=== PATIENT | male | born 1950 | race African-American/Black ===

== ENCOUNTER 2018-10-30 14:33 | Inpatient (IN) | payer MEDICARE, OTHER, SELFPAY ==
[2018-10-30] VITALS (14 sets, daily range): BP systolic 144–182; BP diastolic 84–97; PULSE 37–63; RESP 15–20; TEMP 36.4–36.9; O2SAT 96–100; BMI 33.3; BMI 32.5
[2018-10-30] MEDS: Dextrose 50%-Water 25 GM/50 ML DISP.SYRIN IV (14:41)
--- NOTE | 2018-10-30 15:23 | EKG12_ITS ---
Test Reason : LOW BLOOD SUGAR Blood Pressure : / mmHG Vent. Rate : 048 BPM Atrial Rate : 048 BPM P-R Int : 000 ms QRS Dur : 102 ms QT Int : 470 ms P-R-T Axes : 000 025 077 degrees QTc Int : 419 ms Atrial flutter with slow ventricular response Septal infarct , age undetermined Abnormal ECG Confirmed by JAYMIE DIAS ([id number]), subeditor MEENU PATEL ([id number]) on 11/13/2018 1:49:23 PM Referred By: MARIELENA Confirmed By:JAYMIE DIAS
--- NOTE | 2018-10-30 15:37 | NURSING ---
COAGS AND CHEMISTRIES HEMOLIZED. LAB WILL REPRINT LABELS
[2018-10-30 15:51] LABS: Bedside Glucose 173 mg/dL (70-110)
[2018-10-30 15:51] LABS: Bedside Glucose 97 mg/dL (70-110)
[2018-10-30 15:51] LABS: Bedside Glucose 44 mg/dL (70-110)
--- NOTE | 2018-10-30 16:20 | NURSING ---
112 OBS SYNCOPE, HYPOGLYCEMIA, ATRIAL FLUTTER FOREIGN
[2018-10-30 16:21] LABS: International Normalized Ratio 9.5
[2018-10-30] MEDS: Aspirin 81 MG TAB.CHEW 324 MG PO (16:27)
[2018-10-30 16:30] LABS: Anion Gap 10 (5-15); BUN 19 mg/dL (7-18); BUN/Creat Ratio 18.3 RATIO (10-20); Calcium,Total 8.9 mg/dL (8.5-10.1); Chloride 110 mmol/L (98-107); Creatinine, Serum 1.04 mg/dL (0.70-1.30); EST Glomerular Filtration Rate 76 mL/min (>60); Est Glom Filt Rate - Afr Amer 92 mL/min (>60); Estimated Creatinine Clearance 69.87 ml/min; Glucose 100 mg/dL (74-106); Potassium 4.2 mmol/L (3.5-5.1); Prothrombin Time (Protime)PT. 77.6 SECONDS (11.7-14.9); Sodium Level 142 mmol/L (136-145)
--- NOTE | 2018-10-30 16:35 | CT_ITS ---
STUDY: CT BRAIN WITHOUT CONTRAST REASON FOR EXAM: Male, 68 years old. Fall. History of meningioma removal. RADIATION DOSAGE (If Supplied By Facility): CTDIvol = ( 44.99 ) mGy, DLP = ( 812.98 ) mGycm TECHNIQUE: Transaxial CT imaging of the brain was performed without administration of intravenous contrast material. Individualized dose optimization techniques were used for this CT. COMPARISON: CT dated 06/16/2011 FINDINGS: There are postsurgical changes from resection of the previously seen hyperdense mass (presumed meningioma. There is right frontal, temporal and parietal infarcts with encephalomalacia. There is no acute bleed or infarct. There are stable chronic ischemic changes. The ventricles are normal in configuration. There is no hydrocephalus. The visualized paranasal sinuses are clear. The mastoid air cells are well aerated. There is no skull fracture. CT/Brain/Head without Contrast IMPRESSION: No acute bleed or infarct. Postsurgical changes from resection of the previously seen right-sided hyperdense mass (presumed meningioma). 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 Stable chronic ischemic changes. Electronically Signed: Onel Perez, at 17:31 EST Tel , Service support ,
--- NOTE | 2018-10-30 16:41 | ED.VISSUMM ---
- ER Visit Summary Date of Service: 10/30/18 Chief Complaint: Syncope History of Present Illness: The patient is a 68 M presenting for evaluation secondary to a syncopal episode. Patient reports that he was in the bathroom today, stood up and started to feel as if he was going to be syncopal. This was associated as a lightheaded type feeling. Patient states that he started to fall, grabbed a towel bar, and then fell to the ground. He denies hitting his head. Patient states he was unable to get up off of the ground. EMS was contacted the patient was noted to be profoundly hypoglycemic. Patient informs me that he has been having issues with hypoglycemia recently, and has been self adjusting his dosages. He also endorses that he is been getting recent chest pain. Patient does have an underlying history of chronic atrial flutter. He sees Dr. Kelsey. He denies recent infectious signs or symptoms. Review of systems otherwise negative. Physical Examination: Vital signs notable for heart rate of 57. Well-nourished male no acute distress. Head normocephalic atraumatic. PRL, EOMI. Moist mucous membranes noted. Neck was supple. Heart was bradycardic and regular with a 3 out of 6 systolic murmur. Lungs are clear. Abdomen soft nontender. Back nontender. Extremities nontender nonedematous. Skin normal color no rash. Patient was alert and oriented no lateralizing neurological deficits. Test Results: EKG demonstrates atrial flutter with an atrial rate approximately 200 and a ventricular rate of 48. Troponin indeterminately elevated at 0.09. INR is elevated at 9. CT brain is currently pending Emergency Department Course and Treatment: Patient presented secondary to a syncopal episode. He was initially found to be profoundly hypoglycemic he was given D50 had improvement was given a p.o. diet. 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 He recommended decreasing his beta-zeeshan dose and admitted to the hospital for observation. Patient's laboratory workup shows an indeterminate troponin and an INR of 9. I went back in and spoke with patient again, now he is actually stating that he did hit his head. CT of the brain will be obtained. I discussed this with the hospitalist. Patient will be admitted pending the CT brain which will be followed up. Disposition: Admission pending CT Impression: 1. Syncope 2. Hypoglycemia 3. Chronic atrial flutter 4. Supratherapeutic INR This note was generated with [employer] dictation software. It may contain incorrect words, spelling, and punctuation that were not noted in review of the chart prior to signing ED Disposition - Plan for ED Patient: Chief Complaint: Hypoglycemia Referrals: Pratibha Canales MD [Primary Care Provider] -
--- NOTE | 2018-10-30 16:46 | ED.DCSUM_ITS ---
- ER Visit Summary Date of Service: 10/30/18 Chief Complaint: Syncope History of Present Illness: The patient is a 68 M presenting for evaluation secondary to a syncopal episode. Patient reports that he was in the bathroom today, stood up and started to feel as if he was going to be syncopal. This was associated as a lightheaded type feeling. Patient states that he started to fall, grabbed a towel bar, and then fell to the ground. He denies hitting his head. Patient states he was unable to get up off of the ground. EMS was contacted the patient was noted to be profoundly hypoglycemic. Patient informs me that he has been having issues with hypoglycemia recently, and has been self adjusting his dosages. He also endorses that he is been getting recent chest pain. Patient does have an underlying history of chronic atrial flutter. He sees Dr. Kelsey. He denies recent infectious signs or symptoms. Review of systems otherwise negative. Physical Examination: Vital signs notable for heart rate of 57. Well-nourished male no acute distress. Head normocephalic atraumatic. PRL, EOMI. Moist mucous membranes noted. Neck was supple. Heart was bradycardic and regular with a 3 out of 6 systolic murmur. Lungs are clear. Abdomen soft nontender. Back nontender. Extremities nontender nonedematous. Skin normal color no rash. Patient was alert and oriented no lateralizing neurological deficits. Test Results: EKG demonstrates atrial flutter with an atrial rate approximately 200 and a ventricular rate of 48. Troponin indeterminately elevated at 0.09. INR is elevated at 9. CT brain is currently pending Emergency Department Course and Treatment: Patient presented secondary to a syncopal episode. He was initially found to be profoundly hypoglycemic he was given D50 had improvement was given a p.o. diet. 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 He recommended decreasing his beta- zeeshan dose and admitted to the hospital for observation. Patient's laboratory workup shows an indeterminate troponin and an INR of 9. I went back in and spoke with patient again, now he is actually stating that he did hit his head. CT of the brain will be obtained. I discussed this with the hospitalist. Patient will be admitted pending the CT brain which will be followed up. Disposition: Admission pending CT Impression: 1. Syncope 2. Hypoglycemia 3. Chronic atrial flutter 4. Supratherapeutic INR This note was generated with [employer] dictation software. It may contain incorrect words, spelling, and punctuation that were not noted in review of the chart kurtis or to signing ED Disposition - Plan for ED Patient: Chief Complaint: Hypoglycemia Referrals: Pratibha Canales MD [Primary Care Provider] -
[2018-10-30 16:49] LABS: Absolute Lymphocyte Count 0.35 X10^3/ul (0.83-4.51); Absolute Neutrophil Count 8.6 X10^3/uL (2.0-7.7); Basophil# 0.02 X10^3/uL; Basophil% 0.2 % (0-1); Differential Indicated SCAN CRITERIA MET; Eosinophil# 0.13 X10^3/uL; Eosinophils% 1.3 % (0-5); Hematocrit 36.6 % (40-54); Hemoglobin 11.2 g/dl (13.0-16.5); Lymphocyte # 0.35 X10^3/ul (4.0); Lymphocyte % 3.6 % (19-41); Mean Corp Hgb Conc 30.6 g/gl (32-36); Mean Corpuscular Hgb 25.3 pg (27.0-32.0); Mean Corpuscular Volume 82.6 fL (80-94); Monocyte# 0.64 X10^3/uL; Monocyte% 6.6 % (0-10); Neutrophil % 88.1 % (47-70); POSITIVE COUNT NO; POSITIVE DIFFERENTIAL YES; POSITIVE MORPHOLOGY YES; Platelet Count 173 K/mm3 (150-450); RBC Distribution Width CV 21.7 % (11.6-14.6); RBC Distribution Width SD 66.3 fl (35.1-43.9); Red Blood Count 4.43 M/mm3 (4.6-6.2); White Blood Count 9.8 K/mm3 (4.4-11.0)
[2018-10-30 17:02] LABS: Anisocytosis 2+; Hypochromasia 2+; Platelet Estimate ADEQUATE (ADEQ); Target Cells 1+
--- NOTE | 2018-10-30 18:00 | PCM.HP.STD ---
Problem List (1) Syncope Status: Acute Qualifiers: Syncope type: unspecified Qualified Code(s): R55 - Syncope and collapse History of Present Illness Date of Admission: 10/30/18 Chief Complaint: Syncope The patient is a 68 year old M who was seen in the emergency room at [facility] after being brought in by squad after he was found at home on his floor. Patient remembers having what he describes as a syncopal episode, EMS checked patient's blood sugar at home and found it to be 50, IM glucagon and oral glucose was given in the next check by squad was a blood sugar of 27, it was then checked a third time and it was 33. Patient arrived in the emergency room and was alert and oriented x3, initially labs could not be obtained due to poor venous access. Labs were finally obtained and patient's INR was elevated at 9.5, white blood cell count was normal at 9.8, hemoglobin was slightly low at 11.2, chemistry profile was remarkable for a BUN of 19, troponin was slightly elevated at 0.090. During my examination of the patient, he stated that he felt that he hit the back of his head when he passed out, I requested a CT of the head be performed which was negative for evidence of hemorrhage. Patient will be placed in observation status on PCU for syncope with elevated INR-it is not clear whether the patient became hypoglycemic and had a syncopal episode from this or whether he passed out and then became hypoglycemic. Patient's EKG demonstrated atrial flutter with a ventricular rate of approximately 48, the patient's relationship advisor was contacted and verify that the patient normally has this rhythm at this rate.. Past Medical History Allergies No Known Allergies Allergy (Verified 10/30/18 14:41) Home Medications: Ambulatory Orders Medication Instructions Recorded Albuterol Sulfate [Ventolin Hfa] 2 puff INHALATION Q6H PRN PRN 10/30/18 Bumetanide 1 - 2 mg PO PRN PRN 10/30/18 Cholecalciferol (VIT D3) [Vitamin 1,000 unit PO DAILY 10/30/18 D] Glimepiride 2 mg PO DAILY 10/30/18 Insulin Glargine,Hum.rec.anlog 20 unit SQ QHS 10/30/18 [Basaglesperanza Alvarez U-100] Lisinopril 40 mg PO DAILY 10/30/18 Metformin(XR) [Glucophage Xr] 2,000 mg PO DAILY 10/30/18 Metoprolol Tartrate 50 mg PO BID 10/30/18 Multivit-Min/FA/Lycopen/Lutein 1 tab PO DAILY 10/30/18 [Centrum Silver Men Tablet] Omeprazole 20 mg PO BID 10/30/18 Pravastatin Sodium 20 mg PO DAILY 10/30/18 Spironolactone 25 mg PO BID 10/30/18 Topiramate 25 mg PO BID 10/30/18 Warfarin Sodium 3 mg PO MOWEFR 10/30/18 Warfarin Sodium 6 mg PO SUTUTHSA 10/30/18 Surgical History: tonsillectomy, - - Surgery for removal of brain tumor Psychiatric History: No pertinent psych hx Lives: Alone Smoking Status: Former smoker Tobacco Use: Cigarettes Alcohol: None Drugs: None - *Family History Maternal History Items: Stroke Paternal History Items: Heart Disease Review of Systems Constitutional: Denies: Anorexia, Chills, Fever, Night Sweats, Malaise, Weakness, Weight Change, Fatigue Eyes: Denies: Cataracts, Conjunctivae Inflammation, Double vision, Drainage HEENT: Denies: Difficulty Swallowing, Dysphasia, Ear Pain, Eye Pain, Hearing Changes, Nasal bleeding, Nasal Congestion, Post Nasal Drip Cardiovascular: Reports: Syncope - As outlined in chief complaint. Denies: Chest Pain, Claudication, Chest Pressure, Chest Tightness, Edema, Heaviness, Light Headedness, Orthopnea, Palpitations, Paroxysmal Noc. Dyspnea Respiratory: Denies: Cough, Hemoptysis, Pleuritic Pain, Shortness of Breath, Shortness of breath at rest, Shortness of breath upon exertion, Sputum production, Wheezing Gastrointestinal: Denies: Abdominal Pain, Constipation, Diarrhea, Hematemesis, Hematochezia, Nausea, Melena, Vomiting Genitourinary: Denies: Dysuria, Frequency, Hematuria, Hesitancy, Nocturia, Retention, Urgency Musculoskeletal: Denies: Back Pain, Foot Pain, Joint Pain, Joint stiffness, Joint swelling, Joint Tenderness, Leg Pain Skin: Denies: Dryness, Jaundice, Lesions, Pruritis, Rash Neurological: Reports: Seizures - Past history of seizure disorder. Denies: Balance problems, Blurred vision, Double vision, Change in Speech, Slurred speech, Confusion, Difficulty swallowing, Focal weakness, Headaches, Incoordination, Numbness, Tingling Psychiatric: Denies: Anxiety, Depression, Homicidal Ideations, Suicidal Ideations Endocrine: Denies: Change in Body Habitus, Heat/ Cold Intolerance, Polydipsia, Polyuria, Hx of Irradiation Hematologic/ Lymphatic: Denies: Adenopathy, Anemia, Easy Bruising, Easy Bleeding, Petechiae, Purpura VTE Information - Inpt Only VTE Present on Admission: No VTE Mechan Device Prophylaxis: None VTE Pharm Prophylaxis ordered?: No Reason prophylaxis not ordered:: Medical Contraindication - Patient's INR is elevated due to warfarin use Patient Problems: Active and Suspected Problems Syncope (Acute) - Physical Exam General: Alert, Oriented x3, Cooperative, No apparent distress, Well developed, Well nourished HEENT: Atraumatic, PERRLA, EOMI, Normocephalic Oral: Moist Mucosa Neck: Supple, No JVD, Negative Carotid Bruits, No Nuchal Rigidity, Trachea Midline, Thyroid Normal Size and Texture Lungs: Clear to auscultation, Normal air movement, No rhonchi, No wheeze, No rales Cardiovascular: PMI Normal, Irregular Rate, No rub noted, No Gallop Abdomen: Bowel Sounds Present, Soft, Non Tender, Non-Distended, No hernias noted Extremities: No clubbing, No cyanosis, Capillary Refill Less than 3 Seconds Skin: No rashes, No breakdown Musculoskeletal: No Tenderness to Palpation of Joints or Extremities Neurological: Cranial nerves II-XII grossly intact, Neuro grossly intact, Sensory exam intact to light touch and pain, Coordination normal Psych/Mental Status: Normal Affect, Appropriate, Alert and oriented to time, place, person, mood and affect Vital Signs Temp Pulse Resp BP Pulse Ox 98.3 F 47 L 19 H 144/86 H 99 10/30/18 14:34 10/30/18 17:00 10/30/18 17:00 10/30/18 17:00 10/30/18 17:00 Oxygen Flow Rate (L/min) 2 Oxygen Delivery Method Nasal Cannula Weight: 102.3 kg Body Mass Index (BMI) 33.3 Finger Stick Blood Glucose 173 Laboratory Tests Past 24 Hrs 10/30/18 10/30/18 10/30/18 15:00 15:00 16:00 WBC 9.8 RBC 4.43 L Hgb 11.2 L Hct 36.6 L MCV 82.6 MCH 25.3 L MCHC 30.6 L RDW 21.7 H RDW Differential 66.3 H Plt Count 173 MPV 10.0 Immature Gran % (Auto) 0.200 Neut % (Auto) 88.1 H Lymph % (Auto) 3.6 L [place] % (Auto) 6.6 Eos % (Auto) 1.3 Baso % (Auto) 0.2 Absolute Neuts (auto) 8.6 H Absolute Lymphs (auto) 0.35 L Total Counted Not Reportable Differential Comment Platelet Estimate ADEQUATE Hypochromasia 2+ Anisocytosis 2+ Target Cells 1+ PT Cancelled INR Cancelled Sodium Cancelled Potassium Cancelled Chloride Cancelled Carbon Dioxide Cancelled Anion Gap Cancelled BUN Cancelled Creatinine Cancelled Estim Creat Clear Calc Cancelled Est GFR (MDRD) Af Amer Cancelled Est GFR (MDRD) Non-Af Cancelled BUN/Creatinine Ratio Cancelled Glucose Cancelled Calcium Cancelled Troponin I Cancelled 10/30/18 10/30/18 16:00 16:00 WBC RBC Hgb Hct MCV MCH MCHC RDW RDW Differential Plt Count MPV Immature Gran % (Auto) Neut % (Auto) Lymph % (Auto) [place] % (Auto) Eos % (Auto) Baso % (Auto) Absolute Neuts (auto) Absolute Lymphs (auto) Total Counted Differential Comment Platelet Estimate Hypochromasia Anisocytosis Target Cells PT 77.6 H INR 9.5 H* Sodium 142 Potassium 4.2 Chloride 110 H Carbon Dioxide 22.0 Anion Gap 10 BUN 19 H Creatinine 1.04 Estim Creat Clear Calc 69.87 Est GFR (MDRD) Af Amer 92 Est GFR (MDRD) Non-Af 76 BUN/Creatinine Ratio 18.3 Glucose 100 Calcium 8.9 Troponin I 0.090 H POC Glucose 10/30/18 10/30/18 10/30/18 15:42 15:05 14:37 POC Glucose 173 H 97 44 L* Assessment/Plan All Active Problems Syncope (Acute) #1 syncope-etiology unknown, possibly secondary to hypoglycemia, patient will be placed in observation status on PCU, he will be monitored on telemetry #2 hypoglycemia-I will hold the patient's long-acting insulin and give the patient insulin per protocol based on fingerstick blood sugars. #3 supratherapeutic INR-patient's INR is 9.5, I will hold the patient's warfarin and recheck INR in the morning, I did not give the patient vitamin K however, there is no signs of any bleeding at this time #4 elevated troponin-significance unknown, cardiac enzymes will be cycled #5 atrial flutter-chronic #6 past history of seizure disorder-patient still takes Topamax, he states that it has been a while since he seen a neurologist, I do not think that the patient had a seizure based on the history I obtained today. #7 essential hypertension #8 hyperlipidemia Code Visit OBSV E&M: 87143 Initial observation care L3
--- NOTE | 2018-10-30 18:05 | HP.PCM_ITS ---
Problem List (1) Syncope Status: Acute Qualifiers: Syncope type: unspecified Qualified Code(s): R55 - Syncope and collapse History of Present Illness Date of Admission: 10/30/18 Chief Complaint: Syncope The patient is a 68 year old M who was seen in the emergency room at [facility] after being brought in by squad after he was found at home on his floor. Patient remembers having what he describes as a syncopal episode, EMS checked patient's blood sugar at home and found it to be 50, IM glucagon and oral glucose was given in the next check by squad was a blood sugar of 27, it was then checked a third time and it was 33. Patient arrived in the emergency room and was alert and oriented x3, initially labs could not be obtained due to poor venous access. Labs were finally obtained and patient's INR was elevated at 9.5, white blood cell count was normal at 9.8, hemoglobin was slightly low at 11.2, chemistry profile was remarkable for a BUN of 19, troponin was slightly e levated at 0.090. During my examination of the patient, he stated that he felt that he hit the back of his head when he passed out, I requested a CT of the head be performed which was negative for evidence of hemorrhage. Patient will be placed in observation status on PCU for syncope with elevated INR-it is not clear whether the patient became hypoglycemic and had a syncopal episode from this or whether he passed out and then became hypoglycemic. 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 Past Medical History Allergies No Known Allergies Allergy (Verified 10/30/18 14:41) Home Medications: Ambulatory Orders Medication Instructions Recorded Albuterol Sulfate [Ventolin Hfa] 2 puff INHALATION Q6H PRN PRN 10/30/18 Bumetanide 1 - 2 mg PO PRN PRN 10/30/18 Cholecalciferol (VIT D3) [Vitamin 1,000 unit PO DAILY 10/30/18 D] Glimepiride 2 mg PO DAILY 10/30/18 Insulin Glargine,Hum.rec.anlog 20 unit SQ QHS 10/30/18 [Basaglesperanza Alvarez U-100] Lisinopril 40 mg PO DAILY 10/30/18 Metformin(XR) [Glucophage Xr] 2,000 mg PO DAILY 10/30/18 Metoprolol Tartrate 50 mg PO BID 10/30/18 Multivit-Min/FA/Lycopen/Lutein 1 tab PO DAILY 10/30/18 [Centrum Silver Men Tablet] Omeprazole 20 mg PO BID 10/30/18 Pravastatin Sodium 20 mg PO DAILY 10/30/18 Spironolactone 25 mg PO BID 10/30/18 Topiramate 25 mg PO BID 10/30/18 Warfarin Sodium 3 mg PO MOWEFR 10/30/18 Warfarin Sodium 6 mg PO SUTUTHSA 10/30/18 Surgical History: tonsillectomy, - - Surgery for removal of brain tumor Psychiatric History: No pertinent psych hx Lives: Alone Smoking Status: Former smoker Tobacco Use: Cigarettes Alcohol: None Drugs: None - *Family History Maternal History Items: Stroke Paternal History Items: Heart Disease Review of Systems Constitutional: Denies: Anorexia, Chills, Fever, Night Sweats, Malaise, Weakness, Weight Change, Fatigue Eyes: Denies: Cataracts, Conjunctivae Inflammation, Double vision, Drainage HEENT: Denies: Difficulty Swallowing, Dysphasia, Ear Pain, Eye Pain, Hearing Becky nges, Nasal bleeding, Nasal Congestion, Post Nasal Drip Cardiovascular: Reports: Syncope - As outlined in chief complaint. Denies: Chest Pain, Claudication, Chest Pressure, Chest Tightness, Edema, Heaviness, Light Headedness, Orthopnea, Palpitations, Paroxysmal Noc. Dyspnea Respiratory: Denies: Cough, Hemoptysis, Pleuritic Pain, Shortness of Breath, Shortness of breath at rest, Shortness of breath upon exertion, Sputum production, Wheezing Gastrointestinal: Denies: Abdominal Pain, Constipation, Diarrhea, Hematemesis, H ematochezia, Nausea, Melena, Vomiting Genitourinary: Denies: Dysuria, Frequency, Hematuria, Hesitancy, Nocturia, Retention, Urgency Musculoskeletal: Denies: Back Pain, Foot Pain, Joint Pain, Joint stiffness, Joint swelling, Joint Tenderness, Leg Pain Skin: Denies: Dryness, Jaundice, Lesions, Pruritis, Rash Neurological: Reports: Seizures - Past history of seizure disorder. Denies: Balance problems, Blurred vision, Double vision, Change in Speech, Slurred speech, Confusion, Difficulty swallowing, Focal weakness, Headaches, Incoordination, Numbness, Tingling Psychiatric: Denies: Anxiety, Depression, Homicidal Ideations, Suicidal Ideations Endocrine: Denies: Change in Body Habitus, Heat/ Cold Intolerance, Polydipsia, Polyuria, Hx of Irradiation Hematologic/ Lymphatic: Denies: Adenopathy, Anemia, Easy Bruising, Easy Bleeding, Petechiae, Purpura VTE Information - Inpt Only VTE Present on Admission: No VTE Mechan Device Prophylaxis: None VTE Pharm Prophylaxis ordered?: No Reason prophylaxis not ordered:: Medical Contraindication - Patient's INR is elevated due to warfarin use Patient Problems: Active and Suspected Problems Syncope (Acute) - Physical Exam General: Alert, Oriented x3, Cooperative, No apparent distress, Well developed, Well nourished HEENT: Atraumatic, PERRLA, EOMI, Normocephalic Oral: Moist Mucosa Neck: Supple, No JVD, Negative Carotid Bruits, No Nuchal Rigidity, Trachea Midline, Thyroid Normal Size and Texture Lungs: Clear to auscultation, Normal air movement, No rhonchi, No wheeze, No rales Cardiovascular: PMI Normal, Irregular Rate, No rub noted, No Gallop Abdomen: Bowel Sounds Present, Soft, Non Tender, Non-Distended, No hernias noted Extremities: No clubbing, No cyanosis, Capillary Refill Less than 3 Seconds Skin: No rashes, No breakdown Musculoskeletal: No Tenderness to Palpation of Joints or Extremities Neurological: Cranial nerves II-XII grossly intact, Neuro grossly intact, Sensory exam intact to light touch and pain, Coordination normal Psych/Mental Status: Normal Affect, Appropriate, Alert and oriented to time, place, person, mood and affect Vital Signs Temp Pulse Resp BP Pulse Ox 98.3 F 47 L 19 H 144/86 H 99 10/30/18 14:34 10/30/18 17:00 10/30/18 17:00 10/30/18 17:00 10/30/18 17:00 Oxygen Flow Rate (L/min) 2 Oxygen Delivery Method Nasal Cannula Weight: 102.3 kg Body Mass Index (BMI) 33.3 Finger Stick Blood Glucose 173 Laboratory Tests Past 24 Hrs 10/30/18 10/30/18 10/30/18 15:00 15:00 16:00 WBC 9.8 RBC 4.43 L Hgb 11.2 L Hct 36.6 L MCV 82.6 MCH 25.3 L MCHC 30.6 L RDW 21.7 H RDW Differential 66.3 H Plt Count 173 MPV 10.0 Immature Gran % (Auto) 0.200 Neut % (Auto) 88.1 H Lymph % (Auto) 3.6 L [place] % (Auto) 6.6 Eos % (Auto) 1.3 Baso % (Auto) 0.2 Absolute Neuts (auto) 8.6 H Absolute Lymphs (auto) 0.35 L Total Counted Not Reportable Differential Comment Platelet Estimate ADEQUATE Hypochromasia 2+ Anisocytosis 2+ Target Cells 1+ PT Cancelled INR Cancelled Sodium Cancelled Potassium Cancelled Chloride Cancelled Carbon Dioxide Cancelled Anion Gap Cancelled BUN Cancelled Creatinine Cancelled Estim Creat Clear Calc Cancelled Est GFR (MDRD) Af Amer Cancelled Est GFR (MDRD) Non-Af Cancelled BUN/Creatinine Ratio Cancelled Glucose Cancelled Calcium Cancelled Troponin I Cancelled 10/30/18 10/30/18 16:00 16:00 WBC RBC Hgb Hct MCV MCH MCHC RDW RDW Differential Plt Count MPV Immature Gran % (Auto) Neut % (Auto) Lymph % (Auto) [place] % (Auto) Eos % (Auto) Baso % (Auto) Absolute Neuts (auto) Absolute Lymphs (auto) Total Counted Differential Comment Platelet Estimate Hypochromasia Anisocytosis Target Cells PT 77.6 H INR 9.5 H* Sodium 142 Potassium 4.2 Chloride 110 H Carbon Dioxide 22.0 Anion Gap 10 BUN 19 H Creatinine 1.04 Estim Creat Clear Calc 69.87 Est GFR (MDRD) Af Amer 92 Est GFR (MDRD) Non-Af 76 BUN/Creatinine Ratio 18.3 Glucose 100 Calcium 8.9 Troponin I 0.090 H POC Glucose 10/30/18 10/30/18 10/30/18 15:42 15:05 14:37 POC Glucose 173 H 97 44 L* Assessment/Plan All Active Problems Syncope (Acute) #1 syncope-etiology unknown, possibly secondary to hypoglycemia, patient will be placed in observation status on PCU, he will be monitored on telemetry #2 hypoglycemia-I will hold the patient's long-acting insulin and give the patient insulin per protocol based on fingerstick blood sugars. #3 supratherapeutic INR-patient's INR is 9.5, I will hold the patient's warfarin and recheck INR in the morning, I did not give the patient vitamin K however, there is no signs of any bleeding at this time #4 elevated troponin-significance unknown, cardiac enzymes will be cycled #5 atrial flutter-chronic #6 past history of seizure disorder-patient still takes Topamax, he states that it has been a while since he seen a neurologist, I do not think that the patient had a seizure based on the history I obtained today. #7 essential hypertension #8 hyperlipidemia Code Visit OBSV E&M: 29127 Initial observation care L3
[2018-10-30 18:51] LABS: Bedside Glucose 58 mg/dL (70-110)
[2018-10-30] MEDS: 0.9% Normal Saline 1,000 ML 75 ML IV (18:59)
[2018-10-30 19:20] LABS: Bedside Glucose 71 mg/dL (70-110)
[2018-10-30 19:20] LABS: Bedside Glucose 87 mg/dL (70-110)
[2018-10-30] MEDS: Spironolactone 25 MG Tablet PO (20:51)
[2018-10-30] MEDS: Glucerna Shake 120 ML LIQUID PO (20:51)
[2018-10-30] MEDS: Metoprolol Tartrate 50 MG Tablet PO (20:51)
[2018-10-30] MEDS: Topiramate 25 MG Tablet PO (20:53)
[2018-10-30] MEDS: Pantoprazole Sodium 20 MG Tablet PO (20:53)
[2018-10-30] MEDS: Pravastatin 20 MG Tablet PO (20:53)
[2018-10-30 21:46] LABS: Bedside Glucose 113 mg/dL (70-110)
[2018-10-31] VITALS (22 sets, daily range): BP systolic 98–157; BP diastolic 66–93; PULSE 34–74; RESP 18–24; TEMP 36.3–36.7; O2SAT 94–100
[2018-10-31] MEDS: DiphenhydrAMINE 25 MG Capsule 50 MG PO ×2 (00:07→23:29)
[2018-10-31] MEDS: Albuterol 2.5 MG/3 ML VIAL.NEB. INHALATION (04:18)
[2018-10-31 04:52] LABS: Bedside Glucose 69 mg/dL (70-110)
[2018-10-31 04:52] LABS: Bedside Glucose 48 mg/dL (70-110)
[2018-10-31 04:52] LABS: Bedside Glucose 82 mg/dL (70-110)
[2018-10-31] MEDS: Ipratropium/Albuterol Sulfate 3 ML AMPUL.NEB INHALATION ×4 (06:58→19:45)
[2018-10-31 07:01] LABS: Anion Gap 9 (5-15); BUN 17 mg/dL (7-18); BUN/Creat Ratio 15.9 RATIO (10-20); Calcium,Total 8.5 mg/dL (8.5-10.1); Chloride 113 mmol/L (98-107); Creatinine, Serum 1.07 mg/dL (0.70-1.30); EST Glomerular Filtration Rate 73 mL/min (>60); Est Glom Filt Rate - Afr Amer 89 mL/min (>60); Estimated Creatinine Clearance 67.91 ml/min; Glucose 82 mg/dL (74-106); Potassium 4.4 mmol/L (3.5-5.1); Sodium Level 144 mmol/L (136-145)
[2018-10-31 07:06] LABS: Bedside Glucose 79 mg/dL (70-110)
[2018-10-31 07:06] LABS: Bedside Glucose 93 mg/dL (70-110)
[2018-10-31 07:09] LABS: Prothrombin Time (Protime)PT. 77.4 SECONDS (11.7-14.9)
[2018-10-31 07:48] LABS: International Normalized Ratio 9.5
[2018-10-31] MEDS: Topiramate 25 MG Tablet PO ×2 (09:38→21:20)
[2018-10-31] MEDS: Pantoprazole Sodium 20 MG Tablet PO ×2 (09:38→21:20)
[2018-10-31] MEDS: Spironolactone 25 MG Tablet PO ×2 (09:38→21:20)
[2018-10-31] MEDS: Lisinopril 40 MG Tablet PO (09:38)
[2018-10-31] MEDS: Phytonadione (Vit K) 10 MG/ML Ampul 5 MG PO (09:39)
--- NOTE | 2018-10-31 09:49 | PCM.PN.HOSP ---
Patient Problems: Active and Suspected Problems Syncope (Acute) Subjective: Feels better, though still a little weak. Hi BG was 48 earlier this morning. No fevers, chills, or SOB. Vitals/I&O's: Vital Signs Temp Pulse Resp BP Pulse Ox 98.1 F 47 L 20 H 141/77 H 94 10/31/18 09:38 10/31/18 09:38 10/31/18 09:38 10/31/18 09:38 10/31/18 09:38 Oxygen Flow Rate (L/min) 2 Oxygen Delivery Method Room Air Weight: 220 lb 3.869 oz Body Mass Index (BMI) 32.5 Finger Stick Blood Glucose 173 Intake and Output for Last 24 Hours 10/29/18 10/30/18 10/31/18 23:59 23:59 23:59 Intake Total 809 / 809 1121 / 1121 Balance 809 / 809 1121 / 1121 General: Alert, Oriented x3, Cooperative, No apparent distress HEENT: Atraumatic, EOMI, Normocephalic Oral: Moist Mucosa Neck: Supple, No JVD Lungs: Clear to auscultation, Normal air movement, No rhonchi, No wheeze, No rales Cardiovascular: Regular rate, Regular Rhythm, Normal S1, Normal S2, No murmurs Abdomen: Soft, Non Tender, Non-Distended, No Hepato-splenomegaly Extremities: No edema, Capillary Refill Less than 3 Seconds Skin: No rashes, No breakdown Neurological: Neuro grossly intact, Sensory exam intact to light touch and pain Psych/Mental Status: Normal Affect, Appropriate Laboratory Results 10/30/18 14:37: POC Glucose 44 L* 10/30/18 15:00: Sodium Cancelled, Potassium Cancelled, Chloride Cancelled, Carbon Dioxide Cancelled, Anion Gap Cancelled, BUN Cancelled, Creatinine Cancelled, Estim Creat Clear Calc Cancelled, Est GFR (MDRD) Af Amer Cancelled, Est GFR (MDRD) Non-Af Cancelled, BUN/Creatinine Ratio Cancelled, Glucose Cancelled, Calcium Cancelled, Troponin I Cancelled 10/30/18 15:00: PT Cancelled, INR Cancelled 10/30/18 15:05: POC Glucose 97 10/30/18 15:42: POC Glucose 173 H 10/30/18 16:00: WBC 9.8, RBC 4.43 L, Hgb 11.2 L, Hct 36.6 L, MCV 82.6, MCH 25.3 L, MCHC 30.6 L, RDW 21.7 H, RDW Differential 66.3 H, Plt Count 173, MPV 10.0, Immature Gran % (Auto) 0.200, Neut % (Auto) 88.1 H, Lymph % (Auto) 3.6 L, [place] % (Auto) 6.6, Eos % (Auto) 1.3, Baso % (Auto) 0.2, Absolute Neuts (auto) 8.6 H, Absolute Lymphs (auto) 0.35 L, Total Counted Not Reportable, Differential Comment , Platelet Estimate ADEQUATE, Hypochromasia 2+, Anisocytosis 2+, Target Cells 1+ 10/30/18 16:00: Sodium 142, Potassium 4.2, Chloride 110 H, Carbon Dioxide 22.0, Anion Gap 10, BUN 19 H, Creatinine 1.04, Estim Creat Clear Calc 69.87, Est GFR (MDRD) Af Amer 92, Est GFR (MDRD) Non-Af 76, BUN/Creatinine Ratio 18.3, Glucose 100, Calcium 8.9, Troponin I 0.090 H 10/30/18 16:00: PT 77.6 H, INR 9.5 H* 10/30/18 18:31: POC Glucose 58 L 10/30/18 18:55: POC Glucose 71 10/30/18 19:15: POC Glucose 87 10/30/18 19:28: Troponin I 0.103 H 10/30/18 20:42: POC Glucose 113 H 10/30/18 23:15: Troponin I 0.111 H 10/31/18 03:45: POC Glucose 48 L 10/31/18 04:15: POC Glucose 69 L 10/31/18 04:44: POC Glucose 82 10/31/18 06:07: POC Glucose 93 10/31/18 06:10: Sodium 144, Potassium 4.4, Chloride 113 H, Carbon Dioxide 22.0, Anion Gap 9, BUN 17, Creatinine 1.07, Estim Creat Clear Calc 67.91, Est GFR (MDRD) Af Amer 89, Est GFR (MDRD) Non-Af 73, BUN/Creatinine Ratio 15.9, Glucose 82, Calcium 8.5 10/31/18 06:10: PT 77.4 H, INR 9.5 H* 10/31/18 06:56: POC Glucose 79 10/31/18 08:33: Troponin I 0.099 H Current Medications Acetaminophen (Tylenol) 650 mg PO Q6H PRN PRN PRN Reason: Mild Pain (1-3)/Temp > 100.7 F Albuterol Sulfate (Ventolin Aerosols) 2.5 mg INHALATION Q2H PRN PRN PRN Reason: WHEEZING Last Admin: 10/31/18 04:18 Dose: 2.5 mg Albuterol/Ipratropium (Duoneb) 3 ml INHALATION Q4HWA.RT [facility] Last Admin: 10/31/18 06:58 Dose: 3 ml Dextrose (D50w Syringe) 0 gm IV X1 PRN; Protocol PRN Reason: Hypoglycemia Glucagon () 1 mg IM .X1 PRN PRN Reason: Hypoglycemia Dextrose () 1,000 mls @ 75 mls/hr IV .[id number] [facility] Stop: 11/01/18 07:39 Last Admin: 10/31/18 06:09 Dose: 75 mls/hr Insulin Human Lispro (Humalog Kwikpen (Bkc)) 0 unit SC ACHS [facility]; Protocol Last Admin: 10/31/18 06:09 Dose: Not Given Lisinopril (Zestril) 40 mg PO DAILY [facility] Last Admin: 10/31/18 09:38 Dose: 40 mg Metformin HCl (Glucophage Xr) 2,000 mg PO DAILY@0800 [facility] Last Admin: 10/31/18 07:40 Dose: Not Given Metoprolol Tartrate (Lopressor (Beta Selwyn)) 50 mg PO BID [facility] Last Admin: 10/31/18 09:40 Dose: Not Given Pantoprazole Sodium (Protonix) 20 mg PO BID [facility] Last Admin: 10/31/18 09:38 Dose: 20 mg Pravastatin Sodium (Pravachol) 20 mg PO QHS [facility] Last Admin: 10/30/18 20:53 Dose: 20 mg Sodium Chloride () 5 - 15 ml IV UD PRN PRN Reason: SALINE FLUSH Spironolactone (Aldactone) 25 mg PO BID [facility] Last Admin: 10/31/18 09:38 Dose: 25 mg Topiramate (Topamax) 25 mg PO BID [facility] Last Admin: 10/31/18 09:38 Dose: 25 mg Medical Necessity - Tobacco Use Smoking Status: Former smoker Tobacco Use: Cigarettes Assessment/Plan All Active Problems Syncope (Acute) 1. Syncope/hypoglycemia/elevated troponin/DM 2 -He states that he took a second dose of his long-acting insulin yesterday afternoon and it was after that insulin that he became dizzy and passed out -Currently denies any lightheadedness or dizziness -Hold metformin, continue with sliding scale insulin -Troponin peaked at 0.111 and is now 0.099, likely demand ischemia from his a flutter -He will need to follow-up with his PCP for further outpatient monitoring and testing he will also need better education on the use of insulin as he thought that insulin would raise his blood sugar 2. Supratherapeutic INR/atrial flutter/hypertension/hyperlipidemia -H&H is stable -5 of vitamin K p.o. given today -Recheck INR in a.m. -Flutter is chronic, continue with his metoprolol twice a day his rates are in the 40s-50s that this appears to be baseline -Continue with lisinopril and pravastatin 3. Seizure disorder -Has not seen a neurologist in a while and I do not seizure recently -Continue with Topamax DVT: SCDs Code Visit OBSV E&M: [id number] Subsequent observation care L2
--- NOTE | 2018-10-31 09:58 | PN_ITS ---
Patient Problems: Active and Suspected Problems Syncope (Acute) Subjective: Feels better, though still a little weak. Hi BG was 48 earlier this morning. No fevers, chills, or SOB. Vitals/I&O's: Vital Signs Temp Pulse Resp BP Pulse Ox 98.1 F 47 L 20 H 141/77 H 94 10/31/18 09:38 10/31/18 09:38 10/31/18 09:38 10/31/18 09:38 10/31/18 09:38 Oxygen Flow Rate (L/min) 2 Oxygen Delivery Method Room Air Weight: 220 lb 3.869 oz Body Mass Index (BMI) 32.5 Finger Stick Blood Glucose 173 Intake and Output for Last 24 Hours 10/29/18 10/30/18 10/31/18 23:59 23:59 23:59 Intake Total 809 / 809 1121 / 1121 Balance 809 / 809 1121 / 1121 General: Alert, Oriented x3, Cooperative, No apparent distress HEENT: Atraumatic, EOMI, Normocephalic Oral: Moist Mucosa Neck: Supple, No JVD Lungs: Clear to auscultation, Normal air movement, No rhonchi, No wheeze, No rales Cardiovascular: Regular rate, Regular Rhythm, Normal S1, Normal S2, No murmurs Abdomen: Soft, Non Tender, Non-Distended, No Hepato-splenomegaly Extremities: No edema, Capillary Refill Less than 3 Seconds Skin: No rashes, No breakdown Neurological: Neuro grossly intact, Sensory exam intact to light touch and pain Psych/Mental Status: Normal Affect, Appropriate Laboratory Results 10/30/18 14:37: POC Glucose 44 L* 10/30/18 15:00: Sodium Cancelled, Potassium Cancelled, Chloride Cancelled, Carbon Dioxide Cancelled, Anion Gap Cancelled, BUN Cancelled, Creatinine Cancelled, Estim Creat Clear Calc Cancelled, Est GFR (MDRD) Af Amer Cancelled, Est GFR (MDRD) Non-Af Cancelled, BUN/Creatinine Ratio Cancelled, Glucose Cancelled, Calcium Cancelled, Troponin I Cancelled 10/30/18 15:00: PT Cancelled, INR Cancelled 10/30/18 15:05: POC Glucose 97 10/30/18 15:42: POC Glucose 173 H 10/30/18 16:00: WBC 9.8, RBC 4.43 L, Hgb 11.2 L, Hct 36.6 L, MCV 82.6, MCH 25.3 L, MCHC 30.6 L, RDW 21.7 H, RDW Differential 66.3 H, Plt Count 173, MPV 10.0, Immature Gran % (Auto) 0.200, Neut % (Auto) 88.1 H, Lymph % (Auto) 3.6 L, [place] % (Auto) 6.6, Eos % (Auto) 1.3, Baso % (Auto) 0.2, Absolute Neuts (auto) 8.6 H, Absolute Lymphs (auto) 0.35 L, Total Counted Not Reportable, Differential Comment , Platelet Estimate ADEQUATE, Hypochromasia 2+, Anisocytosis 2+, Target Cells 1+ 10/30/18 16:00: Sodium 142, Potassium 4.2, Chloride 110 H, Carbon Dioxide 22.0, Anion Gap 10, BUN 19 H, Creatinine 1.04, Estim Creat Clear Calc 69.87, Est GFR (MDRD) Af Amer 92, Est GFR (MDRD) Non-Af 76, BUN/Creatinine Ratio 18.3, Glucose 100, Calcium 8.9, Troponin I 0.090 H 10/30/18 16:00: PT 77.6 H, INR 9.5 H* 10/30/18 18:31: POC Glucose 58 L 10/30/18 18:55: POC Glucose 71 10/30/18 19:15: POC Glucose 87 10/30/18 19:28: Troponin I 0.103 H 10/30/18 20:42: POC Glucose 113 H 10/30/18 23:15: Troponin I 0.111 H 10/31/18 03:45: POC Glucose 48 L 10/31/18 04:15: POC Glucose 69 L 10/31/18 04:44: POC Glucose 82 10/31/18 06:07: POC Glucose 93 10/31/18 06:10: Sodium 144, Potassium 4.4, Chloride 113 H, Carbon Dioxide 22.0, Anion Gap 9, BUN 17, Creatinine 1.07, Estim Creat Clear Calc 67.91, Est GFR (MDRD) Af Amer 89, Est GFR (MDRD) Non-Af 73, BUN/Creatinine Ratio 15.9, Glucose 82, Calcium 8.5 10/31/18 06:10: PT 77.4 H, INR 9.5 H* 10/31/18 06:56: POC Glucose 79 10/31/18 08:33: Troponin I 0.099 H Current Medications Acetaminophen (Tylenol) 650 mg PO Q6H PRN PRN PRN Reason: Mild Pain (1-3)/Temp > 100.7 F Albuterol Sulfate (Ventolin Aerosols) 2.5 mg INHALATION Q2H PRN PRN PRN Reason: WHEEZING Last Admin: 10/31/18 04:18 Dose: 2.5 mg Albuterol/Ipratropium (Duoneb) 3 ml INHALATION Q4HWA.RT [facility] Last Admin: 10/31/18 06:58 Dose: 3 ml Dextrose (D50w Syringe) 0 gm IV X1 PRN; Protocol PRN Reason: Hypoglycemia Glucagon () 1 mg IM .X1 PRN PRN Reason: Hypoglycemia Dextrose () 1,000 mls @ 75 mls/hr IV .[id number] [facility] Stop: 11/01/18 07:39 Last Admin: 10/31/18 06:09 Dose: 75 mls/hr Insulin Human Lispro (Humalog Kwikpen (Bkc)) 0 unit SC ACHS [facility]; Protocol Last Admin: 10/31/18 06:09 Dose: Not Given Lisinopril (Zestril) 40 mg PO DAILY [facility] Last Admin: 10/31/18 09:38 Dose: 40 mg Metformin HCl (Glucophage Xr) 2,000 mg PO DAILY@0800 [facility] Last Admin: 10/31/18 07:40 Dose: Not Given Metoprolol Tartrate (Lopressor (Beta [place])) 50 mg PO BID [facility] Last Admin: 10/31/18 09:40 Dose: Not Given Pantoprazole Sodium (Protonix) 20 mg PO BID [facility] Last Admin: 10/31/18 09:38 Dose: 20 mg Pravastatin Sodium (Pravachol) 20 mg PO QHS [facility] Last Admin: 10/30/18 20:53 Dose: 20 mg Sodium Chloride () 5 - 15 ml IV UD PRN PRN Reason: SALINE FLUSH Spironolactone (Aldactone) 25 mg PO BID [facility] Last Admin: 10/31/18 09:38 Dose: 25 mg Topiramate (Topamax) 25 mg PO BID [facility] Last Admin: 10/31/18 09:38 Dose: 25 mg Medical Necessity - Tobacco Use Smoking Status: Former smoker Tobacco Use: Cigarettes Assessment/Plan All Active Problems Syncope (Acute) 1. Syncope/hypoglycemia/elevated troponin/DM 2 -He states that he took a second dose of his long-acting insulin yesterday afternoon and it was after that insulin that he became dizzy and passed out -Currently denies any lightheadedness or dizziness -Hold metformin, continue with sliding scale insulin -Troponin peaked at 0.111 and is now 0.099, likely demand ischemia from his a flutter -He will need to follow-up with his PCP for further outpatient monitoring and testing he will also need better education on the use of insulin as he thought that insulin would raise his blood sugar 2. Supratherapeutic INR/atrial flutter/hypertension/hyperlipidemia -H&H is stable -5 of vitamin K p.o. given today -Recheck INR in a.m. -Flutter is chronic, continue with his metoprolol twice a day his rates are in the 40s-50s that this appears to be baseline -Continue with lisinopril and pravastatin 3. Seizure disorder -Has not seen a neurologist in a while and I do not seizure recently -Continue with Topamax DVT: SCDs Code Visit OBSV E&M: [id number] Subsequent observation care L2
[2018-10-31 11:26] LABS: Bedside Glucose 165 mg/dL (70-110)
[2018-10-31] MEDS: Insulin Lispro 100 UNIT/ML INSULN.PEN SC ×2 (16:41→21:22)
[2018-10-31 16:51] LABS: Bedside Glucose 172 mg/dL (70-110)
[2018-10-31 20:41] LABS: Bedside Glucose 184 mg/dL (70-110)
[2018-10-31] MEDS: Metoprolol Tartrate 50 MG Tablet PO (21:20)
[2018-10-31] MEDS: Pravastatin 20 MG Tablet PO (21:21)
--- NOTE | 2018-10-31 23:22 | NURSING ---
PT HAD A BURST OF AFIB. VITALS AND ACCUCHECK DONE. PT C/O FEELING LIGHTHEADED WHEN RETURNING FROM THE BATHROOM.
[2018-10-31 23:36] LABS: Bedside Glucose 185 mg/dL (70-110)
[2018-11-01 02:22] VITALS: BP 158/99; PULSE 44; RESP 18; TEMP 36.7; O2SAT 95
[2018-11-01 03:11] VITALS: PULSE 47
[2018-11-01 06:30] LABS: International Normalized Ratio 3.1
[2018-11-01 06:51] LABS: Bedside Glucose 126 mg/dL (70-110)
[2018-11-01 07:18] VITALS: PULSE 56; RESP 16; O2SAT 94
[2018-11-01] MEDS: Ipratropium/Albuterol Sulfate 3 ML AMPUL.NEB INHALATION (07:18)
[2018-11-01 07:26] VITALS: PULSE 48
[2018-11-01 09:27] VITALS: BP 160/68; PULSE 97; RESP 18; TEMP 36.6; O2SAT 97
[2018-11-01 09:29] VITALS: PULSE 98
[2018-11-01] MEDS: Metoprolol Tartrate 50 MG Tablet PO (09:29)
[2018-11-01] MEDS: Pantoprazole Sodium 20 MG Tablet PO (09:29)
[2018-11-01] MEDS: Spironolactone 25 MG Tablet PO (09:29)
[2018-11-01] MEDS: Lisinopril 40 MG Tablet PO (09:29)
[2018-11-01] MEDS: Topiramate 25 MG Tablet PO (09:29)
[2018-11-01] MEDS: 0.9% NaCl Peripheral Flush Adult/Peds IV (09:29)
--- NOTE | 2018-11-01 09:36 | DCINST_ITS ---
- Discharge Diagnoses Current Active Problems: Current Active and Chronic Problems Syncope (Acute) You will use the following diet at home:: Calorie/Carbohydrate Controlled (specify 1200, 1400, etc) Your food should be the consistency of: Regular Your liquids should be the consistency of: Regular/Thin Discharge Activity: Return to Normal Activity Call your doctor if you observe: Fever of 101 or Higher, Shortness of breath, Dizziness, Fainting spells, Increased palpitations (irregular heartbeat) Pending Tests on Discharge: INR 11/02 by PCP. Was given 5mg of Vitamin K for an INR of 9.5. 3.1 on day of discharge. Allergies/Adverse Reactions: Allergies No Known Allergies Allergy (Verified 10/30/18 14:41) Medications to take at Discharge Albuterol Sulfate [Ventolin Hfa] 2 puff INHALATION Q6H PRN PRN 10/30/18 Bumetanide 1 - 2 mg PO PRN PRN 10/30/18 Cholecalciferol (VIT D3) [Vitamin D3] 1,000 unit PO DAILY 10/30/18 Glimepiride 2 mg PO DAILY 10/30/18 Insulin Glargine,Hum.rec.anlog [Basaglar Kwikpen U-100] 20 unit SQ QHS 10/30/18 Lisinopril 40 mg PO DAILY 10/30/18 Metformin(XR) [Glucophage Xr] 2,000 mg PO DAILY 10/30/18 Metoprolol Tartrate 50 mg PO BID 10/30/18 Multivit-Min/FA/Lycopen/Lutein [Centrum Silver Men Tablet] 1 tab PO DAILY 10/30/18 Omeprazole 20 mg PO BID 10/30/18 Pravastatin Sodium 20 mg PO DAILY 10/30/18 Spironolactone 25 mg PO BID 10/30/18 Topiramate 25 mg PO BID 10/30/18 Warfarin Sodium 3 mg PO MOWEFR 10/30/18 Warfarin Sodium 6 mg PO SUTUTHSA 10/30/18 Primary Care Physician: Pratibha Canales MD [Primary Care Provider] - Please follow up with your Primary Care Physician in: 3-5 days Test Results: Test results from this visit will be discussed in further detail at your follow- up appointment, if applicable.
--- NOTE | 2018-11-01 09:36 | PCM.DC.SUM ---
Discharge Date and Diagnosis - Problem List Patient Problems: Active and Suspected Problems Syncope (Acute) Date of Admission: 10/30/18 Date of Discharge: 11/01/18 - Primary Discharge Diagnosis Active and Suspected Problems Syncope (Acute) Hospital Course and Treatment Imaging Results: CT Brain: IMPRESSION: No acute bleed or infarct. Postsurgical changes from resection of the previously seen right-sided hyperdense mass (presumed meningioma). 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 Stable chronic ischemic changes. Consults: None Operations: None Procedures: None Summary of Care Provided: Per HPI: The patient is a 68 year old M who was seen in the emergency room at [facility] after being brought in by squad after he was found at home on his floor. Patient remembers having what he describes as a syncopal episode, EMS checked patient's blood sugar at home and found it to be 50, IM glucagon and oral glucose was given in the next check by squad was a blood sugar of 27, it was then checked a third time and it was 33. Patient arrived in the emergency room and was alert and oriented x3, initially labs could not be obtained due to poor venous access. Labs were finally obtained and patient's INR was elevated at 9.5, white blood cell count was normal at 9.8, hemoglobin was slightly low at 11.2, chemistry profile was remarkable for a BUN of 19, troponin was slightly elevated at 0.090. During my examination of the patient, he stated that he felt that he hit the back of his head when he passed out, I requested a CT of the head be performed which was negative for evidence of hemorrhage. Patient will be placed in observation status on PCU for syncope with elevated INR-it is not clear whether the patient became hypoglycemic and had a syncopal episode from this or whether he passed out and then became hypoglycemic. 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 General: Alert, Oriented x3, Cooperative, No apparent distress HEENT: Atraumatic, EOMI, Normocephalic Oral: Moist Mucosa Neck: Supple, No JVD Lungs: Clear to auscultation, Normal air movement, No rhonchi, No wheeze, No rales Cardiovascular: Regular rate, Regular Rhythm, Normal S1, Normal S2, No murmurs Abdomen: Soft, Non Tender, Non-Distended, No Hepato-splenomegaly Extremities: No edema, Capillary Refill Less than 3 Seconds Skin: No rashes, No breakdown Neurological: Neuro grossly intact, Sensory exam intact to light touch and pain Psych/Mental Status: Normal Affect, Appropriate Hospital Course: 1. Syncope/hypoglycemia/elevated troponin/DM 2 - Presented from home with lightheadedness and syncope after he had taken a second dose of his long-acting insulin because he thought that insulin would raise his blood sugar. He has tested it in the morning and it was 50 and he took another 20 units of his long-acting insulin in the afternoon before he passed out. Currently he feels back to his baseline, denies any chest pain, shortness of breath, or lightheadedness. He has been up and walking and now that his blood sugars are back into the mid 100s he feels better. As for his troponin, his EKGs have been nonischemic and he does have a flutter. Since the troponins are trending down he can follow-up as an outpatient and obtain a stress test later this week or next week. He can restart all of his diabetes medications when he goes home. We had an extensive discussion on how to be using his insulin which he expresses that he understands. 2. Supratherapeutic INR/atrial flutter/hypertension/hyperlipidemia - His heart rates are in the 40s in the 50s which seems to be about normal for him, his metoprolol was continued without any adverse effect while being on telemetry. Of note when he presented his INR was 9.5, given how high it is even though he was not bleeding 5 mg of vitamin K p.o. were given. On the day of discharge his INR was 3.1, so he was told that he can resume his Coumadin tonight. He states that he has an appointment with his PCP tomorrow who can recheck an INR and adjust dosages going forward. 3. His other medical diagnoses were evaluated and occasions were continued were appropriate Patient Problems: Active and Suspected Problems Syncope (Acute) - Physical Exam Vital Signs Temp Pulse Resp BP Pulse Ox 97.8 F 98 18 160/68 H 97 11/01/18 09:27 11/01/18 09:29 11/01/18 09:27 11/01/18 09:27 11/01/18 09:27 Oxygen Flow Rate (L/min) 2 Oxygen Delivery Method Room Air Weight: 220 lb 3.869 oz Body Mass Index (BMI) 32.5 Finger Stick Blood Glucose 173 Intake and Output for Last 24 Hours 10/30/18 10/31/18 11/01/18 23:59 23:59 23:59 Intake Total 809 / 809 3883 / 3883 120 / 120 Balance 809 / 809 3883 / 3883 120 / 120 Laboratory Tests Past 24 Hrs 11/01/18 05:45 PT 32.0 H INR 3.1 POC Glucose 11/01/18 10/31/18 10/31/18 06:42 23:31 20:32 POC Glucose 126 H 185 H 184 H 10/31/18 10/31/18 16:38 11:13 POC Glucose 172 H 165 H Discharge Activity: Return to Normal Activity Call your doctor if you observe: Fever of 101 or Higher, Shortness of breath, Dizziness, Fainting spells, Increased palpitations (irregular heartbeat) Home Medications: Medications to take at Discharge Albuterol Sulfate [Ventolin Hfa] 2 puff INHALATION Q6H PRN PRN 10/30/18 Bumetanide 1 - 2 mg PO PRN PRN 10/30/18 Cholecalciferol (VIT D3) [Vitamin D3] 1,000 unit PO DAILY 10/30/18 Glimepiride 2 mg PO DAILY 10/30/18 Insulin Glargine,Hum.rec.anlog [Basaglar Kwikpen U-100] 20 unit SQ QHS 10/30/18 Lisinopril 40 mg PO DAILY 10/30/18 Metformin(XR) [Glucophage Xr] 2,000 mg PO DAILY 10/30/18 Metoprolol Tartrate 50 mg PO BID 10/30/18 Multivit-Min/FA/Lycopen/Lutein [Centrum Silver Men Tablet] 1 tab PO DAILY 10/30/18 Omeprazole 20 mg PO BID 10/30/18 Pravastatin Sodium 20 mg PO DAILY 10/30/18 Spironolactone 25 mg PO BID 10/30/18 Topiramate 25 mg PO BID 10/30/18 Warfarin Sodium 3 mg PO MOWEFR 10/30/18 Warfarin Sodium 6 mg PO SUTUTHSA 10/30/18 Primary Care Physician: Pratibha Canales MD [Primary Care Provider] - Please follow up with your Primary Care Physician in: 3-5 days Disposition: Home Minutes spent on discharge:: 35 Patient Condition:: Good Medical Necessity - Tobacco Use Smoking Status: Former smoker Tobacco Use: Cigarettes Meaningful Use Info Meaningful Use Diagnoses (Choose all that apply): None applicable Code Visit Inpatient E&M: 31527 Disch Hosp
--- NOTE | 2018-11-02 17:20 | CASEMGMT ---
TISH BRINK Discharge Follow-up Phone Call: ERIKHiram: Chuyita Strata: 3 Call Date: 11/02/18 Discharge Date: 11/01/18 Time of Call: [id number] Duration: 2 minutes ? Admitting Diagnosis: Syncope, hypoglycemia This RN KEENA contacted pt via phone regarding discharge follow-up. Pt states he has been doing alright since discharged. Denied any questions regarding his insulin or discharge instructions. States he checked his sugar today and it was 104. States he has been feeling well. Pt states he obtained a follow-up appointment with Dr. Shafer for November 08. Pt denied any concerns or questions . Andrea Johnson RN
== END 2018-11-01 11:49 | disposition home or self-care (01) | DRG 638 ==
LOC: ED 15:30 → PCU 16:51
PROVIDERS: Admitting Provider Internal Medicine; Emergency Provider Emergency Medicine; Family Provider Internal Medicine; PCP Internal Medicine; Visit Provider Family Medicine
DX: E11.649 Type 2 diabetes mellitus with hypoglycemia without coma (principal); I48.92 Unspecified atrial flutter; R79.1 Abnormal coagulation profile; R55 Syncope and collapse; I10 Essential (primary) hypertension; E78.5 Hyperlipidemia, unspecified; R74.8 Abnormal levels of other serum enzymes; Z79.4 Long term (current) use of insulin; Z79.01 Long term (current) use of anticoagulants; Z87.891 Personal history of nicotine dependence; Z79.899 Other long term (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
CPT/HCPCS: 36415; 70450; 80048; 82962; 84484; 85025; 85610; 93005; 94640; 97802; 99285; 99406; J7030; A4216; J1610

== ENCOUNTER → 2018-11-08 09:38 | Outpatient (CLI) | payer MEDICARE, OTHER, SELFPAY ==
[2018-10-30 18:04] VITALS: BMI 32.5
[2018-11-08 09:51] LABS: International Normalized Ratio 3.3; Prothrombin Time (Protime)PT. 34.1 SECONDS (11.7-14.9)
== END ==
PROVIDERS: Family Provider Internal Medicine; PCP Internal Medicine; Referring Provider Nurse Practitioner; Visit Provider Nurse Practitioner
DX: I48.91 Unspecified atrial fibrillation (principal)
CPT/HCPCS: 85610

== ENCOUNTER 2019-01-05 06:10 | Emergency (ER) | payer MEDICARE, OTHER, SELFPAY ==
[2018-10-30 18:04] VITALS: BMI 32.5
[2019-01-05 06:11] VITALS: BP 170/116; PULSE 47; RESP 22; TEMP 36.3; O2SAT 98; BMI 32.5
--- NOTE | 2019-01-05 06:20 | CT_ITS ---
STUDY: CT BRAIN WITHOUT CONTRAST REASON FOR EXAM: Male, 68 years old. Fell against wall, hit head on wall. Patient on Coumadin. Headache. History of atrial fibrillation, seizure, CVA, asthma RADIATION DOSAGE (If Supplied By Facility): CTDIvol = ( 44.99 ) mGy, DLP = ( 829.85 ) mGycm TECHNIQUE: Transaxial CT imaging of the brain was performed without administration of intravenous contrast material. Multiplanar coronal and sagittal images were reformatted. Individualized dose optimization techniques were used for this CT. COMPARISON: CT brain noncontrast 10/30/2018 FINDINGS: Normal soft tissue structures. Postsurgical changes of the right frontoparietal calvarium. Right frontal, temporal and parietal encephalomalacia. There is mild cerebral atrophy with widening of the extra-axial spaces and ventricular dilatation. There are areas of decreased attenuation within the white matter tracts of the supratentorial brain, consistent with microvascular disease changes. Normal basal ganglia and thalami. Normal brainstem. Normal cerebellum. There is no intracranial hemorrhage. There are no findings of an acute ischemic infarction. Normal visualized paranasal sinuses. The bilateral mastoid air cells are clear. CT/Brain/Head without Contrast IMPRESSION: Chronic involutional changes of the brain. Postsurgical changes with right-sided encephalomalacia unchanged. There is no acute intracranial pathology. Electronically Signed: Mally Osei MD at 6:52 EST , Service support ,
--- NOTE | 2019-01-05 06:20 | EKG12_ITS ---
Test Reason : FALL Blood Pressure : / mmHG Vent. Rate : 094 BPM Atrial Rate : 088 BPM P-R Int : 000 ms QRS Dur : 120 ms QT Int : 506 ms P-R-T Axes : 000 111 086 degrees QTc Int : 632 ms Sinus rhythm RSR' or QR pattern in V1 suggests right ventricular conduction delay Left posterior fascicular block Cannot rule out Anterior infarct , age undetermined Abnormal ECG Confirmed by HOWARD BUSTILLO, BRADY ([id number]), marketing editor MEENU PATEL ([id number]) on 01/08/2019 1:38:02 PM Referred By: HAYDE Confirmed By:BRADY LAWRENEC MD
--- NOTE | 2019-01-05 06:24 | ED.DCSUM_ITS ---
- ER Visit Summary Date of Service: 01/05/19 Chief Complaint: [] Syncopal episode History of Present Illness: The patient is a 68 M had a syncopal episode today. He got up to use the bathroom from sleeping. He was urinating got lightheaded and fell into the wall. He slid down the wall. He did put a hole in the wall which he thinks was with his elbow but he is not sure. He has a mild headache. He is unsure if he hit his head. He denies any neck pain. He has some soreness across his low back as well. Denies any other injuries. He is on Coumadin and metoprolol for history of atrial flutter. He was admitted in October for a syncopal episode. At that time he was hypoglycemic because he accidentally took too much insulin. CT head was negative at that time. He was admitted to the hospital. EMS stated today his blood sugar was normal. Physical Examination: [] Vital signs reviewed General: Well-nourished well-developed Head: Normocephalic atraumatic Eyes: Pupils equal round and reactive to light extraocular movements intact ENT: TMs clear no hemotympanum no trauma Neck: Nontender full range of motion Cardiovascular: Regular rate rhythm no murmurs normal S1-S2 Respiratory: No distress clear to auscultation bilaterally chest nontender Abdomen: Soft nontender nondistended normal bowel sounds no masses Back: Low back diffuse soreness to palpation without swelling or deformity Extremities: Nontender active range of motion ?4 extremities no trauma Skin: Normal color no trauma Neuro alert oriented cranial nerves II through XII intact normal strength sensation reflexes Test Results: [] Emergency Department Course and Treatment: [] Patient given IV fluids and morphine. Lab work EKG CT head and lumbar x-ray obtained. CT head and x-ray showed nothing acute. EKG shows atrial flutter rate of 94 no acute ischemia. Unchanged from previous EKG. Lab work shows a hemoglobin 11.7. Platelets 173. Glucose 163. Chloride 111. Patient felt better after treatment. I feel he can be discharged. I feel he had a likely vasovagal syncope. He just bruised his scalp and likely strained his low back. I do not think he needs to be admitted. He was just admitted for syncope in October. His heart rate is 94. Treatment Plan: [] Disposition: [] Impression: [] Syncopal episode suspect vasovagal fall secondary to syncope Blunt head injury Lumbar back pain This note was generated with [employer] dictation software. It may contain incorrect words, spelling, and punctuation that were not noted in review of the chart prior to signing ED Disposition - Plan for ED Patient: Disposition: Home or Assisted Living Instructions: ED Syncope Vasovagal Referrals: Cosme Gonzáles MD [STAFF PHYSICIAN] - Pratibha Canales MD [Primary Care Provider] -
--- NOTE | 2019-01-05 06:35 | RAD_ITS ---
STUDY: X-RAY - LUMBAR SPINE REASON FOR EXAM: Male, 68 years old. Fall, low back pain TECHNIQUE: 3 view(s) of the lumbar spine were obtained. COMPARISON: None FINDINGS: Normal lumbar lordosis. There is no substantial scoliosis. There is a normal alignment of the vertebrae. Mild sclerosis endplates, mild concave vertebral body L2 and L5 without height loss. Normal disc space heights. Facet arthropathy L3-S1. Neural foramina narrowing L4-5-5 S1. Mild osteopenia. There is atherosclerotic calcification of the abdominal aorta without a demonstrated aneurysm. RAD/Lumbar Spine 2 or 3 Views IMPRESSION: Degenerative changes of the spine, as detailed above. There is no acute displaced fracture or dislocation. Mild osteopenia. Electronically Signed: Mally Osei MD at 6:53 EST , Service support ,
--- NOTE | 2019-01-05 06:36 | DCINST.ED_ITS ---
ED Disposition - Plan for ED Patient: Disposition: Home or Assisted Living Instructions: ED Syncope Vasovagal Prescriptions: Hydrocodone Bitart/Apap 5-325 [[place] 5MG-325MG] 1 tab PO Q6H PRN PRN 3 Days #10 tab PRN Reason: Pain Referrals: Pratibha Canales MD [Primary Care Provider] - Cosme Gonzáles MD [STAFF PHYSICIAN] -
[2019-01-05] MEDS: Morphine 4 MG/ML Syringe IV (06:52)
[2019-01-05] MEDS: Ondansetron 4 MG/2 ML Vial IV (07:00)
[2019-01-05 07:01] VITALS: O2SAT 90
[2019-01-05 07:04] VITALS: BP 156/69; PULSE 80; RESP 16; O2SAT 92
[2019-01-05 07:11] LABS: Anion Gap 11 (5-15); BUN 15 mg/dL (7-18); BUN/Creat Ratio 12.8 RATIO (10-20); Calcium,Total 8.8 mg/dL (8.5-10.1); Chloride 111 mmol/L (98-107); Creatinine, Serum 1.17 mg/dL (0.70-1.30); EST Glomerular Filtration Rate 66 mL/min (>60); Est Glom Filt Rate - Afr Amer 80 mL/min (>60); Estimated Creatinine Clearance 62.11 ml/min; Glucose 163 mg/dL (74-106); Potassium 4.6 mmol/L (3.5-5.1); Sodium Level 144 mmol/L (136-145)
[2019-01-05 07:12] LABS: Absolute Lymphocyte Count 0.62 X10^3/ul (0.83-4.51); Absolute Neutrophil Count 9.2 X10^3/uL (2.0-7.7); Basophil# 0.01 X10^3/uL; Basophil% 0.1 % (0-1); Differential Indicated SCAN CRITERIA MET; Eosinophil# 0.01 X10^3/uL; Eosinophils% 0.1 % (0-5); Hematocrit 39.4 % (40-54); Hemoglobin 11.7 g/dl (13.0-16.5); Lymphocyte # 0.62 X10^3/ul (4.0); Lymphocyte % 6.1 % (19-41); Mean Corp Hgb Conc 29.7 g/gl (32-36); Mean Corpuscular Hgb 24.8 pg (27.0-32.0); Mean Corpuscular Volume 83.7 fL (80-94); Monocyte# 0.22 X10^3/uL; Monocyte% 2.2 % (0-10); Neutrophil # 9.22 X10^3/uL (2.7-7.7); Neutrophil % 91.4 % (47-70); POSITIVE COUNT NO; POSITIVE DIFFERENTIAL NO; POSITIVE MORPHOLOGY YES; Platelet Count 144 K/mm3 (150-450); RBC Distribution Width CV 22.1 % (11.6-14.6); RBC Distribution Width SD 68.2 fl (35.1-43.9); Red Blood Count 4.71 M/mm3 (4.6-6.2); White Blood Count 10.1 K/mm3 (4.4-11.0)
[2019-01-05 07:16] LABS: International Normalized Ratio 2.5; Prothrombin Time (Protime)PT. 27.3 SECONDS (11.7-14.9)
--- NOTE | 2019-01-05 08:00 | ED.RN ---
preparing pt fpr dc. reviewed dc instruction.s pt unable to sitt up to side of bed d/t back pain. dr notified new meds ordered.
[2019-01-05] MEDS: Ketorolac 60 MG/2 ML Vial IM (08:04)
[2019-01-05 08:05] LABS: Hypochromasia 1+; Platelet Morphology LARGE
[2019-01-05 08:06] LABS: Schistocytes RARE
[2019-01-05 08:09] VITALS: BP 148/79; PULSE 81; RESP 20; O2SAT 97
--- NOTE | 2019-01-05 09:06 | ED.RN ---
assisted to side of bed and use of urinal. pt tolerated well. reinforced dc instructions and improtance of using walker at home.
== END 2019-01-05 09:06 | disposition home or self-care (01) ==
PROVIDERS: Emergency Medicine; Emergency Provider Emergency Medicine; Family Provider Internal Medicine; PCP Internal Medicine
DX: R55 Syncope and collapse (principal); S09.90XA Unspecified injury of head, initial encounter; W18.00XA Striking against unspecified object with subsequent fall, initial encounter; Y93.9 Activity, unspecified; Y92.9 Unspecified place or not applicable; Y99.9 Unspecified external cause status; I48.92 Unspecified atrial flutter; G40.909 Epilepsy, unspecified, not intractable, without status epilepticus; E11.9 Type 2 diabetes mellitus without complications; M54.5 Low back pain; E66.9 Obesity, unspecified; Z79.4 Long term (current) use of insulin; Z79.01 Long term (current) use of anticoagulants; Z79.899 Other long term (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; Z87.891 Personal history of nicotine dependence
CPT/HCPCS: 70450; 72100; 80048; 85025; 85610; 93005; 96361; 96372; 96374; 96375; 99285; J7030; J7040; A4216; J2405

== ENCOUNTER 2019-01-31 12:27 | Emergency (ER) | payer MEDICARE, OTHER, SELFPAY ==
[2019-01-31 12:27] VITALS: BP 141/84; PULSE 38; PULSE 46; RESP 16; RESP 18; TEMP 36.6; O2SAT 96; O2SAT 98; BMI 34.8
--- NOTE | 2019-01-31 12:34 | EKG12_ITS ---
Test Reason : Blood Pressure : / mmHG Vent. Rate : 051 BPM Atrial Rate : 048 BPM P-R Int : 000 ms QRS Dur : 104 ms QT Int : 514 ms P-R-T Axes : 000 -53 089 degrees QTc Int : 473 ms Atrial Fibrillation Confirmed by BRADY LAWRENCE MD ([id number]), acquisition editor ISREAL HORTON ([id number]) on 02/01/2019 1:12:39 PM Referred By: UMBERTO Confirmed By:BRADY LAWRENCE MD
--- NOTE | 2019-01-31 12:36 | RAD_ITS ---
STUDY: X-RAY - SOFT TISSUE NECK REASON FOR EXAM: Male, 68 years old. Chest pain. History of asthma. TECHNIQUE: AP and lateral view(s) of the neck were obtained. COMPARISON: None. FINDINGS: Normal visualized nasopharynx, oropharynx, hypopharynx. Normal epiglottis. Normal visualized subglottic tracheal air column. Normal prevertebral soft tissue structures. There are degenerative changes of the cervical spine with cervical spondylosis. The soft tissue structures are unremarkable. RAD/Neck for Soft Tissue IMPRESSION: No acute abnormality is seen. Electronically Signed: Erik Sandoval, at 13:37 EDT , Service support ,
--- NOTE | 2019-01-31 12:36 | ED.VIS.GEN ---
History of Present Illness Chief Complaint: Chest Pain Informant: Patient Onset: Today - Chest pain today, Weeks - Increased abdominal girth 3-4 weeks, Month(s) - 2 pillow orthopnea for 2-3 months Context: Gradual Onset Timing: Continuous Quality: Bilateral central chest discomfort without radiation Location: Central chest Current Severity: Mild Maximum Severity: Moderate Worsened by: Nothing Relieved by: Nothing Associated Symptoms: Read narrative Narrative: Patient is an elderly male with multiple medical problems who reports increased abdominal girth, weight gain, 2 pillow orthopnea and lower extremity swelling over the past several weeks to months. Today he developed central chest discomfort without radiation. He may be slightly more short of breath. He denies nausea or diaphoresis. He has no known history of coronary disease. 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 He denies fever, chills or night sweats. He denies ocular, visual auditory symptoms. He states he is using inhaler with no improvement in his wheezing. He is on lisinopril. He denies swelling of his tongue or mouth. Past Medical History - Allergies and Home Meds Allergies/Adverse Reactions: Allergies No Known Allergies Allergy (Verified 01/31/19 12:36) Primary Care Physician: Pratibha Canales MD [Primary Care Provider] - Prior records reviewed: Yes Past Medical History: - - Read HPI Surgical History: tonsillectomy, - - Surgery for removal of brain tumor Lives: Alone Smoking Status: Former smoker Alcohol: None - Family History Maternal Family History: Reports: Stroke Paternal Family History: Reports: Heart Disease Review of Systems General: Reports: Malaise. Denies: Chills, Fever, Sweats, Weight loss Eyes: Denies: Visual changes - bilaterally, Blurred Vision - bilaterally, Diplopia ENT: Reports: - - Denies swelling of his lips, tongue or mouth.. Denies: Rhinorrhea, Sore throat Cardiovascular: Reports: Chest pain Respiratory: Reports: Dyspnea, Dyspnea on exertion, - - He does report wheezing.. Denies: Cough, Sputum, Orthopnea, Paroxysmal nocturnal dyspnea Gastrointestinal: Reports: Abdominal pain, Nausea, - - Increasing abdominal girth. Denies: Vomiting, Diarrhea, Constipation, Melena, Hematochezia Genitourinary: Denies: Dysuria, Hematuria, Frequency Musculoskeletal: Reports: Back pain - Chronic back pain and in therapy, Swelling - Bilateral lower extremity swelling. Denies: Myalgias, Arthralgias, Neck pain, Extremity Pain Skin: Denies: Rash, Wounds Neurological: Reports: Weakness. Denies: Headache, Parasthesia Endocrine: Reports: Polyuria, Polydipsia, Heat intolerance, Cold intolerance, -, - Hematologic: Denies: Easy bruising, Easy bleeding Allergy: Reports: Uticaria, Swelling of the mouth, Swelling of the tongue, -, - Physical Exam Vital Signs/Narrative: Vital Signs Temp Pulse Resp BP Pulse Ox 01/31/19 12:27 97.9 F 46 L 18 141/84 H 98 Inital Vital Signs reviewed: Yes General: Well nourished, Well developed Head: Normocephalic, Atraumatic Eyes: Perrl, EOMI ENT: Moist mucous membranes, No rhinorrhea, - - Expiratory stridor Neck: Supple, Nontender, No lymphadenopathy, No JVD Cardiovascular: Regular rate, Regular rhythm, No murmurs Respiratory: No distress, CTA bilaterally, Chest nontender Abdomen: Soft, Nontender, No masses, Hypoactive bowel sounds, - - There is a fluid wave and shifting dullness consistent with ascites.. Negative for: Nondistended, Normal bowel sounds, Tender, Guarding, Rebound tenderness, Mass, Pulsatile mass Back: Normal Inspection. Negative for: Nontender, CVA tenderness Extremities: Nontender, Edema Skin: Normal color, No rash. Negative for: Cyanosis, Jaundice Neurological: Alert, Oriented x3, Cranial nerves II-XII grossly intact, Normal Strength, Normal Sensation, Normal DTR Psychological: Normal affect, Normal Mood Diagnostic/Tx/Re-eval Chest X-Ray - ED: 1 View, Read by ED Physician, Normal, Lungs, Mediastinum, Bony Structures, No Acute Disease, Cardiomegaly Impressions Soft Tissue Neck X-Ray 01/31/19 12:36 IMPRESSION: No acute abnormality is seen. Electronically Signed: Erik Sandoval, at 13:37 EDT , Service support , Chest X-Ray 01/31/19 13:10 IMPRESSION: Marked cardiomegaly. Electronically Signed: Erik Sandoval, at 13:38 EDT , Service support , 01/31/19 12:36 Xray Neck Soft Tissue [Neck for Soft Tissue] [RAD] Stat 01/31/19 13:10 Chest 1 View (Portable) [RAD] Stat Laboratory Results 01/31/19 01/31/19 01/31/19 13:00 13:00 13:00 WBC 6.6 RBC 4.61 Hgb 11.6 L Hct 37.6 L MCV 81.6 MCH 25.2 L MCHC 30.9 L RDW 23.8 H RDW Differential 69.5 H Plt Count 161 Immature Gran % (Auto) 0.200 Neut % (Auto) 79.0 H Lymph % (Auto) 8.4 L Sterling % (Auto) 8.4 Eos % (Auto) 3.4 Baso % (Auto) 0.6 Absolute Neuts (auto) 5.2 Absolute Lymphs (auto) 0.55 L Total Counted Not Reportable Hypochromasia 1+ Anisocytosis 2+ PT Cancelled INR Cancelled Sodium 142 Potassium 5.6 H Chloride 112 H Carbon Dioxide 23.0 Anion Gap 7 BUN 25 H Creatinine 1.08 Estim Creat Clear Calc 67.28 Est GFR (MDRD) Af Amer 88 Est GFR (MDRD) Non-Af 73 BUN/Creatinine Ratio 23.1 H Glucose 58 L Lactic Acid Calcium 8.5 Total Bilirubin 1.30 H AST 36 ALT 13 L Alkaline Phosphatase 130 H Troponin I 0.060 H Total Protein 7.7 Albumin 3.5 Globulin 4.2 Albumin/Globulin Ratio 0.8 L 01/31/19 01/31/19 13:00 14:08 WBC RBC Hgb Hct MCV MCH MCHC RDW RDW Differential Plt Count Immature Gran % (Auto) Neut % (Auto) Lymph % (Auto) Sterling % (Auto) Eos % (Auto) Baso % (Auto) Absolute Neuts (auto) Absolute Lymphs (auto) Total Counted Hypochromasia Anisocytosis PT 28.7 H INR 2.7 Sodium Potassium Chloride Carbon Dioxide Anion Gap BUN Creatinine Estim Creat Clear Calc Est GFR (MDRD) Af Amer Est GFR (MDRD) Non-Af BUN/Creatinine Ratio Glucose Lactic Acid 1.6 Calcium Total Bilirubin AST ALT Alkaline Phosphatase Troponin I Total Protein Albumin Globulin Albumin/Globulin Ratio - Rhythm Strip Rhythm Strip: A-fib Rate: 43 Ectopy: PVC(s) - Rare - EKG Initial EKG Interpretation: Atrial Fibrillation - Ventricular rate 51. [place] to left. QRS duration is prolonged at 104 ms. Voltage is low. - Medical Decision Making In light of patient's constellation of symptoms we will rule out cardiac cause of his chest pain versus noncardiac. Because he has stridor and is on lisinopril will obtain soft tissue of the neck to assess for swelling or narrowing. There is no evidence of angioedema of the lips, tongue or uvula. He does have ascites but no evidence of spontaneous bacterial peritonitis. CBC was obtained to assess white count and H&H. Electrode panel to assess electrolytes, glucose and anion gap. Troponin to evaluate for acute ischemia to suggest non-ST elevation GA. Because he is on Coumadin and a PT/INR was obtained. Since there is no significant difference in his blood work from prior Dr. Reilly Kelsey was contacted regarding his bradycardia. Plan is to hold the metoprolol until seen by Dr. Reilly Kelsey in 2 days. He will decide the appropriate dose at that time. ED Disposition - Plan for ED Patient: Disposition: Home or Assisted Living Diagnosis: Chest pain, central, Cirrhosis of liver with ascites, Bradycardia on ECG, Chronic a-fib, On Coumadin for atrial fibrillation, Chronic troponin elevation Instructions: ED Chest Pain NonCardiac, ED Afib, ED Bradycardia Referrals: Pratibha Canales MD [Primary Care Provider] - Jong Ordoñez MD [STAFF PHYSICIAN] - 2 Days Additional Instructions: Call Dr. Reilly Kelsey's office for appointment in 2 days. Do not take any metoprolol until seen by Dr. Kelsey. Keep appointment with specialist regarding ascites.
[2019-01-31] MEDS: Furosemide 40 MG/4 ML Vial IV (13:00)
--- NOTE | 2019-01-31 13:10 | RAD_ITS ---
STUDY: X-RAY CHEST REASON FOR EXAM: Male, 68 years old. Chest pain. Bradycardia. TECHNIQUE: Single AP portable view of the chest. COMPARISON: None. FINDINGS: EKG electrodes are seen. The lungs are clear and expanded. There is no demonstrated pleural abnormality. There is severe cardiac enlargement. Normal mediastinum and ashly. Normal visualized pulmonary arteries. There is atherosclerotic calcification of the aortic arch with tortuosity. There are diffuse degenerative changes of the visualized thoracic spine. Normal visualized ribs, clavicles, and shoulders. There is no demonstrated abnormality of the visualized soft tissue structures of the upper abdomen. RAD/Chest 1 View (Portable) IMPRESSION: Marked cardiomegaly. Electronically Signed: Erik Sandoval, at 13:38 EDT , Service support ,
[2019-01-31 13:18] LABS: Absolute Lymphocyte Count 0.55 X10^3/ul (0.83-4.51); Absolute Neutrophil Count 5.2 X10^3/uL (2.0-7.7); Basophil# 0.04 X10^3/uL; Basophil% 0.6 % (0-1); Differential Indicated SCAN CRITERIA MET; Eosinophil# 0.22 X10^3/uL; Eosinophils% 3.4 % (0-5); Hematocrit 37.6 % (40-54); Hemoglobin 11.6 g/dl (13.0-16.5); Lymphocyte # 0.55 X10^3/ul (4.0); Lymphocyte % 8.4 % (19-41); Mean Corp Hgb Conc 30.9 g/gl (32-36); Mean Corpuscular Hgb 25.2 pg (27.0-32.0); Mean Corpuscular Volume 81.6 fL (80-94); Monocyte# 0.55 X10^3/uL; Monocyte% 8.4 % (0-10); Neutrophil # 5.18 X10^3/uL (2.7-7.7); POSITIVE COUNT NO; POSITIVE DIFFERENTIAL YES; POSITIVE MORPHOLOGY YES; Platelet Count 161 K/mm3 (150-450); RBC Distribution Width CV 23.8 % (11.6-14.6); RBC Distribution Width SD 69.5 fl (35.1-43.9); Red Blood Count 4.61 M/mm3 (4.6-6.2); White Blood Count 6.6 K/mm3 (4.4-11.0)
[2019-01-31 13:34] LABS: ALB/GLOB Ratio 0.8 RATIO (0.9-2.4); AST(SGOT) 36 U/L (15-37); Alanine Aminotransfer ALT/SGPT 13 U/L (16-61); Albumin, Serum 3.5 g/dL (3.2-5.0); Alkaline Phosphatase 130 U/L (45-117); Anion Gap 7 (5-15); BUN 25 mg/dL (7-18); BUN/Creat Ratio 23.1 RATIO (10-20); Calcium,Total 8.5 mg/dL (8.5-10.1); Chloride 112 mmol/L (98-107); Creatinine, Serum 1.08 mg/dL (0.70-1.30); EST Glomerular Filtration Rate 73 mL/min (>60); Est Glom Filt Rate - Afr Amer 88 mL/min (>60); Estimated Creatinine Clearance 67.28 ml/min; Globulin 4.2 g/dL (2.2-4.2); Glucose 58 mg/dL (74-106); Potassium 5.6 mmol/L (3.5-5.1); Protein, Total 7.7 g/dL (6.4-8.2); Sodium Level 142 mmol/L (136-145)
[2019-01-31 13:41] VITALS: BP 161/82; PULSE 44; RESP 19; O2SAT 95
[2019-01-31 13:42] LABS: Anisocytosis 2+; Hypochromasia 1+
--- NOTE | 2019-01-31 13:47 | NURSING ---
PER LAB, HEMOLIZED PT
[2019-01-31 13:52] LABS: Lactic Acid 1.6 mmol/L (0.4-2.0)
[2019-01-31 14:24] VITALS: BP 185/96; PULSE 74; RESP 31; O2SAT 95
[2019-01-31 14:27] LABS: International Normalized Ratio 2.7; Prothrombin Time (Protime)PT. 28.7 SECONDS (11.7-14.9)
[2019-01-31 15:35] VITALS: BP 187/90; PULSE 48; RESP 23; O2SAT 96
--- NOTE | 2019-01-31 16:07 | NURSING ---
[facility]
[2019-01-31 16:54] VITALS: BP 162/90; PULSE 49; RESP 22; O2SAT 98; O2SAT 99
--- NOTE | 2019-01-31 16:55 | ED.RN ---
pt encourage to follow-up as soon as possible with pcp. instructed to return to ed if any worsening of s/s. friends at bedside also heard recommendations. pt was pushed to restroom in wheelchair prior to departure. loaded into the car without incident. barry xie rn [id number]
== END 2019-01-31 17:01 | disposition home or self-care (01) ==
PROVIDERS: Emergency Provider Emergency Medicine; Family Provider Internal Medicine; PCP Internal Medicine
DX: R07.9 Chest pain, unspecified (principal); R18.8 Other ascites; K74.60 Unspecified cirrhosis of liver; R00.1 Bradycardia, unspecified; I48.2 Chronic atrial fibrillation; R74.8 Abnormal levels of other serum enzymes; M54.9 Dorsalgia, unspecified; G89.29 Other chronic pain; Z79.01 Long term (current) use of anticoagulants; Z79.82 Long term (current) use of aspirin; Z79.4 Long term (current) use of insulin; Z79.899 Other long term (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; Z87.891 Personal history of nicotine dependence
CPT/HCPCS: 36415; 70360; 71045; 80053; 83605; 84484; 85025; 85610; 93005; 96374; 99285; J7030; A4216; J1940

== ENCOUNTER → 2019-08-13 09:32 | Outpatient (CLI) | payer MEDICARE, OTHER, SELFPAY ==
[2019-04-18 12:44] VITALS: BMI 25.7
--- NOTE | 2019-08-13 09:42 | ECHOD_ITS ---
Reason For Study: Dyspnea/SOB Procedure This was a 2D Doppler, Color Flow transthoracic echocardiogram. The exam was of adequate technical quality. Exam performed in department. Left Ventricle Mildly dilated left ventricle. Severe global left ventricular systolic dysfunction. The estimated ejection fraction is 20 %. Unable to assess diastolic dysfunction. Right Ventricle Mildly dilated right ventricle. Mild global right ventricular systolic dysfunction. Atria The left atrium is mildly enlarged. The right atrium is moderately enlarged. Positive agitated saline contrast study compatible with a right to left interatrial shunt compatible with a small PFO versus ASD. Mitral Valve There is mild mitral annular calcification. Mild diffuse mitral valve thickening. Mild (1+) mitral valve insufficiency. Tricuspid Valve Poor coaptation of the tricuspid valve. Moderate (2+) eccentric tricuspid valve insufficiency. Right ventricular systolic pressure estimated to be 91 mmHg. Aortic Valve Trisinus/trileaflet aortic valve. Mild diffuse aortic valve thickening. Mild focal aortic valve calcification. Aortic sclerosis, no stenosis. Pulmonic Valve The pulmonic valve is not well visualized. Mild (1+) pulmonic valve insufficiency. Great Vessels Normal sized aortic root. Pericardium/Pleural No pericardial effusion. Medication Performed a rapid injection of agitated mix of 9 cc saline and 1cc air to assess for atrial septal defect. MMode/2D Measurements & Calculations LVIDd: 5.7 cm IVSd: 1.3 cm Ao root diam: 3.4 cm LVIDs: 5.2 cm LVPWd: 1.1 cm RVDd: 6.9 cm FS: 9.0 % LAV(MOD-bp): 84.2 ml LA A4 area: 27.1 cm2 LA dimension(2D): 4.8 cm LAV(MOD-bp) Indexed: 41.9 ml/m2 LAV(MOD-sp2): 79.8 ml LAV(MOD-sp4): 87.5 ml RA A4 area: 34.2 cm2 Doppler Measurements & Calculations MV E max yeison: 94.3 cm/sec Ao V2 max: 134.0 cm/sec LV V1 max: 105.5 cm/sec Ao max P.2 mmHg LV V1 max P.9 mmHg Ao V2 mean: 83.1 cm/sec Ao mean P.2 mmHg Ao V2 VTI: 25.4 cm PA V2 max: 65.3 cm/sec PI end-d yeison: 99.5 cm/sec TR max yeison: 436.9 cm/sec TR max P.4 mmHg Interpretation Summary Mildly dilated left ventricle. Severe global left ventricular systolic dysfunction. The estimated ejection fraction is 20 %. Mildly dilated right ventricle. Mild global right ventricular systolic dysfunction. The left atrium is mildly enlarged. The right atrium is moderately enlarged. There is mild mitral annular calcification. Mild diffuse mitral valve thickening. Mild (1+) mitral valve insufficiency. Poor coaptation of the tricuspid valve. Moderate (2+) eccentric tricuspid valve insufficiency. Aortic sclerosis, no stenosis. Mild (1+) pulmonic valve insufficiency. Right ventricular systolic pressure estimated to be 91 mmHg. Unable to assess diastolic dysfunction. Ordering Physician: Cosme Gonzáles Referring Physician: Pratibha Canales Performed By: Mckenna Whitehead, DONAL, RVT
== END ==
PROVIDERS: Family Provider Internal Medicine; PCP Internal Medicine; Referring Provider Internal Medicine Cardiovascular Disease; Visit Provider Internal Medicine Cardiovascular Disease
DX: I36.1 Nonrheumatic tricuspid (valve) insufficiency (principal); I27.20 Pulmonary hypertension, unspecified; R06.02 Shortness of breath; R06.00 Dyspnea, unspecified
CPT/HCPCS: 93306; A4216

== ENCOUNTER → 2019-08-21 17:10 | Outpatient (CLI) | payer MEDICARE, OTHER, SELFPAY ==
[2019-08-21 15:34] VITALS: BMI 28.0
--- NOTE | 2019-08-21 17:15 | RAD_ITS ---
STUDY: X-RAY CHEST REASON FOR EXAM: Male, 69 years old. Preoperative for heart procedure TECHNIQUE: PA and lateral views of the chest. COMPARISON: January 31, 2019. FINDINGS: There are interstitial fibrotic changes of the lower lungs. There is no demonstrated pleural abnormality. There is moderate cardiac enlargement. Normal mediastinum and ashly. Normal visualized pulmonary arteries. Normal visualized aortic arch and descending thoracic aorta. There is a dextroscoliosis of the thoracic spine. Normal visualized ribs, clavicles, and shoulders. There is no demonstrated abnormality of the visualized soft tissue structures of the upper abdomen. RAD/Chest PA and Lateral IMPRESSION: Cardiac enlargement. No focal infiltrate. Electronically Signed: Newton Santos MD at 22:06 EDT , Service support ,
[2019-08-21 17:43] LABS: Absolute Lymphocyte Count 0.45 X10^3/uL (0.83-4.51); Basophil# 0.04 X10^3/uL; Basophil% 0.6 % (0-1); Eosinophil# 0.23 X10^3/uL; Eosinophils% 3.7 % (0-5); Hematocrit 37.8 % (40-54); Hemoglobin 11.6 g/dL (13.0-16.5); Lymphocyte # 0.45 X10^3/ul (4.0); Lymphocyte % 7.2 % (19-41); Mean Corp Hgb Conc 30.7 g/dL (32-36); Mean Corpuscular Hgb 24.7 pg (27.0-32.0); Mean Corpuscular Volume 80.4 fL (80-94); Monocyte# 0.53 X10^3/uL; Monocyte% 8.4 % (0-10); NRBC Flagged by Analyzer 0 % (0-5); Neutrophil # 5.01 X10^3/uL (2.7-7.7); Neutrophil % 79.6 % (47-70); POSITIVE DIFFERENTIAL YES; POSITIVE MORPHOLOGY YES; Platelet Count 149 K/mm3 (150-450); RBC Distribution Width CV 23.7 % (11.6-14.6); RBC Distribution Width SD 67.8 fl (35.1-43.9); White Blood Count 6.3 K/mm3 (4.4-11.0)
[2019-08-21 17:45] LABS: Differential Indicated SCAN CRITERIA MET
[2019-08-21 18:24] LABS: Anisocytosis 1+; Microcytosis RARE; Platelet Estimate ADEQUATE (ADEQ); Red Cell Morphology N CHROM NORMAL (NORM C&C); Target Cells RARE
[2019-08-21 18:25] LABS: Ovalocyte RARE
[2019-08-21 18:41] LABS: ALB/GLOB Ratio 0.8 RATIO (0.9-2.4); AST(SGOT) 13 U/L (15-37); Alanine Aminotransfer ALT/SGPT 17 U/L (16-61); Albumin, Serum 3.5 g/dL (3.2-5.0); Alkaline Phosphatase 162 U/L (45-117); Anion Gap 6 (5-15); BUN 35 mg/dL (7-18); BUN/Creat Ratio 32.1 RATIO (10-20); Calcium,Total 9.1 mg/dL (8.5-10.1); Chloride 111 mmol/L (98-107); Creatinine, Serum 1.09 mg/dL (0.70-1.30); EST Glomerular Filtration Rate 72 mL/min (>60); Est Glom Filt Rate - Afr Amer 87 mL/min (>60); Globulin 4.5 g/dL (2.2-4.2); Glucose 85 mg/dL (74-106); Potassium 4.1 mmol/L (3.5-5.1); Sodium Level 141 mmol/L (136-145)
[2019-08-22 14:41] LABS: Pathologist Review Reviewed
== END ==
PROVIDERS: Family Provider Internal Medicine; PCP Internal Medicine; Referring Provider Nurse Practitioner Family; Visit Provider Nurse Practitioner Family
DX: Z01.818 Encounter for other preprocedural examination (principal); I11.0 Hypertensive heart disease with heart failure; I50.42 Chronic combined systolic (congestive) and diastolic (congestive) heart failure; I27.21 Secondary pulmonary arterial hypertension; I36.1 Nonrheumatic tricuspid (valve) insufficiency; I42.8 Other cardiomyopathies; I48.91 Unspecified atrial fibrillation; I48.92 Unspecified atrial flutter; E78.5 Hyperlipidemia, unspecified; K74.60 Unspecified cirrhosis of liver
CPT/HCPCS: 36415; 71046; 80053; 82140; 85025

== ENCOUNTER → 2019-08-23 12:56 | Outpatient (CLI) | payer MEDICARE, OTHER, SELFPAY ==
[2019-08-21 15:34] VITALS: BMI 28.0
[2019-08-23 13:28] LABS: International Normalized Ratio 3.3; Prothrombin Time (Protime)PT. 33.4 SECONDS (11.7-14.9)
== END ==
PROVIDERS: Family Provider Internal Medicine; PCP Internal Medicine; Referring Provider Internal Medicine; Visit Provider Internal Medicine
DX: I48.20 Chronic atrial fibrillation, unspecified (principal)
CPT/HCPCS: 85610

== ENCOUNTER → 2019-08-31 06:52 | Day surgery (SDC) | payer MEDICARE, OTHER, SELFPAY ==
[2019-08-21 15:34] VITALS: BMI 28.0
[2019-08-31 07:23] VITALS: BMI 26.0
[2019-08-31 07:33] LABS: Prothrombin Time Fingerstick 19.7 SEC (11.9-14.4)
--- NOTE | 2019-08-31 08:24 | CL.D_ITS ---
Patient Name: STEPH BAUMANN Study Date: 08/31/2019 Performing: Cosme Gonzáles MD Ht: 69 inches 175.26 cm : 1950 Wt: 176.48 lbs 80.05 kg Age: 69 Gender: male BSA: 1.96 PROCEDURE(S) PERFORMED TM63-OUB/LHC/COR CLINICAL PROFILE AND INDICATIONS Indications: Cardiomyopathy Heart Failure: NYHA Class: 3 Stress/Imaging Stress/Image Study Performed: No CAD Presentations: Other: sob CONCLUSIONS Normal coronary arteries RECOMMENDATIONS Medical therapy Needs heart rate support DESCRIPTION OF PROCEDURE The patient arrived to the procedure lab. The risks and benefits of the procedure as well as a full d escription of our services here and current unavailability of surgical backup were fully explained to the patient and/or their significant other prior to the catheterization. The Timeout was completed, verifying the correct patient and procedure. The patient's procedural site was prepped and draped in the usual fashion. Local anesthetic was given subcutaneously to right groin region with Lidocaine 2%. Using a modified Seldinger technique, arterial access was obtained via the right femoral artery, a 5 Fr sheath was inserted. Venous access was obtained via the right femoral vein, a 7Fr sheath was inser rogers. A 7Fr thermal dilution catheter was inserted and right heart pressures were recorded, it was the n advanced to PA position for cardiac outputs. O2 saturations were then obtained. The Thermal dilutio n catheter was then removed. Left Coronary Artery selective angiography was performed in multiple views using a 5 Fr. JL4 catheter. Right Coronary Artery selective angiography was then perfo rmed in multiple views using a 5 Fr. 3DRC (Mikie) catheter.The arterial sheath was pulled and manu al compression applied until hemostasis is achieved. CORONARY ANGIOGRAPHY DOMINANCE: Left Dominant LEFT HEART ASSESSMENT Left Ventricular Ejection Fraction: by Echo 20 % Depressed Left Ventricular systolic function RIGHT HEART ASSESSMENT RV: 71/6 21 RA: 19 Right Heart pressures - elevated LEFT MAIN: Angiographically normal LEFT ANTERIOR DESCENDING ARTERY: Angiographically normal CIRCUMFLEX ARTERY: Angiographically normal RIGHT CORONARY ARTERY: Angiographically normal COMPLICATIONS PROCEDURE MEDICATIONS Versed 1 mg IV Oxygen: 2 L/min via nasal cannula SUMMARY OF HEMODYNAMIC DATA Time AIR REST ECG 07:22:34 RA (19) SV 08:03:29 RV 71/6, 21 08:04:23 AO 123/70 (90) SA 08:11:59 Label % O2 Pres/Loc Time AIR REST FA 96 PV 08:13:55 PA 59 PA 08:13:59 Signed By Cosme Gonzáles MD On 08/31/2019 08:23:19 Cosme Gonzáles MD
[2019-08-31 11:05] LABS: Blood Gas Specimen Type VEN; VBG BASE EXCESS -6 mmol/L (-1.0-3.5); VBG Bicarbonate 20 mmol/L (22-26); VBG Oxygen Content 21 mmol/L (23-33); VBG PO2 32 mmHg (25-40); VBG SO2 59 % (50-70); VBG pCO2 36.7 mmHg (41-51); VBG pH 7.35 (7.32-7.42)
[2019-08-31 11:05] LABS: Base Excess -8 mmol/L (-2 to +2); Bicarbonate 16.9 mmol/L (22-26); Blood Gas Specimen Type ART; PO2 84 mmHG (75-100); SO2 96 % (95-99); Total Carbon Dioxide 18 mmol/L; pCO2 28.6 mmHg (35-45); pH 7.38 (7.35-7.45)
--- NOTE | 2019-10-01 04:36 | HP_ITS ---
HPI HPI History of Present Illness Surgical H&P: Yes Details: Mr. Prince is a pleasant 69-year-old gentleman with a history of permanent atrial flutter, hypertension, hyperlipidemia, pulmonary hypertension, congestive heart failure, an nonischemic cardiomyopathy. He also has a history of liver cirrhosis. In 2010 he did suffer a cerebrovascular accident. He also has history of ALBINO with CPAP therapy. He underwent and limited echocardiogram on 09/06/2019 that showed ejection fraction of 25%, mildly enlarged left atrium, severely enlarged right atrium, RVSP of 85 mmHg, severe pulmonary hypertension, severely dilated right ventricle, and severe global right ventricular systolic dysfunction. He underwent a heart catheterization on 08/31/2019 that showed angiographically normal coronary arteries. Due to his reduced ejection fraction and bradycardia he will undergo pacemaker/ICD placement. He denies chest, arm, jaw, or neck discomfort. His exercise tolerance is stable. He denies symptoms of CHF, palpitations, lightheadedness, dizziness, near syncope, or syncopal episodes. He denies edema or claudication issues. He denies orthopnea, PND, fever, chills, blood in urine, blood in stool, myalgia, or unexplainable fatigue. Intake Vital Signs 10/01/19 Height 5 ft 9 in 10/01/19 Weight: 180 lb 10/01/19 Body Mass Index (BMI) 26.6 10/01/19 Blood Pressure 150/86 H 10/01/19 Blood Pressure Location Lt brachial 10/01/19 Blood Pressure Position Sitting 10/01/19 Respiratory Rate 18 10/01/19 Pulse Rate 50 L 10/01/19 Pulse Source Monitor 10/01/19 Pulse Ox 97 Intake Visit Reasons: H&P for ICD imp 12-5, Maribell 3p Computator Required: No Accompanied by: None Is patient in pain?: No Allergies No Known Allergies Allergy (Verified 10/01/19 15:14) Medications Albuterol Sulfate [Ventolin Hfa] 2 puff INHALATION Q6H PRN PRN 10/30/18 [History Confirmed 08/29/19] Insulin Glargine,Hum.rec.anlog [Basaglar Kwikpen U-100] 10 unit SQ QHS 10/30/18 [History Confirmed 08/29/19] Lisinopril 40 mg PO DAILY 10/30/18 [History Confirmed 08/29/19] Omeprazole 20 mg PO BID 10/30/18 [History Confirmed 08/29/19] Pravastatin Sodium 20 mg PO DAILY 10/30/18 [History Confirmed 08/29/19] Spironolactone 25 mg PO BID 10/30/18 [History Confirmed 08/29/19] Topiramate 25 mg PO BID 10/30/18 [History Confirmed 08/29/19] Warfarin Sodium 3 mg PO MOWEFR 10/30/18 [History Confirmed 08/29/19] Warfarin Sodium 6 mg PO SUTUTHSA 10/30/18 [History Confirmed 08/29/19] bumetanide 1 mg tablet 1 - 2 mg PO BID tab 04/17/19 [History Confirmed 08/29/19] metformin ER 500 mg tablet,extended release 24 hr 2,000 mg PO DAILY 90 Days #360 tab 04/17/19 [History Confirmed 08/29/19] metoprolol tartrate 50 mg tablet 25 mg PO DAILY tab 04/17/19 [History Confirmed 08/29/19] [facility] Medical History (Updated 04/17/19 @ 12:33 by Christine Reynolds) Non-rheumatic tricuspid valve insufficiency (Chronic) Atrial fibrillation and flutter (Chronic) Secondary pulmonary arterial hypertension (Chronic) Essential (primary) hypertension (Chronic) Hyperlipidemia (Chronic) Chronic combined systolic and diastolic CHF (congestive heart failure) (Chronic) Nonischemic cardiomyopathy (Chronic) Asthma (Chronic) CVA (cerebral vascular accident) (Chronic 2010) Cholelithiasis (Chronic) Cirrhosis of liver with ascites (Chronic) Obstructive sleep apnea (Chronic) Renal adenoma (Chronic) Seizure disorder (Chronic) Stasis edema of both lower extremities (Chronic) Type 2 diabetes mellitus (Chronic) Benign brain tumor (Resolved) Syncope (Resolved 10/2018) Surgical History (Updated 08/31/19 @ 16:40 by Christine Reynolds) H/O excision of tumor of brain meninges (Resolved 2011) History of left heart catheterization (Resolved 08/31/19) History of right and left heart catheterization (Resolved) History of tonsillectomy (Resolved) Family History (Updated 04/18/19 @ 14:24 by Christine Reynolds) Daughter Heart disease valve replacement/chf Social History (Updated 10/01/19 @ 16:35 by YULIET StevensC) Smoking Status: Former smoker ROS Const Const: Negative for fatigue, weakness, body ache, fever(s) or chills ENT ENT: Negative for dizziness Cardio Chest Pain: No Palpitations: No Edema: None Muscle aches with walking: None Resp Respiratory: Negative for SOB with activity, SOB at rest, SOB orthopnea\SOB lying down or paroxysmal nocturnal dyspnea GI GI: Negative nausea, vomiting blood/hematemesis, bright, red blood in stools or black,tarry stools : Negative for hematuria or frequent nighttime urination/ nocturia Musc Musc: Negative for muscle aches/ myalgia Skin Skin: Negative non-healing lesions or rash Neuro Neuro: Negative for dizziness, lightheadedness, near syncope, syncope, orthostatic symptoms or weakness Endo Endo: Negative for fatigue Allergy Allergy/Immunology: Negative for rash Cardiology Exam Const Appearance: cooperative, healthy appearing, comfortable and no acute distress Nutritional Appearance: well nourished and overweight Orientation: alert, awake and oriented x3 Head Head: normal to inspection Ears: hearing grossly normal bilaterally Nose: external nose normal Face and Sinus: face symmetric Mouth: oral mucosae normal Eyes General: appearance normal, both eyes and all related structures Eyelids: eyelids normal EOM: EOM intact bilaterally Neck Neck: normal visual inspection and no JVD Carotids: normal carotid upstroke Chest Chest inspection: normal inspection of the chest, symmetric chest movement and normal respiratory effort; negative cough Auscultation: Bilateral: Clear to Auscultation Cardio Rate: bradycardic Rhythm: regular rhythm Heart sounds: S1 normal and S2 normal; negative rub, gallop or murmur GI GI: bowel sounds present, distended and ascites; negative tender Neuro General: alert, awake, oriented x3 and CN's II-XI intact bilaterally Skin Skin: no rashes or lesions noted Extremities Pulses: Normal: Right Posterior Tibial Pulse, Left Posterior Tibial Pulse, Right Radial Pulse, Left Radial Pulse Lower Extremity Edema: +1: Bilateral Psych Psychological: normal affect Assessment & Plan 1. Nonischemic cardiomyopathy I42.8 Plan He does not appear to be in a fluid volume overload state today. As noted above, his most recent echocardiogram showed ejection fraction of 25%. He will proceed with ICD placement. He will continue with current medical therapy. We will continue to monitor. A SDM interaction occurred at this visit using an SDM tool prior to initial implant of ICD. 2. Bradycardia R00.1 Plan He continues to have low heart rates. His beta-zeeshan has been discontinued. His EKG today shows sinus bradycardia at a rate of 51 bpm and a QTC of 465 and a QRS of 160. He will proceed with pacemaker placement. Over time, beta-zeeshan can be reinitiated for ischemic cardiomyopathy. Hopefully, over time as his heart rate improves, this also improves his overall heart function. 3. Essential (primary) hypertension I10 Plan Patient's blood pressure is well-controlled. We will continue to monitor. We will not make any medication regimen changes. 4. Hyperlipidemia E78.5 Plan He will continue current statin medication. 5. Secondary pulmonary arterial hypertension I27.21 Plan He will continue with current diuretic therapy and afterload reducing agents. Hopefully, with pacemaker placement, this also improves. Plan Detail Other Orders Orders: 12 Lead EKG performed by [facility] Today I48.91, I48.92 Additional Comments Thank you for allowing us to participate in the patients plan of care, if you have any questions please do not hesitate to call. This note was generated using a voice recognition system and there may be incorrect words, spelling or punctuation that were not noted when reviewing the office note prior to saving. Coding Level of Care Code Off vis,est,level 3 Diagnoses Nonischemic cardiomyopathy I42.8 Bradycardia R00.1 Essential (primary) hypertension I10 Hyperlipidemia E78.5 Secondary pulmonary arterial hypertension I27.21 Coding Level of Care Code Off vis,est,level 3 Diagnoses Nonischemic cardiomyopathy I42.8 Bradycardia R00.1 Essential (primary) hypertension I10 Hyperlipidemia E78.5 Secondary pulmonary arterial hypertension I27.21 Supplemental Info Supplemental Information Heart catheterization from 08/31/2019: CONCLUSIONS Normal coronary arteries RECOMMENDATIONS Medical therapy Needs heart rate support CORONARY ANGIOGRAPHY DOMINANCE: Left Dominant LEFT HEART ASSESSMENT Left Ventricular Ejection Fraction: by Echo 20 % Depressed Left Ventricular systolic function RIGHT HEART ASSESSMENT RV: 71/6 21 RA: 19/16 19 Right Heart pressures - elevated LEFT MAIN: Angiographically normal LEFT ANTERIOR DESCENDING ARTERY: Angiographically normal CIRCUMFLEX ARTERY: Angiographically normal RIGHT CORONARY ARTERY: Angiographically normal Limited echocardiogram from 09/06/2019: Interpretation Summary Normal LV size. Mild concentric left ventricular hypertrophy. The estimated ejection fraction is 25 %. The left atrium is mildly enlarged. The right atrium is severely enlarged. Pulmonary artery systolic pressure is 85 mmHg. Severe pulmonary hypertension. Severely dilated right ventricle. Severe global right ventricular systolic dysfunction. Echocardiogram from 08/13/2019: Interpretation Summary Mildly dilated left ventricle. Severe global left ventricular systolic dysfunction. The estimated ejection fraction is 20 %. Mildly dilated right ventricle. Mild global right ventricular systolic dysfunction. The left atrium is mildly enlarged. The right atrium is moderately enlarged. There is mild mitral annular calcification. Mild diffuse mitral valve thickening. Mild (1+) mitral valve insufficiency. Poor coaptation of the tricuspid valve. Moderate (2+) eccentric tricuspid valve insufficiency. Aortic sclerosis, no stenosis. Mild (1+) pulmonic valve insufficiency. Right ventricular systolic pressure estimated to be 91 mmHg. Unable to assess diastolic dysfunction. Echocardiogram from 08/16/2019 at [facility]: Conclusions: ?Technically difficult exam due to body habitus. ?Exam indication: Known pulmonary hypertension (surveillance >= 1 year) ?The left ventricle is mildly dilated. There is moderate concentric left ventricle hypertrophy. Left ventricle systolic function is mildly decreased. EF equals 44 ?5% (2D biplane) ?The right ventricle is dilated. Right ventricular systolic function is mildly decreased. ?The left atrial cavity severely dilated. ?The right atrial cavity is dilated. ?There is severe (3+?4+) tricuspid valve regurgitation caused by annular dilation. ?Estimated right ventricular systolic pressure is likely underestimated due to a week or incomplete tricuspid regurgitation signal and is, at least, 72 mm consistent with moderately severe pulmonary hypertension. Estimated right atrial pressure is 15 mmHg based on IVC assessment. May also be underestimated due to severity of TR. ?Prior EF was a visual estimate of 50% (08/02/2018). ?Bradycardic throughout exam ?Exam was compared with prior echocardiographic exam performed on 08/02/2018. LV systolic function appears less robust today. RVSP measures lower. Diagnostics Electrocardiogram 10/01/19 Echocardiogram 09/06/19 Cardiac Catheterization 08/31/19 Chest X-Ray 08/21/19 10/01/19 [id number] <Electronically signed by Hans Uriostegui> Date _ [facility] [place] [employer]
== END ==
PROVIDERS: Family Provider Internal Medicine; PCP Internal Medicine; Referring Provider Internal Medicine Cardiovascular Disease; Visit Provider Internal Medicine Cardiovascular Disease
DX: I42.8 Other cardiomyopathies (principal); I11.0 Hypertensive heart disease with heart failure; I50.42 Chronic combined systolic (congestive) and diastolic (congestive) heart failure; I27.21 Secondary pulmonary arterial hypertension; K74.60 Unspecified cirrhosis of liver; G40.909 Epilepsy, unspecified, not intractable, without status epilepticus; E11.9 Type 2 diabetes mellitus without complications; I25.10 Atherosclerotic heart disease of native coronary artery without angina pectoris; I48.91 Unspecified atrial fibrillation; I48.92 Unspecified atrial flutter; I36.1 Nonrheumatic tricuspid (valve) insufficiency; E78.5 Hyperlipidemia, unspecified; J45.909 Unspecified asthma, uncomplicated; G47.33 Obstructive sleep apnea (adult) (pediatric); Z79.01 Long term (current) use of anticoagulants; Z79.4 Long term (current) use of insulin; Z79.899 Other long term (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; Z86.73 Personal history of transient ischemic attack (TIA), and cerebral infarction without residual deficits; Z87.891 Personal history of nicotine dependence
CPT/HCPCS: 36416; 82803; 85610; 93456; 99152; 99153; J7040; C1751; C1769; C1894; Q9967

== ENCOUNTER → 2019-09-06 08:56 | Outpatient (CLI) | payer MEDICARE, OTHER, SELFPAY ==
[2019-08-31 07:23] VITALS: BMI 26.0
--- NOTE | 2019-09-06 08:57 | ECHOL_ITS ---
Reason For Study: CMP Procedure This was a limited 2D transthoracic echocardiogram. Exam performed in department. Left Ventricle Normal LV size. Mild concentric left ventricular hypertrophy. The estimated ejection fraction is 25 %. There is severe global hypokinesis of the left ventricle. Right Ventricle Severely dilated right ventricle. Severe global right ventricular systolic dysfunction. Atria The left atrium is mildly enlarged. The right atrium is severely enlarged. Mitral Valve Normal mitral valve. Tricuspid Valve Normal tricuspid valve. Moderate (2+) tricuspid valve insufficiency. Pulmonary artery systolic pressure is 85 mmHg. Severe pulmonary hypertension. Aortic Valve Normal aortic valve. Trisinus/trileaflet aortic valve. Pulmonic Valve Normal pulmonic valve. Mild (1+) pulmonic valve insufficiency. Great Vessels Normal aortic root. The pulmonary artery is normal size. Normal inferior vena cava. Pericardium/Pleural No pericardial effusion. MMode/2D Measurements & Calculations LVIDd: 4.9 cm IVSd: 1.5 cm LA dimension: 4.8 cm LVIDs: 4.5 cm LVPWd: 1.2 cm FS: 7.7 % LAV(MOD-sp4): 79.0 ml LVAd ap4: 38.1 cm2 SV(MOD-sp4): 34.2 ml EDV(MOD-sp4): 131.6 ml EDV(sp4-el): 134.3 ml LVAs ap4: 30.8 cm2 ESV(MOD-sp4): 97.4 ml ESV(sp4-el): 98.2 ml EF(MOD-sp4): 26.0 % EF(sp4-el): 26.9 % SV(sp4-el): 36.1 ml LA A4 area: 24.0 cm2 RA A4 area: 37.0 cm2 Doppler Measurements & Calculations PA V2 max: 90.6 cm/sec PI end-d yeison: 115.4 cm/sec TR max yeison: 443.8 cm/sec TR max P.8 mmHg Interpretation Summary Normal LV size. Mild concentric left ventricular hypertrophy. The estimated ejection fraction is 25 %. The left atrium is mildly enlarged. The right atrium is severely enlarged. Pulmonary artery systolic pressure is 85 mmHg. Severe pulmonary hypertension. Severely dilated right ventricle. Severe global right ventricular systolic dysfunction. Ordering Physician: Cosme Gonzáles Referring Physician: Cosme Gonzáles Performed By: Jon Salvador RCS
== END ==
PROVIDERS: Family Provider Internal Medicine; PCP Internal Medicine; Referring Provider Internal Medicine Cardiovascular Disease; Visit Provider Internal Medicine Cardiovascular Disease
DX: I36.1 Nonrheumatic tricuspid (valve) insufficiency (principal); I11.0 Hypertensive heart disease with heart failure; I50.42 Chronic combined systolic (congestive) and diastolic (congestive) heart failure; I27.21 Secondary pulmonary arterial hypertension; I42.8 Other cardiomyopathies; I48.91 Unspecified atrial fibrillation; I48.92 Unspecified atrial flutter; E78.5 Hyperlipidemia, unspecified
CPT/HCPCS: 93308

== ENCOUNTER → 2019-09-13 11:55 | Outpatient (CLI) | payer MEDICARE, OTHER, SELFPAY ==
[2019-08-31 07:23] VITALS: BMI 26.0
[2019-09-13 12:20] LABS: International Normalized Ratio 2.1; Prothrombin Time (Protime)PT. 23.9 SECONDS (11.7-14.9)
== END ==
PROVIDERS: Family Provider Internal Medicine; PCP Internal Medicine; Visit Provider Internal Medicine
DX: I48.20 Chronic atrial fibrillation, unspecified (principal)
CPT/HCPCS: 85610

== ENCOUNTER → 2019-09-27 13:01 | Outpatient (CLI) | payer MEDICARE, OTHER, SELFPAY ==
[2019-08-31 07:23] VITALS: BMI 26.0
[2019-09-27 13:41] LABS: International Normalized Ratio 2.7; Prothrombin Time (Protime)PT. 28.8 SECONDS (11.7-14.9)
== END ==
PROVIDERS: Family Provider Internal Medicine; PCP Internal Medicine; Referring Provider Internal Medicine; Visit Provider Internal Medicine
DX: I48.20 Chronic atrial fibrillation, unspecified (principal)
CPT/HCPCS: 85610

== ENCOUNTER → 2019-10-01 16:15 | Outpatient (CLI) | payer MEDICARE, OTHER, SELFPAY ==
[2019-08-31 07:23] VITALS: BMI 26.0
--- NOTE | 2019-10-01 04:36 | HP_ITS ---
HPI HPI History of Present Illness Surgical H&P: Yes Details: Mr. Prince is a pleasant 69-year-old gentleman with a history of permanent atrial flutter, hypertension, hyperlipidemia, pulmonary hypertension, congestive heart failure, an nonischemic cardiomyopathy. He also has a history of liver cirrhosis. In 2010 he did suffer a cerebrovascular accident. He also has history of ALBINO with CPAP therapy. He underwent and limited echocardiogram on 09/06/2019 that showed ejection fraction of 25%, mildly enlarged left atrium, severely enlarged right atrium, RVSP of 85 mmHg, severe pulmonary hypertension, severely dilated right ventricle, and severe global right ventricular systolic dysfunction. He underwent a heart catheterization on 08/31/2019 that showed angiographically normal coronary arteries. Due to his reduced ejection fraction and bradycardia he will undergo pacemaker/ICD placement. He denies chest, arm, jaw, or neck discomfort. His exercise tolerance is stable. He denies symptoms of CHF, palpitations, lightheadedness, dizziness, near syncope, or syncopal episodes. He denies edema or claudication issues. He denies orthopnea, PND, fever, chills, blood in urine, blood in stool, myalgia, or unexplainable fatigue. 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: No Accompanied by: None Is patient in pain?: No Allergies No Known Allergies Allergy (Verified 10/01/19 15:14) Medications Albuterol Sulfate [Ventolin Hfa] 2 puff INHALATION Q6H PRN PRN 10/30/18 [History Confirmed 08/29/19] Insulin Glargine,Hum.rec.anlog [Basaglar Kwikpen U-100] 10 unit SQ QHS 10/30/18 [History Confirmed 08/29/19] Lisinopril 40 mg PO DAILY 10/30/18 [History Confirmed 08/29/19] Omeprazole 20 mg PO BID 10/30/18 [History Confirmed 08/29/19] Pravastatin Sodium 20 mg PO DAILY 10/30/18 [History Confirmed 08/29/19] Spironolactone 25 mg PO BID 10/30/18 [History Confirmed 08/29/19] Topiramate 25 mg PO BID 10/30/18 [History Confirmed 08/29/19] Warfarin Sodium 3 mg PO MOWEFR 10/30/18 [History Confirmed 08/29/19] Warfarin Sodium 6 mg PO SUTUTHSA 10/30/18 [History Confirmed 08/29/19] bumetanide 1 mg tablet 1 - 2 mg PO BID tab 04/17/19 [History Confirmed 08/29/19] metformin ER 500 mg tablet,extended release 24 hr 2,000 mg PO DAILY 90 Days #360 tab 04/17/19 [History Confirmed 08/29/19] metoprolol tartrate 50 mg tablet 25 mg PO DAILY tab 04/17/19 [History Confirmed 08/29/19] [facility] Medical History (Updated 04/17/19 @ 12:33 by Christine Reynolds) Non-rheumatic tricuspid valve insufficiency (Chronic) Atrial fibrillation and flutter (Chronic) Secondary pulmonary arterial hypertension (Chronic) Essential (primary) hypertension (Chronic) Hyperlipidemia (Chronic) Chronic combined systolic and diastolic CHF (congestive heart failure) (Chronic) Nonischemic cardiomyopathy (Chronic) Asthma (Chronic) CVA (cerebral vascular accident) (Chronic 2010) Cholelithiasis (Chronic) Cirrhosis of liver with ascites (Chronic) Obstructive sleep apnea (Chronic) Renal adenoma (Chronic) Seizure disorder (Chronic) Stasis edema of both lower extremities (Chronic) Type 2 diabetes mellitus (Chronic) Benign brain tumor (Resolved) Syncope (Resolved 10/2018) Surgical History (Updated 08/31/19 @ 16:40 by Christine Reynolds) H/O excision of tumor of brain meninges (Resolved 2011) History of left heart catheterization (Resolved 08/31/19) History of right and left heart catheterization (Resolved) History of tonsillectomy (Resolved) Family History (Updated 04/18/19 @ 14:24 by Christine Reynolds) Daughter Heart disease valve replacement/chf Social History (Updated 10/01/19 @ 16:35 by YULIET StevensC) Smoking Status: Former smoker ROS Const Const: Negative for fatigue, weakness, body ache, fever(s) or chills ENT ENT: Negative for dizziness Cardio Chest Pain: No Palpitations: No Edema: None Muscle aches with walking: None Resp Respiratory: Negative for SOB with activity, SOB at rest, SOB orthopnea\SOB lying down or paroxysmal nocturnal dyspnea GI GI: Negative nausea, vomiting blood/hematemesis, bright, red blood in stools or black,tarry stools : Negative for hematuria or frequent nighttime urination/ nocturia Musc Musc: Negative for muscle aches/ myalgia Skin Skin: Negative non-healing lesions or rash Neuro Neuro: Negative for dizziness, lightheadedness, near syncope, syncope, orthostatic symptoms or weakness Endo Endo: Negative for fatigue Allergy Allergy/Immunology: Negative for rash Cardiology Exam Const Appearance: cooperative, healthy appearing, comfortable and no acute distress Nutritional Appearance: well nourished and overweight Orientation: alert, awake and oriented x3 Head Head: normal to inspection Ears: hearing grossly normal bilaterally Nose: external nose normal Face and Sinus: face symmetric Mouth: oral mucosae normal Eyes General: appearance normal, both eyes and all related structures Eyelids: eyelids normal EOM: EOM intact bilaterally Neck Neck: normal visual inspection and no JVD Carotids: normal carotid upstroke Chest Chest inspection: normal inspection of the chest, symmetric chest movement and normal respiratory effort; negative cough Auscultation: Bilateral: Clear to Auscultation Cardio Rate: bradycardic Rhythm: regular rhythm Heart sounds: S1 normal and S2 normal; negative rub, gallop or murmur GI GI: bowel sounds present, distended and ascites; negative tender Neuro General: alert, awake, oriented x3 and CN's II-XI intact bilaterally Skin Skin: no rashes or lesions noted Extremities Pulses: Normal: Right Posterior Tibial Pulse, Left Posterior Tibial Pulse, Right Radial Pulse, Left Radial Pulse Lower Extremity Edema: +1: Bilateral Psych Psychological: normal affect Assessment & Plan 1. Nonischemic cardiomyopathy I42.8 Plan He does not appear to be in a fluid volume overload state today. As noted above, his most recent echocardiogram showed ejection fraction of 25%. He will proceed with ICD placement. He will continue with current medical therapy. We will continue to monitor. A SDM interaction occurred at this visit using an SDM tool prior to initial implant of ICD. 2. Bradycardia R00.1 Plan He continues to have low heart rates. His beta-zeeshan has been discontinued. His EKG today shows sinus bradycardia at a rate of 51 bpm and a QTC of 465 and a QRS of 160. He will proceed with pacemaker placement. Over time, beta-zeeshan can be reinitiated for ischemic cardiomyopathy. Hopefully, over time as his heart rate improves, this also improves his overall heart function. 3. Essential (primary) hypertension I10 Plan Patient's blood pressure is well-controlled. We will continue to monitor. We will not make any medication regimen changes. 4. Hyperlipidemia E78.5 Plan He will continue current statin medication. 5. Secondary pulmonary arterial hypertension I27.21 Plan He will continue with current diuretic therapy and afterload reducing agents. Hopefully, with pacemaker placement, this also improves. Plan Detail Other Orders Orders: 12 Lead EKG performed by [facility] Today I48.91, I48.92 Additional Comments Thank you for allowing us to participate in the patients plan of care, if you have any questions please do not hesitate to call. This note was generated using a voice recognition system and there may be incorrect words, spelling or punctuation that were not noted when reviewing the office note prior to saving. Coding Level of Care Code Off vis,est,level 3 Diagnoses Nonischemic cardiomyopathy I42.8 Bradycardia R00.1 Essential (primary) hypertension I10 Hyperlipidemia E78.5 Secondary pulmonary arterial hypertension I27.21 Coding Level of Care Code Off vis,est,level 3 Diagnoses Nonischemic cardiomyopathy I42.8 Bradycardia R00.1 Essential (primary) hypertension I10 Hyperlipidemia E78.5 Secondary pulmonary arterial hypertension I27.21 Supplemental Info Supplemental Information Heart catheterization from 08/31/2019: CONCLUSIONS Normal coronary arteries RECOMMENDATIONS Medical therapy Needs heart rate support CORONARY ANGIOGRAPHY DOMINANCE: Left Dominant LEFT HEART ASSESSMENT Left Ventricular Ejection Fraction: by Echo 20 % Depressed Left Ventricular systolic function RIGHT HEART ASSESSMENT RV: 71/6 21 RA: 19/16 19 Right Heart pressures - elevated LEFT MAIN: Angiographically normal LEFT ANTERIOR DESCENDING ARTERY: Angiographically normal CIRCUMFLEX ARTERY: Angiographically normal RIGHT CORONARY ARTERY: Angiographically normal Limited echocardiogram from 09/06/2019: Interpretation Summary Normal LV size. Mild concentric left ventricular hypertrophy. The estimated ejection fraction is 25 %. The left atrium is mildly enlarged. The right atrium is severely enlarged. Pulmonary artery systolic pressure is 85 mmHg. Severe pulmonary hypertension. Severely dilated right ventricle. Severe global right ventricular systolic dysfunction. Echocardiogram from 08/13/2019: Interpretation Summary Mildly dilated left ventricle. Severe global left ventricular systolic dysfunction. The estimated ejection fraction is 20 %. Mildly dilated right ventricle. Mild global right ventricular systolic dysfunction. The left atrium is mildly enlarged. The right atrium is moderately enlarged. There is mild mitral annular calcification. Mild diffuse mitral valve thickening. Mild (1+) mitral valve insufficiency. Poor coaptation of the tricuspid valve. Moderate (2+) eccentric tricuspid valve insufficiency. Aortic sclerosis, no stenosis. Mild (1+) pulmonic valve insufficiency. Right ventricular systolic pressure estimated to be 91 mmHg. Unable to assess diastolic dysfunction. Echocardiogram from 08/16/2019 at [facility]: Conclusions: ?Technically difficult exam due to body habitus. ?Exam indication: Known pulmonary hypertension (surveillance >= 1 year) ?The left ventricle is mildly dilated. There is moderate concentric left ventricle hypertrophy. Left ventricle systolic function is mildly decreased. EF equals 44 ?5% (2D biplane) ?The right ventricle is dilated. Right ventricular systolic function is mildly decreased. ?The left atrial cavity severely dilated. ?The right atrial cavity is dilated. ?There is severe (3+?4+) tricuspid valve regurgitation caused by annular dilation. ?Estimated right ventricular systolic pressure is likely underestimated due to a week or incomplete tricuspid regurgitation signal and is, at least, 72 mm consistent with moderately severe pulmonary hypertension. Estimated right atrial pressure is 15 mmHg based on IVC assessment. May also be underestimated due to severity of TR. ?Prior EF was a visual estimate of 50% (08/02/2018). ?Bradycardic throughout exam ?Exam was compared with prior echocardiographic exam performed on 08/02/2018. LV systolic function appears less robust today. RVSP measures lower. Diagnostics Electrocardiogram 10/01/19 Echocardiogram 09/06/19 Cardiac Catheterization 08/31/19 Chest X-Ray 08/21/19 10/01/19 [id number] <Electronically signed by Hans Uriostegui> Date _ Hans Whitehead [employer]
[2019-10-01 16:12] LABS: Mucous, Urine 0 SEEN /hpf (<or=2+); Squamous Epithelial Cells - UA 0 SEEN /hpf (0-5)
[2019-10-01 17:26] LABS: Color, Urine Yellow (Yellow); Glucose, Dipstick Normal (Normal); Ketone-Dipstick Negative (Negative); Leukocyte Esterase-Dipstick 500 /ul (Negative); Nitrite-Dipstick Positive (Negative); Occult Blood-Urine 10 /ul (Negative); Protein-Dipstick 30 mg/dl (Negative); Specific Gravity, Urine 1.015 (1.002-1.030); Urine Bilirubin Dipstick Negative (Negative); Urine Clarity Cloudy (Clear); Urine Urobilinogen 8 mg/dl (Normal)
[2019-10-01 17:46] LABS: White Blood Cells 50-100 SEEN /hpf (0-5)
[2019-10-01 17:47] LABS: Bacteria RARE /hpf (None Seen); Red Blood Cells-Urine 0-5 SEEN /hpf (0-5)
[2019-10-01 17:58] LABS: International Normalized Ratio 2.8; Prothrombin Time (Protime)PT. 29.3 SECONDS (11.7-14.9)
[2019-10-01 18:00] LABS: Anion Gap 6 (5-15); BUN 40 mg/dL (7-18); BUN/Creat Ratio 35.7 RATIO (10-20); Calcium,Total 9.1 mg/dL (8.5-10.1); Chloride 109 mmol/L (98-107); Creatinine, Serum 1.12 mg/dL (0.70-1.30); EST Glomerular Filtration Rate 69 mL/min (>60); Est Glom Filt Rate - Afr Amer 84 mL/min (>60); Glucose 98 mg/dL (74-106); Potassium 4.3 mmol/L (3.5-5.1); Sodium Level 141 mmol/L (136-145)
[2019-10-01 18:02] LABS: Hematocrit 38.8 % (40-54); Mean Corp Hgb Conc 30.9 g/dL (32-36); Mean Corpuscular Hgb 26.1 pg (27.0-32.0); Mean Corpuscular Volume 84.3 fL (80-94); POSITIVE MORPHOLOGY YES; Platelet Count 164 K/mm3 (150-450); RBC Distribution Width CV 23.8 % (11.6-14.6); RBC Distribution Width SD 72.7 fl (35.1-43.9); White Blood Count 6.5 K/mm3 (4.4-11.0)
[2019-10-01 18:07] LABS: Scan Indicated on CBC? Y/N YES- FLAGS NOTED
[2019-10-01 18:48] LABS: Differential Comment SCANNED
== END ==
PROVIDERS: Internal Medicine Cardiovascular Disease; Family Provider Internal Medicine; PCP Internal Medicine; Referring Provider Internal Medicine Cardiovascular Disease; Visit Provider Internal Medicine Cardiovascular Disease
DX: I48.92 Unspecified atrial flutter (principal); I48.21 Permanent atrial fibrillation; I50.42 Chronic combined systolic (congestive) and diastolic (congestive) heart failure; I42.8 Other cardiomyopathies; E78.5 Hyperlipidemia, unspecified; I11.0 Hypertensive heart disease with heart failure
CPT/HCPCS: 36415; 80048; 81001; 85027; 85610

== ENCOUNTER 2019-10-09 21:24 | Inpatient (IN) | payer MEDICARE, OTHER, SELFPAY ==
[2019-10-01 15:14] VITALS: BMI 26.6
[2019-10-09] VITALS (7 sets, daily range): BP systolic 131–156; BP diastolic 73–93; PULSE 50–63; RESP 14–24; TEMP 36.7; O2SAT 98–100; BMI 26.4
--- NOTE | 2019-10-09 21:30 | EKG12_ITS ---
Test Reason : CP Blood Pressure : / mmHG Vent. Rate : 062 BPM Atrial Rate : 133 BPM P-R Int : 000 ms QRS Dur : 142 ms QT Int : 462 ms P-R-T Axes : 000 133 072 degrees QTc Int : 468 ms Wide QRS rhythm with occasional Premature ventricular complexes Right bundle branch block Left posterior fascicular block Bifascicular block Inferior infarct , possibly acute Lateral injury pattern ACUTE [place] / STEMI Consider right ventricular involvement in acute inferior infarct Abnormal ECG *DISCUSSED WITH CARDIOLOGY Confirmed by JAYMIE DIAS ([id number]), editorial specialist MEENU PATEL ([id number]) on 10/14/2019 9:27:53 AM Referred By: Johnson Durham Confirmed By:JAYMIE DIAS
--- NOTE | 2019-10-09 21:40 | RAD_ITS ---
STUDY: X-RAY CHEST REASON FOR EXAM: Male, 69 years old. Chest pain TECHNIQUE: Frontal view COMPARISON: August 21, 2019 FINDINGS: The lungs are clear and expanded. There is no demonstrated pleural abnormality. Cardiomegaly. Normal mediastinum and ashly. Normal visualized pulmonary arteries. Normal visualized aortic arch and descending thoracic aorta. Trace scoliosis of the thoracic spine. Normal visualized ribs, clavicles, and shoulders. There is no demonstrated abnormality of the visualized soft tissue structures of the upper abdomen. RAD/Chest 1 View (Portable) IMPRESSION: Cardiomegaly. Electronically Signed: Segundo George DO at 21:55 EST Tel [phone], Service support ,
--- NOTE | 2019-10-09 21:44 | EKG12_ITS ---
Test Reason : REPEAT Blood Pressure : / mmHG Vent. Rate : 054 BPM Atrial Rate : 031 BPM P-R Int : 000 ms QRS Dur : 140 ms QT Int : 474 ms P-R-T Axes : 000 125 084 degrees QTc Int : 449 ms Undetermined rhythm Right bundle branch block Left posterior fascicular block Bifascicular block ST elevation consider inferolateral injury or acute infarct ACUTE DE / STEMI Consider right ventricular involvement in acute inferior infarct Abnormal ECG D/W CARDIOLOGY Confirmed by JAYMIE DIAS ([id number]), news videotape editor MEENU PATEL ([id number]) on 10/14/2019 9:27:30 AM Referred By: Johnson Durham Confirmed By:JAYMIE DIAS
[2019-10-09 21:53] LABS: Absolute Lymphocyte Count 0.46 X10^3/uL (0.83-4.51); Absolute Neutrophil Count 5.5 X10^3/uL (2.0-7.7); Basophil# 0.04 X10^3/uL; Basophil% 0.6 % (0-1); Eosinophil# 0.23 X10^3/uL; Eosinophils% 3.3 % (0-5); Hematocrit 38.9 % (40-54); Lymphocyte # 0.46 X10^3/ul (4.0); Lymphocyte % 6.7 % (19-41); Mean Corp Hgb Conc 30.8 g/dL (32-36); Mean Corpuscular Hgb 25.8 pg (27.0-32.0); Mean Corpuscular Volume 83.5 fL (80-94); Mean Platelet Vol. 10.6 fl (6.2-12.0); Monocyte# 0.59 X10^3/uL; Monocyte% 8.6 % (0-10); NRBC Flagged by Analyzer 0 % (0-5); Neutrophil # 5.54 X10^3/uL (2.7-7.7); Neutrophil % 80.4 % (47-70); POSITIVE DIFFERENTIAL YES; POSITIVE MORPHOLOGY YES; Platelet Count 147 K/mm3 (150-450); RBC Distribution Width CV 22.3 % (11.6-14.6); RBC Distribution Width SD 67.7 fl (35.1-43.9); Red Blood Count 4.66 M/mm3 (4.6-6.2); White Blood Count 6.9 K/mm3 (4.4-11.0)
[2019-10-09 21:57] LABS: Differential Indicated SCAN CRITERIA MET
[2019-10-09] MEDS: Nitroglycerin Infusion 250 ML 3 MG IV (21:58)
[2019-10-09] MEDS: Enoxaparin 100 MG/ML Syringe 80 MG SC (22:01)
[2019-10-09 22:10] LABS: Anion Gap 7 (5-15); BUN 37 mg/dL (7-18); BUN/Creat Ratio 33.3 RATIO (10-20); Calcium,Total 8.9 mg/dL (8.5-10.1); Chloride 108 mmol/L (98-107); Creatinine, Serum 1.11 mg/dL (0.70-1.30); EST Glomerular Filtration Rate 70 mL/min (>60); Est Glom Filt Rate - Afr Amer 85 mL/min (>60); Estimated Creatinine Clearance 64.58 ml/min; Glucose 154 mg/dL (74-106); Potassium 4.2 mmol/L (3.5-5.1); Sodium Level 141 mmol/L (136-145)
[2019-10-09 22:14] LABS: Anisocytosis 1+; Differential Comment SCANNED; Hypochromasia 2+; Target Cells RARE
--- NOTE | 2019-10-09 22:36 | ED.VIS.CHEST ---
History of Present Illness Chief Complaint: Chest Pain Informant: EMS Narrative: Patient presenting for evaluation secondary to chest pain. Patient has a underlying history of nonischemic cardiomyopathy. He currently is awaiting placement of a pacemaker defibrillator. Patient actually was in the hospital just in August and had a diagnostic catheterization that showed no evidence of coronary artery disease and an ejection fraction of 20%. Patient states that on Tuesday he developed chest pain. He states that this lasted about 30 minutes, was not exertional, was associated with a feeling of heaviness then spontaneously resolved. Patient states that he had not had any episodes since, but today about an hour prior to arrival he developed chest pain that was similar. He reports that it was continuous, and associated with some mild shortness of breath. No exacerbating relieving factors and again he described as a tightness/heaviness. Patient was brought immediately to the emergency department by paramedics. Past Medical History - Allergies and Home Meds Allergies/Adverse Reactions: Allergies No Known Allergies Allergy (Verified 10/01/19 15:14) Past Medical History: - - Nonischemic cardiomyopathy Surgical History: tonsillectomy, - - Surgery for removal of brain tumor Smoking Status: Never smoker - Family History Maternal Family History: Family History (Last Reviewed 04/18/19 @ 14:50 by Cosme Gonzáles MD) Daughter Heart disease Family History: Reports: Stroke Paternal Family History: Family History (Last Reviewed 04/18/19 @ 14:50 by Cosme Gonzáles MD) Daughter Heart disease Family History: Reports: Heart Disease Review of Systems All systems negative except as indicated General: Denies: Chills, Fever, Sweats Eyes: Denies: Visual changes - bilaterally, Diplopia ENT: Denies: Rhinorrhea, Sore throat Cardiovascular: Reports: Chest pain Respiratory: Denies: Dyspnea, Cough, Dyspnea on exertion Gastrointestinal: Denies: Abdominal pain, Nausea, Vomiting, Diarrhea, Melena, Hematochezia Genitourinary: Denies: Dysuria, Hematuria, Frequency Musculoskeletal: Denies: Back pain, Extremity Pain Skin: Denies: Rash, Wounds Neurological: Denies: Headache, Weakness, Numbness Psych: Denies: Depression Endocrine: Denies: Polyuria Hematologic: Denies: Easy bleeding Allergy: Denies: Swelling of the mouth Physical Exam Vital Signs/Narrative: Vital Signs Temp Pulse Resp BP Pulse Ox 10/09/19 22:29 56 L 16 148/93 H 100 10/09/19 21:58 63 156/85 H 10/09/19 21:39 14 143/79 H 10/09/19 21:32 98.0 F 59 L 22 H 143/79 H 98 General: Well developed, - - Thin male no acute distress Head: Normocephalic, Atraumatic Eyes: Perrl, EOMI ENT: Moist mucous membranes, No rhinorrhea Neck: Supple, Nontender Cardiovascular: Regular rate, Regular rhythm, No murmurs Respiratory: No distress, CTA bilaterally, Chest nontender Abdomen: Soft, Nontender, Nondistended, Normal bowel sounds Back: Nontender, Normal Inspection Extremities: Nontender, No edema Skin: Normal color, No rash Neurological: Alert, Oriented x3, Cranial nerves II-XII grossly intact, Normal Strength, Normal Sensation Psychological: Normal affect, Normal Mood Diagnostic/Tx/Re-eval - EKG Initial EKG Interpretation: - - Initial EKG demonstrates atrial fibrillation with a ventricular rate of 66. Right bundle branch block with left posterior fascicular block is noted. There is ST elevation inferiorly, and ST depression laterally. Repeat EKG demonstrates similar morphology 5 minutes later. Subsequent repeat EKG 1 hour later demonstrates continued similar pathology Prior: Changed - Medical Decision Making Patient presented for evaluation secondary to chest pain. Initial EKG was concerning for the possibility of ST elevation myocardial infarction. Team was called, and I immediately spoke with the doctor of naturopathic medicine. I was able to send him the EKG pictures, and then was able to further review the patient's chart revealing that he had just had cardiac catheterization done about a month and a half ago that showed no evidence of coronary artery disease. After discussion, we decided that the patient would be likely not appropriate to go to the catheterization lab for this given his recent negative cardiac catheterization. He was given aspirin, heparin, nitroglycerin. He did end up coming back is positive on his troponin at 0.12, but has had some chronic troponin leaks in the past. Patient will be admitted to intensive care for further work-up and management. Critical care time (excluding procedures): 30-74 minutes - Critical care time was spent at the patient's bedside obtaining history, interpretative and lab tests, speaking with consulting physicians, and documenting on patient's progress ED Disposition - Plan for ED Patient: Disposition: Acute Care Hospital [facility] Diagnosis: Nonischemic cardiomyopathy, Chest pain
--- NOTE | 2019-10-09 22:48 | EKG12_ITS ---
Test Reason : POST CATH Blood Pressure : / mmHG Vent. Rate : 039 BPM Atrial Rate : 357 BPM P-R Int : 000 ms QRS Dur : 140 ms QT Int : 574 ms P-R-T Axes : 000 162 -40 degrees QTc Int : 462 ms Atrial fibrillation Right bundle branch block Left posterior fascicular block Bifascicular block Abnormal ECG When compared with ECG of 10-OCT-2019 05:53, MANUAL COMPARISON REQUIRED, DATA IS UNCONFIRMED Confirmed by ARLENE BUSTILLO, BELEN ([id number]), editor book MEENU PATEL ([id number]) on 10/14/2019 12:11:48 PM Referred By: Andrae Durham Confirmed By:ANDRAE DURHAM MD
--- NOTE | 2019-10-09 22:50 | EKG12_ITS ---
Test Reason : CP Blood Pressure : / mmHG Vent. Rate : 066 BPM Atrial Rate : 066 BPM P-R Int : 000 ms QRS Dur : 144 ms QT Int : 468 ms P-R-T Axes : 000 136 077 degrees QTc Int : 490 ms Atrial fibrillation with premature ventricular or aberrantly conducted complexes Right bundle branch block Left posterior fascicular block Bifascicular block Inferior infarct , possibly acute Lateral injury pattern ACUTE [place] / STEMI Consider right ventricular involvement in acute inferior infarct Abnormal ECG *DISCUSSED WITH CARDIOLOGY Confirmed by JAYMIE DIAS ([id number]), international editorial producer MEENU PATEL ([id number]) on 10/14/2019 9:13:47 AM Referred By: Wallace Durham Confirmed By:JAYMIE DIAS
--- NOTE | 2019-10-09 23:26 | PCM.HP.STD ---
History of Present Illness Date of Admission: 10/09/19 Chief Complaint: Chest pain The patient is a 69 year old M with PMH as below presents with chest pain that started today at around 8:30 PM. He initially presented as a STEMI alert however there was no significant ST segment elevations on his EKG and his troponin was slightly elevated 0.124 however he has not had a normal troponin because of the significantly elevated pulmonary pressures and right sided ventricular dilatation. He had a cardiac cath in August 31, 2019 with completely normal coronaries, this essentially rules out this chest pain being a STEMI. Dr. Durham was consulted by the ER and did not feel that the patient needed a cardiac cath at this time. He had similar chest pain on Tuesday which resolved on its own. However this time it did not. He denies any radiation of his chest pain. No lightheadedness or dizziness. Vital signs in the ER were unremarkable, he does have known bradycardia and his beta-zeeshan had been stopped by cardiology. There are plans to proceed with a pacemaker defibrillator placement on 25 October. Past Medical History Past Medical History (Chronic Problems): Chronic Problems (Last Reviewed 04/18/19 @ 14:50 by Cosme Gonzáles MD) Non-rheumatic tricuspid valve insufficiency (Chronic) Atrial fibrillation and flutter (Chronic) Secondary pulmonary arterial hypertension (Chronic) Essential (primary) hypertension (Chronic) Hyperlipidemia (Chronic) Chronic combined systolic and diastolic CHF (congestive heart failure) (Chronic) Nonischemic cardiomyopathy (Chronic) Medical History: Medical History (Last Reviewed 04/18/19 @ 14:50 by Cosme Gonzáles MD) Non-rheumatic tricuspid valve insufficiency (Chronic) I36.1 Atrial fibrillation and flutter (Chronic) I48.91, I48.92 Secondary pulmonary arterial hypertension (Chronic) I27.21 Essential (primary) hypertension (Chronic) I10 Hyperlipidemia (Chronic) E78.5 Chronic combined systolic and diastolic CHF (congestive heart failure) (Chronic) I50.42 Nonischemic cardiomyopathy (Chronic) I42.8 Asthma J45.909 CVA (cerebral vascular accident) Onset Date: 2010 I63.9 Cholelithiasis K80.20 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, R18.8 Obstructive sleep apnea G47.33 Renal adenoma D30.00 Seizure disorder G40.909 Stasis edema of both lower extremities I87.303 Type 2 diabetes mellitus E11.9 Benign brain tumor D33.2 Syncope Onset Date: 10/2018 R55 Allergies No Known Allergies Allergy (Verified 10/01/19 15:14) Home Medications: Ambulatory Orders Medication Instructions Recorded Albuterol Sulfate [Ventolin Hfa] 2 puff INHALATION Q6H PRN PRN 10/30/18 Insulin Glargine,Hum.rec.anlog 10 unit SQ QHS 10/30/18 [Basaglesperanza Lunsfordbharti U-100] Lisinopril 40 mg PO DAILY 10/30/18 Omeprazole 20 mg PO BID 10/30/18 Pravastatin Sodium 20 mg PO DAILY 10/30/18 Spironolactone 25 mg PO BID 10/30/18 Topiramate 25 mg PO BID 10/30/18 Warfarin Sodium 3 mg PO MOWEFR 10/30/18 Warfarin Sodium 6 mg PO SUTUTHSA 10/30/18 bumetanide 1 mg tablet 1 - 2 mg PO BID tab 04/17/19 metformin ER 500 mg 2,000 mg PO DAILY 90 Days #360 tab 04/17/19 tablet,extended release 24 hr Surgical History: Surgical History (Last Updated 08/31/19 @ 16:40 by Christine Reynolds) H/O excision of tumor of brain meninges Onset Date: 2011 Z98.890, Z86.03 History of left heart catheterization Onset Date: 08/31/19 Z98.890 History of right and left heart catheterization Z98.890 History of tonsillectomy Z90.89 Surgical History: tonsillectomy, - - Surgery for removal of brain tumor Psychiatric History: No pertinent psych hx Smoking Status: Never smoker - *Family History Maternal Family History: Family History (Last Reviewed 04/18/19 @ 14:50 by Cosme Gonzáles MD) Daughter Heart disease History Items: Stroke Paternal Family History: Family History (Last Reviewed 04/18/19 @ 14:50 by Cosme Gonzáles MD) Daughter Heart disease History Items: Heart Disease Review of Systems Constitutional: Denies: Chills, Fever, Weight Change HEENT: Denies: Head Aches, Sinus Congestion, Sinus Drainage Cardiovascular: Reports: Chest Pain. Denies: Palpitations Respiratory: Denies: Cough, Shortness of breath at rest, Sputum production Gastrointestinal: Denies: Abdominal Pain, Nausea, Vomiting Genitourinary: Denies: Dysuria Musculoskeletal: Denies: Joint Pain, Joint Tenderness Skin: Denies: Rash, Wounds Neurological: Denies: Numbness, Tingling, Focal weakness Psychiatric: Denies: Anxiety, Depression Hematologic/ Lymphatic: Denies: Easy Bruising, Easy Bleeding VTE Information - Inpt Only VTE Present on Admission: No Patient Problems: Active and Suspected Problems (Last Reviewed 04/18/19 @ 14:50 by Cosme Gonzáles MD) Chest pain (Acute) - Physical Exam Vitals/I&O's: Vital Signs Temp Pulse Resp BP Pulse Ox 98.0 F 52 L 24 H 131/73 H 99 10/09/19 21:32 10/09/19 23:07 10/09/19 23:07 10/09/19 23:07 10/09/19 23:07 Oxygen Flow Rate (L/min) 2 Oxygen Delivery Method Nasal Cannula Weight: 178 lb 12.718 oz Body Mass Index (BMI) 26.4 Finger Stick Blood Glucose 173 Intake and Output for Last 24 Hours 10/07/19 10/08/19 10/09/19 23:59 23:59 23:59 Intake Total 3.35 / 3.35 Balance 3.35 / 3.35 General: Alert, Oriented x3, Cooperative, No apparent distress HEENT: Atraumatic, PERRLA, EOMI, Normocephalic Oral: Moist Mucosa Neck: Supple, JVD, Right Lungs: Clear to auscultation, Normal air movement, No rhonchi, No wheeze, No rales, Diminished Cardiovascular: Regular rate, Regular Rhythm, Normal S1, Normal S2, No murmurs Abdomen: Soft, Non Tender, No Hepato-splenomegaly, Distended - Ascites present Extremities: Capillary Refill Less than 3 Seconds, Edema - 1+ laterally Skin: No rashes, No breakdown Neurological: Neuro grossly intact, Sensory exam intact to light touch and pain Psych/Mental Status: Normal Affect, Appropriate Laboratory Results 10/09/19 21:43: WBC 6.9, RBC 4.66, Hgb 12.0 L, Hct 38.9 L, MCV 83.5, MCH 25.8 L, MCHC 30.8 L, RDW Std Deviation 67.7 H, RDW Coeff of Yonathan 22.3 H, Plt Count 147 L, MPV 10.6, Immature Gran % (Auto) 0.400, Neut % (Auto) 80.4 H, Lymph % (Auto) 6.7 L, [place] % (Auto) 8.6, Eos % (Auto) 3.3, Baso % (Auto) 0.6, Absolute Neuts (auto) 5.5, Absolute Lymphs (auto) 0.46 L, Nucleated RBC % 0, Differential Comment SCANNED, Hypochromasia 2+, Anisocytosis 1+, Target Cells RARE 10/09/19 21:43: Sodium 141, Potassium 4.2, Chloride 108 H, Carbon Dioxide 26.0, Anion Gap 7, BUN 37 H, Creatinine 1.11, Estim Creat Clear Calc 64.58, Est GFR (MDRD) Af Amer 85, Est GFR (MDRD) Non-Af 70, BUN/Creatinine Ratio 33.3 H, Glucose 154 H, Calcium 8.9, Troponin I 0.124 H Current Medications Nitroglycerin/Dextrose () 250 mls @ 3 mls/hr IV .[id number] STA; Protocol Stop: 10/13/19 09:03 Last Titration: 10/09/19 23:05 Dose: 10 mcg/min, 6 mls/hr Documented by: Assessment/Plan All Active Problems (Last Reviewed 04/18/19 @ 14:50 by Cosme Gonzáles MD) Chest pain (Acute) Syncope (Resolved) 1. Chest pain/nonischemic cardiomyopathy/chronic systolic CHF/severe pulmonary hypertension/HTN/HLD/A. fib -He had a cardiac cath at the end of August of this year which was completely normal coronary arteries -His troponins in the past have ranged anywhere between 0.06 and 0.11 -We will trend troponins, and consult cardiology though this is not likely to be an ischemic event -Continue with Coumadin, will obtain an INR -Recent echo with an EF of 20% and significant right-sided dysfunction -We will start him on IV Lasix -Continue with pravastatin, lisinopril 2. Cirrhosis -Unsure of the etiology though his abdomen is soft and nontender does appear to have ascites present -Continue with his Aldactone 3. DM 2 -On 2000 mg of metformin daily -We will hold and continue with his home insulin as well as Accu-Cheks AC at bedtime 4. History of previous CVA/benign brain tumor -Stable -Continue with Topamax 5. GERD -Stable -Continue with PPI DVT: Coumadin Code Visit Inpatient E&M: 40161 Init Hosp L3
[2019-10-10] VITALS (47 sets, daily range): BP systolic 97–148; BP diastolic 48–120; PULSE 22–63; RESP 14–32; TEMP 36.6–37.1; O2SAT 94–100; BMI 26.3
[2019-10-10 01:23] LABS: International Normalized Ratio 3.1; Prothrombin Time (Protime)PT. 32.3 SECONDS (11.7-14.9)
--- NOTE | 2019-10-10 01:56 | EKG12_ITS ---
Test Reason : RHYTHM CHECK Blood Pressure : / mmHG Vent. Rate : 039 BPM Atrial Rate : 051 BPM P-R Int : 000 ms QRS Dur : 190 ms QT Int : 596 ms P-R-T Axes : 000 146 -51 degrees QTc Int : 479 ms Suspect arm lead reversal, interpretation assumes no reversal Idioventricular rhythm with Premature ventricular complexes or Fusion complexes Abnormal ECG When compared with ECG of 10-OCT-2019 21:03, MANUAL COMPARISON REQUIRED, DATA IS UNCONFIRMED Confirmed by ARLENE BUSTILLO, BELEN ([id number]), pictures editor MEENU PATEL ([id number]) on 10/14/2019 10:33:17 AM Referred By: Andrae Durahm Confirmed By:ANDRAE DURHAM MD
[2019-10-10 03:50] LABS: Absolute Lymphocyte Count 0.42 X10^3/uL (0.83-4.51); Absolute Neutrophil Count 4.6 X10^3/uL (2.0-7.7); Basophil# 0.03 X10^3/uL; Basophil% 0.5 % (0-1); Eosinophil# 0.24 X10^3/uL; Eosinophils% 4.1 % (0-5); Hematocrit 30.7 % (40-54); Hemoglobin 9.4 g/dL (13.0-16.5); Lymphocyte # 0.42 X10^3/ul (4.0); Lymphocyte % 7.2 % (19-41); Mean Corp Hgb Conc 30.6 g/dL (32-36); Mean Corpuscular Hgb 25.8 pg (27.0-32.0); Mean Corpuscular Volume 84.1 fL (80-94); Monocyte# 0.48 X10^3/uL; Monocyte% 8.3 % (0-10); NRBC Flagged by Analyzer 0 % (0-5); Neutrophil % 79.4 % (47-70); POSITIVE DIFFERENTIAL YES; POSITIVE MORPHOLOGY YES; Platelet Count 115 K/mm3 (150-450); RBC Distribution Width CV 21.9 % (11.6-14.6); Red Blood Count 3.65 M/mm3 (4.6-6.2); White Blood Count 5.8 K/mm3 (4.4-11.0)
[2019-10-10 03:59] LABS: Anion Gap 7 (5-15); BUN 28 mg/dL (7-18); BUN/Creat Ratio 35.4 RATIO (10-20); Calcium,Total 6.7 mg/dL (8.5-10.1); Chloride 115 mmol/L (98-107); Creatinine, Serum 0.79 mg/dL (0.70-1.30); EST Glomerular Filtration Rate 104 mL/min (>60); Est Glom Filt Rate - Afr Amer 126 mL/min (>60); Estimated Creatinine Clearance 71.68 ml/min; Glucose 203 mg/dL (74-106); Sodium Level 144 mmol/L (136-145)
[2019-10-10 04:03] LABS: Differential Indicated SCAN CRITERIA MET
[2019-10-10 04:16] LABS: Anisocytosis 1+; Differential Comment SCANNED
[2019-10-10] MEDS: 0.9% Saline Lock 10 ML Syringe IV ×2 (04:43→19:34)
--- NOTE | 2019-10-10 05:41 | EKG12_ITS ---
Test Reason : EKG CHANGE Blood Pressure : / mmHG Vent. Rate : 045 BPM Atrial Rate : 340 BPM P-R Int : 000 ms QRS Dur : 146 ms QT Int : 514 ms P-R-T Axes : 000 156 001 degrees QTc Int : 444 ms Atrial fibrillation Right bundle branch block Left posterior fascicular block Bifascicular block Abnormal ECG When compared with ECG of 10-OCT-2019 02:02, MANUAL COMPARISON REQUIRED, DATA IS UNCONFIRMED Confirmed by JAYMIE DIAS ([id number]), legal editor MEENU PATEL ([id number]) on 10/14/2019 10:53:29 AM Referred By: Johnson Durham Confirmed By:JAYMIE DIAS
[2019-10-10 06:26] LABS: Bedside Glucose 85 mg/dL (70-110)
[2019-10-10] MEDS: TICAGRELOR 90 MG TABLET 180 MG PO (06:44)
--- NOTE | 2019-10-10 06:46 | PCM.PN.HOSP ---
Patient Problems: Active and Suspected Problems (Last Reviewed 04/18/19 @ 14:50 by Cosme Gonzáles MD) Chest pain (Acute) Subjective: Patient with concern for STEMI with ongoing chest discomfort, transition to cardiac catheterization lab, awaiting finalized report but from current discussions vessel not compatible with deployment of stent, planning currently ongoing right and midsternal chest discomfort, aching, pressure, 6 out of 10 in severity, currently on nitroglycerin drip, discussed with staff and morphine will be administered. Patient denies fevers, chills, nausea, emesis, abdominal pain. Objective: Physical Examination: General: awake, alert, oriented x 3 and cooperative, laying in the ICU bed, uncomfortable appearing, ongoing chest discomfort, 6 out of 10 in severity currently. Skin: normal color, turgor, no icterus, cyanosis, status post cardiac catheterization, no obvious bleeding, bilateral lower extremity chronic venous stasis skin changes.. HEENT: AT/NC, EOMI, PERRLA, mildly dry MM. Lungs: CTA bilaterally, moderate effort, moderate decrease BL bases, no rales, ronchi or wheezing. Heart: Regular rate and rhythm; no gallop, rub audible. Abdomen: soft, NTTP, ND, normal BS, no HSM. Extremities: no cyanosis, clubbing, bilateral lower extremity chronic venous stasis changes. Neurological: patient awake, alert, oriented x 3; cognitive function intact; pupils equally reactive to light and accomodation; cranial nerves II-XII grossly normal, moving all 4 extremities although limited given bedrest with recent cardiac catheterization, strength severely global decreased given acute complaints of recent intervention. Psychiatric: affect appears uncomfortable, no acute evidence of depressive or anxiety feelings. Vitals/I&O's: Vital Signs Temp Pulse Resp BP Pulse Ox 97.9 F 41 L 17 113/67 99 10/10/19 03:00 10/10/19 06:00 10/10/19 06:00 10/10/19 06:00 10/10/19 06:00 Oxygen Flow Rate (L/min) 2 Oxygen Delivery Method Room Air Weight: 176 lb 5.917 oz Body Mass Index (BMI) 26.3 Finger Stick Blood Glucose 173 Intake and Output for Last 24 Hours 10/08/19 10/09/19 10/10/19 23:59 23:59 23:59 Intake Total 3.35 / 3.35 291.5 / 291.5 Output Total 400 / 400 Balance 3.35 / 3.35 -108.5 / -108.5 Laboratory Results 10/09/19 21:43: WBC 6.9, RBC 4.66, Hgb 12.0 L, Hct 38.9 L, MCV 83.5, MCH 25.8 L, MCHC 30.8 L, RDW Std Deviation 67.7 H, RDW Coeff of Yonathan 22.3 H, Plt Count 147 L, MPV 10.6, Immature Gran % (Auto) 0.400, Neut % (Auto) 80.4 H, Lymph % (Auto) 6.7 L, [place] % (Auto) 8.6, Eos % (Auto) 3.3, Baso % (Auto) 0.6, Absolute Neuts (auto) 5.5, Absolute Lymphs (auto) 0.46 L, Nucleated RBC % 0, Differential Comment SCANNED, Hypochromasia 2+, Anisocytosis 1+, Target Cells RARE 10/09/19 21:43: Sodium 141, Potassium 4.2, Chloride 108 H, Carbon Dioxide 26.0, Anion Gap 7, BUN 37 H, Creatinine 1.11, Estim Creat Clear Calc 64.58, Est GFR (MDRD) Af Amer 85, Est GFR (MDRD) Non-Af 70, BUN/Creatinine Ratio 33.3 H, Glucose 154 H, Calcium 8.9, Troponin I 0.124 H 10/10/19 01:05: PT 32.3 H, INR 3.1 10/10/19 01:05: Troponin I 12.400 H* 10/10/19 03:30: WBC 5.8, RBC 3.65 L, Hgb 9.4 L, Hct 30.7 L, MCV 84.1, MCH 25.8 L, MCHC 30.6 L, RDW Std Deviation 67.0 H, RDW Coeff of Yonathan 21.9 H, Plt Count 115 L, MPV 11.0, Immature Gran % (Auto) 0.500, Neut % (Auto) 79.4 H, Lymph % (Auto) 7.2 L, [place] % (Auto) 8.3, Eos % (Auto) 4.1, Baso % (Auto) 0.5, Absolute Neuts (auto) 4.6, Absolute Lymphs (auto) 0.42 L, Nucleated RBC % 0, Differential Comment SCANNED, Anisocytosis 1+ 10/10/19 03:30: Sodium 144, Potassium 3.0 L, Chloride 115 H, Carbon Dioxide 22.0, Anion Gap 7, BUN 28 H, Creatinine 0.79, Estim Creat Clear Calc 71.68, Est GFR (MDRD) Af Amer 126, Est GFR (MDRD) Non-Af 104, BUN/Creatinine Ratio 35.4 H, Glucose 203 H, Calcium 6.7 L 10/10/19 03:30: Troponin I 26.400 H* 10/10/19 06:22: POC Glucose 85 Current Medications Albuterol Sulfate (Ventolin Aerosols) 2.5 mg INHALATION Q4H PRN PRN PRN Reason: SOB &/OR WHEEZING Dextrose (D50w Syringe) 0 gm IV X1 PRN; Protocol PRN Reason: Hypoglycemia Furosemide (Lasix) 40 mg IV DAILY KATIE Glucagon () 1 mg IM .X1 PRN PRN Reason: Hypoglycemia Nitroglycerin/Dextrose () 250 mls @ 3 mls/hr IV .[id number] STA; Protocol Stop: 10/13/19 09:03 Last Titration: 10/10/19 06:00 Dose: 10 mcg/min, 6 mls/hr Documented by: Sodium Chloride () 250 mls @ 15 mls/hr IV .[id number] PRN PRN Reason: Saline Flush Insulin Glargine (Lantus (Bkc)) 10 units SC QHS [facility] Insulin Human Lispro (Humalog Kwikpen (Bkc)) 0 unit SC ACHS [facility]; Protocol Last Admin: 10/10/19 06:34 Dose: Not Given Documented by: Lisinopril (Zestril) 40 mg PO DAILY [facility] Pantoprazole Sodium (Protonix) 20 mg PO BID [facility] Pravastatin Sodium (Pravachol) 20 mg PO DAILY@2200 [facility] Sodium Chloride () 10 - 40 ml IV UD PRN PRN Reason: SALINE FLUSH Last Admin: 10/10/19 04:43 Dose: 40 ml Documented by: Spironolactone (Aldactone) 25 mg PO BID KATIE Topiramate (Topamax) 25 mg PO BID [facility] Warfarin Sodium (Coumadin (Pbkc)) 3 mg PO MoWeFr@1700 [facility] Warfarin Sodium (Coumadin (Pbkc)) 6 mg PO SuTuThSa@1700 [facility] STROKE Vital Signs/Narrative: Vital Signs Temp Pulse Resp BP Pulse Ox 10/10/19 06:00 41 L 17 113/67 99 10/10/19 05:00 41 L 19 H 108/59 L 98 10/10/19 04:00 42 L 18 97/48 L 99 10/10/19 03:05 40 L 10/10/19 03:03 46 L 18 112/61 98 10/10/19 03:00 97.9 F 46 L 18 112/61 98 Medical Necessity - Tobacco Use Smoking Status: Former smoker Tobacco Use: Cigarettes Assessment/Plan All Active Problems (Last Reviewed 04/18/19 @ 14:50 by Cosme Gonzáles MD) Chest pain (Acute) Syncope (Resolved) The patient is a 69 y/o M w/ PMHx: PAF, HTN, HLD, Combined Systolic and Diastolic CHF, Nonischemic Cardiomyopathy, Pulmonary HTN, Hx CVA, Hx Brain tumor w/ seizure disorder, Liver cirrhosis, Asthma, ALBINO, Diabetes mellitus type II who [facility] with history of onset of chest discomfort starting approximately 8:30 PM with initial EKG with ST segment elevations concerning for possible STEMI with troponin 0.124 with recent cardiac catheterization 08/31/2019 with normal-appearing coronaries per report. 1. Chest Pain w/ Acute STEMI: EKG in ED w/ A. fib with a rate of 66 with a right bundle branch block with a left posterior fascicular block with ST elevations inferiorly and ST depressions laterally with repeat EKG x2 similar, initial concern for STEMI with STEMI call with Dr. Durham evaluation of EKGs, given history of recent unremarkable cardiac catheterization deferred transition to Electronics Worker immediately, CXR w/ cardiomegaly, initial cardiac enzymes 0.124 which trended up to 12.4 and most recently 26.4. Patient admitted to the PCU, maintained on a monitored bed, continue serial cardiac enzymes and EKGs. Obtain magnesium level upon admission. Continue medical management w/ asa, coumadin, not on BB, statin. Cardiology consulted, plan for cardiac catheterization this AM. Maintain NPO, prior to planned catheterization this morning administered Brilinta load. ASA, NG, morphine. 2. Nonischemic cardiomyopathy/combined systolic and diastolic CHF w/ ? Exacerbation: Continue aspirin, Coumadin with INR trending, lisinopril, spironolactone, statin therapy, currently initiated on Lasix 40 mg IV x1. Cardiology consulted as noted with current catheterization, pending note for further recommendations. 3. Diabetes mellitus type II: Hold oral home regimen, continue home insulin regimen, ADA diet, accu checks w/ ISS. 4. Hypertension: Continue home regimen including lisinopril, spironolactone, not on beta-zeeshan therapy possibly secondary to asthma history, PRN hydralazine. 5. Chronic asthma: PRN albuterol, HOB, IS parameters. 6. Hypertension: Continue home regimen including lisinopril, spironolactone, PRN hydralazine. 7. Hyperlipidemia: Continue home statin regimen. AM FLP. 8. History CVA: Continue aspirin, Coumadin, BP regimen as noted, statin therapy, diabetic regimen. 9. History of prior brain tumor with seizure disorder: Continue home topiramate regimen. 10. PAF: Continue patient home Coumadin regimen pending cardiology evaluation and cardiac cath as noted, admission INR therapeutic at 3.1, not on rate or rhythm agent at this time from current med list. 11. Liver cirrhosis, unclear type: Hepatic profile pending. 12. ALBINO: CPAP nightly if amenable. 13. GERD: Maintain on PPI. 14. DVT prophylaxis: SCDs, Coumadin as noted with therapeutic INR upon admission. Code Visit Inpatient E&M: 10182 [facility] Hosp L3
--- NOTE | 2019-10-10 06:56 | NURSING ---
Dr. Durham called this RN this am and will be taking the patient to research laboratory specialist this am. Pt is prepped and ready to go to the research laboratory specialist at this time, and has signed consent for the procedure and it was witnessed by this RN.
--- NOTE | 2019-10-10 07:08 | NURSING ---
Pt in route to civil laboratory technician, report given to Neil and Tammy.
--- NOTE | 2019-10-10 08:45 | EKG12_ITS ---
Test Reason : RHYTHM CHECK Blood Pressure : / mmHG Vent. Rate : 039 BPM Atrial Rate : 039 BPM P-R Int : 000 ms QRS Dur : 188 ms QT Int : 600 ms P-R-T Axes : 000 147 -52 degrees QTc Int : 483 ms Suspect arm lead reversal, interpretation assumes no reversal Idioventricular rhythm with occasional Premature ventricular complexes Abnormal ECG When compared with ECG of 10-OCT-2019 08:41, MANUAL COMPARISON REQUIRED, DATA IS UNCONFIRMED Confirmed by ARLENE BUSTILLO, BELEN ([id number]), assistant film editor MEENU PATEL ([id number]) on 10/14/2019 10:33:39 AM Referred By: Andrae Durham Confirmed By:ANDRAE DURHAM MD
[2019-10-10 08:55] LABS: AST(SGOT) 66 U/L (15-37); Alanine Aminotransfer ALT/SGPT 18 U/L (16-61); Albumin, Serum 2.6 g/dL (3.2-5.0); Alkaline Phosphatase 104 U/L (45-117); Bilirubin, Direct 0.57 mg/dL (0.00-0.30); Magnesium 1.5 mg/dL (1.6-2.6); Protein, Total 5.6 g/dL (6.4-8.2)
[2019-10-10] MEDS: Pantoprazole Sodium 20 MG Tablet PO ×2 (09:21→21:40)
[2019-10-10] MEDS: Lisinopril 40 MG Tablet PO (09:21)
[2019-10-10] MEDS: Furosemide 40 MG/4 ML Vial IV (09:21)
[2019-10-10] MEDS: Topiramate 25 MG Tablet PO ×2 (09:21→21:39)
[2019-10-10] MEDS: Spironolactone 25 MG Tablet PO ×2 (09:22→21:39)
[2019-10-10] MEDS: HYDROcodone Bitartrate/Apap 5/325 Tablet PO ×2 (09:23→21:38)
--- NOTE | 2019-10-10 09:34 | CASEMGMT ---
LW/POA forms scanned into summary tab of Bob jacome is listed as pt's medical POA. SARITA Lozano
--- NOTE | 2019-10-10 09:36 | CON.PCM_ITS ---
Problem List (1) NSTEMI (non-ST elevated myocardial infarction) Status: Acute (2) Chest pain Status: Acute (3) Nonischemic cardiomyopathy Status: Chronic Reason for Consult Date of Consultation: 10/10/19 Reason for Consultation: nstemi History of Present Illness: The patient is a 69 year old M with PMH as below presents with chest pain that started yesterday at around 8:30 PM. Initially a STEMI alert was called as pt. had borderline elevation in III and AvF. However, since he had a cath in august that was -ve, was on coumadin and the ST elevations were borderline, it was decided to get serial EKG and enzymes, start the patient on NTG and heparin. He had similar chest pain on Tuesday which resolved on its own. However this time it did not. He denies any radiation of his chest pain. No lightheadedness or dizziness. Vital signs in the ER were unremarkable, he does have known bradycardia and his beta-zeeshan had been stopped by cardiology. There are plans to proceed with a pacemaker defibrillator placement on 25 October. Pt. has h/o non ischemic CM. Pt.'s CP improved significantly over night but he continued to have 2-3/10 CP. His T-I went up to 26. His ST changes on the EKG came back to baseline with no ST elevation. At this point we decided to proceed with cardiac cath despite the high INR as patient was having ongoing CP. He was evaluated prior to cath. Cath revealed very distal occlusion of two branches of Ramus. Thrombectomy was performed which improved the blood flow to some extent but there was still distal cut off. The vessel at this location was too small for stent placement. Pt.'s CP improved and we felt that it will be better to treat this occlusion medically. ROS: All systems reviewed. All else is negative. Past Medical History Allergies/Adverse Reactions: Allergies No Known Allergies Allergy (Verified 10/01/19 15:14) Home Medications: Ambulatory Orders Medication Instructions Recorded Albuterol Sulfate [Ventolin Hfa] 2 puff INHALATION Q6H PRN PRN 10/30/18 Insulin Glargine,Hum.rec.anlog 10 unit SQ QHS 10/30/18 [Basaglar Antonio U-100] Lisinopril 40 mg PO DAILY 10/30/18 Omeprazole 20 mg PO BID 10/30/18 Pravastatin Sodium 20 mg PO DAILY 10/30/18 Spironolactone 25 mg PO BID 10/30/18 Topiramate 25 mg PO BID 10/30/18 Warfarin Sodium 3 mg PO MOWEFR 10/30/18 Warfarin Sodium 6 mg PO SUTUTHSA 10/30/18 bumetanide 1 mg tablet 1 - 2 mg PO BID tab 04/17/19 metformin ER 500 mg 2,000 mg PO DAILY 90 Days #360 tab 04/17/19 tablet,extended release 24 hr Past Medical History (Chronic Problems): Chronic Problems (Last Reviewed 04/18/19 @ 14:50 by Cosme Gonzáles MD) Non-rheumatic tricuspid valve insufficiency (Chronic) Atrial fibrillation and flutter (Chronic) Secondary pulmonary arterial hypertension (Chronic) Essential (primary) hypertension (Chronic) Hyperlipidemia (Chronic) Chronic combined systolic and diastolic CHF (congestive heart failure) (Chronic) Nonischemic cardiomyopathy (Chronic) Surgical History: tonsillectomy, - - Surgery for removal of brain tumor Psychiatric History: No pertinent psych hx - *Family History Maternal Family History: Family History (Last Reviewed 04/18/19 @ 14:50 by Cosme Gonzáles MD) Daughter Heart disease History Items: Stroke Paternal Family History: Family History (Last Reviewed 04/18/19 @ 14:50 by Cosme Gonzáles MD) Daughter Heart disease History Items: Heart Disease Smoking Status: Former smoker Tobacco Use: Cigarettes Objective: Vital Signs Temp Pulse Resp BP Pulse Ox 97.9 F 39 L 18 148/120 H 98 10/10/19 03:00 10/10/19 07:00 10/10/19 07:00 10/10/19 08:30 10/10/19 07:00 Oxygen Flow Rate (L/min) 2 Oxygen Delivery Method Room Air Weight: 176 lb 5.917 oz Body Mass Index (BMI) 26.3 Finger Stick Blood Glucose 173 Intake and Output for Last 24 Hours 10/08/19 10/09/19 10/10/19 23:59 23:59 23:59 Intake Total 3.35 / 3.35 306.5 / 306.5 Output Total 400 / 400 Balance 3.35 / 3.35 -93.5 / -93.5 General: Awake, Alert, Oriented x 3 HEENT: EOMI, Sclera Non Icteric Neck: Supple, Good ROM, No Lymph Node Enlargement Lungs: Clear to auscultation Cardiovascular: Regular Rhythm, Normal S1, Normal S2, No Murmurs, No Rubs, No Gallops Abdomen: Soft Extremities: No edema Skin: No Rashes Psych/Mental Status: Appropriate 10/09/19 21:43: WBC 6.9, RBC 4.66, Hgb 12.0 L, Hct 38.9 L, MCV 83.5, MCH 25.8 L, MCHC 30.8 L, Plt Count 147 L, MPV 10.6, Immature Gran % (Auto) 0.400, Neut % (Auto) 80.4 H, Lymph % (Auto) 6.7 L, [place] % (Auto) 8.6, Eos % (Auto) 3.3, Baso % (Auto) 0.6, Absolute Neuts (auto) 5.5, Nucleated RBC % 0 10/09/19 21:43: Sodium 141, Potassium 4.2, Chloride 108 H, Carbon Dioxide 26.0, Anion Gap 7, BUN 37 H, Creatinine 1.11, Est GFR (MDRD) Af Amer 85, Est GFR (MDRD) Non-Af 70, BUN/Creatinine Ratio 33.3 H, Glucose 154 H, Calcium 8.9, Troponin I 0.124 H 10/10/19 01:05: PT 32.3 H, INR 3.1 10/10/19 01:05: Troponin I 12.400 H* 10/10/19 03:30: WBC 5.8, RBC 3.65 L, Hgb 9.4 L, Hct 30.7 L, MCV 84.1, MCH 25.8 L , MCHC 30.6 L, Plt Count 115 L, MPV 11.0, Immature Gran % (Auto) 0.500, Neut % (Auto) 79.4 H, Lymph % (Auto) 7.2 L, [place] % (Auto) 8.3, Eos % (Auto) 4.1, Baso % (Auto) 0.5, Absolute Neuts (auto) 4.6, Nucleated RBC % 0 10/10/19 03:30: Sodium 144, Potassium 3.0 L, Chloride 115 H, Carbon Dioxide 22.0, Anion Gap 7, BUN 28 H, Creatinine 0.79, Est GFR (MDRD) Af Amer 126, Est GFR (MDRD) Non-Af 104, BUN/Creatinine Ratio 35.4 H, Glucose 203 H, Calcium 6.7 L 10/10/19 03:30: Troponin I 26.400 H* 10/10/19 03:30: Magnesium 1.5 L, Total Bilirubin 0.90, Direct Bilirubin 0.57 H Rhythm: EKG: ECHO: Stress Test: Cardiac Cath: PCI: CT Surgery: Holter monitor: EPS: PPM: CXR: Chest CT Scan: Assessment/Plan 1. NSTEMI: Pt.'s CP improved significantly over night but he continued to have 2-3/10 CP. His T-I went up to 26. His ST changes on the EKG came back to baseline with no ST elevation. At this point we decided to proceed with cardiac cath despite the high INR as patient was having ongoing CP. He was evaluated prior to cath. Cath revealed very distal occlusion of two branches of Ramus. It appears embolic. The source of emboli could have been LA ppendage, LV or proximal Ramus or left main. However, angiographically there is no lesion in the proximal Ramus or left main that appears to be the source. Further workup to identify the source is not going to change the management as pt. is on therapeutic dose of coumadin anyway. Thrombectomy was performed which improved the blood flow to some extent but there was still distal cut off. The vessel at this location was too small for stent placement. Pt.'s CP improved and we felt that it will be better to treat this occlusion medically. We will keep the patient on ASA, plavix and coumadin if tolerated. DAPT ideally for atleast 2 weeks. However, pt. has what appears to be symptomatic bradycardia and low EF out of proportion to his CAD. He may end up needing an AICD prior to this period and in that case the plavix could be held if needed. 2. A fib: Rate controlled. On coumadin. Since the current event appears to be embolic in origin, it will be reasonable to continue coumadin along with DAPT. 3. Non ischemic CM: Continue current meds. No BB due to bradycardia. Awaiting AICD
[2019-10-10] MEDS: Morphine 2 MG/ML Syringe IV ×2 (09:53→19:32)
--- NOTE | 2019-10-10 10:42 | CL.I_ITS ---
Patient Name: STEPH BAUMANN Study Date: 10/10/2019 Performing: Reyes Durham MD Ht: 69 inches 175 cm : 1950 Wt: 176.6 lbs 80 kg Age: 69 Gender: male BSA: 1.96 PROCEDURE(S) PERFORMED [id number]-MBQ/COR/LV CLINICAL PROFILE AND CO-MORBIDITIES Indications: ACS <= 24 hrs Heart Failure: NYHA Class: 3, Newly Diagnosed: No, Heart Failure Type: Systolic Stress/Imaging Stress/Image Study Performed: No CONCLUSIONS CAD as described with occlusion of distal Ramus. Severe LV dysfunction. No significant or MR. Unsu ccessful thrombectomy of distal Ramus. RECOMMENDATIONS Follow up with primary director sales and marketing ASA Indefinitley Plavix for at least 2 weeks if possible and ideally for 1 year. DESCRIPTION OF PROCEDURE The patient arrived to the procedure lab. The risks and benefits of the procedure as well as a full d escription of our services here and lack of surgical backup were fully explained to the patient and/o r their significant other prior to the catheterization. The Timeout was completed, verifying the snow ect patient and procedure. The patient's procedural site was prepped and draped in the usual fashion. Local anesthetic was given subcutaneously to right radial region with Lidocaine 2%. Using a modified Seldinger technique, arterial access was obtained via the right radial artery, a 6Fr sheath was inse rted.. Left Coronary Artery selective angiography was performed in multiple views using a 5 Fr. JL3. 5 catheter. Left Ventriculography was performed in LEUNG projection using a 5 Fr. JR4. LV to AO pullbac k pressures were then recorded. Right Coronary Artery selective angiography was then performed in mul tiple views using a 5 Fr. JR 4 catheterThe images were reviewed and options discussed. A decision was then made to proceed with an Intervention, IVUS or other adjunct procedure. XB 3.5 Guide catheter was inserted and engaged into the LCA. BMW Guide wire was advanced to the 1 st OM. Hortense AP inserted Pass # 1 Hortense AP Removed Angiogram performed post Hortense The arterial s patrick was pulled and a TR Band was applied for hemostasis w/ 11ml air CORONARY ANGIOGRAPHY DOMINANCE: Left Dominant LEFT HEART ASSESSMENT Left Ventricular Ejection Fraction: by LV Gram 15-20 % Global Hypokinesis - Severe LEFT MAIN: Mild luminal irregularities LEFT ANTERIOR DESCENDING ARTERY: Mild luminal irregularities CIRCUMFLEX ARTERY: Mild luminal irregularities RAMUS: This is a long medium to large vessel that bifurcates distally into two small branches. Both t hese branches are occluded distally. This is suggestive of embolus from either the proximal Ramus or Left main or LA appendage (pt. has A fib), or LV (Pt. has an EF of 15-20%). Angiographically, there i s no evidence of a lesion in the proximal or mid Ramus or left main that is the source for the embolu s. RIGHT CORONARY ARTERY: Mild luminal irregularities VALVE FINDINGS: No Aortic Valve Stenosis No Mitral Insufficency INTERVENTION INFORMATION LESION SITE: Ramus (Distal) Lesion Complexity: High/C, chronic total occlusion: No, lesion at bifurcation: No, thrombus present: Yes, lesion length: 20 mm, culprit lesion: Yes, Previously treated lesion: No Pre Stenosis: 100 % Pre intervention NIKHIL flow: 0 PROCEDURE: Thrombectomy Post Stenosis: 100 % Post intervention NIKHIL flow: 0 COMPLICATIONS No Complications PROCEDURE MEDICATIONS Versed 1 mg IV Fentanyl 50 mcg IV Oxygen: 2 L/min via nasal cannula Heparin given IA 10/10/2019 07:41:13 Heparin 2000 unit(s) IV 10/10/2019 07:58:06 Nitro glycerin 25mg / 250ml D5W @10mcq continued from ICU 10/10/2019 07:27:50 Nitro drip as per Dr Durham ^FreeText^ 10/10/2019 08:23:32 SUMMARY OF HEMODYNAMIC DATA Time AIR REST ECG 07:31:59 AO 119/64 (94) SA 07:43:06 LV 108/14, 21 07:49:36 LV 104/13, 20 07:49:43 LV 111/12, 21 07:50:38 LVp 115/0, 24 07:51:01 AOp 115/62 (80) 07:51:06 Signed By Reyes Durham MD On 10/10/2019 10:42:01 AM Reyes Durham MD
--- NOTE | 2019-10-10 11:08 | PCA ---
received phone call from [facility] tx line, pt merrick faxed to the tx line, fax number [phone]
[2019-10-10] MEDS: Clopidogrel Bisulfate 75 MG Tablet PO (11:51)
[2019-10-10 12:01] LABS: Bedside Glucose 77 mg/dL (70-110)
--- NOTE | 2019-10-10 13:29 | DS.PCM_ITS ---
Discharge Date and Diagnosis - Problem List Patient Problems: Active and Suspected Problems (Last Reviewed 04/18/19 @ 14:50 by Cosme Gonzáles MD) Chest pain (Acute) NSTEMI (non-ST elevated myocardial infarction) (Acute 10/09/19) Date of Admission: 10/09/19 Date of Discharge: 10/10/19 - Primary Discharge Diagnosis Active and Suspected Problems (Last Reviewed 04/18/19 @ 14:50 by Cosme Gonzáles MD) 1. Chest Pain w/ ACS with occlusion distal ramus and reduced EF 15-20% with concurrent Symptomatic NSVT and Bradycardia 2. Nonischemic cardiomyopathy/combined systolic and diastolic CHF 3. Diabetes mellitus type II 4. Hypertension 5. Chronic asthma 6. Hypertension 7. Hyperlipidemia 8. History CVA 9. History of prior brain tumor with seizure disorder 10. PAF 11. Liver cirrhosis, unclear type 12. ALBINO - Secondary Discharge Diagnosis Chronic Problems (Last Reviewed 04/18/19 @ 14:50 by Cosme Gonzáles MD) Non-rheumatic tricuspid valve insufficiency (Chronic) Atrial fibrillation and flutter (Chronic) Secondary pulmonary arterial hypertension (Chronic) Essential (primary) hypertension (Chronic) Hyperlipidemia (Chronic) Chronic combined systolic and diastolic CHF (congestive heart failure) (Chronic) Nonischemic cardiomyopathy (Chronic) Hospital Course and Treatment Dr. Gonzáles Cardiology Operations: None Procedures: Cardiac catheterization, EKG Summary of Care Provided: The patient is a 69 y/o M w/ PMHx: PAF, HTN, HLD, Combined Systolic and Diastolic CHF, Nonischemic Cardiomyopathy, Pulmonary HTN, Hx CVA, Hx Brain tumor w/ seizure disorder, Liver cirrhosis, Asthma, ALBINO, Diabetes mellitus type II who presented to the [facility] ED on 10/10/19 with history of onset of chest discomfort starting approximately 8:30 PM with initial EKG with ST segment elevations concerning for possible STEMI with troponin 0.124 with recent cardiac catheterization 08/31/2019 with normal-appearing coronaries per report. EKG in ED w/ A. fib with a rate of 66 with a right bundle branch block with a left posterior fascicular block with ST elevations inferiorly and ST depressions laterally with repeat EKG x2 similar, initial concern for STEMI with STEMI call with Dr. Durham evaluation of EKGs, CXR w/ cardiomegaly, initial cardiac enzymes 0.124 which trended up to 12.4 and most recently 26.4. Patient admitted to the PCU, maintained on a monitored bed, continued serial cardiac enzymes and EKGs. Obtain magnesium level upon admission. Continue medical management w/ asa, coumadin, not on BB, statin. Brillinta load administered per Cardiology. 10/10/19 cardiac catheterization performed w/ noted CAD evident with occlusion of the distal ramus with severe LV dysfunction with EF 15-20% with unsuccessful thrombectomy attempt of the distal ramus with recommendation for indefinite aspirin as well as Plavix x2 weeks although ideally for 1 year. Patient transition following this to the ICU and on telemetry was noted to have frequent symptomatic periods of nonsustained ventricular tachycardia varied with notable bradycardia sometimes into the 20s. Given this arrhythmia patient was reeval uated by cardiology and felt appropriate for transfer for urgent AICD/pacemaker per Dr. Zamarirpa at [facility]. Cardiology discussed case with him and transfer arranged. Patient maintained in the ICU prior to this and continued on nitroglycerin drip as well as medical intervention therapy per cardiology direction. Patient Problems: Active and Suspected Problems (Last Reviewed 04/18/19 @ 14:50 by Cosme Gonzáles MD) Chest pain (Acute) NSTEMI (non-ST elevated myocardial infarction) (Acute 10/09/19) - Physical Exam Vitals/I&O's: Vital Signs Temp Pulse Resp BP Pulse Ox 98.2 F 42 L 18 123/74 H 94 10/10/19 11:15 10/10/19 13:00 10/10/19 13:00 10/10/19 13:00 10/10/19 13:00 Oxygen Flow Rate (L/min) 2 Oxygen Delivery Method Room Air Weight: 176 lb 5.917 oz Body Mass Index (BMI) 26.3 Finger Stick Blood Glucose 173 Intake and Output for Last 24 Hours 10/08/19 10/09/19 10/10/19 23:59 23:59 23:59 Intake Total 3.35 / 3.35 387.5 / 387.5 Output Total 1250 / 1250 Balance 3.35 / 3.35 -862.5 / -862.5 Laboratory Results 10/09/19 21:43: WBC 6.9, RBC 4.66, Hgb 12.0 L, Hct 38.9 L, MCV 83.5, MCH 25.8 L, MCHC 30.8 L, RDW Std Deviation 67.7 H, RDW Coeff of Yonathan 22.3 H, Plt Count 147 L, MPV 10.6, Immature Gran % (Auto) 0.400, Neut % (Auto) 80.4 H, Lymph % (Auto) 6.7 L, [place] % (Auto) 8.6, Eos % (Auto) 3.3, Baso % (Auto) 0.6, Absolute Neuts (auto) 5.5, Absolute Lymphs (auto) 0.46 L, Nucleated RBC % 0, Differential Comment SCANNED, Hypochromasia 2+, Anisocytosis 1+, Target Cells RARE 10/09/19 21:43: Sodium 141, Potassium 4.2, Chloride 108 H, Carbon Dioxide 26.0, Anion Gap 7, BUN 37 H, Creatinine 1.11, Estim Creat Clear Calc 64.58, Est GFR (MDRD) Af Amer 85, Est GFR (MDRD) Non-Af 70, BUN/Creatinine Ratio 33.3 H, Glucose 154 H, Calcium 8.9, Troponin I 0.124 H 10/10/19 01:05: PT 32.3 H, INR 3.1 10/10/19 01:05: Troponin I 12.400 H* 10/10/19 03:30: WBC 5.8, RBC 3.65 L, Hgb 9.4 L, Hct 30.7 L, MCV 84.1, MCH 25.8 L , MCHC 30.6 L, RDW Std Deviation 67.0 H, RDW Coeff of Yonathan 21.9 H, Plt Count 115 L, MPV 11.0, Immature Gran % (Auto) 0.500, Neut % (Auto) 79.4 H, Lymph % (Auto) 7.2 L, [place] % (Auto) 8.3, Eos % (Auto) 4.1, Baso % (Auto) 0.5, Absolute Neuts (auto) 4.6, Absolute Lymphs (auto) 0.42 L, Nucleated RBC % 0, Differential Comment SCANNED, Anisocytosis 1+ 10/10/19 03:30: Sodium 144, Potassium 3.0 L, Chloride 115 H, Carbon Dioxide 22.0, Anion Gap 7, BUN 28 H, Creatinine 0.79, Estim Creat Clear Calc 71.68, Est GFR (MDRD) Af Amer 126, Est GFR (MDRD) Non-Af 104, BUN/Creatinine Ratio 35.4 H, Glucose 203 H, Calcium 6.7 L 10/10/19 03:30: Troponin I 26.400 H* 10/10/19 03:30: Magnesium 1.5 L, Total Bilirubin 0.90, Direct Bilirubin 0.57 H, AST 66 H, ALT 18, Alkaline Phosphatase 104, Total Protein 5.6 L, Albumin 2.6 L, Globulin 3.0 10/10/19 06:22: POC Glucose 85 10/10/19 11:52: POC Glucose 77 Current Medications Acetaminophen (Tylenol) 650 mg PO Q6H PRN PRN PRN Reason: Non-cardiac pain (mod-severe) Hydrocodone Bitart/Acetaminophen (Hanson 5mg-325mg) 1 - 2 tablet PO Q6H PRN PRN PRN Reason: Pain Score 4-10/10 Last Admin: 10/10/19 09:23 Dose: 1 tablet Documented by: Al Hydroxide/Mg Hydroxide (Mylanta Ii) 15 - 30 ml PO Q4H PRN PRN PRN Reason: INDIGESTION Albuterol Sulfate (Ventolin Aerosols) 2.5 mg INHALATION Q4H PRN PRN PRN Reason: SOB &/OR WHEEZING Atropine Sulfate () 0.5 mg IV UD PRN PRN Reason: HR <50 bpm Clopidogrel Bisulfate (Plavix) 75 mg PO DAILY [facility] Last Admin: 10/10/19 11:51 Dose: 75 mg Documented by: Dextrose (D50w Syringe) 0 gm IV X1 PRN; Protocol PRN Reason: Hypoglycemia Furosemide (Lasix) 40 mg IV DAILY [facility] Last Admin: 10/10/19 09:21 Dose: 40 mg Documented by: Glucagon () 1 mg IM .X1 PRN PRN Reason: Hypoglycemia Heparin Sodium (Beef Lung) (Heparin 500 Unit/5 Ml (100/Ml)) 500 unit IV UD PRN PRN Reason: HEPARIN FLUSH Hydralazine HCl (Apresoline Iv) 10 mg IV Q4H PRN PRN PRN Reason: SBP > 160 Nitroglycerin/Dextrose () 250 mls @ 3 mls/hr IV .[id number] STA; Protocol Stop: 10/13/19 09:03 Last Titration: 10/10/19 13:00 Dose: 15 mcg/min, 9 mls/hr Documented by: Sodium Chloride () 250 mls @ 15 mls/hr IV .[id number] PRN PRN Reason: Saline Flush Insulin Glargine (Lantus (Bkc)) 10 units SC QHS KATIE Insulin Human Lispro (Humalog Kwikpen (Bkc)) 0 unit SC ACHS [facility]; Protocol Last Admin: 10/10/19 11:53 Dose: Not Given Documented by: Labetalol HCl (Trandate) 5 mg IV X1 PRN PRN Reason: SBP > 160 when pulling sheath Stop: 10/12/19 08:43 Lisinopril (Zestril) 40 mg PO DAILY [facility] Last Admin: 10/10/19 09:21 Dose: 40 mg Documented by: Magnesium Hydroxide (Milk Of Magnesia) 30 ml PO DAILY PRN PRN Reason: Constipation Morphine Sulfate () 1 - 2 mg IV Q4H PRN PRN PRN Reason: Pain Score 1-10/10 Last Admin: 10/10/19 09:53 Dose: 2 mg Documented by: Nitroglycerin (Nitrostat) 0.4 mg SUBLINGUAL Q5M PRN PRN Reason: CARDIAC/CHEST PAIN Pantoprazole Sodium (Protonix) 20 mg PO BID [facility] Last Admin: 10/10/19 09:21 Dose: 20 mg Documented by: Pravastatin Sodium (Pravachol) 20 mg PO DAILY@2200 [facility] Sodium Chloride () 10 - 40 ml IV UD PRN PRN Reason: SALINE FLUSH Last Admin: 10/10/19 04:43 Dose: 40 ml Documented by: Sodium Chloride () 500 ml IV BOLUS PRN PRN Reason: VASO-VAGAL PROTOCOL Spironolactone (Aldactone) 25 mg PO BID [facility] Last Admin: 10/10/19 09:22 Dose: 25 mg Documented by: Topiramate (Topamax) 25 mg PO BID [facility] Last Admin: 10/10/19 09:21 Dose: 25 mg Documented by: Warfarin Sodium (Coumadin (Pbkc)) 3 mg PO MoWeFr@1700 [facility] Warfarin Sodium (Coumadin (Pbkc)) 6 mg PO SuTuThSa@1700 [facility] Home Medications: Medications to take at Discharge Albuterol Sulfate [Ventolin Hfa] 2 puff INHALATION Q6H PRN PRN 10/30/18 Insulin Glargine,Hum.rec.anlog [Krish Alvarez U-100] 10 unit SQ QHS 10/30/18 Lisinopril 40 mg PO DAILY 10/30/18 Omeprazole 20 mg PO BID 10/30/18 Pravastatin Sodium 20 mg PO DAILY 10/30/18 Spironolactone 25 mg PO BID 10/30/18 Topiramate 25 mg PO BID 10/30/18 Warfarin Sodium 3 mg PO MOWEFR 10/30/18 Warfarin Sodium 6 mg PO SUTUTHSA 10/30/18 bumetanide 1 mg tablet 1 - 2 mg PO BID tab 04/17/19 metformin ER 500 mg tablet,extended release 24 hr 2,000 mg PO DAILY 90 Days #360 tab 04/17/19 Primary Care Physician: Pratibha Canales MD [Primary Care Provider] - Disposition: Acute care Hospital Minutes spent on discharge:: 35 Patient Condition:: Stable Medical Necessity - Tobacco Use Smoking Status: Former smoker Tobacco Use: Cigarettes Meaningful Use Info Meaningful Use Diagnoses (Choose all that apply): AMI - AMI Aspirin given w/in 24hrs of arrival?: Yes ASA at discharge?: Yes Statins at discharge?: Yes Rogelio/ARB at discharge?: Yes Beta Selwyn at discharge?: No Reason Beta Selwyn not ordered:: Drug Interaction Done w/ Acute [place] measure.: Yes Documented LVEF (%): 15 Code Visit Inpatient E&M: 19399 Disch Hosp
--- NOTE | 2019-10-10 14:22 | PCM.PN.BLA ---
Progress Note Cardiology addendum note. Patient was noted to have nonsustained ventricular tachycardia which was symptomatic. In light of his reduced ejection fraction of approximately 20% I would suggest that he be transferred for urgent consideration for an implantable defibrillator. He does have previously documented nonobstructive coronary disease and recent cardiac catheterization did not demonstrate any obstruction requiring stenting or angioplasty. The risk benefits and alternatives have been explained to him he understands and agrees to proceed. STROKE Vital Signs/Narrative: Vital Signs Temp Pulse Resp BP BP Pulse Ox 10/10/19 13:00 42 L 18 123/74 H 94 10/10/19 12:06 39 L 10/10/19 12:00 63 16 121/74 H 100 10/10/19 11:15 98.2 F 41 L 16 131/94 H 99 10/10/19 11:00 36 L 18 139/62 H 98 10/10/19 10:30 52 L 32 H 144/97 H 100
[2019-10-10 16:16] LABS: Bedside Glucose 70 mg/dL (70-110)
--- NOTE | 2019-10-10 18:13 | PCA ---
[facility] emergency department is at max capacity as well as the rest of the hospital and cannot accept patient tonight, most likely will be tomorrow 10/11.
[2019-10-10] MEDS: Pravastatin 20 MG Tablet PO (21:39)
[2019-10-10 22:11] LABS: Bedside Glucose 139 mg/dL (70-110)
[2019-10-11] VITALS (25 sets, daily range): BP systolic 92–164; BP diastolic 45–89; PULSE 37–60; RESP 12–25; TEMP 36.6–37.1; O2SAT 96–100
[2019-10-11] MEDS: Nitroglycerin Infusion 250 ML 15 MG CONT INF
[2019-10-11 04:51] LABS: Hematocrit 35.3 % (40-54); Hemoglobin 11.1 g/dL (13.0-16.5); Mean Corp Hgb Conc 31.4 g/dL (32-36); Mean Corpuscular Hgb 25.8 pg (27.0-32.0); Mean Corpuscular Volume 82.1 fL (80-94); Mean Platelet Vol. 10.4 fl (6.2-12.0); POSITIVE MORPHOLOGY YES; Platelet Count 134 K/mm3 (150-450); RBC Distribution Width CV 21.8 % (11.6-14.6); RBC Distribution Width SD 65.4 fl (35.1-43.9)
[2019-10-11 04:52] LABS: Scan Indicated on CBC? Y/N YES- FLAGS NOTED
[2019-10-11 04:58] LABS: International Normalized Ratio 2.6; Prothrombin Time (Protime)PT. 27.9 SECONDS (11.7-14.9)
[2019-10-11 05:08] LABS: ALB/GLOB Ratio 0.8 RATIO (0.9-2.4); AST(SGOT) 139 U/L (15-37); Alanine Aminotransfer ALT/SGPT 30 U/L (16-61); Albumin, Serum 3.3 g/dL (3.2-5.0); Alkaline Phosphatase 133 U/L (45-117); Anion Gap 4 (5-15); BUN 29 mg/dL (7-18); BUN/Creat Ratio 28.4 RATIO (10-20); Calcium,Total 8.8 mg/dL (8.5-10.1); Chloride 110 mmol/L (98-107); Creatinine, Serum 1.02 mg/dL (0.70-1.30); EST Glomerular Filtration Rate 77 mL/min (>60); Est Glom Filt Rate - Afr Amer 94 mL/min (>60); Estimated Creatinine Clearance 70.28 ml/min; Globulin 4.2 g/dL (2.2-4.2); Glucose 81 mg/dL (74-106); Protein, Total 7.5 g/dL (6.4-8.2); Sodium Level 140 mmol/L (136-145)
--- NOTE | 2019-10-11 05:12 | EKG12_ITS ---
Test Reason : AM EKG Blood Pressure : / mmHG Vent. Rate : 045 BPM Atrial Rate : 066 BPM P-R Int : 000 ms QRS Dur : 140 ms QT Int : 600 ms P-R-T Axes : 000 150 -69 degrees QTc Int : 519 ms Atrial fibrillation Right bundle branch block Left posterior fascicular block Bifascicular block Abnormal ECG When compared with ECG of 10-OCT-2019 08:41, MANUAL COMPARISON REQUIRED, DATA IS UNCONFIRMED Confirmed by ARLENE BUSTILLO, BELEN ([id number]), avid editor MEENU PATEL ([id number]) on 10/14/2019 12:11:25 PM Referred By: Andrae Durham Confirmed By:ANDRAE DURHAM MD
[2019-10-11 05:29] LABS: Differential Comment SCANNED
--- NOTE | 2019-10-11 07:03 | PN_ITS ---
Patient Problems: Active and Suspected Problems (Last Reviewed 04/18/19 @ 14:50 by Cosme Gonzáles MD) Chest pain (Acute) NSTEMI (non-ST elevated myocardial infarction) (Acute 10/09/19) Subjective: Patient overnight with ongoing chest discomfort with increase of his nitroglycerin drip with necessity to transition to ICU status. Since then he notes he has been chest pain-free and is of increased spirits. This morning he talked his very early and has an appetite and understands that he is awaiting an [facility] bed. He denies any current dyspnea as well. Patient right wrist stable, no bleeding. Patient denies fevers, chills, nausea, emesis, abdominal pain. Objective: Physical Examination: General: awake, alert, oriented x 3 and cooperative, laying in the ICU bed, improved appearance, no current chest discomfort. uncomfortable appearing, ongoing chest discomfort, 6 out of 10 in severity currently. Skin: normal color, turgor, no icterus, cyanosis, status post cardiac catheterization, no obvious bleeding, bilateral lower extremity chronic venous stasis skin changes.. HEENT: AT/NC, EOMI, PERRLA, improved MMM. Lungs: CTA bilaterally, moderate effort, moderate decrease BL bases, no rales, ronchi or wheezing. Heart: Regular rate and rhythm; no gallop, rub audible, notable SM now present. Abdomen: soft, NTTP, ND, normal BS, no HSM. Extremities: no cyanosis, clubbing, bilateral lower extremity chronic venous stasis changes. Neurological: patient awake, alert, oriented x 3; cognitive function intact; pupils equally reactive to light and accomodation; cranial nerves II-XII grossly normal, moving all 4 extremities, strength improved, mildly to moderately globally decreased given acute complaints. Psychiatric: affect appears improved, smiling, not in pain, no acute evidence of depressive or anxiety feelings. Vitals/I&O's: Vital Signs Temp Pulse Resp BP Pulse Ox 98.1 F 53 L 18 108/51 L 100 10/11/19 03:00 10/11/19 06:00 10/11/19 06:00 10/11/19 06:00 10/11/19 06:00 Oxygen Flow Rate (L/min) 2 Oxygen Delivery Method Room Air Weight: 165 lb 9.074 oz Body Mass Index (BMI) 26.3 Finger Stick Blood Glucose 173 Intake and Output for Last 24 Hours 10/09/19 10/10/19 10/11/19 23:59 23:59 23:59 Intake Total 3.35 / 3.35 603.50 / 722.25 208.75 / 208.75 Output Total 1650 / 1950 400 / 400 Balance 3.35 / 3.35 -1046.50 / -1227.75 -191.25 / -191.25 Laboratory Results 10/10/19 03:30: Magnesium 1.5 L, Total Bilirubin 0.90, Direct Bilirubin 0.57 H, AST 66 H, ALT 18, Alkaline Phosphatase 104, Total Protein 5.6 L, Albumin 2.6 L, Globulin 3.0 10/10/19 11:52: POC Glucose 77 10/10/19 16:12: POC Glucose 70 10/10/19 21:49: POC Glucose 139 H 10/11/19 04:40: PT 27.9 H, INR 2.6 10/11/19 04:40: WBC 7.0, RBC 4.30 L, Hgb 11.1 L, Hct 35.3 L, MCV 82.1, MCH 25.8 L, MCHC 31.4 L, RDW Std Deviation 65.4 H, RDW Coeff of Yonathan 21.8 H, Plt Count 134 L, MPV 10.4, Differential Comment SCANNED 10/11/19 04:40: Sodium 140, Potassium 4.0, Chloride 110 H, Carbon Dioxide 26.0, Anion Gap 4 L, BUN 29 H, Creatinine 1.02, Estim Creat Clear Calc 70.28, Est GFR (MDRD) Af Amer 94, Est GFR (MDRD) Non-Af 77, BUN/Creatinine Ratio 28.4 H, Glucose 81, Calcium 8.8, Total Bilirubin 1.70 H, AST 139 H, ALT 30, Alkaline Phosphatase 133 H, Total Protein 7.5, Albumin 3.3, Globulin 4.2, Albumin/Globulin Ratio 0.8 L Current Medications Acetaminophen (Tylenol) 650 mg PO Q6H PRN PRN PRN Reason: Non-cardiac pain (mod-severe) Hydrocodone Bitart/Acetaminophen (Nazlini 5mg-325mg) 1 - 2 tablet PO Q6H PRN PRN PRN Reason: Pain Score 4-10/10 Last Admin: 12/04/19 21:38 Dose: 2 tablet Documented by: Al Hydroxide/Mg Hydroxide (Mylanta Ii) 15 - 30 ml PO Q4H PRN PRN PRN Reason: INDIGESTION Albuterol Sulfate (Ventolin Aerosols) 2.5 mg INHALATION Q4H PRN PRN PRN Reason: SOB &/OR WHEEZING Atropine Sulfate () 0.5 mg IV UD PRN PRN Reason: HR <50 bpm Clopidogrel Bisulfate (Plavix) 75 mg PO DAILY [facility] Last Admin: 10/10/19 11:51 Dose: 75 mg Documented by: Dextrose (D50w Syringe) 0 gm IV X1 PRN; Protocol PRN Reason: Hypoglycemia Furosemide (Lasix) 40 mg IV DAILY [facility] Last Admin: 10/10/19 09:21 Dose: 40 mg Documented by: Glucagon () 1 mg IM .X1 PRN PRN Reason: Hypoglycemia Heparin Sodium (Beef Lung) (Heparin 500 Unit/5 Ml (100/Ml)) 500 unit IV UD PRN PRN Reason: HEPARIN FLUSH Hydralazine HCl (Apresoline Iv) 10 mg IV Q4H PRN PRN PRN Reason: SBP > 160 Nitroglycerin/Dextrose () 250 mls @ 3 mls/hr IV .[id number] STA; Protocol Stop: 10/13/19 09:03 Last Titration: 10/11/19 00:00 Dose: Infused Documented by: Sodium Chloride () 250 mls @ 15 mls/hr IV .[id number] PRN PRN Reason: Saline Flush Nitroglycerin/Dextrose () 250 mls @ 3 mls/hr CONT INF .[id number] [facility]; Protocol Last Titration: 10/11/19 06:00 Dose: 25 mcg/min, 15 mls/hr Documented by: Insulin Glargine (Lantus (Bkc)) 10 units SC QHS KATIE Last Admin: 10/10/19 21:50 Dose: 10 u Documented by: Insulin Human Lispro (Humalog Kwikpen (Bkc)) 0 unit SC ACHS [facility]; Protocol Last Admin: 10/10/19 21:50 Dose: Not Given Documented by: Labetalol HCl (Trandate) 5 mg IV X1 PRN PRN Reason: SBP > 160 when pulling sheath Stop: 10/12/19 08:43 Lisinopril (Zestril) 40 mg PO DAILY [facility] Last Admin: 10/10/19 09:21 Dose: 40 mg Documented by: Magnesium Hydroxide (Milk Of Magnesia) 30 ml PO DAILY PRN PRN Reason: Constipation Morphine Sulfate () 1 - 2 mg IV Q4H PRN PRN PRN Reason: Pain Score 1-10/10 Last Admin: 10/10/19 19:32 Dose: 2 mg Documented by: Nitroglycerin (Nitrostat) 0.4 mg SUBLINGUAL Q5M PRN PRN Reason: CARDIAC/CHEST PAIN Pantoprazole Sodium (Protonix) 20 mg PO BID [facility] Last Admin: 10/10/19 21:40 Dose: 20 mg Documented by: Pravastatin Sodium (Pravachol) 20 mg PO DAILY@2200 [facility] Last Admin: 10/10/19 21:39 Dose: 20 mg Documented by: Sodium Chloride () 10 - 40 ml IV UD PRN PRN Reason: SALINE FLUSH Last Admin: 10/10/19 19:34 Dose: 20 ml Documented by: Sodium Chloride () 500 ml IV BOLUS PRN PRN Reason: VASO-VAGAL PROTOCOL Spironolactone (Aldactone) 25 mg PO BID [facility] Last Admin: 10/10/19 21:39 Dose: 25 mg Documented by: Topiramate (Topamax) 25 mg PO BID [facility] Last Admin: 10/10/19 21:39 Dose: 25 mg Documented by: Warfarin Sodium (Coumadin (Pbkc)) 3 mg PO MoWeFr@1700 [facility] Last Admin: 10/10/19 16:34 Dose: Not Given Documented by: Warfarin Sodium (Coumadin (Pbkc)) 6 mg PO SuTuThSa@1700 [facility] STROKE Vital Signs/Narrative: Vital Signs Pulse Resp BP Pulse Ox 10/11/19 06:00 53 L 18 108/51 L 100 10/11/19 05:00 42 L 18 105/48 L 100 10/11/19 04:00 38 L 19 H 105/48 L 97 Medical Necessity - Tobacco Use Smoking Status: Former smoker Tobacco Use: Cigarettes Assessment/Plan All Active Problems (Last Reviewed 04/18/19 @ 14:50 by Cosme Gonzáles MD) History of percutaneous coronary intervention (Resolved 10/10/19) Chest pain (Acute) NSTEMI (non-ST elevated myocardial infarction) (Acute 10/09/19) Syncope (Resolved) The patient is a 69 y/o M w/ PMHx: PAF, HTN, HLD, Combined Systolic and Diastolic CHF, Nonischemic Cardiomyopathy, Pulmonary HTN, Hx CVA, Hx Brain tumor w/ seizure disorder, Liver cirrhosis, Asthma, ALBINO, Diabetes mellitus type II who presents to the [facility] ED on 10/10/19 with history of onset of chest discomfort starting approximately 8:30 PM with initial EKG with ST segment elevations concerning for possible STEMI with troponin 0.124 with recent cardiac catheterization 08/31/2019 with normal-appearing coronaries per report. 1. Chest Pain w/ ACS w/ Symptomatic Bradycardia and NSVT: EKG in ED w/ A. fib with a rate of 66 with a right bundle branch block with a left posterior fasc icular block with ST elevations inferiorly and ST depressions laterally with repeat EKG x2 similar, initial concern for STEMI with STEMI call with Dr. Durham evaluation of EKGs, given history of recent unremarkable cardiac catheterization deferred transition to [facility] immediately, CXR w/ cardiomegaly, initial cardiac enzymes 0.124 which trended up to 12.4 and most recently 26.4. Patient admitted to the PCU, maintained on a monitored bed, continue serial cardiac enzymes and EKGs. Obtain magnesium level upon admission. Continue medical management w/ asa, coumadin, not on BB, statin. Brillinta load administered per Cardiology. 10/10/19 cardiac catheterization performed w/ noted CAD evident with occlusion of the distal ramus with severe LV dysfunction with EF 15-20% with unsuccessful thrombectomy attempt of the distal ramus with recommendation for indefinite aspirin as well as Plavix x2 weeks although ideally for 1 year. Patient transition following this to the ICU and on telemetry was noted to have frequent symptomatic periods of nonsustained ventricular tachycardia varied with notable bradycardia sometimes into the 20s. Given this arrhythmia patient was reevaluated by cardiology and felt appropriate for transfer for urgent AICD/pacemaker per Dr. Zamarripa at [facility], still awaiting bed, transfer already arranged, should transition today, 10/11/19. 2. Nonischemic cardiomyopathy/combined systolic and diastolic CHF w/ ? Exacerbation: Continue aspirin, Coumadin with INR trending, lisinopril, spironolactone, statin therapy, on admit administered Lasix 40 mg IV x1. Cardiology consulted, following. 3. Diabetes mellitus type II: Hold oral home regimen, continue home insulin regimen, ADA diet, accu checks w/ ISS. 4. Hypertension: Continue home regimen including lisinopril, spironolactone, not on beta-zeeshan therapy possibly secondary to asthma history, PRN hydralazine. 5. Chronic asthma: PRN albuterol, HOB, IS parameters. 6. Hypertension: Continue home regimen including lisinopril, spironolactone, PRN hydralazine. 7. Hyperlipidemia: Continue home statin regimen. AM FLP pending. 8. History CVA: Continue aspirin, Coumadin, BP regimen as noted, statin therapy, diabetic regimen. 9. History of prior brain tumor with seizure disorder: Continue home topiramate regimen. 10. PAF: Continue patient home Coumadin regimen pending cardiology evaluation and cardiac cath as noted, admission INR therapeutic at 3.1, not on rate or rhythm agent at this time from current med list. 11. Liver cirrhosis, unclear type: Hepatic profile w/ total bilirubin 1.70, AST/ALT 139/30, alk phos 133. 12. ALBINO: CPAP nightly if amenable. 13. GERD: Maintain on PPI. 14. DVT prophylaxis: SCDs, Coumadin as noted with therapeutic INR upon admission, 10/11/2019 INR 2.6. Code Visit Inpatient E&M: 29424 Subs Hosp L2
--- NOTE | 2019-10-11 07:08 | ECHOD_ITS ---
Reason For Study: CAD Procedure This was a 2D Doppler, Color Flow transthoracic echocardiogram. Exam performed portable in ICU/CCU. Left Ventricle Mildly dilated left ventricle. Concentric left ventricular hypertrophy. The estimated ejection fraction is 35 %. There is evidence of diastolic dysfunction. Hypokinesis of the anterior and inferior waddell. Right Ventricle Severely dilated right ventricle. Moderately severe global right ventricular systolic dysfunction. Atria The left atrium is moderately enlarged. The right atrium is mildly enlarged. No doppler evidence for ASD. Mitral Valve There is no mitral valve stenosis. Trivial mitral valve insufficiency. Tricuspid Valve There is no tricuspid stenosis. Mild tricuspid valve insufficiency. Pulmonary artery systolic pressure is 65 mmHg. Aortic Valve Trisinus/trileaflet aortic valve. There is no aortic stenosis. No aortic valve insufficiency. Pulmonic Valve There is no pulmonic valvular stenosis. Trivial pulmonic valve insufficiency identified. Great Vessels Normal aortic root. Pericardium/Pleural No pericardial effusion. MMode/2D Measurements & Calculations LVIDd: 5.9 cm IVSd: 1.3 cm Ao root diam: 3.0 cm LVIDs: 5.0 cm LVPWd: 1.3 cm RVDd: 5.6 cm FS: 15.0 % LAV(MOD-bp): 98.9 ml LA A4 area: 23.7 cm2 LA dimension(2D): 5.1 cm LAV(MOD-bp) Indexed: 52.0 ml/m2 LAV(MOD-sp2): 110.2 ml LAV(MOD-sp4): 80.7 ml RA A4 area: 31.9 cm2 Doppler Measurements & Calculations MV E max yeison: 74.9 cm/sec Ao V2 max: 126.7 cm/sec LV V1 max: 104.3 cm/sec Ao max P.4 mmHg LV V1 max P.4 mmHg PA V2 max: 120.7 cm/sec TR max yeison: 362.2 cm/sec TR max P.5 mmHg Interpretation Summary The estimated ejection fraction is 35 %. Hypokinesis of the anterior and inferior waddell There is evidence of diastolic dysfunction. Moderately severe global right ventricular systolic dysfunction. Severely dilated right ventricle. Mildly dilated left ventricle. Concentric left ventricular hypertrophy. The left atrium is moderately enlarged. The right atrium is mildly enlarged. Trivial mitral valve insufficiency. Mild tricuspid valve insufficiency. Pulmonary artery systolic pressure is 65 mmHg. Trivial pulmonic valve insufficiency identified. Ordering Physician: Mary Leonard Referring Physician: Pratibha Canales M.D. Performed By: Leni Abernathy RDCS, RVT
[2019-10-11] MEDS: Topiramate 25 MG Tablet PO ×2 (07:44→21:30)
[2019-10-11] MEDS: Clopidogrel Bisulfate 75 MG Tablet PO (07:45)
[2019-10-11] MEDS: Pantoprazole Sodium 20 MG Tablet PO ×2 (07:45→21:30)
[2019-10-11] MEDS: Furosemide 40 MG/4 ML Vial IV (07:46)
[2019-10-11] MEDS: Spironolactone 25 MG Tablet PO ×2 (07:47→21:30)
[2019-10-11] MEDS: 0.9% Saline Lock 10 ML Syringe IV (08:04)
--- NOTE | 2019-10-11 10:00 | EKG12_ITS ---
Test Reason : EKGCHANGE Blood Pressure : / mmHG Vent. Rate : 048 BPM Atrial Rate : 056 BPM P-R Int : 000 ms QRS Dur : 134 ms QT Int : 496 ms P-R-T Axes : 000 149 -12 degrees QTc Int : 443 ms Atrial fibrillation with premature ventricular or aberrantly conducted complexes Right bundle branch block Left posterior fascicular block Bifascicular block Anterior infarct , age undetermined Abnormal ECG When compared with ECG of 31-JAN-2019 12:31, Previous ECG has undetermined rhythm, needs review (RBBB and left posterior fascicular block) is now Present Confirmed by ARLENE BUSTILLO, BELEN ([id number]), sports editor MEENU PATEL ([id number]) on 10/14/2019 12:11:55 PM Referred By: Andrae Durham Confirmed By:ANDRAE DURHAM MD
[2019-10-11 10:15] LABS: Cholesterol 84 mg/dL (200); High Density Lipoprotein 24 mg/dL; Triglycerides 57 mg/dL; Very Low Density Lipoprotein 11 mg/dL (5-40)
[2019-10-11] MEDS: Lisinopril 40 MG Tablet PO (12:17)
--- NOTE | 2019-10-11 14:50 | NURSING ---
report given Mckenna RN, [facility]
--- NOTE | 2019-10-11 14:59 | NURSING ---
received report from Lazara WINSTON assuming care of patient at 1500
[2019-10-11 17:15] LABS: Bedside Glucose 120 mg/dL (70-110)
[2019-10-11 17:45] LABS: Bedside Glucose 134 mg/dL (70-110)
--- NOTE | 2019-10-11 19:22 | NURSING ---
[facility] called unit to update that EMS will not arrive here until approximately 2099.
--- NOTE | 2019-10-11 21:20 | NURSING ---
called [facility] for update on arrival time, stated transport was enroute to [facility], arrival approximately 15-20 minute.
[2019-10-11] MEDS: Pravastatin 20 MG Tablet PO (21:30)
[2019-10-11 21:41] LABS: Bedside Glucose 111 mg/dL (70-110)
--- NOTE | 2019-10-11 22:00 | NURSING ---
[facility] arrived for [facility]
== END 2019-10-11 22:15 | disposition short-term general hospital (02) | DRG 251 ==
LOC: ED 21:40 → ICU 10-10 01:27
PROVIDERS: Admitting Provider Family Medicine; Emergency Provider Emergency Medicine; Family Provider Internal Medicine; PCP Internal Medicine; Referring Provider Specialist; Visit Provider Family Medicine
DX: I21.4 Non-ST elevation (NSTEMI) myocardial infarction (principal); R18.8 Other ascites; I42.8 Other cardiomyopathies; I47.2 Ventricular tachycardia; I50.42 Chronic combined systolic (congestive) and diastolic (congestive) heart failure; K74.60 Unspecified cirrhosis of liver; I25.10 Atherosclerotic heart disease of native coronary artery without angina pectoris; E11.9 Type 2 diabetes mellitus without complications; J45.909 Unspecified asthma, uncomplicated; E78.5 Hyperlipidemia, unspecified; G40.909 Epilepsy, unspecified, not intractable, without status epilepticus; I11.0 Hypertensive heart disease with heart failure; R00.1 Bradycardia, unspecified; Z79.4 Long term (current) use of insulin; Z87.891 Personal history of nicotine dependence; Z79.01 Long term (current) use of anticoagulants; Z86.73 Personal history of transient ischemic attack (TIA), and cerebral infarction without residual deficits; G47.33 Obstructive sleep apnea (adult) (pediatric); R07.9 Chest pain, unspecified; I36.1 Nonrheumatic tricuspid (valve) insufficiency
CPT/HCPCS: 71045; 80048; 80053; 80061; 80076; 82962; 83735; 84484; 85025; 85027; 85610; 93005; 93306; 93458; 99152; 99153; 99285; J7030; J7040; A4216; C1757; C1769; C1887; C1894; J1940; Q9967

== ENCOUNTER 2019-12-02 10:23 | Emergency (ER) | payer MEDICARE, OTHER, SELFPAY ==
[2019-11-16 08:12] VITALS: BMI 24.0
[2019-12-02 10:29] VITALS: BP 135/79; PULSE 86; RESP 24; TEMP 36.6; O2SAT 99; BMI 25.9
--- NOTE | 2019-12-02 10:50 | RAD_ITS ---
STUDY: X-RAY CHEST REASON FOR EXAM: Male, 69 years old. NEAR SYNCOPE TECHNIQUE: AP COMPARISON: 10/09/2019 FINDINGS: EKG leads project over the chest. Three lead cardiac conduction device is seen via the left subclavian vein with lead tips projecting over the right atrium and right ventricle, respectively, with left atrial lead projecting over the left atrium/posterior cardiac border. The lungs are clear and expanded. There is no demonstrated pleural abnormality. There is mild cardiac enlargement. Normal mediastinum and ashly. Normal visualized pulmonary arteries. Normal visualized aortic arch and descending thoracic aorta. Normal visualized thoracic spine. Normal visualized ribs, clavicles, and shoulders. There is no demonstrated abnormality of the visualized soft tissue structures of the upper abdomen. RAD/Chest 1 View (Portable) IMPRESSION: Nonacute portable x-ray examination of the chest. Electronically Signed: Scott Presley MD (Brooks) at 12:08 EST , Service support ,
--- NOTE | 2019-12-02 10:50 | EKG12_ITS ---
Test Reason : DIZZINESS Blood Pressure : / mmHG Vent. Rate : 082 BPM Atrial Rate : 073 BPM P-R Int : 000 ms QRS Dur : 186 ms QT Int : 496 ms P-R-T Axes : 084 214 098 degrees QTc Int : 579 ms Ventricular-paced rhythm with occasional AV dual-paced complexes and with frequent Premature ventricu lar complexes Biventricular pacemaker detected Abnormal ECG Confirmed by TASIA BUSTILLO, JONNATHAN ([id number]), editor publications ISREAL HORTON ([id number]) on 12/05/2019 1:35:35 PM Referred By: SHAGGY Confirmed By:JONNATHAN DOZIER MD
--- NOTE | 2019-12-02 10:53 | ED.VIS.GEN ---
History of Present Illness Chief Complaint: Dizziness Onset: Today Narrative: Patient states that he had been up for a while this morning and ate breakfast. He was sitting in his chair when he needed to urinate and stood up. He states he got very lightheaded. He states he then noticed that his hands were tingling in his arms hurt. He sat back down and called 911. He states he was lightheaded like this in October when he required placement of a pacemaker. He states since arriving here he feels pretty good. Past Medical History - Allergies and Home Meds Allergies/Adverse Reactions: Allergies No Known Allergies Allergy (Verified 12/02/19 10:32) Primary Care Physician: Pratibha Canales MD [Primary Care Provider] - Surgical History: tonsillectomy, - - Surgery for removal of brain tumor Smoking Status: Former smoker - Family History Maternal Family History: Family History (Last Reviewed 11/16/19 @ 11:02 by Cosme Gonzáles MD) Daughter Heart disease Family History: Reports: Stroke Paternal Family History: Family History (Last Reviewed 11/16/19 @ 11:02 by Cosme Gonzáles MD) Daughter Heart disease Family History: Reports: Heart Disease Review of Systems General: Denies: Chills, Fever, Sweats Eyes: Denies: Visual changes - bilaterally, Diplopia ENT: Denies: Rhinorrhea, Sore throat Cardiovascular: Denies: Chest pain, Palpitations Respiratory: Denies: Dyspnea, Cough, Dyspnea on exertion Gastrointestinal: Denies: Abdominal pain, Nausea, Vomiting, Diarrhea, Melena, Hematochezia Genitourinary: Denies: Dysuria, Hematuria, Frequency Musculoskeletal: Denies: Back pain, Extremity Pain Skin: Denies: Rash, Wounds Neurological: Denies: Headache, Weakness, Numbness Physical Exam Vital Signs/Narrative: Vital Signs Temp Pulse Resp BP Pulse Ox 12/02/19 10:29 97.8 F 86 24 H 135/79 H 99 Inital Vital Signs reviewed: Yes General: Well nourished, Well developed, No Acute Distress Head: Normocephalic, Atraumatic Eyes: Perrl, EOMI ENT: Moist mucous membranes, No rhinorrhea Neck: Supple, Nontender Cardiovascular: Regular rate, Regular rhythm, No murmurs Respiratory: No distress, CTA bilaterally, Chest nontender Abdomen: Soft, Nontender, Nondistended, Normal bowel sounds Back: Nontender, Normal Inspection Extremities: Nontender, No edema Skin: Normal color, No rash Neurological: Alert, Oriented x3, Cranial nerves II-XII grossly intact, Normal Strength, Normal Sensation Psychological: Normal affect, Normal Mood Diagnostic/Tx/Re-eval - Medical Decision Making Chest x-ray shows no acute findings. EKG is paced with PVC. First troponin 0 0.05-second troponin 0 0.05. The patient has remained asymptomatic. He has been up walking around in the room. He will be discharged home return if worsening or concerns. He has a cardiology appointment in 3 days. ED Disposition - Plan for ED Patient: Disposition: Home or Assisted Living Diagnosis: Near syncope Instructions: NEAR SYNCOPE, Unknown Referrals: Cosme Gonzáles MD [STAFF PHYSICIAN] - (as scheduled) Pratibha Canales MD [Primary Care Provider] - As soon as possible
[2019-12-02 11:01] LABS: Absolute Lymphocyte Count 0.48 X10^3/uL (0.83-4.51); Absolute Neutrophil Count 5.8 X10^3/uL (2.0-7.7); Basophil# 0.06 X10^3/uL; Basophil% 0.8 % (0-1); Eosinophils% 4.1 % (0-5); Hematocrit 41.5 % (40-54); Hemoglobin 12.6 g/dL (13.0-16.5); Lymphocyte # 0.48 X10^3/ul (4.0); Lymphocyte % 6.6 % (19-41); Mean Corp Hgb Conc 30.4 g/dL (32-36); Mean Corpuscular Hgb 26.1 pg (27.0-32.0); Mean Corpuscular Volume 86.1 fL (80-94); Mean Platelet Vol. 11.4 fl (6.2-12.0); Monocyte# 0.61 X10^3/uL; Monocyte% 8.4 % (0-10); NRBC Flagged by Analyzer 0 % (0-5); Neutrophil # 5.79 X10^3/uL (2.7-7.7); Neutrophil % 79.7 % (47-70); POSITIVE DIFFERENTIAL YES; Platelet Count 159 K/mm3 (150-450); RBC Distribution Width CV 19.3 % (11.6-14.6); RBC Distribution Width SD 60.4 fl (35.1-43.9); Red Blood Count 4.82 M/mm3 (4.6-6.2); White Blood Count 7.3 K/mm3 (4.4-11.0)
[2019-12-02 11:04] LABS: Differential Indicated SCAN CRITERIA MET
--- NOTE | 2019-12-02 11:05 | ED.RN ---
PT WAS STANDING AT THE BEDSIDE VOIDING IN THE URINAL HE DOES AT HOME AND PROCEEDED TO VOID ON THE FLOOR AND HAVE A BM ON THE FLOOR AND STEPPED IN IT. PT STATES HE NORMALLY DOESN'T DO THAT. PT WAS STANDING STEADY WITH NO SIGN OF DISTRESS. PT WAS GIVEN WIPES TO CLEAN HIMSELF UP. BLANKETS PLACED OVER THE MESS TO ALLOW THE PT TO BE CLEANED UP. PT VERBALIZED UNDERSTANDING.
[2019-12-02 11:16] LABS: Anion Gap 3 (5-15); BUN 27 mg/dL (7-18); BUN/Creat Ratio 23.9 RATIO (10-20); Calcium,Total 9.3 mg/dL (8.5-10.1); Chloride 109 mmol/L (98-107); Creatinine, Serum 1.13 mg/dL (0.70-1.30); EST Glomerular Filtration Rate 69 mL/min (>60); Est Glom Filt Rate - Afr Amer 83 mL/min (>60); Estimated Creatinine Clearance 63.44 ml/min; Glucose 173 mg/dL (74-106); Potassium 4.3 mmol/L (3.5-5.1); Sodium Level 139 mmol/L (136-145)
[2019-12-02 12:24] VITALS: PULSE 78; RESP 18; O2SAT 99
[2019-12-02 13:42] VITALS: BP 118/72; PULSE 70; RESP 18
[2019-12-02 14:32] VITALS: BP 139/86; PULSE 68; RESP 18; O2SAT 99
== END 2019-12-02 14:33 | disposition home or self-care (01) ==
PROVIDERS: Emergency Provider Emergency Medicine; PCP Internal Medicine
DX: R55 Syncope and collapse (principal); I49.3 Ventricular premature depolarization; R20.2 Paresthesia of skin; Z79.01 Long term (current) use of anticoagulants; Z79.899 Other long term (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; Z87.891 Personal history of nicotine dependence; Z95.0 Presence of cardiac pacemaker
CPT/HCPCS: 71045; 80048; 84484; 85025; 93005; 99285; A4216

== ENCOUNTER → 2020-03-05 10:21 | Outpatient (CLI) | payer MEDICARE, OTHER, SELFPAY ==
[2020-03-05 09:26] VITALS: BMI 26.1
[2020-03-05 12:04] LABS: Anion Gap 6 (5-15); BUN 31 mg/dL (7-18); BUN/Creat Ratio 24.8 RATIO (10-20); Calcium,Total 9.4 mg/dL (8.5-10.1); Chloride 112 mmol/L (98-107); Creatinine, Serum 1.25 mg/dL (0.70-1.30); EST Glomerular Filtration Rate 61 mL/min (>60); Est Glom Filt Rate - Afr Amer 74 mL/min (>60); Glucose 169 mg/dL (74-106); Magnesium 2.1 mg/dL (1.6-2.6); Potassium 4.3 mmol/L (3.5-5.1); Sodium Level 143 mmol/L (136-145)
== END ==
PROVIDERS: PCP Internal Medicine; Referring Provider Internal Medicine Cardiovascular Disease; Visit Provider Internal Medicine Cardiovascular Disease
DX: R06.00 Dyspnea, unspecified (principal)
CPT/HCPCS: 36415; 80048; 83735

== ENCOUNTER → 2020-04-25 09:29 | Outpatient (CLI) | payer MEDICARE, OTHER, SELFPAY ==
[2020-03-05 09:26] VITALS: BMI 26.1
--- NOTE | 2020-04-25 09:33 | ECHOD_ITS ---
Reason For Study: CMP Procedure This was a 2D Doppler, Color Flow transthoracic echocardiogram. Contrast injection was performed. Exam performed in department. Left Ventricle Moderately dilated left ventricle. The estimated ejection fraction is 20 %. Stage 3 diastolic dysfunction. There is severe global hypokinesis of the left ventricle. Right Ventricle Moderately dilated right ventricle. ICD or pacer leads identified within the right ventricle. Mild global right ventricular systolic dysfunction. Atria The left atrium is moderately enlarged. The right atrium is moderately enlarged. Patent foramen ovale. Mitral Valve Normal mitral valve. Moderate (2+) eccentric mitral valve insufficiency. Tricuspid Valve Normal tricuspid valve. Moderate (2+) tricuspid valve insufficiency. Pulmonary artery systolic pressure is 46 mmHg. Moderate pulmonary hypertension. Aortic Valve Normal aortic valve. Trisinus/trileaflet aortic valve. Great Vessels Normal aortic root. The pulmonary artery is normal size. The inferior vena cava is dilated. Pericardium/Pleural No pericardial effusion. Medication 22 gauge I.V. with prn adaptor inserted into right arm. Performed a rapid injection of agitated mix of 9 cc saline and 1cc air to assess for atrial septal defect. MMode/2D Measurements & Calculations LVIDd: 5.3 cm IVSd: 1.2 cm Ao root diam: 3.7 cm LVIDs: 4.9 cm LVPWd: 1.3 cm LA dimension: 5.7 cm RVDd: 6.4 cm FS: 8.0 % LAV(MOD-bp): 96.2 ml LVAd ap4: 41.1 cm2 SV(MOD-sp4): 40.8 ml LAV(MOD-bp) Indexed: 51.0 ml/m2 EDV(MOD-sp4): 149.9 ml LAV(MOD-sp2): 99.1 ml EDV(sp4-el): 151.2 ml LAV(MOD-sp4): 93.6 ml LVAs ap4: 33.6 cm2 ESV(MOD-sp4): 109.2 ml ESV(sp4-el): 107.5 ml EF(MOD-sp4): 27.2 % EF(sp4-el): 28.9 % SV(sp4-el): 43.7 ml LA A4 area: 27.0 cm2 RA A4 area: 26.8 cm2 Time Measurements MV dec time: 0.14 sec Doppler Measurements & Calculations MV E max prabhjot: 79.9 cm/sec Lat Peak E' Prabhjot: 5.9 cm/sec Med Peak E' Prabhjot: 3.4 cm/sec MV A max prabhjot: 31.4 cm/sec E/E' lat: 13.6 E/E' med: 23.8 MV E/A: 2.5 MV V2 max: 95.1 cm/sec MV P1/2t max prabhjot: 96.6 cm/sec Ao V2 max: 97.1 cm/sec MV max P.6 mmHg MV P1/2t: 60.0 msec Ao max P.8 mmHg MV V2 mean: 41.4 cm/sec MV mean P.87 mmHg MV dec slope: 471.7 cm/sec2 MV V2 VTI: 19.6 cm MVA(P1/2t): 3.7 cm2 LV V1 max: 75.4 cm/sec MR max prabhjot: 378.2 cm/sec PA V2 max: 80.0 cm/sec LV V1 max P.3 mmHg MR max P.2 mmHg MR mean prabhjot: 317.8 cm/sec MR mean P.2 mmHg MR VTI: 143.5 cm TR max prabhjot: 326.1 cm/sec TR max P.5 mmHg Interpretation Summary Moderately dilated left ventricle. The estimated ejection fraction is 20 %. Stage 3 diastolic dysfunction. Moderate (2+) eccentric mitral valve insufficiency. Pulmonary artery systolic pressure is 46 mmHg. Moderate pulmonary hypertension. Ordering Physician: Cosme Gonzáles Referring Physician: Pratibha Canales M.D. Performed By: Jon Salvador RCS
[2020-04-25 11:20] LABS: Absolute Lymphocyte Count 0.43 X10^3/uL (0.83-4.51); Absolute Neutrophil Count 6.8 X10^3/uL (2.0-7.7); Basophil# 0.04 X10^3/uL; Basophil% 0.5 % (0-1); Eosinophil# 0.61 X10^3/uL; Eosinophils% 7.2 % (0-5); Hematocrit 41.1 % (40-54); Hemoglobin 12.3 g/dL (13.0-16.5); Lymphocyte # 0.43 X10^3/ul (4.0); Lymphocyte % 5.1 % (19-41); Mean Corp Hgb Conc 29.9 g/dL (32-36); Mean Corpuscular Hgb 23.7 pg (27.0-32.0); Mean Corpuscular Volume 79.3 fL (80-94); Monocyte# 0.54 X10^3/uL; Monocyte% 6.4 % (0-10); NRBC Flagged by Analyzer 0 % (0-5); Neutrophil # 6.82 X10^3/uL (2.7-7.7); Neutrophil % 80.4 % (47-70); POSITIVE DIFFERENTIAL YES; POSITIVE MORPHOLOGY YES; Platelet Count 147 K/mm3 (150-450); RBC Distribution Width CV 23.3 % (11.6-14.6); RBC Distribution Width SD 64.7 fl (35.1-43.9); Red Blood Count 5.18 M/mm3 (4.6-6.2); White Blood Count 8.5 K/mm3 (4.4-11.0)
[2020-04-25 11:22] LABS: Differential Indicated SCAN CRITERIA MET
[2020-04-25 11:51] LABS: Anisocytosis 1+
[2020-04-25 11:57] LABS: AST(SGOT) 17 U/L (15-37); Alanine Aminotransfer ALT/SGPT 24 U/L (16-61); Albumin, Serum 3.5 g/dL (3.2-5.0); Alkaline Phosphatase 108 U/L (45-117); Anion Gap 5 (5-15); BUN 27 mg/dL (7-18); BUN/Creat Ratio 24.3 RATIO (10-20); Bilirubin, Direct 0.65 mg/dL (0.00-0.30); Calcium,Total 8.9 mg/dL (8.5-10.1); Chloride 111 mmol/L (98-107); Creatinine, Serum 1.11 mg/dL (0.70-1.30); EST Glomerular Filtration Rate 70 mL/min (>60); Est Glom Filt Rate - Afr Amer 85 mL/min (>60); Globulin 3.7 g/dL (2.2-4.2); Glucose 108 mg/dL (74-106); Hemoglobin A1c 7.4 % (3.8-5.6); Potassium 4.3 mmol/L (3.5-5.1); Protein, Total 7.2 g/dL (6.4-8.2); Sodium Level 140 mmol/L (136-145); T4 Free Direct 1.22 ng/dL (0.76-1.46); Thyroid Stim Hormone (TSH) 2.09 uIU/mL (0.358-3.74)
[2020-04-29 05:06] LABS: HEPATITIS B SURFACE AG Negative (Negative); Hepatitis A IgM Antibody Negative (Negative); Hepatitis B Core AB IgM Negative (Negative); Immunoglobulin A 111 mg/dL (61-437); Immunoglobulin E 88 IU/mL (6-495); Immunoglobulin G 1487 mg/dL (603-1613); PROEL- A/G Ratio 1.1 (0.7-1.7); PROEL- Albumin 3.5 g/dL (2.9-4.4); PROEL- Alpha-1 Globulin 0.2 g/dL (0.0-0.4); PROEL- Alpha-2 Globulin 0.6 g/dL (0.4-1.0); PROEL- Beta Globulin 0.9 g/dL (0.7-1.3); PROEL- Gamma Globulin 1.3 g/dL (0.4-1.8); PROEL- Globulin, Total 3.1 g/dL (2.2-3.9); PROEL- TOTAL PROTEIN 6.6 g/dL (6.0-8.5)
[2020-04-29 16:00] LABS: Hep C Antibodies <0.1 s/co ratio (0.0-0.9); Immunoglobulin M 19 mg/dL (20-172)
== END ==
PROVIDERS: PCP Internal Medicine; Referring Provider Internal Medicine Cardiovascular Disease; Visit Provider Internal Medicine Cardiovascular Disease
DX: I42.8 Other cardiomyopathies (principal); I11.0 Hypertensive heart disease with heart failure; I50.42 Chronic combined systolic (congestive) and diastolic (congestive) heart failure; I27.21 Secondary pulmonary arterial hypertension; I25.10 Atherosclerotic heart disease of native coronary artery without angina pectoris; I36.1 Nonrheumatic tricuspid (valve) insufficiency; I45.2 Bifascicular block; I48.20 Chronic atrial fibrillation, unspecified; E78.5 Hyperlipidemia, unspecified; Z98.61 Coronary angioplasty status; Z95.810 Presence of automatic (implantable) cardiac defibrillator; Q80.0 Ichthyosis vulgaris; L29.8 Other pruritus
CPT/HCPCS: 36415; 80048; 80074; 80076; 82784; 82785; 83036; 84165; 84439; 84443; 85025; 93306; A4216

== ENCOUNTER → 2020-05-01 16:03 | Outpatient (CLI) | payer MEDICARE, OTHER, SELFPAY ==
[2020-03-05 09:26] VITALS: BMI 26.1
[2020-05-01 17:15] LABS: Anion Gap 9 (5-15); BUN 28 mg/dL (7-18); BUN/Creat Ratio 23.9 RATIO (10-20); Calcium,Total 9.2 mg/dL (8.5-10.1); Chloride 104 mmol/L (98-107); Creatinine, Serum 1.17 mg/dL (0.70-1.30); EST Glomerular Filtration Rate 66 mL/min (>60); Est Glom Filt Rate - Afr Amer 80 mL/min (>60); Glucose 118 mg/dL (74-106); Potassium 3.6 mmol/L (3.5-5.1); Sodium Level 138 mmol/L (136-145)
== END ==
PROVIDERS: PCP Internal Medicine; Referring Provider Internal Medicine Cardiovascular Disease; Visit Provider Internal Medicine Cardiovascular Disease
DX: I25.10 Atherosclerotic heart disease of native coronary artery without angina pectoris (principal); E78.5 Hyperlipidemia, unspecified; I21.4 Non-ST elevation (NSTEMI) myocardial infarction; I27.21 Secondary pulmonary arterial hypertension; I42.8 Other cardiomyopathies; I45.2 Bifascicular block; I48.11 Longstanding persistent atrial fibrillation; I11.9 Hypertensive heart disease without heart failure; Z95.810 Presence of automatic (implantable) cardiac defibrillator; Z98.61 Coronary angioplasty status
CPT/HCPCS: 36415; 80048

== ENCOUNTER 2020-05-05 09:55 | Outpatient (CLI) | payer MEDICARE, OTHER, SELFPAY ==
[2020-03-05 09:26] VITALS: BMI 26.1
[2020-05-02 08:58] VITALS: BMI 26.1
--- NOTE | 2020-05-05 09:59 | ECHOL_ITS ---
Reason For Study: CMP Procedure This was a limited 2D transthoracic echocardiogram. 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 Left Ventricle Normal LV size. The estimated ejection fraction is 20 %. No regional wall motion abnormalities noted. Right Ventricle Normal RV size. ICD or pacer leads identified within the right ventricle. Normal systolic function. Atria The left atrium is moderately enlarged. The right atrium is moderately enlarged. Pericardium/Pleural No pericardial effusion. MMode/2D Measurements & Calculations LVIDd: 5.4 cm IVSd: 1.4 cm Ao root diam: 3.3 cm LVIDs: 5.0 cm LVPWd: 1.2 cm FS: 7.9 % LAV(MOD-bp): 86.2 ml LA A4 area: 25.3 cm2 LA dimension(2D): 5.7 cm LAV(MOD-bp) Indexed: 44.0 ml/m2 LAV(MOD-sp2): 86.6 ml LAV(MOD-sp4): 76.4 ml RA A4 area: 24.5 cm2 Doppler Measurements & Calculations MV E max yeison: 85.6 cm/sec MV A max yeison: 23.8 cm/sec MV E/A: 3.6 Interpretation Summary Normal LV size. The estimated ejection fraction is 20 %. AV sequential timing set at 180ms which was thought to be the most ideal. Ordering Physician: Cosme Gonzáles Referring Physician: Pratibha Canales M.D. Performed By: Liliana Sevilla RDCS
--- NOTE | 2020-05-05 12:20 | PCM.CONS.C ---
Reason for Consult Date of Consultation: 05/05/20 Reason for Consultation: For DC cardioversion History of Present Illness: ] 69-year-old man with a history of hypertension, permanent atrial flutter, heart failure with reduced ejection fraction estimated EF of 20 to 25% due to nonischemic cardiomyopathy. He also has a history of pulmonary hypertension and decompensated cirrhosis with ascites. You do remember that he had presented to [facility] to hospital after his previous cardiac catheterization in August which demonstrated normal epicardial coronary arteries. He did have a small non-ST elevation myocardial infarction repeat cardiac catheterization demonstrated distal occlusion of ramus with unsuccessful thrombectomy attempt. Due to his bradycardia as well as nonsustained ventricular tachycardia he was sent to [facility] where he was evaluated. He underwent placement of a biventricular ICD and actually did well. He has been noted to be still short of breath a repeat echocardiogram demonstrated ejection fraction of 20%. It was felt that he should be brought in for AV optimization via echo guidance and DC cardioversion. Past Medical History Allergies/Adverse Reactions: Allergies No Known Allergies Allergy (Verified 05/02/20 08:59) Home Medications: Ambulatory Orders Medication Instructions Recorded Albuterol Sulfate [Ventolin Hfa] 2 puff INHALATION Q6H PRN PRN 10/30/18 Insulin Glargine,Hum.rec.anlog 10 unit SQ QHS 10/30/18 [Krish Alvarez U-100] Lisinopril 40 mg PO DAILY 10/30/18 Omeprazole 20 mg PO BID 10/30/18 Pravastatin Sodium 20 mg PO DAILY 10/30/18 Spironolactone 25 mg PO BID 10/30/18 Topiramate 25 mg PO BID 10/30/18 bumetanide 1 mg tablet 1 - 2 mg PO BID tab 04/17/19 metformin 500 mg tablet,extended 2,000 mg PO DAILY 90 Days #360 tab 04/17/19 release 24 hr apixaban 5 mg tablet 5 mg PO BID #60 tab 11/01/19 sotalol 80 mg tablet 80 mg PO BID #60 tab 11/01/19 metoprolol succinate 50 mg 50 mg PO DAILY #30 tab 04/07/20 tablet,extended release 24 hr Past Medical History (Chronic Problems): Chronic Problems (Last Reviewed 03/05/20 @ 09:28 by Christine Reynolds) Longstanding persistent atrial fibrillation (Chronic) Nonischemic cardiomyopathy (Chronic) Biventricular ICD (implantable cardioverter-defibrillator) in place (Chronic 10/12/19) Right ventricular systolic dysfunction (Chronic) 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 (congestive heart failure) (Chronic) Atherosclerosis of coronary artery of [place] heart without angina pectoris (Chronic) Secondary pulmonary arterial hypertension (Chronic) Essential (primary) hypertension (Chronic) Hyperlipidemia (Chronic) Surgical History: tonsillectomy, - - Surgery for removal of brain tumor Psychiatric History: No pertinent psych hx - *Family History Maternal Family History: Family History (Last Reviewed 03/05/20 @ 09:28 by Christine Reynolds) Daughter Heart disease History Items: Stroke Paternal Family History: Family History (Last Reviewed 03/05/20 @ 09:28 by Christine Reynolds) Daughter Heart disease History Items: Heart Disease Smoking Status: Former smoker Tobacco Use: Non-smoker Alcohol: None Drugs: None Review of Systems - Review of Systems General: Reports: Fatigue, Malaise. Denies: Fever, Night Sweats HEENT: Denies: Vision Change Cardiovascular: Reports: Shortness of Breath. Denies: Chest Discomfort, Orthopnea, PND, Peripheral Edema, Palpitations, Lightheadedness, Dizziness, Near Syncope, Syncope Respiratory: Denies: Cough, Sputum Production, Hemoptysis Gastrointestinal: Denies: Hematemesis, Hematochezia, Melena Genitourinary: Denies: Dysuria, Hematuria Muscoloskeletal: Denies: Myalgias Skin: Denies: Rash Neurological: Denies: Dizziness Psychiatric: Denies: Anxiety Subjectve: Pleasant gentleman in no distress Objective: Weight: 177 lb Body Mass Index (BMI) 26.1 Finger Stick Blood Glucose 173 General: Awake, Alert, Oriented x 3 HEENT: PERRL, EOMI, Sclera Non Icteric Neck: Supple, Good ROM, No Lymph Node Enlargement Lungs: Clear to auscultation Cardiovascular: Regular Rhythm, Normal S1, Normal S2, No Murmurs, No Rubs, No Gallops Rhythm: EKG: ECHO: Stress Test: Cardiac Cath: PCI: CT Surgery: Holter monitor: EPS: PPM: CXR: Chest CT Scan: Assessment/Plan 1. Atrial fibrillation flutter Patient presents with atrial fibrillation and flutter and a reduced ejection fraction. It is felt that this may be contributing to his shortness of breath. The plan at this time is for him to undergo DC cardioversion under anticoagulation and adjust his sotalol dose and have him undergo AV sequential echo guided optimization. Depending on the findings further recommendations will be made. The risk benefits and alternatives have been explained to him he understands and agrees to proceed.
--- NOTE | 2020-05-05 12:22 | PCM.OP.PRO ---
Procedure Report Date of Procedure: 05/05/20 Elective DC cardioversion [69-year-old [man]with a history of chronic persistent atrial fibrillation. He also has severe left ventricular systolic dysfunction and has a biventricular ICD. [He]was brought to the cardiac catheterization lab in the postabsorptive nonsedated state and was seen by [Dr. Warren Dumont] of the critical care division. AP pads were applied and the patient was administered[6 mg of intravenous etomidate]after informed consent was obtained. 200 J of biphasic DC cardioversion energy were applied with prompt reversal to sinus rhythm. Patient was noted to be in sinus bradycardia. [He] tolerated the procedure well. X Conclusion: Successful DC cardioversion from [atrial fibrillation] to sinus rhythm. Recommendations: Continue Eliquis Increase sotalol to 120 mg twice a day Will undergo AV optimization via echo guidance today Follow-up in my office in [facility]
--- NOTE | 2020-05-05 13:18 | PRO.PCM_ITS ---
Procedure Report Date of Procedure: 05/05/20 CONSCIOUS SEDATION REPORT DATE OF SERVICE: May 05, 2020 BRIEF HISTORY OF PRESENT ILLNESS: The patient is a 69-year-old male who presented to [facility] for an elective outpatient cardioversion due to underlying atrial fibrillation. The patient is currently anticoagulated on Eliquis. His last surface echocardiogram revealed an ejection fraction of approximately 20 to 25%. The patient denies ever having experienced any adverse reactions from anesthesia. He does have a prior smoking history and was previously diagnosed with sleep apnea, for which he is currently prescribed nocturnal Pap therapy. PHYSICAL EXAMINATION: VITAL SIGNS: Reviewed and were acceptable. GENERAL: The patient is in no apparent distress, speaking in full sentences. HEENT: Normocephalic, atraumatic. Mucous membranes are moist and pink. Good mouth opening noted. Trachea is midline. CHEST: S1, S2 irregularly irregular. No murmurs, rubs or gallops were noted. LUNGS: Clear to auscultation bilaterally without appreciable wheezes, rales or rhonchi. ABDOMEN: Soft, nontender, nondistended. Positive bowel sounds. EXTREMITIES: There is no clubbing, cyanosis or edema. ASA Class: II DESCRIPTION OF PROCEDURE: After confirmation of informed consent, the patient's anesthesia plan was reviewed in detail. Etomidate was chosen. Risks and benefits were reviewed and the patient agreed to proceed. At 1212, the patient was given 6 mg of etomidate. The patient achieved an appropriate level of sedation and was given a 200 joule synchronized cardioversion by Dr. Gonzáles at the bedside. This was successful in achieving normal sinus rhythm. The patient was monitored until 1222, at which time he reached his baseline mental status and function. The patient tolerated the procedure well. COMPLICATIONS: None ESTIMATED BLOOD LOSS: None RECOMMENDATIONS: Okay to recover in usual fashion. [id number]: Other Procedure See Report - [id number]
== END 2020-05-05 13:25 | disposition home health service (06) ==
LOC: CVS 09:56
PROVIDERS: PCP Internal Medicine; Referring Provider Internal Medicine Cardiovascular Disease; Visit Provider Internal Medicine Cardiovascular Disease
DX: I48.11 Longstanding persistent atrial fibrillation (principal); I48.92 Unspecified atrial flutter; I11.0 Hypertensive heart disease with heart failure; I50.42 Chronic combined systolic (congestive) and diastolic (congestive) heart failure; I25.10 Atherosclerotic heart disease of native coronary artery without angina pectoris; I27.21 Secondary pulmonary arterial hypertension; I42.8 Other cardiomyopathies; K74.60 Unspecified cirrhosis of liver; R18.8 Other ascites; I45.2 Bifascicular block; E78.5 Hyperlipidemia, unspecified; G47.30 Sleep apnea, unspecified; Z79.4 Long term (current) use of insulin; Z79.01 Long term (current) use of anticoagulants; Z79.899 Other long term (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; I25.2 Old myocardial infarction; Z98.61 Coronary angioplasty status; Z95.810 Presence of automatic (implantable) cardiac defibrillator; Z87.891 Personal history of nicotine dependence
CPT/HCPCS: 92960; 93005; 93308; J7040

== ENCOUNTER 2020-05-25 01:04 | Observation (INO) | payer MEDICARE, OTHER, SELFPAY ==
[2020-05-02 08:58] VITALS: BMI 26.1
[2020-05-25] VITALS (21 sets, daily range): BP systolic 113–136; BP diastolic 74–111; PULSE 69–70; RESP 12–29; TEMP 36.1–37.2; O2SAT 95–99; BMI 27.2; BMI 26.0
--- NOTE | 2020-05-25 01:14 | RAD_ITS ---
STUDY: X-RAY CHEST REASON FOR EXAM: Male, 69 years old. Shortness of breath earlier today. TECHNIQUE: Frontal view COMPARISON: December 02, 2019 FINDINGS: Pacemaker leads are in proper position. The lungs are clear and expanded. There is no demonstrated pleural abnormality. Normal size heart. Normal mediastinum and ashly. Normal visualized pulmonary arteries. Normal visualized aortic arch and descending thoracic aorta. Normal visualized thoracic spine. Normal visualized ribs, clavicles, and shoulders. There is no demonstrated abnormality of the visualized soft tissue structures of the upper abdomen. RAD/Chest 1 View (Portable) IMPRESSION: Normal x-ray examination of the chest. Electronically Signed: Freeman Cisneros MD at 2:14 EDT , Service support ,
--- NOTE | 2020-05-25 01:14 | EKG12_ITS ---
Test Reason : CP Blood Pressure : / mmHG Vent. Rate : 070 BPM Atrial Rate : 070 BPM P-R Int : 180 ms QRS Dur : 178 ms QT Int : 492 ms P-R-T Axes : 118 202 111 degrees QTc Int : 531 ms AV dual-paced rhythm Biventricular pacemaker detected Abnormal ECG Confirmed by TASIA BUSTILLO, JONNATHAN ([id number]), desk editor ISREAL HORTON ([id number]) on 05/28/2020 8:55:17 AM Referred By: Mary Leonard Confirmed By:JONNATHAN DOZIER MD
--- NOTE | 2020-05-25 01:14 | ED.VIS.GEN ---
History of Present Illness Chief Complaint: Chest Pain Informant: Patient Narrative: The 69-year-old male presents with chest pain. He states it started a short while ago when he was getting up to have a bowel movement. He states it feels tight. He initially said he felt nauseous and kind of sweaty. He called EMS. They did give him 4 aspirin as well as nitroglycerin. He states that his pain is improved on arrival. Past Medical History - Allergies and Home Meds Allergies/Adverse Reactions: Allergies No Known Allergies Allergy (Verified 05/25/20 01:10) Prior records reviewed: Yes Surgical History: tonsillectomy, - - Surgery for removal of brain tumor Smoking Status: Former smoker Alcohol: None Drugs: None - Family History Maternal Family History: Family History (Last Reviewed 03/05/20 @ 09:28 by Christine Reynolds) Daughter Heart disease Family History: Reports: Stroke Paternal Family History: Family History (Last Reviewed 03/05/20 @ 09:28 by Christine Reynolds) Daughter Heart disease Family History: Reports: Heart Disease Offspring Family History: Family History (Last Reviewed 03/05/20 @ 09:28 by Christine Reynolds) Daughter Heart disease Family History: Reports: Heart Disease - Valvular heart disease s/p repair, CHF. Review of Systems General: Denies: Chills, Fever, Sweats Eyes: Denies: Visual changes - bilaterally, Diplopia ENT: Denies: Rhinorrhea, Sore throat Cardiovascular: Reports: Chest pain Respiratory: Reports: Dyspnea Gastrointestinal: Reports: Nausea Genitourinary: Denies: Dysuria Musculoskeletal: Denies: Myalgias Skin: Denies: Rash Neurological: Denies: Headache Hematologic: Denies: Easy bruising, Easy bleeding Physical Exam Vital Signs/Narrative: Vital Signs Temp Pulse Resp BP Pulse Ox 05/25/20 01:06 98.1 F 70 25 H 135/111 H 97 Inital Vital Signs reviewed: Yes Head: Normocephalic, Atraumatic Eyes: Perrl, EOMI ENT: Moist mucous membranes, No rhinorrhea Cardiovascular: Regular rate, Regular rhythm Respiratory: No distress, CTA bilaterally Abdomen: Soft Extremities: Edema Skin: No rash Neurological: Alert, Oriented x3 Psychological: Normal affect Diagnostic/Tx/Re-eval Clinical Impression(s) from Imaging Studies Chest X-Ray 05/25/20 01:14 IMPRESSION: Normal x-ray examination of the chest. Electronically Signed: Freeman Cisneros MD at 2:14 EDT , Service support , Laboratory Data 05/25/20 05/25/20 05/25/20 01:15 01:15 01:15 WBC 7.4 RBC 4.71 Hgb 11.6 L Hct 38.5 L MCV 81.7 MCH 24.6 L MCHC 30.1 L RDW Std Deviation 70.6 H RDW Coeff of Yonathan 24.6 H Plt Count 136 L Immature Gran % (Auto) 0.400 Neut % (Auto) 80.1 H Lymph % (Auto) 7.0 L [place] % (Auto) 8.4 Eos % (Auto) 3.6 Baso % (Auto) 0.5 Absolute Neuts (auto) 5.9 Absolute Lymphs (auto) 0.52 L Nucleated RBC % 0 Platelet Estimate SLT DEC Hypochromasia 2+ Anisocytosis 1+ Microcytosis 1+ Sodium 140 Potassium 5.4 H Chloride 115 H Carbon Dioxide 22.0 Anion Gap 3 L BUN 31 H Creatinine 1.04 Estim Creat Clear Calc 68.92 Est GFR (MDRD) Af Amer 91 Est GFR (MDRD) Non-Af 76 BUN/Creatinine Ratio 29.8 H Glucose 183 H Calcium 8.7 Troponin I 0.055 H B-Natriuretic Peptide 538.1 H 05/25/20 03:15 WBC RBC Hgb Hct MCV MCH MCHC RDW Std Deviation RDW Coeff of Yonathan Plt Count Immature Gran % (Auto) Neut % (Auto) Lymph % (Auto) [place] % (Auto) Eos % (Auto) Baso % (Auto) Absolute Neuts (auto) Absolute Lymphs (auto) Nucleated RBC % Platelet Estimate Hypochromasia Anisocytosis Microcytosis Sodium Potassium Chloride Carbon Dioxide Anion Gap BUN Creatinine Estim Creat Clear Calc Est GFR (MDRD) Af Amer Est GFR (MDRD) Non-Af BUN/Creatinine Ratio Glucose Calcium Troponin I 0.053 H B-Natriuretic Peptide Patient presented with chest pain which lasted around 30 minutes at home. He states he did get a little sweaty and nauseous. He has an extensive cardiac history. His EKG is a paced rhythm at 70 bpm and is troponin is indeterminant. Chest x-ray shows no acute process. Troponin has gone down slightly. Repeat EKG is the same. His vital signs are stable and he is afebrile. He has been chest pain-free since he has been in the ED. 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 He has no signs of CHF on chest x-ray although he does have pedal edema. Patient is anticoagulated so I do not believe this is a pulmonary embolism. This was discussed with the on-call helmet hat sweatband puncher who recommended that we admit him for observation. Patient is stable for the medical floor. Impression: 1. Chest pain 2. Indeterminate troponin 3. Elevated BNP - EKG Initial EKG Interpretation: No Acute Injury Pattern, - - Paced rhythm at 70 bpm Follow-up EKG Interpretation: No Acute Injury Pattern Prior: Unchanged - Patient rhythm at 70 bpm ED Disposition - Plan for ED Patient: Disposition: Acute Care [facility] Diagnosis: Chest pain
[2020-05-25 01:35] LABS: Absolute Lymphocyte Count 0.52 X10^3/uL (0.83-4.51); Absolute Neutrophil Count 5.9 X10^3/uL (2.0-7.7); Basophil# 0.04 X10^3/uL; Basophil% 0.5 % (0-1); Eosinophil# 0.27 X10^3/uL; Eosinophils% 3.6 % (0-5); Hematocrit 38.5 % (40-54); Hemoglobin 11.6 g/dL (13.0-16.5); Lymphocyte # 0.52 X10^3/ul (4.0); Mean Corp Hgb Conc 30.1 g/dL (32-36); Mean Corpuscular Hgb 24.6 pg (27.0-32.0); Mean Corpuscular Volume 81.7 fL (80-94); Monocyte# 0.62 X10^3/uL; Monocyte% 8.4 % (0-10); NRBC Flagged by Analyzer 0 % (0-5); Neutrophil # 5.93 X10^3/uL (2.7-7.7); Neutrophil % 80.1 % (47-70); POSITIVE DIFFERENTIAL YES; POSITIVE MORPHOLOGY YES; Platelet Count 136 K/mm3 (150-450); RBC Distribution Width CV 24.6 % (11.6-14.6); RBC Distribution Width SD 70.6 fl (35.1-43.9); Red Blood Count 4.71 M/mm3 (4.6-6.2); White Blood Count 7.4 K/mm3 (4.4-11.0)
[2020-05-25 01:49] LABS: Anion Gap 3 (5-15); BUN 31 mg/dL (7-18); BUN/Creat Ratio 29.8 RATIO (10-20); Calcium,Total 8.7 mg/dL (8.5-10.1); Chloride 115 mmol/L (98-107); Creatinine, Serum 1.04 mg/dL (0.70-1.30); EST Glomerular Filtration Rate 76 mL/min (>60); Est Glom Filt Rate - Afr Amer 91 mL/min (>60); Estimated Creatinine Clearance 68.92 ml/min; Glucose 183 mg/dL (74-106); Potassium 5.4 mmol/L (3.5-5.1); Sodium Level 140 mmol/L (136-145)
[2020-05-25 02:13] LABS: Differential Indicated SCAN CRITERIA MET
[2020-05-25 02:29] LABS: Anisocytosis 1+; Hypochromasia 2+; Platelet Estimate SLT DEC (ADEQ)
[2020-05-25 02:30] LABS: Microcytosis 1+
[2020-05-25 02:32] LABS: BNP,B-Type NATRIURETIC PEPTIDE 538.1 pg/mL (0-100)
--- NOTE | 2020-05-25 04:07 | EKG12_ITS ---
Test Reason : CP Blood Pressure : / mmHG Vent. Rate : 070 BPM Atrial Rate : 070 BPM P-R Int : 178 ms QRS Dur : 178 ms QT Int : 498 ms P-R-T Axes : 106 190 094 degrees QTc Int : 537 ms Poor data quality, interpretation may be adversely affected AV dual-paced rhythm Biventricular pacemaker detected Abnormal ECG Confirmed by BRADY LAWRENCE MD ([id number]), photography editor ISREAL HORTON ([id number]) on 05/27/2020 9:29:36 AM Referred By: Mary Leonard Confirmed By:BRADY LAWRENCE MD
--- NOTE | 2020-05-25 04:27 | PCM.HP.STD ---
Problem List (1) Chest pain Status: Acute Qualifiers: Chest pain type: unspecified Qualified Code(s): R07.9 - Chest pain, unspecified (2) Diabetes mellitus, type II Status: Chronic Qualifiers: Diabetes mellitus chcf insulin use: with chcf use Diabetes mellitus complication status: with other specified complication Qualified Code(s): E11.69 - Type 2 diabetes mellitus with other specified complication; Z79.4 - skilled nursing (current) use of insulin (3) ALBINO (obstructive sleep apnea) Status: Chronic (4) Seizure disorder Status: Chronic (5) History of CVA (cerebrovascular accident) Status: Chronic (6) Cirrhosis of liver Status: Chronic Qualifiers: Hepatic cirrhosis type: unspecified hepatic cirrhosis Ascites presence: unspecified Qualified Code(s): K74.60 - Unspecified cirrhosis of liver (7) Longstanding persistent atrial fibrillation Status: Chronic (8) Nonischemic cardiomyopathy Status: Chronic (9) Biventricular ICD (implantable cardioverter-defibrillator) in place Status: Chronic (10) Chronic combined systolic and diastolic CHF (congestive heart failure) Status: Chronic (11) Atherosclerosis of coronary artery of [place] heart without angina pectoris Status: Chronic Qualifiers: Coronary Disease-Associated Artery/Lesion type: unspecified vessel or lesion type Qualified Code(s): I25.10 - Atherosclerotic heart disease of [place] coronary artery without angina pectoris (12) History of percutaneous coronary intervention Status: Resolved Comment: Thrombectomy of occlusion of distal Ramus 10/10/19 (13) NSTEMI (non-ST elevated myocardial infarction) Status: Resolved (14) Essential (primary) hypertension Status: Chronic (15) Hyperlipidemia Status: Chronic Qualifiers: Hyperlipidemia type: unspecified Qualified Code(s): E78.5 - Hyperlipidemia, unspecified History of Present Illness Date of Admission: 05/25/20 Chief Complaint: Chest pain The patient is a 69 y/o M w/ PMHx: CAD s/p thromectomy distal ramus 10/10/19, Diastolic and Systolic CHF/Non-ischemic cardiomyopathy s/p ACID placement, HTN, HLD, Hx CVA, HTN, HLD, Seizure disorder, Diabetes mellitus type II, Liver Cirrhosis with ascites, PAF/Flutter, Asthma who presents to the [facility] ED on 05/25/20 with history of onset of chest discomfort following getting up to use the restroom described as a midsternal chest tightness rated 3-4 out of 10 in severity initially with mild nausea without emesis and diaphoresis with associated dyspnea prompting him to call EMS with self administration of aspirin therapy as well as nitroglycerin with resolution of pain upon ED arrival. He notes that recently he is been able to perform normal activity with no shortness of breath or chest pain. He denies any orthopnea or recent weight gain or market edema alteration. He denies any recent cough, congestion, rhinorrhea, sore throat, alteration in sense of taste or smell, emesis, abdominal discomfort or diarrhea. Work-up in the ED included T 98.1, heart rate 70, BP 135/111, respiratory rate 25, 97% on room air, CBC with WBC 7.4, hemoglobin 11.6, platelet 136 without left shift but noted lymphopenia, BMP with potassium 5.4, chloride 115, BUN/creatinine 31/1.04, glucose 183, troponin 0.055 similar to prior with last 12/02/2019 0.058 and repeat delta 0.053, BNP 538.1 with no prior comparison, chest x-ray with no acute cardiopulmonary findings, EKG paced without acute evidence of ischemia. 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 (congestive heart failure) (Chronic) Atherosclerosis of coronary artery of [place] heart without angina pectoris (Chronic) Secondary pulmonary arterial hypertension (Chronic) Essential (primary) hypertension (Chronic) Hyperlipidemia (Chronic) Medical History: Medical History (Last Reviewed 03/05/20 @ 09:28 by Christine Reynolds) Longstanding persistent atrial fibrillation (Chronic) I48.11 Nonischemic cardiomyopathy (Chronic) I42.8 Right ventricular systolic dysfunction (Chronic) I51.9 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) I45.2 Chronic combined systolic and diastolic CHF (congestive heart failure) (Chronic) I50.42 Atherosclerosis of coronary artery of [place] heart without angina pectoris (Chronic) I25.10 NSTEMI (non-ST elevated myocardial infarction) (Resolved) Onset Date: 10/09/19 I21.4 Secondary pulmonary arterial hypertension (Chronic) I27.21 Essential (primary) hypertension (Chronic) I10 Hyperlipidemia (Chronic) E78.5 Asthma J45.909 CVA (cerebral vascular accident) Onset Date: 2010 I63.9 Cholelithiasis K80.20 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, R18.8 Obstructive sleep apnea G47.33 Renal adenoma D30.00 Seizure disorder G40.909 Stasis edema of both lower extremities I87.303 Type 2 diabetes mellitus E11.9 Benign brain tumor D33.2 Syncope Onset Date: 10/2018 R55 Atrial fibrillation and flutter (Inactive) I48.91, I48.92 Non-rheumatic tricuspid valve insufficiency (Inactive) I36.1 Allergies No Known Allergies Allergy (Verified 05/25/20 01:10) Home Medications: Ambulatory Orders Medication Instructions Recorded Albuterol Sulfate [Ventolin Hfa] 2 puff INHALATION Q6H PRN PRN 10/30/18 Insulin Glargine,Hum.rec.anlog 10 unit SQ QHS 10/30/18 [Krish Alvarez U-100] Lisinopril 40 mg PO DAILY 10/30/18 Omeprazole 20 mg PO BID 10/30/18 Pravastatin Sodium 20 mg PO DAILY 10/30/18 Spironolactone 25 mg PO BID 10/30/18 Topiramate 25 mg PO BID 10/30/18 bumetanide 1 mg tablet 1 - 2 mg PO BID tab 04/17/19 metformin 500 mg tablet,extended 2,000 mg PO DAILY 90 Days #360 tab 04/17/19 release 24 hr metoprolol succinate 50 mg 50 mg PO DAILY #30 tab 04/07/20 tablet,extended release 24 hr apixaban 5 mg tablet 5 mg PO BID #180 tab 05/12/20 sotalol 120 mg tablet 120 mg PO BID #180 tab 05/13/20 Surgical History: Surgical History (Last Updated 05/05/20 @ 19:19 by Christine Reynolds) Biventricular ICD (implantable cardioverter-defibrillator) in place (Chronic) Onset Date: 10/12/19 Z95.810 History of percutaneous coronary intervention (Resolved) Onset Date: 10/10/19 Z98.61 Thrombectomy of occlusion of distal Ramus 10/10/19 H/O excision of tumor of brain meninges Onset Date: 2011 Z98.890, Z86.03 History of cardioversion Onset Date: 05/05/20 Z98.890 History of left heart catheterization Onset Date: 08/31/19 Z98.890 History of right and left heart catheterization Z98.890 History of tonsillectomy Z90.89 Surgical History: tonsillectomy, - - Biventricular ICD placement, attempted PCI unsuccessful, 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 Psychiatric History: No pertinent psych hx Lives: Alone Smoking Status: Former smoker Tobacco Use: Non-smoker Alcohol: None Drugs: None - *Family History Maternal Family History: Family History (Last Reviewed 03/05/20 @ 09:28 by Christine Reynolds) Daughter Heart disease History Items: Stroke Paternal Family History: Family History (Last Reviewed 03/05/20 @ 09:28 by Christine Reynolds) Daughter Heart disease History Items: Heart Disease Offspring Family History: Family History (Last Reviewed 03/05/20 @ 09:28 by Christine Reynolds) Daughter Heart disease History Items: Heart Disease - Valvular heart disease s/p repair, CHF. Review of Systems Constitutional: Reports: Fatigue. Denies: Anorexia, Chills, Fever, Malaise, Weakness, Weight Change HEENT: Denies: Head Aches, Sinus Congestion, Sinus Drainage Cardiovascular: Reports: Chest Pain. Denies: Chest Pressure, Chest Tightness, Light Headedness, Orthopnea, Palpitations, Syncope Respiratory: Reports: Shortness of Breath. Denies: Cough, Shortness of breath at rest, Shortness of breath upon exertion, Sputum production Gastrointestinal: Reports: Nausea. Denies: Abdominal Pain, Vomiting Genitourinary: Denies: Dysuria Musculoskeletal: Denies: Joint Pain, Joint Tenderness Skin: Denies: Rash, Wounds Neurological: Denies: Numbness, Tingling, Focal weakness Psychiatric: Denies: Anxiety, Depression, Homicidal Ideations, Suicidal Ideations Hematologic/ Lymphatic: Reports: Anemia, Easy Bruising, Easy Bleeding VTE Information - Inpt Only VTE Present on Admission: No VTE Mechan Device Prophylaxis: SCD's VTE Pharm Prophylaxis ordered?: No Reason prophylaxis not ordered:: Treatment Not Indicated - On eliquis. Patient Problems: Active and Suspected Problems (Last Reviewed 03/05/20 @ 09:28 by Christine Reynolds) Chest pain (Acute) Subjective: Patient seated upright in ED bed, notes continued resolution chest pain, no acute complaints. Objective: Physical Examination: General: awake, alert, oriented x 3 and cooperative, seated upright in the ED bed in no apparent distress, denies any ongoing chest pain. Skin: normal color, turgor, no icterus, cyanosis except noted bilateral lower extremity chronic venous stasis skin changes. HEENT: AT/NC, EOMI, PERRLA, MMM, no carotid bruits or JVD noted. Lungs: CTA bilaterally, moderate effort, moderate decrease BL bases, no rales, ronchi or wheezing. Heart: Regular/paced; no gallop, rub audible. Abdomen: soft, NTTP, ND, normal BS, no HSM. Extremities: no cyanosis, clubbing, or edema. Neurological: patient awake, alert, oriented as noted; cognitive function intact; pupils equally reactive to light and accomodation; cranial nerves II-XII grossly normal, moving all 4 extremities, no focal deficits, strength preserved. Psychiatric: affect appears fatigued otherwise normal, no acute evidence of depressive or anxiety feelings. - Physical Exam Vitals/I&O's: Vital Signs Temp Pulse Resp BP Pulse Ox 98.1 F 70 28 H 124/89 H 97 05/25/20 01:06 05/25/20 03:00 05/25/20 03:00 05/25/20 03:00 05/25/20 03:00 Oxygen Delivery Method Room Air Weight: 184 lb 8.43 oz Body Mass Index (BMI) 27.2 Finger Stick Blood Glucose 173 Laboratory Results 05/25/20 01:15: WBC 7.4, RBC 4.71, Hgb 11.6 L, Hct 38.5 L, MCV 81.7, MCH 24.6 L, MCHC 30.1 L, RDW Std Deviation 70.6 H, RDW Coeff of Yonathan 24.6 H, Plt Count 136 L, Immature Gran % (Auto) 0.400, Neut % (Auto) 80.1 H, Lymph % (Auto) 7.0 L, [place] % (Auto) 8.4, Eos % (Auto) 3.6, Baso % (Auto) 0.5, Absolute Neuts (auto) 5.9, Absolute Lymphs (auto) 0.52 L, Nucleated RBC % 0, Platelet Estimate SLT DEC, Hypochromasia 2+, Anisocytosis 1+, Microcytosis 1+ 05/25/20 01:15: Sodium 140, Potassium 5.4 H, Chloride 115 H, Carbon Dioxide 22.0, Anion Gap 3 L, BUN 31 H, Creatinine 1.04, Estim Creat Clear Calc 68.92, Est GFR (MDRD) Af Amer 91, Est GFR (MDRD) Non-Af 76, BUN/Creatinine Ratio 29.8 H, Glucose 183 H, Calcium 8.7, Troponin I 0.055 H 05/25/20 01:15: B-Natriuretic Peptide 538.1 H 05/25/20 03:15: Troponin I 0.053 H Assessment/Plan All Active Problems (Last Reviewed 03/05/20 @ 09:28 by Christine Reynolds) Chest pain (Acute) Ascites (Acute) Dyspnea (Acute) Orthopnea (Acute) History of percutaneous coronary intervention (Resolved 10/10/19) NSTEMI (non-ST elevated myocardial infarction) (Resolved 10/09/19) Chest pain (Resolved) Syncope (Resolved) The patient is a 69 y/o M w/ PMHx: CAD s/p thromectomy distal ramus 10/10/19, Diastolic and Systolic CHF/Non-ischemic cardiomyopathy s/p ACID placement, HTN, HLD, Hx CVA, HTN, HLD, Seizure disorder, Diabetes mellitus type II, Liver Cirrhosis with ascites, PAF/Flutter, Asthma who presents to the [facility] ED on 05/25/20 with history of onset of chest discomfort following getting up to use the restroom described as a midsternal chest tightness with mild nausea without emesis and diaphoresis with associated dyspnea prompting him to call EMS with self administration of aspirin therapy as well as nitroglycerin with resolution of pain upon ED arrival. 1. Chest Pain: EKG in ED paced without acute evidence of ischemia, CXR w/ acute cardiopulmonary findings, initial trop 0.058 similar to prior with repeat 0.053. Will admit to PCU, place on a monitored bed to assure no acute myocardial infarction with serial cardiac enzymes and EKGs. Patient status post recent cardiac catheterization 10/10/2019. Given patient's complicated history will request continuation of cardiology consultation initiated per ED, Dr. Cherry. Device interrogation requested. ASA, NG, morphine. 2. Persistent AF/Flutter: We will continue patient home regimen apixaban, metoprolol, sotalol regimen. Patient status post recent elective outpatient cardioversion on 05/05/2020, echocardiogram at that time with EF 20 to 25%. 3. CAD: Status post prior thrombectomy distal ramus 10/10/2019 added on repeat cardiac catheterization with end STEMI presentation, continued on apixaban, metoprolol, statin therapy. Last [facility] catheterization noted 08/31/2019 with angiographically normal coronary arteries, EF 20%, depressed LV systolic function. 4. Hypertension: Continue home regimen including Bumex, lisinopril, metoprolol, spironolactone, PRN hydralazine. 5. Hyperlipidemia: Continue home statin regimen. AM FLP. 6. Diabetes mellitus type II: Hold oral home regimen, continue home insulin regimen, ADA diet, accu checks w/ ISS. 7. Chronic CHF, systolic and diastolic/nonischemic cardiomyopathy: s/p AICD placement, will continue home apixaban, Bumex, lisinopril, metoprolol, spironolactone, statin therapies. 8. History symptomatic NSVT, bradycardia: Noted on 10/2019 admission requiring transition to [facility] following attempted cardiac catheterization, now status post AICD/pacemaker placement at [facility]. 9. GERD: We will continue patient home omeprazole regimen. 10. Hx Prior Brain tumor with Seizure disorder: S/P tumor resection, will continue patient home topiramate regimen. 11. History CVA: We will continue patient apixaban, statin, hypertensive and diabetic regimens. 12. Liver cirrhosis: 04/25/2020 hepatitis panel negative, continued on metoprolol, spironolactone therapies. 13. Chronic asthma: We will maintain on PRN albuterol, encourage head of bed, I-S parameters. 14. ALBINO: Continue home CPAP nightly. 15. Chronic anemia: Admission hemoglobin 11.6, MCV 81.7 consistent with normocytic although has been microcytic in the past, prior 11-12, stable, trend. 16. DVT prophylaxis: SCDs, apixaban. 17. CODE status: Patient ARVIN is his girlfriend Bob Castro and living will is currently in place. Discussed CODE status at length including difference between FULL code, DNR-CCA and DNR-CC status. Following discussions about the differences in these status, requested full CODE STATUS. Advanced Care Planning Face to Face Time: 16 minutes. OBSV E&M: 47679 Initial observation care L3 Procedures: 58164 Advncd Care Plan 30 Min
--- NOTE | 2020-05-25 05:55 | EKG12_ITS ---
Test Reason : CP Blood Pressure : / mmHG Vent. Rate : 070 BPM Atrial Rate : 070 BPM P-R Int : 182 ms QRS Dur : 166 ms QT Int : 496 ms P-R-T Axes : 054 200 121 degrees QTc Int : 535 ms AV dual-paced rhythm with occasional ventricular-paced complexes Biventricular pacemaker detected Abnormal ECG Confirmed by TASIA BUSTILLO, JONNATHAN ([id number]), news video editor ISREAL HORTON ([id number]) on 05/28/2020 8:56:06 AM Referred By: Mary Leonard Confirmed By:JONNATHAN DOZIER MD
[2020-05-25 06:33] LABS: Cholesterol 84 mg/dL (200); High Density Lipoprotein 23 mg/dL; Magnesium 1.9 mg/dL (1.6-2.6); Triglycerides 86 mg/dL; Very Low Density Lipoprotein 17 mg/dL (5-40)
[2020-05-25] MEDS: Insulin Lispro 100 UNIT/ML INSULN.PEN SC ×4 (06:55→21:15)
--- NOTE | 2020-05-25 08:42 | CCHN_ITS ---
Hospitalist Note Seen and examined This 69-year-old gentleman with history of coronary artery disease status post thrombectomy distal ramus in October 2019, chronic systolic and diastolic heart failure, nonischemic cardiomyopathy status post AICD other comorbidities including decompensated cirrhosis with ascites was admitted with chest discomfort that started yesterday while he was watching TV. This was associated with mild shortness of breath, diaphoresis, nausea and improved after sublingual nitro given by EMS. Patient did not have chest pain in the morning but complained of chest pain 7/10. Repeat EKG showed paced rhythm with no change from previous EKGs. Serial troponins is elevated flat and intermittent in range of 0.05. General: Alert, Oriented x3, Cooperative HEENT: Atraumatic, PERRLA, EOMI, Normocephalic Oral: No Gingival or Mucosal Lesions/ Ulcerations Neck: Supple, No JVD, Negative Carotid Bruits Lungs: Air entry diminished in bilateral lung bases. No crepitation/rhonchi. Cardiovascular: Regular rate, Regular Rhythm, Normal S1, Normal S2, systolic murmur over aortic area, left lower sternal border and mitral area. AICD pre sent Abdomen: Bowel Sounds Present, Soft, Non Tender, Non-Distended : No renal angle tenderness. No suprapubic tenderness. Extremities: No edema, Capillary Refill Less than 3 Seconds Skin: No rashes, No breakdown Musculoskeletal: No Tenderness to Palpation of Joints or Extremities Neurological: Cranial nerves II-XII grossly intact, Deep Tendon Reflexes 2+/4 and Symmetrical, Neuro grossly intact Psych/Mental Status: Normal Affect, Appropriate The patient had a heart cath in August 2019 which shows normal coronary arteries but elevated right heart pressure. Echo in May 05, 2020: Normal LV size The estimated ejection fraction is 20 %. Patient had pacemaker interrogation today showed proximal A. fib less than 3 seconds. No ventricular tachycardia or AICD discharge. library monitor showed atrial sensed ventricular paced rhythm K was elevated 5.4. Patient on metoprolol, aspirin, lisinopril, sotalol and statin. Home medication reconciliation
[2020-05-25] MEDS: APIXABAN 5 MG TABLET PO ×2 (09:43→21:14)
[2020-05-25] MEDS: Topiramate 25 MG Tablet PO ×2 (09:43→21:14)
[2020-05-25] MEDS: Pantoprazole Sodium 20 MG Tablet PO ×2 (09:43→21:14)
[2020-05-25] MEDS: Spironolactone 25 MG Tablet PO (09:43)
[2020-05-25] MEDS: Sotalol Hydrochloride 80 MG Tablet 120 MG PO ×2 (09:43→21:14)
[2020-05-25] MEDS: Lisinopril 40 MG Tablet PO (09:43)
[2020-05-25] MEDS: Metoprolol(XL)Succ 50 MG Tablet PO (09:44)
[2020-05-25] MEDS: Bumetanide 2 MG Tablet 1 MG PO ×2 (09:45→21:13)
[2020-05-25 10:18] LABS: Anion Gap 5 (5-15); BUN 27 mg/dL (7-18); BUN/Creat Ratio 24.8 RATIO (10-20); Calcium,Total 8.6 mg/dL (8.5-10.1); Chloride 113 mmol/L (98-107); Creatinine, Serum 1.09 mg/dL (0.70-1.30); EST Glomerular Filtration Rate 72 mL/min (>60); Est Glom Filt Rate - Afr Amer 87 mL/min (>60); Estimated Creatinine Clearance 65.76 ml/min; Glucose 178 mg/dL (74-106); Potassium 4.2 mmol/L (3.5-5.1); Sodium Level 141 mmol/L (136-145)
--- NOTE | 2020-05-25 11:13 | EKG12_ITS ---
Test Reason : CP Blood Pressure : / mmHG Vent. Rate : 070 BPM Atrial Rate : 070 BPM P-R Int : 180 ms QRS Dur : 178 ms QT Int : 496 ms P-R-T Axes : 118 197 096 degrees QTc Int : 535 ms AV dual-paced rhythm Biventricular pacemaker detected Abnormal ECG Confirmed by HOWARD BUSTILLO, BRADY ([id number]), senior technical editor ISREAL HORTON ([id number]) on 05/27/2020 9:29:51 AM Referred By: Mary Leonard Confirmed By:BRADY LAWRENCE MD
[2020-05-25] MEDS: Nitroglycerin (INPATIENT USE) 0.4 MG TAB.SUBL SUBLINGUAL (11:26)
--- NOTE | 2020-05-25 13:10 | PCM.CONS.C ---
Problem List (1) Chest pain Status: Acute Qualifiers: Chest pain type: unspecified Qualified Code(s): R07.9 - Chest pain, unspecified Reason for Consult Date of Consultation: 05/25/20 Reason for Consultation: Recurrence of chest pain History of Present Illness: The patient is a 69 year old M [] Woke up early this morning to go the bathroom and developed left-sided substernal chest pain with shortness of breath and diaphoresis. He took 1 nitroglycerin and the pain went away in 30 minutes. After admission he had another episodes of chest pain and relieved promptly by nitroglycerin. 3 sets of EKG were performed with or without chest pain. It showed sinus rhythm with biventricular pacing with no acute ischemic changes. His cardiac history dates back to October 2019. At that time patient was admitted for non-STEMI. Cardiac catheterization at that time showed occluded distal secondary branches of the ramus. Recent echocardiogram showed ejection fraction of 20%. Right ventricular function was normal. Patient had biventricular ICD implanted November 2019. Interrogation today showed paroxysmal atrial fibrillation lasting less than 3 seconds. There was no ventricular tachycardia or any discharge. Patient has been taking sotalol 120 mg twice a day and Eliquis. Patient had cardioversion in April of this year. Since then patient has been in normal sinus rhythm. He is known to have hypertension, diabetes and hyperlipidemia. He is using CPAP for sleep apnea at home. He was a heavy smoker and quit many years ago. He is a nondrinker. Biopsy at [facility] of the liver showed no evidence of cirrhosis. In the good day, [facility] with no difficulty. Past Medical History Allergies/Adverse Reactions: Allergies No Known Allergies Allergy (Verified 05/25/20 01:10) Home Medications: Ambulatory Orders Medication Instructions Recorded Albuterol Sulfate [Ventolin Hfa] 2 puff INHALATION Q6H PRN PRN 10/30/18 Insulin Glargine,Hum.rec.anlog 10 unit SQ QHS 10/30/18 [Krish Alvarez U-100] Lisinopril 40 mg PO DAILY 10/30/18 Omeprazole 20 mg PO BID 10/30/18 Pravastatin Sodium 20 mg PO DAILY 10/30/18 Topiramate 25 mg PO BID 10/30/18 bumetanide 1 mg tablet 1 - 2 mg PO BID tab 04/17/19 metoprolol succinate 50 mg 50 mg PO DAILY #30 tab 04/07/20 tablet,extended release 24 hr apixaban 5 mg tablet 5 mg PO BID #180 tab 05/12/20 sotalol 120 mg tablet 120 mg PO BID #180 tab 05/13/20 Metformin HCl [Glucophage Xr] 1,000 mg PO DAILY 90 Days #360 tab 05/25/20 Senna/Docusate Sodium [Senokot-S] 2 tab PO BID PRN PRN tab 05/25/20 Spironolactone 25 mg PO DAILY #0 05/25/20 Past Medical History (Chronic Problems): Chronic Problems (Last Reviewed 03/05/20 @ 09:28 by Christine Reynolds) Diabetes mellitus, type II (Chronic) ALBINO (obstructive sleep apnea) (Chronic) Seizure disorder (Chronic) History of CVA (cerebrovascular accident) (Chronic) Cirrhosis of liver (Chronic) Longstanding persistent atrial fibrillation (Chronic) Nonischemic cardiomyopathy (Chronic) Biventricular ICD (implantable cardioverter-defibrillator) in place (Chronic 10/12/19) Right ventricular systolic dysfunction (Chronic) 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 Psychiatric History: No pertinent psych hx - *Family History Maternal Family History: Family History (Last Reviewed 03/05/20 @ 09:28 by Christine Reynolds) Daughter Heart disease History Items: Stroke Paternal Family History: Family History (Last Reviewed 03/05/20 @ 09:28 by Christine Reynolds) Daughter Heart disease History Items: Heart Disease Offspring Family History: Family History (Last Reviewed 03/05/20 @ 09:28 by Christine Reynolds) Daughter Heart disease History Items: Heart Disease - Valvular heart disease s/p repair, CHF. Lives: Alone Smoking Status: Former smoker Tobacco Use: Non-smoker Alcohol: None Drugs: None Review of Systems - Review of Systems General: Denies: Fever, Night Sweats, Fatigue Cardiovascular: Reports: Chest Discomfort, Shortness of Breath Respiratory: Denies: Cough, Sputum Production, Hemoptysis Gastrointestinal: Reports: Heart Burn Neurological: Reports: History of CVA Objective: Vital Signs Temp Pulse Resp BP Pulse Ox 98.2 F 70 24 H 129/93 H 99 05/25/20 09:40 05/25/20 10:55 05/25/20 10:55 05/25/20 10:55 05/25/20 11:00 Oxygen Flow Rate (L/min) 1 Oxygen Delivery Method Nasal Cannula Weight: 176 lb 4.8 oz Body Mass Index (BMI) 26.0 Finger Stick Blood Glucose 173 Intake and Output for Last 24 Hours 05/23/20 05/24/20 05/25/20 23:59 23:59 23:59 Intake Total 600 / 600 Balance 600 / 600 General: Awake, Alert, Oriented x 3 HEENT: Normocephalic Neck: Supple Lungs: Clear to auscultation Cardiovascular: Regular Rhythm - 2/6 harsh systolic murmur best heard at the base of the heart Abdomen: Bowel Sounds Present, Soft, Non Tender, No HSM Extremities: Bilateral Edema +1 Neurological: No Focal Motor or Sensory Deficit Psych/Mental Status: Appropriate, Normal Affect 05/25/20 01:15: WBC 7.4, RBC 4.71, Hgb 11.6 L, Hct 38.5 L, MCV 81.7, MCH 24.6 L, MCHC 30.1 L, Plt Count 136 L, Immature Gran % (Auto) 0.400, Neut % (Auto) 80.1 H, Lymph % (Auto) 7.0 L, [place] % (Auto) 8.4, Eos % (Auto) 3.6, Baso % (Auto) 0.5, Absolute Neuts (auto) 5.9, Nucleated RBC % 0 05/25/20 01:15: Sodium 140, Potassium 5.4 H, Chloride 115 H, Carbon Dioxide 22.0, Anion Gap 3 L, BUN 31 H, Creatinine 1.04, Est GFR (MDRD) Af Amer 91, Est GFR (MDRD) Non-Af 76, BUN/Creatinine Ratio 29.8 H, Glucose 183 H, Calcium 8.7, Troponin I 0.055 H 05/25/20 01:15: B-Natriuretic Peptide 538.1 H 05/25/20 03:15: Troponin I 0.053 H 05/25/20 03:15: Magnesium 1.9, Triglycerides 86, Cholesterol 84, LDL Cholesterol 44, VLDL Cholesterol 17, HDL Cholesterol 23 L 05/25/20 06:21: Troponin I 0.048 H 05/25/20 09:55: Sodium 141, Potassium 4.2, Chloride 113 H, Carbon Dioxide 23.0, Anion Gap 5, BUN 27 H, Creatinine 1.09, Est GFR (MDRD) Af Amer 87, Est GFR (MDRD) Non-Af 72, BUN/Creatinine Ratio 24.8 H, Glucose 178 H, Calcium 8.6 05/25/20 11:24: Troponin I 0.057 H Rhythm: EKG: ECHO: Stress Test: Cardiac Cath: PCI: CT Surgery: Holter monitor: EPS: PPM: CXR: Chest CT Scan: Assessment/Plan #1 recurrence of chest pain similar to the pain that he had in October when he had the non-STEMI. However at this time there was no enzyme changes. His troponin has always been mildly elevated except in October. Cardiac catheterization basically showed nonischemic dilated cardiomyopathy with branch disease of the ramus. EKG with or without chest pain showed no acute ST segment changes. I would be inclined to treat this medically. Baby aspirin a day will be added together with Imdur 60 mg daily #2 hypertension, diabetes and hyperlipidemia #3 sleep apnea using CPAP at home #4 biventricular ICD with paroxysmal atrial fibrillation during interrogation today. The durations of the atrial fibrillation is less than 3 seconds. Patient has been on apixaban and sotalol. Continue same medication #5 according to the patient, liver biopsy at [facility] 6 months ago did not show any cirrhosis
[2020-05-25] MEDS: Isosorbide Mononitrate 60 MG Tablet PO (15:45)
[2020-05-25] MEDS: Aspirin 81 MG TAB.CHEW PO (15:45)
[2020-05-25 17:03] LABS: Bedside Glucose 162 mg/dL (70-110)
[2020-05-25 17:03] LABS: Bedside Glucose 171 mg/dL (70-110)
[2020-05-25 17:11] LABS: Bedside Glucose 156 mg/dL (70-110)
[2020-05-25] MEDS: Pravastatin 20 MG Tablet PO (21:14)
[2020-05-25] MEDS: MELATONIN 3 MG TABLET PO (21:17)
[2020-05-26] VITALS (9 sets, daily range): BP systolic 113–124; BP diastolic 69–80; PULSE 69–72; RESP 12–19; TEMP 36.3–36.6; O2SAT 94–100
[2020-05-26 00:01] LABS: Bedside Glucose 159 mg/dL (70-110)
[2020-05-26 06:17] LABS: Absolute Lymphocyte Count 0.63 X10^3/uL (0.83-4.51); Basophil# 0.05 X10^3/uL; Basophil% 0.6 % (0-1); Eosinophil# 0.47 X10^3/uL; Hematocrit 38.2 % (40-54); Hemoglobin 11.6 g/dL (13.0-16.5); Lymphocyte # 0.63 X10^3/ul (4.0); Mean Corp Hgb Conc 30.4 g/dL (32-36); Mean Corpuscular Hgb 24.6 pg (27.0-32.0); Mean Corpuscular Volume 81.1 fL (80-94); Monocyte% 8.9 % (0-10); NRBC Flagged by Analyzer 0 % (0-5); Neutrophil # 5.97 X10^3/uL (2.7-7.7); Neutrophil % 76.1 % (47-70); POSITIVE MORPHOLOGY YES; Platelet Count 131 K/mm3 (150-450); RBC Distribution Width CV 23.6 % (11.6-14.6); RBC Distribution Width SD 68.3 fl (35.1-43.9); Red Blood Count 4.71 M/mm3 (4.6-6.2); White Blood Count 7.9 K/mm3 (4.4-11.0)
[2020-05-26 06:18] LABS: Differential Indicated SCAN CRITERIA MET
[2020-05-26 06:43] LABS: ALB/GLOB Ratio 0.9 RATIO (0.9-2.4); AST(SGOT) 18 U/L (15-37); Alanine Aminotransfer ALT/SGPT 24 U/L (16-61); Albumin, Serum 3.1 g/dL (3.2-5.0); Alkaline Phosphatase 109 U/L (45-117); Anion Gap 5 (5-15); BUN 27 mg/dL (7-18); Calcium,Total 8.6 mg/dL (8.5-10.1); Chloride 112 mmol/L (98-107); Creatinine, Serum 1.04 mg/dL (0.70-1.30); Differential Comment SCANNED; EST Glomerular Filtration Rate 76 mL/min (>60); Est Glom Filt Rate - Afr Amer 91 mL/min (>60); Estimated Creatinine Clearance 68.92 ml/min; Globulin 3.4 g/dL (2.2-4.2); Glucose 120 mg/dL (74-106); Hypochromasia RARE; Microcytosis RARE; Polychromasia RARE; Potassium 3.7 mmol/L (3.5-5.1); Protein, Total 6.5 g/dL (6.4-8.2); Sodium Level 143 mmol/L (136-145)
[2020-05-26 06:51] LABS: Bedside Glucose 116 mg/dL (70-110)
[2020-05-26] MEDS: Aspirin 81 MG TAB.CHEW PO (08:06)
--- NOTE | 2020-05-26 08:13 | PN.CARD_ITS ---
Subjectve: Patient seen and evaluated Objective: Vital Signs Temp Pulse Resp BP Pulse Ox 97.4 F L 70 19 H 124/80 H 99 05/26/20 08:05 05/26/20 08:05 05/26/20 08:05 05/26/20 08:05 05/26/20 08:05 Oxygen Flow Rate (L/min) 2 Oxygen Delivery Method Room Air Weight: 171 lb 15.369 oz Body Mass Index (BMI) 26.0 Finger Stick Blood Glucose 173 Intake and Output for Last 24 Hours 05/24/20 05/25/20 05/26/20 23:59 23:59 23:59 Intake Total 990 / 990 0 / 0 Output Total 900 / 900 650 / 650 Balance 90 / 90 -650 / -650 General: Awake, Alert, Oriented x 3 HEENT: PERRL, EOMI, Sclera Non Icteric Neck: Supple, Good ROM, No Lymph Node Enlargement Lungs: Clear to auscultation Cardiovascular: Regular Rhythm, Normal S1, Normal S2, No Murmurs, No Rubs, No Gallops Vascular: No Carotid Bruits, Normal Femoral Pulses, Normal Radial Pulses, Normal Dorsalis Pedal Pulse, Normal Posterior Tibial Pulses Abdomen: Bowel Sounds Present, Soft, Non Tender, No HSM, No Organomegaly Extremities: No Cyanosis, No Clubbing, No edema Musculoskeletal: No Erythema Skin: No Rashes Neurological: No Focal Motor or Sensory Deficit Psych/Mental Status: Appropriate 05/25/20 09:55: Sodium 141, Potassium 4.2, Chloride 113 H, Carbon Dioxide 23.0, Anion Gap 5, BUN 27 H, Creatinine 1.09, Est GFR (MDRD) Af Amer 87, Est GFR (MDRD) Non-Af 72, BUN/Creatinine Ratio 24.8 H, Glucose 178 H, Calcium 8.6 05/25/20 11:24: Troponin I 0.057 H 05/26/20 05:24: WBC 7.9, RBC 4.71, Hgb 11.6 L, Hct 38.2 L, MCV 81.1, MCH 24.6 L, MCHC 30.4 L, Plt Count 131 L, Immature Gran % (Auto) 0.400, Neut % (Auto) 76.1 H , Lymph % (Auto) 8.0 L, [place] % (Auto) 8.9, Eos % (Auto) 6.0 H, Baso % (Auto) 0.6, Absolute Neuts (auto) 6.0, Nucleated RBC % 0 05/26/ 05:24: Sodium 143, Potassium 3.7, Chloride 112 H, Carbon Dioxide 26.0, Anion Gap 5, BUN 27 H, Creatinine 1.04, Est GFR (MDRD) Af Amer 91, Est GFR (MDRD) Non-Af 76, BUN/Creatinine Ratio 26.0 H, Glucose 120 H, Calcium 8.6, Total Bilirubin 1.30 H Rhythm: EKG: ECHO: Stress Test: Cardiac Cath: PCI: CT Surgery: Holter monitor: EPS: PPM: CXR: Chest CT Scan: Medical Necessity - Tobacco Use Smoking Status: Former smoker Tobacco Use: Non-smoker Assessment/Plan 1. Chest discomfort * The above appears to be atypical. He has had defined coronary artery disease in the past with a small branch of the obtuse marginal branch which was subtotally occluded. At this point in time with the minimally elevated troponin and the no EKG changes and the dissipation of the chest discomfort I do not feel that this needs to be further evaluated. We will continue him on his current medications. The above has been discussed with him and he feels comfortable with his decision. * 2. Nonischemic cardiomyopathy * He does have a history of largely nonischemic cardiomyopathy. We will continue him on his current medical therapy. We will maximize his current medications. * Will review his medications he may be a candidate for Entresto. * Echocardiogram will be repeated in 3 months. * 3. Status post ICD implantation * He does have evidence of previous ICD implantation. This appears to be functioning well it was just checked within the last month. He did undergo optimization under echocardiographic guidance * 4. History of atrial flutter * He appears to be in sinus rhythm at this time with AV sequential pacing. We will repeat his echocardiogram in about 3 months to see whether there is been any improvement. * * At this juncture I think he can be discharged for outpatient follow-up.
[2020-05-26] MEDS: Acetaminophen 325 MG Tablet 650 MG PO (10:11)
[2020-05-26] MEDS: Sotalol Hydrochloride 80 MG Tablet 120 MG PO (10:15)
[2020-05-26] MEDS: Bumetanide 2 MG Tablet 1 MG PO (10:15)
[2020-05-26] MEDS: Spironolactone 25 MG Tablet PO (10:15)
[2020-05-26] MEDS: Topiramate 25 MG Tablet PO (10:16)
[2020-05-26] MEDS: Lisinopril 40 MG Tablet PO (10:16)
[2020-05-26] MEDS: Metoprolol(XL)Succ 50 MG Tablet PO (10:16)
[2020-05-26] MEDS: APIXABAN 5 MG TABLET PO (10:16)
[2020-05-26] MEDS: Isosorbide Mononitrate 60 MG Tablet PO (10:16)
[2020-05-26] MEDS: Pantoprazole Sodium 20 MG Tablet PO (10:16)
--- NOTE | 2020-05-26 10:35 | CASEMGMT ---
Intro role of CM to patient and BERNAL form explained re: Observation status for treatment of chest pain. Explained hospitalization will be paid per? insurance policy for Outpatient billing?and condition will continue to be evaluated for Inpt necessity. Also let pt know that [facility] sends paper in the billing packet with their phone number if questions arise. Discussed Pharmacy section of BERNAL form and self administered medication guideline.? Pt verbalizes understanding and does not have further questions. Form signed and placed in chart, copy to pt. MAUREEN WINSTON BSN CM
--- NOTE | 2020-05-26 10:48 | DCINST_ITS ---
- Discharge Diagnoses Current Active Problems: Current Active and Chronic Problems (Last Reviewed 03/05/20 @ 09:28 by Christine Reynolds) Chest pain (Acute) Diabetes mellitus, type II (Chronic) ALBINO (obstructive sleep apnea) (Chronic) Seizure disorder (Chronic) History of CVA (cerebrovascular accident) (Chronic) Cirrhosis of liver (Chronic) Reason(s) for Visit for Discharge Instructions: Chest pain You will use the following diet at home:: Calorie/Carbohydrate Controlled (specify 1200, 1400, etc) - 1800, Cardiac Your food should be the consistency of: Regular Your liquids should be the consistency of: Regular/Thin Discharge Activity: Return to Normal Activity Additional Instructions: Continue to take all your medications. Follow-up with Dr. Gonzáles as scheduled. Allergies/Adverse Reactions: Allergies No Known Allergies Allergy (Verified 05/25/20 01:10) Medications to take at Discharge Albuterol Sulfate [Ventolin Hfa] 2 puff INHALATION Q6H PRN PRN 10/30/18 Insulin Glargine,Hum.rec.anlog [Krish Alvarez U-100] 10 unit SQ QHS 10/30/18 Lisinopril 40 mg PO DAILY 10/30/18 Omeprazole 20 mg PO BID 10/30/18 Pravastatin Sodium 20 mg PO DAILY 10/30/18 Topiramate 25 mg PO BID 10/30/18 bumetanide 1 mg tablet 1 - 2 mg PO BID tab 04/17/19 metoprolol succinate 50 mg tablet,extended release 24 hr 50 mg PO DAILY #30 tab 04/07/20 apixaban 5 mg tablet 5 mg PO BID #180 tab 05/12/20 sotalol 120 mg tablet 120 mg PO BID #180 tab 05/13/20 Metformin HCl [Glucophage Xr] 1,000 mg PO DAILY 90 Days #360 tab 05/25/20 Senna/Docusate Sodium [Senokot-S] 2 tab PO BID PRN PRN tab 05/25/20 Aspirin [Aspirin, Baby] 81 mg PO DAILY@0800 30 Days #30 tab.chew 05/26/20 Isosorbide Mononitrate [Imdur] 60 mg PO DAILY 30 Days #30 tab 05/26/20 Spironolactone 25 mg PO DAILY #0 05/26/20 The following prescriptions were given: Aspirin [Aspirin, Baby] 81 mg PO DAILY@0800 30 Days #30 tab.chew Transmission Status: Pending to [id number] Isosorbide Mononitrate [Imdur] 60 mg PO DAILY 30 Days #30 tab Transmission Status: Pending to [id number] Primary Care Physician: Pratibha Canales MD [Primary Care Provider] - Please follow up with your Primary Care Physician in: within 1-2 weeks Test Results: Test results from this visit will be discussed in further detail at your follow- up appointment, if applicable. Please Follow Up With: Cosme Gonzáles MD Proposed Discharge Date: 05/26/20
--- NOTE | 2020-05-26 10:51 | PCM.DC.SUM ---
Discharge Date and Diagnosis Date of Admission: 05/25/20 Date of Discharge: 05/26/20 - Primary Discharge Diagnosis Acute Problems: Active Problems (Last Reviewed 03/05/20 @ 09:28 by Christine Reynolds) Chest pain (Acute) - Secondary Discharge Diagnosis Chronic Problems: Chronic Problems (Last Reviewed 03/05/20 @ 09:28 by Christine Reynolds) Diabetes mellitus, type II (Chronic) ALBINO (obstructive sleep apnea) (Chronic) Seizure disorder (Chronic) History of CVA (cerebrovascular accident) (Chronic) Cirrhosis of liver (Chronic) Longstanding persistent atrial fibrillation (Chronic) Nonischemic cardiomyopathy (Chronic) Biventricular ICD (implantable cardioverter-defibrillator) in place (Chronic 10/12/19) Right ventricular systolic dysfunction (Chronic) 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 Electronically Signed: Freeman Cisneros MD at 2:14 EDT , Service support , Cardiology Operations: None Procedures: None Summary of Care Provided: The patient is a 69 year old M with PMHx with past medical history of the full comorbidities including type II DM, seizure disorder, ALBINO, history of CVA, history of CAD, status post biventricular ICD placement, chronic combined CHF, EF 20%, who comes in with complaints of chest pain. Pain was described as left-sided, substernal, associated shortness of breath and diaphoresis. This initially was relieved by nitroglycerin after 30 minutes. He had EKG done that was unremarkable. It showed no acute ST-T change. His vitals were stable. And has had subsequent chest pain that is relieved by nitroglycerin. Cardiology was consulted and recommended medical management. He was continued on baby aspirin and indoor as well as the rest of his medication including metoprolol, pravastatin, sotalol, and apixaban. Subjective: On the day of discharge, patient was seen and examined. Denied any chest pain. No acute events overnight. - Physical Exam Vitals/I&O's: Vital Signs Temp Pulse Resp BP Pulse Ox 97.4 F L 69 19 H 120/69 99 05/26/20 08:05 05/26/20 10:16 05/26/20 08:05 05/26/20 10:16 05/26/20 08:05 Oxygen Flow Rate (L/min) 2 Oxygen Delivery Method Room Air Weight: 78 kg Body Mass Index (BMI) 26.0 Finger Stick Blood Glucose 173 Intake and Output for Last 24 Hours 05/24/20 05/25/20 05/26/20 23:59 23:59 23:59 Intake Total 990 / 990 0 / 0 Output Total 900 / 900 650 / 650 Balance 90 / 90 -650 / -650 General: Alert, Oriented x3, Cooperative, No apparent distress HEENT: Atraumatic, PERRLA, EOMI, Normocephalic Oral: Moist Mucosa Neck: Supple Lungs: Clear to auscultation, Normal air movement Cardiovascular: Regular rate, Regular Rhythm, Normal S1, Normal S2, No murmurs Abdomen: Bowel Sounds Present, Soft, Non Tender, Non-Distended, No Hepato-splenomegaly Extremities: No edema Skin: No rashes, No breakdown Musculoskeletal: No Tenderness to Palpation of Joints or Extremities Lymphatic: No Cervical, Supraclavicular, or Inguinal Adenopathy Neurological: Cranial nerves II-XII grossly intact, Neuro grossly intact Psych/Mental Status: Normal Affect, Appropriate Laboratory Results 05/25/20 06:42: POC Glucose 162 H 05/25/20 11:24: Troponin I 0.057 H 05/25/20 11:29: POC Glucose 171 H 05/25/20 16:57: POC Glucose 156 H 05/25/20 21:09: POC Glucose 159 H 05/26/20 05:24: WBC 7.9, RBC 4.71, Hgb 11.6 L, Hct 38.2 L, MCV 81.1, MCH 24.6 L, MCHC 30.4 L, RDW Std Deviation 68.3 H, RDW Coeff of Yonathan 23.6 H, Plt Count 131 L, Immature Gran % (Auto) 0.400, Neut % (Auto) 76.1 H, Lymph % (Auto) 8.0 L, Gilliam % (Auto) 8.9, Eos % (Auto) 6.0 H, Baso % (Auto) 0.6, Absolute Neuts (auto) 6.0, Absolute Lymphs (auto) 0.63 L, Nucleated RBC % 0, Differential Comment SCANNED, Polychromasia RARE, Hypochromasia RARE, Microcytosis RARE 05/26/20 05:24: Sodium 143, Potassium 3.7, Chloride 112 H, Carbon Dioxide 26.0, Anion Gap 5, BUN 27 H, Creatinine 1.04, Estim Creat Clear Calc 68.92, Est GFR (MDRD) Af Amer 91, Est GFR (MDRD) Non-Af 76, BUN/Creatinine Ratio 26.0 H, Glucose 120 H, Calcium 8.6, Total Bilirubin 1.30 H, AST 18, ALT 24, Alkaline Phosphatase 109, Total Protein 6.5, Albumin 3.1 L, Globulin 3.4, Albumin/Globulin Ratio 0.9 05/26/20 06:39: POC Glucose 116 H Current Medications Acetaminophen (Tylenol) 650 mg PO Q6H PRN PRN PRN Reason: Pain Score 1-10/Temp > 100.7 F Last Admin: 05/26/20 10:11 Dose: 650 mg Documented by: Al Hydroxide/Mg Hydroxide (Mylanta Ii) 30 ml PO Q6H PRN PRN PRN Reason: Gastric Burning Albuterol Sulfate (Ventolin Aerosols) 2.5 mg INHALATION Q2H PRN PRN PRN Reason: Dyspnea, wheezing Apixaban (Eliquis) 5 mg PO BID [facility] Last Admin: 05/26/20 10:16 Dose: 5 mg Documented by: Aspirin (Aspirin, Baby) 81 mg PO DAILY@0800 [facility] Last Admin: 05/26/20 08:06 Dose: 81 mg Documented by: Bumetanide (Bumex) 1 mg PO BID [facility] Last Admin: 05/26/20 10:15 Dose: 1 mg Documented by: Dextrose (D50w Syringe) 0 gm IV X1 PRN; Protocol PRN Reason: Hypoglycemia Glucagon () 1 mg IM .X1 PRN PRN Reason: Hypoglycemia Guaifenesin (Robitussin) 20 ml PO Q4H PRN PRN PRN Reason: COUGH Hydralazine HCl (Apresoline Iv) 10 mg IV Q4H PRN PRN PRN Reason: SBP > 160 Insulin Glargine (Lantus (Bk)) 10 units SC QHS [facility] Last Admin: 05/25/20 21:15 Dose: 10 units Documented by: Insulin Human Lispro (Humalog Kwikpen ([facility])) 0 unit SC [facility]; Protocol Last Admin: 05/26/20 07:48 Dose: Not Given Documented by: Isosorbide Mononitrate (Imdur) 60 mg PO DAILY [facility] Last Admin: 05/26/20 10:16 Dose: 60 mg Documented by: Lisinopril (Zestril) 40 mg PO DAILY [facility] Last Admin: 05/26/20 10:16 Dose: 40 mg Documented by: Magnesium Hydroxide (Milk Of Magnesia) 30 ml PO DAILY PRN PRN PRN Reason: Constipation Melatonin (Melatonin) 3 mg PO QHS PRN PRN PRN Reason: INSOMNIA Last Admin: 05/25/20 21:17 Dose: 3 mg Documented by: Metoprolol Succinate (Toprol Xl (Beta Selwyn)) 50 mg PO DAILY [facility] Last Admin: 05/26/20 10:16 Dose: 50 mg Documented by: Morphine Sulfate () 2 mg IV Q3H PRN PRN PRN Reason: Pain Score 6-10/10 Nitroglycerin (Nitrostat) 0.4 mg SUBLINGUAL Q5M PRN PRN Reason: CARDIAC/CHEST PAIN Last Admin: 05/25/20 11:26 Dose: 0.4 mg Documented by: Ondansetron HCl (Zofran) 4 mg IV Q8H PRN PRN PRN Reason: NAUSEA/VOMITING Oxycodone HCl (Oxyir) 5 mg PO Q4H PRN PRN PRN Reason: Pain Score 4-5/10 Pantoprazole Sodium (Protonix) 20 mg PO BID [facility] Last Admin: 05/26/20 10:16 Dose: 20 mg Documented by: Pravastatin Sodium (Pravachol) 20 mg PO QHS [facility] Last Admin: 05/25/20 21:14 Dose: 20 mg Documented by: Prochlorperazine Edisylate (Compazine Iv) 5 mg IV Q4H PRN PRN PRN Reason: Breakthrough Nausea/Vomiting Psyllium Hydrophilic Mucilloid (Metamucil) 1 packet PO DAILY PRN PRN PRN Reason: Constipation Senna/Docusate Sodium (Senokot-S, Rosaura-Colace) 2 tablet PO BID PRN PRN PRN Reason: Constipation Sodium Chloride () 10 - 40 ml IV UD PRN PRN Reason: SALINE FLUSH Sotalol HCl (Betapace (G)) 120 mg PO BID [facility] Last Admin: 05/26/20 10:15 Dose: 120 mg Documented by: Spironolactone (Aldactone) 25 mg PO DAILY [facility] Last Admin: 05/26/20 10:15 Dose: 25 mg Documented by: Throat Lozenges (Cepacol Sore Throat Lozenge) 1 lozenge MUCOUS MEM Q2H PRN PRN PRN Reason: SORE THROAT Topiramate (Topamax) 25 mg PO BID [facility] Last Admin: 05/26/20 10:16 Dose: 25 mg Documented by: Discharge Diet: Low fat/ Low Cholesterol, 2000 mg Sodium Diet Discharge Activity: Return to Normal Activity Home Medications: Medications to take at Discharge Albuterol Sulfate [Ventolin Hfa] 2 puff INHALATION Q6H PRN PRN 10/30/18 Insulin Glargine,Hum.rec.anlog [Basaglar Kwikpen U-100] 10 unit SQ QHS 10/30/18 Lisinopril 40 mg PO DAILY 10/30/18 Omeprazole 20 mg PO BID 10/30/18 Pravastatin Sodium 20 mg PO DAILY 10/30/18 Topiramate 25 mg PO BID 10/30/18 bumetanide 1 mg tablet 1 - 2 mg PO BID tab 04/17/19 metoprolol succinate 50 mg tablet,extended release 24 hr 50 mg PO DAILY #30 tab 04/07/20 apixaban 5 mg tablet 5 mg PO BID #180 tab 05/12/20 sotalol 120 mg tablet 120 mg PO BID #180 tab 05/13/20 Metformin HCl [Glucophage Xr] 1,000 mg PO DAILY 90 Days #360 tab 05/25/20 Senna/Docusate Sodium [Senokot-S] 2 tab PO BID PRN PRN tab 05/25/20 Aspirin [Aspirin, Baby] 81 mg PO DAILY@0800 30 Days #30 tab.chew 05/26/20 Isosorbide Mononitrate [Imdur] 60 mg PO DAILY 30 Days #30 tab 05/26/20 Spironolactone 25 mg PO DAILY #0 05/26/20 Following Prescrptions Were Given to Patient: Aspirin [Aspirin, Baby] 81 mg PO DAILY@0800 30 Days #30 tab.chew [id number] Isosorbide Mononitrate [Imdur] 60 mg PO DAILY 30 Days #30 tab Transmission Status: [id number] Primary Care Physician: Pratibha Canales MD [Primary Care Provider] - Please follow up with your Primary Care Physician in: within 1-2 weeks Please Follow Up With: Cosme Gonzáles MD When: as scheduled Disposition: Home Minutes spent on discharge:: 40 Patient Condition:: Stable Medical Necessity - Tobacco Use Smoking Status: Former smoker Tobacco Use: Non-smoker Meaningful Use Info Meaningful Use Diagnoses (Choose all that apply): None applicable OBSV E&M: 96079 Observation care discharge
--- NOTE | 2020-05-26 11:25 | PHA.DC.MC ---
Pharmacy Service has performed discharge medication reconciliation and counseling for this patient. The patient was counseled on the following discharge medications and changes in medications for homegoing were reviewed. 1. ASPIRIN 2. IMDUR The Reason for Use, instructions for use, and potential side effects were reviewed for all new medications. The patient's questions regarding all of their medications were answered. The patient was able to verbally demonstrate an understanding of their discharge medications. Home Medications Albuterol Sulfate [Ventolin Hfa] 2 puff INHALATION Q6H PRN PRN 10/30/18 Insulin Glargine,Hum.rec.anlog [Basaglar Kwikpen U-100] 10 unit SQ QHS 10/30/18 Lisinopril 40 mg PO DAILY 10/30/18 Omeprazole 20 mg PO BID 10/30/18 Pravastatin Sodium 20 mg PO DAILY 10/30/18 Topiramate 25 mg PO BID 10/30/18 bumetanide 1 mg tablet 1 - 2 mg PO BID tab 04/17/19 metoprolol succinate 50 mg tablet,extended release 24 hr 50 mg PO DAILY #30 tab 04/07/20 apixaban 5 mg tablet 5 mg PO BID #180 tab 05/12/20 sotalol 120 mg tablet 120 mg PO BID #180 tab 05/13/20 Metformin HCl [Glucophage Xr] 1,000 mg PO DAILY 90 Days #360 tab 05/25/20 Senna/Docusate Sodium [Senokot-S] 2 tab PO BID PRN PRN tab 05/25/20 Aspirin [Aspirin, Baby] 81 mg PO DAILY@0800 30 Days #30 tab.chew 05/26/20 Isosorbide Mononitrate [Imdur] 60 mg PO DAILY 30 Days #30 tab 05/26/20 Spironolactone 25 mg PO DAILY #0 05/26/20 The patient's discharge medication list was reviewed for discrepancies and discrepancies were resolved.
== END 2020-05-26 10:42 | disposition home or self-care (01) ==
LOC: ED 01:46 → PCU 04:51
PROVIDERS: Internal Medicine; Admitting Provider Family Medicine; Emergency Provider Student in an Organized Health Care Education/Training Program; PCP Internal Medicine; Referring Provider Family Medicine; Visit Provider Internal Medicine
DX: R07.89 Other chest pain (principal); E78.5 Hyperlipidemia, unspecified; G47.33 Obstructive sleep apnea (adult) (pediatric); G40.909 Epilepsy, unspecified, not intractable, without status epilepticus; I48.11 Longstanding persistent atrial fibrillation; I25.10 Atherosclerotic heart disease of native coronary artery without angina pectoris; I27.21 Secondary pulmonary arterial hypertension; I42.0 Dilated cardiomyopathy; R11.0 Nausea; E11.9 Type 2 diabetes mellitus without complications; K74.60 Unspecified cirrhosis of liver; I11.0 Hypertensive heart disease with heart failure; I50.42 Chronic combined systolic (congestive) and diastolic (congestive) heart failure; Z95.810 Presence of automatic (implantable) cardiac defibrillator; Z87.891 Personal history of nicotine dependence; Z86.73 Personal history of transient ischemic attack (TIA), and cerebral infarction without residual deficits; Z79.4 Long term (current) use of insulin; Z79.01 Long term (current) use of anticoagulants; Z79.899 Other long term (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; Z79.82 Long term (current) use of aspirin; I25.2 Old myocardial infarction; J45.909 Unspecified asthma, uncomplicated; K21.9 Gastro-esophageal reflux disease without esophagitis; D64.9 Anemia, unspecified
CPT/HCPCS: 36415; 71045; 80048; 80053; 80061; 82962; 83735; 83880; 84484; 85025; 93005; 94002; 94003; 99218; 99251; 99285; A4216; G0378; G0463

== ENCOUNTER 2020-06-19 12:31 | Emergency (ER) | payer MEDICARE, OTHER, SELFPAY ==
[2020-05-25 05:41] VITALS: BMI 26.0
[2020-06-19 12:32] VITALS: BP 132/87; PULSE 70; RESP 16; TEMP 36.8; O2SAT 96; BMI 26.1
--- NOTE | 2020-06-19 13:00 | EKG12_ITS ---
Test Reason : DYSRHYTHMIA Blood Pressure : / mmHG Vent. Rate : 070 BPM Atrial Rate : 070 BPM P-R Int : 180 ms QRS Dur : 168 ms QT Int : 492 ms P-R-T Axes : 000 197 104 degrees QTc Int : 531 ms AV dual-paced rhythm Biventricular pacemaker detected Abnormal ECG Confirmed by JAYMIE DIAS ([id number]), book or script editor BREANA STARK ([id number]) on 06/23/2020 2:13:03 PM Referred By: JOJO Confirmed By:JAYMIE DIAS
--- NOTE | 2020-06-19 13:01 | ED.DCSUM_ITS ---
History of Present Illness Chief Complaint: Dizziness Detail of Chief Complaint: lightheadedness Informant: Patient Onset: Today Context: Sudden Onset - while sitting at his computer at home Timing: Intermittent - x1, Lasts - about 15 min Quality: lightheadedness and weakness Location: all over Current Severity: gone/resolved Maximum Severity: Severe Worsened by: trying to stand up and walk Relieved by: rest Associated Symptoms: none. no cp, sob, palpitations, racing HB, focal neuro sx, headache. Narrative: Patient had no prodromal symptoms. No recent illness, states he has been doing well. 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 He has a pacemaker-defibrillator, and it has never shocked him. He states because he felt weak and lightheaded, he tried to get up and was unable. Therefore he pressed his life alert button, and upon manager commercial sales arrival, his symptoms were completely resolved and he felt back to baseline as he does now. Patient presents during the national coronavirus emergency declaration/pandemic. He denies any known contact with anyone infected with COVID-19. He denies traveling out of the immediate area recently. 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 Smoking Status: Former smoker - Family History Paternal Family History: Family History (Last Reviewed 03/05/20 @ 09:28 by Christine Reynolds) Daughter Heart disease Family History: Reports: Heart Disease Offspring Family History: Family History (Last Reviewed 03/05/20 @ 09:28 by Christine Reynolds) Daughter Heart disease Family History: Reports: Heart Disease - Valvular heart disease s/p repair, CHF. Maternal Family History: Family History (Last Reviewed 03/05/20 @ 09:28 by Christine Reynolds) Daughter Heart disease Family History: Reports: Stroke Review of Systems General: Reports: Malaise - and near-syncope; resolved. Denies: Chills, Fever, Sweats Eyes: Denies: Visual changes - bilaterally, Diplopia ENT: Denies: Bilateral ear pain, Rhinorrhea, Sore throat Cardiovascular: Denies: Chest pain, Palpitations, Heart racing Respiratory: Reports: Dyspnea on exertion - chronic, unchanged. Denies: Dyspnea, Cough Gastrointestinal: Denies: Abdominal pain, Nausea, Vomiting, Diarrhea, Melena, Hematochezia Genitourinary: Denies: Dysuria, Hematuria, Frequency Musculoskeletal: Reports: Swelling - chronic BLE, stable. Denies: Neck pain, Back pain, Extremity Pain Skin: Denies: Rash, Wounds Neurological: Denies: Headache, Weakness, Numbness Physical Exam Vital Signs/Narrative: Vital Signs Temp Pulse Resp BP Pulse Ox 06/19/20 12:32 98.3 F 70 16 132/87 H 96 Inital Vital Signs reviewed: Yes General: Well nourished, Well developed, No Acute Distress Head: Normocephalic, Atraumatic Eyes: Perrl, EOMI ENT: Moist mucous membranes, No rhinorrhea Neck: Supple, Nontender Cardiovascular: Regular rate, Regular rhythm, Murmur - Systolic Respiratory: No distress, Chest nontender, Wheezing - slight expiratory. Negative for: Rales, Rhonchi Abdomen: Soft, Nontender, Nondistended, Normal bowel sounds Back: Nontender, Normal Inspection Extremities: Nontender, Edema - 1-2+ symmetric BLE edema to knees/distal thighs Skin: Normal color, No rash, No Trauma Neurological: Alert, Oriented x3, Cranial nerves II-XII grossly intact, Normal Strength, Normal Sensation, Normal Gait Psychological: Normal affect, Normal Mood Diagnostic/Tx/Re-eval Laboratory Tests 06/19/20 06/19/20 Range/Units 13:19 13:19 WBC 7.5 (4.4-11.0) K/mm3 RBC 5.10 (4.6-6.2) M/mm3 Hgb 12.4 L (13.0-16.5) g/dL Hct 42.1 (40-54) % MCV 82.5 (80-94) fL MCH 24.3 L (27.0-32.0) pg MCHC 29.5 L (32-36) g/dL RDW Std Deviation 67.3 H (35.1-43.9) fl RDW Coeff of Yonathan 22.5 H (11.6-14.6) % Plt Count 188 (150-450) K/mm3 MPV 11.0 (6.2-12.0) fl Immature Gran % (Auto) 0.700 (0.0-0.9) % Neut % (Auto) 78.7 H (47-70) % Lymph % (Auto) 7.4 L (19-41) % Loup % (Auto) 8.8 (0-10) % Eos % (Auto) 3.7 (0-5) % Baso % (Auto) 0.7 (0-1) % Absolute Neuts (auto) 5.9 (2.0-7.7) X10^3/uL Absolute Lymphs (auto) 0.56 L (0.83-4.51) X10^3/uL Nucleated RBC % 0 (0-5) % Differential Comment COMMENT Anisocytosis 1+ Sodium 142 (136-145) mmol/L Potassium 4.3 (3.5-5.1) mmol/L Chloride 111 H (98-107) mmol/L Carbon Dioxide 24.0 (21.0-32.0) mmol/L Anion Gap 7 (5-15) BUN 21 H (7-18) mg/dL Creatinine 1.23 (0.70-1.30) mg/dL Estim Creat Clear Calc 57.48 ml/min Est GFR (MDRD) Af Amer 75 (>60) mL/min Est GFR (MDRD) Non-Af 62 (>60) mL/min BUN/Creatinine Ratio 17.1 (10-20) RATIO Glucose 111 H (74-106) mg/dL Calcium 9.0 (8.5-10.1) mg/dL Troponin I 0.040 (<0.045) ng/mL - Rhythm Strip Rhythm Strip: paced Rate: 70 Ectopy: None - EKG Initial EKG Interpretation: No Acute Injury Pattern, Paced - AV sequential pacing and capture Prior: Unchanged - Medical Decision Making Patient's work-up unremarkable. Mild prerenal azotemia, this may indicate mild dehydration or just simply his congestive heart failure, his last echocardiogram showed an ejection fraction of 20%. Since he is feeling back to normal now, and has had no telemetry events or recurrent symptoms here in emergency department, I do not think he needs IV fluids to treat these numbers. He is on a diuretic, and even if he is a little dry I do not think dehydration because the symptoms which were more suspicious of a dysrhythmia, but unlikely to be a deadly dysrhythmia since he had symptoms for 15 minutes and his defibrillator did not go off, and in addition, had no chest pain or other symptoms. I discussed all this with Dr. Gonzáles, he agrees with allowing the patient to be discharged home and follow-up with him as scheduled tomorrow. Patient is comfortable with that plan as well. ED Disposition - Plan for ED Patient: Disposition: Home or Assisted Living Diagnosis: Near syncope, Nonischemic cardiomyopathy Instructions: ED Near-Fainting Uncertain Cause Referrals: Pratibha Canales MD [Primary Care Provider] - Cosme Gonzáles MD [STAFF PHYSICIAN] - Keep Riya appointment
[2020-06-19 13:26] LABS: Absolute Lymphocyte Count 0.56 X10^3/uL (0.83-4.51); Absolute Neutrophil Count 5.9 X10^3/uL (2.0-7.7); Basophil# 0.05 X10^3/uL; Basophil% 0.7 % (0-1); Eosinophil# 0.28 X10^3/uL; Eosinophils% 3.7 % (0-5); Hematocrit 42.1 % (40-54); Hemoglobin 12.4 g/dL (13.0-16.5); Lymphocyte # 0.56 X10^3/ul (4.0); Lymphocyte % 7.4 % (19-41); Mean Corp Hgb Conc 29.5 g/dL (32-36); Mean Corpuscular Hgb 24.3 pg (27.0-32.0); Mean Corpuscular Volume 82.5 fL (80-94); Monocyte# 0.66 X10^3/uL; Monocyte% 8.8 % (0-10); NRBC Flagged by Analyzer 0 % (0-5); Neutrophil # 5.93 X10^3/uL (2.7-7.7); Neutrophil % 78.7 % (47-70); POSITIVE DIFFERENTIAL YES; POSITIVE MORPHOLOGY YES; Platelet Count 188 K/mm3 (150-450); RBC Distribution Width CV 22.5 % (11.6-14.6); RBC Distribution Width SD 67.3 fl (35.1-43.9); White Blood Count 7.5 K/mm3 (4.4-11.0)
[2020-06-19 13:28] LABS: Differential Indicated SCAN CRITERIA MET
[2020-06-19 13:41] LABS: Anion Gap 7 (5-15); BUN 21 mg/dL (7-18); BUN/Creat Ratio 17.1 RATIO (10-20); Chloride 111 mmol/L (98-107); Creatinine, Serum 1.23 mg/dL (0.70-1.30); EST Glomerular Filtration Rate 62 mL/min (>60); Est Glom Filt Rate - Afr Amer 75 mL/min (>60); Estimated Creatinine Clearance 57.48 ml/min; Glucose 111 mg/dL (74-106); Potassium 4.3 mmol/L (3.5-5.1); Sodium Level 142 mmol/L (136-145)
[2020-06-19 13:56] LABS: Anisocytosis 1+
[2020-06-19 14:50] VITALS: BP 129/85; PULSE 70; RESP 16; O2SAT 98
--- NOTE | 2020-06-19 14:51 | ED.RN ---
pt suffers with frequent incontinence and loss of bowel control. pt has been changed multiple times. he states that I live at home alone. concerns about ability to care for himself where expressed to patient. case management consult offered to patient. he stated i allready have meals on wheels and [facility]. he refused to see case management. barry xie, rn [id number]
== END 2020-06-19 15:45 | disposition home or self-care (01) ==
PROVIDERS: Emergency Provider Emergency Medicine; PCP Internal Medicine
DX: R55 Syncope and collapse (principal); I42.0 Dilated cardiomyopathy; I48.91 Unspecified atrial fibrillation; Z79.01 Long term (current) use of anticoagulants; Z79.84 Long term (current) use of oral hypoglycemic drugs; Z79.82 Long term (current) use of aspirin; Z79.899 Other long term (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; Z87.891 Personal history of nicotine dependence; Z95.810 Presence of automatic (implantable) cardiac defibrillator
CPT/HCPCS: 80048; 84484; 85025; 93005; 99285; A4216

== ENCOUNTER → 2020-11-26 12:04 | Outpatient (CLI) | payer MEDICARE, OTHER, SELFPAY ==
[2020-07-10 13:21] VITALS: BMI 26.5
== END ==
PROVIDERS: PCP Internal Medicine; Referring Provider Internal Medicine Cardiovascular Disease; Visit Provider Internal Medicine Cardiovascular Disease
DX: I42.8 Other cardiomyopathies (principal); I50.42 Chronic combined systolic (congestive) and diastolic (congestive) heart failure; Z95.810 Presence of automatic (implantable) cardiac defibrillator
CPT/HCPCS: 93308; Q9957; A4216; C8924

== ENCOUNTER 2021-01-20 07:05 | Observation (INO) | payer MEDICARE, OTHER, SELFPAY ==
[2020-12-12 12:05] VITALS: BMI 26.1
[2021-01-20] VITALS (12 sets, daily range): BP systolic 113–141; BP diastolic 77–97; PULSE 66–73; RESP 16–26; TEMP 36.4–37; O2SAT 93–100; BMI 27.0; BMI 26.3; BMI 26.4
--- NOTE | 2021-01-20 07:16 | EKG12_ITS ---
Test Reason : SOB Blood Pressure : / mmHG Vent. Rate : 070 BPM Atrial Rate : 084 BPM P-R Int : 000 ms QRS Dur : 180 ms QT Int : 488 ms P-R-T Axes : 000 202 046 degrees QTc Int : 527 ms Ventricular-paced rhythm Biventricular pacemaker detected Abnormal ECG Confirmed by HOWARD BUSTILLO, BRADY ([id number]), business editor ISREAL HORTON ([id number]) on 01/22/2021 12:53:43 PM Referred By: Confirmed By:BRADY LAWRENCE MD
--- NOTE | 2021-01-20 07:17 | ED.DCSUM_ITS ---
History of Present Illness Chief Complaint: Shortness of Breath Informant: Patient Onset: Hours Context: Sudden Onset Timing: Continuous Quality: Abrupt shortness of breath while lying in bed 1 hour prior to presentation Location: Patient's residence in bed Current Severity: Mild Maximum Severity: Moderate Worsened by: Activity Relieved by: Nothing Associated Symptoms: Question PND Narrative: Patient is a 8-year 10-year-old male with multiple medical problems who presents with abrupt onset of shortness of breath. Patient has orthopnea. The orthopnea has not been worse over the past 1 to 2 weeks. He states 1 hour prior to presentation he had abrupt onset of shortness of breath had to sit up. He denied chest discomfort. He does endorse history of atrial fibrillation. He does have a pacemaker and AICD. He denies chest pressure, tightness or heaviness. He denies pleuritic pain. He denies history of PE or DVT. He states he has had recent swelling of his legs. He was unaware that his feet were erythematous. He denies fever, chills or night sweats. He denies headache, visual, ocular auditory symptoms. He denies rhinorrhea, congestion postnasal drainage or sore throat. He does report mild cough when he became abruptly short of breath. He denies abdominal pain, nausea, vomiting or diarrhea. He denies dysuria, frequency, urgency or hematuria. He does have history of type 2 diabetes on insulin. He is on an anticoagulant. He has not noted black or bloody stool. He denies blood in his urine. He denies bleeding from his gums. 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 (6) Chronic combined systolic and diastolic CHF (congestive heart failure) Status: Chronic (7) NSTEMI (non-ST elevated myocardial infarction) Status: Resolved (8) Secondary pulmonary arterial hypertension Status: Chronic (9) Essential (primary) hypertension Status: Chronic (10) History of CVA (cerebrovascular accident) Status: Chronic (11) Hyperlipidemia Status: Chronic Past Medical History - Allergies and Home Meds Allergies/Adverse Reactions: Allergies No Known Allergies Allergy (Verified 01/20/21 07:08) Primary Care Physician: Pratibha Canales MD [Primary Care Provider] - Prior records reviewed: Yes Surgical History: noncontributory, tonsillectomy, - - Biventricular ICD placement, attempted PCI unsuccessful, 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 Lives: Alone Smoking Status: Former smoker Alcohol: None Drugs: None - Family History Paternal Family History: Family History (Last Reviewed 12/12/20 @ 14:[address] Cosme Gonzáles MD) Daughter Heart disease Family History: Reports: Heart Disease Offspring Family History: Family History (Last Reviewed 12/12/20 @ 14:[address] Cosme Gonzáles MD) Daughter Heart disease Family History: Reports: Heart Disease - Valvular heart disease s/p repair, CHF. Maternal Family History: Family History (Last Reviewed 12/12/20 @ 14:[address] Cosme Gonzáles MD) Daughter Heart disease Family History: Reports: Stroke Review of Systems General: Denies: Chills, Fever, Malaise, Subjective, Sweats Eyes: Denies: Visual changes - bilaterally, Blurred Vision - bilaterally ENT: Denies: Bilateral ear pain, Rhinorrhea, Sore throat Cardiovascular: Denies: Chest pain, Palpitations Respiratory: Reports: Dyspnea, Cough, Dyspnea on exertion, Orthopnea - Orthopnea is chronic, Paroxysmal nocturnal dyspnea. Denies: Sputum Gastrointestinal: Denies: Abdominal pain, Nausea, Vomiting, Diarrhea, Melena, Hematochezia Genitourinary: Denies: Dysuria, Hematuria, Frequency Musculoskeletal: Reports: Swelling. Denies: Myalgias, Arthralgias, Neck pain, Back pain, Extremity Pain, -, - Skin: Denies: Rash, Wounds Neurological: Denies: Headache, Weakness, Parasthesia Psych: Reports: Anxiety Endocrine: Denies: Polyuria, Polydipsia Hematologic: Denies: Easy bruising, Easy bleeding Physical Exam Vital Signs/Narrative: Vital Signs Temp Pulse Resp BP Pulse Ox 01/20/21 07:05 97.7 F L 72 26 H 127/97 H 96 Inital Vital Signs reviewed: Yes General: Well nourished, Well developed, Acute Distress Head: Normocephalic, Atraumatic Eyes: Perrl, EOMI. Negative for: Pale conjunctiva, Scleral icterus ENT: Moist mucous membranes, No rhinorrhea Neck: Supple, Nontender, No lymphadenopathy, - - Trachea is midline. There is no inspiratory expiratory stridor.. Negative for: No JVD - There is evidence of JVD and patient is at 80 degrees. Cardiovascular: Regular rate, Regular rhythm, No murmurs Respiratory: Chest nontender, Rales - Rales are noted bilaterally at the bases., Wheezing - There is fine expiratory wheezing noted.. Negative for: No distress, CTA bilaterally Abdomen: Soft, Nontender, Nondistended, Normal bowel sounds, No masses Rectal: Deferred Back: Nontender, Normal Inspection Extremities: Nontender, Edema. Negative for: No edema Skin: Normal color, No Trauma, Rash - Erythema edema to his feet which blanches. There is no induration. There is no lymphangitis. There is no popliteal lymphadenopathy.. Negative for: Cyanosis, Diaphoresis, Jaundice Neurological: Alert, Oriented x3, Cranial nerves II-XII grossly intact, Normal Strength, Normal Sensation Psychological: Normal affect Diagnostic/Tx/Re-eval Chest X-Ray - ED: 1 View - Pacemaker/AICD noted. There is evidence of cardiomegaly. There is increased interstitial markings right side. There may be slight cephalization. There is no curly B-lines noted. We will need to compare to prior x-rays., Read by ED Physician - X-ray was interpreted by me at 0744., Normal, Bony Structures, - - X-ray was compared to May 25, 2020. The x- ray is essentially unchanged. Blood work is remarkable for a troponin of 0.228. Prior troponins have been normal. In light of the fact the patient had abrupt onset of shortness of breath that awoke him from sleep, PND, and an elevated troponin concern patient had cardiac ischemia as the cause. Chest x-ray revealed no evidence of heart failure. BNP is pending. 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 Cosme Gonzáles. He was paged. Patient was informed he will require further testing and admission to the hospital. He received baby aspirin in the department and Nitropaste. Impressions Chest X-Ray 01/20/21 07:33 IMPRESSION: No acute pulmonary process, no interval change Electronically Signed: Tim Guzman MD at 8:16 EDT , Service support , 01/20/21 07:33 Chest 1 View (Portable) [RAD] Stat Laboratory Results 01/20/21 01/20/21 01/20/21 07:15 07:15 07:15 WBC 6.2 RBC 5.00 Hgb 12.2 L Hct 41.3 MCV 82.6 MCH 24.4 L MCHC 29.5 L RDW Std Deviation 70.5 H RDW Coeff of Yonathan 24.1 H Plt Count 134 L Immature Gran % (Auto) 0.300 Neut % (Auto) 76.2 H Lymph % (Auto) 9.[address] [place] % (Auto) 9.6 Eos % (Auto) 3.4 Baso % (Auto) 0.6 Absolute Neuts (auto) 4.7 Absolute Lymphs (auto) 0.61 L Nucleated RBC % 0 Anisocytosis 1+ Specimen Type Sample Site pH Bicarbonate Actual Total CO2 Base Excess O2 Saturation O2 % ABG pCO2 ABG pO2 Anmol Test O2 Delivery Device Sodium Cancelled Potassium Cancelled Chloride Cancelled Carbon Dioxide Cancelled Anion Gap Cancelled BUN Cancelled Creatinine Cancelled Estim Creat Clear Calc Cancelled Est GFR (MDRD) Af Amer Cancelled Est GFR (MDRD) Non-Af Cancelled BUN/Creatinine Ratio Cancelled Glucose Cancelled Calcium Cancelled Troponin I Cancelled B-Natriuretic Peptide 405.0 H 01/20/21 01/20/21 07:37 08:00 WBC RBC Hgb Hct MCV MCH MCHC RDW Std Deviation RDW Coeff of Yonathan Plt Count Immature Gran % (Auto) Neut % (Auto) Lymph % (Auto) [place] % (Auto) Eos % (Auto) Baso % (Auto) Absolute Neuts (auto) Absolute Lymphs (auto) Nucleated RBC % Anisocytosis Specimen Type ART Sample Site L Radial pH 7.41 Bicarbonate Actual 21.5 L Total CO2 23 Base Excess -3 L O2 Saturation 97 O2 % 21 ABG pCO2 33.7 L ABG pO2 88 Anmol Test Positive O2 Delivery Device Room Air Sodium 139 Potassium 5.2 H Chloride 111 H Carbon Dioxide 23.0 Anion Gap 5 BUN 29 H Creatinine 1.24 Estim Creat Clear Calc 57.02 Est GFR (MDRD) Af Amer 74 Est GFR (MDRD) Non-Af 62 BUN/Creatinine Ratio 23.4 H Glucose 154 H Calcium 8.9 Troponin I 0.228 H B-Natriuretic Peptide Troponin is elevated from prior records. BNP is elevated. There is no obvious evidence of heart failure on the chest x-ray. - EKG Initial EKG Interpretation: - - Ventricular paced rhythm rate of 70. It is a biventricular paced rhythm. QRS duration 180 ms. QT duration 488 ms. - Medical Decision Making With abrupt onset of shortness of breath and known cardiac disease this may represent CHF due to cardiac ischemia. If x-ray is unremarkable we will need to entertain possibility of pulmonary embolus. EKG, chest x-ray appropriate labs were obtained. Patient arrived with nonrebreather. Squad reported pulse ox of 90% on nonrebreather. Presently his pulse ox is 93% on room air. He does appear dyspneic. He has conversational dyspnea. Dr. Cosme Gonzáles was paged since patient states he is his certified industrial hygienist. Hospitalist has been paged as well. ED Disposition - Plan for ED Patient: Disposition: Acute Care Hospital [facility] [place] Diagnosis: Dyspnea and respiratory abnormalities, Elevated troponin I level, Acute exacerbation of CHF (congestive heart failure) Referrals: Pratibha Canales MD [Primary Care Provider] -
[2021-01-20 07:31] LABS: Absolute Lymphocyte Count 0.61 X10^3/uL (0.83-4.51); Absolute Neutrophil Count 4.7 X10^3/uL (2.0-7.7); Basophil# 0.04 X10^3/uL; Basophil% 0.6 % (0-1); Eosinophil# 0.21 X10^3/uL; Eosinophils% 3.4 % (0-5); Hematocrit 41.3 % (40-54); Hemoglobin 12.2 g/dL (13.0-16.5); Lymphocyte # 0.61 X10^3/ul (4.0); Lymphocyte % 9.9 % (19-41); Mean Corp Hgb Conc 29.5 g/dL (32-36); Mean Corpuscular Hgb 24.4 pg (27.0-32.0); Mean Corpuscular Volume 82.6 fL (80-94); Monocyte# 0.59 X10^3/uL; Monocyte% 9.6 % (0-10); NRBC Flagged by Analyzer 0 % (0-5); Neutrophil % 76.2 % (47-70); POSITIVE MORPHOLOGY YES; Platelet Count 134 K/mm3 (150-450); RBC Distribution Width CV 24.1 % (11.6-14.6); RBC Distribution Width SD 70.5 fl (35.1-43.9); White Blood Count 6.2 K/mm3 (4.4-11.0)
[2021-01-20 07:32] LABS: Differential Indicated SCAN CRITERIA MET
--- NOTE | 2021-01-20 07:33 | RAD_ITS ---
STUDY: X-RAY CHEST REASON FOR EXAM: Male, 70 years old. Dyspnea, bilateral rales and expiratory wheezing TECHNIQUE: Single AP portable view of the chest. COMPARISON: 05/25/2020 FINDINGS: EKG leads overlie the chest. Stable appearance of a left subclavian pacemaker The lungs are clear and expanded. There is no demonstrated pleural abnormality. Normal size heart. Normal mediastinum and ashly. Normal visualized pulmonary arteries. Normal visualized aortic arch and descending thoracic aorta. There are diffuse degenerative changes of the visualized thoracic spine. There is degenerative osteoarthritis of the bilateral shoulders. There is no demonstrated abnormality of the visualized soft tissue structures of the upper abdomen. RAD/Chest 1 View (Portable) IMPRESSION: No acute pulmonary process, no interval change Electronically Signed: Tim Guzman MD at 8:16 EDT , Service support ,
[2021-01-20 07:52] LABS: Anisocytosis 1+
[2021-01-20 08:03] LABS: Anion Gap 5 (5-15); BUN 29 mg/dL (7-18); BUN/Creat Ratio 23.4 RATIO (10-20); Calcium,Total 8.9 mg/dL (8.5-10.1); Chloride 111 mmol/L (98-107); Creatinine, Serum 1.24 mg/dL (0.70-1.30); EST Glomerular Filtration Rate 62 mL/min (>60); Est Glom Filt Rate - Afr Amer 74 mL/min (>60); Estimated Creatinine Clearance 57.02 ml/min; Glucose 154 mg/dL (74-106); Potassium 5.2 mmol/L (3.5-5.1); Sodium Level 139 mmol/L (136-145)
[2021-01-20 08:06] LABS: Allen Test Positive; Base Excess -3 mmol/L (-2 to +2); Bicarbonate 21.5 mmol/L (22-26); Blood Gas Specimen Type ART; FI02 21; O2 Delivery Device Room Air; PO2 88 mmHG (75-100); SITE L Radial; SO2 97 % (95-99); Total Carbon Dioxide 23 mmol/L; pCO2 33.7 mmHg (35-45); pH 7.41 (7.35-7.45)
[2021-01-20] MEDS: Aspirin 81 MG TAB.CHEW 324 MG PO (09:00)
[2021-01-20] MEDS: Nitroglycerin Oint 1 INCH PACKET TD (09:01)
--- NOTE | 2021-01-20 10:56 | CASEMGMT ---
LW/POA forms both scanned into summary tab of na[facility], Bob Castro is listed as medical POA. SARITA Lozano
--- NOTE | 2021-01-20 16:16 | HP.PCM_ITS ---
History of Present Illness Date of Admission: 01/20/21 Chief Complaint: Shortness of breath The patient is a 70 year old M with PMH as below presents to the hospital with acute onset of shortness of breath this morning. He woke up from sleep with difficulty breathing and presented to the hospital. He denies any chest pain or lightheadedness at this time and is unsure as to what caused it. In the ER he was found to have an elevated troponin to 0.228, which is higher than his baseline of 0.05. His BNP is lower than his baseline and he did not require oxygen at that time. His ABG was essentially normal and he denies any significant shortness of breath and states that he actually feels much better right now. He says that he had to follow-up with a surgeon this coming Tuesday in [place] and so he stopped his diuretics 4 days ago in preparation for making that trip. Past Medical History Past Medical History (Chronic Problems): Chronic Problems (Last Reviewed 12/12/20 @ 14:[address] 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) I45.2 Chronic combined systolic and diastolic CHF (congestive heart failure) (Chronic) I50.42 Atherosclerosis of coronary artery of [place] heart without angina pectoris (Chronic) I25.10 NSTEMI (non-ST elevated myocardial infarction) (Resolved) Onset Date: 10/09/19 I21.4 Secondary pulmonary arterial hypertension (Chronic) I27.21 Essential (primary) hypertension (Chronic) I10 History of CVA (cerebrovascular accident) (Chronic) Z86.73 Hyperlipidemia (Chronic) E78.5 Asthma J45.909 Cholelithiasis K80.20 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, R18.8 Diabetes mellitus, type II E11.9 ALBINO (obstructive sleep apnea) G47.33 Renal adenoma D30.00 Seizure disorder G40.909 Seizure disorder G40.909 Stasis edema of both lower extremities I87.303 Benign brain tumor D33.2 Dyspnea (Resolved) R06.00 Orthopnea (Resolved) R06.01 Syncope Onset Date: 10/2018 R55 Cirrhosis of liver K74.60 Atrial fibrillation and flutter (Inactive) I48.91, I48.92 Near syncope (Inactive) R55 Non-rheumatic tricuspid valve insufficiency (Inactive) I36.1 Allergies No Known Allergies Allergy (Verified 01/20/21 07:08) Home Medications: Ambulatory Orders Medication Instructions Recorded Albuterol Sulfate [Ventolin Hfa] 2 puff INHALATION Q6H PRN PRN 10/30/18 Insulin Glargine,Hum.rec.anlog 10 unit SQ QHS 10/30/18 [Basaglesperanza Alvarez U-100] Lisinopril 40 mg PO DAILY 10/30/18 Omeprazole 20 mg PO BID 10/30/18 Topiramate 25 mg PO BID 10/30/18 apixaban 5 mg tablet 5 mg PO BID #180 tab 05/12/20 Senna/Docusate Sodium [Senokot-S] 2 tab PO BID PRN PRN tab 05/25/20 Spironolactone 25 mg PO DAILY #0 05/26/20 bumetanide 1 mg tablet 3 mg PO DAILY tab 07/10/20 metoprolol succinate 25 mg 25 mg PO DAILY tab 12/12/20 tablet,extended release 24 hr sotalol 80 mg tablet 80 mg PO BID tab 12/12/20 Surgical History: Surgical History (Last Reviewed 12/12/20 @ 14:[address] 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 Psychiatric History: No pertinent psych hx Lives: Alone Smoking Status: Former smoker Tobacco Use: Cigarettes Alcohol: None Drugs: None - *Family History Maternal Family History: Family History (Last Reviewed 12/12/20 @ 14:[address] Cosme Gonzáles MD) Daughter Heart disease History Items: Stroke Paternal Family History: Family History (Last Reviewed 12/12/20 @ 14:[address] Cosme Gonzáles MD) Daughter Heart disease History Items: Heart Disease Offspring Family History: Family History (Last Reviewed 12/12/20 @ 14:[address] Cosme Gonzáles MD) Daughter Heart disease History Items: Heart Disease - Valvular heart disease s/p repair, CHF. Review of Systems Constitutional: Denies: Chills, Fever, Weight Change HEENT: Denies: Head Aches, Sinus Congestion, Sinus Drainage Cardiovascular: Denies: Chest Pain, Palpitations Respiratory: Reports: Shortness of Breath. Denies: Cough, Shortness of breath at rest, Sputum production Gastrointestinal: Denies: Abdominal Pain, Nausea, Vomiting Genitourinary: Denies: Dysuria Musculoskeletal: Denies: Joint Pain, Joint Tenderness Skin: Denies: Rash, Wounds Neurological: Denies: Numbness, Tingling, Focal weakness Psychiatric: Denies: Anxiety, Depression Hematologic/ Lymphatic: Denies: Easy Bruising, Easy Bleeding VTE Information - Inpt Only VTE Present on Admission: No Patient Problems: Active and Suspected Problems (Last Reviewed 12/12/20 @ 14:[address] Cosme Gonzáles MD) Anticoagulant long-term use (Acute) Dyspnea and respiratory abnormalities (Acute) Elevated troponin I level (Acute) - Physical Exam Vitals/I&O's: Vital Signs Temp Pulse Resp BP Pulse Ox 98.1 F 73 24 H 124/82 H 100 01/20/21 14:51 01/20/21 15:09 01/20/21 14:51 01/20/21 14:51 01/20/21 14:51 Oxygen Delivery Method Room Air Weight: 177 lb 14.609 oz Body Mass Index (BMI) 26.3 Finger Stick Blood Glucose 173 Intake and Output for Last 24 Hours 01/18/21 01/19/21 01/20/21 23:59 23:59 23:59 Output Total 200 / 200 Balance -200 / -200 General: Alert, Oriented x3, Cooperative, No apparent distress HEENT: Atraumatic, PERRLA, EOMI, Normocephalic Oral: Moist Mucosa Neck: Supple, No JVD Lungs: Normal air movement, No rhonchi, No wheeze, No rales, Diminished Cardiovascular: Regular rate, Regular Rhythm, Normal S1, Normal S2, No murmurs Abdomen: Soft, Non Tender, No Hepato-splenomegaly, Distended, - - Ascites Extremities: No edema, Capillary Refill Less than 3 Seconds Skin: No rashes, No breakdown Neurological: Neuro grossly intact, Sensory exam intact to light touch and pain Psych/Mental Status: Normal Affect, Appropriate Laboratory Results 01/20/21 07:15: WBC 6.2, RBC 5.00, Hgb 12.2 L, Hct 41.3, MCV 82.6, MCH 24.4 L, MCHC 29.5 L, RDW Std Deviation 70.5 H, RDW Coeff of Yonathan 24.1 H, Plt Count 134 L, Immature Gran % (Auto) 0.300, Neut % (Auto) 76.2 H, Lymph % (Auto) 9.9 L, [place] % (Auto) 9.6, Eos % (Auto) 3.4, Baso % (Auto) 0.6, Absolute Neuts (auto) 4.7, Absolute Lymphs (auto) 0.61 L, Nucleated RBC % 0, Anisocytosis 1+ 01/20/21 07:15: Sodium Cancelled, Potassium Cancelled, Chloride Cancelled, Carbon Dioxide Cancelled, Anion Gap Cancelled, BUN Cancelled, Creatinine Cancelled, Estim Creat Clear Calc Cancelled, Est GFR (MDRD) Af Amer Cancelled, Est GFR (MDRD) Non-Af Cancelled, BUN/Creatinine Ratio Cancelled, Glucose Cancelled, Calcium Cancelled, Troponin I Cancelled 01/20/21 07:15: B-Natriuretic Peptide 405.0 H 01/20/21 07:37: Sodium 139, Potassium 5.2 H, Chloride 111 H, Carbon Dioxide 23.0, Anion Gap 5, BUN 29 H, Creatinine 1.24, Estim Creat Clear Calc 57.02, Est GFR (MDRD) Af Amer 74, Est GFR (MDRD) Non-Af 62, BUN/Creatinine Ratio 23.4 H, Glucose 154 H, Calcium 8.9, Troponin I 0.228 H 01/20/21 08:00: Specimen Type ART, Sample Site L Radial, pH 7.41, Bicarbonate Actual 21.5 L, Total CO2 23, Base Excess -3 L, O2 Saturation 97, O2 % 21, ABG pCO2 33.7 L, ABG pO2 88, Anmol Test Positive, O2 Delivery Device Room Air 01/20/21 10:19: Troponin I 0.208 H 01/20/21 13:00: Troponin I 0.174 H Current Medications Acetaminophen (Acetaminophen 325 Mg Tablet) 650 mg PO Q6H PRN PRN PRN Reason: Pain Score 1-10/Temp > 100.7 F Albuterol Sulfate (Albuterol Sulfate Hfa 6.7 Gm Inhaler (200 Puffs)) 2 puff INHALATION Q6H PRN PRN PRN Reason: SOB &/OR WHEEZING Apixaban (Apixaban 5 Mg Tablet) 5 mg PO BID KATIE Dextrose (Dextrose 50%-Water 25 Gm/50 Ml Disp.Syrin) 0 gm IV X1 PRN; Protocol PRN Reason: Hypoglycemia Glucagon (Glucagon 1 Mg/Ml Syringe) 1 mg IM .X1 PRN PRN Reason: Hypoglycemia Insulin Human Lispro (Insulin Lispro 100 Unit/Ml Insuln.Pen) 0 unit SC ACHS KATIE; Protocol Lisinopril (Lisinopril 40 Mg Tablet) 40 mg PO DAILY KATIE Melatonin (Melatonin 3 Mg Tablet) 3 mg PO QHS PRN PRN PRN Reason: INSOMNIA Metoprolol Succinate (Metoprolol(Xl)Succ 25 Mg Tablet) 25 mg PO DAILY [facility] Nitroglycerin (Nitroglycerin (Inpatient Use) 0.4 Mg Tab.Subl) 0.4 mg SL Q5M PRN PRN Reason: CARDIAC/CHEST PAIN Non-Formulary Medication (Bumetanide) 3 mg PO DAILY [facility] Non-Formulary Medication (Insulin Glargine,Hum.Rec.Anlog) 10 unit SQ QHS [facility] Non-Formulary Medication (Omeprazole) 20 mg PO BID [facility] Ondansetron HCl (Ondansetron 4 Mg/2 Ml Vial) 4 mg IV Q8H PRN PRN PRN Reason: NAUSEA/VOMITING Senna/Docusate Sodium (Senna/Docusate Sodium 1 Tablet) tablet PO BID PRN PRN PRN Reason: Constipation Sodium Chloride (0.9% Saline Lock 10 Ml Syringe) 10 - 40 ml IV UD PRN PRN Reason: SALINE FLUSH Sotalol HCl (Sotalol Hydrochloride 80 Mg Tablet) 80 mg PO BID [facility] Spironolactone (Spironolactone 25 Mg Tablet) 25 mg PO DAILY [facility] Topiramate (Topiramate 25 Mg Tablet) 25 mg PO BID [facility] Assessment/Plan All Active Problems (Last Reviewed 12/12/20 @ 14:[address] Cosme Gonzáles MD) Anticoagulant long-term use (Acute) Dyspnea and respiratory abnormalities (Acute) Elevated troponin I level (Acute) History of percutaneous coronary intervention (Resolved 10/10/19) NSTEMI (non-ST elevated myocardial infarction) (Resolved 10/09/19) Chest pain (Resolved) Chest pain (Resolved) Dyspnea (Resolved) Orthopnea (Resolved) Syncope (Resolved) 1. Acute shortness of breath/A. fib status post AICD/HTN/HLD/CAD status post thrombectomy/pulmonary hypertension/chronic combined CHF -He had an echo in April 2020 with an EF of 20% with a pulmonary artery systolic pressure of 46 mmHg and stage III diastolic dysfunction -Given the severity of his pulmonary artery disease as well as his diastolic dysfunction and his EF of 20% secondary to nonischemic cardiomyopathy, his symptomatology is consistent with the fact that he has not taken his diuretics in 4 days -Troponin is trending down from 0.228 down to 0.174 -We will forego any cardiac intervention, and monitor him overnight -We will resume his diuresis, continue with Eliquis, sotalol, lisinopril, metoprolol -I provided extensive education that his diuretic effect does not last that long and therefore he could discontinue his diuretics on the day of his travel and should likely be able to make the trip just fine -Not currently requiring any O2 2. IDDM 2 -Continue with his home insulin and placement of sliding scale insulin -Accu-Cheks AC at bedtime, will make adjustments as necessary 3. GERD -Stable -Continue with PPI 4. Seizure disorder -Stable -Continue with Topamax DVT: Eliquis OBSV E&M: [id number] Initial observation care L3
[2021-01-20] MEDS: Furosemide 40 MG/4 ML Vial IV (17:27)
[2021-01-20] MEDS: 0.9% Saline Lock 10 ML Syringe IV (17:27)
[2021-01-20 17:36] LABS: Bedside Glucose 198 mg/dL (70-110)
[2021-01-20] MEDS: Sotalol Hydrochloride 80 MG Tablet PO (21:41)
[2021-01-20] MEDS: MELATONIN 3 MG TABLET PO (21:41)
[2021-01-20] MEDS: Topiramate 25 MG Tablet PO (21:41)
[2021-01-20] MEDS: APIXABAN 5 MG TABLET PO (21:41)
[2021-01-20] MEDS: Pantoprazole Sodium 20 MG Tablet PO (21:41)
[2021-01-20 22:20] LABS: Bedside Glucose 152 mg/dL (70-110)
[2021-01-21] MEDS: Acetaminophen 325 MG Tablet 650 MG PO
[2021-01-21 02:59] VITALS: PULSE 72
[2021-01-21 03:30] VITALS: BP 103/72; PULSE 79; RESP 14; TEMP 37.2; O2SAT 99
[2021-01-21 06:04] LABS: Absolute Lymphocyte Count 0.69 X10^3/uL (0.83-4.51); Absolute Neutrophil Count 5.3 X10^3/uL (2.0-7.7); Basophil# 0.05 X10^3/uL; Basophil% 0.7 % (0-1); Eosinophil# 0.25 X10^3/uL; Eosinophils% 3.6 % (0-5); Hematocrit 39.5 % (40-54); Hemoglobin 11.7 g/dL (13.0-16.5); Lymphocyte # 0.69 X10^3/ul (4.0); Mean Corp Hgb Conc 29.6 g/dL (32-36); Mean Corpuscular Hgb 24.2 pg (27.0-32.0); Mean Corpuscular Volume 81.6 fL (80-94); Mean Platelet Vol. 10.8 fl (6.2-12.0); Monocyte# 0.62 X10^3/uL; Monocyte% 8.9 % (0-10); NRBC Flagged by Analyzer 0 % (0-5); Neutrophil % 76.5 % (47-70); POSITIVE MORPHOLOGY YES; Platelet Count 138 K/mm3 (150-450); RBC Distribution Width CV 23.7 % (11.6-14.6); RBC Distribution Width SD 68.2 fl (35.1-43.9); Red Blood Count 4.84 M/mm3 (4.6-6.2); White Blood Count 6.9 K/mm3 (4.4-11.0)
[2021-01-21 06:06] LABS: Differential Indicated SCAN CRITERIA MET
[2021-01-21 06:22] LABS: Anion Gap 6 (5-15); Anisocytosis 1+; BUN 28 mg/dL (7-18); BUN/Creat Ratio 20.9 RATIO (10-20); Calcium,Total 9.2 mg/dL (8.5-10.1); Chloride 111 mmol/L (98-107); Creatinine, Serum 1.34 mg/dL (0.70-1.30); Differential Comment SCANNED; EST Glomerular Filtration Rate 56 mL/min (>60); Est Glom Filt Rate - Afr Amer 68 mL/min (>60); Estimated Creatinine Clearance 51.04 ml/min; Glucose 134 mg/dL (74-106); Potassium 4.4 mmol/L (3.5-5.1); Sodium Level 140 mmol/L (136-145)
[2021-01-21 06:23] LABS: Macrocytosis RARE; Microcytosis 1+
[2021-01-21 06:56] LABS: Bedside Glucose 131 mg/dL (70-110)
[2021-01-21 07:48] VITALS: PULSE 70
--- NOTE | 2021-01-21 09:12 | DCINST_ITS ---
- Discharge Diagnoses Current Active Problems: Current Active and Chronic Problems (Last Reviewed 12/12/20 @ 14:[address] 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 (congestive heart failure) (Chronic) Secondary pulmonary arterial hypertension (Chronic) Essential (primary) hypertension (Chronic) History of CVA (cerebrovascular accident) (Chronic) Hyperlipidemia (Chronic) You will use the following diet at home:: Cardiac, Fluid restricted (specify 2000 mls, 1500 mls) - 1500 Your food should be the consistency of: Regular Your liquids should be the consistency of: Regular/Thin Discharge Activity: Return to Normal Activity Call your doctor if you observe: Fever of 101 or Higher, Shortness of breath, Dizziness, Fainting spells, Swelling in the ankles, Chest pain, Increased palpitations (irregular heartbeat) Allergies/Adverse Reactions: Allergies No Known Allergies Allergy (Verified 01/20/21 07:08) Medications to take at Discharge Albuterol Sulfate [Ventolin Hfa] 2 puff INHALATION Q6H PRN PRN 10/30/18 Insulin Glargine,Hum.rec.anlog [Basaglar Kwikpen U-100] 10 unit SQ QHS 10/30/18 Lisinopril 40 mg PO DAILY 10/30/18 Omeprazole 20 mg PO BID 10/30/18 Topiramate 25 mg PO BID 10/30/18 apixaban 5 mg tablet 5 mg PO BID #180 tab 05/12/20 Senna/Docusate Sodium [Senokot-S] 2 tab PO BID PRN PRN tab 05/25/20 Spironolactone 25 mg PO DAILY #0 05/26/20 bumetanide 1 mg tablet 3 mg PO DAILY tab 07/10/20 metoprolol succinate 25 mg tablet,extended release 24 hr 25 mg PO DAILY tab 12/12/20 sotalol 80 mg tablet 80 mg PO BID tab 12/12/20 Primary Care Physician: Pratibha Canales MD [Primary Care Provider] - Please follow up with your Primary Care Physician in: 3-5 days Test Results: Test results from this visit will be discussed in further detail at your follow- up appointment, if applicable. Please Follow Up With: Cardiology When: As scheduled
--- NOTE | 2021-01-21 09:15 | PCM.DC.SUM ---
Discharge Date and Diagnosis - Problem List Patient Problems: Active and Suspected Problems (Last Reviewed 12/12/20 @ 14:[address] Cosme Gonzáles MD) Anticoagulant long-term use (Acute) Dyspnea and respiratory abnormalities (Acute) Elevated troponin I level (Acute) Date of Admission: 01/20/21 Date of Discharge: 01/21/21 - Primary Discharge Diagnosis Acute Problems: Active Problems (Last Reviewed 12/12/20 @ 14:[address] Cosme Gonzáles MD) Anticoagulant long-term use (Acute) Dyspnea and respiratory abnormalities (Acute) Elevated troponin I level (Acute) - Secondary Discharge Diagnosis Chronic Problems: Chronic Problems (Last Reviewed 12/12/20 @ 14:[address] 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 (congestive heart failure) (Chronic) Atherosclerosis of coronary artery of [place] heart without angina pectoris (Chronic) Secondary pulmonary arterial hypertension (Chronic) Essential (primary) hypertension (Chronic) History of CVA (cerebrovascular accident) (Chronic) Hyperlipidemia (Chronic) Hospital Course and Treatment Imaging Results: Clinical Impression(s) from Imaging Studies Chest X-Ray 01/20/21 07:33 IMPRESSION: No acute pulmonary process, no interval change Electronically Signed: Tim Guzman MD at 8:16 EDT , Service support , Operations: None Procedures: None Summary of Care Provided: Per HPI: The patient is a 70 year old M with PMH as below presents to the hospital with acute onset of shortness of breath this morning. He woke up from sleep with difficulty breathing and presented to the hospital. He denies any chest pain or lightheadedness at this time and is unsure as to what caused it. In the ER he was found to have an elevated troponin to 0.228, which is higher than his baseline of 0.05. His BNP is lower than his baseline and he did not require oxygen at that time. His ABG was essentially normal and he denies any significant shortness of breath and states that he actually feels much better right now. He says that he had to follow-up with a surgeon this coming Tuesday in [place] and so he stopped his diuretics 4 days ago in preparation for making that trip. Hospital Course: 1. Shortness of breath/A. fib status post AICD/HTN/HLD/CAD status post thrombectomy/moderate pulmonary hypertension/chronic combined [id number] male who stopped taking his diuretics on Tuesday in preparation of going to [place] this coming Tuesday. I discussed with him that this is likely why he felt short of breath. His troponins initially were elevated 0.228 and are down to 1.174. He denies any chest pain and feels much better today. He did receive a dose of IV Lasix overnight. He wants to go home today because he has an appointment with a surgeon on Tuesday and his family is coming into town today. I discussed with him that he needs to take his medications as prescribed and he is to follow-up with his PCP in 3 to 5 days. Also need to follow-up with cardiology as previously scheduled. I discussed with him the plan for discharge today and he expressed understanding of the risk benefits of going home and he would like to go home today. 2. Insulin-dependent type 2 diabetes, GERD, seizure disorder all chronic medical conditions which complicate his care. His home medications were continued where appropriate Patient Problems: Active and Suspected Problems (Last Reviewed 12/12/20 @ 14:[address] Cosme Gonzáles MD) Anticoagulant long-term use (Acute) Dyspnea and respiratory abnormalities (Acute) Elevated troponin I level (Acute) - Physical Exam Vitals/I&O's: Vital Signs Temp Pulse Resp BP Pulse Ox 98.9 F 70 14 103/72 99 01/21/21 03:30 01/21/21 07:48 01/21/21 03:30 01/21/21 03:30 01/21/21 03:30 Oxygen Flow Rate (L/min) 1 Oxygen Delivery Method Nasal Cannula Weight: 177 lb 14.609 oz Body Mass Index (BMI) 26.3 Finger Stick Blood Glucose 173 Intake and Output for Last 24 Hours 01/19/21 01/20/21 01/21/21 23:59 23:59 23:59 Intake Total 720 / 720 240 / 240 Output Total 1175 / 1175 400 / 400 Balance -455 / -455 -160 / -160 General: Alert, Oriented x3, Cooperative, No apparent distress HEENT: Atraumatic, PERRLA, EOMI, Normocephalic Oral: Moist Mucosa Neck: Supple, No JVD Lungs: Normal air movement, No rhonchi, No wheeze, No rales, Diminished Cardiovascular: Regular rate, Regular Rhythm, Normal S1, Normal S2, No murmurs Abdomen: Soft, Non Tender, No Hepato-splenomegaly, Distended, - - Ascites Extremities: No edema, Capillary Refill Less than 3 Seconds Skin: No rashes, No breakdown Neurological: Neuro grossly intact, Sensory exam intact to light touch and pain Psych/Mental Status: Normal Affect, Appropriate Laboratory Results 01/20/21 10:19: Troponin I 0.208 H 01/20/21 13:00: Troponin I 0.174 H 01/20/21 17:24: POC Glucose 198 H 01/20/21 21:38: POC Glucose 152 H 01/21/21 05:56: WBC 6.9, RBC 4.84, Hgb 11.7 L, Hct 39.5 L, MCV 81.6, MCH 24.2 L, MCHC 29.6 L, RDW Std Deviation 68.2 H, RDW Coeff of Yonathan 23.7 H, Plt Count 138 L, MPV 10.8, Immature Gran % (Auto) 0.300, Neut % (Auto) 76.5 H, Lymph % (Auto) 10.0 L, [place] % (Auto) 8.9, Eos % (Auto) 3.6, Baso % (Auto) 0.7, Absolute Neuts (auto) 5.3, Absolute Lymphs (auto) 0.69 L, Nucleated RBC % 0, Differential Comment SCANNED, Anisocytosis 1+, Microcytosis 1+, Macrocytosis RARE 01/21/21 05:56: Sodium 140, Potassium 4.4, Chloride 111 H, Carbon Dioxide 23.0, Anion Gap 6, BUN 28 H, Creatinine 1.34 H, Estim Creat Clear Calc 51.04, Est GFR (MDRD) Af Amer 68, Est GFR (MDRD) Non-Af 56 L, BUN/Creatinine Ratio 20.9 H, Glucose 134 H, Calcium 9.2 01/21/21 06:31: POC Glucose 131 H Current Medications Acetaminophen (Acetaminophen 325 Mg Tablet) 650 mg PO Q6H PRN PRN PRN Reason: Pain Score 1-10/Temp > 100.7 F Last Admin: 01/21/21 00:00 Dose: 650 mg Documented by: Albuterol Sulfate (Albuterol 2.5 Mg/3 Ml Vial.Neb.) 2.5 mg INHALATION Q4H PRN PRN PRN Reason: SOB &/OR WHEEZING Apixaban (Apixaban 5 Mg Tablet) 5 mg PO BID [facility] Last Admin: 01/20/21 21:41 Dose: 5 mg Documented by: Bumetanide (Bumetanide 2 Mg Tablet) 3 mg PO DAILY [facility] Dextrose (Dextrose 50%-Water 25 Gm/50 Ml Disp.Syrin) 0 gm IV X1 PRN; Protocol PRN Reason: Hypoglycemia Glucagon (Glucagon 1 Mg/Ml Syringe) 1 mg IM .X1 PRN PRN Reason: Hypoglycemia Insulin Glargine (Insulin Glargine 100 Units/Ml Pen) 10 units SC QHS [facility] Last Admin: 01/20/21 21:41 Dose: 10 unit Documented by: Insulin Human Lispro (Insulin Lispro 100 Unit/Ml Insuln.Pen) 0 unit SC [facility]; Protocol Last Admin: 01/21/21 06:32 Dose: Not Given Documented by: Lisinopril (Lisinopril 40 Mg Tablet) 40 mg PO DAILY [facility] Melatonin (Melatonin 3 Mg Tablet) 3 mg PO QHS PRN PRN PRN Reason: INSOMNIA Last Admin: 01/20/21 21:41 Dose: 3 mg Documented by: Metoprolol Succinate (Metoprolol(Xl)Succ 25 Mg Tablet) 25 mg PO DAILY [facility] Nitroglycerin (Nitroglycerin (Inpatient Use) 0.4 Mg Tab.Subl) 0.4 mg SL Q5M PRN PRN Reason: CARDIAC/CHEST PAIN Ondansetron HCl (Ondansetron 4 Mg/2 Ml Vial) 4 mg IV Q8H PRN PRN PRN Reason: NAUSEA/VOMITING Pantoprazole Sodium (Pantoprazole Sodium 20 Mg Tablet) 20 mg PO BID [facility] Last Admin: 01/20/21 21:41 Dose: 20 mg Documented by: Senna/Docusate Sodium (Senna/Docusate Sodium 1 Tablet) 2 tablet PO BID PRN PRN PRN Reason: Constipation Sodium Chloride (0.9% Saline Lock 10 Ml Syringe) 10 - 40 ml IV UD PRN PRN Reason: SALINE FLUSH Last Admin: 01/20/21 17:27 Dose: 10 ml Documented by: Sotalol HCl (Sotalol Hydrochloride 80 Mg Tablet) 80 mg PO BID [facility] Last Admin: 01/20/21 21:41 Dose: 80 mg Documented by: Spironolactone (Spironolactone 25 Mg Tablet) 25 mg PO DAILY [facility] Topiramate (Topiramate 25 Mg Tablet) 25 mg PO BID [facility] Last Admin: 01/20/21 21:41 Dose: 25 mg Documented by: Discharge Activity: Return to Normal Activity Call your doctor if you observe: Fever of 101 or Higher, Shortness of breath, Dizziness, Fainting spells, Swelling in the ankles, Chest pain, Increased palpitations (irregular heartbeat) Home Medications: Medications to take at Discharge Albuterol Sulfate [Ventolin Hfa] 2 puff INHALATION Q6H PRN PRN 10/30/18 Insulin Glargine,Hum.rec.anlog [Basaglar Kwikpen U-100] 10 unit SQ QHS 10/30/18 Lisinopril 40 mg PO DAILY 10/30/18 Omeprazole 20 mg PO BID 10/30/18 Topiramate 25 mg PO BID 10/30/18 apixaban 5 mg tablet 5 mg PO BID #180 tab 05/12/20 Senna/Docusate Sodium [Senokot-S] 2 tab PO BID PRN PRN tab 05/25/20 Spironolactone 25 mg PO DAILY #0 05/26/20 bumetanide 1 mg tablet 3 mg PO DAILY tab 07/10/20 metoprolol succinate 25 mg tablet,extended release 24 hr 25 mg PO DAILY tab 12/12/20 sotalol 80 mg tablet 80 mg PO BID tab 12/12/20 Primary Care Physician: Pratibha Canales MD [Primary Care Provider] - Please follow up with your Primary Care Physician in: 3-5 days Please Follow Up With: Cardiology When: As scheduled Disposition: Home Minutes spent on discharge:: 35 Patient Condition:: Stable Medical Necessity - Tobacco Use Smoking Status: Former smoker Tobacco Use: Cigarettes Meaningful Use Info Meaningful Use Diagnoses (Choose all that apply): None applicable OBSV E&M: 42381 Observation care discharge
--- NOTE | 2021-01-21 09:19 | PHA.DC.MR ---
Pharmacy Service has performed discharge medication reconciliation for this patient. The patient's discharge medication list was reviewed for discrepancies and discrepancies were resolved. Home Medications Albuterol Sulfate [Ventolin Hfa] 2 puff INHALATION Q6H PRN PRN 10/30/18 Insulin Glargine,Hum.rec.anlog [Basaglar Nickieikbharti U-100] 10 unit SQ QHS 10/30/18 Lisinopril 40 mg PO DAILY 10/30/18 Omeprazole 20 mg PO BID 10/30/18 Topiramate 25 mg PO BID 10/30/18 apixaban 5 mg tablet 5 mg PO BID #180 tab 05/12/20 Senna/Docusate Sodium [Senokot-S] 2 tab PO BID PRN PRN tab 05/25/20 Spironolactone 25 mg PO DAILY #0 05/26/20 bumetanide 1 mg tablet 3 mg PO DAILY tab 07/10/20 metoprolol succinate 25 mg tablet,extended release 24 hr 25 mg PO DAILY tab 12/12/20 sotalol 80 mg tablet 80 mg PO BID tab 12/12/20
[2021-01-21 09:30] VITALS: BP 117/68; PULSE 70; RESP 16; TEMP 36.7; O2SAT 96
[2021-01-21] MEDS: Spironolactone 25 MG Tablet PO (10:01)
[2021-01-21] MEDS: Bumetanide 2 MG Tablet 3 MG PO (10:01)
[2021-01-21] MEDS: APIXABAN 5 MG TABLET PO (10:01)
[2021-01-21] MEDS: Sotalol Hydrochloride 80 MG Tablet PO (10:02)
[2021-01-21] MEDS: Pantoprazole Sodium 20 MG Tablet PO (10:02)
[2021-01-21] MEDS: Lisinopril 40 MG Tablet PO (10:02)
[2021-01-21 10:03] VITALS: BP 114/83; PULSE 69
[2021-01-21] MEDS: Topiramate 25 MG Tablet PO (10:03)
[2021-01-21] MEDS: Metoprolol(XL)Succ 25 MG Tablet PO (10:03)
--- NOTE | 2021-01-21 10:17 | CASEMGMT ---
This RN CM to room with BERNAL form at this time, explanation done-pt voices understanding, and signs BERNAL form at this time. Pt has copy of MCR IP vs OBS booklet at bedside at this time. Original BERNAL to chart and copy to pt at this time. Pt voices no further questions/concerns/needs. [place] TISH BRINK
== END 2021-01-21 09:13 | disposition home or self-care (01) ==
LOC: ED 08:45 → PCU 09:08
PROVIDERS: Admitting Provider Family Medicine; Emergency Provider Emergency Medicine; PCP Internal Medicine; Visit Provider Family Medicine
DX: R06.00 Dyspnea, unspecified (principal); I11.0 Hypertensive heart disease with heart failure; I48.11 Longstanding persistent atrial fibrillation; I25.10 Atherosclerotic heart disease of native coronary artery without angina pectoris; I45.10 Unspecified right bundle-branch block; I50.42 Chronic combined systolic (congestive) and diastolic (congestive) heart failure; E78.5 Hyperlipidemia, unspecified; I27.21 Secondary pulmonary arterial hypertension; E11.9 Type 2 diabetes mellitus without complications; I42.8 Other cardiomyopathies; I25.2 Old myocardial infarction; G47.33 Obstructive sleep apnea (adult) (pediatric); G40.909 Epilepsy, unspecified, not intractable, without status epilepticus; K21.9 Gastro-esophageal reflux disease without esophagitis; Z79.01 Long term (current) use of anticoagulants; Z79.4 Long term (current) use of insulin; Z79.899 Other long term (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; Z86.73 Personal history of transient ischemic attack (TIA), and cerebral infarction without residual deficits; Z95.810 Presence of automatic (implantable) cardiac defibrillator; Z87.891 Personal history of nicotine dependence
CPT/HCPCS: 36415; 36600; 71045; 80048; 82803; 82962; 83880; 84484; 85025; 93005; 96374; 99218; 99285; A4216; G0378; J1940

== ENCOUNTER 2021-03-05 07:17 | Outpatient (RCR) | payer MEDICARE, OTHER, SELFPAY ==
[2021-01-20 09:34] VITALS: BMI 26.3
== END 2021-04-14 23:59 ==
LOC: IMMUN 07:17
PROVIDERS: PCP Internal Medicine; Referring Provider Family Medicine; Visit Provider Family Medicine
DX: Z23 Encounter for immunization (principal)
CPT/HCPCS: 0001A; 0002A; 91300

== ENCOUNTER 2021-08-02 05:34 | Emergency (ER) | payer MEDICARE, OTHER, SELFPAY ==
[2021-08-02 05:34] VITALS: BP 96/64; PULSE 70; RESP 20; TEMP 36.7; BMI 24.8
--- NOTE | 2021-08-02 05:51 | EDS_ITS ---
HPI History of Present Illness Chief Complaint: Hyperglycemia Informant: patient and EMS Narrative Narrative: 71-year-old male called EMS tonight due to hyperglycemia. He tells me that last evening he took his blood sugar and it was just over 500. He states typically his his sugars are between 120 and 220. He takes 10 units of insulin at nighttime. He takes no other pills or shots for diabetes. He states that yesterday for lunch and dinner he had pizza. He notes that he has been urinating more than normal. He states that he feels a little bit lightheaded. He denies any recent infections. [facility] Medical History Ascites Asthma Atherosclerosis of coronary artery of [place] heart without angina pectoris Atrial fibrillation and flutter Benign brain tumor Cholelithiasis Chronic combined systolic and diastolic CHF (congestive heart failure) Cirrhosis of liver Cirrhosis of liver with ascites Diabetes mellitus, type II Essential (primary) hypertension History of CVA (cerebrovascular accident) Hyperlipidemia Longstanding persistent atrial fibrillation Non-rheumatic tricuspid valve insufficiency Nonischemic cardiomyopathy NSTEMI (non-ST elevated myocardial infarction) (10/09/19) ALBINO (obstructive sleep apnea) 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 Right ventricular systolic dysfunction Secondary pulmonary arterial hypertension Seizure disorder Stasis edema of both lower extremities Home Medications albuterol sulfate 2 puff INHALATION Q6H PRN PRN 10/30/18 [History Last Taken 01/31/19] insulin glargine 10 unit SQ QHS 10/30/18 [History Last Taken 01/30/19] omeprazole 20 mg PO BID 10/30/18 [History Last Taken 01/31/19] topiramate 25 mg PO BID 10/30/18 [History Last Taken 01/31/19] spironolactone 25 mg PO DAILY #0 05/26/20 [Rx Last Taken 01/29/19] bumetanide 1 mg tablet 3 mg PO DAILY tab 07/10/20 [History Last Taken Unknown] nadolol 20 mg tablet 10 mg PO DAILY #45 tab 04/15/21 [Rx Last Taken Unknown] apixaban 5 mg tablet 5 mg PO BID #180 tab 04/16/21 [Rx Last Taken Unknown] sotalol 80 mg tablet 80 mg PO BID #180 tab 04/16/21 [Rx Last Taken Unknown] tamsulosin 0.4 mg capsule 0.4 mg PO QHS cap 05/08/21 [History Last Taken Unknown] Allergy/AdvReac Type Severity Reaction Status Date / Time No Known Allergies Allergy Verified 05/08/21 08:50 Family History Daughter Heart disease valve replacement/chf Surgical History Biventricular ICD (implantable cardioverter-defibrillator) in place (10/12/19) H/O excision of tumor of brain meninges (2011) History of cardioversion (05/05/20) History of left heart catheterization (08/31/19) History of percutaneous coronary intervention (10/10/19) History of right and left heart catheterization History of tonsillectomy Social History Smoking Status: Former smoker ROS ROS ED ROS Narrative Lightheadedness Constitutional Constitutional ED: Denies chills or weight loss Eyes Eyes: Denies change in vision or diplopia ENT ENT ED: Denies ear pain, rhinorrhea or sore throat Cardiovascular Cardiovascular: Denies chest pain, orthopnea, palpitations or racing heartbeat Respiratory/Chest Respiratory/Chest: Denies cough, dyspnea or orthopnea Gastrointestinal Gastrointestinal: Denies abdominal pain, diarrhea, nausea or vomiting Genitourinary Genitourinary ED: Reports urinary frequency; Denies dysuria or hematuria Musculoskeletal Musculoskeletal: Denies arthralgias or myalgias Integumentary Denies abscess or rash Neurologic Neurologic: Denies headache(s) or weakness Psychiatric Psychiatric: Denies anxiety, depression, suicidal ideation or suicidal thoughts Endocrine Endocrinology: Denies polydipsia, polyphagia or polyuria Allergic/Immunologic Allergic/Immunologic ED: Denies mouth swelling, tongue swelling or urticaria EXAM Physical Exam Const Vital Signs: 08/02/21 05:34 Temperature 98.1 F Temperature Source Temporal Pulse Rate 70 Respiratory Rate 20 H Blood Pressure 96/64 Blood Pressure Mean 74 Positive well nourished and well developed General Appearance ED: well developed HEENT Reports normocephalic, head/scalp atraumatic and moist mucous membranes Eyes PERRL and EOMs intact bilaterally Neck no lymphadenopathy, supple and no JVD Resp normal respiratory effort and clear to auscultation bilaterally Cardio regular rate, regular rhythm and no murmurs GI normal to inspection, nondistended, normoactive bowel sounds and non-tender Palpation: soft Back/Spine no CVA tenderness and normal ROM Extremity normal to inspection General Extremety ED: Negative for edema General Extremity: Negative for edema Neuro oriented x3 and CN's II-XII intact bilaterally Sensorium / Orientation: alert Motor Exam: strength 5/5 throughout Psych mental status grossly normal Mood & Affect: Negative for depressed or tearful Skin no rashes or lesions noted and no wounds MDM MDM MDM Narrative Medical decision making narrative: White count 9.6. Hemoglobin 12.5. Creatinine elevated 1.76 with a BUN of 30 and this is off of his baseline. Troponin high-sensitivity at 80. Acetone level negative. Urinalysis shows greater than 100 white blood cells 3+ bacteria negative nitrates but positive leukocyte esterase. This was cultured and he received Rocephin. Patient received IV fluids and insulin. Lab Data Attestation: I reviewed the patient's lab results. Labs: Laboratory Results - last 24 hr 08/02/21 08/02/21 08/02/21 04:15 04:15 04:15 WBC 9.6 RBC 3.83 L Hgb 12.5 L Hct 37.4 L MCV 97.7 H MCH 32.6 H MCHC 33.4 RDW Std Deviation 49.9 H RDW Coeff of Yonathan 14.0 Plt Count 148 L MPV 10.9 Immature Gran % (Auto) 0.900 Neut % (Auto) 88.1 H Lymph % (Auto) 4.1 L [place] % (Auto) 6.4 Eos % (Auto) 0.2 Baso % (Auto) 0.3 Absolute Neuts (auto) 8.4 H Absolute Lymphs (auto) 0.39 L Nucleated RBC % 0 Sodium 135 L Potassium 4.0 Chloride 102 Carbon Dioxide 25.0 Anion Gap 8 BUN 30 H Creatinine 1.76 H Estim Creat Clear Calc 39.61 Est GFR (MDRD) Af Amer 50 L Est GFR (MDRD) Non-Af 41 L BUN/Creatinine Ratio 17.0 Glucose 360 H Calcium 9.2 Total Bilirubin 1.40 H AST 35 ALT 54 Alkaline Phosphatase 232 H Troponin I High Sens 80 H Total Protein 7.5 Albumin 2.7 L Globulin 4.8 H Albumin/Globulin Ratio 0.6 L Lipase 30 L Urine Color Urine Clarity Urine pH Ur Specific [place] Urine Protein Urine Glucose (UA) Urine Ketones Urine Occult Blood Urine Nitrite Urine Bilirubin Urine Urobilinogen Ur Leukocyte Esterase Urine RBC Urine WBC Ur Squamous Epith Cells Urine Bacteria Urine Mucus Acetone Level NEGATIVE POC Glucose 08/02/21 08/02/21 05:41 06:34 WBC RBC Hgb Hct MCV MCH MCHC RDW Std Deviation RDW Coeff of Yonathan Plt Count MPV Immature Gran % (Auto) Neut % (Auto) Lymph % (Auto) [place] % (Auto) Eos % (Auto) Baso % (Auto) Absolute Neuts (auto) Absolute Lymphs (auto) Nucleated RBC % Sodium Potassium Chloride Carbon Dioxide Anion Gap BUN Creatinine Estim Creat Clear Calc Est GFR (MDRD) Af Amer Est GFR (MDRD) Non-Af BUN/Creatinine Ratio Glucose Calcium Total Bilirubin AST ALT Alkaline Phosphatase Troponin I High Sens Total Protein Albumin Globulin Albumin/Globulin Ratio Lipase Urine Color Yellow Urine Clarity Cloudy Urine pH 6.0 Ur Specific [place] 1.010 Urine Protein 100 H Urine Glucose (UA) 250 H Urine Ketones 5 H Urine Occult Blood 50 H Urine Nitrite Negative Urine Bilirubin Negative Urine Urobilinogen 1 H Ur Leukocyte Esterase 500 H Urine RBC 0-5 SEEN Urine WBC >100 SEEN Ur Squamous Epith Cells 0 SEEN Urine Bacteria 3+ Urine Mucus 0 SEEN Acetone Level POC Glucose 340 H EKG Initial EKG: Attestation: I personally reviewed and interpreted this EKG as follows: Comments: Paced rhythm with a ventricular rate of 70 Discharge Plan Triage Chief Complaint: Hyperglycemia ED Provider: Jorge Jackson Dx/Rx/DC Orders Clinical Impression: Hyperglycemia due to diabetes mellitus, Acute kidney injury, Dehydration, mild Instructions: ED Diabetic Hyperglycemia Prescriptions: No Action tamsulosin 0.4 mg capsule 0.4 mg PO QHS RF: 0 topiramate 25 tablet 25 mg PO BID RF: 0 omeprazole 20 capsule,delayed release(DR/EC) 20 mg PO BID RF: 0 albuterol sulfate 108 HFA aerosol inhaler 2 puff inhalation Q6H PRN PRN (Reason: Sob &/Or Wheezing) RF: 0 insulin glargine 100 UNIT/ML insulin pen 10 unit SQ QHS RF: 0 bumetanide 1 mg tablet 3 mg PO DAILY RF: 0 spironolactone 25 tablet 25 mg PO DAILY Qty: 0 RF: 0 nadolol 20 mg tablet 10 mg PO DAILY Qty: 45 RF: 3 Eliquis 5 mg tablet 5 mg PO BID Qty: 180 RF: 3 sotalol 80 mg tablet 80 mg PO BID Qty: 180 RF: 3 Primary Care Provider: Pratibha Canales Referrals: Pratibha Canales MD [Primary Care Provider] - 3-5 Days
[2021-08-02 06:20] LABS: Bedside Glucose 340 mg/dL (70-110)
[2021-08-02 06:43] LABS: Absolute Lymphocyte Count 0.39 X10^3/uL (0.83-4.51); Absolute Neutrophil Count 8.4 X10^3/uL (2.0-7.7); Basophil# 0.03 X10^3/uL; Basophil% 0.3 % (0-1); Eosinophil# 0.02 X10^3/uL; Eosinophils% 0.2 % (0-5); Hematocrit 37.4 % (40-54); Hemoglobin 12.5 g/dL (13.0-16.5); Lymphocyte # 0.39 X10^3/ul (0.83-4.51); Lymphocyte % 4.1 % (19-41); Mean Corp Hgb Conc 33.4 g/dL (32-36); Mean Corpuscular Hgb 32.6 pg (27.0-32.0); Mean Corpuscular Volume 97.7 fL (80-94); Mean Platelet Vol. 10.9 fl (6.2-12.0); Monocyte# 0.61 X10^3/uL; Monocyte% 6.4 % (0-10); NRBC Flagged by Analyzer 0 % (0-5); Neutrophil # 8.42 X10^3/uL (2.7-7.7); Neutrophil % 88.1 % (47-70); POSITIVE DIFFERENTIAL YES; Platelet Count 148 K/mm3 (150-450); RBC Distribution Width SD 49.9 fl (35.1-43.9); Red Blood Count 3.83 M/mm3 (4.6-6.2); White Blood Count 9.6 K/mm3 (4.4-11.0)
[2021-08-02 06:44] LABS: Mucous, Urine 0 SEEN /hpf (<or=2+); Squamous Epithelial Cells - UA 0 SEEN /hpf (0-5)
[2021-08-02 06:47] LABS: Differential Indicated SCAN CRITERIA MET
[2021-08-02 07:06] LABS: ALB/GLOB Ratio 0.6 RATIO (0.9-2.4); AST(SGOT) 35 U/L (15-37); Alanine Aminotransfer ALT/SGPT 54 U/L (16-61); Albumin, Serum 2.7 g/dL (3.2-5.0); Alkaline Phosphatase 232 U/L (45-117); Anion Gap 8 (5-15); BUN 30 mg/dL (7-18); Calcium,Total 9.2 mg/dL (8.5-10.1); Chloride 102 mmol/L (98-107); Creatinine, Serum 1.76 mg/dL (0.70-1.30); EST Glomerular Filtration Rate 41 mL/min (>60); Est Glom Filt Rate - Afr Amer 50 mL/min (>60); Estimated Creatinine Clearance 39.61 ml/min; Globulin 4.8 g/dL (2.2-4.2); Glucose 360 mg/dL (74-106); Lipase 30 U/L (73-393); Protein, Total 7.5 g/dL (6.4-8.2); Sodium Level 135 mmol/L (136-145); Troponin-I HS 80 pg/mL (3.0-78.0)
--- NOTE | 2021-08-02 07:08 | EKG12_ITS ---
Test Reason : HYPERGLYCEMIA Blood Pressure : / mmHG Vent. Rate : 070 BPM Atrial Rate : 051 BPM P-R Int : 000 ms QRS Dur : 180 ms QT Int : 500 ms P-R-T Axes : 000 187 099 degrees QTc Int : 540 ms AV dual-paced rhythm with occasional ventricular-paced complexes Biventricular pacemaker detected Abnormal ECG Confirmed by HOWARD BUSTILLO, BRADY ([id number]), restaurant expeditor ISREAL HORTON ([id number]) on 08/05/2021 9:51:26 AM Referred By: Confirmed By:BRADY LAWRNECE MD
[2021-08-02 07:09] LABS: Color, Urine Yellow (Yellow); Glucose, Dipstick 250 mg/dl (Normal); Ketone-Dipstick 5 mg/dl (Negative); Leukocyte Esterase-Dipstick 500 /ul (Negative); Nitrite-Dipstick Negative (Negative); Occult Blood-Urine 50 /ul (Negative); Protein-Dipstick 100 mg/dl (Negative); Urine Bilirubin Dipstick Negative (Negative); Urine Clarity Cloudy (Clear); Urine Urobilinogen 1 mg/dl (Normal)
[2021-08-02 07:11] LABS: Bacteria 3+ /hpf (None Seen); White Blood Cells >100 SEEN /hpf (0-5)
[2021-08-02 07:13] LABS: Red Blood Cells-Urine 0-5 SEEN /hpf (0-5)
[2021-08-02] MEDS: 0.9% Normal Saline 1,000 ML 1000 ML IV (07:23)
[2021-08-02 07:25] VITALS: BP 98/63; PULSE 70; RESP 18; O2SAT 98
[2021-08-02] MEDS: Ceftriaxone 1 GM/50 ML BAG IV (08:00)
[2021-08-02 08:26] LABS: Troponin-I HS 82 pg/mL (3.0-78.0)
[2021-08-02 08:50] LABS: Bedside Glucose 300 mg/dL (70-110)
[2021-08-02 09:26] VITALS: BP 116/67; PULSE 79; RESP 16; TEMP 37.1; O2SAT 96
== END 2021-08-02 09:27 | disposition home or self-care (01) ==
LOC: ED 07:06
PROVIDERS: Emergency Provider Emergency Medicine; PCP Internal Medicine
DX: N39.0 Urinary tract infection, site not specified (principal); N17.9 Acute kidney failure, unspecified; E86.0 Dehydration; E11.65 Type 2 diabetes mellitus with hyperglycemia; I11.0 Hypertensive heart disease with heart failure; I50.42 Chronic combined systolic (congestive) and diastolic (congestive) heart failure; I48.11 Longstanding persistent atrial fibrillation; I27.21 Secondary pulmonary arterial hypertension; G40.909 Epilepsy, unspecified, not intractable, without status epilepticus; I25.10 Atherosclerotic heart disease of native coronary artery without angina pectoris; K74.60 Unspecified cirrhosis of liver; R18.8 Other ascites; E78.5 Hyperlipidemia, unspecified; G47.33 Obstructive sleep apnea (adult) (pediatric); Z79.01 Long term (current) use of anticoagulants; Z79.4 Long term (current) use of insulin; Z79.899 Other long term (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; I25.2 Old myocardial infarction; Z86.73 Personal history of transient ischemic attack (TIA), and cerebral infarction without residual deficits; Z87.891 Personal history of nicotine dependence; Z95.810 Presence of automatic (implantable) cardiac defibrillator
CPT/HCPCS: 80053; 81001; 82009; 82962; 83690; 84484; 85025; 87077; 87086; 87088; 87186; 93005; 96361; 96365; 99285; J7030; J7040; A4216

== ENCOUNTER 2021-09-26 08:45 | Emergency (ER) | payer MEDICARE, OTHER, SELFPAY ==
[2021-09-26 08:47] VITALS: BP 119/51; PULSE 70; RESP 18; TEMP 36.8; O2SAT 100; BMI 23.8
--- NOTE | 2021-09-26 09:34 | RAD_ITS ---
STUDY: X-RAY - LEFT SCAPULA REASON FOR EXAM: Male, 71 years old. Trauma TECHNIQUE: 2 view(s) of the scapula were obtained. COMPARISON: None. FINDINGS: Pacemaker partially obscuring the scapula. Normal visualized scapula. Normal glenohumeral articulation. Normal acromioclavicular joint. Normal visualized humeral head. Normal visualized pulmonary apex. RAD/Scapula IMPRESSION: Limited visualization of the scapula. No acute bony injury. Electronically Signed: Segundo George DO at 10:44 EST Tel [phone], Service support ,
--- NOTE | 2021-09-26 09:35 | RAD_ITS ---
STUDY: X-RAY - LEFT SHOULDER REASON FOR EXAM: Male, 71 years old. Injury/Pain TECHNIQUE: 4 view(s) of the shoulder. COMPARISON: None. FINDINGS: Normal glenohumeral articulation. Normal acromioclavicular joint. Normal acromion. Normal humeral head and visualized proximal humerus. The soft tissue structures are unremarkable. Normal visualized pulmonary apex. RAD/Shoulder min 2 Views IMPRESSION: Normal x-ray examination of the shoulder. Electronically Signed: Segundo George DO at 10:47 EST Tel [phone], Service support ,
[2021-09-26] MEDS: 0.9% Normal Saline 1,000 ML 1000 ML IV (09:59)
[2021-09-26 10:08] LABS: Absolute Lymphocyte Count 0.66 X10^3/uL (0.83-4.51); Absolute Neutrophil Count 7.7 X10^3/uL (2.0-7.7); Basophil# 0.03 X10^3/uL; Basophil% 0.3 % (0-1); Eosinophil# 0.16 X10^3/uL; Eosinophils% 1.7 % (0-5); Hematocrit 41.7 % (40-54); Hemoglobin 14.4 g/dL (13.0-16.5); Lymphocyte # 0.66 X10^3/ul (0.83-4.51); Lymphocyte % 7.1 % (19-41); Mean Corp Hgb Conc 34.5 g/dL (32-36); Mean Corpuscular Hgb 32.7 pg (27.0-32.0); Mean Corpuscular Volume 94.6 fL (80-94); Mean Platelet Vol. 11.8 fl (6.2-12.0); Monocyte# 0.64 X10^3/uL; Monocyte% 6.9 % (0-10); NRBC Flagged by Analyzer 0 % (0-5); Neutrophil # 7.68 X10^3/uL (2.7-7.7); Platelet Count 119 K/mm3 (150-450); RBC Distribution Width CV 12.4 % (11.6-14.6); RBC Distribution Width SD 43.3 fl (35.1-43.9); Red Blood Count 4.41 M/mm3 (4.6-6.2); White Blood Count 9.3 K/mm3 (4.4-11.0)
[2021-09-26 10:15] LABS: ALB/GLOB Ratio 0.8 RATIO (0.9-2.4); AST(SGOT) 21 U/L (15-37); Alanine Aminotransfer ALT/SGPT 36 U/L (16-61); Albumin, Serum 3.4 g/dL (3.2-5.0); Alkaline Phosphatase 184 U/L (45-117); Anion Gap 5 (5-15); BUN 48 mg/dL (7-18); BUN/Creat Ratio 27.1 RATIO (10-20); Calcium,Total 9.4 mg/dL (8.5-10.1); Chloride 101 mmol/L (98-107); Creatinine, Serum 1.77 mg/dL (0.70-1.30); EST Glomerular Filtration Rate 41 mL/min (>60); Est Glom Filt Rate - Afr Amer 49 mL/min (>60); Estimated Creatinine Clearance 39.39 ml/min; Globulin 4.5 g/dL (2.2-4.2); Glucose 388 mg/dL (74-106); Potassium 5.2 mmol/L (3.5-5.1); Protein, Total 7.9 g/dL (6.4-8.2); Sodium Level 133 mmol/L (136-145)
--- NOTE | 2021-09-26 10:25 | ED.VIS.FALL ---
HPI HPI - Fall History of Present Illness Chief Complaint: Fall Informant: patient Occured/Mechanism Occurred: Today Mechanism/Context: Yes same level fall Pain/Injury Location: Left shoulder Quality of Pain: Sharp Worsened by: Coughing Relieved by: Nothing Associated Symptoms Associated Symptoms: Negative for Parasthesias, Loss of function, Inability to ambulate and Loss of consciousness Narrative Narrative: Patient presents after a fall that occurred today. Patient states his blood sugar was elevated this morning. Patient states he felt lightheaded and weak in his legs. Patient fell. Patient denies any loss of consciousness. Patient denies any paresthesias. Patient states he injured his left scapula when he fell. Patient states the pain is sharp. Patient states pain is worse with coughing. Patient states nothing seems to help with it. Patient also admits to some mild pain in his neck. [facility] Medical History Ascites Asthma Atherosclerosis of coronary artery of [place] heart without angina pectoris Atrial fibrillation and flutter Benign brain tumor Cholelithiasis Chronic combined systolic and diastolic CHF (congestive heart failure) Cirrhosis of liver Cirrhosis of liver with ascites Diabetes Diabetes mellitus, type II Essential (primary) hypertension History of CVA (cerebrovascular accident) Hyperlipidemia Longstanding persistent atrial fibrillation Non-rheumatic tricuspid valve insufficiency Nonischemic cardiomyopathy NSTEMI (non-ST elevated myocardial infarction) (10/09/19) ALBINO (obstructive sleep apnea) 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 Right ventricular systolic dysfunction Secondary pulmonary arterial hypertension Seizure disorder Stasis edema of both lower extremities Home Medications albuterol sulfate 2 puff INHALATION Q6H PRN PRN 10/30/18 [History Last Taken 01/31/19] insulin glargine 10 unit SQ QHS 10/30/18 [History Last Taken 01/30/19] omeprazole 20 mg PO BID 10/30/18 [History Last Taken 01/31/19] topiramate 25 mg PO BID 10/30/18 [History Last Taken 01/31/19] spironolactone 25 mg PO DAILY #0 05/26/20 [Rx Last Taken 01/29/19] bumetanide 1 mg tablet 3 mg PO DAILY tab 07/10/20 [History Last Taken Unknown] nadolol 20 mg tablet 10 mg PO DAILY #45 tab 04/15/21 [Rx Last Taken Unknown] apixaban 5 mg tablet 5 mg PO BID #180 tab 04/16/21 [Rx Last Taken Unknown] tamsulosin 0.4 mg capsule 0.4 mg PO QHS cap 05/08/21 [History Last Taken Unknown] cephalexin 500 mg PO Q6 #28 capsule 08/02/21 [Rx Last Taken Unknown] sotalol 80 mg tablet 80 mg PO BID #180 tab 09/08/21 [Rx Last Taken Unknown] Allergy/AdvReac Type Severity Reaction Status Date / Time No Known Allergies Allergy Verified 09/26/21 08:55 Family History Daughter Heart disease valve replacement/chf Surgical History Biventricular ICD (implantable cardioverter-defibrillator) in place (10/12/19) H/O excision of tumor of brain meninges (2011) History of cardioversion (05/05/20) History of left heart catheterization (08/31/19) History of percutaneous coronary intervention (10/10/19) History of right and left heart catheterization History of tonsillectomy Social History Smoking Status: Former smoker ROS ROS ED Constitutional Constitutional ED: Denies chills or fever(s) Eyes Eyes: Denies blurry vision or change in vision ENT ENT ED: Denies rhinorrhea or sore throat Cardiovascular Cardiovascular: Denies chest pain or palpitations Respiratory/Chest Respiratory/Chest: Denies cough or dyspnea Gastrointestinal Gastrointestinal: Denies nausea or vomiting Genitourinary Genitourinary ED: Denies dysuria or hematuria Musculoskeletal Musculoskeletal: Reports neck pain; Denies back pain Integumentary Denies abscess or rash Neurologic Neurologic: Reports weakness; Denies headache(s) Allergic/Immunologic Allergic/Immunologic ED: Denies mouth swelling or urticaria EXAM Physical Exam Const Vital Signs: 09/26/21 08:47 09/26/21 08:51 09/26/21 10:33 Temperature 98.2 F Temperature Source Oral Pulse Rate 70 72 Respiratory Rate 18 18 Respiratory Effort Normal Respiratory Depth Normal Respiratory Pattern Normal Blood Pressure 119/51 L 117/77 Blood Pressure Mean 73 90 Pulse Ox 100 98 Oxygen Delivery Method Room Air Room Air 09/26/21 12:13 Temperature Temperature Source Pulse Rate 70 Respiratory Rate 16 Respiratory Effort Respiratory Depth Respiratory Pattern Blood Pressure 106/79 Blood Pressure Mean 88 Pulse Ox 96 Oxygen Delivery Method Room Air Positive well nourished and well developed General Appearance ED: well developed HEENT Reports normocephalic and moist mucous membranes atraumatic Neck supple and no JVD Resp normal respiratory effort and clear to auscultation bilaterally Cardio regular rate, regular rhythm and no murmurs GI normal to inspection, nondistended, normoactive bowel sounds and non-tender Palpation: soft Extremity normal to inspection General Extremety ED: Negative for edema or tenderness General Extremity: Negative for edema Right Upper Extremity: shoulder joint Shoulder Joint Exam - Right: palpation (There is tenderness over the left scapula. There is no bony crepitance or step-off. There is no deformity.), ROM (Range of motion was slightly limited in adduction of the left shoulder secondary to pain.) and neurovascular exam (Radial pulses are equal bilateral. Sensation was intact to light touch bilateral knee upper extremities.) Neuro oriented x3, CN's II-XII intact bilaterally and no sensory deficits noted Sensorium / Orientation: alert Motor Exam: strength 5/5 throughout Psych mental status grossly normal Skin no rashes or lesions noted MDM MDM MDM Narrative Medical decision making narrative: Patient was given IV fluids and morphine. See the was within normal limits. Comprehensive metabolic profile showed an elevated glucose of 388. BUN was 48 and creatinine was 1.77. These are consistent with prior results. Potassium was slightly elevated at 5.2. Patient was given albuterol aerosol for this. Anion gap was normal. X-rays of the left shoulder were obtained. There are 4 views. On my interpretation, there is no acute fracture or dislocation. There is no soft tissue swelling. X-rays of the left scapula were obtained. There are 2 views. On my interpretation, there is no acute fracture. There is no soft tissue swelling. Radiologist also interpreted the the x-rays and agrees. Patient was advised of his findings. Patient is feeling better on reevaluation. Patient was instructed to take Tylenol or ibuprofen as needed for pain. Patient was instructed use ice to the area. Patient was instructed to follow-up with his primary care physician in 5 to 7 days. Patient understood and was agreeable with the plan. All questions were answered. Lab Data Attestation: I reviewed the patient's lab results. Labs: Laboratory Results - last 24 hr 09/26/21 09/26/21 09/26/21 09:45 09:45 11:40 WBC 9.3 RBC 4.41 L Hgb 14.4 Hct 41.7 MCV 94.6 H MCH 32.7 H MCHC 34.5 RDW Std Deviation 43.3 RDW Coeff of Yonathan 12.4 Plt Count 119 L MPV 11.8 Immature Gran % (Auto) 1.000 H Neut % (Auto) 83.0 H Lymph % (Auto) 7.1 L [place] % (Auto) 6.9 Eos % (Auto) 1.7 Baso % (Auto) 0.3 Absolute Neuts (auto) 7.7 Absolute Lymphs (auto) 0.66 L Nucleated RBC % 0 Sodium 133 L Potassium 5.2 H Chloride 101 Carbon Dioxide 27.0 Anion Gap 5 BUN 48 H Creatinine 1.77 H Estim Creat Clear Calc 39.39 Est GFR (MDRD) Af Amer 49 L Est GFR (MDRD) Non-Af 41 L BUN/Creatinine Ratio 27.1 H Glucose 388 H Calcium 9.4 Total Bilirubin 0.90 AST 21 ALT 36 Alkaline Phosphatase 184 H Total Protein 7.9 Albumin 3.4 Globulin 4.5 H Albumin/Globulin Ratio 0.8 L Urine Color Yellow Urine Clarity Clear Urine pH 7.0 Ur Specific [place] 1.005 Urine Protein Negative Urine Glucose (UA) 1000 H Urine Ketones Negative Urine Occult Blood Negative Urine Nitrite Negative Urine Bilirubin Negative Urine Urobilinogen Normal Ur Leukocyte Esterase Negative Urine RBC 0 SEEN Urine WBC 0 SEEN Ur Squamous Epith Cells 0 SEEN Urine Bacteria 0 SEEN Urine Mucus 0 SEEN Radiography Diagnostic Testing: Clinical Impression(s) from Imaging Studies Scapula X-Ray 09/26/21 09:34 IMPRESSION: Limited visualization of the scapula. No acute bony injury. Electronically Signed: Segundo George DO at 10:44 EST Tel [phone], Service support , Shoulder X-Ray 09/26/21 09:35 IMPRESSION: Normal x-ray examination of the shoulder. Electronically Signed: Segundo George DO at 10:47 EST Tel [phone], Service support , Discharge Plan Triage Chief Complaint: Fall ED Provider: Goldy Olivia Dx/Rx/DC Orders Clinical Impression: Contusion of left shoulder, initial encounter, Hyperglycemia Instructions: ED Fall with Uncertain Cause, ED Shoulder Contusion Prescriptions: No Action tamsulosin 0.4 mg capsule 0.4 mg PO QHS RF: 0 topiramate 25 tablet 25 mg PO BID RF: 0 omeprazole 20 capsule,delayed release(DR/EC) 20 mg PO BID RF: 0 albuterol sulfate 108 HFA aerosol inhaler 2 puff inhalation Q6H PRN PRN (Reason: Sob &/Or Wheezing) RF: 0 insulin glargine 100 UNIT/ML insulin pen 10 unit SQ QHS RF: 0 bumetanide 1 mg tablet 3 mg PO DAILY RF: 0 spironolactone 25 tablet 25 mg PO DAILY Qty: 0 RF: 0 cephalexin [cephalexin] 500 MG capsule 500 mg PO Q6 Qty: 28 RF: 0 nadolol 20 mg tablet 10 mg PO DAILY Qty: 45 RF: 3 Eliquis 5 mg tablet 5 mg PO BID Qty: 180 RF: 3 sotalol 80 mg tablet 80 mg PO BID Qty: 180 RF: 3 Primary Care Provider: Pratibha Canales Referrals: Pratibha Canales MD [Primary Care Provider] - 3-5 Days Disposition Disposition: Home, Self Care
[2021-09-26] MEDS: Morphine 4 MG/ML Syringe IV (10:31)
[2021-09-26 10:33] VITALS: BP 117/77; PULSE 72; RESP 18; O2SAT 98
[2021-09-26 11:47] LABS: Bacteria 0 SEEN /hpf (None Seen); Mucous, Urine 0 SEEN /hpf (<or=2+); Red Blood Cells-Urine 0 SEEN /hpf (0-5); Squamous Epithelial Cells - UA 0 SEEN /hpf (0-5); White Blood Cells 0 SEEN /hpf (0-5)
[2021-09-26 11:48] LABS: Color, Urine Yellow (Yellow); Glucose, Dipstick 1000 mg/dl (Normal); Ketone-Dipstick Negative (Negative); Leukocyte Esterase-Dipstick Negative /ul (Negative); Nitrite-Dipstick Negative (Negative); Occult Blood-Urine Negative /ul (Negative); Protein-Dipstick Negative (Negative); Specific Gravity, Urine 1.005 (1.002-1.030); Urine Bilirubin Dipstick Negative (Negative); Urine Clarity Clear (Clear); Urine Urobilinogen Normal (Normal)
[2021-09-26 12:13] VITALS: BP 106/79; PULSE 70; RESP 16; O2SAT 96
[2021-09-26] MEDS: Albuterol 2.5 MG/3 ML VIAL.NEB. INHALATION (12:52)
[2021-09-26 13:01] VITALS: PULSE 85; RESP 18; O2SAT 95
[2021-09-26 13:27] VITALS: BP 123/70; PULSE 77; RESP 18; TEMP 36.9; O2SAT 96
== END 2021-09-26 13:28 | disposition home or self-care (01) ==
PROVIDERS: Emergency Provider Emergency Medicine; PCP Internal Medicine
DX: S40.012A Contusion of left shoulder, initial encounter (principal); M54.2 Cervicalgia; W18.30XA Fall on same level, unspecified, initial encounter; Y93.9 Activity, unspecified; Y92.9 Unspecified place or not applicable; Y99.9 Unspecified external cause status; E87.5 Hyperkalemia; I25.10 Atherosclerotic heart disease of native coronary artery without angina pectoris; I11.0 Hypertensive heart disease with heart failure; I50.42 Chronic combined systolic (congestive) and diastolic (congestive) heart failure; E11.65 Type 2 diabetes mellitus with hyperglycemia; I48.11 Longstanding persistent atrial fibrillation; I27.21 Secondary pulmonary arterial hypertension; G40.909 Epilepsy, unspecified, not intractable, without status epilepticus; J45.909 Unspecified asthma, uncomplicated; K74.60 Unspecified cirrhosis of liver; I42.8 Other cardiomyopathies; E78.5 Hyperlipidemia, unspecified; G47.33 Obstructive sleep apnea (adult) (pediatric); Z79.4 Long term (current) use of insulin; Z79.01 Long term (current) use of anticoagulants; Z79.899 Other long term (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; I25.2 Old myocardial infarction; Z86.73 Personal history of transient ischemic attack (TIA), and cerebral infarction without residual deficits; Z87.891 Personal history of nicotine dependence
CPT/HCPCS: 73010; 73030; 80053; 81001; 85025; 94640; 96361; 96374; 99285; J7030; A4216

== ENCOUNTER 2021-11-12 16:27 | Outpatient (CLI) | payer MEDICARE, OTHER, SELFPAY ==
--- NOTE | 2021-11-12 | IMM_PTH ---
PATIENT: STEPH BAUMANN (RICK)T #:[id number] LOC: [facility] #:[id number] AGE/SX: 71/M ROOM: RE11/12/[address]: Dr. Erik Saravia MD : 1950 BED: DIS: 11/12/2021 SPEC #: [id number] RECD: 11/16/21 12:43 STATUS: SOU[place]anza REQ #: [id number] ADILIA: 11/12/21 00:[address]: Erik Saravia DEPT: IMMUNOHISTOCHEMISTRY RECD BY: Paige Prieto ENTERED: 11/16/21 12:44 SP TYPE: IMMUNO OTHR DR: Dr. Pratibha Canales MD Tissues: A - PROSTATE RIGHT B - PROSTATE RIGHT D - PROSTATE LEFT Procedures: 34BE12 (add) P40 (add) 34BE12 (initial) [facility]YSIC[facility] IN[facility] [address] [address] SPECIMEN INFORMATION: Tissue Source: A ? Right prostate #1, B - Right prostate #2, D ? Left prostate #2 Clinical Info: Elevated PSA Specimen Number: [id number] A, B & D CPT code: 55328, 80116 x5 METHODOLOGY: Deparaffinized sections of prefer/formalin-fixed tissue or PAP/DQ stained slides are incubated with monoclonal/polyclonal antibodies/oligonucleotide probes. Localization is made via biotin free immunoperoxidase method. Appropriate controls are performed and reacted as expected. Results on target cell population are indicated in the following table: RESULTS: ANTIBODY / CLONE RESULT Block A P40 (BC28) negative 34BE12 (34BE12) negative Block B P40 (BC28) negative 34BE12 (34BE12) negative Block D P40 (BC28) negative 34BE12 (34BE12) negative These tests were developed and their performance characteristics determined by [facility]. They may not have been cleared or approved by the U.S. Food and Drug Administration. The FDA has determined that such clearance or approval is not necessary. The above immunohistochemical/dualISH markers are ordered and reviewed by the Pathologist. INTERPRETATION: A. Right prostate #1, core biopsy: Adenocarcinoma. B. Right prostate, #2, core biopsy: Adenocarcinoma. D. Left prostate #2, core biopsy: Adenocarcinoma. AM:noah 11/17/2021
--- NOTE | 2021-11-12 11:00 | PROSBIL_PTH ---
[id number] AGE/SX: 71/M ROOM: RE11/12/[address]: Dr. Erik Saravia MD : 1950 BED: DIS: 11/12/2021 SPEC #: [id number] RECD: 11/13/21 11:07 STATUS: ABRAHAM PERKINSBrant #: [id number] ADILIA: 11/12/21 11:[address]: Erik Saravia DEPT: SURGICAL PATHOLOGY RECD BY: Chelsea Mora ENTERED: 11/13/21 11:08 SP TYPE: PROST BX CHANDNI DR: Dr. Pratibha Canales MD Tissues: A - PROSTATE RIGHT B - PROSTATE RIGHT C - PROSTATE LEFT D - PROSTATE LEFT Procedures: PROSTATE BX HEADER OPERATION: Prostate biopsy PRE-OP DIAGNOSIS: Elevated PSA TISSUE SUBMITTED: A - Right prostate #1, B - Right prostate #2, C - Left prostate #1, D - Left prostate #2 MICROSCOPIC DIAGNOSIS A. Right prostate #1, core biopsy: Adenocarcinoma. Matthew grade: 7 (3+4) Cores involved: 1 out of 1 core Tissue involved: 40% Greatest tumor length: 4 millimeters (discontinuous) See comment. B. Right prostate #2, core biopsy: Adenocarcinoma. [place] grade: 7 (3+4) Cores involved: 1 out of 1 core Tissue involved: 50% Greatest tumor length: 4.8 millimeters See comment. C. Left prostate #1, core biopsy: Adenocarcinoma. [place] grade: 7 (4+3) Cores involved: 1 out of 1 core Tissue involved: 100% Greatest tumor length: 9 millimeters D. Left prostate #2, core biopsy: Adenocarcinoma. Matthew grade: 7 (4+3) Cores involved: 1 out of 1 core Tissue involved: 55% (discontinuous) Greatest tumor length: 4.5 millimeters See comment. AM:noah 11/16/2021 COMMENT A, B & D - Immunohistochemistry ([id number]) supports the above diagnosis. Case has been reviewed in consultation with Dr. Cadena who concurs with the above diagnosis. IDC:[id number] MICROSCOPIC DESCRIPTION Slides are reviewed. GROSS DESCRIPTION A - Received is one container designated prostate, right #1. The specimen consists of one elongated fragment of light gutierrez-white soft tissue measuring 0.6 cm in length and 0.1 cm in diameter. The specimen is totally submitted in one cassette. B - Received is one container designated prostate, right #2. The specimen consists of one elongated fragment of light gutierrez-white soft tissue measuring 1 cm in length and 0.1 cm in diameter. The specimen is totally submitted in one cassette. C - Received is one container designated prostate, left #1. The specimen consists of one elongated fragment of light gutierrez-white soft tissue measuring 1.1 cm in length and 0.1 cm in diameter. The specimen is totally submitted in one cassette. D - Received is one container designated prostate, left #2. The specimen consists of one elongated fragment of light gutierrez-white soft tissue measuring 1 cm in length and 0.1 cm in diameter. The specimen is totally submitted in one cassette. / LEONIDAS:noah 11/13/2021 TC:0 CPT: G0146
== END 2021-11-12 23:59 | disposition short-term general hospital (02) ==
LOC: LABSPEC 16:29
PROVIDERS: PCP Internal Medicine; Visit Provider Urology
DX: R97.20 Elevated prostate specific antigen [PSA] (principal)
CPT/HCPCS: 88305; 88341; 88342; G0416

== ENCOUNTER 2021-11-19 14:14 | Outpatient (CLI) | payer MEDICARE, OTHER, SELFPAY ==
--- NOTE | 2021-11-19 14:23 | CT_ITS ---
STUDY: CT ABDOMEN AND PELVIS WITH CONTRAST REASON FOR EXAM: Male, 71 years old. MALIGNANT NEOPLASM OF PROSTATE RADIATION DOSAGE (If Supplied By Facility): CTDIvol = ( 18.04 ) mGy, DLP = ( 1667.97 ) mGycm TECHNIQUE: Transaxial images were obtained from the dome of the diaphragm to the symphysis pubis without oral contrast. IV 100mL Isovue-300 was administered. Sagittal and coronal images were reconstructed. Individualized dose optimization techniques were used for this CT. COMPARISON: None. FINDINGS: The visualized lung bases are unremarkable. A dual-chamber pacemaker is seen. Normal liver. Small gallstones are seen along the dependent portion of the gallbladder lumen. Normal spleen. Normal pancreas. There is a 2.1 cm x 1.7 cm solid nodule in the right adrenal gland. There is also evidence of a 1.5 cm x 1.3 cm hypodense nodule in the left adrenal gland. These may represent bilateral adenomas. Normal right kidney. There is a 6.7 mm cyst in the lower pole of the left kidney. Normal visualized stomach. Normal small intestine. There are multiple colonic diverticula consistent with diverticulosis. The appendix is visualized and appears normal. There is diffuse atherosclerotic calcification of the abdominal aorta and its major visceral branches, without a demonstrated aneurysm. Normal inferior vena cava. Normal retroperitoneum. There is diffuse thickening of the bladder wall. There is enlargement of the prostate gland. The prostate measures 3.5 cm x 4.7 cm. This causes indentation at the bladder base. Moderate sized right inguinal hernia containing fat and nondilated small bowel loops. 20% loss of height of the superior plate of the L2 vertebrae. Findings suggestive of hemangioma of the L5 vertebra. CT/Abdomen/Pelvis W IV Cont ONLY IMPRESSION: Heterogeneous enlargement of the prostate with indentation of the bladder base. Diffuse bladder wall thickening. Moderate size right inguinal hernia containing nondilated bowel loops. Sigmoid diverticulosis. Multiple small gallstones. Bilateral adrenal nodules suggestive of possible adenomas. Electronically Signed: Erik Sandoval MD at 15:09 EST , Service support ,
[2021-11-19 14:45] LABS: CREATININE FINGERSTICK 1.4 mg/dL (0.70-1.30); EGFR FINGERSTICK > 60.0000 mL/min (>60)
--- NOTE | 2021-11-23 08:33 | NM_ITS ---
CLINICAL: 71-year-old male with reported history of carcinoma of the prostate with apparent recent traumatic fall. WHOLE BODY 99m Tc MDP RADIONUCLIDE BONE SCINTIGRAPHY COMPARISON: CT of the abdomen-pelvis report 11/19/2021 FINDINGS: Following the intravenous administration of 26.0 mCi of 99m Tc MDP, whole body bone images reveal: 1. Increased radiopharmaceutical concentration is identified in the right proximal clavicle, second and fourth lumbar vertebra diffusely, the left anterior, anterolateral third-eighth ribs (relatively linear in presentation) visualized in the longitudinal plane. 2. Enhanced uptake is defined in the acromioclavicular and sternoclavicular compartments of both shoulders, upper cervical spine posteriorly on the left, mid cervical spine posteriorly on the right, the fifth-seventh thoracic vertebra posteriorly on the left at the costovertebral junction. 3. The remaining skeletal structures are scintigraphically unremarkable with normal-appearing renal images and urinary bladder activity identified. NM/Bone Scan Whole Body IMPRESSION: 1. The increase in radiopharmaceutical concentration defined in the right proximal clavicle, second and fourth lumbar vertebra, the left anterior anterolateral ribs is most consistent with trauma-fracture. Plain film radiography correlation may be of benefit in the corresponding locations for further evaluation. 2. Degenerative arthritis appears expressed in the bilateral shoulders, cervical and thoracic spine. 3. There is no definitive typical scintigraphic evidence of diffuse axial skeletal metastatic disease on the current examination. Electronically Signed: Stanton Brush DO at 21:38 EST Tel , Service support ,
== END 2021-11-19 23:59 | disposition short-term general hospital (02) ==
PROVIDERS: PCP Internal Medicine; Referring Provider Urology; Visit Provider Urology
DX: C61 Malignant neoplasm of prostate (principal)
CPT/HCPCS: 74177; 78306; A9503; Q9967

== ENCOUNTER 2022-01-06 05:20 | Day surgery (SDC) | payer MEDICARE, OTHER, SELFPAY ==
[2022-01-06 06:26] VITALS: BP 114/78; PULSE 70; RESP 16; TEMP 37.1; O2SAT 100; BMI 25.0
[2022-01-06] MEDS: Lactated Ringers 1,000 ML 15 ML IV (06:34)
[2022-01-06 06:50] LABS: Bedside Glucose 185 mg/dL (70-110)
[2022-01-06] MEDS: Cefazolin 2 GM in 0.9% Normal Saline 100 ML IV (07:42)
--- NOTE | 2022-01-06 08:11 | HP.PCM_ITS ---
HPI - General HPI Narrative STEPH BAUMANN, is a 71 M who presents for placement of gold markers and ulcer spacer organ at risk gel matrix [facility] Medical History (Updated 01/05/22 @ 15:59 by Christine Reynolds) Ambulates with cane Anticoagulant long-term use Ascites Asthma Atherosclerosis of coronary artery of [place] heart without angina pectoris Atrial fibrillation and flutter Back pain Benign brain tumor Cardiology follow-up encounter Cholelithiasis Chronic combined systolic and diastolic CHF (congestive heart failure) Cirrhosis of liver Cirrhosis of liver with ascites CPAP (continuous positive airway pressure) dependence Diabetes Diabetes mellitus, type II Essential (primary) hypertension Former smoker High cholesterol History of atrial fibrillation History of CVA (cerebrovascular accident) History of echocardiogram History of stress test History of ulceration Hyperlipidemia Injury of back Insulin dependent diabetes mellitus Longstanding persistent atrial fibrillation Non-rheumatic tricuspid valve insufficiency Nonischemic cardiomyopathy NSTEMI (non-ST elevated myocardial infarction) (10/09/19) ALBINO (obstructive sleep apnea) 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 Right ventricular systolic dysfunction Secondary pulmonary arterial hypertension Seizure disorder Sleep apnea Stasis edema of both lower extremities Stroke/cerebrovascular accident Thyroid disease Wears glasses Home Medications albuterol sulfate 2 puff INHALATION Q6H PRN PRN 10/30/18 [History Last Taken 01/31/19] insulin glargine 28 unit SQ QHS 10/30/18 [History Last Taken 01/30/19] omeprazole 20 mg PO BID 10/30/18 [History Last Taken 01/31/19] topiramate 25 mg PO BID 10/30/18 [History Last Taken 01/31/19] bumetanide 1 mg tablet 3 mg PO DAILY tab 07/10/20 [History Last Taken Unknown] nadolol 20 mg tablet 10 mg PO DAILY #45 tab 04/15/21 [Rx Last Taken Unknown] apixaban 5 mg tablet 5 mg PO BID #180 tab 04/16/21 [Rx Last Taken 01/02/22] tamsulosin 0.4 mg capsule 0.4 mg PO QHS cap 05/08/21 [History Last Taken Unknown] bicalutamide 50 mg tablet 50 mg PO DAILY 12/10/21 [History Last Taken Unknown] calcium 650 mg-vitamin D3 12.5 mcg-vitamin K 40 mcg chewable tablet 1 tab PO DAILY tab 12/10/21 [History Last Taken Unknown] cyanocobalamin (vitamin B-12) 2,500 mcg tablet 2,500 mcg PO DAILY 12/10/21 [History Last Taken Unknown] lisinopril 40 mg tablet 40 mg PO DAILY 12/10/21 [History Last Taken Unknown] loratadine 10 mg capsule 10 mg PO DAILY PRN 12/10/21 [History Last Taken Unknown] multivit,Ca,min-iron 8 mg-folic acid 200 mcg-lycopene 600 mcg tablet 1 tab PO DAILY tab 12/10/21 [History Last Taken Unknown] omega 7-lmv-dbn-fish oil 60 mg-90 mg-500 mg capsule 1 cap PO DAILY 12/10/21 [History Last Taken Unknown] Allergy/AdvReac Type Severity Reaction Status Date / Time oxycodone AdvReac hallucinati Verified 12/30/21 13:30 ons Family History Daughter Heart disease valve replacement/chf Diabetes Mother Thyroid disorder Surgical History (Updated 12/30/21 @ 13:54 by Angie Izaguirre) Biventricular ICD (implantable cardioverter-defibrillator) in place (10/12/19) H/O excision of tumor of brain meninges (2011) History of cardiac catheterization History of cardioversion (05/05/20) History of left heart catheterization (08/31/19) History of percutaneous coronary intervention (10/10/19) History of right and left heart catheterization History of tonsillectomy Social History Smoking Status: Former smoker how long ago did patient quit smokin years alcohol intake: never substance use type: does not use Vital Signs Vital Signs Vital Signs: 01/06/22 06:26 Temperature 98.7 F Temperature Source Temporal Pulse Rate 70 Respiratory Rate 16 Respiratory Pattern Normal Blood Pressure 114/78 Blood Pressure Mean 90 Blood Pressure Source Monitor Blood Pressure Position Semi-Fowlers Blood Pressure Location Right Arm Pulse Ox 100 Oxygen Delivery Method Room Air Weight Weight: 77 kg Body Mass Index (BMI) 25.0 Results Lab / Micro Data Labs: Laboratory Results - last 24 hr 01/06/22 06:31: POC Glucose 185 H
--- NOTE | 2022-01-06 08:12 | PCM.DC ---
Discharge Instructions Diet Discharge Diet: No restrictions Activity Discharge Activity: Return to Normal Activity and May Not Drive (while taking narcotic pain medications.) Dressing / Incision Call your doctor if you observe: Fever of 101 or Higher Follow Up Care Please Follow Up With: Erik Saravia MD When: Call [phone] for an appointment Test Results: Test results from this visit will be discussed in further detail at your follow-up appointment, if applicable. Discharge Plan Admission Primary Reason for Your Visit: spacers and gold markers Attending Provider: Erik Saravia Primary Care Provider: Pratibha Canales Discharge Orders/Prescriptions Prescriptions: Continued tamsulosin 0.4 mg capsule 0.4 mg PO QHS RF: 0 bicalutamide [Casodex] 50 mg tablet 50 mg PO DAILY RF: 0 lisinopril 40 mg tablet 40 mg PO DAILY RF: 0 Centrum Ultra Men's 8 mg iron- 200 mcg-600 mcg tablet 1 tab PO DAILY RF: 0 loratadine 10 mg capsule 10 mg PO DAILY PRN (Reason: ALLERGIES) RF: 0 omega 9-mnf-int-fish oil [Fish Oil] 60-90-500 mg capsule 1 cap PO DAILY RF: 0 cyanocobalamin (vitamin B-12) 2,500 mcg tablet 2,500 mcg PO DAILY RF: 0 calcium-vitamin D3-vitamin K [Viactiv] 650 mg-12.5 mcg-40 mcg tablet,chewable 1 tab PO DAILY RF: 0 topiramate 25 tablet 25 mg PO BID RF: 0 omeprazole 20 capsule,delayed release(DR/EC) 20 mg PO BID RF: 0 albuterol sulfate 108 HFA aerosol inhaler 2 puff inhalation Q6H PRN PRN (Reason: Sob &/Or Wheezing) RF: 0 insulin glargine 100 UNIT/ML insulin pen 28 unit SQ QHS RF: 0 bumetanide 1 mg tablet 3 mg PO DAILY RF: 0 nadolol 20 mg tablet 10 mg PO DAILY Qty: 45 RF: 3 Eliquis 5 mg tablet 5 mg PO BID Qty: 180 RF: 3 Referrals / Follow Up: Erik Saravia MD [STAFF PHYSICIAN] - Pratibha Canales MD [Primary Care Provider] - Disposition Discharge Orders: Discharge Patient (Routine); Ordered 01/06/22 Ordered By: Dr. Erik Saravia
--- NOTE | 2022-01-06 08:12 | PCM.OPRPT ---
Report of Operation Date of Procedure: 01/06/22 Pre-Operative Diagnosis: Prostate cancer Post-Operative Diagnosis: same Surgery/Procedure Performed:: Placement of gold markers and spacer at risk gel matrix Description of Surgical Findings:: Patient was taken back to the operating room after smooth induction of anesthesia he was placed supine on the table. The genitals and perineum were prepped and draped in usual sterile fashion. I then introduced a biplanar ultrasound probe into the rectum and performed ultrasonography and identified the Denonvilliers' fascia the prostate mid base and apex and seminal vesicles. The spacer gel mix was then prepared on the back table per manufactures instruction. Under ultrasound guidance in the midline perineum a bevel needle down we advanced through the perineum below the prostate into the space of Denonvilliers' fascia. This space which could be identified by ultrasound with a bright white layer between the prostate and the rectum. I then injected a puff of normal saline to identify the space further. After I confirmed that the needle was in the correct space in the mid prostate and the space of Denonvilliers' fascia between the rectum and the prostate. Then over the course of 15 seconds the gel matrix was injected slowly there was nice separation between the prostate and the rectum at the gel matrix was injected. The position of the gel matrix was confirmed by ultrasound. Then the injection needle was removed intact. The penis and testicles were prepped and draped in usual sterile fashion, ultrasound probe was placed into the rectum and biplanar ultrasound was performed on the prostate. Identified the base mid and apex of the prostate identified the transition zone prostate. Then using a needle the first lounge car attendant was placed into the right base of the prostate, the second lounge car attendant was placed in the left base of the prostate, and the third core marker was placed in the right apex of the prostate after all 3 markers were placed the placement of the markers were confirmed by ultrasonography. Patient's perineum was cleaned patient was taken out of stirrups and then taken back to the PACU in good condition. Surgeon: spencer Type of Anesthesia: General Admit VTE Documentation VTE Present on Admission: No VTE Mechan Device Prophylaxis: SCD's VTE Pharm Prophylaxis ordered?: No
[2022-01-06 08:22] VITALS: BP 114/78; BP 127/83; PULSE 70; RESP 16; TEMP 36.5; O2SAT 98
[2022-01-06 08:30] VITALS: BP 110/80; BP 114/78; PULSE 84; RESP 16; O2SAT 100
[2022-01-06 08:31] LABS: Bedside Glucose 192 mg/dL (70-110)
[2022-01-06 08:45] VITALS: BP 103/75; BP 114/78; PULSE 70; RESP 16; O2SAT 99
[2022-01-06 08:55] VITALS: BP 102/76; BP 114/78; PULSE 84; RESP 16; TEMP 36.2; O2SAT 100
[2022-01-06 09:48] VITALS: BP 108/74; BP 114/78; PULSE 70; RESP 16; TEMP 36.1; O2SAT 97
== END 2022-01-06 23:59 | disposition home or self-care (01) ==
LOC: SDC 05:21 → AC 05:21
PROVIDERS: PCP Internal Medicine; Referring Provider Urology; Visit Provider Urology
PROC: (CPT 55874; principal; 2022-01-06 07:15)
DX: C61 Malignant neoplasm of prostate (principal); K74.60 Unspecified cirrhosis of liver; I11.0 Hypertensive heart disease with heart failure; I50.42 Chronic combined systolic (congestive) and diastolic (congestive) heart failure; I42.8 Other cardiomyopathies; I27.21 Secondary pulmonary arterial hypertension; I48.11 Longstanding persistent atrial fibrillation; G40.909 Epilepsy, unspecified, not intractable, without status epilepticus; Z79.4 Long term (current) use of insulin; E11.9 Type 2 diabetes mellitus without complications; Z87.891 Personal history of nicotine dependence; I25.10 Atherosclerotic heart disease of native coronary artery without angina pectoris; E78.5 Hyperlipidemia, unspecified; E78.00 Pure hypercholesterolemia, unspecified; Z86.73 Personal history of transient ischemic attack (TIA), and cerebral infarction without residual deficits; I25.2 Old myocardial infarction; G47.33 Obstructive sleep apnea (adult) (pediatric); Z87.19 Personal history of other diseases of the digestive system; Z79.01 Long term (current) use of anticoagulants; Z79.899 Other long term (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; Z95.810 Presence of automatic (implantable) cardiac defibrillator
CPT/HCPCS: 55876; 55874; 00902; 82962; 87426; C9803; J7120; J2405

== ENCOUNTER 2022-01-14 11:00 | Outpatient (CLI) | payer MEDICARE, OTHER, SELFPAY ==
--- NOTE | 2022-01-14 11:02 | MRI_ITS ---
MR Pelvis WO/W Contrast 01/14/2022 12:17 PM COMPARISON: None CLINICAL HISTORY: 71-year-old man with prostate cancer. TECHNIQUE: Axial T1-weighted and high-resolution axial T2-weighted MR images of the pelvis were obtained. Images were acquired for planning of radiation therapy. MRI/Pelvis W/WO Contrast IMPRESSION: 1) MR imaging scan done for planning of radiation therapy of prostate cancer. 2) Heterogeneous appearance of the gland is at least in part due to the known prostate cancer, as well as being consistent with benign prostatic hyperplasia. 3) There is likely bilateral involvement of tumor. No extracapsular extension. No seminal vesicle invasion. No evidence of local lymphadenopathy. Electronically Signed: Clark Vallejo MD at 22:15 EST ,
[2022-01-14 11:45] LABS: EGFR FINGERSTICK > 60.0000 mL/min (>60)
[2022-01-14 12:30] VITALS: BP 114/69; PULSE 90; RESP 18; O2SAT 96
[2022-01-14 12:45] VITALS: BP 104/71; PULSE 90; RESP 18; O2SAT 96
[2022-01-14 13:00] VITALS: BP 116/81; PULSE 90; RESP 18; O2SAT 96
[2022-01-14 13:15] VITALS: BP 112/69; PULSE 90; RESP 18; O2SAT 96
== END 2022-01-14 23:59 | disposition home or self-care (01) ==
LOC: MRI 11:02
PROVIDERS: PCP Internal Medicine; Visit Provider Student in an Organized Health Care Education/Training Program
DX: C61 Malignant neoplasm of prostate (principal)
CPT/HCPCS: 72197; A9575

== ENCOUNTER 2022-02-10 03:19 | Emergency (ER) | payer MEDICARE, OTHER, SELFPAY ==
[2022-02-10] VITALS (8 sets, daily range): BP systolic 91–123; BP diastolic 60–86; PULSE 74–100; RESP 12–16; TEMP 36.4; O2SAT 94–100; BMI 23.9
--- NOTE | 2022-02-10 03:42 | RAD_ITS ---
STUDY: X-RAY - RIGHT KNEE REASON FOR EXAM: Male, 71 years old patient with right-sided knee pain. TECHNIQUE: AP and crosstable lateral view(s) of the knee. COMPARISON: Prior comparison studies are not available for review at this time. FINDINGS: There is demineralization of the visualized distal femur. There is demineralization of the tibia and fibula. Normal proximal tibiofibular articulation. There is no demonstrated fracture. Normal medial femorotibial compartment. Normal lateral femorotibial compartment. There is mild degenerative arthrosis of the patellofemoral articulation. There is enthesophyte arising from the quadriceps tendon insertion onto the patella. There is no demonstrated joint effusion. There are atherosclerotic calcifications. There is soft tissue swelling. RAD/Knee 1 or 2 Views IMPRESSION: Osteoporosis and mild degenerative arthropathy and enthesopathy. Electronically Signed: Roseann Menjivar MD at 5:21 EDT ,
--- NOTE | 2022-02-10 03:42 | RAD_ITS ---
STUDY: X-RAY CHEST REASON FOR EXAM: Male, 71 years old patient with chest injury after fall. TECHNIQUE: Single AP portable view of the chest. COMPARISON: 01/20/2021. FINDINGS: Left-sided intracardiac pacemaker is present. The lungs are hyperexpanded. There is a nodular opacity within the right upper lobe measuring 2 cm in size. This is new since the previous study. There is diffuse interstitial thickening present in both lungs. There is question of patchy of right basilar airspace disease. There appears to be small right-sided pleural effusion. There is mild cardiac enlargement. Normal mediastinum and ashly. There is prominence of the pulmonary hilar arteries with peripheral pulmonary vascular congestion. There is atherosclerotic calcification of the aortic arch with tortuosity. There is demineralization of the osseous structures. Normal visualized ribs, clavicles, and shoulders. There is no demonstrated abnormality of the visualized soft tissue structures of the upper abdomen. RAD/Chest 1 View (Portable) IMPRESSION: 1. Cardiomegaly and pulmonary congestion. 2. Findings suggest right-sided multifocal pneumonia. 3. Possible right upper lobe pulmonary nodule. Suggest follow up imaging after treatment to exclude neoplasia. Electronically Signed: Roseann Menjivar MD at 5:12 EDT ,
--- NOTE | 2022-02-10 03:42 | RAD_ITS ---
STUDY: X-RAY - PELVIS AND RIGHT HIP REASON FOR EXAM: Male, 71 years old patient with right-sided hip pain. TECHNIQUE: 3 views of the pelvis and hip. COMPARISON: MRI of the pelvis dated 01/14/2022. FINDINGS: There is a non-specific bowel gas pattern. There are metallic opacities in the pelvis that may be secondary to brachytherapy treatment of prostate cancer. There is diffuse demineralization of the osseous structures. The sacrum and iliac wings are obscured by bowel gas and/or stool. Normal bilateral superior and inferior pubic rami. Normal pubic symphysis. Normal bilateral ischial tuberosities. There is an impacted displaced right femoral neck fracture. There is osteoarthritic spur formation of the acetabular rim. There is mild articular joint space narrowing of the hip. RAD/HIP, UNI W/ Pelvis 2-3 Views IMPRESSION: Acute impacted right subcapital femoral neck fracture. Electronically Signed: Roseann Menjivar MD at 5:16 EDT ,
--- NOTE | 2022-02-10 03:42 | CT_ITS ---
STUDY: CT BRAIN WITHOUT CONTRAST REASON FOR EXAM: Male, 71 years old patient on anticoagulation with recent fall. RADIATION DOSAGE (If Supplied By Facility): CTDIvol = ( 44.99 ) mGy, DLP = ( 846.73 ) mGycm TECHNIQUE: Transaxial CT imaging of the brain was performed without administration of intravenous contrast material. Multiplanar reformations are submitted for interpretation. Individualized dose optimization techniques were used for this CT. COMPARISON: CT of the head dated 10/30/2018 and 01/05/2019.. FINDINGS: Normal soft tissue structures. The patient has had a right-sided frontal craniotomy. There is mild cerebral atrophy with widening of the extra-axial spaces and ventricular dilatation. There are areas of decreased attenuation within the white matter tracts of the supratentorial brain, consistent with microvascular disease changes. There is encephalomalacia involving the right frontal, parietal and temporal lobes secondary to old infarct. There are small punctate calcifications of the basal ganglia which are seen in the aging brain as a normal variant. Normal brainstem. There is mild cerebellar atrophy. There is no intracranial hemorrhage. There is atherosclerotic calcification of the intracranial arteries. Normal visualized paranasal sinuses. CT/Brain/Head without Contrast IMPRESSION: 1. Chronic involutional changes of the brain. 2. Sequelae of large right MCA infarct. 3. No CT evidence of acute intracranial hemorrhage. Electronically Signed: Roseann Menjivar MD at 5:30 EDT ,
[2022-02-10] MEDS: Morphine 4 MG/ML Syringe IV ×2 (04:35→05:49)
[2022-02-10] MEDS: Ondansetron 4 MG/2 ML Vial IV (04:35)
--- NOTE | 2022-02-10 05:45 | EKG12_ITS ---
Test Reason : DYSRHYTHMIA Blood Pressure : / mmHG Vent. Rate : 094 BPM Atrial Rate : 094 BPM P-R Int : 176 ms QRS Dur : 162 ms QT Int : 442 ms P-R-T Axes : 056 232 048 degrees QTc Int : 552 ms Atrial-sensed ventricular-paced rhythm Biventricular pacemaker detected Abnormal ECG Confirmed by HOWARD BUSTILLO, BRADY ([id number]), purchase request editor BREANA STARK ([id number]) on 02/17/2022 10:33:25 AM Referred By: MARTIN Confirmed By:BRADY LAWRENCE MD
[2022-02-10] MEDS: 0.9% Normal Saline 1,000 ML 999 ML IV (05:57)
--- NOTE | 2022-02-10 06:05 | ED.RN ---
pt does not know meds. 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
[2022-02-10 07:06] LABS: Absolute Lymphocyte Count 0.11 X10^3/uL (0.83-4.51); Absolute Neutrophil Count 6.3 X10^3/uL (2.0-7.7); Basophil# 0.01 X10^3/uL; Basophil% 0.1 % (0-1); Eosinophil# 0.04 X10^3/uL; Eosinophils% 0.6 % (0-5); Hemoglobin 11.7 g/dL (13.0-16.5); Lymphocyte # 0.11 X10^3/ul (0.83-4.51); Lymphocyte % 1.6 % (19-41); Mean Corp Hgb Conc 34.4 g/dL (32-36); Mean Corpuscular Hgb 32.7 pg (27.0-32.0); Mean Platelet Vol. 10.8 fl (6.2-12.0); Monocyte# 0.27 X10^3/uL; NRBC Flagged by Analyzer 0 % (0-5); Neutrophil # 6.28 X10^3/uL (2.7-7.7); Neutrophil % 93.4 % (47-70); POSITIVE COUNT YES; POSITIVE DIFFERENTIAL YES; POSITIVE MORPHOLOGY YES; Platelet Count 75 K/mm3 (150-450); RBC Distribution Width CV 14.3 % (11.6-14.6); RBC Distribution Width SD 48.6 fl (35.1-43.9); Red Blood Count 3.58 M/mm3 (4.6-6.2); White Blood Count 6.7 K/mm3 (4.4-11.0)
[2022-02-10 07:10] LABS: Differential Indicated SCAN CRITERIA MET; Partial Thromboplast Time 34.8 Seconds (24.1-36.2)
[2022-02-10 07:11] LABS: International Normalized Ratio 1.5; Prothrombin Time (Protime)PT. 17.6 SECONDS (11.7-14.9)
--- NOTE | 2022-02-10 07:11 | EDS_ITS ---
HPI History of Present Illness Chief Complaint: Fall Narrative Narrative: Patient is a 71-year-old male with complex medical history of previous CVA paroxysmal atrial fibrillation currently on Eliquis as well as chronic kidney disease cirrhosis and prostate cancer currently being treated with chemotherapy and radiation. He has a promotions team leader who helps him out at home. Last night around midnight he states that he lost his balance as he turned and fell landing on his right side. Gas Appliance Adjuster states she witnessed this and there was no loss of consciousness or head injury. She states it took about 30 minutes but she was able to get him up and get him to bed. However as time passed his pain began to increase and he felt like he could not ambulate and therefore she got him into the hospital for evaluation. [facility] Medical History Ambulates with cane Anticoagulant long-term use Ascites Asthma Atherosclerosis of coronary artery of [place] heart without angina pectoris Atrial fibrillation and flutter Back pain Benign brain tumor Cholelithiasis Chronic combined systolic and diastolic CHF (congestive heart failure) Chronic kidney disease (CKD) Cirrhosis of liver Cirrhosis of liver with ascites CPAP (continuous positive airway pressure) dependence Diabetes Diabetes mellitus, type II Essential (primary) hypertension Former smoker History of atrial fibrillation History of CVA (cerebrovascular accident) History of ulceration Hyperlipidemia Injury of back Insulin dependent diabetes mellitus Longstanding persistent atrial fibrillation Non-rheumatic tricuspid valve insufficiency Nonischemic cardiomyopathy NSTEMI (non-ST elevated myocardial infarction) (10/09/19) ALBINO (obstructive sleep apnea) 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 Right inguinal hernia Right ventricular systolic dysfunction Secondary pulmonary arterial hypertension Seizure disorder Sleep apnea Stasis edema of both lower extremities Stroke/cerebrovascular accident Thyroid disease Wears glasses Home Medications albuterol sulfate 2 puff INHALATION Q6H PRN PRN 10/30/18 [History Last Taken 01/31/19] insulin glargine 28 unit SQ QHS 10/30/18 [History Last Taken 01/30/19] omeprazole 20 mg PO BID 10/30/18 [History Last Taken 01/31/19] topiramate 25 mg PO BID 10/30/18 [History Last Taken 01/31/19] nadolol 20 mg tablet 10 mg PO DAILY #45 tab 04/15/21 [Rx Last Taken Unknown] apixaban 5 mg tablet 5 mg PO BID #180 tab 04/16/21 [Rx Last Taken 01/02/22] tamsulosin 0.4 mg capsule 0.4 mg PO QHS cap 05/08/21 [History Last Taken Unknown] bicalutamide 50 mg tablet 50 mg PO DAILY 12/10/21 [History Last Taken Unknown] calcium 650 mg-vitamin D3 12.5 mcg-vitamin K 40 mcg chewable tablet 1 tab PO DAILY tab 12/10/21 [History Last Taken Unknown] cyanocobalamin (vitamin B-12) 2,500 mcg tablet 2,500 mcg PO DAILY 12/10/21 [History Last Taken Unknown] lisinopril 40 mg tablet 40 mg PO DAILY 12/10/21 [History Last Taken Unknown] loratadine 10 mg capsule 10 mg PO DAILY PRN 12/10/21 [History Last Taken Unknown] multivit,Ca,min-iron 8 mg-folic acid 200 mcg-lycopene 600 mcg tablet 1 tab PO DAILY tab 12/10/21 [History Last Taken Unknown] omega 7-uqi-jos-fish oil 60 mg-90 mg-500 mg capsule 1 cap PO DAILY 12/10/21 [History Last Taken Unknown] ciprofloxacin HCl [Cipro] 500 mg PO BID #14 tab 01/06/22 [Rx Last Taken Unknown] bumetanide 1 mg tablet 1 mg PO DAILY tab 02/03/22 [History Last Taken Unknown] Allergy/AdvReac Type Severity Reaction Status Date / Time oxycodone AdvReac hallucinati Verified 02/10/22 03:40 ons Family History Daughter Heart disease valve replacement/chf Diabetes Mother Thyroid disorder Surgical History Biventricular ICD (implantable cardioverter-defibrillator) in place (10/12/19) H/O excision of tumor of brain meninges (2011) History of cardiac catheterization History of cardioversion (05/05/20) History of left heart catheterization (08/31/19) History of percutaneous coronary intervention (10/10/19) History of right and left heart catheterization History of tonsillectomy Social History Smoking Status: Former smoker how long ago did patient quit smokin years alcohol intake: never substance use type: does not use ROS ROS ED Constitutional Constitutional ED: Denies chills or fever(s) ENT ENT ED: Denies sore throat Cardiovascular Cardiovascular: Denies chest pain Respiratory/Chest Respiratory/Chest: Denies cough or dyspnea Gastrointestinal Gastrointestinal: Denies abdominal pain, diarrhea, nausea or vomiting Genitourinary Genitourinary ED: Denies dysuria Musculoskeletal Musculoskeletal: Reports other Details: Positive right hip and knee pain ; Denies back pain, myalgias or neck pain Integumentary Denies Abrasions or rash Neurologic Neurologic: Denies headache(s) Hematologic/Lymphatic Hematologic/Lymphatic: Reports easy bleeding and easy bruising EXAM Physical Exam Const Vital Signs: 02/10/22 03:20 02/10/22 03:26 02/10/22 04:39 Temperature 97.5 F L Temperature Source Temporal Pulse Rate 100 97 Respiratory Rate 16 Blood Pressure 91/60 123/86 H Blood Pressure Mean 70 98 Pulse Ox 94 97 Oxygen Delivery Method Room Air 02/10/22 06:00 Temperature Temperature Source Pulse Rate Respiratory Rate Blood Pressure 117/68 Blood Pressure Mean 84 Pulse Ox 98 Oxygen Delivery Method Room Air Positive well nourished and well developed General Appearance ED: well developed Eyes PERRL and EOMs intact bilaterally Neck supple and no JVD Chest Wall palpation of chest normal Resp normal respiratory effort Resp Narrative: Patient's breath sounds are diminished throughout with diffuse rhonchi but no nasal flaring retractions tachypnea or accessory muscle use Cardio regular rate and regular rhythm GI normal to inspection, nondistended, normoactive bowel sounds, non-tender, non- distended and no masses GI Narrative: No voluntary guarding or rigidity no pulsatile mass Auscultation: normoactive bowel sounds Palpation: soft Back/Spine Back/Spine Narrative: No bony deformity or step-off of the cervical thoracic or lumbar spine no midline pain on palpation Extremity Extremity Narrative: Pelvis is stable there is no obvious shortening or external rotation of either lower extremity. Patient does have pain on palpation along the right greater trochanter region. Active and passive range of motion is severely limited secondary to pain. There is also pain with palpation of the anterior right knee without bony deformity joint effusion or ligamentous laxity Neuro oriented x3 and CN's II-XII intact bilaterally Sensorium / Orientation: alert Psych mental status grossly normal Skin no rashes or lesions noted Skin Narrative: No abrasions or ecchymosis noted MDM MDM MDM Narrative Medical decision making narrative: Patient presented to the ER after a mechanical fall. He is on a blood thinner but reported not strike his head or have loss of consciousness. The promotions team leader and patient states that they were able to get the patient up and he was able to initially stand after the fall but as time is past his pain is worsened and now he has difficulty doing this. With concern for underlying trauma imaging studies were ordered. CT of the head revealed no acute skull fracture or brain bleed. X-ray of the hip however did show an impacted subcapital femoral neck fracture which is consistent with the report that he fell as well as he was initially able to bear weight. Chest x- ray questions and pneumonia and as patient was hypoxic upon arrival there is concern for true infection especially as he is immunosuppressed. I discussed the case with orthopedic surgery to ensure they felt comfortable doing his case based on his severe medical comorbidities and blood thinner use. At this time they recommend because of his medical comorbidities he should most likely go to a higher level of care. [facility] and were contacted at this time they do not have any beds available to accept the patient therefore we will look at going self towards [facility] where patient has technically been receiving his cancer care and if there are no beds available we will have no choice but to admit him at this facility. However at this time plan of care is transferred to a higher level facility Lab Data Attestation: I reviewed the patient's lab results. Labs: Laboratory Results - last 24 hr 02/10/22 02/10/22 02/10/22 06:43 06:43 06:43 WBC 6.7 RBC 3.58 L Hgb 11.7 L Hct 34.0 L MCV 95.0 H MCH 32.7 H MCHC 34.4 RDW Std Deviation 48.6 H RDW Coeff of Yonathan 14.3 Plt Count 75 L MPV 10.8 Immature Gran % (Auto) 0.300 Neut % (Auto) 93.4 H Lymph % (Auto) 1.6 L Wheeler % (Auto) 4.0 Eos % (Auto) 0.6 Baso % (Auto) 0.1 Absolute Neuts (auto) 6.3 Absolute Lymphs (auto) 0.11 L Nucleated RBC % 0 Differential Comment COMMENT Platelet Estimate MOD DEC PT 17.6 H INR 1.5 APTT 34.8 Sodium 139 Potassium 4.0 Chloride 111 H Carbon Dioxide 25.0 Anion Gap 3 L BUN 26 H Creatinine 1.38 H Estim Creat Clear Calc 50.52 Est GFR (MDRD) Af Amer 66 Est GFR (MDRD) Non-Af 54 L BUN/Creatinine Ratio 18.8 Glucose 232 H Lactic Acid Calcium 9.2 Phosphorus Magnesium 2.0 02/10/22 02/10/22 06:43 06:43 WBC RBC Hgb Hct MCV MCH MCHC RDW Std Deviation RDW Coeff of Yonathan Plt Count MPV Immature Gran % (Auto) Neut % (Auto) Lymph % (Auto) Wheeler % (Auto) Eos % (Auto) Baso % (Auto) Absolute Neuts (auto) Absolute Lymphs (auto) Nucleated RBC % Differential Comment Platelet Estimate PT INR APTT Sodium Potassium Chloride Carbon Dioxide Anion Gap BUN Creatinine Estim Creat Clear Calc Est GFR (MDRD) Af Amer Est GFR (MDRD) Non-Af BUN/Creatinine Ratio Glucose Lactic Acid 0.8 Calcium Phosphorus 3.5 Magnesium Radiography Diagnostic Testing: Clinical Impression(s) from Imaging Studies Brain CT 02/10/22 03:42 IMPRESSION: 1. Chronic involutional changes of the brain. 2. Sequelae of large right MCA infarct. 3. No CT evidence of acute intracranial hemorrhage. Electronically Signed: Roseann Menjivar MD at 5:30 EDT Reading Location ID and State: [facility] / [place] , Service support , Chest X-Ray 02/10/22 03:42 IMPRESSION: 1. Cardiomegaly and pulmonary congestion. 2. Findings suggest right-sided multifocal pneumonia. 3. Possible right upper lobe pulmonary nodule. Suggest follow up imaging after treatment to exclude neoplasia. Electronically Signed: Roseann Menjivar MD at 5:12 EDT , Hip/Pelvis X-Ray 02/10/22 03:42 IMPRESSION: Acute impacted right subcapital femoral neck fracture. Electronically Signed: Roseann Menjivar MD at 5:16 EDT , Knee X-Ray 02/10/22 03:42 IMPRESSION: Osteoporosis and mild degenerative arthropathy and enthesopathy. Electronically Signed: Roseann Menjivar MD at 5:21 EDT , Chest x-ray is interpreted by the emergency medicine physician shows cardiomegaly with pulmonary vascular congestion Discharge Plan Triage Chief Complaint: Fall Other Complaint: Lower Extremity Injury ED Provider: Rd Steele Dx/Rx/DC Orders Clinical Impression: Closed fracture of neck of right femur, Current use of fci anticoagulation, Prostate cancer Prescriptions: No Action tamsulosin 0.4 mg capsule 0.4 mg PO QHS RF: 0 bicalutamide [Casodex] 50 mg tablet 50 mg PO DAILY RF: 0 lisinopril 40 mg tablet 40 mg PO DAILY RF: 0 Centrum Ultra Men's 8 mg iron- 200 mcg-600 mcg tablet 1 tab PO DAILY RF: 0 loratadine 10 mg capsule 10 mg PO DAILY PRN (Reason: ALLERGIES) RF: 0 omega 0-vjq-pfk-fish oil [Fish Oil] 60-90-500 mg capsule 1 cap PO DAILY RF: 0 cyanocobalamin (vitamin B-12) 2,500 mcg tablet 2,500 mcg PO DAILY RF: 0 calcium-vitamin D3-vitamin K [Viactiv] 650 mg-12.5 mcg-40 mcg tablet,chewable 1 tab PO DAILY RF: 0 topiramate 25 tablet 25 mg PO BID RF: 0 omeprazole 20 capsule,delayed release(DR/EC) 20 mg PO BID RF: 0 albuterol sulfate 108 HFA aerosol inhaler 2 puff inhalation Q6H PRN PRN (Reason: Sob &/Or Wheezing) RF: 0 insulin glargine 100 UNIT/ML insulin pen 28 unit SQ QHS RF: 0 ciprofloxacin HCl [Cipro] 500 mg tablet 500 mg PO BID Qty: 14 RF: 0 nadolol 20 mg tablet 10 mg PO DAILY Qty: 45 RF: 3 Eliquis 5 mg tablet 5 mg PO BID Qty: 180 RF: 3 bumetanide 1 mg tablet 1 mg PO DAILY RF: 0 Primary Care Provider: Pratibha Canales Referrals: Pratibha Canales MD [Primary Care Provider] - Disposition Disposition: Acute Care Hospital
[2022-02-10] MEDS: Vancomycin IV 1,000 MG/200 ML BAG 200 MG IV (07:17)
[2022-02-10 07:19] LABS: Anion Gap 3 (5-15); BUN 26 mg/dL (7-18); BUN/Creat Ratio 18.8 RATIO (10-20); Calcium,Total 9.2 mg/dL (8.5-10.1); Chloride 111 mmol/L (98-107); Creatinine, Serum 1.38 mg/dL (0.70-1.30); EST Glomerular Filtration Rate 54 mL/min (>60); Est Glom Filt Rate - Afr Amer 66 mL/min (>60); Estimated Creatinine Clearance 50.52 ml/min; Glucose 232 mg/dL (74-106); Sodium Level 139 mmol/L (136-145)
[2022-02-10 07:23] LABS: Lactic Acid 0.8 mmol/L (0.4-1.9)
[2022-02-10 07:32] LABS: Platelet Estimate MOD DEC (ADEQ)
[2022-02-10 07:35] LABS: Phosphorus 3.5 mg/dL (2.5-4.9)
[2022-02-10] MEDS: morphine 8 MG/ML Syringe 6 MG IV (09:05)
--- NOTE | 2022-02-10 09:08 | ED.RN ---
PT O2 SAT CHECKED WITH PORTABLE PRIOR TO MED ADMINISTRATION. PULSE OX READING ON 6 LITERS NC IN MOUTH AT 99
--- NOTE | 2022-02-10 10:42 | NURSING ---
Addendum entered by Wen Bell 02/10/22 10:44: Bob, daughter Original Note: Patient daughter left to eat, phone number [phone] call if changes
== END 2022-02-10 14:24 | disposition short-term general hospital (02) ==
PROVIDERS: Emergency Provider Emergency Medicine; PCP Internal Medicine; Visit Provider Emergency Medicine
DX: S72.091A Other fracture of head and neck of right femur, initial encounter for closed fracture (principal); K74.60 Unspecified cirrhosis of liver; I13.0 Hypertensive heart and chronic kidney disease with heart failure and stage 1 through stage 4 chronic kidney disease, or unspecified chronic kidney disease; I50.42 Chronic combined systolic (congestive) and diastolic (congestive) heart failure; I42.8 Other cardiomyopathies; I27.21 Secondary pulmonary arterial hypertension; E11.22 Type 2 diabetes mellitus with diabetic chronic kidney disease; I48.0 Paroxysmal atrial fibrillation; G40.909 Epilepsy, unspecified, not intractable, without status epilepticus; C61 Malignant neoplasm of prostate; Z79.4 Long term (current) use of insulin; J18.9 Pneumonia, unspecified organism; Z79.01 Long term (current) use of anticoagulants; I25.10 Atherosclerotic heart disease of native coronary artery without angina pectoris; W19.XXXA Unspecified fall, initial encounter; N18.9 Chronic kidney disease, unspecified; E78.5 Hyperlipidemia, unspecified; J45.909 Unspecified asthma, uncomplicated; I25.2 Old myocardial infarction; Z79.899 Other long term (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; Z86.73 Personal history of transient ischemic attack (TIA), and cerebral infarction without residual deficits; Z87.891 Personal history of nicotine dependence
CPT/HCPCS: 70450; 71045; 73502; 73560; 80048; 83605; 83735; 84100; 84145; 85025; 85610; 85730; 87040; 87428; 93005; 96361; 96365; 96366; 96367; 96375; 96376; 99285; J2405

== ENCOUNTER 2022-02-19 11:05 | Inpatient (IN) | payer MEDICARE, OTHER, SELFPAY ==
[2022-02-19 11:41] VITALS: BP 109/57; PULSE 73; RESP 18; TEMP 36.5; O2SAT 92; BMI 27.2
--- NOTE | 2022-02-19 12:23 | NURSING ---
Pt c/o pain. Rated 9/[address] Alex alexander. Suzette Burroughs.
[2022-02-19] MEDS: HYDROmorphone 2 MG TABLET 4 MG PO (13:09)
--- NOTE | 2022-02-19 13:45 | HP.PCM_ITS ---
HPI - General General Date of Admission: 02/19/22 HPI Narrative 02/10/2022 STEPH BAUMANN, is a 71 Male who presents to [facility] Emergency Department with fall. 02/10/2022 EKG atrial sensed ventricular-paced rhythm, biventricular pacemaker detected. Prostate cancer currently treated with chemotherapy, radiation. Lost balance, fell on right side, unable to walk. CT brain negative. X-ray shows right hip fracture. Due to multiple medical problems including prostate cancer, chronic systolic congestive heart failure, FARIAS cirrhosis, recommend transfer to tertiary medical center for further care. 02/10/[address] [facility]. Right hip fracture pain controlled with IV morphine. Hold Eliquis, prepare for surgery. 02/11/2022 Cardiology consulted for preoperative clearance. 02/13/2022 Orthopedics performed right hip hemiarthroplasty. Medical records limited. 02/19/2022 Admit to TCU with debility, here for rehabilitation, strengthening, prior to discharge home with caregiver. [facility] Medical History (Updated 02/19/22 @ 13:[address] Kaden Johnson MD) Ambulates with cane Anticoagulant long-term use Ascites Asthma Atherosclerosis of coronary artery of [place] heart without angina pectoris Atrial fibrillation and flutter Back pain Benign brain tumor Cholelithiasis Chronic combined systolic and diastolic CHF (congestive heart failure) Chronic kidney disease (CKD) Cirrhosis of liver Cirrhosis of liver with ascites CPAP (continuous positive airway pressure) dependence Diabetes Diabetes mellitus, type II Essential (primary) hypertension Former smoker History of atrial fibrillation History of CVA (cerebrovascular accident) History of ulceration Hyperlipidemia Injury of back Insulin dependent diabetes mellitus Longstanding persistent atrial fibrillation Non-rheumatic tricuspid valve insufficiency Nonischemic cardiomyopathy NSTEMI (non-ST elevated myocardial infarction) (10/09/19) ALBINO (obstructive sleep apnea) 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 Right inguinal hernia Right ventricular systolic dysfunction Secondary pulmonary arterial hypertension Seizure disorder Sleep apnea Stasis edema of both lower extremities Stroke/cerebrovascular accident Thyroid disease Wears glasses Home Medications insulin glargine 27 unit SQ QHS 10/30/18 [History Last Taken 01/30/19] omeprazole 20 mg PO BID 10/30/18 [History Last Taken 01/31/19] topiramate 25 mg PO BID 10/30/18 [History Last Taken 01/31/19] tamsulosin 0.4 mg capsule 0.4 mg PO QHS cap 05/08/21 [History Last Taken 02/18/22 10:31] bicalutamide 50 mg tablet 50 mg PO DAILY 12/10/21 [History Last Taken 02/18/22 10:32] lisinopril 40 mg tablet 40 mg PO DAILY 12/10/21 [History Last Taken Unknown] loratadine 10 mg capsule 10 mg PO DAILY 12/10/21 [History Last Taken 02/18/22 10:32] bumetanide 1 mg tablet 1 mg PO DAILY tab 02/03/22 [History Last Taken 02/12/22 08:55] Eliquis 5 mg PO BID 02/19/22 [History Last Taken 02/16/22 08:57] cyanocobalamin (vitamin B-12) [Vitamin B-12] 250 mcg PO DAILY 02/19/22 [History Last Taken 02/18/22 10:32] multivitamin 1 tab PO DAILY 02/19/22 [History Last Taken 02/18/22 10:31] nadolol 10 mg PO DAILY 02/19/22 [History Last Taken Unknown] spironolactone 25 mg PO DAILY 02/19/22 [History Last Taken 02/12/22 08:57] Allergy/AdvReac Type Severity Reaction Status Date / Time oxycodone AdvReac hallucinati Verified 02/10/22 03:40 ons Family History Daughter Heart disease valve replacement/chf Diabetes Mother Thyroid disorder Surgical History (Updated 02/19/22 @ 13:[address] Kaden Johnson MD) Biventricular ICD (implantable cardioverter-defibrillator) in place (10/12/19) H/O excision of tumor of brain meninges (2011) History of arthroplasty of right hip History of cardiac catheterization History of cardioversion (05/05/20) History of left heart catheterization (08/31/19) History of percutaneous coronary intervention (10/10/19) History of right and left heart catheterization History of right hip hemiarthroplasty History of tonsillectomy Social History (Updated 02/19/22 @ 14:[address] Kaden Johnson MD) household members: none Smoking Status: Former smoker how long ago did patient quit smokin years alcohol intake: never substance use type: does not use ROS Constitutional Constitutional: Denies chills, fever(s) or weight gain ENT HEENT: Denies headache(s), nasal congestion or nasal discharge Cardiovascular Cardiovascular: Denies chest pain or palpitations Respiratory/Chest Respiratory/Chest: Denies cough, excessive phlegm production or shortness of breath with exertion Gastrointestinal Gastrointestinal: Denies abdominal pain, nausea or vomiting Genitourinary Genitourinary: Denies dysuria Musculoskeletal Musculoskeletal: Denies joint pain or joint swelling Integumentary Integumentary: Denies rash or wounds Neurologic Neurologic: Denies focal weakness, numbness or tingling Psychiatric Psychiatric: Denies anxiety, auditory hallucinations, depression, homicidal ideation or suicidal ideation Vital Signs Vital Signs Vital Signs: 02/19/22 11:41 Temperature 97.7 F L Temperature Source Temporal Pulse Rate 73 Pulse Rhythm Regular Pulse Strength Normal (2+) Respiratory Rate 18 Respiratory Effort Normal Respiratory Depth Normal Respiratory Pattern Normal Blood Pressure 109/57 L Blood Pressure Mean 74 Blood Pressure Source Monitor Blood Pressure Position Sitting Blood Pressure Location Left Arm Pulse Ox 92 Oxygen Delivery Method Room Air Physical Exam Const alert General Appearance: cooperative HEENT normocephalic Eyes PERRL and EOMs intact bilaterally Neck supple, no JVD and no carotid bruits Resp normal respiratory effort, normal air movement and clear to auscultation bilaterally Cardio regular rate and regular rhythm GI normal to inspection, nondistended, normoactive bowel sounds, non-tender and non-distended Extremity normal capillary refill General Extremity: Negative for edema Skin no rashes or lesions noted General Skin Exam: no breakdown Psych affect normal Appearance: appropriate Results Lab / Micro Data Micro: Microbiology 02/19/22 13:10 Nasal Secretion SARS-CoV-2 Antigen (Rapid) - Final Assessment & Plan Assessment/Plan (1) Debility: (2) Closed right hip fracture: (3) Prostate cancer: (4) Stroke: (5) Atrial fibrillation: (6) Chronic kidney disease, stage 3a: (7) Cirrhosis of liver: (8) FARIAS (nonalcoholic steatohepatitis): (9) Chronic systolic congestive heart failure: (10) Asthma: (11) Diabetes mellitus: (12) Gastroesophageal reflux disease: (13) Seizure disorder: (14) Benign prostate hyperplasia: PLAN: 71 year old male with below past medical history hospitalized for right hip fracture, underwent right hip hemiarthroplasty 02/13/2022, admitted to TCU with debility, here for rehabilitation, strengthening, prior to discharge home alone. * Debility - PT/OT. * Cognition - ST. * Pain - Tylenol 1000mg q6h prn pain (1-3), Oxycodone 10mg q4h prn pain (4-5), Hydromorphone 6mg q4h prn pain (6-10). * Bowel - Miralax 17gm twice daily, Senna/colace 2 tablets bid, Dulcolax 10mg daily prn. * Adult immunization - Administer pneumonia vaccine, flu vaccine, covid19 vaccine as appropriate. * DVT prophylaxis - Not necessary, already on Eliquis. * Atrial fibrillation - Nadolol 20mg daily, Eliquis 5mg bid. * Prostate cancer - Casodex 50mg daily, radiation therapy per Dr. Sal. * Chronic systolic congestive heart failure - Nadolol 20mg daily, Lisinopril 40mg daily, Aldactone 25mg daily, bumex 1mg daily. * Vitamin B12 deficiency - B12 250mcg daily. * Diabetes Mellitus II - Glargine 27 units qhs. * Allergic rhinitis - Loratadine 10mg daily. * Nutrition - MVI daily. * GERD - Pantoprazole 20mg daily. * BPH - Tamsulosin 0.4mg daily. * Seizure disorder - Topamax 25mg bid.
[2022-02-19 15:46] LABS: Bedside Glucose 153 mg/dL (74-106)
[2022-02-19] MEDS: Topiramate 25 MG Tablet PO (17:05)
[2022-02-19] MEDS: Polyethylene Glycol 3350 17 GM PACKET PO (17:05)
[2022-02-19] MEDS: Tamsulosin HCl 0.4 MG Capsule PO (17:05)
[2022-02-19] MEDS: Senna/Docusate Sodium 1 Tablet 2 TABLET PO (17:05)
--- NOTE | 2022-02-19 18:21 | NURSING ---
While straight cathing patient, patient was on speaker phone with EDGAR, patient told POA that we did not feed him since he has been here. [employer] offered multiple times to order food and snacks, as did this nurse, to which patient replied I dont want anything right now I am not hungry.
[2022-02-19] MEDS: HYDROmorphone 2 MG TABLET 6 MG PO (19:52)
[2022-02-19] MEDS: Insulin Glargine-YFGN 100 UNIT/ML Pen 27 UNIT SC (21:12)
[2022-02-19 21:16] LABS: Bedside Glucose 178 mg/dL (74-106)
[2022-02-19] MEDS: traMADol 50 MG Tablet PO (21:18)
[2022-02-19] MEDS: Acetaminophen 500 MG Tablet 1000 MG PO (21:18)
[2022-02-20] MEDS: HYDROmorphone 2 MG TABLET 6 MG PO ×2 (01:56→08:51)
[2022-02-20 05:00] VITALS: BP 110/54; PULSE 75; RESP 16; TEMP 37.1; O2SAT 99
[2022-02-20] MEDS: Nadolol 20 MG Tablet PO (06:24)
[2022-02-20] MEDS: Topiramate 25 MG Tablet PO ×2 (06:25→17:45)
[2022-02-20] MEDS: Senna/Docusate Sodium 1 Tablet 2 TABLET PO ×2 (06:25→17:45)
[2022-02-20] MEDS: Bumetanide 0.5 MG Tablet 1 MG PO (06:25)
[2022-02-20] MEDS: Cyanocobalamin 500 MCG Tablet 250 MCG PO (06:26)
[2022-02-20] MEDS: Acetaminophen 500 MG Tablet 1000 MG PO (06:27)
[2022-02-20] MEDS: Loratadine 10 MG Tablet PO (06:27)
[2022-02-20] MEDS: APIXABAN 5 MG TABLET PO ×2 (06:27→17:45)
[2022-02-20] MEDS: Polyethylene Glycol 3350 17 GM PACKET PO ×2 (06:27→17:45)
[2022-02-20] MEDS: Spironolactone 25 MG Tablet PO (06:27)
[2022-02-20] MEDS: Lisinopril 40 MG Tablet PO (06:28)
[2022-02-20] MEDS: BICALUTAMIDE 50 MG TABLET PO (06:28)
[2022-02-20] MEDS: Pantoprazole Sodium 20 MG Tablet PO (06:28)
[2022-02-20] MEDS: traMADol 50 MG Tablet PO (06:28)
[2022-02-20 06:31] LABS: Bedside Glucose 126 mg/dL (74-106)
[2022-02-20] MEDS: Glucerna Shake 120 ML LIQUID PO ×3 (08:55→17:47)
[2022-02-20] MEDS: Multivitamins,Therapeutic Tablet 1 TABLET PO (08:56)
[2022-02-20] MEDS: Tuberculin,Purif.prot.deriv. 50 TU/ML Vial 0.1 ML ID (08:57)
--- NOTE | 2022-02-20 09:31 | NURSING ---
Pt bladder scanned for 667 and unable to urinate, Dr. Johnson updated N.O. insert york catheter. 675cc of dark katia urine drained from bladder.
[2022-02-20 11:15] LABS: Bedside Glucose 174 mg/dL (74-106)
[2022-02-20 15:35] VITALS: BP 95/58; PULSE 70; RESP 16; TEMP 36.3; O2SAT 94
[2022-02-20 15:56] LABS: Bedside Glucose 148 mg/dL (74-106)
[2022-02-20] MEDS: Tamsulosin HCl 0.4 MG Capsule PO (17:45)
[2022-02-20] MEDS: Bisacodyl 5 MG Tablet 10 MG PO (17:48)
[2022-02-20 21:10] LABS: Bedside Glucose 198 mg/dL (74-106)
[2022-02-20] MEDS: Insulin Glargine-YFGN 100 UNIT/ML Pen 27 UNIT SC (21:33)
[2022-02-21 05:00] VITALS: BP 135/81; PULSE 70; RESP 16; TEMP 37.1; O2SAT 96
[2022-02-21] MEDS: Nadolol 20 MG Tablet PO (05:25)
[2022-02-21] MEDS: BICALUTAMIDE 50 MG TABLET PO (05:25)
[2022-02-21] MEDS: Bumetanide 0.5 MG Tablet 1 MG PO (05:25)
[2022-02-21] MEDS: APIXABAN 5 MG TABLET PO (05:25)
[2022-02-21] MEDS: Lisinopril 40 MG Tablet PO (05:25)
[2022-02-21] MEDS: HYDROmorphone 2 MG TABLET 6 MG PO ×2 (05:25→21:22)
[2022-02-21] MEDS: Senna/Docusate Sodium 1 Tablet 2 TABLET PO ×2 (05:25→16:49)
[2022-02-21] MEDS: Spironolactone 25 MG Tablet PO (05:25)
[2022-02-21] MEDS: Cyanocobalamin 500 MCG Tablet 250 MCG PO (05:26)
[2022-02-21] MEDS: Pantoprazole Sodium 20 MG Tablet PO (05:26)
[2022-02-21] MEDS: Topiramate 25 MG Tablet PO ×2 (05:26→16:50)
[2022-02-21] MEDS: Loratadine 10 MG Tablet PO (05:26)
[2022-02-21 06:20] LABS: Bedside Glucose 132 mg/dL (74-106)
[2022-02-21 06:45] LABS: Absolute Lymphocyte Count 0.28 X10^3/uL (0.83-4.51); Absolute Neutrophil Count 6.6 X10^3/uL (2.0-7.7); Basophil# 0.03 X10^3/uL; Basophil% 0.4 % (0-1); Eosinophil# 0.48 X10^3/uL; Hemoglobin 8.3 g/dL (13.0-16.5); Lymphocyte # 0.28 X10^3/ul (0.83-4.51); Lymphocyte % 3.5 % (19-41); Mean Corp Hgb Conc 33.2 g/dL (32-36); Mean Corpuscular Hgb 32.2 pg (27.0-32.0); Mean Corpuscular Volume 96.9 fL (80-94); Mean Platelet Vol. 10.4 fl (6.2-12.0); Monocyte# 0.46 X10^3/uL; Monocyte% 5.7 % (0-10); NRBC Flagged by Analyzer 0 % (0-5); Neutrophil # 6.61 X10^3/uL (2.7-7.7); Neutrophil % 82.5 % (47-70); POSITIVE DIFFERENTIAL YES; Platelet Count 269 K/mm3 (150-450); RBC Distribution Width CV 15.3 % (11.6-14.6); Red Blood Count 2.58 M/mm3 (4.6-6.2)
[2022-02-21 06:49] LABS: Differential Indicated SCAN CRITERIA MET
[2022-02-21 06:59] LABS: Anisocytosis 1+; Macrocytosis 1+
[2022-02-21 07:07] LABS: Anion Gap 4 (5-15); BUN 26 mg/dL (7-18); BUN/Creat Ratio 21.8 RATIO (10-20); Calcium,Total 8.6 mg/dL (8.5-10.1); Chloride 111 mmol/L (98-107); Creatinine, Serum 1.19 mg/dL (0.70-1.30); EST Glomerular Filtration Rate 64 mL/min (>60); Est Glom Filt Rate - Afr Amer 78 mL/min (>60); Estimated Creatinine Clearance 58.59 ml/min; Glucose 135 mg/dL (74-106); Sodium Level 140 mmol/L (136-145)
[2022-02-21] MEDS: Multivitamins,Therapeutic Tablet 1 TABLET PO (08:08)
[2022-02-21] MEDS: Glucerna Shake 120 ML LIQUID PO ×3 (08:08→16:49)
--- NOTE | 2022-02-21 10:12 | NURSING ---
Pts hgb 8.3 Dr. Johnson update and N.O. to recheck cbc with Diff tomorrow.
[2022-02-21 16:00] VITALS: BP 101/61; PULSE 70; RESP 20; TEMP 36.6; O2SAT 98
[2022-02-21] MEDS: Tamsulosin HCl 0.4 MG Capsule PO (16:48)
[2022-02-21] MEDS: Polyethylene Glycol 3350 17 GM PACKET PO (16:49)
[2022-02-21 21:10] LABS: Bedside Glucose 171 mg/dL (74-106)
[2022-02-21] MEDS: Insulin Glargine-YFGN 100 UNIT/ML Pen 27 UNIT SC (21:23)
[2022-02-21 22:00] VITALS: PULSE 70; O2SAT 70
[2022-02-22 05:00] VITALS: BP 110/67; PULSE 70; RESP 18; TEMP 36; O2SAT 94
[2022-02-22] MEDS: Topiramate 25 MG Tablet PO ×2 (05:11→18:05)
[2022-02-22] MEDS: Bumetanide 0.5 MG Tablet 1 MG PO (05:11)
[2022-02-22] MEDS: BICALUTAMIDE 50 MG TABLET PO (05:11)
[2022-02-22] MEDS: Spironolactone 25 MG Tablet PO (05:11)
[2022-02-22] MEDS: Lisinopril 40 MG Tablet PO (05:11)
[2022-02-22] MEDS: Cyanocobalamin 500 MCG Tablet 250 MCG PO (05:11)
[2022-02-22] MEDS: Nadolol 20 MG Tablet PO (05:11)
[2022-02-22] MEDS: Pantoprazole Sodium 20 MG Tablet PO (05:11)
[2022-02-22] MEDS: Loratadine 10 MG Tablet PO (05:11)
[2022-02-22] MEDS: Senna/Docusate Sodium 1 Tablet 2 TABLET PO ×2 (05:14→18:04)
[2022-02-22 05:45] LABS: Absolute Lymphocyte Count 0.32 X10^3/uL (0.83-4.51); Absolute Neutrophil Count 6.3 X10^3/uL (2.0-7.7); Basophil# 0.04 X10^3/uL; Basophil% 0.5 % (0-1); Eosinophil# 0.52 X10^3/uL; Eosinophils% 6.6 % (0-5); Hematocrit 28.6 % (40-54); Hemoglobin 9.1 g/dL (13.0-16.5); Lymphocyte # 0.32 X10^3/ul (0.83-4.51); Mean Corp Hgb Conc 31.8 g/dL (32-36); Mean Corpuscular Hgb 31.9 pg (27.0-32.0); Mean Corpuscular Volume 100.4 fL (80-94); Mean Platelet Vol. 10.1 fl (6.2-12.0); Monocyte# 0.56 X10^3/uL; Monocyte% 7.1 % (0-10); NRBC Flagged by Analyzer 0 % (0-5); Neutrophil # 6.31 X10^3/uL (2.7-7.7); Neutrophil % 79.5 % (47-70); POSITIVE DIFFERENTIAL YES; Platelet Count 312 K/mm3 (150-450); RBC Distribution Width CV 14.9 % (11.6-14.6); RBC Distribution Width SD 53.7 fl (35.1-43.9); Red Blood Count 2.85 M/mm3 (4.6-6.2); White Blood Count 7.9 K/mm3 (4.4-11.0)
[2022-02-22 05:56] LABS: Differential Indicated SCAN CRITERIA MET
[2022-02-22 06:14] LABS: Differential Comment SCANNED
[2022-02-22 06:31] LABS: Bedside Glucose 132 mg/dL (74-106)
[2022-02-22] MEDS: HYDROmorphone 2 MG TABLET 6 MG PO ×2 (08:50→22:44)
[2022-02-22] MEDS: Glucerna Shake 120 ML LIQUID PO ×3 (08:50→18:03)
[2022-02-22] MEDS: Multivitamins,Therapeutic Tablet 1 TABLET PO (08:50)
--- NOTE | 2022-02-22 09:17 | NURSING ---
THIS NURSE CALLED EUN/CRIBBER, ASKED ABOUT PT C PAP. EUN STATED SHE WAS BRINGING IT IN Tuesday02/24/22 AND THIS NURSE REMINDED HER THAT PAPERS NEEDED TO BE SIGNED ALSO. ASKED EUN ABOUT WHITE BOX IN PT ROOM. EUN STATED ITS A ICD COMMUTATION BOX FOR HIS PACE MAKER AND IS FROM DR. LAWRENCE OFFICE. EUN STATED SHE LIVES IN [place]. THIS NURSE THANKED HER FOR HER TIME. WILL CALL OFFICE FOR INSTRUCTIONS ON ICD BOX. RN AWARE.
[2022-02-22 10:40] LABS: Bedside Glucose 249 mg/dL (74-106)
--- NOTE | 2022-02-22 11:04 | PCM.PN.RX ---
Progress Note - Pharmacy Subjective: TCU Admission Objective: Allergies oxycodone Adverse Reaction (Verified 02/10/22 03:40) hallucinations Current Medications Generic Name Dose Route Start Last Admin Trade Name Kathy PRN Reason Stop Dose Admin Acetaminophen 1,000 mg 02/19/22 14:42 02/20/22 06:27 Acetaminophen 500 Mg Tablet PO 1,000 mg Q6H PRN PRN Administration Pain Score 1-3 Apixaban 5 mg 02/20/22 06:00 02/21/22 05:25 Apixaban 5 Mg Tablet PO 5 mg BID KATIE Administration Bicalutamide 50 mg 02/20/22 06:00 02/22/22 05:11 Bicalutamide 50 Mg Tablet PO 50 mg DAILY KATIE Administration Bisacodyl 10 mg 02/19/22 14:42 02/20/22 17:48 Bisacodyl 5 Mg Tablet PO 10 mg DAILY PRN PRN Administration Constipation Bumetanide 1 mg 02/20/22 06:00 02/22/22 05:11 Bumetanide 0.5 Mg Tablet PO 1 mg DAILY KATIE Administration Cyanocobalamin 250 mcg 02/20/22 06:00 02/22/22 05:11 Cyanocobalamin 500 Mcg Tablet PO 250 mcg DAILY KATIE Administration Hydromorphone HCl 6 mg 02/19/22 14:44 02/22/22 08:50 Hydromorphone 2 Mg Tablet PO 6 mg Q4H PRN PRN Administration Pain Score 6-10 Insulin Glargine 27 unit 02/19/22 22:00 02/21/22 21:23 Insulin Glargine-Yfgn 100 Unit/Ml Pen SC 27 unit QHS KATIE Administration Lisinopril 40 mg 02/20/22 06:00 02/22/22 05:11 Lisinopril 40 Mg Tablet PO 40 mg DAILY KATIE Administration Loratadine 10 mg 02/20/22 06:00 02/22/22 05:11 Loratadine 10 Mg Tablet PO 10 mg DAILY KATIE Administration Multivitamins 1 tablet 02/20/22 08:00 02/22/22 08:50 Multivitamins,Therapeutic Tablet PO 1 tablet DAILY@0800 KATIE Administration Nadolol 20 mg 02/20/22 06:00 02/22/22 05:11 Nadolol 20 Mg Tablet PO 20 mg DAILY KATIE Administration Nutritional Formula (Lactose Free) 120 ml 02/20/22 07:45 02/22/22 08:50 Glucerna Shake 120 Ml Liquid PO 120 ml TIDCM KATIE Administration Pantoprazole Sodium 20 mg 02/20/22 06:00 02/22/22 05:11 Pantoprazole Sodium 20 Mg Tablet PO 20 mg DAILY KATIE Administration Polyethylene Glycol 17 gm 02/19/22 18:00 02/22/22 05:12 Polyethylene Glycol 3350 17 Gm Packet PO Not Given BID KATIE Senna/Docusate Sodium 2 tablet 02/19/22 18:00 02/22/22 05:14 Senna/Docusate Sodium 1 Tablet PO 2 tablet BID KATIE Administration Spironolactone 25 mg 02/20/22 06:00 02/22/22 05:11 Spironolactone 25 Mg Tablet PO 25 mg DAILY KATIE Administration Tamsulosin HCl 0.4 mg 02/19/22 17:30 02/21/22 16:48 Tamsulosin Hcl 0.4 Mg Capsule PO 0.4 mg DAILY@1730 KATIE Administration Topiramate 25 mg 02/19/22 18:00 02/22/22 05:11 Topiramate 25 Mg Tablet PO 25 mg BID KATIE Administration Tramadol HCl 50 mg 02/19/22 19:43 02/20/22 06:28 Tramadol 50 Mg Tablet PO 50 mg Q6H PRN PRN Administration Pain Score 4-5 Tuberculin PPD 0.1 ml 02/27/22 10:00 Tuberculin,Purif.Prot.Deriv. 50 Tu/Ml Vial ID 02/27/22 10:01 X1 ONE Problem List (Last Reviewed 02/19/22 @ 13:[address] Kaden Johnson MD) Benign prostate hyperplasia (Acute) Seizure disorder (Acute) Gastroesophageal reflux disease (Acute) Diabetes mellitus (Acute) Asthma (Acute) Chronic systolic congestive heart failure (Chronic) FARIAS (nonalcoholic steatohepatitis) (Acute) Cirrhosis of liver (Acute) Chronic kidney disease, stage 3a (Chronic) Atrial fibrillation (Acute) Stroke (Acute) Prostate cancer (Acute) Closed right hip fracture (Acute) Debility (Acute) Vital Signs Temp Pulse Resp BP Pulse Ox 96.8 F L 70 18 110/67 94 02/22/22 05:00 02/22/22 05:00 02/22/22 05:00 02/22/22 05:00 02/22/22 05:00 Oxygen Delivery Method Room Air Weight: 83.631 kg Body Mass Index (BMI) 27.2 Sodium 140 mmol/L (136-145) 02/21/22 06:14 Potassium 4.0 mmol/L (3.5-5.1) 02/21/22 06:14 Chloride 111 mmol/L (98-107) H 02/21/22 06:14 Carbon Dioxide 25.0 mmol/L (21.0-32.0) 02/21/22 06:14 Anion Gap 4 (5-15) L 02/21/22 06:14 BUN 26 mg/dL (7-18) H 02/21/22 06:14 Creatinine 1.19 mg/dL (0.70-1.30) 02/21/22 06:14 Est GFR (MDRD) Af Amer 78 mL/min (>60) 02/21/22 06:14 Est GFR (MDRD) Non-Af 64 mL/min (>60) 02/21/22 06:14 BUN/Creatinine Ratio 21.8 RATIO (10-20) H 02/21/22 06:14 Glucose 135 mg/dL (74-106) H 02/21/22 06:14 Assessment/Plan: 1. Pain: acetaminophen 1000mg PO Q6H PRN pain (1-3), tramadol 50mg PO Q6H PRN pain (4-5) and hydromorphone 6mg PO Q4H PRN pain (6-10). Please continue to monitor for increased pain, PRN usage, constipation and respiratory depression. 2. Atrial fibrillation/CHF: nadolol 20mg PO daily, apixaban 5mg PO BID, lisinopril 40mg PO daily, spironolactone 25mg PO daily and bumetanide 1mg PO daily. Please continue to monitor BP (last 110/67), HR (last 70), potassium (last 4mmol/L), sodium (last 140mmol/L), S/S of bleeding/stroke and hemoglobin (last 9.1 g/dL). 3. Prostate cancer: bicalutamide 50mg PO daily. Please continue to monitor for chest pain, dizziness, pelvic/bone pain and infection. *4. Diabetes mellitus II: insulin glargine 27units SC QHS. Please consider ordering a hemoglobin A1c (last 04/2020) if clinically appropriate. Please continue to monitor glucose (last 249mg/dL) and S/S of hypo/hyperglycemia. 5. GERD: pantoprazole 20mg PO daily. Please continue to monitor for S/S of GERD and diarrhea. 6. BPH: tamsulosin 0,4mg PO daily@1730. Please continue to monitor for increased urine flow and BP. 7. Seizure disorder: topiramate 25mg PO BID. Please continue to monitor for S/S of seizure, dizziness and paresthesias. 8. Allergic rhinitis: loratadine 10mg PO daily. Please continue to monitor for S/S of allergies. *9. Nutrition/nutrition: cyanocobalamin 250mcg PO daily and multivitamin 1T PO DAILYCM. Please consider ordering a vitamin B12 level (resident does not have one in chart) if clinically appropriate. Thanks. Psychotropic Medications: None Unnecessary Medications: None Bowel Regimen: Miralax 17gm PO BID, senna/docusate 2T PO BID and bisacodyl 10mg PO daily PRN constipation. Please continue to monitor for S/S of constipation and PRN usage. Date of Note:: 02/22/22
[2022-02-22 13:59] VITALS: BP 98/56; PULSE 70; RESP 16; TEMP 36.7; O2SAT 98
[2022-02-22 16:35] LABS: Bedside Glucose 198 mg/dL (74-106)
[2022-02-22] MEDS: Tamsulosin HCl 0.4 MG Capsule PO (18:04)
[2022-02-22 21:36] LABS: Bedside Glucose 175 mg/dL (74-106)
[2022-02-22] MEDS: Insulin Glargine-YFGN 100 UNIT/ML Pen 27 UNIT SC (22:38)
[2022-02-23 05:00] VITALS: BP 103/60; PULSE 70; RESP 18; TEMP 36.6; O2SAT 96
[2022-02-23] MEDS: Spironolactone 25 MG Tablet PO (05:43)
[2022-02-23] MEDS: Topiramate 25 MG Tablet PO ×2 (05:43→17:56)
[2022-02-23] MEDS: Loratadine 10 MG Tablet PO (05:44)
[2022-02-23] MEDS: Lisinopril 40 MG Tablet PO (05:44)
[2022-02-23] MEDS: Bumetanide 0.5 MG Tablet 1 MG PO (05:44)
[2022-02-23] MEDS: BICALUTAMIDE 50 MG TABLET PO (05:44)
[2022-02-23] MEDS: Nadolol 20 MG Tablet PO (05:45)
[2022-02-23] MEDS: Pantoprazole Sodium 20 MG Tablet PO (05:45)
[2022-02-23] MEDS: Senna/Docusate Sodium 1 Tablet 2 TABLET PO ×2 (05:45→17:54)
[2022-02-23] MEDS: Cyanocobalamin 500 MCG Tablet 250 MCG PO (05:45)
[2022-02-23 06:26] LABS: Bedside Glucose 149 mg/dL (74-106)
--- NOTE | 2022-02-23 07:27 | NURSING ---
EUN CALLED THIS NURSE BACK AND STATED THAT PT GETS A HORMONE SHOT ONCE EVERY [address] REAL AND NEEDS IT ON 03/02/22. THIS NURSE NOTIFIED DAVIS CHAPARRO TO SEE IF PT CAN RECEIVE SHOT WHILE ON THIS FLOOR. RN AWARE
[2022-02-23] MEDS: Multivitamins,Therapeutic Tablet 1 TABLET PO (07:57)
[2022-02-23] MEDS: Glucerna Shake 120 ML LIQUID PO ×3 (08:01→17:53)
[2022-02-23] MEDS: HYDROmorphone 2 MG TABLET 6 MG PO ×3 (08:01→22:04)
--- NOTE | 2022-02-23 10:04 | NURSING ---
Spoke with Bridgette, nurse for Dr. Saravia regarding appointment 03/02/22. She spoke with Dr. Saravia and he stated to cancel the appt on 03/02/22. Appt to be rescheduled after d/c from [facility]. Left a message for Bob regarding the cancellation of this appt.
[2022-02-23 10:46] LABS: Bedside Glucose 169 mg/dL (74-106)
--- NOTE | 2022-02-23 10:53 | NURSING ---
PT PRADO CLAMPED OFF AND GAVE PT A PITCHER OF WATER TO DRINK PER RADIATION STAFF BEFORE PT GOES DOWN. STAFF STATED PT MUST DRINK PITCHER OF WATER AND PRADO CLAMPED BEFORE TREATMENT. RN AWARE
--- NOTE | 2022-02-23 11:23 | NURSING ---
PT TAKEN BY BED TO RADIATION AT THIS TIME.
--- NOTE | 2022-02-23 13:30 | NURSING ---
PT RETURNED TO FLOOR FROM RADIATION TREATMENT AT 1210.
[2022-02-23] MEDS: COVID-19 VACC, MRNA(PFIZER)/PF 30 MCG/0.3 ML SYRINGE IM (13:58)
--- NOTE | 2022-02-23 14:02 | NURSING ---
PFIZER BOOSTER GIVEN IN PT LEFT DELT. PT TOLERATED WELL.
--- NOTE | 2022-02-23 14:07 | NURSING ---
NEW LISSA CARD IN PT MEDBOX IN ROOM. PT STATED TO GIVE TO EUN ON TUESDAY WHEN SHE COMES IN.
[2022-02-23 14:20] VITALS: BP 99/56; PULSE 69; RESP 14; TEMP 36.4; O2SAT 94
[2022-02-23 16:15] LABS: Bedside Glucose 143 mg/dL (74-106)
--- NOTE | 2022-02-23 16:50 | NURSING ---
Addendum entered by Yamileth Pollock 02/24/22 16:45: Office called back and appointment cancelled, N.O. to remove bryanna 03/01 and obtain 2-3 view xray on 03/01. Original Note: CALLED [facility] IN [place] [CALL CENTER ANSWERED] TO SEE IF WANTS A FOLLOW UP WITH PT OR HAVE STAFF HERE TAKE PT BRYANNA OUT AND FOLLOW UP AFTER D/C. CALL CENTER STATED THEY WILL RELAY MESSAGE TO DR. WINSTON AWARE
[2022-02-23] MEDS: Polyethylene Glycol 3350 17 GM PACKET PO (17:54)
[2022-02-23] MEDS: Tamsulosin HCl 0.4 MG Capsule PO (17:56)
[2022-02-23 21:15] LABS: Bedside Glucose 176 mg/dL (74-106)
[2022-02-23] MEDS: Insulin Glargine-YFGN 100 UNIT/ML Pen 27 UNIT SC (22:03)
[2022-02-24] MEDS: HYDROmorphone 2 MG TABLET 6 MG PO ×2 (06:13→13:06)
[2022-02-24] MEDS: Bumetanide 0.5 MG Tablet 1 MG PO (06:13)
[2022-02-24] MEDS: Loratadine 10 MG Tablet PO (06:13)
[2022-02-24] MEDS: Lisinopril 40 MG Tablet PO (06:13)
[2022-02-24] MEDS: BICALUTAMIDE 50 MG TABLET PO (06:14)
[2022-02-24] MEDS: Polyethylene Glycol 3350 17 GM PACKET PO ×2 (06:14→17:21)
[2022-02-24] MEDS: Nadolol 20 MG Tablet PO (06:14)
[2022-02-24] MEDS: Spironolactone 25 MG Tablet PO (06:14)
[2022-02-24] MEDS: Senna/Docusate Sodium 1 Tablet 2 TABLET PO ×2 (06:14→17:22)
[2022-02-24] MEDS: Topiramate 25 MG Tablet PO ×2 (06:14→17:22)
[2022-02-24] MEDS: Pantoprazole Sodium 20 MG Tablet PO (06:14)
[2022-02-24] MEDS: Cyanocobalamin 500 MCG Tablet 250 MCG PO (06:14)
[2022-02-24 06:16] LABS: Bedside Glucose 147 mg/dL (74-106)
--- NOTE | 2022-02-24 07:33 | NS ---
Completed Dietary MDS assessment for KRISSY 02/26/22 today.
[2022-02-24] MEDS: Glucerna Shake 120 ML LIQUID PO ×3 (08:43→17:21)
[2022-02-24] MEDS: Multivitamins,Therapeutic Tablet 1 TABLET PO (08:43)
[2022-02-24] MEDS: traMADol 50 MG Tablet PO ×2 (09:29→16:05)
[2022-02-24 11:00] LABS: Bedside Glucose 198 mg/dL (74-106)
--- NOTE | 2022-02-24 13:30 | NURSING ---
Pt left floor for radiation at 1120 and came back to unit at 1210
[2022-02-24 13:33] VITALS: BP 105/58; PULSE 72; RESP 16; TEMP 36.9; O2SAT 98
[2022-02-24 17:21] LABS: Bedside Glucose 153 mg/dL (74-106)
[2022-02-24] MEDS: Tamsulosin HCl 0.4 MG Capsule PO (17:21)
[2022-02-24 21:16] LABS: Bedside Glucose 208 mg/dL (74-106)
[2022-02-24] MEDS: Acetaminophen 500 MG Tablet 1000 MG PO (21:47)
[2022-02-24] MEDS: Insulin Glargine-YFGN 100 UNIT/ML Pen 27 UNIT SC (21:48)
--- NOTE | 2022-02-24 21:59 | NURSING ---
Bob brought in cpap along with soclean machine to clean his mask when not in use. Cpap on pt at this time. pt resting well with call light in reach.
[2022-02-25 05:00] VITALS: BP 90/53; PULSE 69; RESP 18; TEMP 36.1
[2022-02-25] MEDS: Polyethylene Glycol 3350 17 GM PACKET PO (05:00)
[2022-02-25] MEDS: Pantoprazole Sodium 20 MG Tablet PO (05:01)
[2022-02-25] MEDS: Acetaminophen 500 MG Tablet 1000 MG PO (05:01)
[2022-02-25] MEDS: Nadolol 20 MG Tablet PO (05:01)
[2022-02-25] MEDS: Loratadine 10 MG Tablet PO (05:01)
[2022-02-25] MEDS: Cyanocobalamin 500 MCG Tablet 250 MCG PO (05:02)
[2022-02-25] MEDS: Senna/Docusate Sodium 1 Tablet 2 TABLET PO (05:02)
[2022-02-25] MEDS: BICALUTAMIDE 50 MG TABLET PO (05:03)
[2022-02-25] MEDS: Topiramate 25 MG Tablet PO ×2 (05:03→17:14)
[2022-02-25] MEDS: APIXABAN 5 MG TABLET PO ×2 (05:09→17:13)
[2022-02-25 06:21] LABS: Bedside Glucose 118 mg/dL (74-106)
[2022-02-25 06:39] VITALS: BP 93/57; PULSE 69
[2022-02-25] MEDS: Glucerna Shake 120 ML LIQUID PO ×3 (07:39→17:12)
[2022-02-25] MEDS: Bumetanide 0.5 MG Tablet 1 MG PO (07:42)
[2022-02-25] MEDS: Spironolactone 25 MG Tablet PO (07:42)
[2022-02-25] MEDS: Multivitamins,Therapeutic Tablet 1 TABLET PO (07:43)
[2022-02-25 07:44] VITALS: BP 98/62; PULSE 70
[2022-02-25] MEDS: HYDROmorphone 2 MG TABLET 6 MG PO ×3 (09:28→21:05)
--- NOTE | 2022-02-25 10:22 | CASEMGMT ---
Addendum entered by Janeen Kline 02/25/22 12:04: SO completed [facility] roel. Faxed to [facility]. Original Note: Social Work IDT met with patient and S.O. for care plan meeting. Discussed patient's progress in PT/OT/ST and nursing. Pt is maxx2-dependent x2 for all ADLs/mobility. Pt is on modified diet, decline in cognition, being impulsive and having poor safety awareness. Currently, IDT is recommending 24 care. Explained Medicare benefit. Encouraged to contact secondary insurance to ensure copay coverage. Explained pt can still be issued a DC date if he is has not made progress and still cannot return home. Pt and SO express understanding, but expressed goal is for pt to return home at OF. Validated goal and agreed will work toward home, but encouraged to have alternative DC plan prior to home. Explained and provided resources for nonskilled HHC, skilled HHC, SNF list and [facility] application. SO will assist in completing. SW offered ongoing assistance with DC planning. SO expressed appreciation for staff/. Janeen Kline, MONIQUE MCCLELLAND
[2022-02-25 11:20] LABS: Bedside Glucose 177 mg/dL (74-106)
[2022-02-25] MEDS: traMADol 50 MG Tablet PO (11:24)
--- NOTE | 2022-02-25 12:35 | NURSING ---
Pt on scheduled tylenol, this nurse was informed by significant other Bob that pt was not to be taking acetaminophen per instructions from his doctor d/t cirrhosis, that he takes ibuprofen at home. Bob updated that ibuprofen is contraindicated while taking a blood thinner, and he is currently taking Eliquis. Acetaminophen will be held this afternoon and a message was left for Dr. Johnson with request by pt and Bob to discontinue his tylenol. Acetaminophen was added to his adverse reaction list due to his cirrhosis per request.
--- NOTE | 2022-02-25 14:16 | NURSING ---
pt left floor for radiation at approx 1030 and returned approx 1130. Pain medications given prior and york catheter clamped per radiology instructions. [place] catheter was unclamped upon return to floor and is currently patent and draining freely.
[2022-02-25 14:39] VITALS: BP 92/56; PULSE 70; RESP 16; TEMP 36.5; O2SAT 97
[2022-02-25 16:01] LABS: Bedside Glucose 189 mg/dL (74-106)
[2022-02-25] MEDS: Tamsulosin HCl 0.4 MG Capsule PO (17:12)
--- NOTE | 2022-02-25 18:18 | NURSING ---
EDGAR Rojas feels pt has been more confused since taking the dilaudid states he is normally not this confused. Requesting that pt take ultram for pain and only given the dilaudid for severe pain, as pt seems to always have 9/10 pain irregardless of which pain medications he receives, and feels that it sometimes does more harm than good. Pt agreeable to try this. Pt has been getting up for dinner and eating in the dining room. Bob requests that pt be up in dining room for at least dinner daily to increase his activity level, and boost his mood.
[2022-02-25 21:31] LABS: Bedside Glucose 185 mg/dL (74-106)
[2022-02-25] MEDS: Insulin Glargine-YFGN 100 UNIT/ML Pen 27 UNIT SC (21:40)
[2022-02-26 05:00] VITALS: BP 92/48; PULSE 69; RESP 17; TEMP 36.1
[2022-02-26 06:26] LABS: Bedside Glucose 144 mg/dL (74-106)
[2022-02-26] MEDS: HYDROmorphone 2 MG TABLET 6 MG PO (06:40)
[2022-02-26] MEDS: Cyanocobalamin 500 MCG Tablet 250 MCG PO (06:40)
[2022-02-26] MEDS: APIXABAN 5 MG TABLET PO ×2 (06:42→18:11)
[2022-02-26] MEDS: Bumetanide 0.5 MG Tablet 1 MG PO (06:42)
[2022-02-26] MEDS: Senna/Docusate Sodium 1 Tablet 2 TABLET PO ×2 (06:42→18:13)
[2022-02-26] MEDS: Spironolactone 25 MG Tablet PO (06:42)
[2022-02-26] MEDS: BICALUTAMIDE 50 MG TABLET PO (06:42)
[2022-02-26] MEDS: Loratadine 10 MG Tablet PO (06:42)
[2022-02-26] MEDS: Pantoprazole Sodium 20 MG Tablet PO (06:42)
[2022-02-26] MEDS: Nadolol 20 MG Tablet PO (06:42)
[2022-02-26] MEDS: Topiramate 25 MG Tablet PO ×2 (06:43→18:14)
[2022-02-26] MEDS: Glucerna Shake 120 ML LIQUID PO ×3 (08:25→18:11)
[2022-02-26 08:53] VITALS: BP 84/67; PULSE 91
--- NOTE | 2022-02-26 08:54 | NURSING ---
PT BP LOW,HELD ZESTRIL. RN AWARE. WILL CONTINUE TO MONITOR.
[2022-02-26] MEDS: Multivitamins,Therapeutic Tablet 1 TABLET PO (09:07)
[2022-02-26 09:13] VITALS: BP 95/54; PULSE 89
--- NOTE | 2022-02-26 09:14 | NURSING ---
PT VITALS RECHECKED AND SUGAR CHECKED, PT NOELY. RN AWARE, WILL CONTINUE TO MONITOR.
[2022-02-26 09:16] LABS: Bedside Glucose 168 mg/dL (74-106)
--- NOTE | 2022-02-26 09:17 | CASEMGMT ---
Social Work Received Medicaid pending #[id number]. Jeremie Mckoy is CM. Janeen Kline MSW CRUISE GUIDE
--- NOTE | 2022-02-26 10:04 | NURSING ---
AT 9:45 THIS NURSE CLAMPED PT PRADO AND HAD PT DRINK PITCHER OF WATER BEFORE GOING TO RADIATION.
[2022-02-26 12:30] LABS: Bedside Glucose 194 mg/dL (74-106)
[2022-02-26] MEDS: traMADol 50 MG Tablet PO (12:40)
--- NOTE | 2022-02-26 14:23 | NURSING ---
PT LEFT FLOOR FOR RADIATION BY BED AT 10;40 AND RETURNED AT 12:30. UNCLAMPED PRADO AND DRAINING WELL.
--- NOTE | 2022-02-26 15:06 | CASEMGMT ---
Social Work BIMS and PHQ-9 completed for MDS assessment. Janeen Kline, RAILROAD SWITCHMAN REAL ESTATE TRANSACTION COORDINATOR
--- NOTE | 2022-02-26 15:08 | NURSING ---
PER DAVIS CHAPARRO WHO TALKED TO RADIATION, BEFORE PT GOS TO RADIATION AT 10:30AM HIS PRADO MUST BE CLAMPED AT 9AM AND THEN AT 9:30 DRINK 30-40 OZ OF WATER. RN AWARE
[2022-02-26 15:20] VITALS: PULSE 75; RESP 18; O2SAT 99
[2022-02-26 15:21] VITALS: BP 109/58; PULSE 75; RESP 16; TEMP 36.4; O2SAT 100
[2022-02-26 16:11] LABS: Bedside Glucose 142 mg/dL (74-106)
[2022-02-26] MEDS: Tamsulosin HCl 0.4 MG Capsule PO (18:14)
[2022-02-26] MEDS: Polyethylene Glycol 3350 17 GM PACKET PO (18:25)
[2022-02-26] MEDS: Insulin Glargine-YFGN 100 UNIT/ML Pen 27 UNIT SC (21:30)
[2022-02-26 21:36] LABS: Bedside Glucose 171 mg/dL (74-106)
[2022-02-27 05:00] VITALS: BP 108/65; PULSE 75; RESP 16; TEMP 36.2; O2SAT 94
[2022-02-27] MEDS: Pantoprazole Sodium 20 MG Tablet PO (05:41)
[2022-02-27] MEDS: APIXABAN 5 MG TABLET PO ×2 (05:41→17:04)
[2022-02-27] MEDS: Lisinopril 40 MG Tablet PO (05:42)
[2022-02-27] MEDS: Nadolol 20 MG Tablet PO (05:43)
[2022-02-27] MEDS: Senna/Docusate Sodium 1 Tablet 2 TABLET PO ×2 (05:43→17:04)
[2022-02-27] MEDS: BICALUTAMIDE 50 MG TABLET PO (05:44)
[2022-02-27] MEDS: Loratadine 10 MG Tablet PO (05:44)
[2022-02-27] MEDS: Bumetanide 0.5 MG Tablet 1 MG PO (05:44)
[2022-02-27] MEDS: Spironolactone 25 MG Tablet PO (05:44)
[2022-02-27] MEDS: Topiramate 25 MG Tablet PO ×2 (05:45→17:04)
[2022-02-27] MEDS: Polyethylene Glycol 3350 17 GM PACKET PO (05:45)
[2022-02-27] MEDS: Cyanocobalamin 500 MCG Tablet 250 MCG PO (05:49)
[2022-02-27 06:21] LABS: Bedside Glucose 137 mg/dL (74-106)
[2022-02-27] MEDS: Multivitamins,Therapeutic Tablet 1 TABLET PO (08:39)
[2022-02-27] MEDS: Glucerna Shake 120 ML LIQUID PO ×3 (08:41→16:17)
[2022-02-27] MEDS: traMADol 50 MG Tablet PO (08:45)
[2022-02-27] MEDS: HYDROmorphone 2 MG TABLET 6 MG PO (10:48)
[2022-02-27 14:36] VITALS: BP 126/49; PULSE 71; RESP 16; TEMP 36.6; O2SAT 96
[2022-02-27] MEDS: Tuberculin,Purif.prot.deriv. 50 TU/ML Vial 0.1 ML ID (15:06)
[2022-02-27] MEDS: Tamsulosin HCl 0.4 MG Capsule PO (16:17)
[2022-02-27 21:21] LABS: Bedside Glucose 192 mg/dL (74-106)
[2022-02-27] MEDS: Insulin Glargine-YFGN 100 UNIT/ML Pen 27 UNIT SC (21:31)
[2022-02-28 05:08] LABS: Absolute Lymphocyte Count 0.18 X10^3/uL (0.83-4.51); Absolute Neutrophil Count 8.1 X10^3/uL (2.0-7.7); Basophil# 0.02 X10^3/uL; Basophil% 0.2 % (0-1); Eosinophil# 0.02 X10^3/uL; Eosinophils% 0.2 % (0-5); Hematocrit 25.6 % (40-54); Hemoglobin 8.3 g/dL (13.0-16.5); Lymphocyte # 0.18 X10^3/ul (0.83-4.51); Mean Corp Hgb Conc 32.4 g/dL (32-36); Mean Corpuscular Hgb 31.4 pg (27.0-32.0); Monocyte# 0.73 X10^3/uL; NRBC Flagged by Analyzer 0 % (0-5); Neutrophil # 8.06 X10^3/uL (2.7-7.7); Neutrophil % 88.3 % (47-70); POSITIVE DIFFERENTIAL YES; POSITIVE MORPHOLOGY YES; Platelet Count 230 K/mm3 (150-450); RBC Distribution Width CV 14.7 % (11.6-14.6); RBC Distribution Width SD 52.3 fl (35.1-43.9); Red Blood Count 2.64 M/mm3 (4.6-6.2); White Blood Count 9.1 K/mm3 (4.4-11.0)
[2022-02-28 05:11] LABS: Differential Indicated SCAN CRITERIA MET
[2022-02-28] MEDS: HYDROmorphone 2 MG TABLET 6 MG PO (05:27)
[2022-02-28 05:28] LABS: Differential Comment SCANNED
[2022-02-28 05:29] LABS: Anion Gap 6 (5-15); BUN 44 mg/dL (7-18); BUN/Creat Ratio 26.5 RATIO (10-20); Calcium,Total 8.4 mg/dL (8.5-10.1); Chloride 105 mmol/L (98-107); Creatinine, Serum 1.66 mg/dL (0.70-1.30); EST Glomerular Filtration Rate 44 mL/min (>60); Est Glom Filt Rate - Afr Amer 53 mL/min (>60); Glucose 193 mg/dL (74-106); Potassium 3.9 mmol/L (3.5-5.1); Sodium Level 135 mmol/L (136-145)
[2022-02-28] MEDS: Lisinopril 40 MG Tablet PO (05:32)
[2022-02-28] MEDS: Bumetanide 0.5 MG Tablet 1 MG PO (05:32)
[2022-02-28] MEDS: Topiramate 25 MG Tablet PO ×2 (05:33→16:53)
[2022-02-28] MEDS: Loratadine 10 MG Tablet PO (05:33)
[2022-02-28] MEDS: Cyanocobalamin 500 MCG Tablet 250 MCG PO (05:33)
[2022-02-28] MEDS: Nadolol 20 MG Tablet PO (05:33)
[2022-02-28] MEDS: APIXABAN 5 MG TABLET PO ×2 (05:33→16:52)
[2022-02-28] MEDS: Pantoprazole Sodium 20 MG Tablet PO (05:33)
[2022-02-28] MEDS: BICALUTAMIDE 50 MG TABLET PO (05:33)
[2022-02-28] MEDS: Spironolactone 25 MG Tablet PO (05:33)
[2022-02-28 05:38] VITALS: BP 133/88; PULSE 89
[2022-02-28 06:25] LABS: Bedside Glucose 193 mg/dL (74-106)
[2022-02-28] MEDS: Glucerna Shake 120 ML LIQUID PO ×3 (08:17→16:51)
[2022-02-28] MEDS: Multivitamins,Therapeutic Tablet 1 TABLET PO (08:18)
[2022-02-28 10:00] VITALS: BP 104/53; PULSE 67; RESP 19; TEMP 36.7; O2SAT 97
--- NOTE | 2022-02-28 11:37 | PCA ---
Vlad was up for 4 hours on Tuesday, he was in his recliner. He did tell his POA that he never got out of bed yesterday. This morning he told his POA that he was not out of bed or did not have breakfast. When she called trays just came up. I told her that we were going to get him up today before lunch, but he did not want to get up for breakfast. We got him up this morning around 10:30a.m
--- NOTE | 2022-02-28 11:47 | NURSING ---
Patient up for lunch and out in dining room since 1029. Overheard conversation about patient telling daughter he's been in bed all day. Patient oriented to place and position. & patient acted surprised.
[2022-02-28] MEDS: Tamsulosin HCl 0.4 MG Capsule PO (16:52)
[2022-02-28 21:35] LABS: Bedside Glucose 267 mg/dL (74-106)
[2022-02-28] MEDS: Insulin Glargine-YFGN 100 UNIT/ML Pen 27 UNIT SC (21:35)
[2022-02-28] MEDS: traMADol 50 MG Tablet PO (21:38)
--- NOTE | 2022-02-28 23:35 | NURSING ---
in pt room to administer pain meds along with pm meds and adjust pt in bed for comfort. After pm care was completed his cpap was applied. He's resting at this time in bed with cpap on and call light in reach.
[2022-03-01] MEDS: HYDROmorphone 2 MG TABLET 6 MG PO (02:55)
[2022-03-01] MEDS: BICALUTAMIDE 50 MG TABLET PO (05:34)
[2022-03-01] MEDS: Loratadine 10 MG Tablet PO (05:35)
[2022-03-01] MEDS: Senna/Docusate Sodium 1 Tablet 2 TABLET PO ×2 (05:36→16:32)
[2022-03-01] MEDS: APIXABAN 5 MG TABLET PO ×2 (05:36→16:33)
[2022-03-01] MEDS: Pantoprazole Sodium 20 MG Tablet PO (05:36)
[2022-03-01] MEDS: Topiramate 25 MG Tablet PO ×2 (05:37→16:32)
[2022-03-01] MEDS: Cyanocobalamin 500 MCG Tablet 250 MCG PO (05:37)
[2022-03-01 06:21] LABS: Bedside Glucose 150 mg/dL (74-106)
[2022-03-01] MEDS: Polyethylene Glycol 3350 17 GM PACKET PO ×2 (06:32→16:33)
--- NOTE | 2022-03-01 06:55 | NURSING ---
[place] removed from right hip this morning per orders. 33 ashlie removed, incision intact; no redness, edema, bleeding, or drainage noted. Pt tolerated well.
[2022-03-01] MEDS: Multivitamins,Therapeutic Tablet 1 TABLET PO (07:40)
[2022-03-01] MEDS: Glucerna Shake 120 ML LIQUID PO ×3 (07:40→16:35)
[2022-03-01 07:41] VITALS: BP 84/53; PULSE 70
[2022-03-01] MEDS: traMADol 50 MG Tablet PO ×3 (09:51→22:56)
[2022-03-01 10:00] VITALS: BP 104/58; PULSE 72; RESP 18; TEMP 36.1; O2SAT 94
--- NOTE | 2022-03-01 10:15 | NURSING ---
This nurse spoke with Bob today about pt's progress and pain management. Significant other Bob expressed concern with pts pain medication regimen stating she feels the Dilaudid is too strong and is making the pt confused, which is halting his progress. Bob is requesting Dilaudid be discontinued at this time, message left for Dr. Johnson with update on request. Bob was also inquiring about the in-patient rehab unit for more intensive therapy, phone call was transferred to chest pain coordinator.
--- NOTE | 2022-03-01 10:20 | NURSING ---
Pt catheter clamped at approx 9am and 1200cc of fluids given to ensure full bladder for radiation.
--- NOTE | 2022-03-01 10:25 | RAD_ITS ---
INDICATION: Post Arthoplasty EXAMINATION/TECHNIQUE: X-RAY - RIGHT XR Hip Unilateral with Pelvis when performed; 2-3 Views 3 VIEWS COMPARISON: Radiograph from 02/10/2022 FINDINGS/ RAD/HIP, UNI W/ Pelvis 2-3 Views IMPRESSION: Interval right total hip arthroplasty with intact and appropriate positioning of the surgical hardware. Expected adjacent postoperative subcutaneous emphysema. No acute fracture or dislocation. Moderate left femoral acetabular joint osteoarthritis. Joint spaces are intact. Stable surgical clips projecting over the pelvis. Electronically Signed: Jose Pennington, at 11:37 EDT ,
--- NOTE | 2022-03-01 11:10 | NURSING ---
Pt left for xray at approx 1020 and went to radiation straight from xray. Pt returned to floor at this time, catheter unclamped and draining freely.
--- NOTE | 2022-03-01 11:39 | NURSING ---
Pt sitting up in recliner chair in dining room for lunch today.
--- NOTE | 2022-03-01 12:53 | MDS.RN ---
Information for the MDS was obtained from review of the clinical record, interview of resident, staff, and direct observation of resident's care.
--- NOTE | 2022-03-01 12:58 | NURSING ---
Progess note on staple removal and xray report from hip xray today sent to orthopedics office.
--- NOTE | 2022-03-01 13:24 | NURSING ---
[employer] Adf Developer Note: Interview and Section F of MDS completed for KRISSY of 02/26/22.
--- NOTE | 2022-03-01 14:05 | WOUNDNOTE ---
wound photo: right heel
[2022-03-01] MEDS: Tamsulosin HCl 0.4 MG Capsule PO (16:34)
--- NOTE | 2022-03-01 17:38 | NURSING ---
Urine dark yellow to katia, cloudy with sediment, family feels pt is more confused. BUN 44, creatinine 1.66, eliquis was resumed last week and hgb 8.3, intake has been hit or miss, Bp's been running on the low side, Message left for Dr. Johnson
[2022-03-01 18:54] LABS: Mucous, Urine 0 SEEN /hpf (<or=2+); Red Blood Cells-Urine 0 SEEN /hpf (0-5); Squamous Epithelial Cells - UA 0 SEEN /hpf (0-5)
[2022-03-01 19:23] LABS: Glucose, Dipstick Normal (Normal); Ketone-Dipstick 5 mg/dl (Negative); Leukocyte Esterase-Dipstick 500 /ul (Negative); Nitrite-Dipstick Negative (Negative); Occult Blood-Urine 150 /ul (Negative); Protein-Dipstick 100 mg/dl (Negative); Urine Urobilinogen 8 mg/dl (Normal)
[2022-03-01 19:39] LABS: Color, Urine Yellow (Yellow); Urine Bilirubin Dipstick 1 mg/dL (Negative); Urine Clarity Cloudy (Clear)
[2022-03-01 19:40] LABS: Bacteria 3+ /hpf (None Seen); White Blood Cells >100 SEEN /hpf (0-5)
[2022-03-01 19:42] LABS: Fine Granular Cast- Urine 0-5 SEEN /lpf (0-5)
[2022-03-01 21:21] LABS: Bedside Glucose 237 mg/dL (74-106)
[2022-03-01] MEDS: Insulin Glargine-YFGN 100 UNIT/ML Pen 27 UNIT SC (22:53)
--- NOTE | 2022-03-01 23:02 | NURSING ---
Administered HS medications. PRN tramadol given for hip pain rated at a 6/10. Applied CPAP at this time. Call light within reach.
[2022-03-01 23:46] VITALS: RESP 18
[2022-03-02] MEDS: traMADol 50 MG Tablet PO ×3 (05:59→20:21)
[2022-03-02] MEDS: Polyethylene Glycol 3350 17 GM PACKET PO ×2 (06:00→17:17)
[2022-03-02] MEDS: Topiramate 25 MG Tablet PO ×2 (06:01→17:16)
[2022-03-02] MEDS: Pantoprazole Sodium 20 MG Tablet PO (06:01)
[2022-03-02] MEDS: Senna/Docusate Sodium 1 Tablet 2 TABLET PO ×2 (06:01→17:17)
[2022-03-02] MEDS: Cyanocobalamin 500 MCG Tablet 250 MCG PO (06:02)
[2022-03-02] MEDS: Loratadine 10 MG Tablet PO (06:03)
[2022-03-02] MEDS: BICALUTAMIDE 50 MG TABLET PO (06:03)
[2022-03-02 06:20] LABS: Bedside Glucose 175 mg/dL (74-106)
[2022-03-02] MEDS: Glucerna Shake 120 ML LIQUID PO ×3 (07:56→17:21)
[2022-03-02] MEDS: Multivitamins,Therapeutic Tablet 1 TABLET PO (08:07)
[2022-03-02 08:09] VITALS: BP 102/59; PULSE 69
[2022-03-02] MEDS: 0.9% Normal Saline 1,000 ML 75 ML IV (08:39)
[2022-03-02] MEDS: CEFUROXIME AXETIL 250 MG TABLET 500 MG PO ×2 (08:54→17:16)
[2022-03-02] MEDS: 0.9% Saline Lock 10 ML Syringe IV (11:18)
[2022-03-02 15:42] VITALS: BP 97/56; PULSE 70; RESP 16; TEMP 35.9; O2SAT 99
[2022-03-02 16:36] LABS: Bedside Glucose 184 mg/dL (74-106)
[2022-03-02] MEDS: Tamsulosin HCl 0.4 MG Capsule PO (17:16)
[2022-03-02 20:15] VITALS: BP 96/53; PULSE 70
[2022-03-02] MEDS: Insulin Glargine-YFGN 100 UNIT/ML Pen 27 UNIT SC (20:30)
[2022-03-02 20:46] LABS: Bedside Glucose 174 mg/dL (74-106)
--- NOTE | 2022-03-03 00:10 | NURSING ---
2015 Rechecked BP 96/53 apical 70, pt medicated with Ultram as per order for pain 7/10 on pain scale. Calderon is draining, katia colored urine with sediment. IV in R hand patent and fusing with NS at 75cc/hr. Heel boots intact. RN made aware of BP d/t being low earlier. Pt reports this is normal for him. Pt without symptoms.
[2022-03-03] MEDS: traMADol 50 MG Tablet PO (06:07)
[2022-03-03] MEDS: Polyethylene Glycol 3350 17 GM PACKET PO (06:11)
[2022-03-03] MEDS: Cyanocobalamin 500 MCG Tablet 250 MCG PO (06:12)
[2022-03-03] MEDS: Pantoprazole Sodium 20 MG Tablet PO (06:12)
[2022-03-03] MEDS: BICALUTAMIDE 50 MG TABLET PO (06:19)
[2022-03-03] MEDS: Spironolactone 25 MG Tablet PO (06:19)
[2022-03-03] MEDS: Bumetanide 0.5 MG Tablet 1 MG PO (06:19)
[2022-03-03 06:20] LABS: Bedside Glucose 151 mg/dL (74-106)
[2022-03-03] MEDS: Loratadine 10 MG Tablet PO (06:20)
[2022-03-03 07:00] VITALS: BP 98/56; PULSE 70; RESP 18; TEMP 36.4; O2SAT 98
[2022-03-03] MEDS: Topiramate 25 MG Tablet PO ×2 (07:43→17:19)
--- NOTE | 2022-03-03 08:35 | NURSING ---
Patient offered to get up into recliner, refused to get up for breakfast.
[2022-03-03] MEDS: Glucerna Shake 120 ML LIQUID PO ×3 (08:57→17:24)
[2022-03-03] MEDS: CEFUROXIME AXETIL 250 MG TABLET 500 MG PO ×2 (08:59→17:18)
[2022-03-03] MEDS: Multivitamins,Therapeutic Tablet 1 TABLET PO (08:59)
[2022-03-03 09:00] VITALS: BP 102/65; PULSE 73
--- NOTE | 2022-03-03 09:12 | NURSING ---
PT PRDAO CLAMPED OFF AT 9AM,50 OZ OF WATER GIVEN TO PT AND EXPLAINED TO PT TO DRINK BEFORE 10:30. PRADO EMPTED.
--- NOTE | 2022-03-03 09:20 | ST ---
ST to see [id number] 8:30-9:00 daily
[2022-03-03 10:56] LABS: Bedside Glucose 202 mg/dL (74-106)
--- NOTE | 2022-03-03 11:04 | NURSING ---
PT LEFT FLOOR AT 10:35 BY WHEELCHAIR TO RADIATION.
--- NOTE | 2022-03-03 11:38 | NURSING ---
PT RETURNED TO FLOOR BY WHEELCHAIR WITH EUN AT 11:45 FROM RADIATION. RADIATION CALLED AND STATED PT HAD ACCIDENT WITH DIARRHEA WHILE RECEIVING RADIATION AND ASKED THAT PT NOT BE GIVEN STOOL SOFTENERS BEFORE TREATMENT. RN AWARE
[2022-03-03 14:31] VITALS: BP 110/63; PULSE 70; RESP 16; TEMP 36.7; O2SAT 97
[2022-03-03] MEDS: Tamsulosin HCl 0.4 MG Capsule PO (17:18)
[2022-03-03 21:31] LABS: Bedside Glucose 235 mg/dL (74-106)
[2022-03-03] MEDS: Insulin Glargine-YFGN 100 UNIT/ML Pen 27 UNIT SC (21:52)
--- NOTE | 2022-03-03 22:00 | NURSING ---
CPAP applied by this nurse at this time.
[2022-03-04] MEDS: Pantoprazole Sodium 20 MG Tablet PO (05:41)
[2022-03-04] MEDS: Topiramate 25 MG Tablet PO ×2 (05:41→17:43)
[2022-03-04] MEDS: Cyanocobalamin 500 MCG Tablet 250 MCG PO (05:41)
[2022-03-04] MEDS: Bumetanide 0.5 MG Tablet 1 MG PO (05:42)
[2022-03-04] MEDS: Spironolactone 25 MG Tablet PO (05:42)
[2022-03-04] MEDS: Nadolol 20 MG Tablet 10 MG PO (05:42)
[2022-03-04] MEDS: Lisinopril 10 MG Tablet PO (05:43)
[2022-03-04] MEDS: Loratadine 10 MG Tablet PO (05:44)
[2022-03-04] MEDS: BICALUTAMIDE 50 MG TABLET PO (05:44)
[2022-03-04 05:55] VITALS: BP 116/82
[2022-03-04] MEDS: 0.9% Saline Lock 10 ML Syringe IV ×2 (06:18→21:06)
[2022-03-04 06:21] LABS: Bedside Glucose 176 mg/dL (74-106)
[2022-03-04] MEDS: Glucerna Shake 120 ML LIQUID PO ×3 (07:36→17:43)
[2022-03-04] MEDS: Multivitamins,Therapeutic Tablet 1 TABLET PO (07:37)
[2022-03-04] MEDS: CEFUROXIME AXETIL 250 MG TABLET 500 MG PO (08:34)
--- NOTE | 2022-03-04 09:42 | NURSING ---
Dr. Johnson updated on Urine Micro results. N.O. to discontinue Ceftin and start on Macrobid [id number] for 10 days.
[2022-03-04] MEDS: Nitrofurantoin Macrocrystals 100 MG Capsule PO ×2 (10:06→17:43)
[2022-03-04 13:43] VITALS: BP 121/69; PULSE 75; RESP 16; TEMP 36.4; O2SAT 97
[2022-03-04] MEDS: Tamsulosin HCl 0.4 MG Capsule PO (17:43)
[2022-03-04] MEDS: Menthol/Lanolin/Calamine/Znox 113 GM Tube 1 APPLIC TOPICAL (17:43)
[2022-03-04] MEDS: Insulin Glargine-YFGN 100 UNIT/ML Pen 27 UNIT SC (21:05)
[2022-03-04 21:15] LABS: Bedside Glucose 243 mg/dL (74-106)
[2022-03-05] MEDS: Nadolol 20 MG Tablet 10 MG PO (05:16)
[2022-03-05] MEDS: Lisinopril 10 MG Tablet PO (05:20)
[2022-03-05] MEDS: Loratadine 10 MG Tablet PO (05:20)
[2022-03-05] MEDS: Nitrofurantoin Macrocrystals 100 MG Capsule PO ×2 (05:21→17:36)
[2022-03-05] MEDS: Spironolactone 25 MG Tablet PO (05:21)
[2022-03-05] MEDS: Bumetanide 0.5 MG Tablet 1 MG PO (05:21)
[2022-03-05] MEDS: Pantoprazole Sodium 20 MG Tablet PO (05:21)
[2022-03-05] MEDS: Cyanocobalamin 500 MCG Tablet 250 MCG PO (05:21)
[2022-03-05] MEDS: Topiramate 25 MG Tablet PO ×2 (05:21→17:36)
[2022-03-05] MEDS: BICALUTAMIDE 50 MG TABLET PO (05:21)
[2022-03-05] MEDS: traMADol 50 MG Tablet PO ×2 (05:22→11:34)
--- NOTE | 2022-03-05 05:41 | NURSING ---
Patient c/o pain in right hip. Repositioned, PRN Ultram administered as directed. Will continue to monitor.
[2022-03-05 05:45] VITALS: BP 105/54; PULSE 68
[2022-03-05 06:15] LABS: Bedside Glucose 187 mg/dL (74-106)
[2022-03-05] MEDS: Multivitamins,Therapeutic Tablet 1 TABLET PO (07:53)
[2022-03-05] MEDS: Glucerna Shake 120 ML LIQUID PO ×3 (07:53→17:37)
--- NOTE | 2022-03-05 09:13 | NURSING ---
PRADO CLAMPED AND PITCH OF WATER GIVEN TO PT AT 8AM. DUE TO PT GOING TO RADIATION AT 9:30.
--- NOTE | 2022-03-05 09:38 | NURSING ---
PT LEFT BY WHEEL CHAIR TO RADIATION AT 9:25AM.
--- NOTE | 2022-03-05 09:55 | NURSING ---
PT RETURNED FROM RADIATION AT 9:55 BY WHEEL CHAIR. PRADO UNCLAMPED.
[2022-03-05] MEDS: 0.9% Saline Lock 10 ML Syringe IV (11:36)
[2022-03-05 14:05] VITALS: BP 110/56; PULSE 70; RESP 16; TEMP 36.4; O2SAT 98
[2022-03-05] MEDS: Menthol/Lanolin/Calamine/Znox 113 GM Tube 1 APPLIC TOPICAL (17:34)
[2022-03-05] MEDS: Tamsulosin HCl 0.4 MG Capsule PO (17:35)
[2022-03-05] MEDS: Insulin Glargine-YFGN 100 UNIT/ML Pen 27 UNIT SC (21:07)
[2022-03-05 21:11] LABS: Bedside Glucose 224 mg/dL (74-106)
[2022-03-05 23:19] VITALS: PULSE 74; O2SAT 98
[2022-03-06] MEDS: Bumetanide 0.5 MG Tablet 1 MG PO (05:38)
[2022-03-06] MEDS: Pantoprazole Sodium 20 MG Tablet PO (05:38)
[2022-03-06] MEDS: Nitrofurantoin Macrocrystals 100 MG Capsule PO ×2 (05:38→17:41)
[2022-03-06] MEDS: Cyanocobalamin 500 MCG Tablet 250 MCG PO (05:40)
[2022-03-06] MEDS: Lisinopril 10 MG Tablet PO (05:40)
[2022-03-06] MEDS: Nadolol 20 MG Tablet 10 MG PO (05:40)
[2022-03-06] MEDS: Topiramate 25 MG Tablet PO ×2 (05:40→17:42)
[2022-03-06] MEDS: Loratadine 10 MG Tablet PO (05:40)
[2022-03-06] MEDS: Spironolactone 25 MG Tablet PO (05:41)
[2022-03-06] MEDS: Menthol/Lanolin/Calamine/Znox 113 GM Tube 1 APPLIC TOPICAL ×2 (05:44→17:40)
[2022-03-06] MEDS: BICALUTAMIDE 50 MG TABLET PO (05:45)
[2022-03-06 06:21] LABS: Bedside Glucose 179 mg/dL (74-106)
[2022-03-06] MEDS: Glucerna Shake 120 ML LIQUID PO ×3 (08:20→17:44)
[2022-03-06] MEDS: Multivitamins,Therapeutic Tablet 1 TABLET PO (08:20)
[2022-03-06] MEDS: traMADol 50 MG Tablet PO ×2 (09:09→17:46)
[2022-03-06 10:45] VITALS: PULSE 70; RESP 18; O2SAT 97
[2022-03-06] MEDS: 0.9% Saline Lock 10 ML Syringe IV (10:54)
--- NOTE | 2022-03-06 11:04 | NURSING ---
IV INFILTRATED, D/C SALINE LOCK.RN AWARE.PT TOLERATED WELL.
[2022-03-06 16:00] VITALS: BP 106/63; PULSE 70; RESP 16; TEMP 36.7; O2SAT 95
[2022-03-06] MEDS: Tamsulosin HCl 0.4 MG Capsule PO (17:41)
[2022-03-06 21:21] LABS: Bedside Glucose 180 mg/dL (74-106)
[2022-03-06] MEDS: Polyethylene Glycol 3350 17 GM PACKET PO (22:01)
[2022-03-06] MEDS: Senna/Docusate Sodium 1 Tablet 2 TABLET PO (22:02)
[2022-03-06] MEDS: Insulin Glargine-YFGN 100 UNIT/ML Pen 27 UNIT SC (22:11)
--- NOTE | 2022-03-06 23:58 | NURSING ---
CPAP placed at this time. Pt is resting in bed with call light within reach.
[2022-03-07] MEDS: Nadolol 20 MG Tablet 10 MG PO (06:05)
[2022-03-07] MEDS: Topiramate 25 MG Tablet PO ×2 (06:05→17:42)
[2022-03-07] MEDS: Nitrofurantoin Macrocrystals 100 MG Capsule PO ×2 (06:06→17:42)
[2022-03-07] MEDS: Pantoprazole Sodium 20 MG Tablet PO (06:07)
[2022-03-07] MEDS: Bumetanide 0.5 MG Tablet 1 MG PO (06:07)
[2022-03-07] MEDS: Loratadine 10 MG Tablet PO (06:08)
[2022-03-07] MEDS: BICALUTAMIDE 50 MG TABLET PO (06:08)
[2022-03-07] MEDS: Cyanocobalamin 500 MCG Tablet 250 MCG PO (06:09)
[2022-03-07] MEDS: Menthol/Lanolin/Calamine/Znox 113 GM Tube 1 APPLIC TOPICAL ×2 (06:11→17:44)
[2022-03-07] MEDS: Lisinopril 10 MG Tablet PO (06:11)
[2022-03-07] MEDS: Spironolactone 25 MG Tablet PO (06:11)
[2022-03-07 06:25] LABS: Bedside Glucose 164 mg/dL (74-106)
--- NOTE | 2022-03-07 06:46 | NURSING ---
Bob called during the eugenia asking for updates on how well physical therapy went and mentioned some concerns. Bob updated and thankful, mentioned she will be in sometime today.
[2022-03-07] MEDS: traMADol 50 MG Tablet PO ×2 (07:44→21:58)
[2022-03-07] MEDS: Multivitamins,Therapeutic Tablet 1 TABLET PO (07:44)
[2022-03-07] MEDS: Glucerna Shake 120 ML LIQUID PO ×3 (07:44→17:42)
[2022-03-07 08:03] LABS: Hematocrit 27.9 % (40-54); Hemoglobin 9.1 g/dL (13.0-16.5); Mean Corp Hgb Conc 32.6 g/dL (32-36); Mean Corpuscular Hgb 31.6 pg (27.0-32.0); Mean Corpuscular Volume 96.9 fL (80-94); Mean Platelet Vol. 10.4 fl (6.2-12.0); POSITIVE COUNT YES; POSITIVE DIFFERENTIAL YES; POSITIVE MORPHOLOGY YES; Platelet Count 212 K/mm3 (150-450); RBC Distribution Width CV 14.7 % (11.6-14.6); RBC Distribution Width SD 51.5 fl (35.1-43.9); Red Blood Count 2.88 M/mm3 (4.6-6.2); White Blood Count 6.4 K/mm3 (4.4-11.0)
[2022-03-07 08:06] LABS: Differential Indicated MANUAL DIFF
[2022-03-07 08:17] LABS: Anion Gap 5 (5-15); BUN 26 mg/dL (7-18); BUN/Creat Ratio 22.6 RATIO (10-20); Calcium,Total 8.8 mg/dL (8.5-10.1); Chloride 104 mmol/L (98-107); Creatinine, Serum 1.15 mg/dL (0.70-1.30); EST Glomerular Filtration Rate 67 mL/min (>60); Est Glom Filt Rate - Afr Amer 81 mL/min (>60); Estimated Creatinine Clearance 60.62 ml/min; Glucose 192 mg/dL (74-106); Potassium 4.2 mmol/L (3.5-5.1); Sodium Level 135 mmol/L (136-145)
[2022-03-07 09:11] LABS: Eosinophil 12 % (0-5); Lymphocyte 5 % (19-41); Metamyelocyte 1 % (0-1); Monocyte 6 % (0-10); Myelocyte 1 % (0-0); Neutrophil-Band 1 % (0-5); Neutrophil-Segmented 74 % (47-70); Total Cells Counted 100 (MANUAL DIFF)
[2022-03-07 09:14] LABS: Polychromasia RARE
[2022-03-07 09:15] LABS: Red Cell Morphology NORM C+C NORMAL (NORM C&C)
[2022-03-07 09:16] LABS: Platelet Estimate ADEQUATE (ADEQ)
[2022-03-07 09:17] LABS: Absolute Lymphocyte Count 0.32 X10^3/uL (0.83-4.51); Absolute Neutrophil Count 4.8 X10^3/uL (2.0-7.7)
[2022-03-07 10:00] VITALS: RESP 18
[2022-03-07 16:00] VITALS: BP 99/61; PULSE 70; RESP 15; TEMP 36.6; O2SAT 98
[2022-03-07] MEDS: Tamsulosin HCl 0.4 MG Capsule PO (17:42)
[2022-03-07 21:26] LABS: Bedside Glucose 233 mg/dL (74-106)
[2022-03-07] MEDS: Insulin Glargine-YFGN 100 UNIT/ML Pen 27 UNIT SC (21:58)
[2022-03-07] MEDS: Polyethylene Glycol 3350 17 GM PACKET PO (22:00)
[2022-03-07] MEDS: Senna/Docusate Sodium 1 Tablet 2 TABLET PO (22:01)
--- NOTE | 2022-03-07 22:10 | NURSING ---
CPAP applied at this time
[2022-03-08] MEDS: Nadolol 20 MG Tablet 10 MG PO (05:51)
[2022-03-08] MEDS: Lisinopril 10 MG Tablet PO (05:52)
[2022-03-08] MEDS: Spironolactone 25 MG Tablet PO (05:52)
[2022-03-08] MEDS: Bumetanide 0.5 MG Tablet 1 MG PO (05:52)
[2022-03-08] MEDS: BICALUTAMIDE 50 MG TABLET PO (05:53)
[2022-03-08] MEDS: Loratadine 10 MG Tablet PO (05:53)
[2022-03-08] MEDS: Nitrofurantoin Macrocrystals 100 MG Capsule PO ×2 (05:53→18:09)
[2022-03-08] MEDS: Cyanocobalamin 500 MCG Tablet 250 MCG PO (05:53)
[2022-03-08] MEDS: Pantoprazole Sodium 20 MG Tablet PO (05:53)
[2022-03-08] MEDS: Topiramate 25 MG Tablet PO ×2 (05:53→18:09)
[2022-03-08] MEDS: Menthol/Lanolin/Calamine/Znox 113 GM Tube 1 APPLIC TOPICAL ×2 (05:54→18:08)
[2022-03-08 06:20] LABS: Bedside Glucose 154 mg/dL (74-106)
[2022-03-08] MEDS: Glucerna Shake 120 ML LIQUID PO ×3 (08:41→18:08)
[2022-03-08] MEDS: traMADol 50 MG Tablet PO (08:54)
[2022-03-08] MEDS: Multivitamins,Therapeutic Tablet 1 TABLET PO (11:27)
[2022-03-08 15:50] VITALS: BP 90/55; PULSE 70; RESP 14; TEMP 37.3; O2SAT 100
[2022-03-08] MEDS: Tamsulosin HCl 0.4 MG Capsule PO (18:09)
[2022-03-08 21:15] LABS: Bedside Glucose 234 mg/dL (74-106)
[2022-03-08] MEDS: Senna/Docusate Sodium 1 Tablet 2 TABLET PO (21:32)
[2022-03-08] MEDS: Polyethylene Glycol 3350 17 GM PACKET PO (21:32)
[2022-03-08] MEDS: Insulin Glargine-YFGN 100 UNIT/ML Pen 27 UNIT SC (21:42)
[2022-03-09] MEDS: Cyanocobalamin 500 MCG Tablet 250 MCG PO (05:56)
[2022-03-09] MEDS: Menthol/Lanolin/Calamine/Znox 113 GM Tube 1 APPLIC TOPICAL ×2 (05:56→20:30)
[2022-03-09] MEDS: Spironolactone 25 MG Tablet PO (05:57)
[2022-03-09] MEDS: Bumetanide 0.5 MG Tablet 1 MG PO (05:57)
[2022-03-09] MEDS: BICALUTAMIDE 50 MG TABLET PO (05:58)
[2022-03-09] MEDS: Pantoprazole Sodium 20 MG Tablet PO (05:58)
[2022-03-09] MEDS: Topiramate 25 MG Tablet PO ×2 (05:58→17:36)
[2022-03-09] MEDS: Nadolol 20 MG Tablet 10 MG PO (05:58)
[2022-03-09] MEDS: Nitrofurantoin Macrocrystals 100 MG Capsule PO ×2 (05:58→17:36)
[2022-03-09] MEDS: Lisinopril 10 MG Tablet PO (05:58)
[2022-03-09] MEDS: Loratadine 10 MG Tablet PO (05:58)
[2022-03-09 06:25] LABS: Bedside Glucose 159 mg/dL (74-106)
[2022-03-09] MEDS: Glucerna Shake 120 ML LIQUID PO ×3 (08:11→17:36)
[2022-03-09] MEDS: Multivitamins,Therapeutic Tablet 1 TABLET PO (08:11)
[2022-03-09] MEDS: traMADol 50 MG Tablet PO ×3 (08:13→20:52)
--- NOTE | 2022-03-09 09:09 | NURSING ---
PRADO CLAMPED AT 9AM AND PITCHER OF WATER GIVEN TO PT BEFORE RADIATION AT 10:40.
[2022-03-09 10:00] VITALS: RESP 18
--- NOTE | 2022-03-09 10:49 | NURSING ---
PT LEFT FLOOR BY WHEEL CHAIR TO RADIATION AT 10;35AM.
--- NOTE | 2022-03-09 11:49 | NURSING ---
PT RETURNED TO FLOOR BY WHEEL CHAIR FROM RADIATION AT 11:20. PT PUT IN RECLINER,LOCKED CHAIR AND CALL LIGHT,BEDS SIDE TABLE IN REACH.
--- NOTE | 2022-03-09 12:07 | CASEMGMT ---
Social Work Received call from requesting referral to a rehab/SNF facility in [place]. Referral made to [facility]. MONIQUE WardW
[2022-03-09 13:59] VITALS: BP 93/53; PULSE 70; RESP 16; TEMP 36.2; O2SAT 97
[2022-03-09] MEDS: APIXABAN 5 MG TABLET PO (17:36)
[2022-03-09] MEDS: Tamsulosin HCl 0.4 MG Capsule PO (17:36)
--- NOTE | 2022-03-09 20:26 | NURSING ---
POElizabeth called requesting an update on pt. This nurse updated POA about pt's PT and OT therapy sessions today. POA satisfied with update and requested pt phone be plugged in to charge so she can call him. Pt's phone is charging and he is resting in bed with call light within reach at this time.
[2022-03-09] MEDS: Insulin Glargine-YFGN 100 UNIT/ML Pen 27 UNIT SC (20:53)
[2022-03-09] MEDS: Senna/Docusate Sodium 1 Tablet 2 TABLET PO (20:54)
[2022-03-09] MEDS: Polyethylene Glycol 3350 17 GM PACKET PO (20:54)
[2022-03-09 21:16] LABS: Bedside Glucose 230 mg/dL (74-106)
[2022-03-10] MEDS: Nadolol 20 MG Tablet 10 MG PO (05:41)
[2022-03-10] MEDS: Bumetanide 0.5 MG Tablet 1 MG PO (05:41)
[2022-03-10] MEDS: Lisinopril 10 MG Tablet PO (05:41)
[2022-03-10] MEDS: Spironolactone 25 MG Tablet PO (05:41)
[2022-03-10] MEDS: Cyanocobalamin 500 MCG Tablet 250 MCG PO (05:42)
[2022-03-10] MEDS: Topiramate 25 MG Tablet PO ×2 (05:42→17:14)
[2022-03-10] MEDS: Pantoprazole Sodium 20 MG Tablet PO (05:43)
[2022-03-10] MEDS: BICALUTAMIDE 50 MG TABLET PO (05:43)
[2022-03-10] MEDS: Nitrofurantoin Macrocrystals 100 MG Capsule PO ×2 (05:44→17:13)
[2022-03-10] MEDS: Loratadine 10 MG Tablet PO (05:44)
[2022-03-10] MEDS: APIXABAN 5 MG TABLET PO ×2 (05:45→17:13)
[2022-03-10 06:20] LABS: Bedside Glucose 179 mg/dL (74-106)
[2022-03-10] MEDS: Glucerna Shake 120 ML LIQUID PO ×3 (08:28→17:15)
[2022-03-10] MEDS: Multivitamins,Therapeutic Tablet 1 TABLET PO (08:28)
[2022-03-10] MEDS: traMADol 50 MG Tablet PO ×2 (08:31→17:21)
[2022-03-10] MEDS: Menthol/Lanolin/Calamine/Znox 113 GM Tube 1 APPLIC TOPICAL ×2 (09:47→17:15)
--- NOTE | 2022-03-10 12:05 | NURSING ---
Addendum entered by Yamileth Pollock 03/10/22 18:14: Corgard decreased from 10mg to 5mg Addendum entered by Yamileth Pollock 03/10/22 18:11: N.O. d/c aldactone, bumex, corgard, and lisinopril for low BP's Addendum entered by Yamileth Pollock 03/10/22 14:30: Pt's radiation got extended an extra day and last day of radiation will be on 03/17/22 Original Note: Radiation called and reported to this nurse that pt BP was low 70's/50's. Pt did receive diuretics and BP medications this morning around. Pt came back to floor and blood pressure, 88/50 with a HR 62, pt has low trending Bps and is asymptomatic, fluids encouraged at this time and conveyor line battery charger aware, message left for Dr. Johnson
[2022-03-10 12:12] VITALS: BP 88/50; PULSE 62
[2022-03-10 12:48] LABS: Pathologist Review Reviewed
[2022-03-10 14:38] VITALS: BP 94/50; PULSE 70; RESP 14; TEMP 36.4; O2SAT 98
[2022-03-10] MEDS: Tamsulosin HCl 0.4 MG Capsule PO (17:14)
--- NOTE | 2022-03-10 17:35 | RAD_ITS ---
STUDY: X-RAY - PELVIS AND RIGHT HIP REASON FOR EXAM: Male, 71 years old. Pain TECHNIQUE: views of the pelvis and hip. COMPARISON: None. FINDINGS: There is a non-specific bowel gas pattern. Normal visualized soft tissue structures. Normal bilateral iliac wings, sacroiliac joints and visualized sacrum. Normal bilateral superior and inferior pubic rami. Normal pubic symphysis. Normal bilateral ischial tuberosities. Normal visualized femoral head. Normal acetabulum. Normal hip joint. There is a right hip prosthesis. RAD/HIP, UNI W/ Pelvis 2-3 Views IMPRESSION: Normal x-ray examination of the pelvis and hip. Electronically Signed: Lonnie Bridges MD at 0:59 EDT ,
--- NOTE | 2022-03-10 18:05 | NURSING ---
Addendum entered by Yamileth Pollock 03/10/22 18:12: Family is requesting pain management consult if hip xray is normal. Original Note: Therapy noted pt still complaining of a lot of pain to right hip, Dr. Johnson updated, N.O. xray to right hip
[2022-03-10 20:51] LABS: Bedside Glucose 208 mg/dL (74-106)
[2022-03-10] MEDS: Insulin Glargine-YFGN 100 UNIT/ML Pen 27 UNIT SC (20:54)
[2022-03-10] MEDS: Polyethylene Glycol 3350 17 GM PACKET PO (20:54)
[2022-03-10] MEDS: Senna/Docusate Sodium 1 Tablet 2 TABLET PO (20:54)
[2022-03-11] MEDS: Nitrofurantoin Macrocrystals 100 MG Capsule PO ×2 (05:36→17:54)
[2022-03-11] MEDS: Pantoprazole Sodium 20 MG Tablet PO (05:36)
[2022-03-11] MEDS: APIXABAN 5 MG TABLET PO ×2 (05:36→17:54)
[2022-03-11] MEDS: Cyanocobalamin 500 MCG Tablet 250 MCG PO (05:36)
[2022-03-11] MEDS: Topiramate 25 MG Tablet PO ×2 (05:36→17:55)
[2022-03-11] MEDS: Nadolol 20 MG Tablet 5 MG PO (05:36)
[2022-03-11] MEDS: Loratadine 10 MG Tablet PO (05:38)
[2022-03-11] MEDS: Menthol/Lanolin/Calamine/Znox 113 GM Tube 1 APPLIC TOPICAL ×2 (05:38→17:57)
[2022-03-11] MEDS: BICALUTAMIDE 50 MG TABLET PO (05:39)
[2022-03-11 06:30] LABS: Bedside Glucose 148 mg/dL (74-106)
[2022-03-11] MEDS: Multivitamins,Therapeutic Tablet 1 TABLET PO (08:02)
[2022-03-11] MEDS: Glucerna Shake 120 ML LIQUID PO ×3 (08:03→17:50)
[2022-03-11] MEDS: traMADol 50 MG Tablet PO ×2 (08:05→14:38)
--- NOTE | 2022-03-11 09:06 | NURSING ---
EVE CLAMPED AT 9AM,PITCHER OF WATER GIVEN TO DRINK BEFORE RADIATION.
--- NOTE | 2022-03-11 09:55 | NURSING ---
CALLED OFFICE FOR CONSULT FOR PT DUE TO PAIN IN RT HIP. OFFICE STATED THEY WOULD CALL BACK TO LET US KNOW.
--- NOTE | 2022-03-11 10:39 | NURSING ---
PT LEFT FLOOR AT 10:40 BY WHEEL CHAIR TO RADIATION.
--- NOTE | 2022-03-11 11:08 | NURSING ---
PT RETURNED TO FLOOR BY WHEEL CHAIR AT 11:05AM FROM RADIATION. PRADO UNCLAMPED,PT IN RECLINER,BED SIDE TABLE AND CALL LIGHT IN REACH.
--- NOTE | 2022-03-11 13:47 | NURSING ---
Fox Schilling in Dr. Mayfield's office, he will be down at the end of day to see the patient.
[2022-03-11 14:11] VITALS: BP 100/53; PULSE 71; RESP 16; TEMP 36.5; O2SAT 99
[2022-03-11] MEDS: Tamsulosin HCl 0.4 MG Capsule PO (17:53)
[2022-03-11] MEDS: tiZANidine HCl 2 MG Tablet 4 MG PO (20:13)
[2022-03-11 21:26] LABS: Bedside Glucose 191 mg/dL (74-106)
[2022-03-11] MEDS: Polyethylene Glycol 3350 17 GM PACKET PO (21:47)
[2022-03-11] MEDS: Insulin Glargine-YFGN 100 UNIT/ML Pen 27 UNIT SC (21:48)
[2022-03-11] MEDS: Senna/Docusate Sodium 1 Tablet 2 TABLET PO (21:48)
[2022-03-12 05:31] VITALS: BP 104/70; PULSE 69
[2022-03-12] MEDS: Topiramate 25 MG Tablet PO ×2 (05:35→17:19)
[2022-03-12] MEDS: APIXABAN 5 MG TABLET PO ×2 (05:35→17:19)
[2022-03-12] MEDS: Nitrofurantoin Macrocrystals 100 MG Capsule PO ×2 (05:35→17:19)
[2022-03-12] MEDS: Loratadine 10 MG Tablet PO (05:35)
[2022-03-12] MEDS: Nadolol 20 MG Tablet 5 MG PO (05:35)
[2022-03-12] MEDS: Pantoprazole Sodium 20 MG Tablet PO (05:36)
[2022-03-12] MEDS: Cyanocobalamin 500 MCG Tablet 250 MCG PO (05:37)
[2022-03-12] MEDS: tiZANidine HCl 2 MG Tablet 4 MG PO ×2 (05:37→17:19)
[2022-03-12] MEDS: Lidocaine 5% Patch 2 PATCH TOPICAL (05:38)
[2022-03-12] MEDS: Menthol/Lanolin/Calamine/Znox 113 GM Tube 1 APPLIC TOPICAL ×2 (05:39→17:19)
[2022-03-12] MEDS: BICALUTAMIDE 50 MG TABLET PO (05:46)
[2022-03-12 06:20] LABS: Bedside Glucose 139 mg/dL (74-106)
[2022-03-12] MEDS: Glucerna Shake 120 ML LIQUID PO ×3 (07:57→17:19)
[2022-03-12] MEDS: Multivitamins,Therapeutic Tablet 1 TABLET PO (07:57)
[2022-03-12] MEDS: traMADol 50 MG Tablet PO ×3 (09:06→23:19)
--- NOTE | 2022-03-12 09:22 | NURSING ---
york tubing clamped for radiation tx
[2022-03-12 10:00] VITALS: PULSE 85; RESP 16; O2SAT 98
--- NOTE | 2022-03-12 11:19 | CASEMGMT ---
Social Work Called to follow up with [place] SNF referrals. [facility] is still reviewing - admissions has been out of the office this week. [facility] not currently [facility] beds available. Updated SO. She did reiterate her first choice is [facility] then [facility] then SNFs in [place]. She would like him to stay closer to his Drs. URSULA expressed understanding. Pt continues to make progress. IDT will continue to evaluate for DC date. URSULA will continue to follow. MONIQUE Ward
[2022-03-12 14:16] VITALS: BP 111/59; PULSE 71; RESP 16; TEMP 36.5; O2SAT 95
[2022-03-12] MEDS: Tamsulosin HCl 0.4 MG Capsule PO (17:19)
[2022-03-12 21:25] LABS: Bedside Glucose 254 mg/dL (74-106)
[2022-03-12] MEDS: Polyethylene Glycol 3350 17 GM PACKET PO (21:33)
[2022-03-12] MEDS: Senna/Docusate Sodium 1 Tablet 2 TABLET PO (21:35)
[2022-03-12] MEDS: Insulin Glargine-YFGN 100 UNIT/ML Pen 27 UNIT SC (23:25)
[2022-03-13] MEDS: Nitrofurantoin Macrocrystals 100 MG Capsule PO ×2 (06:07→17:15)
[2022-03-13] MEDS: tiZANidine HCl 2 MG Tablet 4 MG PO ×2 (06:07→17:14)
[2022-03-13] MEDS: Topiramate 25 MG Tablet PO ×2 (06:08→17:15)
[2022-03-13] MEDS: Loratadine 10 MG Tablet PO (06:08)
[2022-03-13] MEDS: Pantoprazole Sodium 20 MG Tablet PO (06:08)
[2022-03-13] MEDS: APIXABAN 5 MG TABLET PO ×2 (06:08→17:14)
[2022-03-13] MEDS: Cyanocobalamin 500 MCG Tablet 250 MCG PO (06:09)
[2022-03-13] MEDS: Lidocaine 5% Patch 2 PATCH TOPICAL (06:10)
[2022-03-13] MEDS: Menthol/Lanolin/Calamine/Znox 113 GM Tube 1 APPLIC TOPICAL ×2 (06:13→18:10)
[2022-03-13 06:16] LABS: Bedside Glucose 163 mg/dL (74-106)
[2022-03-13] MEDS: BICALUTAMIDE 50 MG TABLET PO (06:31)
[2022-03-13] MEDS: Nadolol 20 MG Tablet 5 MG PO (06:33)
[2022-03-13] MEDS: Glucerna Shake 120 ML LIQUID PO ×3 (08:06→17:14)
[2022-03-13] MEDS: Multivitamins,Therapeutic Tablet 1 TABLET PO (08:06)
--- NOTE | 2022-03-13 10:00 | NURSING ---
pt noted to have 2 lidoderm patches removed.
[2022-03-13] MEDS: traMADol 50 MG Tablet PO ×2 (11:24→21:45)
[2022-03-13 15:15] VITALS: BP 98/61; PULSE 70; RESP 20; TEMP 36.7; O2SAT 98
[2022-03-13] MEDS: Tamsulosin HCl 0.4 MG Capsule PO (17:15)
[2022-03-13 21:31] LABS: Bedside Glucose 224 mg/dL (74-106)
[2022-03-13] MEDS: Senna/Docusate Sodium 1 Tablet 2 TABLET PO (21:46)
[2022-03-13] MEDS: Insulin Glargine-YFGN 100 UNIT/ML Pen 27 UNIT SC (21:46)
[2022-03-13 21:51] VITALS: PULSE 86; RESP 17; O2SAT 98
[2022-03-14 06:18] LABS: Absolute Lymphocyte Count 0.22 X10^3/uL (0.83-4.51); Absolute Neutrophil Count 6.7 X10^3/uL (2.0-7.7); Basophil# 0.03 X10^3/uL; Basophil% 0.4 % (0-1); Eosinophils% 5.1 % (0-5); Hematocrit 27.7 % (40-54); Lymphocyte # 0.22 X10^3/ul (0.83-4.51); Lymphocyte % 2.8 % (19-41); Mean Corp Hgb Conc 32.5 g/dL (32-36); Mean Corpuscular Hgb 30.9 pg (27.0-32.0); Mean Corpuscular Volume 95.2 fL (80-94); Mean Platelet Vol. 10.2 fl (6.2-12.0); Monocyte# 0.43 X10^3/uL; Monocyte% 5.5 % (0-10); NRBC Flagged by Analyzer 0 % (0-5); Neutrophil # 6.71 X10^3/uL (2.7-7.7); Neutrophil % 85.1 % (47-70); POSITIVE DIFFERENTIAL YES; Platelet Count 158 K/mm3 (150-450); RBC Distribution Width CV 15.3 % (11.6-14.6); RBC Distribution Width SD 52.3 fl (35.1-43.9); Red Blood Count 2.91 M/mm3 (4.6-6.2); White Blood Count 7.9 K/mm3 (4.4-11.0)
[2022-03-14] MEDS: APIXABAN 5 MG TABLET PO ×2 (06:19→17:05)
[2022-03-14] MEDS: tiZANidine HCl 2 MG Tablet 4 MG PO ×2 (06:19→17:05)
[2022-03-14] MEDS: Cyanocobalamin 500 MCG Tablet 250 MCG PO (06:20)
[2022-03-14] MEDS: Topiramate 25 MG Tablet PO ×2 (06:20→17:05)
[2022-03-14] MEDS: Pantoprazole Sodium 20 MG Tablet PO (06:21)
[2022-03-14] MEDS: Loratadine 10 MG Tablet PO (06:22)
[2022-03-14] MEDS: Nitrofurantoin Macrocrystals 100 MG Capsule PO (06:23)
[2022-03-14] MEDS: BICALUTAMIDE 50 MG TABLET PO (06:23)
[2022-03-14] MEDS: Lidocaine 5% Patch 2 PATCH TOPICAL (06:24)
[2022-03-14] MEDS: traMADol 50 MG Tablet PO ×3 (06:24→21:47)
[2022-03-14 06:25] LABS: Differential Indicated SCAN CRITERIA MET
[2022-03-14 06:26] LABS: Bedside Glucose 134 mg/dL (74-106)
[2022-03-14 06:39] LABS: Anion Gap 5 (5-15); BUN 35 mg/dL (7-18); BUN/Creat Ratio 29.4 RATIO (10-20); Calcium,Total 9.4 mg/dL (8.5-10.1); Chloride 107 mmol/L (98-107); Creatinine, Serum 1.19 mg/dL (0.70-1.30); EST Glomerular Filtration Rate 64 mL/min (>60); Est Glom Filt Rate - Afr Amer 78 mL/min (>60); Estimated Creatinine Clearance 58.59 ml/min; Glucose 137 mg/dL (74-106); Potassium 4.3 mmol/L (3.5-5.1); Sodium Level 135 mmol/L (136-145)
[2022-03-14 06:40] VITALS: BP 97/54; PULSE 69
--- NOTE | 2022-03-14 06:40 | NURSING ---
Nadolol held at this time d/t BP at 97/54. Pt asymptomatic. Will report to oncoming nurse.
[2022-03-14 06:45] LABS: Anisocytosis 1+; Macrocytosis 1+
[2022-03-14] MEDS: Menthol/Lanolin/Calamine/Znox 113 GM Tube 1 APPLIC TOPICAL ×2 (08:47→17:06)
[2022-03-14] MEDS: Glucerna Shake 120 ML LIQUID PO ×3 (08:48→17:05)
[2022-03-14] MEDS: Multivitamins,Therapeutic Tablet 1 TABLET PO (08:49)
[2022-03-14 08:51] VITALS: BP 94/54; PULSE 70
[2022-03-14 15:20] VITALS: BP 106/61; PULSE 70; RESP 16; TEMP 36.2; O2SAT 98
[2022-03-14] MEDS: Tamsulosin HCl 0.4 MG Capsule PO (17:05)
[2022-03-14 21:31] LABS: Bedside Glucose 176 mg/dL (74-106)
[2022-03-14] MEDS: Insulin Glargine-YFGN 100 UNIT/ML Pen 27 UNIT SC (21:44)
[2022-03-14] MEDS: Senna/Docusate Sodium 1 Tablet 2 TABLET PO (21:47)
[2022-03-15 05:00] VITALS: BP 90/55; PULSE 66
[2022-03-15] MEDS: Topiramate 25 MG Tablet PO ×2 (06:09→18:08)
[2022-03-15] MEDS: tiZANidine HCl 2 MG Tablet 4 MG PO ×2 (06:09→18:09)
[2022-03-15] MEDS: Cyanocobalamin 500 MCG Tablet 250 MCG PO (06:10)
[2022-03-15] MEDS: Pantoprazole Sodium 20 MG Tablet PO (06:10)
[2022-03-15] MEDS: Loratadine 10 MG Tablet PO (06:10)
[2022-03-15] MEDS: APIXABAN 5 MG TABLET PO ×2 (06:10→18:08)
[2022-03-15] MEDS: BICALUTAMIDE 50 MG TABLET PO (06:10)
[2022-03-15] MEDS: Menthol/Lanolin/Calamine/Znox 113 GM Tube 1 APPLIC TOPICAL ×2 (06:12→18:09)
[2022-03-15 06:13] VITALS: BP 98/55
[2022-03-15 06:21] LABS: Bedside Glucose 128 mg/dL (74-106)
[2022-03-15] MEDS: Glucerna Shake 120 ML LIQUID PO ×3 (07:57→18:08)
[2022-03-15] MEDS: Multivitamins,Therapeutic Tablet 1 TABLET PO (07:57)
[2022-03-15] MEDS: traMADol 50 MG Tablet PO ×3 (07:58→23:05)
[2022-03-15] MEDS: Lidocaine 5% Patch 2 PATCH TOPICAL (08:49)
--- NOTE | 2022-03-15 09:09 | NURSING ---
PT PRADO CLAMPED AT 9AM AND PITCHER OF WATER GIVEN BEFORE RADIATION. WILL MONITOR.
--- NOTE | 2022-03-15 09:56 | NURSING ---
NOTIFIED DR. MCINTYRE OFFICE THAT PT PAIN HAS NOT CHANGED SINCE DR. MCINTYRE SEEN PT LAST TUESDAY. WAITING TO HEAR FROM DR. WINSTON AWARE.
[2022-03-15 10:00] VITALS: RESP 18
--- NOTE | 2022-03-15 10:48 | NURSING ---
PT LEFT FLOOR AT 10:30AM BY WHEEL CHAIR FOR RADIATION.
--- NOTE | 2022-03-15 11:41 | NURSING ---
PT RETURNED TO FLOOR AT 11:10 BY WHEELCHAIR FROM RADIATION. PRADO UNCLAMPED,PT IN RECLINER CALL LIGHT AND TABLE IN REACH.
[2022-03-15 14:05] VITALS: BP 97/59; PULSE 70; RESP 16; TEMP 36.3; O2SAT 98
--- NOTE | 2022-03-15 15:39 | NURSING ---
CALLED AND UPDATED EUN ON PT. EUN THANKED THIS NURSE.
--- NOTE | 2022-03-15 17:58 | NURSING ---
Dr. Mayfield to unit, changed patient's Tramadol from PRN to scheduled 4xday. Update Dr. Mayfield on Tuesday on how patient is doing.
[2022-03-15] MEDS: Tamsulosin HCl 0.4 MG Capsule PO (18:08)
--- NOTE | 2022-03-15 18:59 | NURSING ---
THIS NURSE IN TO ROOM TO HELP PULL PT UP AND NOTICED PT LIDODERM PATCHES WERE ON THE FLOOR. ASKED PT WHY THEY WERE OFF. PT STATED I TOOK THEM OFF CAUSE THEY ARE NOT HELPING ME. RN AWARE.
--- NOTE | 2022-03-15 19:43 | PN.TCU_ITS ---
Subjective Subjective Resident seen and examined. He has intractable right hip pain, resident significant other Bob was on speaker phone. Dr. Mayfield consulted, will contact his office to request injection to help with right hip pain. Bob states resident does not tolerate narcotic pain medications well, he suffers hallucinations on narcotics. Also, Bob mentioned if possible, to have resident transfer to [facility] after radiation treatments which will be done in 2 days. I am not sure resident would tolerate 3 hours of therapy per day, I did let both resident and Bob know my concern, but will keep [facility] as an option if appropriate. Objective Data Objective Data Vital Signs: Vital Signs Temp Pulse Resp BP Pulse Ox 97.3 F L 70 16 97/59 L 98 03/15/22 14:05 03/15/22 14:05 03/15/22 14:05 03/15/22 14:05 03/15/22 14:05 Oxygen Delivery Method Room Air Weight: 75.795 kg Body Mass Index (BMI) 27.2 Intake & Output: Intake and Output for Last 24 Hours 03/13/22 03/14/22 03/15/22 23:59 23:59 23:59 Intake Total 720 / 720 840 / 840 840 / 840 Output Total 1050 / 1050 1250 / 1250 1000 / 1000 Balance -330 / -330 -410 / -410 -160 / -160 Lab / Micro Data Result Diagrams: 03/14/22 05:55 03/14/22 05:55 Labs: Laboratory Results - last 24 hr 03/14/22 21:23: POC Glucose 176 H 03/15/22 06:12: POC Glucose 128 H Micro: Microbiology 03/01/22 18:51 Urine Catheter - Calderon Urine Culture - Final Presumptive E. coli 02/26/22 06:59 Nasal Secretion SARS-CoV-2 Antigen (Rapid) - Final 02/19/22 13:10 Nasal Secretion SARS-CoV-2 Antigen (Rapid) - Final Physical Exam Const alert General Appearance: cooperative HEENT normocephalic Eyes PERRL and EOMs intact bilaterally Neck supple, no JVD and no carotid bruits Resp normal respiratory effort, normal air movement and clear to auscultation bilate rally Cardio regular rate and regular rhythm GI normal to inspection, nondistended, normoactive bowel sounds, non-tender and non-distended Extremity normal capillary refill General Extremity: Negative for edema Skin no rashes or lesions noted General Skin Exam: no breakdown Psych affect normal Appearance: appropriate Assessment & Plan Assessment/Plan (1) Debility: (2) Closed right hip fracture: (3) Prostate cancer: (4) Stroke: (5) Atrial fibrillation: (6) Chronic kidney disease, stage 3a: (7) Cirrhosis of liver: (8) FARIAS (nonalcoholic steatohepatitis): (9) Chronic systolic congestive heart failure: (10) Asthma: (11) Diabetes mellitus: (12) Gastroesophageal reflux disease: (13) Seizure disorder: (14) Benign prostate hyperplasia: PLAN: 71 year old male with below past medical history hospitalized for right hip fracture, underwent right hip hemiarthroplasty 02/13/2022, admitted to TCU with debility, here for rehabilitation, strengthening, prior to discharge home alone. * Debility - PT/OT. * Cognition - ST. * Pain - Tramadol 50mg q6h, Lidoderm 2 patches daily. * Bowel - Miralax 17gm qhs, Senna/colace 2 tablets bid, Dulcolax 10mg daily prn. * Adult immunization - Administer pneumonia vaccine, flu vaccine, covid19 vaccine as appropriate. * DVT prophylaxis - Not necessary, already on Eliquis. * Atrial fibrillation - Nadolol 5mg daily, Eliquis 5mg bid. * Prostate cancer - Casodex 50mg daily, Dr. Sal, radiation therapy done in 2 days. * Chronic systolic congestive heart failure - Nadolol 5mg daily. * Vitamin B12 deficiency - B12 250mcg daily. * Diabetes Mellitus II - Glargine 27 units qhs. * Allergic rhinitis - Loratadine 10mg daily. * Nutrition - MVI daily, Glucerna 120ml po tidcm. * GERD - Pantoprazole 20mg daily. * BPH - Tamsulosin 0.4mg daily. * Seizure disorder - Topamax 25mg bid. * Muscle spasm - Tizanidine 4mg bid. * Skin irritation - Calmoseptine topical bid. * Right hip pain - Contact Dr. Mayfield to see if injection would be helpful. Capacity Capacity Assessment Tool Can the patient make a choice & communicate that choice?: Yes Can the patient understand benefits, risks and alternatives?: Yes Can the patient make a logical, rational choice?: Yes Is the choice the patient makes consistent w/ their values?: Yes Is there an impending, emergent risk to the patient?: No Does the patient have an Advance Directive?: No Is there a Surrogate Available?: Yes i.e. HCPOA: Yes i.e. close relative (spouse, child, parent, sibling)?: Yes
[2022-03-15] MEDS: Insulin Glargine-YFGN 100 UNIT/ML Pen 27 UNIT SC (22:02)
[2022-03-15] MEDS: Polyethylene Glycol 3350 17 GM PACKET PO (22:04)
[2022-03-15] MEDS: Senna/Docusate Sodium 1 Tablet 2 TABLET PO (22:05)
[2022-03-16 01:15] LABS: Bedside Glucose 193 mg/dL (74-106)
[2022-03-16] MEDS: Topiramate 25 MG Tablet PO ×2 (06:14→17:27)
[2022-03-16] MEDS: traMADol 50 MG Tablet PO ×4 (06:14→23:44)
[2022-03-16] MEDS: Nadolol 20 MG Tablet 5 MG PO (06:15)
[2022-03-16] MEDS: tiZANidine HCl 2 MG Tablet 4 MG PO ×2 (06:16→17:28)
[2022-03-16] MEDS: APIXABAN 5 MG TABLET PO ×2 (06:16→17:26)
[2022-03-16] MEDS: BICALUTAMIDE 50 MG TABLET PO (06:16)
[2022-03-16] MEDS: Lidocaine 5% Patch 2 PATCH TOPICAL (06:17)
[2022-03-16] MEDS: Loratadine 10 MG Tablet PO (06:17)
[2022-03-16] MEDS: Cyanocobalamin 500 MCG Tablet 250 MCG PO (06:17)
[2022-03-16] MEDS: Pantoprazole Sodium 20 MG Tablet PO (06:18)
[2022-03-16] MEDS: Menthol/Lanolin/Calamine/Znox 113 GM Tube 1 APPLIC TOPICAL ×2 (06:23→17:27)
[2022-03-16 06:51] LABS: Bedside Glucose 132 mg/dL (74-106)
[2022-03-16] MEDS: Glucerna Shake 120 ML LIQUID PO ×3 (08:14→17:32)
[2022-03-16] MEDS: Multivitamins,Therapeutic Tablet 1 TABLET PO (08:15)
--- NOTE | 2022-03-16 08:17 | NURSING ---
PT HAD SMALL BM WITH CLEAR MUCUS AND BLOOD IN IT. PT ALSO STATED HE STILL IS HAVING 10/10 PAIN IN HIP WITH NO SIGNS OF DISCOMFORT. WILL CONTINUE. TO MONITOR RN AWARE.
--- NOTE | 2022-03-16 09:09 | NURSING ---
PRADO CLAMPED AND PITCH OF WATER GIVEN TO PT AT 9:05AM.
[2022-03-16 10:15] VITALS: PULSE 69; RESP 18; O2SAT 96
--- NOTE | 2022-03-16 10:37 | NURSING ---
PT LEFT FLOOR BY WHEEL CHAIR TO RADIATION.
--- NOTE | 2022-03-16 11:08 | NURSING ---
PT RETURNED TO FLOOR BY WHEEL CHAIR FROM RADIATION.
[2022-03-16 14:22] VITALS: BP 97/57; PULSE 69; RESP 14; TEMP 36.8; O2SAT 98
--- NOTE | 2022-03-16 16:04 | CASEMGMT ---
Social Work Patient is finishing radiation, thus moving forward with DC plans. Per SO previous requests, referrals sent to [facility] and [facility] Left message with SO to confirm and explain the process. Pt is still making progress on TCU and no DC date has been set. SW to continue to follow. Janeen Kline ,NUCLEAR FUEL ENRICHMENT TECHNICIAN EXCEL SPECIALIST
--- NOTE | 2022-03-16 16:57 | CASEMGMT ---
Social Work Received return phone call from SO. Explained [facility] accepted pt, but may only get about 10-14 days approved and he cannot DC back to TCU. Explained pt is making progress under Medicare in TCU; once he plateaus, he would not be eligible for [facility]. Pt would DC from TCU to home or SNF. SO expressed understanding and is agreeable to keep pt in TCU and the plan is home. Still discussed reality of home at [facility] alone. SO expressed understanding and would like [place] move [place] to [place] closer to her, but concerned about f/u with his doctors in [place], and still interested in [facility]. SW will update SO of [facility] outcome and updates about pt's progress. SO expressed appreciation. Janeen Kline, SUPERVISOR ASSEMBLY ROOM FOOD AND BEVERAGE CONTROLLER
[2022-03-16] MEDS: Tamsulosin HCl 0.4 MG Capsule PO (17:26)
--- NOTE | 2022-03-16 18:55 | NURSING ---
CALLED AND UPDATED EUN ON PT. EUN VERY THANKFUL AND STATED SHE WILL BE UP TOMORROW,03/17/22 TO SEE PT AND BE HERE FOR HIS LAST RADIATION TREATMENT. DR. MCINTYRE TO BE CALLED ALSO TOMORROW TO UPDATE HIM ON HOW PT IS DOING WITH PAIN AND THE NEXT STEPS.
[2022-03-16] MEDS: Polyethylene Glycol 3350 17 GM PACKET PO (20:59)
[2022-03-16] MEDS: Senna/Docusate Sodium 1 Tablet 2 TABLET PO (20:59)
[2022-03-16] MEDS: Insulin Glargine-YFGN 100 UNIT/ML Pen 27 UNIT SC (21:04)
[2022-03-16 22:56] LABS: Bedside Glucose 161 mg/dL (74-106)
[2022-03-17] MEDS: traMADol 50 MG Tablet PO ×3 (05:40→22:26)
[2022-03-17] MEDS: Topiramate 25 MG Tablet PO ×2 (05:40→17:43)
[2022-03-17] MEDS: Pantoprazole Sodium 20 MG Tablet PO (05:41)
[2022-03-17] MEDS: Cyanocobalamin 500 MCG Tablet 250 MCG PO (05:41)
[2022-03-17] MEDS: Loratadine 10 MG Tablet PO (05:41)
[2022-03-17] MEDS: BICALUTAMIDE 50 MG TABLET PO (05:42)
[2022-03-17] MEDS: APIXABAN 5 MG TABLET PO (05:43)
[2022-03-17] MEDS: Nadolol 20 MG Tablet 5 MG PO (05:43)
[2022-03-17] MEDS: Lidocaine 5% Patch 2 PATCH TOPICAL (05:43)
[2022-03-17] MEDS: tiZANidine HCl 2 MG Tablet 4 MG PO ×2 (05:44→17:43)
[2022-03-17] MEDS: Menthol/Lanolin/Calamine/Znox 113 GM Tube 1 APPLIC TOPICAL ×2 (05:50→17:43)
[2022-03-17 06:21] LABS: Bedside Glucose 123 mg/dL (74-106)
--- NOTE | 2022-03-17 07:44 | NURSING ---
Addendum entered by Yamileth Pollock 03/17/22 16:07: Dr. Mayfield called this nurse and is requesting that pt should have f/u with his orthopedic surgeon to r/o infection, or further injury that could be causing his pain. Dr. Mayfield gave verbal order for Butranz patch 5mcg x 7 days and change ultram back to prn. [facility] called and a f/u was scheduled for 03/23/22 at 1345, Bob HERNÁNDEZ stated she would take him to appointment. Original Note: Dr. Mayfield's office updated on intractable hip pain and need for another consult.
[2022-03-17] MEDS: Glucerna Shake 120 ML LIQUID PO (08:21)
[2022-03-17] MEDS: Multivitamins,Therapeutic Tablet 1 TABLET PO (08:22)
--- NOTE | 2022-03-17 10:45 | NURSING ---
Pts catheter clamped around 9am and fluids pushed per request from radiation. At approx 1015 SUPERVISOR TESTING came and got this nurse stating pts shorts were wet. This nurse went to assess pt and noted his york to still be intact and clamped, pt stated he had desire to pee and urinated around his catheter. pt left floor for radiation at approx 1040
[2022-03-17 13:48] VITALS: BP 96/60; PULSE 73; RESP 16; TEMP 36.6; O2SAT 99
--- NOTE | 2022-03-17 17:01 | CASEMGMT ---
[facility] Updated SO. Janeen Kline, SALES PROJECT COORDINATOR NAPHTHALENE OPERATOR HELPER
[2022-03-17] MEDS: Tamsulosin HCl 0.4 MG Capsule PO (17:43)
[2022-03-17] MEDS: BUPRENORPHINE 10 MCG/HR PATCH 1 PATCH TD (18:03)
[2022-03-17 21:36] LABS: Bedside Glucose 220 mg/dL (74-106)
[2022-03-17] MEDS: Insulin Glargine-YFGN 100 UNIT/ML Pen 27 UNIT SC (22:29)
[2022-03-17] MEDS: Polyethylene Glycol 3350 17 GM PACKET PO (22:30)
[2022-03-17] MEDS: Senna/Docusate Sodium 1 Tablet 2 TABLET PO (22:30)
[2022-03-18] MEDS: Loratadine 10 MG Tablet PO (05:43)
[2022-03-18] MEDS: Pantoprazole Sodium 20 MG Tablet PO (05:43)
[2022-03-18] MEDS: BICALUTAMIDE 50 MG TABLET PO (05:43)
[2022-03-18] MEDS: Lidocaine 5% Patch 2 PATCH TOPICAL (05:43)
[2022-03-18] MEDS: Topiramate 25 MG Tablet PO ×2 (05:43→17:06)
[2022-03-18] MEDS: Cyanocobalamin 500 MCG Tablet 250 MCG PO (05:43)
[2022-03-18] MEDS: Menthol/Lanolin/Calamine/Znox 113 GM Tube 1 APPLIC TOPICAL ×2 (05:44→17:07)
[2022-03-18] MEDS: Nadolol 20 MG Tablet 5 MG PO (05:44)
[2022-03-18] MEDS: traMADol 50 MG Tablet PO ×2 (05:44→21:41)
[2022-03-18] MEDS: tiZANidine HCl 2 MG Tablet 4 MG PO ×2 (05:45→17:06)
[2022-03-18 06:21] LABS: Bedside Glucose 123 mg/dL (74-106)
[2022-03-18] MEDS: Multivitamins,Therapeutic Tablet 1 TABLET PO (08:01)
--- NOTE | 2022-03-18 09:50 | NURSING ---
Calderon catheter removed at this time, will monitor for further retention and bladderscan
--- NOTE | 2022-03-18 13:28 | NURSING ---
Spoke with Bridgette at Dr. Saravia's office. They will check with Dr. Saravia regarding if the patient should be seen while on TCU or after d/c from TCU.
--- NOTE | 2022-03-18 14:56 | NURSING ---
Butrans patch noted to right upper back
--- NOTE | 2022-03-18 15:18 | NURSING ---
Esther, from Dr. Saravia's office called back and stated that Dr. Saravia said that he will see the patient in the office after d/c from TCU. Appt. needs to be set-up as part of the discharge plan.
[2022-03-18 16:00] VITALS: BP 103/62; PULSE 70; RESP 16; TEMP 36.2; O2SAT 90
[2022-03-18] MEDS: Tamsulosin HCl 0.4 MG Capsule PO (17:06)
[2022-03-18 21:30] LABS: Bedside Glucose 171 mg/dL (74-106)
[2022-03-18] MEDS: Polyethylene Glycol 3350 17 GM PACKET PO (21:37)
[2022-03-18] MEDS: Senna/Docusate Sodium 1 Tablet 2 TABLET PO (21:38)
[2022-03-18] MEDS: Insulin Glargine-YFGN 100 UNIT/ML Pen 27 UNIT SC (21:42)
--- NOTE | 2022-03-19 00:14 | NURSING ---
Patient frequently using call light to use restroom so far this shift. After REPAIRER SASH AND DOOR or myself would answer patients light assistant front office manager system, Patient would begin to yell out, Toy help me. Someone help me. Will someone come help me NOW! Patient was heard from Nurses station. This Nurse entered room and asked patient why he was yelling out so loud? Explained to patient it was after midnight and other patient's were trying to sleep. Patient responded with, I don't care about them. I have to poop! Patient has went into restroom 6-7 times so far this shift with no results. Educated patient that maybe he needed to sit on the toilet longer to try. Patient then said, If you don't want to help me, I don't care, I will just report you. Advised patient that was not what was said. Assisted patient to sitting position. Patient stood x1 assist and FWW. Slow shuffled gait into restroom. As ambulating, patient kept looking at this Nurses badge. Patient then states, Tarsha, I am reporting you for being rude! Patient assisted to toilet. Asked patient if he would like to try PRN Dulcolax if he cannot go this time. Patient agreeable. Apologized to patient if he thought this Nurse was being rude. Patient ignored this Nurse. Gave patient privacy to use restroom and went to get PRN Medication. Went back into room with CALVIN Modi (On orientation) Patient ambulated back to bed. Assisted into bed with x2 assist. Bowel sounds hyperactive. Abdomen soft. Oral Dulcolax administered per order. Patient did laugh and become more friendly with this nurse.
[2022-03-19] MEDS: Bisacodyl 5 MG Tablet 10 MG PO (00:36)
[2022-03-19] MEDS: Loratadine 10 MG Tablet PO (06:12)
[2022-03-19] MEDS: Pantoprazole Sodium 20 MG Tablet PO (06:12)
[2022-03-19] MEDS: Topiramate 25 MG Tablet PO ×2 (06:13→17:47)
[2022-03-19] MEDS: BICALUTAMIDE 50 MG TABLET PO (06:13)
[2022-03-19] MEDS: tiZANidine HCl 2 MG Tablet 4 MG PO ×2 (06:13→17:47)
[2022-03-19] MEDS: Nadolol 20 MG Tablet 5 MG PO (06:14)
[2022-03-19] MEDS: Cyanocobalamin 500 MCG Tablet 250 MCG PO (06:15)
[2022-03-19] MEDS: Lidocaine 5% Patch 2 PATCH TOPICAL (06:15)
[2022-03-19] MEDS: Menthol/Lanolin/Calamine/Znox 113 GM Tube 1 APPLIC TOPICAL ×2 (06:16→17:42)
[2022-03-19 06:25] LABS: Bedside Glucose 158 mg/dL (74-106)
--- NOTE | 2022-03-19 07:27 | NURSING ---
Buprenorphine patch noted to right upper back.
[2022-03-19] MEDS: Multivitamins,Therapeutic Tablet 1 TABLET PO (08:02)
[2022-03-19] MEDS: traMADol 50 MG Tablet PO ×3 (08:05→22:11)
[2022-03-19 15:41] VITALS: BP 105/64; PULSE 70; RESP 14; TEMP 36.3
[2022-03-19] MEDS: Tamsulosin HCl 0.4 MG Capsule PO (17:48)
[2022-03-19 22:06] LABS: Bedside Glucose 189 mg/dL (74-106)
[2022-03-19] MEDS: Polyethylene Glycol 3350 17 GM PACKET PO (22:10)
[2022-03-19] MEDS: Senna/Docusate Sodium 1 Tablet 2 TABLET PO (22:10)
[2022-03-19] MEDS: Insulin Glargine-YFGN 100 UNIT/ML Pen 27 UNIT SC (22:11)
[2022-03-20] MEDS: Lidocaine 5% Patch 2 PATCH TOPICAL (05:34)
[2022-03-20] MEDS: Nadolol 20 MG Tablet 5 MG PO (05:36)
[2022-03-20] MEDS: Menthol/Lanolin/Calamine/Znox 113 GM Tube 1 APPLIC TOPICAL (05:40)
[2022-03-20] MEDS: Loratadine 10 MG Tablet PO (05:40)
[2022-03-20] MEDS: BICALUTAMIDE 50 MG TABLET PO (05:41)
[2022-03-20] MEDS: Pantoprazole Sodium 20 MG Tablet PO (05:41)
[2022-03-20] MEDS: Cyanocobalamin 500 MCG Tablet 250 MCG PO (05:42)
[2022-03-20] MEDS: Topiramate 25 MG Tablet PO ×2 (05:42→17:58)
[2022-03-20] MEDS: tiZANidine HCl 2 MG Tablet 4 MG PO ×2 (05:43→17:58)
[2022-03-20] MEDS: traMADol 50 MG Tablet PO ×3 (05:46→17:57)
[2022-03-20 06:26] LABS: Bedside Glucose 176 mg/dL (74-106)
[2022-03-20] MEDS: Multivitamins,Therapeutic Tablet 1 TABLET PO (08:06)
[2022-03-20 08:49] VITALS: RESP 18
--- NOTE | 2022-03-20 09:36 | NURSING ---
Spoke with Bob patient's contact, she stated she does not want him to have oxycodone, stating he has severe hallucinations when he takes oxycodone.
[2022-03-20 14:41] VITALS: BP 110/63; PULSE 70; RESP 16; TEMP 36.3; O2SAT 99
[2022-03-20] MEDS: Tamsulosin HCl 0.4 MG Capsule PO (17:57)
[2022-03-20] MEDS: APIXABAN 5 MG TABLET PO (18:02)
[2022-03-20 21:11] LABS: Bedside Glucose 162 mg/dL (74-106)
[2022-03-20] MEDS: Senna/Docusate Sodium 1 Tablet 2 TABLET PO (21:16)
[2022-03-20] MEDS: Polyethylene Glycol 3350 17 GM PACKET PO (21:16)
[2022-03-20] MEDS: Insulin Glargine-YFGN 100 UNIT/ML Pen 27 UNIT SC (21:17)
[2022-03-21] MEDS: Lidocaine 5% Patch 2 PATCH TOPICAL (03:55)
[2022-03-21] MEDS: tiZANidine HCl 2 MG Tablet 4 MG PO ×2 (03:59→17:14)
[2022-03-21] MEDS: Pantoprazole Sodium 20 MG Tablet PO (04:00)
[2022-03-21] MEDS: Loratadine 10 MG Tablet PO (04:00)
[2022-03-21] MEDS: Cyanocobalamin 500 MCG Tablet 250 MCG PO (04:00)
[2022-03-21] MEDS: Nadolol 20 MG Tablet 5 MG PO (04:00)
[2022-03-21] MEDS: APIXABAN 5 MG TABLET PO ×2 (04:01→17:13)
[2022-03-21] MEDS: Topiramate 25 MG Tablet PO ×2 (04:01→17:13)
[2022-03-21] MEDS: BICALUTAMIDE 50 MG TABLET PO (04:01)
[2022-03-21] MEDS: Menthol/Lanolin/Calamine/Znox 113 GM Tube 1 APPLIC TOPICAL ×2 (04:01→17:13)
[2022-03-21] MEDS: traMADol 50 MG Tablet PO ×4 (06:06→22:19)
[2022-03-21 06:55] LABS: Bedside Glucose 164 mg/dL (74-106)
[2022-03-21 06:56] LABS: Bedside Glucose 148 mg/dL (74-106)
[2022-03-21] MEDS: Multivitamins,Therapeutic Tablet 1 TABLET PO (08:07)
[2022-03-21 08:13] LABS: Absolute Lymphocyte Count 0.21 X10^3/uL (0.83-4.51); Absolute Neutrophil Count 4.4 X10^3/uL (2.0-7.7); Basophil# 0.02 X10^3/uL; Basophil% 0.4 % (0-1); Eosinophil# 0.36 X10^3/uL; Eosinophils% 6.6 % (0-5); Hematocrit 29.3 % (40-54); Hemoglobin 9.5 g/dL (13.0-16.5); Lymphocyte # 0.21 X10^3/ul (0.83-4.51); Lymphocyte % 3.8 % (19-41); Mean Corp Hgb Conc 32.4 g/dL (32-36); Mean Corpuscular Hgb 31.8 pg (27.0-32.0); Mean Platelet Vol. 10.5 fl (6.2-12.0); Monocyte# 0.46 X10^3/uL; Monocyte% 8.4 % (0-10); NRBC Flagged by Analyzer 0 % (0-5); Neutrophil # 4.41 X10^3/uL (2.7-7.7); Neutrophil % 80.3 % (47-70); POSITIVE DIFFERENTIAL YES; Platelet Count 163 K/mm3 (150-450); RBC Distribution Width CV 16.3 % (11.6-14.6); RBC Distribution Width SD 57.6 fl (35.1-43.9); Red Blood Count 2.99 M/mm3 (4.6-6.2); White Blood Count 5.5 K/mm3 (4.4-11.0)
[2022-03-21 08:14] LABS: Differential Indicated SCAN CRITERIA MET
[2022-03-21 08:26] LABS: Anion Gap 4 (5-15); BUN 33 mg/dL (7-18); BUN/Creat Ratio 23.9 RATIO (10-20); Calcium,Total 9.6 mg/dL (8.5-10.1); Chloride 108 mmol/L (98-107); Creatinine, Serum 1.38 mg/dL (0.70-1.30); EST Glomerular Filtration Rate 54 mL/min (>60); Est Glom Filt Rate - Afr Amer 66 mL/min (>60); Estimated Creatinine Clearance 50.52 ml/min; Glucose 153 mg/dL (74-106); Potassium 4.2 mmol/L (3.5-5.1); Sodium Level 136 mmol/L (136-145)
[2022-03-21 14:53] VITALS: BP 97/53; PULSE 70; RESP 16; TEMP 36.6; O2SAT 98
[2022-03-21] MEDS: Tamsulosin HCl 0.4 MG Capsule PO (17:13)
[2022-03-21 21:06] LABS: Bedside Glucose 210 mg/dL (74-106)
[2022-03-21] MEDS: Insulin Glargine-YFGN 100 UNIT/ML Pen 27 UNIT SC (22:20)
[2022-03-22 06:15] LABS: Bedside Glucose 167 mg/dL (74-106)
[2022-03-22] MEDS: traMADol 50 MG Tablet PO ×3 (06:27→23:53)
[2022-03-22] MEDS: Loratadine 10 MG Tablet PO (06:28)
[2022-03-22] MEDS: tiZANidine HCl 2 MG Tablet 4 MG PO ×2 (06:28→17:41)
[2022-03-22] MEDS: Lidocaine 5% Patch 2 PATCH TOPICAL (06:28)
[2022-03-22] MEDS: Pantoprazole Sodium 20 MG Tablet PO (06:28)
[2022-03-22] MEDS: APIXABAN 5 MG TABLET PO ×2 (06:29→17:39)
[2022-03-22] MEDS: Nadolol 20 MG Tablet 5 MG PO (06:29)
[2022-03-22] MEDS: Menthol/Lanolin/Calamine/Znox 113 GM Tube 1 APPLIC TOPICAL ×2 (06:29→17:30)
[2022-03-22] MEDS: BICALUTAMIDE 50 MG TABLET PO (06:29)
[2022-03-22] MEDS: Cyanocobalamin 500 MCG Tablet 250 MCG PO (06:29)
[2022-03-22] MEDS: Topiramate 25 MG Tablet PO ×2 (06:31→17:40)
[2022-03-22] MEDS: Bisacodyl 5 MG Tablet 10 MG PO (06:34)
[2022-03-22] MEDS: Multivitamins,Therapeutic Tablet 1 TABLET PO (08:12)
[2022-03-22 14:32] VITALS: BP 112/63; PULSE 72; RESP 16; TEMP 36.3; O2SAT 98
--- NOTE | 2022-03-22 16:00 | NURSING ---
BUTRANS PATCH VERIFIED TO RIGHT UPPER BACK.
[2022-03-22] MEDS: Tamsulosin HCl 0.4 MG Capsule PO (17:40)
[2022-03-22 21:31] LABS: Bedside Glucose 190 mg/dL (74-106)
[2022-03-22] MEDS: Insulin Glargine-YFGN 100 UNIT/ML Pen 27 UNIT SC (21:52)
[2022-03-22 23:36] VITALS: RESP 18
[2022-03-23] MEDS: Lidocaine 5% Patch 2 PATCH TOPICAL (04:29)
[2022-03-23] MEDS: tiZANidine HCl 2 MG Tablet 4 MG PO ×2 (04:33→17:41)
[2022-03-23] MEDS: BICALUTAMIDE 50 MG TABLET PO (04:33)
[2022-03-23] MEDS: APIXABAN 5 MG TABLET PO ×2 (04:34→17:42)
[2022-03-23] MEDS: Nadolol 20 MG Tablet 5 MG PO (04:34)
[2022-03-23] MEDS: Topiramate 25 MG Tablet PO ×2 (04:34→17:39)
[2022-03-23] MEDS: Pantoprazole Sodium 20 MG Tablet PO (04:35)
[2022-03-23] MEDS: Loratadine 10 MG Tablet PO (04:35)
[2022-03-23] MEDS: Menthol/Lanolin/Calamine/Znox 113 GM Tube 1 APPLIC TOPICAL ×2 (04:36→17:45)
[2022-03-23] MEDS: Cyanocobalamin 500 MCG Tablet 250 MCG PO (04:36)
[2022-03-23 06:26] LABS: Bedside Glucose 145 mg/dL (74-106)
[2022-03-23] MEDS: Multivitamins,Therapeutic Tablet 1 TABLET PO (08:43)
[2022-03-23] MEDS: traMADol 50 MG Tablet PO ×2 (08:45→22:47)
--- NOTE | 2022-03-23 12:52 | NURSING ---
Addendum entered by Yamileth oPllock 03/23/22 17:30: pt returned to unit at approx 5pm Original Note: Pt left floor for f/u appointment with surgeon
[2022-03-23 16:00] VITALS: BP 121/88; PULSE 71; RESP 16; TEMP 37.1; O2SAT 98
--- NOTE | 2022-03-23 17:31 | NURSING ---
butrans patch verified to right upper back
--- NOTE | 2022-03-23 17:32 | NURSING ---
Bob and pt back from appointment stated that surgeon said his hip looked good but not uncommon to have pain for 6-8 weeks after and can be up to 12 weeks. Does not recommend the steroid injection at this time, states he thinks the pain could be coming from his back, Xrays completed on back in office. Bob states he is going to fax orders for MRI ect. for his back and f/u in 6 weeks.
[2022-03-23] MEDS: Tamsulosin HCl 0.4 MG Capsule PO (17:41)
[2022-03-23 21:20] LABS: Bedside Glucose 156 mg/dL (74-106)
[2022-03-23] MEDS: Insulin Glargine-YFGN 100 UNIT/ML Pen 27 UNIT SC (22:46)
--- NOTE | 2022-03-24 04:01 | PCA ---
patient has not slept tonight, keeps getting up and onto bedside toilet but only urinates. walked to bathroom one time and while walking took brief off and was peeing onto the floor on the way to bathroom
[2022-03-24] MEDS: traMADol 50 MG Tablet PO ×2 (06:10→18:26)
[2022-03-24] MEDS: Topiramate 25 MG Tablet PO ×2 (06:11→18:19)
[2022-03-24] MEDS: BICALUTAMIDE 50 MG TABLET PO (06:12)
[2022-03-24] MEDS: Menthol/Lanolin/Calamine/Znox 113 GM Tube 1 APPLIC TOPICAL ×2 (06:12→18:15)
[2022-03-24] MEDS: tiZANidine HCl 2 MG Tablet 4 MG PO ×2 (06:12→18:21)
[2022-03-24] MEDS: Cyanocobalamin 500 MCG Tablet 250 MCG PO (06:12)
[2022-03-24] MEDS: Loratadine 10 MG Tablet PO (06:12)
[2022-03-24] MEDS: Pantoprazole Sodium 20 MG Tablet PO (06:12)
[2022-03-24] MEDS: Nadolol 20 MG Tablet 5 MG PO (06:12)
[2022-03-24] MEDS: APIXABAN 5 MG TABLET PO ×2 (06:12→18:18)
[2022-03-24] MEDS: Lidocaine 5% Patch 2 PATCH TOPICAL (06:13)
[2022-03-24 06:21] LABS: Bedside Glucose 152 mg/dL (74-106)
[2022-03-24] MEDS: Multivitamins,Therapeutic Tablet 1 TABLET PO (09:13)
[2022-03-24 09:39] LABS: Mucous, Urine 0 SEEN /hpf (<or=2+); Red Blood Cells-Urine 0 SEEN /hpf (0-5); Squamous Epithelial Cells - UA 0 SEEN /hpf (0-5)
[2022-03-24 09:45] LABS: Color, Urine Yellow (Yellow); Glucose, Dipstick Normal (Normal); Ketone-Dipstick Negative (Negative); Leukocyte Esterase-Dipstick 500 /ul (Negative); Nitrite-Dipstick Positive (Negative); Occult Blood-Urine 50 /ul (Negative); Protein-Dipstick 100 mg/dl (Negative); Urine Bilirubin Dipstick Negative (Negative); Urine Clarity Cloudy (Clear); Urine Urobilinogen 1 mg/dl (Normal)
[2022-03-24 10:04] LABS: Bacteria 3+ /hpf (None Seen); White Blood Cells >100 SEEN /hpf (0-5)
[2022-03-24 10:25] VITALS: PULSE 88; RESP 18; O2SAT 97
--- NOTE | 2022-03-24 15:44 | NURSING ---
TALKED TO JORGE ROSS, DUE TO BLOOD AND INFLAMMATION FROM [facility] NEW ORDER FOR HYDROCORTISONE SUPPOSITORY 25MG,BID, FOR 7 DAYS. AT 7 DAYS REEVALUATE PT AND LET HIM KNOW HOW PT IS DOING. RN AWARE
[2022-03-24 16:00] VITALS: BP 97/56; PULSE 70; RESP 16; TEMP 36.1; O2SAT 97
[2022-03-24] MEDS: Tamsulosin HCl 0.4 MG Capsule PO (18:20)
--- NOTE | 2022-03-24 18:29 | NURSING ---
YESY PATCH REMOVED BY THIS NURSE AND TISH BEY WITNESS THIS NURSE WASTE IT IN DESTROYER. PATCH WAS NOT IN ACCUDOSE TO WASTE. RN AWARE
--- NOTE | 2022-03-24 19:40 | NURSING ---
20 gauge IV started in right AC, flushed with 10 cc Normal Saline, secured with tegaderm and tape. Patient tolerated well.
[2022-03-24] MEDS: 0.9% Saline Lock 10 ML Syringe IV (20:44)
[2022-03-24] MEDS: 0.9% NaCl IVPB Med Flush (250 mL) 15 ML IV (20:44)
[2022-03-24 21:36] LABS: Bedside Glucose 187 mg/dL (74-106)
[2022-03-24] MEDS: Insulin Glargine-YFGN 100 UNIT/ML Pen 27 UNIT SC (22:12)
[2022-03-24] MEDS: Hydrocortisone 25 MG Suppository RC (22:17)
[2022-03-25] MEDS: 0.9% Saline Lock 10 ML Syringe IV ×4 (01:22→17:24)
[2022-03-25] MEDS: tiZANidine HCl 2 MG Tablet 4 MG PO ×2 (05:25→17:23)
[2022-03-25] MEDS: Loratadine 10 MG Tablet PO (05:25)
[2022-03-25] MEDS: Nadolol 20 MG Tablet 5 MG PO (05:25)
[2022-03-25] MEDS: Topiramate 25 MG Tablet PO ×2 (05:26→17:22)
[2022-03-25] MEDS: Menthol/Lanolin/Calamine/Znox 113 GM Tube 1 APPLIC TOPICAL ×2 (05:26→17:23)
[2022-03-25] MEDS: Pantoprazole Sodium 20 MG Tablet PO (05:26)
[2022-03-25] MEDS: APIXABAN 5 MG TABLET PO ×2 (05:26→17:23)
[2022-03-25] MEDS: Cyanocobalamin 500 MCG Tablet 250 MCG PO (05:26)
[2022-03-25] MEDS: BICALUTAMIDE 50 MG TABLET PO (05:26)
[2022-03-25] MEDS: 0.9% NaCl IVPB Med Flush (250 mL) 15 ML IV ×2 (05:53→22:23)
[2022-03-25 06:26] LABS: Bedside Glucose 142 mg/dL (74-106)
--- NOTE | 2022-03-25 06:52 | NURSING ---
Patient observed playing with IV in Right AC. IV infiltrated. New IV placed in right wrist of patient. Patent. Flushing well.
--- NOTE | 2022-03-25 06:53 | NURSING ---
Patient declining suppository medication and pain patch this AM. States that he would rather puke than have those medications. Education provided, patient still declines.
[2022-03-25 06:59] VITALS: BP 134/76
[2022-03-25] MEDS: Multivitamins,Therapeutic Tablet 1 TABLET PO (08:36)
[2022-03-25 15:30] VITALS: BP 105/62; PULSE 70; RESP 16; TEMP 37.2; O2SAT 97
[2022-03-25] MEDS: Hydrocortisone 25 MG Suppository RC (17:22)
[2022-03-25] MEDS: Tamsulosin HCl 0.4 MG Capsule PO (17:22)
[2022-03-25 21:40] LABS: Bedside Glucose 222 mg/dL (74-106)
[2022-03-25 22:10] VITALS: PULSE 70; RESP 16; O2SAT 95
[2022-03-25] MEDS: Insulin Glargine-YFGN 100 UNIT/ML Pen 27 UNIT SC (22:14)
[2022-03-26] MEDS: LORazepam 0.5 MG Tablet PO (00:20)
[2022-03-26] MEDS: Hydrocortisone 25 MG Suppository RC ×2 (05:40→16:38)
[2022-03-26] MEDS: Topiramate 25 MG Tablet PO ×2 (05:41→16:39)
[2022-03-26] MEDS: Lidocaine 5% Patch 2 PATCH TOPICAL (05:41)
[2022-03-26] MEDS: BICALUTAMIDE 50 MG TABLET PO (05:51)
[2022-03-26] MEDS: APIXABAN 5 MG TABLET PO ×2 (05:51→16:39)
[2022-03-26] MEDS: Nadolol 20 MG Tablet 5 MG PO (05:52)
[2022-03-26] MEDS: Pantoprazole Sodium 20 MG Tablet PO (05:52)
[2022-03-26] MEDS: Menthol/Lanolin/Calamine/Znox 113 GM Tube 1 APPLIC TOPICAL ×2 (05:52→16:45)
[2022-03-26] MEDS: Loratadine 10 MG Tablet PO (05:52)
[2022-03-26] MEDS: Cyanocobalamin 500 MCG Tablet 250 MCG PO (05:53)
[2022-03-26] MEDS: tiZANidine HCl 2 MG Tablet 4 MG PO ×2 (05:53→16:39)
[2022-03-26 06:36] LABS: Bedside Glucose 136 mg/dL (74-106)
[2022-03-26] MEDS: Multivitamins,Therapeutic Tablet 1 TABLET PO (08:57)
[2022-03-26] MEDS: 0.9% Saline Lock 10 ML Syringe IV (14:30)
[2022-03-26 16:00] VITALS: BP 143/62; PULSE 70; RESP 18; TEMP 36.9; O2SAT 100
--- NOTE | 2022-03-26 16:11 | NURSING ---
All care done in room, remains in contact precautions for ESBL
[2022-03-26] MEDS: Tamsulosin HCl 0.4 MG Capsule PO (16:40)
--- NOTE | 2022-03-26 17:42 | NURSING ---
Pt and family notified of staff member and another pt testing positive for covid.
[2022-03-26] MEDS: Insulin Glargine-YFGN 100 UNIT/ML Pen 27 UNIT SC (21:33)
[2022-03-26 21:36] LABS: Bedside Glucose 192 mg/dL (74-106)
[2022-03-26] MEDS: traMADol 50 MG Tablet PO (21:36)
[2022-03-27] MEDS: Lidocaine 5% Patch 2 PATCH TOPICAL (06:13)
[2022-03-27] MEDS: Nadolol 20 MG Tablet 5 MG PO (06:15)
[2022-03-27] MEDS: Menthol/Lanolin/Calamine/Znox 113 GM Tube 1 APPLIC TOPICAL ×2 (06:16→17:30)
[2022-03-27] MEDS: BICALUTAMIDE 50 MG TABLET PO (06:16)
[2022-03-27] MEDS: Hydrocortisone 25 MG Suppository RC ×2 (06:17→17:21)
[2022-03-27] MEDS: Cyanocobalamin 500 MCG Tablet 250 MCG PO (06:17)
[2022-03-27] MEDS: APIXABAN 5 MG TABLET PO ×2 (06:18→17:21)
[2022-03-27] MEDS: Topiramate 25 MG Tablet PO ×2 (06:18→17:21)
[2022-03-27] MEDS: tiZANidine HCl 2 MG Tablet 4 MG PO ×2 (06:18→17:27)
[2022-03-27] MEDS: Loratadine 10 MG Tablet PO (06:19)
[2022-03-27] MEDS: Pantoprazole Sodium 20 MG Tablet PO (06:25)
[2022-03-27 06:31] LABS: Bedside Glucose 145 mg/dL (74-106)
[2022-03-27 06:35] VITALS: BP 120/65; PULSE 69; RESP 16; TEMP 36.4; O2SAT 98
[2022-03-27] MEDS: Multivitamins,Therapeutic Tablet 1 TABLET PO (08:45)
[2022-03-27] MEDS: 0.9% Saline Lock 10 ML Syringe IV ×3 (10:30→22:27)
[2022-03-27] MEDS: traMADol 50 MG Tablet PO ×2 (11:51→20:12)
[2022-03-27 16:00] VITALS: BP 116/53; PULSE 70; RESP 16; TEMP 35.8; O2SAT 96
[2022-03-27] MEDS: Tamsulosin HCl 0.4 MG Capsule PO (17:21)
[2022-03-27] MEDS: Insulin Glargine-YFGN 100 UNIT/ML Pen 27 UNIT SC (22:25)
[2022-03-27 22:40] LABS: Bedside Glucose 140 mg/dL (74-106)
[2022-03-28] MEDS: LORazepam 0.5 MG Tablet PO (00:39)
[2022-03-28] MEDS: 0.9% Saline Lock 10 ML Syringe IV ×2 (04:50→14:37)
[2022-03-28] MEDS: Nadolol 20 MG Tablet 5 MG PO (05:04)
[2022-03-28] MEDS: Loratadine 10 MG Tablet PO (05:04)
[2022-03-28] MEDS: Topiramate 25 MG Tablet PO ×2 (05:04→18:01)
[2022-03-28] MEDS: Hydrocortisone 25 MG Suppository RC ×2 (05:04→18:41)
[2022-03-28] MEDS: BICALUTAMIDE 50 MG TABLET PO (05:04)
[2022-03-28] MEDS: APIXABAN 5 MG TABLET PO ×2 (05:05→18:01)
[2022-03-28] MEDS: Pantoprazole Sodium 20 MG Tablet PO (05:05)
[2022-03-28] MEDS: Cyanocobalamin 500 MCG Tablet 250 MCG PO (05:06)
[2022-03-28] MEDS: tiZANidine HCl 2 MG Tablet 4 MG PO ×2 (05:07→18:01)
[2022-03-28] MEDS: Lidocaine 5% Patch 2 PATCH TOPICAL (05:09)
[2022-03-28] MEDS: Menthol/Lanolin/Calamine/Znox 113 GM Tube 1 APPLIC TOPICAL ×2 (05:09→18:02)
[2022-03-28] MEDS: traMADol 50 MG Tablet PO ×2 (05:28→21:37)
[2022-03-28 05:51] LABS: Bedside Glucose 133 mg/dL (74-106)
[2022-03-28 07:22] LABS: Absolute Lymphocyte Count 0.28 X10^3/uL (0.83-4.51); Absolute Neutrophil Count 3.5 X10^3/uL (2.0-7.7); Basophil# 0.02 X10^3/uL; Basophil% 0.4 % (0-1); Eosinophils% 6.6 % (0-5); Hematocrit 25.6 % (40-54); Hemoglobin 8.3 g/dL (13.0-16.5); Lymphocyte # 0.28 X10^3/ul (0.83-4.51); Lymphocyte % 6.1 % (19-41); Mean Corp Hgb Conc 32.4 g/dL (32-36); Mean Corpuscular Volume 98.8 fL (80-94); Mean Platelet Vol. 9.8 fl (6.2-12.0); Monocyte# 0.35 X10^3/uL; Monocyte% 7.6 % (0-10); NRBC Flagged by Analyzer 0 % (0-5); Neutrophil # 3.54 X10^3/uL (2.7-7.7); Neutrophil % 77.3 % (47-70); POSITIVE DIFFERENTIAL YES; Platelet Count 154 K/mm3 (150-450); RBC Distribution Width CV 17.1 % (11.6-14.6); RBC Distribution Width SD 61.5 fl (35.1-43.9); Red Blood Count 2.59 M/mm3 (4.6-6.2); White Blood Count 4.6 K/mm3 (4.4-11.0)
[2022-03-28 07:24] LABS: Differential Indicated SCAN CRITERIA MET
[2022-03-28 07:48] LABS: Anion Gap 5 (5-15); BUN 17 mg/dL (7-18); BUN/Creat Ratio 14.9 RATIO (10-20); Calcium,Total 8.9 mg/dL (8.5-10.1); Chloride 111 mmol/L (98-107); Creatinine, Serum 1.14 mg/dL (0.70-1.30); EST Glomerular Filtration Rate 68 mL/min (>60); Est Glom Filt Rate - Afr Amer 82 mL/min (>60); Estimated Creatinine Clearance 61.16 ml/min; Glucose 120 mg/dL (74-106); Potassium 3.9 mmol/L (3.5-5.1); Sodium Level 138 mmol/L (136-145)
[2022-03-28 07:54] LABS: Differential Comment SCANNED
[2022-03-28] MEDS: Multivitamins,Therapeutic Tablet 1 TABLET PO (08:37)
[2022-03-28 10:15] VITALS: PULSE 70; RESP 18; O2SAT 98
[2022-03-28] MEDS: Bisacodyl 5 MG Tablet 10 MG PO (11:20)
--- NOTE | 2022-03-28 11:59 | NURSING ---
PT KEEPS RUNNING TO THE BATHROOM SAYING HE HAS TO HAVE A BM. NOTHING COMES OUT,ONLY A SMEAR. ASK PT IF HE FEELS CONSTIPATED. PT STATED YES,GAVE PRN DULCOLAX. RN AWARE
[2022-03-28] MEDS: Iron Polysaccharide Complex 150 MG CAPSULE PO (14:35)
[2022-03-28 15:17] VITALS: BP 112/68; PULSE 70; RESP 17; TEMP 37.2; O2SAT 97
[2022-03-28] MEDS: Tamsulosin HCl 0.4 MG Capsule PO (18:01)
[2022-03-28 21:35] LABS: Bedside Glucose 193 mg/dL (74-106)
[2022-03-28] MEDS: Insulin Glargine-YFGN 100 UNIT/ML Pen 27 UNIT SC (21:38)
[2022-03-29] MEDS: LORazepam 0.5 MG Tablet PO ×2 (01:42→23:28)
[2022-03-29] MEDS: Loratadine 10 MG Tablet PO (05:52)
[2022-03-29] MEDS: Lidocaine 5% Patch 2 PATCH TOPICAL (05:52)
[2022-03-29] MEDS: Topiramate 25 MG Tablet PO ×2 (05:53→17:58)
[2022-03-29] MEDS: Iron Polysaccharide Complex 150 MG CAPSULE PO (05:53)
[2022-03-29] MEDS: Cyanocobalamin 500 MCG Tablet 250 MCG PO (05:53)
[2022-03-29] MEDS: Hydrocortisone 25 MG Suppository RC ×2 (05:53→17:58)
[2022-03-29] MEDS: BICALUTAMIDE 50 MG TABLET PO (05:53)
[2022-03-29] MEDS: Pantoprazole Sodium 20 MG Tablet PO (05:53)
[2022-03-29] MEDS: Nadolol 20 MG Tablet 5 MG PO (05:53)
[2022-03-29] MEDS: Menthol/Lanolin/Calamine/Znox 113 GM Tube 1 APPLIC TOPICAL ×2 (05:54→18:00)
[2022-03-29] MEDS: APIXABAN 5 MG TABLET PO ×2 (05:54→17:58)
[2022-03-29] MEDS: Senna/Docusate Sodium 1 Tablet 2 TABLET PO (06:08)
[2022-03-29] MEDS: traMADol 50 MG Tablet PO ×3 (06:08→22:24)
[2022-03-29] MEDS: tiZANidine HCl 2 MG Tablet 4 MG PO ×2 (06:21→17:59)
[2022-03-29 06:35] LABS: Bedside Glucose 110 mg/dL (74-106)
[2022-03-29] MEDS: Multivitamins,Therapeutic Tablet 1 TABLET PO (10:15)
--- NOTE | 2022-03-29 10:40 | PT ---
Spoke with staff and pt about walking pt to bathroom. Pt has been requesting to use BSC but needs to be encouraged to ambulate to bathroom. Pt agreeable after much encouragement to attempt ambulation into bathroom to help him improve overall gait and ambulation.
[2022-03-29 15:47] VITALS: BP 123/77; PULSE 71; RESP 16; TEMP 36.9; O2SAT 98
[2022-03-29] MEDS: Tamsulosin HCl 0.4 MG Capsule PO (17:58)
[2022-03-29 21:21] LABS: Bedside Glucose 146 mg/dL (74-106)
[2022-03-29] MEDS: Insulin Glargine-YFGN 100 UNIT/ML Pen 27 UNIT SC (22:25)
[2022-03-30 00:46] VITALS: RESP 18
[2022-03-30] MEDS: Pantoprazole Sodium 20 MG Tablet PO (04:15)
[2022-03-30] MEDS: APIXABAN 5 MG TABLET PO ×2 (04:16→16:50)
[2022-03-30] MEDS: tiZANidine HCl 2 MG Tablet 4 MG PO ×2 (04:16→16:50)
[2022-03-30] MEDS: Nadolol 20 MG Tablet 5 MG PO (04:17)
[2022-03-30] MEDS: Topiramate 25 MG Tablet PO ×2 (04:18→16:50)
[2022-03-30] MEDS: BICALUTAMIDE 50 MG TABLET PO (04:18)
[2022-03-30] MEDS: Lidocaine 5% Patch 2 PATCH TOPICAL (04:19)
[2022-03-30] MEDS: Loratadine 10 MG Tablet PO (04:19)
[2022-03-30] MEDS: Cyanocobalamin 500 MCG Tablet 250 MCG PO (04:20)
[2022-03-30] MEDS: Menthol/Lanolin/Calamine/Znox 113 GM Tube 1 APPLIC TOPICAL ×2 (04:21→16:50)
[2022-03-30] MEDS: Iron Polysaccharide Complex 150 MG CAPSULE PO (04:21)
[2022-03-30] MEDS: Hydrocortisone 25 MG Suppository RC ×2 (04:39→16:50)
[2022-03-30 05:57] LABS: Hematocrit 24.8 % (40-54); Hemoglobin 7.7 g/dL (13.0-16.5)
[2022-03-30 06:26] LABS: Bedside Glucose 113 mg/dL (74-106)
[2022-03-30] MEDS: Multivitamins,Therapeutic Tablet 1 TABLET PO (07:57)
--- NOTE | 2022-03-30 08:30 | NURSING ---
Addendum entered by Yamileth Pollock 03/30/22 10:42: Infusion center updated that pt is in contact precautions for ESBL in urine Original Note: Hgb 7.7, N.O. 2 Units PRBCs with 20mg IV lasix between units, Type and cross, and recheck H/H 24 hours after transfusion. Risks and benefits explained, informed consent obtained and POA updated. Orders and consent faxed to infusion center and this nurse called and updated them on N.O. and need for blood. Infusion center has pt scheduled for 8am tomorrow 03/31/22. Dietary updated on need for early breakfast tray.
[2022-03-30] MEDS: traMADol 50 MG Tablet PO ×2 (10:04→16:40)
--- NOTE | 2022-03-30 10:41 | NURSING ---
Care provided in room d/t contact precautions
--- NOTE | 2022-03-30 11:19 | NURSING ---
Addendum entered by Yamileth Pollock 03/30/22 13:39: This nurse called office back and scheduled f/u appointment for May 04 at 1315, Bob updated and she stated she would transport. Still no orders for MRI at this time. Original Note: This nurse contacted [facility] office to schedule f/u appointment and administrative receptionist informed this nurse that the physician mentioned wanting an MRI. This nurse offered to give fax number if they would like to fax us the order to obtain here. She stated that she does not see an order just that it was mentioned and transferred this nurse to the clinical desk for further investigation. No answer at clinical desk, voicemail left requesting return phone call to inquire about MRI and schedule a f/u appointment
[2022-03-30] MEDS: 0.9% Saline Lock 10 ML Syringe IV ×2 (13:23→21:04)
[2022-03-30 16:00] VITALS: BP 139/64; PULSE 70; RESP 16; TEMP 36.6; O2SAT 98
[2022-03-30] MEDS: Tamsulosin HCl 0.4 MG Capsule PO (16:48)
[2022-03-30 21:51] LABS: Bedside Glucose 153 mg/dL (74-106)
[2022-03-30] MEDS: Insulin Glargine-YFGN 100 UNIT/ML Pen 27 UNIT SC (22:03)
[2022-03-31] MEDS: LORazepam 0.5 MG Tablet PO ×2 (01:26→21:48)
[2022-03-31] MEDS: traMADol 50 MG Tablet PO ×3 (01:26→21:48)
[2022-03-31] MEDS: Pantoprazole Sodium 20 MG Tablet PO (05:40)
[2022-03-31] MEDS: Loratadine 10 MG Tablet PO (05:40)
[2022-03-31] MEDS: Iron Polysaccharide Complex 150 MG CAPSULE PO (05:40)
[2022-03-31] MEDS: Cyanocobalamin 500 MCG Tablet 250 MCG PO (05:40)
[2022-03-31] MEDS: Topiramate 25 MG Tablet PO ×2 (05:40→17:29)
[2022-03-31] MEDS: BICALUTAMIDE 50 MG TABLET PO (05:41)
[2022-03-31] MEDS: tiZANidine HCl 2 MG Tablet 4 MG PO ×2 (05:41→17:29)
[2022-03-31] MEDS: Nadolol 20 MG Tablet 5 MG PO (05:42)
[2022-03-31] MEDS: APIXABAN 5 MG TABLET PO ×2 (05:43→17:29)
[2022-03-31] MEDS: Hydrocortisone 25 MG Suppository RC ×2 (05:43→17:43)
[2022-03-31] MEDS: Menthol/Lanolin/Calamine/Znox 113 GM Tube 1 APPLIC TOPICAL ×2 (05:44→17:29)
[2022-03-31] MEDS: Lidocaine 5% Patch 2 PATCH TOPICAL (05:44)
[2022-03-31 06:30] LABS: Bedside Glucose 117 mg/dL (74-106)
[2022-03-31] MEDS: Multivitamins,Therapeutic Tablet 1 TABLET PO (07:55)
--- NOTE | 2022-03-31 08:06 | NURSING ---
PT LEFT FLOOR AT 0805 AM FOR BLOOD TRANSFUSION. THIS NURSE CALLED INFUSION CENTER TO SEE IF PT COULD COME WHILE STILL GETTING HIS LAST DOSE OF [facility] STILL RUNNING FOR NEXT 2 HOURS. NURSE STATED IT WOULD BE OK AND THEY WOULD START A NEW LINE.
--- NOTE | 2022-03-31 11:16 | NURSING ---
Addendum entered by Radha Menjivar 03/31/22 11:34: Called [facility] in [place] Spoke with Kera and Scheduled MRI for 05/05/22. Called [facility] to reschedule appt d/t appt being before MRI is completed. Rescheduled for 05/11/22. Will updated POA. Original Note: [facility] called and stated that pre-cert was completed for this pt to have a MRI done at a [facility]. Phone number [phone] to set up appt.
--- NOTE | 2022-03-31 13:16 | NURSING ---
PT RETURNED FROM BLOOD TRANSFUSION BY WHEEL CHAIR AT 1300 WITH ELECTRODE CLEANER EUN. UPDATED EUN ON PT AND APPOINTMENTS.
--- NOTE | 2022-03-31 15:04 | CASEMGMT ---
Social Work IDT met with patient and SO, Bob, for care plan meeting. Discussed patient's progress in therapy and recommendations for discharge. Therapists expressed concern for lack of functional gait pattern while walking, as pt shuffles. SO explains pt was walking like that prior; not as slow, but did not take big steps. Therapy recommends pt receive close to 24/7 care at home; pt remains incontinent and needs hands-on assistance for personal care. SO explains she will be visiting 3x/wk for quite some time, and providing showers. She also [facility] when SO is not in town. Pt will continue to use his LifeAlert with fall detection, and SO is setting up MOW 5x/wk. SO has purchased all DME needed, and requesting [facility] - agreeable to [facility]. IDT agreeable to having all of these resources in place for pt to DC home. Discussed timeframe of 2 wks. All parties agreeable to DC 04/03. Referral made to [facility] PT/OT/ST/SN/SIMMS/SW. SW to ensure smooth transition home and no other resources needed. Plan: DC home with assistance 04/03, [facility] PT/OT/ST/SN/SIMMS/SW Janeen Kline, MONIQUE DHALIWALW
[2022-03-31 15:07] VITALS: BP 129/76; PULSE 70; RESP 16; TEMP 36; O2SAT 97
[2022-03-31 15:29] LABS: Bacteria 0 SEEN /hpf (None Seen); Mucous, Urine 0 SEEN /hpf (<or=2+); Squamous Epithelial Cells - UA 0 SEEN /hpf (0-5)
[2022-03-31 15:37] LABS: Color, Urine Yellow (Yellow); Glucose, Dipstick Normal (Normal); Ketone-Dipstick Negative (Negative); Leukocyte Esterase-Dipstick Negative /ul (Negative); Nitrite-Dipstick Negative (Negative); Occult Blood-Urine 25 /ul (Negative); Protein-Dipstick 100 mg/dl (Negative); Specific Gravity, Urine 1.015 (1.002-1.030); Urine Bilirubin Dipstick Negative (Negative); Urine Clarity Clear (Clear); Urine Urobilinogen Normal (Normal)
[2022-03-31 15:54] LABS: Red Blood Cells-Urine 0-5 SEEN /hpf (0-5); White Blood Cells 0-5 SEEN /hpf (0-5)
--- NOTE | 2022-03-31 16:34 | NURSING ---
OK PER RN TO REMOVE RIGHT WRIST SALINE LOCK DUE[ DATED 03/26/22] TO GETTING A NEW SALINE LOCK IN LEFT WRIST FOR BLOOD TRANSFUSION.
[2022-03-31] MEDS: Tamsulosin HCl 0.4 MG Capsule PO (17:29)
[2022-03-31 21:45] VITALS: BP 114/66; PULSE 71; RESP 16; TEMP 36.2; O2SAT 97
[2022-03-31 21:46] LABS: Bedside Glucose 177 mg/dL (74-106)
[2022-03-31] MEDS: Insulin Glargine-YFGN 100 UNIT/ML Pen 27 UNIT SC (21:49)
[2022-04-01] MEDS: Loratadine 10 MG Tablet PO (04:59)
[2022-04-01] MEDS: BICALUTAMIDE 50 MG TABLET PO (04:59)
[2022-04-01] MEDS: Pantoprazole Sodium 20 MG Tablet PO (04:59)
[2022-04-01] MEDS: tiZANidine HCl 2 MG Tablet 4 MG PO ×2 (04:59→18:26)
[2022-04-01] MEDS: Nadolol 20 MG Tablet 5 MG PO (04:59)
[2022-04-01] MEDS: Cyanocobalamin 500 MCG Tablet 250 MCG PO (05:00)
[2022-04-01] MEDS: APIXABAN 5 MG TABLET PO ×2 (05:00→18:25)
[2022-04-01] MEDS: Iron Polysaccharide Complex 150 MG CAPSULE PO (05:00)
[2022-04-01] MEDS: Topiramate 25 MG Tablet PO ×2 (05:01→18:26)
[2022-04-01] MEDS: Menthol/Lanolin/Calamine/Znox 113 GM Tube 1 APPLIC TOPICAL ×2 (05:04→21:44)
[2022-04-01] MEDS: traMADol 50 MG Tablet PO ×3 (05:08→21:42)
[2022-04-01 06:30] LABS: Bedside Glucose 119 mg/dL (74-106)
[2022-04-01] MEDS: Multivitamins,Therapeutic Tablet 1 TABLET PO (08:45)
[2022-04-01] MEDS: 0.9% Saline Lock 10 ML Syringe IV (08:46)
--- NOTE | 2022-04-01 09:24 | NURSING ---
CALLED AND LEFT MESSAGE FOR JORGE ROSS AND UPDATED HIM ON THE PT PER HIS REQUEST ON HOW PT WAS DOING AFTER GIVING THE SUPPOSITORY HE ORDERED FOR PT FOR 7 DAYS.
--- NOTE | 2022-04-01 10:23 | NURSING ---
Radiation Oncologist; Onel Sal DO called into TCU and reported that if no more bloody stools to Discontinue the suppositories. Spoke with patient nurse; Noted that there has been no more Rectal bleeding noted. Suppositories to be Discontinued.
[2022-04-01 11:14] LABS: Hematocrit 32.8 % (40-54); Hemoglobin 10.2 g/dL (13.0-16.5)
[2022-04-01 11:40] VITALS: PULSE 86; RESP 18; O2SAT 96
[2022-04-01 14:37] VITALS: BP 132/75; PULSE 63; RESP 20; TEMP 37.5; O2SAT 97
--- NOTE | 2022-04-01 14:47 | CASEMGMT ---
Addendum entered by Janeen Kline 04/06/22 12:06: ST DC this date. Updated [facility] order without [facility] Original Note: Social Work IDT met with patient and SO, Bob, for care plan meeting. Discussed patient's progress in therapy and recommendations for discharge. Therapists expressed concern for lack of functional gait pattern while walking, as pt shuffles. SO explains pt was walking like that prior; not as slow, but did not take big steps. Therapy recommends pt receive close to 24/7 care at home; pt remains incontinent and needs hands-on assistance for personal care. SO explains she will be visiting 3x/wk for quite some time, and providing showers. She also has hired [facility] FLORIST HEL[employer] to assist pt when SO is not in town. Pt will continue to use his LifeAlert with fall detection, and SO is setting up MOW 5x/wk. SO has purchased all DME needed, and requesting HHC - agreeable to [facility]. IDT agreeable to having all of these resources in place for pt to DC home. Discussed timeframe of 2 wks. All parties agreeable to DC 04/14. Referral made to [facility] PT/OT/ST/SN/SIMMS/SW. SW to ensure smooth transition home and no other resources needed. Plan: DC home with assistance 04/14, [facility] PT/OT/ST/SN/SIMMS/SW Janeen Kline, GOVERNMENT INSTRUCTOR SEISMOGRAPH COMPUTER
--- NOTE | 2022-04-01 14:53 | NURSING ---
ALL CARE GIVEN IN ROOM DUE TO PT IN PRECAUTIONS FOR ESBL IN URINE.
[2022-04-01] MEDS: Tamsulosin HCl 0.4 MG Capsule PO (18:25)
--- NOTE | 2022-04-01 18:53 | DS.PCM_ITS ---
Providers Date of Admission: 02/19/22 Primary Care Physician: Dr. Pratibha Canaels MD Consultations 03/11/22 07:50 Consult: Pain Management Routine Consulting Provider: Shamar Mayfield Reason for Consult: Right hip pain. EMERGENT Consult: No MD Notified: Yes Date Notified: 03/11/22 Time Notified: 13:47 Method of Notification: Verbal Reason For Visit: RT SHIVA ARTHOPLASTI Diagnosis Discharge Diagnosis (1) Debility: Status: Acute Code(s): R53.81 - Other malaise (2) Closed right hip fracture: Status: Acute Code(s): S72.001A - Fracture of unspecified part of neck of right femur, initial encounter for closed fracture (3) Prostate cancer: Status: Acute Code(s): C61 - Malignant neoplasm of prostate (4) Stroke: Status: Acute Code(s): I63.9 - Cerebral infarction, unspecified (5) Atrial fibrillation: Status: Acute Code(s): I48.91 - Unspecified atrial fibrillation (6) Chronic kidney disease, stage 3a: Status: Chronic Code(s): N18.31 - Chronic kidney disease, stage 3a (7) Cirrhosis of liver: Status: Acute Code(s): K74.60 - Unspecified cirrhosis of liver (8) FARIAS (nonalcoholic steatohepatitis): Status: Acute Code(s): K75.81 - Nonalcoholic steatohepatitis (FARIAS) (9) Chronic systolic congestive heart failure: Status: Chronic Code(s): I50.22 - Chronic systolic (congestive) heart failure (10) Asthma: Status: Acute Code(s): J45.909 - Unspecified asthma, uncomplicated (11) Diabetes mellitus: Status: Acute Code(s): E11.9 - Type 2 diabetes mellitus without complications (12) Gastroesophageal reflux disease: Status: Acute Code(s): K21.9 - Gastro-esophageal reflux disease without esophagitis (13) Seizure disorder: Status: Acute Code(s): G40.909 - Epilepsy, unspecified, not intractable, without status epilepticus (14) Benign prostate hyperplasia: Status: Acute Code(s): N40.0 - Benign prostatic hyperplasia without lower urinary tract symptoms Medications at Discharge Home Medications insulin glargine 27 unit SQ QHS 10/30/18 omeprazole 20 mg PO BID 10/30/18 topiramate 25 mg PO BID 10/30/18 tamsulosin 0.4 mg capsule 0.4 mg PO QHS cap 05/08/21 bicalutamide 50 mg tablet 50 mg PO DAILY 12/10/21 loratadine 10 mg capsule 10 mg PO DAILY 12/10/21 Eliquis 5 mg PO BID 02/19/22 cyanocobalamin (vitamin B-12) [Vitamin B-12] 250 mcg PO DAILY 02/19/22 multivitamin 1 tab PO DAILY 02/19/22 lidocaine 2 patch TOPICAL DAILY 30 Days #60 ea 04/01/22 lorazepam 0.5 mg PO QHS PRN PRN 7 Days #7 tab 04/01/22 nadolol 5 mg PO DAILY 30 Days #8 tab 04/01/22 polysaccharide iron complex [Ferrex 150] 150 mg PO DAILY 30 Days #30 cap 04/01/22 tizanidine 4 mg PO BID 30 Days #120 tab 04/01/22 tramadol 50 mg PO Q6H PRN PRN 7 Days #28 tab 04/01/22 Hospital Course Operations - (Right hip hemiarthroplasty.) Procedures None Summary of Care Provided Minutes Spent on Discharge: 35 Hospital Course: 71 year old male with below past medical history hospitalized for right hip fracture, underwent right hip hemiarthroplasty 02/13/2022, admitted to TCU with debility, here for rehabilitation, strengthening, prior to discharge home alone. 03/17/2022 Finished radiation therapy per Dr. Sal for prostate cancer metastatic to bone. 03/24/2022 Urine culture grew ESBL E. Coli treated with 7 days of IV Meropenem. Discharge home alone with assistance 04/14/2022, [facility] PT/OT/ST/SN/SIMMS/SW. Physical Exam Const alert General Appearance: cooperative HEENT normocephalic Eyes PERRL and EOMs intact bilaterally Neck supple, no JVD and no carotid bruits Resp normal respiratory effort, normal air movement and clear to auscultation bilaterally Cardio regular rate and regular rhythm GI normal to inspection, nondistended, normoactive bowel sounds, non-tender and non-distended Extremity normal capillary refill General Extremity: Negative for edema Skin no rashes or lesions noted General Skin Exam: no breakdown Psych affect normal Appearance: appropriate Weight / BMI Weight Weight: 74.928 kg Body Mass Index (BMI) 27.2 ABG / Lab / Microbiology Data Result Diagrams: 04/01/22 11:07 03/28/22 07:14 Laboratory: Laboratory Results - last 24 hr 03/31/22 21:36: POC Glucose 177 H 04/01/22 06:21: POC Glucose 119 H 04/01/22 11:07: Hgb 10.2 L, Hct 32.8 L Microbiology: Microbiology 03/31/22 15:15 Urine Catheter - Catheter Urine Culture - Preliminary Culture exhibits no growth. 03/29/22 11:28 Nasal Secretion SARS-CoV-2 Antigen (Rapid) - Final 03/24/22 09:25 Urine Catheter - Catheter Urine Culture - Final Presumptive E. coli 03/26/22 14:32 Nasal Secretion SARS-CoV-2 Antigen (Rapid) - Final 03/01/22 18:51 Urine Catheter - [place] Urine Culture - Final Presumptive E. coli 02/26/22 06:59 Nasal Secretion SARS-CoV-2 Antigen (Rapid) - Final 02/19/22 13:10 Nasal Secretion SARS-CoV-2 Antigen (Rapid) - Final D/C Instructions Discharge Diet: No restrictions Discharge Activity: Return to Normal Activity, May Shower and Use Walker Weight Bearing Status: Weight bearing as tolerated Call your doctor if you observe: Fever of 101 or Higher, Inability to urinate, Inability to have a bowel movement, Shortness of breath, Dizziness, Fainting spells, Swelling in the ankles, Chest pain and Uncontrolled pain Additional Instructions: Discharge home alone with assistance 04/14/2022, [facility] PT/OT/ST/SN/SIMMS/SW. Please Follow Up With: [facility] Meaningful Use Info Meaningful Use Diagnoses (Choose all that apply): None applicable Discharge Plan Admission Admit Date/Time: 02/19/22 11:05 Primary Reason for Your Visit: Debility. Attending Provider: Kaden Johnson Chi Primary Care Provider: Pratibha Canales Consulting Providers: Shamar Mayfield Instructions Additional Instructions / Restrictions: Discharge home alone with assistance 04/14/2022, [facility] PT/OT/ST/SN/SIMMS/SW. Discharge Orders/Prescriptions Prescriptions: New nadolol 20 mg Tablet 5 mg PO DAILY 30 Days Qty: 8 RF: 0 tizanidine 2 mg Tablet 4 mg PO BID 30 Days Qty: 120 RF: 0 polysaccharide iron complex [Ferrex 150] 150 mg iron Capsule 150 mg PO DAILY 30 Days Qty: 30 RF: 0 tramadol 50 mg Tablet 50 mg PO Q6H PRN PRN (Reason: Pain Score 1-10) 7 Days Qty: 28 RF: 0 lorazepam 0.5 mg Tablet 0.5 mg PO QHS PRN PRN (Reason: Anxiety/Restlessness/Sleep) 7 Days Qty: 7 RF: 0 lidocaine 5 % Adhesive Patch,Medicated 2 patch topical DAILY 30 Days Qty: 60 RF: 0 Continued tamsulosin 0.4 mg capsule 0.4 mg PO QHS RF: 0 bicalutamide [Casodex] 50 mg tablet 50 mg PO DAILY RF: 0 loratadine 10 mg capsule 10 mg PO DAILY RF: 0 topiramate 25 tablet 25 mg PO BID RF: 0 omeprazole 20 capsule,delayed release(DR/EC) 20 mg PO BID RF: 0 insulin glargine 100 UNIT/ML insulin pen 27 unit SQ QHS RF: 0 multivitamin Tablet 1 tab PO DAILY RF: 0 cyanocobalamin (vitamin B-12) [Vitamin B-12] 250 mcg Tablet 250 mcg PO DAILY RF: 0 Eliquis 5 mg tablet 5 mg PO BID RF: 0 Discontinued lisinopril 40 mg tablet 40 mg PO DAILY RF: 0 spironolactone 25 mg Tablet 25 mg PO DAILY RF: 0 nadolol 20 mg tablet 10 mg PO DAILY RF: 0 buprenorphine 5 mcg/hour Patch Weekly 1 patch TRANSDERMAL Q7D RF: 0 bumetanide 1 mg tablet 1 mg PO DAILY RF: 0 Referrals / Follow Up: Erik Saravia MD [STAFF PHYSICIAN] - (f/u with Dr. Saravia after discharge from [facility]) Pratibha Canales MD [Primary Care Provider] - Kaden Johnson Chi, MD [COURTESY STAFF PHYSICIAN] - 03/04/22 2:40 pm Disposition Disposition (needs filled in before D/C Order can be placed): Home Health Service
[2022-04-01 21:26] LABS: Bedside Glucose 214 mg/dL (74-106)
[2022-04-01] MEDS: LORazepam 0.5 MG Tablet PO (21:42)
[2022-04-01] MEDS: Insulin Glargine-YFGN 100 UNIT/ML Pen 27 UNIT SC (21:43)
--- NOTE | 2022-04-02 01:04 | PCA ---
This INSURANCE CLAIMS PROCESSOR went to assist patient to the bathroom and patient was visibly upset. INSURANCE CLAIMS PROCESSOR asked patient what was wrong and they responded with You better hurry or im gonna pee in your hand. INSURANCE CLAIMS PROCESSOR went to help patient up and patient stated I dont want you to help me any more. Find someone else.
--- NOTE | 2022-04-02 01:08 | PCA ---
patient constantly pushing call light saying he needs to use bathroom and when he is on the toilet or bedside commode he doesn't go. patient also thinks everytime he rings we should drop everything and gp to his room
[2022-04-02] MEDS: tiZANidine HCl 2 MG Tablet 4 MG PO ×2 (06:21→17:52)
[2022-04-02] MEDS: traMADol 50 MG Tablet PO ×2 (06:21→17:52)
[2022-04-02] MEDS: APIXABAN 5 MG TABLET PO ×2 (06:21→17:52)
[2022-04-02] MEDS: BICALUTAMIDE 50 MG TABLET PO (06:22)
[2022-04-02] MEDS: Pantoprazole Sodium 20 MG Tablet PO (06:22)
[2022-04-02] MEDS: Iron Polysaccharide Complex 150 MG CAPSULE PO (06:22)
[2022-04-02] MEDS: Nadolol 20 MG Tablet 5 MG PO (06:22)
[2022-04-02] MEDS: Topiramate 25 MG Tablet PO ×2 (06:22→17:51)
[2022-04-02] MEDS: Loratadine 10 MG Tablet PO (06:22)
[2022-04-02] MEDS: Cyanocobalamin 500 MCG Tablet 250 MCG PO (06:23)
[2022-04-02] MEDS: Menthol/Lanolin/Calamine/Znox 113 GM Tube 1 APPLIC TOPICAL ×2 (06:23→17:56)
[2022-04-02 06:32] VITALS: BP 117/75; PULSE 71; RESP 17; TEMP 36.3; O2SAT 95
[2022-04-02 06:35] LABS: Bedside Glucose 87 mg/dL (74-106)
[2022-04-02] MEDS: Multivitamins,Therapeutic Tablet 1 TABLET PO (08:25)
[2022-04-02 10:42] VITALS: PULSE 70; RESP 20; O2SAT 98
[2022-04-02 11:25] VITALS: TEMP 36.6
[2022-04-02 11:41] VITALS: BP 114/70
[2022-04-02] MEDS: Tamsulosin HCl 0.4 MG Capsule PO (17:52)
[2022-04-02 21:46] LABS: Bedside Glucose 192 mg/dL (74-106)
[2022-04-02] MEDS: Insulin Glargine-YFGN 100 UNIT/ML Pen 27 UNIT SC (21:58)
[2022-04-02] MEDS: LORazepam 0.5 MG Tablet PO (23:22)
[2022-04-03] MEDS: traMADol 50 MG Tablet PO ×2 (03:50→21:49)
[2022-04-03] MEDS: Pantoprazole Sodium 20 MG Tablet PO (05:16)
[2022-04-03] MEDS: Loratadine 10 MG Tablet PO (05:16)
[2022-04-03] MEDS: Nadolol 20 MG Tablet 5 MG PO (05:16)
[2022-04-03] MEDS: tiZANidine HCl 2 MG Tablet 4 MG PO ×2 (05:16→17:08)
[2022-04-03] MEDS: APIXABAN 5 MG TABLET PO ×2 (05:17→17:08)
[2022-04-03] MEDS: Iron Polysaccharide Complex 150 MG CAPSULE PO (05:17)
[2022-04-03] MEDS: BICALUTAMIDE 50 MG TABLET PO (05:17)
[2022-04-03] MEDS: Cyanocobalamin 500 MCG Tablet 250 MCG PO (05:17)
[2022-04-03] MEDS: Topiramate 25 MG Tablet PO ×2 (05:17→17:08)
[2022-04-03] MEDS: Menthol/Lanolin/Calamine/Znox 113 GM Tube 1 APPLIC TOPICAL ×2 (05:17→17:10)
[2022-04-03] MEDS: Lidocaine 5% Patch 2 PATCH TOPICAL (05:18)
[2022-04-03 06:26] LABS: Bedside Glucose 127 mg/dL (74-106)
[2022-04-03] MEDS: Multivitamins,Therapeutic Tablet 1 TABLET PO (08:19)
--- NOTE | 2022-04-03 16:54 | PCM.PN.RX ---
Progress Note - Pharmacy Subjective: [] TCU May Pharmacy progress note Objective: Allergies acetaminophen Adverse Reaction (Verified 03/31/22 08:36) Other oxycodone Adverse Reaction (Verified 03/31/22 08:36) hallucinations Current Medications Generic Name Dose Route Start Last Admin Trade Name Freq PRN Reason Stop Dose Admin Apixaban 5 mg 02/20/22 06:00 04/03/22 05:17 Apixaban 5 Mg Tablet PO 5 mg BID KATIE Administration Bicalutamide 50 mg 02/20/22 06:00 04/03/22 05:17 Bicalutamide 50 Mg Tablet PO 50 mg DAILY KATIE Administration Bisacodyl 10 mg 02/19/22 14:42 03/28/22 11:20 Bisacodyl 5 Mg Tablet PO 10 mg DAILY PRN PRN Administration Constipation Calamine/Phenol 1 applic 03/04/22 18:00 04/03/22 05:17 Menthol/Lanolin/Calamine/Znox 113 Gm Tube TOPICAL 1 applic BID KATIE Administration Protocol Cyanocobalamin 250 mcg 02/20/22 06:00 04/03/22 05:17 Cyanocobalamin 500 Mcg Tablet PO 250 mcg DAILY KATIE Administration Sodium Chloride 250 mls @ 15 mls/hr 03/24/22 20:00 03/29/22 23:22 IV Infused .[id number] PRN Infusion SALINE FLUSH Insulin Glargine 27 unit 02/19/22 22:00 04/02/22 21:58 Insulin Glargine-Yfgn 100 Unit/Ml Pen SC 27 unit QHS KATIE Administration Lidocaine 2 patch 03/12/22 06:00 04/03/22 05:18 Lidocaine 5% Patch TOPICAL 2 patch DAILY KATIE Administration Protocol Loratadine 10 mg 02/20/22 06:00 04/03/22 05:16 Loratadine 10 Mg Tablet PO 10 mg DAILY KATIE Administration Lorazepam 0.5 mg 03/24/22 07:48 04/02/22 23:22 Lorazepam 0.5 Mg Tablet PO 0.5 mg QHS PRN PRN Administration ANXIETY/RESTLESSNESS/SLEEP Multivitamins 1 tablet 02/20/22 08:00 04/03/22 08:19 Multivitamins,Therapeutic Tablet PO 1 tablet DAILY@0800 KATIE Administration Nadolol 5 mg 03/11/22 06:00 04/03/22 05:16 Nadolol 20 Mg Tablet PO 5 mg DAILY KATIE Administration Pantoprazole Sodium 20 mg 02/20/22 06:00 04/03/22 05:16 Pantoprazole Sodium 20 Mg Tablet PO 20 mg DAILY KATIE Administration Polyethylene Glycol 17 gm 03/24/22 07:49 Polyethylene Glycol 3350 17 Gm Packet PO QHS PRN Constipation Polysaccharide Iron Complex 150 mg 03/28/22 13:00 04/03/22 05:17 Iron Polysaccharide Complex 150 Mg Capsule PO 150 mg DAILY KATIE Administration Senna/Docusate Sodium 2 tablet 03/24/22 07:49 03/29/22 06:08 Senna/Docusate Sodium 1 Tablet PO 1 tablet QHS PRN Administration Constipation Sodium Chloride 10 - 40 ml 03/02/22 11:15 04/01/22 08:46 0.9% Saline Lock 10 Ml Syringe IV 10 ml UD PRN Administration SALINE FLUSH Tamsulosin HCl 0.4 mg 02/19/22 17:30 04/02/22 17:52 Tamsulosin Hcl 0.4 Mg Capsule PO 0.4 mg DAILY@1730 KATIE Administration Tizanidine HCl 4 mg 03/11/22 19:25 04/03/22 05:16 Tizanidine Hcl 2 Mg Tablet PO 4 mg BID KATIE Administration Topiramate 25 mg 02/19/22 18:00 04/03/22 05:17 Topiramate 25 Mg Tablet PO 25 mg BID KATIE Administration Tramadol HCl 50 mg 03/17/22 16:21 04/03/22 03:50 Tramadol 50 Mg Tablet PO 50 mg Q6H PRN PRN Administration Pain Score 1-10 Problem List (Last Reviewed 03/17/22 @ 11:10 by Lucina Herndon) Benign prostate hyperplasia (Acute) Seizure disorder (Acute) Gastroesophageal reflux disease (Acute) Diabetes mellitus (Acute) Asthma (Acute) Chronic systolic congestive heart failure (Chronic) FARIAS (nonalcoholic steatohepatitis) (Acute) Cirrhosis of liver (Acute) Chronic kidney disease, stage 3a (Chronic) Atrial fibrillation (Acute) Stroke (Acute) Prostate cancer (Acute) Closed right hip fracture (Acute) Debility (Acute) Vital Signs Temp Pulse Resp BP Pulse Ox 97.8 F 70 20 H 114/70 98 04/02/22 11:25 04/02/22 10:42 04/02/22 10:42 04/02/22 11:41 04/02/22 10:42 Oxygen Flow Rate (L/min) 99 Oxygen Delivery Method Room Air Weight: 74.928 kg Body Mass Index (BMI) 27.2 Sodium 138 mmol/L (136-145) 03/28/22 07:14 Potassium 3.9 mmol/L (3.5-5.1) 03/28/22 07:14 Chloride 111 mmol/L (98-107) H 03/28/22 07:14 Carbon Dioxide 22.0 mmol/L (21.0-32.0) 03/28/22 07:14 Anion Gap 5 (5-15) 03/28/22 07:14 BUN 17 mg/dL (7-18) 03/28/22 07:14 Creatinine 1.14 mg/dL (0.70-1.30) 03/28/22 07:14 Est GFR (MDRD) Af Amer 82 mL/min (>60) 03/28/22 07:14 Est GFR (MDRD) Non-Af 68 mL/min (>60) 03/28/22 07:14 BUN/Creatinine Ratio 14.9 RATIO (10-20) 03/28/22 07:14 Glucose 120 mg/dL (74-106) H 03/28/22 07:14 Assessment/Plan: 1. Pain: Tramadol 50mg PO Q6H PRN pain (1-10), Lidocaine Patch 2 patches to right hip. Please continue to monitor for increased pain, PRN usage, constipation and respiratory depression. 2. Atrial fibrillation/CHF: nadolol 20mg PO daily, apixaban 5mg PO BID, lisinopril 40mg PO daily, spironolactone 25mg PO daily and bumetanide 1mg PO daily. Please continue to monitor BP (last 120/76), HR (last 70), potassium (last 3.9mmol/L), sodium (last 138mmol/L), S/S of bleeding/stroke and hemoglobin (last 10.2 g/dL). 3. Prostate cancer: bicalutamide 50mg PO daily. Please continue to monitor for chest pain, dizziness, pelvic/bone pain and infection. 4. Diabetes mellitus II: insulin glargine 27units SC QHS. Please continue to monitor glucose (last 120mg/dL) and S/S of hypo/hyperglycemia. 5. GERD: pantoprazole 20mg PO daily. Please continue to monitor for S/S of GERD and diarrhea. 6. BPH: tamsulosin 0,4mg PO daily@1730. Please continue to monitor for increased urine flow and BP. 7. Seizure disorder: topiramate 25mg PO BID. Please continue to monitor for S/S of seizure, dizziness and paresthesias. 8. Allergic rhinitis: loratadine 10mg PO daily. Please continue to monitor for S/S of allergies. 9. Nutrition/nutrition: cyanocobalamin 250mcg PO daily and multivitamin 1T PO DAILYCM. Please consider ordering a vitamin B12 level (resident does not have one in chart) if clinically appropriate. Thanks. 10. Muscle Pain/Relaxation: Tizanidine 4mg po bid. Please continue to monitor for respiratory depression. Pt is on currently on PRN Tramadol, and PRN Lorazepam, as well as Tizanidine. Psychotropic Medications: Lorazepam 0.5mg po qhs prn for anxiety/sleep/restlessness. Please continue to monitor prn usage and for signs/symptoms of respiratory depression (pt is on Tramadol prn, Tizanidine scheduled, and now Lorazepam prn). Unnecessary Medications: Bowel Regimen: Bisacodyl 10mg po daily prn for constipation, Miralax 17gm po qhs prn for constipation, Senna/Docusate 2 tablets po qhs prn for constipation. Please continue to monitor prn usage and for signs/symptoms of constipation/diarrhea. Date of Note:: 04/03/22
[2022-04-03 16:57] VITALS: BP 120/76; PULSE 70; RESP 16; TEMP 36.1; O2SAT 95
[2022-04-03] MEDS: Senna/Docusate Sodium 1 Tablet 2 TABLET PO (17:08)
[2022-04-03] MEDS: Tamsulosin HCl 0.4 MG Capsule PO (17:08)
[2022-04-03 21:26] LABS: Bedside Glucose 376 mg/dL (74-106)
[2022-04-03] MEDS: Insulin Glargine-YFGN 100 UNIT/ML Pen 27 UNIT SC (21:47)
[2022-04-03] MEDS: LORazepam 0.5 MG Tablet PO (21:48)
--- NOTE | 2022-04-03 21:55 | NURSING ---
Paged Dr. Larson w/ return call within minutes. Updated on blood sugar of 376. Unsure types of food(s) consumed which may have led to an elevated level. New order received and read back for Humulin R 5 units x 1 dose. Upon entering order in the system, Humalog is noted to be the therapeutic interchange. Phone call to pharmacy and spoke w/ pharmacistGoldy, to entry of the correct medication. Medication manifest/order organizer print orders reflected on
[2022-04-03] MEDS: Insulin Lispro 100 UNIT/ML INSULN.PEN SC (22:26)
--- NOTE | 2022-04-04 00:05 | NURSING ---
Pt HS blood glucose was 376. Pt asymptomatic. RN notified Dr. Larson and new order for STAT Humalog 5 units SC obtained and administered. Pt states he had nepali toast with syrup for breakfast but his eating habits for the day have otherwise not changed.
[2022-04-04 04:09] VITALS: BP 110/64; PULSE 68
[2022-04-04] MEDS: tiZANidine HCl 2 MG Tablet 4 MG PO ×2 (04:20→17:27)
[2022-04-04] MEDS: Nadolol 20 MG Tablet 5 MG PO (04:21)
[2022-04-04] MEDS: Loratadine 10 MG Tablet PO (04:21)
[2022-04-04] MEDS: Pantoprazole Sodium 20 MG Tablet PO (04:21)
[2022-04-04] MEDS: Topiramate 25 MG Tablet PO ×2 (04:22→17:27)
[2022-04-04] MEDS: APIXABAN 5 MG TABLET PO ×2 (04:22→17:26)
[2022-04-04] MEDS: Cyanocobalamin 500 MCG Tablet 250 MCG PO (04:22)
[2022-04-04] MEDS: Iron Polysaccharide Complex 150 MG CAPSULE PO (04:22)
[2022-04-04] MEDS: BICALUTAMIDE 50 MG TABLET PO (04:22)
[2022-04-04] MEDS: Lidocaine 5% Patch 2 PATCH TOPICAL (04:23)
[2022-04-04] MEDS: Menthol/Lanolin/Calamine/Znox 113 GM Tube 1 APPLIC TOPICAL ×2 (04:27→17:27)
[2022-04-04 05:14] LABS: Absolute Lymphocyte Count 0.27 X10^3/uL (0.83-4.51); Absolute Neutrophil Count 6.1 X10^3/uL (2.0-7.7); Basophil# 0.03 X10^3/uL; Basophil% 0.4 % (0-1); Eosinophil# 0.16 X10^3/uL; Eosinophils% 2.3 % (0-5); Hematocrit 32.5 % (40-54); Hemoglobin 10.2 g/dL (13.0-16.5); Lymphocyte # 0.27 X10^3/ul (0.83-4.51); Lymphocyte % 3.8 % (19-41); Mean Corp Hgb Conc 31.4 g/dL (32-36); Mean Corpuscular Volume 98.8 fL (80-94); Mean Platelet Vol. 10.8 fl (6.2-12.0); Monocyte# 0.46 X10^3/uL; Monocyte% 6.5 % (0-10); NRBC Flagged by Analyzer 0 % (0-5); Neutrophil # 6.07 X10^3/uL (2.7-7.7); Neutrophil % 86.4 % (47-70); POSITIVE DIFFERENTIAL YES; POSITIVE MORPHOLOGY YES; Platelet Count 154 K/mm3 (150-450); RBC Distribution Width CV 18.4 % (11.6-14.6); RBC Distribution Width SD 65.2 fl (35.1-43.9); Red Blood Count 3.29 M/mm3 (4.6-6.2)
[2022-04-04 05:18] LABS: Differential Indicated SCAN CRITERIA MET
[2022-04-04 05:36] LABS: Anion Gap 6 (5-15); BUN 32 mg/dL (7-18); BUN/Creat Ratio 23.4 RATIO (10-20); Calcium,Total 9.2 mg/dL (8.5-10.1); Chloride 110 mmol/L (98-107); Creatinine, Serum 1.37 mg/dL (0.70-1.30); EST Glomerular Filtration Rate 55 mL/min (>60); Est Glom Filt Rate - Afr Amer 66 mL/min (>60); Estimated Creatinine Clearance 50.89 ml/min; Glucose 166 mg/dL (74-106); Potassium 3.9 mmol/L (3.5-5.1); Sodium Level 139 mmol/L (136-145)
[2022-04-04 05:57] LABS: Anisocytosis 1+; Macrocytosis 1+
[2022-04-04 06:41] LABS: Bedside Glucose 135 mg/dL (74-106)
[2022-04-04] MEDS: Multivitamins,Therapeutic Tablet 1 TABLET PO (07:58)
[2022-04-04 16:00] VITALS: BP 147/88; PULSE 70; RESP 16; TEMP 36.2; O2SAT 97
[2022-04-04] MEDS: Tamsulosin HCl 0.4 MG Capsule PO (17:26)
[2022-04-04 21:51] LABS: Bedside Glucose 206 mg/dL (74-106)
[2022-04-04] MEDS: Insulin Glargine-YFGN 100 UNIT/ML Pen 27 UNIT SC (21:58)
--- NOTE | 2022-04-05 05:36 | PCA ---
patient yelled at parts counter clerk when he called to use the bathroom at 10pm and parts counter clerk had said to him see you at midnight. he stated we always tell him that and that when he rings we should come running to him parts counter clerk told him we have 22 patients to care for and go to them in the order they call
[2022-04-05] MEDS: tiZANidine HCl 2 MG Tablet 4 MG PO ×2 (06:32→17:31)
[2022-04-05] MEDS: Loratadine 10 MG Tablet PO (06:32)
[2022-04-05] MEDS: Nadolol 20 MG Tablet 5 MG PO (06:33)
[2022-04-05] MEDS: Pantoprazole Sodium 20 MG Tablet PO (06:33)
[2022-04-05] MEDS: APIXABAN 5 MG TABLET PO ×2 (06:34→17:30)
[2022-04-05] MEDS: Topiramate 25 MG Tablet PO ×2 (06:34→17:30)
[2022-04-05] MEDS: BICALUTAMIDE 50 MG TABLET PO (06:34)
[2022-04-05] MEDS: Cyanocobalamin 500 MCG Tablet 250 MCG PO (06:34)
[2022-04-05] MEDS: Iron Polysaccharide Complex 150 MG CAPSULE PO (06:35)
[2022-04-05] MEDS: Menthol/Lanolin/Calamine/Znox 113 GM Tube 1 APPLIC TOPICAL ×2 (06:35→17:32)
[2022-04-05 06:36] LABS: Bedside Glucose 144 mg/dL (74-106)
[2022-04-05] MEDS: Lidocaine 5% Patch 2 PATCH TOPICAL (06:36)
[2022-04-05] MEDS: Multivitamins,Therapeutic Tablet 1 TABLET PO (08:17)
[2022-04-05] MEDS: traMADol 50 MG Tablet PO ×2 (13:08→22:47)
[2022-04-05 13:40] VITALS: BP 142/82; PULSE 71; RESP 16; TEMP 36.3; O2SAT 98
[2022-04-05] MEDS: Tamsulosin HCl 0.4 MG Capsule PO (17:31)
[2022-04-05 21:26] LABS: Bedside Glucose 171 mg/dL (74-106)
[2022-04-05] MEDS: Insulin Glargine-YFGN 100 UNIT/ML Pen 27 UNIT SC (22:47)
[2022-04-06] MEDS: traMADol 50 MG Tablet PO ×3 (05:55→23:33)
[2022-04-06] MEDS: BICALUTAMIDE 50 MG TABLET PO (05:56)
[2022-04-06] MEDS: Lidocaine 5% Patch 2 PATCH TOPICAL (05:56)
[2022-04-06] MEDS: Iron Polysaccharide Complex 150 MG CAPSULE PO (05:56)
[2022-04-06] MEDS: Loratadine 10 MG Tablet PO (05:56)
[2022-04-06] MEDS: Topiramate 25 MG Tablet PO ×2 (05:56→17:23)
[2022-04-06] MEDS: APIXABAN 5 MG TABLET PO ×2 (05:56→17:23)
[2022-04-06] MEDS: Cyanocobalamin 500 MCG Tablet 250 MCG PO (05:56)
[2022-04-06] MEDS: Nadolol 20 MG Tablet 5 MG PO (05:56)
[2022-04-06] MEDS: Pantoprazole Sodium 20 MG Tablet PO (05:56)
[2022-04-06] MEDS: Menthol/Lanolin/Calamine/Znox 113 GM Tube 1 APPLIC TOPICAL ×2 (05:57→17:25)
[2022-04-06] MEDS: tiZANidine HCl 2 MG Tablet 4 MG PO ×2 (06:09→17:23)
[2022-04-06 06:21] LABS: Bedside Glucose 129 mg/dL (74-106)
[2022-04-06] MEDS: Multivitamins,Therapeutic Tablet 1 TABLET PO (08:58)
[2022-04-06 10:49] VITALS: PULSE 71; RESP 20; TEMP 36.1; O2SAT 96
[2022-04-06 13:33] VITALS: BP 116/78
[2022-04-06] MEDS: Tamsulosin HCl 0.4 MG Capsule PO (17:23)
[2022-04-06 20:25] VITALS: PULSE 70; RESP 18; O2SAT 97
[2022-04-06] MEDS: LORazepam 0.5 MG Tablet PO (20:27)
[2022-04-06 21:31] LABS: Bedside Glucose 207 mg/dL (74-106)
[2022-04-06] MEDS: Insulin Glargine-YFGN 100 UNIT/ML Pen 27 UNIT SC (22:55)
[2022-04-07 02:01] VITALS: BP 109/69; PULSE 70; RESP 18; TEMP 36.1; O2SAT 97
[2022-04-07] MEDS: BICALUTAMIDE 50 MG TABLET PO (05:03)
[2022-04-07] MEDS: Loratadine 10 MG Tablet PO (05:03)
[2022-04-07] MEDS: Nadolol 20 MG Tablet 5 MG PO (05:04)
[2022-04-07 05:05] VITALS: BP 132/75; PULSE 68; RESP 16; TEMP 36.3
[2022-04-07] MEDS: APIXABAN 5 MG TABLET PO ×2 (05:05→17:24)
[2022-04-07] MEDS: Iron Polysaccharide Complex 150 MG CAPSULE PO (05:06)
[2022-04-07] MEDS: Lidocaine 5% Patch 2 PATCH TOPICAL (05:06)
[2022-04-07] MEDS: Pantoprazole Sodium 20 MG Tablet PO (05:06)
[2022-04-07] MEDS: Cyanocobalamin 500 MCG Tablet 250 MCG PO (05:07)
[2022-04-07] MEDS: Topiramate 25 MG Tablet PO ×2 (05:07→17:25)
[2022-04-07] MEDS: tiZANidine HCl 2 MG Tablet 4 MG PO ×2 (05:08→17:24)
[2022-04-07] MEDS: Menthol/Lanolin/Calamine/Znox 113 GM Tube 1 APPLIC TOPICAL ×2 (05:09→17:25)
[2022-04-07] MEDS: traMADol 50 MG Tablet PO ×2 (06:15→17:28)
[2022-04-07 06:16] LABS: Bedside Glucose 113 mg/dL (74-106)
[2022-04-07] MEDS: Multivitamins,Therapeutic Tablet 1 TABLET PO (07:38)
[2022-04-07 12:25] VITALS: PULSE 70; RESP 20; TEMP 36.4; O2SAT 96
[2022-04-07 14:05] VITALS: BP 107/68
[2022-04-07] MEDS: Tamsulosin HCl 0.4 MG Capsule PO (17:24)
[2022-04-07] MEDS: Insulin Glargine-YFGN 100 UNIT/ML Pen 27 UNIT SC (21:46)
[2022-04-07 22:00] LABS: Bedside Glucose 178 mg/dL (74-106)
[2022-04-08 06:31] LABS: Bedside Glucose 133 mg/dL (74-106)
[2022-04-08] MEDS: Pantoprazole Sodium 20 MG Tablet PO (06:52)
[2022-04-08] MEDS: Iron Polysaccharide Complex 150 MG CAPSULE PO (06:52)
[2022-04-08] MEDS: Lidocaine 5% Patch 2 PATCH TOPICAL (06:52)
[2022-04-08] MEDS: tiZANidine HCl 2 MG Tablet 4 MG PO ×2 (06:52→17:34)
[2022-04-08] MEDS: APIXABAN 5 MG TABLET PO ×2 (06:52→17:33)
[2022-04-08] MEDS: Topiramate 25 MG Tablet PO ×2 (06:52→17:33)
[2022-04-08] MEDS: Nadolol 20 MG Tablet 5 MG PO (06:53)
[2022-04-08] MEDS: BICALUTAMIDE 50 MG TABLET PO (06:53)
[2022-04-08] MEDS: Cyanocobalamin 500 MCG Tablet 250 MCG PO (06:53)
[2022-04-08] MEDS: Loratadine 10 MG Tablet PO (06:54)
[2022-04-08] MEDS: Menthol/Lanolin/Calamine/Znox 113 GM Tube 1 APPLIC TOPICAL ×2 (07:05→23:11)
[2022-04-08] MEDS: Multivitamins,Therapeutic Tablet 1 TABLET PO (09:08)
[2022-04-08] MEDS: traMADol 50 MG Tablet PO ×2 (09:10→21:20)
[2022-04-08] MEDS: Bisacodyl 5 MG Tablet 10 MG PO (09:10)
--- NOTE | 2022-04-08 09:12 | NURSING ---
PT NOTIFIED THAT A STAFF MEMBER TESTED POSITIVE FOR COVID.
--- NOTE | 2022-04-08 09:52 | NURSING ---
Resident and resident's lithography contact worker Bob made aware of TCU staff member that tested positive for COVID 19
[2022-04-08 12:20] VITALS: PULSE 71; RESP 18; O2SAT 97
[2022-04-08 15:25] VITALS: BP 127/83; PULSE 70; RESP 15; TEMP 36.8; O2SAT 98
[2022-04-08] MEDS: Tamsulosin HCl 0.4 MG Capsule PO (17:33)
[2022-04-08] MEDS: LORazepam 0.5 MG Tablet PO (21:20)
[2022-04-08] MEDS: Insulin Glargine-YFGN 100 UNIT/ML Pen 27 UNIT SC (21:22)
[2022-04-08 21:31] LABS: Bedside Glucose 171 mg/dL (74-106)
[2022-04-09] MEDS: Lidocaine 5% Patch 2 PATCH TOPICAL (06:10)
[2022-04-09] MEDS: Loratadine 10 MG Tablet PO (06:10)
[2022-04-09] MEDS: Nadolol 20 MG Tablet 5 MG PO (06:10)
[2022-04-09] MEDS: BICALUTAMIDE 50 MG TABLET PO (06:10)
[2022-04-09] MEDS: Cyanocobalamin 500 MCG Tablet 250 MCG PO (06:11)
[2022-04-09] MEDS: Topiramate 25 MG Tablet PO ×2 (06:11→17:50)
[2022-04-09] MEDS: APIXABAN 5 MG TABLET PO ×2 (06:11→17:50)
[2022-04-09] MEDS: Iron Polysaccharide Complex 150 MG CAPSULE PO (06:11)
[2022-04-09] MEDS: Pantoprazole Sodium 20 MG Tablet PO (06:11)
[2022-04-09] MEDS: Menthol/Lanolin/Calamine/Znox 113 GM Tube 1 APPLIC TOPICAL ×2 (06:12→17:48)
[2022-04-09] MEDS: tiZANidine HCl 2 MG Tablet 4 MG PO ×2 (06:13→17:50)
[2022-04-09 06:21] LABS: Bedside Glucose 109 mg/dL (74-106)
[2022-04-09] MEDS: traMADol 50 MG Tablet PO ×2 (08:26→21:54)
[2022-04-09] MEDS: Multivitamins,Therapeutic Tablet 1 TABLET PO (08:26)
[2022-04-09 11:21] VITALS: PULSE 20; RESP 70; TEMP 35.9; O2SAT 98
[2022-04-09 13:07] VITALS: BP 115/67
[2022-04-09 14:00] VITALS: PULSE 70; RESP 18; O2SAT 97
[2022-04-09] MEDS: Tamsulosin HCl 0.4 MG Capsule PO (17:50)
[2022-04-09 21:40] LABS: Bedside Glucose 229 mg/dL (74-106)
[2022-04-09] MEDS: LORazepam 0.5 MG Tablet PO (21:54)
[2022-04-09] MEDS: Insulin Glargine-YFGN 100 UNIT/ML Pen 27 UNIT SC (21:55)
[2022-04-10] MEDS: Lidocaine 5% Patch 2 PATCH TOPICAL (04:50)
[2022-04-10] MEDS: APIXABAN 5 MG TABLET PO ×2 (04:51→17:24)
[2022-04-10] MEDS: tiZANidine HCl 2 MG Tablet 4 MG PO ×2 (04:51→17:26)
[2022-04-10] MEDS: Topiramate 25 MG Tablet PO ×2 (04:51→17:26)
[2022-04-10] MEDS: Cyanocobalamin 500 MCG Tablet 250 MCG PO (04:52)
[2022-04-10] MEDS: Nadolol 20 MG Tablet 5 MG PO (04:53)
[2022-04-10] MEDS: BICALUTAMIDE 50 MG TABLET PO (04:54)
[2022-04-10] MEDS: Pantoprazole Sodium 20 MG Tablet PO (04:54)
[2022-04-10] MEDS: Iron Polysaccharide Complex 150 MG CAPSULE PO (04:55)
[2022-04-10] MEDS: Loratadine 10 MG Tablet PO (04:55)
[2022-04-10] MEDS: Menthol/Lanolin/Calamine/Znox 113 GM Tube 1 APPLIC TOPICAL ×2 (04:55→17:27)
[2022-04-10 04:58] VITALS: BP 127/76; PULSE 77
[2022-04-10 06:25] LABS: Bedside Glucose 133 mg/dL (74-106)
[2022-04-10] MEDS: Multivitamins,Therapeutic Tablet 1 TABLET PO (08:24)
[2022-04-10 13:44] VITALS: BP 114/72; PULSE 72; RESP 18; TEMP 36.3; O2SAT 98
[2022-04-10] MEDS: Tamsulosin HCl 0.4 MG Capsule PO (17:24)
[2022-04-10] MEDS: traMADol 50 MG Tablet PO (17:30)
[2022-04-10] MEDS: Insulin Glargine-YFGN 100 UNIT/ML Pen 27 UNIT SC (21:39)
[2022-04-10 21:41] LABS: Bedside Glucose 158 mg/dL (74-106)
[2022-04-11] MEDS: Lidocaine 5% Patch 2 PATCH TOPICAL (05:34)
[2022-04-11] MEDS: tiZANidine HCl 2 MG Tablet 4 MG PO ×2 (05:35→17:50)
[2022-04-11] MEDS: Topiramate 25 MG Tablet PO ×2 (05:35→17:51)
[2022-04-11] MEDS: Cyanocobalamin 500 MCG Tablet 250 MCG PO (05:36)
[2022-04-11] MEDS: Iron Polysaccharide Complex 150 MG CAPSULE PO (05:36)
[2022-04-11] MEDS: BICALUTAMIDE 50 MG TABLET PO (05:36)
[2022-04-11] MEDS: Loratadine 10 MG Tablet PO (05:36)
[2022-04-11] MEDS: Pantoprazole Sodium 20 MG Tablet PO (05:37)
[2022-04-11] MEDS: APIXABAN 5 MG TABLET PO ×2 (05:38→17:51)
[2022-04-11] MEDS: Nadolol 20 MG Tablet 5 MG PO (05:38)
[2022-04-11] MEDS: Menthol/Lanolin/Calamine/Znox 113 GM Tube 1 APPLIC TOPICAL ×2 (05:44→17:50)
[2022-04-11 06:31] LABS: Bedside Glucose 150 mg/dL (74-106)
[2022-04-11 07:38] LABS: Absolute Lymphocyte Count 0.27 X10^3/uL (0.83-4.51); Absolute Neutrophil Count 3.8 X10^3/uL (2.0-7.7); Basophil# 0.02 X10^3/uL; Basophil% 0.4 % (0-1); Eosinophils% 4.3 % (0-5); Hematocrit 31.9 % (40-54); Hemoglobin 9.7 g/dL (13.0-16.5); Lymphocyte # 0.27 X10^3/ul (0.83-4.51); Lymphocyte % 5.8 % (19-41); Mean Corp Hgb Conc 30.4 g/dL (32-36); Mean Corpuscular Hgb 30.9 pg (27.0-32.0); Mean Corpuscular Volume 101.6 fL (80-94); Monocyte# 0.29 X10^3/uL; Monocyte% 6.3 % (0-10); NRBC Flagged by Analyzer 0 % (0-5); Neutrophil # 3.79 X10^3/uL (2.7-7.7); Neutrophil % 81.9 % (47-70); POSITIVE DIFFERENTIAL YES; POSITIVE MORPHOLOGY YES; Platelet Count 160 K/mm3 (150-450); RBC Distribution Width CV 18.5 % (11.6-14.6); RBC Distribution Width SD 68.3 fl (35.1-43.9); Red Blood Count 3.14 M/mm3 (4.6-6.2); White Blood Count 4.6 K/mm3 (4.4-11.0)
[2022-04-11 07:48] LABS: Differential Indicated SCAN CRITERIA MET
[2022-04-11 07:56] LABS: Anion Gap 5 (5-15); BUN 28 mg/dL (7-18); BUN/Creat Ratio 24.1 RATIO (10-20); Calcium,Total 8.7 mg/dL (8.5-10.1); Chloride 114 mmol/L (98-107); Creatinine, Serum 1.16 mg/dL (0.70-1.30); EST Glomerular Filtration Rate 66 mL/min (>60); Est Glom Filt Rate - Afr Amer 80 mL/min (>60); Glucose 152 mg/dL (74-106); Sodium Level 142 mmol/L (136-145)
[2022-04-11 08:12] LABS: Anisocytosis RARE
[2022-04-11] MEDS: traMADol 50 MG Tablet PO ×2 (09:24→22:38)
[2022-04-11] MEDS: Multivitamins,Therapeutic Tablet 1 TABLET PO (09:25)
[2022-04-11 10:00] VITALS: PULSE 60; RESP 14; O2SAT 98
--- NOTE | 2022-04-11 13:14 | NURSING ---
Notified Dr. Johnson of pt request for something for anxiety. Received order to change Ativan 0.5mg qhs PRN to q6hr PRN. Order repeated back, will add order.
[2022-04-11 13:53] VITALS: BP 132/88; PULSE 71; RESP 16; TEMP 36.1; O2SAT 98
[2022-04-11] MEDS: LORazepam 0.5 MG Tablet PO ×2 (14:46→22:38)
[2022-04-11] MEDS: Tamsulosin HCl 0.4 MG Capsule PO (17:50)
[2022-04-11 21:41] LABS: Bedside Glucose 194 mg/dL (74-106)
[2022-04-11] MEDS: Insulin Glargine-YFGN 100 UNIT/ML Pen 27 UNIT SC (22:39)
[2022-04-12] MEDS: Topiramate 25 MG Tablet PO ×2 (04:47→17:45)
[2022-04-12] MEDS: APIXABAN 5 MG TABLET PO ×2 (04:48→17:45)
[2022-04-12] MEDS: Iron Polysaccharide Complex 150 MG CAPSULE PO (04:48)
[2022-04-12] MEDS: Pantoprazole Sodium 20 MG Tablet PO (04:48)
[2022-04-12] MEDS: BICALUTAMIDE 50 MG TABLET PO (04:49)
[2022-04-12] MEDS: Cyanocobalamin 500 MCG Tablet 250 MCG PO (04:49)
[2022-04-12] MEDS: Loratadine 10 MG Tablet PO (04:49)
[2022-04-12] MEDS: tiZANidine HCl 2 MG Tablet 4 MG PO ×2 (04:49→17:46)
[2022-04-12] MEDS: Nadolol 20 MG Tablet 5 MG PO (04:50)
[2022-04-12] MEDS: Lidocaine 5% Patch 2 PATCH TOPICAL (04:51)
[2022-04-12] MEDS: Menthol/Lanolin/Calamine/Znox 113 GM Tube 1 APPLIC TOPICAL ×2 (04:57→17:48)
[2022-04-12 06:31] LABS: Bedside Glucose 130 mg/dL (74-106)
[2022-04-12] MEDS: traMADol 50 MG Tablet PO ×2 (08:08→20:56)
[2022-04-12] MEDS: Multivitamins,Therapeutic Tablet 1 TABLET PO (08:08)
--- NOTE | 2022-04-12 09:14 | SLEEP ---
Addendum entered and electronically signed by Anna Guerrero RRT 04/12/22 09:20: Attempt to notify daughter resulted in full voicemail box, unable to leave message Original Note: Per pt's/daughter Bob's request, went to evaluate patient's cpap mask for missing piece which was prohibiting his use of home unit. Patient's DME is [facility] and they told his daughter they were unable to assist patient while in TCU. Patient was provided with F&P Vitera full face mask with medium cushion from [facility] d/t not having the piece he was missing from his original mask. This mask fit him well and did not leak when tried with his device. He was shown how to properly adjust as well as educated on cleaning the cushion daily to minimize leaks. Daughter made aware as well
[2022-04-12 10:41] LABS: Bedside Glucose 209 mg/dL (74-106)
[2022-04-12 10:46] VITALS: BP 122/87; PULSE 70; RESP 18; TEMP 36.2; O2SAT 96
--- NOTE | 2022-04-12 10:47 | NURSING ---
THERAPY IN ROOM WHEN THIS NURSE WALKED IN. THERAPY STATED PT COMPLAINED OF NOT FEELING WELL AND DIZZY. VITALS AND BLOOD SUGAR CHECKED. PT STARTED CRYING AND THIS NURSE ASKED WHAT WAS WRONG,PT STATED THAT HE WAS AFRAID OF FALLING AND BRAKING HIS HIP AGAIN WHEN GOING HOME. THIS NURSE AND THERAPY DID A LITTLE ONE ON ONE WITH PT. PT FELT A LITTLE MORE AT EASE. NOTIFIED LUISA,TECHNICAL PROGRAM MANAGER. WILL CONTINUE TO MONITOR. RN AWARE
[2022-04-12 11:12] VITALS: PULSE 70; RESP 20; TEMP 35.9; O2SAT 97
[2022-04-12 12:56] VITALS: BP 117/72
[2022-04-12] MEDS: Tamsulosin HCl 0.4 MG Capsule PO (17:44)
[2022-04-12 20:45] VITALS: O2SAT 93
[2022-04-12] MEDS: Insulin Glargine-YFGN 100 UNIT/ML Pen 27 UNIT SC (22:06)
[2022-04-12] MEDS: LORazepam 0.5 MG Tablet PO (22:16)
--- NOTE | 2022-04-12 22:18 | NURSING ---
Cpap applied for the night. HOB elevated, call light in reach.
[2022-04-12 22:41] LABS: Bedside Glucose 166 mg/dL (74-106)
[2022-04-13] MEDS: Lidocaine 5% Patch 2 PATCH TOPICAL (06:02)
[2022-04-13] MEDS: traMADol 50 MG Tablet PO ×2 (06:06→20:58)
[2022-04-13] MEDS: Pantoprazole Sodium 20 MG Tablet PO (06:07)
[2022-04-13] MEDS: Loratadine 10 MG Tablet PO (06:07)
[2022-04-13] MEDS: Nadolol 20 MG Tablet 5 MG PO (06:07)
[2022-04-13] MEDS: BICALUTAMIDE 50 MG TABLET PO (06:08)
[2022-04-13] MEDS: APIXABAN 5 MG TABLET PO ×2 (06:08→17:11)
[2022-04-13] MEDS: Topiramate 25 MG Tablet PO ×2 (06:08→17:13)
[2022-04-13] MEDS: tiZANidine HCl 2 MG Tablet 4 MG PO ×2 (06:08→17:11)
[2022-04-13] MEDS: Cyanocobalamin 500 MCG Tablet 250 MCG PO (06:08)
[2022-04-13] MEDS: Iron Polysaccharide Complex 150 MG CAPSULE PO (06:08)
[2022-04-13] MEDS: Menthol/Lanolin/Calamine/Znox 113 GM Tube 1 APPLIC TOPICAL ×2 (06:12→17:15)
[2022-04-13 06:25] LABS: Bedside Glucose 131 mg/dL (74-106)
[2022-04-13] MEDS: Multivitamins,Therapeutic Tablet 1 TABLET PO (08:59)
--- NOTE | 2022-04-13 12:35 | CASEMGMT ---
Social Work BIMS and PHQ-9 completed for MDS assessment. Janeen Kline, CUSTOMER RESOURCE SPECIALIST REVERSE UNIT OPERATOR
--- NOTE | 2022-04-13 12:50 | NURSING ---
Addendum entered by Yamileth Pollock 04/13/22 14:24: pt returned to floor from appointment Original Note: pt left floor for oncology appointment
[2022-04-13 13:35] VITALS: BP 140/75; PULSE 80; RESP 18; TEMP 36.1; O2SAT 96
[2022-04-13] MEDS: Tamsulosin HCl 0.4 MG Capsule PO (17:11)
[2022-04-13 20:45] VITALS: O2SAT 96
[2022-04-13 21:35] LABS: Bedside Glucose 189 mg/dL (74-106)
[2022-04-13] MEDS: Insulin Glargine-YFGN 100 UNIT/ML Pen 27 UNIT SC (22:08)
[2022-04-14] MEDS: Nadolol 20 MG Tablet 5 MG PO (06:05)
[2022-04-14] MEDS: Loratadine 10 MG Tablet PO (06:05)
[2022-04-14] MEDS: Pantoprazole Sodium 20 MG Tablet PO (06:05)
[2022-04-14] MEDS: tiZANidine HCl 2 MG Tablet 4 MG PO (06:05)
[2022-04-14] MEDS: Topiramate 25 MG Tablet PO (06:07)
[2022-04-14] MEDS: Iron Polysaccharide Complex 150 MG CAPSULE PO (06:07)
[2022-04-14] MEDS: Cyanocobalamin 500 MCG Tablet 250 MCG PO (06:07)
[2022-04-14] MEDS: BICALUTAMIDE 50 MG TABLET PO (06:07)
[2022-04-14] MEDS: APIXABAN 5 MG TABLET PO (06:07)
[2022-04-14] MEDS: Lidocaine 5% Patch 2 PATCH TOPICAL (06:09)
[2022-04-14] MEDS: Menthol/Lanolin/Calamine/Znox 113 GM Tube 1 APPLIC TOPICAL (06:11)
[2022-04-14 06:21] LABS: Bedside Glucose 109 mg/dL (74-106)
[2022-04-14] MEDS: Multivitamins,Therapeutic Tablet 1 TABLET PO (07:41)
[2022-04-14 09:00] VITALS: PULSE 70; RESP 18; O2SAT 97
[2022-04-14 09:10] VITALS: BP 129/74; PULSE 70; RESP 18; TEMP 36.2; O2SAT 97
== END 2022-04-14 09:45 | disposition home health service (06) | DRG 560 ==
PROVIDERS: Admitting Provider Family Medicine Geriatric Medicine; PCP Internal Medicine; Visit Provider Family Medicine Geriatric Medicine
DX: S72.001D Fracture of unspecified part of neck of right femur, subsequent encounter for closed fracture with routine healing (principal); I13.0 Hypertensive heart and chronic kidney disease with heart failure and stage 1 through stage 4 chronic kidney disease, or unspecified chronic kidney disease; C79.51 Secondary malignant neoplasm of bone; I50.42 Chronic combined systolic (congestive) and diastolic (congestive) heart failure; I42.8 Other cardiomyopathies; I48.19 Other persistent atrial fibrillation; C61 Malignant neoplasm of prostate; E11.22 Type 2 diabetes mellitus with diabetic chronic kidney disease; G40.909 Epilepsy, unspecified, not intractable, without status epilepticus; K74.60 Unspecified cirrhosis of liver; Z79.4 Long term (current) use of insulin; N18.31 Chronic kidney disease, stage 3a; E53.8 Deficiency of other specified B group vitamins; K75.81 Nonalcoholic steatohepatitis (NASH); E78.5 Hyperlipidemia, unspecified; I25.10 Atherosclerotic heart disease of native coronary artery without angina pectoris; K21.9 Gastro-esophageal reflux disease without esophagitis; J45.909 Unspecified asthma, uncomplicated; W19.XXXD Unspecified fall, subsequent encounter; I25.2 Old myocardial infarction; G47.30 Sleep apnea, unspecified; N40.0 Benign prostatic hyperplasia without lower urinary tract symptoms; Z79.01 Long term (current) use of anticoagulants; Z87.891 Personal history of nicotine dependence; Z79.899 Other long term (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; Z92.3 Personal history of irradiation; Z23 Encounter for immunization; Z96.641 Presence of right artificial hip joint; Z51.0 Encounter for antineoplastic radiation therapy
CPT/HCPCS: 0004A; 36415; 73502; 77385; 80048; 81001; 82962; 84153; 85014; 85018; 85025; 86850; 86900; 86901; 86920; 86922; 87086; 87088; 87186; 87426; 91300; 92507; 92523; 92526; 92610; 97110; 97116; 97129; 97130; 97162; 97166; 97530; 97535; 97802; J2185; J7030; J7050; A4216

== ENCOUNTER → 2022-03-31 | Outpatient (CLI) | payer MEDICARE, OTHER, SELFPAY ==
[2022-03-31] VITALS (8 sets, daily range): BP systolic 89–130; BP diastolic 52–97; PULSE 69–107; RESP 12–18; TEMP 36.2–37.2; O2SAT 97–100; BMI 25.7
[2022-03-31] MEDS: 0.9% NaCl Peripheral Flush Adult/Peds IV ×2 (10:43→12:45)
[2022-03-31] MEDS: Furosemide 20 MG/2 ML VIAL IV (10:43)
== END | disposition home or self-care (01) ==
LOC: MEDOUTP 08:11
PROVIDERS: PCP Internal Medicine; Referring Provider Family Medicine Geriatric Medicine; Visit Provider Family Medicine Geriatric Medicine
DX: D64.9 Anemia, unspecified (principal)
CPT/HCPCS: 36415; 36430; 86850; 86900; 86901; 86920; 86922; J7030; P9016; A4216; J1940

== ENCOUNTER 2022-04-25 17:27 | Observation (INO) | payer MEDICARE, OTHER, SELFPAY ==
[2022-04-25] VITALS (7 sets, daily range): BP systolic 116–145; BP diastolic 93–107; PULSE 70; RESP 16–26; TEMP 36.1–36.5; O2SAT 84–99; BMI 28.4; BMI 27.2
--- NOTE | 2022-04-25 17:36 | EKG12_ITS ---
Test Reason : CHEST PAIN Blood Pressure : / mmHG Vent. Rate : 070 BPM Atrial Rate : 070 BPM P-R Int : 000 ms QRS Dur : 124 ms QT Int : 466 ms P-R-T Axes : 060 207 042 degrees QTc Int : 503 ms Ventricular-paced rhythm Biventricular pacemaker detected Abnormal ECG Confirmed by HOWARD BUSTILLO, BRADY ([id number]), script editor TODD PEDERSEN ([id number]) on 04/26/2022 10:17:54 AM Referred By: ALYSON Confirmed By:BRADY LAWRENCE MD
[2022-04-25 17:59] LABS: Absolute Lymphocyte Count 0.27 X10^3/uL (0.83-4.51); Absolute Neutrophil Count 7.7 X10^3/uL (2.0-7.7); Basophil# 0.03 X10^3/uL; Basophil% 0.3 % (0-1); Eosinophil# 0.28 X10^3/uL; Eosinophils% 3.1 % (0-5); Hematocrit 40.2 % (40-54); Hemoglobin 12.6 g/dL (13.0-16.5); Lymphocyte # 0.27 X10^3/ul (0.83-4.51); Mean Corp Hgb Conc 31.3 g/dL (32-36); Mean Corpuscular Hgb 30.9 pg (27.0-32.0); Mean Corpuscular Volume 98.5 fL (80-94); Mean Platelet Vol. 11.1 fl (6.2-12.0); Monocyte% 6.7 % (0-10); NRBC Flagged by Analyzer 0 % (0-5); Neutrophil # 7.67 X10^3/uL (2.7-7.7); Neutrophil % 86.2 % (47-70); POSITIVE DIFFERENTIAL YES; POSITIVE MORPHOLOGY YES; Platelet Count 167 K/mm3 (150-450); RBC Distribution Width CV 18.8 % (11.6-14.6); Red Blood Count 4.08 M/mm3 (4.6-6.2); White Blood Count 8.9 K/mm3 (4.4-11.0)
--- NOTE | 2022-04-25 18:08 | RAD_ITS ---
STUDY: X-RAY CHEST REASON FOR EXAM: Male, 71 years old. chest pain TECHNIQUE: Single AP portable view of the chest. COMPARISON: 02/10/2022 FINDINGS: Left subclavian AICD which is unchanged. The lungs are clear and expanded. There is no demonstrated pleural abnormality. There is moderate cardiac enlargement. Normal mediastinum and ashly. Normal visualized pulmonary arteries. Normal visualized aortic arch and descending thoracic aorta. Normal visualized thoracic spine. Normal visualized ribs, clavicles, and shoulders. There is no demonstrated abnormality of the visualized soft tissue structures of the upper abdomen. RAD/Chest 1 View (Portable) IMPRESSION: No active disease. Electronically Signed: Stanton Pratt MD at 18:44 EDT ,
[2022-04-25 18:18] LABS: Anion Gap 6 (5-15); BUN 41 mg/dL (7-18); BUN/Creat Ratio 24.6 RATIO (10-20); Calcium,Total 9.1 mg/dL (8.5-10.1); Chloride 106 mmol/L (98-107); Creatinine, Serum 1.67 mg/dL (0.70-1.30); EST Glomerular Filtration Rate 44 mL/min (>60); Est Glom Filt Rate - Afr Amer 53 mL/min (>60); Estimated Creatinine Clearance 41.75 ml/min; Glucose 228 mg/dL (74-106); Potassium 5.2 mmol/L (3.5-5.1); Sodium Level 138 mmol/L (136-145); Troponin-I HS (w/2H Reflex) 100 pg/mL (3.0-78.0)
[2022-04-25] MEDS: MethylPREDNISolone 125 MG/2 ML Vial IV (18:38)
[2022-04-25] MEDS: Ondansetron 4 MG/2 ML Vial IV (18:40)
[2022-04-25] MEDS: Morphine 4 MG/ML Syringe IV (18:40)
[2022-04-25] MEDS: Ipratropium/Albuterol Sulfate 3 ML AMPUL.NEB INHALATION (18:41)
[2022-04-25] MEDS: Albuterol 2.5 MG/3 ML VIAL.NEB. INHALATION (18:41)
[2022-04-25 18:50] LABS: Anisocytosis 2+; Differential Comment SCANNED; Differential Indicated SCAN CRITERIA MET; Macrocytosis 1+; Microcytosis 1+
--- NOTE | 2022-04-25 19:00 | CPS ---
x1 Albuterol given to pt. in ER as well
--- NOTE | 2022-04-25 19:01 | CPS ---
2L NC started for pt. due to desaturations. Pt. desats due to primarily breathing through his mouth. He also desats when he starts falling asleep. RN notified of 2L NC.
--- NOTE | 2022-04-25 19:32 | EDS_ITS ---
HPI History of Present Illness Chief Complaint: Chest Pain Narrative Narrative: Patient presenting with chest pain which is retrosternal and been going on for about 4 to 5 days. He also admits to shortness of breath which has been worsening. He states his breathing treatments are not helping him breathe better. He has not had a fever or chills. No productive cough. No body aches or chills. Patient is anticoagulated on Eliquis due to history of atrial fibrillation. Patient does not wear home O2 but does wear CPAP at night. He does not have any leg swelling or edema. [facility] Medical History Ambulates with cane Anticoagulant long-term use Ascites Asthma Atherosclerosis of coronary artery of [place] heart without angina pectoris Atrial fibrillation and flutter Back pain Benign brain tumor Cholelithiasis Chronic combined systolic and diastolic CHF (congestive heart failure) Chronic kidney disease (CKD) Cirrhosis of liver Cirrhosis of liver with ascites CPAP (continuous positive airway pressure) dependence Diabetes Diabetes mellitus, type II Essential (primary) hypertension Former smoker History of atrial fibrillation History of CVA (cerebrovascular accident) History of ulceration Hyperlipidemia Injury of back Insulin dependent diabetes mellitus Longstanding persistent atrial fibrillation Non-rheumatic tricuspid valve insufficiency Nonischemic cardiomyopathy NSTEMI (non-ST elevated myocardial infarction) (10/09/19) ALBINO (obstructive sleep apnea) 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 Right inguinal hernia Right ventricular systolic dysfunction Secondary pulmonary arterial hypertension Seizure disorder Sleep apnea Stasis edema of both lower extremities Stroke/cerebrovascular accident Thyroid disease Wears glasses Home Medications insulin glargine 100 unit/mL (3 mL) subcutaneous pen 27 unit SQ QHS diabetes 10/30/18 [History Last Taken 01/30/19] omeprazole 20 mg capsule,delayed release 20 mg PO BID reflux 10/30/18 [History Last Taken 01/31/19] topiramate 25 mg tablet 25 mg PO BID seizures 10/30/18 [History Last Taken 01/31/19] tamsulosin 0.4 mg capsule 0.4 mg PO QHS urinary 05/08/21 [History Last Taken 02/18/22 10:31] bicalutamide 50 mg tablet (Casodex) 50 mg PO DAILY Check with primary doctor 12/10/21 [History Last Taken 02/18/22 10:32] loratadine 10 mg capsule 10 mg PO DAILY Allergies 12/10/21 [History Last Taken 02/18/22 10:32] apixaban 5 mg tablet (Eliquis) 5 mg PO BID Check with primary doctor 02/19/22 [History Last Taken 02/16/22 08:57] cyanocobalamin (vitamin B-12) 250 mcg tablet (Vitamin B-12) 250 mcg PO DAILY Supplement 02/19/22 [History Last Taken 02/18/22 10:32] multivitamin 1 tab PO DAILY supplement 02/19/22 [History Last Taken 02/18/22 10:31] lidocaine 5 % topical patch 2 patch topical DAILY 30 days #60 ea 04/01/22 [Rx Last Taken Unknown] lorazepam 0.5 mg tablet 0.5 mg PO QHS PRN PRN Anxiety/Restlessness/Sleep 7 days #7 tabs 04/01/22 [Rx Last Taken Unknown] nadolol 20 mg tablet 5 mg PO DAILY 30 days #8 tabs 04/01/22 [Rx Last Taken Unknown] polysaccharide iron complex 150 mg iron capsule (Ferrex) 150 mg PO DAILY 30 days #30 caps 04/01/22 [Rx Last Taken Unknown] tizanidine 2 mg tablet 4 mg PO BID 30 days #120 tabs 04/01/22 [Rx Last Taken Unknown] tramadol 50 mg tablet 50 mg PO Q6H PRN PRN Pain Score 1-10 7 days #28 tabs 04/01/22 [Rx Last Taken Unknown] Allergy/AdvReac Type Severity Reaction Status Date / Time acetaminophen AdvReac Other Verified 04/13/22 13:07 oxycodone AdvReac hallucinati Verified 04/13/22 13:07 ons Family History Daughter Heart disease valve replacement/chf Diabetes Mother Thyroid disorder Surgical History Biventricular ICD (implantable cardioverter-defibrillator) in place (10/12/19) H/O excision of tumor of brain meninges (2011) History of arthroplasty of right hip History of cardiac catheterization History of cardioversion (05/05/20) History of left heart catheterization (08/31/19) History of percutaneous coronary intervention (10/10/19) History of right and left heart catheterization History of right hip hemiarthroplasty History of tonsillectomy Social History household members: none Smoking Status: Former smoker how long ago did patient quit smokin years alcohol intake: never substance use type: does not use ROS ROS ED Constitutional Constitutional ED: Denies chills or fever(s) Eyes Eyes: Denies blurry vision or change in vision ENT ENT ED: Denies rhinorrhea or sore throat Cardiovascular Cardiovascular: Reports as per HPI Respiratory/Chest Respiratory/Chest: Reports dyspnea Gastrointestinal Gastrointestinal: Denies abdominal pain or constipation Genitourinary Genitourinary ED: Denies dysuria or hematuria Musculoskeletal Musculoskeletal: Denies myalgias Integumentary Denies abscess Neurologic Neurologic: Denies headache(s) or paresthesias Psychiatric Psychiatric: Denies anxiety or depression EXAM Physical Exam Const Vital Signs: 04/25/22 17:28 04/25/22 17:39 04/25/22 18:33 Temperature 96.9 F L Temperature Source Temporal Pulse Rate 70 70 Respiratory Rate 16 24 H Respiratory Effort Respiratory Depth Respiratory Pattern Blood Pressure 140/93 H 145/107 H Blood Pressure Mean 108 119 Pulse Ox 97 93 Oxygen Delivery Method Room Air Room Air Room Air Oxygen Flow Rate (L/min) 04/25/22 18:50 04/25/22 18:52 04/25/22 18:41 Temperature Temperature Source Pulse Rate 70 70 Respiratory Rate 18 20 H Respiratory Effort Respiratory Depth Respiratory Pattern Normal Blood Pressure 116/96 H Blood Pressure Mean 102 Pulse Ox 84 92 Oxygen Delivery Method Room Air Nasal Cannula Oxygen Flow Rate (L/min) 2 04/25/22 18:41 Temperature Temperature Source Pulse Rate Respiratory Rate 26 H Respiratory Effort Non-Labored Short of Breath Respiratory Depth Shallow Respiratory Pattern Tachypnea Blood Pressure Blood Pressure Mean Pulse Ox 96 Oxygen Delivery Method Nasal Cannula Oxygen Flow Rate (L/min) 2 Positive unkempt General Appearance ED: unkempt; Negative for pallor HEENT Reports dry mucous membranes normocephalic and atraumatic Mouth ED: Yes dry mucous membranes Mouth: dry mucous membranes Eyes PERRL and EOMs intact bilaterally General Eye ED: Negative for pale conjunctiva or scleral icterus Resp normal respiratory effort Effort and Inspection: Negative for respiratory distress Auscultation: wheezes throughout Cardio regular rate and regular rhythm Extremity normal to inspection General Extremety ED: Negative for edema or tenderness General Extremity: Negative for edema Neuro oriented x3 and CN's II-XII intact bilaterally Sensorium / Orientation: awake, alert, oriented to person, oriented to place and oriented to time Psych mental status grossly normal Appearance: unkempt Skin General Skin Exam: Negative for jaundice or pallor MDM MDM MDM Narrative Medical decision making narrative: Patient presenting with chest pain and shortness of breath for the last 4 to 5 days. He states this is increasing. EKG was obtained on arrival which shows a paced rhythm at 70 bpm on my interpretation. Chest x-ray on my interpretation shows no acute cardiopulmonary process and the radiologist does agree. CBC shows a leukocytosis, hemoglobin stable at 12.6. Platelets 167. Creatinine slightly increased at 1.67. Potassium slightly high at 5.2 however there is moderate hemolysis. High-sensitivity troponin is 100 to slightly higher than it was previously. Patient has known cardiomyopathy and this is not drastically changed. His BNP is 1203 however. His chest x-ray does not show any sign of CHF and he does not have any lower extremity edema. Throughout his stay he has been intermittently hypoxic into the 80s and does not wear home O2. Given all the abnormalities I think he needs to be admitted. He does feel little bit better after getting breathing treatments and Solu-Medrol. Impression: 1. Chest pain 2. Dyspnea 3. Hypoxia on 4. Acute kidney injury Lab Data Attestation: I reviewed the patient's lab results. Labs: Laboratory Results - last 24 hr 04/25/22 04/25/22 04/25/22 17:50 17:50 17:50 WBC 8.9 RBC 4.08 L Hgb 12.6 L Hct 40.2 MCV 98.5 H MCH 30.9 MCHC 31.3 L RDW Std Deviation 69.0 H RDW Coeff of Yonathan 18.8 H Plt Count 167 MPV 11.1 Immature Gran % (Auto) 0.700 Neut % (Auto) 86.2 H Lymph % (Auto) 3.0 L [place] % (Auto) 6.7 Eos % (Auto) 3.1 Baso % (Auto) 0.3 Absolute Neuts (auto) 7.7 Absolute Lymphs (auto) 0.27 L Nucleated RBC % 0 Differential Comment SCANNED Anisocytosis 2+ Microcytosis 1+ Macrocytosis 1+ Sodium 138 Potassium 5.2 H Chloride 106 Carbon Dioxide 26.0 Anion Gap 6 BUN 41 H Creatinine 1.67 H Estim Creat Clear Calc 41.75 Est GFR (MDRD) Af Amer 53 L Est GFR (MDRD) Non-Af 44 L BUN/Creatinine Ratio 24.6 H Glucose 228 H Calcium 9.1 Troponin I High Sens 100 H B-Natriuretic Peptide 1203.2 H Radiography Diagnostic Testing: Clinical Impression(s) from Imaging Studies Chest X-Ray 04/25/22 18:08 IMPRESSION: No active disease. Electronically Signed: Stanton Pratt MD at 18:44 EDT , Discharge Plan Triage Chief Complaint: Chest Pain Other Complaint: Shortness of Breath ED Provider: Joey Dee Dx/Rx/DC Orders Prescriptions: No Action tamsulosin 0.4 mg capsule 0.4 mg PO QHS Label Comments: TAKE 1 CAPSULE BY MOUTH ONCE DAILY AT BEDTIME bicalutamide [Casodex] 50 mg tablet 50 mg PO DAILY loratadine 10 mg capsule 10 mg PO DAILY topiramate 25 tablet 25 mg PO BID omeprazole 20 capsule,delayed release(DR/EC) 20 mg PO BID insulin glargine 100 UNIT/ML insulin pen 27 unit SQ QHS multivitamin Tablet 1 tab PO DAILY cyanocobalamin (vitamin B-12) [Vitamin B-12] 250 mcg Tablet 250 mcg PO DAILY Eliquis 5 mg tablet 5 mg PO BID nadolol 20 mg Tablet 5 mg PO DAILY 30 Days Qty: 8 0RF tizanidine 2 mg Tablet 4 mg PO BID 30 Days Qty: 120 0RF polysaccharide iron complex [Ferrex 150] 150 mg iron Capsule 150 mg PO DAILY 30 Days Qty: 30 0RF tramadol 50 mg Tablet 50 mg PO Q6H PRN PRN (Reason: Pain Score 1-10) 7 Days Qty: 28 0RF lorazepam 0.5 mg Tablet 0.5 mg PO QHS PRN PRN (Reason: Anxiety/Restlessness/Sleep) 7 Days Qty: 7 0RF lidocaine 5 % Adhesive Patch,Medicated 2 patch topical DAILY 30 Days Qty: 60 0RF Protocol: *Topical Application Instructions APPLICATION INSTRUCTIONS: right hip. one on each side of the incision. Primary Care Provider: Pratibha Canales Referrals: Pratibha Canales MD [Primary Care Provider] -
[2022-04-25 19:54] LABS: Reflex Troponin-HS? (from REC) Y
--- NOTE | 2022-04-25 20:03 | ED.RN ---
Patient is not a great historian of home medications. Next of Kin Bob called and she said she had a list at home but not with her right now. She will call up to PCU when she gets home to report list.
[2022-04-25 20:22] LABS: Troponin-I HS 100 pg/mL (3.0-78.0)
--- NOTE | 2022-04-25 20:34 | PCM.HP.STD ---
HPI - General General Date of Admission: 04/25/22 Date of Service: 04/25/22 Chief Complaint: Chest pain or shortness of breath HPI Narrative STEPH BAUMANN, is a 71 M who presents with chest pain and shortness of breath for the past few days. Presented emergency room for evaluation. Was noted to be hypoxic at 84%. Chest x-ray is unremarkable. Patient did receive Solu-Medrol as well as aerosols in the emergency room. X-ray was unremarkable. Patient was complaining of chest pain that was midsternal and worse with deep respirations. Troponins were elevated at 100. Patient does have known history of nonischemic cardiomyopathy. The hospital service was contacted for evaluation and admission. [facility] Medical History Ambulates with cane Anticoagulant long-term use Ascites Asthma Atherosclerosis of coronary artery of [place] heart without angina pectoris Atrial fibrillation and flutter Back pain Benign brain tumor Cholelithiasis Chronic combined systolic and diastolic CHF (congestive heart failure) Chronic kidney disease (CKD) Cirrhosis of liver Cirrhosis of liver with ascites CPAP (continuous positive airway pressure) dependence Diabetes Diabetes mellitus, type II Essential (primary) hypertension Former smoker History of atrial fibrillation History of CVA (cerebrovascular accident) History of ulceration Hyperlipidemia Injury of back Insulin dependent diabetes mellitus Longstanding persistent atrial fibrillation Non-rheumatic tricuspid valve insufficiency Nonischemic cardiomyopathy NSTEMI (non-ST elevated myocardial infarction) (10/09/19) ALBINO (obstructive sleep apnea) 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 Right inguinal hernia Right ventricular systolic dysfunction Secondary pulmonary arterial hypertension Seizure disorder Sleep apnea Stasis edema of both lower extremities Stroke/cerebrovascular accident Thyroid disease Wears glasses Home Medications insulin glargine 100 unit/mL (3 mL) subcutaneous pen 27 unit SQ QHS diabetes 10/30/18 [History Last Taken 01/30/19] tamsulosin 0.4 mg capsule 0.4 mg PO QHS urinary 05/08/21 [History Last Taken 02/18/22 10:31] bicalutamide 50 mg tablet (Casodex) 50 mg PO DAILY Check with primary doctor 12/10/21 [History Last Taken 02/18/22 10:32] loratadine 10 mg capsule 10 mg PO DAILY Allergies 12/10/21 [History Last Taken 02/18/22 10:32] apixaban 5 mg tablet (Eliquis) 5 mg PO BID Check with primary doctor 02/19/22 [History Last Taken 02/16/22 08:57] cyanocobalamin (vitamin B-12) 250 mcg tablet (Vitamin B-12) 250 mcg PO DAILY Supplement 02/19/22 [History Last Taken 02/18/22 10:32] multivitamin 1 tab PO DAILY supplement 02/19/22 [History Last Taken 02/18/22 10:31] lidocaine 5 % topical patch 2 patch topical DAILY 30 days #60 ea 04/01/22 [Rx Last Taken Unknown] tramadol 50 mg tablet 50 mg PO Q6H PRN PRN Pain Score 1-10 7 days #28 tabs 04/01/22 [Rx Last Taken Unknown] bumetanide 1 mg tablet 3 tab PO DAILY water pill 04/25/22 [History Last Taken Unknown] calcium 300 mg chewable tablet 300 mg PO DAILY supplement 04/25/22 [History Last Taken Unknown] nadolol 20 mg tablet 5 mg PO DAILY bp 04/25/22 [History Last Taken Unknown] polysaccharide iron complex 150 mg iron capsule (Ferrex) 150 mg PO DAILY supplement 04/25/22 [History Last Taken Unknown] spironolactone 25 mg tablet 1 tab PO DAILY waterpill 04/25/22 [History Last Taken Unknown] Allergy/AdvReac Type Severity Reaction Status Date / Time acetaminophen AdvReac Other Verified 04/25/22 20:40 oxycodone AdvReac hallucinati Verified 04/25/22 20:40 ons Family History Daughter Heart disease valve replacement/chf Diabetes Mother Thyroid disorder Surgical History Biventricular ICD (implantable cardioverter-defibrillator) in place (10/12/19) H/O excision of tumor of brain meninges (2011) History of arthroplasty of right hip History of cardiac catheterization History of cardioversion (05/05/20) History of left heart catheterization (08/31/19) History of percutaneous coronary intervention (10/10/19) History of right and left heart catheterization History of right hip hemiarthroplasty History of tonsillectomy Social History household members: none Smoking Status: Former smoker how long ago did patient quit smokin years alcohol intake: never substance use type: does not use ROS ROS Narrative States that his weight has gone up unclear amount recently. Does have lower extremity edema. All review of systems were negative except as mentioned above in the history of present illness and the other review of systems. Vital Signs Vital Signs Vital Signs: 04/25/22 17:28 04/25/22 17:39 04/25/22 18:33 Temperature 36.1 C L Temperature Source Temporal Pulse Rate 70 70 Respiratory Rate 16 24 H Respiratory Effort Respiratory Depth Respiratory Pattern Blood Pressure 140/93 H 145/107 H Blood Pressure Mean 108 119 Pulse Ox 97 93 Oxygen Delivery Method Room Air Room Air Room Air Oxygen Flow Rate (L/min) 04/25/22 18:50 04/25/22 18:52 04/25/22 18:41 Temperature Temperature Source Pulse Rate 70 70 Respiratory Rate 18 20 H Respiratory Effort Respiratory Depth Respiratory Pattern Normal Blood Pressure 116/96 H Blood Pressure Mean 102 Pulse Ox 84 92 Oxygen Delivery Method Room Air Nasal Cannula Oxygen Flow Rate (L/min) 2 04/25/22 18:41 04/25/22 20:04 Temperature 36.4 C L Temperature Source Temporal Pulse Rate 70 Respiratory Rate 26 H 18 Respiratory Effort Non-Labored Short of Breath Respiratory Depth Shallow Respiratory Pattern Tachypnea Blood Pressure 135/95 H Blood Pressure Mean 108 Pulse Ox 96 92 Oxygen Delivery Method Nasal Cannula Nasal Cannula Oxygen Flow Rate (L/min) 2 2 Weight Weight: 87.407 kg Body Mass Index (BMI) 28.4 Physical Exam Const alert and no apparent distress HEENT normocephalic, head/scalp atraumatic and hearing grossly normal bilaterally Eyes PERRL and EOMs intact bilaterally Neck no lymphadenopathy Resp normal respiratory effort and no retractions Resp Narrative: Faint crackles in the bases Cardio regular rate, regular rhythm, S1 normal heart sound and S2 normal heart sound GI normal to inspection, nondistended, normoactive bowel sounds, soft to palpation, non-tender and non-distended Extremity Extremity Narrative: Trace lower extremity edema Neuro Sensorium / Orientation: awake and alert Psych Psych Narrative: Flat affect Results Lab / Micro Data Attestation: I reviewed the patient's lab results. Result Diagrams: 04/25/22 17:50 04/25/22 17:50 Labs: Laboratory Results - last 24 hr 04/25/22 17:50: WBC 8.9, RBC 4.08 L, Hgb 12.6 L, Hct 40.2, MCV 98.5 H, MCH 30.9, MCHC 31.3 L, RDW Std Deviation 69.0 H, RDW Coeff of Yonathan 18.8 H, Plt Count 167, MPV 11.1, Immature Gran % (Auto) 0.700, Neut % (Auto) 86.2 H, Lymph % (Auto) 3.0 L, [place] % (Auto) 6.7, Eos % (Auto) 3.1, Baso % (Auto) 0.3, Absolute Neuts (auto) 7.7, Absolute Lymphs (auto) 0.27 L, Nucleated RBC % 0, Differential Comment SCANNED, Anisocytosis 2+, Microcytosis 1+, Macrocytosis 1+ 04/25/22 17:50: Sodium 138, Potassium 5.2 H, Chloride 106, Carbon Dioxide 26.0, Anion Gap 6, BUN 41 H, Creatinine 1.67 H, Estim Creat Clear Calc 41.75, Est GFR (MDRD) Af Amer 53 L, Est GFR (MDRD) Non-Af 44 L, BUN/Creatinine Ratio 24.6 H, Glucose 228 H, Calcium 9.1, Troponin I High Sens 100 H 04/25/22 17:50: B-Natriuretic Peptide 1203.2 H 04/25/22 20:00: Troponin I High Sens 100 H Micro: Microbiology 04/25/22 19:28 Nasal Secretion SARS-CoV-2 Antigen (Rapid) - Final EKG Initial EKG: Attestation: I personally reviewed and interpreted this EKG as follows: EKG Rhythm Intrepretation: Ventricular Paced Radiology Impression Chest X-Ray 04/25/22 18:08 IMPRESSION: No active disease. Electronically Signed: Stanton Pratt MD at 18:44 EDT , Assessment & Plan Assessment/Plan (1) Chest pain: PLAN: Atypical. Suspect musculoskeletal. Troponins are elevated the patient does have known history of his nonischemic cardiomyopathy. Check an echocardiogram. (2) Acute and chronic respiratory failure with hypoxia: PLAN: Wean oxygen as able. COVID-19 is negative Chest x-ray personally reviewed and showed no obvious infiltrate. (3) Acute heart failure with reduced ejection fraction and diastolic dysfunction: PLAN: Patient does have a known history of nonischemic cardiomyopathy on left heart catheterization from 2019. Echocardiogram from May 05, 2020 showed an EF of 20%. Will give patient a dose of IV Lasix and monitor. PLAN: Plan Elevated creatinine of 1.67 baseline ranges from 1.16-1.37. No need for renal replacement therapy Diabetes mellitus type 2: Continue with insulin glargine as well as sliding scale insulin Prostate cancer: Patient is complaining of urinary hesitancy. Check a bladder scan. Continue with tamsulosin. Resume Casodex upon discharge. Follow-up with Dr. Sal for radiation Cirrhosis: Per history. Patient denies having cirrhosis. Patient did have a CAT scan from November 19, 2021 did not comment on cirrhosis. Inguinal hernia: Patient to follow-up with surgery. Any surgeries currently on hold while patient is undergoing radiation treatments. Recommend GI follow-up Atrial fibrillation: Stable. Rate controlled. Continue anticoagulation with apixaban. COVID-19 vaccination status: Patient has been vaccinated for COVID-19 but has yet to receive the booster. CODE STATUS: Addressed with the patient. Patient wished to be full code. Charges/Coding Visit Charges Inpatient E&M: 25636 Init Hosp L3 OBSV E&M: 86050 Initial observation care L3
--- NOTE | 2022-04-25 20:50 | ECHOCS_ITS ---
Reason For Study: Chest pain Procedure This was a 2D Doppler, Color Flow transthoracic echocardiogram. The study was technically difficult. Patient scanned supine. Exam performed portable in patient room. Left Ventricle Mildly dilated left ventricle. The estimated ejection fraction is 20 %. Diastolic function is indeterminate. There is severe global hypokinesis of the left ventricle. Right Ventricle Moderately dilated right ventricle. ICD or pacer leads identified within the right ventricle. Moderate global right ventricular systolic dysfunction. Atria The left atrium is moderately enlarged. The right atrium is moderately enlarged. Mitral Valve Normal mitral valve. Mild (1+) eccentric mitral valve insufficiency. Tricuspid Valve Normal tricuspid valve. Mild (1+) tricuspid valve insufficiency. Pulmonary artery systolic pressure is 40 mmHg. Aortic Valve Trisinus/trileaflet aortic valve. Pulmonic Valve Normal pulmonic valve. Mild (1+) pulmonic valve insufficiency. Great Vessels Normal aortic root. The pulmonary artery is normal size. Normal inferior vena cava. Pericardium/Pleural Small pericardial effusion. Medication Diluted definity 3ml given slow IV push to enhance endocardial definition. MMode/2D Measurements & Calculations LVIDd: 5.7 cm IVSd: 1.2 cm Ao root diam: 3.6 cm LVIDs: 5.1 cm LVPWd: 1.0 cm RVDd: 5.3 cm FS: 10.0 % LAV(MOD-bp): 94.9 ml LVAd ap4: 47.8 cm2 LVAd ap2: 53.8 cm2 LAV(MOD-bp) Indexed: 47.6 ml/m2 LVLd ap4: 9.9 cm LVLd ap2: 10.5 cm LAV(MOD-sp2): 101.1 ml EDV(MOD-sp4): 194.0 ml EDV(MOD-sp2): 232.4 ml LAV(MOD-sp4): 86.3 ml EDV(sp4-el): 196.3 ml EDV(sp2-el): 234.6 ml LVAs ap4: 42.7 cm2 LVAs ap2: 49.1 cm2 LVLs ap4: 9.5 cm LVLs ap2: 10.6 cm ESV(MOD-sp4): 163.2 ml ESV(MOD-sp2): 192.1 ml ESV(sp4-el): 163.3 ml ESV(sp2-el): 192.9 ml EF(MOD-sp4): 15.9 % EF(MOD-sp2): 17.3 % EF(sp4-el): 16.8 % SV(MOD-sp4): 30.9 ml SV(MOD-sp2): 40.3 ml SV(sp4-el): 33.0 ml LA A4 area: 25.5 cm2 LA dimension(2D): 5.3 cm RA A4 area: 31.0 cm2 Doppler Measurements & Calculations MV E max yeison: 82.9 cm/sec Ao V2 max: 122.8 cm/sec LV V1 max: 90.1 cm/sec Ao max P.0 mmHg LV V1 max P.2 mmHg PA V2 max: 82.6 cm/sec TR max yeison: 282.3 cm/sec TR max P.1 mmHg ECHO/Echo Complete W/ Contrast Interpretation Summary Mildly dilated left ventricle. The estimated ejection fraction is 20 %. Diastolic function is indeterminate. There is severe global hypokinesis of the left ventricle. Moderately dilated right ventricle. The left atrium is moderately enlarged. The right atrium is moderately enlarged. Pulmonary artery systolic pressure is 40 mmHg. Contrast injection was performed. Compared to previous study, the left ventricu lar systolic function is the same.. Ordering Physician: Goldy Delatorre Referring Physician: Pratibha Canales M.D. Performed By: Liliana Sevilla RDCS
[2022-04-25] MEDS: Insulin Glargine-YFGN 100 UNIT/ML Pen 27 UNIT SC (21:34)
[2022-04-25] MEDS: Pantoprazole Sodium 20 MG Tablet PO (21:35)
[2022-04-25] MEDS: Furosemide 40 MG/4 ML Vial IV (21:35)
[2022-04-25] MEDS: Tamsulosin HCl 0.4 MG Capsule PO (21:35)
[2022-04-25] MEDS: 0.9% Saline Lock 10 ML Syringe IV (21:35)
[2022-04-25] MEDS: APIXABAN 5 MG TABLET PO (21:35)
[2022-04-25 21:46] LABS: Bedside Glucose 185 mg/dL (74-106)
--- NOTE | 2022-04-25 22:41 | EKG12_ITS ---
Test Reason : CP ADMIT Blood Pressure : / mmHG Vent. Rate : 070 BPM Atrial Rate : 066 BPM P-R Int : 000 ms QRS Dur : 160 ms QT Int : 504 ms P-R-T Axes : 000 217 061 degrees QTc Int : 544 ms Suspect arm lead reversal, interpretation assumes no reversal Atrial fibrillation Non-specific intra-ventricular conduction block Abnormal ECG When compared with ECG of 25-APR-2022 17:46, MANUAL COMPARISON REQUIRED, DATA IS UNCONFIRMED Confirmed by HOWARD BUSITLLO, BRADY ([id number]), production editor ISREAL HORTON ([id number]) on 04/27/2022 8:43:48 AM Referred By: Confirmed By:BRADY LAWRENCE MD
[2022-04-26] VITALS (11 sets, daily range): BP systolic 120–132; BP diastolic 77–94; PULSE 70–82; RESP 18; TEMP 35.9–36.6; O2SAT 96–100
[2022-04-26 00:51] LABS: Troponin-I HS 92 pg/mL (3.0-78.0)
[2022-04-26 06:29] LABS: Absolute Lymphocyte Count 0.22 X10^3/uL (0.83-4.51); Absolute Neutrophil Count 7.8 X10^3/uL (2.0-7.7); Basophil# 0.02 X10^3/uL; Basophil% 0.2 % (0-1); Eosinophil# 0.01 X10^3/uL; Eosinophils% 0.1 % (0-5); Hematocrit 39.1 % (40-54); Hemoglobin 12.1 g/dL (13.0-16.5); Lymphocyte # 0.22 X10^3/ul (0.83-4.51); Lymphocyte % 2.6 % (19-41); Mean Corp Hgb Conc 30.9 g/dL (32-36); Mean Corpuscular Volume 100.3 fL (80-94); Mean Platelet Vol. 11.5 fl (6.2-12.0); Monocyte# 0.16 X10^3/uL; Monocyte% 1.9 % (0-10); NRBC Flagged by Analyzer 0 % (0-5); Neutrophil # 7.82 X10^3/uL (2.7-7.7); Neutrophil % 94.1 % (47-70); POSITIVE DIFFERENTIAL YES; POSITIVE MORPHOLOGY YES; Platelet Count 154 K/mm3 (150-450); RBC Distribution Width CV 18.6 % (11.6-14.6); RBC Distribution Width SD 68.8 fl (35.1-43.9); White Blood Count 8.3 K/mm3 (4.4-11.0)
[2022-04-26 06:34] LABS: Differential Indicated SCAN CRITERIA MET
[2022-04-26 06:51] LABS: Bedside Glucose 149 mg/dL (74-106)
[2022-04-26 07:00] LABS: Differential Comment SCANNED
[2022-04-26 07:09] LABS: ALB/GLOB Ratio 0.7 RATIO (0.9-2.4); AST(SGOT) 19 U/L (15-37); Alanine Aminotransfer ALT/SGPT 31 U/L (16-61); Albumin, Serum 2.9 g/dL (3.2-5.0); Alkaline Phosphatase 211 U/L (45-117); Anion Gap 7 (5-15); BUN 40 mg/dL (7-18); BUN/Creat Ratio 26.8 RATIO (10-20); Calcium,Total 9.1 mg/dL (8.5-10.1); Chloride 105 mmol/L (98-107); Cholesterol 103 mg/dL (200); Creatinine, Serum 1.49 mg/dL (0.70-1.30); EST Glomerular Filtration Rate 50 mL/min (>60); Est Glom Filt Rate - Afr Amer 60 mL/min (>60); Estimated Creatinine Clearance 46.79 ml/min; Globulin 3.9 g/dL (2.2-4.2); Glucose 173 mg/dL (74-106); High Density Lipoprotein 29 mg/dL; Potassium 4.4 mmol/L (3.5-5.1); Protein, Total 6.8 g/dL (6.4-8.2); Sodium Level 140 mmol/L (136-145); Triglycerides 50 mg/dL; Very Low Density Lipoprotein 10 mg/dL (5-40)
[2022-04-26] MEDS: Nadolol 20 MG Tablet 5 MG PO (08:53)
[2022-04-26] MEDS: Pantoprazole Sodium 20 MG Tablet PO ×2 (08:53→23:23)
[2022-04-26] MEDS: Iron Polysaccharide Complex 150 MG CAPSULE PO (08:53)
[2022-04-26] MEDS: APIXABAN 5 MG TABLET PO ×2 (08:54→23:24)
[2022-04-26] MEDS: Lidocaine 5% Patch 2 PATCH TOPICAL (08:55)
[2022-04-26] MEDS: Furosemide 40 MG/4 ML Vial IV (10:37)
[2022-04-26] MEDS: 0.9% Saline Lock 10 ML Syringe IV (10:37)
[2022-04-26] MEDS: Spironolactone 25 MG Tablet PO (10:37)
[2022-04-26 11:50] LABS: Bedside Glucose 247 mg/dL (74-106)
[2022-04-26] MEDS: Insulin Lispro 100 UNIT/ML INSULN.PEN SC ×2 (11:53→17:00)
--- NOTE | 2022-04-26 15:41 | CASEMGMT ---
Addendum entered by Shantelle Fragoso 04/26/22 16:22: Per Dr. Addison, pt will now stay till tomorrow as he does not have a ride until tomorrow afternoon. [facility] [employer] is no longer running at this time. Call to [facility] to notify that pt will now d/c tomorrow, voices understanding. Derrick WINSTON CM Original Note: Pt is active with [facility] for PT. Rd at [facility] updated on pt OBS admission and pt d/cing today. Rd states they will re-eval whether pt needs nursing once home. Clinicals faxed to [facility]. Derrick WINSTON CM
--- NOTE | 2022-04-26 15:46 | PN.HOSP_ITS ---
Subjective Subjective Doing well, off of oxygen at rest. He did diurese very well with a dose of Lasix this morning, and his Aldactone was restarted. He is still little bit weak with ambulation and says that he feels short of breath when he walks Objective Data Objective Data Vital Signs: Vital Signs Temp Pulse Resp BP Pulse Ox 97.5 F L 70 18 120/77 98 04/26/22 15:10 04/26/22 15:10 04/26/22 15:10 04/26/22 15:10 04/26/22 15:10 Oxygen Flow Rate (L/min) 1 Oxygen Delivery Method Room Air Weight: 184 lb 8.43 oz Body Mass Index (BMI) 27.2 Intake & Output: Intake and Output for Last 24 Hours 04/25/22 04/26/22 04/27/22 03:59 03:59 03:59 Intake Total 50 / 50 480 / 480 Output Total 200 / 200 980 / 980 Balance -150 / -150 -500 / -500 Lab / Micro Data Result Diagrams: 04/26/22 05:55 04/26/22 05:55 Labs: Laboratory Results - last 24 hr 04/25/22 17:50: WBC 8.9, RBC 4.08 L, Hgb 12.6 L, Hct 40.2, MCV 98.5 H, MCH 30.9, MCHC 31.3 L, RDW Std Deviation 69.0 H, RDW Coeff of Yonathan 18.8 H, Plt Count 167, MPV 11.1, Immature Gran % (Auto) 0.700, Neut % (Auto) 86.2 H, Lymph % (Auto) 3.0 L, [place] % (Auto) 6.7, Eos % (Auto) 3.1, Baso % (Auto) 0.3, Absolute Neuts (auto) 7.7, Absolute Lymphs (auto) 0.27 L, Nucleated RBC % 0, Differential Comment SCANNED, Anisocytosis 2+, Microcytosis 1+, Macrocytosis 1+ 04/25/22 17:50: Sodium 138, Potassium 5.2 H, Chloride 106, Carbon Dioxide 26.0, Anion Gap 6, BUN 41 H, Creatinine 1.67 H, Estim Creat Clear Calc 41.75, Est GFR (MDRD) Af Amer 53 L, Est GFR (MDRD) Non-Af 44 L, BUN/Creatinine Ratio 24.6 H, Glucose 228 H, Calcium 9.1, Troponin I High Sens 100 H 04/25/22 17:50: B-Natriuretic Peptide 1203.2 H 04/25/22 20:00: Troponin I High Sens 100 H 04/25/22 21:32: POC Glucose 185 H 04/26/22 00:09: Troponin I High Sens 92 H 04/26/22 05:55: WBC 8.3, RBC 3.90 L, Hgb 12.1 L, Hct 39.1 L, MCV 100.3 H, MCH 31.0, MCHC 30.9 L, RDW Std Deviation 68.8 H, RDW Coeff of Yonathan 18.6 H, Plt Count 154, MPV 11.5, Immature Gran % (Auto) 1.100 H, Neut % (Auto) 94.1 H, Lymph % (Auto) 2.6 L, [place] % (Auto) 1.9, Eos % (Auto) 0.1, Baso % (Auto) 0.2, Absolute Neuts (auto) 7.8 H, Absolute Lymphs (auto) 0.22 L, Nucleated RBC % 0, Differential Comment SCANNED 04/26/22 05:55: Sodium 140, Potassium 4.4, Chloride 105, Carbon Dioxide 28.0, Anion Gap 7, BUN 40 H, Creatinine 1.49 H, Estim Creat Clear Calc 46.79, Est GFR (MDRD) Af Amer 60, Est GFR (MDRD) Non-Af 50 L, BUN/Creatinine Ratio 26.8 H, Glucose 173 H, Calcium 9.1, Total Bilirubin 1.00, AST 19, ALT 31, Alkaline Phosphatase 211 H, Total Protein 6.8, Albumin 2.9 L, Globulin 3.9, Albumin/Globulin Ratio 0.7 L, Triglycerides 50, Cholesterol 103, LDL Cholesterol 64, VLDL Cholesterol 10, HDL Cholesterol 29 L 04/26/22 06:34: POC Glucose 149 H 04/26/22 11:46: POC Glucose 247 H Micro: Microbiology 04/25/22 19:28 Nasal Secretion SARS-CoV-2 Antigen (Rapid) - Final Radiography Diagnostic Testing: Radiology Impression Chest X-Ray 04/25/22 18:08 IMPRESSION: No active disease. Electronically Signed: Stanton Pratt MD at 18:44 EDT , Echocardiogram 04/25/22 20:50 Interpretation Summary Mildly dilated left ventricle. The estimated ejection fraction is 20 %. Diastolic function is indeterminate. There is severe global hypokinesis of the left ventricle. Moderately dilated right ventricle. The left atrium is moderately enlarged. The right atrium is moderately enlarged. Pulmonary artery systolic pressure is 40 mmHg. Contrast injection was performed. Compared to previous study, the left ve ntricular systolic function is the same.. Ordering Physician: Goldy Delatorre Referring Physician: rPatibha Canales M.D. Performed By: Liliana Sevilla RDCS Physical Exam Const alert, oriented x3 and no apparent distress General Appearance: cooperative HEENT normocephalic and moist oral mucous membranes Eyes PERRL, EOMs intact bilaterally and conjunctivae normal Neck supple and no JVD Resp normal respiratory effort, no retractions and no use of accessory muscles Auscultation: diminished lung sounds; Negative for crackles, rales, rhonchi or wheezes Cardio regular rate, regular rhythm, S1 normal heart sound, S2 normal heart sound and no murmurs GI soft to palpation, non-tender and non-distended; Negative for hepatosplenomegaly Extremity no clubbing, cyanosis or edema Skin no rashes or lesions noted Neuro no focal motor deficits and no sensory deficits noted Psych affect normal Appearance: appropriate Assessment & Plan Assessment/Plan (1) Chest pain: (2) Acute and chronic respiratory failure with hypoxia: (3) Acute heart failure with reduced ejection fraction and diastolic dysfunction: PLAN: Plan 1. 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 Feeling better today after 2 doses of IV Lasix and restarting his Aldactone ? He did ambulate on room air however he was feeling short of breath and weak ? He was recently discharged from transitional care unit as he does not have any more Medicare days and does not want to go back ? Renal function is improved we will follow-up electrolytes in the morning ? Troponin trended downwards and he did have a normal cath indicating a nonischemic cardiomyopathy ? Repeat echo was unchanged from 2 years ago with an EF of 20% and RVSP of 40 mmHg 2. A. fib status post AICD/HTN/HLD/CAD status post thrombectomy/nonischemic cardiomyopathy ? Blood pressure are stable, will continue with his home medications ? Continue with statin ? Continue with Eliquis 3. IDDM 2 ? Can sinew with insulin ? Accu-Cheks at bedtime ? We will make adjustments as necessary 4. GERD ? Stable ? Continue with PPI 5. Seizure disorder ? Stable ? Appears to be off of his Topamax would recommend continue following with his neurologist 6. Prostate cancer ? Undergoing radiation treatment DVT: Eliquis Charges/Coding Visit Charges OBSV E&M: 34658 Subsequent observation care L2
--- NOTE | 2022-04-26 16:21 | CASEMGMT ---
This RN CM to room with BERNAL form, explanation done-pt voices understanding, and signs BERNAL form. Pt declines copy of BERNAL. Pt has IP vs OBS booklet at bedside. Pt voices no further questions/concerns/needs. SStaten RN CM
[2022-04-26 17:06] LABS: Bedside Glucose 216 mg/dL (74-106)
[2022-04-26] MEDS: Tamsulosin HCl 0.4 MG Capsule PO (23:23)
[2022-04-26] MEDS: Insulin Glargine-YFGN 100 UNIT/ML Pen 27 UNIT SC (23:29)
[2022-04-26 23:41] LABS: Bedside Glucose 195 mg/dL (74-106)
[2022-04-27] MEDS: 0.9% Saline Lock 10 ML Syringe IV (00:03)
[2022-04-27] MEDS: Morphine 4 MG/ML Syringe IV (00:03)
[2022-04-27 01:03] VITALS: PULSE 70; RESP 18
[2022-04-27] MEDS: Albuterol 2.5 MG/3 ML VIAL.NEB. INHALATION (01:03)
[2022-04-27 03:00] VITALS: PULSE 73
[2022-04-27 05:20] VITALS: BP 119/88; PULSE 70; RESP 16; TEMP 35.9; O2SAT 100
[2022-04-27 06:46] LABS: Bedside Glucose 80 mg/dL (74-106)
[2022-04-27 07:14] LABS: Anion Gap 7 (5-15); BUN 54 mg/dL (7-18); BUN/Creat Ratio 30.7 RATIO (10-20); Calcium,Total 8.9 mg/dL (8.5-10.1); Chloride 102 mmol/L (98-107); Creatinine, Serum 1.76 mg/dL (0.70-1.30); EST Glomerular Filtration Rate 41 mL/min (>60); Est Glom Filt Rate - Afr Amer 50 mL/min (>60); Estimated Creatinine Clearance 39.61 ml/min; Glucose 93 mg/dL (74-106); Potassium 4.5 mmol/L (3.5-5.1); Sodium Level 137 mmol/L (136-145)
[2022-04-27 07:24] VITALS: PULSE 72
[2022-04-27] MEDS: Iron Polysaccharide Complex 150 MG CAPSULE PO (09:08)
[2022-04-27] MEDS: Nadolol 20 MG Tablet 5 MG PO (09:08)
[2022-04-27] MEDS: Lidocaine 5% Patch 2 PATCH TOPICAL (09:08)
[2022-04-27] MEDS: APIXABAN 5 MG TABLET PO (09:08)
[2022-04-27] MEDS: Pantoprazole Sodium 20 MG Tablet PO (09:09)
--- NOTE | 2022-04-27 11:12 | DCINST_ITS ---
Discharge Instructions Diet Discharge Diet: 6 Cup Fluid Restriction and Carb Control Diet Activity Discharge Activity: Return to Normal Activity Dressing / Incision Call your doctor if you observe: Fever of 101 or Higher, Shortness of breath, Dizziness, Fainting spells, Swelling in the ankles, Chest pain and Increased palpitations (irregular heartbeat) Follow Up Care Test Results: Test results from this visit will be discussed in further detail at your follow- up appointment, if applicable. Discharge Plan Admission Admit Date/Time: 04/25/22 20:25 Attending Provider: Maximo Addison Primary Care Provider: Pratibha Canales Consulting Providers: Goldy Delatorre Instructions Additional Instructions / Restrictions: Follow-up with your PCP in 3 to 5 days for evaluation of your kidney function Discharge Orders/Prescriptions Prescriptions: Continued tamsulosin 0.4 mg capsule 0.4 mg PO QHS Label Comments: TAKE 1 CAPSULE BY MOUTH ONCE DAILY AT BEDTIME bicalutamide [Casodex] 50 mg tablet 50 mg PO DAILY loratadine 10 mg capsule 10 mg PO DAILY PRN (Reason: allergies) insulin glargine 100 UNIT/ML insulin pen 27 unit SQ QHS multivitamin Tablet 1 tab PO DAILY cyanocobalamin (vitamin B-12) [Vitamin B-12] 250 mcg Tablet 250 mcg PO DAILY Eliquis 5 mg tablet 5 mg PO BID tramadol 50 mg Tablet 50 mg PO Q6H PRN PRN (Reason: Pain Score 1-10) 7 Days Qty: 28 0RF lidocaine 5 % Adhesive Patch,Medicated 2 patch topical DAILY 30 Days Qty: 60 0RF Protocol: *Topical Application Instructions APPLICATION INSTRUCTIONS: right hip. one on each side of the incision. calcium 300 mg Tablet,Chewable 300 mg PO DAILY polysaccharide iron complex [Ferrex 150] 150 mg iron capsule 150 mg PO DAILY nadolol 20 mg tablet 5 mg PO DAILY Held spironolactone 25 mg tablet 1 tab PO DAILY Hold Instructions: Resume on 04/29/22. Label Comments: TAKE 1 TABLET BY MOUTH EVERY DAY bumetanide 1 mg tablet 3 tab PO DAILY Hold Instructions: Resume on 04/29/22. Label Comments: TAKE 3 TABLETS BY MOUTH ONCE DAILY Referrals / Follow Up: Pratibha Canales MD [Primary Care Provider] - Within 1 Week Disposition Disposition (needs filled in before D/C Order can be placed): Home, Self Care
--- NOTE | 2022-04-27 11:17 | DS.PCM_ITS ---
Providers Date of Admission: 04/25/22 Primary Care Physician: Dr. Pratibha Canales MD Reason For Visit: CHEST PAIN, HYPOXIA Diagnosis Discharge Diagnosis (1) Chest pain: Status: Acute Code(s): R07.9 - Chest pain, unspecified (2) Acute and chronic respiratory failure with hypoxia: Status: Chronic Code(s): J96.21 - Acute and chronic respiratory failure with hypoxia (3) Acute heart failure with reduced ejection fraction and diastolic dysfunction: Status: Acute Code(s): I50.41 - Acute combined systolic (congestive) and diastolic (congestive) heart failure Medications at Discharge Home Medications insulin glargine 100 unit/mL (3 mL) subcutaneous pen 27 unit SQ QHS diabetes 10/30/18 tamsulosin 0.4 mg capsule 0.4 mg PO QHS urinary 05/08/21 bicalutamide 50 mg tablet (Casodex) 50 mg PO DAILY prostate 12/10/21 loratadine 10 mg capsule 10 mg PO DAILY PRN allergies 12/10/21 apixaban 5 mg tablet (Eliquis) 5 mg PO BID blood thinner 02/19/22 cyanocobalamin (vitamin B-12) 250 mcg tablet (Vitamin B-12) 250 mcg PO DAILY Supplement 02/19/22 multivitamin 1 tab PO DAILY supplement 02/19/22 lidocaine 5 % topical patch 2 patch topical DAILY 30 days #60 ea 04/01/22 tramadol 50 mg tablet 50 mg PO Q6H PRN PRN Pain Score 1-10 7 days #28 tabs 04/01/22 bumetanide 1 mg tablet 3 tab PO DAILY water pill 04/25/22 calcium 300 mg chewable tablet 300 mg PO DAILY supplement 04/25/22 nadolol 20 mg tablet 5 mg PO DAILY bp 04/25/22 polysaccharide iron complex 150 mg iron capsule (Ferrex) 150 mg PO DAILY supplement 04/25/22 spironolactone 25 mg tablet 1 tab PO DAILY waterpill 04/25/22 Hospital Course Operations None Procedures 2-D Echocardiogram Summary of Care Provided Minutes Spent on Discharge: 39 Hospital Course: Per HPI: STEPH BAUMANN is a 71 M who presents with chest pain and shortness of breath for the past few days.? Presented emergency room for evaluation.? Was noted to be hypoxic at 84%.? Chest x-ray is unremarkable.? Patient did receive Solu-Medrol as well as aerosols in the emergency room.? X-ray was unremarkable.? Patient was complaining of chest pain that was midsternal and worse with deep respirations.? Troponins were elevated at 100.? Patient does have known history of nonischemic cardiomyopathy.? The hospital service was contacted for evaluation and admission. Hospital Course: 1. Chest pain and shortness of breath with acute on chronic hypoxic respiratory failure due to acute on chronic systolic CHF exacerbation with pulmonary hypertension?71-year-old male presented to the hospital with shortness of breath and acute hypoxia. He was found to be 84% on room air and placed on 2 L of oxy gen. He was given a dose of IV Lasix on admission as well as a dose yesterday. He was also started back on his Aldactone. He diuresed significantly and had resolution of his shortness of breath fairly quickly. He was still feeling some shortness of breath with ambulation yesterday. Echo was repeated and is about the same with an EF of 20% and RVSP of 40 mmHg. Today his creatinine had bumped a little bit however he was feeling okay and I discussed with him the possibility for discharge today he expressed understanding of the risk benefits of going home and is okay with going home today. He recently was discharged from skilled nursing and does not have any more SNF days for his insurance and he does not have the finances to pay [id number], he does have home health care established which he can resume on discharge. Given this bump in creatinine I do recommend that he hold off on his diuretic and Aldactone for another day and to restarted on 04/29/2022. 2. A. fib status post AICD, hypertension, hyperlipidemia, CAD status post thrombectomy, nonischemic cardiomyopathy, IDDM 2, GERD, seizure disorder, prostate cancer all chronic medical conditions which complicate his care. His home medications were continued as appropriate. Physical Exam Narrative Const alert, oriented x3 and no apparent distress General Appearance: cooperative HEENT normocephalic and moist oral mucous membranes Eyes PERRL, EOMs intact bilaterally and conjunctivae normal Neck supple and no JVD Resp normal respiratory effort, no retractions and no use of accessory muscles Auscultation: diminished lung sounds; Negative for crackles, rales, rhonchi or wheezes Cardio regular rate, regular rhythm, S1 normal heart sound, S2 normal heart sound and no murmurs GI soft to palpation, non-tender and non-distended; Negative for hepatosplenomegaly Extremity no clubbing, cyanosis or edema Skin no rashes or lesions noted Neuro no focal motor deficits and no sensory deficits noted Psych affect normal Appearance: appropriate Weight / BMI Weight Weight: 181 lb 14.102 oz Body Mass Index (BMI) 27.2 ABG / Lab / Microbiology Data Result Diagrams: 04/26/22 05:55 04/27/22 06:20 Laboratory: Laboratory Results - last 24 hr 04/26/22 11:46: POC Glucose 247 H 04/26/22 16:59: POC Glucose 216 H 04/26/22 23:28: POC Glucose 195 H 04/27/22 06:20: Sodium 137, Potassium 4.5, Chloride 102, Carbon Dioxide 28.0, Anion Gap 7, BUN 54 H, Creatinine 1.76 H, Estim Creat Clear Calc 39.61, Est GFR (MDRD) Af Amer 50 L, Est GFR (MDRD) Non-Af 41 L, BUN/Creatinine Ratio 30.7 H, Glucose 93, Calcium 8.9 04/27/22 06:41: POC Glucose 80 Microbiology: Microbiology 04/25/22 19:28 Nasal Secretion SARS-CoV-2 Antigen (Rapid) - Final Radiography Diagnostic Testing: Radiology Impression Echocardiogram 04/25/22 20:50 Interpretation Summary Mildly dilated left ventricle. The estimated ejection fraction is 20 %. Diastolic function is indeterminate. There is severe global hypokinesis of the left ventricle. Moderately dilated right ventricle. The left atrium is moderately enlarged. The right atrium is moderately enlarged. Pulmonary artery systolic pressure is 40 mmHg. Contrast injection was performed. Compared to previous study, the left ventricular systolic function is the same.. Ordering Physician: Goldy Delatorre Referring Physician: Pratibha Canales M.D. Performed By: Liliana Sevilla RDCS D/C Instructions Discharge Diet: 6 Cup Fluid Restriction and Carb Control Diet Call your doctor if you observe: Fever of 101 or Higher, Shortness of breath, Dizziness, Fainting spells, Swelling in the ankles, Chest pain and Increased palpitations (irregular heartbeat) Meaningful Use Info Meaningful Use Diagnoses (Choose all that apply): None applicable Discharge Plan Admission Admit Date/Time: 04/25/22 20:25 Attending Provider: Maximo Addison Primary Care Provider: Pratibha Canales Consulting Providers: Goldy Delatorre Instructions Additional Instructions / Restrictions: Follow-up with your PCP in 3 to 5 days for evaluation of your kidney function Discharge Orders/Prescriptions Prescriptions: Continued tamsulosin 0.4 mg capsule 0.4 mg PO QHS Label Comments: TAKE 1 CAPSULE BY MOUTH ONCE DAILY AT BEDTIME bicalutamide [Casodex] 50 mg tablet 50 mg PO DAILY loratadine 10 mg capsule 10 mg PO DAILY PRN (Reason: allergies) insulin glargine 100 UNIT/ML insulin pen 27 unit SQ QHS multivitamin Tablet 1 tab PO DAILY cyanocobalamin (vitamin B-12) [Vitamin B-12] 250 mcg Tablet 250 mcg PO DAILY Eliquis 5 mg tablet 5 mg PO BID tramadol 50 mg Tablet 50 mg PO Q6H PRN PRN (Reason: Pain Score 1-10) 7 Days Qty: 28 0RF lidocaine 5 % Adhesive Patch,Medicated 2 patch topical DAILY 30 Days Qty: 60 0RF Protocol: *Topical Application Instructions APPLICATION INSTRUCTIONS: right hip. one on each side of the incision. calcium 300 mg Tablet,Chewable 300 mg PO DAILY polysaccharide iron complex [Ferrex 150] 150 mg iron capsule 150 mg PO DAILY nadolol 20 mg tablet 5 mg PO DAILY Held spironolactone 25 mg tablet 1 tab PO DAILY Hold Instructions: Resume on 04/29/22. Label Comments: TAKE 1 TABLET BY MOUTH EVERY DAY bumetanide 1 mg tablet 3 tab PO DAILY Hold Instructions: Resume on 04/29/22. Label Comments: TAKE 3 TABLETS BY MOUTH ONCE DAILY Referrals / Follow Up: Pratibha Canales MD [Primary Care Provider] - Within 1 Week Disposition Disposition (needs filled in before D/C Order can be placed): Home, Self Care Charges/Coding Visit Charges OBSV E&M: 73394 Observation care discharge
[2022-04-27 11:20] VITALS: BP 132/98; PULSE 70; RESP 16; TEMP 36.4; O2SAT 99
[2022-04-27 11:51] LABS: Bedside Glucose 85 mg/dL (74-106)
--- NOTE | 2022-04-27 12:12 | CASEMGMT ---
Addendum entered by Shantelle Fragoso 04/27/22 15:50: D/C summary faxed to [facility]. Derrick WINSTON CM Original Note: D/C instructions faxed to [facility]. Summary still pending. Derrick WINSTON CM
[2022-04-27 12:13] VITALS: PULSE 72
--- NOTE | 2022-04-27 13:48 | PHA.DC.MR ---
Pharmacy Service has performed discharge medication reconciliation for this patient. The patient's discharge medication list was reviewed for discrepancies and discrepancies were resolved. Home Medications insulin glargine 100 unit/mL (3 mL) subcutaneous pen 27 unit SQ QHS diabetes 10/30/18 tamsulosin 0.4 mg capsule 0.4 mg PO QHS urinary 05/08/21 bicalutamide 50 mg tablet (Casodex) 50 mg PO DAILY prostate 12/10/21 loratadine 10 mg capsule 10 mg PO DAILY PRN allergies 12/10/21 apixaban 5 mg tablet (Eliquis) 5 mg PO BID blood thinner 02/19/22 cyanocobalamin (vitamin B-12) 250 mcg tablet (Vitamin B-12) 250 mcg PO DAILY Supplement 02/19/22 multivitamin 1 tab PO DAILY supplement 02/19/22 lidocaine 5 % topical patch 2 patch topical DAILY 30 days #60 ea 04/01/22 tramadol 50 mg tablet 50 mg PO Q6H PRN PRN Pain Score 1-10 7 days #28 tabs 04/01/22 bumetanide 1 mg tablet 3 tab PO DAILY water pill 04/25/22 calcium 300 mg chewable tablet 300 mg PO DAILY supplement 04/25/22 nadolol 20 mg tablet 5 mg PO DAILY bp 04/25/22 polysaccharide iron complex 150 mg iron capsule (Ferrex) 150 mg PO DAILY supplement 04/25/22 spironolactone 25 mg tablet 1 tab PO DAILY waterpill 04/25/22
== END 2022-04-27 15:05 | disposition home or self-care (01) ==
LOC: ED 19:12 → PCU 20:35
PROVIDERS: Emergency Provider Student in an Organized Health Care Education/Training Program; PCP Internal Medicine; Visit Provider Family Medicine
DX: I13.0 Hypertensive heart and chronic kidney disease with heart failure and stage 1 through stage 4 chronic kidney disease, or unspecified chronic kidney disease (principal); N17.9 Acute kidney failure, unspecified; I42.8 Other cardiomyopathies; I50.43 Acute on chronic combined systolic (congestive) and diastolic (congestive) heart failure; I27.20 Pulmonary hypertension, unspecified; I27.21 Secondary pulmonary arterial hypertension; E11.22 Type 2 diabetes mellitus with diabetic chronic kidney disease; J96.21 Acute and chronic respiratory failure with hypoxia; I48.11 Longstanding persistent atrial fibrillation; G40.909 Epilepsy, unspecified, not intractable, without status epilepticus; I22.1 Subsequent ST elevation (STEMI) myocardial infarction of inferior wall; C61 Malignant neoplasm of prostate; Z79.4 Long term (current) use of insulin; N18.9 Chronic kidney disease, unspecified; E78.5 Hyperlipidemia, unspecified; K21.9 Gastro-esophageal reflux disease without esophagitis; J45.909 Unspecified asthma, uncomplicated; I25.10 Atherosclerotic heart disease of native coronary artery without angina pectoris; Z79.899 Other long term (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; Z87.891 Personal history of nicotine dependence; Z79.01 Long term (current) use of anticoagulants; I25.2 Old myocardial infarction; K40.90 Unilateral inguinal hernia, without obstruction or gangrene, not specified as recurrent; Z95.810 Presence of automatic (implantable) cardiac defibrillator
CPT/HCPCS: 36415; 71045; 80048; 80053; 80061; 82962; 83880; 84484; 85025; 87811; 93005; 93306; 94640; 96374; 96375; 96376; 97162; 97166; 99218; 99251; 99285; Q9957; A4216; C8929; G0378; G0463; J1940; J2405

== ENCOUNTER 2022-04-30 02:21 | Emergency (ER) | payer MEDICARE, OTHER, SELFPAY ==
[2022-04-30 02:21] VITALS: BP 125/81; PULSE 70; RESP 15; TEMP 36.4; O2SAT 98; BMI 27.7
--- NOTE | 2022-04-30 02:25 | EKG12_ITS ---
Test Reason : DYSRHYTHMIA Blood Pressure : / mmHG Vent. Rate : 070 BPM Atrial Rate : 107 BPM P-R Int : 000 ms QRS Dur : 164 ms QT Int : 488 ms P-R-T Axes : 000 202 073 degrees QTc Int : 527 ms Ventricular-paced rhythm Biventricular pacemaker detected Abnormal ECG Confirmed by TASIA BUSTILLO, JONNATHAN ([id number]), film or videotape editor ISREAL HORTON ([id number]) on 05/04/2022 8:00:15 AM Referred By: MARTIN Confirmed By:JONNATHAN DOZIER MD
--- NOTE | 2022-04-30 02:54 | RAD_ITS ---
STUDY: X-RAY CHEST REASON FOR EXAM: Male, 71 years old. dyspnea TECHNIQUE: Single AP portable view of the chest. COMPARISON: 04/25/2022 FINDINGS: The lungs are clear and expanded. There is no demonstrated pleural abnormality. Stable mild cardiomegaly with stable left chest wall pacing device. Normal mediastinum and ashly. Normal visualized pulmonary arteries. Normal visualized aortic arch and descending thoracic aorta. Normal visualized thoracic spine. Normal visualized ribs, clavicles, and shoulders. There is no demonstrated abnormality of the visualized soft tissue structures of the upper abdomen. RAD/Chest 1 View (Portable) IMPRESSION: Normal x-ray examination of the chest. Electronically Signed: Delio Mcknight DO at 3:40 EDT ,
[2022-04-30 03:17] LABS: Absolute Lymphocyte Count 0.37 X10^3/uL (0.83-4.51); Absolute Neutrophil Count 7.3 X10^3/uL (2.0-7.7); Basophil# 0.04 X10^3/uL; Basophil% 0.5 % (0-1); Eosinophil# 0.31 X10^3/uL; Eosinophils% 3.6 % (0-5); Hematocrit 38.2 % (40-54); Lymphocyte # 0.37 X10^3/ul (0.83-4.51); Lymphocyte % 4.3 % (19-41); Mean Corp Hgb Conc 31.4 g/dL (32-36); Mean Corpuscular Hgb 30.8 pg (27.0-32.0); Mean Corpuscular Volume 98.2 fL (80-94); Mean Platelet Vol. 12.2 fl (6.2-12.0); Monocyte# 0.59 X10^3/uL; Monocyte% 6.8 % (0-10); NRBC Flagged by Analyzer 0 % (0-5); Neutrophil # 7.25 X10^3/uL (2.7-7.7); Neutrophil % 83.3 % (47-70); POSITIVE DIFFERENTIAL YES; POSITIVE MORPHOLOGY YES; Platelet Count 123 K/mm3 (150-450); RBC Distribution Width CV 18.3 % (11.6-14.6); RBC Distribution Width SD 66.2 fl (35.1-43.9); Red Blood Count 3.89 M/mm3 (4.6-6.2); White Blood Count 8.7 K/mm3 (4.4-11.0)
[2022-04-30 03:29] LABS: Differential Indicated SCAN CRITERIA MET
[2022-04-30 03:43] LABS: Anion Gap 5 (5-15); BUN 37 mg/dL (7-18); BUN/Creat Ratio 27.4 RATIO (10-20); Calcium,Total 8.7 mg/dL (8.5-10.1); Chloride 102 mmol/L (98-107); Creatinine, Serum 1.35 mg/dL (0.70-1.30); EST Glomerular Filtration Rate 56 mL/min (>60); Est Glom Filt Rate - Afr Amer 67 mL/min (>60); Estimated Creatinine Clearance 51.64 ml/min; Glucose 190 mg/dL (74-106); Magnesium 2.2 mg/dL (1.6-2.6); Potassium 4.3 mmol/L (3.5-5.1); Sodium Level 137 mmol/L (136-145)
[2022-04-30 04:04] LABS: BNP,B-Type NATRIURETIC PEPTIDE 674.3 pg/mL (0-100)
[2022-04-30 04:12] LABS: Anisocytosis 1+; Differential Comment SCANNED; Macrocytosis 1+
--- NOTE | 2022-04-30 04:39 | EX.ED.DYSGE1 ---
HPI History of Present Illness Chief Complaint: Shortness of Breath Narrative Narrative: Patient is a 71-year-old male with past medical history of nonischemic cardiomyopathy atrial fibrillation status post pacemaker and congestive heart failure. He states this evening he began feeling increased shortness of breath whenever he would lie down. He denies any fevers chills nausea or vomiting or chest pain associated with this. He denies any known sick contact. He states that with his symptoms and his past medical history he was concern for developing infection or fluid in the lungs and therefore comes in for evaluation [facility] Medical History Ambulates with cane Anticoagulant long-term use Ascites Asthma Atherosclerosis of coronary artery of [place] heart without angina pectoris Atrial fibrillation and flutter Back pain Benign brain tumor Cholelithiasis Chronic combined systolic and diastolic CHF (congestive heart failure) Chronic kidney disease (CKD) Cirrhosis of liver Cirrhosis of liver with ascites CPAP (continuous positive airway pressure) dependence Diabetes Diabetes mellitus, type II Essential (primary) hypertension Former smoker History of atrial fibrillation History of CVA (cerebrovascular accident) History of ulceration Hyperlipidemia Injury of back Insulin dependent diabetes mellitus Longstanding persistent atrial fibrillation Non-rheumatic tricuspid valve insufficiency Nonischemic cardiomyopathy NSTEMI (non-ST elevated myocardial infarction) (10/09/19) ALBINO (obstructive sleep apnea) 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 Right inguinal hernia Right ventricular systolic dysfunction Secondary pulmonary arterial hypertension Seizure disorder Sleep apnea Stasis edema of both lower extremities Stroke/cerebrovascular accident Thyroid disease Wears glasses Home Medications insulin glargine 100 unit/mL (3 mL) subcutaneous pen 27 unit SQ QHS diabetes 10/30/18 [History Last Taken 01/30/19] tamsulosin 0.4 mg capsule 0.4 mg PO QHS urinary 05/08/21 [History Last Taken 02/18/22 10:31] bicalutamide 50 mg tablet (Casodex) 50 mg PO DAILY prostate 12/10/21 [History Last Taken 02/18/22 10:32] loratadine 10 mg capsule 10 mg PO DAILY PRN allergies 12/10/21 [History Last Taken 02/18/22 10:32] apixaban 5 mg tablet (Eliquis) 5 mg PO BID blood thinner 02/19/22 [History Last Taken 02/16/22 08:57] cyanocobalamin (vitamin B-12) 250 mcg tablet (Vitamin B-12) 250 mcg PO DAILY Supplement 02/19/22 [History Last Taken 02/18/22 10:32] multivitamin 1 tab PO DAILY supplement 02/19/22 [History Last Taken 02/18/22 10:31] lidocaine 5 % topical patch 2 patch topical DAILY 30 days #60 ea 04/01/22 [Rx Last Taken Unknown] tramadol 50 mg tablet 50 mg PO Q6H PRN PRN Pain Score 1-10 7 days #28 tabs 04/01/22 [Rx Last Taken Unknown] bumetanide 1 mg tablet 3 tab PO DAILY water pill 04/25/22 [History Last Taken Unknown] calcium 300 mg chewable tablet 300 mg PO DAILY supplement 04/25/22 [History Last Taken Unknown] nadolol 20 mg tablet 5 mg PO DAILY bp 04/25/22 [History Last Taken Unknown] polysaccharide iron complex 150 mg iron capsule (Ferrex) 150 mg PO DAILY supplement 04/25/22 [History Last Taken Unknown] spironolactone 25 mg tablet 1 tab PO DAILY waterpill 04/25/22 [History Last Taken Unknown] Allergy/AdvReac Type Severity Reaction Status Date / Time acetaminophen AdvReac Other Verified 04/30/22 02:23 oxycodone AdvReac hallucinati Verified 04/30/22 02:23 ons Family History Daughter Heart disease valve replacement/chf Diabetes Mother Thyroid disorder Surgical History Biventricular ICD (implantable cardioverter-defibrillator) in place (10/12/19) H/O excision of tumor of brain meninges (2011) History of arthroplasty of right hip History of cardiac catheterization History of cardioversion (05/05/20) History of left heart catheterization (08/31/19) History of percutaneous coronary intervention (10/10/19) History of right and left heart catheterization History of right hip hemiarthroplasty History of tonsillectomy Social History household members: none Smoking Status: Former smoker how long ago did patient quit smokin years alcohol intake: never substance use type: does not use ROS ROS ED Constitutional Constitutional ED: Denies chills or fever(s) ENT ENT ED: Denies sore throat Cardiovascular Cardiovascular: Denies chest pain Respiratory/Chest Respiratory/Chest: Reports dyspnea; Denies cough Gastrointestinal Gastrointestinal: Denies abdominal pain, diarrhea, nausea or vomiting Genitourinary Genitourinary ED: Denies dysuria Musculoskeletal Musculoskeletal: Reports other Details: Positive hip pain ; Denies myalgias Integumentary Denies rash Neurologic Neurologic: Denies headache(s) Hematologic/Lymphatic Hematologic/Lymphatic: Reports easy bleeding and easy bruising EXAM Physical Exam Const Vital Signs: 04/30/22 02:21 04/30/22 02:36 Temperature 97.6 F L Temperature Source Temporal Pulse Rate 70 Respiratory Rate 15 Respiratory Effort Normal Blood Pressure 125/81 H Blood Pressure Mean 95 Pulse Ox 98 Oxygen Delivery Method Room Air Positive well nourished and well developed General Appearance ED: well developed HEENT Reports moist mucous membranes HEENT Narrative: No tongue or lip swelling no oral lesions no airway edema or compromise Eyes PERRL and EOMs intact bilaterally General Eye ED: Negative for pale conjunctiva Neck supple and no JVD Resp normal respiratory effort Resp Narrative: Breath sounds are slightly diminished throughout with faint rhonchi in the bilateral bases but overall no signs of respiratory distress Cardio regular rate and regular rhythm GI non-tender and non-distended GI Narrative: No voluntary guarding or rigidity no pulsatile mass or fluid wave Auscultation: normoactive bowel sounds Palpation: soft Extremity normal to inspection Extremity Narrative: No asymmetric edema no pitting edema negative Homans' sign bilaterally Neuro oriented x3 and CN's II-XII intact bilaterally Sensorium / Orientation: alert Psych mental status grossly normal Skin no rashes or lesions noted MDM MDM MDM Narrative Medical decision making narrative: Patient presented to the ER with stable vitals his pulse ox was in the high 90s without any supplemental oxygen and he had no signs of respiratory distress. However based on his complex medical history I did elect to perform basic laboratory studies with a chest x-ray. Labs revealed no clinically significant findings and his proBNP is actually Haft from his previous value about 5 days ago. Chest x-ray also shows no fluid or signs of infection. The patient remained satting in the high 90s for his entire ER stay and did not have orthopnea with physical exam. Therefore at this time as patient does not have signs of infection or fluid overload and his pulse ox has been normal do not feel there is need for admission or further work-up and patient is safe for discharge Lab Data Attestation: I reviewed the patient's lab results. Labs: Laboratory Results - last 24 hr 04/30/22 04/30/22 04/30/22 02:40 02:40 02:40 WBC 8.7 RBC 3.89 L Hgb 12.0 L Hct 38.2 L MCV 98.2 H MCH 30.8 MCHC 31.4 L RDW Std Deviation 66.2 H RDW Coeff of Yonathan 18.3 H Plt Count 123 L MPV 12.2 H Immature Gran % (Auto) 1.500 H Neut % (Auto) 83.3 H Lymph % (Auto) 4.3 L [place] % (Auto) 6.8 Eos % (Auto) 3.6 Baso % (Auto) 0.5 Absolute Neuts (auto) 7.3 Absolute Lymphs (auto) 0.37 L Nucleated RBC % 0 Differential Comment SCANNED Anisocytosis 1+ Macrocytosis 1+ Sodium 137 Potassium 4.3 Chloride 102 Carbon Dioxide 30.0 Anion Gap 5 BUN 37 H Creatinine 1.35 H Estim Creat Clear Calc 51.64 Est GFR (MDRD) Af Amer 67 Est GFR (MDRD) Non-Af 56 L BUN/Creatinine Ratio 27.4 H Glucose 190 H Calcium 8.7 Magnesium 2.2 B-Natriuretic Peptide 674.3 H Radiography Diagnostic Testing: Clinical Impression(s) from Imaging Studies Chest X-Ray 04/30/22 02:54 IMPRESSION: Normal x-ray examination of the chest. Electronically Signed: Delio Mcknight DO at 3:40 EDT , Chest x-ray as interpreted by the emergency medicine physician reveals mild cardiomegaly without pleural effusion infiltrate or pneumothorax Discharge Plan Triage Chief Complaint: Shortness of Breath ED Provider: Rd Steele Dx/Rx/DC Orders Clinical Impression: Dyspnea, Chronic combined systolic and diastolic CHF (congestive heart failure) Instructions: ED Heart Failure, Congestive (CHF), ED Dyspnea Prescriptions: No Action tamsulosin 0.4 mg capsule 0.4 mg PO QHS Label Comments: TAKE 1 CAPSULE BY MOUTH ONCE DAILY AT BEDTIME bicalutamide [Casodex] 50 mg tablet 50 mg PO DAILY loratadine 10 mg capsule 10 mg PO DAILY PRN (Reason: allergies) insulin glargine 100 UNIT/ML insulin pen 27 unit SQ QHS multivitamin Tablet 1 tab PO DAILY cyanocobalamin (vitamin B-12) [Vitamin B-12] 250 mcg Tablet 250 mcg PO DAILY Eliquis 5 mg tablet 5 mg PO BID tramadol 50 mg Tablet 50 mg PO Q6H PRN PRN (Reason: Pain Score 1-10) 7 Days Qty: 28 0RF lidocaine 5 % Adhesive Patch,Medicated 2 patch topical DAILY 30 Days Qty: 60 0RF Protocol: *Topical Application Instructions APPLICATION INSTRUCTIONS: right hip. one on each side of the incision. spironolactone 25 mg tablet 1 tab PO DAILY Hold Instructions: Resume on 04/29/22. Label Comments: TAKE 1 TABLET BY MOUTH EVERY DAY bumetanide 1 mg tablet 3 tab PO DAILY Hold Instructions: Resume on 04/29/22. Label Comments: TAKE 3 TABLETS BY MOUTH ONCE DAILY calcium 300 mg Tablet,Chewable 300 mg PO DAILY polysaccharide iron complex [Ferrex 150] 150 mg iron capsule 150 mg PO DAILY nadolol 20 mg tablet 5 mg PO DAILY Primary Care Provider: Pratibha Canales Referrals: Pratibha Canales MD [Primary Care Provider] - Activity Restrictions/Additional Instructions: Please continue all of your normal medications as previously directed and return to the ER should you have any further concerns Disposition Disposition: Home, Self Care
[2022-04-30] MEDS: Morphine 4 MG/ML Syringe IV (04:48)
[2022-04-30] MEDS: Ondansetron 4 MG/2 ML Vial IV (04:48)
[2022-04-30 05:11] VITALS: BP 136/70; PULSE 72; RESP 22; O2SAT 100
== END 2022-04-30 05:12 | disposition home or self-care (01) ==
PROVIDERS: Emergency Provider Emergency Medicine; PCP Internal Medicine; Visit Provider Emergency Medicine
DX: I13.0 Hypertensive heart and chronic kidney disease with heart failure and stage 1 through stage 4 chronic kidney disease, or unspecified chronic kidney disease (principal); I50.42 Chronic combined systolic (congestive) and diastolic (congestive) heart failure; I42.8 Other cardiomyopathies; E11.22 Type 2 diabetes mellitus with diabetic chronic kidney disease; I48.91 Unspecified atrial fibrillation; G40.909 Epilepsy, unspecified, not intractable, without status epilepticus; Z79.4 Long term (current) use of insulin; N18.9 Chronic kidney disease, unspecified; E78.5 Hyperlipidemia, unspecified; I25.10 Atherosclerotic heart disease of native coronary artery without angina pectoris; I25.2 Old myocardial infarction; Z79.01 Long term (current) use of anticoagulants; Z95.0 Presence of cardiac pacemaker; Z87.891 Personal history of nicotine dependence
CPT/HCPCS: 71045; 80048; 83735; 83880; 85025; 93005; 96374; 96375; 99284; A4216; J2405

== ENCOUNTER → 2022-05-24 | Outpatient (CLI) | payer MEDICARE, OTHER, SELFPAY ==
[2022-05-24 19:38] LABS: ALB/GLOB Ratio 0.8 RATIO (0.9-2.4); AST(SGOT) 13 U/L (15-37); Alanine Aminotransfer ALT/SGPT 23 U/L (16-61); Albumin, Serum 3.5 g/dL (3.2-5.0); Alkaline Phosphatase 183 U/L (45-117); Anion Gap 7 (5-15); BUN 34 mg/dL (7-18); BUN/Creat Ratio 25.8 RATIO (10-20); Calcium,Total 9.5 mg/dL (8.5-10.1); Chloride 102 mmol/L (98-107); Creatinine, Serum 1.32 mg/dL (0.70-1.30); EST Glomerular Filtration Rate 57 mL/min (>60); Est Glom Filt Rate - Afr Amer 69 mL/min (>60); Globulin 4.3 g/dL (2.2-4.2); Glucose 250 mg/dL (74-106); Potassium 3.7 mmol/L (3.5-5.1); Protein, Total 7.8 g/dL (6.4-8.2); Sodium Level 137 mmol/L (136-145)
[2022-05-24 22:46] LABS: Vitamin B12 837 pg/mL (211-911)
[2022-05-31 07:07] LABS: Free Kappa Light Chains 66.1 mg/L (3.3-19.4); Free Lambda Light Chains 57.5 mg/L (5.7-26.3)
[2022-05-31 08:32] LABS: Vitamin B1, Thiamine 196.2 nmol/L (66.5-200.0)
== END | disposition home or self-care (01) ==
LOC: MTLAB 15:47
PROVIDERS: PCP Internal Medicine; Referring Provider Psychiatry & Neurology Neurology; Visit Provider Psychiatry & Neurology Neurology
DX: G62.9 Polyneuropathy, unspecified (principal); E78.5 Hyperlipidemia, unspecified
CPT/HCPCS: 36415; 80053; 82607; 82746; 83883; 84425; 84443

== ENCOUNTER 2022-06-07 13:37 | Emergency (ER) | payer MEDICARE, OTHER, SELFPAY ==
[2022-06-07 13:38] VITALS: BP 128/68; PULSE 70; RESP 16; TEMP 36.9; O2SAT 97; BMI 26.6
[2022-06-07 13:43] VITALS: BP 128/68; PULSE 70; RESP 16; O2SAT 97
--- NOTE | 2022-06-07 13:46 | ED.RN ---
per pt summary he was vaccinated for covid in february. barry xie, rn [id number]
--- NOTE | 2022-06-07 14:08 | EKG12_ITS ---
Test Reason : Blood Pressure : / mmHG Vent. Rate : 070 BPM Atrial Rate : 041 BPM P-R Int : 000 ms QRS Dur : 166 ms QT Int : 492 ms P-R-T Axes : 000 196 060 degrees QTc Int : 531 ms Ventricular-paced rhythm Biventricular pacemaker detected Abnormal ECG Confirmed by HOWARD BUSTILLO, BRADY ([id number]), graphic editor ISREAL HORTON ([id number]) on 06/08/2022 1:13:14 PM Referred By: Confirmed By:BRADY LAWRENCE MD
--- NOTE | 2022-06-07 14:11 | EX.ED.DYSGE1 ---
HPI History of Present Illness Chief Complaint: Alt LOC Narrative Narrative: 71-year-old male presenting via EMS with chief complaint of high blood sugars. He states his glucometer was reading high at home. He states he does take insulin but did not take anything to correct this. He states his blood sugars were normal yesterday. He states he does not have any other symptoms only except for he was unable to walk today. He states that he generally has weakness and has difficulty walking and walks with with a walker. He states he lives in apartment alone. He states he does not have any family locally. Apparently does have a care provider. Per EMS he appeared to be confused. [facility] Medical History Acute and chronic respiratory failure with hypoxia Acute heart failure with reduced ejection fraction and diastolic dysfunction Ambulates with cane Anticoagulant long-term use Ascites Asthma Atherosclerosis of coronary artery of [place] heart without angina pectoris Atrial fibrillation and flutter Back pain Benign brain tumor Cholelithiasis Chronic combined systolic and diastolic CHF (congestive heart failure) Chronic kidney disease (CKD) Cirrhosis of liver Cirrhosis of liver with ascites CPAP (continuous positive airway pressure) dependence Diabetes Diabetes mellitus, type II Essential (primary) hypertension Former smoker History of atrial fibrillation History of CVA (cerebrovascular accident) History of ulceration Hyperlipidemia Injury of back Insulin dependent diabetes mellitus Longstanding persistent atrial fibrillation Non-rheumatic tricuspid valve insufficiency Nonischemic cardiomyopathy NSTEMI (non-ST elevated myocardial infarction) (10/09/19) ALBINO (obstructive sleep apnea) 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 Right inguinal hernia Right ventricular systolic dysfunction Secondary pulmonary arterial hypertension Seizure disorder Sleep apnea Stasis edema of both lower extremities Stroke/cerebrovascular accident Thyroid disease Wears glasses Home Medications insulin glargine 100 unit/mL (3 mL) subcutaneous pen 27 unit SQ QHS diabetes 10/30/18 [History Last Taken 01/30/19] tamsulosin 0.4 mg capsule 0.4 mg PO QHS urinary 05/08/21 [History Last Taken 02/18/22 10:31] bicalutamide 50 mg tablet (Casodex) 50 mg PO DAILY prostate 12/10/21 [History Last Taken 02/18/22 10:32] loratadine 10 mg capsule 10 mg PO DAILY PRN allergies 12/10/21 [History Last Taken 02/18/22 10:32] cyanocobalamin (vitamin B-12) 250 mcg tablet (Vitamin B-12) 250 mcg PO DAILY Supplement 02/19/22 [History Last Taken 02/18/22 10:32] multivitamin 1 tab PO DAILY supplement 02/19/22 [History Last Taken 02/18/22 10:31] lidocaine 5 % topical patch 2 patch topical DAILY 30 days #60 ea 04/01/22 [Rx Last Taken Unknown] tramadol 50 mg tablet 50 mg PO Q6H PRN PRN Pain Score 1-10 7 days #28 tabs 04/01/22 [Rx Last Taken Unknown] bumetanide 1 mg tablet 3 tab PO DAILY water pill 04/25/22 [History Last Taken Unknown] calcium 300 mg chewable tablet 300 mg PO DAILY supplement 04/25/22 [History Last Taken Unknown] polysaccharide iron complex 150 mg iron capsule (Ferrex) 150 mg PO DAILY supplement 04/25/22 [History Last Taken Unknown] spironolactone 25 mg tablet 1 tab PO DAILY waterpill 04/25/22 [History Last Taken Unknown] apixaban 5 mg tablet (Eliquis) See Rx Instructions .Route .COMPLEX #60 TABLETS 05/19/22 [Rx Last Taken Unknown] nadolol 20 mg tablet 10 mg PO DAILY bp #45 tabs 05/19/22 [Rx Last Taken Unknown] baclofen 10 mg tablet 10 mg PO TID #90 tabs 05/24/22 [Rx Last Taken Unknown] Allergy/AdvReac Type Severity Reaction Status Date / Time acetaminophen AdvReac Other Verified 05/24/22 14:19 oxycodone AdvReac hallucinati Verified 05/24/22 14:19 ons Family History Daughter Heart disease valve replacement/chf Diabetes Mother Thyroid disorder Surgical History Biventricular ICD (implantable cardioverter-defibrillator) in place (10/12/19) H/O excision of tumor of brain meninges (2011) History of arthroplasty of right hip History of cardiac catheterization History of cardioversion (05/05/20) History of left heart catheterization (08/31/19) History of percutaneous coronary intervention (10/10/19) History of right and left heart catheterization History of right hip hemiarthroplasty History of tonsillectomy Social History household members: none Smoking Status: Former smoker how long ago did patient quit smokin years second hand exposure: No alcohol intake: never substance use type: does not use regla/adventist: None seatbelt use: always ROS ROS ED ROS Narrative Generalized weakness Constitutional Constitutional ED: Denies chills or fever(s) Eyes Eyes: Denies change in vision or diplopia ENT ENT ED: Denies rhinorrhea or sore throat Cardiovascular Cardiovascular: Denies chest pain or palpitations Respiratory/Chest Respiratory/Chest: Denies cough or dyspnea Gastrointestinal Gastrointestinal: Denies abdominal pain, constipation, diarrhea, melena, nausea or vomiting Genitourinary Genitourinary ED: Denies dysuria or hematuria Musculoskeletal Musculoskeletal: Denies arthralgias, myalgias or neck pain Integumentary Denies Abrasions or rash Neurologic Neurologic: Reports headache(s); Denies paresthesias Psychiatric Psychiatric: Denies anxiety or depression EXAM Physical Exam Const Vital Signs: 06/07/22 13:38 06/07/22 13:43 06/07/22 15:51 Temperature 98.5 F Temperature Source Oral Pulse Rate 70 70 70 Respiratory Rate 16 16 15 Blood Pressure 128/68 H 128/68 H 132/74 H Blood Pressure Mean 88 88 93 Pulse Ox 97 97 98 Oxygen Delivery Method Room Air Room Air Room Air 06/07/22 17:48 Temperature Temperature Source Pulse Rate 70 Respiratory Rate 16 Blood Pressure 126/71 H Blood Pressure Mean 89 Pulse Ox 99 Oxygen Delivery Method Room Air Positive well nourished General Appearance ED: NAD; Negative for pallor HEENT Reports moist mucous membranes Eyes PERRL and EOMs intact bilaterally General Eye ED: Negative for pale conjunctiva or scleral icterus Neck no lymphadenopathy Chest Wall inspection of chest normal and palpation of chest normal Resp normal respiratory effort and clear to auscultation bilaterally Cardio regular rate and regular rhythm GI normal to inspection, nondistended, normoactive bowel sounds Extremity normal to inspection Neuro CN's II-XII intact bilaterally Neuro Narrative: Alert to self and to year. He does not know the day of the week or the month. Sensorium / Orientation: alert Skin no rashes or lesions noted General Skin Exam: Negative for jaundice or pallor MDM MDM MDM Narrative Medical decision making narrative: Patient seen and evaluated on arrival. He does appear to be alert and awake and talking. No evidence of stroke. He is moving all 4 extremities. No focal neurologic deficits or lateralizing signs or symptoms. His confusion does seem consistent with his history. I spoke with his POA and she states she is at baseline. He was sent in because of confusion he had with his caregiver. The patient's POA tells me that he drank 2 pops today and this is likely why his blood sugar went up. CBC today shows no leukocytosis. Hemoglobin hematocrit are stable. Platelets are within normal limits. Creatinine within the patient's baseline although slightly bumped. Electrolytes are normal. Glucose is elevated at 376 without anion gap. AST slightly elevated 40 and alkaline phosphatase elevated at 154 however his other LFTs are normal. High-sensitivity troponin is 90 which is what its been on his previous visits. BNP slightly elevated at 244.9 however this is decreased from his previous 640. Chest x-ray my interpretation shows no acute findings. Radiologist agree. EKG was obtained and shows a reticular paced rhythm at 70 bpm on my interpretation. Urinalysis negative for infection. Ammonia level within normal limits. Discussed all findings with the caregiver and she feels she can manage his blood sugar at home. She will stay with him tonight. Impression: 1. Altered mental status?resolved 2. Chronic kidney disease 3. Hyperglycemia Lab Data Labs: Laboratory Results - last 24 hr 06/07/22 06/07/22 06/07/22 14:14 14:14 14:14 WBC 7.6 RBC 4.26 L Hgb 13.1 Hct 39.8 L MCV 93.4 MCH 30.8 MCHC 32.9 RDW Std Deviation 50.3 H RDW Coeff of Yonathan 14.6 Plt Count MPV 12.1 H Immature Gran % (Auto) 1.000 H Neut % (Auto) 86.1 H Lymph % (Auto) 5.8 L [place] % (Auto) 6.0 Eos % (Auto) 0.7 Baso % (Auto) 0.4 Absolute Neuts (auto) 6.6 Absolute Lymphs (auto) 0.44 L Nucleated RBC % 0 Platelet Estimate SLT DEC Sodium 136 Potassium 4.5 Chloride 100 Carbon Dioxide 27.0 Anion Gap 9 BUN 34 H Creatinine 1.71 H Estim Creat Clear Calc 40.77 Est GFR (MDRD) Af Amer 51 L Est GFR (MDRD) Non-Af 42 L BUN/Creatinine Ratio 19.9 Glucose 376 H Calcium 10.4 H Total Bilirubin 0.80 Direct Bilirubin 0.19 AST 40 H ALT 23 Alkaline Phosphatase 154 H Ammonia Cancelled Troponin I High Sens 90 H B-Natriuretic Peptide 244.9 H Total Protein 8.3 H Albumin 3.6 Globulin 4.7 H Urine Color Urine Clarity Urine pH Ur Specific [place] Urine Protein Urine Glucose (UA) Urine Ketones Urine Occult Blood Urine Nitrite Urine Bilirubin Urine Urobilinogen Ur Leukocyte Esterase Urine RBC Urine WBC Ur Squamous Epith Cells Urine Bacteria Urine Mucus 06/07/22 06/07/22 14:33 16:43 WBC RBC Hgb Hct MCV MCH MCHC RDW Std Deviation RDW Coeff of Yonathan Plt Count MPV Immature Gran % (Auto) Neut % (Auto) Lymph % (Auto) [place] % (Auto) Eos % (Auto) Baso % (Auto) Absolute Neuts (auto) Absolute Lymphs (auto) Nucleated RBC % Platelet Estimate Sodium Potassium Chloride Carbon Dioxide Anion Gap BUN Creatinine Estim Creat Clear Calc Est GFR (MDRD) Af Amer Est GFR (MDRD) Non-Af BUN/Creatinine Ratio Glucose Calcium Total Bilirubin Direct Bilirubin AST ALT Alkaline Phosphatase Ammonia 14.0 Troponin I High Sens B-Natriuretic Peptide Total Protein Albumin Globulin Urine Color Yellow Urine Clarity Clear Urine pH 6.0 Ur Specific [place] 1.015 Urine Protein 15 H Urine Glucose (UA) 250 H Urine Ketones Negative Urine Occult Blood 150 H Urine Nitrite Negative Urine Bilirubin Negative Urine Urobilinogen Normal Ur Leukocyte Esterase Negative Urine RBC 0-5 SEEN Urine WBC 0-5 SEEN Ur Squamous Epith Cells 0-5 SEEN Urine Bacteria RARE Urine Mucus 0 SEEN Radiography Diagnostic Testing: Clinical Impression(s) from Imaging Studies Chest X-Ray 06/07/22 14:40 IMPRESSION: There are no acute findings. Electronically Signed: Raman Mccauley MD at 15:08 EDT , Discharge Plan Triage Chief Complaint: Alt LOC ED Provider: Joey Dee Dx/Rx/DC Orders Instructions: ED ALOC, ED Diabetic Hyperglycemia Prescriptions: No Action tamsulosin 0.4 mg capsule 0.4 mg PO QHS Label Comments: TAKE 1 CAPSULE BY MOUTH ONCE DAILY AT BEDTIME bicalutamide [Casodex] 50 mg tablet 50 mg PO DAILY loratadine 10 mg capsule 10 mg PO DAILY PRN (Reason: allergies) baclofen 10 mg tablet 10 mg PO TID Qty: 90 3RF insulin glargine 100 UNIT/ML insulin pen 27 unit SQ QHS multivitamin Tablet 1 tab PO DAILY cyanocobalamin (vitamin B-12) [Vitamin B-12] 250 mcg Tablet 250 mcg PO DAILY tramadol 50 mg Tablet 50 mg PO Q6H PRN PRN (Reason: Pain Score 1-10) 7 Days Qty: 28 0RF lidocaine 5 % Adhesive Patch,Medicated 2 patch topical DAILY 30 Days Qty: 60 0RF Protocol: *Topical Application Instructions APPLICATION INSTRUCTIONS: right hip. one on each side of the incision. spironolactone 25 mg tablet 1 tab PO DAILY Hold Instructions: Resume on 04/29/22. Label Comments: TAKE 1 TABLET BY MOUTH EVERY DAY bumetanide 1 mg tablet 3 tab PO DAILY Hold Instructions: Resume on 04/29/22. Label Comments: TAKE 3 TABLETS BY MOUTH ONCE DAILY calcium 300 mg Tablet,Chewable 300 mg PO DAILY polysaccharide iron complex [Ferrex 150] 150 mg iron capsule 150 mg PO DAILY Eliquis 5 mg tablet See Rx Instructions .ROUTE .COMPLEX Qty: 60 11RF Dose Instruction: TAKE ONE (1) TABLET BY MOUTH TWICE DAILY Rx Instructions: TAKE ONE (1) TABLET BY MOUTH TWICE DAILY nadolol 20 mg tablet 10 mg PO DAILY Qty: 45 3RF Primary Care Provider: Pratibha Canales Referrals: Pratibha Canales MD [Primary Care Provider] - Disposition Disposition: Home, Self Care
[2022-06-07 14:25] LABS: Absolute Lymphocyte Count 0.44 X10^3/uL (0.83-4.51); Absolute Neutrophil Count 6.6 X10^3/uL (2.0-7.7); Basophil# 0.03 X10^3/uL; Basophil% 0.4 % (0-1); Eosinophil# 0.05 X10^3/uL; Eosinophils% 0.7 % (0-5); Hematocrit 39.8 % (40-54); Hemoglobin 13.1 g/dL (13.0-16.5); Lymphocyte # 0.44 X10^3/ul (0.83-4.51); Lymphocyte % 5.8 % (19-41); Mean Corp Hgb Conc 32.9 g/dL (32-36); Mean Corpuscular Hgb 30.8 pg (27.0-32.0); Mean Corpuscular Volume 93.4 fL (80-94); Mean Platelet Vol. 12.1 fl (6.2-12.0); Monocyte# 0.46 X10^3/uL; NRBC Flagged by Analyzer 0 % (0-5); Neutrophil # 6.56 X10^3/uL (2.7-7.7); Neutrophil % 86.1 % (47-70); POSITIVE COUNT YES; POSITIVE DIFFERENTIAL YES; RBC Distribution Width CV 14.6 % (11.6-14.6); RBC Distribution Width SD 50.3 fl (35.1-43.9); Red Blood Count 4.26 M/mm3 (4.6-6.2); White Blood Count 7.6 K/mm3 (4.4-11.0)
--- NOTE | 2022-06-07 14:40 | RAD_ITS ---
STUDY: X-RAY CHEST REASON FOR EXAM: Male, 71 years old. weakness TECHNIQUE: XR Chest 1 View COMPARISON: 04.30.22 FINDINGS: There is no demonstrated pleural abnormality. There is a left sided pacemaker batter[place]ack. Normal size heart. Normal mediastinum and aslhy. Normal visualized pulmonary arteries. Normal visualized aortic arch and descending thoracic aorta. There are diffuse degenerative changes of the visualized thoracic spine. There is degenerative osteoarthritis of the bilateral shoulders. There is no demonstrated abnormality of the visualized soft tissue structures of the upper abdomen. RAD/Chest 1 View (Portable) IMPRESSION: There are no acute findings. Electronically Signed: Raman Mccauley MD at 15:08 EDT ,
[2022-06-07 14:44] LABS: AST(SGOT) 40 U/L (15-37); Alanine Aminotransfer ALT/SGPT 23 U/L (16-61); Albumin, Serum 3.6 g/dL (3.2-5.0); Alkaline Phosphatase 154 U/L (45-117); Anion Gap 9 (5-15); BUN 34 mg/dL (7-18); BUN/Creat Ratio 19.9 RATIO (10-20); Bilirubin, Direct 0.19 mg/dL (0.00-0.30); Calcium,Total 10.4 mg/dL (8.5-10.1); Chloride 100 mmol/L (98-107); Creatinine, Serum 1.71 mg/dL (0.70-1.30); EST Glomerular Filtration Rate 42 mL/min (>60); Est Glom Filt Rate - Afr Amer 51 mL/min (>60); Estimated Creatinine Clearance 40.77 ml/min; Globulin 4.7 g/dL (2.2-4.2); Glucose 376 mg/dL (74-106); Potassium 4.5 mmol/L (3.5-5.1); Protein, Total 8.3 g/dL (6.4-8.2); Sodium Level 136 mmol/L (136-145); Troponin-I HS 90 pg/mL (3.0-78.0)
[2022-06-07 14:53] LABS: Differential Indicated SCAN CRITERIA MET
[2022-06-07 14:54] LABS: Platelet Estimate SLT DEC (ADEQ)
[2022-06-07 14:57] LABS: BNP,B-Type NATRIURETIC PEPTIDE 244.9 pg/mL (0-100)
[2022-06-07 15:51] VITALS: BP 132/74; PULSE 70; RESP 15; O2SAT 98
[2022-06-07 16:48] LABS: Mucous, Urine 0 SEEN /hpf (<or=2+)
[2022-06-07 16:57] LABS: Color, Urine Yellow (Yellow); Glucose, Dipstick 250 mg/dl (Normal); Ketone-Dipstick Negative (Negative); Leukocyte Esterase-Dipstick Negative /ul (Negative); Nitrite-Dipstick Negative (Negative); Occult Blood-Urine 150 /ul (Negative); Protein-Dipstick 15 mg/dl (Negative); Specific Gravity, Urine 1.015 (1.002-1.030); Urine Bilirubin Dipstick Negative (Negative); Urine Clarity Clear (Clear); Urine Urobilinogen Normal (Normal)
[2022-06-07 17:43] LABS: Bacteria RARE /hpf (None Seen); Red Blood Cells-Urine 0-5 SEEN /hpf (0-5); Squamous Epithelial Cells - UA 0-5 SEEN /hpf (0-5); White Blood Cells 0-5 SEEN /hpf (0-5)
[2022-06-07 17:48] VITALS: BP 126/71; PULSE 70; RESP 16; O2SAT 99
[2022-06-07 18:45] VITALS: BP 111/65; PULSE 70; RESP 15; O2SAT 100
== END 2022-06-07 18:47 | disposition home or self-care (01) ==
PROVIDERS: Emergency Provider Student in an Organized Health Care Education/Training Program; PCP Internal Medicine; Visit Provider Student in an Organized Health Care Education/Training Program
DX: R41.82 Altered mental status, unspecified (principal); R41.0 Disorientation, unspecified; E11.65 Type 2 diabetes mellitus with hyperglycemia; I13.0 Hypertensive heart and chronic kidney disease with heart failure and stage 1 through stage 4 chronic kidney disease, or unspecified chronic kidney disease; I50.42 Chronic combined systolic (congestive) and diastolic (congestive) heart failure; I48.11 Longstanding persistent atrial fibrillation; G40.909 Epilepsy, unspecified, not intractable, without status epilepticus; I42.8 Other cardiomyopathies; E11.22 Type 2 diabetes mellitus with diabetic chronic kidney disease; I25.10 Atherosclerotic heart disease of native coronary artery without angina pectoris; E78.5 Hyperlipidemia, unspecified; N18.9 Chronic kidney disease, unspecified; I27.21 Secondary pulmonary arterial hypertension; R26.2 Difficulty in walking, not elsewhere classified; Z79.4 Long term (current) use of insulin; Z79.01 Long term (current) use of anticoagulants; Z79.899 Other long term (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; I25.2 Old myocardial infarction; Z87.891 Personal history of nicotine dependence; Z86.73 Personal history of transient ischemic attack (TIA), and cerebral infarction without residual deficits
CPT/HCPCS: 71045; 80048; 80076; 81001; 82140; 83880; 84484; 85025; 93005; 99283; A4216

== ENCOUNTER → 2022-07-21 | Outpatient (CLI) | payer MEDICARE, OTHER, SELFPAY ==
--- NOTE | 2022-07-21 12:39 | CT_ITS ---
STUDY: CT BRAIN WITHOUT CONTRAST REASON FOR EXAM: Male, 72 years old. 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 Individualized dose optimization techniques were used for this CT. COMPARISON: Comparison is made with prior study dated 02/10/2022. FINDINGS: Normal soft tissue structures. Prior right frontal craniotomy. Stable focal area of encephalomalacia involving the right posterior temporal parietal lobe secondary to prior ischemic change. There is also evidence of encephalomalacia in the deep upper right frontal lobe. The patient has a history of prior resection of a meningioma. There is mild cerebral atrophy with widening of the extra-axial spaces and ventricular dilatation. There are areas of decreased attenuation within the white matter tracts of the supratentorial brain, consistent with microvascular disease changes. There are small punctate calcifications of the basal ganglia which are seen in the aging brain as a normal variant. Normal brainstem. Normal cerebellum. There is no intracranial hemorrhage. There are no findings of an acute ischemic infarction. Atherosclerotic calcific plaques of the cavernous portions of the internal carotid arteries. Normal visualized paranasal sinuses. CT/Brain/Head without Contrast IMPRESSION: Chronic involutional changes of the brain. Stable appearance of the encephalomalacia in the right posterior temporoparietal lobes and deep right parietal and occipital lobes superiorly. Electronically Signed: Erik Sandoval MD at 13:36 EDT ,
--- NOTE | 2022-07-21 12:39 | CT_ITS ---
STUDY: CT LUMBAR SPINE WITHOUT CONTRAST REASON FOR EXAM: Male, 72 years old. Left leg weakness; history of prostate cancer RADIATION DOSAGE (If Supplied By Facility): CTDIvol = ( 17.05 ) mGy, DLP = ( 482.62 ) mGycm TECHNIQUE: The patient was scanned in a multi detector CT scanner. High resolution transaxial imaging was performed. Images were obtained from L1 to S1 level. Sagittal and coronal images were reconstructed. Individualized dose optimization techniques were used for this CT. COMPARISON: None FINDINGS: Normal lumbar lordosis. There is no substantial scoliosis. 40% loss of height of the superior endplate of the L2 vertebrae. L1-2: Normal endplates. Normal disc height and morphology. Normal bilateral facet joints. Normal central canal and bilateral lateral recesses. Normal bilateral intervertebral neural foramina. L2-3: Normal endplates. Normal disc height and morphology. Normal bilateral facet joints. Normal central canal and bilateral lateral recesses. Normal bilateral intervertebral neural foramina. L3-4: Mild degree of central canal stenosis secondary to a combination of hypertrophy of the ligamenta flava and facet joint osteoarthropathy. L4-5: Normal endplates. Normal disc height and morphology. Normal bilateral facet joints. Normal central canal and bilateral lateral recesses. Normal bilateral intervertebral neural foramina. L5-S1: Normal endplates. Normal disc height and morphology. Normal bilateral facet joints. Normal central canal and bilateral lateral recesses. Normal bilateral intervertebral neural foramina. Atherosclerotic calcification of the abdominal aorta. CT/Spine Lumbar without Contrast IMPRESSION: 40% loss of height of the superior endplate of the L2 vertebrae. Mild degree of central canal stenosis at the L3-L4 level secondary to a combination of hypertrophy of the ligamenta flava and facet joint osteoarthropathy. Electronically Signed: Erik Sandoval MD at 13:39 EDT ,
== END | disposition home or self-care (01) ==
LOC: CT 12:36
PROVIDERS: PCP Internal Medicine; Referring Provider Psychiatry & Neurology Neurology; Visit Provider Psychiatry & Neurology Neurology
DX: I67.9 Cerebrovascular disease, unspecified (principal); R29.898 Other symptoms and signs involving the musculoskeletal system
CPT/HCPCS: 70450; 72131

== ENCOUNTER → 2022-08-09 | Outpatient (CLI) | payer MEDICARE, OTHER, SELFPAY ==
[2022-08-12 13:08] LABS: Albumin 3.8 g/dL (2.9-4.4); Alpha-1-Globulins 0.3 g/dL (0.0-0.4); Alpha-2-Globulins 0.7 g/dL (0.4-1.0); Gamma Globulin 1.5 g/dL (0.4-1.8); Immunoglobulin A 152 mg/dL (61-437); Immunoglobulin G 1578 mg/dL (603-1613); Immunoglobulin M 37 mg/dL (20-172); PROEL- TOTAL PROTEIN 7.5 g/dL (6.0-8.5)
== END | disposition home or self-care (01) ==
LOC: MTLAB 15:58
PROVIDERS: PCP Internal Medicine; Referring Provider Psychiatry & Neurology Neurology; Visit Provider Psychiatry & Neurology Neurology
DX: G62.9 Polyneuropathy, unspecified (principal)
CPT/HCPCS: 36415; 82784; 84165; 86334; 86335

== ENCOUNTER → 2022-08-11 | Outpatient (CLI) | payer MEDICARE, OTHER, SELFPAY ==
--- NOTE | 2022-08-11 14:45 | NEURO ---
NCS and/or EMG Patient Report Ordering Doctor: Dwayne Horton DATE OF SERVICE: 08/11/22 Jase presents for electrodiagnostic testing of the lower limbs. He reports sharp, shooting pain in the right hip since having hip surgery in February 2022. He reports intermittent pain in the left foot. Electrodiagnostic findings right peroneal motor nerve measured at the tibialis anterior shows normal distal latency and amplitude with borderline reduction in conduction velocity. Tibial motor latency is prolonged bilaterally. Prolonged left peroneal motor latency with reduced amplitude. Prolonged sural latency is noted bilaterally. Prolonged right superficial peroneal response. Left medial plantar response is mildly prolonged. Right and left tibial F waves are prolonged. H reflex is normal bilaterally. Needle EMG testing of the lower limbs showed no evidence of denervation with normal motor unit action potentials. Electrodiagnostic impression: This is an abnormal study in the lower limbs 1. Electrodiagnostic findings are suggestive of peripheral polyneuropathy, with motor and sensory nerve involvement. 2. There is no electrodiagnostic evidence for lumbosacral radiculopathy or sciatic neuropathy.
== END | disposition home or self-care (01) ==
LOC: PSN 08:07
PROVIDERS: PCP Internal Medicine; Referring Provider Psychiatry & Neurology Neurology; Visit Provider Psychiatry & Neurology Neurology
DX: R29.898 Other symptoms and signs involving the musculoskeletal system (principal); G62.9 Polyneuropathy, unspecified; R26.9 Unspecified abnormalities of gait and mobility
CPT/HCPCS: 95886; 95913

== ENCOUNTER → 2022-10-21 | Outpatient (CLI) | payer MEDICARE, OTHER, SELFPAY ==
[2022-10-21 16:42] LABS: PSA,Total- Diagnostic < 0.01 ng/mL (0.0-4.0)
== END | disposition home or self-care (01) ==
LOC: LAB 15:36
PROVIDERS: PCP Internal Medicine; Visit Provider Registered Nurse
DX: C61 Malignant neoplasm of prostate (principal)
CPT/HCPCS: 36415; 84153

== ENCOUNTER → 2022-11-25 | Outpatient (CLI) | payer MEDICARE, OTHER, SELFPAY ==
--- NOTE | 2022-11-25 13:39 | CDU_ITS ---
Reason For Study: Hx R MCA infarct Rt. Velocities/BP Lt. Velocities/BP Prox CCA 65.5/14.5 cm/sec. Prox CCA 97.6/30.5 cm/sec. Mid CCA 50.4/18.2 cm/sec. Mid CCA 82.5/17.3 cm/sec. Dist CCA 31.5/8.8 cm/sec. Dist CCA 52.2/18.2 cm/sec. Prox ICA 27.3/7.2 cm/sec. Prox ICA 43.7/17.3 cm/sec. Mid ICA 36.9/15.1 cm/sec. Mid ICA 51.3/21.1 cm/sec. Dist ICA 50.0/16.8 cm/sec. Dist ICA 65.5/28.6 cm/sec. Rt. ICA/CCA = 1.0. Lt. ICA/CCA = .8. Prox ECA 33.3/6.0 cm/sec. Prox ECA 74.0/10.7 cm/sec. Rt. Vert. 43.0/14.2 cm/sec. Lt. Vert. 45.6/12.6 cm/sec. Right Extracranial There is intimal thickening but no significant atherosclerotic plaque noted in the right common carotid artery. There is heterogeneous, irregular atherosclerotic plaque noted in the right internal carotid artery. There is heterogeneous, irregular atherosclerotic plaque noted in the right external carotid artery. Antegrade flow is noted in the right vertebral artery. Heterogeneous area in the right thyroid mrasuring 2.1 x 2.65 cm. Area is nonvascular. Left Extracranial There is intimal thickening but no significant atherosclerotic plaque noted in the left common carotid artery. There is homogeneous, smooth atherosclerotic plaque noted in the left internal carotid artery. There is intimal thickening but no significant atherosclerotic plaque noted in the left external carotid artery. Antegrade flow is noted in the left vertebral artery. Procedure Carotid Duplex [id number]. This is a Carotid Duplex examination using B-mode, color flow and specral Doppler. The exam was diagnostic. Exam performed in department. VL/Carotid Duplex Ultrasound Interpretation Summary Mild calcific plaque of the proximal right internal carotid artery with less th an 50% stenosis Less than 50% stenosis right external carotid artery Complex solid cystic right thyroid nodule 2.18 x 2.23 cm with microcalcificatio ns. Clinical evaluation would be pertinent Smooth calcific plaque of the proximal left internal carotid artery with less t dudley 50% stenosis ' Less than 50% stenosis left external carotid artery Patent and antegrade vertebral arteries bilaterally Ordering Physician: Dwayne Horton Performed By: Jeremiah Bolanos, RVT
--- NOTE | 2022-11-25 13:39 | ART_ITS ---
Reason For Study: absent left pedal pulses, diminished right pedal pulses Procedure A bilateral lower extremity continuous wave Doppler with analog waveform analysis and ankle brachial indexes. Left Segmental Pressures Left brachial= 120mmHg. Left digit = 86 mmHg. PT and DP are noncompressible. The left posterior tibial artery waveforms are biphasic. The left dorsalis pedis waveforms are triphasic. Right Segmental Pressures Right brachial= 112mmHg. Right posterior tibial artery = 127mmHg. Right dorsalis pedis artery = 189mmHg. Right digit = 70 mmHg. The right dorsalis pedis waveforms are biphasic. The right posterior tibial artery waveforms are biphasic. Indices The right ankle brachial index by the posterior tibial artery is 1.06. The right ankle brachial index by the dorsalis pedis is 1.58. The right digital-brachial index is .58. The left digital- brachial index is .72. PT and DP are noncompressible. VL/Ankle Brachial Index Interpretation Summary Right PT and DP ankle-brachial index at rest normal at 1.06 and 1.58 [address] ly. Right PT and DP Doppler waveforms are biphasic suggesting moderate occlusive di sease Abnormal right digital brachial index of 0.58 Unable to calculate left PT and DP ankle-brachial indices secondary to noncompr essibility. Biphasic left posterior tibialis consistent with moderate disease while the man salis pedis is triphasic and more normal. Abnormal left digital brachial index of 0.72 Ordering Physician: Dwayne Horton Performed By: Jeremiah Bolanos RVT
== END | disposition home or self-care (01) ==
LOC: CVS 13:35
PROVIDERS: PCP Internal Medicine; Referring Provider Psychiatry & Neurology Neurology; Visit Provider Psychiatry & Neurology Neurology
DX: R09.89 Other specified symptoms and signs involving the circulatory and respiratory systems (principal); Z86.73 Personal history of transient ischemic attack (TIA), and cerebral infarction without residual deficits
CPT/HCPCS: 93880; 93922

== ENCOUNTER → 2023-01-06 | Outpatient (CLI) | payer MEDICARE, OTHER, SELFPAY ==
--- NOTE | 2023-01-06 12:45 | US_ITS ---
INDICATION: Thyroid nodule EXAMINATION: Ultrasound US Thyroid (eg thyroid, parathyroid, parotid) TECHNIQUE: Olsen scale and color doppler imaging was performed of the thyroid gland. COMPARISON: None. FINDINGS: RIGHT THYROID LOBE: 4.3 x 3.1 x 2.4 cm. Homogeneous echotexture with normal vascularity. [There is a complex multiseptated cystic mass at the mid thyroid level measuring 2.7 x 2.5 x 2.1 cm. LEFT THYROID LOBE: 4.4 x 1.5 x 1.8 cm. Homogeneous echotexture with normal vascularity. [There multiple small cysts at the mid portion and the lower pole measuring 3 to 5 mm. ISTHMUS: 4 mm. No thyroid nodules are present. US/Thyroid IMPRESSION: Large complex mass of the mid right thyroid. Multiple small left thyroid cysts. Electronically Signed: Segundo George DO at 23:54 EST ,
[2023-01-06 13:47] LABS: Free T3 2.5 pg/mL (2.18-3.98); T4 Free Direct 1.01 ng/dL (0.76-1.46); Thyroid Stim Hormone (TSH) 1.52 uIU/mL (0.358-3.74)
== END | disposition home or self-care (01) ==
LOC: US 12:28
PROVIDERS: PCP Internal Medicine; Referring Provider Psychiatry & Neurology Neurology; Visit Provider Psychiatry & Neurology Neurology
DX: E04.1 Nontoxic single thyroid nodule (principal)
CPT/HCPCS: 36415; 76536; 84439; 84443; 84481

== ENCOUNTER → 2023-01-27 | Outpatient (CLI) | payer MEDICARE, OTHER, SELFPAY ==
[2023-01-27 18:56] LABS: PSA,Total- Diagnostic < 0.01 ng/mL (0.0-4.0)
== END | disposition home or self-care (01) ==
LOC: LAB 15:50
PROVIDERS: PCP Internal Medicine; Visit Provider Registered Nurse
DX: C61 Malignant neoplasm of prostate (principal)
CPT/HCPCS: 36415; 84153

== ENCOUNTER 2023-04-10 12:45 | Observation (INO) | payer MEDICARE, OTHER, SELFPAY ==
[2023-04-10 12:46] VITALS: BP 118/80; PULSE 71; RESP 18; TEMP 36.1; O2SAT 97; BMI 28.6
--- NOTE | 2023-04-10 13:18 | EKG12_ITS ---
Test Reason : CONFUSION Blood Pressure : / mmHG Vent. Rate : 070 BPM Atrial Rate : 053 BPM P-R Int : 000 ms QRS Dur : 176 ms QT Int : 504 ms P-R-T Axes : 000 208 043 degrees QTc Int : 544 ms Ventricular-paced rhythm Biventricular pacemaker detected Abnormal ECG Confirmed by HOWARD BUSTILLO, BRADY ([id number]), editor continuity and script ISREAL HORTON ([id number]) on 04/11/2023 11:38:20 AM Referred By: Confirmed By:BRADY LAWRENCE MD
--- NOTE | 2023-04-10 13:18 | CT_ITS ---
EXAM: CT HEAD WITHOUT INTRAVENOUS CONTRAST CLINICAL INDICATION: weakness TECHNIQUE: Multiple axial images were obtained of the head without intravenous contrast. This CT exam was performed using one or more of the following dose reduction techniques: automated exposure control, adjustment of the mA and/or kV according to patient size, and/or use of iterative reconstruction technique. RADIATION DOSE: CTDIvol = 44.99 mGy, DLP = 846.73 mGy-cm COMPARISON: CT head without contrast 07/21/2022. FINDINGS: BRAIN AND EXTRA-AXIAL SPACES: Large old cortical-based ischemic infarct with cystic atrophy involving the right posterior temporal lobe, right central lobe and the posterior aspect of the right superior frontal gyrus. Small old ischemic infarct with focal atrophy and encephalomalacia in the left precentral gyrus. Old lacunar ischemic infarct in left thalamus is unchanged. No intra- or extra-axial hemorrhage. No intracranial mass or mass effect. Posterior fossa structures are unremarkable. Basal cisterns are patent. BONES/JOINTS: Unremarkable. No discrete lytic or blastic abnormalities. SINUSES: Unremarkable as visualized. Clear. MASTOID AIR CELLS: Unremarkable. Clear. ORBITS: Visualized globes, extraocular muscles, optic nerves and retrobulbar fat appear unremarkable. CT/Brain/Head without Contrast IMPRESSION: 1. No CT evidence of intracranial bleeding, acute ischemic infarct or acute intracranial abnormality. 2. Large old cortical-based cystic infarctions involving the posterior right temporal lobe, right central lobe and the posterior aspect of the right superior frontal gyrus. 3. Small old ischemic infarct with focal atrophy and encephalomalacia in the left precentral gyrus. 4. Old lacunar ischemic infarct in the left thalamus. 5. No interval change when compared to 07/21/2022. Electronically Signed: Victorino Darby MD at 13:54 EDT ,
--- NOTE | 2023-04-10 13:21 | EX.ED.DYSGE1 ---
HPI History of Present Illness Chief Complaint: Weakness Narrative Narrative: 72-year-old male past medical history of multiple medical problems including stroke, debility, chronic left sided weakness presents with right-sided weakness that has had for the last week. He states he feels dehydrated. He had vomiting within the last week but denies any fever or chills, no diarrhea, no abdominal pain. He presents via EMS wanting to make sure that he is not dehydrated. He denies any exacerbating or alleviating factors. He does have history of a pacemaker as well. [facility] Medical History Acute and chronic respiratory failure with hypoxia Acute heart failure with reduced ejection fraction and diastolic dysfunction Ambulates with cane Anticoagulant long-term use Ascites Asthma Atherosclerosis of coronary artery of [place] heart without angina pectoris Atrial fibrillation and flutter Back pain Benign brain tumor Cholelithiasis Chronic combined systolic and diastolic CHF (congestive heart failure) Chronic kidney disease (CKD) Cirrhosis of liver Cirrhosis of liver with ascites CPAP (continuous positive airway pressure) dependence Diabetes Diabetes mellitus, type II Essential (primary) hypertension Former smoker History of atrial fibrillation History of CVA (cerebrovascular accident) History of ulceration Hyperlipidemia Injury of back Insulin dependent diabetes mellitus Longstanding persistent atrial fibrillation Non-rheumatic tricuspid valve insufficiency Nonischemic cardiomyopathy NSTEMI (non-ST elevated myocardial infarction) (10/09/19) ALBINO (obstructive sleep apnea) 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 Right inguinal hernia Right ventricular systolic dysfunction Secondary pulmonary arterial hypertension Seizure disorder Sleep apnea Stasis edema of both lower extremities Stroke/cerebrovascular accident Thyroid disease Wears glasses Home Medications insulin glargine 100 unit/mL (3 mL) subcutaneous pen 27 unit SQ QHS diabetes 10/30/18 [History Last Taken 01/30/19] bicalutamide 50 mg tablet (Casodex) 50 mg PO DAILY prostate 12/10/21 [History Last Taken 02/18/22 10:32] loratadine 10 mg capsule 10 mg PO DAILY PRN allergies 12/10/21 [History Last Taken 02/18/22 10:32] cyanocobalamin (vitamin B-12) 250 mcg tablet (Vitamin B-12) 250 mcg PO DAILY Supplement 02/19/22 [History Last Taken 02/18/22 10:32] multivitamin 1 tab PO DAILY supplement 02/19/22 [History Last Taken 02/18/22 10:31] tramadol 50 mg tablet 50 mg PO Q6H PRN PRN Pain Score 1-10 7 days #28 tabs 04/01/22 [Rx Last Taken Unknown] bumetanide 1 mg tablet 3 tab PO DAILY water pill 04/25/22 [History Last Taken Unknown] calcium 300 mg chewable tablet 300 mg PO DAILY supplement 04/25/22 [History Last Taken Unknown] polysaccharide iron complex 150 mg iron capsule (Ferrex) 150 mg PO DAILY supplement 04/25/22 [History Last Taken Unknown] spironolactone 25 mg tablet 1 tab PO DAILY waterpill 04/25/22 [History Last Taken Unknown] apixaban 5 mg tablet (Eliquis) See Rx Instructions .Route .COMPLEX #60 TABLETS 05/19/22 [Rx Last Taken Unknown] lisinopril 40 mg tablet 40 mg PO DAILY 09/09/22 [History Last Taken Unknown] omeprazole 20 mg capsule,delayed release 20 mg PO DAILY 09/09/22 [History Last Taken Unknown] topiramate 25 mg tablet 25 mg PO BID 09/09/22 [History Last Taken Unknown] baclofen 20 mg tablet 20 mg PO TID #90 tabs 12/23/22 [Rx Last Taken Unknown] carbidopa 25 mg-levodopa 100 mg tablet 1 tab PO TID #90 tabs 12/23/22 [Rx Last Taken Unknown] carvedilol 6.25 mg tablet 6.25 mg PO BID This is a dose increase #180 tabs 03/10/23 [Rx Last Taken Unknown] Allergy/AdvReac Type Severity Reaction Status Date / Time acetaminophen AdvReac Other Verified 01/06/23 13:44 oxycodone AdvReac hallucinati Verified 01/06/23 13:44 ons Family History Daughter Heart disease valve replacement/chf Diabetes Mother Thyroid disorder Surgical History Biventricular ICD (implantable cardioverter-defibrillator) in place (10/12/19) H/O excision of tumor of brain meninges (2011) History of arthroplasty of right hip History of cardiac catheterization History of cardioversion (05/05/20) History of left heart catheterization (08/31/19) History of percutaneous coronary intervention (10/10/19) History of right and left heart catheterization History of right hip hemiarthroplasty History of tonsillectomy Social History household members: none Smoking Status: Former smoker how long ago did patient quit smokin years second hand exposure: No alcohol intake: never substance use type: does not use regla/baptism: None seatbelt use: always ROS ROS ED ROS Narrative Constitutional: No fever, no chills. Generalized to right-sided weakness. HEENT: No sore throat. No neck pain. No loss of vision. No rhinorrhea. Cardiovascular: No chest pain. No palpitations. No pedal edema. Respiratory: No cough, no shortness of breath. Abdominal: No abdominal pain. No nausea. No vomiting. Genitourinary: No dysuria. No hematuria. Musculoskeletal: No myalgias. No arthralgias. Neurologic: No headaches. No dizziness. No lightheadedness. History of stroke with chronic weakness. Skin: No rash. No change in color. Psychiatric: No depression. No anxiety. EXAM Physical Exam Narrative Exam Narrative: Afebrile. Vital signs noted. HEENT: Normocephalic. Atraumatic. PERRL, EOMI. Neck soft and supple. No point tenderness or step off. Cardiovascular: Regular rate and rhythm. No murmurs, rubs, or gallops appreciated. Respiratory: No tachypnea. Lungs clear to auscultation bilaterally. Gastrointestinal: Abdomen soft, nontender, with normoactive bowel sounds. No rebound or guarding. Neurological: Awake. Alert. Limited range of motion of bilateral upper and lower extremities, but able to move bilateral hands and feet/toes. Skin: No rash. Normal color. No pallor. Musculoskeletal: No pedal edema. Full range of motion extremities. Const Vital Signs: 04/10/23 12:46 04/10/23 14:43 Temperature 96.9 F L 97.1 F L Temperature Source Temporal Temporal Pulse Rate 71 74 Respiratory Rate 18 18 Blood Pressure 118/80 127/85 H Blood Pressure Mean 92 99 Pulse Ox 97 99 Oxygen Delivery Method Room Air Room Air MDM MDM MDM Narrative Medical decision making narrative: I reviewed the patient's EMR. He has history of stroke and Parkinson's along with seizure disorder, chronic cirrhosis. Comprehensive work-up will be pursued to look for signs of infection including urinary tract infection and pneumonia, however he denies any fevers or chills, cough or shortness of breath. He denies any dysuria or hematuria. I will check his CBC and CMP to look for anemia to see if he is indeed, dehydrated. He will be bolused normal saline 1 L intravenously. His vital signs show him to be afebrile and not tachycardic with a normal blood pressure. I am not concerned about sepsis. EKG was obtained and interpreted by myself which shows a ventricular paced rhythm at 70 bpm without ectopy or acute ST changes. No STEMI. I reviewed his laboratory work, he has a normal white count 9.3, hemoglobin stable at 13.3, hematocrit 40.0, platelet count normal at 155. Electrolyte panel was obtained and his sodium is normal at 139 with potassium normal at 4.0, chloride normal at 104. BUN is slightly elevated at 29 and his creatinine is at his baseline of 1.39. While his glucose is elevated at 216, he has a normal anion gap of 7, I am not concerned about diabetic ketoacidosis. CT of the brain was obtained and radiology report reviewed, and there is no significant interval change from previous, does show his old cystic strokes. Chest x-ray in 1 view shows on my individual interpretation that there is no pneumonia or pneumothorax. I do not feel antibiotics are indicated. I reviewed the radiology report which confirms my independent interpretation. He did require cath/straight cath specimen for urine which shows no evidence of infection or dehydration. I do not feel antibiotics are indicated. At this point in time, I am unsure as to the cause of his reported weakness, but I do feel that he can be discharged to follow-up with his primary care provider. I do not feel he requires observation from his negative work-up today. Return instructions to the emergency department were reviewed. Disposition is discharged home in stable condition. History & Record Review Discussion w/independent historian: Patient Additional record(s) reviewed:: Prior ED visit and Prior labs Lab Data Attestation: I reviewed the patient's lab results. Labs: Laboratory Results - last 24 hr 04/10/23 04/10/23 04/10/23 12:30 12:30 15:12 WBC 9.3 RBC 4.14 L Hgb 13.3 Hct 40.0 MCV 96.6 H MCH 32.1 H MCHC 33.3 RDW Std Deviation 48.4 H RDW Coeff of Yonathan 13.8 Plt Count 155 MPV 11.2 Immature Gran % (Auto) 0.600 Neut % (Auto) 85.5 H Lymph % (Auto) 5.4 L [place] % (Auto) 6.7 Eos % (Auto) 1.4 Baso % (Auto) 0.4 Absolute Neuts (auto) 8.0 H Absolute Lymphs (auto) 0.50 L Nucleated RBC % 0 Differential Comment COMMENT Sodium 139 Potassium 4.0 Chloride 104 Carbon Dioxide 28.0 Anion Gap 7 BUN 29 H Creatinine 1.39 H Estim Creat Clear Calc 49.45 Est GFR (MDRD) Af Amer 65 Est GFR (MDRD) Non-Af 54 L BUN/Creatinine Ratio 20.9 H Glucose 216 H Calcium 9.5 Total Bilirubin 0.90 AST 16 ALT 12 L Alkaline Phosphatase 133 H Total Protein 8.0 Albumin 4.0 Globulin 4.0 Albumin/Globulin Ratio 1.0 Urine Color Yellow Urine Clarity Clear Urine pH 6.0 Ur Specific [place] 1.015 Urine Protein Negative Urine Glucose (UA) Normal Urine Ketones Negative Urine Occult Blood Negative Urine Nitrite Negative Urine Bilirubin Negative Urine Urobilinogen Normal Ur Leukocyte Esterase Negative Urine RBC 0 SEEN Urine WBC 0 SEEN Ur Squamous Epith Cells 0 SEEN Urine Bacteria 0 SEEN Urine Mucus 0 SEEN Radiography Diagnostic Testing: Clinical Impression(s) from Imaging Studies Brain CT 04/10/23 13:18 IMPRESSION: 1. No CT evidence of intracranial bleeding, acute ischemic infarct or acute intracranial abnormality. 2. Large old cortical-based cystic infarctions involving the posterior right temporal lobe, right central lobe and the posterior aspect of the right superior frontal gyrus. 3. Small old ischemic infarct with focal atrophy and encephalomalacia in the left precentral gyrus. 4. Old lacunar ischemic infarct in the left thalamus. 5. No interval change when compared to 07/21/2022. Electronically Signed: Victorino Darby MD at 13:54 EDT , Chest X-Ray 04/10/23 13:26 IMPRESSION: 1. No acute findings in the chest. 2. No interval change when compared to 06/07/2022. Electronically Signed: Victorino Darby MD at 13:55 EDT , Discharge Plan Triage Chief Complaint: Weakness ED Provider: Victorino Badillo Dx/Rx/DC Orders Clinical Impression: Parkinson's disease, History of CVA (cerebrovascular accident), Debility, Weakness Instructions: ED Weakness (Uncertain Cause) Prescriptions: No Action bicalutamide [Casodex] 50 mg tablet 50 mg PO DAILY loratadine 10 mg capsule 10 mg PO DAILY PRN (Reason: allergies) topiramate 25 mg tablet 25 mg PO BID Rx Instructions: 2 tabs bid omeprazole 20 mg capsule,delayed release(DR/EC) 20 mg PO DAILY lisinopril 40 mg tablet 40 mg PO DAILY baclofen 20 mg tablet 20 mg PO TID Qty: 90 5RF carbidopa-levodopa 25-100 mg tablet 1 tab PO TID Qty: 90 5RF insulin glargine 100 UNIT/ML insulin pen 27 unit SQ QHS multivitamin Tablet 1 tab PO DAILY cyanocobalamin (vitamin B-12) [Vitamin B-12] 250 mcg Tablet 250 mcg PO DAILY tramadol 50 mg Tablet 50 mg PO Q6H PRN PRN (Reason: Pain Score 1-10) 7 Days Qty: 28 0RF spironolactone 25 mg tablet 1 tab PO DAILY Hold Instructions: Resume on 04/29/22. Label Comments: TAKE 1 TABLET BY MOUTH EVERY DAY bumetanide 1 mg tablet 3 tab PO DAILY Hold Instructions: Resume on 04/29/22. Label Comments: TAKE 3 TABLETS BY MOUTH ONCE DAILY calcium 300 mg Tablet,Chewable 300 mg PO DAILY polysaccharide iron complex [Ferrex 150] 150 mg iron capsule 150 mg PO DAILY Eliquis 5 mg tablet See Rx Instructions .ROUTE .COMPLEX Qty: 60 11RF Dose Instruction: TAKE ONE (1) TABLET BY MOUTH TWICE DAILY Rx Instructions: TAKE ONE (1) TABLET BY MOUTH TWICE DAILY carvedilol 6.25 mg tablet 6.25 mg PO BID Qty: 180 3RF Rx Instructions: must administer with a meal/food Primary Care Provider: Pratibha Canales Referrals: Pratibha Canales MD [Primary Care Provider] - As soon as possible Disposition Disposition: Home, Self Care
--- NOTE | 2023-04-10 13:26 | RAD_ITS ---
EXAM: XR CHEST, 1 VIEW CLINICAL INDICATION: cad TECHNIQUE: Frontal view of the chest. COMPARISON: 06/07/2022. FINDINGS: LUNGS AND PLEURAL SPACES: Unremarkable. No pneumothorax. No effusion. No suspicious infiltrates. HEART: Cardiomegaly is unchanged. Patient lead tips are unchanged. MEDIASTINUM: Central airways and mediastinal contour are unremarkable. BONES/JOINTS: Unremarkable. SOFT TISSUES: Unremarkable. RAD/Chest 1 View (Portable) IMPRESSION: 1. No acute findings in the chest. 2. No interval change when compared to 06/07/2022. Electronically Signed: Victorino Darby MD at 13:55 EDT ,
[2023-04-10] MEDS: 0.9% Normal Saline 1,000 ML 1000 ML IV (13:30)
[2023-04-10 13:34] LABS: Basophil# 0.04 X10^3/uL; Basophil% 0.4 % (0-1); Eosinophil# 0.13 X10^3/uL; Eosinophils% 1.4 % (0-5); Hemoglobin 13.3 g/dL (13.0-16.5); Lymphocyte % 5.4 % (19-41); Mean Corp Hgb Conc 33.3 g/dL (32-36); Mean Corpuscular Hgb 32.1 pg (27.0-32.0); Mean Corpuscular Volume 96.6 fL (80-94); Mean Platelet Vol. 11.2 fl (6.2-12.0); Monocyte# 0.62 X10^3/uL; Monocyte% 6.7 % (0-10); NRBC Flagged by Analyzer 0 % (0-5); Neutrophil # 7.96 X10^3/uL (2.7-7.7); Neutrophil % 85.5 % (47-70); POSITIVE DIFFERENTIAL YES; Platelet Count 155 K/mm3 (150-450); RBC Distribution Width CV 13.8 % (11.6-14.6); RBC Distribution Width SD 48.4 fl (35.1-43.9); Red Blood Count 4.14 M/mm3 (4.6-6.2); White Blood Count 9.3 K/mm3 (4.4-11.0)
[2023-04-10 13:35] LABS: Differential Indicated SCAN CRITERIA MET
[2023-04-10 13:49] LABS: AST(SGOT) 16 U/L (15-37); Alanine Aminotransfer ALT/SGPT 12 U/L (16-61); Alkaline Phosphatase 133 U/L (45-117); Anion Gap 7 (5-15); BUN 29 mg/dL (7-18); BUN/Creat Ratio 20.9 RATIO (10-20); Calcium,Total 9.5 mg/dL (8.5-10.1); Chloride 104 mmol/L (98-107); Creatinine, Serum 1.39 mg/dL (0.70-1.30); EST Glomerular Filtration Rate 54 mL/min (>60); Est Glom Filt Rate - Afr Amer 65 mL/min (>60); Estimated Creatinine Clearance 49.45 ml/min; Glucose 216 mg/dL (74-106); Sodium Level 139 mmol/L (136-145)
[2023-04-10 14:43] VITALS: BP 127/85; PULSE 74; RESP 18; TEMP 36.2; O2SAT 99
[2023-04-10 15:19] LABS: Bacteria 0 SEEN /hpf (None Seen); Mucous, Urine 0 SEEN /hpf (<or=2+); Red Blood Cells-Urine 0 SEEN /hpf (0-5); Squamous Epithelial Cells - UA 0 SEEN /hpf (0-5); White Blood Cells 0 SEEN /hpf (0-5)
[2023-04-10 15:22] LABS: Color, Urine Yellow (Yellow); Glucose, Dipstick Normal (Normal); Ketone-Dipstick Negative (Negative); Leukocyte Esterase-Dipstick Negative /ul (Negative); Nitrite-Dipstick Negative (Negative); Occult Blood-Urine Negative /ul (Negative); Protein-Dipstick Negative (Negative); Specific Gravity, Urine 1.015 (1.002-1.030); Urine Bilirubin Dipstick Negative (Negative); Urine Clarity Clear (Clear); Urine Urobilinogen Normal (Normal)
--- NOTE | 2023-04-10 16:16 | NURSING ---
During straight catheterization patient seemed very confused and restless. Patient was asking the same question repetitively and was having confused conversations. Patient alert to self only. This RN called the patients POA and discussed his baseline status. The POA states that the patient lives by himself and is normally alert and oriented and able to care for himself. She seemed concerned that the patient was still confused. This RN addressed her concerns with the ER physicican.
--- NOTE | 2023-04-10 16:22 | PCM.HP.STD ---
HPI - General General Date of Admission: 04/10/23 Date of Service: 04/10/23 Chief Complaint: Generalized weakness HPI Narrative STEPH BAUMANN, is a 72 M with multiple comorbidities including previous, paroxysmal A-fib, nonischemic cardiomyopathy with ejection fraction of 20 to 25% who was brought to the emergency department after he activated his medic Alert.. Patient has been experiencing progressive generalized weakness. He also felt he was dehydrated. EMS reported patient being somewhat confused prior to patient being brought to the emergency department. In the emergency department underwent subsequent evaluation including head CT which is unremarkable. Decision was however made to admit patient as a case of adult failure to thrive sepsis caretakers were apparently out of town. [facility] Medical History Acute and chronic respiratory failure with hypoxia Acute heart failure with reduced ejection fraction and diastolic dysfunction Ambulates with cane Anticoagulant long-term use Ascites Asthma Atherosclerosis of coronary artery of [place] heart without angina pectoris Atrial fibrillation and flutter Back pain Benign brain tumor Cholelithiasis Chronic combined systolic and diastolic CHF (congestive heart failure) Chronic kidney disease (CKD) Cirrhosis of liver Cirrhosis of liver with ascites CPAP (continuous positive airway pressure) dependence Diabetes Diabetes mellitus, type II Essential (primary) hypertension Former smoker History of atrial fibrillation History of CVA (cerebrovascular accident) History of ulceration Hyperlipidemia Injury of back Insulin dependent diabetes mellitus Longstanding persistent atrial fibrillation Non-rheumatic tricuspid valve insufficiency Nonischemic cardiomyopathy NSTEMI (non-ST elevated myocardial infarction) (10/09/19) ALBINO (obstructive sleep apnea) 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 Right inguinal hernia Right ventricular systolic dysfunction Secondary pulmonary arterial hypertension Seizure disorder Sleep apnea Stasis edema of both lower extremities Stroke/cerebrovascular accident Thyroid disease Wears glasses Home Medications insulin glargine 100 unit/mL (3 mL) subcutaneous pen 27 unit SQ QHS diabetes 10/30/18 [History Last Taken 01/30/19] bicalutamide 50 mg tablet (Casodex) 50 mg PO DAILY prostate 12/10/21 [History Last Taken 02/18/22 10:32] loratadine 10 mg capsule 10 mg PO DAILY PRN allergies 12/10/21 [History Last Taken 02/18/22 10:32] cyanocobalamin (vitamin B-12) 250 mcg tablet (Vitamin B-12) 250 mcg PO DAILY Supplement 02/19/22 [History Last Taken 02/18/22 10:32] multivitamin 1 tab PO DAILY supplement 02/19/22 [History Last Taken 02/18/22 10:31] tramadol 50 mg tablet 50 mg PO Q6H PRN PRN Pain Score 1-10 7 days #28 tabs 04/01/22 [Rx Last Taken Unknown] bumetanide 1 mg tablet 3 tab PO DAILY water pill 04/25/22 [History Last Taken Unknown] calcium 300 mg chewable tablet 300 mg PO DAILY supplement 04/25/22 [History Last Taken Unknown] polysaccharide iron complex 150 mg iron capsule (Ferrex) 150 mg PO DAILY supplement 04/25/22 [History Last Taken Unknown] spironolactone 25 mg tablet 1 tab PO DAILY waterpill 04/25/22 [History Last Taken Unknown] apixaban 5 mg tablet (Eliquis) See Rx Instructions .Route .COMPLEX #60 TABLETS 05/19/22 [Rx Last Taken Unknown] lisinopril 40 mg tablet 40 mg PO DAILY 09/09/22 [History Last Taken Unknown] omeprazole 20 mg capsule,delayed release 20 mg PO DAILY 09/09/22 [History Last Taken Unknown] topiramate 25 mg tablet 25 mg PO BID 09/09/22 [History Last Taken Unknown] baclofen 20 mg tablet 20 mg PO TID #90 tabs 12/23/22 [Rx Last Taken Unknown] carbidopa 25 mg-levodopa 100 mg tablet 1 tab PO TID #90 tabs 12/23/22 [Rx Last Taken Unknown] carvedilol 6.25 mg tablet 6.25 mg PO BID This is a dose increase #180 tabs 03/10/23 [Rx Last Taken Unknown] Allergy/AdvReac Type Severity Reaction Status Date / Time acetaminophen AdvReac Other Verified 01/06/23 13:44 oxycodone AdvReac hallucinati Verified 01/06/23 13:44 ons Family History Daughter Heart disease valve replacement/chf Diabetes Mother Thyroid disorder Surgical History Biventricular ICD (implantable cardioverter-defibrillator) in place (10/12/19) H/O excision of tumor of brain meninges (2011) History of arthroplasty of right hip History of cardiac catheterization History of cardioversion (05/05/20) History of left heart catheterization (08/31/19) History of percutaneous coronary intervention (10/10/19) History of right and left heart catheterization History of right hip hemiarthroplasty History of tonsillectomy Social History household members: none Smoking Status: Former smoker how long ago did patient quit smokin years second hand exposure: No alcohol intake: never substance use type: does not use regla/jewish: None seatbelt use: always ROS ROS Narrative GENERAL: denies fever, chills, night sweats, HEENT: denies headache, sinus congestion, RESPIRATORY: denies cough, sputum production, CARDIAC: denies chest pain, palpitations, orthopnea, PND GASTROINTESTINAL: denies abdominal pain, nausea, vomiting, melena, GENITOURINARY: denies dysuria, urgency, frequency, heamaturia EXTREMITY: denies swelling MUSCULOSKELETAL: denies current joint pain or tenderness NEUROLOGIC: denies focal numbness, weakness, tingling HEMATOLOGIC: denies easy bruising and/or hemorrhage INTEGUMENT: denies rashes PSYCHIATRIC: denies suicidal or homicidal ideation Vital Signs Vital Signs Vital Signs: 04/10/23 12:46 04/10/23 14:43 Temperature 96.9 F L 97.1 F L Temperature Source Temporal Temporal Pulse Rate 71 74 Respiratory Rate 18 18 Blood Pressure 118/80 127/85 H Blood Pressure Mean 92 99 Pulse Ox 97 99 Oxygen Delivery Method Room Air Room Air Weight Weight: 87.9 kg Body Mass Index (BMI) 28.6 Results Lab / Micro Data Result Diagrams: 04/10/23 12:30 04/10/23 12:30 Labs: Laboratory Results - last 24 hr 04/10/23 12:30: WBC 9.3, RBC 4.14 L, Hgb 13.3, Hct 40.0, MCV 96.6 H, MCH 32.1 H, MCHC 33.3, RDW Std Deviation 48.4 H, RDW Coeff of Yonathan 13.8, Plt Count 155, MPV 11.2, Immature Gran % (Auto) 0.600, Neut % (Auto) 85.5 H, Lymph % (Auto) 5.4 L, [place] % (Auto) 6.7, Eos % (Auto) 1.4, Baso % (Auto) 0.4, Absolute Neuts (auto) 8.0 H, Absolute Lymphs (auto) 0.50 L, Nucleated RBC % 0, Differential Comment COMMENT 04/10/23 12:30: Sodium 139, Potassium 4.0, Chloride 104, Carbon Dioxide 28.0, Anion Gap 7, BUN 29 H, Creatinine 1.39 H, Estim Creat Clear Calc 49.45, Est GFR (MDRD) Af Amer 65, Est GFR (MDRD) Non-Af 54 L, BUN/Creatinine Ratio 20.9 H, Glucose 216 H, Calcium 9.5, Total Bilirubin 0.90, AST 16, ALT 12 L, Alkaline Phosphatase 133 H, Total Protein 8.0, Albumin 4.0, Globulin 4.0, Albumin/Globulin Ratio 1.0 04/10/23 15:12: Urine Color Yellow, Urine Clarity Clear, Urine pH 6.0, Ur Specific [place] 1.015, Urine Protein Negative, Urine Glucose (UA) Normal, Urine Ketones Negative, Urine Occult Blood Negative, Urine Nitrite Negative, Urine Bilirubin Negative, Urine Urobilinogen Normal, Ur Leukocyte Esterase Negative, Urine RBC 0 SEEN, Urine WBC 0 SEEN, Ur Squamous Epith Cells 0 SEEN, Urine Bacteria 0 SEEN, Urine Mucus 0 SEEN Radiology Impression Brain CT 04/10/23 13:18 IMPRESSION: 1. No CT evidence of intracranial bleeding, acute ischemic infarct or acute intracranial abnormality. 2. Large old cortical-based cystic infarctions involving the posterior right temporal lobe, right central lobe and the posterior aspect of the right superior frontal gyrus. 3. Small old ischemic infarct with focal atrophy and encephalomalacia in the left precentral gyrus. 4. Old lacunar ischemic infarct in the left thalamus. 5. No interval change when compared to 07/21/2022. Electronically Signed: Victorino Darby MD at 13:54 EDT , Chest X-Ray 04/10/23 13:26 IMPRESSION: 1. No acute findings in the chest. 2. No interval change when compared to 06/07/2022. Electronically Signed: Victorino Darby MD at 13:55 EDT , Assessment & Plan Assessment/Plan (1) Adult failure to thrive: PLAN: Plan Patient is a 72-year-old gentleman with multiple comorbidities admitted with progressive generalized weakness 1. Adult failure to thrive ? Requested for PT OT eval and social science manager to assist with discharge planning 2. Nonischemic cardiomyopathy -with a known ejection fraction of 20 to 25% with a placement of a BiV ICD.? Patient is on diuretic therapy with spironolactone and bumetanide and plan is to resume once home meds have been reconciled by pharmacy 3. Atrial tachyarrhythmia ? With history of cardioversion in February 2020 4. Paroxysmal A-fib ? Rate controlled on carvedilol and on systemic anticoagulation with apixaban 5. Chronic kidney disease stage III ? Kidney function at baseline 6. History of recurrent CVA ? With residual left-sided weakness patient at baseline 7. Hypertension - Blood pressure controlled, home medications continued with dose adjustment as needed 8. Diabetes mellitus type 2 ? Patient is on long-acting insulin did continue also placed on Accu-Cheks before meals and at bedtime with sliding scale coverage GERD ? Patient is on PPI continued 9. Parkinson's disease ? Patient is on carbidopa levodopa did continue 10. Obstructive sleep apnea -on CPAP at night 11. Seizure disorder ? Patient on topiramate did continue 12. History of prostate CA ? Patient previously undergone radiation therapy 13. DVT prophylaxis ? Patient is on apixaban and continue Time spent in the patient's overall evaluation,decision-making process, review of diagnostic data, adjustment of management, discussion with other providers, nursing nursing and ancillary staff involved in patient's care documentation, 77 Minutes Advance planning; did discuss with the patient and family regarding advanced directives as well as CODE STATUS. Did explain the various scenarios involved ( FULL CODE, DNR CCA, DNR CCA with no intubation, and DNR CC and what each meant) patient elected to remain full code with CPR and intubation if needed. Order was placed. Time spent on discussion 18 minutes. Charges/Coding Visit Charges Inpatient E&M: 72147 Init Hosp L3 Procedures Hospitalists Procedures: 80459 Advncd Care Plan 30 Min
[2023-04-10 16:35] VITALS: BP 136/75; PULSE 76; RESP 24; TEMP 36.4; O2SAT 98
[2023-04-10 18:32] VITALS: BMI 26.2
[2023-04-10 18:49] VITALS: BP 117/76; PULSE 70; RESP 18; TEMP 36.4; O2SAT 99
[2023-04-10] MEDS: APIXABAN 5 MG TABLET PO (20:26)
[2023-04-10] MEDS: Baclofen 10 MG Tablet 20 MG PO (20:26)
[2023-04-10] MEDS: Carvedilol 6.25 MG Tablet PO (20:26)
[2023-04-10] MEDS: Carbidopa/Levodopa 25/100 Tablet PO (20:26)
[2023-04-10 21:19] LABS: Bedside Glucose 112 mg/dL (74-106)
[2023-04-10 22:16] VITALS: BP 115/74; PULSE 70; RESP 18; TEMP 36.6; O2SAT 98
[2023-04-11 02:58] VITALS: BP 135/90; PULSE 70; RESP 18; TEMP 36.3; O2SAT 96
[2023-04-11 03:27] VITALS: BMI 26.3
[2023-04-11] MEDS: Baclofen 10 MG Tablet 20 MG PO ×3 (06:13→20:42)
[2023-04-11] MEDS: Carbidopa/Levodopa 25/100 Tablet PO ×3 (06:13→20:43)
[2023-04-11 06:32] LABS: Basophil# 0.03 X10^3/uL; Basophil% 0.5 % (0-1); Eosinophil# 0.22 X10^3/uL; Eosinophils% 3.6 % (0-5); Hematocrit 37.8 % (40-54); Hemoglobin 12.3 g/dL (13.0-16.5); Lymphocyte % 6.6 % (19-41); Mean Corp Hgb Conc 32.5 g/dL (32-36); Mean Corpuscular Volume 98.4 fL (80-94); Mean Platelet Vol. 11.1 fl (6.2-12.0); Monocyte# 0.38 X10^3/uL; Monocyte% 6.3 % (0-10); NRBC Flagged by Analyzer 0 % (0-5); Neutrophil # 4.95 X10^3/uL (2.7-7.7); Neutrophil % 82.2 % (47-70); POSITIVE DIFFERENTIAL YES; Platelet Count 111 K/mm3 (150-450); RBC Distribution Width CV 13.9 % (11.6-14.6); RBC Distribution Width SD 49.5 fl (35.1-43.9); Red Blood Count 3.84 M/mm3 (4.6-6.2)
[2023-04-11 06:36] LABS: Bedside Glucose 147 mg/dL (74-106)
[2023-04-11 06:36] LABS: Differential Indicated SCAN CRITERIA MET
[2023-04-11 07:04] LABS: Differential Comment SCANNED
[2023-04-11 07:05] LABS: Anion Gap 4 (5-15); BUN 23 mg/dL (7-18); BUN/Creat Ratio 19.5 RATIO (10-20); Chloride 108 mmol/L (98-107); Creatinine, Serum 1.18 mg/dL (0.70-1.30); EST Glomerular Filtration Rate 65 mL/min (>60); Est Glom Filt Rate - Afr Amer 78 mL/min (>60); Estimated Creatinine Clearance 58.25 ml/min; Glucose 146 mg/dL (74-106); Magnesium 1.9 mg/dL (1.6-2.6); Phosphorus 3.1 mg/dL (2.5-4.9); Potassium 3.7 mmol/L (3.5-5.1); Sodium Level 139 mmol/L (136-145)
[2023-04-11 07:31] VITALS: O2SAT 95
[2023-04-11 07:35] VITALS: BP 136/88; PULSE 69; RESP 16; TEMP 36.6; O2SAT 99
[2023-04-11] MEDS: Cyanocobalamin 500 MCG Tablet 250 MCG PO (07:50)
[2023-04-11] MEDS: Multivitamins,Therapeutic Tablet 1 TABLET PO (07:51)
[2023-04-11] MEDS: Calcium (Elemental) 500 MG Tablet PO (07:51)
[2023-04-11] MEDS: Spironolactone 25 MG Tablet PO (10:01)
[2023-04-11] MEDS: Lisinopril 40 MG Tablet PO (10:01)
[2023-04-11] MEDS: APIXABAN 5 MG TABLET PO ×2 (10:01→20:43)
[2023-04-11] MEDS: Iron Polysaccharide Complex 150 MG CAPSULE PO (10:01)
[2023-04-11] MEDS: Carvedilol 6.25 MG Tablet PO ×2 (10:01→20:43)
[2023-04-11] MEDS: Pantoprazole Sodium 20 MG Tablet PO (10:01)
--- NOTE | 2023-04-11 10:58 | CASEMGMT ---
Addendum entered by Maria E Corado 04/11/23 11:30: TC to Bob, who confirms accuracy of assessment other than adding that pt has had HHC in the past through an agency in [place], noted it was [facility] from TCU notes. She also states that pt was in [facility] TCU. She states pt has a power w/c, medic alert and there are cameras on him in the home. Pt receive pill packs from [facility] and she puts them in containers where pt takes them morning, noon and night. She states pt has not had falls recently. She states pt does not have any issues getting around his home and pt is afraid to go to a SNF as he feels they will try to make him stay. Discussed the possibility of the Rehab unit and she states that pt did not have a good experience in TCU and the same girl is over the rehab unit as well, so she does not think he would be agreeable to this. She would like to see pt return home with HHC. Original Note: TISH BRINK Assessment: Face to Face with pt for initial transition planning/care coordination assessment. TISH BRINK introduced self and role at [facility], pt voices understanding and consents to assessment. Pt is A/O x3 and answers all questions appropriately at this time. Care providers, pharmacy, and demographics verified/updated. Admitting Dx: adult faillure to thrive PCP:Parker Specialists:adonay Liriano Pharmacy: [facility] Insurance: [facility], [employer] Sr Supp Prescription Benefit: yes LNOK: Bob CastroEDGAR Living Arrangements: Pt lives alone in a single story apt with 5 steps to enter with rails on both sides. Pt reports Bob comes twice a week and does cooking, cleaning and laundry. Pt states he heats meals in the microwave. Noted Bob lives in [place] on face sheet. Transportation: Pt reports that Bob transports him to medical appts. DME/HHC/SNF: Pt has a lift chair, shower chair, FWW and grab bars in the shower and tub. Pt denies hx of HHC or SNF stays. Pt states no concerns with going home at time of dc. Pt states he feels he did well with therapy today. Discussed that he needed the assistance of 2 people with his walker, he states he could've ambulated with just the walker. Pt states he does not want to go to a facility for therapy but would be open to having therapy come to his home. He is agreeable to RN CM calling Bob. Pt states no further concerns/needs. CM to follow. Advised pt to ask CM if any further question/concerns/needs arise, voices understanding. Pt Goal: Home with therapy Plan: TBD Spoke with therapy, states pt is not safe to return home at this level. Suggested possible rehab unit.
[2023-04-11] MEDS: Insulin Lispro 100 UNIT/ML INSULN.PEN SC ×2 (11:13→20:43)
[2023-04-11 11:47] LABS: Bedside Glucose 274 mg/dL (74-106)
--- NOTE | 2023-04-11 11:47 | CASEMGMT ---
Addendum entered by Maria E Corado 04/11/23 13:24: Pt aware [facility] has accepted for services. Addendum entered by Maria E Corado 04/11/23 12:42: [facility] has accepted pt for [facility]. Original Note: TISH BRINK in to discuss BERNAL form with patient. TISH BRINK explained BERNAL form, patient voiced understanding. Pt signed form and filed in chart. Pt provided with a copy of signed BERNAL form. Patient had no further questions or concerns at this time. Discussed with pt the Rehab unit at [facility]. Pt asks if he has to go there. Discussed that pt can make his own decision as to if he wants this or not, but that further therapy is recommended. He states he would like to return home with [facility] that he had in the past. Bob called while TISH BRINK in room and states pt had [facility] and the therapist was Sudhir. Pt aware referral will be made to [facility].
--- NOTE | 2023-04-11 12:03 | CASEMGMT ---
Discharge Planning Referral sent via [facility]. Kayleigh Valencia
--- NOTE | 2023-04-11 12:47 | PCM.PROGNOTE ---
Subjective Subjective Patient seen and examined. He was comfortably eating breakfast. He had no complaints and had an uneventful night. Review of systems otherwise negative. He has remained hemodynamically stable. Objective Data Objective Data Vital Signs: Vital Signs Temp Pulse Resp BP Pulse Ox O2 Del Method 97.8 F 69 16 136/88 H 99 Room Air 04/11/23 07:35 04/11/23 07:35 04/11/23 07:35 04/11/23 07:35 04/11/23 07:35 04/11/23 07:35 Oxygen Delivery Method Room Air Weight: 177 lb 14.609 oz Body Mass Index (BMI) 26.3 Intake & Output: Intake and Output for Last 24 Hours 04/09/23 04/10/23 04/11/23 23:59 23:59 23:59 Intake Total 1000 / 1000 Output Total 200 / 200 Balance 800 / 800 Lab / Micro Data Result Diagrams: 04/11/23 05:45 04/11/23 05:45 Labs: Laboratory Results - last 24 hr 04/10/23 12:30: WBC 9.3, RBC 4.14 L, Hgb 13.3, Hct 40.0, MCV 96.6 H, MCH 32.1 H, MCHC 33.3, RDW Std Deviation 48.4 H, RDW Coeff of Yonathan 13.8, Plt Count 155, MPV 11.2, Immature Gran % (Auto) 0.600, Neut % (Auto) 85.5 H, Lymph % (Auto) 5.4 L, [place] % (Auto) 6.7, Eos % (Auto) 1.4, Baso % (Auto) 0.4, Absolute Neuts (auto) 8.0 H, Absolute Lymphs (auto) 0.50 L, Nucleated RBC % 0, Differential Comment COMMENT 04/10/23 12:30: Sodium 139, Potassium 4.0, Chloride 104, Carbon Dioxide 28.0, Anion Gap 7, BUN 29 H, Creatinine 1.39 H, Estim Creat Clear Calc 49.45, Est GFR (MDRD) Af Amer 65, Est GFR (MDRD) Non-Af 54 L, BUN/Creatinine Ratio 20.9 H, Glucose 216 H, Calcium 9.5, Total Bilirubin 0.90, AST 16, ALT 12 L, Alkaline Phosphatase 133 H, Total Protein 8.0, Albumin 4.0, Globulin 4.0, Albumin/Globulin Ratio 1.0 04/10/23 15:12: Urine Color Yellow, Urine Clarity Clear, Urine pH 6.0, Ur Specific [place] 1.015, Urine Protein Negative, Urine Glucose (UA) Normal, Urine Ketones Negative, Urine Occult Blood Negative, Urine Nitrite Negative, Urine Bilirubin Negative, Urine Urobilinogen Normal, Ur Leukocyte Esterase Negative, Urine RBC 0 SEEN, Urine WBC 0 SEEN, Ur Squamous Epith Cells 0 SEEN, Urine Bacteria 0 SEEN, Urine Mucus 0 SEEN 04/10/23 20:24: POC Glucose 112 H 04/11/23 05:45: WBC 6.0, RBC 3.84 L, Hgb 12.3 L, Hct 37.8 L, MCV 98.4 H, MCH 32.0, MCHC 32.5, RDW Std Deviation 49.5 H, RDW Coeff of Yonathan 13.9, Plt Count 111 L, MPV 11.1, Immature Gran % (Auto) 0.800, Neut % (Auto) 82.2 H, Lymph % (Auto) 6.6 L, [place] % (Auto) 6.3, Eos % (Auto) 3.6, Baso % (Auto) 0.5, Absolute Neuts (auto) 5.0, Absolute Lymphs (auto) 0.40 L, Nucleated RBC % 0, Differential Comment SCANNED 04/11/23 05:45: Sodium 139, Potassium 3.7, Chloride 108 H, Carbon Dioxide 27.0, Anion Gap 4 L, BUN 23 H, Creatinine 1.18, Estim Creat Clear Calc 58.25, Est GFR (MDRD) Af Amer 78, Est GFR (MDRD) Non-Af 65, BUN/Creatinine Ratio 19.5, Glucose 146 H, Calcium 9.0, Phosphorus 3.1, Magnesium 1.9 04/11/23 06:12: POC Glucose 147 H 04/11/23 11:06: POC Glucose 274 H Radiography Diagnostic Testing: Radiology Impression Brain CT 04/10/23 13:18 IMPRESSION: 1. No CT evidence of intracranial bleeding, acute ischemic infarct or acute intracranial abnormality. 2. Large old cortical-based cystic infarctions involving the posterior right temporal lobe, right central lobe and the posterior aspect of the right superior frontal gyrus. 3. Small old ischemic infarct with focal atrophy and encephalomalacia in the left precentral gyrus. 4. Old lacunar ischemic infarct in the left thalamus. 5. No interval change when compared to 07/21/2022. Electronically Signed: Victorino Darby MD at 13:54 EDT , Chest X-Ray 04/10/23 13:26 IMPRESSION: 1. No acute findings in the chest. 2. No interval change when compared to 06/07/2022. Electronically Signed: Victorino Darby MD at 13:55 EDT , Physical Exam Const alert, oriented x3 and no apparent distress General Appearance: cooperative HEENT normocephalic, head/scalp atraumatic, moist oral mucous membranes and oropharynx normal Eyes PERRL and EOMs intact bilaterally Neck no lymphadenopathy, supple and no JVD General: trachea midline Lymph Lymphatic: no lymphadenopathy noted and no lymphedema noted Resp normal respiratory effort, normal air movement and clear to auscultation bilaterally Cardio regular rate, regular rhythm, S1 normal heart sound, S2 normal heart sound and no murmurs GI normal to inspection, nondistended, normoactive bowel sounds, soft to palpation, non-tender and non-distended Extremity normal capillary refill, no clubbing, cyanosis or edema and no calf tenderness Skin General Skin Exam: no breakdown and turgor normal Neuro CN's II-XII intact bilaterally, no focal motor deficits, no sensory deficits noted and deep tendon reflexes 2+ bilaterally Motor Exam: strength 5/5 throughout Psych thought process normal, cooperative and affect normal Appearance: appropriate Assessment & Plan Assessment/Plan (1) Weakness: (2) Adult failure to thrive: PLAN: Plan #Adult failure to thrive Patient has been getting weaker and more debilitated at home. PT OT consulted. Fall precautions. #Nonischemic cardiomyopathy Has known EF of 20 to 25%. He is s/p placement of a biventricular ICD And diuretics namely spironolactone and Bumex. #Paroxysmal A-fib: On carvedilol. Rate controlled. On Eliquis. 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 PT OT on board. #Hypertension: #Type 2 diabetes mellitus: On Lantus. Insulin sliding scale. Accu-Cheks ACHS. #GERD: On PPI #Parkinson's disease: On carbidopa and levodopa #Obstructive sleep apnea: On CPAP nightly #Seizure disorder: On topiramate #History of prostate cancer wants to dispose radiation DVT prophylaxis: Already on Eliquis Charges/Coding Visit Charges Inpatient E&M: 09148 Subs Hosp L2
[2023-04-11 14:09] VITALS: BP 120/75; PULSE 70; RESP 16; TEMP 36.4; O2SAT 99
[2023-04-11 16:41] LABS: Bedside Glucose 133 mg/dL (74-106)
[2023-04-11 20:38] VITALS: BP 127/83; PULSE 70; RESP 18; TEMP 36.4; O2SAT 98
[2023-04-11] MEDS: Bumetanide 0.5 MG Tablet 1 MG PO (20:42)
[2023-04-11] MEDS: Insulin Glargine-YFGN 100 UNIT/ML Pen 27 UNIT SC (20:44)
[2023-04-11 21:33] LABS: Bedside Glucose 178 mg/dL (74-106)
[2023-04-12 03:00] VITALS: BP 117/76; PULSE 68; RESP 18; TEMP 36.4; O2SAT 94
[2023-04-12 04:26] VITALS: BMI 26.2
[2023-04-12] MEDS: Bumetanide 0.5 MG Tablet 1 MG PO (05:25)
[2023-04-12] MEDS: Insulin Lispro 100 UNIT/ML INSULN.PEN SC ×2 (05:25→11:01)
[2023-04-12] MEDS: Carbidopa/Levodopa 25/100 Tablet PO (05:25)
[2023-04-12] MEDS: Baclofen 10 MG Tablet 20 MG PO (05:25)
[2023-04-12 05:50] LABS: Bedside Glucose 162 mg/dL (74-106)
[2023-04-12 06:55] LABS: Absolute Lymphocyte Count 0.46 X10^3/uL (0.83-4.51); Absolute Neutrophil Count 4.3 X10^3/uL (2.0-7.7); Basophil# 0.02 X10^3/uL; Basophil% 0.4 % (0-1); Eosinophil# 0.28 X10^3/uL; Eosinophils% 5.1 % (0-5); Hematocrit 38.2 % (40-54); Hemoglobin 12.7 g/dL (13.0-16.5); Lymphocyte # 0.46 X10^3/ul (0.83-4.51); Lymphocyte % 8.4 % (19-41); Mean Corp Hgb Conc 33.2 g/dL (32-36); Mean Corpuscular Hgb 32.3 pg (27.0-32.0); Mean Corpuscular Volume 97.2 fL (80-94); Monocyte# 0.39 X10^3/uL; Monocyte% 7.1 % (0-10); NRBC Flagged by Analyzer 0 % (0-5); Neutrophil # 4.27 X10^3/uL (2.7-7.7); Neutrophil % 78.1 % (47-70); POSITIVE DIFFERENTIAL YES; Platelet Count 118 K/mm3 (150-450); RBC Distribution Width CV 13.7 % (11.6-14.6); RBC Distribution Width SD 48.8 fl (35.1-43.9); Red Blood Count 3.93 M/mm3 (4.6-6.2); White Blood Count 5.5 K/mm3 (4.4-11.0)
[2023-04-12 07:08] LABS: Differential Indicated SCAN CRITERIA MET
[2023-04-12 07:25] LABS: Anion Gap 6 (5-15); BUN 26 mg/dL (7-18); BUN/Creat Ratio 20.8 RATIO (10-20); Calcium,Total 9.1 mg/dL (8.5-10.1); Chloride 106 mmol/L (98-107); Creatinine, Serum 1.25 mg/dL (0.70-1.30); EST Glomerular Filtration Rate 61 mL/min (>60); Est Glom Filt Rate - Afr Amer 73 mL/min (>60); Estimated Creatinine Clearance 54.99 ml/min; Glucose 143 mg/dL (74-106); Potassium 3.5 mmol/L (3.5-5.1); Sodium Level 140 mmol/L (136-145)
[2023-04-12 07:31] VITALS: BP 126/92; PULSE 70; RESP 16; TEMP 36.6; O2SAT 100
[2023-04-12] MEDS: Multivitamins,Therapeutic Tablet 1 TABLET PO (07:42)
[2023-04-12] MEDS: Cyanocobalamin 500 MCG Tablet 250 MCG PO (07:43)
[2023-04-12] MEDS: Calcium (Elemental) 500 MG Tablet PO (07:43)
[2023-04-12] MEDS: Carvedilol 6.25 MG Tablet PO (09:11)
[2023-04-12] MEDS: Spironolactone 25 MG Tablet PO (09:11)
[2023-04-12] MEDS: APIXABAN 5 MG TABLET PO (09:12)
[2023-04-12] MEDS: Iron Polysaccharide Complex 150 MG CAPSULE PO (09:12)
[2023-04-12] MEDS: Pantoprazole Sodium 20 MG Tablet PO (09:13)
[2023-04-12] MEDS: Lisinopril 40 MG Tablet PO (09:13)
--- NOTE | 2023-04-12 09:59 | DS.PCM_ITS ---
Providers Date of Admission: 04/10/23 Date of Discharge: 04/12/23 Primary Care Physician: Dr. Pratibha Canales MD Reason For Visit: ADULT FAILURE TO THRIVE Diagnosis Discharge Diagnosis (1) Weakness: Status: Acute Code(s): R53.1 - Weakness (2) Adult failure to thrive: Status: Acute Code(s): R62.7 - Adult failure to thrive Plan #Adult failure to thrive * Patient has been getting weaker and more debilitated at home. PT OT consulted. Fall precautions. * #Nonischemic cardiomyopathy * Has known EF of 20 to 25%. He is s/p placement of a biventricular ICD * And diuretics namely spironolactone and Bumex. * #Paroxysmal A-fib: On carvedilol. Rate controlled. On Eliquis. 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 PT OT on board. #Hypertension: #Type 2 diabetes mellitus: On Lantus. Insulin sliding scale. Accu-Cheks ACHS. #GERD: On PPI #Parkinson's disease: On carbidopa and levodopa #Obstructive sleep apnea: On CPAP nightly #Seizure disorder: On topiramate #History of prostate cancer wants to dispose radiation DVT prophylaxis: Already on Eliquis Medications at Discharge Home Medications insulin glargine 100 unit/mL (3 mL) subcutaneous pen 27 unit SQ QHS diabetes 10/30/18 bicalutamide 50 mg tablet (Casodex) 50 mg PO DAILY prostate 12/10/21 loratadine 10 mg capsule 10 mg PO DAILY PRN allergies 12/10/21 multivitamin 1 tab PO DAILY supplement 02/19/22 bumetanide 1 mg tablet 1 tab PO TID water pill 04/25/22 apixaban 5 mg tablet (Eliquis) See Rx Instructions .Route .COMPLEX #60 TABLETS 05/19/22 lisinopril 40 mg tablet 40 mg PO DAILY 09/09/22 omeprazole 20 mg capsule,delayed release 20 mg PO BID 09/09/22 baclofen 20 mg tablet 20 mg PO TID #90 tabs 12/23/22 carvedilol 6.25 mg tablet 6.25 mg PO BID This is a dose increase #180 tabs 03/10/23 albuterol 90 mcg/actuation aerosol inhaler 180 mcg inhalation Q6H PRN Shortness Of Breath 04/11/23 budesonide-formoterol HFA 80 mcg-4.5 mcg/actuation aerosol inhaler 2 puff inhalation BID 04/11/23 cyanocobalamin (vitamin B-12) 1,000 mcg tablet 1,000 mcg PO DAILY 04/11/23 fluticasone furoate 100 mcg-vilanterol 25 mcg/dose inhalation powder 1 ea inhalation DAILY 04/11/23 tamsulosin 0.4 mg capsule 0.4 mg PO QHS 04/11/23 Hospital Course Operations None Summary of Care Provided Minutes Spent on Discharge: 47 Hospital Course: Patient is a 72-year-old male with a past medical history as outlined which includes A-fib and nonischemic cardiomyopathy with EF of 20 to 25%. He was brought into the ED after he activated his medic alert. Patient been getting progressively weak and also felt dehydrated. When the EMS came he was thought to be confused. CT of the brain done showed no acute pathology. He was admitted and managed for failure to thrive with debility and weakness. PT OT worked with patient. His hospital course was not further complicated. He did work with physical therapy and he was recommended to go to acute rehab facility. Patient and his girlfriend however were reluctant for him to go to acute rehab facility and wanted to do him to go home with home health care set up. Patient was discharged home on 04/12/2023. He is to follow-up with his primary care doctor within 1 to 2 weeks. Patient seen and examined prior to discharge. He felt well. He had an uneventful night and review of systems otherwise negative. Labs and vitals re viewed. Home medication reviewed and reconciled. Physical Exam Const alert, oriented x3 and no apparent distress General Appearance: cooperative and comfortable HEENT normocephalic, head/scalp atraumatic, hearing grossly normal bilaterally, moist oral mucous membranes and oropharynx normal Mouth: oral and palatal mucosa normal Eyes PERRL and EOMs intact bilaterally Neck no lymphadenopathy, supple and no JVD General: trachea midline Lymph Lymphatic: no lymphadenopathy noted and no lymphedema noted Resp normal respiratory effort, normal air movement and clear to auscultation bilaterally Cardio regular rate, regular rhythm, S1 normal heart sound, S2 normal heart sound and no murmurs GI normal to inspection, nondistended, normoactive bowel sounds, soft to palpation, non-tender and non-distended Extremity normal to inspection, full ROM, normal capillary refill, no clubbing, cyanosis or edema and no calf tenderness Skin no rashes or lesions noted and no wounds General Skin Exam: no breakdown and turgor normal Neuro oriented x3, CN's II-XII intact bilaterally, moves all extremities, no focal motor deficits, no sensory deficits noted and deep tendon reflexes 2+ bilaterally Neuro Narrative: frail Sensorium / Orientation: awake Motor Exam: strength 5/5 throughout Psych thought process normal, cooperative and affect normal Appearance: appropriate Weight / BMI Weight Weight: 177 lb 7.554 oz Body Mass Index (BMI) 26.2 ABG / Lab / Microbiology Data Result Diagrams: 04/12/23 05:50 04/12/23 05:50 Laboratory: Laboratory Results - last 24 hr 04/11/23 11:06: POC Glucose 274 H 04/11/23 16:12: POC Glucose 133 H 04/11/23 20:40: POC Glucose 178 H 04/12/23 05:15: POC Glucose 162 H 04/12/23 05:50: WBC 5.5, RBC 3.93 L, Hgb 12.7 L, Hct 38.2 L, MCV 97.2 H, MCH 32.3 H, MCHC 33.2, RDW Std Deviation 48.8 H, RDW Coeff of Yonathan 13.7, Plt Count 118 L, MPV 11.0, Immature Gran % (Auto) 0.900, Neut % (Auto) 78.1 H, Lymph % (Auto) 8.4 L, [place] % (Auto) 7.1, Eos % (Auto) 5.1 H, Baso % (Auto) 0.4, Absolute Neuts (auto) 4.3, Absolute Lymphs (auto) 0.46 L, Nucleated RBC % 0, Differential Comment COMMENT 04/12/23 05:50: Sodium 140, Potassium 3.5, Chloride 106, Carbon Dioxide 28.0, Anion Gap 6, BUN 26 H, Creatinine 1.25, Estim Creat Clear Calc 54.99, Est GFR (MDRD) Af Amer 73, Est GFR (MDRD) Non-Af 61, BUN/Creatinine Ratio 20.8 H, Glucose 143 H, Calcium 9.1 D/C Instructions Discharge Diet: Low fat / Low cholesterol Discharge Activity: Return to Normal Activity Weight Bearing Status: Weight bearing as tolerated Call your doctor if you observe: Fever of 101 or Higher, Shortness of breath, Dizziness, Swelling in the ankles and Chest pain Meaningful Use Info Meaningful Use Diagnoses (Choose all that apply): None applicable Discharge Plan Admission Admit Date/Time: 04/10/23 16:14 Primary Reason for Your Visit: generalised weakness and debility Attending Provider: Fior Turner Primary Care Provider: Pratibha Canales Consulting Providers: Michael Jacobs Discharge Orders/Prescriptions Prescriptions: Continued bicalutamide [Casodex] 50 mg tablet 50 mg PO DAILY loratadine 10 mg capsule 10 mg PO DAILY PRN (Reason: allergies) omeprazole 20 mg capsule,delayed release(DR/EC) 20 mg PO BID lisinopril 40 mg tablet 40 mg PO DAILY baclofen 20 mg tablet 20 mg PO TID Qty: 90 5RF insulin glargine 100 UNIT/ML insulin pen 27 unit SQ QHS multivitamin Tablet 1 tab PO DAILY bumetanide 1 mg tablet 1 tab PO TID Hold Instructions: Resume on 04/29/22. Label Comments: TAKE 3 TABLETS BY MOUTH ONCE DAILY albuterol 90 mcg/actuation Aerosol 180 mcg INHALATION Q6H PRN (Reason: Shortness Of Breath) Rx Instructions: (2 puffs) budesonide-formoterol 80-4.5 mcg/actuation Hfa Aerosol Inhaler 2 puff INHALATION BID cyanocobalamin (vitamin B-12) 1,000 mcg Tablet 1,000 mcg PO DAILY fluticasone furoate-vilanterol 100-25 mcg/dose Blister With Device 1 ea INHALATION DAILY tamsulosin 0.4 mg Capsule 0.4 mg PO QHS Eliquis 5 mg tablet See Rx Instructions .ROUTE .COMPLEX Qty: 60 11RF Dose Instruction: TAKE ONE (1) TABLET BY MOUTH TWICE DAILY Rx Instructions: TAKE ONE (1) TABLET BY MOUTH TWICE DAILY carvedilol 6.25 mg tablet 6.25 mg PO BID Qty: 180 3RF Rx Instructions: must administer with a meal/food Referrals / Follow Up: Pratibha Canales MD [Primary Care Provider] - Within 1 Week Disposition Disposition (needs filled in before D/C Order can be placed): Home Health Service Charges/Coding Visit Charges Inpatient E&M: 78094 Disch Hosp >30min
--- NOTE | 2023-04-12 10:25 | CASEMGMT ---
DC Summary sent to [facility] at this time. Pt to dc today. POA to arrive in approx 3 hours per pt nurse.
--- NOTE | 2023-04-12 11:06 | PHA.DC.MR ---
Pharmacy Service has performed discharge medication reconciliation for this patient. The patient's discharge medication list was reviewed for discrepancies and discrepancies were resolved. Home Medications insulin glargine 100 unit/mL (3 mL) subcutaneous pen 27 unit SQ QHS diabetes 10/30/18 bicalutamide 50 mg tablet (Casodex) 50 mg PO DAILY prostate 12/10/21 loratadine 10 mg capsule 10 mg PO DAILY PRN allergies 12/10/21 multivitamin 1 tab PO DAILY supplement 02/19/22 bumetanide 1 mg tablet 1 tab PO TID water pill 04/25/22 apixaban 5 mg tablet (Eliquis) See Rx Instructions .Route .COMPLEX #60 TABLETS 05/19/22 lisinopril 40 mg tablet 40 mg PO DAILY 09/09/22 omeprazole 20 mg capsule,delayed release 20 mg PO BID 09/09/22 baclofen 20 mg tablet 20 mg PO TID #90 tabs 12/23/22 carvedilol 6.25 mg tablet 6.25 mg PO BID This is a dose increase #180 tabs 03/10/23 albuterol 90 mcg/actuation aerosol inhaler 180 mcg inhalation Q6H PRN Shortness Of Breath 04/11/23 budesonide-formoterol HFA 80 mcg-4.5 mcg/actuation aerosol inhaler 2 puff inhalation BID 04/11/23 cyanocobalamin (vitamin B-12) 1,000 mcg tablet 1,000 mcg PO DAILY 04/11/23 fluticasone furoate 100 mcg-vilanterol 25 mcg/dose inhalation powder 1 ea inhalation DAILY 04/11/23 tamsulosin 0.4 mg capsule 0.4 mg PO QHS 04/11/23
[2023-04-12 11:22] LABS: Bedside Glucose 314 mg/dL (74-106)
== END 2023-04-12 12:55 | disposition home health service (06) ==
LOC: ED 16:22 → MS3 16:28
PROVIDERS: Admitting Provider Internal Medicine; Emergency Provider Emergency Medicine; PCP Internal Medicine; Visit Provider Student in an Organized Health Care Education/Training Program
DX: R62.7 Adult failure to thrive (principal); G20 Parkinson's disease; K74.60 Unspecified cirrhosis of liver; I50.42 Chronic combined systolic (congestive) and diastolic (congestive) heart failure; I13.0 Hypertensive heart and chronic kidney disease with heart failure and stage 1 through stage 4 chronic kidney disease, or unspecified chronic kidney disease; I42.8 Other cardiomyopathies; E11.22 Type 2 diabetes mellitus with diabetic chronic kidney disease; I48.0 Paroxysmal atrial fibrillation; G40.909 Epilepsy, unspecified, not intractable, without status epilepticus; Z79.4 Long term (current) use of insulin; N18.32 Chronic kidney disease, stage 3b; Z86.73 Personal history of transient ischemic attack (TIA), and cerebral infarction without residual deficits; Z87.891 Personal history of nicotine dependence; E78.5 Hyperlipidemia, unspecified; I25.10 Atherosclerotic heart disease of native coronary artery without angina pectoris; R53.81 Other malaise; Z79.899 Other long term (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; Z79.01 Long term (current) use of anticoagulants; Z79.51 Long term (current) use of inhaled steroids; R53.1 Weakness; K21.9 Gastro-esophageal reflux disease without esophagitis; G47.33 Obstructive sleep apnea (adult) (pediatric); J45.909 Unspecified asthma, uncomplicated; Z95.810 Presence of automatic (implantable) cardiac defibrillator
CPT/HCPCS: 96360; 99285; 36415; 70450; 71045; 80048; 80053; 81001; 82962; 83735; 84100; 85025; 93005; 97110; 97116; 97162; 97166; 97530; 97535; 99221; P9612; G0378

== ENCOUNTER 2023-04-13 14:08 | Inpatient (IN) | payer MEDICARE, OTHER, SELFPAY ==
[2023-04-13 14:09] VITALS: BP 106/77; PULSE 71; RESP 18; TEMP 36.6; O2SAT 98; BMI 27.2
--- NOTE | 2023-04-13 14:47 | EKG12_ITS ---
Test Reason : Blood Pressure : / mmHG Vent. Rate : 072 BPM Atrial Rate : 072 BPM P-R Int : 000 ms QRS Dur : 180 ms QT Int : 500 ms P-R-T Axes : 000 176 059 degrees QTc Int : 547 ms Ventricular-paced rhythm with occasional Premature ventricular complexes Biventricular pacemaker detected Abnormal ECG Confirmed by HOWARD BUSTILLO, BRADY ([id number]), food expeditor ISREAL HORTON ([id number]) on 04/15/2023 8:08:55 AM Referred By: Confirmed By:BRADY LAWRENCE MD
--- NOTE | 2023-04-13 14:48 | EDS_ITS ---
HPI History of Present Illness Chief Complaint: Weakness Detail of Chief Complaint: Weakness Informant: patient and other Narrative Narrative: Patient presents to the emergency department via EMS with complaint of generalized weakness. Patient with history of cirrhosis as well as history of A-fib. History of prior CVA and history of diabetes and hypertension. Was seen in the emergency department several days ago for same complaint of weakness and hypotension and apparently was not admitted. They were being seen by manager social and trying to arrange physical therapy at home as patient did not want to go to a rehab center. Patient now too weak to be at home and is not safe to be at home by himself. Normally would walk with a walker but now unable to. He denies fevers or chills or sweats. He denies vomiting currently but did throw up once 3 days ago. He has not had any diarrhea. He denies abdominal pain or chest pain. [facility] Medical History Acute and chronic respiratory failure with hypoxia Acute heart failure with reduced ejection fraction and diastolic dysfunction Ambulates with cane Anticoagulant long-term use Ascites Asthma Atherosclerosis of coronary artery of jamul heart without angina pectoris Atrial fibrillation and flutter Back pain Benign brain tumor Cholelithiasis Chronic combined systolic and diastolic CHF (congestive heart failure) Chronic kidney disease (CKD) Cirrhosis of liver Cirrhosis of liver with ascites CPAP (continuous positive airway pressure) dependence Diabetes Diabetes mellitus, type II Essential (primary) hypertension Former smoker History of atrial fibrillation History of CVA (cerebrovascular accident) History of ulceration Hyperlipidemia Injury of back Insulin dependent diabetes mellitus Longstanding persistent atrial fibrillation Non-rheumatic tricuspid valve insufficiency Nonischemic cardiomyopathy NSTEMI (non-ST elevated myocardial infarction) (10/09/19) ALBINO (obstructive sleep apnea) 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 Right inguinal hernia Right ventricular systolic dysfunction Secondary pulmonary arterial hypertension Seizure disorder Sleep apnea Stasis edema of both lower extremities Stroke/cerebrovascular accident Thyroid disease Wears glasses Home Medications insulin glargine 100 unit/mL (3 mL) subcutaneous pen 27 unit SQ QHS diabetes 10/30/18 [History Last Taken 01/30/19] bicalutamide 50 mg tablet (Casodex) 50 mg PO DAILY prostate 12/10/21 [History Last Taken 02/18/22 10:32] loratadine 10 mg capsule 10 mg PO DAILY PRN allergies 12/10/21 [History Last Taken 02/18/22 10:32] multivitamin 1 tab PO DAILY supplement 02/19/22 [History Last Taken 02/18/22 10:31] bumetanide 1 mg tablet 1 tab PO TID water pill 04/25/22 [History Last Taken Unknown] apixaban 5 mg tablet (Eliquis) See Rx Instructions .Route .COMPLEX #60 TABLETS 05/19/22 [Rx Last Taken Unknown] lisinopril 40 mg tablet 40 mg PO DAILY 09/09/22 [History Last Taken Unknown] omeprazole 20 mg capsule,delayed release 20 mg PO BID 09/09/22 [History Last Taken Unknown] baclofen 20 mg tablet 20 mg PO TID #90 tabs 12/23/22 [Rx Last Taken Unknown] carvedilol 6.25 mg tablet 6.25 mg PO BID This is a dose increase #180 tabs 03/10/23 [Rx Last Taken Unknown] albuterol 90 mcg/actuation aerosol inhaler 180 mcg inhalation Q6H PRN Shortness Of Breath 04/11/23 [History Last Taken Unknown] budesonide-formoterol HFA 80 mcg-4.5 mcg/actuation aerosol inhaler 2 puff inhalation BID 04/11/23 [History Last Taken Unknown] cyanocobalamin (vitamin B-12) 1,000 mcg tablet 1,000 mcg PO DAILY 04/11/23 [History Last Taken Unknown] fluticasone furoate 100 mcg-vilanterol 25 mcg/dose inhalation powder 1 ea inhalation DAILY 04/11/23 [History Last Taken Unknown] tamsulosin 0.4 mg capsule 0.4 mg PO QHS 04/11/23 [History Last Taken Unknown] Allergy/AdvReac Type Severity Reaction Status Date / Time acetaminophen AdvReac Other Verified 01/06/23 13:44 oxycodone AdvReac hallucinati Verified 01/06/23 13:44 ons Family History Daughter Heart disease valve replacement/chf Diabetes Mother Thyroid disorder Surgical History Biventricular ICD (implantable cardioverter-defibrillator) in place (10/12/19) H/O excision of tumor of brain meninges (2011) History of arthroplasty of right hip History of cardiac catheterization History of cardioversion (05/05/20) History of left heart catheterization (08/31/19) History of percutaneous coronary intervention (10/10/19) History of right and left heart catheterization History of right hip hemiarthroplasty History of tonsillectomy Social History household members: none Smoking Status: Former smoker how long ago did patient quit smokin years second hand exposure: No alcohol intake: never substance use type: does not use regla/pentecostal: None seatbelt use: always ROS ROS ED Review of Systems ROS Unobtainable: other Constitutional Constitutional ED: Reports lethargy; Denies chills, fever(s), sweats or weight loss Eyes Eyes: Denies blurry vision, change in vision or diplopia ENT ENT ED: Denies rhinorrhea or sore throat Cardiovascular Cardiovascular: Denies chest pain, orthopnea or racing heartbeat Respiratory/Chest Respiratory/Chest: Denies cough, dyspnea, dyspnea on exertion, orthopnea or sputum Gastrointestinal Gastrointestinal: Denies abdominal pain, diarrhea, nausea or vomiting Genitourinary Genitourinary ED: Denies dysuria, hematuria or urinary frequency Musculoskeletal Musculoskeletal: Denies arthralgias, back pain, myalgias or neck pain Integumentary Denies abscess, Abrasions or rash Neurologic Neurologic: Reports weakness; Denies headache(s) Psychiatric Psychiatric: Denies anxiety, depression or suicidal thoughts Endocrine Endocrinology: Denies polydipsia, polyphagia or polyuria Hematologic/Lymphatic Hematologic/Lymphatic: Denies easy bleeding, easy bruising or lymphadenopathy Allergic/Immunologic Allergic/Immunologic ED: Denies mouth swelling, tongue swelling or urticaria EXAM Physical Exam Const Vital Signs: 04/13/23 14:09 04/13/23 14:12 Temperature 97.9 F Temperature Source Oral Pulse Rate 71 Respiratory Rate 18 Respiratory Effort Normal Blood Pressure 106/77 Blood Pressure Mean 86 Pulse Ox 98 Oxygen Delivery Method Room Air Positive well nourished and well developed General Appearance ED: well developed and NAD HEENT Reports TM's clear and moist mucous membranes normocephalic and atraumatic; Negative for trauma or tenderness Tympanic Membrane ED: Yes TM's clear Eyes PERRL and EOMs intact bilaterally General Eye ED: Negative for pale conjunctiva or scleral icterus Neck no lymphadenopathy, supple and no JVD General: Negative for tenderness Chest Wall inspection of chest normal and palpation of chest normal Chest: Negative for tenderness Resp normal respiratory effort and clear to auscultation bilaterally Effort and Inspection: Negative for respiratory distress or pain with movement Auscultation: Negative for rhonchi, wheezes or diminished lung sounds Cardio regular rate, regular rhythm, S1 normal heart sound, S2 normal heart sound and no murmurs Peripheral Pulses: pulses 2+ throughout GI normal to inspection, nondistended, normoactive bowel sounds, soft to palpation, non-tender, non-distended and no masses Back/Spine no CVA tenderness and no thoracic nor lumbar tenderness Extremity normal to inspection General Extremety ED: Negative for edema General Extremity: Negative for edema Neuro oriented x3, CN's II-XII intact bilaterally, no sensory deficits noted and gait normal Sensorium / Orientation: awake, alert, oriented to person, oriented to place and oriented to time Motor Exam: strength 5/5 throughout and strength abnormal Psych mental status grossly normal Skin no rashes or lesions noted and no wounds MDM MDM MDM Narrative Medical decision making narrative: Patient presents with generalized weakness and deconditioning. IV line established on arrival. Patient was ordered a liter normal same fluid bolus. CBC with differential showed a normal white count 7.3 with hemoglobin of 13 and platelet count of 120. Chemistries unremarkable. BUN was 38 and creatinine 1.76. LFTs and lipase normal. Urinalysis ordered and pending. Care of patient turned over to evening physician awaiting urinalysis and likely admission for placement. Lab Data Attestation: I reviewed the patient's lab results. Labs: Laboratory Results - last 24 hr 04/13/23 04/13/23 15:20 15:20 WBC 7.3 RBC 4.04 L Hgb 13.0 Hct 39.1 L MCV 96.8 H MCH 32.2 H MCHC 33.2 RDW Std Deviation 49.0 H RDW Coeff of Yonathan 13.8 Plt Count 120 L MPV 11.5 Immature Gran % (Auto) 1.000 H Neut % (Auto) 80.2 H Lymph % (Auto) 7.0 L Barnwell % (Auto) 8.1 Eos % (Auto) 3.3 Baso % (Auto) 0.4 Absolute Neuts (auto) 5.9 Absolute Lymphs (auto) 0.51 L Nucleated RBC % 0 Sodium 138 Potassium 4.0 Chloride 103 Carbon Dioxide 29.0 Anion Gap 6 BUN 38 H Creatinine 1.76 H Estim Creat Clear Calc 39.05 Est GFR (MDRD) Af Amer 49 L Est GFR (MDRD) Non-Af 41 L BUN/Creatinine Ratio 21.6 H Glucose 134 H Calcium 9.7 Total Bilirubin 0.60 AST 13 L ALT 7 L Alkaline Phosphatase 117 Troponin I High Sens 76 Total Protein 7.7 Albumin 3.7 Globulin 4.0 Albumin/Globulin Ratio 0.9 Lipase 13 Radiography Diagnostic Testing: Clinical Impression(s) from Imaging Studies Chest X-Ray 04/13/23 15:25 IMPRESSION: No acute mouth is seen. Stable examination. Electronically Signed: Erik Sandoval MD at 15:36 EDT Reading Location ID and State: [facility] / [place] , Service support , 1 view chest x-ray obtained interpreted myself as no acute disease process. Radiology in agreement. EKG Initial EKG: Attestation: I personally reviewed and interpreted this EKG as follows: Comments: Ventricularly paced rhythm with a rate of 72 bpm Discharge Plan Triage Chief Complaint: Weakness ED Provider: Jo-Ann Bliss Dx/Rx/DC Orders Clinical Impression: Generalized weakness, Adult failure to thrive, VALENCIA (acute kidney injury), Transient hypotension Prescriptions: No Action bicalutamide [Casodex] 50 mg tablet 50 mg PO DAILY loratadine 10 mg capsule 10 mg PO DAILY PRN (Reason: allergies) omeprazole 20 mg capsule,delayed release(DR/EC) 20 mg PO BID lisinopril 40 mg tablet 40 mg PO DAILY baclofen 20 mg tablet 20 mg PO TID Qty: 90 5RF insulin glargine 100 UNIT/ML insulin pen 27 unit SQ QHS multivitamin Tablet 1 tab PO DAILY bumetanide 1 mg tablet 1 tab PO TID Hold Instructions: Resume on 04/29/22. Label Comments: TAKE 3 TABLETS BY MOUTH ONCE DAILY albuterol 90 mcg/actuation Aerosol 180 mcg INHALATION Q6H PRN (Reason: Shortness Of Breath) Rx Instructions: (2 puffs) budesonide-formoterol 80-4.5 mcg/actuation Hfa Aerosol Inhaler 2 puff INHALATION BID cyanocobalamin (vitamin B-12) 1,000 mcg Tablet 1,000 mcg PO DAILY fluticasone furoate-vilanterol 100-25 mcg/dose Blister With Device 1 ea INHALATION DAILY tamsulosin 0.4 mg Capsule 0.4 mg PO QHS Eliquis 5 mg tablet See Rx Instructions .ROUTE .COMPLEX Qty: 60 11RF Dose Instruction: TAKE ONE (1) TABLET BY MOUTH TWICE DAILY Rx Instructions: TAKE ONE (1) TABLET BY MOUTH TWICE DAILY carvedilol 6.25 mg tablet 6.25 mg PO BID Qty: 180 3RF Rx Instructions: must administer with a meal/food Primary Care Provider: Pratibha Canales Referrals: Pratibha Canales MD [Primary Care Provider] -
--- NOTE | 2023-04-13 15:06 | CM.ED ---
Social Work CM Assessment SW Face to Face with patient for initial transition planning/care coordination assessment. SW introduced self and role at [facility]. Patient lying in bed, alert and oriented. Patient willing to participate in assessment and HCPOA Bob Matthew present to assist with information.? Care providers, pharmacy, and demographics verified. Pt has been caring for self at home but had a [facility] eval with [facility] today for services. SWStevan, from [facility] called prior to transport to the ED to discuss patient needs. [facility] SW reports patient is unable to care for self at this time and is in need of SNF level of care, not appropriate for home health. [facility] SW also reports patient is in need of medical care for low blood pressure concerns. [facility] SW reports she and POA have been in contact with [facility] for placement. POA notes that patient sees specialists for prostate cancer, liver, and neurology. SW to follow for discharge planning. PCP: [facility] Specialists: Dr. Sal, Dr. Abreu. and Dr. Loredo Preferred Pharmacy: [facility] Insurance:[facility] A[facility] Prescription Benefit:?Yes Living Will/HPOA: Bob Castro LNOK: No family per POA whom took over HCPOA when patient's daughter Living Arrangements: Independent Transportation: No longer drives, HCPOA comes from [place] to take patient to appointments. DME/HHC: Pt was trying to get services with [facility]. POA reports patient has all needed medical equipment at home from previous hip surgery and had PT with [facility]. POA reports he is just too weak to be home by himself and use his equipment. Reports mobility chair, lift chair, walker, rollator, Cpap, pulse ox, shower transfer bench, bed rails, shower bars, raised toilet seat, and bedside commode. Disposition Plan: SW to follow for PT/OT evaluations and make formal referral to [facility] as requested by [facility] SW, patient, and POA. Tyesha Dunbar ACUTE CARE NURSE, KENNEL HELPER
[2023-04-13] MEDS: 0.9% Normal Saline 1,000 ML 150 ML IV (15:19)
--- NOTE | 2023-04-13 15:25 | RAD_ITS ---
STUDY: X-RAY CHEST REASON FOR EXAM: Male, 72 years old. Weakness TECHNIQUE: Single AP portable view of the chest. COMPARISON: Comparison is made with prior study April 10, 2023 FINDINGS: EKG electrodes are seen. The lungs are clear and expanded. There is no demonstrated pleural abnormality. Mild cardiomegaly.. A left-sided dual-chamber pacemaker is seen. Normal mediastinum and ashly. Normal visualized pulmonary arteries. There is atherosclerotic tortuosity of the aortic arch and descending thoracic aorta. Normal visualized thoracic spine. There is degenerative osteoarthritis of the bilateral shoulders. There is no demonstrated abnormality of the visualized soft tissue structures of the upper abdomen. RAD/Chest 1 View (Portable) IMPRESSION: No acute mouth is seen. Stable examination. Electronically Signed: Erik Sandoval MD at 15:36 EDT ,
[2023-04-13 15:54] LABS: Absolute Lymphocyte Count 0.51 X10^3/uL (0.83-4.51); Absolute Neutrophil Count 5.9 X10^3/uL (2.0-7.7); Basophil# 0.03 X10^3/uL; Basophil% 0.4 % (0-1); Eosinophil# 0.24 X10^3/uL; Eosinophils% 3.3 % (0-5); Hematocrit 39.1 % (40-54); Lymphocyte # 0.51 X10^3/ul (0.83-4.51); Mean Corp Hgb Conc 33.2 g/dL (32-36); Mean Corpuscular Hgb 32.2 pg (27.0-32.0); Mean Corpuscular Volume 96.8 fL (80-94); Mean Platelet Vol. 11.5 fl (6.2-12.0); Monocyte# 0.59 X10^3/uL; Monocyte% 8.1 % (0-10); NRBC Flagged by Analyzer 0 % (0-5); Neutrophil # 5.87 X10^3/uL (2.7-7.7); Neutrophil % 80.2 % (47-70); POSITIVE DIFFERENTIAL YES; Platelet Count 120 K/mm3 (150-450); RBC Distribution Width CV 13.8 % (11.6-14.6); Red Blood Count 4.04 M/mm3 (4.6-6.2); White Blood Count 7.3 K/mm3 (4.4-11.0)
[2023-04-13 15:56] LABS: Differential Indicated SCAN CRITERIA MET
[2023-04-13 16:08] LABS: ALB/GLOB Ratio 0.9 RATIO (0.9-2.4); AST(SGOT) 13 U/L (15-37); Alanine Aminotransfer ALT/SGPT 7 U/L (16-61); Albumin, Serum 3.7 g/dL (3.2-5.0); Alkaline Phosphatase 117 U/L (45-117); Anion Gap 6 (5-15); BUN 38 mg/dL (7-18); BUN/Creat Ratio 21.6 RATIO (10-20); Calcium,Total 9.7 mg/dL (8.5-10.1); Chloride 103 mmol/L (98-107); Creatinine, Serum 1.76 mg/dL (0.70-1.30); EST Glomerular Filtration Rate 41 mL/min (>60); Est Glom Filt Rate - Afr Amer 49 mL/min (>60); Estimated Creatinine Clearance 39.05 ml/min; Glucose 134 mg/dL (74-106); Lipase 13 U/L (13-75); Protein, Total 7.7 g/dL (6.4-8.2); Sodium Level 138 mmol/L (136-145); Troponin-I HS 76 pg/mL (3.0-78.0)
[2023-04-13] MEDS: 0.9% Normal Saline 1,000 ML 999 ML IV (16:25)
[2023-04-13 16:26] VITALS: BP 120/80; PULSE 72; RESP 16; O2SAT 96
[2023-04-13 16:47] LABS: Differential Comment SCANNED
[2023-04-13 16:52] LABS: Bacteria 0 SEEN /hpf (None Seen); Mucous, Urine 0 SEEN /hpf (<or=2+); Red Blood Cells-Urine 0 SEEN /hpf (0-5); Squamous Epithelial Cells - UA 0 SEEN /hpf (0-5); White Blood Cells 0 SEEN /hpf (0-5)
[2023-04-13 17:00] LABS: Color, Urine Yellow (Yellow); Glucose, Dipstick Normal (Normal); Ketone-Dipstick Negative (Negative); Leukocyte Esterase-Dipstick Negative /ul (Negative); Nitrite-Dipstick Negative (Negative); Occult Blood-Urine Negative /ul (Negative); Protein-Dipstick Negative (Negative); Urine Bilirubin Dipstick Negative (Negative); Urine Clarity Clear (Clear); Urine Urobilinogen Normal (Normal); Urine pH 6.5 (5.0 - 8.0)
--- NOTE | 2023-04-13 17:45 | HP.PCM.HOS_ITS ---
HPI - General General Date of Admission: 04/13/23 Date of Service: 04/13/23 Chief Complaint: Increased weakness and hypotension at home. HPI Narrative STEPH BAUMANN, is a 72 M who was just admitted from 04/10/2023 - 04/12/2023 for adult failure to thrive. Patient has been getting weaker and more debilitated at home and there is also since Parkinson's disease for which she is started on carbidopa levodopa about 3 weeks ago as per the caregiver, Mrs. Rojas. Patient blood pressure was low at home and his head was slammed down in the morning. He was very lethargic with no energy. As per EMS report, patient was alert awake oriented x3. No acute chest pain shortness of breath or syncope. No fever. No acute URI symptoms. His caregiver lives in [place] and comes twice a week to take care of him but she states he needs more care therefore possible SNF placement. Patient is to make really not safe at home by himself. Usually patient is on walker but he was not able to walk with a walker after discharge. Denies any diarrhea but patient had small amount of bilious spitting out, not forceful vomiting. In ED his blood pressure was found 106/77, heart rate 71 no tachypnea or hypoxia. Afebrile. His blood pressure profile during last hospital course varied between 115/74- 136/88. Twelve-lead EKG shows ventricular paced rhythm with occasional PVCs 72 beats per hour. FOR[facility]LY [facility], [facility] Medical History Acute and chronic respiratory failure with hypoxia Acute heart failure with reduced ejection fraction and diastolic dysfunction Ambulates with cane Anticoagulant long-term use Ascites Asthma Atherosclerosis of coronary artery of [place] heart without angina pectoris Atrial fibrillation and flutter Back pain Benign brain tumor Cholelithiasis Chronic combined systolic and diastolic CHF (congestive heart failure) Chronic kidney disease (CKD) Cirrhosis of liver Cirrhosis of liver with ascites CPAP (continuous positive airway pressure) dependence Diabetes Diabetes mellitus, type II Essential (primary) hypertension Former smoker History of atrial fibrillation History of CVA (cerebrovascular accident) History of ulceration Hyperlipidemia Injury of back Insulin dependent diabetes mellitus Longstanding persistent atrial fibrillation Non-rheumatic tricuspid valve insufficiency Nonischemic cardiomyopathy NSTEMI (non-ST elevated myocardial infarction) (10/09/19) ALBINO (obstructive sleep apnea) 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 Right inguinal hernia Right ventricular systolic dysfunction Secondary pulmonary arterial hypertension Seizure disorder Sleep apnea Stasis edema of both lower extremities Stroke/cerebrovascular accident Thyroid disease Wears glasses Home Medications insulin glargine 100 unit/mL (3 mL) subcutaneous pen 27 unit SQ QHS diabetes 10/30/18 [History Last Taken 04/12/23] bicalutamide 50 mg tablet (Casodex) 50 mg PO DAILY prostate 12/10/21 [History Last Taken 04/13/23] multivitamin 1 tab PO DAILY supplement 02/19/22 [History Last Taken 04/13/23] bumetanide 1 mg tablet 1 tab PO TID water pill 04/25/22 [History Last Taken 04/13/23] lisinopril 40 mg tablet 40 mg PO DAILY 09/09/22 [History Last Taken 04/12/23] omeprazole 20 mg capsule,delayed release 20 mg PO BID 09/09/22 [History Last Taken 04/13/23] baclofen 20 mg tablet 20 mg PO TID #90 tabs 12/23/22 [Rx Last Taken 04/13/23] cyanocobalamin (vitamin B-12) 1,000 mcg tablet 1,000 mcg PO DAILY 04/11/23 [History Last Taken 04/13/23] apixaban 5 mg tablet (Eliquis) 5 mg PO BID 04/13/23 [History Last Taken 04/13/23] carvedilol 3.125 mg tablet 3.125 mg PO BID BP 04/13/23 [History Last Taken 04/12/23] Allergy/AdvReac Type Severity Reaction Status Date / Time acetaminophen AdvReac Other Verified 01/06/23 13:44 oxycodone AdvReac hallucinati Verified 01/06/23 13:44 ons Family History Daughter Heart disease valve replacement/chf Diabetes Mother Thyroid disorder Surgical History Biventricular ICD (implantable cardioverter-defibrillator) in place (10/12/19) H/O excision of tumor of brain meninges (2011) History of arthroplasty of right hip History of cardiac catheterization History of cardioversion (05/05/20) History of left heart catheterization (08/31/19) History of percutaneous coronary intervention (10/10/19) History of right and left heart catheterization History of right hip hemiarthroplasty History of tonsillectomy Social History household members: none Smoking Status: Former smoker how long ago did patient quit smokin years second hand exposure: No alcohol intake: never substance use type: does not use regla/amish: None seatbelt use: always ROS ROS Narrative 14 ROS mainly gathered from patient's caregiver Mrs. Rojas. Patient has hard time in recall probably might have been gradual onset dementia. Constitutional: Extreme fatigue and weakness. No fever. HEENT: Reports systems reviewed and no addt'l complaints, except as documented Respiratory/Chest: No acute shortness of breath or respiratory distress or wheezing. CVS: History of heart failure but no acute chest pain or tightness. Has AICD. Gastrointestinal: Denies coffee ground emesis, hematemesis. Small amount of bilious vomiting. Genitourinary: Dark yellow urine. Denies burning urination or new urinary tract symptoms Musculoskeletal: Denies acute injury. Not able to stand up or walk even on walker. Neurologic: Denies seizure-like symptoms. Gradual worsening of Parkinson's disease. skin: Chronic superficial, none decubitus healing ulcer over stuart of left leg. Endocrinology: Reports systems reviewed and no addt'l complaints, except as documented Hematologic/Lymphatic: Reports systems reviewed and no addt'l complaints, except as documented Rest 14 ROS are negative except as mentioned in HPI Vital Signs Vital Signs Vital Signs: 04/13/23 14:09 04/13/23 14:12 04/13/23 16:26 Temperature 97.9 F Temperature Source Oral Pulse Rate 71 72 Respiratory Rate 18 16 Respiratory Effort Normal Blood Pressure 106/77 120/80 Blood Pressure Mean 86 93 Pulse Ox 98 96 Oxygen Delivery Method Room Air Room Air Weight Weight: 184 lb 4.903 oz Body Mass Index (BMI) 27.2 Physical Exam Narrative General: Awake, oriented x3, Cooperative. Looks fatigued. BMI 27.2 kg/m? HEENT: Atraumatic, PERRLA, EOMI, Normocephalic Oral: Oral mucosa are dry. No Gingival or Mucosal Lesions/ Ulcerations Neck: Supple, No JVD, Negative Carotid Bruits Lungs: Air entry diminished in bilateral lung bases. No crepitation/rhonchi Cardiovascular: Ventricular paced rhythm, Normal S1, Normal S2, systolic murmur over right second ICS and LLSB. Abdomen: Bowel Sounds Present, Soft, Non Tender, Non-Distended : No renal angle tenderness. No suprapubic tenderness. Extremities: No edema, Capillary Refill Less than 3 Seconds Skin: No rashes, No breakdown Musculoskeletal: Small superficial ulcer over left stuart of leg. Moderate stiffness/rigidity over knee and hip joints. No Tenderness to Palpation of Joints or Extremities Neurological: Chronic left-sided facial droop. Benign brain tumor resection in 2012 with a scar. DTR 2/4, muscle strength 4/5 at knees and hip joints Psych/Mental Status: Flat affect. Early forgetfulness, problem in recall, dementia Results Lab / Micro Data Result Diagrams: 04/13/23 15:20 04/13/23 15:20 Labs: Laboratory Results - last 24 hr 04/13/23 15:20: WBC 7.3, RBC 4.04 L, Hgb 13.0, Hct 39.1 L, MCV 96.8 H, MCH 32.2 H, MCHC 33.2, RDW Std Deviation 49.0 H, RDW Coeff of Yonathan 13.8, Plt Count 120 L, MPV 11.5, Immature Gran % (Auto) 1.000 H, Neut % (Auto) 80.2 H, Lymph % (Auto) 7.0 L, [place] % (Auto) 8.1, Eos % (Auto) 3.3, Baso % (Auto) 0.4, Absolute Neuts (auto) 5.9, Absolute Lymphs (auto) 0.51 L, Nucleated RBC % 0, Differential Comment SCANNED 04/13/23 15:20: Sodium 138, Potassium 4.0, Chloride 103, Carbon Dioxide 29.0, Anion Gap 6, BUN 38 H, Creatinine 1.76 H, Estim Creat Clear Calc 39.05, Est GFR (MDRD) Af Amer 49 L, Est GFR (MDRD) Non-Af 41 L, BUN/Creatinine Ratio 21.6 H, Glucose 134 H, Calcium 9.7, Total Bilirubin 0.60, AST 13 L, ALT 7 L, Alkaline Phosphatase 117, Troponin I High Sens 76, Total Protein 7.7, Albumin 3.7, Globulin 4.0, Albumin/Globulin Ratio 0.9, Lipase 13 04/13/23 16:30: Urine Color Yellow, Urine Clarity Clear, Urine pH 6.5, Ur Specific [place] 1.010, Urine Protein Negative, Urine Glucose (UA) Normal, Urine Ketones Negative, Urine Occult Blood Negative, Urine Nitrite Negative, Urine Bilirubin Negative, Urine Urobilinogen Normal, Ur Leukocyte Esterase Negative, Urine RBC 0 SEEN, Urine WBC 0 SEEN, Ur Squamous Epith Cells 0 SEEN, Urine Bacteria 0 SEEN, Urine Mucus 0 SEEN Radiology Impression Chest X-Ray 04/13/23 15:25 IMPRESSION: No acute mouth is seen. Stable examination. Electronically Signed: Erik Sandoval MD at 15:36 EDT , Assessment & Plan Assessment/Plan (1) Adult failure to thrive: (2) Generalized weakness: (3) VALENCIA (acute kidney injury): PLAN: Plan This is a 72-year-old gentleman is being admitted mainly as he cannot take care of himself with increased weakness, hypotension and dependent ADL 1. VALENCIA most likely due to low blood pressure on CKD stage IIIb:Patient is being admitted on MedSurg floor. BP as per EMS was 102/88, heart rate 70. BP profile does not meet criteria of hypotension. His BUN/creatinine went up 38/1.76 from baseline 1.25. But patient might have VALENCIA due to decreased renal perfusion/plasma flow. Patient was started on normal saline in ED, changed to Ringer lactate at 75 mill per hour for 1 L. Patient also has heart failure as mentioned below. 2. Adult failure to thrive, dependent ADL: Patient gradually getting more weaker debilitated and not able to walk even on a walker. PT and OT, fall precaution. associate program manager consult for custodial placement.. 3. Chronic HFrEF, nonischemic cardiomyopathy with EF 20 to 25% status post biventricular AICD, paroxysmal A-fib: Patient follows Dr. Gonzáles. Hold bumetanide. Continue carvedilol 3.25 twice daily and Eliquis. Heart rate is controlled. If kidney function comes to baseline resume diuretics 4. History of recurrent CVA: Has mild residual left-sided weakness and left facial droop at baseline, history of right MCA stroke in 2013. Patient had right frontal parietal meningioma resected in 2010 and a syncopal enkephalin malacia in this region. PT OT on board. #Hypertension: Currently blood pressure on lower side. Hold antihypertensive medications except carvedilol. #Type 2 diabetes mellitus: Glucose 202 by EMS. Glucose 134 in BMP. Lantus dose decreased but titrate as per Accu-Cheks. Accu-Chek insulin coverage Humalog sliding scale. #GERD: On PPI #Parkinson's disease: On carbidopa and levodopa. As per caregiver he is on Parkinson's medications started in December [address] Horton. Patient has gait difficulty. His blood pressure might be low or fluctuating because worsening autonomic symptoms of Parkinson's disease. #Obstructive sleep apnea: On CPAP nightly #Seizure disorder: On topiramate #History of prostate cancer on bicalutamide DVT prophylaxis: Already on Eliquis Living will/advanced directive/end of life care: Patient does have living will or advanced directive. His power of lapel padder for health his caregiver Mrs. Rojas, her daughter. After discussion of benefits/risks procedures involved with full code, DNR CC arrest and DNR CC, the patient and her daughter opted for full code. I expressed my concern that he might have high risk of refracture, chest wall contusion and soft tissue injury because of CPR and aggressive measures with little long-term benefit. Her daughter expressed understanding and she will think about it. For now, the patient and her daughter do want artificial life support including intubation, tube feed, ventilator and/chest compression, central venous catheter, vasopressor and DC shock if needed Total time spent in [id number] encounter in discussion of advanced directive 17 minutes. 04/13/23 15:20: Sodium 138, Potassium 4.0, Chloride 103, Carbon Dioxide 29.0, Anion Gap 6, BUN 38 H, Creatinine 1.76 H, Estim Creat Clear Calc 39.05, Est GFR (MDRD) Af Amer 49 L, Est GFR (MDRD) Non-Af 41 L, BUN/Creatinine Ratio 21.6 H, Glucose 134 H, Calcium 9.7, Total Bilirubin 0.60, AST 13 L, ALT 7 L, Alkaline Phosphatase 117, Troponin I High Sens 76, Total Protein 7.7, Albumin 3.7, Globulin 4.0, Albumin/Globulin Ratio 0.9, Lipase 13 04/13/23 16:30: Urine Color Yellow, Urine Clarity Clear, Urine pH 6.5, Ur Specific [place] 1.010, Urine Protein Negative, Urine Glucose (UA) Normal, Urine Ketones Negative, Urine Occult Blood Negative, Urine Nitrite Negative, Urine Bi lirubin Negative, Urine Urobilinogen Normal, Ur Leukocyte Esterase Negative, Urine RBC 0 SEEN, Urine WBC 0 SEEN, Ur Squamous Epith Cells 0 SEEN, Urine Bacteria 0 SEEN, Urine Mucus 0 SEEN Clinical Impression(s) from Imaging Studies Chest X-Ray 04/13/23 15:25 IMPRESSION: No acute mouth is seen. Stable examination. Charges/Coding Visit Charges Inpatient E&M: 71167 Init Hosp L3 Procedures Hospitalists Procedures: 96014 Advncd Care Plan 30 Min
[2023-04-13 18:13] VITALS: BP 124/93; PULSE 73; RESP 16; TEMP 36; O2SAT 98
[2023-04-13 20:39] VITALS: BP 115/86; PULSE 70; RESP 18; TEMP 36.6; O2SAT 98
[2023-04-13] MEDS: Lactated Ringers 1,000 ML 75 ML IV (20:50)
[2023-04-13 20:55] LABS: Magnesium 2.1 mg/dL (1.6-2.6); Phosphorus 2.8 mg/dL (2.5-4.9)
[2023-04-13 21:06] VITALS: BMI 28.7
[2023-04-13] MEDS: Insulin Glargine-YFGN 100 UNIT/ML Pen 10 UNIT SC (21:49)
[2023-04-13] MEDS: Carvedilol 3.125 MG TABLET PO (21:49)
[2023-04-13] MEDS: APIXABAN 5 MG TABLET PO (21:49)
[2023-04-13] MEDS: Baclofen 10 MG Tablet PO (21:50)
[2023-04-13] MEDS: Pantoprazole Sodium 20 MG Tablet PO (21:50)
[2023-04-13 23:20] LABS: Bedside Glucose 120 mg/dL (74-106)
[2023-04-14 02:41] VITALS: BP 122/82; PULSE 70; RESP 16; TEMP 36.2; O2SAT 100
[2023-04-14 03:41] VITALS: BMI 28.8
[2023-04-14] MEDS: Baclofen 10 MG Tablet PO ×3 (05:53→20:21)
[2023-04-14] MEDS: Insulin Lispro 100 UNIT/ML INSULN.PEN SC ×4 (05:56→20:20)
[2023-04-14 06:17] LABS: Absolute Lymphocyte Count 0.49 X10^3/uL (0.83-4.51); Absolute Neutrophil Count 4.3 X10^3/uL (2.0-7.7); Basophil# 0.04 X10^3/uL; Basophil% 0.7 % (0-1); Differential Indicated SCAN CRITERIA MET; Eosinophil# 0.27 X10^3/uL; Eosinophils% 4.8 % (0-5); Hematocrit 38.5 % (40-54); Hemoglobin 12.5 g/dL (13.0-16.5); Lymphocyte # 0.49 X10^3/ul (0.83-4.51); Lymphocyte % 8.7 % (19-41); Mean Corp Hgb Conc 32.5 g/dL (32-36); Mean Corpuscular Hgb 32.6 pg (27.0-32.0); Mean Corpuscular Volume 100.5 fL (80-94); Monocyte# 0.46 X10^3/uL; Monocyte% 8.2 % (0-10); NRBC Flagged by Analyzer 0 % (0-5); Neutrophil # 4.33 X10^3/uL (2.7-7.7); Neutrophil % 76.7 % (47-70); POSITIVE DIFFERENTIAL YES; Platelet Count 112 K/mm3 (150-450); RBC Distribution Width CV 13.8 % (11.6-14.6); RBC Distribution Width SD 50.1 fl (35.1-43.9); Red Blood Count 3.83 M/mm3 (4.6-6.2); White Blood Count 5.6 K/mm3 (4.4-11.0)
[2023-04-14 06:31] LABS: Bedside Glucose 216 mg/dL (74-106)
[2023-04-14 06:43] LABS: Anisocytosis 1+; Differential Comment SCANNED; Macrocytosis 1+
[2023-04-14 07:08] LABS: Anion Gap 3 (5-15); BUN 28 mg/dL (7-18); BUN/Creat Ratio 19.9 RATIO (10-20); Calcium,Total 8.9 mg/dL (8.5-10.1); Chloride 107 mmol/L (98-107); Creatinine, Serum 1.41 mg/dL (0.70-1.30); EST Glomerular Filtration Rate 53 mL/min (>60); Est Glom Filt Rate - Afr Amer 64 mL/min (>60); Estimated Creatinine Clearance 48.75 ml/min; Glucose 221 mg/dL (74-106); Potassium 4.2 mmol/L (3.5-5.1); Sodium Level 139 mmol/L (136-145); Thyroid Stim Hormone (TSH) 0.87 uIU/mL (0.358-3.74)
[2023-04-14 07:20] VITALS: O2SAT 97
[2023-04-14] MEDS: Carvedilol 3.125 MG TABLET PO ×2 (09:52→20:20)
[2023-04-14] MEDS: Cyanocobalamin 500 MCG Tablet 1000 MCG PO (09:52)
[2023-04-14] MEDS: Pantoprazole Sodium 20 MG Tablet PO ×2 (09:52→20:21)
[2023-04-14] MEDS: APIXABAN 5 MG TABLET PO ×2 (09:52→20:20)
[2023-04-14] MEDS: Multivitamins,Therapeutic Tablet 1 TABLET PO (09:52)
[2023-04-14] MEDS: Psyllium 1 PACKET PO (09:52)
[2023-04-14] MEDS: BICALUTAMIDE 50 MG TABLET PO (09:53)
[2023-04-14 10:09] VITALS: BP 127/76; PULSE 73; RESP 16; TEMP 35.9; O2SAT 95
--- NOTE | 2023-04-14 10:36 | CASEMGMT ---
Addendum entered by Mary Cevallos 04/14/23 15:53: Social Work [facility] did accept pt. SW let pt and Bob who is in the room, know. Bob brought a lot of luggage for pt. SW informed Bob it may be more than transportation can take. She would like to take over some of his belongings now. SW gave her [facility]'s number to call directly to see if she can drop off any of his belongings ahead of time. SARITA Lozano Original Note: Social Work SW met w/pt, completed SDOH assessment, no needs at this time indicated. SW also spoke w/pt about SNF placement, SW provided to pt a list of long-term facilities in network w/pt's insurance, in preferred geographic area, complete with quality and resource use data. Pt confirmed does want to go to [facility]. SW explained will start referral process today. Pt states understanding. As per physician, pt may need to be here a couple of days. SW messaged d/c life care planner Kayleigh, she will send referral to [facility]. SW will continue to follow. SARITA Lozano
--- NOTE | 2023-04-14 10:43 | CASEMGMT ---
Social Work Pt was approved by insurance to go to [facility] today. SW notified physician. SW also let pt know, pt states understanding. SW will continue to follow, await discharge. SARITA Lozano
--- NOTE | 2023-04-14 10:44 | CASEMGMT ---
Discharge Planning Referrals sent to [facility] via [facility]. Kayleigh Valencia, Discharge Planning Asst.
[2023-04-14] MEDS: Acetaminophen 325 MG Tablet 650 MG PO (11:52)
[2023-04-14 12:08] LABS: Bedside Glucose 215 mg/dL (74-106)
--- NOTE | 2023-04-14 14:02 | PN_ITS ---
Subjective Subjective Patient seen and examined. He did complain of weakness. Patient was discharged just 2 days ago after being admitted and managed for generalized weakness and debility. At the time of his previous admission physical therapy deemed he would benefit from inpatient rehab. Patient however refused and insisted on going home despite being counseled that he would likely come back to the hospital very quickly. At that time he said he had a girlfriend in [place] who came over twice in a week to look after him. He went home and got very weak and debilitated so came back to the ED. Review of systems otherwise negative. He has remained hemodynamically stable. Objective Data Objective Data Vital Signs: Vital Signs Temp Pulse Resp BP Pulse Ox O2 Del Method 96.7 F L 73 16 127/76 H 95 Room Air 04/14/23 10:04/14/23 10:04/14/23 10:04/14/23 10:04/14/23 10:04/14/23 10:09 Oxygen Delivery Method Room Air Weight: 194 lb 7.163 oz Body Mass Index (BMI) 28.8 Intake & Output: Intake and Output for Last 24 Hours 04/12/23 04/13/23 04/14/23 23:59 23:59 23:59 Intake Total 1162.5 / 1262.5 1621.25 / 1621.25 Output Total 1250 / 1250 Balance 1162.5 / 862.5 371.25 / 371.25 Lab / Micro Data Result Diagrams: 04/14/23 05:40 04/14/23 05:40 Labs: Laboratory Results - last 24 hr 04/13/23 15:20: WBC 7.3, RBC 4.04 L, Hgb 13.0, Hct 39.1 L, MCV 96.8 H, MCH 32.2 H, MCHC 33.2, RDW Std Deviation 49.0 H, RDW Coeff of Yonathan 13.8, Plt Count 120 L, MPV 11.5, Immature Gran % (Auto) 1.000 H, Neut % (Auto) 80.2 H, Lymph % (Auto) 7.0 L, [place] % (Auto) 8.1, Eos % (Auto) 3.3, Baso % (Auto) 0.4, Absolute Neuts (auto) 5.9, Absolute Lymphs (auto) 0.51 L, Nucleated RBC % 0, Differential Comment SCANNED 04/13/23 15:20: Sodium 138, Potassium 4.0, Chloride 103, Carbon Dioxide 29.0, Anion Gap 6, BUN 38 H, Creatinine 1.76 H, Estim Creat Clear Calc 39.05, Est GFR (MDRD) Af Amer 49 L, Est GFR (MDRD) Non-Af 41 L, BUN/Creatinine Ratio 21.6 H, Glucose 134 H, Calcium 9.7, Total Bilirubin 0.60, AST 13 L, ALT 7 L, Alkaline Phosphatase 117, Troponin I High Sens 76, Total Protein 7.7, Albumin 3.7, Glob ulin 4.0, Albumin/Globulin Ratio 0.9, Lipase 13 04/13/23 15:20: Phosphorus 2.8, Magnesium 2.1 04/13/23 16:30: Urine Color Yellow, Urine Clarity Clear, Urine pH 6.5, Ur Specific [place] 1.010, Urine Protein Negative, Urine Glucose (UA) Normal, Urine Ketones Negative, Urine Occult Blood Negative, Urine Nitrite Negative, Urine Bilirubin Negative, Urine Urobilinogen Normal, Ur Leukocyte Esterase Negative, Urine RBC 0 SEEN, Urine WBC 0 SEEN, Ur Squamous Epith Cells 0 SEEN, Urine Bacteria 0 SEEN, Urine Mucus 0 SEEN 04/13/23 21:45: POC Glucose 120 H 04/14/23 05:40: WBC 5.6, RBC 3.83 L, Hgb 12.5 L, Hct 38.5 L, MCV 100.5 H, MCH 32.6 H, MCHC 32.5, RDW Std Deviation 50.1 H, RDW Coeff of Yonathan 13.8, Plt Count 112 L, MPV 11.0, Immature Gran % (Auto) 0.900, Neut % (Auto) 76.7 H, Lymph % (Auto) 8.7 L, [place] % (Auto) 8.2, Eos % (Auto) 4.8, Baso % (Auto) 0.7, Absolute Neuts (auto) 4.3, Absolute Lymphs (auto) 0.49 L, Nucleated RBC % 0, Differential Comment SCANNED, Anisocytosis 1+, Macrocytosis 1+ 04/14/23 05:40: Sodium 139, Potassium 4.2, Chloride 107, Carbon Dioxide 29.0, Anion Gap 3 L, BUN 28 H, Creatinine 1.41 H, Estim Creat Clear Calc 48.75, Est GFR (MDRD) Af Amer 64, Est GFR (MDRD) Non-Af 53 L, BUN/Creatinine Ratio 19.9, Gl ucose 221 H, Calcium 8.9, TSH 0.87 04/14/23 05:52: POC Glucose 216 H 04/14/23 11:46: POC Glucose 215 H Radiography Diagnostic Testing: Radiology Impression Chest X-Ray 04/13/23 15:25 IMPRESSION: No acute mouth is seen. Stable examination. Electronically Signed: Erik Sandoval MD at 15:36 EDT , Physical Exam Const alert, oriented x3 and no apparent distress Constitutional Narrative: Very frail and weak HEENT normocephalic and head/scalp atraumatic Mouth: dry mucous membranes Eyes PERRL and EOMs intact bilaterally Neck supple and no JVD Lymph Lymphatic: no lymphadenopathy noted and no lymphedema noted Resp normal respiratory effort, normal air movement and clear to auscultation bilaterally Cardio regular rate, regular rhythm, S1 normal heart sound, S2 normal heart sound and no murmurs GI normal to inspection, nondistended, normoactive bowel sounds, soft to palpation, non-tender and non-distended Extremity normal capillary refill, no clubbing, cyanosis or edema and no calf tenderness Skin General Skin Exam: no breakdown and turgor normal Neuro CN's II-XII intact bilaterally, no focal motor deficits, no sensory deficits noted and deep tendon reflexes 2+ bilaterally Motor Exam: general weakness Psych thought process normal, cooperative and affect normal Appearance: appropriate Assessment & Plan Assessment/Plan (1) Generalized weakness: (2) Adult failure to thrive: (3) VALENCIA (acute kidney injury): PLAN: Plan #VALENCIA on CKD IIIB * Creatinine has trended down slightly to 1.4 today. Continue gentle hydration with IV fluids. * Likely due to decreased intake as patient is not eating and drinking well. * #Debility with failure to thrive * Patient very weak and unable to ambulate. PT OT on board. Fall precautions. Will need placement. * #History of nonischemic cardiomyopathy: Has known EF of 20 to 25% and status postplacement of a biventricular ICD. On spironolactone and Bumex #Paroxysmal A-fib: On carvedilol and Eliquis #Recurrent CVA: Has residual mild left-sided weakness. PT OT on board. #Hypertension: On spironolactone #Type 2 diabetes mellitus: On Lantus. Insulin sliding scale. Accu-Cheks ACHS. #GERD: PPI #History of Parkinson's disease: On levodopa carbidopa #Seizure disorder: On topiramate #History of prostate cancer: S/p radiation therapy. Currently on bicalutamide. #Obstructive sleep apnea: On CPAP nightly. DVT prophylaxis; on eliquis Disposition: awaiting placement. * Charges/Coding Visit Charges Inpatient E&M: 27468 Subs Hosp L2
[2023-04-14 14:34] VITALS: BP 124/72; PULSE 70; RESP 16; TEMP 36.2; O2SAT 100
[2023-04-14 19:01] LABS: Bedside Glucose 305 mg/dL (74-106)
[2023-04-14 20:16] VITALS: BP 105/62; PULSE 70; RESP 15; TEMP 36.4; O2SAT 99
[2023-04-14] MEDS: Insulin Glargine-YFGN 100 UNIT/ML Pen 10 UNIT SC (20:21)
[2023-04-14 20:44] LABS: Bedside Glucose 274 mg/dL (74-106)
[2023-04-15 03:00] VITALS: BP 134/91; PULSE 70; RESP 15; TEMP 36.6; O2SAT 99
[2023-04-15 05:36] VITALS: BMI 28.8
[2023-04-15] MEDS: Baclofen 10 MG Tablet PO ×3 (06:36→22:18)
[2023-04-15] MEDS: Insulin Lispro 100 UNIT/ML INSULN.PEN SC ×3 (06:36→22:18)
[2023-04-15 06:39] LABS: Absolute Lymphocyte Count 0.51 X10^3/uL (0.83-4.51); Absolute Neutrophil Count 4.6 X10^3/uL (2.0-7.7); Basophil# 0.04 X10^3/uL; Basophil% 0.7 % (0-1); Hematocrit 41.8 % (40-54); Hemoglobin 13.3 g/dL (13.0-16.5); Lymphocyte # 0.51 X10^3/ul (0.83-4.51); Lymphocyte % 8.5 % (19-41); Mean Corp Hgb Conc 31.8 g/dL (32-36); Mean Corpuscular Hgb 32.4 pg (27.0-32.0); Monocyte# 0.51 X10^3/uL; Monocyte% 8.5 % (0-10); NRBC Flagged by Analyzer 0 % (0-5); Neutrophil # 4.59 X10^3/uL (2.7-7.7); Neutrophil % 76.5 % (47-70); POSITIVE DIFFERENTIAL YES; Platelet Count 113 K/mm3 (150-450); RBC Distribution Width CV 13.9 % (11.6-14.6); RBC Distribution Width SD 51.8 fl (35.1-43.9)
[2023-04-15 06:41] LABS: Differential Indicated SCAN CRITERIA MET
[2023-04-15 07:06] LABS: Anion Gap 4 (5-15); BUN 22 mg/dL (7-18); Calcium,Total 9.4 mg/dL (8.5-10.1); Chloride 109 mmol/L (98-107); Creatinine, Serum 1.16 mg/dL (0.70-1.30); EST Glomerular Filtration Rate 66 mL/min (>60); Est Glom Filt Rate - Afr Amer 80 mL/min (>60); Estimated Creatinine Clearance 59.26 ml/min; Glucose 190 mg/dL (74-106); Potassium 4.1 mmol/L (3.5-5.1); Sodium Level 140 mmol/L (136-145)
[2023-04-15 07:22] VITALS: O2SAT 95
[2023-04-15 07:35] LABS: Macrocytosis 1+; Platelet Estimate ADEQUATE (ADEQ)
[2023-04-15 10:12] VITALS: BP 133/78; PULSE 77; RESP 18; TEMP 36.3; O2SAT 99
[2023-04-15] MEDS: Pantoprazole Sodium 20 MG Tablet PO ×2 (10:18→22:18)
[2023-04-15] MEDS: APIXABAN 5 MG TABLET PO ×2 (10:18→22:18)
[2023-04-15] MEDS: Carvedilol 3.125 MG TABLET PO ×2 (10:18→22:18)
[2023-04-15] MEDS: Cyanocobalamin 500 MCG Tablet 1000 MCG PO (10:18)
[2023-04-15] MEDS: Multivitamins,Therapeutic Tablet 1 TABLET PO (10:18)
[2023-04-15] MEDS: BICALUTAMIDE 50 MG TABLET PO (10:19)
[2023-04-15] MEDS: Psyllium 1 PACKET PO (10:19)
--- NOTE | 2023-04-15 10:58 | PN_ITS ---
Subjective Subjective Patient seen and examined. He had no complaints and had an uneventful night. Review of systems was otherwise negative. He has remained hemodynamically stable. He is awaiting placement. Objective Data Objective Data Vital Signs: Vital Signs Temp Pulse Resp BP Pulse Ox O2 Del Method 97.4 F L 77 18 133/78 H 99 Room Air 04/15/23 10:12 04/15/23 10:12 04/15/23 10:12 04/15/23 10:12 04/15/23 10:12 04/15/23 10:15 Oxygen Delivery Method Room Air Weight: 194 lb 7.163 oz Body Mass Index (BMI) 28.8 Intake & Output: Intake and Output for Last 24 Hours 04/13/23 04/14/23 04/15/23 23:59 23:59 23:59 Intake Total 1162.5 / 1262.5 1861.25 / 2061.25 350 / 350 Output Total 1550 / 1925 775 / 775 Balance 1162.5 / 862.5 311.25 / 136.25 -425 / -425 Lab / Micro Data Result Diagrams: 04/15/23 06:20 04/15/23 06:20 Labs: Laboratory Results - last 24 hr 04/14/23 11:46: POC Glucose 215 H 04/14/23 16:42: POC Glucose 305 H 04/14/23 20:19: POC Glucose 274 H 04/15/23 06:20: WBC 6.0, RBC 4.10 L, Hgb 13.3, Hct 41.8, MCV 102.0 H, MCH 32.4 H , MCHC 31.8 L, RDW Std Deviation 51.8 H, RDW Coeff of Yonathan 13.9, Plt Count 113 L, MPV 11.0, Immature Gran % (Auto) 0.800, Neut % (Auto) 76.5 H, Lymph % (Auto) 8.5 L, [place] % (Auto) 8.5, Eos % (Auto) 5.0, Baso % (Auto) 0.7, Absolute Neuts (auto) 4.6, Absolute Lymphs (auto) 0.51 L, Nucleated RBC % 0, Platelet Estimate ADEQUATE, Macrocytosis 1+ 04/15/23 06:20: Sodium 140, Potassium 4.1, Chloride 109 H, Carbon Dioxide 27.0, Anion Gap 4 L, BUN 22 H, Creatinine 1.16, Estim Creat Clear Calc 59.26, Est GFR (MDRD) Af Amer 80, Est GFR (MDRD) Non-Af 66, BUN/Creatinine Ratio 19.0, Glucose 190 H, Calcium 9.4 Physical Exam Const alert, oriented x3 and no apparent distress Constitutional Narrative: Very frail and weak HEENT normocephalic, head/scalp atraumatic and moist oral mucous membranes Eyes PERRL and EOMs intact bilaterally Neck supple and no JVD Lymph Lymphatic: no lymphadenopathy noted and no lymphedema noted Resp normal respiratory effort, normal air movement and clear to auscultation bilaterally Cardio regular rate, regular rhythm, S1 normal heart sound, S2 normal heart sound and no murmurs GI normal to inspection, nondistended, normoactive bowel sounds, soft to palpation, non-tender and non-distended Extremity normal capillary refill, no clubbing, cyanosis or edema and no calf tenderness Skin General Skin Exam: no breakdown and turgor normal Neuro CN's II-XII intact bilaterally, no focal motor deficits, no sensory deficits noted and deep tendon reflexes 2+ bilaterally Motor Exam: general weakness Psych thought process normal, cooperative and affect normal Appearance: appropriate Assessment & Plan Assessment/Plan (1) Generalized weakness: (2) Adult failure to thrive: (3) VALENCIA (acute kidney injury): PLAN: Plan #VALENCIA on CKD IIIB * resolved. Cr is down to baseline * #Debility with failure to thrive * Patient very weak and unable to ambulate. * PT OT on board. Fall precautions. Will need placement. * #History of nonischemic cardiomyopathy: Has known EF of 20 to 25% and status postplacement of a biventricular ICD. On spironolactone and Bumex #Paroxysmal A-fib: On carvedilol and Eliquis #Recurrent CVA: Has residual mild left-sided weakness. PT OT on board. #Hypertension: On spironolactone #Type 2 diabetes mellitus: On Lantus. Insulin sliding scale. Accu-Cheks ACHS. #GERD: PPI #History of Parkinson's disease: On levodopa carbidopa #Seizure disorder: On topiramate #History of prostate cancer: S/p radiation therapy. Currently on bicalutamide. #Obstructive sleep apnea: On CPAP nightly. DVT prophylaxis; on eliquis Disposition: awaiting placement. *
[2023-04-15 11:24] LABS: Bedside Glucose 156 mg/dL (74-106)
--- NOTE | 2023-04-15 11:39 | CASEMGMT ---
Discharge Planning Updates sent to [facility]. Requested phone and fax number for Tuesday discharge. Kayleigh Valencia, Discharge Planning Asst.
[2023-04-15 12:00] LABS: Bedside Glucose 123 mg/dL (74-106)
--- NOTE | 2023-04-15 14:09 | CM.UR ---
Social work Green sheet on chart in anticipation of weekend discharge to [facility]. SARITA Lozano
[2023-04-15 15:12] VITALS: BP 123/75; PULSE 69; RESP 18; TEMP 36.6; O2SAT 100
[2023-04-15 17:18] LABS: Bedside Glucose 330 mg/dL (74-106)
[2023-04-15 20:05] VITALS: BP 99/52; PULSE 70; RESP 18; TEMP 37; O2SAT 98
[2023-04-15] MEDS: Insulin Glargine-YFGN 100 UNIT/ML Pen 10 UNIT SC (22:19)
[2023-04-15 22:41] LABS: Bedside Glucose 332 mg/dL (74-106)
[2023-04-16 02:11] VITALS: BMI 27.9
[2023-04-16 06:00] VITALS: BP 110/59; PULSE 70; RESP 16; TEMP 36.6; O2SAT 98
[2023-04-16 06:04] LABS: Absolute Lymphocyte Count 0.36 X10^3/uL (0.83-4.51); Absolute Neutrophil Count 3.7 X10^3/uL (2.0-7.7); Basophil# 0.03 X10^3/uL; Basophil% 0.6 % (0-1); Eosinophil# 0.21 X10^3/uL; Eosinophils% 4.5 % (0-5); Hematocrit 32.9 % (40-54); Lymphocyte # 0.36 X10^3/ul (0.83-4.51); Lymphocyte % 7.7 % (19-41); Mean Corp Hgb Conc 33.4 g/dL (32-36); Mean Corpuscular Hgb 33.2 pg (27.0-32.0); Mean Corpuscular Volume 99.4 fL (80-94); Mean Platelet Vol. 11.5 fl (6.2-12.0); Monocyte# 0.36 X10^3/uL; Monocyte% 7.7 % (0-10); NRBC Flagged by Analyzer 0 % (0-5); Neutrophil # 3.69 X10^3/uL (2.7-7.7); Neutrophil % 78.9 % (47-70); POSITIVE DIFFERENTIAL YES; Platelet Count 112 K/mm3 (150-450); RBC Distribution Width CV 13.9 % (11.6-14.6); RBC Distribution Width SD 50.6 fl (35.1-43.9); Red Blood Count 3.31 M/mm3 (4.6-6.2); White Blood Count 4.7 K/mm3 (4.4-11.0)
[2023-04-16] MEDS: Insulin Lispro 100 UNIT/ML INSULN.PEN SC ×2 (06:04→12:24)
[2023-04-16] MEDS: Baclofen 10 MG Tablet PO ×2 (06:06→13:55)
[2023-04-16 06:28] LABS: Bedside Glucose 422 mg/dL (74-106)
[2023-04-16 06:37] LABS: Differential Indicated SCAN CRITERIA MET
[2023-04-16 06:45] LABS: Anion Gap 4 (5-15); BUN 26 mg/dL (7-18); BUN/Creat Ratio 18.2 RATIO (10-20); Calcium,Total 8.6 mg/dL (8.5-10.1); Chloride 109 mmol/L (98-107); Creatinine, Serum 1.43 mg/dL (0.70-1.30); EST Glomerular Filtration Rate 52 mL/min (>60); Est Glom Filt Rate - Afr Amer 63 mL/min (>60); Estimated Creatinine Clearance 48.07 ml/min; Glucose 462 mg/dL (74-106); Potassium 4.1 mmol/L (3.5-5.1); Sodium Level 139 mmol/L (136-145)
[2023-04-16 07:10] LABS: Differential Comment SCANNED
[2023-04-16 08:06] VITALS: O2SAT 95
[2023-04-16] MEDS: Multivitamins,Therapeutic Tablet 1 TABLET PO (08:42)
[2023-04-16 08:45] VITALS: BP 107/61; PULSE 70; RESP 18; TEMP 36.7; O2SAT 98
[2023-04-16 09:02] LABS: Bedside Glucose 303 mg/dL (74-106)
[2023-04-16 10:45] VITALS: BP 112/62; PULSE 70; RESP 18; O2SAT 99
[2023-04-16] MEDS: BICALUTAMIDE 50 MG TABLET PO (10:48)
[2023-04-16] MEDS: Psyllium 1 PACKET PO (10:49)
[2023-04-16] MEDS: Cyanocobalamin 500 MCG Tablet 1000 MCG PO (10:49)
[2023-04-16] MEDS: Carvedilol 3.125 MG TABLET PO (10:49)
[2023-04-16] MEDS: APIXABAN 5 MG TABLET PO (10:49)
[2023-04-16] MEDS: Pantoprazole Sodium 20 MG Tablet PO (10:50)
--- NOTE | 2023-04-16 11:14 | TREXTCAR_ITS ---
Diet Diet Order/Speech Therapy: 04/13/23 20:35 Diet: Consistent Carb - Calorie Controlled Food consistency:: Regular Liquid Consistency:: Regular/Thin Dietary Modifications:: Cardiac / Heart Healthy How many daily calories?: 2000 calorie Routine Orders/Code Status Enema Type: Fleetz Enema Frequency: Daily PRN Suppository Type: Dulcolax 10mg Suppository Frequency: Daily PRN O2 Frequency: PRN Keep PO Greater than or Equal to (%): 90 Therapies Weight Bearing: Weight bearing as tolerated Physical Therapy: Eval and Treat Occupational Therapy: Eval and Treat Problem/Diagnosis (1) Generalized weakness: Status: Acute Code(s): R53.1 - Weakness (2) Adult failure to thrive: Status: Acute Code(s): R62.7 - Adult failure to thrive (3) VALENCIA (acute kidney injury): Status: Acute Code(s): N17.9 - Acute kidney failure, unspecified Plan #VALENCIA on CKD IIIB * resolved. Cr is down to baseline * #Debility with failure to thrive * Patient very weak and unable to ambulate. * PT OT on board. Fall precautions. Will need placement. * #History of nonischemic cardiomyopathy: Has known EF of 20 to 25% and status postplacement of a biventricular ICD. On spironolactone and Bumex #Paroxysmal A-fib: On carvedilol and Eliquis #Recurrent CVA: Has residual mild left-sided weakness. PT OT on board. #Hypertension: On spironolactone #Type 2 diabetes mellitus: On Lantus. Insulin sliding scale. Accu-Cheks ACHS. #GERD: PPI #History of Parkinson's disease: On levodopa carbidopa #Seizure disorder: On topiramate #History of prostate cancer: S/p radiation therapy. Currently on bicalutamide. #Obstructive sleep apnea: On CPAP nightly. DVT prophylaxis; on eliquis Disposition: awaiting placement. * Allergies/Procedures Done in Hospital Allergies acetaminophen Adverse Reaction (Verified 01/06/23 13:44) Other oxycodone Adverse Reaction (Verified 01/06/23 13:44) hallucinations Procedures: None Type of Care/Length of Stay Estimated LOS: Convalescent Care Less Than 30 days Type of Care Needed: Skilled Rehab Potential: Fair Prognosis: Fair Additional Orders/Day of Discharge Day of Discharge: 04/16/23 Dietary and Speech Recommendations Dietitian Recommendations/Changes: Will adjust diet to 2000 calorie/consistent carbohydrate; cardiac. ONS as needed if PO fails at meals; will defer for now. Discharge Plan Admission Admit Date/Time: 04/13/23 17:42 Primary Reason for Your Visit: debility and weakness Attending Provider: Fior Turner Primary Care Provider: Pratibha Canales Consulting Providers: Norris Orellana ; Maximo Addison Instructions Patient Instructions: ED Weakness (Uncertain Cause) Discharge Orders/Prescriptions Prescriptions: Continued bicalutamide [Casodex] 50 mg tablet 50 mg PO DAILY omeprazole 20 mg capsule,delayed release(DR/EC) 20 mg PO BID lisinopril 40 mg tablet 40 mg PO DAILY baclofen 20 mg tablet 20 mg PO TID Qty: 90 5RF insulin glargine 100 UNIT/ML insulin pen 27 unit SQ QHS multivitamin Tablet 1 tab PO DAILY bumetanide 1 mg tablet 1 tab PO TID Hold Instructions: Resume on 04/29/22. Label Comments: TAKE 3 TABLETS BY MOUTH ONCE DAILY cyanocobalamin (vitamin B-12) 1,000 mcg Tablet 1,000 mcg PO DAILY carvedilol 3.125 mg tablet 3.125 mg PO BID Eliquis 5 mg tablet 5 mg PO BID Rx Instructions: TAKE ONE (1) TABLET BY MOUTH TWICE DAILY Referrals / Follow Up: Pratibha Canales MD [Primary Care Provider] - Within 1 Week Disposition Disposition (needs filled in before D/C Order can be placed): [facility]
--- NOTE | 2023-04-16 11:15 | DS.PCM_ITS ---
Providers Date of Admission: 04/13/23 Date of Discharge: 04/16/23 Primary Care Physician: Dr. Pratibha Canales MD Reason For Visit: VALENCIA Diagnosis Discharge Diagnosis (1) Generalized weakness: Status: Acute Code(s): R53.1 - Weakness (2) Adult failure to thrive: Status: Acute Code(s): R62.7 - Adult failure to thrive (3) VALENCIA (acute kidney injury): Status: Acute Code(s): N17.9 - Acute kidney failure, unspecified Plan #VALENCIA on CKD IIIB * resolved. Cr is down to baseline * #Debility with failure to thrive * Patient very weak and unable to ambulate. * PT OT on board. Fall precautions. Will need placement. * #History of nonischemic cardiomyopathy: Has known EF of 20 to 25% and status postplacement of a biventricular ICD. On spironolactone and Bumex #Paroxysmal A-fib: On carvedilol and Eliquis #Recurrent CVA: Has residual mild left-sided weakness. PT OT on board. #Hypertension: On spironolactone #Type 2 diabetes mellitus: On Lantus. Insulin sliding scale. Accu-Cheks ACHS. #GERD: PPI #History of Parkinson's disease: On levodopa carbidopa #Seizure disorder: On topiramate #History of prostate cancer: S/p radiation therapy. Currently on bicalutamide. #Obstructive sleep apnea: On CPAP nightly. DVT prophylaxis; on eliquis Disposition: awaiting placement. * Medications at Discharge Home Medications insulin glargine 100 unit/mL (3 mL) subcutaneous pen 27 unit SQ QHS diabetes 10/30/18 bicalutamide 50 mg tablet (Casodex) 50 mg PO DAILY prostate 12/10/21 multivitamin 1 tab PO DAILY supplement 02/19/22 bumetanide 1 mg tablet 1 tab PO TID water pill 04/25/22 lisinopril 40 mg tablet 40 mg PO DAILY 09/09/22 omeprazole 20 mg capsule,delayed release 20 mg PO BID 09/09/22 baclofen 20 mg tablet 20 mg PO TID #90 tabs 12/23/22 cyanocobalamin (vitamin B-12) 1,000 mcg tablet 1,000 mcg PO DAILY 04/11/23 apixaban 5 mg tablet (Eliquis) 5 mg PO BID 04/13/23 carvedilol 3.125 mg tablet 3.125 mg PO BID BP 04/13/23 Hospital Course Operations None Procedures None Summary of Care Provided Minutes Spent on Discharge: 47 Hospital Course: Patient is a 72-year-old male with a past medical history as outlined. He was admitted to the ED on 04/13/2023 for weakness and failure to thrive. He had just been on admission from 04/10/2023 to 04/12/2023 for the same reason and had been recommended to go to a skilled facility but he had refused. Despite counseling that he was very weak and would likely come back to the hospital very soon, patient was insistent that he wanted to go home as he had a lady friend who would come to take care of him. However on getting home patient felt very weak and debilitated and said his blood pressure was low and he had little energy. He therefore called the EMS and he was brought into the ED. He was admitted and managed for debility with weakness and failure to thrive. Labs done showed evidence of VALENCIA he was hydrated with fluids. Creatinine subsequently trended down to his baseline. PT OT reviewed patient and deemed him as needing skilled therapy and he was agreeable at this time. He was discharged to a skilled rehab facility on 04/16/2023. He is to follow-up with his primary care doctor within 1 to 2 weeks Patient seen and examined prior to discharge. He had no complaints and had an uneventful night. Review of systems otherwise negative. Labs and vitals reviewed. Home medication reviewed and reconciled. Physical Exam Const alert, oriented x3 and no apparent distress Constitutional Narrative: Very frail and weak General Appearance: cooperative and comfortable Orientation / Consciousness: awake HEENT normocephalic, head/scalp atraumatic, hearing grossly normal bilaterally and moist oral mucous membranes Eyes PERRL and EOMs intact bilaterally Neck no lymphadenopathy, supple and no JVD Lymph Lymphatic: no lymphadenopathy noted and no lymphedema noted Resp normal respiratory effort, normal air movement and clear to auscultation bilaterally Cardio regular rate, regular rhythm, S1 normal heart sound, S2 normal heart sound and no murmurs GI normal to inspection, nondistended, normoactive bowel sounds, soft to palpation, non-tender and non-distended Extremity normal to inspection, full ROM, normal capillary refill, no clubbing, cyanosis or edema and no calf tenderness Skin no rashes or lesions noted General Skin Exam: no breakdown and turgor normal Neuro oriented x3, CN's II-XII intact bilaterally, moves all extremities, no focal motor deficits, no sensory deficits noted and deep tendon reflexes 2+ bilaterally Sensorium / Orientation: awake Motor Exam: general weakness Psych thought process normal, cooperative and affect normal Appearance: appropriate Weight / BMI Weight Weight: 188 lb 7.924 oz Body Mass Index (BMI) 27.9 ABG / Lab / Microbiology Data Result Diagrams: 04/16/23 05:02 04/16/23 05:02 Laboratory: Laboratory Results - last 24 hr 04/15/23 06:35: POC Glucose 156 H 04/15/23 11:40: POC Glucose 123 H 04/15/23 16:57: POC Glucose 330 H 04/15/23 22:16: POC Glucose 332 H 04/16/23 05:02: WBC 4.7, RBC 3.31 L, Hgb 11.0 L, Hct 32.9 L, MCV 99.4 H, MCH 33.2 H, MCHC 33.4 D, RDW Std Deviation 50.6 H, RDW Coeff of Yonathan 13.9, Plt Count 112 L, MPV 11.5, Immature Gran % (Auto) 0.600, Neut % (Auto) 78.9 H, Lymph % (Auto) 7.7 L, [place] % (Auto) 7.7, Eos % (Auto) 4.5, Baso % (Auto) 0.6, Absolute Neuts (auto) 3.7, Absolute Lymphs (auto) 0.36 L, Nucleated RBC % 0, Differential Comment SCANNED 04/16/23 05:02: Sodium 139, Potassium 4.1, Chloride 109 H, Carbon Dioxide 26.0, Anion Gap 4 L, BUN 26 H, Creatinine 1.43 H, Estim Creat Clear Calc 48.07, Est GFR (MDRD) Af Amer 63, Est GFR (MDRD) Non-Af 52 L, BUN/Creatinine Ratio 18.2, Glucose 462 H*, Calcium 8.6 04/16/23 06:03: POC Glucose 422 H 04/16/23 08:36: POC Glucose 303 H D/C Instructions Discharge Diet: Low fat / Low cholesterol Discharge Activity: Return to Normal Activity Weight Bearing Status: Weight bearing as tolerated Call your doctor if you observe: Fever of 101 or Higher, Shortness of breath, Dizziness, Swelling in the ankles and Chest pain Meaningful Use Info Meaningful Use Diagnoses (Choose all that apply): None applicable Discharge Plan Admission Admit Date/Time: 04/13/23 17:42 Primary Reason for Your Visit: debility and weakness Attending Provider: Fior Turner Primary Care Provider: Pratibha Canales Consulting Providers: Norris Orellana ; Maximo Addison Instructions Patient Instructions: ED Weakness (Uncertain Cause) Discharge Orders/Prescriptions Prescriptions: Continued bicalutamide [Casodex] 50 mg tablet 50 mg PO DAILY omeprazole 20 mg capsule,delayed release(DR/EC) 20 mg PO BID lisinopril 40 mg tablet 40 mg PO DAILY baclofen 20 mg tablet 20 mg PO TID Qty: 90 5RF insulin glargine 100 UNIT/ML insulin pen 27 unit SQ QHS multivitamin Tablet 1 tab PO DAILY bumetanide 1 mg tablet 1 tab PO TID Hold Instructions: Resume on 04/29/22. Label Comments: TAKE 3 TABLETS BY MOUTH ONCE DAILY cyanocobalamin (vitamin B-12) 1,000 mcg Tablet 1,000 mcg PO DAILY carvedilol 3.125 mg tablet 3.125 mg PO BID Eliquis 5 mg tablet 5 mg PO BID Rx Instructions: TAKE ONE (1) TABLET BY MOUTH TWICE DAILY Referrals / Follow Up: Pratibha Canales MD [Primary Care Provider] - Within 1 Week Disposition Disposition (needs filled in before D/C Order can be placed): [facility] Charges/Coding Visit Charges Inpatient E&M: 06471 Disch Hosp >30min
[2023-04-16 12:29] LABS: Bedside Glucose 302 mg/dL (74-106)
--- NOTE | 2023-04-16 12:37 | CASEMGMT ---
Social Work SW completed Hospital Exemption, one copy placed in packet and one placed in the chart. SARITA Lozano
[2023-04-16 13:46] VITALS: BP 122/73; PULSE 70; RESP 18; TEMP 36.6; O2SAT 100
== END 2023-04-16 14:16 | disposition skilled nursing facility (03) | DRG 683 ==
LOC: ED 17:39 → MS3 18:28
PROVIDERS: Admitting Provider Internal Medicine; Emergency Provider Emergency Medicine; PCP Internal Medicine; Visit Provider Student in an Organized Health Care Education/Training Program
DX: N17.9 Acute kidney failure, unspecified (principal); I42.8 Other cardiomyopathies; I13.0 Hypertensive heart and chronic kidney disease with heart failure and stage 1 through stage 4 chronic kidney disease, or unspecified chronic kidney disease; I50.22 Chronic systolic (congestive) heart failure; I69.354 Hemiplegia and hemiparesis following cerebral infarction affecting left non-dominant side; E11.22 Type 2 diabetes mellitus with diabetic chronic kidney disease; G40.909 Epilepsy, unspecified, not intractable, without status epilepticus; I48.0 Paroxysmal atrial fibrillation; R62.7 Adult failure to thrive; Z79.4 Long term (current) use of insulin; G20 Parkinson's disease; N18.32 Chronic kidney disease, stage 3b; G47.33 Obstructive sleep apnea (adult) (pediatric); E78.5 Hyperlipidemia, unspecified; K21.9 Gastro-esophageal reflux disease without esophagitis; I25.10 Atherosclerotic heart disease of native coronary artery without angina pectoris; Z68.27 Body mass index [BMI] 27.0-27.9, adult; R53.1 Weakness; R53.81 Other malaise; Z20.822 Contact with and (suspected) exposure to COVID-19; Z79.01 Long term (current) use of anticoagulants; Z79.899 Other long term (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; Z92.3 Personal history of irradiation; Z87.891 Personal history of nicotine dependence; Z85.46 Personal history of malignant neoplasm of prostate; Z95.810 Presence of automatic (implantable) cardiac defibrillator
CPT/HCPCS: 36415; 70450; 71045; 80048; 80053; 81001; 82962; 83690; 83735; 84100; 84443; 84484; 85025; 87811; 93005; 94668; 96360; 97110; 97112; 97116; 97162; 97166; 97530; 97535; 99221; 99285; J7030; J7120; P9612; A4216; G0378

== ENCOUNTER 2023-04-23 10:09 | Inpatient (IN) | payer MEDICARE, OTHER, SELFPAY ==
[2023-04-23] VITALS (8 sets, daily range): BP systolic 124–146; BP diastolic 75–85; PULSE 62–86; RESP 12–20; TEMP 36.1–37.2; O2SAT 96–100; BMI 25.4; BMI 28.3
--- NOTE | 2023-04-23 10:26 | EKG12_ITS ---
Test Reason : Blood Pressure : / mmHG Vent. Rate : 075 BPM Atrial Rate : 074 BPM P-R Int : 000 ms QRS Dur : 176 ms QT Int : 484 ms P-R-T Axes : 000 184 026 degrees QTc Int : 540 ms Ventricular-paced rhythm with occasional Premature ventricular complexes Biventricular pacemaker detected Abnormal ECG Confirmed by ARLENE BUSTILLO, BELEN ([id number]), material expeditor ISREAL HORTON ([id number]) on 04/25/2023 10:58:22 A M Referred By: CITLALY Confirmed By:ANDRAE JACOBS MD
--- NOTE | 2023-04-23 10:29 | EX.ED.DYSGE1 ---
HPI History of Present Illness Chief Complaint: Alt LOC Informant: patient Onset/Context/Timing Context: Gradual Onset Timing: Continuous Quality: Weakness Location: Generalized Worsened by: Nothing Relieved by: Nothing Associated Symptoms Associated Symptoms: Headache Narrative Narrative: Patient presents with generalized weakness that became worse today. Patient states he feels weak all over. Patient lives in an extended care facility. Patient was recently admitted there for deconditioning. Staff there reported that the patient had a low pulse oximeter reading today. Patient denies any shortness of breath or cough. Patient denies any fevers or chills. Patient does admit to a headache. Patient denies any focal weakness. [facility] Medical History Acute and chronic respiratory failure with hypoxia Acute heart failure with reduced ejection fraction and diastolic dysfunction Adult failure to thrive Ambulates with cane Anticoagulant long-term use Ascites Asthma Atherosclerosis of coronary artery of [place] heart without angina pectoris Atrial fibrillation and flutter Back pain Benign brain tumor Cholelithiasis Chronic combined systolic and diastolic CHF (congestive heart failure) Chronic kidney disease (CKD) Cirrhosis of liver Cirrhosis of liver with ascites CPAP (continuous positive airway pressure) dependence Debility Diabetes Diabetes mellitus, type II Essential (primary) hypertension Former smoker History of atrial fibrillation History of CVA (cerebrovascular accident) History of ulceration Hyperlipidemia Injury of back Insulin dependent diabetes mellitus Longstanding persistent atrial fibrillation Non-rheumatic tricuspid valve insufficiency Nonischemic cardiomyopathy NSTEMI (non-ST elevated myocardial infarction) (10/09/19) ALBINO (obstructive sleep apnea) Parkinson's disease 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 Right inguinal hernia Right ventricular systolic dysfunction Secondary pulmonary arterial hypertension Seizure disorder Sleep apnea Stasis edema of both lower extremities Stroke/cerebrovascular accident Thyroid disease Weakness Wears glasses Home Medications insulin glargine 100 unit/mL (3 mL) subcutaneous pen 27 unit SQ QHS diabetes 10/30/18 [History Last Taken 04/12/23] bicalutamide 50 mg tablet (Casodex) 50 mg PO DAILY prostate 12/10/21 [History Last Taken 04/13/23] multivitamin 1 tab PO DAILY supplement 02/19/22 [History Last Taken 04/13/23] bumetanide 1 mg tablet 1 tab PO TID water pill 04/25/22 [History Last Taken 04/13/23] lisinopril 40 mg tablet 40 mg PO DAILY 09/09/22 [History Last Taken 04/12/23] omeprazole 20 mg capsule,delayed release 20 mg PO BID 09/09/22 [History Last Taken 04/13/23] baclofen 20 mg tablet 20 mg PO TID #90 tabs 12/23/22 [Rx Last Taken 04/13/23] apixaban 5 mg tablet (Eliquis) 5 mg PO BID 04/13/23 [History Last Taken 04/13/23] carvedilol 3.125 mg tablet 3.125 mg PO BID BP 04/13/23 [History Last Taken 04/12/23] dextrose 40 % oral gel (Glucose Gel) 15 g PO Q15M PRN Hypoglycemia 04/23/23 [History Last Taken Unknown] tramadol 50 mg tablet 50 mg PO Q12H PRN PRN Pain 04/23/23 [History Last Taken Unknown] Allergy/AdvReac Type Severity Reaction Status Date / Time acetaminophen AdvReac Other Verified 04/23/23 10:15 oxycodone AdvReac hallucinati Verified 04/23/23 10:15 ons Family History Daughter Heart disease valve replacement/chf Diabetes Mother Thyroid disorder Surgical History Biventricular ICD (implantable cardioverter-defibrillator) in place (10/12/19) H/O excision of tumor of brain meninges (2011) History of arthroplasty of right hip History of cardiac catheterization History of cardioversion (05/05/20) History of left heart catheterization (08/31/19) History of percutaneous coronary intervention (10/10/19) History of right and left heart catheterization History of right hip hemiarthroplasty History of tonsillectomy Social History household members: none Smoking Status: Former smoker how long ago did patient quit smokin years second hand exposure: No alcohol intake: never substance use type: does not use regla/yazidi: None seatbelt use: always ROS ROS ED Constitutional Constitutional ED: Denies chills or fever(s) Eyes Eyes: Denies blurry vision or change in vision ENT ENT ED: Denies rhinorrhea or sore throat Cardiovascular Cardiovascular: Denies chest pain or palpitations Respiratory/Chest Respiratory/Chest: Denies cough or dyspnea Gastrointestinal Gastrointestinal: Denies nausea or vomiting Genitourinary Genitourinary ED: Denies dysuria or hematuria Musculoskeletal Musculoskeletal: Denies back pain or neck pain Integumentary Denies abscess or rash Neurologic Neurologic: Reports headache(s) and weakness Allergic/Immunologic Allergic/Immunologic ED: Denies mouth swelling or urticaria EXAM Physical Exam Const Vital Signs: 04/23/23 10:09 04/23/23 10:16 04/23/23 11:47 Temperature 98.9 F Temperature Source Oral Pulse Rate 82 Respiratory Rate 18 Respiratory Effort Normal Non-Labored Blood Pressure 130/77 H Blood Pressure Mean 94 Pulse Ox 98 100 Oxygen Delivery Method Room Air Nasal Cannula Oxygen Flow Rate (L/min) 2 04/23/23 12:15 04/23/23 13:12 Temperature Temperature Source Pulse Rate 70 Respiratory Rate 12 Respiratory Effort Blood Pressure 135/85 H Blood Pressure Mean 101 Pulse Ox 100 100 Oxygen Delivery Method Nasal Cannula Nasal Cannula Oxygen Flow Rate (L/min) 2 2 Positive well nourished and well developed General Appearance ED: well developed and NAD Neck supple and no JVD Resp normal respiratory effort and clear to auscultation bilaterally Auscultation: diminished lung sounds Cardio regular rate and regular rhythm GI normal to inspection, nondistended, normoactive bowel sounds and non-tender Palpation: soft Neuro CN's II-XII intact bilaterally and no sensory deficits noted Sensorium / Orientation: alert Motor Exam: strength 5/5 throughout MDM MDM MDM Narrative Medical decision making narrative: Differential diagnosis includes anemia, electrolyte abnormality, hepatic encephalopathy, infection, cardiac ischemia, and cardiac dysrhythmia. EKG will be obtained to assess for cardiac dysrhythmia and cardiac ischemia. CBC will be obtained to assess for anemia and leukocytosis. Comprehensive metabolic profile will be obtained to assess for hepatic function, renal function, and electrolyte abnormality. Lipase will be obtained to assess for pancreatitis. PT with INR and PTT will be obtained to assess for coagulopathy. High-sensitivity troponin will be obtained to assess for cardiac ischemia. Urinalysis will be obtained to assess for urinary tract infection. COVID-19 rapid antigen will be obtained to assess for COVID infection. Influenza A and influenza B antigens will be obtained to assess for influenza infection. Chest x-ray will be obtained to assess for pneumonia. Lab Data Attestation: I reviewed the patient's lab results. Lab results narrative: CBC was reviewed and was within normal limits. PT with INR and PTT were reviewed. Pro time was 20.3 and INR is 1.7. PTT was normal at 34. Comprehensive metabolic profile showed a BUN of 57 and creatinine of 2.04. These were increased from previous result. Alkaline phosphatase was slightly elevated at 130. High-sensitivity troponin was reviewed and was slightly elevated at 126. Lipase was reviewed and was normal at 11. Serum ammonia level was and was normal at 13. Urinalysis was reviewed. There is no evidence of urinary tract infection or hematuria. Labs: Laboratory Results - last 24 hr 04/23/23 04/23/23 04/23/23 10:44 10:44 10:44 WBC 8.8 RBC 4.25 L Hgb 13.9 Hct 41.4 MCV 97.4 H MCH 32.7 H MCHC 33.6 RDW Std Deviation 49.1 H RDW Coeff of Yonathan 13.7 Plt Count 183 MPV 11.3 Immature Gran % (Auto) 0.500 Neut % (Auto) 84.7 H Lymph % (Auto) 7.2 L [place] % (Auto) 6.6 Eos % (Auto) 0.7 Baso % (Auto) 0.3 Absolute Neuts (auto) 7.4 Absolute Lymphs (auto) 0.63 L Nucleated RBC % 0 PT 20.3 H INR 1.7 APTT 34.0 Sodium 143 Potassium 4.1 Chloride 104 Carbon Dioxide 31.0 Anion Gap 8 BUN 57 H Creatinine 2.04 H Estim Creat Clear Calc 33.69 Est GFR (MDRD) Af Amer 42 L Est GFR (MDRD) Non-Af 34 L BUN/Creatinine Ratio 27.9 H Glucose 146 H Calcium 9.9 Total Bilirubin 0.90 AST 23 ALT 22 Alkaline Phosphatase 130 H Ammonia Troponin I High Sens 126 H* Total Protein 8.3 H Albumin 3.7 Globulin 4.6 H Albumin/Globulin Ratio 0.8 L Lipase 11 L Urine Color Urine Clarity Urine pH Ur Specific [place] Urine Protein Urine Glucose (UA) Urine Ketones Urine Occult Blood Urine Nitrite Urine Bilirubin Urine Urobilinogen Ur Leukocyte Esterase Urine RBC Urine WBC Ur Squamous Epith Cells Urine Bacteria Urine Mucus 04/23/23 04/23/2323 10:44 11:06 13:00 WBC RBC Hgb Hct MCV MCH MCHC RDW Std Deviation RDW Coeff of Yonathan Plt Count MPV Immature Gran % (Auto) Neut % (Auto) Lymph % (Auto) [place] % (Auto) Eos % (Auto) Baso % (Auto) Absolute Neuts (auto) Absolute Lymphs (auto) Nucleated RBC % PT INR APTT Sodium Potassium Chloride Carbon Dioxide Anion Gap BUN Creatinine Estim Creat Clear Calc Est GFR (MDRD) Af Amer Est GFR (MDRD) Non-Af BUN/Creatinine Ratio Glucose Calcium Total Bilirubin AST ALT Alkaline Phosphatase Ammonia 13.0 Troponin I High Sens 124 H* Total Protein Albumin Globulin Albumin/Globulin Ratio Lipase Urine Color Yellow Urine Clarity Clear Urine pH 5.0 Ur Specific [place] 1.020 Urine Protein 15 H Urine Glucose (UA) Normal Urine Ketones Negative Urine Occult Blood Negative Urine Nitrite Negative Urine Bilirubin Negative Urine Urobilinogen Normal Ur Leukocyte Esterase Negative Urine RBC 0 SEEN Urine WBC 0 SEEN Ur Squamous Epith Cells 0-5 SEEN Urine Bacteria 0 SEEN Urine Mucus 0 SEEN Radiography Chest X-Ray - ED: 1 View, Read by ED Physician, Read by Radiologist and No Acute Disease CTA PE Study: No Evidence of PE and No Evidence of Dissection Diagnostic Testing: Clinical Impression(s) from Imaging Studies Chest X-Ray 04/23/23 10:31 IMPRESSION: No acute pulmonary abnormality. Stable cardiomegaly. Electronically Signed: Kenny Culp MD at 11:10 EDT , Chest CTA 04/23/23 13:37 IMPRESSION: 1. No evidence of acute pulmonary embolism. 2. Cardiomegaly. 3. Cholelithiasis. 4. Bilateral adrenal adenomata. 5. 2.2 cm right thyroid nodule. Electronically Signed: Kenny Culp MD at 14:55 EDT , Portable 1 view chest x-ray was obtained. On my independent interpretation, lung peters are clear. There is normal cardiac silhouette. Bony thorax is normal. There is no acute process noted. Radiologist also interpreted the x-ray and agrees. CTA of the chest was obtained. There is no evidence of pulmonary embolism or aortic dissection. There is cardiomegaly. This was interpreted by the radiologist and was also independently reviewed by myself. Treatment and Re-Evaluation :: Patient was given IV fluids and aspirin. Patient was advised of his findings. Due to the increase in BUN and creatinine, I feel the patient would benefit from inpatient treatment for acute kidney injury. Due to the elevated high-sensitivity troponin, a 2-hour repeat high-sensitivity troponin will be obtained. Case was discussed with the hospitalist. She recommended getting a CTA of the chest. This was ordered. Patient will be admitted to the hospital. Patient understood and was agreeable with the plan. All questions were answered. Discharge Plan Dx/Rx/DC Orders Clinical Impression: VALENCIA (acute kidney injury), Generalized weakness, Elevated troponin Disposition Disposition: Acute Care Hospital [facility] Discharge Date/Time: 04/23/23 14:29
--- NOTE | 2023-04-23 10:31 | RAD_ITS ---
EXAM: XR CHEST, 1 VIEW CLINICAL INDICATION: Dyspnea TECHNIQUE: Frontal view of the chest. COMPARISON: XR Chest dated 04/13/2023 FINDINGS: LUNGS AND PLEURAL SPACES: Normal. No consolidation or edema. No pneumothorax. No effusion. HEART: Stable cardiomegaly. MEDIASTINUM: No mediastinal or hilar mass. BONES/JOINTS: No acute abnormality. TUBES, LINES AND DEVICES: Cardiac pacemaker wires remain in place. RAD/Chest 1 View (Portable) IMPRESSION: No acute pulmonary abnormality. Stable cardiomegaly. Electronically Signed: Kenny Culp MD at 11:10 EDT ,
[2023-04-23 11:06] LABS: Absolute Lymphocyte Count 0.63 X10^3/uL (0.83-4.51); Absolute Neutrophil Count 7.4 X10^3/uL (2.0-7.7); Basophil# 0.03 X10^3/uL; Basophil% 0.3 % (0-1); Eosinophil# 0.06 X10^3/uL; Eosinophils% 0.7 % (0-5); Hematocrit 41.4 % (40-54); Hemoglobin 13.9 g/dL (13.0-16.5); Lymphocyte # 0.63 X10^3/ul (0.83-4.51); Lymphocyte % 7.2 % (19-41); Mean Corp Hgb Conc 33.6 g/dL (32-36); Mean Corpuscular Hgb 32.7 pg (27.0-32.0); Mean Corpuscular Volume 97.4 fL (80-94); Mean Platelet Vol. 11.3 fl (6.2-12.0); Monocyte# 0.58 X10^3/uL; Monocyte% 6.6 % (0-10); NRBC Flagged by Analyzer 0 % (0-5); Neutrophil # 7.43 X10^3/uL (2.7-7.7); Neutrophil % 84.7 % (47-70); Platelet Count 183 K/mm3 (150-450); RBC Distribution Width CV 13.7 % (11.6-14.6); RBC Distribution Width SD 49.1 fl (35.1-43.9); Red Blood Count 4.25 M/mm3 (4.6-6.2); White Blood Count 8.8 K/mm3 (4.4-11.0)
[2023-04-23 11:17] LABS: Bacteria 0 SEEN /hpf (None Seen); Mucous, Urine 0 SEEN /hpf (<or=2+); Red Blood Cells-Urine 0 SEEN /hpf (0-5); White Blood Cells 0 SEEN /hpf (0-5)
[2023-04-23 11:22] LABS: ALB/GLOB Ratio 0.8 RATIO (0.9-2.4); AST(SGOT) 23 U/L (15-37); Alanine Aminotransfer ALT/SGPT 22 U/L (16-61); Albumin, Serum 3.7 g/dL (3.2-5.0); Alkaline Phosphatase 130 U/L (45-117); Anion Gap 8 (5-15); BUN 57 mg/dL (7-18); BUN/Creat Ratio 27.9 RATIO (10-20); Calcium,Total 9.9 mg/dL (8.5-10.1); Chloride 104 mmol/L (98-107); Creatinine, Serum 2.04 mg/dL (0.70-1.30); EST Glomerular Filtration Rate 34 mL/min (>60); Est Glom Filt Rate - Afr Amer 42 mL/min (>60); Estimated Creatinine Clearance 33.69 ml/min; Globulin 4.6 g/dL (2.2-4.2); Glucose 146 mg/dL (74-106); Lipase 11 U/L (13-75); Potassium 4.1 mmol/L (3.5-5.1); Protein, Total 8.3 g/dL (6.4-8.2); Sodium Level 143 mmol/L (136-145); Troponin-I HS 126 pg/mL (3.0-78.0)
[2023-04-23 11:30] LABS: International Normalized Ratio 1.7; Prothrombin Time (Protime)PT. 20.3 SECONDS (11.7-14.9)
[2023-04-23 11:32] LABS: Color, Urine Yellow (Yellow); Glucose, Dipstick Normal (Normal); Ketone-Dipstick Negative (Negative); Leukocyte Esterase-Dipstick Negative /ul (Negative); Nitrite-Dipstick Negative (Negative); Occult Blood-Urine Negative /ul (Negative); Protein-Dipstick 15 mg/dl (Negative); Urine Bilirubin Dipstick Negative (Negative); Urine Clarity Clear (Clear); Urine Urobilinogen Normal (Normal)
[2023-04-23 11:40] LABS: Squamous Epithelial Cells - UA 0-5 SEEN /hpf (0-5)
[2023-04-23] MEDS: Aspirin 81 MG TAB.CHEW 324 MG PO (11:57)
--- NOTE | 2023-04-23 13:14 | ED.RN ---
THIS RN ACCEPTED PHONE CALL FROM [facility]STIAN[facility] AT 1315 ON BEHALF OF PT. PT A&O X3. PT GAVE THIS RN VERBAL PERMISSION TO UPDATE [facility] ON PT PLAN OF CARE.
--- NOTE | 2023-04-23 13:34 | HP.PCM.HOS_ITS ---
HPI - General General Date of Admission: 04/23/23 Date of Service: 04/23/23 HPI Narrative STEPH BAUMANN, is a 72 M with a PMH as outlined who presents via the ED on 04/23/2023 with a complaint of generalised weakness from his SNF. This is his third admission over the last few weeks for generalised weakness. He was recently discharged to the group home facility on 04/16/2023 from where he presents today on account of weakness. Staff and detention also noted that he was hypoxic by pulse oximeter. He denied any shortness of breath or cough or chest pain. He denied any fever or chills. He only complained of left hip pain. Review of systems otherwise negative. Vitals in the ED were blood pressure 135/85 with respiratory rate of 20 and he was saturating at 100% on 2 L of oxygen. Temperature was 98.4 Fahrenheit. CBC showed WBC of 8.8 with hemoglobin of 13.9 and platelets of 183. INR was 1.7. Chemistry was significant for creatinine of 2.04 with a baseline of around 1.16. CTA of the chest done was negative for any evidence of PE. He complained of left hip pain and x-ray of the left hip done was negative for any evidence of fracture. He has been admitted to be managed for VALENCIA and debility and deconditioning. [facility] Medical History Acute and chronic respiratory failure with hypoxia Acute heart failure with reduced ejection fraction and diastolic dysfunction Adult failure to thrive Ambulates with cane Anticoagulant long-term use Ascites Asthma Atherosclerosis of coronary artery of [place] heart without angina pectoris Atrial fibrillation and flutter Back pain Benign brain tumor Cholelithiasis Chronic combined systolic and diastolic CHF (congestive heart failure) Chronic kidney disease (CKD) Cirrhosis of liver Cirrhosis of liver with ascites CPAP (continuous positive airway pressure) dependence Debility Diabetes Diabetes mellitus, type II Essential (primary) hypertension Former smoker History of atrial fibrillation History of CVA (cerebrovascular accident) History of ulceration Hyperlipidemia Injury of back Insulin dependent diabetes mellitus Longstanding persistent atrial fibrillation Non-rheumatic tricuspid valve insufficiency Nonischemic cardiomyopathy NSTEMI (non-ST elevated myocardial infarction) (10/09/19) ALBINO (obstructive sleep apnea) Parkinson's disease 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 Right inguinal hernia Right ventricular systolic dysfunction Secondary pulmonary arterial hypertension Seizure disorder Sleep apnea Stasis edema of both lower extremities Stroke/cerebrovascular accident Thyroid disease Weakness Wears glasses Home Medications insulin glargine 100 unit/mL (3 mL) subcutaneous pen 27 unit SQ QHS diabetes 10/30/18 [History Last Taken 04/12/23] bicalutamide 50 mg tablet (Casodex) 50 mg PO DAILY prostate 12/10/21 [History Last Taken 04/13/23] multivitamin 1 tab PO DAILY supplement 02/19/22 [History Last Taken 04/13/23] bumetanide 1 mg tablet 1 tab PO TID water pill 04/25/22 [History Last Taken 04/13/23] lisinopril 40 mg tablet 40 mg PO DAILY 09/09/22 [History Last Taken 04/12/23] omeprazole 20 mg capsule,delayed release 20 mg PO BID 09/09/22 [History Last Taken 04/13/23] baclofen 20 mg tablet 20 mg PO TID #90 tabs 12/23/22 [Rx Last Taken 04/13/23] apixaban 5 mg tablet (Eliquis) 5 mg PO BID 04/13/23 [History Last Taken 04/13/23] carvedilol 3.125 mg tablet 3.125 mg PO BID BP 04/13/23 [History Last Taken 04/12/23] dextrose 40 % oral gel (Glucose Gel) 15 g PO Q15M PRN Hypoglycemia 04/23/23 [History Last Taken Unknown] tramadol 50 mg tablet 50 mg PO Q12H PRN PRN Pain 04/23/23 [History Last Taken Unknown] Allergy/AdvReac Type Severity Reaction Status Date / Time acetaminophen AdvReac Other Verified 04/23/23 10:15 oxycodone AdvReac hallucinati Verified 04/23/23 10:15 ons Family History Daughter Heart disease valve replacement/chf Diabetes Mother Thyroid disorder Surgical History Biventricular ICD (implantable cardioverter-defibrillator) in place (10/12/19) H/O excision of tumor of brain meninges (2011) History of arthroplasty of right hip History of cardiac catheterization History of cardioversion (05/05/20) History of left heart catheterization (08/31/19) History of percutaneous coronary intervention (10/10/19) History of right and left heart catheterization History of right hip hemiarthroplasty History of tonsillectomy Social History household members: none Smoking Status: Former smoker how long ago did patient quit smokin years second hand exposure: No alcohol intake: never substance use type: does not use regla/zoroastrian: None seatbelt use: always ROS Constitutional Constitutional: Reports fatigue, malaise and weakness; Denies anorexia, chills or fever(s) Eyes Eyes: Denies change in vision ENT HEENT: Denies dysphagia or headache(s) Cardiovascular Cardiovascular: Denies chest pain, dyspnea on exertion, edema, lightheadedness, orthopnea or palpitations Respiratory/Chest Respiratory/Chest: Denies cough, dyspnea, shortness of breath at rest or shortness of breath with exertion Gastrointestinal Gastrointestinal: Denies abdominal pain, constipation, diarrhea, loose stools, melena, nausea or vomiting Genitourinary Genitourinary: Denies burning urination or hematuria Musculoskeletal Musculoskeletal: Reports joint pain; Denies arthralgias, back pain, joint stiffness, joint swelling or myalgias Neurologic Neurologic: Denies confusion, dizziness, focal weakness or headache(s) Psychiatric Psychiatric: Denies anxiety or depression Vital Signs Vital Signs Vital Signs: 04/23/23 10:09 04/23/23 10:16 04/23/23 11:47 Temperature 98.9 F Temperature Source Oral Pulse Rate 82 Respiratory Rate 18 Respiratory Effort Normal Non-Labored Blood Pressure 130/77 H Blood Pressure Mean 94 Pulse Ox 98 100 Oxygen Delivery Method Room Air Nasal Cannula Oxygen Flow Rate (L/min) 2 04/23/23 12:15 04/23/23 13:12 Temperature Temperature Source Pulse Rate 70 Respiratory Rate 12 Respiratory Effort Blood Pressure 135/85 H Blood Pressure Mean 101 Pulse Ox 100 100 Oxygen Delivery Method Nasal Cannula Nasal Cannula Oxygen Flow Rate (L/min) 2 2 Weight Weight: 171 lb 15.369 oz Body Mass Index (BMI) 25.4 Physical Exam Const alert, oriented x3 and no apparent distress Constitutional Narrative: lethargic General Appearance: cooperative HEENT hearing grossly normal bilaterally; Negative for head/scalp atraumatic HEENT Narrative: dry oral mucosal membranes Eyes PERRL, EOMs intact bilaterally and conjunctivae normal Neck no lymphadenopathy and supple Resp normal respiratory effort, no retractions and no use of accessory muscles Cardio regular rate, regular rhythm, S1 normal heart sound, S2 normal heart sound and no murmurs GI normal to inspection, nondistended, normoactive bowel sounds, soft to palpation, non-tender and non-distended Extremity normal to inspection, full ROM and no clubbing, cyanosis or edema Neuro oriented x3, CN's II-XII intact bilaterally, moves all extremities and no focal motor deficits Sensorium / Orientation: awake and alert Motor Exam: strength 5/5 throughout Psych affect normal Results Lab / Micro Data Result Diagrams: 04/23/23 10:44 04/23/23 10:44 Labs: Laboratory Results - last 24 hr 04/23/23 10:44: WBC 8.8, RBC 4.25 L, Hgb 13.9, Hct 41.4, MCV 97.4 H, MCH 32.7 H, MCHC 33.6, RDW Std Deviation 49.1 H, RDW Coeff of Yonathan 13.7, Plt Count 183, MPV 11.3, Immature Gran % (Auto) 0.500, Neut % (Auto) 84.7 H, Lymph % (Auto) 7.2 L, [place] % (Auto) 6.6, Eos % (Auto) 0.7, Baso % (Auto) 0.3, Absolute Neuts (auto) 7.4, Absolute Lymphs (auto) 0.63 L, Nucleated RBC % 0 04/23/23 10:44: PT 20.3 H, INR 1.7, APTT 34.0 04/23/23 10:44: Sodium 143, Potassium 4.1, Chloride 104, Carbon Dioxide 31.0, Anion Gap 8, BUN 57 H, Creatinine 2.04 H, Estim Creat Clear Calc 33.69, Est GFR (MDRD) Af Amer 42 L, Est GFR (MDRD) Non-Af 34 L, BUN/Creatinine Ratio 27.9 H, Glucose 146 H, Calcium 9.9, Total Bilirubin 0.90, AST 23, ALT 22, Alkaline Phosphatase 130 H, Troponin I High Sens 126 H*, Total Protein 8.3 H, Albumin 3.7, Globulin 4.6 H, Albumin/Globulin Ratio 0.8 L, Lipase 11 L 04/23/23 10:44: Ammonia 13.0 04/23/23 11:06: Urine Color Yellow, Urine Clarity Clear, Urine pH 5.0, Ur Specific [place] 1.020, Urine Protein 15 H, Urine Glucose (UA) Normal, Urine Ketones Negative, Urine Occult Blood Negative, Urine Nitrite Negative, Urine Bilirubin Negative, Urine Urobilinogen Normal, Ur Leukocyte Esterase Negative, Urine RBC 0 SEEN, Urine WBC 0 SEEN, Ur Squamous Epith Cells 0-5 SEEN, Urine Bacteria 0 SEEN, Urine Mucus 0 SEEN Micro: Microbiology 04/23/23 10:44 Nasal Secretion SARS-CoV-2 & FLU Antigen (Rapid) - Final Radiology Impression Chest X-Ray 04/23/23 10:31 IMPRESSION: No acute pulmonary abnormality. Stable cardiomegaly. Electronically Signed: Kenny Culp MD at 11:10 EDT Reading Location ID and State: [address] [place] [address] Tel , Service support , Assessment & Plan Assessment/Plan (1) Generalized weakness: (2) Adult failure to thrive: (3) VALENCIA (acute kidney injury): PLAN: Plan #VALENCIA * Cr is 2.04 * admit to PCU due ot hypoxia * baseline Cr is ~ 1.16 * likely pre renal due to decreased intake * hydrate with IVF * trend Cr * do further workup including FeUrea and FeNa and renal USG if Cr doesnt improve * #Debility and fialure to thrive * CT chest showed no evidence of PE * PT/OT consult. Fall precautions * #Elevated troponins * Initial troponin was 126 and went down to 124. * Denies any chest pain. EKG showed no acute ST changes. * already on eliquis * denies any chest pain * get 2D echo * Sl nitroglycerin prn * get cardiology consult based on echo results * #History of CVA with mild residual left sided weakness. PT/OT on board. #Hypertension: on spironolactone; hold spironolactone and lisinopril due to VALENCIA #Seizure disorder: on topiramate #History of prostate cancer: s/p radiation. On Bicalutamide #ALBINO: on CPAP #DVT prophylaxis: on eliquis CODE STATUS: Full code * Patient counseled extensively about different types of CODE STATUS including full code, DNR CCA and DNR CCA. Patient elects to be full code. Total [id number] time 16 minutes. Charges/Coding Visit Charges Inpatient E&M: 07912 Init Hosp L2 Procedures Hospitalists Procedures: 89288 Advncd Care Plan 30 Min
[2023-04-23 13:35] LABS: Troponin-I HS 124 pg/mL (3.0-78.0)
--- NOTE | 2023-04-23 13:37 | CT_ITS ---
EXAM: CT ANGIOGRAPHY CHEST WITH INTRAVENOUS CONTRAST CLINICAL INDICATION: PE TECHNIQUE: Helically acquired angiography images were obtained of the chest with intravenous contrast. This CT exam was performed using one or more of the following dose reduction techniques: automated exposure control, adjustment of the mA and/or kV according to patient size, and/or use of iterative reconstruction technique. MIP reconstructed images were created and reviewed. CONTRAST: IV 100mL [id number] COMPARISON: No relevant prior studies available. FINDINGS: PULMONARY ARTERIES: Normal. Normal in caliber. No evidence of pulmonary embolism. AORTA: Normal. Normal in caliber. No evidence of dissection. GREAT VESSELS OF AORTIC ARCH: Normal. Normal in caliber. No evidence of dissection. INFERIOR VENA CAVA: Contrast refluxes into distended inferior vena cava and hepatic veins indicative of increased right-sided heart pressure. LUNGS AND PLEURAL SPACES: Normal. No mass. No consolidation or edema. No pleural effusion or thickening. No pneumothorax. HEART: Heart is enlarged. Moderate coronary artery calcification. MEDIASTINUM: Normal. No mediastinal or hilar adenopathy. Esophagus is unremarkable. No hiatal hernia. THYROID: 2.2 cm right thyroid nodule. BONES/JOINTS: Normal. No suspicious lytic or blastic abnormality. GALLBLADDER AND BILE DUCTS: Small calcified gallstones. ADRENALS: Low-density enlargement of both adrenal glands suggestive of lipid rich adenomata. TUBES, LINES AND DEVICES: Automatic implantable cardioverter defibrillator (AICD) in place. CT/CTA Chest W/WO Contrast IMPRESSION: 1. No evidence of acute pulmonary embolism. 2. Cardiomegaly. 3. Cholelithiasis. 4. Bilateral adrenal adenomata. 5. 2.2 cm right thyroid nodule. Electronically Signed: Kenny Culp MD at 14:55 EDT ,
--- NOTE | 2023-04-23 13:41 | NURSING ---
DR WOOTEN FOR DR BOUCHER
[2023-04-23] MEDS: 0.9% Normal Saline 1,000 ML 1000 ML IV (13:44)
--- NOTE | 2023-04-23 13:52 | NURSING ---
PCU KORAM VALENCIA, GENERAL WEAKNESS, ELEVATED TROP
--- NOTE | 2023-04-23 14:07 | RAD_ITS ---
INDICATION: Injury/Pain EXAMINATION/TECHNIQUE: X-RAY - XR Pelvis 1 or 2 Views COMPARISON: None. FINDINGS: PELVIC BONES: No displaced fracture, destructive or sclerotic lesions. Note that overlapping bowel shadows may however obscure fine detail. Sacroiliac joints are unremarkable. No widening of the pubic symphysis. HIPS: Right hip arthroplasty. The left femoral head appears seated in the acetabulum. No displaced fracture seen in this mildly rotated frontal view. SOFT TISSUES: No soft tissue swelling or gas. RAD/Pelvis 1 or 2 Views IMPRESSION: No evidence of displaced pelvic or hip fracture. Electronically Signed: Geronimo Cadena MD at 17:28 EDT ,
--- NOTE | 2023-04-23 14:20 | ED.RN ---
THIS RN ATTEMPTED TO CALL [facility] TO LET HER KNOW PT IS BEING ADMITTED. PHONE WENT STRAIGHT TO [facility] AT 1421. PHONE NUMBER IS [phone].
--- NOTE | 2023-04-23 14:23 | ED.RN ---
[facility] AT 1424. PHONE CALL TAKEN BY TISH MATTHEWS.
[2023-04-23] MEDS: 0.9% Normal Saline 1,000 ML 125 ML IV (17:24)
[2023-04-23] MEDS: Insulin Glargine-YFGN 100 UNIT/ML Pen 27 UNIT SC (20:48)
[2023-04-23] MEDS: Carvedilol 3.125 MG TABLET PO (20:49)
[2023-04-23] MEDS: APIXABAN 5 MG TABLET PO (20:49)
[2023-04-23] MEDS: Pantoprazole Sodium 20 MG Tablet PO (20:49)
[2023-04-23] MEDS: traMADol 50 MG Tablet PO (20:49)
[2023-04-23] MEDS: Baclofen 10 MG Tablet 20 MG PO (20:49)
[2023-04-23 21:22] LABS: Bedside Glucose 200 mg/dL (74-106)
[2023-04-24] MEDS: 0.9% Normal Saline 1,000 ML 125 ML IV (01:15)
[2023-04-24 03:00] VITALS: BP 121/89; PULSE 70; RESP 18; TEMP 36.1; O2SAT 97
[2023-04-24] MEDS: Baclofen 10 MG Tablet 20 MG PO ×3 (05:07→21:51)
[2023-04-24 06:14] LABS: Absolute Lymphocyte Count 0.46 X10^3/uL (0.83-4.51); Absolute Neutrophil Count 5.8 X10^3/uL (2.0-7.7); Basophil# 0.04 X10^3/uL; Basophil% 0.6 % (0-1); Eosinophils% 2.8 % (0-5); Hematocrit 37.7 % (40-54); Hemoglobin 12.2 g/dL (13.0-16.5); Lymphocyte # 0.46 X10^3/ul (0.83-4.51); Lymphocyte % 6.5 % (19-41); Mean Corp Hgb Conc 32.4 g/dL (32-36); Mean Corpuscular Hgb 32.7 pg (27.0-32.0); Mean Corpuscular Volume 101.1 fL (80-94); Mean Platelet Vol. 10.6 fl (6.2-12.0); Monocyte# 0.53 X10^3/uL; Monocyte% 7.5 % (0-10); NRBC Flagged by Analyzer 0 % (0-5); Neutrophil # 5.82 X10^3/uL (2.7-7.7); POSITIVE DIFFERENTIAL YES; Platelet Count 140 K/mm3 (150-450); RBC Distribution Width CV 13.4 % (11.6-14.6); RBC Distribution Width SD 49.9 fl (35.1-43.9); Red Blood Count 3.73 M/mm3 (4.6-6.2); White Blood Count 7.1 K/mm3 (4.4-11.0)
[2023-04-24 06:38] LABS: Anion Gap 4 (5-15); BUN 46 mg/dL (7-18); BUN/Creat Ratio 31.5 RATIO (10-20); Calcium,Total 9.3 mg/dL (8.5-10.1); Chloride 112 mmol/L (98-107); Creatinine, Serum 1.46 mg/dL (0.70-1.30); EST Glomerular Filtration Rate 51 mL/min (>60); Est Glom Filt Rate - Afr Amer 61 mL/min (>60); Estimated Creatinine Clearance 47.08 ml/min; Glucose 120 mg/dL (74-106); Sodium Level 145 mmol/L (136-145)
[2023-04-24 06:45] LABS: Differential Indicated SCAN CRITERIA MET
[2023-04-24 07:01] LABS: Differential Comment SCANNED
[2023-04-24 08:45] VITALS: O2SAT 96
[2023-04-24 09:00] VITALS: BP 106/68; PULSE 70; RESP 16; TEMP 36.9; O2SAT 99
[2023-04-24] MEDS: Multivitamins,Therapeutic Tablet 1 TABLET PO (09:53)
[2023-04-24] MEDS: Carvedilol 3.125 MG TABLET PO ×2 (09:53→21:51)
[2023-04-24] MEDS: Pantoprazole Sodium 20 MG Tablet PO ×2 (09:54→21:51)
[2023-04-24] MEDS: APIXABAN 5 MG TABLET PO ×2 (09:54→21:51)
--- NOTE | 2023-04-24 10:25 | PN_ITS ---
Subjective Subjective Patient seen and examined. He says he feels a bit weak today. He however looks much better than he did when he came in. He still complains of pain in his left hip. He denies any fever or chills, any other symptoms. Review of systems otherwise negative. Creatinine has trended down to 1.46 today. Objective Data Objective Data Vital Signs: Vital Signs Temp Pulse Resp BP Pulse Ox O2 Del Method O2 Flow Rate 98.5 F 70 16 106/68 99 Nasal Cannula 2 04/24/23 09:00 04/24/23 09:00 04/24/23 09:00 04/24/23 09:00 04/24/23 09:00 04/24/23 09:00 04/24/23 09:00 Oxygen Flow Rate (L/min) 2 Oxygen Delivery Method Nasal Cannula Weight: 192 lb Body Mass Index (BMI) 28.3 Intake & Output: Intake and Output for Last 24 Hours 04/22/23 04/23/23 04/24/23 23:59 23:59 23:59 Intake Total 1000 / 1000 2031.25 / 2031.25 Output Total 450 / 450 200 / 200 Balance 550 / 550 1831.25 / 1831.25 Lab / Micro Data Result Diagrams: 04/24/23 05:49 04/24/23 05:49 Labs: Laboratory Results - last 24 hr 04/23/23 10:44: WBC 8.8, RBC 4.25 L, Hgb 13.9, Hct 41.4, MCV 97.4 H, MCH 32.7 H, MCHC 33.6, RDW Std Deviation 49.1 H, RDW Coeff of Yonathan 13.7, Plt Count 183, MPV 11.3, Immature Gran % (Auto) 0.500, Neut % (Auto) 84.7 H, Lymph % (Auto) 7.2 L, [place] % (Auto) 6.6, Eos % (Auto) 0.7, Baso % (Auto) 0.3, Absolute Neuts (auto) 7.4, Absolute Lymphs (auto) 0.63 L, Nucleated RBC % 0 04/23/23 10:44: PT 20.3 H, INR 1.7, APTT 34.0 04/23/23 10:44: Sodium 143, Potassium 4.1, Chloride 104, Carbon Dioxide 31.0, Anion Gap 8, BUN 57 H, Creatinine 2.04 H, Estim Creat Clear Calc 33.69, Est GFR (MDRD) Af Amer 42 L, Est GFR (MDRD) Non-Af 34 L, BUN/Creatinine Ratio 27.9 H, Glucose 146 H, Calcium 9.9, Total Bilirubin 0.90, AST 23, ALT 22, Alkaline Phosphatase 130 H, Troponin I High Sens 126 H*, Total Protein 8.3 H, Albumin 3.7, Globulin 4.6 H, Albumin/Globulin Ratio 0.8 L, Lipase 11 L 04/23/23 10:44: Ammonia 13.0 04/23/23 11:06: Urine Color Yellow, Urine Clarity Clear, Urine pH 5.0, Ur Specific [place] 1.020, Urine Protein 15 H, Urine Glucose (UA) Normal, Urine Ketones Negative, Urine Occult Blood Negative, Urine Nitrite Negative, Urine Bi lirubin Negative, Urine Urobilinogen Normal, Ur Leukocyte Esterase Negative, Urine RBC 0 SEEN, Urine WBC 0 SEEN, Ur Squamous Epith Cells 0-5 SEEN, Urine Bacteria 0 SEEN, Urine Mucus 0 SEEN 04/23/23 13:00: Troponin I High Sens 124 H* 04/23/23 20:47: POC Glucose 200 H 04/24/23 05:49: WBC 7.1, RBC 3.73 L, Hgb 12.2 L, Hct 37.7 L, MCV 101.1 H, MCH 32.7 H, MCHC 32.4, RDW Std Deviation 49.9 H, RDW Coeff of Yonathan 13.4, Plt Count 140 L, MPV 10.6, Immature Gran % (Auto) 0.600, Neut % (Auto) 82.0 H, Lymph % (Auto) 6.5 L, [place] % (Auto) 7.5, Eos % (Auto) 2.8, Baso % (Auto) 0.6, Absolute Neuts (auto) 5.8, Absolute Lymphs (auto) 0.46 L, Nucleated RBC % 0, Differential Comment SCANNED 04/24/23 05:49: Sodium 145, Potassium 4.0, Chloride 112 H, Carbon Dioxide 29.0, Anion Gap 4 L, BUN 46 H, Creatinine 1.46 H, Estim Creat Clear Calc 47.08, Est GFR (MDRD) Af Amer 61, Est GFR (MDRD) Non-Af 51 L, BUN/Creatinine Ratio 31.5 H, Glucose 120 H, Calcium 9.3 Micro: Microbiology 04/23/23 10:44 Nasal Secretion SARS-CoV-2 & FLU Antigen (Rapid) - Final Radiography Diagnostic Testing: Radiology Impression Chest X-Ray 04/23/23 10:31 IMPRESSION: No acute pulmonary abnormality. Stable cardiomegaly. Electronically Signed: Kenny Culp MD at 11:10 EDT , Chest CTA 04/23/23 13:37 IMPRESSION: 1. No evidence of acute pulmonary embolism. 2. Cardiomegaly. 3. Cholelithiasis. 4. Bilateral adrenal adenomata. 5. 2.2 cm right thyroid nodule. Electronically Signed: Kenny Culp MD at 14:55 EDT , Pelvis X-Ray 04/23/23 14:07 IMPRESSION: No evidence of displaced pelvic or hip fracture. Electronically Signed: Geronimo Cadena MD at 17:28 EDT , Physical Exam Const alert, oriented x3 and no apparent distress Constitutional Narrative: lethargic General Appearance: cooperative HEENT normocephalic, head/scalp atraumatic and hearing grossly normal bilaterally Eyes PERRL, EOMs intact bilaterally and conjunctivae normal Neck no lymphadenopathy and supple Resp normal respiratory effort, normal air movement, no retractions and no use of accessory muscles Cardio regular rate, regular rhythm, S1 normal heart sound, S2 normal heart sound and no murmurs GI normal to inspection, nondistended, normoactive bowel sounds, soft to palpation, non-tender and non-distended Extremity normal to inspection, full ROM, normal capillary refill and no clubbing, cyanosis or edema Neuro oriented x3, CN's II-XII intact bilaterally, moves all extremities and no focal motor deficits Sensorium / Orientation: awake and alert Motor Exam: strength 5/5 throughout Psych affect normal Appearance: appropriate Assessment & Plan Assessment/Plan (1) Generalized weakness: (2) Adult failure to thrive: (3) VALENCIA (acute kidney injury): PLAN: Plan #VALENCIA * CR is down to 1.46 today. Continue gentle hydration * baseline Cr is ~ 1.16 * likely pre renal due to decreased intake * continue to trend Cr * #Debility and fialure to thrive * CT chest showed no evidence of PE * PT/OT consult. Fall precautions * #Elevated troponins * Initial troponin was 126 and went down to 124. * Denies any chest pain. EKG showed no acute ST changes. * already on eliquis * denies any chest pain * 2D echo ordered; to be done tomorrow * Sl nitroglycerin prn * cardiology consulted * #History of CVA with mild residual left sided weakness. PT/OT on board. #Hypertension: on spironolactone; hold spironolactone and lisinopril due to VALENCIA #Seizure disorder: on topiramate #History of prostate cancer: s/p radiation. On Bicalutamide #ALBINO: on CPAP #DVT prophylaxis: on eliquis CODE STATUS: Full code * Charges/Coding Visit Charges Inpatient E&M: 79942 Subs Hosp L2
[2023-04-24] MEDS: Lidocaine 5% Patch 1 PATCH TOPICAL (11:31)
[2023-04-24 12:40] VITALS: O2SAT 97
[2023-04-24] MEDS: traMADol 50 MG Tablet PO (15:02)
[2023-04-24 15:03] VITALS: BP 125/73; PULSE 70; RESP 16; TEMP 36.6; O2SAT 98
[2023-04-24 21:03] VITALS: BP 123/74; PULSE 70; RESP 16; TEMP 37.1; O2SAT 95
[2023-04-24] MEDS: Insulin Glargine-YFGN 100 UNIT/ML Pen 27 UNIT SC (21:52)
[2023-04-24 22:18] LABS: Bedside Glucose 209 mg/dL (74-106)
[2023-04-25 03:00] VITALS: BP 127/86; PULSE 69; RESP 16; TEMP 36.6; O2SAT 96
[2023-04-25 04:30] VITALS: O2SAT 96
[2023-04-25] MEDS: Baclofen 10 MG Tablet 20 MG PO ×2 (05:52→13:31)
--- NOTE | 2023-04-25 05:55 | ECHOCS_ITS ---
Reason For Study: Elevated Troponins Procedure This was a 2D Doppler, Color Flow transthoracic echocardiogram. The study was technically difficult. Contrast injection was performed. Exam performed portable in patient room. Left Ventricle Normal LV size. Mild concentric left ventricular hypertrophy. Severe global left ventricular systolic dysfunction. The left ventricular ejection fraction is 25 %. Stage 3 diastolic dysfunction. Right Ventricle Normal RV size. ICD or pacer leads identified within the right ventricle. Mild global right ventricular systolic dysfunction. Atria The left atrium is severely enlarged. The right atrium is moderately enlarged. ICD or pacer leads identified within the right atrium. Mitral Valve Mild (1+) mitral valve insufficiency. Tricuspid Valve Mild tricuspid valve insufficiency. Right ventricular systolic pressure estimated to be 63 mmHg. Aortic Valve Normal aortic valve. Pulmonic Valve The pulmonic valve is not well visualized. Great Vessels Normal sized aortic root. Pericardium/Pleural No pericardial effusion. Medication Diluted definity 3ml given slow IV push to enhance endocardial definition. MMode/2D Measurements & Calculations LVIDd: 5.8 cm IVSd: 1.2 cm Ao root diam: 3.4 cm LVIDs: 5.0 cm LVPWd: 1.0 cm LA dimension: 4.9 cm RVDd: 5.0 cm FS: 12.4 % LAV(MOD-bp): 113.5 ml LVAd ap4: 57.0 cm2 SV(MOD-sp4): 84.9 ml LAV(MOD-bp) Indexed: 55.9 ml/m2 LVLd ap4: 10.0 cm LAV(MOD-sp2): 92.8 ml EDV(MOD-sp4): 262.8 ml LAV(MOD-sp4): 119.0 ml EDV(sp4-el): 274.7 ml LVAs ap4: 44.6 cm2 LVLs ap4: 9.2 cm ESV(MOD-sp4): 177.9 ml ESV(sp4-el): 182.2 ml EF(MOD-sp4): 32.3 % EF(sp4-el): 33.7 % SV(sp4-el): 92.5 ml LA A4 area: 31.7 cm2 RA A4 area: 28.0 cm2 TAPSE: 1.6 cm Time Measurements MV dec time: 0.20 sec Doppler Measurements & Calculations MV E max prabhjot: 100.4 cm/sec Lat Peak E' Prabhjot: 8.2 cm/sec Med Peak E' Prabhjot: 6.3 cm/sec MV A max prabhjot: 18.6 cm/sec E/E' lat: 12.3 E/E' med: 15.8 MV E/A: 5.4 MV V2 max: 191.7 cm/sec MV P1/2t max prabhjot: 106.2 cm/sec Ao V2 max: 146.2 cm/sec MV max P.6 mmHg MV P1/2t: 64.5 msec Ao max P.6 mmHg MV V2 mean: 131.1 cm/sec Ao V2 mean: 96.6 cm/sec MV mean P.6 mmHg MV dec slope: 482.2 cm/sec2 Ao mean P.4 mmHg MV V2 VTI: 57.4 cm MVA(P1/2t): 3.4 cm2 Ao V2 VTI: 25.9 cm AV (velocity ratio): 0.68 LV V1 max: 106.8 cm/sec PA V2 max: 67.0 cm/sec LV V1 max P.6 mmHg PI dec slope: 226.2 cm/sec2 LV V1 mean P.1 mmHg LV V1 mean: 65.2 cm/sec LV V1 VTI: 17.7 cm TR max prabhjot: 380.4 cm/sec TR max P.9 mmHg ECHO/Echo Complete W/ Contrast Interpretation Summary Mild concentric left ventricular hypertrophy. The left ventricular ejection fraction is 25 %. Stage 3 diastolic dysfunction. Mild global right ventricular systolic dysfunction. The left atrium is severely enlarged. Mild (1+) mitral valve insufficiency. Mild tricuspid valve insufficiency. Right ventricular systolic pressure estimated to be 63 mmHg. Ordering Physician: Fior Turner Referring Physician: Pratibha Canales M.D. Performed By: Jon Salvador RCS
[2023-04-25 05:59] LABS: Absolute Lymphocyte Count 0.54 X10^3/uL (0.83-4.51); Absolute Neutrophil Count 5.3 X10^3/uL (2.0-7.7); Basophil# 0.02 X10^3/uL; Basophil% 0.3 % (0-1); Eosinophil# 0.21 X10^3/uL; Eosinophils% 3.2 % (0-5); Hematocrit 35.2 % (40-54); Hemoglobin 11.3 g/dL (13.0-16.5); Lymphocyte # 0.54 X10^3/ul (0.83-4.51); Lymphocyte % 8.2 % (19-41); Mean Corp Hgb Conc 32.1 g/dL (32-36); Mean Corpuscular Hgb 32.3 pg (27.0-32.0); Mean Corpuscular Volume 100.6 fL (80-94); Mean Platelet Vol. 11.4 fl (6.2-12.0); Monocyte# 0.46 X10^3/uL; NRBC Flagged by Analyzer 0 % (0-5); Neutrophil # 5.33 X10^3/uL (2.7-7.7); Neutrophil % 80.5 % (47-70); POSITIVE DIFFERENTIAL YES; Platelet Count 120 K/mm3 (150-450); RBC Distribution Width CV 13.5 % (11.6-14.6); RBC Distribution Width SD 49.8 fl (35.1-43.9); White Blood Count 6.6 K/mm3 (4.4-11.0)
[2023-04-25 06:03] LABS: Differential Indicated SCAN CRITERIA MET
[2023-04-25 06:32] LABS: Anion Gap 4 (5-15); BUN 34 mg/dL (7-18); BUN/Creat Ratio 26.4 RATIO (10-20); Calcium,Total 8.9 mg/dL (8.5-10.1); Chloride 112 mmol/L (98-107); Creatinine, Serum 1.29 mg/dL (0.70-1.30); EST Glomerular Filtration Rate 58 mL/min (>60); Est Glom Filt Rate - Afr Amer 71 mL/min (>60); Estimated Creatinine Clearance 53.28 ml/min; Glucose 144 mg/dL (74-106); Potassium 3.8 mmol/L (3.5-5.1); Sodium Level 144 mmol/L (136-145)
[2023-04-25 06:44] LABS: Macrocytosis 1+; Platelet Estimate SLT DEC (ADEQ)
[2023-04-25 07:15] VITALS: O2SAT 98
[2023-04-25 09:00] VITALS: BP 135/82; PULSE 70; RESP 18; TEMP 36.5; O2SAT 95
[2023-04-25] MEDS: Lidocaine 5% Patch 1 PATCH TOPICAL (09:57)
[2023-04-25] MEDS: Pantoprazole Sodium 20 MG Tablet PO (09:57)
[2023-04-25] MEDS: Multivitamins,Therapeutic Tablet 1 TABLET PO (09:57)
[2023-04-25] MEDS: Carvedilol 3.125 MG TABLET PO (09:58)
[2023-04-25] MEDS: APIXABAN 5 MG TABLET PO (09:58)
--- NOTE | 2023-04-25 10:23 | CASEMGMT ---
Patient is from [place]. SW met with patient. Introduced self and role at [facility]. Patient confirmed his plan is to return to [place]. Updates will be sent to [place]. Plan: d/c back to [place] under skilled level of care. Yasmine MANSFIELD
--- NOTE | 2023-04-25 11:32 | CASEMGMT ---
Discharge Planning Updates sent to [facility] Kayleigh Valencia, [place] Planning Asst.
--- NOTE | 2023-04-25 12:06 | PCM.TXEXTCAR ---
Diet Diet Order/Speech Therapy: 04/24/23 13:00 Diet: Cardiac: Calorie-Controlled Food consistency:: Regular Liquid Consistency:: Regular/Thin Dietary Modifications:: Consistent Carbohydrate Sodium Restricted How many daily calories?: 2000 calorie Routine Orders/Code Status Routine Lab Work: CBC and BMP Code Status: Full Code Therapies Physical Therapy: Eval and Treat Occupational Therapy: Eval and Treat Problem/Diagnosis (1) Generalized weakness: Status: Acute Code(s): R53.1 - Weakness (2) Adult failure to thrive: Status: Acute Code(s): R62.7 - Adult failure to thrive (3) VALENCIA (acute kidney injury): Status: Acute Code(s): N17.9 - Acute kidney failure, unspecified Allergies/Procedures Done in Hospital Allergies acetaminophen Adverse Reaction (Verified 04/23/23 10:15) Other oxycodone Adverse Reaction (Verified 04/23/23 10:15) hallucinations Procedures: 2-D Echocardiogram Type of Care/Length of Stay Estimated LOS: Convalescent Care Less Than 30 days Type of Care Needed: Skilled Rehab Potential: Good Prognosis: Good Additional Orders/Day of Discharge Day of Discharge: 04/25/23 Dietary and Speech Recommendations Dietitian Recommendations/Changes: Will adjust diet to 2000 calorie/consistent carbohydrate; cardiac/sodium-restricted. ONS as needed if PO fails at meals; will defer for now. Discharge Plan Admission Admit Date/Time: 04/23/23 13:41 Attending Provider: Maximo Addison Primary Care Provider: Pratibha Canales Consulting Providers: Fior Turner Discharge Orders/Prescriptions Prescriptions: Continued bicalutamide [Casodex] 50 mg tablet 50 mg PO DAILY omeprazole 20 mg capsule,delayed release(DR/EC) 20 mg PO BID baclofen 20 mg tablet 20 mg PO TID Qty: 90 5RF insulin glargine 100 UNIT/ML insulin pen 27 unit SQ QHS multivitamin Tablet 1 tab PO DAILY carvedilol 3.125 mg tablet 3.125 mg PO BID Eliquis 5 mg tablet 5 mg PO BID Rx Instructions: TAKE ONE (1) TABLET BY MOUTH TWICE DAILY tramadol 50 mg tablet 50 mg PO Q12H PRN PRN (Reason: Pain) Label Comments: TAKE 1 TABLET BY MOUTH EVERY 6 HOURS NEEDED FOR PAIN FOR 7 DAYS dextrose [Glucose Gel] 40 % Gel 15 g PO Q15M PRN (Reason: Hypoglycemia) Rx Instructions: until symptoms of low blood sugar are controlled Held lisinopril 40 mg tablet 40 mg PO DAILY Hold Instructions: Resume on 04/26/23. bumetanide 1 mg tablet 1 tab PO TID Hold Instructions: Resume on 04/27/23. Label Comments: TAKE 3 TABLETS BY MOUTH ONCE DAILY Referrals / Follow Up: Pratibha Canales MD [Primary Care Provider] - Disposition Disposition (needs filled in before D/C Order can be placed): Group Home Facility
[2023-04-25 12:31] VITALS: BP 135/82; PULSE 70; RESP 18; TEMP 36.5; O2SAT 95
--- NOTE | 2023-04-25 13:39 | PHA.DC.MR ---
Pharmacy Service has performed discharge medication reconciliation for this patient. The patient's discharge medication list was reviewed for discrepancies and discrepancies were resolved. Home Medications insulin glargine 100 unit/mL (3 mL) subcutaneous pen 27 unit SQ QHS diabetes 10/30/18 bicalutamide 50 mg tablet (Casodex) 50 mg PO DAILY prostate 12/10/21 multivitamin 1 tab PO DAILY supplement 02/19/22 bumetanide 1 mg tablet 1 tab PO TID water pill 04/25/22 lisinopril 40 mg tablet 40 mg PO DAILY blood pressure 09/09/22 omeprazole 20 mg capsule,delayed release 20 mg PO BID reflux 09/09/22 baclofen 20 mg tablet 20 mg PO TID #90 tabs 12/23/22 apixaban 5 mg tablet (Eliquis) 5 mg PO BID blood thinner 04/13/23 carvedilol 3.125 mg tablet 3.125 mg PO BID BP 04/13/23 dextrose 40 % oral gel (Glucose Gel) 15 g PO Q15M PRN Hypoglycemia 04/23/23 tramadol 50 mg tablet 50 mg PO Q12H PRN PRN Pain 04/23/23
--- NOTE | 2023-04-25 14:58 | CASEMGMT ---
Discharge Planning Discharge order, signed med list, covid results, and transport time sent to [facility] via [facility]. Patient will be transported in by Phys[facility]. Nursing, SW, patient, and his POA, Bob, all notified. Kayleigh Valencia, Discharge Planning Asst.
--- NOTE | 2023-04-25 16:40 | DS.PCM_ITS ---
Providers Date of Admission: 04/23/23 Primary Care Physician: Dr. Pratibha Canales MD Reason For Visit: HYPOXIA, VALENCIA Diagnosis Discharge Diagnosis (1) Generalized weakness: Status: Acute Code(s): R53.1 - Weakness (2) Adult failure to thrive: Status: Acute Code(s): R62.7 - Adult failure to thrive (3) VALENCIA (acute kidney injury): Status: Acute Code(s): N17.9 - Acute kidney failure, unspecified Medications at Discharge Home Medications insulin glargine 100 unit/mL (3 mL) subcutaneous pen 27 unit SQ QHS diabetes 10/30/18 bicalutamide 50 mg tablet (Casodex) 50 mg PO DAILY prostate 12/10/21 multivitamin 1 tab PO DAILY supplement 02/19/22 bumetanide 1 mg tablet 1 tab PO TID water pill 04/25/22 lisinopril 40 mg tablet 40 mg PO DAILY blood pressure 09/09/22 omeprazole 20 mg capsule,delayed release 20 mg PO BID reflux 09/09/22 baclofen 20 mg tablet 20 mg PO TID #90 tabs 12/23/22 apixaban 5 mg tablet (Eliquis) 5 mg PO BID blood thinner 04/13/23 carvedilol 3.125 mg tablet 3.125 mg PO BID BP 04/13/23 dextrose 40 % oral gel (Glucose Gel) 15 g PO Q15M PRN Hypoglycemia 04/23/23 tramadol 50 mg tablet 50 mg PO Q12H PRN PRN Pain 04/23/23 Hospital Course Operations None Procedures 2-D Echocardiogram Summary of Care Provided Minutes Spent on Discharge: 36 Hospital Course: Per HPI: STEPH BAUMANN, is a 72 M with a PMH as outlined who presents via the ED on 04/23/2023 with a complaint of generalised weakness from his SNF. This is his third admission over the last few weeks for generalised weakness. He was recently discharged to the longterm facility on 04/16/2023 from where he presents today on account of weakness.? Staff and intermediate also noted that he was hypoxic by pulse oximeter.? He denied any shortness of breath or cough or chest pain.? He denied any fever or chills.? He only complained of left hip pain.? Review of systems otherwise negative. Vitals in the ED were blood pressure 135/85 with respiratory rate of 20 and he was saturating at 100% on 2 L of oxygen.? Temperature was 98.4 Fahrenheit.? CBC showed WBC of 8.8 with hemoglobin of 13.9 and platelets of 183.? INR was 1.7.? Chemistry was significant for creatinine of 2.04 with a baseline of around 1.16.? CTA of the chest done was negative for any evidence of PE.? He complained of left hip pain and x-ray of the left hip done was negative for any evidence of fracture.? He has been admitted to be managed for VALENCIA and debility and deconditioning. Hospital Course: 1. VALENCIA with debility and failure to thrive/elevated troponins?72-year-old male presented from the intermediate where he is undergoing physical therapy for weakness presents to the hospital with initially what was thought to be hypoxia which was determined based on pulse oximetry at the intermediate however when EMS arrived his oxygen level was 94% while on room air however lab work determined that he did have an VALENCIA which was felt to be prerenal and has since resolved with holding diuretics and his ETHAN inhibitor. As for his debility he is already at a SNF receiving physical therapy so we will plan to discharge back to SNF to help improve his debility. As for his VALENCIA I do recommend holding his lisinopril for 1 more day and then can restart his Bumex and 2 more days. I do recommend outpatient monitoring of his renal function early regularly given his diuretics and monitoring his p.o. intake. I discussed with him the plan for discharge today and he expressed understanding of the risk benefits going back to SNF and would like to go today. As for his troponin elevation is likely demand ischemia he denied any chest pain on admission and it is trending down. He did have an echo which did not show any new systolic dysfunction, he continues to have pulmonary hypertension as well as diastolic dysfunction which is unchanged. 2. History of a CVA, hypertension, hyperlipidemia, chronic combined CHF, CAD, seizure disorder, history of prostate cancer, ALBINO are chronic medical conditions which complicate his care. His home medications were continued where appropriate Physical Exam Narrative General: Alert, Oriented x3, Cooperative, No apparent distress HEENT: Atraumatic, PERRLA, EOMI, Normocephalic Oral: Moist Mucosa Neck: Supple, No JVD Lungs: Diminished, Normal air movement, No rhonchi, No wheeze, No rales Cardiovascular: Regular rate, Regular Rhythm, Normal S1, Normal S2, No murmurs Abdomen: Soft, Non Tender, Non-Distended, No Hepato-splenomegaly Extremities: No edema, Capillary Refill Less than 3 Seconds Skin: No rashes, No breakdown Musculoskeletal: No Tenderness to Palpation of Joints or Extremities Neurological: Cranial nerves II-XII grossly intact, Motor Exam 5/5 strength throughout, Sensory exam intact to light touch and pain Psych/Mental Status: Flat Weight / BMI Weight Weight: 192 lb 0.362 oz Body Mass Index (BMI) 28.3 ABG / Lab / Microbiology Data Result Diagrams: 04/25/23 05:13 04/25/23 05:13 Laboratory: Laboratory Results - last 24 hr 04/24/23 21:49: POC Glucose 209 H 04/25/23 05:13: WBC 6.6, RBC 3.50 L, Hgb 11.3 L, Hct 35.2 L, MCV 100.6 H, MCH 32.3 H, MCHC 32.1, RDW Std Deviation 49.8 H, RDW Coeff of Yonathan 13.5, Plt Count 120 L, MPV 11.4, Immature Gran % (Auto) 0.800, Neut % (Auto) 80.5 H, Lymph % (Auto) 8.2 L, Power % (Auto) 7.0, Eos % (Auto) 3.2, Baso % (Auto) 0.3, Absolute Neuts (auto) 5.3, Absolute Lymphs (auto) 0.54 L, Nucleated RBC % 0, Platelet Estimate SLT DEC, Macrocytosis 1+ 04/25/23 05:13: Sodium 144, Potassium 3.8, Chloride 112 H, Carbon Dioxide 28.0, Anion Gap 4 L, BUN 34 H, Creatinine 1.29, Estim Creat Clear Calc 53.28, Est GFR (MDRD) Af Amer 71, Est GFR (MDRD) Non-Af 58 L, BUN/Creatinine Ratio 26.4 H, Glucose 144 H, Calcium 8.9 Microbiology: Microbiology 04/25/23 14:45 Nasal Secretion SARS-CoV-2 Antigen (Rapid) - Final 04/23/23 10:44 Nasal Secretion SARS-CoV-2 & FLU Antigen (Rapid) - Final Radiography Diagnostic Testing: Radiology Impression Echocardiogram 04/25/23 05:55 Interpretation Summary Mild concentric left ventricular hypertrophy. The left ventricular ejection fraction is 25 %. Stage 3 diastolic dysfunction. Mild global right ventricular systolic dysfunction. The left atrium is severely enlarged. Mild (1+) mitral valve insufficiency. Mild tricuspid valve insufficiency. Right ventricular systolic pressure estimated to be 63 mmHg. Ordering Physician: Fior Turner Referring Physician: Pratibha Canales M.D. Performed By: Jon Salvador RCS Meaningful Use Info Meaningful Use Diagnoses (Choose all that apply): None applicable Discharge Plan Admission Admit Date/Time: 04/23/23 13:41 Attending Provider: Maximo Addison Primary Care Provider: Pratibha Canales Consulting Providers: Fior Turner Discharge Orders/Prescriptions Prescriptions: Continued bicalutamide [Casodex] 50 mg tablet 50 mg PO DAILY omeprazole 20 mg capsule,delayed release(DR/EC) 20 mg PO BID baclofen 20 mg tablet 20 mg PO TID Qty: 90 5RF insulin glargine 100 UNIT/ML insulin pen 27 unit SQ QHS multivitamin Tablet 1 tab PO DAILY carvedilol 3.125 mg tablet 3.125 mg PO BID Eliquis 5 mg tablet 5 mg PO BID Rx Instructions: TAKE ONE (1) TABLET BY MOUTH TWICE DAILY tramadol 50 mg tablet 50 mg PO Q12H PRN PRN (Reason: Pain) Label Comments: TAKE 1 TABLET BY MOUTH EVERY 6 HOURS NEEDED FOR PAIN FOR 7 DAYS dextrose [Glucose Gel] 40 % Gel 15 g PO Q15M PRN (Reason: Hypoglycemia) Rx Instructions: until symptoms of low blood sugar are controlled Held lisinopril 40 mg tablet 40 mg PO DAILY Hold Instructions: Resume on 04/26/23. bumetanide 1 mg tablet 1 tab PO TID Hold Instructions: Resume on 04/27/23. Label Comments: TAKE 3 TABLETS BY MOUTH ONCE DAILY Referrals / Follow Up: Pratibha Canales MD [Primary Care Provider] - Disposition Disposition (needs filled in before D/C Order can be placed): [facility] Charges/Coding Visit Charges Inpatient E&M: 09094 Disch Hosp >30min
== END 2023-04-25 16:21 | disposition skilled nursing facility (03) | DRG 683 ==
LOC: ED 13:54 → PCU 14:27
PROVIDERS: Admitting Provider Student in an Organized Health Care Education/Training Program; Emergency Provider Emergency Medicine; PCP Internal Medicine; Visit Provider Family Medicine
DX: N17.9 Acute kidney failure, unspecified (principal); I13.0 Hypertensive heart and chronic kidney disease with heart failure and stage 1 through stage 4 chronic kidney disease, or unspecified chronic kidney disease; I50.42 Chronic combined systolic (congestive) and diastolic (congestive) heart failure; I42.8 Other cardiomyopathies; I24.8 Other forms of acute ischemic heart disease; I69.354 Hemiplegia and hemiparesis following cerebral infarction affecting left non-dominant side; E11.22 Type 2 diabetes mellitus with diabetic chronic kidney disease; G40.909 Epilepsy, unspecified, not intractable, without status epilepticus; Z79.4 Long term (current) use of insulin; I25.10 Atherosclerotic heart disease of native coronary artery without angina pectoris; E78.5 Hyperlipidemia, unspecified; G47.33 Obstructive sleep apnea (adult) (pediatric); N18.9 Chronic kidney disease, unspecified; R77.8 Other specified abnormalities of plasma proteins; Z87.891 Personal history of nicotine dependence; Z66 Do not resuscitate; Z92.3 Personal history of irradiation; Z79.01 Long term (current) use of anticoagulants; R62.7 Adult failure to thrive; Z85.46 Personal history of malignant neoplasm of prostate
CPT/HCPCS: 36415; 71045; 71275; 72170; 80048; 80053; 81001; 82140; 82962; 83690; 84484; 85025; 85610; 85730; 87426; 87428; 93005; 93306; 97116; 97162; 97166; 97530; 97535; 99252; 99285; J7030; Q9957; Q9967; A4216; C8929; G0463

== ENCOUNTER → 2023-05-04 | Outpatient (CLI) | payer MEDICARE, OTHER, SELFPAY ==
[2023-05-03 17:20] LABS: PSA,Total- Diagnostic < 0.01 ng/mL (0.0-4.0)
== END | disposition home or self-care (01) ==
LOC: LAB 16:48
PROVIDERS: Internal Medicine; PCP Internal Medicine; Referring Provider Urology; Visit Provider Urology
DX: C61 Malignant neoplasm of prostate (principal)
CPT/HCPCS: 36415; 84153

== ENCOUNTER → 2023-05-25 | Outpatient (REF) | payer SELFPAY ==
[2023-05-25 10:19] LABS: Absolute Lymphocyte Count 0.35 X10^3/uL (0.83-4.51); Absolute Neutrophil Count 3.2 X10^3/uL (2.0-7.7); Basophil# 0.02 X10^3/uL; Basophil% 0.5 % (0-1); Eosinophil# 0.21 X10^3/uL; Eosinophils% 5.2 % (0-5); Hematocrit 37.3 % (40-54); Lymphocyte # 0.35 X10^3/ul (0.83-4.51); Lymphocyte % 8.7 % (19-41); Mean Corp Hgb Conc 32.2 g/dL (32-36); Mean Corpuscular Hgb 32.5 pg (27.0-32.0); Mean Corpuscular Volume 101.1 fL (80-94); Mean Platelet Vol. 12.2 fl (6.2-12.0); Monocyte# 0.27 X10^3/uL; Monocyte% 6.7 % (0-10); NRBC Flagged by Analyzer 0 % (0-5); Neutrophil # 3.15 X10^3/uL (2.7-7.7); Neutrophil % 77.9 % (47-70); POSITIVE DIFFERENTIAL YES; Platelet Count 110 K/mm3 (150-450); RBC Distribution Width SD 51.3 fl (35.1-43.9); Red Blood Count 3.69 M/mm3 (4.6-6.2)
[2023-05-25 10:29] LABS: Differential Indicated SCAN CRITERIA MET
[2023-05-25 10:31] LABS: Anion Gap 6 (5-15); BUN 26 mg/dL (7-18); BUN/Creat Ratio 17.6 RATIO (10-20); Calcium,Total 8.6 mg/dL (8.5-10.1); Chloride 109 mmol/L (98-107); Creatinine, Serum 1.48 mg/dL (0.70-1.30); EST Glomerular Filtration Rate 50 mL/min (>60); Est Glom Filt Rate - Afr Amer 60 mL/min (>60); Glucose 169 mg/dL (74-106); Magnesium 2.1 mg/dL (1.6-2.6); Potassium 3.8 mmol/L (3.5-5.1); Sodium Level 140 mmol/L (136-145)
[2023-05-25 10:36] LABS: Vitamin B12 1077 pg/mL (211-911); Vitamin D,25 Hydroxy 47.9 ng/mL
[2023-05-25 11:54] LABS: Hemoglobin A1c 8.3 % (3.8-5.6)
[2023-05-27 13:28] LABS: Pathologist Review Reviewed
== END ==
LOC: OLS.SW 05:00
PROVIDERS: PCP Internal Medicine; Visit Provider Internal Medicine
DX: Z02.2 Encounter for examination for admission to residential institution (principal)
CPT/HCPCS: 36415; 80048; 82306; 82607; 83036; 83735; 85025

== ENCOUNTER → 2023-06-13 | Outpatient (REF) | payer SELFPAY ==
[2023-06-13 09:47] LABS: Absolute Lymphocyte Count 0.36 X10^3/uL (0.83-4.51); Absolute Neutrophil Count 6.1 X10^3/uL (2.0-7.7); Basophil# 0.04 X10^3/uL; Basophil% 0.6 % (0-1); Eosinophil# 0.26 X10^3/uL; Eosinophils% 3.6 % (0-5); Hematocrit 37.2 % (40-54); Hemoglobin 11.8 g/dL (13.0-16.5); Lymphocyte # 0.36 X10^3/ul (0.83-4.51); Mean Corp Hgb Conc 31.7 g/dL (32-36); Mean Corpuscular Hgb 31.7 pg (27.0-32.0); Mean Platelet Vol. 11.5 fl (6.2-12.0); Monocyte# 0.32 X10^3/uL; Monocyte% 4.5 % (0-10); NRBC Flagged by Analyzer 0 % (0-5); Neutrophil % 84.8 % (47-70); POSITIVE DIFFERENTIAL YES; Platelet Count 145 K/mm3 (150-450); RBC Distribution Width CV 13.5 % (11.6-14.6); RBC Distribution Width SD 49.7 fl (35.1-43.9); Red Blood Count 3.72 M/mm3 (4.6-6.2); White Blood Count 7.2 K/mm3 (4.4-11.0)
[2023-06-13 09:51] LABS: Differential Indicated SCAN CRITERIA MET
[2023-06-13 10:26] LABS: Anion Gap 7 (5-15); BUN 16 mg/dL (7-18); BUN/Creat Ratio 12.1 RATIO (10-20); Calcium,Total 8.3 mg/dL (8.5-10.1); Chloride 113 mmol/L (98-107); Creatinine, Serum 1.32 mg/dL (0.70-1.30); EST Glomerular Filtration Rate 57 mL/min (>60); Est Glom Filt Rate - Afr Amer 69 mL/min (>60); Glucose 326 mg/dL (74-106); Magnesium 1.9 mg/dL (1.6-2.6); Potassium 3.6 mmol/L (3.5-5.1); Sodium Level 141 mmol/L (136-145)
== END ==
LOC: OLS.SW 04:00
PROVIDERS: PCP Internal Medicine; Referring Provider Internal Medicine; Visit Provider Internal Medicine
DX: E11.22 Type 2 diabetes mellitus with diabetic chronic kidney disease (principal); N18.32 Chronic kidney disease, stage 3b; J96.11 Chronic respiratory failure with hypoxia; G20 Parkinson's disease
CPT/HCPCS: 36415; 80048; 83735; 85025

== ENCOUNTER 2023-06-21 12:20 | Inpatient (IN) | payer MEDICARE, OTHER, SELFPAY ==
[2023-06-21] VITALS (40 sets, daily range): BP systolic 100–119; BP diastolic 55–75; PULSE 69–75; RESP 11–31; TEMP 36–37; O2SAT 87–99; BMI 26.3; BMI 25.0
--- NOTE | 2023-06-21 12:34 | ED.RN ---
triage pulse ox obtained via portable pulse ox monitor 96%
--- NOTE | 2023-06-21 12:52 | EX.ED.CRITCA ---
HPI History of Present Illness Chief Complaint: Alt LOC [facility] Medical History Acute and chronic respiratory failure with hypoxia Acute heart failure with reduced ejection fraction and diastolic dysfunction Adult failure to thrive Ambulates with cane Anticoagulant long-term use Ascites Asthma Atherosclerosis of coronary artery of [place] heart without angina pectoris Atrial fibrillation and flutter Back pain Benign brain tumor Cholelithiasis Chronic combined systolic and diastolic CHF (congestive heart failure) Chronic kidney disease (CKD) Cirrhosis of liver Cirrhosis of liver with ascites CPAP (continuous positive airway pressure) dependence Debility Diabetes Diabetes mellitus, type II Essential (primary) hypertension Former smoker History of atrial fibrillation History of CVA (cerebrovascular accident) History of ulceration Hyperlipidemia Injury of back Insulin dependent diabetes mellitus Longstanding persistent atrial fibrillation Non-rheumatic tricuspid valve insufficiency Nonischemic cardiomyopathy NSTEMI (non-ST elevated myocardial infarction) (10/09/19) ALBINO (obstructive sleep apnea) Parkinson's disease 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 Right inguinal hernia Right ventricular systolic dysfunction Secondary pulmonary arterial hypertension Seizure disorder Sleep apnea Stasis edema of both lower extremities Stroke/cerebrovascular accident Thyroid disease Weakness Wears glasses Home Medications insulin glargine 100 unit/mL (3 mL) subcutaneous pen 27 unit SQ QHS diabetes 10/30/18 [History Last Taken 04/12/23] bicalutamide 50 mg tablet (Casodex) 50 mg PO DAILY prostate 12/10/21 [History Last Taken 04/13/23] multivitamin 1 tab PO DAILY supplement 02/19/22 [History Last Taken 04/13/23] omeprazole 20 mg capsule,delayed release 20 mg PO BID reflux 09/09/22 [History Last Taken 04/13/23] baclofen 20 mg tablet 20 mg PO TID #90 tabs 12/23/22 [Rx Last Taken 04/13/23] apixaban 5 mg tablet (Eliquis) 5 mg PO BID blood thinner 04/13/23 [History Last Taken 04/13/23] carvedilol 3.125 mg tablet 3.125 mg PO BID BP 04/13/23 [History Last Taken 04/12/23] dextrose 40 % oral gel (Glucose Gel) 15 g PO Q15M PRN Hypoglycemia 04/23/23 [History Last Taken Unknown] tramadol 50 mg tablet 50 mg PO Q12H PRN PRN Pain 04/23/23 [History Last Taken Unknown] acetazolamide 250 mg tablet 250 mg PO BID 06/08/23 [History Last Taken Unknown] carbidopa 25 mg-levodopa 100 mg tablet 1 tab PO TID 06/08/23 [History Last Taken Unknown] docusate sodium 100 mg capsule 100 mg PO BID 06/08/23 [History Last Taken Unknown] lisinopril 20 mg tablet 20 mg PO DAILY 06/08/23 [History Last Taken Unknown] potassium chloride 20 mEq tablet,extended release 20 meq PO DAILY 06/08/23 [History Last Taken Unknown] Allergy/AdvReac Type Severity Reaction Status Date / Time acetaminophen AdvReac Other Verified 06/21/23 12:27 oxycodone AdvReac hallucinati Verified 06/21/23 12:27 ons Family History Daughter Heart disease valve replacement/chf Diabetes Mother Thyroid disorder Surgical History Biventricular ICD (implantable cardioverter-defibrillator) in place (10/12/19) H/O excision of tumor of brain meninges (2011) History of arthroplasty of right hip History of cardiac catheterization History of cardioversion (05/05/20) History of left heart catheterization (08/31/19) History of percutaneous coronary intervention (10/10/19) History of right and left heart catheterization History of right hip hemiarthroplasty History of tonsillectomy Social History household members: none Smoking Status: Former smoker how long ago did patient quit smokin years second hand exposure: No alcohol intake: never substance use type: does not use regla/advent: None seatbelt use: always EXAM Physical Exam Const Vital Signs: 06/21/23 12:22 06/21/23 12:32 06/21/23 12:26 Temperature 96.8 F L 97.6 F L Temperature Source Temporal Temporal Pulse Rate 72 70 Respiratory Rate 20 H 20 H Respiratory Pattern Normal Blood Pressure 113/73 107/65 Blood Pressure Mean 86 79 Pulse Ox 96 96 Oxygen Delivery Method Room Air Room Air 06/21/23 13:26 06/21/23 12:46 06/21/23 12:50 Temperature 97.8 F Temperature Source Temporal Pulse Rate 69 70 70 Respiratory Rate 21 H 12 13 Respiratory Pattern Blood Pressure 106/73 Blood Pressure Mean 84 Pulse Ox 97 97 92 Oxygen Delivery Method Room Air 06/21/23 13:00 06/21/23 13:10 06/21/23 13:20 Temperature Temperature Source Pulse Rate 72 70 73 Respiratory Rate 22 H 21 H 23 H Respiratory Pattern Blood Pressure 106/55 L Blood Pressure Mean 72 Pulse Ox 94 96 Oxygen Delivery Method 06/21/23 13:25 06/21/23 13:30 06/21/23 13:40 Temperature Temperature Source Pulse Rate 72 70 73 Respiratory Rate 26 H 11 L 29 H Respiratory Pattern Blood Pressure 106/73 Blood Pressure Mean 84 Pulse Ox 96 Oxygen Delivery Method 06/21/23 13:45 06/21/23 13:50 06/21/23 14:00 Temperature Temperature Source Pulse Rate 70 74 74 Respiratory Rate 18 18 18 Respiratory Pattern Blood Pressure 100/75 Blood Pressure Mean 81 Pulse Ox 98 99 Oxygen Delivery Method 06/21/23 14:10 06/21/23 15:00 Temperature Temperature Source Pulse Rate 70 70 Respiratory Rate 27 H 20 H Respiratory Pattern Blood Pressure 108/64 Blood Pressure Mean 78 Pulse Ox 98 96 Oxygen Delivery Method Room Air [facility] MDM Narrative Medical decision making narrative: HISTORY OF PRESENT ILLNESS: 73-year-old male here with concern for altered mental status. The patient does not provide reliable history. Per [facility] report patient has been last Per nursing report patient episode of nausea vomiting earlier today. REVIEW OF SYSTEMS: Pertinent positives: Altered mental status, nausea and vomiting, decreased urine output Pertinent negatives: Patient does not provide a reliable history PHYSICAL EXAM: Nursing triage notes reviewed, Vital signs reviewed Constitutional: please see mdm HENT: MMM Eyes: Pupils equal round and reactive to light, Extraocular muscles intact Neck: No stridor, no JVD, full neck ROM Lungs: Clear to auscultation, No wheezing or rales. No increased work of breathing, no conversational dyspnea, no accessory muscle use, no nasal flaring. No respiratory distress noted Heart: Regular rate and rhythm, No murmurs, No rubs and No gallops, 2+ distal pulses (radial, femoral, posterior tibial) in all extremities Abdomen: Soft, there is no tenderness, rigidity, rebound or guarding, no obvious peritoneal signs, no palpable pulsatile abdominal masses, no auscultated abdominal bruit : No CVAT Extremities: No edema Neuro: Alert, surprisingly oriented to person place and time however makes nonsensical comments when questioned further, cranial nerves II through XII intact, 5/5 strength in all extremities. Intact sensation to light touch in all extremities, 2+ reflexes bilateral patella tendons. . No ataxia. Gait not assessed secondary to acuity of condition Skin: No rash or lesions noted MEDICAL DECISION MAKING: Chief Complaint: Altered mental status External records reviewed: Echocardiogram from April 2023 shows ejection fraction of 25% Factors affecting care: Liver cirrhosis, prostate cancer, type 2 diabetes, CKD, atrial fibrillation (on Eliquis), pulmonary artery hypertension, hypertension, hyperlipidemia, CVA CHF, Social determinants of health: Elderly History obtained from others: n [facility] Consults: Internal medicine ALL IMAGES (IF OBTAINED) HAVE BEEN PERSONALLY REVIEWED AND INTERPRETED BY MYSELF. MDM Narrative: Patient was hemodynamically stable, afebrile, nontoxic-appearing. Neuro exam without obvious focality. Patient was alert and oriented to person place and time ever did not provide reliable history. I considered the following differential diagnosis: ICH, electrolyte abnormality, hepatic encephalopathy, infectious cystopathy, dehydration CT scan was obtained of the head rule out ICH or intracranial normality causing change in mental status. CMP was obtained rule out electrolyte normalities or hepatic dysfunction. LFTs and ammonia were unremarkable. No obvious source of infection no white count no fever. Chest x-ray showed no evidence of pneumonia. Patient was noted to have VALENCIA on CKD. This is likely leading to type II demand ischemia with elevated troponin which is similar to baseline. EKG showed no evidence of ischemic changes or arrhythmia. T this is likely caused by nausea and vomiting. Given the patient's evidence of dehydration will admit the patient for gentle IV fluid resuscitation. The patient and/or family, caregivers express understanding. The patient and/or family, caregivers agrees with the plan. Shared decision making: I will have a discussion with the patient and or visitors regarding risk/benefits of further testing or admission. They will be made aware of of the risk/benefits inherent in this decision they will be given the opportunity to voice understanding. Total critical care time today provided was at least 0 minutes. This excludes separately billable procedures. Critical care time (if documented) is secondary to the patient having high probability of clinically significant/life threatening deterioration in the patient's condition which required my urgent intervention. Lab Data Attestation: I reviewed the patient's lab results. Lab results narrative: CBC without leukocytosis, no anemia, no thrombocytopenia Troponin initially elevated consistent with prior studies likely secondary to CKD, likely demand ischemia given EKG has no evidence of acute STEMI or other ischemic changes Lipase is wnl indicating no pancreatic inflammation. Urinalysis shows no evidence of urinary inflammation suggestive of UTI Labs: Laboratory Results - last 24 hr 06/21/23 06/21/23 06/21/23 13:10 13:25 13:57 WBC 9.2 RBC 4.65 Hgb 15.0 Hct 46.3 MCV 99.6 H MCH 32.3 H MCHC 32.4 RDW Std Deviation 50.8 H RDW Coeff of Yonathan 14.4 Plt Count 204 MPV 11.5 Sodium 142 Potassium 4.2 Chloride 107 Carbon Dioxide 27.0 Anion Gap 8 BUN 35 H Creatinine 2.33 H Estim Creat Clear Calc 29.08 Est GFR (MDRD) Af Amer 36 L Est GFR (MDRD) Non-Af 30 L BUN/Creatinine Ratio 15.0 Glucose 116 H Calcium 9.7 Ammonia 30.0 Troponin I High Sens 104 H B-Natriuretic Peptide 43.4 Lipase < 10 L Urine Color Yellow Urine Clarity Clear Urine pH 6.0 Ur Specific [place] 1.020 Urine Protein 30 H Urine Glucose (UA) Normal Urine Ketones 5 H Urine Occult Blood Negative Urine Nitrite Negative Urine Bilirubin 1 H Urine Urobilinogen 1 H Ur Leukocyte Esterase 25 H Urine RBC 0-5 SEEN Urine WBC 0-5 SEEN Ur Squamous Epith Cells 0-5 SEEN Urine Bacteria RARE Urine Mucus 0 SEEN Radiography Diagnostic Testing: Clinical Impression(s) from Imaging Studies Brain CT 06/21/23 13:28 IMPRESSION: Chronic involutional changes of the brain. Stable chronic changes more prominent in the right cerebral hemisphere. Electronically Signed: Erik Sandoval MD at 14:41 EDT , Chest X-Ray 06/21/23 13:28 IMPRESSION: Cardiomegaly. Prominence of the central pulmonary arteries. The lungs are clear. Electronically Signed: Erik Sandoval MD at 14:39 EDT , Chest x-ray read by myself shows no evidence of obvious pneumonia Discharge Plan Dx/Rx/DC Orders Clinical Impression: Acute dehydration, Elevated troponin, Nausea & vomiting, Acute alteration in mental status Disposition Disposition: Acute Care Hospital [facility]
--- NOTE | 2023-06-21 13:28 | CT_ITS ---
STUDY: CT BRAIN WITHOUT CONTRAST REASON FOR EXAM: Male, 73 years old. AMS RADIATION DOSAGE (If Supplied By Facility): CTDIvol = ( 44.99 ) mGy, DLP = ( 798.92 ) mGycm TECHNIQUE: Transaxial CT imaging of the brain was performed without administration of intravenous contrast material. Individualized dose optimization techniques were used for this CT. COMPARISON: Comparison is made with prior study dated April 10, 2023. FINDINGS: Normal soft tissue structures. Normal calvarium. There is mild cerebral atrophy with widening of the extra-axial spaces and ventricular dilatation. There are areas of decreased attenuation within the white matter tracts of the supratentorial brain, consistent with microvascular disease changes. Stable encephalomalacia involving the right posterior temporal and parietal occipital lobes. Stable encephalomalacia in the left precentral gyrus. Old lacunar infarcts in the left thalamus. Normal brainstem. Normal cerebellum. There is no intracranial hemorrhage. There are no findings of an acute ischemic infarction. Atherosclerotic calcification of the vertebral arteries and cavernous portions of the internal carotid arteries bilaterally. Normal visualized paranasal sinuses. CT/Brain/Head without Contrast IMPRESSION: Chronic involutional changes of the brain. Stable chronic changes more prominent in the right cerebral hemisphere. Electronically Signed: Erik Sandoval MD at 14:41 EDT ,
--- NOTE | 2023-06-21 13:28 | EKG12_ITS ---
Test Reason : Blood Pressure : / mmHG Vent. Rate : 070 BPM Atrial Rate : 375 BPM P-R Int : 000 ms QRS Dur : 178 ms QT Int : 508 ms P-R-T Axes : 000 192 035 degrees QTc Int : 548 ms Ventricular-paced rhythm Biventricular pacemaker detected Abnormal ECG Confirmed by KOBE CORRIGAN ([id number]), state editor TODD PEDERSEN ([id number]) on 06/27/2023 2:07:07 PM Referred By: Confirmed By:KOBE CORRIGAN
--- NOTE | 2023-06-21 13:28 | RAD_ITS ---
STUDY: X-RAY CHEST REASON FOR EXAM: Male, 73 years old. AMS TECHNIQUE: Single AP portable view of the chest. COMPARISON: Comparison is made with prior study dated April 23, 2023. FINDINGS: EKG electrodes are seen. The lungs are clear and expanded. There is no demonstrated pleural abnormality. There is moderate cardiac enlargement. A left-sided dual-chamber pacemaker is seen. Normal mediastinum and ashly. There is prominence of the pulmonary hilar arteries without peripheral pulmonary vascular congestion, suggesting pulmonary hypertension. There is atherosclerotic calcification of the aortic arch with tortuosity. Normal visualized thoracic spine. Normal visualized ribs, clavicles, and shoulders. There is no demonstrated abnormality of the visualized soft tissue structures of the upper abdomen. RAD/Chest 1 View (Portable) IMPRESSION: Cardiomegaly. Prominence of the central pulmonary arteries. The lungs are clear. Electronically Signed: Erik Sandoval MD at 14:39 EDT ,
[2023-06-21 14:01] LABS: Mucous, Urine 0 SEEN /hpf (<or=2+)
[2023-06-21 14:03] LABS: Color, Urine Yellow (Yellow); Glucose, Dipstick Normal (Normal); Ketone-Dipstick 5 mg/dl (Negative); Leukocyte Esterase-Dipstick 25 /ul (Negative); Nitrite-Dipstick Negative (Negative); Occult Blood-Urine Negative /ul (Negative); Protein-Dipstick 30 mg/dl (Negative); Urine Clarity Clear (Clear); Urine Urobilinogen 1 mg/dl (Normal)
[2023-06-21 14:04] LABS: Hematocrit 46.3 % (40-54); Mean Corp Hgb Conc 32.4 g/dL (32-36); Mean Corpuscular Hgb 32.3 pg (27.0-32.0); Mean Corpuscular Volume 99.6 fL (80-94); Mean Platelet Vol. 11.5 fl (6.2-12.0); Platelet Count 204 K/mm3 (150-450); RBC Distribution Width CV 14.4 % (11.6-14.6); RBC Distribution Width SD 50.8 fl (35.1-43.9); Red Blood Count 4.65 M/mm3 (4.6-6.2); White Blood Count 9.2 K/mm3 (4.4-11.0)
[2023-06-21 14:11] LABS: Urine Bilirubin Dipstick 1 mg/dL (Negative)
[2023-06-21 14:12] LABS: Bacteria RARE /hpf (None Seen); Red Blood Cells-Urine 0-5 SEEN /hpf (0-5); Squamous Epithelial Cells - UA 0-5 SEEN /hpf (0-5); White Blood Cells 0-5 SEEN /hpf (0-5)
[2023-06-21 14:24] LABS: BNP,B-Type NATRIURETIC PEPTIDE 43.4 pg/mL (0-100)
[2023-06-21 14:42] LABS: Anion Gap 8 (5-15); BUN 35 mg/dL (7-18); Calcium,Total 9.7 mg/dL (8.5-10.1); Chloride 107 mmol/L (98-107); Creatinine, Serum 2.33 mg/dL (0.70-1.30); EST Glomerular Filtration Rate 30 mL/min (>60); Est Glom Filt Rate - Afr Amer 36 mL/min (>60); Estimated Creatinine Clearance 29.08 ml/min; Glucose 116 mg/dL (74-106); Lipase < 10 U/L (13-75); Potassium 4.2 mmol/L (3.5-5.1); Sodium Level 142 mmol/L (136-145); Troponin-I HS 104 pg/mL (3.0-78.0)
--- NOTE | 2023-06-21 17:15 | PCM.HP.STD ---
HPI - General General Date of Admission: 06/21/23 HPI Narrative STEPH BAUMANN, is a 73 M who presents from the halfway with altered mental status as well as nausea and vomiting. Unfortunately he is not alert enough to provide any history so the history is obtained from the ER physician as well as the POA who is present at bedside. The POA is a friend of the patient's daughter who had and the patient has no other family. She states that he has been doing well at the halfway but it has transitioned into a long-term stay and last night he did not eat all of his food and then this morning he had some nausea and started to vomit without eating any breakfast. He has significant heart disease and is on multiple diuretics which is likely contributed to his VALENCIA. He does have chronic kidney disease but his baseline creatinine is around 1.6 and is currently at 2.33. Chest x-ray and brain CT in the ER were unremarkable as was UA. [facility] Medical History Acute and chronic respiratory failure with hypoxia Acute heart failure with reduced ejection fraction and diastolic dysfunction Adult failure to thrive Ambulates with cane Anticoagulant long-term use Ascites Asthma Atherosclerosis of coronary artery of [place] heart without angina pectoris Atrial fibrillation and flutter Back pain Benign brain tumor Cholelithiasis Chronic combined systolic and diastolic CHF (congestive heart failure) Chronic kidney disease (CKD) Cirrhosis of liver Cirrhosis of liver with ascites CPAP (continuous positive airway pressure) dependence Debility Diabetes Diabetes mellitus, type II Essential (primary) hypertension Former smoker History of atrial fibrillation History of CVA (cerebrovascular accident) History of ulceration Hyperlipidemia Injury of back Insulin dependent diabetes mellitus Longstanding persistent atrial fibrillation Non-rheumatic tricuspid valve insufficiency Nonischemic cardiomyopathy NSTEMI (non-ST elevated myocardial infarction) (10/09/19) ALBINO (obstructive sleep apnea) Parkinson's disease 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 Right inguinal hernia Right ventricular systolic dysfunction Secondary pulmonary arterial hypertension Seizure disorder Sleep apnea Stasis edema of both lower extremities Stroke/cerebrovascular accident Thyroid disease Weakness Wears glasses Home Medications insulin glargine 100 unit/mL (3 mL) subcutaneous pen 37 unit subcut QHS DIABETES 10/30/18 [History Last Taken 04/12/23] bicalutamide 50 mg tablet (Casodex) 50 mg PO DAILY prostate 12/10/21 [History Last Taken 04/13/23] multivitamin 1 tab PO DAILY supplement 02/19/22 [History Last Taken 04/13/23] baclofen 20 mg tablet 20 mg PO TID BACK PAIN #90 tabs 12/23/22 [Rx Last Taken 04/13/23] apixaban 5 mg tablet (Eliquis) 5 mg PO BID blood thinner 04/13/23 [History Last Taken 04/13/23] carvedilol 3.125 mg tablet 3.125 mg PO BID HEART 04/13/23 [History Last Taken 04/12/23] dextrose 40 % oral gel (Glucose Gel) 15 g PO Q15M PRN Hypoglycemia 04/23/23 [History Last Taken Unknown] tramadol 50 mg tablet 50 mg PO Q12H PRN LOWER BACK PAIN 04/23/23 [History Last Taken Unknown] acetazolamide 250 mg tablet 250 mg PO BID 06/08/23 [History Last Taken Unknown] carbidopa 25 mg-levodopa 100 mg tablet 1 tab PO TID PARKINSONS 06/08/23 [History Last Taken Unknown] docusate sodium 100 mg capsule 100 mg PO BID CONSTIPATION 06/08/23 [History Last Taken Unknown] lisinopril 20 mg tablet 20 mg PO DAILY BLOOD PRESSURE 06/08/23 [History Last Taken Unknown] potassium chloride 20 mEq tablet,extended release 20 meq PO DAILY SUPPLEMENT 06/08/23 [History Last Taken Unknown] aluminum-magnesium hydroxide 225 mg-200 mg/5 mL oral suspension 30 ml PO Q4H PRN 06/21/23 [History Last Taken Unknown] bisacodyl 10 mg rectal suppository 10 mg AK DAILY PRN constipation 06/21/23 [History Last Taken Unknown] bumetanide 2 mg tablet 2.5 mg PO DAILY FLUID 06/21/23 [History Last Taken Unknown] dulaglutide 1.5 mg/0.5 mL subcutaneous pen injector (Trulicity) 1.5 mg subcut FR DIABETES 06/21/23 [History Last Taken Unknown] lactulose 10 gram oral packet 10 g PO DAILY CONSTIPATION 06/21/23 [History Last Taken Unknown] lidocaine 5 % topical patch 1 patch topical DAILY RIGHT HIP PAIN 06/21/23 [History Last Taken Unknown] pantoprazole 40 mg tablet,delayed release 40 mg PO BID ACID REFLUX 06/21/23 [History Last Taken Unknown] sennosides 8.6 mg tablet (senna) 17.2 mg PO QHS CONSTIPATION 06/21/23 [History Last Taken Unknown] tramadol 50 mg tablet 50 mg PO Q6H PRN RIGHT HIP PAIN 06/21/23 [History Last Taken Unknown] Allergy/AdvReac Type Severity Reaction Status Date / Time acetaminophen AdvReac Other Verified 06/21/23 12:27 oxycodone AdvReac hallucinati Verified 06/21/23 12:27 ons Family History Daughter Heart disease valve replacement/chf Diabetes Mother Thyroid disorder Surgical History Biventricular ICD (implantable cardioverter-defibrillator) in place (10/12/19) H/O excision of tumor of brain meninges (2011) History of arthroplasty of right hip History of cardiac catheterization History of cardioversion (05/05/20) History of left heart catheterization (08/31/19) History of percutaneous coronary intervention (10/10/19) History of right and left heart catheterization History of right hip hemiarthroplasty History of tonsillectomy Social History household members: none Smoking Status: Former smoker how long ago did patient quit smokin years second hand exposure: No alcohol intake: never substance use type: does not use regla/orthodox: None seatbelt use: always ROS Review of Systems ROS Unobtainable: due to mental status Vital Signs Vital Signs Vital Signs: 06/21/23 12:22 06/21/23 12:32 06/21/23 12:26 Temperature 96.8 F L 97.6 F L Temperature Source Temporal Temporal Pulse Rate 72 70 Respiratory Rate 20 H 20 H Respiratory Pattern Normal Blood Pressure 113/73 107/65 Blood Pressure Mean 86 79 Pulse Ox 96 96 Oxygen Delivery Method Room Air Room Air 06/21/23 13:26 06/21/23 12:46 06/21/23 12:50 Temperature 97.8 F Temperature Source Temporal Pulse Rate 69 70 70 Respiratory Rate 21 H 12 13 Respiratory Pattern Blood Pressure 106/73 Blood Pressure Mean 84 Pulse Ox 97 97 92 Oxygen Delivery Method Room Air 06/21/23 13:00 06/21/23 13:10 06/21/23 13:20 Temperature Temperature Source Pulse Rate 72 70 73 Respiratory Rate 22 H 21 H 23 H Respiratory Pattern Blood Pressure 106/55 L Blood Pressure Mean 72 Pulse Ox 94 96 Oxygen Delivery Method 06/21/23 13:25 06/21/23 13:30 06/21/23 13:40 Temperature Temperature Source Pulse Rate 72 70 73 Respiratory Rate 26 H 11 L 29 H Respiratory Pattern Blood Pressure 106/73 Blood Pressure Mean 84 Pulse Ox 96 Oxygen Delivery Method 06/21/23 13:45 06/21/23 13:50 06/21/23 14:00 Temperature Temperature Source Pulse Rate 70 74 74 Respiratory Rate 18 18 18 Respiratory Pattern Blood Pressure 100/75 Blood Pressure Mean 81 Pulse Ox 98 99 Oxygen Delivery Method 06/21/23 14:10 06/21/23 15:00 Temperature Temperature Source Pulse Rate 70 70 Respiratory Rate 27 H 20 H Respiratory Pattern Blood Pressure 108/64 Blood Pressure Mean 78 Pulse Ox 98 96 Oxygen Delivery Method Room Air Weight Weight: 178 lb 2.136 oz Body Mass Index (BMI) 26.3 Physical Exam Narrative General: Sleepy, no apparent distress HEENT: Atraumatic, PERRLA, normocephalic Oral: Dry mucosa Neck: Supple, No JVD Lungs: Diminished, Normal air movement, No rhonchi, No wheeze, No rales Cardiovascular: Regular rate, Regular Rhythm, Normal S1, Normal S2, No murmurs Abdomen: Soft, Non Tender, Non-Distended, No Hepato-splenomegaly Extremities: No edema, Capillary Refill Less than 3 Seconds Skin: No rashes, No breakdown Musculoskeletal: No Tenderness to Palpation of Joints or Extremities Neurological: Cranial nerves II-XII grossly intact, Motor Exam 5/5 strength throughout, Sensory exam intact to light touch and pain Psych/Mental Status: Drowsy Results Lab / Micro Data 06/21/23 13:10 06/21/23 13:10 Labs: Laboratory Results - last 24 hr 06/21/23 13:10: WBC 9.2, RBC 4.65, Hgb 15.0, Hct 46.3, MCV 99.6 H, MCH 32.3 H, MCHC 32.4, RDW Std Deviation 50.8 H, RDW Coeff of Yonathan 14.4, Plt Count 204, MPV 11.5, Sodium 142, Potassium 4.2, Chloride 107, Carbon Dioxide 27.0, Anion Gap 8, BUN 35 H, Creatinine 2.33 H, Estim Creat Clear Calc 29.08, Est GFR (MDRD) Af Amer 36 L, Est GFR (MDRD) Non-Af 30 L, BUN/Creatinine Ratio 15.0, Glucose 116 H, Calcium 9.7, Ammonia 30.0, Troponin I High Sens 104 H, Lipase < 10 L 06/21/23 13:25: Urine Color Yellow, Urine Clarity Clear, Urine pH 6.0, Ur Specific [place] 1.020, Urine Protein 30 H, Urine Glucose (UA) Normal, Urine Ketones 5 H, Urine Occult Blood Negative, Urine Nitrite Negative, Urine Bilirubin 1 H, Urine Urobilinogen 1 H, Ur Leukocyte Esterase 25 H, Urine RBC 0-5 SEEN, Urine WBC 0-5 SEEN, Ur Squamous Epith Cells 0-5 SEEN, Urine Bacteria RARE, Urine Mucus 0 SEEN 06/21/23 13:57: B-Natriuretic Peptide 43.4 Micro: Microbiology 06/21/23 13:57 Nasal Secretion SARS-CoV-2 & FLU Antigen (Rapid) - Final Radiology Impression Brain CT 06/21/23 13:28 IMPRESSION: Chronic involutional changes of the brain. Stable chronic changes more prominent in the right cerebral hemisphere. Electronically Signed: Erik Sandoval MD at 14:41 EDT , Chest X-Ray 06/21/23 13:28 IMPRESSION: Cardiomegaly. Prominence of the central pulmonary arteries. The lungs are clear. Electronically Signed: Erik Sandoval MD at 14:39 EDT , Assessment & Plan Assessment/Plan (1) Acute alteration in mental status: (2) Nausea & vomiting: (3) Acute kidney injury: PLAN: Plan 1. VALENCIA secondary to dehydration and diuresis leading to metabolic encephalopathy ? It appears that he did not eat or drink very well yesterday or this morning and he had some large volume emesis ? He did receive some IV fluids in the ER will hold off on any more given his reduced EF as well as significant diastolic dysfunction and pulmonary hypertension ? We will also hold his nephrotoxic medications 2. A. fib status post AICD/HTN/HLD/CAD status post thrombectomy/nonischemic cardiomyopathy/pulmonary hypertension ? Blood pressure are stable, will hold any of his nephrotoxic blood pressure medications ? Continue with statin ? Continue with Eliqus[place] 3. IDDM 2 ? We will hold his home insulin given his lack of p.o. intake currently ? Accu-Cheks at bedtime, continue with the medium dose sliding scale ? We will make adjustments as necessary 4. GERD ? Stable ? Continue with PPI 5. Parkinson's ? We will continue with his Sinemet which was restarted by his neurologist 6. Prostate cancer ? He has completed radiation treatments DVT: Wilmar I had a 20-minute discussion with the POA on advance care planning options including hospice. She reiterated that he would like to be full code. Charges/Coding Visit Charges Inpatient E&M: 00361 Init Hosp L2 Procedures Hospitalists Procedures: 78931 Advncd Care Plan 30 Min
--- NOTE | 2023-06-21 17:39 | ED.RN ---
NURSE TO NURSE REPORT REGARDING PT ADMISSION CALLED TO DANIEL SIMPSON AT [place].
[2023-06-21] MEDS: APIXABAN 5 MG TABLET PO (20:46)
[2023-06-21] MEDS: Carvedilol 3.125 MG TABLET PO (20:46)
[2023-06-21] MEDS: Pantoprazole Sodium 40 MG Tablet PO (20:46)
[2023-06-21 21:43] LABS: Bedside Glucose 95 mg/dL (74-106)
[2023-06-22] MEDS: Insulin Lispro 100 UNIT/ML INSULN.PEN SC ×6 (01:15→20:45)
[2023-06-22 01:35] LABS: Bedside Glucose 184 mg/dL (74-106)
[2023-06-22 02:50] VITALS: BP 103/85; PULSE 70; RESP 20; TEMP 37; O2SAT 96
[2023-06-22 05:26] LABS: Bedside Glucose 164 mg/dL (74-106)
[2023-06-22 05:54] LABS: Absolute Lymphocyte Count 0.38 X10^3/uL (0.83-4.51); Absolute Neutrophil Count 15.4 X10^3/uL (2.0-7.7); Basophil# 0.05 X10^3/uL; Basophil% 0.3 % (0-1); Eosinophils% 0.6 % (0-5); Hematocrit 41.5 % (40-54); Hemoglobin 13.6 g/dL (13.0-16.5); Lymphocyte # 0.38 X10^3/ul (0.83-4.51); Lymphocyte % 2.3 % (19-41); Mean Corp Hgb Conc 32.8 g/dL (32-36); Mean Corpuscular Hgb 32.7 pg (27.0-32.0); Mean Corpuscular Volume 99.8 fL (80-94); Mean Platelet Vol. 11.3 fl (6.2-12.0); Monocyte# 0.68 X10^3/uL; Monocyte% 4.1 % (0-10); NRBC Flagged by Analyzer 0 % (0-5); Neutrophil # 15.38 X10^3/uL (2.7-7.7); POSITIVE DIFFERENTIAL YES; POSITIVE MORPHOLOGY YES; Platelet Count 154 K/mm3 (150-450); RBC Distribution Width CV 14.2 % (11.6-14.6); Red Blood Count 4.16 M/mm3 (4.6-6.2); White Blood Count 16.7 K/mm3 (4.4-11.0)
[2023-06-22 05:57] LABS: Differential Indicated SCAN CRITERIA MET
[2023-06-22] MEDS: 0.9% Saline Lock 10 ML Syringe IV (06:08)
[2023-06-22] MEDS: Carbidopa/Levodopa 25/100 Tablet PO ×3 (06:08→16:08)
[2023-06-22 06:15] LABS: ALB/GLOB Ratio 0.7 RATIO (0.9-2.4); AST(SGOT) 17 U/L (15-37); Alanine Aminotransfer ALT/SGPT 20 U/L (16-61); Albumin, Serum 3.1 g/dL (3.2-5.0); Alkaline Phosphatase 123 U/L (45-117); Anion Gap 5 (5-15); BUN 40 mg/dL (7-18); Calcium,Total 9.3 mg/dL (8.5-10.1); Chloride 106 mmol/L (98-107); Creatinine, Serum 1.82 mg/dL (0.70-1.30); EST Glomerular Filtration Rate 39 mL/min (>60); Est Glom Filt Rate - Afr Amer 48 mL/min (>60); Estimated Creatinine Clearance 37.23 ml/min; Globulin 4.3 g/dL (2.2-4.2); Glucose 144 mg/dL (74-106); Potassium 3.9 mmol/L (3.5-5.1); Protein, Total 7.4 g/dL (6.4-8.2); Sodium Level 138 mmol/L (136-145)
[2023-06-22 06:23] LABS: Differential Comment SCANNED
--- NOTE | 2023-06-22 07:54 | PN.HOSP_ITS ---
Reason for Visit Reason for Visit: Mental status/nausea/vomiting Subjective Subjective Mr. Prince is a 73-year-old -[place] male who presented to the em ergency department at [facility] from the nursing facility with altered mental status as well as nausea and vomiting. He was quite obtunded on presentation and lethargic so POA gave most of his history. The POA is a friend of the patient's daughter who previously and the patient has no other family. She states that he had been doing fairly well at the detention but transitioned into a long-term stay and last night he did not eat any of his food and then on the morning of admission he had some nausea and started to vomit. He was not able to eat breakfast. On presentation he had a temperature of 96.8, pulse rate was 72, blood pressure was 113/73, respiratory was 20 and oxygen saturations were 96% on room air. His CBC was overall unremarkable with a normal white count however differential was not obtained. His chemistry panel showed significant VALENCIA with a serum BUN of 35 and a creatinine of 2.33 (baseline serum creatinine is variable but seems to run between 1.2 on 1.5. He had a creatinine checked on 06/20/2023 and it was 1.30. He has a known cardiomyopathy with an EF of 25% and stage III diastolic dysfunction along with global right ventricular dysfunction and severe left atrial enlargement along with elevated right ventricular systolic pressures at 63 mmHg. This was noted on his last echo from 04/25/2023. His UA was not consistent with infection. His chest x-ray was unremarkable and he remains on room air. Today his white count is up and he has a left shift. Renal function is improving. No further nausea or vomiting overnight. Patient is awake and alert and answers questions intermittently however he is not consistent with this. He is aware he is in [place] and was able to tell me was June 2023 however he would not answer any further questions. He did complain of hip pain and we will get him a lidocaine patch for this. Did say his pain was chronic Objective Data Objective Data Vital Signs: Vital Signs Temp Pulse Resp BP Pulse Ox O2 Del Method O2 Flow Rate 98.6 F 70 20 H 103/85 H 96 Room Air 3 06/22/23 02:50 06/22/23 02:50 06/22/23 02:50 06/22/23 02:50 06/22/23 02:50 06/22/23 02:50 06/22/23 02:50 Oxygen Flow Rate (L/min) 3 Oxygen Delivery Method Room Air Weight: 77 kg Body Mass Index (BMI) 25.0 Intake & Output: Intake and Output for Last 24 Hours 06/20/23 06/21/23 06/22/23 23:59 23:59 23:59 Intake Total 0 / 200 200 / 200 Output Total 0 / 0 100 / 100 Balance 0 / 200 100 / 100 Lab / Micro Data 06/22/23 05:12 06/22/23 05:12 Labs: Laboratory Results - last 24 hr 06/21/23 13:10: WBC 9.2, RBC 4.65, Hgb 15.0, Hct 46.3, MCV 99.6 H, MCH 32.3 H, MCHC 32.4, RDW Std Deviation 50.8 H, RDW Coeff of Yonathan 14.4, Plt Count 204, MPV 11.5, Sodium 142, Potassium 4.2, Chloride 107, Carbon Dioxide 27.0, Anion Gap 8, BUN 35 H, Creatinine 2.33 H, Estim Creat Clear Calc 29.08, Est GFR (MDRD) Af Amer 36 L, Est GFR (MDRD) Non-Af 30 L, BUN/Creatinine Ratio 15.0, Glucose 116 H, Calcium 9.7, Ammonia 30.0, Troponin I High Sens 104 H, Lipase < 10 L 06/21/23 13:25: Urine Color Yellow, Urine Clarity Clear, Urine pH 6.0, Ur Specific [place] 1.020, Urine Protein 30 H, Urine Glucose (UA) Normal, Urine Ketones 5 H, Urine Occult Blood Negative, Urine Nitrite Negative, Urine Bilirubin 1 H, Urine Urobilinogen 1 H, Ur Leukocyte Esterase 25 H, Urine RBC 0-5 SEEN, Urine WBC 0-5 SEEN, Ur Squamous Epith Cells 0-5 SEEN, Urine Bacteria RARE, Urine Mucus 0 SEEN 06/21/23 13:57: B-Natriuretic Peptide 43.4 06/21/23 20:42: POC Glucose 95 06/22/23 01:12: POC Glucose 184 H 06/22/23 05:05: POC Glucose 164 H 06/22/23 05:12: WBC 16.7 H, RBC 4.16 L, Hgb 13.6, Hct 41.5, MCV 99.8 H, MCH 32.7 H, MCHC 32.8, RDW Std Deviation 51.0 H, RDW Coeff of Yonathan 14.2, Plt Count 154, MPV 11.3, Immature Gran % (Auto) 0.700, Neut % (Auto) 92.0 H, Lymph % (Auto) 2.3 L, Jack % (Auto) 4.1, Eos % (Auto) 0.6, Baso % (Auto) 0.3, Absolute Neuts (auto) 15.4 H, Absolute Lymphs (auto) 0.38 L, Nucleated RBC % 0, Differential Comment SCANNED, Sodium 138, Potassium 3.9, Chloride 106, Carbon Dioxide 27.0, Anion Gap 5, BUN 40 H, Creatinine 1.82 H, Estim Creat Clear Calc 37.23, Est GFR (MDRD) Af Amer 48 L, Est GFR (MDRD) Non-Af 39 L, BUN/Creatinine Ratio 22.0 H, Glucose 144 H, Calcium 9.3, Total Bilirubin 1.60 H, AST 17, ALT 20, Alkaline Phosphatase 123 H, Total Protein 7.4, Albumin 3.1 L, Globulin 4.3 H, Albumin/Globulin Ratio 0.7 L Micro: Microbiology 06/21/23 13:57 Nasal Secretion SARS-CoV-2 & FLU Antigen (Rapid) - Final Radiography Diagnostic Testing: Radiology Impression Brain CT 06/21/23 13:28 IMPRESSION: Chronic involutional changes of the brain. Stable chronic changes more prominent in the right cerebral hemisphere. Electronically Signed: Erik Sandoval MD at 14:41 EDT , Chest X-Ray 06/21/23 13:28 IMPRESSION: Cardiomegaly. Prominence of the central pulmonary arteries. The lungs are clear. Electronically Signed: Erik Sandoval MD at 14:39 EDT , Physical Exam Const alert; Negative for oriented x3 Constitutional Narrative: Older, -Cymra[place], male, sitting up in bed appears comfortable, nontoxic, oriented to self, was able to say he was in [place] and that was June 2023 but would not fully participate in questions, appeared somewhat uncomfortable, nontoxic HEENT head/scalp atraumatic and moist oral mucous membranes HEENT Narrative: Mallampati 1, no thrush Head and Scalp: normocephalic Resp normal respiratory effort, no retractions, no use of accessory muscles and clear to auscultation bilaterally Auscultation: Negative for rales, rhonchi or wheezes Cardio regular rate, S1 normal heart sound, S2 normal heart sound, no murmurs, no rub, no gallops and no clicks; Negative for regular rhythm GI normal to inspection, nondistended, normoactive bowel sounds, soft to palpation and non-tender Extremity no clubbing, cyanosis or edema Extremity Narrative: Pedal pulses are 2+ Neuro oriented x3, moves all extremities and no focal motor deficits Neuro Narrative: Pain with movement of his right hip Psych cooperative; Negative for thought process normal Psych Narrative: Affect is extremely flat, response time is slow Attitude: bizarre Speech: delayed Assessment & Plan Assessment/Plan (1) Nausea & vomiting: (2) Toxic metabolic encephalopathy: (3) Elevated troponin: (4) Acute dehydration: (5) VALENCIA (acute kidney injury): (6) Leukocytosis: (7) Hyperbilirubinemia: PLAN: Plan Nausea and vomiting -No further episodes -Continue to monitor -As needed antiemetics VALENCIA on CKD stage IIIa -Baseline serum creatinine appears to be between 1.3 and 1.5 and measured to be 1.3 the day prior to presentation -Creatinine was 2.33 at the time of admission and now down to 1.82 today -Continue to hold diuretics(acetazolamide and Bumex) -Hold lisinopril -Avoid nephrotoxins as able -Continue gentle hydration at 75 cc an hour for another liter -Proceeding carefully with hydration due to poor EF at 25% -Repeat BMP in a.m. Leukocytosis -Left shift is present -Chest x-ray is unremarkable -UA is not consistent with infection -COVID testing was negative -Recent C. difficile on 06/14/2023 was unremarkable -Likely reactive due to the above and will repeat CBC in a.m. -Hold on empiric antibiotics at this time Toxic/metabolic encephalopathy -More alert today however still seems to be somewhat confused and response times are delayed Right hip pain -Previous arthroplasty -Check ESR/CRP -Check plain films -Continue Tylenol -Add lidocaine patch Hyperbilirubinemia -Bilirubin is not typically elevated and 1.6 today -May be reactive from the above as LFTs are normal -Alk phos is slightly elevated at 123 -If having right upper quadrant pain will consider ultrasound -Patient likely not a surgical candidate if there is any issue and would likely need a PERC drain to decompress the gallbladder Troponin elevation -This appears to be chronic and is actually less than it has been previously -Patient with extremely poor ejection fraction -No chest pain present -No need for further work-up at this time History of nonischemic cardiomyopathy -History of biventricular ICD/pacer -Currently holding diuretics due to dehydration -We will reinitiate when medically appropriate CAD/HTN/persistent atrial fibrillation/WHO group 2 pulmonary hypertension -Continue apixaban 5 mg p.o. twice daily -Continue carvedilol 3.125 mg daily -Hold lisinopril -Monitor on telemetry -Continue to monitor blood pressure with dehydration -Diuretics on hold due to VALENCIA History of cirrhosis -Continued outpatient follow-up -Continue lactulose daily Parkinson's disease -Continue home carbidopa/levodopa GERD -Continue home PPI DM-2 -Hold home Trulicity -Hold home glargine until p.o. intake is more established -SSI -Accu-Cheks as ordered History of prostate cancer -Has completed radiation treatments Chronic low back pain -Continue home pain medication regimen once mental status is improved DVT prophylaxis -Continue apixaban CODE STATUS -20-minute discussion with the POA upon admission per admitting physician documentation and CODE STATUS remains full. Will place order Charges/Coding Visit Charges Inpatient E&M: 52465 Subs Hosp L2
[2023-06-22] MEDS: 0.9% Normal Saline 1,000 ML 75 ML IV (08:30)
[2023-06-22 08:38] VITALS: BP 98/78; PULSE 70; RESP 14; TEMP 36.4; O2SAT 97
[2023-06-22] MEDS: traMADol 50 MG Tablet PO ×3 (08:45→22:50)
[2023-06-22 11:00] VITALS: BP 99/60
[2023-06-22] MEDS: APIXABAN 5 MG TABLET PO ×2 (11:01→20:45)
[2023-06-22] MEDS: Pantoprazole Sodium 40 MG Tablet PO ×2 (11:01→20:46)
[2023-06-22 11:25] LABS: Bedside Glucose 184 mg/dL (74-106)
[2023-06-22 13:53] LABS: Erythrocyte Sedimentation Rate 24 mm/hr (0-20)
--- NOTE | 2023-06-22 14:09 | CASEMGMT ---
Discharge Planning Per [facility], patient was being skilled prior to admission. No precert will be needed. SW updated. Kayleigh Valencia, Discharge Planning Asst.
[2023-06-22] MEDS: Lidocaine 5% Patch 1 PATCH TOPICAL (14:30)
[2023-06-22 14:40] VITALS: BP 113/62; PULSE 68; RESP 14; TEMP 37.1; O2SAT 98
[2023-06-22 14:52] LABS: Bedside Glucose 185 mg/dL (74-106)
--- NOTE | 2023-06-22 15:45 | RAD_ITS ---
INDICATION: pAIN EXAMINATION/TECHNIQUE: X-RAY - XR Right Hip Unilateral with Pelvis when performed; 3 Views COMPARISON: FINDINGS: PELVIC BONES: No displaced fracture, destructive or sclerotic lesions. Note that overlapping bowel shadows may however obscure fine detail. Sacroiliac joints are unremarkable. No widening of the pubic symphysis. HIPS: There is a right hip prosthesis in place with no imaging evidence of loosening. No displaced fracture seen in this frontal view. SOFT TISSUES: No soft tissue swelling or gas. Vascular calcifications. RAD/HIP, UNI W/ Pelvis 2-3 Views IMPRESSION: No evidence of displaced pelvic or hip fracture. Electronically Signed: Segundo George DO at 16:54 EDT Reading Location ID and State: [facility] / [place] Tel [phone], Service support ,
[2023-06-22 18:29] LABS: Bedside Glucose 170 mg/dL (74-106)
[2023-06-22 20:38] VITALS: BP 111/73; PULSE 70; RESP 18; TEMP 36.8; O2SAT 96
[2023-06-22] MEDS: Carvedilol 3.125 MG TABLET PO (20:45)
[2023-06-22 21:15] LABS: Bedside Glucose 167 mg/dL (74-106)
[2023-06-23] MEDS: Insulin Lispro 100 UNIT/ML INSULN.PEN SC ×5 (01:57→22:21)
[2023-06-23 02:19] LABS: Bedside Glucose 177 mg/dL (74-106)
[2023-06-23 02:38] VITALS: BP 112/65; PULSE 70; RESP 16; TEMP 36.8; O2SAT 95
[2023-06-23 06:06] LABS: Absolute Lymphocyte Count 0.47 X10^3/uL (0.83-4.51); Absolute Neutrophil Count 8.3 X10^3/uL (2.0-7.7); Basophil# 0.03 X10^3/uL; Basophil% 0.3 % (0-1); Eosinophil# 0.45 X10^3/uL; Eosinophils% 4.5 % (0-5); Hematocrit 38.3 % (40-54); Hemoglobin 12.3 g/dL (13.0-16.5); Lymphocyte # 0.47 X10^3/ul (0.83-4.51); Lymphocyte % 4.7 % (19-41); Mean Corp Hgb Conc 32.1 g/dL (32-36); Mean Corpuscular Volume 99.7 fL (80-94); Mean Platelet Vol. 11.9 fl (6.2-12.0); Monocyte# 0.58 X10^3/uL; Monocyte% 5.8 % (0-10); NRBC Flagged by Analyzer 0 % (0-5); Neutrophil # 8.33 X10^3/uL (2.7-7.7); POSITIVE DIFFERENTIAL YES; Platelet Count 149 K/mm3 (150-450); RBC Distribution Width CV 13.9 % (11.6-14.6); RBC Distribution Width SD 50.3 fl (35.1-43.9); Red Blood Count 3.84 M/mm3 (4.6-6.2); White Blood Count 9.9 K/mm3 (4.4-11.0)
[2023-06-23 06:07] LABS: Differential Indicated SCAN CRITERIA MET
[2023-06-23] MEDS: Carbidopa/Levodopa 25/100 Tablet PO ×3 (06:20→18:31)
[2023-06-23 06:35] LABS: Differential Comment SCANNED
[2023-06-23 06:42] LABS: Bedside Glucose 164 mg/dL (74-106)
[2023-06-23 07:50] LABS: Anion Gap 6 (5-15); BUN 35 mg/dL (7-18); BUN/Creat Ratio 24.3 RATIO (10-20); Chloride 105 mmol/L (98-107); Creatinine, Serum 1.44 mg/dL (0.70-1.30); EST Glomerular Filtration Rate 51 mL/min (>60); Est Glom Filt Rate - Afr Amer 62 mL/min (>60); Estimated Creatinine Clearance 47.05 ml/min; Glucose 161 mg/dL (74-106); Sodium Level 136 mmol/L (136-145)
--- NOTE | 2023-06-23 07:52 | PN.HOSP_ITS ---
Reason for Visit Reason for Visit: Diagnoses Elevated white blood cell count, unspecified (06/21/23) Other disorders of bilirubin metabolism (06/21/23) Dehydration (06/21/23) Other toxic encephalopathy (06/21/23) Acute kidney failure, unspecified (06/21/23) Nausea with vomiting, unspecified (06/21/23) Altered mental status, unspecified (06/21/23) Other specified abnormalities of plasma proteins (06/21/23) Objective Data Objective Data Vital Signs: Vital Signs Temp Pulse Resp BP Pulse Ox O2 Del Method O2 Flow Rate 98.3 F 70 16 112/65 95 Room Air 3 06/23/23 02:38 06/23/23 02:38 06/23/23 02:38 06/23/23 02:38 06/23/23 02:38 06/23/23 03:40 06/22/23 02:50 Oxygen Flow Rate (L/min) 3 Oxygen Delivery Method Room Air Weight: 169 lb 12.095 oz Body Mass Index (BMI) 25.0 Intake & Output: Intake and Output for Last 24 Hours 06/21/23 06/22/23 06/23/23 23:59 23:59 23:59 Intake Total 0 / 200 2040 / 2040 80 / 80 Output Total 0 / 0 800 / 800 500 / 500 Balance 0 / 200 1240 / 1240 -420 / -420 Lab / Micro Data 06/23/23 05:13 06/23/23 05:13 Labs: Laboratory Results - last 24 hr 06/22/23 05:12: ESR 24 H, C-React Prot Ext Range 76.00 H 06/22/23 10:57: POC Glucose 184 H 06/22/23 14:28: POC Glucose 185 H 06/22/23 18:05: POC Glucose 170 H 06/22/23 20:43: POC Glucose 167 H 06/23/23 01:56: POC Glucose 177 H 06/23/23 05:13: WBC 9.9, RBC 3.84 L, Hgb 12.3 L, Hct 38.3 L, MCV 99.7 H, MCH 32.0, MCHC 32.1, RDW Std Deviation 50.3 H, RDW Coeff of Yonathan 13.9, Plt Count 149 L, MPV 11.9, Immature Gran % (Auto) 0.700, Neut % (Auto) 84.0 H, Lymph % (Auto) 4.7 L, Pender % (Auto) 5.8, Eos % (Auto) 4.5, Baso % (Auto) 0.3, Absolute Neuts (auto) 8.3 H, Absolute Lymphs (auto) 0.47 L, Nucleated RBC % 0, Differential Comment SCANNED, Sodium 136, Potassium 4.0, Chloride 105, Carbon Dioxide 25.0, Anion Gap 6, BUN 35 H, Creatinine 1.44 H, Estim Creat Clear Calc 47.05, Est GFR (MDRD) Af Amer 62, Est GFR (MDRD) Non-Af 51 L, BUN/Creatinine Ratio 24.3 H, Glucose 161 H, Calcium 9.0 06/23/23 06:19: POC Glucose 164 H Micro: Microbiology 06/21/23 13:57 Nasal Secretion SARS-CoV-2 & FLU Antigen (Rapid) - Final Radiography Diagnostic Testing: Radiology Impression Hip/Pelvis X-Ray 06/22/23 15:45 IMPRESSION: No evidence of displaced pelvic or hip fracture. Electronically Signed: Segundo George DO at 16:54 EDT Reading Location ID and State: [facility] / [place] Tel [phone], Service support , Physical Exam Narrative Seen and examined. Patient is confused and disoriented to time. He is awake and answers simple questions. Did not tell correct age but was able to tell correctly. Complain of right hip pain Physical exam General: Awake, oriented x2, Cooperative HEENT: Atraumatic, PERRLA, EOMI, Normocephalic Oral: Oral mucosa dry. No Gingival or Mucosal Lesions/ Ulcerations Neck: Supple, No JVD, Negative Carotid Bruits Lungs: Air entry diminished in bilateral lung bases. No crepitation/rhonchi Cardiovascular: Regular rate, Regular Rhythm, Normal S1, Normal S2, systolic murmurs Abdomen: Bowel Sounds Present, Soft, Non Tender, Non-Distended : No renal angle tenderness. No suprapubic tenderness. Extremities: No edema, Capillary Refill Less than 3 Seconds Skin: No rashes, No breakdown Musculoskeletal: No acute tenderness to Palpation of Joints or Extremities including right hip or pelvis. ROM restricted on right hip. Status post right hip prosthesis Neurological: Cranial nerves II-XII grossly intact, DTR 2+/4. No acute focal neurological deficit. Psych/Mental Status: Flat affect Assessment & Plan Assessment/Plan (1) Nausea & vomiting: (2) Toxic metabolic encephalopathy: (3) Elevated troponin: (4) Acute dehydration: (5) VALENCIA (acute kidney injury): (6) Leukocytosis: (7) Hyperbilirubinemia: PLAN: Plan Nausea and vomiting -No further episodes -Continue to monitor -As needed antiemetics Resolved. VALENCIA on CKD stage IIIa -Baseline serum creatinine appears to be between 1.3 and 1.5 and measured to be 1.3 the day prior to presentation -Creatinine was 2.33 at the time of admission and now down to 1.82 today -Continue to hold diuretics(acetazolamide and Bumex) -Hold lisinopril -Avoid nephrotoxins as able -Continue gentle hydration at 75 cc an hour for another liter -Proceeding carefully with hydration due to poor EF at 25% -Repeat BMP shows improvement in creatinine 1.44 from 2.33. Looks patient VALENCIA has resolved. Creatinine at baseline Leukocytosis -Left shift is present -Chest x-ray is unremarkable -UA is not consistent with infection -COVID testing was negative -Recent C. difficile on 06/14/2023 was unremarkable -Likely reactive due to the above and will repeat CBC in a.m. -Hold on empiric antibiotics at this time Toxic/metabolic encephalopathy -More alert today however still seems to be somewhat confused and response times are delayed Right hip pain -Hip and pelvis x-ray reviewed. Nondisplaced fracture destructive or sclerotic lesion. Right hip prosthesis with no imaging evidence of loosening. ESR 24. CRP 76. -Continue Tylenol -Add lidocaine patch Ortho surgery Dr. Jain consulted. Hyperbilirubinemia -Bilirubin is not typically elevated and 1.6 today -May be reactive from the above as LFTs are normal -Alk phos is slightly elevated at 123 -If having right upper quadrant pain will consider ultrasound -Patient likely not a surgical candidate if there is any issue and would l ikely need a PERC drain to decompress the gallbladder Troponin elevation -This appears to be chronic and is actually less than it has been previously -Patient with extremely poor ejection fraction -No chest pain present -No need for further work-up at this time History of nonischemic cardiomyopathy -History of biventricular ICD/pacer -Currently holding diuretics due to dehydration -We will reinitiate when medically appropriate CAD/HTN/persistent atrial fibrillation/WHO group 2 pulmonary hypertension -Continue apixaban 5 mg p.o. twice daily -Continue carvedilol 3.125 mg daily -Hold lisinopril -Monitor on telemetry -Continue to monitor blood pressure with dehydration -Diuretics on hold due to VALENCIA History of cirrhosis -Continued outpatient follow-up -Continue lactulose daily Parkinson's disease -Continue home carbidopa/levodopa GERD -Continue home PPI DM-2 -Hold home Trulicity -Hold home glargine until p.o. intake is more established -SSI -Accu-Cheks as ordered History of prostate cancer -Has completed radiation treatments Chronic low back pain -Continue home pain medication regimen once mental status is improved DVT prophylaxis -Continue apixaban CODE STATUS Microbiology Past 72 Hours 06/21/23 13:57 Nasal Secretion SARS-CoV-2 & FLU Antigen (Rapid) - Final Laboratory Results 06/22/23 05:12: ESR 24 H, C-React Prot Ext Range 76.00 H 06/22/23 10:57: POC Glucose 184 H 06/22/23 14:28: POC Glucose 185 H 06/22/23 18:05: POC Glucose 170 H 06/22/23 20:43: POC Glucose 167 H 06/23/23 01:56: POC Glucose 177 H 06/23/23 05:13: WBC 9.9, RBC 3.84 L, Hgb 12.3 L, Hct 38.3 L, MCV 99.7 H, MCH 32.0, MCHC 32.1, RDW Std Deviation 50.3 H, RDW Coeff of Yonathan 13.9, Plt Count 149 L, MPV 11.9, Immature Gran % (Auto) 0.700, Neut % (Auto) 84.0 H, Lymph % (Auto) 4.7 L, Pender % (Auto) 5.8, Eos % (Auto) 4.5, Baso % (Auto) 0.3, Absolute Neuts (auto) 8.3 H, Absolute Lymphs (auto) 0.47 L, Nucleated RBC % 0, Differential Comment SCANNED, Sodium 136, Potassium 4.0, Chloride 105, Carbon Dioxide 25.0, Anion Gap 6, BUN 35 H, Creatinine 1.44 H, Estim Creat Clear Calc 47.05, Est GFR (MDRD) Af Amer 62, Est GFR (MDRD) Non-Af 51 L, BUN/Creatinine Ratio 24.3 H, Glucose 161 H, Calcium 9.0 06/23/23 06:19: POC Glucose 164 H Charges/Coding Visit Charges Inpatient E&M: 16269 Subs Hosp L2
[2023-06-23 08:38] VITALS: BP 134/79; PULSE 71; RESP 18; TEMP 36.1; O2SAT 99
[2023-06-23 09:33] LABS: AST(SGOT) 31 U/L (15-37); Alanine Aminotransfer ALT/SGPT 28 U/L (16-61); Alkaline Phosphatase 125 U/L (45-117); Bilirubin, Direct 0.42 mg/dL (0.00-0.30); Globulin 4.1 g/dL (2.2-4.2); Magnesium 2.2 mg/dL (1.6-2.6); Phosphorus 2.3 mg/dL (2.5-4.9); Protein, Total 7.1 g/dL (6.4-8.2)
[2023-06-23] MEDS: APIXABAN 5 MG TABLET PO ×2 (10:20→22:10)
[2023-06-23] MEDS: Lactulose 20 GM/30 ML UDC PO ×3 (10:20→22:11)
[2023-06-23] MEDS: rifAXIMin 550 MG Tablet PO ×2 (10:20→22:10)
[2023-06-23] MEDS: Lidocaine 5% Patch 1 PATCH TOPICAL (10:21)
[2023-06-23] MEDS: Carvedilol 3.125 MG TABLET PO ×2 (10:21→22:11)
[2023-06-23] MEDS: Pantoprazole Sodium 40 MG Tablet PO ×2 (10:21→22:11)
[2023-06-23] MEDS: 0.9% Saline Lock 10 ML Syringe IV (10:22)
[2023-06-23 11:04] LABS: Bedside Glucose 202 mg/dL (74-106)
--- NOTE | 2023-06-23 13:47 | CON.PCM.OR_ITS ---
HPI Consult Data Date of Consult: 06/23/23 HPI Narrative HPI Narrative: STEPH BAUMANN, is a 73 M who presents with right hip pain after a ground- level fall. Per the patient they were walking at home tripped and fell is having pain on the lateral side of the hip. Patient states that they had their hip fixed in November of this year at [facility] although there is no notes to this effect. Unsure who the surgeon was. [facility] Medical History (Updated 06/23/23 @ 13:50 by Chandana Jain MD) Acute and chronic respiratory failure with hypoxia Acute heart failure with reduced ejection fraction and diastolic dysfunction Adult failure to thrive Ambulates with cane Anticoagulant long-term use Anxiety Ascites Asthma Atherosclerosis of coronary artery of [place] heart without angina pectoris Atrial fibrillation and flutter Back pain Benign brain tumor Cardiac cirrhosis Cholelithiasis Chronic combined systolic and diastolic CHF (congestive heart failure) Chronic kidney disease (CKD) Chronic kidney disease (CKD), stage III (moderate) Cirrhosis of liver Cirrhosis of liver with ascites Congestive heart failure (CHF) CPAP (continuous positive airway pressure) dependence Debility Diabetes Diabetes mellitus, type II Essential (primary) hypertension Former smoker History of atrial fibrillation History of CVA (cerebrovascular accident) History of ulceration Hyperlipidemia Hypertension ICD (implantable cardioverter-defibrillator) in place Injury of back Insulin dependent diabetes mellitus Kidney disease Kidney stones Longstanding persistent atrial fibrillation Myocardial infarct Non-rheumatic tricuspid valve insufficiency Nonischemic cardiomyopathy NSTEMI (non-ST elevated myocardial infarction) (10/09/19) ALBINO (obstructive sleep apnea) Pacemaker Parkinson's disease Parkinson's disease 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 Right hip pain Right inguinal hernia Right ventricular systolic dysfunction Secondary pulmonary arterial hypertension Seizure disorder Seizures Sleep apnea Stasis edema of both lower extremities Stroke/cerebrovascular accident Thyroid disease Weakness Wears glasses Home Medications insulin glargine 100 unit/mL (3 mL) subcutaneous pen 37 unit subcut QHS DIABETES 10/30/18 [History Last Taken 04/12/23] bicalutamide 50 mg tablet (Casodex) 50 mg PO DAILY prostate 12/10/21 [History Last Taken 04/13/23] multivitamin 1 tab PO DAILY supplement 02/19/22 [History Last Taken 04/13/23] baclofen 20 mg tablet 20 mg PO TID BACK PAIN #90 tabs 12/23/22 [Rx Last Taken 04/13/23] apixaban 5 mg tablet (Eliquis) 5 mg PO BID blood thinner 04/13/23 [History Last Taken 04/13/23] carvedilol 3.125 mg tablet 3.125 mg PO BID HEART 04/13/23 [History Last Taken 04/12/23] dextrose 40 % oral gel (Glucose Gel) 15 g PO Q15M PRN Hypoglycemia 04/23/23 [History Last Taken Unknown] tramadol 50 mg tablet 50 mg PO Q12H PRN LOWER BACK PAIN 04/23/23 [History Last Taken Unknown] acetazolamide 250 mg tablet 250 mg PO BID 06/08/23 [History Last Taken Unknown] carbidopa 25 mg-levodopa 100 mg tablet 1 tab PO TID PARKINSONS 06/08/23 [History Last Taken Unknown] docusate sodium 100 mg capsule 100 mg PO BID CONSTIPATION 06/08/23 [History Last Taken Unknown] lisinopril 20 mg tablet 20 mg PO DAILY BLOOD PRESSURE 06/08/23 [History Last Taken Unknown] potassium chloride 20 mEq tablet,extended release 20 meq PO DAILY SUPPLEMENT 06/08/23 [History Last Taken Unknown] aluminum-magnesium hydroxide 225 mg-200 mg/5 mL oral suspension 30 ml PO Q4H PRN 06/21/23 [History Last Taken Unknown] bisacodyl 10 mg rectal suppository 10 mg [place] DAILY PRN constipation 06/21/23 [History Last Taken Unknown] bumetanide 2 mg tablet 2.5 mg PO DAILY FLUID 06/21/23 [History Last Taken Unknown] dulaglutide 1.5 mg/0.5 mL subcutaneous pen injector (Trulicity) 1.5 mg subcut FR DIABETES 06/21/23 [History Last Taken Unknown] lactulose 10 gram oral packet 10 g PO DAILY CONSTIPATION 06/21/23 [History Last Taken Unknown] lidocaine 5 % topical patch 1 patch topical DAILY RIGHT HIP PAIN 06/21/23 [History Last Taken Unknown] pantoprazole 40 mg tablet,delayed release 40 mg PO BID ACID REFLUX 06/21/23 [History Last Taken Unknown] sennosides 8.6 mg tablet (senna) 17.2 mg PO QHS CONSTIPATION 06/21/23 [History Last Taken Unknown] tramadol 50 mg tablet 50 mg PO Q6H PRN RIGHT HIP PAIN 06/21/23 [History Last Taken Unknown] Allergy/AdvReac Type Severity Reaction Status Date / Time acetaminophen AdvReac Other Verified 06/21/23 18:03 oxycodone AdvReac hallucinati Verified 06/21/23 12:27 ons Family History Daughter Heart disease valve replacement/chf Diabetes Mother Thyroid disorder Surgical History Biventricular ICD (implantable cardioverter-defibrillator) in place (10/12/19) H/O excision of tumor of brain meninges (2011) History of arthroplasty of right hip History of cardiac catheterization History of cardioversion (05/05/20) History of left heart catheterization (08/31/19) History of percutaneous coronary intervention (10/10/19) History of right and left heart catheterization History of right hip hemiarthroplasty History of tonsillectomy Social History household members: none Smoking Status: Former smoker how long ago did patient quit smokin years second hand exposure: No alcohol intake: never substance use type: does not use regla/sabianism: None seatbelt use: always Vital Signs Vital Signs Vital Signs: 06/22/23 14:40 06/22/23 20:19 06/22/23 20:38 Temperature 98.7 F 98.2 F Temperature Source Temporal Oral Pulse Rate 68 70 Pulse Strength Respiratory Rate 14 18 Respiratory Effort Normal Non-Labored Respiratory Depth Normal Respiratory Pattern Normal Blood Pressure 113/62 111/73 Blood Pressure Mean 79 85 Blood Pressure Source Monitor Monitor Blood Pressure Position Semi-Fowlers Semi-Fowlers Blood Pressure Location Right Arm Right Arm Pulse Ox 98 96 Oxygen Delivery Method Room Air Room Air Room Air 06/22/23 22:00 06/23/23 02:38 06/23/23 03:40 Temperature 98.3 F Temperature Source Oral Pulse Rate 70 Pulse Strength Weak (1+) Respiratory Rate 16 Respiratory Effort Normal Non-Labored Respiratory Depth Normal Respiratory Pattern Normal Blood Pressure 112/65 Blood Pressure Mean 80 Blood Pressure Source Monitor Blood Pressure Position Semi-Fowlers Blood Pressure Location Right Arm Pulse Ox 95 Oxygen Delivery Method Room Air Room Air 06/23/23 08:38 06/23/23 10:00 Temperature 96.9 F L Temperature Source Temporal Pulse Rate 71 Pulse Strength Weak (1+) Respiratory Rate 18 Respiratory Effort Respiratory Depth Respiratory Pattern Blood Pressure 134/79 H Blood Pressure Mean 97 Blood Pressure Source Monitor Blood Pressure Position Semi-Fowlers Blood Pressure Location Right Arm Pulse Ox 99 Oxygen Delivery Method Room Air Weight Weight: 169 lb 12.095 oz Body Mass Index (BMI) 25.0 Physical Exam Const alert and no apparent distress; Negative for oriented x3 General Appearance: cooperative Extremity normal capillary refill and no calf tenderness Extremity Narrative: Lateral right hip surgical incision appears clean dry well-healed no redness warmth drainage no fluctuance no masses. Thigh compartments are soft. Mild laterally based hip pain with palpation at the greater trochanter area as well as with internal and external rotation of the hip. There is normal sensation the foot foot is warm and well-perfused good dorsalis pedis pulse able to wiggle the toes dorsiflex and plantarflex the foot as well as independently lift the right lower extremity. Lab / Micro Data 06/23/23 05:13 06/23/23 05:13 Labs: Laboratory Results - last 24 hr 06/22/23 05:12: ESR 24 H 06/22/23 14:28: POC Glucose 185 H 06/22/23 18:05: POC Glucose 170 H 06/22/23 20:43: POC Glucose 167 H 06/23/23 01:56: POC Glucose 177 H 06/23/23 05:13: WBC 9.9, RBC 3.84 L, Hgb 12.3 L, Hct 38.3 L, MCV 99.7 H, MCH 32.0, MCHC 32.1, RDW Std Deviation 50.3 H, RDW Coeff of Yonathan 13.9, Plt Count 149 L, MPV 11.9, Immature Gran % (Auto) 0.700, Neut % (Auto) 84.0 H, Lymph % (Auto) 4.7 L, [place] % (Auto) 5.8, Eos % (Auto) 4.5, Baso % (Auto) 0.3, Absolute Neuts (auto) 8.3 H, Absolute Lymphs (auto) 0.47 L, Nucleated RBC % 0, Differential Comment SCANNED, Sodium 136, Potassium 4.0, Chloride 105, Carbon Dioxide 25.0, Anion Gap 6, BUN 35 H, Creatinine 1.44 H, Estim Creat Clear Calc 47.05, Est GFR (MDRD) Af Amer 62, Est GFR (MDRD) Non-Af 51 L, BUN/Creatinine Ratio 24.3 H, Glucose 161 H, Calcium 9.0, Phosphorus 2.3 L, Magnesium 2.2, Total Bilirubin 0.80, Direct Bilirubin 0.42 H, AST 31, ALT 28, Alkaline Phosphatase 125 H, Total Protein 7.1, Albumin 3.0 L, Globulin 4.1 06/23/23 06:19: POC Glucose 164 H 06/23/23 09:00: Ammonia 41.0 H 06/23/23 10:25: POC Glucose 202 H Radiology Impression Hip/Pelvis X-Ray 06/22/23 15:45 IMPRESSION: No evidence of displaced pelvic or hip fracture. Electronically Signed: Segundo George DO at 16:54 EDT Reading Location ID and State: [facility] / [place] Tel [phone], Service support , agree w radiologist, press fit hemiarthroplasty looks well fixed and placed, no obvious fracture or other complication Assessment & Plan Assessment/Plan (1) Right hip pain: PLAN: 73-year-old man with right hip pain after a fall in the setting of prior uncemented hemiarthroplasty. The radiographs are negative however the patient is having difficulty ambulating therefore for now I would recommend to make the patient toe-touch weightbearing and I will order a stat CT scan of the right hip to rule out a fracture. I explained this to the patient. No concerns of an infection at the moment, would not recommend getting a hip aspiration given the exam and hx of low energy trauma.
--- NOTE | 2023-06-23 13:51 | CT_ITS ---
HISTORY: rule out fracture. TECHNIQUE: Helically acquired images were obtained of the right hip without contrast. 2-D reformats were performed by the technologist. A radiation dose optimization technique was used for this scan. 494 images. COMPARISON: XR same day. FINDINGS: BONES: No acute fracture or abnormal periprosthetic lucency identified. JOINT SPACES: Right hip arthroplasty in place. No dislocation. SOFT TISSUES: Peripheral vascular disease noted. Mild subcutaneous edema and skin thickening over the right hip. PELVIC CONTENTS: Incompletely imaged large right inguinal hernia containing small bowel with extension into the scrotum. CT/Extremity Lower without Contra IMPRESSION: Right hip arthroplasty without evidence for acute fracture or dislocation. Large right inguinal hernia containing small bowel, extending into the scrotum. Electronically Signed: Breanna Garcia MD at 16:02 EDT ,
[2023-06-23 14:38] VITALS: BP 124/75; PULSE 69; RESP 16; TEMP 36.6; O2SAT 98
[2023-06-23 14:43] LABS: Bedside Glucose 172 mg/dL (74-106)
--- NOTE | 2023-06-23 15:16 | CASEMGMT ---
Discharge Planning Updates sent to [facility] via [facility]. Kayleigh Valencia, Discharge Planning Asst.
[2023-06-23 17:18] LABS: Bedside Glucose 130 mg/dL (74-106)
[2023-06-23 20:30] VITALS: BP 126/74; PULSE 70; RESP 18; TEMP 36.7; O2SAT 97
[2023-06-23 22:00] VITALS: PULSE 70; RESP 18
[2023-06-23] MEDS: traMADol 50 MG Tablet PO (22:10)
[2023-06-24 02:30] VITALS: BP 121/72; PULSE 72; RESP 18; TEMP 36.6; O2SAT 96
[2023-06-24] MEDS: Lactulose 20 GM/30 ML UDC PO ×3 (06:27→16:55)
[2023-06-24 06:28] LABS: Absolute Lymphocyte Count 0.44 X10^3/uL (0.83-4.51); Absolute Neutrophil Count 6.7 X10^3/uL (2.0-7.7); Basophil# 0.03 X10^3/uL; Basophil% 0.4 % (0-1); Eosinophil# 0.37 X10^3/uL; Eosinophils% 4.6 % (0-5); Hematocrit 38.3 % (40-54); Hemoglobin 12.2 g/dL (13.0-16.5); Lymphocyte # 0.44 X10^3/ul (0.83-4.51); Lymphocyte % 5.5 % (19-41); Mean Corp Hgb Conc 31.9 g/dL (32-36); Mean Corpuscular Hgb 31.9 pg (27.0-32.0); Mean Corpuscular Volume 100.3 fL (80-94); Mean Platelet Vol. 11.7 fl (6.2-12.0); Monocyte# 0.51 X10^3/uL; Monocyte% 6.3 % (0-10); NRBC Flagged by Analyzer 0 % (0-5); Neutrophil # 6.66 X10^3/uL (2.7-7.7); Neutrophil % 82.5 % (47-70); POSITIVE DIFFERENTIAL YES; Platelet Count 155 K/mm3 (150-450); RBC Distribution Width CV 13.6 % (11.6-14.6); RBC Distribution Width SD 50.2 fl (35.1-43.9); Red Blood Count 3.82 M/mm3 (4.6-6.2); White Blood Count 8.1 K/mm3 (4.4-11.0)
[2023-06-24] MEDS: Insulin Lispro 100 UNIT/ML INSULN.PEN SC (06:28)
[2023-06-24] MEDS: Carbidopa/Levodopa 25/100 Tablet PO ×3 (06:28→16:55)
[2023-06-24 06:32] LABS: Differential Indicated SCAN CRITERIA MET
[2023-06-24 06:54] LABS: Anion Gap 4 (5-15); BUN 22 mg/dL (7-18); Calcium,Total 8.8 mg/dL (8.5-10.1); Chloride 107 mmol/L (98-107); Differential Comment SCANNED; EST Glomerular Filtration Rate 70 mL/min (>60); Est Glom Filt Rate - Afr Amer 85 mL/min (>60); Estimated Creatinine Clearance 61.59 ml/min; Glucose 161 mg/dL (74-106); Potassium 4.4 mmol/L (3.5-5.1); Sodium Level 137 mmol/L (136-145)
[2023-06-24 09:29] VITALS: BP 133/81; PULSE 70; RESP 16; TEMP 36.6; O2SAT 98
[2023-06-24] MEDS: APIXABAN 5 MG TABLET PO ×2 (09:34→22:37)
[2023-06-24] MEDS: Carvedilol 3.125 MG TABLET PO ×2 (09:34→22:38)
[2023-06-24] MEDS: rifAXIMin 550 MG Tablet PO ×2 (09:35→22:38)
[2023-06-24] MEDS: Pantoprazole Sodium 40 MG Tablet PO ×2 (09:35→22:39)
[2023-06-24] MEDS: Lidocaine 5% Patch 1 PATCH TOPICAL (09:35)
--- NOTE | 2023-06-24 09:47 | PN.ORTHO_ITS ---
Subjective Subjective FU note after CT right hip to rule out fracture Objective Data Objective Data Vital Signs: Vital Signs Temp Pulse Resp BP Pulse Ox O2 Del Method O2 Flow Rate 97.8 F 70 16 133/81 H 98 Room Air 3 06/24/23 09:29 06/24/23 09:29 06/24/23 09:29 06/24/23 09:29 06/24/23 09:29 06/24/23 09:29 06/22/23 02:50 Oxygen Flow Rate (L/min) 3 Oxygen Delivery Method Room Air Weight: 169 lb 12.095 oz Body Mass Index (BMI) 25.0 Intake & Output: Intake and Output for Last 24 Hours 06/22/23 06/23/23 06/24/23 23:59 23:59 23:59 Intake Total 2040 / 2040 1080 / 1320 240 / 240 Output Total 800 / 800 1300 / 1300 400 / 400 Balance 1240 / 1240 -220 / 20 -160 / -160 Lab / Micro Data 06/24/23 05:30 06/24/23 05:30 Labs: Laboratory Results - last 24 hr 06/23/23 10:25: POC Glucose 202 H 06/23/23 14:22: POC Glucose 172 H 06/23/23 17:01: POC Glucose 130 H 06/24/23 05:30: WBC 8.1, RBC 3.82 L, Hgb 12.2 L, Hct 38.3 L, MCV 100.3 H, MCH 31.9, MCHC 31.9 L, RDW Std Deviation 50.2 H, RDW Coeff of Yonathan 13.6, Plt Count 155, MPV 11.7, Immature Gran % (Auto) 0.700, Neut % (Auto) 82.5 H, Lymph % (Auto) 5.5 L, [place] % (Auto) 6.3, Eos % (Auto) 4.6, Baso % (Auto) 0.4, Absolute Neuts (auto) 6.7, Absolute Lymphs (auto) 0.44 L, Nucleated RBC % 0, Differential Comment SCANNED, Sodium 137, Potassium 4.4, Chloride 107, Carbon Dioxide 26.0, Anion Gap 4 L, BUN 22 H, Creatinine 1.10, Estim Creat Clear Calc 61.59, Est GFR (MDRD) Af Amer 85, Est GFR (MDRD) Non-Af 70, BUN/Creatinine Ratio 20.0, Glucose 161 H, Calcium 8.8 Micro: Microbiology 06/21/23 13:57 Nasal Secretion SARS-CoV-2 & FLU Antigen (Rapid) - Final Radiography Diagnostic Testing: Radiology Impression Lower Extremity CT 06/23/23 13:51 IMPRESSION: Right hip arthroplasty without evidence for acute fracture or dislocation. Large right inguinal hernia containing small bowel, extending into the scrotum. Electronically Signed: Breanna Garcia MD at 16:02 EDT , Assessment & Plan Assessment/Plan (1) Right hip pain: PLAN: 73 M right hip pain after a fall. No evidence for a fracture, therefore WBAT, recommend PT and OT, orthopedics signing off. Please call with concerns.
--- NOTE | 2023-06-24 11:02 | CASEMGMT ---
Discharge Planning Updated [facility] via [facility] of possible weekend discharge. Kayleigh Valencia, Dicharge Planning Asst.
[2023-06-24] MEDS: traMADol 50 MG Tablet PO (12:50)
[2023-06-24 13:23] LABS: Bedside Glucose 118 mg/dL (74-106)
--- NOTE | 2023-06-24 14:21 | PCM.PN.HOSP ---
Reason for Visit Reason for Visit: Diagnoses Elevated white blood cell count, unspecified (06/21/23) Other disorders of bilirubin metabolism (06/21/23) Dehydration (06/21/23) Other toxic encephalopathy (06/21/23) Pain in right hip (06/21/23) Acute kidney failure, unspecified (06/21/23) Nausea with vomiting, unspecified (06/21/23) Altered mental status, unspecified (06/21/23) Other specified abnormalities of plasma proteins (06/21/23) Objective Data Objective Data Vital Signs: Vital Signs Temp Pulse Resp BP Pulse Ox O2 Del Method O2 Flow Rate 97.8 F 70 16 133/81 H 98 Room Air 3 06/24/23 09:29 06/24/23 09:29 06/24/23 09:29 06/24/23 09:29 06/24/23 09:29 06/24/23 09:29 06/22/23 02:50 Oxygen Flow Rate (L/min) 3 Oxygen Delivery Method Room Air Weight: 169 lb 12.095 oz Body Mass Index (BMI) 25.0 Intake & Output: Intake and Output for Last 24 Hours 06/22/23 06/23/23 06/24/23 23:59 23:59 23:59 Intake Total 2040 / 2040 1080 / 1320 240 / 240 Output Total 800 / 800 1300 / 1300 550 / 550 Balance 1240 / 1240 -220 / 20 -310 / -310 Lab / Micro Data 06/24/23 05:30 06/24/23 05:30 Labs: Laboratory Results - last 24 hr 06/23/23 14:22: POC Glucose 172 H 06/23/23 17:01: POC Glucose 130 H 06/24/23 05:30: WBC 8.1, RBC 3.82 L, Hgb 12.2 L, Hct 38.3 L, MCV 100.3 H, MCH 31.9, MCHC 31.9 L, RDW Std Deviation 50.2 H, RDW Coeff of Yonathan 13.6, Plt Count 155, MPV 11.7, Immature Gran % (Auto) 0.700, Neut % (Auto) 82.5 H, Lymph % (Auto) 5.5 L, [place] % (Auto) 6.3, Eos % (Auto) 4.6, Baso % (Auto) 0.4, Absolute Neuts (auto) 6.7, Absolute Lymphs (auto) 0.44 L, Nucleated RBC % 0, Differential Comment SCANNED, Sodium 137, Potassium 4.4, Chloride 107, Carbon Dioxide 26.0, Anion Gap 4 L, BUN 22 H, Creatinine 1.10, Estim Creat Clear Calc 61.59, Est GFR (MDRD) Af Amer 85, Est GFR (MDRD) Non-Af 70, BUN/Creatinine Ratio 20.0, Glucose 161 H, Calcium 8.8 06/24/23 12:31: POC Glucose 118 H Micro: Microbiology 06/21/23 13:57 Nasal Secretion SARS-CoV-2 & FLU Antigen (Rapid) - Final Radiography Diagnostic Testing: Radiology Impression Lower Extremity CT 06/23/23 13:51 IMPRESSION: Right hip arthroplasty without evidence for acute fracture or dislocation. Large right inguinal hernia containing small bowel, extending into the scrotum. Electronically Signed: Breanna Garcia MD at 16:02 EDT Reading Location ID and State: [facility] / [place] Tel , Service support , Physical Exam Narrative Seen and examined. Patient is still confused and disoriented to time. He cannot mention the correct name of the president but he states it is not Trump but hard time recalling the correct president. He is awake and answers simple questions. Patient is fearful of unknown region and states he might fall from the bed. Complain of right hip pain. Patient was evaluated by Dr. Jain Physical exam General: Awake, oriented x2, Cooperative HEENT: Atraumatic, PERRLA, EOMI, Normocephalic Oral: Oral mucosa moist. No Gingival or Mucosal Lesions/ Ulcerations Neck: Supple, No JVD, Negative Carotid Bruits Lungs: Air entry diminished in bilateral lung bases. No crepitation/rhonchi Cardiovascular: Regular rate, Regular Rhythm, Normal S1, Normal S2, systolic murmurs Abdomen: Bowel Sounds Present, Soft, Non Tender, Non-Distended : No renal angle tenderness. No suprapubic tenderness. Extremities: No edema, Capillary Refill Less than 3 Seconds Skin: No rashes, No breakdown Musculoskeletal: No acute/severe tenderness to Palpation of Joints or Extremities including right hip or pelvis. ROM restricted on right hip. Status post right hip prosthesis Neurological: Cranial nerves II-XII grossly intact, DTR 2+/4. No acute focal neurological deficit. Psych/Mental Status: Flat affect Assessment & Plan Assessment/Plan (1) Nausea & vomiting: (2) Toxic metabolic encephalopathy: (3) Elevated troponin: (4) Acute dehydration: (5) VALENCIA (acute kidney injury): (6) Leukocytosis: (7) Hyperbilirubinemia: PLAN: Plan Nausea and vomiting -No further episodes -Continue to monitor -As needed antiemetics Resolved. VALENCIA on CKD stage IIIa -Baseline serum creatinine appears to be between 1.3 and 1.5 and measured to be 1.3 the day prior to presentation -Creatinine was 2.33 at the time of admission and now down to 1.82 today -Continue to hold diuretics(acetazolamide and Bumex) -Hold lisinopril -Avoid nephrotoxins as able -Continue gentle hydration at 75 cc an hour for another liter -Proceeding carefully with hydration due to poor EF at 25% -Repeat BMP shows improvement in creatinine 1.44 from 2.33. Looks patient VALENCIA has resolved. Creatinine at baseline 06/24: Creatinine is 1.1. BUN 22. Leukocytosis -Left shift is present -Chest x-ray is unremarkable -UA is not consistent with infection -COVID testing was negative -Recent C. difficile on 06/14/2023 was unremarkable -Likely reactive due to the above and will repeat CBC in a.m. -Hold on empiric antibiotics at this time 06/19: Leukocytosis resolved. Toxic/metabolic encephalopathy although suspicion of hepatic encephalopathy as patient has cirrhosis. Patient is intermittently confused and disoriented sometimes fearful. Lactulose dose increased to 30 mL every 6 hours Nausea To continue Right hip pain -Hip and pelvis x-ray reviewed. Nondisplaced fracture destructive or sclerotic lesion. Right hip prosthesis with no imaging evidence of loosening. ESR 24. CRP 76. -Continue Tylenol -Add lidocaine patch Ortho surgery Dr. Jain consult reviewed and appreciated. X-ray was negative therefore further CT scan was done which also does not show evidence of fracture. Therefore WBAT, PT and OT and orthopedic surgery signed off Hyperbilirubinemia -Bilirubin is not typically elevated and 1.6 today -May be reactive from the above as LFTs are normal -Alk phos is slightly elevated at 123 -If having right upper quadrant pain will consider ultrasound -Patient likely not a surgical candidate if there is any issue and would likely need a PERC drain to decompress the gallbladder Troponin elevation -This appears to be chronic and is actually less than it has been previously -Patient with extremely poor ejection fraction -No chest pain present -No need for further work-up at this time History of nonischemic cardiomyopathy -History of biventricular ICD/pacer -Currently holding diuretics due to dehydration -We will reinitiate when medically appropriate CAD/HTN/persistent atrial fibrillation/WHO group 2 pulmonary hypertension -Continue apixaban 5 mg p.o. twice daily -Continue carvedilol 3.125 mg daily -Hold lisinopril -Monitor on telemetry -Continue to monitor blood pressure with dehydration -Diuretics on hold due to VALENCIA History of cirrhosis -Continued outpatient follow-up -Continue lactulose daily Parkinson's disease -Continue home carbidopa/levodopa GERD -Continue home PPI DM-2 -Hold home Trulicity -Hold home glargine until p.o. intake is more established -SSI -Accu-Cheks as ordered History of prostate cancer -Has completed radiation treatments Chronic low back pain -Continue home pain medication regimen once mental status is improved DVT prophylaxis -Continue apixaban CODE STATUS Microbiology Past 72 Hours 06/21/23 13:57 Nasal Secretion SARS-CoV-2 & FLU Antigen (Rapid) - Final Laboratory Results 06/23/23 14:22: POC Glucose 172 H 06/23/23 17:01: POC Glucose 130 H 06/24/23 05:30: WBC 8.1, RBC 3.82 L, Hgb 12.2 L, Hct 38.3 L, MCV 100.3 H, MCH 31.9, MCHC 31.9 L, RDW Std Deviation 50.2 H, RDW Coeff of Yonathan 13.6, Plt Count 155, MPV 11.7, Immature Gran % (Auto) 0.700, Neut % (Auto) 82.5 H, Lymph % (Auto) 5.5 L, [place] % (Auto) 6.3, Eos % (Auto) 4.6, Baso % (Auto) 0.4, Absolute Neuts (auto) 6.7, Absolute Lymphs (auto) 0.44 L, Nucleated RBC % 0, Differential Comment SCANNED, Sodium 137, Potassium 4.4, Chloride 107, Carbon Dioxide 26.0, Anion Gap 4 L, BUN 22 H, Creatinine 1.10, Estim Creat Clear Calc 61.59, Est GFR (MDRD) Af Amer 85, Est GFR (MDRD) Non-Af 70, BUN/Creatinine Ratio 20.0, Glucose 161 H, Calcium 8.8 06/24/23 12:31: POC Glucose 118 H Charges/Coding Visit Charges Inpatient E&M: 68632 Subs Hosp L2
[2023-06-24 15:00] VITALS: BP 128/69; PULSE 70; RESP 16; TEMP 36.7; O2SAT 98
[2023-06-24 21:00] VITALS: BP 129/68; PULSE 71; RESP 18; TEMP 36.7; O2SAT 97
[2023-06-24 22:00] VITALS: PULSE 72
[2023-06-24 22:36] LABS: Bedside Glucose 139 mg/dL (74-106)
[2023-06-25] MEDS: Lactulose 20 GM/30 ML UDC PO ×3 (00:57→18:08)
[2023-06-25 03:00] VITALS: BP 134/67; PULSE 74; RESP 18; TEMP 36.8; O2SAT 96
[2023-06-25] MEDS: Carbidopa/Levodopa 25/100 Tablet PO ×3 (06:01→18:07)
[2023-06-25 06:07] LABS: Absolute Lymphocyte Count 0.47 X10^3/uL (0.83-4.51); Absolute Neutrophil Count 6.6 X10^3/uL (2.0-7.7); Basophil# 0.06 X10^3/uL; Basophil% 0.7 % (0-1); Eosinophil# 0.34 X10^3/uL; Eosinophils% 4.2 % (0-5); Hematocrit 39.7 % (40-54); Hemoglobin 13.1 g/dL (13.0-16.5); Lymphocyte # 0.47 X10^3/ul (0.83-4.51); Lymphocyte % 5.7 % (19-41); Mean Corpuscular Hgb 32.3 pg (27.0-32.0); Mean Corpuscular Volume 97.8 fL (80-94); Mean Platelet Vol. 10.8 fl (6.2-12.0); Monocyte# 0.63 X10^3/uL; Monocyte% 7.7 % (0-10); NRBC Flagged by Analyzer 0 % (0-5); Neutrophil # 6.63 X10^3/uL (2.7-7.7); POSITIVE DIFFERENTIAL YES; Platelet Count 174 K/mm3 (150-450); RBC Distribution Width CV 13.7 % (11.6-14.6); RBC Distribution Width SD 49.6 fl (35.1-43.9); Red Blood Count 4.06 M/mm3 (4.6-6.2); White Blood Count 8.2 K/mm3 (4.4-11.0)
[2023-06-25 06:10] LABS: Differential Indicated SCAN CRITERIA MET
[2023-06-25 06:30] LABS: Anion Gap 6 (5-15); BUN 17 mg/dL (7-18); BUN/Creat Ratio 14.4 RATIO (10-20); Calcium,Total 9.1 mg/dL (8.5-10.1); Chloride 106 mmol/L (98-107); Creatinine, Serum 1.18 mg/dL (0.70-1.30); EST Glomerular Filtration Rate 65 mL/min (>60); Est Glom Filt Rate - Afr Amer 78 mL/min (>60); Estimated Creatinine Clearance 57.42 ml/min; Glucose 151 mg/dL (74-106); Potassium 4.3 mmol/L (3.5-5.1); Sodium Level 136 mmol/L (136-145)
[2023-06-25 06:36] LABS: Differential Comment SCANNED
[2023-06-25 10:31] VITALS: BP 118/59; PULSE 70; RESP 16; TEMP 36; O2SAT 97
[2023-06-25] MEDS: APIXABAN 5 MG TABLET PO ×2 (10:34→21:10)
[2023-06-25] MEDS: Lidocaine 5% Patch 1 PATCH TOPICAL (10:34)
[2023-06-25] MEDS: Carvedilol 3.125 MG TABLET PO ×2 (10:34→21:10)
[2023-06-25] MEDS: rifAXIMin 550 MG Tablet PO ×2 (10:35→21:10)
[2023-06-25] MEDS: Pantoprazole Sodium 40 MG Tablet PO ×2 (10:35→21:10)
[2023-06-25 12:07] LABS: Bedside Glucose 139 mg/dL (74-106)
--- NOTE | 2023-06-25 12:48 | PN.HOSP_ITS ---
Reason for Visit Reason for Visit: Diagnoses Elevated white blood cell count, unspecified (06/21/23) Other disorders of bilirubin metabolism (06/21/23) Dehydration (06/21/23) Other toxic encephalopathy (06/21/23) Pain in right hip (06/21/23) Acute kidney failure, unspecified (06/21/23) Nausea with vomiting, unspecified (06/21/23) Altered mental status, unspecified (06/21/23) Other specified abnormalities of plasma proteins (06/21/23) Objective Data Objective Data Vital Signs: Vital Signs Temp Pulse Resp BP Pulse Ox O2 Del Method O2 Flow Rate 96.8 F L 70 16 118/59 L 97 Room Air 3 06/25/23 10:31 06/25/23 10:31 06/25/23 10:31 06/25/23 10:31 06/25/23 10:31 06/25/23 10:31 06/22/23 02:50 Oxygen Flow Rate (L/min) 3 Oxygen Delivery Method Room Air Weight: 169 lb 12.095 oz Body Mass Index (BMI) 25.0 Intake & Output: Intake and Output for Last 24 Hours 06/23/23 06/24/23 06/25/23 23:59 23:59 23:59 Intake Total 1080 / 1320 240 / 350 160 / 160 Output Total 1300 / 1300 550 / 550 400 / 400 Balance -220 / 20 -310 / -200 -240 / -240 Lab / Micro Data 06/25/23 05:51 06/25/23 05:51 Labs: Laboratory Results - last 24 hr 06/24/23 12:31: POC Glucose 118 H 06/24/23 16:53: POC Glucose 139 H 06/25/23 05:51: WBC 8.2, RBC 4.06 L, Hgb 13.1, Hct 39.7 L, MCV 97.8 H, MCH 32.3 H, MCHC 33.0, RDW Std Deviation 49.6 H, RDW Coeff of Yonathan 13.7, Plt Count 174, MPV 10.8, Immature Gran % (Auto) 0.700, Neut % (Auto) 81.0 H, Lymph % (Auto) 5.7 L, [place] % (Auto) 7.7, Eos % (Auto) 4.2, Baso % (Auto) 0.7, Absolute Neuts (auto) 6.6, Absolute Lymphs (auto) 0.47 L, Nucleated RBC % 0, Differential Comment SCANNED, Sodium 136, Potassium 4.3, Chloride 106, Carbon Dioxide 24.0, Anion Gap 6, BUN 17, Creatinine 1.18, Estim Creat Clear Calc 57.42, Est GFR (MDRD) Af Amer 78, Est GFR (MDRD) Non-Af 65, BUN/Creatinine Ratio 14.4, Glucose 151 H, Calcium 9.1 06/25/23 11:41: POC Glucose 139 H Micro: Microbiology 06/21/23 13:57 Nasal Secretion SARS-CoV-2 & FLU Antigen (Rapid) - Final Physical Exam Narrative Seen and examined. Patient is still confused and disoriented to time and place. Able to tell the current president correctly. He is awake and answers simple questions. Patient half of body is on bed and leg dangling from the edge of the bed. Physical exam General: Awake, oriented x2, Cooperative HEENT: Atraumatic, PERRLA, EOMI, Normocephalic Oral: Oral mucosa moist. No Gingival or Mucosal Lesions/ Ulcerations Neck: Supple, No JVD, Negative Carotid Bruits Lungs: Air entry diminished in bilateral lung bases. No crepitation/rhonchi Cardiovascular: Regular rate, Regular Rhythm, Normal S1, Normal S2, systolic murmurs Abdomen: Bowel Sounds Present, Soft, Non Tender, Non-Distended : No renal angle tenderness. No suprapubic tenderness. Extremities: No edema, Capillary Refill Less than 3 Seconds Skin: No rashes, No breakdown Musculoskeletal: No acute/severe tenderness to Palpation of Joints or Extremities including right hip or pelvis. ROM restricted on right hip. Status post right hip prosthesis Neurological: Cranial nerves II-XII grossly intact, DTR 2+/4. No acute focal neurological deficit. Psych/Mental Status: Flat affect Assessment & Plan Assessment/Plan (1) Nausea & vomiting: (2) Toxic metabolic encephalopathy: (3) Elevated troponin: (4) Acute dehydration: (5) VALENCIA (acute kidney injury): (6) Leukocytosis: (7) Hyperbilirubinemia: PLAN: Plan 1. VALENCIA on CKD stage IIIa -Baseline serum creatinine appears to be between 1.3 and 1.5 and measured to be 1.3 the day prior to presentation -Creatinine was 2.33 at the time of admission and now down to 1.82 today -Continue to hold diuretics(acetazolamide and Bumex) -Hold lisinopril -Avoid nephrotoxins as able -Continue gentle hydration at 75 cc an hour for another liter -Proceeding carefully with hydration due to poor EF at 25% -Repeat BMP shows improvement in creatinine 1.44 from 2.33. Looks patient VALENCIA has resolved. Creatinine at baseline 06/24: Creatinine is 1.1. BUN 22. 06/25: VALENCIA resolved. BUNs/creatinine 17/.18. 2. Leukocytosis -Left shift is present -Chest x-ray is unremarkable -UA is not consistent with infection -COVID testing was negative -Recent C. difficile on 06/14/2023 was unremarkable -Likely reactive due to the above and will repeat CBC in a.m. -Hold on empiric antibiotics at this time 06/19: Leukocytosis resolved. 3. Toxic/metabolic encephalopathy although suspicion of hepatic encephalopathy as patient has cirrhosis. Patient is intermittently confused and disoriented sometimes fearful. Lactulose dose increased to 30 mL every 6 hours 06/25 continue lactulose dose. Patient had soft bowel movement today. 4. Right hip pain -Hip and pelvis x-ray reviewed. Nondisplaced fracture destructive or sclerotic lesion. Right hip prosthesis with no imaging evidence of loosening. ESR 24. CRP 76. -Continue Tylenol -Add lidocaine patch 06/24: Ortho surgery Dr. Jain consult reviewed and appreciated. X-ray was negative therefore further CT scan was done which also does not show evidence of fracture. Therefore WBAT, PT and OT and orthopedic surgery signed off Hyperbilirubinemia -Bilirubin is not typically elevated and 1.6 today -May be reactive from the above as LFTs are normal -Alk phos is slightly elevated at 123 -If having right upper quadrant pain will consider ultrasound -Patient likely not a surgical candidate if there is any issue and would likely need a PERC drain to decompress the gallbladder 5. Troponin elevation -This appears to be chronic and is actually less than it has been previously -Patient with extremely poor ejection fraction -No chest pain present -No need for further work-up at this time. Does not seem to be ACS related 6. History of nonischemic cardiomyopathy -History of biventricular ICD/pacer -Currently holding diuretics due to dehydration -We will reinitiate when medically appropriate 7. CAD/HTN/persistent atrial fibrillation/WHO group 2 pulmonary hypertension -Continue apixaban 5 mg p.o. twice daily -Continue carvedilol 3.125 mg daily -Hold lisinopril -Monitor on telemetry -Continue to monitor blood pressure with dehydration -Diuretics on hold due to VALENCIA 8. History of cirrhosis -Continued outpatient follow-up -Continue lactulose daily 9. Parkinson's disease -Continue home carbidopa/levodopa 10. GERD -Continue home PPI DM-2 -Hold home Trulicity -Hold home glargine until p.o. intake is more established -SSI -Accu-Cheks as ordered 11. History of prostate cancer -Has completed radiation treatments 12. Chronic low back pain -Continue home pain medication regimen once mental status is improved DVT prophylaxis -Continue apixaban CODE STATUS Microbiology Past 72 Hours 06/21/23 13:57 Nasal Secretion SARS-CoV-2 & FLU Antigen (Rapid) - Final Laboratory Results 06/23/23 14:22: POC Glucose 172 H 06/23/23 17:01: POC Glucose 130 H 06/24/23 05:30: WBC 8.1, RBC 3.82 L, Hgb 12.2 L, Hct 38.3 L, MCV 100.3 H, MCH 31.9, MCHC 31.9 L, RDW Std Deviation 50.2 H, RDW Coeff of Yonathan 13.6, Plt Count 155, MPV 11.7, Immature Gran % (Auto) 0.700, Neut % (Auto) 82.5 H, Lymph % (Auto) 5.5 L, [place] % (Auto) 6.3, Eos % (Auto) 4.6, Baso % (Auto) 0.4, Absolute Neuts (auto) 6.7, Absolute Lymphs (auto) 0.44 L, Nucleated RBC % 0, Differential Comment SCANNED, Sodium 137, Potassium 4.4, Chloride 107, Carbon Dioxide 26.0, Anion Gap 4 L, BUN 22 H, Creatinine 1.10, Estim Creat Clear Calc 61.59, Est GFR (MDRD) Af Amer 85, Est GFR (MDRD) Non-Af 70, BUN/Creatinine Ratio 20.0, Glucose 161 H, Calcium 8.8 06/24/23 12:31: POC Glucose 118 H Charges/Coding Visit Charges Inpatient E&M: 50557 Subs Hosp L2
[2023-06-25 15:20] VITALS: BP 124/79; PULSE 70; RESP 16; TEMP 37.1; O2SAT 100
[2023-06-25 19:12] LABS: Bedside Glucose 144 mg/dL (74-106)
[2023-06-25] MEDS: Insulin Lispro 100 UNIT/ML INSULN.PEN SC (21:11)
[2023-06-25 21:20] VITALS: BP 124/78; PULSE 70; RESP 16; TEMP 36.6; O2SAT 98
[2023-06-25 22:00] VITALS: PULSE 70
[2023-06-26] MEDS: Lactulose 20 GM/30 ML UDC PO ×2 (01:00→05:21)
[2023-06-26 03:00] VITALS: BP 119/64; PULSE 72; RESP 18; TEMP 36.7; O2SAT 97
[2023-06-26 04:29] LABS: ALB/GLOB Ratio 0.8 RATIO (0.9-2.4); AST(SGOT) 28 U/L (15-37); Alanine Aminotransfer ALT/SGPT 34 U/L (16-61); Albumin, Serum 3.1 g/dL (3.2-5.0); Alkaline Phosphatase 127 U/L (45-117); Anion Gap 8 (5-15); BUN 19 mg/dL (7-18); BUN/Creat Ratio 16.5 RATIO (10-20); Chloride 106 mmol/L (98-107); Creatinine, Serum 1.15 mg/dL (0.70-1.30); EST Glomerular Filtration Rate 67 mL/min (>60); Est Glom Filt Rate - Afr Amer 81 mL/min (>60); Estimated Creatinine Clearance 58.92 ml/min; Globulin 3.8 g/dL (2.2-4.2); Glucose 167 mg/dL (74-106); Potassium 4.1 mmol/L (3.5-5.1); Protein, Total 6.9 g/dL (6.4-8.2); Sodium Level 137 mmol/L (136-145)
[2023-06-26] MEDS: Carbidopa/Levodopa 25/100 Tablet PO (06:21)
[2023-06-26 08:10] VITALS: BP 127/81; PULSE 69; RESP 16; TEMP 36; O2SAT 98
--- NOTE | 2023-06-26 09:12 | PCM.TXEXTCAR ---
Diet Diet Order/Speech Therapy: 06/21/23 19:34 Diabetic [Diet: Consistent Carb - Calorie Controlled] Is pt able to select menu?: No How many daily calories?: 1800 calorie Routine Orders/Code Status Suppository Type: Dulcolax 10mg Suppository Frequency: Daily PRN Routine Lab Work: BMP (in 1 week) Code Status: Full Code Therapies Weight Bearing: Weight bearing as tolerated Extremity Affected:: Right Lower Physical Therapy: Eval and Treat Occupational Therapy: Eval and Treat Speech Therapy: Eval and Treat Problem/Diagnosis (1) Nausea & vomiting: Status: Acute Code(s): R11.2 - Nausea with vomiting, unspecified (2) Toxic metabolic encephalopathy: Status: Acute Code(s): G92.8 - Other toxic encephalopathy (3) Elevated troponin: Status: Acute Code(s): R77.8 - Other specified abnormalities of plasma proteins (4) Acute dehydration: Status: Acute Code(s): E86.0 - Dehydration (5) VALENCIA (acute kidney injury): Status: Acute Code(s): N17.9 - Acute kidney failure, unspecified (6) Leukocytosis: Status: Acute Code(s): D72.829 - Elevated white blood cell count, unspecified (7) Hyperbilirubinemia: Status: Acute Code(s): E80.6 - Other disorders of bilirubin metabolism Plan 1. VALENCIA on CKD stage IIIa -Baseline serum creatinine appears to be between 1.3 and 1.5 and measured to be 1.3 the day prior to presentation -Creatinine was 2.33 at the time of admission and now down to 1.82 today -Continue to hold diuretics(acetazolamide and Bumex) -Hold lisinopril -Avoid nephrotoxins as able -Continue gentle hydration at 75 cc an hour for another liter -Proceeding carefully with hydration due to poor EF at 25% -Repeat BMP shows improvement in creatinine 1.44 from 2.33. Looks patient VALENCIA has resolved. Creatinine at baseline 06/24: Creatinine is 1.1. BUN 22. 06/25: VALENCIA resolved. BUNs/creatinine 23/11.18. 2. Leukocytosis -Left shift is present -Chest x-ray is unremarkable -UA is not consistent with infection -COVID testing was negative -Recent C. difficile on 06/14/2023 was unremarkable -Likely reactive due to the above and will repeat CBC in a.m. -Hold on empiric antibiotics at this time 06/19: Leukocytosis resolved. 3. Toxic/metabolic encephalopathy although suspicion of hepatic encephalopathy as patient has cirrhosis. Patient is intermittently confused and disoriented sometimes fearful. Lactulose dose increased to 30 mL every 6 hours 06/25 continue lactulose dose. Patient had soft bowel movement today. 4. Right hip pain -Hip and pelvis x-ray reviewed. Nondisplaced fracture destructive or sclerotic lesion. Right hip prosthesis with no imaging evidence of loosening. ESR 24. CRP 76. -Continue Tylenol -Add lidocaine patch 06/24: Ortho surgery Dr. Jain consult reviewed and appreciated. X-ray was negative therefore further CT scan was done which also does not show evidence of fracture. Therefore WBAT, PT and OT and orthopedic surgery signed off Hyperbilirubinemia -Bilirubin is not typically elevated and 1.6 today -May be reactive from the above as LFTs are normal -Alk phos is slightly elevated at 123 -If having right upper quadrant pain will consider ultrasound -Patient likely not a surgical candidate if there is any issue and would likely need a PERC drain to decompress the gallbladder 5. Troponin elevation -This appears to be chronic and is actually less than it has been previously -Patient with extremely poor ejection fraction -No chest pain present -No need for further work-up at this time. Does not seem to be ACS related 6. History of nonischemic cardiomyopathy -History of biventricular ICD/pacer -Currently holding diuretics due to dehydration -We will reinitiate when medically appropriate 7. CAD/HTN/persistent atrial fibrillation/WHO group 2 pulmonary hypertension -Continue apixaban 5 mg p.o. twice daily -Continue carvedilol 3.125 mg daily -Hold lisinopril -Monitor on telemetry -Continue to monitor blood pressure with dehydration -Diuretics on hold due to VALENCIA 8. History of cirrhosis -Continued outpatient follow-up -Continue lactulose daily 9. Parkinson's disease -Continue home carbidopa/levodopa 10. GERD -Continue home PPI DM-2 -Hold home Trulicity -Hold home glargine until p.o. intake is more established -SSI -Accu-Cheks as ordered 11. History of prostate cancer -Has completed radiation treatments 12. Chronic low back pain -Continue home pain medication regimen once mental status is improved DVT prophylaxis -Continue apixaban CODE STATUS Allergies/Procedures Done in Hospital Allergies acetaminophen Adverse Reaction (Verified 06/21/23 18:03) Other gi issuses oxycodone Adverse Reaction (Verified 06/21/23 12:27) hallucinations Type of Care/Length of Stay Estimated LOS: Convalescent Care Less Than 30 days Type of Care Needed: Skilled Rehab Potential: Good Prognosis: Good Additional Orders/Day of Discharge Day of Discharge: 06/26/23 Dietary and Speech Recommendations Dietitian Recommendations/Changes: Continue current diet order of carb-controlled. Expect energy and protein needs to be met with diet. If meal intake becomes <50%, will consider oral nutrition supplement for additional energy and protein. Discharge Plan Admission Admit Date/Time: 06/21/23 17:04 Attending Provider: Norris Orellana Primary Care Provider: Pratibha Canales Consulting Providers: Maximo Addison; Quynh Araya; Chandana Jain Instructions Additional Instructions / Restrictions: Patient might need prior authorization of Xifaxan if not covered by insurance. Follow-up in GI clinic. Discharge Orders/Prescriptions Prescriptions: New Xifaxan 550 mg Tablet 550 mg PO BID Qty: 0 0RF lactulose 20 gram/30 mL Solution 20 g PO TID Qty: 2880 2RF Rx Instructions: Hold if more than 3 bowel movements per day insulin lispro [Humalog KwikPen Insulin] 100 unit/mL Insulin Pen See Protocol subcut ACHS Qty: 0 0RF Protocol: 3. Sliding Scale Insulin Med Dosing Condition: 150-189 mg/dl = 1 unit Condition: 190-229 mg/dl = 2 units Condition: 230-269 mg/dl = 3 units Condition: 270-309 mg/dl = 4 units Condition: 310-349 mg/dl = 5 units Condition: 350-399 mg/dl = 6 units Condition: 400-449 mg/dl = 7 units Condition: Greater than 449 call physician Protocol Text: - Use for Total Daily Dose of Insulin 37-55 units - Obsese, infected, or steroid patients MEDIUM DOSING ALGORITHIM Remove Patch 1 patch topical DAILY@2200 Qty: 0 0RF potassium, sodium phosphates 280-160-250 mg Powder In Packet 1 packet PO TID 3 Days Qty: 9 0RF Continued bicalutamide [Casodex] 50 mg tablet 50 mg PO DAILY acetazolamide 250 mg tablet 250 mg PO BID docusate sodium 100 mg capsule 100 mg PO BID carbidopa-levodopa 25-100 mg tablet 1 tab PO TID multivitamin Tablet 1 tab PO DAILY carvedilol 3.125 mg tablet 3.125 mg PO BID Eliquis 5 mg tablet 5 mg PO BID dextrose [Glucose Gel] 40 % Gel 15 g PO Q15M PRN (Reason: Hypoglycemia) Rx Instructions: until symptoms of low blood sugar are controlled bisacodyl 10 mg suppository 10 mg NE DAILY PRN (Reason: constipation) Rx Instructions: insert 1 suppository rectally as needed for constipation x1 per episode if MOM ineffective lactulose 10 gram packet 10 g PO DAILY lidocaine 5 % adhesive patch,medicated 1 patch topical DAILY Rx Instructions: APPLY TO RIGHT HIP TOPICALLY IN THE MORNING FOR PAIN pantoprazole 40 mg tablet,delayed release (DR/EC) 40 mg PO BID sennosides [senna] 8.6 mg tablet 17.2 mg PO QHS Trulicity 1.5 mg/0.5 mL pen injector 1.5 mg subcut FR tramadol 50 mg tablet 50 mg PO Q12H PRN (Reason: LOWER BACK PAIN) 7 Days Qty: 7 0RF Changed bumetanide 2 mg tablet 1 mg PO DAILY PRN (Reason: leg swelling) Qty: 30 0RF Patient Comments: PER ECF ORDER SUMMARY REPORT, GIVE 2.5 MG BY MOUTH ONCE DAILY IN THE MORNING insulin glargine 100 UNIT/ML insulin pen 10 unit subcut DAILY Qty: 15 2RF Rx Instructions: Hold if glucose less than 130 mg/dl baclofen 20 mg tablet 10 mg PO TID PRN (Reason: BACK spasm) Qty: 90 5RF Held lisinopril 20 mg tablet 20 mg PO DAILY Hold Instructions: Hold for 7 days and repeat BMP. If blood pressure is high more than 140 mmHg, resume at lower dose 5 mg daily. potassium chloride 20 mEq tablet extended release 20 meq PO DAILY Hold Instructions: Hold while taking Neutra-Phos Discontinued aluminum-magnesium hydroxide 225-200 mg/5 mL suspension 30 ml PO Q4H PRN tramadol 50 mg tablet 50 mg PO Q6H PRN (Reason: RIGHT HIP PAIN) Referrals / Follow Up: Pratibha Canales MD [Primary Care Provider] - Within 2 Weeks FriendArmando DO [Med Staff - Active Staff] - Within 1 Month (For cirrhosis.) Disposition Disposition (needs filled in before D/C Order can be placed): [facility]
--- NOTE | 2023-06-26 09:31 | DS.PCM_ITS ---
Providers Date of Admission: 06/21/23 Date of Discharge: 06/26/23 Primary Care Physician: Dr. Pratibha Canales MD Consultations 06/23/23 09:36 Consult: Orthopedics Routine Consulting Provider: Chandana Jain Reason for Consult: Right hip pain s/p past hip replacement EMERGENT Consult: No MD Notified: Yes Date Notified: 06/23/23 Time Notified: 09:36 Method of Notification: Verbal Reason For Visit: VALENCIA Diagnosis Discharge Diagnosis (1) Nausea & vomiting: Status: Acute Code(s): R11.2 - Nausea with vomiting, unspecified (2) Toxic metabolic encephalopathy: Status: Acute Code(s): G92.8 - Other toxic encephalopathy (3) Elevated troponin: Status: Acute Code(s): R77.8 - Other specified abnormalities of plasma proteins (4) Acute dehydration: Status: Acute Code(s): E86.0 - Dehydration (5) VALENCIA (acute kidney injury): Status: Acute Code(s): N17.9 - Acute kidney failure, unspecified (6) Leukocytosis: Status: Acute Code(s): D72.829 - Elevated white blood cell count, unspecified (7) Hyperbilirubinemia: Status: Acute Code(s): E80.6 - Other disorders of bilirubin metabolism Plan 1. VALENCIA on CKD stage IIIa -Baseline serum creatinine appears to be between 1.3 and 1.5 and measured to be 1.3 the day prior to presentation -Creatinine was 2.33 at the time of admission and now down to 1.82 today -Continue to hold diuretics(acetazolamide and Bumex) -Hold lisinopril -Avoid nephrotoxins as able -Continue gentle hydration at 75 cc an hour for another liter -Proceeding carefully with hydration due to poor EF at 25% -Repeat BMP shows improvement in creatinine 1.44 from 2.33. Looks patient VALENCIA has resolved. Creatinine at baseline 06/24: Creatinine is 1.1. BUN . 06/25: VALENCIA resolved. BUNs/creatinine 23/11.18. 06/26: Bumex 1 mg daily as needed for leg swelling. Repeat BMP in 1 week. 2. Leukocytosis -Left shift is present -Chest x-ray is unremarkable -UA is not consistent with infection -COVID testing was negative -Recent C. difficile on 06/14/2023 was unremarkable -Likely reactive due to the above and will repeat CBC in a.m. -Hold on empiric antibiotics at this time 06/19: Leukocytosis resolved. 3. Toxic/metabolic encephalopathy , Most likely hepatic encephalopathy as patient has cirrhosis. Patient is intermittently confused and disoriented sometimes fearful. Lactulose dose increased to 30 mL every 6 hours 06/25 continue lactulose dose. Patient had soft bowel movement today. 06/26: Patient is awake alert oriented x3. He is answer to questions and Prompt and instantaneous. Continue lactulose and Xifaxan follow-up with GI. I think patient has hepatic encephalopathy and ammonia is elevated. Tramadol frequency decreased to twice daily. Baclofen dose decreased to 10 mg as needed for back spasm. Avoid Opioid/Benzodiazepines, neuroleptic medications which can make confusion. Patient also has history of Parkinson disease and might have dementia. Follow-up with neurology Clinic. 4. Right hip pain -Hip and pelvis x-ray reviewed. Nondisplaced fracture destructive or sclerotic lesion. Right hip prosthesis with no imaging evidence of loosening. ESR 24. CRP 76. -Continue Tylenol -Add lidocaine patch 06/24: Ortho surgery Dr. Jain consult reviewed and appreciated. X-ray was negative therefore further CT scan was done which also does not show evidence of fracture. Therefore WBAT, PT and OT and orthopedic surgery signed off Hyperbilirubinemia -Bilirubin is not typically elevated and 1.6 today -May be reactive from the above as LFTs are normal -Alk phos is slightly elevated at 123 -If having right upper quadrant pain will consider ultrasound -Patient likely not a surgical candidate if there is any issue and would likely need a PERC drain to decompress the gallbladder 5. Troponin elevation -This appears to be chronic and is actually less than it has been previously -Patient with extremely poor ejection fraction -No chest pain present -No need for further work-up at this time. Does not seem to be ACS related 6. History of nonischemic cardiomyopathy -History of biventricular ICD/pacer -Currently holding diuretics due to dehydration -We will reinitiate when medically appropriate 7. CAD/HTN/persistent atrial fibrillation/WHO group 2 pulmonary hypertension -Continue apixaban 5 mg p.o. twice daily -Continue carvedilol 3.125 mg daily -Hold lisinopril -Monitor on telemetry -Continue to monitor blood pressure with dehydration -Diuretics on hold due to VALENCIA 8. History of cirrhosis -Continued outpatient follow-up -Continue lactulose daily 9. Parkinson's disease -Continue home carbidopa/levodopa 10. GERD -Continue home PPI DM-2 -Hold home Trulicity -Hold home glargine until p.o. intake is more established -SSI -Accu-Cheks as ordered 11. History of prostate cancer -Has completed radiation treatments 12. Chronic low back pain -Continue home pain medication regimen once mental status is improved DVT prophylaxis -Continue apixaban CODE STATUS Medications at Discharge Home Medications bicalutamide 50 mg tablet (Casodex) 50 mg PO DAILY prostate 12/10/21 multivitamin 1 tab PO DAILY supplement 02/19/22 apixaban 5 mg tablet (Eliquis) 5 mg PO BID blood thinner 04/13/23 carvedilol 3.125 mg tablet 3.125 mg PO BID HEART 04/13/23 dextrose 40 % oral gel (Glucose Gel) 15 g PO Q15M PRN Hypoglycemia 04/23/23 acetazolamide 250 mg tablet 250 mg PO BID 06/08/23 carbidopa 25 mg-levodopa 100 mg tablet 1 tab PO TID PARKINSONS 06/08/23 docusate sodium 100 mg capsule 100 mg PO BID CONSTIPATION 06/08/23 lisinopril 20 mg tablet 20 mg PO DAILY BLOOD PRESSURE 06/08/23 potassium chloride 20 mEq tablet,extended release 20 meq PO DAILY SUPPLEMENT 06/08/23 bisacodyl 10 mg rectal suppository 10 mg MA DAILY PRN constipation 06/21/23 dulaglutide 1.5 mg/0.5 mL subcutaneous pen injector (Trulicity) 1.5 mg subcut FR DIABETES 06/21/23 lactulose 10 gram oral packet 10 g PO DAILY CONSTIPATION 06/21/23 lidocaine 5 % topical patch 1 patch topical DAILY RIGHT HIP PAIN 06/21/23 pantoprazole 40 mg tablet,delayed release 40 mg PO BID ACID REFLUX 06/21/23 sennosides 8.6 mg tablet (senna) 17.2 mg PO QHS CONSTIPATION 06/21/23 Remove Patch 1 patch topical DAILY@2200 ##0 06/26/23 baclofen 20 mg tablet 10 mg (1/2 x 20 mg) PO TID PRN BACK spasm #90 tabs 06/26/23 bumetanide 2 mg tablet 1 mg (1/2 x 2 mg) PO DAILY PRN leg swelling #30 tabs 06/26/23 insulin glargine 100 unit/mL (3 mL) subcutaneous pen 10 unit (0.1 mL) subcut DAILY DIABETES #15 mL 06/26/23 insulin lispro 100 unit/mL subcutaneous pen (Humalog KwikPen (U-100) Insulin) See Protocol subcut ACHS #0 mL 06/26/23 lactulose 20 gram/30 mL oral solution 20 g (30 mL) PO TID #2,880 mL 06/26/23 potassium, sodium phosphates 280 mg-160 mg-250 mg oral powder packet 1 packet PO TID 3 days #9 ea 06/26/23 rifaximin 550 mg tablet (Xifaxan) 550 mg PO BID #0 tabs 06/26/23 tramadol 50 mg tablet 50 mg PO Q12H PRN LOWER BACK PAIN 7 days #7 tabs 06/26/23 Physical Exam Narrative Seen and examined. Patient is awake alert. He cannot read the wall clock and told me the correct time. His answers to the questions were very prompt and instantaneous. He follows simple commands. Patient can sit up on the bed.He had good bowel movement. Physical exam General: Awake, oriented x3, Cooperative HEENT: Atraumatic, PERRLA, EOMI, Normocephalic Oral: Oral mucosa moist. No Gingival or Mucosal Lesions/ Ulcerations Neck: Supple, No JVD, Negative Carotid Bruits Lungs: Air entry diminished in bilateral lung bases. No crepitation/rhonchi Cardiovascular: Regular rate, Regular Rhythm, Normal S1, Normal S2, systolic murmurs Abdomen: Bowel Sounds Present, Soft, Non Tender, Non-Distended : No renal angle tenderness. No suprapubic tenderness. Extremities: No edema, Capillary Refill Less than 3 Seconds Skin: No rashes, No breakdown Musculoskeletal: No acute/severe tenderness to Palpation of Joints or Extremities including right hip or pelvis. Chronic arthritis. ROM restricted on right hip. Status post right hip prosthesis Neurological: Cranial nerves II-XII grossly intact, DTR 2+/4. No acute focal neurological deficit. Psych/Mental Status: Flat affect Weight / BMI Weight Weight: 169 lb 12.095 oz Body Mass Index (BMI) 25.0 ABG / Lab / Microbiology Data 06/25/23 05:51 06/26/23 04:03 Laboratory: Laboratory Results - last 24 hr 06/25/23 11:41: POC Glucose 139 H 06/25/23 18:04: POC Glucose 144 H 06/26/23 04:03: Sodium 137, Potassium 4.1, Chloride 106, Carbon Dioxide 23.0, Anion Gap 8, BUN 19 H, Creatinine 1.15, Estim Creat Clear Calc 58.92, Est GFR (MDRD) Af Amer 81, Est GFR (MDRD) Non-Af 67, BUN/Creatinine Ratio 16.5, Glucose 167 H, Calcium 9.0, Total Bilirubin 1.00, AST 28, ALT 34, Alkaline Phosphatase 127 H, Ammonia 38.0 H, Total Protein 6.9, Albumin 3.1 L, Globulin 3.8, Albumin/Globulin Ratio 0.8 L Microbiology: Microbiology 06/21/23 13:57 Nasal Secretion SARS-CoV-2 & FLU Antigen (Rapid) - Final Meaningful Use Info Meaningful Use Diagnoses (Choose all that apply): None applicable Discharge Plan Admission Admit Date/Time: 06/21/23 17:04 Attending Provider: Norris Orellana Primary Care Provider: Pratibha Canales Consulting Providers: Maximo Addison; Quynh Araya; Chandana Jain Instructions Additional Instructions / Restrictions: Patient might need prior authorization of Xifaxan if not covered by insurance. Follow-up in GI clinic. Discharge Orders/Prescriptions Prescriptions: New Xifaxan 550 mg Tablet 550 mg PO BID Qty: 0 0RF lactulose 20 gram/30 mL Solution 20 g PO TID Qty: 2880 2RF Rx Instructions: Hold if more than 3 bowel movements per day insulin lispro [Humalog KwikPen Insulin] 100 unit/mL Insulin Pen See Protocol subcut ACHS Qty: 0 0RF Protocol: 3. Sliding Scale Insulin Med Dosing Condition: 150-189 mg/dl = 1 unit Condition: 190-229 mg/dl = 2 units Condition: 230-269 mg/dl = 3 units Condition: 270-309 mg/dl = 4 units Condition: 310-349 mg/dl = 5 units Condition: 350-399 mg/dl = 6 units Condition: 400-449 mg/dl = 7 units Condition: Greater than 449 call physician Protocol Text: - Use for Total Daily Dose of Insulin 37-55 units - Obsese, infected, or steroid patients MEDIUM DOSING ALGORITHIM Remove Patch 1 patch topical DAILY@2200 Qty: 0 0RF potassium, sodium phosphates 280-160-250 mg Powder In Packet 1 packet PO TID 3 Days Qty: 9 0RF Continued bicalutamide [Casodex] 50 mg tablet 50 mg PO DAILY acetazolamide 250 mg tablet 250 mg PO BID docusate sodium 100 mg capsule 100 mg PO BID carbidopa-levodopa 25-100 mg tablet 1 tab PO TID multivitamin Tablet 1 tab PO DAILY carvedilol 3.125 mg tablet 3.125 mg PO BID Eliquis 5 mg tablet 5 mg PO BID dextrose [Glucose Gel] 40 % Gel 15 g PO Q15M PRN (Reason: Hypoglycemia) Rx Instructions: until symptoms of low blood sugar are controlled bisacodyl 10 mg suppository 10 mg MA DAILY PRN (Reason: constipation) Rx Instructions: insert 1 suppository rectally as needed for constipation x1 per episode if MOM ineffective lactulose 10 gram packet 10 g PO DAILY lidocaine 5 % adhesive patch,medicated 1 patch topical DAILY Rx Instructions: APPLY TO RIGHT HIP TOPICALLY IN THE MORNING FOR PAIN pantoprazole 40 mg tablet,delayed release (DR/EC) 40 mg PO BID sennosides [senna] 8.6 mg tablet 17.2 mg PO QHS Trulicity 1.5 mg/0.5 mL pen injector 1.5 mg subcut FR tramadol 50 mg tablet 50 mg PO Q12H PRN (Reason: LOWER BACK PAIN) 7 Days Qty: 7 0RF Changed bumetanide 2 mg tablet 1 mg PO DAILY PRN (Reason: leg swelling) Qty: 30 0RF Patient Comments: PER ECF ORDER SUMMARY REPORT, GIVE 2.5 MG BY MOUTH ONCE DAILY IN THE MORNING insulin glargine 100 UNIT/ML insulin pen 10 unit subcut DAILY Qty: 15 2RF Rx Instructions: Hold if glucose less than 130 mg/dl baclofen 20 mg tablet 10 mg PO TID PRN (Reason: BACK spasm) Qty: 90 5RF Held lisinopril 20 mg tablet 20 mg PO DAILY Hold Instructions: Hold for 7 days and repeat BMP. If blood pressure is high more than 140 mmHg, resume at lower dose 5 mg daily. potassium chloride 20 mEq tablet extended release 20 meq PO DAILY Hold Instructions: Hold while taking Neutra-Phos Discontinued aluminum-magnesium hydroxide 225-200 mg/5 mL suspension 30 ml PO Q4H PRN tramadol 50 mg tablet 50 mg PO Q6H PRN (Reason: RIGHT HIP PAIN) Referrals / Follow Up: Pratibha Canales MD [Primary Care Provider] - Within 2 Weeks Armando Vidal DO [Med Staff - Active Staff] - Within 1 Month (For cirrhosis.) Dwayne Horton MD [Non-Staff -Ordering Privileges] - Within 2 Weeks (Parkinson disease, dementia) Disposition Disposition (needs filled in before D/C Order can be placed): Long-Term Facility Charges/Coding Visit Charges Inpatient E&M: 42056 Disch Hosp >30min
[2023-06-26] MEDS: APIXABAN 5 MG TABLET PO (09:43)
[2023-06-26] MEDS: Lidocaine 5% Patch 1 PATCH TOPICAL (09:43)
[2023-06-26] MEDS: Carvedilol 3.125 MG TABLET PO (09:43)
[2023-06-26] MEDS: rifAXIMin 550 MG Tablet PO (09:43)
--- NOTE | 2023-06-26 09:50 | NURSING ---
I spoke with Bob HERNÁNDEZ to inform her that the pt will to d/c to [facility] this morning.
--- NOTE | 2023-06-26 09:53 | NURSING ---
I spoke with Bridgette at [facility] to inform her that pt will be d/c today with a p/u time of 1030. I also faxed over all the orders.
[2023-06-26] MEDS: Pantoprazole Sodium 40 MG Tablet PO (09:54)
--- NOTE | 2023-06-26 10:34 | NURSING ---
Report called to Joel at [facility]
== END 2023-06-26 11:00 | DRG 682 ==
LOC: ED 15:54 → PCU 17:48
PROVIDERS: Internal Medicine; Admitting Provider Family Medicine; Emergency Provider Emergency Medicine; PCP Internal Medicine; Visit Provider Internal Medicine
DX: N17.9 Acute kidney failure, unspecified (principal); G92.8 Other toxic encephalopathy; I42.8 Other cardiomyopathies; I48.11 Longstanding persistent atrial fibrillation; I13.0 Hypertensive heart and chronic kidney disease with heart failure and stage 1 through stage 4 chronic kidney disease, or unspecified chronic kidney disease; I50.42 Chronic combined systolic (congestive) and diastolic (congestive) heart failure; I27.22 Pulmonary hypertension due to left heart disease; E11.22 Type 2 diabetes mellitus with diabetic chronic kidney disease; D72.829 Elevated white blood cell count, unspecified; K76.82 Hepatic encephalopathy; E86.0 Dehydration; G20 Parkinson's disease; N18.31 Chronic kidney disease, stage 3a; G40.909 Epilepsy, unspecified, not intractable, without status epilepticus; F02.80 Dementia in other diseases classified elsewhere, unspecified severity, without behavioral disturbance, psychotic disturbance, mood disturbance, and anxiety; Z79.4 Long term (current) use of insulin; K74.60 Unspecified cirrhosis of liver; E78.5 Hyperlipidemia, unspecified; I25.10 Atherosclerotic heart disease of native coronary artery without angina pectoris; K21.9 Gastro-esophageal reflux disease without esophagitis; M54.50 Low back pain, unspecified; E80.6 Other disorders of bilirubin metabolism; M25.551 Pain in right hip; G89.29 Other chronic pain; R77.8 Other specified abnormalities of plasma proteins; Z79.01 Long term (current) use of anticoagulants; Z20.822 Contact with and (suspected) exposure to COVID-19; Z79.891 Long term (current) use of opiate analgesic; Z87.891 Personal history of nicotine dependence; Z86.73 Personal history of transient ischemic attack (TIA), and cerebral infarction without residual deficits; Z95.810 Presence of automatic (implantable) cardiac defibrillator; Z96.641 Presence of right artificial hip joint; Z85.46 Personal history of malignant neoplasm of prostate
CPT/HCPCS: 36415; 70450; 71045; 73502; 73700; 80048; 80053; 80076; 81001; 82140; 82962; 83690; 83735; 83880; 84100; 84484; 85025; 85027; 85652; 86140; 87428; 93005; 97110; 97162; 97166; 97530; 97535; 99285; J7030; A4216

== ENCOUNTER → 2023-07-01 | Outpatient (REF) | payer MEDICARE, OTHER, SELFPAY ==
[2023-07-01 08:08] LABS: Anion Gap 5 (5-15); BUN 15 mg/dL (7-18); BUN/Creat Ratio 11.5 RATIO (10-20); Calcium,Total 8.7 mg/dL (8.5-10.1); Chloride 113 mmol/L (98-107); EST Glomerular Filtration Rate 58 mL/min (>60); Est Glom Filt Rate - Afr Amer 70 mL/min (>60); Glucose 137 mg/dL (74-106); Potassium 3.9 mmol/L (3.5-5.1); Sodium Level 140 mmol/L (136-145)
== END ==
LOC: OLS.SW 05:00
PROVIDERS: PCP Internal Medicine; Visit Provider Internal Medicine
DX: N18.32 Chronic kidney disease, stage 3b (principal)
CPT/HCPCS: 36415; 80048

== ENCOUNTER → 2023-07-08 | Outpatient (REF) | payer MEDICARE, OTHER, MEDICAID, SELFPAY ==
[2023-07-08 10:50] LABS: Absolute Lymphocyte Count 0.47 X10^3/uL (0.83-4.51); Absolute Neutrophil Count 6.1 X10^3/uL (2.0-7.7); Basophil# 0.06 X10^3/uL; Basophil% 0.8 % (0-1); Eosinophil# 0.29 X10^3/uL; Eosinophils% 3.9 % (0-5); Hematocrit 40.9 % (40-54); Hemoglobin 12.7 g/dL (13.0-16.5); Lymphocyte # 0.47 X10^3/ul (0.83-4.51); Lymphocyte % 6.3 % (19-41); Mean Corp Hgb Conc 31.1 g/dL (32-36); Mean Platelet Vol. 12.1 fl (6.2-12.0); Monocyte# 0.42 X10^3/uL; Monocyte% 5.6 % (0-10); NRBC Flagged by Analyzer 0 % (0-5); Neutrophil # 6.14 X10^3/uL (2.7-7.7); Neutrophil % 82.6 % (47-70); POSITIVE DIFFERENTIAL YES; Platelet Count 147 K/mm3 (150-450); RBC Distribution Width CV 14.8 % (11.6-14.6); RBC Distribution Width SD 55.7 fl (35.1-43.9); Red Blood Count 3.97 M/mm3 (4.6-6.2); White Blood Count 7.4 K/mm3 (4.4-11.0)
[2023-07-08 10:53] LABS: Differential Indicated SCAN CRITERIA MET
[2023-07-08 11:33] LABS: Anion Gap 7 (5-15); BUN 16 mg/dL (7-18); Calcium,Total 8.9 mg/dL (8.5-10.1); Chloride 109 mmol/L (98-107); Creatinine, Serum 1.14 mg/dL (0.70-1.30); EST Glomerular Filtration Rate 67 mL/min (>60); Est Glom Filt Rate - Afr Amer 81 mL/min (>60); Glucose 156 mg/dL (74-106); Magnesium 2.3 mg/dL (1.6-2.6); Potassium 4.4 mmol/L (3.5-5.1); Sodium Level 136 mmol/L (136-145)
== END ==
LOC: OLS.SW 05:00
PROVIDERS: PCP Internal Medicine; Visit Provider Internal Medicine
DX: E11.22 Type 2 diabetes mellitus with diabetic chronic kidney disease (principal); N18.32 Chronic kidney disease, stage 3b; G93.41 Metabolic encephalopathy
CPT/HCPCS: 36415; 80048; 83735; 85025

== ENCOUNTER → 2023-07-15 | Outpatient (REF) | payer MEDICARE, OTHER, SELFPAY ==
[2023-07-15 07:49] LABS: Absolute Neutrophil Count 4.7 X10^3/uL (2.0-7.7); Basophil# 0.03 X10^3/uL; Basophil% 0.5 % (0-1); Eosinophil# 0.28 X10^3/uL; Eosinophils% 4.8 % (0-5); Hematocrit 39.4 % (40-54); Hemoglobin 12.7 g/dL (13.0-16.5); Lymphocyte % 6.9 % (19-41); Mean Corp Hgb Conc 32.2 g/dL (32-36); Mean Corpuscular Hgb 32.3 pg (27.0-32.0); Mean Corpuscular Volume 100.3 fL (80-94); Mean Platelet Vol. 11.2 fl (6.2-12.0); Monocyte# 0.37 X10^3/uL; Monocyte% 6.4 % (0-10); NRBC Flagged by Analyzer 0 % (0-5); Neutrophil # 4.68 X10^3/uL (2.7-7.7); Neutrophil % 80.9 % (47-70); POSITIVE DIFFERENTIAL YES; Platelet Count 134 K/mm3 (150-450); RBC Distribution Width CV 14.9 % (11.6-14.6); RBC Distribution Width SD 55.5 fl (35.1-43.9); Red Blood Count 3.93 M/mm3 (4.6-6.2); White Blood Count 5.8 K/mm3 (4.4-11.0)
[2023-07-15 07:55] LABS: Differential Indicated SCAN CRITERIA MET
[2023-07-15 08:01] LABS: Anion Gap 5 (5-15); BUN 17 mg/dL (7-18); BUN/Creat Ratio 14.7 RATIO (10-20); Calcium,Total 8.9 mg/dL (8.5-10.1); Chloride 115 mmol/L (98-107); Creatinine, Serum 1.16 mg/dL (0.70-1.30); EST Glomerular Filtration Rate 66 mL/min (>60); Est Glom Filt Rate - Afr Amer 80 mL/min (>60); Glucose 122 mg/dL (74-106); Magnesium 2.3 mg/dL (1.6-2.6); Sodium Level 141 mmol/L (136-145)
== END ==
LOC: OLS.SW 05:00
PROVIDERS: PCP Internal Medicine; Visit Provider Internal Medicine
DX: Z79.899 Other long term (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 (principal)
CPT/HCPCS: 36415; 80048; 83735; 85025

== ENCOUNTER → 2023-07-19 | Outpatient (REF) | payer MEDICARE, MEDICAID, SELFPAY | LOC: OLS.SW 05:00 | PROVIDERS: PCP Internal Medicine; Visit Provider Internal Medicine | DX: N18.9 Chronic kidney disease, unspecified (principal) | CPT/HCPCS: 36415; 82140 ==

== ENCOUNTER → 2023-07-21 | Outpatient (REF) | payer MEDICARE, OTHER, SELFPAY | LOC: OLS.SW 05:00 | PROVIDERS: PCP Internal Medicine; Visit Provider Internal Medicine | DX: G20 Parkinson's disease (principal) | CPT/HCPCS: 36415; 82140 ==

== ENCOUNTER → 2023-08-05 | Outpatient (REF) | payer MEDICARE, OTHER, MEDICAID, SELFPAY ==
[2023-08-05 08:47] LABS: Hematocrit 38.4 % (40-54); Mean Corp Hgb Conc 31.3 g/dL (32-36); Mean Corpuscular Hgb 31.9 pg (27.0-32.0); Mean Corpuscular Volume 102.1 fL (80-94); Mean Platelet Vol. 11.9 fl (6.2-12.0); Platelet Count 128 K/mm3 (150-450); RBC Distribution Width CV 13.8 % (11.6-14.6); RBC Distribution Width SD 52.3 fl (35.1-43.9); Red Blood Count 3.76 M/mm3 (4.6-6.2)
[2023-08-05 09:08] LABS: ALB/GLOB Ratio 0.8 RATIO (0.9-2.4); AST(SGOT) 13 U/L (15-37); Alanine Aminotransfer ALT/SGPT 17 U/L (16-61); Albumin, Serum 2.9 g/dL (3.2-5.0); Alkaline Phosphatase 99 U/L (45-117); Anion Gap 2 (5-15); BUN 20 mg/dL (7-18); BUN/Creat Ratio 17.5 RATIO (10-20); Calcium,Total 8.5 mg/dL (8.5-10.1); Chloride 115 mmol/L (98-107); Creatinine, Serum 1.14 mg/dL (0.70-1.30); EST Glomerular Filtration Rate 67 mL/min (>60); Est Glom Filt Rate - Afr Amer 81 mL/min (>60); Globulin 3.5 g/dL (2.2-4.2); Glucose 122 mg/dL (74-106); Potassium 4.1 mmol/L (3.5-5.1); Protein, Total 6.4 g/dL (6.4-8.2); Sodium Level 140 mmol/L (136-145)
[2023-08-05 09:38] LABS: International Normalized Ratio 1.7; Prothrombin Time (Protime)PT. 20.1 SECONDS (11.7-14.9)
[2023-08-05 09:40] LABS: Partial Thromboplast Time 34.6 Seconds (24.1-36.2)
== END ==
LOC: OLS.SW 05:00
PROVIDERS: PCP Internal Medicine; Visit Provider Internal Medicine
DX: K76.9 Liver disease, unspecified (principal)
CPT/HCPCS: 36415; 80053; 85027; 85610; 85730

== ENCOUNTER → 2023-08-08 | Outpatient (REF) | payer MEDICARE, OTHER, MEDICAID, SELFPAY ==
[2023-08-08 10:06] LABS: Microalbumin:Creatinine Ratio 452.1 mg/g CRE (<30 mg/g CRE)
== END ==
LOC: OLS.SW 02:30
PROVIDERS: PCP Internal Medicine; Referring Provider Internal Medicine; Visit Provider Internal Medicine
DX: K76.9 Liver disease, unspecified (principal)
CPT/HCPCS: 82043; 82570

== ENCOUNTER → 2023-08-22 | Outpatient (REF) | payer MEDICARE, OTHER, MEDICAID, SELFPAY ==
[2023-08-22 08:40] LABS: Cholesterol 107 mg/dL (200); High Density Lipoprotein 31 mg/dL; Triglycerides 91 mg/dL; Very Low Density Lipoprotein 18 mg/dL (5-40)
== END ==
LOC: OLS.SW 05:00
PROVIDERS: PCP Internal Medicine; Visit Provider Internal Medicine
DX: E78.5 Hyperlipidemia, unspecified (principal)
CPT/HCPCS: 36415; 80061

== ENCOUNTER → 2023-10-19 | Outpatient (REF) | payer MEDICARE, OTHER, MEDICAID, SELFPAY ==
[2023-10-19 08:46] LABS: Absolute Lymphocyte Count 0.45 X10^3/uL (0.83-4.51); Absolute Neutrophil Count 5.5 X10^3/uL (2.0-7.7); Basophil# 0.03 X10^3/uL; Basophil% 0.4 % (0-1); Eosinophil# 0.33 X10^3/uL; Eosinophils% 4.9 % (0-5); Hematocrit 37.2 % (40-54); Hemoglobin 11.5 g/dL (13.0-16.5); Lymphocyte # 0.45 X10^3/ul (0.83-4.51); Lymphocyte % 6.7 % (19-41); Mean Corp Hgb Conc 30.9 g/dL (32-36); Mean Corpuscular Hgb 31.5 pg (27.0-32.0); Mean Corpuscular Volume 101.9 fL (80-94); Mean Platelet Vol. 11.2 fl (6.2-12.0); Monocyte# 0.43 X10^3/uL; Monocyte% 6.4 % (0-10); NRBC Flagged by Analyzer 0 % (0-5); Neutrophil # 5.47 X10^3/uL (2.7-7.7); Neutrophil % 81.2 % (47-70); POSITIVE DIFFERENTIAL YES; Platelet Count 144 K/mm3 (150-450); RBC Distribution Width SD 55.9 fl (35.1-43.9); Red Blood Count 3.65 M/mm3 (4.6-6.2); White Blood Count 6.7 K/mm3 (4.4-11.0)
[2023-10-19 09:06] LABS: Anion Gap 5 (5-15); BUN 20 mg/dL (7-18); BUN/Creat Ratio 16.5 RATIO (10-20); Calcium,Total 8.8 mg/dL (8.5-10.1); Chloride 115 mmol/L (98-107); Creatinine, Serum 1.21 mg/dL (0.70-1.30); EST Glomerular Filtration Rate 63 mL/min (>60); Est Glom Filt Rate - Afr Amer 76 mL/min (>60); Glucose 144 mg/dL (74-106); Potassium 3.6 mmol/L (3.5-5.1); Sodium Level 141 mmol/L (136-145)
[2023-10-19 09:14] LABS: Differential Indicated SCAN CRITERIA MET
[2023-10-19 10:26] LABS: Differential Comment SCANNED
== END ==
LOC: OLS.SW 08:10
PROVIDERS: PCP Internal Medicine; Visit Provider Internal Medicine
DX: E11.22 Type 2 diabetes mellitus with diabetic chronic kidney disease (principal); N18.9 Chronic kidney disease, unspecified
CPT/HCPCS: 36415; 80048; 82140; 83735; 85025

== ENCOUNTER → 2023-11-14 | Outpatient (REF) | payer MEDICARE, MEDICAID, SELFPAY ==
--- OUTSIDE RECORDS SUMMARY | 2023-11-14 08:45 | XMS RPT_ITS | CCD ---
Author Name Unknown Address [address] [place] [address] Organization [facility] Care Team Providers Care Divorce Mediator Name Role Phone Manuel Canales MD Primary Care Provider Nivia, Arrington S Unavailable Lex WINSTON, Albino Oliveira Unavailable Unavailabl e [facility], [place] Unavailable Unavailable Primary Care Provider Unavailabl e No, Physician Primary Care Provider Unavailabl renny Osorio RN, Lorrie Unavailable Lex Posada (Rn) Unavailable Manuel Canales MD Primary Care Provider Manuel Canales MD Primary Care Provider Nivia, Arrington S Unavailable Lex WINSTON, Albino Oliveira Unavailable Unavailabl e [facility], [place] Unavailable NO, PHYSICIAN Primary Care Unavailable VIAUMUNIRA Attending Unavailable TALAMPAS, MANUEL D Primary Care Unavailable VIAU, MUNIRA ROMERO Attending Unavailable VIAUMUNIRA Attending Unavailable TALAMPAS, MANUEL D Primary Care Unavailable NO, PHYSICIAN Primary Care Unavailable VIAUMUNIRA Attending Unavailable VIAUMUNIRA Referring Unavailable VIAU, MUNIRA ROMERO Attending Unavailable TALAMPAS, MANUEL D Primary Care Unavailable VIAU, MUNIRA ROMERO Referring Unavailable VIAUMUNIRA Attending Unavailable TALAMPAS, MANUEL D Primary Care Unavailable NO, PHYSICIAN Primary Care Unavailable SRIDHAR PRADO Consulting Unavailable SYSTEM, PROVIDER NOT IN Referring Unavaila AUSTIN Hernandez Admitting Unavailable NICOLE VIERA Attending Unavailabl e VIAU, MUNIRA ROMERO Attending Unavailable NO, PHYSICIAN Primary Care Unavailable VIAU, MUNIRA ROMERO Referring Unavailable VIAU, MUNIRA ROMERO Attending Unavailable NO, PHYSICIAN Primary Care Unavailable VIAU, MUNIRA ROMERO Referring Unavailable TALAMPAS, MANUEL D Primary Care Unavailable VIAU, MUNIRA ROMERO Referring Unavailable VIAU, MUNIRA ROMERO Attending Unavailable TUMU, ETTAMARLON AVINASHPHIL Referring Unavailab le VIAU, MUNIRA ROMERO Attending Unavailable TALAMPAS, MANUEL D Primary Care Unavailable Nivia, Cosme S Unavailable [facility], [place] Unavailable Lex Posada RN Unavailable Unavailabl e Manuel Canales MD Primary Care Provider Nivia, Cosme S Unavailable Lex Posada RN Unavailable Unavailabl e [facility], [place] Unavailable Nivia, Cosme S Unavailable Lex Posada RN Unavailable Unavailabl e Nivia BUSTILLO, Cosme S Unavailable [facility], [place] Unavailable CONCEPCIÓN, MANUEL D Primary Care Unavailable JENIFFER GERONIMO A Referring Unavailable MASCI GERONIMO A Referring Unavailable TALAMPAS, MANUEL D Primary Care Unavailable TALAMPAS, MANUEL D Primary Care Unavailable RIVER FIORE Referring Unavailable MASCIGERONIMO Attending Unavailable TALAMPAS, MANUEL D Primary Care Unavailable JEFF FIOREON Referring Unavailable FIORERIVER Attending Unavailable TALAMPAS, MANUEL D Primary Care Unavailable OLGA STYLES Attending Unavailable TALAMPAS, MANUEL D Primary Care Unavailable TALAMPAS, MANUEL D Primary Care Unavailable TALAMPAS, MANUEL D Attending Unavailable TALAMPAS, MANUEL D Primary Care Unavailable HOME LOREDO Attending Unavailable HOME LOREDO Referring Unavailable TALAMPAS, MANUEL D Primary Care Unavailable HOME LOREDO Referring Unavailable TALAMPAS, MANUEL D Primary Care Unavailable TALAMPAS, MANUEL D Primary Care Unavailable MASCI, GERONIMO A Referring Unavailable Allergies Allergy Classification Reported Allergen(s) Allergy Type Date of Onset Reaction(s) Facility (20 sources) Acetaminophen / HYDROcodone; Translations: [HYDROCODONE-ACET AMINOPHEN] Drug Allergy 9 Intolerance, Other (See Comments) [facility] Work Phone: (20 sources) metFORMIN; Translations: [METFORMIN] Drug Allergy 1 Diarrhea [facility] Work Phone: (13 sources) oxyCODONE; Translations: [OXYCODONE] Drug Allergy 2 Itching, Headache [facility] (10 sources) Acetaminophen; Translations: [ACETAMINOPHEN] Drug Allergy 2 Other (See Comments) [facility] (10 sources) [place] grass pollen extract; Translations: [ALLERG EX,GRASS POLLEN-BERMUDA] Drug Allergy 9 Unknown [facility] (6 sources) Acetaminophen / oxyCODONE; Translations: [OXYCODONE-ACETAM INOPHEN] Drug Allergy 3 Unknown [facility] Medications Current Medications Medication Drug Class(es) Dates Sig (Normalized) Sig (Original) Blood-Glucose Meter (4 sources) Start: 02-03-2022 End: 02-04-2022 Blood-Glucose Meter Indications: Controlled type 2 diabetes mellitus without complication, with long-term current use of insulin (HCC) Test Two times a day. Insulin Dep? Yes E11.9 DM 2 1 Each 0 02/03/2022 02/04/2022 Active Completed/Discontinued Medications Medication Drug Class(es) Dates Sig (Normalized) Sig (Original) acetaZOLAMIDE 250 mg oral tablet (5 sources) Carbonic Anhydrase Inhibitor Start: 08-17-2023 take 1 tablet by mouth twice daily acetaZOLAMIDE (DIAMOX) 250 mg tablet Take 250 mg by mouth two times a day. 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] Onset: 12-31-2013 11-02-2021 Chronic Acute myocardial infarction (20 sources) Myocardial infarction; Translations: [ST elevation (STEMI) myocardial infarction of unspecified site] Onset: 10-25-2019 10-25-2019 Chronic Asthma (20 sources) Mild intermittent asthma; Translations: [Mild intermittent asthma, uncomplicated] Onset: 03-08-2019 03-08-2019 Chronic Cancer of prostate (20 sources) Malignant tumor of prostate; Translations: [Malignant neoplasm of prostate] Onset: 01-08-2022 01-08-2022 Chronic Cardiac dysrhythmias (20 sources) Atrial fibrillation; Translations: [Unspecified atrial fibrillation] Onset: 12-31-2013 11-02-2021 Chronic Chronic kidney disease (15 sources) Chronic kidney disease stage 3A ; Translations: [Chronic kidney disease, stage 3a] Onset: 04-12-2023 04-12-2023 Chronic Coagulation and hemorrhagic disorders (15 sources) Platelet count below reference range; Translations: [Thrombocytopenia, unspecified] Onset: 04-12-2023 04-12-2023 Chronic Conduction disorders (20 sources) H/O: cardiac pacemaker in situ; Translations: [Presence of cardiac pacemaker] Onset: 10-25-2019 10-25-2019 Chronic Congestive heart failure; nonhypertensive (20 sources) Chronic diastolic heart failure; Translations: [Chronic diastolic (congestive) heart failure] Onset: 08-25-2018 08-25-2018 Chronic Coronary atherosclerosis and other heart disease (20 sources) History of acute ST segment elevation myocardial infarction; Translations: [Old myocardial infarction] Onset: 10-25-2019 09-28-2022 Chronic Diabetes mellitus with complications (17 sources) Type 2 diabetes mellitus; Translations: [Type 2 diabetes mellitus with other specified complication] Onset: 04-12-2023 Chronic Diabetes mellitus without complication (20 sources) Type 2 diabetes mellitus without complication; Translations: [Type 2 diabetes mellitus without complications] Onset: 10-07-2017 Chronic Disorders of lipid metabolism (20 sources) Pure hypercholesterolemia; Translations: [Pure hypercholesterolemia, unspecified] Onset: 12-31-2013 11-02-2021 Chronic Epilepsy; convulsions (20 sources) Seizure disorder; Translations: [Epilepsy, unspecified, not intractable, without status epilepticus] 07-16-2014 Chronic Esophageal disorders (20 sources) Gastroesophageal reflux disease; Translations: [Gastro-esophageal reflux disease without esophagitis] Onset: 12-31-2013 11-02-2021 Chronic Essential hypertension (20 sources) Benign essential hypertension; Translations: [Essential (primary) hypertension] Onset: 12-31-2013 11-02-2021 Chronic Fracture of neck of femur (hip) (16 sources) Closed fracture of hip; Translations: [Fracture of unspecified part of neck of right femur, initial encounter for closed fracture] Onset: 02-10-2022 Episodic Genitourinary symptoms and ill-defined conditions (1 source) Other retention of urine; Translations: [Urinary retention due to benign prostatic hyperplasia] Onset: 09-13-2023 Episodic Hyperplasia of prostate (20 sources) Weak urinary stream due to benign prostatic hypertrophy; Translations: [Benign prostatic hyperplasia with lower urinary tract symptoms] Onset: 01-30-2021 01-30-2021 Chronic Hypertension with complications and secondary hypertension (20 sources) Hypertensive heart disease with congestive heart failure; Translations: [Hypertensive heart disease with heart failure] Onset: 09-28-2022 09-28-2022 Chronic Late effects of cerebrovascular disease (20 sources) Late effects of cerebrovascular disease; Translations: [Unspecified sequelae of unspecified cerebrovascular disease] Onset: 12-31-2013 11-02-2021 Chronic Neoplasms of unspecified nature or uncertain behavior (20 sources) Neoplasm of brain; Translations: [Neoplasm of unspecified behavior of brain] Onset: 12-31-2013 11-02-2021 Chronic Nutritional deficiencies (1 source) Vitamin D deficiency, unspecified; Translations: [Vitamin D deficiency] Onset: 09-28-2023 Chronic Other connective tissue disease (4 sources) History of repair of hip joint; Translations: [Presence of unspecified artificial hip joint] Chronic Other diseases of veins and lymphatics (20 sources) Bilateral lower limb edema; Translations: [Chronic venous hypertension (idiopathic) without complications of bilateral lower extremity] Onset: 04-23-2018 04-23-2018 Chronic Other endocrine disorders (1 source) Hypopituitarism; 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)] Onset: 09-28-2023 Chronic Other endocrine disorders (1 source) Testicular hypofunction; Translations: [Testicular hypofunction] Onset: 09-28-2023 Chronic Other hereditary and degenerative nervous system conditions (20 sources) Tremor; Translations: [Essential tremor] Onset: 12-31-2013 11-02-2021 Chronic Other liver diseases (20 sources) Cirrhosis of liver; Translations: [Unspecified cirrhosis of liver] Onset: 03-08-2019 03-08-2019 Chronic Other liver diseases (4 sources) Disease of liver; Translations: [Liver disease, unspecified] Chronic Other liver diseases (1 source) Liver disease, unspecified; Translations: [Liver disease] Onset: 03-09-2023 Chronic Other male genital disorders (20 sources) Secondary erectile dysfunction; Translations: [Male erectile dysfunction, unspecified] Onset: 12-31-2013 11-02-2021 Chronic Other non-traumatic joint disorders (1 source) Greater trochanteric pain syndrome of right lower limb; Translations: [Pain in right hip] Episodic Other nutritional; endocrine; and metabolic disorders (20 sources) Obesity; Translations: [Obesity, unspecified] Onset: 12-31-2013 11-02-2021 Chronic Other nutritional; endocrine; and metabolic disorders (20 sources) Hypoalbuminemia; Translations: [Other disorders of plasma-protein metabolism, not elsewhere classified] Onset: 03-08-2019 03-08-2019 Chronic Other nutritional; endocrine; and metabolic disorders (1 source) Adult failure to thrive syndrome; Translations: [Adult failure to thrive] Episodic Parkinson`s disease (17 sources) Parkinson's disease; Translations: [Parkinson's disease] Onset: 04-12-2023 Chronic Peripheral and visceral atherosclerosis (15 sources) Peripheral vascular disease, unspecified; Translations: [Peripheral vascular disease, unspecified] Onset: 04-12-2023 04-12-2023 Chronic Pulmonary heart disease (20 sources) Secondary pulmonary hypertension; Translations: [Pulmonary hypertension, secondary] Onset: 03-10-2017 03-10-2017 Chronic Residual codes; unclassified (20 sources) Sleep apnea; Translations: [Sleep apnea, unspecified] Onset: 02-24-2017 02-24-2017 Chronic Residual codes; unclassified (20 sources) Obstructive sleep apnea syndrome; Translations: [Obstructive sleep apnea (adult) (pediatric)] 04-14-2017 Chronic Residual codes; unclassified (20 sources) H/O: brain disorder; Translations: [Personal history of other specified conditions] 04-14-2017 Episodic Residual codes; unclassified (3 sources) Pain; Translations: [Pain, unspecified] Episodic Residual codes; unclassified (1 source) Tobacco user; Translations: [Tobacco use] Episodic Respiratory failure; insufficiency; arrest (adult) (15 sources) [id number] respiratory failure; Translations: [Acute and chronic respiratory failure with hypoxia] Onset: 04-12-2023 04-12-2023 Chronic Secondary malignancies (1 source) Secondary malignant neoplasm of bone; Translations: [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)] Onset: 09-28-2023 Chronic Spondylosis; intervertebral disc disorders; other back problems (3 sources) Low back pain; Translations: [Low back pain without sciatica, unspecified back pain laterality, unspecified chronicity] Episodic Past or Other Problems Problem Classification Problem Date Documented Da te Episodic/Chronic Abdominal pain (20 sources) Abdominal pain; Translations: [Unspecified abdominal pain] Onset: 12-31-2013 11-02-2021 Episodic Complications of surgical procedures or medical care (2 sources) Drug-induced hypotension; Translations: [Hypotension due to drugs] Onset: 04-12-2023 Episodic Epilepsy; convulsions (20 sources) Seizure; Translations: [Post traumatic seizures] Onset: 12-31-2013 11-02-2021 Episodic Malaise and fatigue (20 sources) Asthenia; Translations: [Other malaise] Onset: 12-31-2013 11-02-2021 Episodic Nausea and vomiting (2 sources) Nausea; Translations: [Nausea] Onset: 04-12-2023 Episodic Other aftercare (20 sources) Long-term current use of anticoagulant; Translations: [supervisor intermediates (current) use of anticoagulants] Onset: 02-24-2017 02-24-2017 Episodic Other aftercare (20 sources) Drug therapy finding; Translations: [supervisor intermediates (current) use of anticoagulants] Onset: 10-25-2019 10-25-2019 Episodic Other aftercare (1 source) [facility] (current) use of insulin; Translations: [Type 2 diabetes mellitus with other specified complication, with long-term current use of insulin ([facility])] Onset: 04-12-2023 Episodic Other circulatory disease (20 sources) History of cerebrovascular accident; Translations: [Personal history of transient ischemic attack (TIA), and cerebral infarction without residual deficits] Onset: 11-07-2010 02-24-2017 Episodic Other gastrointestinal disorders (20 sources) Constipation; Translations: [Other constipation] Onset: 12-31-2013 11-02-2021 Episodic Other nutritional; endocrine; and metabolic disorders (1 source) Adult failure to thrive; Translations: [Adult failure to thrive] Onset: 04-12-2023 Episodic Other screening for suspected conditions (not mental disorders or infectious disease) (20 sources) Patient encounter status; Translations: [Encounter for screening for malignant neoplasm of colon] Onset: 12-31-2013 11-02-2021 Episodic Other skin disorders (20 sources) Eruption; Translations: [Rash and other nonspecific skin eruption] Onset: 12-31-2013 11-02-2021 Episodic Results Test Name Value Interpretation Reference Range Facil ity Vital Signs Date Time Vital Sign Value Performing Clinician Saray adam 04-12-2023 14:21-0400 Diastolic blood pressure 57 mm[Hg] Olga Styles EPIDEMIOLOGY INTERN.COMMUNITY SERVICE COORDINATOR Work Phone: [facility] 04-12-2023 14:21-0400 Systolic blood pressure 83 mm[Hg] Olga Styles EPIDEMIOLOGY INTERN.COMMUNITY SERVICE COORDINATOR Work Phone: [facility] 04-12-2023 14:10-0400 Body weight 73.48 kg Olga Styles EPIDEMIOLOGY INTERN.COMMUNITY SERVICE COORDINATOR Work Phone: [facility] 04-12-2023 14:10-0400 Heart rate 70 /min Olga Styles EPIDEMIOLOGY INTERN.COMMUNITY SERVICE COORDINATOR Work Phone: [facility] 04-12-2023 14:10-0400 Respiratory rate 14 /min Olga Styles EPIDEMIOLOGY INTERN.COMMUNITY SERVICE COORDINATOR Work Phone: [facility] 04-12-2023 14:10-0400 SaO2% (BldA) [Mass fraction] 99 % Olga Styles EPIDEMIOLOGY INTERN.COMMUNITY SERVICE COORDINATOR Work Phone: [facility] 03-23-2023 08:11-0400 Body temperature 97.7 [degF] Manuel Canales MD Work Phone: [facility] 03-23-2023 08:11-0400 Body weight 78.47 kg Maneul Canales MD Work Phone: [facility] 03-23-2023 08:11-0400 Diastolic blood pressure 72 mm[Hg] aMnuel Canales MD Work Phone: [facility] 03-23-2023 08:11-0400 Heart rate 65 /min Manuel Canales MD Work Phone: [facility] 03-23-2023 08:11-0400 Respiratory rate 18 /min Manuel Canales MD Work Phone: [facility] 03-23-2023 08:11-0400 SaO2% (BldA) [Mass fraction] 97 % Manuel Canales MD Work Phone: [facility] 03-23-2023 08:11-0400 Systolic blood pressure 118 mm[Hg] Manuel Canales MD Work Phone: [facility] 03-09-2023 11:48-0400 Body height 177.8 cm Home Loredo MD Work Phone: [facility] 03-09-2023 11:48-0400 Body temperature 97 [degF] Home Loredo MD Work Phone: [facility] 03-09-2023 11:48-0400 Body weight 78.02 kg Home Loredo MD Work Phone: [facility] 03-09-2023 11:48-0400 Diastolic blood pressure 48 mm[Hg] Home Loredo MD Work Phone: [facility] 03-09-2023 11:48-0400 Heart rate 70 /min Home Loredo MD Work Phone: [facility] 03-09-2023 11:48-0400 SaO2% (BldA) [Mass fraction] 98 % Home Loredo MD Work Phone: [facility] 03-09-2023 11:48-0400 Systolic blood pressure 119 mm[Hg] Home Loredo MD Work Phone: [facility] 09-02-2022 11:18-0400 Body height 175.3 cm Home Loredo MD Work Phone: [facility] 09-02-2022 11:18-0400 Body temperature 97.7 [degF] Home Loredo MD Work Phone: [facility] 09-02-2022 11:18-0400 Body weight 77.56 kg Home Loredo MD Work Phone: [facility] 09-02-2022 11:18-0400 Diastolic blood pressure 73 mm[Hg] Home Loredo MD Work Phone: [facility] 09-02-2022 11:18-0400 Heart rate 70 /min Home Loredo MD Work Phone: [facility] 09-02-2022 11:18-0400 SaO2% (BldA) [Mass fraction] 99 % Home Loredo MD Work Phone: [facility] 09-02-2022 11:18-0400 Systolic blood pressure 116 mm[Hg] Home Loredo MD Work Phone: [facility] 06-15-2022 16:04-0400 Body height 175.3 cm Munira Dickerson MD Work Phone: [facility] 06-15-2022 16:04-0400 Body mass index (BMI) [Ratio] 25.84 kg/m2 Munira Dickerson MD Work Phone: [facility] 06-15-2022 16:04-0400 Body weight 79.38 kg Munira Dickerson MD Work Phone: [facility] 03-23-2022 14:02-0400 Body height 175.3 cm Munira Dickerson MD Work Phone: [facility] 03-23-2022 14:02-0400 Body mass index (BMI) [Ratio] 24.22 kg/m2 Munira Dickerson MD Work Phone: [facility] 03-23-2022 14:02-0400 Body weight 74.39 kg Munira Dickerson MD Work Phone: [facility] Encounters Encounter Date Encounter Type Care Provider Facility Start: 10-26-2023 End: 10-26-2023 [facility] Start: 09-30-2023 Telephone encounter Geronimo pugh DO Work Phone: Hematology/Oncology Start: 09-28-2023 End: 09-29-2023 ambulatory MANUEL D TALAMPAS Facility:[facility] Start: 09-23-2023 ambulatory Lex Posada RN Am bulatory Care Management Procedures Date Procedure Procedure Detail Performing Clinician Start: 03-23-2023 Hemoglobin A1c/Hemoglobin.total in Blood Manuel Canales MD Work Phone: Start: 03-09-2023 Us abdominal real ti me w/image limited Margareth Rivas MD Work Phone: Start: 09-02-2022 End: 09-02-2022 Us abdominal real time w/image limited Margareth Rivas MD Work Phone: Start: 04-03-2021 Adult depression scr eening assessment Manuel Canales MD Work Phone: Start: 02-06-2014 Colonoscopy Manuel simon MD Work Phone: Plan of Treatment Date Care Activity Detail Author Start: 09-28-2024 BP Controlled (<130/80) BP Controlle d (<130/80) [facility] Start: 04-12-2024 BP CONTROLLED (<130/80) BP CONTROLLE D (<130/80) [facility] Start: 03-23-2024 ANNUAL PCP TEAM ASSEMBLER PLASTIC BOAT MARILIA DISEASE VISIT ANNUAL PCP TEAM CHRONIC DISEASE VISIT [facility] Start: 03-23-2024 BP CONTROLLED (<130/80) BP CONTROLLE D (<130/80) [facility] Start: 03-09-2024 BP CONTROLLED (<130/80) BP CONTROLLE D (<130/80) [facility] Start: 03-09-2024 SERUM CREATININE SERUM CREATININE Cl [facility] Start: 02-07-2024 Colonoscopy COLONOSCOPY [facility] Start: 02-07-2024 COLORECTAL CANCER SCREENING COLORECTAL CANCER SCREENING [facility] Start: 02-07-2024 Screening for malign ant neoplasm of colon [facility] Start: 12-31-2023 Tetanus vaccination Tetanus: Every 1 0yrs [facility] Start: 12-31-2023 Urine microalbumin profile [facility] Start: 10-01-2023 3 comp foot exam completed DIABETIC FOOT EXAM [facility] Start: 10-01-2023 ANNUAL PCP TEAM ASSEMBLER PLASTIC BOAT MARILIA DISEASE VISIT ANNUAL PCP TEAM CHRONIC DISEASE VISIT [facility] Start: 10-01-2023 BP CONTROLLED (<130/80) BP CONTROLLE D (<130/80) [facility] Start: 10-01-2023 Influenza vaccination LUNG CANCER SC RASHEEDA [facility] Immunizations Immunization Date Immunization Notes Care Provider Mariangel frank 10-08-2022 influenza virus vaccine, unspecified formulation Lex Posada RN [facility] 10-01-2022 COVID-19 booster vaccine, age 12+ yr, bivalent (PFIZER-BIONTECH) Manuel Canales MD Work Phone: [facility] 10-01-2022 influenza, high-dose , quadrivalent vaccine (FLUZONE HIGH DOSE QUADRIVALENT) Manuel Canales MD Work Phone: [facility] 02-23-2022 COVID-19 original vaccine, age 12+ yr, monovalent (PFIZER-BIONTECH - PURPLE TOP) Manuel Canales MD Work Phone: [facility] 10-07-2021 COVID-19 vaccine, ag e 12+ yr (PFIZER-BIONTECH - PURPLE TOP) Manuel Canales MD Work Phone: [facility] Work Phone: 09-25-2021 influenza, high-dose , quadrivalent vaccine (FLUZONE HIGH DOSE QUADRIVALENT) Manuel Canales MD Work Phone: [facility] 03-26-2021 COVID-19 vaccine, ag e 12+ yr (PFIZER-BIONTECH - PURPLE TOP) Manuel Canales MD Work Phone: [facility] 03-05-2021 COVID-19 vaccine, ag e 12+ yr (PFIZER-BIONTECH - PURPLE TOP) Manuel Canales MD Work Phone: [facility] 08-12-2020 influenza, high dose seasonal, preservative-free Manuel Canales MD Work Phone: [facility] Work Phone: 04-02-2020 hepatitis A and hepatitis B vaccine Manuel Canales MD Work Phone: [facility] Work Phone: 09-24-2019 hepatitis A and hepatitis B vaccine Manuel Canales MD Work Phone: [facility] Work Phone: 08-23-2019 hepatitis A and hepatitis B vaccine Manuel Canales MD Work Phone: [facility] Work Phone: 08-02-2019 influenza, high dose seasonal, preservative-free Manuel Canales MD Work Phone: [facility] 02-13-2019 pneumococcal polysaccharide vaccine, 23 valent Manuel Canales MD Work Phone: [facility] 08-28-2018 influenza, high dose seasonal, preservative-free Manuel Canales MD Work Phone: [facility] Work Phone: 10-07-2017 pneumococcal conjuga te vaccine, 13 valent Manuel Canales MD Work Phone: [facility] 06-19-2017 influenza, high dose seasonal, preservative-free Manuel Canales MD Work Phone: [facility] Work Phone: 08-11-2016 influenza, seasonal, injectable Manuel Canales MD Work Phone: [facility] Work Phone: 07-24-2015 influenza virus vaccine, unspecified formulation Manuel Canales MD Work Phone: [facility] 08-15-2014 influenza virus vaccine, unspecified formulation Manuel Canales MD Work Phone: [facility] 12-31-2013 pneumococcal polysaccharide vaccine, 23 valent Manuel Canales MD Work Phone: [facility] 12-31-2013 tetanus toxoid, redu osei diphtheria toxoid, and acellular pertussis vaccine, adsorbed Manuel Canales MD Work Phone: [facility] NEGATED: Highlighted row has not occurred!09-25-2021 COVID-19 vaccine, age 12+ yr (MENA SOCIAL-[employer] - PURPLE TOP) Manuel Canales MD Work Phone: [facility] Payers Date Payer Category Payer Medicaid MEDICAID [facility] MEDICAID [id number] 2023-Present [phone] [address] [place] [address] Medicaid [id number] 2023 Medicaid [id number] 2017 Private Health Insurance [employer] A ETNA MEDICARE SUPPLEMENT [id number] 2017-Present [phone] [address] [address] [place] [address] Indemnity [id number] 2017 Private Health Insurance [id number] 2017 Private Health Insurance [facility] [id number] 2013 Medicare MEDICARE MEDICAR E A AND B [id number] 2013-Present [phone] [address] [address] [place] [address] Medicare [id number] 2013 Medicare [id number] 2013 Medicare [id number] 1950 Unknown [id number]. 903 1950 Unknown [id number]. 903 1950 Unknown [id number] [id number]. 903 1950 Unknown [id number] [id number]. 903 1950 Unknown [id number] 2.16.840.1.159551.3.579.2. 903 1950 Unknown [id number] [id number]. 903 1950 Unknown [id number] [id number]. 903 1950 Unknown [id number] 2.16.840.1.516860.3.579.2. 903 1952 Unknown [id number] 2.16.840.1.384802.3.579.2. 903 1950 Unknown [id number] [id number]. 903 1950 Unknown [id number] [id number]. Unknown [employer]ERCIAL [employer]ME RCIAL MISCELLANEOUS [id number] Effective for all dates [phone] [address] [place] [id number] Social History Date Type Detail Facility Start: 12-31-2013 End: 09-02-2022 Tobacco smoking status NHIS Ex-smoker [facility] Work Phone: Start: 1965 End: 07-20-2013 History of tobacco use Current smoker [facility] Work Phone: Start: 12-31-2013 End: 03-09-2023 Cigarettes smoked current (pack per day) - Reported 0.5 [facility] Start: 12-31-2013 End: 09-02-2022 Tobacco use and exposure Smokeless tobacco non-user [facility] Work Phone: Start: 01-12-2022 End: 09-28-2023 Alcohol intake Current non-drinker of alcohol (finding) [facility] Start: 04-01-2020 History SDOH Social Connections Phone 4 [facility] Start: 04-01-2020 History SDOH Social Connections Get Together 3 [facility] Start: 04-01-2020 History SDOH Social Connections Meetings 1 [facility] Start: 04-01-2020 History SDOH Stress 2 [facility] Start: 04-01-2020 History SDOH Financial 5 [facility] Start: 12-31-2013 End: 09-02-2022 Tobacco Comment Had smoked 40 years 1 PPD every 2 to 3 days (about 20 pack years) [facility] Start: 1950 Sex Assigned At Not on file [facility] Start: 12-13-2021 End: 10-01-2022 Exposure to SARS-CoV-2 (event) Not sure [facility] Tobacco smoking stat [facility] Tobacco smoking consumption unknown [facility] Work Phone: Start: 02-10-2022 Tobacco smoking stat [facility] Never smoked tobacco [facility] Start: 02-15-2022 End: 06-15-2022 Alcohol intake Current drinker of alcohol (finding) [facility] Start: 02-10-2022 History SDOH Alcohol Comment formerly drank, not in many years [facility] Start: 1965 End: 07-20-2013 History of tobacco use Cigarette Smoker [facility] Work Phone: Start: 04-01-2020 End: 03-09-2023 Social connection and isolation panel [facility] Attends [employer] Not on file [facility] Do you feel stress - tense, restless, nervous, or anxious, or unable to sleep at night because your mind is troubled all the time - these days [OSQ] Only a little [facility] At any time in the p ast 12 months, were you homeless or living in prison [including now]? No [facility] Medical Equipment Procedure Code Equipment Code Equipment Origin al Text Equipment Identifier Dates [employer] Historian-D [id number] Start: 10-12-2019 [employer] [id number] Start: 10-12-2019 [employer] [id number] Start: 10-12-2019 [employer] [id number] Start: 10-12-2019 [id number] Start: 07-06-2017 End: 02-03-2022 Goals Date Patient Goal Desired Activity /State Personal health goal Personal health goal Personal health goal Clinical Notes 02-24-2017 to 11-01-2023 Telephone Encounter - Thania Santos CALVIN - 09/30/2023 8:42 AM ESTTelephone Encounter - Thania Sanots CALVIN - 09/30/2023 8:35 AM Lex Martinez RN - 09/23/2023 2:38 PM ESTPatient Instructions Note Date & Type Note Facility 11-01-2023 Note HNO ID: [id number] Author: Lex Posada RN Service: ? Author Type: Registered Nurse Type: Progress Notes Filed: 11/01/2023 1:36 PM Note Text: CDM Telephonic Outreach Provider Action/FYI CDM: CHF, Pulm Htn, Asthma Called Pt, unable to leave?a message to verify symptom status and needs. Contacted for: Routine Telephonic Outreach Contact made with patient: No, unable to leave message. Will reattempt call Lex Posada RN November 01, 2023 1:34 PM [facility] 10-26-2023 Note HNO ID: [id number] Author: Travon Longoria RT(R) Service: ? Author Type: Technologist Type: Progress Notes Filed: 10/26/2023 11:03 AM Note Text: Radiology Service Progress Note PATIENT NAME: Steph Baumann DATE OF SERVICE: October 26, 2023 TIME: 10:31 AM PATIENT IDENTITY VERIFICATION COMPLETED USING TWO (2) IDENTIFIERS: Name and Date of confirmed by patient verbally. FALL SCREENING: Has the patient had 2 falls in the last year or 1 fall with injury or currently using an Ambulatory Assistive Device (Walker, Cane, Wheelchair, Crutches, etc.)? Yes, Patient High Risk for Falls What interventions were put in place to prevent falls during this visit? Increased Observations by Caregivers PATIENT GENDER DATA: Male PATIENT RELEVANT IMPLANT DATA REVIEWED: Not Applicable RADIOLOGY DEPARTMENT: Bone Density PERIPHERAL IV DATA: Not applicable SIGNED BY: RT Kita(R) October 26, 2023 10:31 AM [facility] 10-25-2023 Note HNO ID: [id number] Author: Lex Posada RN Service: ? Author Type: Registered Nurse Type: Progress Notes Filed: 11/01/2023 1:36 PM Note Text: CDM Telephonic Outreach Provider Action/FYI CDM: CHF, Pulm Htn, Asthma Called Pt, unable to leave?a message to verify symptom status and needs. Contacted for: Routine Telephonic Outreach Contact made with patient: No, unable to leave message. Will reattempt call Lex Posada RN October 25, 2023 1:43 PM [facility] 10-25-2023 Note Patient Outreach (AM BCMG) STEPH BAUMANN ([id number]) 1950 Date Time Provider Department 10/25/23 [place] [facility] [place] your visit today, we recorded the following information about you: Lex Posada RN 11/01/2023 1:36 PM Signed CDM Telephonic Outreach Provider Action/FYI CDM: CHF, Pulm Htn, Asthma Called Pt, unable to leave?a message to verify symptom status and needs. Contacted for: Routine Telephonic Outreach Contact made with patient: No, unable to leave message. Will reattempt call Lex Posada RN October 25, 2023 1:43 PM Lex Posada RN 11/01/2023 1:36 PM Signed CDM Telephonic Outreach Provider Action/FYI CDM: CHF, Pulm Htn, Asthma Called Pt, unable to leave?a message to verify symptom status and needs. Contacted for: Routine Telephonic Outreach Contact made with patient: No, unable to leave message. Will reattempt call Lex Posada RN November 01, 2023 1:34 PM Allergies As of Date: 10/25/2023 Noted Allergy Reaction METFORMIN 12/12/2020 6 - Diarrhea Comments: Even low dose caused diarrhea NORCO (HYDROCODONE-ACETAMINOPHEN) 01/09/2019 5 - Intolerance Comments: Hallucination OXYCODONE-ACETAMINOPHEN 09/08/2023 16 - Unknown Date Reviewed: 09/28/2023 Reviewed by: Lashon Hagan RN - Fully Assessed Reason for Visit: Community Monitoring Outreach [Other] Prescriptions as of 11/01/2023 - acetaZOLAMIDE (DIAMOX) 250 mg tablet Take 250 mg by mouth two times a day. - docusate sodium (COLACE) 100 mg capsule Take 100 mg by mouth two times a day. - lactulose 20 gram/30 mL solution Take 20 g by mouth three times a day. 30mL - pantoprazole DR (PROTONIX) 40 mg tablet Take 40 mg by mouth two times a day. - TRULICITY 1.5 mg/0.5 mL pen injector Inject 1.5 mg subcutaneously one time a week. - rifAXIMin (XIFAXAN) 550 mg tablet TWICE A DAY - GLUCAGON EMERGENCY KIT, HUMAN, INJECTION Inject subcutaneously one time only. 1 mL - sodium,potassium phosphates (POTASSIUM AND SODIUM PHOSPHATES ORAL) Take by mouth. 280-160-250 MG one packet by mouth three times daily - Sennosides 8.6 mg cap Take 17.2 mg by mouth daily at bedtime. - INSULIN LISPRO SUBCUTANEOUS Inject subcutaneously. Per sliding scale - traMADol (ULTRAM) 50 mg tablet Take 50 mg by mouth every 6 hours as needed for pain. Take one tablet by mouth every eight hours as needed for pain - spironolactone (ALDACTONE) 25 mg tablet Take 25 mg by mouth once daily. - calcium carbonate (CALCIUM 300 ORAL) Take by mouth. - iron ps complex/B12/folic acid (FERREX 150 FORTE ORAL) Take by mouth. - carvedilol (COREG) 3.125 mg tablet Take 1 tablet by mouth twice daily. - ondansetron orally disintegrating (ZOFRAN ODT) 4 mg disintegrating tablet Take 1 tablet by mouth every 8 hours as needed for nausea/vomiting. - baclofen (LIORESAL) 20 mg tablet Take 20 mg by mouth three times a day. 10 MG by mouth three times daily as needed - apixaban (ELIQUIS) 5 mg tab(s) Take 1 tablet by mouth twice daily. - bumetanide (BUMEX) 1 mg tablet Take 1 tablet by mouth once daily. - lisinopril (ZESTRIL) 40 mg tablet Take 1 tablet by mouth once daily. - insulin glargine (BASAGLAR KWIKPEN U-100 INSULIN) 100 unit/mL (3 mL) Inject 27 Units subcutaneously daily at bedtime. Adjust dose as directed - carbidopa-levodopa (SINEMET 25-100) 25-100 mg per tablet Take 1 tablet by mouth three times daily. - loratadine (CLARITIN) 10 mg tablet Take 1 tablet by mouth once daily as needed. - omeprazole (PRILOSEC) 20 mg capsule Take 1 capsule by mouth twice daily. - tamsulosin (FLOMAX) 0.4 mg TAKE 1 CAPSULE BY MOUTH AT BEDTIME - budesonide-formoterol (SYMBICORT) 80-4.5 mcg/actuation inhaler Inhale 2 Puffs as instructed twice daily. - fluticasone-vilanterol (BREO ELLIPTA) 100-25 mcg/dose inhaler Inhale 1 Inhalation as instructed once daily. - bicalutamide (CASODEX) 50 mg tablet Take 50 mg by mouth once daily. - blood sugar diagnostic (BLOOD GLUCOSE TEST) test strip Test Two times a day. Insulin Dep? Yes E11.9 DM 2 - Lancets lancets Use as instructed to check blood sugar twice daily .Insulin Dep? Yes E11.9 DM 2 - insulin needles, DISPOSABLE, (PEN NEEDLE) 31 gauge x 5/16 Use one needle per dose. One per day. DX E11.9 Insulin Yes - albuterol HFA (VENTOLIN HFA) 90 mcg/actuation inhaler Inhale 2 Puffs as instructed every 6 hours as needed for wheezing/shortness of breath. - nitroglycerin sublingual (NITROQUICK) 0.4 mg SL tablet Dissolve 1 tablet under the tongue every 5 minutes as needed for Chest Pain. - COMPOUNDED PRESCRIPTION Four point cane Dx: Z86.73, R53.1 - CPAP BiPAP @ 9/13 cm of water with humidification. lifetime supplies. Dx ALBINO - cyanocobalamin (VITAMIN B-12) 1,000 mcg tab Take 1,000 mcg by mouth once daily. - Multivitamin ORAL capsule Take 1 capsule by mouth once daily. (more content not included)... [facility] 09-30-2023 Miscellaneous Notes Latonia at [facility] notified and took a verbal order. Thania Santos LPN ----- Message from Geronimo Swift DO sent at 09/29/2023 7:33 PM EST ----- Vit D is low. He is under AL care at [facility]. Please give order to start Vit D3 2000 units PO daily if not already on vit D supplement. If he already is then increase to 5000 units daily. Geronimo Swift DO documented in this encounter [facility] 09-28-2023 Note HNO ID: [id number] Author: Geronimo Swift DO Service: ? Author Type: Physician Type: Progress Notes Filed: 09/28/2023 3:08 PM Note Text: Patient referred by River Fiore PA-C for prostate cancer. The impression and plan will be communicated by way of the shared electronic record or faxed under separate cover letter. HPI: The patient is a 73-year-old male with a past medical history significant for seizure disorder, history of brain tumor, Parkinson disease, atrial fibrillation status post cardioversion, hypercholesterolemia, hypertension, pulmonary hypertension, HFpEF, (has ICD), hypertensive heart disease, PAD, ALBINO, asthma, reflux, cirrhosis (from CHF), type 2 diabetes, CKD stage 3a, chronic edema both lower extremities and prostate cancer. Patient had a PSA of 57.6 ng/mL. Patient had a four-quadrant prostate biopsy on 11/12/2021. All 4 cores demonstrated Matthew grade 7, 2 of the cores were 4+3. One of those cores had 100% involvement and the other had 55%. CT the abdomen pelvis on 11/19/2021 demonstrated nodule in the right adrenal gland as well as evidence of a 1-1/2 x 1.3 cm hypodense nodule in the left adrenal gland potentially representing bilateral adenomas. There was enlargement the prostate gland measuring 3.5 x 4.7 cm causing indentation into the bladder base. Moderate size right inguinal hernia containing fat and nondilated small bowel loops was also observed. There was an incidental hemangioma at L5. Bone scan 11/23/2021 demonstrated increased radiopharmaceutical concentration in the right proximal clavicle, second and fourth lumbar vertebrae diffusely, left anterior lateral third through eighth ribs potentially consistent with trauma/fracture. IMPRESSION: 1. The increase in radiopharmaceutical concentration defined in the right proximal clavicle, second and fourth lumbar vertebra, the left anterior anterolateral ribs is most consistent with trauma-fracture. Plain film radiography correlation may be of benefit in the corresponding locations for further evaluation. 2. Degenerative arthritis appears expressed in the bilateral shoulders, cervical and thoracic spine. 3. There is no definitive typical scintigraphic evidence of diffuse axial skeletal metastatic disease on the current examination. Impression was metastatic disease with low-volume bone only metastases. He was started on Eligard 11/23/2021. Between 01/25/2022 and 03/17/2022 he received 70 Hsieh delivered to the prostate and seminal vesicles and 50.4 Hsieh to the bilateral pelvic lymph nodes in 28 fractions. Evidently RT was interrupted for 9 days after patient had a right femur fracture. Patient fell when getting mail. Tripped over a rug. CT R hip showing mildly displaced/impacted subcapital femoral neck fx. OR on 02/13 for a hemiarthroplasty. PSA trended lower following radiation. It was undetectable as of 10/21/2022 and again on 01/27/2023 and 09/13/2023. Insurance no longer covers Dr. Saravia. Seen by River Fiore PA-C. Referred here. Most recent injection was about 4 months ago. On bicalutamide. No diarrhea. On lactulose BID for cirrhosis. Here today with POA from [place] (daughter's friend). Visits him every 2 weeks. Diagnosed with Parkinsons in April. Requires wheelchair. Was independent prior to that. Living at [facility]. Recently started having dysuria deep in when starts urinating. No gross hematuria. Started on antibiotic at AL. Only pain is right hip and low back if sits too long. Right hip pain has been evaluated by his orthopedic several times as well as the low back pain. No clear etiology. PAST MEDICAL HISTORY Diagnosis Date Adult failure to thrive Atherosclerotic heart disease of [place] coronary artery without angina pectoris Atrial fibrillation (HCC) CVA 2010, attributed to atrial fibrillation. Warfarin since. Cardiomyopathy, unspecified (HCC) Chronic combined systolic and diastolic congestive heart failure (HCC) Chronic kidney disease, stage 3b (HCC) Chronic respiratory failure with hypoxia (HCC) Epilepsy, unspecified, not intractable, without status epilepticus (HCC) Esophageal reflux Essential and other specified forms of tremor 12/31/2013 All my life. Essential hypertension, benign Gastroesophageal reflux disease without esophagitis H/O brain tumor Benign, resected. H/O right and left heart catheterization H/O: stroke 2010 No functional residual. 04/13/2017. Hemiplegia and hemiparesis following cerebral infarction affecting left non-dominant side (HCC) Hypercholesterolemia Hyperlipidemia, unspecified Hypertensive chronic kidney disease with stage 1 through stage 4 chronic kidney disease, or unspecified chronic kidney disease ICD (implantable cardioverter-defibrillator), biventricular, in situ 10/[address] Gonzáles [facility] current use of insulin (HCC) Metabolic encephalopathy Muscle (more content not included)... [facility] 09-23-2023 Note HNO ID: [id number] Author: Lex Posada RN Service: ? Author Type: Registered Nurse Type: Progress Notes Filed: 09/23/2023 2:44 PM Note Text: CDM Telephonic Outreach Provider Action/FYI CDM: CHF, Pulm Htn, Asthma Called Pt, unable to leave?a message to verify symptom status and needs. CHF [employer] sent, Goals completed Contacted for: Goals/Falls/ADL Update Contact made with patient: No, unable to leave message. Will reattempt call Lex Posada RN September 23, 2023 2:38 PM [facility] 09-23-2023 History of Present illness Narrative CDM Telephonic Outreach Provider Action/FYI CDM: CHF, Pulm Htn, Asthma Called Pt, unable to leave?a message to verify symptom status and needs. CHF [employer] sent, Goals completed Contacted for: Goals/Falls/ADL Update Contact made with patient: No, unable to leave message. Will reattempt call Lex Posada RN September 23, 2023 2:38 PM documented in this encounter [facility] 09-23-2023 Note Patient Outreach (AM BCMG) STEPH BAUMANN ([id number]) 1950 M Date Time Provider Department 09/23/23 [place] [facility] [place] your visit today, we recorded the following information about you: Lex Posada RN 09/23/2023 2:44 PM Signed CDM Telephonic Outreach Provider Action/FYI CDM: CHF, Pulm Htn, Asthma Called Pt, unable to leave?a message to verify symptom status and needs. CHF [employer] sent, Goals completed Contacted for: Goals/Falls/ADL Update Contact made with patient: No, unable to leave message. Will reattempt call Lex Posada RN September 23, 2023 2:38 PM Allergies As of Date: 09/23/2023 Noted Allergy Reaction METFORMIN 12/12/2020 6 - Diarrhea Comments: Even low dose caused diarrhea NORCO (HYDROCODONE-ACETAMINOPHEN) 01/09/2019 5 - Intolerance Comments: Hallucination OXYCODONE-ACETAMINOPHEN 09/08/2023 16 - Unknown Date Reviewed: 09/13/2023 Reviewed by: María Jacobs LPN - Fully Assessed Reason for Visit: Community Monitoring Outreach [Other] Primary Visit Diagnosis:Chronic diastolic CHF (congestive heart failure) (HCC) [I50.32] Order(s):PT ED HEART AND VASCULAR [[id number]] Order #: [id number]: 1 Prescriptions as of 09/23/2023 - acetaZOLAMIDE (DIAMOX) 250 mg tablet Take 250 mg by mouth two times a day. - docusate sodium (COLACE) 100 mg capsule Take 100 mg by mouth two times a day. - lactulose 20 gram/30 mL solution Take 20 g by mouth three times a day. 30mL - pantoprazole DR (PROTONIX) 40 mg tablet Take 40 mg by mouth two times a day. - TRULICITY 1.5 mg/0.5 mL pen injector Inject 1.5 mg subcutaneously one time a week. - rifAXIMin (XIFAXAN) 550 mg tablet TWICE A DAY - GLUCAGON EMERGENCY KIT, HUMAN, INJECTION Inject subcutaneously one time only. 1 mL - sodium,potassium phosphates (POTASSIUM AND SODIUM PHOSPHATES ORAL) Take by mouth. 280-160-250 MG one packet by mouth three times daily - Sennosides 8.6 mg cap Take 17.2 mg by mouth daily at bedtime. - INSULIN LISPRO SUBCUTANEOUS Inject subcutaneously. Per sliding scale - traMADol (ULTRAM) 50 mg tablet Take 50 mg by mouth every 6 hours as needed for pain. Take one tablet by mouth every eight hours as needed for pain - spironolactone (ALDACTONE) 25 mg tablet Take 25 mg by mouth once daily. - calcium carbonate (CALCIUM 300 ORAL) Take by mouth. - iron ps complex/B12/folic acid (FERREX 150 FORTE ORAL) Take by mouth. - carvedilol (COREG) 3.125 mg tablet Take 1 tablet by mouth twice daily. - ondansetron orally disintegrating (ZOFRAN ODT) 4 mg disintegrating tablet Take 1 tablet by mouth every 8 hours as needed for nausea/vomiting. - baclofen (LIORESAL) 20 mg tablet Take 20 mg by mouth three times a day. 10 MG by mouth three times daily as needed - apixaban (ELIQUIS) 5 mg tab(s) Take 1 tablet by mouth twice daily. - bumetanide (BUMEX) 1 mg tablet Take 1 tablet by mouth once daily. - lisinopril (ZESTRIL) 40 mg tablet Take 1 tablet by mouth once daily. - insulin glargine (BASAGLAR KWIKPEN U-100 INSULIN) 100 unit/mL (3 mL) Inject 27 Units subcutaneously daily at bedtime. Adjust dose as directed - carbidopa-levodopa (SINEMET 25-100) 25-100 mg per tablet Take 1 tablet by mouth three times daily. - loratadine (CLARITIN) 10 mg tablet Take 1 tablet by mouth once daily as needed. - omeprazole (PRILOSEC) 20 mg capsule Take 1 capsule by mouth twice daily. - tamsulosin (FLOMAX) 0.4 mg TAKE 1 CAPSULE BY MOUTH AT BEDTIME - budesonide-formoterol (SYMBICORT) 80-4.5 mcg/actuation inhaler Inhale 2 Puffs as instructed twice daily. - fluticasone-vilanterol (BREO ELLIPTA) 100-25 mcg/dose inhaler Inhale 1 Inhalation as instructed once daily. - bicalutamide (CASODEX) 50 mg tablet Take 50 mg by mouth once daily. - blood sugar diagnostic (BLOOD GLUCOSE TEST) test strip Test Two times a day. Insulin Dep? Yes E11.9 DM 2 - Lancets lancets Use as instructed to check blood sugar twice daily .Insulin Dep? Yes E11.9 DM 2 - insulin needles, DISPOSABLE, (PEN NEEDLE) 31 gauge x 5/16 Use one needle per dose. One per day. DX E11.9 Insulin Yes - albuterol HFA (VENTOLIN HFA) 90 mcg/actuation inhaler Inhale 2 Puffs as instructed every 6 hours as needed for wheezing/shortness of breath. - nitroglycerin sublingual (NITROQUICK) 0.4 mg SL tablet Dissolve 1 tablet under the tongue every 5 minutes as needed for Chest Pain. - COMPOUNDED PRESCRIPTION Four point cane Dx: Z86.73, R53.1 - CPAP BiPAP @ 9/13 cm of water with humidification. lifetime supplies. Dx ALBINO - cyanocobalamin (VITAMIN B-12) 1,000 mcg tab Take 1,000 mcg by mouth once daily. - Multivitamin ORAL capsule Take 1 capsule by mouth once daily. Problem List As Of Date 09/23/2023 Noted Resolved Brain tumor (HCC) [D49.6] 12/31/2013 Atrial fibrillation status post cardioversion (*12/31/2013 Cerebral embolism with cer (more content not included)... [facility] 09-21-2023 Note HNO ID: [id number] Author: Lillian John RN Service: ? Author Type: Registered Nurse Type: Progress Notes Filed: 09/21/2023 1:23 PM Note Text: Steph Baumann was reviewed for potential clinical trial enrollment on [facility] #[id number] by the [facility] [place] group on 09/21/23. Per initial review, patient has disease type Prostate and appears to be not eligible based on Treatment . Requesting republican notified. Lillian John RN [facility] 09-21-2023 Note HNO ID: [id number] Author: Lillian John RN Service: ? Author Type: Registered Nurse Type: Progress Notes Filed: 09/21/2023 1:23 PM Note Text: Steph Baumann was reviewed for potential clinical trial enrollment on [facility] by the [facility]: [facility] on 09/21/23. Per initial review, patient has disease type Prostate and appears to be not eligible based on Treatment . Requesting republican notified. Lillian John RN [facility] 09-21-2023 History of Present illness Narrative Steph Baumann was reviewed for potential clinical trial enrollment on [facility] #GU010 by the [facility]: [facility] on 09/21/23. Per initial review, patient has disease type Prostate and appears to be not eligible based on Treatment . Requesting republican notified. Lillian John RN Steph Baumann was reviewed for potential clinical trial enrollment on [facility] #GU008 by the [facility]: [facility] on 09/21/23. Per initial review, patient has disease type Prostate and appears to be not eligible based on Treatment . Requesting republican notified. Lillian John RN documented in this encounter [facility] 09-15-2023 Miscellaneous Notes Called Atif. Verified name and date of of patient. Informed- verbalizes understanding. States she speaks with patient daily and will let him know. María Jacobs LPN PSA is good undetectable, still needs consult for medical oncology for ADT therapy which it look like he has set. KLEVER Zheng, DINESH GIBSON documented in this encounter [facility] 09-14-2023 Miscellaneous Notes Scheduled with Andra HERNÁNDEZ Schedule appt. With Dr. Jeniffer Barajas LPN Procedure: CONSULT TO ONCOLOGY Status: Needs Scheduling Requested appt date: Authorizing: River Fiore PA-C in [facility] Referral: [id number] (Authorized) Expires: 09/12/2024 Priority: Routine Diagnosis: Prostate cancer (HCC) [C61] Pt is requesting Dr. Swift. Please review and advise Michelle documented in this encounter [facility] 09-13-2023 Note HNO ID: [id number] Author: River Fiore PA-C Service: ? Author Type: Physician Dietetic Technician Type: Progress Notes Filed: 09/13/2023 6:41 PM Note Text: [facility] ESTABLISHED PATIENT CLINIC NOTE Some elements copied from his previous note, which have been updated where appropriate, and all reflect current medical decision making from date of this visit. SERVICE DATE: 09/13/2023 SERVICE TIME: 10:04 AM NAME: Steph Baumann CHIEF COMPLAINT: Prostate Cancer Follow up HISTORY OF PRESENT ILLNESS: Steph Baumann is a 73 year old male an established patient following up to establish care for his know history of prostate cancer The patient reports he had seen me in 2020 for elevated PSA and recommended prostate biopsy which was done with Dr. Saravia on 11/13/2021 Report from [facility]: Prostate about 50 g, left lobe is hard and the right lobe is firm, symmetrical. This demonstrated [place] score 4+3 adenocarcinoma involving 100% of 1 core in the left prostate, 55% of 1 core of the left prostate and Matthew score 3+4 adenocarcinoma involving 50% of 1 core in the right prostate and 40% of 1 core in the right prostate. Note from Dr. 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 From 01/25/2022 -03/17/2022 he received definitive radiation therapy with ADT. And now not able to follow with [facility] due to insurance according to patient friend We have no current PSA, will have PSA today and then will have him get a consult with Medical Oncology, it is not clear if the cancer has been found outside of the prostate By CT or Bone Scan , trying to get those results but as of this visit they are not uploaded Referring to Medical Oncology for management of what might be phill grade Prostate Cancer with metastasis, if we can get the imaging records that will help If not available then will need to have them repeated. LUTS: Denies and bothersome LUTS LABS: Hematocrit (%) Date Value 03/09/2023 36.7 09/02/2022 40.5 01/07/2022 36.0 10/08/2021 41.3 03/26/2021 43.3 12/11/2020 41.0 11/06/2019 43.4 PSA (ng/mL) Date Value 10/08/2021 57.6 02/13/2021 40.66 No results found for: TESTOST PSA (ng/mL) Date Value 10/08/2021 57.6 02/13/2021 40.66 Creatinine Date Value Ref Range Status 03/09/2023 1.20 0.73 - 1.22 mg/dL Final 09/02/2022 1.25 (H) 0.73 - 1.22 mg/dL Final 01/12/2022 1.34 (H) 0.73 - 1.22 mg/dL Final 01/07/2022 2.03 (H) 0.73 - 1.22 mg/dL Final MEDICATIONS: acetaZOLAMIDE (DIAMOX) 250 mg tablet Take 250 mg by mouth two times a day. docusate sodium (COLACE) 100 mg capsule Take 100 mg by mouth two times a day. lactulose 20 gram/30 mL solution Take 20 g by mouth three times a day. 30mL pantoprazole DR (PROTONIX) 40 mg tablet Take 40 mg by mouth two times a day. TRULICITY 1.5 mg/0.5 mL pen injector Inject 1.5 mg subcutaneously one time a week. rifAXIMin (XIFAXAN) 550 mg tablet TWICE A DAY GLUCAGON EMERGENCY KIT, HUMAN, INJECTION Inject subcutaneously one time only. 1 mL sodium,potassium phosphates (POTASSIUM AND SODIUM PHOSPHATES ORAL) Take by mouth. 280-160-250 MG one packet by mouth three times daily Sennosides 8.6 mg cap Take 17.2 mg by mouth daily at bedtime. INSULIN LISPRO SUBCUTANEOUS Inject subcutaneously. Per sliding scale traMADol (ULTRAM) 50 mg tablet Take 50 mg by mouth every 6 hours as needed for pain. Take one tablet by mouth every eight hours as needed for pain carvedilol (COREG) 3.125 mg tablet Take 1 tablet by mouth twice daily. baclofen (LIORESAL) 20 mg tablet Take 20 mg by mouth three times a day. 10 MG by mouth three times daily as needed apixaban (ELIQUIS) 5 mg tab(s) Take 1 tablet by mouth twice daily. bumetanide (BUMEX) 1 mg tablet Take 1 tablet by mouth once daily. (Patient taking differently: Take 1 mg by mouth once daily. Give only if gains three pounds in one day or five pounds in one week.) lisinopril (ZESTRIL) 40 mg tablet Take 1 tablet by mouth once daily. (Patient taking differently: Take 40 mg by mouth once daily. 5 MG one tablet by mouth daily) insulin glargine (BASAGLAR KWIKPEN U-100 INSULIN) 100 unit/mL (3 mL) Inject 27 Units subcutaneously daily at bedtime. Adjust dose as directed (Patient taking differently: Inject 27 Units subcutaneously daily at bedtime. Adjust dose as directed Inject 10 unit subcutaneously at bedtime for DM- hold if glucose less than 130 mg/ml) carbidopa-levodopa (SINEMET 25-100) 25-100 mg per tablet Take 1 tablet by mouth three times daily. budesonide-formoterol (SYMBICORT) 80-4.5 mcg/actuation inhaler Inhale 2 Puffs as instructed twice daily. b (more content not included)... [facility] 09-13-2023 Note HNO ID: [id number] Author: María Jacobs LPN Service: ? Author Type: ? Type: Progress Notes Filed: 09/13/2023 6:41 PM Note Text: Verified name and date of . CC Post Void Residual HPI: Steph Baumann is a 73 year old male. The patient is here now for an appointment with River Fiore, MPAS, [place], PA-COV. Procedure: Explained procedure to patient and verbalizes understanding. Performed a PVR. Patient urinated on way to appointment and unable to urinate at this time. Results of scan: 88 mL The patient tolerated the procedure well. Plan: Appointment with River. [facility] 09-05-2023 Note HNO ID: [id number] Author: Lex Posada RN Service: ? Author Type: Registered Nurse Type: Progress Notes Filed: 09/05/2023 6:39 PM Note Text: CDM Telephonic Outreach Provider Action/FYI CDM: CHF, Asthma Called Pt, unable to leave?a message to verify symptom status and needs Contacted for: Routine Telephonic Outreach Contact made with patient: No, unable to leave message. Will reattempt call Lex Posada RN September 05, 2023 6:39 PM [facility] 09-05-2023 History of Present illness Narrative CDM Telephonic Outreach Provider Action/FYI CDM: CHF, Asthma Called Pt, unable to leave?a message to verify symptom status and needs Contacted for: Routine Telephonic Outreach Contact made with patient: No, unable to leave message. Will reattempt call Lex Posada RN September 05, 2023 6:39 PM CDM Telephonic Outreach Provider Action/FYI CDM: CHF, Asthma Called Pt, unable to leave?a message to verify symptom status and needs Contacted for: Routine Telephonic Outreach Contact made with patient: No, unable to leave message. Will reattempt call Lex Posada RN September 02, 2023 10:26 AM documented in this encounter [facility] 09-02-2023 Note Patient Outreach (AM [facility]) STEPH BAUMANN ([id number]) 1950 M Date Time Provider Department 09/02/23 [place] [facility] [place] your visit today, we recorded the following information about you: Lex Posada RN 09/05/2023 6:39 PM Signed CDM Telephonic Outreach Provider Action/FYI CDM: CHF, Asthma Called Pt, unable to leave?a message to verify symptom status and needs Contacted for: Routine Telephonic Outreach Contact made with patient: No, unable to leave message. Will reattempt call Lex Posada RN September 02, 2023 10:26 AM Lex Posada RN 09/05/2023 6:39 PM Signed CDM Telephonic Outreach Provider Action/FYI CDM: CHF, Asthma Called Pt, unable to leave?a message to verify symptom status and needs Contacted for: Routine Telephonic Outreach Contact made with patient: No, unable to leave message. Will reattempt call Lex Posada RN September 05, 2023 6:39 PM Allergies As of Date: 09/02/2023 Noted Allergy Reaction METFORMIN 12/12/2020 6 - Diarrhea Comments: Even low dose caused diarrhea NORCO (HYDROCODONE-ACETAMINOPHEN) 01/09/2019 5 - Intolerance Comments: Hallucination Date Reviewed: 04/12/2023 Reviewed by: Lashonda Moore LPN - Fully Assessed Reason for Visit: Community Monitoring Outreach [Other] Prescriptions as of 09/05/2023 - traMADol (ULTRAM) 50 mg tablet Take 50 mg by mouth every 6 hours as needed for pain. - spironolactone (ALDACTONE) 25 mg tablet Take 25 mg by mouth once daily. - calcium carbonate (CALCIUM 300 ORAL) Take by mouth. - iron ps complex/B12/folic acid (FERREX 150 FORTE ORAL) Take by mouth. - carvedilol (COREG) 3.125 mg tablet Take 1 tablet by mouth twice daily. - ondansetron orally disintegrating (ZOFRAN ODT) 4 mg disintegrating tablet Take 1 tablet by mouth every 8 hours as needed for nausea/vomiting. - baclofen (LIORESAL) 20 mg tablet Take 20 mg by mouth three times daily. - apixaban (ELIQUIS) 5 mg tab(s) Take 1 tablet by mouth twice daily. - bumetanide (BUMEX) 1 mg tablet Take 1 tablet by mouth once daily. - lisinopril (ZESTRIL) 40 mg tablet Take 1 tablet by mouth once daily. - insulin glargine (BASAGLAR KWIKPEN U-100 INSULIN) 100 unit/mL (3 mL) Inject 27 Units subcutaneously daily at bedtime. Adjust dose as directed - carbidopa-levodopa (SINEMET 25-100) 25-100 mg per tablet Take 1 tablet by mouth three times daily. - loratadine (CLARITIN) 10 mg tablet Take 1 tablet by mouth once daily as needed. - omeprazole (PRILOSEC) 20 mg capsule Take 1 capsule by mouth twice daily. - tamsulosin (FLOMAX) 0.4 mg TAKE 1 CAPSULE BY MOUTH AT BEDTIME - budesonide-formoterol (SYMBICORT) 80-4.5 mcg/actuation inhaler Inhale 2 Puffs as instructed twice daily. - fluticasone-vilanterol (BREO ELLIPTA) 100-25 mcg/dose inhaler Inhale 1 Inhalation as instructed once daily. - bicalutamide (CASODEX) 50 mg tablet Take 50 mg by mouth once daily. - blood sugar diagnostic (BLOOD GLUCOSE TEST) test strip Test Two times a day. Insulin Dep? Yes E11.9 DM 2 - Lancets lancets Use as instructed to check blood sugar twice daily .Insulin Dep? Yes E11.9 DM 2 - insulin needles, DISPOSABLE, (PEN NEEDLE) 31 gauge x 5/16 Use one needle per dose. One per day. DX E11.9 Insulin Yes - albuterol HFA (VENTOLIN HFA) 90 mcg/actuation inhaler Inhale 2 Puffs as instructed every 6 hours as needed for wheezing/shortness of breath. - nitroglycerin sublingual (NITROQUICK) 0.4 mg SL tablet Dissolve 1 tablet under the tongue every 5 minutes as needed for Chest Pain. - COMPOUNDED PRESCRIPTION Four point cane Dx: Z86.73, R53.1 - CPAP BiPAP @ 9/13 cm of water with humidification. lifetime supplies. Dx ALBINO - cyanocobalamin (VITAMIN B-12) 1,000 mcg tab Take 1,000 mcg by mouth once daily. - Multivitamin ORAL capsule Take 1 capsule by mouth once daily. Problem List As Of Date 09/02/2023 Noted Resolved Brain tumor (HCC) [D49.6] 12/31/2013 Atrial fibrillation status post cardioversion (*12/31/2013 Cerebral embolism with cerebral infarction (HCC*12/31/2013 Uncontrolled type 2 diabetes mellitus without c*12/31/2013 10/07/2017 Impotence of organic origin [N52.9] 12/31/2013 Obesity, unspecified [E66.9] 12/31/2013 07/29/2022 Pure hypercholesterolemia [E78.00] 12/31/2013 Other constipation [K59.09] 12/31/2013 Special screening for malignant neoplasms, colo*12/31/2013 Debility, unspecified [R53.81] 12/31/2013 Essential and other specified forms of tremor [*12/31/2013 Esophageal reflux [K21.9] 12/31/2013 Essential hypertension, benign [I10] 12/31/2013 Unspecified late effects of cerebrovascular dis*12/31/2013 Apnea [R06.81] 12/31/2013 08/11/2016 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 [facility] 09-02-2023 Note HNO ID: [id number] Author: Lex Posada RN Service: ? Author Type: Registered Nurse Type: Progress Notes Filed: 09/05/2023 6:39 PM Note Text: CDM Telephonic Outreach Provider Action/FYI CDM: CHF, Asthma Called Pt, unable to leave?a message to verify symptom status and needs Contacted for: Routine Telephonic Outreach Contact made with patient: No, unable to leave message. Will reattempt call Lex Posada RN September 02, 2023 10:26 AM [facility] 09-01-2023 Note Patient Outreach (NE TNAV) STEPH BAUMANN ([id number]) 1950 M Date Time Provider Department 09/01/23 RADHA ALEMAN During your visit today, we recorded the following information about you: Radha Aleman MA 09/01/2023 11:42 AM Signed POPULATION HEALTH NAVIGATION OUTREACH Action/ - Heart Failure Med Optimization Next office visit: 04/04/24 - PCP Voicemail message left offering to schedule appt with Pharm Med. Patient Identified by Name and : NO Outreach Outcome/Action Unable to reach patient: Left message Did you use a PCP flex slot to schedule this appointment? N/A Reason for Outreach Medical Neighborhood SGLT2 Payer: Payor: MEDICARE / Plan: MEDICARE A AND B / Product Type: Medicare / Care Gap Reviewed:: Specialty Scheduling Reminder: Reminder note to check Health Maintenance for items below Health Maintenance items due: RSV Vaccine(1 - 1-dose 60+ series) Never done Dilated Retinal Exam due on 08/23/2017 Urine Albumin:Creatinine Ratio due on 11/06/2020 LDL Cholesterol due on 03/26/2022 HbA1C due on 06/23/2023 Influenza Vaccine(1) due on 07/08/2023 Covid-19 Vaccine(2022- season) due on 07/08/2023 Diabetic Foot Exam due on 10/01/2023 Navigation Signature: Radha Aleman MA September 01, 2023 8:30 AM Allergies As of Date: 09/01/2023 Noted Allergy Reaction METFORMIN 12/12/2020 6 - Diarrhea Comments: Even low dose caused diarrhea NORCO (HYDROCODONE-ACETAMINOPHEN) 01/09/2019 5 - Intolerance Comments: Hallucination Date Reviewed: 04/12/2023 Reviewed by: Lashonda Moore LPN - Fully Assessed Reason for Visit: Population Health Navigation Outreach [3910] Cmt: Heart Failure Med Optimization Prescriptions as of 09/01/2023 - traMADol (ULTRAM) 50 mg tablet Take 50 mg by mouth every 6 hours as needed for pain. - spironolactone (ALDACTONE) 25 mg tablet Take 25 mg by mouth once daily. - calcium carbonate (CALCIUM 300 ORAL) Take by mouth. - iron ps complex/B12/folic acid (FERREX 150 FORTE ORAL) Take by mouth. - carvedilol (COREG) 3.125 mg tablet Take 1 tablet by mouth twice daily. - ondansetron orally disintegrating (ZOFRAN ODT) 4 mg disintegrating tablet Take 1 tablet by mouth every 8 hours as needed for nausea/vomiting. - baclofen (LIORESAL) 20 mg tablet Take 20 mg by mouth three times daily. - apixaban (ELIQUIS) 5 mg tab(s) Take 1 tablet by mouth twice daily. - bumetanide (BUMEX) 1 mg tablet Take 1 tablet by mouth once daily. - lisinopril (ZESTRIL) 40 mg tablet Take 1 tablet by mouth once daily. - insulin glargine (BASAGLAR KWIKPEN U-100 INSULIN) 100 unit/mL (3 mL) Inject 27 Units subcutaneously daily at bedtime. Adjust dose as directed - carbidopa-levodopa (SINEMET 25-100) 25-100 mg per tablet Take 1 tablet by mouth three times daily. - loratadine (CLARITIN) 10 mg tablet Take 1 tablet by mouth once daily as needed. - omeprazole (PRILOSEC) 20 mg capsule Take 1 capsule by mouth twice daily. - tamsulosin (FLOMAX) 0.4 mg TAKE 1 CAPSULE BY MOUTH AT BEDTIME - budesonide-formoterol (SYMBICORT) 80-4.5 mcg/actuation inhaler Inhale 2 Puffs as instructed twice daily. - fluticasone-vilanterol (BREO ELLIPTA) 100-25 mcg/dose inhaler Inhale 1 Inhalation as instructed once daily. - bicalutamide (CASODEX) 50 mg tablet Take 50 mg by mouth once daily. - blood sugar diagnostic (BLOOD GLUCOSE TEST) test strip Test Two times a day. Insulin Dep? Yes E11.9 DM 2 - Lancets lancets Use as instructed to check blood sugar twice daily .Insulin Dep? Yes E11.9 DM 2 - insulin needles, DISPOSABLE, (PEN NEEDLE) 31 gauge x 5/16 Use one needle per dose. One per day. DX E11.9 Insulin Yes - albuterol HFA (VENTOLIN HFA) 90 mcg/actuation inhaler Inhale 2 Puffs as instructed every 6 hours as needed for wheezing/shortness of breath. - nitroglycerin sublingual (NITROQUICK) 0.4 mg SL tablet Dissolve 1 tablet under the tongue every 5 minutes as needed for Chest Pain. - COMPOUNDED PRESCRIPTION Four point cane Dx: Z86.73, R53.1 - CPAP BiPAP @ 9/13 cm of water with humidification. lifetime supplies. Dx ALBINO - cyanocobalamin (VITAMIN B-12) 1,000 mcg tab Take 1,000 mcg by mouth once daily. - Multivitamin ORAL capsule Take 1 capsule by mouth once daily. Problem List As Of Date 09/01/2023 Noted Resolved Brain tumor (HCC) [D49.6] 12/31/2013 Atrial fibrillation status post cardioversion (*12/31/2013 Cerebral embolism with cerebral infarction (HCC*12/31/2013 Uncontrolled type 2 diabetes mellitus without c*12/31/2013 10/07/2017 Impotence of organic origin [N52.9] 12/31/2013 Obesity, unspecified [E66.9] 12/31/2013 07/29/2022 Pure hypercholesterolemia [E78.00] 12/31/2013 Other constipation [K59.09] 12/31/2013 Special screening for malignant neoplasms, colo*12/31/2013 Debility, unspecified [R53.81] 12/31/2013 Essential and other specified forms of (more content not included)... [facility] 09-01-2023 Note HNO ID: [id number] Author: Radha Aleman MA Service: ? Author Type: Pinion Staker Type: Progress Notes Filed: 09/01/2023 11:42 AM Note Text: POPULATION HEALTH NAVIGATION OUTREACH Action/FYI - Heart Failure Med Optimization Next office visit: 04/04/24 - PCP Voicemail message left offering to schedule appt with Pharm Med. Patient Identified by Name and : NO Outreach Outcome/Action Unable to reach patient: Left message Did you use a PCP flex slot to schedule this appointment? N/A Reason for Outreach Medical Neighborhood SGLT2 Payer: Payor: MEDICARE / Plan: MEDICARE A AND B / Product Type: Medicare / Care Gap Reviewed:: Specialty Scheduling Reminder: Reminder note to check Health Maintenance for items below Health Maintenance items due: RSV Vaccine(1 - 1-dose 60+ series) Never done Dilated Retinal Exam due on 08/23/2017 Urine Albumin:Creatinine Ratio due on 11/06/2020 LDL Cholesterol due on 03/26/2022 HbA1C due on 06/23/2023 Influenza Vaccine(1) due on 07/08/2023 Covid-19 Vaccine(2022- season) due on 07/08/2023 Diabetic Foot Exam due on 10/01/2023 Navigation Signature: Radha Aleman MA September 01, 2023 8:30 AM [facility] 08-16-2023 Note HNO ID: [id number] Author: Lex Posada RN Service: ? Author Type: Registered Nurse Type: Progress Notes Filed: 08/16/2023 4:03 PM Note Text: CDM Telephonic Outreach Provider Action/FYI CDM: CHF, Asthma Called Pt, unable to leave?a message to verify symptom status and needs Contacted for: Routine Telephonic Outreach Contact made with patient: No, unable to leave message. Will reattempt call Lex Posada RN August 16, 2023 4:02 PM [facility] 08-15-2023 Note HNO ID: [id number] Author: Lex Posada RN Service: ? Author Type: Registered Nurse Type: Progress Notes Filed: 08/16/2023 4:03 PM Note Text: CDM Telephonic Outreach Provider Action/FYI CDM: CHF, Asthma Called Pt, unable to leave?a message to verify symptom status and needs Contacted for: Routine Telephonic Outreach Contact made with patient: No, unable to leave message. Will reattempt call Lex Posada RN August 15, 2023 12:13 PM [facility] 10-09-2023 Note Patient Outreach (AM [facility]) BAUMANNVICENTEHortensia Connelly ([id number]) 1950 Date Time Provider Department 08/15/23 [place] [facility] [place] your visit today, we recorded the following information about you: Lex Posada RN 08/16/2023 4:03 PM Signed CDM Telephonic Outreach Provider Action/FYI CDM: CHF, Asthma Called Pt, unable to leave?a message to verify symptom status and needs Contacted for: Routine Telephonic Outreach Contact made with patient: No, unable to leave message. Will reattempt call Lex Posada RN August 15, 2023 12:13 PM Lex Posada RN 08/16/2023 4:03 PM Signed [facility] Telephonic Outreach Provider Action/FYI CDM: CHF, Asthma Called Pt, unable to leave?a message to verify symptom status and needs Contacted for: Routine Telephonic Outreach Contact made with patient: No, unable to leave message. Will reattempt call Lex Posada RN August 16, 2023 4:02 PM Allergies As of Date: 08/15/2023 Noted Allergy Reaction METFORMIN 12/12/2020 6 - Diarrhea Comments: Even low dose caused diarrhea NORCO (HYDROCODONE-ACETAMINOPHEN) 01/09/2019 5 - Intolerance Comments: Hallucination Date Reviewed: 04/12/2023 Reviewed by: Lashonda Moore LPN - Fully Assessed Reason for Visit: Community Monitoring Outreach [Other] Prescriptions as of 08/16/2023 - albuterol HFA (VENTOLIN HFA) 90 mcg/actuation inhaler Inhale 2 Puffs as instructed every 6 hours as needed for wheezing/shortness of breath. - bicalutamide (CASODEX) 50 mg tablet Take 50 mg by mouth once daily. - blood sugar diagnostic (BLOOD GLUCOSE TEST) test strip Test Two times a day. Insulin Dep? Yes E11.9 DM 2 - budesonide-formoterol (SYMBICORT) 80-4.5 mcg/actuation inhaler Inhale 2 Puffs as instructed twice daily. - COMPOUNDED PRESCRIPTION Four point cane Dx: Z86.73, R53.1 - CPAP BiPAP @ 9/13 cm of water with humidification. lifetime supplies. Dx ALBINO - cyanocobalamin (VITAMIN B-12) 1,000 mcg tab Take 1,000 mcg by mouth once daily. - fluticasone-vilanterol (BREO ELLIPTA) 100-25 mcg/dose inhaler Inhale 1 Inhalation as instructed once daily. - insulin needles, DISPOSABLE, (PEN NEEDLE) 31 gauge x 5/16 Use one needle per dose. One per day. DX E11.9 Insulin Yes - Lancets lancets Use as instructed to check blood sugar twice daily .Insulin Dep? Yes E11.9 DM 2 - Multivitamin ORAL capsule Take 1 capsule by mouth once daily. - nitroglycerin sublingual (NITROQUICK) 0.4 mg SL tablet Dissolve 1 tablet under the tongue every 5 minutes as needed for Chest Pain. - tamsulosin (FLOMAX) 0.4 mg TAKE 1 CAPSULE BY MOUTH AT BEDTIME - traMADol (ULTRAM) 50 mg tablet Take 50 mg by mouth every 6 hours as needed for pain. - spironolactone (ALDACTONE) 25 mg tablet Take 25 mg by mouth once daily. - calcium carbonate (CALCIUM 300 ORAL) Take by mouth. - iron ps complex/B12/folic acid (FERREX 150 FORTE ORAL) Take by mouth. - carvedilol (COREG) 3.125 mg tablet Take 1 tablet by mouth twice daily. - ondansetron orally disintegrating (ZOFRAN ODT) 4 mg disintegrating tablet Take 1 tablet by mouth every 8 hours as needed for nausea/vomiting. - baclofen (LIORESAL) 20 mg tablet Take 20 mg by mouth three times daily. - apixaban (ELIQUIS) 5 mg tab(s) Take 1 tablet by mouth twice daily. - bumetanide (BUMEX) 1 mg tablet Take 1 tablet by mouth once daily. - lisinopril (ZESTRIL) 40 mg tablet Take 1 tablet by mouth once daily. - insulin glargine (LENNY RICHARDSON U-100 INSULIN) 100 unit/mL (3 mL) Inject 27 Units subcutaneously daily at bedtime. Adjust dose as directed - carbidopa-levodopa (SINEMET 25-100) 25-100 mg per tablet Take 1 tablet by mouth three times daily. - loratadine (CLARITIN) 10 mg tablet Take 1 tablet by mouth once daily as needed. - omeprazole (PRILOSEC) 20 mg capsule Take 1 capsule by mouth twice daily. Problem List As Of Date 08/15/2023 Noted Resolved Brain tumor (HCC) [D49.6] 12/31/2013 Atrial fibrillation status post cardioversion (*12/31/2013 Cerebral embolism with cerebral infarction (HCC*12/31/2013 Uncontrolled type 2 diabetes mellitus without c*12/31/2013 10/07/2017 Impotence of organic origin [N52.9] 12/31/2013 Obesity, unspecified [E66.9] 12/31/2013 07/29/2022 Pure hypercholesterolemia [E78.00] 12/31/2013 Other constipation [K59.09] 12/31/2013 Special screening for malignant neoplasms, colo*12/31/2013 Debility, unspecified [R53.81] 12/31/2013 Essential and other specified forms of tremor [*12/31/2013 Esophageal reflux [K21.9] 12/31/2013 Essential hypertension, benign [I10] 12/31/2013 Unspecified late effects of cerebrovascular dis*12/31/2013 Apnea [R06.81] 12/31/2013 08/11/2016 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 [facility] 08-12-2023 Miscellaneous Notes Luz Elena had faxed orders. Netta Espinal RN August 12, 2023 3:00 PM Netta, Has this been taken care of? Thanks Home [place] MD called again saying that [facility] did not receive US order, labs. New fax number giving [phone] Will fax over items Luz Elena [employer] maya documented in this encounter [facility] 07-21-2023 Note HNO ID: [id number] Author: Lex Posada RN Service: ? Author Type: Registered Nurse Type: Progress Notes Filed: 07/21/2023 4:45 PM Note Text: CDM Telephonic Outreach Provider Action/FYI CDM: CHF, Asthma Called Pt, unable to leave?a message to verify symptom status and needs Contacted for: Routine Telephonic Outreach Contact made with patient: No, unable to leave message. Will reattempt call Lex Posada RN July 21, 2023 4:42 PM [facility] 07-21-2023 History of Present illness Narrative CDM Telephonic Outreach Provider Action/FYI CDM: CHF, Asthma Called Pt, unable to leave?a message to verify symptom status and needs Contacted for: Routine Telephonic Outreach Contact made with patient: No, unable to leave message. Will reattempt call Lex Posada RN July 21, 2023 4:42 PM CDM Telephonic Outreach Provider Action/FYI CDM: CHF, Asthma Called Pt, unable to leave?a message to verify symptom status and needs Contacted for: Routine Telephonic Outreach Contact made with patient: No, unable to leave message. Will reattempt call Lex Posada RN July 20, 2023 10:34 AM documented in this encounter [facility] 07-20-2023 Note Patient Outreach (AM [facility]) STEPH BAUMANN ([id number]) 1950 Date Time Provider Department 07/20/[place] [facility] [place] visit today, we recorded the following information about you: Lex Posada RN 07/21/2023 4:45 PM Signed CDM Telephonic Outreach Provider Action/FYI CDM: CHF, Asthma Called Pt, unable to leave?a message to verify symptom status and needs Contacted for: Routine Telephonic Outreach Contact made with patient: No, unable to leave message. Will reattempt call Lex Posada RN July 20, 2023 10:34 AM Lex Posada RN 07/21/2023 4:45 PM Signed [facility] Telephonic Outreach Provider Action/FYI CDM: CHF, Asthma Called Pt, unable to leave?a message to verify symptom status and needs Contacted for: Routine Telephonic Outreach Contact made with patient: No, unable to leave message. Will reattempt call Lex Posada RN July 21, 2023 4:42 PM Allergies As of Date: 07/20/2023 Noted Allergy Reaction METFORMIN 12/12/2020 6 - Diarrhea Comments: Even low dose caused diarrhea NORCO (HYDROCODONE-ACETAMINOPHEN) 01/09/2019 5 - Intolerance Comments: Hallucination Date Reviewed: 04/12/2023 Reviewed by: Lashonda Moore LPN - Fully Assessed Reason for Visit: Community Monitoring Outreach [Other] Prescriptions as of 07/21/2023 - traMADol (ULTRAM) 50 mg tablet Take 50 mg by mouth every 6 hours as needed for pain. - spironolactone (ALDACTONE) 25 mg tablet Take 25 mg by mouth once daily. - calcium carbonate (CALCIUM 300 ORAL) Take by mouth. - iron ps complex/B12/folic acid (FERREX 150 FORTE ORAL) Take by mouth. - carvedilol (COREG) 3.125 mg tablet Take 1 tablet by mouth twice daily. - ondansetron orally disintegrating (ZOFRAN ODT) 4 mg disintegrating tablet Take 1 tablet by mouth every 8 hours as needed for nausea/vomiting. - baclofen (LIORESAL) 20 mg tablet Take 20 mg by mouth three times daily. - apixaban (ELIQUIS) 5 mg tab(s) Take 1 tablet by mouth twice daily. - bumetanide (BUMEX) 1 mg tablet Take 1 tablet by mouth once daily. - lisinopril (ZESTRIL) 40 mg tablet Take 1 tablet by mouth once daily. - insulin glargine (BASAGLAR KWIKPEN U-100 INSULIN) 100 unit/mL (3 mL) Inject 27 Units subcutaneously daily at bedtime. Adjust dose as directed - carbidopa-levodopa (SINEMET 25-100) 25-100 mg per tablet Take 1 tablet by mouth three times daily. - loratadine (CLARITIN) 10 mg tablet Take 1 tablet by mouth once daily as needed. - omeprazole (PRILOSEC) 20 mg capsule Take 1 capsule by mouth twice daily. - tamsulosin (FLOMAX) 0.4 mg TAKE 1 CAPSULE BY MOUTH AT BEDTIME - budesonide-formoterol (SYMBICORT) 80-4.5 mcg/actuation inhaler Inhale 2 Puffs as instructed twice daily. - fluticasone-vilanterol (BREO ELLIPTA) 100-25 mcg/dose inhaler Inhale 1 Inhalation as instructed once daily. - bicalutamide (CASODEX) 50 mg tablet Take 50 mg by mouth once daily. - blood sugar diagnostic (BLOOD GLUCOSE TEST) test strip Test Two times a day. Insulin Dep? Yes E11.9 DM 2 - Lancets lancets Use as instructed to check blood sugar twice daily .Insulin Dep? Yes E11.9 DM 2 - insulin needles, DISPOSABLE, (PEN NEEDLE) 31 gauge x 5/16 Use one needle per dose. One per day. DX E11.9 Insulin Yes - albuterol HFA (VENTOLIN HFA) 90 mcg/actuation inhaler Inhale 2 Puffs as instructed every 6 hours as needed for wheezing/shortness of breath. - nitroglycerin sublingual (NITROQUICK) 0.4 mg SL tablet Dissolve 1 tablet under the tongue every 5 minutes as needed for Chest Pain. - COMPOUNDED PRESCRIPTION Four point cane Dx: Z86.73, R53.1 - CPAP BiPAP @ 9/13 cm of water with humidification. lifetime supplies. Dx ALBINO - cyanocobalamin (VITAMIN B-12) 1,000 mcg tab Take 1,000 mcg by mouth once daily. - Multivitamin ORAL capsule Take 1 capsule by mouth once daily. Problem List As Of Date 07/20/2023 Noted Resolved Brain tumor (HCC) [D49.6] 12/31/2013 Atrial fibrillation status post cardioversion (*12/31/2013 Cerebral embolism with cerebral infarction (HCC*12/31/2013 Uncontrolled type 2 diabetes mellitus without c*12/31/2013 10/07/2017 Impotence of organic origin [N52.9] 12/31/2013 Obesity, unspecified [E66.9] 12/31/2013 07/29/2022 Pure hypercholesterolemia [E78.00] 12/31/2013 Other constipation [K59.09] 12/31/2013 Special screening for malignant neoplasms, colo*12/31/2013 Debility, unspecified [R53.81] 12/31/2013 Essential and other specified forms of tremor [*12/31/2013 Esophageal reflux [K21.9] 12/31/2013 Essential hypertension, benign [I10] 12/31/2013 Unspecified late effects of cerebrovascular dis*12/31/2013 Apnea [R06.81] 12/31/2013 08/11/2016 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 [facility] 07-20-2023 Note HNO ID: [id number] Author: Lex Posada RN Service: ? Author Type: Registered Nurse Type: Progress Notes Filed: 07/21/2023 4:45 PM Note Text: CDM Telephonic Outreach Provider Action/FYI CDM: CHF, Asthma Called Pt, unable to leave?a message to verify symptom status and needs Contacted for: Routine Telephonic Outreach Contact made with patient: No, unable to leave message. Will reattempt call Lex Posada RN July 20, 2023 10:34 AM [facility] 06-28-2023 Note HNO ID: [id number] Author: Lex Posada RN Service: ? Author Type: Registered Nurse Type: Progress Notes Filed: 06/28/2023 11:18 AM Note Text: CDM Telephonic Outreach Provider Action/FYI CDM: CHF, Asthma Called Pt, unable to leave?a message to verify symptom status and needs Contacted for: Routine Telephonic Outreach Contact made with patient: No, unable to leave message. Will reattempt call Lex Posada RN June 28, 2023 11:16 AM [facility] 06-28-2023 History of Present illness Narrative CDM Telephonic Outreach Provider Action/FYI CDM: CHF, Asthma Called Pt, unable to leave?a message to verify symptom status and needs Contacted for: Routine Telephonic Outreach Contact made with patient: No, unable to leave message. Will reattempt call Lex Posada RN June 28, 2023 11:16 AM CDM Telephonic Outreach Provider Action/FYI CDM: CHF, Asthma Called Pt, unable to leave?a message to verify symptom status and needs Contacted for: Routine Telephonic Outreach Contact made with patient: No, unable to leave message. Will reattempt call Lex Posada RN June 27, 2023 12:19 PM documented in this encounter [facility] 06-27-2023 Note HNO ID: [id number] Author: Lex Posada RN Service: ? Author Type: Registered Nurse Type: Progress Notes Filed: 06/28/2023 11:18 AM Note Text: CDM Telephonic Outreach Provider Action/FYI CDM: CHF, Asthma Called Pt, unable to leave?a message to verify symptom status and needs Contacted for: Routine Telephonic Outreach Contact made with patient: No, unable to leave message. Will reattempt call Lex Posada RN June 27, 2023 12:19 PM [facility] 06-27-2023 Note Patient Outreach (AM [facility]) STEPH BAUMANN ([id number]) 1950 M Date Time Provider Department 06/27/23 [place] [facility] [place] your visit today, we recorded the following information about you: Lex Posada RN 06/28/2023 11:18 AM Signed CDM Telephonic Outreach Provider Action/FYI CDM: CHF, Asthma Called Pt, unable to leave?a message to verify symptom status and needs Contacted for: Routine Telephonic Outreach Contact made with patient: No, unable to leave message. Will reattempt call Lex Posada RN June 27, 2023 12:19 PM Lex Posada RN 06/28/2023 11:18 AM Signed CDM Telephonic Outreach Provider Action/FYI CDM: CHF, Asthma Called Pt, unable to leave?a message to verify symptom status and needs Contacted for: Routine Telephonic Outreach Contact made with patient: No, unable to leave message. Will reattempt call Lex Posada RN June 28, 2023 11:16 AM Allergies As of Date: 06/27/2023 Noted Allergy Reaction METFORMIN 12/12/2020 6 - Diarrhea Comments: Even low dose caused diarrhea NORCO (HYDROCODONE-ACETAMINOPHEN) 01/09/2019 5 - Intolerance Comments: Hallucination Date Reviewed: 04/12/2023 Reviewed by: Lashonda Moore LPN - Fully Assessed Reason for Visit: Community Monitoring Outreach [Other] Prescriptions as of 06/28/2023 - traMADol (ULTRAM) 50 mg tablet Take 50 mg by mouth every 6 hours as needed for pain. - spironolactone (ALDACTONE) 25 mg tablet Take 25 mg by mouth once daily. - calcium carbonate (CALCIUM 300 ORAL) Take by mouth. - iron ps complex/B12/folic acid (FERREX 150 FORTE ORAL) Take by mouth. - carvedilol (COREG) 3.125 mg tablet Take 1 tablet by mouth twice daily. - ondansetron orally disintegrating (ZOFRAN ODT) 4 mg disintegrating tablet Take 1 tablet by mouth every 8 hours as needed for nausea/vomiting. - baclofen (LIORESAL) 20 mg tablet Take 20 mg by mouth three times daily. - apixaban (ELIQUIS) 5 mg tab(s) Take 1 tablet by mouth twice daily. - bumetanide (BUMEX) 1 mg tablet Take 1 tablet by mouth once daily. - lisinopril (ZESTRIL) 40 mg tablet Take 1 tablet by mouth once daily. - insulin glargine (BASAGLAR KWIKPEN U-100 INSULIN) 100 unit/mL (3 mL) Inject 27 Units subcutaneously daily at bedtime. Adjust dose as directed - carbidopa-levodopa (SINEMET 25-100) 25-100 mg per tablet Take 1 tablet by mouth three times daily. - loratadine (CLARITIN) 10 mg tablet Take 1 tablet by mouth once daily as needed. - omeprazole (PRILOSEC) 20 mg capsule Take 1 capsule by mouth twice daily. - tamsulosin (FLOMAX) 0.4 mg TAKE 1 CAPSULE BY MOUTH AT BEDTIME - budesonide-formoterol (SYMBICORT) 80-4.5 mcg/actuation inhaler Inhale 2 Puffs as instructed twice daily. - fluticasone-vilanterol (BREO ELLIPTA) 100-25 mcg/dose inhaler Inhale 1 Inhalation as instructed once daily. - bicalutamide (CASODEX) 50 mg tablet Take 50 mg by mouth once daily. - blood sugar diagnostic (BLOOD GLUCOSE TEST) test strip Test Two times a day. Insulin Dep? Yes E11.9 DM 2 - Lancets lancets Use as instructed to check blood sugar twice daily .Insulin Dep? Yes E11.9 DM 2 - insulin needles, DISPOSABLE, (PEN NEEDLE) 31 gauge x 5/16 Use one needle per dose. One per day. DX E11.9 Insulin Yes - albuterol HFA (VENTOLIN HFA) 90 mcg/actuation inhaler Inhale 2 Puffs as instructed every 6 hours as needed for wheezing/shortness of breath. - nitroglycerin sublingual (NITROQUICK) 0.4 mg SL tablet Dissolve 1 tablet under the tongue every 5 minutes as needed for Chest Pain. - COMPOUNDED PRESCRIPTION Four point cane Dx: Z86.73, R53.1 - CPAP BiPAP @ 9/13 cm of water with humidification. lifetime supplies. Dx ALBINO - cyanocobalamin (VITAMIN B-12) 1,000 mcg tab Take 1,000 mcg by mouth once daily. - Multivitamin ORAL capsule Take 1 capsule by mouth once daily. Problem List As Of Date 06/27/2023 Noted Resolved Brain tumor (HCC) [D49.6] 12/31/2013 Atrial fibrillation status post cardioversion (*12/31/2013 Cerebral embolism with cerebral infarction (HCC*12/31/2013 Uncontrolled type 2 diabetes mellitus without c*12/31/2013 10/07/2017 Impotence of organic origin [N52.9] 12/31/2013 Obesity, unspecified [E66.9] 12/31/2013 07/29/2022 Pure hypercholesterolemia [E78.00] 12/31/2013 Other constipation [K59.09] 12/31/2013 Special screening for malignant neoplasms, colo*12/31/2013 Debility, unspecified [R53.81] 12/31/2013 Essential and other specified forms of tremor [*12/31/2013 Esophageal reflux [K21.9] 12/31/2013 Essential hypertension, benign [I10] 12/31/2013 Unspecified late effects of cerebrovascular dis*12/31/2013 Apnea [R06.81] 12/31/2013 08/11/2016 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 [facility] 05-24-2023 Note HNO ID: [id number] Author: Lex Posada RN Service: ? Author Type: Registered Nurse Type: Progress Notes Filed: 05/24/2023 11:09 AM Note Text: CDM Telephonic Outreach Provider Action/FYI CDM: CHF, Asthma Left a message, Instructed to call PCP with any symptom or condition changes Contacted for: Routine Telephonic Outreach Contact made with patient: No, left message. Lex Posada RN May 24, 2023 11:07 AM [facility] 05-23-2023 Note HNO ID: [id number] Author: Lex Posada RN Service: ? Author Type: Registered Nurse Type: Progress Notes Filed: 05/24/2023 11:09 AM Note Text: CDM Telephonic Outreach Provider Action/FYI CDM: CHF, Asthma Called Pt to verify symptoms and needs, line was busy, unable to leave a message. Contacted for: Routine Telephonic Outreach Contact made with patient: No, unable to leave message. Will reattempt call Lex Posada RN May 23, 2023 1:24 PM [facility] 05-23-2023 Note Patient Outreach (AM BCM[facility]) STEPH BAUMANN ([id number]) 1950 Date Time Provider Department 05/23/23 LEX POSADA During your visit today, we recorded the following information about you: Lex Posada RN 05/24/2023 11:09 AM Signed [facility] Telephonic Outreach Provider Action/FYI CDM: CHF, Asthma Called Pt to verify symptoms and needs, line was busy, unable to leave a message. Contacted for: Routine Telephonic Outreach Contact made with patient: No, unable to leave message. Will reattempt call Lex Posada RN May 23, 2023 1:24 PM Lex Posada RN 05/24/2023 11:09 AM Signed [facility]M Telephonic Outreach Provider Action/FYI CDM: CHF, Asthma Left a message, Instructed to call PCP with any symptom or condition changes Contacted for: Routine Telephonic Outreach Contact made with patient: No, left message. Lex Posada RN May 24, 2023 11:07 AM Allergies As of Date: 05/23/2023 Noted Allergy Reaction METFORMIN 12/12/2020 6 - Diarrhea Comments: Even low dose caused diarrhea NORCO (HYDROCODONE-ACETAMINOPHEN) 01/09/2019 5 - Intolerance Comments: Hallucination Date Reviewed: 04/12/2023 Reviewed by: Lashonda Moore LPN - Fully Assessed Reason for Visit: Community Monitoring Outreach [Other] Prescriptions as of 05/24/2023 - traMADol (ULTRAM) 50 mg tablet Take 50 mg by mouth every 6 hours as needed for pain. - spironolactone (ALDACTONE) 25 mg tablet Take 25 mg by mouth once daily. - calcium carbonate (CALCIUM 300 ORAL) Take by mouth. - iron ps complex/B12/folic acid (FERREX 150 FORTE ORAL) Take by mouth. - carvedilol (COREG) 3.125 mg tablet Take 1 tablet by mouth twice daily. - ondansetron orally disintegrating (ZOFRAN ODT) 4 mg disintegrating tablet Take 1 tablet by mouth every 8 hours as needed for nausea/vomiting. - baclofen (LIORESAL) 20 mg tablet Take 20 mg by mouth three times daily. - apixaban (ELIQUIS) 5 mg tab(s) Take 1 tablet by mouth twice daily. - bumetanide (BUMEX) 1 mg tablet Take 1 tablet by mouth once daily. - lisinopril (ZESTRIL) 40 mg tablet Take 1 tablet by mouth once daily. - insulin glargine (BASAGLAR KWIKPEN U-100 INSULIN) 100 unit/mL (3 mL) Inject 27 Units subcutaneously daily at bedtime. Adjust dose as directed - carbidopa-levodopa (SINEMET 25-100) 25-100 mg per tablet Take 1 tablet by mouth three times daily. - loratadine (CLARITIN) 10 mg tablet Take 1 tablet by mouth once daily as needed. - omeprazole (PRILOSEC) 20 mg capsule Take 1 capsule by mouth twice daily. - tamsulosin (FLOMAX) 0.4 mg TAKE 1 CAPSULE BY MOUTH AT BEDTIME - budesonide-formoterol (SYMBICORT) 80-4.5 mcg/actuation inhaler Inhale 2 Puffs as instructed twice daily. - fluticasone-vilanterol (BREO ELLIPTA) 100-25 mcg/dose inhaler Inhale 1 Inhalation as instructed once daily. - bicalutamide (CASODEX) 50 mg tablet Take 50 mg by mouth once daily. - blood sugar diagnostic (BLOOD GLUCOSE TEST) test strip Test Two times a day. Insulin Dep? Yes E11.9 DM 2 - Lancets lancets Use as instructed to check blood sugar twice daily .Insulin Dep? Yes E11.9 DM 2 - insulin needles, DISPOSABLE, (PEN NEEDLE) 31 gauge x 5/16 Use one needle per dose. One per day. DX E11.9 Insulin Yes - albuterol HFA (VENTOLIN HFA) 90 mcg/actuation inhaler Inhale 2 Puffs as instructed every 6 hours as needed for wheezing/shortness of breath. - nitroglycerin sublingual (NITROQUICK) 0.4 mg SL tablet Dissolve 1 tablet under the tongue every 5 minutes as needed for Chest Pain. - COMPOUNDED PRESCRIPTION Four point cane Dx: Z86.73, R53.1 - CPAP BiPAP @ 9/13 cm of water with humidification. lifetime supplies. Dx ALBINO - cyanocobalamin (VITAMIN B-12) 1,000 mcg tab Take 1,000 mcg by mouth once daily. - Multivitamin ORAL capsule Take 1 capsule by mouth once daily. Problem List As Of Date 05/23/2023 Noted Resolved Brain tumor (HCC) [D49.6] 12/31/2013 Atrial fibrillation status post cardioversion (*12/31/2013 Cerebral embolism with cerebral infarction (HCC*12/31/2013 Uncontrolled type 2 diabetes mellitus without c*12/31/2013 10/07/2017 Impotence of organic origin [N52.9] 12/31/2013 Obesity, unspecified [E66.9] 12/31/2013 07/29/2022 Pure hypercholesterolemia [E78.00] 12/31/2013 Other constipation [K59.09] 12/31/2013 Special screening for malignant neoplasms, colo*12/31/2013 Debility, unspecified [R53.81] 12/31/2013 Essential and other specified forms of tremor [*12/31/2013 Esophageal reflux [K21.9] 12/31/2013 Essential hypertension, benign [I10] 12/31/2013 Unspecified late effects of cerebrovascular dis*12/31/2013 Apnea [R06.81] 12/31/2013 08/11/2016 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 [facility] 04-22-2023 Miscellaneous Notes 04-22....Patient is currently in rehab,Cancelled his appointment on 05-03, will call to r/s later any questions call Atif Ferraro [phone] [place] documented in this encounter [facility] 04-21-2023 Note HNO ID: [id number] Author: Lex Posada RN Service: ? Author Type: Registered Nurse Type: Progress Notes Filed: 04/21/2023 7:07 PM Note Text: CDM Telephonic Outreach Provider Action/FYI CDM: CHF, Asthma Called Pt, unable to leave a message to verify symptom status and needs. Contacted for: Routine Telephonic Outreach Contact made with patient: No, unable to leave message. Will reattempt call Lex Posada RN April 21, 2023 7:05 PM [facility] 04-21-2023 History of Present illness Narrative CDM Telephonic Outreach Provider Action/FYI CDM: CHF, Asthma Called Pt, unable to leave a message to verify symptom status and needs. Contacted for: Routine Telephonic Outreach Contact made with patient: No, unable to leave message. Will reattempt call Lex Posada RN April 21, 2023 7:05 PM CDM Telephonic Outreach Provider Action/FYI CDM: CHF, Asthma Called Pt, unable to leave a message to verify symptom status and needs. Contacted for: Routine Telephonic Outreach Contact made with patient: No, unable to leave message. Will reattempt call Lex Posada RN April 20, 2023 2:37 PM documented in this encounter [facility] 04-20-2023 Note HNO ID: [id number] Author: Lex Posada RN Service: ? Author Type: Registered Nurse Type: Progress Notes Filed: 04/21/2023 7:07 PM Note Text: CDM Telephonic Outreach Provider Action/FYI CDM: CHF, Asthma Called Pt, unable to leave a message to verify symptom status and needs. Contacted for: Routine Telephonic Outreach Contact made with patient: No, unable to leave message. Will reattempt call Lex Posada RN April 20, 2023 2:37 PM [facility] 04-20-2023 Note Patient Outreach (AM BCM[facility]) STEPH BAUMANN ([id number]) 1950 Date Time Provider Department 04/20/23 LEX POSADA During your visit today, we recorded the following information about you: Lex Posada RN 04/21/2023 7:07 PM Signed [facility] Telephonic Outreach Provider Action/FYI CDM: CHF, Asthma Called Pt, unable to leave a message to verify symptom status and needs. Contacted for: Routine Telephonic Outreach Contact made with patient: No, unable to leave message. Will reattempt call Lex Posada RN April 20, 2023 2:37 PM Lex Posada RN 04/21/2023 7:07 PM Signed [facility] Telephonic Outreach Provider Action/FYI CDM: CHF, Asthma Called Pt, unable to leave a message to verify symptom status and needs. Contacted for: Routine Telephonic Outreach Contact made with patient: No, unable to leave message. Will reattempt call Lex Posada RN April 21, 2023 7:05 PM Allergies As of Date: 04/20/2023 Noted Allergy Reaction METFORMIN 12/12/2020 6 - Diarrhea Comments: Even low dose caused diarrhea NORCO (HYDROCODONE-ACETAMINOPHEN) 01/09/2019 5 - Intolerance Comments: Hallucination Date Reviewed: 04/12/2023 Reviewed by: Lashonda Moore LPN - Fully Assessed Reason for Visit: Community Monitoring Outreach [Other] Prescriptions as of 04/21/2023 - traMADol (ULTRAM) 50 mg tablet Take 50 mg by mouth every 6 hours as needed for pain. - spironolactone (ALDACTONE) 25 mg tablet Take 25 mg by mouth once daily. - calcium carbonate (CALCIUM 300 ORAL) Take by mouth. - iron ps complex/B12/folic acid (FERREX 150 FORTE ORAL) Take by mouth. - carvedilol (COREG) 3.125 mg tablet Take 1 tablet by mouth twice daily. - ondansetron orally disintegrating (ZOFRAN ODT) 4 mg disintegrating tablet Take 1 tablet by mouth every 8 hours as needed for nausea/vomiting. - baclofen (LIORESAL) 20 mg tablet Take 20 mg by mouth three times daily. - apixaban (ELIQUIS) 5 mg tab(s) Take 1 tablet by mouth twice daily. - bumetanide (BUMEX) 1 mg tablet Take 1 tablet by mouth once daily. - lisinopril (ZESTRIL) 40 mg tablet Take 1 tablet by mouth once daily. - insulin glargine (BASAGLAR KWIKPEN U-100 INSULIN) 100 unit/mL (3 mL) Inject 27 Units subcutaneously daily at bedtime. Adjust dose as directed - carbidopa-levodopa (SINEMET 25-100) 25-100 mg per tablet Take 1 tablet by mouth three times daily. - loratadine (CLARITIN) 10 mg tablet Take 1 tablet by mouth once daily as needed. - omeprazole (PRILOSEC) 20 mg capsule Take 1 capsule by mouth twice daily. - tamsulosin (FLOMAX) 0.4 mg TAKE 1 CAPSULE BY MOUTH AT BEDTIME - budesonide-formoterol (SYMBICORT) 80-4.5 mcg/actuation inhaler Inhale 2 Puffs as instructed twice daily. - fluticasone-vilanterol (BREO ELLIPTA) 100-25 mcg/dose inhaler Inhale 1 Inhalation as instructed once daily. - bicalutamide (CASODEX) 50 mg tablet Take 50 mg by mouth once daily. - blood sugar diagnostic (BLOOD GLUCOSE TEST) test strip Test Two times a day. Insulin Dep? Yes E11.9 DM 2 - Lancets lancets Use as instructed to check blood sugar twice daily .Insulin Dep? Yes E11.9 DM 2 - insulin needles, DISPOSABLE, (PEN NEEDLE) 31 gauge x 5/16 Use one needle per dose. One per day. DX E11.9 Insulin Yes - albuterol HFA (VENTOLIN HFA) 90 mcg/actuation inhaler Inhale 2 Puffs as instructed every 6 hours as needed for wheezing/shortness of breath. - nitroglycerin sublingual (NITROQUICK) 0.4 mg SL tablet Dissolve 1 tablet under the tongue every 5 minutes as needed for Chest Pain. - COMPOUNDED PRESCRIPTION Four point cane Dx: Z86.73, R53.1 - CPAP BiPAP @ 9/13 cm of water with humidification. lifetime supplies. Dx ALBINO - cyanocobalamin (VITAMIN B-12) 1,000 mcg tab Take 1,000 mcg by mouth once daily. - Multivitamin ORAL capsule Take 1 capsule by mouth once daily. Problem List As Of Date 04/20/2023 Noted Resolved Brain tumor (HCC) [D49.6] 12/31/2013 Atrial fibrillation status post cardioversion (*12/31/2013 Cerebral embolism with cerebral infarction (HCC*12/31/2013 Uncontrolled type 2 diabetes mellitus without c*12/31/2013 10/07/2017 Impotence of organic origin [N52.9] 12/31/2013 Obesity, unspecified [E66.9] 12/31/2013 07/29/2022 Pure hypercholesterolemia [E78.00] 12/31/2013 Other constipation [K59.09] 12/31/2013 Special screening for malignant neoplasms, colo*12/31/2013 Debility, unspecified [R53.81] 12/31/2013 Essential and other specified forms of tremor [*12/31/2013 Esophageal reflux [K21.9] 12/31/2013 Essential hypertension, benign [I10] 12/31/2013 Unspecified late effects of cerebrovascular dis*12/31/2013 Apnea [R06.81] 12/31/2013 08/11/2016 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 [facility] 04-13-2023 Miscellaneous Notes Spoke with Atif and explained below. Atif voiced her understanding and will discuss with patient. States will see neurologist today and discuss with them her concerns too. This Sw has no other recommendations and defers to KEYSHAWN Castillo judgement regarding ED evaluation. If caregiver is leaving out of state and feels patient is not safe alone then he needs to go to ER for evaluation and emergency placement. Even with PT/OT coming in it sounds like there are concerns he needs a higher level of care than that. Myranda, any other suggestions/thoughts? Patient's intermittent caregiver Atif Ferraro calling on behalf of patient and asking for PCP Office to advise. Patient was seen by Olga Styles COMMUNITY SERVICE COORDINATOR yesterday due to hypotension and other concerns. Pt takes Coreg 3.125 mg twice daily and was advised to hold last night's dose. Atif states dose was held and pt's BP last night was 85/57. This morning pt's BP was 100/72. Atif states she held pt's morning dose of Coreg as well as his Lisinopril 40 mg. Atif will be leaving to go back out of state tomorrow and feels patient is unsafe to be left home alone. Pt has no family and no one to help care for him. Pt has [facility] PT and OT ordered but has not come yet. Per Atif, Physical Therapy is coming today to evaluate him at 11:30am, unsure of when OT will be coming. Atif states pt has Life Alert and a walker. Atif states pt may be open to going to SNF for rehab, but not sure if he will. Atif aware that Olga is out of office today and message would be sent to PCP office for review. Please call Atif at [phone]. documented in this encounter [facility] 04-12-2023 Note HNO ID: [id number] Author: Olga Styles APRN.COMMUNITY SERVICE COORDINATOR Service: ? Author Type: Nurse Specialist Type: Progress Notes Filed: 04/12/2023 3:31 PM Note Text: SUBJECTIVE: DILATED RETINAL EXAM due on 08/23/2017 URINE ALBUMIN:CREATININE RATIO due on 11/06/2020 LDL CHOLESTEROL due on 03/26/2022 HPI Stpeh Baumann is a 72 year old male. Presents for hospital follow up visit. 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 Pure Hypercholesterolemia Other Constipation Special Screening for Malignant Neoplasms, Colon Debility, Unspecified Essential and Other Specified Forms of Tremor Esophageal Reflux Essential Hypertension, Benign Unspecified Late Effects of Cerebrovascular Disease Post Traumatic Seizures (Hcc) Rash and Other Nonspecific Skin Eruption Abdominal Pain, Unspecified Site Seizure Disorder (Hcc) History of Cva (Cerebrovascular Accident) Sleep Apnea Chronic Anticoagulation Pulmonary Hypertension, Secondary Typical Atrial Flutter (Hcc) Albino (Obstructive Sleep Apnea) H/O: Stroke H/O Brain Tumor Type 2 Diabetes Mellitus With Other Specified Complication, With Long-Term Current Use of Insulin (Hcc) Stasis Edema of Both Lower Extremities Chronic Diastolic Chf (Congestive Heart Failure) (Hcc) Cirrhosis of Liver With Ascites (Hcc) Hypoalbuminemia Mild Intermittent Asthma Without Complication Status Post Biventricular Pacemaker On Continuous Oral Anticoagulation History of St Elevation Myocardial Infarction (Stemi) Benign Prostatic Hyperplasia With Weak Urinary Stream Prostate Cancer (Hcc) Hypertensive Heart Disease With Chronic Diastolic Congestive Heart Failure (Hcc) Peripheral Arterial Disease (Hcc) Chronic Kidney Disease, Stage 3a (Hcc) Platelets Decreased (Hcc) Parkinson's Disease (Hcc) Acute and Chronic Respiratory Failure With Hypoxia (Hcc) HPI excerpted from previous visits: Presents with SO who helps with providing history today. Today reports he is feeling well overall. Following with [facility] re: CAD s/p STEMI, diastolic and systolic CHF, AF, BiVICD. He was seen by Dr. Miller 01/06/2022 for large right inguinal hernia which is reducible. He is in need of repair of inguinal hernia before undergoing radiation for prostate cancer. Open inguinal hernia repair was discussed as least likely to cause complications due to his cirrhosis. Notes indicate he would like to stop Eliquis 2 days prior to surgery when it is completed. History of cirrhosis, followed by Dr Loredo. Note yesterday that very good prognosis from liver perspective, okay for planned radiation therapy from a liver perspective is noted.Notes cirrhosis symptoms seem currently controlled. Notes abdominal girth well controlled, limited edema in lower extremities. Notes significant urinary output, some incontinence. States he has not taken spironolactone for couple months due to feeling it was too much diuretic for him. Currently taking Bumex 3 mg daily. Recently seen in urology by ANDREA Mazariegos. Noted that he was having post void residual. PSA was elevated. He was referred to urologist for biopsy. Noted he was unable to travel to [place] or [place] so he was instead seen at [facility] by Dr. Abreu. Diagnosed with prostate cancer, treatment with radiation planned; has begun the process for this; procedure earlier today at [facility]. Notes he had procedure yesterday at [facility] for prostate cancer. Without report of headache, chest pain, palpitations, dyspnea, peripheral edema, orthopnea, fatigue and PND. Occasional positional lightheadedness that passes in seconds. No report of seizures today. DIABETES MELLITUS: He notes has been taking 27 units of insulin at bedtime. Without report of excessive thirst or increased frequency of urination, chest pain or dyspnea , numbness, tingling or pain in extremities, new or unusual visual symptoms, low sugar/hypoglycemic reactions, weight loss/gain and bowel changes/loose stools. Patient's last HgA1C was Today notes he is feeling improved. Weight has been stable. No lower extremity edema increased abdominal girth or leg swelling. No shortness of breath. Notes heart rate at home has been 65-73 since last seen, blood pressures at home 106/84-130 1/89. Weight has been 1 54-1 64 by home scales. Blood sugars have been 173 to 307 since last here. Notes he did increase his dose of insulin. He was admitted to [facility] on April 10, 2023 through April 12, 2023 for adult failure to thrive. He presented with report of getting weaker and more debilitated at home and also feeling dehydrated. EMS was called for transport and thought he was confused initially. CT of the brain was completed and showed no acute pathology. PT and OT was (more content not included)... [facility] 04-12-2023 Miscellaneous Notes Patient seen today Spoke with Jasmyne, an nurse with [facility] and gave her providers message and verbalized understanding. Attempted to contact patient but no answer. Left message for patient to call office and ask to speak to a nurse about scheduling a hospital f/u with REHAN Villavicencio CNP next week. OK for [facility]. Schedule hospital follow up appointment. Jasmyne, an nurse with [facility] , calls for VO for OT and PT. Pt is supposed to be dc'd from [facility] on 04/12. Call Jasmyne with 's VO. Reina Mcgee LPN documented in this encounter [facility] 04-12-2023 Instructions Olga Styles APRN.REHAN - 04/12/2023 2:45 PM EDT Drink sufficient fluids and lie down if feeling weak or tired today. Do not take carvedilol this evening. Do not take lisinopril today if you have not already taken int. Check blood pressure daily and write down results. If systolic blood pressure (top number) is less than 100 hold blood pressure medications (lisinopril and carvedilol) If your systolic blood pressure is 100 or greater okay to take carvedilol at the lower dose -- carvedilol 3.125 mg twice daily Okay to continue with lisinopril 40 mg if systolic blood pressure is 100 or greater. Go to the emergency department for any severe or concerning symptoms documented in this encounter [facility] 04-12-2023 History of Present illness Narrative SUBJECTIVE: DILATED RETINAL EXAM due on 08/23/2017 URINE ALBUMIN:CREATININE RATIO due on 11/06/2020 LDL CHOLESTEROL due on 03/26/2022 HPI Steph Baumann is a 72 year old male. Presents for hospital follow up visit. 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 Pure Hypercholesterolemia Other Constipation Special Screening for Malignant Neoplasms, Colon Debility, Unspecified Essential and Other Specified Forms of Tremor Esophageal Reflux Essential Hypertension, Benign Unspecified Late Effects of Cerebrovascular Disease Post Traumatic Seizures (Hcc) Rash and Other Nonspecific Skin Eruption Abdominal Pain, Unspecified Site Seizure Disorder (Hcc) History of Cva (Cerebrovascular Accident) Sleep Apnea Chronic Anticoagulation Pulmonary Hypertension, Secondary Typical Atrial Flutter (Hcc) Albino (Obstructive Sleep Apnea) H/O: Stroke H/O Brain Tumor Type 2 Diabetes Mellitus With Other Specified Complication, With Long-Term Current Use of Insulin (Hcc) Stasis Edema of Both Lower Extremities Chronic Diastolic Chf (Congestive Heart Failure) (Hcc) Cirrhosis of Liver With Ascites (Hcc) Hypoalbuminemia Mild Intermittent Asthma Without Complication Status Post Biventricular Pacemaker On Continuous Oral Anticoagulation History of St Elevation Myocardial Infarction (Stemi) Benign Prostatic Hyperplasia With Weak Urinary Stream Prostate Cancer (Hcc) Hypertensive Heart Disease With Chronic Diastolic Congestive Heart Failure (Hcc) Peripheral Arterial Disease (Hcc) Chronic Kidney Disease, Stage 3a (Hcc) Platelets Decreased (Hcc) Parkinson's Disease (Hcc) Acute and Chronic Respiratory Failure With Hypoxia (Hcc) HPI excerpted from previous visits: Presents with SO who helps with providing history today. Today reports he is feeling well overall. Following with [facility] re: CAD s/p STEMI, diastolic and systolic CHF, AF, BiVICD. He was seen by Dr. Miller 01/06/2022 for large right inguinal hernia which is reducible. He is in need of repair of inguinal hernia before undergoing radiation for prostate cancer. Open inguinal hernia repair was discussed as least likely to cause complications due to his cirrhosis. Notes indicate he would like to stop Eliquis 2 days prior to surgery when it is completed. History of cirrhosis, followed by Dr Loredo. Note yesterday that very good prognosis from liver perspective, okay for planned radiation therapy from a liver perspective is noted.Notes cirrhosis symptoms seem currently controlled. Notes abdominal girth well controlled, limited edema in lower extremities. Notes significant urinary output, some incontinence. States he has not taken spironolactone for couple months due to feeling it was too much diuretic for him. Currently taking Bumex 3 mg daily. Recently seen in urology by ANDREA Mazariegos. Noted that he was having post void residual. PSA was elevated. He was referred to urologist for biopsy. Noted he was unable to travel to [place] or [place] so he was instead seen at [facility] by Dr. Abreu. Diagnosed with prostate cancer, treatment with radiation planned; has begun the process for this; procedure earlier today at [facility]. Notes he had procedure yesterday at [facility] for prostate cancer. Without report of headache, chest pain, palpitations, dyspnea, peripheral edema, orthopnea, fatigue and PND. Occasional positional lightheadedness that passes in seconds. No report of seizures today. DIABETES MELLITUS: He notes has been taking 27 units of insulin at bedtime. Without report of excessive thirst or increased frequency of urination, chest pain or dyspnea , numbness, tingling or pain in extremities, new or unusual visual symptoms, low sugar/hypoglycemic reactions, weight loss/gain and bowel changes/loose stools. Patient's last HgA1C was Today notes he is feeling improved. Weight has been stable. No lower extremity edema increased abdominal girth or leg swelling. No shortness of breath. Notes heart rate at home has been 65-73 since last seen, blood pressures at home 106/84-130 . Weight has been 1 54-1 64 by home scales. Blood sugars have been 173 to 307 since last here. Notes he did increase his dose of insulin. He was admitted to [facility] on April 10, 2023 through April 12, 2023 for adult failure to thrive. He presented with report of getting weaker and more debilitated at home and also feeling dehydrated. EMS was called for transport and thought he was confused initially. CT of the brain was completed and showed no acute pathology. PT and OT was consulted. Fall precautions were placed. He was placed in observation for failure to thrive with debility and weakness. He was treated with a liter of IV fluids. Notes indicate uneventful night after admission and review of systems otherwise negative.He was advised that he should go to rehab facility but declined and requested to be discharged to home with his girlfriend with home health care. He was discharged home in stable condition. Presents today with SO who states she will be with him for the next 2 days. Discharge from hospital today. He is so weak it takes 2 to stand him at the scale today. He is feeling nauseous and it is difficult for him to stay awake. Reports cardiology increased carvedilol from 3.125 to 6.25 mg Apr 04 2023. Continues on carbidopa levodopa 25-100 mg 3 times daily and baclofen 20 mg [address] Horton neurologist [facility]. He has a neurology appointment tomorrow, states may adjust medications at that visit. Home health care:[facility], to come out tomorrow Assistance at home: Yes Mobility: with walker, electric wheelchair Oral intake:Maintaining for now but nauseous Patient's last HgA1C was Hemoglobin A1C (%) Date Value 03/26/2021 9.6 12/11/2020 7.7 Hemoglobin A1C (POCT) (%) Date Value 03/23/2023 8.1 10/01/2022 7.6 ) Liver enzymes trending downward Review of Systems Constitutional: Positive for fatigue. Musculoskeletal: Positive for gait problem. Objective BP 83/57 Pulse 70 Resp 14 Wt 73.5 kg (162 lb) SpO2 99% BMI 23.24 kg/m Physical Exam Vitals and nursing note reviewed. Constitutional: Appearance: Normal appearance. HENT: Head: Normocephalic and atraumatic. Eyes: Conjunctiva/sclera: Conjunctivae normal. Neck: Vascular: No JVD. Cardiovascular: Rate and Rhythm: Normal rate and regular rhythm. Pulses: Normal pulses. Heart sounds: Normal heart sounds. Pulmonary: Effort: Pulmonary effort is normal. Breath sounds: Normal breath sounds. Abdominal: General: Bowel sounds are normal. Palpations: Abdomen is soft. Musculoskeletal: Right lower leg: No edema. Left lower leg: No edema. Skin: General: Skin is warm and dry. Neurological: Mental Status: He is alert. Mental status is at baseline. ALLERGIES Allergen Reactions Metformin Diarrhea Even low dose caused diarrhea [place] [Hydrocodone-* Intolerance Hallucination Medications traMADol (ULTRAM) 50 mg tablet Take 50 mg by mouth every 6 hours as needed for pain. spironolactone (ALDACTONE) 25 mg tablet Take 25 mg by mouth once daily. calcium carbonate (CALCIUM 300 ORAL) Take by mouth. iron ps complex/B12/folic acid (FERREX 150 FORTE ORAL) Take by mouth. baclofen (LIORESAL) 20 mg tablet Take 20 mg by mouth three times daily. apixaban (ELIQUIS) 5 mg tab(s) Take 1 tablet by mouth twice daily. bumetanide (BUMEX) 1 mg tablet Take 1 tablet by mouth once daily. lisinopril (ZESTRIL) 40 mg tablet Take 1 tablet by mouth once daily. insulin glargine (BASAGLAR KWIKPEN U-100 INSULIN) 100 unit/mL (3 mL) Inject 27 Units subcutaneously daily at bedtime. Adjust dose as directed carbidopa-levodopa (SINEMET 25-100) 25-100 mg per tablet Take 1 tablet by mouth three times daily. loratadine (CLARITIN) 10 mg tablet Take 1 tablet by mouth once daily as needed. omeprazole (PRILOSEC) 20 mg capsule Take 1 capsule by mouth twice daily. budesonide-formoterol (SYMBICORT) 80-4.5 mcg/actuation inhaler Inhale 2 Puffs as instructed twice daily. fluticasone-vilanterol (BREO ELLIPTA) 100-25 mcg/dose inhaler Inhale 1 Inhalation as instructed once daily. bicalutamide (CASODEX) 50 mg tablet Take 50 mg by mouth once daily. blood sugar diagnostic (BLOOD GLUCOSE TEST) test strip Test Two times a day. Insulin Dep? Yes E11.9 DM 2 Lancets lancets Use as instructed to check blood sugar twice daily .Insulin Dep? Yes E11.9 DM 2 insulin needles, DISPOSABLE, (PEN NEEDLE) 31 gauge x 5/16 Use one needle per dose. One per day. DX E11.9 Insulin Yes albuterol HFA (VENTOLIN HFA) 90 mcg/actuation inhaler Inhale 2 Puffs as instructed every 6 hours as needed for wheezing/shortness of breath. nitroglycerin sublingual (NITROQUICK) 0.4 mg SL tablet Dissolve 1 tablet under the tongue every 5 minutes as needed for Chest Pain. COMPOUNDED PRESCRIPTION Four point cane Dx: Z86.73, R53.1 CPAP BiPAP @ 9/13 cm of water with humidification. lifetime supplies. Dx ALBINO cyanocobalamin (VITAMIN B-12) 1,000 mcg tab Take 1,000 mcg by mouth once daily. Multivitamin ORAL capsule Take 1 capsule by mouth once daily. carvedilol (COREG) 3.125 mg tablet Take 1 tablet by mouth twice daily. tamsulosin (FLOMAX) 0.4 mg TAKE 1 CAPSULE BY MOUTH AT BEDTIME (Patient not taking: Reported on 04/12/2023) PAST MEDICAL HISTORY Diagnosis Date Atrial fibrillation (HCC) CVA 2010, attributed to atrial fibrillation. Warfarin since. Esophageal reflux Essential and other specified forms of tremor 12/31/2013 All my life. Essential hypertension, benign H/O brain tumor Benign, resected. H/O right and left heart catheterization H/O: stroke 2010 No functional residual. 04/13/2017. Hypercholesterolemia ICD (implantable cardioverter-defibrillator), biventricular, in situ 10/[address] Gonzáles ALBINO (obstructive sleep apnea) BiPAP, [facility] 07/09/2014. Consistently compliant 04/14/2017. TO Seizure disorder (HCC) Type II or unspecified type diabetes mellitus without mention of complication, uncontrolled Social History Tobacco Use Smoking status: Former Packs/day: 0.50 Years: 46.00 Pack years: 23.00 Types: Cigarettes Start date: 1967 Quit date: 07/20/2013 Years since quittin.7 Smokeless tobacco: Never Tobacco comments: Had smoked 40 years 1 PPD every 2 to 3 days (about 20 pack years) Substance Use Topics Alcohol use: No Drug use: No Comment: Remote drugs, quit 1994. Component Latest Ref Rng & Units 04/02/2020 12/11/2020 03/26/2021 10/08/2021 01/07/2022 WBC 3.70 - 11.00 k/uL 5.67 8.30 8.93 6.89 RBC 4.20 - 6.00 m/uL 5.11 4.85 4.35 3.75 (L) Hemoglobin 13.0 - 17.0 g/dL 11.9 (L) 13.4 14.0 11.7 (L) Hematocrit 39.0 - 51.0 % 41.0 43.3 41.3 36.0 (L) MCV 80.0 - 100.0 fL 80.2 89.3 94.9 96.0 MCH 26.0 - 34.0 pg 23.3 (L) 27.6 32.2 31.2 MCHC 30.5 - 36.0 g/dL 29.0 (L) 30.9 33.9 32.5 RDW-CV 11.5 - 15.0 % 22.7 (H) 21.5 (H) 12.5 13.1 Platelet Count 150 - 400 k/uL 161 147 (L) 140 (L) 138 (L) MPV 9.0 - 12.7 fL 11.1 11.5 11.3 11.9 Neut% % 71.7 81.5 Abs Neut (ANC) 1.45 - 7.50 k/uL 4.05 7.28 Lymph% % 10.6 8.8 Abs Lymph 1.00 - 4.00 k/uL 0.60 (L) 0.79 (L) Ada% % 12.7 6.7 Abs Ada <0.87 k/uL 0.72 0.60 Eosin% % 4.1 2.4 Abs Eosin <0.46 k/uL 0.23 0.21 Baso% % 0.9 0.6 Abs Baso <0.11 k/uL 0.05 0.05 Nucleated Reds 0 /100 WBC 0.0 0.0 Absolute nRBC <0.01 k/uL <0.01 <0.01 <0.01 <0.01 Diff Type Auto Diff Auto Diff Protein, Total 6.3 - 8.0 g/dL 7.2 7.8 8.2 (H) 7.4 Albumin 3.9 - 4.9 g/dL 4.2 4.0 3.9 4.0 Calcium 8.5 - 10.2 mg/dL 9.7 9.4 9.6 9.7 Bilirubin, Total 0.2 - 1.3 mg/dL 1.0 1.5 (H) 0.9 0.4 Alkaline Phosphatase 38 - 113 U/L 89 122 (H) 221 (H) 176 (H) AST 14 - 40 U/L 23 21 33 31 Glucose 74 - 99 mg/dL 125 (H) 125 (H) 182 (H) 287 (H) BUN 9 - 24 mg/dL 30 (H) 33 (H) 47 (H) 43 (H) Creatinine 0.73 - 1.22 mg/dL 1.28 (H) 1.33 (H) 1.09 2.03 (H) Sodium 136 - 144 mmol/L 142 141 137 140 Potassium 3.7 - 5.1 mmol/L 4.9 4.0 4.6 4.9 Chloride 97 - 105 mmol/L 106 (H) 106 (H) 103 102 CO2 22 - 30 mmol/L 23 24 24 27 Anion Gap 9 - 18 mmol/L 13 11 10 11 ALT 10 - 54 U/L 17 9 (L) 34 26 eGFR- >60 >60 >60 eGFR-All Other Races . 56 53 >60 eGFR >=60 mL/min/1.73m 35 (L) ASSESSMENT/PLAN: 1. Hypotension due to drugs - ICD9: 458.8, E947.9, ICD10: I95.2 (primary diagnosis) Suspect intolerance of increased dosing of carvedilol +/- treatment for Parkinson's. He will be seeing neurologist tomorrow. For this evening recommend not taking any blood pressure medications, drinking sufficient fluids and lying down when feeling fatigued or dizzy. Hold blood pressure medications for systolic blood pressure less than 100. He has had hypotension in the past related to diuretics so it may need to make an adjustment there as well. 2. Nausea - ICD9: 787.02, ICD10: R11.0 Zofran as needed 3. Adult failure to thrive - ICD9: 783.7, ICD10: R62.7 He was seen in observation at [facility]. Advised long-term facility at discharge however declined and discharged to home with home health care. Presents in clinic unable to stand without assistance and difficulty staying awake. He is hypotensive. 4. Type 2 diabetes mellitus with other specified complication, with long-term current use of insulin ([facility]) - ICD9: 250.80, V58.67, ICD10: E11.69, Z79.4 Has had improved control of late. 5. Paroxysmal atrial fibrillation ([facility]) - ICD9: 427.31, ICD10: I48.0 Followed by [facility]. On oral anticoagulation. 6. Chronic diastolic CHF (congestive heart failure) ([facility]) - ICD9: 428.32, 428.0, ICD10: I50.32 Followed by [facility], recent up titration of carvedilol from 3.125 twice daily to 6.25 twice daily. Appears he is intolerant of this, will reduce dose back down to 3.125 twice daily 7. Parkinson's disease ([facility]) - ICD9: 332.0, ICD10: G20 Being followed by neurologist Dr. Horton, has appointment tomorrow Advised: Drink sufficient fluids and lie down if feeling weak or tired today. Do not take carvedilol this evening. Do not take lisinopril today if you have not already taken int. Check blood pressure daily and write down results. If systolic blood pressure (top number) is less than 100 hold blood pressure medications (lisinopril and carvedilol) If your systolic blood pressure is 100 or greater okay to take carvedilol at the lower dose -- carvedilol 3.125 mg twice daily Okay to continue with lisinopril 40 mg if systolic blood pressure is 100 or greater. Go to the emergency department for any severe or concerning symptoms 1 -2 week follow up Olga Styles APRN.REHAN Endorse SO not leave unattended until feeling improved. Olga Styles APRN.CNS Medical Decision Making: Problems: Moderate: New problem with uncertain prognosis and Acute illness with systemic symptoms Risk: Moderate: Drug management Medical Decision Making Level: 4 - Moderate documented in this encounter [facility] 04-11-2023 Miscellaneous Notes Message left for Atif Ferraro (EC) to call to update concerning the letter being in Medical records to be picked up. Maribell Salinas LPN Printed letter--see if adequate Steph Baumann is calling Manuel Canales MD today to request Patient Request (Patient is going to the zoo with his fiber design engineer Atif Ferraro at the [facility] and she is in need of a letter for her to be able to take him free of charge to the zoo stating that he is disabled and needs her assistance and 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 )please advise [phone]. Patient has been identified by name and birthdate. Duration of symptoms: N/A Person calling: caregiver: atifmorro ferraro Call patient at: on cell [phone] (home) [phone] (cell) Was an appointment scheduled: No Closing statement: Results or non-symptom based questions: Thank you for calling [facility], your call will be returned within the next business day. Mckenna Deluna Pss documented in this encounter [facility] 04-11-2023 Miscellaneous Notes Faxed current med list to [facility] med/surg per request. Fax # [phone]. Confirmation received. documented in this encounter [facility] 03-24-2023 Note HNO ID: [id number] Author: Lex Posada RN Service: ? Author Type: Registered Nurse Type: Progress Notes Filed: 03/24/2023 4:04 PM Note Text: CDM Telephonic Outreach Provider Action/FYI CDM: CHF, Asthma Called Pt, unable to leave a message to verify symptom status and needs. Contacted for: Routine Telephonic Outreach Contact made with patient: No, unable to leave message. Will reattempt call Lex Posada RN March 24, 2023 4:03 PM [facility] 03-24-2023 Note Patient Outreach ([facility]) STEPH BAUMANN ([id number]) 1950 Date Time Provider Department 03/24/23 LEX POSADA During your visit today, we recorded the following information about you: Lex Posada RN 03/24/2023 4:04 PM Signed CDM Telephonic Outreach Provider Action/FYI CDM: CHF, Asthma Called Pt, unable to leave a message to verify symptom status and needs. Contacted for: Routine Telephonic Outreach Contact made with patient: No, unable to leave message. Will reattempt call Lex Posada RN March 24, 2023 4:03 PM Allergies As of Date: 03/24/2023 Noted Allergy Reaction METFORMIN 12/12/2020 6 - Diarrhea Comments: Even low dose caused diarrhea NORCO (HYDROCODONE-ACETAMINOPHEN) 01/09/2019 5 - Intolerance Comments: Hallucination Date Reviewed: 03/23/2023 Reviewed by: Maribell Salinas LPN - Fully Assessed Reason for Visit: Community Monitoring Outreach [Other] Prescriptions as of 03/24/2023 - carvedilol (COREG) 3.125 mg tablet Take 1 tablet by mouth twice daily. In addition to 3.125mg in packets from [facility] - baclofen (LIORESAL) 20 mg tablet Take 20 mg by mouth three times daily. - apixaban (ELIQUIS) 5 mg tab(s) Take 1 tablet by mouth twice daily. - bumetanide (BUMEX) 1 mg tablet Take 1 tablet by mouth once daily. - lisinopril (ZESTRIL) 40 mg tablet Take 1 tablet by mouth once daily. - carvedilol (COREG) 6.25 mg tablet Take 1 tablet by mouth twice daily with meals. - insulin glargine (BASAGLAR KWIKPEN U-100 INSULIN) 100 unit/mL (3 mL) Inject 27 Units subcutaneously daily at bedtime. Adjust dose as directed - carbidopa-levodopa (SINEMET 25-100) 25-100 mg per tablet Take 1 tablet by mouth three times daily. - loratadine (CLARITIN) 10 mg tablet Take 1 tablet by mouth once daily as needed. - omeprazole (PRILOSEC) 20 mg capsule Take 1 capsule by mouth twice daily. - tamsulosin (FLOMAX) 0.4 mg TAKE 1 CAPSULE BY MOUTH AT BEDTIME - budesonide-formoterol (SYMBICORT) 80-4.5 mcg/actuation inhaler Inhale 2 Puffs as instructed twice daily. - fluticasone-vilanterol (BREO ELLIPTA) 100-25 mcg/dose inhaler Inhale 1 Inhalation as instructed once daily. - bicalutamide (CASODEX) 50 mg tablet Take 50 mg by mouth once daily. - blood sugar diagnostic (BLOOD GLUCOSE TEST) test strip Test Two times a day. Insulin Dep? Yes E11.9 DM 2 - Lancets lancets Use as instructed to check blood sugar twice daily .Insulin Dep? Yes E11.9 DM 2 - insulin needles, DISPOSABLE, (PEN NEEDLE) 31 gauge x 5/16 Use one needle per dose. One per day. DX E11.9 Insulin Yes - albuterol HFA (VENTOLIN HFA) 90 mcg/actuation inhaler Inhale 2 Puffs as instructed every 6 hours as needed for wheezing/shortness of breath. - nitroglycerin sublingual (NITROQUICK) 0.4 mg SL tablet Dissolve 1 tablet under the tongue every 5 minutes as needed for Chest Pain. - COMPOUNDED PRESCRIPTION Four point cane Dx: Z86.73, R53.1 - CPAP BiPAP @ 9/13 cm of water with humidification. lifetime supplies. Dx ALBINO - cyanocobalamin (VITAMIN B-12) 1,000 mcg tab Take 1,000 mcg by mouth once daily. - Multivitamin ORAL capsule Take 1 capsule by mouth once daily. Problem List As Of Date 03/24/2023 Noted Resolved Brain tumor (HCC) [D49.6] 12/31/2013 Atrial fibrillation status post cardioversion (*12/31/2013 Cerebral embolism with cerebral infarction (HCC*12/31/2013 Uncontrolled type 2 diabetes mellitus without c*12/31/2013 10/07/2017 Impotence of organic origin [N52.9] 12/31/2013 Obesity, unspecified [E66.9] 12/31/2013 07/29/2022 Pure hypercholesterolemia [E78.00] 12/31/2013 Other constipation [K59.09] 12/31/2013 Special screening for malignant neoplasms, colo*12/31/2013 Debility, unspecified [R53.81] 12/31/2013 Essential and other specified forms of tremor [*12/31/2013 Esophageal reflux [K21.9] 12/31/2013 Essential hypertension, benign [I10] 12/31/2013 Unspecified late effects of cerebrovascular dis*12/31/2013 Apnea [R06.81] 12/31/2013 08/11/2016 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] 12/31/2013 Type II or unspecified type diabetes mellitus w*12/31/2013 04/05/2017 Preoperative examination, unspecified [Z01.818] 12/31/2013 03/08/2016 Rash and other nonspecific skin eruption [R21] 12/31/2013 Abdominal pain, unspecified site [R10.9] 12/31/2013 Pressure ulcer, unspecified site(707.00) [L89.9*12/31/2013 04/05/2017 Class 1 obesity due to excess calories with ser*07/16/2014 08/14/2019 Seizure disorder (HCC) [G40.909] Obesity (BMI 30.0-34.9) [E66.9] 02/24/2017 08/14/2019 History of CVA (cerebrovascular accident) [Z86.*02/24/2017 Sleep apnea [G47.30] 02/24/2017 Chronic anticoagulation [Z79.01] 02/24/2017 Pulmonary hypertension, secondary (HCC) [UWZ363*03/10/2017 Typical atrial flutter (HCC) [I48.3] 04/13/2017 ALBINO (obstructive sleep apnea) [G47.33] H/O: stroke [Z86.73] 11/07/2010 H/O brain (more content not included)... [facility] 03-23-2023 Note HNO ID: [id number] Author: Manuel Canales MD Service: ? Author Type: Physician Type: Progress Notes Filed: 04/24/2023 11:41 PM Note Text: This note was created using [employer]. Subjective Steph Baumann is a 72 year old male. Patient presents with: F/U 6 months SUBJECTIVE: Steph Baumann is a 72 year old year old gentleman here today for 6 month follow up appointment for review of medical conditions. Overall doing well. Blood sugars are running around 129 Allergies ans asthma symptoms have been okay. Has Breo and Symbicort at home. Breo expensive. Walking affected by right hip pain on the side. Pain and tenderness lateral hip. Told to keep doing exercises. Does have HCDPOA and LW--will drop off copy again. Atif Ferraro is HCDPOA (contact info on chart). Depression Screening 04/03/2021 10/01/2022 10/01/2022 03/23/2023 PHQ-2 Score 0 0 0 0 PHQ-9 Score 0 - - - NUNU-2 Total Score - - - - Depression screening tool completed and reviewed. Based on score and interview, patient is not at risk for depression. Screening tool discussed with patient, and I recommended no further intervention at this time. PAST MEDICAL HISTORY Diagnosis Date Atrial fibrillation (HCC) CVA 2010, attributed to atrial fibrillation. Warfarin since. Esophageal reflux Essential and other specified forms of tremor 12/31/2013 All my life. Essential hypertension, benign H/O brain tumor Benign, resected. H/O right and left heart catheterization H/O: stroke 2010 No functional residual. 04/13/2017. Hypercholesterolemia ICD (implantable cardioverter-defibrillator), biventricular, in situ 10/[address] Gonzáles ALBINO (obstructive sleep apnea) BiPAP, [facility] 07/09/2014. Consistently compliant 04/14/2017. TO Seizure disorder (HCC) Type II or unspecified type diabetes mellitus without mention of complication, uncontrolled Current Outpatient Medications Medication Sig carbidopa-levodopa (SINEMET 25-100) 25-100 mg per tablet Take 1 tablet by mouth three times daily. apixaban (ELIQUIS) 5 mg tab(s) Take 1 tablet by mouth twice daily. loratadine (CLARITIN) 10 mg tablet Take 1 tablet by mouth once daily as needed. omeprazole (PRILOSEC) 20 mg capsule Take 1 capsule by mouth twice daily. tamsulosin (FLOMAX) 0.4 mg TAKE 1 CAPSULE BY MOUTH AT BEDTIME bumetanide (BUMEX) 1 mg tablet Take 1 tablet by mouth once daily. lisinopril (ZESTRIL, PRINIVIL) 40 mg tablet Take 1 tablet by mouth once daily. budesonide-formoterol (SYMBICORT) 80-4.5 mcg/actuation inhaler Inhale 2 Puffs as instructed twice daily. fluticasone-vilanterol (BREO ELLIPTA) 100-25 mcg/dose inhaler Inhale 1 Inhalation as instructed once daily. bicalutamide (CASODEX) 50 mg tablet Take 50 mg by mouth once daily. blood sugar diagnostic (BLOOD GLUCOSE TEST) test strip Test Two times a day. Insulin Dep? Yes E11.9 DM 2 Lancets lancets Use as instructed to check blood sugar twice daily .Insulin Dep? Yes E11.9 DM 2 insulin needles, DISPOSABLE, (PEN NEEDLE) 31 gauge x 5/16 Use one needle per dose. One per day. DX E11.9 Insulin Yes albuterol HFA (VENTOLIN HFA) 90 mcg/actuation inhaler Inhale 2 Puffs as instructed every 6 hours as needed for wheezing/shortness of breath. nitroglycerin sublingual (NITROQUICK) 0.4 mg SL tablet Dissolve 1 tablet under the tongue every 5 minutes as needed for Chest Pain. COMPOUNDED PRESCRIPTION Four point cane Dx: Z86.73, R53.1 CPAP BiPAP @ 9/13 cm of water with humidification. lifetime supplies. Dx ALBINO cyanocobalamin (VITAMIN B-12) 1,000 mcg tab Take 1,000 mcg by mouth once daily. Multivitamin ORAL capsule Take 1 capsule by mouth once daily. carvedilol (COREG) 3.125 mg tablet Take 1 tablet by mouth twice daily. In addition to 3.125mg in packets from [facility] baclofen (LIORESAL) 20 mg tablet Take 20 mg by mouth three times daily. carvedilol (COREG) 3.125 mg tablet TAKE 1 TABLET BY MOUTH TWICE DAILY WITH MEAL/FOOD insulin glargine (BASAGLAR KWIKPEN U-100 INSULIN) 100 unit/mL (3 mL) Inject 27 Units subcutaneously daily at bedtime. Adjust dose as directed No current facility-administered medications for this visit. Review of Systems Objective BP 118/72 Pulse 65 Temp 36.5 ?C (97.7 ?F) Resp 18 Wt 78.5 kg (173 lb) SpO2 97% BMI 24.82 kg/m? Last 5 Encounter Wt Readings: Date: Wt: 03/23/2023 78.5 kg (173 lb) 03/09/2023 78 kg (172 lb) 10/01/2022 85.7 kg (189 lb) 09/02/2022 77.6 kg (171 lb) 04/28/2022 79.4 kg (175 lb) No waist measurement recorded Estimated body mass index is 24.82 kg/m? as calculated from the following: Height as of 03/09/23: 177.8 cm (5' 10 ). Weight as of this encounter: 78.5 kg (173 lb). Last 5 Encounter BP Readings: Date: BP: 03/23/2023 118/72 03/09/2023 119/48 10/01/2022 98/58 09/02/2022 116/73 04/28/2022 120/62 Physical Exam Vitals reviewed. Constitutional: Appearance: Normal appearance. HENT: Head: Nor (more content not included)... [facility] 03-23-2023 History of Present illness Narrative This note was created using [employer]. Subjective Steph Baumann is a 72 year old male. Patient presents with: F/U 6 months SUBJECTIVE: Steph Baumann is a 72 year old year old gentleman here today for 6 month follow up appointment for review of medical conditions. Overall doing well. Blood sugars are running around 129 Allergies ans asthma symptoms have been okay. Has Breo and Symbicort at home. Breo expensive. Walking affected by right hip pain on the side. Pain and tenderness lateral hip. Told to keep doing exercises. Does have HCDPOA and LW--will drop off copy again. Atif Ferraro is HCDPOA (contact info on chart). Depression Screening 04/03/2021 10/01/2022 10/01/2022 03/23/2023 PHQ-2 Score 0 0 0 0 PHQ-9 Score 0 - - - NUNU-2 Total Score - - - - Depression screening tool completed and reviewed. Based on score and interview, patient is not at risk for depression. Screening tool discussed with patient, and I recommended no further intervention at this time. PAST MEDICAL HISTORY Diagnosis Date Atrial fibrillation (HCC) CVA 2010, attributed to atrial fibrillation. Warfarin since. Esophageal reflux Essential and other specified forms of tremor 12/31/2013 All my life. Essential hypertension, benign H/O brain tumor Benign, resected. H/O right and left heart catheterization H/O: stroke 2010 No functional residual. 04/13/2017. Hypercholesterolemia ICD (implantable cardioverter-defibrillator), biventricular, in situ 10/[address] Gonzáles ALBINO (obstructive sleep apnea) BiPAP, [facility] 07/09/2014. Consistently compliant 04/14/2017. TO Seizure disorder (HCC) Type II or unspecified type diabetes mellitus without mention of complication, uncontrolled Current Outpatient Medications Medication Sig carbidopa-levodopa (SINEMET 25-100) 25-100 mg per tablet Take 1 tablet by mouth three times daily. apixaban (ELIQUIS) 5 mg tab(s) Take 1 tablet by mouth twice daily. loratadine (CLARITIN) 10 mg tablet Take 1 tablet by mouth once daily as needed. omeprazole (PRILOSEC) 20 mg capsule Take 1 capsule by mouth twice daily. tamsulosin (FLOMAX) 0.4 mg TAKE 1 CAPSULE BY MOUTH AT BEDTIME bumetanide (BUMEX) 1 mg tablet Take 1 tablet by mouth once daily. lisinopril (ZESTRIL, PRINIVIL) 40 mg tablet Take 1 tablet by mouth once daily. budesonide-formoterol (SYMBICORT) 80-4.5 mcg/actuation inhaler Inhale 2 Puffs as instructed twice daily. fluticasone-vilanterol (BREO ELLIPTA) 100-25 mcg/dose inhaler Inhale 1 Inhalation as instructed once daily. bicalutamide (CASODEX) 50 mg tablet Take 50 mg by mouth once daily. blood sugar diagnostic (BLOOD GLUCOSE TEST) test strip Test Two times a day. Insulin Dep? Yes E11.9 DM 2 Lancets lancets Use as instructed to check blood sugar twice daily .Insulin Dep? Yes E11.9 DM 2 insulin needles, DISPOSABLE, (PEN NEEDLE) 31 gauge x 5/16 Use one needle per dose. One per day. DX E11.9 Insulin Yes albuterol HFA (VENTOLIN HFA) 90 mcg/actuation inhaler Inhale 2 Puffs as instructed every 6 hours as needed for wheezing/shortness of breath. nitroglycerin sublingual (NITROQUICK) 0.4 mg SL tablet Dissolve 1 tablet under the tongue every 5 minutes as needed for Chest Pain. COMPOUNDED PRESCRIPTION Four point cane Dx: Z86.73, R53.1 CPAP BiPAP @ 9/13 cm of water with humidification. lifetime supplies. Dx ALBINO cyanocobalamin (VITAMIN B-12) 1,000 mcg tab Take 1,000 mcg by mouth once daily. Multivitamin ORAL capsule Take 1 capsule by mouth once daily. carvedilol (COREG) 3.125 mg tablet Take 1 tablet by mouth twice daily. In addition to 3.125mg in packets from [facility] baclofen (LIORESAL) 20 mg tablet Take 20 mg by mouth three times daily. carvedilol (COREG) 3.125 mg tablet TAKE 1 TABLET BY MOUTH TWICE DAILY WITH MEAL/FOOD insulin glargine (BASAGLAR KWIKPEN U-100 INSULIN) 100 unit/mL (3 mL) Inject 27 Units subcutaneously daily at bedtime. Adjust dose as directed No current facility-administered medications for this visit. Review of Systems Objective BP 118/72 Pulse 65 Temp 36.5 C (97.7 F) Resp 18 Wt 78.5 kg (173 lb) SpO2 97% BMI 24.82 kg/m Last 5 Encounter Wt Readings: Date: Wt: 03/23/2023 78.5 kg (173 lb) 03/09/2023 78 kg (172 lb) 10/01/2022 85.7 kg (189 lb) 09/02/2022 77.6 kg (171 lb) 04/28/2022 79.4 kg (175 lb) No waist measurement recorded Estimated body mass index is 24.82 kg/m as calculated from the following: Height as of 03/09/23: 177.8 cm (5' 10 ). Weight as of this encounter: 78.5 kg (173 lb). Last 5 Encounter BP Readings: Date: BP: 03/23/2023 118/72 03/09/2023 119/48 10/01/2022 98/58 09/02/2022 116/73 04/28/2022 120/62 Physical Exam Vitals reviewed. Constitutional: Appearance: Normal appearance. HENT: Head: Normocephalic. Eyes: Conjunctiva/sclera: Conjunctivae normal. Cardiovascular: Rate and Rhythm: Normal rate and regular rhythm. Heart sounds: Normal heart sounds. Pulmonary: Effort: Pulmonary effort is normal. Breath sounds: Normal breath sounds. Musculoskeletal: Right lower leg: No edema. Left lower leg: No edema. Comments: tender greater trochanteric area on right Skin: General: Skin is warm and dry. Neurological: General: No focal deficit present. Mental Status: He is alert and oriented to person, place, and time. Psychiatric: Mood and Affect: Mood normal. Behavior: Behavior normal. Thought Content: Thought content normal. Judgment: Judgment normal. Component Latest Ref Rng & Units 04/28/2022 09/02/2022 03/09/2023 Protein, Total 6.3 - 8.0 g/dL 7.5 7.4 Albumin 3.9 - 4.9 g/dL 4.3 3.9 Calcium 8.5 - 10.2 mg/dL 10.1 9.4 Bilirubin, Total 0.2 - 1.3 mg/dL 0.5 0.7 Alkaline Phosphatase 38 - 113 U/L 137 (H) 129 (H) AST 14 - 40 U/L 20 21 ALT 10 - 54 U/L 14 6 (L) Glucose 74 - 99 mg/dL 171 (H) 222 (H) BUN 9 - 24 mg/dL 28 (H) 21 Creatinine 0.73 - 1.22 mg/dL 1.25 (H) 1.20 Sodium 136 - 144 mmol/L 138 137 Potassium 3.7 - 5.1 mmol/L 5.3 (H) 4.5 Chloride 97 - 105 mmol/L 102 103 CO2 22 - 30 mmol/L 29 22 Anion Gap 9 - 18 mmol/L 7 (L) 12 eGFR >=60 mL/min/1.73m 62 65 WBC 3.70 - 11.00 k/uL 6.08 6.44 RBC 4.20 - 6.00 m/uL 4.02 (L) 3.82 (L) Hemoglobin 13.0 - 17.0 g/dL 13.0 12.3 (L) Hematocrit 39.0 - 51.0 % 40.5 36.7 (L) MCV 80.0 - 100.0 fL 100.7 (H) 96.1 MCH 26.0 - 34.0 pg 32.3 32.2 MCHC 30.5 - 36.0 g/dL 32.1 33.5 RDW-CV 11.5 - 15.0 % 13.2 13.6 Platelet Count 150 - 400 k/uL 122 (L) 118 (L) MPV 9.0 - 12.7 fL 11.0 11.0 Absolute nRBC <0.01 k/uL <0.01 <0.01 PT Sec 9.7 - 13.0 sec 12.7 13.7 (H) PT INR 0.9 - 1.3 1.2 1.3 Hemoglobin A1C (POCT) 4.2 - 5.6 % 6.9 (A) Hemoglobin A1C (%) Date Value 01/07/2022 11.1 03/26/2021 9.6 12/11/2020 7.7 04/02/2020 7.1 11/06/2019 5.9 07/19/2019 6.1 Hemoglobin A1C (POCT) (%) Date Value 03/23/2023 8.1 10/01/2022 7.6 04/28/2022 6.9 Assessment and Plan Encounter Diagnosis ICD-10-CM 1. Controlled type 2 diabetes mellitus without complication, with long-term current use of insulin (HCC) E11.9 lisinopril (ZESTRIL) 40 mg tablet Z79.4 HEMOGLOBIN A1C (POC) LIPID PANEL BASIC HGB A1C ALBUMIN/CREAT RATIO RND UR CANCELED: ALBUMIN/CREAT RATIO RND UR Sugars at home are better than what is reflected in POC HgA1C done today which is up to 8.1. Monitor for now and adjust meds and diet if not improving 2. Essential hypertension, benign I10 lisinopril (ZESTRIL) 40 mg tablet LIPID PANEL BASIC HGB A1C BP runs on low side. Encouraged to stay hydrated, Adjust med(s) as needed 3. 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 M25.551 4. Moderate persistent asthma without complication J45.40 Continue present meds Adjust as needed 5. Cirrhosis of liver with ascites, unspecified hepatic cirrhosis type (HCC) K74.60 R18.8 Stable on current management. Continue follow up with GI Above issues addressed with patient. Patient involved in shared decision making for management of medical issues. History and medications reviewed. Epic updated as needed Refills and/or prescriptions taken care of and meds adjusted as indicated after reviewed history, exam and labs. Health Maintenance reviewed. Updated record and/or ordered tests as recorded. Encouraged on efforts at healthy diet and regular exercise and adequate sleep. Manuel Canales MD documented in this encounter [facility] 03-15-2023 Miscellaneous Notes Called patient and left a VM. Callback number provided. Called patient's caregiver, Atif, per patient request and reviewed message with her. She wanted to provide the update that patient is at the 6.25 dose of coreg. Netta Espinal RN March 15, 2023 11:12 AM Netta, Please let him know The results for CMP were delayed for several days, which is why I dod not call him on Liver tests look quite good. His MELD score (11) is the same as it was in August. I look forward to visit scheduled for Sep 13, after refreshed labs and new US. Thanks Home Loredo MD 03/09/23 Patient calling for results. Agata documented in this encounter [facility] 03-15-2023 Miscellaneous Notes Results reviewed. See phone encounter dated 03/09/23. Netta Espinal RN March 15, 2023 11:08 AM 03/11/23 Patient calling for lab results, If you can call his caregiver, Atif, Agata documented in this encounter [facility] 03-09-2023 Note HNO ID: [id number] Author: Home Loredo MD Service: ? Author Type: Physician Type: Progress Notes Filed: 03/09/2023 4:25 PM Note Text: Follow up cirrhosis Here with friend Last visit Aug 2022 when we concluded: Assessment and Plan: In conclusion, Steph Baumann is a 72 year old male with prostate cancer (s/p radiation; on Eligard-leuprolide) who presents for further evaluation of cardiac decompensated cirrhosis c/b pHTN, EV (s/p EGD 2019- Grade I) (Fibroscan 2019, 31.3kPa). Also noted to have small echogenic lesion in R hepatic lobe (currently undergoing surveillance). Overall doing OK s/p mechanical fall with R hip fracture s/p R hemiarthroplasty. No evidence of further decompensation from liver disease at this time but will f/u updated labwork and imaging. - CBC, CMP, INR done today--results pending; will calculated MELD-Na score. Repeat labwork ordered in 6 mo. - Patient to discuss starting carvedilol with mechanical maintenance instructor (ideally 6.25mg PO BID). Patient will also discuss switching to a lipophilic statin for HCC reduction. - HCC screening: Q6mo; Will order now. RUQ US 10/2021- 4mm echogenic lesion in R hepatic lobe (stable since 01/2021), no new hepatic lesion. - EV screening: Not on BB. EGD (2019)- Grade I EV, PHG. - Ascites: none - HE: none Health Maintenance: - Screening Colonoscopy: Last CSP 2013; recommended repeat in 2023. - Hepatitis Vaccination status: Vaccinated for Hep A AND Hep B - Influenza Vaccine: Due this year (will get with PCP after Thanksgiving) - PNA Vaccine: Up to date. - Bone density: No results found for: Vit D pending from today. Bone density test up to date per patient. Margareth Rivas MD GI/hepatology fellow I have seen and evaluated the patient and discussed the case with the Fellow. I agree with the assessment and plan as documented in the resident?s note. See me in 6 months Interval He feels well. Gets about with walker. US today MILDLY HETEROGENEOUS HEPATIC PARENCHYMAL ECHOTEXTURE. 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 GALLBLADDER SLUDGE AND STONE. ATROPHIC KIDNEYS WITH RENAL CORTICAL THINNING. MILD SPLENOMEGALY. Labs today loretta this am: cmp still not available (4PM); CBC low platelets INR normal August MELD Exam: BP (!) 119/48 (BP Site: Right Arm, BP Position: Sitting, BP Cuff Size: Regular Adult) Pulse 70 Temp 36.1 ?C (97 ?F) (Temporal) Ht 177.8 cm (5' 10 ) Wt 78 kg (172 lb) SpO2 98% BMI 24.68 kg/m? general: somewhat frail - in wheelchair NAD neuro: no asterixis Impression: cirrhosis, stable MELD 17 August MELD today ??? Rec: continue same program 2. new labs and US 6 months I will call after CMP is available Home Loredo MD [facility] 03-09-2023 History of Present illness Narrative Follow up cirrhosis Here with friend Last visit Aug 2022 when we concluded: Assessment and Plan: In conclusion, Steph Baumann is a 72 year old male with prostate cancer (s/p radiation; on Eligard-leuprolide) who presents for further evaluation of cardiac decompensated cirrhosis c/b pHTN, EV (s/p EGD 2019- Grade I) (Fibroscan 2018, 31.3kPa). Also noted to have small echogenic lesion in R hepatic lobe (currently undergoing surveillance). Overall doing OK s/p mechanical fall with R hip fracture s/p R hemiarthroplasty. No evidence of further decompensation from liver disease at this time but will f/u updated labwork and imaging. - CBC, CMP, INR done today--results pending; will calculated MELD-Na score. Repeat labwork ordered in 6 mo. - Patient to discuss starting carvedilol with mechanical maintenance instructor (ideally 6.25mg PO BID). Patient will also discuss switching to a lipophilic statin for HCC reduction. - HCC screening: Q6mo; Will order now. RUQ US 10/2021- 4mm echogenic lesion in R hepatic lobe (stable since 01/2021), no new hepatic lesion. - EV screening: Not on BB. EGD (2019)- Grade I EV, PHG. - Ascites: none - HE: none Health Maintenance: - Screening Colonoscopy: Last CSP 2013; recommended repeat in 2023. - Hepatitis Vaccination status: Vaccinated for Hep A & Hep B - Influenza Vaccine: Due this year (will get with PCP after Thanksgiving) - PNA Vaccine: Up to date. - Bone density: No results found for: Vit D pending from today. Bone density test up to date per patient. Margareth Rivas MD GI/hepatology fellow I have seen and evaluated the patient and discussed the case with the Fellow. I agree with the assessment and plan as documented in the resident s note. See me in 6 months Interval He feels well. Gets about with walker. US today MILDLY HETEROGENEOUS HEPATIC PARENCHYMAL ECHOTEXTURE. 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 GALLBLADDER SLUDGE AND STONE. ATROPHIC KIDNEYS WITH RENAL CORTICAL THINNING. MILD SPLENOMEGALY. Labs today loretta this am: cmp still not available (4PM); CBC low platelets INR normal August MELD Exam: BP (!) 119/48 (BP Site: Right Arm, BP Position: Sitting, BP Cuff Size: Regular Adult) Pulse 70 Temp 36.1 C (97 F) (Temporal) Ht 177.8 cm (5' 10 ) Wt 78 kg (172 lb) SpO2 98% BMI 24.68 kg/m general: somewhat frail - in wheelchair NAD neuro: no asterixis Impression: cirrhosis, stable MELD 17 August MELD today ??? Rec: continue same program 2. new labs and US 6 months I will call after CMP is available Home Loredo MD documented in this encounter [facility] 02-25-2023 Note HNO ID: [id number] Author: Lex Posada RN Service: ? Author Type: Registered Nurse Type: Progress Notes Filed: 02/25/2023 1:38 PM Note Text: CDM Telephonic Outreach Provider Action/FYI CDM: CHF, Asthma Called Pt, unable to leave a message to verify symptom status and needs. Contacted for: Routine Telephonic Outreach Contact made with patient: No, unable to leave message. Will reattempt call Lex Posada RN February 25, 2023 1:37 PM [facility] 02-25-2023 Note Patient Outreach (AM [facility]) STEPH BAUMANN ([id number]) 1950 Date Time Provider Department 02/25/23 LEX POSADA During your visit today, we recorded the following information about you: Lex Posada RN 02/25/2023 1:38 PM Signed CDM Telephonic Outreach Provider Action/FYI CDM: CHF, Asthma Called Pt, unable to leave a message to verify symptom status and needs. Contacted for: Routine Telephonic Outreach Contact made with patient: No, unable to leave message. Will reattempt call Lex Posada RN February 25, 2023 1:37 PM Allergies As of Date: 02/25/2023 Noted Allergy Reaction METFORMIN 12/12/2020 6 - Diarrhea Comments: Even low dose caused diarrhea NORCO (HYDROCODONE-ACETAMINOPHEN) 01/09/2019 5 - Intolerance Comments: Hallucination Date Reviewed: 10/01/2022 Reviewed by: Pam Simpson Ma - Fully Assessed Reason for Visit: Community Monitoring Outreach [Other] Prescriptions as of 02/25/2023 - apixaban (ELIQUIS) 5 mg tab(s) Take 1 tablet by mouth twice daily. - loratadine (CLARITIN) 10 mg tablet Take 1 tablet by mouth once daily as needed. - carvedilol (COREG) 3.125 mg tablet TAKE 1 TABLET BY MOUTH TWICE DAILY WITH MEAL/FOOD - omeprazole (PRILOSEC) 20 mg capsule Take 1 capsule by mouth twice daily. - tamsulosin (FLOMAX) 0.4 mg TAKE 1 CAPSULE BY MOUTH AT BEDTIME - bumetanide (BUMEX) 1 mg tablet Take 1 tablet by mouth once daily. - lisinopril (ZESTRIL, PRINIVIL) 40 mg tablet Take 1 tablet by mouth once daily. - budesonide-formoterol (SYMBICORT) 80-4.5 mcg/actuation inhaler Inhale 2 Puffs as instructed twice daily. - fluticasone-vilanterol (BREO ELLIPTA) 100-25 mcg/dose inhaler Inhale 1 Inhalation as instructed once daily. - insulin glargine (BASAGLAR KWIKPEN U-100 INSULIN) 100 unit/mL (3 mL) Inject 27 Units subcutaneously daily at bedtime. Adjust dose as directed - bicalutamide (CASODEX) 50 mg tablet Take 50 mg by mouth once daily. - blood sugar diagnostic (BLOOD GLUCOSE TEST) test strip Test Two times a day. Insulin Dep? Yes E11.9 DM 2 - Lancets lancets Use as instructed to check blood sugar twice daily .Insulin Dep? Yes E11.9 DM 2 - insulin needles, DISPOSABLE, (PEN NEEDLE) 31 gauge x 5/16 Use one needle per dose. One per day. DX E11.9 Insulin Yes - albuterol HFA (VENTOLIN HFA) 90 mcg/actuation inhaler Inhale 2 Puffs as instructed every 6 hours as needed for wheezing/shortness of breath. - nitroglycerin sublingual (NITROQUICK) 0.4 mg SL tablet Dissolve 1 tablet under the tongue every 5 minutes as needed for Chest Pain. - COMPOUNDED PRESCRIPTION Four point cane Dx: Z86.73, R53.1 - CPAP BiPAP @ 9/13 cm of water with humidification. lifetime supplies. Dx ALBINO - cyanocobalamin (VITAMIN B-12) 1,000 mcg tab Take 1,000 mcg by mouth once daily. - Multivitamin ORAL capsule Take 1 capsule by mouth once daily. Problem List As Of Date 02/25/2023 Noted Resolved Brain tumor (HCC) [D49.6] 12/31/2013 Atrial fibrillation status post cardioversion (*12/31/2013 Cerebral embolism with cerebral infarction (HCC*12/31/2013 Uncontrolled type 2 diabetes mellitus without c*12/31/2013 10/07/2017 Impotence of organic origin [N52.9] 12/31/2013 Obesity, unspecified [E66.9] 12/31/2013 07/29/2022 Pure hypercholesterolemia [E78.00] 12/31/2013 Other constipation [K59.09] 12/31/2013 Special screening for malignant neoplasms, colo*12/31/2013 Debility, unspecified [R53.81] 12/31/2013 Essential and other specified forms of tremor [*12/31/2013 Esophageal reflux [K21.9] 12/31/2013 Essential hypertension, benign [I10] 12/31/2013 Unspecified late effects of cerebrovascular dis*12/31/2013 Apnea [R06.81] 12/31/2013 08/11/2016 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] 12/31/2013 Type II or unspecified type diabetes mellitus w*12/31/2013 04/05/2017 Preoperative examination, unspecified [Z01.818] 12/31/2013 03/08/2016 Rash and other nonspecific skin eruption [R21] 12/31/2013 Abdominal pain, unspecified site [R10.9] 12/31/2013 Pressure ulcer, unspecified site(707.00) [L89.9*12/31/2013 04/05/2017 Class 1 obesity due to excess calories with ser*07/16/2014 08/14/2019 Seizure disorder (HCC) [G40.909] Obesity (BMI 30.0-34.9) [E66.9] 02/24/2017 08/14/2019 History of CVA (cerebrovascular accident) [Z86.*02/24/2017 Sleep apnea [G47.30] 02/24/2017 Chronic anticoagulation [Z79.01] 02/24/2017 Pulmonary hypertension, secondary (HCC) [RWL279*03/10/2017 Typical atrial flutter (HCC) [I48.3] 04/13/2017 ALBINO (obstructive sleep apnea) [G47.33] H/O: stroke [Z86.73] 11/07/2010 H/O brain tumor [Z87.898] Controlled type 2 diabetes mellitus without com*10/07/2017 Stasis edema of both lower extremities [I87.303]04/23/2018 Chronic diastolic CHF (congestive heart failure*08/25/2018 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 [facility] 02-25-2023 History of Present illness Narrative CDM Telephonic Outreach Provider Action/FYI CDM: CHF, Asthma Called Pt, unable to leave a message to verify symptom status and needs. Contacted for: Routine Telephonic Outreach Contact made with patient: No, unable to leave message. Will reattempt call Lex Posada RN February 25, 2023 1:37 PM documented in this encounter [facility] 02-09-2023 Note HNO ID: [id number] Author: Lex Posada RN Service: ? Author Type: Registered Nurse Type: Progress Notes Filed: 02/09/2023 5:31 PM Note Text: [facility] TELEPHONIC OUTREACH Provider Action/FYI: CDM: CHF, Asthma Called Pt, unable to leave a message to verify symptom status and needs. Contact made with patient: No - Unable to leave message Entered next patient outreach date for the following business day, if third call please enter next outreach date for one week in the Track Pt. Outreach - End Outreach Lex Posada RN February 09, 2023 5:30 PM [facility] 02-09-2023 History of Present illness Narrative [facility] TELEPHONIC OUTREACH Provider Action/FYI: CDM: CHF, Asthma Called Pt, unable to leave a message to verify symptom status and needs. Contact made with patient: No - Unable to leave message Entered next patient outreach date for the following business day, if third call please enter next outreach date for one week in the Track Pt. Outreach - End Outreach Lex Posada RN February 09, 2023 5:30 PM documented in this encounter [facility] 02-09-2023 Note Patient Outreach (AM [facility]) STEPH BAUMANN ([id number]) 1950 M Date Time Provider Department 02/09/23 LEX POSADA During your visit today, we recorded the following information about you: Lex Posada RN 02/09/2023 5:31 PM Signed [facility]IGHT [facility] TELEPHONIC OUTREACH Provider Action/FYI: CDM: CHF, Asthma Called Pt, unable to leave a message to verify symptom status and needs. Contact made with patient: No - Unable to leave message Entered next patient outreach date for the following day, if third call please enter next outreach date for one week in the Track Pt. Outreach - End Outreach Lex Posada RN February 09, 2023 5:30 PM Allergies As of Date: 02/09/2023 Noted Allergy Reaction METFORMIN 12/12/2020 6 - Diarrhea Comments: Even low dose caused diarrhea NORCO (HYDROCODONE-ACETAMINOPHEN) 01/09/2019 5 - Intolerance Comments: Hallucination Date Reviewed: 10/01/2022 Reviewed by: Pam Simpson Ma - Fully Assessed Reason for Visit: Community Monitoring Outreach [Other] Prescriptions as of 02/09/2023 - apixaban (ELIQUIS) 5 mg tab(s) Take 1 tablet by mouth twice daily. - loratadine (CLARITIN) 10 mg tablet Take 1 tablet by mouth once daily as needed. - carvedilol (COREG) 3.125 mg tablet TAKE 1 TABLET BY MOUTH TWICE DAILY WITH MEAL/FOOD - omeprazole (PRILOSEC) 20 mg capsule Take 1 capsule by mouth twice daily. - tamsulosin (FLOMAX) 0.4 mg TAKE 1 CAPSULE BY MOUTH AT BEDTIME - bumetanide (BUMEX) 1 mg tablet Take 1 tablet by mouth once daily. - lisinopril (ZESTRIL, PRINIVIL) 40 mg tablet Take 1 tablet by mouth once daily. - budesonide-formoterol (SYMBICORT) 80-4.5 mcg/actuation inhaler Inhale 2 Puffs as instructed twice daily. - fluticasone-vilanterol (BREO ELLIPTA) 100-25 mcg/dose inhaler Inhale 1 Inhalation as instructed once daily. - insulin glargine (BASAGLAR KWIKPEN U-100 INSULIN) 100 unit/mL (3 mL) Inject 27 Units subcutaneously daily at bedtime. Adjust dose as directed - bicalutamide (CASODEX) 50 mg tablet Take 50 mg by mouth once daily. - blood sugar diagnostic (BLOOD GLUCOSE TEST) test strip Test Two times a day. Insulin Dep? Yes E11.9 DM 2 - Lancets lancets Use as instructed to check blood sugar twice daily .Insulin Dep? Yes E11.9 DM 2 - insulin needles, DISPOSABLE, (PEN NEEDLE) 31 gauge x 5/16 Use one needle per dose. One per day. DX E11.9 Insulin Yes - albuterol HFA (VENTOLIN HFA) 90 mcg/actuation inhaler Inhale 2 Puffs as instructed every 6 hours as needed for wheezing/shortness of breath. - nitroglycerin sublingual (NITROQUICK) 0.4 mg SL tablet Dissolve 1 tablet under the tongue every 5 minutes as needed for Chest Pain. - COMPOUNDED PRESCRIPTION Four point cane Dx: Z86.73, R53.1 - CPAP BiPAP @ 9/13 cm of water with humidification. lifetime supplies. Dx ALBINO - cyanocobalamin (VITAMIN B-12) 1,000 mcg tab Take 1,000 mcg by mouth once daily. - Multivitamin ORAL capsule Take 1 capsule by mouth once daily. Problem List As Of Date 02/09/2023 Noted Resolved Brain tumor (HCC) [D49.6] 12/31/2013 Atrial fibrillation status post cardioversion (*12/31/2013 Cerebral embolism with cerebral infarction (HCC*12/31/2013 Uncontrolled type 2 diabetes mellitus without c*12/31/2013 10/07/2017 Impotence of organic origin [N52.9] 12/31/2013 Obesity, unspecified [E66.9] 12/31/2013 07/29/2022 Pure hypercholesterolemia [E78.00] 12/31/2013 Other constipation [K59.09] 12/31/2013 Special screening for malignant neoplasms, colo*12/31/2013 Debility, unspecified [R53.81] 12/31/2013 Essential and other specified forms of tremor [*12/31/2013 Esophageal reflux [K21.9] 12/31/2013 Essential hypertension, benign [I10] 12/31/2013 Unspecified late effects of cerebrovascular dis*12/31/2013 Apnea [R06.81] 12/31/2013 08/11/2016 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] 12/31/2013 Type II or unspecified type diabetes mellitus w*12/31/2013 04/05/2017 Preoperative examination, unspecified [Z01.818] 12/31/2013 03/08/2016 Rash and other nonspecific skin eruption [R21] 12/31/2013 Abdominal pain, unspecified site [R10.9] 12/31/2013 Pressure ulcer, unspecified site(707.00) [L89.9*12/31/2013 04/05/2017 Class 1 obesity due to excess calories with ser*07/16/2014 08/14/2019 Seizure disorder (HCC) [G40.909] Obesity (BMI 30.0-34.9) [E66.9] 02/24/2017 08/14/2019 History of CVA (cerebrovascular accident) [Z86.*02/24/2017 Sleep apnea [G47.30] 02/24/2017 Chronic anticoagulation [Z79.01] 02/24/2017 Pulmonary hypertension, secondary (HCC) [XEU936*03/10/2017 Typical atrial flutter (HCC) [I48.3] 04/13/2017 ALBINO (obstructive sleep apnea) [G47.33] H/O: stroke [Z86.73] 11/07/2010 H/O brain tumor [Z87.898] Controlled type 2 diabetes mellitus without com*10/07/2017 Stasis edema of both lower extremities [I87.303]04/23/2018 Chronic diastolic CHF (congestive heart shailesh (more content not included)... [facility] 02-02-2023 Note HNO ID: [id number] Author: Lex Posada RN Service: ? Author Type: Registered Nurse Type: Progress Notes Filed: 02/02/2023 5:21 PM Note Text: [facility] CD[facility] TELEPHONIC OUTREACH Provider Action/FYI: CDM: CHF, Asthma Call unable to leave a message to verify symptom status and needs. Contact made with patient: No - Unable to leave message Entered next patient outreach date for the following business day, if third call please enter next outreach date for one week in the Track Pt. Outreach - End Outreach Lex Posada RN February 02, 2023 5:19 PM [facility] 02-02-2023 History of Present illness Narrative [facility] TELEPHONIC OUTREACH Provider Action/FYI: CDM: CHF, Asthma Call unable to leave a message to verify symptom status and needs. Contact made with patient: No - Unable to leave message Entered next patient outreach date for the following business day, if third call please enter next outreach date for one week in the Track Pt. Outreach - End Outreach Lex Posada RN February 02, 2023 5:19 PM documented in this encounter [facility] 02-02-2023 Note Patient Outreach (AM [facility]) STEPH BAUMANN ([id number]) 1950 Date Time Provider Department 02/02/23 LEX POSADA During your visit today, we recorded the following information about you: Lex Posada RN 02/02/2023 5:21 PM Signed [facility] TELEPHONIC OUTREACH Provider Action/FYI: CDM: CHF, Asthma Call unable to leave a message to verify symptom status and needs. Contact made with patient: No - Unable to leave message Entered next patient outreach date for the following business day, if third call please enter next outreach date for one week in the Track Pt. Outreach - End Outreach Lex Posada RN February 02, 2023 5:19 PM Allergies As of Date: 02/02/2023 Noted Allergy Reaction METFORMIN 12/12/2020 6 - Diarrhea Comments: Even low dose caused diarrhea NORCO (HYDROCODONE-ACETAMINOPHEN) 01/09/2019 5 - Intolerance Comments: Hallucination Date Reviewed: 10/01/2022 Reviewed by: Pam Simpson Ma - Fully Assessed Reason for Visit: Community Monitoring Outreach [Other] Prescriptions as of 02/02/2023 - apixaban (ELIQUIS) 5 mg tab(s) Take 1 tablet by mouth twice daily. - loratadine (CLARITIN) 10 mg tablet Take 1 tablet by mouth once daily as needed. - carvedilol (COREG) 3.125 mg tablet TAKE 1 TABLET BY MOUTH TWICE DAILY WITH MEAL/FOOD - omeprazole (PRILOSEC) 20 mg capsule Take 1 capsule by mouth twice daily. - tamsulosin (FLOMAX) 0.4 mg TAKE 1 CAPSULE BY MOUTH AT BEDTIME - bumetanide (BUMEX) 1 mg tablet Take 1 tablet by mouth once daily. - lisinopril (ZESTRIL, PRINIVIL) 40 mg tablet Take 1 tablet by mouth once daily. - budesonide-formoterol (SYMBICORT) 80-4.5 mcg/actuation inhaler Inhale 2 Puffs as instructed twice daily. - fluticasone-vilanterol (BREO ELLIPTA) 100-25 mcg/dose inhaler Inhale 1 Inhalation as instructed once daily. - insulin glargine (BASAGLAR KWIKPEN U-100 INSULIN) 100 unit/mL (3 mL) Inject 27 Units subcutaneously daily at bedtime. Adjust dose as directed - bicalutamide (CASODEX) 50 mg tablet Take 50 mg by mouth once daily. - blood sugar diagnostic (BLOOD GLUCOSE TEST) test strip Test Two times a day. Insulin Dep? Yes E11.9 DM 2 - Lancets lancets Use as instructed to check blood sugar twice daily .Insulin Dep? Yes E11.9 DM 2 - insulin needles, DISPOSABLE, (PEN NEEDLE) 31 gauge x 5/16 Use one needle per dose. One per day. DX E11.9 Insulin Yes - albuterol HFA (VENTOLIN HFA) 90 mcg/actuation inhaler Inhale 2 Puffs as instructed every 6 hours as needed for wheezing/shortness of breath. - nitroglycerin sublingual (NITROQUICK) 0.4 mg SL tablet Dissolve 1 tablet under the tongue every 5 minutes as needed for Chest Pain. - COMPOUNDED PRESCRIPTION Four point cane Dx: Z86.73, R53.1 - CPAP BiPAP @ 9/13 cm of water with humidification. lifetime supplies. Dx ALBINO - cyanocobalamin (VITAMIN B-12) 1,000 mcg tab Take 1,000 mcg by mouth once daily. - Multivitamin ORAL capsule Take 1 capsule by mouth once daily. Problem List As Of Date 02/02/2023 Noted Resolved Brain tumor (HCC) [D49.6] 12/31/2013 Atrial fibrillation status post cardioversion (*12/31/2013 Cerebral embolism with cerebral infarction (HCC*12/31/2013 Uncontrolled type 2 diabetes mellitus without c*12/31/2013 10/07/2017 Impotence of organic origin [N52.9] 12/31/2013 Obesity, unspecified [E66.9] 12/31/2013 07/29/2022 Pure hypercholesterolemia [E78.00] 12/31/2013 Other constipation [K59.09] 12/31/2013 Special screening for malignant neoplasms, colo*12/31/2013 Debility, unspecified [R53.81] 12/31/2013 Essential and other specified forms of tremor [*12/31/2013 Esophageal reflux [K21.9] 12/31/2013 Essential hypertension, benign [I10] 12/31/2013 Unspecified late effects of cerebrovascular dis*12/31/2013 Apnea [R06.81] 12/31/2013 08/11/2016 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] 12/31/2013 Type II or unspecified type diabetes mellitus w*12/31/2013 04/05/2017 Preoperative examination, unspecified [Z01.818] 12/31/2013 03/08/2016 Rash and other nonspecific skin eruption [R21] 12/31/2013 Abdominal pain, unspecified site [R10.9] 12/31/2013 Pressure ulcer, unspecified site(707.00) [L89.9*12/31/2013 04/05/2017 Class 1 obesity due to excess calories with ser*07/16/2014 08/14/2019 Seizure disorder (HCC) [G40.909] Obesity (BMI 30.0-34.9) [E66.9] 02/24/2017 08/14/2019 History of CVA (cerebrovascular accident) [Z86.*02/24/2017 Sleep apnea [G47.30] 02/24/2017 Chronic anticoagulation [Z79.01] 02/24/2017 Pulmonary hypertension, secondary (HCC) [RHP985*03/10/2017 Typical atrial flutter (HCC) [I48.3] 04/13/2017 ALBINO (obstructive sleep apnea) [G47.33] H/O: stroke [Z86.73] 11/07/2010 H/O brain tumor [Z87.898] Controlled type 2 diabetes mellitus without com*10/07/2017 Stasis edema of both lower extremities [I87.303]04/23/2018 Chronic diastolic CHF (congestive heart failur (more content not included)... [facility] 01-04-2023 Note HNO ID: [id number] Author: Lex Posada RN Service: ? Author Type: Registered Nurse Type: Progress Notes Filed: 02/02/2023 5:12 PM Note Text: [facility] TELEPHONIC OUTREACH Provider Action/FYI: CDM: CHF/ Asthma Call unable to leave a message to verify symptom status and needs. Contact made with patient: No - Unable to leave message Entered next patient outreach date for the following business day, if third call please enter next outreach date for one week in the Track Pt. Outreach - End Outreach Lex Posada RN January 04, 2023 5:08 PM [facility] 01-04-2023 History of Present illness Narrative [facility] TELEPHONIC OUTREACH Provider Action/FYI: CDM: CHF/ Asthma Call unable to leave a message to verify symptom status and needs, Instructed to call PCP with any changes in symptoms or condition. Contact made with patient: No - Unable to leave message Entered next patient outreach date for the following business day, if third call please enter next outreach date for one week in the Track Pt. Outreach - End Outreach Lex Posada RN January 04, 2023 5:08 PM documented in this encounter [facility] 01-04-2023 Note Patient Outreach (AM [facility]) BAUMANN,STEPH J ([id number]) 1950 M Date Time Provider Department 01/04/23 LEX POSADA During your visit today, we recorded the following information about you: Lex Posada RN 02/02/2023 5:12 PM Addendum [facility] TELEPHONIC OUTREACH Provider Action/FYI: CDM: CHF/ Asthma Call unable to leave a message to verify symptom status and needs. Contact made with patient: No - Unable to leave message Entered next patient outreach date for the following day, if third call please enter next outreach date for one week in the Track Pt. Outreach - End Outreach Lxe Posada RN January 04, 2023 5:08 PM Allergies As of Date: 01/04/2023 Noted Allergy Reaction METFORMIN 12/12/2020 6 - Diarrhea Comments: Even low dose caused diarrhea NORCO (HYDROCODONE-ACETAMINOPHEN) 01/09/2019 5 - Intolerance Comments: Hallucination Date Reviewed: 10/01/2022 Reviewed by: Pam Simpson Ma - Fully Assessed Reason for Visit: Community Monitoring Outreach [Other] Prescriptions as of 02/02/2023 - apixaban (ELIQUIS) 5 mg tab(s) Take 1 tablet by mouth twice daily. - loratadine (CLARITIN) 10 mg tablet Take 1 tablet by mouth once daily as needed. - carvedilol (COREG) 3.125 mg tablet TAKE 1 TABLET BY MOUTH TWICE DAILY WITH MEAL/FOOD - omeprazole (PRILOSEC) 20 mg capsule Take 1 capsule by mouth twice daily. - tamsulosin (FLOMAX) 0.4 mg TAKE 1 CAPSULE BY MOUTH AT BEDTIME - bumetanide (BUMEX) 1 mg tablet Take 1 tablet by mouth once daily. - lisinopril (ZESTRIL, PRINIVIL) 40 mg tablet Take 1 tablet by mouth once daily. - budesonide-formoterol (SYMBICORT) 80-4.5 mcg/actuation inhaler Inhale 2 Puffs as instructed twice daily. - fluticasone-vilanterol (BREO ELLIPTA) 100-25 mcg/dose inhaler Inhale 1 Inhalation as instructed once daily. - insulin glargine (BASAGLAR KWIKPEN U-100 INSULIN) 100 unit/mL (3 mL) Inject 27 Units subcutaneously daily at bedtime. Adjust dose as directed - bicalutamide (CASODEX) 50 mg tablet Take 50 mg by mouth once daily. - blood sugar diagnostic (BLOOD GLUCOSE TEST) test strip Test Two times a day. Insulin Dep? Yes E11.9 DM 2 - Lancets lancets Use as instructed to check blood sugar twice daily .Insulin Dep? Yes E11.9 DM 2 - insulin needles, DISPOSABLE, (PEN NEEDLE) 31 gauge x 5/16 Use one needle per dose. One per day. DX E11.9 Insulin Yes - albuterol HFA (VENTOLIN HFA) 90 mcg/actuation inhaler Inhale 2 Puffs as instructed every 6 hours as needed for wheezing/shortness of breath. - nitroglycerin sublingual (NITROQUICK) 0.4 mg SL tablet Dissolve 1 tablet under the tongue every 5 minutes as needed for Chest Pain. - COMPOUNDED PRESCRIPTION Four point cane Dx: Z86.73, R53.1 - CPAP BiPAP @ 9/13 cm of water with humidification. lifetime supplies. Dx ALBINO - cyanocobalamin (VITAMIN B-12) 1,000 mcg tab Take 1,000 mcg by mouth once daily. - Multivitamin ORAL capsule Take 1 capsule by mouth once daily. Problem List As Of Date 01/04/2023 Noted Resolved Brain tumor (HCC) [D49.6] 12/31/2013 Atrial fibrillation status post cardioversion (*12/31/2013 Cerebral embolism with cerebral infarction (HCC*12/31/2013 Uncontrolled type 2 diabetes mellitus without c*12/31/2013 10/07/2017 Impotence of organic origin [N52.9] 12/31/2013 Obesity, unspecified [E66.9] 12/31/2013 07/29/2022 Pure hypercholesterolemia [E78.00] 12/31/2013 Other constipation [K59.09] 12/31/2013 Special screening for malignant neoplasms, colo*12/31/2013 Debility, unspecified [R53.81] 12/31/2013 Essential and other specified forms of tremor [*12/31/2013 Esophageal reflux [K21.9] 12/31/2013 Essential hypertension, benign [I10] 12/31/2013 Unspecified late effects of cerebrovascular dis*12/31/2013 Apnea [R06.81] 12/31/2013 08/11/2016 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] 12/31/2013 Type II or unspecified type diabetes mellitus w*12/31/2013 04/05/2017 Preoperative examination, unspecified [Z01.818] 12/31/2013 03/08/2016 Rash and other nonspecific skin eruption [R21] 12/31/2013 Abdominal pain, unspecified site [R10.9] 12/31/2013 Pressure ulcer, unspecified site(707.00) [L89.9*12/31/2013 04/05/2017 Class 1 obesity due to excess calories with ser*07/16/2014 08/14/2019 Seizure disorder (HCC) [G40.909] Obesity (BMI 30.0-34.9) [E66.9] 02/24/2017 08/14/2019 History of CVA (cerebrovascular accident) [Z86.*02/24/2017 Sleep apnea [G47.30] 02/24/2017 Chronic anticoagulation [Z79.01] 02/24/2017 Pulmonary hypertension, secondary (HCC) [GDG501*03/10/2017 Typical atrial flutter (HCC) [I48.3] 04/13/2017 ALBINO (obstructive sleep apnea) [G47.33] H/O: stroke [Z86.73] 11/07/2010 H/O brain tumor [Z87.898] Controlled type 2 diabetes mellitus without com*10/07/2017 Stasis edema of both lower extremities [I87.303]04/23/2018 Chronic diastolic CHF (congestive heart f (more content not included)... [facility] 01-03-2023 Note HNO ID: [id number] Author: Lex Posada RN Service: ? Author Type: Registered Nurse Type: Progress Notes Filed: 02/02/2023 5:18 PM Note Text: [facility] CDM TELEPHONIC OUTREACH Provider Action/FYI: CDM: CHF, Asthma Call unable to leave a message to verify symptom status and needs. Contact made with patient: No - Unable to leave message Entered next patient outreach date for the following business day, if third call please enter next outreach date for one week in the Track Pt. Outreach - End Outreach Lex Posada RN January 03, 2023 10:10 AM [facility] 01-03-2023 History of Present illness Narrative [facility] TELEPHONIC OUTREACH Provider Action/FYI: CDM: CHF, Asthma Call unable to leave a message to verify symptom status and needs, Instructed to call PCP with any changes in symptoms or condition. Contact made with patient: No - Unable to leave message Entered next patient outreach date for the following business day, if third call please enter next outreach date for one week in the Track Pt. Outreach - End Outreach Lex Posada RN January 03, 2023 10:10 AM [facility] TELEPH[facility] OUTREACH Provider Action/FYI: CDM: CHF, Asthma Call unable to leave a message to verify symptom status and needs, Instructed to call PCP with any changes in symptoms or condition. Contact made with patient: No - Unable to leave message Entered next patient outreach date for the following business day, if third call please enter next outreach date for one week in the Track Pt. Outreach - End Outreach Lex Posada RN December 30, 2022 12:26 PM documented in this encounter [facility] 12-30-2022 Note HNO ID: [id number] Author: Lex Posada RN Service: ? Author Type: Registered Nurse Type: Progress Notes Filed: 02/02/2023 5:18 PM Note Text: [facility] TELEPHONIC OUTREACH Provider Action/FYI: CDM: CHF, Asthma Call unable to leave a message to verify symptom status and needs.. Contact made with patient: No - Unable to leave message Entered next patient outreach date for the following business day, if third call please enter next outreach date for one week in the Track Pt. Outreach - End Outreach Lex Posada RN December 30, 2022 12:26 PM [facility] 12-30-2022 Note Patient Outreach (AM [facility]) STEPH BAUMANN ([id number]) 1950 Date Time Provider Department 12/30/22 LEX POSADAG During your visit today, we recorded the following information about you: Lex Posada RN 02/02/2023 5:18 PM Addendum [place] [facility] TELEPHONIC OUTREACH Provider Action/FYI: CDM: CHF, Asthma Call unable to leave a message to verify symptom status and needs.. Contact made with patient: No - Unable to leave message Entered next patient outreach date for the following business day, if third call please enter next outreach date for one week in the Track Pt. Outreach - End Outreach Lex Posada RN December 30, 2022 12:26 PM Lex Posada RN 02/02/2023 5:18 PM Addendum [place] [facility] TELEPHONIC OUTREACH Provider Action/FYI: CDM: CHF, Asthma Call unable to leave a message to verify symptom status and needs. Contact made with patient: No - Unable to leave message Entered next patient outreach date for the following business day, if third call please enter next outreach date for one week in the Track Pt. Outreach - End Outreach Lex Posada RN January 03, 2023 10:10 AM Allergies As of Date: 12/30/2022 Noted Allergy Reaction METFORMIN 12/12/2020 6 - Diarrhea Comments: Even low dose caused diarrhea NORCO (HYDROCODONE-ACETAMINOPHEN) 01/09/2019 5 - Intolerance Comments: Hallucination Date Reviewed: 10/01/2022 Reviewed by: Pam Simpson Ma - Fully Assessed Reason for Visit: Community Monitoring Outreach [Other] Prescriptions as of 02/02/2023 - apixaban (ELIQUIS) 5 mg tab(s) Take 1 tablet by mouth twice daily. - loratadine (CLARITIN) 10 mg tablet Take 1 tablet by mouth once daily as needed. - carvedilol (COREG) 3.125 mg tablet TAKE 1 TABLET BY MOUTH TWICE DAILY WITH MEAL/FOOD - omeprazole (PRILOSEC) 20 mg capsule Take 1 capsule by mouth twice daily. - tamsulosin (FLOMAX) 0.4 mg TAKE 1 CAPSULE BY MOUTH AT BEDTIME - bumetanide (BUMEX) 1 mg tablet Take 1 tablet by mouth once daily. - lisinopril (ZESTRIL, PRINIVIL) 40 mg tablet Take 1 tablet by mouth once daily. - budesonide-formoterol (SYMBICORT) 80-4.5 mcg/actuation inhaler Inhale 2 Puffs as instructed twice daily. - fluticasone-vilanterol (BREO ELLIPTA) 100-25 mcg/dose inhaler Inhale 1 Inhalation as instructed once daily. - insulin glargine (BASAGLAR KWIKPEN U-100 INSULIN) 100 unit/mL (3 mL) Inject 27 Units subcutaneously daily at bedtime. Adjust dose as directed - bicalutamide (CASODEX) 50 mg tablet Take 50 mg by mouth once daily. - blood sugar diagnostic (BLOOD GLUCOSE TEST) test strip Test Two times a day. Insulin Dep? Yes E11.9 DM 2 - Lancets lancets Use as instructed to check blood sugar twice daily .Insulin Dep? Yes E11.9 DM 2 - insulin needles, DISPOSABLE, (PEN NEEDLE) 31 gauge x 5/16 Use one needle per dose. One per day. DX E11.9 Insulin Yes - albuterol HFA (VENTOLIN HFA) 90 mcg/actuation inhaler Inhale 2 Puffs as instructed every 6 hours as needed for wheezing/shortness of breath. - nitroglycerin sublingual (NITROQUICK) 0.4 mg SL tablet Dissolve 1 tablet under the tongue every 5 minutes as needed for Chest Pain. - COMPOUNDED PRESCRIPTION Four point cane Dx: Z86.73, R53.1 - CPAP BiPAP @ 9/13 cm of water with humidification. lifetime supplies. Dx ALBINO - cyanocobalamin (VITAMIN B-12) 1,000 mcg tab Take 1,000 mcg by mouth once daily. - Multivitamin ORAL capsule Take 1 capsule by mouth once daily. Problem List As Of Date 12/30/2022 Noted Resolved Brain tumor (HCC) [D49.6] 12/31/2013 Atrial fibrillation status post cardioversion (*12/31/2013 Cerebral embolism with cerebral infarction (HCC*12/31/2013 Uncontrolled type 2 diabetes mellitus without c*12/31/2013 10/07/2017 Impotence of organic origin [N52.9] 12/31/2013 Obesity, unspecified [E66.9] 12/31/2013 07/29/2022 Pure hypercholesterolemia [E78.00] 12/31/2013 Other constipation [K59.09] 12/31/2013 Special screening for malignant neoplasms, colo*12/31/2013 Debility, unspecified [R53.81] 12/31/2013 Essential and other specified forms of tremor [*12/31/2013 Esophageal reflux [K21.9] 12/31/2013 Essential hypertension, benign [I10] 12/31/2013 Unspecified late effects of cerebrovascular dis*12/31/2013 Apnea [R06.81] 12/31/2013 08/11/2016 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 [facility] 12-22-2022 Miscellaneous Notes Okayed Patient has been identified by name and date of : Yes Requested Prescriptions Pending Prescriptions Disp Refills apixaban (ELIQUIS) 5 mg tab(s) 180 tablet 3 Sig: Take 1 tablet by mouth twice daily. loratadine (CLARITIN) 10 mg tablet 90 tablet 3 Sig: Take 1 tablet by mouth once daily as needed. RX INSTRUCTIONS: Patient aware RX escripted to mail away pharmacy. No need to notify patient. Mckenna Deluna Pss documented in this encounter [facility] 11-24-2022 Note HNO ID: [id number] Author: Lex Posada RN Service: ? Author Type: Registered Nurse Type: Progress Notes Filed: 11/24/2022 9:28 AM Note Text: [facility] TELEPHONIC OUTREACH Provider Action/FYI: CDM: CHF 2nd Call unable to leave a message to verify symptom status and needs, Instructed to call PCP with any changes in symptoms or condition. Contact made with patient: No - Unable to leave message Entered next patient outreach date for the following business day, if third call please enter next outreach date for one week in the Track Pt. Outreach - End Outreach Lex Posada RN November 24, 2022 9:25 AM [facility] 11-24-2022 History of Present illness Narrative [facility] TELEPHONIC OUTREACH Provider Action/FYI: CDM: CHF 2nd Call unable to leave a message to verify symptom status and needs, Instructed to call PCP with any changes in symptoms or condition. Contact made with patient: No - Unable to leave message Entered next patient outreach date for the following business day, if third call please enter next outreach date for one week in the Track Pt. Outreach - End Outreach Lex Posada RN November 24, 2022 9:25 AM [facility] TELEPHONIC OUTREACH Provider Action/FYI: CDM: CHF Called Pt, unable to leave a message to verify symptom status and needs, Instructed to call PCP with any changes in symptoms or condition. Contact made with patient: No - Unable to leave message Entered next patient outreach date for the following business day, if third call please enter next outreach date for one week in the Track Pt. Outreach - End Outreach Lex Posada RN November 22, 2022 10:20 AM documented in this encounter [facility] 11-22-2022 Note Patient Outreach (AM [facility]) STEPH BAUMANN ([id number]) 1950 Date Time Provider Department 11/22/22 LEX POSADA During your visit today, we recorded the following information about you: Lex Posada RN 11/24/2022 9:28 AM Signed [facility] TELEPHONIC OUTREACH Provider Action/FYI: CDM: CHF Called Pt, unable to leave a message to verify symptom status and needs, Instructed to call PCP with any changes in symptoms or condition. Contact made with patient: No - Unable to leave message Entered next patient outreach date for the following business day, if third call please enter next outreach date for one week in the Track Pt. Outreach - End Outreach Lex Posada RN November 22, 2022 10:20 AM Lex Posada RN 11/24/2022 9:28 AM Signed [facility] TELEPHONIC OUTREACH Provider Action/FYI: CDM: CHF 2nd Call unable to leave a message to verify symptom status and needs, Instructed to call PCP with any changes in symptoms or condition. Contact made with patient: No - Unable to leave message Entered next patient outreach date for the following business day, if third call please enter next outreach date for one week in the Track Pt. Outreach - End Outreach Lex Posada RN November 24, 2022 9:25 AM Allergies As of Date: 11/22/2022 Noted Allergy Reaction METFORMIN 12/12/2020 6 - Diarrhea Comments: Even low dose caused diarrhea NORCO (HYDROCODONE-ACETAMINOPHEN) 01/09/2019 5 - Intolerance Comments: Hallucination Date Reviewed: 10/01/2022 Reviewed by: Pam Simpson Ma - Fully Assessed Reason for Visit: Community Monitoring Outreach [Other] Prescriptions as of 11/24/2022 - carvedilol (COREG) 3.125 mg tablet TAKE 1 TABLET BY MOUTH TWICE DAILY WITH MEAL/FOOD - omeprazole (PRILOSEC) 20 mg capsule Take 1 capsule by mouth twice daily. - tamsulosin (FLOMAX) 0.4 mg TAKE 1 CAPSULE BY MOUTH AT BEDTIME - bumetanide (BUMEX) 1 mg tablet Take 1 tablet by mouth once daily. - lisinopril (ZESTRIL, PRINIVIL) 40 mg tablet Take 1 tablet by mouth once daily. - apixaban (ELIQUIS) 5 mg tab(s) Take 1 tablet by mouth twice daily. - budesonide-formoterol (SYMBICORT) 80-4.5 mcg/actuation inhaler Inhale 2 Puffs as instructed twice daily. - fluticasone-vilanterol (BREO ELLIPTA) 100-25 mcg/dose inhaler Inhale 1 Inhalation as instructed once daily. - insulin glargine (BASAGLAR KWIKPEN U-100 INSULIN) 100 unit/mL (3 mL) Inject 27 Units subcutaneously daily at bedtime. Adjust dose as directed - bicalutamide (CASODEX) 50 mg tablet Take 50 mg by mouth once daily. - blood sugar diagnostic (BLOOD GLUCOSE TEST) test strip Test Two times a day. Insulin Dep? Yes E11.9 DM 2 - Lancets lancets Use as instructed to check blood sugar twice daily .Insulin Dep? Yes E11.9 DM 2 - insulin needles, DISPOSABLE, (PEN NEEDLE) 31 gauge x 03/22 Use one needle per dose. One per day. DX E11.9 Insulin Yes - albuterol HFA (VENTOLIN HFA) 90 mcg/actuation inhaler Inhale 2 Puffs as instructed every 6 hours as needed for wheezing/shortness of breath. - loratadine (CLARITIN) 10 mg tablet Take 1 tablet by mouth once daily as needed. - nitroglycerin sublingual (NITROQUICK) 0.4 mg SL tablet Dissolve 1 tablet under the tongue every 5 minutes as needed for Chest Pain. - COMPOUNDED PRESCRIPTION Four point cane Dx: Z86.73, R53.1 - CPAP BiPAP @ 9/13 cm of water with humidification. lifetime supplies. Dx ALBINO - cyanocobalamin (VITAMIN B-12) 1,000 mcg tab Take 1,000 mcg by mouth once daily. - Multivitamin ORAL capsule Take 1 capsule by mouth once daily. Problem List As Of Date 11/22/2022 Noted Resolved Brain tumor (HCC) [D49.6] 12/31/2013 Atrial fibrillation status post cardioversion (*12/31/2013 Cerebral embolism with cerebral infarction (HCC*12/31/2013 Uncontrolled type 2 diabetes mellitus without c*12/31/2013 10/07/2017 Impotence of organic origin [N52.9] 12/31/2013 Obesity, unspecified [E66.9] 12/31/2013 07/29/2022 Pure hypercholesterolemia [E78.00] 12/31/2013 Other constipation [K59.09] 12/31/2013 Special screening for malignant neoplasms, colo*12/31/2013 Debility, unspecified [R53.81] 12/31/2013 Essential and other specified forms of tremor [*12/31/2013 Esophageal reflux [K21.9] 12/31/2013 Essential hypertension, benign [I10] 12/31/2013 Unspecified late effects of cerebrovascular dis*12/31/2013 Apnea [R06.81] 12/31/2013 08/11/2016 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 [facility] 11-22-2022 Note HNO ID: [id number] Author: Lex Posada, TISH Service: ? Author Type: Registered Nurse Type: Progress Notes Filed: 11/24/2022 9:28 AM Note Text: INSIGHT CDM TELEPHONIC OUTREACH Provider Action/FYI: CDM: CHF Called Pt, unable to leave a message to verify symptom status and needs, Instructed to call PCP with any changes in symptoms or condition. Contact made with patient: No - Unable to leave message Entered next patient outreach date for the following business day, if third call please enter next outreach date for one week in the Track Pt. Outreach - End Outreach Lex Posada RN November 22, 2022 10:20 AM [facility] 10-19-2022 History of Present illness Narrative [facility] TELEPHONIC OUTREACH Provider Action/FYI: CDM: CHF / Asthma Call to Pt, unable to leave a message. Contact made with patient: No - Unable to leave message Entered next patient outreach date for the following business day, if third call please enter next outreach date for one week in the Track Pt. Outreach - End Outreach Lex Posada RN October 19, 2022 5:51 PM [facility] TELEPHONIC OUTREACH Provider Action/FYI: CDM: CHF / Asthma 10/18/22 Left a message to verify symptom status and needs Contact made with patient: No - Left message Hello my name is Lex Posada RN your Auto Mechanic Supervisor from the [facility] I am calling today for your bi-weekly check in. I am sorry I missed your call. I will reach out to you again tomorrow. (if the third call I will reach out to you again next week) Enter next patient outreach date for the following business day using the Track Pt Outreach. End outreach. Lex Posada RN October 18, 2022 9:58 AM documented in this encounter [facility] 10-04-2022 Miscellaneous Notes Received diabetic supply orders from [facility] . Confirmed with patient, he does not not use this company and buys supplies out of pocket. Disregard future requests. documented in this encounter [facility] 09-15-2022 History of Present illness Narrative [facility] TELEPHONIC OUTREACH Provider Action/FYI: Called Pt left a message to verify CHF/ Asthma or other symptoms and needs. Contact made with patient: No - Left message Scout my name is Lex Posada RN your Auto Mechanic Supervisor from the [facility] I am calling today for your bi-weekly check in. I am sorry I missed your call. I will reach out to you again tomorrow. (if the third call I will reach out to you again next week) Enter next patient outreach date for the following business day using the Track Pt Outreach. End outreach. Lex Posada RN September 15, 2022 1:24 PM documented in this encounter [facility] 09-02-2022 Instructions Margareth Rivas MD - 09/02/2022 12:11 PM EDT Thank you for coming to your visit with Dr. Loredo. Below are some of the things we discussed: Please discuss with your mechanical maintenance instructor the followin) Starting carvedilol 2 times per day (ideal dosage: 6.25mg PO BID; but can start at lower dose and titrate up if tolerated) 2) Switching to a lipophilic statin (ex. Atorvastatin 20mg PO QHS). Please have an ultrasound today and then have it every 6 months. Please have labwork in 6 months prior to your follow-up visit with Dr. Loredo. Please CALL Dr. Loredo with the results of your labwork and ultrasound. Please schedule a follow-up with Dr. Loredo in 6 months. documented in this encounter [facility] 09-02-2022 History of Present illness Narrative HEPATOLOGY CLINIC - ESTABLISHED PATIENT Chief Complaint: Cardiac cirrhosis HPI: Steph Baumann is a 72 year old male who presents for further evaluation of cardiac decompensated cirrhosis c/b pHTN, EV (s/p EGD 2019- Grade I). Last Fibroscan 2018 s/f CAP 128, 31.3kPa. Last visit: 10/08/2021 Since the last visit: - Not seen by cardiology (plan had been to discuss starting Carvedilol as BB) but has an appointment next so will discuss at that time (patient not currently on beta zeeshan therapy; unclear why this was discontinued after the last hospitalization). - He had a mechanical fall in 02/2022 and broke his R hip; s/p R hemiarthroplasty. Has been doing well since then. Did not have any decompensation of his liver disease--no abdominal distension/ascites, no GI bleeding, no episodes of confusion. Has been getting his strength back. Most recent labwork (02/2022; OSH): CMP (02/12/22): Na 138, K 3.5, Cl 108, HCO3 25, BUN 20, Cr 1.24, Tot. Protein 5.5, Albumin 2.6, AST 18, ALT 21, ALP 96, T. Bili 1.9 (direct bili 1.1) CBC (02/19/22): WBC 5.42, Hgb 8.1, Plt 172 Previous liver evaluation: Latest Reference Range & Units 02/14/19 11:32 Hep C Antibody IA Negative Negative Hep A Ab, Total Negative Negative Hep B Surface Ag Negative Negative Hep B Surface Ab, Qual Negative Negative Hep B Core Ab, Total Negative Negative Alpha 1 Antitrypsin 90 - 200 mg/dL 206 (H) Ceruloplasmin 15 - 30 mg/dL 26 by EIA, Qual Negative Negative by EIA OD Ratio 0.7 Mitochondrial Ab Panel Negative Negative Smooth Muscle Ab Panel Negative Negative AFP (02/14/2019): 3.7 RUQ US (10/08/2021): 4mm echogenic lesion in the R hepatic lobe is stable since 01/08/2021. No new hepatic lesion. - First noted on RUQ US from 12/17/2019 (not commented on CTAP in 01/2019) Fibroscan (08/15/2019): CAP 128, 31.3kPa Past Medical History: PAST MEDICAL HISTORY Diagnosis Date Atrial fibrillation (HCC) CVA 2010, attributed to atrial fibrillation. Warfarin since. Esophageal reflux Essential and other specified forms of tremor 12/31/2013 All my life. Essential hypertension, benign H/O brain tumor Benign, resected. H/O right and left heart catheterization H/O: stroke 2010 No functional residual. 04/13/2017. Hypercholesterolemia ICD (implantable cardioverter-defibrillator), biventricular, in situ 10/[address] Gonzáles ALBINO (obstructive sleep apnea) BiPAP, [facility] 07/09/2014. Consistently compliant 04/14/2017. TO Seizure disorder (HCC) Type II or unspecified type diabetes mellitus without mention of complication, uncontrolled Family History: FAMILY HISTORY Problem Relation Age of Onset Diabetes Mother Coronary Artery Disease Mother Thyroid Mother thinks over active Diabetes Child daughter Social History: Social History Tobacco Use Smoking status: Former Packs/day: 0.50 Years: 46.00 Pack years: 23.00 Types: Cigarettes Start date: 1967 Quit date: 07/20/2013 Years since quittin.1 Smokeless tobacco: Never Tobacco comments: Had smoked 40 years 1 PPD every 2 to 3 days (about 20 pack years) Substance Use Topics Alcohol use: No Drug use: No Comment: Remote drugs, quit 1994. Current Outpatient Medications on File Prior to Visit Medication Sig bumetanide (BUMEX) 1 mg tablet Take 1 tablet by mouth once daily. lisinopril (ZESTRIL, PRINIVIL) 40 mg tablet Take 1 tablet by mouth once daily. apixaban (ELIQUIS) 5 mg tab(s) Take 1 tablet by mouth twice daily. budesonide-formoterol (SYMBICORT) 80-4.5 mcg/actuation inhaler Inhale 2 Puffs as instructed twice daily. fluticasone-vilanterol (BREO ELLIPTA) 100-25 mcg/dose inhaler Inhale 1 Inhalation as instructed once daily. insulin glargine (BASAGLAR KWIKPEN U-100 INSULIN) 100 unit/mL (3 mL) Inject 27 Units subcutaneously daily at bedtime. Adjust dose as directed bicalutamide (CASODEX) 50 mg tablet Take 50 mg by mouth once daily. blood sugar diagnostic (BLOOD GLUCOSE TEST) test strip Test Two times a day. Insulin Dep? Yes E11.9 DM 2 Lancets lancets Use as instructed to check blood sugar twice daily .Insulin Dep? Yes E11.9 DM 2 insulin needles, DISPOSABLE, (PEN NEEDLE) 31 gauge x 5/16 Use one needle per dose. One per day. DX E11.9 Insulin Yes albuterol HFA (VENTOLIN HFA) 90 mcg/actuation inhaler Inhale 2 Puffs as instructed every 6 hours as needed for wheezing/shortness of breath. loratadine (CLARITIN) 10 mg tablet Take 1 tablet by mouth once daily as needed. omeprazole (PRILOSEC) 20 mg capsule Take 1 capsule by mouth twice daily. tamsulosin (FLOMAX) 0.4 mg TAKE 1 CAPSULE BY MOUTH AT BEDTIME nitroglycerin sublingual (NITROQUICK) 0.4 mg SL tablet Dissolve 1 tablet under the tongue every 5 minutes as needed for Chest Pain. COMPOUNDED PRESCRIPTION Four point cane Dx: Z86.73, R53.1 CPAP BiPAP @ 9/13 cm of water with humidification. lifetime supplies. Dx ALBINO cyanocobalamin (VITAMIN B-12) 1,000 mcg tab Take 1,000 mcg by mouth once daily. Multivitamin ORAL capsule Take 1 capsule by mouth once daily. topiramate (TOPAMAX) 25 mg tablet Take 2 tablets by mouth twice daily. (Patient not taking: Reported on 02/03/2022 ) No current facility-administered medications on file prior to visit. I have confirmed and edited as necessary, the PFSH and ROS obtained by others. Vitals: BP 116/73 Pulse 70 Temp (Src) 97.7 (Temporal) Ht 5' 9 (1.75m) Wt 171 lb (77.6kg) SpO2 99% BMI 25.24 kg/(m^2). Physical Exam: GENERAL: no apparent distress, pleasant HENT: no lymphadenopathy EYES: no scleral icterus LUNGS: clear to auscultation bilaterally CARDIAC: regular rate and rhythm, normal S1, S2, no murmurs ABDOMEN: no ascites, no hepatosplenomegaly, no tenderness, rebound, or guarding EXTREMITIES: no edema. NEURO: AOx3. No asterixis SKIN: no jaundice Laboratory: CBC Hemoglobin (g/dL) Date Value 01/07/2022 11.7 10/08/2021 14.0 Hematocrit (%) Date Value 01/07/2022 36.0 10/08/2021 41.3 WBC (k/uL) Date Value 01/07/2022 6.89 10/08/2021 8.93 Platelet Count (k/uL) Date Value 01/07/2022 138 10/08/2021 140 CMP Glucose 173 01/12/2022 BUN 21 01/12/2022 Creatinine 1.34 01/12/2022 Sodium 138 01/12/2022 Potassium 4.3 01/12/2022 Chloride 103 01/12/2022 CO2 26 01/12/2022 Protein, Total 7.4 01/07/2022 Albumin 4.0 01/07/2022 Calcium 10.0 01/12/2022 Alkaline Phosphatase 176 01/07/2022 Bilirubin, Total 0.4 01/07/2022 AST 31 01/07/2022 ALT 26 01/07/2022 PT/INR AFP Lab Results Component Value Date AFP 3.7 02/14/2019 Impression/Recommendations Assessment and Plan: In conclusion, Steph Baumann is a 72 year old male with prostate cancer (s/p radiation; on Eligard-leuprolide) who presents for further evaluation of cardiac decompensated cirrhosis c/b pHTN, EV (s/p EGD 2019- Grade I) (Fibroscan 2019, 31.3kPa). Also noted to have small echogenic lesion in R hepatic lobe (currently undergoing surveillance). Overall doing OK s/p mechanical fall with R hip fracture s/p R hemiarthroplasty. No evidence of further decompensation from liver disease at this time but will f/u updated labwork and imaging. - CBC, CMP, INR done today--results pending; will calculated MELD-Na score. Repeat labwork ordered in 6 mo. - Patient to discuss starting carvedilol with mechanical maintenance instructor (ideally 6.25mg PO BID). Patient will also discuss switching to a lipophilic statin for HCC reduction. - HCC screening: Q6mo; Will order now. RUQ US 10/2021- 4mm echogenic lesion in R hepatic lobe (stable since 01/2021), no new hepatic lesion. - EV screening: Not on BB. EGD (2019)- Grade I EV, PHG. - Ascites: none - HE: none Health Maintenance: - Screening Colonoscopy: Last CSP 2013; recommended repeat in 2023. - Hepatitis Vaccination status: Vaccinated for Hep A & Hep B - Influenza Vaccine: Due this year (will get with PCP after Thanksgiving) - PNA Vaccine: Up to date. - Bone density: No results found for: Vit D pending from today. Bone density test up to date per patient. Margareth Rivas MD GI/hepatology fellow I have seen and evaluated the patient and discussed the case with the Fellow. I agree with the assessment and plan as documented in the resident s note. See me in 6 months Home Loredo MD documented in this encounter [facility] 08-13-2022 History of Present illness Narrative [facility]IGHT [facility] TELEPHONIC OUTREACH Provider Action/FYI: Call to Pt, left a message to verify CHF/ Asthma and other symptom status and needs. Contact made with patient: No - Left message Hello my name is Lex Posada RN your Auto Mechanic Supervisor from the [facility] I am calling today for your bi-weekly check in. I am sorry I missed your call. I will reach out to you again tomorrow. (if the third call I will reach out to you again next week) Enter next patient outreach date for the following business day using the Track Pt Outreach. End outreach. Lex Posada RN August 13, 2022 3:13 PM documented in this encounter [facility] 07-29-2022 Miscellaneous Notes Note and letter faxed to [facility] and patient notified. However patient states that he has already has the chair. Print letter and attach Mikki progress note. As noted in prior note, we did not talk about the mobility device, but I referenced the progress note in the letter. That should be adequate for their purchasing the scooter out of pocket. Will addend as needed if able. Pts friend called and is notified of providers message. She states they are paying for it out of pocket, and they only need a script sent over so they can remove the tax. Please let them know when the script has been sent. Kendra Bennett RN If they want the power mobility device covered by insurance, needs an appointment specifically for this device for insurance to cover it. If they plan to just pay out of pocket and just need RX so can get taxes off, I can print order. Since I did not discuss need for a power mobility device in April when I last saw him, I cannot addendum the April progress note to say he needs it. So if needs a progress note saying this even if plans to pay out of pocket, needs an appointment. Atif calling back about this RX being sent with office notes attached that notes patient needs the mobility power operated chair. Please send this to [facility] at fax # [phone] and office number is [phone] Called [facility] this is correct. They just need a prescription for this and then taxes will be voided. Do not know how to enter this to come up this way. Atif Ferraro called back with the phone and fax for [facility]: Atif can be reached at [phone]. Atif Ferraro called in and was reporting that Pt is still having mobility issues from when he fractured his hip in February. She was looking at the [employer] Mobility Scooter at [facility]. She reports if a provider writes a letter for the Pt then they can get the tax paid for. She states the scooter is $2300, but the Pt is scared of falling and with this one he would be able to use it in his apartment. Please call her back and advise. documented in this encounter [facility] 07-20-2022 Miscellaneous Notes Patient unable to make the 40 minute appointment next week on 07/28/2022. Patient added to the wait list and per caregiver Dr. Canales said to let her know if an appointment is way out for the reschedule and she will help get patient back in to see her. Tuesdays and Wednesdays the first week of any month provider will be able to transport patient prefer afternoons late after 3 pm Please call Atif, his caregiver at [phone] Electronically signed by Jessica [facility] at 07/20/2022 11:17 AM EDT documented in this encounter [facility] 06-24-2022 History of Present illness Narrative [facility] TELEPHONIC OUTREACH Provider Action/FYI: Call to Pt, left a message to verify CHF/ Asthma symptoms, and post Rehab status. Contact made with patient: No - Left message Hello my name is Lex Posada RN your Auto Mechanic Supervisor from the [facility] I am calling today for your bi-weekly check in. I am sorry I missed your call. I will reach out to you again tomorrow. (if the third call I will reach out to you again next week) Enter next patient outreach date for the following business day using the Track Pt Outreach. End outreach. Lex Posada RN June 24, 2022 11:38 AM [facility] TELEPHONIC OUTREACH Provider Action/FYI: Call to Pt, unable to leave a message to verify CHF/ Asthma symptoms or needs. Contact made with patient: No - Unable to leave message Entered next patient outreach date for the following business day, if third call please enter next outreach date for one week in the Track Pt. Outreach - End Outreach Lex Posada RN June 23, 2022 1:29 PM documented in this encounter [facility] 06-15-2022 History of Present illness Narrative [facility] [address] [facility] [address] [facility] [id number] Steph Baumann is a 72 y.o. male being seen today, 06/15/22, No chief complaint on file. [chief complaint] status post hemiarthroplasty right hip HPI Dictation: Is over 3 months post surgery he is improved substantially he has minimal pain at this point and x-rays show excellent position of his hemiarthroplasty implant [hpi] Physical Exam Dictation: [PE] is minimal if any pain with passive range involved hip pain x-rays again show excellent positioning Assessment and Plan Dictation: [AP] activity as pain allows return in apparent basis I have reviewed all relevant histories, medications, allergies, and problem list items with Steph Baumann during this visit. Review of Systems Constitutional: Negative for chills and fever. HENT: Negative for congestion. Respiratory: Negative for shortness of breath. Cardiovascular: Negative for chest pain. Gastrointestinal: Negative for diarrhea, nausea and vomiting. Neurological: Negative for headaches. Psychiatric/Behavioral: Negative for behavioral problems. Ht 5' 9 Wt 79.4 kg (175 lb) BMI 25.84 kg/m Imaging: No results found. 1. Status post hip hemiarthroplasty Return if symptoms worsen or fail to improve. Munira Dickerson MD documented in this encounter [facility] 06-15-2022 Miscellaneous Notes LM notifying Lexx Jerome hamlin Lexx from [facility] calling boubacar for PT, plan of care 2 visits weekly for 3 weeks working on fall prevention. Patient was recently in [facility] ER for high blood sugars. documented in this encounter [facility] 2022 History of Present illness Narrative [facility] TELEPHONIC OUTREACH Provider Action/FYI: Call to Pt related to CHF/ Asthma, unable to leave a message. Contact made with patient: No - Unable to leave message Entered next patient outreach date for the following business day, if third call please enter next outreach date for one week in the Track Pt. Outreach - End Outreach Lex Posada RN 2022 10:03 AM [facility] TELEPHONIC OUTREACH Provider Action/FYI: Call to Pt, left a message related to CHF/ Asthma symptoms or needs. Contact made with patient: No - Left message Hello my name is Lex Posada RN your Auto Mechanic Supervisor from the [facility] I am calling today for your bi-weekly check in. I am sorry I missed your call. I will reach out to you again tomorrow. (if the third call I will reach out to you again next week) Enter next patient outreach date for the following business day using the Track Pt Outreach. End outreach. Lex Posada RN June 07, 2022 11:27 AM documented in this encounter [facility] 05-20-2022 History of Present illness Narrative [facility] TELEPHONIC OUTREACH Provider Action/FYI: Call to Pt left a message to verify CHF/ Asthma symptoms or needs. Contact made with patient: No - Left message Hello my name is Lex Posada RN your Auto Mechanic Supervisor from the [facility] I am calling today for your bi-weekly check in. I am sorry I missed your call. I will reach out to you again tomorrow. (if the third call I will reach out to you again next week) Enter next patient outreach date for the following business day using the Track Pt Outreach. End outreach. Lex Posada RN May 20, 2022 1:55 PM INSIGHT [facility] TELEPHONIC OUTREACH Provider Action/FYI: Call to Pt left a message to verify CHF/ Asthma symptoms or needs. Contact made with patient: No - Left message Hello my name is Lex Posada RN your Auto Mechanic Supervisor from the [facility] I am calling today for your bi-weekly check in. I am sorry I missed your call. I will reach out to you again tomorrow. (if the third call I will reach out to you again next week) Enter next patient outreach date for the following business day using the Track Pt Outreach. End outreach. Lex Posada RN May 19, 2022 9:09 AM documented in this encounter [facility] 05-19-2022 Miscellaneous Notes Okayed Patient calling back, he and his POA confirmed they have called [facility] directly. Electronically signed by Jessica [facility] at 05/19/2022 12:46 PM EDT Patient has been identified by name and date of : Yes Pending Prescriptions Disp Refills BUMETANIDE 1 MG TABLET 90 tablet 3 Sig: Take 1 tablet by mouth once daily. KEERTHI: No LISINOPRIL 40 MG TABLET 90 tablet 3 Sig: Take 1 tablet by mouth once daily. KEERTHI: No APIXABAN 5 MG TABLET 180 tablet 3 Sig: Take 1 tablet by mouth twice daily. KEERTHI: No RX INSTRUCTIONS: Called and verified with the Pharmacy that these need new prescriptions; Left patient a message that he needs to call [facility] and re-establish his account with them since his POA put the account on hold while he was at a rehab facillity/hospital. Patient aware RX will be sent to pharmacy. No need to notify patient. Megan Rosales Pss documented in this encounter [facility] 05-18-2022 History of Present illness Narrative [facility] [address]) [facility] [address] [facility] [phone] Steph Baumann is a 71 y.o. male being seen today, 05/18/22, No chief complaint on file. [chief complaint] status post hemiarthroplasty right hip HPI Dictation: Man seen in follow-up on his last visit as concerned about a possible compression deformity of L2 MRI recommended over not done because some metal in his brain is here with a caregiver who indicates he has improved since his last visit get around much better in therapy taking only occasional tramadol [hpi] with x-rays showing excellent position of his hemiarthroplasty into Physical Exam Dictation: [PE] no if any pain with passive range involved hip Assessment and Plan Dictation: [AP] plan continue PT tramadol as needed return in 4 weeks light factors improving we will delay considering a bone scan I have reviewed all relevant histories, medications, allergies, and problem list items with Steph Baumann during this visit. Review of Systems Constitutional: Negative for chills and fever. HENT: Negative for congestion. Respiratory: Negative for shortness of breath. Cardiovascular: Negative for chest pain. Gastrointestinal: Negative for diarrhea, nausea and vomiting. Neurological: Negative for headaches. Psychiatric/Behavioral: Negative for behavioral problems. There were no vitals taken for this visit. Imaging: No results found. 1. Hip fracture requiring operative repair, right, closed, initial encounter ([facility]) 2. Low back pain without sciatica, unspecified back pain laterality, unspecified chronicity Return in about 4 weeks (around 06/15/2022). Munira Dickerson MD documented in this encounter [facility] 05-13-2022 Miscellaneous Notes Friend Atif notified that handipcap placard is ready for garbage pick up man in medical records and she verbalized understanding ok Friend (Atif) calls to request a prescription for a handicap placard d/t patient receiving a letter from [facility] stating he needs an updated order. Pended per request. Atif will garbage pick up man in medical records when ready and requests calling her at [phone]. Cyndee Hill RN documented in this encounter [facility] 05-04-2022 Miscellaneous Notes Sent request to Medical Records at [facility] to send over Medication list from [facility]. Having them send to fax # [phone]. Atif returns call after speaking with patient. Patient reports he is no longer having any anxiety and feels good. Patient doesn't want an appointment at this time. Cyndee Hill RN Atif called and is notified of providers message and instructions. She voices understanding and feels the Pt is doing much better, but is going to call him and see if he would want to come in for an appointment. She states she would like to keep him on as less medication as possible. Kendra Bennett RN With his liver, cardiac, asthma and history of heart failure, should be seen to discuss management of anxiety and make sure that is the issue. Do we have list of meds was given when in TCU? Atif Ferraro calls on behalf of patient. Patient was seen in [facility] ER for chest pain. Patient was worked up in the ER. Per Atif ER thinks it is more anxiety than cardiac. While on TCU patient was prescribed something for anxiety. Atif asking if provider can send in a prescription to help with anxiety to [facility] pharmacy? Please review and advise, Samina Watt RN documented in this encounter [facility] 04-21-2022 History of Present illness Narrative INSIGHT [facility] TELEPHONIC OUTREACH Provider Action/FYI: Spk with Pt, he denies new or worsening CHF / Asthma symptoms or concerns Contact made with patient: Yes Patient identified by name and . Discussed care with patient It s nice talking to you again. As a reminder, this is our bi-weekly check-in where I will be asking you questions about your health. This will only take a few minutes of your time. Is this a good time? Yes Symptoms What Chronic Disease(s) does the patient have: CHF and COPD Do you check your blood pressures at home? No Do you have new or worse shortness of breath with activity? No Do you have new or worsening trouble breathing while lying flat? No Do you have new or worsening swelling of legs, feet or ankles? No Do you check your daily weight at home? Yes, Have you noticed a sudden gain in weight greater than three pounds in a day or three pounds in a week? No and Do you have new or worsening cough? No Do you have new or worsening wheezing? No Do you need to use your rescue (Albuterol) inhaler or nebulizer more often than normal? No Are you having any other symptoms that your PCP needs to know about? No Symptom Escalation The patient required an escalation for symptom(s)? No Medications Do you have any questions about taking your medication or which medications you should be on? No Do you need any medication refills at this time, including any of the medications you might take only when needed? No Social We would like to make sure you have what you need so that your basic needs are met- including your personal safety, food, housing and medications? Would you like to speak with a social work steamblaster to help give you support for any of these needs? No It can be normal to feel anxious or down during a time like this. Would you like to talk to a mental health professional about how you have been feeling? No Closing Thank you for taking the time to talk with me today. We want to work with you to ensure that we are keeping your medical condition(s) well-controlled and to keep you healthy and out of the doctor's office or hospital. It s also not too late for me to sign you up for automated weekly questionnaires through [employer]. This is an easy way for us to stay connected each week. Are you interested? No, I understand. We can always sign you up in the future if you change your mind. Just as a reminder, will continue to call you every other week to check in on your health. Our calls should take 10-15 minutes or less. Remember, if you have concerns in between our calls, please call your PCP's office right away. Thank you. Enter next patient outreach date for two weeks on the same day of the week as today in the Track Pt Outreach and End outreach. Lex Posada RN April 21, 2022 1:16 PM documented in this encounter [facility] 04-16-2022 History of Present illness Narrative Primary Care Pharmacy Visit REASON FOR CONSULT: DM GOALS: A1c < 8% CONSULTING PROVIDER: Olga Styles APRN.COMMUNITY SERVICE COORDINATOR Date of Consult: 01/08/22 Steph Baumann is a 71 year old male presenting for follow up visit by telephone. Patient consents to pharmacy collaborative practice agreement. Last seen by Olga Styles APRN.REHAN on 01/12/22. At last COMMUNITY SERVICE COORDINATOR appt, patient was encouraged to follow up with [facility]. At that visit provider also noted that spironolactone was stopped, and bumex dose decreased due to hypotension, was encouraged to recheck BMP. At PharmD visit on 02/02/22, blood sugar testing supplies were ordered, and clarified medication discrepancies with cardiology. INTERIM HISTORY: Since last visit, patient had hip fracture and was following at [facility]. Discharged home on 04/14 Patient reports his readings are doing well . States fasting BG this morning was 124 mg/dL Has been taking insulin at dose 27 units daily Does not have lo of BG as just discharged from rehab 2 days ago. Current DM Medications: Insulin glargine 29 units once daily - Taking differently: 27 unit daily Preventative Medications: On ETHAN/ARB: Yes On Statin: No GLYCEMIC CONTROL: SMBG s: No SMBG log to review Hypoglycemia: none ROS: Patient denies CP, SOB, SIMMS, blurred vision, dizziness or lightheadedness Patient denies nausea, vomiting, diarrhea, abdominal pain Patient denies symptoms of hypoglycemia (sweating, anxiety, palpitations, hunger, and tremor) Patient denies symptoms of hyperglycemia (polyuria, polydipsia, polyphagia) Patient denies potential medication adverse effects DIET/EXERCISE/SOCIAL Hx: Breakfast: bowl or cereal with banana Lunch: oatmeal Dinner: frozen food, pizza casserole Snacks: cheese its, popcorn, cottage, pickles Beverages: water, soda (sprite, 2 cans per day) Exercise: Cubbe petal exercises MEDICATIONS: Pill bottles are not present. Adherence: denies missed doses. 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) Rash and Other Nonspecific Skin Eruption Abdominal Pain, Unspecified Site Seizure Disorder (Hcc) History of Cva (Cerebrovascular Accident) Sleep Apnea Chronic Anticoagulation Pulmonary Hypertension, Secondary Typical Atrial Flutter (Hcc) Albino (Obstructive Sleep Apnea) H/O: Stroke H/O Brain Tumor Controlled Type 2 Diabetes Mellitus Without Complication, With Long-Term Current Use of Insulin (Hcc) Stasis Edema of Both Lower Extremities Chronic Diastolic Chf (Congestive Heart Failure) (Hcc) Cirrhosis of Liver With Ascites (Hcc) Hypoalbuminemia Mild Intermittent Asthma Without Complication Status Post Biventricular Pacemaker On Continuous Oral Anticoagulation St Elevation Myocardial Infarction (Stemi) (Hcc) Acute On Chronic Combined Systolic and Diastolic Chf (Congestive Heart Failure) (Hcc) Benign Prostatic Hyperplasia With Weak Urinary Stream Prostate Cancer (Hcc) PAST MEDICAL HISTORY Diagnosis Date Atrial fibrillation (HCC) CVA 2010, attributed to atrial fibrillation. Warfarin since. Esophageal reflux Essential and other specified forms of tremor 12/31/2013 All my life. Essential hypertension, benign H/O brain tumor Benign, resected. H/O right and left heart catheterization H/O: stroke 2010 No functional residual. 04/13/2017. Hypercholesterolemia ICD (implantable cardioverter-defibrillator), biventricular, in situ 10/[address] Gonzáles ALBINO (obstructive sleep apnea) BiPAP, [facility] 07/09/2014. Consistently compliant 04/14/2017. TO Seizure disorder (HCC) Type II or unspecified type diabetes mellitus without mention of complication, uncontrolled ALLERGIES Allergen Reactions Metformin Diarrhea Even low dose caused diarrhea [place] [Hydrocodone-* Intolerance Hallucination Current Outpatient Medications Medication Sig bicalutamide (CASODEX) 50 mg tablet Take 50 mg by mouth once daily. blood sugar diagnostic (BLOOD GLUCOSE TEST) test strip Test Two times a day. Insulin Dep? Yes E11.9 DM 2 Lancets lancets Use as instructed to check blood sugar twice daily .Insulin Dep? Yes E11.9 DM 2 insulin needles, DISPOSABLE, (PEN NEEDLE) 31 gauge x 5/16 Use one needle per dose. One per day. DX E11.9 Insulin Yes insulin glargine (BASAGLAR KWIKPEN U-100 INSULIN) 100 unit/mL (3 mL) Inject 29 Units subcutaneously daily at bedtime. Adjust dose as directed bumetanide (BUMEX) 1 mg tablet Take 1 tablet by mouth once daily. albuterol HFA (VENTOLIN HFA) 90 mcg/actuation inhaler Inhale 2 Puffs as instructed every 6 hours as needed for wheezing/shortness of breath. loratadine (CLARITIN) 10 mg tablet Take 1 tablet by mouth once daily as needed. omeprazole (PRILOSEC) 20 mg capsule Take 1 capsule by mouth twice daily. topiramate (TOPAMAX) 25 mg tablet Take 2 tablets by mouth twice daily. (Patient not taking: Reported on 02/03/2022 ) tamsulosin (FLOMAX) 0.4 mg TAKE 1 CAPSULE BY MOUTH AT BEDTIME lisinopril (ZESTRIL, PRINIVIL) 40 mg tablet Take 1 tablet by mouth once daily. nitroglycerin sublingual (NITROQUICK) 0.4 mg SL tablet Dissolve 1 tablet under the tongue every 5 minutes as needed for Chest Pain. apixaban (ELIQUIS) 5 mg tab(s) Take by mouth twice daily. COMPOUNDED PRESCRIPTION Four point cane Dx: Z86.73, R53.1 CPAP BiPAP @ 9/13 cm of water with humidification. lifetime supplies. Dx ALBINO cyanocobalamin (VITAMIN B-12) 1,000 mcg tab Take 1,000 mcg by mouth once daily. Multivitamin ORAL capsule Take 1 capsule by mouth once daily. No current facility-administered medications for this visit. EXAM: Last 3 Encounter BP Readings: Date: BP: 01/12/2022 116/80 01/07/2022 75/50[average[ 10/13/2021 136/76 Wt: 77.5 kg (170 lb 12.8 oz) BMI: 25.22 kg/(m^2) LABS: Lab Results Component Value Date HBA1C 11.1 01/07/2022 HBA1C 9.6 03/26/2021 HBA1C 7.7 12/11/2020 HBA1C 7.1 04/02/2020 CMP: Glucose 173 01/12/2022 BUN 21 01/12/2022 Creatinine 1.34 01/12/2022 Sodium 138 01/12/2022 Potassium 4.3 01/12/2022 Chloride 103 01/12/2022 CO2 26 01/12/2022 Protein, Total 7.4 01/07/2022 Albumin 4.0 01/07/2022 Calcium 10.0 01/12/2022 Alkaline Phosphatase 176 01/07/2022 Bilirubin, Total 0.4 01/07/2022 AST 31 01/07/2022 ALT 26 01/07/2022 EGFR: 57 mL/min/1.73m2 No results found for: B12 Lab Results Component Value Date CHOL 141 03/26/2021 LDL 86 03/26/2021 HDL 36 03/26/2021 TG 93 03/26/2021 The ASCVD Risk score (Onelgianna COWART Jr., et al., 2013) failed to calculate for the following reasons: The patient has a prior NM or stroke diagnosis Albumin/Creat Ratio (mg/g) Date Value 11/06/2019 24 PHARMACOTHERAPY ASSESSMENT/PLAN: 1. Controlled type 2 diabetes mellitus without complication, with long-term current use of insulin ([facility]) - ICD9: 250.00, V58.67, ICD10: E11.9, Z79.4 A1c goal < 8%; not at goal (last A1c 11.1%); Patient reports improving BG readings; denies s/sx hypoglycemia; denies s/sx hyperglycemia; Patient taking lower dose of insulin as was adjusted at rehab facility. Today, will continue current regimen and recheck A1c with upcoming labs. Renal function and LFTs appropriate for continued use ADJUSTED Insulin glargine 27 units once daily to reflect current dose. HbA1c: due now Follow up: Patient is scheduled to see PCP on 04/28/22. Patient to follow up with PharmD, TBD once labs result Patient verbalized understanding of instructions. Jana Lara PharmD, BCACP Primary Care Clinical Pharmacist [facility] The majority of the pharmacy visit (> 50%) was spent counseling and/or coordinating care for the patient. [Telephonic] time was 16 minutes. documented in this encounter [facility] 04-08-2022 Miscellaneous Notes Order called back to [facility]. Will follow Jasmyne from [facility] reports pt will be discharging from TCU at [facility] on 04/14/22 following a right hip fx. Will need nursing & PT, will pcp follow? Kayleigh Hummel LPN documented in this encounter [facility] 04-06-2022 History of Present illness Narrative PRIMARY CARE COORDINATION QUICK NOTE Provider Action/FYI Routed update to Dr. Canales Spk with Pt he anticipates to be discharged to home from [facility] on 04/14/22, Instructed to schedule follow up Appt with Dr. Canales/ Olga Styles, he verbalized understanding and appreciation for the follow-up. Patient identified by name and date . Lex Posada RN April 06, 2022 4:15 PM documented in this encounter [facility] 04-01-2022 Miscellaneous Notes Noted, will follow up with patient at scheduled visit time. Jana Lara PharmD, ELACP Primary Care Clinical Pharmacist [facility] Atif returned your call. Patient is at [facility] for a broken hip and doing physical therapy. Tentative discharge date is 04/14/22 and a follow up appointment has been scheduled for 04/16. If there are any issues or concerns, please call Atif at [phone]. Samina Smith Patient cancelled last pharmacy visit and is due for diabetes follow up to review blood sugars. Called and spoke with patient to offer pharmacy visit. Patient states he relies on caregiver Atif to make appts. Called and Left voicemail for Atif asking to return call to [phone] to schedule pharmacy visit. Jana Lara PharmD, ELACP Primary Care Clinical Pharmacist [facility] documented in this encounter [facility] 03-26-2022 History of Present illness Narrative noted, monitor for discharge to SNF/home. Obtain records when available. [facility] TELEPHONIC OUTREACH Provider Action/FYI: Routed update to Dr. Canales- No Action required Spk with Pt he reported fall with fracture of Right Hip, he noted surgical repair, is currently at [facility], undetermined Length of Stay. Contact made with patient: Yes Patient identified by name and . Discussed care with patient It s nice talking to you again. As a reminder, this is our bi-weekly check-in where I will be asking you questions about your health. This will only take a few minutes of your time. Is this a good time? Yes Lex Posada RN March 26, 2022 2:33 PM [facility] TELEPHONIC OUTREACH Provider Action/FYI: Call to Pt to verify symptom status and needs. Contact made with patient: No - Left message Hello my name is Lex Posada RN your Auto Mechanic Supervisor from the [facility] I am calling today for your bi-weekly check in. I am sorry I missed your call. I will reach out to you again tomorrow. (if the third call I will reach out to you again next week) Enter next patient outreach date for the following business day using the Track Pt Outreach. End outreach. Lex Posada RN March 25, 2022 4:41 PM documented in this encounter [facility] 03-23-2022 History of Present illness Narrative [facility] [address]) [facility] [address] [facility] [id number] Steph Baumann is a 71 y.o. male being seen today, 03/23/22, Chief Complaint Patient presents with Right Hip - Follow-up Post-op [chief complaint] status post hemiarthroplasty right hip with persistent right lower back buttock HPI Dictation: Patient here for routine follow-up surgery performed 6 weeks prior x-rays show good position of his hemiarthroplasty implant he is comparing to however significant buttock pain with x-rays lumbar spine obtained showing a questionable compression deformity of L2 [hpi] Physical Exam Dictation: [PE] nonirritable with passive range there is no significant anterior thigh and groin pain the primary pain seems to be in the buttock today Assessment and Plan Dictation: [AP] I did recommend a lumbar MRI with recommendations to follow I have reviewed all relevant histories, medications, allergies, and problem list items with Steph Baumann during this visit. Review of Systems Constitutional: Negative for chills and fever. HENT: Negative for congestion. Respiratory: Negative for shortness of breath. Cardiovascular: Negative for chest pain. Gastrointestinal: Negative for diarrhea, nausea and vomiting. Neurological: Negative for headaches. Psychiatric/Behavioral: Negative for behavioral problems. Ht 5' 9 Wt 74.4 kg (164 lb) BMI 24.22 kg/m Imaging: XR Hip Right 2-3 Views (Routine) Result Date: 03/23/2022 EXAMINATION: XR HIP RIGHT 2-3 VIEWS (ROUTINE) HISTORY: ORDERING SYSTEM PROVIDED HISTORY: PAIN, TECHNOLOGIST PROVIDED HISTORY: Illness/Other Reason for exam: POST OP RIGHT HIP SX 02/13/22 Cancer History: Surgery, RadiationHistory: Encounter Type: Initial Additional signs and symptoms: ORDERING SYSTEM PROVIDED DIAGNOSIS CODES: R52 Pain COMPARISON: None FINDINGS: Two views of the right hip. Postoperative changes of right hip hemiarthroplasty. Hardware components are well seated with appropriate alignment. No periprosthetic fractures. Intact right hip replacement. [employer] Workstation ID: [id number] 1. Hip fracture requiring operative repair, right, closed, initial encounter ([facility]) 2. Low back pain without sciatica, unspecified back pain laterality, unspecified chronicity Return for post mri. Munira Dickerson MD documented in this encounter [facility] 03-16-2022 History of Present illness Narrative INSIGHT CDM TELEPHONIC OUTREACH Provider Action/FYI: Call to Pt left a message to verify CHF/ Asthma symptom status and needs Contact made with patient: No - Left message Scout my name is Lex Posada RN your Auto Mechanic Supervisor from the [facility] I am calling today for your bi-weekly check in. I am sorry I missed your call. I will reach out to you again tomorrow. (if the third call I will reach out to you again next week) Enter next patient outreach date for the following business day using the Track Pt Outreach. End outreach. Lex Posada RN March 16, 2022 4:30 PM [facility] TELEPHONIC OUTREACH Provider Action/FYI: Call to Pt left a message to verify CHF/ Asthma symptom status and needs Contact made with patient: No - Left message Hello my name is Lex Posada RN your Auto Mechanic Supervisor from the [facility] I am calling today for your bi-weekly check in. I am sorry I missed your call. I will reach out to you again tomorrow. (if the third call I will reach out to you again next week) Enter next patient outreach date for the following business day using the Track Pt Outreach. End outreach. Lex Posada RN March 15, 2022 1:51 PM documented in this encounter [facility] 03-03-2022 History of Present illness Narrative [facility] TELEPHONIC OUTREACH Provider Action/FYI: Call to Pt left a message to verify CHF/ Asthma symptoms and needs. Contact made with patient: No - Left message Hello my name is Lex Posada RN your Auto Mechanic Supervisor from the [facility] I am calling today for your bi-weekly check in. I am sorry I missed your call. I will reach out to you again tomorrow. (if the third call I will reach out to you again next week) Enter next patient outreach date for the following business day using the Track Pt Outreach. End outreach. Lex Posada RN March 03, 2022 11:16 AM documented in this encounter [facility] 02-24-2022 History of Present illness Narrative WILBER FROM [facility] CALLED STATING THERE WAS SOME ISSUES IN TRANSPORTATION. PT HAD APPT ON 03/01 AND HAD TO BE MOVED TO 03/09 AND PT BRYANNA WOULD BE IN FOR ALMOST 3 WEEKS.THEY WILL TAKE BRYANNA OUT ON 03/01 AND WILL GET A RT HIP 2-3 VIEW XRAY AT THERE FACILITY AND FX THE XRAY REPORT TO US AND WE WILL CALL WITH ANY OTHER CHANGES AND AT THAT TIME A F/U CAN BE MADE FOR 4 WEEKS. documented in this encounter [facility] 02-22-2022 History of Present illness Narrative INSIGHT CDM TELEPHONIC OUTREACH Provider Action/FYI: Call to Pt left a message to verify CHF / Asthma or other symptoms. Contact made with patient: No - Left message Hello my name is Lex Posada RN your Auto Mechanic Supervisor from the [facility] I am calling today for your bi-weekly check in. I am sorry I missed your call. I will reach out to you again tomorrow. (if the third call I will reach out to you again next week) Enter next patient outreach date for the following business day using the Track Pt Outreach. End outreach. Lex Posada RN February 22, 2022 9:13 AM documented in this encounter [facility] 02-12-2022 Miscellaneous Notes Appt cancelled per patient request. Jana Lara, RachD, BCACP Primary Care Clinical Pharmacist [facility] Ok, monitor for discharge and reschedule as appropriate. EDGAR Samuel for pt called to let you know pt fell on 02-09-22 and fractured his hip. Was at [facility] then transferred to [facility]. He is still there as of 02-12-22 and not sure what is going to be done next. He has an phone apt scheduled with you Jeannei on 02-16-22 and they are cancelling this for now. If you want you can reach Atif Ferraro at [phone]. Sending to PCP as FYI. Jazmin Tejeda LPN documented in this encounter [facility] 02-05-2022 History of Present illness Narrative [facility] TELEPHONIC OUTREACH Provider Action/FYI: Call to Pt left a message to verify CHF/ Asthma symptom status. Contact made with patient: No - Left message Rosaregis my name is Lex Posada RN your Auto Mechanic Supervisor from the [facility] I am calling today for your bi-weekly check in. I am sorry I missed your call. I will reach out to you again tomorrow. (if the third call I will reach out to you again next week) Enter next patient outreach date for the following business day using the Track Pt Outreach. End outreach. Lex Posada RN February 05, 2022 4:26 PM [facility] TELEPHONIC OUTREACH Provider Action/FYI: Call to Pt left a message to verify CHF/ Asthma symptom status. Contact made with patient: No - Left message Scout my name is Lex Posada RN your Auto Mechanic Supervisor from the [facility] I am calling today for your bi-weekly check in. I am sorry I missed your call. I will reach out to you again tomorrow. (if the third call I will reach out to you again next week) Enter next patient outreach date for the following business day using the Track Pt Outreach. End outreach. 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 Was only given lancets at pharmacy. Pharmacist states glucometer and test strip rx both need sig adjusted for medicare criteria. Resent corrected scripts. The following approved medication requests have been transmitted electronically. Signed Prescriptions Disp Refills Blood-Glucose Meter 1 Each 0 Sig: Test Two times a day. Insulin Dep? Yes E11.9 DM 2 Authorizing Provider: OLGA STYLES Ordering User: JANA LARA blood sugar diagnostic (BLOOD GLUCOSE TEST) test strip 200 Strip 4 Sig: Test Two times a day. Insulin Dep? Yes E11.9 DM 2 Authorizing Provider: OLGA STYLES Ordering User: JANA LARA, PharmD, BCACP Primary Care Clinical Pharmacist Marlen[facility] documented in this encounter [facility] 02-02-2022 Miscellaneous Notes Khoi is asking for directions on glucose meter. Dot Escoto LPN Khoi with [facility] calls to report the directions on lancets have twice daily and as needed. Khoi reports that Medicare does not allow as needed . Rx has to say specific number of times a day. Resend rx. Patient has been identified by name and date of : Yes Pending Prescriptions Disp Refills LANCETS 200 Each 3 Sig: Use as instructed to check blood sugar twice daily .Insulin Dep? Yes E11.9 DM 2 KEERTHI: No RX INSTRUCTIONS: Pharmacy initiated this request. No need to notify patient. Reina Mcgee LPN documented in this encounter [facility] 02-02-2022 History of Present illness Narrative Primary Care Pharmacy Visit REASON FOR CONSULT: DM GOALS: A1c < 8% CONSULTING PROVIDER: Olga Styles APRN.COMMUNITY SERVICE COORDINATOR Date of Consult: 01/08/22 Steph Baumann is a 71 year old male presenting for initial visit: This initial consult was conducted by telephone with the patient where the consult agreement was explained. The patient may decline or cancel the agreement at any time. After consideration, the patient consented to the pharmacy consult agreement and agreed to allow medications be collaboratively managed by a pharmacist. Last seen by Olga Styles APRN.COMMUNITY SERVICE COORDINATOR on 01/12/22. At last COMMUNITY SERVICE COORDINATOR appt, patient was encouraged to follow up with [facility]. At that visit provider also noted that spironolactone was stopped, and bumex dose decreased due to hypotension, was encouraged to recheck BMP. INTERIM HISTORY: Pt requesting new testing supplies He is undergoing radiation and finds that blood sugars have been elevated at times Blood sugar readings improving (see log below) Current DM Medications: Insulin glargine 29 units once daily Preventative Medications: On ETHAN/ARB: Yes On Statin: No GLYCEMIC CONTROL: Glucometer present at visit: n/a phone visit SMBG s: Date Fasting AM 2 hr PP Before Lunch 2 hr PP Before Dinner 2 hr PP Bedtime 02/02 101 02/01 141 01/31 150 01/30 135 01/29 122 01/28 164 01/27 135 01/26 199 Hypoglycemia: denies ROS: Patient denies CP, SOB, SIMMS, blurred vision, dizziness or lightheadedness Patient denies nausea, vomiting, diarrhea, abdominal pain Patient denies symptoms of hypoglycemia (sweating, anxiety, palpitations, hunger, and tremor) Patient denies symptoms of hyperglycemia (polyuria, polydipsia, polyphagia) Patient denies potential medication adverse effects DIET/EXERCISE/SOCIAL Hx: Breakfast: bowl or cereal with banana Lunch: oatmeal Dinner: frozen food, pizza casserole Snacks: cheese its, popcorn, cottage, pickles Beverages: water, soda (sprite, 2 cans per day) Exercise: Cubbe petal exercises MEDICATIONS: Pill bottles are not present. Adherence: denies missed doses. 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) Rash and Other Nonspecific Skin Eruption Abdominal Pain, Unspecified Site Seizure Disorder (Hcc) History of Cva (Cerebrovascular Accident) Sleep Apnea Chronic Anticoagulation Pulmonary Hypertension, Secondary Typical Atrial Flutter (Hcc) Albino (Obstructive Sleep Apnea) H/O: Stroke H/O Brain Tumor Controlled Type 2 Diabetes Mellitus Without Complication, With Long-Term Current Use of Insulin (Hcc) Stasis Edema of Both Lower Extremities Chronic Diastolic Chf (Congestive Heart Failure) (Hcc) Cirrhosis of Liver With Ascites (Hcc) Hypoalbuminemia Mild Intermittent Asthma Without Complication Status Post Biventricular Pacemaker On Continuous Oral Anticoagulation St Elevation Myocardial Infarction (Stemi) (Hcc) Acute On Chronic Combined Systolic and Diastolic Chf (Congestive Heart Failure) (Hcc) Benign Prostatic Hyperplasia With Weak Urinary Stream Prostate Cancer (Hcc) PAST MEDICAL HISTORY Diagnosis Date Atrial fibrillation (HCC) CVA 2010, attributed to atrial fibrillation. Warfarin since. Esophageal reflux Essential and other specified forms of tremor 12/31/2013 All my life. Essential hypertension, benign H/O brain tumor Benign, resected. H/O right and left heart catheterization H/O: stroke 2010 No functional residual. 04/13/2017. Hypercholesterolemia ICD (implantable cardioverter-defibrillator), biventricular, in situ 10/[address] Gonzáles ALBINO (obstructive sleep apnea) BiPAP, [facility] 07/09/2014. Consistently compliant 04/14/2017. TO Seizure disorder (HCC) Type II or unspecified type diabetes mellitus without mention of complication, uncontrolled ALLERGIES Allergen Reactions Metformin Diarrhea Even low dose caused diarrhea [place] [Hydrocodone-* Intolerance Hallucination Medication List Medication Directions Comments Action/Plan albuterol HFA (VENTOLIN HFA) 90 mcg/actuation inhaler Inhale 2 Puffs as instructed every 6 hours as needed for wheezing/shortness of breath. PRN apixaban (ELIQUIS) 5 mg tab(s) Take by mouth twice daily. Taking as directed aspirin, enteric coated (ECOTRIN LOW STRENGTH) 81 mg EC tablet Take 1 tablet by mouth once daily. Not taking, states it was discontinued d/t on Eliquis Removed from list blood sugar diagnostic (BLOOD GLUCOSE TEST) test strip Check 2 to 3 times daily as directed. E11.9, Z79.4 Insulin: yes blood sugar diagnostic (FREESTYLE TEST) test strip Use as directed to check blood sugar 2 to 3 times a day bumetanide (BUMEX) 1 mg tablet Take 1 tablet by mouth once daily. Taking as directed COMPOUNDED PRESCRIPTION Four point cane Dx: Z86.73, R53.1 CPAP BiPAP @ 9/13 cm of water with humidification. lifetime supplies. Dx ALBINO cyanocobalamin (VITAMIN B-12) 1,000 mcg tab Take 1,000 mcg by mouth once daily. Taking as directed flash glucose scanning reader (FREESTYLE HERMINIO 2 READER) Check sugars as directed at least 4 times daily. E11.65, Z79.4 Patient not taking: Reported on 04/08/2021 flash glucose sensor (FREESTYLE HERMINIO 2 SENSOR) kit Change every 14 days. E11.65, Z79.4 Patient not taking: Reported on 04/08/2021 insulin glargine (BASAGLAR KWIKPEN U-100 INSULIN) 100 unit/mL (3 mL) Inject 29 Units subcutaneously daily at bedtime. Adjust dose as directed Taking as directed insulin needles, DISPOSABLE, (PEN NEEDLE) 31 gauge x 5/16 Use one needle per dose. One per day. DX E11.9 Insulin Yes lancets (FREESTYLE LANCETS) 28 gauge misc Use as directed to check blood sugar 2 to 3 times a day Lancets lancets Test blood sugar(s) 2 to 3 times daily. Dx: Type 2 DM - Controlled E11.9 Insulin: Yes lisinopril (ZESTRIL, PRINIVIL) 40 mg tablet Take 1 tablet by mouth once daily. Taking as directed loratadine (CLARITIN) 10 mg tablet Take 1 tablet by mouth once daily as needed. Patient not taking: Reported on 10/13/2021 Taking as directed Multivitamin ORAL capsule Take 1 capsule by mouth once daily. Taking as directed nitroglycerin sublingual (NITROQUICK) 0.4 mg SL tablet Dissolve 1 tablet under the tongue every 5 minutes as needed for Chest Pain. PRN omeprazole (PRILOSEC) 20 mg capsule Take 1 capsule by mouth twice daily. Taking as directed sotalol (BETAPACE) 120 mg tablet Take 1 tablet by mouth twice daily. (cardiology) Not taking, states it was stopped by cardiology and switched to nadolol Med list updated tamsulosin (FLOMAX) 0.4 mg TAKE 1 CAPSULE BY MOUTH AT BEDTIME Taking as directed topiramate (TOPAMAX) 25 mg tablet Take 2 tablets by mouth twice daily. They are in his pill pack but he reports not taking States he does not have seizures anymore and does not need this medication Encouraged him to take as prescribed, has not been discontinued by other providers Other RX medications: Nadolol 20 mg - 10 mg once daily, bicalutamide 50 mg once daily - Added to med list EXAM: Last 3 Encounter BP Readings: Date: BP: 01/12/2022 116/80 01/07/2022 75/50[average[ 10/13/2021 136/76 Wt: 77.5 kg (170 lb 12.8 oz) BMI: 25.22 kg/(m^2) LABS: Lab Results Component Value Date HBA1C 11.1 01/07/2022 HBA1C 9.6 03/26/2021 HBA1C 7.7 12/11/2020 HBA1C 7.1 04/02/2020 CMP: Glucose 173 01/12/2022 BUN 21 01/12/2022 Creatinine 1.34 01/12/2022 Sodium 138 01/12/2022 Potassium 4.3 01/12/2022 Chloride 103 01/12/2022 CO2 26 01/12/2022 Protein, Total 7.4 01/07/2022 Albumin 4.0 01/07/2022 Calcium 10.0 01/12/2022 Alkaline Phosphatase 176 01/07/2022 Bilirubin, Total 0.4 01/07/2022 AST 31 01/07/2022 ALT 26 01/07/2022 Serum creatinine: 1.34 mg/dL (H) 01/12/22 1455 Estimated creatinine clearance: 52 mL/min (A) No results found for: B12 Lab Results Component Value Date CHOL 141 03/26/2021 LDL 86 03/26/2021 HDL 36 03/26/2021 TG 93 03/26/2021 The ASCVD Risk score ([place] SUPA Keith., et al., 2013) failed to calculate for the following reasons: The patient has a prior NM or stroke diagnosis Albumin/Creat Ratio (mg/g) Date Value 11/06/2019 24 PHARMACOTHERAPY ASSESSMENT/PLAN: 1. Controlled type 2 diabetes mellitus without complication, with long-term current use of insulin ([facility]) - ICD9: 250.00, V58.67, ICD10: E11.9, Z79.4 A1c goal < 8%; not at goal (last A1c 11.1%); SMBG improving on current regimen; denies s/sx hypoglycemia; denies s/sx hyperglycemia; BG readings showing only control of BG at fasting, will instruct patient to begin monitoring blood sugars twice daily to also assess post prandial BG control. Ordering new testing supplies. Renal function and LFTs appropriate for continued use CONTINUE Insulin glargine 29 units once daily HbA1c: due 04/09/22 - BLOOD-GLUCOSE METER - BLOOD GLUCOSE TEST STRIPS - LANCETS 2. Medication management - ICD9: V58.69, ICD10: Z79.899 Reviewed name, strength, route, frequency and time of administration of medications. Medication list updated as described in above medication chart. - Several discrepancies identified with cardiology medications. Will contact external cardiology provider - [facility] for clarification. See telephone encounter for medication clarification Follow up: Patient is scheduled to see PCP on 03/29/22. Patient to follow up with PharmD on 02/16/22. Patient verbalized understanding of instructions. Jana Lara PharmD, BCACP Primary Care Clinical Pharmacist [facility] The majority of the pharmacy visit (> 50%) was spent counseling and/or coordinating care for the patient. [Face to Face] time was 57 minutes. documented in this encounter [facility] 05-16-2021 Miscellaneous Notes Below noted. Grateful for the FYI from [facility]. Per our scales, he had lost weight from January of this year to February. Stable within 5 pounds since February. Rapid weight loss from January to February from diuresis in hospital (acute CHF and ascites). Looking farther back, it looks like his dry weight is around 150s. Last 10 Encounter Wt Readings: Date: Wt: 04/08/2021 68.9 kg (151 lb 12.8 oz) 04/03/2021 67.1 kg (148 lb) 03/09/2021 64.4 kg (142 lb) 02/13/2021 68.9 kg (152 lb) 01/22/2021 78.1 kg (172 lb 3.2 oz) 01/08/2021 78.5 kg (173 lb) 11/22/2019 73.9 kg (163 lb) 11/06/2019 70.8 kg (156 lb) 10/25/2019 71.7 kg (158 lb) 09/28/2019 82.6 kg (182 lb) [facility]- reports patient's weight is 147 pounds today. She believes patient may have lost 30 pounds since January. Our weight checks: 04-08-21: 151 # 04-03-21: 148 # 02-13-21: 152 # 01-08-21: 173 # 05-28-20: 171 # documented in this encounter [facility] documented as of this encounter (statuses as of 10/04/2022) [facility]03-[facility] History of Past illness Narrative* Problem Noted Date Resolved Date 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 Continue present meds. Doing well with better diet and watching salt and taking diuretic as prescribed. Follow up with Dr. Gonzáles. Obesity (BMI 30.0-34.9) 02/24/2017 08/14/20 19 Class 1 obesity due to exces s calories with serious comorbidity and body mass index (BMI) of 32.0 to 32.9 in adult 07/16/2014 08/14/2019 Uncontrolled type 2 diabetes mellitus without complication, with long-term current use of insulin 12/31/2013 10/07/2017 Overview: Hx Obesity, unspecified 12/31/2013 07/29/2022 Overview: Hx BMI 30-39.9 Apnea 12/31/2013 08/11/2016 Overview: Hx Type II or unspecified type diabetes mellitus without mention of complication, uncontrolled 12/31/2013 04/05/2017 Overview: Hx Preoperative examination, unspecified 12/31/2013 03/08/2016 Overview: Hx Pressure ulcer, unspecified site(707.00) 014 04/05/2017 Overview: Hx documented as of this encounter (statuses as of 10/11/2022) [facility] History of Past illness Narrative* Problem Noted Date Resolved Date 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 Continue present meds. Doing well with better diet and watching salt and taking diuretic as prescribed. Follow up with Dr. Gonzáles. Obesity (BMI 30.0-34.9) 02/24/2017 08/14/20 19 Class 1 obesity due to exces s calories with serious comorbidity and body mass index (BMI) of 32.0 to 32.9 in adult 07/16/2014 08/14/2019 Uncontrolled type 2 diabetes mellitus without complication, with long-term current use of insulin 12/31/2013 10/07/2017 Overview: Hx Obesity, unspecified 12/31/2013 07/29/2022 Overview: Hx BMI 30-39.9 Apnea 12/31/2013 08/11/2016 Overview: Hx Type II or unspecified type diabetes mellitus without mention of complication, uncontrolled 12/31/2013 04/05/2017 Overview: Hx Preoperative examination, unspecified 12/31/2013 03/08/2016 Overview: Hx Pressure ulcer, unspecified site(707.00) 014 04/05/2017 Overview: Hx documented as of this encounter (statuses as of 10/19/2022) [facility] History of Past illness Narrative* Problem Noted Date Resolved Date 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 Continue present meds. Doing well with better diet and watching salt and taking diuretic as prescribed. Follow up with Dr. Gonzáles. Obesity (BMI 30.0-34.9) 02/24/2017 08/14/20 19 Class 1 obesity due to exces s calories with serious comorbidity and body mass index (BMI) of 32.0 to 32.9 in adult 07/16/2014 08/14/2019 Uncontrolled type 2 diabetes mellitus without complication, with long-term current use of insulin 12/31/2013 10/07/2017 Overview: Hx Obesity, unspecified 12/31/2013 07/29/2022 Overview: Hx BMI 30-39.9 Apnea 12/31/2013 08/11/2016 Overview: Hx Type II or unspecified type diabetes mellitus without mention of complication, uncontrolled 12/31/2013 04/05/2017 Overview: Hx Preoperative examination, unspecified 12/31/2013 03/08/2016 Overview: Hx Pressure ulcer, unspecified site(707.00) 014 04/05/2017 Overview: Hx documented as of this encounter (statuses as of 11/24/2022) [facility] History of Past illness Narrative* Problem Noted Date Resolved Date 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 Continue present meds. Doing well with better diet and watching salt and taking diuretic as prescribed. Follow up with Dr. Gonzáles. Obesity (BMI 30.0-34.9) 02/24/2017 08/14/20 19 Class 1 obesity due to exces s calories with serious comorbidity and body mass index (BMI) of 32.0 to 32.9 in adult 07/16/2014 08/14/2019 Uncontrolled type 2 diabetes mellitus without complication, with long-term current use of insulin 12/31/2013 10/07/2017 Overview: Hx Obesity, unspecified 12/31/2013 07/29/2022 Overview: Hx BMI 30-39.9 Apnea 12/31/2013 08/11/2016 Overview: Hx Type II or unspecified type diabetes mellitus without mention of complication, uncontrolled 12/31/2013 04/05/2017 Overview: Hx Preoperative examination, unspecified 12/31/2013 03/08/2016 Overview: Hx Pressure ulcer, unspecified site(707.00) 014 04/05/2017 Overview: Hx documented as of this encounter (statuses as of 12/23/2022) [facility] History of Past illness Narrative* Problem Noted Date Resolved Date 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 Continue present meds. Doing well with better diet and watching salt and taking diuretic as prescribed. Follow up with Dr. Gonzáles. Obesity (BMI 30.0-34.9) 02/24/2017 08/14/20 19 Class 1 obesity due to exces s calories with serious comorbidity and body mass index (BMI) of 32.0 to 32.9 in adult 07/16/2014 08/14/2019 Uncontrolled type 2 diabetes mellitus without complication, with long-term current use of insulin 12/31/2013 10/07/2017 Overview: Hx Obesity, unspecified 12/31/2013 07/29/2022 Overview: Hx BMI 30-39.9 Apnea 12/31/2013 08/11/2016 Overview: Hx Type II or unspecified type diabetes mellitus without mention of complication, uncontrolled 12/31/2013 04/05/2017 Overview: Hx Preoperative examination, unspecified 12/31/2013 03/08/2016 Overview: Hx Pressure ulcer, unspecified site(707.00) 014 04/05/2017 Overview: Hx documented as of this encounter (statuses as of 01/03/2023) [facility] History of Past illness Narrative* Problem Noted Date Resolved Date 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 Continue present meds. Doing well with better diet and watching salt and taking diuretic as prescribed. Follow up with Dr. Gonzáles. Obesity (BMI 30.0-34.9) 02/24/2017 08/14/20 19 Class 1 obesity due to exces s calories with serious comorbidity and body mass index (BMI) of 32.0 to 32.9 in adult 07/16/2014 08/14/2019 Uncontrolled type 2 diabetes mellitus without complication, with long-term current use of insulin 12/31/2013 10/07/2017 Overview: Hx Obesity, unspecified 12/31/2013 07/29/2022 Overview: Hx BMI 30-39.9 Apnea 12/31/2013 08/11/2016 Overview: Hx Type II or unspecified type diabetes mellitus without mention of complication, uncontrolled 12/31/2013 04/05/2017 Overview: Hx Preoperative examination, unspecified 12/31/2013 03/08/2016 Overview: Hx Pressure ulcer, unspecified site(707.00) 014 04/05/2017 Overview: Hx documented as of this encounter (statuses as of 01/05/2023) [facility] History of Past illness Narrative* Problem Noted Date Resolved Date 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 Continue present meds. Doing well with better diet and watching salt and taking diuretic as prescribed. Follow up with Dr. Gonzáles. Obesity (BMI 30.0-34.9) 02/24/2017 08/14/20 19 Class 1 obesity due to exces s calories with serious comorbidity and body mass index (BMI) of 32.0 to 32.9 in adult 07/16/2014 08/14/2019 Uncontrolled type 2 diabetes mellitus without complication, with long-term current use of insulin 12/31/2013 10/07/2017 Overview: Hx Obesity, unspecified 12/31/2013 07/29/2022 Overview: Hx BMI 30-39.9 Apnea 12/31/2013 08/11/2016 Overview: Hx Type II or unspecified type diabetes mellitus without mention of complication, uncontrolled 12/31/2013 04/05/2017 Overview: Hx Preoperative examination, unspecified 12/31/2013 03/08/2016 Overview: Hx Pressure ulcer, unspecified site(707.00) 014 04/05/2017 Overview: Hx documented as of this encounter (statuses as of 02/02/2023) [facility] History of Past illness Narrative* Problem Noted Date Resolved Date 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 Continue present meds. Doing well with better diet and watching salt and taking diuretic as prescribed. Follow up with Dr. Gonzáles. Obesity (BMI 30.0-34.9) 02/24/2017 08/14/20 19 Class 1 obesity due to exces s calories with serious comorbidity and body mass index (BMI) of 32.0 to 32.9 in adult 07/16/2014 08/14/2019 Uncontrolled type 2 diabetes mellitus without complication, with long-term current use of insulin 12/31/2013 10/07/2017 Overview: Hx Obesity, unspecified 12/31/2013 07/29/2022 Overview: Hx BMI 30-39.9 Apnea 12/31/2013 08/11/2016 Overview: Hx Type II or unspecified type diabetes mellitus without mention of complication, uncontrolled 12/31/2013 04/05/2017 Overview: Hx Preoperative examination, unspecified 12/31/2013 03/08/2016 Overview: Hx Pressure ulcer, unspecified site(707.00) 014 04/05/2017 Overview: Hx documented as of this encounter (statuses as of 02/10/2023) [facility] History of Past illness Narrative* Problem Noted Date Resolved Date 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 Continue present meds. Doing well with better diet and watching salt and taking diuretic as prescribed. Follow up with Dr. Gonzáles. Obesity (BMI 30.0-34.9) 02/24/2017 08/14/20 19 Class 1 obesity due to exces s calories with serious comorbidity and body mass index (BMI) of 32.0 to 32.9 in adult 07/16/2014 08/14/2019 Uncontrolled type 2 diabetes mellitus without complication, with long-term current use of insulin 12/31/2013 10/07/2017 Overview: Hx Obesity, unspecified 12/31/2013 07/29/2022 Overview: Hx BMI 30-39.9 Apnea 12/31/2013 08/11/2016 Overview: Hx Type II or unspecified type diabetes mellitus without mention of complication, uncontrolled 12/31/2013 04/05/2017 Overview: Hx Preoperative examination, unspecified 12/31/2013 03/08/2016 Overview: Hx Pressure ulcer, unspecified site(707.00) 014 04/05/2017 Overview: Hx documented as of this encounter (statuses as of 02/25/2023) [facility] History of Past illness Narrative* Problem Noted Date Resolved Date 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 Continue present meds. Doing well with better diet and watching salt and taking diuretic as prescribed. Follow up with Dr. Gonzáles. Obesity (BMI 30.0-34.9) 02/24/2017 08/14/20 19 Class 1 obesity due to exces s calories with serious comorbidity and body mass index (BMI) of 32.0 to 32.9 in adult 07/16/2014 08/14/2019 Uncontrolled type 2 diabetes mellitus without complication, with long-term current use of insulin 12/31/2013 10/07/2017 Overview: Hx Obesity, unspecified 12/31/2013 07/29/2022 Overview: Hx BMI 30-39.9 Apnea 12/31/2013 08/11/2016 Overview: Hx Type II or unspecified type diabetes mellitus without mention of complication, uncontrolled 12/31/2013 04/05/2017 Overview: Hx Preoperative examination, unspecified 12/31/2013 03/08/2016 Overview: Hx Pressure ulcer, unspecified site(707.00) 014 04/05/2017 Overview: Hx documented as of this encounter (statuses as of 03/10/2023) [facility] History of Past illness Narrative* Problem Noted Date Resolved Date 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 Continue present meds. Doing well with better diet and watching salt and taking diuretic as prescribed. Follow up with Dr. Gonzáles. Obesity (BMI 30.0-34.9) 02/24/2017 08/14/20 19 Class 1 obesity due to exces s calories with serious comorbidity and body mass index (BMI) of 32.0 to 32.9 in adult 07/16/2014 08/14/2019 Uncontrolled type 2 diabetes mellitus without complication, with long-term current use of insulin 12/31/2013 10/07/2017 Overview: Hx Obesity, unspecified 12/31/2013 07/29/2022 Overview: Hx BMI 30-39.9 Apnea 12/31/2013 08/11/2016 Overview: Hx Type II or unspecified type diabetes mellitus without mention of complication, uncontrolled 12/31/2013 04/05/2017 Overview: Hx Preoperative examination, unspecified 12/31/2013 03/08/2016 Overview: Hx Pressure ulcer, unspecified site(707.00) 014 04/05/2017 Overview: Hx documented as of this encounter (statuses as of 03/10/2023) [facility] History of Past illness Narrative* Problem Noted Date Resolved Date 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 Continue present meds. Doing well with better diet and watching salt and taking diuretic as prescribed. Follow up with Dr. Gonzáles. Obesity (BMI 30.0-34.9) 02/24/2017 08/14/20 19 Class 1 obesity due to exces s calories with serious comorbidity and body mass index (BMI) of 32.0 to 32.9 in adult 07/16/2014 08/14/2019 Uncontrolled type 2 diabetes mellitus without complication, with long-term current use of insulin 12/31/2013 10/07/2017 Overview: Hx Obesity, unspecified 12/31/2013 07/29/2022 Overview: Hx BMI 30-39.9 Apnea 12/31/2013 08/11/2016 Overview: Hx Type II or unspecified type diabetes mellitus without mention of complication, uncontrolled 12/31/2013 04/05/2017 Overview: Hx Preoperative examination, unspecified 12/31/2013 03/08/2016 Overview: Hx Pressure ulcer, unspecified site(707.00) 014 04/05/2017 Overview: Hx documented as of this encounter (statuses as of 03/15/2023) [facility] History of Past illness Narrative* Problem Noted Date Resolved Date 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 Continue present meds. Doing well with better diet and watching salt and taking diuretic as prescribed. Follow up with Dr. Gonzáles. Obesity (BMI 30.0-34.9) 02/24/2017 08/14/20 19 Class 1 obesity due to exces s calories with serious comorbidity and body mass index (BMI) of 32.0 to 32.9 in adult 07/16/2014 08/14/2019 Uncontrolled type 2 diabetes mellitus without complication, with long-term current use of insulin 12/31/2013 10/07/2017 Overview: Hx Obesity, unspecified 12/31/2013 07/29/2022 Overview: Hx BMI 30-39.9 Apnea 12/31/2013 08/11/2016 Overview: Hx Type II or unspecified type diabetes mellitus without mention of complication, uncontrolled 12/31/2013 04/05/2017 Overview: Hx Preoperative examination, unspecified 12/31/2013 03/08/2016 Overview: Hx Pressure ulcer, unspecified site(707.00) 014 04/05/2017 Overview: Hx documented as of this encounter (statuses as of 04/11/2023) [facility] History of Past illness Narrative* Problem Noted Date Resolved Date 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 Continue present meds. Doing well with better diet and watching salt and taking diuretic as prescribed. Follow up with Dr. Gonzáles. Obesity (BMI 30.0-34.9) 02/24/2017 08/14/20 19 Class 1 obesity due to exces s calories with serious comorbidity and body mass index (BMI) of 32.0 to 32.9 in adult 07/16/2014 08/14/2019 Uncontrolled type 2 diabetes mellitus without complication, with long-term current use of insulin 12/31/2013 10/07/2017 Overview: Hx Obesity, unspecified 12/31/2013 07/29/2022 Overview: Hx BMI 30-39.9 Apnea 12/31/2013 08/11/2016 Overview: Hx Type II or unspecified type diabetes mellitus without mention of complication, uncontrolled 12/31/2013 04/05/2017 Overview: Hx Preoperative examination, unspecified 12/31/2013 03/08/2016 Overview: Hx Pressure ulcer, unspecified site(707.00) 014 04/05/2017 Overview: Hx documented as of this encounter (statuses as of 04/12/2023) [facility] History of Past illness Narrative* Problem Noted Date Resolved Date 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 Continue present meds. Doing well with better diet and watching salt and taking diuretic as prescribed. Follow up with Dr. Gonzáles. Obesity (BMI 30.0-34.9) 02/24/2017 08/14/20 19 Class 1 obesity due to exces s calories with serious comorbidity and body mass index (BMI) of 32.0 to 32.9 in adult 07/16/2014 08/14/2019 Uncontrolled type 2 diabetes mellitus without complication, with long-term current use of insulin 12/31/2013 10/07/2017 Overview: Hx Obesity, unspecified 12/31/2013 07/29/2022 Overview: Hx BMI 30-39.9 Apnea 12/31/2013 08/11/2016 Overview: Hx Type II or unspecified type diabetes mellitus without mention of complication, uncontrolled 12/31/2013 04/05/2017 Overview: Hx Preoperative examination, unspecified 12/31/2013 03/08/2016 Overview: Hx Pressure ulcer, unspecified site(707.00) 014 04/05/2017 Overview: Hx documented as of this encounter (statuses as of 04/13/2023) [facility] History of Past illness Narrative* Problem Noted Date Resolved Date 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 Continue present meds. Doing well with better diet and watching salt and taking diuretic as prescribed. Follow up with Dr. Gonzáles. Obesity (BMI 30.0-34.9) 02/24/2017 08/14/20 19 Class 1 obesity due to exces s calories with serious comorbidity and body mass index (BMI) of 32.0 to 32.9 in adult 07/16/2014 08/14/2019 Uncontrolled type 2 diabetes mellitus without complication, with long-term current use of insulin 12/31/2013 10/07/2017 Overview: Hx Obesity, unspecified 12/31/2013 07/29/2022 Overview: Hx BMI 30-39.9 Apnea 12/31/2013 08/11/2016 Overview: Hx Type II or unspecified type diabetes mellitus without mention of complication, uncontrolled 12/31/2013 04/05/2017 Overview: Hx Preoperative examination, unspecified 12/31/2013 03/08/2016 Overview: Hx Pressure ulcer, unspecified site(707.00) 014 04/05/2017 Overview: Hx documented as of this encounter (statuses as of 04/13/2023) [facility] History of Past illness Narrative* Problem Noted Date Resolved Date 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 Continue present meds. Doing well with better diet and watching salt and taking diuretic as prescribed. Follow up with Dr. Gonzáles. Obesity (BMI 30.0-34.9) 02/24/2017 08/14/20 19 Class 1 obesity due to exces s calories with serious comorbidity and body mass index (BMI) of 32.0 to 32.9 in adult 07/16/2014 08/14/2019 Uncontrolled type 2 diabetes mellitus without complication, with long-term current use of insulin 12/31/2013 10/07/2017 Overview: Hx Obesity, unspecified 12/31/2013 07/29/2022 Overview: Hx BMI 30-39.9 Apnea 12/31/2013 08/11/2016 Overview: Hx Type II or unspecified type diabetes mellitus without mention of complication, uncontrolled 12/31/2013 04/05/2017 Overview: Hx Preoperative examination, unspecified 12/31/2013 03/08/2016 Overview: Hx Pressure ulcer, unspecified site(707.00) 014 04/05/2017 Overview: Hx documented as of this encounter (statuses as of 04/13/2023) [facility]03-26-2021 History of Past illness Narrative* Problem Noted Date Resolved Date 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 Continue present meds. Doing well with better diet and watching salt and taking diuretic as prescribed. Follow up with Dr. Gonzáles. Obesity (BMI 30.0-34.9) 02/24/2017 08/14/20 19 Class 1 obesity due to exces s calories with serious comorbidity and body mass index (BMI) of 32.0 to 32.9 in adult 07/16/2014 08/14/2019 Uncontrolled type 2 diabetes mellitus without complication, with long-term current use of insulin 12/31/2013 10/07/2017 Overview: Hx Obesity, unspecified 12/31/2013 07/29/2022 Overview: Hx BMI 30-39.9 Apnea 12/31/2013 08/11/2016 Overview: Hx Type II or unspecified type diabetes mellitus without mention of complication, uncontrolled 12/31/2013 04/05/2017 Overview: Hx Preoperative examination, unspecified 12/31/2013 03/08/2016 Overview: Hx Pressure ulcer, unspecified site(707.00) 014 04/05/2017 Overview: Hx documented as of this encounter (statuses as of 04/22/2023) [facility]03-26-[facility]21 History of Past illness Narrative* Problem Noted Date Resolved Date 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 Continue present meds. Doing well with better diet and watching salt and taking diuretic as prescribed. Follow up with Dr. Gonzáles. Obesity (BMI 30.0-34.9) 02/24/2017 08/14/20 Class 1 obesity due to exces s calories with serious comorbidity and body mass index (BMI) of 32.0 to 32.9 in adult 07/16/2014 08/14/2019 Uncontrolled type 2 diabetes mellitus without complication, with long-term current use of insulin 12/31/2013 10/07/2017 Overview: Hx Obesity, unspecified 12/31/2013 07/29/2022 Overview: Hx BMI 30-39.9 Apnea 12/31/2013 08/11/2016 Overview: Hx Type II or unspecified type diabetes mellitus without mention of complication, uncontrolled 12/31/2013 04/05/2017 Overview: Hx Preoperative examination, unspecified 12/31/2013 03/08/2016 Overview: Hx Pressure ulcer, unspecified site(707.00) 014 04/05/2017 Overview: Hx documented as of this encounter (statuses as of 04/25/2023) [facility]03-26-[facility]21 History of Past illness Narrative* Problem Noted Date Diagnosed Date Resolved Date 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 Continue present meds. Doing well with better diet and watching salt and taking diuretic as prescribed. Follow up with Dr. Gonzáles. Obesity (BMI 30.0-34.9) 02/24/201706/2019 Class 1 obesity due to exces s calories with serious comorbidity and body mass index (BMI) of 32.0 to 32.9 in adult 07/16/2014 08/14/2019 Uncontrolled type 2 diabetes mellitus without complication, with long-term current use of insulin 12/31/2013 10/07/2017 Overview: Hx Obesity, unspecified 12/31/2013 022 Overview: Hx BMI 30-39.9 Apnea 12/31/2013 08/11/2016 Overview: Hx Type II or unspecified type diabetes mellitus without mention of complication, uncontrolled 12/31/2013 04/05/2017 Overview: Hx Preoperative examination, unspecified 12/31/2013 03/08/2016 Overview: Hx Pressure ulcer, unspecified site(707.00) 12/31/2013 04/05/2017 Overview: Hx documented as of this encounter (statuses as of 06/28/2023) [facility]03-[facility]21 History of Past illness Narrative* Problem Noted Date Diagnosed Date Resolved Date 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 Continue present meds. Doing well with better diet and watching salt and taking diuretic as prescribed. Follow up with Dr. Gonzáles. Obesity (BMI 30.0-34.9) 02/24/201706/2019 Class 1 obesity due to exces s calories with serious comorbidity and body mass index (BMI) of 32.0 to 32.9 in adult 07/16/2014 08/14/2019 Uncontrolled type 2 diabetes mellitus without complication, with long-term current use of insulin 12/31/2013 10/07/2017 Overview: Hx Obesity, unspecified 12/31/2013 022 Overview: Hx BMI 30-39.9 Apnea 12/31/2013 08/11/2016 Overview: Hx Type II or unspecified type diabetes mellitus without mention of complication, uncontrolled 12/31/2013 04/05/2017 Overview: Hx Preoperative examination, unspecified 12/31/2013 03/08/2016 Overview: Hx Pressure ulcer, unspecified site(707.00) 12/31/2013 04/05/2017 Overview: Hx documented as of this encounter (statuses as of 07/22/2023) [facility]03-[facility]2021 History of Past illness Narrative* Problem Noted Date Diagnosed Date Resolved Date 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 Continue present meds. Doing well with better diet and watching salt and taking diuretic as prescribed. Follow up with Dr. Gonzáles. Obesity (BMI 30.0-34.9) 02/24/201706/2019 Class 1 obesity due to exces s calories with serious comorbidity and body mass index (BMI) of 32.0 to 32.9 in adult 07/16/2014 08/14/2019 Uncontrolled type 2 diabetes mellitus without complication, with long-term current use of insulin 12/31/2013 10/07/2017 Overview: Hx Obesity, unspecified 12/31/2013 022 Overview: Hx BMI 30-39.9 Apnea 12/31/2013 08/11/2016 Overview: Hx Type II or unspecified type diabetes mellitus without mention of complication, uncontrolled 12/31/2013 04/05/2017 Overview: Hx Preoperative examination, unspecified 12/31/2013 03/08/2016 Overview: Hx Pressure ulcer, unspecified site(707.00) 12/31/2013 04/05/2017 Overview: Hx documented as of this encounter (statuses as of 08/13/2023) [facility]03-[facility]21 History of Past illness Narrative* Problem Noted Date Diagnosed Date Resolved Date 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 Continue present meds. Doing well with better diet and watching salt and taking diuretic as prescribed. Follow up with Dr. Gonzáles. Obesity (BMI 30.0-34.9) 02/24/201706/2019 Class 1 obesity due to exces s calories with serious comorbidity and body mass index (BMI) of 32.0 to 32.9 in adult 07/16/2014 08/14/2019 Uncontrolled type 2 diabetes mellitus without complication, with long-term current use of insulin 12/31/2013 10/07/2017 Overview: Hx Obesity, unspecified 12/31/2013 022 Overview: Hx BMI 30-39.9 Apnea 12/31/2013 08/11/2016 Overview: Hx Type II or unspecified type diabetes mellitus without mention of complication, uncontrolled 12/31/2013 04/05/2017 Overview: Hx Preoperative examination, unspecified 12/31/2013 03/08/2016 Overview: Hx Pressure ulcer, unspecified site(707.00) 12/31/2013 04/05/2017 Overview: Hx documented as of this encounter (statuses as of 09/06/2023) [facility]03-26[facility]2021 History of Past illness Narrative* Problem Noted Date Diagnosed Date Resolved Date 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 Continue present meds. Doing well with better diet and watching salt and taking diuretic as prescribed. Follow up with Dr. Gonzáles. Obesity (BMI 30.0-34.9) 02/24/201706/2019 Class 1 obesity due to exces s calories with serious comorbidity and body mass index (BMI) of 32.0 to 32.9 in adult 07/16/2014 08/14/2019 Uncontrolled type 2 diabetes mellitus without complication, with long-term current use of insulin 12/31/2013 10/07/2017 Overview: Hx Obesity, unspecified 12/31/2013 022 Overview: Hx BMI 30-39.9 Apnea 12/31/2013 08/11/2016 Overview: Hx Type II or unspecified type diabetes mellitus without mention of complication, uncontrolled 12/31/2013 04/05/2017 Overview: Hx Preoperative examination, unspecified 12/31/2013 03/08/2016 Overview: Hx Pressure ulcer, unspecified site(707.00) 12/31/2013 04/05/2017 Overview: Hx documented as of this encounter (statuses as of 09/15/2023) [facility]03-[facility]21 History of Past illness Narrative* Problem Noted Date Diagnosed Date Resolved Date 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 Continue present meds. Doing well with better diet and watching salt and taking diuretic as prescribed. Follow up with Dr. Gonzáles. Obesity (BMI 30.0-34.9) 02/24/201706/2019 Class 1 obesity due to exces s calories with serious comorbidity and body mass index (BMI) of 32.0 to 32.9 in adult 07/16/2014 08/14/2019 Uncontrolled type 2 diabetes mellitus without complication, with long-term current use of insulin 12/31/2013 10/07/2017 Overview: Hx Obesity, unspecified 12/31/2013 022 Overview: Hx BMI 30-39.9 Apnea 12/31/2013 08/11/2016 Overview: Hx Type II or unspecified type diabetes mellitus without mention of complication, uncontrolled 12/31/2013 04/05/2017 Overview: Hx Preoperative examination, unspecified 12/31/2013 03/08/2016 Overview: Hx Pressure ulcer, unspecified site(707.00) 12/31/2013 04/05/2017 Overview: Hx documented as of this encounter (statuses as of 09/15/2023) [facility]03-[facility]21 History of Past illness Narrative* Problem Noted Date Diagnosed Date Resolved Date 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 Continue present meds. Doing well with better diet and watching salt and taking diuretic as prescribed. Follow up with Dr. Gonzáles. Obesity (BMI 30.0-34.9) 02/24/201706/2019 Class 1 obesity due to exces s calories with serious comorbidity and body mass index (BMI) of 32.0 to 32.9 in adult 07/16/2014 08/14/2019 Uncontrolled type 2 diabetes mellitus without complication, with long-term current use of insulin 12/31/2013 10/07/2017 Overview: Hx Obesity, unspecified 12/31/2013 022 Overview: Hx BMI 30-39.9 Apnea 12/31/2013 08/11/2016 Overview: Hx Type II or unspecified type diabetes mellitus without mention of complication, uncontrolled 12/31/2013 04/05/2017 Overview: Hx Preoperative examination, unspecified 12/31/2013 03/08/2016 Overview: Hx Pressure ulcer, unspecified site(707.00) 12/31/2013 04/05/2017 Overview: Hx documented as of this encounter (statuses as of 09/21/2023) [facility]03-[facility]21 History of Past illness Narrative* Problem Noted Date Diagnosed Date Resolved Date 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 Continue present meds. Doing well with better diet and watching salt and taking diuretic as prescribed. Follow up with Dr. Gonzáles. Obesity (BMI 30.0-34.9) 02/24/201706/2019 Class 1 obesity due to exces s calories with serious comorbidity and body mass index (BMI) of 32.0 to 32.9 in adult 07/16/2014 08/14/2019 Uncontrolled type 2 diabetes mellitus without complication, with long-term current use of insulin 12/31/2013 10/07/2017 Overview: Hx Obesity, unspecified 12/31/2013 022 Overview: Hx BMI 30-39.9 Apnea 12/31/2013 08/11/2016 Overview: Hx Type II or unspecified type diabetes mellitus without mention of complication, uncontrolled 12/31/2013 04/05/2017 Overview: Hx Preoperative examination, unspecified 12/31/2013 03/08/2016 Overview: Hx Pressure ulcer, unspecified site(707.00) 12/31/2013 04/05/2017 Overview: Hx documented as of this encounter (statuses as of 09/23/2023) [facility]03-[facility]21 History of Past illness Narrative* Problem Noted Date Diagnosed Date Resolved Date 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 Continue present meds. Doing well with better diet and watching salt and taking diuretic as prescribed. Follow up with Dr. Gonzáles. Obesity (BMI 30.0-34.9) 02/24/201706/2019 Class 1 obesity due to exces s calories with serious comorbidity and body mass index (BMI) of 32.0 to 32.9 in adult 07/16/2014 08/14/2019 Uncontrolled type 2 diabetes mellitus without complication, with long-term current use of insulin 12/31/2013 10/07/2017 Overview: Hx Obesity, unspecified 12/31/2013 022 Overview: Hx BMI 30-39.9 Apnea 12/31/2013 08/11/2016 Overview: Hx Type II or unspecified type diabetes mellitus without mention of complication, uncontrolled 12/31/2013 04/05/2017 Overview: Hx Preoperative examination, unspecified 12/31/2013 03/08/2016 Overview: Hx Pressure ulcer, unspecified site(707.00) 12/31/2013 04/05/2017 Overview: Hx documented as of this encounter (statuses as of 09/30/2023) [facility]04[facility]2017 History of Past illness Narrative* Problem Noted Date Resolved Date Obesity (BMI 30.0-34.9) 02/24/2017 08/14/20 19 Class 1 obesity due to exces s calories with serious comorbidity and body mass index (BMI) of 32.0 to 32.9 in adult 07/16/2014 08/14/2019 Uncontrolled type 2 diabetes mellitus without complication, with long-term current use of insulin 12/31/2013 10/07/2017 Overview: Hx Apnea 12/31/2013 08/11/2016 Overview: Hx Type II or unspecified type diabetes mellitus without mention of complication, uncontrolled 12/31/2013 04/05/2017 Overview: Hx Preoperative examination, unspecified 12/31/2013 03/08/2016 Overview: Hx Pressure ulcer, unspecified site(707.00) 014 04/05/2017 Overview: Hx documented as of this encounter (statuses as of 02/02/2022) [facility]2017 History of Past illness Narrative* Problem Noted Date Resolved Date Obesity (BMI 30.0-34.9) 02/24/2017 08/14/20 19 Class 1 obesity due to exces s calories with serious comorbidity and body mass index (BMI) of 32.0 to 32.9 in adult 07/16/2014 08/14/2019 Uncontrolled type 2 diabetes mellitus without complication, with long-term current use of insulin 12/31/2013 10/07/2017 Overview: Hx Apnea 12/31/2013 08/11/2016 Overview: Hx Type II or unspecified type diabetes mellitus without mention of complication, uncontrolled 12/31/2013 04/05/2017 Overview: Hx Preoperative examination, unspecified 12/31/2013 03/08/2016 Overview: Hx Pressure ulcer, unspecified site(707.00) 014 04/05/2017 Overview: Hx documented as of this encounter (statuses as of 02/03/2022) [facility] History of Past illness Narrative* Problem Noted Date Resolved Date Obesity (BMI 30.0-34.9) 02/24/2017 08/14/20 19 Class 1 obesity due to exces s calories with serious comorbidity and body mass index (BMI) of 32.0 to 32.9 in adult 07/16/2014 08/14/2019 Uncontrolled type 2 diabetes mellitus without complication, with long-term current use of insulin 12/31/2013 10/07/2017 Overview: Hx Apnea 12/31/2013 08/11/2016 Overview: Hx Type II or unspecified type diabetes mellitus without mention of complication, uncontrolled 12/31/2013 04/05/2017 Overview: Hx Preoperative examination, unspecified 12/31/2013 03/08/2016 Overview: Hx Pressure ulcer, unspecified site(707.00) 014 04/05/2017 Overview: Hx documented as of this encounter (statuses as of 02/05/2022) [facility] History of Past illness Narrative* Problem Noted Date Resolved Date Obesity (BMI 30.0-34.9) 02/24/2017 08/14/20 19 Class 1 obesity due to exces s calories with serious comorbidity and body mass index (BMI) of 32.0 to 32.9 in adult 07/16/2014 08/14/2019 Uncontrolled type 2 diabetes mellitus without complication, with long-term current use of insulin 12/31/2013 10/07/2017 Overview: Hx Apnea 12/31/2013 08/11/2016 Overview: Hx Type II or unspecified type diabetes mellitus without mention of complication, uncontrolled 12/31/2013 04/05/2017 Overview: Hx Preoperative examination, unspecified 12/31/2013 03/08/2016 Overview: Hx Pressure ulcer, unspecified site(707.00) 014 04/05/2017 Overview: Hx documented as of this encounter (statuses as of 02/09/2022) [facility] History of Past illness Narrative* Problem Noted Date Resolved Date Obesity (BMI 30.0-34.9) 02/24/2017 08/14/20 19 Class 1 obesity due to exces s calories with serious comorbidity and body mass index (BMI) of 32.0 to 32.9 in adult 07/16/2014 08/14/2019 Uncontrolled type 2 diabetes mellitus without complication, with long-term current use of insulin 12/31/2013 10/07/2017 Overview: Hx Apnea 12/31/2013 08/11/2016 Overview: Hx Type II or unspecified type diabetes mellitus without mention of complication, uncontrolled 12/31/2013 04/05/2017 Overview: Hx Preoperative examination, unspecified 12/31/2013 03/08/2016 Overview: Hx Pressure ulcer, unspecified site(707.00) 014 04/05/2017 Overview: Hx documented as of this encounter (statuses as of 02/15/2022) [facility] History of Past illness Narrative* Problem Noted Date Resolved Date Obesity (BMI 30.0-34.9) 02/24/2017 08/14/20 19 Class 1 obesity due to exces s calories with serious comorbidity and body mass index (BMI) of 32.0 to 32.9 in adult 07/16/2014 08/14/2019 Uncontrolled type 2 diabetes mellitus without complication, with long-term current use of insulin 12/31/2013 10/07/2017 Overview: Hx Apnea 12/31/2013 08/11/2016 Overview: Hx Type II or unspecified type diabetes mellitus without mention of complication, uncontrolled 12/31/2013 04/05/2017 Overview: Hx Preoperative examination, unspecified 12/31/2013 03/08/2016 Overview: Hx Pressure ulcer, unspecified site(707.00) 014 04/05/2017 Overview: Hx documented as of this encounter (statuses as of 02/24/2022) [facility] History of Past illness Narrative* Problem Noted Date Resolved Date Obesity (BMI 30.0-34.9) 02/24/2017 08/14/20 19 Class 1 obesity due to exces s calories with serious comorbidity and body mass index (BMI) of 32.0 to 32.9 in adult 07/16/2014 08/14/2019 Uncontrolled type 2 diabetes mellitus without complication, with long-term current use of insulin 12/31/2013 10/07/2017 Overview: Hx Apnea 12/31/2013 08/11/2016 Overview: Hx Type II or unspecified type diabetes mellitus without mention of complication, uncontrolled 12/31/2013 04/05/2017 Overview: Hx Preoperative examination, unspecified 12/31/2013 03/08/2016 Overview: Hx Pressure ulcer, unspecified site(707.00) 014 04/05/2017 Overview: Hx documented as of this encounter (statuses as of 02/26/2022) [facility] History of Past illness Narrative* Problem Noted Date Resolved Date Obesity (BMI 30.0-34.9) 02/24/2017 08/14/20 19 Class 1 obesity due to exces s calories with serious comorbidity and body mass index (BMI) of 32.0 to 32.9 in adult 07/16/2014 08/14/2019 Uncontrolled type 2 diabetes mellitus without complication, with long-term current use of insulin 12/31/2013 10/07/2017 Overview: Hx Apnea 12/31/2013 08/11/2016 Overview: Hx Type II or unspecified type diabetes mellitus without mention of complication, uncontrolled 12/31/2013 04/05/2017 Overview: Hx Preoperative examination, unspecified 12/31/2013 03/08/2016 Overview: Hx Pressure ulcer, unspecified site(707.00) 014 04/05/2017 Overview: Hx documented as of this encounter (statuses as of 03/05/2022) [facility] History of Past illness Narrative* Problem Noted Date Resolved Date Obesity (BMI 30.0-34.9) 02/24/2017 08/14/20 19 Class 1 obesity due to exces s calories with serious comorbidity and body mass index (BMI) of 32.0 to 32.9 in adult 07/16/2014 08/14/2019 Uncontrolled type 2 diabetes mellitus without complication, with long-term current use of insulin 12/31/2013 10/07/2017 Overview: Hx Apnea 12/31/2013 08/11/2016 Overview: Hx Type II or unspecified type diabetes mellitus without mention of complication, uncontrolled 12/31/2013 04/05/2017 Overview: Hx Preoperative examination, unspecified 12/31/2013 03/08/2016 Overview: Hx Pressure ulcer, unspecified site(707.00) 014 04/05/2017 Overview: Hx documented as of this encounter (statuses as of 03/16/2022) [facility] History of Past illness Narrative* Problem Noted Date Resolved Date Obesity (BMI 30.0-34.9) 02/24/2017 08/14/20 19 Class 1 obesity due to exces s calories with serious comorbidity and body mass index (BMI) of 32.0 to 32.9 in adult 07/16/2014 08/14/2019 Uncontrolled type 2 diabetes mellitus without complication, with long-term current use of insulin 12/31/2013 10/07/2017 Overview: Hx Apnea 12/31/2013 08/11/2016 Overview: Hx Type II or unspecified type diabetes mellitus without mention of complication, uncontrolled 12/31/2013 04/05/2017 Overview: Hx Preoperative examination, unspecified 12/31/2013 03/08/2016 Overview: Hx Pressure ulcer, unspecified site(707.00) 014 04/05/2017 Overview: Hx documented as of this encounter (statuses as of 03/26/2022) [facility] History of Past illness Narrative* Problem Noted Date Resolved Date Obesity (BMI 30.0-34.9) 02/24/2017 08/14/20 19 Class 1 obesity due to exces s calories with serious comorbidity and body mass index (BMI) of 32.0 to 32.9 in adult 07/16/2014 08/14/2019 Uncontrolled type 2 diabetes mellitus without complication, with long-term current use of insulin 12/31/2013 10/07/2017 Overview: Hx Apnea 12/31/2013 08/11/2016 Overview: Hx Type II or unspecified type diabetes mellitus without mention of complication, uncontrolled 12/31/2013 04/05/2017 Overview: Hx Preoperative examination, unspecified 12/31/2013 03/08/2016 Overview: Hx Pressure ulcer, unspecified site(707.00) 014 04/05/2017 Overview: Hx documented as of this encounter (statuses as of 04/01/2022) [facility] History of Past illness Narrative* Problem Noted Date Resolved Date Obesity (BMI 30.0-34.9) 02/24/2017 08/14/20 19 Class 1 obesity due to exces s calories with serious comorbidity and body mass index (BMI) of 32.0 to 32.9 in adult 07/16/2014 08/14/2019 Uncontrolled type 2 diabetes mellitus without complication, with long-term current use of insulin 12/31/2013 10/07/2017 Overview: Hx Apnea 12/31/2013 08/11/2016 Overview: Hx Type II or unspecified type diabetes mellitus without mention of complication, uncontrolled 12/31/2013 04/05/2017 Overview: Hx Preoperative examination, unspecified 12/31/2013 03/08/2016 Overview: Hx Pressure ulcer, unspecified site(707.00) 014 04/05/2017 Overview: Hx documented as of this encounter (statuses as of 04/06/2022) [facility] History of Past illness Narrative* Problem Noted Date Resolved Date Obesity (BMI 30.0-34.9) 02/24/2017 08/14/20 19 Class 1 obesity due to exces s calories with serious comorbidity and body mass index (BMI) of 32.0 to 32.9 in adult 07/16/2014 08/14/2019 Uncontrolled type 2 diabetes mellitus without complication, with long-term current use of insulin 12/31/2013 10/07/2017 Overview: Hx Apnea 12/31/2013 08/11/2016 Overview: Hx Type II or unspecified type diabetes mellitus without mention of complication, uncontrolled 12/31/2013 04/05/2017 Overview: Hx Preoperative examination, unspecified 12/31/2013 03/08/2016 Overview: Hx Pressure ulcer, unspecified site(707.00) 014 04/05/2017 Overview: Hx documented as of this encounter (statuses as of 04/08/2022) [facility] History of Past illness Narrative* Problem Noted Date Resolved Date Obesity (BMI 30.0-34.9) 02/24/2017 08/14/20 19 Class 1 obesity due to exces s calories with serious comorbidity and body mass index (BMI) of 32.0 to 32.9 in adult 07/16/2014 08/14/2019 Uncontrolled type 2 diabetes mellitus without complication, with long-term current use of insulin 12/31/2013 10/07/2017 Overview: Hx Apnea 12/31/2013 08/11/2016 Overview: Hx Type II or unspecified type diabetes mellitus without mention of complication, uncontrolled 12/31/2013 04/05/2017 Overview: Hx Preoperative examination, unspecified 12/31/2013 03/08/2016 Overview: Hx Pressure ulcer, unspecified site(707.00) 014 04/05/2017 Overview: Hx documented as of this encounter (statuses as of 04/16/2022) [facility]04-20[facility]2017 History of Past illness Narrative* Problem Noted Date Resolved Date Obesity (BMI 30.0-34.9) 02/24/2017 08/14/20 19 Class 1 obesity due to exces s calories with serious comorbidity and body mass index (BMI) of 32.0 to 32.9 in adult 07/16/2014 08/14/2019 Uncontrolled type 2 diabetes mellitus without complication, with long-term current use of insulin 12/31/2013 10/07/2017 Overview: Hx Apnea 12/31/2013 08/11/2016 Overview: Hx Type II or unspecified type diabetes mellitus without mention of complication, uncontrolled 12/31/2013 04/05/2017 Overview: Hx Preoperative examination, unspecified 12/31/2013 03/08/2016 Overview: Hx Pressure ulcer, unspecified site(707.00) 014 04/05/2017 Overview: Hx documented as of this encounter (statuses as of 04/23/2022) [facility] History of Past illness Narrative* Problem Noted Date Resolved Date Obesity (BMI 30.0-34.9) 02/24/2017 08/14/20 19 Class 1 obesity due to exces s calories with serious comorbidity and body mass index (BMI) of 32.0 to 32.9 in adult 07/16/2014 08/14/2019 Uncontrolled type 2 diabetes mellitus without complication, with long-term current use of insulin 12/31/2013 10/07/2017 Overview: Hx Apnea 12/31/2013 08/11/2016 Overview: Hx Type II or unspecified type diabetes mellitus without mention of complication, uncontrolled 12/31/2013 04/05/2017 Overview: Hx Preoperative examination, unspecified 12/31/2013 03/08/2016 Overview: Hx Pressure ulcer, unspecified site(707.00) 014 04/05/2017 Overview: Hx documented as of this encounter (statuses as of 05/04/2022) [facility] History of Past illness Narrative* Problem Noted Date Resolved Date Obesity (BMI 30.0-34.9) 02/24/2017 08/14/20 19 Class 1 obesity due to exces s calories with serious comorbidity and body mass index (BMI) of 32.0 to 32.9 in adult 07/16/2014 08/14/2019 Uncontrolled type 2 diabetes mellitus without complication, with long-term current use of insulin 12/31/2013 10/07/2017 Overview: Hx Apnea 12/31/2013 08/11/2016 Overview: Hx Type II or unspecified type diabetes mellitus without mention of complication, uncontrolled 12/31/2013 04/05/2017 Overview: Hx Preoperative examination, unspecified 12/31/2013 03/08/2016 Overview: Hx Pressure ulcer, unspecified site(707.00) 014 04/05/2017 Overview: Hx documented as of this encounter (statuses as of 05/13/2022) [facility] History of Past illness Narrative* Problem Noted Date Resolved Date Obesity (BMI 30.0-34.9) 02/24/2017 08/14/20 19 Class 1 obesity due to exces s calories with serious comorbidity and body mass index (BMI) of 32.0 to 32.9 in adult 07/16/2014 08/14/2019 Uncontrolled type 2 diabetes mellitus without complication, with long-term current use of insulin 12/31/2013 10/07/2017 Overview: Hx Apnea 12/31/2013 08/11/2016 Overview: Hx Type II or unspecified type diabetes mellitus without mention of complication, uncontrolled 12/31/2013 04/05/2017 Overview: Hx Preoperative examination, unspecified 12/31/2013 03/08/2016 Overview: Hx Pressure ulcer, unspecified site(707.00) 014 04/05/2017 Overview: Hx documented as of this encounter (statuses as of 05/19/2022) [facility] History of Past illness Narrative* Problem Noted Date Resolved Date Obesity (BMI 30.0-34.9) 02/24/2017 08/14/20 19 Class 1 obesity due to exces s calories with serious comorbidity and body mass index (BMI) of 32.0 to 32.9 in adult 07/16/2014 08/14/2019 Uncontrolled type 2 diabetes mellitus without complication, with long-term current use of insulin 12/31/2013 10/07/2017 Overview: Hx Apnea 12/31/2013 08/11/2016 Overview: Hx Type II or unspecified type diabetes mellitus without mention of complication, uncontrolled 12/31/2013 04/05/2017 Overview: Hx Preoperative examination, unspecified 12/31/2013 03/08/2016 Overview: Hx Pressure ulcer, unspecified site(707.00) 014 04/05/2017 Overview: Hx documented as of this encounter (statuses as of 05/20/2022) [facility] History of Past illness Narrative* Problem Noted Date Resolved Date Obesity (BMI 30.0-34.9) 02/24/2017 08/14/20 19 Class 1 obesity due to exces s calories with serious comorbidity and body mass index (BMI) of 32.0 to 32.9 in adult 07/16/2014 08/14/2019 Uncontrolled type 2 diabetes mellitus without complication, with long-term current use of insulin 12/31/2013 10/07/2017 Overview: Hx Apnea 12/31/2013 08/11/2016 Overview: Hx Type II or unspecified type diabetes mellitus without mention of complication, uncontrolled 12/31/2013 04/05/2017 Overview: Hx Preoperative examination, unspecified 12/31/2013 03/08/2016 Overview: Hx Pressure ulcer, unspecified site(707.00) 014 04/05/2017 Overview: Hx documented as of this encounter (statuses as of 2022) [facility]2017 History of Past illness Narrative* Problem Noted Date Resolved Date Obesity (BMI 30.0-34.9) 02/24/2017 08/14/20 19 Class 1 obesity due to exces s calories with serious comorbidity and body mass index (BMI) of 32.0 to 32.9 in adult 07/16/2014 08/14/2019 Uncontrolled type 2 diabetes mellitus without complication, with long-term current use of insulin 12/31/2013 10/07/2017 Overview: Hx Apnea 12/31/2013 08/11/2016 Overview: Hx Type II or unspecified type diabetes mellitus without mention of complication, uncontrolled 12/31/2013 04/05/2017 Overview: Hx Preoperative examination, unspecified 12/31/2013 03/08/2016 Overview: Hx Pressure ulcer, unspecified site(707.00) 014 04/05/2017 Overview: Hx documented as of this encounter (statuses as of 06/15/2022) [facility] History of Past illness Narrative* Problem Noted Date Resolved Date Obesity (BMI 30.0-34.9) 02/24/2017 08/14/20 19 Class 1 obesity due to exces s calories with serious comorbidity and body mass index (BMI) of 32.0 to 32.9 in adult 07/16/2014 08/14/2019 Uncontrolled type 2 diabetes mellitus without complication, with long-term current use of insulin 12/31/2013 10/07/2017 Overview: Hx Apnea 12/31/2013 08/11/2016 Overview: Hx Type II or unspecified type diabetes mellitus without mention of complication, uncontrolled 12/31/2013 04/05/2017 Overview: Hx Preoperative examination, unspecified 12/31/2013 03/08/2016 Overview: Hx Pressure ulcer, unspecified site(707.00) 014 04/05/2017 Overview: Hx documented as of this encounter (statuses as of 06/24/2022) [facility] History of Past illness Narrative* Problem Noted Date Resolved Date Obesity (BMI 30.0-34.9) 02/24/2017 08/14/20 19 Class 1 obesity due to exces s calories with serious comorbidity and body mass index (BMI) of 32.0 to 32.9 in adult 07/16/2014 08/14/2019 Uncontrolled type 2 diabetes mellitus without complication, with long-term current use of insulin 12/31/2013 10/07/2017 Overview: Hx Apnea 12/31/2013 08/11/2016 Overview: Hx Type II or unspecified type diabetes mellitus without mention of complication, uncontrolled 12/31/2013 04/05/2017 Overview: Hx Preoperative examination, unspecified 12/31/2013 03/08/2016 Overview: Hx Pressure ulcer, unspecified site(707.00) 014 04/05/2017 Overview: Hx documented as of this encounter (statuses as of 07/22/2022) [facility] History of Past illness Narrative* Problem Noted Date Resolved Date Obesity (BMI 30.0-34.9) 02/24/2017 08/14/20 19 Class 1 obesity due to exces s calories with serious comorbidity and body mass index (BMI) of 32.0 to 32.9 in adult 07/16/2014 08/14/2019 Uncontrolled type 2 diabetes mellitus without complication, with long-term current use of insulin 12/31/2013 10/07/2017 Overview: Hx Obesity, unspecified 12/31/2013 07/29/2022 Overview: Hx BMI 30-39.9 Apnea 12/31/2013 08/11/2016 Overview: Hx Type II or unspecified type diabetes mellitus without mention of complication, uncontrolled 12/31/2013 04/05/2017 Overview: Hx Preoperative examination, unspecified 12/31/2013 03/08/2016 Overview: Hx Pressure ulcer, unspecified site(707.00) 014 04/05/2017 Overview: Hx documented as of this encounter (statuses as of 07/29/2022) [facility] History of Past illness Narrative* Problem Noted Date Resolved Date Obesity (BMI 30.0-34.9) 02/24/2017 08/14/20 19 Class 1 obesity due to exces s calories with serious comorbidity and body mass index (BMI) of 32.0 to 32.9 in adult 07/16/2014 08/14/2019 Uncontrolled type 2 diabetes mellitus without complication, with long-term current use of insulin 12/31/2013 10/07/2017 Overview: Hx Obesity, unspecified 12/31/2013 07/29/2022 Overview: Hx BMI 30-39.9 Apnea 12/31/2013 08/11/2016 Overview: Hx Type II or unspecified type diabetes mellitus without mention of complication, uncontrolled 12/31/2013 04/05/2017 Overview: Hx Preoperative examination, unspecified 12/31/2013 03/08/2016 Overview: Hx Pressure ulcer, unspecified site(707.00) 014 04/05/2017 Overview: Hx documented as of this encounter (statuses as of 08/13/2022) [facility] History of Past illness Narrative* Problem Noted Date Resolved Date Obesity (BMI 30.0-34.9) 02/24/2017 08/14/20 19 Class 1 obesity due to exces s calories with serious comorbidity and body mass index (BMI) of 32.0 to 32.9 in adult 07/16/2014 08/14/2019 Uncontrolled type 2 diabetes mellitus without complication, with long-term current use of insulin 12/31/2013 10/07/2017 Overview: Hx Obesity, unspecified 12/31/2013 07/29/2022 Overview: Hx BMI 30-39.9 Apnea 12/31/2013 08/11/2016 Overview: Hx Type II or unspecified type diabetes mellitus without mention of complication, uncontrolled 12/31/2013 04/05/2017 Overview: Hx Preoperative examination, unspecified 12/31/2013 03/08/2016 Overview: Hx Pressure ulcer, unspecified site(707.00) 014 04/05/2017 Overview: Hx documented as of this encounter (statuses as of 09/02/2022) [facility] History of Past illness Narrative* Problem Noted Date Resolved Date Obesity (BMI 30.0-34.9) 02/24/2017 08/14/20 19 Class 1 obesity due to exces s calories with serious comorbidity and body mass index (BMI) of 32.0 to 32.9 in adult 07/16/2014 08/14/2019 Uncontrolled type 2 diabetes mellitus without complication, with long-term current use of insulin 12/31/2013 10/07/2017 Overview: Hx Obesity, unspecified 12/31/2013 07/29/2022 Overview: Hx BMI 30-39.9 Apnea 12/31/2013 08/11/2016 Overview: Hx Type II or unspecified type diabetes mellitus without mention of complication, uncontrolled 12/31/2013 04/05/2017 Overview: Hx Preoperative examination, unspecified 12/31/2013 03/08/2016 Overview: Hx Pressure ulcer, unspecified site(707.00) 014 04/05/2017 Overview: Hx documented as of this encounter (statuses as of 09/03/2022) [facility] History of Past illness Narrative* Problem Noted Date Resolved Date Obesity (BMI 30.0-34.9) 02/24/2017 08/14/20 19 Class 1 obesity due to exces s calories with serious comorbidity and body mass index (BMI) of 32.0 to 32.9 in adult 07/16/2014 08/14/2019 Uncontrolled type 2 diabetes mellitus without complication, with long-term current use of insulin 12/31/2013 10/07/2017 Overview: Hx Obesity, unspecified 12/31/2013 07/29/2022 Overview: Hx BMI 30-39.9 Apnea 12/31/2013 08/11/2016 Overview: Hx Type II or unspecified type diabetes mellitus without mention of complication, uncontrolled 12/31/2013 04/05/2017 Overview: Hx Preoperative examination, unspecified 12/31/2013 03/08/2016 Overview: Hx Pressure ulcer, unspecified site(707.00) 014 04/05/2017 Overview: Hx documented as of this encounter (statuses as of 09/06/2022) [facility] History of Past illness Narrative* Problem Noted Date Resolved Date Obesity (BMI 30.0-34.9) 02/24/2017 08/14/20 19 Class 1 obesity due to exces s calories with serious comorbidity and body mass index (BMI) of 32.0 to 32.9 in adult 07/16/2014 08/14/2019 Uncontrolled type 2 diabetes mellitus without complication, with long-term current use of insulin 12/31/2013 10/07/2017 Overview: Hx Obesity, unspecified 12/31/2013 07/29/2022 Overview: Hx BMI 30-39.9 Apnea 12/31/2013 08/11/2016 Overview: Hx Type II or unspecified type diabetes mellitus without mention of complication, uncontrolled 12/31/2013 04/05/2017 Overview: Hx Preoperative examination, unspecified 12/31/2013 03/08/2016 Overview: Hx Pressure ulcer, unspecified site(707.00) 014 04/05/2017 Overview: Hx documented as of this encounter (statuses as of 09/15/2022) [facility] History of Past illness Narrative* Problem Noted Date Resolved Date Obesity (BMI 30.0-34.9) 02/24/2017 08/14/20 19 Class 1 obesity due to exces s calories with serious comorbidity and body mass index (BMI) of 32.0 to 32.9 in adult 07/16/2014 08/14/2019 Uncontrolled type 2 diabetes mellitus without complication, with long-term current use of insulin 12/31/2013 10/07/2017 Overview: Hx Obesity, unspecified 12/31/2013 07/29/2022 Overview: Hx BMI 30-39.9 Apnea 12/31/2013 08/11/2016 Overview: Hx Type II or unspecified type diabetes mellitus without mention of complication, uncontrolled 12/31/2013 04/05/2017 Overview: Hx Preoperative examination, unspecified 12/31/2013 03/08/2016 Overview: Hx Pressure ulcer, unspecified site(707.00) 014 04/05/2017 Overview: Hx documented as of this encounter (statuses as of 09/17/2022) [facility] History of Past illness Narrative* Problem Noted Date Resolved Date Obesity (BMI 30.0-34.9) 02/24/2017 08/14/20 19 Class 1 obesity due to exces s calories with serious comorbidity and body mass index (BMI) of 32.0 to 32.9 in adult 07/16/2014 08/14/2019 Uncontrolled type 2 diabetes mellitus without complication, with long-term current use of insulin 12/31/2013 10/07/2017 Overview: Hx Obesity, unspecified 12/31/2013 07/29/2022 Overview: Hx BMI 30-39.9 Apnea 12/31/2013 08/11/2016 Overview: Hx Type II or unspecified type diabetes mellitus without mention of complication, uncontrolled 12/31/2013 04/05/2017 Overview: Hx Preoperative examination, unspecified 12/31/2013 03/08/2016 Overview: Hx Pressure ulcer, unspecified site(707.00) 014 04/05/2017 Overview: Hx documented as of this encounter (statuses as of 09/17/2022) [facility] Diagnosis Controlled type 2 diabetes mellitus without complication, with long-term current use of insulin (HCC) documented in this encounter [facility] note* Diagnosis Controlled type 2 diabetes mellitus without complication, with long-term current use of insulin (HCC)- Primary documented in this encounter [facility] note* Diagnosis Controlled type 2 diabetes mellitus without complication, with long-term current use of insulin (HCC)- Primary Medication management Encounter for long-term (current) use of other medications documented in this encounter [facility] note* Diagnosis Hip fracture requiring operative repair, right, closed, initial encounter ([facility])- Primary Status post hip hemiarthroplasty documented in this encounter [facility] note* Diagnosis Pain- Primary Generalized pain documented in this encounter [facility] note* Diagnosis Pain- Primary Generalized pain documented in this encounter [facility] note* Diagnosis Hip fracture requiring operative repair, right, closed, initial encounter ([facility])- Primary Low back pain without sciatica, unspecified back pain laterality, unspecified chronicity documented in this encounter [facility] note* Diagnosis Low back pain without sciatica, unspecified back pain laterality, unspecified chronicity- Primary documented in this encounter [facility] note* Diagnosis Controlled type 2 diabetes mellitus without complication, with long-term current use of insulin (HCC)- Primary documented in this encounter [facility] note* Diagnosis Brain tumor (HCC)- Primary Neoplasm of unspecified nature of brain Moderate persistent asthma without complication Unspecified asthma Chronic diastolic CHF (congestive heart failure) (HCC) Chronic diastolic heart failure documented in this encounter [facility] note* Diagnosis Hip fracture requiring operative repair, right, closed, initial encounter ([facility])- Primary Low back pain without sciatica, unspecified back pain laterality, unspecified chronicity documented in this encounter [facility] note* Diagnosis Controlled type 2 diabetes mellitus without complication, with long-term current use of insulin (HCC) Essential hypertension, benign documented in this encounter [facility] note* Diagnosis Hip fracture requiring operative repair, right, closed, initial encounter ([facility])- Primary Status post hip hemiarthroplasty documented in this encounter [facility] note* Diagnosis Status post hip hemiarthroplasty- Primary documented in this encounter [facility] note* Diagnosis Status post hip hemiarthroplasty- [facility] Diagnosis Liver disease- Primary Unspecified disorder of liver [facility] Diagnosis Liver disease Unspecified disorder of liver [facility] Diagnosis Tobacco abuse Tobacco use disorder documented in this encounter [facility] note* Diagnosis Rash Rash and other nonspecific skin eruption [facility] Diagnosis Liver disease- Primary Unspecified disorder of liver Other cirrhosis of liver (HCC) [facility]* Diagnosis Liver disease Unspecified disorder of liver [facility] Diagnosis Hypotension due to drugs- Primary Other iatrogenic hypotension Nausea Nausea alone Adult failure to thrive Type 2 diabetes mellitus with other specified complication, with long-term current use of insulin (HCC) Paroxysmal atrial fibrillation (HCC) Atrial fibrillation Chronic diastolic CHF (congestive heart failure) (HCC) Chronic diastolic heart failure Parkinson's disease (HCC) Paralysis agitans [facility] Diagnosis Controlled type 2 diabetes mellitus without complication, with long-term current use of insulin (HCC)- Primary Essential hypertension, benign 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 Moderate persistent asthma without complication Unspecified asthma Cirrhosis of liver with ascites, unspecified hepatic cirrhosis type (HCC) [facility]* Diagnosis Chronic diastolic CHF (congestive heart failure) (HCC)- Primary Chronic diastolic heart failure documented in this encounter [facility] for referral (narrative)* Diagnostic Procedure Only (Routine) - Authorized Specialty Diagnoses / Procedures Referred By Contac t Referred To Contact US IMAGING Diagnoses Liver disease Procedures US ABD RT UPPER QUADRANT US ABDOMINAL REAL TIME W/IMAGE LIMITED Deborah Main [address] [place] [address] Us Imaging Referral ID Status Reason Start Date Expiration Date Visits Requested Visits Authorized [id number] Authorized Auto-Generat ed Referral 2 10/02/2023 4 4 [facility] for referral (narrative)* Diagnostic Procedure Only (Routine) - Authorized Specialty Diagnoses / Procedures Referred By Contac t Referred To Contact US IMAGING Diagnoses Liver disease Procedures US ABD RT UPPER QUADRANT US ABDOMINAL REAL TIME W/IMAGE LIMITED Deborah Main [address] [place] [address] Us Imaging Referral ID Status Reason Start Date Expiration Date Visits Requested Visits Authorized [id number] Authorized Auto-Generat ed Referral 2 10/02/2023 4 4 [facility] for referral (narrative)* Diagnostic Procedure Only (Routine) - Authorized Specialty Diagnoses / Procedures Referred By Contac t Referred To Contact US IMAGING Diagnoses Liver disease Procedures US ABD RIGHT UPPER QUADRANT US ABDOMINAL REAL TIME W/IMAGE LIMITED Home Loredo MD [address] [place] [address] Us Imaging Referral ID Status Reason Start Date Expiration Date Visits Requested Visits Authorized [id number] Authorized Auto-Generat ed Referral 09/12/2023 04/07/2024 1 1 [facility] for referral (narrative)* Diagnostic Procedure Only (Routine) - Authorized Specialty Diagnoses / Procedures Referred By Contac t Referred To Contact US IMAGING Diagnoses Liver disease Procedures US ABD RT UPPER QUADRANT US ABDOMINAL REAL TIME W/IMAGE LIMITED Deborah Main [address] [place] [address] Us Imaging Referral ID Status Reason Start Date Expiration Date Visits Requested Visits Authorized [id number] Authorized Auto-Generat ed Referral 2 10/02/2023 4 4 [facility] for visit Narrative* Diagnostic Procedure Only (Routine) - Authorized Specialty Diagnoses / Procedures Referred By Contac t Referred To Contact US IMAGING Diagnoses Liver disease Procedures US ABD RT UPPER QUADRANT US ABDOMINAL REAL TIME W/IMAGE LIMITED Deborah Main [address] [place] [address] Us Imaging Referral ID Status Reason Start Date Expiration Date Visits Requested Visits Authorized [id number] Authorized Auto-Generat ed Referral 10/02/2023 4 4 [facility] Advance Directives No Advanced Directives Records FoundDocuments on File Type Date Recorded 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 Advance Directives and Martain g Will 02/11/2022 2:47 PM Advance Directives and Livin g Will 02/11/2022 3:13 PM Power of Director Of Software Engineering 02/11/2022 3:13 PM Latest Code Status on File Code Status Date Activated Date Inactivated Comments Full Code 02/10/2022 3:42 PM 02/19/2022 12:43 PM Documents on File Type Date Recorded 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 Advance Directives and Livin g Will 02/19/2022 7:10 PM Advance Directives and Livin g Will 02/19/2022 7:11 PM Power of Director Of Software Engineering 02/19/2022 7:10 PM Advance Directives and Livin g Will 02/11/2022 2:47 PM Advance Directives and Livin g Will 02/11/2022 3:13 PM Power of Director Of Software Engineering 02/11/2022 3:13 PM Documents on File Type Date Recorded 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 Advance Directives and Livin g Will 02/19/2022 7:10 PM Advance Directives and Livin g Will 02/19/2022 7:11 PM Power of Director Of Software Engineering 02/19/2022 7:10 PM Advance Directives and Livin g Will 02/11/2022 3:13 PM Power of Director Of Software Engineering 02/11/2022 3:13 PM Documents on File Type Date Recorded 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 Advance Directives and Livin g Will 02/19/2022 7:10 PM Advance Directives and Livin g Will 02/19/2022 7:11 PM Power of Director Of Software Engineering 02/19/2022 7:10 PM Advance Directives and Livin g Will 02/11/2022 3:13 PM Power of Director Of Software Engineering 02/11/2022 3:13 PM Latest Code Status on File Code Status Date Activated Date Inactivated Comments Full Code 02/10/2022 3:42 PM 02/19/2022 12:43 PM Reason for Referral Specialty Diagnoses / Procedures Referred By Contac t Referred To Contact Radiology Diagnoses Low back pain without sciatica, unspecified back pain laterality, unspecified chronicity Procedures MR Lumbar Spine Without Contrast Viau, Munira Romero MD [address] [place] [id number] Referral ID Status Reason Start Date Expiration Date V isits Requested Visits Authorized [id number] Authorized 03/30/2022 03/30/2023 1 1 Summary Purpose Family History No Family History Records FoundNo Family History Records FoundNo Family History Records Found Additional Source Comments Source Comments (unrecognize d section and content) In the event this informatio n is protected by the Federal Confidentiality of Alcohol and Drug Abuse Patient Records regulations: The Federal rules restrict any use of the information to criminally investigate or prosecute any alcohol or drug abuse patient.[facility] HospitalIn the event this information is protected by the Federal Confidentiality of Alcohol and Drug Abuse Patient Records regulations: The Federal rules restrict any use of the information to criminally investigate or prosecute any alcohol or drug abuse patient.[facility] HospitalIn the event this information is protected by the Federal Confidentiality of Alcohol and Drug Abuse Patient Records regulations: The Federal rules restrict any use of the information to criminally investigate or prosecute any alcohol or drug abuse patient.[facility] HospitalIn the event this information is protected by the Federal Confidentiality of Alcohol and Drug Abuse Patient Records regulations: The Federal rules restrict any use of the information to criminally investigate or prosecute any alcohol or drug abuse patient.[facility] HospitalIn the event this information is protected by the Federal Confidentiality of Alcohol and Drug Abuse Patient Records regulations: The Federal rules restrict any use of the information to criminally investigate or prosecute any alcohol or drug abuse patient.[facility] HospitalIn the event this information is protected by the Federal Confidentiality of Alcohol and Drug Abuse Patient Records regulations: The Federal rules restrict any use of the information to criminally investigate or prosecute any alcohol or drug abuse patient.[facility] HospitalIn the event this information is protected by the Federal Confidentiality of Alcohol and Drug Abuse Patient Records regulations: The Federal rules restrict any use of the information to criminally investigate or prosecute any alcohol or drug abuse patient.[facility] HospitalIn the event this information is protected by the Federal Confidentiality of Alcohol and Drug Abuse Patient Records regulations: The Federal rules restrict any use of the information to criminally investigate or prosecute any alcohol or drug abuse patient.[facility] HospitalIn the event this information is protected by the Federal Confidentiality of Alcohol and Drug Abuse Patient Records regulations: The Federal rules restrict any use of the information to criminally investigate or prosecute any alcohol or drug abuse patient.[facility] HospitalIn the event this information is protected by the Federal Confidentiality of Alcohol and Drug Abuse Patient Records regulations: The Federal rules restrict any use of the information to criminally investigate or prosecute any alcohol or drug abuse patient.[facility] HospitalIn the event this information is protected by the Federal Confidentiality of Alcohol and Drug Abuse Patient Records regulations: The Federal rules restrict any use of the information to criminally investigate or prosecute any alcohol or drug abuse patient.[facility] HospitalIn the event this information is protected by the Federal Confidentiality of Alcohol and Drug Abuse Patient Records regulations: The Federal rules restrict any use of the information to criminally investigate or prosecute any alcohol or drug abuse patient.[facility] HospitalIn the event this information is protected by the Federal Confidentiality of Alcohol and Drug Abuse Patient Records regulations: The Federal rules restrict any use of the information to criminally investigate or prosecute any alcohol or drug abuse patient.[facility] HospitalIn the event this information is protected by the Federal Confidentiality of Alcohol and Drug Abuse Patient Records regulations: The Federal rules restrict any use of the information to criminally investigate or prosecute any alcohol or drug abuse patient.[facility] HospitalIn the event this information is protected by the Federal Confidentiality of Alcohol and Drug Abuse Patient Records regulations: The Federal rules restrict any use of the information to criminally investigate or prosecute any alcohol or drug abuse patient.[facility] HospitalIn the event this information is protected by the Federal Confidentiality of Alcohol and Drug Abuse Patient Records regulations: The Federal rules restrict any use of the information to criminally investigate or prosecute any alcohol or drug abuse patient.[facility] HospitalIn the event this information is protected by the Federal Confidentiality of Alcohol and Drug Abuse Patient Records regulations: The Federal rules restrict any use of the information to criminally investigate or prosecute any alcohol or drug abuse patient.[facility] HospitalIn the event this information is protected by the Federal Confidentiality of Alcohol and Drug Abuse Patient Records regulations: The Federal rules restrict any use of the information to criminally investigate or prosecute any alcohol or drug abuse patient.[facility] HospitalIn the event this information is protected by the Federal Confidentiality of Alcohol and Drug Abuse Patient Records regulations: The Federal rules restrict any use of the information to criminally investigate or prosecute any alcohol or drug abuse patient.[facility] HospitalIn the event this information is protected by the Federal Confidentiality of Alcohol and Drug Abuse Patient Records regulations: The Federal rules restrict any use of the information to criminally investigate or prosecute any alcohol or drug abuse patient.[facility] HospitalIn the event this information is protected by the Federal Confidentiality of Alcohol and Drug Abuse Patient Records regulations: The Federal rules restrict any use of the information to criminally investigate or prosecute any alcohol or drug abuse patient.[facility] HospitalIn the event this information is protected by the Federal Confidentiality of Alcohol and Drug Abuse Patient Records regulations: The Federal rules restrict any use of the information to criminally investigate or prosecute any alcohol or drug abuse patient.[facility] HospitalIn the event this information is protected by the Federal Confidentiality of Alcohol and Drug Abuse Patient Records regulations: The Federal rules restrict any use of the information to criminally investigate or prosecute any alcohol or drug abuse patient.[facility] HospitalIn the event this information is protected by the Federal Confidentiality of Alcohol and Drug Abuse Patient Records regulations: The Federal rules restrict any use of the information to criminally investigate or prosecute any alcohol or drug abuse patient.[facility] HospitalIn the event this information is protected by the Federal Confidentiality of Alcohol and Drug Abuse Patient Records regulations: The Federal rules restrict any use of the information to criminally investigate or prosecute any alcohol or drug abuse patient.[facility] HospitalIn the event this information is protected by the Federal Confidentiality of Alcohol and Drug Abuse Patient Records regulations: The Federal rules restrict any use of the information to criminally investigate or prosecute any alcohol or drug abuse patient.[facility] HospitalIn the event this information is protected by the Federal Confidentiality of Alcohol and Drug Abuse Patient Records regulations: The Federal rules restrict any use of the information to criminally investigate or prosecute any alcohol or drug abuse patient.[facility] HospitalIn the event this information is protected by the Federal Confidentiality of Alcohol and Drug Abuse Patient Records regulations: The Federal rules restrict any use of the information to criminally investigate or prosecute any alcohol or drug abuse patient.[facility] HospitalIn the event this information is protected by the Federal Confidentiality of Alcohol and Drug Abuse Patient Records regulations: The Federal rules restrict any use of the information to criminally investigate or prosecute any alcohol or drug abuse patient.[facility] HospitalIn the event this information is protected by the Federal Confidentiality of Alcohol and Drug Abuse Patient Records regulations: The Federal rules restrict any use of the information to criminally investigate or prosecute any alcohol or drug abuse patient.[facility] HospitalIn the event this information is protected by the Federal Confidentiality of Alcohol and Drug Abuse Patient Records regulations: The Federal rules restrict any use of the information to criminally investigate or prosecute any alcohol or drug abuse patient.[facility] HospitalIn the event this information is protected by the Federal Confidentiality of Alcohol and Drug Abuse Patient Records regulations: The Federal rules restrict any use of the information to criminally investigate or prosecute any alcohol or drug abuse patient.[facility] HospitalIn the event this information is protected by the Federal Confidentiality of Alcohol and Drug Abuse Patient Records regulations: The Federal rules restrict any use of the information to criminally investigate or prosecute any alcohol or drug abuse patient.[facility] HospitalIn the event this information is protected by the Federal Confidentiality of Alcohol and Drug Abuse Patient Records regulations: The Federal rules restrict any use of the information to criminally investigate or prosecute any alcohol or drug abuse patient.[facility] HospitalIn the event this information is protected by the Federal Confidentiality of Alcohol and Drug Abuse Patient Records regulations: The Federal rules restrict any use of the information to criminally investigate or prosecute any alcohol or drug abuse patient.[facility] HospitalIn the event this information is protected by the Federal Confidentiality of Alcohol and Drug Abuse Patient Records regulations: The Federal rules restrict any use of the information to criminally investigate or prosecute any alcohol or drug abuse patient.[facility] HospitalIn the event this information is protected by the Federal Confidentiality of Alcohol and Drug Abuse Patient Records regulations: The Federal rules restrict any use of the information to criminally investigate or prosecute any alcohol or drug abuse patient.[facility] HospitalIn the event this information is protected by the Federal Confidentiality of Alcohol and Drug Abuse Patient Records regulations: The Federal rules restrict any use of the information to criminally investigate or prosecute any alcohol or drug abuse patient.[facility] HospitalIn the event this information is protected by the Federal Confidentiality of Alcohol and Drug Abuse Patient Records regulations: The Federal rules restrict any use of the information to criminally investigate or prosecute any alcohol or drug abuse patient.[facility] HospitalIn the event this information is protected by the Federal Confidentiality of Alcohol and Drug Abuse Patient Records regulations: The Federal rules restrict any use of the information to criminally investigate or prosecute any alcohol or drug abuse patient.[facility] HospitalIn the event this information is protected by the Federal Confidentiality of Alcohol and Drug Abuse Patient Records regulations: The Federal rules restrict any use of the information to criminally investigate or prosecute any alcohol or drug abuse patient.[facility] HospitalIn the event this information is protected by the Federal Confidentiality of Alcohol and Drug Abuse Patient Records regulations: The Federal rules restrict any use of the information to criminally investigate or prosecute any alcohol or drug abuse patient.[facility] HospitalIn the event this information is protected by the Federal Confidentiality of Alcohol and Drug Abuse Patient Records regulations: The Federal rules restrict any use of the information to criminally investigate or prosecute any alcohol or drug abuse patient.[facility] HospitalIn the event this information is protected by the Federal Confidentiality of Alcohol and Drug Abuse Patient Records regulations: The Federal rules restrict any use of the information to criminally investigate or prosecute any alcohol or drug abuse patient.[facility] HospitalIn the event this information is protected by the Federal Confidentiality of Alcohol and Drug Abuse Patient Records regulations: The Federal rules restrict any use of the information to criminally investigate or prosecute any alcohol or drug abuse patient.[facility] HospitalIn the event this information is protected by the Federal Confidentiality of Alcohol and Drug Abuse Patient Records regulations: The Federal rules restrict any use of the information to criminally investigate or prosecute any alcohol or drug abuse patient.[facility] HospitalIn the event this information is protected by the Federal Confidentiality of Alcohol and Drug Abuse Patient Records regulations: The Federal rules restrict any use of the information to criminally investigate or prosecute any alcohol or drug abuse patient.[facility] HospitalIn the event this information is protected by the Federal Confidentiality of Alcohol and Drug Abuse Patient Records regulations: The Federal rules restrict any use of the information to criminally investigate or prosecute any alcohol or drug abuse patient.[facility] HospitalIn the event this information is protected by the Federal Confidentiality of Alcohol and Drug Abuse Patient Records regulations: The Federal rules restrict any use of the information to criminally investigate or prosecute any alcohol or drug abuse patient.[facility] HospitalIn the event this information is protected by the Federal Confidentiality of Alcohol and Drug Abuse Patient Records regulations: The Federal rules restrict any use of the information to criminally investigate or prosecute any alcohol or drug abuse patient.[facility] HospitalIn the event this information is protected by the Federal Confidentiality of Alcohol and Drug Abuse Patient Records regulations: The Federal rules restrict any use of the information to criminally investigate or prosecute any alcohol or drug abuse patient.[facility] HospitalIn the event this information is protected by the Federal Confidentiality of Alcohol and Drug Abuse Patient Records regulations: The Federal rules restrict any use of the information to criminally investigate or prosecute any alcohol or drug abuse patient.[facility] HospitalIn the event this information is protected by the Federal Confidentiality of Alcohol and Drug Abuse Patient Records regulations: The Federal rules restrict any use of the information to criminally investigate or prosecute any alcohol or drug abuse patient.[facility] HospitalIn the event this information is protected by the Federal Confidentiality of Alcohol and Drug Abuse Patient Records regulations: The Federal rules restrict any use of the information to criminally investigate or prosecute any alcohol or drug abuse patient.[facility] HospitalIn the event this information is protected by the Federal Confidentiality of Alcohol and Drug Abuse Patient Records regulations: The Federal rules restrict any use of the information to criminally investigate or prosecute any alcohol or drug abuse patient.[facility] HospitalIn the event this information is protected by the Federal Confidentiality of Alcohol and Drug Abuse Patient Records regulations: The Federal rules restrict any use of the information to criminally investigate or prosecute any alcohol or drug abuse patient.[facility] HospitalIn the event this information is protected by the Federal Confidentiality of Alcohol and Drug Abuse Patient Records regulations: The Federal rules restrict any use of the information to criminally investigate or prosecute any alcohol or drug abuse patient.[facility] HospitalIn the event this information is protected by the Federal Confidentiality of Alcohol and Drug Abuse Patient Records regulations: The Federal rules restrict any use of the information to criminally investigate or prosecute any alcohol or drug abuse patient.[facility] HospitalIn the event this information is protected by the Federal Confidentiality of Alcohol and Drug Abuse Patient Records regulations: The Federal rules restrict any use of the information to criminally investigate or prosecute any alcohol or drug abuse patient.[facility] HospitalIn the event this information is protected by the Federal Confidentiality of Alcohol and Drug Abuse Patient Records regulations: The Federal rules restrict any use of the information to criminally investigate or prosecute any alcohol or drug abuse patient.[facility] HospitalIn the event this information is protected by the Federal Confidentiality of Alcohol and Drug Abuse Patient Records regulations: The Federal rules restrict any use of the information to criminally investigate or prosecute any alcohol or drug abuse patient.[facility] HospitalIn the event this information is protected by the Federal Confidentiality of Alcohol and Drug Abuse Patient Records regulations: The Federal rules restrict any use of the information to criminally investigate or prosecute any alcohol or drug abuse patient.[facility] Reason for Visit (unrecogniz ed section and content) Reason Comments Orders Testing supplies Reason Onset Date Comments Community Monitoring Outreach 02/04/2022 [facility] F/ Asthma CDM Outreach Reason Comments Allied Health Visit DM Reason Comments cancelling apt/fall in hospital Reason Onset Date Comments Community Monitoring Outreach 02/22/2022 [facility] F/ Asthma CDM Telephonic Outreach Reason Comments Weight Loss Reason Onset Date Comments Community Monitoring Outreach 03/03/2022 [facility] F/ Asthma Telephonic CDM Outreach Reason Onset Date Comments Community Monitoring Outreach 03/15/2022 [facility] F/ Asthma Telephonic CDM Outreach Reason Comments Follow-up Post-op Reason Onset Date Comments Community Monitoring Outreach 03/25/2022 [facility] F Telephonic CDM Outreach Reason Comments Diabetes Reason Onset Date Comments Community Monitoring Outreach 04/06/2022 [facility] F/ CDM Outreach Reason Comments Home Health Orders Reason Onset Date Comments Community Monitoring Outreach 04/21/2022 [facility] F / Asthma CDM Outreach Reason Comments Patient Update Reason Comments Handicap Placard Reason Onset Date Comments Refill Request 05/19/2022 SEE RX NOTES Reason Onset Date Comments Community Monitoring Outreach 05/19/2022 [facility] F/ Asthma CDM Outreach Reason Onset Date Comments Community Monitoring Outreach 06/07/2022 [facility] F / Asthma CDM Outreach Reason Comments Orders Reason Onset Date Comments Medication Refill 06/16/2022 Reason Onset Date Comments Community Monitoring Outreach 06/23/2022 Reason Comments Appointment Reason Comments Orders Mobility scooter Reason Onset Date Comments Community Monitoring Outreach 08/13/2022 Reason Comments Establish Care Follow up Reason Comments Refill Request Reason Onset Date Comments Community Monitoring Outreach 09/15/2022 Reason Comments Orders Priority care medica l supply- do not use Reason Onset Date Comments Community Monitoring Outreach 10/18/2022 Reason Onset Date Comments Community Monitoring Outreach 11/22/2022 Reason Onset Date Comments Refill Request 12/22/2022 Reason Onset Date Comments Community Monitoring Outreach 12/30/2022 Reason Onset Date Comments Community Monitoring Outreach 01/04/2023 Reason Onset Date Comments Community Monitoring Outreach 02/02/2023 Reason Onset Date Comments Community Monitoring Outreach 02/09/2023 Reason Onset Date Comments Community Monitoring Outreach 02/25/2023 Reason Comments Establish Care follow up Reason Comments Results Reason Comments Faxed to [facility] med/surg Reason Comments Patient Request Patient is going to the zoo with his fiber design engineer Atif Ferraro at the [facility] and she is in need of a letter for her to be able to take him free of charge to the zoo stating that he is disabled and needs her assistance and 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 Reason Comments Hospital F/U Reason Comments verbal orders Reason Onset Date Comments Community Monitoring Outreach 04/20/2023 Reason Comments F/U 6 months Reason Onset Date Comments Community Monitoring Outreach 06/27/2023 Reason Onset Date Comments Community Monitoring Outreach 07/20/2023 Reason Onset Date Comments Community Monitoring Outreach 09/02/2023 Reason Comments Research Pre-Screen Research Reason Onset Date Comments Community Monitoring Outreach 09/23/2023 Care Teams (unrecognized sec tion and content) Divorce Mediator Relationship Specialty Start Date End Date Manuel Canales MD [address] [place], [place] [id number] PCP - General Internal Medicine 12/31/13 Nivia, Arrington S Trials Manager Cardiology 07/09/20 Albino Copeland, mining support workerSupervisor Type Disk Quality Control Internal Medicine 05/19/21 Jana Lara, [facility] [address] [place], [place] [id number] Pharmacist Pharmacy 02/02/22 Divorce Mediator Relationship Specialty Start Date End Date Manuel Canales MD [address] [place], [place] [id number] PCP - General Internal Medicine 12/31/13 Nivia, Arrington S Trials Manager Cardiology 07/09/20 Albino Copeland, mining support workerSupervisor Type Disk Quality Control Internal Medicine 05/19/21 [facility] [address] [facility] [place] [address] Pharmacist Pharmacy 02/02/22 Divorce Mediator Relationship Specialty Start Date End Date Manuel Canales MD [address] [place] [address] PCP - General Internal Medicine 12/31/13 Nivia, Cosme S Trials Manager Cardiology 07/09/20 Albino Copeland, mining support workerSupervisor Type Disk Quality Control Internal Medicine 05/19/21 [facility] [address] [place] [address] Pharmacist Pharmacy 02/02/22 Divorce Mediator Relationship Specialty Start Date End Date No, Physician [facility] PCP - General 02/10/22 Divorce Mediator Relationship Specialty Start Date End Date Manuel Canales MD [address] [place] [address] PCP - General Internal Medicine 12/31/13 Nivia, Arrington S Trials Manager Cardiology 07/09/20 Albino Copeland, mining support workerSupervisor Type Disk Quality Control Internal Medicine 05/19/21 [facility] [address] [facility] [place] [address] Pharmacist Pharmacy 02/02/22 Divorce Mediator Relationship Specialty Start Date End Date No, Physician [facility] PCP - General 02/10/22 Divorce Mediator Relationship Specialty Start Date End Date Manuel Canales MD [address] [place] [address] PCP - General Internal Medicine 12/31/13 Nivia, Arrington S Trials Manager Cardiology 07/09/20 Lorrie Osorio, RN [address] [place] [address] Supervisor Type Disk Quality Control 05/08/2105/08 Lex Posada (Rn) [address] [place], [place] [id number] Supervisor Type Disk Quality Control Family Practice 05/08/2105/07 Albino Copeland, mining support workerSupervisor Type Disk Quality Control Internal Medicine 05/19/21 [facility] [facility] [address] [place] [address] Pharmacist Pharmacy 02/02/22 Divorce Mediator Relationship Specialty Start Date End Date Manuel Canales MD [address] [place], [place] [id number] PCP - General Internal Medicine 12/31/13 Nivia, Cosme S Trials Manager Cardiology 07/09/20 Albino Copeland, mining support workerSupervisor Type Disk Quality Control Internal Medicine 05/19/21 Jeanne Lara, [facility] [address] [place] [address] Pharmacist Pharmacy 02/02/22 Divorce Mediator Relationship Specialty Start Date End Date No, Physician [facility] PCP - General 02/10/22 Divorce Mediator Relationship Specialty Start Date End Date No, Physician [facility] PCP - General 02/10/22 Divorce Mediator Relationship Specialty Start Date End Date No, Physician [facility] PCP - General 02/10/22 Divorce Mediator Relationship Specialty Start Date End Date No, Physician [facility] PCP - General 02/10/22 Divorce Mediator Relationship Specialty Start Date End Date Manuel Canales MD [address] [place] [address] PCP - General Internal Medicine 12/31/13 Nivia, Cosme S Trials Manager Cardiology 07/09/20 Albino Copeland, mining support workerSupervisor Type Disk Quality Control Internal Medicine 05/19/21 [facility] [address] [facility] [place] [address] Pharmacist Pharmacy 02/02/22 Divorce Mediator Relationship Specialty Start Date End Date Manuel Canales MD [address] [facility] [place] [address] PCP - General Internal Medicine 12/31/13 Nivia, Arrington S Trials Manager Cardiology 07/09/20 Albino Copeland, mining support workerSupervisor Type Disk Quality Control Internal Medicine 05/19/21 [facility] [address] [facility] [address] Pharmacist Pharmacy 02/02/22 Divorce Mediator Relationship Specialty Start Date End Date Manuel Canales MD [address] [facility] [place] [address] PCP - General Internal Medicine 12/31/13 Nivia, Cosme S Trials Manager Cardiology 07/09/20 Albino Copleand, mining support workerSupervisor Type Disk Quality Control Internal Medicine 05/19/21 Jana Lara, [facility] [address] [facility] [place] [address] Pharmacist Pharmacy 02/02/22 Divorce Mediator Relationship Specialty Start Date End Date Manuel Canales MD [address] [place] [address] PCP - General Internal Medicine 05/05/22 Divorce Mediator Relationship Specialty Start Date End Date Manuel Canales MD [facility] [place] [address] PCP - General Internal Medicine 05/05/22 Divorce Mediator Relationship Specialty Start Date End Date Manuel Canales MD [address] [place] [address] PCP - General Internal Medicine 05/05/22 Divorce Mediator Relationship Specialty Start Date End Date Manuel Canales MD [address] [place] [address] PCP - General Internal Medicine 12/31/13 Nivia, Cosme S Trials Manager Cardiology 07/09/20 Albino Copeland, mining support workerSupervisor Type Disk Quality Control Internal Medicine 05/19/21 [facility] [address] [place] [address] Pharmacist Pharmacy 02/02/22 Divorce Mediator Relationship Specialty Start Date End Date Manuel Canales MD [address] [place] [address] PCP - General Internal Medicine 12/31/13 Nivia, Cosme S Trials Manager Cardiology 07/09/20 Albino Copeland, mining support workerSupervisor Type Disk Quality Control Internal Medicine 05/19/21 [facility] [address] [facility] [place] [address] Pharmacist Pharmacy 02/02/22 Divorce Mediator Relationship Specialty Start Date End Date Manuel Canales MD [address] [place] [address] PCP - General Internal Medicine 12/31/13 Nivia, Cosme S Trials Manager Cardiology 07/09/20 Albino Copeland, mining support workerSupervisor Type Disk Quality Control Internal Medicine 05/19/21 [facility] [address] [facility] [place] [address] Pharmacist Pharmacy 02/02/22 Divorce Mediator Relationship Specialty Start Date End Date Manuel Canales MD [address] [facility] [place] [address] PCP - General Internal Medicine 12/31/13 Nivia, Cosme S Trials Manager Cardiology 07/09/20 Lex Posada, mining support workerSupervisor Type Disk Quality Control Internal Medicine 05/19/21 [facility] [address] [facility] [place] [address] Pharmacist Pharmacy 02/02/22 Divorce Mediator Relationship Specialty Start Date End Date Manuel Canales MD [address] [facility] [place] [address] PCP - General Internal Medicine 12/31/13 Nivia, Cosme S [address] [facility] [place] [address] Trials Manager Cardiology 07/09/20 Lex Posada mining support workerSupervisor Type Disk Quality Control Internal Medicine 05/19/21 [facility] [address] [facility] [place] [address] Pharmacist Pharmacy 02/02/22 Divorce Mediator Relationship Specialty Start Date End Date Manuel Canales MD [address] [facility] [place] [address] PCP - General Internal Medicine 12/31/13 Nivia, Arrington S [address] [facility] [place] [address] Trials Manager Cardiology 07/09/20 Lex Posada, mining support workerSupervisor Type Disk Quality Control Internal Medicine 05/19/21 [facility] [address] [facility] [place] [address] Pharmacist Pharmacy 02/02/22 Divorce Mediator Relationship Specialty Start Date End Date Manuel Canales MD [address] [facility] [place] [address] PCP - General Internal Medicine 12/31/13 Nivia, Cosme S [address] [facility] [place] [address] Trials Manager Cardiology 07/09/20 Lex Posada, mining support workerSupervisor Type Disk Quality Control Internal Medicine 05/19/21 [facility] [address] [facility] [place] [address] Pharmacist Pharmacy 02/02/22 Divorce Mediator Relationship Specialty Start Date End Date Manuel Canales MD [address] [facility] [place] [address] PCP - General Internal Medicine 12/31/13 Nivia, Cosme S [address] [facility] [place] [address] Trials Manager Cardiology 07/09/20 Lex Posada RN Supervisor Type Disk Quality Control Internal Medicine 05/19/21 [facility] [address] [facility] [place] [address] Pharmacist Pharmacy 02/02/22 Divorce Mediator Relationship Specialty Start Date End Date Manuel Canales MD [address] [facility] [place] [address] PCP - General Internal Medicine 12/31/13 Nivia, Arrington S [address] [facility] [place] [address] Trials Manager Cardiology 07/09/20 Lex Posada, mining support workerSupervisor Type Disk Quality Control Internal Medicine 05/19/21 [facility] [address] [facility] [place] [address] Pharmacist Pharmacy 02/02/22 Divorce Mediator Relationship Specialty Start Date End Date Manuel Canales MD [address] [facility] [place] [address] PCP - General Internal Medicine 12/31/13 Nivia, Cosme S [address] [facility] [place] [address] Trials Manager Cardiology 07/09/20 Lex Posada, mining support workerSupervisor Type Disk Quality Control Internal Medicine 05/19/21 MasonJeanne carpentersameerKindred Hospital [address] [facility] [place] [address] Pharmacist Pharmacy 02/02/22 Divorce Mediator Relationship Specialty Start Date End Date Manuel Canales MD [address] [facility] [place] [address] PCP - General Internal Medicine 12/31/13 Nivia, Cosme S [address] [facility] [place] [address] Trials Manager Cardiology 07/09/20 Lex Posada mining support workerSupervisor Type Disk Quality Control Internal Medicine 05/19/21 MasonJeannesameerKind[facility] [address] [facility] [place] [address] Pharmacist Pharmacy 02/02/22 Divorce Mediator Relationship Specialty Start Date End Date Manuel Canales MD [address] [facility] [place] [address] PCP - General Internal Medicine 12/31/13 Nivia, Arrington S [address] [facility] [place] [address] Trials Manager Cardiology 07/09/20 Lex Posada, mining support workerSupervisor Type Disk Quality Control Internal Medicine 05/19/21 [facility] [address] [facility] [place] [address] Pharmacist Pharmacy 02/02/22 Divorce Mediator Relationship Specialty Start Date End Date Manuel Canales MD [address] [facility] [place] [address] PCP - General Internal Medicine 12/31/13 Nivia, Cosme S [address] [facility] [place] [address] Trials Manager Cardiology 07/09/20 Lex Posada, mining support workerSupervisor Type Disk Quality Control Internal Medicine 05/19/21 [facility] [address] [facility] [place] [address] Pharmacist Pharmacy 02/02/22 Divorce Mediator Relationship Specialty Start Date End Date Manuel Canales MD [address] [facility] [place] [address] PCP - General Internal Medicine 12/31/13 Nivia, Arrington S [address] [facility] [place] [address] Trials Manager Cardiology 07/09/20 Lex Posada, mining support workerSupervisor Type Disk Quality Control Internal Medicine 05/19/21 [facility] [address] [facility] [place] [address] Pharmacist Pharmacy 02/02/22 Divorce Mediator Relationship Specialty Start Date End Date Manuel Canales MD [address] [facility] [place] [address] PCP - General Internal Medicine 12/31/13 Nivia, Cosme S [address] [facility] [place] [address] Trials Manager Cardiology 07/09/20 Lex Posada, mining support workerSupervisor Type Disk Quality Control Internal Medicine 05/19/21 [facility] [address] [place] [address] Pharmacist Pharmacy 02/02/22 Divorce Mediator Relationship Specialty Start Date End Date Manuel Canales MD [address] [facility] [place] [address] PCP - General Internal Medicine 12/31/13 Nivia, Arrington S [address] [facility] [place] [address] Trials Manager Cardiology 07/09/20 Lex Posada, mining support workerSupervisor Type Disk Quality Control Internal Medicine 05/19/21 [facility] [address] [facility] [place] [address] Pharmacist Pharmacy 02/02/22 Divorce Mediator Relationship Specialty Start Date End Date Manuel Canales MD [address] [facility] [place] [address] PCP - General Internal Medicine 12/31/13 Nivia, Cosme S [address] [facility] [place] [address] Trials Manager Cardiology 07/09/20 Lex Posada, mining support workerSupervisor Type Disk Quality Control Internal Medicine 05/19/21 [facility] [address] [place] [address] Pharmacist Pharmacy 02/02/22 Divorce Mediator Relationship Specialty Start Date End Date Manuel Canales MD [address] [place] [address] PCP - General Internal Medicine 12/31/13 Nivia, Cosme S [address] [facility] [place] [address] Trials Manager Cardiology 07/09/20 Lex Posada, mining support workerSupervisor Type Disk Quality Control Internal Medicine 05/19/21 [facility] [address] [place] [address] Pharmacist Pharmacy 02/02/22 Divorce Mediator Relationship Specialty Start Date End Date Manuel Canales MD [address] [place] [address] PCP - General Internal Medicine 12/31/13 Cosme Gonzáles [address] [place] [address] Trials Manager Cardiology 07/09/20 Lex Posada RN Supervisor Type Disk Quality Control Internal Medicine 05/19/21 [facility] [address] [place] [address] Pharmacist Pharmacy 02/02/22 Divorce Mediator Relationship Specialty Start Date End Date Manuel Canales MD [address] [place] [address] PCP - General Internal Medicine 12/31/13 Cosme Gonzáles [address] [place] [address] Trials Manager Cardiology 07/09/20 Lex Posada RN Supervisor Type Disk Quality Control Internal Medicine 05/19/21 [facility] [address] [place] [address] Pharmacist Pharmacy 02/02/22 Divorce Mediator Relationship Specialty Start Date End Date Manuel Canales MD [address] [place] [address] PCP - General Internal Medicine 12/31/13 Cosme Gonzáles MD [address] [place] [address] Trials Manager Cardiology 07/09/20 Lex Posada RN Supervisor Type Disk Quality Control Internal Medicine 05/19/21 [facility] [address] [place] [address] Pharmacist Pharmacy 02/02/22 Divorce Mediator Relationship Specialty Start Date End Date Manuel Canales MD [address] [place] [address] PCP - General Internal Medicine 12/31/13 Cosme Gonzáles MD [address] [place] [address] Trials Manager Cardiology 07/09/20 Lex Posada RN Supervisor Type Disk Quality Control Internal Medicine 05/19/21 [facility] [address] [place] [address] Pharmacist Pharmacy 02/02/22 Divorce Mediator Relationship Specialty Start Date End Date Manule Canales MD [address] [place] [address] PCP - General Internal Medicine 12/31/13 Cosme Gonzáles MD [address] [place] [address] Trials Manager Cardiology 07/09/20 Lex Posada RN Supervisor Type Disk Quality Control Internal Medicine 05/19/21 [facility] Pharmacist Pharmacy 02/02/22 Divorce Mediator Relationship Specialty Start Date End Date Manuel Canales MD [address] [place], [place] [address] PCP - General Internal Medicine 12/31/13 Cosme Gonzáles MD [address] [place], [place] [address] Trials Manager Cardiology 07/09/20 Lex Posada, mining support workerSupervisor Type Disk Quality Control Internal Medicine 05/19/21 [facility] Pharmacist Pharmacy 02/02/22 Divorce Mediator Relationship Specialty Start Date End Date Manuel Canales MD [address] [place], [place] [address] PCP - General Internal Medicine 12/31/13 Cosme Gonzáles MD [address] [place], [place] [address] Trials Manager Cardiology 07/09/20 Lex Posada mining support workerSupervisor Type Disk Quality Control Internal Medicine 05/19/21 Divorce Mediator Relationship Specialty Start Date End Date Manuel Canales MD [address] [place], [place] [address] PCP - General Internal Medicine 12/31/13 Cosme Gonzáles MD [address] [place], [place] [id number] Trials Manager Cardiology 07/09/20 Lex Posada, mining support workerSupervisor Type Disk Quality Control Internal Medicine 05/19/21 (unrecognized sect ion and content) No Status Records FoundNo Status Records FoundNo Status Records Found INFORMATION SOURCE (unrecogn ized section and content) DATE CREATED AUTHOR AUTHOR'S ORGANIZ ATION 06/20/2022 [facility] DATE CREATED AUTHOR AUTHOR'S ORGANIZ ATION 11/06/2023 [facility] FOR RECORDS PERTAINING TO PATIENTS WHO ARE OR HAVE BEEN ENROLLED IN A CHEMICAL DEPENDENCY/SUBSTANCEABUSE PROGRAM, SOME INFORMATION MAY BE OMITTED. This clinical summary was aggregated from multiple sources. Caution should be exercised in using it in the provision of clinical care. This summary normalizes information from multiple sources, and as a consequence, information in this document may materially change the coding, format and clinical context of patient data. In addition, data may be omitted in some cases. CLINICAL DECISIONS SHOULD BE BASED ON THE PRIMARY CLINICAL RECORDS. [facility] [employer] provides no warranty or guarantee of the accuracy or completeness of information in this document.
[2023-11-14 09:33] LABS: Vitamin B12 731 pg/mL (211-911)
== END ==
LOC: OLS.SW 06:20
PROVIDERS: PCP Internal Medicine; Referring Provider Internal Medicine; Visit Provider Internal Medicine
DX: F10.20 Alcohol dependence, uncomplicated (principal)
CPT/HCPCS: 36415; 82607; 82746

== ENCOUNTER → 2023-12-30 | Outpatient (REF) | payer MEDICARE, MEDICAID, SELFPAY ==
--- OUTSIDE RECORDS SUMMARY | 2023-12-30 05:06 | XMS RPT_ITS | CCD ---
Author Name Unknown Address [address] [facility] [address] [place] [address] Organization [facility] Care Team Providers Care Fish Drier Name Role Phone Manuel Beebe MD Primary Care Provider Nivia, [place]al[place] S Unavailable Lex WINSTON, Albino Oliveira Unavailable Unavailabl e [place] [facility], Keti Unavailable Unavailable Primary Care Provider Unavailabl e No, Physician Primary Care Provider Unavailabl renny Osorio RN, Lorrie Unavailable Lex Posada (Rn) Unavailable Manuel Beebe MD Primary Care Provider Manuel Beebe MD Primary Care Provider Nivia, [place] S Unavailable Lex WINSTON, Albino Oliveira Unavailable Unavailabl e [place] [facility], Keti Unavailable NO, PHYSICIAN Primary Care Unavailable VIAUMUNIRA Attending Unavailable TALAMPAS, MANUEL D Primary Care Unavailable VIAU, MUNIRA ROMERO Attending Unavailable VIAU, MUNIRA ROMERO Attending Unavailable TALAMPAS, MANUEL D Primary Care Unavailable NO, PHYSICIAN Primary Care Unavailable VIAU, MUNIRA ROMERO Attending Unavailable VIAUMUNIRA Referring Unavailable VIAU, MUNIRA [...] Referring Unavailable VIAU, MUNIRA ROMERO Attending Unavailable TUMUAMBROSIO Referring Unavailab le VIAU, MUNIRA ROMERO Attending Unavailable TALAMPAS, MANUEL D Primary Care Unavailable Nivia, [place] S Unavailable [facility], Keti Unavailable Albino WINSTON, Lex Oliveira Unavailable Unavailabl e Parker BUSTILLO, Manuel Quarles Primary Care Provider Nivia, Cosme S Unavailable Albino WINSTON, Lex Oliveira Unavailable Unavailabl e [facility], Keti Unavailable Nivia, [place] S Unavailable Albino WINSTON, Lex Oliveira Unavailable Unavailabl e Nivia BUSTILLO, [place]al[place] S Unavailable [facility], Keti Unavailable OLGA STYLES Attending Unavailable TALAMPAS, MANUEL D Primary Care Unavailable TALAMPAS, AMNUEL D Primary Care Unavailable RIVER FIORE Attending Unavailable TALAMPAS, MANUEL D Primary Care Unavailable RIVER FIORE Referring Unavailable TALAMPAS, MANUEL D Primary Care Unavailable DWIGHTIGERONIMO A Referring Unavailable TALAMPAS, MANUEL D Primary Care Unavailable RIVER FIORE Referring Unavailable MASCIGERONIMO Attending Unavailable TALAMPAS, MANULE D Primary Care Unavailable TALAMPAS, MANUEL D Attending Unavailable TALAMPAS, MANUEL D Primary Care Unavailable MASCI, GERONIMO A Referring Unavailable TALAMPAS, MANUEL D Primary Care Unavailable MASCI, GERONIMO A Referring Unavailable MASCI, GERONIMO A Referring Unavailable REYES ROSARIO Attending Unavaila ble TALAMPAS, MANUEL D Primary Care Unavailable MASCI, GERONIMO A Referring Unavailable TALAMPAS, MANUEL D Primary Care Unavailable MASCI, GERONIMO A Referring Unavailable TALAMPAS, MANUEL D Primary Care Unavailable BENDARAM, REYES YOUNGBLOOD Referring Unavaila ble TALAMPAS, MANUEL D Primary Care Unavailable MANUEL BEEBE Primary Care Unavailable HOME LOREDO Referring Unavailable MANUEL BEEBE Primary Care Unavailable HOME LOREDO Attending Unavailable HOME LOREDO Referring Unavailable MANUEL BEEBE Primary Care Unavailable Allergies Allergy Classification Reported Allergen(s) Allergy Type Date of Onset Reaction(s) Facility (20 sources) Acetaminophen / HYDROcodone; Translations: [HYDROCODONE-ACET AMINOPHEN] Drug Allergy 9 Intolerance, Other (See Comments) [facility] Work Phone: (20 sources) metFORMIN; Translations: [METFORMIN] Drug Allergy 1 Diarrhea [facility] Work Phone: (13 sources) oxyCODONE; Translations: [OXYCODONE] Drug Allergy 2 Itching, Headache [facility] (10 sources) Acetaminophen; Translations: [ACETAMINOPHEN] Drug Allergy 2 Other (See Comments) [facility] (10 sources) Bermuda grass pollen extract; Translations: [ALLERG EX,GRASS POLLEN-BERMUDA] Drug Allergy 9 Unknown [facility] (11 sources) Acetaminophen / oxyCODONE; Translations: [OXYCODONE-ACETAM INOPHEN] Drug Allergy 3 Unknown [facility] Medications Current Medications Medication Drug Class(es) Dates [...] Sig (Original) acetaZOLAMIDE 250 mg oral tablet (10 sources) Carbonic Anhydrase Inhibitor Start: 08-17-2023 take [...] of unspecified site] Onset: 10-25-2019 10-25-2019 Chronic Administrative/social admission (2 sources) Occupational exposure to other risk factors; Translations: [Personal history of contact with and (suspected) exposure to potentially hazardous body fluids] Onset: 12-22-2023 12-22-2023 Episodic Asthma (20 sources) Mild intermittent asthma; Translations: [Mild intermittent asthma, uncomplicated] Onset: 03-08-2019 03-08-2019 Chronic Cancer of prostate (20 sources) Malignant tumor of prostate; Translations: [Malignant neoplasm of prostate] Onset: 01-08-2022 01-08-2022 Chronic Cardiac dysrhythmias (20 sources) Atrial fibrillation; Translations: [Unspecified atrial fibrillation] Onset: 12-31-2013 11-02-2021 Chronic Chronic kidney disease (20 sources) Chronic kidney disease stage 3A ; Translations: [Chronic kidney disease, stage 3a] Onset: 04-12-2023 04-12-2023 Chronic Coagulation and hemorrhagic disorders (20 sources) Platelet count below reference range; Translations: [...] 10-25-2019 09-28-2022 Chronic Diabetes mellitus with complications (20 sources) Type 2 diabetes mellitus; Translations: [Type [...] encounter for closed fracture] Onset: 02-10-2022 Episodic Hyperplasia of prostate (20 sources) Weak [...] Translations: [Vitamin D deficiency] Onset: 09-28-2023 Chronic Osteoporosis (1 source) Age-related osteoporosis without current pathological fracture; Translations: [Age-related osteoporosis without current pathological fracture] Onset: 12-01-2023 Chronic Other connective tissue disease (4 sources) History of repair of hip joint; Translations: [Presence of unspecified artificial hip joint] Chronic Other diseases of veins and lymphatics (20 sources) Bilateral lower limb edema; Translations: [Chronic venous hypertension (idiopathic) without complications of bilateral lower extremity] Onset: 04-23-2018 04-23-2018 Chronic Other endocrine disorders (1 source) Hypopituitarism; 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)] Onset: 10-26-2023 Chronic Other endocrine disorders (1 source) Testicular [...] [Adult failure to thrive] Episodic Parkinson`s disease (20 sources) Parkinson's disease; Translations: [Parkinson's disease] Onset: 04-12-2023 Chronic Peripheral and visceral atherosclerosis (20 sources) Peripheral vascular disease, unspecified; Translations: [Peripheral [...] use] Episodic Respiratory failure; insufficiency; arrest (adult) (20 sources) Jzoko-at-jiqtnck respiratory failure; Translations: [Acute and chronic respiratory [...] [Post traumatic seizures] Onset: 12-31-2013 11-02-2021 Episodic Genitourinary symptoms and ill-defined conditions (1 source) Other retention of urine; Translations: [Urinary retention due to benign prostatic hyperplasia] Onset: 09-13-2023 Episodic Malaise and fatigue (20 sources) Asthenia; Translations: [Other malaise] Onset: 12-31-2013 11-02-2021 Episodic Nausea and vomiting (2 sources) Nausea; Translations: [Nausea] Onset: 04-12-2023 Episodic Other aftercare (20 sources) Long-term current use of anticoagulant; Translations: [ferry terminal agent (current) use of anticoagulants] Onset: 02-24-2017 02-24-2017 Episodic Other aftercare (20 sources) Drug therapy finding; Translations: [ferry terminal agent (current) use of anticoagulants] Onset: 10-25-2019 10-25-2019 Episodic Other aftercare (1 source) ferry terminal agent (current) use of insulin; Translations: [Type 2 diabetes mellitus with other specified complication, with long-term current use of insulin (HCC)] Onset: 04-12-2023 Episodic Other circulatory disease (20 [...] Vital Sign Value Performing Clinician Saray adam 12-21-2023 14:52-0500 Body temperature 97.9 [degF] Injection Wstr Work Phone: [facility] 12-21-2023 14:52-0500 Diastolic blood pressure 62 mm[Hg] Injection Wstr Work Phone: [facility] 12-21-2023 14:52-0500 Heart rate 68 /min Injection Wstr Work Phone: [facility] 12-21-2023 14:52-0500 Respiratory rate 12 /min Injection Wstr Work Phone: [facility] 12-21-2023 14:52-0500 SaO2% (BldA) [Mass fraction] 97 % Injection Wstr Work Phone: [facility] 12-21-2023 14:52-0500 Systolic blood pressure 82 mm[Hg] Injection Wstr Work Phone: [facility] 04-12-2023 14:21-0400 Diastolic blood pressure 57 mm[Hg] Olga Styles MERCHANDISING MANAGER.RESEARCH TEST ENGINE OPERATOR Work Phone: [facility] 04-12-2023 14:21-0400 Systolic blood pressure 83 mm[Hg] Olga Styles MERCHANDISING MANAGER.RESEARCH TEST ENGINE OPERATOR Work Phone: [facility] 04-12-2023 14:10-0400 Body weight 73.48 kg Olga Styles MERCHANDISING MANAGER.RESEARCH TEST ENGINE OPERATOR Work Phone: [facility] 04-12-2023 14:10-0400 Heart rate 70 /min Olga Styles MERCHANDISING MANAGER.RESEARCH TEST ENGINE OPERATOR Work Phone: [facility] 04-12-2023 14:10-0400 Respiratory rate 14 /min Olga Styles MERCHANDISING MANAGER.RESEARCH TEST ENGINE OPERATOR Work Phone: [facility] 04-12-2023 14:10-0400 SaO2% (BldA) [Mass fraction] 99 % Olga Styles MERCHANDISING MANAGER.RESEARCH TEST ENGINE OPERATOR Work Phone: [facility] 03-23-2023 08:11-0400 Body temperature 97.7 [degF] Manuel Beebe MD Work Phone: [facility] 03-23-2023 08:11-0400 Body weight 78.47 kg Manuel Beebe MD Work Phone: [facility] 03-23-2023 08:11-0400 Diastolic blood pressure 72 mm[Hg] Manuel Beebe MD Work Phone: [facility] 03-23-2023 08:11-0400 Heart rate 65 /min Manuel Beebe MD Work Phone: [facility] 03-23-2023 08:11-0400 Respiratory rate 18 /min Manuel Beebe MD Work Phone: [facility] 03-23-2023 08:11-0400 SaO2% (BldA) [Mass fraction] 97 % Manuel Beebe MD Work Phone: [facility] 03-23-2023 08:11-0400 Systolic blood pressure 118 mm[Hg] Manuel Beebe MD Work Phone: [facility] 03-09-2023 11:48-0400 Body height 177.8 cm Home Loredo MD Work Phone: [facility] 03-09-2023 11:48-0400 Body temperature 97 [degF] Home Loredo MD Work Phone: [facility] 03-09-2023 11:48-0400 Body weight 78.02 kg Home Loredo MD Work Phone: [facility] 03-09-2023 11:48-0400 Diastolic blood pressure 48 mm[Hg] Home Loredo MD Work Phone: [facility] 03-09-2023 11:48-0400 Heart rate 70 /min Home Loredo MD Work Phone: [facility] 03-09-2023 11:48-0400 SaO2% (BldA) [Mass fraction] 98 % Home Loredo MD Work Phone: [facility] 03-09-2023 11:48-0400 Systolic blood pressure 119 mm[Hg] Home Loredo MD Work Phone: [facility] 09-02-2022 11:18-0400 Body height 175.3 cm Home Loredo MD Work Phone: [facility] 09-02-2022 11:18-0400 Body temperature 97.7 [degF] Home Loredo MD Work Phone: [facility] 09-02-2022 11:18-0400 Body weight 77.56 kg Home Loredo MD Work Phone: [facility] 09-02-2022 11:18-0400 Diastolic blood pressure 73 mm[Hg] Home Loredo MD Work Phone: [facility] 09-02-2022 11:18-0400 Heart rate 70 /min Home Loredo MD Work Phone: [facility] 09-02-2022 11:18-0400 SaO2% (BldA) [Mass fraction] 99 % Home Loredo MD Work Phone: [facility] 09-02-2022 11:18-0400 Systolic blood pressure 116 mm[Hg] Home Loredo MD Work Phone: [facility] 06-15-2022 16:04-0400 Body height 175.3 cm Munira Dickerson MD Work Phone: [facility] 06-15-2022 16:04-0400 Body mass index (BMI) [Ratio] 25.84 kg/m2 Munira Dickerson MD Work Phone: [facility] 06-15-2022 16:04-0400 Body weight 79.38 kg Munira Dickerson MD Work Phone: [facility] 03-23-2022 14:02-0400 Body height 175.3 cm Munira Dickerson MD Work Phone: [facility] 03-23-2022 14:02-0400 Body mass index (BMI) [Ratio] 24.22 kg/m2 Munira Dickerson MD Work Phone: [facility] 03-23-2022 14:02-0400 Body weight 74.39 kg Munira Dickerson MD Work Phone: [facility] Encounters Encounter Date Encounter Type Care Provider Facility Start: 12-22-2023 End: 12-23-2023 Orders Only Rebecca Garcia APRN.MEDIA SALES CONSULTANT Work Phone: Occupational Health Procedures Date Procedure Procedure Detail Performing Clinician Start: 03-23-2023 Hemoglobin A1c/Hemoglobin.total in Blood Manuel Beebe MD Work Phone: Start: 03-09-2023 Us abdominal real ti me w/image limited Margareth Rivas MD Work Phone: Start: 09-02-2022 End: 09-02-2022 Us abdominal real time w/image limited Margareth Rivas MD Work Phone: Start: 04-03-2021 Adult depression scr eening assessment Manuel Beebe MD Work Phone: Start: 02-06-2014 Colonoscopy Manuel simon MD Work Phone: Plan of Treatment Date Care Activity Detail Author Start: 12-22-2024 Creatinine measurement Serum Creatinine [facility] Start: 12-01-2024 BP Controlled (<130/80) BP Controlled (<130/80) [facility] Start: 09-28-2024 BP Controlled (<130/80) BP Controlled (<130/80) [facility] Start: 04-12-2024 BP CONTROLLED (<130/80) BP CONTROLLED (<130/80) [facility] Start: 03-23-2024 ANNUAL PCP TEAM CHRONIC DISEASE VISIT ANNUAL PCP TEAM CHRONIC DISEASE VISIT [facility] Start: 03-23-2024 BP CONTROLLED (<130/80) BP CONTROLLED (<130/80) [facility] Start: 03-09-2024 BP CONTROLLED (<130/80) BP CONTROLLED (<130/80) [facility] Start: 03-09-2024 Creatinine measurement Serum Creatinine [facility] Start: 03-09-2024 SERUM CREATININE SERUM CREATININE [facility] Start: 02-07-2024 Colonoscopy COLONOSCOPY [facility] Start: 02-07-2024 COLORECTAL CANCER SCREENING COLORECTAL CANCER SCREENING [facility] Start: 02-07-2024 Screening for malignant neoplasm of colon [facility] Start: 12-31-2023 Tetanus vaccination Tetanus: Every 10yrs [facility] Start: 12-31-2023 Urine microalbumin profile [facility] Start: 12-22-2023 End: 03-22-2024 OCCUPATIONAL HEALTH EXPOSURE PROFILE/PATIENT [facility] Work Phone: Immunizations Immunization Date Immunization Notes Care Provider Mariangel frank 10-08-2022 influenza virus vaccine, unspecified formulation Lex Posada RN [facility] 10-01-2022 COVID-19 booster vaccine, age 12+ yr, bivalent (PFIZER-BIONTECH) Manuel Beebe MD Work Phone: [facility] 10-01-2022 influenza, high-dose , quadrivalent vaccine (FLUZONE HIGH DOSE QUADRIVALENT) Manuel Beebe MD Work Phone: [facility] 02-23-2022 COVID-19 original vaccine, age 12+ yr, monovalent (PFIZER-BIONTECH - PURPLE TOP) Manuel Beebe MD Work Phone: [facility] 10-07-2021 COVID-19 vaccine, ag e 12+ yr (PFIZER-BIONTECH - PURPLE TOP) Manuel Beebe MD Work Phone: [facility] Work Phone: 09-25-2021 influenza, high-dose , quadrivalent vaccine (FLUZONE HIGH DOSE QUADRIVALENT) Manuel Beebe MD Work Phone: [facility] 03-26-2021 COVID-19 vaccine, ag e 12+ yr (PFIZER-BIONTECH - PURPLE TOP) Manuel Beebe MD Work Phone: [facility] 03-05-2021 COVID-19 vaccine, ag e 12+ yr (PFIZER-BIONTECH - PURPLE TOP) Manuel Beebe MD Work Phone: [facility] 08-12-2020 influenza, high dose seasonal, preservative-free Manuel Beebe MD Work Phone: [facility] Work Phone: 04-02-2020 hepatitis A and hepatitis B vaccine Manuel Beebe MD Work Phone: [facility] Work Phone: 09-24-2019 hepatitis A and hepatitis B vaccine Manuel Beebe MD Work Phone: [facility] Work Phone: 08-23-2019 hepatitis A and hepatitis B vaccine Manuel Beebe MD Work Phone: [facility] Work Phone: 08-02-2019 influenza, high dose seasonal, preservative-free Manuel Beebe MD Work Phone: [facility] 02-13-2019 pneumococcal polysaccharide vaccine, 23 valent Manuel Beebe MD Work Phone: [facility] 08-28-2018 influenza, high dose seasonal, preservative-free Manuel Beebe MD Work Phone: [facility] Work Phone: 10-07-2017 pneumococcal conjuga te vaccine, 13 valent Manuel Beebe MD Work Phone: [facility] 06-19-2017 influenza, high dose seasonal, preservative-free Manuel Beebe MD Work Phone: [facility] Work Phone: 08-11-2016 influenza, seasonal, injectable Manuel Beebe MD Work Phone: [facility] Work Phone: 07-24-2015 influenza virus vaccine, unspecified formulation Manuel Beebe MD Work Phone: [facility] 08-15-2014 influenza virus vaccine, unspecified formulation Manuel Beebe MD Work Phone: [facility] 12-31-2013 pneumococcal polysaccharide vaccine, 23 valent Manuel Beebe MD Work Phone: [facility] 12-31-2013 tetanus toxoid, redu osei diphtheria toxoid, and acellular pertussis vaccine, adsorbed Manuel Beebe MD Work Phone: [facility] NEGATED: Highlighted row has not occurred!09-25-2021 COVID-19 vaccine, age 12+ yr ([employer] - PURPLE TOP) Manuel Beebe MD Work Phone: [facility] Payers Date Payer Category Payer Medicaid [id number] 2023 Medicaid [id number] 2017 Private Health Insurance [employer]ET[employer] A ETNA MEDICARE SUPPLEMENT [id number] 2017-Present [phone] [address] [address] [place] [address] Indemnity [id number] 2017 Private Health Insurance [id number] 2017 Private Health Insurance [facility] [id number] 2013 Medicare MEDICARE MEDICAR E A AND B [id number] 2013-Present [phone] [place] [address] Medicare [id number] 2013 Medicare [id number] 2013 Medicare [id number] 1950 Unknown [id number] 903 1950 Unknown [id number] 903 1952 Unknown [id number] 903 1952 Unknown [id number] 903 1952 Unknown [id number] 903 1952 Unknown [id number] 903 1952 Unknown [id number] 903 1952 Unknown [id number]. 903 1952 Unknown [id number]. 903 1952 Unknown [id number]. 903 1952 Unknown [id number]. 903 Unknown COMMERCIAL COMME RCIAL MISCELLANEOUS [id number] Effective for all dates [phone] [address] [address] [place] [address] [id number] Social History Date Type Detail Facility Start: 12-31-2013 End: 09-02-2022 Tobacco smoking status NHIS Ex-smoker [facility] Work Phone: Start: 1965 End: 07-20-2013 History of tobacco use Current smoker [facility] Work Phone: Start: 12-31-2013 End: 03-09-2023 Cigarettes smoked current (pack per day) - Reported 0.5 [facility] Start: 12-31-2013 End: 09-02-2022 Tobacco use and exposure Smokeless tobacco non-user [facility] Work Phone: Start: 01-12-2022 End: 12-01-2023 Alcohol intake Current non-drinker of alcohol (finding) [facility] Start: 04-01-2020 History SDOH Social Connections Phone 4 [facility] Start: 04-01-2020 History SDOH Social Connections Get Together 3 [facility] Start: 04-01-2020 History SDOH Social Connections Meetings 1 [facility] Start: 04-01-2020 History SDOH Stress [address] [facility] Start: 04-01-2020 History SDOH Financial 5 [facility] Start: 12-31-2013 End: 09-02-2022 Tobacco Comment Had smoked 40 years 1 PPD every 2 to 3 days (about 20 pack years) [facility] Start: 1950 Sex Assigned At Not on file [facility] Start: 12-13-2021 End: 10-01-2022 Exposure to SARS-CoV-2 (event) Not sure [facility] smoking consumption unknown [facility] Work Phone: Start: 02-10-2022 Tobacco [facility] Never [facility] tobacco [facility] Start: 02-15-2022 End: 06-15-2022 Alcohol intake Current drinker of alcohol (finding) [facility] Start: 02-10-2022 History SDOH Alcohol Comment formerly drank, not in many years [facility] Start: 1965 End: 07-20-2013 History of tobacco use Cigarette Smoker [facility] Work Phone: Start: 04-01-2020 End: 03-09-2023 Social connection and isolation panel [facility] Attends Bahai Services Not on file [facility] Do you feel stress - tense, restless, nervous, or anxious, or unable to sleep at night because your mind is troubled all the time - these days [OSQ] Only a little [facility] At any time in the p ast 12 months, were you homeless or living in retirement [including now]? No [facility] Medical Equipment Procedure Code Equipment Code Equipment Origin al Text Equipment Identifier Dates [employer] Wheel Grinder-D [id number] Start: 10-12-2019 [employer] [id number] Start: 10-12-2019 [employer] [id number] Start: 10-12-2019 [employer] [id number] Start: 10-12-2019 [id number] Start: 07-06-2017 End: 02-03-2022 Goals Date Patient Goal Desired Activity /State Personal health goal Personal health goal Personal health goal Clinical Notes 02-24-2017 to 12-27-2023 Telephone Encounter - Netta Espinal RN - 12/27/2023 8:39 AM ESTTelephone Encounter - Luz Elena Ch - 12/22/2023 3:24 PM Glenda Mistry LPN - 12/21/2023 3:00 PM ESTPatient Instructions Note Date & Type Note Facility 12-27-2023 Miscellaneous Notes Medications are not ordered or managed by or hepatology. Netta Espinal RN December 27, 2023 8:40 AM Faculty called in [facility] insurance will not pay, no prior authorization 3000 out of pocket expense Not a skilled in faculty Not a faculty pay can we increase Lactulose 2.Phosphates Pt does not like taking it Not skilled in faculty Will not pay Please call Luisana at [phone] Luz Elena Snell Air Chief Marshal ll documented in this encounter [facility] 12-21-2023 Nurse Note Pt here for injection of Lupron. Given IM in left buttocks. Pt tolerated well. Glenda Humphrey LPN documented in this encounter [facility] 12-06-2023 Note HNO ID: [id number] Author: LEX POSADA RN Service: ? Author Type: Registered Nurse Type: Progress Notes Filed: 12/13/2023 11:48 Note Text: CDM Telephonic Outreach Provider Action/FYI Spk with Atif/ Pedro she states Pt is at [facility], considering AL due to mobility issues. He has a cell, chooses not to use it. Denies concerns or needs. ADL's [place], Goals updated Contacted for: Routine Telephonic Outreach Contact made with patient: Yes Patient identified by name and date of . Are you experiencing any new or worsening symptoms you need to talk about today? Yes Based on baggage agent supervisor, the following disposition is advised: No symptoms or symptoms present, not severe. Routed to: No Action Needed MATT Education Provided this Outreach: No Lex Posada RN December 06, 2023 1:27 PM [facility] 12-06-2023 Note Patient Outreach ([facility] STEPH BAUMANN ([id number]) 1950 M Date Time Provider Department 12/06/23 LEX POSADA [facility] During your visit today, we recorded the following information about you: Lex Posada RN 12/13/2023 11:48 AM Signed CDM Telephonic Outreach Provider Jean Pierre/DOROTA Nelson with [employer]/ Pedro she states Pt is at [facility], considering [place] due to mobility issues. He has a cell, chooses not to use it. Denies concerns or needs. ADL's Falls, Goals updated Contacted for: Routine Telephonic Outreach Contact made with patient: Yes Patient identified by name and date of . Are you experiencing any new or worsening symptoms you need to talk about today? Yes Based on baggage agent supervisor, the following disposition is advised: No symptoms or symptoms present, not severe. Routed to: No Action Needed MATT Education Provided this Outreach: Sanjana Posada RN December 06, 2023 1:27 PM Allergies As of Date: 12/06/2023 Noted Allergy Reaction NORCO (HYDROCODONE-ACETAMINOPHEN) 01/09/2019 5 - Intolerance Comments: Hallucination METFORMIN 12/12/2020 6 - Diarrhea Comments: Even low dose caused diarrhea OXYCODONE-ACETAMINOPHEN 09/08/2023 16 - Unknown Date Reviewed: 12/01/2023 Reviewed by: Ashley Jin, TISH - Fully Assessed Reason for Visit: Community Monitoring Outreach [Other] Prescriptions as of 12/13/2023 - sertraline (ZOLOFT) 50 mg tablet Take 50 mg by mouth once daily. - acetaZOLAMIDE (DIAMOX) 250 mg tablet Take [...] - calcium carbonate (CALCIUM 300 ORAL) Take 1 tablet by mouth once daily. - iron ps complex/B12/folic acid (FERREX 150 [...] mcg tab Take 1,000 mcg by mouth onc (more content not included)... [facility] 12-06-2023 History of Present illness Narrative M Telephonic Outreach Provider Jean Pierre/DOROTA Nelson with [employer]/ Pedro she states Pt is at [facility], considering AL due to mobility issues. He has a cell, chooses not to use it. Denies concerns or needs. ADL's Falls, Goals updated Contacted for: Routine Telephonic Outreach Contact made with patient: Yes Patient identified by name and date of . Are you experiencing any new or worsening symptoms you need to talk about today? Yes Based on baggage agent supervisor, the following disposition is advised: No symptoms or symptoms present, not severe. Routed to: No Action Needed MATT Education Provided this Outreach: No Lex Posada RN December 06, 2023 1:27 PM documented in this encounter [facility] 12-01-2023 Note HNO ID: [id number] Author: REYES ROSARIO MD Service: ? Author Type: Physician Type: Progress Notes Filed: 12/01/2023 13:01 Note Text: Endocrinology and Metabolism [place] Initial Clinic Visit Note NAME: Steph Baumann is a 73 year old old male PCP: Manuel Beebe MD [facility]ing [facility] [id number] My final recommendations will be communicated back to the requesting physician by way of shared medical record or letter via US mail. Chief Complaint: HPI: Steph Baumann is a 73 year old male here to discuss bone health. PMHx significant for Prostate cancer diagnosed 2 years- radiation and now on bicalutamide. Denied any hx of bone metastasis In addition, he also has a hx of Parkinson's disease, OA, Stroke, benign brain tumor found on CT scan, s/p brain surgery right , Afib s/p cardioversion, ICD placed, CAD with STEMI in past, PAD, cardiac cirrhosis, CKD stage 3, GERD, type 2 DM. He lives at [facility]. He is accompanied today by his POA/friend. Calcium: supplements 300 mg daily, dietary calcium: cheese and yogurt, 2 servings a day Vitamin D: no Dietary and supplemental calcium intakes are likely suboptimal Prior use of antiresporptives or other medications: none Physical activity consists of : does cubii, 3 to 4 times a day, 20 mins at a time. He will likely start physical therapy soon Fall prevention wheelchair Prior fragility fractures: right hip, mini mann replacement- at the time of radiation he fell and fractures hip- >1.5 years ago Height loss: no Kidney stones: yes, kidney stones noted on CT scan for hip fractures Weight change no Bone Mineral Density done: Yes, History of steroid use: no History of malabsorption: no Exercise: (type AND duration) History of certain medication use: not concerning to cause bone demineralization Use of lithium or thiazides: no History of hyperparathyroidism: no Cancer history: prostate cancer History of radiation exposure: yes Family history of osteoporosis, calcium, or bone disorders: not done Family history of hip fractures: no Other endocrine diseases: mom had thyroid cancer Dental appt- was seen at [facility]- teeth cleaning scheduled on 28 Dec 2022, going to [place] to get crowns done in January 2023 PAST MEDICAL HISTORY Diagnosis Date Adult failure to thrive Atherosclerotic heart disease of [place] coronary artery without angina pectoris Atrial fibrillation [...] situ 10/[address] Gonzáles [facility] current use of insulin (HCC) Metabolic encephalopathy Muscle wasting and atrophy, not elsewhere classified, unspecified site ALBINO (obstructive sleep apnea) BiPAP, [facility] 07/09/2014. Consistently compliant 04/14/2017. TO Other malaise Other symbolic dysfunctions Parkinson's disease Personal history of transient ischemic attack (TIA), and cerebral infarction without residual deficits Seizure disorder (HCC) Type 2 diabetes mellitus with diabetic chronic kidney disease (HCC) Type II or unspecified type diabetes mellitus without mention of complication, uncontrolled Unspecified atrial flutter (HCC) Unspecified cirrhosis of liver (HCC) Unspecified protein-calorie malnutrition (HCC) PAST SURGICAL HISTORY Procedure Laterality Date COLONOSCOPY FLX DX W/COLLJ SPEC WHEN PFRMD 02/06/14 Colonoscopy ESOPHAGOGASTRODUODENOSCOPY TRANSORAL DIAGNOSTIC 02/06/14 EGD PAST SURGICAL HISTORY OF 2011 Resection of brain tumor. Dr. Tanner. Not able to afford MRIs yearly. PAST SURGICAL HISTORY OF 10/2019 Placement of BiVICD Current Outpatient Medications on File Prior to Visit Medication Sig acetaZOLAMIDE (DIAMOX) 250 mg tablet Take 250 mg by mouth two times a day. apixaban (ELIQUIS) 5 mg tab(s) Take 1 tablet by mouth twice daily. albuterol HFA (VENTOLIN HFA) 90 mcg/actuation inhaler Inhale 2 Puffs as instructe (more content not included)... [facility] 11-01-2023 Note HNO ID: [id number] Author: Lex Posada RN Service: ? Author [...] Posada RN November 01, 2023 1:34 PM [facility] 10-26-2023 Note HNO ID: [id number] Author: Travon Longoria RT(R) Service: ? Author [...] RT Kita(R) October 26, 2023 10:31 AM [facility] 10-25-2023 Note HNO ID: [id number] Author: Lex Posada RN Service: ? Author [...] Posada RN October 25, 2023 1:43 PM [facility] 10-25-2023 Note Patient Outreach (AM BCMG) VICENTE BAUMANNK Godwin ([id number]) 1950 M Date Time Provider Department 10/25/23 LEX POSADA [facility] [place] During your visit today, we recorded the [...] Unknown Date Reviewed: 09/28/2023 Reviewed by: Lashon Hagan, RN - Fully Assessed Reason for Visit: [...] mouth once daily. (more content not included)... [facility] 09-30-2023 Miscellaneous Notes Latonia at [facility] notified and took a verbal order. Thania Santos LPN ----- Message from Geronimo Swift DO sent at 09/29/2023 7:33 PM EST ----- Vit D is low. He is under [place] care at [facility]. Please give order to start Vit D3 2000 units PO daily if not already on vit D supplement. If he already is then increase to 5000 units daily. Geronimo Swift DO documented in this encounter [facility] 09-28-2023 Note HNO ID: [id number] Author: Geronimo Swift, DO Service: ? Author Type: Physician Type: [...] biopsy on 11/12/2021. All 4 cores demonstrated [place] grade 7, 2 of the cores were [...] for cirrhosis. Here today with POA from [place] (daughter's friend). Visits him every 2 weeks. Diagnosed with Parkinsons in April. Requires wheelchair. Was independent prior to that. Living at [facility]. Recently started having dysuria deep in when starts urinating. No gross hematuria. Started on antibiotic at [place]. Only pain is right hip and low back if sits too long. Right hip pain has been evaluated by his orthopedic several times as well as the low back pain. No clear etiology. PAST MEDICAL HISTORY Diagnosis Date Adult failure to thrive Atherosclerotic heart disease of [place] coronary artery without angina pectoris Atrial fibrillation [...] situ 10/[address] 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 [facility] 09-23-2023 Note HNO ID: [id number] Author: Lex Posada RN Service: ? Author Type: Registered Nurse Type: Progress Notes Filed: 09/23/2023 2:44 PM Note Text: CDM Telephonic Outreach Provider Action/FYI CDM: CHF, Pulm Htn, Asthma Called Pt, unable to leave?a message to verify symptom status and needs. CHF Matt Education sent, Goals completed Contacted for: Goals/Falls/ADL Update Contact made with patient: No, unable to leave message. Will reattempt call eLx Posada RN September 23, 2023 2:38 PM [facility] 09-23-2023 History of Present illness Narrative CDM Telephonic Outreach Provider Action/FYI CDM: CHF, Pulm Htn, Asthma Called Pt, unable to leave?a message to verify symptom status and needs. CHF Matt Education sent, Goals completed Contacted for: Goals/Falls/ADL Update Contact made with patient: No, unable to leave message. Will reattempt call Lex Posada RN September 23, 2023 2:38 PM documented in this encounter [facility] 09-23-2023 Note Patient Outreach (AM BCMG) STEPH BAUMANN ([id number]) 1950 M Date Time Provider Department 09/23/23 LEX POSADASeda During your visit today, we recorded the following information about you: Lex Posada RN 09/23/2023 2:44 PM Signed CDM Telephonic Outreach Provider Action/FYI CDM: CHF, Pulm Htn, Asthma Called Pt, unable to leave?a message to verify symptom status and needs. CHF Matt Education sent, Goals completed Contacted for: Goals/Falls/ADL [...] Visit Diagnosis:Chronic diastolic CHF (congestive heart failure) ([facility]) [I50.32] Order(s):PT ED HEART AND VASCULAR [[id number]] Order #: [id number]: 1 Prescriptions as of 09/23/2023 - acetaZOLAMIDE [...] embolism with cer (more content not included)... [facility] 09-21-2023 Note HNO ID: [id number] Author: Lillian John RN Service: ? Author Type: Registered Nurse Type: Progress Notes Filed: 09/21/2023 1:23 PM Note Text: Steph Baumann was reviewed for potential clinical trial enrollment on [facility]GU010 by the [facility] on 09/21/23. Per initial review, patient has disease type Prostate and appears to be not eligible based on Treatment . Requesting republican notified. iLllian John RN [facility] 09-21-2023 Note HNO ID: [id number] Author: Lillian John RN Service: ? Author Type: Registered Nurse Type: Progress Notes Filed: 09/21/2023 1:23 PM Note Text: Steph Baumann was reviewed for potential clinical trial enrollment on [facility] #GU008 by the [facility] on 09/21/23. Per initial review, patient has disease type Prostate and appears to be not eligible based on Treatment . Requesting republican notified. Lillian John RN [facility] 09-21-2023 History of Present illness Narrative Steph Baumann was reviewed for potential clinical trial enrollment on [facility] #GU010 by the [facility] on 09/21/23. Per initial review, patient has disease type Prostate and appears to be not eligible based on Treatment . Requesting republican notified. Lillian John RN Steph Baumann was reviewed for potential clinical trial enrollment on [facility] #GU008 by the [facility] on 09/21/23. Per initial review, patient has disease type Prostate and appears to be not eligible based on Treatment . Requesting republican notified. Lillian John RN documented in this encounter [facility] 09-15-2023 Miscellaneous Notes Called [facility]. Verified name and date of of patient. Informed- verbalizes understanding. States she speaks with patient daily and will let him know. María Jacobs LPN PSA is good undetectable, still needs consult for medical oncology for ADT therapy which it look like he has set. KLEVER Zheng MT, PA-C documented in this encounter [facility] 09-14-2023 Miscellaneous Notes Scheduled with Andra HERNÁNDEZ Schedule appt. With Dr. Jeniffer Barajas LPN Procedure: CONSULT TO ONCOLOGY Status: Needs Scheduling Requested appt date: Authorizing: River Fiore [facility]-C [facility] Referral: [id number] (Authorized) Expires: 09/12/2024 Priority: Routine Diagnosis: Prostate cancer (HCC) [C61] Pt is requesting Dr. Swift. Please review and advise Michelle documented in this encounter [facility] 09-13-2023 Note HNO ID: [id number] Author: River Fiore PA-C Service: ? Author Type: Physician Bulk Mail Clerk Type: Progress Notes Filed: 09/13/2023 6:41 PM Note Text: [facility] ESTABLISHED PATIENT CLINIC NOTE [...] with Dr. Saravia on 11/13/2021 Report from [facility]: Prostate about 50 g, left lobe is hard and the right lobe is firm, symmetrical. This demonstrated Matthew score 4+3 adenocarcinoma involving 100% of 1 [...] And now not able to follow with [facility] due to insurance according to patient [...] twice daily. b (more content not included)... [facility] 09-13-2023 Note HNO ID: [id number] Author: María Jacobs LPN Service: ? Author Type: ? Type: Progress Notes Filed: 09/13/2023 6:41 PM Note Text: Verified name and date of . CC Post Void Residual HPI: Steph Baumann is a 73 year old male. The patient is here now for an appointment with KLEVER Zheng, PAIGE, PA-KAYA. Procedure: Explained procedure to patient and verbalizes understanding. Performed a PVR. Patient urinated on way to appointment and unable to urinate at this time. Results of scan: 88 mL The patient tolerated the procedure well. Plan: Appointment with River. [facility] 09-05-2023 Note HNO ID: [id number] Author: Lex Posada RN Service: ? Author [...] Posada RN September 05, 2023 6:39 PM [facility] 09-05-2023 History of Present illness Narrative CDM [...] 2023 10:26 AM documented in this encounter [facility] 09-02-2023 Note Patient Outreach (AM BC) STEPH BAUMANN ([id number]) 1950 M Date Time Provider Department 09/02/23 LEX POSADA AMBG During your visit today, we recorded the following information about you: Lex Posada RN 09/05/2023 6:39 PM Signed CDM Telephonic Outreach Provider Action/ CDM: CHF, Asthma Called Pt, unable to [...] [Z01.818] 12/31/2013 03/08/2016 (more content not included)... [facility] 09-02-2023 Note HNO ID: [id number] Author: Lex Posada, RN Service: ? Author Type: Registered Nurse Type: Progress Notes Filed: 09/05/2023 6:39 PM Note Text: CDM Telephonic Outreach Provider Action/FYI CDM: CHF, Asthma Called Pt, unable to leave?a message to verify symptom status and needs Contacted for: Routine Telephonic Outreach Contact made with patient: No, unable to leave message. Will reattempt call Lex Posada RN September 02, 2023 10:26 AM [facility] 09-01-2023 Note Patient Outreach (JORI TNAV) GIOVANNY BAUMANNERICHortensia Connelly ([id number]) 1950 M Date Time Provider Department 09/01/23 [...] 06/23/2023 Influenza Vaccine(1) due on 07/08/2023 Covid-19 Vaccine( - 2022- season) due on 07/08/2023 Diabetic Foot Exam [...] specified forms of (more content not included)... [facility] 09-01-2023 Note HNO ID: [id number] Author: Radha Aleman MA Service: ? Author Type: Fountain Server Type: Progress Notes Filed: 09/01/2023 11:42 AM Note Text: POPULATION HEALTH NAVIGATION OUTREACH Action/ - Heart [...] Aleman MA September 01, 2023 8:30 AM [facility] 08-16-2023 Note HNO ID: [id number] Author: Lex Posada RN Service: ? Author [...] Posada RN August 16, 2023 4:02 PM [facility] 08-15-2023 Note HNO ID: [id number] Author: Lex Posada RN Service: ? Author [...] Posada RN August 15, 2023 12:13 PM [facility] 08-15-2023 Note Patient Outreach (AM BCMG) STEPH BAUMANN ([id number]) 1950 [place] Date Time Provider [facility] your visit today, we recorded the [...] 12/31/2013 03/08/2016 Ra (more content not included)... [facility] 08-12-2023 Miscellaneous Notes Luz Elena had faxed orders. Netta Espinal RN August 12, 2023 3:00 PM Netta, Has this been taken care of? Thanks Home Loredo MD called again saying that [facility] did not receive US order, labs. New fax number giving [phone] Will fax over items Luz Elena Snell Air Chief Marshal maya documented in this encounter [facility] 07-21-2023 Note HNO ID: [id number] Author: Lex Posada RN Service: ? Author [...] Posada RN July 21, 2023 4:42 PM [facility] 07-21-2023 History of Present illness Narrative CDM [...] 2023 10:34 AM documented in this encounter [facility] 07-20-2023 Note Patient Outreach (AM BC) STEPH BAUMANN ([id number]) 1950 [place] Date Time Provider Department 07/20/23 LEX POSADA [facility] [place] During your visit today, we recorded the [...] [Z01.818] 12/31/2013 03/08/2016 (more content not included)... [facility] 07-20-2023 Note HNO ID: [id number] Author: Lex Posada RN Service: ? Author [...] Posada RN July 20, 2023 10:34 AM [facility] 06-28-2023 Note HNO ID: [id number] Author: Lex Posada RN Service: ? Author [...] Posada RN June 28, 2023 11:16 AM [facility] 06-28-2023 History of Present illness Narrative CDM [...] 2023 12:19 PM documented in this encounter [facility] 06-27-2023 Note HNO ID: [id number] Author: Lex Posada RN Service: ? Author [...] Posada RN June 27, 2023 12:19 PM [facility] 06-27-2023 Note Patient Outreach (AM BC) STEPH BAUMANN ([id number]) 1950 [place] Date Time Provider Department 06/27/23 LEX POSADA AMBG During your visit today, we recorded the [...] 12/31/2013 03/08/2016 Ra (more content not included)... [facility] 05-24-2023 Note HNO ID: [id number] Author: Lex Posada RN Service: ? Author Type: Registered Nurse Type: Progress Notes Filed: 05/24/2023 11:09 AM Note Text: CDM Telephonic Outreach Provider Action/FYI CDM: CHF, Asthma Left a message, Instructed to call PCP with any symptom or condition changes Contacted for: Routine Telephonic Outreach Contact made with patient: No, left message. Lex Posada RN May 24, 2023 11:07 AM [facility] 05-23-2023 Note HNO ID: [id number] Author: Lex Posada RN Service: ? Author [...] Posada RN May 23, 2023 1:24 PM [facility] 05-23-2023 Note Patient Outreach (AM BCMG) STEPH BAUMANN ([id number]) 1950 Date Time Provider Department 05/23/23 LEX [...] and other nonspecific (more content not included)... [facility] 04-22-2023 Miscellaneous Notes 04-22....Patient is currently in rehab,Cancelled his appointment on 05-03, will call to r/s later any questions call Atif Ferraro [phone] [place] documented in this encounter [facility] 04-21-2023 Note HNO ID: [id number] Author: Lex Posada RN Service: ? Author [...] Posada RN April 21, 2023 7:05 PM [facility] 04-21-2023 History of Present illness Narrative CDM [...] 2023 2:37 PM documented in this encounter [facility] 04-20-2023 Note HNO ID: [id number] Author: Lex Posada RN Service: ? Author [...] Posada RN April 20, 2023 2:37 PM [facility] 04-20-2023 Note Patient Outreach (AM BCMG) STEPH BAUMANN ([id number]) 1950 Date Time Provider Department 04/20/23 LEX [...] Rash and ot (more content not included)... [facility] 04-13-2023 Miscellaneous Notes Spoke with Atif and [...] to advise. Patient was seen by Olga VAN yesterday due to hypotension and other concerns. [...] to help care for him. Pt has [facility] PT and OT ordered but has not [...] office for review. Please call Atif at [phone]. documented in this encounter [facility] 04-12-2023 Note HNO ID: [id number] Author: Olga Styles APRN.RESEARCH TEST ENGINE OPERATOR Service: ? Author Type: Nurse Specialist Type: [...] he is feeling well overall. Following with [facility] re: CAD s/p STEMI, diastolic [...] Noted he was unable to travel to [place] or [place] so he was instead seen at [facility] by Dr. Abreu. Diagnosed with prostate cancer, treatment with radiation planned; has begun the process for this; procedure earlier today at [facility]. Notes he had procedure yesterday at [facility] for prostate cancer. Without report of [...] dose of insulin. He was admitted to [facility] on April 10, 2023 through April 12, 2023 for adult failure to thrive. He presented with report of getting weaker and more debilitated at home and also feeling dehydrated. EMS was called for transport and thought he was confused initially. CT of the brain was completed and showed no acute pathology. PT and OT was (more content not included)... [facility] 04-12-2023 Miscellaneous Notes Patient seen today Spoke with Jasmyne, an nurse with [employer] and gave her providers message and verbalized understanding. Attempted to contact patient but no answer. Left message for patient to call office and ask to speak to a nurse about scheduling a hospital f/u with REHAN Villavicencio CNP next week. OK for HHC. Schedule hospital follow up appointment. Jasmyne, an nurse with [employer] , calls for VO for OT and PT. Pt is supposed to be dc'd from [facility] on 04/12. Call Jasmyne with dr's VO. Reina Mcgee LPN documented in this encounter [facility] 04-12-2023 Instructions Olga Styles APRN.CNS - 04/12/2023 2:45 PM EDT Drink sufficient [...] or concerning symptoms documented in this encounter [facility] 04-12-2023 History of Present illness Narrative SUBJECTIVE: [...] he is feeling well overall. Following with [facility] re: CAD s/p STEMI, diastolic [...] Noted he was unable to travel to [place] or [place] so he was instead seen at [facility] by Dr. Abreu. Diagnosed with prostate cancer, treatment with radiation planned; has begun the process for this; procedure earlier today at [facility]. Notes he had procedure yesterday at [facility] for prostate cancer. Without report of [...] dose of insulin. He was admitted to [facility] on April 10, 2023 through April 12, [...] [address] Horton neurologist [facility]. He has a neurology appointment tomorrow, states may adjust medications at that visit. Home health care:[facility], to come out tomorrow Assistance at [...] Metformin Diarrhea Even low dose caused diarrhea [place] [Hydrocodone-* Intolerance Hallucination Medications traMADol (ULTRAM) 50 [...] - 4.00 k/uL 0.60 (L) 0.79 (L) [place]% % 12.7 6.7 Abs [place] <0.87 k/uL 0.72 0.60 Eosin% % 4.1 [...] R62.7 He was seen in observation at [facility]. Advised long-term facility at discharge however declined and discharged to home with home health care. Presents in clinic unable to stand without assistance and difficulty staying awake. He is hypotensive. 4. Type 2 diabetes mellitus with other specified complication, with long-term current use of insulin ([facility]) - ICD9: 250.80, V58.67, ICD10: E11.69, Z79.4 Has had improved control of late. 5. Paroxysmal atrial fibrillation (HCC) - ICD9: 427.31, ICD10: I48.0 Followed by [facility]. On oral anticoagulation. 6. Chronic diastolic CHF (congestive heart failure) ([facility]) - ICD9: 428.32, 428.0, ICD10: I50.32 Followed by [facility], recent up titration of carvedilol from 3.125 twice daily to 6.25 twice daily. Appears he is intolerant of this, will reduce dose back down to 3.125 twice daily 7. Parkinson's disease (HCC) - ICD9: 332.0, ICD10: G20 Being followed [...] 1 -2 week follow up Olga Styles APRN.RESEARCH TEST ENGINE OPERATOR Endorse SO not leave unattended until feeling improved. Olga Styles APRN.RESEARCH TEST ENGINE OPERATOR Medical Decision Making: Problems: Moderate: New problem with uncertain prognosis and Acute illness with systemic symptoms Risk: Moderate: Drug management Medical Decision Making Level: 4 - Moderate documented in this encounter [facility] 04-11-2023 Miscellaneous Notes Message left for Atif Ferraro () to call to update concerning the letter being in Medical records to be picked up. Maribell Salinas LPN Printed letter--see if adequate Steph Baumann is calling Manuel Beebe MD today to request Patient Request (Patient is going to the zoo 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 )please advise [phone]. Patient has been identified by name and birthdate. Duration of symptoms: N/A Person calling: caregiver: atif freraro Call patient at: on cell [phone] (home) [phone] (cell) Was an appointment scheduled: No Closing statement: Results or non-symptom based questions: Thank you for calling [facility], your call will be returned within the next business day. Mckenna Deluna Pss documented in this encounter [facility] 04-11-2023 Miscellaneous Notes Faxed current med list to [facility] med/surg per request. Fax # [phone]. Confirmation received. documented in this encounter [facility] 03-24-2023 Note HNO ID: [id number] Author: Lex Posada RN Service: ? Author [...] Posada RN March 24, 2023 4:03 PM [facility] 03-24-2023 Note Patient Outreach (AM BC) STEPH BAUMANN ([id number]) 1950 Roxanne Date Time Provider Department 03/24/23 LEX POSADA [...] to 3.125mg in packets from [facility] - baclofen (LIORESAL) 20 mg tablet [...] anticoagulation [Z79.01] 02/24/2017 Pulmonary hypertension, secondary (HCC) [[id number]*03/10/2017 Typical atrial flutter (HCC) [I48.3] 04/13/2017 ALBINO (obstructive sleep apnea) [G47.33] H/O: stroke [Z86.73] 11/07/2010 H/O brain (more content not included)... [facility] 03-23-2023 Note HNO ID: [id number] Author: Manuel Beebe MD Service: ? Author Type: Physician Type: Progress Notes Filed: 04/24/2023 11:41 PM Note Text: This note was created using NoteWriter. Subjective Steph Baumann is a 72 year [...] HENT: Head: Nor (more content not included)... [facility] 03-23-2023 History of Present illness Narrative This note was created using [employer]. Subjective Steph Baumann is a 72 year [...] and regular exercise and adequate sleep. Manuel Beebe MD documented in this encounter [facility] 03-15-2023 Miscellaneous Notes Called patient and left [...] for results. Agata documented in this encounter [facility] 03-15-2023 Miscellaneous Notes Results reviewed. See phone encounter dated 03/09/23. Netta Espinal RN March 15, 2023 11:08 AM 03/11/23 Patient calling for lab results, If you can call his caregiver, Atif, Agata documented in this encounter [facility] 03-09-2023 Note HNO ID: [id number] Author: Home Loredo MD Service: ? Author [...] - Patient to discuss starting carvedilol with industrial electrician journeyman (ideally 6.25mg PO BID). Patient will also [...] this year (will get with PCP after Thanksgi) - PNA Vaccine: Up to date. - [...] after CMP is available Home Loredo MD [facility] 03-09-2023 History of Present illness Narrative Follow [...] - Patient to discuss starting carvedilol with industrial electrician journeyman (ideally 6.25mg PO BID). Patient will also [...] Home Loredo MD documented in this encounter [facility] 02-25-2023 Note HNO ID: [id number] Author: Lex Posada RN Service: ? Author [...] Posada RN February 25, 2023 1:37 PM [facility] 02-25-2023 Note Patient Outreach (AM BC) STEPH BAUMANN ([id number]) 1950 M Date Time Provider Department 02/25/23 LEX POSADAG During your visit today, we recorded the following information about you: Lex Posada RN 02/25/2023 1:38 PM Signed CDM Telephonic Outreach Provider Action/MARCIAI CDM: CHF, Asthma Called Pt, unable to [...] anticoagulation [Z79.01] 02/24/2017 Pulmonary hypertension, secondary (HCC) [[id number]*03/10/2017 Typical atrial flutter (HCC) [I48.3] 04/13/2017 ALBINO (obstructive sleep apnea) [G47.33] H/O: stroke [Z86.73] 11/07/2010 H/O brain tumor [Z87.898] Controlled type 2 diabetes mellitus without com*10/07/2017 Stasis edema of both lower extremities [I87.303]04/23/2018 Chronic diastolic CHF (congestive heart failure*08/25/2018 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 [facility] 02-25-2023 History of Present illness Narrative CDM Telephonic Outreach Provider Action/FYI CDM: CHF, Asthma Called Pt, unable to leave a message to verify symptom status and needs. Contacted for: Routine Telephonic Outreach Contact made with patient: No, unable to leave message. Will reattempt call Lex Posada RN February 25, 2023 1:37 PM documented in this encounter [facility] 02-09-2023 Note HNO ID: [id number] Author: Lex Posada RN Service: ? Author Type: Registered Nurse Type: Progress Notes Filed: 02/09/2023 5:31 PM Note Text: CECILIO COLBERT TELEPHONIC OUTREACH Provider Action/FYI: CDM: [...] Posada RN February 09, 2023 5:30 PM [facility] 02-09-2023 History of Present illness Narrative CECILIO COLBERT TELEPHONIC OUTREACH Provider Action/FYI: CDM: [...] Outreach - End Outreach Lxe Posada RN February 09, 2023 5:30 PM documented in this encounter [facility] 02-09-2023 Note Patient Outreach (AM BC) STEPH BAUMANN ([id number]) 1950 Date Time Provider Department 02/09/23 LEX POSADA During your visit today, we recorded the following information about you: Lex Posada RN 02/09/2023 5:31 PM Signed CECILIO COLBERT TELEPHONIC OUTREACH Provider [...] Outreach - End Outreach Lxe Posada RN February 09, 2023 5:30 PM [...] anticoagulation [Z79.01] 02/24/2017 Pulmonary hypertension, secondary (HCC) [[id number]*03/10/2017 Typical atrial flutter (HCC) [I48.3] 04/13/2017 ALBINO (obstructive sleep apnea) [G47.33] H/O: stroke [Z86.73] 11/07/2010 H/O brain tumor [Z87.898] Controlled type 2 diabetes mellitus without com*10/07/2017 Stasis edema of both lower extremities [I87.303]04/23/2018 Chronic diastolic CHF (congestive heart shailesh (more content not included)... [facility] 02-02-2023 Note HNO ID: [id number] Author: Lex Posada RN Service: ? Author Type: Registered Nurse Type: Progress Notes Filed: 02/02/2023 5:21 PM Note Text: INSIGHT CASIMIRO TELEPHONIC OUTREACH Provider Action/FYI: CDM: CHF, Asthma [...] Posada RN February 02, 2023 5:19 PM [facility] 02-02-2023 History of Present illness Narrative INSIGHT CASIMIRO TELEPHONIC OUTREACH Provider Action/FYI: CDM: CHF, Asthma [...] 2023 5:19 PM documented in this encounter [facility] 02-02-2023 Note Patient Outreach (AM [facility]) STEPH BAUMANN ([id number]) 1950 M Date Time Provider Department 02/02/23 LEX POSADA During your visit today, we recorded the following information about you: Lex Posada RN 02/02/2023 5:21 PM Signed INSIGHT CDM TELEPHONIC OUTREACH Provider [...] anticoagulation [Z79.01] 02/24/2017 Pulmonary hypertension, secondary (HCC) [[id number]*03/10/2017 Typical atrial flutter (HCC) [I48.3] 04/13/2017 ALBINO (obstructive sleep apnea) [G47.33] H/O: stroke [Z86.73] 11/07/2010 H/O brain tumor [Z87.898] Controlled type 2 diabetes mellitus without com*10/07/2017 Stasis edema of both lower extremities [I87.303]04/23/2018 Chronic diastolic CHF (congestive heart failur (more content not included)... [facility] 01-04-2023 Note HNO ID: [id number] Author: Lex Posada RN Service: ? Author Type: Registered Nurse Type: Progress Notes Filed: 02/02/2023 5:12 PM Note Text: CECILIO COLBERT TELEPHONIC OUTREACH Provider Action/FYI: CDM: CHF/ Asthma [...] Posada RN January 04, 2023 5:08 PM [facility] 01-04-2023 History of Present illness Narrative CECILIO KIRKPATRICK TELEPHONIC OUTREACH Provider Action/FYI: CDM: CHF/ Asthma [...] 2023 5:08 PM documented in this encounter [facility] 01-04-2023 Note Patient Outreach (AM [facility]) STEPH BAUMANN ([id number]) 1950 Date Time Provider Department 01/04/23 LEX POSADA During your visit today, we recorded the following information about you: Lex Posada RN 02/02/2023 5:12 PM Addendum CECILIO COLBERT TELEPHONIC OUTREACH Provider Action/FYI: CDM: CHF/ Asthma [...] anticoagulation [Z79.01] 02/24/2017 Pulmonary hypertension, secondary (HCC) [[id number]*03/10/2017 Typical atrial flutter (HCC) [I48.3] 04/13/2017 ALBINO (obstructive sleep apnea) [G47.33] H/O: stroke [Z86.73] 11/07/2010 H/O brain tumor [Z87.898] Controlled type 2 diabetes mellitus without com*10/07/2017 Stasis edema of both lower extremities [I87.303]04/23/2018 Chronic diastolic CHF (congestive heart f (more content not included)... [facility] 01-03-2023 Note HNO ID: [id number] Author: Lex Posada RN Service: ? Author Type: Registered Nurse Type: Progress Notes Filed: 02/02/2023 5:18 PM Note Text: CECILIO [facility] TELEPHONIC OUTREACH Provider Action/FYI: CDM: CHF, [...] Posada RN January 03, 2023 10:10 AM [facility] 01-03-2023 History of Present illness Narrative INSIGHT [facility] TELEPHONIC OUTREACH Provider Action/FYI: CDM: CHF, [...] RN January 03, 2023 10:10 AM CECILIO COLBERT TELEPHONIC OUTREACH Provider Action/FYI: CDM: [...] 2022 12:26 PM documented in this encounter [facility] 12-30-2022 Note HNO ID: [id number] Author: Lex Posada RN Service: ? Author Type: Registered Nurse Type: Progress Notes Filed: 02/02/2023 5:18 PM Note Text: CECILIO COLBERT TELEPHONIC OUTREACH Provider Action/FYI: CDM: [...] Posada RN December 30, 2022 12:26 PM [facility] 12-30-2022 Note Patient Outreach (AM [facility]) STEPH BAUMANN ([id number]) 1950 Date Time Provider Department 12/30/22 LEX POSADA During your visit today, we recorded the following information about you: Lex Posada RN 02/02/2023 5:18 PM Addendum CECILIO [facility] TELEPHONIC OUTREACH Provider Action/FYI: CDM: CHF, [...] Lex Posada RN 02/02/2023 5:18 PM Addendum INSIGHT CDM TELEPHONIC OUTREACH Provider [...] CVA (cerebrovascular acci (more content not included)... [facility] 12-22-2022 Miscellaneous Notes Okayed Patient has been [...] Mckenna Deluna Pss documented in this encounter [facility] 11-24-2022 History of Present illness Narrative INSIGHT CDM TELEPHONIC OUTREACH Provider Action/FYI: CDM: CHF 2nd [...] Posada RN November 24, 2022 9:25 AM CECILIO COLBERT TELEPHONIC OUTREACH Provider Action/FYI: CDM: CHF Called [...] 2022 10:20 AM documented in this encounter [facility] 10-19-2022 History of Present illness Narrative CECILIO [facility] TELEPHONIC OUTREACH Provider Action/FYI: CDM: CHF [...] Posada RN October 19, 2022 5:51 PM MAZIN COLBERT TELEPHONIC OUTREACH Provider Action/FYI: CDM: CHF / Asthma 10/18/22 Left a message to verify symptom status and needs Contact made with patient: No - Left message Hello my name is Lex Posada RN your Title Insurance Sales Representative from the [facility] I am calling today for your bi-weekly [...] 2022 9:58 AM documented in this encounter [facility] 10-04-2022 Miscellaneous Notes Received diabetic supply orders from [facility] [employer] . Confirmed with patient, he does not not use this company and buys supplies out of pocket. Disregard future requests. documented in this encounter [facility] 09-15-2022 History of Present illness Narrative INSIGHT CDM TELEPHONIC OUTREACH Provider Action/FYI: Called Pt left a message to verify CHF/ Asthma or other symptoms and needs. Contact made with patient: No - Left message Rosaregis my name is Lex Posada RN your Title Insurance Sales Representative from the [facility] I am calling today for your bi-weekly [...] 2022 1:24 PM documented in this encounter [facility] 09-02-2022 Instructions Margareth Rivas MD - 09/02/2022 12:11 PM EDT Thank you for coming to your visit with Dr. Loredo. Below are some of the things we discussed: Please discuss with your industrial electrician journeyman the followin) Starting carvedilol 2 times per [...] in 6 months. documented in this encounter [facility] 09-02-2022 History of Present illness Narrative HEPATOLOGY [...] - Patient to discuss starting carvedilol with industrial electrician journeyman (ideally 6.25mg PO BID). Patient will also [...] Home Loredo MD documented in this encounter [facility] 08-13-2022 History of Present illness Narrative INSIGHT CDM TELEPHONIC OUTREACH Provider Action/FYI: Call to Pt, left a message to verify CHF/ Asthma and other symptom status and needs. Contact made with patient: No - Left message Rosalo my name is Lex Posada RN your Title Insurance Sales Representative from the [facility] I am calling today for your bi-weekly [...] 2022 3:13 PM documented in this encounter [facility] 07-29-2022 Miscellaneous Notes Note and letter faxed to [facility] and patient notified. However patient states that [...] power operated chair. Please send this to [facility] at fax # [phone] and office number is [phone] Electronically signed by [facility] at 07/20/2022 10:59 AM EDT Called [facility] this is correct. They just need a prescription for this and then taxes will be voided. Do not know how to enter this to come up this way. Atif Ferraro called back with the phone and fax for [facility]: Atif can be reached at [phone]. Atif Ferraro called in and was reporting that Pt is still having mobility issues from when he fractured his hip in February. She was looking at the [employer] Booker Mobility Scooter at [facility]. She reports if a provider writes a letter for the Pt then they can get the tax paid for. She states the scooter is $2300, but the Pt is scared of falling and with this one he would be able to use it in his apartment. Please call her back and advise. documented in this encounter [facility] 07-20-2022 Miscellaneous Notes Patient unable to make the 40 minute appointment next week on 07/28/2022. Patient added to the wait list and per caregiver Dr. Beebe said to let her know if an appointment is way out for the reschedule and she will help get patient back in to see her. Tuesdays and Wednesdays the first week of any month provider will be able to transport patient prefer afternoons late after 3 pm Please call Atif, his caregiver at [phone] documented in this encounter [facility] 06-24-2022 History of Present illness Narrative INSIGHT CDM TELEPHONIC OUTREACH Provider Action/FYI: Call to Pt, left a message to verify CHF/ Asthma symptoms, and post Rehab status. Contact made with patient: No - Left message Scout my name is Lex Posada RN your Title Insurance Sales Representative from the [facility] I am calling today for your bi-weekly check in. I am sorry I missed your call. I will reach out to you again tomorrow. (if the third call I will reach out to you again next week) Enter next patient outreach date for the following business day using the Track Pt Outreach. End outreach. Lex Posada RN June 24, 2022 11:38 AM INSIGHT CDM TELEPHONIC OUTREACH Provider Action/FYI: Call [...] 2022 1:29 PM documented in this encounter [facility] 06-15-2022 History of Present illness Narrative [facility] [address] [facility] [address] [facility] [phone] Stephhortensia Baumann is a 72 y.o. male being [...] allergies, and problem list items with Steph Godwin Baumann during this visit. Review of Systems [...] Munira Dickerson MD documented in this encounter [facility] 06-15-2022 Miscellaneous Notes LM notifying Lexx Okay ondinart Lexx from [facility] calling recert for PT, plan of care 2 visits weekly for 3 weeks working on fall prevention. Patient was recently in [facility] ER for high blood sugars. documented in this encounter [facility] 2022 History of Present illness Narrative INSIGHT [facility] TELEPHONIC OUTREACH Provider Action/FYI: Call to Pt related to CHF/ Asthma, unable to leave a message. Contact made with patient: No - Unable to leave message Entered next patient outreach date for the following business day, if third call please enter next outreach date for one week in the Track Pt. Outreach - End Outreach Lex Posada RN 2022 10:03 AM INSIGHT CD TELEPHONIC OUTREACH Provider Action/FYI: Call to Pt, left a message related to CHF/ Asthma symptoms or needs. Contact made with patient: No - Left message Hello my name is Lex Posada RN your Title Insurance Sales Representative from the [facility] I am calling today for your bi-weekly [...] 2022 11:27 AM documented in this encounter [facility] 05-20-2022 History of Present illness Narrative [facility]IO [facility] TELEPHONIC OUTREACH Provider Action/FYI: Call to Pt left a message to verify CHF/ Asthma symptoms or needs. Contact made with patient: No - Left message Scout my name is Lex Posada RN your Title Insurance Sales Representative from the [facility] I am calling today for your bi-weekly check in. I am sorry I missed your call. I will reach out to you again tomorrow. (if the third call I will reach out to you again next week) Enter next patient outreach date for the following business day using the Track Pt Outreach. End outreach. Lex Posada RN May 20, 2022 1:55 PM [facility]EC[facility]IO [facility] TELEPHONIC OUTREACH Provider Action/FYI: Call to Pt left a message to verify CHF/ Asthma symptoms or needs. Contact made with patient: No - Left message Scout my name is Lex Posada RN your Title Insurance Sales Representative from the [facility] I am calling today for your bi-weekly [...] 2022 9:09 AM documented in this encounter [facility] 05-19-2022 Miscellaneous Notes Okayed Patient calling back, he and his POA confirmed they have called [facility] directly. Patient has been identified by name and [...] a message that he needs to call [facility] and re-establish his account with them since his POA put the account on hold while he was at a rehab facillity/hospital. Patient aware RX will be sent to pharmacy. No need to notify patient. Megan Rosales Pss documented in this encounter [facility] 05-18-2022 History of Present illness Narrative [facility] [address]) [facility] [address] [facility] [phone] Steph Baumann is a 71 y.o. [...] requiring operative repair, right, closed, initial encounter ([facility]) 2. Low back pain without sciatica, unspecified back pain laterality, unspecified chronicity Return in about 4 weeks (around 06/15/2022). Munira Dickerson MD documented in this encounter [facility] 05-13-2022 Miscellaneous Notes Friend Atif notified that handipcap mika is ready for spanish moss picker in medical records and she verbalized understanding ok Friend (Atif) calls to request a prescription for a handicap placard d/t patient receiving a letter from [facility] stating he needs an updated order. Pended per request. Atif will spanish moss picker in medical records when ready and requests calling her at [phone]. Cyndee Hill RN documented in this encounter [facility] 05-04-2022 Miscellaneous Notes Sent request to Medical Records at [facility] to send over Medication list from [facility]. Having them send to fax # [phone]. Atif returns call after speaking with patient. [...] meds was given when in TCU? Atif Matthew calls on behalf of patient. Patient was seen in [facility] ER for chest pain. Patient was worked up in the ER. Per Atif ER thinks it is more anxiety than cardiac. While on TCU patient was prescribed something for anxiety. Atif asking if provider can send in a prescription to help with anxiety to [facility] pharmacy? Please review and advise, Samina Watt RN documented in this encounter [facility] 04-21-2022 History of Present illness Narrative INSIGHT [...] like to speak with a social work steam gigger to help give you support for any [...] you up for automated weekly questionnaires through [employer]. This is an easy way for us [...] 2022 1:16 PM documented in this encounter [facility] 04-16-2022 History of Present illness Narrative Primary Care Pharmacy Visit REASON FOR CONSULT: DM GOALS: A1c < 8% CONSULTING PROVIDER: Olga Styles APRN.RESEARCH TEST ENGINE OPERATOR Date of Consult: 01/08/22 Steph Baumann is a 71 year old male presenting for follow up visit by telephone. Patient consents to pharmacy collaborative practice agreement. Last seen by Olga Styles APRN.RESEARCH TEST ENGINE OPERATOR on 01/12/22. At last RESEARCH TEST ENGINE OPERATOR appt, patient was encouraged to follow up with [facility]. At that visit provider also noted that spironolactone was stopped, and bumex dose decreased due to hypotension, was encouraged to recheck BMP. At PharmD visit on 02/02/22, blood sugar testing supplies were ordered, and clarified medication discrepancies with cardiology. INTERIM HISTORY: Since last visit, patient had hip fracture and was following at [facility]. Discharged home on 04/14 Patient reports [...] not present. Adherence: denies missed doses. Pharmacy: [facility] Diabetes supplies: [employer] System: ACTIVE PROBLEM LIST Brain Tumor (Hcc) [...] Metformin Diarrhea Even low dose caused diarrhea [place] [Hydrocodone-* Intolerance Hallucination Current Outpatient Medications Medication [...] TG 93 03/26/2021 The ASCVD Risk score (Valdostagianna COWART Jr., et al., 2013) failed to calculate for the following reasons: The patient has a prior UT or stroke diagnosis Albumin/Creat Ratio (mg/g) Date Value 11/06/2019 24 PHARMACOTHERAPY ASSESSMENT/PLAN: 1. Controlled type 2 diabetes mellitus without complication, with long-term current use of insulin ([facility]) - ICD9: 250.00, V58.67, ICD10: E11.9, Z79.4 [...] Lara PharmD, BCACP Primary Care Clinical Pharmacist [facility] The majority of the pharmacy visit (> 50%) was spent counseling and/or coordinating care for the patient. [Telephonic] time was 16 minutes. documented in this encounter [facility] 04-08-2022 Miscellaneous Notes Order called back to [facility]. Will follow Jasmyne from [facility] reports pt will be discharging from TCU at [facility] on 04/14/22 following a right hip fx. Will need nursing & PT, will pcp follow? Kayleigh Hummel LPN documented in this encounter [facility] 04-06-2022 History of Present illness Narrative PRIMARY CARE COORDINATION QUICK NOTE Provider Action/FYI Routed update to Dr. Beebe Sphortensia with Pt he anticipates to be discharged to home from [facility] on 04/14/22, Instructed to schedule follow up Appt with Dr. Beebe/ Olga Styles, he verbalized understanding and appreciation for the follow-up. Patient identified by name and date . Lex Posada RN April 06, 2022 4:15 PM documented in this encounter [facility] 04-01-2022 Miscellaneous Notes Noted, will follow up with patient at scheduled visit time. Jana Lara, RachD, BCACP Primary Care Clinical Pharmacist [facility] Atif returned your call. [facility] and doing physical therapy. Tentative discharge date is 04/14/22 and a follow up appointment has been scheduled for 04/16. If there are any issues or concerns, please call Atif at [phone]. Samina Smith Patient cancelled last pharmacy visit and is due for diabetes follow up to review blood sugars. Called and spoke with patient to offer pharmacy visit. Patient states he relies on caregiver Atif to make appts. Called and Left voicemail for Atif asking to return call to [phone] to schedule pharmacy visit. Rach KothariD, BCACP Primary Care Clinical Pharmacist [facility] documented in this encounter [facility] 03-26-2022 History of Present illness Narrative noted, monitor for discharge to SNF/home. Obtain records when available. [facility] TELEPH[facility]IC [facility]REACH Provider Action/FYI: Routed update to Dr. Beebe- No Action required Spk with Pt he reported fall with fracture of Right Hip, he noted surgical repair, is currently at [facility], undetermined Length of Stay. Contact [...] RN March 26, 2022 2:33 PM [facility] TELE[facility]REACH Provider Action/FYI: Call to Pt to verify symptom status and needs. Contact made with patient: No - Left message Hello my name is Lex Posada RN your Title Insurance Sales Representative from the [facility] I am calling today for your bi-weekly [...] 2022 4:41 PM documented in this encounter [facility] 03-23-2022 History of Present illness Narrative [facility] [address]) [facility] [address] [facility] [id number] Steph Baumann is a 71 y.o. male [...] No periprosthetic fractures. Intact right hip replacement. Hole 19 Workstation ID: [id number] 1. Hip fracture requiring operative repair, right, closed, initial encounter ([facility]) 2. Low back pain without sciatica, unspecified back pain laterality, unspecified chronicity Return for post mri. Munira Dickerson MD documented in this encounter [facility] 03-16-2022 History of Present illness Narrative [facility] TE[facility]RE[facility] Provider Action/FYI: Call to Pt left a message to verify CHF/ Asthma symptom status and needs Contact made with patient: No - Left message Hello my name is Lex Posada RN your Title Insurance Sales Representative from the [facility] I am calling today for your bi-weekly check in. I am sorry I missed your call. I will reach out to you again tomorrow. (if the third call I will reach out to you again next week) Enter next patient outreach date for the following business day using the Track Pt Outreach. End outreach. Lex Posada RN March 16, 2022 4:30 PM [facility] TELEPH[facility]IC [facility]REACH Provider Action/FYI: Call to Pt left a message to verify CHF/ Asthma symptom status and needs Contact made with patient: No - Left message Scout my name is Lex Posada RN your Title Insurance Sales Representative from the [facility] I am calling today for your bi-weekly [...] 2022 1:51 PM documented in this encounter [facility] 03-03-2022 History of Present illness Narrative [facility] Provider Action/FYI: Call to Pt left a message to verify CHF/ Asthma symptoms and needs. Contact made with patient: No - Left message Hello my name is Lex Posada RN your Title Insurance Sales Representative from the [facility] I am calling today for your bi-weekly [...] 2022 11:16 AM documented in this encounter [facility] 02-24-2022 History of Present illness Narrative WILBER FROM [facility] CALLED STATING THERE WAS SOME ISSUES [...] FOR 4 WEEKS. documented in this encounter [facility] 02-22-2022 History of Present illness Narrative [facility]LEPH[facility]IC OUTRE[facility] Provider Action/FYI: Call to Pt left a message to verify CHF / Asthma or other symptoms. Contact made with patient: No - Left message Rosalo my name is Lex Posada RN your Title Insurance Sales Representative from the [facility] I am calling today for your bi-weekly [...] 2022 9:13 AM documented in this encounter [facility] 02-12-2022 Miscellaneous Notes Appt cancelled per patient request. Jana Lara, PharmD, BCACP Primary Care Clinical Pharmacist [facility] Ok, monitor for discharge and reschedule as appropriate. PEDRO Samuel for pt called to let you know pt fell on 02-09-22 and fractured his hip. Was at [facility] then transferred to [facility]. He is still there as of 02-12-22 and not sure what is going to be done next. He has an phone apt scheduled with you Jana on 02-16-22 and they are cancelling this for now. If you want you can reach Atif Ferraro at [phone]. Sending to PCP as FYI. Jazmin Tejeda LPN documented in this encounter [facility] 02-05-2022 History of Present illness Narrative [facility] Provider Action/FYI: Call to Pt left a message to verify CHF/ Asthma symptom status. Contact made with patient: No - Left message Hello my name is Lex Posada RN your Title Insurance Sales Representative from the [facility] I am calling today for your bi-weekly check in. I am sorry I missed your call. I will reach out to you again tomorrow. (if the third call I will reach out to you again next week) Enter next patient outreach date for the following business day using the Track Pt Outreach. End outreach. Lex Posada RN February 05, 2022 4:26 PM [facility] TELEPH[facility]RE[facility] Provider Action/FYI: Call to Pt left a message to verify CHF/ Asthma symptom status. Contact made with patient: No - Left message Hello my name is Lex Posada RN your Title Insurance Sales Representative from the [facility] I am calling today for your bi-weekly [...] 2022 8:35 AM documented in this encounter [facility] 02-03-2022 Miscellaneous Notes Called and spoke with pharmacy as pt reports not able to spanish moss picker new meter/test strips. Was only given lancets [...] LARA, PharmD, BCACP Primary Care Clinical Pharmacist [facility] documented in this encounter [facility] 02-02-2022 Miscellaneous Notes Khoi is asking for directions on glucose meter. Dot Escoto LPN Khoi with [facility] calls to report the directions on [...] Reina Mcgee LPN documented in this encounter [facility] 02-02-2022 History of Present illness Narrative Primary Care Pharmacy Visit REASON FOR CONSULT: DM GOALS: A1c < 8% CONSULTING PROVIDER: Olga Styles APRN.CNS Date of Consult: 01/08/22 Steph Baumann is [...] a pharmacist. Last seen by Olga Styles APRN.RESEARCH TEST ENGINE OPERATOR on 01/12/22. At last RESEARCH TEST ENGINE OPERATOR appt, patient was encouraged to follow up [...] not present. Adherence: denies missed doses. Pharmacy: [facility] Diabetes supplies: [facility] System: ACTIVE PROBLEM LIST Brain Tumor (Hcc) [...] Metformin Diarrhea Even low dose caused diarrhea [place] [Hydrocodone-* Intolerance Hallucination Medication List Medication Directions [...] TG 93 03/26/2021 The ASCVD Risk score (Onel COWART Jr., et al., 2013) failed to calculate for the following reasons: The patient has a prior UT or stroke diagnosis Albumin/Creat Ratio (mg/g) Date Value 11/06/2019 24 PHARMACOTHERAPY ASSESSMENT/PLAN: 1. Controlled type 2 diabetes mellitus without complication, with long-term current use of insulin (HCC) - ICD9: 250.00, V58.67, ICD10: E11.9, Z79.4 [...] medications. Will contact external cardiology provider - [facility] for clarification. See telephone encounter for medication clarification Follow up: Patient is scheduled to see PCP on 03/29/22. Patient to follow up with PharmD on 02/16/22. Patient verbalized understanding of instructions. Jana Lara, Butch, BCACP Primary Care Clinical Pharmacist [facility] The majority of the pharmacy visit (> 50%) was spent counseling and/or coordinating care for the patient. [Face to Face] time was 57 minutes. documented in this encounter [facility] 05-16-2021 Miscellaneous Notes Below noted. Grateful for the FYI from Maye. Per our scales, he had lost weight from March of this year to February. Stable within [...] (158 lb) 09/28/2019 82.6 kg (182 lb) [facility]- reports patient's weight is 147 pounds today. She believes patient may have lost 30 pounds since January. Our weight checks: 6-21: 151 # 04-03-21: 148 # 02-13-21: 152 # 3-21: 173 # 05-28-: 171 # documented in this encounter [facility] documented as of this encounter (statuses as of 10/04/2022) [facility] History of Past illness Narrative* Problem Noted [...] of this encounter (statuses as of 10/11/2022) [facility] Past [facility] Narrative* Problem Noted [...] of this encounter (statuses as of 10/19/2022) [facility] Narrative* Problem Noted [...] of this encounter (statuses as of 11/24/2022) [facility] Narrative* Problem Noted [...] of this encounter (statuses as of 12/23/2022) [facility] Narrative* Problem Noted [...] of this encounter (statuses as of 01/03/2023) [facility] Narrative* Problem Noted [...] of this encounter (statuses as of 01/05/2023) [facility] Narrative* Problem Noted [...] of this encounter (statuses as of 02/02/2023) [facility] Narrative* Problem Noted [...] of this encounter (statuses as of 02/10/2023) [facility] Narrative* Problem Noted [...] of this encounter (statuses as of 02/25/2023) [facility] Narrative* Problem Noted [...] of this encounter (statuses as of 03/10/2023) [facility] Narrative* Problem Noted [...] of this encounter (statuses as of 03/10/2023) [facility] Narrative* Problem Noted [...] of this encounter (statuses as of 03/15/2023) [facility] Narrative* Problem Noted [...] of this encounter (statuses as of 04/11/2023) [facility] N[facility]ative* Problem Noted [...] of this encounter (statuses as of 04/12/2023) [facility] Narrative* Problem Noted [...] of this encounter (statuses as of 04/13/2023) [facility] Narrative* Problem Noted [...] of this encounter (statuses as of 04/13/2023) [facility] N[facility]ative* Problem Noted [...] of this encounter (statuses as of 04/13/2023) [facility] Narrative* Problem Noted [...] of this encounter (statuses as of 04/22/2023) [facility] N[facility]* Problem Noted [...] of this encounter (statuses as of 04/25/2023) [facility]* Problem Noted [...] of this encounter (statuses as of 06/28/2023) [facility]* Problem Noted [...] of this encounter (statuses as of 07/22/2023) [facility]* Problem Noted [...] of this encounter (statuses as of 08/13/2023) [facility]* Problem Noted [...] of this encounter (statuses as of 09/06/2023) [facility] N[facility]* Problem Noted [...] of this encounter (statuses as of 09/15/2023) [facility] N[facility]* Problem Noted [...] of this encounter (statuses as of 09/15/2023) [facility] Narrative* Problem Noted [...] of this encounter (statuses as of 09/21/2023) [facility] Narrative* Problem Noted [...] of this encounter (statuses as of 09/23/2023) [facility] N[facility]* Problem Noted [...] of this encounter (statuses as of 09/30/2023) [facility] N[facility]ative* Problem Noted [...] as of this encounter (statuses as of 12/13/2023) [facility]* Problem Noted [...] as of this encounter (statuses as of 12/20/2023) [facility]* Problem Noted [...] as of this encounter (statuses as of 12/22/2023) [facility] N[facility]ative* Problem Noted [...] as of this encounter (statuses as of 12/22/2023) [facility] N[facility]* Problem Noted [...] as of this encounter (statuses as of 12/27/2023) [facility] N[facility]* Problem Noted [...] of this encounter (statuses as of 02/02/2022) [facility]* Problem Noted [...] of this encounter (statuses as of 02/03/2022) [facility]* Problem Noted [...] of this encounter (statuses as of 02/05/2022) [facility]* Problem Noted Date Resolved Date Obesity (BMI 30.0-34.9) 02/24/2017 08/14/20 Class 1 [...] of this encounter (statuses as of 02/09/2022) [facility]* Problem Noted [...] of this encounter (statuses as of 02/15/2022) [facility]* Problem Noted [...] of this encounter (statuses as of 02/24/2022) [facility]* Problem Noted [...] of this encounter (statuses as of 02/26/2022) [facility]* Problem Noted [...] of this encounter (statuses as of 03/05/2022) [facility]* Problem Noted [...] of this encounter (statuses as of 03/16/2022) [facility]* Problem Noted [...] of this encounter (statuses as of 03/26/2022) [facility]* Problem Noted [...] of this encounter (statuses as of 04/01/2022) [facility]* Problem Noted [...] of this encounter (statuses as of 04/06/2022) [facility]* Problem Noted [...] of this encounter (statuses as of 04/08/2022) [facility]* Problem Noted [...] of this encounter (statuses as of 04/16/2022) [facility]* Problem Noted [...] of this encounter (statuses as of 04/23/2022) [facility]* Problem Noted [...] of this encounter (statuses as of 05/04/2022) [facility]* Problem Noted [...] of this encounter (statuses as of 05/13/2022) [facility]* Problem Noted [...] of this encounter (statuses as of 05/19/2022) [facility]* Problem Noted [...] of this encounter (statuses as of 05/20/2022) [facility]* Problem Noted [...] of this encounter (statuses as of 2022) [facility]* Problem Noted [...] of this encounter (statuses as of 06/15/2022) [facility]* Problem Noted [...] of this encounter (statuses as of 06/24/2022) [facility]* Problem Noted [...] of this encounter (statuses as of 07/22/2022) [facility]* Problem Noted [...] of this encounter (statuses as of 07/29/2022) [facility]* Problem Noted [...] of this encounter (statuses as of 08/13/2022) [facility]* Problem Noted [...] of this encounter (statuses as of 09/02/2022) [facility]* Problem Noted [...] of this encounter (statuses as of 09/03/2022) [facility]* Problem Noted [...] of this encounter (statuses as of 09/06/2022) [facility]* Problem Noted Date Resolved Date Obesity (BMI 30.0-34.9) 02/24/2017 08/14/20 Class 1 [...] of this encounter (statuses as of 09/15/2022) [facility]* Problem Noted Date Resolved Date Obesity (BMI 30.0-34.9) 02/24/2017 08/14/20 Class 1 [...] of this encounter (statuses as of 09/17/2022) [facility]* Problem Noted [...] of this encounter (statuses as of 09/17/2022) [facility] note* Diagnosis Controlled type 2 diabetes mellitus without complication, with long-term current use of insulin (HCC) documented in this encounter [facility] note* Diagnosis Controlled type 2 diabetes mellitus without complication, with long-term current use of insulin (HCC)- Primary documented in this encounter [facility] note* Diagnosis Controlled type 2 diabetes mellitus without complication, with long-term current use of insulin (HCC)- Primary Medication management Encounter for long-term (current) use of other medications documented in this encounter [facility] note* Diagnosis Hip fracture requiring operative repair, right, closed, initial encounter ([facility])- Primary Status post hip hemiarthroplasty documented in this encounter [facility] note* Diagnosis Pain- Primary Generalized pain documented in this encounter [facility] note* Diagnosis Pain- Primary Generalized pain documented in this encounter [facility] note* Diagnosis Hip fracture requiring operative repair, right, closed, initial encounter ([facility])- Primary Low back pain without sciatica, unspecified back pain laterality, unspecified chronicity documented in this encounter [facility] note* Diagnosis Low back pain without sciatica, unspecified back pain laterality, unspecified chronicity- Primary documented in this encounter [facility] note* Diagnosis Controlled type 2 diabetes mellitus without complication, with long-term current use of insulin (HCC)- Primary documented in this encounter [facility] note* Diagnosis Brain tumor (HCC)- Primary Neoplasm of unspecified nature of brain Moderate persistent asthma without complication Unspecified asthma Chronic diastolic CHF (congestive heart failure) (HCC) Chronic diastolic heart failure documented in this encounter [facility] note* Diagnosis Hip fracture requiring operative repair, right, closed, initial encounter ([facility])- Primary Low back pain without sciatica, unspecified back pain laterality, unspecified chronicity documented in this encounter [facility] note* Diagnosis Controlled type 2 diabetes mellitus without complication, with long-term current use of insulin (HCC) Essential hypertension, benign documented in this encounter [facility] note* Diagnosis Hip fracture requiring operative repair, right, closed, initial encounter ([facility])- Primary Status post hip hemiarthroplasty documented in this encounter [facility] note* Diagnosis Status post hip hemiarthroplasty- Primary documented in this encounter [facility] note* Diagnosis Status post hip hemiarthroplasty- Primary documented in this encounter [facility] note* Diagnosis Liver disease- Primary Unspecified disorder of liver documented in this encounter [facility] note* Diagnosis Liver disease Unspecified disorder of liver documented in this encounter [facility] note* Diagnosis Tobacco abuse Tobacco use disorder documented in this encounter [facility] note* Diagnosis Rash Rash and other nonspecific skin eruption documented in this encounter [facility] note* Diagnosis Liver disease- Primary Unspecified disorder of liver Other cirrhosis of liver (HCC) documented in this encounter [facility] note* Diagnosis Liver disease Unspecified disorder of liver documented in this encounter [facility] note* Diagnosis Hypotension due to drugs- Primary Other iatrogenic hypotension Nausea Nausea alone Adult failure to thrive Type 2 diabetes mellitus with other specified complication, with long-term current use of insulin (HCC) Paroxysmal atrial fibrillation (HCC) Atrial fibrillation Chronic diastolic CHF (congestive heart failure) (HCC) Chronic diastolic heart failure Parkinson's disease (HCC) Paralysis agitans documented in this encounter [facility] note* Diagnosis Controlled type 2 diabetes mellitus without complication, with long-term current use of insulin (HCC)- Primary Essential hypertension, benign 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 Moderate persistent asthma without complication Unspecified asthma Cirrhosis of liver with ascites, unspecified hepatic cirrhosis type (HCC) documented in this encounter [facility] note* Diagnosis Chronic diastolic CHF (congestive heart failure) (HCC)- Primary Chronic diastolic heart failure documented in this encounter [facility] note* Diagnosis Prostate cancer (HCC)- Primary Malignant neoplasm of prostate 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) Malignant neoplasm of prostate documented in this encounter [facility] note* Diagnosis 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 Personal history of contact with and (suspected) exposure to potentially hazardous body fluids documented in this encounter [facility] note* Diagnosis Prostate cancer (HCC)- Primary Malignant neoplasm of prostate documented in this encounter [facility] for referral (narrative)* Diagnostic Procedure Only (Routine) - Authorized Specialty Diagnoses / Procedures Referred By Suyapa montoya Referred To Contact US IMAGING Diagnoses Liver disease Procedures US ABD RT UPPER QUADRANT US ABDOMINAL REAL TIME W/IMAGE LIMITED Deborah Main [address] [phone] Us Imaging Referral ID Status Reason Start Date Expiration Date Visits Requested Visits Authorized [id number] Authorized Auto-Generat ed Referral 2 10/02/2023 4 4 [facility] for referral (narrative)* Diagnostic Procedure Only (Routine) - Authorized Specialty Diagnoses / Procedures Referred By Contac t Referred To Contact US IMAGING Diagnoses Liver disease Procedures US ABD RT UPPER QUADRANT US ABDOMINAL REAL TIME W/IMAGE LIMITED Deborah Main [address] [phone] Us Imaging Referral ID Status Reason Start Date Expiration Date Visits Requested Visits Authorized [id number] Authorized Auto-Generat ed Referral 10/02/2023 4 4 [facility] for referral (narrative)* Diagnostic Procedure Only (Routine) - Authorized Specialty Diagnoses / Procedures Referred By Contac t Referred To Contact US IMAGING Diagnoses Liver disease Procedures US ABD RIGHT UPPER QUADRANT US ABDOMINAL REAL TIME W/IMAGE LIMITED Home Loredo MD [address] [place] [id number] Us Imaging Referral ID Status Reason Start Date Expiration Date Visits Requested Visits Authorized [id number] Authorized Auto-Generat ed Referral 09/12/2023 04/07/2024 1 1 [facility] for referral (narrative)* Diagnostic Procedure Only (Routine) - Authorized Specialty Diagnoses / Procedures Referred By Contac t Referred To Contact US IMAGING Diagnoses Liver disease Procedures US ABD RT UPPER QUADRANT US ABDOMINAL REAL TIME W/IMAGE LIMITED Deborah Main [address] [phone] Us Imaging Referral ID Status Reason Start Date Expiration Date Visits Requested Visits Authorized [id number] Authorized Auto-Generat ed Ref[facility]/02[facility]23 [facility] Diagnostic Procedure Only (Routine) - Authorized Specialty Diagnoses / Procedures Referred By Suyapa montoya Referred To Contact US IMAGING Diagnoses Liver disease Procedures US ABD RT UPPER QUADRANT US ABDOMINAL REAL TIME W/IMAGE LIMITED Deborah Main A[address] [address] Us Imaging Referral ID Status Reason Start Date Expiration Date Visits Requested Visits Authorized [id number] Authorized Auto-Generat ed Referral 10/02/2023 4 4 [facility] Advance Directives No Advanced Directives Records FoundDocuments on File Type Date Recorded Patient [employer] anation Advance Directives and Livin g Will 02/11/2022 2:47 PM Advance Directives and Livin g Will 02/11/2022 3:13 PM Power of Rail Car Loader 02/11/2022 3:13 PM Latest Code Status on File Code Status Date Activated Date Inactivated Comments Full Code 02/10/2022 3:42 PM 02/19/2022 12:43 PM Documents on File Type Date Recorded Patient [employer] anation Advance Directives and Livin g Will 02/19/2022 7:10 PM Advance Directives and Livin g Will 02/19/2022 7:11 PM Power of Rail Car Loader 02/19/2022 7:10 PM Advance Directives and Livin g Will 02/11/2022 2:47 PM Advance Directives and Livin g Will 02/11/2022 3:13 PM Power of Rail Car Loader 02/11/2022 3:13 PM Documents on File Type Date Recorded Patient [employer] anation Advance Directives and Livin g Will 02/19/2022 7:10 PM Advance Directives and Livin g Will 02/19/2022 7:11 PM Power of Rail Car Loader 02/19/2022 7:10 PM Advance Directives and Livin g Will 02/11/2022 3:13 PM Power of Rail Car Loader 02/11/2022 3:13 PM Documents on File Type Date Recorded Patient [employer] anation Advance Directives and Livin g Will 02/19/2022 7:10 PM Advance Directives and Livin g Will 02/19/2022 7:11 PM Power of Rail Car Loader 02/19/2022 7:10 PM Advance Directives and Livin g Will 02/11/2022 3:13 PM Power of Rail Car Loader 02/11/2022 3:13 PM Latest Code Status on File Code Status Date Activated Date Inactivated Comments Full Code 02/10/2022 3:42 PM 02/19/2022 12:43 PM Reason for Referral Specialty Diagnoses / Procedures Referred By Contac t Referred To Contact Radiology Diagnoses Low back pain without sciatica, unspecified back pain laterality, unspecified chronicity Procedures MR Lumbar Spine Without Contrast Munira Dickerson MD [address] [place] [address] Referral ID Status Reason Start Date Expiration Date V isits Requested Visits Authorized [id number] Authorized 03/30/2022 03/30/2023 1 1 Summary Purpose [...] or prosecute any alcohol or drug abuse patient.[facility] the event this information is protected by the Federal Confidentiality of Alcohol and Drug Abuse Patient Records regulations: The Federal rules restrict any use of the information to criminally investigate or prosecute any alcohol or drug abuse patient.[facility] the event this information is protected by the Federal Confidentiality of Alcohol and Drug Abuse Patient Records regulations: The Federal rules restrict any use of the information to criminally investigate or prosecute any alcohol or drug abuse patient.[facility] the event this information is protected by the Federal Confidentiality of Alcohol and Drug Abuse Patient Records regulations: The Federal rules restrict any use of the information to criminally investigate or prosecute any alcohol or drug abuse patient.[facility] the event this information is protected by the Federal Confidentiality of Alcohol and Drug Abuse Patient Records regulations: The Federal rules restrict any use of the information to criminally investigate or prosecute any alcohol or drug abuse patient.[facility] the event this information is protected by the Federal Confidentiality of Alcohol and Drug Abuse Patient Records regulations: The Federal rules restrict any use of the information to criminally investigate or prosecute any alcohol or drug abuse patient.[facility] the event this information is protected by the Federal Confidentiality of Alcohol and Drug Abuse Patient Records regulations: The Federal rules restrict any use of the information to criminally investigate or prosecute any alcohol or drug abuse patient.[facility] the event this information is protected by the Federal Confidentiality of Alcohol and Drug Abuse Patient Records regulations: The Federal rules restrict any use of the information to criminally investigate or prosecute any alcohol or drug abuse patient.[facility] the event this information is protected by the Federal Confidentiality of Alcohol and Drug Abuse Patient Records regulations: The Federal rules restrict any use of the information to criminally investigate or prosecute any alcohol or drug abuse patient.[facility] the event this information is protected by the Federal Confidentiality of Alcohol and Drug Abuse Patient Records regulations: The Federal rules restrict any use of the information to criminally investigate or prosecute any alcohol or drug abuse patient.[facility] the event this information is protected by the Federal Confidentiality of Alcohol and Drug Abuse Patient Records regulations: The Federal rules restrict any use of the information to criminally investigate or prosecute any alcohol or drug abuse patient.[facility] the event this information is protected by the Federal Confidentiality of Alcohol and Drug Abuse Patient Records regulations: The Federal rules restrict any use of the information to criminally investigate or prosecute any alcohol or drug abuse patient.[facility] the event this information is protected by the Federal Confidentiality of Alcohol and Drug Abuse Patient Records regulations: The Federal rules restrict any use of the information to criminally investigate or prosecute any alcohol or drug abuse patient.[facility] the event this information is protected by the Federal Confidentiality of Alcohol and Drug Abuse Patient Records regulations: The Federal rules restrict any use of the information to criminally investigate or prosecute any alcohol or drug abuse patient.[facility]In the event this information is protected by the Federal Confidentiality of Alcohol and Drug Abuse Patient Records regulations: The Federal rules restrict any use of the information to criminally investigate or prosecute any alcohol or drug abuse patient.[facility] the event this information is protected by the Federal Confidentiality of Alcohol and Drug Abuse Patient Records regulations: The Federal rules restrict any use of the information to criminally investigate or prosecute any alcohol or drug abuse patient.[facility] the event this information is protected by the Federal Confidentiality of Alcohol and Drug Abuse Patient Records regulations: The Federal rules restrict any use of the information to criminally investigate or prosecute any alcohol or drug abuse patient.[facility] CenterIn the event this information is protected by the Federal Confidentiality of Alcohol and Drug Abuse Patient Records regulations: The Federal rules restrict any use of the information to criminally investigate or prosecute any alcohol or drug abuse patient.[facility] CenterIn the event this information is protected by the Federal Confidentiality of Alcohol and Drug Abuse Patient Records regulations: The Federal rules restrict any use of the information to criminally investigate or prosecute any alcohol or drug abuse patient.[facility]In the event this information is protected by the Federal Confidentiality of Alcohol and Drug Abuse Patient Records regulations: The Federal rules restrict any use of the information to criminally investigate or prosecute any alcohol or drug abuse patient.[facility] the event this information is protected by the Federal Confidentiality of Alcohol and Drug Abuse Patient Records regulations: The Federal rules restrict any use of the information to criminally investigate or prosecute any alcohol or drug abuse patient.[facility] the event this information is protected by the Federal Confidentiality of Alcohol and Drug Abuse Patient Records regulations: The Federal rules restrict any use of the information to criminally investigate or prosecute any alcohol or drug abuse patient.[facility] the event this information is protected by the Federal Confidentiality of Alcohol and Drug Abuse Patient Records regulations: The Federal rules restrict any use of the information to criminally investigate or prosecute any alcohol or drug abuse patient.[facility] the event this information is protected by the Federal Confidentiality of Alcohol and Drug Abuse Patient Records regulations: The Federal rules restrict any use of the information to criminally investigate or prosecute any alcohol or drug abuse patient.[facility] the event this information is protected by the Federal Confidentiality of Alcohol and Drug Abuse Patient Records regulations: The Federal rules restrict any use of the information to criminally investigate or prosecute any alcohol or drug abuse patient.[facility]In the event this information is protected by the Federal Confidentiality of Alcohol and Drug Abuse Patient Records regulations: The Federal rules restrict any use of the information to criminally investigate or prosecute any alcohol or drug abuse patient.[facility] the event this information is protected by the Federal Confidentiality of Alcohol and Drug Abuse Patient Records regulations: The Federal rules restrict any use of the information to criminally investigate or prosecute any alcohol or drug abuse patient.[facility] the event this information is protected by the Federal Confidentiality of Alcohol and Drug Abuse Patient Records regulations: The Federal rules restrict any use of the information to criminally investigate or prosecute any alcohol or drug abuse patient.[facility]In the event this information is protected by the Federal Confidentiality of Alcohol and Drug Abuse Patient Records regulations: The Federal rules restrict any use of the information to criminally investigate or prosecute any alcohol or drug abuse patient.[facility]In the event this information is protected by the Federal Confidentiality of Alcohol and Drug Abuse Patient Records regulations: The Federal rules restrict any use of the information to criminally investigate or prosecute any alcohol or drug abuse patient.[facility]In the event this information is protected by the Federal Confidentiality of Alcohol and Drug Abuse Patient Records regulations: The Federal rules restrict any use of the information to criminally investigate or prosecute any alcohol or drug abuse patient.[facility]In the event this information is protected by the Federal Confidentiality of Alcohol and Drug Abuse Patient Records regulations: The Federal rules restrict any use of the information to criminally investigate or prosecute any alcohol or drug abuse patient.[facility]In the event this information is protected by the Federal Confidentiality of Alcohol and Drug Abuse Patient Records regulations: The Federal rules restrict any use of the information to criminally investigate or prosecute any alcohol or drug abuse patient.[facility]In the event this information is protected by the Federal Confidentiality of Alcohol and Drug Abuse Patient Records regulations: The Federal rules restrict any use of the information to criminally investigate or prosecute any alcohol or drug abuse patient.[facility]In the event this information is protected by the Federal Confidentiality of Alcohol and Drug Abuse Patient Records regulations: The Federal rules restrict any use of the information to criminally investigate or prosecute any alcohol or drug abuse patient.[facility]In the event this information is protected by the Federal Confidentiality of Alcohol and Drug Abuse Patient Records regulations: The Federal rules restrict any use of the information to criminally investigate or prosecute any alcohol or drug abuse patient.[facility]In the event this information is protected by the Federal Confidentiality of Alcohol and Drug Abuse Patient Records regulations: The Federal rules restrict any use of the information to criminally investigate or prosecute any alcohol or drug abuse patient.[facility]In the event this information is protected by the Federal Confidentiality of Alcohol and Drug Abuse Patient Records regulations: The Federal rules restrict any use of the information to criminally investigate or prosecute any alcohol or drug abuse patient.[facility]In the event this information is protected by the Federal Confidentiality of Alcohol and Drug Abuse Patient Records regulations: The Federal rules restrict any use of the information to criminally investigate or prosecute any alcohol or drug abuse patient.[facility]In the event this information is protected by the Federal Confidentiality of Alcohol and Drug Abuse Patient Records regulations: The Federal rules restrict any use of the information to criminally investigate or prosecute any alcohol or drug abuse patient.[facility]In the event this information is protected by the Federal Confidentiality of Alcohol and Drug Abuse Patient Records regulations: The Federal rules restrict any use of the information to criminally investigate or prosecute any alcohol or drug abuse patient.[facility]In the event this information is protected by the Federal Confidentiality of Alcohol and Drug Abuse Patient Records regulations: The Federal rules restrict any use of the information to criminally investigate or prosecute any alcohol or drug abuse patient.[facility]In the event this information is protected by the Federal Confidentiality of Alcohol and Drug Abuse Patient Records regulations: The Federal rules restrict any use of the information to criminally investigate or prosecute any alcohol or drug abuse patient.[facility]In the event this information is protected by the Federal Confidentiality of Alcohol and Drug Abuse Patient Records regulations: The Federal rules restrict any use of the information to criminally investigate or prosecute any alcohol or drug abuse patient.[facility]In the event this information is protected by the Federal Confidentiality of Alcohol and Drug Abuse Patient Records regulations: The Federal rules restrict any use of the information to criminally investigate or prosecute any alcohol or drug abuse patient.[facility]In the event this information is protected by the Federal Confidentiality of Alcohol and Drug Abuse Patient Records regulations: The Federal rules restrict any use of the information to criminally investigate or prosecute any alcohol or drug abuse patient.[facility]In the event this information is protected by the Federal Confidentiality of Alcohol and Drug Abuse Patient Records regulations: The Federal rules restrict any use of the information to criminally investigate or prosecute any alcohol or drug abuse patient.[facility]In the event this information is protected by the Federal Confidentiality of Alcohol and Drug Abuse Patient Records regulations: The Federal rules restrict any use of the information to criminally investigate or prosecute any alcohol or drug abuse patient.[facility]In the event this information is protected by the Federal Confidentiality of Alcohol and Drug Abuse Patient Records regulations: The Federal rules restrict any use of the information to criminally investigate or prosecute any alcohol or drug abuse patient.[facility]In the event this information is protected by the Federal Confidentiality of Alcohol and Drug Abuse Patient Records regulations: The Federal rules restrict any use of the information to criminally investigate or prosecute any alcohol or drug abuse patient.[facility]In the event this information is protected by the Federal Confidentiality of Alcohol and Drug Abuse Patient Records regulations: The Federal rules restrict any use of the information to criminally investigate or prosecute any alcohol or drug abuse patient.[facility]In the event this information is protected by the Federal Confidentiality of Alcohol and Drug Abuse Patient Records regulations: The Federal rules restrict any use of the information to criminally investigate or prosecute any alcohol or drug abuse patient.[facility]In the event this information is protected by the Federal Confidentiality of Alcohol and Drug Abuse Patient Records regulations: The Federal rules restrict any use of the information to criminally investigate or prosecute any alcohol or drug abuse patient.[facility]In the event this information is protected by the Federal Confidentiality of Alcohol and Drug Abuse Patient Records regulations: The Federal rules restrict any use of the information to criminally investigate or prosecute any alcohol or drug abuse patient.[facility]In the event this information is protected by the Federal Confidentiality of Alcohol and Drug Abuse Patient Records regulations: The Federal rules restrict any use of the information to criminally investigate or prosecute any alcohol or drug abuse patient.[facility]In the event this information is protected by the Federal Confidentiality of Alcohol and Drug Abuse Patient Records regulations: The Federal rules restrict any use of the information to criminally investigate or prosecute any alcohol or drug abuse patient.[facility]In the event this information is protected by the Federal Confidentiality of Alcohol and Drug Abuse Patient Records regulations: The Federal rules restrict any use of the information to criminally investigate or prosecute any alcohol or drug abuse patient.[facility]In the event this information is protected by the Federal Confidentiality of Alcohol and Drug Abuse Patient Records regulations: The Federal rules restrict any use of the information to criminally investigate or prosecute any alcohol or drug abuse patient.[facility]In the event this information is protected by the Federal Confidentiality of Alcohol and Drug Abuse Patient Records regulations: The Federal rules restrict any use of the information to criminally investigate or prosecute any alcohol or drug abuse patient.[facility]In the event this information is protected by the Federal Confidentiality of Alcohol and Drug Abuse Patient Records regulations: The Federal rules restrict any use of the information to criminally investigate or prosecute any alcohol or drug abuse patient.[facility] the event this information is protected by the Federal Confidentiality of Alcohol and Drug Abuse Patient Records regulations: The Federal rules restrict any use of the information to criminally investigate or prosecute any alcohol or drug abuse patient.[facility]In the event this information is protected by the Federal Confidentiality of Alcohol and Drug Abuse Patient Records regulations: The Federal rules restrict any use of the information to criminally investigate or prosecute any alcohol or drug abuse patient.[facility]In the event this information is protected by the Federal Confidentiality of Alcohol and Drug Abuse Patient Records regulations: The Federal rules restrict any use of the information to criminally investigate or prosecute any alcohol or drug abuse patient.[facility]In the event this information is protected by the Federal Confidentiality of Alcohol and Drug Abuse Patient Records regulations: The Federal rules restrict any use of the information to criminally investigate or prosecute any alcohol or drug abuse patient.[facility]In the event this information is protected by the Federal Confidentiality of Alcohol and Drug Abuse Patient Records regulations: The Federal rules restrict any use of the information to criminally investigate or prosecute any alcohol or drug abuse patient.[facility] CenterIn the event this information is protected by the Federal Confidentiality of Alcohol and Drug Abuse Patient Records regulations: The Federal rules restrict any use of the information to criminally investigate or prosecute any alcohol or drug abuse patient.[facility] CenterIn the event this information is protected by the Federal Confidentiality of Alcohol and Drug Abuse Patient Records regulations: The Federal rules restrict any use of the information to criminally investigate or prosecute any alcohol or drug abuse patient.[facility] Reason for Visit (unrecogniz ed section and [...] Reason Comments Results Reason Comments Faxed to [facility] med/surg Reason Comments Patient Request Patient is going to the zoo 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 Reason Comments Hospital F/U Reason Comments verbal orders Reason Onset Date Comments Community Monitoring Outreach 04/20/2023 Reason Comments F/U 6 months Reason Onset Date Comments Community Monitoring Outreach 06/27/2023 Reason Onset Date Comments Community Monitoring Outreach 07/20/2023 Reason Onset Date Comments Community Monitoring Outreach 09/02/2023 Reason Comments Research Pre-Screen Research Reason Onset Date Comments Community Monitoring Outreach 09/23/2023 Reason Onset Date Comments Community Monitoring Outreach 12/06/2023 Reason Comments Imm/Inj Specialty Diagnoses / Procedures Referred By Contac t Referred To Contact Diagnoses Prostate cancer (HCC) Procedures LEUPROLIDE ACETATE SUSPNSION Geronimo Swift, DO [address] [place] [address] [facility] [address] [place] [address] Referral ID Status Reason Start Date Expiration Date V isits Requested Visits Authorized [id number] Authorized 09/28/2023 11/06/2024 99 99 Care Teams (unrecognized sec tion and content) Fish Drier Relationship Specialty Start Date End Date Manuel Beebe MD [address] [place], [place] [id number] PCP - General Internal Medicine 12/31/13 Nivia, Cosme S Dewatering Filtering Supervisor Cardiology 07/09/20 Albino Copeland, traveling repair accountantWelder Tack Internal Medicine 05/19/[address] [facility] [address] [place], [place] [id number] Pharmacist Pharmacy 02/02/22 Fish Drier Relationship Specialty Start Date End Date Manuel Beebe MD [address] [place], [place] [id number] PCP - General Internal Medicine 12/31/13 Nivia, Cosme S Dewatering Filtering Supervisor Cardiology 07/09/20 Albino Copeland, traveling repair accountantWelder Tack Internal Medicine 05/19/[address] [facility] [address] [place] [address] Pharmacist Pharmacy 02/02/22 Fish Drier Relationship Specialty Start Date End Date Manuel Beebe MD [address] [place] [address] PCP - General Internal Medicine 12/31/13 Nivia, Cosme S Dewatering Filtering Supervisor Cardiology 07/09/20 Albino Copeland, traveling repair accountantWelder Tack Internal Medicine 05/19/[address] [facility] [address] [place] [address] Pharmacist Pharmacy 02/02/22 Fish Drier Relationship Specialty Start Date End Date No, Physician [facility] PCP - General 02/10/22 Fish Drier Relationship Specialty Start Date End Date Manuel Beebe MD [address] [place] [address] PCP - General Internal Medicine 12/31/13 Nivia, [place] S Dewatering Filtering Supervisor Cardiology 07/09/20 Albino Copeland, traveling repair accountantWelder Tack Internal Medicine 05/19/21 [facility] [address] [place] [address] Pharmacist Pharmacy 02/02/22 Fish Drier Relationship Specialty Start Date End Date No, Physician [facility] PCP - General 02/10/22 Fish Drier Relationship Specialty Start Date End Date Manuel Beebe MD [address] [place] [address] PCP - General Internal Medicine 12/31/13 Nivia, Cosme S Dewatering Filtering Supervisor Cardiology 07/09/20 Lorrie Osorio RN [address] [id number] Welder Tack 05/08/2105/08 Lex Posada (Rn) [address] [place], [place] [address] [facility] 05/08/2105/07 Albino Copeland, traveling repair accountantWelder Tack Internal Medicine 05/19/21 [facility] [address] [place] [address] Pharmacist Pharmacy 02/02/22 Fish Drier Relationship Specialty Start Date End Date Manuel Beebe MD [address] [place], [place] [id number] PCP - General Internal Medicine 12/31/13 Nivia, Cosme S Dewatering Filtering Supervisor Cardiology 07/09/20 Albino Copeland, traveling repair accountantWelder Tack Internal Medicine 05/19/21 [facility] [address] [place], [place] [address] Pharmacist Pharmacy 02/02/22 Fish Drier Relationship Specialty Start Date End Date No, Physician [facility] PCP - General 02/10/22 Fish Drier Relationship Specialty Start Date End Date No, Physician [facility] PCP - General 02/10/22 Fish Drier Relationship Specialty Start Date End Date No, Physician [facility] PCP - General 02/10/22 Fish Drier Relationship Specialty Start Date End Date No, Physician [facility] PCP - General 02/10/22 Fish Drier Relationship Specialty Start Date End Date Manuel Beebe MD [address] [place], [place] [id number] PCP - General Internal Medicine 12/31/13 Nivia, Cosme S Dewatering Filtering Supervisor Cardiology 07/09/20 Albino Copeland, traveling repair accountantWelder Tack Internal Medicine 05/19/[address] [facility] [address] [place] [address] Pharmacist Pharmacy 02/02/22 Fish Drier Relationship Specialty Start Date End Date Manuel Beebe MD [address] [place] [address], [place] [address] PCP - General Internal Medicine 12/31/13 Nivia, Cosme S Dewatering Filtering Supervisor Cardiology 07/09/20 Albino Copeland, traveling repair accountantWelder Tack Internal Medicine 05/19/[address] [facility] [address] [place] [address] Pharmacist Pharmacy 02/02/22 Fish Drier Relationship Specialty Start Date End Date Manuel Beebe MD [address] [place] [address], [place] [address] PCP - General Internal Medicine 12/31/13 Nivia, Cosme S Dewatering Filtering Supervisor Cardiology 07/09/20 Albino Copeland, traveling repair accountantWelder Tack Internal Medicine 05/19/21 Jana Lara, [facility] [address] [place] [address] Pharmacist Pharmacy 02/02/22 Fish Drier Relationship Specialty Start Date End Date Manuel Beebe MD [address] [place] [address], [place] [address] PCP - General Internal Medicine 05/05/22 Fish Drier Relationship Specialty Start Date End Date Manuel Beebe MD [address] [place] [address], [place] [address] PCP - General Internal Medicine 05/05/22 Fish Drier Relationship Specialty Start Date End Date Manuel Beebe MD [address] [place] [address] PCP - General Internal Medicine 05/05/22 Fish Drier Relationship Specialty Start Date End Date Manuel Beebe MD [address] [place] [address] PCP - General Internal Medicine 12/31/13 Nivia, [place] S Dewatering Filtering Supervisor Cardiology 07/09/20 Albino Copeland, traveling repair accountantWelder Tack Internal Medicine 05/19/[address] [facility] [address] [place] [address] Pharmacist Pharmacy 02/02/22 Fish Drier Relationship Specialty Start Date End Date Manuel Beebe MD [address] [place] [address] PCP - General Internal Medicine 12/31/13 Nivia, Cosme S Dewatering Filtering Supervisor Cardiology 07/09/20 Albino Copeland, traveling repair accountantWelder Tack Internal Medicine 05/19/21 Jana Lara, [facility] [address] [place] [address] Pharmacist Pharmacy 02/02/22 Fish Drier Relationship Specialty Start Date End Date Manuel Beebe MD [address] [place] [address] PCP - General Internal Medicine 12/31/13 Nivia, [place] S Dewatering Filtering Supervisor Cardiology 07/09/20 Albino Copeland, traveling repair accountantWelder Tack Internal Medicine 05/19/21 Jana Lara, [facility] [address] [place] [address] Pharmacist Pharmacy 02/02/22 Fish Drier Relationship Specialty Start Date End Date Manuel Beebe MD [address] [place] [address] PCP - General Internal Medicine 12/31/13 Nivia, [place] S Dewatering Filtering Supervisor Cardiology 07/09/20 Lex Posada, traveling repair accountantWelder Tack Internal Medicine 05/19/[address] [facility] [address] [place] [address] Pharmacist Pharmacy 02/02/22 Fish Drier Relationship Specialty Start Date End Date Manuel Beebe MD [address] [place] [address] PCP - General Internal Medicine 12/31/13 Nivia, [place] S [address] [place] [address] Dewatering Filtering Supervisor Cardiology 07/09/20 Lex Posada, traveling repair accountantWelder Tack Internal Medicine 05/19/[address] [facility] [address] [place] [address] Pharmacist Pharmacy 02/02/22 Fish Drier Relationship Specialty Start Date End Date Manuel Beebe MD [address] [place] [address] PCP - General Internal Medicine 12/31/13 Nivia, [place] S [address] [place] [address] Dewatering Filtering Supervisor Cardiology 07/09/20 Lex Posada, traveling repair accountantWelder Tack Internal Medicine 05/19/[address] [facility] [address] [place] [address] Pharmacist Pharmacy 02/02/22 Fish Drier Relationship Specialty Start Date End Date Manuel Beebe MD [address] [facility] [place] [address] PCP - General Internal Medicine 12/31/13 Nivia, [place] S [address] [place] [address] Dewatering Filtering Supervisor Cardiology 07/09/20 Lex Posada, traveling repair accountantWelder Tack Internal Medicine 05/19/21 Jana Lara, [facility] [address] [place] [address] Pharmacist Pharmacy 02/02/22 Fish Drier Relationship Specialty Start Date End Date Manuel Beebe MD [address] [place] [address] PCP - General Internal Medicine 12/31/13 Nivia, [place] S [address] [place] [address] Dewatering Filtering Supervisor Cardiology 07/09/20 Lex Posada, traveling repair accountantWelder Tack Internal Medicine 05/19/21 Jana Lara, [facility] [address] [place] [address] Pharmacist Pharmacy 02/02/22 Fish Drier Relationship Specialty Start Date End Date Manuel Beebe MD [address] [place] [address] PCP - General Internal Medicine 12/31/13 Nivia, [place] S [address] [place] [address] Dewatering Filtering Supervisor Cardiology 07/09/20 Lex Posada, traveling repair accountantWelder Tack Internal Medicine 05/19/21 Jana Lara, [facility] [address] [place] [address] Pharmacist Pharmacy 02/02/22 Fish Drier Relationship Specialty Start Date End Date Manuel Beebe MD [address] [facility] [place] [address] PCP - General Internal Medicine 12/31/13 Nivia, Cosme S [address] [facility] [address] Dewatering Filtering Supervisor Cardiology 07/09/20 Lex Posada, traveling repair accountantWelder Tack Internal Medicine 05/19/[address] [facility] [address] [facility] [place] [address] Pharmacist Pharmacy 02/02/22 Fish Drier Relationship Specialty Start Date End Date Manuel Beebe MD [address] [place] [address] PCP - General Internal Medicine 12/31/13 Nivia, [place] S [address] [facility] [address] Dewatering Filtering Supervisor Cardiology 07/09/20 Lex Posada, traveling repair accountantWelder Tack Internal Medicine 05/19/21 Jana Lara, [facility] [address] [place] [address] Pharmacist Pharmacy 02/02/22 Fish Drier Relationship Specialty Start Date End Date Manuel Beebe MD [address] [place] [address] PCP - General Internal Medicine 12/31/13 Nivia, Cosme S [address] [facility] [address] Dewatering Filtering Supervisor Cardiology 07/09/20 Lex Posada, traveling repair accountantWelder Tack Internal Medicine 05/19/21 Jana Lara, [facility] [address] [place] [address] Pharmacist Pharmacy 02/02/22 Fish Drier Relationship Specialty Start Date End Date Manuel Beebe MD [address] [place] [address] PCP - General Internal Medicine 12/31/13 Nivia, Cosme S [address] [place] [address] Dewatering Filtering Supervisor Cardiology 07/09/20 Lex Posada, traveling repair accountantWelder Tack Internal Medicine 05/19/[address] [facility] [address] [place] [address] Pharmacist Pharmacy 02/02/22 Fish Drier Relationship Specialty Start Date End Date Manuel Beebe MD [address] [place] [address] PCP - General Internal Medicine 12/31/13 Nivia, Cosme S [address] [place] [address] Dewatering Filtering Supervisor Cardiology 07/09/20 Lex Posada, traveling repair accountantWelder Tack Internal Medicine 05/19/[address] [facility] [address] [place] [address] Pharmacist Pharmacy 02/02/22 Fish Drier Relationship Specialty Start Date End Date Manuel Beebe MD [address] [place] [address] PCP - General Internal Medicine 12/31/13 Nivia, Cosme S [address] [place] [address] Dewatering Filtering Supervisor Cardiology 07/09/20 Lex Posada, traveling repair accountantWelder Tack Internal Medicine 05/19/[address] [facility] [address] [place] [address] Pharmacist Pharmacy 02/02/22 Fish Drier Relationship Specialty Start Date End Date Manuel Beebe MD [address] [place] [address] PCP - General Internal Medicine 12/31/13 Nivia, Cosme S [address] [place] [address] Dewatering Filtering Supervisor Cardiology 07/09/20 Lex Posada, traveling repair accountantWelder Tack Internal Medicine 05/19/[address] [facility] [address] [place] [address] Pharmacist Pharmacy 02/02/22 Fish Drier Relationship Specialty Start Date End Date Manuel Beebe MD [address] [place] [address] PCP - General Internal Medicine 12/31/13 Nivia, [place] S [address] [place] [address] Dewatering Filtering Supervisor Cardiology 07/09/20 Lex Posada traveling repair accountantWelder Tack Internal Medicine 05/19/[address] [facility] [address] [place] [address] Pharmacist Pharmacy 02/02/22 Fish Drier Relationship Specialty Start Date End Date Manuel Beebe MD [address] [place] [address] PCP - General Internal Medicine 12/31/13 Nivia, Cosme S [address] [place] [address] Dewatering Filtering Supervisor Cardiology 07/09/20 Lex Posada, traveling repair accountantWelder Tack Internal Medicine 05/19/21 [facility] [address] [place] [address] Pharmacist Pharmacy 02/02/22 Fish Drier Relationship Specialty Start Date End Date Manuel Beebe MD [address] [place] [address] PCP - General Internal Medicine 12/31/13 Cosme Gonzáles S [address] [place] [address] Dewatering Filtering Supervisor Cardiology 07/09/20 Lex Posada, traveling repair accountantWelder Tack Internal Medicine 05/19/21 [facility] [address] [place] [address] Pharmacist Pharmacy 02/02/22 Fish Drier Relationship Specialty Start Date End Date Manuel Beebe MD [address] [place] [address] PCP - General Internal Medicine 12/31/13 Cosme Gonzáles [address] [place] [address] Dewatering Filtering Supervisor Cardiology 07/09/20 Lex Posada, traveling repair accountantWelder Tack Internal Medicine 05/19/21 [facility] [address] [place] [address] Pharmacist Pharmacy 02/02/22 Fish Drier Relationship Specialty Start Date End Date Manuel Beebe MD [address] [place] [address] PCP - General Internal Medicine 12/31/13 Cosme Gonzáles MD [address] [place] [address] Dewatering Filtering Supervisor Cardiology 07/09/20 Lex Posada, traveling repair accountantWelder Tack Internal Medicine 05/19/21 [facility] [address] [place] [address] Pharmacist Pharmacy 02/02/22 Fish Drier Relationship Specialty Start Date End Date Manuel Beebe MD [address] [place] [address] PCP - General Internal Medicine 12/31/13 Cosme Gonzáles MD [address] [place] [address] Dewatering Filtering Supervisor Cardiology 07/09/20 Lex Posada RN Welder Tack Internal Medicine 05/19/21 [facility] [address] [place] [address] Pharmacist Pharmacy 02/02/22 Fish Drier Relationship Specialty Start Date End Date Manuel Beebe MD [address] [place] [address] PCP - General Internal Medicine 12/31/13 Cosme Gonzáles MD [address] [place] [address] Dewatering Filtering Supervisor Cardiology 07/09/20 Lex Posada RN Welder Tack Internal Medicine 05/19/[address] [facility] Pharmacist Pharmacy 02/02/22 Fish Drier Relationship Specialty Start Date End Date Manuel Beebe MD [address] [place] [address] PCP - General Internal Medicine 12/31/13 Cosme Gonzáles MD [address] [facility] [address] Dewatering Filtering Supervisor Cardiology 07/09/20 Lex Posada, traveling repair accountantWelder Tack Internal Medicine 05/19/21 [facility]enter[facility] Pharmacist Pharmacy 02/02/22 Fish Drier Relationship Specialty Start Date End Date Manuel Beebe MD [address] [place] [address] PCP - General Internal Medicine 12/31/13 Cosme Gonzáles MD [address] [place] [address] Dewatering Filtering Supervisor Cardiology 07/09/20 Lex Posada RN Welder Tack Internal Medicine 05/19/21 Fish Drier Relationship Specialty Start Date End Date Manuel Beebe MD [address] [place] [address] PCP - General Internal Medicine 12/31/13 Cosme Gonzáles MD [address] [place] [address] Dewatering Filtering Supervisor Cardiology 07/09/20 Lex Posada RN Welder Tack Internal Medicine 05/19/21 Fish Drier Relationship Specialty Start Date End Date Manuel Beebe MD [address] [place] [address] PCP - General Internal Medicine 12/31/13 Cosme Gonzáles MD [address] [place] [address] Dewatering Filtering Supervisor Cardiology 07/09/20 Lex Posada, traveling repair accountantWelder Tack Internal Medicine 05/19/21 Fish Drier Relationship Specialty Start Date End Date Manuel Beebe MD [address] [place] [address] PCP - General Internal Medicine 12/31/13 Cosme Gonzáles MD [address] [place] [address] Dewatering Filtering Supervisor Cardiology 07/09/20 Lex Posada RN Welder Tack Internal Medicine 05/19/21 Fish Drier Relationship Specialty Start Date End Date Manuel Beebe MD [address] [place] [address] PCP - General Internal Medicine 12/31/13 Cosme Gonzáles MD [address] [place] [address] Dewatering Filtering Supervisor Cardiology 07/09/20 Lex Posada traveling repair accountantWelder Tack Internal Medicine 05/19/21 Fish Drier Relationship Specialty Start Date End Date Manuel Beebe MD [address] [place] [address] PCP - General Internal Medicine 12/31/13 Cosme Gonzáles MD [address] [place] [address] Dewatering Filtering Supervisor Cardiology 07/09/20 Lex Posada, traveling repair accountantWelder Tack Internal Medicine 05/19/21 (unrecognized sect ion and content) No Status Records FoundNo Status Records FoundNo Status Records Found INFORMATION SOURCE (unrecogn ized section and content) DATE CREATED AUTHOR AUTHOR'S ORGANIZ ATION 06/20/2022 [facility] DATE CREATED AUTHOR AUTHOR'S ORGANIZ ATION 12/27/2023 [facility] Inactive Administered Medications - up to 3 most recent administrations Administered Medications (un recognized section and content) FOR RECORDS PERTAINING TO PATIENTS WHO ARE [...] BE BASED ON THE PRIMARY CLINICAL RECORDS. [facility]. provides no warranty or guarantee of the accuracy or completeness of information in this document.
[2023-12-30 09:22] LABS: Phosphorus 3.5 mg/dL (2.5-4.9)
== END ==
LOC: OLS.SW 05:00
PROVIDERS: PCP Internal Medicine; Visit Provider Internal Medicine
DX: G93.41 Metabolic encephalopathy (principal)
CPT/HCPCS: 36415; 84100

== ENCOUNTER → 2024-01-06 | Outpatient (REF) | payer MEDICARE, MEDICAID, SELFPAY ==
--- OUTSIDE RECORDS SUMMARY | 2024-01-06 04:51 | XMS RPT_ITS | CCD ---
Author Name Unknown Address [address] [facility] [address] [place] [address] Organization [facility] Care Team Providers Care Quality Control Projectionist Name Role Phone Manuel Beebe MD Primary Care Provider Nivia, Cosme S Unavailable Lex WINSTON, Albino Oliveira Unavailable Unavailabl e [facility], Keti Unavailable Unavailable Primary Care Provider Unavailabl e No, Physician Primary Care Provider Unavailabl renny Osorio RN, Lorrie Unavailable Lex Posada (Rn) Unavailable Manuel Beebe MD Primary Care Provider Manuel Beebe MD Primary Care Provider Nivia, Cosme S Unavailable Lex WINSTON, Albino Oliveira Unavailable Unavailabl e [facility], Keti Unavailable NO, PHYSICIAN Primary Care Unavailable [...] Primary Care Unavailable Nivia, Cosme S Unavailable [facility], Keti Unavailable Albino WINSTON, Lex Oliveira Unavailable Unavailabl e Parker BUSTILLO, Manuel Quarles Primary Care Provider Nivia, [place] S Unavailable Albino WINSTON, Lex Oliveira Unavailable Unavailabl e [facility], Keti Unavailable Nivia, Cosme S Unavailable Albino WINSTON, Lex Oliveira Unavailable Unavailabl e Nivia BUSTILLO, Cosme S Unavailable [facility], Keti Unavailable OLGA STYLES Attending Unavailable TALAMPAS, MANUEL D Primary Care Unavailable TALAMPAS, MANUEL D Primary Care Unavailable RIVER FIORE Attending [...] Allergy 9 Intolerance, Other (See Comments) [facility] Work Phone: (20 sources) metFORMIN; Translations: [METFORMIN] Drug Allergy 1 Diarrhea [facility] Work Phone: (13 sources) oxyCODONE; Translations: [OXYCODONE] Drug Allergy 2 Itching, Headache [facility] (10 sources) Acetaminophen; Translations: [ACETAMINOPHEN] Drug Allergy 2 Other (See Comments) [facility] (10 sources) Bermuda grass pollen extract; Translations: [ALLERG EX,GRASS POLLEN-BERMUDA] Drug Allergy 9 Unknown [facility] (11 sources) Acetaminophen / oxyCODONE; Translations: [OXYCODONE-ACETAM INOPHEN] Drug Allergy 3 Unknown [facility] Medications Current Medications Medication Drug Class(es) Dates [...] Respiratory failure; insufficiency; arrest (adult) (20 sources) Xduln-vz-skaojjz respiratory failure; Translations: [Acute and chronic respiratory [...] current use of anticoagulant; 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] Onset: 02-24-2017 02-24-2017 Episodic Other aftercare (20 sources) Drug therapy finding; Translations: [jail (current) use of anticoagulants] Onset: 10-25-2019 10-25-2019 Episodic Other aftercare (1 source) jail (current) use of insulin; Translations: [Type 2 [...] temperature 97.9 [degF] Injection Wstr Work Phone: [facility] 12-21-2023 14:52-0500 Diastolic blood pressure 62 mm[Hg] Injection Wstr Work Phone: [facility] 12-21-2023 14:52-0500 Heart rate 68 /min Injection Wstr Work Phone: [facility] 12-21-2023 14:52-0500 Respiratory rate 12 /min Injection Wstr Work Phone: [facility] 12-21-2023 14:52-0500 SaO2% (BldA) [Mass fraction] 97 % Injection Wstr Work Phone: [facility] 12-21-2023 14:52-0500 Systolic blood pressure 82 mm[Hg] Injection Wstr Work Phone: [facility] 04-12-2023 14:21-0400 Diastolic blood pressure 57 mm[Hg] Olga Styles CREAM BEATER.FINANCIAL SERVICES ASSISTANT Work Phone: [facility] 04-12-2023 14:21-0400 Systolic blood pressure 83 mm[Hg] Olga Styles CREAM BEATER.FINANCIAL SERVICES ASSISTANT Work Phone: [facility] 04-12-2023 14:10-0400 Body weight 73.48 kg Olga Styles CREAM BEATER.FINANCIAL SERVICES ASSISTANT Work Phone: [facility] 04-12-2023 14:10-0400 Heart rate 70 /min Olga Styles CREAM BEATER.FINANCIAL SERVICES ASSISTANT Work Phone: [facility] 04-12-2023 14:10-0400 Respiratory rate 14 /min Olga Styles CREAM BEATER.FINANCIAL SERVICES ASSISTANT Work Phone: [facility] 04-12-2023 14:10-0400 SaO2% (BldA) [Mass fraction] 99 % Olga Styles CREAM BEATER.FINANCIAL SERVICES ASSISTANT Work Phone: [facility] 03-23-2023 08:11-0400 Body temperature 97.7 [degF] Manuel Beebe MD Work Phone: [facility] 03-23-2023 08:11-0400 Body weight 78.47 kg Manuel Beebe MD Work Phone: [facility] 03-23-2023 08:11-0400 Diastolic blood pressure 72 mm[Hg] Manuel Beebe MD Work Phone: [facility] 03-23-2023 08:11-0400 Heart rate 65 /min Manuel Beebe MD Work Phone: [facility] 03-23-2023 08:11-0400 Respiratory rate 18 /min Manuel Beebe MD Work Phone: [facility] 03-23-2023 08:11-0400 SaO2% (BldA) [Mass fraction] 97 % Manuel Beebe MD Work Phone: [facility] 03-23-2023 08:11-0400 Systolic blood pressure 118 mm[Hg] Manuel Beebe MD Work Phone: [facility] 03-09-2023 11:48-0400 Body height 177.8 cm Home Loredo MD Work Phone: [facility] 03-09-2023 11:48-0400 Body temperature 97 [degF] Home Loredo MD Work Phone: [facility] 03-09-2023 11:48-0400 Body weight 78.02 kg Home Loredo MD Work Phone: [facility] 03-09-2023 11:48-0400 Diastolic blood pressure 48 mm[Hg] Home Loredo MD Work Phone: [facility] 03-09-2023 11:48-0400 Heart rate 70 /min Home Loredo MD Work Phone: [facility] 03-09-2023 11:48-0400 SaO2% (BldA) [Mass fraction] 98 % Home Loredo MD Work Phone: [facility] 03-09-2023 11:48-0400 Systolic blood pressure 119 mm[Hg] Home Loredo MD Work Phone: [facility] 09-02-2022 11:18-0400 Body height 175.3 cm Home Loredo MD Work Phone: [facility] 09-02-2022 11:18-0400 Body temperature 97.7 [degF] Home Loredo MD Work Phone: [facility] 09-02-2022 11:18-0400 Body weight 77.56 kg Home Loredo MD Work Phone: [facility] 09-02-2022 11:18-0400 Diastolic blood pressure 73 mm[Hg] Home Loredo MD Work Phone: [facility] 09-02-2022 11:18-0400 Heart rate 70 /min Home Loredo MD Work Phone: [facility] 09-02-2022 11:18-0400 SaO2% (BldA) [Mass fraction] 99 % Home Loredo MD Work Phone: [facility] 09-02-2022 11:18-0400 Systolic blood pressure 116 mm[Hg] Home Loredo MD Work Phone: [facility] 06-15-2022 16:04-0400 Body height 175.3 cm Munira Dickerson MD Work Phone: [facility] 06-15-2022 16:04-0400 Body mass index (BMI) [Ratio] 25.84 kg/m2 Munira Dickerson MD Work Phone: [facility] 06-15-2022 16:04-0400 Body weight 79.38 kg Munira Dickerson MD Work Phone: [facility] 03-23-2022 14:02-0400 Body height 175.3 cm Munira Dickerson MD Work Phone: [facility] 03-23-2022 14:02-0400 Body mass index (BMI) [Ratio] 24.22 kg/m2 Munira Dickerson MD Work Phone: [facility] 03-23-2022 14:02-0400 Body weight 74.39 kg Munira Dickerson MD Work Phone: [facility] Encounters Encounter Date Encounter Type Care Provider Facility Start: 12-22-2023 End: 12-23-2023 Orders Only Rebecca Garcia APRN.C ENGINEER Work Phone: [facility] Procedures Date Procedure [...] Author Start: 12-22-2024 Creatinine measurement Serum Creatinine [facility] Start: 12-01-2024 BP Controlled (<130/80) BP Controlled (<130/80) [facility] Start: 09-28-2024 BP Controlled (<130/80) BP Controlled (<130/80) [facility] Start: 04-12-2024 BP CONTROLLED (<130/80) BP CONTROLLED (<130/80) [facility] Start: 03-23-2024 ANNUAL PCP TEAM CHRONIC DISEASE VISIT ANNUAL PCP TEAM CHRONIC DISEASE VISIT [facility] Start: 03-23-2024 BP CONTROLLED (<130/80) BP CONTROLLED (<130/80) [facility] Start: 03-09-2024 BP CONTROLLED (<130/80) BP CONTROLLED (<130/80) [facility] Start: 03-09-2024 Creatinine measurement Serum Creatinine [facility] Start: 03-09-2024 SERUM CREATININE SERUM CREATININE [facility] Start: 02-07-2024 Colonoscopy COLONOSCOPY [facility] Start: 02-07-2024 COLORECTAL CANCER SCREENING COLORECTAL CANCER SCREENING [facility] Start: 02-07-2024 Screening for malignant neoplasm of colon [facility] Start: 12-31-2023 Tetanus vaccination Tetanus: Every 10yrs [facility] Start: 12-31-2023 Urine microalbumin profile [facility] Start: 12-22-2023 End: 03-22-2024 OCCUPATIONAL HEALTH EXPOSURE PROFILE/PATIENT [facility] Work Phone: Immunizations Immunization Date Immunization Notes Care Provider Mariangel frank 10-08-2022 influenza virus vaccine, unspecified formulation Lex Posada RN [facility] 10-01-2022 COVID-19 booster vaccine, age 12+ yr, bivalent (PFIZER-BIONTECH) Manuel Beebe MD Work Phone: [facility] 10-01-2022 influenza, high-dose , quadrivalent vaccine (FLUZONE HIGH DOSE QUADRIVALENT) Manuel Beebe MD Work Phone: [facility] 02-23-2022 COVID-19 original vaccine, age 12+ yr, monovalent (PFIZER-BIONTECH - PURPLE TOP) Manuel Beebe MD Work Phone: [facility] 10-07-2021 COVID-19 vaccine, ag e 12+ yr (PFIZER-BIONTECH - PURPLE TOP) Manuel Beebe MD Work Phone: [facility] Work Phone: 09-25-2021 influenza, high-dose , quadrivalent vaccine (FLUZONE HIGH DOSE QUADRIVALENT) Manuel Beebe MD Work Phone: [facility] 03-26-2021 COVID-19 vaccine, ag e 12+ yr (PFIZER-BIONTECH - PURPLE TOP) Manuel Beebe MD Work Phone: [facility] 03-05-2021 COVID-19 vaccine, ag e 12+ yr (PFIZER-BIONTECH - PURPLE TOP) Manuel Beebe MD Work Phone: [facility] 08-12-2020 influenza, high dose seasonal, preservative-free Manuel Beebe MD Work Phone: [facility] Work Phone: 04-02-2020 hepatitis A and hepatitis B vaccine Manuel Beebe MD Work Phone: [facility] Work Phone: 09-24-2019 hepatitis A and hepatitis B vaccine Manuel Beebe MD Work Phone: [facility] Work Phone: 08-23-2019 hepatitis A and hepatitis B vaccine Manuel Beebe MD Work Phone: [facility] Work Phone: 08-02-2019 influenza, high dose seasonal, preservative-free Manuel Beebe MD Work Phone: [facility] 02-13-2019 pneumococcal polysaccharide vaccine, 23 valent Manuel Beebe MD Work Phone: [facility] 08-28-2018 influenza, high dose seasonal, preservative-free Manuel Beebe MD Work Phone: [facility] Work Phone: 10-07-2017 pneumococcal conjuga te vaccine, 13 valent Manuel Beebe MD Work Phone: [facility] 06-19-2017 influenza, high dose seasonal, preservative-free Manuel Beebe MD Work Phone: [facility] Work Phone: 08-11-2016 influenza, seasonal, injectable Manuel Beebe MD Work Phone: [facility] Work Phone: 07-24-2015 influenza virus vaccine, unspecified formulation Manuel Beebe MD Work Phone: [facility] 08-15-2014 influenza virus vaccine, unspecified formulation Manuel Beebe MD Work Phone: [facility] 12-31-2013 pneumococcal polysaccharide vaccine, 23 valent Manuel Beebe MD Work Phone: [facility] 12-31-2013 tetanus toxoid, redu osei diphtheria toxoid, and acellular pertussis vaccine, adsorbed Manuel Beebe MD Work Phone: [facility] NEGATED: Highlighted row has not occurred!09-25-2021 COVID-19 vaccine, age 12+ yr ([employer] - PURPLE TOP) Manuel Beebe MD Work Phone: [facility] Payers Date Payer Category Payer Medicaid [id number] 2023 Medicaid [id number] 2017 Private Health Insurance [employer]ET[employer] A ETNA MEDICARE SUPPLEMENT [id number] 2017-Present [phone] [address] [address] [place] [address] Indemnity [id number] 2017 Private Health Insurance [id number] 2017 Private Health Insurance [facility] [id number] 2013 Medicare MEDICARE MEDICAR E A AND B [id number] 2013-Present [phone] [place] [address] Medicare [id number] 2013 Medicare [id number] 2013 Medicare [id number] 1950 Unknown [id number]. 903 1950 Unknown [id number] [id number]. 903 1950 Unknown [id number]. 903 1950 Unknown [id number] [id number]. 903 1950 Unknown [id number] [id number]. 903 1952 Unknown [id number] 2.16.840.1.190530.3.579.2. 903 1950 Unknown [id number] [id number]. 903 1950 Unknown [id number] [id number]. 903 1950 Unknown [id number] [id number]. 903 1950 Unknown [id number] 2.16.840.1.507119.3.579.2. 903 1950 Unknown [id number] [id number]. 903 Unknown COMMERCIAL COMME RCIAL MISCELLANEOUS [id number] Effective for all dates [phone] [address] [address] [place] [address] [id number] Social History Date Type Detail Facility Start: 12-31-2013 End: 09-02-2022 Tobacco smoking status NHIS Ex-smoker [facility] Work Phone: Start: 1967 End: 07-20-2013 History of tobacco use Current smoker [facility] Work Phone: Start: 12-31-2013 End: 03-09-2023 Cigarettes smoked current (pack per day) - Reported 0.5 [facility] Start: 12-31-2013 End: 09-02-2022 Tobacco use and exposure Smokeless tobacco non-user [facility] Work Phone: Start: 01-12-2022 End: 12-01-2023 Alcohol intake Current non-drinker of alcohol (finding) [facility] Start: 04-01-2020 History SDOH Social Connections Phone 4 [facility] Start: 04-01-2020 History SDOH Social Connections Get Together 3 [facility] Start: 04-01-2020 History SDOH Social Connections Meetings 1 [facility] Start: 04-01-2020 History SDOH Stress 2 [facility] Start: 04-01-2020 History SDOH Financial 5 [facility] Start: 12-31-2013 End: 09-02-2022 Tobacco Comment Had smoked 40 years 1 PPD every 2 to 3 days (about 20 pack years) [facility] Start: 1950 Sex Assigned At Not on file C [facility] Start: 12-13-2021 End: 10-01-2022 Exposure to SARS-CoV-2 (event) Not sure [facility] Work Phone: Start: 02-10-2022 [facility] tobacco [facility] Start: 02-15-2022 End: 06-15-2022 Alcohol intake Current drinker of alcohol (finding) [facility] Start: 02-10-2022 History SDOH Alcohol Comment formerly drank, not in many years [facility] Start: 1967 End: 07-20-2013 History of tobacco use Cigarette Smoker [facility] Work Phone: Start: 04-01-2020 End: 03-09-2023 Social connection and isolation panel [facility] Attends Synagogue Services Not on file [facility] Do you feel stress - tense, restless, nervous, or anxious, or unable to sleep at night because your mind is troubled all the time - these days [OSQ] Only a little [facility] At any time in the p ast 12 months, were you homeless or living in correction [including now]? No [facility] Medical Equipment Procedure Code Equipment Code Equipment Origin al Text Equipment Identifier Dates [employer] Margin Clerk-D [id number] Start: 10-12-2019 [employer] [id number] Start: 10-12-2019 [employer] [id number] Start: 10-12-2019 [employer] [id number] Start: 10-12-2019 [id number] Start: 07-06-2017 End: 02-03-2022 Goals Date Patient [...] 27, 2023 8:40 AM Faculty called in [facility] insurance will not pay, no prior authorization 3000 out of pocket expense Not a skilled in faculty Not a faculty pay can we increase Lactulose 2.Phosphates Pt does not like taking it Not skilled in faculty Will not pay Please call Luisana at [phone] Luz Elena Snell Hot Dog Vender ll documented in this encounter [facility] 12-21-2023 Nurse Note Pt here for injection of Lupron. Given IM in left buttocks. Pt tolerated well. Glenda Humphrey LPN documented in this encounter [facility] 12-06-2023 Note HNO ID: [id number] Author: LEX POSADA RN Service: ? Author Type: Registered Nurse Type: Progress Notes Filed: 12/13/2023 11:48 Note Text: CDM Telephonic Outreach Provider Action/FYI Spk with Atif/ Pedro she states Pt is at [facility], considering AL due to mobility issues. He has a cell, chooses not to use it. Denies concerns or needs. [place], Goals updated Contacted for: Routine Telephonic Outreach Contact made with patient: Yes Patient identified by name and date of . Are you experiencing any new or worsening symptoms you need to talk about today? Yes Based on associate school psychologist, the following disposition is advised: No symptoms or symptoms present, not severe. Routed to: No Action Needed MATT Education Provided this Outreach: No Lex Posada RN December 06, 2023 1:27 PM [facility] 12-06-2023 Note Patient Outreach (AM [facility]) STEPH BAUMANN ([id number]) 1950 M Date Time Provider Department 12/06/23 LEX POSADA [facility] During your visit today, we recorded the following information about you: Lex Posada RN 12/13/2023 11:48 AM Signed CDM Telephonic Outreach Provider Jean Pierre/DOROTA Nelson with [employer]/ Pedro she states Pt is at [facility], considering AL due to mobility issues. He has a cell, chooses not to use it. Denies concerns or needs. [place], Goals updated Contacted for: Routine Telephonic Outreach Contact made with patient: Yes Patient identified by name and date of . Are you experiencing any new or worsening symptoms you need to talk about today? Yes Based on associate school psychologist, the following disposition is advised: No symptoms [...] by mouth onc (more content not included)... [facility] 12-06-2023 History of Present illness Narrative M Telephonic Outreach Provider Jean Pierre/DOROTA Nelson with [employer]/ Pedro she states Pt is at [facility], considering AL due to mobility issues. He has a cell, chooses not to use it. Denies concerns or needs. [place], Goals updated Contacted for: Routine Telephonic Outreach Contact made with patient: Yes Patient identified by name and date of . Are you experiencing any new or worsening symptoms you need to talk about today? Yes Based on associate school psychologist, the following disposition is advised: No symptoms or symptoms present, not severe. Routed to: No Action Needed MATT Education Provided this Outreach: No Lex Posada RN December 06, 2023 1:27 PM documented in this encounter [facility] 12-01-2023 Note HNO ID: [id number] Author: REYES ROSARIO MD Service: ? Author Type: Physician Type: Progress Notes Filed: 12/01/2023 13:01 Note Text: Endocrinology and Metabolism [place] Initial Clinic Visit Note NAME: Steph Baumann is a 73 year old old male PCP: Manuel Beebe MD Requesting [facility] [id number] My final recommendations will be communicated back [...] GERD, type 2 DM. He lives at [facility]. 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 [facility] 11-01-2023 Note HNO ID: [id number] Author: Lex Posada RN Service: ? Author [...] Posada RN November 01, 2023 1:34 PM [facility] 10-26-2023 Note HNO ID: [id number] Author: Travon Longoria RT(R) Service: ? Author [...] RT Kita(R) October 26, 2023 10:31 AM [facility] 10-25-2023 Note HNO ID: [id number] Author: Lex Posada RN Service: ? Author [...] Posada RN October 25, 2023 1:43 PM [facility] 10-25-2023 Note Patient Outreach (AM [facility]) VICENTE BAUMANNK Godwin ([id number]) 1950 M Date Time Provider Department 10/25/23 LEX POSADA [facility] During your visit today, we recorded the [...] mouth once daily. (more content not included)... [facility] 09-30-2023 Miscellaneous Notes [facility] at [facility] notified and took a verbal order. Thania Santos LPN ----- Message from Geronimo Swift DO sent at 09/29/2023 7:33 PM EST ----- Vit D is low. He is under [place] care at [facility]. Please give order to start Vit D3 2000 units PO daily if not already on vit D supplement. If he already is then increase to 5000 units daily. Geronimo Swift DO documented in this encounter [facility] 09-28-2023 Note HNO ID: [id number] Author: Geronimo Swift, DO Service: ? Author [...] biopsy on 11/12/2021. All 4 cores demonstrated Clayton grade 7, 2 of the cores were [...] for cirrhosis. Here today with POA from [place] (daughter's friend). Visits him every 2 weeks. Diagnosed with Parkinsons in April. Requires wheelchair. Was independent prior to that. Living at [facility]. Recently started having dysuria deep in when starts urinating. No gross hematuria. Started on antibiotic at [place]. Only pain is right hip and low back if sits too long. Right hip pain has been evaluated by his orthopedic several times as well as the low back pain. No clear etiology. 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 [facility]les jail current use of insulin (HCC) Metabolic encephalopathy Muscle (more content not included)... [facility] 09-23-2023 Note HNO ID: [id number] Author: Lex Posada RN Service: ? Author [...] Posada RN September 23, 2023 2:38 PM [facility] 09-23-2023 History of Present illness Narrative [...] 2:38 PM documented in this encounter [facility] 09-23-2023 Note Patient Outreach (AM [facility]) STEPH BAUMANN ([id number]) 1950 M Date Time Provider Department 09/23/23 [...] Visit Diagnosis:Chronic diastolic CHF (congestive heart failure) ([facility]) [I50.32] Order(s):PT ED HEART AND VASCULAR [[id number]] Order #: [id number]: 1 Prescriptions as of 09/23/2023 - acetaZOLAMIDE [...] embolism with cer (more content not included)... [facility] 09-21-2023 Note HNO ID: [id number] Author: Lillian John RN Service: ? Author Type: Registered Nurse Type: Progress Notes Filed: 09/21/2023 1:23 PM Note Text: Steph Baumann was reviewed for potential clinical trial enrollment on [facility] by the [facility] on 09/21/23. Per initial review, patient has disease type Prostate and appears to be not eligible based on Treatment . Requesting democrat notified. Lillian John RN [facility] 09-21-2023 Note HNO ID: [id number] Author: Lillian John RN Service: ? Author Type: Registered Nurse Type: Progress Notes Filed: 09/21/2023 1:23 PM Note Text: Steph Baumann was reviewed for potential clinical trial enrollment on [facility]GU008 by the [facility] on 09/21/23. Per initial review, patient has disease type Prostate and appears to be not eligible based on Treatment . Requesting democrat notified. Lillian John RN [facility] 09-21-2023 History of Present illness Narrative Steph Baumann was reviewed for potential clinical trial enrollment on [facility] by the [facility] on 09/21/23. Per initial review, patient has disease type Prostate and appears to be not eligible based on Treatment . Requesting democrat notified. Lillian John RN Steph Baumann was reviewed for potential clinical trial enrollment on [facility]GU008 by the [facility] on 09/21/23. Per initial review, patient has disease type Prostate and appears to be not eligible based on Treatment . Requesting democrat notified. Lillian John RN documented in this encounter [facility] 09-15-2023 Miscellaneous Notes Called Atif. Verified name and date of of patient. Informed- verbalizes understanding. States she speaks with patient daily and will let him know. María Jacobs LPN PSA is good undetectable, still needs consult for medical oncology for ADT therapy which it look like he has set. KLEVER Zheng MT, PA-C documented in this encounter [facility] 09-14-2023 Miscellaneous Notes Scheduled with Andra HERNÁNDEZ Schedule appt. With Dr. Jeniffer Barajas LPN Procedure: CONSULT TO ONCOLOGY Status: Needs Scheduling Requested appt date: Authorizing: [facility] Referral: [id number] (Authorized) Expires: 09/12/2024 Priority: Routine Diagnosis: Prostate cancer (HCC) [C61] Pt is requesting Dr. Swift. Please review and advise Michelle documented in this encounter [facility] 09-13-2023 Note HNO ID: [id number] Author: River Fiore PA-C Service: ? Author Type: Physician Rock Climbing Team Member Type: Progress Notes Filed: 09/13/2023 6:41 PM Note Text: [facility] ESTABLISHED PATIENT CLINIC NOTE [...] with Dr. Saravia on 11/13/2021 Report from [facility]: Prostate about 50 g, left lobe is hard and the right lobe is firm, symmetrical. This demonstrated Clayton score 4+3 adenocarcinoma involving 100% of 1 core in the left prostate, 55% of 1 core of the left prostate and Clayton score 3+4 adenocarcinoma involving 50% of 1 [...] And now not able to follow with [facility] due to insurance according to patient friend [...] twice daily. b (more content not included)... [facility] 09-13-2023 Note HNO ID: [id number] Author: María Jacobs LPN Service: ? Author [...] the procedure well. Plan: Appointment with River. [facility] 09-05-2023 Note HNO ID: [id number] Author: Lex Posada RN Service: ? Author [...] Posada RN September 05, 2023 6:39 PM [facility] 09-05-2023 History of Present illness Narrative [...] 10:26 AM documented in this encounter [facility] 09-02-2023 Note Patient Outreach (AM BC) STEPH BAUMANN ([id number]) 1950 M Date Time Provider Department 09/02/23 [...] [Z01.818] 12/31/2013 03/08/2016 (more content not included)... [facility] 09-02-2023 Note HNO ID: [id number] Author: Lex Posada, RN Service: ? Author [...] Posada RN September 02, 2023 10:26 AM [facility] 09-01-2023 Note Patient Outreach (JORI TNAV) GIOVANNY BAUMANNERICHortensia Connelly ([id number]) 1950 M Date Time Provider Department 09/01/23 [...] specified forms of (more content not included)... [facility] 09-01-2023 Note HNO ID: [id number] Author: Radha Aleman MA Service: ? Author Type: Physical Fitness Teacher Type: Progress Notes Filed: 09/01/2023 11:42 AM [...] Aleman MA September 01, 2023 8:30 AM [facility] 08-16-2023 Note HNO ID: [id number] Author: Lex Posada RN Service: ? Author [...] Posada RN August 16, 2023 4:02 PM [facility] 08-15-2023 Note HNO ID: [id number] Author: Lex Posada RN Service: ? Author [...] Posada RN August 15, 2023 12:13 PM [facility] 08-15-2023 Note Patient Outreach (AM BCMG) STEPH BAUMANN ([id number]) 1950 Roxanne Date Time Provider Department [facility] your visit today, we recorded the [...] 12/31/2013 03/08/2016 Ra (more content not included)... [facility] 08-12-2023 Miscellaneous Notes Luz Elena had faxed orders. Netta Espinal RN August 12, 2023 3:00 PM Netta, Has this been taken care of? Thanks Home Loredo MD called again saying that [facility] did not receive US order, labs. New fax number giving [phone] Will fax over items Luz Elena Snell Hot Dog Vender amya documented in this encounter [facility] 07-21-2023 Note HNO ID: [id number] Author: Lex Posada RN Service: ? Author [...] Posada RN July 21, 2023 4:42 PM [facility] 07-21-2023 History of Present illness Narrative [...] 10:34 AM documented in this encounter [facility] 07-20-2023 Note Patient Outreach (AM BC) STEPH BAUMANN ([id number]) 1950 Roxanne Date Time Provider Department 07/20/23 ELX POSADA [facility] During your visit today, we recorded the [...] [Z01.818] 12/31/2013 03/08/2016 (more content not included)... [facility] 07-20-2023 Note HNO ID: [id number] Author: Lex Posada RN Service: ? Author [...] Posada RN July 20, 2023 10:34 AM [facility] 06-28-2023 Note HNO ID: [id number] Author: Lex Posada RN Service: ? Author [...] Posada RN June 28, 2023 11:16 AM [facility] 06-28-2023 History of Present illness Narrative [...] 12:19 PM documented in this encounter [facility] 06-27-2023 Note HNO ID: [id number] Author: Lex Posada RN Service: ? Author [...] Posada RN June 27, 2023 12:19 PM [facility] 06-27-2023 Note Patient Outreach (AM BC) STEPH BAUMANN ([id number]) 1950 Roxanne Date Time Provider Department 06/27/23 [...] 12/31/2013 03/08/2016 Ra (more content not included)... [facility] 05-24-2023 Note HNO ID: [id number] Author: Lex Posada RN Service: ? Author Type: Registered Nurse Type: Progress Notes Filed: 05/24/2023 11:09 AM Note Text: CDM Telephonic Outreach Provider Action/FYI CDM: CHF, Asthma Left a message, Instructed to call PCP with any symptom or condition changes Contacted for: Routine Telephonic Outreach Contact made with patient: No, left message. Lex Posada RN May 24, 2023 11:07 AM [facility] 05-23-2023 Note HNO ID: [id number] Author: Lex Posada RN Service: ? Author [...] Posada RN May 23, 2023 1:24 PM [facility] 05-23-2023 Note Patient Outreach (AM BCMG) STEPH BAUMANN ([id number]) 1950 Date Time Provider Department 05/23/23 LEX [...] and other nonspecific (more content not included)... [facility] 04-22-2023 Miscellaneous Notes 04-22....Patient is currently in rehab,Cancelled his appointment on 05-03, will call to r/s later any questions call Atif Ferraro [phone] [place] documented in this encounter [facility] 04-21-2023 Note HNO ID: [id number] Author: Lex Posada RN Service: ? Author [...] Posada RN April 21, 2023 7:05 PM [facility] 04-21-2023 History of Present illness Narrative [...] 2:37 PM documented in this encounter [facility] 04-20-2023 Note HNO ID: [id number] Author: Lex Posada RN Service: ? Author [...] Posada RN April 20, 2023 2:37 PM [facility] 04-20-2023 Note Patient Outreach (AM BCMG) STEPH BAUMANN ([id number]) 1950 Date Time Provider Department 04/20/23 LEX [...] Rash and ot (more content not included)... [facility] 04-13-2023 Miscellaneous Notes Spoke with Atif [...] to help care for him. Pt has [facility] PT and OT ordered but has not [...] office for review. Please call Atif at [phone]. documented in this encounter [facility] 04-12-2023 Note HNO ID: [id number] Author: Olga Styles APRN.FINANCIAL SERVICES ASSISTANT Service: ? Author Type: Nurse Specialist Type: [...] he is feeling well overall. Following with [facility] re: CAD s/p STEMI, diastolic [...] Noted he was unable to travel to [place] or [place] so he was instead seen at [facility] by Dr. Abreu. Diagnosed with prostate cancer, treatment with radiation planned; has begun the process for this; procedure earlier today at [facility]. Notes he had procedure yesterday at [facility] cancer Center [facility] for prostate cancer. Without report of [...] dose of insulin. He was admitted to [facility] on April 10, 2023 through April 12, 2023 for adult failure to thrive. He presented with report of getting weaker and more debilitated at home and also feeling dehydrated. EMS was called for transport and thought he was confused initially. CT of the brain was completed and showed no acute pathology. PT and OT was (more content not included)... [facility] 04-12-2023 Miscellaneous Notes Patient seen today [...] Pt is supposed to be dc'd from [facility] on 04/12. Call Jasmyne with dr's VO. Reina Mcgee LPN documented in this encounter [facility] 04-12-2023 Instructions Olga Styles APRN.CNS - 04/12/2023 [...] concerning symptoms documented in this encounter [facility] 04-12-2023 History of Present illness Narrative SUBJECTIVE: [...] Noted he was unable to travel to [place] or [place] so he was instead seen at [facility] by Dr. Abreu. Diagnosed with prostate cancer, treatment with radiation planned; has begun the process for this; procedure earlier today at [facility]. Notes he had procedure yesterday at [facility] cancer Center [facility] for prostate cancer. Without report of [...] dose of insulin. He was admitted to [facility] on April 10, 2023 through April 12, [...] [address] Horton neurologist [facility]. He has a neurology appointment tomorrow, states may adjust medications at that visit. Home health care:[facility], to come out tomorrow Assistance at [...] Metformin Diarrhea Even low dose caused diarrhea Pritchett [Hydrocodone-* Intolerance Hallucination Medications traMADol (ULTRAM) 50 [...] - 4.00 k/uL 0.60 (L) 0.79 (L) Gallia% % 12.7 6.7 Abs Gallia <0.87 k/uL 0.72 0.60 Eosin% % 4.1 [...] R62.7 He was seen in observation at [facility]. Advised half-way facility at discharge however declined and discharged to home with home health care. Presents in clinic unable to stand without assistance and difficulty staying awake. He is hypotensive. 4. Type 2 diabetes mellitus with other specified complication, with long-term current use of insulin ([facility]) - ICD9: 250.80, V58.67, ICD10: E11.69, Z79.4 Has had improved control of late. 5. Paroxysmal atrial fibrillation (HCC) - ICD9: 427.31, ICD10: I48.0 Followed by [facility]. On oral anticoagulation. 6. Chronic diastolic CHF (congestive heart failure) ([facility]) - ICD9: 428.32, 428.0, ICD10: I50.32 Followed [...] 1 -2 week follow up Olga Styles APRN.FINANCIAL SERVICES ASSISTANT Endorse SO not leave unattended until feeling improved. Olga Styles APRN.FINANCIAL SERVICES ASSISTANT Medical Decision Making: Problems: Moderate: New problem with uncertain prognosis and Acute illness with systemic symptoms Risk: Moderate: Drug management Medical Decision Making Level: 4 - Moderate documented in this encounter [facility] 04-11-2023 Miscellaneous Notes Message left for Atif Ferraro () to call to update concerning the letter being in Medical records to be picked up. 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 )please advise [phone]. Patient has been identified by name and birthdate. Duration of symptoms: N/A Person calling: caregiver: atif ferraro Call patient at: on cell [phone] (home) [phone] (cell) Was an appointment scheduled: No Closing statement: Results or non-symptom based questions: Thank you for calling [facility], your call will be returned within the next business day. Mckenna Deluna Pss documented in this encounter [facility] 04-11-2023 Miscellaneous Notes Faxed current med list to [facility] med/surg per request. Fax # [phone]. Confirmation received. documented in this encounter [facility] 03-24-2023 Note HNO ID: [id number] Author: Lex Posada RN Service: ? Author [...] Posada RN March 24, 2023 4:03 PM [facility] 03-24-2023 Note Patient Outreach (AM BC) STEPH BAUMANN ([id number]) 1950 [place]anne Date Time Provider Department 03/24/23 [...] anticoagulation [Z79.01] 02/24/2017 Pulmonary hypertension, secondary (HCC) [[id number]*03/10/2017 Typical atrial flutter (HCC) [I48.3] 04/13/2017 ALBINO (obstructive sleep apnea) [G47.33] H/O: stroke [Z86.73] 11/07/2010 H/O brain (more content not included)... [facility] 03-23-2023 Note HNO ID: [id number] Author: Manuel Beebe MD Service: ? Author [...] HENT: Head: Nor (more content not included)... [facility] 03-23-2023 History of Present illness Narrative This note was created using MediaXstream[employer]. Subjective Steph Baumann is a 72 year [...] Manuel Beebe MD documented in this encounter [facility] 03-15-2023 Miscellaneous Notes Called patient and left [...] results. Agata documented in this encounter [facility] 03-15-2023 Miscellaneous Notes Results reviewed. See phone encounter dated 03/09/23. Netta Espinal RN March 15, 2023 11:08 AM 03/11/23 Patient calling for lab results, If you can call his caregiver, Atif, Agata documented in this encounter [facility] 03-09-2023 Note HNO ID: [id number] Author: Home Loredo MD Service: ? Author [...] - Patient to discuss starting carvedilol with deputy grand jury (ideally 6.25mg PO BID). Patient will also [...] after CMP is available Home Loredo MD [facility] 03-09-2023 History of Present illness Narrative [...] - Patient to discuss starting carvedilol with deputy grand jury (ideally 6.25mg PO BID). Patient will also [...] Loredo MD documented in this encounter [facility] 02-25-2023 Note HNO ID: [id number] Author: Lex Posada RN Service: ? Author [...] Posada RN February 25, 2023 1:37 PM [facility] 02-25-2023 Note Patient Outreach (AM BC) STEPH BAUMANN ([id number]) 1950 M Date Time Provider Department 02/25/23 [...] anticoagulation [Z79.01] 02/24/2017 Pulmonary hypertension, secondary (HCC) [[id number]*03/10/2017 Typical atrial flutter (HCC) [I48.3] 04/13/2017 ALBINO (obstructive sleep apnea) [G47.33] H/O: stroke [Z86.73] 11/07/2010 H/O brain tumor [Z87.898] Controlled type 2 diabetes mellitus without com*10/07/2017 Stasis edema of both lower extremities [I87.303]04/23/2018 Chronic diastolic CHF (congestive heart failure*08/25/2018 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 [facility] 02-25-2023 History of Present illness Narrative CDM Telephonic Outreach Provider Action/FYI CDM: CHF, Asthma Called Pt, unable to leave a message to verify symptom status and needs. Contacted for: Routine Telephonic Outreach Contact made with patient: No, unable to leave message. Will reattempt call Lex Posada RN February 25, 2023 1:37 PM documented in this encounter [facility] 02-09-2023 Note HNO ID: [id number] Author: Lex Posada RN Service: ? Author [...] Posada RN February 09, 2023 5:30 PM [facility] 02-09-2023 History of Present illness Narrative CECILIO [...] 5:30 PM documented in this encounter [facility] 02-09-2023 Note Patient Outreach (AM BC) STEPH BAUMANN ([id number]) 1950 Date Time Provider Department 02/09/23 LEX [...] anticoagulation [Z79.01] 02/24/2017 Pulmonary hypertension, secondary (HCC) [[id number]*03/10/2017 Typical atrial flutter (HCC) [I48.3] 04/13/2017 ALBINO (obstructive sleep apnea) [G47.33] H/O: stroke [Z86.73] 11/07/2010 H/O brain tumor [Z87.898] Controlled type 2 diabetes mellitus without com*10/07/2017 Stasis edema of both lower extremities [I87.303]04/23/2018 Chronic diastolic CHF (congestive heart shailesh (more content not included)... [facility] 02-02-2023 Note HNO ID: [id number] Author: Lex Posada RN Service: ? Author [...] Posada RN February 02, 2023 5:19 PM [facility] 02-02-2023 History of Present illness Narrative INSIGHT [...] 5:19 PM documented in this encounter [facility] 02-02-2023 Note Patient Outreach (AM [facility]) STEPH BAUMANN ([id number]) 1950 M Date Time Provider Department 02/02/23 [...] anticoagulation [Z79.01] 02/24/2017 Pulmonary hypertension, secondary (HCC) [[id number]*03/10/2017 Typical atrial flutter (HCC) [I48.3] 04/13/2017 ALBINO (obstructive sleep apnea) [G47.33] H/O: stroke [Z86.73] 11/07/2010 H/O brain tumor [Z87.898] Controlled type 2 diabetes mellitus without com*10/07/2017 Stasis edema of both lower extremities [I87.303]04/23/2018 Chronic diastolic CHF (congestive heart failur (more content not included)... [facility] 01-04-2023 Note HNO ID: [id number] Author: Lex Posada RN Service: ? Author [...] Posada RN January 04, 2023 5:08 PM [facility] 01-04-2023 History of Present illness Narrative CECILIO [...] 5:08 PM documented in this encounter [facility] 01-04-2023 Note Patient Outreach (AM BCMG) STEPH BAUMANN ([id number]) 1950 Date Time Provider Department 01/04/23 LEX [...] anticoagulation [Z79.01] 02/24/2017 Pulmonary hypertension, secondary (HCC) [[id number]*03/10/2017 Typical atrial flutter (HCC) [I48.3] 04/13/2017 ALBINO (obstructive sleep apnea) [G47.33] H/O: stroke [Z86.73] 11/07/2010 H/O brain tumor [Z87.898] Controlled type 2 diabetes mellitus without com*10/07/2017 Stasis edema of both lower extremities [I87.303]04/23/2018 Chronic diastolic CHF (congestive heart f (more content not included)... [facility] 01-03-2023 Note HNO ID: [id number] Author: Lex Posada RN Service: ? Author Type: Registered Nurse Type: Progress Notes Filed: 02/02/2023 5:18 PM Note Text: [facility]ECILIO [facility] TELEPHONIC OUTREACH Provider Action/FYI: CDM: CHF, [...] Posada RN January 03, 2023 10:10 AM [facility] 01-03-2023 History of Present illness Narrative INSIGHT [facility] TELEPHONIC OUTREACH Provider Action/FYI: CDM: CHF, [...] 12:26 PM documented in this encounter [facility] 12-30-2022 Note HNO ID: [id number] Author: Lex Posada RN Service: ? Author [...] Posada RN December 30, 2022 12:26 PM [facility] 12-30-2022 Note Patient Outreach (AM BCMG) STEPH BAUMANN ([id number]) 1950 Date Time Provider Department 12/30/22 LEX POSADA During your visit today, we recorded the following information about you: Lex Posada RN 02/02/2023 5:18 PM Addendum [facility]ECILIO [facility] TELEPHONIC OUTREACH Provider Action/FYI: CDM: CHF, [...] CVA (cerebrovascular acci (more content not included)... [facility] 12-22-2022 Miscellaneous Notes Okayed Patient has [...] Deluna Pss documented in this encounter [facility] 11-24-2022 History of Present illness Narrative INSIGHT [...] 10:20 AM documented in this encounter [facility] 10-19-2022 History of Present illness Narrative CECILIO [facility] TELEPHONIC OUTREACH Provider Action/FYI: CDM: CHF [...] my name is Lex Posada RN your Information Assurance Manager from the [facility] I am calling today for your bi-weekly [...] 9:58 AM documented in this encounter [facility] 10-04-2022 Miscellaneous Notes Received diabetic supply orders from [facility] [employer] . Confirmed with patient, he does not not use this company and buys supplies out of pocket. Disregard future requests. documented in this encounter [facility] 09-15-2022 History of Present illness Narrative INSIGHT CDM TELEPHONIC OUTREACH Provider Action/FYI: Called Pt left a message to verify CHF/ Asthma or other symptoms and needs. Contact made with patient: No - Left message Rosaregis my name is Lex Posada RN your Information Assurance Manager from the [facility] I am calling today for your bi-weekly [...] 1:24 PM documented in this encounter [facility] 09-02-2022 Instructions Margareth Rivas MD - 09/02/2022 12:11 PM EDT Thank you for coming to your visit with Dr. Loredo. Below are some of the things we discussed: Please discuss with your deputy grand jury the followin) Starting carvedilol 2 times per [...] 6 months. documented in this encounter [facility] 09-02-2022 History of Present illness Narrative HEPATOLOGY [...] - Patient to discuss starting carvedilol with deputy grand jury (ideally 6.25mg PO BID). Patient will also [...] Loredo MD documented in this encounter [facility] 08-13-2022 History of Present illness Narrative INSIGHT CDM TELEPHONIC OUTREACH Provider Action/FYI: Call to Pt, left a message to verify CHF/ Asthma and other symptom status and needs. Contact made with patient: No - Left message Rosalo my name is Lex Posada RN your Information Assurance Manager from the [facility] I am calling today for your bi-weekly [...] 3:13 PM documented in this encounter [facility] 07-29-2022 Miscellaneous Notes Note and letter faxed to [facility][Note 2] and patient notified. However patient states that [...] power operated chair. Please send this to [facility][Note 2] at fax # [phone] and office number is [phone] Electronically signed by Jessica [facility] at 07/20/2022 10:59 AM EDT Called [facility] this is correct. They just need a prescription for this and then taxes will be voided. Do not know how to enter this to come up this way. Atif Ferraro called back with the phone and fax for [facility][Note 2]: Atif can be reached at [phone]. Atif Ferraro called in and was reporting that Pt is still having mobility issues from when he fractured his hip in February. She was looking at the [employer] Mobility Scooter at [facility][Note 2]. She reports if a provider writes a letter for the Pt then they can get the tax paid for. She states the scooter is $2300, but the Pt is scared of falling and with this one he would be able to use it in his apartment. Please call her back and advise. documented in this encounter [facility] 07-20-2022 Miscellaneous Notes Patient unable to make [...] pm Please call Atif, his caregiver at [phone] Electronically signed by Jessica Xiong [facility] at 07/20/2022 11:17 AM EDT documented in this encounter [facility] 06-24-2022 History of Present illness Narrative INSIGHT CDM TELEPHONIC OUTREACH Provider Action/FYI: Call to Pt, left a message to verify CHF/ Asthma symptoms, and post Rehab status. Contact made with patient: No - Left message Scout my name is Lex Posada RN your Information Assurance Manager from the [facility] I am calling today for your bi-weekly check in. I am sorry I missed your call. I will reach out to you again tomorrow. (if the third call I will reach out to you again next week) Enter next patient outreach date for the following business day using the Track Pt Outreach. End outreach. Lex Posdaa RN June 24, 2022 11:38 AM INSIGHT [...] 1:29 PM documented in this encounter [facility] 06-15-2022 History of Present illness Narrative [facility] [address] [facility] [address] [facility] [id number] Stephhortensia Baumann is a 72 y.o. male [...] Munira Dickerson MD documented in this encounter [facility] 06-15-2022 Miscellaneous Notes LM notifying Lexx Okay ondinart Lexx from [facility] calling recert for PT, plan of care 2 visits weekly for 3 weeks working on fall prevention. Patient was recently in [facility] ER for high blood sugars. documented in this encounter [facility] 2022 History of Present illness Narrative INSIGHT [facility] TELEPHONIC OUTREACH Provider Action/FYI: Call to [...] my name is Lex Posada RN your Information Assurance Manager from the [facility] I am calling today for your bi-weekly [...] 11:27 AM documented in this encounter [facility] 05-20-2022 History of Present illness Narrative [facility] TELEPHONIC OUTREACH Provider Action/FYI: Call to Pt left a message to verify CHF/ Asthma symptoms or needs. Contact made with patient: No - Left message Scout my name is Lex Posada RN your Information Assurance Manager from the [facility] I am calling today for your bi-weekly check in. I am sorry I missed your call. I will reach out to you again tomorrow. (if the third call I will reach out to you again next week) Enter next patient outreach date for the following business day using the Track Pt Outreach. End outreach. Lex Posada RN May 20, 2022 1:55 PM [facility] TELEPHONIC OUTREACH Provider Action/FYI: Call to Pt left a message to verify CHF/ Asthma symptoms or needs. Contact made with patient: No - Left message Scout my name is Lex Posada RN your Information Assurance Manager from the [facility] I am calling today for your bi-weekly [...] 9:09 AM documented in this encounter [facility] 05-19-2022 Miscellaneous Notes Okayed Patient calling back, he and his POA confirmed they have called [facility] directly. Electronically signed by Jessica Xiong [facility] [place] [facility] at 05/19/2022 12:46 PM EDT Patient has [...] a message that he needs to call [facility] and re-establish his account with them since his POA put the account on hold while he was at a rehab facillity/hospital. Patient aware RX will be sent to pharmacy. No need to notify patient. Megan Rosales Pss documented in this encounter [facility] 05-18-2022 History of Present illness Narrative [facility] [address] ([address]) [facility] [address] [facility] [id number] Steph Baumann is a 71 y.o. [...] requiring operative repair, right, closed, initial encounter ([facility]) 2. Low back pain without sciatica, unspecified back pain laterality, unspecified chronicity Return in about 4 weeks (around 06/15/2022). Munira Dickerson MD documented in this encounter [facility] 05-13-2022 Miscellaneous Notes Friend Atif notified that handipcap mika is ready for sweet pickled fruit maker in medical records and she verbalized understanding ok Friend (Atif) calls to request a prescription for a handicap placard d/t patient receiving a letter from [facility] stating he needs an updated order. Pended per request. Atif will sweet pickled fruit maker in medical records when ready and requests calling her at [phone]. Cyndee Hill RN documented in this encounter [facility] 05-04-2022 Miscellaneous Notes Sent request to Medical Records at [facility] to send over Medication list from [facility]. Having them send to fax # [phone]. Atif returns call after speaking with patient. [...] behalf of patient. Patient was seen in [facility] ER for chest pain. Patient was worked up in the ER. Per Atif ER thinks it is more anxiety than cardiac. While on TCU patient was prescribed something for anxiety. Atif asking if provider can send in a prescription to help with anxiety to [facility] pharmacy? Please review and advise, Samina Watt RN documented in this encounter [facility] 04-21-2022 History of Present illness Narrative INSIGHT [...] like to speak with a social work senior project leader/team lead to help give you support for any [...] you up for automated weekly questionnaires through [employer]. This is an easy way for us [...] 1:16 PM documented in this encounter [facility] 04-16-2022 History of Present illness Narrative Primary Care Pharmacy Visit REASON FOR CONSULT: DM GOALS: A1c < 8% CONSULTING PROVIDER: Olga Styles APRN.FINANCIAL SERVICES ASSISTANT Date of Consult: 01/08/22 Steph Baumann is a 71 year old male presenting for follow up visit by telephone. Patient consents to pharmacy collaborative practice agreement. Last seen by Olga Styles APRN.FINANCIAL SERVICES ASSISTANT on 01/12/22. At last FINANCIAL SERVICES ASSISTANT appt, patient was encouraged to follow up with [facility]. At that visit provider also noted that spironolactone was stopped, and bumex dose decreased due to hypotension, was encouraged to recheck BMP. At PharmD visit on 02/02/22, blood sugar testing supplies were ordered, and clarified medication discrepancies with cardiology. INTERIM HISTORY: Since last visit, patient had hip fracture and was following at [facility]. Discharged home on 04/14 Patient reports [...] not present. Adherence: denies missed doses. Pharmacy: [facility] Diabetes supplies: SmartRx System: ACTIVE PROBLEM LIST Brain Tumor (Hcc) [...] Metformin Diarrhea Even low dose caused diarrhea Pritchett [Hydrocodone-* Intolerance Hallucination Current Outpatient Medications Medication [...] TG 93 03/26/2021 The ASCVD Risk score (Augustagianna COWART Jr., et al., 2013) failed to calculate for the following reasons: The patient has a prior [place] or stroke diagnosis Albumin/Creat Ratio (mg/g) Date Value 11/06/2019 24 PHARMACOTHERAPY ASSESSMENT/PLAN: 1. Controlled type 2 diabetes mellitus without complication, with long-term current use of insulin ([facility]) - ICD9: 250.00, V58.67, ICD10: E11.9, Z79.4 [...] Lara PharmD, BCACP Primary Care Clinical Pharmacist [facility] The majority of the pharmacy visit (> 50%) was spent counseling and/or coordinating care for the patient. [Telephonic] time was 16 minutes. documented in this encounter [facility] 04-08-2022 Miscellaneous Notes Order called back to [facility]. Will follow Jasmyne from [facility] reports pt will be discharging from TCU at [facility] on 04/14/22 following a right hip fx. Will need nursing & PT, will pcp follow? Kayleigh Hummel LPN documented in this encounter [facility] 04-06-2022 History of Present illness Narrative PRIMARY CARE COORDINATION QUICK NOTE Provider Action/FYI Routed update to Dr. Beebe Sphortensia with Pt he anticipates to be discharged to home from [facility] on 04/14/22, Instructed to schedule follow up Appt with Dr. Beebe/ Olga Styles, he verbalized understanding and appreciation for the follow-up. Patient identified by name and date . Lex Posada RN April 06, 2022 4:15 PM documented in this encounter [facility] 04-01-2022 Miscellaneous Notes Noted, will follow up with patient at scheduled visit time. Jana Lara, RachD, BCACP Primary Care Clinical Pharmacist [facility] Atif returned your call. [facility] doing [facility]. Tentative discharge date is 04/14/22 and a follow up appointment has been scheduled for 04/16. If there are any issues or concerns, please call Atif at [phone]. Samina Smith Patient cancelled last pharmacy visit and is due for diabetes follow up to review blood sugars. Called and spoke with patient to offer pharmacy visit. Patient states he relies on caregiver Atif to make appts. Called and Left voicemail for Atif asking to return call to [phone] to schedule pharmacy visit. Rach KothariD, BCACP Primary Care Clinical Pharmacist [facility] documented in this encounter [facility] 03-26-2022 History of Present illness Narrative noted, monitor for discharge to SNF/home. Obtain records when available. [facility] TELEPHONIC OUTREACH Provider Action/FYI: Routed update to Dr. Beebe- No Action required Spk with Pt he reported fall with fracture of Right Hip, he noted surgical repair, is currently at [facility], undetermined Length of Stay. Contact [...] RN March 26, 2022 2:33 PM [facility] TELEPHONIC OUTREACH Provider Action/FYI: Call to Pt to verify symptom status and needs. Contact made with patient: No - Left message Hello my name is Lex Posada RN your Information Assurance Manager from the [facility] I am calling today for your bi-weekly [...] 4:41 PM documented in this encounter [facility] 03-23-2022 History of Present illness Narrative [facility] [address] ([address]) [facility] [address] [facility] [id number] Steph Baumann is a 71 y.o. male [...] No periprosthetic fractures. Intact right hip replacement. [facility] Workstation ID: [id number] 1. Hip fracture requiring operative repair, right, closed, initial encounter ([facility]) 2. Low back pain without sciatica, unspecified back pain laterality, unspecified chronicity Return for post mri. Munira Dickerson MD documented in this encounter [facility] 03-16-2022 History of Present illness Narrative INSIGHT [facility] TELEPHONIC OUTREACH Provider Action/FYI: Call to Pt left a message to verify CHF/ Asthma symptom status and needs Contact made with patient: No - Left message Hello my name is Lex Posada RN your Information Assurance Manager from the [facility] I am calling today for your bi-weekly check in. I am sorry I missed your call. I will reach out to you again tomorrow. (if the third call I will reach out to you again next week) Enter next patient outreach date for the following business day using the Track Pt Outreach. End outreach. Lex Posdaa RN March 16, 2022 4:30 PM [facility] TELEPHONIC OUTREACH Provider Action/FYI: Call to Pt left a message to verify CHF/ Asthma symptom status and needs Contact made with patient: No - Left message Scout my name is Lex Posada RN your Information Assurance Manager from the [facility] I am calling today for your bi-weekly [...] 1:51 PM documented in this encounter [facility] 03-03-2022 History of Present illness Narrative INSIGHT [facility] TELEPHONIC OUTREACH Provider Action/FYI: Call to Pt left a message to verify CHF/ Asthma symptoms and needs. Contact made with patient: No - Left message Hello my name is Lex Posada RN your Information Assurance Manager from the [facility] I am calling today for your bi-weekly [...] 11:16 AM documented in this encounter [facility] 02-24-2022 History of Present illness Narrative WILBER FROM [facility] CALLED STATING THERE WAS SOME ISSUES IN [...] FOR 4 WEEKS. documented in this encounter [facility] 02-22-2022 History of Present illness Narrative INSIGHT [facility] TELEPHONIC OUTREACH Provider Action/FYI: Call to Pt left a message to verify CHF / Asthma or other symptoms. Contact made with patient: No - Left message Rosalo my name is Lex Posada RN your Information Assurance Manager from the [facility] I am calling today for your bi-weekly [...] 9:13 AM documented in this encounter [facility] 02-12-2022 Miscellaneous Notes Appt cancelled per patient request. Jana Lara, PharmD, BCACP Primary Care Clinical Pharmacist [facility] [place], monitor for discharge and reschedule as appropriate. PEDRO Samuel for pt called to let you know pt fell on 02-09-22 and fractured his hip. Was at [facility] then transferred to [facility]. He is still there as of 02-12-22 and not sure what is going to be done next. He has an phone apt scheduled with you Jana on 02-16-22 and they are cancelling this for now. If you want you can reach Atif Ferraro at [phone]. Sending to PCP as FYI. Jazmin Tejeda LPN documented in this encounter [facility] 02-05-2022 History of Present illness Narrative [facility] TELEPHONIC OUTREACH Provider Action/FYI: Call to Pt left a message to verify CHF/ Asthma symptom status. Contact made with patient: No - Left message Hello my name is Lex Posada RN your Information Assurance Manager from the [facility] I am calling today for your bi-weekly check in. I am sorry I missed your call. I will reach out to you again tomorrow. (if the third call I will reach out to you again next week) Enter next patient outreach date for the following business day using the Track Pt Outreach. End outreach. Lex Posada RN February 05, 2022 4:26 PM [facility] TELEPHONIC OUTREACH Provider Action/FYI: Call to Pt left a message to verify CHF/ Asthma symptom status. 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 Was only given lancets [...] LARA, PharmD, BCACP Primary Care Clinical Pharmacist [facility] documented in this encounter [facility] 02-02-2022 Miscellaneous Notes Khoi is asking for [...] Mcgee LPN documented in this encounter [facility] 02-02-2022 History of Present illness Narrative Primary [...] a pharmacist. Last seen by Olga Styles APRN.FINANCIAL SERVICES ASSISTANT on 01/12/22. At last FINANCIAL SERVICES ASSISTANT appt, patient was encouraged to follow up [...] not present. Adherence: denies missed doses. Pharmacy: [facility] Diabetes supplies: Smart[facility] System: ACTIVE PROBLEM LIST Brain Tumor (Hcc) [...] Metformin Diarrhea Even low dose caused diarrhea Pritchett [Hydrocodone-* Intolerance Hallucination Medication List Medication Directions [...] following reasons: The patient has a prior IN or stroke diagnosis Albumin/Creat Ratio (mg/g) Date [...] medications. Will contact external cardiology provider - [facility] for clarification. See telephone encounter for medication clarification Follow up: Patient is scheduled to see PCP on 03/29/22. Patient to follow up with PharmD on 02/16/22. Patient verbalized understanding of instructions. Jana Lara, Butch, BCACP Primary Care Clinical Pharmacist [facility] The majority of the pharmacy visit (> 50%) was spent counseling and/or coordinating care for the patient. [Face to Face] time was 57 minutes. documented in this encounter [facility] 05-16-2021 Miscellaneous Notes Below noted. Grateful for [...] (158 lb) 09/28/2019 82.6 kg (182 lb) [facility]- reports patient's weight is 147 pounds today. She believes patient may have lost 30 pounds since January. Our weight checks: 6-21: 151 # 04-03-21: 148 # 02-13-21: 152 # 3-21: 173 # 05-28-: 171 # documented in this encounter [facility] documented as of this encounter (statuses as of 10/04/2022) [facility]-26-2021 History of Past illness Narrative* Problem Noted [...] of this encounter (statuses as of 10/11/2022) [facility] History of Past illness Narrative* Problem Noted [...] of this encounter (statuses as of 10/19/2022) [facility] History of Past illness Narrative* Problem Noted [...] of this encounter (statuses as of 11/24/2022) [facility] History of Past illness Narrative* Problem Noted [...] of this encounter (statuses as of 12/23/2022) [facility] History of Past illness Narrative* Problem Noted [...] of this encounter (statuses as of 01/03/2023) [facility] History of Past illness Narrative* Problem Noted [...] of this encounter (statuses as of 01/05/2023) [facility] History of Past illness Narrative* Problem Noted [...] of this encounter (statuses as of 02/02/2023) [facility] History of Past illness Narrative* Problem Noted [...] of this encounter (statuses as of 02/10/2023) [facility] History of Past illness Narrative* Problem Noted [...] of this encounter (statuses as of 02/25/2023) [facility] History of Past illness Narrative* Problem Noted [...] of this encounter (statuses as of 03/10/2023) [facility] History of Past illness Narrative* Problem Noted [...] of this encounter (statuses as of 03/10/2023) [facility] History of Past illness Narrative* Problem Noted [...] of this encounter (statuses as of 03/15/2023) [facility] History of Past illness Narrative* Problem Noted [...] of this encounter (statuses as of 04/11/2023) [facility] History of Past illness Narrative* Problem Noted [...] of this encounter (statuses as of 04/12/2023) [facility] History of Past illness Narrative* Problem Noted [...] of this encounter (statuses as of 04/13/2023) [facility] History of Past illness Narrative* Problem Noted [...] of this encounter (statuses as of 04/13/2023) [facility] History of Past illness Narrative* Problem Noted [...] of this encounter (statuses as of 04/13/2023) [facility] History of Past illness Narrative* Problem Noted [...] of this encounter (statuses as of 04/22/2023) [facility] History of Past illness Narrative* Problem Noted [...] of this encounter (statuses as of 04/25/2023) [facility] History of Past illness Narrative* Problem Noted [...] of this encounter (statuses as of 06/28/2023) [facility] History of Past illness Narrative* Problem Noted [...] of this encounter (statuses as of 07/22/2023) [facility] History of Past illness Narrative* Problem Noted [...] of this encounter (statuses as of 08/13/2023) [facility] History of Past illness Narrative* Problem Noted [...] of this encounter (statuses as of 09/06/2023) [facility] History of Past illness Narrative* Problem Noted [...] of this encounter (statuses as of 09/15/2023) [facility] History of Past illness Narrative* Problem Noted [...] of this encounter (statuses as of 09/15/2023) [facility] History of Past illness Narrative* Problem Noted [...] of this encounter (statuses as of 09/21/2023) [facility] History of Past illness Narrative* Problem Noted [...] of this encounter (statuses as of 09/23/2023) [facility] History of Past illness Narrative* Problem Noted [...] of this encounter (statuses as of 09/30/2023) [facility] of Past illness Narrative* Problem Noted [...] of this encounter (statuses as of 12/13/2023) [facility] History of Past illness Narrative* Problem Noted [...] of this encounter (statuses as of 12/20/2023) [facility] History of Past illness Narrative* Problem Noted [...] of this encounter (statuses as of 12/22/2023) [facility] History of Past illness Narrative* Problem Noted [...] of this encounter (statuses as of 12/22/2023) [facility] History of Past illness Narrative* Problem Noted [...] of this encounter (statuses as of 12/27/2023) [facility] History of Past illness Narrative* Problem Noted [...] of this encounter (statuses as of 02/02/2022) [facility] of Past [facility] Narrative* Problem Noted [...] of this encounter (statuses as of 02/03/2022) [facility] of [facility] Narrative* Problem Noted [...] of this encounter (statuses as of 02/05/2022) [facility] Narrative* Problem Noted [...] of this encounter (statuses as of 02/09/2022) [facility] Narrative* Problem Noted [...] of this encounter (statuses as of 02/15/2022) [facility] Narrative* Problem Noted [...] of this encounter (statuses as of 02/24/2022) [facility] of [facility] Narrative* Problem Noted [...] of this encounter (statuses as of 02/26/2022) [facility] Narrative* Problem Noted [...] of this encounter (statuses as of 03/05/2022) [facility] of [facility] Narrative* Problem Noted [...] of this encounter (statuses as of 03/16/2022) [facility] of [facility] Narrative* Problem Noted [...] of this encounter (statuses as of 03/26/2022) [facility] of Past [facility] Narrative* Problem Noted [...] of this encounter (statuses as of 04/01/2022) [facility] of Past [facility] Narrative* Problem Noted [...] of this encounter (statuses as of 04/06/2022) [facility] of [facility] Narrative* Problem Noted [...] of this encounter (statuses as of 04/08/2022) [facility] of [facility] Narrative* Problem Noted [...] of this encounter (statuses as of 04/16/2022) [facility] of [facility] Narrative* Problem Noted [...] of this encounter (statuses as of 04/23/2022) [facility] of Past [facility] Narrative* Problem Noted [...] of this encounter (statuses as of 05/04/2022) [facility] of Past [facility] Narrative* Problem Noted [...] of this encounter (statuses as of 05/13/2022) [facility] of Past [facility] Narrative* Problem Noted [...] of this encounter (statuses as of 05/19/2022) [facility] Narrative* Problem Noted [...] of this encounter (statuses as of 05/20/2022) [facility] of Past [facility] Narrative* Problem Noted [...] of this encounter (statuses as of 2022) [facility] of [facility] Narrative* Problem Noted [...] of this encounter (statuses as of 06/15/2022) [facility] of [facility] Narrative* Problem Noted [...] of this encounter (statuses as of 06/24/2022) [facility] of Past [facility] Narrative* Problem Noted [...] of this encounter (statuses as of 07/22/2022) [facility] of [facility] Narrative* Problem Noted [...] of this encounter (statuses as of 07/29/2022) [facility] Narrative* Problem Noted [...] of this encounter (statuses as of 08/13/2022) [facility] of [facility] Narrative* Problem Noted [...] of this encounter (statuses as of 09/02/2022) [facility] of Past [facility] Narrative* Problem Noted [...] of this encounter (statuses as of 09/03/2022) [facility] of Past [facility] Narrative* Problem Noted [...] of this encounter (statuses as of 09/06/2022) [facility] of [facility] Narrative* Problem Noted [...] of this encounter (statuses as of 09/15/2022) [facility] of [facility] Narrative* Problem Noted [...] of this encounter (statuses as of 09/17/2022) [facility] of Past [facility] Narrative* Problem Noted [...] of this encounter (statuses as of 09/17/2022) [facility] note* Diagnosis Controlled type 2 diabetes mellitus without complication, with long-term current use of insulin (HCC) documented in this encounter [facility] note* Diagnosis Controlled type 2 diabetes mellitus without complication, with long-term current use of insulin (HCC)- Primary documented in this encounter [facility] note* Diagnosis Controlled type 2 diabetes mellitus without complication, with long-term current use of insulin (HCC)- Primary Medication management Encounter for long-term (current) use of other medications documented in this encounter [facility] note* Diagnosis Hip fracture requiring operative repair, right, closed, initial encounter ([facility])- Primary Status post hip hemiarthroplasty documented in this encounter [facility] note* Diagnosis Pain- Primary Generalized pain documented in this encounter [facility] note* Diagnosis Pain- Primary Generalized pain documented in this encounter [facility] note* Diagnosis Hip fracture requiring operative repair, right, closed, initial encounter ([facility])- Primary Low back pain without sciatica, unspecified back pain laterality, unspecified chronicity documented in this encounter [facility] note* Diagnosis Low back pain without sciatica, unspecified back pain laterality, unspecified chronicity- Primary documented in this encounter [facility] note* Diagnosis Controlled type 2 diabetes mellitus without complication, with long-term current use of insulin (HCC)- Primary documented in this encounter [facility] note* Diagnosis Brain tumor (HCC)- Primary Neoplasm of unspecified nature of brain Moderate persistent asthma without complication Unspecified asthma Chronic diastolic CHF (congestive heart failure) (HCC) Chronic diastolic heart failure documented in this encounter [facility] note* Diagnosis Hip fracture requiring operative repair, right, closed, initial encounter ([facility])- Primary Low back pain without sciatica, unspecified back pain laterality, unspecified chronicity documented in this encounter [facility] note* Diagnosis Controlled type 2 diabetes mellitus without complication, with long-term current use of insulin (HCC) Essential hypertension, benign documented in this encounter [facility] note* Diagnosis Hip fracture requiring operative repair, right, closed, initial encounter ([facility])- Primary Status post hip hemiarthroplasty documented in this encounter [facility] note* Diagnosis Status post hip hemiarthroplasty- Primary documented in this encounter [facility] note* Diagnosis Status post hip hemiarthroplasty- Primary documented in this encounter [facility] note* Diagnosis Liver disease- Primary Unspecified disorder of liver documented in this encounter [facility] note* Diagnosis Liver disease Unspecified disorder of liver documented in this encounter [facility] note* Diagnosis Tobacco abuse Tobacco use disorder documented in this encounter [facility] note* Diagnosis Rash Rash and other nonspecific skin eruption documented in this encounter [facility] note* Diagnosis Liver disease- Primary Unspecified disorder of liver Other cirrhosis of liver (HCC) documented in this encounter [facility] note* Diagnosis Liver disease Unspecified disorder of liver documented in this encounter [facility] note* Diagnosis Hypotension due to drugs- Primary Other iatrogenic hypotension Nausea Nausea alone Adult failure to thrive Type 2 diabetes mellitus with other specified complication, with long-term current use of insulin (HCC) Paroxysmal atrial fibrillation (HCC) Atrial fibrillation Chronic diastolic CHF (congestive heart failure) (HCC) Chronic diastolic heart failure Parkinson's disease (HCC) Paralysis agitans documented in this encounter [facility] note* Diagnosis Controlled type 2 diabetes mellitus without complication, with long-term current use of insulin (HCC)- Primary Essential hypertension, benign 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 Moderate persistent asthma without complication Unspecified asthma Cirrhosis of liver with ascites, unspecified hepatic cirrhosis type (HCC) documented in this encounter [facility] note* Diagnosis Chronic diastolic CHF (congestive heart failure) (HCC)- Primary Chronic diastolic heart failure documented in this encounter [facility] note* Diagnosis Prostate cancer (HCC)- Primary Malignant neoplasm of prostate 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) Malignant neoplasm of prostate documented in this encounter [facility] note* Diagnosis 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 Personal history of contact with and (suspected) exposure to potentially hazardous body fluids documented in this encounter [facility] note* Diagnosis Prostate cancer (HCC)- Primary Malignant neoplasm of prostate documented in this encounter [facility] for referral (narrative)* Diagnostic Procedure Only (Routine) - Authorized Specialty Diagnoses / Procedures Referred By Suyapa montoya Referred To Contact US IMAGING Diagnoses Liver disease Procedures US ABD RT UPPER QUADRANT US ABDOMINAL REAL TIME W/IMAGE LIMITED Deborah Main [address] [phone] Us Imaging Referral ID Status Reason Start Date Expiration Date Visits Requested Visits Authorized [id number] Authorized Auto-Generat ed Referral 2 10/02/2023 4 4 [facility] for referral (narrative)* Diagnostic Procedure Only (Routine) - Authorized Specialty Diagnoses / Procedures Referred By Contac t Referred To Contact US IMAGING Diagnoses Liver disease Procedures US ABD RT UPPER QUADRANT US ABDOMINAL REAL TIME W/IMAGE LIMITED Deborah Main [address] [phone] Us Imaging Referral ID Status Reason Start Date Expiration Date Visits Requested Visits Authorized [id number] Authorized Auto-Generat ed Referral 10/02/2023 4 4 [facility] for referral (narrative)* Diagnostic Procedure Only (Routine) - Authorized Specialty Diagnoses / Procedures Referred By Contac t Referred To Contact US IMAGING Diagnoses Liver disease Procedures US ABD RIGHT UPPER QUADRANT US ABDOMINAL REAL TIME W/IMAGE LIMITED Home Loredo MD [address] [place] [id number] Us Imaging Referral ID Status Reason Start Date Expiration Date Visits Requested Visits Authorized [id number] Authorized Auto-Generat ed Referral 09/12/2023 04/07/2024 1 1 [facility] for referral (narrative)* Diagnostic Procedure Only (Routine) - Authorized Specialty Diagnoses / Procedures Referred By Contac t Referred To Contact US IMAGING Diagnoses Liver disease Procedures US ABD RT UPPER QUADRANT US ABDOMINAL REAL TIME W/IMAGE LIMITED Deborah Main [address] [phone] Us Imaging Referral ID Status Reason Start Date Expiration Date Visits Requested Visits Authorized [id number] Authorized Auto-Generat ed Referral 10/02/2023 4 4 [facility]* Diagnostic Procedure Only (Routine) - Authorized Specialty Diagnoses / Procedures Referred By Suyapa montoya Referred To Contact US IMAGING Diagnoses Liver disease Procedures US ABD RT UPPER QUADRANT US ABDOMINAL REAL TIME W/IMAGE LIMITED Deborah Main A[address] [address] Us Imaging Referral ID Status Reason Start Date Expiration Date Visits Requested Visits Authorized [id number] Authorized Auto-Generat ed Referral 10/02/2023 4 4 [facility] Advance Directives No Advanced Directives Records FoundDocuments on File Type Date Recorded Patient Instant Potato Processor Expl anation Advance Directives and Livin g Will 02/11/2022 2:47 PM Advance Directives and Livin g Will 02/11/2022 3:13 PM Power of Fat Purification Worker 02/11/2022 3:13 PM Latest Code Status on File Code Status Date Activated Date Inactivated Comments Full Code 02/10/2022 3:42 PM 02/19/2022 12:43 PM Documents on File Type Date Recorded Patient Instant Potato Processor Expl anation Advance Directives and Livin g Will 02/19/2022 7:10 PM Advance Directives and Livin g Will 02/19/2022 7:11 PM Power of Fat Purification Worker 02/19/2022 7:10 PM Advance Directives and Livin g Will 02/11/2022 2:47 PM Advance Directives and Livin g Will 02/11/2022 3:13 PM Power of Fat Purification Worker 02/11/2022 3:13 PM Documents on File Type Date Recorded Patient Instant Potato 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 Expl anation Advance Directives and Livin g Will 02/19/2022 7:10 PM Advance Directives and Livin g Will 02/19/2022 7:11 PM Power of Fat Purification Worker 02/19/2022 7:10 PM Advance Directives and Livin g Will 02/11/2022 3:13 PM Power of Fat Purification Worker 02/11/2022 3:13 PM Documents on File Type Date Recorded Patient Instant Potato Processor Expl anation Advance Directives and Livin g Will 02/19/2022 7:10 PM Advance Directives and Livin g Will 02/19/2022 7:11 PM Power of Fat Purification Worker 02/19/2022 7:10 PM Advance Directives and Livin g Will 02/11/2022 3:13 PM Power of Fat Purification Worker 02/11/2022 3:13 PM Latest Code Status on File Code Status Date Activated Date Inactivated Comments Full Code 02/10/2022 3:42 PM 02/19/2022 12:43 PM Reason for Referral Specialty Diagnoses / Procedures Referred By Contac t Referred To Contact Radiology Diagnoses Low back pain without sciatica, unspecified back pain laterality, unspecified chronicity Procedures MR Lumbar Spine Without Contrast Munira Dickerson MD [address] [place] [address] Referral ID Status Reason Start Date Expiration Date V isits Requested Visits Authorized [id number] Authorized 03/30/2022 03/30/2023 1 1 Summary Purpose [...] or prosecute any alcohol or drug abuse patient.[facility] the event this information is protected by the Federal Confidentiality of Alcohol and Drug Abuse Patient Records regulations: The Federal rules restrict any use of the information to criminally investigate or prosecute any alcohol or drug abuse patient.[facility] the event this information is protected by the Federal Confidentiality of Alcohol and Drug Abuse Patient Records regulations: The Federal rules restrict any use of the information to criminally investigate or prosecute any alcohol or drug abuse patient.[facility] the event this information is protected by the Federal Confidentiality of Alcohol and Drug Abuse Patient Records regulations: The Federal rules restrict any use of the information to criminally investigate or prosecute any alcohol or drug abuse patient.[facility] the event this information is protected by the Federal Confidentiality of Alcohol and Drug Abuse Patient Records regulations: The Federal rules restrict any use of the information to criminally investigate or prosecute any alcohol or drug abuse patient.[facility] the event this information is protected by the Federal Confidentiality of Alcohol and Drug Abuse Patient Records regulations: The Federal rules restrict any use of the information to criminally investigate or prosecute any alcohol or drug abuse patient.[facility] the event this information is protected by the Federal Confidentiality of Alcohol and Drug Abuse Patient Records regulations: The Federal rules restrict any use of the information to criminally investigate or prosecute any alcohol or drug abuse patient.[facility] the event this information is protected by the Federal Confidentiality of Alcohol and Drug Abuse Patient Records regulations: The Federal rules restrict any use of the information to criminally investigate or prosecute any alcohol or drug abuse patient.[facility] the event this information is protected by the Federal Confidentiality of Alcohol and Drug Abuse Patient Records regulations: The Federal rules restrict any use of the information to criminally investigate or prosecute any alcohol or drug abuse patient.[facility] the event this information is protected by the Federal Confidentiality of Alcohol and Drug Abuse Patient Records regulations: The Federal rules restrict any use of the information to criminally investigate or prosecute any alcohol or drug abuse patient.[facility] the event this information is protected by the Federal Confidentiality of Alcohol and Drug Abuse Patient Records regulations: The Federal rules restrict any use of the information to criminally investigate or prosecute any alcohol or drug abuse patient.[facility] the event this information is protected by the Federal Confidentiality of Alcohol and Drug Abuse Patient Records regulations: The Federal rules restrict any use of the information to criminally investigate or prosecute any alcohol or drug abuse patient.[facility] the event this information is protected by the Federal Confidentiality of Alcohol and Drug Abuse Patient Records regulations: The Federal rules restrict any use of the information to criminally investigate or prosecute any alcohol or drug abuse patient.[facility] the event this information is protected by the Federal Confidentiality of Alcohol and Drug Abuse Patient Records regulations: The Federal rules restrict any use of the information to criminally investigate or prosecute any alcohol or drug abuse patient.[facility] the event this information is protected by the Federal Confidentiality of Alcohol and Drug Abuse Patient Records regulations: The Federal rules restrict any use of the information to criminally investigate or prosecute any alcohol or drug abuse patient.[facility] the event this information is protected by the Federal Confidentiality of Alcohol and Drug Abuse Patient Records regulations: The Federal rules restrict any use of the information to criminally investigate or prosecute any alcohol or drug abuse patient.[facility] the event this information is protected by the Federal Confidentiality of Alcohol and Drug Abuse Patient Records regulations: The Federal rules restrict any use of the information to criminally investigate or prosecute any alcohol or drug abuse patient.[facility] the event this information is protected by the Federal Confidentiality of Alcohol and Drug Abuse Patient Records regulations: The Federal rules restrict any use of the information to criminally investigate or prosecute any alcohol or drug abuse patient.[facility] the event this information is protected by the Federal Confidentiality of Alcohol and Drug Abuse Patient Records regulations: The Federal rules restrict any use of the information to criminally investigate or prosecute any alcohol or drug abuse patient.[facility] the event this information is protected by the Federal Confidentiality of Alcohol and Drug Abuse Patient Records regulations: The Federal rules restrict any use of the information to criminally investigate or prosecute any alcohol or drug abuse patient.[facility] the event this information is protected by the Federal Confidentiality of Alcohol and Drug Abuse Patient Records regulations: The Federal rules restrict any use of the information to criminally investigate or prosecute any alcohol or drug abuse patient.[facility] the event this information is protected by the Federal Confidentiality of Alcohol and Drug Abuse Patient Records regulations: The Federal rules restrict any use of the information to criminally investigate or prosecute any alcohol or drug abuse patient.[facility] the event this information is protected by the Federal Confidentiality of Alcohol and Drug Abuse Patient Records regulations: The Federal rules restrict any use of the information to criminally investigate or prosecute any alcohol or drug abuse patient.[facility] the event this information is protected by the Federal Confidentiality of Alcohol and Drug Abuse Patient Records regulations: The Federal rules restrict any use of the information to criminally investigate or prosecute any alcohol or drug abuse patient.[facility] the event this information is protected by the Federal Confidentiality of Alcohol and Drug Abuse Patient Records regulations: The Federal rules restrict any use of the information to criminally investigate or prosecute any alcohol or drug abuse patient.[facility] the event this information is protected by the Federal Confidentiality of Alcohol and Drug Abuse Patient Records regulations: The Federal rules restrict any use of the information to criminally investigate or prosecute any alcohol or drug abuse patient.[facility] the event this information is protected by the Federal Confidentiality of Alcohol and Drug Abuse Patient Records regulations: The Federal rules restrict any use of the information to criminally investigate or prosecute any alcohol or drug abuse patient.[facility] the event this information is protected by the Federal Confidentiality of Alcohol and Drug Abuse Patient Records regulations: The Federal rules restrict any use of the information to criminally investigate or prosecute any alcohol or drug abuse patient.[facility] the event this information is protected by the Federal Confidentiality of Alcohol and Drug Abuse Patient Records regulations: The Federal rules restrict any use of the information to criminally investigate or prosecute any alcohol or drug abuse patient.[facility] the event this information is protected by the Federal Confidentiality of Alcohol and Drug Abuse Patient Records regulations: The Federal rules restrict any use of the information to criminally investigate or prosecute any alcohol or drug abuse patient.[facility] the event this information is protected by the Federal Confidentiality of Alcohol and Drug Abuse Patient Records regulations: The Federal rules restrict any use of the information to criminally investigate or prosecute any alcohol or drug abuse patient.[facility] the event this information is protected by the Federal Confidentiality of Alcohol and Drug Abuse Patient Records regulations: The Federal rules restrict any use of the information to criminally investigate or prosecute any alcohol or drug abuse patient.[facility] the event this information is protected by the Federal Confidentiality of Alcohol and Drug Abuse Patient Records regulations: The Federal rules restrict any use of the information to criminally investigate or prosecute any alcohol or drug abuse patient.[facility] the event this information is protected by the Federal Confidentiality of Alcohol and Drug Abuse Patient Records regulations: The Federal rules restrict any use of the information to criminally investigate or prosecute any alcohol or drug abuse patient.[facility] the event this information is protected by the Federal Confidentiality of Alcohol and Drug Abuse Patient Records regulations: The Federal rules restrict any use of the information to criminally investigate or prosecute any alcohol or drug abuse patient.[facility] the event this information is protected by the Federal Confidentiality of Alcohol and Drug Abuse Patient Records regulations: The Federal rules restrict any use of the information to criminally investigate or prosecute any alcohol or drug abuse patient.[facility] the event this information is protected by the Federal Confidentiality of Alcohol and Drug Abuse Patient Records regulations: The Federal rules restrict any use of the information to criminally investigate or prosecute any alcohol or drug abuse patient.[facility] the event this information is protected by the Federal Confidentiality of Alcohol and Drug Abuse Patient Records regulations: The Federal rules restrict any use of the information to criminally investigate or prosecute any alcohol or drug abuse patient.[facility] the event this information is protected by the Federal Confidentiality of Alcohol and Drug Abuse Patient Records regulations: The Federal rules restrict any use of the information to criminally investigate or prosecute any alcohol or drug abuse patient.[facility] the event this information is protected by the Federal Confidentiality of Alcohol and Drug Abuse Patient Records regulations: The Federal rules restrict any use of the information to criminally investigate or prosecute any alcohol or drug abuse patient.[facility]In the event this information is protected by the Federal Confidentiality of Alcohol and Drug Abuse Patient Records regulations: The Federal rules restrict any use of the information to criminally investigate or prosecute any alcohol or drug abuse patient.[facility]In the event this information is protected by the Federal Confidentiality of Alcohol and Drug Abuse Patient Records regulations: The Federal rules restrict any use of the information to criminally investigate or prosecute any alcohol or drug abuse patient.[facility]In the event this information is protected by the Federal Confidentiality of Alcohol and Drug Abuse Patient Records regulations: The Federal rules restrict any use of the information to criminally investigate or prosecute any alcohol or drug abuse patient.[facility]In the event this information is protected by the Federal Confidentiality of Alcohol and Drug Abuse Patient Records regulations: The Federal rules restrict any use of the information to criminally investigate or prosecute any alcohol or drug abuse patient.[facility]In the event this information is protected by the Federal Confidentiality of Alcohol and Drug Abuse Patient Records regulations: The Federal rules restrict any use of the information to criminally investigate or prosecute any alcohol or drug abuse patient.[facility]In the event this information is protected by the Federal Confidentiality of Alcohol and Drug Abuse Patient Records regulations: The Federal rules restrict any use of the information to criminally investigate or prosecute any alcohol or drug abuse patient.[facility]In the event this information is protected by the Federal Confidentiality of Alcohol and Drug Abuse Patient Records regulations: The Federal rules restrict any use of the information to criminally investigate or prosecute any alcohol or drug abuse patient.[facility] the event this information is protected by the Federal Confidentiality of Alcohol and Drug Abuse Patient Records regulations: The Federal rules restrict any use of the information to criminally investigate or prosecute any alcohol or drug abuse patient.[facility] the event this information is protected by the Federal Confidentiality of Alcohol and Drug Abuse Patient Records regulations: The Federal rules restrict any use of the information to criminally investigate or prosecute any alcohol or drug abuse patient.[facility] the event this information is protected by the Federal Confidentiality of Alcohol and Drug Abuse Patient Records regulations: The Federal rules restrict any use of the information to criminally investigate or prosecute any alcohol or drug abuse patient.[facility] the event this information is protected by the Federal Confidentiality of Alcohol and Drug Abuse Patient Records regulations: The Federal rules restrict any use of the information to criminally investigate or prosecute any alcohol or drug abuse patient.[facility] the event this information is protected by the Federal Confidentiality of Alcohol and Drug Abuse Patient Records regulations: The Federal rules restrict any use of the information to criminally investigate or prosecute any alcohol or drug abuse patient.[facility] the event this information is protected by the Federal Confidentiality of Alcohol and Drug Abuse Patient Records regulations: The Federal rules restrict any use of the information to criminally investigate or prosecute any alcohol or drug abuse patient.[facility]In the event this information is protected by the Federal Confidentiality of Alcohol and Drug Abuse Patient Records regulations: The Federal rules restrict any use of the information to criminally investigate or prosecute any alcohol or drug abuse patient.[facility]In the event this information is protected by the Federal Confidentiality of Alcohol and Drug Abuse Patient Records regulations: The Federal rules restrict any use of the information to criminally investigate or prosecute any alcohol or drug abuse patient.[facility]In the event this information is protected by the Federal Confidentiality of Alcohol and Drug Abuse Patient Records regulations: The Federal rules restrict any use of the information to criminally investigate or prosecute any alcohol or drug abuse patient.[facility]In the event this information is protected by the Federal Confidentiality of Alcohol and Drug Abuse Patient Records regulations: The Federal rules restrict any use of the information to criminally investigate or prosecute any alcohol or drug abuse patient.[facility] the event this information is protected by the Federal Confidentiality of Alcohol and Drug Abuse Patient Records regulations: The Federal rules restrict any use of the information to criminally investigate or prosecute any alcohol or drug abuse patient.[facility]In the event this information is protected by the Federal Confidentiality of Alcohol and Drug Abuse Patient Records regulations: The Federal rules restrict any use of the information to criminally investigate or prosecute any alcohol or drug abuse patient.OhiohealthIn the event this information is protected by the Federal Confidentiality of Alcohol and Drug Abuse Patient Records regulations: The Federal rules restrict any use of the information to criminally investigate or prosecute any alcohol or drug abuse patient.OhiohealthIn the event this information is protected by the Federal Confidentiality of Alcohol and Drug Abuse Patient Records regulations: The Federal rules restrict any use of the information to criminally investigate or prosecute any alcohol or drug abuse patient.OhiohealthIn the event this information is protected by the Federal Confidentiality of Alcohol and Drug Abuse Patient Records regulations: The Federal rules restrict any use of the information to criminally investigate or prosecute any alcohol or drug abuse patient.OhiohealthIn the event this information is protected by the Federal Confidentiality of Alcohol and Drug Abuse Patient Records regulations: The Federal rules restrict any use of the information to criminally investigate or prosecute any alcohol or drug abuse patient.OhiohealthIn the event this information is protected by the Federal Confidentiality of Alcohol and Drug Abuse Patient Records regulations: The Federal rules restrict any use of the information to criminally investigate or prosecute any alcohol or drug abuse patient.OhiohealthIn the event this information is protected by the Federal Confidentiality of Alcohol and Drug Abuse Patient Records regulations: The Federal rules restrict any use of the information to criminally investigate or prosecute any alcohol or drug abuse patient.OhiohealthIn the event this information is protected by the Federal Confidentiality of Alcohol and Drug Abuse Patient Records regulations: The Federal rules restrict any use of the information to criminally investigate or prosecute any alcohol or drug abuse patient.OhiohealthIn the event this information is protected by the Federal Confidentiality of Alcohol and Drug Abuse Patient Records regulations: The Federal rules restrict any use of the information to criminally investigate or prosecute any alcohol or drug abuse patient.[facility] Reason for Visit (unrecogniz ed section and [...] Reason Comments Results Reason Comments Faxed to [facility] med/surg Reason Comments Patient Request 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 Reason Comments Hospital F/U Reason Comments verbal [...] SUSPNSION Geronimo Swift, DO [address] [place] [address] Satish [facility] [address] [place] [address] Referral ID Status Reason Start Date Expiration Date V isits Requested Visits Authorized [id number] Authorized 09/28/2023 11/06/2024 99 99 Care Teams (unrecognized sec tion and content) Quality Control Projectionist Relationship Specialty Start Date End Date Manuel Beebe MD [address] [place], [place] [id number] PCP - General Internal Medicine 12/31/13 Nivia, Cosme S Stereotype Finisher Cardiology 07/09/20 Albino Copeland, micro computer specialistSenior Digital Designer Internal Medicine 05/19/21 [facility] [address] [place], [place] [id number] Pharmacist Pharmacy 02/02/22 Quality Control Projectionist Relationship Specialty Start Date End Date Manuel Beebe MD [address] [place], [place] [id number] PCP - General Internal Medicine 12/31/13 Nivia, Bellingham S Stereotype Finisher Cardiology 07/09/20 Albino Copeland, micro computer specialistSenior Digital Designer Internal Medicine 05/19/21 [facility] [address] [place] [address] Pharmacist Pharmacy 02/02/22 Quality Control Projectionist Relationship Specialty Start Date End Date Manuel Beebe MD [address] [place] [address] PCP - General Internal Medicine 12/31/13 Nivia, Cosme S Stereotype Finisher Cardiology 07/09/20 Albino Copeland, micro computer specialistSenior Digital Designer Internal Medicine 05/19/21 [facility] [address] [place] [address] Pharmacist Pharmacy 02/02/22 Quality Control Projectionist Relationship Specialty Start Date End Date No, Physician [facility] PCP - General 02/10/22 Quality Control Projectionist Relationship Specialty Start Date End Date Manuel Beebe MD [address] [place] [address] PCP - General Internal Medicine 12/31/13 Nivia, Cosme S Stereotype Finisher Cardiology 07/09/20 Albino Copeland, micro computer specialistSenior Digital Designer Internal Medicine 05/19/21 [facility] [address] [place] [address] Pharmacist Pharmacy 02/02/22 Quality Control Projectionist Relationship Specialty Start Date End Date No, Physician [facility] PCP - General 02/10/22 Quality Control Projectionist Relationship Specialty Start Date End Date Manuel Beebe MD [address] [place] [address] PCP - General Internal Medicine 12/31/13 Nivia, Cosme S Stereotype Finisher Cardiology 07/09/20 Lorrie Osorio RN [address] [id number] Senior Digital Designer 05/08/2105/08 Lex Posada (Rn) [address] [place], [place] [address] Senior Digital Designer Family Practice 05/08/2105/07 Albino Copeland, micro computer specialistSenior Digital Designer Internal Medicine 05/19/21 [facility] [address] [place] [address] Pharmacist Pharmacy 02/02/22 Quality Control Projectionist Relationship Specialty Start Date End Date Manuel Beebe MD [address] [place], [place] [id number] PCP - General Internal Medicine 12/31/13 Nivia, Cosme S Stereotype Finisher Cardiology 07/09/20 Albino Copeland, micro computer specialistSenior Digital Designer Internal Medicine 05/19/21 [facility] [address] [place], [place] [address] Pharmacist Pharmacy 02/02/22 Quality Control Projectionist Relationship Specialty Start Date End Date No, Physician [facility] PCP - General 02/10/22 Quality Control Projectionist Relationship Specialty Start Date End Date No, Physician [facility] PCP - General 02/10/22 Quality Control Projectionist Relationship Specialty Start Date End Date No, Physician [facility] PCP - General 02/10/22 Quality Control Projectionist Relationship Specialty Start Date End Date No, Physician [facility] PCP - General 02/10/22 Quality Control Projectionist Relationship Specialty Start Date End Date Manuel Beebe MD [address], [place] [address] PCP - General Internal Medicine 12/31/13 Nivia, Cosme S Stereotype Finisher Cardiology 07/09/20 Albino Copeland, micro computer specialistSenior Digital Designer Internal Medicine 05/19/21 [facility] [address] [place] [address] Pharmacist Pharmacy 02/02/22 Quality Control Projectionist Relationship Specialty Start Date End Date Manuel Beebe MD [address] [place] [address], [place] [address] PCP - General Internal Medicine 12/31/13 Nivia, Bellingham S Stereotype Finisher Cardiology 07/09/20 Albino Copeland, micro computer specialistSenior Digital Designer Internal Medicine 05/19/21 [facility] [address] [place] [address] Pharmacist Pharmacy 02/02/22 Quality Control Projectionist Relationship Specialty Start Date End Date Manuel Beebe MD [address] [place] [address], [place] [address] PCP - General Internal Medicine 12/31/13 Nivia, Bellingham S Stereotype Finisher Cardiology 07/09/20 Albino Copeland, micro computer specialistSenior Digital Designer Internal Medicine 05/19/21 Jana Lara, [facility] [address] [place] [address] Pharmacist Pharmacy 02/02/22 Quality Control Projectionist Relationship Specialty Start Date End Date Manuel Beebe MD [address] [place] [address], [place] [address] PCP - General Internal Medicine 05/05/22 Quality Control Projectionist Relationship Specialty Start Date End Date Manuel Beebe MD [address] [place] [address], [place] [address] PCP - General Internal Medicine 05/05/22 Quality Control Projectionist Relationship Specialty Start Date End Date Manuel Beebe MD [address] [place] [address] PCP - General Internal Medicine 05/05/22 Quality Control Projectionist Relationship Specialty Start Date End Date Manuel Beebe MD [address] [place] [address] PCP - General Internal Medicine 12/31/13 Nivia, Bellingham S Stereotype Finisher Cardiology 07/09/20 Albino Copeland, micro computer specialistSenior Digital Designer Internal Medicine 05/19/21 [facility] [address] [place] [address] Pharmacist Pharmacy 02/02/22 Quality Control Projectionist Relationship Specialty Start Date End Date Manuel Beebe MD [address] [place] [address] PCP - General Internal Medicine 12/31/13 Nivia, Bellingham S Stereotype Finisher Cardiology 07/09/20 Albino Copeland, micro computer specialistSenior Digital Designer Internal Medicine 05/19/21 Jana Lara, [facility] [address] [place] [address] Pharmacist Pharmacy 02/02/22 Quality Control Projectionist Relationship Specialty Start Date End Date Manuel Beebe MD [address] [place] [address] PCP - General Internal Medicine 12/31/13 Nivia, B[place] S Stereotype Finisher Cardiology 07/09/20 Albino Copeland, micro computer specialistSenior Digital Designer Internal Medicine 05/19/21 Jana Lara, [facility] [address] [place] [address] Pharmacist Pharmacy 02/02/22 Quality Control Projectionist Relationship Specialty Start Date End Date Manuel Beebe MD [address] [place] [address] PCP - General Internal Medicine 12/31/13 Nivia, Cosme S Stereotype Finisher Cardiology 07/09/20 Lex Posada, micro computer specialistSenior Digital Designer Internal Medicine 05/19/21 [facility] [address] [place] [address] Pharmacist Pharmacy 02/02/22 Quality Control Projectionist Relationship Specialty Start Date End Date Manuel Beebe MD [address] [place] [address] PCP - General Internal Medicine 12/31/13 Nivia, Bellingham S [address] [place] [address] Stereotype Finisher Cardiology 07/09/20 Lex Posada, micro computer specialistSenior Digital Designer Internal Medicine 05/19/21 [facility]Saint [facility] [address] [place] [address] Pharmacist Pharmacy 02/02/22 Quality Control Projectionist Relationship Specialty Start Date End Date Manuel Beebe MD [address] [place] [address] PCP - General Internal Medicine 12/31/13 Nivia, Bellingham S [address] [place] [address] Stereotype Finisher Cardiology 07/09/20 Lex Posada, micro computer specialistSenior Digital Designer Internal Medicine 05/19/21 [facility]Saint [facility] [address] [place] [address] Pharmacist Pharmacy 02/02/22 Quality Control Projectionist Relationship Specialty Start Date End Date Manuel Beebe MD [address] [facility] [place] [address] PCP - General Internal Medicine 12/31/13 Nivia, Cosme S [address] [place] [address] Stereotype Finisher Cardiology 07/09/20 Lex Posada, micro computer specialistSenior Digital Designer Internal Medicine 05/19/21 Jana Lara, [facility] [address] [place] [address] Pharmacist Pharmacy 02/02/22 Quality Control Projectionist Relationship Specialty Start Date End Date Manuel Beebe MD [address] [place] [address] PCP - General Internal Medicine 12/31/13 Nivia, Cosme S [address] [place] [address] Stereotype Finisher Cardiology 07/09/20 Lex Posada, micro computer specialistSenior Digital Designer Internal Medicine 05/19/21 Jana Lara, [facility] [address] [place] [address] Pharmacist Pharmacy 02/02/22 Quality Control Projectionist Relationship Specialty Start Date End Date Manuel Beebe MD [address] [place] [address] PCP - General Internal Medicine 12/31/13 Nivia, Bellingham S [address] [place] [address] Stereotype Finisher Cardiology 07/09/20 Lex Posada, micro computer specialistSenior Digital Designer Internal Medicine 05/19/21 Jana Lara, [facility] [address] [place] [address] Pharmacist Pharmacy 02/02/22 Quality Control Projectionist Relationship Specialty Start Date End Date Manuel Beebe MD [address] [facility] [place] [address] PCP - General Internal Medicine 12/31/13 Nivia, Bellingham S [address] [facility] [place] [address] Stereotype Finisher Cardiology 07/09/20 Lex Posada, micro computer specialistSenior Digital Designer Internal Medicine 05/19/21 [facility] [address] [facility] [place] [address] Pharmacist Pharmacy 02/02/22 Quality Control Projectionist Relationship Specialty Start Date End Date Manuel Beebe MD [address] [place] [address] PCP - General Internal Medicine 12/31/13 Nivia, Bellingham S [address] [facility] [place] [address] Stereotype Finisher Cardiology 07/09/20 Lex Posada, micro computer specialistSenior Digital Designer Internal Medicine 05/19/21 Jana Lara, [facility] [address] [place] [address] Pharmacist Pharmacy 02/02/22 Quality Control Projectionist Relationship Specialty Start Date End Date Manuel Beebe MD [address] [place] [address] PCP - General Internal Medicine 12/31/13 Nivia, Cosme S [address] [facility] [place] [address] Stereotype Finisher Cardiology 07/09/20 Lex Posada, micro computer specialistSenior Digital Designer Internal Medicine 05/19/21 Jana Lara, [facility] [address] [place] [address] Pharmacist Pharmacy 02/02/22 Quality Control Projectionist Relationship Specialty Start Date End Date Manuel Beebe MD [address] [place] [address] PCP - General Internal Medicine 12/31/13 Nivia, Cosme S [address] [place] [address] Stereotype Finisher Cardiology 07/09/20 Lex Posada, micro computer specialistSenior Digital Designer Internal Medicine 05/19/21 [facility] [address] [place] [address] Pharmacist Pharmacy 02/02/22 Quality Control Projectionist Relationship Specialty Start Date End Date Manuel Beebe MD [address] [place] [address] PCP - General Internal Medicine 12/31/13 Nivia, Cosme S [address] [place] [address] Stereotype Finisher Cardiology 07/09/20 Lex Posada, micro computer specialistSenior Digital Designer Internal Medicine 05/19/21 [facility] [address] [place] [address] Pharmacist Pharmacy 02/02/22 Quality Control Projectionist Relationship Specialty Start Date End Date Manuel Beebe MD [address] [place] [address] PCP - General Internal Medicine 12/31/13 Nivia, Bellingham S [address] [place] [address] Stereotype Finisher Cardiology 07/09/20 Lex Posada, micro computer specialistSenior Digital Designer Internal Medicine 05/19/21 [facility] [address] [place] [address] Pharmacist Pharmacy 02/02/22 Quality Control Projectionist Relationship Specialty Start Date End Date Manuel Beebe MD [address] [place] [address] PCP - General Internal Medicine 12/31/13 Nivia, Cosme S [address] [place] [address] Stereotype Finisher Cardiology 07/09/20 Lex Posada, micro computer specialistSenior Digital Designer Internal Medicine 05/19/21 [facility] [address] [place] [address] Pharmacist Pharmacy 02/02/22 Quality Control Projectionist Relationship Specialty Start Date End Date Manuel Beebe MD [address] [place] [address] PCP - General Internal Medicine 12/31/13 Nivia, Bellingham S [address] [place] [address] Stereotype Finisher Cardiology 07/09/20 Lex Posada micro computer specialistSenior Digital Designer Internal Medicine 05/19/21 [facility] [address] [place] [address] Pharmacist Pharmacy 02/02/22 Quality Control Projectionist Relationship Specialty Start Date End Date Manuel Beebe MD [address] [place] [address] PCP - General Internal Medicine 12/31/13 Nivia, Cosme S [address] [place] [address] Stereotype Finisher Cardiology 07/09/20 Lex Posada, micro computer specialistSenior Digital Designer Internal Medicine 05/19/21 [facility] [address] [place] [address] Pharmacist Pharmacy 02/02/22 Quality Control Projectionist Relationship Specialty Start Date End Date Manuel Beebe MD [address] [place] [address] PCP - General Internal Medicine 12/31/13 Cosme Gonzáles S [address] [place] [address] Stereotype Finisher Cardiology 07/09/20 Lex Posada, micro computer specialistSenior Digital Designer Internal Medicine 05/19/21 [facility] [address] [place] [address] Pharmacist Pharmacy 02/02/22 Quality Control Projectionist Relationship Specialty Start Date End Date Manuel Beebe MD [address] [place] [address] PCP - General Internal Medicine 12/31/13 Cosme Gonzáles [address] [place] [address] Stereotype Finisher Cardiology 07/09/20 Lex Posada, micro computer specialistSenior Digital Designer Internal Medicine 05/19/21 [facility] [address] [place] [address] Pharmacist Pharmacy 02/02/22 Quality Control Projectionist Relationship Specialty Start Date End Date Manuel Beebe MD [address] [place] [address] PCP - General Internal Medicine 12/31/13 Cosme Gonzáles MD [address] [place] [address] Stereotype Finisher Cardiology 07/09/20 Lex Posada, micro computer specialistSenior Digital Designer Internal Medicine 05/19/21 [facility] [address] [place] [address] Pharmacist Pharmacy 02/02/22 Quality Control Projectionist Relationship Specialty Start Date End Date Manuel Beebe MD [address] [place] [address] PCP - General Internal Medicine 12/31/13 Cosme Gonzáles MD [address] [place] [address] Stereotype Finisher Cardiology 07/09/20 Lex Posada RN Senior Digital Designer Internal Medicine 05/19/21 [facility] [address] [place] [address] Pharmacist Pharmacy 02/02/22 Quality Control Projectionist Relationship Specialty Start Date End Date Manuel Beebe MD [address] [place] [address] PCP - General Internal Medicine 12/31/13 Cosme Gonzáles MD [address] [place] [address] Stereotype Finisher Cardiology 07/09/20 Lex Posada RN Senior Digital Designer Internal Medicine 05/19/21 [facility] Pharmacist Pharmacy 02/02/22 Quality Control Projectionist Relationship Specialty Start Date End Date Manuel Beebe MD [address] [place] [address] PCP - General Internal Medicine 12/31/13 Cosme Gonzáles MD [address] [facility] [place] [address] Stereotype Finisher Cardiology 07/09/20 Lex Posada, micro computer specialistSenior Digital Designer Internal Medicine 05/19/21 [facility] CenterJana carpenterSaint [facility] Center Pharmacist Pharmacy 02/02/22 Quality Control Projectionist Relationship Specialty Start Date End Date Manuel Beebe MD [address] [place] [address] PCP - General Internal Medicine 12/31/13 Cosme Gonzáles MD [address] [place] [address] Stereotype Finisher Cardiology 07/09/20 Lex Posada RN Senior Digital Designer Internal Medicine 05/19/21 Quality Control Projectionist Relationship Specialty Start Date End Date Manuel Beebe MD [address] [place] [address] PCP - General Internal Medicine 12/31/13 Cosme Gonzáles MD [address] [place] [address] Stereotype Finisher Cardiology 07/09/20 Lex Posada RN Senior Digital Designer Internal Medicine 05/19/21 Quality Control Projectionist Relationship Specialty Start Date End Date Manuel Beebe MD [address] [place] [address] PCP - General Internal Medicine 12/31/13 Cosme Gonzáles MD [address] [place] [address] Stereotype Finisher Cardiology 07/09/20 Lex Posada, micro computer specialistSenior Digital Designer Internal Medicine 05/19/21 Quality Control Projectionist Relationship Specialty Start Date End Date Manuel Beebe MD [address] [place] [address] PCP - General Internal Medicine 12/31/13 Cosme Gonzáles MD [address] [place] [address] Stereotype Finisher Cardiology 07/09/20 Lex Posada RN Senior Digital Designer Internal Medicine 05/19/21 Quality Control Projectionist Relationship Specialty Start Date End Date Manuel Beebe MD [address] [place] [address] PCP - General Internal Medicine 12/31/13 Cosme Gonzáles MD [address] [place] [address] Stereotype Finisher Cardiology 07/09/20 Lex Posada micro computer specialistSenior Digital Designer Internal Medicine 05/19/21 Quality Control Projectionist Relationship Specialty Start Date End Date Manuel Beebe MD [address] [place] [address] PCP - General Internal Medicine 12/31/13 Cosme Gonzáles MD [address] [place] [address] Stereotype Finisher Cardiology 07/09/20 Lex Posada, micro computer specialistSenior Digital Designer Internal Medicine 05/19/21 (unrecognized sect ion and content) No Status Records FoundNo Status Records FoundNo Status Records Found INFORMATION SOURCE (unrecogn ized section and content) DATE CREATED AUTHOR AUTHOR'S ORGANIZ ATION 06/20/2022 [facility] DATE CREATED AUTHOR AUTHOR'S ORGANIZ ATION 12/27/2023 [facility] Inactive Administered Medications - up to 3 [...] BE BASED ON THE PRIMARY CLINICAL RECORDS. [facility]. provides no warranty or guarantee of the accuracy or completeness of information in this document.
[2024-01-06 08:25] LABS: Phosphorus 3.6 mg/dL (2.5-4.9)
== END ==
LOC: OLS.SW 05:00
PROVIDERS: PCP Internal Medicine; Visit Provider Internal Medicine
DX: G93.41 Metabolic encephalopathy (principal)
CPT/HCPCS: 36415; 84100

== ENCOUNTER → 2024-01-11 | Outpatient (REF) | payer MEDICARE, MEDICAID, SELFPAY ==
[2024-01-11 07:56] LABS: Absolute Lymphocyte Count 0.61 X10^3/uL (0.83-4.51); Absolute Neutrophil Count 5.5 X10^3/uL (2.0-7.7); Basophil# 0.04 X10^3/uL; Basophil% 0.6 % (0-1); Eosinophils% 4.3 % (0-5); Hematocrit 35.6 % (40-54); Hemoglobin 11.6 g/dL (13.0-16.5); Lymphocyte # 0.61 X10^3/ul (0.83-4.51); Lymphocyte % 8.8 % (19-41); Mean Corp Hgb Conc 32.6 g/dL (32-36); Mean Corpuscular Hgb 31.9 pg (27.0-32.0); Mean Corpuscular Volume 97.8 fL (80-94); Mean Platelet Vol. 12.2 fl (6.2-12.0); Monocyte# 0.43 X10^3/uL; Monocyte% 6.2 % (0-10); NRBC Flagged by Analyzer 0 % (0-5); Neutrophil # 5.51 X10^3/uL (2.7-7.7); Neutrophil % 79.2 % (47-70); Platelet Count 132 K/mm3 (150-450); RBC Distribution Width CV 14.9 % (11.6-14.6); RBC Distribution Width SD 53.7 fl (35.1-43.9); Red Blood Count 3.64 M/mm3 (4.6-6.2)
[2024-01-11 08:23] LABS: Anion Gap 8 (5-15); BUN 17 mg/dL (7-18); BUN/Creat Ratio 11.9 RATIO (10-20); Calcium,Total 8.7 mg/dL (8.5-10.1); Chloride 113 mmol/L (98-107); Creatinine, Serum 1.43 mg/dL (0.70-1.30); EST Glomerular Filtration Rate 52 mL/min (>60); Est Glom Filt Rate - Afr Amer 63 mL/min (>60); Glucose 115 mg/dL (74-106); Potassium 3.3 mmol/L (3.5-5.1); Sodium Level 144 mmol/L (136-145)
[2024-01-11 10:59] LABS: Hemoglobin A1c 6.2 % (3.8-5.6)
== END ==
LOC: OLS.SW 05:00
PROVIDERS: PCP Internal Medicine; Visit Provider Internal Medicine
DX: E11.22 Type 2 diabetes mellitus with diabetic chronic kidney disease (principal); N18.9 Chronic kidney disease, unspecified; G20.B1 Parkinson's disease with dyskinesia, without mention of fluctuations
CPT/HCPCS: 36415; 80048; 83036; 85025

== ENCOUNTER → 2024-01-19 | Outpatient (REF) | payer MEDICARE, MEDICAID, SELFPAY ==
[2024-01-19 08:33] LABS: Anion Gap 7 (5-15); BUN 26 mg/dL (7-18); Chloride 114 mmol/L (98-107); Creatinine, Serum 1.24 mg/dL (0.70-1.30); EST Glomerular Filtration Rate 61 mL/min (>60); Est Glom Filt Rate - Afr Amer 74 mL/min (>60); Glucose 107 mg/dL (74-106); Potassium 3.7 mmol/L (3.5-5.1); Sodium Level 144 mmol/L (136-145)
== END ==
LOC: OLS.SW 05:00
PROVIDERS: PCP Internal Medicine; Visit Provider Internal Medicine
DX: N28.9 Disorder of kidney and ureter, unspecified (principal); G93.41 Metabolic encephalopathy
CPT/HCPCS: 36415; 80048; 82140

== ENCOUNTER → 2024-02-16 05:00 | Outpatient (REF) | payer MEDICARE, MEDICAID, SELFPAY | LOC: OLS.SW 05:00 | PROVIDERS: PCP Internal Medicine; Visit Provider Internal Medicine | DX: G93.41 Metabolic encephalopathy (principal) | CPT/HCPCS: 36415; 82140 ==

== ENCOUNTER → 2024-03-12 05:00 | Outpatient (REF) | payer MEDICARE, MEDICAID, SELFPAY ==
[2024-03-12 09:23] LABS: Absolute Lymphocyte Count 0.61 X10^3/uL (0.83-4.51); Absolute Neutrophil Count 7.1 X10^3/uL (2.0-7.7); Basophil# 0.04 X10^3/uL; Basophil% 0.5 % (0-1); Eosinophils% 2.4 % (0-5); Hematocrit 41.9 % (40-54); Hemoglobin 13.4 g/dL (13.0-16.5); Lymphocyte # 0.61 X10^3/ul (0.83-4.51); Lymphocyte % 7.2 % (19-41); Mean Corpuscular Hgb 31.5 pg (27.0-32.0); Mean Corpuscular Volume 98.6 fL (80-94); Mean Platelet Vol. 11.3 fl (6.2-12.0); Monocyte# 0.45 X10^3/uL; Monocyte% 5.3 % (0-10); NRBC Flagged by Analyzer 0 % (0-5); Neutrophil # 7.11 X10^3/uL (2.7-7.7); Neutrophil % 83.7 % (47-70); Platelet Count 171 K/mm3 (150-450); RBC Distribution Width CV 14.2 % (11.6-14.6); RBC Distribution Width SD 51.3 fl (35.1-43.9); Red Blood Count 4.25 M/mm3 (4.6-6.2); White Blood Count 8.5 K/mm3 (4.4-11.0)
[2024-03-12 09:38] LABS: International Normalized Ratio 1.6; Prothrombin Time (Protime)PT. 19.2 SECONDS (11.7-14.9)
[2024-03-12 09:52] LABS: ALB/GLOB Ratio 0.9 RATIO (0.9-2.4); AST(SGOT) 18 U/L (15-37); Alanine Aminotransfer ALT/SGPT 9 U/L (16-61); Albumin, Serum 3.4 g/dL (3.2-5.0); Alkaline Phosphatase 90 U/L (45-117); Anion Gap 5 (5-15); BUN 23 mg/dL (7-18); BUN/Creat Ratio 20.9 RATIO (10-20); Calcium,Total 9.7 mg/dL (8.5-10.1); Chloride 108 mmol/L (98-107); EST Glomerular Filtration Rate 70 mL/min (>60); Est Glom Filt Rate - Afr Amer 85 mL/min (>60); Globulin 3.9 g/dL (2.2-4.2); Glucose 120 mg/dL (74-106); Potassium 4.2 mmol/L (3.5-5.1); Protein, Total 7.3 g/dL (6.4-8.2); Sodium Level 139 mmol/L (136-145)
== END ==
LOC: OLS.SW 05:00
PROVIDERS: PCP Internal Medicine; Visit Provider Internal Medicine
DX: E11.22 Type 2 diabetes mellitus with diabetic chronic kidney disease (principal); N18.9 Chronic kidney disease, unspecified; K74.60 Unspecified cirrhosis of liver
CPT/HCPCS: 36415; 80053; 85025; 85610

== ENCOUNTER → 2024-03-15 | Outpatient (REF) | payer MEDICARE, MEDICAID, SELFPAY | LOC: OLS.SW 05:00 | PROVIDERS: PCP Internal Medicine; Visit Provider Internal Medicine | DX: N17.9 Acute kidney failure, unspecified (principal) | CPT/HCPCS: 36415; 82140 ==

== ENCOUNTER → 2024-03-26 | Outpatient (REF) | payer MEDICARE, MEDICAID, SELFPAY ==
[2024-03-26 09:23] LABS: Hematocrit 41.4 % (40-54); Hemoglobin 13.1 g/dL (13.0-16.5); Mean Corp Hgb Conc 31.6 g/dL (32-36); Mean Corpuscular Hgb 31.3 pg (27.0-32.0); Mean Platelet Vol. 11.6 fl (6.2-12.0); Platelet Count 155 K/mm3 (150-450); RBC Distribution Width CV 14.1 % (11.6-14.6); RBC Distribution Width SD 51.4 fl (35.1-43.9); Red Blood Count 4.18 M/mm3 (4.6-6.2); White Blood Count 6.8 K/mm3 (4.4-11.0)
[2024-03-26 10:04] LABS: ALB/GLOB Ratio 0.9 RATIO (0.9-2.4); AST(SGOT) 17 U/L (15-37); Alanine Aminotransfer ALT/SGPT 12 U/L (16-61); Albumin, Serum 3.2 g/dL (3.2-5.0); Alkaline Phosphatase 93 U/L (45-117); Amylase 74 U/L (25-115); Anion Gap 7 (5-15); BUN 25 mg/dL (7-18); BUN/Creat Ratio 20.5 RATIO (10-20); Calcium,Total 9.4 mg/dL (8.5-10.1); Chloride 112 mmol/L (98-107); Cholesterol 133 mg/dL (200); Creatinine, Serum 1.22 mg/dL (0.70-1.30); EST Glomerular Filtration Rate 62 mL/min (>60); Est Glom Filt Rate - Afr Amer 75 mL/min (>60); Globulin 3.7 g/dL (2.2-4.2); Glucose 117 mg/dL (74-106); High Density Lipoprotein 27 mg/dL; Potassium 3.7 mmol/L (3.5-5.1); Protein, Total 6.9 g/dL (6.4-8.2); Sodium Level 139 mmol/L (136-145); Triglycerides 159 mg/dL; Very Low Density Lipoprotein 32 mg/dL (5-40)
== END ==
LOC: OLS.SW 04:00
PROVIDERS: PCP Internal Medicine; Referring Provider Internal Medicine; Visit Provider Internal Medicine
DX: E46 Unspecified protein-calorie malnutrition (principal)
CPT/HCPCS: 36415; 80053; 80061; 82150; 85027

== ENCOUNTER → 2024-04-12 05:00 | Outpatient (REF) | payer MEDICARE, MEDICAID, SELFPAY | LOC: OLS.SW 05:00 | PROVIDERS: PCP Internal Medicine; Visit Provider Internal Medicine | DX: E11.22 Type 2 diabetes mellitus with diabetic chronic kidney disease (principal); N18.32 Chronic kidney disease, stage 3b; G40.909 Epilepsy, unspecified, not intractable, without status epilepticus; I50.42 Chronic combined systolic (congestive) and diastolic (congestive) heart failure; K74.60 Unspecified cirrhosis of liver | CPT/HCPCS: 36415; 82140 ==

== ENCOUNTER → 2024-05-11 04:00 | Outpatient (REF) | payer MEDICARE, MEDICAID, SELFPAY | LOC: OLS.SW 04:00 | PROVIDERS: PCP Internal Medicine; Referring Provider Internal Medicine; Visit Provider Internal Medicine | DX: G93.41 Metabolic encephalopathy (principal) | CPT/HCPCS: 36415; 82140 ==

== ENCOUNTER → 2024-06-08 | Outpatient (REF) | payer MEDICARE, MEDICAID, SELFPAY | LOC: OLS.SW 05:00 | PROVIDERS: PCP Internal Medicine; Visit Provider Internal Medicine | DX: Z79.899 Other long term (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 (principal) | CPT/HCPCS: 36415; 82140 ==

== ENCOUNTER → 2024-07-06 05:00 | Outpatient (REF) | payer MEDICARE, MEDICAID, SELFPAY | LOC: OLS.SW 05:00 | PROVIDERS: PCP Internal Medicine; Visit Provider Internal Medicine | DX: Z79.899 Other long term (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 (principal) | CPT/HCPCS: 36415; 82140 ==

== ENCOUNTER → 2024-07-16 05:00 | Outpatient (REF) | payer MEDICARE, MEDICAID, SELFPAY ==
[2024-07-16 09:55] LABS: Hemoglobin A1c 6.6 % (3.8-5.6)
== END ==
LOC: OLS.SW 05:00
PROVIDERS: PCP Internal Medicine; Visit Provider Internal Medicine
DX: E11.9 Type 2 diabetes mellitus without complications (principal)
CPT/HCPCS: 36415; 83036

== ENCOUNTER → 2024-08-02 | Outpatient (REF) | payer MEDICARE, MEDICAID, SELFPAY ==
[2024-08-02 08:21] LABS: Hematocrit 39.1 % (40-54); Hemoglobin 12.4 g/dL (13.0-16.5); Mean Corp Hgb Conc 31.7 g/dL (32-36); Mean Corpuscular Hgb 31.8 pg (27.0-32.0); Mean Corpuscular Volume 100.3 fL (80-94); Mean Platelet Vol. 11.5 fl (6.2-12.0); Platelet Count 137 K/mm3 (150-450); RBC Distribution Width CV 13.8 % (11.6-14.6); RBC Distribution Width SD 50.5 fl (35.1-43.9); White Blood Count 7.7 K/mm3 (4.4-11.0)
[2024-08-02 08:32] LABS: ALB/GLOB Ratio 0.9 RATIO (0.9-2.4); AST(SGOT) 12 U/L (15-37); Alanine Aminotransfer ALT/SGPT 10 U/L (16-61); Albumin, Serum 3.3 g/dL (3.2-5.0); Alkaline Phosphatase 63 U/L (45-117); Anion Gap 6 (5-15); BUN 49 mg/dL (7-18); BUN/Creat Ratio 31.6 RATIO (10-20); Calcium,Total 8.9 mg/dL (8.5-10.1); Chloride 116 mmol/L (98-107); Creatinine, Serum 1.55 mg/dL (0.70-1.30); EST Glomerular Filtration Rate 47 mL/min (>60); Est Glom Filt Rate - Afr Amer 57 mL/min (>60); Globulin 3.6 g/dL (2.2-4.2); Glucose 151 mg/dL (74-106); Potassium 4.1 mmol/L (3.5-5.1); Protein, Total 6.9 g/dL (6.4-8.2); Sodium Level 141 mmol/L (136-145)
== END ==
LOC: OLS.SW 05:00
PROVIDERS: PCP Internal Medicine; Visit Provider Internal Medicine
DX: I50.9 Heart failure, unspecified (principal); E11.22 Type 2 diabetes mellitus with diabetic chronic kidney disease; G20.B1 Parkinson's disease with dyskinesia, without mention of fluctuations; J96.11 Chronic respiratory failure with hypoxia; N18.32 Chronic kidney disease, stage 3b
CPT/HCPCS: 36415; 80053; 85027

== ENCOUNTER → 2024-08-03 | Outpatient (REF) | payer MEDICARE, MEDICAID, SELFPAY | LOC: OLS.SW 05:00 | PROVIDERS: PCP Internal Medicine; Visit Provider Internal Medicine | DX: G93.41 Metabolic encephalopathy (principal) | CPT/HCPCS: 36415; 82140 ==

== ENCOUNTER → 2024-08-31 | Outpatient (REF) | payer MEDICARE, MEDICAID, SELFPAY | LOC: OLS.SW 05:00 | PROVIDERS: PCP Internal Medicine; Visit Provider Internal Medicine | DX: G93.41 Metabolic encephalopathy (principal) | CPT/HCPCS: 36415; 82140 ==

== ENCOUNTER → 2024-09-10 | Outpatient (REF) | payer MEDICARE, MEDICAID, SELFPAY ==
[2024-09-10 09:42] LABS: Absolute Lymphocyte Count 0.51 X10^3/uL (0.83-4.51); Absolute Neutrophil Count 4.8 X10^3/uL (2.0-7.7); Basophil# 0.03 X10^3/uL; Basophil% 0.5 % (0-1); Eosinophil# 0.33 X10^3/uL; Eosinophils% 5.3 % (0-5); Hematocrit 39.6 % (40-54); Hemoglobin 12.3 g/dL (13.0-16.5); Lymphocyte # 0.51 X10^3/ul (0.83-4.51); Lymphocyte % 8.2 % (19-41); Mean Corp Hgb Conc 31.1 g/dL (32-36); Mean Corpuscular Hgb 31.5 pg (27.0-32.0); Mean Corpuscular Volume 101.3 fL (80-94); Monocyte# 0.42 X10^3/uL; Monocyte% 6.8 % (0-10); NRBC Flagged by Analyzer 0 % (0-5); Neutrophil # 4.81 X10^3/uL (2.7-7.7); Neutrophil % 77.7 % (47-70); POSITIVE DIFFERENTIAL YES; Platelet Count 135 K/mm3 (150-450); RBC Distribution Width CV 14.5 % (11.6-14.6); RBC Distribution Width SD 54.4 fl (35.1-43.9); Red Blood Count 3.91 M/mm3 (4.6-6.2); White Blood Count 6.2 K/mm3 (4.4-11.0)
[2024-09-10 09:55] LABS: International Normalized Ratio 1.5; Prothrombin Time (Protime)PT. 18.4 SECONDS (11.7-14.9)
[2024-09-10 10:06] LABS: AST(SGOT) 9 U/L (15-37); Alanine Aminotransfer ALT/SGPT 12 U/L (16-61); Albumin, Serum 3.3 g/dL (3.2-5.0); Alkaline Phosphatase 57 U/L (45-117); Anion Gap 5 (5-15); BUN 30 mg/dL (7-18); Calcium,Total 8.4 mg/dL (8.5-10.1); Chloride 113 mmol/L (98-107); Creatinine, Serum 0.94 mg/dL (0.70-1.30); EST Glomerular Filtration Rate 84 mL/min (>60); Est Glom Filt Rate - Afr Amer 102 mL/min (>60); Globulin 3.4 g/dL (2.2-4.2); Glucose 113 mg/dL (74-106); Protein, Total 6.7 g/dL (6.4-8.2); Sodium Level 140 mmol/L (136-145)
== END ==
LOC: OLS.SW 07:58
PROVIDERS: PCP Internal Medicine; Referring Provider Internal Medicine; Visit Provider Internal Medicine
DX: E11.9 Type 2 diabetes mellitus without complications (principal); Z86.73 Personal history of transient ischemic attack (TIA), and cerebral infarction without residual deficits; Z79.01 Long term (current) use of anticoagulants
CPT/HCPCS: 36415; 80053; 85025; 85610

== ENCOUNTER → 2024-09-28 | Outpatient (REF) | payer MEDICARE, MEDICAID, SELFPAY | LOC: OLS.SW 05:00 | PROVIDERS: PCP Internal Medicine; Visit Provider Internal Medicine | DX: Z79.899 Other long term (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 (principal) | CPT/HCPCS: 36415; 82140 ==

== ENCOUNTER → 2024-10-22 | Outpatient (REF) | payer MEDICARE, MEDICAID, SELFPAY ==
[2024-10-22 08:59] LABS: Hemoglobin A1c 6.3 % (3.8-5.6)
== END ==
LOC: OLS.SW 05:00
PROVIDERS: PCP Internal Medicine; Visit Provider Internal Medicine
DX: E11.9 Type 2 diabetes mellitus without complications (principal)
CPT/HCPCS: 36415; 83036

== ENCOUNTER → 2024-10-26 | Outpatient (REF) | payer MEDICARE, MEDICAID, SELFPAY | LOC: OLS.SW 04:00 | PROVIDERS: PCP Internal Medicine; Referring Provider Internal Medicine; Visit Provider Internal Medicine | DX: Z79.899 Other long term (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 (principal) | CPT/HCPCS: 36415; 82140 ==

== ENCOUNTER → 2024-11-23 | Outpatient (REF) | payer MEDICARE, MEDICAID, SELFPAY | LOC: OLS.SW 05:00 | PROVIDERS: PCP Internal Medicine; Visit Provider Internal Medicine | DX: G93.41 Metabolic encephalopathy (principal) | CPT/HCPCS: 36415; 82140 ==

== ENCOUNTER → 2024-12-21 05:00 | Outpatient (REF) | payer MEDICARE, MEDICAID, SELFPAY | LOC: OLS.SW 05:00 | PROVIDERS: PCP Internal Medicine; Visit Provider Internal Medicine | DX: G93.41 Metabolic encephalopathy (principal) | CPT/HCPCS: 36415; 82140 ==

== ENCOUNTER → 2025-01-18 | Outpatient (REF) | payer MEDICARE, MEDICAID, SELFPAY ==
[2025-01-18 07:05] LABS: Ammonia < 10.0 umol/L (16-60)
== END ==
LOC: OLS.SW 05:00
PROVIDERS: PCP Internal Medicine; Visit Provider Internal Medicine
DX: G93.41 Metabolic encephalopathy (principal)
CPT/HCPCS: 36415; 82140

== ENCOUNTER → 2025-02-15 06:30 | Outpatient (REF) | payer MEDICARE, MEDICAID, SELFPAY ==
[2025-02-15 08:25] LABS: Ammonia 20.8 umol/L (16-60)
== END ==
LOC: OLS.SW 06:30
PROVIDERS: PCP Internal Medicine; Visit Provider Internal Medicine
DX: G93.41 Metabolic encephalopathy (principal)
CPT/HCPCS: 36415; 82140

== ENCOUNTER → 2025-03-11 | Outpatient (REF) | payer MEDICARE, MEDICAID, SELFPAY ==
[2025-03-11 09:55] LABS: Absolute Lymphocyte Count 0.73 X10^3/uL (0.83-4.51); Absolute Neutrophil Count 4.8 X10^3/uL (2.0-7.7); Basophil# 0.03 X10^3/uL; Basophil% 0.5 % (0-1); Eosinophil# 0.28 X10^3/uL; Eosinophils% 4.5 % (0-5); Hematocrit 37.5 % (40-54); Lymphocyte # 0.73 X10^3/ul (0.83-4.51); Lymphocyte % 11.6 % (19-41); Mean Corpuscular Hgb 32.2 pg (27.0-32.0); Mean Corpuscular Volume 100.5 fL (80-94); Mean Platelet Vol. 11.6 fl (6.2-12.0); Monocyte# 0.43 X10^3/uL; Monocyte% 6.8 % (0-10); NRBC Flagged by Analyzer 0 % (0-5); Neutrophil # 4.78 X10^3/uL (2.7-7.7); Platelet Count 135 K/mm3 (150-450); RBC Distribution Width CV 14.8 % (11.6-14.6); RBC Distribution Width SD 55.4 fl (35.1-43.9); Red Blood Count 3.73 M/mm3 (4.6-6.2); White Blood Count 6.3 K/mm3 (4.4-11.0)
[2025-03-11 10:11] LABS: ALB/GLOB Ratio 1.2 RATIO (0.9-2.4); AST(SGOT) 15 U/L (<=37); Alanine Aminotransfer ALT/SGPT 5 U/L (<=46); Albumin, Serum 3.6 g/dL (3.4-4.8); Alkaline Phosphatase 71 U/L (40-129); Anion Gap 9 (5-15); BUN 18 mg/dL (4-19); BUN/Creat Ratio 17.9 RATIO (10-20); Carbon Dioxide 17.5 mmol/L (21.0-32.0); Chloride 111 mmol/L (98-108); Creatinine, Serum 0.99 mg/dL (0.70-1.20); EST Glomerular Filtration Rate 81 (>60); Globulin 3.1 g/dL (2.2-4.2); Glucose 99 mg/dL (70-99); Protein, Total 6.7 g/dL (5.9-8.4); Sodium Level 137 mmol/L (133-145); Total Bilirubin 0.44 mg/dL (0.00-1.30)
[2025-03-11 10:13] LABS: International Normalized Ratio 1.4; Prothrombin Time (Protime)PT. 17.7 SECONDS (11.7-14.9)
== END ==
LOC: OLS.SW 05:00
PROVIDERS: PCP Internal Medicine; Visit Provider Internal Medicine
DX: K74.60 Unspecified cirrhosis of liver (principal)
CPT/HCPCS: 36415; 80053; 85025; 85610

== ENCOUNTER → 2025-03-15 | Outpatient (REF) | payer MEDICARE, MEDICAID, SELFPAY ==
[2025-03-15 07:46] LABS: Ammonia 22.5 umol/L (16-60)
== END ==
LOC: OLS.SW 06:40
PROVIDERS: PCP Internal Medicine; Visit Provider Internal Medicine
DX: G93.41 Metabolic encephalopathy (principal)
CPT/HCPCS: 36415; 82140

== ENCOUNTER → 2025-04-12 05:00 | Outpatient (REF) | payer MEDICARE, MEDICAID, SELFPAY ==
[2025-04-12 07:06] LABS: Ammonia 22.3 umol/L (16-60)
== END ==
LOC: OLS.SW 05:00
PROVIDERS: PCP Internal Medicine; Visit Provider Internal Medicine
DX: G93.41 Metabolic encephalopathy (principal)
CPT/HCPCS: 36415; 82140

== ENCOUNTER → 2025-04-24 | Outpatient (REF) | payer MEDICARE, MEDICAID, SELFPAY ==
[2025-04-24 07:50] LABS: Hematocrit 38.5 % (40-54); Hemoglobin 12.4 g/dL (13.0-16.5); Mean Corp Hgb Conc 32.2 g/dL (32-36); Mean Corpuscular Hgb 32.4 pg (27.0-32.0); Mean Corpuscular Volume 100.5 fL (80-94); Mean Platelet Vol. 11.5 fl (6.2-12.0); Platelet Count 125 K/mm3 (150-450); RBC Distribution Width CV 14.4 % (11.6-14.6); RBC Distribution Width SD 52.8 fl (35.1-43.9); Red Blood Count 3.83 M/mm3 (4.6-6.2); White Blood Count 5.5 K/mm3 (4.4-11.0)
[2025-04-24 08:33] LABS: Anion Gap 8 (5-15); BUN 18 mg/dL (4-19); BUN/Creat Ratio 17.5 RATIO (10-20); Calcium,Total 8.7 mg/dL (7.6-11.0); Carbon Dioxide 20.4 mmol/L (21.0-32.0); Chloride 107 mmol/L (98-108); Creatinine, Serum 1.01 mg/dL (0.70-1.20); EST Glomerular Filtration Rate 79 (>60); Glucose 129 mg/dL (70-99); Potassium 4.4 mmol/L (3.3-5.1); Sodium Level 135 mmol/L (133-145)
== END ==
LOC: OLS.SW 05:55
PROVIDERS: PCP Internal Medicine; Referring Provider Internal Medicine; Visit Provider Internal Medicine
DX: E11.9 Type 2 diabetes mellitus without complications (principal)
CPT/HCPCS: 36415; 80048; 85027

== ENCOUNTER → 2025-05-14 05:00 | Outpatient (REF) | payer MEDICARE, MEDICAID, SELFPAY ==
[2025-05-14 08:58] LABS: Ammonia 20.1 umol/L (16-60)
== END ==
LOC: OLS.SW 05:00
PROVIDERS: PCP Internal Medicine; Visit Provider Internal Medicine
DX: G93.41 Metabolic encephalopathy (principal); Z79.899 Other long term (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
CPT/HCPCS: 36415; 82140

== ENCOUNTER → 2025-05-21 | Outpatient (REF) | payer MEDICARE, MEDICAID, SELFPAY ==
--- OUTSIDE RECORDS SUMMARY | 2025-05-21 04:19 | XMS RPT_ITS | CCD ---
Author Organization [facility] Care Team Providers [facility] Assistant Name Role Phone Manuel Beebe MD Primary Care Provider Cosme Gonzáles Unavailable Dinorah WINSTON, Albino Fuentes Unavailable Unavailtu [facility], Keti Unavailable Unavailable Primary Care Provider Dr. Manuel Granger Primary Care Provider Dr. Seferino Villalobos Attending Provider Dr. Erik Saravia Referring Provider Dr. Manuel Beebe Referring Provider Dr. Adilson Sal Attending Provider Dr. Cosme Gonzáles Attending Provider Dr. Cosme Gonzáles Referring Provider Dr. Adilson Sal Referring Provider Tahmina Vyas Attending Provider Unavailable No, Physician Primary Care Provider Masood Osorio RN, Lorrie Unavailable Dinorah Posada (Rn) Unavailable Dr. Manuel Beebe Primary Care Provider Dr. Adilson Sal Attending Provider Dr. Manuel Beebe Referring Provider Dr. Manuel Beebe Primary Care Provider Dr. Cosme Gonzáles Attending Provider Dr. Joey Dee Emergency Provider Dr. Goldy Delatorre Admit Provider Dr. Goldy Delatorre Attending Provider Dr. Goldy Delatorre Other Provider Dr. Maximo Addison Attending Provider Dr. Maximo Addison Other Provider Manuel Beebe MD Primary Care Provider Dr. Manuel Beebe Primary Care Provider Dr. Adilson Sal Attending Provider Dr. Adilson Sal Referring Provider Dr. Manuel Beebe Referring Provider Dr. Cosme Gonzáles Attending Provider Tahmina Vyas Attending Provider Unavailable Dr. Dwayne Horton Attending Provider Dr. Manuel Beebe Primary Care Provider Dr. Adilson Sal Attending Provider Dr. Adilson Sal Referring Provider Manuel Beebe MD Primary Care Provider Cosme Gonzáles Unavailable Dinorah RN, Albino M Unavailable Unavailabl hiram [facility], Jana Unavailable MUNIRA DICKERSON Referring Unavailable MUNIRA DICKERSON Attending Unavailable MANUEL BEEBE Primary Care Unavailable VIAMUNIRA Manjarrez Referring Unavailable VIAMUNIRA Manjarrez Attending Unavailable MANUEL BEEBE Primary Care Unavailable NO, PHYSICIAN Primary Care Unavailable SRIDHAR PRADO Consulting Unavailable SYSTEM, PROVIDER NOT IN Referring Unavaila AUSTIN Hernandez Admitting Unavailable NICOLE VIERA Attending Unavailabl e MUNIRA DICKERSON Attending Unavailable NO, PHYSICIAN Primary Care Unavailable VIAMUNIRA Manjarrez Referring Unavailable VIAMUNIRA Manjarrez Attending Unavailable NO, PHYSICIAN Primary Care Unavailable VIAU, MUNIRA ROMERO Referring Unavailable MANUEL BEEBE Primary Care Unavailable VIAU, MUNIRA ROMERO Referring Unavailable VIAU, MUNIRA ROMERO Attending Unavailable TUMUAMBROSIO Referring Unavailab le VIAU, MUNIRA ROMERO Attending Unavailable MANUEL BEEBE Primary Care Unavailable Dr. Manuel Beebe Primary Care Provider Dr. Adilson Sal Attending Provider Cosme Gonzáles S Unavailable [facility], Keti Unavailable Dr. Manuel Beebe Primary Care Provider Dr. Manuel Beebe Referring Provider Dr. Adilson Sal Attending Provider Albino WINSTON, Dinorah Fuentes Unavailable Unavailabl e Maneul Beebe MD Primary Care Provider Nivia, Cosme S Unavailable Albino WINSTON, Dinorah Fuentes Unavailable Unavailabl e [facility], Keti Unavailable Dr. Manuel Beebe Primary Care Provider Dr. Manuel Beebe Referring Provider Dr. Adilson Sal Attending Provider Dr. Dwayne Horton Attending Provider So FORREST, [place] Maye Fuentes Attending Provider Dr. Cosme Gonzáles Attending Provider [phone] Manuel Beebe Primary Care Provider Dr. Manuel Beebe Referring Provider Dr. Jerry De Paz Attending Provider Dr. Manuel Beebe Primary Care Provider Dr. Manuel Beebe Referring Provider Dr. Cosme Gonzáles Attending Provider [phone] Dwayne Horton Referring Provider Dr. Dwayne Horton Attending Provider Dr. Adilson Sal Attending Provider Dr. Manuel Beebe Primary Care Provider Dr. Manuel Beebe Referring Provider Dr. Dwayne Horton Attending Provider Dr. Adilson Sal Attending Provider Dr. Cosme Gonzáles Attending Provider Tahmina Vyas Attending Provider Unavailable MD Victorino Badillo Emergency Provider Dr. Michael Jacobs Admit Provider Unavailable Arlene, Dr. Rodriguez Attending Provider Unavailable Dr. Michael Jacobs Other Provider Unavailable Yue, Dr. Fior Bravo Attending Provider Dr. Fior Turner Other Provider Dr. Manuel Beebe Primary Care Provider Parker, Dr. Manuel Quarles Referring Provider Dr. Jo-Ann Bliss Emergency Provider Dr. Norris Orellana Admit Provider Dr. Norris Orellana Attending Provider Dr. Norris Orellana Other Provider Dr. Maximo Addison Other Provider Dr. Goldy Olivia Emergency Provider Dr. Fior Turner Admit Provider Dr. Wallace Durham Other Provider Dr. Freddy Benitez Attending Provider Dr. Maximo Addison Attending Provider Dr. Manuel Beebe Primary Care Provider Dr. Manuel Beebe Referring Provider Dr. Cosme Gonzáles Attending Provider Tahmina Vyas Attending Provider Unavailable MD Victorino Badillo Emergency Provider Dr. Michael Jacobs Admit Provider Unavailable Arlene, Dr. Rodriguez Attending Provider Unavailable Arlene, Dr. Rodriguez Other Provider Unavailable Yue, Dr. Fior Bravo Attending Provider Yue, Dr. Fior Bravo Other Provider Dr. Jo-Ann Bliss Emergency Provider Esteban, Dr. Pisano Admit Provider Dr. Norris Orellana Attending Provider Esteban, Dr. Pisano Other Provider Dr. Maximo Addison Other Provider Dr. Goldy Olivia Emergency Provider Dr. Fior Turner Admit Provider Dr. Wallace Durham Other Provider Dr. Freddy Benitez Attending Provider Dr. Maximo Addison Attending Provider Dr. Manuel Beebe Primary Care Provider Symone LCSW, LCSW-C Martha Attending Provider Natalia Dr. Azael Demarco Attending Provider Dr. Manuel Beebe Referring Provider So FORREST, [place] Maye Fuentes Attending Provider Dr. Juan Conte Emergency Provider Dr. Maximo Addison Admit Provider Dr. Quynh Araya Attending Provider Dr. Quynh Araya Other Provider MD Chandana Jain Other Provider MD Chandana Jain Attending Provider Nivia, Cosme S Unavailable Albino WINSTON, Dr. Norris Gonzalez Referring Provider Dr. Adilson Sal Attending Provider Nivia BUSTILLO, [place] S Unavailable Dr. Manuel Beebe Primary Care Provider Symone LCSW, LCSW-C Martha Attending Provider Kamini Turner, Dr. Fior Bravo Attending Provider Yue, Dr. Fior Bravo Other Provider Dr. Maximo Addison Other Provider Dr. Norris Orellana Attending Provider Dr. Norris Orellana Other Provider Dr. Manuel Beebe Primary Care Provider Dr. Goldy Olivia Emergency Provider Yue, Dr. Fior Bravo Admit Provider Dr. Fior Turner Other Provider Dr. Manuel Beebe Primary Care Provider Dr. Maximo Addison Attending Provider Dr. Maximo Addison Other Provider [facility], Keti Unavailable Dr. Manuel Beebe Primary Care Provider Dr. Juan Conte Emergency Provider Dr. Maximo Addison Admit Provider Dr. Maximo Addison Other Provider Dr. Norris Orellana Attending Provider Dr. Norris Orellana Other Provider Dr. Quynh Araya Other Provider MD Chandana Jain Other Provider Dr. Adilson Sal Attending Provider Nivia, Dr. Aguiar Attending Provider Dr. Manuel Beebe Referring Provider Dr. Dwayne Horton Attending Provider Dr. Manuel Beebe Primary Care Provider Nivia, Dr. Aguiar Attending Provider Parker, Dr. Manuel Quarles Primary Care Provider Dr. Manuel Beebe Referring Provider Nivia, Dr. Aguiar Attending Provider Dr. Dwayne Horton Attending Provider Cosme Gonzáles MD Unavailable Elisa Narvaez MD Primary Care Provider MANUEL BEEBE Primary Care Unavailable MUNIRA DICKERSON Attending Le Beebe MD, Dr. Manuel Quarles Primary Care Provider Dr. Elisa Narvaez MD Attending Provider Arnold Narvaez MD, Dr. Pérez Referring Provider Arnold Gonzáles MD, Dr. Aguiar Attending Provider Parker BUSTILLO, Dr. Manuel Quarles Referring Provider Maye Hall Attending Provider Dr. Dwayne Horton MD Attending Provider Parker BUSTILLO, Dr. Manuel Quarles Primary Care Provider Dr. Elisa Narvaez MD Attending Provider Arnold Beebe MD, Dr. Manuel Quarles Primary Care Provider Dr. Elisa Narvaez MD Attending Provider Manuel Pena Primary Care Unavailable Elisa Villatoro Attending Unavailable Talampas, Manuel D Primary Care Unavailable Gudla OLS, Elisa Attending Unavailable Gudla OLS, Elisa Referring Unavailable Talampas, Manuel D Primary Care Unavailable Gudla OLS, Elisa Attending Unavailable Talampas, Manuel D Primary Care Unavailable Gudla OLS, Elisa Attending Unavailable Talampas, Manuel D Primary Care Unavailable Gudla OLS, Elisa Attending Unavailable Nivia, Cosme Attending Unavailable Talampas, Manuel D Primary Care Unavailable Talampas, Manuel D Primary Care Unavailable Gudla OLS, Elisa Attending Unavailable Talampas, Manuel D Primary Care Unavailable Gudla OLS, Elisa Attending Unavailable Talampas, Manuel D Primary Care Unavailable Gudla OLS, Elisa Attending Unavailable Talampas, Manuel D Primary Care Unavailable Gudla OLS, Elisa Attending Unavailable Talampas, Manuel D Primary Care Unavailable Gudla OLS, Elisa Attending Unavailable Talampas, Manuel D Primary Care Unavailable Gudla OLS, Elisa Attending Unavailable Talampas, Manuel D Primary Care Unavailable Gudla OLS, Elisa Attending Unavailable Gudla OLS, Elisa Referring Unavailable Gudla OLS, Elisa Attending Unavailable Talampas, Manuel D Primary Care Unavailable Gudla OLS, Elisa Attending Unavailable Talampas, Manuel D Primary Care Unavailable Talampas, Manuel D Primary Care Unavailable Dwayne Horton Attending Unavailable Talampas, Manuel D Referring Unavailable Talampas, Manuel D Primary Care Unavailable Gudla OLS, Elisa Attending Unavailable Gudla OLS, Elisa Referring Unavailable Talampas, Manuel D Primary Care Unavailable Gudla OLS, Elisa Attending Unavailable Talampas, Manuel D Primary Care Unavailable Gudla OLS, Elisa Attending Unavailable Talampas, Manuel D Primary Care Unavailable Gudla OLS, Elisa Attending Unavailable Maye Hall Attending Unavail able Talampas, Manuel D Primary Care Unavailable Talampas, Manuel D Referring Unavailable Nivia, [place] Attending Unavailable Talampas, Manuel D Primary Care Unavailable Nivia, [place] Attending Unavailable Talampas, Manuel D Primary Care Unavailable Dwayne Horton Attending Unavailable Talampas, Manuel D Primary Care Unavailable Talampas, Manuel D Referring Unavailable Cosme Gonzáles Attending Unavailable Talampas, Manuel D Primary Care Unavailable Talampas, Manuel D Primary Care Unavailable Gudla Elisa SERRANO Attending Unavailable GUDLA, ELISA D Primary Care Unavailable MERLIN LOREDO Referring Unavailable GUDLA, ELISA D Primary Care Unavailable MERLIN LOREDO Referring Unavailable GUDLA, ELISA D Primary Care Unavailable MERLIN LOREDO Referring Unavailable LOREDOMERLIN Manuel Attending Unavailable GUDLA, ELISA D Primary Care Unavailable MASCIJONNATHAN Referring Unavailable BALTA ANNA Attending Unavailable GUDLA, ELISA D Primary Care Unavailable MASCIJONNATHAN A Referring Unavailable GUDLA, ELISA D Primary Care Unavailable LOREDOMERLIN Manuel Referring Unavailable GUDLA, ELISA D Primary Care Unavailable LOREDOMERLIN Manuel Referring Unavailable GUDLA, ELISA D Primary Care Unavailable GUDLA, ELISA D Primary Care Unavailable MERLIN LOREDO Referring Unavailable GUDLA, ELISA D Primary Care Unavailable DWIGHTIJONNATHAN A Referring Unavailable GUDLA, ELISA D Primary Care Unavailable MASCIJONNATHAN A Referring Unavailable GUDLA, ELISA D Primary Care Unavailable MASCIJONNATHAN A Referring Unavailable GUDLA, ELISA D Primary Care Unavailable MASCIJONNATHAN A Referring Unavailable GUDLA, ELISA D Primary Care Unavailable MERLIN LOREDO Referring Unavailable LOREDOMERLIN Manuel Attending Unavailable GUDLA, ELISA D Primary Care Unavailable MASCIJONNATHAN A Referring Unavailable GUDLA, ELISA D Primary Care Unavailable MASCJONNATHAN Martinez Attending Unavailable GUDLA, ELISA D Primary Care Unavailable MAXIMO SERRANO Attending Unavail able GUDLA, ELISA D Primary Care Unavailable MASCIJONNATHAN A Referring Unavailable GUDLA, ELISA D Primary Care Unavailable MERLIN LOREDO Referring Unavailable HELADIO MARIEE Attending Unavailabl e GUDLA, ELISA D Primary Care Unavailable EL LUCIO Attending Unavailable Allergies Allergy Classification Reported Allergen(s) Allergy Type Date of Onset Reaction(s) Facility (20 sources) Acetaminophen / HYDROcodone; Translations: [HYDROCODONE-ACET AMINOPHEN] Drug Allergy 9 Intolerance, Other (See Comments) [facility] Work Phone: (20 sources) metFORMIN; Translations: [METFORMIN] Drug Allergy 1 Diarrhea [facility] Work Phone: (20 sources) oxyCODONE; Translations: [OXYCODONE] Drug Allergy 2 Itching, Headache [facility] (20 sources) Acetaminophen; Translations: [ACETAMINOPHEN] Drug Allergy 2 Other (See Comments) [facility] (10 sources) [place] grass pollen extract; Translations: [ALLERG EX,GRASS POLLEN-BERMUDA] Drug Allergy 9 Unknown [facility] (20 sources) Acetaminophen / oxyCODONE; Translations: [OXYCODONE-ACETAM INOPHEN] Drug Allergy 3 Unknown [facility] (1 source) Acetaminophen Drug Allergy 5 [facility] (1 source) oxyCODONE Drug Allergy 5 [facility] Medications Current Medications Medication Drug Class(es) Dates Sig (Normalized) Sig (Original) acetaZOLAMIDE 250 mg oral tablet (20 sources) Carbonic Anhydrase Inhibitor Start: 2023 take 1 tablet by mouth twice daily acetaZOLAMIDE (DIAMOX) 250 mg tablet Take 250 mg by mouth two times a day. 08/17/2023 Active Comment on above: Take 250 mg by mouth two times a day. Albuterol (20 sources) beta2-Adrenergic Agonist Start: 04-11-2023 take 180 ug by inhalation every six hours Albuterol Active 180 MCG INHALATION EVERY 6 HOURS April 11, 2023 12:00am (2 puffs) Start: 10-30-2018 take 1 puff(s) by in halation every six hours as needed Albuterol Sulfate Active 2 PUFF INHALATION EVERY 6 HOURS NEEDED October 30, 2018 4:06pm Start: 10-30-2018 End: 09-25-2021 take 2 puff(s) by inhalation every six hours as needed for wheezing albuterol HFA (VENTOLIN HFA) 90 mcg/actuation inhaler Indications: Mild intermittent asthma without complication (HCC) Inhale 2 Puffs as instructed every 6 hours as needed for wheezing/shortness of breath. 18 g 2 09/25/2021 Active Comment on above: Inhale 2 Puffs as in structed every 6 hours as needed for wheezing/shortness of breath. aluminum hydroxide 40 mg/ml / magnesium hydroxide 40 mg/ml / simethicone 4 mg/ml oral suspension (20 sources) take 30 mL by mouth every four hours as needed aluminum-magnesium hydroxide-simethic one (MAALOX,MYLANTA,MA G-AL PLUS) 200-200-20 mg/5 mL suspension Take 30 mL by mouth every 4 hours as needed. Active Aluminum-Magnesium Hydroxide 225-200 mg/5 mL suspension (8 sources) Start: 06-19-20 take 1 mL by mouth every four hours as needed Aluminum-Magnesium Hydroxide 225-200 mg/5 mL suspension Active 30 mL PO EVERY 4 HOURS NEEDED June 19, 2024 12:00am Start: 06-21-2023 End: 06-26-2023 take 1 mL by mouth every four hours as needed Aluminum-Magnesium Hydroxide 225-200 mg/5 mL suspension Discontinued 30 mL PO EVERY 4 HOURS NEEDED June 21, 2023 12:00am June 26, 2023 9:26am apixaban 2.5 mg oral tablet (20 sources) Factor Xa Inhibitor Start: 01-24-2025 take 1 tablet by mouth twice daily Apixaban (Eliquis) 2.5 mg tablet Active 2.5 mg PO TWICE A DAY January 24, 2025 12:00am Start: 11-01-2019 End: 01-24-2025 take 1 tablet by mouth twice daily apixaban (ELIQUIS) 5 mg tab(s) Take 1 tablet by mouth twice daily. 60 tablet 11 03/23/2023 Active Comment on above: Take by mouth twice daily. Take 1 tablet by suad twice daily. baclofen 20 mg oral tablet (20 sources) gamma-Aminobutyric Acid-ergic Agonist Start: 06-19-2024 End: 01-24-2025 take 10 mg by mouth three times daily Baclofen 20 mg tablet Discontinued 10 mg PO THREE TIMES A DAY June 19, 2024 2:14pm January 24, 2025 8:45am Start: 06-26-2023 End: 06-26-2023 take 10 mg by mouth three times daily Baclofen Active 10 MG PO THREE TIMES A DAY 90 June 26, 2023 9:29am Start: 03-08-2023 End: 04-11-2024 take 10 mg by mouth three times daily as needed for muscle spasms Baclofen 20 mg tablet Discontinued 10 mg PO THREE TIMES A DAY as needed for BACK spasm June 26, 2023 9:29am February 16, 2024 2:25pm Start: 08-09-2022 End: 06-19-2024 take 1 tablet by mouth three times daily baclofen (LIORESAL) 20 mg tablet Take 20 mg by mouth three times a day. 03/08/2023 Active Start: 05-24-2022 End: 08-09-2022 take 1 tablet by mouth three times daily Baclofen 10 mg tablet Discontinued 10 mg PO THREE TIMES A DAY May 24, 2022 12:00am August 09, 2022 3:44pm Comment on above: Take 20 mg by mouth three times daily. Take 20 mg by mouth three times a day. 10 MG by mouth three times daily as needed bicalutamide 50 mg oral tablet (20 sources) Androgen Receptor Inhibitor Start: 2 take 1 tablet by mouth once daily bicalutamide (CASODEX) 50 mg tablet Take 50 mg by mouth once daily. 12/10/2021 Active Comment on above: Take 50 mg by mouth once daily. bisacodyl 10 mg rectal suppository (20 sources) Stimulant Laxative Start: 3 Bisacodyl 10 mg suppository Active 10 mg RC DAILY as needed for constipation June 21, 2023 12:00am insert 1 suppository rectally as needed for constipation x1 per episode if MOM ineffective Blood-Glucose Meter (4 sources) Start: 2 End: 2 Blood-Glucose Meter Indications: Controlled type 2 diabetes mellitus without complication, with long-term current use of insulin (HCC) Test Two times a day. Insulin Dep? Yes E11.9 DM 2 1 Each 0 02/03/2022 02/04/2022 Active Start: 02-02-2022 End: 02-03-2022 Blood-Glucose Meter Indicati ons: Controlled type 2 diabetes mellitus without complication, with long-term current use of insulin (HCC) Use to test blood sugar. Please fill with brand covered by patient's insurance. 1 Each 0 02/02/2022 02/03/2022 Discontinued Start: 02-02-2022 Blood-Glucose Meter Indications: Controlled type 2 diabetes mellitus without complication, with long-term current use of insulin (HCC) Use to test blood sugar. Please fill with brand covered by patient's insurance. 1 Each 0 02/02/2022 Active Comment on above: Use to test blood carrillo gar. Please fill with brand covered by patient's insurance. Test Two times a day . Insulin Dep? Yes E11.9 DM 2 Budesonide-Formot sudarshan (20 sources) Corticosteroid, beta2-Adrenergic Agonist Start: 04-11-2023 take 1 puff(s) by inhalation twice daily Budesonide-Formoter ol Active 2 PUFF INHALATION TWICE A DAY April 11, 2023 12:00am Start: 04-28-2022 End: 08-28-2024 take 2 puff(s) by inhalation twice daily budesonide-formoterol (SYMBICORT) 80-4.5 mcg/actuation inhaler Inhale 2 Puffs as instructed twice daily. 1 Inhaler 5 04/28/2022 08/28/2024 Discontinued Start: 04-28-2022 take 2 puff(s) by in halation twice daily budesonide-formoterol (SYMBICORT) 80-4.5 mcg/actuation inhaler Inhale 2 Puffs as instructed twice daily. 1 Inhaler 5 04/28/2022 Active Comment on above: Inhale 2 Puffs as in structed twice daily. Calcium (11 sources) Phosphate Binder, Calcium Start: 04-25-2022 take 300 mg by mouth once daily Calcium Active 300 MG PO DAILY April 24, 2022 11:00pm Start: 04-25-2022 take 300 mg by mouth once ben y Calcium Active 300 MG PO DAILY April 25, 2022 12:00am calcium carbonate 1625 mg / cholecalciferol 0.0125 mg / vitamin k 0.04 mg chewable tablet (9 sources) Vitamin D Start: 12-10-2021 calcium-vitami n D3-vitamin K 650 mg-12.5 mcg-40 mcg Chew Chew and Swallow . 0 12/10/2021 Active Start: 12-10-2021 take 1 tablet by suad th once daily Calcium-Vitamin D3-Vitamin K (Viactiv) 650 mg-12.5 mcg-40 mcg tablet,chewable Active 1 TABLET PO DAILY December 10, 2021 11:26am carbidopa 25 mg / levodopa 100 mg oral tablet (20 sources) Aromatic Amino Acid Decarboxylation Inhibitor, Aromatic Amino Acid Start: 2023 End: 06-19-2024 Carbidopa-Levodopa 25-100 mg tablet Active 2 {tbl} PO THREE TIMES A DAY June 19, 2024 2:17pm Start: 2023 take 1 tablet by suad th three times daily Carbidopa-Levodopa Active 1 TABLET PO THREE TIMES A DAY 2023 12:00am Start: 2023 Start: 12-23-2022 End: 04-11-2023 Carbidopa-Levodopa 25-100 mg tablet Discontinued 1 {tbl} PO THREE TIMES A DAY December 24, 2022 12:00am April 11, 2023 4:51pm Start: 12-23-2022 End: 04-11-2023 take 1 tablet by mouth three times daily Carbidopa-Levodopa Discontinued 1 TABLET PO THREE TIMES A DAY December 24, 2022 12:00am April 11, 2023 4:51pm Start: 12-23-2022 End: 12-23-2022 take 1 tablet by mouth once daily, then take 1 tablet by mouth twice daily, then take 1 tablet by mouth three times daily Carbidopa-Levodopa 25-100 mg tablet Discontinued 1 {tbl} PO .COMPLEX December 23, 2022 4:22pm December 24, 2022 12:00am 1 Tab PO daily for one week then 1 tab BID for one week then 1 tab TID thereafter; Do not take within 2 hours of iron supplement dose Start: 12-23-2022 End: 12-23-2022 take 1 tablet by mouth once daily, then take 1 tablet by mouth twice daily, then take 1 tablet by mouth three times daily Carbidopa-Levodopa Discontinued 1 TABLET PO .COMPLEX December 23, 2022 4:22pm December 24, 2022 12:00am 1 Tab PO daily for one week then 1 tab BID for one week then 1 tab TID thereafter; Do not take within 2 hours of iron supplement dose Start: 12-23-2022 End: 04-11-2023 Comment on above: Take 1 tablet by suad th three times daily. carvedilol 3.125 mg oral tablet (20 sources) alpha-Adrenergic Zeeshan, beta-Adrenergic Zeeshan Start: 03-23-2023 End: 04-12-2023 take 1 tablet by mouth twice daily at mealtime carvedilol (COREG) 6.25 mg tablet Take 1 tablet by mouth twice daily with meals. 60 tablet 11 03/23/2023 04/12/2023 Discontinued (Side Effects) Start: 03-10-2023 End: 03-10-2023 take 1 tablet by mouth twice daily at mealtime Carvedilol 6.25 mg tablet Discontinued 6.25 mg PO TWICE A DAY 60 March 10, 2023 12:00am March 10, 2023 12:05pm must administer with a meal/food Start: 09-09-2022 End: 04-12-2023 take 1 tablet by mouth twice daily carvedilol (COREG) 3.125 mg tablet Take 1 tablet by mouth twice daily. 60 tablet 1 04/12/2023 Active Comment on above: TAKE 1 TABLET BY SUAD TH TWICE DAILY WITH MEAL/FOOD Take 1 tablet by suad th twice daily. In addition to 3.125mg in packets from [facility] Take 1 tablet by suad th twice daily with meals. Take 1 tablet by suad th twice daily. cholecalciferol 0.05 mg oral capsule (20 sources) Vitamin D Start: 10-06-20 take 1 capsule by mouth once daily Cholecalciferol (Vitamin D3) 50 mcg (2,000 unit) capsule Active 50 ug PO DAILY October 06, 2023 1:00am take 1 tablet by mouth once ben y cholecalciferol (VITAMIN D-3) 50 mcg (2,000 unit) tablet Take 2,000 Units by mouth once daily. Active ciprofloxacin 500 mg oral tablet (1 source) Quinolone Antimicrobial Start: 01-06-2022 take 1 tablet by mouth twice daily Ciprofloxacin Hcl (Cipro) 500 mg tablet Active 500 MG PO TWICE A DAY January 06, 2022 9:17am COMPOUNDED PRESCRIPTION (20 sources) Start: 11-10-2018 COMPOUNDED PRESCRIPTION Indications: History of stroke , Left-sided weakness Four point cane Dx: Z86.73, R53.1 1 Each 11/10/2018 Active Start: 11-10-2018 COMPOUNDED PRE SCRIPTION Indications: History of stroke , Left-sided weakness Four point cane Dx: Z86.73, R53.1 1 Each 0 11/10/2018 Active Comment on above: Four point cane Dx: Z86.73, R53.1 CPAP (20 sources) Start: 08-10-2018 CPAP BiPAP @ 9 /13 cm of water with humidification. lifetime supplies. Dx ALBINO 1 Device 08/10/2018 Active Start: 08-10-2018 CPAP BiPAP @ 9 /13 cm of water with humidification. lifetime supplies. Dx ALBINO 1 Device 0 08/10/2018 Active Comment on above: BiPAP @ 9/13 cm of w ater with humidification. lifetime supplies. Dx ALBINO diclofenac sodium 0.01 mg/mg topical gel (16 sources) Nonsteroidal Anti-inflammatory Drug Start: 01-25-20 apply 2 g topically every twelve hours as needed Diclofenac Sodium 1 % gel Active 2 g TOPICAL Q12H as needed January 24, 2025 12:00am apply to single elbow, wrist or hand; for hand includes palm/fingers/back of hand diclofenac (VOLT AREN ARTHRITIS PAIN) 1 % topical gel Apply one application to right hip topically every 12 hours as needed for pain. Active docusate sodium 100 mg oral capsule (20 sources) Start: 2023 take 1 capsule by mouth twice daily docusate sodium (COLACE) 100 mg capsule Take 100 mg by mouth two times a day. 2023 Active Comment on above: Take 100 mg by mouth two times a day. 0.85 ml exenatide 2.35 mg/ml auto-injector (16 sources) GLP-1 Receptor Agonist Start: 06-19-2024 inject 2 mg by subcutaneous injection every week ENDY BCI 2 mg/0.85 mL injection Inject 2 mg subcutaneously one time a week. 07/16/2024 Active 30 actuat fluticasone furoate 0.1 mg/actuat / vilanterol 0.025 mg/actuat dry powder inhaler (20 sources) Corticosteroid , beta2-Adrenerg ic Agonist Start: 04-11-2023 Fluticasone Furoate-Vilanterol Active 1 EACH INHALATION DAILY April 11, 2023 12:00am Start: 04-28-2022 End: 03-06-2025 take 1 dose by inhalation once daily fluticasone-vilanterol (BREO ELLIPTA) 100-25 mcg/dose inhaler Inhale 1 Inhalation as instructed once daily. 1 Each 5 04/28/2022 03/06/2025 Discontinued Comment on above: Inhale 1 Inhalation as instructed once daily. FreeStyle Lite Meter kit (8 sources) Start: 02-03-2022 FreeStyle Lite Meter kit See Admin Instructions USE TO TEST BLOOD GLUCOSE TWICE DAILY . 0 02/03/2022 Active glucagon (rdna) 1 mg injection (4 sources) Antihypoglycemic Agent Start: 01-24-2025 Glucagon 1 mg recon soln Active 1 mg SC Q20M as needed January 24, 2025 12:00am until target blood sugar attained GLUCAGON EMERGENCY KIT, HUMAN, INJECTION (20 sources) GLUCAGON EMERGEN CY KIT, HUMAN, INJECTION Inject 1 mL subcutaneously as needed. Active GLUCAGON EMERGEN CY KIT, HUMAN, INJECTION Inject 1 mL subcutaneously as needed. 0 Active inject 1 mL by subcu taneous injection once GLUCAGON EMERGENCY KIT, HUMAN, INJECTION Inject subcutaneously one time only. 1 mL 0 Active Comment on above: Inject subcutaneousl y one time only. 1 mL glucose 0.4 mg/mg oral gel (20 sources) Start: 04-23-2023 Dextrose (Glucose Gel) 40 % Gel Active 15 g PO Q15M as needed for Hypoglycemia April 23, 2023 12:00am until symptoms of low blood sugar are controlled Start: 04-23-2023 Dextrose (Gluc ose Gel) 40 % Gel Active 15 GM PO Q15M April 23, 2023 12:00am until symptoms of low blood sugar are controlled Start: 04-23-2023 dextrose (GLUCOS E GEL ORAL) Take 1 Dose by mouth as needed. Active dextrose (GLUCOS E GEL ORAL) Take 1 Dose by mouth as needed. 0 Active guaiFENesin 20 mg/ml oral solution (20 sources) Start: 06-19-2024 take 200 mg by mouth every four hours as needed Guaifenesin 100 mg/5 mL liquid Active 200 mg PO Q4H as needed June 19, 2024 12:00am take 10 mL by mouth every four hours as needed GUAIFENESIN ORAL Take 10 mL by mouth eugenia ry 4 hours as needed. Active take 10 mL by mouth every four hours as needed GUAIFENESIN ORAL Take 10 mL by mouth eugenia ry 4 hours as needed. 0 Active 3 ml insulin glargine 100 unt/ml pen injector (20 sources) Insulin Analog Start: 01-24-2025 Insulin Glargi ne 100 unit/mL (3 mL) insulin pen Active 10 U SC EVERY EVENING January 24, 2025 8:33am Hold if glucose less than 130 mg/dl Start: 06-19-2024 End: 01-24-2025 Insulin Glargine 100 unit/mL (3 mL) insulin pen Discontinued 8 U SC DAILY June 19, 2024 2:15pm January 24, 2025 8:45am Hold if glucose less than 130 mg/dl Start: 06-26-2023 End: 06-19-2024 Insulin Glargine 100 UNIT/ML insulin pen Discontinued 10 U SC DAILY June 26, 2023 9:22am June 19, 2024 2:23pm Hold if glucose less than 130 mg/dl Start: 03-23-2023 insulin glargi ne (BASAGLAR KWIKPEN U-100 INSULIN) 100 unit/mL (3 mL) Indications: diabetes mellitus Inject 27 Units subcutaneously daily at bedtime. Adjust dose as directed 9 mL 2 03/23/2023 Active Start: 10-30-2018 inject 27 [IU] by carrillo bcutaneous injection at bedtime Insulin Glargine Active 27 UNIT SQ AT BEDTIME October 30, 2018 4:11pm Start: 10-30-2018 inject 28 [IU] by carrillo bcutaneous injection at bedtime Insulin Glargine Active 28 UNIT SQ AT BEDTIME October 30, 2018 4:11pm Start: 10-30-2018 End: 03-23-2023 insulin glargine (BASAGLAR K WIKPEN U-100 INSULIN) 100 unit/mL (3 mL) Indications: diabetes mellitus Inject 27 Units subcutaneously daily at bedtime. Adjust dose as directed 9 mL 2 03/23/2023 Active Start: 10-30-2018 End: 06-26-2023 Insulin Glargine 100 UNIT/ML insulin pen Discontinued 37 U SC AT BEDTIME October 30, 2018 1:00am June 26, 2023 9:22am Start: 10-30-2018 End: 06-26-2023 Start: 10-30-2018 End: 04-16-2022 insulin glargine (BASAGLAR K WIKPEN U-100 INSULIN) 100 unit/mL (3 mL) Indications: diabetes mellitus Inject 29 Units subcutaneously daily at bedtime. Adjust dose as directed 5 Pen 11 01/12/2022 04/16/2022 Discontinued (Adjust Sig - Block E-Cancel) Start: 10-30-2018 inject 27 [IU] by carrillo bcutaneous injection at bedtime Insulin Glargine Active 27 UNIT SQ AT BEDTIME October 30, 2018 1:00am Start: 10-30-2018 inject 27 [IU] by carrillo bcutaneous injection at bedtime Insulin Glargine Active 27 UNIT SQ AT BEDTIME October 30, 2018 1:00am Comment on above: Inject 29 Units subc utaneously daily at bedtime. Adjust dose as directed Inject 10 Units subc utaneously daily at bedtime. Adjust dose as directed Inject 27 Units subc utaneously daily at bedtime. Adjust dose as directed lactulose 667 mg/ml oral solution (20 sources) Osmotic Laxative Start: 06-19-2024 Lactulose 20 gram/30 mL solution Active 30 g PO THREE TIMES A DAY June 19, 2024 2:19pm Hold if more than 3 bowel movements per day Start: 06-26-2023 End: 06-19-2024 Lactulose 20 gram/30 mL Solu tion Discontinued 20 g PO THREE TIMES A DAY 2880 June 26, 2023 12:00am June 19, 2024 2:23pm Hold if more than 3 bowel movements per day Start: 06-26-2023 take 20 g by mouth t hree times daily lactulose 20 gram/30 mL solution Take 20 g by mouth three times a day. 30mL 0 08/27/2023 Active Start: 06-21-2023 End: 10-06-2023 take 10 g by mouth once daily Lactulose 10 gram packet Discontinued 10 g PO DAILY June 21, 2023 12:00am October 06, 2023 4:59pm take 45 mL by mouth three times daily lactulose 20 gram/30 mL solution Take 45 mL by mouth three times a day. Active Comment on above: Take 20 g by mouth t hree times a day. 30mL lisinopril 5 mg oral tablet (20 sources) Angiotensin Converting Enzyme Inhibitor Start: 10-06-2023 take 1 tablet by mouth once daily Lisinopril 5 mg tablet Active 5 mg PO DAILY October 06, 2023 1:00am Start: 2023 End: 10-06-2023 Lisinopril 20 mg tablet Disc ontinued 20 mg PO DAILY 2023 12:00am October 06, 2023 5:00pm On Hold: Hold for 7 days and repeat BMP. If blood pressure is high more than 140 mmHg, resume at lower dose 5 mg daily. Start: 10-30-2018 End: 08-28-2024 take 1 tablet by mouth once daily Lisinopril 40 mg tablet Discontinued 40 mg PO DAILY September 09, 2022 12:00am 2023 2:31pm On Hold: Resume on 04/26/23. Comment on above: Take 1 tablet by suad th once daily. LORazepam 0.5 mg oral tablet (2 sources) Benzodiazepine Start: 2 take 0.5 mg by mouth at bedtime as needed Lorazepam Active 0.5 MG PO AT BEDTIME NEEDED 7 7 April 01, 2022 6:57pm Magnesium Hydroxide (20 sources) Start: take 1 mL by mouth once daily as needed Magnesium Hydroxide (Milk Of Magnesia) 400 mg/5 mL suspension Active 30 mL PO daily as needed January 24, 2025 12:00am magnesium hydrox joe (MILK OF MAGNESIA ORAL) Take 30 mL by mouth as needed. Active magnesium hydrox joe (MILK OF MAGNESIA ORAL) Take 30 mL by mouth as needed. 0 Active menthol 100 mg/ml / methyl salicylate 150 mg/ml topical cream (20 sources) Start: 06-19-2024 Methyl Salicyl ate-Menthol (Muscle Rub) 15-10 % cream Active 1 NMA TOPICAL DAILY June 19, 2024 12:00am right hip methyl salicylat e-menthol (MUSCLE RUB) 15-10 % topical cream Apply to right hip topically in the morning for pain. Active mineral oil 1000 mg/ml enema (4 sources) Start: 06-19-2024 Mineral Oil (F leet Mineral Oil) enema Active 118 mL RC DAILY as needed June 19, 2024 12:00am discard any unused portion multivitamin (THERAGRAN) per tablet (11 sources) take 1 tablet by mouth once daily multivitamin (THERAGRAN) per tablet Take 1 tablet by mouth daily . 0 Active Multivitamin ORAL capsule (20 sources) take 1 capsule by mouth once daily Multivitamin ORAL capsule Take 1 capsule by mouth once daily. Active take 1 capsule by mouth once yakelin ly Multivitamin ORAL capsule Take 1 capsule by mouth once daily. 0 Active Comment on above: Take 1 capsule by mo mdh once daily. Multivitamin preparation (20 sources) Start: 02-19-2022 take 1 tablet by mouth once daily Multivitamin Active 1 TABLET PO DAILY February 19, 2022 11:48am Start: 02-19-2022 take 1 tablet by suad once daily Multivitamin Active 1 TABLET PO DAILY February 18, 2022 11:00pm Start: 02-19-2022 take 1 tablet by suad th once daily Multivitamin Active 1 TABLET PO DAILY February 19, 2022 12:00am Multivitamin Tablet (4 sources) Start: 02-19-2022 Multivitamin Tablet Active 1 {tbl} PO DAILY February 19, 2022 12:00am Mv,Ca,Lky-Mjko-Je-Ly copene (Centrum Ultra Men's) 8 mg iron- 200 mcg-600 mcg tablet (1 source) Start: 12-10-2021 Mv,Ca,Jnz-Oklh-Qs-L ycopene (Centrum Ultra Men's) 8 mg iron- 200 mcg-600 mcg tablet Active 1 TABLET PO DAILY December 10, 2021 11:26am nitroglycerin 0.4 mg sublingual tablet (20 sources) Nitrate Vasodilator Start: 05-28-2020 nitroglycerin sublingual (NITROQUICK) 0.4 mg SL tablet Dissolve 1 tablet under the tongue every 5 minutes as needed for Chest Pain. 1 Bottle of 25 1 05/28/2020 Active Comment on above: Dissolve 1 tablet un philip the tongue every 5 minutes as needed for Chest Pain. [place] 4-Cdt-Jfq-Fish Oil (Fish Oil) 60-90-500 mg capsule (1 source) Start: 12-10-2021 take 1 capsule by mouth once daily [place] 7-Cgs-Zvt-Fish Oil (Fish Oil) 60-90-500 mg capsule Active 1 CAP PO DAILY December 10, 2021 11:26am ondansetron 4 mg oral tablet (20 sources) Serotonin-3 Receptor Antagonist Start: 06-19-2024 take 1 tablet by mouth every eight hours Ondansetron Hcl 4 mg tablet Active 4 mg PO Q8H June 19, 2024 12:00am Start: 04-12-2023 take 1 tablet by suad th every eight hours as needed ondansetron orally disintegrating (ZOFRAN ODT) 4 mg disintegrating tablet Take 1 tablet by mouth every 8 hours as needed for nausea/vomiting. 10 tablet 04/12/2023 Active Comment on above: Take 1 tablet by suad th every 8 hours as needed for nausea/vomiting. pantoprazole 40 mg delayed release oral tablet (20 sources) Proton Pump Inhibitor Start: 01-25-20 take 1 tablet by mouth once daily Pantoprazole 40 mg tablet,delayed release (DR/EC) Active 40 mg PO daily January 24, 2025 12:00am Start: 06-21-2023 End: 12-12-2024 take 1 tablet by mouth twice daily pantoprazole DR (PROTONIX) 40 mg tablet Take 40 mg by mouth two times a day. 08/17/2023 Active Comment on above: Take 40 mg by mouth two times a day. potassium chloride 20 meq extended release oral tablet (20 sources) Start: 01-24-2025 take 1 tablet by mouth once daily Potassium Chloride 20 mEq tablet extended release Active 20 meq PO daily January 24, 2025 12:00am Start: 06-19-2024 End: 12-12-2024 take 1 tablet by mouth once daily Potassium Chloride 20 mEq tablet extended release Discontinued 20 meq PO DAILY June 19, 2024 12:00am December 12, 2024 12:16pm Start: 2023 End: 10-06-2023 take 1 tablet by mouth once daily Potassium Chloride 20 mEq tablet extended release Discontinued 20 meq PO DAILY 2023 12:00am October 06, 2023 5:01pm On Hold: Hold while taking Neutra-Phos take 1 tablet by suad th once daily potassium chloride ER (KLOR-CON) 20 mEq tablet Take 20 mEq by mouth once daily. Active Potassium, Sodium Phosphates (6 sources) Start: 06-26-2023 Potassium, Sod ium Phosphates Active 1 PACKET PO THREE TIMES A DAY 9 June 26, 2023 12:00am Start: 06-26-2023 Potassium, Sod ium Phosphates Active 1 PACKET PO THREE TIMES A DAY 9 June 25, 2023 11:00pm pravastatin sodium 20 mg oral tablet (8 sources) HMG-CoA Reductase Inhibitor Start: 10-30-2018 pravastatin (PRAVACHOL) 20 MG tablet 20 mg . 0 10/30/2018 Active Sennosides (Senna) 8.6 mg tablet (10 sources) Start: 06-21-2023 take 2 tablets by mouth at bedtime Sennosides (Senna) 8.6 mg tablet Active 17.2 mg PO AT BEDTIME June 21, 2023 12:00am Start: 06-21-2023 take 2 tablets by mo uth at bedtime Sennosides (Senna) 8.6 mg tablet Active 17.2 MG PO AT BEDTIME June 21, 2023 12:00am Start: 06-21-2023 take 2 tablets by mo uth at bedtime Sennosides (Senna) 8.6 mg tablet Active 17.2 MG PO AT BEDTIME June 20, 2023 11:00pm sennosides, shelter 8.6 mg oral capsule (20 sources) take 2 capsules by mouth once daily at bedtime Sennosides 8.6 mg cap Take 17.2 mg by mouth daily at bedtime. Active Comment on above: Take 17.2 mg by mout h daily at bedtime. sertraline 50 mg oral tablet (20 sources) Serotonin Reuptake Inhibitor Start: take 1 tablet by mouth once daily Sertraline 50 mg tablet Active 50 mg PO DAILY October 18, 2023 1:00am Comment on above: Take 50 mg by mouth once daily. sodium phosphate,mono-dibasi c (FLEET ENEMA RECTAL) (20 sources) sodium phosphate,mono-diba sic (FLEET ENEMA RECTAL) 1 Enema by RECTAL route as needed. Active sodium phosphate ,mono-dibasic (FLEET ENEMA RECTAL) 1 Enema by RECTAL route as needed. 0 Active tiZANidine 2 mg oral tablet (2 sources) Central alpha-2 Adrenergic Agonist Start: 04-01-2022 take 4 mg by mouth twice daily Tizanidine Active 4 MG PO TWICE A DAY 120 April 01, 2022 6:57pm topiramate 25 mg oral tablet (20 sources) Start: 10-07-2020 End: 09-22-2022 take 2 tablets by mouth twice daily Topiramate Active 25 MG PO TWICE A DAY September 09, 2022 12:00am 2 tabs bid Start: 10-30-2018 take 25 mg by mouth twice ben y Topiramate Active 25 MG PO TWICE A DAY October 30, 2018 4:06pm take 1 capsule by [facility] twice daily topiramate (TOPAMAX) 25 MG capsule Take 25 mg by mouth 2 (two) times a day . 0 Active Comment on above: Take 2 tablets by [facility] twice daily. traMADol hydrochloride 50 mg oral tablet (20 sources) Opioid Agonist Start: 01-24-2025 take 1 tablet by mouth every six hours as needed for pain Tramadol 50 mg tablet Active 50 mg PO EVERY 6 HOURS as needed for LOWER BACK PAIN January 24, 2025 8:42am Start: 10-13-2023 End: 01-24-2025 take 1 tablet by mouth every eight hours as needed for pain Tramadol 50 mg tablet Discontinued 50 mg PO Q8H as needed for LOWER BACK PAIN October 13, 2023 12:02pm January 24, 2025 8:45am Start: 06-21-2023 End: 06-26-2023 take 1 tablet by mouth every six hours as needed for pain Tramadol 50 mg tablet Discontinued 50 mg PO EVERY 6 HOURS as needed for RIGHT HIP PAIN June 21, 2023 12:00am June 26, 2023 9:18am Start: 04-23-2023 End: 10-13-2023 take 1 tablet by mouth every twelve hours as needed for pain Tramadol 50 mg tablet Discontinued 50 mg PO Q12H as needed for LOWER BACK PAIN 7 June 26, 2023 9:22am October 13, 2023 12:10pm Start: 04-01-2022 End: 06-23-2022 take 50 mg by mouth every six hours as needed Tramadol Active 50 MG PO EVERY 6 HOURS NEEDED 03 06April 01, 2022 12:00am Comment on above: Take 50 mg by mouth every 6 hours as needed for pain. Take 50 mg by mouth every 6 hours as needed for pain. Take one tablet by mouth every eight hours as needed for pain vitamin b12 1 mg oral tablet (20 sources) Vitamin B12 Start: 04-11-2023 End: 08-28-2024 take 1000 ug by mouth once daily Cyanocobalamin (Vitamin B-12) Active 1000 MCG PO DAILY April 11, 2023 12:00am Start: 02-19-2022 take 1 tablet by [facility] once daily Cyanocobalamin (Vitamin B-12) (Vitamin B-12) 250 mcg Tablet Active 250 MCG PO DAILY February 19, 2022 12:00am Start: 12-10-2021 take 2500 ug by mout h once daily Cyanocobalamin (Vitamin B-12) Active 2500 MCG PO DAILY December 10, 2021 11:26am Comment on above: Take 1,[address] [facility] once daily. (20 sources) Start: 06-26-2023 Start: 06-21-2023 End: 06-26-2023 Start: 06-21-2023 Start: 02-19-2022 Completed/Discontinued Medications Medication Drug Class(es) Dates Sig (Normalized) Sig (Original) acetaminophen 325 mg / HYDROcodone bitartrate 5 mg oral tablet (20 sources) Opioid Agonist Start: 01-05-2019 End: 01-08-2019 Hydrocodone-Acetami nophen 1 TABLET tablet Discontinued 1 {tbl} PO EVERY 6 HOURS NEEDED as needed for Pain 10 January 05, 2019 1:00am January 07, 2019 1:00am January 08, 2019 1:10am Start: 01-05-2019 End: 01-08-2019 take 1 tablet by mouth every six hours as needed Hydrocodone-Acetaminophen Discontinued 1 TABLET PO EVERY 6 HOURS NEEDED 08 09January 05, 2019 1:00am January 08, 2019 1:10am Start: 01-05-2019 End: 01-08-2019 Aluminum-Magnesium Hydroxide (6 sources) Start: 06-21-2023 End: 06-26-2023 take 1 mL by mouth every four hours as needed Aluminum-Magnesium Hydroxide Discontinued 30 ML PO EVERY 4 HOURS NEEDED June 21, 2023 12:00am June 26, 2023 9:26am Start: 06-21-2023 End: 06-26-2023 take 1 mL by mouth every four hours as needed Aluminum-Magnesium Hydroxide Discontinued 30 ML PO EVERY 4 HOURS NEEDED June 20, 2023 11:00pm June 26, 2023 8:26am aspirin 81 mg delayed release oral tablet (20 sources) Platelet Aggregation Inhibitor, Nonsteroidal Anti-inflammatory Drug Start: 05-28-2020 End: 02-03-2022 take 1 tablet by mouth once daily aspirin, enteric coated (ECOTRIN LOW STRENGTH) 81 mg EC tablet Take 1 tablet by mouth once daily. 0 05/28/2020 02/03/2022 Discontinued (Discontinued by another Health Care Provider) Start: 05-26-2020 End: 06-25-2020 take 1 tablet by mouth once daily Aspirin 81 MG tablet,chewable Discontinued 81 mg PO DAILY@0800 30 May 26, 2020 12:00am June 24, 2020 12:00am June 25, 2020 12:02am Start: 01-31-2019 End: 04-18-2019 take 1 tablet by mouth once daily Aspirin 81 MG tablet Discontinued 81 mg PO DAILY@0800 January 31, 2019 12:00am April 18, 2019 2:51pm Comment on above: Take 1 tablet by suad once daily. Benzocaine (1 source) Standardized Chemical Allergen Start: 4 End: 4 TOPICAL, X (OR/PROCEDURE) PRN, Starting on Tue08/22/24 at 1047, Until Tue08/22/24 at 1047, Intraprocedure bumetanide 2 mg oral tablet (20 sources) Loop Diuretic Start: 3 End: 4 take 1 tablet by mouth once daily as needed Bumetanide 2 mg tablet Discontinued 1 mg PO DAILY as needed for leg swelling June 26, 2023 9:22am June 19, 2024 2:23pm Start: 06-21-2023 End: 06-26-2023 take 1 mg by mouth once daily Bumetanide Active 1 MG P O DAILY June 26, 2023 9:22am Start: 06-21-2023 End: 06-21-2023 take 2.5 mg by mouth once daily Bumetanide Discontinue d 2.5 MG PO DAILY June 21, 2023 12:00am June 21, 2023 4:27pm Start: 06-21-2023 End: 06-26-2023 take 2.5 mg by mouth once daily Bumetanide Discontinue d 2.5 MG PO DAILY June 21, 2023 12:00am June 26, 2023 9:22am Start: 04-25-2022 End: 2023 take 1 tablet by mouth three times daily Bumetanide 1 mg tablet Discontinued 1 {tbl} PO THREE TIMES A DAY April 25, 2022 12:00am 2023 2:33pm On Hold: Resume on 04/27/23. Start: 04-17-2019 End: 07-10-2020 take 1-2 mg by mouth twice daily Bumetanide 1 mg tablet Discontinued 1 - 2 mg PO TWICE A DAY April 17, 2019 12:14pm July 10, 2020 1:34pm Start: 10-30-2018 End: 06-21-2023 take 1 tablet by mouth once daily bumetanide (BUMEX) 1 mg tablet Take 1 tablet by mouth once daily. 30 tablet 11 03/23/2023 Active Start: 10-30-2018 End: 04-17-2019 Bumetanide 1 tablet Disconti nued 1 - 2 mg PO NEEDED as needed for Swelling October 30, 2018 1:00am April 17, 2019 12:14pm Start: 10-30-2018 End: 04-01-2022 take 3 mg by mouth once daily Bumetanide Discontinued 3 MG PO DAILY July 10, 2020 1:32pm February 03, 2022 4:23pm Start: 10-30-2018 End: 02-03-2022 take 3 tablets by mouth once daily bumetanide (BUMEX) 1 mg tablet Take 3 tablets by mouth once daily. 90 tablet 11 10/08/2020 09/25/2021 Discontinued Comment on above: Take 1 tablet by suad th once daily. Take [address] [facility] once daily. 168 hr buprenorphine 0.005 mg/hr transdermal system (20 sources) Partial Opioid Agonist Start: 03-17-20 End: 04-01-20 apply 5 ug transdermal route every week Buprenorphine 5 mcg/hour Patch Weekly Discontinued 1 NMA TD Q7D March 17, 2022 12:00am April 01, 2022 6:56pm Calcium Carbonate (20 sources) End: 08-28-20 take 1 tablet by mouth once daily calcium carbonate (CALCIUM 300 ORAL) Take 1 tablet by mouth once daily. 08/28/2024 Discontinued take 1 tablet by mouth once ben y calcium carbonate (CALCIUM 300 ORAL) Take 1 tablet by mouth once daily. Active take 1 tablet by mouth once ben y calcium carbonate (CALCIUM 300 ORAL) Take 1 tablet by mouth once daily. 0 Active calcium carbonat e (CALCIUM 300 ORAL) Take by mouth. 0 Active Comment on above: Take by mouth. Take 1 tablet by suad once daily. cephalexin 500 mg oral capsule (20 sources) Cephalosporin Antibacterial Start: 08-02-20 End: 12-10-19 take 1 capsule by mouth every six hours Cephalexin 500 MG capsule Discontinued 500 mg PO EVERY 6 HOURS August 02, 2021 12:00am December 10, 2021 11:29am 1 ml denosumab 60 mg/ml prefilled syringe (20 sources) RANK Ligand Inhibitor Start: 03-06-20 End: 03-06-20 inject 1 dose by subcutaneous injection once 60 mg, SUBCUTANEOUS, ONCE, 1 dose, On Tue03/06/25 at 1130, Allow To Come To Room Temperature Before Administration. REFRIGERATE Start: 2024 End: 2024 denosumab 60 mg injection (P ROLIA) Start: 05-22-2024 denosumab (PRO DADA) 60 mg/mL Indications: Age-related osteoporosis without current pathological fracture Injection to be administered once every 6 months 1 mL 1 05/22/2024 Active Start: 05-22-2024 End: 05-22-2024 inject 1 mL by subcutaneous injection once denosumab (PROLIA) 60 mg/mL Indications: Age-related osteoporosis without current pathological fracture Inject 1 mL subcutaneously one time only for 1 dose. 1 mL 0 05/22/2024 05/22/2024 Discontinued dextromethorphan hydrobromide 20 mg / quiNIDine sulfate 10 mg oral capsule (20 sources) Antiarrhythmic, Uncompetitive L-sylmzg-D-aspartate Receptor Antagonist, Cytochrome P450 2D6 Inhibitor, Sigma-1 Agonist Start: 10-17-2023 End: 03-28-2024 take 1 capsule by mouth once daily, then take 1 capsule by mouth twice daily Dextromethorphan-Quinidine (Nuedexta) 20-10 mg capsule Discontinued 0 .ROUTE .COMPLEX October 17, 2023 5:30pm March 28, 2024 11:35am Take 1 capsule orally daily for 1 week then 1 capsule twice daily thereafter Start: 10-17-2023 End: 10-17-2023 take 1 capsule by mouth twice daily Dextromethorphan-Quinidine (Nuedexta) 20 -10 mg capsule Discontinued 1 NMA PO TWICE A DAY October 17, 2023 1:00am October 17, 2023 5:31pm docusate sodium 50 mg / sennosides, shelter 8.6 mg oral tablet (20 sources) Start: 05-25-2020 End: 05-08-2021 Sennosides-Docusate Sodium 1 TABLET tablet Discontinued 2 {tbl} PO TWICE DAILY NEEDED as needed for Constipation May 25, 2020 12:00am May 08, 2021 8:51am Start: 05-25-2020 End: 05-08-2021 take 2 tablets by mouth twice daily as needed Sennosides-Docusate Sodium Discontinued 2 TABLET PO TWICE DAILY NEEDED May 25, 2020 12:00am May 08, 2021 8:51am Start: 05-25-2020 End: 05-08-2021 0.5 ml dulaglutide 3 mg/ml auto-injector (20 sources) GLP-1 Receptor Agonist Start: 06-21-2023 End: 06-19-2024 Dulaglutide (Trulicity) 1.5 mg/0.5 mL pen injector Discontinued 1.5 mg SC FR June 21, 2023 12:00am June 19, 2024 2:21pm Comment on above: Inject 1.5 mg subcut aneously one time a week. dulaglutide (TRULICITY) 3 mg/0.5 mL pen injector (20 sources) Start: 08-19-2023 End: 03-06-2025 inject 3 mg by subcutaneous injection every week dulaglutide (TRULICITY) 3 mg/0.5 mL pen injector Inject 3 mg subcutaneously one time a week. Tuesday08/19/2023 03/06/2025 Discontinued Start: 08-19-2023 inject 3 mg by subcu taneous injection every week dulaglutide (TRULICITY) 3 mg/0.5 mL pen injector Inject 3 mg subcutaneously one time a week. Tuesday08/19/2023 Active Start: 08-19-2023 inject 3 mg by subcu taneous injection every week dulaglutide (TRULICITY) 3 mg/0.5 mL pen injector Inject 3 mg subcutaneously one time a week. Tuesday08/19/2023 Active End: 05-01-2024 inject 3 mg by subcutaneous injection every week dulaglutide (TRULICITY) 3 mg/0.5 mL pen injector Inject 3 mg subcutaneously one time a week. 0 05/01/2024 Discontinued (Duplicate Entry) inject 3 mg by subcu taneous injection every week dulaglutide (TRULICITY) 3 mg/0.5 mL pen injector Inject 3 mg subcutaneously one time a week. 0 Active 1 ml fentaNYL 0.05 mg/ml injection (1 source) Opioid Agonist Start: 08-22-2024 End: 08-22-2024 INTRAVENOUS, X (OR/PROCEDURE) PRN, Starting on Tue08/22/24 at 1047, Until Tue08/22/24 at 1052, Intraprocedure flash glucose scanning reader (FREESTYLE HERMINIO 2 READER) (3 sources) Start: 04-03-2021 End: 02-03-2022 flash glucose scanning reader (FREESTYLE HERMINIO 2 READER) Check sugars as directed at least 4 times daily. E11.65, Z79.4 1 Each 0 04/03/2021 02/03/2022 Discontinued (Cost of medication) Start: 04-03-2021 flash glucose scanning reader (FREESTYLE HERMINIO 2 READER) Check sugars as directed at least 4 times daily. E11.65, Z79.4 1 Each 0 04/03/2021 Active Comment on above: Check sugars as dire cted at least 4 times daily. E11.65, Z79.4 flash glucose sensor (FREESTYLE HERMINIO 2 SENSOR) kit (3 sources) Start: 04-03-2021 End: 02-03-2022 flash glucose sensor (FREESTYLE HERMINIO 2 SENSOR) kit Indications: Uncontrolled type 2 diabetes mellitus with insulin therapy Change every 14 days. E11.65, Z79.4 2 Each 11 04/03/2021 02/03/2022 Discontinued (Cost of medication) Start: 04-03-2021 flash glucose sensor (FREESTYLE HERMINIO 2 SENSOR) kit Indications: Uncontrolled type 2 diabetes mellitus with insulin therapy Change every 14 days. E11.65, Z79.4 2 Each 04/03/2021 Active Comment on above: Change every 14 days . E11.65, Z79.4 insulin aspart, human 100 unt/ml injectable solution (20 sources) Insulin Analog Start: 04-13-2024 End: 03-06-2025 insulin aspart U-100 (NOVOLOG) 100 unit/mL Inject subcutaneously three times a day before meals. Uses sliding scale 04/13/2024 03/06/2025 Discontinued 3 ml insulin lispro 100 unt/ml pen injector (20 sources) Insulin Analog Start: 06-26-2023 End: 06-19-2024 Insulin Lispro (Humalog Kwikpen Insulin) 100 unit/mL Insulin Pen Discontinued 0 U SC BEFORE MEALS AND AT BEDTIME 0 June 26, 2023 12:00am June 19, 2024 2:21pm Please contact the information source for Protocol details. Start: 06-26-2023 Insulin Lispro (Humalog Kwikpen Insulin) 100 unit/mL Insulin Pen Active 0 UNIT SC BEFORE MEALS AND AT BEDTIME 0 June 26, 2023 12:00am End: 03-06-2025 INSULIN LISPRO SUBCUTANEOUS Inject subcutaneously. Per sliding scale 03/06/2025 Discontinued INSULIN LISPRO S UBCUTANEOUS Inject subcutaneously. Per sliding scale Active INSULIN LISPRO S UBCUTANEOUS Inject subcutaneously. Per sliding scale 0 Active Comment on above: Inject subcutaneously. Per sliding scale iron ps complex/B12/foli c acid (FERREX 150 FORTE ORAL) (20 sources) End: take 1 tablet by mouth once daily iron ps complex/B12/folic acid (FERREX 150 FORTE ORAL) Take 1 tablet by mouth once daily. 08/28/2024 Discontinued take 1 tablet by mouth once ben y iron ps complex/B12/folic acid (FERREX 150 FORTE ORAL) Take 1 tablet by mouth once daily. Active take 1 tablet by mouth once ben y iron ps complex/B12/folic acid (FERREX 150 FORTE ORAL) Take 1 tablet by mouth once daily. 0 Active iron ps complex/ B12/folic acid (FERREX 150 FORTE ORAL) Take by mouth. 0 Active Comment on above: Take by mouth. 24 hr isosorbide mononitrate 60 mg extended release oral tablet (20 sources) Nitrate Vasodilator Start: 05-26-20 End: 06-25-20 take 1 tablet by mouth once daily Isosorbide Mononitrate 60 MG tablet Discontinued 60 mg PO DAILY May 26, 2020 12:00am June 24, 2020 12:00am June 25, 2020 12:02am lactobacillus rhamnosus gg [id number] unt oral capsule (20 sources) Start: 06-21-20 End: 06-21-20 take 10 capsules by mouth twice daily Lactobacillus Rhamnosus Gg (Culturelle) 10 billion cell capsule Discontinued 1 NMA PO TWICE A DAY June 21, 2023 12:00am June 21, 2023 4:36pm Start: 06-21-2023 End: 06-21-2023 0.375 ml leuprolide acetate 60 mg/ml prefilled syringe (5 sources) Gonadotropin Releasing Hormone Receptor Agonist Start: 03-06-2025 End: 03-06-2025 inject 1 dose by subcutaneous injection once 22.5 mg, SUBCUTANEOUS, ONCE, 1 dose, On Tue03/06/25 at 1030, Hazardous Chemotherapy Drug: Use appropriate PPE. Start: 12-12-2024 End: 12-12-2024 inject 1 dose by subcutaneous injection once 22.5 mg, SUBCUTANEOUS, ONCE, 1 dose, On Tue12/12/24 at 1500, Hazardous Chemotherapy Drug: Use appropriate PPE. Start: 09-19-2024 End: 09-19-2024 inject 1 dose by subcutaneous injection once 22.5 mg, SUBCUTANEOUS, ONCE, 1 dose, On Tue09/19/24 at 1530, Hazardous Chemotherapy Drug: Use appropriate PPE. Start: 06-20-2024 End: 06-20-2024 leuprolide 22.5 mg injection (LUPRON DEPOT) Start: 03-21-2024 End: 03-21-2024 leuprolide 22.5 mg injection (LUPRON DEPOT) lidocaine 0.05 mg/mg medicated patch (20 sources) Antiarrhythmic, Amide Local Anesthetic Start: 06-21-2023 End: 03-28-2024 Lidocaine 5 % adhesive patch,medicated Discontinued 1 NMA TOPICAL DAILY June 21, 2023 12:00am March 28, 2024 11:35am APPLY TO RIGHT HIP TOPICALLY IN THE MORNING FOR PAIN Start: 04-01-2022 End: 09-09-2022 Lidocaine 5 % Adhesive Patch ,Medicated Discontinued 2 NMA TOPICAL DAILY 60 April 01, 2022 12:00am September 09, 2022 11:21am Please contact the information source for Protocol details. loratadine 10 mg oral tablet (20 sources) Start: 12-10-2021 take 10 mg by mouth once daily Loratadine Active 10 MG PO DAILY December 10, 2021 1:00am Start: 03-29-2021 End: 03-06-2025 take 1 tablet by mouth once daily as needed loratadine (CLARITIN) 10 mg tablet Indications: Rash Take 1 tablet by mouth once daily as needed. 90 tablet 3 12/22/2022 03/06/2025 Discontinued Comment on above: Take 1 tablet by suad th once daily as needed. Take 1 tablet by suad th once daily. 24 hr metFORMIN hydrochloride 500 mg extended release oral tablet (20 sources) Biguanide Start: 04-17-2019 End: 05-25-2020 Metformin 500 mg tablet extended release 24 hr Discontinued 2000 mg PO DAILY 360 90 April 17, 2019 12:00am May 25, 2020 10:12am Start: 04-17-2019 End: 05-25-2020 take 2000 mg by mouth once daily Metformin Discontinued 2000 MG PO DAILY 360 90 April 17, 2019 12:00am May 25, 2020 10:12am 24 hr metoprolol succinate 25 mg extended release oral tablet (20 sources) beta-Adrenergic Zeeshan Start: 12-12-2020 End: 06-29-2021 take 1 tablet by mouth once daily Metoprolol Succinate 25 mg tablet extended release 24 hr Discontinued 25 mg PO DAILY December 12, 2020 1:00am April 14, 2021 4:34pm Start: 03-05-2020 End: 12-12-2020 take 1 tablet by mouth once daily Metoprolol Succinate 50 mg tablet extended release 24 hr Discontinued 50 mg PO DAILY April 07, 2020 1:21pm December 12, 2020 2:55pm Start: 11-01-2019 End: 03-05-2020 take 2 tablets by mouth once daily Metoprolol Succinate 25 mg tablet extended release 24 hr Discontinued 12.5 mg PO DAILY November 01, 2019 1:00am March 05, 2020 10:02am Start: 11-01-2019 End: 03-05-2020 take 12.5 mg by mouth once daily Metoprolol Succinate Discontinued 12.5 MG PO DAILY November 01, 2019 1:00am March 05, 2020 10:02am Start: 11-01-2019 End: 03-05-2020 Start: 10-30-2018 End: 04-17-2019 take 1 tablet by mouth twice daily Metoprolol Tartrate 50 MG tablet Discontinued 50 mg PO TWICE A DAY October 30, 2018 1:00am April 17, 2019 12:12pm Comment on above: [facility] midazolam 1 mg/ml injection (1 source) Benzodiazepine Start: 08-22-20 End: 08-22-20 INTRAVENOUS, X (OR/PROCEDURE) PRN, Starting on Tue08/22/24 at 1047, Until Tue08/22/24 at 1052, Intraprocedure nadolol 20 mg oral tablet (20 sources) beta-Adrenergic Zeeshan Start: 04-14-20 End: 09-09-20 take 1 tablet by mouth once daily Nadolol 20 mg tablet Discontinued 10 mg PO DAILY May 19, 2022 11:16am September 09, 2022 11:49am Start: 04-14-2021 End: 09-09-2022 take 10 mg by mouth once daily Nadolol Discontinued 10 MG PO DAILY May 19, 2022 11:16am September 09, 2022 11:49am Start: 04-14-2021 End: 09-09-2022 take 5 mg by mouth once daily Nadolol Discontinued 5 M G PO DAILY April 25, 2022 8:39pm May 19, 2022 11:15am omeprazole 20 mg delayed rel ease oral capsule (20 sources) Proton Pump Inhibitor Start: 09-09-2022 End: 06-21-2023 Start: 10-30-2018 End: 08-28-2024 take 1 capsule by mouth twice daily Omeprazole 20 mg capsule,delayed release(DR/EC) Discontinued 20 mg PO TWICE A DAY September 09, 2022 12:00am June 21, 2023 4:32pm take 1 capsule by [facility] once daily omeprazole (PRILOSEC) 20 MG capsule Take 20 mg by mouth daily . 0 Active Comment on above: Take 1 capsule by [facility] twice daily. polysaccharide iron complex 150 mg oral capsule (20 sources) Start: 04-01-20 End: 04-25-20 Polysaccharide Iron Complex (Ferrex 150) 150 mg iron Capsule Discontinued 150 mg PO DAILY April 01, 2022 12:00am April 25, 2022 8:39pm Potassium, Sodium Phosphates 280-160-250 mg Powder In Packet (4 sources) Start: 06-26-20 End: 06-19-20 Potassium, Sodium Phosphates 280-160-250 mg Powder In Packet Discontinued 1 NMA PO THREE TIMES A DAY 9 3 June 26, 2023 12:00am June 19, 2024 2:22pm Remove Patch (10 sources) Start: 06-26-20 End: 03-28-20 apply 1 dose topically once daily Remove Patch Discontinued 1 NMA TOPICAL DAILY@2200 0 June 26, 2023 12:00am March 28, 2024 11:36am Start: 06-26-2023 apply 1 dose topically once da wing Remove Patch Active 1 PATCH TOPICAL DAILY@2200 0 June 26, 2023 12:00am Start: 06-26-2023 apply 1 dose topically once da wing Remove Patch Active 1 PATCH TOPICAL DAILY@2199 0 June 25, 2023 11:00pm rifAXIMin 550 mg oral tablet (20 sources) Rifamycin Antibacterial Start: 06-26-2023 End: 08-28-2024 take 1 tablet by mouth twice daily Rifaximin (Xifaxan) 550 mg Tablet Discontinued 550 mg PO TWICE A DAY June 26, 2023 12:00am March 28, 2024 11:36am Comment on above: TWICE A DAY 1000 ml sodium chloride 9 mg/ml injection (1 source) Start: 08-22-2024 End: 08-22-2024 INTRAVENOUS, X (OR/PROCEDURE) CONTINUOUS, Starting on Tue08/22/24 at 1050, Until Tue08/22/24 at 1050, Intraprocedure sodium,potassium phosphates (POTASSIUM & SODIUM PHOSPHATES ORAL) (20 sources) End: 08-28-2024 take 1 dose by mouth three times daily sodium,potassium phosphates (POTASSIUM & SODIUM PHOSPHATES ORAL) Take by mouth. 280-160-250 MG one packet by mouth three times daily 08/28/2024 Discontinued take 1 dose by mouth three times daily sodium,potassium phosphates (POTASSIUM & SODIUM PHOSPHATES ORAL) Take by mouth. 280-160-250 MG one packet by mouth three times daily Active take 1 dose by mouth three times daily sodium,potassium phosphates (POTASSIUM & SODIUM PHOSPHATES ORAL) Take by mouth. 280-160-250 MG one packet by mouth three times daily 0 Active Comment on above: Take by mouth. 280-1 60-250 MG one packet by mouth three times daily sotalol hydrochloride 80 mg oral tablet (20 sources) Antiarrhythmic Start: 12-12-19 End: 12-10-19 take 1 tablet by mouth twice daily Sotalol 80 mg tablet Discontinued 80 mg PO TWICE A DAY 180 September 08, 2021 2:43pm December 10, 2021 11:28am Start: 05-13-2020 End: 02-03-2022 take 1 tablet by mouth twice daily Sotalol 120 mg tablet Discontinued 120 mg PO TWICE A DAY 180 May 13, 2020 3:56pm December 12, 2020 2:56pm Start: 11-01-2019 End: 05-13-2020 take 1 tablet by mouth twice daily Sotalol 80 mg tablet Discontinued 80 mg PO TWICE A DAY 180 May 12, 2020 12:50pm May 13, 2020 3:57pm Comment on above: Take 1 tablet by suad twice daily. (cardiology) spironolactone 25 mg oral tablet (20 sources) Aldosterone Antagonist Start: 10-30-20 18 End: 05-25-20 take 1 tablet by mouth twice daily Spironolactone 25 tablet Discontinued 25 mg PO TWICE A DAY October 30, 2018 1:00am May 25, 2020 10:12am Start: 10-30-2018 End: 08-28-2024 take 1 tablet by mouth once daily Spironolactone 25 mg Tablet Discontinued 25 mg PO DAILY February 19, 2022 12:00am April 01, 2022 6:56pm Comment on above: Take 1 tablet by suad once daily. Take 25 mg by mouth once daily. tamsulosin hydrochloride 0.4 mg oral capsule (20 sources) alpha-Adrenergic Zeeshan Start: 1 End: 4 take 1 capsule by mouth at bedtime Tamsulosin 0.4 mg capsule Discontinued 0.4 mg PO AT BEDTIME May 08, 2021 12:00am January 06, 2023 2:44pm Comment on above: TAKE 1 CAPSULE BY MO [facility] AT BEDTIME Take [address] [facility] daily at bedtime. traZODone hydrochloride 50 mg oral tablet (20 sources) Serotonin Reuptake Inhibitor Start: 2 End: 2 take 1 tablet by mouth at bedtime Trazodone 50 mg tablet Discontinued 50 mg PO AT BEDTIME August 09, 2022 12:00am September 09, 2022 11:22am Start: 08-09-2022 End: 09-09-2022 warfarin sodium 3 mg oral tablet (20 sources) Vitamin K Antagonist Start: 10-30-2018 End: 11-01-2019 Warfarin 3 MG tablet Discontinued 3 mg PO MOWEOctober 30, 2018 1:00am November 01, 2019 12:38pm Start: 10-30-2018 End: 11-01-2019 take 2 tablets by mouth once Warfarin 3 MG tablet Disc ontinued 6 mg PO every Tuesday, TueOctober 30, 2018 1:00am November 01, 2019 12:38pm Start: 10-30-2018 End: 11-01-2019 take 6 mg by mouth once Warfarin Discontinued 6 MG P O every TueOctober 30, 2018 1:00am November 01, 2019 12:38pm Start: 10-30-2018 End: 11-01-2019 Problems Active Problems Problem Classification Problem Date Documented Da te Episodic/Chronic Abdominal hernia (20 sources) Right inguinal hernia ; Translations: [Unilateral inguinal hernia, without obstruction or gangrene, not specified as recurrent] Onset: 5 01-25-2022 Episodic Acute and unspecified renal failure (20 sources) Injury of kidney; Translations: [Acute kidney failure, unspecified] 08-10-2021 Episodic Acute cerebrovascular disease (20 sources) Embolic stroke; 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] Onset: 4 11-02-2021 Chronic Acute myocardial infarction (20 sources) Myocardial infarction; Translations: [ST elevation (STEMI) myocardial infarction of unspecified site] Onset: 9 10-25-2019 Chronic Administrative/social admission (1 source) Occupational exposure to other risk factors; Translations: [Personal history of contact with and (suspected) exposure to potentially hazardous body fluids] 12-22-2023 Episodic Alcohol-related disorders (3 sources) Alcoholic liver damage; Translations: [Alcoholic liver disease, unspecified] Onset: 5 08-28-2024 Chronic Asthma (20 sources) Mild intermittent asthma; Translations: [Mild intermittent asthma, uncomplicated] Onset: 9 03-08-2019 Chronic Cancer of prostate (20 sources) Malignant tumor of prostate; Translations: [Malignant neoplasm of prostate] Onset: 2 01-08-2022 Chronic Cardiac dysrhythmias (20 sources) Atrial fibrillation; Translations: [Unspecified atrial fibrillation] Onset: 4 11-02-2021 Chronic Cardiac dysrhythmias (20 sources) ECG: bradycardia; Translations: [Bradycardia, unspecified] 02-01-2019 Episodic Chronic kidney disease (20 sources) Chronic kidney disease; Translations: [Chronic kidney disease, unspecified] Onset: 3 Chronic Chronic kidney disease (1 source) Chronic kidney disease; Translations: [Chronic kidney disease, stage 3b] Onset: 4 Coagulation and hemorrhagic disorders (20 sources) Platelet count below reference range; Translations: [Thrombocytopenia, unspecified] Onset: 3 04-12-2023 Chronic Complications of surgical procedures or medical care (1 source) Drug-induced hypotension; Translations: [Hypotension due to drugs] Episodic Conduction disorders (20 sources) H/O: cardiac pacemaker in situ; Translations: [Presence of cardiac pacemaker] Onset: 9 10-25-2019 Chronic Congestive heart failure; nonhypertensive (20 sources) Chronic diastolic heart failure; Translations: [Chronic diastolic (congestive) heart failure] Onset: 8 Resolved: 2 08-25-2018 Chronic Coronary atherosclerosis and other heart disease (20 sources) Coronary atherosclerosis; Translations: [Atherosclerotic heart disease of [place] coronary artery without angina pectoris] Onset: 9 09-28-2022 Chronic Diabetes mellitus with complications (20 sources) Hyperglycemia due to diabetes mellitus; Translations: [Type 2 diabetes mellitus with hyperglycemia] Onset: 4 Resolved: 7 08-10-2021 Chronic Diabetes mellitus without complication (20 sources) Type 2 diabetes mellitus without complication; Translations: [Type 2 diabetes mellitus without complications] Onset: 7 Chronic Diabetes mellitus without complication (20 sources) Hyperglycemia; Translations: [Hyperglycemia, unspecified] 10-04-2021 Episodic Diseases of white blood cells (20 sources) Leukocytosis; Translations: [Elevated white blood cell count, unspecified] 06-22-2023 Chronic Disorders of lipid metabolism (20 sources) Pure hypercholesterolemia; Translations: [Pure hypercholesterolemia, unspecified] Onset: 4 11-02-2021 Chronic Epilepsy; convulsions (20 sources) Seizure disorder; Translations: [Epilepsy, unspecified, not intractable, without status epilepticus] 07-16-2014 Chronic Esophageal disorders (20 sources) Gastroesophageal reflux disease; Translations: [Gastro-esophageal reflux disease without esophagitis] Onset: 4 11-02-2021 Chronic Essential hypertension (20 sources) Benign essential hypertension; Translations: [Essential (primary) hypertension] Onset: 4 11-02-2021 Chronic Fluid and electrolyte disorders (20 sources) Mild dehydration; Translations: [Dehydration] 08-10-2021 Episodic Fracture of neck of femur (hip) (20 sources) Closed fracture of neck of femur; Translations: [Fracture of unspecified part of neck of right femur, initial encounter for closed fracture] Onset: 2 Episodic Heart valve disorders (20 sources) Tricuspid incompetence, non-rheumatic ; Translations: [Nonrheumatic tricuspid (valve) insufficiency] 03-04-2020 Chronic Hepatitis (20 sources) Nonalcoholic steatohepatitis; Translations: [Nonalcoholic steatohepatitis (FARIAS)] Chronic Hyperplasia of prostate (20 sources) Weak urinary stream due to benign prostatic hypertrophy; Translations: [Benign prostatic hyperplasia with lower urinary tract symptoms] Onset: 1 01-30-2021 Chronic Hypertension with complications and secondary hypertension (20 sources) Hypertensive heart disease with congestive heart failure; Translations: [Hypertensive heart disease with heart failure] Onset: 2 09-28-2022 Chronic Late effects of cerebrovascular disease (20 sources) Late effects of cerebrovascular disease; Translations: [Unspecified sequelae of unspecified cerebrovascular disease] Onset: 4 11-02-2021 Chronic Nausea and vomiting (20 sources) Nausea; Translations: [Nausea] Episodic Neoplasms of unspecified nature or uncertain behavior (20 sources) Neoplasm of brain; Translations: [Neoplasm of unspecified behavior of brain] Onset: 4 11-02-2021 Chronic Nonspecific chest pain (20 sources) Chest pain; Translations: [Chest pain, unspecified] Episodic Osteoporosis (4 sources) Senile osteoporosis; Translations: [Age-related osteoporosis without current pathological fracture] 01-06-2024 Chronic Other and ill-defined heart disease (20 sources) Right ventricular systolic dysfunction; Translations: [Other ill-defined heart diseases] 01-25-2022 Chronic Other and ill-defined heart disease (13 sources) Other ill-defined heart diseases; Translations: [Heart disease, unspecified] Chronic Other circulatory disease (16 sources) Personal history of transient ischemic attack (TIA), and cerebral infarction without residual deficits; Translations: [Personal history of transient ischemic attack (TIA), and cerebral infarction without residual deficits] Episodic Other circulatory disease (20 sources) Foot pulse absent; Translations: [Other specified symptoms and signs involving the circulatory and respiratory systems] 08-09-2022 Episodic Other circulatory disease (8 sources) Other specified symptoms and signs involving the circulatory and respiratory systems; Translations: [Other symptoms involving cardiovascular system] Episodic Other circulatory disease (20 sources) Transient hypotension; Translations: [Hypotension, unspecified] 04-13-2023 Episodic Other circulatory disease (12 sources) Hypotension, unspecified; Translations: [Nonspecific low blood pressure reading] 04-13-2023 Episodic Other connective tissue disease (6 sources) History of repair of hip joint; Translations: [Presence of unspecified artificial hip joint] Chronic Other connective tissue disease (20 sources) Muscle weakness of limb; Translations: [Other symptoms and signs involving the musculoskeletal system] 05-24-2022 Episodic Other connective tissue disease (9 sources) Monoparesis - leg; Translations: [Other symptoms and signs involving the musculoskeletal system] 07-04-2023 Episodic Other connective tissue disease (8 sources) Increased muscle tone; Translations: [Other specified disorders of muscle] 08-18-2024 Episodic Other diseases of veins and lymphatics (20 sources) Bilateral lower limb edema; Translations: [Chronic venous hypertension (idiopathic) without complications of bilateral lower extremity] Onset: 8 04-23-2018 Chronic Other gastrointestinal disorders (20 sources) Ascites; Translations: [Other ascites] 06-19-2020 Episodic Other hematologic conditions (20 sources) High troponin I level; Translations: [Other specified abnormalities of plasma proteins] 01-05-2022 Episodic Other hematologic conditions (19 sources) Raised cardiac enzyme or marker; Translations: [Other specified abnormalities of plasma proteins] 04-23-2023 Episodic Other hematologic conditions (18 sources) Other specified abnormalities of plasma proteins; Translations: [Other abnormal blood chemistry] 04-23-2023 Episodic Other hereditary and degenerative nervous system conditions (20 sources) Tremor; Translations: [Essential tremor] Onset: 4 11-02-2021 Chronic Other liver diseases (20 sources) Cirrhosis of liver; Translations: [Unspecified cirrhosis of liver] Onset: 9 03-08-2019 Chronic Other liver diseases (20 sources) Unspecified cirrhosis of liver; Translations: [Cirrhosis of liver without mention of alcohol] Onset: 9 Chronic Other liver diseases (14 sources) Disease of liver; Translations: [Liver disease, unspecified] Chronic Other liver diseases (1 source) Liver disease, unspecified; Translations: [Liver disease] Onset: Chronic Other lower respiratory disease (20 sources) Dyspnea; Translations: [Dyspnea, unspecified] 01-05-2022 Episodic Other lower respiratory disease (20 sources) Orthopnea; Translations: [Orthopnea] 05-08-2021 Episodic Other male genital disorders (20 sources) Secondary erectile dysfunction; Translations: [Male erectile dysfunction, unspecified] Onset: 4 11-02-2021 Chronic Other nervous system disorders (20 sources) Polyneuropathy; Translations: [Polyneuropathy, unspecified] 05-24-2022 Chronic Other nervous system disorders (13 sources) Polyneuropathy, unspecified; Translations: [Unspecified hereditary and idiopathic peripheral neuropathy] Chronic Other nervous system disorders (2 sources) Metabolic encephalopathy; Translations: [Metabolic encephalopathy] Onset: Chronic Other nervous system disorders (20 sources) Abnormal gait; Translations: [Unspecified abnormalities of gait and mobility] 08-09-2022 Episodic Other nervous system disorders (13 sources) Unspecified abnormalities of gait and mobility; Translations: [Abnormality of gait] Episodic Other nervous system disorders (20 sources) Toxic metabolic encephalopathy; Translations: [Toxic metabolic encephalopathy] 06-22-2023 Episodic Other non-traumatic joint disorders (2 sources) Greater trochanteric pain syndrome of right lower limb; Translations: [Pain in right hip] Episodic Other non-traumatic joint disorders (20 sources) Hip pain; Translations: [Pain in right hip] 06-23-2023 Episodic Other non-traumatic joint disorders (11 sources) Pain in right hip; Translations: [Pain in joint, pelvic region and thigh] 06-26-2023 Episodic Other non-traumatic joint disorders (2 sources) Pain in right hip joint; Translations: [Pain in right hip] 03-21-2024 Episodic Other nutritional; endocrine; and metabolic disorders (20 sources) Hypoalbuminemia; Translations: [Other disorders of plasma-protein metabolism, not elsewhere classified] Onset: 9 03-08-2019 Chronic Other nutritional; endocrine; and metabolic disorders (20 sources) Hyperbilirubinemia; Translations: [Other disorders of bilirubin metabolism] 06-22-2023 Chronic Other nutritional; endocrine; and metabolic disorders (11 sources) Other disorders of bilirubin metabolism; Translations: [Jaundice, unspecified, not of ] 06-26-2023 Chronic Other nutritional; endocrine; and metabolic disorders (1 source) Hypercalcemia; Translations: [Hypercalcemia] 05-04-2024 Chronic Other nutritional; endocrine; and metabolic disorders (20 sources) Adult failure to thrive syndrome; Translations: [Adult failure to thrive] 04-10-2023 Episodic Other nutritional; endocrine; and metabolic disorders (20 sources) Adult failure to thrive; Translations: [Adult failure to thrive] 04-10-2023 Episodic Other screening for suspected conditions (not mental disorders or infectious disease) (20 sources) Patient encounter status; Translations: [Encounter for screening for malignant neoplasm of colon] Onset: 4 11-02-2021 Episodic Parkinson`s disease (20 sources) Parkinson's disease; Translations: [Parkinson's disease] Onset: 3 12-23-2022 Chronic Parkinson`s disease (2 sources) Parkinson`s disease; Translations: [Parkinson's disease without dyskinesia, without mention of fluctuations] Onset: 4 Rosaura-; endo-; and myocarditis; cardiomyopathy (except that caused by tuberculosis or sexually transmitted disease) (20 sources) Cardiomyopathy; Translations: [Other cardiomyopathies] Chronic Peripheral and visceral atherosclerosis (20 sources) Peripheral vascular disease, unspecified; Translations: [Peripheral arterial disease] Onset: 3 12-23-2022 Chronic Pulmonary heart disease (20 sources) Secondary pulmonary hypertension; Translations: [Pulmonary hypertension, secondary] Onset: 7 03-10-2017 Chronic Residual codes; unclassified (20 sources) Sleep apnea; Translations: [Sleep apnea, unspecified] Onset: 7 02-24-2017 Chronic Residual codes; unclassified (20 sources) Obstructive sleep apnea syndrome; Translations: [Obstructive sleep apnea (adult) (pediatric)] 04-14-2017 Chronic Residual codes; unclassified (20 sources) H/O: brain disorder; Translations: [Personal history of other specified conditions] 04-14-2017 Episodic Residual codes; unclassified (3 sources) Pain; Translations: [Pain, unspecified] Episodic Residual codes; unclassified (1 source) Tobacco user; Translations: [Tobacco use] Episodic Residual codes; unclassified (20 sources) Altered mental status; Translations: [Altered mental status, unspecified] 06-21-2023 Episodic Residual codes; unclassified (11 sources) Altered mental status, unspecified; Translations: [Altered mental status] 06-26-2023 Episodic Respiratory failure; insufficiency; arrest (adult) (20 sources) Uowor-eg-mgvwjja respiratory failure; Translations: [Acute and chronic respiratory failure with hypoxia] Onset: 3 Chronic Secondary malignancies (1 source) Secondary malignant neoplasm of bone; Translations: [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)] Onset: 5 Chronic Spondylosis; intervertebral disc disorders; other back problems (3 sources) Low back pain; Translations: [Low back pain without sciatica, unspecified back pain laterality, unspecified chronicity] Episodic Syncope (20 sources) Near syncope; Translations: [Syncope and collapse] 12-03-2019 Episodic Thyroid disorders (20 sources) Thyroid nodule; Translations: [Nontoxic single thyroid nodule] 12-23-2022 Chronic Unclassified (9 sources) Parkinsonism; Translations: [Parkinsonism] 11-30-2023 Chronic Unclassified (2 sources) Preprocedural examination done 05-17-2025 Urinary tract infections (20 sources) Acute urinary tract infection; Translations: [Urinary tract infection, site not specified] 08-10-2021 Episodic Past or Other Problems Problem Classification Problem Date Documented Da te Episodic/Chronic Abdominal pain (20 sources) Abdominal pain; Translations: [Unspecified abdominal pain] Onset: 12-31-2013 11-02-2021 Episodic Chronic ulcer of skin (20 sources) Pressure ulcer of unspecified site, unspecified stage; Translations: [Pressure ulcer, unspecified site] Onset: 12-31-2013 Resolved: 04-05-2017 11-02-2021 Chronic Coronary atherosclerosis and other heart disease (20 sources) History of percutaneous coronary intervention; Translations: [Coronary angioplasty status] Onset: 10-10-2019 12-02-2019 Episodic Comment on above: Thrombectomy of occl usion of distal Ramus 10/10/19 Epilepsy; convulsions (20 sources) Seizure; Translations: [Post traumatic seizures] Onset: 12-31-2013 11-02-2021 Episodic Malaise and fatigue (20 sources) Asthenia; Translations: [Other malaise] Onset: 12-31-2013 11-02-2021 Episodic Other aftercare (20 sources) Long-term current use of anticoagulant; Translations: [intermediate (current) use of anticoagulants] Onset: 02-24-2017 02-24-2017 Episodic Other aftercare (20 sources) Drug therapy finding; Translations: [intermediate (current) use of anticoagulants] Onset: 10-25-2019 10-25-2019 Episodic Other aftercare (2 sources) Other chcf (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; Translations: [Other salvage determiner (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] Onset: 07-25-2024 Episodic Other circulatory disease (20 sources) History of cerebrovascular accident; Translations: [Personal history of transient ischemic attack (TIA), and cerebral infarction without residual deficits] Onset: 11-07-2010 02-24-2017 Episodic Other gastrointestinal disorders (20 sources) Constipation; Translations: [Other constipation] Onset: 12-31-2013 11-02-2021 Episodic Other gastrointestinal disorders (1 source) Other ascites; Translations: [Cirrhosis of liver with ascites, unspecified hepatic cirrhosis type (HCC)] Onset: 03-08-2019 Episodic Other lower respiratory disease (20 sources) Apnea; Translations: [Apnea, not elsewhere classified] Onset: 12-31-2013 Resolved: 08-11-2016 11-02-2021 Episodic Other nutritional; endocrine; and metabolic disorders (20 sources) Obesity; Translations: [Obesity, unspecified] Onset: 12-31-2013 Resolved: 07-29-2022 11-02-2021 Chronic Other nutritional; endocrine; and metabolic disorders (20 sources) Obesity caused by energy imbalance; Translations: [Other obesity due to excess calories] Onset: 07-16-2014 Resolved: 08-14-2019 08-14-2019 Chronic Other nutritional; endocrine; and metabolic disorders (20 sources) Obese class I; Translations: [Obesity, unspecified] Onset: 02-24-2017 Resolved: 08-14-2019 08-14-2019 Chronic Other skin disorders (20 sources) Eruption; Translations: [Rash and other nonspecific skin eruption] Onset: 12-31-2013 11-02-2021 Episodic Unclassified (20 sources) Contusion of left shoulder, initial encounter 10-04-2021 Unclassified (20 sources) Type 2 diabetes mellitus without complication; Translations: [Uncontrolled type 2 diabetes mellitus without complication, with long-term current use of insulin] Onset: 12-31-2013 Resolved: 10-07-2017 11-02-2021 Results Test Name Value Interpretation Reference Range Facility [facility] 05-16-2025 CNOV Office Visit ([facility] ) -- STEPH BAUMANN ([id number]) 1950 M Date Time Provider Department 05/16/25 3:50 PM EL LUCIO During your visit today, we recorded the following information about you: Temperature Pulse Blood pressure Weight 97.5 degrees 70/minute 113/64 78.1 kg Height 1.753 m Shara Johnston 05/16/2025 5:08 PM Signed What is the reason for your visit today? EST Who is your referring physician? Dr. Lucio Are you having poor oral intake? NO Have you had unintentional weight loss of 15 lbs/7 Kg in the last 3-6 months? NO Bowels: regular Wound: clean AND dry Temperature: No Drains: No Saida Soriano 05/16/2025 4:51 PM Signed CLINIC NOTE Steph Baumann [id number] SUBJECTIVE: Steph Baumann is a 74 year old male with PMHx of HTN, afib (on eiliquis), CHF s/p ICD, T2DM, liver cirrhosis, portal HTN, ALBINO, BPH who presents to clinic for evaluation of right inguinal hernia on 05/16/[address] Lucio. He was last seen by Dr. Lucio on 03/09/2021 for hernia, but was asymptomatic at the time and planned for watchful waiting especially I/s/o ascites and portal hypertension. Today, patient is endorsing rapid enlargement of right inguinal bulge particularly within the last few months and progressive pain with movement. No longer reducible since ~2 years ago. Ascites and portal hypertension are well-controlled. OBJECTIVE: BP 113/64 Pulse 70 Temp 36.4 ?C (97.5 ?F) (Temporal) Ht 175.3 cm (5' 9") Wt 78.1 kg (172 lb 3.2 oz) BMI 25.43 kg/m? General: Alert, no acute distress, appears well-nourished Cardiac: warm and well perfused Pulm: breathing comfortably on room air Abdomen: soft, non-tender, non-distended, large tender right inguinal bulge appreciated on exam ASSESSMENT AND PLAN Steph Baumann is a 74 year old male with PMHx of HTN, afib (on eiliquis), CHF s/p ICD, T2DM, liver cirrhosis, portal HTN, ALBINO, BPH who presents to clinic for evaluation of right inguinal hernia on 05/16/[address] Lucio. Discussed the risks and benefits of undergoing inguinal hernia repair vs watchful waiting I/s/o multiple comorbid conditions including ascites, liver cirrhosis, and CHF. Patient demonstrated risks and benefits of procedure and consented to open inguinal hernia repair due to progressive symptoms. Will contact Dr. Loredo for optimization of diuretics prior to surgery. PLAN - Will reach out to Dr. Loredo regarding optimization of diuretics prior to procedure - Office will reach out to schedule procedure Saida Soriano, MS4 General Surgery May 16, 2025 3:06 PM Hernia Team Emiliano (Otto Kendrick Rosenblatt): [phone] Mirza (Ce Bhatia Petro): [phone] After 6PM + weekends: [phone] El Lucio MD 05/16/2025 5:08 PM Signed Consultation requested by Dr. Narvaez for an opinion regarding right groin bulge. My final recommendations will be communicated back to the requesting physician by way of shared medical record or letter via US mail. Steph Baumann is a 74 year old male who presents with a large right inguinal hernia likely exacerbated by ascites from cirrhosis and CHF. He's had severe pain and even concern for partial obstructive symptoms with emesis. I'll message Dr. Loredo to make sure he's optimized and after discussing risks and benefits we'll plan for an elective repair in order to avoid an emergent presentation. We also discussed non-op management but his quality of life is so limited by this that he is willing to accept the risk of surgery. His POA is a friend of the family from [place] and the decision clearly weighs heavily on her so she understands the risks but also wants to give him agency in the decision and he clearly wants to move forward. Given his comorbidities we'll plan for at least a 2 night hospital stay before return to his SNF where he lives. El Lucio MD I have seen and evaluated the patient and discussed the case with the resident physician. I agree with the assessment and plan as documented in the resident?s note including a ROS that was reviewed and negative other than what was indicated in our notes. Patient consented for study? Not applicable Allergies As of Date: 05/16/2025 Noted Allergy Reaction METFORMIN 12/12/2020 6 - Diarrhea Comments: Even low dose caused diarrhea OXYCODONE-ACETAMINOPHEN 09/08/2023 16 - Unknown Date Reviewed: 05/16/2025 Reviewed by: Shara Johnston - Fully Assessed Reason for Visit: Established Patient [175] Primary Visit Diagnosis:Right inguinal hernia [K40.90] Prescriptions as of 05/16/2025 - BYDUREON BCISE 2 mg/0.85 mL injection Inject 2 mg subcutaneously one time a week. - diclofenac (VOLTAREN ARTHRITIS PAIN) 1 % topical gel Apply one application to right hip topically every 12 hours as needed for pain. - denosumab (PROLIA) 60 mg/mL Injection to be administered onc (more content not included)... Normal [facility] Ammoniaon 05-14-2025 Ammonia (P) [Moles/Vol] 20.1 umol/L Normal 16-60 [facility] Comment on above: Order Comment: 302.1 Performed By: #### L [id number] #### [facility] [address] [place], [address] Basic Metabolic Profile (BMP )on 04-24-2025 BUN/CRE 17.5 RATIO Normal 10-20 [facility] Comment on above: Performed By: #### L [id number] #### [facility] [address] [place], [address] Calcium [Mass/Vol] 8.7 mg/dL Normal 7.6-11.0 [facility] Comment on above: Performed By: #### L [id number] #### [facility] [address] [place], [address] Chloride [Moles/Vol] 107 mmol/L Normal 98-108 [facility] Comment on above: Performed By: #### L [id number] #### [facility] [address] [place], [address] CO2 [Moles/Vol] 20.4 mmol/L Low 21.0-32.0 [facility] Comment on above: Performed By: #### L [id number] #### [facility] [address] [place], [address] Creatinine [Mass/Vol] 1.01 mg/dL Normal 0.70-1.20 [facility] Comment on above: Performed By: #### L [id number] #### [facility] [address] [place], [address] GAP 8 Normal 5-15 [facility] Comment on above: Performed By: #### L [id number] #### [facility] [address] [place], [address] GFR/1.73 sq M.predicted among non-blacks MDRD (S/P/Bld) [Vol rate/Area] 79 mL/min/{1.73_m2} Normal >60 [facility] Comment on above: Result Comment: mL/m in/1.73m2 CKD-EPI Creatinine Equation (2020) Performed By: #### L [id number] #### [facility] [address] [place], [address] Glucose [Mass/Vol] 129 mg/dL High 70-99 [facility] Comment on above: Performed By: #### L [id number] #### [facility] [address] [place], [address] Potassium [Moles/Vol] 4.4 mmol/L Normal 3.3-5.1 [facility] Comment on above: Performed By: #### L [id number] #### [facility] [address] [place], [address] Sodium [Moles/Vol] 135 mmol/L Normal 133-145 [facility] Comment on above: Performed By: #### L [id number] #### [facility] [address] [place], [address] Urea nitrogen [Mass/Vol] 18 mg/dL Normal 4-19 [facility] Comment on above: Performed By: #### L [id number] #### [facility] [address] [place], [address] CBC-Complete Blood Cnt No Di ffon 04-24-2025 Erythrocyte distribution width (RBC) [Ratio] 14.4 % Normal 11.6-14.6 [facility] Comment on above: Performed By: #### L [id number] #### [facility] [address] [place], [address] Hematocrit (Bld) [Volume fraction] 38.5 % Low 40-54 [facility] Comment on above: Performed By: #### L [id number] #### [facility] [address] [place], [address] Hemoglobin (Bld) [Mass/Vol] 12.4 g/dL Low 13.0-16.5 [facility] Comment on above: Performed By: #### L [id number] #### [facility] [address] [place], [address] MCH (RBC) [Entitic mass] 32.4 pg High 27.0-32.0 [facility] Comment on above: Performed By: #### L [id number] #### [facility] [address] [place], [address] MCHC (RBC) [Mass/Vol] 32.2 g/dL Normal 32-36 [facility] Comment on above: Performed By: #### L [id number] #### [facility] [address] [place], [address] MCV (RBC) [Entitic vol] 100.5 fL High 80-94 [facility] Comment on above: Performed By: #### L [id number] #### [facility] [address] [place], [address] Platelet mean volume (Bld) [Entitic vol] 11.5 fL Normal 6.2-12.0 [facility] Comment on above: Performed By: #### L [id number] #### [facility] [address] [place], [address] Platelets (Bld) [#/Vol] 125 10*3/uL Low 150-450 [facility] Comment on above: Performed By: #### L [id number] #### [facility] [address] [place], [address] RBC (Bld) [#/Vol] 3.83 10*6/uL Low 4.6-6.2 [facility] Comment on above: Performed By: #### L [id number] #### [facility] [address] [place], [address] RDW SD 52.8 fl High 35.1-43.9 [facility] Comment on above: Performed By: #### L [id number] #### [facility] [address] [place], [place], [address] WBC (Bld) [#/Vol] 5.5 10*3/uL Normal 4.4-11.0 [facility] Comment on above: Performed By: #### L [id number] #### [facility] [address] [place], [address] Ammoniaon 04-12-2025 Ammonia (P) [Moles/Vol] 22.3 umol/L Normal [address] Comment on above: Order Comment: 302.1 Performed By: #### L [id number] #### [facility] [address] [place], [place], [address] Ammoniaon 03-15-2025 Ammonia (P) [Moles/Vol] 22.5 umol/L Normal [address] Comment on above: Order Comment: 302 Performed By: #### L [id number] #### [facility] [address] [place], [place], [address] Venous blood ammonia measure mentOrdered By: Elisa Narvaez on 03-15-2025 Ammonia (P) [Moles/Vol] 22.5 umol/L [facility] Absolute lymphocyte countOrd ered By: Elisa Narvaez on 03-11-2025 Lymphocytes Auto (Unsp spec) [#/Vol] 0.73 10*3/uL Low 0.83-4.51 [facility] Absolute neutrophil countOrd ered By: Elisa Narvaez on 03-11-2025 Neutrophils (Bld) [#/Vol] 4.8 10*3/uL 2.0-7.7 [facility] Anion gap in Serum or Plasma Ordered By: Elisa Narvaez on 03-11-2025 Anion gap [Moles/Vol] 9 mmol/L 5-15 [facility] Automated lymphocyte count a s percentage of total leukocytesOrdered By: Elisa Narvaez on 03-11-2025 Lymphocytes/100 WBC Auto (Unsp spec) 11.6 % Low 19-41 [facility] BUN/creatinine ratioOrdered By: Elisaely Narvaez on 03-11-2025 Urea nitrogen/Creatinine [Mass ratio] 17.9 mg/mg 10-20 [facility] Basophil percentageOrdered B y: Elisa Narvaez on 03-11-2025 Basophils/100 WBC (Bld) 0.5 % 0-1 [facility] Bilirubin, totalOrdered By: Elisaely Narvaez on 03-11-2025 Bilirubin [Mass/Vol] 0.44 mg/dL 0.00-1.30 [facility] CBC W/Diff, Automatedon Absolute Lymph 0.73 X10 3/uL Low 0.83-4.51 [facility] Comment on above: Order Comment: 302 Performed By: #### L [id number] #### [facility] [address] [place], [address] Absolute Neut 4.8 X10 3/uL Normal 2.0-7.7 [facility] Comment on above: Order Comment: 302 Performed By: #### L [id number] #### [facility] [address] [place], [address] Basophils/100 WBC (Bld) 0.5 % Normal 0-1 [facility] Comment on above: Order Comment: 302 Performed By: #### L [id number] #### [facility] [address] [place], [address] Eosinophils/100 WBC (Bld) 4.5 % Normal 0-5 [facility] Comment on above: Order Comment: 302 Performed By: #### L [id number] #### [facility] [address] [place], [address] Erythrocyte distribution width (RBC) [Ratio] 14.8 % High 11.6-14.6 [facility] Comment on above: Order Comment: 302 Performed By: #### L [id number] #### [facility] [address] [place], [address] Hematocrit (Bld) [Volume fraction] 37.5 % Low 40-54 [facility] Comment on above: Order Comment: 302 Performed By: #### L [id number] #### [facility] [address] [place], [address] Hemoglobin (Bld) [Mass/Vol] 12.0 g/dL Low 13.0-16.5 [facility] Comment on above: Order Comment: 302 Performed By: #### L [id number] #### [facility] [address] [place], [address] IG% 0.600 Normal 0.0-0.9 [facility] Comment on above: Order Comment: 302 Result Comment: IG% - Immature Granulocytes (promyelocytes, myelocytes and metamyelocytes) > 1% indicates that a LEFT SHIFT is Present. Performed By: #### L [id number] #### [facility] [address] [place], [address] Lymphocytes/100 WBC (Bld) 11.6 % Low 19-41 [facility] Comment on above: Order Comment: 302 Performed By: #### L [id number] #### [facility] [address] [place], [address] MCH (RBC) [Entitic mass] 32.2 pg High 27.0-32.0 [facility] Comment on above: Order Comment: 302 Performed By: #### L [id number] #### [facility] [address] [place], [address] MCHC (RBC) [Mass/Vol] 32.0 g/dL Normal 32-36 [facility] Comment on above: Order Comment: 302 Performed By: #### L [id number] #### [facility] [address] [place], [address] MCV (RBC) [Entitic vol] 100.5 fL High 80-94 [facility] Comment on above: Order Comment: 302 Performed By: #### L [id number] #### [facility] [address] [place], [address] Monocytes/100 WBC (Bld) 6.8 % Normal 0-10 [facility] Comment on above: Order Comment: 302 Performed By: #### L [id number] #### [facility] [address] [place], [address] Neutrophils/100 WBC (Bld) 76.0 % High 47-70 [facility] Comment on above: Order Comment: 302 Performed By: #### L [id number] #### [facility] [address] [place], [address] Nucleated RBC (Bld) [#/Vol] 0 10*3/uL Normal 0-5 [facility] Comment on above: Order Comment: 302 Performed By: #### L [id number] #### [facility] [address] [place], [address] Platelet mean volume (Bld) [Entitic vol] 11.6 fL Normal 6.2-12.0 [facility] Comment on above: Order Comment: 302 Performed By: #### L [id number] #### [facility] [address] [place], [address] Platelets (Bld) [#/Vol] 135 10*3/uL Low 150-450 [facility] Comment on above: Order Comment: 302 Performed By: #### L [id number] #### [facility] [address] [place], [address] RBC (Bld) [#/Vol] 3.73 10*6/uL Low 4.6-6.2 [facility] Comment on above: Order Comment: 302 Performed By: #### L [id number] #### [facility] [address] [place], [address] RDW SD 55.4 fl High 35.1-43.9 [facility] Comment on above: Order Comment: 302 Performed By: #### L [id number] #### [facility] [address] [place], [address] WBC (Bld) [#/Vol] 6.3 10*3/uL Normal 4.4-11.0 [facility] Comment on above: Order Comment: 302 Performed By: #### L [id number] #### [facility] [address] [place], [address] Carbon dioxide, total [Moles /volume] in Central venous bloodOrdered By: Elisa Narvaez on 03-11-2025 CO2 [Moles/Vol] 17.5 mmol/L Low 21.0-32.0 [facility] Chloride assayOrdered By: Lino Narvaez on 03-11-2025 Chloride [Moles/Vol] 111 mmol/L High 98-108 [facility] Comprehensive Metabolic Prof ilon 03-11-2025 Albumin [Mass/Vol] 3.6 g/dL Normal 3.4-4.8 [facility] Comment on above: Order Comment: 302 Performed By: #### L [id number] #### [facility] [address] [place], [address] Albumin/Globulin [Mass ratio] 1.2 {ratio} Normal 0.9-2.4 [facility] Comment on above: Order Comment: 302 Performed By: #### L [id number] #### [facility] [address] [place], [address] ALK PHOS 71 U/L Normal 40-129 [facility] Comment on above: Order Comment: 302 Performed By: #### L [id number] #### [facility] [address] [place], [address] ALT [Catalytic activity/Vol] 5 U/L Normal <=46 [facility] Comment on above: Order Comment: 302 Performed By: #### L [id number] #### [facility] [address] [place], [address] AST [Catalytic activity/Vol] 15 U/L Normal <=37 [facility] Comment on above: Order Comment: 302 Performed By: #### L [id number] #### [facility] [address] [place], [address] Bilirubin [Mass/Vol] 0.44 mg/dL Normal 0.00-1.30 [facility] Comment on above: Order Comment: 302 Performed By: #### L [id number] #### [facility] [address] [place], [address] BUN/CRE 17.9 RATIO Normal 10-20 [facility] Comment on above: Order Comment: 302 Performed By: #### L [id number] #### [facility] [address] [place], [address] Calcium [Mass/Vol] 8.0 mg/dL Normal 7.6-11.0 [facility] Comment on above: Order Comment: 302 Performed By: #### L [id number] #### [facility] [address] [place], [address] Chloride [Moles/Vol] 111 mmol/L High 98-108 [facility] Comment on above: Order Comment: 302 Performed By: #### L [id number] #### [facility] [address] [place], [address] CO2 [Moles/Vol] 17.5 mmol/L Low 21.0-32.0 [facility] Comment on above: Order Comment: 302 Performed By: #### L [id number] #### [facility] [address] [place], [address] Creatinine [Mass/Vol] 0.99 mg/dL Normal 0.70-1.20 [facility] Comment on above: Order Comment: 302 Performed By: #### L [id number] #### [facility] [address] [place], [address] GAP 9 Normal 5-15 [facility] Comment on above: Order Comment: 302 Performed By: #### L [id number] #### [facility] [address] [place], [address] GFR/1.73 sq M.predicted among non-blacks MDRD (S/P/Bld) [Vol rate/Area] 81 mL/min/{1.73_m2} Normal >60 [facility] Comment on above: Order Comment: 302 Result Comment: mL/m in/1.73m2 CKD-EPI Creatinine Equation (2020) Performed By: #### L 503.5510 #### [facility] [address] [place], [address] Globulin (S) [Mass/Vol] 3.1 g/dL Normal 2.2-4.2 [facility] Comment on above: Order Comment: 302 Performed By: #### L 503.5510 #### [facility] [address] [place], [address] Glucose [Mass/Vol] 99 mg/dL Normal 70-99 [facility] Comment on above: Order Comment: 302 Performed By: #### L 503.5510 #### [facility] [address] [place], [address] Potassium [Moles/Vol] 4.0 mmol/L Normal 3.3-5.1 [facility] Comment on above: Order Comment: 302 Performed By: #### L 503.5510 #### [facility] [address] [place], [place], [id number] Sodium [Moles/Vol] 137 mmol/L Normal 133-145 [facility] Comment on above: Order Comment: 302 Performed By: #### L 503.5510 #### [facility] [address] [place], [place], [id number] T PROT 6.7 g/dL Normal 5.9-8.4 [facility] Comment on above: Order Comment: 302 Performed By: #### L 503.5510 #### [facility] [address] [place], [place], [id number] Urea nitrogen [Mass/Vol] 18 mg/dL Normal 4-19 [facility] Comment on above: Order Comment: 302 Performed By: #### L 503.5510 #### [facility] [address] [place], [place], [address] Eosinophil percentageOrdered By: Elisa Narvaez on 03-11-2025 Eosinophils/100 WBC (Bld) 4.5 % 0-5 [facility] Erythrocyte distribution wid th ratioOrdered By: Elisa Narvaez on 03-11-2025 Erythrocyte distribution width (RBC) [Ratio] 14.8 % High 11.6-14.6 [facility] Erythrocyte distribution wid th standard deviationOrdered By: Elisa Narvaez on 03-11-2025 Erythrocyte distribution width (RBC) [Ratio] 55.4 fl High 35.1-43.9 [facility] Glomerular filtration rate ( GFR) estimation/1.73 sq m using serum, plasma, or whole bOrdered By: Elisa Narvaez on 03-11-2025 GFR/1.73 sq M.predicted among non-blacks MDRD (S/P/Bld) [Vol rate/Area] 81 mL/min/{1.73_m2} >60 [facility] Comment on above: mL/min/1.73m2 CKD-EP I Creatinine Equation (2020) Hematocrit Auto (Bld) [Volum e fraction]Ordered By: Elisa Narvaez on 03-11-2025 Hematocrit (Bld) [Volume fraction] 37.5 % Low 40-54 [facility] Hemoglobin measurementOrdere d By: Elisa Narvaez on 03-11-2025 Hemoglobin (Bld) [Mass/Vol] 12.0 g/dL Low 13.0-16.5 [facility] Immature granulocytes/100 WB C Auto (Bld)Ordered By: Elisa Narvaez on 03-11-2025 Immature granulocytes/100 WBC (Bld) 0.600 % 0.0-0.9 [facility] Comment on above: IG% - Immature Granu locytes (promyelocytes, myelocytes and metamyelocytes) > 1% indicates that a LEFT SHIFT is Present. International normalized rat io (INR) calculationOrdered By: Elisa Narvaez on 03-11-2025 INR Coag (Bld) [Relative time] 1.4 {INR} [facility] - Chemistry and C hemistry - challengeOrdered By: Elisa Narvaez on 03-11-2025 AST [Catalytic activity/Vol] 15 U/L <38 [facility] MCV (mean corpuscular volume ) determinationOrdered By: Elisa Narvaez on 03-11-2025 MCV (RBC) [Entitic vol] 100.5 fL High 80-94 [facility] Mean corpuscular hemoglobin (MCH) determinationOrdered By: Elisa Narvaez on 03-11-2025 MCH (RBC) [Entitic mass] 32.2 pg High 27.0-32.0 [facility] Mean corpuscular hemoglobin concentration (MCHC) determinationOrdered By: Elisa Narvaez on 03-11-2025 MCHC (RBC) [Mass/Vol] 32.0 g/dL 32-36 [facility] Mean platelet volume determi nationOrdered By: Elisa Narvaez on 03-11-2025 Platelet mean volume (Bld) [Entitic vol] 11.6 fL 6.2-12.0 [facility] Monocyte percentageOrdered B y: Elisa Narvaez on 03-11-2025 Monocytes/100 WBC (Bld) 6.8 % 0-10 [facility] Neutrophil percentageOrdered By: Elisa Narvaez on 03-11-2025 Neutrophils/100 WBC (Bld) 76.0 % High 47-70 [facility] Nucleated red blood cell per centageOrdered By: Elisa Narvaez on 03-11-2025 Nucleated RBC/100 WBC (Bld) [Ratio] 0 % 0-5 [facility] Platelet countOrdered By: Lino Narvaez on 03-11-2025 Platelets (Bld) [#/Vol] 135 10*3/uL Low 150-450 [facility] Potassium measurement (mass/ volume)Ordered By: Elisa Narvaez on 03-11-2025 Potassium (Unsp spec) [Mass/Vol] 4.0 mmol/L 3.3-5.1 [facility] Prothrombin Time w/INRon INR Coag (PPP) [Relative time] 1.4 {INR} Normal [facility] Comment on above: Order Comment: 302 Performed By: #### L 503.5510 #### [facility] [address] [place], [place], [address] (588) PT Coag (PPP) [Time] 17.7 s High 11.7-14.9 [facility] Comment on above: Order Comment: 302 Performed By: #### L 503.5510 #### [facility] [address] [place], [address] Prothrombin timeOrdered By: Elisa Narvaez on 03-11-2025 PT Coag (PPP) [Time] 17.7 s High 11.7-14.9 [facility] RBC Auto (Bld) [#/Vol]Ordere d By: Elisa Narvaez on 03-11-2025 RBC (Bld) [#/Vol] 3.73 10*6/uL Low 4.6-6.2 [facility] Serum creatinine measurement (mass/volume)Ordered By: Elisa Narvaez on 03-11-2025 Creatinine [Mass/Vol] 0.99 mg/dL 0.70-1.20 [facility] Serum globulin measurementOr dered By: Elisa Narvaez on 03-11-2025 Globulin (S) [Mass/Vol] 3.1 g/dL 2.2-4.2 [facility] Serum glucose measurement (m ass/volume)Ordered By: Elisa Narvaez on 03-11-2025 Glucose [Mass/Vol] 99 mg/dL 70-99 [facility] Serum or plasma alanine gary otransferase (ALT) measurementOrdered By: Elisa Narvaez on 03-11-2025 ALT [Catalytic activity/Vol] 5 U/L <47 [facility] Serum or plasma albumin aby urement (mass/volume)Ordered By: Elisa Narvaez on 03-11-2025 Albumin [Mass/Vol] 3.6 g/dL 3.4-4.8 [facility] Serum or plasma albumin/glob ulin mass ratioOrdered By: Elisa Narvaez on 03-11-2025 Albumin/Globulin [Mass ratio] 1.2 {ratio} 0.9-2.4 [facility] Serum or plasma alkaline cristo sphatase measurementOrdered By: Elisa Narvaez on 03-11-2025 ALP [Catalytic activity/Vol] 71 U/L 40-129 [facility] Serum or plasma calcium aby urement (mass/volume)Ordered By: Elisa Narvaez on 03-11-2025 Calcium [Mass/Vol] 8.0 mg/dL 7.6-11.0 [facility] Serum or plasma urea nitroge n measurement (mass/volume)Ordered By: Elisa Narvaez on 03-11-2025 Urea nitrogen [Mass/Vol] 18 mg/dL 4-19 [facility] Sodium levelOrdered By: Alden Narvaez on 03-11-2025 Sodium [Moles/Vol] 137 mmol/L 133-145 [facility] Total proteinOrdered By: Dante Narvaez on 03-11-2025 Protein [Mass/Vol] 6.7 g/dL 5.9-8.4 [facility] White blood cell (WBC) count Ordered By: Elisa Narvaez on 03-11-2025 WBC (Bld) [#/Vol] 6.3 10*3/uL 4.4-11.0 [facility] CNOVSPon 03-06-2025 CNOVSP Visit (SP) Office (H EMAWS) -- STEPH BAUMANN ([id number]) 1950 M Date Time Provider Department 03/06/25 10:10 AM JONNATHAN SWIFT During your visit today, we recorded the following information about you: Temperature Pulse Blood pressure 97.5 degrees 57/minute 98/52 Jonnathan Swift DO 03/06/2025 11:18 AM Signed Oncologic problem(s): 1) Castrate sensitive prostate cancer. HPI: The patient is a 74-year-old male with a past medical history significant [...] biopsy on 11/12/2021. All 4 cores demonstrated Lottie grade 7, 2 of the cores were [...] 10/21/2022 and again on 01/27/2023 and 09/13/2023. Per initial office consultation: Insurance no longer covers Dr. Saravia. Seen by Rustam Masterson PA-C. Referred here. Most recent injection was about 4 months ago. On bicalutamide. No diarrhea. On lactulose BID for cirrhosis. Here today with POElizabeth from [place] (daughter's friend). Visits him every 2 weeks. Diagnosed with Parkinsons in April. Requires wheelchair. Was independent prior to that. Living at [facility]. Recently started having dysuria "deep in" when starts urinating. No gross hematuria. Start[place] antibiotic at [place]. Only pain is right hip and low back if sits too long. Right hip pain has been evaluated by his orthopedic several times as well as the low back pain. No clear etiology. Presents for ongoing oncologic management. Interim history: He is here today with Bob his friend and POA who accompanies him to all of his medical visits. Since I last saw him, no significant changes. Continues to have right hip pain and was told by orthopedic surgery most likely due to orthopedic surgery most likely due to nerve damage from previous surgery. He is seeing [facility]. Otherwise his left hand has spasms. Has spasms. No MS pain otherwise. Denies jaw pain. Wears a diaper for incontinence but no complaints of dysuria. 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 Warfarin since. Cardiomyopathy, unspecified (HCC) Chronic combined systolic and diastolic congestive heart failure (HCC) Chronic kidney disease, stage 3b (HCC) Chronic respiratory failure with hypoxia (HCC) Epilepsy, unspecified, not intractable, without status epilepticus (HCC) Esophageal reflux Essential and other specified forms of tremor 0 (more content not included)... Normal [facility] PSA SerPl-mCncon 03-06-2025 Prostate specific Ag [Mass/Vol] ng/mL Normal <2.60 [facility] Comment on above: Order Comment: Speci men Type: BLOOD SPECIMEN Ordering Facility: [facility] Address: [address] [place] [address] Result Comment: Radha saab PSA test methodology used is the Electrochemiluminescence Immunoassay by [employer]. Total PSA values by differing methodologies cannot be interchanged. Performed By: #### 5 8410-2 #### [facility] CLIA [id number] [address] [place] [address] [place] Ammoniaon 02-15-2025 Ammonia (P) [Moles/Vol] 20.8 umol/L Normal [facility] Comment on above: Performed By: #### L 503.5510 #### [facility] [place], [address] Venous blood ammonia measure mentOrdered By: Elisa Narvaez on 02-15-2025 Ammonia (P) [Moles/Vol] 20.8 umol/L - [facility] Srinivasan 02-14-2025 JONGN Telephone (DDQ) -- STEPH BAUMANN ([id number]) 1950 M Date Time Provider Department 02/14/25 MERLIN LOREDO DDBrant During your visit today, we recorded the following information about you: Paulette Nguyen 02/14/2025 3:02 PM Signed Patient called to discuss his most recent lab results, she would like a rt call. Merlin Loredo MD 02/15/2025 1:12 PM Signed Mayra, Please let Bob know I have reviewed the lab tests and liver tests are normal. Thee were no surprises. We discussed other test results in office. Let me know if she has additional questions. MD Chetan Walters Osas, RN 02/15/2025 2:50 PM Signed Nurse called vik Rojas. She confirmed pt name and Nurse relayed update to Bob Rojas is pleased w/ the update. She had no further questions or concerns Mayra Benton RN February 15, 2025 2:50 PM Allergies As of Date: 02/14/2025 Noted Allergy Reaction METFORMIN 12/12/2020 6 - Diarrhea Comments: Even low dose caused diarrhea OXYCODONE-ACETAMINOPHEN 09/08/2023 16 - Unknown Date Reviewed: 02/13/2025 Reviewed by: Kim De Oliveira LPN - Fully Assessed Reason for Visit: Results [95] Prescriptions as of 02/15/2025 - BYDUREON BCISE 2 mg/0.85 mL injection Inject 2 mg subcutaneously one time a week. - diclofenac (VOLTAREN ARTHRITIS PAIN) 1 % topical gel Apply one application to right hip topically every 12 hours as needed for pain. - denosumab (PROLIA) 60 mg/mL Injection to be administered once every 6 months - lactulose 20 gram/30 mL solution Take 45 mL by mouth three times a day. - lisinopril (ZESTRIL) 5 mg tablet Take 5 mg by mouth once daily. - insulin aspart U-100 (NOVOLOG) 100 unit/mL Inject subcutaneously three times a day before meals. Uses sliding scale - aluminum-magnesium hydroxide-simethicone (MAALOX,MYLANTA,MAG-AL PLUS) 200-200-20 mg/5 mL suspension Take 30 mL by mouth every 4 hours as needed. - bisacodyl (DULCOLAX) 10 mg supp 10 mg by RECTAL route once daily as needed for constipation. - sodium phosphate,mono-dibasic (FLEET ENEMA RECTAL) 1 Enema by RECTAL route as needed. - dextrose (GLUCOSE GEL ORAL) Take 1 Dose by mouth as needed. - GUAIFENESIN ORAL Take 10 mL by mouth every 4 hours as needed. - magnesium hydroxide (MILK OF MAGNESIA ORAL) Take 30 mL by mouth as needed. - methyl salicylate-menthol (MUSCLE RUB) 15-10 % topical cream Apply to right hip topically in the morning for pain. - potassium chloride ER (KLOR-CON) 20 mEq tablet Take 20 mEq by mouth once daily. - cholecalciferol (VITAMIN D-3) 50 mcg (2,000 unit) tablet Take 2,000 Units by mouth once daily. - sertraline (ZOLOFT) 50 mg tablet Take 50 mg by mouth once daily. - acetaZOLAMIDE (DIAMOX) 250 mg tablet Take 250 mg by mouth two times a day. - docusate sodium (COLACE) 100 mg capsule Take 100 mg by mouth two times a day. - pantoprazole DR (PROTONIX) 40 mg tablet Take 40 mg by mouth two times a day. - dulaglutide (TRULICITY) 3 mg/0.5 mL pen injector Inject 3 mg subcutaneously one time a week. Tuesday - GLUCAGON EMERGENCY KIT, HUMAN, INJECTION Inject 1 mL subcutaneously as needed. - Sennosides 8.6 mg cap Take 17.2 mg by mouth daily at bedtime. - INSULIN LISPRO SUBCUTANEOUS Inject subcutaneously. Per sliding scale - traMADol (ULTRAM) 50 mg tablet Take 50 mg by mouth every 6 hours as needed for pain. - carvedilol (COREG) 3.125 mg tablet Take 1 tablet by mouth twice daily. - ondansetron orally disintegrating (ZOFRAN ODT) 4 mg disintegrating tablet Take 1 tablet by mouth every 8 hours as needed for nausea/vomiting. - baclofen (LIORESAL) 20 mg tablet Take 20 mg by mouth three times a day. - apixaban (ELIQUIS) 5 mg tab(s) Take 1 tablet by mouth twice daily. - bumetanide (BUMEX) 1 mg tablet Take 1 tablet by mouth once daily. - insulin glargine (BASAGLAR KWIKPEN U-100 INSULIN) 100 unit/mL (3 mL) Inject 27 Units subcutaneously daily at bedtime. Adjust dose as directed - carbidopa-levodopa (SINEMET 25-100) 25-100 mg per tablet Take 2 tablets by mouth three times a day. - loratadine (CLARITIN) 10 mg tablet Take 1 tablet by mouth once daily as needed. - fluticasone-vilanterol (BREO ELLIPTA) 100-25 mcg/dose inhaler Inhale 1 Inhalation as instructed once daily. - bicalutamide (CASODEX) 50 mg tablet Take 50 mg by mouth once daily. - albuterol HFA (VENTOLIN HFA) 90 mcg/actuation [...] with humidification. lifetime supplies. Dx ALBINO - Multivitamin ORAL capsule Take 1 capsule by mouth once daily. Problem List As Of Date 02/14/2025 Noted R (more content not included)... Normal [facility] CBC W Auto Differential pane l (Bld)on 02-13-2025 Basophils (Bld) [#/Vol] 0.04 10*3/uL Normal <0.11 [facility] Comment on above: Order Comment: Speci men Type: BLOOD SPECIMEN Ordering Facility: [facility] Address: [address] [place] [address] Performed By: #### 5 8410-2 #### [facility] CLIA [id number] [address] [place], [place] [address] [place] [address] [place] Basophils/100 WBC (Bld) 0.7 % Normal C [facility] Comment on above: Order Comment: Speci men Type: BLOOD SPECIMEN Ordering Facility: [facility] Address: [address] [place] [address] Performed By: #### 5 8410-2 #### [facility] CLIA [id number] [address] [place] [address] [place] Differential cell count method Nom (Bld) Auto Normal [facility] Comment on above: Order Comment: Speci men Type: BLOOD SPECIMEN Ordering Facility: [facility] Address: [address] [place] [address] Performed By: #### 5 8410-2 #### [facility] CLIA [id number] [address] [place] [address] [place] Eosinophils (Bld) [#/Vol] 0.27 10*3/uL Normal <0.46 [facility] Comment on above: Order Comment: Speci men Type: BLOOD SPECIMEN Ordering Facility: [facility] Address: [address] [place] [address] Performed By: #### 5 8410-2 #### [facility] CLIA [id number] [address] [place] [address] [place] Eosinophils/100 WBC (Bld) 4.5 % Normal [facility] Comment on above: Order Comment: Speci men Type: BLOOD SPECIMEN Ordering Facility: [facility] Address: [address] [place] [address] Performed By: #### 5 8410-2 #### [facility] CLIA [id number] [address] [place] [address] [place] Erythrocyte distribution width (RBC) [Ratio] 14.6 % Normal 11.5-15.0 [facility] Comment on above: Order Comment: Speci men Type: BLOOD SPECIMEN Ordering Facility: [facility] Address: [address] [place] [address] Performed By: #### 5 8410-2 #### [facility] CLIA [id number] [address] [place] [address] [place] Hematocrit (Bld) [Volume fraction] 38.3 % Low 39.0-51.0 [facility] Comment on above: Order Comment: Speci men Type: BLOOD SPECIMEN Ordering Facility: [facility] Address: [address] [place] [address] Performed By: #### 5 8410-2 #### [facility] CLIA [id number] [address] [place] [address] [place] Hemoglobin (Bld) [Mass/Vol] 12.3 g/dL Low 13.0-17.0 [facility] Comment on above: Order Comment: Speci men Type: BLOOD SPECIMEN Ordering Facility: [facility] Address: [address] [place] [address] Performed By: #### 5 8410-2 #### [facility] CLIA [id number] [address] [place] [address] [place] Immature granulocytes (Bld) [#/Vol] 0.05 10*3/uL Normal <0.10 [facility] Comment on above: Order Comment: Speci men Type: BLOOD SPECIMEN Ordering Facility: [facility] Address: [address] [place] [address] Performed By: #### 5 8410-2 #### [facility] CLIA [id number] [address] [place] [address] [place] Immature granulocytes/100 WBC (Bld) 0.8 % Normal [facility] Comment on above: Order Comment: Speci men Type: BLOOD SPECIMEN Ordering Facility: [facility] Address: [address] [place] [address] Performed By: #### 5 8410-2 #### [facility] CLIA [id number] [address] [place] [address] [place] Lymphocytes (Bld) [#/Vol] 0.58 10*3/uL Low 1.00-4.00 [facility] Comment on above: Order Comment: Speci men Type: BLOOD SPECIMEN Ordering Facility: [facility] Address: [address] [place] [address] Performed By: #### 5 8410-2 #### [facility] CLIA [id number] [address] [place] [address] [place] Lymphocytes/100 WBC (Bld) 9.6 % Normal [facility] Comment on above: Order Comment: Speci men Type: BLOOD SPECIMEN Ordering Facility: [facility] Address: [address] [place] [address] Performed By: #### 5 8410-2 #### [facility] CLIA [id number] [address] [place] [address] [place] MCH (RBC) [Entitic mass] 31.7 pg Normal 26.0-34.0 [facility] Comment on above: Order Comment: Speci men Type: BLOOD SPECIMEN Ordering [facility]: [facility] Address: [address] [place] [address] Performed By: #### 5 8410-2 #### [facility] CLIA [id number] [address] [place] [address] [place] MCHC (RBC) [Mass/Vol] 32.1 g/dL Normal 30.5-36.0 [facility] Comment on above: Order Comment: Speci men Type: BLOOD SPECIMEN Ordering [facility]: [facility] Address: [address] [place] [address] Performed By: #### 5 8410-2 #### [facility] CLIA [id number] [address] [place] [address] [place] MCV (RBC) [Entitic vol] 98.7 fL Normal 80.0-100.0 C [facility] Comment on above: Order Comment: Speci men Type: BLOOD SPECIMEN Ordering [facility]: [facility] Address: [address] [place] [address] Performed By: #### 5 8410-2 #### [facility] CLIA [id number] [address] [place] [address] [place] Monocytes (Bld) [#/Vol] 0.36 10*3/uL Normal <0.87 [facility] Comment on above: Order Comment: Speci men Type: BLOOD SPECIMEN Ordering Facility: [facility] Address: [address] [place] [address] Performed By: #### 5 8410-2 #### [facility] CLIA [id number] [address] [place] [address] [place] Monocytes/100 WBC (Bld) 6.0 % Normal [facility] Comment on above: Order Comment: Speci men Type: BLOOD SPECIMEN Ordering [facility]: [facility] Address: [address] [place] [address] Performed By: #### 5 8410-2 #### [facility] CLIA [id number] [address] [place] [address] [place] Neutrophils (Bld) [#/Vol] 4.72 10*3/uL Normal 1.45-7.50 [facility] Comment on above: Order Comment: Speci men Type: BLOOD SPECIMEN Ordering Facility: [facility] Address: [address] [place] [address] Performed By: #### 5 8410-2 #### [facility] CLIA [id number] [address] [place] [address] [place] Neutrophils/100 WBC (Bld) 78.4 % Normal [facility] Comment on above: Order Comment: Speci men Type: BLOOD SPECIMEN Ordering [facility]: [facility] Address: [address] [place] [address] Performed By: #### 5 8410-2 #### [facility] CLIA [id number] [address] [place] [address] [place] Nucleated RBC (Bld) [#/Vol] 10*3/uL Normal <0.01 [facility] Comment on above: Order Comment: Speci men Type: BLOOD SPECIMEN Ordering Facility: [facility] Address: [address] [place] [address] Performed By: #### 5 8410-2 #### [facility] CLIA [id number] [address] [place] [address] [place] Nucleated RBC/100 WBC (Bld) [Ratio] 0.0 /100 WBC Normal [facility] Comment on above: Order Comment: Speci men Type: BLOOD SPECIMEN Ordering [facility]: [facility] Address: [address] [place] [address] Performed By: #### 5 8410-2 #### [facility] CLIA [id number] [address] [place] [address] [place] Platelet mean volume (Bld) [Entitic vol] 12.1 fL Normal 9.0-12.7 [facility] Comment on above: Order Comment: Speci men Type: BLOOD SPECIMEN Ordering [facility]: [facility] Address: [address] [place] [address] Performed By: #### 5 8410-2 #### [facility] CLIA [id number] [address] [place] [address] [place] Platelets (Bld) [#/Vol] 135 10*3/uL Low 150-400 [facility] Comment on above: Order Comment: Speci men Type: BLOOD SPECIMEN Order[facility]: [facility] Address: [address] [place] [address] Performed By: #### 5 8410-2 #### [facility] CLIA [id number] [address] [place] [address] [place] RBC (Bld) [#/Vol] 3.88 10*6/uL Low 4.20-6.00 [facility] Comment on above: Order Comment: Speci men Type: BLOOD SPECIMEN [facility]: [facility] Address: [address] [place] [address] Performed By: #### 5 8410-2 #### [facility] CLIA [id number] [address] [place] [address] [place] WBC (Bld) [#/Vol] 6.02 10*3/uL Normal 3.70-11.00 [facility] Comment on above: Order Comment: Speci men Type: BLOOD SPECIMEN Order[facility]: [facility] Address: [address] [place] [address] Performed By: #### 5 8410-2 #### [facility] CLIA [id number] [address] [place] [address] CNOVon 02-13-2025 CNOV Office Visit (GASTA5 ) -- STEPH BAUMANN ([id number]) 1950 Date Time Provider Department 02/13/25 2:15 PM MERLIN LOREDO GASTA5 During your visit today, we recorded the following information about you: Temperature Pulse Blood pressure Weight 97.6 degrees 40/minute 96/42 80.7 kg Height 1.753 m Merlin Loredo MD 02/13/2025 3:31 PM Signed Patient is a 74-year-old male presenting for follow-up on liver damage. He is accompanied by his POA, Bob Ferraro. Patient has a history of liver damage, initially suspected to be cirrhosis based on a FibroScan performed several years ago, which showed a liver stiffness measurement of 31 kPa. He was placed on a salt restriction diet at that time. A recent FibroScan showed a significant improvement, with a liver stiffness measurement of 7.1 kPa, making cirrhosis unlikely. Patient is currently on carvedilol (Coreg) for the management of small esophageal varices identified during a previous endoscopy. He is reportedly taking the medication twice daily, although the exact dosage is unclear. His POA notes that his heart rate was recorded at 37 bpm today, which she attributes to the carvedilol. She also mentions that patient seems to sleep a lot, which she believes may be due to a combination of the carvedilol and his pain medication. Past Diagnostic Results: - FibroScan (several years ago): Liver stiffness measurement of 31 kPa, consistent with cirrhosis. - FibroScan (recent): Liver stiffness measurement of 7.1 kPa, making cirrhosis unlikely. - Ultrasound (today): Normal liver appearance. - Ultrasound (August 30): Liver appeared cirrhotic; gallstones present. - Endoscopy (date unspecified): Small esophageal varices identified. - Lab Work (today): - Prothrombin time: Normal. - INR: Normal. - CBC: Normal. - LFTs: Pending. - Lab Work (August): LFTs were excellent. PAST MEDICAL HISTORY Diagnosis Date Adult failure to thrive Atherosclerotic heart disease of [place] coronary artery without angina pectoris Atrial fibrillation [...] or unspecified chronic kidney disease ICD (implantable cardioverter-defibrillator ), biventricular, in situ 10/[address] 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 Consistently compliant 04/14/2017. TO Other malaise Other symbolic dysfunctions Parkinson's disease (HCC) Personal history of transient ischemic attack (TIA), [...] SURGICAL HISTORY OF 10/2019 Placement of BiVICD BP (!) 96/42 (BP Site: Right Arm, BP Position: Sitting, BP Cuff Size: Regular Adult) Pulse (!) 40 Temp 36.4 ?C (97.6 ?F) (Temporal) Ht 175.3 cm (5' 9") Wt 80.7 kg (178 lb) SpO2 95% BMI 26.29 kg/m? HEENT: neg neuro: alert oriented; severely impaired due to PArkinsons and repeated neurol events Impression: 1. Liver disease (K76.9) Previous FibroScan showed significant improvement from 31 to 7.1, indicating a decreased likelihood of cirrhosis. Recent ultrasound demonstrated a normal-appearing liver. Prior endoscopy revealed small esophageal varices. Patient was on carvedilol for variceal prophylaxis, but current heart rate is critically low at 37 bpm, likely due (more content not included)... Normal [facility] Comprehensive metabolic 2000 panelon 02-13-2025 Albumin [Mass/Vol] 4.1 g/dL Normal 3.9-4.9 [facility] Comment on above: Order Comment: Ella rosenberg Type: BLOOD SPECIMEN [facility]ing Facility: [facility] Address: [address] [place] [address] Performed By: #### 5 8410-2 #### [facility] CLIA [id number] [address] [place] [address] [place] ALP [Catalytic activity/Vol] 70 U/L Normal 38-113 [facility] Comment on above: Order Comment: Speci men Type: BLOOD SPECIMEN [facility]ing Facility: [facility] Address: [address] [place] [address] Performed By: #### 5 8410-2 #### [facility] CLIA [id number] [address] [place] [address] [place] ALT [Catalytic activity/Vol] 7 U/L Low 10-54 [facility] Comment on above: Order Comment: Speci men Type: BLOOD SPECIMEN [facility]ing Facility: [facility] Address: [address] [place], [place] [id number] Performed By: #### 5 8410-2 #### [facility] CLIA [id number] [address] [place], [place] [id number] [place] Anion gap [Moles/Vol] 8 mmol/L Normal 8-15 [facility] Comment on above: Order Comment: Speci men Type: BLOOD SPECIMEN [facility]ing [facility]: [facility] Address: [address] [place] [address] Performed By: #### 5 8410-2 #### [facility] CLIA [id number] [address] [place] [address] [place] AST [Catalytic activity/Vol] 15 U/L Normal 14-40 [facility] Comment on above: Order Comment: Speci men Type: BLOOD SPECIMEN [facility]: [facility] Address: [address] [place] [address] Performed By: #### 5 8410-2 #### [facility] CLIA [id number] [address] [place] [address] [place] Bilirubin [Mass/Vol] 0.3 mg/dL Normal 0.2-1.3 [facility] Comment on above: Order Comment: Speci men Type: BLOOD SPECIMEN [facility] Address: [address] [place], [place] [address] Performed By: #### 5 8410-2 #### [facility] CLIA [id number] [address] [place] [address] [place] Calcium [Mass/Vol] 9.0 mg/dL Normal 8.5-10.2 [facility] Comment on above: Order Comment: Speci men Type: BLOOD SPECIMEN [facility] Address: [address] [place], [place] [address] Performed By: #### 5 8410-2 #### [facility] CLIA [id number] [address] [place] [address] [place] Chloride [Moles/Vol] 106 mmol/L Normal 98-107 [facility] Comment on above: Order Comment: Speci men Type: BLOOD SPECIMEN [facility] Address: [address] [place] [address] Performed By: #### 5 8410-2 #### [facility] CLIA [id number] [address] [place] [address] [place] CO2 [Moles/Vol] 22 mmol/L Normal 22-30 [facility] Comment on above: Order Comment: Speci men Type: BLOOD SPECIMEN [facility] Address: [address] [place] [address] Performed By: #### 5 8410-2 #### [facility] CLIA [id number] [address] [place] [address] [place] Creatinine [Mass/Vol] 0.96 mg/dL Normal 0.73-1.22 [facility] Comment on above: Order Comment: Speci men Type: BLOOD SPECIMEN [facility] Address: [address] [place] [address] Performed By: #### 5 8410-2 #### [facility] CLIA [id number] [address] [place] [address] [place] Creatinine and Glomerular filtration rate.predicted panel (S/P/Bld) 84 mL/min/1.73m??? Normal >=60 [facility] Comment on above: Order Comment: Speci men Type: BLOOD SPECIMEN [facility] Address: [address] [place] [address] Result Comment: Rossy mated Glomerular Filtration Rate (eGFR) is calculated using the 2020 CKD-EPI creatinine equation. This equation utilizes serum creatinine, sex, and age as parameters. The creatinine assay has traceable calibration to isotope dilution-mass spectrometry. Refer to KDIGO guidelines for clinical interpretation. In patients with unstable renal function, e.g. those with acute kidney injury, the eGFR may not accurately reflect actual GFR. Performed By: #### 5 8410-2 #### [facility] CLIA [id number] [address] [place] [address] [place] Glucose [Mass/Vol] 138 mg/dL High 74-99 [facility] Comment on above: Order Comment: Speci men Type: BLOOD SPECIMEN [facility] Address: [address] [place] [address] Result Comment: The [place] [employer] (ADA) provides guidance for cutoff values for fasting glucose and random glucose. The ADA defines fasting as no caloric intake for at least 8 hours. Fasting plasma glucose results between 100 to 125 mg/dL indicate increased risk for diabetes (prediabetes). Fasting plasma glucose results greater than or equal to 126 mg/dL meet the criteria for diagnosis of diabetes. In the absence of unequivocal hyperglycemia, results should be confirmed by repeat testing. In a patient with classic symptoms of hyperglycemia or hyperglycemic crisis, random plasma glucose results greater than or equal to 200 mg/dL meet the criteria for diagnosis of diabetes. Reference: Standards of Medical Care in Diabetes 2016, [place] [employer]. Diabetes Care. 2016.39(Suppl 1). Performed By: #### 5 8410-2 #### [facility] CLIA [id number] [address] [place] [address] [place] Potassium [Moles/Vol] 4.1 mmol/L Normal 3.7-5.1 [facility] Comment on above: Order Comment: Speci men Type: BLOOD SPECIMEN [facility] Address: [address] [place] [address] Performed By: #### 5 8410-2 #### [facility] IA [id number] [address] [place] [address] [place] Protein [Mass/Vol] 6.8 g/dL Normal 6.3-8.0 [facility] Comment on above: Order Comment: Speci men Type: BLOOD SPECIMEN [facility]ing [facility] Address: [address] [place], [place] [id number] Performed By: #### 5 8410-2 #### [facility] CLIA [id number] [address] [place] [address] [place] Sodium [Moles/Vol] 136 mmol/L Normal 136-144 [facility] Comment on above: Order Comment: Ella rosenberg Type: BLOOD SPECIMEN [facility] Address: [address] [place] [address] Performed By: #### 5 8410-2 #### [facility] CLIA [id number] [address] [place] [address] [place] Urea nitrogen [Mass/Vol] 22 mg/dL Normal 9-24 [facility] Comment on above: Order Comment: Melidai chet Type: BLOOD SPECIMEN [facility] Address: [address] [place] [address] Performed By: #### 5 8410-2 #### [facility] CLIA [id number] [address] [place] [address] [place] PT panel Coag (PPP)on 2024 INR Coag (PPP) [Relative time] 1.3 {INR} Normal 0.9-1.3 [facility] Comment on above: Order Comment: Ella rosenberg Type: BLOOD SPECIMEN [facility] Address: [address] [place] [address] Result Comment: Dorothy min K Antagonist (VKA) Therapeutic Range: INR 2 to 3 (Target INR of 2.5) Note: For patients treated with VKA drugs, such as warfarin, the [place] [employer] 2012 Guideline recommends a therapeutic INR range of 2 to 3 (target INR of 2.5). This recommendation includes high-risk patients with antiphospholipid syndrome with previous arterial or venous thromboembolism, current-generation mechanical or bioprosthetic aortic heart valve replacement. Note: Patients with mechanical aortic valve replacement and additional risk factors for thromboembolic events (atrial fibrillation, previous thromboembolism, LV dysfunction, hypercoagulable conditions) or an older generation mechanical AVR (i.e., ball in-Cage) or any mechanical MVR should have a INR therapeutic range of 2.5 to 3.5 (target INR of 3). Parul GH, et al. Chest 2012, 141:7S-47S Pily GRUBBS, et al. [facility] 2017, 70: 252-289 Performed By: #### 5 8410-2 #### [facility] CLIA [id number] [address] [place] [address] [place] PT Coag (PPP) [Time] 14.1 s High 9.7-13.0 [facility] Comment on above: Order Comment: Speci men Type: BLOOD SPECIMEN [facility] Address: [address] [place] [address] Performed By: #### 5 8410-2 #### [facility] CLIA [id number] [address] [place] [address] [place] US ABD RIGHT UPPER QUADRANTo n 02-13-2025 US ABD RIGHT UPPER QUADRANT * * *Final Report* * * DATE OF EXAM: Feb 13 2025 1:50PM TARA 1032 - US ABD RIGHT UPPER QUADRANT / PROCEDURE REASON: Liver disease * * * * Physician Interpretation * * * * EXAMINATION: RIGHT UPPER QUADRANT ULTRASOUND CLINICAL HISTORY: Liver disease TECHNIQUE: Sonography of the right upper quadrant was performed. Images were obtained and stored in a permanent archive. MQ: URUQ_2 COMPARISON: 08/28/2022 RESULT: Patient imaged in wheelchair/seated upright. Pancreas: Obscured Liver: Portions of the left lobe are obscured. Echotexture: Normal, homogeneous. Echogenicity: Normal Surface contour: Smooth Lesions: Stable subcentimeter echogenic lesion in the right lobe, likely benign. No new lesion. Biliary: No intrahepatic biliary duct dilation. CBD: 0.5 cm at the hilum. Gallbladder: Normal caliber -Contents: Cholelithiasis and sludge present -Wall: Normal -Other: No pericholecystic fluid. Right Kidney: No hydronephrosis. Ascites: None. IMPRESSION: Pancreas and portions of left hepatic lobe are obscured. Unremarkable appearance of the liver, not overtly cirrhotic. No mass. Cholelithiasis. Psychiatric Arnp: LAVINIA Transcribe Date/Time: Feb 13 2025 2:12P Dictated by : MADISON HDEZ MD This examination was interpreted and the report reviewed and electronically signed by: MADISON HDEZ MD on Feb 13 2025 2:16PM EST [id number] Normal [facility] US Abdomen RUQon 02-13-2025 IMPRESSION: Pancreas and portions of left hepatic lobe are obscured. Unremarkable appearance of the liver, not overtly cirrhotic. No mass. Cholelithiasis. Psychiatric Arnp: LAVINIA Transcribe Date/Time: Feb 13 2025 2:12P Dictated by : MADISON HDEZ MD This examination was interpreted and the report reviewed and electronically signed by: MADISON HDEZ MD on Feb 13 2025 2:16PM EST DIVISION OF RADIOLOGY * * *Final Report* * * DATE OF EXAM: Feb 13 2025 1:50PM TARA 1032 - US ABD RIGHT UPPER QUADRANT / PROCEDURE REASON: Liver disease * * * * Physician Interpretation * * * * EXAMINATION: RIGHT UPPER QUADRANT ULTRASOUND CLINICAL HISTORY: Liver disease TECHNIQUE: Sonography of the right upper quadrant was performed. Images were obtained and stored in a permanent archive. MQ: URUQ_2 COMPARISON: 08/28/2022 RESULT: Patient imaged in wheelchair/seated upright. Pancreas: Obscured Liver: Portions of the left lobe are obscured. Echotexture: Normal, homogeneous. Echogenicity: Normal Surface contour: Smooth Lesions: Stable subcentimeter echogenic lesion in the right lobe, likely benign. No new lesion. Biliary: No intrahepatic biliary duct dilation. CBD: 0.5 cm at the hilum. Gallbladder: Normal caliber -Contents: Cholelithiasis and sludge present -Wall: Normal -Other: No pericholecystic fluid. Right Kidney: No hydronephrosis. Ascites: None. DIVISION OF RADIOLOGY Provider, [facility] - 02/13/2025 * * *Final Report* * * DATE OF EXAM: Feb 13 2025 1:50PM TARA 1032 - US ABD RIGHT UPPER QUADRANT / PROCEDURE REASON: Liver disease * * * * Physician Interpretation * * * * EXAMINATION: RIGHT UPPER QUADRANT ULTRASOUND CLINICAL HISTORY: Liver disease TECHNIQUE: Sonography of the right upper quadrant was performed. Images were obtained and stored in a permanent archive. MQ: URUQ_2 COMPARISON: 08/28/2022 RESULT: Patient imaged in wheelchair/seated upright. Pancreas: Obscured Liver: Portions of the left lobe are obscured. Echotexture: Normal, homogeneous. Echogenicity: Normal Surface contour: Smooth Lesions: Stable subcentimeter echogenic lesion in the right lobe, likely benign. No new lesion. Biliary: No intrahepatic biliary duct dilation. CBD: 0.5 cm at the hilum. Gallbladder: Normal caliber -Contents: Cholelithiasis and sludge present -Wall: Normal -Other: No pericholecystic fluid. Right Kidney: No hydronephrosis. Ascites: None. IMPRESSION IMPRESSION: Pancreas and portions of left hepatic lobe are obscured. Unremarkable appearance of the liver, not overtly cirrhotic. No mass. Cholelithiasis. Psychiatric Arnp: LAVINIA Transcribe Date/Time: Feb 13 2025 2:12P Dictated by : MADISON HDEZ MD This examination was interpreted and the report reviewed and electronically signed by: MADISON HDEZ MD on Feb 13 2025 2:16PM EST [facility] Radiology Study observation (narrative) [facility] US Abdomen RUQOrdered By: Brooke lacey Provider on 02-13-2025 [facility] Neurology Visit Reporton Neurology Visit Report [facility] [address], [address] [place] [address] OFFICE VISIT Date of Service: 01/24/25 MR#: [id number] Acct: [id number] Name: STEPH BAUMANN (RICK) Rep #: [id number] : 1950 Provider: Dr. Dwayne iniguez MD Age/Sex: 74/M Location: [facility] [place]. Status: Signed HPI [facility] Chief Complaint: Details: Interim History: Steph returns for follow-up visit. He has a history of hypertension, obstructive sleep apnea, diabetes mellitus, atrial fibrillation, congestive heart failure status post implanted cardioverter- defibrillator, coronary artery disease, hyperlipidemia, chronic renal insufficiency, nonalcoholic steatohepatitis and gastroesophageal reflux. He was somewhat vague with regard to times of onset of his various symptoms. A head CT from 2010 revealed a right frontal parietal mass consistent with a meningioma; this was subsequently resected. He also reported having had a stroke in 2017, however there was evidence of an old right MCA infarct on his head MRI from 2013. His stroke manifested with confusion and gait imbalance and apparently the symptoms improved. He takes Eliquis for atrial fibrillation. No change in his memory has been noted within recent months. He has not had recent symptoms suggestive of recurrent cerebrovascular ischemia. In 2021, he was diagnosed with prostate cancer. He has had radiation therapy (between January 2022 and March 2022) and hormonal therapy and has had a positive response to these treatments. He stated the cancer was nonmetastatic and following treatment was no longer detectable. He had a fall in February 2022 and sustained a right hip fracture for which he underwent right total hip replacement in February 2022. Since his fall and surgery, he has had persistent right hip pain and this has limited his mobility. He has had gait difficulty since 2020 and has had left lower extremity weakness since at least December 2021. He denied having swallowing difficulty, speech difficulty, headache, vision change, numbness, pain in the lower extremities (apart from right hip pain), neck pain and low back pain. He denied having weakness in the upper extremities and right lower extremity. He has difficulty raising the left leg and dorsiflexing the left foot. He has had a bilateral hand tremor since childhood. He has had physical therapy and had exhibited some improvement of his lower extremity motor function and gait in 2021 though subsequently his gait worsened. He has been able to stand and take 1 or 2 steps with assistance. He is prescribed tramadol for his right hip pain. He has had physical therapy and this was of some benefit. 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 He has a several year history of urinary incontinence. He reported that he was treated with levetiracetam and topiramate for a period of time following his meningioma resection however he stated that he has never had a seizure and levetiracetam and topiramate were subsequently discontinued. He used cocaine in the past; his last use was around 2016. He used marijuana in the past; his last use was around 2006. There is no history of alcohol abuse. He has had 3 years of college education. Mini-Mental status exam score was 27/30 on 05/24/2022. Baclofen has been of some benefit in reducing his left-sided hypertonia (that was noted on initial evaluation to affect the left arm and left leg). He has peripheral arterial disease. He denied having calf claudication symptoms. A thyroid nodule was noted on his carotid ultrasound. A thyroid ultrasound revealed a large complex mass in the mid right thyroid and multiple small left thyroid cysts. The patient's reported this was evaluated by another physician and no further evaluation was needed. EMG/nerve conduction studies of the lower extremities reveal a sensorimotor polyneuropathy. Trazodone caused anxiety. His insomnia has since subsided. He previously has episodes of crying without clear cause. He is taking sertraline and has improvement of has facial expression according to his and no longer has crying episodes. He is taking carbidopa/levodopa 25/100 2 tablets 3 times daily and this was of some benefit for his rigidity. Physical Exam: Neuro: The patient is awake; he is bradyphrenic; he is not oriented to day of the week; he is not oriented to year; a moderate bilateral hand resting tremor is noted; rigidity is noted in the wrists Neck: No bruits Heart: irregularly irregular Supplemental Info Head CT (06/16/2011): FINDINGS: There is a 4.6 cm x 5.4 cm hyperdense rounded mass overlying the right frontal parietal lobes. This abuts the bony surface, where there is a focal area of hyperostosis. This is suggestive of a large meningioma. This causes shift of the midline towards the left side. There is a 5.2 mm shift from right to left. There is no evidence of hydrocephalus. Normal basal (more content not included)... Normal [facility] Ammoniaon 01-18-2025 Ammonia (P) [Mass/Vol] ug/dL Low [facility] Comment on above: Order Comment: 302.1 Performed By: #### L 503.5510 #### [facility] [address] [place], [address] Venous blood ammonia measure mentOrdered By: Elisa Narvaez on 01-18-2025 Ammonia < 10.0 umol/L Low [facility] Venous blood ammonia measurement < 10.0 umol/L [facility] Ammoniaon 12-21-2024 Ammonia (P) [Moles/Vol] 22.0 umol/L Normal [facility] Comment on above: Order Comment: 302 Performed By: #### L 503.5510 #### [facility] [address] [place], [address] Venous blood ammonia measure mentOrdered By: Elisa Narvaez on 12-21-2024 Ammonia (P) [Moles/Vol] 22.0 umol/L [address] [place] [address] Cardiology Visit Reporton Cardiology Visit Report [facility] [address] [place] [address] OFFICE VISIT Date of Service: 12/12/24 MR#: [id number] Acct: [id number] Name: STEPH BAUMANN Rep #: [id number] : 1950 Provider: LON Solomon Age/Sex: 74/M Location[place] [facility] [place] Status: Signed HPI HPI History of Present Illness Details: Steph Baumann is a 73-year-old gentleman that presents here today for a cardiovascular follow- up. He has a history of nonischemic cardiomyopathy with a known ejection fraction of 20 to 25% with a placement of a BiV ICD. He did undergo a cardioversion in February 2020 for atrial tachyarrhythmia. He also has a history of hypertension, atrial flutter, pulmonary hypertension, decompensated cirrhosis with ascites. 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 Loredo- [facility]). He has also been diagnosed with prostate cancer and follows with the radiation oncologist here and is on bicalutamide. His last echocardiogram was in November 2020 demonstrating an ejection fraction of 20% with a moderately dilated LV, global hypokinesis and pulmonary systolic pressure of 50 mmHg. He is currently domiciled at [facility] and has been doing quite well. His biggest issue is his hip pain. He has been referred to pain management. Intake Vital Signs 03/28/24 11:38 06/19/24 14:43 12/12/24 11:11 Height 5 ft 9 in 5 ft 9 in 5 ft 9 in Weight: 166 lb BMI 24.5 BP 119/66 Blood Pressure Location Rt brachial Position Sitting Respiration 18 Pulse 69 Pulse Source Monitor Pulse Oximetry (%) 98 Intake Visit Reasons: 9 M FU Supervisor Lump Room Required: No Is patient in pain?: No Allergies acetaminophen Adverse Reaction (Verified 12/12/24 11:12) Other oxycodone Adverse Reaction (Verified 12/12/24 11:12) hallucinations Medications ???Medication ???Instructions ???Recorded ???Confirmed ???Type bicalutamide 50 mg tablet (Casodex) 50 mg PO DAILY prostate 2 12/12/24 History multivitamin 1 tab PO DAILY supplement 02/19/22 12/12/24 History apixaban 5 mg tablet (Eliquis) 5 mg PO BID blood thinner 04/13/23 12/12/24 History carvedilol 3.125 mg tablet 3.125 mg PO BID HEART 04/13/2303/31 History dextrose 40 % oral gel (Glucose 15 g PO Q15M PRN Hypoglycemia 04/0712/12/24 History Gel) acetazolamide 250 mg tablet 250 mg PO BID 06/08/23 12/12/24 Hi story docusate sodium 100 mg capsule 100 mg PO BID CONSTIPATION 3 12/12/24 History bisacodyl 10 mg rectal suppository 10 mg MA DAILY PRN constipation 06/21/23 06/19/24 History sennosides 8.6 mg tablet (senna) 17.2 mg PO QHS CONSTIPATION 06/19/24 History cholecalciferol (vitamin D3) 50 50 mcg PO DAILY 10/06/23 12/12/24 History mcg (2,000 unit) capsule lisinopril 5 mg tablet 5 mg PO DAILY 10/06/23 12/12/24 Hi story tramadol 50 mg tablet 50 mg PO Q8H PRN LOWER BACK PAIN 1 12/14/22 06/19/24 History sertraline 50 mg tablet 50 mg PO DAILY #30 tabs 10/18/23 0 06/19/24 Rx aluminum-magnesium hydroxide 225 30 ml PO Q4H PRN 06/19/24 06/19/24 History mg-200 mg/5 mL oral suspension baclofen 20 mg tablet 10 mg PO TID muscle pain/spasm 12/12/24 History bumetanide 2 mg tablet 1 mg PO DAILY leg swelling 4 12/12/24 History carbidopa 25 mg-levodopa 100 mg 2 tab PO TID PARKINSONS 06/19/24 0 12/12/24 History tablet exenatide microspheres 2 mg/0.85 2 mg subcut QWEEK 06/19/24 5 History mL subcutaneous auto-injector (Byduredarian BCi) guaifenesin 100 mg/5 mL oral liquid 200 mg PO Q4H PRN 06/19/2403/31 History insulin glargine 100 unit/mL (3 8 unit subcut DAILY DIABETES 06/1912/12/24 History mL) subcutaneous pen lactulose 20 gram/30 mL oral 30 g PO TID 06/19/24 12/12/24 Hist ory solution methyl salicylate 15 %-menthol 10 1 applic topical DAILY 06/19/24 0 12/12/24 History % topical cream (Muscle Rub) mineral oil (Fleet Mineral Oil 118 ml MA DAILY PRN 06/19/2412/12 History enema) ondansetron HCl 4 mg tablet 4 mg PO Q8H 06/19/24 12/12/24 Hist ory Have you fallen in the past year?: No PFSH Medical History Right hip pain Chronic kidney disease (CKD), stage III (moderate) Anxiety Kidney stones Kidney disease Cardiac cirrhosis ICD (implantable cardioverter-defibrillator ) in place Pacemaker Congestive heart failure (CHF) Myocardial infarct Hypertension Seizures Parkinson's disease Adult failure to thrive Weakness Parkinson's disease Acute heart failure with reduced ejection fraction and diastolic dysfunction Acute and chronic respiratory failure with hypoxia Debility Chronic kidney disease (CKD) Wears glasses Thyroid disease Insulin dependen (more content not included)... Normal [facility] Prostate specific Ag [Mass/Vol] ng/mL Normal <2.60 [facility] Comment on above: Order Comment: Speci men Type: BLOOD SPECIMEN [facility] Address: [address] [place] [address] [place] [address] Result Comment: Tota l PSA test methodology used is the Electrochemiluminescence Immunoassay by [employer]. Total PSA values by differing methodologies cannot be interchanged. Performed By: #### 2 857-1 #### [facility] CLIA [id number] [address] [place] [address] [place] Ammoniaon 11-23-2024 Ammonia (P) [Moles/Vol] 28.0 umol/L Normal [address] [place] [address] Comment on above: Order Comment: 302.1 Performed By: #### L 503.5510 #### [facility] [address] [place], [place], [id number] Venous blood ammonia measure mentOrdered By: Elisa Narvaez on 11-23-2024 Ammonia (P) [Moles/Vol] 28.0 umol/L [address] [place] [address] Ammoniaon 10-26-2024 Ammonia (P) [Moles/Vol] 17.0 umol/L Normal [address] Comment on above: Order Comment: 302 Performed By: #### L 503.5510 #### [facility] [address] [place], [address] Venous blood ammonia measure mentOrdered By: Elisa Narvaez on 10-26-2024 Ammonia (P) [Moles/Vol] 17.0 umol/L [address] [place] [address] CNPNon 10-22-2024 [facility] Telephone (GASTA5) -- STEPH BAUMANN ([id number]) 1950 M Date Time Provider Department 10/22/24 MERLIN LOREDO GASTA5 During your visit today, we recorded the following information about you: Luz Elena Snell 10/22/2024 1:[address] new lab orders, 1/25 Luz Elena Snell Commercial Property Manager Mayra Hinton RN 10/22/2024 1:47 PM Signed Orders pended with later expiry date Mayra Benton RN October 22, 2024 1:47 PM Mayra Benton RN 10/22/2024 1:47 PM Signed Addended by: MAYRA BENTON on: 10/22/2024 01:47 PM Modules accepted: Orders Mayra Benton RN 10/23/2024 2:02 PM Signed Addended by: MAYRA BENTON on: 10/23/2024 02:02 PM Modules accepted: Mayra Hines RN 11/13/2024 4:21 PM Signed Addended by: MAYRA BENTON on: 11/13/2024 04:21 PM Modules accepted: Orders Merlin Loredo MD 11/14/2024 12:34 PM Signed Addended by: MERLIN LOREDO on: 11/14/2024 12:34 PM Modules accepted: Orders Mayra Benton RN 11/14/2024 1:14 PM Signed Nurse attempted to call pt. Detailed message left w/ update, call back number, and scheduling info for labs and LIVUS to be done prior to 02/13 appt Mayra Benton RN November 14, 2024 1:14 PM Allergies As of Date: 10/22/2024 Noted Allergy Reaction METFORMIN 12/12/2020 6 - Diarrhea Comments: Even low dose caused diarrhea OXYCODONE-ACETAMINOPHEN 09/08/2023 16 - Unknown Date Reviewed: 09/05/2024 Reviewed by: Balta Anna - Fully Assessed Reason for Visit: Orders [681] Cmt: New lab orders for February appt Primary Visit Diagnosis:Liver disease [K76.9] Other Visit Diagnoses:Alcoholic liver disease (HCC) [K70.9] Cirrhosis of liver with ascites, unspecified hepatic cirrhosis type (HCC) (HCC) [K74.60, R18.8] Order(s):COMPLETE BLOOD COUNT AND DIFFERENTIAL [SQCBCDIF] Order #: [id number] FUTURE COMPREHENSIVE METABOLIC PANEL [SQCMP] Order #: [id number] FUTURE PROTHROMBIN TIME [SQPT] Order #: [id number] FUTURE Prescriptions as of 11/14/2024 - BYDUREON BCISE 2 mg/0.85 mL injection Inject 2 mg subcutaneously one time a week. - diclofenac (VOLTAREN ARTHRITIS PAIN) 1 % topical gel Apply one application to right hip topically every 12 hours as needed for pain. - denosumab (PROLIA) 60 mg/mL Injection to be administered once every 6 months - lactulose 20 gram/30 mL solution Take 45 mL by mouth three times a day. - lisinopril (ZESTRIL) 5 mg tablet Take 5 mg by mouth once daily. - insulin aspart U-100 (NOVOLOG) 100 unit/mL Inject subcutaneously three times a day before meals. Uses sliding scale - aluminum-magnesium hydroxide-simethicone (MAALOX,MYLANTA,MAG-AL PLUS) 200-200-20 mg/5 mL suspension Take 30 mL by mouth every 4 hours as needed. - bisacodyl (DULCOLAX) 10 mg supp 10 mg by RECTAL route once daily as needed for constipation. - sodium phosphate,mono-dibasic (FLEET ENEMA RECTAL) 1 Enema by RECTAL route as needed. - dextrose (GLUCOSE GEL ORAL) Take 1 Dose by mouth as needed. - GUAIFENESIN ORAL Take 10 mL by mouth every 4 hours as needed. - magnesium hydroxide (MILK OF MAGNESIA ORAL) Take 30 mL by mouth as needed. - methyl salicylate-menthol (MUSCLE RUB) 15-10 % topical cream Apply to right hip topically in the morning for pain. - potassium chloride ER (KLOR-CON) 20 mEq tablet Take 20 mEq by mouth once daily. - cholecalciferol (VITAMIN D-3) 50 mcg (2,000 unit) tablet Take 2,000 Units by mouth once daily. - sertraline (ZOLOFT) 50 mg tablet Take 50 mg by mouth once daily. - acetaZOLAMIDE (DIAMOX) 250 mg tablet Take 250 mg by mouth two times a day. - docusate sodium (COLACE) 100 mg capsule Take 100 mg by mouth two times a day. - pantoprazole DR (PROTONIX) 40 mg tablet Take 40 mg by mouth two times a day. - dulaglutide (TRULICITY) 3 mg/0.5 mL pen injector Inject 3 mg subcutaneously one time a week. Tuesday - GLUCAGON EMERGENCY KIT, HUMAN, INJECTION Inject 1 mL subcutaneously as needed. - Sennosides 8.6 mg cap Take 17.2 mg by mouth daily at bedtime. - INSULIN LISPRO SUBCUTANEOUS Inject subcutaneously. Per sliding scale - traMADol (ULTRAM) 50 mg tablet Take 50 mg by mouth every 6 hours as needed for pain. - carvedilol (COREG) 3.125 mg tablet Take 1 tablet by mouth twice daily. - ondansetron orally disintegrating (ZOFRAN ODT) 4 mg disintegrating tablet Take 1 tablet by mouth every 8 hours as needed for nausea/vomiting. - baclofen (LIORESAL) 20 mg tablet Take 20 mg by mouth three times a day. - apixaban (ELIQUIS) 5 mg tab(s) Take 1 tablet by mouth twice daily. - bumetanide (BUMEX) 1 mg tablet Take 1 tablet by mouth once daily. - insulin glargine (BASAGLAR KWIKPEN U-100 INSULIN) 100 unit/mL (3 mL) Inject 27 Units subcutaneously daily at bedtime. Adjust dose as directed - carbidopa-levodopa (SINEMET 25-100) 25-100 mg per tablet Take 2 tablets by mouth three times a day. - l (more content not included)... Normal [facility] Hemoglobin A1con 10-22-2024 HbA1c (Bld) [Mass fraction] 6.3 % High 3.8-5.6 [facility] Comment on above: Order Comment: 302.1 Result Comment: Norm al < 5.7 % Prediabetic 5.7 - 6.4 % Diabetic >or= 6.5 % Please note range changes. Performed By: #### L 503.5543 #### [facility] [address] [place], [address] Hemoglobin A1c percentageOrd ered By: Elisa Narvaez on 10-22-2024 HbA1c (Bld) [Mass fraction] 6.3 % High 3.8-5.6 [facility] Comment on above: Normal < 5.7 % Predi abetic 5.7 - 6.4 % Diabetic >or= 6.5 % Please note range changes. Ammoniaon 09-28-2024 Ammonia (P) [Moles/Vol] 24.0 umol/L Normal [facility] Comment on above: Order Comment: 302.1 Performed By: #### L 503.5510 #### [facility] [address] [place], [address] CBC W/Diff, Automatedon 11-0 4-2023 Absolute Lymph 0.51 X10 3/uL Low 0.83-4.51 [facility] Comment on above: Performed By: #### L 500.4050, L300.3900, L100.0100 #### [facility] [address] [place], [address] Absolute Neut 4.8 X10 3/uL Normal 2.0-7.7 [facility] Comment on above: Performed By: #### L 500.4050, L300.3900, L100.0100 #### [facility] [address] [place], [address] Basophils/100 WBC (Bld) 0.5 % Normal 0-1 [facility] Comment on above: Performed By: #### L 500.4050, L300.3900, L100.0100 #### [facility] [address] [place], [address] Eosinophils/100 WBC (Bld) 5.3 % High 0-5 [facility] Comment on above: Performed By: #### L 500.4050, L300.3900, L100.0100 #### [facility] [address] [place], [address] Erythrocyte distribution width (RBC) [Ratio] 14.5 % Normal 11.6-14.6 [facility] Comment on above: Performed By: #### L 500.4050, L300.3900, L100.0100 #### [facility] [address] [place], [address] Hematocrit (Bld) [Volume fraction] 39.6 % Low 40-54 [facility] Comment on above: Performed By: #### L 500.4050, L300.3900, L100.0100 #### [facility] [address] [place], [address] Hemoglobin (Bld) [Mass/Vol] 12.3 g/dL Low 13.0-16.5 [facility] Comment on above: Performed By: #### L 500.4050, L300.3900, L100.0100 #### [facility] [address] [place], [address] IG% 1.500 High 0.0-0.9 [facility] Comment on above: Result Comment: IG% - Immature Granulocytes (promyelocytes, myelocytes and metamyelocytes) > 1% indicates that a LEFT SHIFT is Present. Performed By: #### L 500.4050, L300.3900, L100.0100 #### [facility] [address] [place], [address] Lymphocytes/100 WBC (Bld) 8.2 % Low 19-41 [facility] Comment on above: Performed By: #### L 500.4050, L300.3900, L100.0100 #### [facility] [address] [place], [address] MCH (RBC) [Entitic mass] 31.5 pg Normal 27.0-32.0 [facility] Comment on above: Performed By: #### L 500.4050, L300.3900, L100.0100 #### [facility] [address] [place], [address] MCHC (RBC) [Mass/Vol] 31.1 g/dL Low 32-36 [facility] Comment on above: Performed By: #### L 500.4050, L300.3900, L100.0100 #### [facility] [address] [place], [address] MCV (RBC) [Entitic vol] 101.3 fL High 80-94 [facility] Comment on above: Performed By: #### L 500.4050, L300.3900, L100.0100 #### [facility] [address] [place], [address] Monocytes/100 WBC (Bld) 6.8 % Normal 0-10 [facility] Comment on above: Performed By: #### L 500.4050, L300.3900, L100.0100 #### [facility] [address] [place], [address] Neutrophils/100 WBC (Bld) 77.7 % High 47-70 [facility] Comment on above: Performed By: #### L 500.4050, L300.3900, L100.0100 #### [facility] [address] [place], [address] Nucleated RBC (Bld) [#/Vol] 0 10*3/uL Normal 0-5 [facility] Comment on above: Performed By: #### L 500.4050, L300.3900, L100.0100 #### [facility] [address] [place], [address] Platelet mean volume (Bld) [Entitic vol] 11.0 fL Normal 6.2-12.0 [facility] Comment on above: Performed By: #### L 500.4050, L300.3900, L100.0100 #### [facility] [address] [place], [address] Platelets (Bld) [#/Vol] 135 10*3/uL Low 150-450 [facility] Comment on above: Performed By: #### L 500.4050, L300.3900, L100.0100 #### [facility] [address] [place], [address] RBC (Bld) [#/Vol] 3.91 10*6/uL Low 4.6-6.2 [facility] Comment on above: Performed By: #### L 500.4050, L300.3900, L100.0100 #### [facility] [address] [place], [address] RDW SD 54.4 fl High 35.1-43.9 [facility] Comment on above: Performed By: #### L 500.4050, L300.3900, L100.0100 #### [facility] [address] [place], [address] WBC (Bld) [#/Vol] 6.2 10*3/uL Normal 4.4-11.0 [facility] Comment on above: Performed By: #### L 500.4050, L300.3900, L100.0100 #### [facility] [address] [place], [address] Comprehensive Metabolic [facility] 09-10-2024 Albumin [Mass/Vol] 3.3 g/dL Normal 3.2-5.0 [facility] Comment on above: Performed By: #### L 500.4050, L300.3900, L100.0100 #### [facility] [address] [place], [address] Albumin/Globulin [Mass ratio] 1.0 {ratio} Normal 0.9-2.4 [facility] Comment on above: Performed By: #### L 500.4050, L300.3900, L100.0100 #### [facility] [address] [place], [address] ALK P 57 U/L Normal 45-117 [facility] Comment on above: Performed By: #### L 500.4050, L300.3900, L100.0100 #### [facility] [address] [place], [address] ALT [Catalytic activity/Vol] 12 U/L Low 16-61 [facility] Comment on above: Performed By: #### L 500.4050, L300.3900, L100.0100 #### [facility] [address] [place], [address] AST [Catalytic activity/Vol] 9 U/L Low 15-37 [facility] Comment on above: Performed By: #### L 500.4050, L300.3900, L100.0100 #### [facility] [address] [place], [address] Bilirubin [Mass/Vol] 0.40 mg/dL Normal 0.20-1.00 [facility] Comment on above: Result Comment: For patients on eltrombopag therapy, use of Dimension [place] TBIL is not recommended. Performed By: #### L 500.4050, L300.3900, L100.0100 #### [facility] [address] [place], [address] BUN/CRE 32.0 RATIO High 10-20 [facility] Comment on above: Performed By: #### L 500.4050, L300.3900, L100.0100 #### [facility] [address] [place], [address] CA,Total 8.4 mg/dL Low 8.5-10.1 [facility] Comment on above: Performed By: #### L 500.4050, L300.3900, L100.0100 #### [facility] [address] [place], [address] Chloride [Moles/Vol] 113 mmol/L High 98-107 [facility] Comment on above: Performed By: #### L 500.4050, L300.3900, L100.0100 #### [facility] [address] [place], [address] CO2 [Moles/Vol] 22.0 mmol/L Normal 21.0-32.0 [facility] Comment on above: Performed By: #### L 500.4050, L300.3900, L100.0100 #### [facility] [address] [place], [address] Creatinine [Mass/Vol] 0.94 mg/dL Normal 0.70-1.30 [facility] Comment on above: Result Comment: The validity of the calculated GFR GFRAA in patients over 70 years has not been determined. Clinical correlation is essential. Performed By: #### L 500.4050, L300.3900, L100.0100 #### [facility] [address] [place], [address] EST GFR - AA 102 mL/min Normal >60 [facility] Comment on above: Result Comment: Afri can [place]og[place]ese GFR Calc Performed By: #### L 500.4050, L300.3900, L100.0100 #### [facility] [address] [place], [address] GAP 5 Normal 5-15 [facility] Comment on above: Performed By: #### L 500.4050, L300.3900, L100.0100 #### [facility] [address] [place], [address] GFR/1.73 sq M.predicted among non-blacks MDRD (S/P/Bld) [Vol rate/Area] 84 mL/min/{1.73_m2} Normal >60 [facility] Comment on above: Result Comment: Non- GFR Calc Performed By: #### L 500.4050, L300.3900, L100.0100 #### [facility] [address] [place], [address] Globulin (S) [Mass/Vol] 3.4 g/dL Normal 2.2-4.2 [facility] Comment on above: Performed By: #### L 500.4050, L300.3900, L100.0100 #### [facility] [address] [place], [address] Glucose [Mass/Vol] 113 mg/dL High 74-106 [facility] Comment on above: Result Comment: Fast ing Glucose result from 100 to 125 mg/dL suggests IMPAIRED HOMEOSTASIS per A.D.A. criteria. Performed By: #### L 500.4050, L300.3900, L100.0100 #### [facility] [address] [place], [address] Potassium [Moles/Vol] 4.0 mmol/L Normal 3.5-5.1 [facility] Comment on above: Performed By: #### L 500.4050, L300.3900, L100.0100 #### [facility] [address] [place], [address] Sodium [Moles/Vol] 140 mmol/L Normal 136-145 [facility] Comment on above: Performed By: #### L 500.4050, L300.3900, L100.0100 #### [facility] [address] [place], [address] T PROT 6.7 g/dL Normal 6.4-8.2 [facility] Comment on above: Performed By: #### L 500.4050, L300.3900, L100.0100 #### [facility] [address] [place], [address] Urea nitrogen [Mass/Vol] 30 mg/dL High 7-18 [facility] Comment on above: Performed By: #### L 500.4050, L300.3900, L100.0100 #### [facility] [address] [place], [address] Prothrombin Time w/INRon INR Coag (PPP) [Relative time] 1.5 {INR} Normal [facility] Comment on above: Performed By: #### L 500.4050, L300.3900, L100.0100 #### [facility] [address] [place], [address] PT Coag (PPP) [Time] 18.4 s High 11.7-14.9 [facility] Comment on above: Performed By: #### L 500.4050, L300.3900, L100.0100 #### [facility] [address] [place], [address] CNOVSPon 09-05-2024 CNOVSP Visit (SP) Office ( [facility]) -- STEPH BAUMANN ([id number]) 1950 M Date Time Provider Department 09/05/24 11:30 AM BALTA ANNA During your visit today, we recorded the following information about you: Temperature Pulse Blood pressure 97.3 degrees 64/minute 91/67 Balta Anna 09/07/2024 2:58 PM Signed Steph Baumann 1950 Oncologic problem(s): 1) Castrate sensitive prostate cancer. HPI: The patient is a 73-year-old male [...] 10/21/2022 and again on 01/27/2023 and 09/13/2023. Per initial office consultation: Insurance no longer covers Dr. Saravia. Seen by Rustam Masterson PA-C. Referred here. Most recent injection was about 4 months ago. On bicalutamide. No diarrhea. On lactulose BID for cirrhosis. Here today with POA from [place] (daughter's friend). Visits him every 2 weeks. Diagnosed with Parkinsons in April. Requires wheelchair. Was independent prior to that. Living at [facility]. Recently started having dysuria "deep in" when starts urinating. No gross hematuria. Start[place] antibiotic [place]. Only pain is right hip and low back if sits too long. Right hip pain has been evaluated by his orthopedic several times as well as the low back pain. No clear etiology. Presents for ongoing oncologic management. Interim history: He is tolerating ADT well. Denies hot flashes. His only complaint continues to be of right hip pain. 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 He was evaluated by his orthopedic surgeon. Hardware seems to be in good position. Received injections in area which helped for a few weeks. Not a surgical candidate for repeat hip surgery. Cannot participate in PT because of the pain. Denies changes in bowel or bladder habits. No bleeding. PSA remains undetectable. 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 Warfarin since. Cardiomyopathy, unspecified (HCC) Chronic combined systolic and diastolic congestive heart failure (HCC) Chronic kidney disease, stage 3b (HCC) Chronic respiratory failure with h (more content not included)... Normal [facility] PSA SerPl-mCncon 09-05-2024 Prostate specific Ag [Mass/Vol] ng/mL Normal <2.60 [facility] Comment on above: Order Comment: Speci men Type: BLOOD SPECIMENOrdering Facility: [facility] Address: [address] [place] [address] Result Comment: Tota saray PSA test methodology used is the Electrochemiluminescence Immunoassay by [employer]. Total PSA values by differing methodologies cannot be interchanged. Performed By: #### 2 857-1 ####[facility] [id number] [facility] [id number] [place] [address] [place] Ammoniaon 08-31-2024 Ammonia (P) [Moles/Vol] 32.0 umol/L Normal [facility] Comment on above: Order Comment: 302-1 Performed By: #### L 503.5552 #### [facility] [address] [place], [address] CBC panel Auto (Bld)on 08-28 Erythrocyte distribution width (RBC) [Ratio] 15.7 % High 11.5-15.0 [facility] Comment on above: Order Comment: Speci men Type: BLOOD SPECIMEN [facility] Address: [address] [place] [address] Performed By: #### 5 8410-2 #### [facility] CLIA [id number] [address] [place] [address] [place] Hematocrit (Bld) [Volume fraction] 39.1 % Normal 39.0-51.0 [facility] Comment on above: Order Comment: Speci men Type: BLOOD SPECIMEN [facility] Address: [address] [place] [address] Performed By: #### 5 8410-2 #### [facility] CLIA [id number] [address] [place] [address] [place] Hemoglobin (Bld) [Mass/Vol] 12.2 g/dL Low 13.0-17.0 [facility] Comment on above: Order Comment: Speci men Type: BLOOD SPECIMEN [facility] Address: [address] [place] [address] Performed By: #### 5 8410-2 #### [facility] CLIA [id number] [address] [place] [address] [place] MCH (RBC) [Entitic mass] 32.4 pg Normal 26.0-34.0 [facility] Comment on above: Order Comment: Speci men Type: BLOOD SPECIMEN [facility] Address: [address] [place] [address] Performed By: #### 5 8410-2 #### [facility] CLIA [id number] [address] [place] [address] [place] MCHC (RBC) [Mass/Vol] 31.2 g/dL Normal 30.5-36.0 [facility] Comment on above: Order Comment: Speci men Type: BLOOD SPECIMEN [facility] Address: [address] [place] [address] Performed By: #### 5 8410-2 #### [facility] CLIA [id number] [address] [place] [address] [place] MCV (RBC) [Entitic vol] 103.7 fL High 80.0-100.0 [facility] Comment on above: Order Comment: Speci men Type: BLOOD SPECIMEN [facility] Address: [address] [place] [address] Performed By: #### 5 8410-2 #### [facility] CLIA [id number] [address] [place] [address] [place] Nucleated RBC (Bld) [#/Vol] 10*3/uL Normal <0.01 [facility] Comment on above: Order Comment: Speci men Type: BLOOD SPECIMEN [facility] Address: [address] [place] [address] Performed By: #### 5 8410-2 #### [facility] CLIA [id number] [address] [place] [address] [place] Platelet mean volume (Bld) [Entitic vol] 11.1 fL Normal 9.0-12.7 [facility] Comment on above: Order Comment: Speci men Type: BLOOD SPECIMEN [facility] Facility[facility] Address: [address] [place] [address] Performed By: #### 5 8410-2 #### [facility] CLIA [id number] [address] [place] [address] [place] Platelets (Bld) [#/Vol] 127 10*3/uL Low 150-400 [facility] Comment on above: Order Comment: Speci men Type: BLOOD SPECIMEN [facility]ing Facility[facility] Address: [address] [place] [address] Performed By: #### 5 8410-2 #### [facility] CLIA [id number] [address] [place] [address] [place] RBC (Bld) [#/Vol] 3.77 10*6/uL Low 4.20-6.00 [facility] Comment on above: Order Comment: Speci men Type: BLOOD SPECIMEN [facility] Address: [address] [place] [address] Performed By: #### 5 8410-2 #### [facility] CLIA [id number] [address] [place] [address] [place] WBC (Bld) [#/Vol] 6.35 10*3/uL Normal 3.70-11.00 [facility] Comment on above: Order Comment: Speci men Type: BLOOD SPECIMEN [facility] Address: [address] [place] [address] Performed By: #### 5 8410-2 #### [facility] CLIA [id number] [address] [place] [address] OF [place] CNOVon 08-28-2024 CNOV Office Visit (GASTA5 ) -- STEPH BAUMANN ([id number]) 1950 M Date Time Provider Department 08/28/24 2:40 PM MERLIN LOREDO GASTA5 During your visit today, we recorded the following information about you: Temperature Pulse Blood pressure Weight 97.7 degrees 69/minute 107/57 78 kg Height 1.753 m Merlin Loredo MD 08/28/2024 4:11 PM Addendum Follow up 74 year old with fairly advanced Parkinson's wheel chair bound resides in [place] Last visit March 2024 when I concluded: Impression: Stable cirrhosis Rec: continue same program; no lactulose unless Bob notices AMS Interval US today IMPRESSION: Cirrhotic liver morphology. No suspicious lesions. Cholelithiasis. Fibiorscan today E (kpa): 7.1 down from 31 in 2019!!! CAP: 277 EGD this month small EV reported. I see none. Latest Ref Rng 08/28/2024 Protein, Total 6.3 - 8.0 g/dL 7.2 Albumin 3.9 - 4.9 g/dL 4.1 Calcium 8.5 - 10.2 mg/dL 8.9 Bilirubin, Total 0.2 - 1.3 mg/dL 0.5 Alkaline Phosphatase 38 - 113 U/L 68 AST 14 - 40 U/L 12 (L) ALT 10 - 54 U/L <5 (L) Glucose 74 - 99 mg/dL 111 (H) BUN 9 - 24 mg/dL 17 Creatinine 0.73 - 1.22 mg/dL 0.92 Sodium 136 - 144 mmol/L 139 Potassium 3.7 - 5.1 mmol/L 4.6 Chloride 98 - 107 mmol/L 111 (H) CO2 22 - 30 mmol/L 17 (L) Anion Gap 8 - 15 mmol/L 11 eGFR >=60 mL/min/1.73m? 88 PT Sec 9.7 - 13.0 sec 13.2 (H) PT INR 0.9 - 1.3 1.3 Legend: (L) Low (H) High Platelet 127 He is on lactulose for ammonia elevations. However 5 determinations from April - July have all been normal Current Outpatient Medications Medication Sig denosumab (PROLIA) 60 mg/mL Injection to be administered once every 6 months lactulose 20 gram/30 mL solution Take 45 mL by mouth three times a day. lisinopril (ZESTRIL) 5 mg tablet Take 5 mg by mouth once daily. insulin aspart U-100 (NOVOLOG) 100 unit/mL Inject subcutaneously three times a day before meals. Uses sliding scale aluminum-magnesium hydroxide-simethicone (MAALOX,MYLANTA,MAG-AL PLUS) 200-200-20 mg/5 mL suspension Take 30 mL by mouth every 4 hours as needed. bisacodyl (DULCOLAX) 10 mg supp 10 mg by RECTAL route once daily as needed for constipation. sodium phosphate,mono-dibasic (FLEET ENEMA RECTAL) 1 Enema by RECTAL route as needed. dextrose (GLUCOSE GEL ORAL) Take 1 Dose by mouth as needed. GUAIFENESIN ORAL Take 10 mL by mouth every 4 hours as needed. magnesium hydroxide (MILK OF MAGNESIA ORAL) Take 30 mL by mouth as needed. methyl salicylate-menthol (MUSCLE RUB) 15-10 % topical cream Apply to right hip topically in the morning for pain. potassium chloride ER (KLOR-CON) 20 mEq tablet Take 20 mEq by mouth once daily. cholecalciferol (VITAMIN D-3) 50 mcg (2,000 unit) tablet Take 2,000 Units by mouth once daily. sertraline (ZOLOFT) 50 mg tablet Take 50 mg by mouth once daily. acetaZOLAMIDE (DIAMOX) 250 mg tablet Take 250 mg by mouth two times a day. docusate sodium (COLACE) 100 mg capsule Take 100 mg by mouth two times a day. pantoprazole DR (PROTONIX) 40 mg tablet Take 40 mg by mouth two times a day. dulaglutide (TRULICITY) 3 mg/0.5 mL pen injector Inject 3 mg subcutaneously one time a week. Tuesday GLUCAGON EMERGENCY KIT, HUMAN, INJECTION Inject 1 mL subcutaneously as needed. Sennosides 8.6 mg cap Take 17.2 mg by mouth daily at bedtime. INSULIN LISPRO SUBCUTANEOUS Inject subcutaneously. Per sliding scale traMADol (ULTRAM) 50 mg tablet Take 50 mg by mouth every 8 hours as needed for pain. Take one tablet by mouth every eight hours as needed for pain carvedilol (COREG) 3.125 mg tablet Take 1 tablet by mouth twice daily. ondansetron orally disintegrating (ZOFRAN ODT) 4 mg disintegrating tablet Take 1 tablet by mouth every 8 hours as needed for nausea/vomiting. baclofen (LIORESAL) 20 mg tablet Take 20 mg by mouth three times a day. apixaban (ELIQUIS) 5 mg tab(s) Take 1 tablet by mouth twice daily. bumetanide (BUMEX) 1 mg tablet Take 1 tablet by mouth once daily. insulin glargine (BASAGLAR KWIKPEN U-100 INSULIN) 100 unit/mL (3 mL) Inject 27 Units subcutaneously daily at bedtime. Adjust dose as directed (Patient taking differently: Inject 27 Units subcutaneously daily at bedtime. Adjust dose as directed) carbidopa-levodopa (SINEMET 25-100) 25-100 mg per tablet Take 2 tablets by mouth three times a day. loratadine (CLARITIN) 10 mg tablet Take 1 tablet by mouth once daily as needed. fluticasone-vilanterol (BREO ELLIPTA) 100-25 mcg/dose inhaler Inhale 1 Inhalation as instructed once daily. bicalutamide (CASODEX) 50 mg tablet Take 50 mg by mouth once daily. albuterol HFA (VENTOLIN HFA) 90 mcg/actuation inhaler Inhale 2 Puffs as instructed every 6 hours as needed for wheezing/shortness of breath. nitroglycerin sublingual (NITROQUICK) 0.4 mg SL tablet Dissolve 1 tablet under the tongue every 5 minutes as needed for Chest Pain. COMPOUN (more content not included)... Normal [facility] Comprehensive metabolic 2000 panelon 08-28-2024 Albumin [Mass/Vol] 4.1 g/dL Normal 3.9-4.9 [facility] Comment on above: Order Comment: Speci men Type: BLOOD SPECIMEN [facility] Address: [address] [place] [address] Performed By: #### 5 8410-2 #### [facility] CLIA [id number] [address] [place] [address] [place] ALP [Catalytic activity/Vol] 68 U/L Normal 38-113 [facility] Comment on above: Order Comment: Speci men Type: BLOOD SPECIMEN [facility] Address: [address] [place] [address] Performed By: #### 5 8410-2 #### [facility] CLIA [id number] [address] [place] [address] [place] ALT [Catalytic activity/Vol] U/L Low 10-54 [facility] Comment on above: Order Comment: Speci men Type: BLOOD SPECIMEN [facility] Address: [address] [place] [address] Result Comment: Resu lt rechecked. Performed By: #### 5 8410-2 #### [facility] CLIA [id number] [address] [place] [address] [place] Anion gap [Moles/Vol] 11 mmol/L Normal 8-15 [facility] Comment on above: Order Comment: Speci men Type: BLOOD SPECIMEN [facility] Address: [address] [place] [address] Performed By: #### 5 8410-2 #### [facility] CLIA [id number] [address] [place] [address] [place] AST [Catalytic activity/Vol] 12 U/L Low 14-40 [facility] Comment on above: Order Comment: Speci men Type: BLOOD SPECIMEN [facility] Address: [address] [place] [address] Performed By: #### 5 8410-2 #### [facility] CLIA [id number] [address] [place] [address] [place] Bilirubin [Mass/Vol] 0.5 mg/dL Normal 0.2-1.3 [facility] Comment on above: Order Comment: Speci men Type: BLOOD SPECIMEN [facility] Address: [address] [place] [address] Performed By: #### 5 8410-2 #### [facility] CLIA [id number] [address] [place] [address] [place] Calcium [Mass/Vol] 8.9 mg/dL Normal 8.5-10.2 [facility] Comment on above: Order Comment: Speci men Type: BLOOD SPECIMEN [facility] Address: [address] [place] [address] Performed By: #### 5 8410-2 #### [facility] CLIA [id number] [address] [place], [place] [id number] [place] Chloride [Moles/Vol] 111 mmol/L High 98-107 [facility] Comment on above: Order Comment: Speci men Type: BLOOD SPECIMEN [facility] Address: [address] [place] [address] Performed By: #### 5 8410-2 #### [facility] CLIA [id number] [address] [place] [address] [place] CO2 [Moles/Vol] 17 mmol/L Low 22-30 [facility] Comment on above: Order Comment: Speci men Type: BLOOD SPECIMEN [facility] Address: [address] [place] [address] Performed By: #### 5 8410-2 #### [facility] CLIA [id number] [address] [place] [address] [place] Creatinine [Mass/Vol] 0.92 mg/dL Normal 0.73-1.22 [facility] Comment on above: Order Comment: Speci men Type: BLOOD SPECIMEN [facility] Address: [address] [place] [address] Performed By: #### 5 8410-2 #### [facility] CLIA [id number] [address] [place] [address] OF [facility] Creatinine and Glomerular filtration rate.predicted panel (S/P/Bld) 88 mL/min/1.73m??? Normal >=60 [facility] Comment on above: Order Comment: Speci men Type: BLOOD SPECIMEN [facility] Address: [address] [place] [address] Result Comment: Rossy mated Glomerular Filtration Rate (eGFR) is calculated using the 2020 CKD-EPI creatinine equation. This equation utilizes serum creatinine, sex, and age as parameters. The creatinine assay has traceable calibration to isotope dilution-mass spectrometry. Refer to KDIGO guidelines for clinical interpretation. In patients with unstable renal function, e.g. those with acute kidney injury, the eGFR may not accurately reflect actual GFR. Performed By: #### 5 8410-2 #### [facility] CLIA [id number] [address] [place] [address] [place] Glucose [Mass/Vol] 111 mg/dL High 74-99 [facility] Comment on above: Order Comment: Speci men Type: BLOOD SPECIMEN [facility] Address: [address] [place] [address] Result Comment: The [place] Diabetes [employer] (ADA) provides guidance for cutoff values for fasting glucose and random glucose. The ADA defines fasting as no caloric intake for at least 8 hours. Fasting plasma glucose results between 100 to 125 mg/dL indicate increased risk for diabetes (prediabetes). Fasting plasma glucose results greater than or equal to 126 mg/dL meet the criteria for diagnosis of diabetes. In the absence of unequivocal hyperglycemia, results should be confirmed by repeat testing. In a patient with classic symptoms of hyperglycemia or hyperglycemic crisis, random plasma glucose results greater than or equal to 200 mg/dL meet the criteria for diagnosis of diabetes. Reference: Standards of Medical Care in Diabetes 2016, [place] [employer]. Diabetes Care. 2016.39(Suppl 1). Performed By: #### 5 8410-2 #### [facility] IA [id number] [address] [place] [address] [place] Potassium [Moles/Vol] 4.6 mmol/L Normal 3.7-5.1 [facility] Comment on above: Order Comment: Melidai men Type: BLOOD SPECIMEN [facility] Address: [address] [place] [address] Performed By: #### 5 8410-2 #### [facility] IA [id number] [address] [place] [address] [place] Protein [Mass/Vol] 7.2 g/dL Normal 6.3-8.0 [facility] Comment on above: Order Comment: Melidai men Type: BLOOD SPECIMEN [facility] Address: [address] [place] [address] Performed By: #### 5 8410-2 #### [facility] IA [id number] [address] [place], [place] [id number] [place] Sodium [Moles/Vol] 139 mmol/L Normal 136-144 [facility] Comment on above: Order Comment: Speci men Type: BLOOD SPECIMEN [facility] Address: [address] [place] [address] Performed By: #### 5 8410-2 #### [facility] CLIA [id number] [address] [place] [address] [place] Urea nitrogen [Mass/Vol] 17 mg/dL Normal 9-24 [facility] Comment on above: Order Comment: Speci men Type: BLOOD SPECIMEN [facility] Address: [address] [place] [address] Performed By: #### 5 8410-2 #### [facility] CLIA [id number] [address] [place] [address] [place] Liver ultrasound attenuation by transient elastographyon 08-28-2024 Fibroscan Report Date performed: August 28, 2024 Performed by: Syeda Alexander RN Interpreted by: Fabiola Miller APRN, JONG Patient fasted 3 hours:Yes Indication: Alcoholic liver disease Technical difficulties: None. Result: The reading was adequate. Please refer to get images report for individual readings Number of readings: 10 IQR %: 15% E (kpa): 7.1 CAP: 277 Impression The liver stiffness is 7.1 kPa which corresponds to 91% chance of stage F0-F2 fibrosis. The CAP analysis showed grade S2 of liver steatosis. Stage of liver fibrosis based on above kPa: A 91% chance of stage 0-2 fibrosis A 9% chance of stage 3-4 fibrosis (advanced fibrosis) A <1% chance of stage 4 fibrosis (cirrhosis). A kPa >20 indicates a high likelihood of stage 4 fibrosis/cirrhosis, consider further testing to confirm and referral to hepatology. 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 Alcoholic Liver disease Fibroscan Fibrosis Risk <7 kPA = F0-F2 96%, F3+F4 4%, F4 <1% <10 kPA = F0-F2 91%, F3+F4 9%, F4 <1% 10-15 kPA = F0-F2 56%, F3+F4 44%, F4 16% >15 kPA = F0-F2 15%, F3+F4 85%, F4 68% Grade CAP value up to 237 dB/M corresponds to S0 (< 10 % Fat) CAP value between (238 - 258 dB/M) corresponds to S1 (>/= 11 % Fat) CAP value between (259 - 289 dB/M) corresponds to S2 (>/= 33 % Fat) CAP value > 290dB/M corresponds to S3 (>/= 67 % Fat) stage 0 ( S0:< 10 % steatosis) stage 1 (>/= S1: 11%-33% steatosis) stage 2 (>/= S2: 34%-66% steatosis) stage 3 (>/= S3: > 66% steatosis) Reference Blake Y, Ariel Q, Blake T, Jayde J, Blake H, Faraz T. Controlled attenuation parameter for assessment of hepatic steatosis grades: a diagnostic meta-analysis. Int J Clin Exp Med. 2015 Aug 15;8(10):78953-34. PMID: 22972216; PMCID: IMO8598825. Stuart Fuentes, Russel KIMBERLEE, Lukasz M, Carie F, Chasidy J, Marek O, Richard F, Harjit M, Evangelista G, Anahy A, Hien E, Herve L, Zahraa G, Reese A, Vivian U, Sariah S, Kota P, Quirino V, de Edgard V, Pinrico M, Ajit EA. Refining the Baveno elastography criteria for the definition of compensated advanced chronic liver disease. J Hepatol. 2020;74(5):7727-7979. doi: 10.1016/j.jhep.2020.11.050 . Epub 2019Oct 15. PMID: 06175247. Renita Fuentes, Dorie B, Nallely Fuentes, Raghav Fuentes, Willis S, Velvet Quarles, Karli Quarles, Swati Culver. [facility] practice guidance on the clinical assessment and management of nonalcoholic fatty liver disease. Hepatology. 2022;77(5):7894-7701. doi:10.1097/HEP.[id number] [facility] Radiology Study observation (narrative) [facility] No Panel Informationon 08-28 [facility] PT panel Coag (PPP)on 2023 INR Coag (PPP) [Relative time] 1.3 {INR} Normal 0.9-1.3 [facility] Comment on above: Order Comment: Ella rosenberg Type: BLOOD SPECIMEN [facility] Address: [address] [place] [address] Result Comment: Dorothy min K Antagonist (VKA) Therapeutic Range: INR 2 to 3 (Target INR of 2.5) Note: For patients treated with VKA drugs, such as warfarin, the [place] [employer] 2012 Guideline recommends a therapeutic INR range of 2 to 3 (target INR of 2.5). This recommendation includes high-risk patients with antiphospholipid syndrome with previous arterial or venous thromboembolism, current-generation mechanical or bioprosthetic aortic heart valve replacement. Note: Patients with mechanical aortic valve replacement and additional risk factors for thromboembolic events (atrial fibrillation, previous thromboembolism, LV dysfunction, hypercoagulable conditions) or an older generation mechanical AVR (i.e., ball in-Cage) or any mechanical MVR should have a INR therapeutic range of 2.5 to 3.5 (target INR of 3). Moisett GH, et al. Chest 2012, 141:7S-47S Pily RA, et al. [facility] 2017, 70: 252-289 Performed By: #### 5 8410-2 #### [facility] CLIA [id number] [address] [place] [address] [place] PT Coag (PPP) [Time] 13.2 s High 9.7-13.0 [facility] Comment on above: Order Comment: Ella rosenberg Type: BLOOD SPECIMEN [facility] Address: [address] [place] [address] Performed By: #### 5 8410-2 #### [facility] CLIA [id number] [address] [place] [address] [place] US ABD RIGHT UPPER QUADRANTo n 08-28-2024 US ABD RIGHT UPPER QUADRANT * * *Final Report* * * DATE OF EXAM: Aug 28 2024 11:20AM TARA 1032 - US ABD RIGHT UPPER QUADRANT / PROCEDURE REASON: Liver disease * * * * Physician Interpretation * * * * EXAMINATION: RIGHT UPPER QUADRANT ULTRASOUND CLINICAL HISTORY: Cirrhosis. TECHNIQUE: Sonography of the right upper quadrant was performed. Images were obtained and stored in a permanent archive. MQ: URUQ_2 COMPARISON: Right upper quadrant ultrasound, 03/14/2024, 03/09/2023 RESULT: Pancreas: Obscured by bowel gas. Liver: Echotexture: Coarse Echogenicity: Heterogeneous Surface contour: Nodular Lesions: 0.5 echogenic lesion in the right hepatic lobe from 10/08/2021. Biliary: No intrahepatic biliary duct dilation. CBD: 0.2 cm at the hilum. Gallbladder: Normal caliber -Contents: Cholelithiasis and sludge present -Wall: Normal -Other: No pericholecystic fluid. Right Kidney: No hydronephrosis. Ascites: None. IMPRESSION: Cirrhotic liver morphology. No suspicious lesions. Cholelithiasis. Psychiatric Arnp: [facility] Transcribe Date/Time: Aug 28 2024 11:22A Dictated by : MADISON HARDWICK MD This examination was interpreted and the report reviewed and electronically signed by: SOTERO CARDENAS MD on Aug 28 2024 12:15PM EST [id number] Normal [facility] US Abdomen RUQon 08-28-2024 Radiology Study [facility]narrative) [facility] IMPRESSION: Cirrhotic liver morphology. No suspicious lesions. Cholelithiasis. Psychiatric Arnp: [facility] Transcribe Date/Time: Aug 28 2024 11:22A Dictated by : MADISON HARDWICK MD This examination was interpreted and the report reviewed and electronically signed by: SOTERO CARDENAS MD on Aug 28 2024 12:15PM EST DIVISION OF RADIOLOGY * * *Final Report* * * DATE OF EXAM: Aug 28 2024 11:20AM TARA 1032 - US ABD RIGHT UPPER QUADRANT / PROCEDURE REASON: Liver disease * * * * Physician Interpretation * * * * EXAMINATION: RIGHT UPPER QUADRANT ULTRASOUND CLINICAL HISTORY: Cirrhosis. TECHNIQUE: Sonography of the right upper quadrant was performed. Images were obtained and stored in a permanent archive. MQ: URUQ_2 COMPARISON: Right upper quadrant ultrasound, 03/14/2024, 03/09/2023 RESULT: Pancreas: Obscured by bowel gas. Liver: Echotexture: Coarse Echogenicity: Heterogeneous Surface contour: Nodular Lesions: 0.5 echogenic lesion in the right hepatic lobe from 10/08/2021. Biliary: No intrahepatic biliary duct dilation. CBD: 0.2 cm at the hilum. Gallbladder: Normal caliber -Contents: Cholelithiasis and sludge present -Wall: Normal -Other: No pericholecystic fluid. Right Kidney: No hydronephrosis. Ascites: None. DIVISION OF RADIOLOGY Provider, [facility] - 08/28/2024 * * *Final Report* * * DATE OF EXAM: Aug 28 2024 11:20AM TARA 1032 - US ABD RIGHT UPPER QUADRANT / PROCEDURE REASON: Liver disease * * * * Physician Interpretation * * * * EXAMINATION: RIGHT UPPER QUADRANT ULTRASOUND CLINICAL HISTORY: Cirrhosis. TECHNIQUE: Sonography of the right upper quadrant was performed. Images were obtained and stored in a permanent archive. MQ: URUQ_2 COMPARISON: Right upper quadrant ultrasound, 03/14/2024, 03/09/2023 RESULT: Pancreas: Obscured by bowel gas. Liver: Echotexture: Coarse Echogenicity: Heterogeneous Surface contour: Nodular Lesions: 0.5 echogenic lesion in the right hepatic lobe from 10/08/2021. Biliary: No intrahepatic biliary duct dilation. CBD: 0.2 cm at the hilum. Gallbladder: Normal caliber -Contents: Cholelithiasis and sludge present -Wall: Normal -Other: No pericholecystic fluid. Right Kidney: No hydronephrosis. Ascites: None. IMPRESSION IMPRESSION: Cirrhotic liver morphology. No suspicious lesions. Cholelithiasis. Psychiatric Arnp: [facility] Transcribe Date/Time: Aug 28 2024 11:22A Dictated by : MADISON HARDWICK MD This examination was interpreted and the report reviewed and electronically signed by: SOTERO CARDENAS MD on Aug 28 2024 12:15PM [facility] EGD Study observation Narrat nubia 08-22-2024 A31 Gastrointestinal Endoscopy Patient Name: Steph Baumann Procedure Date: 08/22/2024 10:26 AM Date of : 1950 Admit Type: Outpatient Age: 74 Room: [address] Gender: Male Note Status: Finalized Attending MD: Heladio Ramsey MD, [id number] Procedure: Upper GI endoscopy Indications: Esophageal varices Providers: Heladio Ramsey MD Patient Profile: This is a 74 year old male. Refer to note in patient chart for documentation of history and physical. Referring Physician: Merlin Loredo (Referring MD) Medicines: Midazolam 2 mg IV, Fentanyl 50 micrograms IV Complications: No immediate complications. Requesting Provider: Procedure: Pre-Anesthesia Assessment: - Prior to the procedure, a History and Physical was performed, and patient medications and allergies were reviewed. The patient is competent. The risks and benefits of the procedure and the sedation options and risks were discussed with the patient. All questions were answered and informed consent was obtained. Patient identification and proposed procedure were verified by the physician and the nurse in the pre-procedure area. Mental Status Examination: anxious. Airway Examination: normal oropharyngeal airway and neck mobility. Respiratory Examination: clear to auscultation. CV Examination: normal. Prophylactic Antibiotics: The patient does not require prophylactic antibiotics. Prior Anticoagulants: The patient has taken Eliquis (apixaban), last dose was 8 days prior to procedure. ASA Grade Assessment: III - A patient with severe systemic disease. After reviewing the risks and benefits, the patient was deemed in satisfactory condition to undergo the procedure. The anesthesia plan was to use moderate sedation / analgesia (conscious sedation). Immediately prior to administration of medications, the patient was re-assessed for adequacy to receive sedatives. The heart rate, respiratory rate, oxygen saturations, blood pressure, adequacy of pulmonary ventilation, and response to care were monitored throughout the procedure. The physical status of the patient was re-assessed after the procedure. After obtaining informed consent, the endoscope was passed under direct vision. Throughout the procedure, the patient's blood pressure, pulse, and oxygen saturations were monitored continuously. The Endoscope was introduced through the mouth, and advanced to the second part of duodenum. The upper GI endoscopy was accomplished without difficulty. The patient tolerated the procedure well. Moderate Sedation: The administration of moderate sedation was initiated at 10:47 AM. Moderate (conscious) sedation was administered by the nurse and supervised by the endoscopist. The following parameters were monitored: oxygen saturation, heart rate, blood pressure, and response to care. Findings: The examined esophagus was tortuous. Small (< 5 mm) varices were found in the lower third of the esophagus. The Z-line was irregular and was found 42 cm from the incisors. The entire examined stomach was normal. The examined duodenum was normal. Impression: - Tortuous esophagus. - Small (< 5 mm) esophageal varices. - Z-line irregular, 42 cm from the incisors. - Normal stomach. - Normal examined duodenum. - No specimens collected. Estimated Blood Loss: Estimated blood loss: none. Recommendation: - Discharge patient to home. - Resume previous diet. - Repeat upper endoscopy in 1 year for surveillance. - Return to referring physician as previously scheduled. Procedure Code(s): --- Professional --- 17195, Esophagogastroduodenoscopy , flexible, transoral; diagnostic, including malinda (more content not included)... [facility] Radiology Study observation (narrative) [facility] HISTORY PHYSICALon HISTORY PHYSICAL HNO ID: [id number] Author: HELADIO MARIEE MD Service: Hepatology Author Type: Physician Type: H&P Filed: 08/22/2024 10:36 Note Text: HISTORY AND PHYSICAL Steph Baumann, 74 year old male Current history and physical on file: Yes Is a new History and Physical required for today's visit? Yes Indication for procedure: Other surveillance of varices PROCEDURE(S) SCHEDULED FOR: EGD (Esophagogastroduodenoscop y) with or without biopsies, removal of polyps or lesions, dilation ( any means), treatment of bleeding ( any means), Barrx treatment of Caleb's Esophagus, image tube placement or cryo therapy treatment based on clinical findings. Possible banding BASELINE BEHAVIOR: Calm BASELINE ORIENTATION: A AND O x3 All medications and allergies reviewed: Yes Skin Assessment: Warm dry mucus membranes pink Airway/Respiratory Assessment: Airway: visualization of the uvula- Yes Mouth: opening greater than 2 fingerbreadths- Yes Neck: full range of motion- Yes Breath sounds clear/equal- Yes Cardiac Assessment: Regular rate and rhythm without murmur Abdominal Assessment: Abdomen soft, non-tender, no masses or organomegaly. Sedation Plan: Moderate Additional Comments: None Heladio Ramsey MD [facility] NURSING PROGon 08-22-2024 NURSING PROG HNO ID: [id number] Author: TARSHA DUTTON RN Service: ? Author Type: Registered Nurse Type: Nursing Progress Note Filed: 08/22/2024 11:48 Note Text: AMBULATORY PATIENT EDUCATION NOTE TOPIC: GI PROCEDURES: Esophagogastroduodenoscopy (EGD) for control of bleeding,dilation(any means),imaging,tube placement READINESS TO LEARN INSTRUCTION PROVIDED TO: Patient, readness to learn accessed prior to procedure COGNITIVE ABILITY: Alert and oriented PTED MOTIVATION TO LEARN: Eager FAMILY SUPPORT: High - Very involved in pt care IPATIENT LEARNS BEST BY: Individual Instruction FACTORS AFFECTING LEARNING: None PHYSICAL LIMITATIONS AFFECTING LEARNING: None LEARNING RESPONSE METHOD OF INSTRUCTION: Individual instruction PATIENT / FAMILY RESPONSE: Verbalizes understanding of: WORSENING CONDITION-Signs and symptoms of a worsening condition that warrant a call to the physician FOLLOW-UP PLAN: Complete - No need for follow-up SUPPLEMENTAL MATERIAL: Procedure Discharge Instructions REFERRAL (RECOMMENDATION): None Electronically Signed By: Tarsha Dutton RN [facility] NURSING PROG HNO ID: [id number] Author: HARJEET DEL ANGEL RN Service: ? Author Type: Registered Nurse Type: Nursing Progress Note Filed: 08/22/2024 09:55 Note Text: PRE OP LEARNING ASSESSMENT PROCEDURE/SURGERY: GI PROCEDURES: EGD READINESS TO LEARN COGNITIVE ABILITY: Alert and oriented MOTIVATION TO LEARN: Eager FAMILY SUPPORT: High - Very involved in pt care PATIENT LEARNS BEST BY: Individual Instruction FACTORS AFFECTING LEARNING: None PHYSICAL LIMITATIONS AFFECTING LEARNING: Limited Mobility Electronically Signed By: HARJEET DEL ANGEL RN In Department: GASTROENTEROLOGY [facility] Upper GI endoscopy 024 Upper GI endoscopy A31 Gastrointestinal Endoscopy Patient Name: Steph Baumann Procedure Date: 08/22/2024 10:26 AM Date of : 1950 Admit Type: Outpatient Age: 74 Room: [place] [address] Gender: Male Note Status: Finalized Attending MD: Heladio Ramsey MD, [id number] Procedure: Upper GI endoscopy Indications: Esophageal varices Providers: Heladio Ramsey MD Patient Profile: This is a 74 year old male. Refer to note in patient chart for documentation of history and physical. Referring Physician: Merlin Loredo (Referring MD) Medicines: Midazolam 2 mg IV, Fentanyl 50 micrograms IV Complications: No immediate complications. Requesting Provider: Procedure: Pre-Anesthesia Assessment: - Prior to the procedure, a History and Physical was performed, and patient medications and allergies were reviewed. The patient is competent. The risks and benefits of the procedure and the sedation options and risks were discussed with the patient. All questions were answered and informed consent was obtained. Patient identification and proposed procedure were verified by the physician and the nurse in the pre-procedure area. Mental Status Examination: anxious. Airway Examination: normal oropharyngeal airway and neck mobility. Respiratory Examination: clear to auscultation. CV Examination: normal. Prophylactic Antibiotics: The patient does not require prophylactic antibiotics. Prior Anticoagulants: The patient has taken Eliquis (apixaban), last dose was 8 days prior to procedure. ASA Grade Assessment: III - A patient with severe systemic disease. After reviewing the risks and benefits, the patient was deemed in satisfactory condition to undergo the procedure. The anesthesia plan was to use moderate sedation / analgesia (conscious sedation). Immediately prior to administration of medications, the patient was re-assessed for adequacy to receive sedatives. The heart rate, respiratory rate, oxygen saturations, blood pressure, adequacy of pulmonary ventilation, and response to care were monitored throughout the procedure. The physical status of the patient was re-assessed after the procedure. After obtaining informed consent, the endoscope was passed under direct vision. Throughout the procedure, the patient's blood pressure, pulse, and oxygen saturations were monitored continuously. The Endoscope was introduced through the mouth, and advanced to the second part of duodenum. The upper GI endoscopy was accomplished without difficulty. The patient tolerated the procedure well. Moderate Sedation: The administration of moderate sedation was initiated at 10:47 AM. Moderate (conscious) sedation was administered by the nurse and supervised by the endoscopist. The following parameters were monitored: oxygen saturation, heart rate, blood pressure, and response to care. Findings: The examined esophagus was tortuous. Small (< 5 mm) varices were found in the lower third of the esophagus. The Z-line was irregular and was found 42 cm from the incisors. The entire examined stomach was normal. The examined duodenum was normal. Impression: - Tortuous esophagus. - Small (< 5 mm) esophageal varices. - Z-line irregular, 42 cm from the incisors. - Normal stomach. - Normal examined duodenum. - No specimens collected. Estimated Blood Loss: Estimated blood loss: none. Recommendation: - Discharge patient to home. - Resume previous diet. - Repeat upper endoscopy in 1 year for surveillance. - Return to referring physician as previously scheduled. Procedure Code(s): --- Professional --- 26486, Esophagogastroduodenoscopy , flexible, transoral; diagnostic, including collection of specimen(s) by brushing or washing, when performed (separate procedure) CPT copyright 2020 [employer]. All rights reserved. The codes documented in this report are preliminary and upon student union consultant review may be revised to meet current compliance requirements. Attending Participation: I was present and participated during the entire procedure, including non-marley portions. Scope In: 10:53:23 AM Scope Out: 10:56:59 AM MD Heladio Braswell MD 08/22/2024 11:00:59 AM This report has been signed electronically by Heladio Ramsey MD Number of Addenda: 0 Note Initiated On: 08/22/2024 10:26 AM [facility] STEPH BAUMANN ([id number]) 1950 M Date Time Provider Department 08/14/24 FRANCHESCA FONTAINE3 During your visit today, we recorded the following information about you: Franchesca Fontaine RN 08/14/2024 10:23 AM Signed Attempted to reach the patient at the contact number that they provided [phone] (home) . 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 Failure to have a responsible adult accompany the patient to their procedure appointment prevents the use of sedation or anesthesia for their procedure; and can result in cancellation of the procedure NPO instructions were reviewed. Clear liquids the day before the procedure, stop all liquids 4 hours before the procedure Instructions to contact their primary care provider regarding their medications and which medications to stop in preparation for their procedure Instructions to completely read and follow the written instructions that they recieved regarding their procedure. Number to call with questions or concerns [phone] Number to call to cancel their procedure [phone] Franchesca Fontaine MA Allergies As of Date: 08/14/2024 Noted Allergy Reaction METFORMIN 12/12/2020 6 - Diarrhea Comments: Even low dose caused diarrhea OXYCODONE-ACETAMINOPHEN 09/08/2023 16 - Unknown Date Reviewed: 06/20/2024 Reviewed by: Glenda Urena LPN - Fully Assessed Reason for Visit: Education Of Patient/family [904] Appointment [186] Cmt: Voicemail left regarding 08/22/2024 Appointment Prescriptions as of 08/14/2024 - denosumab (PROLIA) 60 mg/mL Injection to be administered once every 6 months - lactulose 20 gram/30 mL solution Take 45 mL by mouth three times a day. - lisinopril (ZESTRIL) 5 mg tablet Take 5 mg by mouth once daily. - insulin aspart U-100 (NOVOLOG) 100 unit/mL Inject subcutaneously three times a day before meals. - aluminum-magnesium hydroxide-simethicone (MAALOX,MYLANTA,MAG-AL PLUS) 200-200-20 mg/5 mL suspension Take 30 mL by mouth every 4 hours as needed. - bisacodyl (DULCOLAX) 10 mg supp 10 mg by RECTAL route once daily as needed for constipation. - sodium phosphate,mono-dibasic (FLEET ENEMA RECTAL) 1 Enema by RECTAL route as needed. - dextrose (GLUCOSE GEL ORAL) Take 1 Dose by mouth as needed. - GUAIFENESIN ORAL Take 10 mL by mouth every 4 hours as needed. - magnesium hydroxide (MILK OF MAGNESIA ORAL) Take 30 mL by mouth as needed. - methyl salicylate-menthol (MUSCLE RUB) 15-10 % topical cream Apply to right hip topically in the morning for pain. - potassium chloride ER (KLOR-CON) 20 mEq tablet Take 20 mEq by mouth once daily. - cholecalciferol (VITAMIN D-3) 50 mcg (2,000 unit) tablet Take 2,000 Units by mouth once daily. - sertraline (ZOLOFT) 50 mg tablet Take 50 mg by mouth once daily. - acetaZOLAMIDE (DIAMOX) 250 mg tablet Take 250 mg by mouth two times a day. - docusate sodium (COLACE) 100 mg capsule Take 100 mg by mouth two times a day. - pantoprazole DR (PROTONIX) 40 mg tablet Take 40 mg by mouth two times a day. - dulaglutide (TRULICITY) 3 mg/0.5 mL pen injector Inject 3 mg subcutaneously one time a week. Tuesday - rifAXIMin (XIFAXAN) 550 mg tablet TWICE A DAY - GLUCAGON EMERGENCY KIT, HUMAN, INJECTION Inject 1 mL subcutaneously as needed. - sodium,potassium phosphates (POTASSIUM AND SODIUM PHOSPHATES ORAL) Take by mouth. 280-160-250 MG one packet by mouth three times daily - Sennosides 8.6 mg cap Take 17.2 mg by mouth daily at bedtime. - INSULIN LISPRO SUBCUTANEOUS Inject subcutaneously. Per sliding scale - traMADol (ULTRAM) 50 mg tablet Take 50 mg by mouth every 8 hours as needed for pain. Take one tablet by mouth every eight hours as needed for pain - spironolactone (ALDACTONE) 25 mg tablet Take 25 mg by mouth once daily. - calcium carbonate (CALCIUM 300 ORAL) Take 1 tablet by mouth once daily. - iron ps complex/B12/folic acid (FERREX 150 FORTE ORAL) Take 1 tablet by mouth once daily. - carvedilol (COREG) 3.125 mg tablet Take 1 tablet by mouth twice daily. - ondansetron orally disintegrating (ZOFRAN ODT) 4 mg disintegrating tablet Take 1 tablet by mouth every 8 hours as needed for nausea/vomiting. - baclofen (LIORESAL) 20 mg tablet Take 20 mg by mouth three times a day. - apixaban (ELIQUIS) 5 mg tab(s) Take 1 tablet by mouth twice daily. - bumetanide (BUMEX) 1 mg tablet Take 1 tablet by mouth once daily. - lisinopril (ZESTRIL) 40 mg tablet Take 1 tablet by mouth once daily. - insulin glargine (BASAGLAR KWIKPE (more content not included)... [facility] Ammoniaon 08-03-2024 Ammonia (P) [Moles/Vol] 31.0 umol/L Normal 11-32 [facility] Comment on above: Order Comment: 302.1 Performed By: #### L 503.5510 #### [facility] [address] [place], [address] CBC-Complete Blood Cnt No Di ffon 08-02-2024 Erythrocyte distribution width (RBC) [Ratio] 13.8 % Normal 11.6-14.6 [facility] Comment on above: Order Comment: 302.1 Performed By: #### L 500.4050, L100.0500 #### [facility] [address] [place], [address] Hematocrit (Bld) [Volume fraction] 39.1 % Low 40-54 [facility] Comment on above: Order Comment: 302.1 Performed By: #### L 500.4050, L100.0500 #### [facility] [address] [place], [address] Hemoglobin (Bld) [Mass/Vol] 12.4 g/dL Low 13.0-16.5 [facility] Comment on above: Order Comment: 302.1 Performed By: #### L 500.4050, L100.0500 #### [facility] [address] [place], [address] MCH (RBC) [Entitic mass] 31.8 pg Normal 27.0-32.0 [facility] Comment on above: Order Comment: 302.1 Performed By: #### L 500.4050, L100.0500 #### [facility] [address] [place], [address] MCHC (RBC) [Mass/Vol] 31.7 g/dL Low 32-36 [facility] Comment on above: Order Comment: 302.1 Performed By: #### L 500.4050, L100.0500 #### [facility] [address] [place], [address] MCV (RBC) [Entitic vol] 100.3 fL High 80-94 [facility] Comment on above: Order Comment: 302.1 Performed By: #### L 500.4050, L100.0500 #### [facility] [address] [place], [address] Platelet mean volume (Bld) [Entitic vol] 11.5 fL Normal 6.2-12.0 [facility] Comment on above: Order Comment: 302.1 Performed By: #### L 500.4050, L100.0500 #### [facility] [address] [place], [address] Platelets (Bld) [#/Vol] 137 10*3/uL Low 150-450 [facility] Comment on above: Order Comment: 302.1 Performed By: #### L 500.4050, L100.0500 #### [facility] [address] [place], [address] RBC (Bld) [#/Vol] 3.90 10*6/uL Low 4.6-6.2 [facility] Comment on above: Order Comment: 302.1 Performed By: #### L 500.4050, L100.0500 #### [facility] [address] [place], [address] RDW SD 50.5 fl High 35.1-43.9 [facility] Comment on above: Order Comment: 302.1 Performed By: #### L 500.4050, L100.0500 #### [facility] [address] [place], [address] WBC (Bld) [#/Vol] 7.7 10*3/uL Normal 4.4-11.0 [facility] Comment on above: Order Comment: 302.1 Performed By: #### L 500.4050, L100.0500 #### [facility] [address] [place], [address] Comprehensive Metabolic Prof ilon 08-02-2024 Albumin [Mass/Vol] 3.3 g/dL Normal 3.2-5.0 [facility] Comment on above: Order Comment: 302.1 Performed By: #### L 500.4050, L100.0500 #### [facility] [address] [place], [address] Albumin/Globulin [Mass ratio] 0.9 {ratio} Normal 0.9-2.4 [facility] Comment on above: Order Comment: 302.1 Performed By: #### L 500.4050, L100.0500 #### [facility] [address] [place], [address] ALK P 63 U/L Normal 45-117 [facility] Comment on above: Order Comment: 302.1 Performed By: #### L 500.4050, L100.0500 #### [facility] [address] [place], [address] ALT [Catalytic activity/Vol] 10 U/L Low 16-61 [facility] Comment on above: Order Comment: 302.1 Performed By: #### L 500.4050, L100.0500 #### [facility] [address] [place], [address] AST [Catalytic activity/Vol] 12 U/L Low 15-37 [facility] Comment on above: Order Comment: 302.1 Performed By: #### L 500.4050, L100.0500 #### [facility] [address] [place], [address] Bilirubin [Mass/Vol] 0.30 mg/dL Normal 0.20-1.00 [facility] Comment on above: Order Comment: 302.1 Result Comment: For patients on eltrombopag therapy, use of Dimension [place] TBIL is not recommended. Performed By: #### L 500.4050, L100.0500 #### [facility] [address] [place], [address] BUN/CRE 31.6 RATIO High 10-20 [facility] Comment on above: Order Comment: 302.1 Performed By: #### L 500.4050, L100.0500 #### [facility] [address] [place], [address] CA,Total 8.9 mg/dL Normal 8.5-10.1 [facility] Comment on above: Order Comment: 302.1 Performed By: #### L 500.4050, L100.0500 #### [facility] [address] [place], [address] Chloride [Moles/Vol] 116 mmol/L High 98-107 [facility] Comment on above: Order Comment: 302.1 Performed By: #### L 500.4050, L100.0500 #### [facility] [address] [place], [address] CO2 [Moles/Vol] 19.0 mmol/L Low 21.0-32.0 [facility] Comment on above: Order Comment: 302.1 Performed By: #### L 500.4050, L100.0500 #### [facility] [address] [place], [address] Creatinine [Mass/Vol] 1.55 mg/dL High 0.70-1.30 [facility] Comment on above: Order Comment: 302.1 Result Comment: The validity of the calculated GFR GFRAA in patients over 70 years has not been determined. Clinical correlation is essential. Performed By: #### L 500.4050, L100.0500 #### [facility] [address] [place], [address] EST GFR - AA 57 mL/min Low >60 [facility] Comment on above: Order Comment: 302.1 Result Comment: Afri can [place] GFR Calc Performed By: #### L 500.4050, L100.0500 #### [facility] [address] [place], [address] GAP 6 Normal 5-15 [facility] Comment on above: Order Comment: 302.1 Performed By: #### L 500.4050, L100.0500 #### [facility] [address] [place], [address] GFR/1.73 sq M.predicted among non-blacks MDRD (S/P/Bld) [Vol rate/Area] 47 mL/min/{1.73_m2} Low >60 [facility] Comment on above: Order Comment: 302.1 Result Comment: Non- GFR Calc Performed By: #### L 500.4050, L100.0500 #### [facility] [address] [place], [address] Globulin (S) [Mass/Vol] 3.6 g/dL Normal 2.2-4.2 [facility] Comment on above: Order Comment: 302.1 Performed By: #### L 500.4050, L100.0500 #### [facility] [address] [place], [address] Glucose [Mass/Vol] 151 mg/dL High 74-106 [facility] Comment on above: Order Comment: 302.1 Result Comment: Fast ing Glucose result greater than or equal to 126 mg/dL suggests DIABETES MELLITUS per A.D.A. criteria. Performed By: #### L 500.4050, L100.0500 #### [facility] [address] [place], [address] Potassium [Moles/Vol] 4.1 mmol/L Normal 3.5-5.1 [facility] Comment on above: Order Comment: 302.1 Performed By: #### L 500.4050, L100.0500 #### [facility] [address] [place], [address] Sodium [Moles/Vol] 141 mmol/L Normal 136-145 [facility] Comment on above: Order Comment: 302.1 Performed By: #### L 500.4050, L100.0500 #### [facility] [address] [place], [address] T PROT 6.9 g/dL Normal 6.4-8.2 [facility] Comment on above: Order Comment: 302.1 Performed By: #### L 500.4050, L100.0500 #### [facility] [address] [place], [address] Urea nitrogen [Mass/Vol] 49 mg/dL High 7-18 [facility] Comment on above: Order Comment: 302.1 Performed By: #### L 500.4050, L100.0500 #### [facility] [address] [place], [address] Hemoglobin A1con 07-16-2024 HbA1c (Bld) [Mass fraction] 6.6 % High 3.8-5.6 [facility] Comment on above: Order Comment: 302 Result Comment: Norm al < 5.7 % Prediabetic 5.7 - 6.4 % Diabetic >or= 6.5 % Please note range changes. Performed By: #### L 503.5510 #### [facility] [address] [place], [address] Ammoniaon 07-06-2024 Ammonia (P) [Moles/Vol] 21.0 umol/L Normal 11-32 [facility] Comment on above: Order Comment: 302 Performed By: #### L 503.5510 #### [facility] [address] [place], [address] Neurology Visit Reporton Neurology Visit Report [facility] [address], [address] [place] [address] OFFICE VISIT Date of Service: 06/19/24 MR#: [id number] Acct: [id number] Name: STEPH BAUMANN Rep #: [id number] : 1950 Provider: Dr. Dwayne iniguez MD Age/Sex: 74/M Location: [facility] [place] Status: Signed HPI HPI Chief Complaint: Details: Interim History: Steph returns for follow-up visit. He has a history of hypertension, obstructive sleep apnea, diabetes mellitus, atrial fibrillation, congestive heart failure status post implanted cardioverter- defibrillator, coronary artery disease, hyperlipidemia, chronic renal insufficiency, nonalcoholic steatohepatitis and gastroesophageal reflux. He was somewhat vague with regard to times of onset of his various symptoms. A head CT from 2010 revealed a right frontal parietal mass consistent with a meningioma; this was subsequently resected. He also reported having had a stroke and stated that it occurred in 2016, however there was evidence of an old right MCA infarct on his head MRI from 2013. His stroke manifested with confusion and gait imbalance and apparently the symptoms improved. He takes Eliquis for his history of atrial fibrillation. No change in his memory has been noted within recent months. He has not had recent symptoms suggestive of recurrent cerebrovascular ischemia. In early 2021, he was diagnosed with prostate cancer. He has had radiation therapy (between January 2022 and March 2022) and hormonal therapy and has had a positive response to these treatments. He stated the cancer was nonmetastatic and following treatment was no longer detectable. He had a fall in February 2022 and sustained a right hip fracture for which he underwent right total hip replacement in February 2022. Since his fall and surgery, he has had persistent right hip pain and this has limited his mobility. He has had gait difficulty since 2020 and has had left lower extremity weakness since at least December 2021. He denied having swallowing difficulty, speech difficulty, headache, vision change, numbness, pain in the lower extremities (apart from right hip pain), neck pain and low back pain. He denied having weakness in the upper extremities and right lower extremity. He has difficulty raising the left leg and dorsiflexing the left foot. He has had a bilateral hand tremor since childhood. He has had physical therapy and had exhibited some improvement of his lower extremity motor function and gait in 2021 though subsequently his gait worsened. He has been able to stand and take 1 or 2 steps with assistance. He is prescribed tramadol for his right hip pain. He has had physical therapy and this was of some benefit. He is to see a paint spray tender. He has a several year history of urinary incontinence. He reported that he was treated with levetiracetam and topiramate for a period of time following his meningioma resection however he stated that he has never had a seizure and levetiracetam and topiramate were subsequently discontinued. He used cocaine in the past; his last use was around 2016. He used marijuana in the past; his last use was around 2006. There is no history of alcohol abuse. He has had 3 years of college education. Mini-Mental status exam score was 27/30 on 05/24/2022. Baclofen has been of some benefit in reducing his left-sided hypertonia (that was noted on initial evaluation to affect the left arm and left leg). He has peripheral arterial disease. He denied having calf claudication symptoms. A thyroid nodule was noted on his carotid ultrasound. A thyroid ultrasound revealed a large complex mass in the mid right thyroid and multiple small left thyroid cysts. The patient's reported this was evaluated by another physician and no further evaluation was needed. EMG/nerve conduction studies of the lower extremities reveal a sensorimotor polyneuropathy. Trazodone caused anxiety. His insomnia has since subsided. He previously had episodes of crying without clear cause. He is taking sertraline and has improvement of has facial expression according to his . He is taking carbidopa/levodopa 25/100 2 tablets 3 times daily; his rigidity may have diminished slightly. Physical Exam: Neuro: The patient is awake; he is bradyphrenic; he is not oriented to day of the week; he is oriented to year; he is able to spell world backwards; he is able to subtract 7 from 100; a moderate bilateral hand tremor is noted when arms are extended; no rigidity is noted in the wrists; increased muscle tone is noted in both lower extremities Neck: No bruits Heart: Regular rate and rhythm Supplemental Info Head CT (06/16/2011): FINDINGS: There is a 4.6 cm x 5.4 cm hyperdense rounded mass overlying the right frontal parietal lobes. This abuts the bony surface, where there is a focal area of hyperostosis. This is suggestive of a large meningiom (more content not included)... [facility] CNOVon 06-13-2024 CNOV Office Visit (ORMDNA ) -- STEPH BAUMANN ([id number]) 1950 M Date Time Provider Department 06/13/24 2:20 PM MAXIMO SERRANO During your visit today, we recorded the following information about you: Weight Height 79.4 kg 1.778 m Maximo Serrano MD 06/13/2024 3:04 PM Signed CONSULT ORTHOPAEDIC: HIP PRIMARY CARE PHYSICIAN: Elisa Narvaez MD REFERRING PROVIDER: No referring provider defined for this encounter. ASSESSMENT AND PLAN This is a 74-year-old male who presents with right hip pain. Patient had a femoral neck fracture in 2019 and underwent a cementless hemiarthroplasty at that time. After his recovery he was walking with a walker for around 2 years. Unfortunately due to hip pain and deconditioning he has been wheelchair-bound for the last 1-1/2 years and has been unable to walk. He has had trouble with physical therapy due to the hip pain. Majority of his hip pain is on the lateral aspect of the hip he denies any groin pain. He has rigid stiffness in his knees that do not allow him to bend freely and he is also rigidity in his upper extremities. He has history of Parkinson's disease. Patient has a past medical history that significant for pulmonary hypertension, congestive heart failure, liver disease with cirrhosis, chronic kidney disease, peripheral vascular disease, seizure disorder, stroke, diabetes. He was previously seen at [facility] by another orthopedic surgeon. He was worked up for infection and his ESR and CRP will normal back in April when they were drawn. But he is continue to have severe pain. He is here with his POA today. Again patient has not walked in 1 and half years has been wheelchair-bound has an appointment to do this entire time. CRP on 04/10/2024 was 0.4 and ESR was 15 Impression: Right hip pain after hemiarthroplasty in 2019 Patient continues to have pain in his overall dependent and wheelchair-bound for the last year and a half. He has severe deconditioning as well as rigidity and stiffness likely from immobility as well as compounded with his Parkinson's disease. He has several comorbidities including liver failure, renal failure, stroke, congestive heart failure, peripheral vascular disease, malnutrition, as well as type 2 diabetes. His hemiarthroplasty appears to be well-fixed on the x-ray. His ESR and CRP are within normal limits. He likely has pain due to deconditioning and being wheelchair-bound for the last year and a half as well as probably pain related to trochanteric bursitis and some of the heavy bearing inside the acetabular portion due to the arthritis Discussed with the patient and the POA. Given his overall medical condition deconditioning and being wheelchair-bound from a year and a half I discussed with him that a total hip revision would be recently risky giving his complex medical history and that the guaranteed that he be able to walk again would be very low given that he has not walked in a year and a half and the guarantee that would be able to give him pain relief would also be low as majority of his pain is from the lateral aspect of his hip and from his rigidity due to his Parkinson's and deconditioning would not recommend a revision hip surgery at this time. Consult was placed to chronic pain management to help assist with his overall pain and discomfort. May follow-up with me as needed Diagnoses: (M25.551, G89.29) Chronic right hip pain (primary encounter diagnosis) (Z96.649) S/P hip hemiarthroplasty Diabetes: Steph has been diagnosed with Type 2 Diabetes. His last Hemoglobin A1C was 8.1 (03/23/2023). Pt is followed by Olga Styles for Type 2 Diabetes - last seen on 04/12/2023. Consult to the Endocrinology and Metabolic [place] (JOSIE) recommended prior to surgery. Area Deprivation Index (SONY) 04/16/2022 03/09/2023 SONY Score National Score 68 70 Patient Health Questionnaire (PHQ-9) 03/18/2024 05/16/2024 06/12/2024 PHQ-9 PHQ-2 Score 0 0 0 0 (0-4) minimal depression, (5-9) mild depression, (10-14) moderate depression, (15-19) moderately severe depression, (20-27) severe depression Bone Density Risk Screen Steph Baumann is at risk for bone loss. His last bone densitometry on file was completed on 11/01/2023. Risk Factors: Dx of Osteoporosis Use of Proton Pump Inhibitors History of falls Dx of Chronic Kidney Disease (CKD) Previous cancer of bone diagnosis Prednisone or use of systemic steroids Chronic Malnutrition Chronic Liver Disease Additional Risk Factors Obstructive Sleep Apnea (ALBINO) Coagulation Latest Ref Rng AND Units 09/02/2022 03/09/2023 02/15/2024 Coag/Hyper Coag Labs PT INR 0.9 - 1.3 1.2 1.3 1.3 PT Sec <13.1 sec 12.7 13.7 12.7 Latest Ref Rng AND Units 09/02/2022 03/09/2023 02/15/2024 Hemoglobin and Platelets Hemoglobin 13.0 - 17.0 g/dL 13.0 12.3 13.4 Platele (more content not included)... [facility] Ammoniaon 2024 Ammonia (P) [Moles/Vol] 19.0 umol/L [facility] Comment on above: Order Comment: 302-1 Performed By: #### L [id number] #### [facility] [address] [place], [address] Srinivasan 05-23-2024 MARIE Telephone (SHERWIN) -- STEPH BAUMANN ([id number]) 1950 M Date Time Provider Department 05/23/24 IGNACIO SERRANO During your visit today, we recorded the following information about you: Corrine Bales, TISH 05/23/2024 2:53 PM Signed Idalia from call line had this patient on line stating they could not make their 2:40 appt because their transportation cancelled ([place] He was wondering if they could just do a virtual visit today. I got a phone # and called back and spoke with the P.O.A. for the patient and let her know that Dr would do a virtual appt but they would still need to come into the office so he could see him.(New patient). The POA decided it was best to reschedule so we got patient an appoint 06/13 at 2:20 pm. POA is hoping the transportation company comes thru with the sweet pickle maker. Allergies As of Date: 05/23/2024 Noted Allergy Reaction METFORMIN 12/12/2020 6 - Diarrhea Comments: Even low dose caused diarrhea OXYCODONE-ACETAMINOPHEN 09/08/2023 16 - Unknown Date Reviewed: 05/01/2024 Reviewed by: Ashley Jin, TISH - Fully Assessed Reason for Visit: Appointment [[id number]] Prescriptions as of 05/23/2024 - denosumab (PROLIA) 60 mg/mL Injection to be administered once every 6 months - lactulose 20 gram/30 mL solution Take 45 mL by mouth three times a day. - lisinopril (ZESTRIL) 5 mg tablet Take 5 mg by mouth once daily. - insulin aspart U-100 (NOVOLOG) 100 unit/mL Inject subcutaneously three times a day before meals. - aluminum-magnesium hydroxide-simethicone (MAALOX,MYLANTA,MAG-AL PLUS) 200-200-20 mg/5 mL suspension Take 30 mL by mouth every 4 hours as needed. - bisacodyl (DULCOLAX) 10 mg supp 10 mg by RECTAL route once daily as needed for constipation. - sodium phosphate,mono-dibasic (FLEET ENEMA RECTAL) 1 Enema by RECTAL route as needed. - dextrose (GLUCOSE GEL ORAL) Take 1 Dose by mouth as needed. - GUAIFENESIN ORAL Take 10 mL by mouth every 4 hours as needed. - magnesium hydroxide (MILK OF MAGNESIA ORAL) Take 30 mL by mouth as needed. - methyl salicylate-menthol (MUSCLE RUB) 15-10 % topical cream Apply to right hip topically in the morning for pain. - potassium chloride ER (KLOR-CON) 20 mEq tablet Take 20 mEq by mouth once daily. - cholecalciferol (VITAMIN D-3) 50 mcg (2,000 unit) tablet Take 2,000 Units by mouth once daily. - sertraline (ZOLOFT) 50 mg tablet Take 50 mg by mouth once daily. - acetaZOLAMIDE (DIAMOX) 250 mg tablet Take 250 mg by mouth two times a day. - docusate sodium (COLACE) 100 mg capsule Take 100 mg by mouth two times a day. - pantoprazole DR (PROTONIX) 40 mg tablet Take 40 mg by mouth two times a day. - dulaglutide (TRULICITY) 3 mg/0.5 mL pen injector Inject 3 mg subcutaneously one time a week. Tuesday - rifAXIMin (XIFAXAN) 550 mg tablet TWICE A DAY - GLUCAGON EMERGENCY KIT, HUMAN, INJECTION Inject 1 mL subcutaneously as needed. - sodium,potassium phosphates (POTASSIUM AND SODIUM PHOSPHATES ORAL) Take by mouth. 280-160-250 MG one packet by mouth three times daily - Sennosides 8.6 mg cap Take 17.2 mg by mouth daily at bedtime. - INSULIN LISPRO SUBCUTANEOUS Inject subcutaneously. Per sliding scale - traMADol (ULTRAM) 50 mg tablet Take 50 mg by mouth every 8 hours as needed for pain. Take one tablet by mouth every eight hours as needed for pain - spironolactone (ALDACTONE) 25 mg tablet Take 25 mg by mouth once daily. - calcium carbonate (CALCIUM 300 ORAL) Take 1 tablet by mouth once daily. - iron ps complex/B12/folic acid (FERREX 150 FORTE ORAL) Take 1 tablet by mouth once daily. - carvedilol (COREG) 3.125 mg tablet Take 1 tablet by mouth twice daily. - ondansetron orally disintegrating (ZOFRAN ODT) 4 mg disintegrating tablet Take 1 tablet by mouth every 8 hours as needed for nausea/vomiting. - baclofen (LIORESAL) 20 mg tablet Take 10 mg by mouth three times a day. - apixaban (ELIQUIS) 5 mg tab(s) Take [...] (SINEMET 25-100) 25-100 mg per tablet Take 2 tablets by mouth three times a day. - loratadine (CLARITIN) 10 mg tablet Take [...] Inhalation as instructed once daily. - bicalutamide (CASOD (more content not included)... [facility] No Panel Informationon 03-14 IMPRESSION: PROBABLE FINE MICRONODULARITY OF LIVER, SUGGESTING CIRRHOSIS. NO FOCAL SUSPICIOUS HEPATIC LESION. CHOLELITHIASIS AND GALLBLADDER SLUDGE. NO BILE DUCT DILATION. NO SPLENOMEGALY. Psychiatric Arnp: LAVINIA Transcribe Date/Time: Mar 14 2024 10:54A Dictated by : PHILIP OROURKE MD This examination was interpreted and the report reviewed and electronically signed by: PHILIP OROURKE MD on Mar 14 2024 11:00AM [facility] DIVISION OF RADIOLOGY No Panel InformationOrdered By: [facility] Provider on 03-14-2024 [facility] US ABD SPLEEN - NBon 024 * * *Final Report* * * DATE OF EXAM: Mar 14 2024 10:33AM [facility] 1232 - US ABD SPLEEN -NB / PROCEDURE REASON: multiple diagnoses * * * * Physician Interpretation * * * * EXAMINATION: RIGHT UPPER QUADRANT AND SPLEEN ULTRASOUND CLINICAL HISTORY: Liver disease, cirrhosis. TECHNIQUE: Sonography of the right upper quadrant and spleen was performed. Images were obtained and stored in a permanent archive. MQ: URUQ_2 COMPARISON: 03/09/2023, 01/08/2021 RESULT: Pancreas: Entire gland obscured by overlying bowel gas. Liver: Echotexture: Homogeneous Echogenicity: Normal Surface contour: Probable fine micronodularity, best seen on cine imaging. Lesions: 0.5 cm echogenic lesion right hepatic lobe with preserved through transmission, perhaps a small hemangioma; this is unchanged across multiple prior studies with long-term temporal stability indicative of nonaggressive process. No new suspicious hepatic lesion. Biliary: No intrahepatic biliary duct dilation. CBD: 0.3 at the hilum. Gallbladder: Normal caliber -Contents: Cholelithiasis present. There is dependent gallbladder sludge as well. -Wall: Normal -Other: No pericholecystic fluid. Right Kidney: No hydronephrosis. Ascites: None. Spleen: The length of the spleen is 12.7 cm. There are no splenic lesions. DIVISION OF RADIOLOGY Provider, [facility] - 03/14/2024 * * *Final Report* * * DATE OF EXAM: Mar 14 2024 10:33AM [facility] 1232 - US ABD SPLEEN -NB / PROCEDURE REASON: multiple diagnoses * * * * Physician Interpretation * * * * EXAMINATION: RIGHT UPPER QUADRANT AND SPLEEN ULTRASOUND CLINICAL HISTORY: Liver disease, cirrhosis. TECHNIQUE: Sonography of the right upper quadrant and spleen was performed. Images were obtained and stored in a permanent archive. MQ: URUQ_2 COMPARISON: 03/09/2023, 01/08/2021 RESULT: Pancreas: Entire gland obscured by overlying bowel gas. Liver: Echotexture: Homogeneous Echogenicity: Normal Surface contour: Probable fine micronodularity, best seen on cine imaging. Lesions: 0.5 cm echogenic lesion right hepatic lobe with preserved through transmission, perhaps a small hemangioma; this is unchanged across multiple prior studies with long-term temporal stability indicative of nonaggressive process. No new suspicious hepatic lesion. Biliary: No intrahepatic biliary duct dilation. CBD: 0.3 at the hilum. Gallbladder: Normal caliber -Contents: Cholelithiasis present. There is dependent gallbladder sludge as well. -Wall: Normal -Other: No pericholecystic fluid. Right Kidney: No hydronephrosis. Ascites: None. Spleen: The length of the spleen is 12.7 cm. There are no splenic lesions. IMPRESSION IMPRESSION: PROBABLE FINE MICRONODULARITY OF LIVER, SUGGESTING CIRRHOSIS. NO FOCAL SUSPICIOUS HEPATIC LESION. CHOLELITHIASIS AND GALLBLADDER SLUDGE. NO BILE DUCT DILATION. NO SPLENOMEGALY. Psychiatric Arnp: PSCB Transcribe Date/Time: Mar 14 2024 10:54A Dictated by : PHILIP OROURKE MD This examination was interpreted and the report reviewed and electronically signed by: PHILIP OROURKE MD on Mar 14 2024 11:00AM EST [facility] Radiology Study observation (narrative) [facility] US Abdomen RUQon 03-14-2024 * * *Final Report* * * DATE OF EXAM: Mar 14 2024 10:30AM [facility] 1032 - US ABD RIGHT UPPER QUADRANT / PROCEDURE REASON: multiple diagnoses * * * * Physician Interpretation * * * * EXAMINATION: RIGHT UPPER QUADRANT AND SPLEEN ULTRASOUND CLINICAL HISTORY: Liver disease, cirrhosis. TECHNIQUE: Sonography of the right upper quadrant and spleen was performed. Images were obtained and stored in a permanent archive. MQ: URUQ_2 COMPARISON: 03/09/2023, 01/08/2021 RESULT: Pancreas: Entire gland obscured by overlying bowel gas. Liver: Echotexture: Homogeneous Echogenicity: Normal Surface contour: Probable fine micronodularity, best seen on cine imaging. Lesions: 0.5 cm echogenic lesion right hepatic lobe with preserved through transmission, perhaps a small hemangioma; this is unchanged across multiple prior studies with long-term temporal stability indicative of nonaggressive process. No new suspicious hepatic lesion. Biliary: No intrahepatic biliary duct dilation. CBD: 0.3 at the hilum. Gallbladder: Normal caliber -Contents: Cholelithiasis present. There is dependent gallbladder sludge as well. -Wall: Normal -Other: No pericholecystic fluid. Right Kidney: No hydronephrosis. Ascites: None. Spleen: The length of the spleen is 12.7 cm. There are no splenic lesions. DIVISION OF RADIOLOGY Provider, [facility] - 03/14/2024 * * *Final Report* * * DATE OF EXAM: Mar 14 2024 10:30AM [facility] 1032 - US ABD RIGHT UPPER QUADRANT / PROCEDURE REASON: multiple diagnoses * * * * Physician Interpretation * * * * EXAMINATION: RIGHT UPPER QUADRANT AND SPLEEN ULTRASOUND CLINICAL HISTORY: Liver disease, cirrhosis. TECHNIQUE: Sonography of the right upper quadrant and spleen was performed. Images were obtained and stored in a permanent archive. MQ: URUQ_2 COMPARISON: 03/09/2023, 01/08/2021 RESULT: Pancreas: Entire gland obscured by overlying bowel gas. Liver: Echotexture: Homogeneous Echogenicity: Normal Surface contour: Probable fine micronodularity, best seen on cine imaging. Lesions: 0.5 cm echogenic lesion right hepatic lobe with preserved through transmission, perhaps a small hemangioma; this is unchanged across multiple prior studies with long-term temporal stability indicative of nonaggressive process. No new suspicious hepatic lesion. Biliary: No intrahepatic biliary duct dilation. CBD: 0.3 at the hilum. Gallbladder: Normal caliber -Contents: Cholelithiasis present. There is dependent gallbladder sludge as well. -Wall: Normal -Other: No pericholecystic fluid. Right Kidney: No hydronephrosis. Ascites: None. Spleen: The length of the spleen is 12.7 cm. There are no splenic lesions. IMPRESSION IMPRESSION: PROBABLE FINE MICRONODULARITY OF LIVER, SUGGESTING CIRRHOSIS. NO FOCAL SUSPICIOUS HEPATIC LESION. CHOLELITHIASIS AND GALLBLADDER SLUDGE. NO BILE DUCT DILATION. NO SPLENOMEGALY. Psychiatric Arnp: [facility] Transcribe Date/Time: Mar 14 2024 10:54A Dictated by : PHILIP OROURKE MD This examination was interpreted and the report reviewed and electronically signed by: PHILIP OROURKE MD on Mar 14 2024 11:00AM EST [facility] Radiology Study observation (narrative) [facility] Basophil percentageOrdered B y: Elisa Narvaez on 01-19-2024 Ammonia (P) [Moles/Vol] 42.0 umol/L 11-32 [facility] Chloride [Moles/Vol] 114 mmol/L 98-107 [facility] Glucose [Mass/Vol] 107 mg/dL 74-106 [facility] Comment on above: Fasting Glucose resu lt from 100 to 125 mg/dL suggests IMPAIRED HOMEOSTASIS per A.D.A. criteria. Potassium [Moles/Vol] 3.7 mmol/L 3.5-5.1 [facility] Sodium [Moles/Vol] 144 mmol/L 136-145 [facility] Laboratory - Chemistry and C hemistry - challengeOrdered By: Elisa Narvaez on 01-19-2024 CO2 [Moles/Vol] 23.0 mmol/L 21.0-32.0 [facility] Urea nitrogen/Creatinine [Mass ratio] 21.0 mg/mg 10-20 [facility] No Panel InformationOrdered By: Elisa Narvaez on 01-19-2024 Estimated GFR (MDRD) Amer 74 mL/min >60 [facility] Comment on above: GFR Calc Estimated GFR (MDRD) Non-Af Amer 61 mL/min >60 [facility] Comment on above: Non- GFR Calc Serum or plasma calcium aby urement (mass/volume)Ordered By: Elisa Narvaez on 01-19-2024 Calcium [Mass/Vol] 9.0 mg/dL 8.5-10.1 [facility] Serum or plasma creatinine m easurement (mass/volume)Ordered By: Elisa Narvaez on 01-19-2024 Creatinine [Mass/Vol] 1.24 mg/dL 0.70-1.30 [facility] Comment on above: The validity of the calculated GFR & GFRAA in patients over 70 years has not been determined. Clinical correlation is essential. Serum or plasma urea nitroge n measurement (mass/volume)Ordered By: Elisa Narvaez on 01-19-2024 Urea nitrogen [Mass/Vol] 26 mg/dL 7-18 [facility] Thin prep Papanicolaou smear with manual screeningOrdered By: Elisa Narvaez on 01-19-2024 Thin prep Papanicolaou smear with manual screening 7 5-15 [facility] Absolute lymphocyte countOrd ered By: Elisa Narvaez on 01-11-2024 Lymphocytes Auto (Unsp spec) [#/Vol] 0.61 10*3/uL 0.83-4.51 [facility] Automated lymphocyte count a s percentage of total leukocytesOrdered By: Elisa Narvaez on 01-11-2024 Lymphocytes/100 WBC Auto (Unsp spec) 8.8 % 19-41 [facility] Basophil percentageOrdered B y: Elisa Narvaez on 01-11-2024 Basophils/100 WBC (Bld) 0.6 % 0-1 [facility] Chloride [Moles/Vol] 113 mmol/L 98-107 [facility] Eosinophils/100 WBC (Bld) 4.3 % 0-5 [facility] Glucose [Mass/Vol] 115 mg/dL 74-106 [facility] Comment on above: Fasting Glucose resu lt from 100 to 125 mg/dL suggests IMPAIRED HOMEOSTASIS per A.D.A. criteria. Hemoglobin (Bld) [Mass/Vol] 11.6 g/dL 13.0-16.5 [facility] Monocytes/100 WBC (Bld) 6.2 % 0-10 [facility] Neutrophils (Bld) [#/Vol] 5.5 10*3/uL 2.0-7.7 [facility] Neutrophils/100 WBC (Bld) 79.2 % 47-70 [facility] Potassium [Moles/Vol] 3.3 mmol/L 3.5-5.1 [facility] Sodium [Moles/Vol] 144 mmol/L 136-145 [facility] WBC (Bld) [#/Vol] 7.0 10*3/uL 4.4-11.0 [facility] Determination of erythrocyte mean corpuscular volume (MCV)Ordered By: Elisa Narvaez on 01-11-2024 MCV (RBC) [Entitic vol] 97.8 fL 80-94 [facility] Erythrocyte distribution wid th ratioOrdered By: Elisa Narvaez on 01-11-2024 Erythrocyte distribution width (RBC) [Ratio] 14.9 % 11.6-14.6 [facility] Erythrocyte distribution wid th standard deviationOrdered By: Elisaely Narvaez on 01-11-2024 Erythrocyte distribution width (RBC) [Entitic vol] 53.7 fL 35.1-43.9 [facility] Hematocrit Auto (Bld) [Volum e fraction]Ordered By: Elisa Narvaez on 01-11-2024 Hematocrit (Bld) [Volume fraction] 35.6 % 40-54 [facility] Immature granulocytes/100 WB C Auto (Bld)Ordered By: Elisa Narvaez on 01-11-2024 Immature granulocytes/100 WBC (Bld) 0.900 % 0.0-0.9 [facility] Comment on above: IG% - Immature Granu locytes (promyelocytes, myelocytes and metamyelocytes) > 1% indicates that a LEFT SHIFT is Present. Laboratory - Chemistry and C hemistry - challengeOrdered By: Elisa Narvaez on 01-11-2024 CO2 [Moles/Vol] 23.0 mmol/L 21.0-32.0 [facility] Urea nitrogen/Creatinine [Mass ratio] 11.9 mg/mg 10-20 [facility] - Hematology and Cell countsOrdered By: Elisa Narvaez on 01-11-2024 MCH (RBC) [Entitic mass] 31.9 pg 27.0-32.0 [facility] MCHC (RBC) [Mass/Vol] 32.6 g/dL 32-36 [facility] Nucleated RBC/100 WBC (Bld) [Ratio] 0 % 0-5 [facility] Platelet mean volume (Bld) [Entitic vol] 12.2 fL 6.2-12.0 [facility] Platelets (Bld) [#/Vol] 132 10*3/uL 150-450 [facility] No Panel InformationOrdered By: Elisa Narvaez on 01-11-2024 Estimated GFR (MDRD) Amer 63 mL/min >60 [facility] Comment on above: GFR Calc Estimated GFR (MDRD) Non-Af Amer 52 mL/min >60 [facility] Comment on above: Non- GFR Calc RBC Auto (Bld) [#/Vol]Ordere d By: Elisa Narvaez on 01-11-2024 RBC (Bld) [#/Vol] 3.64 10*6/uL 4.6-6.2 [facility] Serum or plasma calcium aby urement (mass/volume)Ordered By: Elisa Narvaez on 01-11-2024 Calcium [Mass/Vol] 8.7 mg/dL 8.5-10.1 [facility] Serum or plasma creatinine m easurement (mass/volume)Ordered By: Elisa Narvaez on 01-11-2024 Creatinine [Mass/Vol] 1.43 mg/dL 0.70-1.30 [facility] Comment on above: The validity of the calculated GFR & GFRAA in patients over 70 years has not been determined. Clinical correlation is essential. Serum or plasma urea nitroge n measurement (mass/volume)Ordered By: Elisa Narvaez on 01-11-2024 Urea nitrogen [Mass/Vol] 17 mg/dL 7-18 [facility] Thin prep Papanicolaou smear with manual screeningOrdered By: Elisa Narvaez on 01-11-2024 Thin prep Papanicolaou smear with manual screening 8 5-15 [facility] Whole blood hemoglobin A1c/t otal hemoglobin ratio (mass fraction)Ordered By: Elisa Narvaez on 01-11-2024 HbA1c (Bld) [Mass fraction] 6.2 % 3.8-5.6 [facility] Comment on above: Normal < 5.7 % Predi abetic 5.7 - 6.4 % Diabetic >or= 6.5 % Please note range changes. Basophil percentageOrdered B y: Elisa Narvaez on 01-06-2024 Basophil percentage 3.6 mg/dL 2.5-4.9 [facility] Basophil percentageOrdered B y: Elisa Narvaez on 12-30-2023 Basophil percentage 3.5 mg/dL 2.5-4.9 [facility] Laboratory - Chemistry and C hemistry - challengeOrdered By: Elisa Narvaez on 11-14-2023 Cobalamin (Vitamin B12) [Mass/Vol] 731 pg/mL 211-911 [facility] Serum or plasma folate measu rement (mass/volume)Ordered By: Elisa Narvaez on 11-14-2023 Folate [Mass/Vol] 6.10 ng/mL 3.1-55.4 [facility] Absolute lymphocyte countOrd ered By: Elisa Narvaez on 10-19-2023 Lymphocytes Auto (Unsp spec) [#/Vol] 0.45 10*3/uL 0.83-4.51 [facility] Basophil percentageOrdered B y: Elisa Narvaez on 10-19-2023 Ammonia (P) [Moles/Vol] 49.0 umol/L 11-32 [facility] Basophils/100 WBC (Bld) 0.4 % 0-1 [facility] Chloride [Moles/Vol] 115 mmol/L 98-107 [facility] Eosinophils/100 WBC (Bld) 4.9 % 0-5 [facility] Glucose [Mass/Vol] 144 mg/dL 74-106 [facility] Comment on above: Fasting Glucose resu lt greater than or equal to 126 mg/dL suggests DIABETES MELLITUS per A.D.A. criteria. Neutrophils (Bld) [#/Vol] 5.5 10*3/uL 2.0-7.7 [facility] Neutrophils/100 WBC (Bld) 81.2 % 47-70 [facility] Potassium [Moles/Vol] 3.6 mmol/L 3.5-5.1 [facility] Sodium [Moles/Vol] 141 mmol/L 136-145 [facility] WBC (Bld) [#/Vol] 6.7 10*3/uL 4.4-11.0 [facility] Blood erythrocytes count (nu mber/volume)Ordered By: Elisa Narvaez on 10-19-2023 RBC (Bld) [#/Vol] 3.65 10*6/uL 4.6-6.2 [facility] Blood hemoglobin measurement (mass/volume)Ordered By: Elisa Narvaez on 10-19-2023 Hemoglobin (Bld) [Mass/Vol] 11.5 g/dL 13.0-16.5 [facility] Blood lymphocytes/100 leukoc ytesOrdered By: Elisa Narvaez on 10-19-2023 Lymphocytes/100 WBC (Bld) 6.7 % 19-41 [facility] Blood manual differential co mment interpretation (narrative result)Ordered By: Elisa Narvaez on 10-19-2023 Manual differential comment Timur (Bld) [Interp] SCANNED [facility] Blood monocytes/100 leukocyt esOrdered By: Elisa Narvaez on 10-19-2023 Monocytes/100 WBC (Bld) 6.4 % 0-10 [facility] Blood platelet mean volumeOr dered By: Elisa Narvaez on 10-19-2023 Platelet mean volume (Bld) [Entitic vol] 11.2 fL 6.2-12.0 [facility] Determination of erythrocyte mean corpuscular volume (MCV)Ordered By: Elisa Narvaez on 10-19-2023 MCV (RBC) [Entitic vol] 101.9 fL 80-94 [facility] Hematocrit Auto (Bld) [Volum e fraction]Ordered By: Elisa Narvaez on 10-19-2023 Hematocrit (Bld) [Volume fraction] 37.2 % 40-54 [facility] Laboratory - Chemistry and C hemistry - challengeOrdered By: Elisa Narvaez on 10-19-2023 CO2 [Moles/Vol] 21.0 mmol/L 21.0-32.0 [facility] Magnesium [Mass/Vol] 2.0 mg/dL 1.6-2.6 [facility] Urea nitrogen/Creatinine [Mass ratio] 16.5 mg/mg 10-20 [facility] Laboratory - Hematology and Cell countsOrdered By: Elisa Narvaez on 10-19-2023 Erythrocyte distribution width (RBC) [Entitic vol] 55.9 fL 35.1-43.9 [facility] Erythrocyte distribution width (RBC) [Ratio] 15.0 % 11.6-14.6 [facility] Immature granulocytes/100 WBC (Bld) 0.400 % 0.0-0.9 [facility] Comment on above: IG% - Immature Granu locytes (promyelocytes, myelocytes and metamyelocytes) > 1% indicates that a LEFT SHIFT is Present. MCH (RBC) [Entitic mass] 31.5 pg 27.0-32.0 [facility] Nucleated RBC/100 WBC (Bld) [Ratio] 0 % 0-5 [facility] MCHC Auto (RBC) [Mass/Vol]Or dered By: Elisa Narvaez on 10-19-2023 MCHC (RBC) [Mass/Vol] 30.9 g/dL 32-36 [facility] No Panel InformationOrdered By: Elisa Narvaez on 10-19-2023 Estimated GFR (MDRD) Amer 76 mL/min >60 [facility] Comment on above: GFR Calc Estimated GFR (MDRD) Non-Af Amer 63 mL/min >60 [facility] Comment on above: Non- GFR Calc Platelets bldOrdered By: Dante Narvaez on 10-19-2023 Platelets (Bld) [#/Vol] 144 10*3/uL 150-450 [facility] Serum or plasma calcium aby urement (mass/volume)Ordered By: Elisa Narvaez on 10-19-2023 Calcium [Mass/Vol] 8.8 mg/dL 8.5-10.1 [facility] Serum or plasma creatinine m easurement (mass/volume)Ordered By: Elisa Narvaez on 10-19-2023 Creatinine [Mass/Vol] 1.21 mg/dL 0.70-1.30 [facility] Comment on above: The validity of the calculated GFR & GFRAA in patients over 70 years has not been determined. Clinical correlation is essential. Serum or plasma urea nitroge n measurement (mass/volume)Ordered By: Elisa Narvaez on 10-19-2023 Urea nitrogen [Mass/Vol] 20 mg/dL 7-18 [facility] Thin prep Papanicolaou smear with manual screeningOrdered By: Elisa Narvaez on 10-19-2023 Thin prep Papanicolaou smear with manual screening 5 5-15 [facility] Basophil percentageOrdered B y: Elisa Narvaez on 08-22-2023 Basophil percentage 107 mg/dL <200 [facility] Basophil percentage 91 mg/dL <199 [facility] Cholesterol [Mass/Vol] 107 mg/dL <200 [facility] Comment on above: <200 mg/dL Desirable 200-240 mg/dL Borderline >240 mg/dL High Risk Triglyceride [Mass/Vol] 91 mg/dL <199 [facility] Comment on above: The drugs N-Acetylcy steine and Metamizole may falsely depress this assay.Serum Triglycerides Reference Interval Normal <150 mg/dL Borderline high 150 - 199 mg/dL High 200 - 499 mg/dL Very High > or = 500 mg/dL Serum or plasma cholesterol in HDL measurement (mass/volume)Ordered By: Elisa Narvaez on 08-22-2023 Cholesterol in HDL [Mass/Vol] 31 mg/dL >40 [facility] Comment on above: The drugs N-Acetylcy steine and Metamizole may falsely depress this assay. Reference Range HDL <40 mg/dL Low HDL Cholesterol HDL >or= 60 mg/dL High HDL Cholesterol Serum or plasma cholesterol in VLDL measurement (mass/volume)Ordered By: Elisa Narvaez on 08-22-2023 Cholesterol in VLDL [Mass/Vol] 18 mg/dL 5-40 [facility] Serum or plasma low density lipoprotein (LDL) cholesterol measurement (mass/volume)Ordered By: Elisa Narvaez on 08-22-2023 Cholesterol in LDL [Mass/Vol] 58 mg/dL 0-130 [facility] No Panel InformationOrdered By: Elisa Narvaez on 08-08-2023 Urine Microalbumin/Creatinine Ratio 452.1 mg/g CRE <30 [facility] 452.1 mg/g CRE <30 [facility] Thin prep Papanicolaou smear with manual screeningOrdered By: Elisa Narvaez on 08-08-2023 Thin prep Papanicolaou smear with manual screening 538.0 mg/L NO RANGE EST. [facility] Urine creatinine measurement (mass/volume)Ordered By: Elisa Narvaez on 08-08-2023 Creatinine (U) [Mass/Vol] 119.00 mg/dL NO RANGE EST. [facility] Basophil percentageOrdered B y: [facility] on 08-05-2023 Basophil percentage 122 mg/dL 74-106 [facility] Basophil percentage 6.4 g/dL 6.4-8.2 [facility] Basophil percentage 0.40 mg/dL 0.20-1.00 [facility] Basophil percentage 140 mmol/L 136-145 [facility] Basophil percentage 4.1 mmol/L 3.5-5.1 [facility] Basophil percentage 115 mmol/L 98-107 [facility] Basophils (Bld) [#/Vol] 4.0 10*3/uL 4.4-11.0 [facility] Bilirubin [Mass/Vol] 0.40 mg/dL 0.20-1.00 [facility] Comment on above: For patients on eltr ombopag therapy, use of Dimension [place] TBIL is not recommended. Chloride [Moles/Vol] 115 mmol/L 98-107 [facility] Glucose [Mass/Vol] 122 mg/dL 74-106 [facility] Comment on above: Fasting Glucose resu lt from 100 to 125 mg/dL suggests IMPAIRED HOMEOSTASIS per A.D.A. criteria. Potassium [Moles/Vol] 4.1 mmol/L 3.5-5.1 [facility] Protein [Mass/Vol] 6.4 g/dL 6.4-8.2 [facility] Sodium [Moles/Vol] 140 mmol/L 136-145 [facility] WBC (Bld) [#/Vol] 4.0 10*3/uL 4.4-11.0 [facility] Blood erythrocytes count (nu mber/volume)Ordered By: [facility] on 08-05-2023 RBC (Bld) [#/Vol] 3.76 10*6/uL 4.6-6.2 [facility] Blood hemoglobin measurement (mass/volume)Ordered By: [facility] on 08-05-2023 Hemoglobin (Bld) [Mass/Vol] 12.0 g/dL 13.0-16.5 [facility] Blood platelet mean volumeOr dered By: [facility] on 08-05-2023 Platelet mean volume (Bld) [Entitic vol] 11.9 fL 6.2-12.0 [facility] Determination of erythrocyte mean corpuscular volume (MCV)Ordered By: [facility] on 08-05-2023 MCV (RBC) [Entitic vol] 102.1 fL 80-94 [facility] Hematocrit Auto (Bld) [Volum e fraction]Ordered By: [facility] on 08-05-2023 Hematocrit (Bld) [Volume fraction] 38.4 % 40-54 [facility] INR in Blood by Coagulation assayOrdered By: [facility] on 08-05-2023 INR Coag (Bld) [Relative time] 1.7 {INR} [facility] Laboratory - Chemistry and C hemistry - challengeOrdered By: [facility] on 08-05-2023 ALP [Catalytic activity/Vol] 99 U/L 45-117 [facility] ALT [Catalytic activity/Vol] 17 U/L 16-61 [facility] CO2 [Moles/Vol] 23.0 mmol/L 21.0-32.0 [facility] Globulin (S) [Mass/Vol] 3.5 g/dL 2.2-4.2 [facility] Urea nitrogen/Creatinine [Mass ratio] 17.5 mg/mg 10-20 [facility] Laboratory - CoagulationOrde red By: [facility] on 08-05-2023 aPTT Coag (Bld) [Time] 34.6 s 24.1-36.2 [facility] PT Coag (PPP) [Time] 20.1 s 11.7-14.9 [facility] Laboratory - Hematology and Cell countsOrdered By: [facility] on 08-05-2023 Erythrocyte distribution width (RBC) [Entitic vol] 52.3 fL 35.1-43.9 [facility] Erythrocyte distribution width (RBC) [Ratio] 13.8 % 11.6-14.6 [facility] MCH (RBC) [Entitic mass] 31.9 pg 27.0-32.0 [facility] MCHC Auto (RBC) [Mass/Vol]Or dered By: [facility] on 08-05-2023 MCHC (RBC) [Mass/Vol] 31.3 g/dL 32-36 [facility] No Panel InformationOrdered By: [facility] on 08-05-2023 Estimated GFR (MDRD) Amer 81 mL/min >60 [facility] Comment on above: GFR Calc Estimated GFR (MDRD) Non-Af Amer 67 mL/min >60 [facility] Comment on above: Non- GFR Calc 31.9 pg 27.0-32.0 [facility] 13.8 % 11.6-14.6 [facility] 52.3 fl 35.1-43.9 [facility] 20.1 SECONDS 11.7-14.9 [facility] 34.6 Seconds 24.1-36.2 [facility] 67 mL/min >60 [facility] 81 mL/min >60 [facility] 17.5 RATIO 10-20 [facility] 3.5 g/dL 2.2-4.2 [facility] 99 U/L 45-117 [facility] 17 U/L 16-61 [facility] 23.0 mmol/L 21.0-32.0 [facility] Platelets bldOrdered By: [facility] on 08-05-2023 Platelets (Bld) [#/Vol] 128 10*3/uL 150-450 [facility] Serum or plasma albumin aby urement (mass/volume)Ordered By: [facility] on 08-05-2023 Albumin [Mass/Vol] 2.9 g/dL 3.2-5.0 [facility] Serum or plasma albumin/glob ulin mass ratioOrdered By: [facility] on 08-05-2023 Albumin/Globulin [Mass ratio] 0.8 {ratio} 0.9-2.4 [facility] Serum or plasma calcium aby urement (mass/volume)Ordered By: [facility] on 08-05-2023 Calcium [Mass/Vol] 8.5 mg/dL 8.5-10.1 [facility] Serum or plasma creatinine m easurement (mass/volume)Ordered By: [facility] on 08-05-2023 Creatinine [Mass/Vol] 1.14 mg/dL 0.70-1.30 [facility] Comment on above: The validity of the calculated GFR & GFRAA in patients over 70 years has not been determined. Clinical correlation is essential. Serum or plasma urea nitroge n measurement (mass/volume)Ordered By: [facility] on 08-05-2023 Urea nitrogen [Mass/Vol] 20 mg/dL 7-18 [facility] Thin prep Papanicolaou smear with manual screeningOrdered By: [facility] on 08-05-2023 Thin prep Papanicolaou smear with manual screening 13 U/L 15-37 [facility] Thin prep Papanicolaou smear with manual screening 2 5-15 [facility] Basophil percentageOrdered B y: Elisa Narvaez on 07-21-2023 Ammonia (P) [Moles/Vol] 41.0 umol/L [facility] Basophil percentage 41.0 umol/L [facility] Basophil percentageOrdered B y: Elisa Narvaez on 07-19-2023 Ammonia (P) [Moles/Vol] 44.0 umol/L [facility] Basophil percentage 44.0 umol/L [facility] Absolute lymphocyte countOrd ered By: Elisa Narvaez on 07-15-2023 Lymphocytes Auto (Unsp spec) [#/Vol] 0.40 10*3/uL 0.83-4.51 [facility] Basophil percentageOrdered B y: Elisa Narvaez on 07-15-2023 Basophil percentage 122 mg/dL 74-106 [facility] Basophil percentage 141 mmol/L 136-145 [facility] Basophil percentage 4.0 mmol/L 3.5-5.1 [facility] Basophil percentage 115 mmol/L 98-107 [facility] Basophils (Bld) [#/Vol] 5.8 10*3/uL 4.4-11.0 [facility] Basophils (Bld) [#/Vol] 4.7 10*3/uL 2.0-7.7 [facility] Basophils/100 WBC (Bld) 80.9 % 47-70 [facility] Basophils/100 WBC (Bld) 4.8 % 0-5 [facility] Basophils/100 WBC (Bld) 0.5 % 0-1 [facility] Chloride [Moles/Vol] 115 mmol/L 98-107 [facility] Eosinophils/100 WBC (Bld) 4.8 % 0-5 [facility] Glucose [Mass/Vol] 122 mg/dL 74-106 [facility] Comment on above: Fasting Glucose resu lt from 100 to 125 mg/dL suggests IMPAIRED HOMEOSTASIS per A.D.A. criteria. Neutrophils (Bld) [#/Vol] 4.7 10*3/uL 2.0-7.7 [facility] Neutrophils/100 WBC (Bld) 80.9 % 47-70 [facility] Potassium [Moles/Vol] 4.0 mmol/L 3.5-5.1 [facility] Sodium [Moles/Vol] 141 mmol/L 136-145 [facility] WBC (Bld) [#/Vol] 5.8 10*3/uL 4.4-11.0 [facility] Blood erythrocytes count (nu mber/volume)Ordered By: Elisa Narvaez on 07-15-2023 RBC (Bld) [#/Vol] 3.93 10*6/uL 4.6-6.2 [facility] Blood hemoglobin measurement (mass/volume)Ordered By: Elisa Narvaez on 07-15-2023 Hemoglobin (Bld) [Mass/Vol] 12.7 g/dL 13.0-16.5 [facility] Blood lymphocytes/100 leukoc ytesOrdered By: Elisa Narvaez on 07-15-2023 Lymphocytes/100 WBC (Bld) 6.9 % 19-41 [facility] Blood monocytes/100 leukocyt esOrdered By: Elisa Narvaez on 07-15-2023 Monocytes/100 WBC (Bld) 6.4 % 0-10 [facility] Blood platelet mean volumeOr dered By: Elisa Narvaez on 07-15-2023 Platelet mean volume (Bld) [Entitic vol] 11.2 fL 6.2-12.0 [facility] Determination of erythrocyte mean corpuscular volume (MCV)Ordered By: Elisa Narvaez on 07-15-2023 MCV (RBC) [Entitic vol] 100.3 fL 80-94 [facility] Hematocrit Auto (Bld) [Volum e fraction]Ordered By: Elisa Narvaez on 07-15-2023 Hematocrit (Bld) [Volume fraction] 39.4 % 40-54 [facility] Laboratory - Chemistry and C hemistry - challengeOrdered By: Elisaely Narvaez on 07-15-2023 CO2 [Moles/Vol] 21.0 mmol/L 21.0-32.0 [facility] Magnesium [Mass/Vol] 2.3 mg/dL 1.6-2.6 [facility] Urea nitrogen/Creatinine [Mass ratio] 14.7 mg/mg 10-20 [facility] - Hematology and Cell countsOrdered By: Elisa Narvaez on 07-15-2023 Erythrocyte distribution width (RBC) [Entitic vol] 55.5 fL 35.1-43.9 [facility] Erythrocyte distribution width (RBC) [Ratio] 14.9 % 11.6-14.6 [facility] Immature granulocytes/100 WBC (Bld) 0.500 % 0.0-0.9 [facility] Comment on above: IG% - Immature Granu locytes (promyelocytes, myelocytes and metamyelocytes) > 1% indicates that a LEFT SHIFT is Present. MCH (RBC) [Entitic mass] 32.3 pg 27.0-32.0 [facility] Nucleated RBC/100 WBC (Bld) [Ratio] 0 % 0-5 [facility] MCHC Auto (RBC) [Mass/Vol]Or dered By: Elisa Narvaez on 07-15-2023 MCHC (RBC) [Mass/Vol] 32.2 g/dL 32-36 [facility] No Panel InformationOrdered By: Elisa Narvaez on 07-15-2023 Estimated GFR (MDRD) Amer 80 mL/min >60 [facility] Comment on above: GFR Calc Estimated GFR (MDRD) Non-Af Amer 66 mL/min >60 [facility] Comment on above: Non- GFR Calc 32.3 pg 27.0-32.0 [facility] 14.9 % 11.6-14.6 [facility] 55.5 fl 35.1-43.9 [facility] 0.500 % 0.0-0.9 [facility] 0 % 0-5 [facility] 66 mL/min >60 [facility] 80 mL/min >60 [facility] 14.7 RATIO 10-20 [facility] 2.3 mg/dL 1.6-2.6 [facility] 21.0 mmol/L 21.0-32.0 [facility] Platelets bldOrdered By: Dante Narvaez on 07-15-2023 Platelets (Bld) [#/Vol] 134 10*3/uL 150-450 [facility] Serum or plasma calcium aby urement (mass/volume)Ordered By: Elisa Narvaez on 07-15-2023 Calcium [Mass/Vol] 8.9 mg/dL 8.5-10.1 [facility] Serum or plasma creatinine m easurement (mass/volume)Ordered By: Elisa Narvaez on 07-15-2023 Creatinine [Mass/Vol] 1.16 mg/dL 0.70-1.30 [facility] Comment on above: The validity of the calculated GFR & GFRAA in patients over 70 years has not been determined. Clinical correlation is essential. Serum or plasma urea nitroge n measurement (mass/volume)Ordered By: Elisa Narvaez on 07-15-2023 Urea nitrogen [Mass/Vol] 17 mg/dL 7-18 [facility] Thin prep Papanicolaou smear with manual screeningOrdered By: Elisa Narvaez on 07-15-2023 Thin prep Papanicolaou smear with manual screening 5 5-15 [facility] Absolute lymphocyte countOrd ered By: Elisa Narvaez on 07-08-2023 Lymphocytes Auto (Unsp spec) [#/Vol] 0.47 10*3/uL 0.83-4.51 [facility] Basophil percentageOrdered B y: Elisa Narvaez on 07-08-2023 Basophil percentage 156 mg/dL 74-106 [facility] Basophil percentage 136 mmol/L 136-145 [facility] Basophil percentage 4.4 mmol/L 3.5-5.1 [facility] Basophil percentage 109 mmol/L 98-107 [facility] Basophils (Bld) [#/Vol] 7.4 10*3/uL 4.4-11.0 [facility] Basophils (Bld) [#/Vol] 6.1 10*3/uL 2.0-7.7 [facility] Basophils/100 WBC (Bld) 82.6 % 47-70 [facility] Basophils/100 WBC (Bld) 3.9 % 0-5 [facility] Basophils/100 WBC (Bld) 0.8 % 0-1 [facility] Chloride [Moles/Vol] 109 mmol/L 98-107 [facility] Eosinophils/100 WBC (Bld) 3.9 % 0-5 [facility] Glucose [Mass/Vol] 156 mg/dL 74-106 [facility] Comment on above: Fasting Glucose resu lt greater than or equal to 126 mg/dL suggests DIABETES MELLITUS per A.D.A. criteria. Neutrophils (Bld) [#/Vol] 6.1 10*3/uL 2.0-7.7 [facility] Neutrophils/100 WBC (Bld) 82.6 % 47-70 [facility] Potassium [Moles/Vol] 4.4 mmol/L 3.5-5.1 [facility] Sodium [Moles/Vol] 136 mmol/L 136-145 [facility] WBC (Bld) [#/Vol] 7.4 10*3/uL 4.4-11.0 [facility] Blood erythrocytes count (nu mber/volume)Ordered By: Elisa Narvaez on 07-08-2023 RBC (Bld) [#/Vol] 3.97 10*6/uL 4.6-6.2 [facility] Blood hemoglobin measurement (mass/volume)Ordered By: Elisa Narvaez on 07-08-2023 Hemoglobin (Bld) [Mass/Vol] 12.7 g/dL 13.0-16.5 [facility] Blood lymphocytes/100 leukoc ytesOrdered By: Elisaely Narvaez on 07-08-2023 Lymphocytes/100 WBC (Bld) 6.3 % 19-41 [facility] Blood monocytes/100 leukocyt esOrdered By: Elisa Narvaez on 07-08-2023 Monocytes/100 WBC (Bld) 5.6 % 0-10 [facility] Blood platelet mean volumeOr dered By: Elisa Narvaez on 07-08-2023 Platelet mean volume (Bld) [Entitic vol] 12.1 fL 6.2-12.0 [facility] Determination of erythrocyte mean corpuscular volume (MCV)Ordered By: Elisa Narvaez on 07-08-2023 MCV (RBC) [Entitic vol] 103.0 fL 80-94 [facility] Hematocrit Auto (Bld) [Volum e fraction]Ordered By: Elisa Narvaez on 07-08-2023 Hematocrit (Bld) [Volume fraction] 40.9 % 40-54 [facility] - Chemistry and C hemistry - challengeOrdered By: Elisa Narvaez on 07-08-2023 CO2 [Moles/Vol] 20.0 mmol/L 21.0-32.0 [facility] Magnesium [Mass/Vol] 2.3 mg/dL 1.6-2.6 [facility] Urea nitrogen/Creatinine [Mass ratio] 14.0 mg/mg 10-20 [facility] - Hematology and Cell countsOrdered By: Elisa Narvaez on 07-08-2023 Erythrocyte distribution width (RBC) [Entitic vol] 55.7 fL 35.1-43.9 [facility] Erythrocyte distribution width (RBC) [Ratio] 14.8 % 11.6-14.6 [facility] Immature granulocytes/100 WBC (Bld) 0.800 % 0.0-0.9 [facility] Comment on above: IG% - Immature Granu locytes (promyelocytes, myelocytes and metamyelocytes) > 1% indicates that a LEFT SHIFT is Present. MCH (RBC) [Entitic mass] 32.0 pg 27.0-32.0 [facility] Nucleated RBC/100 WBC (Bld) [Ratio] 0 % 0-5 [facility] MCHC Auto (RBC) [Mass/Vol]Or dered By: Elisa Narvaez on 07-08-2023 MCHC (RBC) [Mass/Vol] 31.1 g/dL 32-36 [facility] No Panel InformationOrdered By: Elisa Narvaez on 07-08-2023 Estimated GFR (MDRD) Amer 81 mL/min >60 [facility] Comment on above: GFR Calc Estimated GFR (MDRD) Non-Af Amer 67 mL/min >60 [facility] Comment on above: Non- GFR Calc 32.0 pg 27.0-32.0 [facility] 14.8 % 11.6-14.6 [facility] 55.7 fl 35.1-43.9 [facility] 0.800 % 0.0-0.9 [facility] 0 % 0-5 [facility] 67 mL/min >60 [facility] 81 mL/min >60 [facility] 14.0 RATIO 10-20 [facility] 2.3 mg/dL 1.6-2.6 [facility] 20.0 mmol/L 21.0-32.0 [facility] Platelets bldOrdered By: Dante Narvaez on 07-08-2023 Platelets (Bld) [#/Vol] 147 10*3/uL 150-450 [facility] Serum or plasma calcium aby urement (mass/volume)Ordered By: Elisa Narvaez on 07-08-2023 Calcium [Mass/Vol] 8.9 mg/dL 8.5-10.1 [facility] Serum or plasma creatinine m easurement (mass/volume)Ordered By: Elisa Narvaez on 07-08-2023 Creatinine [Mass/Vol] 1.14 mg/dL 0.70-1.30 [facility] Comment on above: The validity of the calculated GFR & GFRAA in patients over 70 years has not been determined. Clinical correlation is essential. Serum or plasma urea nitroge n measurement (mass/volume)Ordered By: Elisa Narvaez on 07-08-2023 Urea nitrogen [Mass/Vol] 16 mg/dL 7-18 [facility] Thin prep Papanicolaou smear with manual screeningOrdered By: Elisa Narvaez on 07-08-2023 Thin prep Papanicolaou smear with manual screening 7 5-15 [facility] Basophil percentageOrdered B y: Elisa Narvaez on 07-01-2023 Basophil percentage 137 mg/dL 74-106 [facility] Basophil percentage 140 mmol/L 136-145 [facility] Basophil percentage 3.9 mmol/L 3.5-5.1 [facility] Basophil percentage 113 mmol/L 98-107 [facility] Chloride [Moles/Vol] 113 mmol/L 98-107 [facility] Glucose [Mass/Vol] 137 mg/dL 74-106 [facility] Comment on above: Fasting Glucose resu lt greater than or equal to 126 mg/dL suggests DIABETES MELLITUS per A.D.A. criteria. Potassium [Moles/Vol] 3.9 mmol/L 3.5-5.1 [facility] Sodium [Moles/Vol] 140 mmol/L 136-145 [facility] Laboratory - Chemistry and C hemistry - challengeOrdered By: Elisa Narvaez on 07-01-2023 CO2 [Moles/Vol] 22.0 mmol/L 21.0-32.0 [facility] Urea nitrogen/Creatinine [Mass ratio] 11.5 mg/mg 10-20 [facility] No Panel InformationOrdered By: Elisa Narvaez on 07-01-2023 Estimated GFR (MDRD) Amer 70 mL/min >60 [facility] Comment on above: GFR Calc Estimated GFR (MDRD) Non-Af Amer 58 mL/min >60 [facility] Comment on above: Non- GFR Calc 58 mL/min >60 [facility] 70 mL/min >60 [facility] 11.5 RATIO 10-20 [facility] 22.0 mmol/L 21.0-32.0 [facility] Serum or plasma calcium aby urement (mass/volume)Ordered By: Elisa Narvaez on 07-01-2023 Calcium [Mass/Vol] 8.7 mg/dL 8.5-10.1 [facility] Serum or plasma creatinine m easurement (mass/volume)Ordered By: Elisa Narvaez on 07-01-2023 Creatinine [Mass/Vol] 1.30 mg/dL 0.70-1.30 [facility] Comment on above: The validity of the calculated GFR & GFRAA in patients over 70 years has not been determined. Clinical correlation is essential. Serum or plasma urea nitroge n measurement (mass/volume)Ordered By: Elisa Narvaez on 07-01-2023 Urea nitrogen [Mass/Vol] 15 mg/dL 7-18 [facility] Thin prep Papanicolaou smear with manual screeningOrdered By: Elisa Narvaez on 07-01-2023 Thin prep Papanicolaou smear with manual screening 5 5-15 [facility] Basophil percentageOrdered B y: Norrisfay Orellana on 06-26-2023 Ammonia (P) [Moles/Vol] 38.0 umol/L [facility] Basophil percentage 167 mg/dL 74-106 [facility] Basophil percentage 6.9 g/dL 6.4-8.2 [facility] Basophil percentage 1.00 mg/dL 0.20-1.00 [facility] Basophil percentage 137 mmol/L 136-145 [facility] Basophil percentage 4.1 mmol/L 3.5-5.1 [facility] Basophil percentage 106 mmol/L 98-107 [facility] Basophil percentage 38.0 umol/L [facility] Bilirubin [Mass/Vol] 1.00 mg/dL 0.20-1.00 [facility] Comment on above: For patients on eltr ombopag therapy, use of Dimension [place] TBIL is not recommended. Chloride [Moles/Vol] 106 mmol/L 98-107 [facility] Glucose [Mass/Vol] 167 mg/dL 74-106 [facility] Comment on above: Fasting Glucose resu lt greater than or equal to 126 mg/dL suggests DIABETES MELLITUS per A.D.A. criteria. Potassium [Moles/Vol] 4.1 mmol/L 3.5-5.1 [facility] Protein [Mass/Vol] 6.9 g/dL 6.4-8.2 [facility] Sodium [Moles/Vol] 137 mmol/L 136-145 [facility] Laboratory - Chemistry and C hemistry - challengeOrdered By: Norris Orellana on 06-26-2023 ALP [Catalytic activity/Vol] 127 U/L [facility] ALT [Catalytic activity/Vol] 34 U/L [facility] CO2 [Moles/Vol] 23.0 mmol/L 21.0-32.0 [facility] Globulin (S) [Mass/Vol] 3.8 g/dL 2.2-4.2 [facility] Urea nitrogen/Creatinine [Mass ratio] 16.5 mg/mg 08-26 [facility] No Panel InformationOrdered By: oNrris Orellana on 06-26-2023 Estimated Creatinine Clearance Calc 58.92 ml/min [facility] Estimated GFR (MDRD) Amer 81 mL/min >60 [facility] Comment on above: GFR Calc Estimated GFR (MDRD) Non-Af Amer 67 mL/min >60 [facility] Comment on above: Non- GFR Calc 67 mL/min >60 [facility] 81 mL/min >60 [facility] 58.92 ml/min [facility] 16.5 RATIO 08-26 [facility] 3.8 g/dL 2.2-4.2 [facility] 127 U/L [facility] 34 U/L [facility] 23.0 mmol/L 21.0-32.0 [facility] Serum or plasma albumin aby urement (mass/volume)Ordered By: Norris Orellana on 06-26-2023 Albumin [Mass/Vol] 3.1 g/dL 3.2-5.0 [facility] Serum or plasma albumin/glob ulin mass ratioOrdered By: Norris Orellana on 06-26-2023 Albumin/Globulin [Mass ratio] 0.8 {ratio} 0.9-2.4 [facility] Serum or plasma calcium aby urement (mass/volume)Ordered By: Norris Orellana on 06-26-2023 Calcium [Mass/Vol] 9.0 mg/dL 8.5-10.1 [facility] Serum or plasma creatinine m easurement (mass/volume)Ordered By: Norris Orellana on 06-26-2023 Creatinine [Mass/Vol] 1.15 mg/dL 0.70-1.30 [facility] Comment on above: The validity of the calculated GFR & GFRAA in patients over 70 years has not been determined. Clinical correlation is essential. Serum or plasma urea nitroge n measurement (mass/volume)Ordered By: Norris Orellana on 06-26-2023 Urea nitrogen [Mass/Vol] 19 mg/dL 7-18 [facility] Thin prep Papanicolaou smear with manual screeningOrdered By: Norris Orellana on 06-26-2023 Thin prep Papanicolaou smear with manual screening 28 U/L 15-37 [facility] Thin prep Papanicolaou smear with manual screening 8 5-15 [facility] Absolute lymphocyte countOrd ered By: Norris Orellana on 06-25-2023 Lymphocytes Auto (Unsp spec) [#/Vol] 0.47 10*3/uL 0.83-4.51 [facility] Basophil percentageOrdered B y: Norris Orellana on 06-25-2023 Basophils (Bld) [#/Vol] 8.2 10*3/uL 4.4-11.0 [facility] Basophils (Bld) [#/Vol] 6.6 10*3/uL 2.0-7.7 [facility] Basophils/100 WBC (Bld) 81.0 % 47-70 [facility] Basophils/100 WBC (Bld) 4.2 % 0-5 [facility] Basophils/100 WBC (Bld) 0.7 % 0-1 [facility] Eosinophils/100 WBC (Bld) 4.2 % 0-5 [facility] Neutrophils (Bld) [#/Vol] 6.6 10*3/uL 2.0-7.7 [facility] Neutrophils/100 WBC (Bld) 81.0 % 47-70 [facility] WBC (Bld) [#/Vol] 8.2 10*3/uL 4.4-11.0 [facility] Blood erythrocytes count (nu mber/volume)Ordered By: Norris Orellana on 06-25-2023 RBC (Bld) [#/Vol] 4.06 10*6/uL 4.6-6.2 [facility] Blood hemoglobin measurement (mass/volume)Ordered By: Norris Orellana on 06-25-2023 Hemoglobin (Bld) [Mass/Vol] 13.1 g/dL 13.0-16.5 [facility] Blood lymphocytes/100 leukoc ytesOrdered By: Norris Orellana on 06-25-2023 Lymphocytes/100 WBC (Bld) 5.7 % 19-41 [facility] Blood manual differential co mment interpretation (narrative result)Ordered By: Norris Orellana on 06-25-2023 Manual differential comment Timur (Bld) [Interp] SCANNED [facility] Comment on above: LYMPHOPENIA NOTED Blood monocytes/100 leukocyt esOrdered By: Norris Orellana on 06-25-2023 Monocytes/100 WBC (Bld) 7.7 % 0-10 [facility] Blood platelet mean volumeOr dered By: Norris Orellana on 06-25-2023 Platelet mean volume (Bld) [Entitic vol] 10.8 fL 6.2-12.0 [facility] Determination of erythrocyte mean corpuscular volume (MCV)Ordered By: Norris Orellana on 06-25-2023 MCV (RBC) [Entitic vol] 97.8 fL 80-94 [facility] Glucose Glucometer (BldC) [M ass/Vol]Ordered By: Norris Orellana on 06-25-2023 Glucose [Mass/Vol] 144 mg/dL 74-106 [facility] Comment on above: MANAGEMENT OF PATIEN T CARE PER NURSING PROTOCOL Hematocrit Auto (Bld) [Volum e fraction]Ordered By: Norris Orellana on 06-25-2023 Hematocrit (Bld) [Volume fraction] 39.7 % 40-54 [facility] Laboratory - Hematology and Cell countsOrdered By: Norris Orellana on 06-25-2023 Erythrocyte distribution width (RBC) [Entitic vol] 49.6 fL 35.1-43.9 [facility] Erythrocyte distribution width (RBC) [Ratio] 13.7 % 11.6-14.6 [facility] Immature granulocytes/100 WBC (Bld) 0.700 % 0.0-0.9 [facility] Comment on above: IG% - Immature Granu locytes (promyelocytes, myelocytes and metamyelocytes) > 1% indicates that a LEFT SHIFT is Present. MCH (RBC) [Entitic mass] 32.3 pg 27.0-32.0 [facility] Nucleated RBC/100 WBC (Bld) [Ratio] 0 % 0-5 [facility] MCHC Auto (RBC) [Mass/Vol]Or dered By: Norris Orellana on 06-25-2023 MCHC (RBC) [Mass/Vol] 33.0 g/dL 32-36 [facility] No Panel InformationOrdered By: Norris Orellana on 06-25-2023 32.3 pg 27.0-32.0 [facility] 13.7 % 11.6-14.6 [facility] 49.6 fl 35.1-43.9 [facility] 0.700 % 0.0-0.9 [facility] 0 % 0-5 [facility] Platelets bldOrdered By: Carmine Orellana on 06-25-2023 Platelets (Bld) [#/Vol] 174 10*3/uL 150-450 [facility] Basophil percentageOrdered B y: Norris Orellana on 06-23-2023 Basophil percentage 2.3 mg/dL 2.5-4.9 [facility] Direct bilirubinOrdered By: Norris Orellana on 06-23-2023 Bilirubin.direct [Mass/Vol] 0.42 mg/dL 0.00-0.30 [facility] Laboratory - Chemistry and C hemistry - challengeOrdered By: Norris Orellana on 06-23-2023 Magnesium [Mass/Vol] 2.2 mg/dL 1.6-2.6 [facility] No Panel InformationOrdered By: Norris Orellana on 06-23-2023 2.2 mg/dL 1.6-2.6 [facility] Erythrocyte sedimentation ra teOrdered By: Quynh Araya on 06-22-2023 ESR (Bld) [Velocity] 24 mm/h 0-20 [facility] Serum or plasma C reactive p rotein measurement (mass/volume)Ordered By: Quynh Araya on 06-22-2023 CRP [Mass/Vol] 76.00 mg/L 0.0-3.0 [facility] Comment on above: C-Reactive Protein ( CRP) provides useful information for thediagnosis, therapy and monitoring of inflammatory processesand associated diseases. For the evaluation of Relative Riskfor Cardiovascular Disease, a High Sensitivity CRP (HSCRP)should be ordered. Basophil percentageOrdered B y: Juan Conte on 06-21-2023 Basophil percentage 0-5 SEEN /hpf 0-5 [facility] Basophil percentage 116 mg/dL 74-106 [facility] Basophil percentage 142 mmol/L 136-145 [facility] Basophil percentage 4.2 mmol/L 3.5-5.1 [facility] Basophil percentage 107 mmol/L 98-107 [facility] Basophil percentage 30.0 umol/L 11-32 [facility] Basophils (Bld) [#/Vol] 9.2 10*3/uL 4.4-11.0 [facility] Bilirubin Test strip Ql (U)O rdered By: Juan Conte on 06-21-2023 Bilirubin Ql (U) 1 mg/dL Negative [facility] Comment on above: COLOR OF URINE MAY A FFECT DIPSTICK RESULTS. Blood erythrocytes count (nu mber/volume)Ordered By: Juan Conte on 06-21-2023 RBC (Bld) [#/Vol] 4.65 10*6/uL 4.6-6.2 [facility] Blood hemoglobin measurement (mass/volume)Ordered By: Juan Conte on 06-21-2023 Hemoglobin (Bld) [Mass/Vol] 15.0 g/dL 13.0-16.5 [facility] Blood platelet mean volumeOr dered By: Juan Conte on 06-21-2023 Platelet mean volume (Bld) [Entitic vol] 11.5 fL 6.2-12.0 [facility] Determination of erythrocyte mean corpuscular volume (MCV)Ordered By: Juan Conte on 06-21-2023 MCV (RBC) [Entitic vol] 99.6 fL 80-94 [facility] Hematocrit Auto (Bld) [Volum e fraction]Ordered By: Juan Conte on 06-21-2023 Hematocrit (Bld) [Volume fraction] 46.3 % 40-54 [facility] Influenza virus A and B and SARS-CoV-2 (COVID-19) Ag panel - Upper respiratory specimOrdered By: Juan Conte on 06-21-2023 SARS-CoV-2 (COVID-19) RNA ANUJ+probe Ql (Resp) [facility] SARS-CoV-2 (COVID-19) RNA ANUJ+probe Ql (Resp) [facility] Ketones Test strip Ql (U)Ord ered By: Juan Conte on 06-21-2023 Ketones Ql (U) 5 mg/dl Negative [facility] Laboratory - Chemistry and C hemistry - challengeOrdered By: Juan Conte on 06-21-2023 Natriuretic peptide B (Bld) [Mass/Vol] 43.4 pg/mL 0-100 [facility] Lipase [Catalytic activity/Vol] U/L 13-75 [facility] Comment on above: Please note:LIPASE r evised reference range effective 23. New Lipase methodology. Expected to produce lower values than the previous assay method. NEW Reference Range: 13 - 75 U/L [facility] Auto (RBC) [Mass/Vol]Or dered By: Juan Conte on 06-21-2023 MCHC (RBC) [Mass/Vol] 32.4 g/dL 32-36 [facility] Mucus LM Ql (Urine sed)Order ed By: Juan Conte on 06-21-2023 Mucus Ql (Urine sed) 0 SEEN /hpf [facility] Nitrite Test strip Ql (U)Ord ered By: Juan Conte on 06-21-2023 Nitrite Ql (U) Negative Negative [facility] No Panel InformationOrdered By: Juan Conte on 06-21-2023 43.4 pg/mL 0-100 [facility] Troponin I High Sensitivity 104 pg/mL 3.0-78.0 [facility] Comment on above: Please Note: New [place] t Units and Gender Specific Reference Ranges. For more information see Policy Stat Procedure [place] High Sensitivity Troponin (TNIH) and attachments. 32.3 pg 27.0-32.0 [facility] 14.4 % 11.6-14.6 [facility] 50.8 fl 35.1-43.9 [facility] 30 mL/min >60 [facility] 36 mL/min >60 [facility] 29.08 ml/min [facility] 15.0 RATIO 10-20 [facility] < 10 U/L 13-75 [facility] 104 pg/mL 3.0-78.0 [facility] 27.0 mmol/L 21.0-32.0 [facility] Platelets bldOrdered By: Laurie Conte on 06-21-2023 Platelets (Bld) [#/Vol] 204 10*3/uL 150-450 [facility] Protein Test strip Ql (U)Ord ered By: Juan Conte on 06-21-2023 Protein Ql (U) 30 mg/dl Negative [facility] Serum or plasma calcium aby urement (mass/volume)Ordered By: Juan Conte on 06-21-2023 Calcium [Mass/Vol] 9.7 mg/dL 8.5-10.1 [facility] Serum or plasma creatinine m easurement (mass/volume)Ordered By: Juan Conte on 06-21-2023 Creatinine [Mass/Vol] 2.33 mg/dL 0.70-1.30 [facility] Serum or plasma urea nitroge n measurement (mass/volume)Ordered By: Juan Conte on 06-21-2023 Urea nitrogen [Mass/Vol] 35 mg/dL 7-18 [facility] Squamous epithelial cells de tection in urine sediment by light microscopyOrdered By: Juan Conte on 06-21-2023 Epithelial cells.squamous LM Ql (Urine sed) 0-5 SEEN /hpf 0-5 [facility] Thin prep Papanicolaou smear with manual screeningOrdered By: Juan Conte on 06-21-2023 Thin prep Papanicolaou smear with manual screening 8 5-15 [facility] Urine blood detectionOrdered By: Juan Conte on 06-21-2023 RBC Ql (U) Negative Negative [facility] RBC Ql (U) 0-5 SEEN /hpf 0-5 [facility] Urine clarityOrdered By: Laurie Conte on 06-21-2023 Clarity (U) Clear Clear [facility] Urine color determinationOrd ered By: Juan Conte on 06-21-2023 Color (U) Yellow Yellow [facility] Urine glucose detectionOrder ed By: Juan Conte on 06-21-2023 Glucose Ql (U) Normal mg/dl Normal [facility] Urine leukocyte esterase det ection by dipstickOrdered By: Juan Conte on 06-21-2023 Leukocyte esterase Test strip Ql (U) 25 /ul Negative [facility] Urine pHOrdered By: Juan simental on 06-21-2023 pH (U) 6.0 [pH] 5.0 - 8.0 [facility] Urine sediment bacteria coun t by microscopy (number/high power field)Ordered By: Juan Conte on 06-21-2023 Bacteria LM.HPF (Urine sed) [#/Area] RARE /hpf None Seen [facility] Urine specific gravity measu rementOrdered By: Juan Conte on 06-21-2023 Specific gravity (U) [Rel density] 1.020 1.002-1.03 0 [facility] Urobilinogen Auto test strip Ql (U)Ordered By: Juan Conte on 06-21-2023 Urobilinogen Ql (U) 1 mg/dl Normal [facility] Absolute lymphocyte countOrd ered By: Elisa Narvaez on 06-20-2023 Lymphocytes Auto (Unsp spec) [#/Vol] 0.39 10*3/uL 0.83-4.51 [facility] Basophil percentageOrdered B y: Elisa Narvaez on 06-20-2023 Basophil percentage 188 mg/dL 74-106 [facility] Basophil percentage 140 mmol/L 136-145 [facility] Basophil percentage 3.8 mmol/L 3.5-5.1 [facility] Basophil percentage 108 mmol/L 98-107 [facility] Basophils (Bld) [#/Vol] 8.2 10*3/uL 4.4-11.0 [facility] Basophils (Bld) [#/Vol] 6.9 10*3/uL 2.0-7.7 [facility] Basophils/100 WBC (Bld) 84.0 % 47-70 [facility] Basophils/100 WBC (Bld) 3.6 % 0-5 [facility] Basophils/100 WBC (Bld) 0.5 % 0-1 [facility] Blood erythrocytes count (nu mber/volume)Ordered By: Elisa Narvaez on 06-20-2023 RBC (Bld) [#/Vol] 4.26 10*6/uL 4.6-6.2 [facility] Blood hemoglobin measurement (mass/volume)Ordered By: Elisa Narvaez on 06-20-2023 Hemoglobin (Bld) [Mass/Vol] 13.9 g/dL 13.0-16.5 [facility] Blood lymphocytes/100 leukoc ytesOrdered By: Elisa Narvaez on 06-20-2023 Lymphocytes/100 WBC (Bld) 4.8 % 19-41 [facility] Blood monocytes/100 leukocyt esOrdered By: Elisa Narvaez on 06-20-2023 Monocytes/100 WBC (Bld) 6.4 % 0-10 [facility] Blood platelet mean volumeOr dered By: Elisa Narvaez on 06-20-2023 Platelet mean volume (Bld) [Entitic vol] 11.5 fL 6.2-12.0 [facility] Determination of erythrocyte mean corpuscular volume (MCV)Ordered By: Elisa Narvaez on 06-20-2023 MCV (RBC) [Entitic vol] 98.4 fL 80-94 [facility] Hematocrit Auto (Bld) [Volum e fraction]Ordered By: Elisa Narvaez on 06-20-2023 Hematocrit (Bld) [Volume fraction] 41.9 % 40-54 [facility] MCHC Auto (RBC) [Mass/Vol]Or dered By: Elisa Narvaez on 06-20-2023 MCHC (RBC) [Mass/Vol] 33.2 g/dL 32-36 [facility] No Panel InformationOrdered By: Elisa Narvaez on 06-20-2023 32.6 pg 27.0-32.0 [facility] 14.0 % 11.6-14.6 [facility] 48.9 fl 35.1-43.9 [facility] 0.700 % 0.0-0.9 [facility] 0 % 0-5 [facility] 58 mL/min >60 [facility] 70 mL/min >60 [facility] 16.9 RATIO 10-20 [facility] 2.4 mg/dL 1.6-2.6 [facility] 25.0 mmol/L 21.0-32.0 [facility] Platelets bldOrdered By: Dante Narvaez on 06-20-2023 Platelets (Bld) [#/Vol] 178 10*3/uL 150-450 [facility] Serum or plasma calcium aby urement (mass/volume)Ordered By: Elisa Narvaez on 06-20-2023 Calcium [Mass/Vol] 9.6 mg/dL 8.5-10.1 [facility] Serum or plasma creatinine m easurement (mass/volume)Ordered By: Elisa Narvaez on 06-20-2023 Creatinine [Mass/Vol] 1.30 mg/dL 0.70-1.30 [facility] Serum or plasma urea nitroge n measurement (mass/volume)Ordered By: Elisa Narvaez on 06-20-2023 Urea nitrogen [Mass/Vol] 22 mg/dL 7-18 [facility] Thin prep Papanicolaou smear with manual screeningOrdered By: Elisa Narvaez on 06-20-2023 Thin prep Papanicolaou smear with manual screening 7 5-15 [facility] Clostridium difficile detect ion by polymerase chain reactionOrdered By: Elisa Narvaez on 06-14-2023 C. difficile DNA ANUJ+probe Ql (Unsp spec) [facility] Stool Clostridium difficile detectionOrdered By: Elisa Narvaez on 06-14-2023 C. difficile Ql (Stl) [facility] Absolute lymphocyte countOrd ered By: Elisa Narvaez on 06-13-2023 Lymphocytes Auto (Unsp spec) [#/Vol] 0.36 10*3/uL 0.83-4.51 [facility] Basophil percentageOrdered B y: Elisa Narvaez on 06-13-2023 Basophil percentage 326 mg/dL 74-106 [facility] Basophil percentage 141 mmol/L 136-145 [facility] Basophil percentage 3.6 mmol/L 3.5-5.1 [facility] Basophil percentage 113 mmol/L 98-107 [facility] Basophils (Bld) [#/Vol] 7.2 10*3/uL 4.4-11.0 [facility] Basophils (Bld) [#/Vol] 6.1 10*3/uL 2.0-7.7 [facility] Basophils/100 WBC (Bld) 84.8 % 47-70 [facility] Basophils/100 WBC (Bld) 3.6 % 0-5 [facility] Basophils/100 WBC (Bld) 0.6 % 0-1 [facility] Blood erythrocytes count (nu mber/volume)Ordered By: Elisa Narvaez on 06-13-2023 RBC (Bld) [#/Vol] 3.72 10*6/uL 4.6-6.2 [facility] Blood hemoglobin measurement (mass/volume)Ordered By: Elisa Narvaez on 06-13-2023 Hemoglobin (Bld) [Mass/Vol] 11.8 g/dL 13.0-16.5 [facility] Blood lymphocytes/100 leukoc ytesOrdered By: Elisa Narvaez on 06-13-2023 Lymphocytes/100 WBC (Bld) 5.0 % 19-41 [facility] Blood monocytes/100 leukocyt esOrdered By: Elisa Narvaez on 06-13-2023 Monocytes/100 WBC (Bld) 4.5 % 0-10 [facility] Blood platelet mean volumeOr dered By: Elisa Naravez on 06-13-2023 Platelet mean volume (Bld) [Entitic vol] 11.5 fL 6.2-12.0 [facility] Determination of erythrocyte mean corpuscular volume (MCV)Ordered By: Elisa Narvaez on 06-13-2023 MCV (RBC) [Entitic vol] 100.0 fL 80-94 [facility] Hematocrit Auto (Bld) [Volum e fraction]Ordered By: Elisa Narvaez on 06-13-2023 Hematocrit (Bld) [Volume fraction] 37.2 % 40-54 [facility] MCHC Auto (RBC) [Mass/Vol]Or dered By: Elisa Narvaez on 06-13-2023 MCHC (RBC) [Mass/Vol] 31.7 g/dL 32-36 [facility] No Panel InformationOrdered By: Elisa Narvaez on 06-13-2023 31.7 pg 27.0-32.0 [facility] 13.5 % 11.6-14.6 [facility] 49.7 fl 35.1-43.9 [facility] 1.500 % 0.0-0.9 [facility] 0 % 0-5 [facility] 57 mL/min >60 [facility] 69 mL/min >60 [facility] 12.1 RATIO 10-20 [facility] 1.9 mg/dL 1.6-2.6 [facility] 21.0 mmol/L 21.0-32.0 [facility] Platelets bldOrdered By: Dante Narvaez on 06-13-2023 Platelets (Bld) [#/Vol] 145 10*3/uL 150-450 [facility] Serum or plasma calcium aby urement (mass/volume)Ordered By: Elisa Narvaez on 06-13-2023 Calcium [Mass/Vol] 8.3 mg/dL 8.5-10.1 [facility] Serum or plasma creatinine m easurement (mass/volume)Ordered By: Elisa Narvaez on 06-13-2023 Creatinine [Mass/Vol] 1.32 mg/dL 0.70-1.30 [facility] Serum or plasma urea nitroge n measurement (mass/volume)Ordered By: Elisa Narvaez on 06-13-2023 Urea nitrogen [Mass/Vol] 16 mg/dL 7-18 [facility] Thin prep Papanicolaou smear with manual screeningOrdered By: Elisa Narvaez on 06-13-2023 Thin prep Papanicolaou smear with manual screening 7 5-15 [facility] Absolute lymphocyte countOrd ered By: Elisa Narvaez on 06-06-2023 Lymphocytes Auto (Unsp spec) [#/Vol] 0.50 10*3/uL 0.83-4.51 [facility] Basophil percentageOrdered B y: Elisa Narvaez on 06-06-2023 Basophil percentage 118 mg/dL 74-106 [facility] Basophil percentage 143 mmol/L 136-145 [facility] Basophil percentage 3.2 mmol/L 3.5-5.1 [facility] Basophil percentage 114 mmol/L 98-107 [facility] Basophil percentage 34.0 umol/L 11-32 [facility] Basophils (Bld) [#/Vol] 8.5 10*3/uL 4.4-11.0 [facility] Basophils (Bld) [#/Vol] 7.0 10*3/uL 2.0-7.7 [facility] Basophils/100 WBC (Bld) 82.7 % 47-70 [facility] Basophils/100 WBC (Bld) 2.4 % 0-5 [facility] Basophils/100 WBC (Bld) 0.4 % 0-1 [facility] Blood erythrocytes count (nu mber/volume)Ordered By: Elisa Narvaez on 06-06-2023 RBC (Bld) [#/Vol] 4.03 10*6/uL 4.6-6.2 [facility] Blood hemoglobin measurement (mass/volume)Ordered By: Elisa Narvaez on 06-06-2023 Hemoglobin (Bld) [Mass/Vol] 13.1 g/dL 13.0-16.5 [facility] Blood lymphocytes/100 leukoc ytesOrdered By: Elisa Narvaez on 06-06-2023 Lymphocytes/100 WBC (Bld) 5.9 % 19-41 [facility] Blood manual differential co mment interpretation (narrative result)Ordered By: Elisa Narvaez on 06-06-2023 Manual differential comment Timur (Bld) [Interp] SCANNED [facility] Blood monocytes/100 leukocyt esOrdered By: Elisa Narvaez on 06-06-2023 Monocytes/100 WBC (Bld) 7.9 % 0-10 [facility] Blood platelet mean volumeOr dered By: Elisa Narvaez on 06-06-2023 Platelet mean volume (Bld) [Entitic vol] 11.7 fL 6.2-12.0 [facility] Determination of erythrocyte mean corpuscular volume (MCV)Ordered By: Elisa Narvaez on 06-06-2023 MCV (RBC) [Entitic vol] 99.3 fL 80-94 [facility] Hematocrit Auto (Bld) [Volum e fraction]Ordered By: Elisa Narvaez on 06-06-2023 Hematocrit (Bld) [Volume fraction] 40.0 % 40-54 [facility] MCHC Auto (RBC) [Mass/Vol]Or dered By: Elisa Narvaez on 06-06-2023 MCHC (RBC) [Mass/Vol] 32.8 g/dL 32-36 [facility] No Panel InformationOrdered By: Elisa Narvaez on 06-06-2023 32.5 pg 27.0-32.0 [facility] 13.8 % 11.6-14.6 [facility] 50.6 fl 35.1-43.9 [facility] 0.700 % 0.0-0.9 [facility] 0 % 0-5 [facility] 48 mL/min >60 [facility] 58 mL/min >60 [facility] 23.0 RATIO 10-20 [facility] 2.4 mg/dL 1.6-2.6 [facility] 23.0 mmol/L 21.0-32.0 [facility] Platelets bldOrdered By: Dante Narvaez on 06-06-2023 Platelets (Bld) [#/Vol] 152 10*3/uL 150-450 [facility] Serum or plasma calcium aby urement (mass/volume)Ordered By: Elisa Narvaez on 06-06-2023 Calcium [Mass/Vol] 8.9 mg/dL 8.5-10.1 [facility] Serum or plasma creatinine m easurement (mass/volume)Ordered By: Elisa Narvaez on 06-06-2023 Creatinine [Mass/Vol] 1.52 mg/dL 0.70-1.30 [facility] Serum or plasma urea nitroge n measurement (mass/volume)Ordered By: Elisa Narvaez on 06-06-2023 Urea nitrogen [Mass/Vol] 35 mg/dL 7-18 [facility] Thin prep Papanicolaou smear with manual screeningOrdered By: Elisa Narvaez on 06-06-2023 Thin prep Papanicolaou smear with manual screening 6 5-15 [facility] Absolute lymphocyte countOrd ered By: Elisa Narvaez on 05-25-2023 Lymphocytes Auto (Unsp spec) [#/Vol] 0.35 10*3/uL 0.83-4.51 [facility] Basophil percentageOrdered B y: Elisa Narvaez on 05-25-2023 Basophil percentage 169 mg/dL 74-106 [facility] Basophil percentage 140 mmol/L 136-145 [facility] Basophil percentage 3.8 mmol/L 3.5-5.1 [facility] Basophil percentage 109 mmol/L 98-107 [facility] Basophils (Bld) [#/Vol] 4.0 10*3/uL 4.4-11.0 [facility] Basophils (Bld) [#/Vol] 3.2 10*3/uL 2.0-7.7 [facility] Basophils/100 WBC (Bld) 77.9 % 47-70 [facility] Basophils/100 WBC (Bld) 5.2 % 0-5 [facility] Basophils/100 WBC (Bld) 0.5 % 0-1 [facility] Blood erythrocytes count (nu mber/volume)Ordered By: Elisa Narvaez on 05-25-2023 RBC (Bld) [#/Vol] 3.69 10*6/uL 4.6-6.2 [facility] Blood hemoglobin measurement (mass/volume)Ordered By: Elisa Narvaez on 05-25-2023 Hemoglobin (Bld) [Mass/Vol] 12.0 g/dL 13.0-16.5 [facility] Blood lymphocytes/100 leukoc ytesOrdered By: Elisa Narvaez on 05-25-2023 Lymphocytes/100 WBC (Bld) 8.7 % 19-41 [facility] Blood monocytes/100 leukocyt esOrdered By: Elisa Narvaez on 05-25-2023 Monocytes/100 WBC (Bld) 6.7 % 0-10 [facility] Blood platelet mean volumeOr dered By: Elisa Narvaez on 05-25-2023 Platelet mean volume (Bld) [Entitic vol] 12.2 fL 6.2-12.0 [facility] Determination of erythrocyte mean corpuscular volume (MCV)Ordered By: Elisa Narvaez on 05-25-2023 MCV (RBC) [Entitic vol] 101.1 fL 80-94 [facility] Hematocrit Auto (Bld) [Volum e fraction]Ordered By: Elisa Narvaez on 05-25-2023 Hematocrit (Bld) [Volume fraction] 37.3 % 40-54 [facility] Hypochromatic red blood cell detectionOrdered By: Elisa Narvaez on 05-25-2023 Hypochromia Ql (Bld) 4.0 [facility] MCHC Auto (RBC) [Mass/Vol]Or dered By: Elisa Narvaez on 05-25-2023 MCHC (RBC) [Mass/Vol] 32.2 g/dL 32-36 [facility] No Panel InformationOrdered By: Elisa Narvaez on 05-25-2023 32.5 pg 27.0-32.0 [facility] 14.0 % 11.6-14.6 [facility] 51.3 fl 35.1-43.9 [facility] 1.000 % 0.0-0.9 [facility] 0 % 0-5 [facility] 50 mL/min >60 [facility] 60 mL/min >60 [facility] 17.6 RATIO 10-20 [facility] 2.1 mg/dL 1.6-2.6 [facility] 25.0 mmol/L 21.0-32.0 [facility] 1077 pg/mL 211-911 [facility] 47.9 ng/mL [facility] Platelets bldOrdered By: Dante Narvaez on 05-25-2023 Platelets (Bld) [#/Vol] 110 10*3/uL 150-450 [facility] Review by pathologistOrdered By: Elisa Narvaez on 05-25-2023 Pathologist review Timur (Unsp spec) [Interp] Reviewed [facility] Serum or plasma calcium aby urement (mass/volume)Ordered By: Elisa Narvaez on 05-25-2023 Calcium [Mass/Vol] 8.6 mg/dL 8.5-10.1 [facility] Serum or plasma creatinine m easurement (mass/volume)Ordered By: Elisa Narvaez on 05-25-2023 Creatinine [Mass/Vol] 1.48 mg/dL 0.70-1.30 [facility] Serum or plasma urea nitroge n measurement (mass/volume)Ordered By: Elisaely Narvaez on 05-25-2023 Urea nitrogen [Mass/Vol] 26 mg/dL 7-18 [facility] Thin prep Papanicolaou smear with manual screeningOrdered By: Elisa Narvaez on 05-25-2023 Thin prep Papanicolaou smear with manual screening 6 5-15 [facility] Whole blood hemoglobin A1c/t otal hemoglobin ratio (mass fraction)Ordered By: Elisa Narvaez on 05-25-2023 HbA1c (Bld) [Mass fraction] 8.3 % 3.8-5.6 [facility] Basophil percentageOrdered B y: Azael Jackson on 05-20-2023 Basophil percentage 40.0 umol/L 11-32 [facility] Absolute lymphocyte countOrd ered By: Azael Jackson on 05-18-2023 Lymphocytes Auto (Unsp spec) [#/Vol] 0.44 10*3/uL 0.83-4.51 [facility] Basophil percentageOrdered B y: Azael Jackson on 05-18-2023 Basophil percentage 196 mg/dL 74-106 [facility] Basophil percentage 6.6 g/dL 6.4-8.2 [facility] Basophil percentage 0.70 mg/dL 0.20-1.00 [facility] Basophil percentage 140 mmol/L 136-145 [facility] Basophil percentage 3.7 mmol/L 3.5-5.1 [facility] Basophil percentage 110 mmol/L 98-107 [facility] Basophil percentage 41.0 umol/L 11-32 [facility] Basophils (Bld) [#/Vol] 5.9 10*3/uL 4.4-11.0 [facility] Basophils (Bld) [#/Vol] 4.8 10*3/uL 2.0-7.7 [facility] Basophils/100 WBC (Bld) 81.4 % 47-70 [facility] Basophils/100 WBC (Bld) 3.4 % 0-5 [facility] Basophils/100 WBC (Bld) 0.5 % 0-1 [facility] Blood erythrocytes count (nu mber/volume)Ordered By: Azael Jackson on 05-18-2023 RBC (Bld) [#/Vol] 3.82 10*6/uL 4.6-6.2 [facility] Blood hemoglobin measurement (mass/volume)Ordered By: Azael Jackson on 05-18-2023 Hemoglobin (Bld) [Mass/Vol] 12.5 g/dL 13.0-16.5 [facility] Blood lymphocytes/100 leukoc ytesOrdered By: Azael Jackson on 05-18-2023 Lymphocytes/100 WBC (Bld) 7.4 % 19-41 [facility] Blood monocytes/100 leukocyt esOrdered By: Azael Jackson on 05-18-2023 Monocytes/100 WBC (Bld) 6.3 % 0-10 [facility] Blood platelet mean volumeOr dered By: Azael Jackson on 05-18-2023 Platelet mean volume (Bld) [Entitic vol] 12.0 fL 6.2-12.0 [facility] Determination of erythrocyte mean corpuscular volume (MCV)Ordered By: Azael Jackson on 05-18-2023 MCV (RBC) [Entitic vol] 100.0 fL 80-94 [facility] Hematocrit Auto (Bld) [Volum e fraction]Ordered By: Azael Jackson on 05-18-2023 Hematocrit (Bld) [Volume fraction] 38.2 % 40-54 [facility] Auto (RBC) [Mass/Vol]Or dered By: Azael Jackson on 05-18-2023 MCHC (RBC) [Mass/Vol] 32.7 g/dL 32-36 [facility] No Panel InformationOrdered By: Azael Jackson on 05-18-2023 32.7 pg 27.0-32.0 [facility] 14.3 % 11.6-14.6 [facility] 52.8 fl 35.1-43.9 [facility] 1.000 % 0.0-0.9 [facility] 0 % 0-5 [facility] 43 mL/min >60 [facility] 52 mL/min >60 [facility] 21.6 RATIO 10-20 [facility] 3.6 g/dL 2.2-4.2 [facility] 102 U/L 45-117 [facility] 20 U/L 16-61 [facility] 23.0 mmol/L 21.0-32.0 [facility] Platelets bldOrdered By: Leonardo Jackson on 05-18-2023 Platelets (Bld) [#/Vol] 83 10*3/uL 150-450 [facility] Serum or plasma albumin aby urement (mass/volume)Ordered By: Azael Jackson on 05-18-2023 Albumin [Mass/Vol] 3.0 g/dL 3.2-5.0 [facility] Serum or plasma albumin/glob ulin mass ratioOrdered By: Azael Jackson on 05-18-2023 Albumin/Globulin [Mass ratio] 0.8 {ratio} 0.9-2.4 [facility] Serum or plasma calcium aby urement (mass/volume)Ordered By: Azael Jackson on 05-18-2023 Calcium [Mass/Vol] 8.7 mg/dL 8.5-10.1 [facility] Serum or plasma creatinine m easurement (mass/volume)Ordered By: Azael Jackson on 05-18-2023 Creatinine [Mass/Vol] 1.67 mg/dL 0.70-1.30 [facility] Serum or plasma urea nitroge n measurement (mass/volume)Ordered By: Azael Jackson on 05-18-2023 Urea nitrogen [Mass/Vol] 36 mg/dL 7-18 [facility] Thin prep Papanicolaou smear with manual screeningOrdered By: Azael Jackson on 05-18-2023 Thin prep Papanicolaou smear with manual screening 12 U/L 15-37 [facility] Thin prep Papanicolaou smear with manual screening 7 5-15 [facility] Absolute lymphocyte countOrd ered By: Azael Jackson on 05-11-2023 Lymphocytes Auto (Unsp spec) [#/Vol] 0.49 10*3/uL 0.83-4.51 [facility] Basophil percentageOrdered B y: Azael Jackson on 05-11-2023 Basophil percentage 270 mg/dL 74-106 [facility] Basophil percentage 6.9 g/dL 6.4-8.2 [facility] Basophil percentage 0.60 mg/dL 0.20-1.00 [facility] Basophil percentage 137 mmol/L 136-145 [facility] Basophil percentage 4.0 mmol/L 3.5-5.1 [facility] Basophil percentage 107 mmol/L 98-107 [facility] Basophil percentage 14.0 umol/L 11-32 [facility] Basophils (Bld) [#/Vol] 8.7 10*3/uL 4.4-11.0 [facility] Basophils (Bld) [#/Vol] 7.5 10*3/uL 2.0-7.7 [facility] Basophils/100 WBC (Bld) 86.3 % 47-70 [facility] Basophils/100 WBC (Bld) 1.6 % 0-5 [facility] Basophils/100 WBC (Bld) 0.3 % 0-1 [facility] Blood erythrocytes count (nu mber/volume)Ordered By: Azael Jackson on 05-11-2023 RBC (Bld) [#/Vol] 4.05 10*6/uL 4.6-6.2 [facility] Blood hemoglobin measurement (mass/volume)Ordered By: Azael Jackson on 05-11-2023 Hemoglobin (Bld) [Mass/Vol] 13.3 g/dL 13.0-16.5 [facility] Blood lymphocytes/100 leukoc ytesOrdered By: Azael Jackson on 05-11-2023 Lymphocytes/100 WBC (Bld) 5.6 % 19-41 [facility] Blood manual differential co mment interpretation (narrative result)Ordered By: Azael Jackson on 05-11-2023 Manual differential comment Timur (Bld) [Interp] SCANNED [facility] Blood monocytes/100 leukocyt esOrdered By: Azael Jackson on 05-11-2023 Monocytes/100 WBC (Bld) 4.9 % 0-10 [facility] Blood platelet mean volumeOr dered By: Azael Jackson on 05-11-2023 Platelet mean volume (Bld) [Entitic vol] 12.1 fL 6.2-12.0 [facility] Determination of erythrocyte mean corpuscular volume (MCV)Ordered By: Azael Jackson on 05-11-2023 MCV (RBC) [Entitic vol] 99.3 fL 80-94 [facility] Hematocrit Auto (Bld) [Volum e fraction]Ordered By: Azael Jackson on 05-11-2023 Hematocrit (Bld) [Volume fraction] 40.2 % 40-54 [facility] MCHC Auto (RBC) [Mass/Vol]Or dered By: Azael Jackson on 05-11-2023 MCHC (RBC) [Mass/Vol] 33.1 g/dL 32-36 [facility] No Panel InformationOrdered By: Azael Jackson on 05-11-2023 32.8 pg 27.0-32.0 [facility] 14.7 % 11.6-14.6 [facility] 53.5 fl 35.1-43.9 [facility] 1.300 % 0.0-0.9 [facility] 0 % 0-5 [facility] 42 mL/min >60 [facility] 51 mL/min >60 [facility] 22.9 RATIO 10-20 [facility] 3.8 g/dL 2.2-4.2 [facility] 99 U/L 45-117 [facility] 23 U/L 16-61 [facility] 23.0 mmol/L 21.0-32.0 [facility] Platelets bldOrdered By: Leonardo Jackson on 05-11-2023 Platelets (Bld) [#/Vol] 103 10*3/uL 150-450 [facility] Serum or plasma albumin aby urement (mass/volume)Ordered By: Azael Jackson on 05-11-2023 Albumin [Mass/Vol] 3.1 g/dL 3.2-5.0 [facility] Serum or plasma albumin/glob ulin mass ratioOrdered By: Azael Jackson on 05-11-2023 Albumin/Globulin [Mass ratio] 0.8 {ratio} 0.9-2.4 [facility] Serum or plasma calcium aby urement (mass/volume)Ordered By: Azael Jackson on 05-11-2023 Calcium [Mass/Vol] 8.9 mg/dL 8.5-10.1 [facility] Serum or plasma creatinine m easurement (mass/volume)Ordered By: Azael Jackson on 05-11-2023 Creatinine [Mass/Vol] 1.70 mg/dL 0.70-1.30 [facility] Serum or plasma urea nitroge n measurement (mass/volume)Ordered By: Azael Jackson on 05-11-2023 Urea nitrogen [Mass/Vol] 39 mg/dL 7-18 [facility] Thin prep Papanicolaou smear with manual screeningOrdered By: Azael Jackson on 05-11-2023 Thin prep Papanicolaou smear with manual screening 13 U/L 15-37 [facility] Thin prep Papanicolaou smear with manual screening 7 5-15 [facility] Absolute lymphocyte countOrd ered By: Azael Jackson on 05-03-2023 Lymphocytes Auto (Unsp spec) [#/Vol] 0.65 10*3/uL 0.83-4.51 [facility] Basophil percentageOrdered B y: Azael Jackson on 05-03-2023 Basophil percentage 197 mg/dL 74-106 [facility] Basophil percentage 7.3 g/dL 6.4-8.2 [facility] Basophil percentage 0.60 mg/dL 0.20-1.00 [facility] Basophil percentage 139 mmol/L 136-145 [facility] Basophil percentage 3.6 mmol/L 3.5-5.1 [facility] Basophil percentage 110 mmol/L 98-107 [facility] Basophil percentage < 10.0 umol/L 11-32 [facility] Basophils (Bld) [#/Vol] 9.0 10*3/uL 4.4-11.0 [facility] Basophils (Bld) [#/Vol] 7.4 10*3/uL 2.0-7.7 [facility] Basophils/100 WBC (Bld) 82.8 % 47-70 [facility] Basophils/100 WBC (Bld) 0.8 % 0-5 [facility] Basophils/100 WBC (Bld) 0.4 % 0-1 [facility] Blood erythrocytes count (nu mber/volume)Ordered By: Azael Jackson on 05-03-2023 RBC (Bld) [#/Vol] 4.29 10*6/uL 4.6-6.2 [facility] Blood hemoglobin measurement (mass/volume)Ordered By: Azael Jackson on 05-03-2023 Hemoglobin (Bld) [Mass/Vol] 13.8 g/dL 13.0-16.5 [facility] Blood lymphocytes/100 leukoc ytesOrdered By: Azael Jackson on 05-03-2023 Lymphocytes/100 WBC (Bld) 7.2 % 19-41 [facility] Blood monocytes/100 leukocyt esOrdered By: Azael Jackson on 05-03-2023 Monocytes/100 WBC (Bld) 6.8 % 0-10 [facility] Blood platelet mean volumeOr dered By: Azael Jackson on 05-03-2023 Platelet mean volume (Bld) [Entitic vol] 12.2 fL 6.2-12.0 [facility] Determination of erythrocyte mean corpuscular volume (MCV)Ordered By: Azael Jackson on 06-27-2023 MCV (RBC) [Entitic vol] 98.8 fL 80-94 [facility] Hematocrit Auto (Bld) [Volum e fraction]Ordered By: Azael Jackson on 05-03-2023 Hematocrit (Bld) [Volume fraction] 42.4 % 40-54 [facility] MCHC Auto (RBC) [Mass/Vol]Or dered By: Azael Jackson on 05-03-2023 MCHC (RBC) [Mass/Vol] 32.5 g/dL 32-36 [facility] No Panel InformationOrdered By: Azael Jackson on 05-03-2023 < 0.01 ng/mL 0.0-4.0 [facility] 32.2 pg 27.0-32.0 [facility] 13.8 % 11.6-14.6 [facility] 49.8 fl 35.1-43.9 [facility] 2.000 % 0.0-0.9 [facility] 0 % 0-5 [facility] 46 mL/min >60 [facility] 56 mL/min >60 [facility] 20.3 RATIO 10-20 [facility] 4.0 g/dL 2.2-4.2 [facility] 109 U/L 45-117 [facility] 28 U/L 16-61 [facility] 23.0 mmol/L 21.0-32.0 [facility] Platelets bldOrdered By: Leonardo Jackson on 05-03-2023 Platelets (Bld) [#/Vol] 144 10*3/uL 150-450 [facility] Serum or plasma albumin aby urement (mass/volume)Ordered By: Azael Jackson on 05-03-2023 Albumin [Mass/Vol] 3.3 g/dL 3.2-5.0 [facility] Serum or plasma albumin/glob ulin mass ratioOrdered By: Azael Jackson on 05-03-2023 Albumin/Globulin [Mass ratio] 0.8 {ratio} 0.9-2.4 [facility] Serum or plasma calcium aby urement (mass/volume)Ordered By: Azael Jackson on 05-03-2023 Calcium [Mass/Vol] 9.5 mg/dL 8.5-10.1 [facility] Serum or plasma creatinine m easurement (mass/volume)Ordered By: Azael Jackson on 05-03-2023 Creatinine [Mass/Vol] 1.58 mg/dL 0.70-1.30 [facility] Serum or plasma urea nitroge n measurement (mass/volume)Ordered By: Azael Jackson on 05-03-2023 Urea nitrogen [Mass/Vol] 32 mg/dL 7-18 [facility] Thin prep Papanicolaou smear with manual screeningOrdered By: [facility] on 05-03-2023 Thin prep Papanicolaou smear with manual screening 14 U/L 15-37 [facility] Thin prep Papanicolaou smear with manual screening 6 5-15 [facility] Absolute lymphocyte countOrd ered By: Martha Ashby on 04-26-2023 Lymphocytes Auto (Unsp spec) [#/Vol] 0.62 10*3/uL 0.83-4.51 [facility] Basophil percentageOrdered B y: Martha Ashby on 04-26-2023 Basophil percentage 95 mg/dL 74-106 [facility] Basophil percentage 6.7 g/dL 6.4-8.2 [facility] Basophil percentage 0.70 mg/dL 0.20-1.00 [facility] Basophil percentage 143 mmol/L 136-145 [facility] Basophil percentage 3.6 mmol/L 3.5-5.1 [facility] Basophil percentage 109 mmol/L 98-107 [facility] Basophil percentage 38.0 umol/L 11-32 [facility] Basophils (Bld) [#/Vol] 6.5 10*3/uL 4.4-11.0 [facility] Basophils (Bld) [#/Vol] 5.1 10*3/uL 2.0-7.7 [facility] Basophils/100 WBC (Bld) 78.6 % 47-70 [facility] Basophils/100 WBC (Bld) 4.9 % 0-5 [facility] Basophils/100 WBC (Bld) 0.5 % 0-1 [facility] Blood erythrocytes count (nu mber/volume)Ordered By: Martha Ashby on 04-26-2023 RBC (Bld) [#/Vol] 3.61 10*6/uL 4.6-6.2 [facility] Blood hemoglobin measurement (mass/volume)Ordered By: Martha Ashby on 04-26-2023 Hemoglobin (Bld) [Mass/Vol] 11.6 g/dL 13.0-16.5 [facility] Blood lymphocytes/100 leukoc ytesOrdered By: Martha Ashby on 04-26-2023 Lymphocytes/100 WBC (Bld) 9.6 % 19-41 [facility] Blood monocytes/100 leukocyt esOrdered By: Martha Ashby on 04-26-2023 Monocytes/100 WBC (Bld) 5.9 % 0-10 [facility] Blood platelet mean volumeOr dered By: Martha Ashby on 04-26-2023 Platelet mean volume (Bld) [Entitic vol] 11.5 fL 6.2-12.0 [facility] Determination of erythrocyte mean corpuscular volume (MCV)Ordered By: Martha Ashby on 04-26-2023 MCV (RBC) [Entitic vol] 96.1 fL 80-94 [facility] Hematocrit Auto (Bld) [Volum e fraction]Ordered By: Martha Ashby on 04-26-2023 Hematocrit (Bld) [Volume fraction] 34.7 % 40-54 [facility] MCHC Auto (RBC) [Mass/Vol]Or dered By: Martha Ashby on 04-26-2023 MCHC (RBC) [Mass/Vol] 33.4 g/dL 32-36 [facility] No Panel InformationOrdered By: Martha Ashby on 04-26-2023 32.1 pg 27.0-32.0 [facility] 13.2 % 11.6-14.6 [facility] 47.0 fl 35.1-43.9 [facility] 0.500 % 0.0-0.9 [facility] 0 % 0-5 [facility] 65 mL/min >60 [facility] 78 mL/min >60 [facility] 20.3 RATIO 10-20 [facility] 3.7 g/dL 2.2-4.2 [facility] 99 U/L 45-117 [facility] 19 U/L 16-61 [facility] 31.0 mmol/L 21.0-32.0 [facility] Platelets bldOrdered By: Sukhjinder Ashby on 04-26-2023 Platelets (Bld) [#/Vol] 140 10*3/uL 150-450 [facility] Serum or plasma albumin aby urement (mass/volume)Ordered By: Martha Ashby on 04-26-2023 Albumin [Mass/Vol] 3.0 g/dL 3.2-5.0 [facility] Serum or plasma albumin/glob ulin mass ratioOrdered By: Martha Ashby on 04-26-2023 Albumin/Globulin [Mass ratio] 0.8 {ratio} 0.9-2.4 [facility] Serum or plasma calcium aby urement (mass/volume)Ordered By: Martha Ashby on 04-26-2023 Calcium [Mass/Vol] 9.0 mg/dL 8.5-10.1 [facility] Serum or plasma creatinine m easurement (mass/volume)Ordered By: Martha Ashby on 04-26-2023 Creatinine [Mass/Vol] 1.18 mg/dL 0.70-1.30 [facility] Serum or plasma urea nitroge n measurement (mass/volume)Ordered By: Martha Ashby on 04-26-2023 Urea nitrogen [Mass/Vol] 24 mg/dL 7-18 [facility] Thin prep Papanicolaou smear with manual screeningOrdered By: Martha Ashby on 04-26-2023 Thin prep Papanicolaou smear with manual screening 23 U/L 15-37 [facility] Thin prep Papanicolaou smear with manual screening 3 5-15 [facility] Absolute lymphocyte countOrd ered By: Dr. Turner on 04-25-2023 Lymphocytes Auto (Unsp spec) [#/Vol] 0.54 10*3/uL 0.83-4.51 [facility] Basophil percentageOrdered B y: Fior Turner on 04-25-2023 Basophil percentage 144 mg/dL 74-106 [facility] Basophil percentage 144 mmol/L 136-145 [facility] Basophil percentage 3.8 mmol/L 3.5-5.1 [facility] Basophil percentage 112 mmol/L 98-107 [facility] Basophils (Bld) [#/Vol] 6.6 10*3/uL 4.4-11.0 [facility] Basophils (Bld) [#/Vol] 5.3 10*3/uL 2.0-7.7 [facility] Basophils/100 WBC (Bld) 80.5 % 47-70 [facility] Basophils/100 WBC (Bld) 3.2 % 0-5 [facility] Basophil percentageOrdered B y: Dr. Turner on 04-25-2023 Basophils/100 WBC (Bld) 0.3 % 0-1 [facility] Chloride [Moles/Vol] 112 mmol/L 98-107 [facility] Eosinophils/100 WBC (Bld) 3.2 % 0-5 [facility] Glucose [Mass/Vol] 144 mg/dL 74-106 [facility] Comment on above: Fasting Glucose resu lt greater than or equal to 126 mg/dL suggests DIABETES MELLITUS per A.D.A. criteria. Neutrophils (Bld) [#/Vol] 5.3 10*3/uL 2.0-7.7 [facility] Neutrophils/100 WBC (Bld) 80.5 % 47-70 [facility] Potassium [Moles/Vol] 3.8 mmol/L 3.5-5.1 [facility] Sodium [Moles/Vol] 144 mmol/L 136-145 [facility] WBC (Bld) [#/Vol] 6.6 10*3/uL 4.4-11.0 [facility] Blood erythrocytes count (nu mber/volume)Ordered By: Dr. Turner on 04-25-2023 RBC (Bld) [#/Vol] 3.50 10*6/uL 4.6-6.2 [facility] Blood hemoglobin measurement (mass/volume)Ordered By: Dr. Turner on 04-25-2023 Hemoglobin (Bld) [Mass/Vol] 11.3 g/dL 13.0-16.5 [facility] Blood lymphocytes/100 leukoc ytesOrdered By: Dr. Turner on 04-25-2023 Lymphocytes/100 WBC (Bld) 8.2 % -41 [facility] Blood monocytes/100 leukocyt esOrdered By: Dr. Turner on 04-25-2023 Monocytes/100 WBC (Bld) 7.0 % 0-10 [facility] Blood platelet adequacy dete ction by light microscopyOrdered By: Dr. Turner on 04-25-2023 Platelets LM Ql (Bld) SLT DEC ADEQ [facility] Blood platelet mean volumeOr dered By: Dr. Turner on 04-25-2023 Platelet mean volume (Bld) [Entitic vol] 11.4 fL 6.2-12.0 [facility] COVID-19 virus antigen assay Ordered By: Maximo Addison on 04-25-2023 SARS-CoV-2 (COVID-19) Ag IA.rapid Ql (Resp) [facility] COVID-19 virus antigen assay Ordered By: Dr. Addison on 04-25-2023 SARS-CoV-2 (COVID-19) Ag IA.rapid Ql (Resp) [facility] Determination of erythrocyte mean corpuscular volume (MCV)Ordered By: Dr. Turner on 04-25-2023 MCV (RBC) [Entitic vol] 100.6 fL 80-94 [facility] Hematocrit Auto (Bld) [Volum e fraction]Ordered By: Dr. Turner on 04-25-2023 Hematocrit (Bld) [Volume fraction] 35.2 % 40-54 [facility] - Chemistry and C hemistry - challengeOrdered By: Dr. Turner on 04-25-2023 CO2 [Moles/Vol] 28.0 mmol/L 21.0-32.0 [facility] Urea nitrogen/Creatinine [Mass ratio] 26.4 mg/mg 10-20 [facility] - Hematology and Cell countsOrdered By: Dr. Turner on 04-25-2023 Erythrocyte distribution width (RBC) [Entitic vol] 49.8 fL 35.1-43.9 [facility] Erythrocyte distribution width (RBC) [Ratio] 13.5 % 11.6-14.6 [facility] Immature granulocytes/100 WBC (Bld) 0.800 % 0.0-0.9 [facility] Comment on above: IG% - Immature Granu locytes (promyelocytes, myelocytes and metamyelocytes) > 1% indicates that a LEFT SHIFT is Present. MCH (RBC) [Entitic mass] 32.3 pg 27.0-32.0 [facility] Nucleated RBC/100 WBC (Bld) [Ratio] 0 % 0-5 [facility] MCHC Auto (RBC) [Mass/Vol]Or dered By: Dr. Turner on 04-25-2023 MCHC (RBC) [Mass/Vol] 32.1 g/dL 32-36 [facility] Macrocytes detectionOrdered By: Dr. Turner on 04-25-2023 Macrocytes Ql (Bld) 1+ [facility] No Panel InformationOrdered By: Dr. Turner on 04-25-2023 Estimated Creatinine Clearance Calc 53.28 ml/min [facility] Estimated GFR (MDRD) Amer 71 mL/min >60 [facility] Comment on above: GFR Calc Estimated GFR (MDRD) Non-Af Amer 58 mL/min >60 [facility] Comment on above: Non- GFR Calc No Panel InformationOrdered By: Fior Turner on 04-25-2023 32.3 pg 27.0-32.0 [facility] 13.5 % 11.6-14.6 [facility] 49.8 fl 35.1-43.9 [facility] 0.800 % 0.0-0.9 [facility] 0 % 0-5 [facility] 58 mL/min >60 [facility] 71 mL/min >60 [facility] 53.28 ml/min [facility] 26.4 RATIO 10-20 [facility] 28.0 mmol/L 21.0-32.0 [facility] Platelets bldOrdered By: Dr. Turner on 04-25-2023 Platelets (Bld) [#/Vol] 120 10*3/uL 150-450 [facility] Serum or plasma calcium aby urement (mass/volume)Ordered By: Dr. Turner on 04-25-2023 Calcium [Mass/Vol] 8.9 mg/dL 8.5-10.1 [facility] [facility] Serum or plasma creatinine m easurement (mass/volume)Ordered By: Dr. Turner on 04-25-2023 Creatinine [Mass/Vol] 1.29 mg/dL 0.70-1.30 [facility] Comment on above: The validity of the calculated GFR & GFRAA in patients over 70 years has not been determined. Clinical correlation is essential. Serum or plasma urea nitroge n measurement (mass/volume)Ordered By: Dr. Turner on 04-25-2023 Urea nitrogen [Mass/Vol] 34 mg/dL 7-18 [facility] Thin prep Papanicolaou smear with manual screeningOrdered By: Dr. Turner on 04-25-2023 Thin prep Papanicolaou smear with manual screening 4 5-15 [facility] Blood manual differential co mment interpretation (narrative result)Ordered By: Dr. Turner on 04-24-2023 Manual differential comment Timur (Bld) [Interp] SCANNED [facility] Glucose Glucometer (BldC) [M ass/Vol]Ordered By: Dr. Turner on 04-24-2023 Glucose [Mass/Vol] 209 mg/dL 74-106 [facility] Comment on above: MANAGEMENT OF PATIEN T CARE PER NURSING PROTOCOL Absolute lymphocyte countOrd ered By: Dr. Olivia on 04-23-2023 Lymphocytes Auto (Unsp spec) [#/Vol] 0.63 10*3/uL 0.83-4.51 [facility] Basophil percentageOrdered B y: Dr. Olivia on 04-23-2023 Basophil percentage 0 SEEN /hpf 0-5 [facility] Ammonia (P) [Moles/Vol] 13.0 umol/L 11-32 [facility] Basophils/100 WBC (Bld) 0.3 % 0-1 [facility] Bilirubin [Mass/Vol] 0.90 mg/dL 0.20-1.00 [facility] Comment on above: For patients on eltr ombopag therapy, use of Dimension [place] TBIL is not recommended. Chloride [Moles/Vol] 104 mmol/L 98-107 [facility] Eosinophils/100 WBC (Bld) 0.7 % 0-5 [facility] Glucose [Mass/Vol] 146 mg/dL 74-106 [facility] Comment on above: Fasting Glucose resu lt greater than or equal to 126 mg/dL suggests DIABETES MELLITUS per A.D.A. criteria. Neutrophils (Bld) [#/Vol] 7.4 10*3/uL 2.0-7.7 [facility] Neutrophils/100 WBC (Bld) 84.7 % 47-70 [facility] Potassium [Moles/Vol] 4.1 mmol/L 3.5-5.1 [facility] Protein [Mass/Vol] 8.3 g/dL 6.4-8.2 [facility] Sodium [Moles/Vol] 143 mmol/L 136-145 [facility] WBC (Bld) [#/Vol] 8.8 10*3/uL 4.4-11.0 [facility] Basophil percentageOrdered B y: Goldy Olivia on 04-23-2023 Basophil percentage 8.3 g/dL 6.4-8.2 [facility] Basophil percentage 0.90 mg/dL 0.20-1.00 [facility] Basophil percentage 13.0 umol/L 11-32 [facility] Bilirubin Test strip Ql (U)O rdered By: Dr. Olivia on 04-23-2023 Bilirubin Ql (U) Negative Negative [facility] Blood erythrocytes count (nu mber/volume)Ordered By: Dr. Olivia on 04-23-2023 RBC (Bld) [#/Vol] 4.25 10*6/uL 4.6-6.2 [facility] Blood hemoglobin measurement (mass/volume)Ordered By: Dr. Olivia on 04-23-2023 Hemoglobin (Bld) [Mass/Vol] 13.9 g/dL 13.0-16.5 [facility] Blood lymphocytes/100 leukoc ytesOrdered By: Dr. Olivia on 04-23-2023 Lymphocytes/100 WBC (Bld) 7.2 % 19-41 [facility] Blood monocytes/100 leukocyt esOrdered By: Dr. Olivia on 04-23-2023 Monocytes/100 WBC (Bld) 6.6 % 0-10 [facility] Blood platelet mean volumeOr dered By: Dr. Olivia on 04-23-2023 Platelet mean volume (Bld) [Entitic vol] 11.3 fL 6.2-12.0 [facility] Determination of erythrocyte mean corpuscular volume (MCV)Ordered By: Dr. Olivia on 04-23-2023 MCV (RBC) [Entitic vol] 97.4 fL 80-94 [facility] Hematocrit Auto (Bld) [Volum e fraction]Ordered By: Dr. Olivia on 04-23-2023 Hematocrit (Bld) [Volume fraction] 41.4 % 40-54 [facility] INR in Blood by Coagulation assayOrdered By: Dr. Olivia on 04-23-2023 INR Coag (Bld) [Relative time] 1.7 {INR} [facility] Influenza virus A and B and SARS-CoV-2 (COVID-19) Ag panel - Upper respiratory specimOrdered By: Dr. Olivia on 04-23-2023 SARS-CoV-2 (COVID-19) RNA ANUJ+probe Ql (Resp) [facility] Ketones Test strip Ql (U)Ord ered By: Dr. Olivia on 04-23-2023 Ketones Ql (U) Negative Negative [facility] Laboratory - Chemistry and C hemistry - challengeOrdered By: Dr. Olivia on 04-23-2023 ALP [Catalytic activity/Vol] 130 U/L 45-117 [facility] ALT [Catalytic activity/Vol] 22 U/L 16-61 [facility] CO2 [Moles/Vol] 31.0 mmol/L 21.0-32.0 [facility] Globulin (S) [Mass/Vol] 4.6 g/dL 2.2-4.2 [facility] Lipase [Catalytic activity/Vol] 11 U/L 13-75 [facility] Comment on above: Please note:LIPASE r evised reference range effective 23. New Lipase methodology. Expected to produce lower values than the previous assay method. NEW Reference Range: 13 - 75 U/L Urea nitrogen/Creatinine [Mass ratio] 27.9 mg/mg 10-20 [facility] Laboratory - CoagulationOrde red By: Dr. Olivia on 04-23-2023 aPTT Coag (Bld) [Time] 34.0 s 24.1-36.2 [facility] PT Coag (PPP) [Time] 20.3 s 11.7-14.9 [facility] Laboratory - Hematology and Cell countsOrdered By: Dr. Olivia on 04-23-2023 Erythrocyte distribution width (RBC) [Entitic vol] 49.1 fL 35.1-43.9 [facility] Erythrocyte distribution width (RBC) [Ratio] 13.7 % 11.6-14.6 [facility] Immature granulocytes/100 WBC (Bld) 0.500 % 0.0-0.9 [facility] Comment on above: IG% - Immature Granu locytes (promyelocytes, myelocytes and metamyelocytes) > 1% indicates that a LEFT SHIFT is Present. MCH (RBC) [Entitic mass] 32.7 pg 27.0-32.0 [facility] Nucleated RBC/100 WBC (Bld) [Ratio] 0 % 0-5 [facility] MCHC Auto (RBC) [Mass/Vol]Or dered By: Dr. Olivia on 04-23-2023 MCHC (RBC) [Mass/Vol] 33.6 g/dL 32-36 [facility] Mucus LM Ql (Urine sed)Order ed By: Dr. Olivia on 04-23-2023 Mucus Ql (Urine sed) 0 SEEN /hpf [facility] Nitrite Test strip Ql (U)Ord ered By: Dr. Olivia on 04-23-2023 Nitrite Ql (U) Negative Negative [facility] No Panel InformationOrdered By: Dr. Olivia on 04-23-2023 Troponin I High Sensitivity 124 pg/mL 3.0-78.0 [facility] Comment on above: Critical Result(s) C alled at: 13:42:05 04/23/2023 by: Song Trinh RN (ER). Results read back by same. Please Note: New Test Units and Gender Specific Reference Ranges. For more information see Policy Stat Procedure [place] High Sensitivity Troponin (TNIH) and attachments. Estimated Creatinine Clearance Calc 33.69 ml/min [facility] Estimated GFR (MDRD) Amer 42 mL/min >60 [facility] Comment on above: GFR Calc Estimated GFR (MDRD) Non-Af Amer 34 mL/min >60 [facility] Comment on above: Non- GFR Calc No Panel InformationOrdered By: Goldy Olivia on 06-17-2023 124 pg/mL 3.0-78.0 [facility] 20.3 SECONDS 11.7-14.9 [facility] 34.0 Seconds 24.1-36.2 [facility] 4.6 g/dL 2.2-4.2 [facility] 11 U/L 13-75 [facility] 130 U/L 45-117 [facility] 22 U/L 16-61 [facility] Platelets bldOrdered By: Dr. Olivia on 04-23-2023 Platelets (Bld) [#/Vol] 183 10*3/uL 150-450 [facility] Protein Test strip Ql (U)Ord ered By: Dr. Olivia on 04-23-2023 Protein Ql (U) 15 mg/dl Negative [facility] Serum or plasma albumin aby urement (mass/volume)Ordered By: Dr. Olivia on 04-23-2023 Albumin [Mass/Vol] 3.7 g/dL 3.2-5.0 [facility] Serum or plasma albumin/glob ulin mass ratioOrdered By: Dr. Olivia on 04-23-2023 Albumin/Globulin [Mass ratio] 0.8 {ratio} 0.9-2.4 [facility] Serum or plasma calcium aby urement (mass/volume)Ordered By: Dr. Olivia on 04-23-2023 Calcium [Mass/Vol] 9.9 mg/dL 8.5-10.1 [facility] Serum or plasma creatinine m easurement (mass/volume)Ordered By: Dr. Olivia on 04-23-2023 Creatinine [Mass/Vol] 2.04 mg/dL 0.70-1.30 [facility] Comment on above: The validity of the calculated GFR & GFRAA in patients over 70 years has not been determined. Clinical correlation is essential. Serum or plasma urea nitroge n measurement (mass/volume)Ordered By: Dr. Olivia on 04-23-2023 Urea nitrogen [Mass/Vol] 57 mg/dL 7-18 [facility] Squamous epithelial cells de tection in urine sediment by light microscopyOrdered By: Dr. Olivia on 04-23-2023 Epithelial cells.squamous LM Ql (Urine sed) 0-5 SEEN /hpf 0-5 [facility] Thin prep Papanicolaou smear with manual screeningOrdered By: Dr. Olivia on 04-23-2023 Thin prep Papanicolaou smear with manual screening 23 U/L 15-37 [facility] Thin prep Papanicolaou smear with manual screening 8 5-15 [facility] Urine blood detectionOrdered By: Dr. Olivia on 04-23-2023 RBC Ql (U) Negative Negative [facility] RBC Ql (U) 0 SEEN /hpf 0-5 [facility] Urine clarityOrdered By: Dr. Olivia on 04-23-2023 Clarity (U) Clear Clear [facility] Urine color determinationOrd ered By: Dr. Olivia on 04-23-2023 Color (U) Yellow Yellow [facility] Urine glucose detectionOrder ed By: Dr. Olivia on 04-23-2023 Glucose Ql (U) Normal mg/dl Normal [facility] Urine leukocyte esterase det ection by dipstickOrdered By: Dr. Olivia on 04-23-2023 Leukocyte esterase Test strip Ql (U) Negative Negative [facility] Urine pHOrdered By: Dr. Sunny means on 04-23-2023 pH (U) 5.0 [pH] 5.0 - 8.0 [facility] Urine sediment bacteria coun t by microscopy (number/high power field)Ordered By: Dr. Olivia on 04-23-2023 Bacteria LM.HPF (Urine sed) [#/Area] 0 /[HPF] None Seen [facility] Urine specific gravity measu rementOrdered By: Dr. Olivia on 04-23-2023 Specific gravity (U) [Rel density] 1.020 1.002-1.03 0 [facility] Urobilinogen Auto test strip Ql (U)Ordered By: Dr. Olivia on 04-23-2023 Urobilinogen Ql (U) Normal mg/dl Normal [facility] Absolute lymphocyte countOrd ered By: Martha Ashby on 04-19-2023 Lymphocytes Auto (Unsp spec) [#/Vol] 0.49 10*3/uL 0.83-4.51 [facility] Basophil percentageOrdered B y: Martha Ashby on 04-19-2023 Ammonia (P) [Moles/Vol] 27.0 umol/L 11-32 [facility] Basophil percentage 136 mg/dL 74-106 [facility] Basophil percentage 7.3 g/dL 6.4-8.2 [facility] Basophil percentage 0.70 mg/dL 0.20-1.00 [facility] Basophil percentage 153 mg/dL <200 [facility] Basophil percentage 84 mg/dL <199 [facility] Basophil percentage 140 mmol/L 136-145 [facility] Basophil percentage 3.9 mmol/L 3.5-5.1 [facility] Basophil percentage 104 mmol/L 98-107 [facility] Basophil percentage 27.0 umol/L 11-32 [facility] Basophils (Bld) [#/Vol] 6.6 10*3/uL 4.4-11.0 [facility] Basophils (Bld) [#/Vol] 5.4 10*3/uL 2.0-7.7 [facility] Basophils/100 WBC (Bld) 0.5 % 0-1 [facility] Basophils/100 WBC (Bld) 80.8 % 47-70 [facility] Basophils/100 WBC (Bld) 4.2 % 0-5 [facility] Bilirubin [Mass/Vol] 0.70 mg/dL 0.20-1.00 [facility] Comment on above: For patients on eltr ombopag therapy, use of Dimension [place] TBIL is not recommended. Chloride [Moles/Vol] 104 mmol/L 98-107 [facility] Cholesterol [Mass/Vol] 153 mg/dL <200 [facility] Comment on above: <200 mg/dL Desirable 200-240 mg/dL Borderline >240 mg/dL High Risk Eosinophils/100 WBC (Bld) 4.2 % 0-5 [facility] Glucose [Mass/Vol] 136 mg/dL 74-106 [facility] Comment on above: Fasting Glucose resu lt greater than or equal to 126 mg/dL suggests DIABETES MELLITUS per A.D.A. criteria. Neutrophils (Bld) [#/Vol] 5.4 10*3/uL 2.0-7.7 [facility] Neutrophils/100 WBC (Bld) 80.8 % 47-70 [facility] Potassium [Moles/Vol] 3.9 mmol/L 3.5-5.1 [facility] Protein [Mass/Vol] 7.3 g/dL 6.4-8.2 [facility] Sodium [Moles/Vol] 140 mmol/L 136-145 [facility] Triglyceride [Mass/Vol] 84 mg/dL <199 [facility] Comment on above: The drugs N-Acetylcy steine and Metamizole may falsely depress this assay.Serum Triglycerides Reference Interval Normal <150 mg/dL Borderline high 150 - 199 mg/dL High 200 - 499 mg/dL Very High > or = 500 mg/dL WBC (Bld) [#/Vol] 6.6 10*3/uL 4.4-11.0 [facility] Blood erythrocytes count (nu mber/volume)Ordered By: Martha Ashby on 04-19-2023 RBC (Bld) [#/Vol] 3.93 10*6/uL 4.6-6.2 [facility] Blood hemoglobin measurement (mass/volume)Ordered By: Martha Ashby on 04-19-2023 Hemoglobin (Bld) [Mass/Vol] 12.9 g/dL 13.0-16.5 [facility] Blood lymphocytes/100 leukoc ytesOrdered By: Martha Ashby on 04-19-2023 Lymphocytes/100 WBC (Bld) 7.4 % 19-41 [facility] Blood manual differential co mment interpretation (narrative result)Ordered By: Martha Ashby on 04-19-2023 Manual differential comment Timur (Bld) [Interp] SCANNED [facility] Blood monocytes/100 leukocyt esOrdered By: Martha Ashby on 04-19-2023 Monocytes/100 WBC (Bld) 6.2 % 0-10 [facility] Blood platelet mean volumeOr dered By: Martha Ashby on 04-19-2023 Platelet mean volume (Bld) [Entitic vol] 11.4 fL 6.2-12.0 [facility] Determination of erythrocyte mean corpuscular volume (MCV)Ordered By: Martha Ashby on 04-19-2023 MCV (RBC) [Entitic vol] 95.7 fL 80-94 [facility] Hematocrit Auto (Bld) [Volum e fraction]Ordered By: Martha Ashby on 04-19-2023 Hematocrit (Bld) [Volume fraction] 37.6 % 40-54 [facility] Laboratory - Chemistry and C hemistry - challengeOrdered By: Martha Ashby on 04-19-2023 ALP [Catalytic activity/Vol] 120 U/L 45-117 [facility] ALT [Catalytic activity/Vol] 16 U/L 16-61 [facility] CO2 [Moles/Vol] 31.0 mmol/L 21.0-32.0 [facility] Cobalamin (Vitamin B12) [Mass/Vol] 1764 pg/mL 211-911 [facility] Globulin (S) [Mass/Vol] 4.0 g/dL 2.2-4.2 [facility] Urea nitrogen/Creatinine [Mass ratio] 21.3 mg/mg 10-20 [facility] - Hematology and Cell countsOrdered By: Martha Ashby on 04-19-2023 Erythrocyte distribution width (RBC) [Entitic vol] 47.4 fL 35.1-43.9 [facility] Erythrocyte distribution width (RBC) [Ratio] 13.5 % 11.6-14.6 [facility] Immature granulocytes/100 WBC (Bld) 0.900 % 0.0-0.9 [facility] Comment on above: IG% - Immature Granu locytes (promyelocytes, myelocytes and metamyelocytes) > 1% indicates that a LEFT SHIFT is Present. MCH (RBC) [Entitic mass] 32.8 pg 27.0-32.0 [facility] Nucleated RBC/100 WBC (Bld) [Ratio] 0 % 0-5 [facility] MCHC Auto (RBC) [Mass/Vol]Or dered By: Martha Ashby on 04-19-2023 MCHC (RBC) [Mass/Vol] 34.3 g/dL 32-36 [facility] No Panel InformationOrdered By: Martha Ashby on 04-19-2023 Estimated GFR (MDRD) Amer 64 mL/min >60 [facility] Comment on above: GFR Calc Estimated GFR (MDRD) Non-Af Amer 53 mL/min >60 [facility] Comment on above: Non- GFR Calc 32.8 pg 27.0-32.0 [facility] 13.5 % 11.6-14.6 [facility] 47.4 fl 35.1-43.9 [facility] 0.900 % 0.0-0.9 [facility] 0 % 0-5 [facility] 53 mL/min >60 [facility] 64 mL/min >60 [facility] 21.3 RATIO 10-20 [facility] 4.0 g/dL 2.2-4.2 [facility] 120 U/L 45-117 [facility] 16 U/L 16-61 [facility] 31.0 mmol/L 21.0-32.0 [facility] 1764 pg/mL 211-911 [facility] Platelets bldOrdered By: Sukhjinder Ashby on 04-19-2023 Platelets (Bld) [#/Vol] 129 10*3/uL 150-450 [facility] Serum or plasma albumin aby urement (mass/volume)Ordered By: Martha Ashby on 04-19-2023 Albumin [Mass/Vol] 3.3 g/dL 3.2-5.0 [facility] Serum or plasma albumin/glob ulin mass ratioOrdered By: Martha Ashby on 04-19-2023 Albumin/Globulin [Mass ratio] 0.8 {ratio} 0.9-2.4 [facility] Serum or plasma calcium aby urement (mass/volume)Ordered By: Martha Ashby on 04-19-2023 Calcium [Mass/Vol] 9.3 mg/dL 8.5-10.1 [facility] Serum or plasma cholesterol in HDL measurement (mass/volume)Ordered By: Martha Ashby on 04-19-2023 Cholesterol in HDL [Mass/Vol] 37 mg/dL >40 [facility] Comment on above: The drugs N-Acetylcy steine and Metamizole may falsely depress this assay. Reference Range HDL <40 mg/dL Low HDL Cholesterol HDL >or= 60 mg/dL High HDL Cholesterol Serum or plasma cholesterol in VLDL measurement (mass/volume)Ordered By: Martha Ashby on 04-19-2023 Cholesterol in VLDL [Mass/Vol] 17 mg/dL 5-40 [facility] Serum or plasma creatinine m easurement (mass/volume)Ordered By: Martha Ashby on 04-19-2023 Creatinine [Mass/Vol] 1.41 mg/dL 0.70-1.30 [facility] Comment on above: The validity of the calculated GFR & GFRAA in patients over 70 years has not been determined. Clinical correlation is essential. Serum or plasma low density lipoprotein (LDL) cholesterol measurement (mass/volume)Ordered By: Martha Ashby on 04-19-2023 Cholesterol in LDL [Mass/Vol] 99 mg/dL 0-130 [facility] Serum or plasma urea nitroge n measurement (mass/volume)Ordered By: Martha Ashby on 04-19-2023 Urea nitrogen [Mass/Vol] 30 mg/dL 7-18 [facility] Thin prep Papanicolaou smear with manual screeningOrdered By: Martha Ashby on 04-19-2023 Thin prep Papanicolaou smear with manual screening 14 U/L 15-37 [facility] Thin prep Papanicolaou smear with manual screening 5 5-15 [facility] Whole blood hemoglobin A1c/t otal hemoglobin ratio (mass fraction)Ordered By: Martha Ashby on 04-19-2023 HbA1c (Bld) [Mass fraction] 7.4 % 3.8-5.6 [facility] Comment on above: Normal < 5.7 % Predi abetic 5.7 - 6.4 % Diabetic >or= 6.5 % Please note range changes. Absolute lymphocyte countOrd ered By: Dr. Turner on 04-16-2023 Lymphocytes Auto (Unsp spec) [#/Vol] 0.36 10*3/uL 0.83-4.51 [facility] Basophil percentageOrdered B y: Fior Turner on 04-16-2023 Basophil percentage 462 mg/dL 74-106 [facility] Basophil percentage 139 mmol/L 136-145 [facility] Basophil percentage 4.1 mmol/L 3.5-5.1 [facility] Basophil percentage 109 mmol/L 98-107 [facility] Basophils (Bld) [#/Vol] 4.7 10*3/uL 4.4-11.0 [facility] Basophils (Bld) [#/Vol] 3.7 10*3/uL 2.0-7.7 [facility] Basophils/100 WBC (Bld) 78.9 % 47-70 [facility] Basophils/100 WBC (Bld) 4.5 % 0-5 [facility] Basophil percentageOrdered B y: Dr. Turner on 04-16-2023 Basophils/100 WBC (Bld) 0.6 % 0-1 [facility] Chloride [Moles/Vol] 109 mmol/L 98-107 [facility] Eosinophils/100 WBC (Bld) 4.5 % 0-5 [facility] Glucose [Mass/Vol] 462 mg/dL 74-106 [facility] Comment on above: Critical Result(s) C alled at: 06:52:33 04/16/2023 by: Jean Pierre Kline. Titi Gomez RN (MS3). Results read back by same.Glucose result greater than or equal to 200 mg/dLsuggests DIABETES MELLITUS per A.D.A. criteria. Neutrophils (Bld) [#/Vol] 3.7 10*3/uL 2.0-7.7 [facility] Neutrophils/100 WBC (Bld) 78.9 % 47-70 [facility] Potassium [Moles/Vol] 4.1 mmol/L 3.5-5.1 [facility] Sodium [Moles/Vol] 139 mmol/L 136-145 [facility] WBC (Bld) [#/Vol] 4.7 10*3/uL 4.4-11.0 [facility] Blood erythrocytes count (nu mber/volume)Ordered By: Dr. Turner on 04-16-2023 RBC (Bld) [#/Vol] 3.31 10*6/uL 4.6-6.2 [facility] Blood hemoglobin measurement (mass/volume)Ordered By: Dr. Turner on 04-16-2023 Hemoglobin (Bld) [Mass/Vol] 11.0 g/dL 13.0-16.5 [facility] Blood lymphocytes/100 leukoc ytesOrdered By: Dr. Turner on 04-16-2023 Lymphocytes/100 WBC (Bld) 7.7 % 19-41 [facility] Blood manual differential co mment interpretation (narrative result)Ordered By: Dr. Turner on 04-16-2023 Manual differential comment Timur (Bld) [Interp] SCANNED [facility] Comment on above: LYMPHOPENIA Blood monocytes/100 leukocyt esOrdered By: [address] Turner on 04-16-2023 Monocytes/100 WBC (Bld) 7.7 % 0-10 [facility] Blood platelet mean volumeOr dered By: Dr. Turner on 04-16-2023 Platelet mean volume (Bld) [Entitic vol] 11.5 fL 6.2-12.0 [facility] COVID-19 virus antigen assay Ordered By: Fior Turner on 04-16-2023 SARS-CoV-2 (COVID-19) Ag IA.rapid Ql (Resp) [facility] COVID-19 virus antigen assay Ordered By: Dr. Turner on 04-16-2023 SARS-CoV-2 (COVID-19) Ag IA.rapid Ql (Resp) [facility] Determination of erythrocyte mean corpuscular volume (MCV)Ordered By: Dr. Turner on 04-16-2023 MCV (RBC) [Entitic vol] 99.4 fL 80-94 [facility] Glucose Glucometer (BldC) [M ass/Vol]Ordered By: Dr. Turner on 04-16-2023 Glucose [Mass/Vol] 302 mg/dL 74-106 [facility] Comment on above: MANAGEMENT OF PATIEN T CARE PER NURSING PROTOCOL Hematocrit Auto (Bld) [Volum e fraction]Ordered By: Dr. Turner on 04-16-2023 Hematocrit (Bld) [Volume fraction] 32.9 % 40-54 [facility] - Chemistry and C hemistry - challengeOrdered By: Dr. Turner on 04-16-2023 CO2 [Moles/Vol] 26.0 mmol/L 21.0-32.0 [facility] Urea nitrogen/Creatinine [Mass ratio] 18.2 mg/mg 10-20 [facility] - Hematology and Cell countsOrdered By: Dr. Turner on 04-16-2023 Erythrocyte distribution width (RBC) [Entitic vol] 50.6 fL 35.1-43.9 [facility] Erythrocyte distribution width (RBC) [Ratio] 13.9 % 11.6-14.6 [facility] Immature granulocytes/100 WBC (Bld) 0.600 % 0.0-0.9 [facility] Comment on above: IG% - Immature Granu locytes (promyelocytes, myelocytes and metamyelocytes) > 1% indicates that a LEFT SHIFT is Present. MCH (RBC) [Entitic mass] 33.2 pg 27.0-32.0 [facility] Nucleated RBC/100 WBC (Bld) [Ratio] 0 % 0-5 [facility] MCHC Auto (RBC) [Mass/Vol]Or dered By: Dr. Turner on 04-16-2023 MCHC (RBC) [Mass/Vol] 33.4 g/dL 32-36 [facility] Comment on above: Delta: 31.8 on 04/15 No Panel InformationOrdered By: Dr. Turner on 04-16-2023 Estimated Creatinine Clearance Calc 48.07 ml/min [facility] Estimated GFR (MDRD) Amer 63 mL/min >60 [facility] Comment on above: GFR Calc Estimated GFR (MDRD) Non-Af Amer 52 mL/min >60 [facility] Comment on above: Non- GFR Calc No Panel InformationOrdered By: Fior Turner on 04-16-2023 33.2 pg 27.0-32.0 [facility] 13.9 % 11.6-14.6 [facility] 50.6 fl 35.1-43.9 [facility] 0.600 % 0.0-0.9 [facility] 0 % 0-5 [facility] 52 mL/min >60 [facility] 63 mL/min >60 [facility] 48.07 ml/min [facility] 18.2 RATIO 10-20 [facility] 26.0 mmol/L 21.0-32.0 [facility] Platelets bldOrdered By: Dr. Turner on 04-16-2023 Platelets (Bld) [#/Vol] 112 10*3/uL 150-450 [facility] Serum or plasma calcium aby urement (mass/volume)Ordered By: Dr. Turner on 04-16-2023 Calcium [Mass/Vol] 8.6 mg/dL 8.5-10.1 [facility] Serum or plasma creatinine m easurement (mass/volume)Ordered By: Dr. Turner on 04-16-2023 Creatinine [Mass/Vol] 1.43 mg/dL 0.70-1.30 [facility] Comment on above: The validity of the calculated GFR & GFRAA in patients over 70 years has not been determined. Clinical correlation is essential. Serum or plasma urea nitroge n measurement (mass/volume)Ordered By: Dr. Turner on 04-16-2023 Urea nitrogen [Mass/Vol] 26 mg/dL 7-18 [facility] Thin prep Papanicolaou smear with manual screeningOrdered By: Dr. Turner on 04-16-2023 Thin prep Papanicolaou smear with manual screening 4 5-15 [facility] Blood platelet adequacy dete ction by light microscopyOrdered By: Dr. Turner on 04-15-2023 Platelets LM Ql (Bld) ADEQUATE ADEQ [facility] Macrocytes detectionOrdered By: Dr. Turner on 04-15-2023 Macrocytes Ql (Bld) 1+ [facility] - Hematology and Cell countsOrdered By: Dr. Orellana on 04-14-2023 Anisocytosis Ql (Bld) 1+ [facility] No Panel InformationOrdered By: Dr. Orellana on 04-14-2023 Thyroid Stimulating Hormone (TSH) 0.87 uIU/mL 0.358-3.74 [facility] No Panel InformationOrdered By: Norris Orellana on 04-14-2023 1+ [facility] 0.87 uIU/mL 0.358-3.74 [facility] Absolute lymphocyte countOrd ered By: Dr. Bliss on 04-13-2023 Lymphocytes Auto (Unsp spec) [#/Vol] 0.51 10*3/uL 0.83-4.51 [facility] Basophil percentageOrdered B y: Dr. Bliss on 04-13-2023 Basophil percentage 0 SEEN /hpf 0-5 [facility] Basophils/100 WBC (Bld) 0.4 % 0-1 [facility] Bilirubin [Mass/Vol] 0.60 mg/dL 0.20-1.00 [facility] Comment on above: For patients on eltr ombopag therapy, use of Dimension [place] TBIL is not recommended. Chloride [Moles/Vol] 103 mmol/L 98-107 [facility] Eosinophils/100 WBC (Bld) 3.3 % 0-5 [facility] Glucose [Mass/Vol] 134 mg/dL 74-106 [facility] Comment on above: Fasting Glucose resu lt greater than or equal to 126 mg/dL suggests DIABETES MELLITUS per A.D.A. criteria. Neutrophils (Bld) [#/Vol] 5.9 10*3/uL 2.0-7.7 [facility] Neutrophils/100 WBC (Bld) 80.2 % 47-70 [facility] Potassium [Moles/Vol] 4.0 mmol/L 3.5-5.1 [facility] Protein [Mass/Vol] 7.7 g/dL 6.4-8.2 [facility] Sodium [Moles/Vol] 138 mmol/L 136-145 [facility] WBC (Bld) [#/Vol] 7.3 10*3/uL 4.4-11.0 [facility] Basophil percentageOrdered B y: Dr. Orellana on 04-13-2023 Basophil percentage 2.8 mg/dL 2.5-4.9 [facility] Basophil percentageOrdered B y: Jo-Ann Bliss on 04-13-2023 Basophil percentage 7.7 g/dL 6.4-8.2 [facility] Basophil percentage 0.60 mg/dL 0.20-1.00 [facility] Bilirubin Test strip Ql (U)O rdered By: Dr. Bliss on 04-13-2023 Bilirubin Ql (U) Negative Negative [facility] Blood erythrocytes count (nu mber/volume)Ordered By: Dr. Bliss on 04-13-2023 RBC (Bld) [#/Vol] 4.04 10*6/uL 4.6-6.2 [facility] Blood hemoglobin measurement (mass/volume)Ordered By: Dr. Bliss on 04-13-2023 Hemoglobin (Bld) [Mass/Vol] 13.0 g/dL 13.0-16.5 [facility] Blood lymphocytes/100 leukoc ytesOrdered By: Dr. Bliss on 04-13-2023 Lymphocytes/100 WBC (Bld) 7.0 % 19-41 [facility] Blood manual differential co mment interpretation (narrative result)Ordered By: Dr. Bliss on 04-13-2023 Manual differential comment Timur (Bld) [Interp] SCANNED [facility] Blood monocytes/100 leukocyt esOrdered By: Dr. Bliss on 04-13-2023 Monocytes/100 WBC (Bld) 8.1 % 0-10 [facility] Blood platelet mean volumeOr dered By: Dr. Bliss on 04-13-2023 Platelet mean volume (Bld) [Entitic vol] 11.5 fL 6.2-12.0 [facility] Determination of erythrocyte mean corpuscular volume (MCV)Ordered By: Dr. Bliss on 04-13-2023 MCV (RBC) [Entitic vol] 96.8 fL 80-94 [facility] Hematocrit Auto (Bld) [Volum e fraction]Ordered By: Dr. Bliss on 04-13-2023 Hematocrit (Bld) [Volume fraction] 39.1 % 40-54 [facility] Ketones Test strip Ql (U)Ord ered By: Dr. Bliss on 04-13-2023 Ketones Ql (U) Negative Negative [facility] Laboratory - Chemistry and C hemistry - challengeOrdered By: Dr. Bliss on 04-13-2023 ALP [Catalytic activity/Vol] 117 U/L 45-117 [facility] ALT [Catalytic activity/Vol] 7 U/L 16-61 [facility] CO2 [Moles/Vol] 29.0 mmol/L 21.0-32.0 [facility] Globulin (S) [Mass/Vol] 4.0 g/dL 2.2-4.2 [facility] Lipase [Catalytic activity/Vol] 13 U/L 13-75 [facility] Comment on above: Please note:LIPASE r evised reference range effective 23. New Lipase methodology. Expected to produce lower values than the previous assay method. NEW Reference Range: 13 - 75 U/L Urea nitrogen/Creatinine [Mass ratio] 21.6 mg/mg 10-20 [facility] Laboratory - Chemistry and C hemistry - challengeOrdered By: Dr. Orellana on 04-13-2023 Magnesium [Mass/Vol] 2.1 mg/dL 1.6-2.6 [facility] Laboratory - Hematology and Cell countsOrdered By: Dr. Bliss on 04-13-2023 Erythrocyte distribution width (RBC) [Entitic vol] 49.0 fL 35.1-43.9 [facility] Erythrocyte distribution width (RBC) [Ratio] 13.8 % 11.6-14.6 [facility] Immature granulocytes/100 WBC (Bld) 1.000 % 0.0-0.9 [facility] Comment on above: IG% - Immature Granu locytes (promyelocytes, myelocytes and metamyelocytes) > 1% indicates that a LEFT SHIFT is Present. MCH (RBC) [Entitic mass] 32.2 pg 27.0-32.0 [facility] Nucleated RBC/100 WBC (Bld) [Ratio] 0 % 0-5 [facility] MCHC Auto (RBC) [Mass/Vol]Or dered By: Dr. Bliss on 04-13-2023 MCHC (RBC) [Mass/Vol] 33.2 g/dL 32-36 [facility] Mucus LM Ql (Urine sed)Order ed By: Dr. Bliss on 04-13-2023 Mucus Ql (Urine sed) 0 SEEN /hpf [facility] Nitrite Test strip Ql (U)Ord ered By: Dr. Bliss on 04-13-2023 Nitrite Ql (U) Negative Negative [facility] No Panel InformationOrdered By: Dr. Bliss on 04-13-2023 Estimated Creatinine Clearance Calc 39.05 ml/min [facility] Estimated GFR (MDRD) Amer 49 mL/min >60 [facility] Comment on above: GFR Calc Estimated GFR (MDRD) Non-Af Amer 41 mL/min >60 [facility] Comment on above: Non- GFR Calc Troponin I High Sensitivity 76 pg/mL 3.0-78.0 [facility] Comment on above: Please Note: New [place] t Units and Gender Specific Reference Ranges. For more information see Policy Stat Procedure [place] High Sensitivity Troponin (TNIH) and attachments. No Panel InformationOrdered By: Jo-Ann Bliss on 04-13-2023 4.0 g/dL 2.2-4.2 [facility] 13 U/L 13-75 [facility] 76 pg/mL 3.0-78.0 [facility] 117 U/L 45-117 [facility] 7 U/L 16-61 [facility] No Panel InformationOrdered By: Norris Orellana on 04-13-2023 2.1 mg/dL 1.6-2.6 [facility] Platelets bldOrdered By: Dr. Bliss on 04-13-2023 Platelets (Bld) [#/Vol] 120 10*3/uL 150-450 [facility] Protein Test strip Ql (U)Ord ered By: Dr. Bliss on 04-13-2023 Protein Ql (U) Negative Negative [facility] Serum or plasma albumin aby urement (mass/volume)Ordered By: Dr. Bliss on 04-13-2023 Albumin [Mass/Vol] 3.7 g/dL 3.2-5.0 [facility] Serum or plasma albumin/glob ulin mass ratioOrdered By: Dr. Bliss on 04-13-2023 Albumin/Globulin [Mass ratio] 0.9 {ratio} 0.9-2.4 [facility] Serum or plasma calcium aby urement (mass/volume)Ordered By: Dr. Bliss on 04-13-2023 Calcium [Mass/Vol] 9.7 mg/dL 8.5-10.1 [facility] Serum or plasma creatinine m easurement (mass/volume)Ordered By: Dr. Bliss on 04-13-2023 Creatinine [Mass/Vol] 1.76 mg/dL 0.70-1.30 [facility] Comment on above: The validity of the calculated GFR & GFRAA in patients over 70 years has not been determined. Clinical correlation is essential. Serum or plasma urea nitroge n measurement (mass/volume)Ordered By: Dr. Bliss on 04-13-2023 Urea nitrogen [Mass/Vol] 38 mg/dL 7-18 [facility] Squamous epithelial cells de tection in urine sediment by light microscopyOrdered By: Dr. Bliss on 04-13-2023 Epithelial cells.squamous LM Ql (Urine sed) 0 SEEN /hpf 0-5 [facility] Thin prep Papanicolaou smear with manual screeningOrdered By: Dr. Bliss on 04-13-2023 Thin prep Papanicolaou smear with manual screening 13 U/L 15-37 [facility] Thin prep Papanicolaou smear with manual screening 6 5-15 [facility] Urine blood detectionOrdered By: Dr. Bliss on 04-13-2023 RBC Ql (U) Negative Negative [facility] RBC Ql (U) 0 SEEN /hpf 0-5 [facility] Urine clarityOrdered By: Dr. Bliss on 04-13-2023 Clarity (U) Clear Clear [facility] Urine color determinationOrd ered By: Dr. Bliss on 04-13-2023 Color (U) Yellow Yellow [facility] Urine glucose detectionOrder ed By: Dr. Bliss on 04-13-2023 Glucose Ql (U) Normal mg/dl Normal [facility] Urine leukocyte esterase det ection by dipstickOrdered By: Dr. Bliss on 04-13-2023 Leukocyte esterase Test strip Ql (U) Negative Negative [facility] Urine pHOrdered By: Dr. Kadie culver on 04-13-2023 pH (U) 6.5 [pH] 5.0 - 8.0 [facility] Urine sediment bacteria coun t by microscopy (number/high power field)Ordered By: Dr. Bliss on 04-13-2023 Bacteria LM.HPF (Urine sed) [#/Area] 0 /[HPF] None Seen [facility] Urine specific gravity measu rementOrdered By: Dr. Bliss on 04-13-2023 Specific gravity (U) [Rel density] 1.010 1.002-1.03 0 [facility] Urobilinogen Auto test strip Ql (U)Ordered By: Dr. Bliss on 04-13-2023 Urobilinogen Ql (U) Normal mg/dl Normal [facility] Absolute lymphocyte countOrd ered By: Dr. Turner on 04-12-2023 Lymphocytes Auto (Unsp spec) [#/Vol] 0.46 10*3/uL 0.83-4.51 [facility] Basophil percentageOrdered B y: Fior Turner on 04-12-2023 Basophil percentage 143 mg/dL 74-106 [facility] Basophil percentage 140 mmol/L 136-145 [facility] Basophil percentage 3.5 mmol/L 3.5-5.1 [facility] Basophil percentage 106 mmol/L 98-107 [facility] Basophils (Bld) [#/Vol] 5.5 10*3/uL 4.4-11.0 [facility] Basophils (Bld) [#/Vol] 4.3 10*3/uL 2.0-7.7 [facility] Basophils/100 WBC (Bld) 78.1 % 47-70 [facility] Basophils/100 WBC (Bld) 5.1 % 0-5 [facility] Basophil percentageOrdered B y: Dr. Turner on 04-12-2023 Basophils/100 WBC (Bld) 0.4 % 0-1 [facility] Chloride [Moles/Vol] 106 mmol/L 98-107 [facility] Eosin[facility] WBC (Bld) 5.1 % 0-5 [facility] Glucose [Mass/Vol] 143 mg/dL 74-106 [facility] Comment on above: Fasting Glucose resu lt greater than or equal to 126 mg/dL suggests DIABETES MELLITUS per A.D.A. criteria. Neutrophils (Bld) [#/Vol] 4.3 10*3/uL 2.0-7.7 [facility] Neutrophils/100 WBC (Bld) 78.1 % 47-70 [facility] Potassium [Moles/Vol] 3.5 mmol/L 3.5-5.1 [facility] Sodium [Moles/Vol] 140 mmol/L 136-145 [facility] WBC (Bld) [#/Vol] 5.5 10*3/uL 4.4-11.0 [facility] Blood erythrocytes count (nu mber/volume)Ordered By: Dr. Turner on 04-12-2023 RBC (Bld) [#/Vol] 3.93 10*6/uL 4.6-6.2 [facility] Blood hemoglobin measurement (mass/volume)Ordered By: Dr. Turner on 04-12-2023 Hemoglobin (Bld) [Mass/Vol] 12.7 g/dL 13.0-16.5 [facility] Blood lymphocytes/100 leukoc ytesOrdered By: Dr. Turner on 04-12-2023 Lymphocytes/100 WBC (Bld) 8.4 % 19-41 [facility] Blood manual differential co mment interpretation (narrative result)Ordered By: Dr. Turner on 04-12-2023 Manual differential comment Timur (Bld) [Interp] COMMENT [facility] Comment on above: LYMPHOPENIA NOTED Blood monocytes/100 leukocyt esOrdered By: Dr. Turner on 04-12-2023 Monocytes/100 WBC (Bld) 7.1 % 0-10 [facility] Blood platelet mean volumeOr dered By: Dr. Turner on 04-12-2023 Platelet mean volume (Bld) [Entitic vol] 11.0 fL 6.2-12.0 [facility] Determination of erythrocyte mean corpuscular volume (MCV)Ordered By: Dr. Turner on 04-12-2023 MCV (RBC) [Entitic vol] 97.2 fL 80-94 [facility] Glucose Glucometer (BldC) [M ass/Vol]Ordered By: Dr. Turner on 04-12-2023 Glucose [Mass/Vol] 314 mg/dL 74-106 [facility] Comment on above: MANAGEMENT OF PATIEN T CARE PER NURSING PROTOCOL Hematocrit Auto (Bld) [Volum e fraction]Ordered By: Dr. Turner on 04-12-2023 Hematocrit (Bld) [Volume fraction] 38.2 % 40-54 [facility] - Chemistry and C hemistry - challengeOrdered By: Dr. Turner on 04-12-2023 CO2 [Moles/Vol] 28.0 mmol/L 21.0-32.0 [facility] Urea nitrogen/Creatinine [Mass ratio] 20.8 mg/mg 10-20 [facility] - Hematology and Cell countsOrdered By: Dr. Turner on 04-12-2023 Erythrocyte distribution width (RBC) [Entitic vol] 48.8 fL 35.1-43.9 [facility] Erythrocyte distribution width (RBC) [Ratio] 13.7 % 11.6-14.6 [facility] Immature granulocytes/100 WBC (Bld) 0.900 % 0.0-0.9 [facility] Comment on above: IG% - Immature Granu locytes (promyelocytes, myelocytes and metamyelocytes) > 1% indicates that a LEFT SHIFT is Present. MCH (RBC) [Entitic mass] 32.3 pg 27.0-32.0 [facility] Nucleated RBC/100 WBC (Bld) [Ratio] 0 % 0-5 [facility] ([facility]BC) [Mass/Vol]Or dered By: Dr. Turner on 04-12-2023 MCHC (RBC) [Mass/Vol] 33.2 g/dL 32-36 [facility] No Panel InformationOrdered By: Dr. Turner on 04-12-2023 Estimated Creatinine Clearance Calc 54.99 ml/min [facility] Estimated GFR (MDRD) Amer 73 mL/min >60 [facility] Comment on above: GFR Calc Estimated GFR (MDRD) Non-Af Amer 61 mL/min >60 [facility] Comment on above: Non- GFR Calc No Panel InformationOrdered By: Fior Turner on 04-12-2023 32.3 pg 27.0-32.0 [facility] 13.7 % 11.6-14.6 [facility] 48.8 fl 35.1-43.9 [facility] 0.900 % 0.0-0.9 [facility] 0 % 0-5 [facility] 61 mL/min >60 [facility] 73 mL/min >60 [facility] 54.99 ml/min [facility] 20.8 RATIO 10-20 [facility] 28.0 mmol/L 21.0-32.0 [facility] Platelets bldOrdered By: Dr. Turner on 04-12-2023 Platelets (Bld) [#/Vol] 118 10*3/uL 150-450 [facility] Serum or plasma calcium aby urement (mass/volume)Ordered By: Dr. Turner on 04-12-2023 Calcium [Mass/Vol] 9.1 mg/dL 8.5-10.1 [facility] Serum or plasma creatinine m easurement (mass/volume)Ordered By: Dr. Turner on 04-12-2023 Creatinine [Mass/Vol] 1.25 mg/dL 0.70-1.30 [facility] Comment on above: The validity of the calculated GFR & GFRAA in patients over 70 years has not been determined. Clinical correlation is essential. Serum or plasma urea nitroge n measurement (mass/volume)Ordered By: Dr. Turner on 04-12-2023 Urea nitrogen [Mass/Vol] 26 mg/dL 7-18 [facility] Thin prep Papanicolaou smear with manual screeningOrdered By: Dr. Turner on 04-12-2023 Thin prep Papanicolaou smear with manual screening 6 5-15 [facility] Basophil percentageOrdered B y: Dr. Jacobs on 04-11-2023 Basophil percentage 3.1 mg/dL 2.5-4.9 [facility] Laboratory - Chemistry and C hemistry - challengeOrdered By: Dr. Jacobs on 04-11-2023 Magnesium [Mass/Vol] 1.9 mg/dL 1.6-2.6 [facility] No Panel InformationOrdered By: Michael Jacobs on 04-11-2023 1.9 mg/dL 1.6-2.6 [facility] Absolute lymphocyte countOrd ered By: Dr. Badillo on 04-10-2023 Lymphocytes Auto (Unsp spec) [#/Vol] 0.50 10*3/uL 0.83-4.51 [facility] Basophil percentageOrdered B y: Dr. Baidllo on 04-10-2023 Basophil percentage 0 SEEN /hpf 0-5 [facility] Basophils/100 WBC (Bld) 0.4 % 0-1 [facility] Bilirubin [Mass/Vol] 0.90 mg/dL 0.20-1.00 [facility] Comment on above: For patients on eltr ombopag therapy, use of Dimension [place] TBIL is not recommended. Chloride [Moles/Vol] 104 mmol/L 98-107 [facility] Eosinophils/100 WBC (Bld) 1.4 % 0-5 [facility] Glucose [Mass/Vol] 216 mg/dL 74-106 [facility] Comment on above: Glucose result great er than or equal to 200 mg/dLsuggests DIABETES MELLITUS per A.D.A. criteria. Neutrophils (Bld) [#/Vol] 8.0 10*3/uL 2.0-7.7 [facility] Neutrophils/100 WBC (Bld) 85.5 % 47-70 [facility] Potassium [Moles/Vol] 4.0 mmol/L 3.5-5.1 [facility] Protein [Mass/Vol] 8.0 g/dL 6.4-8.2 [facility] Sodium [Moles/Vol] 139 mmol/L 136-145 [facility] WBC (Bld) [#/Vol] 9.3 10*3/uL 4.4-11.0 [facility] Basophil percentageOrdered B y: Victorino Badillo on 04-10-2023 Basophil percentage 8.0 g/dL 6.4-8.2 [facility] Basophil percentage 0.90 mg/dL 0.20-1.00 [facility] Bilirubin Test strip Ql (U)O rdered By: Dr. Badillo on 04-10-2023 Bilirubin Ql (U) Negative Negative [facility] Blood erythrocytes count (nu mber/volume)Ordered By: Dr. Badillo on 04-10-2023 RBC (Bld) [#/Vol] 4.14 10*6/uL 4.6-6.2 [facility] Blood hemoglobin measurement (mass/volume)Ordered By: Dr. Badillo on 04-10-2023 Hemoglobin (Bld) [Mass/Vol] 13.3 g/dL 13.0-16.5 [facility] Blood lymphocytes/100 leukoc ytesOrdered By: Dr. Badillo on 04-10-2023 Lymphocytes/100 WBC (Bld) 5.4 % 19-41 [facility] Blood manual differential co mment interpretation (narrative result)Ordered By: Dr. Badillo on 04-10-2023 Manual differential comment Timur (Bld) [Interp] COMMENT [facility] Comment on above: LYMPHOPENIA NOTED Blood monocytes/100 leukocyt esOrdered By: Dr. Badillo on 04-10-2023 Monocytes/100 WBC (Bld) 6.7 % 0-10 [facility] Blood platelet mean volumeOr dered By: Dr. Badillo on 04-10-2023 Platelet mean volume (Bld) [Entitic vol] 11.2 fL 6.2-12.0 [facility] Determination of erythrocyte mean corpuscular volume (MCV)Ordered By: Dr. Badillo on 04-10-2023 MCV (RBC) [Entitic vol] 96.6 fL 80-94 [facility] Hematocrit Auto (Bld) [Volum e fraction]Ordered By: Dr. Badillo on 04-10-2023 Hematocrit (Bld) [Volume fraction] 40.0 % 40-54 [facility] Ketones Test strip Ql (U)Ord ered By: Dr. Badillo on 04-10-2023 Ketones Ql (U) Negative Negative [facility] - Chemistry and C hemistry - challengeOrdered By: Dr. Badillo on 04-10-2023 ALP [Catalytic activity/Vol] 133 U/L 45-117 [facility] ALT [Catalytic activity/Vol] 12 U/L 16-61 [facility] CO2 [Moles/Vol] 28.0 mmol/L 21.0-32.0 [facility] Globulin (S) [Mass/Vol] 4.0 g/dL 2.2-4.2 [facility] Urea nitrogen/Creatinine [Mass ratio] 20.9 mg/mg 10-20 [facility] - Hematology and Cell countsOrdered By: Dr. Badillo on 04-10-2023 Erythrocyte distribution width (RBC) [Entitic vol] 48.4 fL 35.1-43.9 [facility] Erythrocyte distribution width (RBC) [Ratio] 13.8 % 11.6-14.6 [facility] Immature granulocytes/100 WBC (Bld) 0.600 % 0.0-0.9 [facility] Comment on above: IG% - Immature Granu locytes (promyelocytes, myelocytes and metamyelocytes) > 1% indicates that a LEFT SHIFT is Present. MCH (RBC) [Entitic mass] 32.1 pg 27.0-32.0 [facility] Nucleated RBC/100 WBC (Bld) [Ratio] 0 % 0-5 [facility] MCHC Auto (RBC) [Mass/Vol]Or dered By: Dr. Badillo on 04-10-2023 MCHC (RBC) [Mass/Vol] 33.3 g/dL 32-36 [facility] Mucus LM Ql (Urine sed)Order ed By: Dr. Badillo on 04-10-2023 Mucus Ql (Urine sed) 0 SEEN /hpf [facility] Nitrite Test strip Ql (U)Ord ered By: Dr. Badillo on 04-10-2023 Nitrite Ql (U) Negative Negative [facility] No Panel InformationOrdered By: Dr. Badillo on 04-10-2023 Estimated Creatinine Clearance Calc 49.45 ml/min [facility] Estimated GFR (MDRD) Amer 65 mL/min >60 [facility] Comment on above: GFR Calc Estimated GFR (MDRD) Non-Af Amer 54 mL/min >60 [facility] Comment on above: Non- GFR Calc No Panel InformationOrdered By: Victorino Badillo on 04-10-2023 4.0 g/dL 2.2-4.2 [facility] 133 U/L 45-117 [facility] 12 U/L 16-61 [facility] Platelets bldOrdered By: Dr. Badillo on 04-10-2023 Platelets (Bld) [#/Vol] 155 10*3/uL 150-450 [facility] Protein Test strip Ql (U)Ord ered By: Dr. Badillo on 04-10-2023 Protein Ql (U) Negative Negative [facility] Serum or plasma albumin aby urement (mass/volume)Ordered By: Dr. Badillo on 04-10-2023 Albumin [Mass/Vol] 4.0 g/dL 3.2-5.0 [facility] Serum or plasma albumin/glob ulin mass ratioOrdered By: Dr. Badillo on 04-10-2023 Albumin/Globulin [Mass ratio] 1.0 {ratio} 0.9-2.4 [facility] Serum or plasma calcium aby urement (mass/volume)Ordered By: Dr. Badillo on 04-10-2023 Calcium [Mass/Vol] 9.5 mg/dL 8.5-10.1 [facility] Serum or plasma creatinine m easurement (mass/volume)Ordered By: Dr. Badillo on 04-10-2023 Creatinine [Mass/Vol] 1.39 mg/dL 0.70-1.30 [facility] Comment on above: The validity of the calculated GFR & GFRAA in patients over 70 years has not been determined. Clinical correlation is essential. Serum or plasma urea nitroge n measurement (mass/volume)Ordered By: Dr. Badillo on 04-10-2023 Urea nitrogen [Mass/Vol] 29 mg/dL 7-18 [facility] Squamous epithelial cells de tection in urine sediment by light microscopyOrdered By: Dr. Badillo on 04-10-2023 Epithelial cells.squamous LM Ql (Urine sed) 0 SEEN /hpf 0-5 [facility] Thin prep Papanicolaou smear with manual screeningOrdered By: Dr. Badillo on 04-10-2023 Thin prep Papanicolaou smear with manual screening 16 U/L 15-37 [facility] Thin prep Papanicolaou smear with manual screening 7 5-15 [facility] Urine blood detectionOrdered By: Dr. Badillo on 04-10-2023 RBC Ql (U) Negative Negative [facility] RBC Ql (U) 0 SEEN /hpf 0-5 [facility] Urine clarityOrdered By: Dr. Badillo on 04-10-2023 Clarity (U) Clear Clear [facility] Urine color determinationOrd ered By: Dr. Badillo on 04-10-2023 Color (U) Yellow Yellow [facility] Urine glucose detectionOrder ed By: Dr. Badillo on 04-10-2023 Glucose Ql (U) Normal mg/dl Normal [facility] Urine leukocyte esterase det ection by dipstickOrdered By: Dr. Badillo on 04-10-2023 Leukocyte esterase Test strip Ql (U) Negative Negative [facility] Urine pHOrdered By: Dr. Zain steiner on 04-10-2023 pH (U) 6.0 [pH] 5.0 - 8.0 [facility] Urine sediment bacteria coun t by microscopy (number/high power field)Ordered By: Dr. Badillo on 04-10-2023 Bacteria LM.HPF (Urine sed) [#/Area] 0 /[HPF] None Seen [facility] Urine specific gravity measu rementOrdered By: Dr. Badillo on 04-10-2023 Specific gravity (U) [Rel density] 1.015 1.002-1.03 0 [facility] Urobilinogen Auto test strip Ql (U)Ordered By: Dr. Badillo on 04-10-2023 Urobilinogen Ql (U) Normal mg/dl Normal [facility] HEMOGLOBIN A1C (POC)on 03-23 HbA1c (Bld) [Mass fraction] 8.1 % Abnormal 4.2 - 5.6 % [facility] No Panel Informationon 03-09 [facility] No Panel InformationOrdered By: KEYSHAWN Cartgaena on 01-27-2023 Prostate Specific Antigen Total < 0.01 ng/mL 0.0-4.0 [facility] Comment on above: This test was perfor med using the TPSA assay method for theDimension chemistry system. Values obtained with differentassay methods cannot be used interchangably.When changing PSA assays in the course of monitoring apatient, additional sequential testing should be carriedout to confirm baseline values. < 0.01 ng/mL 0.0-4.0 [facility] - Chemistry and C hemistry - challengeOrdered By: Dr. Horton on 01-06-2023 Free T4 [Mass/Vol] 1.01 ng/dL 0.76-1.46 [facility] No Panel InformationOrdered By: Dr. Horton on 01-06-2023 Free Triiodothyronine (T3) pg/dL 2.5 pg/mL 2.18-3.98 [facility] Thyroid Stimulating Hormone (TSH) 1.52 uIU/mL 0.358-3.74 [facility] No Panel InformationOrdered By: KEYSHAWN Cartagena on 10-21-2022 Prostate Specific Antigen Total < 0.01 ng/mL 0.0-4.0 [facility] Comment on above: This test was perfor med using the TPSA assay method for themenon chemistry system. Values obtained with differentassay methods cannot be used interchangably.When changing PSA assays in the course of monitoring apatient, additional sequential testing should be carriedout to confirm baseline values. CBC panel Auto (Bld)on 09-02 Erythrocyte distribution width (RBC) [Ratio] 13.2 % 11.5 - 15.0 % [facility] Hematocrit (Bld) [Volume fraction] 40.5 % 39.0 - 51.0 % [facility] Hemoglobin (Bld) [Mass/Vol] 13.0 g/dL 13.0 - 17.0 g/dL [facility] MCH (RBC) [Entitic mass] 32.3 pg 26. 0 - 34.0 pg [facility] MCHC (RBC) [Mass/Vol] 32.1 g/dL 30.5 - 36.0 g/dL [facility] MCV (RBC) [Entitic vol] 100.7 fL High 80.0 - 100.0 fL [facility] Nucleated RBC (Bld) [#/Vol] <0.01 k/uL [facility] Platelet mean volume (Bld) [Entitic vol] 11.0 fL 9.0 - 12.7 fL [facility] Platelets (Bld) [#/Vol] 122 10*3/uL Low 150 - 400 k/uL [facility] [facility] RBC (Bld) [#/Vol] 4.02 10*6/uL Low 4.20 - 6.00 m/uL [facility] WBC (Bld) [#/Vol] 6.08 10*3/uL 3.70 - 11.00 k/uL [facility] Comprehensive metabolic 2000 panelon 09-02-2022 Albumin [Mass/Vol] 4.3 g/dL 3.9 - 4.9 g/dL [facility] ALP [Catalytic activity/Vol] 137 U/L High 38 - 113 U/L [facility] ALT [Catalytic activity/Vol] 14 U/L 10 - 54 U/L [facility] Anion gap [Moles/Vol] 7 mmol/L Low 9 - 18 mmol/L [facility] AST [Catalytic activity/Vol] 20 U/L 14 - 40 U/L [facility] Bilirubin [Mass/Vol] 0.5 mg/dL 0.2 - 1 .3 mg/dL [facility] Calcium [Mass/Vol] 10.1 mg/dL 8.5 - 10. 2 mg/dL [facility] Chloride [Moles/Vol] 102 mmol/L 97 - 10 5 mmol/L [facility] CO2 [Moles/Vol] 29 mmol/L 22 - 30 mmol/L [facility] Creatinine [Mass/Vol] 1.25 mg/dL High 0.73 - 1.22 mg/dL [facility] Estimated Glomerular Filtration Rate 62 mL/min/1.73m >=60 mL/min/1.7 3m [facility] Glucose [Mass/Vol] 171 mg/dL High 74 - 99 mg/dL [facility] Potassium [Moles/Vol] 5.3 mmol/L High 3.7 - 5.1 mmol/L [facility] Protein [Mass/Vol] 7.5 g/dL 6.3 - 8.0 g/dL [facility] Sodium [Moles/Vol] 138 mmol/L 136 - 144 mmol/L [facility] Urea nitrogen [Mass/Vol] 28 mg/dL High 9 - 24 mg/dL [facility] No Panel Informationon 09-02 [facility] PT panel Coag (PPP)on 2021 INR Coag (PPP) [Relative time] 1.2 {INR} 0.9 - 1.3 [facility] PT Coag (PPP) [Time] 12.7 s 9.7 - 1 3.0 sec [facility] US ABD SPLEEN - NBon 022 [facility] Albumin Elph [Mass/Vol]Order ed By: Dr. Horton on 08-09-2022 Albumin [Mass/Vol] 3.8 g/dL 2.9-4.4 [facility] Basophil percentageOrdered B y: Dr. Horton on 08-09-2022 Basophil percentage Comment . [facility] Comment on above: No monoclonality det ected.Performed at: - [address] Director: Jay Grijalva PhD, Phone: [phone] Interpretation of serum or p lasma protein pattern by immunofixation (narrative resultOrdered By: Dr. Horton on 08-09-2022 Protein Fractions Immunofixation Timur [Interp] See comment [facility] Comment on above: Result: Not Observed No Panel InformationOrdered By: Dr. Horton on 08-09-2022 Addendum Document Comment . [facility] Comment on above: Protein electrophore sis scan will follow via computer,mail, or vehicle safety inspector delivery. Serum [id number] measu rement by electrophoresisOrdered By: Dr. Horton on 08-09-2022 Alpha 1 globulin Elph [Mass/Vol] 0.3 g/dL 0.0-0.4 [facility] Alpha 1 globulin Elph [Mass/Vol] 0.7 g/dL 0.4-1.0 [facility] Serum globulin measurement ( mass/volume)Ordered By: Dr. Horton on 08-09-2022 Globulin (S) [Mass/Vol] 3.7 g/dL 2.2-3.9 [facility] Serum or plasma IgA measurem ent (mass/volume)Ordered By: Dr. Horton on 08-09-2022 IgA [Mass/Vol] 152 mg/dL 61-437 [facility] Serum or plasma IgG measurem ent (mass/volume)Ordered By: Dr. Horton on 08-09-2022 IgG [Mass/Vol] 1578 mg/dL 603-1613 [facility] Serum or plasma IgM measurem ent (mass/volume)Ordered By: Dr. Horton on 08-09-2022 IgM [Mass/Vol] 37 mg/dL 20-172 [facility] Serum or plasma beta globuli n measurement by electrophoresis (mass/volume)Ordered By: Dr. Horton on 08-09-2022 Beta globulin Elph [Mass/Vol] 1.2 g/dL 0.7-1.3 [facility] Serum or plasma gamma globul in measurement by electrophoresis (mass/volume)Ordered By: Dr. Horton on 08-09-2022 Gamma globulin Elph [Mass/Vol] 1.5 g/dL 0.4-1.8 [facility] Serum or plasma immunoelectr ophoresis interpretation (nominal result)Ordered By: Dr. Horton on 08-09-2022 Interpretation IEP [Interp] Comment . [facility] Comment on above: No monoclonality det ected. Thin prep Papanicolaou smear with manual screeningOrdered By: Dr. Horton on 08-09-2022 Thin prep Papanicolaou smear with manual screening 1.1 0.7-1.7 [facility] Total protein bloodOrdered B y: Dr. Horton on 08-09-2022 Protein [Mass/Vol] 7.5 g/dL 6.0-8.5 [facility] XR HIP RIGHT WITH PELVIS 2-3 VIEWS (ROUTINE)on 06-15-2022 XR HIP RIGHT WITH PELVIS 2-3 VIEWS (ROUTINE) EXAMINATION: XR HIP RIGHT WITH PELVIS 2-3 VIEWS (ROUTINE) HISTORY: pain Dx: Hip fracture requiring operative repair, right, closed, initial encounter ([facility]) S72.001A (ICD-10-CM); Status post hip hemiarthroplasty Z96.649 (ICD-10-CM) COMPARISON: Right hip and pelvis 05/18/2022. TECHNIQUE: Erect AP and external rotation views of the right hip with AP view of the pelvis. FINDINGS: Pelvic osseous structures appear intact. Right hip replacement appears stable. No interval prosthetic loosening or acute osseous disruption is seen. Prominent femoral vascular calcifications are again noted. IMPRESSION: No acute right hip or pelvis abnormality. Stable appearance of previous right hip replacement. Prominent right femoral vascular calcifications are apparent. [facility]WA[facility] Workstation ID: [id number] Dictated by: KODI DAMIAN on TueJun 16, 2022 10:35:10 AM EDT Transcribed by: SIDDHARTH ALEXANDRE on TueJun 16, 2022 11:01:51 AM EDT Finalized by: KODI DAMIAN on TueJun 16, 2022 11:17:07 AM EDT [facility] Comment on above: Order Comment: Injur y/Trauma or Illness?:Injury/Trauma How long have you had these symptoms (acute/chronic)?:Acute Reason for exam?:POST OP RIGHT HIP SX 02/13/22 History of cancer?: Surgeries, chemotherapy, or radiation?: Type of Exam?:Subsequent/Follow-up Mechanism of injury?:fall Absolute lymphocyte counton 06-07-2022 Lymphocytes Auto (Unsp spec) [#/Vol] 0.44 10*3/uL 0.83-4.51 [facility] Work Phone: Basophil percentageon 2021 Basophil percentage 0-5 SEEN /hpf 0-5 [facility] Work Phone: Ammonia (P) [Moles/Vol] 14.0 umol/L 11-32 [facility] Work Phone: [phone] Basophils/100 WBC (Bld) 0.4 % 0-1 [facility] Work Phone: Bilirubin [Mass/Vol] 0.80 mg/dL 0.20-1.00 [facility] Work Phone: Comment on above: For patients on eltr ombopag therapy, use of Dimension [place] TBIL is not recommended. Chloride [Moles/Vol] 100 mmol/L 98-107 [facility] Work Phone: Eosinophils/100 WBC (Bld) 0.7 % 0-5 [facility] Work Phone: [phone] Glucose [Mass/Vol] 376 mg/dL 74-106 [facility] Work Phone: [phone] Comment on above: Glucose result great er than or equal to 200 mg/dLsuggests DIABETES MELLITUS per A.D.A. criteria. Neutrophils (Bld) [#/Vol] 6.6 10*3/uL 2.0-7.7 [facility] Work Phone: [phone] Neutrophils/100 WBC (Bld) 86.1 % 47-70 [facility] Work Phone: [phone] Potassium [Moles/Vol] 4.5 mmol/L 3.5-5.1 [facility] Work Phone: [phone] Comment on above: Moderate Hemolysis, Result may be falsely increased. Protein [Mass/Vol] 8.3 g/dL 6.4-8.2 [facility] Work Phone: [phone] Sodium [Moles/Vol] 136 mmol/L 136-145 [facility] Work Phone: [phone] WBC (Bld) [#/Vol] 7.6 10*3/uL 4.4-11.0 [facility] Work Phone: Bilirubin Test strip Ql (U)o n 06-07-2022 Bilirubin Ql (U) Negative Negative [facility] Work Phone: [phone] Blood erythrocytes count (nu mber/volume)on 06-07-2022 RBC (Bld) [#/Vol] 4.26 10*6/uL 4.6-6.2 [facility] Work Phone: [phone] Blood hemoglobin measurement (mass/volume)on 06-07-2022 Hemoglobin (Bld) [Mass/Vol] 13.1 g/dL 13.0-16.5 [facility] Work Phone: Blood lymphocytes/100 leukoc yteson 06-07-2022 Lymphocytes/100 WBC (Bld) 5.8 % 19-41 [facility] Work Phone: Blood monocytes/100 leukocyt eson 06-07-2022 Monocytes/100 WBC (Bld) 6.0 % 0-10 [facility] Work Phone: Blood platelet adequacy dete ction by light microscopyon 06-07-2022 Platelets LM Ql (Bld) SLT [facility] Work [facility]: Blood platelet mean volumeon 06-07-2022 Platelet mean volume (Bld) [Entitic vol] 12.1 fL 6.2-12.0 [facility] Work Phone: [phone] Determination of erythrocyte mean corpuscular volume (MCV)on 06-07-2022 MCV (RBC) [Entitic vol] 93.4 fL 80-94 [facility] Work Phone: [phone] Direct bilirubinon Bilirubin.direct [Mass/Vol] 0.19 mg/dL 0.00-0.30 [facility] Work Phone: Hematocrit Auto (Bld) [Volum e fraction]on 06-07-2022 Hematocrit (Bld) [Volume fraction] 39.8 % 40-54 [facility] Work Phone: [phone] Ketones Test strip Ql (U)on 06-07-2022 Ketones Ql (U) Negative Negative [facility] Work Phone: [phone] Laboratory - Chemistry and C hemistry - challengeon 06-07-2022 ALP [Catalytic activity/Vol] 154 U/L 45-117 [facility] Work Phone: [phone] ALT [Catalytic activity/Vol] 23 U/L 16-61 [facility] Work Phone: [phone] CO2 [Moles/Vol] 27.0 mmol/L 21.0-32.0 [facility] Work Phone: [phone] Globulin (S) [Mass/Vol] 4.7 g/dL 2.2-4.2 [facility] Work Phone: Natriuretic peptide B (Bld) [Mass/Vol] 244.9 pg/mL 0-100 [facility] Work Phone: Urea nitrogen/Creatinine [Mass ratio] 19.9 mg/mg 10-20 [facility] Work Phone: Laboratory - Hematology and Cell countson 06-07-2022 Erythrocyte distribution width (RBC) [Entitic vol] 50.3 fL 35.1-43.9 [facility] Work Phone: Erythrocyte distribution width (RBC) [Ratio] 14.6 % 11.6-14.6 [facility] Work Phone: Immature granulocytes/100 WBC (Bld) 1.000 % 0.0-0.9 [facility] Work Phone: Comment on above: IG% - Immature Granu locytes (promyelocytes, myelocytes and metamyelocytes) > 1% indicates that a LEFT SHIFT is Present. MCH (RBC) [Entitic mass] 30.8 pg 27.0-32.0 [facility] Work Phone: Nucleated RBC/100 WBC (Bld) [Ratio] 0 % 0-5 [facility] Work Phone: MCHC Auto (RBC) [Mass/Vol]on 06-07-2022 MCHC (RBC) [Mass/Vol] 32.9 g/dL 32-36 [facility] Work Phone: Mucus LM Ql (Urine sed)on Mucus Ql (Urine sed) 0 SEEN /hpf [facility] Work Phone: Nitrite Test strip Ql (U)on 06-07-2022 Nitrite Ql (U) Negative Negative [facility] Work Phone: No Panel Informationon 06-07 Estimated Creatinine Clearance Calc 40.77 ml/min [facility] Work Phone: Estimated GFR (MDRD) Amer 51 mL/min >60 [facility] Work Phone: Comment on above: GFR Calc Estimated GFR (MDRD) Non-Af Amer 42 mL/min >60 [facility] Work Phone: Comment on above: Non- GFR Calc Troponin I High Sensitivity 90 pg/mL 3.0-78.0 [facility] Work Phone: Comment on above: Please Note: [place] t Units and Gender Specific Reference Ranges. For more information see Policy Stat Procedure [place] High Sensitivity Troponin (TNIH) and attachments. Platelets bldon 06-07-2022 Platelets (Bld) [#/Vol] See comment 150-450 [facility] Work Phone: Comment on above: Please note: For thi s sample, a platelet estimate is provided rather than a platelet count due to platelet clumping. Other parameters associated with this sample are not affected by platelet clumping. If a more accurate platelet count is required, a redraw of the patient will be necessary. Protein Test strip Ql (U)on 06-07-2022 Protein Ql (U) 15 mg/dl Negative [facility] Work Phone: Serum or plasma albumin aby urement (mass/volume)on 06-07-2022 Albumin [Mass/Vol] 3.6 g/dL 3.2-5.0 [facility] Work Phone: Serum or plasma calcium aby urement (mass/volume)on 06-07-2022 Calcium [Mass/Vol] 10.4 mg/dL 8.5-10.1 [facility] Work Phone: Serum or plasma creatinine m easurement (mass/volume)on 06-07-2022 Creatinine [Mass/Vol] 1.71 mg/dL 0.70-1.30 [facility] Work Phone: Comment on above: The validity of the calculated GFR & GFRAA in patients over 70 years has not been determined. Clinical correlation is essential. Serum or plasma urea nitroge n measurement (mass/volume)on 06-07-2022 Urea nitrogen [Mass/Vol] 34 mg/dL 7-18 [facility] Work Phone: Squamous epithelial cells de tection in urine sediment by light microscopyon 06-07-2022 Epithelial cells.squamous LM Ql (Urine sed) 0-5 SEEN /hpf 0-5 [facility] Work Phone: Thin prep Papanicolaou smear with manual screeningon 06-07-2022 Thin prep Papanicolaou smear with manual screening 40 U/L 15-37 [facility] Work Phone: Comment on above: Moderate Hemolysis, Result may be falsely increased. Thin prep Papanicolaou smear with manual screening 9 5-15 [facility] Work Phone: Urine blood detectionon 08-0 RBC Ql (U) 150 /ul Negative [facility] Work Phone: [phone] RBC Ql (U) 0-5 SEEN /hpf 0-5 [facility] Work Phone: Urine clarityon 06-07-2022 Clarity (U) Clear Clear [facility] Work Phone: Urine color determinationon 06-07-2022 Color (U) Yellow Yellow [facility] Work Phone: Urine glucose detectionon Glucose Ql (U) 250 mg/dl Normal [facility] Work Phone: Urine leukocyte esterase det ection by dipstickon 06-07-2022 Leukocyte esterase Test strip Ql (U) Negative Negative [facility] Work Phone: Urine pHon 06-07-2022 pH (U) 6.0 [pH] 5.0 - 8.0 [facility] Work Phone: Urine sediment bacteria coun t by microscopy (number/high power field)on 06-07-2022 Bacteria LM.HPF (Urine sed) [#/Area] RARE /hpf None Seen [facility] Work Phone: Urine specific gravity measu rementon 06-07-2022 Specific gravity (U) [Rel density] 1.015 1.002-1.03 0 [facility] Work Phone: Urobilinogen Auto test strip Ql (U)on 06-07-2022 Urobilinogen Ql (U) Normal mg/dl Normal [facility] Work Phone: Basophil percentageon 2021 Bilirubin [Mass/Vol] 0.70 mg/dL 0.20-1.00 [facility] Work Phone: Comment on above: For patients on eltr ombopag therapy, use of Dimension [place] TBIL is not recommended. Chloride [Moles/Vol] 102 mmol/L 98-107 [facility] Work Phone: [phone] Glucose [Mass/Vol] 250 mg/dL 74-106 [facility] Work Phone: Comment on above: Glucose result great er than or equal to 200 mg/dLsuggests DIABETES MELLITUS per A.D.A. criteria. Potassium [Moles/Vol] 3.7 mmol/L 3.5-5.1 [facility] Work Phone: Protein [Mass/Vol] 7.8 g/dL 6.4-8.2 [facility] Work Phone: [phone] Sodium [Moles/Vol] 137 mmol/L 136-145 [facility] Work Phone: [phone] Laboratory - Chemistry and C hemistry - challengeon 05-24-2022 ALP [Catalytic activity/Vol] 183 U/L 45-117 [facility] Work Phone: [phone] ALT [Catalytic activity/Vol] 23 U/L 16-61 [facility] Work Phone: [phone] CO2 [Moles/Vol] 28.0 mmol/L 21.0-32.0 [facility] Work Phone: [phone] Cobalamin (Vitamin B12) [Mass/Vol] 837 pg/mL 211-911 [facility] Work Phone: [phone] Globulin (S) [Mass/Vol] 4.3 g/dL 2.2-4.2 [facility] Work Phone: [phone] Urea nitrogen/Creatinine [Mass ratio] 25.8 mg/mg 10-20 [facility] Work Phone: [phone] No Panel Informationon 05-24 Estimated GFR (MDRD) Amer 69 mL/min >60 [facility] Work Phone: Comment on above: GFR Calc Estimated GFR (MDRD) Non-Af Amer 57 mL/min >60 [facility] Work Phone: Comment on above: Non- GFR Calc Free Lambda Light Chains, Quant 57.5 mg/L 5.7-26.3 [facility] Work Phone: Thyroid Stimulating Hormone (TSH) 2.50 uIU/mL 0.358-3.74 [facility] Work Phone: Whole Blood Vitamin B1 Level 196.2 nmol/L 66.5-200.0 [facility] Work Phone: Comment on above: Performed at: [facility] [address] [id number] Director: Jay Grijalva PhD, Phone: [phone] at: [facility] [id number] Director: Jordan Landeros MD, Phone: [phone] Serum immunoglobulin kappa l ight chains/immunoglobulin lambda light chains mass ratioon 05-24-2022 Immunoglobulin light chains.kappa/Immunoglobu sandy light chains.lambda (S) [Mass ratio] 1.15 0.26-1.65 [facility] Work Phone: Serum or plasma albumin aby urement (mass/volume)on 05-24-2022 Albumin [Mass/Vol] 3.5 g/dL 3.2-5.0 [facility] Work Phone: Serum or plasma albumin/glob ulin mass ratioon 05-24-2022 Albumin/Globulin [Mass ratio] 0.8 {ratio} 0.9-2.4 [facility] Work Phone: Serum or plasma calcium aby urement (mass/volume)on 05-24-2022 Calcium [Mass/Vol] 9.5 mg/dL 8.5-10.1 [facility] Work Phone: Serum or plasma creatinine m easurement (mass/volume)on 05-24-2022 Creatinine [Mass/Vol] 1.32 mg/dL 0.70-1.30 [facility] Work Phone: Comment on above: The validity of the calculated GFR & GFRAA in patients over 70 years has not been determined. Clinical correlation is essential. Serum or plasma folate measu rement (mass/volume)on 05-24-2022 Folate [Mass/Vol] 24.10 ng/mL 3.1-55.4 [facility] Work Phone: Serum or plasma immunoglobul in kappa light chains measurement (mass/volume)on 05-24-2022 Immunoglobulin light chains.kappa [Mass/Vol] 66.1 mg/L 3.3-19.4 [facility] Work Phone: Serum or plasma urea nitroge n measurement (mass/volume)on 05-24-2022 Urea nitrogen [Mass/Vol] 34 mg/dL -18 [facility] Work Phone: Thin prep Papanicolaou smear with manual screeningon 05-24-2022 Thin prep Papanicolaou smear with manual screening 13 U/L 15-37 [facility] Work Phone: Thin prep Papanicolaou smear with manual screening 7 5-15 [facility] Work Phone: XR HIP RIGHT WITH PELVIS 2-3 VIEWS (ROUTINE)on 05-18-2022 XR HIP RIGHT WITH PELVIS 2-3 VIEWS (ROUTINE) EXAMINATION: XR HIP RIGHT WITH PELVIS 2-3 VIEWS (ROUTINE) HISTORY: Pain R52 (ICD-10-CM) COMPARISON: Right hip 03/23/2022. TECHNIQUE: AP and external rotation views. FINDINGS: No fracture, dislocation, or prominent degenerative changes are seen. Prior right hip replacement is again noted and appears stable in position without evidence of loosening. Prominent femoral vascular calcifications are again apparent. IMPRESSION: No acute right hip abnormality. Stable previous hip replacement. Prominent vascular calcifications are noted. RWA/trn Workstation ID: [id number] Dictated by: KODI DAMIAN on TueMay 21, 2022 10:24:42 AM EDT Transcribed by: SIDDHARTH ALEXANDRE on TueMay 21, 2022 10:37:15 AM EDT Finalized by: KODI DAMIAN on TueMay 21, 2022 10:48:53 AM EDT [facility] Comment on above: Order Comment: Injur y/Trauma or Illness?:Injury/Trauma How long have you had these symptoms (acute/chronic)?:Acute Reason for exam?:RIGHT HIP PAIN AFTER FALL, HX SX History of cancer?: Surgeries, chemotherapy, or radiation?: Type of Exam?:Subsequent/Follow-up Mechanism of injury?:FALL XR FOR MRI CLEARANCEon 05-05 XR FOR MRI CLEARANCE EXAMINATION: XR FOR MRI CLEARANCE HISTORY: ORDERING SYSTEM PROVIDED HISTORY: NEEDED TO CLEAR FOR MRI, TECHNOLOGIST PROVIDED HISTORY: Illness/Other Reason for exam: NEEDED TO CLEAR FOR MRI, Hx of brain surgery Cancer History: Surgery, RadiationHistory: Encounter Type: Initial Additional signs and symptoms: ORDERING SYSTEM PROVIDED DIAGNOSIS CODES: Z98.890 Hx of brain surgery COMPARISON: None TECHNIQUE: Two views of the orbits and facial bones. FINDINGS: No radiopaque foreign bodies project over the ovaries. Postoperative changes of right prior craniotomy. Two indeterminate surgical clips project over the right fronto-parietal region. IMPRESSION: Prior right craniotomy. Two indeterminate surgical clips project over the right frontoparietal region. Please correlate with prior surgery. Head CT could be considered for further evaluation to determine whether these clips are intra or extracranial. [employer] Workstation ID: [id number] Dictated by: AMBROSIO DENNEY on TueMay 05, 2022 1:32:49 PM EDT Transcribed by: WANDER FERRARO on TueMay 05, 2022 1:52:18 PM EDT Finalized by: AMBROSIO DENNEY on TueMay 05, 2022 6:58:06 PM EDT [facility] Comment on above: Order Comment: PATIE NT WAITING TO GO IN MRI SCANNER. Injury/Trauma or Illness?:Illness/Other How long have you had these symptoms (acute/chronic)?:Acute Reason for exam?:NEEDED TO CLEAR FOR MRI, Hx of brain surgery History of cancer?: Surgeries, chemotherapy, or radiation?: Type of Exam?:Initial Additional signs and symptoms?: Absolute lymphocyte counton 04-30-2022 Lymphocytes Auto (Unsp spec) [#/Vol] 0.37 10*3/uL 0.83-4.51 [facility] Work Phone: Basophil percentageon 2021 Basophils/100 WBC (Bld) 0.5 % 0-1 [facility] Work Phone: Chloride [Moles/Vol] 102 mmol/L 98-107 [facility] Work Phone: Eosinophils/100 WBC (Bld) 3.6 % 0-5 [facility] Work Phone: Glucose [Mass/Vol] 190 mg/dL 74-106 [facility] Work Phone: Comment on above: Fasting Glucose resu lt greater than or equal to 126 mg/dL suggests DIABETES MELLITUS per A.D.A. criteria. Neutrophils (Bld) [#/Vol] 7.3 10*3/uL 2.0-7.7 [facility] Work Phone: Neutrophils/100 WBC (Bld) 83.3 % 47-70 [facility] Work Phone: Potassium [Moles/Vol] 4.3 mmol/L 3.5-5.1 [facility] Work Phone: Sodium [Moles/Vol] 137 mmol/L 136-145 [facility] Work Phone: WBC (Bld) [#/Vol] 8.7 10*3/uL 4.4-11.0 [facility] Work Phone: Blood erythrocytes count (nu mber/volume)on 04-30-2022 RBC (Bld) [#/Vol] 3.89 10*6/uL 4.6-6.2 [facility] Work Phone: Blood hemoglobin measurement (mass/volume)on 04-30-2022 Hemoglobin (Bld) [Mass/Vol] 12.0 g/dL 13.0-16.5 [facility] Work Phone: Blood lymphocytes/100 leukoc yteson 04-30-2022 Lymphocytes/100 WBC (Bld) 4.3 % 19-41 [facility] Work Phone: Blood manual differential co mment interpretation (narrative result)on 04-30-2022 Manual differential comment Timur (Bld) [Interp] SCANNED [facility] Work Phone: Comment on above: LYMPHOPENIA NOTED Blood monocytes/100 leukocyt eson 04-30-2022 Monocytes/100 WBC (Bld) 6.8 % 0-10 [facility] Work Phone: Blood platelet mean volumeon 04-30-2022 Platelet mean volume (Bld) [Entitic vol] 12.2 fL 6.2-12.0 [facility] Work Phone: [phone] Determination of erythrocyte mean corpuscular volume (MCV)on 04-30-2022 MCV (RBC) [Entitic vol] 98.2 fL 80-94 [facility] Work Phone: Hematocrit Auto (Bld) [Volum e fraction]on 04-30-2022 Hematocrit (Bld) [Volume fraction] 38.2 % 40-54 [facility] Work Phone: Laboratory - Chemistry and C hemistry - challengeon 04-30-2022 CO2 [Moles/Vol] 30.0 mmol/L 21.0-32.0 [facility] Work Phone: [phone] Magnesium [Mass/Vol] 2.2 mg/dL 1.6-2.6 [facility] Work Phone: [phone] Natriuretic peptide B (Bld) [Mass/Vol] 674.3 pg/mL 0-100 [facility] Work Phone: [phone] Urea nitrogen/Creatinine [Mass ratio] 27.4 mg/mg 10-20 [facility] Work Phone: [phone] Laboratory - Hematology and Cell countson 04-30-2022 Anisocytosis Ql (Bld) 1+ [facility] Work Phone: [phone] Erythrocyte distribution width (RBC) [Entitic vol] 66.2 fL 35.1-43.9 [facility] Work Phone: [phone] Erythrocyte distribution width (RBC) [Ratio] 18.3 % 11.6-14.6 [facility] Work Phone: Immature granulocytes/100 WBC (Bld) 1.500 % 0.0-0.9 [facility] Work Phone: Comment on above: IG% - Immature Granu locytes (promyelocytes, myelocytes and metamyelocytes) > 1% indicates that a LEFT SHIFT is Present. MCH (RBC) [Entitic mass] 30.8 pg 27.0-32.0 [facility] Work Phone: Nucleated RBC/100 WBC (Bld) [Ratio] 0 % 0-5 [facility] Work Phone: MCHC Auto (RBC) [Mass/Vol]on 04-30-2022 MCHC (RBC) [Mass/Vol] 31.4 g/dL 32-36 [facility] Work Phone: Macrocytes detectionon 04-30 [facility]Bld) [facility] Work [facility]: No Panel Informationon 04-30 Estimated Creatinine Clearance Calc 51.64 ml/min [facility] Work Phone: Estimated GFR (MDRD) Amer 67 mL/min >60 [facility] Work Phone: Comment on above: GFR Calc Estimated GFR (MDRD) Non-Af Amer 56 mL/min >60 [facility] Work Phone: Comment on above: Non- GFR Calc Platelets bldon 04-30-2022 Platelets (Bld) [#/Vol] 123 10*3/uL 150-450 [facility] Work Phone: Serum or plasma calcium aby urement (mass/volume)on 04-30-2022 Calcium [Mass/Vol] 8.7 mg/dL 8.5-10.1 [facility] Work Phone: Serum or plasma creatinine m easurement (mass/volume)on 04-30-2022 Creatinine [Mass/Vol] 1.35 mg/dL 0.70-1.30 [facility] Work Phone: Comment on above: The validity of the calculated GFR & GFRAA in patients over 70 years has not been determined. Clinical correlation is essential. Serum or plasma urea nitroge n measurement (mass/volume)on 04-30-2022 Urea nitrogen [Mass/Vol] 37 mg/dL 7-18 [facility] Work Phone: Thin prep Papanicolaou smear with manual screeningon 04-30-2022 Thin prep Papanicolaou smear with manual screening 5 5-15 [facility] Work Phone: Basophil percentageon 2021 Chloride [Moles/Vol] 102 mmol/L 98-107 [facility] Work Phone: Glucose [Mass/Vol] 93 mg/dL 74-106 [facility] Work Phone: Potassium [Moles/Vol] 4.5 mmol/L 3.5-5.1 [facility] Work Phone: Sodium [Moles/Vol] 137 mmol/L 136-145 [facility] Work Phone: Glucose Glucometer (BldC) [M ass/Vol]on 04-27-2022 Glucose [Mass/Vol] 85 mg/dL 74-106 [facility] Work Phone: Comment on above: MANAGEMENT OF PATIEN T CARE PER NURSING PROTOCOL Laboratory - Chemistry and C hemistry - challengeon 04-27-2022 CO2 [Moles/Vol] 28.0 mmol/L 21.0-32.0 [facility] Work Phone: Urea nitrogen/Creatinine [Mass ratio] 30.7 mg/mg 10-20 [facility] Work Phone: No Panel Informationon 04-27 Estimated Creatinine Clearance Calc 39.61 ml/min [facility] Work Phone: Estimated GFR (MDRD) Amer 50 mL/min >60 [facility] Work Phone: Comment on above: GFR Calc Estimated GFR (MDRD) Non-Af Amer 41 mL/min >60 [facility] Work Phone: Comment on above: Non- GFR Calc Serum or plasma calcium aby urement (mass/volume)on 04-27-2022 Calcium [Mass/Vol] 8.9 mg/dL 8.5-10.1 [facility] Work Phone: Serum or plasma creatinine m easurement (mass/volume)on 04-27-2022 Creatinine [Mass/Vol] 1.76 mg/dL 0.70-1.30 [facility] Work Phone: Comment on above: The validity of the calculated GFR & GFRAA in patients over 70 years has not been determined. Clinical correlation is essential. Serum or plasma urea nitroge n measurement (mass/volume)on 04-27-2022 Urea nitrogen [Mass/Vol] 54 mg/dL 7-18 [facility] Work Phone: Thin prep Papanicolaou smear with manual screeningon 04-27-2022 Thin prep Papanicolaou smear with manual screening 7 5-15 [facility] Work Phone: Absolute lymphocyte counton 04-26-2022 Lymphocytes Auto (Unsp spec) [#/Vol] 0.22 10*3/uL 0.83-4.51 [facility] Work Phone: Basophil percentageon 2021 Basophils/100 WBC (Bld) 0.2 % 0-1 [facility] Work Phone: Bilirubin [Mass/Vol] 1.00 mg/dL 0.20-1.00 [facility] Work Phone: Comment on above: For patients on eltr ombopag therapy, use of Dimension [place] TBIL is not recommended. Cholesterol [Mass/Vol] 103 mg/dL <200 [facility] Work Phone: Comment on above: <200 mg/dL Desirable 200-240 mg/dL Borderline >240 mg/dL High Risk Eosinophils/100 WBC (Bld) 0.1 % 0-5 [facility] Work Phone: Neutrophils (Bld) [#/Vol] 7.8 10*3/uL 2.0-7.7 [facility] Work Phone: Neutrophils/100 WBC (Bld) 94.1 % 47-70 [facility] Work Phone: Protein [Mass/Vol] 6.8 g/dL 6.4-8.2 [facility] Work Phone: [phone] Triglyceride [Mass/Vol] 50 mg/dL <199 [facility] Work Phone: [phone] Comment on above: The drugs N-Acetylcy steine and Metamizole may falsely depress this assay.Serum Triglycerides Reference Interval Normal <150 mg/dL Borderline high 150 - 199 mg/dL High 200 - 499 mg/dL Very High > or = 500 mg/dL WBC (Bld) [#/Vol] 8.3 10*3/uL 4.4-11.0 [facility] Work Phone: Blood erythrocytes count (nu mber/volume)on 04-26-2022 RBC (Bld) [#/Vol] 3.90 10*6/uL 4.6-6.2 [facility] Work Phone: Blood hemoglobin measurement (mass/volume)on 04-26-2022 Hemoglobin (Bld) [Mass/Vol] 12.1 g/dL 13.0-16.5 [facility] Work Phone: Blood lymphocytes/100 leukoc yteson 04-26-2022 Lymphocytes/100 WBC (Bld) 2.6 % 19-41 [facility] Work Phone: Blood manual differential co mment interpretation (narrative result)on 04-26-2022 Manual differential comment Timur (Bld) [Interp] SCANNED [facility] Work Phone: Blood monocytes/100 leukocyt eson 04-26-2022 Monocytes/100 WBC (Bld) 1.9 % 0-10 [facility] Work Phone: Blood platelet mean volumeon 04-26-2022 Platelet mean volume (Bld) [Entitic vol] 11.5 fL 6.2-12.0 [facility] Work Phone: Determination of erythrocyte mean corpuscular volume (MCV)on 04-26-2022 MCV (RBC) [Entitic vol] 100.3 fL 80-94 [facility] Work Phone: [phone] Hematocrit Auto (Bld) [Volum e fraction]on 04-26-2022 Hematocrit (Bld) [Volume fraction] 39.1 % 40-54 [facility] Work Phone: [phone] Laboratory - Chemistry and C hemistry - challengeon 04-26-2022 ALP [Catalytic activity/Vol] 211 U/L 45-117 [facility] Work Phone: [phone] ALT [Catalytic activity/Vol] 31 U/L 16-61 [facility] Work Phone: [phone] Globulin (S) [Mass/Vol] 3.9 g/dL 2.2-4.2 [facility] Work Phone: [phone] Laboratory - Hematology and Cell countson 04-26-2022 Erythrocyte distribution width (RBC) [Entitic vol] 68.8 fL 35.1-43.9 [facility] Work Phone: [phone] Erythrocyte distribution width (RBC) [Ratio] 18.6 % 11.6-14.6 [facility] Work Phone: [phone] Immature granulocytes/100 WBC (Bld) 1.100 % 0.0-0.9 [facility] Work Phone: Comment on above: IG% - Immature Granu locytes (promyelocytes, myelocytes and metamyelocytes) > 1% indicates that a LEFT SHIFT is Present. MCH (RBC) [Entitic mass] 31.0 pg 27.0-32.0 [facility] Work Phone: [phone] Nucleated RBC/100 WBC (Bld) [Ratio] 0 % 0-5 [facility] Work Phone: [phone] MCHC Auto (RBC) [Mass/Vol]on 04-26-2022 MCHC (RBC) [Mass/Vol] 30.9 g/dL 32-36 [facility] Work [facility]: No Panel Informationon 04-26 Troponin I High Sensitivity 92 pg/mL 3.0-78.0 [facility] Work Phone: Comment on above: Please Note: [place] t Units and Gender Specific Reference Ranges. For more information see Policy Stat Procedure [place] High Sensitivity Troponin (TNIH) and attachments. Platelets bldon 04-26-2022 Platelets (Bld) [#/Vol] 154 10*3/uL 150-450 [facility] Work Phone: Serum or plasma albumin aby urement (mass/volume)on 04-26-2022 Albumin [Mass/Vol] 2.9 g/dL 3.2-5.0 [facility] Work Phone: Serum or plasma albumin/glob ulin mass ratioon 04-26-2022 Albumin/Globulin [Mass ratio] 0.7 {ratio} 0.9-2.4 [facility] Work Phone: Serum or plasma cholesterol in HDL measurement (mass/volume)on 04-26-2022 Cholesterol in HDL [Mass/Vol] 29 mg/dL >40 [facility] Work Phone: Comment on above: The drugs N-Acetylcy steine and Metamizole may falsely depress this assay. Reference Range HDL <40 mg/dL Low HDL Cholesterol HDL >or= 60 mg/dL High HDL Cholesterol Serum or plasma cholesterol in VLDL measurement (mass/volume)on 04-26-2022 Cholesterol in VLDL [Mass/Vol] 10 mg/dL 5-40 [facility] Work Phone: Serum or plasma low density lipoprotein (LDL) cholesterol measurement (mass/volume)on 04-26-2022 Cholesterol in LDL [Mass/Vol] 64 mg/dL 0-130 [facility] Work Phone: Thin prep Papanicolaou smear with manual screeningon 04-26-2022 Thin prep Papanicolaou smear with manual screening 19 U/L 15-37 [facility] Work Phone: Laboratory - Chemistry and C hemistry - challengeon 04-25-2022 Natriuretic peptide B (Bld) [Mass/Vol] 1203.2 pg/mL 0-100 [facility] Work Phone: Laboratory - Hematology and Cell countson 04-25-2022 Anisocytosis Ql (Bld) 2+ [facility] Work Phone: Macrocytes detectionon 04-25 [facility]Bld) [facility]: Thin prep Papanicolaou smear with manual screeningon 04-25-2022 Thin prep Papanicolaou smear with manual screening 1+ [facility] Work Phone: Glucose Glucometer (BldC) [M ass/Vol]on 04-14-2022 Glucose [Mass/Vol] 109 mg/dL 74-106 [facility] Work Phone: Comment on above: MANAGEMENT OF PATIEN T CARE PER NURSING PROTOCOL No Panel Informationon 04-13 Prostate Specific Antigen Total 0.03 ng/mL 0.0-4.0 [facility] Work Phone: Comment on above: This test was perfor med using the TPSA assay method for [employer] chemistry system. Values obtained with differentassay methods cannot be used interchangably.When changing PSA assays in the course of monitoring apatient, additional sequential testing should be carriedout to confirm baseline values. Glucose Glucometer (BldC) [M ass/Vol]on 04-12-2022 Glucose [Mass/Vol] 209 mg/dL 74-106 [facility] Work Phone: Comment on above: MANAGEMENT OF PATIEN T CARE PER NURSING PROTOCOL Absolute lymphocyte counton 04-11-2022 Lymphocytes Auto (Unsp spec) [#/Vol] 0.27 10*3/uL 0.83-4.51 [facility] Work Phone: Basophil percentageon 2021 Basophils/100 WBC (Bld) 0.4 % 0-1 [facility] Work Phone: Chloride [Moles/Vol] 114 mmol/L 98-107 [facility] [place] Work Phone: Eosinophils/100 WBC (Bld) 4.3 % 0-5 [facility] Work Phone: [phone] Glucose [Mass/Vol] 152 mg/dL 74-106 [facility] Work Phone: Comment on above: Fasting Glucose resu lt greater than or equal to 126 mg/dL suggests DIABETES MELLITUS per A.D.A. criteria. Neutrophils (Bld) [#/Vol] 3.8 10*3/uL 2.0-7.7 [facility] Work Phone: Neutrophils/100 WBC (Bld) 81.9 % 47-70 [facility] Work Phone: Potassium [Moles/Vol] 4.0 mmol/L 3.5-5.1 [facility] Work Phone: Sodium [Moles/Vol] 142 mmol/L 136-145 [facility] Work Phone: WBC (Bld) [#/Vol] 4.6 10*3/uL 4.4-11.0 [facility] Work Phone: Blood erythrocytes count (nu mber/volume)on 04-11-2022 RBC (Bld) [#/Vol] 3.14 10*6/uL 4.6-6.2 [facility] Work Phone: Blood hemoglobin measurement (mass/volume)on 04-11-2022 Hemoglobin (Bld) [Mass/Vol] 9.7 g/dL 13.0-16.5 [facility] Work Phone: Blood lymphocytes/100 leukoc yteson 04-11-2022 Lymphocytes/100 WBC (Bld) 5.8 % 19-41 [facility] Work Phone: Blood monocytes/100 leukocyt eson 04-11-2022 Monocytes/100 WBC (Bld) 6.3 % 0-10 [facility] Work Phone: Blood platelet mean volumeon 04-11-2022 Platelet mean volume (Bld) [Entitic vol] 11.0 fL 6.2-12.0 [facility] Work Phone: Determination of erythrocyte mean corpuscular volume (MCV)on 04-11-2022 MCV (RBC) [Entitic vol] 101.6 fL 80-94 [facility] Work Phone: [phone] Hematocrit Auto (Bld) [Volum e fraction]on 04-11-2022 Hematocrit (Bld) [Volume fraction] 31.9 % 40-54 [facility] Work Phone: [phone] Laboratory - Chemistry and C hemistry - challengeon 04-11-2022 CO2 [Moles/Vol] 23.0 mmol/L 21.0-32.0 [facility] Work Phone: [phone] Urea nitrogen/Creatinine [Mass ratio] 24.1 mg/mg 10-20 [facility] Work Phone: [phone] Laboratory - Hematology and Cell countson 04-11-2022 Anisocytosis Ql (Bld) RARE [facility] Work Phone: [phone] Erythrocyte distribution width (RBC) [Entitic vol] 68.3 fL 35.1-43.9 [facility] Work Phone: [phone] Erythrocyte distribution width (RBC) [Ratio] 18.5 % 11.6-14.6 [facility] Work Phone: [phone] Immature granulocytes/100 WBC (Bld) 1.300 % 0.0-0.9 [facility] Work Phone: [phone] Comment on above: IG% - Immature Granu locytes (promyelocytes, myelocytes and metamyelocytes) > 1% indicates that a LEFT SHIFT is Present. MCH (RBC) [Entitic mass] 30.9 pg 27.0-32.0 [facility] Work Phone: Nucleated RBC/100 WBC (Bld) [Ratio] 0 % 0-5 [facility] Work Phone: [phone] MCHC Auto (RBC) [Mass/Vol]on 04-11-2022 MCHC (RBC) [Mass/Vol] 30.4 g/dL 32-36 [facility] Work Phone: No Panel Informationon 04-11 Estimated Creatinine Clearance Calc 60.10 ml/min [facility] Work Phone: Estimated GFR (MDRD) Amer 80 mL/min >60 [facility] Work Phone: Comment on above: GFR Calc Estimated GFR (MDRD) Non-Af Amer 66 mL/min >60 [facility] Work Phone: Comment on above: Non- GFR Calc Platelets bldon 04-11-2022 Platelets (Bld) [#/Vol] 160 10*3/uL 150-450 [facility] Work Phone: Serum or plasma calcium aby urement (mass/volume)on 04-11-2022 Calcium [Mass/Vol] 8.7 mg/dL 8.5-10.1 [facility] Work Phone: Serum or plasma creatinine m easurement (mass/volume)on 04-11-2022 Creatinine [Mass/Vol] 1.16 mg/dL 0.70-1.30 [facility] Work Phone: Comment on above: The validity of the calculated GFR & GFRAA in patients over 70 years has not been determined. Clinical correlation is essential. Serum or plasma urea nitroge n measurement (mass/volume)on 04-11-2022 Urea nitrogen [Mass/Vol] 28 mg/dL 7-18 [facility] Work Phone: Thin prep Papanicolaou smear with manual screeningon 04-11-2022 Thin prep Papanicolaou smear with manual screening 5 5-15 [facility] Work Phone: Macrocytes detectionon 04-04 [facility] Ql (Bld) 1+ [facility] Work Phone: Basophil percentageon 2021 Basophil percentage 0-5 SEEN /hpf 0-5 [facility] Work Phone: Bilirubin Test strip Ql (U)o n 03-31-2022 Bilirubin Ql (U) Negative Negative [facility] Work Phone: Culture, urineon 03-31-2022 Bacteria identified Cx Nom (U) Culture exhibits no growth. [facility] Work Phone: Ketones Test strip Ql (U)on 03-31-2022 Ketones Ql (U) Negative Negative [facility] Work Phone: Mucus LM Ql (Urine sed)on Mucus Ql (Urine sed) 0 SEEN /hpf [facility] Work Phone: Nitrite Test strip Ql (U)on 03-31-2022 Nitrite Ql (U) Negative Negative [facility] Work Phone: Protein Test strip Ql (U)on 03-31-2022 Protein Ql (U) 100 mg/dl Negative [facility] Work Phone: Squamous epithelial cells de tection in urine sediment by light microscopyon 03-31-2022 Epithelial cells.squamous LM Ql (Urine sed) 0 SEEN /hpf 0-5 [facility] Work Phone: Urine blood detectionon 03-08 RBC Ql (U) 25 /ul Negative [facility] Work Phone: RBC Ql (U) 0-5 SEEN /hpf 0-5 [facility] Work Phone: Urine clarityon 03-31-2022 Clarity (U) Clear Clear [facility] Work Phone: Urine color determinationon 03-31-2022 Color (U) Yellow Yellow [facility] Work Phone: Urine glucose detectionon Glucose Ql (U) Normal mg/dl Normal [facility] Work Phone: Urine leukocyte esterase det ection by dipstickon 03-31-2022 Leukocyte esterase Test strip Ql (U) Negative Negative [facility] Work Phone: Urine pHon 03-31-2022 pH (U) 6.0 [pH] 5.0 - 8.0 [facility] Work Phone: Urine sediment bacteria coun t by microscopy (number/high power field)on 03-31-2022 Bacteria LM.HPF (Urine sed) [#/Area] 0 /[HPF] None Seen [facility] Work Phone: Urine specific gravity measu rementon 03-31-2022 Specific gravity (U) [Rel density] 1.015 1.002-1.03 0 [facility] Work Phone: Urobilinogen Auto test strip Ql (U)on 03-31-2022 Urobilinogen Ql (U) Normal mg/dl Normal [facility] Work Phone: Blood manual differential co mment interpretation (narrative result)on 03-28-2022 Manual differential comment Timur (Bld) [Interp] SCANNED [facility] Work Phone: XR HIP RIGHT 2-3 VIEWS (ROUT INE)on 03-23-2022 XR HIP RIGHT 2-3 VIEWS (ROUTINE) EXAMINATION: XR HIP RIGHT 2-3 VIEWS (ROUTINE) [...] seated with appropriate alignment. No periprosthetic fractures. IMPRESSION: Intact right hip replacement. [employer] Workstation ID: [id number] Dictated by: AMBROSIO DENNEY on TueMarch 23, 2022 3:28:52 PM EDT Transcribed by: WANDER FERRARO on TueMarch 23, 2022 3:57:11 PM EDT Finalized by: AMBROSIO DENNEY on TueMarch 23, 2022 8:40:10 PM EDT Normal [facility] Comment on above: Order Comment: Injur y/Trauma or Illness?:Illness/Other How long have you had these symptoms (acute/chronic)?:Acute Reason for exam?:POST OP RIGHT HIP SX 02/13/22 History of cancer?: Surgeries, chemotherapy, or radiation?: Type of Exam?:Initial Additional signs and symptoms?: XR LUMBAR SPINE 2-3 VIEWS (S TANDARD)on 03-23-2022 XR LUMBAR SPINE 2-3 VIEWS (STANDARD) EXAMINATION: XR LUMBAR SPINE 2-3 VIEWS (STANDARD) HISTORY: ORDERING SYSTEM PROVIDED HISTORY: Pain. TECHNOLOGIST PROVIDED HISTORY: Illness/Other Reason for exam: low back pain Cancer History: Surgery, RadiationHistory: Encounter Type: Initial Additional signs and symptoms: ORDERING SYSTEM PROVIDED DIAGNOSIS CODES: R52 Pain COMPARISON: None. FINDINGS: Three views of the lumbar spine. Diffuse osteopenia. Questionable superior endplate compression deformity of L2 with less than 25% height loss. No additional fractures identified. Normal lumbar lordosis. No listhesis. No abnormal curvature. Remaining vertebral body heights are normal. Mild multilevel disc space narrowing with minimal anterior osteophytic spurring. Moderate facet arthropathy of the mid and lower lumbar spine. IMPRESSION: Questionable superior endplate compression deformity of the L2 vertebral body with less than 25% height loss. Osteopenia. [employer] Workstation ID: [id number] Dictated by: AMBROSIO DENNEY on TueMarch 24, 2022 8:14:53 PM EDT Transcribed by: MARILYNN HARDING on TueMarch 24, 2022 8:20:38 PM EDT Finalized by: AMBROSIO DENNEY on TueMarch 25, 2022 7:22:23 PM EDT Normal [facility] Comment on above: Order Comment: Injur y/Trauma or Illness?:Illness/Other How long have you had these symptoms (acute/chronic)?:Acute Reason for exam?:low back pain History of cancer?: Surgeries, chemotherapy, or radiation?: Type of Exam?:Initial Additional signs and symptoms?: Blood band neutrophil count as percentage of total leukocyteson 03-07-2022 Band form neutrophils/100 WBC (Bld) 1 % 0-5 [facility] Work Phone: Blood eosinophils/100 leukoc yteson 03-07-2022 Eosinophils/100 WBC (Bld) 12 % 0-5 [facility] Work Phone: Blood lymphocytes/100 leukoc yteson 03-07-2022 Lymphocytes/100 WBC (Bld) 5 % 19-41 [facility] Work Phone: Blood metamyelocytes/100 jannet kocyteson 03-07-2022 Metamyelocytes/100 WBC (Bld) 1 % 0-1 [facility] Work Phone: [phone] Blood monocytes/100 leukocyt eson 03-07-2022 Monocytes/100 WBC (Bld) 6 % 0-10 [facility] Work Phone: [phone] Blood platelet adequacy dete ction by light microscopyon 03-07-2022 Platelets LM Ql (Bld) ADEQUATE ADEQ [facility] Work Phone: [phone] Blood polychromasia detectio n by light microscopyon 03-07-2022 Polychromasia LM Ql (Bld) RARE [facility] Work Phone: Blood segmented neutrophils/ 100 leukocyteson 03-07-2022 Segmented neutrophils/100 WBC (Bld) 74 % 47-70 [facility] Work Phone: [phone] Laboratory - Hematology and Cell countson 03-07-2022 Myelocytes/100 WBC (Bld) 1 % 0-0 [facility] Work Phone: [phone] RBC morphologyon 03-07-2022 RBC morphology finding Nom (Bld) NORM C+C NORMAL NORM C&C [facility] Work Phone: [phone] Review by pathologiston 05-0 Pathologist review Timur (Unsp spec) [Interp] Reviewed [facility] Work Phone: Comment on above: Previous reported re sult: Bruna calloway Edited by: RGOOD on 03/10/22:1248Neutrophilic left shift.Macrocytic anemia.Nick Cadena M.D. 03/10/22 AMENDED REPORT 03/10/22 1248 PATH REV previously reported as: Bruna calloway Total cell counton 2 Cells counted Molgen (Bld/Tiss) [#] 100 MANUAL DIFF [facility] Work Phone: Urine sediment fine granular cast count by microscopy (number/low power field)on 03-01-2022 Fine Granular Casts LM.LPF (Urine sed) [#/Area] 0-5 SEEN /lpf 0-5 [facility] Work Phone: COVID-19, MOLECULARon 2021 SARS-CoV-2 (COVID-19) RNA ANUJ+probe Ql (Unsp spec) Not detected Normal Not Detected [facility] Comment on above: Order Comment: Injur y/Trauma or Illness?:Illness/Other How long have you had these symptoms (acute/chronic)?:Acute Reason for exam?:right hip fx Type of Exam?:Initial Additional signs and symptoms?:n/a Performed By: #### L [id number] ####[facility] [address] [place], [place] [address] Andrew Rendon M.D. [id number] XR HIP RIGHT 1 VIEWon 2021 XR HIP RIGHT 1 VIEW EXAMINATION: XR HIP RIGHT 1 VIEW 02/13/2022 10:00 am HISTORY: ORDERING SYSTEM PROVIDED HISTORY: ARTHOPLASTY, TECHNOLOGIST PROVIDED HISTORY: Injury/Trauma Reason for exam: ARTHOPLASTY Cancer History: Surgery, RadiationHistory: Encounter Type: Initial Mechanism of injury: FALL ORDERING SYSTEM PROVIDED DIAGNOSIS CODES: I50.22 Chronic systolic heart failure (HCC) Z01.818 Preoperative examination I25.10 Coronary artery disease, unspecified vessel or lesion type, unspecified whether angina present, unspecified whether [place] or transplanted heart I48.91 Atrial fibrillation and flutter (HCC) I48.92 Atrial fibrillation and flutter (HCC) COMPARISON: CT scan right hip 02/11/2022. FINDINGS: A single frontal intraoperative view of the right hip was obtained. There has been resection of the right femoral head/neck and placement of a hemiarthroplasty the prosthesis into the proximal femoral metadiaphysis. There is a surgical wound laterally. There are vascular calcifications. An immediate interpretation of this study was not requested at the time of surgery. IMPRESSION: Satisfactory intraoperative appearance of a right hip hemiarthroplasty prosthesis. Workstation ID: [id number] Dictated by: ÁLVARO DAVIS on Sat Feb 13, 2022 11:48:58 PM EDT Transcribed by: ÁLVARO DAVIS on Sat Feb 13, 2022 11:48:58 PM EDT Finalized by: ÁLVARO DAVIS on [facility] Feb 13, 2022 11:48:58 PM EDT Normal [facility] Comment on above: Order Comment: Injur y/Trauma or Illness?:Injury/Trauma How long have you had these symptoms (acute/chronic)?:Acute Reason for exam?:ARTHOPLASTY History of cancer?: Surgeries, chemotherapy, or radiation?: Type of Exam?:Initial Mechanism of injury?:FALL CT HIP RIGHT WITHOUT CONTRAS Ton 02-11-2022 CT HIP RIGHT WITHOUT CONTRAST EXAMINATION: CT HIP RIGHT WITHOUT CONTRAST HISTORY: ORDERING SYSTEM PROVIDED HISTORY: Fracture, hip, TECHNOLOGIST PROVIDED HISTORY: Illness/Other Reason for exam: right hip fx Encounter Type: Initial Additional signs and symptoms: n/a ORDERING SYSTEM PROVIDED DIAGNOSIS CODES: I50.22 Chronic systolic heart failure (HCC) Z01.818 Preoperative examination I25.10 Coronary artery disease, unspecified vessel or lesion type, unspecified whether angina present, unspecified whether t[place] or transplanted heart I48.91 Atrial fibrillation and flutter (HCC) I48.92 Atrial fibrillation and flutter (HCC) COMPARISON: Plain radiograph 02/10/2022 TECHNIQUE: Dose reduction techniques were achieved by using automated exposure control and/or adjustment of mA and/or kV according to patient size and/or use of iterative reconstruction technique. Helical CT images of the bony pelvis and right hip were obtained without contrast FINDINGS: There is an acute mildly displaced/impacted right subcapital femoral neck fracture. No other acute displaced fracture identified involving the right hemipelvis. No other acute displaced fracture identified involving the hips or bony pelvis. The sacroiliac joints and pubic symphysis are congruent. Underlying moderate to severe bilateral hip osteoarthritis, right greater than left. Superior endplate irregularity involving the L4 vertebral body is of uncertain chronicity. Limited evaluation of the pelvic viscera is without acute abnormality. A moderate sized right inguinal hernia contains loops of bowel without evidence of obstruction. Extensive colonic diverticulosis. The bladder is decompressed by Calderon catheter. IMPRESSION: Mildly displaced/impacted right subcapital femoral neck fracture. Workstation ID: [id number] Dictated by: BERNARDA HOLLIS on TueFeb 11, 2022 3:43:38 PM EDT Transcribed by: BERNARDA HOLLIS on TueFeb 11, 2022 3:43:38 PM EDT Finalized by: BERNARDA HOLLIS on TueFeb 11, 2022 3:43:38 PM EDT [facility] Comment on above: Order Comment: Injur y/Trauma or Illness?:Illness/Other How long have you had these symptoms (acute/chronic)?:Acute Reason for exam?:right hip fx Type of Exam?:Initial Additional signs and symptoms?:n/a ECHOCARDIOGRAM COMPLETEon ECHOCARDIOGRAM COMPLETE Patient Info Name: STEPH BAUMANN Age: 71 years : 1950 Gender: Male Ht: 175 cm Wt: 74 kg BSA: 1.91 m2 HR: 88 bpm BP: 102 / 65 mmHg Heart Rhythm: Sinus Rhythm Technical Quality: Good Exam Date: 02/11/2022 11:55 AM Patient Status: Inpatient Diagnostic Tech: Shayne, Ela, TOBIAS Exam Type: ECHOCARDIOGRAM COMPLETE Study Info Indications I50.9 - Heart failure, unspecified Referring Physician: SYSTEM, PROVIDER NOT IN ; [id number] BMI: 24.22 kg/m2 Summary 1. Left ventricular systolic function is normal with an ejection fraction by Biplane Method of Discs of 54 %. 2. The left ventricular diastolic function is grade II diastolic dysfunction, consistent with midly elevated left atrial pressure. 3. Right ventricle is normal in size with normal systolic function. 4. There is moderate tricuspid valve regurgitation. 5. There is pulmonary hypertension, estimated right ventricle systolic pressure is 52 mmHg. History/Risk Factors Coronary Artery Disease (CAD) Yes Cardiomyopathy/LV Systolic Dysfunction: Yes Diabetes Mellitus: Yes History/Risk Factors pulmonary htn. rt hip fracture. sleep apnea. a-fib. Procedure(s): Complete two-dimensional, color flow and Doppler transthoracic echocardiogram is performed. Left Ventricle Left ventricular chamber dimension is normal. Left ventricular systolic function is normal with an ejection fraction by Biplane Method of Discs of 54 %. Moderate left ventricular concentric hypertrophy. Left ventricular segmental wall motion is normal. The left ventricular diastolic function is grade II diastolic dysfunction, consistent with midly elevated left atrial pressure. Right Ventricle Pacemaker wire noted in right ventricle. Right ventricular chamber dimension is mildly enlarged. Right ventricular systolic function is reduced. Left Atria Left atrial chamber is severely enlarged with a left atrial volume index of 54 ml/m2 by BP MOD. Right Atria Right atrial chamber dimension is enlarged. Aortic Valve The aortic valve is trileaflet. There is no aortic valve sclerosis. There is no aortic valve stenosis with a peak velocity of 1.7 m/s, mean gradient of 4 mmHg, and aortic valve area of 2.7 cm2. There is no aortic valve regurgitation. Pulmonic Valve The pulmonic valve is normal. There is no pulmonic valve stenosis. There is trace pulmonic regurgitation. Mitral Valve The mitral valve has normal leaflets. There is no mitral valve stenosis. There is trace mitral valve regurgitation. Tricuspid Valve The tricuspid valve leaflets are normal. There is no significant tricuspid valve stenosis. There is moderate tricuspid valve regurgitation. There is pulmonary hypertension, estimated right ventricle systolic pressure is 52 mmHg. Pericardium/Pleural The pericardium appears normal. There is no pericardial effusion. Inferior Vena Cava Normal inferior vena cava with >50% collapse upon inspiration consistent with normal right atrial pressure. Aorta The aortic measurements are indexed to age and body surface area. The aortic root is normal measuring 3.3 cm with an index of 1.7 cm/m2. The proximal ascending aorta is normal measuring 3.0 cm with an index of 1.6 cm/m2. Wall Motion Scoring Wall Motion Scoring Index: 1.00 Left Ventricular Outflow Tract Name Value Normal LVOT 2D LVOT Diameter 2.3 cm LVOT Doppler LVOT Peak Velocity 1.1 m/s LVOT Peak Gradient 4 mmHg LVOT Mean Gradient 2 mmHg LVOT VTI 18 cm LVOT VTI/AV VTI Ratio 0.7 LVOT Stroke Volume 73 ml LVOT Stroke Index 38.48 ml/m2 Pulmonic Valve Name Value Normal RVOT Doppler RVOT Peak Velocity 77 cm/s RVOT Peak Gradient 2 mmHg RVOT Mean Gradient 1 mmHg RVOT VTI 11 cm Mitral Valve Name Value Normal MV Doppler MV Peak Velocity 0.99 m/s MV Peak Gradient 4 mmHg MV Mean Gradient 1 mmHg MV VTI 22 cm MV Decel [place] 371 cm/s2 MV PHT 61 ms MV Area (PHT) 3.6 cm2 4.0-5.0 MV Area (Cont Eq VTI) 3.4 cm2 MV Area Index (Cont Eq VTI) 1.78 cm2/m2 MV Diastolic Function MV E Peak Velocity 1 m/s MV A Peak Velo (more content not included)... Normal [facility] Absolute lymphocyte counton 02-10-2022 Lymphocytes Auto (Unsp spec) [#/Vol] 0.11 10*3/uL 0.83-4.51 [facility] Work Phone: [phone] Basophil percentageon 2021 Basophil percentage 3.5 mg/dL 2.5-4.9 [facility]: Basophils/100 WBC (Bld) 0.1 % 0-1 [facility] Work Phone: [phone] Chloride [Moles/Vol] 111 mmol/L 98-107 [facility] Work Phone: Eosinophils/100 WBC (Bld) 0.6 % 0-5 [facility] Work Phone: [phone] Glucose [Mass/Vol] 232 mg/dL 74-106 [facility] Work Phone: [phone] Comment on above: Glucose result great er than or equal to 200 mg/dLsuggests DIABETES MELLITUS per A.D.A. criteria. Lactate [Moles/Vol] 0.8 mmol/L 0.4-2.0 [facility] Work Phone: [phone] Neutrophils (Bld) [#/Vol] 6.3 10*3/uL 2.0-7.7 [facility] Work Phone: Neutrophils/100 WBC (Bld) 93.4 % 47-70 [facility] Work Phone: Potassium [Moles/Vol] 4.0 mmol/L 3.5-5.1 [facility] Work Phone: [phone] Sodium [Moles/Vol] 139 mmol/L 136-145 [facility] Work Phone: [phone] WBC (Bld) [#/Vol] 6.7 10*3/uL 4.4-11.0 [facility] Work Phone: [phone] Blood erythrocytes count (nu mber/volume)on 02-10-2022 RBC (Bld) [#/Vol] 3.58 10*6/uL 4.6-6.2 [facility] Work Phone: [phone] Blood hemoglobin measurement (mass/volume)on 02-10-2022 Hemoglobin (Bld) [Mass/Vol] 11.7 g/dL 13.0-16.5 [facility] Work Phone: [phone] Blood lymphocytes/100 leukoc yteson 02-10-2022 Lymphocytes/100 WBC (Bld) 1.6 % 19-41 [facility] Work Phone: [phone] Blood manual differential co mment interpretation (narrative result)on 02-10-2022 Manual differential comment Timur (Bld) [Interp] COMMENT [facility] Work Phone: Comment on above: LYMPHOPENIA. Blood monocytes/100 leukocyt eson 02-10-2022 Monocytes/100 WBC (Bld) 4.0 % 0-10 [facility] Work Phone: [phone] Blood platelet adequacy dete ction by light microscopyon 02-10-2022 Platelets LM Ql (Bld) MOD DEC ADEQ [facility] Work Phone: [phone] Blood platelet mean volumeon 02-10-2022 Platelet mean volume (Bld) [Entitic vol] 10.8 fL 6.2-12.0 [facility] Work Phone: [phone] Determination of erythrocyte mean corpuscular volume (MCV)on 02-10-2022 MCV (RBC) [Entitic vol] 95.0 fL 80-94 [facility] Work Phone: Hematocrit Auto (Bld) [Volum e fraction]on 02-10-2022 Hematocrit (Bld) [Volume fraction] 34.0 % 40-54 [facility] Work Phone: [phone] INR in Blood by Coagulation assayon 02-10-2022 INR Coag (Bld) [Relative time] 1.5 {INR} [facility] Work Phone: [phone] Laboratory - Chemistry and C hemistry - challengeon 02-10-2022 CO2 [Moles/Vol] 25.0 mmol/L 21.0-32.0 [facility] Work Phone: Magnesium [Mass/Vol] 2.0 mg/dL 1.6-2.6 [facility] Work Phone: [phone] Urea nitrogen/Creatinine [Mass ratio] 18.8 mg/mg 10-20 [facility] Work Phone: Laboratory - Coagulationon 0 02-10-2022 aPTT Coag (Bld) [Time] 34.8 s 24.1-36.2 [facility] Work Phone: PT Coag (PPP) [Time] 17.6 s 11.7-14.9 [facility] Work Phone: Laboratory - Hematology and Cell countson 02-10-2022 Erythrocyte distribution width (RBC) [Entitic vol] 48.6 fL 35.1-43.9 [facility] Work Phone: [phone] Erythrocyte distribution width (RBC) [Ratio] 14.3 % 11.6-14.6 [facility] Work Phone: [phone] Immature granulocytes/100 WBC (Bld) 0.300 % 0.0-0.9 [facility] Work Phone: [phone] Comment on above: IG% - Immature Granu locytes (promyelocytes, myelocytes and metamyelocytes) > 1% indicates that a LEFT SHIFT is Present. MCH (RBC) [Entitic mass] 32.7 pg 27.0-32.0 [facility] Work Phone: Nucleated RBC/100 WBC (Bld) [Ratio] 0 % 0-5 [facility] Work Phone: Laboratory - Microbiology an d Antimicrobial susceptibilityon 02-10-2022 Bacteria identified Cx Nom (Bld) No growth in 5 days. [facility] Work Phone: MCHC Auto (RBC) [Mass/Vol]on 02-10-2022 MCHC (RBC) [Mass/Vol] 34.4 g/dL 32-36 [facility] Work Phone: No Panel Informationon 02-10 Estimated Creatinine Clearance Calc 50.52 ml/min [facility] Work Phone: Estimated GFR (MDRD) Amer 66 mL/min >60 [facility] Work Phone: Comment on above: GFR Calc Estimated GFR (MDRD) Non-Af Amer 54 mL/min >60 [facility] Work Phone: Comment on above: Non- GFR Calc SARS-CoV-2 & FLU Antigen (Rapid) [facility] Work Phone: Platelets bldon 02-10-2022 Platelets (Bld) [#/Vol] 75 10*3/uL 150-450 [facility] Work Phone: Serum or plasma calcium aby urement (mass/volume)on 02-10-2022 Calcium [Mass/Vol] 9.2 mg/dL 8.5-10.1 [facility] Work Phone: Serum or plasma creatinine m easurement (mass/volume)on 02-10-2022 Creatinine [Mass/Vol] 1.38 mg/dL 0.70-1.30 [facility] Work Phone: Comment on above: The validity of the calculated GFR & GFRAA in patients over 70 years has not been determined. Clinical correlation is essential. Serum or plasma urea nitroge n measurement (mass/volume)on 02-10-2022 Urea nitrogen [Mass/Vol] 26 mg/dL 7-18 [facility] Work Phone: Serum procalcitonin measurem enton 02-10-2022 Procalcitonin [Mass/Vol] 0.30 ng/mL 0.00-0.09 [facility] Work Phone: Comment on above: A procalcitonin (PCT ) level above 2.0 ng/mL on the first day of ICU admission is associated with a high risk for progression to severe sepsis and/or septic shock. A PCT level below 0.5 ng/mL on the first day of ICU admission is associated with a low risk for progression to severe and/or septic shock. Note: Concentrations <0.5 ng/mL do not exclude an infection on account of localized infections (without systemic signs) which can be associated with such low concentrations, or a systemic infection in its initial stages (<6 hours). Furthermore, increased procalcitonin can occur without infection. PCT concentrations between 0.5 and 2.0 ng/mL should be interpreted taking into account the patient's history. It is recommended to retest PCT within 6-24 hours if any concentrations <2 ng/mL are obtained. Thin prep Papanicolaou smear with manual screeningon 02-10-2022 Thin prep Papanicolaou smear with manual screening 3 03-21 [facility] Work Phone: XR CHEST PA/APon 02-10-2022 XR CHEST PA/AP EXAMINATION: XR CHEST PA/AP HISTORY: ORDERING SYSTEM PROVIDED HISTORY: preop eval, TECHNOLOGIST PROVIDED HISTORY: Illness/Other Reason for exam: preop chest evaluation, hip fx Cancer History: Surgery, RadiationHistory: Encounter Type: Initial Additional signs and symptoms: ORDERING SYSTEM PROVIDED DIAGNOSIS CODES: COMPARISON: None. FINDINGS: One-view chest x-ray. No pneumothorax. Diffuse prominence of the central interstitial markings. No focal airspace consolidation. No significant pleural effusion. Prominent heart size. 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 Diffuse generalized osteopenia. No acute osseous abnormality identified. IMPRESSION: Diffuse prominence of the central interstitial markings, suggestive of developing pulmonary edema or pneumonitis. ST/[facility]Fe Workstation ID: [id number] Dictated by: AMBROSIO DENNEY on TueFeb 11, 2022 9:13:18 AM EDT Transcribed by: SIDDHARTH YANG on TueFeb 11, 2022 9:53:14 AM EDT Finalized by: AMBROSIO DENNEY on Dara Feb 11, 2022 7:10:32 PM EDT [facility] Comment on above: Order Comment: Injur y/Trauma or Illness?:Illness/Other How long have you had these symptoms (acute/chronic)?:Acute Reason for exam?:preop chest evaluation, hip fx History of cancer?: Surgeries, chemotherapy, or radiation?: Type of Exam?:Initial Additional signs and symptoms?: XR HIP RIGHT 2-3 VIEWS (ROUT INE)on 02-10-2022 XR HIP RIGHT 2-3 VIEWS (ROUTINE) EXAMINATION: XR HIP RIGHT 2-3 VIEWS (ROUTINE) HISTORY: ORDERING SYSTEM PROVIDED HISTORY: Fracture due to mechanical fall, TECHNOLOGIST PROVIDED HISTORY: Injury/Trauma Reason for exam: right hip pain Cancer History: Surgery, RadiationHistory: Encounter Type: Initial Mechanism of injury: fall ORDERING SYSTEM PROVIDED DIAGNOSIS CODES: COMPARISON: None. FINDINGS: Two views of the right hip. Irregularity at the right femoral neck. Suspect impacted subcapital femoral neck fracture. No additional fractures. No subluxation or dislocation. Right hip joint space narrowing with osteophytic spurring, suggestive of moderate osteoarthritis. Moderate scattered arterial vascular calcifications. Some surgical clips noted in the lower pelvis. IMPRESSION: Suspect right impacted subcapital femoral neck fracture. ST/lab Workstation ID: [id number] Dictated by: AMBROSIO DENNEY on Dara Feb 11, 2022 9:30:57 AM EDT Transcribed by: RADHA BAUMANN on Dara Feb 11, 2022 10:07:19 AM EDT Finalized by: AMBROSIO DENNEY on Dara Feb 11, 2022 7:17:10 PM EDT [facility] Comment on above: Order Comment: Injur y/Trauma or Illness?:Injury/Trauma How long have you had these symptoms (acute/chronic)?:Acute Reason for exam?:right hip pain History of cancer?: Surgeries, chemotherapy, or radiation?: Type of Exam?:Initial Mechanism of injury?:fall Basophil percentageon 2021 Creatinine [Mass/Vol] 1.0 mg/dL 0.70-1.30 [facility] Work Phone: No Panel Informationon 01-14 Bedside Estimated GFR (eGFR) > 60.0000 mL/min >60 [facility] Work Phone: Glucose Glucometer (BldC) [M ass/Vol]on 01-06-2022 Glucose [Mass/Vol] 192 mg/dL 70-110 [facility] Work Phone: Comment on above: MANAGEMENT OF PATIEN T CARE PER NURSING PROTOCOL No Panel Informationon 01-04 SARS-CoV-2 Antigen (Rapid) [facility] Work Phone: Basophil percentageon 2021 Creatinine [Mass/Vol] 1.4 mg/dL 0.70-1.30 [facility] Work Phone: No Panel Informationon 11-19 Bedside Estimated GFR (eGFR) > 60.0000 mL/min >60 [facility] Work Phone: Culture, urine Bacteria identified Cx Nom (U) Culture exhibits no growth. [facility] Work Phone: Laboratory - Microbiology an d Antimicrobial susceptibility Bacteria identified Cx Nom (Bld) No growth in 5 days. [facility] Work Phone: No Panel Information SARS-CoV-2 & FLU Antigen (Rapid) [facility] Work Phone: SARS-CoV-2 Antigen (Rapid) [facility] Work Phone: Vital Signs Date Time Vital Sign Value Performing Clinician Facility 05-16-2025 14:49-0400 Body height 175.3 cm El Lucio MD Work Phone: [facility] 05-16-2025 14:49-0400 Body mass index (BMI) [Ratio] 25.43 kg/m2 El Lucio MD Work Phone: [facility] 05-16-2025 14:49-0400 Body temperature 97.5 [degF] El Lucio MD Work Phone: [facility] 05-16-2025 14:49-0400 Body weight 78.11 kg El Lucio MD Work Phone: [facility] 05-16-2025 14:49-0400 Diastolic blood pressure 64 mm[Hg] El Lucio MD Work Phone: [facility] 05-16-2025 14:49-0400 Heart rate 70 /min El Lucio MD Work Phone: [facility] 05-16-2025 14:49-0400 Systolic blood pressure 113 mm[Hg] El Lucio MD Work Phone: [facility] 03-06-2025 10:22-0400 Body temperature 97.5 [degF] Jonnathan Masci DO Work Phone: [facility] 03-06-2025 10:22-0400 Diastolic blood pressure 52 mm[Hg] Jonnathan Masci DO Work Phone: [facility] 03-06-2025 10:22-0400 Heart rate 57 /min Jonnathan Masci DO Work Phone: [facility] 03-06-2025 10:22-0400 SaO2% (BldA) [Mass fraction] 98 % Jonnathan Masci DO Work Phone: [facility] 03-06-2025 10:22-0400 Systolic blood pressure 98 mm[Hg] Jonnathan Masci DO Work Phone: [facility] 02-13-2025 15:04-0400 Body height 175.3 cm Merlin Loredo MD Work Phone: [facility] 02-13-2025 15:04-0400 Body mass index (BMI) [Ratio] 26.29 kg/m2 Merlin Loredo MD Work Phone: [facility] 02-13-2025 15:04-0400 Body temperature 97.59 [degF] Merlin Loredo MD Work Phone: [facility] 02-13-2025 15:04-0400 Body weight 80.74 kg Merlin Loredo MD Work Phone: [facility] 02-13-2025 15:04-0400 Diastolic blood pressure 42 mm[Hg] Mrelin Loredo MD Work Phone: [facility] Comment on above: Pt denies h/a, nausea, dizziness. WNL pe r patient. No distress noted. Dr rodriguez. 02-13-2025 15:04-0400 Heart rate 40 /min Merlin Loredo MD Work Phone: [facility] Comment on above: Pt denies h/a, nausea, dizziness. WNL pe r patient. No distress noted. Dr rodriguez. 02-13-2025 15:04-0400 SaO2% (BldA) [Mass fraction] 95 % Merlin Loredo MD Work Phone: [facility] 02-13-2025 15:04-0400 Systolic blood pressure 96 mm[Hg] Merlin Loredo MD Work Phone: [facility] Comment on above: Pt denies h/a, nausea, dizziness. WNL pe r patient. No distress noted. Dr rodriguez. 01-24-2025 08:20-0400 Body temperature 98 [degF] Dr. Manuel Beebe MD Work Phone: [facility] 01-24-2025 08:20-0400 Diastolic blood pressure 68 mm[Hg] Dr. Manuel Beebe MD Work Phone: [facility] 01-24-2025 08:20-0400 Heart rate 70 /min Dr. Manuel Beebe MD Work Phone: [facility] 01-24-2025 08:20-0400 Respiratory rate 15 /min Dr. Manuel Beebe MD Work Phone: [facility] 01-24-2025 08:20-0400 SaO2% (BldA) [Mass fraction] 97 % Dr. Manuel Beebe MD Work Phone: [facility] 01-24-2025 08:20-0400 Systolic blood pressure 110 mm[Hg] Dr. Manuel Beebe MD Work Phone: [facility] 12-12-2024 15:18-0500 Diastolic blood pressure 69 mm[Hg] Injection Wstr Work Phone: [facility] 12-12-2024 15:18-0500 Heart rate 66 /min Injection Wstr Work Phone: [facility] 12-12-2024 15:18-0500 Respiratory rate 12 /min Injection Wstr Work Phone: [facility] 12-12-2024 15:18-0500 SaO2% (BldA) [Mass fraction] 96 % Injection Wstr Work Phone: [facility] 12-12-2024 15:18-0500 Systolic blood pressure 103 mm[Hg] Injection Wstr Work Phone: [facility] 12-12-2024 11:11-0500 Body height 175.[address] Manuel Beebe MD Work Phone: [phone] [place] [address] 12-12-2024 11:11-0500 Body mass index (BMI) [Ratio] 24.5 kg/m2 Dr. Manuel Beebe MD Work Phone: [phone] [place] [address] 12-12-2024 11:11-0500 Body weight 75.[address] Manuel Beebe MD Work Phone: [phone] [place] [address] 12-12-2024 11:11-0500 Diastolic blood pressure 66 mm[Hg] Dr. Manuel Beebe MD Work Phone: [phone] [place] [address] 12-12-2024 11:11-0500 Heart rate 69 /min Dr. Manuel Beebe MD Work Phone: [phone] [place] [address] 12-12-2024 11:11-0500 Respiratory rate 18 /min Dr. Manuel Beebe MD Work Phone: [phone] [place] [address] 12-12-2024 11:11-0500 SaO2% (BldA) [Mass fraction] 98 % Dr. Manuel Beebe MD Work Phone: [phone] [place] [address] 12-12-2024 11:11-0500 Systolic blood pressure 119 mm[Hg] Dr. Manuel Beebe MD Work Phone: [facility] 09-19-2024 15:17-0500 Diastolic blood pressure 58 mm[Hg] Injection Wstr Work Phone: [facility] 09-19-2024 15:17-0500 Heart rate 72 /min Injection Wstr Work Phone: [facility] 09-19-2024 15:17-0500 Respiratory rate 12 /min Injection Wstr Work Phone: [facility] 09-19-2024 15:17-0500 SaO2% (BldA) [Mass fraction] 100 % Injection Wstr Work Phone: [facility] 09-19-2024 15:17-0500 Systolic blood pressure 100 mm[Hg] Injection Wstr Work Phone: [facility] 09-05-2024 11:10-0400 Body temperature 97.3 [degF] Balta Anna Work Phone: [facility] 09-05-2024 11:10-0400 Diastolic blood pressure 67 mm[Hg] Balta Anna Work Phone: [facility] 09-05-2024 11:10-0400 Heart rate 64 /min Balta Anna Work Phone: [facility] 09-05-2024 11:10-0400 SaO2% (BldA) [Mass fraction] 96 % Balta Anna Work Phone: [facility] 09-05-2024 11:10-0400 Systolic blood pressure 91 mm[Hg] Balta Anna Work Phone: [facility] 08-28-2024 14:43-0400 Body height 175.3 cm Merlin Loredo MD Work Phone: [facility] 08-28-2024 14:43-0400 Body mass index (BMI) [Ratio] 25.4 kg/m2 Merlin Loredo MD Work Phone: [facility] 08-28-2024 14:43-0400 Body temperature 97.7 [degF] Merlin Loredo MD Work Phone: [facility] 08-28-2024 14:43-0400 Body weight 78.02 kg Merlin Loredo MD Work Phone: [facility] 08-28-2024 14:43-0400 Diastolic blood pressure 57 mm[Hg] Merlin Loredo MD Work Phone: [facility] Comment on above: Pt denies h/a, nausea, dizziness. WNL pe r pt. No distress noted. notified. 08-28-2024 14:43-0400 Heart rate 69 /min Merlin Loredo MD Work Phone: [facility] 08-28-2024 14:43-0400 SaO2% (BldA) [Mass fraction] 98 % Merlin Loredo MD Work Phone: [facility] 08-28-2024 14:43-0400 Systolic blood pressure 107 mm[Hg] Merlin Loredo MD Work Phone: [facility] Comment on above: Pt denies h/a, nausea, dizziness. WNL pe r pt. No distress noted. notified. 08-22-2024 11:30-0400 Diastolic blood pressure 68 mm[Hg] Heladio Ramsey MD Work Phone: [facility] 08-22-2024 11:30-0400 Heart rate 66 /min Heladio Ramsey MD Work Phone: [facility] 08-22-2024 11:30-0400 SaO2% (BldA) [Mass fraction] 100 % Heladio Ramsey MD Work Phone: [facility] 08-22-2024 11:30-0400 Systolic blood pressure 128 mm[Hg] Heladio Ramsey MD Work Phone: [facility] 08-22-2024 11:20-0400 Respiratory rate 18 /min Heladio Ramsey MD Work Phone: [facility] 08-22-2024 10:30-0400 Body temperature 97.5 [degF] Heladio Ramsey MD Work Phone: [facility] 08-22-2024 09:54-0400 Body height 175.3 cm Heladio Ramsey MD Work Phone: [facility] 08-22-2024 09:54-0400 Body mass index (BMI) [Ratio] 25.4 kg/m2 Heladio Ramsey MD Work Phone: [facility] 08-22-2024 09:54-0400 Body weight 78.02 kg Heladio Ramsey MD Work Phone: [facility] 06-20-2024 11:02-0400 Diastolic blood pressure 59 mm[Hg] Injection Wstr Work Phone: [facility] 06-20-2024 11:02-0400 Heart rate 70 /min Injection Wstr Work Phone: [facility] 06-20-2024 11:02-0400 Respiratory rate 12 /min Injection Wstr Work Phone: [facility] 06-20-2024 11:02-0400 SaO2% (BldA) [Mass fraction] 99 % Injection Wstr Work Phone: [facility] 06-20-2024 11:02-0400 Systolic blood pressure 90 mm[Hg] Injection Wstr Work Phone: [facility] 06-13-2024 14:18-0400 Body height 177.8 cm Maximo Serrano MD Work Phone: [facility] 06-13-2024 14:18-0400 Body mass index (BMI) [Ratio] 25.11 kg/m2 Maximo Serrano MD Work Phone: [facility] 06-13-2024 14:18-0400 Body weight 79.38 kg Maximo Serrano MD Work Phone: [facility] 2024 09:08-0400 Body temperature 97.3 [degF] Injection Wstr Work Phone: [facility] 2024 09:08-0400 Diastolic blood pressure 75 mm[Hg] Injection Wstr Work Phone: [facility] 2024 09:08-0400 Heart rate 70 /min Injection Wstr Work Phone: [facility] 2024 09:08-0400 SaO2% (BldA) [Mass fraction] 99 % Injection Wstr Work Phone: [facility] 2024 09:08-0400 Systolic blood pressure 114 mm[Hg] Injection Wstr Work Phone: [facility] 05-01-2024 16:08-0400 Body height 175.3 cm Kourtney Bhatia MD Work Phone: [facility] Comment on above: self-reported 05-01-2024 16:08-0400 Body mass index (BMI) [Ratio] 25.84 kg/m2 Kourtney Bhatia MD Work Phone: [facility] 05-01-2024 16:08-0400 Body weight 79.38 kg Kourtney Bhatia MD Work Phone: [facility] Comment on above: self-reported 05-01-2024 16:08-0400 Diastolic blood pressure 62 mm[Hg] Kourtney Bhatia MD Work Phone: [facility] 05-01-2024 16:08-0400 Heart rate 69 /min Kourtney Bhatia MD Work Phone: [facility] 05-01-2024 16:08-0400 Respiratory rate 20 /min Kourtney Bhatia MD Work Phone: [facility] 05-01-2024 16:08-0400 SaO2% (BldA) [Mass fraction] 98 % Kourtney Bhatia MD Work Phone: [facility] 05-01-2024 16:08-0400 Systolic blood pressure 104 mm[Hg] Kourtney Bendaram MD Work Phone: [facility] 03-21-2024 11:24-0400 Body mass index (BMI) [Ratio] 25.84 kg/m2 Jonnathan Swift DO Work Phone: [facility] 03-21-2024 11:24-0400 Body temperature 97.11 [degF] Jonnathan Travisi DO Work Phone: [facility] 03-21-2024 11:24-0400 Body weight 79.38 kg Jonnathan Travisi DO Work Phone: [facility] 03-21-2024 11:24-0400 Diastolic blood pressure 57 mm[Hg] Jonnathan Travisi DO Work Phone: [facility] 03-21-2024 11:24-0400 Heart rate 65 /min Jonnathan Travisi DO Work Phone: [facility] 03-21-2024 11:24-0400 SaO2% (BldA) [Mass fraction] 96 % Jonnathan Swift DO Work Phone: [facility] 03-21-2024 11:24-0400 Systolic blood pressure 89 mm[Hg] Jonnathan Travisi DO Work Phone: [facility] 03-14-2024 11:32-0400 Body height 175.3 cm Merlin Loredo MD Work Phone: [facility] 03-14-2024 11:32-0400 Body mass index (BMI) [Ratio] 25.84 kg/m2 Merlin Loredo MD Work Phone: [facility] 03-14-2024 11:32-0400 Body temperature 98.8 [degF] Merlin Loredo MD Work Phone: [facility] 03-14-2024 11:32-0400 Body weight 79.38 kg Merlin Loredo MD Work Phone: [facility] 03-14-2024 11:32-0400 Diastolic blood pressure 53 mm[Hg] Merlin Loredo MD Work Phone: [facility] Comment on above: Pt denies h/a, nausea, dizziness. WNL pe r pt. No distress noted. Dr rodriguez. 03-14-2024 11:32-0400 Heart rate 70 /min Merlin Loredo MD Work Phone: [facility] 03-14-2024 11:32-0400 SaO2% (BldA) [Mass fraction] 100 % Merlin Loredo MD Work Phone: [facility] 03-14-2024 11:32-0400 Systolic blood pressure 93 mm[Hg] Merlin Loredo MD Work Phone: [facility] Comment on above: Pt denies h/a, nausea, dizziness. WNL pe r pt. No distress noted. Dr rodriguez. 12-21-2023 14:52-0500 Body temperature 97.9 [degF] Injection Wstr Work Phone: [facility] 12-21-2023 14:52-0500 Diastolic blood pressure 62 mm[Hg] Injection Wstr Work Phone: [facility] 12-21-2023 14:52-0500 Heart rate 68 /min Injection Wstr Work Phone: [facility] 12-21-2023 14:52-0500 Respiratory rate 12 /min Injection Wstr Work Phone: [facility] 12-21-2023 14:52-0500 SaO2% (BldA) [Mass fraction] 97 % Injection Wstr Work Phone: [facility] 12-21-2023 14:52-0500 Systolic blood pressure 82 mm[Hg] Injection Wstr Work Phone: [facility] 10-13-2023 10:46-0500 Body height 175.[address] Manuel Beebe Work Phone: [facility] 10-13-2023 10:46-0500 Body mass index (BMI) [Ratio] 26.6 kg/m2 Dr. Manuel Beebe Work Phone: [facility] 10-13-2023 10:46-0500 Body temperature 98.4 [degF] Dr. Manuel Beebe Work Phone: 5(306)540-433230 [place] [address] 10-13-2023 10:46-0500 Body weight 81.[address] Manuel Beebe Work Phone: 8(462)936-384030 [place] [address] 10-13-2023 10:46-0500 Diastolic blood pressure 68 mm[Hg] Dr. Manuel Beebe Work Phone: 8(810)939-268930 [place] [address] 10-13-2023 10:46-0500 Heart rate 70 /min Dr. Manuel Beebe Work Phone: 8(261)774-439530 [place] [address] 10-13-2023 10:46-0500 Respiratory rate 17 /min Dr. Manuel Beebe Work Phone: 3(663)092-799530 [place] [address] 10-13-2023 10:46-0500 SaO2% (BldA) [Mass fraction] 96 % Dr. Manuel Beebe Work Phone: 4(097)032-776430 [place] [address] 10-13-2023 10:46-0500 Systolic blood pressure 106 mm[Hg] Dr. Manuel Beebe Work Phone: 6(799)883-944430 [place] [address] 10-06-2023 15:55-0500 Body mass index (BMI) [Ratio] 27.1 kg/m2 Dr. Manuel Beebe Work Phone: 4(573)299-109930 [place] [address] 10-06-2023 15:55-0500 Body weight 83.[address] Manuel Beebe Work Phone: 3(485)987-116830 [place] [address] 10-06-2023 15:55-0500 Diastolic blood pressure 65 mm[Hg] Dr. Manuel Beebe Work Phone: 7(777)375-505730 [place] [address] 10-06-2023 15:55-0500 Heart rate 70 /min Dr. Manuel Beebe Work Phone: 3(171)516-304030 [place] [address] 10-06-2023 15:55-0500 Respiratory rate 16 /min Dr. Manuel Beebe Work Phone: 7(023)800-439730 [place] [address] 10-06-2023 15:55-0500 Systolic blood pressure 102 mm[Hg] Dr. Manuel Beebe Work Phone: 9(148)286-952177 [place] [address] 07-12-2023 14:15-0400 Body height 175.[address] Manuel Beebe Work Phone: 1(773)832-538030 [place] [address] 07-12-2023 14:15-0400 Body mass index (BMI) [Ratio] 25.4 kg/m2 Dr. Manuel Beebe Work Phone: 5(844)937-499630 [place] [address] 07-12-2023 14:15-0400 Body temperature 98.1 [degF] Dr. Manuel Beebe Work Phone: 1(043)229-503130 [place] [address] 07-12-2023 14:15-0400 Body weight 78.[address] Manuel Beebe Work Phone: 8(412)544-119330 [place] [address] 07-12-2023 14:15-0400 Diastolic blood pressure 75 mm[Hg] Dr. Manuel Beebe Work Phone: 3(662)980-866730 [place] [address] 07-12-2023 14:15-0400 Heart rate 67 /min Dr. Manuel Beebe Work Phone: 8(987)007-941030 [place] [address] 07-12-2023 14:15-0400 Respiratory rate 18 /min Dr. Manuel Beebe Work Phone: 5(915)586-433830 [place] [address] 07-12-2023 14:15-0400 SaO2% (BldA) [Mass fraction] 92 % Dr. Manuel Beebe Work Phone: 5(378)538-633430 [place] [address] 07-12-2023 14:15-0400 Systolic blood pressure 112 mm[Hg] Dr. Manuel Beebe Work Phone: 3(584)929-371130 [place] [address] 06-26-2023 08:10-0400 Body temperature 96.8 [degF] Dr. Manuel Beebe Work Phone: 9(228)582-502030 [place] [address] 06-26-2023 08:10-0400 Diastolic blood pressure 81 mm[Hg] Dr. Manuel Beebe Work Phone: 7(317)105-355930 [place] [address] 06-26-2023 08:10-0400 Heart rate 69 /min Dr. Manuel Bebee Work Phone: 9(788)962-761830 [place] [address] 06-26-2023 08:10-0400 Respiratory rate 16 /min Dr. Manuel Beebe Work Phone: 8(323)861-274330 [place] [address] 06-26-2023 08:10-0400 SaO2% (BldA) [Mass fraction] 98 % Dr. Manuel Beebe Work Phone: 0(698)421-271930 [place] [address] 06-26-2023 08:10-0400 Systolic blood pressure 127 mm[Hg] Dr. Manuel Beebe Work Phone: 2(472)213-883130 [place] [address] 06-24-2023 14:17-0400 Body height 175.[address] Manuel Beebe Work Phone: 0(670)443-531030 [place] [address] 06-24-2023 14:17-0400 Body weight [address] Manuel Beebe Work Phone: 1(797)028-773330 [place] [address] 06-22-2023 02:50-0400 Inhaled oxygen flow rate 3 L/min Dr. Manuel Beebe Work Phone: 6(702)207-935930 [place] [address] 06-21-2023 17:53-0400 Body mass index (BMI) [Ratio] 25 kg/m2 Dr. Manuel Beebe Work Phone: 0(674)294-811130 [place] [address] 06-21-2023 17:20-0400 Heart rate 70 /min Dr. Manuel Beebe Work Phone: 3(321)290-648577 [place] [address] 06-21-2023 17:20-0400 Respiratory rate 20 /min Dr. Manuel Beebe Work Phone: 4(718)828-717530 [place] [address] 06-21-2023 17:19-0400 Body temperature 98.4 [degF] Dr. Manuel Beebe Work Phone: 1(020)760-230130 [place] [address] 06-21-2023 17:19-0400 Diastolic blood pressure 64 mm[Hg] Dr. Manuel Beebe Work Phone: 6(482)756-006330 [place] [address] 06-21-2023 17:19-0400 SaO2% (BldA) [Mass fraction] 96 % Dr. Manuel Beebe Work Phone: 9(901)021-056630 [place] [address] 06-21-2023 17:19-0400 Systolic blood pressure 103 mm[Hg] Dr. Manuel Beebe Work Phone: 6(845)137-258930 [place] [address] 06-21-2023 12:22-0400 Body height 175.[address] Manuel Beebe Work Phone: 3(920)140-677430 [place] [address] 06-21-2023 12:22-0400 Body mass index (BMI) [Ratio] 26.3 kg/m2 Dr. Manuel Beebe Work Phone: 9(234)496-657830 [place] [address] 06-21-2023 12:22-0400 Body weight 80.[address] Manuel Beebe Work Phone: 6(581)977-251530 [place] [address] 2023 14:25-0400 Body mass index (BMI) [Ratio] 26.4 kg/m2 Dr. Manuel Beebe Work Phone: 1(110)991-892630 [place] [address] 2023 14:25-0400 Body weight 81.[address] Manuel Beebe Work Phone: 9(183)856-070730 [place] [address] 2023 14:25-0400 Diastolic blood pressure 62 mm[Hg] Dr. Manuel Beebe Work Phone: 3(070)520-032430 [place] [address] 2023 14:25-0400 Heart rate 96 /min Dr. Manuel Beebe Work Phone: 0(384)968-617030 [place] [address] 2023 14:25-0400 Respiratory rate 18 /min Dr. Manuel Beebe Work Phone: 2(891)987-804830 [place] [address] 2023 14:25-0400 Systolic blood pressure 103 mm[Hg] Dr. Manuel Beebe Work Phone: 2(380)559-656730 [place] [address] 04-25-2023 12:31-0400 Body temperature 97.7 [degF] Dr. Manuel Beebe Work Phone: 5(816)893-784230 [place] [address] 04-25-2023 12:31-0400 Diastolic blood pressure 82 mm[Hg] Dr. Manuel Beebe Work Phone: 6(490)966-908330 [place] [address] 04-25-2023 12:31-0400 Heart rate 70 /min Dr. Manuel Beebe Work Phone: 1(883)476-937230 [place] [address] 04-25-2023 12:31-0400 Respiratory rate 18 /min Dr. Manuel Beebe Work Phone: 4(704)174-583130 [place] [address] 04-25-2023 12:31-0400 SaO2% (BldA) [Mass fraction] 95 % Dr. Manuel Beebe Work Phone: 9(567)569-125430 [place] [address] 04-25-2023 12:31-0400 Systolic blood pressure 135 mm[Hg] Dr. Manuel Beebe Work Phone: 4(084)221-822130 [place] [address] 04-24-2023 12:48-0400 Body height 175.[address] Manuel Beebe Work Phone: 6(997)706-303830 [place] [address] 04-24-2023 12:48-0400 Body weight 87.[address] Manuel Beebe Work Phone: 0(600)973-964430 [place] [address] 04-24-2023 09:00-0400 Inhaled oxygen flow rate 2 L/min Dr. Manuel Beebe Work Phone: 3(256)723-966130 [place] [address] 04-23-2023 15:00-0400 Body mass index (BMI) [Ratio] 28.3 kg/m2 Dr. Manuel Beebe Work Phone: 0(565)490-547330 [place] [address] 04-23-2023 14:15-0400 Body temperature 98.4 [degF] Dr. Manuel Beebe Work Phone: 4(979)768-810430 [place] [address] 04-23-2023 14:15-0400 Diastolic blood pressure 75 mm[Hg] Dr. Manuel Beebe Work Phone: 8(992)624-383930 [place] [address] 04-23-2023 14:15-0400 Heart rate 82 /min Dr. Manuel Beebe Work Phone: 6(354)174-442077 [place] [address] 04-23-2023 14:15-0400 Inhaled oxygen flow rate 2 L/min Dr. Manuel Beebe Work Phone: 1(575)694-724630 [place] [address] 04-23-2023 14:15-0400 Respiratory rate 20 /min Dr. Manuel Beebe Work Phone: 3(852)099-026330 [place] [address] 04-23-2023 14:15-0400 SaO2% (BldA) [Mass fraction] 100 % Dr. Manuel Beebe Work Phone: 6(291)862-583330 [place] [address] 04-23-2023 14:15-0400 Systolic blood pressure 146 mm[Hg] Dr. Manuel Beebe Work Phone: 3(543)348-505630 [place] [address] 04-23-2023 10:09-0400 Body height 175.[address] Manuel Beebe Work Phone: 4(721)894-921530 [place] [address] 04-23-2023 10:09-0400 Body mass index (BMI) [Ratio] 25.4 kg/m2 Dr. Manuel Beebe Work Phone: 1(936)161-559130 [place] [address] 04-23-2023 10:09-0400 Body weight [address] Manuel Beebe Work Phone: 8(949)971-823030 [place] [address] 04-16-2023 13:46-0400 Body temperature 97.8 [degF] Dr. Manuel Beebe Work Phone: 0(912)015-925430 [place] [address] 04-16-2023 13:46-0400 Diastolic blood pressure 73 mm[Hg] Dr. Manuel Beebe Work Phone: 6(944)330-839730 [place] [address] 04-16-2023 13:46-0400 Heart rate 70 /min Dr. Manuel Beebe Work Phone: 6(971)201-220030 [place] [address] 04-16-2023 13:46-0400 Respiratory rate 18 /min Dr. Manuel Beebe Work Phone: 9(844)576-972030 [place] [address] 04-16-2023 13:46-0400 SaO2% (BldA) [Mass fraction] 100 % Dr. Manuel Beebe Work Phone: 6(132)901-979177 [place] [address] 04-16-2023 13:46-0400 Systolic blood pressure 122 mm[Hg] Dr. Manuel Beebe Work Phone: 1(617)315-275830 [place] [address] 04-16-2023 02:11-0400 Body mass index (BMI) [Ratio] 27.9 kg/m2 Dr. Manuel Beebe Work Phone: 2(334)083-128730 [place] [address] 04-16-2023 02:11-0400 Body weight 85.[address] Manuel Beebe Work Phone: 1(614)715-228330 [place] [address] 04-13-2023 18:13-0400 Body temperature 96.8 [degF] Dr. Manuel Beebe Work Phone: 9(248)302-429430 [place] [address] 04-13-2023 18:13-0400 Diastolic blood pressure 93 mm[Hg] Dr. Manuel Beebe Work Phone: 4(465)847-650430 [place] [address] 04-13-2023 18:13-0400 Heart rate 73 /min Dr. Manuel Beebe Work Phone: 9(454)075-254430 [place] [address] 04-13-2023 18:13-0400 Respiratory rate 16 /min Dr. Manuel Beebe Work Phone: 2(292)926-722930 [place] [address] 04-13-2023 18:13-0400 SaO2% (BldA) [Mass fraction] 98 % Dr. Manuel Beebe Work Phone: 9(954)370-025430 [place] [address] 04-13-2023 18:13-0400 Systolic blood pressure 124 mm[Hg] Dr. Manuel Beebe Work Phone: 6(491)048-098230 [place] [address] 04-13-2023 14:09-0400 Body height 175.[address] Manuel Beebe Work Phone: 3(900)151-685330 [place] [address] 04-13-2023 14:09-0400 Body mass index (BMI) [Ratio] 27.2 kg/m2 Dr. Manuel Beebe Work Phone: 2(874)020-295530 [place] [address] 04-13-2023 14:09-0400 Body weight 83.[address] Manuel Beebe Work Phone: [facility] 04-12-2023 14:21-0400 Diastolic blood pressure 57 mm[Hg] Olga Styles H[employer] NURSE [employer] Work Phone: [facility] 04-12-2023 14:21-0400 Systolic blood pressure 83 mm[Hg] Olga Styles HOSPITAL NURSE [employer] SUPERVISOR Work Phone: [facility] 04-12-2023 14:10-0400 Body weight 73.48 kg Olga Styles HOSPITAL NURSE [employer] SUPERVISOR Work Phone: [facility] 04-12-2023 14:10-0400 Heart rate 70 /min Olga Styles HOSPITAL NURSE [employer] SUPERVISOR Work Phone: [facility] 04-12-2023 14:10-0400 Respiratory rate 14 /min Olga Styles HOSPITAL NURSE [employer] SUPERVISOR Work Phone: [facility] 04-12-2023 14:10-0400 SaO2% (BldA) [Mass fraction] 99 % Olga Styles HOSPITAL NURSE [employer] SUPER[employer] Work Phone: [facility] 04-12-2023 07:31-0400 Body temperature 97.8 [degF] Dr. Manuel Beebe Work Phone: [facility] 04-12-2023 07:31-0400 Diastolic blood pressure 92 mm[Hg] Dr. Manuel Beebe Work Phone: [facility] 04-12-2023 07:31-0400 Heart rate 70 /min Dr. Manuel Beebe Work Phone: [facility] 04-12-2023 07:31-0400 Respiratory rate 16 /min Dr. Manuel Beebe Work Phone: [facility] 04-12-2023 07:31-0400 SaO2% (BldA) [Mass fraction] 100 % Dr. Manuel Beebe Work Phone: [facility] 04-12-2023 07:31-0400 Systolic blood pressure 126 mm[Hg] Dr. Manuel Beebe Work Phone: 1(940)144-685577 [place] [address] 04-12-2023 04:26-0400 Body mass index (BMI) [Ratio] 26.2 kg/m2 Dr. Manuel Beebe Work Phone: 8(759)059-093877 [place] [address] 04-12-2023 04:26-0400 Body weight 80.[address] Manuel Beebe Work Phone: 3(593)985-734630 [place] [address] 04-10-2023 18:32-0400 Body height 175.[address] Manuel Beebe Work Phone: 5(190)022-059730 [place] [address] 04-10-2023 16:35-0400 Body temperature 97.6 [degF] Dr. Manuel Beebe Work Phone: 1(238)448-837630 [place] [address] 04-10-2023 16:35-0400 Diastolic blood pressure 75 mm[Hg] Dr. Manuel Beebe Work Phone: 2(457)495-615130 [place] [address] 04-10-2023 16:35-0400 Heart rate 76 /min Dr. Manuel Beebe Work Phone: 3(786)694-572230 [place] [address] 04-10-2023 16:35-0400 Respiratory rate 24 /min Dr. Manuel Beebe Work Phone: 5(620)575-188630 [place] [address] 04-10-2023 16:35-0400 SaO2% (BldA) [Mass fraction] 98 % Dr. Manuel Beebe Work Phone: 3(431)250-589377 [place] [address] 04-10-2023 16:35-0400 Systolic blood pressure 136 mm[Hg] Dr. Manuel Beebe Work Phone: 5(338)404-340830 [place] [address] 04-10-2023 12:46-0400 Body height 175.[address] Manuel Beebe Work Phone: 4(702)711-503930 [place] [address] 04-10-2023 12:46-0400 Body mass index (BMI) [Ratio] 28.6 kg/m2 Dr. Manuel Beebe Work Phone: 0(160)314-687577 [place] [address] 04-10-2023 12:46-0400 Body weight 87.[address] Manuel Beebe Work Phone: [facility] 03-23-2023 08:11-0400 Body temperature 97.7 [degF] Manuel Beebe MD Work Phone: [facility] 03-23-2023 08:11-0400 Body weight 78.47 kg Manuel Beebe MD Work Phone: [facility] 03-23-2023 08:11-0400 Diastolic blood pressure 72 mm[Hg] Manuel Beebe MD Work Phone: [facility] 03-23-2023 08:11-0400 Heart rate 65 /min Manuel Beebe MD Work Phone: [facility] 03-23-2023 08:11-0400 Respiratory rate 18 /min Manuel Beebe MD Work Phone: [facility] 03-23-2023 08:11-0400 SaO2% (BldA) [Mass fraction] 97 % Manuel Beebe MD Work Phone: [facility] 03-23-2023 08:11-0400 Systolic blood pressure 118 mm[Hg] Manuel Beebe MD Work Phone: [facility] 03-09-2023 11:48-0400 Body height 177.8 cm Merlin Loredo MD Work Phone: [facility] 03-09-2023 11:48-0400 Body temperature 97 [degF] Merlin Loredo MD Work Phone: [facility] 03-09-2023 11:48-0400 Body weight 78.02 kg Merlin Loredo MD Work Phone: [facility] 03-09-2023 11:48-0400 Diastolic blood pressure 48 mm[Hg] Merlin Loredo MD Work Phone: [facility] 03-09-2023 11:48-0400 Heart rate 70 /min Merlin Loredo MD Work Phone: [place] [address]-03-2023 11:48-0400 SaO2% (BldA) [Mass fraction] 98 % Merlin Loredo MD Work Phone: [facility] 03-09-2023 11:48-0400 Systolic blood pressure 119 mm[Hg] Merlin Loredo MD Work Phone: [facility] 01-06-2023 13:45-0500 Body height 175.[address] Manuel Beebe Work Phone: [facility] 01-06-2023 13:45-0500 Body mass index (BMI) [Ratio] 25.2 kg/m2 Dr. Manuel Beebe Work Phone: [facility] 01-06-2023 13:45-0500 Body temperature 97.1 [degF] Dr. Manuel Beebe Work Phone: 3(577)391-052577 [place] [address] 01-06-2023 13:45-0500 Body weight 77.[address] Manuel Beebe Work Phone: [facility] 01-06-2023 13:45-0500 Diastolic blood pressure 70 mm[Hg] Dr. Manuel Beebe Work Phone: [facility] 01-06-2023 13:45-0500 Heart rate 70 /min Dr. Manuel Beebe Work Phone: [facility] 01-06-2023 13:45-0500 Respiratory rate 16 /min Dr. Manuel Beebe Work Phone: [facility] 01-06-2023 13:45-0500 SaO2% (BldA) [Mass fraction] 93 % Dr. Manuel Beebe Work Phone: [facility] 01-06-2023 13:45-0500 Systolic blood pressure 105 mm[Hg] Dr. Manuel Beebe Work Phone: [facility] 12-23-2022 14:17-0500 Body mass index (BMI) [Ratio] 25.5 kg/m2 Dr. Manuel Beebe Work Phone: 2(720)726-271077 [place] [address] 12-23-2022 14:17-0500 Body temperature 97.8 [degF] Dr. Manuel Beebe Work Phone: 6(562)665-832877 [place] [address] 12-23-2022 14:17-0500 Body weight 78.[address] Manuel Beebe Work Phone: 7(593)092-527030 [place] [address] 12-23-2022 14:17-0500 Diastolic blood pressure 60 mm[Hg] Dr. Manuel Beebe Work Phone: 1(813)403-873530 [place] [address] 12-23-2022 14:17-0500 Heart rate 71 /min Dr. Manuel Beebe Work Phone: 7(239)277-742730 [place] [address] 12-23-2022 14:17-0500 Respiratory rate 16 /min Dr. Manuel Beebe Work Phone: 4(015)745-815730 [place] [address] 12-23-2022 14:17-0500 SaO2% (BldA) [Mass fraction] 97 % Dr. Manuel Beebe Work Phone: 6(389)663-928230 [place] [address] 12-23-2022 14:17-0500 Systolic blood pressure 96 mm[Hg] Dr. Manuel Beebe Work Phone: 3(761)449-995530 [place] [address] 09-09-2022 11:09-0400 Body height 175.[address] Manuel Beebe Work Phone: 2(501)705-024777 [place] [address] 09-09-2022 11:09-0400 Body mass index (BMI) [Ratio] 25.7 kg/m2 Dr. Manuel Beebe Work Phone: 1(495)203-645677 [place] [address] 09-09-2022 11:09-0400 Body weight 78.[address] Manuel Beebe Work Phone: 5(941)974-120877 [place] [address] 09-09-2022 11:09-0400 Diastolic blood pressure 68 mm[Hg] Dr. Manuel Beebe Work Phone: 7(234)408-233977 [place] [address] 09-09-2022 11:09-0400 Heart rate 70 /min Dr. Manuel Beebe Work Phone: [facility] 09-09-2022 11:09-0400 Respiratory rate 18 /min Dr. Manuel Beebe Work Phone: [facility] 09-09-2022 11:09-0400 SaO2% (BldA) [Mass fraction] 98 % Dr. Manuel Beebe Work Phone: [facility] 09-09-2022 11:09-0400 Systolic blood pressure 106 mm[Hg] Dr. Manuel Beebe Work Phone: [facility] 09-02-2022 11:18-0400 Body height 175.3 cm Merlin Loredo MD Work Phone: [facility] 09-02-2022 11:18-0400 Body temperature 97.7 [degF] Merlin Loredo MD Work Phone: [facility] 09-02-2022 11:18-0400 Body weight 77.56 kg Merlin Loredo MD Work Phone: [facility] 09-02-2022 11:18-0400 Diastolic blood pressure 73 mm[Hg] Merlin Loredo MD Work Phone: [facility] 09-02-2022 11:18-0400 Heart rate 70 /min Merlin Loredo MD Work Phone: [facility] 09-02-2022 11:18-0400 SaO2% (BldA) [Mass fraction] 99 % Merlin Loredo MD Work Phone: [facility] 09-02-2022 11:18-0400 Systolic blood pressure 116 mm[Hg] Merlin Loredo MD Work Phone: [facility] 08-09-2022 14:56-0400 Body height 175.[address] Manuel Beebe Work Phone: [facility] Work Phone: 08-09-2022 14:56-0400 Body temperature 98 [degF] Dr. Manuel Beebe Work Phone: [facility] 08-09-2022 14:56-0400 Diastolic blood pressure 54 mm[Hg] Dr. Manuel Beebe Work Phone: [facility] 08-09-2022 14:56-0400 Heart rate 70 /min Dr. Manuel Beebe Work Phone: [facility] 08-09-2022 14:56-0400 Respiratory rate 16 /min Dr. Manuel Beebe Work Phone: 3(308)471-433930 [place] [address] 08-09-2022 14:56-0400 SaO2% (BldA) [Mass fraction] 98 % Dr. Manuel Beebe Work Phone: [phone] [place] [address] 08-09-2022 14:56-0400 Systolic blood pressure 128 mm[Hg] Dr. Manuel Beebe Work Phone: 7(765)[phone] [place] [address] 07-21-2022 13:33-0400 Body height 175.[address] Manuel Beebe Work Phone: 9(940)[phone] [place] [address] Work Phone: 07-21-2022 13:33-0400 Body mass index (BMI) [Ratio] 25.7 kg/m2 Dr. Manuel Beebe Work Phone: [facility] Work Phone: 07-21-2022 13:33-0400 Body temperature 97.3 [degF] Dr. Manuel Beebe Work Phone: [facility] Work Phone: 07-21-2022 13:33-0400 Body weight 78.[address] Manuel Beebe Work Phone: [facility] Work Phone: 07-21-2022 13:33-0400 Diastolic blood pressure 63 mm[Hg] Dr. Manuel Beebe Work Phone: [facility] Work Phone: 07-21-2022 13:33-0400 Heart rate 70 /min Dr. Manuel Beebe Work Phone: [facility] Work Phone: 07-21-2022 13:33-0400 Respiratory rate 16 /min Dr. Manuel Beebe Work Phone: [facility] Work Phone: 07-21-2022 13:33-0400 SaO2% (BldA) [Mass fraction] 98 % Dr. Manuel Beebe Work Phone: [facility] Work Phone: 07-21-2022 13:33-0400 Systolic blood pressure 93 mm[Hg] Dr. Manuel Beebe Work Phone: [facility] Work Phone: 06-15-2022 16:04-0400 Body height 175.3 cm Munira Dickerson MD Work Phone: [facility] 06-15-2022 16:04-0400 Body mass index (BMI) [Ratio] 25.84 kg/m2 Munira Dickerson MD Work Phone: [facility] 06-15-2022 16:04-0400 Body weight 79.38 kg Munira Dickerson MD Work Phone: [facility] 06-07-2022 18:45-0400 Diastolic blood pressure 65 mm[Hg] Dr. Manuel Beebe Work Phone: [facility] Work Phone: 06-07-2022 18:45-0400 Heart rate 70 /min Dr. Manuel Beebe Work Phone: [facility] Work Phone: 06-07-2022 18:45-0400 Respiratory rate 15 /min Dr. Manuel Beebe Work Phone: [facility] Work Phone: 06-07-2022 18:45-0400 SaO2% (BldA) [Mass fraction] 100 % Dr. Manuel Beebe Work Phone: [facility] Work Phone: 06-07-2022 18:45-0400 Systolic blood pressure 111 mm[Hg] Dr. Manuel Beebe Work Phone: [facility] Work Phone: 06-07-2022 13:38-0400 Body height 175.[address] Manuel Beebe Work Phone: [facility] Work Phone: 06-07-2022 13:38-0400 Body mass index (BMI) [Ratio] 26.6 kg/m2 Dr. Manuel Beebe Work Phone: [facility] Work Phone: 06-07-2022 13:38-0400 Body temperature 98.5 [degF] Dr. Manuel Beebe Work Phone: [facility] Work Phone: 06-07-2022 13:38-0400 Body weight 81.[address] Manuel Beebe Work Phone: [facility] Work Phone: 05-24-2022 14:11-0400 Body height 175.[address] Manuel Beebe Work Phone: [facility] Work Phone: 05-24-2022 14:11-0400 Body temperature 97.8 [degF] Dr. Manuel Beebe Work Phone: [facility] Work Phone: 05-24-2022 14:11-0400 Diastolic blood pressure 82 mm[Hg] Dr. Manuel Beebe Work Phone: [facility] Work Phone: 05-24-2022 14:11-0400 Heart rate 70 /min Dr. Manuel Beebe Work Phone: [facility] Work Phone: 05-24-2022 14:11-0400 Respiratory rate 16 /min Dr. Manuel Beebe Work Phone: [facility] Work Phone: 05-24-2022 14:11-0400 SaO2% (BldA) [Mass fraction] 98 % Dr. Manuel Beebe Work Phone: [facility] Work Phone: 05-24-2022 14:11-0400 Systolic blood pressure 117 mm[Hg] Dr. Manuel Beebe Work Phone: [facility] Work Phone: 04-30-2022 05:11-0400 Diastolic blood pressure 70 mm[Hg] Dr. Manuel Beebe Work Phone: [facility] Work Phone: 04-30-2022 05:11-0400 Heart rate 72 /min Dr. Manuel Beebe Work Phone: [facility] Work Phone: 04-30-2022 05:11-0400 Respiratory rate 22 /min Dr. Manuel Beebe Work Phone: [facility] Work Phone: 04-30-2022 05:11-0400 SaO2% (BldA) [Mass fraction] 100 % Dr. Manuel Beebe Work Phone: [facility] Work Phone: 04-30-2022 05:11-0400 Systolic blood pressure 136 mm[Hg] Dr. Manuel Beebe Work Phone: [facility] Work Phone: 04-30-2022 02:21-0400 Body height 175.[address] Manuel Beebe Work Phone: [facility] Work Phone: 04-30-2022 02:21-0400 Body mass index (BMI) [Ratio] 27.7 kg/m2 Dr. Manuel Beebe Work Phone: [facility] Work Phone: 04-30-2022 02:21-0400 Body temperature 97.6 [degF] Dr. Manuel Beebe Work Phone: [facility] Work Phone: 04-30-2022 02:21-0400 Body weight 85.[address] Manuel Beebe Work Phone: [facility] Work Phone: 04-27-2022 12:13-0400 Heart rate 72 /min Dr. Manuel Beebe Work Phone: [facility] Work Phone: 04-27-2022 11:20-0400 Body temperature 97.6 [degF] Dr. Manuel Beebe Work Phone: [facility] Work Phone: 04-27-2022 11:20-0400 Diastolic blood pressure 98 mm[Hg] Dr. Manuel Beebe Work Phone: [facility] Work Phone: 04-27-2022 11:20-0400 Respiratory rate 16 /min Dr. Manuel Beebe Work Phone: [facility] Work Phone: 04-27-2022 11:20-0400 SaO2% (BldA) [Mass fraction] 99 % Dr. Manuel Beebe Work Phone: [facility] Work Phone: 04-27-2022 11:20-0400 Systolic blood pressure 132 mm[Hg] Dr. Manuel Beebe Work Phone: [facility] Work Phone: 04-27-2022 07:43-0400 Inhaled oxygen flow rate 1 L/min Dr. Manuel Beebe Work Phone: [facility] Work Phone: 04-27-2022 06:00-0400 Body weight 82.[address] Manuel Beebe Work Phone: [facility] Work Phone: 04-25-2022 20:30-0400 Body height 175.[address] Manuel Beebe Work Phone: [facility] Work Phone: 04-25-2022 20:30-0400 Body mass index (BMI) [Ratio] 27.2 kg/m2 Dr. Manuel Beebe Work Phone: [facility] Work Phone: 04-14-2022 09:10-0400 Body temperature 97.1 [degF] Dr. Manuel Beebe Work Phone: [facility] Work Phone: 04-14-2022 09:10-0400 Diastolic blood pressure 74 mm[Hg] Dr. Manuel Beebe Work Phone: [facility] Work Phone: 04-14-2022 09:10-0400 Heart rate 70 /min Dr. Manuel Beebe Work Phone: [facility] Work Phone: 04-14-2022 09:10-0400 Respiratory rate 18 /min Dr. Manuel Beebe Work Phone: [facility] Work Phone: 04-14-2022 09:10-0400 SaO2% (BldA) [Mass fraction] 97 % Dr. Manuel Beebe Work Phone: [facility] Work Phone: 04-14-2022 09:10-0400 Systolic blood pressure 129 mm[Hg] Dr. Manuel Beebe Work Phone: [facility] Work Phone: 04-13-2022 14:11-0400 Body weight 83.[address] Manuel Beebe Work Phone: [facility] Work Phone: 04-13-2022 13:35-0400 Inhaled oxygen flow rate 3 L/min Dr. Manuel Beebe Work Phone: [facility] Work Phone: 04-13-2022 13:08-0400 Body temperature 98.4 [degF] Dr. Manuel Beebe Work Phone: [facility] Work Phone: 04-13-2022 13:08-0400 Body weight 83.[address] Manuel Beebe Work Phone: [facility] Work Phone: 04-13-2022 13:08-0400 Diastolic blood pressure 79 mm[Hg] Dr. Manuel Beebe Work Phone: [facility] Work Phone: 04-13-2022 13:08-0400 Heart rate 70 /min Dr. Manuel Beebe Work Phone: [facility] Work Phone: 04-13-2022 13:08-0400 Respiratory rate 18 /min Dr. Manuel Beebe Work Phone: [facility] Work Phone: 04-13-2022 13:08-0400 SaO2% (BldA) [Mass fraction] 99 % Dr. Manuel Beebe Work Phone: [facility] Work Phone: 04-13-2022 13:08-0400 Systolic blood pressure 117 mm[Hg] Dr. Manuel Beebe Work Phone: [facility] Work Phone: 04-13-2022 13:08-0400 Body temperature 98.4 [degF] Dr. Manuel Beebe Work Phone: [facility] Work Phone: 04-13-2022 13:08-0400 Body weight 83.[address] Manuel Beebe Work Phone: [facility] Work Phone: 04-13-2022 13:08-0400 Diastolic blood pressure 79 mm[Hg] Dr. Manuel Beebe Work Phone: [facility] Work Phone: 04-13-2022 13:08-0400 Heart rate 70 /min Dr. Manuel Beebe Work Phone: [facility] Work Phone: 04-13-2022 13:08-0400 Respiratory rate 18 /min Dr. Manuel Beebe Work Phone: [facility] Work Phone: 04-13-2022 13:08-0400 SaO2% (BldA) [Mass fraction] 99 % Dr. Manuel Beebe Work Phone: [facility] Work Phone: 04-13-2022 13:08-0400 Systolic blood pressure 117 mm[Hg] Dr. Manuel Beebe Work Phone: [facility] Work Phone: 04-12-2022 11:12-0400 Body temperature 96.6 [degF] Dr. Manuel Beebe Work Phone: [facility] Work Phone: 04-12-2022 11:12-0400 Heart rate 70 /min Dr. Manuel Beebe Work Phone: [facility] Work Phone: 04-12-2022 11:12-0400 Respiratory rate 20 /min Dr. Manuel Beebe Work Phone: [facility] Work Phone: 04-12-2022 11:12-0400 SaO2% (BldA) [Mass fraction] 97 % Dr. Manuel Beebe Work Phone: [facility] Work Phone: 04-12-2022 10:46-0400 Diastolic blood pressure 87 mm[Hg] Dr. Manuel Beebe Work Phone: [facility] Work Phone: 04-12-2022 10:46-0400 Systolic blood pressure 122 mm[Hg] Dr. Manuel Beebe Work Phone: [facility] Work Phone: 04-07-2022 13:40-0400 Body height 175.[address] Manuel Beebe Work Phone: [facility] Work Phone: 04-07-2022 13:40-0400 Body weight 81.[address] Manuel Beebe Work Phone: [facility] Work Phone: 03-31-2022 12:40-0400 Body temperature 97.2 [degF] Dr. Manuel Beebe Work Phone: [facility] Work Phone: 03-31-2022 12:40-0400 Diastolic blood pressure 82 mm[Hg] Dr. Manuel Beebe Work Phone: [facility] Work Phone: 03-31-2022 12:40-0400 Heart rate 79 /min Dr. Manuel Beebe Work Phone: [facility] Work Phone: 03-31-2022 12:40-0400 Respiratory rate 18 /min Dr. Manuel Beebe Work Phone: [facility] Work Phone: 03-31-2022 12:40-0400 SaO2% (BldA) [Mass fraction] 98 % Dr. Manuel Beebe Work Phone: [facility] Work Phone: 03-31-2022 12:40-0400 Systolic blood pressure 122 mm[Hg] Dr. Manuel Beebe Work Phone: [facility] Work Phone: 03-31-2022 08:37-0400 Body mass index (BMI) [Ratio] 25.7 kg/m2 Dr. Manuel Beebe Work Phone: [facility] Work Phone: 03-31-2022 08:37-0400 Body weight 78.[address] Manuel Beebe Work Phone: [facility] Work Phone: 03-23-2022 14:02-0400 Body height 175.3 cm Munira Dickerson MD Work Phone: [facility] 03-23-2022 14:02-0400 Body mass index (BMI) [Ratio] 24.22 kg/m2 Munira Dickerson MD Work Phone: [facility] 03-23-2022 14:02-0400 Body weight 74.39 kg Munira Dickerson MD Work Phone: [facility] 03-17-2022 11:19-0400 Body mass index (BMI) [Ratio] 24.8 kg/m2 Dr. Manuel Beebe Work Phone: [facility] Work Phone: 03-17-2022 11:19-0400 Body temperature 98.2 [degF] Dr. Manuel Beebe Work Phone: [facility] Work Phone: 03-17-2022 11:19-0400 Body weight 76.[address] Manuel Beebe Work Phone: [facility] Work Phone: 03-17-2022 11:19-0400 Diastolic blood pressure 59 mm[Hg] Dr. Manuel Beebe Work Phone: [facility] Work Phone: 03-17-2022 11:19-0400 Heart rate 70 /min Dr. Manuel Beebe Work Phone: [facility] Work Phone: 03-17-2022 11:19-0400 Respiratory rate 16 /min Dr. Manuel Beebe Work Phone: [facility] Work Phone: 03-17-2022 11:19-0400 SaO2% (BldA) [Mass fraction] 99 % Dr. Manuel Beebe Work Phone: [facility] Work Phone: 03-17-2022 11:19-0400 Systolic blood pressure 88 mm[Hg] Dr. Manuel Beebe Work Phone: [facility] Work Phone: 03-17-2022 11:19-0400 Body mass index (BMI) [Ratio] 24.8 kg/m2 Dr. Manuel Beebe Work Phone: [facility] Work Phone: 03-17-2022 11:19-0400 Body temperature 98.2 [degF] Dr. Manuel Beebe Work Phone: [facility] Work Phone: 03-17-2022 11:19-0400 Body weight 76.[address] Manuel Beebe Work Phone: [facility] Work Phone: 03-17-2022 11:19-0400 Diastolic blood pressure 59 mm[Hg] Dr. Manuel Beebe Work Phone: [facility] Work Phone: 03-17-2022 11:19-0400 Heart rate 70 /min Dr. Manuel Beebe Work Phone: [facility] Work Phone: 03-17-2022 11:19-0400 Respiratory rate 16 /min Dr. Manuel Beebe Work Phone: [facility] Work Phone: 03-17-2022 11:19-0400 SaO2% (BldA) [Mass fraction] 99 % Dr. Manuel Beebe Work Phone: [facility] Work Phone: 03-17-2022 11:19-0400 Systolic blood pressure 88 mm[Hg] Dr. Manuel Beebe Work Phone: [facility] Work Phone: 03-10-2022 11:12-0400 Body mass index (BMI) [Ratio] 24.6 kg/m2 Dr. Manuel Beebe Work Phone: [facility] Work Phone: 03-10-2022 11:12-0400 Body temperature 96.8 [degF] Dr. Manuel Beebe Work Phone: [facility] Work Phone: 03-10-2022 11:12-0400 Body weight 75.[address] Manuel Beebe Work Phone: [facility] Work Phone: 03-10-2022 11:12-0400 Diastolic blood pressure 53 mm[Hg] Dr. Manuel Beebe Work Phone: [facility] Work Phone: 03-10-2022 11:12-0400 Heart rate 70 /min Dr. Manuel Beebe Work Phone: [facility] Work Phone: 03-10-2022 11:12-0400 Respiratory rate 14 /min Dr. Manuel Beebe Work Phone: [facility] Work Phone: 03-10-2022 11:12-0400 SaO2% (BldA) [Mass fraction] 100 % Dr. Manuel Beebe Work Phone: [facility] Work Phone: 03-10-2022 11:12-0400 Systolic blood pressure 72 mm[Hg] Dr. Manuel Beebe Work Phone: [facility] Work Phone: 03-10-2022 11:12-0400 Body mass index (BMI) [Ratio] 24.6 kg/m2 Dr. Manuel Beebe Work Phone: [facility] Work Phone: 03-10-2022 11:12-0400 Body temperature 96.8 [degF] Dr. Manuel Beebe Work Phone: [facility] Work Phone: 03-10-2022 11:12-0400 Body weight 75.[address] Manuel Beebe Work Phone: [facility] Work Phone: 03-10-2022 11:12-0400 Diastolic blood pressure 53 mm[Hg] Dr. Manuel Beebe Work Phone: [facility] Work Phone: 03-10-2022 11:12-0400 Heart rate 70 /min Dr. Manuel Beebe Work Phone: [facility] Work Phone: 03-10-2022 11:12-0400 Respiratory rate 14 /min Dr. Manuel Beebe Work Phone: [facility] Work Phone: 03-10-2022 11:12-0400 SaO2% (BldA) [Mass fraction] 100 % Dr. Manuel Beebe Work Phone: [facility] Work Phone: 03-10-2022 11:12-0400 Systolic blood pressure 72 mm[Hg] Dr. Manuel Beebe Work Phone: [facility] Work Phone: 03-03-2022 11:06-0400 Body temperature 98.2 [degF] Dr. Manuel Beebe Work Phone: [facility] Work Phone: 03-03-2022 11:06-0400 Diastolic blood pressure 61 mm[Hg] Dr. Manuel Beebe Work Phone: [facility] Work Phone: 03-03-2022 11:06-0400 Heart rate 69 /min Dr. Manuel Beebe Work Phone: [facility] Work Phone: 03-03-2022 11:06-0400 Respiratory rate 14 /min Dr. Manuel Beebe Work Phone: [facility] Work Phone: 03-03-2022 11:06-0400 SaO2% (BldA) [Mass fraction] 100 % Dr. Manuel Beebe Work Phone: [facility] Work Phone: 03-03-2022 11:06-0400 Systolic blood pressure 95 mm[Hg] Dr. Manuel Beebe Work Phone: [facility] Work Phone: 03-03-2022 11:06-0400 Body temperature 98.2 [degF] Dr. Manuel Beebe Work Phone: [facility] Work Phone: 03-03-2022 11:06-0400 Diastolic blood pressure 61 mm[Hg] Dr. Manuel Beebe Work Phone: [facility] Work Phone: 03-03-2022 11:06-0400 Heart rate 69 /min Dr. Manuel Beebe Work Phone: [facility] Work Phone: 03-03-2022 11:06-0400 Respiratory rate 14 /min Dr. Manuel Beebe Work Phone: [facility] Work Phone: 03-03-2022 11:06-0400 SaO2% (BldA) [Mass fraction] 100 % Dr. Manuel Beebe Work Phone: [facility] Work Phone: 03-03-2022 11:06-0400 Systolic blood pressure 95 mm[Hg] Dr. Manuel Beebe Work Phone: [facility] Work Phone: 02-24-2022 13:27-0400 Body temperature 97.2 [degF] Dr. Manuel Beebe Work Phone: [facility] Work Phone: 02-24-2022 13:27-0400 Diastolic blood pressure 58 mm[Hg] Dr. Manuel Beebe Work Phone: [facility] Work Phone: 02-24-2022 13:27-0400 Heart rate 70 /min Dr. Manuel Beebe Work Phone: [facility] Work Phone: 02-24-2022 13:27-0400 Respiratory rate 14 /min Dr. Manuel Beebe Work Phone: [facility] Work Phone: 02-24-2022 13:27-0400 SaO2% (BldA) [Mass fraction] 97 % Dr. Manuel Beebe Work Phone: [facility] Work Phone: 02-24-2022 13:27-0400 Systolic blood pressure 88 mm[Hg] Dr. Manuel Beebe Work Phone: [facility] Work Phone: 02-24-2022 13:27-0400 Body temperature 97.2 [degF] Dr. Manuel Beebe Work Phone: [facility] Work Phone: 02-24-2022 13:27-0400 Diastolic blood pressure 58 mm[Hg] Dr. Manuel Beebe Work Phone: [facility] Work Phone: 02-24-2022 13:27-0400 Heart rate 70 /min Dr. Manuel Beebe Work Phone: [facility] Work Phone: 02-24-2022 13:27-0400 Respiratory rate 14 /min Dr. Manuel Beebe Work Phone: [facility] Work Phone: 02-24-2022 13:27-0400 SaO2% (BldA) [Mass fraction] 97 % Dr. Manuel Beebe Work Phone: [facility] Work Phone: 02-24-2022 13:27-0400 Systolic blood pressure 88 mm[Hg] Dr. Manuel Beebe Work Phone: [facility] Work Phone: 02-19-2022 11:41-0400 Body mass index (BMI) [Ratio] 27.2 kg/m2 Dr. Manuel Beebe Work Phone: [facility] Work Phone: 02-10-2022 14:22-0400 Diastolic blood pressure 78 mm[Hg] Dr. Manuel Beebe Work Phone: [facility] Work Phone: 02-10-2022 14:22-0400 Heart rate 81 /min Dr. Manuel Beebe Work Phone: [facility] Work Phone: 02-10-2022 14:22-0400 Respiratory rate 16 /min Dr. Manuel Beebe Work Phone: [facility] Work Phone: 02-10-2022 14:22-0400 SaO2% (BldA) [Mass fraction] 100 % Dr. Manuel Beebe Work Phone: [facility] Work Phone: 02-10-2022 14:22-0400 Systolic blood pressure 114 mm[Hg] Dr. Manuel Beebe Work Phone: [facility] Work Phone: 02-10-2022 13:00-0400 Inhaled oxygen flow rate 4 L/min Dr. Manuel Beebe Work Phone: [facility] Work Phone: 02-10-2022 03:20-0400 Body height 175.[address] Manuel Beebe Work Phone: [facility] Work Phone: 02-10-2022 03:20-0400 Body mass index (BMI) [Ratio] 23.9 kg/m2 Dr. Manuel Beebe Work Phone: [facility] Work Phone: 02-10-2022 03:20-0400 Body temperature 97.5 [degF] Dr. Manuel Beebe Work Phone: [facility] Work Phone: 02-10-2022 03:20-0400 Body weight 73.[address] Manuel Beebe Work Phone: [facility] Work Phone: 02-03-2022 10:58-0400 Body temperature 98.4 [degF] Dr. Manuel Beebe Work Phone: [facility] Work Phone: 02-03-2022 10:58-0400 Body weight 73.[address] Manuel Beebe Work Phone: [facility] Work Phone: 02-03-2022 10:58-0400 Diastolic blood pressure 76 mm[Hg] Dr. Manuel Beebe Work Phone: [facility] Work Phone: 02-03-2022 10:58-0400 Heart rate 70 /min Dr. Manuel Beebe Work Phone: [facility] Work Phone: 02-03-2022 10:58-0400 Respiratory rate 14 /min Dr. Manuel Beebe Work Phone: [facility] Work Phone: 02-03-2022 10:58-0400 SaO2% (BldA) [Mass fraction] 100 % Dr. Manuel Beebe Work Phone: [facility] Work Phone: 02-03-2022 10:58-0400 Systolic blood pressure 115 mm[Hg] Dr. Manuel Beebe Work Phone: [facility] Work Phone: 02-03-2022 10:58-0400 Body temperature 98.4 [degF] Dr. Manuel Beebe Work Phone: [facility] Work Phone: 02-03-2022 10:58-0400 Body weight 73.[address] Manuel Beebe Work Phone: [facility] Work Phone: 02-03-2022 10:58-0400 Diastolic blood pressure 76 mm[Hg] Dr. Manuel Beebe Work Phone: [facility] Work Phone: 02-03-2022 10:58-0400 Heart rate 70 /min Dr. Manuel Beebe Work Phone: [facility] Work Phone: 02-03-2022 10:58-0400 Respiratory rate 14 /min Dr. Manuel Beebe Work Phone: [facility] Work Phone: 02-03-2022 10:58-0400 SaO2% (BldA) [Mass fraction] 100 % Dr. Manuel Beebe Work Phone: [facility] Work Phone: 02-03-2022 10:58-0400 Systolic blood pressure 115 mm[Hg] Dr. Manuel Beebe Work Phone: [facility] Work Phone: 01-27-2022 11:46-0400 Body temperature 98.4 [degF] Dr. Manuel Beebe Work Phone: [facility] Work Phone: 01-27-2022 11:46-0400 Body weight 72.[address] Manuel Beebe Work Phone: [facility] Work Phone: 01-27-2022 11:46-0400 Diastolic blood pressure 85 mm[Hg] Dr. Manuel Beebe Work Phone: [facility] Work Phone: 01-27-2022 11:46-0400 Heart rate 70 /min Dr. Manuel Beebe Work Phone: [facility] Work Phone: 01-27-2022 11:46-0400 Respiratory rate 14 /min Dr. Manuel Beebe Work Phone: [facility] Work Phone: 01-27-2022 11:46-0400 SaO2% (BldA) [Mass fraction] 97 % Dr. Manuel Beebe Work Phone: [facility] Work Phone: 01-27-2022 11:46-0400 Systolic blood pressure 138 mm[Hg] Dr. Manuel Beebe Work Phone: [facility] Work Phone: 01-27-2022 11:46-0400 Body temperature 98.4 [degF] Dr. Manuel Beebe Work Phone: [facility] Work Phone: 01-27-2022 11:46-0400 Body weight 72.[address] Manuel Beebe Work Phone: [facility] Work Phone: 01-27-2022 11:46-0400 Diastolic blood pressure 85 mm[Hg] Dr. Manuel Beebe Work Phone: [facility] Work Phone: 01-27-2022 11:46-0400 Heart rate 70 /min Dr. Manuel Beebe Work Phone: [facility] Work Phone: 01-27-2022 11:46-0400 Respiratory rate 14 /min Dr. Manuel Beebe Work Phone: [facility] Work Phone: 01-27-2022 11:46-0400 SaO2% (BldA) [Mass fraction] 97 % Dr. Manuel Beebe Work Phone: [facility] Work Phone: 01-27-2022 11:46-0400 Systolic blood pressure 138 mm[Hg] Dr. Manuel Beebe Work Phone: [facility] Work Phone: 01-26-2022 08:35-0400 Body weight 70.[address] Manuel Beebe Work Phone: [facility] Work Phone: 01-26-2022 08:35-0400 Diastolic blood pressure 69 mm[Hg] Dr. Manuel Beebe Work Phone: [facility] Work Phone: 01-26-2022 08:35-0400 Heart rate 66 /min Dr. Manuel Beebe Work Phone: [facility] Work Phone: 01-26-2022 08:35-0400 Respiratory rate 16 /min Dr. Manuel Beebe Work Phone: [facility] Work Phone: 01-26-2022 08:35-0400 SaO2% (BldA) [Mass fraction] 100 % Dr. Manuel Beebe Work Phone: [facility] Work Phone: 01-26-2022 08:35-0400 Systolic blood pressure 112 mm[Hg] Dr. Manuel Beebe Work Phone: [facility] Work Phone: 01-26-2022 08:35-0400 Body weight 70.[address] Manuel Beebe Work Phone: [facility] Work Phone: 01-26-2022 08:35-0400 Diastolic blood pressure 69 mm[Hg] Dr. Manuel Beebe Work Phone: [facility] Work Phone: 01-26-2022 08:35-0400 Heart rate 66 /min Dr. Manuel Beebe Work Phone: [facility] Work Phone: 01-26-2022 08:35-0400 Respiratory rate 16 /min Dr. Manuel Beebe Work Phone: [facility] Work Phone: 01-26-2022 08:35-0400 SaO2% (BldA) [Mass fraction] 100 % Dr. Manuel Beebe Work Phone: [facility] Work Phone: 01-26-2022 08:35-0400 Systolic blood pressure 112 mm[Hg] Dr. Manuel Beebe Work Phone: [facility] Work Phone: 01-14-2022 13:15-0500 Diastolic blood pressure 69 mm[Hg] Dr. Manuel Beebe Work Phone: [facility] Work Phone: 01-14-2022 13:15-0500 Heart rate 90 /min Dr. Manuel Beebe Work Phone: [facility] Work Phone: 01-14-2022 13:15-0500 Respiratory rate 18 /min Dr. Manuel Beebe Work Phone: [facility] Work Phone: 01-14-2022 13:15-0500 SaO2% (BldA) [Mass fraction] 96 % Dr. Manuel Beebe Work Phone: [facility] Work Phone: 01-14-2022 13:15-0500 Systolic blood pressure 112 mm[Hg] Dr. Manuel Beebe Work Phone: [facility] Work Phone: 01-14-2022 12:15-0500 Diastolic blood pressure 69 mm[Hg] Dr. Manuel Beebe Work Phone: [facility] Work Phone: 01-14-2022 12:15-0500 Heart rate 90 /min Dr. Manuel Beebe Work Phone: [facility] Work Phone: 01-14-2022 12:15-0500 Respiratory rate 18 /min Dr. Manuel Beebe Work Phone: [facility] Work Phone: 01-14-2022 12:15-0500 SaO2% (BldA) [Mass fraction] 96 % Dr. Manuel Beebe Work Phone: [facility] Work Phone: 01-14-2022 12:15-0500 Systolic blood pressure 112 mm[Hg] Dr. Manuel Beebe Work Phone: [facility] Work Phone: 01-06-2022 09:48-0500 Body temperature 96.9 [degF] Dr. Manuel Beebe Work Phone: [facility] Work Phone: 01-06-2022 09:48-0500 Diastolic blood pressure 74 mm[Hg] Dr. Manuel Beebe Work Phone: [facility] Work Phone: 01-06-2022 09:48-0500 Heart rate 70 /min Dr. Manuel Beebe Work Phone: [facility] Work Phone: 01-06-2022 09:48-0500 Respiratory rate 16 /min Dr. Manuel Beebe Work Phone: [facility] Work Phone: 01-06-2022 09:48-0500 SaO2% (BldA) [Mass fraction] 97 % Dr. Manuel Beebe Work Phone: [facility] Work Phone: 01-06-2022 09:48-0500 Systolic blood pressure 108 mm[Hg] Dr. Manuel Beebe Work Phone: [facility] Work Phone: 01-06-2022 08:48-0500 Body temperature 96.9 [degF] Dr. Manuel Beebe Work Phone: [facility] Work Phone: 01-06-2022 08:48-0500 Diastolic blood pressure 74 mm[Hg] Dr. Manuel Beebe Work Phone: [facility] Work Phone: 01-06-2022 08:48-0500 Heart rate 70 /min Dr. Manuel Beebe Work Phone: [facility] Work Phone: 01-06-2022 08:48-0500 Respiratory rate 16 /min Dr. Manuel Beebe Work Phone: [facility] Work Phone: 01-06-2022 08:48-0500 SaO2% (BldA) [Mass fraction] 97 % Dr. Manuel Beebe Work Phone: [facility] Work Phone: 01-06-2022 08:48-0500 Systolic blood pressure 108 mm[Hg] Dr. Manuel Beebe Work Phone: [facility] Work Phone: 01-06-2022 06:26-0500 Body mass index (BMI) [Ratio] 25 kg/m2 Dr. Manuel Beebe Work Phone: [facility] Work Phone: 01-06-2022 06:26-0500 Body weight [address] Manuel Beebe Work Phone: [facility] Work Phone: 01-06-2022 05:26-0500 Body mass index (BMI) [Ratio] 25 kg/m2 Dr. Manuel Beebe Work Phone: [facility] Work Phone: 01-06-2022 05:26-05[address] Body weight [address] Manuel Beebe Work Phone: [facility] Work Phone: 12-10-2021 10:06-0500 Body mass index (BMI) [Ratio] 25.1 kg/m2 Dr. Manuel Beebe Work Phone: [facility] Work Phone: 12-10-2021 10:06-0500 Body weight 77.[address] Manuel Beebe Work Phone: [facility] Work Phone: 12-10-2021 10:06-0500 Diastolic blood pressure 72 mm[Hg] Dr. Manuel Beebe Work Phone: [facility] Work Phone: 12-10-2021 10:06-0500 Heart rate 70 /min Dr. Manuel Beebe Work Phone: [facility] Work Phone: 12-10-2021 10:06-0500 Respiratory rate 17 /min Dr. Manuel Beebe Work Phone: [facility] Work Phone: 12-10-2021 10:06-0500 SaO2% (BldA) [Mass fraction] 94 % Dr. Manuel Beebe Work Phone: [facility] Work Phone: 12-10-2021 10:06-0500 Systolic blood pressure 103 mm[Hg] Dr. Manuel Beebe Work Phone: [facility] Work Phone: 12-10-2021 09:23-0500 Body mass index (BMI) [Ratio] 22.7 kg/m2 Dr. Manuel Beebe Work Phone: [facility] Work Phone: 12-10-2021 09:23-0500 Body temperature 97.3 [degF] Dr. Manuel Beebe Work Phone: [facility] Work Phone: 12-10-2021 09:23-0500 Body weight 69.[address] Manuel Beebe Work Phone: [facility] Work Phone: 12-10-2021 09:23-0500 Diastolic blood pressure 72 mm[Hg] Dr. Manuel Beebe Work Phone: [facility] Work Phone: 12-10-2021 09:23-0500 Heart rate 70 /min Dr. Manuel Beebe Work Phone: [facility] Work Phone: 12-10-2021 09:23-0500 Respiratory rate 17 /min Dr. Manuel Beebe Work Phone: [facility] Work Phone: 12-10-2021 09:23-0500 SaO2% (BldA) [Mass fraction] 94 % Dr. Manuel Beebe Work Phone: [facility] Work Phone: 12-10-2021 09:23-0500 Systolic blood pressure 103 mm[Hg] Dr. Manuel Beebe Work Phone: [facility] Work Phone: 05-08-2021 08:49-0400 Body mass index (BMI) [Ratio] 21.7 kg/m2 Dr. Manuel Beebe Work Phone: [facility] Work Phone: 05-08-2021 08:49-0400 Body mass index (BMI) [Ratio] 21.7 kg/m2 Dr. Manuel Beebe Work Phone: [facility] Work Phone: Encounters Encounter Date Encounter Type Care Provider Facility Start: 05-17-2025 End: 05-17-2025 ambulatory El Lucio MD Work Phone: [facility] Comment on above: 08.07.25 Cure (Open Right Inguinal Hernia Repair 2.5 hours los 2) Start: 05-17-2025 End: 05-17-2025 Preprocedural examination done El Lucio MD Work Phone: [facility] Start: 05-16-2025 End: 05-16-2025 Patient encounter procedure El Lucio MD Work Phone: General Surgery Comment on above: Right inguinal herni a (Primary Dx) Start: 05-16-2025 End: 05-16-2025 ambulatory ELISA NARVAEZ Facility:[facility] Start: 05-14-2025 ambulatory Manuel Beebe Facilit y:[facility] Start: 04-24-2025 ambulatory Elisa SERRANO Facili ty:[facility] Start: 04-12-2025 ambulatory Manuel Beebe Facilit y:[facility] Start: 03-15-2025 End: 03-15-[address] Manuel Beebe MD Work Phone: [facility] Work Phone: Start: 03-15-2025 End: 03-15-[address] Elisa Narvaez MD -[facility] Start: 03-15-[address] Elisa Narvaez MD -[facility] Start: 03-15-2025 End: 03-15-2025 ambulatory Manuel Beebe Facility:[facility] Start: 03-13-2025 End: 03-13-[address] Manuel Beebe MD Work Phone: [facility] Work Phone: Start: 03-13-2025 End: 03-13-[address] Cosme Gonzáles MD -[facility] Work Phone: Start: 03-11-2025 End: 03-11-[address] Manuel Beebe MD Work Phone: [facility] Work Phone: Start: 03-11-2025 End: 03-11-[address] Elisa Narvaez MD -[facility] Start: 03-11-[address] 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 Elisa Narvaez MD -[facility] Start: 02-14-2025 End: 02-15-2025 Telephone encounter Merlin Loredo MD Work Phone: [facility] Comment on above: Results Start: 02-13-2025 End: 02-13-2025 Patient encounter procedure Merlin Loredo MD Work Phone: Gastroenterology Comment on above: Liver disease (Prima ry Dx) Start: 02-13-2025 End: 02-13-2025 ambulatory ELISA NARVAEZ Facility:[facility] Start: 02-13-2025 End: 02-13-2025 Subsequent hospital visit by physician Us Main A21 2 Radiology Comment on above: Liver disease [K76.9 ] Start: 02-13-2025 End: 02-13-2025 ambulatory ELISA FARAHA Facility:[facility] Start: 01-24-2025 End: 01-24-[address] Dwayne Horton MD -[facility] Work Phone: Start: 01-24-2025 End: 01-24-2025 ambulatory Manuel Beebe Facility:[facility] Start: 01-18-2025 End: 01-18-[address] Manuel Beebe MD Work Phone: [facility] Work Phone: Start: 01-18-2025 End: 01-18-[address] Elisa Narvaez MD -[facility] Start: 01-18-2025 End: 01-18-2025 ambulatory Elisa Narvaez OLS Facility:[facility] Start: 12-21-2024 ambulatory Elisa SERRANO Facili ty:[facility] Start: 12-21-[address] Elisa Narvaez MD -[facility] Start: 12-12-2024 End: 12-12-2024 ambulatory Injection Satish [facility] Work Phone: Hematology/Oncology Comment on above: Prostate cancer (HCC ) (Primary Dx) Start: 12-12-2024 End: 12-12-2024 Patient encounter procedure Maye FORREST -[facility] Work Phone: Start: 12-12-2024 End: 12-12-2024 ambulatory Maye FORREST Facility:[facility] Start: 12-12-2024 End: 12-12-2024 ambulatory Cosme Gonzáles Facility:[facility] Start: 12-12-2024 End: 12-12-[address] Cosme Gonzáles MD -[facility] Work Phone: Start: 11-23-2024 End: 11-23-[address] Elisa Narvaez MD -[facility] Start: 11-23-2024 End: 11-23-2024 ambulatory Manuel D Talampas Facility:[facility] Start: 10-26-2024 End: 10-26-[address] Elisa Narvaez MD -[facility] Start: 10-26-2024 End: 10-26-2024 ambulatory Manuel D Talampas Facility:[facility] Start: 10-22-2024 End: 10-22-2024 Telephone encounter Merlin Loredo MD Work Phone: Gastroenterology Comment on above: Orders (New lab orde rs for February appt) Start: 10-22-2024 End: 10-22-[address] Elisa Narvaez MD -[facility] Start: 10-22-2024 End: 10-22-2024 ambulatory Manuel D Talampas Facility:[facility] Start: 09-28-2024 End: 09-28-2024 ambulatory Manuel D Talampas Facility:[facility] Start: 09-19-2024 End: 09-19-2024 ambulatory Injection Satish [facility] W[facility] Work Phone: Hematology/Oncology Comment on above: Prostate cancer (HCC ) (Primary Dx) Start: 09-12-2024 End: 09-12-2024 ambulatory Cosme Nivia Facility:[facility] Start: 09-10-2024 End: 09-10-2024 ambulatory Manuel D Talampas Facility:[facility] Start: 09-05-2024 End: 09-05-2024 Patient encounter procedure Balta Anna Work Phone: Hematology/Oncology Start: 09-05-2024 End: 09-05-2024 ambulatory Balta Anna Work Phone: Hematology/Oncology Comment on above: Prostate cancer (HCC ) (Primary Dx); 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) Start: 08-31-2024 End: 08-31-2024 ambulatory Manuel D Talampas Facility:[facility] Start: 08-28-2024 End: 08-28-2024 ambulatory ELISA D GUDLA Facility:[facility] Start: 08-28-2024 End: 08-28-2024 Patient encounter procedure Merlin Loredo MD Work Phone: Gastroenterology Comment on above: Liver disease (Prima ry Dx) Start: 08-28-2024 End: 08-28-2024 Patient encounter procedure Hepatology Procedures A5 Work Phone: Gastroenterology Start: 08-28-2024 End: 08-28-2024 ambulatory ELISA D GUDLA Gastroenterology Start: 08-28-2024 End: 08-28-2024 Subsequent hospital visit by physician Main A21 6 Work Phone: Radiology Comment on above: Liver disease [K76.9 ] Start: 08-28-2024 End: 08-28-2024 ambulatory ELISA D GUDLA Facility:[facility] Start: 08-22-2024 End: 08-22-2024 ambulatory ELISA D GUDLA Facility:[facility] Start: 08-22-2024 End: 08-22-2024 Subsequent hospital visit by physician Heladio Ramsey MD Work Phone: Gastroenterology Comment on above: Liver disease [K76.9 ] Start: 08-14-2024 End: 08-14-2024 Telephone encounter Franchesca Fontaine RNexecutive meeting manager Comment on above: Education Of Patient /family; Appointment (Voicemail left regarding 08/22/2024 Appointment) Start: 08-03-2024 End: 08-03-2024 ambulatory Manuel D Talampas Facility:[facility] Start: 08-02-2024 End: 08-02-2024 ambulatory Manuel D Talampas Facility:[facility] Start: 07-16-2024 ambulatory Manuel D Talampas Facilit y:[facility] Start: 07-06-2024 ambulatory Manuel D Talampas Facilit y:[facility] Start: 06-20-2024 End: 06-20-2024 ambulatory Injection Satish c Wstr Work Phone: Hematology/Oncology Comment on above: Prostate cancer (HCC ) (Primary Dx) Start: 06-19-2024 End: 06-19-2024 ambulatory Dwayne Baddour Facility:[facility] Start: 06-13-2024 End: 06-13-2024 ambulatory ELISA D JORGE ALBERTODLA Facility:[facility] Start: 06-13-2024 End: 06-13-2024 Office outpatient new 45 minutes Maximo Serrano MD Work Phone: Orthopaedics Comment on above: Chronic right hip pa in (Primary Dx); S/P hip hemiarthroplasty Start: 2024 End: 2024 ambulatory Injection Satish c Wstr Work Phone: Hematology/Oncology Comment on above: Prostate cancer (HCC ) (Primary Dx) Start: 06-07-2024 End: 2024 ambulatory Manuel D Talampas Facility:[facility] Start: 05-23-2024 Telephone encounter Ignacio jaimes MD Work Phone: Orthopaedics Comment on above: Appointment Start: 05-21-2024 Telephone encounter Jonnathan pugh DO Work Phone: Hematology/Oncology Comment on above: Results Start: 05-16-2024 ambulatory Kourtney Bhatia MD Work Phone: Endocrinology Comment on above: Steph Baumann Start: 05-01-2024 End: 05-01-2024 Patient encounter procedure Kourtney Bhatia MD Work Phone: Endocrinology Comment on above: Hypercalcemia (Prima ry Dx); Age-related osteoporosis without current pathological fracture Start: 04-23-2024 ambulatory MANUEL Robina TALAMPPADILLA [facility] Ambulatory Start: 03-26-2024 Orders Only Kourtney Bhatia MD Work Phone: Endocrinology Comment on above: Age-related osteopor osis without current pathological fracture (Primary Dx); Prostate cancer (HCC) Start: 03-25-2024 Telephone encounter Jonnathan pugh DO Work Phone: Hematology/Oncology Comment on above: Results Start: 03-21-2024 End: 03-21-2024 Subsequent hospital visit by physician Elham [facility] Marlena Brandon Work Phone: Radiology Comment on above: Right hip pain [M25. 551] Start: 03-21-2024 End: 03-21-2024 Patient encounter procedure Jonnathan Swift DO Work Phone: Hematology/Oncology Start: 03-21-2024 End: 03-21-2024 ambulatory Injection Satish [facility] Work Phone: Hematology/Oncology Comment on above: Prostate cancer (HCC ) (Primary Dx) Prostate cancer (HCC ) (Primary Dx); Right hip pain Start: 03-14-2024 End: 03-14-2024 Patient encounter procedure Merlin Loredo MD Work Phone: Gastroenterology Comment on above: Liver disease (Prima ry Dx); Cirrhosis of liver with ascites, unspecified hepatic cirrhosis type (HCC) (HCC) Start: 03-14-2024 End: 03-14-2024 Subsequent hospital visit by physician Us Aleman A21 2 Radiology Comment on above: Liver disease [K76.9 ] Start: 01-19-2024 End: 01-19-[address] Manuel Beebe Work Phone: [facility] Work Phone: Start: 01-19-2024 End: 01-19-[address] Manuel Beebe Work Phone: [facility] Start: 01-19-[address] Manuel gross Work Phone: [facility] Start: 01-18-2024 ambulatory Dinorah Martinez ord head of artAllergist Management Comment on above: Community Monitoring Outreach Start: 01-11-2024 End: 01-11-[address] Manuel Beebe Work Phone: [facility] Work Phone: Start: 01-11-2024 End: 01-11-[address] Manuel Beebe Work Phone: [facility] Start: 01-11-[address] Manuel gross Work Phone: [facility] Start: 01-06-2024 End: 01-06-2024 Orders Only Kourtney Bhatia MD Work Phone: Endocrinology Comment on above: Age-related osteopor osis without current pathological fracture (Primary Dx); Prostate cancer (HCC) Start: 01-06-2024 End: 01-06-[address] Manuel Beebe Work Phone: [facility] Start: 01-06-[address] Manuel gross Work Phone: [facility] Start: 12-30-2023 End: 12-30-[address] Manuel Beebe Work Phone: [facility] Work Phone: Start: 12-30-2023 End: 12-30-[address] 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 Manuel Beebe Work Phone: [facility] Work Phone: Start: 12-06-2023 ambulatory Dinorah edward head of artAllergist Management Comment on above: Community Monitoring Outreach Start: 11-14-2023 End: 11-14-[address] Manuel Beebe Work Phone: [facility] Work Phone: Start: 11-14-2023 End: 11-14-[address] Manuel Beebe Work Phone: [facility] Start: 10-19-2023 End: 10-19-[address] Manuel Beebe Work Phone: [facility] Work Phone: Start: 10-19-2023 End: 10-19-[address] Manuel Beebe Work Phone: [facility] Start: 10-13-2023 End: 10-13-[address] Manuel Beebe Work Phone: [facility] Work Phone: Start: 10-06-2023 End: 10-06-[address] Manuel Beebe Work Phone: [facility] Work Phone: Start: 09-30-2023 Telephone encounter Jonnathan pugh DO Work Phone: Hematology/Oncology Start: 09-23-2023 ambulatory Dinorah Fuentes Staff ord head of artAllergist Management Comment on above: Community Monitoring Outreach Start: 09-21-2023 Chart abstracting Lillian John RN Hematology/Oncology Comment on above: Research (Pre-Screen Research) Start: 09-14-2023 Telephone encounter Jonnathan pugh DO Work Phone: Hematology/Oncology Comment on above: Results Start: 09-02-2023 ambulatory Dinorah Fuentes Staff ord head of artAllergist Management Comment on above: Community Monitoring Outreach Start: 08-22-2023 End: 08-22-[address] Manuel Beebe Work Phone: [facility] Work Phone: Start: 08-22-2023 End: 08-22-[address] Manuel Beebe Work Phone: [facility] Start: 08-22-2023 End: 08-22-2023 Dr. Manuel Beebe Work Phone: [facility] Start: 08-08-2023 End: 08-08-[address] Manuel Beebe Work Phone: [facility] Work Phone: Start: 08-08-2023 End: 08-08-[address] Manuel Beebe Work Phone: [facility] Start: 08-08-2023 End: 08-08-2023 Dr. Manuel Beebe Work Phone: [facility] Start: 08-05-2023 End: 08-05-[address] Manuel Beebe Work Phone: [facility] Work Phone: Start: 08-05-2023 End: 08-05-[address] Manuel Beebe Work Phone: [facility] Start: 08-05-2023 End: 08-05-2023 Dr. Manuel Beebe Work Phone: [facility] Start: 08-04-2023 End: 08-04-[address] Manuel Beebe Work Phone: [facility] Work Phone: Start: 08-03-2023 Telephone encounter Merlin Loredo MD Work Phone: Gastroenterology Comment on above: Orders Start: 07-21-2023 End: 07-21-[address] Manuel Beebe Work Phone: [facility] Work Phone: Start: 07-21-2023 End: 07-21-[address] Manuel Beebe Work Phone: [facility] Start: 07-21-2023 End: 07-21-2023 Dr. Manuel Beebe Work Phone: [facility] Start: 07-20-2023 ambulatory Dinorah Fuentes Staff ord head of artAllergist Management Comment on above: Community Monitoring Outreach Start: 07-19-2023 End: 07-19-[address] Manuel Beebe Work Phone: [facility] Start: 07-19-2023 End: 07-19-2023 Dr. Manuel Beebe Work Phone: [facility] Start: 07-15-2023 End: 07-15-[address] Manuel Beebe Work Phone: [facility] Work Phone: Start: 07-15-2023 End: 07-15-[address] Manuel Beebe Work Phone: [facility] Start: 07-15-2023 End: 07-15-2023 Dr. Manuel Beebe Work Phone: [facility] Start: 07-12-2023 End: 07-12-[address] Manuel Beebe Work Phone: [facility] Work Phone: Start: 07-12-2023 End: 07-12-2023 Dr. Manuel Beebe Work Phone: [facility] Work Phone: Start: 07-08-2023 End: 07-08-[address] Manuel Beebe Work Phone: [facility] Work Phone: Start: 07-08-2023 End: 07-08-[address] Manuel Beebe Work Phone: [facility] Start: 07-08-2023 End: 07-08-2023 Dr. Manuel Beebe Work Phone: [facility] Start: 07-01-2023 End: 07-01-[address] Manuel Beebe Work Phone: [facility] Work Phone: Start: 07-01-2023 End: 07-01-[address] Manuel Beebe Work Phone: [facility] Start: 07-01-2023 End: 07-01-2023 Dr. Manuel Beebe Work Phone: [facility] Start: 06-27-2023 ambulatory Dinorah Martinez ord head of artAllergist Management Comment on above: Community Monitoring Outreach Start: 06-26-2023 Non-patient / Non-visit Dr. Elizabeth Beebe Work Phone: [facility] Work Phone: Start: 06-26-2023 Dr. Manuel simon Work Phone: [facility] Work Phone: Start: 06-25-2023 Dr. Manuel simon Work Phone: [facility] Work Phone: Start: 06-24-2023 Dr. Manuel simon Work Phone: [facility] Work Phone: Start: 06-24-2023 Dr. Manuel simon Work Phone: [facility] Start: 06-23-2023 Dr. Manuel simon Work Phone: [facility] Start: 06-23-2023 Dr. Manuel simon Work Phone: [facility] Work Phone: Start: 06-22-2023 Dr. Manuel simon Work Phone: [facility] Work Phone: Start: 06-21-2023 End: 06-26-2023 Evaluation and management of inpatient Dr. Manuel Beebe Work Phone: [facility] Work Phone: Start: 06-21-2023 End: 06-26-2023 Dr. Manuel Beebe Work Phone: [facility] Work Phone: Start: 06-21-2023 End: 06-21-2023 Emergency department patient visit Dr. Manuel Beebe Work Phone: [facility] Work Phone: Start: 06-21-2023 End: 06-21-2023 Dr. Manuel Beebe Work Phone: [facility] Work Phone: Start: 06-20-2023 Dr. Manuel simon Work Phone: [facility] Start: 06-14-2023 Dr. Manuel simon Work Phone: [facility] Start: 06-13-2023 End: 06-13-[address] Manuel Beebe Work Phone: [facility] Work Phone: Start: 06-13-2023 End: 06-13-2023 Dr. Manuel Beebe Work Phone: [facility] Start: 2023 End: 2023 Dr. Manuel Beebe Work Phone: [facility] Work Phone: Start: 06-06-2023 Dr. Manuel simon Work Phone: [facility] Start: 05-25-2023 End: 05-25-[address] Manuel Beebe Work Phone: [facility] Work Phone: Start: 05-25-2023 End: 05-25-2023 Dr. Manuel Beebe Work Phone: [facility] Start: 05-20-2023 Dr. Manuel simon Work Phone: [facility] Start: 05-18-2023 Dr. Manuel simon Work Phone: [facility] Start: 05-11-2023 Dr. Manuel simon Work Phone: [facility] Start: 05-04-2023 End: 05-04-[address] Manuel Beebe Work Phone: [facility] Work Phone: Start: 05-04-2023 End: 05-04-2023 Dr. Manuel Beebe Work Phone: [facility] Work Phone: Start: 05-03-2023 Dr. Manuel simon Work Phone: [facility] Start: 04-26-2023 Dr. Manuel simon Work Phone: [facility] Start: 04-25-2023 Non-patient / Non-visit Dr. Elizabeth [facility] Work Phone: [facility] Start: 04-25-2023 Dr. Manuel simon Work Phone: [facility] Work Phone: Start: 04-25-2023 Non-patient / Non-visit Dr. Elizabeth Beebe Work Phone: [facility] Start: 04-25-2023 Dr. Manuel simon Work Phone: [facility] Start: 04-24-2023 Non-patient / Non-visit Dr. Elizabeth Beebe Work Phone: [facility] Start: 04-24-2023 Dr. Manuel simon Work Phone: [facility] Work Phone: Start: 04-23-2023 End: 04-23-2023 Dr. Manuel Beebe Work Phone: [facility] Work Phone: Start: 04-23-2023 End: 04-25-2023 Evaluation and management of inpatient Dr. Manuel Beebe Work Phone: [facility] Start: 04-23-2023 End: 04-25-2023 Dr. Manuel Beebe Work Phone: [facility] Work Phone: Start: 04-22-2023 Telephone encounter Manuel dash MD Work Phone: [facility] Comment on above: Patient Update Start: 04-20-2023 ambulatory Dinorah Funetes Staff ord head of artAllergist Management Comment on above: Community Monitoring Outreach Start: 04-19-[address] Manuel gross Work Phone: [facility] Start: 04-19-2023 End: 04-19-2023 Dr. Manuel Beebe Work Phone: [facility] Start: 04-16-2023 Non-patient / Non-visit Dr. Elizabeth Beebe Work Phone: [facility] Start: 04-16-2023 Dr. Manuel simon Work Phone: [facility] Work Phone: Start: 04-16-2023 End: 04-16-2023 Dr. Manuel Beebe Work Phone: [facility] Work Phone: Start: 04-15-2023 Non-patient / Non-visit Dr. Elizabeth Beebe Work Phone: [facility] Start: 04-15-2023 Dr. Manuel simon Work Phone: [facility] Work Phone: Start: 04-14-2023 Non-patient / Non-visit Dr. Elizabeth Beebe Work Phone: [facility] Start: 04-14-2023 Dr. Manuel simon Work Phone: [facility] Work Phone: Start: 04-13-2023 Non-patient / Non-visit Dr. Elizabeth Beebe Work Phone: [facility] Start: 04-13-2023 End: 04-16-2023 Evaluation and management of inpatient Dr. Manuel Beebe Work Phone: [facility] 3 Start: 04-13-2023 End: 04-16-2023 Dr. Manuel Beebe Work Phone: [facility] 3 Work Phone: Start: 04-13-2023 Telephone encounter Manuel dash MD Work Phone: [facility] [place] Comment on above: Patient Update Start: 04-12-2023 End: 04-12-2023 Office outpatient visit 25 minutes Olga Styles APRN.QUALITY CONTROL SUPERVISOR Work Phone: [facility] [place] Comment on above: Hypotension due to d rugs (Primary Dx); Nausea; Adult failure to thrive; Type 2 diabetes mellitus with other specified complication, with long-term current use of insulin (HCC); Paroxysmal atrial fibrillation (HCC); Chronic diastolic CHF (congestive heart failure) (HCC); Parkinson's disease (HCC) Start: 04-12-2023 Non-patient / Non-visit Dr. Elizabeth Beebe Work Phone: [facility] Start: 04-12-2023 Dr. Manuel simon Work Phone: [facility] Work Phone: Start: 04-11-2023 Telephone encounter Manuel dash MD Work Phone: [facility] [place] Comment on above: Faxed to [facility] med/allison g verbal orders Start: 04-11-2023 Non-patient / Non-visit Dr. Elizabeth Beebe Work Phone: [facility] Start: 04-11-2023 Dr. Manuel simon Work Phone: [facility] Work Phone: Start: 04-10-2023 Non-patient / Non-visit Dr. Elizabeth Beebe Work Phone: [facility] Start: 04-10-2023 End: 04-12-2023 Evaluation and management of inpatient Dr. Manuel Beebe Work Phone: [facility] Start: 04-10-2023 End: 04-12-[address] Manuel Beebe Work Phone: [facility] Work Phone: Start: 04-10-2023 End: 04-12-2023 Dr. Manuel Beebe Work Phone: [facility] Work Phone: Start: 04-07-2023 Telephone encounter Manuel dash MD Work Phone: [facility] [place] Comment on above: Patient Request (Fozia stapleton is going to the 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; Moderate persistent asthma without complication; Cirrhosis of liver with ascites, unspecified hepatic cirrhosis type (HCC) Start: 03-11-2023 Telephone encounter Merlin Loredo MD Work Phone: Gastroenterology Comment on above: Patient Update Start: 03-09-2023 Telephone encounter Merlin Loredo MD Work Phone: Gastroenterology Comment on above: Results Start: 03-09-2023 End: 03-09-2023 Patient encounter procedure Merlin Loredo MD Work Phone: Gastroenterology Comment on above: Liver disease (Prima ry Dx); Other cirrhosis of liver (HCC) Start: 03-09-2023 End: 03-09-2023 Subsequent hospital visit by physician Main A21 2 Radiology Comment on above: Liver disease [K76.9 ] Start: 02-25-2023 ambulatory Dinorah Fuentes Staff ord head of artAllergist Management Comment on above: Community Monitoring Outreach Start: 02-16-2023 End: 02-16-[address] Manuel Beebe Work Phone: [facility] Start: 02-16-2023 End: 02-16-2023 Dr. Manuel Beebe Work Phone: [facility] Work Phone: Start: 02-09-2023 ambulatory Dinorah Fuentes Staff ord head of artAllergist Management Comment on above: Community Monitoring Outreach Start: 02-02-2023 ambulatory Dinorah Fuentes Staff ord head of artAllergist Management Comment on above: Community Monitoring Outreach Start: 01-27-2023 End: 01-27-[address] Manuel Beebe Work Phone: [facility] Start: 01-27-2023 End: 01-27-2023 Dr. Manuel Beebe Work Phone: [facility] Work Phone: Start: 01-26-2023 End: 01-26-[address] Manuel Beebe Work Phone: [facility] Start: 01-26-2023 End: 01-26-2023 Dr. Manuel Beebe Work Phone: [facility] Work Phone: Start: 01-06-2023 End: 01-06-[address] Manuel Beebe Work Phone: [facility] Start: 01-06-2023 End: 01-06-[address] Manuel Beebe Work Phone: [facility] Work Phone: Start: 01-06-2023 End: 01-06-[address] Manuel Beebe Work Phone: [facility] Start: 01-04-2023 ambulatory Dinorah Fuentes Staff ord head of artAllergist Management Comment on above: Community Monitoring Outreach Start: 12-30-2022 ambulatory Dinorah Fuentes Staff ord head of artAllergist Management Comment on above: Community Monitoring Outreach Start: 12-23-2022 End: 12-23-[address] Manuel Beebe Work Phone: [facility] Neurology Start: 12-22-2022 Refill Manuel bond MD Work Phone: [facility] [place] Comment on above: Refill Request Start: 11-25-2022 Non-patient / Non-visit Dr. Elizabeth Beebe Work Phone: [facility] Start: 11-25-2022 End: 11-25-[address] Manuel Beebe Work Phone: [facility] Work Phone: Start: 11-25-2022 End: 11-25-[address] Manuel Beebe Work Phone: [facility]Cardi[facility] Start: 11-22-2022 ambulatory Dinorah Fuentes Staff ord head of artAllergist Management Comment on above: Community Monitoring Outreach Start: 11-10-2022 End: 11-10-[address] Manuel Beebe Work Phone: [facility] Start: 10-21-2022 End: 10-21-[address] Manuel Beebe Work Phone: [facility] Work Phone: Start: 10-21-2022 End: 10-21-[address] Manuel Beebe Work Phone: [facility] Start: 10-18-2022 ambulatory Dinorah Fuentes Staff ord head of artAllergist Management Comment on above: Community Monitoring Outreach Start: 10-06-2022 ambulatory Lorrie R Cho pra PA-C Work Phone: Pulmonary Medicine Start: 10-04-2022 Telephone encounter Manuel dash MD Work Phone: [facility] [place] Comment on above: Orders ([employer]- do not use) Start: 09-15-2022 ambulatory Dinorah Fuentes Staff ord head of artAllergist Management Comment on above: Community Monitoring Outreach Start: 09-15-2022 Refill Rustam Masterson PA-C Work Phone: Urology Comment on above: Refill Request Start: 09-14-2022 Refill Rustam Masterson PA-C Work Phone: Urology Comment on above: Refill Request Start: 09-09-2022 End: 09-09-[address] Manuel Beebe Work Phone: [facility] Start: 09-05-2022 Refill Rustam Masterson PA-C Work Phone: Urology Comment on above: Refill Request Start: 09-02-2022 End: 09-02-2022 Subsequent hospital visit by physician Us Main A21 3 Work Phone: Radiology Comment on above: Liver disease [K76.9 ] Start: 09-02-2022 End: 09-02-2022 Patient encounter procedure Merlin Loredo MD Work Phone: Gastroenterology Comment on above: Liver disease (Prima ry Dx) Start: 08-13-2022 ambulatory Albino Murray RN Allergist Management Comment on above: Community Monitoring Outreach Start: 08-11-2022 End: 08-11-[address] Manuel Beebe Work Phone: [facility] Work Phone: Start: 08-11-2022 End: 08-11-[address] Manuel Beebe Work Phone: [facility]/Neurology Start: 08-09-2022 End: 08-09-[address] Manuel Beebe Work Phone: [facility] Work Phone: Start: 08-09-2022 End: 08-09-[address] Manuel Beebe Work Phone: [facility] Start: 08-09-2022 End: 08-09-[address] Manuel Beebe Work Phone: [facility] Neurology Start: 07-21-2022 End: 07-21-[address] Manuel Beebe Work Phone: [facility] Work Phone: Start: 07-21-2022 End: 07-21-[address] Manuel Beebe Work Phone: [facility] Start: 07-20-2022 Telephone encounter Manuel dash MD Work Phone: [facility] Comment on above: Appointment Start: 07-15-2022 Telephone encounter Manuel dash MD Work Phone: [facility] [place] Comment on above: Orders (Mobility sco oter) Start: 06-23-2022 ambulatory Albino Murray RN Ambulatory Best Practice Alerts Comment on above: Community Monitoring Outreach Start: 06-16-2022 Refill Munira Dickerson MD Work Phone: [facility] Comment on above: Status post hip mann arthroplasty (Primary Dx) Start: 06-15-2022 End: 06-16-2022 ambulatory MUNIRA DICKERSON [facility] Start: 06-15-2022 End: 06-15-2022 Office outpatient visit 15 minutes Munira Dickerson MD Work Phone: [facility] Comment on above: Status post hip mann arthroplasty (Primary Dx) Start: 06-14-2022 Telephone encounter Manuel dash MD Work Phone: [facility] [place] Comment on above: Orders Start: 06-07-2022 ambulatory Albino Murray RN Ambulatory Best Practice Alerts Comment on above: Community Monitoring Outreach (CHF / Asthma CDM Outreach) Start: 06-07-2022 End: 06-07-2022 Emergency department patient visit Dr. Manuel Beebe Work Phone: [facility]Emergency Department Start: 06-03-2022 Orders Only Munira Dickerson MD Work Phone: [facility]opedic [facility] Sports Medicine Comment on above: Hip fracture requiri ng operative repair, right, closed, initial encounter (HCC) (Primary Dx); Status post hip hemiarthroplasty Start: 05-24-2022 End: 05-24-[address] Manuel Beebe Work Phone: [facility] Start: 05-24-2022 End: 05-24-[address] Manuel Beebe Work Phone: [facility] Neurology Start: 05-19-2022 Refill Manuel bond MD Work Phone: [facility] [place] Comment on above: Refill Request (SEE RX NOTES) Community Monitoring Outreach (CHF/ Asthma CDM Outreach) Start: 05-18-2022 End: 05-19-2022 ambulatory MUNIRA ROMERO [facility] Start: 05-18-2022 End: 05-18-2022 Office outpatient visit 15 minutes Munira Dickerson MD Work Phone: [facility] Comment on above: Hip fracture requiri ng operative repair, right, closed, initial encounter (HCC) (Primary Dx); Low back pain without sciatica, unspecified back pain laterality, unspecified chronicity Start: 05-12-2022 Telephone encounter Manuel dash MD Work Phone: Internal [facility] Comment on above: Handicap Placard Start: 05-05-2022 End: 05-06-2022 ambulatory [facility] Start: 04-30-2022 Telephone encounter Manuel dash MD Work Phone: [facility] [place] Comment on above: Patient Update Start: 04-30-2022 End: 04-30-2022 Emergency department patient visit Dr. Manuel Beebe Work Phone: [facility] Start: 04-28-2022 End: 04-28-[address] Manuel Beebe Work Phone: [facility] Start: 04-27-2022 Non-patient / Non-visit Dr. Elizabeth Beebe Work Phone: [facility] Start: 04-26-2022 Non-patient / Non-visit Dr. Elizabeth Beebe Work Phone: [facility] Start: 04-26-2022 Orders Only Munira Dickerson MD Work Phone: [facility] Comment on above: Pain (Primary Dx) Start: 04-26-2022 Non-patient / Non-visit Dr. Elizabeth Beebe Work Phone: [facility] Start: 04-25-2022 Non-patient / Non-visit Dr. Elizabeth Beebe Work Phone: [facility] Start: 04-25-2022 End: 04-27-2022 Evaluation and management of inpatient Dr. Manuel Beebe Work Phone: [facility] Start: 04-25-[address] Manuel gross Work Phone: [facility] Out[facility] Start: 04-21-2022 ambulatory Albino Murray RN Allergist Management Comment on above: Community Monitoring Outreach (CHF / Asthma CDM Outreach) Start: 04-16-2022 End: 04-16-2022 ambulatory Jana Lara RP Work Phone: [facility] Comment on above: Controlled type 2 di abetes mellitus without complication, with long-term current use of insulin (HCC) (Primary Dx) Start: 04-16-2022 End: 04-16-2022 Telemedicine consultation with patient Jana Lara RP Work Phone: [facility] Start: 04-13-[address] Manuel Beebe Work Phone: [facility] On[facility] Start: 04-13-2022 End: 04-13-[address] Manuel Beebe Work Phone: [facility] Start: 04-06-2022 ambulatory Albino Murray RN Allergist Management Comment on above: Community Monitoring Outreach (CHF/ CDM Outreach ) Start: 04-06-2022 Telephone encounter Manuel dash MD Work Phone: [facility] [place] Comment on above: Home Health Orders Start: 04-01-2022 Telephone encounter Jana Lara RP Work Phone: [facility] Comment on above: Diabetes Start: 03-31-2022 End: 03-31-[address] Manuel Beebe Work Phone: [facility] Start: 03-30-2022 Orders Only Munira Dickerson MD Work Phone: [facility] Comment on above: Low back pain withou t sciatica, unspecified back pain laterality, unspecified chronicity (Primary Dx) Start: 03-25-2022 ambulatory Albino Murray RN Allergist Management Comment on above: Community Monitoring Outreach (CHF Telephonic CDM Outreach) Start: 03-23-2022 End: 03-24-2022 Orders Only Munira Dickerson MD Work Phone: [facility] Comment on above: Pain (Primary Dx) Start: 03-23-2022 End: 03-23-2022 Postop follow up visit related to original px Munira Dickerson MD Work Phone: [facility] Comment on above: Hip fracture requiri ng operative repair, right, closed, initial encounter (HCC) (Primary Dx); Low back pain without sciatica, unspecified back pain laterality, unspecified chronicity Start: 03-18-2022 Orders Only Munira Dickerson MD Work Phone: [facility] Comment on above: Pain (Primary Dx) Start: 03-17-2022 End: 03-17-[address] Manuel Beebe Work Phone: [facility] Start: 03-17-[address] Manuel Beebe Work Phone: [facility]Rad[facility] Oncology Start: 03-15-2022 ambulatory Albino Murray head of artAllergist Management Comment on above: Community Monitoring Outreach (CHF/ Asthma Telephonic CDM Outreach ) Start: 03-12-2022 Non-patient / Non-visit Dr. Elizabeth Beebe Work Phone: [facility] Start: 03-10-2022 End: 03-10-[address] Manuel Beebe Work Phone: [facility] Start: 03-10-2022 Non-patient / Non-visit Dr. Elizabeth Beebe Work Phone: [facility] Start: 03-03-2022 ambulatory Albino Murray RN Allergist Management Comment on above: Community Monitoring Outreach (CHF/ Asthma Telephonic CDM Outreach) Start: 03-03-2022 End: 03-03-[address] Manuel Beebe Work Phone: [facility] Start: 02-24-2022 Documentation procedure Ashli Chang MA [facility] Start: 02-24-2022 End: 02-24-[address] Manuel Beebe Work Phone: [facility] Start: 02-22-2022 ambulatory Albino Murray RN Allergist Management Comment on above: Community Monitoring Outreach (CHF/ Asthma CDM Telephonic Outreach) Start: 02-22-2022 Non-patient / Non-visit Dr. Elizabeth Beebe Work Phone: [facility] Start: 02-19-2022 Non-patient / Non-visit Dr. Elizabeth Beebe Work Phone: [facility] Start: 02-19-2022 Orders Only Munira Dickerson MD Work Phone: [facility] Comment on above: Hip fracture requiri ng operative repair, right, closed, initial encounter (HCC) (Primary Dx); Status post hip hemiarthroplasty Start: 02-19-2022 End: 04-14-2022 Evaluation and management of inpatient Dr. Manuel Beebe Work Phone: [facility]Transitional [facility] Start: 02-12-2022 Telephone encounter Jana Lara [facility] Work Phone: [facility] Comment on above: cancelling apt/fall (in hospital) Start: 02-10-2022 End: 02-19-2022 Evaluation and management of inpatient PHYSICIAN [facility] Start: 02-10-2022 Orders Only Msohe Alanis MD Work Phone: [facility] Provider Hospitalist Start: 02-10-2022 End: 02-10-2022 Emergency department patient visit Dr. Manuel Beebe Work Phone: [facility]Emergency Department Start: 02-09-[address] Manuel Beebe Work Phone: [facility]Radiation Oncology Start: 02-04-2022 ambulatory Albino Murray head of artAllergist Management Comment on above: Community Monitoring Outreach (CHF/ Asthma CDM Outreach) Start: 02-03-2022 Telephone encounter Jeannesameer Masonjayden [facility] Work Phone: [facility] Comment on above: Orders (Testing supp lies) Start: 02-03-2022 End: 02-03-[address] Manuel Beebe Work Phone: [facility] Start: 02-02-2022 End: 02-02-2022 Refill Manuel Beebe MD Work Phone: Family [facility] Comment on above: Refill Request Controlled type 2 di abetes mellitus without complication, with long-term current use of insulin (HCC) (Primary Dx); Medication management Start: 01-27-2022 End: 01-27-[address] Manuel Beebe Work Phone: [facility] Start: 01-26-2022 End: 01-26-[address] Manuel Beebe Work Phone: [facility] Start: 01-21-2022 Non-patient / Non-visit Dr. Elizabeth Beebe Work Phone: [facility] Start: 01-14-2022 End: 01-14-[address] Manuel Beebe Work Phone: [facility] Start: 01-14-2022 End: 01-14-[address] Manuel Beebe Work Phone: [facility] Start: 01-13-2022 Non-patient / Non-visit Dr. Elizabeth Beebe Work Phone: [facility] Start: 01-13-[address] Saray Beebe Work Phone: [facility] Start: 01-06-2022 End: 01-06-2022 Admission to same day surgery center [facility] Start: 12-21-2021 End: 12-21-[address] Manuel Beebe Work Phone: [facility] Start: 12-10-2021 End: 12-10-[address] Manuel Beebe Work Phone: [facility] Start: 11-19-2021 End: 11-19-[address] Manuel Beebe Work Phone: [facility] Start: 11-12-2021 End: 11-12-[address] Manuel Beebe Work Phone: [facility]-Laboratory, Specimen Start: 05-08-2021 Telephone encounter Maneul dash MD Work Phone: [facility] [place] Comment on above: Weight Loss Start: 12-31-2013 End: 03-08-2016 Preprocedural examination done Merlin Loredo MD Work Phone: [facility] Procedures Date Procedure Procedure Detail Performing Clinician Start: 02-13-2025 Us abdominal real ti me w/image limited Merlin Loredo MD Work Phone: Start: 08-28-2024 Liver elastography w /o imag w/i&r Fabiola Miller APRN.CNP Work Phone: Start: 08-28-2024 Us abdominal real ti me w/image limited Merlin Loredo MD Work Phone: Start: 08-22-2024 Esophagoscp rig hylton soral hypopharynx crv esoph Merlin Loredo MD Work Phone: Start: 03-14-2024 Us abdominal real ti me w/image limited Merlin Loredo MD Work Phone: Start: 06-23-2023 MRI of lower extremity Dr. Manuel Beebe Work Phone: Start: 06-22-2023 Plain x-ray of pelvi s and lower extremity Dr. Manuel Beebe Work Phone: Start: 06-21-2023 SARS-CoV-2 & FLU Ant igen (Rapid) Dr. Manuel Beebe Work Phone: Start: 06-21-2023 Dr. Manuel gross Work Phone: Start: 06-21-2023 CT of head without contrast Dr. Manuel Beebe Work Phone: Start: 06-21-2023 Plain chest X-ray Dr. Saray Beebe Work Phone: Start: 06-14-2023 Cl[address] e detection Dr. Manuel Beebe Work Phone: Start: 04-25-[address] Manuel Beebe Work Phone: Start: 04-23-2023 Pelvis X-ray Dr. Manuel gross Work Phone: Start: 04-23-2023 CT angiography of ch est with contrast Dr. Manuel Beebe Work Phone: Start: 04-23-2023 Plain chest X-ray Dr. Saray Beebe Work Phone: Start: 04-16-[address] Manuel Beebe Work Phone: Start: 04-13-2023 Plain chest X-ray Dr. Saray Beebe Work Phone: Start: 04-10-2023 Plain chest X-ray Dr. Saray Beebe Work Phone: Start: 04-10-2023 CT of head without contrast Dr. Manuel Beebe Work Phone: Start: 03-23-2023 Hemoglobin A1c/Hemoglobin.total in Blood Manuel Beebe MD Work Phone: Start: 03-09-2023 Us abdominal real ti me w/image limited Margareth Rivas MD Work Phone: Start: 01-06-2023 US scan of thyroid Dr. Manuel Beebe Work Phone: Start: 09-02-2022 End: 09-02-2022 Us abdominal real time w/image limited Margareth Rivas MD Work Phone: Start: 07-21-2022 CT of head without contrast Dr. Manuel Beebe Work Phone: Start: 07-21-2022 CT of lumbar spine Dr. Manuel Beebe Work Phone: Start: 06-07-2022 Plain chest X-ray Dr. Saray Beebe Work Phone: Start: 04-30-2022 Plain chest X-ray Dr. Saray Beebe Work Phone: Start: 04-25-2022 Plain chest X-ray Dr. Saray Beebe Work Phone: Start: 04-12-2022 End: 04-12-[address] Manuel Beebe Work Phone: Start: 03-31-[address] Manuel Beebe Work Phone: Start: 03-10-2022 Plain x-ray of pelvi s and lower extremity Dr. Manuel Beebe Work Phone: Start: 03-01-2022 Plain x-ray of pelvi s and lower extremity Dr. Manuel Beebe Work Phone: Start: 02-10-2022 Bacteria identified in Blood by Culture Dr. Manuel Beebe Work Phone: Start: 02-10-2022 SARS-CoV-2 & FLU Ant igen (Rapid) Dr. Manuel Beebe Work Phone: Start: 02-10-2022 CT of head without contrast Dr. Manuel Beebe Work Phone: Start: 02-10-2022 Plain chest X-ray Dr. Saray Beebe Work Phone: Start: 02-10-2022 Plain x-ray of pelvi s and lower extremity Dr. aMnuel Beebe Work Phone: Start: 02-10-2022 Radiologic examinati on of knee Dr. Manuel Beebe Work Phone: Start: 01-14-2022 MRI of pelvis with contrast Dr. Manuel Beebe Work Phone: Start: 01-04-2022 SARS-CoV-2 Antigen (Rapid) Dr. Manuel Beebe Work Phone: Start: 11-23-2021 Radionuclide whole b luc bone study Dr. Manuel Beebe Work Phone: Start: 11-19-2021 Computed tomography of abdomen and pelvis with intravenous contrast Dr. Manuel Beebe Work Phone: Start: 04-03-2021 Adult depression scr eening assessment Manuel Beebe MD Work Phone: Start: 02-06-2014 Colonoscopy Manuel simon MD Work Phone: Bacteria identified in Blood by Culture Dr. Manuel Beebe Work Phone: SARS-CoV-2 & FLU Ant igen (Rapid) Dr. Manuel Beebe Work Phone: SARS-CoV-2 & FLU Ant igen (Rapid) Dr. Manuel Beebe Work Phone: SARS-CoV-2 Antigen (Rapid) Robina Beebe Work Phone: Urine culture Dr. Manuel simon Work Phone: Viral antigen assay Dr. Manuel Beebe Work Phone: Plan of Treatment Date Care Activity Detail Author Start: 03-06-2026 BP Controlled (<130/80) BP Controlled (<130/80) [facility] Start: 02-13-2026 BP Controlled (<130/80) BP Controlled (<130/80) [facility] Start: 02-13-2026 Creatinine measurement Serum Creatinine [facility] Start: 09-05-2025 BP Controlled (<130/80) BP Controlled (<130/80) [facility] Start: 08-28-2025 BP Controlled (<130/80) BP Controlled (<130/80) [facility] Start: 08-28-2025 Creatinine measurement Serum Creatinine [facility] Start: 08-21-2025 End: 08-21-2025 ambulatory [facility] Comment on above: PSA 6MO OV/INJ &LAB TODA Y* Q6MO LUPRON/Q6MO PRO DADA/ORDERING PROV DR BHATIA/CLINT* Start: 08-07-2025 Subsequent hospital visit by physician 08/07/2025 Hospital Encounter Admitting [address] [place] [address] El Lucio MD [address] [place] [address] Preoperative examination [Z01.818], Non-recurrent unilateral inguinal hernia without obstruction or gangrene [K40.90] Admitting Comment on above: Preoperative examination [Z01.818], Non- recurrent unilateral inguinal hernia without obstruction or gangrene [K40.90] Start: 07-17-2025 End: 07-17-2025 Patient encounter procedure 07/17/2025 10:55 AM EDT Office Visit Gastroenterology [address] [address] Merlin Loredo MD [address] [place] [address] Liver disease [K76.9] Gastroenterology Comment on above: Liver disease [K76.9] Start: 07-17-2025 End: 07-17-2025 Patient encounter procedure 07/17/2025 9:45 AM EDT Appointment Radiology [address] [id number] Liver disease [K76.9] Radiology Comment on above: Liver disease [K76.9] Start: 07-16-2025 End: 11-30-2025 aPTT in Platelet poor plasma by Coagulation assay ACTIVATED PARTIAL THROMBOPLASTIN TIME Lab Routine Preoperative examination Non-recurrent unilateral inguinal hernia without obstruction or gangrene Abnormal coagulation profile Expected: 07/16/2025, Expires: 11/30/2025 [facility] Comment on above: Expected: 07/16/2025, Expires: Start: 07-16-2025 End: 08-15-2025 CBC panel - Blood by Automated count COMPLETE BLOOD COUNT Lab Routine Liver disease Expected: 07/16/2025, Expires: 08/15/2025 [facility] Comment on above: Expected: 07/16/2025, Expires: Start: 07-16-2025 End: 11-30-2025 CBC W Auto Differential panel - Blood COMPLETE BLOOD COUNT AND DIFFERENTIAL Lab Routine Preoperative examination Non-recurrent unilateral inguinal hernia without obstruction or gangrene Expected: 07/16/2025, Expires: 11/30/2025 [facility] Comment on above: Expected: 07/16/2025, Expires: Start: 07-16-2025 End: 11-30-2025 Comprehensive metabolic 2000 panel - Serum or Plasma [facility] Work Phone: Comment on above: Expected: 07/16/2025, Expires: Expected: 07/16/2025 , Expires: 11/30/2025 Start: 07-16-2025 End: 11-30-2025 PT panel - Platelet poor plasma by Coagulation assay [facility] Comment on above: Expected: 07/16/2025, Expires: Expected: 07/16/2025 , Expires: 11/30/2025 Start: 07-16-2025 End: 11-30-2025 TYPE AND SCREEN,30 DAY TYPE AND SCREEN,30 DAY Blood Bank Routine Preoperative examination Non-recurrent unilateral inguinal hernia without obstruction or gangrene Expected: 07/16/2025, Expires: 11/30/2025 [facility] Comment on above: Expected: 07/16/2025, Expires: Start: 07-16-2025 End: 08-15-2025 US Abdomen RUQ US ABD RIGHT UPPER QUADRANT Radiology Routine Liver disease Expected: 07/16/2025, Expires: 08/15/2025 [facility] Comment on above: Expected: 07/16/2025, Expires: Start: 07-08-2025 Influenza vaccination [facility] Start: 05-29-2025 End: 05-29-2025 Infusion Center 05/29/2025 2:00 PM EDT Infusion Center Hematology/Oncology [address] [place] [address] Wstr, Injection Satish [facility] [address] [place] [address] Q3MO LUPRON/Q6MO PROLIA/ORDERING PROV DR BHATIA/CLINT* Hematology/Oncology Comment on above: Q3MO LUPRON/Q6MO PROLIA/ORDERING PROV DR BHATIA/CLINT* Start: 05-01-2025 BP Controlled (<130/80) BP Controlled (<130/80) [facility] Start: 04-10-2025 Creatinine measurement Serum Creatinine [facility] Start: 03-21-2025 BP Controlled (<130/80) BP Controlled (<130/80) [facility] Start: 03-14-2025 BP Controlled (<130/80) BP Controlled (<130/80) [facility] Start: 03-13-2025 End: 03-13-2025 Follow-up encounter 03/13/2025 11:30 AM EDT Visit (SP) Office Hematology/Oncology [address] [place] [address] Jonnathan Swift DO [address] [place] [address] 6MO FOLLOW UP* (SCHED INJECTION SAME DAY) Hematology/Oncology Comment on above: 6MO FOLLOW UP* (SCHED INJECTION SAME DAY ) Start: 03-06-2025 End: 03-06-2025 ambulatory 03/06/2025 3:30 PM EDT Infusion Center Hematology/Oncology [address] [place] [address] Wstr, Injection Satish [facility] [address] [place] [address] Q3MO LUPRON/MDCR* Hematology/Oncology Comment on above: Q3MO LUPRON/MDCR* Start: 03-06-2025 End: 03-06-2025 ambulatory Hematology/Oncology Comment on above: 6 MO OV/INJ TODAY* Q3MO LUPRON/OV EARLY /MDCR* Start: 02-27-2025 Covid-19 Vaccine () Covid-19 Vaccine () [facility] Start: 02-27-2025 End: 02-27-2025 Patient encounter procedure Radiology Comment on above: Liver disease [K76.9] Start: 02-14-2025 Complete blood count Hemoglobin/Hematocrit [facility] Start: 02-14-2025 Creatinine measurement Serum Creatinine [facility] Start: 02-13-2025 End: 02-13-2025 Patient encounter procedure Radiology Comment on above: Liver disease [K76.9] Start: 12-22-2024 Creatinine measurement Serum Creatinine [facility] Start: 12-12-2024 End: 12-12-2024 Infusion Center 12/12/2024 2:45 PM EST Infusion Center Hematology/Oncology [address] [place] [address] Wstr, Injection Satish [facility] [address] [place] [address] Q3MO LUPRON/MDCR PSA/Q6MO PROLIA/ORDERING PROV DR BHATIA/DEWAYNER* - this date due to transportation Hematology/Oncology Comment on above: Q3MO LUPRON/MDCR PSA/Q6MO PROLIA/ORDERIN G PROV DR BHATIA/DEWAYNER* - this date due to transportation Start: 12-01-2024 BP Controlled (<130/80) BP Controlled (<130/80) [facility] Start: 11-28-2024 End: 11-28-2024 Infusion Center 11/28/2024 2:00 PM EST Infusion Center Hematology/Oncology [address] [place] [address] Wstr, Injection Satish [facility] [address] [place] [address] Q3MO LUPRON/MDCR PSA/Q6MO PROLIA/ORDERING PROV DR BHATIA/DEWAYNER* - this date due to transportation Hematology/Oncology Comment on above: Q3MO LUPRON/MDCR PSA/Q6MO PROLIA/ORDERIN G PROV DR BHATIA/MDCR* - this date due to transportation Start: 11-07-2024 Advance Directive Discussion Advance Directive Discussion [facility] Start: 09-28-2024 BP Controlled (<130/80) BP Controlled (<130/80) [facility] Start: 09-19-2024 End: 09-19-2024 ambulatory 09/19/2024 3:30 PM [facility] Infusion Center Hematology/Oncology [address] [place] [address] Wstr, Injection Satish [facility] [address] [place] [address] Q3MO LUPRON/MDCR* Hematology/Oncology Comment on above: Q3MO LUPRON/MDCR* Start: 09-05-2024 End: 09-05-2024 ambulatory [facility] Comment on above: PSA* PSA/6 MO OV/LUPRON T CAMPBELL* Q3MO LUPRON/MDCR* Start: 08-28-2024 End: 11-27-2024 CBC panel - Blood by Automated count COMPLETE BLOOD COUNT Lab Routine Liver disease Expected: 08/28/2024, Expires: 11/27/2024 [facility] Comment on above: Expected: 08/28/2024, Expires: Start: 08-28-2024 End: 11-27-2024 Comprehensive metabolic 2000 panel - Serum or Plasma COMPREHENSIVE METABOLIC PANEL Lab Routine Liver disease Expected: 08/28/2024, Expires: 11/27/2024 [facility] Work Phone: Comment on above: Expected: 08/28/2024, Expires: Start: 08-28-2024 End: 11-27-2024 PT panel - Platelet poor plasma by Coagulation assay PROTHROMBIN TIME Lab Routine Liver disease Expected: 08/28/2024, Expires: 11/27/2024 [facility] Comment on above: Expected: 08/28/2024, Expires: Start: 08-28-2024 End: 08-28-2024 Patient encounter procedure Gastroenterology Comment on above: Liver disease [K76.9] US ABD RIGHT UPPER Q UADRANT FOLLOW UP TESTING/LI CHUNG Start: 08-28-2024 End: 08-28-2024 ambulatory [facility] Comment on above: LABS Liver disease [K76.9 ] Start: 08-22-2024 End: 08-22-2024 Patient encounter procedure 08/22/2024 10:30 AM EDT Appointment Gastroenterology [address] [id number] Heladio Mariee MD [address] [place] [address] Liver disease [K76.9] Gastroenterology Comment on above: Liver disease [K76.9] Start: 08-21-2024 End: 08-21-2024 Patient encounter procedure 08/21/2024 3:30 PM EDT Office Visit Gastroenterology [address] [address] Merlin Loredo MD [address] [place] [address] FOLLOW UP TESTING/LIVER Gastroenterology Comment on above: FOLLOW UP TESTING/LIVER Start: 08-21-2024 End: 08-21-2024 ambulatory Gastroenterology Comment on above: Liver disease [K76.9] LABS Start: 08-21-2024 End: 08-21-2024 Patient encounter procedure 08/21/2024 10:30 AM EDT Appointment Radiology [address] [place] [address] Liver disease [K76.9] Radiology Comment on above: Liver disease [K76.9] Start: 08-14-2024 End: 09-14-2024 CBC panel - Blood by Automated count COMPLETE BLOOD COUNT Lab Routine Liver disease Expected: 08/14/2024, Expires: 09/14/2024 [facility] Comment on above: Expected: 08/14/2024, Expires: Start: 08-14-2024 End: 09-14-2024 Comprehensive metabolic 2000 panel - Serum or Plasma COMPREHENSIVE METABOLIC PANEL Lab Routine Liver disease Expected: 08/14/2024, Expires: 09/14/2024 [facility] Comment on above: Expected: 08/14/2024, Expires: Start: 08-14-2024 End: 09-14-2024 EGD - THERAPEUTIC, EUS, OR TUBE INTERVENTIONS EGD - THERAPEUTIC, EUS, OR TUBE INTERVENTIONS Endoscopy Routine Liver disease Expected: 08/14/2024, Expires: 09/14/2024 [facility] Work Phone: Comment on above: Expected: 08/14/2024, Expires: Start: 08-14-2024 End: 09-14-2024 Liver ultrasound attenuation by transient elastography DDI VIBRATION CONTROLLED TRANSIENT ELASTOGRAPHY (VCTE) Endoscopy Routine Liver disease Expected: 08/14/2024, Expires: 09/14/2024 [facility] Comment on above: Expected: 08/14/2024, Expires: Start: 08-14-2024 End: 09-14-2024 PT panel - Platelet poor plasma by Coagulation assay PROTHROMBIN TIME Lab Routine Liver disease Expected: 08/14/2024, Expires: 09/14/2024 [facility] Comment on above: Expected: 08/14/2024, Expires: Start: 08-14-2024 End: 09-14-2024 US Abdomen RUQ US ABD RIGHT UPPER QUADRANT Radiology Routine Liver disease Expected: 08/14/2024, Expires: 09/14/2024 [facility] Comment on above: Expected: 08/14/2024, Expires: Start: 07-19-2024 End: 07-19-2024 Patient encounter procedure 07/19/2024 11:30 AM EDT Office Visit [facility] [address] [place] [address] Leif Mathis MD [address] [address] [place] [address] r hip pain [facility] Comment on above: r hip pain Start: 07-08-2024 Covid-19 Vaccine ( season) Covid-19 Vaccine () [facility] Start: 07-08-2024 Influenza vaccination [facility] Start: 06-20-2024 End: 06-20-2024 ambulatory 06/20/2024 10:45 AM EDT Infusion Center Hematology/Oncology [address] [place] [address] Wstr, Injection Satish [facility] [address] [place] [address] Q3MO LUPRON/MDCR PSA* Hematology/Oncology Comment on above: Q3MO LUPRON/MDCR PSA* Start: 06-13-2024 End: 06-13-2024 Patient encounter procedure 06/13/2024 2:20 PM EDT Office Visit Orthopaedics [address] [address] Maximo Serrano MD [address] [place] [address] RIGHT HIP PAIN Orthopaedics Comment on above: RIGHT HIP PAIN Start: 06-13-2024 End: 06-13-2024 ambulatory 06/13/2024 11:15 AM EDT Infusion Center Hematology/Oncology [address] [place] [address] Wstr, Injection Satish [facility] [address] [place] [address] Q3MO LUPRON/MDCR* Hematology/Oncology Comment on above: Q3MO LUPRON/MDCR* Start: 2024 End: 2024 Infusion Center 2024 9:15 AM EDT Infusion Center Hematology/Oncology [address] [place] [address] Wstr, Injection Satish [facility] [address] [place] [address] START Q? PROLIA/11-07?/ORDERING PROV DR BHATIA/AUTH EXP?* Hematology/Oncology Comment on above: START Q? PROLIA?/ORDERING PROV DR RUPA SHELDON/AUTH EXP?* Start: 05-28-2024 End: 05-28-2024 Patient encounter procedure 05/28/2024 3:30 PM EDT Office Visit Orthopaedics [address] [place] [address] Newton Daily MD [address] [place] [address] //POA WILL FAX RECORDS/// Orthopaedics Comment on above: //POA WILL FAX RECORDS/// Start: 05-23-2024 End: 05-23-2024 Patient encounter procedure 05/23/2024 2:40 PM EDT Office Visit Orthopaedics [address] [address] Maximo Serrano MD [address] [place] [address] RIGHT HIP PAIN Orthopaedics Comment on above: RIGHT HIP PAIN Start: 05-09-2024 End: 05-09-2024 ambulatory 05/09/2024 10:15 AM EDT Results Only Marlena Robersonwn [facility] [address] [place] [address] Marlena [address] [facility] Start: 05-04-2024 End: 08-03-2024 Albumin [Mass/volume] in Serum or Plasma ALBUMIN Lab Routine Age-related osteoporosis without current pathological fracture Hypercalcemia Expected: 05/04/2024, Expires: 08/03/2024 [facility] Comment on above: Expected: 05/04/2024, Expires: Start: 05-04-2024 End: 08-03-2024 Calcium [Mass/volume] in Serum or Plasma CALCIUM, TOTAL Lab Routine Age-related osteoporosis without current pathological fracture Hypercalcemia Expected: 05/04/2024, Expires: 08/03/2024 [facility] Comment on above: Expected: 05/04/2024, Expires: Start: 05-04-2024 End: 08-03-2024 Magnesium [Mass/volume] in Serum or Plasma MAGNESIUM Lab Routine Age-related osteoporosis without current pathological fracture Hypercalcemia Expected: 05/04/2024, Expires: 08/03/2024 [facility] Comment on above: Expected: 05/04/2024, Expires: Start: 05-04-2024 End: 08-03-2024 Parathyrin.intact [Mass/volume] in Serum or Plasma PTH INTACT Lab Routine Age-related osteoporosis without current pathological fracture Hypercalcemia Expected: 05/04/2024, Expires: 08/03/2024 [facility] Comment on above: Expected: 05/04/2024, Expires: Start: 05-04-2024 End: 08-03-2024 Phosphate [Mass/volume] in Serum or Plasma PHOSPHORUS INORGANIC Lab Routine Age-related osteoporosis without current pathological fracture Hypercalcemia Expected: 05/04/2024, Expires: 08/03/2024 [facility] Comment on above: Expected: 05/04/2024, Expires: Start: 05-04-2024 End: 08-03-2024 Thyrotropin [Units/volume] in Serum or Plasma THYROID STIMULATING HORMONE Lab Routine Age-related osteoporosis without current pathological fracture Hypercalcemia Expected: 05/04/2024, Expires: 08/03/2024 [facility] Work Phone: Comment on above: Expected: 05/04/2024, Expires: Start: 05-01-2024 End: 05-01-2024 Patient encounter procedure 05/01/2024 4:20 PM EDT Office Visit Endocrinology [address] [place] [address] Kourtney Bhatia MD [address] [place] [address] 3 month f/u Endocrinology Comment on above: 3 month f/u Start: 04-18-2024 End: 04-18-2024 Patient encounter procedure Radiology Comment on above: Rt Hip rt hip prvs replmt n ot ccf Start: 04-12-2024 BP CONTROLLED (<130/80) BP CONTROLLED (<130/80) [facility] in Start: 04-02-2024 End: 07-02-2024 25-hydroxyvitamin D3 [Mass/volume] in Serum or Plasma VITAMIN D 25 HYDROXY Lab Routine Age-related osteoporosis without current pathological fracture Prostate cancer (HCC) Expected: 04/02/2024, Expires: 07/02/2024 [facility] Work Phone: Comment on above: Expected: 04/02/2024, Expires: Start: 04-02-2024 End: 07-02-2024 Calcium.ionized [Moles/volume] in Blood CALCIUM, IONIZED Lab Routine Age-related osteoporosis without current pathological fracture Prostate cancer (HCC) Expected: 04/02/2024, Expires: 07/02/2024 [facility] Comment on above: Expected: 04/02/2024, Expires: Start: 04-02-2024 End: 07-02-2024 Comprehensive metabolic 2000 panel - Serum or Plasma COMPREHENSIVE METABOLIC PANEL Lab Routine Age-related osteoporosis without current pathological fracture Prostate cancer (HCC) Expected: 04/02/2024, Expires: 07/02/2024 [facility] Comment on above: Expected: 04/02/2024, Expires: Start: 04-02-2024 End: 07-02-2024 Parathyrin related protein [Moles/volume] in Serum or Plasma PTH RELATED PEPTIDE Lab Routine Age-related osteoporosis without current pathological fracture Prostate cancer (HCC) Expected: 04/02/2024, Expires: 07/02/2024 [facility] Comment on above: Expected: 04/02/2024, Expires: Start: 04-02-2024 End: 07-02-2024 Parathyrin.intact [Mass/volume] in Serum or Plasma PTH INTACT Lab Routine Age-related osteoporosis without current pathological fracture Prostate cancer (HCC) Expected: 04/02/2024, Expires: 07/02/2024 [facility] Comment on above: Expected: 04/02/2024, Expires: Start: 03-24-2024 Covid-19 Vaccine () Covid-19 Vaccine () [facility] Start: 03-23-2024 ANNUAL PCP TEAM CHRONIC DISEASE VISIT ANNUAL PCP TEAM CHRONIC DISEASE VISIT [facility] Start: 03-23-2024 BP CONTROLLED (<130/80) BP CONTROLLED (<130/80) [facility] Start: 03-21-2024 End: 03-21-2024 ambulatory [facility] Comment on above: PSA* Q3MO LUPRON/MDCR* PSA/6 MO OV/LUPRON T CAMPBELL* Start: 03-09-2024 BP CONTROLLED (<130/80) BP CONTROLLED (<130/80) [facility] Start: 03-09-2024 Creatinine measurement Serum Creatinine [facility] Start: 03-09-2024 SERUM CREATININE SERUM CREATININE [facility] Start: 02-07-2024 Colonoscopy COLONOSCOPY [facility] Start: 02-07-2024 COLORECTAL CANCER SCREENING COLORECTAL CANCER SCREENING [facility] Start: 02-07-2024 Screening for malignant neoplasm of colon [facility] Start: 01-06-2024 End: 04-06-2024 Calcium.ionized [Moles/volume] in Blood CALCIUM IONIZED BLOOD Lab Routine Age-related osteoporosis without current pathological fracture Prostate cancer (HCC) Expected: 01/06/2024, Expires: 04/06/2024 [facility] Work Phone: Comment on above: Expected: 01/06/2024, Expires: Start: 01-06-2024 End: 04-06-2024 Comprehensive metabolic 2000 panel - Serum or Plasma COMP METABOLIC PANEL Lab Routine Age-related osteoporosis without current pathological fracture Prostate cancer (HCC) Expected: 01/06/2024, Expires: 04/06/2024 [facility] Work Phone: Comment on above: Expected: 01/06/2024, Expires: 4 Start: 01-06-2024 End: 04-06-2024 Magnesium [Mass/volume] in Serum or Plasma MAGNESIUM BLD Lab Routine Age-related osteoporosis without current pathological fracture Expected: 01/06/2024, Expires: 04/06/2024 [facility] Work Phone: Comment on above: Expected: 01/06/2024, Expires: Start: 01-06-2024 End: 04-06-2024 Parathyrin.intact [Mass/volume] in Serum or Plasma PTH INTACT BLD Lab Routine Age-related osteoporosis without current pathological fracture Prostate cancer (HCC) Expected: 01/06/2024, Expires: 04/06/2024 [facility] Work Phone: Comment on above: Expected: 01/06/2024, Expires: 4 Start: 01-06-2024 End: 04-06-2024 Phosphate [Mass/volume] in Serum or Plasma PHOSPHORUS INORGANIC Lab Routine Age-related osteoporosis without current pathological fracture Expected: 01/06/2024, Expires: 04/06/2024 [facility] Work Phone: Comment on above: Expected: 01/06/2024, Expires: 4 Start: 12-31-2023 Tetanus vaccination Tetanus: Every 10yrs [facility] Start: 12-31-2023 Urine microalbumin profile [facility] Start: 12-22-2023 End: 03-22-2024 OCCUPATIONAL HEALTH EXPOSURE PROFILE/PATIENT [facility] Work Phone: Comment on above: Expected: 12/22/2023, Expires: 4 Start: 11-07-2023 Advance Directive Discussion Advance Directive Discussion [facility] Start: 11-07-2023 Behavioral Health Screening Behavioral Health Screening [facility] Start: 11-07-2023 Depression Assessment Depression Assessment [facility] Start: 10-01-2023 3 comp foot exam completed DIABETIC FOOT EXAM [facility] Start: 10-01-2023 ANNUAL PCP TEAM CHRONIC DISEASE VISIT ANNUAL PCP TEAM CHRONIC DISEASE VISIT [facility] Start: 10-01-2023 BP CONTROLLED (<130/80) BP CONTROLLED (<130/80) [facility] in Start: 10-01-2023 Diabetic foot examination Diabetic Foot Exam [facility] Start: 10-01-2023 Influenza vaccination LUNG CANCER SCREENING [facility] Comment on above: Postponed from 2002 (Declined at t his time) Start: 10-01-2023 SHINGRIX VACCINE (1 of 2) SHINGRIX VACCINE (1 of 2) [facility] Comment on above: Postponed from 2002 (Declined at t his time) Start: 09-12-2023 End: 11-12-2023 ALBUMIN/CREAT RATIO RND UR ALBUMIN/CREAT RATIO RND UR Lab Routine Controlled type 2 diabetes mellitus without complication, with long-term current use of insulin (HCC) Expected: 09/12/2023 (Approximate), Expires: 11/12/2023 [facility] Work Phone: Comment on above: Expected: 09/12/2023 (Approximate), Expi res: 11/12/2023 Start: 09-12-2023 End: 10-24-2023 CBC panel - Blood by Automated count CBC Lab Routine Liver disease Expected: 09/12/2023 (Approximate), Expires: 10/24/2023 [facility] Work Phone: Comment on above: Expected: 09/12/2023 (Approximate), Expi res: 10/24/2023 Start: 09-12-2023 End: 10-24-2023 Comprehensive metabolic 2000 panel - Serum or Plasma COMP METABOLIC PANEL Lab Routine Liver disease Expected: 09/12/2023 (Approximate), Expires: 10/24/2023 [facility] Work Phone: Comment on above: Expected: 09/12/2023 (Approximate), Expi res: 10/24/2023 Start: 09-12-2023 End: 11-12-2023 Hemoglobin A1c in Blood HGB A1C Lab Routine Controlled type 2 diabetes mellitus without complication, with long-term current use of insulin (HCC) Essential hypertension, benign Expected: 09/12/2023 (Approximate), Expires: 11/12/2023 [facility] Work Phone: Comment on above: Expected: 09/12/2023 (Approximate), Expi res: 11/12/2023 Start: 09-12-2023 End: 11-12-2023 Lipid 1996 panel - Serum or Plasma LIPID PANEL BASIC Lab Routine Controlled type 2 diabetes mellitus without complication, with long-term current use of insulin (HCC) Essential hypertension, benign Expected: 09/12/2023 (Approximate), Expires: 11/12/2023 [facility] Work Phone: Comment on above: Expected: 09/12/2023 (Approximate), Expi res: 11/12/2023 Start: 09-12-2023 End: 10-24-2023 PT panel - Platelet poor plasma by Coagulation assay PROTHROMBIN TIME/PT Lab Routine Liver disease Expected: 09/12/2023 (Approximate), Expires: 10/24/2023 [facility] Work Phone: Comment on above: Expected: 09/12/2023 (Approximate), Expi res: 10/24/2023 Start: 09-12-2023 End: 10-24-2023 US ABD RIGHT UPPER QUADRANT US ABD RIGHT UPPER QUADRANT Radiology Routine Liver disease Expected: 09/12/2023 (Approximate), Expires: 10/24/2023 [facility] Work Phone: Comment on above: Expected: 09/12/2023 (Approximate), Expi res: 10/24/2023 Start: 09-02-2023 BP CONTROLLED (<130/80) BP CONTROLLED (<130/80) [facility] Start: 07-08-2023 Covid-19 Vaccine ( season) Covid-19 Vaccine () [facility] Start: 07-08-2023 Influenza vaccination [facility] Start: 06-27-2023 [facility] Start: 06-26-2023 Patient discharge [facility] Start: 06-23-2023 Hemoglobin A1c measurement HbA1C [facility] Start: 06-23-2023 Hemoglobin A1c/Hemoglobin.total in Blood HBA1C [facility] Start: 06-23-2023 Consultation [facility] Start: 06-22-2023 Referral to occupational therapist [facility] Start: 06-22-2023 Referral to service [facility] Start: 06-22-2023 Verification routine [facility] Start: 06-21-2023 Assessment of risk of venous thromboembolism [facility] Start: 06-21-2023 Care regimes management [facility] Start: 06-21-2023 Insertion of catheter into peripheral vein [facility] Start: 06-21-2023 Notification of physician [facility] Start: 06-21-2023 Providing care according to standard [facility] Start: 06-21-2023 Referral to service [facility] Start: 06-21-2023 [facility] Start: 06-21-2023 Following clinical pathway protocol [facility] Start: 06-21-2023 Admission procedure [facility] Start: 04-28-2023 ANNUAL PCP TEAM CHRONIC DISEASE VISIT ANNUAL PCP TEAM CHRONIC DISEASE VISIT [facility] Start: 04-28-2023 BP CONTROLLED (<130/80) BP CONTROLLED (<130/80) [facility] Start: 04-25-2023 Patient discharge [facility] Start: 04-24-2023 End: 04-25-2023 [facility] Start: 04-23-2023 Following clinical pathway protocol [facility] Start: 04-23-2023 Assessment of risk of venous thromboembolism [facility] Start: 04-23-2023 Insertion of catheter into peripheral vein [facility] Start: 04-23-2023 Measuring intake and output [facility] Start: 04-23-2023 Oxygen therapy [facility] Start: 04-23-2023 Providing care according to standard [facility] Start: 04-23-2023 Provision of activity privileges [facility] Start: 04-23-2023 Referral to occupational therapist [facility] Start: 04-23-2023 Referral to service [facility] Start: 04-23-2023 [facility] Start: 04-23-2023 Pelvis X-ray Pelvis 1 or 2 Views [facility] Start: 04-23-2023 XR Pelvis 1 or 2 Views [facility] Start: 04-23-2023 Verification routine [facility] Start: 04-23-2023 Admission procedure [facility] Start: 04-23-2023 CT angiography of chest with contrast CTA Chest W/WO Contrast [facility] Start: 04-23-2023 CTA Chest vessels WO and W contrast IV [facility] Start: 04-23-2023 [facility] Start: 04-19-2023 Blood chemistry [facility] Start: 04-18-2023 Blood chemistry [facility] Start: 04-17-2023 Blood chemistry [facility] Start: 04-16-2023 Patient discharge [facility] Start: 04-16-2023 Blood chemistry [facility] Start: 04-15-2023 Blood chemistry [facility] Start: 04-14-2023 Blood chemistry [facility] Start: 04-13-2023 Ambulation without limitation [facility] Start: 04-13-2023 Assessment of risk of venous thromboembolism [facility] Start: 04-13-2023 Care regimes management [facility] Start: 04-13-2023 Insertion of catheter into peripheral vein [facility] Start: 04-13-2023 Measuring intake and output [facility] Start: 04-13-2023 Notification of physician [facility] Start: 04-13-2023 Oxygen therapy [facility] Start: 04-13-2023 Providing care according to standard [facility] Start: 04-13-2023 Referral to occupational therapist [facility] Start: 04-13-2023 Referral to service [facility] Start: 04-13-2023 Following clinical pathway protocol [facility] Start: 04-13-2023 End: 04-13-2023 [facility] Start: 04-13-2023 Verification routine [facility] Start: 04-13-2023 Admission procedure [facility] Start: 04-13-2023 [facility] Start: 04-13-2023 Blood chemistry [facility] Start: 04-12-2023 Patient discharge [facility] Start: 04-11-2023 Referral to service [facility] Start: 04-10-2023 End: 04-11-2023 [facility] Start: 04-10-2023 Following clinical pathway protocol [facility] Start: 04-10-2023 Ambulation without limitation [facility] Start: 04-10-2023 Assessment of risk of venous thromboembolism [facility] Start: 04-10-2023 Care regimes management [facility] Start: 04-10-2023 Inhalation therapy procedure [facility] Start: 04-10-2023 Insertion of catheter into peripheral vein [facility] Start: 04-10-2023 Measuring intake and output [facility] Start: 04-10-2023 Oxygen therapy [facility] Start: 04-10-2023 Providing care according to standard [facility] Start: 04-10-2023 Provision of activity privileges [facility] Start: 04-10-2023 Referral to occupational therapist [facility] Start: 04-10-2023 Referral to service [facility] Start: 04-10-2023 Admission procedure [facility] Start: 04-10-2023 Emergency dept visit high severity&threat funcj [facility] Start: 04-10-2023 Iv infusion hydration initial 31 min-1 hour [facility] Start: 03-31-2023 Hemoglobin A1c/Hemoglobin.total in Blood HBA1C [facility] Start: 01-29-2023 COVID-19 VACCINE (6 - Pfizer series) COVID-19 VACCINE (6 - Pfizer series) [facility] Start: 01-12-2023 ANNUAL PCP TEAM CHRONIC DISEASE VISIT ANNUAL PCP TEAM CHRONIC DISEASE VISIT [facility] Start: 12-23-2022 Patient referral [facility] Work Phone: Start: 11-07-2022 ADVANCE DIRECTIVE DISCUSSION ADVANCE DIRECTIVE DISCUSSION [facility] Start: 11-07-2022 DEPRESSION ASSESSMENT DEPRESSION ASSESSMENT [facility] Start: 10-28-2022 Hemoglobin A1c/Hemoglobin.total in Blood HBA1C [facility] Start: 09-25-2022 ANNUAL PCP TEAM CHRONIC DISEASE VISIT ANNUAL PCP TEAM CHRONIC DISEASE VISIT [facility] Start: 08-09-2022 Serum immunofixation [facility] Work Phone: Start: 08-09-2022 Urine immunofixation [facility] Work Phone: Start: 07-10-2022 Hemoglobin A1c measurement A1C [facility] Start: 07-08-2022 Influenza vaccination [facility] Start: 06-25-2022 COVID-19 Vaccine (5 - Booster for Pfizer series) COVID-19 Vaccine (5 - Booster for Pfizer series) [facility] Start: 06-15-2022 End: 06-15-2022 Patient encounter procedure 06/15/2022 Office Visit Orthopedic Surgery Munira Dickerson MD [address] [place] [address] [facility] Start: 05-24-2022 [place] and lambda light chains [facility] Work Phone: Start: 05-24-2022 Thiamine measurement [facility] Work Phone: Start: 05-11-2022 End: 05-11-2022 Patient encounter procedure 05/11/2022 Office Visit Orthopedic Surgery Munira Dickerson MD [address] [place] [id number] [facility] Start: 05-05-2022 End: 05-05-2022 Patient encounter procedure 05/05/2022 Appointment Radiology Munira Dickerson MD [address] [place] [id number] [facility] Start: 05-04-2022 End: 05-04-2022 Patient encounter procedure 05/04/2022 Office Visit Orthopedic Surgery Munira Dickerson MD [address] [place] [id number] [facility] Start: 04-27-2022 Patient discharge [facility] Work Phone: Start: 04-26-2022 Referral to occupational therapist [facility] Work Phone: Start: 04-26-2022 Referral to service [facility] Work Phone: Start: 04-26-2022 Oxygen therapy [facility] Work Phone: Start: 04-25-2022 Assessment of risk of venous thromboembolism [facility] Work Phone: Start: 04-25-2022 Care regimes management [facility] Work Phone: Start: 04-25-2022 Elevation of affected extremity [facility] Work Phone: Start: 04-25-2022 Insertion of catheter into peripheral vein [facility] Work Phone: Start: 04-25-2022 Measuring intake and output [facility] Work Phone: Start: 04-25-2022 Notification of physician [facility] Work Phone: Start: 04-25-2022 Patient education [facility] Work Phone: Start: 04-25-2022 Providing care according to standard [facility] Work Phone: Start: 04-25-2022 Provision of activity privileges [facility] Work Phone: Start: 04-25-2022 [facility] Work Phone: Start: 04-25-2022 Following clinical pathway protocol [facility] Work Phone: Start: 04-25-2022 Admission procedure [facility] Work Phone: Start: 04-20-2022 COVID-19 VACCINE (5 - Booster for Pfizer series) COVID-19 VACCINE (5 - Booster for Pfizer series) [facility] Start: 04-15-2022 Development of care plan [facility] Work Phone: Start: 04-14-2022 Patient discharge [facility] Work Phone: Start: 04-13-2022 Oxygen therapy [facility] Work Phone: Start: 04-09-2022 Hemoglobin A1c measurement A1C [facility] Start: 04-09-2022 Hemoglobin A1c/Hemoglobin.total in Blood HBA1C [facility] Start: 04-03-2022 3 comp foot exam completed DIABETIC FOOT EXAM [facility] Start: 04-03-2022 Adult depression screening assessment DEPRESSION SCREENING [facility] Start: 04-03-2022 SHINGRIX VACCINE (1 of 2) SHINGRIX VACCINE (1 of 2) [facility] Comment on above: Postponed from 2002 (Declined at t his time) Start: 04-01-2022 Referral to service [facility] Work Phone: Start: 03-31-2022 Development of care plan [facility] Work Phone: Start: 03-31-2022 Administration of blood product [facility] Work Phone: Start: 03-31-2022 [facility] Work Phone: Start: 03-30-2022 Administration of blood product [facility] Work Phone: Start: 03-26-2022 Hepatitis B surface antibody level LDL CHOLESTEROL [facility] Start: 03-24-2022 [facility] Work Phone: Start: 03-23-2022 End: 03-23-2022 Patient encounter procedure 03/23/2022 Office Visit Orthopedic Surgery Viau, Munira Romero MD [address] [place] [address] [facility] Start: 03-19-2022 Speech therapy management [facility] Work Phone: Start: 03-18-2022 Introduction of urinary catheter [facility] Work Phone: Start: 03-18-2022 [facility] Work Phone: Start: 03-17-2022 End: 03-17-2022 Developing a treatment plan [facility] Work Phone: Start: 03-16-2022 [facility] Work Phone: Start: 03-16-2022 [facility] Work Phone: Start: 03-11-2022 Consultation for pain [facility] Work Phone: Start: 03-02-2022 Following clinical pathway protocol [facility] Work Phone: Start: 03-01-2022 End: 03-01-2022 Patient encounter procedure 03/01/2022 Office Visit Orthopedic Surgery Viau, Munira Romero MD [address] [place] [id number] [facility] Start: 02-25-2022 [facility] Work Phone: Start: 02-24-2022 Skin care [facility] Work Phone: Start: 02-22-2022 [facility] Work Phone: Start: 02-20-2022 Speech therapy management [facility] Work Phone: Start: 02-20-2022 Seizure precautions [facility] Work Phone: Start: 02-19-2022 Patient referral to dietitian [facility] Work Phone: Start: 02-19-2022 Development of care plan [facility] Work Phone: Start: 02-19-2022 Developing a treatment plan [facility] Work Phone: Start: 02-19-2022 Speech therapy assessment [facility] Work Phone: Start: 02-19-2022 Admission procedure [facility] Work Phone: Start: 02-19-2022 Measuring intake and output [facility] Work Phone: Start: 02-19-2022 Patient referral to dietitian [facility] Work Phone: Start: 02-19-2022 Referral to occupational therapist [facility] Work Phone: Start: 02-19-2022 Referral to service [facility] Work Phone: Start: 02-19-2022 Vital signs measurements [facility] Work Phone: Start: 02-19-2022 [facility] Work Phone: Start: 02-19-2022 Provision of activity privileges [facility] Work Phone: Start: 02-10-2022 Bacteria identified in Blood by Culture Blood Culture [facility] Work Phone: Start: 02-05-2022 COVID-19 VACCINE (4 - Booster for Pfizer series) COVID-19 VACCINE (4 - Booster for Pfizer series) [facility] Start: 01-06-2022 Anesthesia anorectal procedure ANESTH ANORECTAL SURGERY [facility] Work Phone: Start: 01-06-2022 Plmt interstitial dev radiat tx prostate 1/mult PLACE RT DEVICE/MARKER PROS [facility] Work Phone: Start: 01-06-2022 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 njx TPRNL PLMT BIODEGRDABL MATRL [facility] Work Phone: Start: 01-06-2022 Ambulation without limitation [facility] Work Phone: Start: 01-06-2022 Medication education [facility] Work Phone: Start: 01-06-2022 Patient discharge [facility] Work Phone: Start: 01-06-2022 Taking patient vital signs [facility] Work Phone: Start: 01-06-2022 [facility] Work Phone: Start: 01-05-2022 COVID-19 Vaccine (4 - Booster for Pfizer series) COVID-19 Vaccine (4 - Booster for Pfizer series) [facility] Start: 11-07-2021 ADVANCE DIRECTIVE DISCUSSION ADVANCE DIRECTIVE DISCUSSION [facility] Start: 11-07-2021 DEPRESSION ASSESSMENT DEPRESSION ASSESSMENT [facility] Start: 11-06-2020 Hepatitis B screening URINE ALBUMIN:CREATININE RATIO [facility] Start: 08-23-2017 Glaucoma screening Dilated Retinal Exam [facility] Start: 08-23-2017 Hepatitis C antibody, confirmatory test DILATED RETINAL EXAM [facility] Start: 2017 Fall risk assessment Falls Risk Assessment [facility] Start: 12-08-2013 Medicare Annual Wellness Visit Medicare Annual Wellness Visit [facility] Start: 2012 RSV Vaccine (1 - 1-dose 60+ series) RSV Vaccine (1 - 1-dose 60+ series) [facility] Start: 2012 RSV Vaccine (1 - Risk 60-74 years 1-dose series) RSV Vaccine (1 - Risk 60-74 years 1-dose series) [facility] Start: 2002 Influenza vaccination LUNG CANCER SCREENING [facility] Start: 2002 Screening for malignant neoplasm of colon [facility] Start: 2002 Screening for malignant neoplasm of lung Lung Cancer Screening [facility] Start: 2002 SHINGRIX VACCINE (1 of 2) SHINGRIX VACCINE (1 of 2) [facility] Start: 1997 COLOGUARD (FIT-DNA) COLOGUARD (FIT-DNA) [facility] Start: [address] COLONOGRAPHY [facility] Start: 1997 FECAL OCCULT BLOOD FECAL OCCULT BLOOD [facility] Start: 1997 Screening for malignant neoplasm of colon [facility] Start: 1997 SIGMOIDOSCOPY SIGMOIDOSCOPY [facility] Start: 1971 Administration of herpes zoster vaccine Zoster Vaccines (1 of 2) [facility] Start: 1971 SHINGRIX VACCINE (1 of 2) SHINGRIX VACCINE (1 of 2) [facility] Start: 1970 Anxiety Screening Anxiety Screening [facility] Start: 1970 BP CONTROLLED (<130/80) [facility] Start: 1970 Depression Screening Depression Screening [facility] Start: 1970 Hepatitis C screening Hepatitis C Screening [facility] Start: 1964 Depression screening using PHQ-9 (Patient Health Questionnaire 9) score Depression Screening (PHQ-2/9) [facility] Start: 1962 Diabetic foot examination Foot Exam [facility] Start: 1962 Microalbumin measurement, urine, quantitative Urine Microalbumin [facility] Start: 1962 Ophthalmic examination and evaluation Ophthalmology Exam [facility] Start: 1958 PNEUMOCOCCAL: 65+ (1 - PCV) PNEUMOCOCCAL: 65+ (1 - PCV) [facility] Start: 1955 History and physical examination, annual for health maintenance Wellness Visit [facility] Start: 1952 Prostate specific antigen measurement PSA Level [facility] Start: 1952 Screening for malignant neoplasm of colon [facility] Albumin [Moles/volum e] in Serum or Plasma [facility] Work Phone: Albumin/Globulin ratio [facility] Work Phone: Anion gap measurement [facility] Ankle brachial press ure index [facility] Work Phone: BUN/Creatinine ratio [facility] Calcium [Mass/volume ] in Serum or Plasma [facility] Carbon dioxide, tota l [Moles/volume] in Serum or Plasma [facility] End: 09-02-2023 CBC panel - Blood by Automated count CBC Lab Routine Liver disease Every 6 months for 2 Occurrences starting 09/02/2022 until 09/02/2023 [facility] Work Phone: Comment on above: Every 6 months for 2 Occurrences startin g 09/02/2022 until 09/02/2023 Chloride [Moles/volu me] in Serum or Plasma [facility] End: 09-02-2023 Comprehensive metabolic 2000 panel - Serum or Plasma COMP METABOLIC PANEL Lab Routine Liver disease Every 6 months for 2 Occurrences starting 09/02/2022 until 09/02/2023 [facility] Work Phone: Comment on above: Every 6 months for 2 Occurrences startin g 09/02/2022 until 09/02/2023 Creatinine [Moles/volume] in Serum or Plasma [facility] CT Lumbar spine [facility] Work Phone: CT Unspecified body region [facility] Work Phone: End: 05-17-2026 ECG COMPLETE ECG COMPLETE ECG Routine Preoperative examination Non-recurrent unilateral inguinal hernia without obstruction or gangrene 1 Occurrences starting 05/17/2025 until 05/17/2026 [facility] Comment on above: 1 Occurrences starting 05/17/2025 until 05/17/2026 Electrophoresis: [id number] [facility] Work Phone: Electrophoresis: teddy ma globulin [facility] Work Phone: Globulin measurement [facility] Work Phone: Glucose [Mass/volume ] in Serum or Plasma [facility] Hematocrit [Volume Fraction] of Blood [facility] Hematocrit [Volume Fraction] of Blood [facility] Hematocrit [Volume Fraction] of Blood [facility] Hematocrit [Volume Fraction] of Blood [facility] Hemoglobin [Mass/volume] in Blood [facility] Hemoglobin [Mass/volume] in Blood [facility] Hemoglobin [Mass/volume] in Blood [facility] Hemoglobin [Mass/volume] in Blood [facility] IgA [Mass/volume] in Serum or Plasma [facility] Work Phone: IgG [Mass/volume] in Serum or Plasma [facility] Work Phone: IgM [Mass/volume] in Serum or Plasma [facility] Work Phone: [place]/lambda light chain ratio [facility] Work Phone: Lambda light chains.free [Mass/volume] in Serum or Plasma [facility] Work Phone: Laparoscopy surg rpr initial inguinal hernia LAPAROSCOPY SURGICAL REPAIR INITIAL INGUINAL HERNIA W/ MESH Preoperative examination Non-recurrent unilateral inguinal hernia without obstruction or gangrene [facility] Leukocytes [#/volume ] in Blood [facility] Leukocytes [#/volume ] in Blood [facility] Leukocytes [#/volume ] in Blood [facility] Leukocytes [#/volume ] in Blood [facility] Magnesium [Mass/volu me] in Serum or Plasma [facility] Mean corpuscular hemoglobin concentration determination [facility] Mean corpuscular hemoglobin concentration determination [facility] Mean corpuscular hemoglobin concentration determination [facility] Mean corpuscular hemoglobin concentration determination [facility] Mean corpuscular hemoglobin determination [facility] Mean corpuscular hemoglobin determination [facility] Mean corpuscular hemoglobin determination [facility] Mean corpuscular hemoglobin determination [facility] Measurement of renal function [facility] End: 03-30-2023 MRI of lumbar spine without contrast MR Lumbar Spine Without Contrast Imaging Routine Low back pain without sciatica, unspecified back pain laterality, unspecified chronicity 1 Occurrences starting 03/30/2022 until 03/30/2023 [facility] Work Phone: Comment on above: 1 Occurrences starting 03/30/2022 until 03/30/2023 Neutrophil count [facility] Neutrophil count [facility] Neutrophil count [facility] Neutrophil count [facility] Neutrophil percent differential count [facility] Neutrophil percent differential count [facility] Neutrophil percent differential count [facility] Neutrophil percent differential count [facility] Patient Education [facility] Work Phone: Patient referral [facility] Work Phone: Platelets [#/volume] in Blood [facility] Platelets [#/volume] in Blood [facility] Platelets [#/volume] in Blood [facility] Platelets [#/volume] in Blood [facility] Potassium [Moles/volume] in Serum or Plasma [facility] End: 12-19-2024 Prostate specific Ag [Mass/volume] in Serum or Plasma PSA/PROSTSPECAG DIAG Lab Routine Prostate cancer (HCC) 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) Every 3 months for 4 Occurrences starting 12/20/2023 until 12/19/2024 [facility] Work Phone: Comment on above: Every 3 months for 4 Occurrences startin g 12/20/2023 until 12/19/2024 Prostate specific antigen measurement [facility] Work Phone: Protein electrophore sis panel - Serum or Plasma [facility] Work Phone: End: 09-02-2023 PT panel - Platelet poor plasma by Coagulation assay PROTHROMBIN TIME/PT Lab Routine Liver disease Every 6 months for 2 Occurrences starting 09/02/2022 until 09/02/2023 [facility] Work Phone: Comment on above: Every 6 months for 2 Occurrences startin g 09/02/2022 until 09/02/2023 Red blood cell count [facility] Red blood cell count [facility] Red blood cell count [facility] Red blood cell count [facility] Red cell distributio n width determination [facility] Red cell distributio n width determination [facility] Red cell distributio n width determination [facility] Red cell distributio n width determination [facility] REFER FOR ADMIT INTERVIEW REFER FOR ADMIT INTERVIEW Procedures Routine Preoperative examination Non-recurrent unilateral inguinal hernia without obstruction or gangrene Ordered: 05/17/2025 [facility] Work Phone: Comment on above: Ordered: 05/17/2025 Serum protein electrophoresis [facility] Work Phone: Sodium [Moles/volume ] in Serum or Plasma [facility] Thiamine measurement [facility] Work Phone: Urea nitrogen [Mass/volume] in Serum or Plasma [facility] Urine immunofixation [facility] Work Phone: Urine kappa light ch ain measurement [facility] Work Phone: End: 09-27-2025 US Abdomen RUQ US ABD RIGHT UPPER QUADRANT Radiology Routine Liver disease 1 Occurrences starting 08/28/2024 until 09/27/2025 [facility] Comment on above: 1 Occurrences starting 08/28/2024 until 09/27/2025 End: 10-02-2023 Us abdominal real time w/image limited US ABD RT UPPER QUADRANT Radiology Routine Liver disease Every 6 months for 4 Occurrences starting 09/02/2022 until 10/02/2023, 1 completed [facility] Work Phone: Comment on above: Every 6 months for 4 Occurrences startin g 09/02/2022 until 10/02/2023, 1 completed US Carotid arteries [facility] Work Phone: End: 02-19-2023 XR Hip Right 2-3 Views (Routine) XR Hip Right 2-3 Views (Routine) Imaging Routine Hip fracture requiring operative repair, right, closed, initial encounter (HCC) Status post hip hemiarthroplasty 1 Occurrences starting 02/19/2022 until 02/19/2023 [employer] Work Phone: Comment on above: 1 Occurrences starting 02/19/2022 until 02/19/2023 End: 03-18-2023 XR Hip Right 2-3 Views (Routine) XR Hip Right 2-3 Views (Routine) Imaging Routine Pain 1 Occurrences starting 03/18/2022 until 03/18/2023 [employer] Work Phone: Comment on above: 1 Occurrences starting 03/18/2022 until 03/18/2023 End: 04-26-2023 XR Hip Right With Pelvis 2-3 Views (Routine) XR Hip Right With Pelvis 2-3 Views (Routine) Imaging Routine Pain 1 Occurrences starting 04/26/2022 until 04/26/2023 [employer] Work Phone: Comment on above: 1 Occurrences starting 04/26/2022 until 04/26/2023 End: 06-03-2023 XR Hip Right With Pelvis 2-3 Views (Routine) XR Hip Right With Pelvis 2-3 Views (Routine) Imaging Routine Hip fracture requiring operative repair, right, closed, initial encounter (HCC) Status post hip hemiarthroplasty 1 Occurrences starting 06/03/2022 until 06/03/2023 [facility] Work Phone: Comment on above: 1 Occurrences starting 06/03/2022 until 06/03/2023 End: 03-23-2023 XR Lumbar Spine 2-3 Views (Standard) XR Lumbar Spine 2-3 Views (Standard) Imaging Routine Pain 1 Occurrences starting 03/23/2022 until 03/23/2023 [facility] Work Phone: Comment on above: 1 Occurrences starting 03/23/2022 until 03/23/2023 XR Lumbar Spine 2-3 Views (Standard) XR Lumbar Spine 2-3 Views (Standard) Imaging Routine Pain 03/23/2022 3:05 PM EDT [facility] XR Pelvis and Hip - right AP and Lateral frog XR HIP GENERAL 3V PELV/AP/LAT RIGHT Radiology Routine Right hip pain Prostate cancer (HCC) 03/21/2024 1:02 PM EDT [facility] Work Phone: End: 04-20-2025 XR Pelvis and Hip - right AP and Lateral frog XR HIP GENERAL 3V PELV/AP/LAT RIGHT Radiology Routine Right hip pain Prostate cancer (HCC) 1 Occurrences starting 03/21/2024 until 04/20/2025 [facility] Work Phone: Comment on above: 1 Occurrences starting 03/21/2024 until 04/20/2025 [facility] Immunizations Immunization Date Immunization Notes Care Provider Fa cili 10-08-2022 influenza, injectabl e, quadrivalent, preservative free Dr. Manuel Beebe Work Phone: [facility] 10-08-2022 influenza, seasonal, injectable Dr. Manuel Beebe Work Phone: [facility] 10-08-2022 influenza virus vaccine, unspecified formulation Dinorah Posada RN [facility] 10-01-2022 COVID-19 booster vaccine, age 12+ yr, bivalent (PFIZER-BIONTECH) Manuel Beebe MD Work Phone: [facility] 10-01-2022 influenza, high-dose , quadrivalent vaccine (FLUZONE HIGH DOSE QUADRIVALENT) Manuel Beebe MD Work Phone: [facility] 02-23-2022 Covid (Pfizer) Dr. Manuel Damian [facility] Work Phone: [facility] 10-07-2021 COVID-19 vaccine, ag e 12+ yr (PFIZER-BIONTECH - PURPLE TOP) Manuel Beebe MD Work Phone: [facility] Work Phone: 09-25-2021 Influenza, high dose seasonal Dr. Manuel Beebe MD Work Phone: [facility] 09-25-2021 influenza, high dose seasonal, preservative-free Dr. Manuel Beebe Work Phone: [facility] 09-25-2021 influenza, high-dose , quadrivalent vaccine (FLUZONE HIGH DOSE QUADRIVALENT) Manuel Beebe MD Work Phone: [facility] 03-26-2021 COVID-19 vaccine, ag e 12+ yr (PFIZER-BIONTECH - PURPLE TOP) Manuel Beebe MD Work Phone: [facility] 03-05-2021 COVID-19 vaccine, ag e 12+ yr (PFIZER-BIONTECH - PURPLE TOP) Manuel Beebe MD Work Phone: [facility] 08-12-2020 influenza, high dose seasonal, preservative-free Manuel Beebe MD Work Phone: [facility] Work Phone: 04-02-2020 hepatitis A and hepatitis B vaccine Manuel Beebe MD Work Phone: [facility] Work Phone: 09-24-2019 hepatitis A and hepatitis B vaccine Manuel Beebe MD Work Phone: [facility] Work Phone: 08-23-2019 hepatitis A and hepatitis B vaccine Manuel Beebe MD Work Phone: [facility] Work Phone: 08-02-2019 influenza, high dose seasonal, preservative-free Manuel Beebe MD Work Phone: [facility] 02-13-2019 pneumococcal polysaccharide vaccine, 23 valent Manuel Beebe MD Work Phone: [facility] 09-07-[address] Manuel Beebe Work Phone: [facility] 08-28-2018 influenza, high dose seasonal, preservative-free Manuel Beebe MD Work Phone: [facility] Work Phone: 10-07-2017 pneumococcal conjuga te vaccine, 13 valent Manuel Beebe MD Work Phone: [facility] 06-19-2017 influenza, high dose seasonal, preservative-free Manuel Beebe MD Work Phone: [facility] Work Phone: 08-11-2016 influenza, seasonal, injectable Manuel Beebe MD Work Phone: [facility] Work Phone: 07-24-2015 influenza virus vaccine, unspecified formulation Manuel Beebe MD Work Phone: [facility] 08-15-2014 influenza virus vaccine, unspecified formulation Manuel Beebe MD Work Phone: [facility] 12-31-2013 pneumococcal polysaccharide vaccine, 23 valent Manuel Beebe MD Work Phone: [facility] 12-31-2013 tetanus toxoid, redu osei diphtheria toxoid, and acellular pertussis vaccine, adsorbed Manuel Beebe MD Work Phone: [facility] NEGATED: Highlighted row has not occurred!09-25-2021 COVID-19 vaccine, age 12+ yr ([employer] - PURPLE TOP) Manuel Beebe MD Work Phone: [facility] Payers Date Payer Category Payer Self-pay [id number] 2024 Medicaid [id number] 2023 Medicaid [id number] 2023 Medicaid [id number] 2017 Private Health Insurance AETNA A ETNA MEDICARE SUPPLEMENT [id number] 2017-Present [phone] [address] [address] [place] [address] Indemnity [id number] 2017 Private Health Insurance [id number]. [id number] 2013 Medicare MEDICARE MEDICAR E A AND B [id number] 2013-Present [phone] [address] [address] [place] [address] Medicare [id number]. [id number] 2013 Medicare [id number] [id number]. [id number] 2013 Medicare [id number] 2013 Medicare [id number] 1950 Unknown [id number] 2.16.840.1.530319.3.579.2. 903 1952 Unknown [id number] 2.16.840.1.861733.3.579.2. 903 1952 Unknown [id number] 2.16.840.1.438770.3.579.2. 903 1952 Unknown [id number] 2.16.840.1.381540.3.579.2. 903 1952 Unknown [id number] 2.16.840.1.730735.3.579.2. 903 1950 Unknown [id number] 2.16.840.1.114387.3.579.2. 903 1950 Unknown [id number] 2.16.840.1.110142.3.579.2. 903 1950 Unknown [id number] 2.16.840.1.297846.3.579.2. [address] [facility] [id number] Unknown [employer]CIAL [employer]ME RCIAL MISCELLANEOUS [id number] Effective for all dates [phone] [address] [address] [place] [address] [id number]. [id number] Unknown [id number] 2.16.840.1.433221.3.579.2. 462 Unknown [id number] 2.16.840.1.541499.3.579.2. 462 Unknown [id number] 2.16.840.1.278793.3.579.2. 462 Unknown [id number] 2.16.840.1.173726.3.579.2. 462 Unknown [id number] 2.16.840.1.454741.3.579.2. 462 Unknown [id number] 2.16.840.1.632838.3.579.2. 462 Unknown [id number] 2.16.840.1.278474.3.579.2. 462 Unknown [id number] 2.16.840.1.622720.3.579.2. 462 Unknown [id number] 2.16.840.1.412644.3.579.2. 462 Unknown [id number] 2.16.840.1.655746.3.579.2. 462 Unknown [id number] 2.16.840.1.219905.3.579.2. 462 Unknown [id number] 2.16.840.1.097700.3.579.2. 462 Unknown [id number] 2.16.840.1.190749.3.579.2. 462 Unknown [id number] 2.16.840.1.453704.3.579.2. 462 Unknown [id number] 2.16.840.1.997258.3.579.2. 462 Unknown [id number] 2.16.840.1.583303.3.579.2. 462 Unknown [id number] 2.16.840.1.989535.3.579.2. 462 Unknown [id number] 2.16.840.1.645082.3.579.2. 462 Unknown [id number] 2.16.840.1.348885.3.579.2. 462 Unknown [id number] 2.16.840.1.975033.3.579.2. 462 Unknown [id number] 2.16.840.1.697561.3.579.2. 462 Unknown [id number] 2.16.840.1.720177.3.579.2. 462 Unknown [id number] 2.16840.1.469649.3.579.2. 462 Unknown [id number] 2.16840.1.418559.3.579.2. 462 Unknown [id number] 2.16840.1.148054.3.579.2. 462 Unknown [id number] 2.840.1.896525.3.579.2. 462 Social History Date Type Detail Facility Start: 12-31-2013 End: 08-28-2024 Tobacco smoking status NHIS Ex-smoker [facility] Work Phone: Start: 1965 End: 07-20-2013 History of tobacco use Current smoker [facility] Work Phone: Start: 12-31-2013 End: 03-09-2023 Cigarettes smoked current (pack per day) - Reported 0.5 [facility] Start: 12-31-2013 End: 08-28-2024 Tobacco use and exposure Smokeless tobacco non-user [facility] Work Phone: Start: 01-12-2022 End: 05-16-2025 Alcohol intake Current non-drinker of alcohol (finding) [facility] Start: 04-01-2020 History SDOH Social Connections Phone 4 [facility] Start: 04-01-2020 History SDOH Social Connections Get Together 3 [facility] Start: 04-01-2020 History SDOH Social Connections Meetings 1 [facility] Start: 04-01-2020 History SDOH Stress 2 [facility] Start: 04-01-2020 History SDOH Financial 5 [facility] Start: 12-31-2013 End: 09-02-2022 Tobacco Comment Had smoked 40 years 1 PPD every 2 to 3 days (about 20 pack years) [facility] Start: 1950 Sex Assigned At Not on file [facility] Start: 12-13-2021 End: 10-01-2022 Exposure to SARS-CoV-2 (event) Not sure [facility] Start: 02-10-2022 End: 10-13-2023 Tobacco smoking status NHIS Tobacco smoking consumption unknown [facility] Work Phone: Start: 01-20-2021 None [facility] Start: 01-20-2021 Alone [facility] Start: 01-20-2021 Cigarettes [facility] Start: 1950 Sex Assigned At Male [facility] Start: 02-10-2022 Tobacco smoking stat us INIS Never smoked tobacco [facility] Start: 02-15-2022 End: 06-15-2022 Alcohol intake Current drinker of alcohol (finding) [facility] Start: 02-10-2022 History SDOH Alcohol Comment formerly drank, not in many years [facility] Start: 1965 End: 07-20-2013 History of tobacco use Cigarette Smoker [facility] Work Phone: Start: 04-01-2020 End: 03-09-2023 Social connection and isolation panel [facility] Attends [employer] Not on file [facility] Do you feel stress - tense, restless, nervous, or anxious, or unable to sleep at night because your mind is troubled all the time - these days [OSQ] Only a little [facility] At any time in the p ast 12 months, were you homeless or living in correction [including now]? No [facility] (I/We) worried whebernardino er (my/our) food would run out before (I/we) got money to buy more. Never true [facility] Start: 02-06-2025 Sex Male (finding) [facility] Medical Equipment Procedure Code Equipment Code Equipment Origin al Text Equipment Identifier Dates [place] [employer] Hide Spreader-D [id number] Start: 10-12-2019 Red Ar[employer] [id number] Start: 10-12-2019 Omero laird [id number] Start: 10-12-2019 Omero laird [id number] Start: 10-12-2019 [id number] Start: 07-06-2017 End: 08-28-2024 Comment on above: Use as instructed to check blood sugar twice daily. Insulin Dep? Yes E11.9 DM 2 Please fill with brand covered by patient's insurance. Use one needle per d ose. One per day. DX E11.9 Insulin Yes Use as instructed to check blood sugar twice daily .Insulin Dep? Yes E11.9 DM 2 Use as instructed to check blood sugar twice daily and as needed.Insulin Dep? Yes E11.9 DM 2 Test Two times a day . Insulin Dep? Yes E11.9 DM 2 Check 2 to 3 times d aily as directed. E11.9, Z79.4 Insulin: yes Use as directed to c heck blood sugar 2 to 3 times a day Test blood sugar(s) 2 to 3 times daily. Dx: Type 2 DM - Controlled E11.9 Insulin: Yes Use one needle per d ose. One per day. [employer] ICD FDA Start: 10-12-2019 [employer] ICD FDA Start: 10-12-2019 [employer] ICD FDA Start: 10-12-2019 HYDROGEL, 10ML FDA Start: 01-06-2022 MARKERS, FIDUCIA L GOLD FDA Start: 01-06-2022 Stem 132deg Sz8 Fem Accolade Ii - [id number] FDA Start: 02-13-2022 [employer] ICD FDA Start: 10-12-2019 [employer] INOGEN ICD FDA Start: 10-12-2019 [employer] IN[employer] ICD FDA Start: 10-12-2019 HYDROGEL, 10ML FDA Start: 01-06-2022 MARKERS, FIDUCIA L GOLD FDA Start: 01-06-2022 [employer] INOGEN ICD FDA Start: 10-12-2019 [employer] INOGEN ICD FDA Start: 10-12-2019 [employer] IN[employer] ICD FDA Start: 10-12-2019 HYDROGEL, 10ML FDA Start: 01-06-2022 MARKERS, FIDUCIA L GOLD FDA Start: 01-06-2022 [employer] INOGEN ICD FDA Start: 10-12-2019 [employer] IN[employer] ICD FDA Start: 10-12-2019 [employer] INOGEN ICD FDA Start: 10-12-2019 HYDROGEL, 10ML FDA Start: 01-06-2022 MARKERS, FIDUCIA L GOLD FDA Start: 01-06-2022 [employer] INOGEN ICD FDA Start: 10-12-2019 [employer] INOGEN ICD FDA Start: 10-12-2019 [employer] ICD FDA Start: 10-12-2019 HYDROGEL, 10ML FDA Start: 01-06-2022 MARKERS, FIDUCIA L GOLD FDA Start: 01-06-2022 Icd Lead-10/12/2019 [id number] Start : 10-12-2019 Icd Lead-10/18/2019 [id number] Start: 10-18-2019 Comment on above: Description: POSTION RV APEX Icd-10/12/2019 [id number] Start: 10-12-2019 Comment on above: Description: POSTION LV [employer] ICD FDA Start: 10-12-2019 [employer] ICD FDA Start: 10-12-2019 [employer] ICD FDA Start: 10-12-2019 HYDROGEL, 10ML FDA Start: 01-06-2022 MARKERS, FIDUCIA L GOLD FDA Start: 01-06-2022 [employer] INOGEN ICD FDA Start: 10-12-2019 [employer] IN[employer] ICD FDA Start: 10-12-2019 [employer] ICD FDA Start: 10-12-2019 HYDROGEL, 10ML FDA Start: 01-06-2022 MARKERS, FIDUCIA L GOLD FDA Start: 01-06-2022 [employer] INOGEN ICD FDA Start: 10-12-2019 [employer] INOG[employer] ICD FDA Start: 10-12-2019 [employer] ICD FDA Start: 10-12-2019 HYDROGEL, 10ML FDA Start: 01-06-2022 MARKERS, FIDUCIA L GOLD FDA Start: 01-06-2022 [employer] INOGEN ICD FDA Start: 10-12-2019 [employer] INOGEN ICD FDA Start: 10-12-2019 [employer]OG[employer] ICD FDA Start: 10-12-2019 HYDROGEL, 10ML FDA Start: 01-06-2022 MARKERS, FIDUCIA L GOLD FDA Start: 01-06-2022 [employer] INOGEN ICD FDA Start: 10-12-2019 [employer] INOG[employer] ICD FDA Start: 10-12-2019 [employer] INOG[employer] ICD FDA Start: 10-12-2019 HYDROGEL, 10ML FDA Start: 01-06-2022 MARKERS, FIDUCIA L GOLD FDA Start: 01-06-2022 [employer] INOGEN ICD FDA Start: 10-12-2019 [employer] INOGEN ICD FDA Start: 10-12-2019 [employer] INOGEN ICD FDA Start: 10-12-2019 HYDROGEL, 10ML FDA Start: 01-06-2022 MARKERS, FIDUCIA L GOLD FDA Start: 01-06-2022 [employer] INOGEN ICD FDA Start: 10-12-2019 [employer] INOGEN ICD FDA Start: 10-12-2019 [employer] INOGEN ICD FDA Start: 10-12-2019 HYDROGEL, 10ML FDA Start: 01-06-2022 MARKERS, FIDUCIA L GOLD FDA Start: 01-06-2022 [employer] INOGEN ICD FDA Start: 10-12-2019 [employer] INOGEN ICD FDA Start: 10-12-2019 [employer] INOG[employer] ICD FDA Start: 10-12-2019 HYDROGEL, 10ML FDA Start: 01-06-2022 MARKERS, FIDUCIA L GOLD FDA Start: 01-06-2022 [employer] INOGEN ICD FDA Start: 10-12-2019 [employer] INOGEN ICD FDA Start: 10-12-2019 [employer] INOGEN ICD FDA Start: 10-12-2019 HYDROGEL, 10ML FDA Start: 01-06-2022 MARKERS, FIDUCIA L GOLD FDA Start: 01-06-2022 [employer] INOGEN ICD FDA Start: 10-12-2019 [employer] INOGEN ICD FDA Start: 10-12-2019 [employer] INOG[employer] ICD FDA Start: 10-12-2019 HYDROGEL, 10ML FDA Start: 01-06-2022 MARKERS, FIDUCIA L GOLD FDA Start: 01-06-2022 [employer] INOG[employer] ICD FDA Start: 10-12-2019 [employer] INOG[employer] ICD FDA Start: 10-12-2019 [employer] ICD FDA Start: 10-12-2019 HYDROGEL, 10ML FDA Start: 01-06-2022 MARKERS, FIDUCIA L GOLD FDA Start: 01-06-2022 [employer] INOG[employer] ICD FDA Start: 10-12-2019 [employer] INOG[employer] ICD FDA Start: 10-12-2019 [employer]OG[employer] ICD FDA Start: 10-12-2019 HYDROGEL, 10ML FDA Start: 01-06-2022 MARKERS, FIDUCIA L GOLD FDA Start: 01-06-2022 [employer] INOG[employer] ICD FDA Start: 10-12-2019 [employer] INOGEN ICD FDA Start: 10-12-2019 [employer] ICD FDA Start: 10-12-2019 HYDROGEL, 10ML FDA Start: 01-06-2022 MARKERS, FIDUCIA L GOLD FDA Start: 01-06-2022 FDA Start: 10-12-2019 FDA Start: 10-12-2019 FDA Start: 10-12-2019 FDA Start: 01-06-2022 FDA Start: 01-06-2022 FDA Start: 10-12-2019 FDA Start: 10-12-2019 FDA Start: 10-12-2019 FDA Start: 01-06-2022 FDA Start: 01-06-2022 FDA Start: 10-12-2019 FDA Start: 10-12-2019 FDA Start: 10-12-2019 FDA Start: 01-06-2022 FDA Start: 01-06-2022 FDA Start: 10-12-2019 FDA Start: 10-12-2019 FDA Start: 10-12-2019 FDA Start: 01-06-2022 FDA Start: 01-06-2022 FDA Start: 10-12-2019 FDA Start: 10-12-2019 FDA Start: 10-12-2019 FDA Start: 01-06-2022 FDA Start: 01-06-2022 FDA Start: 10-12-2019 FDA Start: 10-12-2019 FDA Start: 10-12-2019 FDA Start: 01-06-2022 FDA Start: 01-06-2022 FDA Start: 10-12-2019 FDA Start: 10-12-2019 FDA Start: 10-12-2019 FDA Start: 01-06-2022 FDA Start: 01-06-2022 FDA Start: 10-12-2019 FDA Start: 10-12-2019 FDA Start: 10-12-2019 FDA Start: 01-06-2022 FDA Start: 01-06-2022 FDA Start: 10-12-2019 FDA Start: 10-12-2019 FDA Start: 10-12-2019 FDA Start: 01-06-2022 FDA Start: 01-06-2022 FDA Start: 10-12-2019 FDA Start: 10-12-2019 FDA Start: 10-12-2019 FDA Start: 01-06-2022 FDA Start: 01-06-2022 FDA Start: 10-12-2019 FDA Start: 10-12-2019 FDA Start: 10-12-2019 FDA Start: 01-06-2022 FDA Start: 01-06-2022 FDA Start: 10-12-2019 FDA Start: 10-12-2019 FDA Start: 10-12-2019 FDA Start: 01-06-2022 FDA Start: 01-06-2022 [employer] ICD FDA Start: 10-12-2019 [employer] INOG[employer] ICD FDA Start: 10-12-2019 [employer] ICD FDA Start: 10-12-2019 HYDROGEL, 10ML FDA Start: 01-06-2022 MARKERS, FIDUCIA L GOLD FDA Start: 01-06-2022 [employer] ICD FDA Start: 10-12-2019 [employer] ICD FDA Start: 10-12-2019 [employer] ICD FDA Start: 10-12-2019 HYDROGEL, 10ML FDA Start: 01-06-2022 MARKERS, FIDUCIA L GOLD FDA Start: 01-06-2022 [employer] INOG[employer] ICD FDA Start: 10-12-2019 [employer] ICD FDA Start: 10-12-2019 [employer] ICD FDA Start: 10-12-2019 HYDROGEL, 10ML FDA Start: 01-06-2022 MARKERS, FIDUCIA L GOLD FDA Start: 01-06-2022 [employer] ICD FDA Start: 10-12-2019 [employer] ICD FDA Start: 10-12-2019 [employer] ICD FDA Start: 10-12-2019 HYDROGEL, 10ML FDA Start: 01-06-2022 MARKERS, FIDUCIA L GOLD FDA Start: 01-06-2022 [employer] ICD FDA Start: 10-12-2019 [employer] ICD FDA Start: 10-12-2019 [employer] ICD FDA Start: 10-12-2019 HYDROGEL, 10ML FDA Start: 01-06-2022 MARKERS, FIDUCIA L GOLD FDA Start: 01-06-2022 [employer] ICD FDA Start: 10-12-2019 [employer] ICD FDA Start: 10-12-2019 [employer] ICD FDA Start: 10-12-2019 HYDROGEL, 10ML FDA Start: 01-06-2022 MARKERS, FIDUCIA L GOLD FDA Start: 01-06-2022 [id number] Inogen X4 [id number] Start: 10-12-2019 [employer] ICD FDA Start: 10-12-2019 [employer] ICD FDA Start: 10-12-2019 [employer] ICD FDA Start: 10-12-2019 HYDROGEL, 10ML FDA Start: 01-06-2022 MARKERS, FIDUCIA L GOLD FDA Start: 01-06-2022 [employer] ICD FDA Start: 10-12-2019 [employer] ICD FDA Start: 10-12-2019 [employer] ICD FDA Start: 10-12-2019 HYDROGEL, 10ML FDA Start: 01-06-2022 MARKERS, FIDUCIA L GOLD FDA Start: 01-06-2022 [employer] ICD FDA Start: 10-12-2019 [employer] ICD FDA Start: 10-12-2019 [employer] ICD FDA Start: 10-12-2019 HYDROGEL, 10ML FDA Start: 01-06-2022 MARKERS, FIDUCIA L GOLD FDA Start: 01-06-2022 [employer] ICD FDA Start: 10-12-2019 [employer] ICD FDA Start: 10-12-2019 [employer] ICD FDA Start: 10-12-2019 HYDROGEL, 10ML FDA Start: 01-06-2022 MARKERS, FIDUCIA L GOLD FDA Start: 01-06-2022 Goals Date Patient Goal Desired Activity /State Personal health goal Personal health goal Personal health goal Comment on above: Formatting of this n ote might be different from the original. Goal : To stay out of the hospital Personal health goal Comment on above: Formatting of this n ote might be different from the original. Remain Healthy Personal health goal Comment on above: Formatting of this n ote might be different from the original. Patient has the following Congestive Heart Failure Goals: Two PCP Visits annually CHF Education given and reviewed with patient --sent on 09/23/23 CHF MATT education provided - Heart Failure [facility] Patient will meet these goals by 09/23/24 (describe interventions done by PCC) Formatting of this n ote might be different from the original. Patient has the following Congestive Heart Failure Goals: Two PCP Visits annually CHF Education given and reviewed with patient --sent on 09/23/23 CHF MATT education provided - Heart Failure [facility] Patient will meet these goals by 09/23/24 (describe interventions done by PCC) 12/05/23 Pt's Goal: Improved Ambulation Comment on above: Formatting of this n ote might be different from the original. Goal : To stay out of the hospital Comment on above: Formatting of this n ote might be different from the original. Remain Healthy Functional Status Date Assessment Result Facility 06-26-2023 Functional status Chair;Bedside Commode;Passive Range of Motion;Active Range of Motion;Bedpan [facility] Work Phone: 04-25-2023 Functional status Ambulates [facility] Work Phone: 04-16-2023 Functional status Bedrest [facility] Work Phone: 04-12-2023 Functional status Ambulates;Chair [facility] Work Phone: 04-27-2022 Functional status Chair [facility] Work Phone: 04-14-2022 Functional status Bedrest [facility] Work Phone: 04-13-2022 Functional status Standard Walker [facility] Work Phone: 04-12-2022 Functional status Ambulates [facility] Work Phone: 04-29-2015 Are you deaf, or do you have serious difficulty hearing No 04/29/2015 10:51 AM EDT Destiny Meng [facility] 04-29-2015 Are you blind, or do you have serious difficulty seeing, even when wearing glasses No 04/29/2015 10:51 AM EDT Destiny Meng [facility] 04-29-2015 Do you have serious difficulty walking or climbing stairs No 04/29/2015 10:51 AM EDDestiny Zhu [facility] 04-29-2015 Do you have difficul ty dressing or bathing No 04/29/2015 10:51 AM EDT Destiny Meng [facility] 04-29-2015 Because of a physica l, mental, or emotional condition, do you have difficulty doing errands alone such as visiting a physician's office or shopping No 04/29/2015 10:51 AM EDT Destiny Meng [facility] Mental Status Date Assessment Result Facility 06-26-2023 Cognitive function Voice/Name [facility] Work Phone: 06-21-2023 Cognitive function Voice/Name [facility] Work Phone: 04-25-2023 Cognitive function Voice/Name [facility] Work Phone: 04-23-2023 Cognitive function Level Of Cons ciousness Drowsy [facility] Work Phone: 04-16-2023 Cognitive function Voice/Name [facility] Work Phone: 04-13-2023 Cognitive function Level Of Cons ciousness Awake;Alert;Appropriate;Fol lows Commands [facility] Work Phone: 04-12-2023 Cognitive function Voice/Name [facility] Work Phone: 04-10-2023 Cognitive function Voice/Name [facility] Work Phone: 06-07-2022 Cognitive function Awake;Alert;F ollows Commands [facility] Work Phone: 04-27-2022 Cognitive function Voice/Name [facility] Work Phone: 04-14-2022 Cognitive function Voice/Name [facility] Work Phone: 04-11-2022 Cognitive function Voice/Name [facility] Work Phone: 04-10-2022 Cognitive function Cooperative [facility] Work Phone: 03-31-2022 Cognitive function Voice/Name [facility] Work Phone: 01-06-2022 Cognitive function Voice/Name [facility] Work Phone: 04-29-2015 Because of a physica l, mental, or emotional condition, do you have serious difficulty concentrating, remembering, or making decisions No 04/29/2015 10:51 AM EDT Destiny Meng Cma No [facility] Clinical Notes 02-24-2017 to 05-16-2025 El Lucio MD - 05/16/2025 4:47 PM EDTSaida Soriano - 05/16/2025 3:05 PM EDTShara Johnston - 05/16/2025 2:48 PM EDTTelephone Aly - Marilynn Cantu - 03/07/2025 9:12 AM EDT Note Date & Type Note Facility 05-16-2025 Note HNO ID: [id number] Author: EL LUCIO MD Service: ? Author Type: Physician Type: Progress Notes Filed: 05/16/2025 17:08 Note Text: Consultation requested by Dr. Narvaez for an opinion regarding right groin bulge. My final recommendations will be communicated back to the requesting physician by way of shared medical record or letter via US mail. Steph Baumann is a 74 year old male who presents with a large right inguinal hernia likely exacerbated by ascites from cirrhosis and CHF. He's had severe pain and even concern for partial obstructive symptoms with emesis. I'll message Dr. Loredo to make sure he's optimized and after discussing risks and benefits we'll plan for an elective repair in order to avoid an emergent presentation. We also discussed non-op management but his quality of life is so limited by this that he is willing to accept the risk of surgery. His POA is a friend of the family from [place] and the decision clearly weighs heavily on her so she understands the risks but also wants to give him agency in the decision and he clearly wants to move forward. Given his comorbidities we'll plan for at least a 2 night hospital stay before return to his SNF where he lives. El Lucio MD I have seen and evaluated the patient and discussed the case with the resident physician. I agree with the assessment and plan as documented in the resident?s note including a ROS that was reviewed and negative other than what was indicated in our notes. Patient consented for study? Not applicable [facility] 05-16-2025 History of Present illness Narrative Consultation requested by Dr. Narvaez for an opinion regarding right groin bulge. My final recommendations will be communicated back to the requesting physician by way of shared medical record or letter via US mail. Steph Baumann is a 74 year old male who presents with a large right inguinal hernia likely exacerbated by ascites from cirrhosis and CHF. He's had severe pain and even concern for partial obstructive symptoms with emesis. I'll message Dr. Loredo to make sure he's optimized and after discussing risks and benefits we'll plan for an elective repair in order to avoid an emergent presentation. We also discussed non-op management but his quality of life is so limited by this that he is willing to accept the risk of surgery. His POA is a friend of the family from [place] and the decision clearly weighs heavily on her so she understands the risks but also wants to give him agency in the decision and he clearly wants to move forward. Given his comorbidities we'll plan for at least a 2 night hospital stay before return to his SNF where he lives. El Lucio MD I have seen and evaluated the patient and discussed the case with the resident physician. I agree with the assessment and plan as documented in the resident s note including a ROS that was reviewed and negative other than what was indicated in our notes. Patient consented for study? Not applicable Images from the original note were not included. CLINIC NOTE Steph Baumann [id number] SUBJECTIVE: Steph Baumann is a 74 year old male with PMHx of HTN, afib (on eiliquis), CHF s/p ICD, T2DM, liver cirrhosis, portal HTN, ALBINO, BPH who presents to clinic for evaluation of right inguinal hernia on 05/16/[address] Lucio. He was last seen by Dr. Lucio on 03/09/2021 for hernia, but was asymptomatic at the time and planned for watchful waiting especially I/s/o ascites and portal hypertension. Today, patient is endorsing rapid enlargement of right inguinal bulge particularly within the last few months and progressive pain with movement. No longer reducible since ~2 years ago. Ascites and portal hypertension are well-controlled. OBJECTIVE: BP 113/64 Pulse 70 Temp 36.4 C (97.5 F) (Temporal) Ht 175.3 cm (5' 9") Wt 78.1 kg (172 lb 3.2 oz) BMI 25.43 kg/m General: Alert, no acute distress, appears well-nourished Cardiac: warm and well perfused Pulm: breathing comfortably on room air Abdomen: soft, non-tender, non-distended, large tender right inguinal bulge appreciated on exam ASSESSMENT AND PLAN Steph Baumann is a 74 year old male with PMHx of HTN, afib (on eiliquis), CHF s/p ICD, T2DM, liver cirrhosis, portal HTN, ALBINO, BPH who presents to clinic for evaluation of right inguinal hernia on 05/16/[address] Lucio. Discussed the risks and benefits of undergoing inguinal hernia repair vs watchful waiting I/s/o multiple comorbid conditions including ascites, liver cirrhosis, and CHF. Patient demonstrated risks and benefits of procedure and consented to open inguinal hernia repair due to progressive symptoms. Will contact Dr. Loredo for optimization of diuretics prior to surgery. PLAN - Will reach out to Dr. Loredo regarding optimization of diuretics prior to procedure - Office will reach out to schedule procedure Saida Soriano, MS4 General Surgery May 16, 2025 3:06 PM Hernia Team Emiliano (Otto Kendrick Rosenblatt): [phone] [address] (Ce Bhatia Petro): [phone] After 6PM + weekends: [phone] What is the reason for your visit today? EST Who is your referring physician? Dr. Lucio Are you having poor oral intake? NO Have you had unintentional weight loss of 15 lbs/7 Kg in the last 3-6 months? NO Bowels: regular Wound: clean & dry Temperature: No Drains: No documented in this encounter [facility] 05-16-2025 Note HNO ID: [id number] Author: ?, ?, ? Service: ? Author Type: ? Type: Progress Notes Filed: 05/16/2025 16:51 Note Text: CLINIC NOTE Steph Baumann [id number] SUBJECTIVE: Steph Baumann is a 74 year old male with PMHx of HTN, afib (on eiliquis), CHF s/p ICD, T2DM, liver cirrhosis, portal HTN, ALBINO, BPH who presents to clinic for evaluation of right inguinal hernia on 05/16/[address] Lucio. He was last seen by Dr. Lucio on 03/09/2021 for hernia, but was asymptomatic at the time and planned for watchful waiting especially I/s/o ascites and portal hypertension. Today, patient is endorsing rapid enlargement of right inguinal bulge particularly within the last few months and progressive pain with movement. No longer reducible since ~2 years ago. Ascites and portal hypertension are well-controlled. OBJECTIVE: BP 113/64 Pulse 70 Temp 36.4 ?C (97.5 ?F) (Temporal) Ht 175.3 cm (5' 9") Wt 78.1 kg (172 lb 3.2 oz) BMI 25.43 kg/m? General: Alert, no acute distress, appears well-nourished Cardiac: warm and well perfused Pulm: breathing comfortably on room air Abdomen: soft, non-tender, non-distended, large tender right inguinal bulge appreciated on exam ASSESSMENT AND PLAN Steph Baumann is a 74 year old male with PMHx of HTN, afib (on eiliquis), CHF s/p ICD, T2DM, liver cirrhosis, portal HTN, ALBINO, BPH who presents to clinic for evaluation of right inguinal hernia on 05/16/[address] Lucio. Discussed the risks and benefits of undergoing inguinal hernia repair vs watchful waiting I/s/o multiple comorbid conditions including ascites, liver cirrhosis, and CHF. Patient demonstrated risks and benefits of procedure and consented to open inguinal hernia repair due to progressive symptoms. Will contact Dr. Loredo for optimization of diuretics prior to surgery. PLAN - Will reach out to Dr. Loredo regarding optimization of diuretics prior to procedure - Office will reach out to schedule procedure Saida Soriano, MS4 General Surgery May 16, 2025 3:06 PM Hernia Team Emiliano (Otto Kendrick Rosenblatt): [phone] [address] (Ce Bhatia Petro): [phone] After 6PM + weekends: [phone] [facility] 05-16-2025 Note HNO ID: [id number] Author: ?, ?, ? Service: ? Author Type: ? Type: Progress Notes Filed: 05/16/2025 17:08 Note Text: What is the reason for your visit today? EST Who is your referring physician? Dr. Lucio Are you having poor oral intake? NO Have you had unintentional weight loss of 15 lbs/7 Kg in the last 3-6 months? NO Bowels: regular Wound: clean AND dry Temperature: No Drains: No [facility] 03-07-2025 Telephone encounter Note Bob called back and was given the below information Marilynn Cantu [facility] 03-07-2025 Miscellaneous Notes Bob called back and was given the below information Marilynn Cantu I left a message for Bob asking her to check the patient's MyChart messages. Thania Santos LPN Can let his friend Bob know that his PSA remains undetectable. documented in this encounter [facility] 03-07-2025 Telephone encounter Note I left a message for Bob asking her to check the patient's MyChart messages. Thania Santos LPN [facility] 03-07-2025 Progress note Formatting of t his note might be different from the original. Can let his friend Bob know that his PSA remains undetectable. [facility] Work Phone: 03-06-2025 Note HNO ID: [id number] Author: GLENDA URENA LPN Service: ? Author Type: LICENSED NURSE Type: Progress Notes Filed: 03/06/2025 11:57 Note Text: Patient here for injection of Prolia given SQ in right arm and Eligard given SQ in LLQ. Patient tolerated well. See OV with Dr Swift today. Glenda Urena LPN [facility] 03-06-2025 History of Present illness Narrative Patient here for injection of Prolia given SQ in right arm and Eligard given SQ in LLQ. Patient tolerated well. See OV with Dr Swift today. Glenda Urena LPN documented in this encounter [facility] 03-06-2025 Note Addended by: JONNATHAN SWIFT on: 03/06/2025 11:24 AM Modules accepted: Orders [facility] 03-06-2025 Miscellaneous Notes Addended by: JONNATHAN SWIFT on: 03/06/2025 11:24 AM Modules accepted: Orders documented in this encounter [facility] 03-06-2025 Note HNO ID: [id number] Author: JONNATHAN SWIFT DO Service: ? Author Type: Physician Type: Progress Notes Filed: 03/06/2025 11:18 Note Text: Oncologic problem(s): 1) Castrate sensitive prostate cancer. HPI: The patient is a 74-year-old male with a past medical history significant [...] biopsy on 11/12/2021. All 4 cores demonstrated Lottie grade 7, 2 of the cores were [...] 10/21/2022 and again on 01/27/2023 and 09/13/2023. Per initial office consultation: Insurance no longer covers Dr. Saravia. Seen by Rustam Masterson PA-C. Referred here. Most recent injection was about 4 months ago. On bicalutamide. No diarrhea. On lactulose BID for cirrhosis. Here today with POElizabeth from [place] (daughter's friend). Visits him every 2 weeks. Diagnosed with Parkinsons in April. Requires wheelchair. Was independent prior to that. Living at [facility]. Recently started having dysuria "deep in" when starts urinating. No gross hematuria. [place] Only pain is right hip and low back if sits too long. Right hip pain has been evaluated by his orthopedic several times as well as the low back pain. No clear etiology. Presents for ongoing oncologic management. Interim history: He is here today with Bob his friend and POA who accompanies him to all of his medical visits. Since I last saw him, no significant changes. Continues to have right hip pain and was told by orthopedic surgery most likely due to orthopedic surgery most likely due to nerve damage from previous surgery. He is seeing CPM. Otherwise his left hand has spasms. Has spasms. No MS pain otherwise. Denies jaw pain. Wears a diaper for incontinence but no complaints of dysuria. 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 04/13/2017. Hemiplegia and hemip (more content not included)... [facility] 03-06-2025 History of Present illness Narrative Oncologic problem(s): 1) Castrate sensitive prostate cancer. HPI: The patient is a 74-year-old male with a past medical history significant [...] biopsy on 11/12/2021. All 4 cores demonstrated Mathtew grade 7, 2 of the cores were [...] 10/21/2022 and again on 01/27/2023 and 09/13/2023. Per initial office consultation: Insurance no longer covers Dr. Saravia. Seen by Rustam Masterson PA-C. Referred here. Most recent injection was about 4 months ago. On bicalutamide. No diarrhea. On lactulose BID for cirrhosis. Here today with EDGAR from [place] (daughter's friend). Visits him every 2 weeks. Diagnosed with Parkinsons in April. Requires wheelchair. Was independent prior to that. Living at [facility]. Recently started having dysuria "deep in" when starts urinating. No gross hematuria. [place]. Only pain is right hip and low back if sits too long. Right hip pain has been evaluated by his orthopedic several times as well as the low back pain. No clear etiology. Presents for ongoing oncologic management. Interim history: He is here today with Bob his friend and POA who accompanies him to all of his medical visits. Since I last saw him, no significant changes. Continues to have right hip pain and was told by orthopedic surgery most likely due to orthopedic surgery most likely due to nerve damage from previous surgery. He is seeing CPM. Otherwise his left hand has spasms. Has spasms. No MS pain otherwise. Denies jaw pain. Wears a diaper for incontinence but no complaints of dysuria. 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 Gonzáles intermediate current use of insulin (HCC) Metabolic encephalopathy Muscle wasting and atrophy, not elsewhere classified, unspecified site ALBINO (obstructive sleep apnea) BiPAP, [facility] 07/09/2014. Consistently compliant 04/14/2017. TO Other malaise Other symbolic dysfunctions Parkinson's disease (HCC) Personal history of transient ischemic attack (TIA), [...] SURGICAL HISTORY OF 10/2019 Placement of BiVICD ALLERGIES Allergen Reactions Metformin Diarrhea Even low dose caused diarrhea Oxycodone-Acetamino* Unknown Current Outpatient Medications Medication Sig BYDUREON BCISE 2 mg/0.85 mL injection Inject 2 mg subcutaneously one time a week. diclofenac (VOLTAREN ARTHRITIS PAIN) 1 % topical gel Apply one application to right hip topically every 12 hours as needed for pain. denosumab (PROLIA) 60 mg/mL Injection to be administered once every 6 months lactulose 20 gram/30 mL solution Take 45 mL by mouth three times a day. lisinopril (ZESTRIL) 5 mg tablet Take 5 mg by mouth once daily. aluminum-magnesium hydroxide-simethicone (MAALOX,MYLANTA,MAG-AL PLUS) 200-200-20 mg/5 mL suspension Take 30 mL by mouth every 4 hours as needed. bisacodyl (DULCOLAX) 10 mg supp 10 mg by RECTAL route once daily as needed for constipation. sodium phosphate,mono-dibasic (FLEET ENEMA RECTAL) 1 Enema by RECTAL route as needed. dextrose (GLUCOSE GEL ORAL) Take 1 Dose by mouth as needed. GUAIFENESIN ORAL Take 10 mL by mouth every 4 hours as needed. magnesium hydroxide (MILK OF MAGNESIA ORAL) Take 30 mL by mouth as needed. methyl salicylate-menthol (MUSCLE RUB) 15-10 % topical cream Apply to right hip topically in the morning for pain. potassium chloride ER (KLOR-CON) 20 mEq tablet Take 20 mEq by mouth once daily. cholecalciferol (VITAMIN D-3) 50 mcg (2,000 unit) tablet Take 2,000 Units by mouth once daily. sertraline (ZOLOFT) 50 mg tablet Take 50 mg by mouth once daily. acetaZOLAMIDE (DIAMOX) 250 mg tablet Take 250 mg by mouth two times a day. docusate sodium (COLACE) 100 mg capsule Take 100 mg by mouth two times a day. pantoprazole DR (PROTONIX) 40 mg tablet Take 40 mg by mouth two times a day. GLUCAGON EMERGENCY KIT, HUMAN, INJECTION Inject 1 mL subcutaneously as needed. Sennosides 8.6 mg cap Take 17.2 mg by mouth daily at bedtime. traMADol (ULTRAM) 50 mg tablet Take 50 mg by mouth every 6 hours as needed for pain. carvedilol (COREG) 3.125 mg tablet Take 1 tablet by mouth twice daily. ondansetron orally disintegrating (ZOFRAN ODT) 4 mg disintegrating tablet Take 1 tablet by mouth every 8 hours as needed for nausea/vomiting. baclofen (LIORESAL) 20 mg tablet Take 20 mg by mouth three times a day. apixaban (ELIQUIS) 5 mg tab(s) Take 1 tablet by mouth twice daily. bumetanide (BUMEX) 1 mg tablet Take 1 tablet by mouth once daily. insulin glargine (BASAGLAR KWIKPEN U-100 INSULIN) 100 unit/mL (3 mL) Inject 27 Units subcutaneously daily at bedtime. Adjust dose as directed (Patient taking differently: Inject 8 Units subcutaneously daily at bedtime. Adjust dose as directed) carbidopa-levodopa (SINEMET 25-100) 25-100 mg per tablet Take 2 tablets by mouth three times a day. bicalutamide (CASODEX) 50 mg tablet Take 50 mg by mouth once daily. albuterol HFA (VENTOLIN HFA) 90 mcg/actuation inhaler Inhale 2 Puffs as instructed every 6 hours as needed for wheezing/shortness of breath. nitroglycerin sublingual (NITROQUICK) 0.4 mg SL tablet Dissolve 1 tablet under the tongue every 5 minutes as needed for Chest Pain. CPAP BiPAP @ 9/13 cm of water with humidification. lifetime supplies. Dx ALBINO Multivitamin ORAL capsule Take 1 capsule by mouth once daily. insulin aspart U-100 (NOVOLOG) 100 unit/mL Inject subcutaneously three times a day before meals. Uses sliding scale (Patient not taking: Reported on 02/13/2025) dulaglutide (TRULICITY) 3 mg/0.5 mL pen injector Inject 3 mg subcutaneously one time a week. Tuesday (Patient not taking: Reported on 02/13/2025) INSULIN LISPRO SUBCUTANEOUS Inject subcutaneously. Per sliding scale (Patient not taking: Reported on 02/13/2025) loratadine (CLARITIN) 10 mg tablet Take 1 tablet by mouth once daily as needed. (Patient not taking: Reported on 02/13/2025) fluticasone-vilanterol (BREO ELLIPTA) 100-25 mcg/dose inhaler Inhale 1 Inhalation as instructed once daily. (Patient not taking: Reported on 02/13/2025) COMPOUNDED PRESCRIPTION Four point cane Dx: Z86.73, R53.1 No current facility-administered medications for this visit. Facility-Administered Medications Ordered in Other Visits Medication Dose Route Frequency leuprolide 22.5 mg subcutaneous syringe (ELIGARD) 22.5 mg SUBCUTANEOUS ONCE Social History Tobacco Use Smoking status: Former Current packs/day: 0.00 Average packs/day: 1 pack/day for 46.0 years (46.0 ttl pk-yrs) Types: Cigarettes Start date: 07/20/1967 Quit date: 07/20/2013 Years since quittin.6 Smokeless tobacco: Never Vaping Use Vaping status: Never Used Substance Use Topics Alcohol use: No Drug use: No Comment: Remote drugs, quit 1994. Family History Problem Relation Age of Onset Diabetes Mother Coronary Artery Disease Mother Thyroid Mother thinks "over active" Diabetes Child daughter ROS: Constitutional: No fever. No drenching night sweats. Good appetite. Naps daily. Neuro: Parkinson's. HEENT: No recent change in voice, vision or hearing. Resp: No cough, wheeze of hemoptysis. No shortness of breath at rest. CVS: No exertional chest pain, PND or orthopnea. No extremity swelling/edema. No symptoms of claudication. No painful or tender varicose veins. GI: No dysgeusia. No symptoms of stomatitis. No dysphagia or odynophagia. No reflux, n/v, change in bowel habits. No abdominal pain, bloating or distension. No black or bloody stools. : See above. Endo: Denies hot flashes. Derm: No current rash. Heme: No unusual bleeding and unexplained bruising. Psych: Normal mood. PHYSICAL EXAM: Vitals: Blood pressure 98/52, pulse (!) 57, temperature 36.4 C (97.5 F), temperature source Temporal, SpO2 98%. Well-appearing and in no acute distress. EYES: Sclerae are anicteric bilaterally. LYMPHATIC: There is no cervical or supraclavicular adenopathy. ABDOMEN: The abdomen is nondistended. 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 -I verified bicalutamide on med list at [facility]. -PSA undetectable as of 12/2024. - On review of his record, found he did not receive Prolia in December. Not clear why. Discussed administration today. Plan: -Okay for Eligard q 3 month Depo injection today. -Denosumab 60 mg today and every 6 months. -Continue bicalutamide. -Monitor PSA every 3 months. -Check testosterone when next here. Portions of this documentation were copied and pasted from my previous office visit note dated 03/21/2024 in order to provide a cohesive continuity of the history. The note has been reviewed and edited and updated as necessary. Jonnathan Swift DO documented in this encounter [facility] 02-15-2025 Telephone encounter Note Nurse called vik Rojas. She confirmed pt name and Nurse relayed update to Bob Rojas is pleased w/ the update. She had no further questions or concerns Mayra Benton RN February 15, 2025 2:50 PM [facility] 02-15-2025 Miscellaneous Notes Nurse called vik Rojas. She confirmed pt name and Nurse relayed update to Bob Rojas is pleased w/ the update. She had no further questions or concerns Mayra Benton RN February 15, 2025 2:50 PM Mayra, Please let Bob know I have reviewed the lab tests and liver tests are normal. Thee were no surprises. We discussed other test results in office. Let me know if she has additional questions. Merlin Loredo MD Patient called to discuss his most recent lab results, she would like a rt call. documented in this encounter [facility] 02-15-2025 Telephone encounter Note Osas, Please let Bob know I have reviewed the lab tests and liver tests are normal. Thee were no surprises. We discussed other test results in office. Let me know if she has additional questions. Merlin Loredo MD [facility] Work Phone: 02-14-2025 Telephone encounter Note Patient called to discuss his most recent lab results, she would like a rt call. [facility] 02-13-2025 Instructions Merlin Loredo MD - 02/13/2025 3:26 PM EDT We discussed your liver health: - Your recent ultrasound showed a normal, smooth liver appearance, which is excellent news. This is a significant improvement compared to previous findings that suggested cirrhosis. - Your FibroScan results have also improved dramatically, from 31 (indicating severe cirrhosis) to 7.1, which makes it unlikely that cirrhosis is still present. - Despite this improvement, because you have a history of cirrhosis, you remain at risk for liver cancer. To monitor this, you will need liver ultrasounds every 6 months. Please ensure these are scheduled regularly. We discussed your medication: - You should stop taking carvedilol (Coreg) as your heart rate is too low (37 beats per minute), and it is no longer necessary given the improvement in your liver condition. This will simplify your medication regimen. - If any new symptoms arise after stopping carvedilol, please contact our office. We reviewed your lab results: - Your prothrombin time and INR (a liver function test) are normal, which is a positive sign. - Your blood count is also normal. - Your liver function tests are still pending. I will review these once they are available. If everything is normal, my nurse or secretary of state will notify you. If there are any concerns, I will contact you directly. You can also check your results on Supersolid. Follow-up plan: - Continue with liver ultrasounds every 6 months to monitor for any potential issues. - If you have any questions or concerns, please reach out to our office. documented in this encounter [facility] 02-13-2025 Note HNO ID: [id number] Author: MERLIN LOREDO MD Service: ? Author Type: Physician Type: Progress Notes Filed: 02/13/2025 15:31 Note Text: Patient is a 74-year-old male presenting for follow-up on liver damage. He is accompanied by his POA, Bob Ferraro. Patient has a history of liver damage, initially suspected to be cirrhosis based on a FibroScan performed several years ago, which showed a liver stiffness measurement of 31 kPa. He was placed on a salt restriction diet at that time. A recent FibroScan showed a significant improvement, with a liver stiffness measurement of 7.1 kPa, making cirrhosis unlikely. Patient is currently on carvedilol (Coreg) for the management of small esophageal varices identified during a previous endoscopy. He is reportedly taking the medication twice daily, although the exact dosage is unclear. His POA notes that his heart rate was recorded at 37 bpm today, which she attributes to the carvedilol. She also mentions that patient seems to sleep a lot, which she believes may be due to a combination of the carvedilol and his pain medication. Past Diagnostic Results: - FibroScan (several years ago): Liver stiffness measurement of 31 kPa, consistent with cirrhosis. - FibroScan (recent): Liver stiffness measurement of 7.1 kPa, making cirrhosis unlikely. - Ultrasound (today): Normal liver appearance. - Ultrasound (August 30): Liver appeared cirrhotic; gallstones present. - Endoscopy (date unspecified): Small esophageal varices identified. - Lab Work (today): - Prothrombin time: Normal. - INR: Normal. - CBC: Normal. - LFTs: Pending. - Lab Work (August): LFTs were excellent. 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 Gonzáles intermediate current use of insulin (HCC) Metabolic encephalopathy Muscle wasting and atrophy, not elsewhere classified, unspecified site ALBINO (obstructive sleep apnea) BiPAP, [facility] 07/09/2014. Consistently compliant 04/14/2017. TO Other malaise Other symbolic dysfunctions Parkinson's disease (HCC) Personal history of transient ischemic attack (TIA), [...] SURGICAL HISTORY OF 10/2019 Placement of BiVICD BP (!) 96/42 (BP Site: Right Arm, BP Position: Sitting, BP Cuff Size: Regular Adult) Pulse (!) 40 Temp 36.4 ?C (97.6 ?F) (Temporal) Ht 175.3 cm (5' 9") Wt 80.7 kg (178 lb) SpO2 95% BMI 26.29 kg/m? HEENT: neg neuro: alert oriented; severely impaired due to PArkinsons and repeated neurol events Impression: 1. Liver disease (K76.9) Previous FibroScan showed significant improvement from 31 to 7.1, indicating a decreased likelihood of cirrhosis. Recent ultrasound demonstrated a normal-appearing liver. Prior endoscopy revealed small esophageal varices. Patient was on carvedilol for variceal prophylaxis, but current heart rate is critically low at 37 bpm, likely due to medication. Recent labs show normal INR and blood count; liver function tests are pending but were excellent in August. - Discontinue carvedilol due to bradycardia and improved liver status. - Continue biannual liver ultrasounds to monitor for hepatocellular carcinoma risk. - Follow-up (more content not included)... [facility] 02-13-2025 History of Present illness Narrative Patient is a 74-year-old male presenting for follow-up on liver damage. He is accompanied by his POA, Bob Ferraro. Patient has a history of liver damage, initially suspected to be cirrhosis based on a FibroScan performed several years ago, which showed a liver stiffness measurement of 31 kPa. He was placed on a salt restriction diet at that time. A recent FibroScan showed a significant improvement, with a liver stiffness measurement of 7.1 kPa, making cirrhosis unlikely. Patient is currently on carvedilol (Coreg) for the management of small esophageal varices identified during a previous endoscopy. He is reportedly taking the medication twice daily, although the exact dosage is unclear. His POA notes that his heart rate was recorded at 37 bpm today, which she attributes to the carvedilol. She also mentions that patient seems to sleep a lot, which she believes may be due to a combination of the carvedilol and his pain medication. Past Diagnostic Results: - FibroScan (several years ago): Liver stiffness measurement of 31 kPa, consistent with cirrhosis. - FibroScan (recent): Liver stiffness measurement of 7.1 kPa, making cirrhosis unlikely. - Ultrasound (today): Normal liver appearance. - Ultrasound (August 30): Liver appeared cirrhotic; gallstones present. - Endoscopy (date unspecified): Small esophageal varices identified. - Lab Work (today): - Prothrombin time: Normal. - INR: Normal. - CBC: Normal. - LFTs: Pending. - Lab Work (August): LFTs were excellent. 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 Consistently compliant 04/14/2017. TO Other malaise Other symbolic dysfunctions Parkinson's disease (HCC) Personal history of transient ischemic attack (TIA), [...] SURGICAL HISTORY OF 10/2019 Placement of BiVICD BP (!) 96/42 (BP Site: Right Arm, BP Position: Sitting, BP Cuff Size: Regular Adult) Pulse (!) 40 Temp 36.4 C (97.6 F) (Temporal) Ht 175.3 cm (5' 9") Wt 80.7 kg (178 lb) SpO2 95% BMI 26.29 kg/m HEENT: neg neuro: alert oriented; severely impaired due to PArkinsons and repeated neurol events Impression: 1. Liver disease (K76.9) Previous FibroScan showed significant improvement from 31 to 7.1, indicating a decreased likelihood of cirrhosis. Recent ultrasound demonstrated a normal-appearing liver. Prior endoscopy revealed small esophageal varices. Patient was on carvedilol for variceal prophylaxis, but current heart rate is critically low at 37 bpm, likely due to medication. Recent labs show normal INR and blood count; liver function tests are pending but were excellent in August. - Discontinue carvedilol due to bradycardia and improved liver status. - Continue biannual liver ultrasounds to monitor for hepatocellular carcinoma risk. - Follow-up on pending liver function tests; results to be communicated via MyChart or phone. - Schedule next follow-up appointment in 6 months. 25 min more than 50% counseling Merlin Loredo MD documented in this encounter [facility] 02-13-2025 History of Present illness Narrative Radiology Service Progress Note PATIENT NAME: Steph Baumann DATE OF SERVICE: February 13, 2025 TIME: 1:48 PM PATIENT IDENTITY VERIFICATION COMPLETED USING TWO (2) IDENTIFIERS: Name and Date of obtained from a relative, guardian or prior caregiver.. FALL SCREENING: Has the patient had 2 falls in the last year or 1 fall with injury or currently using an Ambulatory Assistive Device (Walker, Cane, Wheelchair, Crutches, etc.)? Yes, Patient High Risk for Falls What interventions were put in place to prevent falls during this visit? Instructed Patient to Call for Help if Needed, Offered Assistance with Transfers/Clothing, Instructed Patient to Remain Seated (Not on Exam Table) Until Exam, and Increased Observations by Caregivers PATIENT GENDER DATA: Assigned male at PATIENT RELEVANT IMPLANT DATA REVIEWED: Not Applicable PATIENT PRESENTS WITH AN IMPLANTABLE OR ATTACHED COMMUNICATIONS TECHNOLOGIST: No RADIOLOGY DEPARTMENT: Ultrasound PERIPHERAL IV DATA: Not applicable SIGNED BY: Marilynn Damian RDMS February 13, 2025 1:48 PM documented in this encounter [facility] 02-13-2025 Note HNO ID: [id number] Author: MARILYNN DAMIAN RDMS Service: ? Author Type: Diagnostic Tech Type: Progress Notes Filed: 02/13/2025 13:48 Note Text: Radiology Service Progress Note PATIENT NAME: Steph Baumann DATE OF SERVICE: February 13, 2025 TIME: 1:48 PM PATIENT IDENTITY VERIFICATION COMPLETED USING TWO (2) IDENTIFIERS: Name and Date of obtained from a relative, guardian or prior caregiver.. FALL SCREENING: Has the patient had 2 falls in the last year or 1 fall with injury or currently using an Ambulatory Assistive Device (Walker, Cane, Wheelchair, Crutches, etc.)? Yes, Patient High Risk for Falls What interventions were put in place to prevent falls during this visit? Instructed Patient to Call for Help if Needed, Offered Assistance with Transfers/Clothing, Instructed Patient to Remain Seated (Not on Exam Table) Until Exam, and Increased Observations by Caregivers PATIENT GENDER DATA: Assigned male at PATIENT RELEVANT IMPLANT DATA REVIEWED: Not Applicable PATIENT PRESENTS WITH AN IMPLANTABLE OR ATTACHED COMMUNICATIONS TECHNOLOGIST: No RADIOLOGY DEPARTMENT: Ultrasound PERIPHERAL IV DATA: Not applicable SIGNED BY: Marilynn Damian RDMS February 13, 2025 1:48 PM [facility] 12-12-2024 Note HNO ID: [id number] Author: GLENDA URENA LPN Service: ? Author Type: LICENSED NURSE Type: Progress Notes Filed: 12/12/2024 15:50 Note Text: Patient here for injection of Eligard. Given SQ in RLQ. Patient tolerated well. Glenda Urena LPN [facility] 12-12-2024 History of Present illness Narrative Patient here for injection of Eligard. Given SQ in RLQ. Patient tolerated well. Glenda Urena LPN documented in this encounter [facility] 12-12-2024 Evaluation note Diagnosis Onset Date Resolution Atrial fibrillation acute Febru 2024 11:10am Cirrhosis acute December 12, 2024 11:10am Biventricular ICD (implantable cardioverter-defibr illator) in place October 12, 2019 chronic December 12, 2024 11:10am Chronic combined systolic and diastolic CHF (congestive heart failure) chronic December 12, 2024 11:10am Essential (primary) hypertension chronic December 12, 2024 11:10am Nonischemic cardiomyopathy chronic December 12, 2024 11:10am Muscle hypertonia acute January 062024 8:21am Abnormality of gait and mobility chronic January 24, 2025 8:21am Parkinson's disease inactive January 24, 2025 8:21am [facility] Work Phone: [phone] Note* Addendum Note - Mayra Benton RN - 10/22/2024 1:47 PM ESTAddended by: MAYRA BENTON on: 10/22/2024 01:47 PM Modules accepted: Orders [facility]12-16-2024 Miscellaneous Notes* Addendum Note - Mayra Benton RN - 10/22/2024 1:47 PM ESTAddended by: MAYRA BENTON on: 10/22/2024 01:47 PM Modules accepted: Orders * Telephone Encounter - Mayra Benton RN - 10/22/2024 1:46 PM EST Orders pended with later expiry date Mayra Benton RN October 22, 2024 1:47 PM * Telephone Encounter - Luz Elena Snell - 10/22/2024 1:[address] new lab orders, 12/01 Luz Elena Snell Commercial Property Manager ll [facility] Telephone encounter Note * Telephone Encounter - Mayra Benton RN - 10/22/2024 1:46 PM EST Orders pended with later expiry date Mayra Benton RN October 22, 2024 1:47 PM [facility]12-16-2024 Telephone encounter Note* Telephone Encounter - Luz Elena Snell - 10/22/2024 1:[address] new lab orders, 12/01 Luz Elena Snell Commercial Property Manager ll [facility]11-13-2024 NoteHNO ID: [id number] Author: GLENDA URENA LPN Service: ? Author Type: LICENSED NURSE Type: Progress Notes Filed: 09/19/2024 15:34 Note Text: Pt here for injection of Eligard. Given SQ in abd LLQ. Pt tolerated well. [facility] History of Present illness Narrative* Glenda Urena LPN - 09/19/2024 3:30 PM EST Pt here for injection of Eligard. Given SQ in abd LLQ. Pt tolerated well. Glenda Urena LPN [facility] NoteHNO ID: [id number] Author: BALTA ANNA, ? Service: ? Author Type: Nurse Practitioner Type: Progress Notes Filed: 09/07/2024 14:58 Note Text: Steph Baumann 1950 Oncologic problem(s): 1) Castrate sensitive prostate cancer. HPI: The patient is a 73-year-old male [...] 10/21/2022 and again on 01/27/2023 and 09/13/2023. Per initial office consultation: Insurance no longer covers Dr. Saravia. Seen by Rustam Masterson PA-C. Referred here. Most recent injection was about 4 months ago. On bicalutamide. No diarrhea. On lactulose BID for cirrhosis. Here today with POA from [place] (daughter's friend). Visits him every 2 weeks. Diagnosed with Parkinsons in April. Requires wheelchair. Was independent prior to that. Living at [facility]. Recently started having dysuria "deep in" when starts urinating. No gross hematuria. [place] Only pain is right hip and low back if sits too long. Right hip pain has been evaluated by his orthopedic several times as well as the low back pain. No clear etiology. Presents for ongoing oncologic management. Interim history: He is tolerating ADT well. Denies hot flashes. His only complaint continues to be of right hip pain. 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 He was evaluated by his orthopedic surgeon. Hardware seems to be in good position. Received injections in area which helped for a few weeks. Not a surgical candidate for repeat hip surgery. Cannot participate in PT because of the pain. Denies changes in bowel or bladder habits. No bleeding. PSA remains undetectable. 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 [facility]10[facility] History of Present illness Narrative* Bernarda Annana - 09/05/2024 11:07 AM EDT Steph Baumann 1950 Oncologic problem(s): 1) Castrate sensitive prostate cancer. HPI: The patient is a 73-year-old male [...] in the left adrenal gland potentially representing bilateraladenomas. There was enlargement the prostate gland measuring [...] 10/21/2022 and again on 01/27/2023 and 09/13/2023. Per initial office consultation: Insurance no longer covers Dr. Saravia. Seen by Rustam Masterson PA-C. Referred here. Most recent injection was about 4 months ago. On bicalutamide. No diarrhea. On lactulose BID for cirrhosis. Here today with POA from [place] (daughter's friend). Visits him every 2 weeks. Diagnosed with Parkinsons in April. Requires wheelchair. Was independent prior to that. Living at [facility]. Recently started having dysuria "deep in" when starts urinating. No gross hematuria. [place]. Only pain is right hip and low back if sits too long. Right hip pain has been evaluated by his orthopedic several times as well as the low back pain. No clear etiology. Presents for ongoing oncologic management. Interim history: He is tolerating ADT well. Denies hot flashes. His only complaint continues to be of right hip pain. 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 He was evaluated by his orthopedic surgeon. Hardware seems to be in good position. Received injections in area which helped for a few weeks. Not a surgical candidate for repeat hip surgery. Cannot participate in PT because of the pain. Denies changes in bowel or bladder habits. No bleeding. PSA remains undetectable. 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 Gonzáles intermediate current use of insulin (HCC) Metabolic encephalopathy Muscle wasting and atrophy, not elsewhere classified, unspecified site ALBINO (obstructive sleep apnea) BiPAP, [facility] 07/09/2014. Consistently compliant 04/14/2017. TO Other malaise Other symbolic dysfunctions Parkinson's disease (HCC) Personal history of transient ischemic attack (TIA), [...] SURGICAL HISTORY OF 10/2019 Placement of BiVICD ALLERGIES Allergen Reactions Metformin Diarrhea Even low dose caused diarrhea Oxycodone-Acetamino* Unknown Current Outpatient Medications Medication Sig BYDUREON BCISE 2 mg/0.85 mL injection Inject 2 mg subcutaneously one time a week. diclofenac (VOLTAREN ARTHRITIS PAIN) 1 % topical gel Apply one application to right hip topically every 12 hours as needed for pain. denosumab (PROLIA) 60 mg/mL Injection to be administered once every 6 months lactulose 20 gram/30 mL solution Take 45 mL by mouth three times a day. lisinopril (ZESTRIL) 5 mg tablet Take 5 mg by mouth once daily. aluminum-magnesium hydroxide-simethicone (MAALOX,MYLANTA,MAG-AL PLUS) 200-200-20 mg/5 mL suspensionTake 30 mL by mouth every 4 hours as needed. bisacodyl (DULCOLAX) 10 mg supp 10 mg by RECTAL route once daily as needed for constipation. sodium phosphate,mono-dibasic (FLEET ENEMA RECTAL) 1 Enema by RECTAL route as needed. dextrose (GLUCOSE GEL ORAL) Take 1 Dose by mouth as needed. GUAIFENESIN ORAL Take 10 mL by mouth every 4 hours as needed. magnesium hydroxide (MILK OF MAGNESIA ORAL) Take 30 mL by mouth as needed. methyl salicylate-menthol (MUSCLE RUB) 15-10 % topical cream Apply to right hip topically in the morning for pain. potassium chloride ER (KLOR-CON) 20 mEq tablet Take 20 mEq by mouth once daily. cholecalciferol (VITAMIN D-3) 50 mcg (2,000 unit) tablet Take 2,000 Units by mouth once daily. sertraline (ZOLOFT) 50 mg tablet Take 50 mg by mouth once daily. acetaZOLAMIDE (DIAMOX) 250 mg tablet Take 250 mg by mouth two times a day. docusate sodium (COLACE) 100 mg capsule Take 100 mg by mouth two times a day. pantoprazole DR (PROTONIX) 40 mg tablet Take 40 mg by mouth two times a day. GLUCAGON EMERGENCY KIT, HUMAN, INJECTION Inject 1 mL subcutaneously as needed. Sennosides 8.6 mg cap Take 17.2 mg by mouth daily at bedtime. traMADol (ULTRAM) 50 mg tablet Take 50 mg by mouth every 6 hours as needed for pain. carvedilol (COREG) 3.125 mg tablet Take 1 tablet by mouth twice daily. ondansetron orally disintegrating (ZOFRAN ODT) 4 mg disintegrating tablet Take 1 tablet by mouth every 8 hours as needed for nausea/vomiting. baclofen (LIORESAL) 20 mg tablet Take 20 mg by mouth three times a day. apixaban (ELIQUIS) 5 mg tab(s) Take 1 tablet by mouth twice daily. bumetanide (BUMEX) 1 mg tablet Take 1 tablet by mouth once daily. insulin glargine (BASAGLAR KWIKPEN U-100 INSULIN) 100 unit/mL (3 mL) Inject 27 Units subcutaneouslydaily at bedtime. Adjust dose as directed (Patient taking differently: Inject 8 Units subcutaneously daily at bedtime. Adjust dose as directed) carbidopa-levodopa (SINEMET 25-100) 25-100 mg per tablet Take 2 tablets by mouth three times a day. bicalutamide (CASODEX) 50 mg tablet Take 50 mg by mouth once daily. albuterol HFA (VENTOLIN HFA) 90 mcg/actuation inhaler Inhale 2 Puffs as instructed every 6 hours asneeded for wheezing/shortness of breath. nitroglycerin sublingual (NITROQUICK) 0.4 mg SL tablet Dissolve 1 tablet under the tongue every 5 minutes as needed for Chest Pain. COMPOUNDED PRESCRIPTION Four point cane Dx: Z86.73, R53.1 CPAP BiPAP @ 9/13 cm of water with humidification. lifetime supplies. Dx ALBINO Multivitamin ORAL capsule Take 1 capsule by mouth once daily. insulin aspart U-100 (NOVOLOG) 100 unit/mL Inject subcutaneously three times a day before meals. Uses sliding scale dulaglutide (TRULICITY) 3 mg/0.5 mL pen injector Inject 3 mg subcutaneously one time a week. Tuesday INSULIN LISPRO SUBCUTANEOUS Inject subcutaneously. Per sliding scale loratadine (CLARITIN) 10 mg tablet Take 1 tablet by mouth once daily as needed. fluticasone-vilanterol (BREO ELLIPTA) 100-25 mcg/dose inhaler Inhale 1 Inhalation as instructed once daily. No current facility-administered medications for this visit. Social History Tobacco Use Smoking status: Former Current packs/day: 0.00 Average packs/day: 1 pack/day for 46.0 years (46.0 ttl pk-yrs) Types: Cigarettes Start date: 07/20/1967 Quit date: 07/20/2013 Years since quittin.1 Smokeless tobacco: Never Vaping Use Vaping status: Never Used Substance Use Topics Alcohol use: No Drug use: No Comment: Remote drugs, quit 1994. Family History Problem Relation Age of Onset Diabetes Mother Coronary Artery Disease Mother Thyroid Mother thinks "over active" Diabetes Child daughter ROS: Constitutional: No fever. No drenching night sweats. Good appetite. Naps daily. All systems reviewed on 09/05/2024 with pertinent positives and negatives as outlined in the interval history. PHYSICAL EXAM: Vitals: Blood pressure 91/67, pulse 64, temperature 36.3 C (97.3 F), temperature source Temporal, SpO2 96%. Well-appearing and in no acute distress. EYES: Sclerae are anicteric bilaterally. LYMPHATIC: There is no cervical or supraclavicular adenopathy. RESPIRATORY: Inspiratory breath sounds are of normal intensity in all peters. No rales, wheezes or rhonchi. CARDIOVASCULAR: Rhythm is regular. ABDOMEN: The abdomen is nondistended. I have performed the physical exam today (09/05/24) and have edited the note to correlate with current findings. 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 -Tolerating ADT with Eligard and bicalutamide very well. -PSA undetectable. -Discussed with him and his friend/POA the continued monitoring of castration sensitive nonmetastatic prostate cancer. -Discussed bone health issues. Needs to have some dental work done but unaffordable. - labs remain stable Plan: -Lupron q 3 month Depo injection today. -Continue bicalutamide. -Monitor PSA every 3 months. OV in 6 months with injection Balta Anna APRN.STOVE INSTALLER I spent a total of 30 minutes on the date of the service which included preparing to see the patient, [id number] patient care, completing clinical documentation, and performing a medically appropriate examination. Portions of this note including HPI, ROS, impression/plan may have been copied forward as to provide important historical information essential in contributing to medical decision making. Documentation has been reviewed and edited as necessary to support clinical decision making for today's visit and to reflect my own independent evaluation of this patient. [facility] NoteHNO ID: [id number] Author: MERLIN LOREDO MD Service: ? Author Type: Physician Type: Progress Notes Filed: 08/28/2024 16:11 Note Text: Follow up 74 year old with fairly advanced Parkinson's wheel chair bound [place] in [place] Last visit March 2024 when I concluded: Impression: Stable cirrhosis Rec: continue same program; no lactulose unless Bob notices AMS Interval US today IMPRESSION: Cirrhotic liver morphology. No suspicious lesions. Cholelithiasis. Fibiorscan today E (kpa): 7.1 down from 31 in 2019!!! CAP: 277 EGD this month small EV reported. I see none. Latest Ref Rng 08/28/2024 Protein, Total 6.3 - 8.0 g/dL 7.2 Albumin 3.9 - 4.9 g/dL 4.1 Calcium 8.5 - 10.2 mg/dL 8.9 Bilirubin, Total 0.2 - 1.3 mg/dL 0.5 Alkaline Phosphatase 38 - 113 U/L 68 AST 14 - 40 U/L 12 (L) ALT 10 - 54 U/L <5 (L) Glucose 74 - 99 mg/dL 111 (H) BUN 9 - 24 mg/dL 17 Creatinine 0.73 - 1.22 mg/dL 0.92 Sodium 136 - 144 mmol/L 139 Potassium 3.7 - 5.1 mmol/L 4.6 Chloride 98 - 107 mmol/L 111 (H) CO2 22 - 30 mmol/L 17 (L) Anion Gap 8 - 15 mmol/L 11 eGFR >=60 mL/min/1.73m? 88 PT Sec 9.7 - 13.0 sec 13.2 (H) PT INR 0.9 - 1.3 1.3 Legend: (L) Low (H) High Platelet 127 He is on lactulose for ammonia elevations. However 5 determinations from April - July have all been normal Current Outpatient Medications Medication Sig denosumab (PROLIA) 60 mg/mL Injection to be administered once every 6 months lactulose 20 gram/30 mL solution Take 45 mL by mouth three times a day. lisinopril (ZESTRIL) 5 mg tablet Take 5 mg by mouth once daily. insulin aspart U-100 (NOVOLOG) 100 unit/mL Inject subcutaneously three times a day before meals. Uses sliding scale aluminum-magnesium hydroxide-simethicone (MAALOX,MYLANTA,MAG-AL PLUS) 200-200-20 mg/5 mL suspension Take 30 mL by mouth every 4 hours as needed. bisacodyl (DULCOLAX) 10 mg supp 10 mg by RECTAL route once daily as needed for constipation. sodium phosphate,mono-dibasic (FLEET ENEMA RECTAL) 1 Enema by RECTAL route as needed. dextrose (GLUCOSE GEL ORAL) Take 1 Dose by mouth as needed. GUAIFENESIN ORAL Take 10 mL by mouth every 4 hours as needed. magnesium hydroxide (MILK OF MAGNESIA ORAL) Take 30 mL by mouth as needed. methyl salicylate-menthol (MUSCLE RUB) 15-10 % topical cream Apply to right hip topically in the morning for pain. potassium chloride ER (KLOR-CON) 20 mEq tablet Take 20 mEq by mouth once daily. cholecalciferol (VITAMIN D-3) 50 mcg (2,000 unit) tablet Take 2,000 Units by mouth once daily. sertraline (ZOLOFT) 50 mg tablet Take 50 mg by mouth once daily. acetaZOLAMIDE (DIAMOX) 250 mg tablet Take 250 mg by mouth two times a day. docusate sodium (COLACE) 100 mg capsule Take 100 mg by mouth two times a day. pantoprazole DR (PROTONIX) 40 mg tablet Take 40 mg by mouth two times a day. dulaglutide (TRULICITY) 3 mg/0.5 mL pen injector Inject 3 mg subcutaneously one time a week. Tuesday GLUCAGON EMERGENCY KIT, HUMAN, INJECTION Inject 1 mL subcutaneously as needed. Sennosides 8.6 mg cap Take 17.2 mg by mouth daily at bedtime. INSULIN LISPRO SUBCUTANEOUS Inject subcutaneously. Per sliding scale traMADol (ULTRAM) 50 mg tablet Take 50 mg by mouth every 8 hours as needed for pain. Take one tablet by mouth every eight hours as needed for pain carvedilol (COREG) 3.125 mg tablet Take 1 tablet by mouth twice daily. ondansetron orally disintegrating (ZOFRAN ODT) 4 mg disintegrating tablet Take 1 tablet by mouth every 8 hours as needed for nausea/vomiting. baclofen (LIORESAL) 20 mg tablet Take 20 mg by mouth three times a day. apixaban (ELIQUIS) 5 mg tab(s) Take 1 tablet by mouth twice daily. bumetanide (BUMEX) 1 mg tablet Take 1 tablet by mouth once daily. insulin glargine (BASAGLAR KWIKPEN U-100 INSULIN) 100 unit/mL (3 mL) Inject 27 Units subcutaneously daily at bedtime. Adjust dose as directed (Patient taking differently: Inject 27 Units subcutaneously daily at bedtime. Adjust dose as directed) carbidopa-levodopa (SINEMET 25-100) 25-100 mg per tablet Take 2 tablets by mouth three times a day. loratadine (CLARITIN) 10 mg tablet Take 1 tablet by mouth once daily as needed. fluticasone-vilanterol (BREO ELLIPTA) 100-25 mcg/dose inhaler Inhale 1 Inhalation as instructed once daily. bicalutamide (CASODEX) 50 mg tablet Take 50 mg by mouth once daily. albuterol HFA (VENTOLIN [...] water with humidification. lifetime supplies. Dx ALBINO Multivitamin ORAL capsule Take 1 capsule by mouth once daily. No current facility-administered medications for this visit. Exam: BP 107/57 (BP Site: Right Arm, BP Posi (more content not included)... [facility] History of Present illness Narrative* Merlin Loredo MD - 08/28/2024 2:53 PM EDT Follow up 74 year old with fairly advanced Parkinson's wheel chair bound [place] Last visit March 2024 when I concluded: Impression: Stable cirrhosis Rec: continue same program; no lactulose unless Bob notices AMS Interval US today IMPRESSION: Cirrhotic liver morphology. No suspicious lesions. Cholelithiasis. Fibiorscan today E (kpa): 7.1 down from 31 in 2019!!! CAP: 277 EGD this month small EV reported. I see none. Latest Ref Rng 08/28/2024 Protein, Total 6.3 - 8.0 g/dL 7.2 Albumin 3.9 - 4.9 g/dL 4.1 Calcium 8.5 - 10.2 mg/dL 8.9 Bilirubin, Total 0.2 - 1.3 mg/dL 0.5 Alkaline Phosphatase 38 - 113 U/L 68 AST 14 - 40 U/L 12 (L) ALT 10 - 54 U/L <5 (L) Glucose 74 - 99 mg/dL 111 (H) BUN 9 - 24 mg/dL 17 Creatinine 0.73 - 1.22 mg/dL 0.92 Sodium 136 - 144 mmol/L 139 Potassium 3.7 - 5.1 mmol/L 4.6 Chloride 98 - 107 mmol/L 111 (H) CO2 22 - 30 mmol/L 17 (L) Anion Gap 8 - 15 mmol/L 11 eGFR >=60 mL/min/1.73m 88 PT Sec 9.7 - 13.0 sec 13.2 (H) PT INR 0.9 - 1.3 1.3 Legend: (L) Low (H) High Platelet 127 He is on lactulose for ammonia elevations. However 5 determinations from April - July have all been normal Current Outpatient Medications Medication Sig denosumab (PROLIA) 60 mg/mL Injection to be administered once every 6 months lactulose 20 gram/30 mL solution Take 45 mL by mouth three times a day. lisinopril (ZESTRIL) 5 mg tablet Take 5 mg by mouth once daily. insulin aspart U-100 (NOVOLOG) 100 unit/mL Inject subcutaneously three times a day before meals. Uses sliding scale aluminum-magnesium hydroxide-simethicone (MAALOX,MYLANTA,MAG-AL PLUS) 200-200-20 mg/5 mL suspensionTake 30 mL by mouth every 4 hours as needed. bisacodyl (DULCOLAX) 10 mg supp 10 mg by RECTAL route once daily as needed for constipation. sodium phosphate,mono-dibasic (FLEET ENEMA RECTAL) 1 Enema by RECTAL route as needed. dextrose (GLUCOSE GEL ORAL) Take 1 Dose by mouth as needed. GUAIFENESIN ORAL Take 10 mL by mouth every 4 hours as needed. magnesium hydroxide (MILK OF MAGNESIA ORAL) Take 30 mL by mouth as needed. methyl salicylate-menthol (MUSCLE RUB) 15-10 % topical cream Apply to right hip topically in the morning for pain. potassium chloride ER (KLOR-CON) 20 mEq tablet Take 20 mEq by mouth once daily. cholecalciferol (VITAMIN D-3) 50 mcg (2,000 unit) tablet Take 2,000 Units by mouth once daily. sertraline (ZOLOFT) 50 mg tablet Take 50 mg by mouth once daily. acetaZOLAMIDE (DIAMOX) 250 mg tablet Take 250 mg by mouth two times a day. docusate sodium (COLACE) 100 mg capsule Take 100 mg by mouth two times a day. pantoprazole DR (PROTONIX) 40 mg tablet Take 40 mg by mouth two times a day. dulaglutide (TRULICITY) 3 mg/0.5 mL pen injector Inject 3 mg subcutaneously one time a week. Tuesday GLUCAGON EMERGENCY KIT, HUMAN, INJECTION Inject 1 mL subcutaneously as needed. Sennosides 8.6 mg cap Take 17.2 mg by mouth daily at bedtime. INSULIN LISPRO SUBCUTANEOUS Inject subcutaneously. Per sliding scale traMADol (ULTRAM) 50 mg tablet Take 50 mg by mouth every 8 hours as needed for pain. Take one tablet by mouth every eight hours as needed for pain carvedilol (COREG) 3.125 mg tablet Take 1 tablet by mouth twice daily. ondansetron orally disintegrating (ZOFRAN ODT) 4 mg disintegrating tablet Take 1 tablet by mouth every 8 hours as needed for nausea/vomiting. baclofen (LIORESAL) 20 mg tablet Take 20 mg by mouth three times a day. apixaban (ELIQUIS) 5 mg tab(s) Take 1 tablet by mouth twice daily. bumetanide (BUMEX) 1 mg tablet Take 1 tablet by mouth once daily. insulin glargine (BASAGLAR KWIKPEN U-100 INSULIN) 100 unit/mL (3 mL) Inject 27 Units subcutaneouslydaily at bedtime. Adjust dose as directed (Patient taking differently: Inject 27 Units subcutaneously daily at bedtime. Adjust dose as directed) carbidopa-levodopa (SINEMET 25-100) 25-100 mg per tablet Take 2 tablets by mouth three times a day. loratadine (CLARITIN) 10 mg tablet Take 1 tablet by mouth once daily as needed. fluticasone-vilanterol (BREO ELLIPTA) 100-25 mcg/dose inhaler Inhale 1 Inhalation as instructed once daily. bicalutamide (CASODEX) 50 mg tablet Take 50 mg by mouth once daily. albuterol HFA (VENTOLIN HFA) 90 mcg/actuation inhaler Inhale 2 Puffs as instructed every 6 hours asneeded for wheezing/shortness of breath. nitroglycerin sublingual (NITROQUICK) 0.4 mg SL tablet Dissolve 1 tablet under the tongue every 5 minutes as needed for Chest Pain. COMPOUNDED PRESCRIPTION Four point cane Dx: Z86.73, R53.1 CPAP BiPAP @ 9/13 cm of water with humidification. lifetime supplies. Dx ALBINO Multivitamin ORAL capsule Take 1 capsule by mouth once daily. No current facility-administered medications for this visit. Exam: BP 107/57 (BP Site: Right Arm, BP Position: Sitting, BP Cuff Size: Regular Adult) Pulse 69 Temp 36.5 C (97.7 F) (Temporal) Ht 175.3 cm (5' 9") Wt 78 kg (172 lb) SpO2 98% BMI 25.40 kg/m HEENT: still expression; follows conversation; smiles at time limited conversation neuro: as above. Impression: Improved liver stiffness by Fibroscan (31 - 7.1 today) Scant evidence of current liver disease Parkinson's disease Rec: discussed findings. Heart function may be better. Will continue with US and labs q 6 months Since all ammonia levels are normal then lactulose not likely needed (except for constipation). Diamox noted. In the absence of advanced liver disease this is not contraindicated 25 min more than 50% counseling Merlin Loredo MD [facility] NoteHNO ID: [id number] Author: FABIOLA MILLER APRN.JONG Service: ? Author Type: Nurse Practitioner Type: Progress Notes Filed: 08/28/2024 12:25 Note Text: Fibroscan Report Date performed: August 28, 2024 Performed by: Syeda Alexander RN Interpreted by: Fabiola Miller APRN, CNP Patient fasted 3 hours:Yes Indication: Alcoholic liver disease Technical difficulties: None. Result: The reading was adequate. Please refer to get images report for individual readings Number of readings: 10 IQR %: 15% E (kpa): 7.1 CAP: 277 Impression The liver stiffness is 7.1 kPa which corresponds to 91% chance of stage F0-F2 fibrosis. The CAP analysis showed grade S2 of liver steatosis. Stage of liver fibrosis based on above kPa: A 91% chance of stage 0-2 fibrosis A 9% chance of stage 3-4 fibrosis (advanced fibrosis) A <1% chance of stage 4 fibrosis (cirrhosis). A kPa >20 indicates a high likelihood of stage 4 fibrosis/cirrhosis, consider further testing to confirm and referral to hepatology. 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 Alcoholic Liver disease Fibroscan Fibrosis Risk <7 kPA = F0-F2 96%, F3+F4 4%, F4 <1% <10 kPA = F0-F2 91%, F3+F4 9%, F4 <1% 10-15 kPA = F0-F2 56%, F3+F4 44%, F4 16% >15 kPA = F0-F2 15%, F3+F4 85%, F4 68% Grade CAP value up to 237 dB/M corresponds to S0 (< 10 % Fat) CAP value between (238 - 258 dB/M) corresponds to S1 (>/= 11 % Fat) CAP value between (259 - 289 dB/M) corresponds to S2 (>/= 33 % Fat) CAP value > 290dB/M corresponds to S3 (>/= 67 % Fat) stage 0 ( S0:< 10 % steatosis) stage 1 (>/= S1: 11%-33% steatosis) stage 2 (>/= S2: 34%-66% steatosis) stage 3 (>/= S3: > 66% steatosis) Reference Lozano Y, Ariel Q, Lozano T, Jayde J, Blake H, Faraz T. Controlled attenuation parameter for assessment of hepatic steatosis grades: a diagnostic meta-analysis. Int J Clin Exp Med. 2015 Aug 15;8(10):36643-59. PMID: 39146621; PMCID: [id number]. Stuart Fuentes, Russel KIMBERLEE, Lukasz M, Carie F, Chasidy J, Marek O, Richard F, Harjit M, Evangelista G, Anahy A, Hien E, Herve L, Zahraa G, Reese A, Vivian U, Rolle S, Kota P, Dashao V, de Edgard V, Genevieve M, Ajit BARRIOS. Refining the Baveno elastography criteria for the definition of compensated advanced chronic liver disease. J Hepatol. 2020;74(5):1664-8345. doi: 10.1016/j.jhep.2020.11.050. Epub 2019Oct 15. PMID: 97472304. Renita Fuentes, Dorie B, Nallely Fuentes, Raghav Fuentes, Willis S, Velvet Quarles, Karli D, Swati Culver. AASLD practice guidance on the clinical assessment and management of nonalcoholic fatty liver disease. Hepatology. 2022;77(5):3466-7041. doi:10.1097/HEP.[id number] History of Present illness Narrative* Fabiola Miller APRN.[facility] - 08/28/2024 9:31 AM EDT Fibroscan Report Date performed: August 28, 2024 Performed by: Syeda Alexander RN Interpreted by: Fabiola Miller APRN, JONG Patient fasted 3 hours:Yes Indication: Alcoholic liver disease Technical difficulties: None. Result: The reading was adequate. Please refer to get images report for individual readings Number of readings: 10 IQR %: 15% E (kpa): 7.1 CAP: 277 Impression The liver stiffness is 7.1 kPa which corresponds to 91% chance of stage F0-F2 fibrosis. The CAP analysis showed grade S2 of liver steatosis. Stage of liver fibrosis based on above kPa: A 91% chance of stage 0-2 fibrosis A 9% chance of stage 3-4 fibrosis (advanced fibrosis) A <1% chance of stage 4 fibrosis (cirrhosis). A kPa >20 indicates a high likelihood of stage 4 fibrosis/cirrhosis, consider further testing to confirm and referral to hepatology. 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 Alcoholic Liver disease Fibroscan Fibrosis Risk <7 kPA = F0-F2 96%, F3+F4 4%, F4 <1% <10 kPA = F0-F2 91%, F3+F4 9%, F4 <1% 10-15 kPA = F0-F2 56%, F3+F4 44%, F4 16% >15 kPA = F0-F2 15%, F3+F4 85%, F4 68% Grade CAP value up to 237 dB/M corresponds to S0 (< 10 % Fat) CAP value between (238 - 258 dB/M) corresponds to S1 (>/= 11 % Fat) CAP value between (259 - 289 dB/M) corresponds to S2 (>/= 33 % Fat) CAP value > 290dB/M corresponds to S3 (>/= 67 % Fat) stage 0 ( S0:< 10 % steatosis) stage 1 (>/= S1: 11%-33% steatosis) stage 2 (>/= S2: 34%-66% steatosis) stage 3 (>/= S3: > 66% steatosis) Reference Blake Y, Ariel Q, Blake T, Jayde J, Blake H, Faraz T. Controlled attenuation parameter for assessment of hepatic steatosis grades: a diagnostic meta-analysis. Int J Clin Exp Med. 2015 Aug 15;8(10):98460-52.PMID: [id number]; PMCID: [id number]. Myles Dickersont KIMBERLEE, Lukasz M, Carie F, Chasidy J, Marek O, Richard F, Harjit M, Evangelista G, Anahy A, Hien E, Hreve L, Zahraa G, Reese A, Vivian U, Sariah S, Debora, Quirino V, Vaughn V, Genevieve M, Ajit BARRIOS. Refining the Baveno elastography criteria for the definition of compensated advanced chronic liver disease. J Hepatol. 2020;74(5):9058-2243. doi: 10.1016/j.jhep.2020.11.050. Epub 2019Oct 15. PMID: [id number]. Renita Fuentes, Dorie Wang, Nallely Fuentes, Raghav Fuentes, Willis S, Velvet Quarles, Karli Quarles, Swati Culver.AASLD practice guidance on the clinical assessment and management of nonalcoholic fatty liver disease. Hepatology. 2022;77(5):1797- 1835. doi:10.1097/HEP.[id number] documented in this encounterEast [facility]10-16-2024 Nurse Note* Tarsha Dutton RN - 08/22/2024 11:47 AM EDT AMBULATORY PATIENT EDUCATION NOTE TOPIC: GI PROCEDURES: Esophagogastroduodenoscopy(EGD) for control of bleeding,dilation(any means),imaging,tube placement READINESS TO LEARN INSTRUCTION PROVIDED TO: Patient, readness to learn accessed prior to procedure COGNITIVE ABILITY: Alert and oriented PTED MOTIVATION TO LEARN: Eager FAMILY SUPPORT: High - Very involved in pt care IPATIENT LEARNS BEST BY: Individual Instruction FACTORS AFFECTING LEARNING: None PHYSICAL LIMITATIONS AFFECTING LEARNING: None LEARNING RESPONSE METHOD OF INSTRUCTION: Individual instruction PATIENT / FAMILY RESPONSE: Verbalizes understanding of: WORSENING CONDITION- Signs and symptoms of aworsening condition that warrant a call to the physician FOLLOW-UP PLAN: Complete - No need for follow-up SUPPLEMENTAL MATERIAL: Procedure Discharge Instructions REFERRAL (RECOMMENDATION): None [facility] Nurse Note* Tarsha Dutton RN - 08/22/2024 11:47 AM EDT AMBULATORY PATIENT EDUCATION NOTE TOPIC: GI PROCEDURES: Esophagogastroduodenoscopy(EGD) for control of bleeding,dilation(any means),imaging,tube placement READINESS TO LEARN INSTRUCTION PROVIDED TO: Patient, readness to learn accessed prior to procedure COGNITIVE ABILITY: Alert and oriented PTED MOTIVATION TO LEARN: Eager FAMILY SUPPORT: High - Very involved in pt care IPATIENT LEARNS BEST BY: Individual Instruction FACTORS AFFECTING LEARNING: None PHYSICAL LIMITATIONS AFFECTING LEARNING: None LEARNING RESPONSE METHOD OF INSTRUCTION: Individual instruction PATIENT / FAMILY RESPONSE: Verbalizes understanding of: WORSENING CONDITION- Signs and symptoms of aworsening condition that warrant a call to the physician FOLLOW-UP PLAN: Complete - No need for follow-up SUPPLEMENTAL MATERIAL: Procedure Discharge Instructions REFERRAL (RECOMMENDATION): None * Harjeet Del Angel RN - 08/22/2024 9:55 AM EDT PRE OP LEARNING ASSESSMENT PROCEDURE/SURGERY: GI PROCEDURES: EGD READINESS TO LEARN COGNITIVE ABILITY: Alert and oriented MOTIVATION TO LEARN: Eager FAMILY SUPPORT: High - Very involved in pt care PATIENT LEARNS BEST BY: Individual Instruction FACTORS AFFECTING LEARNING: None PHYSICAL LIMITATIONS AFFECTING LEARNING: Limited Mobility Electronically Signed By: HARJEET DEL ANGEL RN In Department: GASTROENTEROLOGY documented in this encounterEast [facility]10-16-2024 History and physical note * Heladio Mariee MD - 08/22/2024 10:30 AM EDT HISTORY AND PHYSICAL Steph Baumann, 74 year old male Current history and physical on file: Yes Is a new History and Physical required for today's visit? Yes Indication for procedure: Other surveillance of varices PROCEDURE(S) SCHEDULED FOR: EGD (Esophagogastroduodenoscopy) with or without biopsies, removal of polyps or lesions, dilation (any means), treatment of bleeding ( any means), Barrx treatment of Caleb's Esophagus, image tube placement or cryo therapy treatment based on clinical findings. Possible banding BASELINE BEHAVIOR: Calm BASELINE ORIENTATION: A & O x3 All medications and allergies reviewed: Yes Skin Assessment: Warm dry mucus membranes pink Airway/Respiratory Assessment: Airway: visualization of the uvula- Yes Mouth: opening greater than 2 fingerbreadths- Yes Neck: full range of motion- Yes Breath sounds clear/equal- Yes Cardiac Assessment: Regular rate and rhythm without murmur Abdominal Assessment: Abdomen soft, non-tender, no masses or organomegaly. Sedation Plan: Moderate Additional Comments: None Heladio Ramsey MD [facility] Work Phone: [phone] 366-614610-16-2024 History and physical note* Heladio Mariee MD - 08/22/2024 10:30 AM EDT HISTORY AND PHYSICAL Steph Baumann, 74 year old male Current history and physical on file: Yes Is a new History and Physical required for today's visit? Yes Indication for procedure: Other surveillance of varices PROCEDURE(S) SCHEDULED FOR: EGD (Esophagogastroduodenoscopy) with or without biopsies, removal of polyps or lesions, dilation (any means), treatment of bleeding ( any means), Barrx treatment of Caleb's Esophagus, image tube placement or cryo therapy treatment based on clinical findings. Possible banding BASELINE BEHAVIOR: Calm BASELINE ORIENTATION: A & O x3 All medications and allergies reviewed: Yes Skin Assessment: Warm dry mucus membranes pink Airway/Respiratory Assessment: Airway: visualization of the uvula- Yes Mouth: opening greater than 2 fingerbreadths- Yes Neck: full range of motion- Yes Breath sounds clear/equal- Yes Cardiac Assessment: Regular rate and rhythm without murmur Abdominal Assessment: Abdomen soft, non-tender, no masses or organomegaly. Sedation Plan: Moderate Additional Comments: None Heladio Ramsey MD documented in this encounterEast [facility]10-16-2024 Nurse Note* Harjeet Del Angel RN - 08/22/2024 9:55 AM EDT PRE OP LEARNING ASSESSMENT PROCEDURE/SURGERY: GI PROCEDURES: EGD READINESS TO LEARN COGNITIVE ABILITY: Alert and oriented MOTIVATION TO LEARN: Eager FAMILY SUPPORT: High - Very involved in pt care PATIENT LEARNS BEST BY: Individual Instruction FACTORS AFFECTING LEARNING: None PHYSICAL LIMITATIONS AFFECTING LEARNING: Limited Mobility Electronically Signed By: HARJEET DEL ANGEL RN In Department: GASTROENTEROLOGY [facility]10-08-[facility] Telephone encounter Note* Telephone Encounter - Franchesca Fontaine RN - 08/14/2024 10:22 AM EDT Attempted to reach the patient at the contact number that they provided [phone] (home) . 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 Failure to have a responsible adult accompany the patient to their procedure appointment prevents the useof sedation or anesthesia for their procedure; and can result in cancellation of the procedure NPO instructions were reviewed. Clear liquids the day before the procedure, stop all liquids 4 hours before the procedure Instructions to contact their primary care provider regarding their medications and which medications to stop in preparation for their procedure Instructions to completely read and follow the written instructions that they recieved regarding their procedure. Number to call with questions or concerns [phone] Number to call to cancel their procedure [phone] Franchesca Fontaine MA [facility]10-[facility] Miscellaneous Notes* Telephone Encounter - Franchesca Fontaine RN - 08/14/2024 10:22 AM EDT Attempted to reach the patient at the contact number that they provided [phone] (home) . 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 Failure to have a responsible adult accompany the patient to their procedure appointment prevents the useof sedation or anesthesia for their procedure; and can result in cancellation of the procedure NPO instructions were reviewed. Clear liquids the day before the procedure, stop all liquids 4 hours before the procedure Instructions to contact their primary care provider regarding their medications and which medications to stop in preparation for their procedure Instructions to completely read and follow the written instructions that they recieved regarding their procedure. Number to call with questions or concerns [phone] Number to call to cancel their procedure [phone] Franchesca Fontaine MA documented in this encounterEast [facility]08-14-2024 Nurse Note* Glenda Urena LPN - 06/20/2024 11:02 AM EDT Pt here for injection of Lupron. Given IM in left buttocks. Pt tolerated well. Glenda Urena LPN [facility]08-14-[facility] Nurse Note* Glenda Urena LPN - 06/20/2024 11:02 AM EDT Pt here for injection of Lupron. Given IM in left buttocks. Pt tolerated well. Glenda Urena LPN documented in this encounterEast [facility]08-14-2024 NoteHNO ID: [id number] Author: GLENDA URENA LPN Service: ? Author Type: LICENSED NURSE Type: Progress Notes Filed: 06/20/2024 11:04 Note Text: Pt here for injection of Lupron. Given IM in left buttocks. Pt tolerated well. [facility] History of Present illness Narrative* Glenda Urena LPN - 06/20/2024 10:59 AM EDT Pt here for injection of Lupron. Given IM in left buttocks. Pt tolerated well. Glenda Urena LPN documented in this encounterEast [facility]08-07-2024 NoteHNO ID: [id number] Author: MAXIMO SERRANO MD Service: ? Author Type: Physician Type: Progress Notes Filed: 06/13/2024 15:04 Note Text: CONSULT ORTHOPAEDIC: HIP PRIMARY CARE PHYSICIAN: Elisa Narvaez MD REFERRING PROVIDER: No referring provider defined for this encounter. ASSESSMENT AND PLAN This is a 74-year-old male who presents with right hip pain. Patient had a femoral neck fracture in 2019 and underwent a cementless hemiarthroplasty at that time. After his recovery he was walking with a walker for around 2 years. Unfortunately due to hip pain and deconditioning he has been wheelchair-bound for the last 1-1/2 years and has been unable to walk. He has had trouble with physical therapy due to the hip pain. Majority of his hip pain is on the lateral aspect of the hip he denies any groin pain. He has rigid stiffness in his knees that do not allow him to bend freely and he is also rigidity in his upper extremities. He has history of Parkinson's disease. Patient has a past medical history that significant for pulmonary hypertension, congestive heart failure, liver disease with cirrhosis, chronic kidney disease, peripheral vascular disease, seizure disorder, stroke, diabetes. He was previously seen at [facility] by another orthopedic surgeon. He was worked up for infection and his ESR and CRP will normal back in April when they were drawn. But he is continue to have severe pain. He is here with his POA today. Again patient has not walked in 1 and half years has been wheelchair-bound has an appointment to do this entire time. CRP on 04/10/2024 was 0.4 and ESR was 15 Impression: Right hip pain after hemiarthroplasty in 2019 Patient continues to have pain in his overall dependent and wheelchair-bound for the last year and a half. He has severe deconditioning as well as rigidity and stiffness likely from immobility as well as compounded with his Parkinson's disease. He has several comorbidities including liver failure, renal failure, stroke, congestive heart failure, peripheral vascular disease, malnutrition, as well as type 2 diabetes. His hemiarthroplasty appears to be well-fixed on the x-ray. His ESR and CRP are within normal limits. He likely has pain due to deconditioning and being wheelchair-bound for the last year and a half as well as probably pain related to trochanteric bursitis and some of the heavy bearing inside the acetabular portion due to the arthritis Discussed with the patient and the POA. Given his overall medical condition deconditioning and being wheelchair-bound from a year and a half I discussed with him that a total hip revision would be recently risky giving his complex medical history and that the guaranteed that he be able to walk again would be very low given that he has not walked in a year and a half and the guarantee that would be able to give him pain relief would also be low as majority of his pain is from the lateral aspect of his hip and from his rigidity due to his Parkinson's and deconditioning would not recommend a revision hip surgery at this time. Consult was placed to chronic pain management to help assist with his overall pain and discomfort. May follow-up with me as needed Diagnoses: (M25.551, G89.29) Chronic right hip pain (primary encounter diagnosis) (Z96.649) S/P hip hemiarthroplasty Diabetes: Steph has been diagnosed with Type 2 Diabetes. His last Hemoglobin A1C was 8.1 (03/23/2023). Pt is followed by Olga Styles for Type 2 Diabetes - last seen on 04/12/2023. Consult to the Endocrinology and Metabolic [place] (JOSIE) recommended prior to surgery. Area Deprivation Index (SONY) 04/16/2022 03/09/2023 SONY Score National Score 68 70 Patient Health Questionnaire (PHQ-9) 03/18/2024 05/16/2024 06/12/2024 PHQ-9 PHQ-2 Score 0 0 0 0 (0-4) minimal depression, (5-9) mild depression, (10-14) moderate depression, (15-19) moderately severe depression, (20-27) severe depression Bone Density Risk Screen Steph Baumann is at risk for bone loss. His last bone densitometry on file was completed on 11/01/2023. Risk Factors: Dx of Osteoporosis Use of Proton Pump Inhibitors History of falls Dx of Chronic Kidney Disease (CKD) Previous cancer of bone diagnosis Prednisone or use of systemic steroids Chronic Malnutrition Chronic Liver Disease Additional Risk Factors Obstructive Sleep Apnea (ALBINO) Coagulation Latest Ref Rng AND Units 09/02/2022 03/09/2023 02/15/2024 Coag/Hyper Coag Labs PT INR 0.9 - 1.3 1.2 1.3 1.3 PT Sec <13.1 sec 12.7 13.7 12.7 Latest Ref Rng AND Units 09/02/2022 03/09/2023 02/15/2024 Hemoglobin and Platelets Hemoglobin 13.0 - 17.0 g/dL 13.0 12.3 13.4 Platelet Count 150 - 400 k/uL 122 118 150 Malnutrition: No Malnutrition Screening Tool (MST) score on file- please complete the MST screening tool (click here to open) and refresh the note. ACTIVE PROBLEM LIST Brain Tumor (Hcc) Atrial Fibri (more content not included)...[facility]08-07-2024 History of Present illness Narrative* Maximo Serrano MD - 06/13/2024 2:56 PM EDT Images from the original note were not included. CONSULT ORTHOPAEDIC: HIP PRIMARY CARE PHYSICIAN: Elisa Narvaez MD REFERRING PROVIDER: No referring provider defined for this encounter. ASSESSMENT & PLAN This is a 74-year-old male who presents with right hip pain. Patient had a femoral neck fracture [id number] and underwent a cementless hemiarthroplasty at that time. After his recovery he was walking with a walker for around 2 years. Unfortunately due to hip pain and deconditioning he has been wheelchair-bound for the last 1-1/2 years and has been unable to walk. He has had trouble with physical therapy due to the hip pain. Majority of his hip pain is on the lateral aspect of the hip he denies anygroin pain. He has rigid stiffness in his knees that do not allow him to bend freely and he is alsorigidity in his upper extremities. He has history of Parkinson's disease. Patient has a past medical history that significant for pulmonary hypertension, congestive heart failure, liver disease with cirrhosis, chronic kidney disease, peripheral vascular disease, seizure disorder, stroke, diabetes. He was previously seen at [facility] by another orthopedic surgeon. He was worked up for infection and his ESR and CRP will normal back in April when they were drawn. But he is continue to have severe pain. He is here with his POA today. Again patient has not walked in 1 and half years has been wheelchair-bound has an appointment to [facility] entire time. CRP on 04/10/2024 was 0.4 and ESR was 15 Impression: Right hip pain after hemiarthroplasty in 2019 Patient continues to have pain in his overall dependent and wheelchair-bound for the last year and a half. He has severe deconditioning as well as rigidity and stiffness likely from immobility as well as compounded with his Parkinson's disease. He has several comorbidities including liver failure, renal failure, stroke, congestive heart failure, peripheral vascular disease, malnutrition, as well as type 2 diabetes. His hemiarthroplasty appears to be well-fixed on the x- ray. His ESR and CRP are within normal limits. He likely has pain due to deconditioning and being wheelchair-bound for the last year and a half as well as probably pain related to trochanteric bursitis and some of the heavy bearing inside the acetabular portion due to the arthritis Discussed with the patient and the POA. Given his overall medical condition deconditioning and being wheelchair-bound from a year and a half I discussed with him that a total hip revision would be recently risky giving his complex medical history and that the guaranteed that he be able to walk again would be very low given that he has not walked in a year and a half and the guarantee that would be able to give him pain relief would also be low as majority of his pain is from the lateral aspect of his hip and from his rigidity due to his Parkinson's and deconditioning would not recommend a revision hip surgery at this time. Consult was placed to chronic pain management to help assist with his overall pain and discomfort. May follow-up with me as needed Diagnoses: (M25.551, G89.29) Chronic right hip pain (primary encounter diagnosis) (Z96.649) S/P hip hemiarthroplasty Diabetes: Steph has been diagnosed with Type 2 Diabetes. His last Hemoglobin A1C was 8.1 (03/23/2023). Pt is followed by Olga Styles for Type 2 Diabetes - last seen on 04/12/2023. Consult to the Endocrinology and Metabolic [place] (JOSIE) recommended prior to surgery. Area Deprivation Index (SONY) 04/16/2022 03/09/2023 SONY Score National Score 68 70 Patient Health Questionnaire (PHQ-9) 03/18/2024 05/16/2024 06/12/2024 PHQ-9 PHQ-2 Score 0 0 0 0 (0-4) minimal depression, (5-9) mild depression, (10-14) moderate depression, (15-19) moderately severe depression, (20-27) severe depression Bone Density Risk Screen Steph Baumann is at risk for bone loss. His last bone densitometry on file was completed on 11/01/2023. Risk Factors: Dx of Osteoporosis Use of Proton Pump Inhibitors History of falls Dx of Chronic Kidney Disease (CKD) Previous cancer of bone diagnosis Prednisone or use of systemic steroids Chronic Malnutrition Chronic Liver Disease Additional Risk Factors Obstructive Sleep Apnea (ALBINO) Coagulation Latest Ref Rng & Units 09/02/2022 03/09/2023 02/15/2024 Coag/Hyper Coag Labs PT INR 0.9 - 1.3 1.2 1.3 1.3 PT Sec <13.1 sec 12.7 13.7 12.7 Latest Ref Rng & Units 09/02/2022 03/09/2023 02/15/2024 Hemoglobin and Platelets Hemoglobin 13.0 - 17.0 g/dL 13.0 12.3 13.4 Platelet Count 150 - 400 k/uL 122 118 150 Malnutrition: No Malnutrition Screening Tool (MST) score on file- please complete the MST screeningtool (click here to open) and refresh the note. ACTIVE PROBLEM LIST Brain Tumor (Hcc) Atrial [...] (Hcc) Cirrhosis of Liver With Ascites (Hcc) (Hcc) Hypoalbuminemia Mild Intermittent Asthma Without Complication [...] and Chronic Respiratory Failure With Hypoxia (Hcc) SUBJECTIVE CHIEF COMPLAINT: Hip Pain HPI: Steph Baumann is a 74 year old patient with the presenting complaint of New and Pain of the Right Hip. Steph Baumann has had progressive problems with the hip(s) multiple times a day overthe past 2 year(s) interfering with activities which include safety-increased risk for fall. The problem began limiting activities 1-3 years ago. Steph reports a current pain level of 8 (Hip-Right). He describes the pain as Sharp, Stabbing. The pain is Continuous . Interventions tried include Medication. PROMIS Physical Function Score Descriptive Summary for PROMIS Physical Function T-score = 15 (Percentile 0) Unable - Walk about the house. Unable - Wash and dry their body. Unable - Transfer to a bed and chair and back. 05/16/2024 PROMIS CAT Physical Function T-Score 15 (severe dysfunction) Percentile 0 FUNCTIONAL STATUS: Totally dependent PREVIOUS TREATMENTS: Past anti-inflammatory medications (not necessarily for this reason for visit): celecoxib, hydrocortisone sodium succ/PF, prednisone REVIEW OF SYSTEMS: GENERAL: Fatigue. PAIN ASSESSMENT: See HPI. CARDIOVASCULAR: CHF. RESPIRATORY: Severe COPD. MUSCULOSKELETAL: See HPI. NEURO: Denies CVA, seizures, headaches.. ENDOCRINE: Denies diabetes, thyroid disease.. No data to display PAST MEDICAL HISTORY No date: Adult failure to thrive No date: Atherosclerotic heart disease of [place] coronary artery without angina pectoris No date: Atrial fibrillation (HCC) Comment: CVA 2010, attributed to atrial fibrillation. Warfarin since. No date: Cardiomyopathy, unspecified (HCC) No date: Chronic combined systolic and diastolic congestive heart failure (HCC) No date: Chronic kidney disease, stage 3b (HCC) No date: Chronic respiratory failure with hypoxia (HCC) No date: Epilepsy, unspecified, not intractable, without status epilepticus (HCC) No date: Esophageal reflux 12/31/2013: Essential and other specified forms of tremor Comment: "All my life." No date: Essential hypertension, benign No date: Gastroesophageal reflux disease without esophagitis No date: H/O brain tumor Comment: Benign, resected. No date: H/O right and left heart catheterization 2010: H/O: stroke Comment: No functional residual. 04/13/2017. No date: Hemiplegia and hemiparesis following cerebral infarction affecting left non-dominant side (HCC) No date: Hypercholesterolemia No date: Hyperlipidemia, unspecified No date: Hypertensive chronic kidney disease with stage 1 through stage 4 chronic kidney disease, or unspecified chronic kidney disease 10/2019: ICD (implantable cardioverter-defibrillator), biventricular, in situ Comment: MRI compatible per Dr. Gonzáles No date: intermediate current use of insulin (HCC) No date: Metabolic encephalopathy No date: Muscle wasting and atrophy, not elsewhere classified, unspecified site No date: ALBINO (obstructive sleep apnea) Comment: BiPAP, [facility] 07/09/2014. Consistently compliant 04/14/2017. TO No date: Other malaise No date: Other symbolic dysfunctions No date: Parkinson's disease (HCC) No date: Personal history of transient ischemic attack (TIA), and cerebral infarction without residual deficits No date: Seizure disorder (HCC) No date: Type 2 diabetes mellitus with diabetic chronic kidney disease (HCC) No date: Type II or unspecified type diabetes mellitus without mention of complication, uncontrolled No date: Unspecified atrial flutter (HCC) No date: Unspecified cirrhosis of liver (HCC) No date: Unspecified protein-calorie malnutrition (HCC) PAST SURGICAL HISTORY 02/06/14: COLONOSCOPY FLX DX W/COLLJ SPEC WHEN PFRMD Comment: Colonoscopy 02/06/14: ESOPHAGOGASTRODUODENOSCOPY TRANSORAL DIAGNOSTIC Comment: EGD 2011: PAST SURGICAL HISTORY OF Comment: Resection of brain tumor. Dr. Tanner. Not able to afford MRIs yearly. 10/2019: PAST SURGICAL HISTORY OF Comment: Placement of BiVICD FAMILY HISTORY Problem Relation Age of Onset Diabetes Mother Coronary Artery Disease Mother Thyroid Mother thinks "over active" Diabetes Child daughter Social History Tobacco Use Smoking status: Former Packs/day: 1.00 Years: 46.00 Additional pack years: 0.00 Total pack years: 46.00 Types: Cigarettes Quit date: 07/20/2013 Years since quittin.9 Smokeless tobacco: Never Vaping Use Vaping Use: Never used Substance Use Topics Alcohol use: No Drug use: No Comment: Remote drugs, quit 1994. ALLERGIES: Metformin and Oxycodone-Acetaminophen MEDICATIONS: denosumab (PROLIA) 60 mg/mL Injection to be administered once every 6 months lactulose 20 gram/30 mL solution Take 45 mL by mouth three times a day. lisinopril (ZESTRIL) 5 mg tablet Take 5 mg by mouth once daily. insulin aspart U-100 (NOVOLOG) 100 unit/mL Inject subcutaneously three times a day before meals. aluminum-magnesium hydroxide-simethicone (MAALOX,MYLANTA,MAG-AL PLUS) 200-200-20 mg/5 mL suspensionTake 30 mL by mouth every 4 hours as needed. bisacodyl (DULCOLAX) 10 mg supp 10 mg by RECTAL route once daily as needed for constipation. sodium phosphate,mono-dibasic (FLEET ENEMA RECTAL) 1 Enema by RECTAL route as needed. dextrose (GLUCOSE GEL ORAL) Take 1 Dose by mouth as needed. GUAIFENESIN ORAL Take 10 mL by mouth every 4 hours as needed. magnesium hydroxide (MILK OF MAGNESIA ORAL) Take 30 mL by mouth as needed. methyl salicylate-menthol (MUSCLE RUB) 15-10 % topical cream Apply to right hip topically in the morning for pain. potassium chloride ER (KLOR-CON) 20 mEq tablet Take 20 mEq by mouth once daily. cholecalciferol (VITAMIN D-3) 50 mcg (2,000 unit) tablet Take 2,000 Units by mouth once daily. sertraline (ZOLOFT) 50 mg tablet Take 50 mg by mouth once daily. acetaZOLAMIDE (DIAMOX) 250 mg tablet Take 250 mg by mouth two times a day. docusate sodium (COLACE) 100 mg capsule Take 100 mg by mouth two times a day. pantoprazole DR (PROTONIX) 40 mg tablet Take 40 mg by mouth two times a day. dulaglutide (TRULICITY) 3 mg/0.5 mL pen injector Inject 3 mg subcutaneously one time a week. Tuesday GLUCAGON EMERGENCY KIT, HUMAN, INJECTION Inject 1 mL subcutaneously as needed. Sennosides 8.6 mg cap Take 17.2 mg by mouth daily at bedtime. carvedilol (COREG) 3.125 mg tablet Take 1 tablet by mouth twice daily. ondansetron orally disintegrating (ZOFRAN ODT) 4 mg disintegrating tablet Take 1 tablet by mouth every 8 hours as needed for nausea/vomiting. baclofen (LIORESAL) 20 mg tablet Take 10 mg by mouth three times a day. apixaban (ELIQUIS) 5 mg tab(s) Take 1 tablet by mouth twice daily. carbidopa-levodopa (SINEMET 25-100) 25-100 mg per tablet Take 2 tablets by mouth three times a day. loratadine (CLARITIN) 10 mg tablet Take 1 tablet by mouth once daily as needed. fluticasone-vilanterol (BREO ELLIPTA) 100-25 mcg/dose inhaler Inhale 1 Inhalation as instructed once daily. bicalutamide (CASODEX) 50 mg tablet Take 50 mg by mouth once daily. nitroglycerin sublingual (NITROQUICK) 0.4 mg SL tablet Dissolve 1 tablet under the tongue every 5 minutes as needed for Chest Pain. COMPOUNDED PRESCRIPTION [place] Dx: Z86.73, R53.1 CPAP BiPAP @ 9/13 cm of water with humidification. lifetime supplies. Dx ALBINO Multivitamin ORAL capsule Take 1 capsule by mouth once daily. rifAXIMin (XIFAXAN) 550 mg tablet TWICE A DAY (Patient not taking: Reported on 03/14/2024) sodium,potassium phosphates (POTASSIUM & SODIUM PHOSPHATES ORAL) Take by mouth. 280-160-250 MG one packet by mouth three times daily (Patient not taking: Reported on 05/01/2024) INSULIN LISPRO SUBCUTANEOUS Inject subcutaneously. Per sliding scale (Patient not taking: Reported on 05/01/2024) traMADol (ULTRAM) 50 mg tablet Take 50 mg by mouth every 8 hours as needed for pain. Take one tablet by mouth every eight hours as needed for pain spironolactone (ALDACTONE) 25 mg tablet Take 25 mg by mouth once daily. (Patient not taking: Reported on 05/01/2024) calcium carbonate (CALCIUM 300 ORAL) Take 1 tablet by mouth once daily. (Patient not taking: Reported on 06/13/2024) iron ps complex/B12/folic acid (FERREX 150 FORTE ORAL) Take 1 tablet by mouth once daily. (Patient not taking: Reported on 05/01/2024) bumetanide (BUMEX) 1 mg tablet Take 1 tablet by mouth once daily. lisinopril (ZESTRIL) 40 mg tablet Take 1 tablet by mouth once daily. (Patient not taking: Reported on 05/01/2024) insulin glargine (BASAGLAR KWIKPEN U-100 INSULIN) 100 unit/mL (3 mL) Inject 27 Units subcutaneouslydaily at bedtime. Adjust dose as directed (Patient taking differently: Inject 27 Units subcutaneously daily at bedtime. Adjust dose as directed) omeprazole (PRILOSEC) 20 mg capsule Take 1 capsule by mouth twice daily. (Patient not taking: Reported on 05/01/2024) tamsulosin (FLOMAX) 0.4 mg TAKE 1 CAPSULE BY MOUTH AT BEDTIME (Patient not taking: Reported on 03/14/2024) budesonide-formoterol (SYMBICORT) 80-4.5 mcg/actuation inhaler Inhale 2 Puffs as instructed twice daily. (Patient not taking: Reported on 05/01/2024) blood sugar diagnostic (BLOOD GLUCOSE TEST) test strip Test Two times a day. Insulin Dep? Yes E11.9DM 2 (Patient not taking: Reported on 05/01/2024) Lancets lancets Use as instructed to check blood sugar twice daily .Insulin Dep? Yes E11.9 DM 2 (Patient not taking: Reported on 05/01/2024) insulin needles, DISPOSABLE, (PEN NEEDLE) 31 gauge x 5/16" Use one needle per dose. One per day. DXE11.9 Insulin Yes (Patient not taking: Reported on 05/01/2024) albuterol HFA (VENTOLIN HFA) 90 mcg/actuation inhaler Inhale 2 Puffs as instructed every 6 hours asneeded for wheezing/shortness of breath. (Patient not taking: Reported on 05/01/2024) cyanocobalamin (VITAMIN B-12) 1,000 mcg tab Take 1,000 mcg by mouth once daily. (Patient not taking: Reported on 05/01/2024) OBJECTIVE PHYSICAL EXAM Ht 177.8 cm (5' 10") Wt 79.4 kg (175 lb) BMI 25.11 kg/m All other systems deferred. GENERAL: Appears healthy, well-nourished, no deformities. HABITUS: Thin GAIT: Normal, the patient did not have trouble getting onto the exam table. HIP EXAM: lateral incision well healed Right: ROM: Extension: 20 degree flexion contracture Flexion: 90 degrees Internal Rotation: 0 degrees External Rotation: 5 degrees Abduction: 20 degrees Adduction: 10 degrees Strength: Abduction 3/5 and Flexion 3/5 Palpation: Tenderness over right greater trochanter Log roll: painful. Straight leg raise: Positive, reproducing hip symptoms Neurovascular Status: Sensation Intact, Moves foot and ankle up & down, and 2+ dorsalis pedis DATA: Most recent hip imaging was completed on 03/24/2024 (XR HIP GENERAL 3V PELV/AP/LAT RIGHT) . Diagnostic tests reviewed for today's visit: Patient has right hip hemiarthroplasty cementless appears to be well-fixed and well aligned with nosigns of loosening. There are some acetabular degenerative changes seen in the right acetabulum. The following conditions were addressed during the office visit today: I spent a total of approximately 50 minutes on the date of the service which included preparing to see the patient, [id number] patient care, completing clinical documentation, obtaining and/or reviewing separately obtained history, performing a medically appropriate examination, counseling and educating the patient/family/caregiver, ordering medications, tests, or procedures, communicating withother HCPs (not separately reported), independently interpreting results (not separately reported),communicating results to the patient/family/caregiver, and care coordination (not separately reported). SIGNATURE: Maximo Serrano MD PATIENT NAME: Steph Baumann DATE: June 13, 2024 TIME: 2:56 PM [facility]* Luisa Barajas LPN - 2024 9:11 AM EDT Patient presents with: Imm/Inj Pt is identified by name and birthdate: Yes. Allergies and medications reviewed. Latex allergy? No. Does this patient have: Unplanned weight loss or gain of greater than 10 pounds, or a change of appetite over the last year? No Does the patient have any concerns about safety in the home/falls? Not at risk for falls non-ambulatory Has the patient fallen in the past year? No Does the patient have difficulty performing or completing routine daily living activities? yes Does this patient have concerns about personal safety? No Is patient having pain? Pain: No=0 (pain 0 on a scale of 0-10). Health Maintenance: Reviewed and updated. Does patient have MyChart access or Caregiver proxy: yes Pt/Caregiver willingness and readiness to learn assessed: Yes. Barriers: none Prolia injection administered, right arm, tolerated well, no immediate adverse reactions noted. Luisa Barajas LPN [facility]08-02-2024 Nurse Note* Luisa Barajas LPN - 2024 9:11 AM EDT Patient presents with: Imm/Inj Pt is identified by name and birthdate: Yes. Allergies and medications reviewed. Latex allergy? No. Does this patient have: Unplanned weight loss or gain of greater than 10 pounds, or a change of appetite over the last year? No Does the patient have any concerns about safety in the home/falls? Not at risk for falls non-ambulatory Has the patient fallen in the past year? No Does the patient have difficulty performing or completing routine daily living activities? yes Does this patient have concerns about personal safety? No Is patient having pain? Pain: No=0 (pain 0 on a scale of 0-10). Health Maintenance: Reviewed and updated. Does patient have MyChart access or Caregiver proxy: yes Pt/Caregiver willingness and readiness to learn assessed: Yes. Barriers: none Prolia injection administered, right arm, tolerated well, no immediate adverse reactions noted. Luisa Barajas LPN documented in this encounterEast [facility] Telephone encounter Note * Telephone Encounter - Corrine Bales RN - 05/23/2024 2:45 PM EDT Idalia from call line had this patient on line stating they could not make their 2:40 appt because their transportation cancelled ([place] He was wondering if they could just do a virtual visit today. I got a phone # and called back and spoke with the P.O.A. for the patient and let her know that Dr would do a virtual appt but they would still need to come into the office so he could see him.(New patient). The POA decided it was best to reschedule so we got patient anappoint 8/7 at 2:20 pm. POA is hoping the transportation [employer] comes thru with the sweet pickle maker. [facility]07-17-2024 Miscellaneous Notes* Telephone Encounter - Corrine Bales RN - 05/23/2024 2:45 PM EDT Idalia from call line had this patient on line stating they could not make their 2:40 appt because their transportation cancelled ([place]). He was wondering if they could just do a virtual visit today. I got a phone # and called back and spoke with the P.O.A. for the patient and let her know that Dr would do a virtual appt but they would still need to come into the office so he could see him.(New patient). The POA decided it was best to reschedule so we got patient anappoint 8/7 at 2:20 pm. POA is hoping the [employer] comes thru with the sweet pickle maker. documented in [facility] Telephone encounter Note * Telephone Encounter - Luisa Barajas LPN - 05/21/2024 8:33 AM EDT Results sent to pt. Via my chart Luisa Barajas LPN [facility] Miscellaneous Notes* Telephone Encounter - Luisa Barajas LPN - 05/21/2024 8:33 AM EDT Results sent to pt. Via my chart Luisa Barajas LPN * Telephone Encounter - Luisa Barajas LPN - 05/21/2024 7:24 AM EDT ----- Message from Jonnathan Swift DO sent at 05/20/2024 1:57 PM EDT ----- PSA remains undetectable. documented [facility] Telephone encounter Note * Telephone Encounter - Luisa Barajas LPN - 05/21/2024 7:24 AM EDT ----- Message from Jonnathan Swift DO sent at 05/20/2024 1:57 PM EDT ----- PSA remains undetectable. [facility]06-25-2024 Instructions* Patient Instructions* Kourtney Bhatia MD - 05/01/2024 4:32 PM EDT We shall start prolia as discussed- every 6 months documented in [facility] History of Present illness Narrative* Kourtney Bhatia MD - 05/01/2024 4:21 PM EDT Endocrinology and Metabolism [place] Follow up visit Chief Complaint: osteoporosis without current pathological fracture HPI: Steph Baumann is a 73 year [...] GERD, type 2 DM. He [facility] at [facility]. He is accompanied today by his POA/friend, Bob. Calcium: supplements 300 mg daily, dietary calcium: [...] no History of malabsorption: no Exercise: (type & duration) History of certain medication use: not concerning to cause bone demineralization Use of lithium or thiazides: no History of hyperparathyroidism: no Cancer history: prostate cancer History of radiation exposure: yes Family history of osteoporosis, calcium, or bone disorders: "not done" Family history of hip fractures: no Other endocrine diseases: mom had thyroid cancer Dental appt- was seen at [facility]- teeth cleaning scheduled on 28 Dec 2022, going to [facility] crowns done in January 2023 Interval history: Calcium labs done. He was taking adequate calcium, confirmed today again and is taking atleast 3 servings of dietary calcium in the form of cheese, yogurt and 3 glasses of milk, one with each meal. Taking vit D 2000 units daily Dental appt done and was suggested 2 caps charging 1800 which they would not be doing- no gum manipulative procedures needed PAST MEDICAL HISTORY Diagnosis Date Adult failure to thrive Atherosclerotic heart disease of tuscarora coronary artery without angina pectoris Atrial fibrillation [...] and hemiparesis following cerebral infarction affecting left non- dominant side (HCC) Hypercholesterolemia Hyperlipidemia, unspecified Hypertensive chronic kidney disease with stage 1 through stage 4 chronic kidney disease, or unspecified chronic kidney disease ICD (implantable cardioverter-defibrillator), biventricular, in situ 10/[address] 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 Consistently compliant 04/14/2017. TO Other malaise Other symbolic dysfunctions Parkinson's disease (HCC) Personal history of transient ischemic attack (TIA), [...] 2 Puffs as instructed every 6 hours asneeded for wheezing/shortness of breath. docusate sodium (COLACE) 100 mg capsule Take [...] time only. 1 mL sodium,potassium phosphates (POTASSIUM & SODIUM PHOSPHATES ORAL) Take by mouth. 280-160-250 [...] every eight hours as needed for pain spironolactone (ALDACTONE) 25 mg tablet Take 25 mg by mouth once daily. calcium carbonate (CALCIUM 300 ORAL) Take by mouth. iron ps complex/B12/folic acid (FERREX 150 FORTE ORAL) Take by mouth. carvedilol (COREG) 3.125 mg tablet Take 1 tablet by mouth twice daily. ondansetron orally disintegrating (ZOFRAN ODT) 4 mg disintegrating tablet Take 1 tablet by mouth every 8 hours as needed for nausea/vomiting. baclofen (LIORESAL) 20 mg tablet Take 20 mg by mouth three times a day. 10 MG by mouth three times daily as needed bumetanide (BUMEX) 1 mg tablet Take 1 tablet by mouth once daily. (Patient taking differently: Take1 mg by mouth once daily. Give only if gains three pounds in one day or five pounds in one week.) lisinopril (ZESTRIL) 40 mg tablet Take 1 tablet by mouth once daily. (Patient taking differently: Take 40 mg by mouth once daily. 5 MG one tablet by mouth daily) insulin glargine (BASAGLAR KWIKPEN U-100 INSULIN) 100 unit/mL (3 mL) Inject 27 Units subcutaneouslydaily at bedtime. Adjust dose as directed (Patient [...] TAKE 1 CAPSULE BY MOUTH AT BEDTIME budesonide-formoterol (SYMBICORT) 80-4.5 mcg/actuation inhaler Inhale 2 Puffs as instructed twice daily. fluticasone-vilanterol (BREO ELLIPTA) 100-25 mcg/dose inhaler Inhale 1 Inhalation as instructed once daily. bicalutamide (CASODEX) 50 mg tablet Take 50 mg by mouth once daily. blood sugar diagnostic (BLOOD GLUCOSE TEST) test strip Test Two times a day. 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 Yes E11.9 DM 2 insulin needles, DISPOSABLE, (PEN NEEDLE) 31 gauge x 5/16" Use one needle per dose. One per day. DXE11.9 Insulin Yes nitroglycerin sublingual (NITROQUICK) 0.4 mg SL tablet [...] mouth once daily. No current facility-administered medications on file prior to visit. ALLERGIES Allergen Reactions Metformin Diarrhea Even low dose caused diarrhea Oxycodone-Acetamino* Unknown FAMILY HISTORY Problem Relation Age of Onset Diabetes Mother Coronary Artery Disease Mother Thyroid Mother thinks "over active" Diabetes Child daughter REVIEW OF SYSTEMS Patient was not very conversant, but appears to be in pain. Physical Exam: BP 104/62 (BP Site: Left Arm, BP Position: Sitting, BP Cuff Size: Regular Adult) Pulse 69 Resp 20 Ht 175.3 cm (5' 9") Wt 79.4 kg (175 lb) SpO2 98% BMI 25.84 kg/m Body mass index is 25.84 kg/m . Examination was limited General: WNWD, NAD, sitting in wheelchair, not very conversant Eyes: conjunctivae are pink, and moist. No exopthalmos, lag, or stare Neck: The thyroid is normal, nontender, no cervical adenopathy Cardiovascular: regular rate Respiratory: unlabored breathing on room air Skin: normal, no rashes present Musculoskeletal: No spinal tenderness DATA REVIEW: Labs: Component Latest Ref Rng & Units 09/28/2023 Vitamin D 25 Hydroxy 31.0 - 80.0 ng/mL 24.2 (L) Component Latest Ref Rng & Units 03/09/2023 Protein, Total 6.3 - 8.0 g/dL 7.4 Albumin 3.9 - 4.9 g/dL 3.9 Calcium 8.5 - 10.2 mg/dL 9.4 Bilirubin, Total 0.2 - 1.3 mg/dL 0.7 Alkaline Phosphatase 38 - 113 U/L 129 (H) AST 14 - 40 U/L 21 ALT 10 - 54 U/L 6 (L) Glucose 74 - 99 mg/dL 222 (H) BUN 9 - 24 mg/dL 21 Creatinine 0.73 - 1.22 mg/dL 1.20 Sodium 136 - 144 mmol/L 137 Potassium 3.7 - 5.1 mmol/L 4.5 Chloride 97 - 105 mmol/L 103 CO2 22 - 30 mmol/L 22 Anion Gap 9 - 18 mmol/L 12 eGFR >=60 mL/min/1.73m 65 Latest Ref Rng 04/10/2024 Protein, Total 6.3 - 8.0 g/dL 6.9 Albumin 3.9 - 4.9 g/dL 4.2 Calcium 8.5 - 10.2 mg/dL 9.5 Bilirubin, Total 0.2 - 1.3 mg/dL 0.5 Alkaline Phosphatase 38 - 113 U/L 103 AST 14 - 40 U/L 12 (L) ALT 10 - 54 U/L 10 Glucose 74 - 99 mg/dL 119 (H) BUN 9 - 24 mg/dL 37 (H) Creatinine 0.73 - 1.22 mg/dL 1.32 (H) Sodium 136 - 144 mmol/L 134 (L) Potassium 3.7 - 5.1 mmol/L 4.1 Chloride 98 - 107 mmol/L 101 CO2 22 - 30 mmol/L 21 (L) Anion Gap 8 - 15 mmol/L 12 eGFR >=60 mL/min/1.73m 58 (L) Normalized Calcium 1.08 - 1.30 mmol/L 1.25 Ionized Calcium 1.08 - 1.30 mmol/L 1.34 (H) Vitamin D 25 Hydroxy 31.0 - 80.0 ng/mL 31.1 PTH, Intact 15 - 65 pg/mL 25 PTH Related Peptide 0.0 - 2.3 pmol/L 2.3 Legend: (L) Low (H) High DXA: 10/26/2023: personally reviewed and independently interpreted No comparison data Lumbar spine L1-L4: 0.971 g/cm2, T score: -1.1, z score -1.0, Left hip: Femoral neck: 0.509 g/cm2, T score -3.1, z score -2.1 total hip: 0.626 g/cm2, Tscore: -2.7, z score -2.1 TBS score: 1.132 Assessment/plan: In summary, Mr. Baumann is a 73 year old male who presents for evaluation of osteoporosis in the context of non metastatic prostate cancer on treatment with bicalutamide. Labs indicate primary hyperparathyroidism. 24 hr urine calicum could not be doen due to urinary incontinence He also has osteoporosis and low (may be acute kidney disease vs progressive worsening of kidney function), and surgery is a recommendation.I discussed with Bob in detail about the pathophysiology,natural course, side effects/complications of primary hyperparathyroidism, and its surgical indicati ons. I discussed repeating labs tro confirm as the total calcium, albumin corrected calcium is normal, while ionized calcium is slightly elevated with low normal PTH. Patient has multiple comorbidities, significant bone pain and hence medical therapy was also reviewed in detail. If confirmed, we discussed about imaging to locate the abnormal gland to remove, if found will give surgical referral. Otherwise, we reviewed medical therapy would be the best step of management. Due to hx of cancer, and lower kidney function, we discussed prolia as the possible medical therapyand that it is a SubQ injections which needs to be given every 6 months, as we follow BMD. This canbe continued indefinitely vs consolidation with Bps of discontinuing treatment after improvement ofBMD Encouraged weight bearing exercise as tolerated Advised to optimize calcium, vit D replacement- Advised on atleast 1200 mg of calcium a day, list of calcium rich foods given Dental appt done needing crowns and no gum manipulating procedures If surgical treatment is not a possibility or if PHPT is not confrirmed , she would like prolia to be given at our clinic to confirm it is given without fail to avoid worsening bone density due to missing of any doses- reviewed medication will need PA, after which they will be informed for him to schedule appt with our RN for administration Discussed bone labs every 6 months to 1 year with BMD every 1 to 2 years due to PHPT, if medical therapy is chosen Labs to be repeated Follow up every 6 months- for injections I spent a total of 45 minutes on the date of the service which included preparing to see the patient, [id number] patient care, completing clinical documentation, obtaining and/or reviewing separately obtained history, performing a medically appropriate examination, counseling and educating the pat ient/family/caregiver, ordering medications, tests, or procedures, and independently interpreting results (not separately reported). Kourtney Bhatia MD Endocrinology Associate Staff [facility] Endocrinology and Metabolism [place] [phone] documented in this encounterEast [facility] Telephone encounter Note * Telephone Encounter - Glenda Urena LPN - 03/26/2024 11:10 AM EDT Bob notified. April 09 apt with ortho in [place] for second opinion. Glenda Urena LPN [facility]05-20-2024 Miscellaneous Notes* Telephone Encounter - Glenda Urena LPN - 03/26/2024 11:10 AM EDT Bob notified. April 09 apt with ortho in [place] for second opinion. Glenda Urena LPN * Telephone Encounter - Jonnathan Swift DO - 03/25/2024 2:07 PM EDT Can let his POA Bob know that the x-ray did not show any obvious cause of his hip pain. He has a large hernia with small bowel extending to the scrotum. That I believe is chronic and I cannot rule that out as a cause of the pain but on exam he was very tender over the area of the greater trochanter so recommend starting with orthopedic evaluation here. Referral order placed. They are currently awaiting orthopedic opinion but is not scheduled till May elsewhere. Jonnathan Swift DO documented in this encounterEast [facility] Hospital05-19-2024 Telephone encounter Note * Telephone Encounter - Jonnathan Swift DO - 03/25/2024 2:07 PM EDT Can let his POA Bob know that the x-ray did not show any obvious cause of his hip pain. He has a large hernia with small bowel extending to the scrotum. That I believe is chronic and I cannot rule that out as a cause of the pain but on exam he was very tender over the area of the greater trochanter so recommend starting with orthopedic evaluation here. Referral order placed. They are currently awaiting orthopedic opinion but is not scheduled till May elsewhere. Jonnathan Swift DO [facility]05-15-2024 History of Present illness Narrative* Constance Samuels, (R) - 03/21/2024 12:40 PM EDT Radiology Service Progress Note PATIENT NAME: Steph Baumann DATE OF SERVICE: March 21, 2024 TIME: 1:03 PM PATIENT IDENTITY VERIFICATION COMPLETED USING TWO (2) IDENTIFIERS: Name and Date of confirmedby patient verbally. FALL SCREENING: Has the patient had 2 falls in the last year or 1 fall with injury or currently using an Ambulatory Assistive Device (Walker, Cane, Wheelchair, Crutches, etc.)? Yes, Patient High Riskfor Falls What interventions were put in place to prevent falls during this visit? Increased Observations by Caregivers PATIENT GENDER DATA: Male PATIENT RELEVANT IMPLANT DATA REVIEWED: Not Applicable PATIENT PRESENTS WITH AN IMPLANTABLE OR ATTACHED COMMUNICATIONS TECHNOLOGIST: No RADIOLOGY DEPARTMENT: General X-ray: Exam(s) Completed: Pelvis X-Ray: Pelvis with Hip Right PERIPHERAL IV DATA: Not applicable SIGNED BY: RT Heidi(R) March 21, 2024 1:03 PM documented in this encounterEast [facility]05-15-[facility]24 History of Present illness Narrative* Jonnathan Swift DO - 03/21/2024 12:07 PM EDT Oncologic problem(s): 1) Castrate sensitive prostate cancer. HPI: The patient is a 73-year-old male [...] biopsy on 11/12/2021. All 4 cores demonstrated Lottie grade 7, 2 of the cores were 4+3. One of those cores had 100% involvement and the other had 55%. CT the abdomen pelvis on 11/19/2021 demonstrated nodule in the right adrenal gland as well as evidence of a 1-1/2 x 1.3 cm hypodense nodule in the left adrenal gland potentially representing bilateraladenomas. There was enlargement the prostate gland measuring [...] 10/21/2022 and again on 01/27/2023 and 09/13/2023. Per initial office consultation: Insurance no longer covers Dr. Saravia. Seen by Rustam Masterson PA-C. Referred here. Most recent injection was about 4 months ago. On bicalutamide. No diarrhea. On lactulose BID for cirrhosis. Here today with POA from [place] (daughter's friend). Visits him every 2 weeks. Diagnosed with Parkinsons in April. Requires wheelchair. Was independent prior to that. Living at [facility]. Recently started having dysuria "deep in" when starts urinating. No gross hematuria. Start[place] antibiotic at [place]. Only pain is right hip and low back if sits too long. Right hip pain has been evaluated by his orthopedic several times as well as the low back pain. No clear etiology. Presents for ongoing oncologic management. Interim history: He is tolerating ADT well. Denies hot flashes. His only complaint today is that of right hip pain. 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 He was evaluated by his orthopedic surgeon. Hardware seems to be ingood position. Currently has an orthopedic surgery appointment in May for second opinion. Cannot participate in PT because of the pain. 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 Gonzáles intermediate current use of insulin (HCC) Metabolic encephalopathy Muscle wasting and atrophy, not elsewhere classified, unspecified site ALBINO (obstructive sleep apnea) BiPAP, [facility] 07/09/2014. Consistently compliant 04/14/2017. TO Other malaise Other symbolic dysfunctions Parkinson's disease (HCC) Personal history of transient ischemic attack (TIA), [...] SURGICAL HISTORY OF 10/2019 Placement of BiVICD ALLERGIES Allergen Reactions [place] [Hydrocodone-* Intolerance Hallucination Metformin Diarrhea Even low dose caused diarrhea Oxycodone-Acetamino* Unknown Current Outpatient Medications Medication Sig aluminum-magnesium hydroxide-simethicone (MAALOX,MYLANTA,MAG-AL PLUS) 200-200-20 mg/5 mL suspensionTake 30 mL by mouth every 4 hours as needed. bisacodyl (DULCOLAX) 10 mg supp 10 mg by RECTAL route once daily as needed for constipation. acetaZOLAMIDE (DIAMOX) 250 mg tablet Take 250 mg by mouth two times a day. docusate sodium (COLACE) 100 mg capsule Take 100 mg by mouth two times a day. carvedilol (COREG) 3.125 mg tablet Take 1 tablet by mouth twice daily. baclofen (LIORESAL) 20 mg tablet Take 10 mg by mouth three times a day. apixaban (ELIQUIS) 5 mg tab(s) Take 1 tablet by mouth twice daily. bumetanide (BUMEX) 1 mg tablet Take 1 tablet by mouth once daily. carbidopa-levodopa (SINEMET 25-100) 25-100 mg per tablet Take 2 tablets by mouth three times a day. bicalutamide (CASODEX) 50 mg tablet Take 50 mg by mouth once daily. albuterol HFA (VENTOLIN HFA) 90 mcg/actuation inhaler Inhale 2 Puffs as instructed every 6 hours asneeded for wheezing/shortness of breath. sertraline (ZOLOFT) 50 mg tablet Take 50 mg by mouth once daily. lactulose 20 gram/30 mL solution Take 45 mL by mouth three times a day. pantoprazole DR (PROTONIX) 40 mg tablet Take 40 mg by mouth two times a day. TRULICITY 1.5 mg/0.5 mL pen injector Inject 1.5 mg subcutaneously one time a week. rifAXIMin (XIFAXAN) 550 mg tablet TWICE A DAY (Patient not taking: Reported on 03/14/2024) GLUCAGON EMERGENCY KIT, HUMAN, INJECTION Inject subcutaneously one time only. 1 mL sodium,potassium phosphates (POTASSIUM & SODIUM PHOSPHATES ORAL) Take by mouth. 280-160-250 [...] every eight hours as needed for pain spironolactone (ALDACTONE) 25 mg tablet Take 25 mg by mouth once daily. calcium carbonate (CALCIUM 300 ORAL) Take 1 tablet by mouth once daily. iron ps complex/B12/folic acid (FERREX 150 FORTE ORAL) Take 1 tablet by mouth once daily. ondansetron orally disintegrating (ZOFRAN ODT) 4 mg disintegrating tablet Take 1 tablet by mouth every 8 hours as needed for nausea/vomiting. lisinopril (ZESTRIL) 40 mg tablet Take 1 tablet by mouth once daily. (Patient taking differently: Take 40 mg by mouth once daily. 5 MG one tablet by mouth daily) insulin glargine (BASAGLAR KWIKPEN U-100 INSULIN) 100 unit/mL (3 mL) Inject 27 Units subcutaneouslydaily at bedtime. Adjust dose as directed (Patient taking differently: Inject 27 Units subcutaneously daily at bedtime. Adjust dose as directed Inject 10 unit subcutaneously at bedtime for DM- hold if glucose less than 130 mg/ml) loratadine (CLARITIN) 10 mg tablet Take 1 tablet by mouth once daily as needed. omeprazole (PRILOSEC) 20 mg capsule Take 1 capsule by mouth twice daily. tamsulosin (FLOMAX) 0.4 mg TAKE 1 CAPSULE BY MOUTH AT BEDTIME (Patient not taking: Reported on 03/14/2024) budesonide-formoterol (SYMBICORT) 80-4.5 mcg/actuation inhaler Inhale 2 Puffs as instructed twice daily. (Patient taking differently: Inhale 2 Puffs as instructed two times a day as needed.) fluticasone-vilanterol (BREO ELLIPTA) 100-25 mcg/dose inhaler Inhale 1 Inhalation as instructed once daily. blood sugar diagnostic (BLOOD GLUCOSE TEST) test strip Test Two times a day. 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 Yes E11.9 DM 2 insulin needles, DISPOSABLE, (PEN NEEDLE) 31 gauge x 5/16" Use one needle per dose. One per day. DXE11.9 Insulin Yes nitroglycerin sublingual (NITROQUICK) 0.4 mg SL tablet Dissolve 1 tablet under the tongue every 5 minutes as needed for Chest Pain. COMPOUNDED PRESCRIPTION Four point cane Dx: Z86.73, R53.1 (Patient not taking: Reported on 03/14/2024) CPAP BiPAP @ 9/13 cm of water with humidification. lifetime supplies. Dx ALBINO cyanocobalamin (VITAMIN B-12) 1,000 mcg tab Take 1,000 mcg by mouth once daily. Multivitamin ORAL capsule Take 1 capsule by mouth once daily. No current facility-administered medications for this visit. Social History Tobacco Use Smoking status: Former Packs/day: 1.00 Years: 46.00 Additional pack years: 0.00 Total pack years: 46.00 Types: Cigarettes Quit date: 07/20/2013 Years since quittin.6 Smokeless tobacco: Never Vaping Use Vaping Use: Never used Substance Use Topics Alcohol use: No Drug use: No Comment: Remote drugs, quit 1994. Family History Problem Relation Age of Onset Diabetes Mother Coronary Artery Disease Mother Thyroid Mother thinks "over active" Diabetes Child daughter ROS: Constitutional: No fever. No drenching night sweats. Good appetite. Naps daily. Neuro: No recent SIMMS, vertigo, dizziness or imbalance. No symptoms of sensory neuropathy. HEENT: No recent change in voice, vision or hearing. Resp: No cough, wheeze of hemoptysis. No shortness of breath at rest. No BUSTAMANTE. CVS: No exertional chest pain, PND or orthopnea. No extremity swelling/edema. No symptoms of claudication. No painful or tender varicose veins. GI: No dysgeusia. No symptoms of stomatitis. No dysphagia or odynophagia. No reflux, n/v, change inbowel habits. No abdominal pain, bloating or distension. No black or bloody stools. : See above. Endo: Denies hot flashes. No polyuria or polydipsia. No heat or cold intolerance. Derm: No current rash. No history of jaundice. No diffuse pruritis. Heme: No unusual bleeding and unexplained bruising. Psych: Normal mood. PHYSICAL EXAM: Vitals: Blood pressure 89/57, pulse 65, temperature 36.2 C (97.1 F), temperature source Temporal, weight 79.4 kg (175 lb), SpO2 96%. Well-appearing and in no acute distress. EYES: Sclerae are anicteric bilaterally. LYMPHATIC: There is no cervical or supraclavicular adenopathy. RESPIRATORY: Inspiratory breath sounds are of normal intensity in all peters. No rales, wheezes or rhonchi. CARDIOVASCULAR: Rhythm is regular. ABDOMEN: The abdomen is nondistended. MS: Tender in the area of the greater trochanter. No mass or fluid collection noted. No redness or warmth. ASSESSMENT/PLAN: (C61) Prostate cancer (HCC) (primary encounter diagnosis) (C61, C79.51) 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) Specimen: -cT1c cN0 M0 stage IIIA adenocarcinoma the prostate. -Tolerating ADT with Eligard and bicalutamide very well. -PSA undetectable. -I discussed with him and his friend/POA the management of castration sensitive nonmetastatic prostate cancer. -Discussed bone health issues. Needs to have some dental work done but unaffordable. -Answered all of their questions to their satisfaction. Plan: -Lupron q 3 month Depo injection today. -Continue bicalutamide. -Monitor PSA every 3 months. -Plain film right hip today. -Will try to move up orthopedic appointment here pending results. Portions of this documentation were copied and pasted from previous office visit notes in order to provide a cohesive continuity of the history. The note has been reviewed and edited and updated as necessary. I spent a total of 20 minutes on the date of the service which included preparing to see the patient, [id number] patient care, completing clinical documentation, obtaining and/or reviewing separately obtained history, performing a medically appropriate examination, counseling and educating the pat ient/family/caregiver, ordering medications, tests, or procedures, and communicating results to thepatient/family/caregiver. Jonnathan Swift DO documented in this encounter[facility] History of Present illness Narrative* Glenda Urena LPN - 03/21/2024 11:50 AM EDT Patient here for Lupron injection, given IM in right buttocks. Pt tolerated well. For all other information regarding today, see today's OV note with Dr Swift. Glenda Urena LPN documented in this encounter[facility]05-08-[facility] History of Present illness Narrative* Merlin Loredo MD - 03/14/2024 11:17 AM EDT Follow up cirrhosis Last visit 1 year ago when I concluded: Impression: cirrhosis, stable MELD 17 August MELD today ??? Rec: continue same program 2. new labs and US 6 months I will call after CMP is available Interval Here today with friend, Bob Still in [place] He is off rifaximin (insurance) still on lactulose and he MS is baseline (normal for him) and multiple ammonia levels have been normal US today IMPRESSION: PROBABLE FINE MICRONODULARITY OF LIVER, SUGGESTING CIRRHOSIS. NO FOCAL SUSPICIOUS HEPATIC LESION. CHOLELITHIASIS AND GALLBLADDER SLUDGE. NO BILE DUCT DILATION. NO SPLENOMEGALY. Latest Ref Rng 02/15/2024 Protein, Total 6.3 - 8.0 g/dL 7.4 Albumin 3.9 - 4.9 g/dL 4.0 Calcium 8.5 - 10.2 mg/dL 10.1 Bilirubin, Total 0.2 - 1.3 mg/dL 0.3 Alkaline Phosphatase 38 - 113 U/L 96 AST 14 - 40 U/L 8 (L) ALT 10 - 54 U/L <5 (L) Glucose 74 - 99 mg/dL 133 (H) BUN 9 - 24 mg/dL 29 (H) Creatinine 0.73 - 1.22 mg/dL 1.14 Sodium 136 - 144 mmol/L 139 Potassium 3.7 - 5.1 mmol/L 4.2 Chloride 97 - 105 mmol/L 109 (H) CO2 22 - 30 mmol/L 21 (L) Anion Gap 9 - 18 mmol/L 9 eGFR >=60 mL/min/1.73m 69 PT Sec <13.1 sec 12.7 PT INR 0.9 - 1.3 1.3 Legend: (L) Low (H) High Platelets normal MELD 3.0: 10 at 02/15/2024 8:27 AM MELD-Na: 10 at 02/15/2024 8:27 AM Calculated from: Serum Creatinine: 1.14 mg/dL at 02/15/2024 8:27 AM Serum Sodium: 139 mmol/L (Using max of 137 mmol/L) at 02/15/2024 8:27 AM Total Bilirubin: 0.3 mg/dL (Using min of 1 mg/dL) at 02/15/2024 8:27 AM Serum Albumin: 4.0 g/dL (Using max of 3.5 g/dL) at 02/15/2024 8:27 AM INR(ratio): 1.3 at 02/15/2024 8:27 AM Age at listing (hypothetical): 73 years Sex: Male at 02/15/2024 8:27 AM Exam: BP 93/53 (BP Site: Left Arm, BP Position: Sitting, BP Cuff Size: Large Adult) Pulse 70 Temp 37.1 C (98.8 F) (Temporal) Ht 175.3 cm (5' 9") Wt 79.4 kg (175 lb) SpO2 100% BMI 25.84 kg/m HEENT: neg neuro: as before, little spontaneous conversation but is alert, oriented and without asterixis Impression: Stable cirrhosis Rec: continue same program; no lactulose unless Bob notices AMS xt testing in 6 months to include EGD banding; US Firboscan labs and visit with ut Merlin Loredo MD documented in this encounterEast [facility]05-08-[facility]24 History of Present illness Narrative* Neel Law RT(R) - 03/14/2024 10:15 AM EDT Radiology Service Progress Note PATIENT NAME: Steph Baumann DATE OF SERVICE: March 14, 2024 TIME: 10:33 AM PATIENT IDENTITY VERIFICATION COMPLETED USING TWO (2) IDENTIFIERS: Name and Date of confirmedby patient verbally. FALL SCREENING: Has the patient had 2 falls in the last year or 1 fall with injury or currently using an Ambulatory Assistive Device (Walker, Cane, Wheelchair, Crutches, etc.)? Yes, Patient High Riskfor Falls What interventions were put in place to prevent falls during this visit? Yellow "Falls Risk Wristband" Applied, Instructed Patient to Call for Help if Needed, Offered Assistance with Transfers/Clothing, Instructed Patient to Remain Seated (Not on Exam Table) Until Exam, and Increased Observations by Caregivers PATIENT GENDER DATA: Male PATIENT RELEVANT IMPLANT DATA REVIEWED: Not Applicable PATIENT PRESENTS WITH AN IMPLANTABLE OR ATTACHED COMMUNICATIONS TECHNOLOGIST: No RADIOLOGY DEPARTMENT: Ultrasound PERIPHERAL IV DATA: Not applicable SIGNED BY: RT Ksenia(R) March 14, 2024 10:33 AM documented in this [facility]03-13-[facility] History of Present illness Narrative* Dinorah Posada RN - 01/18/2024 2:40 PM EDT [facility] Telephonic Outreach Provider Action/FYI Routed updates to Dr. Parker Nelson with Bob HERNÁNDEZ, she noted Steph in at [facility] due to mobility issues and inability to care for himself. Contacted for: Routine Telephonic Outreach Contact made with patient: Yes Patient identified by name and date of . Discussed care with caregiver Are you experiencing any new or worsening symptoms you need to talk about today? Yes Based on foreclosure field inspector, the following disposition is advised: No symptoms or symptoms present, not severe. Routed to: No Action Needed MATT Education Provided this Outreach: No Dinorah Posada RN January 18, 2024 2:48 PM documented in this [facility]02-20-20[facility] Miscellaneous Notes* Telephone Encounter - Netta Espinal RN - 12/27/2023 8:39 AM EST Medications are not ordered or managed by or hepatology. Netta Espinal RN December 27, 2023 8:40 AM * Telephone Encounter - Luz Elena Ch - 12/22/2023 3:24 PM EST Faculty called in [employer] insurance will not pay, no prior authorization 3000 out of pocket expense Not a skilled in faculty Not a faculty pay can we increase Lactulose 2.Phosphates Pt does not like taking it Not skilled in faculty Will not pay Please call Luisana at [phone] Luz Elena Snell Commercial Property Manager ll documented in this encounterEast [facility]02-14-2024 Nurse Note* Glenda Urena LPN - 12/21/2023 3:00 PM EST Pt here for injection of Lupron. Given IM in left buttocks. Pt tolerated well. Glenda Urena LPN documented in this encounterEast [facility]01-30-2024 History of Present illness Narrative* Dinorah Posada RN - 12/06/2023 1:23 PM EST [facility] Telephonic Outreach Provider Jean Pierre/DOROTA Nelson with Bob/ Edgar she states Pt is at [facility] [place], considering AL due to mobility issues. He has a cell, chooses not to use it. Denies concerns or needs. ADL's Falls, Goals updated Contacted for: Routine Telephonic Outreach Contact made with patient: Yes Patient identified by name and date of . Are you experiencing any new or worsening symptoms you need to talk about today? Yes Based on foreclosure field inspector, the following disposition is advised: No symptoms or symptoms present, not severe. Routed to: No Action Needed MATT Education Provided this Outreach: No Dinorah Posada RN December 06, 2023 1:27 PM documented in this encounterEast [facility]11-24-2023 Miscellaneous Notes* Telephone Encounter - Thania Santos LPN - 09/30/2023 8:42 AM EST Latonia at [facility] notified and took a verbal order. Thania Santos LPN * Telephone Encounter - Thania Santos LPN - 09/30/2023 8:35 AM EST ----- Message from Jonnathan Swift DO sent at 09/29/2023 7:33 PM EST ----- Vit D is low. He is under [place] care at [facility] [place]. Please give order to start Vit D3 2000 units PO daily if not already on vit D supplement. If he already is then increase to 5000 units daily. Jonnathan Swift DO documented in this [facility]11-17-2023 History of Present illness Narrative* Dinorah Posada RN - 09/23/2023 2:38 PM EST [facility] Telephonic Outreach Provider Action/FYI CDM: CHF, Pulm Htn, Asthma Called Pt, unable to leave?a message to verify symptom status and needs. CHF Matt Education sent, Goals completed Contacted for: Goals/Falls/ADL Update Contact made with patient: No, unable to leave message. Will reattempt call Dinorah Posada RN September 23, 2023 2:38 PM documented in this encounterEast [facility]11-15-2023 History of Present illness Narrative* Lillian John RN - 09/21/2023 1:23 PM EST Steph Baumann was reviewed for potential clinical trial enrollment on [facility] #[id number] by the [facility] on 09/21/23. Per initial review, patient has disease type Prostate and appears to be not eligible based on Treatment . Requesting libertarian notified. Lillian John RN * Lillian John RN - 09/21/2023 1:23 PM EST Steph Baumann was reviewed for potential clinical trial enrollment on [facility] #[id number] by the [facility] on 09/21/23. Per initial review, patient has disease type Prostate and appears to be not eligible based on Treatment . Requesting libertarian notified. Lillian John RN documented in this [facility]11-09-2023 Miscellaneous Notes* Telephone Encounter - Reynaldo María CALVIN - 09/15/2023 8:42 AM EST Called Bob. Verified name and date of of patient. Informed- verbalizes understanding. States she speaks with patient daily and will let him know. María Reynaldo SIMPSON * Telephone Encounter - Rustam Masterson PA-C - 09/14/2023 7:46 PM EST PSA is good undetectable, still needs consult for medical oncology for ADT therapy which it look like he has set. KLEVER Zheng, DINESH GIBSON documented in this encounterEast [facility]11-08-2023 Miscellaneous Notes* Telephone Encounter - Constance Cisneros - 09/14/2023 3:43 PM EST Scheduled with Andra HERNÁNDEZ * Telephone Encounter - Luisa Barajas LPN - 09/14/2023 3:04 PM EST Schedule appt. With Dr. Jeniffer Barajas LPN * Telephone Encounter - Michelle Zaragoza - 09/14/2023 1:51 PM EST Procedure: CONSULT TO ONCOLOGY Status: Needs Scheduling Requested appt date: Authorizing: Rustam Masterson PA-C in [facility] Referral: [id number] (Authorized) Expires: 09/12/2024 Priority: Routine Diagnosis: Prostate cancer (HCC) [C61] Pt is requesting Dr. Swift. Please review and advise Michelle documented in this encounterEast [facility]10-30-2023 History of Present illness Narrative* Dinorah Posada RN - 09/05/2023 6:39 PM EDT [facility] Telephonic Outreach Provider Action/FYI CDM: CHF, Asthma Called Pt, unable to leave?a message to verify symptom status and needs Contacted for: Routine Telephonic Outreach Contact made with patient: No, unable to leave message. Will reattempt call Dinorah Posada RN September 05, 2023 6:39 PM * Dinorah Posada RN - 09/02/2023 10:26 AM EDT [facility] Telephonic Outreach Provider Action/FYI CDM: CHF, Asthma Called Pt, unable to leave?a message to verify symptom status and needs Contacted for: Routine Telephonic Outreach Contact made with patient: No, unable to leave message. Will reattempt call Dinorah Posada RN September 02, 2023 10:26 AM documented in this encounterEast [facility] Hospital10-06-2023 Miscellaneous Notes* Telephone Encounter - Netta Espinal RN - 08/12/2023 2:59 PM EDT Luz Elena had faxed orders. Netta Espinal RN August 12, 2023 3:00 PM * Telephone Encounter - Merlin Loredo MD - 08/12/2023 2:58 PM EDT Netta, Has this been taken care of? Thanks Merlin Loredo MD * Telephone Encounter - Luz Elena Ch - 08/03/2023 10:58 AM EDT called again saying that [facility] did not receive US order, labs. New fax number giving [phone] Will fax over items Luz Elena Snell Commercial Property Manager maya documented in this encounterEast [facility]09-14-2023 History of Present illness Narrative* Dinorah Posada RN - 07/21/2023 4:42 PM EDT [facility] Telephonic Outreach Provider Action/FYI CDM: CHF, Asthma Called Pt, unable to leave?a message to verify symptom status and needs Contacted for: Routine Telephonic Outreach Contact made with patient: No, unable to leave message. Will reattempt call Dinorah Posada RN July 21, 2023 4:42 PM * Dinorah Posada RN - 07/20/2023 10:34 AM EDT CDM Telephonic Outreach Provider Action/FYI CDM: CHF, Asthma Called Pt, unable to leave?a message to verify symptom status and needs Contacted for: Routine Telephonic Outreach Contact made with patient: No, unable to leave message. Will reattempt call Dinorah Posada RN July 20, 2023 10:34 AM documented in this encounterEast [facility]08-22-2023 History of Present illness Narrative* Dinorah Posada RN - 06/28/2023 11:16 AM EDT CDM Telephonic Outreach Provider Action/FYI CDM: CHF, Asthma Called Pt, unable to leave?a message to verify symptom status and needs Contacted for: Routine Telephonic Outreach Contact made with patient: No, unable to leave message. Will reattempt call Dinorah Posada RN June 28, 2023 11:16 AM * Dinorah Posada RN - 06/27/2023 12:19 PM EDT CDM Telephonic Outreach Provider Action/FYI CDM: CHF, Asthma Called Pt, unable to leave?a message to verify symptom status and needs Contacted for: Routine Telephonic Outreach Contact made with patient: No, unable to leave message. Will reattempt call Dinorah Posada RN June 27, 2023 12:19 PM documented in this encounterEast [facility] Hospital08-19-2023 Progress note Author Norris Orellana [facility] June 25, 2023 1:10pm Note Date/Time June 25, 2023 12 :51pm [facility] Medical Records Department [address] [place] [id number] Progress Note - Hospitalist 06/25/23 1248 MR#: [id number] Acct: [id number] Name: STEPH BAUMANN Rep #:[id number] : 1950 73 From: Norris Quarles PCP: Dr. Manuel Beebe MD Status:AD M IN Location: [place] [address] Reason for Visit Reason for Visit: Diagnoses Elevated white blood cell count, unspecified (06/21/23) Other disorders of bilirubin metabolism (06/21/23) Dehydration (06/21/23) Other toxic encephalopathy (06/21/23) Pain in right hip (06/21/23) Acute kidney failure, unspecified (06/21/23) Nausea with vomiting, unspecified (06/21/23) Altered mental status, unspecified (06/21/23) Other specified abnormalities of plasma proteins (06/21/23) Objective Data Objective Data Vital Signs: Vital Signs Temp Pulse Resp BP Pulse Ox O2 Del Method O2 Flow Rate 96.8 F L 70 16 118/59 L 97 Room Air 3 06/25/23 10:31 06/25/23 10:31 06/25/23 10:31 06/25/23 10:31 06/25/23 10:31 06/25/23 10:31 06/22/23 02:50 Oxygen Flow Rate (L/min) 3 Oxygen Delivery Method Room Air Weight: 169 lb 12.095 oz Body Mass Index (BMI) 25.0 Intake & Output: Intake and Output for Last 24 Hours 06/23/23 06/24/23 06/25/23 23:59 23:59 23:59 Intake Total 1080 / 1320 240 / 350 160 / 160 Output Total 1300 / 1300 550 / 550 400 / 400 Balance -220 / 20 -310 / -200 -240 / -240 Lab / Micro Data 06/25/23 05:51 06/25/23 05:51 Labs: Laboratory Results - last 24 hr 06/24/23 12:31: POC Glucose 118 H 06/24/23 16:53: POC Glucose 139 H 06/25/23 05:51: WBC 8.2, RBC 4.06 L, Hgb 13.1, Hct 39.7 L, MCV 97.8 H, MCH 32.3 H, MCHC 33.0, RDW Std Deviation 49.6 H, RDW Coeff of Yonathan 13.7, Plt Count 174, MPV 10.8, Immature Gran % (Auto) 0.700, Neut % (Auto) 81.0 H, Lymph % (Auto) 5.7L, [place] % (Auto) 7.7, Eos % (Auto) 4.2, Baso % (Auto) 0.7, Absolute Neuts (auto)6.6, Absolute Lymphs (auto) 0.47 L, Nucleated RBC % 0, Differential Comment SCANNED, Sodium 136, Potassium 4.3, Chloride 106, Carbon Dioxide 24.0, Anion Gap6, BUN 17, Creatinine 1.18, Estim Creat Clear Calc 57.42, Est GFR (MDRD) Af Amer78, Est GFR (MDRD) Non-Af 65, BUN/Creatinine Ratio 14.4, Glucose 151 H, Calcium 9.1 06/25/23 11:41: POC Glucose 139 H Micro: Microbiology 06/21/23 13:57 Nasal Secretion SARS-CoV-2 & FLU Antigen (Rapid) - Final Physical Exam Narrative Seen and examined. Patient is still confused and disoriented to time and place. Able to tell the current president correctly. He is awake and answers simple questions. Patienthalf of body is on bed and leg dangling from the edge of the bed. Physical exam General: Awake, oriented x2, Cooperative HEENT: Atraumatic, PERRLA, EOMI, Normocephalic Oral: Oral mucosa moist. No Gingival or Mucosal Lesions/ Ulcerations Neck: Supple, No JVD, Negative Carotid Bruits Lungs: Air entry diminished in bilateral lung bases. No crepitation/rhonchi Cardiovascular: Regular rate, Regular Rhythm, Normal S1, Normal S2, systolic murmurs Abdomen: Bowel Sounds Present, Soft, Non Tender, Non-Distended : No renal angle tenderness. No suprapubic tenderness. Extremities: No edema, Capillary Refill Less than 3 Seconds Skin: No rashes, No breakdown Musculoskeletal: No acute/severe tenderness to Palpation of Joints or Extremities including right hip or pelvis. ROM restricted on right hip. Statuspost right hip prosthesis Neurological: Cranial nerves II-XII grossly intact, DTR 2+/4. No acute focal neurological deficit. Psych/Mental Status: Flat affect Assessment & Plan Assessment/Plan (1) Nausea & vomiting: (2) Toxic metabolic encephalopathy: (3) Elevated troponin: (4) Acute dehydration: (5) VALENCIA (acute kidney injury): (6) Leukocytosis: (7) Hyperbilirubinemia: PLAN: Plan 1. VALENCIA on CKD stage IIIa -Baseline serum creatinine appears to be between 1.3 and 1.5 and measured to be 1.3 the day prior to presentation -Creatinine was 2.33 at the time of admission and now down to 1.82 today -Continue to hold diuretics(acetazolamide and Bumex) -Hold lisinopril -Avoid nephrotoxins as able -Continue gentle hydration at 75 cc an hour for another liter -Proceeding carefully with hydration due to poor EF at 25% -Repeat BMP shows improvement in creatinine 1.44 from 2.33. Looks patient VALENCIA has resolved. Creatinine at baseline 06/24: Creatinine is 1.1. BUN . 06/25: VALENCIA resolved. BUNs/creatinine 23/11.18. 2. Leukocytosis -Left shift is present -Chest x-ray is unremarkable -UA is not consistent with infection -COVID testing was negative -Recent C. difficile on 06/14/2023 was unremarkable -Likely reactive due to the above and will repeat CBC in a.m. -Hold on empiric antibiotics at this time 06/19: Leukocytosis resolved. 3. Toxic/metabolic encephalopathy although suspicion of hepatic encephalopathy as patient has cirrhosis. Patient is intermittently confused and disoriented sometimes fearful. Lactulosedose increased to 30 mL every 6 hours 06/25 continue lactulose dose. Patient had soft bowel movement today. 4. Right hip pain -Hip and pelvis x-ray reviewed. Nondisplaced fracture destructive or sclerotic lesion. Right hip prosthesis with no imaging evidence of loosening. ESR 24. CRP 76. -Continue Tylenol -Add lidocaine patch 06/24: Ortho surgery Dr. Jain consult reviewed and appreciated. X-ray was negative therefore further CT scan was done which also does not show evidence offracture. Therefore WBAT, PT and OT and orthopedic surgery signed off Hyperbilirubinemia -Bilirubin is not typically elevated and 1.6 today -May be reactive from the above as LFTs are normal -Alk phos is slightly elevated at 123 -If having right upper quadrant pain will consider ultrasound -Patient likely not a surgical candidate if there is any issue and would likely need a PERC drain to decompress the gallbladder 5. Troponin elevation -This appears to be chronic and is actually less than it has been previously -Patient with extremely poor ejection fraction -No chest pain present -No need for further work-up at this time. Does not seem to be ACS related 6. History of nonischemic cardiomyopathy -History of biventricular ICD/pacer -Currently holding diuretics due to dehydration -We will reinitiate when medically appropriate 7. CAD/HTN/persistent atrial fibrillation/WHO group 2 pulmonary hypertension -Continue apixaban 5 mg p.o. twice daily -Continue carvedilol 3.125 mg daily -Hold lisinopril -Monitor on telemetry -Continue to monitor blood pressure with dehydration -Diuretics on hold due to VALENCIA 8. History of cirrhosis -Continued outpatient follow-up -Continue lactulose daily 9. Parkinson's disease -Continue home carbidopa/levodopa 10. GERD -Continue home PPI DM-2 -Hold home Trulicity -Hold home glargine until p.o. intake is more established -SSI -Accu-Cheks as ordered 11. History of prostate cancer -Has completed radiation treatments 12. Chronic low back pain -Continue home pain medication regimen once mental status is improved DVT prophylaxis -Continue apixaban CODE STATUS Microbiology Past 72 Hours 06/21/23 13:57 Nasal Secretion SARS-CoV-2 & FLU Antigen (Rapid) - Final Laboratory Results 06/23/23 14:22: POC Glucose 172 H 06/23/23 17:01: POC Glucose 130 H 06/24/23 05:30: WBC 8.1, RBC 3.82 L, Hgb 12.2 L, Hct 38.3 L, MCV 100.3 H, MCH 31.9, MCHC 31.9 L, RDW Std Deviation 50.2 H, RDW Coeff of Yonathan 13.6, Plt Count 155, MPV 11.7, Immature Gran % (Auto) 0.700, Neut % (Auto) 82.5 H, Lymph % (Auto) 5.5 L, [place] % (Auto) 6.3, Eos % (Auto) 4.6, Baso % (Auto) 0.4, Absolute Neuts (auto) 6.7, Absolute Lymphs (auto) 0.44 L, Nucleated RBC % 0, DifferentialComment SCANNED, Sodium 137, Potassium 4.4, Chloride 107, Carbon Dioxide 26.0, Anion Gap 4 L, BUN 22 H, Creatinine 1.10, Estim Creat Clear Calc 61.59, Est GFR (MDRD) Af Amer 85, Est GFR (MDRD) Non-Af 70, BUN/Creatinine Ratio 20.0, Glucose 161 H, Calcium 8.8 06/24/23 12:31: POC Glucose 118 H Charges/Coding Visit Charges Inpatient E&M: 10099 Subs Hosp L2 06/25/23 1310 <Electronically signed by Norris Orellana MD> Cosigner Signature (if applicable): CC: ~ Signed [facility] Work Phone: [phone]) 337-365008-18-2023 Progress note Author Norris Orellana [facility] June 24, 2023 2:26pm Note Date/Time June 24, 2023 2: 26pm [facility] Medical Records Department [address] [place] [id number] Progress Note - Hospitalist 06/24/23 1421 MR#: [id number] Acct: [id number] Name: STEPH BAUMANN Rep #:[id number] : 1950 73 From: Norris Quarles PCP: Dr. Manuel Beebe MD Status:AD M IN Location: [place] [address]- Reason for Visit Reason for Visit: Diagnoses Elevated white blood cell count, unspecified (06/21/23) Other disorders of bilirubin metabolism (06/21/23) Dehydration (06/21/23) Other toxic encephalopathy (06/21/23) Pain in right hip (06/21/23) Acute kidney failure, unspecified (06/21/23) Nausea with vomiting, unspecified (06/21/23) Altered mental status, unspecified (06/21/23) Other specified abnormalities of plasma proteins (06/21/23) Objective Data Objective Data Vital Signs: Vital Signs Temp Pulse Resp BP Pulse Ox O2 Del Method O2 Flow Rate 97.8 F 70 16 133/81 H 98 Room Air 3 06/24/23 09:29 06/24/23 09:29 06/24/23 09:29 06/24/23 09:29 06/24/23 09:29 06/24/23 09:29 06/22/23 02:50 Oxygen Flow Rate (L/min) 3 Oxygen Delivery Method Room Air Weight: 169 lb 12.095 oz Body Mass Index (BMI) 25.0 Intake & Output: Intake and Output for Last 24 Hours 06/22/23 06/23/23 06/24/23 23:59 23:59 23:59 Intake Total 2040 / 2040 1080 / 1320 240 / 240 Output Total 800 / 800 1300 / 1300 550 / 550 Balance 1240 / 1240 -220 / 20 -310 / -310 Lab / Micro Data 06/24/23 05:30 06/24/23 05:30 Labs: Laboratory Results - last 24 hr 06/23/23 14:22: POC Glucose 172 H 06/23/23 17:01: POC Glucose 130 H 06/24/23 05:30: WBC 8.1, RBC 3.82 L, Hgb 12.2 L, Hct 38.3 L, MCV 100.3 H, MCH 31.9, MCHC 31.9 L, RDW Std Deviation 50.2 H, RDW Coeff of Yonathan 13.6, Plt Count 155, MPV 11.7, Immature Gran % (Auto) 0.700, Neut % (Auto) 82.5 H, Lymph % (Auto) 5.5 L, [place] % (Auto) 6.3, Eos % (Auto) 4.6, Baso % (Auto) 0.4, Absolute Neuts (auto) 6.7, Absolute Lymphs (auto) 0.44 L, Nucleated RBC % 0, DifferentialComment SCANNED, Sodium 137, Potassium 4.4, Chloride 107, Carbon Dioxide 26.0, Anion Gap 4 L, BUN 22 H, Creatinine 1.10, Estim Creat Clear Calc 61.59, Est GFR (MDRD) Af Amer 85, Est GFR (MDRD) Non-Af 70, BUN/Creatinine Ratio 20.0, Glucose 161 H, Calcium 8.8 06/24/23 12:31: POC Glucose 118 H Micro: Microbiology 06/21/23 13:57 Nasal Secretion SARS-CoV-2 & FLU Antigen (Rapid) - Final Radiography Diagnostic Testing: Radiology Impression Lower Extremity CT 06/23/23 13:51 IMPRESSION: Right hip arthroplasty without evidence for acute fracture or dislocation. Large right inguinal hernia containing small bowel, extending into the scrotum. Electronically Signed: Breanna Garcia MD at 16:02 EDT , Physical Exam Narrative Seen and examined. Patient is still confused and disoriented to time. He cannot mention the correct name of the president but he states it is not Trump but hard time recalling the correct president. He is awake and answers simple questions. Patient is fearful of unknown region and states he might fall from the bed. Complain of right hip pain. Patient was evaluated by Dr. Jain Physical exam General: Awake, oriented x2, Cooperative HEENT: Atraumatic, PERRLA, EOMI, Normocephalic Oral: Oral mucosa moist. No Gingival or Mucosal Lesions/ Ulcerations Neck: Supple, No JVD, Negative Carotid Bruits Lungs: Air entry diminished in bilateral lung bases. No crepitation/rhonchi Cardiovascular: Regular rate, Regular Rhythm, Normal S1, Normal S2, systolic murmurs Abdomen: Bowel Sounds Present, Soft, Non Tender, Non-Distended : No renal angle tenderness. No suprapubic tenderness. Extremities: No edema, Capillary Refill Less than 3 Seconds Skin: No rashes, No breakdown Musculoskeletal: No acute/severe tenderness to Palpation of Joints or Extremities including right hip or pelvis. ROM restricted on right hip. Statuspost right hip prosthesis Neurological: Cranial nerves II-XII grossly intact, DTR 2+/4. No acute focal neurological deficit. Psych/Mental Status: Flat affect Assessment & Plan Assessment/Plan (1) Nausea & vomiting: (2) Toxic metabolic encephalopathy: (3) Elevated troponin: (4) Acute dehydration: (5) VALENCIA (acute kidney injury): (6) Leukocytosis: (7) Hyperbilirubinemia: PLAN: Plan Nausea and vomiting -No further episodes -Continue to monitor -As needed antiemetics Resolved. VALENCIA on CKD stage IIIa -Baseline serum creatinine appears to be between 1.3 and 1.5 and measured to be 1.3 the day prior to presentation -Creatinine was 2.33 at the time of admission and now down to 1.82 today -Continue to hold diuretics(acetazolamide and Bumex) -Hold lisinopril -Avoid nephrotoxins as able -Continue gentle hydration at 75 cc an hour for another liter -Proceeding carefully with hydration due to poor EF at 25% -Repeat BMP shows improvement in creatinine 1.44 from 2.33. Looks patient VALENCIA has resolved. Creatinine at baseline 06/24: Creatinine is 1.1. BUN 22. Leukocytosis -Left shift is present -Chest x-ray is unremarkable -UA is not consistent with infection -COVID testing was negative -Recent C. difficile on 06/14/2023 was unremarkable -Likely reactive due to the above and will repeat CBC in a.m. -Hold on empiric antibiotics at this time 06/19: Leukocytosis resolved. Toxic/metabolic encephalopathy although suspicion of hepatic encephalopathy as patient has cirrhosis. Patient is intermittently confused and disoriented sometimes fearful. Lactulosedose increased to 30 mL every 6 hours Nausea To continue Right hip pain -Hip and pelvis x-ray reviewed. Nondisplaced fracture destructive or sclerotic lesion. Right hip prosthesis with no imaging evidence of loosening. ESR 24. CRP 76. -Continue Tylenol -Add lidocaine patch Ortho surgery Dr. Jain consult reviewed and appreciated. X-ray was negativetherefore further CT scan was done which also does not show evidence of fracture. Therefore WBAT, PT and OT and orthopedic surgery signed off Hyperbilirubinemia -Bilirubin is not typically elevated and 1.6 today -May be reactive from the above as LFTs are normal -Alk phos is slightly elevated at 123 -If having right upper quadrant pain will consider ultrasound -Patient likely not a surgical candidate if there is any issue and would likely need a PERC drain to decompress the gallbladder Troponin elevation -This appears to be chronic and is actually less than it has been previously -Patient with extremely poor ejection fraction -No chest pain present -No need for further work-up at this time History of nonischemic cardiomyopathy -History of biventricular ICD/pacer -Currently holding diuretics due to dehydration -We will reinitiate when medically appropriate CAD/HTN/persistent atrial fibrillation/WHO group 2 pulmonary hypertension -Continue apixaban 5 mg p.o. twice daily -Continue carvedilol 3.125 mg daily -Hold lisinopril -Monitor on telemetry -Continue to monitor blood pressure with dehydration -Diuretics on hold due to VALENCIA History of cirrhosis -Continued outpatient follow-up -Continue lactulose daily Parkinson's disease -Continue home carbidopa/levodopa GERD -Continue home PPI DM-2 -Hold home Trulicity -Hold home glargine until p.o. intake is more established -SSI -Accu-Cheks as ordered History of prostate cancer -Has completed radiation treatments Chronic low back pain -Continue home pain medication regimen once mental status is improved DVT prophylaxis -Continue apixaban CODE STATUS Microbiology Past 72 Hours 06/21/23 13:57 Nasal Secretion SARS-CoV-2 & FLU Antigen (Rapid) - Final Laboratory Results 06/23/23 14:22: POC Glucose 172 H 06/23/23 17:01: POC Glucose 130 H 06/24/23 05:30: WBC 8.1, RBC 3.82 L, Hgb 12.2 L, Hct 38.3 L, MCV 100.3 H, MCH 31.9, MCHC 31.9 L, RDW Std Deviation 50.2 H, RDW Coeff of Yonathan 13.6, Plt Count 155, MPV 11.7, Immature Gran % (Auto) 0.700, Neut % (Auto) 82.5 H, Lymph % (Auto) 5.5 L, [place] % (Auto) 6.3, Eos % (Auto) 4.6, Baso % (Auto) 0.4, Absolute Neuts (auto) 6.7, Absolute Lymphs (auto) 0.44 L, Nucleated RBC % 0, DifferentialComment SCANNED, Sodium 137, Potassium 4.4, Chloride 107, Carbon Dioxide 26.0, Anion Gap 4 L, BUN 22 H, Creatinine 1.10, Estim Creat Clear Calc 61.59, Est GFR (MDRD) Af Amer 85, Est GFR (MDRD) Non-Af 70, BUN/Creatinine Ratio 20.0, Glucose 161 H, Calcium 8.8 06/24/23 12:31: POC Glucose 118 H Charges/Coding Visit Charges Inpatient E&M: 71474 Subs Hosp L2 06/24/23 1426 <Electronically signed by Norris Orellana MD> Cosigner Signature (if applicable): CC: ~ Signed [facility] Work Phone: [phone] 475-154008-18-2023 Progress note Author Chandana Jain [facility] June 24, 2023 9:48am Note Date/Time June 24, 2023 9: 48am [facility] Medical Records Department [address] [place] [id number] Progress Note - Orthopedic 06/24/23 0947 MR#: [id number] Acct: [id number] Name: STEPH BAUMANN Rep #:[id number] : 1950 73 From: Chandana Jain MD PCP: Dr. Manuel Beebe MD Status:AD M IN Location: [place] [address] Subjective Subjective FU note after CT right hip to rule out fracture Objective Data Objective Data Vital Signs: Vital Signs Temp Pulse Resp BP Pulse Ox O2 Del Method O2 Flow Rate 97.8 F 70 16 133/81 H 98 Room Air 3 06/24/23 09:29 06/24/23 09:29 06/24/23 09:29 06/24/23 09:29 06/24/23 09:29 06/24/23 09:29 06/22/23 02:50 Oxygen Flow Rate (L/min) 3 Oxygen Delivery Method Room Air Weight: 169 lb 12.095 oz Body Mass Index (BMI) 25.0 Intake & Output: Intake and Output for Last 24 Hours 06/22/23 06/23/23 06/24/23 23:59 23:59 23:59 Intake Total 2040 / 2040 1080 / 1320 240 / 240 Output Total 800 / 800 1300 / 1300 400 / 400 Balance 1240 / 1240 -220 / 20 -160 / -160 Lab / Micro Data 06/24/23 05:30 06/24/23 05:30 Labs: Laboratory Results - last 24 hr 06/23/23 10:25: POC Glucose 202 H 06/23/23 14:22: POC Glucose 172 H 06/23/23 17:01: POC Glucose 130 H 06/24/23 05:30: WBC 8.1, RBC 3.82 L, Hgb 12.2 L, Hct 38.3 L, MCV 100.3 H, MCH 31.9, MCHC 31.9 L, RDW Std Deviation 50.2 H, RDW Coeff of Yonathan 13.6, Plt Count 155, MPV 11.7, Immature Gran % (Auto) 0.700, Neut % (Auto) 82.5 H, Lymph % (Auto) 5.5 L, [place] % (Auto) 6.3, Eos % (Auto) 4.6, Baso % (Auto) 0.4, Absolute Neuts (auto) 6.7, Absolute Lymphs (auto) 0.44 L, Nucleated RBC % 0, DifferentialComment SCANNED, Sodium 137, Potassium 4.4, Chloride 107, Carbon Dioxide 26.0, Anion Gap 4 L, BUN 22 H, Creatinine 1.10, Estim Creat Clear Calc 61.59, Est GFR (MDRD) Af Amer 85, Est GFR (MDRD) Non-Af 70, BUN/Creatinine Ratio 20.0, Glucose 161 H, Calcium 8.8 Micro: Microbiology 06/21/23 13:57 Nasal Secretion SARS-CoV-2 & FLU Antigen (Rapid) - Final Radiography Diagnostic Testing: Radiology Impression Lower Extremity CT 06/23/23 13:51 IMPRESSION: Right hip arthroplasty without evidence for acute fracture or dislocation. Large right inguinal hernia containing small bowel, extending into the scrotum. Electronically Signed: Breanna Garcia MD at 16:02 EDT , Assessment & Plan Assessment/Plan (1) Right hip pain: PLAN: 73 M right hip pain after a fall. No evidence for a fracture, therefore WBAT, recommend PT and OT, orthopedics signing off. Please call with concerns. 06/24/23 0948 <Electronically signed by Chandana Jain MD> Cosigner Signature (if applicable): CC: ~ Signed [facility] Work Phone: [phone] Progress note Author Norris Orellana [facility] June 23, 2023 5:32pm Note Date/Time June 23, 2023 7: 56am [facility] Medical Records Department [address] [facility] [place] [address] Progress Note - Hospitalist 06/23/232 MR#: [id number] Acct: [id number] Name: STEPH BAUMANN Rep #:[id number] : 1950 73 From: Norris Quarles PCP: Dr. Manuel Beebe MD Status:AD M IN Location: [place] [address] Reason for Visit Reason for Visit: Diagnoses Elevated white blood cell count, unspecified (06/21/23) Other disorders of bilirubin metabolism (06/21/23) Dehydration (06/21/23) Other toxic encephalopathy (06/21/23) Acute kidney failure, unspecified (06/21/23) Nausea with vomiting, unspecified (06/21/23) Altered mental status, unspecified (06/21/23) Other specified abnormalities of plasma proteins (06/21/23) Objective Data Objective Data Vital Signs: Vital Signs Temp Pulse Resp BP Pulse Ox O2 Del Method O2 Flow Rate 98.3 F 70 16 112/65 95 Room Air 3 06/23/23 02:38 06/23/23 02:38 06/23/23 02:38 06/23/23 02:38 06/23/23 02:38 06/23/23 03:40 06/22/23 02:50 Oxygen Flow Rate (L/min) 3 Oxygen Delivery Method Room Air Weight: 169 lb 12.095 oz Body Mass Index (BMI) 25.0 Intake & Output: Intake and Output for Last 24 Hours 06/21/23 06/22/23 06/23/23 23:59 23:59 23:59 Intake Total 0 / 200 2040 / 2040 80 / 80 Output Total 0 / 0 800 / 800 500 / 500 Balance 0 / 200 1240 / 1240 -420 / -420 Lab / Micro Data 06/23/23 05:13 06/23/23 05:13 Labs: Laboratory Results - last 24 hr 06/22/23 05:12: ESR 24 H, C-React Prot Ext Range 76.00 H 06/22/23 10:57: POC Glucose 184 H 06/22/23 14:28: POC Glucose 185 H 06/22/23 18:05: POC Glucose 170 H 06/22/23 20:43: POC Glucose 167 H 06/23/23 01:56: POC Glucose 177 H 06/23/23 05:13: WBC 9.9, RBC 3.84 L, Hgb 12.3 L, Hct 38.3 L, MCV 99.7 H, MCH 32.0, MCHC 32.1, RDW Std Deviation 50.3 H, RDW Coeff of Yonathan 13.9, Plt Count 149 L, MPV 11.9, Immature Gran % (Auto) 0.700, Neut % (Auto) 84.0 H, Lymph % (Auto) 4.7 L, [place] % (Auto) 5.8, Eos % (Auto) 4.5, Baso % (Auto) 0.3, Absolute Neuts (auto) 8.3 H, Absolute Lymphs (auto) 0.47 L, Nucleated RBC % 0, Differential Comment SCANNED, Sodium 136, Potassium 4.0, Chloride 105, Carbon Dioxide 25.0, Anion Gap 6, BUN 35 H, Creatinine 1.44 H, Estim Creat Clear Calc 47.05, Est GFR (MDRD) Af Amer 62, Est GFR (MDRD) Non-Af 51 L, BUN/Creatinine Ratio 24.3 H, Glucose 161 H, Calcium 9.0 06/23/23 06:19: POC Glucose 164 H Micro: Microbiology 06/21/23 13:57 Nasal Secretion SARS-CoV-2 & FLU Antigen (Rapid) - Final Radiography Diagnostic Testing: Radiology Impression Hip/Pelvis X-Ray 06/22/23 15:45 IMPRESSION: No evidence of displaced pelvic or hip fracture. Electronically Signed: Segundo George DO at 16:54 EDT , Physical Exam Narrative Seen and examined. Patient is confused and disoriented to time. He is awake and answers simple questions. Did not tell correct age but was able to tell correctly. Complain of right hip pain Physical exam General: Awake, oriented x2, Cooperative HEENT: Atraumatic, PERRLA, EOMI, Normocephalic Oral: Oral mucosa dry. No Gingival or Mucosal Lesions/ Ulcerations Neck: Supple, No JVD, Negative Carotid Bruits Lungs: Air entry diminished in bilateral lung bases. No crepitation/rhonchi Cardiovascular: Regular rate, Regular Rhythm, Normal S1, Normal S2, systolic murmurs Abdomen: Bowel Sounds Present, Soft, Non Tender, Non-Distended : No renal angle tenderness. No suprapubic tenderness. Extremities: No edema, Capillary Refill Less than 3 Seconds Skin: No rashes, No breakdown Musculoskeletal: No acute tenderness to Palpation of Joints or Extremities including right hip or pelvis. ROM restricted on right hip. Status post right hip prosthesis Neurological: Cranial nerves II-XII grossly intact, DTR 2+/4. No acute focal neurological deficit. Psych/Mental Status: Flat affect Assessment & Plan Assessment/Plan (1) Nausea & vomiting: (2) Toxic metabolic encephalopathy: (3) Elevated troponin: (4) Acute dehydration: (5) VALENCIA (acute kidney injury): (6) Leukocytosis: (7) Hyperbilirubinemia: PLAN: Plan Nausea and vomiting -No further episodes -Continue to monitor -As needed antiemetics Resolved. VALENCIA on CKD stage IIIa -Baseline serum creatinine appears to be between 1.3 and 1.5 and measured to be 1.3 the day prior to presentation -Creatinine was 2.33 at the time of admission and now down to 1.82 today -Continue to hold diuretics(acetazolamide and Bumex) -Hold lisinopril -Avoid nephrotoxins as able -Continue gentle hydration at 75 cc an hour for another liter -Proceeding carefully with hydration due to poor EF at 25% -Repeat BMP shows improvement in creatinine 1.44 from 2.33. Looks patient VALENCIA has resolved. Creatinine at baseline Leukocytosis -Left shift is present -Chest x-ray is unremarkable -UA is not consistent with infection -COVID testing was negative -Recent C. difficile on 06/14/2023 was unremarkable -Likely reactive due to the above and will repeat CBC in a.m. -Hold on empiric antibiotics at this time Toxic/metabolic encephalopathy -More alert today however still seems to be somewhat confused and response timesare delayed Right hip pain -Hip and pelvis x-ray reviewed. Nondisplaced fracture destructive or sclerotic lesion. Right hip prosthesis with no imaging evidence of loosening. ESR 24. CRP 76. -Continue Tylenol -Add lidocaine patch Ortho surgery Dr. Jain consulted. Hyperbilirubinemia -Bilirubin is not typically elevated and 1.6 today -May be reactive from the above as LFTs are normal -Alk phos is slightly elevated at 123 -If having right upper quadrant pain will consider ultrasound -Patient likely not a surgical candidate if there is any issue and would likely need a PERC drain to decompress the gallbladder Troponin elevation -This appears to be chronic and is actually less than it has been previously -Patient with extremely poor ejection fraction -No chest pain present -No need for further work-up at this time History of nonischemic cardiomyopathy -History of biventricular ICD/pacer -Currently holding diuretics due to dehydration -We will reinitiate when medically appropriate CAD/HTN/persistent atrial fibrillation/WHO group 2 pulmonary hypertension -Continue apixaban 5 mg p.o. twice daily -Continue carvedilol 3.125 mg daily -Hold lisinopril -Monitor on telemetry -Continue to monitor blood pressure with dehydration -Diuretics on hold due to VALENCIA History of cirrhosis -Continued outpatient follow-up -Continue lactulose daily Parkinson's disease -Continue home carbidopa/levodopa GERD -Continue home PPI DM-2 -Hold home Trulicity -Hold home glargine until p.o. intake is more established -SSI -Accu-Cheks as ordered History of prostate cancer -Has completed radiation treatments Chronic low back pain -Continue home pain medication regimen once mental status is improved DVT prophylaxis -Continue apixaban CODE STATUS Microbiology Past 72 Hours 06/21/23 13:57 Nasal Secretion SARS-CoV-2 & FLU Antigen (Rapid) - Final Laboratory Results 06/22/23 05:12: ESR 24 H, C-React Prot Ext Range 76.00 H 06/22/23 10:57: POC Glucose 184 H 06/22/23 14:28: POC Glucose 185 H 06/22/23 18:05: POC Glucose 170 H 06/22/23 20:43: POC Glucose 167 H 06/23/23 01:56: POC Glucose 177 H 06/23/23 05:13: WBC 9.9, RBC 3.84 L, Hgb 12.3 L, Hct 38.3 L, MCV 99.7 H, MCH 32.0, MCHC 32.1, RDW Std Deviation 50.3 H, RDW Coeff of Yonathan 13.9, Plt Count 149 L, MPV 11.9, Immature Gran % (Auto) 0.700, Neut % (Auto) 84.0 H, Lymph % (Auto) 4.7 L, [place] % (Auto) 5.8, Eos % (Auto) 4.5, Baso % (Auto) 0.3, Absolute Neuts (auto) 8.3 H, Absolute Lymphs (auto) 0.47 L, Nucleated RBC % 0, Differential Comment SCANNED, Sodium 136, Potassium 4.0, Chloride 105, Carbon Dioxide 25.0, Anion Gap 6, BUN 35 H, Creatinine 1.44 H, Estim Creat Clear Calc 47.05, Est GFR (MDRD) Af Amer 62, Est GFR (MDRD) Non-Af 51 L, BUN/Creatinine Ratio 24.3 H, Glucose 161 H, Calcium 9.0 06/23/23 06:19: POC Glucose 164 H Charges/Coding Visit Charges Inpatient E&M: 15126 Subs Hosp L2 06/23/23 1732 <Electronically signed by Norris Orellana MD> Cosigner Signature (if applicable): CC: ~ Signed [facility] Work Phone: [phone] Consult note Author Chandana Jain [facility] June 23, 2023 1:51pm Note Date/Time June 23, 2023 1: 51pm [facility] Medical Records Department [address] [place] [id number] Consultation - Orthopedics 06/23/23 1347 MR#: [id number] Acct: [id number] Name: STEPH BAUMANN Rep #:[id number] : 1950 73 From: Chandana Jain MD PCP: Dr. Manuel Beebe MD Status:AD M IN [facility] HPI Consult Data Date of Consult: 06/23/23 HPI Narrative HPI Narrative: STEPH BAUMANN, is a 73 M who presents with right hip pain after a ground- level fall. Per the patient they were walking at home tripped and fell is having pain on the lateral side of the hip. Patient states that they had their hip fixed in November of this year at [facility] although there is nonotes to this effect. Unsure who the surgeon was. [facility] Medical History (Updated 06/23/23 @ 13:50 by Chandana Jain MD) Acute and chronic respiratory failure with hypoxia Acute heart failure with reduced ejection fraction and diastolic dysfunction Adult failure to thrive Ambulates with cane Anticoagulant long-term use Anxiety Ascites Asthma Atherosclerosis of coronary artery of [place] heart without angina pectoris Atrial fibrillation and flutter Back pain Benign brain tumor Cardiac cirrhosis Cholelithiasis Chronic combined systolic and diastolic CHF (congestive heart failure) Chronic kidney disease (CKD) Chronic kidney disease (CKD), stage III (moderate) Cirrhosis of liver Cirrhosis of liver with ascites Congestive heart failure (CHF) CPAP (continuous positive airway pressure) dependence Debility Diabetes Diabetes mellitus, type II Essential (primary) hypertension Former smoker History of atrial fibrillation History of CVA (cerebrovascular accident) History of ulceration Hyperlipidemia Hypertension ICD (implantable cardioverter-defibrillator) in place Injury of back Insulin dependent diabetes mellitus Kidney disease Kidney stones Longstanding persistent atrial fibrillation Myocardial infarct Non-rheumatic tricuspid valve insufficiency Nonischemic cardiomyopathy NSTEMI (non-ST elevated myocardial infarction) (10/09/19) ALBINO (obstructive sleep apnea) Pacemaker Parkinson's disease Parkinson's disease 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 Right hip pain Right inguinal hernia Right ventricular systolic dysfunction Secondary pulmonary arterial hypertension Seizure disorder Seizures Sleep apnea Stasis edema of both lower extremities Stroke/cerebrovascular accident Thyroid disease Weakness Wears glasses Home Medications insulin glargine 100 unit/mL (3 mL) subcutaneous pen 37 unit subcut QHS [id number] [History Last Taken 04/12/23] bicalutamide 50 mg tablet (Casodex) 50 mg PO DAILY prostate 12/10/21 [History Last Taken 04/13/23] multivitamin 1 tab PO DAILY supplement 02/19/22 [History Last Taken 04/13/23] baclofen 20 mg tablet 20 mg PO TID BACK PAIN #90 tabs 12/23/22 [Rx Last Taken 04/13/23] apixaban 5 mg tablet (Eliquis) 5 mg PO BID blood thinner 04/13/23 [History Last Taken 04/13/23] carvedilol 3.125 mg tablet 3.125 mg PO BID HEART 04/13/23 [History Last Taken 04/12/23] dextrose 40 % oral gel (Glucose Gel) 15 g PO Q15M PRN Hypoglycemia 04/23/23 [History Last Taken Unknown] tramadol 50 mg tablet 50 mg PO Q12H PRN LOWER BACK PAIN 04/23/23 [History Last Taken Unknown] acetazolamide 250 mg tablet 250 mg PO BID 06/08/23 [History Last Taken Unknown] carbidopa 25 mg-levodopa 100 mg tablet 1 tab PO TID PARKINSONS 06/08/23 [History Last Taken Unknown] docusate sodium 100 mg capsule 100 mg PO BID CONSTIPATION 06/08/23 [History Last Taken Unknown] lisinopril 20 mg tablet 20 mg PO DAILY BLOOD PRESSURE 06/08/23 [History Last Taken Unknown] potassium chloride 20 mEq tablet,extended release 20 meq PO DAILY SUPPLEMENT 06/08/23 [History Last Taken Unknown] aluminum-magnesium hydroxide 225 mg-200 mg/5 mL oral suspension 30 ml PO Q4H PRN06/21/23 [History Last Taken Unknown] bisacodyl 10 mg rectal suppository 10 mg MA DAILY PRN constipation 06/21/23 [History Last Taken Unknown] bumetanide 2 mg tablet 2.5 mg PO DAILY FLUID 06/21/23 [History Last Taken Unknown] dulaglutide 1.5 mg/0.5 mL subcutaneous pen injector (Trulicity) 1.5 mg subcut FRDIABETES 06/21/23 [History Last Taken Unknown] lactulose 10 gram oral packet 10 g PO DAILY CONSTIPATION 06/21/23 [History Last Taken Unknown] lidocaine 5 % topical patch 1 patch topical DAILY RIGHT HIP PAIN 06/21/23 [History Last Taken Unknown] pantoprazole 40 mg tablet,delayed release 40 mg PO BID ACID REFLUX 06/21/23 [History Last Taken Unknown] sennosides 8.6 mg tablet (senna) 17.2 mg PO QHS CONSTIPATION 06/21/23 [History Last Taken Unknown] tramadol 50 mg tablet 50 mg PO Q6H PRN RIGHT HIP PAIN 06/21/23 [History Last Taken Unknown] Allergy/AdvReac Type Severity Reaction Status Date / Time acetaminophen AdvReac Other Verified 06/21/23 18:03 oxycodone AdvReac hallucinati Verified 06/21/23 12:27 ons Family History Daughter Heart disease valve replacement/chf Diabetes Mother Thyroid disorder Surgical History Biventricular ICD (implantable cardioverter-defibrillator) in place (10/12/19) H/O excision of tumor of brain meninges (2011) History of arthroplasty of right hip History of cardiac catheterization History of cardioversion (05/05/20) History of left heart catheterization (08/31/19) History of percutaneous coronary intervention (10/10/19) History of right and left heart catheterization History of right hip hemiarthroplasty History of tonsillectomy Social History household members: none Smoking Status: Former smoker how long ago did patient quit smokin years second hand exposure: No alcohol intake: never substance use type: does not use regla/yazidism: None seatbelt use: always Vital Signs Vital Signs Vital Signs: 06/22/23 14:40 06/22/23 20:19 06/22/23 20:38 Temperature 98.7 F 98.2 F Temperature Source Temporal Oral Pulse Rate 68 70 Pulse Strength Respiratory Rate 14 18 Respiratory Effort Normal Non-Labored Respiratory Depth Normal Respiratory Pattern Normal Blood Pressure 113/62 111/73 Blood Pressure Mean 79 85 Blood Pressure Source Monitor Monitor Blood Pressure Position Semi-Fowlers Semi-Fowlers Blood Pressure Location Right Arm Right Arm Pulse Ox 98 96 Oxygen Delivery Method Room Air Room Air Room Air 06/22/23 22:00 06/23/23 02:38 06/23/23 03:40 Temperature 98.3 F Temperature Source Oral Pulse Rate 70 Pulse Strength Weak (1+) Respiratory Rate 16 Respiratory Effort Normal Non-Labored Respiratory Depth Normal Respiratory Pattern Normal Blood Pressure 112/65 Blood Pressure Mean 80 Blood Pressure Source Monitor Blood Pressure Position Semi-Fowlers Blood Pressure Location Right Arm Pulse Ox 95 Oxygen Delivery Method Room Air Room Air 06/23/23 08:38 06/23/23 10:00 Temperature 96.9 F L Temperature Source Temporal Pulse Rate 71 Pulse Strength Weak (1+) Respiratory Rate 18 Respiratory Effort Respiratory Depth Respiratory Pattern Blood Pressure 134/79 H Blood Pressure Mean 97 Blood Pressure Source Monitor Blood Pressure Position Semi-Fowlers Blood Pressure Location Right Arm Pulse Ox 99 Oxygen Delivery Method Room Air Weight Weight: 169 lb 12.095 oz Body Mass Index (BMI) 25.0 Physical Exam Const alert and no apparent distress; Negative for oriented x3 General Appearance: cooperative Extremity normal capillary refill and no calf tenderness Extremity Narrative: Lateral right hip surgical incision appears clean dry well-healed no redness warmth drainage no fluctuance no masses. Thigh compartments are soft. Mild laterally based hip pain with palpation at the greater trochanter area as well as with internal and external rotation of the hip. There is normal sensation the foot foot is warm and well-perfused good dorsalis pedis pulse able to wigglethe toes dorsiflex and plantarflex the foot as well as independently lift the right lower extremity. Lab / Micro Data 06/23/23 05:13 06/23/23 05:13 Labs: Laboratory Results - last 24 hr 06/22/23 05:12: ESR 24 H 06/22/23 14:28: POC Glucose 185 H 06/22/23 18:05: POC Glucose 170 H 06/22/23 20:43: POC Glucose 167 H 06/23/23 01:56: POC Glucose 177 H 06/23/23 05:13: WBC 9.9, RBC 3.84 L, Hgb 12.3 L, Hct 38.3 L, MCV 99.7 H, MCH 32.0, MCHC 32.1, RDW Std Deviation 50.3 H, RDW Coeff of Yonathan 13.9, Plt Count 149 L, MPV 11.9, Immature Gran % (Auto) 0.700, Neut % (Auto) 84.0 H, Lymph % (Auto) 4.7 L, [place] % (Auto) 5.8, Eos % (Auto) 4.5, Baso % (Auto) 0.3, Absolute Neuts (auto) 8.3 H, Absolute Lymphs (auto) 0.47 L, Nucleated RBC % 0, Differential Comment SCANNED, Sodium 136, Potassium 4.0, Chloride 105, Carbon Dioxide 25.0, Anion Gap 6, BUN 35 H, Creatinine 1.44 H, Estim Creat Clear Calc 47.05, Est GFR (MDRD) Af Amer 62, Est GFR (MDRD) Non-Af 51 L, BUN/Creatinine Ratio 24.3 H, Glucose 161 H, Calcium 9.0, Phosphorus 2.3 L, Magnesium 2.2, Total Bilirubin 0.80, Direct Bilirubin 0.42 H, AST 31, ALT 28, Alkaline Phosphatase 125 H, TotalProtein 7.1, Albumin 3.0 L, Globulin 4.1 06/23/23 06:19: POC Glucose 164 H 06/23/23 09:00: Ammonia 41.0 H 06/23/23 10:25: POC Glucose 202 H Radiology Impression Hip/Pelvis X-Ray 06/22/23 15:45 IMPRESSION: No evidence of displaced pelvic or hip fracture. Electronically Signed: Segundo George DO at 16:54 EDT Reading Location ID and State: [facility] / [place] Tel [phone], Service support , agree w radiologist, press fit hemiarthroplasty looks well fixed and placed, no obvious fracture or other complication Assessment & Plan Assessment/Plan (1) Right hip pain: PLAN: 73-year-old man with right hip pain after a fall in the setting of prior uncemented hemiarthroplasty. The radiographs are negative however the patient is having difficulty ambulating therefore for now I would recommend to make the patient toe-touch weightbearing and I will order a stat CT scan of the right hipto rule out a fracture. I explained this to the patient. No concerns of an infection at the moment, would not recommend getting a hip aspiration given the exam and hx of low energy trauma. 06/23/23 1351 <Electronically signed by Chandana Jain MD> Cosigner Signature (if applicable): CC: Dr. Quynh Araya DO; Dr. Manuel Beebe MD; Dr. Maximo Addison MD; Dr. Chandana Jain MD~ Signed [facility] Work Phone: [phone]) 555-964508-16-2023 Progress note Author Quynh Araya [facility] June 22, 2023 12:49pm Note Date/Time June 22, 2023 8: 14am [facility] Medical Records Department [address] [place] [address] Progress Note - Hospitalist 06/22/23 0754 MR#: [id number] Acct: [id number] Name: STEPH BAUMANN Rep #:[id number] : 1950 73 From: Quynh Araya DO PCP: Dr. Manuel Beebe MD Status:AD M IN Location: [place] [id number] Reason for Visit Reason for Visit: Mental status/nausea/vomiting Subjective Subjective Mr. Baumann is a 73-year-old -Togolese male who presented to the emergency department at [facility] from the nursing facility with altered mental status as well as nausea and vomiting. He was quite obtunded on presentation and lethargic so POA gave most of his history. The POAis a friend of the patient's daughter who previously and the patient has noother family. She states that he had been doing fairly well at the nursing homebut transitioned into a long-term stay and last night he did not eat any of his food and then on the morning of admission he had some nausea and started to vomit. He was not able to eat breakfast. On presentation he had a temperature of 96.8, pulse rate was 72, blood pressure was 113/73, respiratory was 20 and oxygen saturations were 96% on room air. His CBC was overall unremarkable with a normal white count however differential was not obtained. His chemistry panelshowed significant VALENCIA with a serum BUN of 35 and a creatinine of 2.33 (baselineserum creatinine is variable but seems to run between 1.2 on 1.5. He had a creatinine checked on 06/20/2023 and it was 1.30. He has a known cardiomyopathy with an EF of 25% and stage III diastolic dysfunction along with global right ventricular dysfunction and severe left atrial enlargement along with elevated right ventricular systolic pressures at 63 mmHg. This was noted on his last echo from 04/25/2023. His UA was not consistent with infection. His chest x-raywas unremarkable and he remains on room air. Today his white count is up and hehas a left shift. Renal function is improving. No further nausea or vomiting overnight. Patient is awake and alert and answersquestions intermittently however he is not consistent with this. He is aware heis in [place] and was able to tell me was June 2023 however he would not answer any further questions. He did complain of hip pain and we will get him a lidocaine patch for this. Did say his pain was chronic Objective Data Objective Data Vital Signs: Vital Signs Temp Pulse Resp BP Pulse Ox O2 Del Method O2 Flow Rate 98.6 F 70 20 H 103/85 H 96 Room Air 3 06/22/23 02:50 06/22/23 02:50 06/22/23 02:50 06/22/23 02:50 06/22/23 02:50 06/22/23 02:50 06/22/23 02:50 Oxygen Flow Rate (L/min) 3 Oxygen Delivery Method Room Air Weight: 77 kg Body Mass Index (BMI) 25.0 Intake & Output: Intake and Output for Last 24 Hours 06/20/23 06/21/23 06/22/23 23:59 23:59 23:59 Intake Total 0 / 200 200 / 200 Output Total 0 / 0 100 / 100 Balance 0 / 200 100 / 100 Lab / Micro Data 06/22/23 05:12 06/22/23 05:12 Labs: Laboratory Results - last 24 hr 06/21/23 13:10: WBC 9.2, RBC 4.65, Hgb 15.0, Hct 46.3, MCV 99.6 H, MCH 32.3 H, MCHC 32.4, RDW Std Deviation 50.8 H, RDW Coeff of Yonathan 14.4, Plt Count 204, MPV 11.5, Sodium 142, Potassium 4.2, Chloride 107, Carbon Dioxide 27.0, Anion Gap 8, BUN 35 H, Creatinine 2.33 H, Estim Creat Clear Calc 29.08, Est GFR (MDRD) Af Amer 36 L, Est GFR (MDRD) Non-Af 30 L, BUN/Creatinine Ratio 15.0, Glucose 116 H,Calcium 9.7, Ammonia 30.0, Troponin I High Sens 104 H, Lipase < 10 L 06/21/23 13:25: Urine Color Yellow, Urine Clarity Clear, Urine pH 6.0, Ur Specific Shanks 1.020, Urine Protein 30 H, Urine Glucose (UA) Normal, Urine Ketones 5 H, Urine Occult Blood Negative, Urine Nitrite Negative, Urine Bilirubin 1 H, Urine Urobilinogen 1 H, Ur Leukocyte Esterase 25 H, Urine RBC 0-5SEEN, Urine WBC 0-5 SEEN, Ur Squamous Epith Cells 0-5 SEEN, Urine Bacteria RARE,Urine Mucus 0 SEEN 06/21/23 13:57: B-Natriuretic Peptide 43.4 06/21/23 20:42: POC Glucose 95 06/22/23 01:12: POC Glucose 184 H 06/22/23 05:05: POC Glucose 164 H 06/22/23 05:12: WBC 16.7 H, RBC 4.16 L, Hgb 13.6, Hct 41.5, MCV 99.8 H, MCH 32.7H, MCHC 32.8, RDW Std Deviation 51.0 H, RDW Coeff of Yonathan 14.2, Plt Count 154, MPV 11.3, Immature Gran % (Auto) 0.700, Neut % (Auto) 92.0 H, Lymph % (Auto) 2.3L, [place] % (Auto) 4.1, Eos % (Auto) 0.6, Baso % (Auto) 0.3, Absolute Neuts (auto)15.4 H, Absolute Lymphs (auto) 0.38 L, Nucleated RBC % 0, Differential Comment SCANNED, Sodium 138, Potassium 3.9, Chloride 106, Carbon Dioxide 27.0, Anion Gap5, BUN 40 H, Creatinine 1.82 H, Estim Creat Clear Calc 37.23, Est GFR (MDRD) Af Amer 48 L, Est GFR (MDRD) Non-Af 39 L, BUN/Creatinine Ratio 22.0 H, Glucose 144 H, Calcium 9.3, Total Bilirubin 1.60 H, AST 17, ALT 20, Alkaline Phosphatase 123H, Total Protein 7.4, Albumin 3.1 L, Globulin 4.3 H, Albumin/Globulin Ratio 0.7 L Micro: Microbiology 06/21/23 13:57 Nasal Secretion SARS-CoV-2 & FLU Antigen (Rapid) - Final Radiography Diagnostic Testing: Radiology Impression Brain CT 06/21/23 13:28 IMPRESSION: Chronic involutional changes of the brain. Stable chronic changes more prominent in the right cerebral hemisphere. Electronically Signed: Erik Sandoval MD at 14:41 EDT , Chest X-Ray 06/21/23 13:28 IMPRESSION: Cardiomegaly. Prominence of the central pulmonary arteries. The lungs are clear. Electronically Signed: Erik Sandoval MD at 14:39 EDT , Physical Exam Const alert; Negative for oriented x3 Constitutional Narrative: Older, -Togolese, male, sitting up in bed appears comfortable, nontoxic, oriented to self, was able to say he was in [place] and that was June 2023 butwould not fully participate in questions, appeared somewhat uncomfortable, nontoxic HEENT head/scalp atraumatic and moist oral mucous membranes HEENT Narrative: Mallampati 1, no thrush Head and Scalp: normocephalic Resp normal respiratory effort, no retractions, no use of accessory muscles and clearto auscultation bilaterally Auscultation: Negative for rales, rhonchi or wheezes Cardio regular rate, S1 normal heart sound, S2 normal heart sound, no murmurs, no rub, no gallops and no clicks; Negative for regular rhythm GI normal to inspection, nondistended, normoactive bowel sounds, soft to palpation and non-tender Extremity no clubbing, cyanosis or edema Extremity Narrative: Pedal pulses are 2+ Neuro oriented x3, moves all extremities and no focal motor deficits Neuro Narrative: Pain with movement of his right hip Psych cooperative; Negative for thought process normal Psych Narrative: Affect is extremely flat, response time is slow Attitude: bizarre Speech: delayed Assessment & Plan Assessment/Plan (1) Nausea & vomiting: (2) Toxic metabolic encephalopathy: (3) Elevated troponin: (4) Acute dehydration: (5) VALENCIA (acute kidney injury): (6) Leukocytosis: (7) Hyperbilirubinemia: PLAN: Plan Nausea and vomiting -No further episodes -Continue to monitor -As needed antiemetics VALENCIA on CKD stage IIIa -Baseline serum creatinine appears to be between 1.3 and 1.5 and measured to be 1.3 the day prior to presentation -Creatinine was 2.33 at the time of admission and now down to 1.82 today -Continue to hold diuretics(acetazolamide and Bumex) -Hold lisinopril -Avoid nephrotoxins as able -Continue gentle hydration at 75 cc an hour for another liter -Proceeding carefully with hydration due to poor EF at 25% -Repeat BMP in a.m. Leukocytosis -Left shift is present -Chest x-ray is unremarkable -UA is not consistent with infection -COVID testing was negative -Recent C. difficile on 06/14/2023 was unremarkable -Likely reactive due to the above and will repeat CBC in a.m. -Hold on empiric antibiotics at this time Toxic/metabolic encephalopathy -More alert today however still seems to be somewhat confused and response timesare delayed Right hip pain -Previous arthroplasty -Check ESR/CRP -Check plain films -Continue Tylenol -Add lidocaine patch Hyperbilirubinemia -Bilirubin is not typically elevated and 1.6 today -May be reactive from the above as LFTs are normal -Alk phos is slightly elevated at 123 -If having right upper quadrant pain will consider ultrasound -Patient likely not a surgical candidate if there is any issue and would likely need a PERC drain to decompress the gallbladder Troponin elevation -This appears to be chronic and is actually less than it has been previously -Patient with extremely poor ejection fraction -No chest pain present -No need for further work-up at this time History of nonischemic cardiomyopathy -History of biventricular ICD/pacer -Currently holding diuretics due to dehydration -We will reinitiate when medically appropriate CAD/HTN/persistent atrial fibrillation/WHO group 2 pulmonary hypertension -Continue apixaban 5 mg p.o. twice daily -Continue carvedilol 3.125 mg daily -Hold lisinopril -Monitor on telemetry -Continue to monitor blood pressure with dehydration -Diuretics on hold due to VALENCIA History of cirrhosis -Continued outpatient follow-up -Continue lactulose daily Parkinson's disease -Continue home carbidopa/levodopa GERD -Continue home PPI DM-2 -Hold home Trulicity -Hold home glargine until p.o. intake is more established -SSI -Accu-Cheks as ordered History of prostate cancer -Has completed radiation treatments Chronic low back pain -Continue home pain medication regimen once mental status is improved DVT prophylaxis -Continue apixaban CODE STATUS -20-minute discussion with the POA upon admission per admitting physician documentation and CODE STATUS remains full. Will place order Charges/Coding Visit Charges Inpatient E&M: 67759 Subs Hosp L2 06/22/23 1249 <Electronically signed by Quynh Araya DO> Cosigner Signature (if applicable): CC: ~ Signed [facility] Work Phone: 1(957) 667-595508-15-2023 History and physical note Author Maximo Addison [facility] June 21, 2023 5:38pm Note Date/Time June 21, 2023 5: 24pm [facility] Medical Records Department [address] [place] [address] H&P Exam - Hospitalist 06/21/23 1715 MR#: [id number] Acct: [id number] Name: STEPH BAUMANN Rep #:[id number] : 1950 73 From: Maximo sung MD PCP: Dr. Manuel Beebe MD Status:RE G ER Location: ED HPI - General General Date of Admission: 06/21/23 HPI Narrative STEPH BAUMANN, is a 73 M who presents from the snf with altered mental status as well as nausea and vomiting. Unfortunately he is not alert enough to provide any history so the history is obtained from the ER physician as well as the POA who is present at bedside. The POA is a friend of the patient's daughter who had and the patient has no other family. She statesthat he has been doing well at the snf but it has transitioned into a long-term stay and last night he did not eat all of his food and then this morning he had some nausea and started to vomit without eating any breakfast. He has significant heart disease and is on multiple diuretics which is likely contributed to his VALENCIA. He does have chronic kidney disease but his baseline creatinine is around 1.6 and is currently at 2.33. Chest x-ray and brain CT in the ER were unremarkable as was UA. [facility] Medical History Acute and chronic respiratory failure with hypoxia Acute heart failure with reduced ejection fraction and diastolic dysfunction Adult failure to thrive Ambulates with cane Anticoagulant long-term use Ascites Asthma Atherosclerosis of coronary artery of [place] heart without angina pectoris Atrial fibrillation and flutter Back pain Benign brain tumor Cholelithiasis Chronic combined systolic and diastolic CHF (congestive heart failure) Chronic kidney disease (CKD) Cirrhosis of liver Cirrhosis of liver with ascites CPAP (continuous positive airway pressure) dependence Debility Diabetes Diabetes mellitus, type II Essential (primary) hypertension Former smoker History of atrial fibrillation History of CVA (cerebrovascular accident) History of ulceration Hyperlipidemia Injury of back Insulin dependent diabetes mellitus Longstanding persistent atrial fibrillation Non-rheumatic tricuspid valve insufficiency Nonischemic cardiomyopathy NSTEMI (non-ST elevated myocardial infarction) (10/09/19) ALBINO (obstructive sleep apnea) Parkinson's disease 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 Right inguinal hernia Right ventricular systolic dysfunction Secondary pulmonary arterial hypertension Seizure disorder Sleep apnea Stasis edema of both lower extremities Stroke/cerebrovascular accident Thyroid disease Weakness Wears glasses Home Medications insulin glargine 100 unit/mL (3 mL) subcutaneous pen 37 unit subcut QHS [id number] [History Last Taken 04/12/23] bicalutamide 50 mg tablet (Casodex) 50 mg PO DAILY prostate 12/10/21 [History Last Taken 04/13/23] multivitamin 1 tab PO DAILY supplement 02/19/22 [History Last Taken 04/13/23] baclofen 20 mg tablet 20 mg PO TID BACK PAIN #90 tabs 12/23/22 [Rx Last Taken 04/13/23] apixaban 5 mg tablet (Eliquis) 5 mg PO BID blood thinner 04/13/23 [History Last Taken 04/13/23] carvedilol 3.125 mg tablet 3.125 mg PO BID HEART 04/13/23 [History Last Taken 04/12/23] dextrose 40 % oral gel (Glucose Gel) 15 g PO Q15M PRN Hypoglycemia 04/23/23 [History Last Taken Unknown] tramadol 50 mg tablet 50 mg PO Q12H PRN LOWER BACK PAIN 04/23/23 [History Last Taken Unknown] acetazolamide 250 mg tablet 250 mg PO BID 06/08/23 [History Last Taken Unknown] carbidopa 25 mg-levodopa 100 mg tablet 1 tab PO TID PARKINSONS 06/08/23 [History Last Taken Unknown] docusate sodium 100 mg capsule 100 mg PO BID CONSTIPATION 06/08/23 [History Last Taken Unknown] lisinopril 20 mg tablet 20 mg PO DAILY BLOOD PRESSURE 06/08/23 [History Last Taken Unknown] potassium chloride 20 mEq tablet,extended release 20 meq PO DAILY SUPPLEMENT 06/08/23 [History Last Taken Unknown] aluminum-magnesium hydroxide 225 mg-200 mg/5 mL oral suspension 30 ml PO Q4H PRN06/21/23 [History Last Taken Unknown] bisacodyl 10 mg rectal suppository 10 mg MA DAILY PRN constipation 06/21/23 [History Last Taken Unknown] bumetanide 2 mg tablet 2.5 mg PO DAILY FLUID 06/21/23 [History Last Taken Unknown] dulaglutide 1.5 mg/0.5 mL subcutaneous pen injector (Trulicity) 1.5 mg subcut FRDIABETES 06/21/23 [History Last Taken Unknown] lactulose 10 gram oral packet 10 g PO DAILY CONSTIPATION 06/21/23 [History Last Taken Unknown] lidocaine 5 % topical patch 1 patch topical DAILY RIGHT HIP PAIN 06/21/23 [History Last Taken Unknown] pantoprazole 40 mg tablet,delayed release 40 mg PO BID ACID REFLUX 06/21/23 [History Last Taken Unknown] sennosides 8.6 mg tablet (senna) 17.2 mg PO QHS CONSTIPATION 06/21/23 [History Last Taken Unknown] tramadol 50 mg tablet 50 mg PO Q6H PRN RIGHT HIP PAIN 06/21/23 [History Last Taken Unknown] Allergy/AdvReac Type Severity Reaction Status Date / Time acetaminophen AdvReac Other Verified 06/21/23 12:27 oxycodone AdvReac hallucinati Verified 06/21/23 12:27 ons Family History Daughter Heart disease valve replacement/chf Diabetes Mother Thyroid disorder Surgical History Biventricular ICD (implantable cardioverter-defibrillator) in place (10/12/19) H/O excision of tumor of brain meninges (2011) History of arthroplasty of right hip History of cardiac catheterization History of cardioversion (05/05/20) History of left heart catheterization (08/31/19) History of percutaneous coronary intervention (10/10/19) History of right and left heart catheterization History of right hip hemiarthroplasty History of tonsillectomy Social History household members: none Smoking Status: Former smoker how long ago did patient quit smokin years second hand exposure: No alcohol intake: never substance use type: does not use regla/yazidism: None seatbelt use: always ROS Review of Systems ROS Unobtainable: due to mental status Vital Signs Vital Signs Vital Signs: 06/21/23 12:22 06/21/23 12:32 06/21/23 12:26 Temperature 96.8 F L 97.6 F L Temperature Source Temporal Temporal Pulse Rate 72 70 Respiratory Rate 20 H 20 H Respiratory Pattern Normal Blood Pressure 113/73 107/65 Blood Pressure Mean 86 79 Pulse Ox 96 96 Oxygen Delivery Method Room Air Room Air 06/21/23 13:26 06/21/23 12:46 06/21/23 12:50 Temperature 97.8 F Temperature Source Temporal Pulse Rate 69 70 70 Respiratory Rate 21 H 12 13 Respiratory Pattern Blood Pressure 106/73 Blood Pressure Mean 84 Pulse Ox 97 97 92 Oxygen Delivery Method Room Air 06/21/23 13:00 06/21/23 13:10 06/21/23 13:20 Temperature Temperature Source Pulse Rate 72 70 73 Respiratory Rate 22 H 21 H 23 H Respiratory Pattern Blood Pressure 106/55 L Blood Pressure Mean 72 Pulse Ox 94 96 Oxygen Delivery Method 06/21/23 13:25 06/21/23 13:30 06/21/23 13:40 Temperature Temperature Source Pulse Rate 72 70 73 Respiratory Rate 26 H 11 L 29 H Respiratory Pattern Blood Pressure 106/73 Blood Pressure Mean 84 Pulse Ox 96 Oxygen Delivery Method 06/21/23 13:45 06/21/23 13:50 06/21/23 14:00 Temperature Temperature Source Pulse Rate 70 74 74 Respiratory Rate 18 18 18 Respiratory Pattern Blood Pressure 100/75 Blood Pressure Mean 81 Pulse Ox 98 99 Oxygen Delivery Method 06/21/23 14:10 06/21/23 15:00 Temperature Temperature Source Pulse Rate 70 70 Respiratory Rate 27 H 20 H Respiratory Pattern Blood Pressure 108/64 Blood Pressure Mean 78 Pulse Ox 98 96 Oxygen Delivery Method Room Air Weight Weight: 178 lb 2.136 oz Body Mass Index (BMI) 26.3 Physical Exam Narrative General: Sleepy, no apparent distress HEENT: Atraumatic, PERRLA, normocephalic Oral: Dry mucosa Neck: Supple, No JVD Lungs: Diminished, Normal air movement, No rhonchi, No wheeze, No rales Cardiovascular: Regular rate, Regular Rhythm, Normal S1, Normal S2, No murmurs Abdomen: Soft, Non Tender, Non-Distended, No Hepato-splenomegaly Extremities: No edema, Capillary Refill Less than 3 Seconds Skin: No rashes, No breakdown Musculoskeletal: No Tenderness to Palpation of Joints or Extremities Neurological: Cranial nerves II-XII grossly intact, Motor Exam 5/5 strength throughout, Sensory exam intact to light touch and pain Psych/Mental Status: Drowsy Results Lab / Micro Data 06/21/23 13:10 06/21/23 13:10 Labs: Laboratory Results - last 24 hr 06/21/23 13:10: WBC 9.2, RBC 4.65, Hgb 15.0, Hct 46.3, MCV 99.6 H, MCH 32.3 H, MCHC 32.4, RDW Std Deviation 50.8 H, RDW Coeff of Yonathan 14.4, Plt Count 204, MPV 11.5, Sodium 142, Potassium 4.2, Chloride 107, Carbon Dioxide 27.0, Anion Gap 8,BUN 35 H, Creatinine 2.33 H, Estim Creat Clear Calc 29.08, Est GFR (MDRD) Af Amer 36 L, Est GFR (MDRD) Non-Af 30 L, BUN/Creatinine Ratio 15.0, Glucose 116 H,Calcium 9.7, Ammonia 30.0, Troponin I High Sens 104 H, Lipase < 10 L 06/21/23 13:25: Urine Color Yellow, Urine Clarity Clear, Urine pH 6.0, Ur Specific Shanks 1.020, Urine Protein 30 H, Urine Glucose (UA) Normal, Urine Ketones 5 H, Urine Occult Blood Negative, Urine Nitrite Negative, Urine Bilirubin 1 H, Urine Urobilinogen 1 H, Ur Leukocyte Esterase 25 H, Urine RBC 0-5SEEN, Urine WBC 0-5 SEEN, Ur Squamous Epith Cells 0-5 SEEN, Urine Bacteria RARE,Urine Mucus 0 SEEN 06/21/23 13:57: B-Natriuretic Peptide 43.4 Micro: Microbiology 06/21/23 13:57 Nasal Secretion SARS-CoV-2 & FLU Antigen (Rapid) - Final Radiology Impression Brain CT 06/21/23 13:28 IMPRESSION: Chronic involutional changes of the brain. Stable chronic changes more prominent in the right cerebral hemisphere. Electronically Signed: Erik Sandoval MD at 14:41 EDT , Chest X-Ray 06/21/23 13:28 IMPRESSION: Cardiomegaly. Prominence of the central pulmonary arteries. The lungs are clear. Electronically Signed: Erik Sandoval MD at 14:39 EDT , Assessment & Plan Assessment/Plan (1) Acute alteration in mental status: (2) Nausea & vomiting: (3) Acute kidney injury: PLAN: Plan 1. VALENCIA secondary to dehydration and diuresis leading to metabolic encephalopathy ? It appears that he did not eat or drink very well yesterday or this morning and he had some large volume emesis ? He did receive some IV fluids in the ER will hold off on any more given his reduced EF as well as significant diastolic dysfunction and pulmonary hypertension ? We will also hold his nephrotoxic medications 2. A. fib status post AICD/HTN/HLD/CAD status post thrombectomy/nonischemic cardiomyopathy/pulmonary hypertension ? Blood pressure are stable, will hold any of his nephrotoxic blood pressure medications ? Continue with statin ? Continue with Eliquis 3. IDDM 2 ? We will hold his home insulin given his lack of p.o. intake currently ? Accu-Cheks at bedtime, continue with the medium dose sliding scale ? We will make adjustments as necessary 4. GERD ? Stable ? Continue with PPI 5. Parkinson's ? We will continue with his Sinemet which was restarted by his neurologist 6. Prostate cancer ? He has completed radiation treatments DVT: Wil[place] I had a 20-minute discussion with the POA on advance care planning options including hospice. She reiterated that he would like to be full code. Charges/Coding Visit Charges Inpatient E&M: 18857 Init Hosp L2 Procedures Hospitalists Procedures: 95415 Advncd Care Plan 30 Min 06/21/23 1738 <Electronically signed by Maximo Addison MD> Cosigner Signature (if applicable): CC: Dr. Manuel Beebe MD; Dr. Maximo Addison MD~ Signed [facility] Work Phone: 1(556) 508-821708-15-2023 Discharge summary Author Juan Conte [facility] [facility] June 21, 2023 4:29pm Note Date/Time June 21, 2023 12 :54pm [facility] Medical Records Department [address] [place] [address] Emergency Department Summary 06/21/23 MR#: [id number] Acct: [id number] Name: STEPH BAUMANN Rep #:[id number] : 1950 73 From: Juan Huang PCP: Dr. Manuel Beebe MD Status:RE G ER Location: ED HPI History of Present Illness Chief Complaint: Alt LOC PFSH PFS Medical History Acute and chronic respiratory failure with hypoxia Acute heart failure with reduced ejection fraction and diastolic dysfunction Adult failure to thrive Ambulates with cane Anticoagulant long-term use Ascites Asthma Atherosclerosis of coronary artery of [place] heart without angina pectoris Atrial fibrillation and flutter Back pain Benign brain tumor Cholelithiasis Chronic combined systolic and diastolic CHF (congestive heart failure) Chronic kidney disease (CKD) Cirrhosis of liver Cirrhosis of liver with ascites CPAP (continuous positive airway pressure) dependence Debility Diabetes Diabetes mellitus, type II Essential (primary) hypertension Former smoker History of atrial fibrillation History of CVA (cerebrovascular accident) History of ulceration Hyperlipidemia Injury of back Insulin dependent diabetes mellitus Longstanding persistent atrial fibrillation Non-rheumatic tricuspid valve insufficiency Nonischemic cardiomyopathy NSTEMI (non-ST elevated myocardial infarction) (10/09/19) ALBINO (obstructive sleep apnea) Parkinson's disease 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 Right inguinal hernia Right ventricular systolic dysfunction Secondary pulmonary arterial hypertension Seizure disorder Sleep apnea Stasis edema of both lower extremities Stroke/cerebrovascular accident Thyroid disease Weakness Wears glasses Home Medications insulin glargine 100 unit/mL (3 mL) subcutaneous pen 27 unit SQ QHS diabetes 10/30/18 [History Last Taken 04/12/23] bicalutamide 50 mg tablet (Casodex) 50 mg PO DAILY prostate 12/10/21 [History Last Taken 04/13/23] multivitamin 1 tab PO DAILY supplement 02/19/22 [History Last Taken 04/13/23] omeprazole 20 mg capsule,delayed release 20 mg PO BID reflux 09/09/22 [History Last Taken 04/13/23] baclofen 20 mg tablet 20 mg PO TID #90 tabs 12/23/22 [Rx Last Taken 04/13/23] apixaban 5 mg tablet (Eliquis) 5 mg PO BID blood thinner 04/13/23 [History Last Taken 04/13/23] carvedilol 3.125 mg tablet 3.125 mg PO BID BP 04/13/23 [History Last Taken 04/12/23] dextrose 40 % oral gel (Glucose Gel) 15 g PO Q15M PRN Hypoglycemia 04/23/23 [History Last Taken Unknown] tramadol 50 mg tablet 50 mg PO Q12H PRN PRN Pain 04/23/23 [History Last Taken Unknown] acetazolamide 250 mg tablet 250 mg PO BID 06/08/23 [History Last Taken Unknown] carbidopa 25 mg-levodopa 100 mg tablet 1 tab PO TID 06/08/23 [History Last Taken Unknown] docusate sodium 100 mg capsule 100 mg PO BID 06/08/23 [History Last Taken Unknown] lisinopril 20 mg tablet 20 mg PO DAILY 06/08/23 [History Last Taken Unknown] potassium chloride 20 mEq tablet,extended release 20 meq PO DAILY 06/08/23 [History Last Taken Unknown] Allergy/AdvReac Type Severity Reaction Status Date / Time acetaminophen AdvReac Other Verified 06/21/23 12:27 oxycodone AdvReac hallucinati Verified 06/21/23 12:27 ons Family History Daughter Heart disease valve replacement/chf Diabetes Mother Thyroid disorder Surgical History Biventricular ICD (implantable cardioverter-defibrillator) in place (10/12/19) H/O excision of tumor of brain meninges (2011) History of arthroplasty of right hip History of cardiac catheterization History of cardioversion (05/05/20) History of left heart catheterization (08/31/19) History of percutaneous coronary intervention (10/10/19) History of right and left heart catheterization History of right hip hemiarthroplasty History of tonsillectomy Social History household members: none Smoking Status: Former smoker how long ago did patient quit smokin years second hand exposure: No alcohol intake: never substance use type: does not use regla/yazidism: None seatbelt use: always EXAM Physical Exam Const Vital Signs: 06/21/23 12:22 06/21/23 12:32 06/21/23 12:26 Temperature 96.8 F L 97.6 F L Temperature Source Temporal Temporal Pulse Rate 72 70 Respiratory Rate 20 H 20 H Respiratory Pattern Normal Blood Pressure 113/73 107/65 Blood Pressure Mean 86 79 Pulse Ox 96 96 Oxygen Delivery Method Room Air Room Air 06/21/23 13:26 06/21/23 12:46 06/21/23 12:50 Temperature 97.8 F Temperature Source Temporal Pulse Rate 69 70 70 Respiratory Rate 21 H 12 13 Respiratory Pattern Blood Pressure 106/73 Blood Pressure Mean 84 Pulse Ox 97 97 92 Oxygen Delivery Method Room Air 06/21/23 13:00 06/21/23 13:10 06/21/23 13:20 Temperature Temperature Source Pulse Rate 72 70 73 Respiratory Rate 22 H 21 H 23 H Respiratory Pattern Blood Pressure 106/55 L Blood Pressure Mean 72 Pulse Ox 94 96 Oxygen Delivery Method 06/21/23 13:25 06/21/23 13:30 06/21/23 13:40 Temperature Temperature Source Pulse Rate 72 70 73 Respiratory Rate 26 H 11 L 29 H Respiratory Pattern Blood Pressure 106/73 Blood Pressure Mean 84 Pulse Ox 96 Oxygen Delivery Method 06/21/23 13:45 06/21/23 13:50 06/21/23 14:00 Temperature Temperature Source Pulse Rate 70 74 74 Respiratory Rate 18 18 18 Respiratory Pattern Blood Pressure 100/75 Blood Pressure Mean 81 Pulse Ox 98 99 Oxygen Delivery Method 06/21/23 14:10 06/21/23 15:00 Temperature Temperature Source Pulse Rate 70 70 Respiratory Rate 27 H 20 H Respiratory Pattern Blood Pressure 108/64 Blood Pressure Mean 78 Pulse Ox 98 96 Oxygen Delivery Method Room Air [facility] [place] Narrative Medical decision making narrative: HISTORY OF PRESENT ILLNESS: 73-year-old male here with concern for altered mental status. The patient does not provide reliable history. Per snf report patient has been last Pernursing report patient episode of nausea vomiting earlier today. REVIEW OF SYSTEMS: Pertinent positives: Altered mental status, nausea and vomiting, decreased urineoutput Pertinent negatives: Patient does not provide a reliable history PHYSICAL EXAM: Nursing triage notes reviewed, Vital signs reviewed Constitutional: please see mdm HENT: MMM Eyes: Pupils equal round and reactive to light, Extraocular muscles intact Neck: No stridor, no JVD, full neck ROM Lungs: Clear to auscultation, No wheezing or rales. No increased work of breathing, no conversational dyspnea, no accessory muscle use, no nasal flaring. No respiratory distress noted Heart: Regular rate and rhythm, No murmurs, No rubs and No gallops, 2+ distal pulses (radial, femoral, posterior tibial) in all extremities Abdomen: Soft, there is no tenderness, rigidity, rebound or guarding, no obviousperitoneal signs, no palpable pulsatile abdominal masses, no auscultated abdominal bruit : No CVAT Extremities: No edema Neuro: Alert, surprisingly oriented to person place and time however makes nonsensical comments when questioned further, cranial nerves II through XII intact, 5/5 strength in all extremities. Intact sensation to light touch in all extremities, 2+ reflexes bilateral patella tendons. . No ataxia. Gait not assessed secondary to acuity of condition Skin: No rash or lesions noted MEDICAL DECISION MAKING: Chief Complaint: Altered mental status External records reviewed: Echocardiogram from April 2023 shows ejection fractionof 25% Factors affecting care: Liver cirrhosis, prostate cancer, type 2 diabetes, CKD, atrial fibrillation (on Eliquis), pulmonary artery hypertension, hypertension, hyperlipidemia, CVA CHF, Social determinants of health: Elderly History obtained from others: n snf Consults: Internal medicine ALL IMAGES (IF OBTAINED) HAVE BEEN PERSONALLY REVIEWED AND INTERPRETED BY MYSELF. [facility] Narrative: Patient was hemodynamically stable, afebrile, nontoxic-appearing. Neuro exam without obvious focality. Patient was alert and oriented to person place and time ever did not provide reliable history. I considered the following differential diagnosis: ICH, electrolyte abnormality,hepatic encephalopathy, infectious cystopathy, dehydration CT scan was obtained of the head rule out ICH or intracranial normality causing change in mental status. CMP was obtained rule out electrolyte normalities or hepatic dysfunction. LFTs and ammonia were unremarkable. No obvious source of infection no white count no fever. Chest x-ray showed no evidence of pneumonia. Patient was noted to have VALENCIA on CKD. This is likely leading to type II demandischemia with elevated troponin which is similar to baseline. EKG showed no evidence of ischemic changes or arrhythmia. T this is likely caused by nausea and vomiting. Given the patient's evidence of dehydration will admit the patient for gentle IV fluid resuscitation. The patient and/or family, caregivers express understanding. The patient and/orfamily, caregivers agrees with the plan. Shared decision making: I will have a discussion with the patient and or visitors regarding risk/benefits of further testing or admission. They will be made aware of of the risk/benefits inherent in this decision they will be given the opportunity to voice understanding. Total critical care time today provided was at least 0 minutes. This excludes separately billable procedures. Critical care time (if documented) is secondary to the patient having high probability of clinically significant/life threatening deterioration in the patient's condition which required my urgent intervention. Lab Data Attestation: I reviewed the patient's lab results. Lab results narrative: CBC without leukocytosis, no anemia, no thrombocytopenia Troponin initially elevated consistent with prior studies likely secondary to CKD, likely demand ischemia given EKG has no evidence of acute STEMI or other ischemic changes Lipase is wnl indicating no pancreatic inflammation. Urinalysis shows no evidence of urinary inflammation suggestive of UTI Labs: Laboratory Results - last 24 hr 06/21/23 06/21/23 06/21/23 13:10 13:25 13:57 WBC 9.2 RBC 4.65 Hgb 15.0 Hct 46.3 MCV 99.6 H MCH 32.3 H MCHC 32.4 RDW Std Deviation 50.8 H RDW Coeff of Yonathan 14.4 Plt Count 204 MPV 11.5 Sodium 142 Potassium 4.2 Chloride 107 Carbon Dioxide 27.0 Anion Gap 8 BUN 35 H Creatinine 2.33 H Estim Creat Clear Calc 29.08 Est GFR (MDRD) Af Amer 36 L Est GFR (MDRD) Non-Af 30 L BUN/Creatinine Ratio 15.0 Glucose 116 H Calcium 9.7 Ammonia 30.0 Troponin I High Sens 104 H B-Natriuretic Peptide 43.4 Lipase < 10 L Urine Color Yellow Urine Clarity Clear Urine pH 6.0 Ur Specific Shanks 1.020 Urine Protein 30 H Urine Glucose (UA) Normal Urine Ketones 5 H Urine Occult Blood Negative Urine Nitrite Negative Urine Bilirubin 1 H Urine Urobilinogen 1 H Ur Leukocyte Esterase 25 H Urine RBC 0-5 SEEN Urine WBC 0-5 SEEN Ur Squamous Epith Cells 0-5 SEEN Urine Bacteria RARE Urine Mucus 0 SEEN Radiography Diagnostic Testing: Clinical Impression(s) from Imaging Studies Brain CT 06/21/23 13:28 IMPRESSION: Chronic involutional changes of the brain. Stable chronic changes more prominent in the right cerebral hemisphere. Electronically Signed: Erik Sandoval MD at 14:41 EDT , Chest X-Ray 06/21/23 13:28 IMPRESSION: Cardiomegaly. Prominence of the central pulmonary arteries. The lungs are clear. Electronically Signed: Erik Sandoval MD at 14:39 EDT , Chest x-ray read by myself shows no evidence of obvious pneumonia Discharge Plan Dx/Rx/DC Orders Clinical Impression: Acute dehydration, Elevated troponin, Nausea & vomiting, Acute alteration in mental status Disposition Disposition: Acute Care Hospital [facility] What to do if you have Problems For any increased pain, shortness of breath, bleeding, nausea or vomiting, chestpain, or any unexpected problems, contact your Primary Care Provider. Call [facility] ([phone]) or report to the closest Emergency Room. Call 911 if necessary. 06/21/23 0365 <Electronically signed by Juan Conte DO> Cosigner Signature (if applicable): CC: Dr. Manuel Beebe MD ~ Signed [facility] Work Phone: [phone]) 345-980208-15-2023 Discharge summary Author Juan Conte [facility] June 21, 2023 4:29pm Note Date/Time June 21, 2023 12 :54pm [facility] Medical Records Department [address] [place] [address] Emergency Department Summary 06/21/23 MR#: [id number] Acct: [id number] Name: STEPH BAUMANN Rep #:[id number] : 1950 73 From: Juan Huang PCP: Dr. Manuel Beebe MD Status:RE G ER Location: ED HPI History of Present Illness Chief Complaint: Alt LOC PFSH PFS Medical History Acute and chronic respiratory failure with hypoxia Acute heart failure with reduced ejection fraction and diastolic dysfunction Adult failure to thrive Ambulates with cane Anticoagulant long-term use Ascites Asthma Atherosclerosis of coronary artery of [place] heart without angina pectoris Atrial fibrillation and flutter Back pain Benign brain tumor Cholelithiasis Chronic combined systolic and diastolic CHF (congestive heart failure) Chronic kidney disease (CKD) Cirrhosis of liver Cirrhosis of liver with ascites CPAP (continuous positive airway pressure) dependence Debility Diabetes Diabetes mellitus, type II Essential (primary) hypertension Former smoker History of atrial fibrillation History of CVA (cerebrovascular accident) History of ulceration Hyperlipidemia Injury of back Insulin dependent diabetes mellitus Longstanding persistent atrial fibrillation Non-rheumatic tricuspid valve insufficiency Nonischemic cardiomyopathy NSTEMI (non-ST elevated myocardial infarction) (10/09/19) ALBINO (obstructive sleep apnea) Parkinson's disease 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 Right inguinal hernia Right ventricular systolic dysfunction Secondary pulmonary arterial hypertension Seizure disorder Sleep apnea Stasis edema of both lower extremities Stroke/cerebrovascular accident Thyroid disease Weakness Wears glasses Home Medications insulin glargine 100 unit/mL (3 mL) subcutaneous pen 27 unit SQ QHS diabetes 10/30/18 [History Last Taken 04/12/23] bicalutamide 50 mg tablet (Casodex) 50 mg PO DAILY prostate 12/10/21 [History Last Taken 04/13/23] multivitamin 1 tab PO DAILY supplement 02/19/22 [History Last Taken 04/13/23] omeprazole 20 mg capsule,delayed release 20 mg PO BID reflux 09/09/22 [History Last Taken 04/13/23] baclofen 20 mg tablet 20 mg PO TID #90 tabs 12/23/22 [Rx Last Taken 04/13/23] apixaban 5 mg tablet (Eliquis) 5 mg PO BID blood thinner 04/13/23 [History Last Taken 04/13/23] carvedilol 3.125 mg tablet 3.125 mg PO BID BP 04/13/23 [History Last Taken 04/12/23] dextrose 40 % oral gel (Glucose Gel) 15 g PO Q15M PRN Hypoglycemia 04/23/23 [History Last Taken Unknown] tramadol 50 mg tablet 50 mg PO Q12H PRN PRN Pain 04/23/23 [History Last Taken Unknown] acetazolamide 250 mg tablet 250 mg PO BID 06/08/23 [History Last Taken Unknown] carbidopa 25 mg-levodopa 100 mg tablet 1 tab PO TID 06/08/23 [History Last Taken Unknown] docusate sodium 100 mg capsule 100 mg PO BID 06/08/23 [History Last Taken Unknown] lisinopril 20 mg tablet 20 mg PO DAILY 06/08/23 [History Last Taken Unknown] potassium chloride 20 mEq tablet,extended release 20 meq PO DAILY 06/08/23 [History Last Taken Unknown] Allergy/AdvReac Type Severity Reaction Status Date / Time acetaminophen AdvReac Other Verified 06/21/23 12:27 oxycodone AdvReac hallucinati Verified 06/21/23 12:27 ons Family History Daughter Heart disease valve replacement/chf Diabetes Mother Thyroid disorder Surgical History Biventricular ICD (implantable cardioverter-defibrillator) in place (10/12/19) H/O excision of tumor of brain meninges (2011) History of arthroplasty of right hip History of cardiac catheterization History of cardioversion (05/05/20) History of left heart catheterization (08/31/19) History of percutaneous coronary intervention (10/10/19) History of right and left heart catheterization History of right hip hemiarthroplasty History of tonsillectomy Social History household members: none Smoking Status: Former smoker how long ago did patient quit smokin years second hand exposure: No alcohol intake: never substance use type: does not use regla/yazidism: None seatbelt use: always EXAM Physical Exam Const Vital Signs: 06/21/23 12:22 06/21/23 12:32 06/21/23 12:26 Temperature 96.8 F L 97.6 F L Temperature Source Temporal Temporal Pulse Rate 72 70 Respiratory Rate 20 H 20 H Respiratory Pattern Normal Blood Pressure 113/73 107/65 Blood Pressure Mean 86 79 Pulse Ox 96 96 Oxygen Delivery Method Room Air Room Air 06/21/23 13:26 06/21/23 12:46 06/21/23 12:50 Temperature 97.8 F Temperature Source Temporal Pulse Rate 69 70 70 Respiratory Rate 21 H 12 13 Respiratory Pattern Blood Pressure 106/73 Blood Pressure Mean 84 Pulse Ox 97 97 92 Oxygen Delivery Method Room Air 06/21/23 13:00 06/21/23 13:10 06/21/23 13:20 Temperature Temperature Source Pulse Rate 72 70 73 Respiratory Rate 22 H 21 H 23 H Respiratory Pattern Blood Pressure 106/55 L Blood Pressure Mean 72 Pulse Ox 94 96 Oxygen Delivery Method 06/21/23 13:25 06/21/23 13:30 06/21/23 13:40 Temperature Temperature Source Pulse Rate 72 70 73 Respiratory Rate 26 H 11 L 29 H Respiratory Pattern Blood Pressure 106/73 Blood Pressure Mean 84 Pulse Ox 96 Oxygen Delivery Method 06/21/23 13:45 06/21/23 13:50 06/21/23 14:00 Temperature Temperature Source Pulse Rate 70 74 74 Respiratory Rate 18 18 18 Respiratory Pattern Blood Pressure 100/75 Blood Pressure Mean 81 Pulse Ox 98 99 Oxygen Delivery Method 06/21/23 14:10 06/21/23 15:00 Temperature Temperature Source Pulse Rate 70 70 Respiratory Rate 27 H 20 H Respiratory Pattern Blood Pressure 108/64 Blood Pressure Mean 78 Pulse Ox 98 96 Oxygen Delivery Method Room Air [facility] MDM Narrative Medical decision making narrative: HISTORY OF PRESENT ILLNESS: 73-year-old male here with concern for altered mental status. The patient does not provide reliable history. Per snf report patient has been last Pernursing report patient episode of nausea vomiting earlier today. REVIEW OF SYSTEMS: Pertinent positives: Altered mental status, nausea and vomiting, decreased urineoutput Pertinent negatives: Patient does not provide a reliable history PHYSICAL EXAM: Nursing triage notes reviewed, Vital signs reviewed Constitutional: please see mdm HENT: MMM Eyes: Pupils equal round and reactive to light, Extraocular muscles intact Neck: No stridor, no JVD, full neck ROM Lungs: Clear to auscultation, No wheezing or rales. No increased work of breathing, no conversational dyspnea, no accessory muscle use, no nasal flaring. No respiratory distress noted Heart: Regular rate and rhythm, No murmurs, No rubs and No gallops, 2+ distal pulses (radial, femoral, posterior tibial) in all extremities Abdomen: Soft, there is no tenderness, rigidity, rebound or guarding, no obviousperitoneal signs, no palpable pulsatile abdominal masses, no auscultated abdominal bruit : No CVAT Extremities: No edema Neuro: Alert, surprisingly oriented to person place and time however makes nonsensical comments when questioned further, cranial nerves II through XII intact, 5/5 strength in all extremities. Intact sensation to light touch in all extremities, 2+ reflexes bilateral patella tendons. . No ataxia. Gait not assessed secondary to acuity of condition Skin: No rash or lesions noted MEDICAL DECISION MAKING: Chief Complaint: Altered mental status External records reviewed: Echocardiogram from April 2023 shows ejection fractionof 25% Factors affecting care: Liver cirrhosis, prostate cancer, type 2 diabetes, CKD, atrial fibrillation (on Eliquis), pulmonary artery hypertension, hypertension, hyperlipidemia, CVA CHF, Social determinants of health: Elderly History obtained from others: n snf Consults: Internal medicine ALL IMAGES (IF OBTAINED) HAVE BEEN PERSONALLY REVIEWED AND INTERPRETED BY MYSELF. [facility] Narrative: Patient was hemodynamically stable, afebrile, nontoxic-appearing. Neuro exam without obvious focality. Patient was alert and oriented to person place and time ever did not provide reliable history. I considered the following differential diagnosis: ICH, electrolyte abnormality,hepatic encephalopathy, infectious cystopathy, dehydration CT scan was obtained of the head rule out ICH or intracranial normality causing change in mental status. CMP was obtained rule out electrolyte normalities or hepatic dysfunction. LFTs and ammonia were unremarkable. No obvious source of infection no white count no fever. Chest x-ray showed no evidence of pneumonia. Patient was noted to have VALENCIA on CKD. This is likely leading to type II demandischemia with elevated troponin which is similar to baseline. EKG showed no evidence of ischemic changes or arrhythmia. T this is likely caused by nausea and vomiting. Given the patient's evidence of dehydration will admit the patient for gentle IV fluid resuscitation. The patient and/or family, caregivers express understanding. The patient and/orfamily, caregivers agrees with the plan. Shared decision making: I will have a discussion with the patient and or visitors regarding risk/benefits of further testing or admission. They will be made aware of of the risk/benefits inherent in this decision they will be given the opportunity to voice understanding. Total critical care time today provided was at least 0 minutes. This excludes separately billable procedures. Critical care time (if documented) is secondary to the patient having high probability of clinically significant/life threatening deterioration in the patient's condition which required my urgent intervention. Lab Data Attestation: I reviewed the patient's lab results. Lab results narrative: CBC without leukocytosis, no anemia, no thrombocytopenia Troponin initially elevated consistent with prior studies likely secondary to CKD, likely demand ischemia given EKG has no evidence of acute STEMI or other ischemic changes Lipase is wnl indicating no pancreatic inflammation. Urinalysis shows no evidence of urinary inflammation suggestive of UTI Labs: Laboratory Results - last 24 hr 06/21/23 06/21/23 06/21/23 13:10 13:25 13:57 WBC 9.2 RBC 4.65 Hgb 15.0 Hct 46.3 MCV 99.6 H MCH 32.3 H MCHC 32.4 RDW Std Deviation 50.8 H RDW Coeff of Yonathan 14.4 Plt Count 204 MPV 11.5 Sodium 142 Potassium 4.2 Chloride 107 Carbon Dioxide 27.0 Anion Gap 8 BUN 35 H Creatinine 2.33 H Estim Creat Clear Calc 29.08 Est GFR (MDRD) Af Amer 36 L Est GFR (MDRD) Non-Af 30 L BUN/Creatinine Ratio 15.0 Glucose 116 H Calcium 9.7 Ammonia 30.0 Troponin I High Sens 104 H B-Natriuretic Peptide 43.4 Lipase < 10 L Urine Color Yellow Urine Clarity Clear Urine pH 6.0 Ur Specific Shanks 1.020 Urine Protein 30 H Urine Glucose (UA) Normal Urine Ketones 5 H Urine Occult Blood Negative Urine Nitrite Negative Urine Bilirubin 1 H Urine Urobilinogen 1 H Ur Leukocyte Esterase 25 H Urine RBC 0-5 SEEN Urine WBC 0-5 SEEN Ur Squamous Epith Cells 0-5 SEEN Urine Bacteria RARE Urine Mucus 0 SEEN Radiography Diagnostic Testing: Clinical Impression(s) from Imaging Studies Brain CT 06/21/23 13:28 IMPRESSION: Chronic involutional changes of the brain. Stable chronic changes more prominent in the right cerebral hemisphere. Electronically Signed: Erik Sandoval MD at 14:41 EDT , Chest X-Ray 06/21/23 13:28 IMPRESSION: Cardiomegaly. Prominence of the central pulmonary arteries. The lungs are clear. Electronically Signed: Erik Sandoval MD at 14:39 EDT , Chest x-ray read by myself shows no evidence of obvious pneumonia Discharge Plan Dx/Rx/DC Orders Clinical Impression: Acute dehydration, Elevated troponin, Nausea & vomiting, Acute alteration in mental status Disposition Disposition: Acute Care Hospital [facility] What to do if you have Problems For any increased pain, shortness of breath, bleeding, nausea or vomiting, chestpain, or any unexpected problems, contact your Primary Care Provider. Call [facility] ([phone]) or report to the closest Emergency Room. Call 911 if necessary. 06/21/23 1629 <Electronically signed by Juan Conte DO> Cosigner Signature (if applicable): CC: Dr. Manuel Beebe MD ~ Signed [facility] Work Phone: 1(408) 698-935706-19-[address] Addison [facility] April 25, 2023 12:21pm Note Date/Time April 25, 2023 12:0 9pm [facility] Medical Records Department [address] [place] [address] Transfer to [facility] MR#: [id number] Acct: [id number] Name: STEPH BAUMANN Rep #:[id number] : 1950 72 From: Maximo sung MD PCP: Dr. Manuel Beebe MD Status:AD M IN Certification of patient admission REQUIRED AT TIME OF ADMISSION. I CERTIFY THAT POST-HOSPITAL ECF SERVICES ARE REQUIRED TO BE GIVEN ON AN IN-PATIENT BASIS BECAUSE OF THE ABOVE NAMED PATIENT'S NEED FOR FPC CARE ON A CONTINUING BASIS FOR THE CONDITION(S) FOR WHICH HE/SHE WAS RECEIVING IN-PATIENT HOSPITAL SERVICES PRIOR TO HIS/HER TRANSFER TO THE ECF. 04/25/23 1221<Electronically signed by Maximo Addison MD> Diet Diet Order/Speech Therapy: 04/24/23 13:00 Diet: Cardiac: Calorie-Controlled Food consistency:: Regular Liquid Consistency:: Regular/Thin Dietary Modifications:: Consistent Carbohydrate Sodium Restricted How many daily calories?: 2000 calorie Routine Orders/Code Status Routine Lab Work: CBC and BMP Code Status: Full Code Therapies Physical Therapy: Eval and Treat Occupational Therapy: Eval and Treat Problem/Diagnosis (1) Generalized weakness: Status: Acute Code(s): R53.1 - Weakness (2) Adult failure to thrive: Status: Acute Code(s): R62.7 - Adult failure to thrive (3) VALENCIA (acute kidney injury): Status: Acute Code(s): N17.9 - Acute kidney failure, unspecified Allergies/Procedures Done in Hospital Allergies acetaminophen Adverse Reaction (Verified 04/23/23 10:15) Other oxycodone Adverse Reaction (Verified 04/23/23 10:15) hallucinations Procedures: 2-D Echocardiogram Type of Care/Length of Stay Estimated LOS: Convalescent Care Less Than 30 days Type of Care Needed: Skilled Rehab Potential: Good Prognosis: Good Additional Orders/Day of Discharge Day of Discharge: 04/25/23 Dietary and Speech Recommendations Dietitian Recommendations/Changes: Will adjust diet to 2000 calorie/consistent carbohydrate; cardiac/sodium-restricted. ONS as needed if PO fails at meals; will defer for now. Discharge Plan Admission Admit Date/Time: 04/23/23 13:41 Attending Provider: Maximo Addison Primary Care Provider: Manuel Beebe Consulting Providers: Fior Turner Discharge Orders/Prescriptions Prescriptions: Continued bicalutamide [Casodex] 50 mg tablet 50 mg PO DAILY omeprazole 20 mg capsule,delayed release(DR/EC) 20 mg PO BID baclofen 20 mg tablet 20 mg PO TID Qty: 90 5RF insulin glargine 100 UNIT/ML insulin pen 27 unit SQ QHS multivitamin Tablet 1 tab PO DAILY carvedilol 3.125 mg tablet 3.125 mg PO BID Eliquis 5 mg tablet 5 mg PO BID Rx Instructions: TAKE ONE (1) TABLET BY MOUTH TWICE DAILY tramadol 50 mg tablet 50 mg PO Q12H PRN PRN (Reason: Pain) Label Comments: TAKE 1 TABLET BY MOUTH EVERY 6 HOURS NEEDED FOR PAIN FOR 7 DAYS dextrose [Glucose Gel] 40 % Gel 15 g PO Q15M PRN (Reason: Hypoglycemia) Rx Instructions: until symptoms of low blood sugar are controlled Held lisinopril 40 mg tablet 40 mg PO DAILY Hold Instructions: Resume on 04/26/23. bumetanide 1 mg tablet 1 tab PO TID Hold Instructions: Resume on 04/27/23. Label Comments: TAKE 3 TABLETS BY MOUTH ONCE DAILY Referrals / Follow Up: Manuel Beebe MD [Primary Care Provider] - Disposition Disposition (needs filled in before D/C Order can be placed): Custodial Facility 04/25/23 1221 <Electronically signed by Maximo Addison MD> Cosigner Signature (if applicable): CC: Dr. Manuel Beebe MD; Dr. Fior Turner MD ~ [facility] Work Phone: [phone]) 770-435306-18-[address] Turner [facility] April 24, 2023 2:03pm Note Date/Time April 24, 2023 10:2 8am [facility] Medical Records Department [address] [place] [id number] Progress Note 04/24/23 1025 MR#: [id number] Acct: [id number] Name: STEPH BAUMANN Rep #:[id number] : 1950 72 From: Fior Turner MD PCP: Dr. Manuel Beebe MD Status:AD M IN Location: [place] [address]- Subjective Subjective Patient seen and examined. He says he feels a bit weak today. He however looksmuch better than he did when he came in. He still complains of pain in his lefthip. He denies any fever or chills, any other symptoms. Review of systems otherwise negative. Creatinine has trended down to 1.46 today. Objective Data Objective Data Vital Signs: Vital Signs Temp Pulse Resp BP Pulse Ox O2 Del Method O2 Flow Rate 98.5 F 70 16 106/68 99 Nasal Cannula 2 04/24/23 09:00 04/24/23 09:00 04/24/23 09:00 04/24/23 09:00 04/24/23 09:00 04/24/23 09:00 04/24/23 09:00 Oxygen Flow Rate (L/min) 2 Oxygen Delivery Method Nasal Cannula Weight: 192 lb Body Mass Index (BMI) 28.3 Intake & Output: Intake and Output for Last 24 Hours 04/22/23 04/23/23 04/24/23 23:59 23:59 23:59 Intake Total 1000 / 1000 2031.25 / 2030.25 Output Total 450 / 450 200 / 200 Balance 550 / 550 1831.25 / 183.25 Lab / Micro Data Result Diagrams: 04/24/23 05:49 04/24/23 05:49 Labs: Laboratory Results - last 24 hr 04/23/23 10:44: WBC 8.8, RBC 4.25 L, Hgb 13.9, Hct 41.4, MCV 97.4 H, MCH 32.7 H,MCHC 33.6, RDW Std Deviation 49.1 H, RDW Coeff of Yonathan 13.7, Plt Count 183, MPV 11.3, Immature Gran % (Auto) 0.500, Neut % (Auto) 84.7 H, Lymph % (Auto) 7.2 L, [place] % (Auto) 6.6, Eos % (Auto) 0.7, Baso % (Auto) 0.3, Absolute Neuts (auto) 7.4, Absolute Lymphs (auto) 0.63 L, Nucleated RBC % 0 04/23/23 10:44: PT 20.3 H, INR 1.7, APTT 34.0 04/23/23 10:44: Sodium 143, Potassium 4.1, Chloride 104, Carbon Dioxide 31.0, Anion Gap 8, BUN 57 H, Creatinine 2.04 H, Estim Creat Clear Calc 33.69, Est GFR (MDRD) Af Amer 42 L, Est GFR (MDRD) Non-Af 34 L, BUN/Creatinine Ratio 27.9 H, Glucose 146 H, Calcium 9.9, Total Bilirubin 0.90, AST 23, ALT 22, Alkaline Phosphatase 130 H, Troponin I High Sens 126 H*, Total Protein 8.3 H, Albumin 3.7, Globulin 4.6 H, Albumin/Globulin Ratio 0.8 L, Lipase 11 L 04/23/23 10:44: Ammonia 13.0 04/23/23 11:06: Urine Color Yellow, Urine Clarity Clear, Urine pH 5.0, Ur Specific Shanks 1.020, Urine Protein 15 H, Urine Glucose (UA) Normal, Urine Ketones Negative, Urine Occult Blood Negative, Urine Nitrite Negative, Urine Bilirubin Negative, Urine Urobilinogen Normal, Ur Leukocyte Esterase Negative, Urine RBC 0 SEEN, Urine WBC 0 SEEN, Ur Squamous Epith Cells 0-5 SEEN, Urine Bacteria 0 SEEN, Urine Mucus 0 SEEN 04/23/23 13:00: Troponin I High Sens 124 H* 04/23/23 20:47: POC Glucose 200 H 04/24/23 05:49: WBC 7.1, RBC 3.73 L, Hgb 12.2 L, Hct 37.7 L, MCV 101.1 H, MCH 32.7 H, MCHC 32.4, RDW Std Deviation 49.9 H, RDW Coeff of Yonathan 13.4, Plt Count 140 L, MPV 10.6, Immature Gran % (Auto) 0.600, Neut % (Auto) 82.0 H, Lymph % (Auto) 6.5 L, [place] % (Auto) 7.5, Eos % (Auto) 2.8, Baso % (Auto) 0.6, Absolute Neuts (auto) 5.8, Absolute Lymphs (auto) 0.46 L, Nucleated RBC % 0, DifferentialComment SCANNED 04/24/23 05:49: Sodium 145, Potassium 4.0, Chloride 112 H, Carbon Dioxide 29.0, Anion Gap 4 L, BUN 46 H, Creatinine 1.46 H, Estim Creat Clear Calc 47.08, Est GFR (MDRD) Af Amer 61, Est GFR (MDRD) Non-Af 51 L, BUN/Creatinine Ratio 31.5 H, Glucose 120 H, Calcium 9.3 Micro: Microbiology 04/23/23 10:44 Nasal Secretion SARS-CoV-2 & FLU Antigen (Rapid) - Final Radiography Diagnostic Testing: Radiology Impression Chest X-Ray 04/23/23 10:31 IMPRESSION: No acute pulmonary abnormality. Stable cardiomegaly. Electronically Signed: Kenny Culp MD at 11:10 EDT , Chest CTA 04/23/23 13:37 IMPRESSION: 1. No evidence of acute pulmonary embolism. 2. Cardiomegaly. 3. Cholelithiasis. 4. Bilateral adrenal adenomata. 5. 2.2 cm right thyroid nodule. Electronically Signed: Kenny Culp MD at 14:55 EDT , Pelvis X-Ray 04/23/23 14:07 IMPRESSION: No evidence of displaced pelvic or hip fracture. Electronically Signed: Jonnathan Cadena MD at 17:28 EDT , Physical Exam Const alert, oriented x3 and no apparent distress Constitutional Narrative: lethargic General Appearance: cooperative HEENT normocephalic, head/scalp atraumatic and hearing grossly normal bilaterally Eyes PERRL, EOMs intact bilaterally and conjunctivae normal Neck no lymphadenopathy and supple Resp normal respiratory effort, normal air movement, no retractions and no use of accessory muscles Cardio regular rate, regular rhythm, S1 normal heart sound, S2 normal heart sound and no murmurs GI normal to inspection, nondistended, normoactive bowel sounds, soft to palpation,non-tender and non-distended Extremity normal to inspection, full ROM, normal capillary refill and no clubbing, cyanosis or edema Neuro oriented x3, CN's II-XII intact bilaterally, moves all extremities and no focal motor deficits Sensorium / Orientation: awake and alert Motor Exam: strength 5/5 throughout Psych affect normal Appearance: appropriate Assessment & Plan Assessment/Plan (1) Generalized weakness: (2) Adult failure to thrive: (3) VALENCIA (acute kidney injury): PLAN: Plan #VALENCIA * CR is down to 1.46 today. Continue gentle hydration * baseline Cr is ~ 1.16 * likely pre renal due to decreased intake * continue to trend Cr * #Debility and fialure to thrive * CT chest showed no evidence of PE * PT/OT consult. Fall precautions * #Elevated troponins * Initial troponin was 126 and went down to 124. * Denies any chest pain. EKG showed no acute ST changes. * already on eliquis * denies any chest pain * 2D echo ordered; to be done tomorrow * Sl nitroglycerin prn * cardiology consulted * #History of CVA with mild residual left sided weakness. PT/OT on board. #Hypertension: on spironolactone; hold spironolactone and lisinopril due to VALENCIA #Seizure disorder: on topiramate #History of prostate cancer: s/p radiation. On Bicalutamide #ALBINO: on CPAP #DVT prophylaxis: on eliquis CODE STATUS: Full code * Charges/Coding Visit Charges Inpatient E&M: 05431 Subs Hosp L2 04/24/23 1314 <Electronically signed by Fior Turner MD> Fior Turner MD Cosigner Signature (if applicable): CC: ~ Signed ADDENDUM by Dr. Fior Turner MD on 04/24/23 at 1403 Addendum Cardiology consult consult as patient does not currently have any chest pain or shortness of breath. This could have been related to his elevated creatinine also. This is as per discussion with Dr. Durham the sheet hanger on-call. 04/24/23 1403 <Electronically signed by Fior fuentes MD> Date _ Fior Turner MD Cosigner Signature (if applicable): Date cc: ~* Signed [facility] Work Phone: [phone]) [phone] History and physical note Author Dr. Turner [facility] April 24, 2023 1:14pm Note Date/Time April 23, 2023 1:36 pm [facility] Medical Records Department [address] [place] [address] H&P Exam - Hospitalist 04/23/23 1334 MR#: [id number] Acct: [id number] Name: STEPH BAUMANN Rep #:[id number] : 1950 72 From: Fior Turner MD PCP: Dr. Manuel Beebe MD Status:AD M IN Location: [facility] [id number] HPI - General General Date of Admission: 04/23/23 Date of Service: 04/23/23 HPI Narrative STEPH BAUMANN, is a 72 M with a PMH as outlined who presents via the ED on 04/23/2023 with a complaint of generalised weakness from his SNF. This is his third admission over the last few weeks for generalised weakness. He was recently discharged to the intermediate facility on 04/16/2023 from where he presents today on account of weakness. Staff and snf also noted that he was hypoxic by pulse oximeter. He denied any shortness of breath or cough orchest pain. He denied any fever or chills. He only complained of left hip pain. Review of systems otherwise negative. Vitals in the ED were blood pressure 135/85 with respiratory rate of 20 and he was saturating at 100% on 2 L of oxygen. Temperature was 98.4 Fahrenheit. CBC showed WBC of 8.8 with hemoglobin of 13.9 and platelets of 183. INR was 1.7. Chemistry was significant for creatinine of 2.04 with a baseline of around 1.16. CTA of the chest done was negative for any evidence of PE. He complained of left hip pain and x- ray of the left hip done was negative for any evidence of fracture. He has been admitted to be managed for VALENCIA and debility and deconditioning. [facility] Medical History Acute and chronic respiratory failure with hypoxia Acute heart failure with reduced ejection fraction and diastolic dysfunction Adult failure to thrive Ambulates with cane Anticoagulant long-term use Ascites Asthma Atherosclerosis of coronary artery of [place] heart without angina pectoris Atrial fibrillation and flutter Back pain Benign brain tumor Cholelithiasis Chronic combined systolic and diastolic CHF (congestive heart failure) Chronic kidney disease (CKD) Cirrhosis of liver Cirrhosis of liver with ascites CPAP (continuous positive airway pressure) dependence Debility Diabetes Diabetes mellitus, type II Essential (primary) hypertension Former smoker History of atrial fibrillation History of CVA (cerebrovascular accident) History of ulceration Hyperlipidemia Injury of back Insulin dependent diabetes mellitus Longstanding persistent atrial fibrillation Non-rheumatic tricuspid valve insufficiency Nonischemic cardiomyopathy NSTEMI (non-ST elevated myocardial infarction) (10/09/19) ALBINO (obstructive sleep apnea) Parkinson's disease 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 Right inguinal hernia Right ventricular systolic dysfunction Secondary pulmonary arterial hypertension Seizure disorder Sleep apnea Stasis edema of both lower extremities Stroke/cerebrovascular accident Thyroid disease Weakness Wears glasses Home Medications insulin glargine 100 unit/mL (3 mL) subcutaneous pen 27 unit SQ QHS diabetes 10/30/18 [History Last Taken 04/12/23] bicalutamide 50 mg tablet (Casodex) 50 mg PO DAILY prostate 12/10/21 [History Last Taken 04/13/23] multivitamin 1 tab PO DAILY supplement 02/19/22 [History Last Taken 04/13/23] bumetanide 1 mg tablet 1 tab PO TID water pill 04/25/22 [History Last Taken 04/13/23] lisinopril 40 mg tablet 40 mg PO DAILY 09/09/22 [History Last Taken 04/12/23] omeprazole 20 mg capsule,delayed release 20 mg PO BID 09/09/22 [History Last Taken 04/13/23] baclofen 20 mg tablet 20 mg PO TID #90 tabs 12/23/22 [Rx Last Taken 04/13/23] apixaban 5 mg tablet (Eliquis) 5 mg PO BID 04/13/23 [History Last Taken 04/13/23] carvedilol 3.125 mg tablet 3.125 mg PO BID BP 04/13/23 [History Last Taken 04/12/23] dextrose 40 % oral gel (Glucose Gel) 15 g PO Q15M PRN Hypoglycemia 04/23/23 [History Last Taken Unknown] tramadol 50 mg tablet 50 mg PO Q12H PRN PRN Pain 04/23/23 [History Last Taken Unknown] Allergy/AdvReac Type Severity Reaction Status Date / Time acetaminophen AdvReac Other Verified 04/23/23 10:15 oxycodone AdvReac hallucinati Verified 04/23/23 10:15 ons Family History Daughter Heart disease valve replacement/chf Diabetes Mother Thyroid disorder Surgical History Biventricular ICD (implantable cardioverter-defibrillator) in place (10/12/19) H/O excision of tumor of brain meninges (2011) History of arthroplasty of right hip History of cardiac catheterization History of cardioversion (05/05/20) History of left heart catheterization (08/31/19) History of percutaneous coronary intervention (10/10/19) History of right and left heart catheterization History of right hip hemiarthroplasty History of tonsillectomy Social History household members: none Smoking Status: Former smoker how long ago did patient quit smokin years second hand exposure: No alcohol intake: never substance use type: does not use regla/yazidism: None seatbelt use: always ROS Constitutional Constitutional: Reports fatigue, malaise and weakness; Denies anorexia, chills or fever(s) Eyes Eyes: Denies change in vision ENT HEENT: Denies dysphagia or headache(s) Cardiovascular Cardiovascular: Denies chest pain, dyspnea on exertion, edema, lightheadedness, orthopnea or palpitations Respiratory/Chest Respiratory/Chest: Denies cough, dyspnea, shortness of breath at rest or shortness of breath with exertion Gastrointestinal Gastrointestinal: Denies abdominal pain, constipation, diarrhea, loose stools, melena, nausea or vomiting Genitourinary Genitourinary: Denies burning urination or hematuria Musculoskeletal Musculoskeletal: Reports joint pain; Denies arthralgias, back pain, joint stiffness, joint swelling or myalgias Neurologic Neurologic: Denies confusion, dizziness, focal weakness or headache(s) Psychiatric Psychiatric: Denies anxiety or depression Vital Signs Vital Signs Vital Signs: 04/23/23 10:09 04/23/23 10:16 04/23/23 11:47 Temperature 98.9 F Temperature Source Oral Pulse Rate 82 Respiratory Rate 18 Respiratory Effort Normal Non-Labored Blood Pressure 130/77 H Blood Pressure Mean 94 Pulse Ox 98 100 Oxygen Delivery Method Room Air Nasal Cannula Oxygen Flow Rate (L/min) 2 04/23/23 12:15 04/23/23 13:12 Temperature Temperature Source Pulse Rate 70 Respiratory Rate 12 Respiratory Effort Blood Pressure 135/85 H Blood Pressure Mean 101 Pulse Ox 100 100 Oxygen Delivery Method Nasal Cannula Nasal Cannula Oxygen Flow Rate (L/min) 2 2 Weight Weight: 171 lb 15.369 oz Body Mass Index (BMI) 25.4 Physical Exam Const alert, oriented x3 and no apparent distress Constitutional Narrative: lethargic General Appearance: cooperative HEENT hearing grossly normal bilaterally; Negative for head/scalp atraumatic HEENT Narrative: dry oral mucosal membranes Eyes PERRL, EOMs intact bilaterally and conjunctivae normal Neck no lymphadenopathy and supple Resp normal respiratory effort, no retractions and no use of accessory muscles Cardio regular rate, regular rhythm, S1 normal heart sound, S2 normal heart sound and no murmurs GI normal to inspection, nondistended, normoactive bowel sounds, soft to palpation,non-tender and non-distended Extremity normal to inspection, full ROM and no clubbing, cyanosis or edema Neuro oriented x3, CN's II-XII intact bilaterally, moves all extremities and no focal motor deficits Sensorium / Orientation: awake and alert Motor Exam: strength 5/5 throughout Psych affect normal Results Lab / Micro Data Result Diagrams: 04/23/23 10:44 04/23/23 10:44 Labs: Laboratory Results - last 24 hr 04/23/23 10:44: WBC 8.8, RBC 4.25 L, Hgb 13.9, Hct 41.4, MCV 97.4 H, MCH 32.7 H,MCHC 33.6, RDW Std Deviation 49.1 H, RDW Coeff of Yonathan 13.7, Plt Count 183, MPV 11.3, Immature Gran % (Auto) 0.500, Neut % (Auto) 84.7 H, Lymph % (Auto) 7.2 L, [place] % (Auto) 6.6, Eos % (Auto) 0.7, Baso % (Auto) 0.3, Absolute Neuts (auto) 7.4, Absolute Lymphs (auto) 0.63 L, Nucleated RBC % 0 04/23/23 10:44: PT 20.3 H, INR 1.7, APTT 34.0 04/23/23 10:44: Sodium 143, Potassium 4.1, Chloride 104, Carbon Dioxide 31.0, Anion Gap 8, BUN 57 H, Creatinine 2.04 H, Estim Creat Clear Calc 33.69, Est GFR (MDRD) Af Amer 42 L, Est GFR (MDRD) Non-Af 34 L, BUN/Creatinine Ratio 27.9 H, Glucose 146 H, Calcium 9.9, Total Bilirubin 0.90, AST 23, ALT 22, Alkaline Phosphatase 130 H, Troponin I High Sens 126 H*, Total Protein 8.3 H, Albumin 3.7, Globulin 4.6 H, Albumin/Globulin Ratio 0.8 L, Lipase 11 L 04/23/23 10:44: Ammonia 13.0 04/23/23 11:06: Urine Color Yellow, Urine Clarity Clear, Urine pH 5.0, Ur Specific Shanks 1.020, Urine Protein 15 H, Urine Glucose (UA) Normal, Urine Ketones Negative, Urine Occult Blood Negative, Urine Nitrite Negative, Urine Bilirubin Negative, Urine Urobilinogen Normal, Ur Leukocyte Esterase Negative, Urine RBC 0 SEEN, Urine WBC 0 SEEN, Ur Squamous Epith Cells 0-5 SEEN, Urine Bacteria 0 SEEN, Urine Mucus 0 SEEN Micro: Microbiology 04/23/23 10:44 Nasal Secretion SARS-CoV-2 & FLU Antigen (Rapid) - Final Radiology Impression Chest X-Ray 04/23/23 10:31 IMPRESSION: No acute pulmonary abnormality. Stable cardiomegaly. Electronically Signed: Kenny Culp MD at 11:10 EDT , Assessment & Plan Assessment/Plan (1) Generalized weakness: (2) Adult failure to thrive: (3) VALENCIA (acute kidney injury): PLAN: Plan #VALENCIA * Cr is 2.04 * admit to PCU due ot hypoxia * baseline Cr is ~ 1.16 * likely pre renal due to decreased intake * hydrate with IVF * trend Cr * do further workup including FeUrea and FeNa and renal USG if Cr doesnt improve * #Debility and fialure to thrive * CT chest showed no evidence of PE * PT/OT consult. Fall precautions * #Elevated troponins * Initial troponin was 126 and went down to 124. * Denies any chest pain. EKG showed no acute ST changes. * already on eliquis * denies any chest pain * get 2D echo * Sl nitroglycerin prn * get cardiology consult based on echo results * #History of CVA with mild residual left sided weakness. PT/OT on board. #Hypertension: on spironolactone; hold spironolactone and lisinopril due to VALENCIA #Seizure disorder: on topiramate #History of prostate cancer: s/p radiation. On Bicalutamide #ALBINO: on CPAP #DVT prophylaxis: on eliquis CODE STATUS: Full code * Patient counseled extensively about different types of CODE STATUS including full code, DNR CCA and DNR CCA. Patient elects to be full code. Total [id number] time 16 minutes. Charges/Coding Visit Charges Inpatient E&M: 45804 Init Hosp L2 Procedures Hospitalists Procedures: 04003 Advncd Care Plan 30 Min 04/24/23 1314 <Electronically signed by Fior Turner MD> Cosigner Signature (if applicable): CC: Dr. Manuel Beebe MD; Dr. Fior Turner MD~ Signed [facility] Work Phone: 1(284) 353-942506-18-[address] Olivia [facility] April 23, 2023 11:19pm Note Date/Time April 23, 2023 10:3 6am [facility] Medical Records Department [address] [place] [address] Emergency Department Summary 04/23/23 MR#: [id number] Acct: [id number] Name: STEPH BAUMANN Rep #:[id number] : 1950 72 From: Goldy Huang PCP: Dr. Manuel Beebe MD Status:AD M IN Location: [place] [address] HPI History of Present Illness Chief Complaint: Alt LOC Informant: patient Onset/Context/Timing Context: Gradual Onset Timing: Continuous Quality: Weakness Location: Generalized Worsened by: Nothing Relieved by: Nothing Associated Symptoms Associated Symptoms: Headache Narrative Narrative: Patient presents with generalized weakness that became worse today. Patient states he feels weak all over. Patient lives in an extended care facility. Patient was recently admitted there for deconditioning. Staff there reported that the patient had a low pulse oximeter reading today. Patient denies any shortness of breath or cough. Patient denies any fevers or chills. Patient does admit to a headache. Patient denies any focal weakness. [facility] Medical History Acute and chronic respiratory failure with hypoxia Acute heart failure with reduced ejection fraction and diastolic dysfunction Adult failure to thrive Ambulates with cane Anticoagulant long-term use Ascites Asthma Atherosclerosis of coronary artery of [place] heart without angina pectoris Atrial fibrillation and flutter Back pain Benign brain tumor Cholelithiasis Chronic combined systolic and diastolic CHF (congestive heart failure) Chronic kidney disease (CKD) Cirrhosis of liver Cirrhosis of liver with ascites CPAP (continuous positive airway pressure) dependence Debility Diabetes Diabetes mellitus, type II Essential (primary) hypertension Former smoker History of atrial fibrillation History of CVA (cerebrovascular accident) History of ulceration Hyperlipidemia Injury of back Insulin dependent diabetes mellitus Longstanding persistent atrial fibrillation Non-rheumatic tricuspid valve insufficiency Nonischemic cardiomyopathy NSTEMI (non-ST elevated myocardial infarction) (10/09/19) ABLINO (obstructive sleep apnea) Parkinson's disease 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 Right inguinal hernia Right ventricular systolic dysfunction Secondary pulmonary arterial hypertension Seizure disorder Sleep apnea Stasis edema of both lower extremities Stroke/cerebrovascular accident Thyroid disease Weakness Wears glasses Home Medications insulin glargine 100 unit/mL (3 mL) subcutaneous pen 27 unit SQ QHS diabetes 10/30/18 [History Last Taken 04/12/23] bicalutamide 50 mg tablet (Casodex) 50 mg PO DAILY prostate 12/10/21 [History Last Taken 04/13/23] multivitamin 1 tab PO DAILY supplement 02/19/22 [History Last Taken 04/13/23] bumetanide 1 mg tablet 1 tab PO TID water pill 04/25/22 [History Last Taken 04/13/23] lisinopril 40 mg tablet 40 mg PO DAILY 09/09/22 [History Last Taken 04/12/23] omeprazole 20 mg capsule,delayed release 20 mg PO BID 09/09/22 [History Last Taken 04/13/23] baclofen 20 mg tablet 20 mg PO TID #90 tabs 12/23/22 [Rx Last Taken 04/13/23] apixaban 5 mg tablet (Eliquis) 5 mg PO BID 04/13/23 [History Last Taken 04/13/23] carvedilol 3.125 mg tablet 3.125 mg PO BID BP 04/13/23 [History Last Taken 04/12/23] dextrose 40 % oral gel (Glucose Gel) 15 g PO Q15M PRN Hypoglycemia 04/23/23 [History Last Taken Unknown] tramadol 50 mg tablet 50 mg PO Q12H PRN PRN Pain 04/23/23 [History Last Taken Unknown] Allergy/AdvReac Type Severity Reaction Status Date / Time acetaminophen AdvReac Other Verified 04/23/23 10:15 oxycodone AdvReac hallucinati Verified 04/23/23 10:15 ons Family History Daughter Heart disease valve replacement/chf Diabetes Mother Thyroid disorder Surgical History Biventricular ICD (implantable cardioverter-defibrillator) in place (10/12/19) H/O excision of tumor of brain meninges (2011) History of arthroplasty of right hip History of cardiac catheterization History of cardioversion (05/05/20) History of left heart catheterization (08/31/19) History of percutaneous coronary intervention (10/10/19) History of right and left heart catheterization History of right hip hemiarthroplasty History of tonsillectomy Social History household members: none Smoking Status: Former smoker how long ago did patient quit smokin years second hand exposure: No alcohol intake: never substance use type: does not use regla/yazidism: None seatbelt use: always ROS ROS ED Constitutional Constitutional ED: Denies chills or fever(s) Eyes Eyes: Denies blurry vision or change in vision ENT ENT ED: Denies rhinorrhea or sore throat Cardiovascular Cardiovascular: Denies chest pain or palpitations Respiratory/Chest Respiratory/Chest: Denies cough or dyspnea Gastrointestinal Gastrointestinal: Denies nausea or vomiting Genitourinary Genitourinary ED: Denies dysuria or hematuria Musculoskeletal Musculoskeletal: Denies back pain or neck pain Integumentary Denies abscess or rash Neurologic Neurologic: Reports headache(s) and weakness Allergic/Immunologic Allergic/Immunologic ED: Denies mouth swelling or urticaria EXAM Physical Exam Const Vital Signs: 04/23/23 10:09 04/23/23 10:16 04/23/23 11:47 Temperature 98.9 F Temperature Source Oral Pulse Rate 82 Respiratory Rate 18 Respiratory Effort Normal Non-Labored Blood Pressure 130/77 H Blood Pressure Mean 94 Pulse Ox 98 100 Oxygen Delivery Method Room Air Nasal Cannula Oxygen Flow Rate (L/min) 2 04/23/23 12:15 04/23/23 13:12 Temperature Temperature Source Pulse Rate 70 Respiratory Rate 12 Respiratory Effort Blood Pressure 135/85 H Blood Pressure Mean 101 Pulse Ox 100 100 Oxygen Delivery Method Nasal Cannula Nasal Cannula Oxygen Flow Rate (L/min) 2 2 Positive well nourished and well developed General Appearance ED: well developed and NAD Neck supple and no JVD Resp normal respiratory effort and clear to auscultation bilaterally Auscultation: diminished lung sounds Cardio regular rate and regular rhythm GI normal to inspection, nondistended, normoactive bowel sounds and non-tender Palpation: soft Neuro CN's II-XII intact bilaterally and no sensory deficits noted Sensorium / Orientation: alert Motor Exam: strength 5/5 throughout MDM MDM MDM Narrative Medical decision making narrative: Differential diagnosis includes anemia, electrolyte abnormality, hepatic encephalopathy, infection, cardiac ischemia, and cardiac dysrhythmia. EKG will be obtained to assess for cardiac dysrhythmia and cardiac ischemia. CBC will beobtained to assess for anemia and leukocytosis. Comprehensive metabolic profilewill be obtained to assess for hepatic function, renal function, and electrolyteabnormality. Lipase will be obtained to assess for pancreatitis. PT with INR and PTT will be obtained to assess for coagulopathy. High-sensitivity troponin will be obtained to assess for cardiac ischemia. Urinalysis will be obtained toassess for urinary tract infection. COVID-19 rapid antigen will be obtained to assess for COVID infection. Influenza A and influenza B antigens will be obtained to assess for influenza infection. Chest x-ray will be obtained to assess for pneumonia. Lab Data Attestation: I reviewed the patient's lab results. Lab results narrative: CBC was reviewed and was within normal limits. PT with INR and PTT were reviewed. Pro time was 20.3 and INR is 1.7. PTT was normal at 34. Comprehensive metabolic profile showed a BUN of 57 and creatinine of 2.04. These were increased from previous result. Alkaline phosphatase was slightly elevated at 130. High-sensitivity troponin was reviewed and was slightly elevated at 126. Lipase was reviewed and was normal at 11. Serum ammonia levelwas and was normal at 13. Urinalysis was reviewed. There is no evidence of urinary tract infection or hematuria. Labs: Laboratory Results - last 24 hr 04/23/23 04/23/23 04/23/23 10:44 10:44 10:44 WBC 8.8 RBC 4.25 L Hgb 13.9 Hct 41.4 MCV 97.4 H MCH 32.7 H MCHC 33.6 RDW Std Deviation 49.1 H RDW Coeff of Yonathan 13.7 Plt Count 183 MPV 11.3 Immature Gran % (Auto) 0.500 Neut % (Auto) 84.7 H Lymph % (Auto) 7.2 L [place] % (Auto) 6.6 Eos % (Auto) 0.7 Baso % (Auto) 0.3 Absolute Neuts (auto) 7.4 Absolute Lymphs (auto) 0.63 L Nucleated RBC % 0 PT 20.3 H INR 1.7 APTT 34.0 Sodium 143 Potassium 4.1 Chloride 104 Carbon Dioxide 31.0 Anion Gap 8 BUN 57 H Creatinine 2.04 H Estim Creat Clear Calc 33.69 Est GFR (MDRD) Af Amer 42 L Est GFR (MDRD) Non-Af 34 L BUN/Creatinine Ratio 27.9 H Glucose 146 H Calcium 9.9 Total Bilirubin 0.90 AST 23 ALT 22 Alkaline Phosphatase 130 H Ammonia Troponin I High Sens 126 H* Total Protein 8.3 H Albumin 3.7 Globulin 4.6 H Albumin/Globulin Ratio 0.8 L Lipase 11 L Urine Color Urine Clarity Urine pH Ur Specific Shanks Urine Protein Urine Glucose (UA) Urine Ketones Urine Occult Blood Urine Nitrite Urine Bilirubin Urine Urobilinogen Ur Leukocyte Esterase Urine RBC Urine WBC Ur Squamous Epith Cells Urine Bacteria Urine Mucus 04/23/23 04/23/23 04/23/23 10:44 11:06 13:00 WBC RBC Hgb Hct MCV MCH MCHC RDW Std Deviation RDW Coeff of Yonathan Plt Count MPV Immature Gran % (Auto) Neut % (Auto) Lymph % (Auto) [place] % (Auto) Eos % (Auto) Baso % (Auto) Absolute Neuts (auto) Absolute Lymphs (auto) Nucleated RBC % PT INR APTT Sodium Potassium Chloride Carbon Dioxide Anion Gap BUN Creatinine Estim Creat Clear Calc Est GFR (MDRD) Af Amer Est GFR (MDRD) Non-Af BUN/Creatinine Ratio Glucose Calcium Total Bilirubin AST ALT Alkaline Phosphatase Ammonia 13.0 Troponin I High Sens 124 H* Total Protein Albumin Globulin Albumin/Globulin Ratio Lipase Urine Color Yellow Urine Clarity Clear Urine pH 5.0 Ur Specific Shanks 1.020 Urine Protein 15 H Urine Glucose (UA) Normal Urine Ketones Negative Urine Occult Blood Negative Urine Nitrite Negative Urine Bilirubin Negative Urine Urobilinogen Normal Ur Leukocyte Esterase Negative Urine RBC 0 SEEN Urine WBC 0 SEEN Ur Squamous Epith Cells 0-5 SEEN Urine Bacteria 0 SEEN Urine Mucus 0 SEEN Radiography Chest X-Ray - ED: 1 View, Read by ED Physician, Read by Radiologist and No AcuteDisease CTA PE Study: No Evidence of PE and No Evidence of Dissection Diagnostic Testing: Clinical Impression(s) from Imaging Studies Chest X-Ray 04/23/23 10:31 IMPRESSION: No acute pulmonary abnormality. Stable cardiomegaly. Electronically Signed: Kenny Culp MD at 11:10 EDT , Chest CTA 04/23/23 13:37 IMPRESSION: 1. No evidence of acute pulmonary embolism. 2. Cardiomegaly. 3. Cholelithiasis. 4. Bilateral adrenal adenomata. 5. 2.2 cm right thyroid nodule. Electronically Signed: Kenny Culp MD at 14:55 EDT , Portable 1 view chest x-ray was obtained. On my independent interpretation, lung peters are clear. There is normal cardiac silhouette. Bony thorax is normal. There is no acute process noted. Radiologist also interpreted the x-ray and agrees. CTA of the chest was obtained. There is no evidence of pulmonary embolism or aortic dissection. There is cardiomegaly. This was interpreted by the radiologist and was also independently reviewed by myself. Treatment and Re-Evaluation :: Patient was given IV fluids and aspirin. Patient was advised of his findings. Due to the increase in BUN and creatinine, I feel the patient would benefit frominpatient treatment for acute kidney injury. Due to the elevated high-sensitivity troponin, a 2-hour repeat high-sensitivity troponin will be obtained. Case was discussed with the hospitalist. She recommended getting a CTA of the chest. This was ordered. Patient will be admitted to the hospital. Patient understood and was agreeable with the plan. All questions were answered. Discharge Plan Dx/Rx/DC Orders Clinical Impression: VALENCIA (acute kidney injury), Generalized weakness, Elevated troponin Disposition Disposition: Acute Care Hospital [facility] Discharge Date/Time: 04/23/23 14:29 What to do if you have Problems For any increased pain, shortness of breath, bleeding, nausea or vomiting, chestpain, or any unexpected problems, contact your Primary Care Provider. Call [facility] ([phone]) or report to the closest Emergency Room. Call 911 if necessary. 04/23/23 4194 <Electronically signed by Goldy Olivia DO> Cosigner Signature (if applicable): CC: Dr. Manuel Beebe MD ~ Signed [facility] Work Phone: [phone] 529-176206-16-2023 Miscellaneous Notes* Telephone Encounter - [place] - 04/22/2023 9:08 AM EDT 04-22....Patient is currently in rehab,Cancelled his appointment on 05-03, will call to r/s later any questions call Bob Ferraro [phone] [place] [facility] of Present illness Narrative* Dinorah Posada RN - 04/21/2023 7:05 PM EDT CDM Telephonic Outreach Provider Action/FYI CDM: CHF, Asthma Called Pt, unable to leave a message to verify symptom status and needs. Contacted for: Routine Telephonic Outreach Contact made with patient: No, unable to leave message. Will reattempt call Dinorah Posada RN April 21, 2023 7:05 PM * Dinorah Posada RN - 04/20/2023 2:33 PM EDT CDM Telephonic Outreach Provider Action/FYI CDM: CHF, Asthma Called Pt, unable to leave a message to verify symptom status and needs. Contacted for: Routine Telephonic Outreach Contact made with patient: No, unable to leave message. Will reattempt call Dinorah Posada RN April 20, 2023 2:37 PM [facility] Hope [facility] April 13, 2023 5:31pm Note Date/Time April 13, 2023 2:50p m [facility] Medical Records Department [address] [place] [address] Emergency Department Summary 04/13/23 MR#: [id number] Acct: [id number] Name: STEPH BAUMANN Rep #:[id number] : 1950 72 From: Jo-Ann Bliss DO PCP: Dr. Manuel Beebe MD Status:RE G ER Location: ED ADDENDUM by Dr. Harpreet Hope MD on 04/13/23 at 1731 UA is unremarkable. Case management has been involved with patient. He will need to be observed overnight for placement to snf. 04/13/23 1731<Electronically signed by Harpreet Hope MD> Cosigner Signature (if applicable): cc: Dr. Manuel Beebe MD ~* Signed HPI History of Present Illness Chief Complaint: Weakness Detail of Chief Complaint: Weakness Informant: patient and other Narrative Narrative: Patient presents to the emergency department via EMS with complaint of generalized weakness. Patient with history of cirrhosis as well as history of A-fib. History of prior CVA and history of diabetes and hypertension. Was seenin the emergency department several days ago for same complaint of weakness and hypotension and apparently was not admitted. They were being seen by high school social science teacher and trying to arrange physical therapy at home as patient did not want togo to a rehab center. Patient now too weak to be at home and is not safe to be at home by himself. Normally would walk with a walker but now unable to. He denies fevers or chills or sweats. He denies vomiting currently but did throw up once 3 days ago. He has not had any diarrhea. He denies abdominal pain or chest pain. [facility] Medical History Acute and chronic respiratory failure with hypoxia Acute heart failure with reduced ejection fraction and diastolic dysfunction Ambulates with cane Anticoagulant long-term use Ascites Asthma Atherosclerosis of coronary artery of [place] heart without angina pectoris Atrial fibrillation and flutter Back pain Benign brain tumor Cholelithiasis Chronic combined systolic and diastolic CHF (congestive heart failure) Chronic kidney disease (CKD) Cirrhosis of liver Cirrhosis of liver with ascites CPAP (continuous positive airway pressure) dependence Diabetes Diabetes mellitus, type II Essential (primary) hypertension Former smoker History of atrial fibrillation History of CVA (cerebrovascular accident) History of ulceration Hyperlipidemia Injury of back Insulin dependent diabetes mellitus Longstanding persistent atrial fibrillation Non-rheumatic tricuspid valve insufficiency Nonischemic cardiomyopathy NSTEMI (non-ST elevated myocardial infarction) (10/09/19) ALBINO (obstructive sleep apnea) 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 Right inguinal hernia Right ventricular systolic dysfunction Secondary pulmonary arterial hypertension Seizure disorder Sleep apnea Stasis edema of both lower extremities Stroke/cerebrovascular accident Thyroid disease Wears glasses Home Medications insulin glargine 100 unit/mL (3 mL) subcutaneous pen 27 unit SQ QHS diabetes 10/30/18 [History Last Taken 01/30/19] bicalutamide 50 mg tablet (Casodex) 50 mg PO DAILY prostate 12/10/21 [History Last Taken 02/18/22 10:32] loratadine 10 mg capsule 10 mg PO DAILY PRN allergies 12/10/21 [History Last Taken 02/18/22 10:32] multivitamin 1 tab PO DAILY supplement 02/19/22 [History Last Taken 02/18/22 10:31] bumetanide 1 mg tablet 1 tab PO TID water pill 04/25/22 [History Last Taken Unknown] apixaban 5 mg tablet (Eliquis) See Rx Instructions .Route .COMPLEX #60 TABLETS 05/19/22 [Rx Last Taken Unknown] lisinopril 40 mg tablet 40 mg PO DAILY 09/09/22 [History Last Taken Unknown] omeprazole 20 mg capsule,delayed release 20 mg PO BID 09/09/22 [History Last Taken Unknown] baclofen 20 mg tablet 20 mg PO TID #90 tabs 12/23/22 [Rx Last Taken Unknown] carvedilol 6.25 mg tablet 6.25 mg PO BID This is a dose increase #180 tabs 03/10/23 [Rx Last Taken Unknown] albuterol 90 mcg/actuation aerosol inhaler 180 mcg inhalation Q6H PRN Shortness Of Breath 04/11/23 [History Last Taken Unknown] budesonide-formoterol HFA 80 mcg-4.5 mcg/actuation aerosol inhaler 2 puff inhalation BID 04/11/23 [History Last Taken Unknown] cyanocobalamin (vitamin B-12) 1,000 mcg tablet 1,000 mcg PO DAILY 04/11/23 [History Last Taken Unknown] fluticasone furoate 100 mcg-vilanterol 25 mcg/dose inhalation powder 1 ea inhalation DAILY 04/11/23 [History Last Taken Unknown] tamsulosin 0.4 mg capsule 0.4 mg PO QHS 04/11/23 [History Last Taken Unknown] Allergy/AdvReac Type Severity Reaction Status Date / Time acetaminophen AdvReac Other Verified 01/06/23 13:44 oxycodone AdvReac hallucinati Verified 01/06/23 13:44 ons Family History Daughter Heart disease valve replacement/chf Diabetes Mother Thyroid disorder Surgical History Biventricular ICD (implantable cardioverter-defibrillator) in place (10/12/19) H/O excision of tumor of brain meninges (2011) History of arthroplasty of right hip History of cardiac catheterization History of cardioversion (05/05/20) History of left heart catheterization (08/31/19) History of percutaneous coronary intervention (10/10/19) History of right and left heart catheterization History of right hip hemiarthroplasty History of tonsillectomy Social History household members: none Smoking Status: Former smoker how long ago did patient quit smokin years second hand exposure: No alcohol intake: never substance use type: does not use regla/yazidism: None seatbelt use: always ROS ROS ED Review of Systems ROS Unobtainable: other Constitutional Constitutional ED: Reports lethargy; Denies chills, fever(s), sweats or weight loss Eyes Eyes: Denies blurry vision, change in vision or diplopia ENT ENT ED: Denies rhinorrhea or sore throat Cardiovascular Cardiovascular: Denies chest pain, orthopnea or racing heartbeat Respiratory/Chest Respiratory/Chest: Denies cough, dyspnea, dyspnea on exertion, orthopnea or sputum Gastrointestinal Gastrointestinal: Denies abdominal pain, diarrhea, nausea or vomiting Genitourinary Genitourinary ED: Denies dysuria, hematuria or urinary frequency Musculoskeletal Musculoskeletal: Denies arthralgias, back pain, myalgias or neck pain Integumentary Denies abscess, Abrasions or rash Neurologic Neurologic: Reports weakness; Denies headache(s) Psychiatric Psychiatric: Denies anxiety, depression or suicidal thoughts Endocrine Endocrinology: Denies polydipsia, polyphagia or polyuria Hematologic/Lymphatic Hematologic/Lymphatic: Denies easy bleeding, easy bruising or lymphadenopathy Allergic/Immunologic Allergic/Immunologic ED: Denies mouth swelling, tongue swelling or urticaria EXAM Physical Exam Const Vital Signs: 04/13/23 14:09 04/13/23 14:12 Temperature 97.9 F Temperature Source Oral Pulse Rate 71 Respiratory Rate 18 Respiratory Effort Normal Blood Pressure 106/77 Blood Pressure Mean 86 Pulse Ox 98 Oxygen Delivery Method Room Air Positive well nourished and well developed General Appearance ED: well developed and NAD HEENT Reports TM's clear and moist mucous membranes normocephalic and atraumatic; Negative for trauma or tenderness Tympanic Membrane ED: Yes TM's clear Eyes PERRL and EOMs intact bilaterally General Eye ED: Negative for pale conjunctiva or scleral icterus Neck no lymphadenopathy, supple and no JVD General: Negative for tenderness Chest Wall inspection of chest normal and palpation of chest normal Chest: Negative for tenderness Resp normal respiratory effort and clear to auscultation bilaterally Effort and Inspection: Negative for respiratory distress or pain with movement Auscultation: Negative for rhonchi, wheezes or diminished lung sounds Cardio regular rate, regular rhythm, S1 normal heart sound, S2 normal heart sound and no murmurs Peripheral Pulses: pulses 2+ throughout GI normal to inspection, nondistended, normoactive bowel sounds, soft to palpation,non-tender, non-distended and no masses Back/Spine no CVA tenderness and no thoracic nor lumbar tenderness Extremity normal to inspection General Extremety ED: Negative for edema General Extremity: Negative for edema Neuro oriented x3, CN's II-XII intact bilaterally, no sensory deficits noted and gait normal Sensorium / Orientation: awake, alert, oriented to person, oriented to place andoriented to time Motor Exam: strength 5/5 throughout and strength abnormal Psych mental status grossly normal Skin no rashes or lesions noted and no wounds MDM MDM MDM Narrative Medical decision making narrative: Patient presents with generalized weakness and deconditioning. IV line established on arrival. Patient was ordered a liter normal same fluid bolus. CBC with differential showed a normal white count 7.3 with hemoglobin of 13 and platelet count of 120. Chemistries unremarkable. BUN was 38 and creatinine 1.76. LFTs and lipase normal. Urinalysis ordered and pending. Care of patientturned over to evening physician awaiting urinalysis and likely admission for placement. Lab Data Attestation: I reviewed the patient's lab results. Labs: Laboratory Results - last 24 hr 04/13/23 04/13/23 15:20 15:20 WBC 7.3 RBC 4.04 L Hgb 13.0 Hct 39.1 L MCV 96.8 H MCH 32.2 H MCHC 33.2 RDW Std Deviation 49.0 H RDW Coeff of Yonathan 13.8 Plt Count 120 L MPV 11.5 Immature Gran % (Auto) 1.000 H Neut % (Auto) 80.2 H Lymph % (Auto) 7.0 L [place] % (Auto) 8.1 Eos % (Auto) 3.3 Baso % (Auto) 0.4 Absolute Neuts (auto) 5.9 Absolute Lymphs (auto) 0.51 L Nucleated RBC % 0 Sodium 138 Potassium 4.0 Chloride 103 Carbon Dioxide 29.0 Anion Gap 6 BUN 38 H Creatinine 1.76 H Estim Creat Clear Calc 39.05 Est GFR (MDRD) Af Amer 49 L Est GFR (MDRD) Non-Af 41 L BUN/Creatinine Ratio 21.6 H Glucose 134 H Calcium 9.7 Total Bilirubin 0.60 AST 13 L ALT 7 L Alkaline Phosphatase 117 Troponin I High Sens 76 Total Protein 7.7 Albumin 3.7 Globulin 4.0 Albumin/Globulin Ratio 0.9 Lipase 13 Radiography Diagnostic Testing: Clinical Impression(s) from Imaging Studies Chest X-Ray 04/13/23 15:25 IMPRESSION: No acute mouth is seen. Stable examination. Electronically Signed: Erik Sandoval MD at 15:36 EDT Reading Location ID and State: [facility] / [place] , Service support , 1 view chest x-ray obtained interpreted myself as no acute disease process. Radiology in agreement. EKG Initial EKG: Attestation: I personally reviewed and interpreted this EKG as follows: Comments: Ventricularly paced rhythm with a rate of 72 bpm Discharge Plan Triage Chief Complaint: Weakness ED Provider: Jo-Ann Bliss Dx/Rx/DC Orders Clinical Impression: Generalized weakness, Adult failure to thrive, VALENCIA (acute kidney injury), Transient hypotension Prescriptions: No Action bicalutamide [Casodex] 50 mg tablet 50 mg PO DAILY loratadine 10 mg capsule 10 mg PO DAILY PRN (Reason: allergies) omeprazole 20 mg capsule,delayed release(DR/EC) 20 mg PO BID lisinopril 40 mg tablet 40 mg PO DAILY baclofen 20 mg tablet 20 mg PO TID Qty: 90 5RF insulin glargine 100 UNIT/ML insulin pen 27 unit SQ QHS multivitamin Tablet 1 tab PO DAILY bumetanide 1 mg tablet 1 tab PO TID Hold Instructions: Resume on 04/29/22. Label Comments: TAKE 3 TABLETS BY MOUTH ONCE DAILY albuterol 90 mcg/actuation Aerosol 180 mcg INHALATION Q6H PRN (Reason: Shortness Of Breath) Rx Instructions: (2 puffs) budesonide-formoterol 80-4.5 mcg/actuation Hfa Aerosol Inhaler 2 puff INHALATION BID cyanocobalamin (vitamin B-12) 1,000 mcg Tablet 1,000 mcg PO DAILY fluticasone furoate-vilanterol 100-25 mcg/dose Blister With Device 1 ea INHALATION DAILY tamsulosin 0.4 mg Capsule 0.4 mg PO QHS Eliquis 5 mg tablet See Rx Instructions .ROUTE .COMPLEX Qty: 60 11RF Dose Instruction: TAKE ONE (1) TABLET BY MOUTH TWICE DAILY Rx Instructions: TAKE ONE (1) TABLET BY MOUTH TWICE DAILY carvedilol 6.25 mg tablet 6.25 mg PO BID Qty: 180 3RF Rx Instructions: must administer with a meal/food Primary Care Provider: Manuel Beebe Referrals: Manuel Beebe MD [Primary Care Provider] - What to do if you have Problems For any increased pain, shortness of breath, bleeding, nausea or vomiting, chestpain, or any unexpected problems, contact your Primary Care Provider. Call [facility] ([phone]) or report to the closest Emergency Room. Call 911 if necessary. 04/13/23 1629 <Electronically signed by Jo-Ann Bliss DO> Cosigner Signature (if applicable): CC: Dr. Manuel Beebe MD ~ Signed [facility] Work Phone: [phone]) 592-850006-07-2023 Miscellaneous Notes* Telephone Encounter - Katherine Abarca LPN - 04/13/2023 9:55 AM EDT Spoke with Bob and explained below. Bob voiced her understanding and will discuss with patient. States will see neurologist today and discuss with them her concerns too. * Telephone Encounter - MONIQUE Diego - 04/13/2023 9:37 AM EDT This Sw has no other recommendations and defers to KEYSHAWN Castillo judgement regarding ED evaluation. * Telephone Encounter - Anna Dominguez APRN.CNP - 04/13/2023 9:16 AM EDT If caregiver is leaving out of state and feels patient is not safe alone then he needs to go to ER for evaluation and emergency placement. Even with PT/OT coming in it sounds like there are concerns he needs a higher level of care than that. Myranda, any other suggestions/thoughts? * Telephone Encounter - Jacquelyn Thompson RN - 04/13/2023 8:47 AM EDT Patient's intermittent caregiver Bob Ferraro calling on behalf of patient and asking for PCP Offic[place] advise. Patient was seen by Olga VAN yesterday due to hypotension and other concerns. Pt takes Coreg 3.125 mg twice daily and was advised to hold last night's dose. Bob states dose was held and pt's BP last night was 85/57. This morning pt's BP was 100/72. Bob states she held pt's morning dose of Coreg as well as his Lisinopril 40 mg. Bob will be leaving to go back out of state tomorrow and feels patient is unsafe to be left home alone. Pt has no family and no one to help care for him. Pt has [facility] PT and OT ordered but has not come yet. Per Bob, Physical Therapy is coming today to evaluate him at 11:30am, unsure of when OT will be coming. Bob states pt has Life Alert and a walker. Bob states pt may be open to going to SNF for rehab,but not sure if he will. Bob aware that Olga is out of office today and message would be sent to PCP office for review. Please call Bob at [phone]. documented in this encounterEast [facility]06-06-2023 Miscellaneous Notes* Telephone Encounter - Lashonda Moore LPN - 04/12/2023 4:08 PM EDT Patient seen today * Telephone Encounter - Lashonda Moore LPN - 04/12/2023 10:59 AM EDT Spoke with Jasmyne, an nurse with [employer] and gave her providers message and verbalized understanding. Attempted to contact patient but no answer. Left message for patient to call office and ask to speak to a nurse about scheduling a hospital f/u with REHAN Villavicencio CNP next week. * Telephone Encounter - Olga Styles APRN.CNS - 04/12/2023 8:36 AM EDT OK for [facility]. Schedule hospital follow up appointment. * Telephone Encounter - Reina Mcgee LPN - 04/11/2023 2:20 PM EDT Jasmyne, an nurse with [employer] , calls for VO for OT and PT. Pt is supposed to be dc'd from [facility] on 04/12. Call Jasmyne with 's VO. Reina Mcgee LPN documented in this encounterEast Liverpool City Hospital06-06-2023 Instructions* Patient Instructions* Olga Styles APRN.CNS - 04/12/2023 2:45 PM [...] severe or concerning symptoms documented in this encounterEast Liverpool City Hospital06-06-2023 History of Present illness Narrative* Olga Styles APRN.QUALITY CONTROL SUPERVISOR - 04/12/2023 2:20 PM EDT SUBJECTIVE: DILATED RETINAL EXAM due on 08/23/2017 [...] inguinal hernia which is reducible. He is inneed of repair of inguinal hernia before undergoing [...] incontinence. States he has not taken spironolactone forcouple months due to feeling it was too much diuretic for him. Currently taking Bumex 3 mg daily. Recently seen in urology by ANDREA Mazariegos. Noted that he was having post void residual. PSA was elevated. He was referred to urologist for biopsy. Noted he was unable to travel to [place] or [place] so he was instead seen at [facility] by Dr. Abreu. Diagnosed with prostate cancer, treatment with radiation planned; has begun the process for this; procedure earlier today at [facility]. Notes he had procedure yesterday at [facility] cancer Center [facility] for prostate cancer. Without report of headache, chest pain, palpitations, dyspnea, peripheral edema, orthopnea, fatigueand PND. Occasional positional lightheadedness that passes in [...] 173 to 307 since last here. Notes hedid increase his dose of insulin. He was admitted to [facility] on April 10, 2023 through April 12, 2023 for adult failure to thrive. He presented with report of getting weaker and more debilitated at home and also feeling dehydrated. EMS was called for transport and thought he was confused initially. CT of the brain was completed and showed no acute pathology. PT and OT was consulted. Fall precautions were placed. Hewas placed in observation for failure to thrive [...] for the next 2 days. Discharge from hospitaltoday. He is so weak it takes 2 to stand him at the scale today. He is feeling nauseous and it is difficult for him to stay awake. Reports cardiology increased carvedilol from 3.125 to 6.25 mg Apr 04 2023. Continues on carbidopa levodopa 25-100 mg 3 times daily and baclofen 20 mg [address] Horton neurologist [facility]. He has a neurology appointment tomorrow, [...] Metformin Diarrhea Even low dose caused diarrhea Mason [Hydrocodone-* Intolerance Hallucination Medications traMADol (ULTRAM) 50 [...] 100 unit/mL (3 mL) Inject 27 Units subcutaneouslydaily at bedtime. Adjust dose as directed carbidopa-levodopa [...] Two times a day. 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 Yes E11.9 DM 2 insulin needles, DISPOSABLE, (PEN NEEDLE) 31 gauge x 5/16" Use one needle per dose. One per day. DXE11.9 Insulin Yes albuterol HFA (VENTOLIN HFA) 90 mcg/actuation inhaler Inhale 2 Puffs as instructed every 6 hours asneeded for wheezing/shortness of breath. nitroglycerin sublingual (NITROQUICK) [...] - 4.00 k/uL 0.60 (L) 0.79 (L) Scioto% % 12.7 6.7 Abs Scioto <0.87 k/uL 0.72 0.60 Eosin% % 4.1 [...] R62.7 He was seen in observation at [facility]. Advised intermediate facility at discharge however declined and discharged to home with home health care. Presents in clinic unable to stand without assistance and difficulty staying awake. He is hypotensive. 4. Type 2 diabetes mellitus with other specified complication, with long-term current use of insulin (HCC) - ICD9: 250.80, V58.67, ICD10: E11.69, Z79.4 Has had improved control of late. 5. Paroxysmal atrial fibrillation (HCC) - ICD9: 427.31, ICD10: I48.0 Followed by [facility]. On oral anticoagulation. 6. Chronic diastolic CHF (congestive heart failure) (HCC) - ICD9: 428.32, 428.0, ICD10: I50.32 Followed by [facility], recent up titration of carvedilol [...] Level: 4 - Moderate documented in this encounterEast [facility] City Hospital06-06-[address] Turner [facility] April 12, 2023 10:08am Note Date/Time April 12, 2023 10:05 am [facility] Medical Records Department [address] [place] [address] Discharge Summary 04/12/23 0959 MR#: [id number] Acct: [id number] Name: STEPH BAUMANN Rep #:[id number] : 1950 72 From: Fior Turner MD PCP: Dr. Manuel Beebe MD Status:AD M MARY Location: MS3 LI702-1 Providers Date of Admission: 04/10/23 Date of Discharge: 04/12/23 Primary Care Physician: Dr. Manuel Beebe MD Reason For Visit: ADULT FAILURE TO THRIVE Diagnosis Discharge Diagnosis (1) Weakness: Status: Acute Code(s): R53.1 - Weakness (2) Adult failure to thrive: Status: Acute Code(s): R62.7 - Adult failure to thrive Plan #Adult failure to thrive * Patient has been getting weaker and more debilitated at home. PT OT consulted. Fall precautions. * #Nonischemic cardiomyopathy * Has known EF of 20 to 25%. He is s/p placement of a biventricular ICD * And diuretics namely spironolactone and Bumex. * #Paroxysmal A-fib: On carvedilol. Rate controlled. On Eliquis. 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 PT OT on board. #Hypertension: #Type 2 diabetes mellitus: On Lantus. Insulin sliding scale. Accu-Cheks ACHS. #GERD: On PPI #Parkinson's disease: On carbidopa and levodopa #Obstructive sleep apnea: On CPAP nightly #Seizure disorder: On topiramate #History of prostate cancer wants to dispose radiation DVT prophylaxis: Already on Eliquis Medications at Discharge Home Medications insulin glargine 100 unit/mL (3 mL) subcutaneous pen 27 unit SQ QHS diabetes 10/30/18 bicalutamide 50 mg tablet (Casodex) 50 mg PO DAILY prostate 12/10/21 loratadine 10 mg capsule 10 mg PO DAILY PRN allergies 12/10/21 multivitamin 1 tab PO DAILY supplement 02/19/22 bumetanide 1 mg tablet 1 tab PO TID water pill 04/25/22 apixaban 5 mg tablet (Eliquis) See Rx Instructions .Route .COMPLEX #60 TABLETS 05/19/22 lisinopril 40 mg tablet 40 mg PO DAILY 09/09/22 omeprazole 20 mg capsule,delayed release 20 mg PO BID 09/09/22 baclofen 20 mg tablet 20 mg PO TID #90 tabs 12/23/22 carvedilol 6.25 mg tablet 6.25 mg PO BID This is a dose increase #180 tabs 03/10/23 albuterol 90 mcg/actuation aerosol inhaler 180 mcg inhalation Q6H PRN Shortness Of Breath 04/11/23 budesonide-formoterol HFA 80 mcg-4.5 mcg/actuation aerosol inhaler 2 puff inhalation BID 04/11/23 cyanocobalamin (vitamin B-12) 1,000 mcg tablet 1,000 mcg PO DAILY 04/11/23 fluticasone furoate 100 mcg-vilanterol 25 mcg/dose inhalation powder 1 ea inhalation DAILY 04/11/23 tamsulosin 0.4 mg capsule 0.4 mg PO QHS 04/11/23 Hospital Course Operations None Summary of Care Provided Minutes Spent on Discharge: 47 Hospital Course: Patient is a 72-year-old male with a past medical history as outlined which includes A-fib and nonischemic cardiomyopathy with EF of 20 to 25%. He was brought into the ED after he activated his medic alert. Patient been getting progressively weak and also felt dehydrated. When the EMS came he was thought kate confused. CT of the brain done showed no acute pathology. He was admitted and managed for failure to thrive with debility and weakness. PT OT worked withpatient. His hospital course was not further complicated. He did work with physical therapy and he was recommended to go to acute rehab facility. Patient and his girlfriend however were reluctant for him to go to acute rehab facility and wanted to do him to go home with home health care set up. Patient was discharged home on 04/12/2023. He is to follow-up with his primary care doctor within 1 to 2 weeks. Patient seen and examined prior to discharge. He felt well. He had an uneventful night and review of systems otherwise negative. Labs and vitals reviewed. Home medication reviewed and reconciled. Physical Exam Const alert, oriented x3 and no apparent distress General Appearance: cooperative and comfortable HEENT normocephalic, head/scalp atraumatic, hearing grossly normal bilaterally, moist oral mucous membranes and oropharynx normal Mouth: oral and palatal mucosa normal Eyes PERRL and EOMs intact bilaterally Neck no lymphadenopathy, supple and no JVD General: trachea midline Lymph Lymphatic: no lymphadenopathy noted and no lymphedema noted Resp normal respiratory effort, normal air movement and clear to auscultation bilaterally Cardio regular rate, regular rhythm, S1 normal heart sound, S2 normal heart sound and no murmurs GI normal to inspection, nondistended, normoactive bowel sounds, soft to palpation,non-tender and non-distended Extremity normal to inspection, full ROM, normal capillary refill, no clubbing, cyanosis or edema and no calf tenderness Skin no rashes or lesions noted and no wounds General Skin Exam: no breakdown and turgor normal Neuro oriented x3, CN's II-XII intact bilaterally, moves all extremities, no focal motor deficits, no sensory deficits noted and deep tendon reflexes 2+ bilaterally Neuro Narrative: frail Sensorium / Orientation: awake Motor Exam: strength 5/5 throughout Psych thought process normal, cooperative and affect normal Appearance: appropriate Weight / BMI Weight Weight: 177 lb 7.554 oz Body Mass Index (BMI) 26.2 ABG / Lab / Microbiology Data Result Diagrams: 04/12/23 05:50 04/12/23 05:50 Laboratory: Laboratory Results - last 24 hr 04/11/23 11:06: POC Glucose 274 H 04/11/23 16:12: POC Glucose 133 H 04/11/23 20:40: POC Glucose 178 H 04/12/23 05:15: POC Glucose 162 H 04/12/23 05:50: WBC 5.5, RBC 3.93 L, Hgb 12.7 L, Hct 38.2 L, MCV 97.2 H, MCH 32.3 H, MCHC 33.2, RDW Std Deviation 48.8 H, RDW Coeff of Yonathan 13.7, Plt Count 118 L, MPV 11.0, Immature Gran % (Auto) 0.900, Neut % (Auto) 78.1 H, Lymph % (Auto) 8.4 L, Sci[place] % (Auto) 7.1, Eos % (Auto) 5.1 H, Baso % (Auto) 0.4, AbsoluteNeuts (auto) 4.3, Absolute Lymphs (auto) 0.46 L, Nucleated RBC % 0, DifferentialComment COMMENT 04/12/23 05:50: Sodium 140, Potassium 3.5, Chloride 106, Carbon Dioxide 28.0, Anion Gap 6, BUN 26 H, Creatinine 1.25, Estim Creat Clear Calc 54.99, Est GFR (MDRD) Af Amer 73, Est GFR (MDRD) Non-Af 61, BUN/Creatinine Ratio 20.8 H, Qscudce261 H, Calcium 9.1 D/C Instructions Discharge Diet: Low fat / Low cholesterol Discharge Activity: Return to Normal Activity Weight Bearing Status: Weight bearing as tolerated Call your doctor if you observe: Fever of 101 or Higher, Shortness of breath, Dizziness, Swelling in the ankles and Chest pain Meaningful Use Info Meaningful Use Diagnoses (Choose all that apply): None applicable Discharge Plan Admission Admit Date/Time: 04/10/23 16:14 Primary Reason for Your Visit: generalised weakness and debility Attending Provider: Fior Turner Primary Care Provider: Manuel Beebe Consulting Providers: Michael Jacobs Discharge Orders/Prescriptions Prescriptions: Continued bicalutamide [Casodex] 50 mg tablet 50 mg PO DAILY loratadine 10 mg capsule 10 mg PO DAILY PRN (Reason: allergies) omeprazole 20 mg capsule,delayed release(DR/EC) 20 mg PO BID lisinopril 40 mg tablet 40 mg PO DAILY baclofen 20 mg tablet 20 mg PO TID Qty: 90 5RF insulin glargine 100 UNIT/ML insulin pen 27 unit SQ QHS multivitamin Tablet 1 tab PO DAILY bumetanide 1 mg tablet 1 tab PO TID Hold Instructions: Resume on 04/29/22. Label Comments: TAKE 3 TABLETS BY MOUTH ONCE DAILY albuterol 90 mcg/actuation Aerosol 180 mcg INHALATION Q6H PRN (Reason: Shortness Of Breath) Rx Instructions: (2 puffs) budesonide-formoterol 80-4.5 mcg/actuation Hfa Aerosol Inhaler 2 puff INHALATION BID cyanocobalamin (vitamin B-12) 1,000 mcg Tablet 1,000 mcg PO DAILY fluticasone furoate-vilanterol 100-25 mcg/dose Blister With Device 1 ea INHALATION DAILY tamsulosin 0.4 mg Capsule 0.4 mg PO QHS Eliquis 5 mg tablet See Rx Instructions .ROUTE .COMPLEX Qty: 60 11RF Dose Instruction: TAKE ONE (1) TABLET BY MOUTH TWICE DAILY Rx Instructions: TAKE ONE (1) TABLET BY MOUTH TWICE DAILY carvedilol 6.25 mg tablet 6.25 mg PO BID Qty: 180 3RF Rx Instructions: must administer with a meal/food Referrals / Follow Up: Manuel Beebe MD [Primary Care Provider] - Within 1 Week Disposition Disposition (needs filled in before D/C Order can be placed): Home Health Service Charges/Coding Visit Charges Inpatient E&M: 70802 Disch Hosp >30min 04/12/23 1008 <Electronically signed by Fior Turner MD> Cosigner Signature (if applicable): CC: Dr. Manuel Beebe MD; Dr. Fior Turner MD~ Signed [facility] Work Phone: 1(275) 408-242506-06-2023 Progress note Author [facility] April 12, 2023 7:58am Note Date/Time April 11, 2023 12:53 pm [facility] Medical Records Department [address] [place] [address] Progress Note 04/11/23 1247 MR#: [id number] Acct: [id number] Name: STEPH BAUMANN Rep #:[id number] : 1950 72 From: Fior Turner MD PCP: Dr. Manuel Beebe MD Status:AD M [facility] Location: [place] [address] Subjective Subjective Patient seen and examined. He was comfortably eating breakfast. He had no complaints and had an uneventful night. Review of systems otherwise negative. He has remained hemodynamically stable. Objective Data Objective Data Vital Signs: Vital Signs Temp Pulse Resp BP Pulse Ox O2 Del Method 97.8 F 69 16 136/88 H 99 Room Air 04/11/23 07:35 04/11/23 07:35 04/11/23 07:35 04/11/23 07:35 04/11/23 07:35 04/11/23 07:35 Oxygen Delivery Method Room Air Weight: 177 lb 14.609 oz Body Mass Index (BMI) 26.3 Intake & Output: Intake and Output for Last 24 Hours 04/09/23 04/10/23 04/11/23 23:59 23:59 23:59 Intake Total 1000 / 1000 Output Total 200 / 200 Balance 800 / 800 Lab / Micro Data Result Diagrams: 04/11/23 05:45 04/11/23 05:45 Labs: Laboratory Results - last 24 hr 04/10/23 12:30: WBC 9.3, RBC 4.14 L, Hgb 13.3, Hct 40.0, MCV 96.6 H, MCH 32.1 H,MCHC 33.3, RDW Std Deviation 48.4 H, RDW Coeff of Yonathan 13.8, Plt Count 155, MPV 11.2, Immature Gran % (Auto) 0.600, Neut % (Auto) 85.5 H, Lymph % (Auto) 5.4 L, [place] % (Auto) 6.7, Eos % (Auto) 1.4, Baso % (Auto) 0.4, Absolute Neuts (auto) 8.0 H, Absolute Lymphs (auto) 0.50 L, Nucleated RBC % 0, Differential Comment COMMENT 04/10/23 12:30: Sodium 139, Potassium 4.0, Chloride 104, Carbon Dioxide 28.0, Anion Gap 7, BUN 29 H, Creatinine 1.39 H, Estim Creat Clear Calc 49.45, Est GFR (MDRD) Af Amer 65, Est GFR (MDRD) Non-Af 54 L, BUN/Creatinine Ratio 20.9 H, Glucose 216 H, Calcium 9.5, Total Bilirubin 0.90, AST 16, ALT 12 L, Alkaline Phosphatase 133 H, Total Protein 8.0, Albumin 4.0, Globulin 4.0, Albumin/Globulin Ratio 1.0 04/10/23 15:12: Urine Color Yellow, Urine Clarity Clear, Urine pH 6.0, Ur Specific Shanks 1.015, Urine Protein Negative, Urine Glucose (UA) Normal, UrineKetones Negative, Urine Occult Blood Negative, Urine Nitrite Negative, Urine Bilirubin Negative, Urine Urobilinogen Normal, Ur Leukocyte Esterase Negative, Urine RBC 0 SEEN, Urine WBC 0 SEEN, Ur Squamous Epith Cells 0 SEEN, Urine Bacteria 0 SEEN, Urine Mucus 0 SEEN 04/10/23 20:24: POC Glucose 112 H 04/11/23 05:45: WBC 6.0, RBC 3.84 L, Hgb 12.3 L, Hct 37.8 L, MCV 98.4 H, MCH 32.0, MCHC 32.5, RDW Std Deviation 49.5 H, RDW Coeff of Yonathan 13.9, Plt Count 111 L, MPV 11.1, Immature Gran % (Auto) 0.800, Neut % (Auto) 82.2 H, Lymph % (Auto) 6.6 L, [place] % (Auto) 6.3, Eos % (Auto) 3.6, Baso % (Auto) 0.5, Absolute Neuts (auto) 5.0, Absolute Lymphs (auto) 0.40 L, Nucleated RBC % 0, Differential Comment SCANNED 04/11/23 05:45: Sodium 139, Potassium 3.7, Chloride 108 H, Carbon Dioxide 27.0, Anion Gap 4 L, BUN 23 H, Creatinine 1.18, Estim Creat Clear Calc 58.25, Est GFR (MDRD) Af Amer 78, Est GFR (MDRD) Non-Af 65, BUN/Creatinine Ratio 19.5, Glucose 146 H, Calcium 9.0, Phosphorus 3.1, Magnesium 1.9 04/11/23 06:12: POC Glucose 147 H 04/11/23 11:06: POC Glucose 274 H Radiography Diagnostic Testing: Radiology Impression Brain CT 04/10/23 13:18 IMPRESSION: 1. No CT evidence of intracranial bleeding, acute ischemic infarct or acute intracranial abnormality. 2. Large old cortical-based cystic infarctions involving the posterior right temporal lobe, right central lobe and the posterior aspect of the right superior frontal gyrus. 3. Small old ischemic infarct with focal atrophy and encephalomalacia in the left precentral gyrus. 4. Old lacunar ischemic infarct in the left thalamus. 5. No interval change when compared to 07/21/2022. Electronically Signed: Victorino Darby MD at 13:54 EDT Reading Location ID and State: [facility] / [place] , Service support , Chest X-Ray 04/10/23 13:26 IMPRESSION: 1. No acute findings in the chest. 2. No interval change when compared to 06/07/2022. Electronically Signed: Victorino Darby MD at 13:55 EDT , Physical Exam Const alert, oriented x3 and no apparent distress General Appearance: cooperative HEENT normocephalic, head/scalp atraumatic, moist oral mucous membranes and oropharynxnormal Eyes PERRL and EOMs intact bilaterally Neck no lymphadenopathy, supple and no JVD General: trachea midline Lymph Lymphatic: no lymphadenopathy noted and no lymphedema noted Resp normal respiratory effort, normal air movement and clear to auscultation bilaterally Cardio regular rate, regular rhythm, S1 normal heart sound, S2 normal heart sound and no murmurs GI normal to inspection, nondistended, normoactive bowel sounds, soft to palpation,non-tender and non-distended Extremity normal capillary refill, no clubbing, cyanosis or edema and no calf tenderness Skin General Skin Exam: no breakdown and turgor normal Neuro CN's II-XII intact bilaterally, no focal motor deficits, no sensory deficits noted and deep tendon reflexes 2+ bilaterally Motor Exam: strength 5/5 throughout Psych thought process normal, cooperative and affect normal Appearance: appropriate Assessment & Plan Assessment/Plan (1) Weakness: (2) Adult failure to thrive: PLAN: Plan #Adult failure to thrive * Patient has been getting weaker and more debilitated at home. PT OT consulted. Fall precautions. * #Nonischemic cardiomyopathy * Has known EF of 20 to 25%. He is s/p placement of a biventricular ICD * And diuretics namely spironolactone and Bumex. * #Paroxysmal A-fib: On carvedilol. Rate controlled. On Eliquis. 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 PT OT on board. #Hypertension: #Type 2 diabetes mellitus: On Lantus. Insulin sliding scale. Accu-Cheks ACHS. #GERD: On PPI #Parkinson's disease: On carbidopa and levodopa #Obstructive sleep apnea: On CPAP nightly #Seizure disorder: On topiramate #History of prostate cancer wants to dispose radiation DVT prophylaxis: Already on Eliquis Charges/Coding Visit Charges Inpatient E&M: 70246 Subs Hosp L2 04/12/23 5529 <Electronically signed by Fior Turner MD> Fior Turner MD Cosigner Signature (if applicable): CC: ~ Signed [facility] Work Phone: 1(652) 498-589406-05-2023 Miscellaneous Notes* Telephone Encounter - Maribell E Brad [employer]ENT - 04/11/2023 5:50 PM EDT Message left for Bob Ferraro () to call to update concerning the letter being in Medical records to be picked up. Maribell Salinas LPN * Telephone Encounter - Manuel Beebe MD - 04/09/2023 2:43 PM EDT Printed letter--see if adequate * Telephone Encounter - Mckenna Deluna Pss - 04/07/2023 3:38 PM EDT Steph Baumann is calling Manuel Beebe MD today to request Patient Request (Patient is going to the 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 )please advise [phone]. Patient has been identified by name and birthdate. Duration of symptoms: N/A Person calling: caregiver: bob ferraro Call patient at: on cell [phone] (home) [phone] (cell) Was an appointment scheduled: No Closing statement: Results or non-symptom based questions: Thank you for calling [facility], your call will be returned within the next business day. Mckenna Deluna Pss documented in this encounterEast [facility] City Hospital06-05-2023 Miscellaneous Notes* Telephone Encounter - Roxanne Gupta RN - 04/11/2023 8:32 AM EDT Faxed current med list to [facility] med/surg per request. Fax # [phone]. Confirmation received. documented in this encounterEast [facility] City Hospital06-04-2023 History and physical note Author Dr. Jacobs [facility] April 10, 2023 5:01pm Note Date/Time April 10, 2023 4:24p [facility] Medical Records Department [address] [place] [address] H&P Exam - Hospitalist 04/10/23 1622 MR#: [id number] Acct: [id number] Name: STEPH BAUMANN Rep #:[id number] : 1950 72 From: Michael Jacobs MD PCP: Dr. Manuel Beebe MD Status:AD M [facility] [place] [facility] [place]-[place] HPI - General General Date of Admission: 04/10/23 Date of Service: 04/10/23 Chief Complaint: Generalized weakness HPI Narrative STEPH BAUMANN, is a 72 M with multiple comorbidities including previous, paroxysmal A-fib, nonischemic cardiomyopathy with ejection fraction of 20 to 25%who was brought to the emergency department after he activated his medic Alert.. Patient has been experiencing progressive generalized weakness. He also felt he was dehydrated. EMS reported patient being somewhat confused prior to patient being brought to the emergency department. In the emergency department underwent subsequent evaluation including head CT which is unremarkable. Decision was however made to admit patient as a case of adult failure to thrive sepsis caretakers were apparently out of town. [facility] Medical History Acute and chronic respiratory failure with hypoxia Acute heart failure with reduced ejection fraction and diastolic dysfunction Ambulates with cane Anticoagulant long-term use Ascites Asthma Atherosclerosis of coronary artery of [place] heart without angina pectoris Atrial fibrillation and flutter Back pain Benign brain tumor Cholelithiasis Chronic combined systolic and diastolic CHF (congestive heart failure) Chronic kidney disease (CKD) Cirrhosis of liver Cirrhosis of liver with ascites CPAP (continuous positive airway pressure) dependence Diabetes Diabetes mellitus, type II Essential (primary) hypertension Former smoker History of atrial fibrillation History of CVA (cerebrovascular accident) History of ulceration Hyperlipidemia Injury of back Insulin dependent diabetes mellitus Longstanding persistent atrial fibrillation Non-rheumatic tricuspid valve insufficiency Nonischemic cardiomyopathy NSTEMI (non-ST elevated myocardial infarction) (10/09/19) ALBINO (obstructive sleep apnea) 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 Right inguinal hernia Right ventricular systolic dysfunction Secondary pulmonary arterial hypertension Seizure disorder Sleep apnea Stasis edema of both lower extremities Stroke/cerebrovascular accident Thyroid disease Wears glasses Home Medications insulin glargine 100 unit/mL (3 mL) subcutaneous pen 27 unit SQ QHS diabetes 10/30/18 [History Last Taken 01/30/19] bicalutamide 50 mg tablet (Casodex) 50 mg PO DAILY prostate 12/10/21 [History Last Taken 02/18/22 10:32] loratadine 10 mg capsule 10 mg PO DAILY PRN allergies 12/10/21 [History Last Taken 02/18/22 10:32] cyanocobalamin (vitamin B-12) 250 mcg tablet (Vitamin B-12) 250 mcg PO DAILY Supplement 02/19/22 [History Last Taken 02/18/22 10:32] multivitamin 1 tab PO DAILY supplement 02/19/22 [History Last Taken 02/18/22 10:31] tramadol 50 mg tablet 50 mg PO Q6H PRN PRN Pain Score 1-10 7 days #28 tabs 04/01/22 [Rx Last Taken Unknown] bumetanide 1 mg tablet 3 tab PO DAILY water pill 04/25/22 [History Last Taken Unknown] calcium 300 mg chewable tablet 300 mg PO DAILY supplement 04/25/22 [History Last Taken Unknown] polysaccharide iron complex 150 mg iron capsule (Ferrex) 150 mg PO DAILY supplement 04/25/22 [History Last Taken Unknown] spironolactone 25 mg tablet 1 tab PO DAILY waterpill 04/25/22 [History Last Taken Unknown] apixaban 5 mg tablet (Eliquis) See Rx Instructions .Route .COMPLEX #60 TABLETS 05/19/22 [Rx Last Taken Unknown] lisinopril 40 mg tablet 40 mg PO DAILY 09/09/22 [History Last Taken Unknown] omeprazole 20 mg capsule,delayed release 20 mg PO DAILY 09/09/22 [History Last Taken Unknown] topiramate 25 mg tablet 25 mg PO BID 09/09/22 [History Last Taken Unknown] baclofen 20 mg tablet 20 mg PO TID #90 tabs 12/23/22 [Rx Last Taken Unknown] carbidopa 25 mg-levodopa 100 mg tablet 1 tab PO TID #90 tabs 12/23/22 [Rx Last Taken Unknown] carvedilol 6.25 mg tablet 6.25 mg PO BID This is a dose increase #180 tabs 03/10/23 [Rx Last Taken Unknown] Allergy/AdvReac Type Severity Reaction Status Date / Time acetaminophen AdvReac Other Verified 01/06/23 13:44 oxycodone AdvReac hallucinati Verified 01/06/23 13:44 ons Family History Daughter Heart disease valve replacement/chf Diabetes Mother Thyroid disorder Surgical History Biventricular ICD (implantable cardioverter-defibrillator) in place (10/12/19) H/O excision of tumor of brain meninges (2011) History of arthroplasty of right hip History of cardiac catheterization History of cardioversion (05/05/20) History of left heart catheterization (08/31/19) History of percutaneous coronary intervention (10/10/19) History of right and left heart catheterization History of right hip hemiarthroplasty History of tonsillectomy Social History household members: none Smoking Status: Former smoker how long ago did patient quit smokin years second hand exposure: No alcohol intake: never substance use type: does not use regla/yazidism: None seatbelt use: always ROS ROS Narrative GENERAL: denies fever, chills, night sweats, HEENT: denies headache, sinus congestion, RESPIRATORY: denies cough, sputum production, CARDIAC: denies chest pain, palpitations, orthopnea, PND GASTROINTESTINAL: denies abdominal pain, nausea, vomiting, melena, GENITOURINARY: denies dysuria, urgency, frequency, heamaturia EXTREMITY: denies swelling MUSCULOSKELETAL: denies current joint pain or tenderness NEUROLOGIC: denies focal numbness, weakness, tingling HEMATOLOGIC: denies easy bruising and/or hemorrhage INTEGUMENT: denies rashes PSYCHIATRIC: denies suicidal or homicidal ideation Vital Signs Vital Signs Vital Signs: 04/10/23 12:46 04/10/23 14:43 Temperature 96.9 F L 97.1 F L Temperature Source Temporal Temporal Pulse Rate 71 74 Respiratory Rate 18 18 Blood Pressure 118/80 127/85 H Blood Pressure Mean 92 99 Pulse Ox 97 99 Oxygen Delivery Method Room Air Room Air Weight Weight: 87.9 kg Body Mass Index (BMI) 28.6 Results Lab / Micro Data Result Diagrams: 04/10/23 12:30 04/10/23 12:30 Labs: Laboratory Results - last 24 hr 04/10/23 12:30: WBC 9.3, RBC 4.14 L, Hgb 13.3, Hct 40.0, MCV 96.6 H, MCH 32.1 H,MCHC 33.3, RDW Std Deviation 48.4 H, RDW Coeff of Yonathan 13.8, Plt Count 155, MPV 11.2, Immature Gran % (Auto) 0.600, Neut % (Auto) 85.5 H, Lymph % (Auto) 5.4 L, [place] % (Auto) 6.7, Eos % (Auto) 1.4, Baso % (Auto) 0.4, Absolute Neuts (auto) 8.0 H, Absolute Lymphs (auto) 0.50 L, Nucleated RBC % 0, Differential Comment COMMENT 04/10/23 12:30: Sodium 139, Potassium 4.0, Chloride 104, Carbon Dioxide 28.0, Anion Gap 7, BUN 29 H, Creatinine 1.39 H, Estim Creat Clear Calc 49.45, Est GFR (MDRD) Af Amer 65, Est GFR (MDRD) Non-Af 54 L, BUN/Creatinine Ratio 20.9 H, Glucose 216 H, Calcium 9.5, Total Bilirubin 0.90, AST 16, ALT 12 L, Alkaline Phosphatase 133 H, Total Protein 8.0, Albumin 4.0, Globulin 4.0, Albumin/Globulin Ratio 1.0 04/10/23 15:12: Urine Color Yellow, Urine Clarity Clear, Urine pH 6.0, Ur Specific Shanks 1.015, Urine Protein Negative, Urine Glucose (UA) Normal, UrineKetones Negative, Urine Occult Blood Negative, Urine Nitrite Negative, Urine Bilirubin Negative, Urine Urobilinogen Normal, Ur Leukocyte Esterase Negative, Urine RBC 0 SEEN, Urine WBC 0 SEEN, Ur Squamous Epith Cells 0 SEEN, Urine Bacteria 0 SEEN, Urine Mucus 0 SEEN Radiology Impression Brain CT 04/10/23 13:18 IMPRESSION: 1. No CT evidence of intracranial bleeding, acute ischemic infarct or acute intracranial abnormality. 2. Large old cortical-based cystic infarctions involving the posterior right temporal lobe, right central lobe and the posterior aspect of the right superior frontal gyrus. 3. Small old ischemic infarct with focal atrophy and encephalomalacia in the left precentral gyrus. 4. Old lacunar ischemic infarct in the left thalamus. 5. No interval change when compared to 07/21/2022. Electronically Signed: Victorino Darby MD at 13:54 EDT , Chest X-Ray 04/10/23 13:26 IMPRESSION: 1. No acute findings in the chest. 2. No interval change when compared to 06/07/2022. Electronically Signed: Victorino Darby MD at 13:55 EDT , Assessment & Plan Assessment/Plan (1) Adult failure to thrive: PLAN: Plan Patient is a 72-year-old gentleman with multiple comorbidities admitted with progressive generalized weakness 1. Adult failure to thrive ? Requested for PT OT eval and social service coordinator to assist with discharge planning 2. Nonischemic cardiomyopathy -with a known ejection fraction of 20 to 25% with a placement of a BiV ICD.? Patient is on diuretic therapy with spironolactone and bumetanide and plan is toresume once home meds have been reconciled by pharmacy 3. Atrial tachyarrhythmia ? With history of cardioversion in February 2020 4. Paroxysmal A-fib ? Rate controlled on carvedilol and on systemic anticoagulation with apixaban 5. Chronic kidney disease stage III ? Kidney function at baseline 6. History of recurrent CVA ? With residual left-sided weakness patient at baseline 7. Hypertension - Blood pressure controlled, home medications continued with dose adjustment as needed 8. Diabetes mellitus type 2 ? Patient is on long-acting insulin did continue also placed on Accu-Cheks before meals and at bedtime with sliding scale coverage GERD ? Patient is on PPI continued 9. Parkinson's disease ? Patient is on carbidopa levodopa did continue 10. Obstructive sleep apnea -on CPAP at night 11. Seizure disorder ? Patient on topiramate did continue 12. History of prostate CA ? Patient previously undergone radiation therapy 13. DVT prophylaxis ? Patient is on apixaban and continue Time spent in the patient's overall evaluation,decision-making process, review of diagnostic data, adjustment of management, discussion with other providers, nursing nursing and ancillary staff involved in patient's care documentation, 77 Minutes Advance planning; did discuss with the patient and family regarding advanced directives as well as CODE STATUS. Did explain the various scenarios involved (FULL CODE, DNR CCA, DNR CCA with no intubation, and DNR CC and what each meant) patient elected to remain full code with CPR and intubation if needed. Order was placed. Time spent on discussion 18 minutes. Charges/Coding Visit Charges Inpatient E&M: 01272 Init Hosp L3 Procedures Hospitalists Procedures: 70990 Advncd Care Plan 30 Min 04/10/23 1701 <Electronically signed by Michael Jacobs MD> Cosigner Signature (if applicable): CC: Dr. Michael Jacobs MD; Dr. Manuel Beebe MD~ Signed [facility] Work Phone: [phone]) 588-370806-04-[address] Badillo [facility] April 10, 2023 4:17pm Note Date/Time April 10, 2023 1:23p [facility] Medical Records Department [address] [place] [address] Emergency Department Summary 04/10/23 MR#: [id number] Acct: [id number] Name: STEPH BAUMANN Rep #:[id number] : 1950 72 From: Victorino Badillo MD PCP: Dr. Manuel Beebe MD Status:RE G ER Location: ED ADDENDUM by Dr. Victorino Badillo MD on 04/10/23 at 1617 Initially, the plan was to discharge the patient home. However, RN stated that patient appeared more confused to him. Earlier, patient stated that he lives alone, and only gets help once a week. Power of criminal defense attorney had been called by RN who is out of town until Tuesday. For safety of the patient as I am unsure as to how he would perform his activities of daily living given an acute mental status change, weakness, and confusion, I discussed patient with Dr. Jacobs for assignment to observation on the medical floor for failure to thrive. Patient is in stable condition. 04/10/237<Electronically signed by Victorino Badillo MD> Cosigner Signature (if applicable): cc: Dr. Manuel Beebe MD ~* Signed HPI History of Present Illness Chief Complaint: Weakness Narrative Narrative: 72-year-old male past medical history of multiple medical problems including stroke, debility, chronic left sided weakness presents with right-sided weaknessthat has had for the last week. He states he feels dehydrated. He had vomitingwithin the last week but denies any fever or chills, no diarrhea, no abdominal pain. He presents via EMS wanting to make sure that he is not dehydrated. He denies any exacerbating or alleviating factors. He does have history of a pacemaker as well. [facility] Medical History Acute and chronic respiratory failure with hypoxia Acute heart failure with reduced ejection fraction and diastolic dysfunction Ambulates with cane Anticoagulant long-term use Ascites Asthma Atherosclerosis of coronary artery of [place] heart without angina pectoris Atrial fibrillation and flutter Back pain Benign brain tumor Cholelithiasis Chronic combined systolic and diastolic CHF (congestive heart failure) Chronic kidney disease (CKD) Cirrhosis of liver Cirrhosis of liver with ascites CPAP (continuous positive airway pressure) dependence Diabetes Diabetes mellitus, type II Essential (primary) hypertension Former smoker History of atrial fibrillation History of CVA (cerebrovascular accident) History of ulceration Hyperlipidemia Injury of back Insulin dependent diabetes mellitus Longstanding persistent atrial fibrillation Non-rheumatic tricuspid valve insufficiency Nonischemic cardiomyopathy NSTEMI (non-ST elevated myocardial infarction) (10/09/19) ALBINO (obstructive sleep apnea) 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 Right inguinal hernia Right ventricular systolic dysfunction Secondary pulmonary arterial hypertension Seizure disorder Sleep apnea Stasis edema of both lower extremities Stroke/cerebrovascular accident Thyroid disease Wears glasses Home Medications insulin glargine 100 unit/mL (3 mL) subcutaneous pen 27 unit SQ QHS diabetes 10/30/18 [History Last Taken 01/30/19] bicalutamide 50 mg tablet (Casodex) 50 mg PO DAILY prostate 12/10/21 [History Last Taken 02/18/22 10:32] loratadine 10 mg capsule 10 mg PO DAILY PRN allergies 12/10/21 [History Last Taken 02/18/22 10:32] cyanocobalamin (vitamin B-12) 250 mcg tablet (Vitamin B-12) 250 mcg PO DAILY Supplement 02/19/22 [History Last Taken 02/18/22 10:32] multivitamin 1 tab PO DAILY supplement 02/19/22 [History Last Taken 02/18/22 10:31] tramadol 50 mg tablet 50 mg PO Q6H PRN PRN Pain Score 1-10 7 days #28 tabs 04/01/22 [Rx Last Taken Unknown] bumetanide 1 mg tablet 3 tab PO DAILY water pill 04/25/22 [History Last Taken Unknown] calcium 300 mg chewable tablet 300 mg PO DAILY supplement 04/25/22 [History Last Taken Unknown] polysaccharide iron complex 150 mg iron capsule (Ferrex) 150 mg PO DAILY supplement 04/25/22 [History Last Taken Unknown] spironolactone 25 mg tablet 1 tab PO DAILY waterpill 04/25/22 [History Last Taken Unknown] apixaban 5 mg tablet (Eliquis) See Rx Instructions .Route .COMPLEX #60 TABLETS 05/19/22 [Rx Last Taken Unknown] lisinopril 40 mg tablet 40 mg PO DAILY 09/09/22 [History Last Taken Unknown] omeprazole 20 mg capsule,delayed release 20 mg PO DAILY 09/09/22 [History Last Taken Unknown] topiramate 25 mg tablet 25 mg PO BID 09/09/22 [History Last Taken Unknown] baclofen 20 mg tablet 20 mg PO TID #90 tabs 12/23/22 [Rx Last Taken Unknown] carbidopa 25 mg-levodopa 100 mg tablet 1 tab PO TID #90 tabs 12/23/22 [Rx Last Taken Unknown] carvedilol 6.25 mg tablet 6.25 mg PO BID This is a dose increase #180 tabs 03/10/23 [Rx Last Taken Unknown] Allergy/AdvReac Type Severity Reaction Status Date / Time acetaminophen AdvReac Other Verified 01/06/23 13:44 oxycodone AdvReac hallucinati Verified 01/06/23 13:44 ons Family History Daughter Heart disease valve replacement/chf Diabetes Mother Thyroid disorder Surgical History Biventricular ICD (implantable cardioverter-defibrillator) in place (10/12/19) H/O excision of tumor of brain meninges (2011) History of arthroplasty of right hip History of cardiac catheterization History of cardioversion (05/05/20) History of left heart catheterization (08/31/19) History of percutaneous coronary intervention (10/10/19) History of right and left heart catheterization History of right hip hemiarthroplasty History of tonsillectomy Social History household members: none Smoking Status: Former smoker how long ago did patient quit smokin years second hand exposure: No alcohol intake: never substance use type: does not use regla/yazidism: None seatbelt use: always ROS ROS ED ROS Narrative Constitutional: No fever, no chills. Generalized to right-sided weakness. HEENT: No sore throat. No neck pain. No loss of vision. No rhinorrhea. Cardiovascular: No chest pain. No palpitations. No pedal edema. Respiratory: No cough, no shortness of breath. Abdominal: No abdominal pain. No nausea. No vomiting. Genitourinary: No dysuria. No hematuria. Musculoskeletal: No myalgias. No arthralgias. Neurologic: No headaches. No dizziness. No lightheadedness. History of strokewith chronic weakness. Skin: No rash. No change in color. Psychiatric: No depression. No anxiety. EXAM Physical Exam Narrative Exam Narrative: Afebrile. Vital signs noted. HEENT: Normocephalic. Atraumatic. PERRL, EOMI. Neck soft and supple. No pointtenderness or step off. Cardiovascular: Regular rate and rhythm. No murmurs, rubs, or gallops appreciated. Respiratory: No tachypnea. Lungs clear to auscultation bilaterally. Gastrointestinal: Abdomen soft, nontender, with normoactive bowel sounds. No rebound or guarding. Neurological: Awake. Alert. Limited range of motion of bilateral upper and lower extremities, but able to move bilateral hands and feet/toes. Skin: No rash. Normal color. No pallor. Musculoskeletal: No pedal edema. Full range of motion extremities. Const Vital Signs: 04/10/23 12:46 04/10/23 14:43 Temperature 96.9 F L 97.1 F L Temperature Source Temporal Temporal Pulse Rate 71 74 Respiratory Rate 18 18 Blood Pressure 118/80 127/85 H Blood Pressure Mean 92 99 Pulse Ox 97 99 Oxygen Delivery Method Room Air Room Air MDM MDM MDM Narrative Medical decision making narrative: I reviewed the patient's EMR. He has history of stroke and Parkinson's along with seizure disorder, chronic cirrhosis. Comprehensive work-up will be pursuedto look for signs of infection including urinary tract infection and pneumonia, however he denies any fevers or chills, cough or shortness of breath. He deniesany dysuria or hematuria. I will check his CBC and CMP to look for anemia to see if he is indeed, dehydrated. He will be bolused normal saline 1 L intravenously. His vital signs show him to be afebrile and not tachycardic witha normal blood pressure. I am not concerned about sepsis. EKG was obtained and interpreted by myself which shows a ventricular paced rhythm at 70 bpm without ectopy or acute ST changes. No STEMI. I reviewed his laboratory work, he has a normal white count 9.3, hemoglobin stable at 13.3, hematocrit 40.0, platelet count normal at 155. Electrolyte panel was obtained and his sodium is normal at 139 with potassium normal at 4.0, chloride normal at104. BUN is slightly elevated at 29 and his creatinine is at his baseline of 1.39. While his glucose is elevated at 216, he has a normal anion gap of 7, I am not concerned about diabetic ketoacidosis. CT of the brain was obtained and radiology report reviewed, and there is no significant interval change from previous, does show his old cystic strokes. Chest x-ray in 1 view shows on my individual interpretation that there is no pneumonia or pneumothorax. I do not feel antibiotics are indicated. I reviewed the radiology report which confirms my independent interpretation. He did require cath/straight cath specimen for urine which shows no evidence of infection or dehydration. I do not feel antibiotics are indicated. At this point in time, I am unsure as to the cause of his reported weakness, but I do feel that he can be discharged to follow-up with his primary care provider. I do not feel he requires observation from his negative work-up today. Return instructions to the emergency department were reviewed. Disposition is discharged home in stable condition. History & Record Review Discussion w/independent historian: Patient Additional record(s) reviewed:: Prior ED visit and Prior labs Lab Data Attestation: I reviewed the patient's lab results. Labs: Laboratory Results - last 24 hr 04/10/23 04/10/23 04/10/23 12:30 12:30 15:12 WBC 9.3 RBC 4.14 L Hgb 13.3 Hct 40.0 MCV 96.6 H MCH 32.1 H MCHC 33.3 RDW Std Deviation 48.4 H RDW Coeff of Yonathan 13.8 Plt Count 155 MPV 11.2 Immature Gran % (Auto) 0.600 Neut % (Auto) 85.5 H Lymph % (Auto) 5.4 L [place] % (Auto) 6.7 Eos % (Auto) 1.4 Baso % (Auto) 0.4 Absolute Neuts (auto) 8.0 H Absolute Lymphs (auto) 0.50 L Nucleated RBC % 0 Differential Comment COMMENT Sodium 139 Potassium 4.0 Chloride 104 Carbon Dioxide 28.0 Anion Gap 7 BUN 29 H Creatinine 1.39 H Estim Creat Clear Calc 49.45 Est GFR (MDRD) Af Amer 65 Est GFR (MDRD) Non-Af 54 L BUN/Creatinine Ratio 20.9 H Glucose 216 H Calcium 9.5 Total Bilirubin 0.90 AST 16 ALT 12 L Alkaline Phosphatase 133 H Total Protein 8.0 Albumin 4.0 Globulin 4.0 Albumin/Globulin Ratio 1.0 Urine Color Yellow Urine Clarity Clear Urine pH 6.0 Ur Specific Shanks 1.015 Urine Protein Negative Urine Glucose (UA) Normal Urine Ketones Negative Urine Occult Blood Negative Urine Nitrite Negative Urine Bilirubin Negative Urine Urobilinogen Normal Ur Leukocyte Esterase Negative Urine RBC 0 SEEN Urine WBC 0 SEEN Ur Squamous Epith Cells 0 SEEN Urine Bacteria 0 SEEN Urine Mucus 0 SEEN Radiography Diagnostic Testing: Clinical Impression(s) from Imaging Studies Brain CT 04/10/23 13:18 IMPRESSION: 1. No CT evidence of intracranial bleeding, acute ischemic infarct or acute intracranial abnormality. 2. Large old cortical-based cystic infarctions involving the posterior right temporal lobe, right central lobe and the posterior aspect of the right superior frontal gyrus. 3. Small old ischemic infarct with focal atrophy and encephalomalacia in the left precentral gyrus. 4. Old lacunar ischemic infarct in the left thalamus. 5. No interval change when compared to 07/21/2022. Electronically Signed: Victorino Darby MD at 13:54 EDT , Chest X-Ray 04/10/23 13:26 IMPRESSION: 1. No acute findings in the chest. 2. No interval change when compared to 06/07/2022. Electronically Signed: Victorino Darby MD at 13:55 EDT , Discharge Plan Triage Chief Complaint: Weakness ED Provider: Victorino Badillo Dx/Rx/DC Orders Clinical Impression: Parkinson's disease, History of CVA (cerebrovascular accident), Debility, Weakness Instructions: ED Weakness (Uncertain Cause) Prescriptions: No Action bicalutamide [Casodex] 50 mg tablet 50 mg PO DAILY loratadine 10 mg capsule 10 mg PO DAILY PRN (Reason: allergies) topiramate 25 mg tablet 25 mg PO BID Rx Instructions: 2 tabs bid omeprazole 20 mg capsule,delayed release(DR/EC) 20 mg PO DAILY lisinopril 40 mg tablet 40 mg PO DAILY baclofen 20 mg tablet 20 mg PO TID Qty: 90 5RF carbidopa-levodopa 25-100 mg tablet 1 tab PO TID Qty: 90 5RF insulin glargine 100 UNIT/ML insulin pen 27 unit SQ QHS multivitamin Tablet 1 tab PO DAILY cyanocobalamin (vitamin B-12) [Vitamin B-12] 250 mcg Tablet 250 mcg PO DAILY tramadol 50 mg Tablet 50 mg PO Q6H PRN PRN (Reason: Pain Score 1-10) 7 Days Qty: 28 0RF spironolactone 25 mg tablet 1 tab PO DAILY Hold Instructions: Resume on 04/29/22. Label Comments: TAKE 1 TABLET BY MOUTH EVERY DAY bumetanide 1 mg tablet 3 tab PO DAILY Hold Instructions: Resume on 04/29/22. Label Comments: TAKE 3 TABLETS BY MOUTH ONCE DAILY calcium 300 mg Tablet,Chewable 300 mg PO DAILY polysaccharide iron complex [Ferrex 150] 150 mg iron capsule 150 mg PO DAILY Eliquis 5 mg tablet See Rx Instructions .ROUTE .COMPLEX Qty: 60 11RF Dose Instruction: TAKE ONE (1) TABLET BY MOUTH TWICE DAILY Rx Instructions: TAKE ONE (1) TABLET BY MOUTH TWICE DAILY carvedilol 6.25 mg tablet 6.25 mg PO BID Qty: 180 3RF Rx Instructions: must administer with a meal/food Primary Care Provider: Manuel Beebe Referrals: Manuel Beebe MD [Primary Care Provider] - As soon as possible Disposition Disposition: Home, Self Care What to do if you have Problems For any increased pain, shortness of breath, bleeding, nausea or vomiting, chestpain, or any unexpected problems, contact your Primary Care Provider. Call [facility] ([phone]) or report to the closest Emergency Room. Call 911 if necessary. 04/10/23 1523 <Electronically signed by Victorino Badillo MD> Cosigner Signature (if applicable): CC: Dr. Manuel Beebe MD ~ Signed [facility] Work Phone: 1([phone]) 219-885306-04-[address] Badillo [facility] April 10, 2023 4:17pm Note Date/Time April 10, 2023 1:23p [facility] Medical Records Department [address] [place] [address] Emergency Department Summary 04/10/23 MR#: [id number] Acct: [id number] Name: STEPH BAUMANN Rep #:[id number] : 1950 72 From: Victorino Badillo MD PCP: Dr. Manuel Beebe MD Status:RE G ER Location: ED ADDENDUM by Dr. Victorino Badillo MD on 04/10/23 at 1617 Initially, the plan was to discharge the patient home. However, RN stated that patient appeared more confused to him. Earlier, patient stated that he lives alone, and only gets help once a week. Power of criminal defense attorney had been called by RN who is out of town until Tuesday. For safety of the patient as I am unsure as to how he would perform his activities of daily living given an acute mental status change, weakness, and confusion, I discussed patient with Dr. Jacobs for assignment to observation on the medical floor for failure to thrive. Patient is in stable condition. 04/10/237<Electronically signed by Victorino Badillo MD> Cosigner Signature (if applicable): cc: Dr. Manuel Beebe MD ~* Signed HPI History of Present Illness Chief Complaint: Weakness Narrative Narrative: 72-year-old male past medical history of multiple medical problems including stroke, debility, chronic left sided weakness presents with right-sided weaknessthat has had for the last week. He states he feels dehydrated. He had vomitingwithin the last week but denies any fever or chills, no diarrhea, no abdominal pain. He presents via EMS wanting to make sure that he is not dehydrated. He denies any exacerbating or alleviating factors. He does have history of a pacemaker as well. [facility] Medical History Acute and chronic respiratory failure with hypoxia Acute heart failure with reduced ejection fraction and diastolic dysfunction Ambulates with cane Anticoagulant long-term use Ascites Asthma Atherosclerosis of coronary artery of [place] heart without angina pectoris Atrial fibrillation and flutter Back pain Benign brain tumor Cholelithiasis Chronic combined systolic and diastolic CHF (congestive heart failure) Chronic kidney disease (CKD) Cirrhosis of liver Cirrhosis of liver with ascites CPAP (continuous positive airway pressure) dependence Diabetes Diabetes mellitus, type II Essential (primary) hypertension Former smoker History of atrial fibrillation History of CVA (cerebrovascular accident) History of ulceration Hyperlipidemia Injury of back Insulin dependent diabetes mellitus Longstanding persistent atrial fibrillation Non-rheumatic tricuspid valve insufficiency Nonischemic cardiomyopathy NSTEMI (non-ST elevated myocardial infarction) (10/09/19) ALBINO (obstructive sleep apnea) 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 Right inguinal hernia Right ventricular systolic dysfunction Secondary pulmonary arterial hypertension Seizure disorder Sleep apnea Stasis edema of both lower extremities Stroke/cerebrovascular accident Thyroid disease Wears glasses Home Medications insulin glargine 100 unit/mL (3 mL) subcutaneous pen 27 unit SQ QHS diabetes 10/30/18 [History Last Taken 01/30/19] bicalutamide 50 mg tablet (Casodex) 50 mg PO DAILY prostate 12/10/21 [History Last Taken 02/18/22 10:32] loratadine 10 mg capsule 10 mg PO DAILY PRN allergies 12/10/21 [History Last Taken 02/18/22 10:32] cyanocobalamin (vitamin B-12) 250 mcg tablet (Vitamin B-12) 250 mcg PO DAILY Supplement 02/19/22 [History Last Taken 02/18/22 10:32] multivitamin 1 tab PO DAILY supplement 02/19/22 [History Last Taken 02/18/22 10:31] tramadol 50 mg tablet 50 mg PO Q6H PRN PRN Pain Score 1-10 7 days #28 tabs 04/01/22 [Rx Last Taken Unknown] bumetanide 1 mg tablet 3 tab PO DAILY water pill 04/25/22 [History Last Taken Unknown] calcium 300 mg chewable tablet 300 mg PO DAILY supplement 04/25/22 [History Last Taken Unknown] polysaccharide iron complex 150 mg iron capsule (Ferrex) 150 mg PO DAILY supplement 04/25/22 [History Last Taken Unknown] spironolactone 25 mg tablet 1 tab PO DAILY waterpill 04/25/22 [History Last Taken Unknown] apixaban 5 mg tablet (Eliquis) See Rx Instructions .Route .COMPLEX #60 TABLETS 05/19/22 [Rx Last Taken Unknown] lisinopril 40 mg tablet 40 mg PO DAILY 09/09/22 [History Last Taken Unknown] omeprazole 20 mg capsule,delayed release 20 mg PO DAILY 09/09/22 [History Last Taken Unknown] topiramate 25 mg tablet 25 mg PO BID 09/09/22 [History Last Taken Unknown] baclofen 20 mg tablet 20 mg PO TID #90 tabs 12/23/22 [Rx Last Taken Unknown] carbidopa 25 mg-levodopa 100 mg tablet 1 tab PO TID #90 tabs 12/23/22 [Rx Last Taken Unknown] carvedilol 6.25 mg tablet 6.25 mg PO BID This is a dose increase #180 tabs 03/10/23 [Rx Last Taken Unknown] Allergy/AdvReac Type Severity Reaction Status Date / Time acetaminophen AdvReac Other Verified 01/06/23 13:44 oxycodone AdvReac hallucinati Verified 01/06/23 13:44 ons Family History Daughter Heart disease valve replacement/chf Diabetes Mother Thyroid disorder Surgical History Biventricular ICD (implantable cardioverter-defibrillator) in place (10/12/19) H/O excision of tumor of brain meninges (2011) History of arthroplasty of right hip History of cardiac catheterization History of cardioversion (05/05/20) History of left heart catheterization (08/31/19) History of percutaneous coronary intervention (10/10/19) History of right and left heart catheterization History of right hip hemiarthroplasty History of tonsillectomy Social History household members: none Smoking Status: Former smoker how long ago did patient quit smokin years second hand exposure: No alcohol intake: never substance use type: does not use regla/yazidism: None seatbelt use: always ROS ROS ED ROS Narrative Constitutional: No fever, no chills. Generalized to right-sided weakness. HEENT: No sore throat. No neck pain. No loss of vision. No rhinorrhea. Cardiovascular: No chest pain. No palpitations. No pedal edema. Respiratory: No cough, no shortness of breath. Abdominal: No abdominal pain. No nausea. No vomiting. Genitourinary: No dysuria. No hematuria. Musculoskeletal: No myalgias. No arthralgias. Neurologic: No headaches. No dizziness. No lightheadedness. History of strokewith chronic weakness. Skin: No rash. No change in color. Psychiatric: No depression. No anxiety. EXAM Physical Exam Narrative Exam Narrative: Afebrile. Vital signs noted. HEENT: Normocephalic. Atraumatic. PERRL, EOMI. Neck soft and supple. No pointtenderness or step off. Cardiovascular: Regular rate and rhythm. No murmurs, rubs, or gallops appreciated. Respiratory: No tachypnea. Lungs clear to auscultation bilaterally. Gastrointestinal: Abdomen soft, nontender, with normoactive bowel sounds. No rebound or guarding. Neurological: Awake. Alert. Limited range of motion of bilateral upper and lower extremities, but able to move bilateral hands and feet/toes. Skin: No rash. Normal color. No pallor. Musculoskeletal: No pedal edema. Full range of motion extremities. Const Vital Signs: 04/10/23 12:46 04/10/23 14:43 Temperature 96.9 F L 97.1 F L Temperature Source Temporal Temporal Pulse Rate 71 74 Respiratory Rate 18 18 Blood Pressure 118/80 127/85 H Blood Pressure Mean 92 99 Pulse Ox 97 99 Oxygen Delivery Method Room Air Room Air MDM MDM MDM Narrative Medical decision making narrative: I reviewed the patient's EMR. He has history of stroke and Parkinson's along with seizure disorder, chronic cirrhosis. Comprehensive work-up will be pursuedto look for signs of infection including urinary tract infection and pneumonia, however he denies any fevers or chills, cough or shortness of breath. He deniesany dysuria or hematuria. I will check his CBC and CMP to look for anemia to see if he is indeed, dehydrated. He will be bolused normal saline 1 L intravenously. His vital signs show him to be afebrile and not tachycardic witha normal blood pressure. I am not concerned about sepsis. EKG was obtained and interpreted by myself which shows a ventricular paced rhythm at 70 bpm without ectopy or acute ST changes. No STEMI. I reviewed his laboratory work, he has a normal white count 9.3, hemoglobin stable at 13.3, hematocrit 40.0, platelet count normal at 155. Electrolyte panel was obtained and his sodium is normal at 139 with potassium normal at 4.0, chloride normal at104. BUN is slightly elevated at 29 and his creatinine is at his baseline of 1.39. While his glucose is elevated at 216, he has a normal anion gap of 7, I am not concerned about diabetic ketoacidosis. CT of the brain was obtained and radiology report reviewed, and there is no significant interval change from previous, does show his old cystic strokes. Chest x-ray in 1 view shows on my individual interpretation that there is no pneumonia or pneumothorax. I do not feel antibiotics are indicated. I reviewed the radiology report which confirms my independent interpretation. He did require cath/straight cath specimen for urine which shows no evidence of infection or dehydration. I do not feel antibiotics are indicated. At this point in time, I am unsure as to the cause of his reported weakness, but I do feel that he can be discharged to follow-up with his primary care provider. I do not feel he requires observation from his negative work-up today. Return instructions to the emergency department were reviewed. Disposition is discharged home in stable condition. History & Record Review Discussion w/independent historian: Patient Additional record(s) reviewed:: Prior ED visit and Prior labs Lab Data Attestation: I reviewed the patient's lab results. Labs: Laboratory Results - last 24 hr 04/10/23 04/10/23 04/10/23 12:30 12:30 15:12 WBC 9.3 RBC 4.14 L Hgb 13.3 Hct 40.0 MCV 96.6 H MCH 32.1 H MCHC 33.3 RDW Std Deviation 48.4 H RDW Coeff of Yonathan 13.8 Plt Count 155 MPV 11.2 Immature Gran % (Auto) 0.600 Neut % (Auto) 85.5 H Lymph % (Auto) 5.4 L [place] % (Auto) 6.7 Eos % (Auto) 1.4 Baso % (Auto) 0.4 Absolute Neuts (auto) 8.0 H Absolute Lymphs (auto) 0.50 L Nucleated RBC % 0 Differential Comment COMMENT Sodium 139 Potassium 4.0 Chloride 104 Carbon Dioxide 28.0 Anion Gap 7 BUN 29 H Creatinine 1.39 H Estim Creat Clear Calc 49.45 Est GFR (MDRD) Af Amer 65 Est GFR (MDRD) Non-Af 54 L BUN/Creatinine Ratio 20.9 H Glucose 216 H Calcium 9.5 Total Bilirubin 0.90 AST 16 ALT 12 L Alkaline Phosphatase 133 H Total Protein 8.0 Albumin 4.0 Globulin 4.0 Albumin/Globulin Ratio 1.0 Urine Color Yellow Urine Clarity Clear Urine pH 6.0 Ur Specific Shanks 1.015 Urine Protein Negative Urine Glucose (UA) Normal Urine Ketones Negative Urine Occult Blood Negative Urine Nitrite Negative Urine Bilirubin Negative Urine Urobilinogen Normal Ur Leukocyte Esterase Negative Urine RBC 0 SEEN Urine WBC 0 SEEN Ur Squamous Epith Cells 0 SEEN Urine Bacteria 0 SEEN Urine Mucus 0 SEEN Radiography Diagnostic Testing: Clinical Impression(s) from Imaging Studies Brain CT 04/10/23 13:18 IMPRESSION: 1. No CT evidence of intracranial bleeding, acute ischemic infarct or acute intracranial abnormality. 2. Large old cortical-based cystic infarctions involving the posterior right temporal lobe, right central lobe and the posterior aspect of the right superior frontal gyrus. 3. Small old ischemic infarct with focal atrophy and encephalomalacia in the left precentral gyrus. 4. Old lacunar ischemic infarct in the left thalamus. 5. No interval change when compared to 07/21/2022. Electronically Signed: Victorino Darby MD at 13:54 EDT , Chest X-Ray 04/10/23 13:26 IMPRESSION: 1. No acute findings in the chest. 2. No interval change when compared to 06/07/2022. Electronically Signed: Victorino Darby MD at 13:55 EDT , Discharge Plan Triage Chief Complaint: Weakness ED Provider: Victorino Badillo Dx/Rx/DC Orders Clinical Impression: Parkinson's disease, History of CVA (cerebrovascular accident), Debility, Weakness Instructions: ED Weakness (Uncertain Cause) Prescriptions: No Action bicalutamide [Casodex] 50 mg tablet 50 mg PO DAILY loratadine 10 mg capsule 10 mg PO DAILY PRN (Reason: allergies) topiramate 25 mg tablet 25 mg PO BID Rx Instructions: 2 tabs bid omeprazole 20 mg capsule,delayed release(DR/EC) 20 mg PO DAILY lisinopril 40 mg tablet 40 mg PO DAILY baclofen 20 mg tablet 20 mg PO TID Qty: 90 5RF carbidopa-levodopa 25-100 mg tablet 1 tab PO TID Qty: 90 5RF insulin glargine 100 UNIT/ML insulin pen 27 unit SQ QHS multivitamin Tablet 1 tab PO DAILY cyanocobalamin (vitamin B-12) [Vitamin B-12] 250 mcg Tablet 250 mcg PO DAILY tramadol 50 mg Tablet 50 mg PO Q6H PRN PRN (Reason: Pain Score 1-10) 7 Days Qty: 28 0RF spironolactone 25 mg tablet 1 tab PO DAILY Hold Instructions: Resume on 04/29/22. Label Comments: TAKE 1 TABLET BY MOUTH EVERY DAY bumetanide 1 mg tablet 3 tab PO DAILY Hold Instructions: Resume on 04/29/22. Label Comments: TAKE 3 TABLETS BY MOUTH ONCE DAILY calcium 300 mg Tablet,Chewable 300 mg PO DAILY polysaccharide iron complex [Ferrex 150] 150 mg iron capsule 150 mg PO DAILY Eliquis 5 mg tablet See Rx Instructions .ROUTE .COMPLEX Qty: 60 11RF Dose Instruction: TAKE ONE (1) TABLET BY MOUTH TWICE DAILY Rx Instructions: TAKE ONE (1) TABLET BY MOUTH TWICE DAILY carvedilol 6.25 mg tablet 6.25 mg PO BID Qty: 180 3RF Rx Instructions: must administer with a meal/food Primary Care Provider: Manuel Beebe Referrals: Manuel Beebe MD [Primary Care Provider] - As soon as possible Disposition Disposition: Home, Self Care What to do if you have Problems For any increased pain, shortness of breath, bleeding, nausea or vomiting, chestpain, or any unexpected problems, contact your Primary Care Provider. Call [facility] ([phone]) or report to the closest Emergency Room. Call 911 if necessary. 04/10/23 1553 <Electronically signed by Victorino Badillo MD> Cosigner Signature (if applicable): CC: Dr. Manuel Beebe MD ~ Signed [facility] Work Phone: [phone]) 629-965205-17-2023 History of Present illness Narrative* Manuel Beebe MD - 03/23/2023 8:18 AM EDT This note was created using [employer]. Subjective Steph Baumann is a 72 year [...] and tenderness lateral hip. Told to keep doingexercises. Does have HCDPOA and LW--will drop off copy again. Bob Matthew is HCDPOA (contact info on chart). Depression Screening 04/03/2021 10/01/2022 10/01/2022 03/23/2023 PHQ-2 Score 0 0 0 0 PHQ-9 Score 0 - - - NUNU-2 Total Score - - - - Depression screening tool completed and reviewed. Based on score and interview, patient is not at risk for depression. Screening tool discussed with patient, and I recommended no further interventionat this time. PAST MEDICAL HISTORY Diagnosis Date [...] Two times a day. 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 Yes E11.9 DM 2 insulin needles, DISPOSABLE, (PEN NEEDLE) 31 gauge x 5/16" Use one needle per dose. One per day. DXE11.9 Insulin Yes albuterol HFA (VENTOLIN HFA) 90 mcg/actuation inhaler Inhale 2 Puffs as instructed every 6 hours asneeded for wheezing/shortness of breath. nitroglycerin sublingual (NITROQUICK) [...] 100 unit/mL (3 mL) Inject 27 Units subcutaneouslydaily at bedtime. Adjust dose as directed No [...] Height as of 03/09/23: 177.8 cm (5' 10"). Weight as of this encounter: 78.5 kg [...] sleep. Manuel Beebe MD [facility] Miscellaneous Notes* Telephone Encounter - Netta Espinal RN - 03/15/2023 11:11 AM EDT Called patient and left a VM. Callback number provided. Called patient's caregiver, Bob, per patient request and reviewed message with her. She wanted to provide the update that patient is at the 6.25 dose of coreg. Netta Espinal RN March 15, 2023 11:12 AM * Telephone Encounter - Merlin Loredo MD - 03/15/2023 10:37 AM EDT Netta, Please let him know The results for CMP were delayed for several days, which is why I dod not call him on Liver tests look quite good. His MELD score (11) is the same as it was in August. I look forward to visit scheduled for Sep 13, after refreshed labs and new US. Thanks Merlin Loredo MD * Telephone Encounter - Agata Pinto - 03/09/2023 4:44 PM EDT 03/09/23 Patient calling for results. Agata documented [facility] Miscellaneous Notes* Telephone Encounter - Netta Espinal RN - 03/15/2023 11:08 AM EDT Results reviewed. See phone encounter dated 03/09/23. Netta Espinal RN March 15, 2023 11:08 AM * Telephone Encounter - Agata Pinto - 03/11/2023 10:30 AM EDT 03/11/23 Patient calling for lab results, If you can call his caregiver, Jim [phone] Agata documented [facility]23 History of Present illness Narrative* Merlin Loredo MD - 03/09/2023 4:10 PM EDT Follow up cirrhosis Here with friend Last [...] further decompensation from liver disease at this timebut will f/u updated labwork and imaging. - CBC, CMP, INR done today--results pending; will calculated MELD-Na score. Repeat labwork ordered in 6 mo. - Patient to discuss starting carvedilol with sheet hanger (ideally 6.25mg PO BID). Patient will also [...] Position: Sitting, BP Cuff Size: Regular Adult) Pulse70 Temp 36.1 C (97 F) (Temporal) Ht 177.8 cm (5' 10") Wt 78 kg (172 lb) SpO2 98% BMI 24.68 kg/m general: somewhat frail - in wheelchair NAD neuro: no asterixis Impression: cirrhosis, stable MELD 17 August MELD today ??? Rec: continue same program 2. new labs and US 6 months I will call after CMP is available Merlin Loredo MD documented in this encounter[facility]04-21-[facility]23 History of Present illness Narrative* Dinorah Posada RN - 02/25/2023 1:36 PM EDT CDM Telephonic Outreach Provider Action/FYI CDM: CHF, Asthma Called Pt, unable to leave a message to verify symptom status and needs. Contacted for: Routine Telephonic Outreach Contact made with patient: No, unable to leave message. Will reattempt call Dinorah Posada RN February 25, 2023 1:37 PM documented in this [facility]04-[facility]23 History of Present illness Narrative* Dinorah Posada RN - 02/09/2023 5:30 PM EDT [facility] TELEPHONIC OUTREACH Provider Action/FYI: CDM: CHF, Asthma Called Pt, unable to leave a message to verify symptom status and needs. Contact made with patient: No - Unable to leave message Entered next patient outreach date for the following business day, if third call please enter next outreach date for one week in the Track Pt. Outreach - End Outreach Dinorah Posada RN February 09, 2023 5:30 PM documented in this encounter[facility]03-29-[facility] History of Present illness Narrative* Dinorah Posada RN - 02/02/2023 5:19 PM EDT [facility] TELEPHONIC OUTREACH Provider Action/FYI: CDM: CHF, Asthma Call unable to leave a message to verify symptom status and needs. Contact made with patient: No - Unable to leave message Entered next patient outreach date for the following business day, if third call please enter next outreach date for one week in the Track Pt. Outreach - End Outreach Dinorah Posada RN February 02, 2023 5:19 PM documented in this encounterEast [facility]02-28-2023 History of Present illness Narrative* Dinorah Posada RN - 01/04/2023 5:08 PM EST [facility] TELEPHONIC OUTREACH Provider Action/FYI: CDM: CHF/ Asthma [...] the Track Pt. Outreach - End Outreach Dinorah Posada RN January 04, 2023 5:08 PM documented in this encounter[facility]02-27-2023 History of Present illness Narrative* Dinorah Posada RN - 01/03/2023 10:10 AM EST CECILIO [facility] TELEPHONIC OUTREACH Provider Action/FYI: CDM: [...] the Track Pt. Outreach - End Outreach Dinorah Posada RN January 03, 2023 10:10 AM * Dinorah Posada RN - 12/30/2022 12:26 PM EST [facility]EC[facility] TELEPHONIC OUTREACH Provider Action/FYI: CDM: [...] the Track Pt. Outreach - End Outreach Dinorah Posada RN December 30, 2022 12:26 PM documented in this encounter[facility]02-15-2023 Miscellaneous Notes* Telephone Encounter - Manuel Beebe MD - 12/22/2022 4:53 PM EST Okayed * Telephone Encounter - Mckenna Hernandez - 12/22/2022 2:27 PM EST Patient has been identified by name and [...] patient. Mckenna Deluna Pss documented in this encounterEast [facility]01-18-2023 History of Present illness Narrative* Dinorah Posada RN - 11/24/2022 9:25 AM EST [facility] TELEPHONIC OUTREACH Provider Action/FYI: CDM: [...] the Track Pt. Outreach - End Outreach Dinorah Posada RN November 24, 2022 9:25 AM * Dinorah Posada RN - 11/22/2022 10:20 AM EST CEC[facility] TELEPHONIC OUTREACH Provider Action/FYI: CDM: [...] the Track Pt. Outreach - End Outreach Dinorah Posada RN November 22, 2022 10:20 AM documented in this encounterEast [facility]12-13-2022 History of Present illness Narrative* Dinorah Posada RN - 10/19/2022 5:51 PM EST [facility]EC[facility]IO [facility] TELEPHONIC OUTREACH Provider Action/FYI: CDM: CHF / Asthma Call to Pt, unable to leave a message. Contact made with patient: No - Unable to leave message Entered next patient outreach date for the following business day, if third call please enter next outreach date for one week in the Track Pt. Outreach - End Outreach Dinorah Posada RN October 19, 2022 5:51 PM * Dinorah Posada RN - 10/18/2022 9:58 AM EST [facility] Provider Action/FYI: CDM: CHF / Asthma 10/18/22 Left a message to verify symptom status and needs Contact made with patient: No - Left message Hello my name is Dinorah Posada RN your Treating Engineer [facility] I am callingtoday for your bi-weekly check in. I am sorry I missed your call. I will reach out to you again tomorrow. (if the third call I will reach out to you again next week) Enter next patient outreach date for the following business day using the Track Pt Outreach. End outreach. Dinorah Posada RN October 18, 2022 9:58 AM documented in this encounterEast [facility]11-28-2022 Miscellaneous Notes* Telephone Encounter - Pam Simpson Ma - 10/04/2022 8:25 AM EST Received diabetic supply orders from "[facility] medical supply". Confirmed with patient, he does not not use this company and buys supplies out of pocket. Disregard future requests. documented in this encounter[facility]11-09-2022 History of Present illness Narrative* Dinorah Posada RN - 09/15/2022 12:14 PM EST [facility] TELEPHONIC OUTREACH Provider Action/FYI: Called Pt left a message to verify CHF/ Asthma or other symptoms and needs. Contact made with patient: No - Left message Hello my name is Dinorah Posada RN your Treating Engineer [facility] I am callingtoday for your bi-weekly check in. I am sorry I missed your call. I will reach out to you again tomorrow. (if the third call I will reach out to you again next week) Enter next patient outreach date for the following business day using the Track Pt Outreach. End outreach. Dinorah Posada RN September 15, 2022 1:24 PM documented in this encounterEast [facility]10-27-2022 Instructions* Patient Instructions* Margareth Rivas MD - 09/02/2022 12:11 PM EDT Thank you for coming to your visit with Dr. Loredo. Below are some of the things we discussed: Please discuss with your sheet hanger the followin) Starting carvedilol 2 times per [...] Loredo in 6 months. documented in this encounterEast [facility]10-27-2022 History of Present illness Narrative* Merlin Loredo MD - 09/02/2022 11:30 AM EDT HEPATOLOGY CLINIC - ESTABLISHED PATIENT Chief Complaint: [...] (patient not currently on beta zeeshan therapy; unclearwhy this was discontinued after the last hospitalization). [...] Coronary Artery Disease Mother Thyroid Mother thinks "over active" Diabetes Child daughter Social History: Social History [...] 100 unit/mL (3 mL) Inject 27 Units subcutaneouslydaily at bedtime. Adjust dose as directed bicalutamide (CASODEX) 50 mg tablet Take 50 mg by mouth once daily. blood sugar diagnostic (BLOOD GLUCOSE TEST) test strip Test Two times a day. 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 Yes E11.9 DM 2 insulin needles, DISPOSABLE, (PEN NEEDLE) 31 gauge x 5/16" Use one needle per dose. One per day. DXE11.9 Insulin Yes albuterol HFA (VENTOLIN HFA) 90 mcg/actuation inhaler Inhale 2 Puffs as instructed every 6 hours asneeded for wheezing/shortness of breath. loratadine (CLARITIN) 10 [...] 70 Temp (Src) 97.7 (Temporal) Ht 5' 9" (1.75m) Wt 171 lb (77.6kg) SpO2 99% [...] further decompensation from liver disease at this timebut will f/u updated labwork and imaging. - CBC, CMP, INR done today--results pending; will calculated MELD-Na score. Repeat labwork ordered in 6 mo. - Patient to discuss starting carvedilol with sheet hanger (ideally 6.25mg PO BID). Patient will also [...] s note. See me in 6 months Merlin Loredo MD documented in this encounterEast [facility]10-07-2022 History of Present illness Narrative* Albino Copeland RN - 08/13/2022 3:13 PM EDT INSIGHT [facility] TELEPHONIC OUTREACH Provider Action/FYI: Call to Pt, left a message to verify CHF/ Asthma and other symptom status and needs. Contact made with patient: No - Left message Hello my name is Dinorah Posada RN your Treating Engineer [facility] I am callingtoday for your bi-weekly check in. I am sorry I missed your call. I will reach out to you again tomorrow. (if the third call I will reach out to you again next week) Enter next patient outreach date for the following business day using the Track Pt Outreach. End outreach. Dinorah Posada RN August 13, 2022 3:13 PM documented in this encounterEast Liverpool City Hospital09-22-2022 Miscellaneous Notes* Telephone Encounter - Lashonda Moore LPN - 07/29/2022 4:15 PM EDT Note and letter faxed to [facility] and patient notified. However patient states that he has already has the chair. * Telephone Encounter - Manuel Beebe MD - 07/29/2022 11:45 AM EDT Print letter and attach April progress note. As noted in prior note, we did not talk about the mobility device, but I referenced the progress note in the letter. That should be adequate for their purchasing the scooter out of pocket. Will addend as needed if able. * Telephone Encounter - Kendra Bennett RN - 07/29/2022 8:31 AM EDT Pts friend called and is notified of providers message. She states they are paying for it out of pocket, and they only need a script sent over so they can remove the tax. Please let them know when the script has been sent. Kendra Bennett RN * Telephone Encounter - Manuel Beebe MD - 07/28/2022 7:35 PM EDT If they want the power mobility device [...] pay out of pocket, needs an appointment. * Telephone Encounter - [facility] - 07/20/2022 10:55 AM EDT Bob calling back about this RX being sent with office notes attached that notes patient needs themobility power operated chair. Please send this to [facility] at fax # [phone] and office number is [phone] * Telephone Encounter - Sania Eagle LPN - 07/15/2022 2:10 PM EDT Called [facility] this is correct. They just need a prescription for this and then taxes will be voided. Do not know how to enter this to come up this way. * Telephone Encounter - Becky Hernandez - 07/15/2022 1:59 PM EDT Bob Ferraro called back with the phone and fax for [facility]: Bob can be reached at [phone]. * Telephone Encounter - Kendra Bennett RN - 07/15/2022 12:53 PM EDT Bob Ferraro called in and was reporting that Pt is still having mobility issues from when he fractured his hip in February. She was looking at the [employer] Mobility Scooter at [facility]. She reports if a provider writes a letter for the Pt then they can get the tax paid for. She states the scooter is $2300, but the Pt is scared of falling and with this one he would be able to use itin his apartment. Please call her back and advise. documented in this encounterEast Liverpool City Hospital09-13-2022 Miscellaneous Notes* Telephone Encounter - Jessica Lund - 07/20/2022 11:11 AM EDT Patient unable to make the 40 minute [...] afternoons late after 3 pm Please call Bob, his caregiver at [phone] documented in this encounterEast Liverpool City Hospital08-18-2022 History of Present illness Narrative* Albino Copeland RN - 06/24/2022 11:38 AM EDT INSIGHT CDM TELEPHONIC OUTREACH Provider Action/FYI: Call to Pt, left a message to verify CHF/ Asthma symptoms, and post Rehab status. Contact made with patient: No - Left message Scout my name is Dinorah Posada RN your Treating Engineer from the [facility] I am callingtoday for your bi-weekly check in. I am sorry I missed your call. I will reach out to you again tomorrow. (if the third call I will reach out to you again next week) Enter next patient outreach date for the following business day using the Track Pt Outreach. End outreach. Dinorah Posada RN June 24, 2022 11:38 AM * Albino Copeland RN - 06/23/2022 1:29 PM EDT INSIGHT CDM TELEPHONIC OUTREACH Provider Action/FYI: Call to Pt, unable to leave a message to verify CHF/ Asthma symptoms or needs. Contact made with patient: No - Unable to leave message Entered next patient outreach date for the following business day, if third call please enter next outreach date for one week in the Track Pt. Outreach - End Outreach Dinorah Posada RN June 23, 2022 1:29 PM documented in this encounterEast Liverpool City Hospital08-09-2022 History of Present illness Narrative* Munira Dickerson MD - 06/15/2022 4:20 PM EDT [facility] [address] [facility] [address] [facility] [address] Steph Baumann is a 72 y.o. male [...] Psychiatric/Behavioral: Negative for behavioral problems. Ht 5' 9" Wt 79.4 kg (175 lb) BMI 25.84 kg/m Imaging: No results found. 1. Status post hip hemiarthroplasty Return if symptoms worsen or fail to improve. Munira Dickerson MD documented in this [id number] Miscellaneous Notes* Telephone Encounter - Pam Simpson Ma - 06/15/2022 1:30 PM EDT LM notifying [facility] * Telephone Encounter - Manuel Beebe MD - 06/14/2022 12:09 PM EDT Jerome hamlin * Telephone Encounter - Deedee Florian LPN - 06/14/2022 9:50 AM EDT [facility] from [email or web address] [facility] calling recert for PT, plan of care 2 visits weekly for 3 weeks working on fall prevention. Patient was recently in [facility] ER for high blood sugars. documented in this encounterEast Liverpool City Hospital08-02-2022 History of Present illness Narrative* Albino Copeland RN - 2022 10:03 AM EDT INSIGHT CDM TELEPHONIC OUTREACH Provider Action/FYI: Call to Pt related to CHF/ Asthma, unable to leave a message. Contact made with patient: No - Unable to leave message Entered next patient outreach date for the following business day, if third call please enter next outreach date for one week in the Track Pt. Outreach - End Outreach Dinorah Posada RN 2022 10:03 AM * Albino Copeland RN - 06/07/2022 11:27 AM EDT [facility] TELEPHONIC OUTREACH Provider Action/FYI: Call to Pt, left a message related to CHF/ Asthma symptoms or needs. Contact made with patient: No - Left message Hello my name is Dinorah Posada RN your Treating Engineer from the [facility] I am callingtoday for your bi-weekly check in. I am sorry I missed your call. I will reach out to you again tomorrow. (if the third call I will reach out to you again next week) Enter next patient outreach date for the following business day using the Track Pt Outreach. End outreach. Dinorah Posada RN June 07, 2022 11:27 AM documented in this encounterEast Liverpool City Hospital07-14-2022 History of Present illness Narrative* Albino Copeland RN - 05/20/2022 1:54 PM EDT [facility] TELEPHONIC OUTREACH Provider Action/FYI: Call to Pt left a message to verify CHF/ Asthma symptoms or needs. Contact made with patient: No - Left message Hello my name is Dinorah Posada RN your Treating Engineer from the [facility] I am callingtoday for your bi-weekly check in. I am sorry I missed your call. I will reach out to you again tomorrow. (if the third call I will reach out to you again next week) Enter next patient outreach date for the following business day using the Track Pt Outreach. End outreach. Dinorah Posada RN May 20, 2022 1:55 PM * Albino Copeland RN - 05/19/2022 9:09 AM EDT INSIGHT CDM TELEPHONIC OUTREACH Provider Action/FYI: Call to Pt left a message to verify CHF/ Asthma symptoms or needs. Contact made with patient: No - Left message Scout my name is Dinorah Posada RN your Treating Engineer from the [facility] I am callingtoday for your bi-weekly check in. I am sorry I missed your call. I will reach out to you again tomorrow. (if the third call I will reach out to you again next week) Enter next patient outreach date for the following day using the Track Pt Outreach. End outreach. Dinorah Posada RN May 19, 2022 9:09 AM documented in this encounterEast Liverpool City Hospital07-13-2022 Miscellaneous Notes* Telephone Encounter - Manuel Beebe MD - 05/19/2022 1:03 PM EDT Okayed * Telephone Encounter - Jessica Lund - 05/19/2022 12:44 PM EDT Patient calling back, he and his POA confirmed they have called [facility] directly. * Telephone Encounter - Megan Hernandez - 05/19/2022 10:52 AM EDT Patient has been identified by name [...] a message that he needs to call [facility] and re-establish his account with them since his POA put the account on hold while he was at a rehab facillity/hospital. Patient aware RX will be sent to pharmacy. No need to notify patient. Megan Rosales Pss documented in this encounterEast Liverpool City Hospital07-12-2022 History of Present illness Narrative* Munira Dickerson MD - 05/18/2022 4:28 PM EDT [facility] [address]) [facility] [address] [facility] [address] Steph Baumann is a 71 y.o. male being seen today, 05/18/22, No chief complaint on file. [chief complaint] status post hemiarthroplasty right hip HPI Dictation: Man seen in follow-up on his last visit as concerned about a possible compression deformity of L2 MRI recommended over not done because some metal in his brain is here with a caregiverwho indicates he has improved since his last [...] requiring operative repair, right, closed, initial encounter ([facility]) 2. Low back pain without sciatica, unspecified back pain laterality, unspecified chronicity Return in about 4 weeks (around 06/15/2022). Munira Dickerson MD documented in this [id number] Miscellaneous Notes* Telephone Encounter - Lashonda Moore LPN - 05/13/2022 4:18 PM EDT Friend Bob notified that handipcap mika is ready for sweet pickle maker in medical records and she verbalized understanding * Telephone Encounter - Olga Styles APRN.QUALITY CONTROL SUPERVISOR - 05/13/2022 4:08 PM EDT ok * Telephone Encounter - Cyndee Hill RN - 05/12/2022 11:07 AM EDT Friend (Bob) calls to request a prescription for a handicap placard d/t patient receiving a letter from BM stating he needs an updated order. Pended per request. Bob will sweet pickle maker in medical records when ready and requests calling her at [phone]. Cyndee Hill RN documented in this encounterEast Liverpool City Hospital06-28-2022 Miscellaneous Notes* Telephone Encounter - Kendra Bennett RN - 05/04/2022 10:57 AM EDT Sent request to Medical Records at [facility] to send over Medication list from [facility]. Having them send to fax # [phone]. * Telephone Encounter - Cyndee Hill RN - 05/04/2022 10:26 AM EDT Bob returns call after speaking with patient. Patient reports he is no longer having any anxiety and feels good. Patient doesn't want an appointment at this time. Cyndee Hill RN * Telephone Encounter - Kendra Bennett RN - 05/04/2022 10:17 AM EDT Bob called and is notified of providers message and instructions. She voices understanding and feels the Pt is doing much better, but is going to call him and see if he would want to come in for anappointment. She states she would like to keep him on as less medication as possible. Kendra Bennett RN * Telephone Encounter - Manuel Beebe MD - 05/03/2022 7:42 PM EDT With his liver, cardiac, asthma and history of heart failure, should be seen to discuss management of anxiety and make sure that is the issue. Do we have list of meds was given when in TCU? * Telephone Encounter - Samina Watt RN - 04/30/2022 8:34 AM EDT Bobmorro Ferraro calls on behalf of patient. Patient was seen in [facility] ER for chest pain. Patient was worked up in the ER. Per Bob ER thinks it is more anxiety than cardiac. While on TCU patient was prescribed something for anxiety. Bob asking if provider can send in a prescription to help with anxiety to [facility] pharmacy? Please review and advise, Samina Watt RN documented in this encounterEast Liverpool City Hospital06-15-2022 History of Present illness Narrative* Albino Copeland RN - 04/21/2022 9:18 AM EDT INSIGHT CDM TELEPHONIC OUTREACH Provider Action/FYI: Spk [...] like to speak with a social work customer solutions teammate to help give you support for any [...] work with you to ensure that we arekeeping your medical condition(s) well-controlled and to keep you healthy and out of the doctor's office or hospital. It s also not too late for me to sign you up for automated weekly questionnaires through [employer]. This is an easy way for us [...] the week as today in the Track PtOutreach and End outreach. Dinorah Posada RN April 21, 2022 1:16 PM documented in this encounterEast Liverpool City Hospital06-10-2022 History of Present illness Narrative* Jana Masonjayden, [facility] - 04/16/2022 10:00 AM EDT Primary Care Pharmacy Visit REASON FOR CONSULT: DM GOALS: A1c < 8% CONSULTING PROVIDER: Olga Styles APRN.CNS Date of Consult: 01/08/22 Steph Baumann is a 71 year old male presenting for follow up visit by telephone. Patient consents to pharmacy collaborative practice agreement. Last seen by Olga Styles APRN.QUALITY CONTROL SUPERVISOR on 01/12/22. Atlast QUALITY CONTROL SUPERVISOR appt, patient was encouraged to follow up with [facility]. At that visit provider also noted that spironolactone was stopped, and bumex dose decreased due to hypotension, was encouraged to recheck BMP. At PharmD visit on 02/02/22, blood sugar testing supplies were ordered, and clarified medication discrepancies with cardiology. INTERIM HISTORY: Since last visit, patient had hip fracture and was following at [facility]. Discharged home on 04/14 Patient reports his readings are "doing well". States fasting BG this morning was 124 [...] not present. Adherence: denies missed doses. Pharmacy: [facility] supplies: Wireless Environment System: ACTIVE PROBLEM LIST Brain Tumor (Hcc) [...] Metformin Diarrhea Even low dose caused diarrhea Mason [Hydrocodone-* Intolerance Hallucination Current Outpatient Medications Medication Sig bicalutamide (CASODEX) 50 mg tablet Take 50 mg by mouth once daily. blood sugar diagnostic (BLOOD GLUCOSE TEST) test strip Test Two times a day. 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 Yes E11.9 DM 2 insulin needles, DISPOSABLE, (PEN NEEDLE) 31 gauge x 5/16" Use one needle per dose. One per day. DXE11.9 Insulin Yes insulin glargine (BASAGLAR KWIKPEN U-100 INSULIN) 100 unit/mL (3 mL) Inject 29 Units subcutaneouslydaily at bedtime. Adjust dose as directed bumetanide (BUMEX) 1 mg tablet Take 1 tablet by mouth once daily. albuterol HFA (VENTOLIN HFA) 90 mcg/actuation inhaler Inhale 2 Puffs as instructed every 6 hours asneeded for wheezing/shortness of breath. loratadine (CLARITIN) 10 [...] complication, with long-term current use of insulin ([facility]) - ICD9: 250.00, V58.67, ICD10: E11.9, Z79.4 A1c goal < 8%; not at goal (last A1c 11.1%); Patient reports improving BG readings; denies s/sx hypoglycemia; denies s/sx hyperglycemia; Patient taking lower dose of insulin as was adjusted at rehab facility. Today, will continue current regimen and recheck A1c with upcoming labs. Renal functionand LFTs appropriate for continued use ADJUSTED Insulin glargine 27 units once daily to reflect current dose. HbA1c: due now Follow up: Patient is scheduled to see PCP on 04/28/22. Patient to follow up with PharmD, TBD once labs result Patient verbalized understanding of instructions. Jana Lara, Butch, BCACP Primary Care Clinical Pharmacist [facility] The majority of the pharmacy visit (> 50%) was spent counseling and/or coordinating care for thepatient. [Telephonic] time was 16 minutes. documented in this encounterEast Liverpool City Hospital06-02-2022 Miscellaneous Notes* Telephone Encounter - Sania Eagle LPN - 04/08/2022 4:17 PM EDT Order called back to [facility]. * Telephone Encounter - Manuel Beebe MD - 04/08/2022 4:01 PM EDT Will follow * Telephone Encounter - Kayleigh Hummel LPN - 04/06/2022 9:21 AM EDT Jasmyne from [facility] reports pt will be discharging from TCU at [facility] on 04/14/22 following a right hipfx. Will need nursing & PT, will pcp follow? Kayleigh Hummel LPN documented in this encounterEast Liverpool City Hospital05-31-2022 History of Present illness Narrative* Albino Copeland RN - 04/06/2022 4:15 PM EDT PRIMARY CARE COORDINATION QUICK NOTE Provider Action/FYI Routed update to Dr. Parker Nelson with Pt he [facility], Instructed to schedule follow up Appt with Dr. Beebe/ Olga Styles, he verbalized understanding and appreciation for the follow-up. Patient identified by name and date . Dinorah Posada RN April 06, 2022 4:15 PM documented in this encounterEast Liverpool City Hospital05-26-2022 Miscellaneous Notes* Telephone Encounter - Jana Lara RPh - 04/01/2022 2:45 PM EDT Noted, will follow up with patient at scheduled visit time. Jana Lara PharmD, KHUSHBU Primary Care Clinical Pharmacist [facility] * Telephone Encounter - Samina Smith - 04/01/2022 2:39 PM EDT Bob returned your call. Patient is at [facility] for a broken hip and doing physical therapy. Tentative discharge date is 04/14/22 and a follow up appointment has been scheduled for 04/16. If there are any issues or concerns, please call Bob at [phone]. Samina Smith * Telephone Encounter - Jana Lara RP - 04/01/2022 1:36 PM EDT Patient cancelled last pharmacy visit and is due for diabetes follow up to review blood sugars. Called and spoke with patient to offer pharmacy visit. Patient states he relies on caregiver Bob to make appts. Called and Left voicemail for Bob asking to return call to [phone] to schedulepharmacy visit. Jana Lara PharmD, KHUSHBU Primary Care Clinical Pharmacist [facility] documented in this encounterEast Liverpool City Hospital05-20-2022 History of Present illness Narrative* Olga Styles APRN.QUALITY CONTROL SUPERVISOR - 03/26/2022 4:06 PM EDT noted, monitor for discharge to SNF/home. Obtain records when available. * Albino Copeland RN - 03/26/2022 2:32 PM EDT [facility] TELEPHONIC OUTREACH Provider Action/FYI: Routed update to Dr. Beebe- No Action required Spk with Pt he reported fall with fracture of Right Hip, he noted surgical repair, is currently at [facility], undetermined Length of Stay. Contact made with patient: Yes Patient identified by name and . Discussed care with patient It s nice talking to you again. As a reminder, this is our bi-weekly check-in where I will be asking you questions about your health. This will only take a few minutes of your time. Is this a good time? Yes Dinorah Posada RN March 26, 2022 2:33 PM * Albino Copeland RN - 03/25/2022 4:41 PM EDT [facility] TELEPHONIC OUTREACH Provider Action/FYI: Call to Pt to verify symptom status and needs. Contact made with patient: No - Left message Hello my name is Dinorah Posada RN your Treating Engineer from the [facility] I am calling today for your bi-weekly check in. I am sorry I missed your call. I will reach out to you again tomorrow. (if the third call I will reach out to you again next week) Enter next patient outreach date forthe following using the Track Pt Outreach. End outreach. Dinorah Posada RN March 25, 2022 4:41 PM documented in this encounterEast Liverpool City Hospital05-17-2022 History of Present illness Narrative* Munira Dickerson MD - 03/23/2022 4:05 PM EDT [facility] [address]) [facility] [address] [facility] [address] Steph Baumann is a 71 y.o. male [...] Psychiatric/Behavioral: Negative for behavioral problems. Ht 5' 9" Wt 74.4 kg (164 lb) BMI 24.22 [...] No periprosthetic fractures. Intact right hip replacement. Teranode Workstation ID: [id number] 1. Hip fracture requiring operative repair, right, closed, initial encounter ([facility]) 2. Low back pain without sciatica, unspecified back pain laterality, unspecified chronicity Return for post mri. Munira Dickerson MD documented in this [id number] History of Present illness Narrative* Albino Copeland RN - 03/16/2022 4:30 PM EDT INSIGHT CDM TELEPHONIC OUTREACH Provider Action/FYI: Call to Pt left a message to verify CHF/ Asthma symptom status and needs Contact made with patient: No - Left message Hello my name is Dinorah Posada RN your Treating Engineer from the [facility] I am calling today for your bi-weekly check in. I am sorry I missed your call. I will reach out to you again tomorrow. (if the third call I will reach out to you again next week) Enter next patient outreach date forthe following day using the Track Pt Outreach. End outreach. Dinorah Posada RN March 16, 2022 4:30 PM * Albino Copeland RN - 03/15/2022 1:51 PM EDT [facility] TELEPHONIC OUTREACH Provider Action/FYI: Call to Pt left a message to verify CHF/ Asthma symptom status and needs Contact made with patient: No - Left message Helregis my name is Dinorah Posada RN your Treating Engineer from the [facility] I am calling today for your bi-weekly check in. I am sorry I missed your call. I will reach out to you again tomorrow. (if the third call I will reach out to you again next week) Enter next patient outreach date forthe following using the Track Pt Outreach. End outreach. Dinorah Posada RN March 15, 2022 1:51 PM documented in this encounterEast Liverpool City Hospital04-27-2022 History of Present illness Narrative* Albino Copeland RN - 03/03/2022 11:15 AM EDT [facility] TELEPHONIC OUTREACH Provider Action/FYI: Call to Pt left a message to verify CHF/ Asthma symptoms and needs. Contact made with patient: No - Left message Scout my name is Dinorah Posada RN your Treating Engineer from the [facility] I am calling today for your bi-weekly check in. I am sorry I missed your call. I will reach out to you again tomorrow. (if the third call I will reach out to you again next week) Enter next patient outreach date forth following day using the Track Pt Outreach. End outreach. Dinorah Posada RN March 03, 2022 11:16 AM documented in this encounterEast Liverpool City Hospital04-20-2022 History of Present illness Narrative* Abby Chang MA - 02/24/2022 3:33 PM EDT WILBER FROM [facility] CALLED STATING THERE WAS SOME ISSUES [...] MADE FOR 4 WEEKS. documented in this [id number] History of Present illness Narrative* Albino Copeland RN - 02/22/2022 9:12 AM EDT INSIGHT CDM TELEPHONIC OUTREACH Provider Action/FYI: Call to Pt left a message to verify CHF / Asthma or other symptoms. Contact made with patient: No - Left message Hello my name is Dinorah Posada RN your Treating Engineer from the [facility] I am calling today for your bi-weekly check in. I am sorry I missed your call. I will reach out to you again tomorrow. (if the third call I will reach out to you again next week) Enter next patient outreach date forth following day using the Track Pt Outreach. End outreach. Dinorah Posada RN February 22, 2022 9:13 AM documented in this encounterEast Liverpool City Hospital04-08-2022 Miscellaneous Notes* Telephone Encounter - Jana Lara RP - 02/12/2022 4:13 PM EDT Appt cancelled per patient request. Jana Lara, PharmD, BCACP Primary Care Clinical Pharmacist [facility] * Telephone Encounter - Olga Styles APRN.CNS - 02/12/2022 4:06 PM EDT Ok, monitor for discharge and reschedule as appropriate. * Telephone Encounter - Jazmin Tejeda LPN - 02/12/2022 11:57 AM EDT EDGAR Samuel for pt called to let you know pt fell on 02-09-22 and fractured his hip. Was at [facility] then transferred to [facility]. He is still there as of 02-12-22 and not sure what is goingto be done next. He has an phone apt scheduled with you Jana on 02-16-22 and they are cancelling this for now. If you want you can reach Bob Matthew at [phone]. Sending to PCP as FYI. Jazmin Tejeda LPN [facility] History of Present illness Narrative* Albino Copeland RN - 02/05/2022 4:26 PM EDT INSIGHT CDM TELEPHONIC OUTREACH Provider Action/FYI: Call to Pt left a message to verify CHF/ Asthma symptom status. Contact made with patient: No - Left message Scout my name is Dinorah Posada RN your Treating Engineer [facility] the [facility] I am calling today for your bi-weekly check in. I am sorry I missed your call. I will reach out to you again tomorrow. (if the third call I will reach out to you again next week) Enter next patient outreach date forthe following using the Track Pt Outreach. End outreach. Dinorah Posada RN February 05, 2022 4:26 PM * Albino Copeland RN - 02/04/2022 8:35 AM EDT INSIGHT CDM TELEPHONIC OUTREACH Provider Action/FYI: Call to Pt left a message to verify CHF/ Asthma symptom status. Contact made with patient: No - Left message Hello my name is Dinorah Posada RN your Treating Engineer [facility] the [facility] I am calling today for your bi-weekly check in. I am sorry I missed your call. I will reach out to you again tomorrow. (if the third call I will reach out to you again next week) Enter next patient outreach date forthe following using the Track Pt Outreach. End outreach. : Dinorah Posada RN February 04, 2022 8:35 AM documented in this [facility] Miscellaneous Notes* Telephone Encounter - Jana Lara RPh - 02/03/2022 4:41 PM EDT Called and spoke with pharmacy as pt reports not able to sweet pickle maker new meter/test strips. Was only given lancets at pharmacy. Pharmacist states glucometer and test strip rx both need sig adjusted for medicare criteria. Resentcorrected scripts. The following approved medication requests have [...] LARA, PharmD, BCACP Primary Care Clinical Pharmacist [facility] documented in this encounter[facility]03-29-[facility] Miscellaneous Notes* Telephone Encounter - Dot Escoto LPN - 02/02/2022 4:13 PM EDT Khoi is asking for directions on glucose meter. Dot Escoto LPN * Telephone Encounter - Reina Mcgee LPN - 02/02/2022 4:10 PM EDT Khoi with [facility] calls to report the directions on lancets have twice daily and as needed. Khoi reports that Medicare does not allow "as needed". Rx has to say specific number of [...] patient. Reina Mcgee LPN documented in this encounterEast [facility]-29-[facility] History of Present illness Narrative* Jana Lara RPh - 02/02/2022 3:00 PM EDT Primary Care Pharmacy Visit REASON FOR CONSULT: DM GOALS: A1c < 8% CONSULTING PROVIDER: Olga Styles APRN.QUALITY CONTROL SUPERVISOR Date of Consult: 01/08/22 Steph Baumann is a 71 year old male presenting for initial visit: This initial consult was conducted by telephone with the patient where the consult agreement was explained. The patient may decline or cancel the agreement at any time. After consideration, the patient consented to the pharmacyconsult agreement and agreed to allow medications be collaboratively managed by a pharmacist. Last seen by Olga Styles APRN.QUALITY CONTROL SUPERVISOR on 01/12/22. At last QUALITY CONTROL SUPERVISOR appt, [facility] At that visit provider [...] not present. Adherence: denies missed doses. Pharmacy: [facility]: [facility] System: ACTIVE PROBLEM LIST Brain Tumor (Hcc) [...] Metformin Diarrhea Even low dose caused diarrhea Mason [Hydrocodone-* Intolerance Hallucination Medication List Medication Directions Comments Action/Plan albuterol HFA (VENTOLIN HFA) 90 mcg/actuation inhaler Inhale 2 Puffs as instructed every 6 hours asneeded for wheezing/shortness of breath. PRN apixaban (ELIQUIS) 5 mg tab(s) Take by mouth twice daily. Taking as directed aspirin, enteric coated (ECOTRIN LOW STRENGTH) 81 mg EC tablet Take 1 tablet by mouth once daily. Not taking, states it was discontinued d/t on Eliquis Removed from list blood sugar diagnostic (BLOOD GLUCOSE TEST) test strip Check 2 to 3 times daily as directed. E11.9,Z79.4 Insulin: yes blood sugar diagnostic (FREESTYLE TEST) [...] Taking as directed flash glucose scanning reader (BerylliumSTYLE HERMINIO 2 READER) Check sugars as directed at least 4 times daily. E11.65, Z79.4 Patient not taking: Reported on 04/08/2021 flash glucose sensor (FREESTYLE HERMINIO 2 SENSOR) kit Change every 14 days. E11.65, Z79.4 Patient not taking: Reported on 04/08/2021 insulin glargine (BASAGLAR KWIKPEN U-100 INSULIN) 100 unit/mL (3 mL) Inject 29 Units subcutaneouslydaily at bedtime. Adjust dose as directed Taking as directed insulin needles, DISPOSABLE, (PEN NEEDLE) 31 gauge x 5/16" Use one needle per dose. One per day. DXE11.9 Insulin Yes lancets (FREESTYLE LANCETS) 28 gauge [...] 93 03/26/2021 The ASCVD Risk score (Onel SUPA Jr., et al., 2013) failed to calculate for the following reasons: The patient has a prior UT or stroke diagnosis Albumin/Creat Ratio (mg/g) Date Value 11/06/2019 24 PHARMACOTHERAPY ASSESSMENT/PLAN: 1. Controlled type 2 diabetes mellitus without complication, with long-term current use of insulin ([facility]) - ICD9: 250.00, V58.67, ICD10: [...] medications. Will contact external cardiology provider - [facility] for clarification. See telephone encounter for medication clarification Follow up: Patient is scheduled to see PCP on 03/29/22. Patient to follow up with PharmD on 02/16/22. Patient verbalized understanding of instructions. Jana Lara, Butch, BCACP Primary Care Clinical Pharmacist [facility] The majority of the pharmacy visit (> 50%) was spent counseling and/or coordinating care for thepatient. [Face to Face] time was 57 minutes. documented in this encounterEast [facility]07-10-[facility]21 Miscellaneous Notes* Telephone Encounter - Manuel Beebe MD - 05/16/2021 9:13 PM EDT Below noted. Grateful for the FYI from [facility]. Per our scales, he had lost weight from January of this year to February. Stable within 5 pounds since February. Rapid weight loss from January to February from diuresis in hospital (acute CHF and ascites). Looking farther back, it looks like his "dry weight" is around 150s. Last 10 Encounter Wt [...] (158 lb) 09/28/2019 82.6 kg (182 lb) * Telephone Encounter - Roxanne Gupta RN - 05/08/2021 9:24 AM EDT [facility]'s weight is 147 pounds today. She believes patient may have lost 30 pounds since January. Our weight checks: 04-08-21: 151 # 04-03-21: 148 # 02-13-21: 152 # 01-08-21: 173 # 05-28-20: 171 # documented in this encounterEast [facility]03-26-[facility] History of Past illness Narrative* Problem [...] of this encounter (statuses as of 10/04/2022) [facility] of Past illness Narrative* Problem [...] of this encounter (statuses as of 10/11/2022) [facility] of Past illness Narrative* Problem [...] of this encounter (statuses as of 10/19/2022) [facility] of [facility] illness Narrative* Problem [...] of this encounter (statuses as of 11/24/2022) [facility] of Past illness Narrative* Problem [...] of this encounter (statuses as of 12/23/2022) [facility] of [facility] illness Narrative* Problem [...] of this encounter (statuses as of 01/03/2023) [facility] of [facility] illness Narrative* Problem [...] of this encounter (statuses as of 01/05/2023) [facility] Narrative* Problem [...] of this encounter (statuses as of 02/02/2023) [facility] Narrative* Problem [...] of this encounter (statuses as of 02/10/2023) [facility] of [facility] illness Narrative* Problem [...] of this encounter (statuses as of 02/25/2023) [facility] Narrative* Problem [...] of this encounter (statuses as of 03/10/2023) [facility] Narrative* Problem [...] of this encounter (statuses as of 03/10/2023) [facility] Narrative* Problem [...] of this encounter (statuses as of 03/15/2023) [facility] Narrative* Problem [...] of this encounter (statuses as of 04/11/2023) [facility] illness Narrative* Problem [...] of this encounter (statuses as of 04/12/2023) [facility] Narrative* Problem [...] of this encounter (statuses as of 04/13/2023) [facility] illness Narrative* Problem [...] of this encounter (statuses as of 04/13/2023) [facility] Narrative* Problem [...] of this encounter (statuses as of 04/13/2023) [facility] Narrative* Problem [...] of this encounter (statuses as of 04/22/2023) [facility] illness Narrative* Problem [...] of this encounter (statuses as of 04/25/2023) [facility] illness Narrative* Problem [...] of this encounter (statuses as of 06/28/2023) [facility] illness Narrative* Problem [...] of this encounter (statuses as of 07/22/2023) [facility] Narrative* Problem [...] of this encounter (statuses as of 08/13/2023) [facility] Narrative* Problem [...] of this encounter (statuses as of 09/06/2023) [facility] Narrative* Problem [...] of this encounter (statuses as of 09/15/2023) [facility] Narrative* Problem [...] of this encounter (statuses as of 09/15/2023) [facility] Narrative* Problem [...] of this encounter (statuses as of 09/21/2023) [facility] Narrative* Problem [...] of this encounter (statuses as of 09/23/2023) [facility] Narrative* Problem [...] of this encounter (statuses as of 09/30/2023) [facility] Narrative* Problem [...] of this encounter (statuses as of 12/13/2023) [facility] Narrative* Problem [...] of this encounter (statuses as of 12/20/2023) [facility] Narrative* Problem [...] of this encounter (statuses as of 12/22/2023) [facility] Narrative* Problem [...] of this encounter (statuses as of 12/22/2023) [facility] Narrative* Problem [...] of this encounter (statuses as of 12/27/2023) [facility] Narrative* Problem [...] as of this encounter (statuses as of 01/06/2024) [facility] Narrative* Problem [...] as of this encounter (statuses as of 01/19/2024) [facility] Evaluation note* Diagnosis Onset Date Resolution Status Cirrhosis acute [id number] acute 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 October 12, 2019 [facility] onic Chronic combined systolic an d diastolic CHF (congestive heart failure) chronic Longstanding persistent atrial fibrillation chronic Nonischemic cardiomyopathy c hronic Right ventricular systolic dysfunction resolved 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 October 12, 2019 [facility] onic Chronic combined systolic an d diastolic CHF (congestive heart failure) chronic Longstanding persistent atrial fibrillation chronic Nonischemic cardiomyopathy c hronic 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 Right ventricular systolic dysfunction resolved 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 October 12, 2019 [facility] onic Chronic combined systolic an d diastolic CHF (congestive heart failure) chronic Longstanding persistent atrial fibrillation chronic Nonischemic cardiomyopathy c hronic 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 Right ventricular systolic dysfunction resolved Cirrhosis acute 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 October 12, 2019 [facility] onic Chronic combined systolic an d diastolic CHF (congestive heart failure) chronic Essential (primary) hypertension chronic Nonischemic cardiomyopathy c hronic 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 October 12, 2019 chr onic Chronic combined systolic an d diastolic CHF (congestive heart failure) chronic Longstanding persistent atrial fibrillation chronic Nonischemic cardiomyopathy c hronic 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 [id number] acute [id number] acute [facility] Work Phone: 1(570) 599-521512-06-2019 Evaluation note* Diagnosis Onset Date Resolution Status 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 October 12, 2019 chr onic Chronic combined systolic an d diastolic CHF (congestive heart failure) chronic Longstanding persistent atrial fibrillation chronic Nonischemic cardiomyopathy c hronic Right ventricular systolic dysfunction resolved 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 October 12, 2019 chr onic Chronic combined systolic an d diastolic CHF (congestive heart failure) chronic Longstanding persistent atrial fibrillation chronic Nonischemic cardiomyopathy c hronic 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 Right ventricular systolic dysfunction resolved 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 October 12, 2019 chr onic Chronic combined systolic an d diastolic CHF (congestive heart failure) chronic Longstanding persistent atrial fibrillation chronic Nonischemic cardiomyopathy c hronic 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 Right ventricular systolic dysfunction resolved Cirrhosis acute 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 October 12, 2019 chr onic Chronic combined systolic an d diastolic CHF (congestive heart failure) chronic Essential (primary) hypertension chronic Nonischemic cardiomyopathy c hronic 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 October 12, 2019 chr onic Chronic combined systolic an d diastolic CHF (congestive heart failure) chronic Longstanding persistent atrial fibrillation chronic Nonischemic cardiomyopathy c hronic 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 [id number] acute [id number] acute Asthma acute Atrial fibrillation acute Benign prostate hyperplasia acute Cirrhosis of liver acute Closed right hip fracture ac huslia Debility acute Diabetes mellitus acute Gastroesophageal reflux disease acute FARIAS (nonalcoholic steatohepatitis) acute Prostate cancer acute Seizure disorder acute Stroke acute Chronic kidney disease, stage 3a chronic Chronic systolic congestive heart failure chronic Prostate cancer acute [id number] acute [id number] acute [facility] Work Phone: 1(515) 187-241612-06-2019 Evaluation note* Diagnosis Onset Date Resolution Status 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 October 12, 2019 chr onic Chronic combined systolic an d diastolic CHF (congestive heart failure) chronic Longstanding persistent atrial fibrillation chronic Nonischemic cardiomyopathy c hronic Right ventricular systolic dysfunction resolved 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 October 12, 2019 chr onic Chronic combined systolic an d diastolic CHF (congestive heart failure) chronic Longstanding persistent atrial fibrillation chronic Nonischemic cardiomyopathy c hronic 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 Right ventricular systolic dysfunction resolved 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 October 12, 2019 chr onic Chronic combined systolic an d diastolic CHF (congestive heart failure) chronic Longstanding persistent atrial fibrillation chronic Nonischemic cardiomyopathy c hronic 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 Right ventricular systolic dysfunction resolved Cirrhosis acute 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 October 12, 2019 chr onic Chronic combined systolic an d diastolic CHF (congestive heart failure) chronic Essential (primary) hypertension chronic Nonischemic cardiomyopathy c hronic 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 October 12, 2019 [facility] onic Chronic combined systolic an d diastolic CHF (congestive heart failure) chronic Longstanding persistent atrial fibrillation chronic Nonischemic cardiomyopathy c hronic 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 [id number] acute [id number] acute Asthma acute Atrial fibrillation acute Benign prostate hyperplasia acute Cirrhosis of liver acute Closed right hip fracture ac [place] Debility acute Diabetes mellitus acute Gastroesophageal reflux disease acute FARIAS (nonalcoholic steatohepatitis) acute Prostate cancer acute Seizure disorder acute Stroke acute Chronic kidney disease, stage 3a chronic Chronic systolic congestive heart failure chronic Prostate cancer acute [id number] acute [id number] acute [id number] acute [facility] Work Phone: 1(393) 809-761912-06-2019 Evaluation note* Diagnosis Onset Date Resolution Status 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 October 12, 2019 [facility] onic Chronic combined systolic an d diastolic CHF (congestive heart failure) chronic Longstanding persistent atrial fibrillation chronic Nonischemic cardiomyopathy c hronic 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 Right ventricular systolic dysfunction resolved 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 October 12, 2019 [facility] onic Chronic combined systolic an d diastolic CHF (congestive heart failure) chronic Longstanding persistent atrial fibrillation chronic Nonischemic cardiomyopathy c hronic 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 Right ventricular systolic dysfunction resolved Cirrhosis acute 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 October 12, 2019 [facility] on[facility] Chronic combined systolic an d diastolic CHF (congestive heart failure) chronic Essential (primary) hypertension chronic Nonischemic cardiomyopathy c hronic 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 October 12, 2019 [facility] onic Chronic combined systolic an d diastolic CHF (congestive heart failure) chronic Longstanding persistent atrial fibrillation chronic Nonischemic cardiomyopathy c hronic 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 [id number] acute [id number] acute Atrial fibrillation acute Benign prostate hyperplasia acute Cirrhosis of liver acute Debility acute Diabetes mellitus acute Gastroesophageal reflux disease acute FARIAS (nonalcoholic steatohepatitis) acute Prostate cancer acute Seizure disorder acute Stroke acute Chronic kidney disease, stage 3a chronic Asthma resolved Chronic systolic congestive heart failure resolved Closed right hip fracture re solved Prostate cancer acute [id number] acute [id number] acute [id number] acute Acute heart failure with red uced ejection fraction and diastolic dysfunction acute Chest pain acute Acute and chronic respirator y failure with hypoxia chronic [facility] Work Phone: 1(788) 884-964212-06-2019 Evaluation note* Diagnosis Onset Date Resolution Status 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 October 12, 2019 [facility] onic Chronic combined systolic an d diastolic CHF (congestive heart failure) chronic Longstanding persistent atrial fibrillation chronic Nonischemic cardiomyopathy c hronic 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 Right ventricular systolic dysfunction resolved 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 October 12, 2019 chr onic Chronic combined systolic an d diastolic CHF (congestive heart failure) chronic Longstanding persistent atrial fibrillation chronic Nonischemic cardiomyopathy c hronic 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 Right ventricular systolic dysfunction resolved Cirrhosis acute 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 October 12, 2019 [facility] on[facility] Chronic combined systolic an d diastolic CHF (congestive heart failure) chronic Essential (primary) hypertension chronic Nonischemic cardiomyopathy c hronic 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 October 12, 2019 [facility] onic Chronic combined systolic an d diastolic CHF (congestive heart failure) chronic Longstanding persistent atrial fibrillation chronic Nonischemic cardiomyopathy c hronic 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 [id number] acute [id number] acute Atrial fibrillation acute Benign prostate hyperplasia acute Cirrhosis of liver acute Debility acute Diabetes mellitus acute Gastroesophageal reflux disease acute FARIAS (nonalcoholic steatohepatitis) acute Prostate cancer acute Seizure disorder acute Stroke acute Chronic kidney disease, stage 3a chronic Asthma resolved Chronic systolic congestive heart failure resolved Closed right hip fracture re solved Prostate cancer acute [id number] acute [id number] acute [id number] acute Acute heart failure with red uced ejection fraction and diastolic dysfunction acute Chest pain acute Acute and chronic respirator y failure with hypoxia chronic 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 October 12, 2019 [facility] Chronic combined systolic an d diastolic CHF (congestive heart failure) chronic Longstanding persistent atrial fibrillation chronic Nonischemic cardiomyopathy c hronic 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 [facility] Work Phone: 1([phone]) 201-969112-06-2019 Evaluation note* Diagnosis Onset Date Resolution Status Chest pain resolved 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 October 12, 2019 [facility] onic Chronic combined systolic an d diastolic CHF (congestive heart failure) chronic Longstanding persistent atrial fibrillation chronic Nonischemic cardiomyopathy c hronic 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 Abnormality of gait and mobility chronic History of CVA (cerebrovascular accident) chronic Polyneuropathy chronic [id number] acute Abnormality of gait and mobility chronic Absent pedal pulses chronic History of CVA (cerebrovascular accident) chronic Polyneuropathy chronic [facility] Work Phone: [phone]) 983-650312-06-2019 Evaluation note* Diagnosis Onset Date Resolution Status 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 October 12, 2019 [facility] onic Chronic combined systolic an d diastolic CHF (congestive heart failure) chronic Longstanding persistent atrial fibrillation chronic Nonischemic cardiomyopathy c hronic 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 Parkinson's disease acute [id number] acute Abnormality of gait and mobility chronic Absent pedal pulses chronic History of CVA (cerebrovascular accident) chronic Polyneuropathy chronic [id number] acute [facility] Work Phone: 1(678) 435-319312-06-2019 Evaluation note* Diagnosis Onset Date Resolution Status [id number] acute 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 October 12, 2019 [facility] onic Longstanding persistent atrial fibrillation chronic Nonischemic cardiomyopathy c hronic 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 October 12, 2019 [facility] onic Chronic combined systolic an d diastolic CHF (congestive heart failure) chronic Longstanding persistent atrial fibrillation chronic Nonischemic cardiomyopathy c hronic 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 Adult failure to thrive acut e VALENCIA (acute kidney injury) ac [place] Generalized weakness acute Transient hypotension acute VALENCIA (acute kidney injury) ac [place] Elevated troponin acute Generalized weakness acute [facility] Work Phone: [phone]) 956-601212-06-2019 Evaluation note* Diagnosis Onset Date Resolution Status [id number] acute 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 October 12, 2019 [facility] onic Longstanding persistent atrial fibrillation chronic Nonischemic cardiomyopathy c hronic 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 October 12, 2019 chr onic Chronic combined systolic an d diastolic CHF (congestive heart failure) chronic Longstanding persistent atrial fibrillation chronic Nonischemic cardiomyopathy c hronic 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 Adult failure to thrive acut e VALENCIA (acute kidney injury) ac [place] Generalized weakness acute Transient hypotension acute Adult failure to thrive acut e VALENCIA (acute kidney injury) ac [place] Elevated troponin acute Generalized weakness acute [facility] Work Phone: [phone]) 229-583312-06-2019 Evaluation note* Diagnosis Onset Date Resolution Status 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 October 12, 2019 chr onic Longstanding persistent atrial fibrillation chronic Nonischemic cardiomyopathy c hronic 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 October 12, 2019 [facility] on[facility] Chronic combined systolic an d diastolic CHF (congestive heart failure) chronic Longstanding persistent atrial fibrillation chronic Nonischemic cardiomyopathy c hronic 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 Adult failure to thrive acut e Generalized weakness acute Transient hypotension acute VALENCIA (acute kidney injury) re solved Adult failure to thrive acut e Elevated troponin acute Generalized weakness acute VALENCIA (acute kidney injury) re solved [facility] Work Phone: 1([phone]) [phone] Evaluation note* Diagnosis Onset Date Resolution Status Atrial fibrillation acute Cirrhosis acute 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 October 12, 2019 [facility] Chronic combined systolic an d diastolic CHF (congestive heart failure) chronic Essential (primary) hypertension chronic Nonischemic cardiomyopathy c hronic Acute alteration in mental status acute Acute dehydration acute Elevated troponin acute Hyperbilirubinemia acute Leukocytosis acute Nausea & vomiting acute Right hip pain acute VALENCIA (acute kidney injury) re solved Toxic metabolic encephalopathy resolved [id number] acute [facility] Work Phone: 1([phone]) 200-538812-06-2019 Evaluation note* Diagnosis Onset Date Resolution Status Atrial fibrillation acute Cirrhosis acute 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 October 12, 2019 [facility] Chronic combined systolic an d diastolic CHF (congestive heart failure) chronic Essential (primary) hypertension chronic Nonischemic cardiomyopathy c hronic [facility] Work Phone: 1([phone]) 763-263404-20-2017 History of Past illness Narrative* Problem Noted [...] of this encounter (statuses as of 02/02/2022) [facility] History of Past illness Narrative* Problem [...] of this encounter (statuses as of 02/03/2022) [facility] History of Past illness Narrative* Problem [...] of this encounter (statuses as of 02/05/2022) [facility] History of Past illness Narrative* Problem [...] of this encounter (statuses as of 02/09/2022) [facility] History of Past illness Narrative* Problem [...] of this encounter (statuses as of 02/15/2022) [facility] History of Past illness Narrative* Problem [...] of this encounter (statuses as of 02/24/2022) [facility] History of Past illness Narrative* Problem [...] of this encounter (statuses as of 02/26/2022) [facility] History of Past illness Narrative* Problem [...] of this encounter (statuses as of 03/05/2022) [facility] History of Past illness Narrative* Problem [...] of this encounter (statuses as of 03/16/2022) [facility] History of Past illness Narrative* Problem [...] of this encounter (statuses as of 03/26/2022) [facility] History of Past illness Narrative* Problem [...] of this encounter (statuses as of 04/01/2022) [facility] History of Past illness Narrative* Problem [...] of this encounter (statuses as of 04/06/2022) [facility] of Past illness Narrative* Problem [...] of this encounter (statuses as of 04/08/2022) [facility] History of Past illness Narrative* Problem [...] of this encounter (statuses as of 04/16/2022) [facility] of Past illness Narrative* Problem [...] of this encounter (statuses as of 04/23/2022) [facility] History of Past illness Narrative* Problem [...] of this encounter (statuses as of 05/04/2022) [facility] of Past illness Narrative* Problem [...] of this encounter (statuses as of 05/13/2022) [facility] of Past illness Narrative* Problem [...] of this encounter (statuses as of 05/19/2022) [facility] of Past illness Narrative* Problem [...] of this encounter (statuses as of 05/20/2022) [facility] of Past illness Narrative* Problem [...] of this encounter (statuses as of 2022) [facility] of Past illness Narrative* Problem [...] of this encounter (statuses as of 06/15/2022) [facility] Past illness Narrative* Problem [...] of this encounter (statuses as of 06/24/2022) [facility] Past illness Narrative* Problem [...] of this encounter (statuses as of 07/22/2022) [facility] Past illness Narrative* Problem [...] of this encounter (statuses as of 07/29/2022) [facility] Past illness Narrative* Problem [...] of this encounter (statuses as of 08/13/2022) [facility] Narrative* Problem [...] of this encounter (statuses as of 09/02/2022) [facility] Narrative* Problem [...] of this encounter (statuses as of 09/03/2022) [facility] Past [facility] Narrative* Problem [...] of this encounter (statuses as of 09/06/2022) [facility] Past illness Narrative* Problem [...] of this encounter (statuses as of 09/15/2022) [facility] Past illness Narrative* Problem [...] of this encounter (statuses as of 09/17/2022) [facility] Past illness Narrative* Problem [...] of this encounter (statuses as of 09/17/2022) [facility] Orell[facility] June 26, 2023 9:31am Note Date/Time June 26, 2023 9: 23am [facility] Medical Records Department [address] [place] [address] Transfer to [facility] MR#: [id number] Acct: [id number] Name: STEPH BAUMANN Rep #:[id number] : 1950 73 From: Norris Quarles PCP: Dr. Manuel Beebe MD Status:AD M IN Certification of patient admission REQUIRED AT TIME OF ADMISSION. I CERTIFY THAT POST-HOSPITAL ECF SERVICES ARE REQUIRED TO BE GIVEN ON AN IN-PATIENT BASIS BECAUSE OF THE ABOVE NAMED PATIENT'S NEED FOR FPC CARE ON A CONTINUING BASIS FOR THE CONDITION(S) FOR WHICH HE/SHE WAS RECEIVING IN-PATIENT HOSPITAL SERVICES PRIOR TO HIS/HER TRANSFER TO THE [facility]. 06/26/23 0931<Electronically signed by Norris Orellana MD> Diet Diet Order/Speech Therapy: 06/21/23 19:34 Diabetic [Diet: Consistent Carb - Calorie Controlled] Is pt able to select menu?: No How many daily calories?: 1800 calorie Routine Orders/Code Status Suppository Type: Dulcolax 10mg Suppository Frequency: Daily PRN Routine Lab Work: BMP (in 1 week) Code Status: Full Code Therapies Weight Bearing: Weight bearing as tolerated Extremity Affected:: Right Lower Physical Therapy: Eval and Treat Occupational Therapy: Eval and Treat Speech Therapy: Eval and Treat Problem/Diagnosis (1) Nausea & vomiting: Status: Acute Code(s): R11.2 - Nausea with vomiting, unspecified (2) Toxic metabolic encephalopathy: Status: Acute Code(s): G92.8 - Other toxic encephalopathy (3) Elevated troponin: Status: Acute Code(s): R77.8 - Other specified abnormalities of plasma proteins (4) Acute dehydration: Status: Acute Code(s): E86.0 - Dehydration (5) VALENCIA (acute kidney injury): Status: Acute Code(s): N17.9 - Acute kidney failure, unspecified (6) Leukocytosis: Status: Acute Code(s): D72.829 - Elevated white blood cell count, unspecified (7) Hyperbilirubinemia: Status: Acute Code(s): E80.6 - Other disorders of bilirubin metabolism Plan 1. VALENCIA on CKD stage IIIa -Baseline serum creatinine appears to be between 1.3 and 1.5 and measured to be 1.3 the day prior to presentation -Creatinine was 2.33 at the time of admission and now down to 1.82 today -Continue to hold diuretics(acetazolamide and Bumex) -Hold lisinopril -Avoid nephrotoxins as able -Continue gentle hydration at 75 cc an hour for another liter -Proceeding carefully with hydration due to poor EF at 25% -Repeat BMP shows improvement in creatinine 1.44 from 2.33. Looks patient VALENCIA has resolved. Creatinine at baseline 06/24: Creatinine is 1.1. BUN 22. 06/25: VALENCIA resolved. BUNs/creatinine 17/1.18. 2. Leukocytosis -Left shift is present -Chest x-ray is unremarkable -UA is not consistent with infection -COVID testing was negative -Recent C. difficile on 06/14/2023 was unremarkable -Likely reactive due to the above and will repeat CBC in a.m. -Hold on empiric antibiotics at this time 06/19: Leukocytosis resolved. 3. Toxic/metabolic encephalopathy although suspicion of hepatic encephalopathy as patient has cirrhosis. Patient is intermittently confused and disoriented sometimes fearful. Lactulosedose increased to 30 mL every 6 hours 06/25 continue lactulose dose. Patient had soft bowel movement today. 4. Right hip pain -Hip and pelvis x-ray reviewed. Nondisplaced fracture destructive or sclerotic lesion. Right hip prosthesis with no imaging evidence of loosening. ESR 24. CRP 76. -Continue Tylenol -Add lidocaine patch 06/24: Ortho surgery Dr. Jain consult reviewed and appreciated. X-ray was negative therefore further CT scan was done which also does not show evidence offracture. Therefore WBAT, PT and OT and orthopedic surgery signed off Hyperbilirubinemia -Bilirubin is not typically elevated and 1.6 today -May be reactive from the above as LFTs are normal -Alk phos is slightly elevated at 123 -If having right upper quadrant pain will consider ultrasound -Patient likely not a surgical candidate if there is any issue and would likely need a PERC drain to decompress the gallbladder 5. Troponin elevation -This appears to be chronic and is actually less than it has been previously -Patient with extremely poor ejection fraction -No chest pain present -No need for further work-up at this time. Does not seem to be ACS related 6. History of nonischemic cardiomyopathy -History of biventricular ICD/pacer -Currently holding diuretics due to dehydration -We will reinitiate when medically appropriate 7. CAD/HTN/persistent atrial fibrillation/WHO group 2 pulmonary hypertension -Continue apixaban 5 mg p.o. twice daily -Continue carvedilol 3.125 mg daily -Hold lisinopril -Monitor on telemetry -Continue to monitor blood pressure with dehydration -Diuretics on hold due to VALENCIA 8. History of cirrhosis -Continued outpatient follow-up -Continue lactulose daily 9. Parkinson's disease -Continue home carbidopa/levodopa 10. GERD -Continue home PPI DM-2 -Hold home Trulicity -Hold home glargine until p.o. intake is more established -SSI -Accu-Cheks as ordered 11. History of prostate cancer -Has completed radiation treatments 12. Chronic low back pain -Continue home pain medication regimen once mental status is improved DVT prophylaxis -Continue apixaban CODE STATUS Allergies/Procedures Done in Hospital Allergies acetaminophen Adverse Reaction (Verified 06/21/23 18:03) Other gi issuses oxycodone Adverse Reaction (Verified 06/21/23 12:27) hallucinations Type of Care/Length of Stay Estimated LOS: Convalescent Care Less Than 30 days Type of Care Needed: Skilled Rehab Potential: Good Prognosis: Good Additional Orders/Day of Discharge Day of Discharge: 06/26/23 Dietary and Speech Recommendations Dietitian Recommendations/Changes: Continue current diet order of carb- controlled. Expect energy and protein needs to be met with diet. If meal intake becomes <50%, will consider oral nutrition supplement for additional energy and protein. Discharge Plan Admission Admit Date/Time: 06/21/23 17:04 Attending Provider: Norris Orellana Primary Care Provider: Manuel Beebe Consulting Providers: Maximo Addison; Quynh Araya; Chandana Jain Instructions Additional Instructions / Restrictions: Patient might need prior authorization of Xifaxan if not covered by insurance. Follow-up in GI clinic. Discharge Orders/Prescriptions Prescriptions: New Xifaxan 550 mg Tablet 550 mg PO BID Qty: 0 0RF lactulose 20 gram/30 mL Solution 20 g PO TID Qty: 2880 2RF Rx Instructions: Hold if more than 3 bowel movements per day insulin lispro [Humalog KwikPen Insulin] 100 unit/mL Insulin Pen See Protocol subcut ACHS Qty: 0 0RF Protocol: 3. Sliding Scale Insulin Med Dosing Condition: 150-189 mg/dl = 1 unit Condition: 190-229 mg/dl = 2 units Condition: 230-269 mg/dl = 3 units Condition: 270-309 mg/dl = 4 units Condition: 310-349 mg/dl = 5 units Condition: 350-399 mg/dl = 6 units Condition: 400-449 mg/dl = 7 units Condition: Greater than 449 call physician Protocol Text: - Use for Total Daily Dose of Insulin 37-55 units - Obsese, infected, or steroid patients MEDIUM DOSING ALGORITHIM Remove Patch 1 patch topical DAILY@2200 Qty: 0 0RF potassium, sodium phosphates 280-160-250 mg Powder In Packet 1 packet PO TID 3 Days Qty: 9 0RF Continued bicalutamide [Casodex] 50 mg tablet 50 mg PO DAILY acetazolamide 250 mg tablet 250 mg PO BID docusate sodium 100 mg capsule 100 mg PO BID carbidopa-levodopa 25-100 mg tablet 1 tab PO TID multivitamin Tablet 1 tab PO DAILY carvedilol 3.125 mg tablet 3.125 mg PO BID Eliquis 5 mg tablet 5 mg PO BID dextrose [Glucose Gel] 40 % Gel 15 g PO Q15M PRN (Reason: Hypoglycemia) Rx Instructions: until symptoms of low blood sugar are controlled bisacodyl 10 mg suppository 10 mg MA DAILY PRN (Reason: constipation) Rx Instructions: insert 1 suppository rectally as needed for constipation x1 per episode if MOM ineffective lactulose 10 gram packet 10 g PO DAILY lidocaine 5 % adhesive patch,medicated 1 patch topical DAILY Rx Instructions: APPLY TO RIGHT HIP TOPICALLY IN THE MORNING FOR PAIN pantoprazole 40 mg tablet,delayed release (DR/EC) 40 mg PO BID sennosides [senna] 8.6 mg tablet 17.2 mg PO QHS Trulicity 1.5 mg/0.5 mL pen injector 1.5 mg subcut FR tramadol 50 mg tablet 50 mg PO Q12H PRN (Reason: LOWER BACK PAIN) 7 Days Qty: 7 0RF Changed bumetanide 2 mg tablet 1 mg PO DAILY PRN (Reason: leg swelling) Qty: 30 0RF Patient Comments: PER ECF ORDER SUMMARY REPORT, GIVE 2.5 MG BY MOUTH ONCE DAILY IN THE MORNING insulin glargine 100 UNIT/ML insulin pen 10 unit subcut DAILY Qty: 15 2RF Rx Instructions: Hold if glucose less than 130 mg/dl baclofen 20 mg tablet 10 mg PO TID PRN (Reason: BACK spasm) Qty: 90 5RF Held lisinopril 20 mg tablet 20 mg PO DAILY Hold Instructions: Hold for 7 days and repeat BMP. If blood pressure is high more than 140 mmHg, resume at lower dose 5 mg daily. potassium chloride 20 mEq tablet extended release 20 meq PO DAILY Hold Instructions: Hold while taking Neutra-Phos Discontinued aluminum-magnesium hydroxide 225-200 mg/5 mL suspension 30 ml PO Q4H PRN tramadol 50 mg tablet 50 mg PO Q6H PRN (Reason: RIGHT HIP PAIN) Referrals / Follow Up: Manuel Beebe MD [Primary Care Provider] - Within 2 Weeks FriendArmando DO [Med Staff - Active Staff] - Within 1 Month (For cirrhosis.) Disposition Disposition (needs filled in before D/C Order can be placed): [facility]ust[facility] Facility 06/26/23 0931 <Electronically signed by Norris Orellana MD> Cosigner Signature (if applicable): CC: Dr. Quynh Araya DO; Dr. Manuel Beebe MD; Dr. Maximo Addison MD; Dr. Chandana Jain MD ~ [facility] Work Phone: Discharge summary Author Norris Orellana [facility] June 26, 2023 9:39am Note Date/Time June 26, 2023 9: 39am [facility] Medical Records Department [address] [place] [address] Discharge Summary 06/26/23 0931 MR#: [id number] Acct: [id number] Name: STEPH BAUMANN Rep #:[id number] : 1950 73 From: Norris Quarles PCP: Dr. Manuel Beebe MD Status:AD M IN Location: [place] [id number] Providers Date of Admission: 06/21/23 Date of Discharge: 06/26/23 Primary Care Physician: Dr. Manuel Beebe MD Consultations 06/23/23 09:36 Consult: Orthopedics Routine Consulting Provider: Chandana Jain Reason for Consult: Right hip pain s/p past hip replacement EMERGENT Consult: No MD Notified: Yes Date Notified: 06/23/23 Time Notified: 09:36 Method of Notification: Verbal Reason For Visit: VALENCIA Diagnosis Discharge Diagnosis (1) Nausea & vomiting: Status: Acute Code(s): R11.2 - Nausea with vomiting, unspecified (2) Toxic metabolic encephalopathy: Status: Acute Code(s): G92.8 - Other toxic encephalopathy (3) Elevated troponin: Status: Acute Code(s): R77.8 - Other specified abnormalities of plasma proteins (4) Acute dehydration: Status: Acute Code(s): E86.0 - Dehydration (5) VALENCIA (acute kidney injury): Status: Acute Code(s): N17.9 - Acute kidney failure, unspecified (6) Leukocytosis: Status: Acute Code(s): D72.829 - Elevated white blood cell count, unspecified (7) Hyperbilirubinemia: Status: Acute Code(s): E80.6 - Other disorders of bilirubin metabolism Plan 1. VALENCIA on CKD stage IIIa -Baseline serum creatinine appears to be between 1.3 and 1.5 and measured to be 1.3 the day prior to presentation -Creatinine was 2.33 at the time of admission and now down to 1.82 today -Continue to hold diuretics(acetazolamide and Bumex) -Hold lisinopril -Avoid nephrotoxins as able -Continue gentle hydration at 75 cc an hour for another liter -Proceeding carefully with hydration due to poor EF at 25% -Repeat BMP shows improvement in creatinine 1.44 from 2.33. Looks patient VALENCIA has resolved. Creatinine at baseline 06/24: Creatinine is 1.1. BUN 22. 06/25: VALENCIA resolved. BUNs/creatinine 17/1.18. 06/26: Bumex 1 mg daily as needed for leg swelling. Repeat BMP in 1 week. 2. Leukocytosis -Left shift is present -Chest x-ray is unremarkable -UA is not consistent with infection -COVID testing was negative -Recent C. difficile on 06/14/2023 was unremarkable -Likely reactive due to the above and will repeat CBC in a.m. -Hold on empiric antibiotics at this time 06/19: Leukocytosis resolved. 3. Toxic/metabolic encephalopathy , Most likely hepatic encephalopathy as patient has cirrhosis. Patient is intermittently confused and disoriented sometimes fearful. Lactulosedose increased to 30 mL every 6 hours 06/25 continue lactulose dose. Patient had soft bowel movement today. 06/26: Patient is awake alert oriented x3. He is answer to questions and Prompt and instantaneous. Continue lactulose and Xifaxan follow-up with GI. I think patient has hepatic encephalopathy and ammonia is elevated. Tramadol frequencydecreased to twice daily. Baclofen dose decreased to 10 mg as needed for back spasm. Avoid Opioid/Benzodiazepines, neuroleptic medications which can make confusion. Patient also has history of Parkinson disease and might have dementia. Follow-up with neurology Clinic. 4. Right hip pain -Hip and pelvis x-ray reviewed. Nondisplaced fracture destructive or sclerotic lesion. Right hip prosthesis with no imaging evidence of loosening. ESR 24. CRP 76. -Continue Tylenol -Add lidocaine patch 06/24: Ortho surgery Dr. Jain consult reviewed and appreciated. X-ray was negative therefore further CT scan was done which also does not show evidence offracture. Therefore WBAT, PT and OT and orthopedic surgery signed off Hyperbilirubinemia -Bilirubin is not typically elevated and 1.6 today -May be reactive from the above as LFTs are normal -Alk phos is slightly elevated at 123 -If having right upper quadrant pain will consider ultrasound -Patient likely not a surgical candidate if there is any issue and would likely need a PERC drain to decompress the gallbladder 5. Troponin elevation -This appears to be chronic and is actually less than it has been previously -Patient with extremely poor ejection fraction -No chest pain present -No need for further work-up at this time. Does not seem to be ACS related 6. History of nonischemic cardiomyopathy -History of biventricular ICD/pacer -Currently holding diuretics due to dehydration -We will reinitiate when medically appropriate 7. CAD/HTN/persistent atrial fibrillation/WHO group 2 pulmonary hypertension -Continue apixaban 5 mg p.o. twice daily -Continue carvedilol 3.125 mg daily -Hold lisinopril -Monitor on telemetry -Continue to monitor blood pressure with dehydration -Diuretics on hold due to VALENCIA 8. History of cirrhosis -Continued outpatient follow-up -Continue lactulose daily 9. Parkinson's disease -Continue home carbidopa/levodopa 10. GERD -Continue home PPI DM-2 -Hold home Trulicity -Hold home glargine until p.o. intake is more established -SSI -Accu-Cheks as ordered 11. History of prostate cancer -Has completed radiation treatments 12. Chronic low back pain -Continue home pain medication regimen once mental status is improved DVT prophylaxis -Continue apixaban CODE STATUS Medications at Discharge Home Medications bicalutamide 50 mg tablet (Casodex) 50 mg PO DAILY prostate 12/10/21 multivitamin 1 tab PO DAILY supplement 02/19/22 apixaban 5 mg tablet (Eliquis) 5 mg PO BID blood thinner 04/13/23 carvedilol 3.125 mg tablet 3.125 mg PO BID HEART 04/13/23 dextrose 40 % oral gel (Glucose Gel) 15 g PO Q15M PRN Hypoglycemia 04/23/23 acetazolamide 250 mg tablet 250 mg PO BID 06/08/23 carbidopa 25 mg-levodopa 100 mg tablet 1 tab PO TID PARKINSONS 06/08/23 docusate sodium 100 mg capsule 100 mg PO BID CONSTIPATION 06/08/23 lisinopril 20 mg tablet 20 mg PO DAILY BLOOD PRESSURE 06/08/23 potassium chloride 20 mEq tablet,extended release 20 meq PO DAILY SUPPLEMENT 06/08/23 bisacodyl 10 mg rectal suppository 10 mg MA DAILY PRN constipation 06/21/23 dulaglutide 1.5 mg/0.5 mL subcutaneous pen injector (Trulicity) 1.5 mg subcut FRDIABETES 06/21/23 lactulose 10 gram oral packet 10 g PO DAILY CONSTIPATION 06/21/23 lidocaine 5 % topical patch 1 patch topical DAILY RIGHT HIP PAIN 06/21/23 pantoprazole 40 mg tablet,delayed release 40 mg PO BID ACID REFLUX 06/21/23 sennosides 8.6 mg tablet (senna) 17.2 mg PO QHS CONSTIPATION 06/21/23 Remove Patch 1 patch topical DAILY@2200 ##0 06/26/23 baclofen 20 mg tablet 10 mg (1/2 x 20 mg) PO TID PRN BACK spasm #90 tabs 06/26/23 bumetanide 2 mg tablet 1 mg (1/2 x 2 mg) PO DAILY PRN leg swelling #30 tabs 06/26/23 insulin glargine 100 unit/mL (3 mL) subcutaneous pen 10 unit (0.1 mL) subcut DAILY DIABETES #15 mL 06/26/23 insulin lispro 100 unit/mL subcutaneous pen (Humalog KwikPen (U-100) Insulin) See Protocol subcut ACHS #0 mL 06/26/23 lactulose 20 gram/30 mL oral solution 20 g (30 mL) PO TID #2,880 mL 06/26/23 potassium, sodium phosphates 280 mg-160 mg-250 mg oral powder packet 1 packet POTID 3 days #9 ea 06/26/23 rifaximin 550 mg tablet (Xifaxan) 550 mg PO BID #0 tabs 06/26/23 tramadol 50 mg tablet 50 mg PO Q12H PRN LOWER BACK PAIN 7 days #7 tabs 06/26/23 Physical Exam Narrative Seen and examined. Patient is awake alert. He cannot read the wall clock and told me the correct time. His answers to the questions were very prompt and instantaneous. He follows simple commands. Patient can sit up on the bed.He had good bowel movement. Physical exam General: Awake, oriented x3, Cooperative HEENT: Atraumatic, PERRLA, EOMI, Normocephalic Oral: Oral mucosa moist. No Gingival or Mucosal Lesions/ Ulcerations Neck: Supple, No JVD, Negative Carotid Bruits Lungs: Air entry diminished in bilateral lung bases. No crepitation/rhonchi Cardiovascular: Regular rate, Regular Rhythm, Normal S1, Normal S2, systolic murmurs Abdomen: Bowel Sounds Present, Soft, Non Tender, Non-Distended : No renal angle tenderness. No suprapubic tenderness. Extremities: No edema, Capillary Refill Less than 3 Seconds Skin: No rashes, No breakdown Musculoskeletal: No acute/severe tenderness to Palpation of Joints or Extremities including right hip or pelvis. Chronic arthritis. ROM restricted on right hip. Status post right hip prosthesis Neurological: Cranial nerves II-XII grossly intact, DTR 2+/4. No acute focal neurological deficit. Psych/Mental Status: Flat affect Weight / BMI Weight Weight: 169 lb 12.095 oz Body Mass Index (BMI) 25.0 ABG / Lab / Microbiology Data 06/25/23 05:51 06/26/23 04:03 Laboratory: Laboratory Results - last 24 hr 06/25/23 11:41: POC Glucose 139 H 06/25/23 18:04: POC Glucose 144 H 06/26/23 04:03: Sodium 137, Potassium 4.1, Chloride 106, Carbon Dioxide 23.0, Anion Gap 8, BUN 19 H, Creatinine 1.15, Estim Creat Clear Calc 58.92, Est GFR (MDRD) Af Amer 81, Est GFR (MDRD) Non-Af 67, BUN/Creatinine Ratio 16.5, Glucose 167 H, Calcium 9.0, Total Bilirubin 1.00, AST 28, ALT 34, Alkaline Phosphatase 127 H, Ammonia 38.0 H, Total Protein 6.9, Albumin 3.1 L, Globulin 3.8, Albumin/Globulin Ratio 0.8 L Microbiology: Microbiology 06/21/23 13:57 Nasal Secretion SARS-CoV-2 & FLU Antigen (Rapid) - Final Meaningful Use Info Meaningful Use Diagnoses (Choose all that apply): None applicable Discharge Plan Admission Admit Date/Time: 06/21/23 17:04 Attending Provider: Norris Orellana Primary Care Provider: Manuel Beebe Consulting Providers: Maximo Addison; Quynh Araya; Chandana Jain Instructions Additional Instructions / Restrictions: Patient might need prior authorization of Xifaxan if not covered by insurance. Follow-up in GI clinic. Discharge Orders/Prescriptions Prescriptions: New Xifaxan 550 mg Tablet 550 mg PO BID Qty: 0 0RF lactulose 20 gram/30 mL Solution 20 g PO TID Qty: 2880 2RF Rx Instructions: Hold if more than 3 bowel movements per day insulin lispro [Humalog KwikPen Insulin] 100 unit/mL Insulin Pen See Protocol subcut ACHS Qty: 0 0RF Protocol: 3. Sliding Scale Insulin Med Dosing Condition: 150-189 mg/dl = 1 unit Condition: 190-229 mg/dl = 2 units Condition: 230-269 mg/dl = 3 units Condition: 270-309 mg/dl = 4 units Condition: 310-349 mg/dl = 5 units Condition: 350-399 mg/dl = 6 units Condition: 400-449 mg/dl = 7 units Condition: Greater than 449 call physician Protocol Text: - Use for Total Daily Dose of Insulin 37-55 units - Obsese, infected, or steroid patients MEDIUM DOSING ALGORITHIM Remove Patch 1 patch topical DAILY@2200 Qty: 0 0RF potassium, sodium phosphates 280-160-250 mg Powder In Packet 1 packet PO TID 3 Days Qty: 9 0RF Continued bicalutamide [Casodex] 50 mg tablet 50 mg PO DAILY acetazolamide 250 mg tablet 250 mg PO BID docusate sodium 100 mg capsule 100 mg PO BID carbidopa-levodopa 25-100 mg tablet 1 tab PO TID multivitamin Tablet 1 tab PO DAILY carvedilol 3.125 mg tablet 3.125 mg PO BID Eliquis 5 mg tablet 5 mg PO BID dextrose [Glucose Gel] 40 % Gel 15 g PO Q15M PRN (Reason: Hypoglycemia) Rx Instructions: until symptoms of low blood sugar are controlled bisacodyl 10 mg suppository 10 mg MA DAILY PRN (Reason: constipation) Rx Instructions: insert 1 suppository rectally as needed for constipation x1 per episode if MOM ineffective lactulose 10 gram packet 10 g PO DAILY lidocaine 5 % adhesive patch,medicated 1 patch topical DAILY Rx Instructions: APPLY TO RIGHT HIP TOPICALLY IN THE MORNING FOR PAIN pantoprazole 40 mg tablet,delayed release (DR/EC) 40 mg PO BID sennosides [senna] 8.6 mg tablet 17.2 mg PO QHS Trulicity 1.5 mg/0.5 mL pen injector 1.5 mg subcut FR tramadol 50 mg tablet 50 mg PO Q12H PRN (Reason: LOWER BACK PAIN) 7 Days Qty: 7 0RF Changed bumetanide 2 mg tablet 1 mg PO DAILY PRN (Reason: leg swelling) Qty: 30 0RF Patient Comments: PER ECF ORDER SUMMARY REPORT, GIVE 2.5 MG BY MOUTH ONCE DAILY IN THE MORNING insulin glargine 100 UNIT/ML insulin pen 10 unit subcut DAILY Qty: 15 2RF Rx Instructions: Hold if glucose less than 130 mg/dl baclofen 20 mg tablet 10 mg PO TID PRN (Reason: BACK spasm) Qty: 90 5RF Held lisinopril 20 mg tablet 20 mg PO DAILY Hold Instructions: Hold for 7 days and repeat BMP. If blood pressure is high more than 140 mmHg, resume at lower dose 5 mg daily. potassium chloride 20 mEq tablet extended release 20 meq PO DAILY Hold Instructions: Hold while taking Neutra-Phos Discontinued aluminum-magnesium hydroxide 225-200 mg/5 mL suspension 30 ml PO Q4H PRN tramadol 50 mg tablet 50 mg PO Q6H PRN (Reason: RIGHT HIP PAIN) Referrals / Follow Up: Manuel Beebe MD [Primary Care Provider] - Within 2 Weeks Armando Vidal DO [Med Staff - Active Staff] - Within 1 Month (For cirrhosis.) Dwayne Horton MD [Non-Staff -Ordering Privileges] - Within 2 Weeks (Parkinsondisease, dementia) Disposition Disposition (needs filled in before D/C Order can be placed): [facility]ustodial Facility Charges/Coding Visit Charges Inpatient E&M: 35034 Disch Hosp >30min 06/26/23 0939 <Electronically signed by Norris Orellana MD> Cosigner Signature (if applicable): CC: Dr. Manuel Beebe MD; Dr. Norris Orellana MD~ Signed [facility] Work Phone: Evaluation note* Diagnosis Controlled type 2 diabetes mellitus without complication, with long-term current use of insulin (HCC) documented in this encounter [facility] note* Diagnosis Controlled type 2 diabetes mellitus without complication, with long-term current use of insulin (HCC)- Primary documented in this encounter [facility] note* Diagnosis Controlled type 2 diabetes mellitus without complication, with long-term current use of insulin (HCC)- Primary Medication management Encounter for long-term (current) use of other medications documented in this encounter [facility] note* Diagnosis Hip fracture requiring operative repair, right, closed, initial encounter ([facility])- Primary Status post hip hemiarthroplasty documented in this encounter [facility] note* Diagnosis Pain- Primary Generalized pain documented in this encounter [facility] note* Diagnosis Pain- Primary Generalized pain documented in this encounter [facility] note* Diagnosis Hip fracture requiring operative repair, right, closed, initial encounter ([facility])- Primary Low back pain without sciatica, unspecified back pain laterality, unspecified chronicity documented in this encounter [facility] note* Diagnosis Low back pain without sciatica, unspecified back pain laterality, unspecified chronicity- Primary documented in this encounter [facility] note* Diagnosis Controlled type 2 diabetes mellitus without complication, with long-term current use of insulin ([facility])- Primary documented in this encounter [facility] note* Diagnosis Brain tumor (HCC)- Primary Neoplasm of unspecified nature of brain Moderate persistent asthma without complication Unspecified asthma Chronic diastolic CHF (congestive heart failure) (HCC) Chronic diastolic heart failure documented in this encounter [facility] note* Diagnosis Hip fracture requiring operative repair, right, closed, initial encounter ([facility])- Primary Low back pain without sciatica, unspecified back pain laterality, unspecified chronicity documented in this encounter [facility] note* Diagnosis Controlled type 2 diabetes mellitus without complication, with long-term current use of insulin ([facility]) Essential hypertension, benign documented in this encounter [facility] note* Diagnosis Onset Date Resolution Status [id number] acute Atrial fibrillation acute Benign prostate hyperplasia acute Cirrhosis of liver acute Debility acute Diabetes mellitus acute Gastroesophageal reflux disease acute FARIAS (nonalcoholic steatohepatitis) acute Prostate cancer acute Seizure disorder acute Stroke acute Chronic kidney disease, stage 3a chronic Asthma resolved Chronic systolic congestive heart failure resolved Closed right hip fracture re solved Prostate cancer acute [id number] acute [id number] acute [id number] acute Chest pain resolved 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 October 12, 2019 chr onic Chronic combined systolic an d diastolic CHF (congestive heart failure) chronic Longstanding persistent atrial fibrillation chronic Nonischemic cardiomyopathy c hronic 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 Abnormality of gait and mobility acute History of CVA (cerebrovascular accident) chronic Polyneuropathy chronic [facility] Work Phone: Evaluation note* Diagnosis Hip fracture requiring operative repair, right, closed, initial encounter ([facility])- Primary Status post [facility] Onset Date Resolution Status Atrial fibrillation acute Benign prostate hyperplasia acute Cirrhosis of liver acute Debility acute Diabetes mellitus acute Gastroesophageal reflux disease acute FARIAS (nonalcoholic steatohepatitis) acute Prostate cancer acute Seizure disorder acute Stroke acute Chronic kidney disease, stage 3a chronic Asthma resolved Chronic systolic congestive heart failure resolved Closed right hip fracture re solved Prostate cancer acute [id number] acute [id number] acute [id number] acute Chest pain resolved 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 October 12, 2019 chr onic Chronic combined systolic an d diastolic CHF (congestive heart failure) chronic Longstanding persistent atrial fibrillation chronic Nonischemic cardiomyopathy c hronic 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 Abnormality of gait and mobility acute History of CVA (cerebrovascular accident) chronic Polyneuropathy chronic [facility] Work Phone: Evaluation note* Diagnosis Status post hip hemiarthroplasty- Primary [facility] Diagnosis Status post [facility]- [facility] Onset Date Resolution Status Atrial fibrillation acute Benign prostate hyperplasia acute Cirrhosis of liver acute Debility acute Diabetes mellitus acute Gastroesophageal reflux disease acute FARIAS (nonalcoholic steatohepatitis) acute Prostate cancer acute Seizure disorder acute Stroke acute Chronic kidney disease, stage 3a chronic Asthma resolved Chronic systolic congestive heart failure resolved Closed right hip fracture re solved [id number] acute Chest pain resolved 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 October 12, 2019 chr onic Chronic combined systolic an d diastolic CHF (congestive heart failure) chronic Longstanding persistent atrial fibrillation chronic Nonischemic cardiomyopathy c hronic 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 Abnormality of gait and mobility acute History of CVA (cerebrovascular accident) chronic Polyneuropathy chronic [id number] acute [facility] Work Phone: Evaluation note* Diagnosis Liver disease- Primary Unspecified disorder of liver [facility] Diagnosis Liver disease Unspecified disorder of liver [facility] Diagnosis Tobacco abuse Tobacco use disorder [facility] Diagnosis Onset Date Resolution Status [id number] acute Abnormality of gait and mobility chronic Absent pedal pulses chronic History of CVA (cerebrovascular accident) chronic Polyneuropathy chronic Atrial fibrillation acute Cirrhosis acute 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 October 12, 2019 chr onic Chronic combined systolic an d diastolic CHF (congestive heart failure) chronic Essential (primary) hypertension chronic Nonischemic cardiomyopathy c hronic Atrial fibrillation acute 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 October 12, 2019 chr onic Chronic combined systolic an d diastolic CHF (congestive heart failure) chronic Longstanding persistent atrial fibrillation chronic Nonischemic cardiomyopathy c [facility] Work Phone: Evaluation note* Diagnosis Onset Date Resolution Status Abnormality of gait and mobility chronic Absent pedal pulses chronic History of CVA (cerebrovascular accident) chronic Polyneuropathy chronic Atrial fibrillation acute Cirrhosis acute 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 October 12, 2019 chr onic Chronic combined systolic an d diastolic CHF (congestive heart failure) chronic Essential (primary) hypertension chronic Nonischemic cardiomyopathy c hronic Atrial fibrillation acute 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 October 12, 2019 [facility] onic Chronic combined systolic an d diastolic CHF (congestive heart failure) chronic Longstanding persistent atrial fibrillation chronic Nonischemic cardiomyopathy c hronic 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 October 12, 2019 [facility] onic Chronic combined systolic an d diastolic CHF (congestive heart failure) chronic Longstanding persistent atrial fibrillation chronic Nonischemic cardiomyopathy c hronic 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 [facility] Work Phone: Evaluation note* Diagnosis Rash Rash and other nonspecific skin eruption [facility] Diagnosis Liver disease- Primary Unspecified disorder of liver Other cirrhosis of liver [facility]CC[facility] disease Unspecified disorder of liver [facility] Diagnosis Onset Date Resolution Status Parkinson's disease acute [id number] acute Abnormality of gait and mobility chronic Absent pedal pulses chronic History of CVA (cerebrovascular accident) chronic Polyneuropathy chronic [id number] acute 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 October 12, 2019 [facility] onic Longstanding persistent atrial fibrillation chronic Nonischemic cardiomyopathy c hronic 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 October 12, 2019 chr onic Chronic combined systolic an d diastolic CHF (congestive heart failure) chronic Longstanding persistent atrial fibrillation chronic Nonischemic cardiomyopathy c hronic 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 Adult failure to thrive acut e Debility acute Parkinson's disease acute Weakness acute History of CVA (cerebrovascular accident) chronic [facility] Work Phone: Evaluation note* Diagnosis Hypotension due to drugs- Primary Other iatrogenic hypotension Nausea Nausea alone Adult failure to thrive Type 2 diabetes mellitus with other specified complication, with long-term current use of insulin (HCC) Paroxysmal atrial fibrillation (HCC) Atrial fibrillation Chronic diastolic CHF (congestive heart failure) (HCC) Chronic diastolic heart failure Parkinson's disease (HCC) Paralysis agitans [facility] Diagnosis Onset Date Resolution Status Parkinson's disease acute [id number] acute Abnormality of gait and mobility chronic Absent pedal pulses chronic History of CVA (cerebrovascular accident) chronic Polyneuropathy chronic [id number] acute 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 October 12, 2019 [facility] onic Longstanding persistent atrial fibrillation chronic Nonischemic cardiomyopathy c hronic 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 October 12, 2019 [facility] onic Chronic combined systolic an d diastolic CHF (congestive heart failure) chronic Longstanding persistent atrial fibrillation chronic Nonischemic cardiomyopathy c hronic 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 Adult failure to thrive acut e Debility acute Parkinson's disease acute Weakness acute History of CVA (cerebrovascular accident) chronic Adult failure to thrive acut e VALENCIA (acute kidney injury) ac huslia Generalized weakness acute Transient hypotension acute [facility] Work Phone: Evaluation note* Diagnosis Controlled type 2 diabetes mellitus without complication, with long-term current use of insulin (HCC)- Primary Essential hypertension, benign 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 Moderate persistent asthma without complication Unspecified asthma Cirrhosis of liver with ascites, unspecified hepatic cirrhosis type (HCC) [facility] Onset Date Resolution Status Adult failure to thrive acut e Generalized weakness acute Transient hypotension acute VALENCIA (acute kidney injury) re solved Adult failure to thrive acut e Elevated troponin acute Generalized weakness acute VALENCIA (acute kidney injury) re solved Atrial fibrillation acute Cirrhosis acute 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 October 12, 2019 chr onic Chronic combined systolic an d diastolic CHF (congestive heart failure) chronic Essential (primary) hypertension chronic Nonischemic cardiomyopathy c hronic [facility] Work Phone: Evaluation note* Diagnosis Onset Date Resolution Status Adult failure to thrive acut e Generalized weakness acute Transient hypotension acute VALENCIA (acute kidney injury) re solved Adult failure to thrive acut e Elevated troponin acute Generalized weakness acute VALENCIA (acute kidney injury) re solved Atrial fibrillation acute Cirrhosis acute 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 October 12, 2019 chr onic Chronic combined systolic an d diastolic CHF (congestive heart failure) chronic Essential (primary) hypertension chronic Nonischemic cardiomyopathy c hronic Acute alteration in mental status acute Acute dehydration acute VALENCIA (acute kidney injury) ac [place] Elevated troponin acute Hyperbilirubinemia acute Leukocytosis acute Nausea & vomiting acute Right hip pain acute Toxic metabolic encephalopathy acute [facility] Work Phone: Evaluation note* Diagnosis Onset Date Resolution Status Adult failure to thrive acut e Generalized weakness acute Transient hypotension acute VALENCIA (acute kidney injury) re solved Adult failure to thrive acut e Elevated troponin acute Generalized weakness acute VALENCIA (acute kidney injury) re solved Atrial fibrillation acute Cirrhosis acute 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 October 12, 2019 chr onic Chronic combined systolic an d diastolic CHF (congestive heart failure) chronic Essential (primary) hypertension chronic Nonischemic cardiomyopathy c hronic Acute alteration in mental status acute Acute dehydration acute Elevated troponin acute Hyperbilirubinemia acute Leukocytosis acute Nausea & vomiting acute Right hip pain acute VALENCIA (acute kidney injury) re solved Toxic metabolic encephalopathy resolved [id number] acute [facility] Work Phone: Evaluation note* Diagnosis Onset Date Resolution Status Adult failure to thrive acut e Elevated troponin acute Generalized weakness acute VALENCIA (acute kidney injury) re solved Atrial fibrillation acute Cirrhosis acute 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 October 12, 2019 chr onic Chronic combined systolic an d diastolic CHF (congestive heart failure) chronic Essential (primary) hypertension chronic Nonischemic cardiomyopathy c hronic Acute alteration in mental status acute Acute dehydration acute Elevated troponin acute Hyperbilirubinemia acute Leukocytosis acute Nausea & vomiting acute Right hip pain acute VALENCIA (acute kidney injury) re solved Toxic metabolic encephalopathy resolved [id number] acute [facility] Work Phone: Evaluation note* Diagnosis Chronic diastolic CHF (congestive heart failure) (HCC)- Primary Chronic diastolic heart failure [facility] Diagnosis Onset Date Resolution Status Acute alteration in mental status acute Acute dehydration acute Elevated troponin acute Hyperbilirubinemia acute Leukocytosis acute Nausea & vomiting acute Right hip pain acute VALENCIA (acute kidney injury) re solved Toxic metabolic encephalopathy resolved [id number] acute Atrial fibrillation acute Cirrhosis acute 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 October 12, 2019 chr onic Chronic combined systolic an d diastolic CHF (congestive heart failure) chronic Essential (primary) hypertension chronic Nonischemic cardiomyopathy c hronic [facility] Work Phone: Evaluation note* Diagnosis Prostate cancer (HCC)- Primary Malignant neoplasm of prostate 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) Malignant neoplasm of prostate [facility] Diagnosis 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 Personal history of contact with and (suspected) exposure to potentially hazardous body fluids documented in this encounter [facility] note* Diagnosis Prostate cancer (HCC)- Primary Malignant neoplasm of prostate documented in this encounter [facility] note* Diagnosis Age-related osteoporosis without current pathological fracture- Primary Senile osteoporosis Prostate cancer (HCC) Malignant neoplasm of prostate documented in this encounter [facility] note* Diagnosis Liver disease- Primary Unspecified disorder of liver Cirrhosis of liver with ascites, unspecified hepatic cirrhosis type (HCC) (HCC) [facility] Diagnosis Liver disease Unspecified disorder of liver Other cirrhosis of liver (HCC) [facility] Diagnosis Prostate cancer (HCC)- Primary Malignant neoplasm of prostate [facility] Diagnosis Right hip pain Pain in joint, pelvic region and thigh Prostate cancer (HCC) Malignant neoplasm of prostate [facility] Diagnosis Prostate cancer (HCC)- Primary Malignant neoplasm of prostate Right hip pain Pain in joint, pelvic region and thigh [facility] Diagnosis 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- Primary History of right hip replacement [facility] Diagnosis Age-related osteoporosis without current pathological fracture- Primary Senile osteoporosis Prostate cancer (HCC) Malignant neoplasm of prostate [facility] Diagnosis Hypercalcemia- Primary Age-related osteoporosis without current pathological fracture Senile osteoporosis [facility] Diagnosis Age-related osteoporosis without current pathological fracture- Primary Senile osteoporosis [facility] Diagnosis Prostate cancer (HCC)- Primary Malignant neoplasm of prostate [facility] Diagnosis Chronic right hip pain- Primary Pain in joint, pelvic region and thigh S/P hip hemiarthroplasty Hip joint replacement by other means [facility] Diagnosis Prostate cancer (HCC)- Primary Malignant neoplasm of prostate [facility] Diagnosis Liver disease Unspecified disorder of liver [facility] Diagnosis Alcoholic liver disease (HCC)- Primary Alcoholic liver damage, unspecified [facility] Diagnosis Liver disease- Primary Unspecified disorder of liver [facility] Liver disease Unspecified disorder of liver [facility] Diagnosis Prostate cancer (HCC)- Primary Malignant neoplasm of prostate 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) Malignant neoplasm of prostate [facility] Diagnosis Prostate cancer (HCC)- Primary Malignant neoplasm of prostate [facility] Diagnosis Liver disease- Primary Unspecified disorder of liver Alcoholic liver disease (HCC) Alcoholic liver damage, unspecified Cirrhosis of liver with ascites, unspecified hepatic cirrhosis type (HCC) (HCC) [facility] Diagnosis Liver disease- Primary Unspecified disorder of liver [facility] Diagnosis Liver disease Unspecified disorder of liver [facility] Diagnosis Prostate cancer (HCC)- Primary Malignant neoplasm of prostate 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) Malignant neoplasm of prostate [facility] Diagnosis Prostate cancer (HCC)- Primary Malignant neoplasm of prostate [facility] Diagnosis Right inguinal hernia- Primary Inguinal hernia without mention of obstruction or gangrene, unilateral or unspecified, (not specified as recurrent) documented [facility] Diagnosis Preoperative examination- Primary Preoperative examination, unspecified Non-recurrent unilateral inguinal hernia without obstruction or gangrene Abnormal results of liver function studies Nonspecific abnormal results of liver function study Abnormal coagulation profile [facility] Jacobs [facility] April 10, 2023 5:01pm Note Date/Time April 10, 2023 4:24p m [facility] Medical Records Department [address] [place] [id number] H&P Exam - Hospitalist 04/10/23 1622 MR#: [id number] Acct: [id number] Name: STEPH BAUMANN Rep #:[id number] : 1950 72 From: Michael Jacobs MD PCP: Dr. Manuel Beebe MD Status:[facility] [place] [facility] [place] [id number] HPI - General General Date of Admission: 04/10/23 Date of Service: 04/10/23 Chief Complaint: Generalized weakness HPI Narrative STEPH BAUMANN, is a 72 M with multiple comorbidities including previous, paroxysmal A-fib, nonischemic cardiomyopathy with ejection fraction of 20 to 25%who was brought to the emergency department after he activated his medic Alert.. Patient has been experiencing progressive generalized weakness. He also felt he was dehydrated. EMS reported patient being somewhat confused prior to patient being brought to the emergency department. In the emergency department underwent subsequent evaluation including head CT which is unremarkable. Decision was however made to admit patient as a case of adult failure to thrive sepsis caretakers were apparently out of town. [facility] Medical History Acute and chronic respiratory failure with hypoxia Acute heart failure with reduced ejection fraction and diastolic dysfunction Ambulates with cane Anticoagulant long-term use Ascites Asthma Atherosclerosis of coronary artery of [place] heart without angina pectoris Atrial fibrillation and flutter Back pain Benign brain tumor Cholelithiasis Chronic combined systolic and diastolic CHF (congestive heart failure) Chronic kidney disease (CKD) Cirrhosis of liver Cirrhosis of liver with ascites CPAP (continuous positive airway pressure) dependence Diabetes Diabetes mellitus, type II Essential (primary) hypertension Former smoker History of atrial fibrillation History of CVA (cerebrovascular accident) History of ulceration Hyperlipidemia Injury of back Insulin dependent diabetes mellitus Longstanding persistent atrial fibrillation Non-rheumatic tricuspid valve insufficiency Nonischemic cardiomyopathy NSTEMI (non-ST elevated myocardial infarction) (10/09/19) ALBINO (obstructive sleep apnea) 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 Right inguinal hernia Right ventricular systolic dysfunction Secondary pulmonary arterial hypertension Seizure disorder Sleep apnea Stasis edema of both lower extremities Stroke/cerebrovascular accident Thyroid disease Wears glasses Home Medications insulin glargine 100 unit/mL (3 mL) subcutaneous pen 27 unit SQ QHS diabetes 10/30/18 [History Last Taken 01/30/19] bicalutamide 50 mg tablet (Casodex) 50 mg PO DAILY prostate 12/10/21 [History Last Taken 02/18/22 10:32] loratadine 10 mg capsule 10 mg PO DAILY PRN allergies 12/10/21 [History Last Taken 02/18/22 10:32] cyanocobalamin (vitamin B-12) 250 mcg tablet (Vitamin B-12) 250 mcg PO DAILY Supplement 02/19/22 [History Last Taken 02/18/22 10:32] multivitamin 1 tab PO DAILY supplement 02/19/22 [History Last Taken 02/18/22 10:31] tramadol 50 mg tablet 50 mg PO Q6H PRN PRN Pain Score 1-10 7 days #28 tabs 04/01/22 [Rx Last Taken Unknown] bumetanide 1 mg tablet 3 tab PO DAILY water pill 04/25/22 [History Last Taken Unknown] calcium 300 mg chewable tablet 300 mg PO DAILY supplement 04/25/22 [History Last Taken Unknown] polysaccharide iron complex 150 mg iron capsule (Ferrex) 150 mg PO DAILY supplement 04/25/22 [History Last Taken Unknown] spironolactone 25 mg tablet 1 tab PO DAILY waterpill 04/25/22 [History Last Taken Unknown] apixaban 5 mg tablet (Eliquis) See Rx Instructions .Route .COMPLEX #60 TABLETS 05/19/22 [Rx Last Taken Unknown] lisinopril 40 mg tablet 40 mg PO DAILY 09/09/22 [History Last Taken Unknown] omeprazole 20 mg capsule,delayed release 20 mg PO DAILY 09/09/22 [History Last Taken Unknown] topiramate 25 mg tablet 25 mg PO BID 09/09/22 [History Last Taken Unknown] baclofen 20 mg tablet 20 mg PO TID #90 tabs 12/23/22 [Rx Last Taken Unknown] carbidopa 25 mg-levodopa 100 mg tablet 1 tab PO TID #90 tabs 12/23/22 [Rx Last Taken Unknown] carvedilol 6.25 mg tablet 6.25 mg PO BID This is a dose increase #180 tabs 03/10/23 [Rx Last Taken Unknown] Allergy/AdvReac Type Severity Reaction Status Date / Time acetaminophen AdvReac Other Verified 01/06/23 13:44 oxycodone AdvReac hallucinati Verified 01/06/23 13:44 ons Family History Daughter Heart disease valve replacement/chf Diabetes Mother Thyroid disorder Surgical History Biventricular ICD (implantable cardioverter-defibrillator) in place (10/12/19) H/O excision of tumor of brain meninges (2011) History of arthroplasty of right hip History of cardiac catheterization History of cardioversion (05/05/20) History of left heart catheterization (08/31/19) History of percutaneous coronary intervention (10/10/19) History of right and left heart catheterization History of right hip hemiarthroplasty History of tonsillectomy Social History household members: none Smoking Status: Former smoker how long ago did patient quit smokin years second hand exposure: No alcohol intake: never substance use type: does not use regla/yazidism: None seatbelt use: always ROS ROS Narrative GENERAL: denies fever, chills, night sweats, HEENT: denies headache, sinus congestion, RESPIRATORY: denies cough, sputum production, CARDIAC: denies chest pain, palpitations, orthopnea, PND GASTROINTESTINAL: denies abdominal pain, nausea, vomiting, melena, GENITOURINARY: denies dysuria, urgency, frequency, heamaturia EXTREMITY: denies swelling MUSCULOSKELETAL: denies current joint pain or tenderness NEUROLOGIC: denies focal numbness, weakness, tingling HEMATOLOGIC: denies easy bruising and/or hemorrhage INTEGUMENT: denies rashes PSYCHIATRIC: denies suicidal or homicidal ideation Vital Signs Vital Signs Vital Signs: 04/10/23 12:46 04/10/23 14:43 Temperature 96.9 F L 97.1 F L Temperature Source Temporal Temporal Pulse Rate 71 74 Respiratory Rate 18 18 Blood Pressure 118/80 127/85 H Blood Pressure Mean 92 99 Pulse Ox 97 99 Oxygen Delivery Method Room Air Room Air Weight Weight: 87.9 kg Body Mass Index (BMI) 28.6 Results Lab / Micro Data Result Diagrams: 04/10/23 12:30 04/10/23 12:30 Labs: Laboratory Results - last 24 hr 04/10/23 12:30: WBC 9.3, RBC 4.14 L, Hgb 13.3, Hct 40.0, MCV 96.6 H, MCH 32.1 H,MCHC 33.3, RDW Std Deviation 48.4 H, RDW Coeff of Yonathan 13.8, Plt Count 155, MPV 11.2, Immature Gran % (Auto) 0.600, Neut % (Auto) 85.5 H, Lymph % (Auto) 5.4 L, [place] % (Auto) 6.7, Eos % (Auto) 1.4, Baso % (Auto) 0.4, Absolute Neuts (auto) 8.0 H, Absolute Lymphs (auto) 0.50 L, Nucleated RBC % 0, Differential Comment COMMENT 04/10/23 12:30: Sodium 139, Potassium 4.0, Chloride 104, Carbon Dioxide 28.0, Anion Gap 7, BUN 29 H, Creatinine 1.39 H, Estim Creat Clear Calc 49.45, Est GFR (MDRD) Af Amer 65, Est GFR (MDRD) Non-Af 54 L, BUN/Creatinine Ratio 20.9 H, Glucose 216 H, Calcium 9.5, Total Bilirubin 0.90, AST 16, ALT 12 L, Alkaline Phosphatase 133 H, Total Protein 8.0, Albumin 4.0, Globulin 4.0, Albumin/Globulin Ratio 1.0 04/10/23 15:12: Urine Color Yellow, Urine Clarity Clear, Urine pH 6.0, Ur Specific Shanks 1.015, Urine Protein Negative, Urine Glucose (UA) Normal, UrineKetones Negative, Urine Occult Blood Negative, Urine Nitrite Negative, Urine Bilirubin Negative, Urine Urobilinogen Normal, Ur Leukocyte Esterase Negative, Urine RBC 0 SEEN, Urine WBC 0 SEEN, Ur Squamous Epith Cells 0 SEEN, Urine Bacteria 0 SEEN, Urine Mucus 0 SEEN Radiology Impression Brain CT 04/10/23 13:18 IMPRESSION: 1. No CT evidence of intracranial bleeding, acute ischemic infarct or acute intracranial abnormality. 2. Large old cortical-based cystic infarctions involving the posterior right temporal lobe, right central lobe and the posterior aspect of the right superior frontal gyrus. 3. Small old ischemic infarct with focal atrophy and encephalomalacia in the left precentral gyrus. 4. Old lacunar ischemic infarct in the left thalamus. 5. No interval change when compared to 07/21/2022. Electronically Signed: Victorino Darby MD at 13:54 EDT Reading Location ID and State: [facility] / [place] , Service support , Chest X-Ray 04/10/23 13:26 IMPRESSION: 1. No acute findings in the chest. 2. No interval change when compared to 06/07/2022. Electronically Signed: Victorino Darby MD at 13:55 EDT , Assessment & Plan Assessment/Plan (1) Adult failure to thrive: PLAN: Plan Patient is a 72-year-old gentleman with multiple comorbidities admitted with progressive generalized weakness 1. Adult failure to thrive ? Requested for PT OT eval and social service coordinator to assist with discharge planning 2. Nonischemic cardiomyopathy -with a known ejection fraction of 20 to 25% with a placement of a BiV ICD.? Patient is on diuretic therapy with spironolactone and bumetanide and plan is toresume once home meds have been reconciled by pharmacy 3. Atrial tachyarrhythmia ? With history of cardioversion in February 2020 4. Paroxysmal A-fib ? Rate controlled on carvedilol and on systemic anticoagulation with apixaban 5. Chronic kidney disease stage III ? Kidney function at baseline 6. History of recurrent CVA ? With residual left-sided weakness patient at baseline 7. Hypertension - Blood pressure controlled, home medications continued with dose adjustment as needed 8. Diabetes mellitus type 2 ? Patient is on long-acting insulin did continue also placed on Accu-Cheks before meals and at bedtime with sliding scale coverage GERD ? Patient is on PPI continued 9. Parkinson's disease ? Patient is on carbidopa levodopa did continue 10. Obstructive sleep apnea -on CPAP at night 11. Seizure disorder ? Patient on topiramate did continue 12. History of prostate CA ? Patient previously undergone radiation therapy 13. DVT prophylaxis ? Patient is on apixaban and continue Time spent in the patient's overall evaluation,decision-making process, review of diagnostic data, adjustment of management, discussion with other providers, nursing nursing and ancillary staff involved in patient's care documentation, 77 Minutes Advance planning; did discuss with the patient and family regarding advanced directives as well as CODE STATUS. Did explain the various scenarios involved (FULL CODE, DNR CCA, DNR CCA with no intubation, and DNR CC and what each meant) patient elected to remain full code with CPR and intubation if needed. Order was placed. Time spent on discussion 18 minutes. Charges/Coding Visit Charges Inpatient E&M: 26364 Init Hosp L3 Procedures Hospitalists Procedures: 11748 Advncd Care Plan 30 Min 04/10/23 1701 <Electronically signed by Michael Jacobs MD> Cosigner Signature (if applicable): CC: Dr. Michael Jacobs MD; Dr. Manuel Beebe MD~ Signed [facility] Work Phone: History and physical note Author Maximo Addison [facility] June 21, 2023 5:38pm Note Date/Time June 21, 2023 5: 24pm [facility] Medical Records Department [address] [place] [address] H&P Exam - Hospitalist 06/21/23 1715 MR#: [id number] Acct: [id number] Name: STEPH BAUMANN Rep #:[id number] : 1950 73 From: Maximo sung MD PCP: Dr. Manuel Beebe MD Status:RE G ER Location: ED HPI - General General Date of Admission: 06/21/23 HPI Narrative STEPH BAUMANN, is a 73 M who presents from the snf with altered mental status as well as nausea and vomiting. Unfortunately he is not alert enough to provide any history so the history is obtained from the ER physician as well as the POA who is present at bedside. The POA is a friend of the patient's daughter who had and the patient has no other family. She statesthat he has been doing well at the snf but it has transitioned into a long-term stay and last night he did not eat all of his food and then this morning he had some nausea and started to vomit without eating any breakfast. He has significant heart disease and is on multiple diuretics which is likely contributed to his VALENCIA. He does have chronic kidney disease but his baseline creatinine is around 1.6 and is currently at 2.33. Chest x-ray and brain CT in the ER were unremarkable as was UA. [facility] Medical History Acute and chronic respiratory failure with hypoxia Acute heart failure with reduced ejection fraction and diastolic dysfunction Adult failure to thrive Ambulates with cane Anticoagulant long-term use Ascites Asthma Atherosclerosis of coronary artery of [place] heart without angina pectoris Atrial fibrillation and flutter Back pain Benign brain tumor Cholelithiasis Chronic combined systolic and diastolic CHF (congestive heart failure) Chronic kidney disease (CKD) Cirrhosis of liver Cirrhosis of liver with ascites CPAP (continuous positive airway pressure) dependence Debility Diabetes Diabetes mellitus, type II Essential (primary) hypertension Former smoker History of atrial fibrillation History of CVA (cerebrovascular accident) History of ulceration Hyperlipidemia Injury of back Insulin dependent diabetes mellitus Longstanding persistent atrial fibrillation Non-rheumatic tricuspid valve insufficiency Nonischemic cardiomyopathy NSTEMI (non-ST elevated myocardial infarction) (10/09/19) ALBINO (obstructive sleep apnea) Parkinson's disease 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 Right inguinal hernia Right ventricular systolic dysfunction Secondary pulmonary arterial hypertension Seizure disorder Sleep apnea Stasis edema of both lower extremities Stroke/cerebrovascular accident Thyroid disease Weakness Wears glasses Home Medications insulin glargine 100 unit/mL (3 mL) subcutaneous pen 37 unit subcut QHS [id number] [History Last Taken 04/12/23] bicalutamide 50 mg tablet (Casodex) 50 mg PO DAILY prostate 12/10/21 [History Last Taken 04/13/23] multivitamin 1 tab PO DAILY supplement 02/19/22 [History Last Taken 04/13/23] baclofen 20 mg tablet 20 mg PO TID BACK PAIN #90 tabs 12/23/22 [Rx Last Taken 04/13/23] apixaban 5 mg tablet (Eliquis) 5 mg PO BID blood thinner 04/13/23 [History Last Taken 04/13/23] carvedilol 3.125 mg tablet 3.125 mg PO BID HEART 04/13/23 [History Last Taken 04/12/23] dextrose 40 % oral gel (Glucose Gel) 15 g PO Q15M PRN Hypoglycemia 04/23/23 [History Last Taken Unknown] tramadol 50 mg tablet 50 mg PO Q12H PRN LOWER BACK PAIN 04/23/23 [History Last Taken Unknown] acetazolamide 250 mg tablet 250 mg PO BID 06/08/23 [History Last Taken Unknown] carbidopa 25 mg-levodopa 100 mg tablet 1 tab PO TID PARKINSONS 06/08/23 [History Last Taken Unknown] docusate sodium 100 mg capsule 100 mg PO BID CONSTIPATION 06/08/23 [History Last Taken Unknown] lisinopril 20 mg tablet 20 mg PO DAILY BLOOD PRESSURE 06/08/23 [History Last Taken Unknown] potassium chloride 20 mEq tablet,extended release 20 meq PO DAILY SUPPLEMENT 06/08/23 [History Last Taken Unknown] aluminum-magnesium hydroxide 225 mg-200 mg/5 mL oral suspension 30 ml PO Q4H PRN06/21/23 [History Last Taken Unknown] bisacodyl 10 mg rectal suppository 10 mg MA DAILY PRN constipation 06/21/23 [History Last Taken Unknown] bumetanide 2 mg tablet 2.5 mg PO DAILY FLUID 06/21/23 [History Last Taken Unknown] dulaglutide 1.5 mg/0.5 mL subcutaneous pen injector (Trulicity) 1.5 mg subcut FRDIABETES 06/21/23 [History Last Taken Unknown] lactulose 10 gram oral packet 10 g PO DAILY CONSTIPATION 06/21/23 [History Last Taken Unknown] lidocaine 5 % topical patch 1 patch topical DAILY RIGHT HIP PAIN 06/21/23 [History Last Taken Unknown] pantoprazole 40 mg tablet,delayed release 40 mg PO BID ACID REFLUX 06/21/23 [History Last Taken Unknown] sennosides 8.6 mg tablet (senna) 17.2 mg PO QHS CONSTIPATION 06/21/23 [History Last Taken Unknown] tramadol 50 mg tablet 50 mg PO Q6H PRN RIGHT HIP PAIN 06/21/23 [History Last Taken Unknown] Allergy/AdvReac Type Severity Reaction Status Date / Time acetaminophen AdvReac Other Verified 06/21/23 12:27 oxycodone AdvReac hallucinati Verified 06/21/23 12:27 ons Family History Daughter Heart disease valve replacement/chf Diabetes Mother Thyroid disorder Surgical History Biventricular ICD (implantable cardioverter-defibrillator) in place (10/12/19) H/O excision of tumor of brain meninges (2011) History of arthroplasty of right hip History of cardiac catheterization History of cardioversion (05/05/20) History of left heart catheterization (08/31/19) History of percutaneous coronary intervention (10/10/19) History of right and left heart catheterization History of right hip hemiarthroplasty History of tonsillectomy Social History household members: none Smoking Status: Former smoker how long ago did patient quit smokin years second hand exposure: No alcohol intake: never substance use type: does not use regla/yazidism: None seatbelt use: always ROS Review of Systems ROS Unobtainable: due to mental status Vital Signs Vital Signs Vital Signs: 06/21/23 12:22 06/21/23 12:32 06/21/23 12:26 Temperature 96.8 F L 97.6 F L Temperature Source Temporal Temporal Pulse Rate 72 70 Respiratory Rate 20 H 20 H Respiratory Pattern Normal Blood Pressure 113/73 107/65 Blood Pressure Mean 86 79 Pulse Ox 96 96 Oxygen Delivery Method Room Air Room Air 06/21/23 13:26 06/21/23 12:46 06/21/23 12:50 Temperature 97.8 F Temperature Source Temporal Pulse Rate 69 70 70 Respiratory Rate 21 H 12 13 Respiratory Pattern Blood Pressure 106/73 Blood Pressure Mean 84 Pulse Ox 97 97 92 Oxygen Delivery Method Room Air 06/21/23 13:00 06/21/23 13:10 06/21/23 13:20 Temperature Temperature Source Pulse Rate 72 70 73 Respiratory Rate 22 H 21 H 23 H Respiratory Pattern Blood Pressure 106/55 L Blood Pressure Mean 72 Pulse Ox 94 96 Oxygen Delivery Method 06/21/23 13:25 06/21/23 13:30 06/21/23 13:40 Temperature Temperature Source Pulse Rate 72 70 73 Respiratory Rate 26 H 11 L 29 H Respiratory Pattern Blood Pressure 106/73 Blood Pressure Mean 84 Pulse Ox 96 Oxygen Delivery Method 06/21/23 13:45 06/21/23 13:50 06/21/23 14:00 Temperature Temperature Source Pulse Rate 70 74 74 Respiratory Rate 18 18 18 Respiratory Pattern Blood Pressure 100/75 Blood Pressure Mean 81 Pulse Ox 98 99 Oxygen Delivery Method 06/21/23 14:10 06/21/23 15:00 Temperature Temperature Source Pulse Rate 70 70 Respiratory Rate 27 H 20 H Respiratory Pattern Blood Pressure 108/64 Blood Pressure Mean 78 Pulse Ox 98 96 Oxygen Delivery Method Room Air Weight Weight: 178 lb 2.136 oz Body Mass Index (BMI) 26.3 Physical Exam Narrative General: Sleepy, no apparent distress HEENT: Atraumatic, PERRLA, normocephalic Oral: Dry mucosa Neck: Supple, No JVD Lungs: Diminished, Normal air movement, No rhonchi, No wheeze, No rales Cardiovascular: Regular rate, Regular Rhythm, Normal S1, Normal S2, No murmurs Abdomen: Soft, Non Tender, Non-Distended, No Hepato-splenomegaly Extremities: No edema, Capillary Refill Less than 3 Seconds Skin: No rashes, No breakdown Musculoskeletal: No Tenderness to Palpation of Joints or Extremities Neurological: Cranial nerves II-XII grossly intact, Motor Exam 5/5 strength throughout, Sensory exam intact to light touch and pain Psych/Mental Status: Drowsy Results Lab / Micro Data 06/21/23 13:10 06/21/23 13:10 Labs: Laboratory Results - last 24 hr 06/21/23 13:10: WBC 9.2, RBC 4.65, Hgb 15.0, Hct 46.3, MCV 99.6 H, MCH 32.3 H, MCHC 32.4, RDW Std Deviation 50.8 H, RDW Coeff of Yonathan 14.4, Plt Count 204, MPV 11.5, Sodium 142, Potassium 4.2, Chloride 107, Carbon Dioxide 27.0, Anion Gap 8,BUN 35 H, Creatinine 2.33 H, Estim Creat Clear Calc 29.08, Est GFR (MDRD) Af Amer 36 L, Est GFR (MDRD) Non-Af 30 L, BUN/Creatinine Ratio 15.0, Glucose 116 H,Calcium 9.7, Ammonia 30.0, Troponin I High Sens 104 H, Lipase < 10 L 06/21/23 13:25: Urine Color Yellow, Urine Clarity Clear, Urine pH 6.0, Ur Specific Shanks 1.020, Urine Protein 30 H, Urine Glucose (UA) Normal, Urine Ketones 5 H, Urine Occult Blood Negative, Urine Nitrite Negative, Urine Bilirubin 1 H, Urine Urobilinogen 1 H, Ur Leukocyte Esterase 25 H, Urine RBC 0-5SEEN, Urine WBC 0-5 SEEN, Ur Squamous Epith Cells 0-5 SEEN, Urine Bacteria RARE,Urine Mucus 0 SEEN 06/21/23 13:57: B-Natriuretic Peptide 43.4 Micro: Microbiology 06/21/23 13:57 Nasal Secretion SARS-CoV-2 & FLU Antigen (Rapid) - Final Radiology Impression Brain CT 06/21/23 13:28 IMPRESSION: Chronic involutional changes of the brain. Stable chronic changes more prominent in the right cerebral hemisphere. Electronically Signed: Erik Sandoval MD at 14:41 EDT , Chest X-Ray 06/21/23 13:28 IMPRESSION: Cardiomegaly. Prominence of the central pulmonary arteries. The lungs are clear. Electronically Signed: Erik Sandoval MD at 14:39 EDT , Assessment & Plan Assessment/Plan (1) Acute alteration in mental status: (2) Nausea & vomiting: (3) Acute kidney injury: PLAN: Plan 1. VALENCIA secondary to dehydration and diuresis leading to metabolic encephalopathy ? It appears that he did not eat or drink very well yesterday or this morning and he had some large volume emesis ? He did receive some IV fluids in the ER will hold off on any more given his reduced EF as well as significant diastolic dysfunction and pulmonary hypertension ? We will also hold his nephrotoxic medications 2. A. fib status post AICD/HTN/HLD/CAD status post thrombectomy/nonischemic cardiomyopathy/pulmonary hypertension ? Blood pressure are stable, will hold any of his nephrotoxic blood pressure medications ? Continue with statin ? Continue with Eliquis 3. IDDM 2 ? We will hold his home insulin given his lack of p.o. intake currently ? Accu-Cheks at bedtime, continue with the medium dose sliding scale ? We will make adjustments as necessary 4. GERD ? Stable ? Continue with PPI 5. Parkinson's ? We will continue with his Sinemet which was restarted by his neurologist 6. Prostate cancer ? He has completed radiation treatments DVT: Wilmar I had a 20-minute discussion with the POA on advance care planning options including hospice. She reiterated that he would like to be full code. Charges/Coding Visit Charges Inpatient E&M: 39383 Init Hosp L2 Procedures Hospitalists Procedures: 70800 Advncd Care Plan 30 Min 06/21/23 2188 <Electronically signed by Maximo Addison MD> Cosigner Signature (if applicable): CC: Dr. Manuel Beebe MD; Dr. Maximo Addison MD~ Signed [facility] Work Phone: [facility] Phone[facility] Hospital Discharge instructions Additional Instructions Please continue all of your normal medications as previously directed and return to the ER should you have any [facility] Work Phone: Reason for referral (narrative)* Diagnostic Procedure Only (Routine) - Authorized Specialty Diagnoses / Procedures Referred By Contac t Referred To Contact US IMAGING Diagnoses Liver disease Procedures US ABD RT UPPER QUADRANT US ABDOMINAL REAL TIME W/IMAGE LIMITED Deborah Main [address] [place] [address] Us Imaging Referral ID Status Reason Start Date Expiration Date Visits Requested Visits Authorized [id number] Authorized Auto-Generat ed Referral 2 10/02/2023 4 4 [facility] for referral (narrative)* Diagnostic Procedure Only (Routine) - Authorized Specialty Diagnoses / Procedures Referred By Contac t Referred To Contact US IMAGING Diagnoses Liver disease Procedures US ABD RT UPPER QUADRANT US ABDOMINAL REAL TIME W/IMAGE LIMITED Deborah Main [address] [place] [address] Us Imaging Referral ID Status Reason Start Date Expiration Date Visits Requested Visits Authorized [id number] Authorized Auto-Generat ed Referral 2 10/02/2023 4 4 T [facility] for referral (narrative)* Diagnostic Procedure Only (Routine) - Authorized Specialty Diagnoses / Procedures Referred By Contac t Referred To Contact US IMAGING Diagnoses Liver disease Procedures US ABD RIGHT UPPER QUADRANT US ABDOMINAL REAL TIME W/IMAGE LIMITED Merlin Loredo MD [address] [place] [address] Us Imaging Referral ID Status Reason Start Date Expiration Date Visits Requested Visits Authorized [id number] Authorized Auto-Generat ed Referral 09/12/2023 04/07/2024 1 1 T [facility] for referral (narrative)* Diagnostic Procedure Only (Routine) - Authorized Specialty Diagnoses / Procedures Referred By Contac t Referred To Contact US IMAGING Diagnoses Liver disease Procedures US ABD RT UPPER QUADRANT US ABDOMINAL REAL TIME W/IMAGE LIMITED Deborah Main [address] [place] [id number] Us Imaging Referral ID Status Reason Start Date Expiration Date Visits Requested Visits Authorized [id number] Authorized Auto-Generat ed Referral 2 10/02/2023 4 4 [facility] for referral (narrative)* Outpatient Procedure (Routine) - Pending Review Specialty Diagnoses / Procedures Referred By Contac t Referred To Contact [facility] Diagnoses Liver disease Procedures DDI VIBRATION CONTROLLED TRANSIENT ELASTOGRAPHY (VCTE) LIVER ELASTOGRAPHY W/O IMAG W/I&R Merlin Loredo MD [address] [place] [address] [facility] [address] [place] [address] Referral ID Status Reason Start Date Expiration Date Visits Requested Visits Authorized [id number] Pending Review Auto-Generat ed Referral 08/14/2024 03/14/2025 1 1 * Diagnostic Procedure Only (Routine) - Pending Review Specialty Diagnoses / Procedures Referred By Contac t Referred To Contact US IMAGING Diagnoses Liver disease Procedures US ABD RIGHT UPPER QUADRANT US ABDOMINAL REAL TIME W/IMAGE LIMITED Merlin Loredo MD [address] [place] [address] Us Imaging [place] [address] Referral ID Status Reason Start Date Expiration Date Visits Requested Visits Authorized [id number] Pending Review Auto-Generat ed Referral 08/14/2024 04/13/2025 1 1 * Outpatient Procedure (Routine) - Pending Review Specialty Diagnoses / Procedures Referred By Contac t Referred To Contact [facility] Diagnoses Liver disease Procedures EGD - THERAPEUTIC, EUS, OR TUBE INTERVENTIONS EGD BAND LIGATION ESOPHGEAL/GASTRIC VARICES Merlin Loredo MD [address] [place] [address] [facility] [place] [facility] [place] [address] Referral ID Status Reason Start Date Expiration Date Visits Requested Visits Authorized [id number] Pending Review Auto-Generat ed Referral 08/14/2024 03/14/2025 1 1 [facility] for referral (narrative)* Diagnostic Procedure Only (Routine) - Closed Specialty Diagnoses / Procedures Referred By Contac t Referred To Contact US IMAGING Diagnoses Liver disease Other cirrhosis of liver (HCC) Procedures US ABD RIGHT UPPER QUADRANT US ABDOMINAL REAL TIME W/IMAGE LIMITED Merlin Loredo MD [address] [place] [address] [place] [address] Referral ID Status Reason Start Date Expiration Date V isits Requested Visits Authorized [id number] Closed Auto-Generate d Referral 09/16/2023 10/12/2024 1 1 [facility] for referral (narrative)* Diagnostic Procedure Only (Routine) - Closed Specialty Diagnoses / Procedures Referred By Contac t Referred To Contact XR IMAGING Diagnoses Right hip pain Prostate cancer (HCC) Procedures XR HIP GENERAL 3V PELV/AP/LAT RIGHT RADEX HIP UNILATERAL WITH PELVIS 2-3 VIEWS Jonnathan Swift DO [address] [place] [address] [place] [address] Referral ID Status Reason Start Date Expiration Date V isits Requested Visits Authorized [id number] Closed Auto-Generate d Referral 03/21/2024 04/20/2025 1 1 [facility] for referral (narrative)* Outpatient Procedure (Routine) - Closed Specialty Diagnoses / Procedures Referred By Contac t Referred To Contact [facility] Diagnoses Liver disease Procedures EGD - THERAPEUTIC, EUS, OR TUBE INTERVENTIONS EGD BAND LIGATION ESOPHGEAL/GASTRIC VARICES Merlin Loredo MD [address] [place] [address] [place] [id number] Referral ID Status Reason Start Date Expiration Date V isits Requested Visits Authorized [id number] Closed Auto-Generate d Referral 08/14/2024 03/14/2025 1 1 [facility] for referral (narrative)* Outpatient Procedure (Routine) - New Request Specialty Diagnoses / Procedures Referred By Contac t Referred To Contact [facility] Diagnoses Alcoholic liver disease (HCC) Procedures DDI VIBRATION CONTROLLED TRANSIENT ELASTOGRAPHY (VCTE) LIVER ELASTOGRAPHY W/O IMAG W/I&R Fabiola Miller APRN.CNP [address] [place] [address] [place] [id number] Referral ID Status Reason Start Date Expiration Date Visits Requested Visits Authorized [id number] New Request Auto-Generat ed Referral 4 08/28/2025 1 1 [facility] for referral (narrative)* Diagnostic Procedure Only (Routine) - Authorized Specialty Diagnoses / Procedures Referred By Contac t Referred To Contact US IMAGING Diagnoses Liver disease Procedures US ABD RIGHT UPPER QUADRANT US ABDOMINAL REAL TIME W/IMAGE LIMITED Merlin Loredo MD [address] [place] [address] Us Imaging [facility] Referral ID Status Reason Start Date Expiration Date Visits Requested Visits Authorized [id number] Authorized Auto-Generat ed Referral 4 09/27/2025 1 1 [facility] for referral (narrative)* Diagnostic Procedure Only (Routine) - Closed Specialty Diagnoses / Procedures Referred By Contac t Referred To Contact US IMAGING Diagnoses Liver disease Procedures US ABD RIGHT UPPER QUADRANT US ABDOMINAL REAL TIME W/IMAGE LIMITED Merlin Loredo MD [address] [place] [address] Us Imaging [facility] Referral ID Status Reason Start Date Expiration Date V isits Requested Visits Authorized [id number] Closed Auto-Generate d Referral 08/14/2024 04/13/2025 1 1 [facility] for referral (narrative)No reason for referral information availableW[facility] Work Phone: Reason for visit Narrative* Diagnostic Procedure Only (Routine) - Authorized Specialty Diagnoses / Procedures Referred By Contac t Referred To Contact US IMAGING Diagnoses Liver disease Procedures US ABD RT UPPER QUADRANT US ABDOMINAL REAL TIME W/IMAGE LIMITED Deborah [address] [place] [address] Us Imaging Referral ID Status Reason Start Date Expiration Date Visits Requested Visits Authorized [id number] Authorized Auto-Generat ed Referral 10/02/2023 4 4 [facility] for visit Narrative* Diagnostic Procedure Only (Routine) - Closed Specialty Diagnoses / Procedures Referred By Contac t Referred To Contact US IMAGING Diagnoses Liver disease Other cirrhosis of liver (HCC) Procedures US ABD RIGHT UPPER QUADRANT US ABDOMINAL REAL TIME W/IMAGE LIMITED Merlin Loredo MD [address] [place] [id number] Us Imaging [facility] Referral ID Status Reason Start Date Expiration Date V isits Requested Visits Authorized [id number] Closed Auto-Generate d Referral 09/16/2023 10/12/2024 1 1 [facility] for visit Narrative* Diagnostic Procedure Only (Routine) - Closed Specialty Diagnoses / Procedures Referred By Contac t Referred To Contact XR IMAGING Diagnoses Right hip pain Prostate cancer (HCC) Procedures XR HIP GENERAL 3V PELV/AP/LAT RIGHT RADEX HIP UNILATERAL WITH PELVIS 2-3 VIEWS Jonnathan Swift, DO [address] [place] [address] [place] [address] Referral ID Status Reason Start Date Expiration Date V isits Requested Visits Authorized [id number] Closed Auto-Generate d Referral 03/21/2024 04/20/2025 1 1 [facility] for visit Narrative* Outpatient Procedure (Routine) - Closed Specialty Diagnoses / Procedures Referred By Contac t Referred To Contact [facility] Diagnoses Liver disease Procedures EGD - THERAPEUTIC, EUS, OR TUBE INTERVENTIONS EGD BAND LIGATION ESOPHGEAL/[place] [address] [place] [address] [place] [id number] Referral ID Status Reason Start Date Expiration Date V isits Requested Visits Authorized [id number] Closed Auto-Generate d Referral 08/14/2024 03/14/2025 1 1 [facility] for visit Narrative* Outpatient Procedure (Routine) - Closed Specialty Diagnoses / Procedures Referred By Jaylynac t Referred To Contact [facility] [place] Diagnoses Liver disease Procedures DDI VIBRATION CONTROLLED TRANSIENT ELASTOGRAPHY (VCTE) LIVER ELASTOGRAPHY W/O IMAG W/I&R Merlin Loredo MD [address] [place] [address] [address] Referral ID Status Reason Start Date Expiration Date V isits Requested Visits Authorized [id number] Closed Auto-Generate d Referral 08/14/2024 03/14/2025 1 1 [facility] for visit Narrative* Diagnostic Procedure Only (Routine) - Closed Specialty Diagnoses / Procedures Referred By Contac t Referred To Contact US IMAGING Diagnoses Liver disease Procedures US ABD RIGHT UPPER QUADRANT US ABDOMINAL REAL TIME W/IMAGE LIMITED Merlin Loredo MD [address] [facility] [place] [address] Us Imaging [facility] Referral ID Status Reason Start Date Expiration Date V isits Requested Visits Authorized [id number] Closed Auto-Generate d Referral 08/14/2024 04/13/2025 1 1 [facility] for visit Narrative* Diagnostic Procedure Only (Routine) - Closed Specialty Diagnoses / Procedures Referred By Contac t Referred To Contact US IMAGING Diagnoses Liver disease Procedures US ABD RIGHT UPPER QUADRANT US ABDOMINAL REAL TIME W/IMAGE LIMITED Merlin Loredo MD [address] [place] [address] Phone: tel: fax: [place] [address] Referral ID Status Reason Start Date Expiration Date V isits Requested Visits Authorized [id number] Closed Auto-Generate d Referral 08/28/2024 09/27/2025 1 1 [facility] [place] Prior Authorization (Routine) - Closed Specialty Diagnoses / Procedures Referred By Suyapa t Referred To Contact Diagnoses Prostate cancer (HCC) Procedures LEUPROLIDE ACETATE SUSPNSION Jonnathan Swift, DO [address] [place] [address] Phone: tel: fax: Hematology/Oncology [address] [place] [address] Phone: tel: fax: Referral ID Status Reason Start Date Expiration Date Visits Re quested Visits Authorized [id number] Closed 09/28/2023 11/06/2024 99 99 [facility] Chief Complaint and Reason for Visit Chief Complaint C[address] Hern[address] [facility] 11/23 CONSULT PROSTATE CANCER Remote ALERT for [place] space oars, gold markers EVAL DISEASE, HIGH RISK PROSTATE Program out of MRI mode Programming for MRI 9 m fu NEWS ASSISTANT-D f/u @ 9AM annual in-clinic f/u Sees RECORDS ANALYSIS MANAGER@ 9:15 OTV OTV LEUNG FALL/RT HIP PAIN Reason for Visit Cirrhosis [id number] Biventricular ICD (implantable cardioverter-defibrillator) in place Chronic combined systolic and diastolic CHF (congestive heart failure) Longstanding persistent atrial fibrillation Nonischemic cardiomyopathy Right ventricular systolic dysfunction Biventricular ICD (implantable cardioverter-defibrillator) in place Chronic combined systolic and diastolic CHF (congestive heart failure) Longstanding persistent atrial fibrillation Nonischemic cardiomyopathy Right bundle branch 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 Right ventricular systolic dysfunction Biventricular ICD (implantable cardioverter-defibrillator) in place Chronic combined systolic and diastolic CHF (congestive heart failure) Longstanding persistent atrial fibrillation Nonischemic cardiomyopathy Right bundle branch 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 Right ventricular systolic dysfunction Cirrhosis Biventricular ICD (implantable cardioverter-defibrillator) in place Chronic combined systolic and diastolic CHF (congestive heart failure) Essential (primary) hypertension Nonischemic cardiomyopathy Biventricular ICD (implantable cardioverter-defibrillator) in place Chronic combined systolic and diastolic CHF (congestive heart failure) Longstanding persistent atrial fibrillation Nonischemic cardiomyopathy Right bundle branch 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 [id number] Chief Complaint Remote ALERT for [place] space oars, gold markers EVAL DISEASE, HIGH RISK PROSTATE Program out of MRI mode Programming for MRI 9 m fu NEWS ASSISTANT-D f/u @ 9AM annual in-clinic f/u Sees RECORDS ANALYSIS MANAGER@ 9:15 OTV OTV FALL/RT HIP PAIN RT MANN ARTHOPLASTI OTV OTV otv LEUNG otv 2 UNITS PRBC Reason for Visit Biventricular ICD (i mplantable cardioverter-defibrillator) in place Chronic combined systolic and diastolic CHF (congestive heart failure) Longstanding persistent atrial fibrillation Nonischemic cardiomyopathy Right ventricular systolic dysfunction Biventricular ICD (implantable cardioverter-defibrillator) in place Chronic combined systolic and diastolic CHF (congestive heart failure) Longstanding persistent atrial fibrillation Nonischemic cardiomyopathy Right bundle branch 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 Right ventricular systolic dysfunction Biventricular ICD (implantable cardioverter-defibrillator) in place Chronic combined systolic and diastolic CHF (congestive heart failure) Longstanding persistent atrial fibrillation Nonischemic cardiomyopathy Right bundle branch 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 Right ventricular systolic dysfunction Cirrhosis Biventricular ICD (implantable cardioverter-defibrillator) in place Chronic combined systolic and diastolic CHF (congestive heart failure) Essential (primary) hypertension Nonischemic cardiomyopathy Biventricular ICD (implantable cardioverter-defibrillator) in place Chronic combined systolic and diastolic CHF (congestive heart failure) Longstanding persistent atrial fibrillation Nonischemic cardiomyopathy Right bundle branch 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 [id number] Asthma Atrial fibrillation Benign prostate hyperplasia Cirrhosis of liver Closed right hip fracture Debility Diabetes mellitus Gastroesophageal reflux disease FARIAS (nonalcoholic steatohepatitis) Prostate cancer Seizure disorder Stroke Chronic kidney disease, stage 3a Chronic systolic congestive heart failure Prostate cancer [id number] Chief Complaint Remote ALERT for [place] space oars, gold markers EVAL DISEASE, HIGH RISK PROSTATE Program out of MRI mode Programming for MRI 9 m fu NEWS ASSISTANT-D f/u @ 9AM annual in-clinic f/u Sees RECORDS ANALYSIS MANAGER@ 9:15 OTV OTV FALL/RT HIP PAIN RT MANN ARTHOPLASTI OTV OTV otv otv 2 UNITS PRBC LEUNG LEUNG Reason for Visit Biventricular ICD (i mplantable cardioverter-defibrillator) in place Chronic combined systolic and diastolic CHF (congestive heart failure) Longstanding persistent atrial fibrillation Nonischemic cardiomyopathy Right ventricular systolic dysfunction Biventricular ICD (implantable cardioverter-defibrillator) in place Chronic combined systolic and diastolic CHF (congestive heart failure) Longstanding persistent atrial fibrillation Nonischemic cardiomyopathy Right bundle branch 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 Right ventricular systolic dysfunction Biventricular ICD (implantable cardioverter-defibrillator) in place Chronic combined systolic and diastolic CHF (congestive heart failure) Longstanding persistent atrial fibrillation Nonischemic cardiomyopathy Right bundle branch 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 Right ventricular systolic dysfunction Cirrhosis Biventricular ICD (implantable cardioverter-defibrillator) in place Chronic combined systolic and diastolic CHF (congestive heart failure) Essential (primary) hypertension Nonischemic cardiomyopathy Biventricular ICD (implantable cardioverter-defibrillator) in place Chronic combined systolic and diastolic CHF (congestive heart failure) Longstanding persistent atrial fibrillation Nonischemic cardiomyopathy Right bundle branch 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 [id number] Asthma Atrial fibrillation Benign prostate hyperplasia Cirrhosis of liver Closed right hip fracture Debility Diabetes mellitus Gastroesophageal reflux disease FARIAS (nonalcoholic steatohepatitis) Prostate cancer Seizure disorder Stroke Chronic kidney disease, stage 3a Chronic systolic congestive heart failure Prostate cancer [id number] Chief Complaint space oars, gold mar kers EVAL DISEASE, HIGH RISK PROSTATE Program out of MRI mode Programming for MRI 9 m fu NEWS ASSISTANT-D f/u @ 9AM annual in-clinic f/u Sees RECORDS ANALYSIS MANAGER@ 9:15 OTV OTV FALL/RT HIP PAIN RT MANN ARTHOPLASTI OTV OTV otv otv 2 UNITS PRBC LEUNG LEUNG CHEST PAIN, HYPOXIA CHEST PAIN, HYPOXIA CHEST PAIN, HYPOXIA CHEST PAIN, HYPOXIA Reason for Visit Biventricular ICD (i mplantable cardioverter-defibrillator) in place Chronic combined systolic and diastolic CHF (congestive heart failure) Longstanding persistent atrial fibrillation Nonischemic cardiomyopathy Right bundle branch 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 Right ventricular systolic dysfunction Biventricular ICD (implantable cardioverter-defibrillator) in place Chronic combined systolic and diastolic CHF (congestive heart failure) Longstanding persistent atrial fibrillation Nonischemic cardiomyopathy Right bundle branch 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 Right ventricular systolic dysfunction Cirrhosis Biventricular ICD (implantable cardioverter-defibrillator) in place Chronic combined systolic and diastolic CHF (congestive heart failure) Essential (primary) hypertension Nonischemic cardiomyopathy Biventricular ICD (implantable cardioverter-defibrillator) in place Chronic combined systolic and diastolic CHF (congestive heart failure) Longstanding persistent atrial fibrillation Nonischemic cardiomyopathy Right bundle branch 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 [id number] Atrial fibrillation Benign prostate hyperplasia Cirrhosis of liver Debility Diabetes mellitus Gastroesophageal reflux disease FARIAS (nonalcoholic steatohepatitis) Prostate cancer Seizure disorder Stroke Chronic kidney disease, stage 3a Asthma Chronic systolic congestive heart failure Closed right hip fracture Prostate cancer [id number] Acute heart failure with reduced ejection fraction and diastolic dysfunction Chest pain Acute and chronic respiratory failure with hypoxia Chief Complaint space oars, royer palacios EVAL DISEASE, HIGH RISK PROSTATE Program out of MRI mode Programming for MRI 9 m fu NEWS ASSISTANT-D f/u @ 9AM annual in-clinic f/u Sees RECORDS ANALYSIS MANAGER@ 9:15 OTV OTV FALL/RT HIP PAIN RT MANN ARTHOPLASTI OTV OTV otv otv 2 UNITS PRBC LEUNG LEUNG CHEST PAIN, HYPOXIA CHEST PAIN, HYPOXIA CHEST PAIN, HYPOXIA CHEST PAIN, HYPOXIA 3 mos remote NEWS ASSISTANT-D f/u SOB Reason for Visit Biventricular ICD (i mplantable cardioverter-defibrillator) in place Chronic combined systolic and diastolic CHF (congestive heart failure) Longstanding persistent atrial fibrillation Nonischemic cardiomyopathy Right bundle branch 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 Right ventricular systolic dysfunction Biventricular ICD (implantable cardioverter-defibrillator) in place Chronic combined systolic and diastolic CHF (congestive heart failure) Longstanding persistent atrial fibrillation Nonischemic cardiomyopathy Right bundle branch 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 Right ventricular systolic dysfunction Cirrhosis Biventricular ICD (implantable cardioverter-defibrillator) in place Chronic combined systolic and diastolic CHF (congestive heart failure) Essential (primary) hypertension Nonischemic cardiomyopathy Biventricular ICD (implantable cardioverter-defibrillator) in place Chronic combined systolic and diastolic CHF (congestive heart failure) Longstanding persistent atrial fibrillation Nonischemic cardiomyopathy Right bundle branch 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 [id number] Atrial fibrillation Benign prostate hyperplasia Cirrhosis of liver Debility Diabetes mellitus Gastroesophageal reflux disease FARIAS (nonalcoholic steatohepatitis) Prostate cancer Seizure disorder Stroke Chronic kidney disease, stage 3a Asthma Chronic systolic congestive heart failure Closed right hip fracture Prostate cancer [id number] Acute heart failure with reduced ejection fraction and diastolic dysfunction Chest pain Acute and chronic respiratory failure with hypoxia Biventricular ICD (implantable cardioverter-defibrillator) in place Chronic combined systolic and diastolic CHF (congestive heart failure) Longstanding persistent atrial fibrillation Nonischemic cardiomyopathy Right bundle branch 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 Chief Complaint OTV FALL/RT HIP PAIN RT MANN ARTHOPLASTI OTV OTV otv otv 2 UNITS PRBC LEUNG LEUNG CHEST PAIN, HYPOXIA CHEST PAIN, HYPOXIA CHEST PAIN, HYPOXIA CHEST PAIN, HYPOXIA 3 mos remote NEWS ASSISTANT-D f/u SOB DROP FOOT/ CANCER CARE REFERRAL EORDER Reason for Visit [id number] Atrial fibrillation Benign prostate hyperplasia Cirrhosis of liver Debility Diabetes mellitus Gastroesophageal reflux disease FARIAS (nonalcoholic steatohepatitis) Prostate cancer Seizure disorder Stroke Chronic kidney disease, stage 3a Asthma Chronic systolic congestive heart failure Closed right hip fracture Prostate cancer [id number] Chest pain Biventricular ICD (implantable cardioverter-defibrillator) in place Chronic combined systolic and diastolic CHF (congestive heart failure) Longstanding persistent atrial fibrillation Nonischemic cardiomyopathy Right bundle branch 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 Abnormality of gait and mobility History of CVA (cerebrovascular accident) Polyneuropathy Chief Complaint FALL/RT HIP PAIN RT MANN ARTHOPLASTI OTV OTV otv otv 2 UNITS PRBC LEUNG LEUNG CHEST PAIN, HYPOXIA CHEST PAIN, HYPOXIA CHEST PAIN, HYPOXIA CHEST PAIN, HYPOXIA 3 mos remote NEWS ASSISTANT-D f/u SOB DROP FOOT/ CANCER CARE REFERRAL EORDER altered loc Reason for Visit Atrial fibrillation Benign prostate hyperplasia Cirrhosis of liver Debility Diabetes mellitus Gastroesophageal reflux disease FARIAS (nonalcoholic steatohepatitis) Prostate cancer Seizure disorder Stroke Chronic kidney disease, stage 3a Asthma Chronic systolic congestive heart failure Closed right hip fracture Prostate cancer [id number] Chest pain Biventricular ICD (implantable cardioverter-defibrillator) in place Chronic combined systolic and diastolic CHF (congestive heart failure) Longstanding persistent atrial fibrillation Nonischemic cardiomyopathy Right bundle branch 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 Abnormality of gait and mobility History of CVA (cerebrovascular accident) Polyneuropathy Chief Complaint RT MANN ARTHOPLASTI 2 UNITS PRBC LEUNG LEUNG CHEST PAIN,HYPOXIA CHEST PAIN, HYPOXIA CHEST PAIN, HYPOXIA CHEST PAIN, HYPOXIA 3 mos remote NEWS ASSISTANT-D f/u SOB DROP FOOT/ CANCER CARE REFERRAL EORDER altered loc LEFT LEG WEAKNESS/CEREBROVASCULAR DISEASE 3 month f/u Reason for Visit Atrial fibrillation Benign prostate hyperplasia Cirrhosis of liver Debility Diabetes mellitus Gastroesophageal reflux disease FARIAS (nonalcoholic steatohepatitis) Prostate cancer Seizure disorder Stroke Chronic kidney disease, stage 3a Asthma Chronic systolic congestive heart failure Closed right hip fracture [id number] Chest pain Biventricular ICD (implantable cardioverter-defibrillator) in place Chronic combined systolic and diastolic CHF (congestive heart failure) Longstanding persistent atrial fibrillation Nonischemic cardiomyopathy Right bundle branch 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 Abnormality of gait and mobility History of CVA (cerebrovascular accident) Polyneuropathy [id number] Chief Complaint CHEST PAIN,HYPOXIA CHEST PAIN, HYPOXIA CHEST PAIN, HYPOXIA CHEST PAIN, HYPOXIA 3 mos remote NEWS ASSISTANT-D f/u SOB DROP FOOT/ CANCER CARE REFERRAL EORDER altered loc LEFT LEG WEAKNESS/CEREBROVASCULAR DISEASE 3 month f/u 2 M FU EORDER BILAT LOWER EXT ABDNORMAL GAIT Reason for Visit Chest pain Biventricular ICD (implantable cardioverter-defibrillator) in place Chronic combined systolic and diastolic CHF (congestive heart failure) Longstanding persistent atrial fibrillation Nonischemic cardiomyopathy Right bundle branch 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 Abnormality of gait and mobility History of CVA (cerebrovascular accident) Polyneuropathy [id number] Abnormality of gait and mobility Absent pedal pulses History of CVA (cerebrovascular accident) Polyneuropathy Chief Complaint LEFT LEG WEAKNESS/CE REBROVASCULAR DISEASE 3 month f/u 2 M FU EORDER BILAT LOWER EXT ABDNORMAL GAIT 6 m fu/ MARIBELL @ 11 device check/ MMM @ 11:30 psa Reason for Visit [id number] Abnormality of gait and mobility Absent pedal pulses History of CVA (cerebrovascular accident) Polyneuropathy Atrial fibrillation Cirrhosis Biventricular ICD (implantable cardioverter-defibrillator) in place Chronic combined systolic and diastolic CHF (congestive heart failure) Essential (primary) hypertension Nonischemic cardiomyopathy Atrial fibrillation Biventricular ICD (implantable cardioverter-defibrillator) in place Chronic combined systolic and diastolic CHF (congestive heart failure) Longstanding persistent atrial fibrillation Nonischemic cardiomyopathy Chief Complaint 2 M FU EORDER BILAT LOWER EXT ABDNORMAL GAIT 6 m fu/ MARIBELL @ 11 device check/ MMM @ 11:30 psa 3 mos remote NEWS ASSISTANT-D f/u HX RIGHT MCA CVA Reason for Visit Abnormality of gait and mobility Absent pedal pulses History of CVA (cerebrovascular accident) Polyneuropathy Atrial fibrillation Cirrhosis Biventricular ICD (implantable cardioverter-defibrillator) in place Chronic combined systolic and diastolic CHF (congestive heart failure) Essential (primary) hypertension Nonischemic cardiomyopathy Atrial fibrillation Biventricular ICD (implantable cardioverter-defibrillator) in place Chronic combined systolic and diastolic CHF (congestive heart failure) Longstanding persistent atrial fibrillation Nonischemic cardiomyopathy Biventricular ICD (implantable cardioverter-defibrillator) in place Chronic combined systolic and diastolic CHF (congestive heart failure) Longstanding persistent atrial fibrillation Nonischemic cardiomyopathy Right bundle branch 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 Chief Complaint psa 3 mos remote NEWS ASSISTANT-D f/u HX RIGHT MCA CVA 4 M FU THYROID NODULE 6 month f/u prostate Reason for Visit Biventricular ICD (i mplantable cardioverter-defibrillator) in place Chronic combined systolic and diastolic CHF (congestive heart failure) Longstanding persistent atrial fibrillation Nonischemic cardiomyopathy Right bundle branch 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 Parkinson's disease [id number] Abnormality of gait and mobility Absent pedal pulses History of CVA (cerebrovascular accident) Polyneuropathy [id number] Chief Complaint 4 M FU THYROID NODULE 6 month f/u prostate Rmote ALERT for VT PSA 3 mos NEWS ASSISTANT-D f/u ADULT FAILURE TO THRIVE ADULT FAILURE TO THRIVE Reason for Visit Parkinson's disease [id number] Abnormality of gait and mobility Absent pedal pulses History of CVA (cerebrovascular accident) Polyneuropathy [id number] Biventricular ICD (implantable cardioverter-defibrillator) in place Longstanding persistent atrial fibrillation Nonischemic cardiomyopathy Biventricular ICD (implantable cardioverter-defibrillator) in place Chronic combined systolic and diastolic CHF (congestive heart failure) Longstanding persistent atrial fibrillation Nonischemic cardiomyopathy Right bundle branch 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 Adult failure to thrive Debility Parkinson's disease Weakness History of CVA (cerebrovascular accident) Chief Complaint 4 M FU THYROID NODULE 6 month f/u prostate Rmote ALERT for VT PSA 3 mos NEWS ASSISTANT-D f/u ADULT FAILURE TO THRIVE ADULT FAILURE TO THRIVE ADULT FAILURE TO THRIVE ADULT FAILURE TO THRIVE Reason for Visit Parkinson's disease [id number] Abnormality of gait and mobility Absent pedal pulses History of CVA (cerebrovascular accident) Polyneuropathy [id number] Biventricular ICD (implantable cardioverter-defibrillator) in place Longstanding persistent atrial fibrillation Nonischemic cardiomyopathy Biventricular ICD (implantable cardioverter-defibrillator) in place Chronic combined systolic and diastolic CHF (congestive heart failure) Longstanding persistent atrial fibrillation Nonischemic cardiomyopathy Right bundle branch 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 Adult failure to thrive Debility Parkinson's disease Weakness History of CVA (cerebrovascular accident) Chief Complaint 4 M FU THYROID NODULE 6 month f/u prostate Rmote ALERT for VT PSA 3 mos NEWS ASSISTANT-D f/u ADULT FAILURE TO THRIVE ADULT FAILURE TO THRIVE ADULT FAILURE TO THRIVE ADULT FAILURE TO THRIVE VALENCIA Reason for Visit Parkinson's disease [id number] Abnormality of gait and mobility Absent pedal pulses History of CVA (cerebrovascular accident) Polyneuropathy [id number] Biventricular ICD (implantable cardioverter-defibrillator) in place Longstanding persistent atrial fibrillation Nonischemic cardiomyopathy Biventricular ICD (implantable cardioverter-defibrillator) in place Chronic combined systolic and diastolic CHF (congestive heart failure) Longstanding persistent atrial fibrillation Nonischemic cardiomyopathy Right bundle branch 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 Adult failure to thrive Debility Parkinson's disease Weakness History of CVA (cerebrovascular accident) Adult failure to thrive VALENCIA (acute kidney injury) Generalized weakness Transient hypotension Chief Complaint THYROID NODULE 6 month f/u prostate Rmote ALERT for VT PSA 3 mos NEWS ASSISTANT-D f/u ADULT FAILURE TO THRIVE ADULT FAILURE TO THRIVE ADULT FAILURE TO THRIVE ADULT FAILURE TO THRIVE VALENCIA VALENCIA VALENCIA VALENCIA VALENCIA SYPOXIA, VALENCIA Reason for Visit [id number] Biventricular ICD (implantable cardioverter-defibrillator) in place Longstanding persistent atrial fibrillation Nonischemic cardiomyopathy Biventricular ICD (implantable cardioverter-defibrillator) in place Chronic combined systolic and diastolic CHF (congestive heart failure) Longstanding persistent atrial fibrillation Nonischemic cardiomyopathy Right bundle branch 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 Adult failure to thrive VALENCIA (acute kidney injury) Generalized weakness Transient hypotension VALENCIA (acute kidney injury) Elevated troponin Generalized weakness Chief Complaint THYROID NODULE 6 month f/u prostate Rmote ALERT for VT PSA 3 mos NEWS ASSISTANT-D f/u ADULT FAILURE TO THRIVE ADULT FAILURE TO THRIVE ADULT FAILURE TO THRIVE ADULT FAILURE TO THRIVE VALENCIA VALENCIA VALENCIA VALENCIA VALENCIA HYPOXIA, VALENCIA SYPOXIA, VALENCIA HYPOXIA, VALENCIA Reason for Visit [id number] Biventricular ICD (implantable cardioverter-defibrillator) in place Longstanding persistent atrial fibrillation Nonischemic cardiomyopathy Biventricular ICD (implantable cardioverter-defibrillator) in place Chronic combined systolic and diastolic CHF (congestive heart failure) Longstanding persistent atrial fibrillation Nonischemic cardiomyopathy Right bundle branch 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 Adult failure to thrive VALENCIA (acute kidney injury) Generalized weakness Transient hypotension Adult failure to thrive VALENCIA (acute kidney injury) Elevated troponin Generalized weakness Chief Complaint Rmote ALERT for VT PSA 3 mos NEWS ASSISTANT-D f/u ADULT FAILURE TO THRIVE ADULT FAILURE TO THRIVE ADULT FAILURE TO THRIVE ADULT FAILURE TO THRIVE VALENCIA VALENCIA VALENCIA VALENCIA VALENCIA [facility] LABWORK HYPOXIA, VALENCIA SYPOXIA, VALENCIA HYPOXIA, VALENCIA [facility] LABWORK malignant neoplasm of prostate Reason for Visit Biventricular ICD (i mplantable cardioverter-defibrillator) in place Longstanding persistent atrial fibrillation Nonischemic cardiomyopathy Biventricular ICD (implantable cardioverter-defibrillator) in place Chronic combined systolic and diastolic CHF (congestive heart failure) Longstanding persistent atrial fibrillation Nonischemic cardiomyopathy Right bundle branch 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 Adult failure to thrive Generalized weakness Transient hypotension VALENCIA (acute kidney injury) Adult failure to thrive Elevated troponin Generalized weakness VALENCIA (acute kidney injury) Chief Complaint ADULT FAILURE TO THR FLETCHER ADULT FAILURE TO THRIVE ADULT FAILURE TO THRIVE ADULT FAILURE TO THRIVE VALENCIA VALENCIA VALENCIA VALENCIA ADMISSION EXAM VALENCIA [facility] ADMISISON EXAM HYPOXIA, VALENCIA FOLLOW UP SYPOXIA, VALENCIA HYPOXIA, VALENCIA [facility] LAB WORK malignant neoplasm of prostate LAB WORK LAB WORK LABWORK LABWORK LABWORK 6 M FU altered mental status altered mental status Reason for Visit Adult failure to thr fletcher Generalized weakness Transient hypotension VALENCIA (acute kidney injury) Adult failure to thrive Elevated troponin Generalized weakness VALENCIA (acute kidney injury) Atrial fibrillation Cirrhosis Biventricular ICD (implantable cardioverter-defibrillator) in place Chronic combined systolic and diastolic CHF (congestive heart failure) Essential (primary) hypertension Nonischemic cardiomyopathy Chief Complaint ADULT FAILURE TO THR FLETCHER ADULT FAILURE TO THRIVE ADULT FAILURE TO THRIVE ADULT FAILURE TO THRIVE VALENCIA VALENCIA VALENCIA VALENCIA ADMISSION EXAM VALENCIA [facility]WORK ADMISISON EXAM HYPOXIA, VALENCIA FOLLOW UP SYPOXIA, VALENCIA HYPOXIA, VALENCIA [facility] LAB WORK malignant neoplasm of prostate LAB WORK LAB WORK LABWORK LABWORK LABWORK 6 M FU FPC LAB WORK VALENCIA altered mental status VALENCIA VALENCIA VALENCIA VALENCIA VALENCIA VALENCIA VALNECIA Reason for Visit Adult failure to thr fletcher Generalized weakness Transient hypotension VLAENCIA (acute kidney injury) Adult failure to thrive Elevated troponin Generalized weakness VALENCIA (acute kidney injury) Atrial fibrillation Cirrhosis Biventricular ICD (implantable cardioverter-defibrillator) in place Chronic combined systolic and diastolic CHF (congestive heart failure) Essential (primary) hypertension Nonischemic cardiomyopathy Acute alteration in mental status Acute dehydration VALENCIA (acute kidney injury) Elevated troponin Hyperbilirubinemia Leukocytosis Nausea & vomiting Right hip pain Toxic metabolic encephalopathy Chief Complaint ADULT FAILURE TO THR FLETCHER ADULT FAILURE TO THRIVE ADULT FAILURE TO THRIVE ADULT FAILURE TO THRIVE VALENCIA VALENCIA VALENCIA VALENCIA ADMISSION EXAM VALENCIA [facility] ADMISISON EXAM HYPOXIA, VALENCIA FOLLOW UP SYPOXIA, VALENCIA HYPOXIA, VALENCIA [facility]WORK LAB WORK malignant neoplasm of prostate LAB WORK LAB WORK LABWORK LABWORK LABWORK 6 M FU FPC LAB WORK [facility]PC LABWORK VALENCIA altered mental status VALENCIA VALENCIA VALENCIA VALENCIA VALENCIA VALENCIA VALENCIA Reason for Visit Adult failure to thr fletcher Generalized weakness Transient hypotension VALENCIA (acute kidney injury) Adult failure to thrive Elevated troponin Generalized weakness VALENCIA (acute kidney injury) Atrial fibrillation Cirrhosis Biventricular ICD (implantable cardioverter-defibrillator) in place Chronic combined systolic and diastolic CHF (congestive heart failure) Essential (primary) hypertension Nonischemic cardiomyopathy Acute alteration in mental status Acute dehydration VALENCIA (acute kidney injury) Elevated troponin Hyperbilirubinemia Leukocytosis Nausea & vomiting Right hip pain Toxic metabolic encephalopathy Chief Complaint ADULT FAILURE TO THR FLETCHER ADULT FAILURE TO THRIVE ADULT FAILURE TO THRIVE ADULT FAILURE TO THRIVE VALENCIA VALENCIA VALENCIA VALENCIA ADMISSION EXAM VALENCIA [facility] ADMISISON EXAM HYPOXIA, VALENCIA FOLLOW UP SYPOXIA, VALENCIA HYPOXIA, VALENCIA [facility] LAB WORK malignant neoplasm of prostate LAB WORK LAB WORK LABWORK LABWORK LABWORK 6 M FPC LAB WORK FPC LABWORK FPC LABWORK VALENCIA altered mental status VALENCIA VALENCIA VALENCIA VALENCIA VALENCIA VALENCIA VALENCIA LABWORK 6 month f/u prostate [facility] LAB WORK Reason for Visit Adult failure to thr fletcher Generalized weakness Transient hypotension VALENCIA (acute kidney injury) Adult failure to thrive Elevated troponin Generalized weakness VALENCIA (acute kidney injury) Atrial fibrillation Cirrhosis Biventricular ICD (implantable cardioverter-defibrillator) in place Chronic combined systolic and diastolic CHF (congestive heart failure) Essential (primary) hypertension Nonischemic cardiomyopathy Acute alteration in mental status Acute dehydration Elevated troponin Hyperbilirubinemia Leukocytosis Nausea & vomiting Right hip pain VALENCIA (acute kidney injury) Toxic metabolic encephalopathy [id number] Chief Complaint ADULT FAILURE TO THR FLETCHER ADULT FAILURE TO THRIVE ADULT FAILURE TO THRIVE ADULT FAILURE TO THRIVE VALENCIA VALENCIA VALENCIA VALENCIA ADMISSION EXAM VALENCIA [facility]WORK ADMISISON EXAM HYPOXIA, VALENCIA FOLLOW UP SYPOXIA, VALENCIA HYPOXIA, VALENCIA [facility] LAB WORK malignant neoplasm of prostate LAB WORK LAB WORK LABWORK LABWORK LABWORK 6 M FU FPC LAB WORK FPC LABWORK FPC LABWORK VALENCIA altered mental status VALENCIA VALENCIA VALENCIA VALENCIA VALENCIA VALENCIA VALENCIA LABWORK [facility] LABWORK 6 month f/u prostate [facility] LAB WORK Reason for Visit Adult failure to thr fletcher Generalized weakness Transient hypotension VALENCIA (acute kidney injury) Adult failure to thrive Elevated troponin Generalized weakness VALENCIA (acute kidney injury) Atrial fibrillation Cirrhosis Biventricular ICD (implantable cardioverter-defibrillator) in place Chronic combined systolic and diastolic CHF (congestive heart failure) Essential (primary) hypertension Nonischemic cardiomyopathy Acute alteration in mental status Acute dehydration Elevated troponin Hyperbilirubinemia Leukocytosis Nausea & vomiting Right hip pain VALENCIA (acute kidney injury) Toxic metabolic encephalopathy [id number] Chief Complaint ADULT FAILURE TO THR FLETCHER ADULT FAILURE TO THRIVE ADULT FAILURE TO THRIVE ADULT FAILURE TO THRIVE VALENCIA VALENCIA VALENCIA VALENCIA ADMISSION EXAM VALENCIA [facility] LABWORK ADMISISON EXAM HYPOXIA, VALENCIA FOLLOW UP SYPOXIA, VALENCIA HYPOXIA, VALENCIA [facility]WORK LAB WORK malignant neoplasm of prostate LAB WORK LAB WORK LABWORK LABWORK LABWORK 6 M FU FPC LAB WORK FPC LABWORK FPC LABWORK VALENCIA altered mental status VALENCIA VALENCIA VALENCIA VALENCIA VALENCIA VALENCIA VALENCIA LABWORK [facility] LABWORK 6 month f/u prostate [facility]PC LAB WORK [facility] LAB WORK Reason for Visit Adult failure to thr fletcher Generalized weakness Transient hypotension VALENCIA (acute kidney injury) Adult failure to thrive Elevated troponin Generalized weakness VALENCIA (acute kidney injury) Atrial fibrillation Cirrhosis Biventricular ICD (implantable cardioverter-defibrillator) in place Chronic combined systolic and diastolic CHF (congestive heart failure) Essential (primary) hypertension Nonischemic cardiomyopathy Acute alteration in mental status Acute dehydration Elevated troponin Hyperbilirubinemia Leukocytosis Nausea & vomiting Right hip pain VALENCIA (acute kidney injury) Toxic metabolic encephalopathy [id number] Chief Complaint HYPOXIA, VALENCIA FOLLOW UP SYPOXIA, VALENCIA HYPOXIA, VALENCIA [facility]WORK LAB WORK malignant neoplasm of prostate LAB WORK LAB WORK LABWORK LABWORK LABWORK 6 M FU FPC LAB WORK FPC LABWORK FPC LABWORK VALENCIA altered mental status VALENCIA VALENCIA VALENCIA VALENCIA VALENCIA VALENCIA VALENCIA LABWORK [facility] LABWORK 6 month f/u prostate [facility]PC LAB WORK [facility]PC LABWORK FPC LAB WORK [facility]PC LABWORK Reason for Visit Adult failure to thr fletcher Elevated troponin Generalized weakness VALENCIA (acute kidney injury) Atrial fibrillation Cirrhosis Biventricular ICD (implantable cardioverter-defibrillator) in place Chronic combined systolic and diastolic CHF (congestive heart failure) Essential (primary) hypertension Nonischemic cardiomyopathy Acute alteration in mental status Acute dehydration Elevated troponin Hyperbilirubinemia Leukocytosis Nausea & vomiting Right hip pain VALENCIA (acute kidney injury) Toxic metabolic encephalopathy [id number] Chief Complaint HYPOXIA, VALENCIA HYPOXIA, VALENCIA [facility]WORK LAB WORK malignant neoplasm of prostate LAB WORK LAB WORK LABWORK LABWORK LABWORK 6 M FU FPC LAB WORK FPC LABWORK FPC LABWORK VALENCIA altered mental status VALENCIA VALENCIA VALENCIA VALENCIA VALENCIA VALENCIA VALENCIA LABWORK [facility]PC LABWORK 6 month f/u prostate FPC LAB WORK FPC LABWORK FPC LAB WORK FPC LABWORK [facility]PC LAB WORK Reason for Visit Adult failure to thr fletcher Elevated troponin Generalized weakness VALENCIA (acute kidney injury) Atrial fibrillation Cirrhosis Biventricular ICD (implantable cardioverter-defibrillator) in place Chronic combined systolic and diastolic CHF (congestive heart failure) Essential (primary) hypertension Nonischemic cardiomyopathy Acute alteration in mental status Acute dehydration Elevated troponin Hyperbilirubinemia Leukocytosis Nausea & vomiting Right hip pain VALENCIA (acute kidney injury) Toxic metabolic encephalopathy [id number] Chief Complaint LAB WORK LAB WORK LABWORK LABWORK LABWORK 6 M FU FPC LAB WORK FPC LABWORK [facility]PC LABWORK VALENCIA altered mental status VALENCIA VALENCIA VALENCIA VALENCIA VALENCIA VALENCIA VALENCIA LABWORK [facility] LABWORK 6 month f/u prostate FPC LAB WORK FPC LABWORK FPC LAB WORK FPC LABWORK FPC LAB WORK [facility]PC LABWORK Reason for Visit Atrial fibrillation Cirrhosis Biventricular ICD (implantable cardioverter-defibrillator) in place Chronic combined systolic and diastolic CHF (congestive heart failure) Essential (primary) hypertension Nonischemic cardiomyopathy Acute alteration in mental status Acute dehydration Elevated troponin Hyperbilirubinemia Leukocytosis Nausea & vomiting Right hip pain VALENCIA (acute kidney injury) Toxic metabolic encephalopathy [id number] Chief Complaint VALENCIA VALENCIA LABWORK [facility]PC LABWORK 6 month f/u prostate FPC LAB WORK [facility]PC LABWORK [facility]PC LAB WORK Pacer Check Remote [facility]PC LABWORK FPC LAB WORK FPC LABWORK 1 Y FU 4 M FU LABWORK Reason for Visit Acute alteration in mental status Acute dehydration Elevated troponin Hyperbilirubinemia Leukocytosis Nausea & vomiting Right hip pain VALENCIA (acute kidney injury) Toxic metabolic encephalopathy [id number] Atrial fibrillation Cirrhosis Biventricular ICD (implantable cardioverter-defibrillator) in place Chronic combined systolic and diastolic CHF (congestive heart failure) Essential (primary) hypertension Nonischemic cardiomyopathy Chief Complaint 1 Y FU 4 M FU LABWORK [facility] LAB WORK Reason for Visit Atrial fibrillation Cirrhosis Biventricular ICD (implantable cardioverter-defibrillator) in place Chronic combined systolic and diastolic CHF (congestive heart failure) Essential (primary) hypertension Nonischemic cardiomyopathy Chief Complaint 1 Y FU 4 M FU LABWORK [facility] WORK Pacer Check Remote LABWORK Reason for Visit Atrial fibrillation Cirrhosis Biventricular ICD (implantable cardioverter-defibrillator) in place Chronic combined systolic and diastolic CHF (congestive heart failure) Essential (primary) hypertension Nonischemic cardiomyopathy Chief Complaint 1 Y FU 4 M FU LABWORK [facility] WORK Pacer Check Remote LABWORK LABWORK Reason for Visit Atrial fibrillation Cirrhosis Biventricular ICD (implantable cardioverter-defibrillator) in place Chronic combined systolic and diastolic CHF (congestive heart failure) Essential (primary) hypertension Nonischemic cardiomyopathy Chief Complaint 1 Y FU 4 M FU LABWORK [facility] WORK Pacer Check Remote LABWORK LABWORK LABWORK Reason for Visit Atrial fibrillation Cirrhosis Biventricular ICD (implantable cardioverter-defibrillator) in place Chronic combined systolic and diastolic CHF (congestive heart failure) Essential (primary) hypertension Nonischemic cardiomyopathy Chief Complaint 1 Y FU 4 M FU LABWORK [facility] WORK Pacer Check Remote LABWORK LABWORK LABWORK [facility] LAB WORK Reason for Visit Atrial fibrillation Cirrhosis Biventricular ICD (implantable cardioverter-defibrillator) in place Chronic combined systolic and diastolic CHF (congestive heart failure) Essential (primary) hypertension Nonischemic cardiomyopathy Chief Complaint Admit Date [facility] LAB WORK October 22 5:00am [facility] WORK October 26 4:00am LABWORK November 23, 2024 5 :00am Pacer Check Remote December 12, 2024 5 :01am 9 M FU December 12, 2024 1 1:10am LABWORK December 21, 2024 5:00am LABWORK January 18, 2025 5:0 0am FOLLOW UP January 24, 2025 8:2 1am Reason for Visit Admit Date Atrial fibrillation December 12, 2024 1 1:10am Cirrhosis December 12, 2024 1 1:10am 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 December 12, 2024 11:10am Chronic combined systolic an d diastolic CHF (congestive heart failure) December 12, 2024 11:10am Essential (primary) hypertension [id number] 11:10am Nonischemic cardiomyopathy December 12, 2024 11:10am Muscle hypertonia January 24, 2025 8:2 1am Abnormality of gait and mobility January [id number] 8:21am Parkinson's disease January 24, 2025 8:2 1am Chief Complaint Admit Date LABWORK November 23, 2024 5 :00am Pacer Check Remote December 12, 2024 5 :01am 9 M FU December 12, 2024 1 1:10am LABWORK December 21, 2024 5:00am LABWORK January 18, 2025 5:0 0am FOLLOW UP January 24, 2025 8:2 1am [facility] LAB WORK February 15, 2025 6 :30am Pacer Check Remote March 13, 2025 5:01am Chief Complaint Admit Date Pacer Check Remote December 12, 2024 5 :01am 9 M FU December 12, 2024 1 1:10am LABWORK December 21, 2024 5:00am LABWORK January 18, 2025 5:0 0am FOLLOW UP January 24, 2025 8:2 1am [facility] WORK February 15, 2025 6 :30am Pacer Check Remote March 13, 2025 5:01am LABWORK March 15, 2025 6:40am Chief Complaint Admit Date Pacer Check Remote December 12, 2024 5 :01am 9 M FU December 12, 2024 1 1:10am LABWORK December 21, 2024 5:00am LABWORK January 18, 2025 5:0 0am FOLLOW UP January 24, 2025 8:2 1am [facility] WORK February 15, 2025 6 :30am [facility] LAB WORK March 11, 2025 5:00 am Pacer Check Remote March 13, 2025 5:01am LABWORK March 15, 2025 6:40am Family History No Family History Records Found Relationship Condition Age at Onset Recorded Date/T shelly daughter Cardiac disease Unknown Diabetes mellitus Unknown mother Disorder of thyroid Unknown Advance Directives No Advanced Directives Records Found Advance Directive Response Recorded Date/ Time Name of Medical Power of Exerciser Horse BOB FERRARO December 30, 2021 2:54pm Advance Directives Yes May 05 11:01am Living Will Yes February 10, 2022 3:26am Power of Exerciser Horse Yes February 10 3:26am Documents on File Type Date Recorded 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 Advance Directives and Livin g Will 02/11/2022 2:47 PM Advance Directives and Livin g Will 02/11/2022 3:13 PM Power of Exerciser Horse 02/11/2022 3:13 PM Latest Code Status on File Code Status Date Activated Date Inactivated Comments Full Code 02/10/2022 3:42 PM 02/19/2022 12:43 PM Documents on File Type Date Recorded 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 anation Advance Directives and Livin g Will 02/19/2022 7:10 PM Advance Directives and Livin g Will 02/19/2022 7:11 PM Power of Exerciser Horse 02/19/2022 7:10 PM Advance Directives and Livin g Will 02/11/2022 2:47 PM Advance Directives and Livin g Will 02/11/2022 3:13 PM Power of Exerciser Horse 02/11/2022 3:13 PM Documents on File Type Date Recorded 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 Advance Directives and Livin g Will 02/19/2022 7:10 PM Advance Directives and Livin g Will 02/19/2022 7:11 PM Power of Exerciser Horse 02/19/2022 7:10 PM Advance Directives and Livin g Will 02/11/2022 3:13 PM Power of Exerciser Horse 02/11/2022 3:13 PM Documents on File Type Date Recorded 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 anation Advance Directives and Livin g Will 02/19/2022 7:10 PM Advance Directives and Livin g Will 02/19/2022 7:11 PM Power of Exerciser Horse 02/19/2022 7:10 PM Advance Directives and Livin g Will 02/11/2022 3:13 PM Power of Exerciser Horse 02/11/2022 3:13 PM Latest Code Status on File Code Status Date Activated Date Inactivated Comments Full Code 02/10/2022 3:42 PM 02/19/2022 12:43 PM Advance Directive Response Recorded Date/ Time Name of Medical Power of Exerciser Horse BOBMORRO FERRARO December 30, 2021 2:54pm Name of Medical Power of Exerciser Horse BOB FERRARO February 10, 2022 3:26am Advance Directives Yes May 05 11:01am Living Will Yes February 19, 2022 4:02pm Power of Exerciser Horse Yes February 19 4:02pm Advance Directive Response Recorded Date/ Time Name of Medical Power of Exerciser Horse BOB FERRARO December 30, 2021 2:54pm Name of Medical Power of Exerciser Horse BOB FERRARO February 10, 2022 3:26am Name of Medical Power of Exerciser Horse Bob Ferraro February 19, 2022 4:02pm Name of Medical Power of Exerciser Horse Bob-Signific ant Other April 25, 2022 8:30pm Advance Directives Yes May 05 11:01am Living Will Yes April 25, 2022 8:30pm Power of Exerciser Horse Yes April 25 8:30pm Advance Directive Response Recorded Date/ Time Name of Medical Power of Exerciser Horse BOB FERRARO December 30, 2021 2:54pm Name of Medical Power of Exerciser Horse BOB FERRARO February 10, 2022 3:26am Name of Medical Power of Exerciser Horse Bob Ferraro February 19, 2022 4:02pm Name of Medical Power of Exerciser Horse Bob-Signific ant Other April 25, 2022 8:30pm Advance Directives Yes May 05 11:01am Living Will No April 30, 2022 2:25am Power of Exerciser Horse No April 30 2:25am Advance Directive Response Recorded Date/ Time Name of Medical Power of Exerciser Horse BOB FERRARO February 10, 2022 3:26am Name of Medical Power of Exerciser Horse Bob Ferraro February 19, 2022 4:02pm Name of Medical Power of Exerciser Horse Bob-Signific ant Other April 25, 2022 8:30pm Advance Directives Yes May 05 11:01am Living Will No April 30, 2022 2:25am Power of Exerciser Horse No April 30 2:25am Advance Directive Response Recorded Date/ Time Name of Medical Power of Exerciser Horse BOB FERRARO February 10, 2022 3:26am Name of Medical Power of Exerciser Horse Bob Ferraro February 19, 2022 4:02pm Name of Medical Power of Exerciser Horse Bob-Signific ant Other April 25, 2022 8:30pm Name of Medical Power of Exerciser Horse bob ferraro June 07, 2022 1:43pm Advance Directives Yes May 05 11:01am Living Will Yes June 07, 2022 1:43pm Power of Exerciser Horse Yes June 07 1:43pm Advance Directive Response Recorded Date/ Time Name of Medical Power of Exerciser Horse Bob Ferraro February 19, 2022 4:02pm Name of Medical Power of Exerciser Horse Katie ant Other April 25, 2022 8:30pm Name of Medical Power of Exerciser Horse bob ferraro June 07, 2022 1:43pm Advance Directives Yes May 05 11:01am Living Will Yes June 07, 2022 1:43pm Power of Exerciser Horse Yes June 07 1:43pm Advance Directive Response Recorded Date/ Time Name of Medical Power of Exerciser Horse Katie ant Other April 25, 2022 8:30pm Name of Medical Power of Exerciser Horse bob ferraro June 07, 2022 1:43pm Advance Directives Yes May 05 11:01am Living Will Yes June 07, 2022 1:43pm Power of Exerciser Horse Yes June 07 1:43pm Advance Directive Response Recorded Date/ Time Advance Directives Yes May 05 10:01am Living Will Yes June 07, 2022 12:43pm Power of Exerciser Horse Yes June 07 12:43pm Advance Directive Response Recorded Date/ Time Name of Medical Power of Exerciser Horse BOB April 10, 2023 12:51pm Advance Directives Yes May 05 11:01am Living Will Yes April 10, 2023 1 2:51pm Power of Exerciser Horse Yes April 10, 2023 12:51pm Advance Directive Response Recorded Date/ Time Name of Medical Power of Exerciser Horse Bob Ferraro April 10, 2023 10:19pm Advance Directives Yes May 05 11:01am Living Will Yes April 10, 2023 1 0:19pm Power of Exerciser Horse Yes April 10, 2023 10:19pm Advance Directive Response Recorded Date/ Time Name of Medical Power of Exerciser Horse Bob Ferraro April 10, 2023 10:19pm Name of Medical Power of Exerciser Horse Bob Ferraro April 13, 2023 2:13pm Advance Directives Yes May 05 11:01am Living Will Yes April 13, 2023 2 :13pm Power of Exerciser Horse Yes April 13, 2023 2:13pm Advance Directive Response Recorded Date/ Time Name of Medical Power of Exerciser Horse Bob Ferraro April 10, 2023 10:19pm Name of Medical Power of Exerciser Horse bob ferraro April 13, 2023 8:45pm Advance Directives Yes May 05 11:01am Living Will No April 23, 2023 10:16am Power of Exerciser Horse No April 23 10:16am Advance Directive Response Recorded Date/ Time Name of Medical Power of Exerciser Horse Bob Ferraro April 10, 2023 10:19pm Name of Medical Power of Exerciser Horse bob ferraro April 13, 2023 8:45pm Advance Directives Yes May 05 11:01am Living Will No April 23, 2023 3:00pm Power of Exerciser Horse No April 23 3:00pm Advance Directive Response Recorded Date/ Time Name of Medical Power of Exerciser Horse Bob Ferraro April 10, 2023 10:19pm Name of Medical Power of Exerciser Horse bob ferraro April 13, 2023 8:45pm Advance Directives Yes May 05 11:01am Living Will No June 21 12:26pm Power of Exerciser Horse No June 21 12:26pm Advance Directive Response Recorded Date/ Time Name of Medical Power of Exerciser Horse Bob Ferraro April 10, 2023 10:19pm Name of Medical Power of Exerciser Horse bob ferraro April 13, 2023 8:45pm Advance Directives Yes May 05 11:01am Living Will No June 21 3 5:55pm Power of Exerciser Horse No June 21 023 5:55pm Advance Directive Response Recorded Date/ Time Advance Directives Yes May 05 11:01am Living Will No June 21 3 5:55pm Power of Exerciser Horse No June 21 023 5:55pm Advance Directive Response Recorded Date/ Time Advance Directives Yes May 05 10:01am Living Will No June 21 3 4:55pm Power of Exerciser Horse No June 21 023 4:55pm Advance Directive Response Recorded Date/ Time Living Will No June 21 3 5:55pm Do you have a Healthcare Power of Exerciser Horse? No June 21, 2023 5:55pm Advance Directives Yes June 19, 2024 2:43pm Reason for Referral Specialty Diagnoses / Procedures Referred By Contac t Referred To Contact Radiology Diagnoses Low back pain without sciatica, unspecified back pain laterality, unspecified chronicity Procedures MR Lumbar Spine Without Contrast Jayla, Munira Romero MD [address] [place] [address] Referral ID Status Reason Start Date Expiration Date V isits Requested Visits Authorized [id number] Authorized 03/30/2022 03/30/2023 1 1 Specialty Diagnoses / Procedures Referred By Contac t Referred To Contact Orthopedics Diagnoses 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 [facility] [place] [address] Referral ID Status Reason Start Date Expiration Date Visits Requested Visits Authorized [id number] Authorized PCP Requested Referral 03/25/2024 03/25/2025 1 1 Specialty Diagnoses / Procedures Referred By Contac t Referred To Contact Pain Management Diagnoses Chronic right hip pain Procedures CONSULT TO PAIN MGT OFFICE/OUTPATIENT NEW HIGH MDM 60 MINUTES Maximo Serrano MD [address] [place] [address] Referral ID Status Reason Start Date Expiration Date Visits Requested Visits Authorized [id number] Authorized PCP Requested Referral 06/13/2024 06/13/2025 1 1 Summary Purpose Additional Source Comments Source Comments (unrecognize d section and content) In the event this informatio n is protected by the Federal Confidentiality of Alcohol and Drug Abuse Patient Records regulations: The Federal rules restrict any use of the information to criminally investigate or prosecute any alcohol or drug abuse patient.[facility] the event this information is protected by the Federal Confidentiality of Alcohol and Drug Abuse Patient Records regulations: The Federal rules restrict any use of the information to criminally investigate or prosecute any alcohol or drug abuse patient.[facility]In the event this information is protected by the Federal Confidentiality of Alcohol and Drug Abuse Patient Records regulations: The Federal rules restrict any use of the information to criminally investigate or prosecute any alcohol or drug abuse patient.[facility]In the event this information is protected by the Federal Confidentiality of Alcohol and Drug Abuse Patient Records regulations: The Federal rules restrict any use of the information to criminally investigate or prosecute any alcohol or drug abuse patient.[facility]In the event this information is protected by the Federal Confidentiality of Alcohol and Drug Abuse Patient Records regulations: The Federal rules restrict any use of the information to criminally investigate or prosecute any alcohol or drug abuse patient.[facility]In the event this information is protected by the Federal Confidentiality of Alcohol and Drug Abuse Patient Records regulations: The Federal rules restrict any use of the information to criminally investigate or prosecute any alcohol or drug abuse patient.[facility]In the event this information is protected by the Federal Confidentiality of Alcohol and Drug Abuse Patient Records regulations: The Federal rules restrict any use of the information to criminally investigate or prosecute any alcohol or drug abuse patient.[facility]In the event this information is protected by the Federal Confidentiality of Alcohol and Drug Abuse Patient Records regulations: The Federal rules restrict any use of the information to criminally investigate or prosecute any alcohol or drug abuse patient.[facility]In the event this information is protected by the Federal Confidentiality of Alcohol and Drug Abuse Patient Records regulations: The Federal rules restrict any use of the information to criminally investigate or prosecute any alcohol or drug abuse patient.[facility]In the event this information is protected by the Federal Confidentiality of Alcohol and Drug Abuse Patient Records regulations: The Federal rules restrict any use of the information to criminally investigate or prosecute any alcohol or drug abuse patient.[facility]In the event this information is protected by the Federal Confidentiality of Alcohol and Drug Abuse Patient Records regulations: The Federal rules restrict any use of the information to criminally investigate or prosecute any alcohol or drug abuse patient.[facility]In the event this information is protected by the Federal Confidentiality of Alcohol and Drug Abuse Patient Records regulations: The Federal rules restrict any use of the information to criminally investigate or prosecute any alcohol or drug abuse patient.[facility]In the event this information is protected by the Federal Confidentiality of Alcohol and Drug Abuse Patient Records regulations: The Federal rules restrict any use of the information to criminally investigate or prosecute any alcohol or drug abuse patient.[facility]In the event this information is protected by the Federal Confidentiality of Alcohol and Drug Abuse Patient Records regulations: The Federal rules restrict any use of the information to criminally investigate or prosecute any alcohol or drug abuse patient.[facility]In the event this information is protected by the Federal Confidentiality of Alcohol and Drug Abuse Patient Records regulations: The Federal rules restrict any use of the information to criminally investigate or prosecute any alcohol or drug abuse patient.[facility]In the event this information is protected by the Federal Confidentiality of Alcohol and Drug Abuse Patient Records regulations: The Federal rules restrict any use of the information to criminally investigate or prosecute any alcohol or drug abuse patient.[facility]In the event this information is protected by the Federal Confidentiality of Alcohol and Drug Abuse Patient Records regulations: The Federal rules restrict any use of the information to criminally investigate or prosecute any alcohol or drug abuse patient.[facility]In the event this information is protected by the Federal Confidentiality of Alcohol and Drug Abuse Patient Records regulations: The Federal rules restrict any use of the information to criminally investigate or prosecute any alcohol or drug abuse patient.[facility]In the event this information is protected by the Federal Confidentiality of Alcohol and Drug Abuse Patient Records regulations: The Federal rules restrict any use of the information to criminally investigate or prosecute any alcohol or drug abuse patient.[facility]In the event this information is protected by the Federal Confidentiality of Alcohol and Drug Abuse Patient Records regulations: The Federal rules restrict any use of the information to criminally investigate or prosecute any alcohol or drug abuse patient.[facility]In the event this information is protected by the Federal Confidentiality of Alcohol and Drug Abuse Patient Records regulations: The Federal rules restrict any use of the information to criminally investigate or prosecute any alcohol or drug abuse patient.[facility]In the event this information is protected by the Federal Confidentiality of Alcohol and Drug Abuse Patient Records regulations: The Federal rules restrict any use of the information to criminally investigate or prosecute any alcohol or drug abuse patient.[facility]In the event this information is protected by the Federal Confidentiality of Alcohol and Drug Abuse Patient Records regulations: The Federal rules restrict any use of the information to criminally investigate or prosecute any alcohol or drug abuse patient.[facility]In the event this information is protected by the Federal Confidentiality of Alcohol and Drug Abuse Patient Records regulations: The Federal rules restrict any use of the information to criminally investigate or prosecute any alcohol or drug abuse patient.[facility]In the event this information is protected by the Federal Confidentiality of Alcohol and Drug Abuse Patient Records regulations: The Federal rules restrict any use of the information to criminally investigate or prosecute any alcohol or drug abuse patient.[facility]In the event this information is protected by the Federal Confidentiality of Alcohol and Drug Abuse Patient Records regulations: The Federal rules restrict any use of the information to criminally investigate or prosecute any alcohol or drug abuse patient.[facility]In the event this information is protected by the Federal Confidentiality of Alcohol and Drug Abuse Patient Records regulations: The Federal rules restrict any use of the information to criminally investigate or prosecute any alcohol or drug abuse patient.[facility]In the event this information is protected by the Federal Confidentiality of Alcohol and Drug Abuse Patient Records regulations: The Federal rules restrict any use of the information to criminally investigate or prosecute any alcohol or drug abuse patient.[facility]In the event this information is protected by the Federal Confidentiality of Alcohol and Drug Abuse Patient Records regulations: The Federal rules restrict any use of the information to criminally investigate or prosecute any alcohol or drug abuse patient.[facility]In the event this information is protected by the Federal Confidentiality of Alcohol and Drug Abuse Patient Records regulations: The Federal rules restrict any use of the information to criminally investigate or prosecute any alcohol or drug abuse patient.[facility]In the event this information is protected by the Federal Confidentiality of Alcohol and Drug Abuse Patient Records regulations: The Federal rules restrict any use of the information to criminally investigate or prosecute any alcohol or drug abuse patient.[facility]In the event this information is protected by the Federal Confidentiality of Alcohol and Drug Abuse Patient Records regulations: The Federal rules restrict any use of the information to criminally investigate or prosecute any alcohol or drug abuse patient.[facility]In the event this information is protected by the Federal Confidentiality of Alcohol and Drug Abuse Patient Records regulations: The Federal rules restrict any use of the information to criminally investigate or prosecute any alcohol or drug abuse patient.[facility]In the event this information is protected by the Federal Confidentiality of Alcohol and Drug Abuse Patient Records regulations: The Federal rules restrict any use of the information to criminally investigate or prosecute any alcohol or drug abuse patient.[facility]In the event this information is protected by the Federal Confidentiality of Alcohol and Drug Abuse Patient Records regulations: The Federal rules restrict any use of the information to criminally investigate or prosecute any alcohol or drug abuse patient.[facility]In the event this information is protected by the Federal Confidentiality of Alcohol and Drug Abuse Patient Records regulations: The Federal rules restrict any use of the information to criminally investigate or prosecute any alcohol or drug abuse patient.[facility]In the event this information is protected by the Federal Confidentiality of Alcohol and Drug Abuse Patient Records regulations: The Federal rules restrict any use of the information to criminally investigate or prosecute any alcohol or drug abuse patient.[facility]In the event this information is protected by the Federal Confidentiality of Alcohol and Drug Abuse Patient Records regulations: The Federal rules restrict any use of the information to criminally investigate or prosecute any alcohol or drug abuse patient.[facility]In the event this information is protected by the Federal Confidentiality of Alcohol and Drug Abuse Patient Records regulations: The Federal rules restrict any use of the information to criminally investigate or prosecute any alcohol or drug abuse patient.[facility]In the event this information is protected by the Federal Confidentiality of Alcohol and Drug Abuse Patient Records regulations: The Federal rules restrict any use of the information to criminally investigate or prosecute any alcohol or drug abuse patient.[facility] HospitalIn the event this information is protected by the Federal Confidentiality of Alcohol and Drug Abuse Patient Records regulations: The Federal rules restrict any use of the information to criminally investigate or prosecute any alcohol or drug abuse patient.[facility] HospitalIn the event this information is protected by the Federal Confidentiality of Alcohol and Drug Abuse Patient Records regulations: The Federal rules restrict any use of the information to criminally investigate or prosecute any alcohol or drug abuse patient.[facility] HospitalIn the event this information is protected by the Federal Confidentiality of Alcohol and Drug Abuse Patient Records regulations: The Federal rules restrict any use of the information to criminally investigate or prosecute any alcohol or drug abuse patient.[facility]In the event this information is protected by the Federal Confidentiality of Alcohol and Drug Abuse Patient Records regulations: The Federal rules restrict any use of the information to criminally investigate or prosecute any alcohol or drug abuse patient.[facility] HospitalIn the event this information is protected by the Federal Confidentiality of Alcohol and Drug Abuse Patient Records regulations: The Federal rules restrict any use of the information to criminally investigate or prosecute any alcohol or drug abuse patient.[facility] HospitalIn the event this information is protected by the Federal Confidentiality of Alcohol and Drug Abuse Patient Records regulations: The Federal rules restrict any use of the information to criminally investigate or prosecute any alcohol or drug abuse patient.[facility] HospitalIn the event this information is protected by the Federal Confidentiality of Alcohol and Drug Abuse Patient Records regulations: The Federal rules restrict any use of the information to criminally investigate or prosecute any alcohol or drug abuse patient.[facility] HospitalIn the event this information is protected by the Federal Confidentiality of Alcohol and Drug Abuse Patient Records regulations: The Federal rules restrict any use of the information to criminally investigate or prosecute any alcohol or drug abuse patient.[facility] HospitalIn the event this information is protected by the Federal Confidentiality of Alcohol and Drug Abuse Patient Records regulations: The Federal rules restrict any use of the information to criminally investigate or prosecute any alcohol or drug abuse patient.[facility] HospitalIn the event this information is protected by the Federal Confidentiality of Alcohol and Drug Abuse Patient Records regulations: The Federal rules restrict any use of the information to criminally investigate or prosecute any alcohol or drug abuse patient.[facility] HospitalIn the event this information is protected by the Federal Confidentiality of Alcohol and Drug Abuse Patient Records regulations: The Federal rules restrict any use of the information to criminally investigate or prosecute any alcohol or drug abuse patient.[facility] HospitalIn the event this information is protected by the Federal Confidentiality of Alcohol and Drug Abuse Patient Records regulations: The Federal rules restrict any use of the information to criminally investigate or prosecute any alcohol or drug abuse patient.[facility] HospitalIn the event this information is protected by the Federal Confidentiality of Alcohol and Drug Abuse Patient Records regulations: The Federal rules restrict any use of the information to criminally investigate or prosecute any alcohol or drug abuse patient.[facility] HospitalIn the event this information is protected by the Federal Confidentiality of Alcohol and Drug Abuse Patient Records regulations: The Federal rules restrict any use of the information to criminally investigate or prosecute any alcohol or drug abuse patient.[facility] HospitalIn the event this information is protected by the Federal Confidentiality of Alcohol and Drug Abuse Patient Records regulations: The Federal rules restrict any use of the information to criminally investigate or prosecute any alcohol or drug abuse patient.[facility] HospitalIn the event this information is protected by the Federal Confidentiality of Alcohol and Drug Abuse Patient Records regulations: The Federal rules restrict any use of the information to criminally investigate or prosecute any alcohol or drug abuse patient.[facility] HospitalIn the event this information is protected by the Federal Confidentiality of Alcohol and Drug Abuse Patient Records regulations: The Federal rules restrict any use of the information to criminally investigate or prosecute any alcohol or drug abuse patient.[facility] HospitalIn the event this information is protected by the Federal Confidentiality of Alcohol and Drug Abuse Patient Records regulations: The Federal rules restrict any use of the information to criminally investigate or prosecute any alcohol or drug abuse patient.[facility] HospitalIn the event this information is protected by the Federal Confidentiality of Alcohol and Drug Abuse Patient Records regulations: The Federal rules restrict any use of the information to criminally investigate or prosecute any alcohol or drug abuse patient.[facility] HospitalIn the event this information is protected by the Federal Confidentiality of Alcohol and Drug Abuse Patient Records regulations: The Federal rules restrict any use of the information to criminally investigate or prosecute any alcohol or drug abuse patient.[facility] HospitalIn the event this information is protected by the Federal Confidentiality of Alcohol and Drug Abuse Patient Records regulations: The Federal rules restrict any use of the information to criminally investigate or prosecute any alcohol or drug abuse patient.[facility] HospitalIn the event this information is protected by the Federal Confidentiality of Alcohol and Drug Abuse Patient Records regulations: The Federal rules restrict any use of the information to criminally investigate or prosecute any alcohol or drug abuse patient.[facility] HospitalIn the event this information is protected by the Federal Confidentiality of Alcohol and Drug Abuse Patient Records regulations: The Federal rules restrict any use of the information to criminally investigate or prosecute any alcohol or drug abuse patient.[facility] HospitalIn the event this information is protected by the Federal Confidentiality of Alcohol and Drug Abuse Patient Records regulations: The Federal rules restrict any use of the information to criminally investigate or prosecute any alcohol or drug abuse patient.[facility] HospitalIn the event this information is protected by the Federal Confidentiality of Alcohol and Drug Abuse Patient Records regulations: The Federal rules restrict any use of the information to criminally investigate or prosecute any alcohol or drug abuse patient.[facility] HospitalIn the event this information is protected by the Federal Confidentiality of Alcohol and Drug Abuse Patient Records regulations: The Federal rules restrict any use of the information to criminally investigate or prosecute any alcohol or drug abuse patient.[facility] HospitalIn the event this information is protected by the Federal Confidentiality of Alcohol and Drug Abuse Patient Records regulations: The Federal rules restrict any use of the information to criminally investigate or prosecute any alcohol or drug abuse patient.[facility] HospitalIn the event this information is protected by the Federal Confidentiality of Alcohol and Drug Abuse Patient Records regulations: The Federal rules restrict any use of the information to criminally investigate or prosecute any alcohol or drug abuse patient.[facility] HospitalIn the event this information is protected by the Federal Confidentiality of Alcohol and Drug Abuse Patient Records regulations: The Federal rules restrict any use of the information to criminally investigate or prosecute any alcohol or drug abuse patient.[facility] HospitalIn the event this information is protected by the Federal Confidentiality of Alcohol and Drug Abuse Patient Records regulations: The Federal rules restrict any use of the information to criminally investigate or prosecute any alcohol or drug abuse patient.[facility] HospitalIn the event this information is protected by the Federal Confidentiality of Alcohol and Drug Abuse Patient Records regulations: The Federal rules restrict any use of the information to criminally investigate or prosecute any alcohol or drug abuse patient.[facility] HospitalIn the event this information is protected by the Federal Confidentiality of Alcohol and Drug Abuse Patient Records regulations: The Federal rules restrict any use of the information to criminally investigate or prosecute any alcohol or drug abuse patient.[facility] HospitalIn the event this information is protected by the Federal Confidentiality of Alcohol and Drug Abuse Patient Records regulations: The Federal rules restrict any use of the information to criminally investigate or prosecute any alcohol or drug abuse patient.[facility] HospitalIn the event this information is protected by the Federal Confidentiality of Alcohol and Drug Abuse Patient Records regulations: The Federal rules restrict any use of the information to criminally investigate or prosecute any alcohol or drug abuse patient.[facility] HospitalIn the event this information is protected by the Federal Confidentiality of Alcohol and Drug Abuse Patient Records regulations: The Federal rules restrict any use of the information to criminally investigate or prosecute any alcohol or drug abuse patient.[facility] HospitalIn the event this information is protected by the Federal Confidentiality of Alcohol and Drug Abuse Patient Records regulations: The Federal rules restrict any use of the information to criminally investigate or prosecute any alcohol or drug abuse patient.[facility] HospitalIn the event this information is protected by the Federal Confidentiality of Alcohol and Drug Abuse Patient Records regulations: The Federal rules restrict any use of the information to criminally investigate or prosecute any alcohol or drug abuse patient.[facility] HospitalIn the event this information is protected by the Federal Confidentiality of Alcohol and Drug Abuse Patient Records regulations: The Federal rules restrict any use of the information to criminally investigate or prosecute any alcohol or drug abuse patient.[facility] HospitalIn the event this information is protected by the Federal Confidentiality of Alcohol and Drug Abuse Patient Records regulations: The Federal rules restrict any use of the information to criminally investigate or prosecute any alcohol or drug abuse patient.[facility] HospitalIn the event this information is protected by the Federal Confidentiality of Alcohol and Drug Abuse Patient Records regulations: The Federal rules restrict any use of the information to criminally investigate or prosecute any alcohol or drug abuse patient.[facility] HospitalIn the event this information is protected by the Federal Confidentiality of Alcohol and Drug Abuse Patient Records regulations: The Federal rules restrict any use of the information to criminally investigate or prosecute any alcohol or drug abuse patient.[facility] HospitalIn the event this information is protected by the Federal Confidentiality of Alcohol and Drug Abuse Patient Records regulations: The Federal rules restrict any use of the information to criminally investigate or prosecute any alcohol or drug abuse patient.[facility] HospitalIn the event this information is protected by the Federal Confidentiality of Alcohol and Drug Abuse Patient Records regulations: The Federal rules restrict any use of the information to criminally investigate or prosecute any alcohol or drug abuse patient.[facility] HospitalIn the event this information is protected by the Federal Confidentiality of Alcohol and Drug Abuse Patient Records regulations: The Federal rules restrict any use of the information to criminally investigate or prosecute any alcohol or drug abuse patient.[facility] HospitalIn the event this information is protected by the Federal Confidentiality of Alcohol and Drug Abuse Patient Records regulations: The Federal rules restrict any use of the information to criminally investigate or prosecute any alcohol or drug abuse patient.[facility] HospitalIn the event this information is protected by the Federal Confidentiality of Alcohol and Drug Abuse Patient Records regulations: The Federal rules restrict any use of the information to criminally investigate or prosecute any alcohol or drug abuse patient.[facility] HospitalIn the event this information is protected by the Federal Confidentiality of Alcohol and Drug Abuse Patient Records regulations: The Federal rules restrict any use of the information to criminally investigate or prosecute any alcohol or drug abuse patient.[facility] HospitalIn the event this information is protected by the Federal Confidentiality of Alcohol and Drug Abuse Patient Records regulations: The Federal rules restrict any use of the information to criminally investigate or prosecute any alcohol or drug abuse patient.[facility] HospitalIn the event this information is protected by the Federal Confidentiality of Alcohol and Drug Abuse Patient Records regulations: The Federal rules restrict any use of the information to criminally investigate or prosecute any alcohol or drug abuse patient.[facility] HospitalIn the event this information is protected by the Federal Confidentiality of Alcohol and Drug Abuse Patient Records regulations: The Federal rules restrict any use of the information to criminally investigate or prosecute any alcohol or drug abuse patient.[facility] HospitalIn the event this information is protected by the Federal Confidentiality of Alcohol and Drug Abuse Patient Records regulations: The Federal rules restrict any use of the information to criminally investigate or prosecute any alcohol or drug abuse patient.[facility] HospitalIn the event this information is protected by the Federal Confidentiality of Alcohol and Drug Abuse Patient Records regulations: The Federal rules restrict any use of the information to criminally investigate or prosecute any alcohol or drug abuse patient.[facility] HospitalIn the event this information is protected by the Federal Confidentiality of Alcohol and Drug Abuse Patient Records regulations: The Federal rules restrict any use of the information to criminally investigate or prosecute any alcohol or drug abuse patient.[facility] HospitalIn the event this information is protected by the Federal Confidentiality of Alcohol and Drug Abuse Patient Records regulations: The Federal rules restrict any use of the information to criminally investigate or prosecute any alcohol or drug abuse patient.[facility] HospitalIn the event this information is protected by the Federal Confidentiality of Alcohol and Drug Abuse Patient Records regulations: The Federal rules restrict any use of the information to criminally investigate or prosecute any alcohol or drug abuse patient.[facility] HospitalIn the event this information is protected by the Federal Confidentiality of Alcohol and Drug Abuse Patient Records regulations: The Federal rules restrict any use of the information to criminally investigate or prosecute any alcohol or drug abuse patient.[facility] HospitalIn the event this information is protected by the Federal Confidentiality of Alcohol and Drug Abuse Patient Records regulations: The Federal rules restrict any use of the information to criminally investigate or prosecute any alcohol or drug abuse patient.[facility] HospitalIn the event this information is protected by the Federal Confidentiality of Alcohol and Drug Abuse Patient Records regulations: The Federal rules restrict any use of the information to criminally investigate or prosecute any alcohol or drug abuse patient.[facility] HospitalIn the event this information is protected by the Federal Confidentiality of Alcohol and Drug Abuse Patient Records regulations: The Federal rules restrict any use of the information to criminally investigate or prosecute any alcohol or drug abuse patient.[facility] HospitalIn the event this information is protected by the Federal Confidentiality of Alcohol and Drug Abuse Patient Records regulations: The Federal rules restrict any use of the information to criminally investigate or prosecute any alcohol or drug abuse patient.[facility] Reason for Visit (unrecogniz ed section and content) Reason Onset Date Comments Refill Request 02/02/2022 Reason Comments Orders Testing supplies Reason Onset [...] Reason Comments Results Reason Comments Faxed to [facility] med/surg Reason Comments Patient Request Patient is going to the 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 Reason Comments Hospital F/U Reason Comments verbal [...] Prostate cancer (HCC) Procedures LEUPROLIDE ACETATE SUSPNSION Jonnathan Swift DO [address] [place] [address] [facility] [address] [place] [address] Referral ID Status Reason Start Date Expiration Date V isits Requested Visits Authorized [id number] Authorized 09/28/2023 11/06/2024 99 99 Reason Onset Date Comments Community Monitoring Outreach 01/18/2024 Reason Comments Established Patient Follow Up Reason Comments Established Patient Reason Comments Results Reason Comments Established Patient Follow-Up Specialty Diagnoses / Procedures Referred By Contac t Referred To Contact Diagnoses Prostate cancer (HCC) Kourtney Bhatia MD [address] [place] [address] [facility] [address] [place] [address] Referral ID Status Reason Start Date Expiration Date V isits Requested Visits Authorized [id number] Authorized 05/23/2024 08/21/2024 99 99 Reason Comments New Pain Reason Comments Education Of Patient/family Appointment Voicemail jean couch 08/22/2024 Appointment Reason Comments Established Patient Follow Up Results Reason Comments Established Patient Reason Comments Orders New lab orders for A pril appt Reason Comments Established Patient Liver Disease Reason Comments 08.07.25 Cure Open Right Inguinal Hernia Repair 2.5 hours los 2 Care Teams (unrecognized sec tion and content) Health Center Assistant Relationship Specialty Start Date End Date Manuel Beebe MD [address], [place] [id number] PCP - General Internal Medicine 12/31/13 Nivia, [place] S Process Planner Cardiology 07/09/20 Albino Copeland, senior telecommunications technicianElectronics Technology Instructor Internal Medicine 05/19/21 Health Center Assistant Relationship Specialty Start Date End Date Manuel Beebe MD [address] [place] [address] PCP - General Internal Medicine 12/31/13 Nivia, Cosme S Process Planner Cardiology 07/09/20 Albino Copeland, senior telecommunications technicianElectronics Technology Instructor Internal Medicine 05/19/21 Jana Lara, [facility] [address] [place] [address] Pharmacist Pharmacy 02/02/22 Health Center Assistant Relationship Specialty Start Date End Date Manuel Beebe MD [address] [place] [address] PCP - General Internal Medicine 12/31/13 Nivia, Cosme S Process Planner Cardiology 07/09/20 Albino Copeland, senior telecommunications technicianElectronics Technology Instructor Internal Medicine 05/19/21 Jana Lara, [facility] [address] [place] [address] Pharmacist Pharmacy 02/02/22 Health Center Assistant Relationship Specialty Start Date End Date Manuel Beebe MD [address] [place] [address] PCP - General Internal Medicine 12/31/13 Nivia, Cosme S Process Planner Cardiology 07/09/20 Albino Copeland, senior telecommunications technicianElectronics Technology Instructor Internal Medicine 05/19/21 Jana Lara, [facility] [address] [place] [address] Pharmacist Pharmacy 02/02/22 Health Center Assistant Relationship Specialty Start Date End Date No, Physician [facility] PCP - General 02/10/22 Health Center Assistant Relationship Specialty Start Date End Date Manuel Beebe MD [address] [place] [address] PCP - General Internal Medicine 12/31/13 Nivia, Cosme S Process Planner Cardiology 07/09/20 Albino Copeland, senior telecommunications technicianElectronics Technology Instructor Internal Medicine 05/19/21 [facility] [address] [place] [address] Pharmacist Pharmacy 02/02/22 Health Center Assistant Relationship Specialty Start Date End Date No, Physician [facility] PCP - General 02/10/22 Health Center Assistant Relationship Specialty Start Date End Date Manuel Beebe MD [address] [place] [address] PCP - General Internal Medicine 12/31/13 Nivia, [place] S Process Planner Cardiology 07/09/20 Lorrie Osorio, RN [address] [place] [address] Electronics Technology Instructor 05/08/2105/08 Dinorah Posada (Rn) [address] [place] [address] Electronics Technology Instructor Family Practice 05/08/2105/07 Albino Copeland, senior telecommunications technicianElectronics Technology Instructor Internal Medicine 05/19/21 [facility] [address] [place] [address] Pharmacist Pharmacy 02/02/22 Health Center Assistant Relationship Specialty Start Date End Date Manuel Beebe MD [address] [place] [address] PCP - General Internal Medicine 12/31/13 Nivia, Cosme S Process Planner Cardiology 07/09/20 Albino Copeland, senior telecommunications technicianElectronics Technology Instructor Internal Medicine 05/19/21 Jana Lara, [facility] [address] [place] [address] Pharmacist Pharmacy 02/02/22 Health Center Assistant Relationship Specialty Start Date End Date No, Physician [facility] PCP - General 02/10/22 Health Center Assistant Relationship Specialty Start Date End Date No, Physician [facility] PCP - General 02/10/22 Health Center Assistant Relationship Specialty Start Date End Date No, Physician [facility] PCP - General 02/10/22 Health Center Assistant Relationship Specialty Start Date End Date No, Physician [facility] PCP - General 02/10/22 Health Center Assistant Relationship Specialty Start Date End Date Manuel Beebe MD [address] [place] [address] PCP - General Internal Medicine 12/31/13 Nivia, [place] S Process Planner Cardiology 07/09/20 Albino Copeland, senior telecommunications technicianElectronics Technology Instructor Internal Medicine 05/19/21 Jana Lara, [facility] [address] [place] [address] Pharmacist Pharmacy 02/02/22 Health Center Assistant Relationship Specialty Start Date End Date Manuel Beebe MD [address] [place] [address] PCP - General Internal Medicine 12/31/13 Nivia, Cosme S Process Planner Cardiology 07/09/20 Albino Copeland, senior telecommunications technicianElectronics Technology Instructor Internal Medicine 05/19/21 Jana Lara, [facility] [address] [place] [address] Pharmacist Pharmacy 02/02/22 Health Center Assistant Relationship Specialty Start Date End Date Manuel Beebe MD [address] [place] [id number] PCP - General Internal Medicine 12/31/13 Nivia, Cosme S Process Planner Cardiology 07/09/20 Albino Copeland, senior telecommunications technicianElectronics Technology Instructor Internal Medicine 05/19/21 Jana Lara, [facility] [address] [place] [address] Pharmacist Pharmacy 02/02/22 Health Center Assistant Relationship Specialty Start Date End Date Manuel Beebe MD [address] [place] [id number] PCP - General Internal Medicine 05/05/22 Health Center Assistant Relationship Specialty Start Date End Date Manuel Beebe MD [address] [place] [address] PCP - General Internal Medicine 05/05/22 Health Center Assistant Relationship Specialty Start Date End Date Manuel Beebe MD [address] [place] [address] PCP - General Internal Medicine 05/05/22 Health Center Assistant Relationship Specialty Start Date End Date Manuel Beebe MD [address] [place] [address] [place] [address] PCP - General Internal Medicine 12/31/13 Nivia, Vancouver S Process Planner Cardiology 07/09/20 Albino Copeland, senior telecommunications technicianElectronics Technology Instructor Internal Medicine 05/19/21 Jana Lara, [facility] [address] [place] [address] Pharmacist Pharmacy 02/02/22 Health Center Assistant Relationship Specialty Start Date End Date Manuel Beebe MD [address] [place] [address] PCP - General Internal Medicine 12/31/13 Nivia, Vancouver S Process Planner Cardiology 07/09/20 Albino Copeland, senior telecommunications technicianElectronics Technology Instructor Internal Medicine 05/19/21 [facility] [address] [place] [address] Pharmacist Pharmacy 02/02/22 Health Center Assistant Relationship Specialty Start Date End Date Manuel Beebe MD [address] [place] [address] PCP - General Internal Medicine 12/31/13 Nivia, Cosme S Process Planner Cardiology 07/09/20 Albino Copeland, senior telecommunications technicianElectronics Technology Instructor Internal Medicine 05/19/21 MasonJeanne, [facility] [address] [place] [address] Pharmacist Pharmacy 02/02/22 Health Center Assistant Relationship Specialty Start Date End Date Manuel Beebe MD [address] [place] [address] PCP - General Internal Medicine 12/31/13 Nivia, Cosme S Process Planner Cardiology 07/09/20 Dinorah Posada, senior telecommunications technicianElectronics Technology Instructor Internal Medicine 05/19/21 Jana Lara, [facility] [address] [place] [address] Pharmacist Pharmacy 02/02/22 Health Center Assistant Relationship Specialty Start Date End Date Manuel Beebe MD [address] [place] [address] PCP - General Internal Medicine 12/31/13 Nivia, Vancouver S [address] [place] [address] Process Planner Cardiology 07/09/20 Dinorah Posada, senior telecommunications technicianElectronics Technology Instructor Internal Medicine 05/19/21 [facility] [address] [place] [address] Pharmacist Pharmacy 02/02/22 Health Center Assistant Relationship Specialty Start Date End Date Manuel Beebe MD [address] [place] [address] PCP - General Internal Medicine 12/31/13 Nivia, Cosme S [address] [place] [address] Process Planner Cardiology 07/09/20 Dinorah Posada, senior telecommunications technicianElectronics Technology Instructor Internal Medicine 05/19/21 [facility] [address] [place] [address] Pharmacist Pharmacy 02/02/22 Health Center Assistant Relationship Specialty Start Date End Date Manuel Beebe MD [address] [place] [address] PCP - General Internal Medicine 12/31/13 Nivia, Cosme S [address] [place] [address] Process Planner Cardiology 07/09/20 Dinorah Posada, senior telecommunications technicianElectronics Technology Instructor Internal Medicine 05/19/21 [facility] [address] [place] [address] Pharmacist Pharmacy 02/02/22 Team Status: Active Member Role Status Dates Dr. Manuel Beebe MD Family Provider Active Dr. Manuel Beebe MD Primary Care Provider Active Team Status: Inactive Member Role Status Dates Dr. Manuel Beebe MD Primary Care Provider, Referr ing Provider Active Dr. Dwayne Horton MD Attending Provider Active Team Status: Inactive Member Role Status Dates Dr. Manuel Beebe MD Primary Care Provider, Referr ing Provider Active Tahmina Vyas Active Dr. Cosme Gonzáles MD Attending Provider Active Team Status: Inactive Member Role Status Dates Dr. Manuel Beebe MD Primary Care Provider, Referr ing Provider Active Maye Rizzo PA, PA Attending Provider Active Team Status: Active Member Role Status Dates Dr. Manuel Beebe MD Primary Care Provider Active Dr. Jerry De Paz MD Attending Provider Active Team Status: Inactive Member Role Status Dates Dr. Manuel Beebe MD Primary Care Provider Active Dr. Dwayne Horton MD Attending Provider, Referring Provider Active Team Status: Inactive Member Role Status Dates Dr. Manuel Beebe MD Primary Care Provider Active PATRICIA Gramajo Attending Provider Active Health Center Assistant Relationship Specialty Start Date End Date Manuel Beebe MD [address] [place] [address] PCP - General Internal Medicine 12/31/13 Nivia, Vancouver S [address] [place] [address] Process Planner Cardiology 07/09/20 Dinorah Posada, senior telecommunications technicianElectronics Technology Instructor Internal Medicine 05/19/21 Jana Lara, [facility] [address] [place] [address] Pharmacist Pharmacy 02/02/22 Health Center Assistant Relationship Specialty Start Date End Date Manuel Beebe MD [address] [place] [address] PCP - General Internal Medicine 12/31/13 Nivia, Vancouver S [address] [place] [address] Process Planner Cardiology 07/09/20 Dinorah Posada, senior telecommunications technicianElectronics Technology Instructor Internal Medicine 05/19/21 [facility] [address] [place] [address] Pharmacist Pharmacy 02/02/22 Team Status: Inactive Member Role Status Dates Dr. Manuel Beebe MD Primary Care Provider, Referr ing Provider Active Dr. Adilson Sal DO Attending Provider Active Team Status: Active Member Role Status Dates Dr. Manuel Beebe MD Primary Care Provider Active Dr. Jerry De Paz MD Attending Provider Active Dr. Dwayne Horton MD Referring Provider Active Health Center Assistant Relationship Specialty Start Date End Date Manuel Beebe MD [address] [place] [address] PCP - General Internal Medicine 12/31/13 Nivia, Cosme S [address] [place] [address] Process Planner Cardiology 07/09/20 Dinorah Posada RN Electronics Technology Instructor Internal Medicine 05/19/21 [facility] [address] [place] [address] Pharmacist Pharmacy 02/02/22 Health Center Assistant Relationship Specialty Start Date End Date Manuel Beebe MD [address] [place] [address] PCP - General Internal Medicine 12/31/13 Nivia, Vancouver S [address] [place] [address] Process Planner Cardiology 07/09/20 Dinorah Posada senior telecommunications technicianElectronics Technology Instructor Internal Medicine 05/19/21 [facility] [address] [place] [address] Pharmacist Pharmacy 02/02/22 Health Center Assistant Relationship Specialty Start Date End Date Manuel Beebe MD [address] [place] [address] PCP - General Internal Medicine 12/31/13 Nivia, Cosme S [address] [place] [address] Process Planner Cardiology 07/09/20 Dinorah Posada, senior telecommunications technicianElectronics Technology Instructor Internal Medicine 05/19/21 [facility] [address] [place] [address] Pharmacist Pharmacy 02/02/22 Team Status: Inactive Member Role Status Dates Dr. Manuel Beebe MD Primary Care Provider, Referr ing Provider Active Tahmina Vyas Attending Provider Active Team Status: Active Member Role Status Dates Dr. Manuel Beebe MD Primary Care Provider Active Victorino Badillo MD Emergency Provider Active Dr. Michael Jacobs MD Admit Provider, At tending Provider, Other Provider Active Team Status: Active Member Role Status Dates Dr. Manuel Beebe MD Primary Care Provider Active Victorino Badillo MD Emergency Provider Active Dr. Michael Jacobs MD Admit Provider, Attending Provid er Active Health Center Assistant Relationship Specialty Start Date End Date Manuel Beebe MD [address] [place] [address] PCP - General Internal Medicine 12/31/13 Nivia, Cosme S [address] [place] [address] Process Planner Cardiology 07/09/20 Dinorah Posada, senior telecommunications technicianElectronics Technology Instructor Internal Medicine 05/19/21 [facility] [address] [place] [address] Pharmacist Pharmacy 02/02/22 Team Status: Active Member Role Status Dates Dr. Manuel Beebe MD Primary Care Provider Active Victorino Badillo MD Emergency Provider Active Dr. Michael Jacobs MD Admit Provider, Other Provider A ctive Dr. Fior Turner MD Attending Provider, Other Prov ider Active Team Status: Inactive Member Role Status Dates Dr. Manuel Beebe MD Primary Care Provider Active Victorino Badillo MD Emergency Provider Active Dr. Michael Jacobs MD Admit Provider, Other Provider A ctive Dr. Fior Turner MD Attending Provider Active Health Center Assistant Relationship Specialty Start Date End Date Manuel Beebe MD [address] [place] [address] PCP - General Internal Medicine 12/31/13 Nivia, Vancouver S [address] [place] [address] Process Planner Cardiology 07/09/20 Dinorah Posada, senior telecommunications technicianElectronics Technology Instructor Internal Medicine 05/19/21 [facility]enterPut[facility] [address] [place] [address] Pharmacist Pharmacy 02/02/22 Health Center Assistant Relationship Specialty Start Date End Date Manuel Beebe MD [address] [place] [address] PCP - General Internal Medicine 12/31/13 Nivia, Cosme S [address] [place] [address] Process Planner Cardiology 07/09/20 Dinorah Posada, senior telecommunications technicianElectronics Technology Instructor Internal Medicine 05/19/21 [facility] [address] [place] [address] Pharmacist Pharmacy 02/02/22 Health Center Assistant Relationship Specialty Start Date End Date Manuel Beebe MD [address] [place] [address] PCP - General Internal Medicine 12/31/13 Nivia, Vancouver S [address] [place] [address] Process Planner Cardiology 07/09/20 Dinorah Posada, senior telecommunications technicianElectronics Technology Instructor Internal Medicine 05/19/21 [facility] [address] [place] [address] Pharmacist Pharmacy 02/02/22 Team Status: Active Member Role Status Dates Dr. Manuel Beebe MD Primary Care Provider Active Dr. Jo-Ann Bliss DO Emergency Provider Active Dr. Norris Orellana MD Admit Provider, Attending Provi philip Active Health Center Assistant Relationship Specialty Start Date End Date Manuel Beebe MD [address] [place] [address] PCP - General Internal Medicine 12/31/13 Nivia, Vancouver S [address] [place] [address] Process Planner Cardiology 07/09/20 Dinorah Posada RN Electronics Technology Instructor Internal Medicine 05/19/21 [facility] [address] [place] [address] Pharmacist Pharmacy 02/02/22 Health Center Assistant Relationship Specialty Start Date End Date Manuel Beebe MD [address] [place] [address] PCP - General Internal Medicine 12/31/13 Nivia, Cosme S [address] [place] [address] Process Planner Cardiology 07/09/20 Dinorah Posada senior telecommunications technicianElectronics Technology Instructor Internal Medicine 05/19/21 [facility] [address] [place] [address] Pharmacist Pharmacy 02/02/22 Team Status: Active Member Role Status Dates Dr. Manuel Beebe MD Primary Care Provider Active Dr. Jo-Ann Bliss DO Emergency Provider Active Dr. Norris Orellana MD Admit Provider, A ttending Provider, Other Provider Active Team Status: Active Member Role Status Dates Dr. Manuel Beebe MD Primary Care Provider Active Dr. Jo-Ann Bliss DO Emergency Provider Active Dr. Norris Orellana MD Admit Provider, Other Provider Active Dr. Fior Turner MD Attending Provider, Other Prov ider Active Dr. Maximo Addison MD Other Provider Active Team Status: Inactive Member Role Status Dates Dr. Manuel Beebe MD Primary Care Provider Active Dr. Jo-Ann Bliss DO Emergency Provider Active Dr. Norris Orellana MD Admit Provider, Other Provider Active Dr. Fior Turner MD Attending Provider Active Dr. Maximo Addison MD Other Provider Active Team Status: Active Member Role Status Dates Dr. Manuel Beebe MD Primary Care Provider Active YULIET GleasonC Attending Provider Active Team Status: Active Member Role Status Dates Dr. Manuel Beebe MD Primary Care Provider Active Dr. Goldy Olivia DO Emergency Provider Active Dr. Fior Turner MD Admit Provider, Attending Prov ider Active Team Status: Active Member Role Status Dates Dr. Manuel Beebe MD Primary Care Provider Active Dr. Goldy Olivia DO Emergency Provider Active Dr. Fior Turner MD Admit Provider, Attending Provider, Other Provider Active Dr. Wallace Durham MD Other Provider Active Team Status: Active Member Role Status Dates Dr. Manuel Beebe MD Primary Care Provider Active Dr. Freddy Benitez MD Attending Provider Active Team Status: Active Member Role Status Dates Dr. Manuel Beebe MD Primary Care Provider Active Dr. Goldy Olivia DO Emergency Provider Active Dr. Fior Turner MD Admit Provider, Other Provider Active Dr. Maximo Addison MD Attending Provider, Other Provider Active Team Status: Inactive Member Role Status Dates Dr. Manuel Beebe MD Primary Care Provider Active Dr. Goldy Olivia DO Emergency Provider Active Dr. Fior Turner MD Admit Provider, Other Provider Active Dr. Maximo Addison MD Attending Provider Active Team Status: Active Member Role Status Dates Dr. Manuel Beebe MD Primary Care Provider Active Azael SERRANO MD Attending Provider Active Team Status: Inactive Member Role Status Dates Dr. Manuel Beebe MD Primary Care Provider Active Dr. Erik Saravia MD Attending Provider, Referr ing Provider Active Team Status: Inactive Member Role Status Dates Dr. Manuel Beebe MD Primary Care Provider Active Martha Ashby LCSW, LCSW-C Attending Provider Active Team Status: Inactive Member Role Status Dates Dr. Manuel Beebe MD Primary Care Provider Active Dr. Azael Jackson MD Attending Provider Active Team Status: Active Member Role Status Dates Dr. Manuel Beebe MD Primary Care Provider Active Dr. Juan Conte DO Emergency Provider Active Dr. Maximo Addison MD Attending Provider Active Team Status: Active Member Role Status Dates Dr. Manuel Beebe MD Primary Care Provider Active Dr. Elisa SERRANO MD Attending Provider Active Team Status: Inactive Member Role Status Dates Dr. Manuel Beebe MD Primary Care Provider Active Dr. uJan Conte DO Emergency Provider Active Team Status: Active Member Role Status Dates Dr. Manuel Beebe MD Primary Care Provider Active Dr. Juan Conte DO Emergency Provider Active Dr. Maximo Addison MD Admit Provider, Other Pro vider Active Dr. Quynh Araya DO Attending Provider, Other Provide r Active Team Status: Active Member Role Status Dates Dr. Manuel Beebe MD Primary Care Provider Active Dr. Juan Conte DO Emergency Provider Active Dr. Maximo Addison MD Admit Provider, Other Pro vider Active Dr. Norris Orellana MD Other Provider Active Dr. Quynh Araya DO Other Provider Active Chandana Jain MD Attending Provider, Other Provider Active Team Status: Active Member Role Status Dates Dr. Manuel Beebe MD Primary Care Provider Active Dr. Juan Inés , DO Emergency Provider Active Dr. Maximo Addison MD Admit Provider, Other Pro vider Active Dr. Norris Orellana MD Attending Provider, Other Provi philip Active Dr. Quynh Araya , DO Other Provider Active Chandana Jain MD Other Provider Active Team Status: Active Member Role Status Dates Dr. Manuel Beebe MD Primary Care Provider Active Dr. Elisa SERRANO MD Attending Provider, Referring Provider Active Team Status: Inactive Member Role Status Dates Dr. Manuel Beebe MD Primary Care Provider Active Dr. Juan Conte , DO Emergency Provider Active Dr. Maximo Addison MD Admit Provider, Other Pro vider Active Dr. Norris Orellana MD Attending Provider Active Dr. Quynh Araya , DO Other Provider Active Chandana Jain MD Other Provider Active Health Center Assistant Relationship Specialty Start Date End Date Manuel Beebe MD [address] [place] [address] PCP - General Internal Medicine 12/31/13 Cosme Gonzáles [address] [place], [place] [address] Process Planner Cardiology 07/09/20 Dinorah Posada, senior telecommunications technicianElectronics Technology Instructor Internal Medicine 05/19/21 [facility] [address] [place], [place] [address]681 Pharmacist Pharmacy 02/02/22 Team Status: Active Member Role Status Dates Dr. Manuel Beebe MD Primary Care Provider Active Dr. Juan Conte , DO Emergency Provider Active Dr. Maximo Addison MD Admit Provider, Other Pro vider Active Dr. Norris Orellana MD Referring Provider, Other Provi philip Active Dr. Quynh Araya , DO Other Provider Active Chandana Jain MD Attending Provider, Other Provider Active Team Status: Inactive Member Role Status Dates Dr. Manuel Beebe MD Primary Care Provider Active Dr. Elisa SERRANO MD Attending Provider Active Health Center Assistant Relationship Specialty Start Date End Date Manuel Beebe MD [address] [place] [address] PCP - General Internal Medicine 12/31/13 Cosme Gonzáles [address] [place] [address] Process Planner Cardiology 07/09/20 Dinorah Posada, senior telecommunications technicianElectronics Technology Instructor Internal Medicine 05/19/21 [facility] [address] [place] [address] Pharmacist Pharmacy 02/02/22 Team Status: Inactive Member Role Status Dates Dr. Manuel Beebe MD Primary Care Provider Active Dr. Adilson Sal DO Attending Provider Active Team Status: Inactive Member Role Status Dates Dr. Manuel Beebe MD Primary Care Provider Active Dr. Elisa SERRANO MD Attending Provider, Referring Provider Active Health Center Assistant Relationship Specialty Start Date End Date Manuel Beebe MD [address] [place] [address] PCP - General Internal Medicine 12/31/13 Cosme Gonzáles MD [address] [place] [address] Process Planner Cardiology 07/09/20 Dinorah Posada, senior telecommunications technicianElectronics Technology Instructor Internal Medicine 05/19/21 [facility] [address] [place], [place] [address] Pharmacist Pharmacy 02/02/22 Team Status: Inactive Member Role Status Dates Dr. Manuel Beebe MD Primary Care Provider Active Dr. Elisa Narvaez MD Attending Provider Active Health Center Assistant Relationship Specialty Start Date End Date Manuel Beebe MD [address] [place] [address] PCP - General Internal Medicine 12/31/13 Cosme Gonzáles MD [address] [place] [address] Process Planner Cardiology 07/09/20 Dinorah Posada, senior telecommunications technicianElectronics Technology Instructor Internal Medicine 05/19/21 [facility] [address] [place] [address] Pharmacist Pharmacy 02/02/22 Health Center Assistant Relationship Specialty Start Date End Date Manuel Beebe MD [address] [place] [address] PCP - General Internal Medicine 12/31/13 Cosme Gonzáles MD [address] [place] [address] Process Planner Cardiology 07/09/20 Dinorah Posada RN Electronics Technology Instructor Internal Medicine 05/19/21 [facility] Pharmacist Pharmacy 02/02/22 Health Center Assistant Relationship Specialty Start Date End Date Manuel Beebe MD [address] [place] [address] PCP - General Internal Medicine 12/31/13 Cosme Gonzáles MD [address] [place] [address] Process Planner Cardiology 07/09/20 Dinorah Posada senior telecommunications technicianElectronics Technology Instructor Internal Medicine 05/19/21 [facility] Pharmacist Pharmacy 02/02/22 Health Center Assistant Relationship Specialty Start Date End Date Manuel Beebe MD [address] [facility], [place] [address] PCP - General Internal Medicine 12/31/13 Cosme Gonzáles MD [address] [place] [address] Process Planner Cardiology 07/09/20 Dinorah Posada, senior telecommunications technicianElectronics Technology Instructor Internal Medicine 05/19/21 Health Center Assistant Relationship Specialty Start Date End Date Manuel Beebe MD [address] [place], [place] [address] PCP - General Internal Medicine 12/31/13 Cosme Gonzáles MD [address] [place] [address] Process Planner Cardiology 07/09/20 Dinorah Posada, senior telecommunications technicianElectronics Technology Instructor Internal Medicine 05/19/21 Team Status: Inactive Member Role Status Dates Dr. Manuel Beebe MD Primary Care Provider, Referr ing Provider Active Dr. Cosme Gonzáles MD Attending Provider Active Team Status: Inactive Member Role Status Dates Dr. Manuel Beebe MD Primary Care Provider Active Dr. Cosme Gonzáles MD Attending Provider Active Health Center Assistant Relationship Specialty Start Date End Date Manuel Beebe MD [address] [facility], [place] [address] PCP - General Internal Medicine 12/31/13 Cosme Gonzáles MD [address] [facility], [place] [address] [phone] Planner Cardiology 07/09/20 Dinorah Posada, senior telecommunications technicianElectronics Technology Instructor Internal Medicine 05/19/21 Health Center Assistant Relationship Specialty Start Date End Date Manuel Beebe MD [address] [place] [address] PCP - General Internal Medicine 12/31/13 Cosme Gonzáles MD [address] [place] [address] Process Planner Cardiology 07/09/20 Dinorah Posada, senior telecommunications technicianElectronics Technology Instructor Internal Medicine 05/19/21 Health Center Assistant Relationship Specialty Start Date End Date Manuel Beebe MD [address] [place] [address] PCP - General Internal Medicine 12/31/13 Cosme Gonzáles MD [address] [place] [address] Process Planner Cardiology 07/09/20 Dinorah Posada, senior telecommunications technicianElectronics Technology Instructor Internal Medicine 05/19/21 Health Center Assistant Relationship Specialty Start Date End Date Manuel Beebe MD [address] [place] [address] PCP - General Internal Medicine 12/31/13 Comse Gonzáles MD [address] [place] [address] Process Planner Cardiology 07/09/20 Dinorah Posada, senior telecommunications technicianElectronics Technology Instructor Internal Medicine 05/19/21 Health Center Assistant Relationship Specialty Start Date End Date Manuel Beebe MD [address] [place] [address] PCP - General Internal Medicine 12/31/13 Cosme Gonzáles MD [address] [place] [address] Process Planner Cardiology 07/09/20 Dinorah Posada senior telecommunications technicianElectronics Technology Instructor Internal Medicine 05/19/21 Health Center Assistant Relationship Specialty Start Date End Date Manuel Beebe MD [address] [place] [address] PCP - General Internal Medicine 12/31/13 Cosme Gonzáles MD [address] [place] [address] Process Planner Cardiology 07/09/20 Health Center Assistant Relationship Specialty Start Date End Date Elisa Narvaez MD [address] [place] [address] PCP - General Gerontology 03/14/24 Cosme Gonzáles MD Process Planner Cardiology 07/09/20 Health Center Assistant Relationship Specialty Start Date End Date Elisa Narvaez MD [address] [place] [address] PCP - General Gerontology 03/14/24 Cosme Gonzáles MD Process Planner Cardiology 07/09/20 Health Center Assistant Relationship Specialty Start Date End Date Elisa Narvaez MD [address] [place] [address] PCP - General Gerontology 03/14/24 Cosme Gonzáles MD Process Planner Cardiology 07/09/20 Health Center Assistant Relationship Specialty Start Date End Date Elisa Narvaez MD [address] [place] [address] PCP - General Gerontology 03/14/24 Cosme Gonzáles MD Process Planner Cardiology 07/09/20 Health Center Assistant Relationship Specialty Start Date End Date Elisa Narvaez MD [address] [place] [address] PCP - General Gerontology 03/14/24 Cosme Gonzáles MD Process Planner Cardiology 07/09/20 Health Center Assistant Relationship Specialty Start Date End Date Elisa Narvaez MD [address] [place] [address] PCP - General Gerontology 03/14/24 Cosme Gonzáles MD Process Planner Cardiology 07/09/20 Health Center Assistant Relationship Specialty Start Date End Date Elisa Narvaez MD [address] [place] [address] PCP - General Gerontology 03/14/24 Cosme Gonzáles MD Process Planner Cardiology 07/09/20 Health Center Assistant Relationship Specialty Start Date End Date Elisa Narvaez MD [address] [place] [address] PCP - General Gerontology 03/14/24 Cosme Gonzáles MD [employer] [facility] Cardiology 07/09/20 Health Center Assistant Relationship Specialty Start Date End Date Elisa Narvaez MD [address] [place] [id number] PCP - General Gerontology 03/14/24 Cosme Gonzáles MD [employer] Cardiology 07/09/20 Health Center Assistant Relationship Specialty Start Date End Date Elisa Narvaez MD [address] [place] [id number] PCP - General Gerontology 03/14/24 Cosme Gonzáles MD Process [employer] Cardiology 07/09/20 Health Center Assistant Relationship Specialty Start Date End Date Elisa Narvaez MD [address] [place] [id number] PCP - General Gerontology 03/14/24 Cosme Gonzáles MD Process [employer] Cardiology 07/09/20 Health Center Assistant Relationship Specialty Start Date End Date Elisa Narvaez MD [address] [place] [address] PCP - General Gerontology 03/14/24 Cosme Gonzáles MD Process [employer] Cardiology 07/09/20 Health Center Assistant Relationship Specialty Start Date End Date Elisa Narvaez MD [address] [place] [address] PCP - General Gerontology 03/14/24 Cosme Gonzáles MD Process [employer] Cardiology 07/09/20 Health Center Assistant Relationship Specialty Start Date End Date Elisa Narvaez MD [address] [place] [address] PCP - General Gerontology 03/14/24 Cosme Gonzáles MD Process [employer] Cardiology 07/09/20 Health Center Assistant Relationship Specialty Start Date End Date Elisa Narvaez MD [address] [place] [address] PCP - General Gerontology 03/14/24 Cosme Gonzáles MD Process [employer] Cardiology 07/09/20 Health Center Assistant Relationship Specialty Start Date End Date Elisa Narvaez MD [address] [place] [address] PCP - General Gerontology 03/14/24 Cosme Gonzáles MD Process [employer] Cardiology 07/09/20 Health Center Assistant Relationship Specialty Start Date End Date Elisa Narvaez MD [address] [place] [address] PCP - General Gerontology 03/14/24 Cosme Gonzáles MD Process [employer] Cardiology 07/09/20 Health Center Assistant Relationship Specialty Start Date End Date Elisa Narvaez MD [address] [place] [address] PCP - General Gerontology 03/14/24 Cosme Gonzáles MD Process [employer] Cardiology 07/09/20 Team Status: Active Member Role Status Dates Dr. Manuel Beebe MD Primary Care Provider Active Team Status: Inactive Member Role Status Dates Dr. Manuel Beebe MD Primary Care Provider Active Start: October 22, 2024 End: October 22, 2024 Dr. Elisa SERRANO MD Attending Provider Active Start: October 22, 2024 End: October 22, 2024 Team Status: Inactive Member Role Status Dates Dr. Manuel Beebe MD Primary Care Provider Active Start: October 26, 2024 End: October 26, 2024 Dr. Elisa SERRANO MD Attending Provider Active Start: October 26, 2024 End: October 26, 2024 Dr. Elisa SERRANO MD Referring Provider Active Start: October 26, 2024 End: October 26, 2024 Team Status: Inactive Member Role Status Dates Dr. Manuel Beebe MD Primary Care Provider Active Start: November 23, 2024 End: November 23, 2024 Dr. Elisa SERRANO MD Attending Provider Active Start: November 23, 2024 End: November 23, 2024 Team Status: Inactive Member Role Status Dates Dr. Manuel Beebe MD Primary Care Provider Active Start: December 12, 2024 End: December 12, 2024 Dr. Cosme Gonzáles MD Attending Provider Active S tart: December 12, 2024 End: December 12, 2024 Team Status: Inactive Member Role Status Dates Dr. Manuel Beebe MD Primary Care Provider Active Start: December 12, 2024 End: December 12, 2024 Dr. Manuel Beebe MD Referring Provider Active Start: December 12, 2024 End: December 12, 2024 Maye Rizzo PA, PA Attending Provider Active Start: December 12, 2024 End: December 12, 2024 Team Status: Active Member Role Status Dates Dr. Manuel Beebe MD Primary Care Provider Active Start: December 21, 2024 Dr. Elisa SERRANO MD Attending Provider Active Start: December 21, 2024 Team Status: Inactive Member Role Status Dates Dr. Manuel Beebe MD Primary Care Provider Active Start: January 18, 2025 End: January 18, 2025 Dr. Elisa SERRANO MD Attending Provider Active Start: January 18, 2025 End: January 18, 2025 Team Status: Inactive Member Role Status Dates Dr. Manuel Beebe MD Primary Care Provider Active Start: January 24, 2025 End: January 24, 2025 Dr. Manuel Beebe MD Referring Provider Active Start: January 24, 2025 End: January 24, 2025 Dr. Dwayne Horton MD Attending Provider Active Start: January 24, 2025 End: January 24, 2025 Health Center Assistant Relationship Specialty Start Date End Date Elisa Narvaez MD [address] [place] [address] PCP - General Gerontology 03/14/24 Cosme Gonzáles MD Process Planner Cardiology 07/09/20 Health Center Assistant Relationship Specialty Start Date End Date Elisa Narvaez MD [address] [place] [address] PCP - General Gerontology 03/14/24 Cosme Gonzáles MD Process Planner Cardiology 07/09/20 Health Center Assistant Relationship Specialty Start Date End Date Elisa Narvaez MD [address] [place] [address] PCP - General Gerontology 03/14/24 Cosme Gonzáles MD Process Planner Cardiology 07/09/20 Health Center Assistant Relationship Specialty Start Date End Date Elisa Narvaez MD [address] [place] [id number] PCP - General Gerontology 03/14/24 Cosme Gonzáles MD Process Planner Cardiology 07/09/20 Health Center Assistant Relationship Specialty Start Date End Date Elisa Narvaez MD [address] [place] [address] PCP - General Gerontology 03/14/24 Cosme Gonzáles MD Process Planner Cardiology 07/09/20 Health Center Assistant Relationship Specialty Start Date End Date Elisa Narvaez MD [address] [place] [address] PCP - General Gerontology 03/14/24 Cosme Gonzáles MD Process Pl[employer] Cardiology 07/09/20 Team Status: Active Member Role Status Dates Dr. Manuel Beebe MD Primary Care Provider Active Start: February 15, 2025 Dr. Elisa SERRANO MD Attending Provider Active Start: February 15, 2025 Team Status: Active Member Role Status Dates Dr. Manuel Beebe MD Primary Care Provider Active Start: March 11, 2025 Dr. Elisa SERRANO MD Attending Provider Active Start: March 11, 2025 Team Status: Inactive Member Role Status Dates Dr. Manuel Beebe MD Primary Care Provider Active Start: March 13, 2025 End: March 13, 2025 Dr. Cosme Gonzáles MD Attending Provider Active S tart: March 13, 2025 End: March 13, 2025 Team Status: Active Member Role Status Dates Dr. Manuel Beebe MD Primary Care Provider Active Start: March 15, 2025 Dr. Elisa SERRANO MD Attending Provider Active Start: March 15, 2025 Team Status: Inactive Member Role Status Dates Dr. Manuel Beebe MD Primary Care Provider Active Start: March 15, 2025 End: March 15, 2025 Dr. Elisa SERRANO MD Attending Provider Active Start: March 15, 2025 End: March 15, 2025 Team Status: Inactive Member Role Status Dates Dr. Manuel Beebe MD Primary Care Provider Active Start: March 11, 2025 End: March 11, 2025 Dr. Elisa SERRANO MD Attending Provider Active Start: March 11, 2025 End: March 11, 2025 Health Center Assistant Relationship Specialty Start Date End Date Elisa Narvaez MD [address] [place] [address] PCP - General Gerontology 03/14/24 Cosme Gonzáles MD Process Planner Cardiology 07/09/20 Health Center Assistant Relationship Specialty Start Date End Date Elisa Narvaez MD [address] [place] [address] PCP - General Gerontology 03/14/24 Cosme Gonzáles MD Process Planner Cardiology 07/09/20 Goals (unrecognized section and content) Goals may be documented in a n alternate sectionGoals may be documented in an alternate sectionGoals may be documented in an alternate sectionGoals may be documented in an alternate sectionGoals may be documented in an alternate sectionGoals may be documented in an alternate sectionGoals may be documented in an alternate sectionGoals may be documented in an alternate sectionGoals may be documented in an alternate sectionGoals may be documented in an alternate sectionGoals may be documented in an alternate sectionGoals may be documented in an alternate sectionGoals may be documented in an alternate sectionGoals may be documented in an alternate sectionGoals may be documented in an alternate sectionGoals may be documented in an alternate sectionGoals may be documented in an alternate sectionGoals may be documented in an alternate section (unrecognized sect ion and content) No Status Records FoundNo Status Records FoundNo Status Records FoundNo Status Records Found INFORMATION SOURCE (unrecogn ized section and content) DATE [facility] DATE [facility]ATED AUTHOR AUTHOR'S ORGANIZ ATION 05/27/2024 [facility] DATE CREATED AUTHOR AUTHOR'S ORGANIZ ATION 05/18/2025 [facility] DATE CREATED AUTHOR AUTHOR'S ORGANIZ ATION 05/20/2025 [facility] Inactive Administered Medications - up to 3 most recent administrations Administered Medications (un recognized section and content) Medication Order MAR Action Action Date Dose Rate Site leuprolide 22.5 mg injection (LUPRON DEPOT) 22.5 mg, INTRAMUSCULAR, ONCE, 1 dose, On Tue12/21/23 at 1500, Hazardous Chemotherapy Drug: Use appropriate PPE. Given 12/21/2023 2:54 PM EST 22.5 mg Buttocks, Left FOR RECORDS PERTAINING TO PATIENTS WHO ARE [...] BE BASED ON THE PRIMARY CLINICAL RECORDS. [employer] [facility] provides no warranty or guarantee of the accuracy or completeness of information in this document.
[2025-05-21 09:11] LABS: Pro- Brain NATRIURETIC PEPTIDE 1734 pg/mL (<=900)
== END ==
LOC: OLS.SW 05:00
PROVIDERS: PCP Internal Medicine; Visit Provider Internal Medicine
DX: E11.22 Type 2 diabetes mellitus with diabetic chronic kidney disease (principal); N18.9 Chronic kidney disease, unspecified
CPT/HCPCS: 36415; 83880

== ENCOUNTER → 2025-05-30 | Outpatient (REF) | payer MEDICARE, MEDICAID, SELFPAY ==
[2025-05-30 08:41] LABS: Anion Gap 11 (5-15); BUN 25 mg/dL (4-19); BUN/Creat Ratio 24.2 RATIO (10-20); Calcium,Total 8.8 mg/dL (7.6-11.0); Carbon Dioxide 18.5 mmol/L (21.0-32.0); Chloride 111 mmol/L (98-108); Glucose 138 mg/dL (70-99); Magnesium 2.3 mg/dL (1.5-2.2); Potassium 4.0 mmol/L (3.3-5.1)
== END ==
LOC: OLS.SW 05:00
PROVIDERS: PCP Internal Medicine; Visit Provider Internal Medicine
DX: E11.9 Type 2 diabetes mellitus without complications (principal)
CPT/HCPCS: 36415; 80048; 83735

== ENCOUNTER → 2025-06-11 | Outpatient (REF) | payer MEDICARE, MEDICAID, SELFPAY ==
[2025-06-11 09:54] LABS: Ammonia 14.3 umol/L (16-60)
== END ==
LOC: OLS.SW 04:00
PROVIDERS: PCP Internal Medicine; Referring Provider Internal Medicine; Visit Provider Internal Medicine
DX: G93.41 Metabolic encephalopathy (principal); Z79.899 Other long term (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
CPT/HCPCS: 36415; 82140

== ENCOUNTER → 2025-07-09 05:00 | Outpatient (REF) | payer MEDICARE, MEDICAID, SELFPAY ==
[2025-07-09 08:52] LABS: Ammonia 22.7 umol/L (16-60)
== END ==
LOC: OLS.SW 05:00
PROVIDERS: PCP Internal Medicine; Visit Provider Internal Medicine
DX: G93.41 Metabolic encephalopathy (principal)
CPT/HCPCS: 36415; 82140

== ENCOUNTER → 2025-07-16 | Outpatient (REF) | payer MEDICARE, MEDICAID, SELFPAY ==
[2025-07-16 09:35] LABS: Hematocrit 35.4 % (40-54); Hemoglobin 11.5 g/dL (13.0-16.5); Immature Granulocytes Count 0.050 X10^3/uL (0.0-0.0); Mean Corp Hgb Conc 32.5 g/dL (32-36); Mean Corpuscular Volume 100.6 fL (80-94); Mean Platelet Vol. 11.7 fl (6.2-12.0); NRBC Flagged by Analyzer 0 % (0-5); POSITIVE DIFFERENTIAL YES; Platelet Count 140 K/mm3 (150-450); RBC Distribution Width CV 14.5 % (11.6-14.6); RBC Distribution Width SD 53.1 fl (35.1-43.9); Red Blood Count 3.52 M/mm3 (4.6-6.2); White Blood Count 5.9 K/mm3 (4.4-11.0)
[2025-07-16 10:06] LABS: Anion Gap 10 (5-15); BUN 20 mg/dL (4-19); BUN/Creat Ratio 20.3 RATIO (10-20); Calcium,Total 9.0 mg/dL (7.6-11.0); Carbon Dioxide 19.4 mmol/L (21.0-32.0); Chloride 111 mmol/L (98-108); Glucose 128 mg/dL (70-99); Potassium 4.2 mmol/L (3.3-5.1)
== END ==
LOC: OLS.SW 05:00
PROVIDERS: PCP Internal Medicine; Visit Provider Internal Medicine
DX: E11.9 Type 2 diabetes mellitus without complications (principal)
CPT/HCPCS: 36415; 80048; 85025

== ENCOUNTER → 2025-08-06 | Outpatient (REF) | payer MEDICARE, MEDICAID, SELFPAY ==
[2025-08-06 08:11] LABS: Ammonia 14.8 umol/L (16-60)
== END ==
LOC: OLS.SW 05:00
PROVIDERS: PCP Internal Medicine; Visit Provider Internal Medicine
DX: G93.41 Metabolic encephalopathy (principal)
CPT/HCPCS: 36415; 82140

== ENCOUNTER → 2025-08-13 05:00 | Outpatient (REF) | payer MEDICARE, MEDICAID, SELFPAY ==
[2025-08-13 09:59] LABS: Hematocrit 33.9 % (40-54); Hemoglobin 10.7 g/dL (13.0-16.5); Immature Granulocytes Count 0.100 X10^3/uL (0.0-0.0); Mean Corp Hgb Conc 31.6 g/dL (32-36); Mean Corpuscular Volume 99.7 fL (80-94); Mean Platelet Vol. 11.5 fl (6.2-12.0); NRBC Flagged by Analyzer 0 % (0-5); Platelet Count 160 K/mm3 (150-450); RBC Distribution Width CV 14.1 % (11.6-14.6); RBC Distribution Width SD 51.6 fl (35.1-43.9); Red Blood Count 3.40 M/mm3 (4.6-6.2); White Blood Count 6.6 K/mm3 (4.4-11.0)
[2025-08-13 10:14] LABS: AST(SGOT) 18 U/L (<=37); Alanine Aminotransfer ALT/SGPT 13 U/L (<=46); Albumin, Serum 3.6 g/dL (3.4-4.8); Alkaline Phosphatase 62 U/L (40-129); Anion Gap 10 (5-15); BUN 21 mg/dL (4-19); BUN/Creat Ratio 20.9 RATIO (10-20); Calcium,Total 8.6 mg/dL (7.6-11.0); Carbon Dioxide 17.2 mmol/L (21.0-32.0); Chloride 106 mmol/L (98-108); Globulin 2.9 g/dL (2.2-4.2); Glucose 121 mg/dL (70-99); Magnesium 2.1 mg/dL (1.5-2.2); Potassium 4.2 mmol/L (3.3-5.1)
== END ==
LOC: OLS.SW 05:00
PROVIDERS: PCP Internal Medicine; Visit Provider Internal Medicine
DX: R53.83 Other fatigue (principal); E03.9 Hypothyroidism, unspecified; G20.C Parkinsonism, unspecified
CPT/HCPCS: 36415; 80053; 83735; 85025

== ENCOUNTER → 2025-10-08 05:00 | Outpatient (REF) | payer MEDICARE, MEDICAID, SELFPAY ==
--- OUTSIDE RECORDS SUMMARY | 2025-10-08 04:07 | XMS RPT_ITS | CCD ---
Author Organization [facility] Care Team Providers Care Section Cutter Name Role Phone Manuel Beebe MD Primary Care Provider Cosme Gonzáles Unavailable Dinorah WINSTON, Albino Fuentes Unavailable Unavailabl e [place] [facility], Keti Unavailable Unavailable Primary Care Provider Dr. Manuel Granger Primary Care Provider Dr. Seferino Villalobos Attending Provider Dr. Erik Saravia Referring Provider Dr. Manuel Beebe Referring Provider Dr. Adilson Sal Attending Provider Dr. Cosme Gonzáles Attending Provider Dr. Cosme Gonzáles Referring Provider Dr. Adilson Sal Referring Provider Tahmina Vyas Attending Provider Unavailable No, Physician Primary Care Provider Unavailtu Osorio RN, Lorrie Unavailable [phone] Dinorah Posada (Rn) Unavailable Dr. Manuel Beebe [...] Care Provider Cosme Gonzáles Unavailable Dinorah RN, Posada M Unavailable Unavailabl hiram Lara [facility], Jana Unavailable MUNIRA DICKERSON Referring Unavailable MUNIRA DICKERSON Attending Unavailable MANUEL BEEBE Primary Care Unavailable MUNIRA DICKERSON Referring Unavailable MUNIRA DICKERSON Attending Unavailable MANUEL BEEBE Primary Care Unavailable NO, PHYSICIAN Primary Care Unavailable SRIDHAR PRADO Consulting Unavailable SYSTEM, PROVIDER NOT IN Referring Unavaila AUSTIN Hernandez Admitting Unavailable NICOLE VIERA Attending Unavailabl e MUNIRA DICKERSON Attending Unavailable NO, PHYSICIAN Primary Care Unavailable VIAMUNIRA Manjarrez Referring Unavailable VIAMUNIRA Manjarrez Attending Unavailable NO, PHYSICIAN Primary Care Unavailable VIAU, MUNIRA ELDER Referring Unavailable MANUEL BEEBE Primary Care Unavailable VIAU, MUNIRA ELDER Referring Unavailable VIAU, MUNIRA ELDER Attending Unavailable TUMUAMBROSIO Referring Unavailab le VIAU, MUNIRA ELDER Attending Unavailable MANUEL BEEBE Primary Care Unavailable Dr. Manuel Beebe Primary Care Provider Dr. Adilson Sal Attending Provider Cosme Gonzáles S Unavailable [facility], Keti Unavailable Dr. Manuel Beebe Primary Care Provider Dr. Manuel Beebe Referring Provider Dr. Adilson Sal Attending Provider Albino WINSTON, Dinorah Fuentes Unavailable Unavailabl e Manuel Beebe MD Primary Care Provider Cosme Gonzáles S Unavailable Albino WINSTON, Dinorah Fuentes Unavailable Unavailabl e [facility], Keti Unavailable Dr. Manuel Beebe Primary Care Provider Dr. Manuel Beebe Referring Provider Dr. Adilson Sal Attending Provider Dr. Dwayne Horton Attending Provider So FORREST, [place] Maye Fuentes Attending Provider Dr. Cosme Gonzáles Attending Provider Dr. Manuel Beebe Primary Care Provider Dr. Manuel Beebe Referring Provider Dr. Jerry De Paz Attending Provider Dr. Manuel Beebe Primary Care Provider Dr. Manuel Beebe Referring Provider Dr. Cosme Gonzáles Attending Provider Dr. Dwayne Horton Referring Provider Dr. Dwayne Horton Attending Provider Dr. Adilson Sal Attending Provider Dr. Manuel Beebe Primary Care Provider Parker, Dr. Manuel Chávez Referring Provider Dr. Dwayne Horton Attending Provider Dr. Adilson Sal Attending Provider Dr. Cosme Gonzáles Attending Provider [phone] Tahmina Vyas Attending Provider Unavailable MD Victorino Badillo Emergency Provider Dr. Leonie Jacobs Admit Provider Unavailable Arlene, Dr. Rodriguez Attending Provider Unavailable Arlene, Dr. Rodriguez Other Provider Unavailable Yue, Dr. Fior Bravo Attending Provider Yue, Dr. Fior Bravo Other Provider Dr. Manuel Beebe Primary Care Provider Parker, Dr. Manuel Chávez Referring Provider Dr. Jo-Ann Bliss Emergency Provider Dr. Norris Orellana Admit Provider Dr. Norris Orellana Attending Provider Dr. Norris Orellana Other Provider Dr. Maximo Addison Other Provider Dr. Goldy Olivia Emergency Provider Yue, Dr. Fior Bravo Admit Provider Dr. Wallace Durham Other Provider Dr. Freddy Benitez Attending Provider Dr. Maximo Addison Attending Provider Dr. Manuel Beebe Primary Care Provider Dr. Manuel Beebe Referring Provider Dr. Cosme Gonzáles Attending Provider Tahmina Vyas Attending Provider Unavailable MD Victorino Badillo Emergency Provider Dr. Leonie Jacobs Admit Provider Unavailable Arlene, Dr. Rodriguez Attending Provider Unavailable Arlene, Dr. Rodriguez Other Provider Unavailable Yue, Dr. Fior Bravo Attending Provider Yue, Dr. Fior Bravo Other Provider Dr. Jo-Ann Bliss Emergency Provider Esteban, Dr. Pisano Admit Provider Esteban, Dr. Pisano Attending Provider Esteban, Dr. Pisano Other Provider Dr. Maximo Addison Other Provider Dr. Goldy Olivia Emergency Provider Yue, Dr. Fior Bravo Admit Provider Dr. Wallace Durham Other Provider Dr. Freddy Benitez Attending Provider Dr. Maximo Addison Attending Provider Dr. Manuel Beebe Primary Care Provider Symone GREENHOUSE INSTRUCTOR, GREENHOUSE INSTRUCTORNardaC Martha Attending Provider Nataliav Dr. Azael Demarco Attending Provider Dr. Manuel Beebe Referring Provider So FORREST, [place] Maye Fuentes Attending Provider Dr. Juan Conte Emergency Provider Dr. Maximo Addison Admit Provider Dr. Quynh Araya Attending Provider Dr. Quynh Araya Other Provider MD Chandana Jain Other Provider MD Chandana Jain Attending Provider Nivia, Vandemere S Unavailable Albino RN, Dinorah Fuentes Unavailable Dr. Norris Fiore Referring Provider Dr. Adilson Sal Attending Provider Nivia BUSTILLO, Vandemere S Unavailable Dr. Manuel Beebe Primary Care Provider Symone GREENHOUSE INSTRUCTOR, GREENHOUSE INSTRUCTOR-C Martha Attending Provider Kamini Turner, Dr. Fior Bravo Attending Provider Yue, Dr. Fior Bravo Other Provider Dr. Maximo Addison Other Provider Esteban, Dr. Pisano Attending Provider Dr. Norris Orellana Other Provider Dr. Manuel Beebe Primary Care Provider Dr. Goldy Olivia Emergency Provider Yue, Dr. Fior Bravo Admit Provider Dr. Fior Turner Other Provider Dr. Manuel Beebe Primary Care Provider Dr. Maximo Addison Attending Provider Dr. Maximo Addison Other Provider [facility], Keti Unavailable Dr. Manuel Beebe Primary Care Provider Dr. Juan Conte Emergency Provider Dr. Maximo Addison Admit Provider Dr. Maximo Addison Other Provider Dr. Norris Orellana Attending Provider Dr. Norris Orellana Other Provider Dr. Quynh Araya Other Provider MD Chandana Jain Other Provider Dr. Adilson Sal Attending Provider Dr. Cosme Gonzáles Attending Provider Dr. Manuel Beebe Referring Provider Dr. Dwayne Horton Attending Provider Dr. Manuel Beebe Primary Care Provider Dr. Cosme Gonzáles Attending Provider Dr. Manuel Beebe Primary Care Provider Dr. Manuel Beebe Referring Provider Nivia, Dr. Aguiar Attending Provider Dr. Dwayne Horton Attending Provider Cosme Gonzáles MD Unavailable Elisa Narvaez MD Primary Care Provider MANUEL BEEBE Primary Care Unavailable MUNIRA DICKERSON Attending Unavailable Parker BUSTILLO, Dr. Manuel Chávez Primary Care Provider [phone] Rafia BUSTILLO, Dr. Pérez Attending Provider Arnold Narvaez MD, Dr. Pérez Referring Provider Arnold Gonzáles MD, Dr. Aguiar Attending Provider Parker BUSTILLO, Dr. Manuel Chávez Referring Provider Maye Hall Attending Provider Dr. Dwayne Horton MD Attending Provider Parker BUSTILLO, Dr. Manuel Chávez Primary Care Provider [phone] Rafia BUSTILLO, Dr. Pérez Attending Provider Arnold Beebe MD, Dr. Manuel Chávez Primary Care Provider Dr. Elisa Narvaez MD Attending Provider Arnold Beebe MD, Dr. Manuel Chávez Primary Care Provider Dr. Elisa Narvaez MD Attending Provider Unavailserafin Gonzáles MD, Dr. Aguiar Attending Provider Rafia BUSTILLO, Dr. Pérez Referring Provider Unavailserafin Beebe MD, Dr. Manuel Chávez Referring Provider Tahmina Vyas Attending Provider Unavailable Maye Hall Attending Provider Parker BUSTILLO, Dr. Manuel Chávez Primary Care Provider Rafia BUSTILLO, Dr. Pérez Attending Provider Unavailserafin Gonzáles MD, Dr. Aguiar Attending Provider Sol BUSTILLO, Dr. Rice Attending Provider Parker BUSTILLO, Dr. Manuel Chávez Primary Care Physician Rafia BUSTILLO, Dr. Pérez Attending Physician Unavail able Nivia BUSTILLO, Dr. Aguiar Attending Physician Tahmina Vyas Attending Physician Unavailable Maye Hall Attending Physician Sol BUSTILLO, Dr. Rice Attending Physician JONNATHAN KOTHARI Attending Unavailable GUDLA, ELISA D Primary Care Unavailable GUDLA, ELISA D Primary Care Unavailable RICHA BAKARI F Referring Unavailable GUDLA, ELISA D Primary Care Unavailable MODHA, ALEJANDROJAM Referring Unavailable JORI CHAUDHRYAL F Attending Unavailable GUDLA, ELISA D Primary Care Unavailable JONNATHAN KOTHARI A Referring Unavailable JONNATHAN KOTHARI A Referring Unavailable GUDLA, ELISA D Primary Care Unavailable SANIYA JONNTAHAN A Referring Unavailable GUDLA, ELISA D Primary Care Unavailable GUDLA, ELISA D Primary Care Unavailable MERLIN LOREDO Referring Unavailable MERLIN LOREDO Attending Unavailable EL ARNETT Attending Unavailable EL ARNETT Admitting Unavailable GUDLA, ELISA D Primary Care Unavailable GUDLA, ELISA D Primary Care Unavailable MERLIN LOREDO Referring Unavailable GUDLA, ELISA D Primary Care Unavailable MERLIN LOREDO Referring Unavailable JONNATHAN OKTHARI Referring Unavailable GUDLA, ELISA D Primary Care Unavailable MASCI, JONNATHAN A Referring Unavailable GUDLA, ELISA D Primary Care Unavailable GUDLA, ELISA D Primary Care Unavailable EL ARNETT Attending Unavailable GUDLA, ELISA D Primary Care Unavailable MERLIN LOREDO Referring Unavailable GUDLA, ELISA D Primary Care Unavailable MERLIN LOREDO Referring Unavailable GUDLA, ELISA D Primary Care Unavailable HUNG RIDLEY Referring Unavailable MODHA, ALEJANDROJAM Attending Unavailable MERLIN LOREDO Attending Unavailable MERLIN LOREDO Referring Unavailable GUDLA, ELISA D Primary Care Unavailable GUDLA, ELISA D Primary Care Unavailable MERLIN LOREDO Referring Unavailable MASCI, JONNATHAN A Referring Unavailable GUDLA, ELISA D Primary Care Unavailable GUDLA, ELISA D Primary Care Unavailable GUDLA, ELISA D Primary Care Unavailable SKYLAR SEYMOUR Referring Unavailable SANIYA, JONNATHAN A Referring Unavailable GUDLA, ELISA D Primary Care Unavailable GUDLA, ELISA D Primary Care Unavailable MODHA, KUNJAM Referring Unavailable GUDLA, ELISA D Primary Care Unavailable SKYLAR SEYMOUR Referring Unavailable GUDLA, ELISA D Primary Care Unavailable MODHA, KUNJAM Referring Unavailable GUDLA, ELISA D Primary Care Unavailable MERLIN LOREDO Referring Unavailable SANIYA, JONNATHAN A Referring Unavailable GUDLA, ELISA D Primary Care Unavailable Gudla Elisa SERRANO Referring Unavailable Gudla Elisa SERRANO Attending Unavailable Talampas, Manuel D Primary Care Unavailable Talampas, Manuel D Primary Care Unavailable Gudla Elisa SERRANO Referring Unavailable Gudla Elisa SERRANO Attending Unavailable Talampas, Manuel D Primary Care Unavailable Gudla Elisa SERRANO Attending Unavailable Talampas, Manuel D Primary Care Unavailable Gudla Elisa SERRANO Attending Unavailable Talampas, Manuel D Primary Care Unavailable Gudla Elisa SERRANO Attending Unavailable Talampas, Manuel D Primary Care Unavailable Talampas, Manuel D Referring Unavailable Dwayne Horton Attending Unavailable Nivia, Cosme Attending Unavailable Talampas, Manuel D Primary Care Unavailable Cosme Gonzáles Attending Unavailable Talampas, Manuel D Primary Care Unavailable Talampas, Manuel D Primary Care Unavailable Gudla OLS, Elisa Attending Unavailable Gudla OLS, Elisa Attending Unavailable Talampas, Manuel D Primary Care Unavailable Gudla OLS, Elisa Attending Unavailable Talampas, Manuel D Primary Care Unavailable Gudla OLS, Elisa Referring Unavailable Talampas, Manuel D Primary Care Unavailable Gudla OLS, Elisa Attending Unavailable Talampas, Manuel D Primary Care Unavailable Gudla OLS, Elisa Attending Unavailable Talampas, Manuel D Primary Care Unavailable Gudla OLS, Elisa Referring Unavailable Gudla OLS, Elisa Attending Unavailable Talampas, Manuel D Primary Care Unavailable Gudla OLS, Elisa Attending Unavailable Talampas, Manuel D Referring Unavailable Dwayne Horton Attending Unavailable Talampas, Manuel D Primary Care Unavailable Gudla OLS, Elisa Attending Unavailable Talampas, Manuel D Primary Care Unavailable Gudla OLS, Elisa Attending Unavailable Talampas, Manuel D Primary Care Unavailable Talampas, Manuel D Primary Care Unavailable Gudla OLS, Elisa Attending Unavailable Talampas, Manuel D Primary Care Unavailable Gudla OLS, Elisa Attending Unavailable Nivia, Vandemere Attending Unavailable Talampas, Manuel D Primary Care Unavailable Talampas, Manuel D Referring Unavailable Tahmina Vyas Attending Unavailable Talampas, Manuel D Primary Care Unavailable Talampas, Manuel D Referring Unavailable Talampas, Manuel D Primary Care Unavailable Maye Rizzo Attending Unavailabl e Talampas, Manuel D Primary Care Unavailable Nivia, Cosme Attending Unavailable Talampas, Manuel D Primary Care Unavailable Nivia, Vandemere Attending Unavailable Talampas, Manuel D Primary Care Unavailable Talampas, Manuel D Referring Unavailable Maye Rizzo Attending Unavailabl e Talampas, Manuel D Primary Care Unavailable Gudla OLS, Elisa Attending Unavailable Nivia, Vandemere Attending Unavailable Talampas, Manuel D Primary Care Unavailable Talampas, Manuel D Primary Care Unavailable Gudla OLS, Elisa Attending Unavailable Talampas, Manuel D Primary Care Unavailable Gudla OLS, Elisa Attending Unavailable Gudla OLS, Elisa Attending Unavailable Talampas, Manuel D Primary Care Unavailable Allergies Allergy Classification Reported Allergen(s) Allergy Type Date of Onset Reaction(s) Facility (20 sources) Acetaminophen / HYDROcodone; Translations: [HYDROCODONE-ACET AMINOPHEN] Drug Allergy 9 Intolerance, Other (See Comments) [facility] Work Phone: (20 sources) metFORMIN; Translations: [METFORMIN] Drug Allergy 1 Diarrhea [facility] Work Phone: (20 sources) oxyCODONE; Translations: [OXYCODONE] Drug Allergy 2 Itching, Headache [facility] (20 sources) Acetaminophen; Translations: [ACETAMINOPHEN] Drug Allergy 2 Other (See Comments) [facility] (10 sources) [place] grass pollen extract; Translations: [ALLERG EX,GRASS POLLEN-BERMUDA] Drug Allergy 9 Unknown [facility] (20 sources) Acetaminophen / oxyCODONE; Translations: [OXYCODONE-ACETAM INOPHEN] Drug Allergy 3 Unknown [facility] (1 source) Acetaminophen Drug Allergy 5 [facility] (1 source) oxyCODONE Drug Allergy 5 [facility] Medications Current Medications Medication Drug Class(es) Dates Sig (Normalized) Sig (Original) acetaZOLAMIDE 250 mg oral tablet (20 sources) Carbonic Anhydrase Inhibitor Start: 2023 take 1 tablet by mouth twice daily Comment on above: Take 250 mg by [...] Active Aluminum-Magnesium Hydroxide 225-200 mg/5 mL suspension (20 sources) Start: 06-19-20 take 1 mL by mouth every four hours as needed Start: 06-19-2024 take 1 mL by mouth e very four hours as needed Aluminum-Magnesium Hydroxide 225-200 mg/5 mL suspension Active 30 mL PO EVERY 4 HOURS NEEDED June 19, 2024 12:00am Start: 06-21-2023 End: 06-26-2023 take 1 mL by mouth every four hours as needed Aluminum-Magnesium Hydroxide 225-200 mg/5 mL suspension Discontinued 30 mL PO EVERY 4 HOURS NEEDED June 21, 2023 12:00am June 26, 2023 9:26am apixaban 5 mg oral tablet (20 sources) Factor Xa Inhibitor Start: 07-16-2025 take 1 tablet by mouth twice daily Start: 01-24-2025 End: 07-16-2025 take 1 tablet by mouth twice daily Apixaban (Eliquis) 2.5 mg tablet Discontinued 2.5 mg PO TWICE A DAY January 24, 2025 12:00am July 16, 2025 3:03pm Start: 11-01-2019 End: 01-24-2025 take 1 tablet by mouth twice daily Apixaban (Eliquis) 5 mg tablet Discontinued 0 .ROUTE .COMPLEX 60 May 19, 2022 10:54am April 13, 2023 4:58pm TAKE ONE (1) TABLET BY MOUTH TWICE DAILY Comment on above: Take by mouth twice daily. Take 1 tablet by suad th twice daily. baclofen 20 mg oral tablet (20 sources) gamma-Aminobutyric Acid-ergic Agonist Start: 01-24-2025 take 1 tablet by mouth three times daily Start: 06-19-2024 End: 01-24-2025 take 10 mg by mouth three times daily Baclofen 20 mg tablet Discontinued 10 mg PO THREE TIMES A DAY June 19, 2024 2:14pm January 24, 2025 8:45am muscle pain/spasm Start: 06-26-2023 End: 06-26-2023 take 10 mg by mouth three times daily Baclofen Active 10 MG PO THREE TIMES A DAY 90 June 26, 2023 9:29am Start: 03-08-2023 End: 02-16-2024 take 10 mg by mouth three times daily as needed for muscle spasms Baclofen 20 mg tablet Discontinued 10 mg PO THREE TIMES A DAY as needed for BACK spasm 90 5 June 26, 2023 9:29am February 16, 2024 2:25pm Start: 08-09-2022 End: 06-19-2024 take 1 tablet by mouth three times daily Baclofen 20 mg tablet Discontinued 20 mg PO THREE TIMES A DAY 90 5 February 16, 2024 2:22pm June 19, 2024 2:23pm muscle pain/spasm Start: 05-24-2022 End: 08-09-2022 take 1 tablet by mouth three times daily Baclofen 10 mg tablet Discontinued 10 mg PO THREE TIMES A DAY 90 3 May 24, 2022 12:00am August 09, 2022 3:44pm Comment on above: Take 20 mg by mouth three times daily. Take 20 mg by mouth three times a day. 10 MG by mouth three times daily as needed bicalutamide 50 mg oral tablet (20 sources) Androgen Receptor Inhibitor Start: 12-10-2021 take 1 tablet by mouth once daily Comment on above: Take 50 mg by mouth once daily. bisacodyl 10 mg rectal suppository (20 sources) Stimulant Laxative Start: 06-21-2023 Blood-Glucose Meter (4 sources) Start: 02-03-2022 End: 02-04-2022 Blood-Glucose Meter Indications: Controlled type 2 diabetes mellitus without complication, with long-term current use of insulin (FORMERLY [facility]) Test Two times a day. Insulin Dep? [...] 2 Puffs as in structed twice daily. bumetanide 1 mg oral tablet (20 sources) Loop Diuretic Start: 07-16-2025 take 1 tablet by mouth once daily Start: 06-21-2023 End: 07-16-2025 take 1 tablet by mouth once daily [...] DAY April 25, 2022 12:00am 2023 2:33pm water pill On Hold: Resume on 04/27/23. Start: 04-17-2019 End: 07-10-2020 take 1-2 mg by mouth twice daily Bumetanide 1 mg tablet Discontinued 1 - 2 mg PO TWICE A DAY April 17, 2019 12:14pm July 10, 2020 1:34pm Swelling Start: 10-30-2018 End: 06-21-2023 take 1 tablet by mouth once daily Bumetanide 1 mg tablet Discontinued 1 mg PO DAILY February 03, 2022 4:22pm April 01, 2022 6:56pm Swelling Start: 10-30-2018 End: 04-01-2022 take 3 mg [...] once daily. Take 3 tablets by mo uth once daily. Calcium (11 sources) Phosphate Binder, Calcium [...] Aromatic Amino Acid Start: 2023 End: 06-19-2024 Start: 2023 take 1 tablet by suad [...] mg tablet Discontinued 1 {tbl} PO .COMPLEX 90 0 December 23, 2022 4:22pm December 24, 2022 [...] daily Carbidopa-Levodopa Discontinued 1 TABLET PO .COMPLEX 90 December 23, 2022 4:22pm December 24, 2022 12:00am 1 Tab PO daily for one week then 1 tab BID for one week then 1 tab TID thereafter; Do not take within 2 hours of iron supplement dose Start: 12-23-2022 End: 04-11-2023 Comment on above: Take 1 tablet by suad th three times daily. cholecalciferol 0.05 mg oral capsule (20 sources) Vitamin D Start: 10-06-2023 take 1 capsule by mouth once daily take 1 tablet by mouth once ben [...] ALBINO diclofenac sodium 0.01 mg/mg topical gel (20 sources) Nonsteroidal Anti-inflammatory Drug Start: 01-24-2025 apply 2 g topically every twelve hours as needed diclofenac (VOLT AREN ARTHRITIS PAIN) 1 % topical gel Apply one application to right hip topically every 12 hours as needed for pain. Active docusate sodium 100 mg oral capsule (20 sources) Start: 2023 take 1 capsule by mouth twice daily Comment on above: Take 100 mg by mouth two times a day. 0.5 ml dulaglutide 3 mg/ml auto-injector (20 sources) GLP-1 Receptor Agonist Start: 06-18-2025 Start: 06-21-2023 End: 06-19-2024 Dulaglutide (Trulicity) 1.5 mg/0.5 mL pen injector Discontinued 1.5 mg SC FR June 21, 2023 12:00am June 19, 2024 2:21pm DIABETES Comment on above: Inject 1.5 mg subcut aneously one time a week. 30 actuat fluticasone furoate 0.1 mg/actuat / vilanterol 0.025 mg/actuat dry powder inhaler (20 sources) Corticosteroid, beta2-Adrenergic Agonist Start: 04-11-2023 Fluticasone Furoate-Vilanterol Active 1 [...] 02/03/2022 Active glucagon (rdna) 1 mg injection (11 sources) Antihypoglycemic Agent Start: 01-24-2025 GLUCAGON EMERGENCY KIT, HUMAN, INJECTION (20 sources) [...] mg/mg oral gel (20 sources) Start: 04-23-2023 Start: 04-23-2023 Dextrose (Gluc ose Gel) 40 % Gel Active 15 GM PO Q15M April 23, 2023 12:00am until symptoms of low blood sugar are controlled Start: 04-23-2023 dextrose (GLUCOS E GEL ORAL) Take 1 Dose by mouth as needed. Active dextrose (GLUCOS E GEL ORAL) Take 1 Dose by mouth as needed. 0 Active guaiFENesin 20 mg/ml oral so lution (20 sources) Start: 06-19-2024 take 200 mg by mouth every four hours as needed take 10 mL by mouth every four hours as needed GUAIFENESIN ORAL Take 10 mL by mouth eugenia ry 4 hours as needed. Active take 10 mL by mouth every four hours as needed GUAIFENESIN ORAL Take 10 mL by mouth eugenia ry 4 hours as needed. 0 Active 3 ml insulin glargine 100 un t/ml pen injector (20 sources) Insulin Analog Start: 06-18-2025 Start: 01-24-2025 End: 06-18-2025 Insulin Glargine 100 unit/mL (3 mL) insulin pen Discontinued 10 U SC EVERY EVENING January 24, 2025 8:33am June 18, 2025 2:15pm DIABETES Hold if glucose less than 130 mg/dl Start: 06-19-2024 End: 01-24-2025 Insulin Glargine 100 unit/mL (3 mL) insulin pen Discontinued 8 U SC DAILY June 19, 2024 2:15pm January 24, 2025 8:45am DIABETES Hold if glucose less than 130 mg/dl Start: 06-26-2023 End: 06-19-2024 Insulin Glargine 100 UNIT/ML insulin pen Discontinued 10 U SC DAILY 15 2 June 26, 2023 9:22am June 19, 2024 2:23pm DIABETES Hold if glucose less than 130 mg/dl [...] October 30, 2018 4:11pm Start: 10-30-2018 End: 06-26-2023 Insulin Glargine 100 UNIT/ML insulin pen Discontinued 37 U SC AT BEDTIME October 30, 2018 1:00am June 26, 2023 9:22am DIABETES Start: 10-30-2018 End: 03-23-2023 insulin glargine (BASAGLAR K WIKPEN U-100 INSULIN) 100 unit/mL (3 mL) Indications: diabetes mellitus Inject 27 Units subcutaneously daily at bedtime. Adjust dose as directed 9 mL 2 03/23/2023 Active Start: 10-30-2018 End: 06-26-2023 Start: 10-30-2018 End: [...] solution (20 sources) Osmotic Laxative Start: 06-19-2024 Start: 06-26-2023 End: 06-19-2024 Lactulose 20 gram/30 mL Solu tion Discontinued 20 g PO THREE TIMES A DAY 2880 2 June 26, 2023 12:00am June 19, 2024 [...] 21, 2023 12:00am October 06, 2023 4:59pm CONSTIPATION take 45 mL by mouth three times daily lactulose 20 gram/30 mL solution Take 45 mL by mouth three times a day. Active Comment on above: Take 20 g by mouth t hree times a day. 30mL lisinopril 5 mg oral tablet (20 sources) Angiotensin Converting Enzyme Inhibitor Start: 10-06-2023 take 1 tablet by mouth once daily Start: 2023 End: 10-06-2023 Lisinopril 20 mg tablet Disc ontinued 20 mg PO DAILY 2023 12:00am October 06, 2023 5:00pm BLOOD PRESSURE On Hold: Hold for 7 days and repeat BMP. If blood pressure is high more than 140 mmHg, resume at lower dose 5 mg daily. Start: 10-30-2018 End: 08-28-2024 take 1 tablet by mouth once daily Lisinopril 40 mg tablet Discontinued 40 mg PO DAILY September 09, 2022 12:00am 2023 2:31pm blood pressure On Hold: Resume on 04/26/23. Comment on above: Take 1 tablet by suad once daily. LORazepam 0.5 mg oral tablet (2 sources) Benzodiazepine Start: 2 take 0.5 mg by mouth at bedtime as needed Lorazepam Active 0.5 MG PO AT BEDTIME NEEDED 7 7 April 01, 2022 6:57pm magnesium hydroxide 80 mg/ml oral suspension (20 sources) Start: take 1 mL by mouth once daily as needed Start: 01-24-2025 take 1 mL by mouth o nce daily as needed Magnesium Hydroxide (Milk Of Magnesia) 400 mg/5 mL suspension Active 30 mL PO daily as needed January 24, 2025 12:00am magnesium hydrox joe (MILK OF MAGNESIA ORAL) Take 30 mL by mouth as needed. Active magnesium hydrox joe (MILK OF MAGNESIA ORAL) Take 30 mL by mouth as needed. 0 Active menthol 100 mg/ml / methyl s alicylate 150 mg/ml topical cream (20 sources) Start: 06-19-2024 methyl salicylat e-menthol (MUSCLE RUB) 15-10 % topical cream Apply to right hip topically in the morning for pain. Active mineral oil 1000 mg/ml enema (11 sources) Start: 06-19-2024 multivitamin (THERAGRAN) per tablet (11 sources) take [...] on above: Take 1 capsule by mo [facility] once daily. Multivitamin preparation (20 sources) Start: [...] DAILY February 19, 2022 12:00am Multivitamin Tablet (11 sources) Start: 02-19-2022 Start: 02-19-2022 Multivitamin T ablet Active 1 {tbl} PO DAILY February 19, 2022 12:00am supplement Start: 02-19-2022 Multivitamin T ablet Active 1 {tbl} PO DAILY February 19, 2022 12:00am Mv,Ca,Qio-Ykcd-Dg-Lycopene (Centrum Ultra Men's) 8 mg iron- 200 mcg-600 mcg tablet (1 source) Start: 12-10-2021 Mv,Ca,Gqr-Udwo-Fm-Lycopene (Centrum Ultra Men's) 8 mg iron- 200 [...] 5 minutes as needed for Chest Pain. [place] 9-Evp-Sab-Fish Oil (Fish Oil) 60-90-500 mg capsule (1 source) Start: 12-10-2021 take 1 capsule by mouth once daily [place] 9-Gqk-Rnw-Fish Oil (Fish Oil) 60-90-500 mg capsule Active 1 CAP PO DAILY December 10, 2021 11:26am ondansetron 4 mg oral tablet (20 sources) Serotonin-3 Receptor Antagonist Start: 06-19-2024 take 1 tablet by mouth every eight hours Start: 04-12-2023 take 1 tablet by suad [...] tablet (20 sources) Proton Pump Inhibitor Start: 01-24-2025 take 1 tablet by mouth once daily Start: 06-21-2023 End: 12-12-2024 take 1 tablet by mouth twice daily Pantoprazole 40 mg tablet,delayed release (DR/EC) Discontinued 40 mg PO TWICE A DAY June 21, 2023 12:00am December 12, 2024 12:16pm ACID REFLUX Comment on above: Take 40 mg by mouth two times a day. potassium chloride 20 meq extended release oral tablet (20 sources) Start: 01-24-2025 take 1 tablet by mouth once daily Start: 06-19-2024 End: 12-12-2024 take 1 tablet by mouth once daily Potassium Chloride 20 mEq tablet extended release Discontinued 20 meq PO DAILY June 19, 2024 12:00am December 12, 2024 12:16pm Start: 2023 End: 10-06-2023 take 1 tablet by mouth once daily Potassium Chloride 20 mEq tablet extended release Discontinued 20 meq PO DAILY 2023 12:00am October 06, 2023 5:01pm SUPPLEMENT On Hold: Hold while taking Neutra-Phos take 1 tablet by suad th once daily potassium chloride ER (KLOR-CON) 20 mEq tablet Take 20 mEq by mouth once daily. Active Potassium, Sodium Phosphates (6 sources) Start: 06-26-2023 Potassium, Sod ium Phosphates Active 1 PACKET PO THREE TIMES A DAY 9 3 June 26, 2023 12:00am Start: 06-26-2023 Potassium, Sod ium Phosphates Active 1 PACKET PO THREE TIMES A DAY 9 June 25, 2023 11:00pm pravastatin sodium 20 mg oral tablet (8 sources) HMG-CoA Reductase Inhibitor Start: 10-30-2018 pravastatin (PRAVACHOL) 20 MG tablet 20 mg . 0 10/30/2018 Active Sennosides (Senna) 8.6 mg tablet (16 sources) Start: 06-21-2023 take 2 tablets by mouth at bedtime Sennosides (Senna) 8.6 mg tablet Active 17.2 mg PO AT BEDTIME June 21, 2023 12:00am CONSTIPATION Start: 06-21-2023 take 2 tablets by mo [...] AT BEDTIME June 20, 2023 11:00pm sennosides, detention 8.6 mg oral tablet (20 sources) Start: 06-21-2023 take 2 tablets by mo uth at bedtime take 2 capsules by m outh once daily at bedtime Sennosides 8.6 mg cap Take 17.2 mg by mouth daily at bedtime. Active Comment on above: Take 17.2 mg by mout h daily at bedtime. sertraline 50 mg oral tablet (20 sources) Serotonin Reuptake Inhibitor Start: 10-18-2023 take 1 tablet by mouth once daily Comment on above: Take 50 mg by mouth once daily. sodium phosphate,mono-dibasi c (FLEET ENEMA RECTAL) (20 sources) sodium phosphate,mono-d ibasic (FLEET ENEMA RECTAL) 1 Enema by RECTAL route as needed. Active sodium phosphate ,mono-dibasic (FLEET ENEMA RECTAL) 1 Enema by RECTAL route as needed. 0 Active tiZANidine 2 mg oral tablet (2 sources) Central alpha-2 Adrenergic Agonist Start: 04-01-2022 take 4 mg by mouth twice daily Tizanidine Active 4 MG PO TWICE A DAY April 01, 2022 6:57pm topiramate 25 mg oral tablet (20 sources) Start: 10-07-2020 End: 09-22-2022 take 2 tablets by mouth twice daily Topiramate Active 25 MG PO TWICE A DAY September 09, 2022 12:00am 2 tabs bid Start: 10-30-2018 take 25 mg by mouth twice ben y Topiramate Active 25 MG PO TWICE A DAY October 30, 2018 4:06pm take 1 capsule by mo ut twice daily topiramate (TOPAMAX) 25 MG capsule Take 25 mg by mouth 2 (two) times a day . 0 Active Comment on above: Take 2 tablets by mo ut twice daily. traMADol hydrochloride 50 mg oral tablet (20 sources) Opioid Agonist Start: 01-24-2025 take 1 tablet by mouth every six hours as needed for pain Start: 10-13-2023 End: 01-24-2025 take 1 tablet [...] as needed for LOWER BACK PAIN 7 7 0 June 26, 2023 9:22am October 13, 2023 12:10pm Start: 04-01-2022 End: 06-23-2022 take 50 mg by mouth every six hours as needed Tramadol Active 50 MG PO EVERY 6 HOURS NEEDED 28 7 April 01, 2022 12:00am Comment on above: Take [...] 12:00am Start: 02-19-2022 take 1 tablet by suad once daily Cyanocobalamin (Vitamin B-12) (Vitamin B-12) 250 mcg Tablet Active 250 MCG PO DAILY February 19, 2022 12:00am Start: 12-10-2021 take 2500 ug by mout h once daily Cyanocobalamin (Vitamin B-12) Active 2500 MCG PO DAILY December 10, 2021 11:26am Comment on above: Take 1,000 mcg by mo ut once daily. (20 sources) Start: 06-26-2023 Start: 06-21-2023 End: 06-26-2023 Start: 06-21-2023 Start: 02-19-2022 Completed/Discontinued Medications Medication Drug Class(es) Dates Sig (Normalized) Sig (Original) acetaminophen 325 mg / HYDROcodone bitartrate 5 mg oral tablet (20 sources) Opioid Agonist Start: 01-05-2019 End: 01-08-2019 Hydrocodone-Acetami nophen 1 TABLET tablet Discontinued 1 {tbl} PO EVERY 6 HOURS NEEDED as needed for Pain 10 3 0 January 05, 2019 1:00am January 07, 2019 1:00am January 08, 2019 1:10am Contusion of back Contusion of unspecified back wall of thorax, initial encounter Start: 01-05-2019 End: 01-08-2019 take 1 tablet by mouth every six hours as needed Hydrocodone-Acetaminophen Discontinued 1 TABLET PO EVERY 6 HOURS NEEDED 10 3 January 05, 2019 1:00am January 08, 2019 1:10am [...] tablet,chewable Discontinued 81 mg PO DAILY@0800 30 30 0 May 26, 2020 12:00am June 24, 2020 12:00am June 25, 2020 12:02am Start: 01-31-2019 End: 04-18-2019 take 1 tablet by mouth once daily Aspirin 81 MG tablet Discontinued 81 mg PO DAILY@0800 January 31, 2019 12:00am April 18, 2019 2:51pm HEART Comment on above: Take 1 tablet by suad th once daily. Benzocaine (1 source) Standardized Chemical Allergen Start: End: TOPICAL, X (OR/PROCEDURE) PRN, Starting on Tue08/22/24 at 1047, Until Tue08/22/24 at 1047, Intraprocedure 168 hr buprenorphine 0.005 mg/hr transdermal system (20 sources) Partial Opioid Agonist Start: End: apply 5 ug transdermal route every week Buprenorphine 5 mcg/hour Patch Weekly Discontinued 1 NMA TD Q7D March 17, 2022 12:00am April 01, 2022 6:56pm Pain Calcium Carbonate (20 sources) End: take 1 tablet by [...] Take 1 tablet by suad once daily. carvedilol 3.125 mg oral tablet (20 [...] 10, 2023 12:00am March 10, 2023 12:05pm Dose increased, pt awaiting mail order RX must administer with a meal/food Start: 09-09-2022 End: 07-17-2025 take 1 tablet by mouth twice daily Carvedilol 3.125 mg tablet Discontinued 3.125 mg PO TWICE A DAY April 13, 2023 12:00am June 18, 2025 2:15pm HEART Comment on above: TAKE 1 TABLET BY SUAD TWICE DAILY WITH MEAL/FOOD Take 1 tablet by suad twice daily. In addition to 3.125mg in packets from [facility] Take 1 tablet by suad twice daily with meals. Take 1 tablet by suad twice daily. cephalexin 500 mg oral capsule (20 [...] mg oral capsule (20 sources) Antiarrhythmic, Uncompetitive Y-uznjxh-J-aspartate Receptor Antagonist, Cytochrome P450 2D6 Inhibitor, Sigma-1 Agonist Start: 10-17-2023 End: 03-28-2024 take 1 capsule by mouth once daily, then take 1 capsule by mouth twice daily Dextromethorphan-Quinidine (Nuedexta) 20-10 mg capsule Discontinued 0 .ROUTE .COMPLEX 60 4 October 17, 2023 5:30pm March 28, 2024 11:35am Take 1 capsule orally daily for 1 week then 1 capsule twice daily thereafter Start: 10-17-2023 End: 10-17-2023 take 1 capsule by mouth twice daily Dextromethorphan-Quinidine (Nuedexta) 20 -10 mg capsule Discontinued 1 NMA PO TWICE A DAY 60 4 October 17, 2023 1:00am October 17, 2023 5:31pm docusate sodium 50 mg / sennosides, detention 8.6 mg oral tablet (20 sources) Start: 05-25-2020 End: 05-08-2021 Sennosides-Docusate Sodium 1 TABLET tablet Discontinued 2 {tbl} PO TWICE DAILY NEEDED as needed for Constipation 0 May 25, 2020 12:00am May 08, 2021 8:51am Start: 05-25-2020 End: 05-08-2021 take 2 tablets by mouth twice daily as needed Sennosides-Docusate Sodium Discontinued 2 TABLET PO TWICE DAILY NEEDED May 25, 2020 12:00am May 08, 2021 8:51am Start: 05-25-2020 End: 05-08-2021 dulaglutide (TRULICITY) 3 mg/0.5 mL pen injector [...] subcutaneously one time a week. 0 Active 0.85 ml exenatide 2.35 mg/ml auto-injector (20 sources) GLP-1 Receptor Agonist Start: 06-19-2024 End: 06-18-2025 Exenatide Microspheres (Bydureon Bcise) 2 mg/0.85 mL auto-injector Discontinued 2 mg SC EVERY WEEK June 19, 2024 12:00am June 18, 2025 2:15pm 1 ml fentaNYL 0.05 mg/ml injection (1 [...] 14 days. E11.65, Z79.4 2 Each 04/03/2021 02/03/2022 Discontinued (Cost of medication) Start: [...] U SC BEFORE MEALS AND AT BEDTIME Protocol: - Use for Total Daily Dose of Insulin 37-55 units- Obsese, infected, or steroid patientsMEDIUM DOSING ALGORITHIM Condition: 150-189 mg/dl = 1 unit Condition: 190-229 mg/dl = 2 units Condition: 230-269 mg/dl = 3 units Condition: 270-309 mg/dl = 4 units Condition: 310-349 mg/dl = 5 units Condition: 350-399 mg/dl = 6 units Condition: 400-449 mg/dl = 7 units Condition: Greater than 449 call physician 0 0 June 26, 2023 12:00am June 19, 2024 2:21pm Please contact the information source for Protocol details. Start: 06-26-2023 End: 06-19-2024 Insulin Lispro (Humalog Kwik pen Insulin) 100 unit/mL Insulin Pen Discontinued 0 U SC BEFORE MEALS AND AT BEDTIME 0 0 June 26, 2023 12:00am June 19, [...] MG tablet Discontinued 60 mg PO DAILY 30 30 0 May 26, 2020 12:00am June 24, 2020 12:00am June 25, 2020 12:02am lactobacillus rhamnosus gg [id number] unt oral capsule (20 sources) Start: 06-21-20 End: 06-21-20 take 10 capsules by mouth twice daily Lactobacillus Rhamnosus Gg (Culturelle) 10 billion cell capsule Discontinued 1 NMA PO TWICE A DAY June 21, 2023 12:00am June 21, 2023 4:36pm Start: 06-21-2023 End: 06-21-2023 0.375 ml leuprolide acetate 60 mg/ml prefilled syringe (6 sources) Gonadotropin Releasing Hormone Receptor Agonist Start: 05-29-2025 End: 05-29-2025 inject 1 dose by subcutaneous injection once 22.5 mg, SUBCUTANEOUS, ONCE, 1 dose, On Tue05/29/25 at 1400, Hazardous Chemotherapy Drug: Use appropriate PPE. Start: 03-06-2025 End: 03-06-2025 inject 1 dose [...] 21, 2023 12:00am March 28, 2024 11:35am RIGHT HIP PAIN APPLY TO RIGHT HIP TOPICALLY IN THE MORNING FOR PAIN Start: 04-01-2022 End: 09-09-2022 Lidocaine 5 % Adhesive Patch ,Medicated Discontinued 2 NMA TOPICAL DAILY 60 30 0 April 01, 2022 12:00am September 09, 2022 [...] Discontinued 2000 mg PO DAILY 360 90 0 April 17, 2019 12:00am May 25, 2020 [...] 12, 2020 1:00am April 14, 2021 4:34pm blood pressure Start: 03-05-2020 End: 12-12-2020 take 1 tablet by mouth once daily Metoprolol Succinate 50 mg tablet extended release 24 hr Discontinued 50 mg PO DAILY 06 10April 07, 2020 1:21pm December 12, 2020 2:55pm Start: 11-01-2019 End: 03-05-2020 take 2 tablets by mouth once daily Metoprolol Succinate 25 mg tablet extended release 24 hr Discontinued 12.5 mg PO DAILY 19 01November 01, 2019 1:00am March 05, 2020 10:02am [...] 30, 2018 1:00am April 17, 2019 12:12pm blood pressure Comment on above: Take 1 tablet by suad th every evening. 5 ml midazolam 1 mg/ml injection (1 source) Benzodiazepine Start: 08-22-20 End: 08-22-20 INTRAVENOUS, X (OR/PROCEDURE) PRN, Starting on Tue08/22/24 at 1047, Until Tue08/22/24 at 1052, Intraprocedure nadolol 20 mg oral tablet (20 sources) beta-Adrenergic Zeeshan Start: 04-14-20 End: 09-09-20 take 1 tablet by mouth once daily Nadolol 20 mg tablet Discontinued 10 mg PO DAILY 45 3 May 19, 2022 11:16am September 09, 2022 11:49am bp Start: 04-14-2021 End: 09-09-2022 take 10 mg by mouth once daily Nadolol Discontinued 10 MG PO DAILY 45 May 19, 2022 11:16am September 09, 2022 [...] 09, 2022 12:00am June 21, 2023 4:32pm reflux take 1 capsule by mo ut once daily omeprazole (PRILOSEC) 20 MG capsule Take 20 mg by mouth daily . 0 Active Comment on above: Take 1 capsule by mo [facility] twice daily. polysaccharide iron complex 150 mg oral capsule (20 sources) Start: 04-01-2022 End: 04-25-2022 Polysaccharide Iron Complex (Ferrex 150) 150 mg iron Capsule Discontinued 150 mg PO DAILY 30 0 April 01, 2022 12:00am April 25, 2022 8:39pm Potassium, Sodium Phosphates 280-160-250 mg Powder In Packet (11 sources) Start: 06-26-2023 End: 06-19-2024 Potassium, Sodium Phosphates 280-160-250 mg Powder In Packet Discontinued 1 NMA PO THREE TIMES A DAY 9 3 0 June 26, 2023 12:00am June 19, 2024 2:22pm Start: 06-26-2023 End: 06-19-2024 Potassium, Sodium Phosphates 280-160-250 mg Powder In Packet Discontinued 1 NMA PO THREE TIMES A DAY 9 3 June 26, 2023 12:00am June 19, 2024 2:22pm Remove Patch (17 sources) Start: 06-26-2023 End: 03-28-2024 apply 1 dose topically once daily Remove Patch Discontinued 1 NMA TOPICAL DAILY@2200 0 June 26, 2023 12:00am March 28, 2024 11:36am Start: 06-26-2023 apply 1 dose topically once da wing Remove Patch Active 1 PATCH TOPICAL DAILY@2200 0 June 26, 2023 12:00am Start: 06-26-2023 apply 1 dose topically once da wing Remove Patch Active 1 PATCH TOPICAL DAILY@2200 0 June 25, 2023 11:00pm rifAXIMin 550 mg oral tablet (20 sources) Rifamycin Antibacterial Start: 06-26-2023 End: 08-28-2024 take 1 tablet by mouth twice daily Rifaximin (Xifaxan) 550 mg Tablet Discontinued 550 mg PO TWICE A DAY 0 0 June 26, 2023 12:00am March 28, [...] 80 mg PO TWICE A DAY 180 3 September 08, 2021 2:43pm December 10, 2021 11:28am heart rate Start: 05-13-2020 End: 02-03-2022 take 1 tablet [...] tablet (20 sources) Aldosterone Antagonist Start: 10-30-20 End: 05-25-20 take 1 tablet by mouth twice daily Spironolactone 25 tablet Discontinued 25 mg PO TWICE A DAY October 30, 2018 1:00am May 25, 2020 10:12am diuretic Start: 10-30-2018 End: 08-28-2024 take 1 tablet by mouth once daily Spironolactone 25 mg Tablet Discontinued 25 mg PO DAILY February 19, 2022 12:00am April 01, 2022 6:56pm Check with primary doctor Comment on above: Take 1 tablet by suad th once daily. Take 25 mg by mouth once daily. tamsulosin hydrochloride 0.4 mg oral capsule (20 sources) alpha-Adrenergic Zeeshan Start: 1 End: take 1 capsule by mouth at bedtime Tamsulosin 0.4 mg capsule Discontinued 0.4 mg PO AT BEDTIME May 08, 2021 12:00am January 06, 2023 2:44pm urinary Comment on above: TAKE 1 CAPSULE BY MO UTH AT BEDTIME Take 1 capsule by mo uth daily at bedtime. traZODone hydrochloride 50 mg oral tablet (20 sources) Serotonin Reuptake Inhibitor Start: 2 End: 2 take 1 tablet by mouth at bedtime Trazodone 50 mg tablet Discontinued 50 mg PO AT BEDTIME 06 03August 09, 2022 12:00am September 09, 2022 11:22am Start: 08-09-2022 End: 09-09-2022 warfarin sodium 3 mg oral tablet (20 sources) Vitamin K Antagonist Start: 10-30-2018 End: 11-01-2019 Warfarin 3 MG tablet Discontinued 3 mg PO October 30, 2018 1:00am November 01, 2019 12:38pm blood thinner Start: 10-30-2018 End: 11-01-2019 take 2 tablets by mouth once Warfarin 3 MG tablet Disc ontinued 6 mg PO every Tuesday, , TueOctober 30, 2018 1:00am November 01, 2019 12:38pm blood thinner Start: 10-30-2018 End: 11-01-2019 take 6 mg by mouth once Warfarin Discontinued 6 MG P O every , TueOctober 30, 2018 1:00am November 01, 2019 [...] [Chronic kidney disease, unspecified] Onset: 3 Chronic Coagulation and hemorrhagic disorders (20 sources) [...] Coronary atherosclerosis; Translations: [Atherosclerotic heart disease of [place] coronary artery without angina pectoris] Onset: 9 [...] unspecified cerebrovascular disease] Onset: 4 11-02-2021 Chronic Malaise and fatigue (20 sources) Asthenia; Translations: [Other malaise] Onset: 4 11-02-2021 Episodic Mood disorders (9 sources) Moderate recurrent major depression; Translations: [Major depressive disorder, recurrent, moderate] Onset: 5 07-17-2025 Chronic Nausea and vomiting (20 sources) Nausea; Translations: [Nausea] Episodic Neoplasms of unspecified nature or uncertain behavior (20 sources) Neoplasm of brain; Translations: [Neoplasm of unspecified behavior of brain] Onset: 4 11-02-2021 Chronic Nonspecific chest pain (20 sources) Chest pain; Translations: [Chest pain, unspecified] Episodic Osteoporosis (4 sources) Senile osteoporosis; Translations: [Age-related osteoporosis without current pathological fracture] 01-06-2024 Chronic Other aftercare (20 sources) Long-term current use of anticoagulant; Translations: [penitentiary (current) use of anticoagulants] Onset: 7 02-24-2017 Episodic Other aftercare (1 source) 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 terminal 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 (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; Translations: [Other ad terminal 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 (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] Onset: Episodic Other and ill-defined heart disease (20 sources) Right ventricular systolic dysfunction; Translations: [Other ill-defined heart diseases] 01-25-2022 Chronic Other and ill-defined heart disease (13 sources) Other ill-defined heart diseases; Translations: [Heart disease, unspecified] Chronic Other circulatory disease (20 sources) History of cerebrovascular accident; Translations: [Personal history of transient ischemic attack (TIA), and cerebral infarction without residual deficits] Onset: 1 02-24-2017 Episodic Other circulatory disease (16 sources) Personal history [...] system] 05-24-2022 Episodic Other connective tissue disease (15 sources) Monoparesis - leg; Translations: [Other symptoms and signs involving the musculoskeletal system] 07-04-2023 Episodic Other connective tissue disease (17 sources) Increased muscle tone; Translations: [Other specified disorders of muscle] 08-18-2024 Episodic Other connective tissue disease (1 source) Other symptoms and signs involving the musculoskeletal system; Translations: [Weakness of left lower extremity] 05-24-2022 Episodic Other diseases of veins and lymphatics [...] alcohol] Onset: 9 Chronic Other liver diseases (18 sources) Disease of liver; Translations: [Liver disease, unspecified] Chronic Other liver diseases (1 source) Liver disease, unspecified; Translations: [Liver disease] Onset: 5 Chronic Other lower respiratory disease (20 sources) [...] sources) Metabolic encephalopathy; Translations: [Metabolic encephalopathy] Onset: 5 Chronic Other nervous system disorders (20 sources) Abnormal gait; Translations: [Unspecified abnormalities of gait and mobility] 08-09-2022 Episodic Other nervous system disorders (13 sources) Unspecified abnormalities of gait and mobility; Translations: [Abnormality of gait] Episodic Other nervous system disorders (20 sources) Toxic metabolic encephalopathy; Translations: [Toxic metabolic encephalopathy] 06-22-2023 Episodic Other nervous system disorders (1 source) Other acute postprocedural pain; Translations: [Post-op pain] Onset: 5 Episodic Other non-traumatic joint disorders (2 sources) [...] disease (2 sources) Parkinson`s disease; Translations: [Parkinson's disease, unspecified whether dyskinesia present, unspecified whether manifestations fluctuate (HCC)] Onset: 3 Rosaura-; endo-; and myocarditis; cardiomyopathy (except that caused by tuberculosis or sexually transmitted disease) (20 sources) Cardiomyopathy; Translations: [Other cardiomyopathies] Onset: 5 Chronic Peripheral and visceral atherosclerosis (20 sources) [...] (adult) (pediatric)] 04-14-2017 Chronic Residual codes; unclassified (1 source) Obstructive sleep apnea (adult) (pediatric); Translations: [ALBINO (obstructive sleep apnea)] Onset: 7 Chronic Residual codes; unclassified (20 sources) H/O: [...] Respiratory failure; insufficiency; arrest (adult) (20 sources) Ifply-in-hvoeosk respiratory failure; Translations: [Acute and chronic respiratory failure with hypoxia] Onset: 3 Chronic Secondary malignancies (1 source) Secondary malignant neoplasm of bone; Translations: [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)] Onset: 5 Chronic Spondylosis; intervertebral disc disorders; other back problems (3 sources) Low back pain; Translations: [Low back pain without sciatica, unspecified back pain laterality, unspecified chronicity] Episodic Superficial injury; contusion (1 source) Contusion of left shoulder; Translations: [Contusion of left shoulder, initial encounter] 10-04-2021 Episodic Syncope (20 sources) Near syncope; Translations: [Syncope and collapse] 12-03-2019 Episodic Thyroid disorders (20 sources) Thyroid nodule; Translations: [Nontoxic single thyroid nodule] 12-23-2022 Chronic Unclassified (16 sources) Parkinsonism; Translations: [Parkinsonism] 11-30-2023 Chronic Unclassified (2 sources) Preprocedural examination done 05-17-2025 Unclassified (7 sources) Autogenerated Problem Onset: 5 07-08-2025 Unclassified (1 source) Parkinsonism, unspecified; Translations: [Parkinsonism, unspecified] Onset: 5 Unclassified (1 source) Longstanding persistent atrial fibrillation; Translations: [Longstanding persistent atrial fibrillation] Onset: 5 Urinary tract infections (20 sources) Acute urinary tract infection; Translations: [Urinary tract infection, site not specified] 10-04-2021 Episodic Past or Other Problems Problem Classification [...] [Post traumatic seizures] Onset: 12-31-2013 11-02-2021 Episodic Other aftercare (20 sources) Drug therapy finding; Translations: [penitentiary (current) use of anticoagulants] Onset: 10-25-2019 10-25-2019 Episodic Other aftercare (1 source) 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 Dumont. Patient was referred by wild oyster harvester Dr. Urrutia to [facility] due to the patient residing in senior living in the region. Patient is unable to stand/walk from wheel chair. The decision tree pulled 6 minute walk PFT. Please notify Bob if six minute walk can be cancelled. Patient is scheduled for chest x-ray, PFTs, and OV on 09/20/25. Tamar Collier LPN 09/04/2025 3:54 PM Signed PFTs completed 07/30 with CXR prior to visit with Dr. Chaudhry- is it necessary for patient to repeat? CALVIN Garcia Kathleen, LPN 09/05/2025 8:24 AM Signed Spoke with Bob HERNÁNDEZ. They will follow up with Dr. Gonzáles for now and establish with pulmonary if cardiology feels it is necessary. Patient does not have hx of COPD/asthma/ILD. Tamar Collier LPN Allergies As of Date: 09/04/2025 Noted Allergy Reaction ACETAMINOPHEN 07/19/2024 14 - Other: See Comments OXYCODONE 07/19/2024 14 - Other: See Comments METFORMIN 12/12/2020 6 - Diarrhea Comments: Even low dose caused diarrhea OXYCODONE-ACETAMINOPHEN 09/08/2023 16 - Unknown Date Reviewed: 08/29/2025 Reviewed by: Bassem Singh MA - Fully Assessed Reason for Visit: New Patient [172] Orders [681] Prescriptions as of 09/05/2025 - apixaban (ELIQUIS) 5 mg tab(s) Take 1 tablet by mouth two times a day. Patient should start on August 10, 2025. - BYDUREON BCISE 2 mg/0.85 mL injection [...] 5 mg by mouth once daily. - aluminum-magnesium hydroxide-simethicone (MAALOX,MYLANTA,MAG-AL PLUS) 200-200-20 mg/5 [...] by mouth two times a day. - GLUCAGON EMERGENCY KIT, HUMAN, INJECTION Inject 1 mL subcutaneously as needed. - Sennosides 8.6 mg cap Take 17.2 mg by mouth daily at bedtime. - traMADol (ULTRAM) 50 mg tablet Take 50 mg by mouth every 6 hours as needed for pain. - ondansetron orally disintegrating (ZOFRAN ODT) 4 mg disintegrating tablet Take 1 tablet by mouth every 8 hours as needed for nausea/vomiting. - baclofen (LIORESAL) 20 mg tablet Take 20 mg by mouth three times a day. - bumetanide (BUMEX) 1 mg tablet Take 1 tablet by mouth once daily. - insulin glargine (BASAGLAR KWIKPEN U-100 INSULIN) 100 unit/mL (3 mL) Inject 27 Units subcutaneously daily at bedtime. Adjust dose as directed - carbidopa-levodopa (SINEMET 25-100) 25-100 mg per tablet Take 2 tablets by mouth three times a day. - bicalutamide (CASODEX) 50 mg tablet Take [...] once daily. Problem List As Of Date 09/04/2025 Noted Resolved Brain tumor (HCC) [D49.6] 12/31/2013 Atrial fibrillation status post cardioversion (*12/31/2013 Cerebral embolism with cerebral infar (more content not included)... Normal [facility] CNOVon 08-29-2025 CNOV Office Visit (GEN[facility] ) -- STEPH BAUMANN ([id number]) 1950 M Date Time Provider Department 08/29/25 3:10 PM EL ARNETT During your visit today, we recorded the following information about you: Temperature Pulse Blood pressure Weight 98.7 degrees 93/minute 145/112 78.9 kg Height 1.753 m Bassem Singh MA 08/29/2025 4:45 PM Signed What is the reason for your visit today? Post OP Who is your referring physician? Are you having poor oral intake? NO Have you had unintentional weight loss of 15 lbs/7 Kg in the last 3-6 months? NO Bowels: regular Wound: clean AND dry Temperature: No Drains: No Leonie Antoine MD 08/29/2025 4:45 PM Signed [facility] Abdominal [facility] - ESTABLISHED FOLLOW-UP Chief Complaint: post-op visit HPI: Steph Baumann is a 75 year old male with PMH of HTN, T2DM, ALBINO, cirrhosis and CHF who presents for follow-up three weeks after open right inguinal hernia repair with mesh on 08/07/25. He still has some pain in his right hip, but has gotten better since the surgery. Overall feels well. 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) Metabolic encephalopathy [...] SURGICAL HISTORY OF 10/2019 Placement of BiVICD SOCIAL HISTORY[1] Additional social history not relevant to the patient's HPI FAMILY HISTORY Problem Relation Age of Onset Diabetes Mother Coronary Artery Disease Mother Thyroid Mother thinks "over active" Diabetes Child daughter Additional family history not relevant to the patient's HPI ALLERGIES Allergen Reactions Acetaminophen Other: See Comments Oxycodone Other: See Comments Metformin Diarrhea Even low dose caused diarrhea Oxycodone-Acetamino* Unknown Current Outpatient Medications Medication Sig Dispense Refill apixaban (ELIQUIS) 5 mg tab(s) Take 1 tablet by mouth two times a day. Patient should start on August 10, 2025. 60 tablet 0 BYDUREON BCISE 2 mg/0.85 mL injection Inject 2 mg subcutaneously one time a week. diclofenac (VOLTAREN ARTHRITIS PAIN) 1 % topical gel Apply one application to right hip topically every 12 hours as needed for pain. denosumab (PROLIA) 60 mg/mL Injection to be administered once every 6 months 1 mL 1 lactulose 20 gram/30 mL solution Take 45 mL by mouth three times a day. lisinopril (ZESTRIL) 5 mg tablet Take 5 mg by mouth once daily. aluminum-magnesium hydroxide-simethicone (MAALOX,MYLANTA,MAG-AL PLUS) 200-200-20 mg/5 mL suspension Take 30 mL by mouth every 4 hours as needed. bisacodyl (DULCOLAX) 10 mg supp 10 mg by RECTAL route once daily as needed for constipation. sod (more content not included)... Normal [facility] PSA SerPl-ncon 08-21-2025 Prostate specific Ag [Mass/Vol] ng/mL Normal <2.60 [facility] Comment on above: Order Comment: Speci men Type: BLOOD SPECIMENOrdering Facility: [facility] Address: [address] [place] [address] Result Comment: Jajaa saray PSA test methodology used is the Electrochemiluminescence Immunoassay by [employer]. Total PSA values by differing methodologies cannot be interchanged. Performed By: #### 2 857-1 ####[facility] LABCLIA [id number] [place] [address] [place] CBC W/Diff, Automatedon 10-0 Absolute Lymph 0.65 X10 3/uL Low 0.83-4.51 [facility] Comment on above: Order Comment: 302.1 Performed By: #### L 503.5510 #### [facility] [address] [place], [address] Absolute Neut 4.9 X10 3/uL Normal 2.0-7.7 [facility] Comment on above: Order Comment: 302.1 Performed By: #### L 503.5510 #### [facility] [address] [place], [address] Basophils/100 WBC (Bld) 0.5 % Normal 0-1 [facility] Comment on above: Order Comment: 302.1 Performed By: #### L 503.5510 #### [facility] [address] [place], [address] Eosinophils/100 WBC (Bld) 5.5 % High 0-5 [facility] Comment on above: Order Comment: 302.1 Performed By: #### L 503.5510 #### [facility] [address] [place], [address] Erythrocyte distribution width (RBC) [Ratio] 14.1 % Normal 11.6-14.6 [facility] Comment on above: Order Comment: 302.1 Performed By: #### L 503.5510 #### [facility] [address] [place], [address] Hematocrit (Bld) [Volume fraction] 33.9 % Low 40-54 [facility] Comment on above: Order Comment: 302.1 Performed By: #### L 503.5510 #### [facility] [address] [place], [address] Hemoglobin (Bld) [Mass/Vol] 10.7 g/dL Low 13.0-16.5 [facility] Comment on above: Order Comment: 302.1 Performed By: #### L 503.5510 #### [facility] [address] [place], [address] IG% 1.500 High 0.0-0.9 [facility] Comment on above: Order Comment: 302.1 Result Comment: IG% - Immature Granulocytes (promyelocytes, myelocytes and metamyelocytes) > 1% indicates that a LEFT SHIFT is Present. Performed By: #### L 503.5510 #### [facility] [address] [place], [address] Lymphocytes/100 WBC (Bld) 9.9 % Low 19-41 [facility] Comment on above: Order Comment: 302.1 Performed By: #### L 503.5510 #### [facility] [address] [place], [address] MCH (RBC) [Entitic mass] 31.5 pg Normal 27.0-32.0 [facility] Comment on above: Order Comment: 302.1 Performed By: #### L 503.5510 #### [facility] [address] [place], [address] MCHC (RBC) [Mass/Vol] 31.6 g/dL Low 32-36 [facility] Comment on above: Order Comment: 302.1 Performed By: #### L 503.5510 #### [facility] [address] [place], [address] MCV (RBC) [Entitic vol] 99.7 fL High 80-94 [facility] Comment on above: Order Comment: 302.1 Performed By: #### L 503.5510 #### [facility] [address] [place], [address] Monocytes/100 WBC (Bld) 7.5 % Normal 0-10 [facility] Comment on above: Order Comment: 302.1 Performed By: #### L 503.5510 #### [facility] [address] [place], [address] Neutrophils/100 WBC (Bld) 75.1 % High 47-70 [facility] Comment on above: Order Comment: 302.1 Performed By: #### L 503.5510 #### [facility] [address] [place], [address] Nucleated RBC (Bld) [#/Vol] 0 10*3/uL Normal 0-5 [facility] Comment on above: Order Comment: 302.1 Performed By: #### L 503.5510 #### [facility] [address] [place], [address] Platelet mean volume (Bld) [Entitic vol] 11.5 fL Normal 6.2-12.0 [facility] Comment on above: Order Comment: 302.1 Performed By: #### L 503.5510 #### [facility] [address] [place], [address] Platelets (Bld) [#/Vol] 160 10*3/uL Normal 150-450 [facility] Comment on above: Order Comment: 302.1 Performed By: #### L 503.5510 #### [facility] [address] [place], [address] RBC (Bld) [#/Vol] 3.40 10*6/uL Low 4.6-6.2 [facility] Comment on above: Order Comment: 302.1 Performed By: #### L 503.5510 #### [facility] [address] [place], [address] RDW SD 51.6 fl High 35.1-43.9 [facility] Comment on above: Order Comment: 302.1 Performed By: #### L 503.5510 #### [facility] [address] [place], [address] WBC (Bld) [#/Vol] 6.6 10*3/uL Normal 4.4-11.0 [facility] Comment on above: Order Comment: 302.1 Performed By: #### L 503.5510 #### [facility] [address] [place], [address] Comprehensive Metabolic [facility] 08-13-2025 Albumin [Mass/Vol] 3.6 g/dL Normal 3.4-4.8 [facility] Comment on above: Order Comment: 302 Performed By: #### L 503.5510 #### [facility] [address] [place], [address] Albumin/Globulin [Mass ratio] 1.2 {ratio} Normal 0.9-2.4 [facility] Comment on above: Order Comment: 302 Performed By: #### L 503.5510 #### [facility] [address] [place], [address] ALK PHOS 62 U/L Normal 40-129 [facility] Comment on above: Order Comment: 302 Performed By: #### L 503.5510 #### [facility] [address] [place], [address] ALT [Catalytic activity/Vol] 13 U/L Normal <=46 [facility] Comment on above: Order Comment: 302 Performed By: #### L 503.5510 #### [facility] [address] [place], [address] AST [Catalytic activity/Vol] 18 U/L Normal <=37 [facility] Comment on above: Order Comment: 302 Performed By: #### L 503.5510 #### [facility] [address] [place], [address] Bilirubin [Mass/Vol] 0.37 mg/dL Normal 0.00-1.30 [facility] Comment on above: Order Comment: 302 Performed By: #### L 503.5510 #### [facility] [address] [place], [address] BUN/CRE 20.9 RATIO High 10-20 [facility] Comment on above: Order Comment: 302 Performed By: #### L 503.5510 #### [facility] [address] [place], [address] Calcium [Mass/Vol] 8.6 mg/dL Normal 7.6-11.0 [facility] Comment on above: Order Comment: 302 Performed By: #### L 503.5510 #### [facility] [address] [place], [address] Chloride [Moles/Vol] 106 mmol/L Normal 98-108 [facility] Comment on above: Order Comment: 302 Performed By: #### L 503.5510 #### [facility] [address] [place], [address] CO2 [Moles/Vol] 17.2 mmol/L Low 21.0-32.0 [facility] Comment on above: Order Comment: 302 Performed By: #### L 503.5510 #### [facility] [address] [place], [address] Creatinine [Mass/Vol] 0.98 mg/dL Normal 0.70-1.20 [facility] Comment on above: Order Comment: 302 Performed By: #### L 503.5510 #### [facility] [address] [place], [address] GAP 10 Normal 5-15 [facility] Comment on above: Order Comment: 302 Performed By: #### L 503.5510 #### [facility] [address] [place], [address] GFR/1.73 sq M.predicted among non-blacks MDRD (S/P/Bld) [Vol rate/Area] 81 mL/min/{1.73_m2} Normal >60 [facility] Comment on above: Order Comment: 302 Result Comment: mL/m in/1.73m2 CKD-EPI Creatinine Equation (2020) Performed By: #### L 503.5510 #### [facility] [address] [place], [address] Globulin (S) [Mass/Vol] 2.9 g/dL Normal 2.2-4.2 [facility] Comment on above: Order Comment: 302 Performed By: #### L 503.5510 #### [facility] [address] [place], [address] Glucose [Mass/Vol] 121 mg/dL High 70-99 [facility] Comment on above: Order Comment: 302 Performed By: #### L 503.5510 #### [facility] [address] [place], [address] Potassium [Moles/Vol] 4.2 mmol/L Normal 3.3-5.1 [facility] Comment on above: Order Comment: 302 Performed By: #### L 503.5510 #### [facility] [address] [place], [address] Sodium [Moles/Vol] 133 mmol/L Normal 133-145 [facility] Comment on above: Order Comment: 302 Performed By: #### L 503.5510 #### [facility] [address] [place], [address] T PROT 6.5 g/dL Normal 5.9-8.4 [facility] Comment on above: Order Comment: 302 Performed By: #### L 503.5510 #### [facility] [address] [place], [address] Urea nitrogen [Mass/Vol] 21 mg/dL High 4-19 [facility] Comment on above: Order Comment: 302 Performed By: #### L 503.5510 #### [facility] [address] [place], [address] Magnesiumon 08-13-2025 Magnesium [Mass/Vol] 2.1 mg/dL Normal 1.5-2.2 [facility] Comment on above: Order Comment: 302 Performed By: #### L 503.5510 #### [facility] [address] [place], [address] Basic metabolic 2000 panelon 08-08-2025 Anion gap [Moles/Vol] 12 mmol/L Normal 8-15 [facility] Comment on above: Order Comment: Speci men Type: BLOOD SPECIMENOrdering Facility: [facility] Address: [address] [place] [address] Performed By: #### 2 4321-2, 2777-1, 75676-7, 1987- ####[facility] LABCLIA [id number] [address] [address] [place] Calcium [Mass/Vol] 8.4 mg/dL Low 8.5-10.2 [facility] Comment on above: Order Comment: Speci men Type: BLOOD SPECIMENOrdering Facility: [facility] Address: [address] [place], [place] [address] Performed By: #### 2 4321-2, 27705-07, , 1988-03 ####[facility] LABCLIA [id number] [address] [address] [place] Chloride [Moles/Vol] 106 mmol/L Normal 98-107 [facility] Comment on above: Order Comment: Speci men Type: BLOOD SPECIMENOrdering Facility: [facility] Address: [address] [place] [address] Performed By: #### 2 4321-2, 2776-11, , 1988-03 ####[facility] LABCLIA [id number] [place] [id number] [place] CO2 [Moles/Vol] 17 mmol/L Low 22-30 [facility] Comment on above: Order Comment: Speci men Type: BLOOD SPECIMENOrdering Facility: [facility] Address: [address] [place], [place] [address] Performed By: #### 2 4321-2, 27705-07, , 1988-03 ####[facility] LABCLIA [id number] [place] [id number] [place] Creatinine [Mass/Vol] 0.95 mg/dL Normal 0.73-1.22 [facility] Comment on above: Order Comment: Speci men Type: BLOOD SPECIMENOrdering Facility: [facility] Address: [address] [place] [address] Performed By: #### 2 4321-2, 27705-07, , 1988-03 ####[facility] LABCLIA [id number] [place] [id number] [place] eGFRcr SerPlBld CKD-EPI 2020 85 mL/min/1.73m??? Normal >=60 [facility] Comment on above: Order Comment: Ella rosenberg Type: BLOOD SPECIMENOrdering Facility: [facility] Address: [address] [place] [address] Result Comment: Rossy mated Glomerular Filtration Rate [...] accurately reflect actual GFR. Performed By: #### 2 4321-2, 7-, , 1988-03 ####[facility] LABCLIA [id number] [place] [id number] [place] Glucose [Mass/Vol] 96 mg/dL Normal 74-99 [facility] Comment on above: Order Comment: Ella rosenberg Type: BLOOD SPECIMENOrdering Facility: [facility] Address: [address] [place] [address] Result Comment: The [place] [employer] (ADA) provides guidance for cutoff [...] Standards of Medical Care in Diabetes 2016, [place] [employer]. Diabetes Care. 2016.39(Suppl 1). Performed By: #### 2 4321-2, 2777-1, , 1988-03 ####[facility] LABCLIA [id number] [address] [address] [place] Potassium [Moles/Vol] 4.3 mmol/L Normal 3.7-5.1 [facility] Comment on above: Order Comment: Speci men Type: BLOOD SPECIMENOrdering Facility: [facility] Address: [address] [place] [address] Performed By: #### 2 4321-2, 277-1, , 1988-03 ####[facility] LABCLIA [id number] [place] [address] [place] Sodium [Moles/Vol] 135 mmol/L Low 136-144 [facility] Comment on above: Order Comment: Speci men Type: BLOOD SPECIMENOrdering Facility: [facility] Address: [address] [place] [address] Performed By: #### 2 4321-2, 2776-, , 1988-03 ####[facility] LABIA [id number] [place] [address] [place] Urea nitrogen [Mass/Vol] 26 mg/dL High 9-24 [facility] Comment on above: Order Comment: Speci men Type: BLOOD SPECIMENOrdering Facility: [facility] Address: [address] [place] [address] Performed By: #### 2 4321-2, 277-, , 1988-03 ####[facility] LABCLIA [id number] [place] [address] [place] CBC W Auto Differential pane l (Bld)on 08-08-2025 Basophils (Bld) [#/Vol] 10*3/uL Normal <0.11 [facility] Comment on above: Order Comment: Speci men Type: BLOOD SPECIMENOrdering Facility: [facility] Address: [address] [place] [address] Performed By: #### 5 7021-8 ####[facility] LABIA [id number] [place] Basophils/100 WBC (Bld) 0.3 % Normal [facility] Comment on above: Order Comment: Speci men Type: BLOOD SPECIMENOrdering Facility: [facility] Address: [address] [place] [address] Performed By: #### 5 7021-8 ####[facility] LABCLIA [id number] [place] [address] [place] Differential cell count method Nom (Bld) Auto Normal [facility] Comment on above: Order Comment: Speci men Type: BLOOD SPECIMENOrdering Facility: [facility] Address: [address] [place] [address] Performed By: #### 5 7021-8 ####[facility] LABCLIA [id number] [place] [address] [place] Eosinophils (Bld) [#/Vol] 0.06 10*3/uL Normal <0.46 [facility] Comment on above: Order Comment: Speci men Type: BLOOD SPECIMENOrdering Facility: [facility] Address: [address] [place] [address] Performed By: #### 5 7021-8 ####[facility] LABCLIA [id number] [address] [place] Eosinophils/100 WBC (Bld) 0.8 % Normal [facility] Comment on above: Order Comment: Speci men Type: BLOOD SPECIMENOrdering Facility: [facility] Address: [address] [place] [address] Performed By: #### 5 7021-8 ####[facility] LABCLIA [id number] [place] [address] [place] Erythrocyte distribution width (RBC) [Ratio] 14.1 % Normal 11.5-15.0 [facility] Comment on above: Order Comment: Speci men Type: BLOOD SPECIMENOrdering Facility: [facility] Address: [address] [place] [address] Performed By: #### 5 7021-8 ####[facility] LABCLIA [id number] [place] [address] [place] Hematocrit (Bld) [Volume fraction] 35.3 % Low 39.0-51.0 [facility] Comment on above: Order Comment: Speci men Type: BLOOD SPECIMENOrdering Facility: [facility] Address: [address] [place] [address] Performed By: #### 5 7021-8 ####[facility] LABCLIA [id number] [place] [address] [place] Hemoglobin (Bld) [Mass/Vol] 11.3 g/dL Low 13.0-17.0 [facility] Comment on above: Order Comment: Speci men Type: BLOOD SPECIMENOrdering Facility: [facility] Address: [address] [place] [address] Performed By: #### 5 7021-8 ####[facility] LABCLIA [id number] [place] [address] [place] Immature granulocytes (Bld) [#/Vol] 0.03 10*3/uL Normal <0.10 [facility] Comment on above: Order Comment: Speci men Type: BLOOD SPECIMENOrdering Facility: [facility] Address: [address] [place] [address] Performed By: #### 5 7021-8 ####[facility] LABCLIA [id number] [place] [address] [place] Immature granulocytes/100 WBC (Bld) 0.4 % Normal [facility] Comment on above: Order Comment: Speci men Type: BLOOD SPECIMENOrdering Facility: [facility] Address: [address] [place] [address] Performed By: #### 5 7021-8 ####[facility] LABCLIA [id number] [place] [id number] [place] Lymphocytes (Bld) [#/Vol] 0.50 10*3/uL Low 1.00-4.00 [facility] Comment on above: Order Comment: Speci men Type: BLOOD SPECIMENOrdering Facility: [facility] Address: [address] [place] [address] Performed By: #### 5 7021-8 ####[facility] LABCLIA [id number] [place] [address] [place] Lymphocytes/100 WBC (Bld) 6.4 % Normal [facility] Comment on above: Order Comment: Speci men Type: BLOOD SPECIMENOrdering Facility: [facility] Address: [address] [place] [address] Performed By: #### 5 7021-8 ####[facility] LABIA [id number] [place] [address] [place] MCH (RBC) [Entitic mass] 32.5 pg Normal 26.0-34.0 [facility] Comment on above: Order Comment: Speci men Type: BLOOD SPECIMENOrdering Facility: [facility] Address: [address] [place] [address] Performed By: #### 5 7021-8 ####[facility] LABIA [id number] [address] [place] MCHC (RBC) [Mass/Vol] 32.0 g/dL Normal 30.5-36.0 [facility] Comment on above: Order Comment: Speci men Type: BLOOD SPECIMENOrdering Facility: [facility] Address: [address] [place] [address] Performed By: #### 5 7021-8 ####[facility] LABIA [id number] [place] [address] [place] MCV (RBC) [Entitic vol] 101.4 fL High 80.0-100.0 [facility] Comment on above: Order Comment: Speci men Type: BLOOD SPECIMENOrdering Facility: [facility] Address: [address] [place] [address] Performed By: #### 5 7021-8 ####[facility] LABCLIA [id number] [place] [address] [place] Monocytes (Bld) [#/Vol] 0.53 10*3/uL Normal <0.87 [facility] Comment on above: Order Comment: Speci men Type: BLOOD SPECIMENOrdering Facility: [facility] Address: [address] [place] [address] Performed By: #### 5 7021-8 ####[facility] LABCLIA [id number] [place] [address] [place] Monocytes/100 WBC (Bld) 6.7 % Normal [facility] Comment on above: Order Comment: Speci men Type: BLOOD SPECIMENOrdering Facility: [facility] Address: [address] [place] [address] Performed By: #### 5 7021-8 ####[facility] LABCLIA [id number] [place] [address] [place] Neutrophils (Bld) [#/Vol] 6.73 10*3/uL Normal 1.45-7.50 [facility] Comment on above: Order Comment: Speci men Type: BLOOD SPECIMENOrdering Facility: [facility] Address: [address] [place] [address] Performed By: #### 5 7021-8 ####[facility] LABCLIA [id number] [place] [id number] [place] Neutrophils/100 WBC (Bld) 85.4 % Normal [facility] Comment on above: Order Comment: Speci men Type: BLOOD SPECIMENOrdering Facility: [facility] Address: [address] [place] [address] Performed By: #### 5 7021-8 ####[facility] LABCLIA [id number] [place] [address] [place] Nucleated RBC (Bld) [#/Vol] 10*3/uL Normal <0.01 [facility] Comment on above: Order Comment: Speci men Type: BLOOD SPECIMENOrdering Facility: [facility] Address: [address] [place] [address] Performed By: #### 5 7021-8 ####[facility] LABIA [id number] [place] [address] [place] Nucleated RBC/100 WBC (Bld) [Ratio] 0.0 /100 WBC Normal [facility] Comment on above: Order Comment: Speci men Type: BLOOD SPECIMENOrdering Facility: [facility] Address: [address] [place] [address] Performed By: #### 5 7021-8 ####[facility] LABCLIA [id number] [place] [address] [place] Platelet mean volume (Bld) [Entitic vol] 11.8 fL Normal 9.0-12.7 [facility] Comment on above: Order Comment: Speci men Type: BLOOD SPECIMENOrdering Facility: [facility] Address: [address] [place] [address] Performed By: #### 5 7021-8 ####[facility] LABIA [id number] [place] [address] [place] Platelets (Bld) [#/Vol] 126 10*3/uL Low 150-400 [facility] Comment on above: Order Comment: Speci men Type: BLOOD SPECIMENOrdering Facility: [facility] Address: [address] [place] [address] Performed By: #### 5 7021-8 ####[facility] LABCLIA [id number] [place] [id number] [place] RBC (Bld) [#/Vol] 3.48 10*6/uL Low 4.20-6.00 [facility] Comment on above: Order Comment: Speci men Type: BLOOD SPECIMENOrdering Facility: [facility] Address: [address] [place] [address] Performed By: #### 5 7021-8 ####[facility] LABCLIA [id number] [place] [id number] [place] WBC (Bld) [#/Vol] 7.87 10*3/uL Normal 3.70-11.00 [facility] Comment on above: Order Comment: Speci men Type: BLOOD SPECIMENOrdering Facility: [facility] Address: [address] [place] [address] Performed By: #### 5 7021-8 ####[facility] LABCLIA [id number] [place] [id number] [facility] [place] CNDSon 08-08-2025 CNDS HNO ID: [id number] Author: EL ARNETT MD Service: General Surgery Author Type: Resident Type: Discharge Summary Filed: 08/08/2025 12:16 Note Text: -- Attestation signed by El Arnett MD at 08/08/2025 12:16 PM I have seen and evaluated the patient and discussed the case with my residents and physician extenders. I agree with the assessment and plan as documented in this note. -- DISCHARGE SUMMARY PATIENT NAME: Steph Baumann ADMISSION DATE: 08/07/2025 DISCHARGE DATE: 08/08/2025 ATTENDING PHYSICIAN: El Arnett MD Code Status: Not on file Highest Readmission Risk Score: 20 The 30 day readmissions risk score is derived from an internally validated risk model which evaluates patient level characteristics, utilization history, medication orders and lab results up until the day of discharge. Patients with a score of 39 or above are considered highest risk for readmission. Specific patient level drivers will be listed at the bottom of the summary. CONSULTING TEAMS DURING HOSPITALIZATION: None Treatment Team: Attending Provider: El Arnett MD Consulting: CHRISTY HAM REASON FOR HOSPITALIZATION: Right inguinal hernia FINAL DIAGNOSIS: Right inguinal hernia Active Hospital Problems Diagnosis POA Hernia Yes Resolved Hospital Problems No resolved problems to display. OPERATIONS DURING HOSPITALIZATION: Open right inguinal hernia repair with mesh PROCEDURES DURING HOSPITALIZATION: No procedures performed HOSPITAL COURSE: You presented to the hospital on August 07, 2025 for planned Open right inguinal hernia repair with mesh. The surgery was without complication and you tolerated the procedure well. Post-operatively you recovered in the PACU and then a regular nursing floor for the remainder of your post-operative care. You were started on IV pain medications and a clear liquid diet which was advanced as tolerated. You were transitioned to oral pain medication once you were tolerating your diet. When you were deemed medically stable and met criteria, you were discharged home. At the time of discharge, your pain was controlled, your vitals were stable and you were tolerating oral intake. Transitions of Care Critical Issues: N/A LABS AND PROCEDURES PENDING AT DISCHARGE: No pending results. PATIENT CONDITION AT DISCHARGE: Stable DISCHARGE DISPOSITION: Longterm Facility Discharge Physical Exam: VITAL SIGNS: BP 109/69 Pulse 70 Temp 36.4 ?C (97.5 ?F) (Axillary) Resp 15 Ht 175.3 cm (5' 9.02") Wt 78 kg (171 lb 15.3 oz) SpO2 100% BMI 25.38 kg/m? General: awake, in no acute distress, alert, oriented HEENT: normocephalic, atraumatic Pulm: non-labored breathing on 2L NC, no shortness of breath, bilateral chest wall rise Abdomen: soft, appropriately tender, nondistended, incision is clean, dry and intact. Neuro: no gross focal neurologic deficits Ext: warm and well perfused, no edema INFORMATION PROVIDED TO PATIENT: WOUND/SURGICAL SITE CARE: You have a clear, plastic skin glue over your incision. This will peel off on its own over the next 1-2 weeks. Your dressing is water resistant and you can shower tomorrow. Do not scrub at the area, but it is fine for soap and water to run over your incisions. No tub soaks, swimming, or hot tubs for 4 weeks or until your wounds have completely healed. DIET: You may resume your pre-hospital diet. Alcoholic beverages, in moderation, are acceptable, but should be avoided while using narcotics. ACTIVITY: Do not drive while taking narcotic pain medications. Before driving, sit in the helper/driver's seat and "road test" yourself. Be sure that you can operate the pedals and turn to check your blind spot without feeling limited by pain. If this feels good, you should be able to resume driving safely. Walking is encouraged and going up stairs is perfectly fine. In general, we recommend no lifting more than 10-15 lbs (weight of a milk jug) for the first 4 weeks after surgery. Listen to your body. If an activity hurts, you are doing too much, too early. Avoid that activity for a few days before trying it again. If you listen to your body and let discomfort be your guide, you can safely advance your activity as tolerated. ALLERGIES Allergen Reactions Acetaminophen Other: See Comments Oxycodone Other: See Comments Metformin Diarrhea Even low dose caused diarrhea Oxycodone-Acetamino* Unknown DISCHARGE MEDICATION: Medication List START taking these medications ondansetron 4 mg tablet Commonly known as: ZOFRAN Take 1 tablet by mouth every 12 hours as needed for nausea/vomiting for up to 5 days. CHANGE how you take these medications apixaban 5 mg tab(s) Commonly known as: ELIQUIS Take 1 tablet by mouth two t (more content not included)... Normal [facility] CRP SerPl-ncon 08-08-2025 CRP [Mass/Vol] 1.6 mg/dL High <0.9 [facility] Comment on above: Order Comment: Speci men Type: BLOOD SPECIMENOrdering Facility: [facility] Address: [address] [place] [address] Performed By: #### 2 4321-2, 2777-1, 35805-[address]-03 ####[facility] LABIA [id number] [address] [address] [place] Magnesium [facility]-ncon 08-08 Magnesium [Mass/Vol] 2.0 mg/dL Normal 1.7-2.3 [facility] Comment on above: Order Comment: Speci men Type: BLOOD SPECIMENOrdering Facility: [facility] Address: [address] [place] [address] Performed By: #### 2 4321-2, 277-1, , 1988-03 ####[facility] LABIA [id number] [place] [id number] [place] [facility]ate [place] [facility] Phosphate [Mass/Vol] 2.2 mg/dL Low 2.7-4.8 [facility] Comment on above: Order Comment: Speci men Type: BLOOD SPECIMENOrdering Facility: [facility] Address: [address] [place] [address] Performed By: #### 2 4321-2, 277-, , 1988-03 ####[facility] [id number] [place] [id number] [place] ANES POSTPROC EVALon 025 ANES POSTPROC EVAL HNO ID: [id number] Author: MADHURI MCBRIDE MD Service: ? Author Type: Anesthesiologist Type: Anesthesia Postprocedure Evaluation Filed: 08/07/2025 13:55 Note Text: POST ANESTHESIA EVALUATION NOTE : 1950 Procedure Summary Date: 08/07/25 Room / Location: [address] [facility] Anesthesia Start: 1044 Anesthesia Stop: 1354 Procedure: HERNIORRHAPHY INGUINAL INITIAL HERNIA >5 YRS REDUCIBLE (ELECTIVE) (Right: Abdomen) Diagnosis: Preoperative examination Non-recurrent unilateral inguinal hernia without obstruction or gangrene (Preoperative examination [Z01.818]) (Non-recurrent unilateral inguinal hernia without obstruction or gangrene [K40.90]) Surgeons: El Arnett MD Responsible Provider: Madhuri Mcbride MD Anesthesia Type: general ASA Status: 4 Anesthesia Type: general Airway Type: ETT Last Vitals Vitals Value Taken Time Arterial BP 1 120/51 08/07/25 13:52 Temp 36 08/07/25 13:54 Pulse 69 08/07/25 13:52 Resp 19 08/07/25 13:52 SpO2 100 % 08/07/25 13:52 Vitals shown include unfiled device data. Post Anesthesia Patient Status Patient Evaluation: bedside. Anticipated Disposition: inpatient floor planned admission. Neurological Status: aware and responsive. Pulmonary Status: breathing comfortably on supplemental oxygen Airway Control: returned to baseline unsupported. Cardiovascular Status: stable. Pain Management: clinically adequate Postoperative Hydration: acceptable. Intraoperative Events: no significant anesthesia events Post Operative Nausea/Vomiting Status: no significant post operative nausea or vomiting Recommendation: continue current plan of care. Anesthesia Observations No notable events were associated with this procedure. Documented by Toby Peters SRNA 08/07/2025 1:35 PM EDT SIGNATURE: Madhuri Mcbride MD PATIENT NAME: Steph Baumann DATE: August 07, 2025 TIME: 1:54 PM CSN: [id number] Normal [facility] ANES PRE-OPon 08-07-2025 ANES PRE-OP HNO ID: [id number] Author: MADHURI MCBRIDE MD Service: ? Author Type: Anesthesiologist Type: Anesthesia Preprocedure Evaluation Filed: 08/07/2025 09:30 Note Text: ANESTHESIOLOGY DAY OF SURGERY NOTE : 1950 Procedure Information Date/Time: 08/07/25 1115 Procedure: HERNIORRHAPHY INGUINAL INITIAL HERNIA >5 YRS REDUCIBLE (ELECTIVE) (Right) Location: [facility] Surgeons: El Arnett MD Estimated body mass index is 25.4 kg/m? as calculated from the following: Height as of 07/17/25: 175.3 cm (5' 9"). Weight as of 07/30/25: 78 kg (172 lb). Most recent hematocrit and potassium results: Hematocrit 38.2 07/30/2025 Potassium 4.3 07/30/2025 Relevant Problems ANESTHESIA (+) ALBINO (obstructive sleep apnea) (+) Sleep apnea CARDIO (+) Atrial fibrillation status post cardioversion (HCC) (+) Essential hypertension, benign (+) Hypertensive heart disease with chronic diastolic congestive heart failure (HCC) (+) Peripheral arterial disease (+) Pulmonary hypertension, secondary (+) Typical atrial flutter (HCC) ENDO (+) Type 2 diabetes mellitus with hypercholesterolemia (HCC) GI (+) Esophageal reflux -RENAL (+) Chronic renal failure, stage 2 (mild) (+) Cirrhosis of liver with ascites (HCC) NEURO-PSYCH (+) Cerebral embolism with cerebral infarction (HCC) (+) Post traumatic seizures (HCC) (+) Seizure disorder (HCC) PULMONARY (+) Mild intermittent asthma without complication (HCC) (+) ALBINO (obstructive sleep apnea) (+) Sleep apnea I - PHYSICAL EVALUATION AIRWAY Patient intubated: No. Tracheostomy tube not present Mallampati: III. TM distance: >3 FB. Neck ROM: full ROM without neurological symptoms. Mouth opening: >3 FB. Short neck: no. Thick neck: no Howard present: no DENTAL Dental findings: teeth intact. II - ANESTHESIA PLAN ASA Score: 4 Anesthetic Plan: general Airway type: ETT Monitoring Plan Monitoring plan: invasive hemodynamic monitoring. Monitoring method: arterial Line Post Procedure Analgesic Plan Postoperative analgesic plan: multimodal analgesia. Informed Consent Anesthetic risks, benefits, alternatives, personnel and consent discussed: yes. Patient / Responsible Republican agrees to proceed: yes Patient / Surrogate agrees to blood products: Yes No vitals data found for the desired time range. Facility-Administered Medications as of 08/07/2025 Medication Dose Route Frequency heparin 5,000 Units injection 5,000 Units SUBCUTANEOUS ONCE lidocaine (PF) 10 mg/mL (1 %) 1-2 mg injection (XYLOCAINE) 0.1-0.2 mL INTRADERMAL PRN Or lidocaine 1% 0.25 mL subcutaneous j-tip syringe (XYLOCAINE) 0.25 mL SUBCUTANEOUS PRN lactated ringers iv infusion 5-30 mL/hr INTRAVENOUS CONTINUOUS NaCl 0.9% iv flush bag 20 mL INTRAVENOUS PRN ceFAZolin 2 g in dextrose (iso-osmotic) 50 mL (ANCEF,KEFZOL) 2 g INTRAVENOUS Pre-Op Once Outpatient Medications as of 08/07/2025 Medication Sig BYDUREON BCISE 2 mg/0.85 mL [...] every 6 hours as needed for pain. ondansetron orally disintegrating (ZOFRAN ODT) 4 mg disintegrating tablet Take 1 tablet by mouth every 8 hours as needed for nausea/vomiting. baclofen (LIORESAL) 20 mg tablet Take 20 mg by mouth thr (more content not included)... Normal [facility] BRIEF OP NOTon 08-07-2025 BRIEF OP NOT HNO ID: [id number] Author: EMA RAMAN MD Service: General Surgery Author Type: Fellow Type: Brief Op Note Filed: 08/07/2025 13:07 Note Text: BRIEF OPERATIVE / PROCEDURE NOTE LOG ID: [id number] SURGERY/PROCEDURE DATE: 08/07/2025 INCISION/PROCEDURE START TIME: 11:52 AM INCISION CLOSE/PROCEDURE END TIME: SURGEON(S)/PROCEDURALIST(S ) AND FLUE GAS ANALYST(S): Surgeons and Role: * El Arnett MD - Primary * Ema Raman MD - Fellow No Additional Staff SURGERY/PROCEDURE(S): Open right inguinal hernia repair with mesh ANESTHESIA: General FINDINGS: NYHUS 3b indiect inguinal hernia ESTIMATED BLOOD LOSS: 20 mls SPECIMENS: None CLOSURE TECHNIQUE: Primary PRE-OP/PRE-PROCEDURE DIAGNOSIS: Right inguinal hernia POST-OP/POST-PROCEDURE DIAGNOSIS: Same as Preop Patient was accompanied to the next level of care by a licensed practitioner from the surgical team pending completion of this brief op note (or operative note) SIGNATURE: Ema Raman MD PATIENT NAME: Steph Baumann DATE: August 07, 2025 TIME: 1:05 PM Normal [facility] OPERATIVE NOon 08-07-2025 OPERATIVE NO HNO ID: [id number] Author: EL ARNETT MD Service: General Surgery Author Type: Physician Type: Operative Report Filed: 08/09/2025 12:07 Note Text: OPERATIVE/PROCEDURE REPORT LOG ID: [id number] Surgery/Procedure Date: 08/07/2025 Incision/Procedure Start Time: 11:52 AM Incision Close/Procedure End Time: 13:07PM Surgeon(s)/Proceduralist(s ) and Kiln Feeder(s): Surgeons and Role: * El Arnett MD - Primary * Ema Raman MD - Fellow No Additional Staff Please note, there was no available qualified resident. Dr. Raman was my client account assistant given the complexity of the hernia sac dissection. Procedure(s): 1. Open RIGHT inguinal hernia repair with mesh Anesthesia: General Pre-Op/Pre-Procedure Diagnosis: right inguinal hernia Post-Op/Post-Procedure Diagnosis: right inguinal hernia Operative Findings: - right indirect inguinal hernia Operative Indication: Steph Baumann is a 75 year old male who presents with a symptomatic right inguinal hernia. Current symptoms include pain and a bulge. We discussed the risks, benefits, alternatives, and potential complications, and the patient agreed to proceed with open mesh repair. Procedure Details: After brining the patient to the operating room a preoperative safety huddle was performed answering all patient and staff questions/concerns. Plans for appropriate VTE and antibiotic prophylaxis were confirmed. After general endotracheal anesthesia was administered and the patient was then appropriately positioned with padding and safety belts. Next, the abdomen was prepped and draped in the usual sterile fashion. Finally, a time out was performed before incision. We started with a right groin incision, dissecting down to the external oblique and dividing that muscle to expose the inguinal canal and open the external ring. We dissected the cord from the shelving edge of the inguinal ligament, identified Coopers ligament then the cord from the conjoined tendon, placing a sudhakar around the cord. We next the cord structures from the hernia sac which was emanating from the indirect space. We got into the sac and opened it before reducing the hernia contents which was a dilated cecum and small bowel. Once this was safely reduced we dissected the sac off the cord, closed the stump with a running/locking 2-0 stitch and then closed the floor with a running 2-0 vicryl as well. The ilioinguinal nerve was left in situ as well as the cremastics. We then fixed a piece of heavy-weight polypropylene mesh to Coopers ligament, running it next along the shelving edge of the inguinal ligament with 0 prolene suture. We then secured the superior portion to the conjoined tendon with interrupted Liquifix and then fashioned tails around the cord structures to recreate the internal ring again with interrupted 0 prolene suture. Hemostasis was confirmed and we closed the external oblique over the repair and then closed the subcutaneous tissue and skin in two layers using 3-0 vicryl and 4-0 monocryl. The skin was anesthetized with 0.25% bupivacaine and an ilioinguinal nerve block was performed. All counts were correct. Skin glue was applied. Please note, Dr. El Arnett, the attending surgeon was present and scrubbed for the procedure. Estimated Blood Loss: 10 mls Specimens: none Implantable Devices: heavy-weight polypropylene mesh 12x8cm Drains: None Complications: None SIGNATURE: El Arnett MD PATIENT NAME: Steph Baumann DATE: August 07, 2025 TIME: 1:07 PM PAGER/CONTACT #: [phone] Admission Assessment Catheter Associated UTI: Does the patient have: an indwelling urinary catheter? Yes a positive urine culture? No s/s referable to the urinary tract? No Pressure Ulcer: One or more pressure Ulcer(s) present on admission? No Central Line Infections: Central Line present on admission? No Suspected Septicemia on admission? No Signs of exit site infection? None Glycemic Control: Does the patient have diabetic ketoacidosis? No Does the patient have nonketotic hypersomolar coma? No Is the patient in a hypoglycemic coma? No Normal [facility] Ammoniaon 08-06-2025 Ammonia (P) [Moles/Vol] 14.8 umol/L [facility] [facility] Comment on above: Order Comment: 302.1 Performed By: #### L [phone] #### [facility] [address] [place] [address], [address] Venous blood ammonia measure mentOrdered By: Elisa Narvaez on 08-06-2025 Ammonia (P) [Moles/Vol] 14.8 umol/L [facility] [address] [facility] ECHOon 07-31-2025 Echocardiography Echocardiography Rep ort: Transthoracic Echo [facility] J1-5 Date of service: 07/31/2025 10:39:17 AM BEAM [employer]ELDER Ordering physician: SKYLAR SEYMOUR Exam indication: Evaluation of known heart failure to guide therapy Technologist: Martín Cardoso and sAhia Gibbs RDCS Fellow: Jered Anderson MD Interpreting physician: Dread Ta MD PATIENT: Name: MR. STEPH BAUMANN : 1950 Age: 75 years Gender: M History of hypertension, arrhythmia, dyslipidemia, diabetes mellitus, heart failure with hospitalization and myocardial infarction. Previous cardiovascular interventions: ICD implant (2019) Primary rhythm: RBBB. Secondary rhythm: PAC. Height: 175.00 cm BSA: 1.95 m Weight: 78.00 kg BMI: 25.5 kg/m Heart rate 75 bpm Blood pressure 87/52 mmHg Technically difficult exam due to suboptimal positioning and Pt in chair. Color Doppler was utilized to interrogate the cardiac valves assessed and spectral Doppler was utilized to determine the flow velocities and pressure gradients reported in this exam. Myocardial strain analysis was performed in this exam to aid in the assessment of cardiac function. MEASUREMENTS: Value Indexed Normal Max aortic dimension 3.3 cm Ao < 3.8 Left atrial volume 72 ml (Purdy's) 37 ml/m Ana <= 34 LV ID (diastole) 5.2 cm (2D) 2.67 cm/m LV ID (systole) 4.6 cm (2D) 2.36 cm/m IVS, leaflet tips 1.6 cm (2D) Posterior wall thickness 1.1 cm (2D) Left ventricular mass 294 g (2D) 151 g/m Global peak long strain -6.7 % LV stroke volume 55 ml (2D biplane) LV end diastolic volume 188 ml (2D biplane) 96.7 ml/m 34<=EDVi<75 LV end systolic volume 134 ml (2D biplane) 68.6 ml/m Ejection Fraction 29 % (2D biplane) EF > 52 FINDINGS: LEFT VENTRICLE The left ventricle is moderately dilated. Left ventricular systolic function is severely decreased. Global LV myocardial strain is abnormal. Grade III left ventricular diastolic dysfunction. Mitral annular lateral E/e': 8.7. Mitral annular septal E/e': 9.1. Wall Motion: The mid and distal anterior wall, mid and distal lateral wall, entire septum, entire apex, entire inferior wall, posterior wall, and mid anterolateral segment are severely hypokinetic. The basal anterolateral segment and basal anterior segment are mildly hypokinetic. RIGHT VENTRICLE The right ventricle is dilated. Pacer wires are noted in the right ventricle. Right ventricular systolic function is mildly decreased. RV systolic tissue Doppler velocity is 9.9 cm/s. Tricuspid annular displacement is 1.9 cm. Estimated right ventricular systolic pressure is 34 mmHg consistent with normal pulmonary artery pressures. Estimated right atrial pressure is 3 mmHg based on IVC assessment. LEFT ATRIUM The left atrial cavity is mildly dilated. Pulmonary Veins: The pulmonary venous pattern showed normal systolic flow. RIGHT ATRIUM The right atrial cavity is severely dilated (RA area = 30.1 cm ). Pacer wires are noted in the right atrium. Inferior Vena Cava: The inferior vena cava appears normal measuring 1.60 cm. The vessel decreases greater than 50 percent with inspiration. MITRAL VALVE There is mild (1+ - 2+) mitral valve regurgitation. There is mild thickening. The pressure half time is 51 msec. The peak mitral E/A ratio is 2.38. The average mitral E/e' ratio is 8.9. The mitral flow deceleration time is 177 msec. TRICUSPID VALVE The tricuspid valve leaflets are structurally normal. There is mild (1+) tricuspid valve regurgitation. AORTIC VALVE There is no aortic valve regurgitation. Tricuspid aortic valve. There is mild thickening. PULMONIC VALVE The pulmonic valve cusps are structurally normal. There is trace (trace - 1+) pulmonic valve regurgitation. AORTA The visualized aorta is normal in size. Measurements - Sinus: 3.3 cm. Mid ascending aorta 3.4 cm. PULMONARY ARTERIES The pulmonary arteries are normal. INTERATRIAL SEPTUM There is no evidence of intracardiac shunting as detected by Doppler. INTERVENTRICULAR SEPTUM There is no flow through the interventricular septum as detected by Doppler. PERICARDIUM There is no pericardial effusion. There is an epicardial fat pad. CONCLUSIONS: - Technically difficult exam due to suboptimal positioning and Pt in chair. - Exam indication: Evaluation of known heart failure to guide therapy - The left ventricle is moderately dilated. Left ventricular systolic function is severely decreased. EF = 29 5% (2D biplane) Grade III left ventricular diastolic dysfunction. - The right ventricle is dilated. Right ventricular systolic function is mildly decreased. - The left atrial cavity is mildly dilated. - The right atrial cavity is severely dilated. - Estimated right ventricular systolic pressure is 34 mmHg consistent with normal pulmonary artery pressures. Estimated right atrial pressure is 3 mmHg based on IVC assessment. (more content not included)... Normal [facility] CBC W Auto Differential pane l (Bld)on 07-30-2025 Basophils (Bld) [#/Vol] 0.03 10*3/uL Normal <0.11 [facility] Comment on above: Order Comment: Speci men Type: BLOOD SPECIMENOrdering Facility: [facility] Address: [address] [place] [address] Performed By: #### 5 7021-8 ####[facility] LABCLIA [id number] [place] [address] [place] Basophils/100 WBC (Bld) 0.4 % Normal [facility] Comment on above: Order Comment: Speci men Type: BLOOD SPECIMENOrdering Facility: [facility] Address: [address] [place] [address] Performed By: #### 5 7021-8 ####[facility] LABCLIA [id number] [place] [address] [place] Differential cell count method Nom (Bld) Auto Normal [facility] Comment on above: Order Comment: Speci men Type: BLOOD SPECIMENOrdering Facility: [facility] Address: [address] [place] [address] Performed By: #### 5 7021-8 ####[facility] LABCLIA [id number] [place] [address] [place] Eosinophils (Bld) [#/Vol] 0.21 10*3/uL Normal <0.46 [facility] Comment on above: Order Comment: Speci men Type: BLOOD SPECIMENOrdering Facility: [facility] Address: [address] [place] [address] Performed By: #### 5 7021-8 ####[facility] LABCLIA [id number] [address] [place] Eosinophils/100 WBC (Bld) 3.0 % Normal [facility] Comment on above: Order Comment: Speci men Type: BLOOD SPECIMENOrdering Facility: [facility] Address: [address] [place] [address] Performed By: #### 5 7021-8 ####[facility] LABCLIA [id number] [place] [address] [place] Erythrocyte distribution width (RBC) [Ratio] 14.5 % Normal 11.5-15.0 [facility] Comment on above: Order Comment: Speci men Type: BLOOD SPECIMENOrdering Facility: [facility] Address: [address] [place] [address] Performed By: #### 5 7021-8 ####[facility] LABCLIA [id number] [place] [address] [place] Hematocrit (Bld) [Volume fraction] 38.2 % Low 39.0-51.0 [facility] Comment on above: Order Comment: Speci men Type: BLOOD SPECIMENOrdering Facility: [facility] Address: [address] [place] [address] Performed By: #### 5 7021-8 ####[facility] LABIA [id number] [place] [address] [place] Hemoglobin (Bld) [Mass/Vol] 12.3 g/dL Low 13.0-17.0 [facility] Comment on above: Order Comment: Speci men Type: BLOOD SPECIMENOrdering Facility: [facility] Address: [address] [place] [address] Performed By: #### 5 7021-8 ####[facility] LABIA [id number] [place] [address] [place] Immature granulocytes (Bld) [#/Vol] 0.06 10*3/uL Normal <0.10 [facility] Comment on above: Order Comment: Speci men Type: BLOOD SPECIMENOrdering Facility: [facility] Address: [address] [place] [address] Performed By: #### 5 7021-8 ####[facility] LABCLIA [id number] [place] [address] [place] Immature granulocytes/100 WBC (Bld) 0.9 % Normal [facility] Comment on above: Order Comment: Speci men Type: BLOOD SPECIMENOrdering Facility: [facility] Address: [address] [place] [address] Performed By: #### 5 7021-8 ####[facility] LABCLIA [id number] [place] [address] [place] Lymphocytes (Bld) [#/Vol] 0.51 10*3/uL Low 1.00-4.00 [facility] Comment on above: Order Comment: Speci men Type: BLOOD SPECIMENOrdering Facility: [facility] Address: [address] [place] [address] Performed By: #### 5 7021-8 ####[facility] LABCLIA [id number] [address] [place] Lymphocytes/100 WBC (Bld) 7.3 % Normal [facility] Comment on above: Order Comment: Speci men Type: BLOOD SPECIMENOrdering Facility: [facility] Address: [address] [place] [address] Performed By: #### 5 7021-8 ####[facility] LABIA [id number] [place] [address] [place] MCH (RBC) [Entitic mass] 32.2 pg Normal 26.0-34.0 [facility] Comment on above: Order Comment: Speci men Type: BLOOD SPECIMENOrdering Facility: [facility] Address: [address] [place] [address] Performed By: #### 5 7021-8 ####[facility] LABCLIA [id number] [place] [address] [place] MCHC (RBC) [Mass/Vol] 32.2 g/dL Normal 30.5-36.0 [facility] Comment on above: Order Comment: Speci men Type: BLOOD SPECIMENOrdering Facility: [facility] Address: [address] [place] [address] Performed By: #### 5 7021-8 ####[facility] LABCLIA [id number] [place] [address] [place] MCV (RBC) [Entitic vol] 100.0 fL Normal 80.0-100.0 [facility] Comment on above: Order Comment: Speci men Type: BLOOD SPECIMENOrdering Facility: [facility] Address: [address] [place] [address] Performed By: #### 5 7021-8 ####[facility] LABCLIA [id number] [place] [id number] [place] Monocytes (Bld) [#/Vol] 0.44 10*3/uL Normal <0.87 [facility] Comment on above: Order Comment: Speci men Type: BLOOD SPECIMENOrdering Facility: [facility] Address: [address] [place] [address] Performed By: #### 5 7021-8 ####[facility] LABCLIA [id number] [place] [address] [place] Monocytes/100 WBC (Bld) 6.3 % Normal [facility] Comment on above: Order Comment: Speci men Type: BLOOD SPECIMENOrdering Facility: [facility] Address: [address] [place] [address] Performed By: #### 5 7021-8 ####[facility] LABCLIA [id number] [place] [address] [place] Neutrophils (Bld) [#/Vol] 5.71 10*3/uL Normal 1.45-7.50 [facility] Comment on above: Order Comment: Speci men Type: BLOOD SPECIMENOrdering Facility: [facility] Address: [address] [place] [address] Performed By: #### 5 7021-8 ####[facility] LABCLIA [id number] [place] [id number] [place] Neutrophils/100 WBC (Bld) 82.1 % Normal [facility] Comment on above: Order Comment: Speci men Type: BLOOD SPECIMENOrdering Facility: [facility] Address: [address] [place] [address] Performed By: #### 5 7021-8 ####[facility] LABCLIA [id number] [place] [address] [place] Nucleated RBC (Bld) [#/Vol] 10*3/uL Normal <0.01 [facility] Comment on above: Order Comment: Speci men Type: BLOOD SPECIMENOrdering Facility: [facility] Address: [address] [place] [address] Performed By: #### 5 7021-8 ####[facility] LABCLIA [id number] [place] [address] [place] Nucleated RBC/100 WBC (Bld) [Ratio] 0.0 /100 WBC Normal [facility] Comment on above: Order Comment: Speci men Type: BLOOD SPECIMENOrdering Facility: [facility] Address: [address] [place] [address] Performed By: #### 5 7021-8 ####[facility] LABCLIA [id number] [place] [address] [place] Platelet mean volume (Bld) [Entitic vol] 11.0 fL Normal 9.0-12.7 [facility] Comment on above: Order Comment: Speci men Type: BLOOD SPECIMENOrdering Facility: [facility] Address: [address] [place] [address] Performed By: #### 5 7021-8 ####[facility] LABCLIA [id number] [place] [address] [place] Platelets (Bld) [#/Vol] 150 10*3/uL Normal 150-400 [facility] Comment on above: Order Comment: Speci men Type: BLOOD SPECIMENOrdering Facility: [facility] Address: [address] [place] [address] Performed By: #### 5 7021-8 ####[facility] LABCLIA [id number] [place] [id number] [place] RBC (Bld) [#/Vol] 3.82 10*6/uL Low 4.20-6.00 [facility] Comment on above: Order Comment: Speci men Type: BLOOD SPECIMENOrdering Facility: [facility] Address: [address] [place] [address] Performed By: #### 5 7021-8 ####[facility] LABIA [id number] [place] [address] [place] WBC (Bld) [#/Vol] 6.96 10*3/uL Normal 3.70-11.00 [facility] Comment on above: Order Comment: Speci men Type: BLOOD SPECIMENOrdering Facility: [facility] Address: [address] [place] [address] Performed By: #### 5 7021-8 ####[facility] LABIA [id number] [address] [place] CNOVon 07-30-2025 CNOV Office Visit (PMNA11 ) -- PASTORSTEPH Connelly ([id number]) 1950 M Date Time Provider Department 07/30/25 1:30 PM BAKARI CHAUDHRY PMNA11 During your visit today, we recorded the following information about you: Temperature Pulse Respiration Blood pressure 96.3 degrees 64/minute 16/minute 84/58 Weight 78 kg Ady Vaca MD 07/30/2025 2:21 PM Addendum [facility] July 30, 2025 CC: I am seeing Steph Connelly Pastor in consultation at the request of Lupe Rushing for Pulmonary Hypertension. Summary of this visit and my recommendations will be relayed to the referring physician by way of electronic communication or by mail. PCP: Elisa Narvaez MD Referring Provider: Lupe Rushing HPI: Mr. Baumann is a 75 year old male with a PMH of Steph Baumann is a pleasant 69 year old male with PMHx significant for HTN, DMT2, ALBINO on CPAP, biventricular congestive heart failure (NICM) and planned to have a Biv ICD s/p 2018, AFIB on apixaban (followed at [facility]), prostate cancer s/p radiation therapy 2021, on hormone blockers who presents today for evaluation of pulmonary hypertension as part of a perioperative evaluation. Patient has worsening right inguinal hernia that has caused abdominal pain, nausea and emesis, along with urinary retention. This has required patient to obtain york catheter and be scheduled for routine hernia repair. Patient's surgeon would like to obtain preop evaluation in setting of suspected pulmonary hypertension noted on echocardiogram. Shortness of breath at rest:No Shortness of breath w/ exertion:N/A secondary to disability from Parkinson's Orthopnea:Non PND:No Edema:No Chest Pain:No Palpitations:No Dizziness/Lightheadedness: No Syncope:No Diet:Regular Regular Exercise: No ROS: Nausea, projectile vomiting and urinary retention secondary to hernia QUESTIONS SURROUNDING PULMONARY HYPERTENSION RISK: Prior diet pill use? No Prior use of amphetamines? No H/oDVT or PE?No Prior liver disease? No Prior HIV/Hepatitis B or C risk?No H/o splenectomy? No Prior thyroid disease? No Prior lung disease? No Family h/o PAH?No Snoring or witnessed apneas? ALBINO, on CPAP Arthralgias? Isolated right hip pain Skin rash or lesions? No Raynaud's symptoms? No PHYSICAL EXAM: VITALS: 07/30/25 1321 BP: 84/58 Pulse: 64 Resp: 16 Temp: (!) 35.7 ?C (96.3 ?F) TempSrc: Temporal SpO2: 97% Weight: 78 kg (172 lb) General appearance: Alert, NAD Neck: Supple neck. Midline trachea. Thyroid nontender and non-enlarged. JVD not present at incline Respiratory: Lungs clear to auscultation. No wheezing, rhonchi, rales. Diaphragmatic excursion and chest wall symmetry appear equal and normal. No accessory muscle use. Cardiovascular: RRR without gallop, or rubs. THere is no murmur. Non-displaced PMI. No parasternal heave. 1+ peripheral edema noted in the lower extremities L>R to mid tibia. Upper extremities appear Normal Normal temperature of all 4 extremities. Abdomen/GI: Abdomen soft, non-tender, non-distended. Right inguinal hernia Extremities: No clubbing or cyanosis of fingers. No cracking, pitting or petechiae on fingers. Musculoskeletal: Spine shows no kyphosis or scoliosis. Muscles show no clear abnormality. Skin:No petechiae, ecchymoses, rash noted. Neuro: Loss of motor function all 4 extremities, alert and responsive to commands TESTS/LABS: Labs: by EIA, Qual (no units) Date Value 02/14/2019 Negative by EIA (OD Ratio) Date Value 02/14/2019 0.7 Rheumatoid Factor No results found for: "RF" TSH TSH Date Value 05/09/2024 2.570 mIU/L 12/11/2020 3.360 uU/mL HIV HIV 12 Combo (Ag/Ab) (no units) Date Value 12/22/2023 Nonreactive ] Hepatitis B Surface Antigen HBsAg (no units) Date Value 02/14/2019 Negative Hepatitis C Hep C Antibody IA (no units) Date Value 12/22/2023 Negative 02/14/2019 Negative NT PRO BNP Lab Results Component Value Date PBNP 1,601 (H) 07/30/2025 Chemistries Lab Results Component Value Date NA 140 07/30/2025 NA 139 07/17/2025 NA 136 02/13/2025 K 4.3 07/30/2025 K 4.5 07/17/2025 K 4.1 02/13/2025 CHLOR 107 07/30/2025 CHLOR 107 07/17/2025 CHLOR 106 02/13/2025 CO2 20 (L) 07/30/2025 CO2 21 (L) 07/17/2025 CO2 22 02/13/2025 BUN 21 07/30/2025 BUN 19 07/17/2025 BUN 22 02/13/2025 CREAT 1.08 07/30/2025 CREAT 0.92 07/17/2025 CREAT 0.96 02/13/2025 EGFROTH 72 07/30/2025 EGFROTH 88 07/17/2025 EGFROTH 84 02/13/2025 GLUC 147 (H) 07/30/2025 GLUC 111 (H) 07/17/2025 GLUC 138 (H) 02/13/2025 ANION 13 07/30/2025 ANION 11 07/17/2025 ANION 8 02/13/2025 Liver Function Lab Results Component Value Date AST 9 (L) 07/30/2025 AST 12 (L) 07/17/2025 AST 15 02/13/2025 ALT <5 (L) 07/30/2025 ALT <5 (L) 07/17/2025 ALT 7 (L) 02/13/2025 (more content not included)... Normal [facility] Comprehensive metabolic 2000 panelon 07-30-2025 Albumin [Mass/Vol] 4.0 g/dL Normal 3.9-4.9 [facility] Comment on above: Order Comment: Speci men Type: BLOOD SPECIMENOrdering Facility: [facility] Address: [address] [place] [address] Performed By: #### 3 3762-6, 99613-7 ####[facility] LABIA [id number] [place] [address] [place] ALP [Catalytic activity/Vol] 62 U/L Normal 38-113 [facility] Comment on above: Order Comment: Speci men Type: BLOOD SPECIMENOrdering Facility: [facility] Address: [address] [place] [address] Performed By: #### 3 3762-6, 54167-3 ####[facility] LABIA [id number] [place] [address] [place] ALT [Catalytic activity/Vol] U/L Low 10-54 [facility] Comment on above: Order Comment: Speci men Type: BLOOD SPECIMENOrdering Facility: [facility] Address: [address] [place] [address] Performed By: #### 3 3762-6, 17393-3 ####[facility] LABCLIA [id number] [place] [id number] [place] Anion gap [Moles/Vol] 13 mmol/L Normal 8-15 [facility] Comment on above: Order Comment: Speci men Type: BLOOD SPECIMENOrdering Facility: [facility] Address: [address] [place], [place] [address] Performed By: #### 3 3762-6, 97861-5 ####[facility] LABIA [id number] [place] [id number] [place] AST [Catalytic activity/Vol] 9 U/L Low 14-40 [facility] Comment on above: Order Comment: Speci men Type: BLOOD SPECIMENOrdering Facility: [facility] Address: [address] [place] [address] Performed By: #### 3 3762-6, 42792-1 ####[facility] LABIA [id number] [place] [address] [place] Bilirubin [Mass/Vol] 0.4 mg/dL Normal 0.2-1.3 [facility] Comment on above: Order Comment: Speci men Type: BLOOD SPECIMENOrdering Facility: [facility] Address: [address] [place] [address] Performed By: #### 3 3762-6, ####[facility] LABIA [id number] [place] [address] [place] Calcium [Mass/Vol] 8.8 mg/dL Normal 8.5-10.2 [facility] Comment on above: Order Comment: Speci men Type: BLOOD SPECIMENOrdering Facility: [facility] Address: [address] [place] [address] Performed By: #### 3 3762-6, ####[facility] LABIA [id number] [place] [id number] [place] Chloride [Moles/Vol] 107 mmol/L Normal 98-107 [facility] Comment on above: Order Comment: Speci men Type: BLOOD SPECIMENOrdering Facility: [facility] Address: [address] [place], [place] [address] Performed By: #### 3 3762-6, ####[facility] LABCLIA [id number] [address] [address] [place] CO2 [Moles/Vol] 20 mmol/L Low 22-30 [facility] Comment on above: Order Comment: Speci men Type: BLOOD SPECIMENOrdering Facility: [facility] Address: [address] [place] [address] Performed By: #### 3 37612-13, ####[facility] LABIA [id number] [address] [address] [place] Creatinine [Mass/Vol] 1.08 mg/dL Normal 0.73-1.22 [facility] Comment on above: Order Comment: Speci men Type: BLOOD SPECIMENOrdering Facility: [facility] Address: [address] [place] [address] Performed By: #### 3 37612-13, ####[facility] LABIA [id number] [place] [id number] [place] eGFRcr SerPlBld CKD-EPI 2020 72 mL/min/1.73m??? Normal >=60 [facility] Comment on above: Order Comment: Speci men Type: BLOOD SPECIMENOrdering Facility: [facility] Address: [address] [place] [address] Result Comment: Rossy mated Glomerular Filtration Rate [...] accurately reflect actual GFR. Performed By: #### 3 376-6, ####[facility] LABCLIA [id number] [address] [address] [place] Glucose [Mass/Vol] 147 mg/dL High 74-99 [facility] Comment on above: Order Comment: Ella rosenberg Type: BLOOD SPECIMENOrdering Facility: [facility] Address: [address] [place] [address] Result Comment: The [place] Diabetes Association (ADA) provides guidance for cutoff [...] Standards of Medical Care in Diabetes 2016, [place] [employer]. Diabetes Care. 2016.39(Suppl 1). Performed By: #### 3 3762-6, 09906-0 ####[facility] LABCLIA [id number] [place] [address] [place] Potassium [Moles/Vol] 4.3 mmol/L Normal 3.7-5.1 [facility] Comment on above: Order Comment: Ella rosenberg Type: BLOOD SPECIMENOrdering Facility: [facility] Address: [address] [place] [address] Performed By: #### 3 3762-6, 01761-7 ####[facility] LABCLIA [id number] [place] [address] [place] Protein [Mass/Vol] 7.3 g/dL Normal 6.3-8.0 [facility] Comment on above: Order Comment: Ella rosenberg Type: BLOOD SPECIMENOrdering Facility: [facility] Address: [address] [place] [id number] Performed By: #### 3 3762-6, ####[facility] LABCLIA [id number] [place] [address] [place] Sodium [Moles/Vol] 140 mmol/L Normal 136-144 [facility] Comment on above: Order Comment: Speci men Type: BLOOD SPECIMENOrdering Facility: [facility] Address: [address] [place] [id number] Performed By: #### 3 3762-6, 55267-2 ####[facility] LABCLIA [id number] [address] [address] [place] Urea nitrogen [Mass/Vol] 21 mg/dL Normal 07-31 [facility] Comment on above: Order Comment: Speci men Type: BLOOD SPECIMENOrdering Facility: [facility] Address: [address] [place] [address] Performed By: #### 3 3762-6, 57020-6 ####[facility] LABCLIA [id number] [place] [id number] [place] LUNG DIFFUSION CAPACITY (SYED O)on 07-30-2025 LUNG DIFFUSION CAPACITY (DLCO) [address], [address] Test Date: 2025-07-30 Pat Name: STEPH BAUMANN Department: Room: Gender: Male Internal Investigator: : 1950 Requested By: Order Number: [id number] Reading MD: Gladys Bolivar MD Interpretive Statements FVC not repeatable. FEV1 repeatable X 3. Time to Peak Flow greater than ATS/ERS standard, FEV1 may not be valid. Current ATS/ERS acceptability and repeatability standards for DLCO met with 2 acceptable maneuvers. DLCO is hemoglobin corrected. Hemoglobin obtained from [facility] on 07/17/2025. Height given by patient. Pt wheelchair bound. Pt unable to extend arms for arm span. // LD IMPRESSION: Spirometry shows no obstruction. The reduced FVC suggests restriction. Recommend lung volumes if clinically indicated. The diffusing capacity (corrected for hemoglobin) is reduced. The kCO (DLCO/VA) reflects a normal transfer/diffusion of CO from the alveolar regions to the blood. Clinical correlation recommended. Electronically Signed On 07-31-2025 22:39:36 EDT by Gladys Bolivar MD ID: [id number] Name: STEPH BAUMANN Race: Black or Ht: 68.00 in Wt: 172.00 lbs Age: 75 Gender: Male : 1950 Dx: Pulmonary hypertension, unspecified Smoking Hx: Non-smoker Doctor: SKYLAR SEYMOUR Test Date: 07/30/2025 Site: [facility] Tech: Saida Covarrubias PRE-BRONCH POST-BRONCH Carol LLN Pred ULN %Pred ZScore Carol %Pred %Chg ZScore SPIROMETRY FVC 2.45 2.72 3.67 4.63 66 -2.13 FEV1 1.93 2.01 2.77 3.48 69 -1.83 FEV1/FVC 0.79 0.63 0.77 0.88 102 0.27 FEFMax 3.90 4.89 7.39 9.90 52 -2.29 FEF50 2.81 1.47 3.60 5.72 78 -0.61 FIF50 0.63 FEF50/FIF50 4.43 90-100 FIVC 0.29 WUQ54-35 1.65 0.65 1.91 3.83 86 -0.28 ExpiredTime 5.65 TimeToFEFMax 0.20 DARREN 0.07 VolExtrap% 3 LUNG DIFFUSION DLCOunc 16.39 17.52 23.95 31.63 68 -1.97 DLCOStdPB 16.16 17.52 23.95 31.63 67 -2.04 DLCORefHb 16.16 21.82 74 VA 4.01 4.79 5.96 7.22 67 -2.83 Kco 4.03 2.98 4.04 5.20 99 -0.02 Hgb 11.80 12-18 Comments: FVC not repeatable. FEV1 repeatable X 3. Time to Peak Flow greater than ATS/ERS standard, FEV1 may not be valid. Current ATS/ERS acceptability and repeatability standards for DLCO met with 2 acceptable maneuvers. DLCO is hemoglobin corrected. Hemoglobin obtained from [facility] on 07/17/2025. Height given by patient. Pt wheelchair bound. Pt unable to extend arms for arm span. // LD Normal [facility] NT-proBNP [facility] 07-30 Natriuretic peptide.B prohormone N-Terminal [Mass/Vol] 1601 pg/mL High <125 [facility] Comment on above: Order Comment: Speci men Type: BLOOD SPECIMENOrdering Facility: [facility] Address: [address] [place] [address] [place] [address] Performed By: #### 3 3762-6, 00216-7 ####[facility] LABCLIA [id number] [place] [address] [place] SPIROMETRY WITH DILATOR IF O BSTRUCTEDon 07-30-2025 SPIROMETRY WITH DILATOR IF OBSTRUCTED [facility] [id number] [place] [address], [place], [address] Test Date: 2025-07-30 Pat Name: STEPH BAUMANN Department: Room: Gender: Male 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 FEV1 repeatable X 3. Time to Peak Flow greater than ATS/ERS standard, FEV1 may not be valid. Current ATS/ERS acceptability and repeatability standards for DLCO met with 2 acceptable maneuvers. DLCO is hemoglobin corrected. Hemoglobin obtained from [facility] on 07/17/2025. Height given by patient. Pt wheelchair bound. Pt unable to extend arms for arm span. // LD IMPRESSION: Spirometry shows no obstruction. The reduced FVC suggests restriction. Recommend lung volumes if clinically indicated. The diffusing capacity (corrected for hemoglobin) is reduced. The kCO (DLCO/VA) reflects a normal transfer/diffusion of CO from the alveolar regions to the blood. Clinical correlation recommended. Electronically Signed On 07-31-2025 22:39:36 EDT by Gladys Bolivar MD ID: [id number] Name: STEPH BAUMANN Race: Black or Ht: 68.00 in Wt: 172.00 lbs Age: 75 Gender: Male : 1950 Dx: Pulmonary hypertension, unspecified Smoking Hx: Non-smoker Doctor: SKYLAR SEYMOUR Test Date: 07/30/2025 Site: [facility] Tech: Saida Covarrubias PRE-BRONCH POST-BRONCH Carol LLN Pred ULN %Pred ZScore Carol %Pred %Chg ZScore SPIROMETRY FVC 2.45 2.72 3.67 4.63 66 -2.13 FEV1 1.93 2.01 2.77 3.48 69 -1.83 FEV1/FVC 0.79 0.63 0.77 0.88 102 0.27 FEFMax 3.90 4.89 7.39 9.90 52 -2.29 FEF50 2.81 1.47 3.60 5.72 78 -0.61 FIF50 0.63 FEF50/FIF50 4.43 90-100 FIVC 0.29 QJT00-25 1.65 0.65 1.91 3.83 86 -0.28 ExpiredTime 5.65 TimeToFEFMax 0.20 DARREN 0.07 VolExtrap% 3 LUNG DIFFUSION DLCOunc 16.39 17.52 23.95 31.63 68 -1.97 DLCOStdPB 16.16 17.52 23.95 31.63 67 -2.04 DLCORefHb 16.16 21.82 74 VA 4.01 4.79 5.96 7.22 67 -2.83 Kco 4.03 2.98 4.04 5.20 99 -0.02 Hgb 11.80 12-18 Comments: FVC not repeatable. FEV1 repeatable X 3. Time to Peak Flow greater than ATS/ERS standard, FEV1 may not be valid. Current ATS/ERS acceptability and repeatability standards for DLCO met with 2 acceptable maneuvers. DLCO is hemoglobin corrected. Hemoglobin obtained from [facility] on 07/17/2025. Height given by patient. Pt wheelchair bound. Pt unable to extend arms for arm span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ml/min/mmHg DLCO_PRED (ML/MIN/MMHG) : 23.95 ml/min/mmHg DLCO_LLN(ML/MIN/MMHG) : 17.52 ml/min/mmHg DLCO_ULN (ML/MIN/MMHG) : 31.63 ml/min/mmHg FET_PRE (S) : 5.65 S VA (L) : 4.01 L VA_PRD (L) : 5.96 L DLCO/VA (ML/MIN/MMHG/L) : 0.04 ml/min/mmHg/L DLCO_VA_PRED (L) : 0.04 ml/min/mmHg/L DLCOCOR (ML/MIN/MMHG) : 16.16 ml/min/mmHg DLCOCOR_PRED (ML/MIN/MMHG) : 21.82 ml/min/mmHg DLCO/VACOR (ML/MIN/MMHG/L) : 0.04 ml/min/mmHg/L Normal [facility] XR CHEST 2V FRONTAL/LATon 09 -23-2025 XR CHEST 2V FRONTAL/LAT * * *Final Repor t* * * DATE OF EXAM: Jul 30 2025 11:24AM M2X [id number] - XR CHEST 2V FRONTAL/LAT / PROCEDURE REASON: Primary pulmonary hypertension (HCC) * * * * Physician Interpretation * * * * EXAMINATION: CHEST RADIOGRAPH (2 VIEW FRONTAL and LATERAL) CLINICAL HISTORY: Primary pulmonary hypertension (HCC) MQ: XC2_6 EXAM DATE/TIME: 07/30/2025 11:24 AM COMPARISON: 01/08/2021 RESULT: Lines, tubes, and devices: Left ICD device is in place, with leads in the right atrium, right ventricle and coronary sinus. Lungs and pleura: No consolidation is noted. No substantial pleural effusions or pneumothorax are noted. Cardiomediastinal silhouette: Cardiomediastinal silhouette is mildly enlarged. Calcification of the aortic arch is noted. Bones and soft tissues: Mild height loss of mid thoracic vertebral bodies is noted. IMPRESSION: No acute radiographic abnormality. Ruching Machine Operator: PSCB Transcribe Date/Time: Jul 30 2025 1:50P Dictated by : SHE PENALOZA MD This examination was interpreted and the report reviewed and electronically signed by: SHE PENALOZA MD on Jul 30 2025 1:51PM EST [id number] Normal [facility] -- STEPH BAUMANN ([id number]) 1950 M Date Time Provider Department 07/19/25 MERLIN LOREDO GASTA5 During your visit today, we recorded the following information about you: Luz Elena Snell 07/19/2025 8:57 AM Signed P.O.A called in Please call [phone] to discuss lab/test results Luz Elena Snell Technical Illustrator Mayra Hinton RN 07/19/2025 10:05 AM Signed Lab results and LIVUS result available for review LIVUS: IMPRESSION: Visualized liver is unremarkable except for stable subcentimeter echogenic lesion in the right lobe that is likely benign. Cholelithiasis. No biliary dilatation. Mayra Benton RN July 19, 2025 10:05 AM Merlin Loredo MD 07/19/2025 1:23 PM Signed Mayra, Please let him know: Official reading of US indicates the absence of ascites; no liver mass, and the presence of gallstones labs are excellent He is cleared for hernia repair from liver perspective. I look forward to seeing him in 6 months MD Chetan Walters Osas, RN 07/19/2025 2:05 PM Signed Patient updated Mayra Benton RN Allergies As of Date: 07/19/2025 Noted Allergy Reaction METFORMIN 12/12/2020 6 - Diarrhea Comments: Even low dose caused diarrhea OXYCODONE-ACETAMINOPHEN 09/08/2023 16 - Unknown Date Reviewed: 07/17/2025 Reviewed by: Yasmine Romero LPN - Fully Assessed Reason for Visit: Results [95] Prescriptions as of 07/19/2025 - BYDUREON BCISE 2 mg/0.85 mL injection [...] 5 mg by mouth once daily. - aluminum-magnesium hydroxide-simethicone (MAALOX,MYLANTA,MAG-AL PLUS) 200-200-20 mg/5 [...] by mouth two times a day. - GLUCAGON EMERGENCY KIT, HUMAN, INJECTION Inject 1 mL subcutaneously as needed. - Sennosides 8.6 mg cap Take 17.2 mg by mouth daily at bedtime. - traMADol (ULTRAM) 50 mg tablet Take 50 mg by mouth every 6 hours as needed for pain. - ondansetron orally disintegrating (ZOFRAN ODT) 4 [...] by mouth three times a day. - bicalutamide (CASODEX) 50 mg tablet Take [...] once daily. Problem List As Of Date 07/19/2025 Noted Resolved Brain tumor (HCC) [D49.6] 12/31/2013 Atrial fibrillation status post cardioversion (*12/31/2013 Cerebral embolism with cerebral infarction (HCC*12/31/2013 Uncontrolled type 2 diabetes mellitus without c*12/31/2013 10/07/2017 Impotence of organic origin [N52.9] 12/31/2013 Obesity, unspecified [E66.9 (more content not included)... Normal [facility] CBC W Auto Differential pane l (Bld)on 07-17-2025 Basophils (Bld) [#/Vol] 0.04 10*3/uL Normal <0.11 [facility] Comment on above: Order Comment: Speci men Type: BLOOD SPECIMENOrdering Facility: [facility] Address: [address] [place] [address] Performed By: #### 5 7021-8 ####[facility] LABIA [id number] [place] [address] [place] Basophils/100 WBC (Bld) 0.7 % Normal [facility] Comment on above: Order Comment: Speci men Type: BLOOD SPECIMENOrdering Facility: [facility] Address: [address] [place] [address] Performed By: #### 5 7021-8 ####[facility] LABCLIA [id number] [place] [address] [place] Differential cell count method Nom (Bld) Auto Normal [facility] Comment on above: Order Comment: Speci men Type: BLOOD SPECIMENOrdering Facility: [facility] Address: [address] [place] [address] Performed By: #### 5 7021-8 ####[facility] LABCLIA [id number] [address] [place] [address] [place] Eosinophils (Bld) [#/Vol] 0.28 10*3/uL Normal <0.46 [facility] Comment on above: Order Comment: Speci men Type: BLOOD SPECIMENOrdering Facility: [facility] Address: [address] [place] [address] Performed By: #### 5 7021-8 ####[facility] LABCLIA [id number] [address], [place] [address] [place] Eosinophils/100 WBC (Bld) 4.8 % Normal [facility] Comment on above: Order Comment: Speci men Type: BLOOD SPECIMENOrdering Facility: [facility] Address: [address] [place] [address] Performed By: #### 5 7021-8 ####[facility] LABCLIA [id number] [address], [place] [address] [place] Erythrocyte distribution width (RBC) [Ratio] 14.5 % Normal 11.5-15.0 [facility] Comment on above: Order Comment: Speci men Type: BLOOD SPECIMENOrdering Facility: [facility] Address: [address] [place] [address] Performed By: #### 5 7021-8 ####[facility] LABCLIA [id number] [address], [place] [address] [place] Hematocrit (Bld) [Volume fraction] 38.1 % Low 39.0-51.0 [facility] Comment on above: Order Comment: Speci men Type: BLOOD SPECIMENOrdering Facility: [facility] Address: [address] [place] [address] Performed By: #### 5 7021-8 ####[facility] LABCLIA [id number] [address], [facility] [place] Hemoglobin (Bld) [Mass/Vol] 11.8 g/dL Low 13.0-17.0 [facility] Comment on above: Order Comment: Speci men Type: BLOOD SPECIMENOrdering Facility: [facility] Address: [address] [place] [address] Performed By: #### 5 7021-8 ####[facility] LABCLIA [id number] [place] [address] [place] Immature granulocytes (Bld) [#/Vol] 0.06 10*3/uL Normal <0.10 [facility] Comment on above: Order Comment: Speci men Type: BLOOD SPECIMENOrdering Facility: [facility] Address: [address] [place] [address] Performed By: #### 5 7021-8 ####[facility] LABCLIA [id number] [place] [address] [place] Immature granulocytes/100 WBC (Bld) 1.0 % Normal [facility] Comment on above: Order Comment: Speci men Type: BLOOD SPECIMENOrdering Facility: [facility] Address: [address] [place] [address] Performed By: #### 5 7021-8 ####[facility] LABCLIA [id number] [place] [address] [place] Lymphocytes (Bld) [#/Vol] 0.51 10*3/uL Low 1.00-4.00 [facility] Comment on above: Order Comment: Speci men Type: BLOOD SPECIMENOrdering Facility: [facility] Address: [address] [place] [address] Performed By: #### 5 7021-8 ####[facility] LABCLIA [id number] [place] [address] [place] Lymphocytes/100 WBC (Bld) 8.7 % Normal [facility] Comment on above: Order Comment: Speci men Type: BLOOD SPECIMENOrdering Facility: [facility] Address: [address] [place] [address] Performed By: #### 5 7021-8 ####[facility] LABCLIA [id number] [place] [address] [place] MCH (RBC) [Entitic mass] 31.6 pg Normal 26.0-34.0 [facility] Comment on above: Order Comment: Speci men Type: BLOOD SPECIMENOrdering Facility: [facility] Address: [address] [place] [address] Performed By: #### 5 7021-8 ####[facility] LABIA [id number] [place] [address] [place] MCHC (RBC) [Mass/Vol] 31.0 g/dL Normal 30.5-36.0 [facility] Comment on above: Order Comment: Speci men Type: BLOOD SPECIMENOrdering Facility: [facility] Address: [address] [place] [address] Performed By: #### 5 7021-8 ####[facility] LABIA [id number] [place] [address] [place] MCV (RBC) [Entitic vol] 101.9 fL High 80.0-100.0 [facility] Comment on above: Order Comment: Speci men Type: BLOOD SPECIMENOrdering Facility: [facility] Address: [address] [place] [address] Performed By: #### 5 7021-8 ####[facility] [id number] [place] [address] [place] Monocytes (Bld) [#/Vol] 0.35 10*3/uL Normal <0.87 [facility] Comment on above: Order Comment: Speci men Type: BLOOD SPECIMENOrdering Facility: [facility] Address: [address] [place] [address] Performed By: #### 5 7021-8 ####[facility] LABIA [id number] [place] [address] [place] Monocytes/100 WBC (Bld) 6.0 % Normal [facility] Comment on above: Order Comment: Speci men Type: BLOOD SPECIMENOrdering Facility: [facility] Address: [address] [place] [address] Performed By: #### 5 7021-8 ####[facility] LABCLIA [id number] [place] [address] [place] Neutrophils (Bld) [#/Vol] 4.61 10*3/uL Normal 1.45-7.50 [facility] Comment on above: Order Comment: Speci men Type: BLOOD SPECIMENOrdering Facility: [facility] Address: [address] [place] [address] Performed By: #### 5 7021-8 ####[facility] LABCLIA [id number] [place] [address] [place] Neutrophils/100 WBC (Bld) 78.8 % Normal [facility] Comment on above: Order Comment: Speci men Type: BLOOD SPECIMENOrdering Facility: [facility] Address: [address] [place] [address] Performed By: #### 5 7021-8 ####[facility] LABCLIA [id number] [place] [address] [place] Nucleated RBC (Bld) [#/Vol] 10*3/uL Normal <0.01 [facility] Comment on above: Order Comment: Speci men Type: BLOOD SPECIMENOrdering Facility: [facility] Address: [address] [place] [address] Performed By: #### 5 7021-8 ####[facility] LABCLIA [id number] [place] [address] [place] Nucleated RBC/100 WBC (Bld) [Ratio] 0.0 /100 WBC Normal [facility] Comment on above: Order Comment: Speci men Type: BLOOD SPECIMENOrdering Facility: [facility] Address: [address] [place] [address] Performed By: #### 5 7021-8 ####[facility] LABCLIA [id number] [address] [place] [address] [place] Platelet mean volume (Bld) [Entitic vol] 11.5 fL Normal 9.0-12.7 [facility] Comment on above: Order Comment: Speci men Type: BLOOD SPECIMENOrdering Facility: [facility] Address: [address] [place] [address] Performed By: #### 5 7021-8 ####[facility] LABCLIA [id number] [facility] [address] [place] [address] [place] Platelets (Bld) [#/Vol] 158 10*3/uL Normal 150-400 [facility] Comment on above: Order Comment: Speci men Type: BLOOD SPECIMENOrdering Facility: [facility] Address: [address] [place] [address] Performed By: #### 5 7021-8 ####[facility] LABCLIA [id number] [address] [place] [address] [place] RBC (Bld) [#/Vol] 3.74 10*6/uL Low 4.20-6.00 [facility] Comment on above: Order Comment: Speci men Type: BLOOD SPECIMENOrdering Facility: [facility] Address: [address] [place] [address] Performed By: #### 5 7021-8 ####[facility] LABCLIA [id number] [address] [place] [address] [place] WBC (Bld) [#/Vol] 5.85 10*3/uL Normal 3.70-11.00 [facility] Comment on above: Order Comment: Speci men Type: BLOOD SPECIMENOrdering Facility: [facility] Address: [address] [place] [address] Performed By: #### 5 7021-8 ####[facility] LABCLIA [id number] [address] [place] [address] [place] CNOVon 07-17-2025 CNOV Office Visit (GASTA5 ) -- STEPH BAUMANN ([id number]) 1950 M Date Time Provider Department 07/17/25 10:55 AM MERLIN LOREDO GASTA5 During your visit today, we recorded the following information about you: Temperature Pulse Blood pressure Weight 97.2 degrees 66/minute 96/57 78 kg Height 1.753 m Merlin Loredo MD 07/17/2025 11:13 AM Addendum We discussed your liver health: - Your liver appears to have improved significantly. Your most recent FibroScan (1 year ago) showed 7.1 kilopascals, which is a marked improvement from prior results and strongly suggests the absence of cirrhosis.. The ultrasound from February 2023 showed no signs of cirrhosis or masses, and today?s preliminary ultrasound images also do not show any ascites (fluid in the abdominal cavity). We will confirm this with the radiologist?s official report. - Your INR (a marker of liver function) from today?s lab work is normal at 1.3. - We will continue to monitor your liver health with ultrasounds every 6 months to screen for liver cancer, as individuals with a history of cirrhosis remain at risk even if the cirrhosis resolves. We discussed your upcoming hernia surgery: - From a liver standpoint, you are cleared for surgery. I will document this in my note for Dr. Arnett. - I will also follow up with Dr. Arnett to ensure your medications, including water pills, are optimized before surgery. - Your February 2023 ultrasound showed no ascites, and today?s preliminary ultrasound images also do not show any fluid buildup, which is reassuring for your surgical team. We discussed your pulmonary hypertension and heart health: - Your pulmonary hypertension is being managed by Dr. Hopkins and your heart doctor. Please continue follow-up care with them as needed. - Your last echocardiogram (from last year) showed almost no tricuspid insufficiency, which is an improvement from prior findings. Follow-up plan: - Please schedule your next ultrasound and follow-up visit with me in 6 months. We will continue to monitor your liver health and ensure there are no new concerns. - If you have any questions or concerns about your upcoming surgery or other health issues, please reach out to me. Reminders: - Continue to avoid excess salt in your diet, as it can contribute to fluid retention and other health issues. - Let me know if you experience any new or worsening symptoms, such as abdominal swelling, jaundice, or changes in your overall health. Good luck with your hernia surgery, and I look forward to seeing you at your next visit. Merlin Loredo MD 07/18/2025 2:39 PM Signed The patient is a 75-year-old male with cirrhosis, ascites, biventricular CHF with tricuspid insufficiency, and pulmonary hypertension, presenting for follow-up. He is accompanied by his spouse, who provides additional history. He is scheduled for elective repair of a right groin hernia on 08/07, which recently began causing urinary obstruction, necessitating catheter placement. His spouse reports that the hernia is also believed to be contributing to significant right hip pain. She notes that he is voiding frequently with normal urine color, and denies any current abdominal distension or difficulty with urination. His pulmonary hypertension is being monitored by his family services coordinator. Diagnostics: (February 2025) CMP: Entirely normal (Today) - Ultrasound: No ascites observed (official report pending) - Laboratory tests: Prothrombin time 1.3 INR (normal) (April 2023) Ultrasound: Mild tricuspid insufficiency; estimated right ventricular systolic pressure 63 mmHg; improved hepatic appearance (February 2023) Ultrasound: Unremarkable liver, no mass, cholelithiasis, no ascites FibroScan (1 year ago): 7.1 kPa, CAP 277 Echocardiogram (last year): Almost no tricuspid insufficiency (2019) Serologic testing: No specific etiology for cirrhosis (2019) FibroScan: 31 kPa Exam: BP 96/57 (BP Site: Right Arm, BP Position: Sitting, BP Cuff Size: Regular Adult) Pulse 66 Temp 36.2 ?C (97.2 ?F) (Temporal) Ht 175.3 cm (5' 9") Wt 78 kg (172 lb) SpO2 97% BMI 25.40 kg/m? HEENT: neg abd: no ascites extrem: no edema neuro: no AMS Impression and Plan 1. Liver disease (K76.9) History of cirrhosis with prior ascites, now showing significant improvement. Most recent FibroScan (1 year ago) showed 7.1 kPa (previously 31 kPa in 2019). February ultrasound showed no cirrhosis or ascites; today's preliminary ultrasound also shows no ascites. INR is normal at 1.3. Low MELD (8) and Hawa Chopra score (A-5) - Continue routine surveillance ultrasounds every 6 months to monitor for hepatocellular carcinoma. - Follow-up in 6 months after next ultrasound and labs. Merlin Loredo MD He is cleared for planned hernia repair from liver perspective Merlin Loredo MD Referring Provider (more content not included)... Normal [facility] 07-17-2025 [facility] -- STEPH BAUMANN ([id number]) 1950 M Date Time Provider Department 07/17/25 LUPE RUSHING [facility] During your visit today, we recorded the following information about you: Lupe Rushing MD 07/17/2025 2:28 PM Signed Placed cardiology and pulm HTN consults- requested within a week. Thank you. Philippe Kim 07/25/2025 1:05 PM Signed Email sent to Cardiology leadership asking for assistance in getting a sooner appointment. Will wait to hear back. Allergies As of Date: 07/17/2025 Noted Allergy Reaction METFORMIN 12/12/2020 6 - Diarrhea Comments: Even low dose caused diarrhea OXYCODONE-ACETAMINOPHEN 09/08/2023 16 - Unknown Date Reviewed: 07/17/2025 Reviewed by: Yasmine Romero LPN - Fully Assessed Reason for Visit: PACC [Other] Cmt: Pre op appointments needed Prescriptions as of 07/25/2025 - BYDUREON BCISE 2 mg/0.85 mL injection [...] 5 mg by mouth once daily. - aluminum-magnesium hydroxide-simethicone (MAALOX,MYLANTA,MAG-AL PLUS) 200-200-20 mg/5 [...] by mouth two times a day. - GLUCAGON EMERGENCY KIT, HUMAN, INJECTION Inject 1 mL subcutaneously as needed. - Sennosides 8.6 mg cap Take 17.2 mg by mouth daily at bedtime. - traMADol (ULTRAM) 50 mg tablet Take 50 mg by mouth every 6 hours as needed for pain. - ondansetron orally disintegrating (ZOFRAN ODT) 4 [...] by mouth three times a day. - bicalutamide (CASODEX) 50 mg tablet Take [...] once daily. Problem List As Of Date 07/17/2025 Noted Resolved Brain tumor (HCC) [D49.6] 12/31/2013 [...] or unspecified type diabetes mellitus w*12/31/2013 04/05/2017 Preopera (more content not included)... Normal [facility] Comprehensive metabolic 2000 panelon 07-17-2025 Albumin [Mass/Vol] 3.7 g/dL Low 3.9-4.9 [facility] Comment on above: Order Comment: Speci men Type: BLOOD SPECIMENOrdering Facility: [facility] Address: [address] [place] [address] Performed By: #### 2 4323-8 ####[facility] LABCLIA [id number] [place] [address] [place] ALP [Catalytic activity/Vol] 61 U/L Normal 38-113 [facility] Comment on above: Order Comment: Speci men Type: BLOOD SPECIMENOrdering Facility: [facility] Address: [address] [place] [address] Performed By: #### 2 4323-8 ####[facility] LABCLIA [id number] [place] [address] [place] ALT [Catalytic activity/Vol] U/L Low 10-54 [facility] Comment on above: Order Comment: Speci men Type: BLOOD SPECIMENOrdering Facility: [facility] Address: [address] [place] [address] Result Comment: Resu lt rechecked. Performed By: #### 2 4323-8 ####[facility] LABCLIA [id number] [place] [id number] [place] Anion gap [Moles/Vol] 11 mmol/L Normal 8-15 [facility] Comment on above: Order Comment: Speci men Type: BLOOD SPECIMENOrdering Facility: [facility] Address: [address] [place] [address] Performed By: #### 2 4323-8 ####[facility] LABCLIA [id number] [address] [address] [place] AST [Catalytic activity/Vol] 12 U/L Low 14-40 [facility] Comment on above: Order Comment: Speci men Type: BLOOD SPECIMENOrdering Facility: [facility] Address: [address] [place] [address] Performed By: #### 2 4323-8 ####[facility] LABCLIA [id number] [place] [address] [place] Bilirubin [Mass/Vol] 0.3 mg/dL Normal 0.2-1.3 [facility] Comment on above: Order Comment: Speci men Type: BLOOD SPECIMENOrdering Facility: [facility] Address: [address] [place] [address] Performed By: #### 2 4323-8 ####[facility] LABCLIA [id number] [place] [address] [place] Calcium [Mass/Vol] 9.2 mg/dL Normal 8.5-10.2 [facility] Comment on above: Order Comment: Speci men Type: BLOOD SPECIMENOrdering Facility: [facility] Address: [address] [place] [address] Performed By: #### 2 4323-8 ####[facility] SYSTEM LABCLIA [id number] [place] [id number] [place] Chloride [Moles/Vol] 107 mmol/L Normal 98-107 [facility] Comment on above: Order Comment: Speci men Type: BLOOD SPECIMENOrdering Facility: [facility] Address: [address] [place], [place] [address] Performed By: #### 2 4323-8 ####[facility] LABCLIA [id number] [place] [id number] [place] CO2 [Moles/Vol] 21 mmol/L Low 22-30 [facility] Comment on above: Order Comment: Speci men Type: BLOOD SPECIMENOrdering Facility: [facility] Address: [address] [place] [id number] Performed By: #### 2 4323-8 ####[facility] LABIA [id number] [place] [id number] [place] Creatinine [Mass/Vol] 0.92 mg/dL Normal 0.73-1.22 [facility] Comment on above: Order Comment: Speci men Type: BLOOD SPECIMENOrdering Facility: [facility] Address: [address] [place] [address] Performed By: #### 2 4323-8 ####[facility] LABIA [id number] [place] [address] [place] eGFRcr SerPlBld CKD-EPI 2020 88 mL/min/1.73m??? Normal >=60 [facility] Comment on above: Order Comment: Speci men Type: BLOOD SPECIMENOrdering Facility: [facility] Address: [address] [place] [address] Result Comment: Rossy mated Glomerular Filtration Rate [...] accurately reflect actual GFR. Performed By: #### 2 4323-8 ####[facility] LABIA [id number] [place] [id number] [place] Glucose [Mass/Vol] 111 mg/dL High 74-99 [facility] Comment on above: Order Comment: Speci men Type: BLOOD SPECIMENOrdering Facility: [facility] Address: [address] [place] [address] Result Comment: The [place] Diabetes Association (ADA) provides guidance for cutoff [...] Standards of Medical Care in Diabetes 2016, [place] [employer] Association. Diabetes Care. 2016.39(Suppl 1). Performed By: #### 2 4323-8 ####[facility] LABCLIA [id number] [address] [address] [place] Potassium [Moles/Vol] 4.5 mmol/L Normal 3.7-5.1 [facility] Comment on above: Order Comment: Speci men Type: BLOOD SPECIMENOrdering Facility: [facility] Address: [address] [place] [address] Performed By: #### 2 4323-8 ####[facility] LABIA [id number] [place] [id number] [place] Protein [Mass/Vol] 6.8 g/dL Normal 6.3-8.0 [facility] Comment on above: Order Comment: Speci men Type: BLOOD SPECIMENOrdering Facility: [facility] Address: [address] [place] [address] Performed By: #### 2 4323-8 ####[facility] LABIA [id number] [place] [id number] [place] Sodium [Moles/Vol] 139 mmol/L Normal 136-144 [facility] Comment on above: Order Comment: Speci men Type: BLOOD SPECIMENOrdering Facility: [facility] Address: [address] [place] [address] Performed By: #### 2 4323-8 ####[facility] LABCLIA [id number] [address] [address] [place] Urea nitrogen [Mass/Vol] 19 mg/dL Normal 9-24 [facility] Comment on above: Order Comment: Speci men Type: BLOOD SPECIMENOrdering Facility: [facility] Address: [address] [place] [address] Performed By: #### 2 4323-8 ####[facility] LABCLIA [id number] [place] [address] [place] ECG COMPLETEon 07-17-2025 ECG COMPLETE Ventricular Rate : 7 0 BPM QRS Duration : 170 ms Q-T Interval : 468 ms QTC Calculation(Bazett) : 505 ms Calculated R Glover : 187 degrees Calculated T Glover : 17 degrees VENTRICULAR PACED RHYTHM ABNORMAL ECG Confirmed by SHERRY CROCKER MD ([id number]) on 08/14/2025 9:21:25 PM NAME : STEPH BAUMANN PID : [id number] : 1950 Gender : Male Race : ORD : [id number] Procedure Date : Jul 17 2025 13:19:52 Edit Date : Aug 14 2025 21:21:30 Diagnosis: VENTRICULAR PACED RHYTHM ABNORMAL ECG Confirmed by SHERRY CROCKER MD (57) on 08/14/2025 9:21:25 PM Test Reason : B/P WHEELCHAIR Location : 119 : A17 A17 Overread By : SHERRY CROCKER MD Edited By : SHERRY CROCKER MD Referred By : MERLIN LOREDO Acquired by : SHEREE HOGAN [facility] HISTORY PHYSICALon HISTORY PHYSICAL HNO ID: [id number] Author: LUPE RUSHING MD Service: ? Author Type: Physician Type: H&P Filed: 07/26/2025 17:08 Note Text: [facility] HISTORY AND PHYSICAL EXAMINATION SERVICE DATE: 07/17/2025 SERVICE TIME: 12:10 PM PRIMARY CARE PHYSICIAN: Elisa Narvaez MD Assessment Patient has the following medical conditions which may affect rosaura-operative course: # Wheelchair bound, cannot stand on legs, immobility, SNF resident # Afib- s/p cardioversion, on apixaban, taken off Carvedilol due to low HR in the 30s # CHF, non ischemic- EF 25 % in 2022 on Bumex and Acetazolamide, not on other GDMT but this is likely limited due to BP, today 95/58. BB stopped in February 2025 due to HR in 30s. Has ICD, gets cardiology care at [place], last ICD check last month per POA Has hx of severe pulm HTN back in 2018 with RV moderate dysfunction, this appears to have improved on most recent echo in 2022 showing mild RV systolic dysfunction and RVSP of 63 mm Hg. 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 Nevertheless, high risk with anesthesia given RVSP of 63 mm Hg. D/w anesthesia who recommended cardiology and pulm HTN consults, these have been placed. # CVA-- 2010- not on statin an Aspirin, see below # CAD/STEMI-- catheterization revealed 100% occlusion of the distal ramus with unsuccessful thrombectomy attempt. Per records, this was a new lesion from his previous catheterization in August that year. Is not on a statin or Aspirin, # ALBINO- on CPAP # Parkinson's- on sinemet # DM,- on Trulicity and Lantus 7 units HS, last A1C 8.1 in 2022 # HTN - on Lisinopril # Prostate cancer- follows with oncology- on ELigard, Denosumab and Bicalutamide # Meningioma- s/p resection # Prior c/f cirrhosis but this is unlikely per last 2 hepatology visits- labs are normal and liver stiffness has improved from 31 to 7 pkA. # Hyperparathyroidism- seen by endo, on Prolia RCRI of 4, high risk of major adverse cardiac events. Addendum: July 26, 2025 Patient will see pulmonary for pre-op on 07/30/25 Patient unable to get cardiology appt prior to OR D/w local [facility] Consultant Dr. Gonzáles over phone. Discussed possible med optimization. Patient not on statin due to elevated liver enzymes in the past. Patient not on Aspirin due to c/f bleeding when he was needing paracentesis while already on Apixaban. Unable to add GDMT due to borderline BP. Coreg was stopped due to low HR in February 2025. Cardiac optimization letter sent in by DR. Gonzáles and scanned into [employer]. D/w surgeon Dr. Arnett and c/f partial obstruction from large inguinal hernia due symptoms of intermittent vomiting and in case of strangulation/incarceratio n, emergent surgery would be more catastrophic. Called [facility] Bob Ferraro and updated regarding discussions above. Reiterated risks of major adverse cardiac events perioperatively including but no limited to [place], cardiac arrest and . She verbalized understanding and has had discussions with patient himself. All questions answered to the best of my ability, advised to call Dr. Arnett's office if she has more questions about ANESTHESIA FINDINGS: Intubation History: No history of difficult intubation Significant Anesthesia Considerations: has never had anesthesia Airway History: No history of difficult airway Day Activity Status Index: METS: Cannot walk indoors, such as around the house Cannot do light work around the house, such as dusting or washing dishes Cannot take care of self; that is eating, dressing, bathing, using the toilet Cannot walk a block or two on level ground Cannot do moderate work around the house, such as vacuuming, sweeping floors, or carrying in groceries Cannot do yardwork, such as raking leaves, weeding, or pushing a power mower Cannot have sexual relations Cannot climb a flight of stairs or walk up a hill Cannot participate in moderate recreational activites, such as golf, bowling, dancing, doubles tennis, or throwing a baseball or football Cannot participate in strenuous sport, such as swimming, singles tennis, football, basketball, or skiing Cannot do heavy work around the house, such as scrubbing floors, lifting or moving heavy furniture Cannot run a short distance DASI Score: 0 Patient is totally dependent. Clinical Frailty Scale: 7. Severely frail [id number] Score: Age: 65-74 Sex: male CHF history: Yes Hypertension history: Yes Stroke/TIA/thromboembolism history: Yes Vascular disease history: Yes Diabetes history: Yes [id number] Score: 7 ASA Class: 5 I - PHYSICAL EVALUATION AIRWAY Patient intubated: No. Tracheostomy tube not present Mallampati: III. TM distance: >3 FB. Neck ROM: full ROM without neurological symptoms. Mouth openin FB. Short neck: no. Thick neck: no Howard present: (more content not included)... Normal [facility] PT panel Coag (PPP)on 2024 INR Coag (PPP) [Relative time] 1.3 {INR} Normal 0.9-1.3 [facility] Comment on above: Order Comment: Ella rosenberg Type: BLOOD SPECIMENOrdering Facility: [facility] Address: [address] [place] [address] Result Comment: Dorothy min K Antagonist (VKA) Therapeutic Range: INR 2 to 3 (Target INR of 2.5) Note: For patients treated with VKA drugs, such as warfarin, the [place] [employer] 2012 Guideline recommends [...] Chest 2012, 141:7S-47S Pily RA, et al. [facility] 2017, 70: 252-289 Performed By: #### 3 4528-0, 92022-1 ####[facility] LABCLIA [id number] [place] [address] [place] PT Coag (PPP) [Time] 13.6 s High 9.7-13.0 [facility] Comment on above: Order Comment: Ella rosenberg Type: BLOOD SPECIMENOrdering Facility: [facility] Address: [address] [place] [address] Performed By: #### 3 4528-0, 67691-8 ####[facility] LABCLIA [id number] [place] [id number] [place] TYPE AND SCREEN,30 DAYon ABO O Normal [facility] Comment on above: Order Comment: Ella rosenberg Type: BLOOD SPECIMENOrdering Facility: [facility] Address: [address] [place] [address] Performed By: #### T SCR30 ####[facility] BLO[facility] BANKCLIA [id number] [address] [place] Rh Nom (Bld) Positive Normal [facility] Comment on above: Order Comment: Speci men Type: BLOOD SPECIMENOrdering Facility: [facility] Address: [address] [place] [address] Performed By: #### T SCR30 ####[facility] BLOOD BANKCLIA [id number] [place] [address] [place] US ABD RIGHT UPPER QUADRANTo n 07-17-2025 US ABD RIGHT UPPER QUADRANT * * *Final Report* * * DATE OF EXAM: Jul 17 2025 10:23AM TARA 1032 - US ABD RIGHT UPPER QUADRANT / PROCEDURE REASON: Liver disease * * * * Physician Interpretation * * * * EXAMINATION: RIGHT UPPER QUADRANT ULTRASOUND CLINICAL HISTORY: Liver disease TECHNIQUE: Sonography of the right upper quadrant was performed. Images were obtained and stored in a permanent archive. MQ: URUQ_2 COMPARISON: Ultrasound 02/13/2025 RESULT: Exam performed with patient in wheelchair/seated upright, somewhat limiting visualization of portions of the liver/abdomen. Pancreas: Obscured Liver: Portions of the left lobe are obscured. Echotexture: Normal, homogeneous. Echogenicity: Normal Surface contour: Smooth Lesions: Stable subcentimeter echogenic lesion in the right lobe, likely benign. Biliary: No intrahepatic biliary duct dilation. CBD: 0.5 cm at the hilum. Gallbladder: Only partially visualized. -Contents: Cholelithiasis -Wall: Normal -Other: No pericholecystic fluid. Right Kidney: No hydronephrosis. Ascites: None. IMPRESSION: Visualized liver is unremarkable except for stable subcentimeter echogenic lesion in the right lobe that is likely benign. Cholelithiasis. No biliary dilatation. Ruching Machine Operator: LAVINIA Transcribe Date/Time: Jul 17 2025 10:24A Dictated by : PALMA WINTERS MD This examination was interpreted and the report reviewed and electronically signed by: PALMA WINTERS MD on Jul 17 2025 11:43AM EST [id number] Normal [facility] US Abdomen RUQon 07-17-2025 IMPRESSION: Visualized liver is unremarkable except for stable subcentimeter echogenic lesion in the right lobe that is likely benign. Cholelithiasis. No biliary dilatation. Ruching Machine Operator: LAVINIA Transcribe Date/Time: Jul 17 2025 10:24A Dictated by : PALMA WINTERS MD This examination was interpreted and the report reviewed and electronically signed by: PALMA WINTERS MD on Jul 17 2025 11:43AM [facility] DIVISION OF RADIOLOGY * * *Final Report* * * DATE OF EXAM: Jul 17 2025 10:23AM TARA 1032 - US ABD RIGHT UPPER QUADRANT / PROCEDURE REASON: Liver disease * * * * Physician Interpretation * * * * EXAMINATION: RIGHT UPPER QUADRANT ULTRASOUND CLINICAL HISTORY: Liver disease TECHNIQUE: Sonography of the right upper quadrant was performed. Images were obtained and stored in a permanent archive. MQ: URUQ_2 COMPARISON: Ultrasound 02/13/2025 RESULT: Exam performed with patient in wheelchair/seated upright, somewhat limiting visualization of portions of the liver/abdomen. Pancreas: Obscured Liver: Portions of the left lobe are obscured. Echotexture: Normal, homogeneous. Echogenicity: Normal Surface contour: Smooth Lesions: Stable subcentimeter echogenic lesion in the right lobe, likely benign. Biliary: No intrahepatic biliary duct dilation. CBD: 0.5 cm at the hilum. Gallbladder: Only partially visualized. -Contents: Cholelithiasis -Wall: Normal -Other: No pericholecystic fluid. Right Kidney: No hydronephrosis. Ascites: None. DIVISION OF RADIOLOGY Provider, [facility] - 07/17/2025 * * *Final Report* * * DATE OF EXAM: Jul 17 2025 10:23AM TARA 1032 - US ABD RIGHT UPPER QUADRANT / PROCEDURE REASON: Liver disease * * * * Physician Interpretation * * * * EXAMINATION: RIGHT UPPER QUADRANT ULTRASOUND CLINICAL HISTORY: Liver disease TECHNIQUE: Sonography of the right upper quadrant was performed. Images were obtained and stored in a permanent archive. MQ: URUQ_2 COMPARISON: Ultrasound 02/13/2025 RESULT: Exam performed with patient in wheelchair/seated upright, somewhat limiting visualization of portions of the liver/abdomen. Pancreas: Obscured Liver: Portions of the left lobe are obscured. Echotexture: Normal, homogeneous. Echogenicity: Normal Surface contour: Smooth Lesions: Stable subcentimeter echogenic lesion in the right lobe, likely benign. Biliary: No intrahepatic biliary duct dilation. CBD: 0.5 cm at the hilum. Gallbladder: Only partially visualized. -Contents: Cholelithiasis -Wall: Normal -Other: No pericholecystic fluid. Right Kidney: No hydronephrosis. Ascites: None. IMPRESSION IMPRESSION: Visualized liver is unremarkable except for stable subcentimeter echogenic lesion in the right lobe that is likely benign. Cholelithiasis. No biliary dilatation. Ruching Machine Operator: LAVINIA Transcribe Date/Time: Jul 17 2025 10:24A Dictated by : PALMA WINTERS MD This examination was interpreted and the report reviewed and electronically signed by: PALMA WINTERS MD on Jul 17 2025 11:43AM EST [facility] Radiology Study observation (narrative) [facility] US Abdomen RUQOrdered By: Brooke f Provider on 07-17-2025 [facility] aPTT PPPon 07-17-2025 aPTT Coag (PPP) [Time] 34.3 s High 23.0-32.4 [facility] Comment on above: Order Comment: Speci men Type: BLOOD SPECIMENOrdering Facility: [facility] Address: [address] [place] [address] Performed By: #### 3 4528-0, 48227-5 ####[facility] LABCLIA [id number] [place] [address] [place] Absolute lymphocyte countOrd ered By: Elisa Narvaez on 07-16-2025 Lymphocytes Auto (Unsp spec) [#/Vol] 0.41 10*3/uL Low 0.83-4.51 [facility] Absolute neutrophil countOrd ered By: Elisa Narvaez on 07-16-2025 Neutrophils (Bld) [#/Vol] 4.8 10*3/uL 2.0-7.7 [facility] Anion gap in Serum or Plasma Ordered By: Elisa Narvaez on 07-16-2025 Anion gap [Moles/Vol] 10 mmol/L 5-15 [facility] Automated lymphocyte count a s percentage of total leukocytesOrdered By: Elisa Narvaez on 07-16-2025 Lymphocytes/100 WBC Auto (Unsp spec) 7.0 % Low 19-41 [facility] BUN/creatinine ratioOrdered By: Elisa Narvaez on 07-16-2025 Urea nitrogen/Creatinine [Mass ratio] 20.3 mg/mg High 10-20 [facility] Basic Metabolic Profile (BMP )on 07-16-2025 BUN/CRE 20.3 RATIO High 10-20 [facility] Comment on above: Order Comment: 302 Performed By: #### L 503.5510 #### [facility] [address] [place], [address] Calcium [Mass/Vol] 9.0 mg/dL Normal 7.6-11.0 [facility] Comment on above: Order Comment: 302 Performed By: #### L 503.5510 #### [facility] [address] [place], [address] Chloride [Moles/Vol] 111 mmol/L High 98-108 [facility] Comment on above: Order Comment: 302 Performed By: #### L 503.5510 #### [facility] [address] [place], [address] CO2 [Moles/Vol] 19.4 mmol/L Low 21.0-32.0 [facility] Comment on above: Order Comment: 302 Performed By: #### L 503.5510 #### [facility] [address] [place], [address] Creatinine [Mass/Vol] 0.97 mg/dL Normal 0.70-1.20 [facility] Comment on above: Order Comment: 302 Performed By: #### L 503.5510 #### [facility] [address] [place], [address] GAP 10 Normal 5-15 [facility] Comment on above: Order Comment: 302 Performed By: #### L 503.5510 #### [facility] [address] [place], [address] GFR/1.73 sq M.predicted among non-blacks MDRD (S/P/Bld) [Vol rate/Area] 82 mL/min/{1.73_m2} Normal >60 [facility] Comment on above: Order Comment: 302 Result Comment: mL/m in/1.73m2 CKD-EPI Creatinine Equation (2020) Performed By: #### L 503.5510 #### [facility] [address] [place], [address] Glucose [Mass/Vol] 128 mg/dL High 70-99 [facility] Comment on above: Order Comment: 302 Performed By: #### L 503.5510 #### [facility] [address] [place], [address] Potassium [Moles/Vol] 4.2 mmol/L Normal 3.3-5.1 [facility] Comment on above: Order Comment: 302 Performed By: #### L 503.5510 #### [facility] [address] [place], [address] Sodium [Moles/Vol] 141 mmol/L Normal 133-145 [facility] Comment on above: Order Comment: 302 Performed By: #### L 503.5510 #### [facility] [address] [place], [address] Urea nitrogen [Mass/Vol] 20 mg/dL High 4-19 [facility] Comment on above: Order Comment: 302 Performed By: #### L 503.5510 #### [facility] [address] [place], [address] Basophil percentageOrdered B y: Elisa Narvaez on 07-16-2025 Basophils/100 WBC (Bld) 0.5 % 0-1 [facility] CBC W/Diff, Automatedon Absolute Lymph 0.41 X10 3/uL Low 0.83-4.51 [facility] Comment on above: Order Comment: 302 Performed By: #### L 503.5510 #### [facility] [address] [place], [address] Absolute Neut 4.8 X10 3/uL Normal 2.0-7.7 [facility] Comment on above: Order Comment: 302 Performed By: #### L 503.5510 #### [facility] [address] [place], [address] Basophils/100 WBC (Bld) 0.5 % Normal 0-1 [facility] Comment on above: Order Comment: 302 Performed By: #### L 503.5510 #### [facility] [address] [place], [address] Eosinophils/100 WBC (Bld) 4.8 % Normal 0-5 [facility] Comment on above: Order Comment: 302 Performed By: #### L 503.5510 #### [facility] [address] [place], [address] Erythrocyte distribution width (RBC) [Ratio] 14.5 % Normal 11.6-14.6 [facility] Comment on above: Order Comment: 302 Performed By: #### L 503.5510 #### [facility] [address] [place], [address] Hematocrit (Bld) [Volume fraction] 35.4 % Low 40-54 [facility] Comment on above: Order Comment: 302 Performed By: #### L 503.5510 #### [facility] [address] [place], [address] Hemoglobin (Bld) [Mass/Vol] 11.5 g/dL Low 13.0-16.5 [facility] Comment on above: Order Comment: 302 Performed By: #### L 503.5510 #### [facility] [address] [place], [address] IG% 0.900 Normal 0.0-0.9 [facility] Comment on above: Order Comment: 302 Result Comment: IG% - Immature Granulocytes (promyelocytes, myelocytes and metamyelocytes) > 1% indicates that a LEFT SHIFT is Present. Performed By: #### L 503.5510 #### [facility] [address] [place], [address] Lymphocytes/100 WBC (Bld) 7.0 % Low 19-41 [facility] Comment on above: Order Comment: 302 Performed By: #### L 503.5510 #### [facility] [address] [place], [address] MCH (RBC) [Entitic mass] 32.7 pg High 27.0-32.0 [facility] Comment on above: Order Comment: 302 Performed By: #### L 503.5510 #### [facility] [address] [place], [address] MCHC (RBC) [Mass/Vol] 32.5 g/dL Normal 32-36 [facility] Comment on above: Order Comment: 302 Performed By: #### L 503.5510 #### [facility] [address] [place], [address] MCV (RBC) [Entitic vol] 100.6 fL High 80-94 [facility] Comment on above: Order Comment: 302 Performed By: #### L 503.5510 #### [facility] [address] [place], [address] Monocytes/100 WBC (Bld) 4.9 % Normal 0-10 [facility] Comment on above: Order Comment: 302 Performed By: #### L 503.5510 #### [facility] [address] [place], [address] Neutrophils/100 WBC (Bld) 81.9 % High 47-70 [facility] Comment on above: Order Comment: 302 Performed By: #### L 503.5510 #### [facility] [address] [place], [address] Nucleated RBC (Bld) [#/Vol] 0 10*3/uL Normal 0-5 [facility] Comment on above: Order Comment: 302 Performed By: #### L 503.5510 #### [facility] [address] [place], [address] Platelet mean volume (Bld) [Entitic vol] 11.7 fL Normal 6.2-12.0 [facility] Comment on above: Order Comment: 302 Performed By: #### L 503.5510 #### [facility] [address] [place], [address] Platelets (Bld) [#/Vol] 140 10*3/uL Low 150-450 [facility] [facility] Comment on above: Order Comment: 302 Performed By: #### L [id number] #### [facility] [address] [place], [address] RBC (Bld) [#/Vol] 3.52 10*6/uL Low 4.6-6.2 [facility] Comment on above: Order Comment: 302 Performed By: #### L [id number] #### [facility] [address] [place], [address] RDW SD 53.1 fl High 35.1-43.9 [facility] Comment on above: Order Comment: 302 Performed By: #### L [id number] #### [facility] [address] [place], [address] WBC (Bld) [#/Vol] 5.9 10*3/uL Normal 4.4-11.0 [facility] Comment on above: Order Comment: 302 Performed By: #### L [id number] #### [facility] [address] [place], [address] Carbon dioxide, total [Moles /volume] in Central venous bloodOrdered By: Elisa Narvaez on 07-16-2025 CO2 [Moles/Vol] 19.4 mmol/L Low 21.0-32.0 [facility] Chloride assayOrdered By: Lino Narvaez on 07-16-2025 Chloride [Moles/Vol] 111 mmol/L High 98-108 [facility] Eosinophil percentageOrdered By: Elisa Narvaez on 07-16-2025 Eosinophils/100 WBC (Bld) 4.8 % 0-5 [facility] Erythrocyte distribution wid th ratioOrdered By: Elisa Narvaez on 07-16-2025 Erythrocyte distribution width (RBC) [Ratio] 14.5 % 11.6-14.6 [facility] Erythrocyte distribution wid th standard deviationOrdered By: Elisa Narvaez on 07-16-2025 Erythrocyte distribution width (RBC) [Ratio] 53.1 fl High 35.1-43.9 [facility] Glomerular filtration rate ( GFR) estimation/1.73 sq m using serum, plasma, or whole bOrdered By: Elisa Narvaez on 07-16-2025 GFR/1.73 sq M.predicted among non-blacks MDRD (S/P/Bld) [Vol rate/Area] 82 mL/min/{1.73_m2} >60 [facility] Comment on above: mL/min/1.73m2 CKD-EP I Creatinine Equation (2020) Hematocrit Auto (Bld) [Volum e fraction]Ordered By: Elisa Narvaez on 07-16-2025 Hematocrit (Bld) [Volume fraction] 35.4 % Low 40-54 [facility] Hemoglobin measurementOrdere d By: Elisa Narvaez on 07-16-2025 Hemoglobin (Bld) [Mass/Vol] 11.5 g/dL Low 13.0-16.5 [facility] Immature granulocytes/100 WB C Auto (Bld)Ordered By: Elisa Narvaez on 07-16-2025 Immature granulocytes/100 WBC (Bld) 0.900 % 0.0-0.9 [facility] Comment on above: IG% - Immature Granu locytes (promyelocytes, myelocytes and metamyelocytes) > 1% indicates that a LEFT SHIFT is Present. MCV (mean corpuscular volume ) determinationOrdered By: Elisa Narvaez on 07-16-2025 MCV (RBC) [Entitic vol] 100.6 fL High 80-94 [facility] Mean corpuscular hemoglobin (MCH) determinationOrdered By: Elisaely Narvaez on 07-16-2025 MCH (RBC) [Entitic mass] 32.7 pg High 27.0-32.0 [facility] Mean corpuscular hemoglobin concentration (MCHC) determinationOrdered By: Elisa Rafia on 07-16-2025 MCHC (RBC) [Mass/Vol] 32.5 g/dL 32-36 [facility] Mean platelet volume determi nationOrdered By: Elisaely Narvaez on 07-16-2025 Platelet mean volume (Bld) [Entitic vol] 11.7 fL 6.2-12.0 [facility] Monocyte percentageOrdered B y: Elisa Narvaez on 07-16-2025 Monocytes/100 WBC (Bld) 4.9 % 0-10 [facility] Neurology Visit Reporton Neurology Visit Report [facility] [address], [address] [place] [address] OFFICE VISIT Date of Service: 07/16/25 MR#: [id number] Acct: [id number] Name: STEPH BAUMANN REGINA Rep #: [id number] : 1950 Provider: Dr. Dwayne iniguez MD Age/Sex: 75/M Location: [facility] Status: Signed with Addenda ADDENDUM by Dr. Dwayne Horton MD on 07/16/25 at 1808 Assessment Plan Assessment/Plan (1) Parkinson's disease: Status: Chronic Code(s): G20 - Parkinson's disease (2) Abnormality of gait and mobility: Status: Chronic Code(s): R26.9 - Unspecified abnormalities of gait and mobility (3) Muscle hypertonia: Status: Acute Code(s): M62.89 - Other specified disorders of muscle Office Visits / Consults: 91841 OV L3 Est 20min (Change 07/16/2025 office visit code from level 4 to level 3 established) 07/16/25 0874 Date Dwayne Horton MD cc: * Signed HPI HPI Chief Complaint: Details: Interim [...] also reported having had a stroke in 2016, however there was evidence of an old right MCA infarct on his head MRI from 2013. His stroke manifested with confusion and gait imbalance and apparently the symptoms improved. He takes Eliquis for atrial fibrillation. He is accompanied by his . No change in his memory within recent months is reported. He has not had recent symptoms reported suggestive of recurrent cerebrovascular ischemia. In 2021, he was diagnosed with prostate cancer. He had radiation therapy (in 2021) and hormonal therapy and has had a [...] pain and this has limited his mobility. His reports that he is recently been found to have a right inguinal hernia and is scheduled to have right inguinal surgery later in 2024. He has had gait difficulty since 2020 [...] in 2021 though subsequently his gait worsened. Per prior report, he was able to stand and take 1 or 2 steps with assistance. He is prescribed tramadol for his right hip pain. He has had physical therapy and this was of some benefit. 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 He has a several year history of urinary incontinence. He reported that he was treated with levetiracetam and topiramate for a period of time following his meningioma resection however he stated that he has never had a seizure and levetiracetam and topiramate were subsequently discontinued. He had an episode of decreased movement and appearing to stare lasting about 1 hour however during this time he was able to respond verbally when questioned. This possibly may have been a freezing episode due to his Parkinson's disease. He used cocaine in the past; his last use was around 2016. He used marijuana in the past; his last use was around 2006. There is no history of alcohol abuse. He has had 3 years of college education. Mini-Mental status exam score was 27/30 on 05/24/2022. Baclofen has been of some benefit in reducing his left-sided (arm and leg) hypertonia. He has peripheral arterial disease. He denied [...] polyneuropathy. Trazodone caused anxiety. His insomnia has sin (more content not included)... Normal [facility] Neutrophil percentageOrdered By: Elisa Narvaez on 07-16-2025 Neutrophils/100 WBC (Bld) 81.9 % High 47-70 [facility] Nucleated red blood cell per centageOrdered By: Elisa Narvaez on 07-16-2025 Nucleated RBC/100 WBC (Bld) [Ratio] 0 % 0-5 [facility] Platelet countOrdered By: Lino Narvaez on 07-16-2025 Platelets (Bld) [#/Vol] 140 10*3/uL Low 150-450 [facility] Potassium measurement (mass/ volume)Ordered By: Elisa Narvaez on 07-16-2025 Potassium (Unsp spec) [Mass/Vol] 4.2 mmol/L 3.3-5.1 [facility] RBC Auto (Bld) [#/Vol]Ordere d By: Elisa Narvaez on 07-16-2025 RBC (Bld) [#/Vol] 3.52 10*6/uL Low 4.6-6.2 [facility] Serum creatinine measurement (mass/volume)Ordered By: Elisa Narvaez on 07-16-2025 Creatinine [Mass/Vol] 0.97 mg/dL 0.70-1.20 [facility] Serum glucose measurement (m ass/volume)Ordered By: Elisa Narvaez on 07-16-2025 Glucose [Mass/Vol] 128 mg/dL High 70-99 [facility] Serum or plasma calcium carol urement (mass/volume)Ordered By: Elisa Narvaez on 07-16-2025 Calcium [Mass/Vol] 9.0 mg/dL 7.6-11.0 [facility] Serum or plasma urea nitroge n measurement (mass/volume)Ordered By: Elisa Narvaez on 07-16-2025 Urea nitrogen [Mass/Vol] 20 mg/dL High 4-19 [facility] Sodium levelOrdered By: Alden Narvaez on 07-16-2025 Sodium [Moles/Vol] 141 mmol/L 133-145 [facility] White blood cell (WBC) count Ordered By: Elisa Narvaez on 07-16-2025 WBC (Bld) [#/Vol] 5.9 10*3/uL 4.4-11.0 [facility] Ammoniaon 07-09-2025 Ammonia (P) [Moles/Vol] 22.7 umol/L Normal 16-60 [facility] Comment on above: Order Comment: 302 Performed By: #### L [id number] #### [facility] [address] [place], [place], [id number] Venous blood ammonia measure mentOrdered By: Elisa Narvaez on 07-09-2025 Ammonia (P) [Moles/Vol] 22.7 umol/L 16-60 [facility] Cardiology Visit Reporton Cardiology Visit Report [facility] [address] [place] [address] OFFICE VISIT Date of Service: 06/18/25 MR#: [id number] Acct: [id number] Name: STEPH BAUMANN (RICK) Rep #: [id number] : 1950 Provider: LON Solomon Age/Sex: 75/M Location: [facility] Status: Signed HPI HPI History of Present Illness Details: Steph Baumann is a 75-year-old gentleman that presents here today for a [...] with ascites. He is established with a erp technical lead (Dr. Loredo- [facility]). He has also been diagnosed with prostate cancer and follows with the radiation oncologist here and is on bicalutamide. His last echocardiogram was in November 2020 demonstrating an ejection fraction of 20% with a moderately dilated LV, global hypokinesis and pulmonary systolic pressure of 50 mmHg. He is currently domiciled at [facility] and has been doing quite well. His biggest issue is his hip pain. He is planning on having a hernia repair at [facility]. They think that this is causing his hip pain. Intake Vital Signs 12/12/24 11:11 06/18/25 14:05 Height 5 ft 9 in 5 ft 9 in BP 113/75 Blood Pressure Location Lt brachial Position Sitting Respiration 16 Pulse 68 Pulse Source Monitor Intake Visit Reasons: 6 M FU/ Seeing Maribell at 1:30pm Vp Global Required: No Is patient in pain?: No Allergies oxycodone Adverse Reaction (Verified 06/18/25 14:11) hallucinations Medications ???Medication ???Instructions ???Recorded ???Confirmed ???Type bicalutamide 50 mg tablet (Casodex) 50 mg PO DAILY prostate 2 06/18/25 History multivitamin 1 tab PO DAILY supplement 02/19/22 06/18/25 History dextrose 40 % oral gel (Glucose 15 g PO Q15M PRN Hypoglycemia 04/0706/18/25 History Gel) acetazolamide 250 mg tablet 250 mg PO BID 06/08/23 06/18/25 Hi story docusate sodium 100 mg capsule 100 mg PO BID CONSTIPATION 3 06/18/25 History bisacodyl 10 mg rectal suppository 10 mg WV DAILY PRN constipation 06/21/23 06/18/25 History sennosides 8.6 mg tablet (senna) 17.2 mg PO QHS CONSTIPATION 06/18/25 History cholecalciferol (vitamin D3) 50 50 mcg PO DAILY 10/06/23 06/18/25 History mcg (2,000 unit) capsule lisinopril 5 mg tablet 5 mg PO DAILY 10/06/23 06/18/25 Hi story sertraline 50 mg tablet 50 mg PO DAILY #30 tabs 10/18/23 0 06/18/25 Rx aluminum-magnesium hydroxide 225 30 ml PO Q4H PRN 06/19/24 06/18/25 History mg-200 mg/5 mL oral suspension bumetanide 2 mg tablet 1 mg PO DAILY leg swelling 4 06/18/25 History carbidopa 25 mg-levodopa 100 mg 2 tab PO TID PARKINSONS 06/19/24 0 06/18/25 History tablet guaifenesin 100 mg/5 mL oral liquid 200 mg PO Q4H PRN 06/19/2406/07 History lactulose 20 gram/30 mL oral 30 g PO TID 06/19/24 06/18/25 Hist ory solution methyl salicylate 15 %-menthol 10 1 applic topical DAILY 06/19/24 0 06/18/25 History % topical cream (Muscle Rub) mineral oil (Fleet Mineral Oil 118 ml WV DAILY PRN 06/19/2406/18 History enema) ondansetron HCl 4 mg tablet 4 mg PO Q8H 06/19/24 06/18/25 Hist ory apixaban 2.5 mg tablet (Eliquis) 2.5 mg PO BID 01/24/25 06/18/25 Hi story baclofen 20 mg tablet 20 mg PO TID muscle pain/spasm 06/18/25 History diclofenac sodium 1 % topical gel 2 g topical Q12H PRN 01/24/2510/31 History glucagon 1 mg solution for 1 mg subcut Q20M PRN 01/24/2506/07 History injection magnesium hydroxide 400 mg/5 mL 30 ml PO QDAY PRN 01/24/25 5 History oral suspension (Milk of Magnesia) pantoprazole 40 mg tablet,delayed 40 mg PO QDAY 01/24/25 06/18/25 H istory release potassium chloride 20 mEq 20 meq PO QDAY 01/24/25 06/18/25 H istory tablet,extended release tramadol 50 mg tablet 50 mg PO Q6H PRN LOWER BACK PAIN 0 01/24/25 06/18/25 History dulaglutide 1.5 mg/0.5 mL mg subcut 06/18/25 06/18/25 Histor y subcutaneous pen injector (Trulicity) insulin glargine 100 unit/mL (3 7 unit subcut QPM DIABETES 5 06/18/25 History mL) subcutaneous pen Ejection fraction %: 25 Have you fallen in the past year?: No [facility] Acute and chronic respiratory failure with hypoxia Acute heart failure with reduced ejection fraction and diastolic dysfunction Adult failure to thrive Ambulates with cane Anticoagulant long-term use Anxiety Ascites Asthma Atheros (more content not included)... Normal [facility] Pacemaker Checkon 06-18-2025 Pacemaker Check [facility] [place] [address] Pacemaker Check Date of Service: 06/18/25 173 MR#: [id number] Acct: [id number] Name: STEPH BAUMANN (RICK) Rep #: [id number] : 1950 From: Tahmina Vyas Age/Sex: 75/M Location: [facility] Status: Signed Billing Codes ICD Device Billin ICD Dev Prog Eval, Multi Assessment and Plan Assessment and Plan (1) Biventricular ICD (implantable cardioverter-defibrillator ) in place: Status: Chronic (2) Chronic combined systolic and diastolic CHF (congestive heart failure): Status: Chronic (3) Longstanding persistent atrial fibrillation: Status: Chronic (4) Nonischemic cardiomyopathy: Status: Chronic 06/18/25 173 Date Tahmina Velazquez Signature: Date (if applicable) CC: Normal [facility] Ammoniaon 06-11-2025 Ammonia (P) [Moles/Vol] 14.3 umol/L Low [facility] Comment on above: Performed By: #### L 503.5510 #### [facility] [address] [place], [place], [id number] Venous blood ammonia measure mentOrdered By: Elisa Narvaez on 06-11-2025 Ammonia (P) [Moles/Vol] 14.3 umol/L Low [facility] Anion gap in Serum or Plasma Ordered By: Elisa Narvaez on 05-30-2025 Anion gap [Moles/Vol] 11 mmol/L 03-21 [facility] BUN/creatinine ratioOrdered By: Elisa Narvaez on 05-30-2025 Urea nitrogen/Creatinine [Mass ratio] 24.2 mg/mg High 08-26 [facility] Basic Metabolic Profile (BMP )on 05-30-2025 BUN/CRE 24.2 RATIO High 08-26 [facility] Comment on above: Order Comment: 302 Performed By: #### L [id number] #### [facility] [address] [place], [place], [id number] Calcium [Mass/Vol] 8.8 mg/dL Normal 7.6-11.0 [facility] Comment on above: Order Comment: 302 Performed By: #### L [id number] #### [facility] [address] [place], [address] Chloride [Moles/Vol] 111 mmol/L High 98-108 [facility] Comment on above: Order Comment: 302 Performed By: #### L [id number] #### [facility] [address] [place], [address] CO2 [Moles/Vol] 18.5 mmol/L Low 21.0-32.0 [facility] Comment on above: Order Comment: 302 Performed By: #### L [id number] #### [facility] [address] [place], [address] Creatinine [Mass/Vol] 1.05 mg/dL Normal 0.70-1.20 [facility] Comment on above: Order Comment: 302 Performed By: #### L [id number] #### [facility] [address] [place], [address] GAP 11 Normal 5-15 [facility] Comment on above: Order Comment: 302 Performed By: #### L [id number] #### [facility] [address] [place], [address] GFR/1.73 sq M.predicted among non-blacks MDRD (S/P/Bld) [Vol rate/Area] 75 mL/min/{1.73_m2} Normal >60 [facility] Comment on above: Order Comment: 302 Result Comment: mL/m in/1.73m2 CKD-EPI Creatinine Equation (2020) Performed By: #### L 503.5510 #### [facility] [address] [place], [address] Glucose [Mass/Vol] 138 mg/dL High 70-99 [facility] Comment on above: Order Comment: 302 Performed By: #### L [id number] #### [facility] [address] [place], [address] Potassium [Moles/Vol] 4.0 mmol/L Normal 3.3-5.1 [facility] Comment on above: Order Comment: 302 Performed By: #### L [id number] #### [facility] [address] [place], [address] Sodium [Moles/Vol] 141 mmol/L Normal 133-145 [facility] Comment on above: Order Comment: 302 Performed By: #### L [id number] #### [facility] [address] [place], [address] Urea nitrogen [Mass/Vol] 25 mg/dL High 4-19 [facility] Comment on above: Order Comment: 302 Performed By: #### L [id number] #### [facility] [address] [place], [address] Carbon dioxide, total [Moles /volume] in Central venous bloodOrdered By: Elisa Narvaez on 05-30-2025 CO2 [Moles/Vol] 18.5 mmol/L Low 21.0-32.0 [facility] Chloride assayOrdered By: Lino Narvaez on 05-30-2025 Chloride [Moles/Vol] 111 mmol/L High 98-108 [facility] Glomerular filtration rate ( GFR) estimation/1.73 sq m using serum, plasma, or whole bOrdered By: Elisa Narvaez on 05-30-2025 GFR/1.73 sq M.predicted among non-blacks MDRD (S/P/Bld) [Vol rate/Area] 75 mL/min/{1.73_m2} >60 [facility] Comment on above: mL/min/1.73m2 CKD-EP I Creatinine Equation (2020) Magnesiumon 05-30-2025 Magnesium [Mass/Vol] 2.3 mg/dL High 1.5-2.2 [facility] Comment on above: Order Comment: 302 Performed By: #### L 503.5510 #### [facility] [address] [place], [address] Magnesium measurement (mass/ volume)Ordered By: Elisa Narvaez on 05-30-2025 Magnesium (Unsp spec) [Mass/Vol] 2.3 mg/dL High 1.5-2.2 [facility] Potassium measurement (mass/ volume)Ordered By: Elisa Narvaez on 05-30-2025 Potassium (Unsp spec) [Mass/Vol] 4.0 mmol/L 3.3-5.1 [facility] Serum creatinine measurement (mass/volume)Ordered By: Elisa Narvaez on 05-30-2025 Creatinine [Mass/Vol] 1.05 mg/dL 0.70-1.20 [facility] Serum glucose measurement (m ass/volume)Ordered By: Elisa Narvaez on 05-30-2025 Glucose [Mass/Vol] 138 mg/dL High 70-99 [facility] Serum or plasma calcium carol urement (mass/volume)Ordered By: Elisa Narvaez on 05-30-2025 Calcium [Mass/Vol] 8.8 mg/dL 7.6-11.0 [facility] Serum or plasma urea nitroge n measurement (mass/volume)Ordered By: Elisa Narvaez on 05-30-2025 Urea nitrogen [Mass/Vol] 25 mg/dL High 4-19 [facility] Sodium levelOrdered By: Alden Narvaez on 05-30-2025 Sodium [Moles/Vol] 141 mmol/L 133-145 [facility] PSA SerPl-mCncon 05-29-2025 Prostate specific Ag [Mass/Vol] ng/mL Normal <2.60 [facility] Comment on above: Order Comment: Speci men Type: BLOOD SPECIMENOrdering Facility: [facility] Address: [address] [place] [address] Result Comment: Tota l PSA test methodology used is the Electrochemiluminescence Immunoassay by [employer]. Total PSA values by differing methodologies cannot be interchanged. Performed By: #### 2 857-1 ####[facility] [id number] [address] [place] [facility] [id number] 05-21-2025 Natriuretic peptide B (Bld) [Mass/Vol] 1734 pg/mL High <=900 [facility] Comment on above: Order Comment: 302.1 Result Comment: Hear t Failure Unlikely: < 300 pg/mL Heart Failure Likely < 50 Years: > 450 pg/mL 50-75 Years: > 900 pg/mL >75 Years: > 1800 pg/mL Performed By: #### L 503.7505 #### [facility] [address] [place], [address] Natriuretic peptide.B prohor kianna N-Terminal [Mass/volume] in Serum or PlasmaOrdered By: Elisa Narvaez on 05-21-2025 Natriuretic peptide.B prohormone N-Terminal [Mass/Vol] 1734 pg/mL High <900 [facility] Comment on above: Heart Failure Unlike ly: < 300 pg/mLHeart Failure Likely< 50 Years: > 450 pg/mL50-75 Years: > 900 pg/mL>75 Years: > 1800 pg/mL CNOVon 05-16-2025 CNOV Office Visit ([facility] ) -- STEPH BAUMANN ([id number]) 1950 M Date Time Provider Department 05/16/25 3:50 PM EL ARNETT During your visit today, we recorded the following information about you: Temperature Pulse Blood pressure Weight 97.5 degrees 70/minute 113/64 78.1 kg Height 1.753 m Shara Johnston 05/16/2025 5:08 PM Signed What is the reason for your visit today? EST Who is your referring physician? Dr. Arnett Are you having poor oral intake? NO Have you had unintentional weight loss of 15 lbs/7 Kg in the last 3-6 months? NO Bowels: regular Wound: clean AND dry Temperature: No Drains: No Skylar Soriano 05/16/2025 4:51 PM Signed CLINIC NOTE Steph Baumann [id number] SUBJECTIVE: Steph Baumann is a 74 year old male with PMHx of HTN, afib (on eiliquis), CHF s/p ICD, T2DM, liver cirrhosis, portal HTN, ALBINO, BPH who presents to clinic for evaluation of right inguinal hernia on 05/16/[address] Arnett. He was last seen by Dr. Arnett on 03/09/2021 for hernia, but was asymptomatic [...] right inguinal hernia on 05/16/[address] Arnett. Discussed the risks and benefits of undergoing [...] Office will reach out to schedule procedure Skylar Soriano, MS4 General Surgery May 16, 2025 3:06 PM Hernia Team Emiliano (Otto Kendrick Rosenblatt): [phone] [place] (Ce Bhatia, Hope): [phone] After 6PM + weekends: [phone] El Arnett MD 05/16/2025 5:08 PM Signed Consultation requested [...] is a friend of the family from [place] and the decision clearly weighs heavily on her so she understands the risks but also wants to give him agency in the decision and he clearly wants to move forward. Given his comorbidities we'll plan for at least a 2 night hospital stay before return to his SNF where he lives. El Arnett MD I have seen and evaluated the [...] administered onc (more content not included)... Normal [facility] Ammoniaon 05-14-2025 Ammonia (P) [Moles/Vol] 20.1 umol/L Normal - [facility] Comment on above: Order Comment: 302 Performed By: #### L [id number] #### [facility] [address] [place], [place], [phone] Venous blood ammonia measure mentOrdered By: Elisa Narvaez on 05-14-2025 Ammonia (P) [Moles/Vol] 20.1 umol/L - [facility] Anion gap in Serum or Plasma Ordered By: Elisa Narvaez on 04-24-2025 Anion gap [Moles/Vol] 8 mmol/L - [facility] BUN/creatinine ratioOrdered By: Elisa Narvaez on 04-24-2025 Urea nitrogen/Creatinine [Mass ratio] 17.5 mg/mg - [facility] Basic Metabolic Profile (BMP )on 04-24-2025 BUN/CRE 17.5 RATIO Normal - [facility] Comment on above: Performed By: #### L 503.5510 #### [facility] [address] [place], [address] Calcium [Mass/Vol] 8.7 mg/dL Normal 7.6-11.0 [facility] Comment on above: Performed By: #### L 503.5510 #### [facility] [address] [place], [address] Chloride [Moles/Vol] 107 mmol/L Normal 98-108 [facility] Comment on above: Performed By: #### L 503.5510 #### [facility] [address] [place], [address] CO2 [Moles/Vol] 20.4 mmol/L Low 21.0-32.0 [facility] Comment on above: Performed By: #### L 503.5510 #### [facility] [address] [place], [address] Creatinine [Mass/Vol] 1.01 mg/dL Normal 0.70-1.20 [facility] Comment on above: Performed By: #### L 503.5510 #### [facility] [address] [place], [address] GAP 8 Normal 5-15 [facility] Comment on above: Performed By: #### L 503.5510 #### [facility] [address] [place], [address] GFR/1.73 sq M.predicted among non-blacks MDRD (S/P/Bld) [Vol rate/Area] 79 mL/min/{1.73_m2} Normal >60 [facility] Comment on above: Result Comment: mL/m in/1.73m2 CKD-EPI Creatinine Equation (2020) Performed By: #### L 503.5510 #### [facility] [address] [place], [address] Glucose [Mass/Vol] 129 mg/dL High 70-99 [facility] Comment on above: Performed By: #### L 503.5510 #### [facility] [address] [place], [address] Potassium [Moles/Vol] 4.4 mmol/L Normal 3.3-5.1 [facility] Comment on above: Performed By: #### L 503.5510 #### [facility] [address] [place], [address] Sodium [Moles/Vol] 135 mmol/L Normal 133-145 [facility] Comment on above: Performed By: #### L 503.5510 #### [facility] [address] [place], [address] Urea nitrogen [Mass/Vol] 18 mg/dL Normal 4-19 [facility] Comment on above: Performed By: #### L 503.5510 #### [facility] [address] [place], [address] CBC-Complete Blood Cnt No Di ffon 04-24-2025 Erythrocyte distribution width (RBC) [Ratio] 14.4 % Normal 11.6-14.6 [facility] Comment on above: Performed By: #### L 503.5510 #### [facility] [address] [place], [address] Hematocrit (Bld) [Volume fraction] 38.5 % Low 40-54 [facility] Comment on above: Performed By: #### L 503.5510 #### [facility] [address] [place], [address] Hemoglobin (Bld) [Mass/Vol] 12.4 g/dL Low 13.0-16.5 [facility] Comment on above: Performed By: #### L 503.5510 #### [facility] [address] [place], [address] MCH (RBC) [Entitic mass] 32.4 pg High 27.0-32.0 [facility] Comment on above: Performed By: #### L 503.5510 #### [facility] [address] [place], [address] MCHC (RBC) [Mass/Vol] 32.2 g/dL Normal 32-36 [facility] Comment on above: Performed By: #### L 503.5510 #### [facility] [address] [place], [address] MCV (RBC) [Entitic vol] 100.5 fL High 80-94 [facility] Comment on above: Performed By: #### L 503.5510 #### [facility] [address] [place], [address] Platelet mean volume (Bld) [Entitic vol] 11.5 fL Normal 6.2-12.0 [facility] Comment on above: Performed By: #### L 503.5510 #### [facility] [address] [place], [address] Platelets (Bld) [#/Vol] 125 10*3/uL Low 150-450 [facility] Comment on above: Performed By: #### L 503.5510 #### [facility] [address] [place], [address] RBC (Bld) [#/Vol] 3.83 10*6/uL Low 4.6-6.2 [facility] Comment on above: Performed By: #### L 503.5510 #### [facility] [address] [place], [address] RDW SD 52.8 fl High 35.1-43.9 [facility] Comment on above: Performed By: #### L 503.5510 #### [facility] [address] [place], [address] WBC (Bld) [#/Vol] 5.5 10*3/uL Normal 4.4-11.0 [facility] Comment on above: Performed By: #### L 503.5510 #### [facility] [address] [place], [address] Carbon dioxide, total [Moles /volume] in Central venous bloodOrdered By: Elisa Narvaez on 04-24-2025 CO2 [Moles/Vol] 20.4 mmol/L Low 21.0-32.0 [facility] Chloride assayOrdered By: Lino Narvaez on 04-24-2025 Chloride [Moles/Vol] 107 mmol/L 98-108 [facility] Erythrocyte distribution wid th ratioOrdered By: Elisa Narvaez on 04-24-2025 Erythrocyte distribution width (RBC) [Ratio] 14.4 % 11.6-14.6 [facility] Erythrocyte distribution wid th standard deviationOrdered By: Elisa Narvaez on 04-24-2025 Erythrocyte distribution width (RBC) [Ratio] 52.8 fl High 35.1-43.9 [facility] Glomerular filtration rate ( GFR) estimation/1.73 sq m using serum, plasma, or whole bOrdered By: Elisa Narvaez on 04-24-2025 GFR/1.73 sq M.predicted among non-blacks MDRD (S/P/Bld) [Vol rate/Area] 79 mL/min/{1.73_m2} >60 [facility] Comment on above: mL/min/1.73m2 CKD-EP I Creatinine Equation (2020) Hematocrit Auto (Bld) [Volum e fraction]Ordered By: Elisa Narvaez on 04-24-2025 Hematocrit (Bld) [Volume fraction] 38.5 % Low 40-54 [facility] Hemoglobin measurementOrdere d By: Elisa Narvaez on 04-24-2025 Hemoglobin (Bld) [Mass/Vol] 12.4 g/dL Low 13.0-16.5 [facility] MCV (mean corpuscular volume ) determinationOrdered By: Elisa Narvaez on 04-24-2025 MCV (RBC) [Entitic vol] 100.5 fL High 80-94 [facility] Mean corpuscular hemoglobin (MCH) determinationOrdered By: Elisa Narvaez on 04-24-2025 MCH (RBC) [Entitic mass] 32.4 pg High 27.0-32.0 [facility] Mean corpuscular hemoglobin concentration (MCHC) determinationOrdered By: Elisa Narvaez on 04-24-2025 MCHC (RBC) [Mass/Vol] 32.2 g/dL 32-36 [facility] Mean platelet volume determi nationOrdered By: Elisa Narvaez on 04-24-2025 Platelet mean volume (Bld) [Entitic vol] 11.5 fL 6.2-12.0 [facility] Platelet countOrdered By: Lino Narvaez on 04-24-2025 Platelets (Bld) [#/Vol] 125 10*3/uL Low 150-450 [facility] Potassium measurement (mass/ volume)Ordered By: Elisa Narvaez on 04-24-2025 Potassium (Unsp spec) [Mass/Vol] 4.4 mmol/L 3.3-5.1 [facility] RBC Auto (Bld) [#/Vol]Ordere d By: Elisa Narvaez on 04-24-2025 RBC (Bld) [#/Vol] 3.83 10*6/uL Low 4.6-6.2 [facility] Serum creatinine measurement (mass/volume)Ordered By: Elisa Narvaez on 04-24-2025 Creatinine [Mass/Vol] 1.01 mg/dL 0.70-1.20 [facility] Serum glucose measurement (m ass/volume)Ordered By: Elisa Narvaez on 04-24-2025 Glucose [Mass/Vol] 129 mg/dL High 70-99 [facility] Serum or plasma calcium carol urement (mass/volume)Ordered By: Elisa Narvaez on 04-24-2025 Calcium [Mass/Vol] 8.7 mg/dL 7.6-11.0 [facility] Serum or plasma urea nitroge n measurement (mass/volume)Ordered By: Elisa Narvaez on 04-24-2025 Urea nitrogen [Mass/Vol] 18 mg/dL 4-19 [facility] Sodium levelOrdered By: Alden Narvaez on 04-24-2025 Sodium [Moles/Vol] 135 mmol/L 133-145 [facility] White blood cell (WBC) count Ordered By: Elisa Narvaez on 04-24-2025 WBC (Bld) [#/Vol] 5.5 10*3/uL 4.4-11.0 [facility] Ammoniaon 04-12-2025 Ammonia (P) [Moles/Vol] 22.3 umol/L Normal 16-60 [facility] Comment on above: Order Comment: 302 Performed By: #### L 503.5510 #### [facility] [address] [place], [place] [address] [place], [place], [id number] Venous blood ammonia measure mentOrdered By: Elisa Narvaez on 04-12-2025 Ammonia (P) [Moles/Vol] 22.3 umol/L [facility] Ammoniaon 03-15-2025 Ammonia (P) [Moles/Vol] 22.5 umol/L Normal [facility] Comment on above: Order Comment: 302 Performed By: #### L 503.5510 #### [facility] [place], [address] Venous blood ammonia measure mentOrdered By: Elisa Narvaez on 03-15-2025 Ammonia (P) [Moles/Vol] 22.5 umol/L [facility] Absolute lymphocyte countOrd ered By: Elisa Narvaez on 03-11-2025 Lymphocytes Auto (Unsp spec) [#/Vol] 0.73 10*3/uL Low 0.83-4.51 [facility] Absolute neutrophil countOrd ered By: Elisa Narvaez on 03-11-2025 Neutrophils (Bld) [#/Vol] 4.8 10*3/uL 2.0-7.7 [facility] Anion gap in Serum or Plasma Ordered By: Elisa Narvaez on 03-11-2025 Anion gap [Moles/Vol] 9 mmol/L 5-15 [facility] Automated lymphocyte count a s percentage of total leukocytesOrdered By: Elisa Narvaez on 03-11-2025 Lymphocytes/100 WBC Auto (Unsp spec) 11.6 % Low 19-41 [facility] BUN/creatinine ratioOrdered By: Elisa Narvaez on 03-11-2025 Urea nitrogen/Creatinine [Mass ratio] 17.9 mg/mg 10-20 [facility] Basophil percentageOrdered B y: Elisa Narvaez on 03-11-2025 Basophils/100 WBC (Bld) 0.5 % 0-1 [facility] Bilirubin, totalOrdered By: Elisa Narvaez on 03-11-2025 Bilirubin [Mass/Vol] 0.44 mg/dL 0.00-1.30 [facility] CBC W/Diff, Automatedon Absolute Lymph 0.73 X10 3/uL Low 0.83-4.51 [facility] Comment on above: Order Comment: 302.1 Performed By: #### L 503.5510 #### [facility] [address] [place], [address] Absolute Neut 4.8 X10 3/uL Normal 2.0-7.7 [facility] Comment on above: Order Comment: 302.1 Performed By: #### L 503.5510 #### [facility] [address] [place], [address] Basophils/100 WBC (Bld) 0.5 % Normal 0-1 [facility] Comment on above: Order Comment: 302.1 Performed By: #### L 503.5510 #### [facility] [address] [place], [address] Eosinophils/100 WBC (Bld) 4.5 % Normal 0-5 [facility] Comment on above: Order Comment: 302.1 Performed By: #### L 503.5510 #### [facility] [address] [place], [address] Erythrocyte distribution width (RBC) [Ratio] 14.8 % High 11.6-14.6 [facility] Comment on above: Order Comment: 302.1 Performed By: #### L 503.5510 #### [facility] [address] [place], [address] Hematocrit (Bld) [Volume fraction] 37.5 % Low 40-54 [facility] Comment on above: Order Comment: 302.1 Performed By: #### L 503.5510 #### [facility] [address] [place], [address] Hemoglobin (Bld) [Mass/Vol] 12.0 g/dL Low 13.0-16.5 [facility] Comment on above: Order Comment: 302.1 Performed By: #### L 503.5510 #### [facility] [address] [place], [address] IG% 0.600 Normal 0.0-0.9 [facility] Comment on above: Order Comment: 302.1 Result Comment: IG% - Immature Granulocytes (promyelocytes, myelocytes and metamyelocytes) > 1% indicates that a LEFT SHIFT is Present. Performed By: #### L 503.5510 #### [facility] [address] [place], [address] Lymphocytes/100 WBC (Bld) 11.6 % Low 19-41 [facility] Comment on above: Order Comment: 302.1 Performed By: #### L 503.5510 #### [facility] [address] [place], [address] MCH (RBC) [Entitic mass] 32.2 pg High 27.0-32.0 [facility] Comment on above: Order Comment: 302.1 Performed By: #### L 503.5510 #### [facility] [address] [place], [address] MCHC (RBC) [Mass/Vol] 32.0 g/dL Normal 32-36 [facility] Comment on above: Order Comment: 302.1 Performed By: #### L 503.5510 #### [facility] [address] [place], [address] MCV (RBC) [Entitic vol] 100.5 fL High 80-94 [facility] Comment on above: Order Comment: 302.1 Performed By: #### L 503.5510 #### [facility] [address] [place], [address] Monocytes/100 WBC (Bld) 6.8 % Normal 0-10 [facility] Comment on above: Order Comment: 302.1 Performed By: #### L 503.5510 #### [facility] [address] [place], [address] Neutrophils/100 WBC (Bld) 76.0 % High 47-70 [facility] Comment on above: Order Comment: 302.1 Performed By: #### L 503.5510 #### [facility] [address] [place], [address] Nucleated RBC (Bld) [#/Vol] 0 10*3/uL Normal 0-5 [facility] Comment on above: Order Comment: 302.1 Performed By: #### L 503.5510 #### [facility] [address] [place], [address] Platelet mean volume (Bld) [Entitic vol] 11.6 fL Normal 6.2-12.0 [facility] Comment on above: Order Comment: 302.1 Performed By: #### L 503.5510 #### [facility] [address] [place], [address] Platelets (Bld) [#/Vol] 135 10*3/uL Low 150-450 [facility] Comment on above: Order Comment: 302.1 Performed By: #### L 503.5510 #### [facility] [address] [place], [address] RBC (Bld) [#/Vol] 3.73 10*6/uL Low 4.6-6.2 [facility] Comment on above: Order Comment: 302.1 Performed By: #### L 503.5510 #### [facility] [address] [place], [address] RDW SD 55.4 fl High 35.1-43.9 [facility] Comment on above: Order Comment: 302.1 Performed By: #### L 503.5510 #### [facility] [address] [place], [address] WBC (Bld) [#/Vol] 6.3 10*3/uL Normal 4.4-11.0 [facility] Comment on above: Order Comment: 302.1 Performed By: #### L 503.5510 #### [facility] [address] [place], [address] Carbon dioxide, total [Moles /volume] in Central venous bloodOrdered By: Elisa Narvaez on 03-11-2025 CO2 [Moles/Vol] 17.5 mmol/L Low 21.0-32.0 [facility] Chloride assayOrdered By: Lino Narvaez on 03-11-2025 Chloride [Moles/Vol] 111 mmol/L High 98-108 [facility] Comprehensive Metabolic Prof ilon 03-11-2025 Albumin [Mass/Vol] 3.6 g/dL Normal 3.4-4.8 [facility] Comment on above: Order Comment: 302.1 Performed By: #### L 503.5510 #### [facility] [address] [place], [address] Albumin/Globulin [Mass ratio] 1.2 {ratio} Normal 0.9-2.4 [facility] Comment on above: Order Comment: 302.1 Performed By: #### L 503.5510 #### [facility] [address] [place], [address] ALK PHOS 71 U/L Normal 40-129 [facility] Comment on above: Order Comment: 302.1 Performed By: #### L 503.5510 #### [facility] [address] [place], [address] ALT [Catalytic activity/Vol] 5 U/L Normal <=46 [facility] Comment on above: Order Comment: 302.1 Performed By: #### L 503.5510 #### [facility] [address] [place], [address] AST [Catalytic activity/Vol] 15 U/L Normal <=37 [facility] Comment on above: Order Comment: 302.1 Performed By: #### L 503.5510 #### [facility] [address] [place], [address] Bilirubin [Mass/Vol] 0.44 mg/dL Normal 0.00-1.30 [facility] Comment on above: Order Comment: 302.1 Performed By: #### L 503.5510 #### [facility] [address] [place], [address] BUN/CRE 17.9 RATIO Normal 10-20 [facility] Comment on above: Order Comment: 302.1 Performed By: #### L 503.5510 #### [facility] [address] [place], [address] Calcium [Mass/Vol] 8.0 mg/dL Normal 7.6-11.0 [facility] Comment on above: Order Comment: 302.1 Performed By: #### L 503.5510 #### [facility] [address] [place], [address] Chloride [Moles/Vol] 111 mmol/L High 98-108 [facility] Comment on above: Order Comment: 302.1 Performed By: #### L 503.5510 #### [facility] [address] [place], [address] CO2 [Moles/Vol] 17.5 mmol/L Low 21.0-32.0 [facility] Comment on above: Order Comment: 302.1 Performed By: #### L 503.5510 #### [facility] [address] [place], [address] Creatinine [Mass/Vol] 0.99 mg/dL Normal 0.70-1.20 [facility] Comment on above: Order Comment: 302.1 Performed By: #### L 503.5510 #### [facility] [address] [place], [address] GAP 9 Normal 5-15 [facility] Comment on above: Order Comment: 302.1 Performed By: #### L 503.5510 #### [facility] [address] [place], [address] GFR/1.73 sq M.predicted among non-blacks MDRD (S/P/Bld) [Vol rate/Area] 81 mL/min/{1.73_m2} Normal >60 [facility] Comment on above: Order Comment: 302.1 Result Comment: mL/m in/1.73m2 CKD-EPI Creatinine Equation (2020) Performed By: #### L 503.5510 #### [facility] [address] [place], [address] Globulin (S) [Mass/Vol] 3.1 g/dL Normal 2.2-4.2 [facility] Comment on above: Order Comment: 302.1 Performed By: #### L 503.5510 #### [facility] [address] [place], [address] Glucose [Mass/Vol] 99 mg/dL Normal 70-99 [facility] Comment on above: Order Comment: 302.1 Performed By: #### L 503.5510 #### [facility] [address] [place], [address] Potassium [Moles/Vol] 4.0 mmol/L Normal 3.3-5.1 [facility] Comment on above: Order Comment: 302.1 Performed By: #### L 503.5510 #### [facility] [address] [place], [address] Sodium [Moles/Vol] 137 mmol/L Normal 133-145 [facility] Comment on above: Order Comment: 302.1 Performed By: #### L 503.5510 #### [facility] [address] [place], [address] T PROT 6.7 g/dL Normal 5.9-8.4 [facility] Comment on above: Order Comment: 302.1 Performed By: #### L 503.5510 #### [facility] [address] [place], [address] Urea nitrogen [Mass/Vol] 18 mg/dL Normal 4-19 [facility] Comment on above: Order Comment: 302.1 Performed By: #### L 503.5510 #### [facility] [address] [place], [address] Eosinophil percentageOrdered By: Elisa Narvaez on 03-11-2025 Eosinophils/100 WBC (Bld) 4.5 % 0-5 [facility] Erythrocyte distribution wid th ratioOrdered By: Elisa Narvaez on 03-11-2025 Erythrocyte distribution width (RBC) [Ratio] 14.8 % High 11.6-14.6 [facility] Erythrocyte distribution wid th standard deviationOrdered By: Elisaely Narvaez on 03-11-2025 Erythrocyte distribution width (RBC) [Ratio] 55.4 fl High 35.1-43.9 [facility] Glomerular filtration rate ( GFR) estimation/1.73 sq m using serum, plasma, or whole bOrdered By: Elisa Narvaez on 03-11-2025 GFR/1.73 sq M.predicted among non-blacks MDRD (S/P/Bld) [Vol rate/Area] 81 mL/min/{1.73_m2} >60 [facility] Comment on above: mL/min/1.73m2 CKD-EP I Creatinine Equation (2020) Hematocrit Auto (Bld) [Volum e fraction]Ordered By: Elisa Narvaez on 03-11-2025 Hematocrit (Bld) [Volume fraction] 37.5 % Low 40-54 [facility] Hemoglobin measurementOrdere d By: Elisa Narvaez on 03-11-2025 Hemoglobin (Bld) [Mass/Vol] 12.0 g/dL Low 13.0-16.5 [facility] Immature granulocytes/100 WB C Auto (Bld)Ordered By: Elisa Narvaez on 03-11-2025 Immature granulocytes/100 WBC (Bld) 0.600 % 0.0-0.9 [facility] Comment on above: IG% - Immature Granu locytes (promyelocytes, myelocytes and metamyelocytes) > 1% indicates that a LEFT SHIFT is Present. International normalized rat io (INR) calculationOrdered By: Elisa Narvaez on 03-11-2025 INR Coag (Bld) [Relative time] 1.4 {INR} [facility] - Chemistry and C hemistry - challengeOrdered By: Elisa Narvaez on 03-11-2025 AST [Catalytic activity/Vol] 15 U/L <38 [facility] MCV (mean corpuscular volume ) determinationOrdered By: Elisa Narvaez on 03-11-2025 MCV (RBC) [Entitic vol] 100.5 fL High 80-94 [facility] Mean corpuscular hemoglobin (MCH) determinationOrdered By: Elisa Narvaez on 03-11-2025 MCH (RBC) [Entitic mass] 32.2 pg High 27.0-32.0 [facility] Mean corpuscular hemoglobin concentration (MCHC) determinationOrdered By: Elisa Narvaez on 03-11-2025 MCHC (RBC) [Mass/Vol] 32.0 g/dL 32-36 [facility] Mean platelet volume determi nationOrdered By: Elisa Narvaez on 03-11-2025 Platelet mean volume (Bld) [Entitic vol] 11.6 fL 6.2-12.0 [facility] Monocyte percentageOrdered B y: Elisa Narvaez on 03-11-2025 Monocytes/100 WBC (Bld) 6.8 % 0-10 [facility] Neutrophil percentageOrdered By: Elisa Narvaez on 03-11-2025 Neutrophils/100 WBC (Bld) 76.0 % High 47-70 [facility] Nucleated red blood cell per centageOrdered By: Elisa Narvaez on 03-11-2025 Nucleated RBC/100 WBC (Bld) [Ratio] 0 % 0-5 [facility] Platelet countOrdered By: Lino Narvaez on 03-11-2025 Platelets (Bld) [#/Vol] 135 10*3/uL Low 150-450 [facility] Potassium measurement (mass/ volume)Ordered By: Elisa Narvaez on 03-11-2025 Potassium (Unsp spec) [Mass/Vol] 4.0 mmol/L 3.3-5.1 [facility] Prothrombin Time w/INRon INR Coag (PPP) [Relative time] 1.4 {INR} Normal [facility] Comment on above: Order Comment: 302.1 Performed By: #### L 503.5510 #### [facility] [address] [place], [place], 337241 PT Coag (PPP) [Time] 17.7 s High 11.7-14.9 [facility] Comment on above: Order Comment: 302.1 Performed By: #### L 503.5510 #### [facility] [address] [place], [place], [address] Prothrombin timeOrdered By: Elisa Narvaez on 03-11-2025 PT Coag (PPP) [Time] 17.7 s High 11.7-14.9 [facility] RBC Auto (Bld) [#/Vol]Ordere d By: Elisa Narvaez on 03-11-2025 RBC (Bld) [#/Vol] 3.73 10*6/uL Low 4.6-6.2 [facility] Serum creatinine measurement (mass/volume)Ordered By: Elisa Narvaez on 03-11-2025 Creatinine [Mass/Vol] 0.99 mg/dL 0.70-1.20 [facility] Serum globulin measurementOr dered By: Elisa Narvaez on 03-11-2025 Globulin (S) [Mass/Vol] 3.1 g/dL 2.2-4.2 [facility] Serum glucose measurement (m ass/volume)Ordered By: Elisa Narvaez on 03-11-2025 Glucose [Mass/Vol] 99 mg/dL 70-99 [facility] Serum or plasma alanine gary otransferase (ALT) measurementOrdered By: Elisa Narvaez on 03-11-2025 ALT [Catalytic activity/Vol] 5 U/L <47 [facility] Serum or plasma albumin carol urement (mass/volume)Ordered By: Elisa Narvaez on 03-11-2025 Albumin [Mass/Vol] 3.6 g/dL 3.4-4.8 [facility] Serum or plasma albumin/glob ulin mass ratioOrdered By: Elisa Narvaez on 03-11-2025 Albumin/Globulin [Mass ratio] 1.2 {ratio} 0.9-2.4 [facility] Serum or plasma alkaline cristo sphatase measurementOrdered By: Elisa Narvaez on 03-11-2025 ALP [Catalytic activity/Vol] 71 U/L 40-129 [facility] Serum or plasma calcium carol urement (mass/volume)Ordered By: Elisa Narvaez on 03-11-2025 Calcium [Mass/Vol] 8.0 mg/dL 7.6-11.0 [facility] Serum or plasma urea nitroge n measurement (mass/volume)Ordered By: Elisa Narvaez on 03-11-2025 Urea nitrogen [Mass/Vol] 18 mg/dL 4-19 [facility] Sodium levelOrdered By: Alden Narvaez on 03-11-2025 Sodium [Moles/Vol] 137 mmol/L 133-145 [facility] Total proteinOrdered By: Dante Narvaez on 03-11-2025 Protein [Mass/Vol] 6.7 g/dL 5.9-8.4 [facility] White blood cell (WBC) count Ordered By: Elisa Narvaez on 03-11-2025 WBC (Bld) [#/Vol] 6.3 10*3/uL 4.4-11.0 [facility] CNOVSPon 03-06-2025 CNOVSP Visit (SP) Office (H EMAWS) -- STEPH BAUMANN ([id number]) 1950 M Date Time Provider Department 03/06/25 10:10 AM JONNATHAN KOTHARIGILBERT During your visit today, we recorded the following information about you: Temperature Pulse Blood pressure 97.5 degrees 57/minute 98/52 Jonnathan Kothari, 03/06/2025 11:18 AM Signed Oncologic problem(s): 1) [...] biopsy on 11/12/2021. All 4 cores demonstrated [place] grade 7, 2 of the cores were [...] for cirrhosis. Here today with POA from [place] (daughter's friend). Visits him every 2 weeks. Diagnosed with Parkinsons in April. Requires wheelchair. Was independent prior to that. Living [facility]. 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 Warfarin since. Cardiomyopathy, unspecified (HCC) Chronic combined systolic and diastolic congestive heart failure (HCC) Chronic kidney disease, stage 3b (HCC) Chronic respiratory failure with hypoxia (HCC) Epilepsy, unspecified, not intractable, without status epilepticus (HCC) Esophageal reflux Essential and other specified forms of tremor 0 (more content not included)... Normal [facility] PSA SerPl-mCncon 03-06-2025 Prostate specific Ag [Mass/Vol] ng/mL Normal <2.60 [facility] Comment on above: Order Comment: Speci men Type: BLOOD SPECIMENOrdering Facility: [facility] Address: [address] [place] [address] Result Comment: Tota l PSA test methodology used is the Electrochemiluminescence Immunoassay by [employer]. Total PSA values by differing methodologies cannot be interchanged. Performed By: #### 2 857-1 ####[facility] LABCLIA [id number] [facility] [id number] [place] [address] [place] Ammoniaon 02-15-2025 Ammonia (P) [Moles/Vol] 20.8 umol/L Normal [facility] Comment on above: Performed By: #### L 503.5510 #### [facility] [address] [place], [place], [id number] Venous blood ammonia measure mentOrdered By: Elisa Narvaez on 02-15-2025 Ammonia (P) [Moles/Vol] 20.8 umol/L -60 [facility] CNPNon 02-14-2025 CNPN Telephone (DDQ) -- STEPH BAUMANN ([id number]) 1950 M Date Time Provider Department 02/14/25 MERLIN LOREDO DDQ During your visit today, we recorded the following information about you: Paulette Nguyen 02/14/2025 3:02 PM Signed Patient called to discuss his most recent lab results, she would like a rt call. Merlin Loredo MD 02/15/2025 1:12 PM Signed Osas, Please let Bob know I have reviewed the lab tests and liver tests are normal. Thee were no surprises. We discussed other test results in office. Let me know if she has additional questions. MD Chetan Walters [place], TISH 02/15/2025 2:50 PM Signed Nurse called vik Rojas. She confirmed pt name and Nurse relayed update to Bob, Bob is pleased w/ the update. She had [...] Noted R (more content not included)... Normal [facility] CBC W Auto Differential pane l (Bld)on 02-13-2025 Basophils (Bld) [#/Vol] 0.04 10*3/uL Normal <0.11 [facility] Comment on above: Order Comment: Speci men Type: BLOOD SPECIMENOrdering Facility: [facility] Address: [address] [place] [address] Performed By: #### 5 7021-8 ####[facility] LABIA [id number] [place] [address] [place] Basophils/100 WBC (Bld) 0.7 % Normal [facility] Comment on above: Order Comment: Speci men Type: BLOOD SPECIMENOrdering Facility: [facility] Address: [address] [place] [address] Performed By: #### 5 7021-8 ####[facility] LABCLIA [id number] [place] [address] [place] Differential cell count method Nom (Bld) Auto Normal [facility] Comment on above: Order Comment: Speci men Type: BLOOD SPECIMENOrdering Facility: [facility] Address: [address] [place] [address] Performed By: #### 5 7021-8 ####[facility] LABIA [id number] [place] [address] [place] Eosinophils (Bld) [#/Vol] 0.27 10*3/uL Normal <0.46 [facility] Comment on above: Order Comment: Speci men Type: BLOOD SPECIMENOrdering Facility: [facility] Address: [address] [place] [address] Performed By: #### 5 7021-8 ####[facility] LABCLIA [id number] [place] [address] [place] Eosinophils/100 WBC (Bld) 4.5 % Normal [facility] Comment on above: Order Comment: Speci men Type: BLOOD SPECIMENOrdering Facility: [facility] Address: [address] [place] [address] Performed By: #### 5 7021-8 ####[facility] LABCLIA [id number] [place] [address] [place] Erythrocyte distribution width (RBC) [Ratio] 14.6 % Normal 11.5-15.0 [facility] Comment on above: Order Comment: Speci men Type: BLOOD SPECIMENOrdering Facility: [facility] Address: [address] [place] [address] Performed By: #### 5 7021-8 ####[facility] LABCLIA [id number] [address] [place] Hematocrit (Bld) [Volume fraction] 38.3 % Low 39.0-51.0 [facility] Comment on above: Order Comment: Speci men Type: BLOOD SPECIMENOrdering Facility: [facility] Address: [address] [place] [address] Performed By: #### 5 7021-8 ####[facility] LABCLIA [id number] [place] [address] [place] Hemoglobin (Bld) [Mass/Vol] 12.3 g/dL Low 13.0-17.0 [facility] Comment on above: Order Comment: Speci men Type: BLOOD SPECIMENOrdering Facility: [facility] Address: [address] [place] [address] Performed By: #### 5 7021-8 ####[facility] LABCLIA [id number] [place] [address] [place] Immature granulocytes (Bld) [#/Vol] 0.05 10*3/uL Normal <0.10 [facility] Comment on above: Order Comment: Speci men Type: BLOOD SPECIMENOrdering Facility: [facility] Address: [address] [place] [address] Performed By: #### 5 7021-8 ####[facility] LABCLIA [id number] [place] [address] [place] Immature granulocytes/100 WBC (Bld) 0.8 % Normal [facility] Comment on above: Order Comment: Speci men Type: BLOOD SPECIMENOrdering Facility: [facility] Address: [address] [place] [address] Performed By: #### 5 7021-8 ####[facility] LABIA [id number] [place] [address] [place] Lymphocytes (Bld) [#/Vol] 0.58 10*3/uL Low 1.00-4.00 [facility] Comment on above: Order Comment: Speci men Type: BLOOD SPECIMENOrdering Facility: [facility] Address: [address] [place] [address] Performed By: #### 5 7021-8 ####[facility] LABCLIA [id number] [place] [address] [place] Lymphocytes/100 WBC (Bld) 9.6 % Normal [facility] Comment on above: Order Comment: Speci men Type: BLOOD SPECIMENOrdering Facility: [facility] Address: [address] [place] [address] Performed By: #### 5 7021-8 ####[facility] LABCLIA [id number] [place] [address] [place] MCH (RBC) [Entitic mass] 31.7 pg Normal 26.0-34.0 [facility] Comment on above: Order Comment: Speci men Type: BLOOD SPECIMENOrdering Facility: [facility] Address: [address] [place] [address] Performed By: #### 5 7021-8 ####[facility] LABCLIA [id number] [place] [address] [place] MCHC (RBC) [Mass/Vol] 32.1 g/dL Normal 30.5-36.0 [facility] Comment on above: Order Comment: Speci men Type: BLOOD SPECIMENOrdering Facility: [facility] Address: [address] [place] [address] Performed By: #### 5 7021-8 ####[facility] LABCLIA [id number] [place] [address] [place] MCV (RBC) [Entitic vol] 98.7 fL Normal 80.0-100.0 [facility] Comment on above: Order Comment: Speci men Type: BLOOD SPECIMENOrdering Facility: [facility] Address: [address] [place] [address] Performed By: #### 5 7021-8 ####[facility] LABIA [id number] [place] [address] [place] Monocytes (Bld) [#/Vol] 0.36 10*3/uL Normal <0.87 [facility] Comment on above: Order Comment: Speci men Type: BLOOD SPECIMENOrdering Facility: [facility] Address: [address] [place] [address] Performed By: #### 5 7021-8 ####[facility] LABCLIA [id number] [place] [address] [place] Monocytes/100 WBC (Bld) 6.0 % Normal [facility] Comment on above: Order Comment: Speci men Type: BLOOD SPECIMENOrdering Facility: [facility] Address: [address] [place] [address] Performed By: #### 5 7021-8 ####[facility] LABCLIA [id number] [place] [address] [place] Neutrophils (Bld) [#/Vol] 4.72 10*3/uL Normal 1.45-7.50 [facility] Comment on above: Order Comment: Speci men Type: BLOOD SPECIMENOrdering Facility: [facility] Address: [address] [place] [address] Performed By: #### 5 7021-8 ####[facility] LABCLIA [id number] [place] [address] [place] Neutrophils/100 WBC (Bld) 78.4 % Normal [facility] Comment on above: Order Comment: Speci men Type: BLOOD SPECIMENOrdering Facility: [facility] Address: [address] [place] [address] Performed By: #### 5 7021-8 ####[facility] LABCLIA [id number] [place] [address] [place] Nucleated RBC (Bld) [#/Vol] 10*3/uL Normal <0.01 [facility] Comment on above: Order Comment: Speci men Type: BLOOD SPECIMENOrdering Facility: [facility] Address: [address] [place] [address] Performed By: #### 5 7021-8 ####[facility] LABCLIA [id number] [place] [id number] [place] Nucleated RBC/100 WBC (Bld) [Ratio] 0.0 /100 WBC Normal [facility] Comment on above: Order Comment: Speci men Type: BLOOD SPECIMENOrdering Facility: [facility] Address: [address] [place] [address] Performed By: #### 5 7021-8 ####[facility] LABCLIA [id number] [place] [address] [place] Platelet mean volume (Bld) [Entitic vol] 12.1 fL Normal 9.0-12.7 [facility] Comment on above: Order Comment: Speci men Type: BLOOD SPECIMENOrdering Facility: [facility] Address: [address] [place] [address] Performed By: #### 5 7021-8 ####[facility] LABIA [id number] [place] [address] [place] Platelets (Bld) [#/Vol] 135 10*3/uL Low 150-400 [facility] Comment on above: Order Comment: Speci men Type: BLOOD SPECIMENOrdering Facility: [facility] Address: [address] [place] [address] Performed By: #### 5 7021-8 ####[facility] [id number] [place] [address] [place] RBC (Bld) [#/Vol] 3.88 10*6/uL Low 4.20-6.00 [facility] Comment on above: Order Comment: Speci men Type: BLOOD SPECIMENOrdering Facility: [facility] Address: [address] [place] [address] Performed By: #### 5 7021-8 ####[facility] [id number] [place] [id number] [place] WBC (Bld) [#/Vol] 6.02 10*3/uL Normal 3.70-11.00 [facility] Comment on above: Order Comment: Speci men Type: BLOOD SPECIMENOrdering Facility: [facility] Address: [address] [place] [address] Performed By: #### 5 7021-8 ####[facility] [id number] [place] [id number] [place] CNOVon 02-13-2025 CNOV Office Visit (GASTA5 ) -- STEPH BAUMANN ([id number]) 1950 M Date Time Provider Department 02/13/25 2:15 PM [...] failure to thrive 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 [facility] current use of insulin (HCC) Metabolic encephalopathy [...] likely due (more content not included)... Normal [facility] Comprehensive metabolic 2000 panelon 02-13-2025 Albumin [Mass/Vol] 4.1 g/dL Normal 3.9-4.9 [facility] Comment on above: Order Comment: Ella rosenberg Type: BLOOD SPECIMENOrdering Facility: [facility] Address: [address] [place] [address] Performed By: #### 2 4323-8 ####[facility] LABCLIA [id number] [place] [address] [place] ALP [Catalytic activity/Vol] 70 U/L Normal 38-113 [facility] Comment on above: Order Comment: Ella rosenberg Type: BLOOD SPECIMENOrdering Facility: [facility] Address: [address] [place] [address] Performed By: #### 2 4323-8 ####[facility] LABCLIA [id number] [place] [address] [place] ALT [Catalytic activity/Vol] 7 U/L Low 10-54 [facility] Comment on above: Order Comment: Speci men Type: BLOOD SPECIMENOrdering Facility: [facility] Address: [address] [place] [address] Performed By: #### 2 4323-8 ####[facility] LABCLIA [id number] [place] [address] [place] Anion gap [Moles/Vol] 8 mmol/L Normal 8-15 [facility] Comment on above: Order Comment: Speci men Type: BLOOD SPECIMENOrdering Facility: [facility] Address: [address] [place], [place] [address] Performed By: #### 2 4323-8 ####[facility] LABCLIA [id number] [place] [id number] [place] AST [Catalytic activity/Vol] 15 U/L Normal 14-40 [facility] Comment on above: Order Comment: Speci men Type: BLOOD SPECIMENOrdering Facility: [facility] Address: [address] [place] [address] Performed By: #### 2 4323-8 ####[facility] LABCLIA [id number] [place] [address] [place] Bilirubin [Mass/Vol] 0.3 mg/dL Normal 0.2-1.3 [facility] Comment on above: Order Comment: Speci men Type: BLOOD SPECIMENOrdering Facility: [facility] Address: [address] [place] [address] Performed By: #### 2 4323-8 ####[facility] LABCLIA [id number] [place] [address] [place] Calcium [Mass/Vol] 9.0 mg/dL Normal 8.5-10.2 [facility] Comment on above: Order Comment: Speci men Type: BLOOD SPECIMENOrdering Facility: [facility] Address: [address] [place] [address] Performed By: #### 2 4323-8 ####[facility] LABCLIA [id number] [place] [id number] [place] Chloride [Moles/Vol] 106 mmol/L Normal 98-107 [facility] Comment on above: Order Comment: Speci men Type: BLOOD SPECIMENOrdering Facility: [facility] Address: [address] [place], [place] [address] Performed By: #### 2 4323-8 ####[facility] LABCLIA [id number] [place] [id number] [place] CO2 [Moles/Vol] 22 mmol/L Normal 22-30 [facility] Comment on above: Order Comment: Speci men Type: BLOOD SPECIMENOrdering Facility: [facility] Address: [address] [place] [address] Performed By: #### 2 4323-8 ####[facility] LABCLIA [id number] [place] [id number] [place] Creatinine [Mass/Vol] 0.96 mg/dL Normal 0.73-1.22 [facility] Comment on above: Order Comment: Speci men Type: BLOOD SPECIMENOrdering Facility: [facility] Address: [address] [place] [address] Performed By: #### 2 4323-8 ####[facility] LABIA [id number] [address] [place] Creatinine and Glomerular filtration rate.predicted panel (S/P/Bld) 84 mL/min/1.73m??? Normal >=60 [facility] Comment on above: Order Comment: Speci men Type: BLOOD SPECIMENOrdering Facility: [facility] Address: [address] [place] [address] Result Comment: Rossy mated Glomerular Filtration Rate [...] accurately reflect actual GFR. Performed By: #### 2 4323-8 ####[facility] LABCLIA [id number] [place] [id number] [place] Glucose [Mass/Vol] 138 mg/dL High 74-99 [facility] Comment on above: Order Comment: Speci men Type: BLOOD SPECIMENOrdering Facility: [facility] Address: [address] [place] [address] Result Comment: The [place] Diabetes Association (ADA) provides guidance for cutoff [...] Standards of Medical Care in Diabetes 2016, [place] [employer] Association. Diabetes Care. 2016.39(Suppl 1). Performed By: #### 2 4323-8 ####[facility] LABIA [id number] [place] [address] [place] Potassium [Moles/Vol] 4.1 mmol/L Normal 3.7-5.1 [facility] Comment on above: Order Comment: Speci men Type: BLOOD SPECIMENOrdering Facility: [facility] Address: [address] [place] [address] Performed By: #### 2 4323-8 ####[facility] [id number] [place] [address] [place] Protein [Mass/Vol] 6.8 g/dL Normal 6.3-8.0 [facility] Comment on above: Order Comment: Speci men Type: BLOOD SPECIMENOrdering Facility: [facility] Address: [address] [place] [address] Performed By: #### 2 4323-8 ####[facility] LABIA [id number] [place] [address] [place] Sodium [Moles/Vol] 136 mmol/L Normal 136-144 [facility] Comment on above: Order Comment: Speci men Type: BLOOD SPECIMENOrdering Facility: [facility] Address: [address] [place] [address] Performed By: #### 2 4323-8 ####[facility] [id number] [place] [id number] [place] Urea nitrogen [Mass/Vol] 22 mg/dL Normal 9-24 [facility] Comment on above: Order Comment: Speci men Type: BLOOD SPECIMENOrdering Facility: [facility] Address: [address] [place] [address] Performed By: #### 2 4323-8 ####[facility] [id number] [place] [id number] [place] PT panel Coag (PPP)on 2024 INR Coag (PPP) [Relative time] 1.3 {INR} Normal 0.9-1.3 [facility] Comment on above: Order Comment: Speci men Type: BLOOD SPECIMENOrdering Facility: [facility] Address: [address] [place] [address] Result Comment: Dorothy min K Antagonist (VKA) Therapeutic Range: INR 2 to 3 (Target INR of 2.5) Note: For patients treated with VKA drugs, such as warfarin, the [place] [employer] 2012 Guideline recommends [...] GH, et al. Chest 2012, 141:7S-47S Pily RA et al. JACC 2017, 70: 252-289 Performed By: #### 3 4528-0 ####[facility] [id number] [place] [id number] [place] PT Coag (PPP) [Time] 14.1 s High 9.7-13.0 [facility] Comment on above: Order Comment: Speci men Type: BLOOD SPECIMENOrdering Facility: [facility] Address: [address] [place] [address] Performed By: #### 3 4528-0 ####[facility] LABCLIA [id number] [employer] [id number] [place] [address] [place] US ABD RIGHT [...] liver, not overtly cirrhotic. No mass. Cholelithiasis. Ruching Machine Operator: LAVINIA Transcribe Date/Time: Feb 13 2025 2:12P Dictated by : MADISON HDEZ MD This examination was interpreted and the report reviewed and electronically signed by: MADISON HDEZ MD on Feb 13 2025 2:16PM EST [id number] Normal [facility] US Abdomen RUQon 02-13-2025 IMPRESSION: Pancreas and portions of left hepatic lobe are obscured. Unremarkable appearance of the liver, not overtly cirrhotic. No mass. Cholelithiasis. Ruching Machine Operator: LAVINIA Transcribe Date/Time: Feb 13 2025 2:12P Dictated by : MADISON HDEZ MD This examination was interpreted and the report reviewed and electronically signed by: MADISON HDEZ MD on Feb 13 2025 2:16PM [facility] DIVISION OF RADIOLOGY * * *Final Report* [...] 13 2025 1:50PM TARA 1032 - US [facility] RIGHT UPPER QUADRANT / PROCEDURE REASON: Liver [...] liver, not overtly cirrhotic. No mass. Cholelithiasis. Ruching Machine Operator: LAVINIA Transcribe Date/Time: Feb 13 2025 2:12P Dictated by : MADISON HDEZ MD This examination was interpreted and the report reviewed and electronically signed by: MADISON HDEZ MD on Feb 13 2025 2:16PM EST [facility] Radiology Study observation (narrative) [facility] US Abdomen RUQOrdered By: Brooke lacey Provider on 02-13-2025 [facility] Neurology Visit Reporton Neurology Visit Report [facility] [address] [facility], [address] [place] [address] OFFICE VISIT Date of Service: 01/24/25 MR#: [id number] Acct: [id number] Name: STEPH BAUMANN (RICK) Rep #: [id number] : 1950 Provider: Dr. Dwayne iniguez MD Age/Sex: 74/M Location: [facility] [place]. Status: Signed HPI HPI Chief Complaint: Details: [...] was of some benefit. 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 He has a several year history of [...] Normal basal (more content not included)... Normal [facility] Ammoniaon 01-18-2025 Ammonia (P) [Mass/Vol] ug/dL Low - [facility] Comment on above: Order Comment: 302-1 Performed By: #### L 503.5510 #### [facility] [address] [place] [place], [place], [address] Venous blood ammonia measure mentOrdered By: Elisa Narvaez on 01-18-2025 Ammonia < 10.0 umol/L Low [facility] Venous blood ammonia measurement < 10.0 umol/L Low [facility] Ammoniaon 12-21-2024 Ammonia (P) [Moles/Vol] 22.0 umol/L Normal [facility] Comment on above: Order Comment: 302 Performed By: #### L 503.5510 #### [facility] Laboratory [address] [place], [place], [id number] Venous blood ammonia measure mentOrdered By: Elisa Narvaez on 12-21-2024 Ammonia (P) [Moles/Vol] 22.0 umol/L [facility] Cardiology Visit Reporton Cardiology Visit Report [facility] [address] [place], [place] [address] OFFICE VISIT Date of Service: 12/12/24 MR#: [id number] Acct: [id number] Name: STEPH BAUMANN Rep #: [id number] : 1950 Provider: LON Solomon Age/Sex: 74/M Location: [facility] [place] Status: Signed HPI HPI History of [...] with ascites. He is established with a erp technical lead (Dr. Loredo- [facility]). He has also been diagnosed with prostate cancer and follows with the radiation oncologist here and is on bicalutamide. His last echocardiogram was in November 2020 demonstrating an ejection fraction of 20% with a moderately dilated LV, global hypokinesis and pulmonary systolic pressure of 50 mmHg. He is currently domiciled at [facility] and has been doing quite well. His [...] 98 Intake Visit Reasons: 9 M FU Vp Global Required: No Is patient in pain?: No [...] bisacodyl 10 mg rectal suppository 10 mg WV DAILY PRN constipation 06/21/23 06/19/24 History sennosides [...] QWEEK 06/19/24 5 History mL subcutaneous auto-injector (Bety Pittman) guaifenesin 100 mg/5 mL oral liquid 200 mg PO Q4H PRN 06/19/24 02/0 03/31 History insulin glargine 100 unit/mL (3 8 unit subcut DAILY DIABETES 06/1912/12/24 History mL) subcutaneous pen lactulose 20 gram/30 mL oral 30 g PO TID 06/19/24 12/12/24 Hist ory solution methyl salicylate 15 %-menthol 10 1 applic topical DAILY 06/19/24 0 12/12/24 History % topical cream (Muscle Rub) mineral oil (Fleet Mineral Oil 118 ml WV DAILY PRN 06/19/2412/12 History enema) ondansetron HCl [...] Insulin dependen (more content not included)... Normal [facility] PSA SerPl-mCncon 12-12-2024 Prostate specific Ag [Mass/Vol] ng/mL Normal <2.60 [facility] Comment on above: Order Comment: Speci men Type: BLOOD SPECIMENOrdering Facility: [facility] Address: [address] [place] [address] Result Comment: Tota l PSA test methodology used is the Electrochemiluminescence Immunoassay by [employer]. Total PSA values by differing methodologies cannot be interchanged. Performed By: #### 2 857-1 ####[facility] [id number] [place] [address] [place] Ammoniaon 11-23-2024 Ammonia (P) [Moles/Vol] 28.0 umol/L Normal 11-32 [facility] Comment on above: Order Comment: 302-1 Performed By: #### L 503.5510 #### [facility] Laboratory [address] [place], [place], [address] Venous blood ammonia measure mentOrdered By: Elisa Narvaez on 11-23-2024 Ammonia (P) [Moles/Vol] 28.0 umol/L [facility] Ammoniaon 10-26-2024 Ammonia (P) [Moles/Vol] 17.0 umol/L Normal [facility] Comment on above: Order Comment: 302 Performed By: #### L 503.5510 #### [facility] Laboratory [address] [place], [place], [address] Venous blood ammonia measure mentOrdered By: Elisa Narvaez on 10-26-2024 Ammonia (P) [Moles/Vol] 17.0 umol/L [facility] CNPNon 10-22-2024 [facility] Telephone (GASTA5) -- STEPH BAUMANN ([id number]) 1950 M Date Time Provider Department 10/22/24 MERLIN LOREDO GASTA5 During your visit today, we recorded the following information about you: Luz Elena Snell 10/22/2024 1:[address] new lab orders, 12/01 Luz Elena Snell Technical Illustrator Mayra Hinton RN 10/22/2024 1:47 PM Signed Orders pended with later expiry date Mayra Benton RN October 22, 2024 1:47 PM Mayra Benton RN 10/22/2024 1:47 PM Signed Addended by: MAYRA BENTON on: 10/22/2024 01:47 PM Modules accepted: Orders Mayra Benton RN 10/23/2024 2:02 PM Signed Addended by: MAYRA BENTON on: 10/23/2024 02:02 PM Modules accepted: Orders Mayra Benton RN 11/13/2024 4:21 PM Signed Addended by: [...] - Unknown Date Reviewed: 09/05/2024 Reviewed by: Lissy Anna - Fully Assessed Reason for Visit: Orders [681] Cmt: New lab orders for February appt Primary Visit Diagnosis:Liver disease [K76.9] Other Visit Diagnoses:Alcoholic liver disease (HCC) [K70.9] Cirrhosis of liver with ascites, unspecified hepatic cirrhosis type (HCC) (HCC) [K74.60, R18.8] Order(s):COMPLETE BLOOD COUNT AND DIFFERENTIAL [SQCBCDIF] Order #: [id number] FUTURE COMPREHENSIVE METABOLIC PANEL [SQCMP] Order #: [id number] FUTURE PROTHROMBIN TIME [SQPT] Order #: [id number] FUTURE Prescriptions as of 11/14/2024 - BYDUREON [...] - l (more content not included)... Normal [facility] Hemoglobin A1con 10-22-2024 HbA1c (Bld) [Mass fraction] 6.3 % High 3.8-5.6 [facility] Comment on above: Order Comment: 302.1 Result Comment: Norm al < 5.7 % Prediabetic 5.7 - 6.4 % Diabetic >or= 6.5 % Please note range changes. Performed By: #### L 503.5510 #### [facility] [address] [place], [place], [id number] Hemoglobin A1c percentageOrd ered By: Elisa Narvaez on 10-22-2024 HbA1c (Bld) [Mass fraction] 6.3 % High 3.8-5.6 [facility] Comment on above: Normal < 5.7 % Predi abetic 5.7 - 6.4 % Diabetic >or= 6.5 % Please note range changes. Ammoniaon 09-28-2024 Ammonia (P) [Moles/Vol] 24.0 umol/L Normal [facility] Comment on above: Order Comment: 302.1 Performed By: #### L 503.5510 #### [facility] [address] [place], [place], [id number] CBC W/Diff, Automatedon Absolute Lymph 0.51 X10 3/uL Low 0.83-4.51 [facility] Comment on above: Performed By: #### L 500.4050, L300.3900, L100.0100 #### [facility] [address] [place], [address] Absolute Neut 4.8 X10 3/uL Normal 2.0-7.7 [facility] Comment on above: Performed By: #### L 500.4050, L300.3900, L100.0100 #### [facility] [address] [place], [address] Basophils/100 WBC (Bld) 0.5 % Normal 0-1 [facility] Comment on above: Performed By: #### L 500.4050, L300.3900, L100.0100 #### [facility] [address] [place], [address] Eosinophils/100 WBC (Bld) 5.3 % High 0-5 [facility] Comment on above: Performed By: #### L 500.4050, L300.3900, L100.0100 #### [facility] [address] [place], [address] Erythrocyte distribution width (RBC) [Ratio] 14.5 % Normal 11.6-14.6 [facility] Comment on above: Performed By: #### L 500.4050, L300.3900, L100.0100 #### [facility] [address] [place], [address] Hematocrit (Bld) [Volume fraction] 39.6 % Low 40-54 [facility] Comment on above: Performed By: #### L 500.4050, L300.3900, L100.0100 #### [facility] [address] [place], [address] Hemoglobin (Bld) [Mass/Vol] 12.3 g/dL Low 13.0-16.5 [facility] Comment on above: Performed By: #### L 500.4050, L300.3900, L100.0100 #### [facility] [address] [place], [address] IG% 1.500 High 0.0-0.9 [facility] Comment on above: Result Comment: IG% - Immature Granulocytes (promyelocytes, myelocytes and metamyelocytes) > 1% indicates that a LEFT SHIFT is Present. Performed By: #### L 500.4050, L300.3900, L100.0100 #### [facility] [address] [place], [address] Lymphocytes/100 WBC (Bld) 8.2 % Low 19-41 [facility] Comment on above: Performed By: #### L 500.4050, L300.3900, L100.0100 #### [facility] [address] [place], [address] MCH (RBC) [Entitic mass] 31.5 pg Normal 27.0-32.0 [facility] Comment on above: Performed By: #### L 500.4050, L300.3900, L100.0100 #### [facility] [address] [place], [address] MCHC (RBC) [Mass/Vol] 31.1 g/dL Low 32-36 [facility] Comment on above: Performed By: #### L 500.4050, L300.3900, L100.0100 #### [facility] [address] [place], [address] MCV (RBC) [Entitic vol] 101.3 fL High 80-94 [facility] Comment on above: Performed By: #### L 500.4050, L300.3900, L100.0100 #### [facility] [address] [place], [address] Monocytes/100 WBC (Bld) 6.8 % Normal 0-10 [facility] Comment on above: Performed By: #### L 500.4050, L300.3900, L100.0100 #### [facility] [address] [place], [address] Neutrophils/100 WBC (Bld) 77.7 % High 47-70 [facility] Comment on above: Performed By: #### L 500.4050, L300.3900, L100.0100 #### [facility] [address] [place], [address] Nucleated RBC (Bld) [#/Vol] 0 10*3/uL Normal 0-5 [facility] Comment on above: Performed By: #### L 500.4050, L300.3900, L100.0100 #### [facility] [address] [place], [address] Platelet mean volume (Bld) [Entitic vol] 11.0 fL Normal 6.2-12.0 [facility] Comment on above: Performed By: #### L 500.4050, L300.3900, L100.0100 #### [facility] [address] [place], [address] Platelets (Bld) [#/Vol] 135 10*3/uL Low 150-450 [facility] Comment on above: Performed By: #### L 500.4050, L300.3900, L100.0100 #### [facility] [address] [place], [address] RBC (Bld) [#/Vol] 3.91 10*6/uL Low 4.6-6.2 [facility] Comment on above: Performed By: #### L 500.4050, L300.3900, L100.0100 #### [facility] [address] [place], [address] RDW SD 54.4 fl High 35.1-43.9 [facility] Comment on above: Performed By: #### L 500.4050, L300.3900, L100.0100 #### [facility] [address] [place], [address] WBC (Bld) [#/Vol] 6.2 10*3/uL Normal 4.4-11.0 [facility] Comment on above: Performed By: #### L 500.4050, L300.3900, L100.0100 #### [facility] [address] [place], [address] Comprehensive Metabolic Prof ilon 09-10-2024 Albumin [Mass/Vol] 3.3 g/dL Normal 3.2-5.0 [facility] Comment on above: Performed By: #### L 500.4050, L300.3900, L100.0100 #### [facility] [address] [place], [address] Albumin/Globulin [Mass ratio] 1.0 {ratio} Normal 0.9-2.4 [facility] Comment on above: Performed By: #### L 500.4050, L300.3900, L100.0100 #### [facility] [address] [place], [address] ALK P 57 U/L Normal 45-117 [facility] Comment on above: Performed By: #### L 500.4050, L300.3900, L100.0100 #### [facility] [address] [place], [address] ALT [Catalytic activity/Vol] 12 U/L Low 16-61 [facility] Comment on above: Performed By: #### L 500.4050, L300.3900, L100.0100 #### [facility] [address] [place], [address] AST [Catalytic activity/Vol] 9 U/L Low 15-37 [facility] Comment on above: Performed By: #### L 500.4050, L300.3900, L100.0100 #### [facility] [address] [place], [address] Bilirubin [Mass/Vol] 0.40 mg/dL Normal 0.20-1.00 [facility] Comment on above: Result Comment: For patients on eltrombopag therapy, use of Dimension [place] TBIL is not recommended. Performed By: #### L 500.4050, L300.3900, L100.0100 #### [facility] [address] [place], [address] BUN/CRE 32.0 RATIO High 10-20 [facility] Comment on above: Performed By: #### L 500.4050, L300.3900, L100.0100 #### [facility] [address] [place], [address] CA,Total 8.4 mg/dL Low 8.5-10.1 [facility] Comment on above: Performed By: #### L 500.4050, L300.3900, L100.0100 #### [facility] [address] [place], [address] Chloride [Moles/Vol] 113 mmol/L High 98-107 [facility] Comment on above: Performed By: #### L 500.4050, L300.3900, L100.0100 #### [facility] [address] [place], [address] CO2 [Moles/Vol] 22.0 mmol/L Normal 21.0-32.0 [facility] Comment on above: Performed By: #### L 500.4050, L300.3900, L100.0100 #### [facility] [address] [place], [address] Creatinine [Mass/Vol] 0.94 mg/dL Normal 0.70-1.30 [facility] Comment on above: Result Comment: The validity of the calculated GFR GFRAA in patients over 70 years has not been determined. Clinical correlation is essential. Performed By: #### L 500.4050, L300.3900, L100.0100 #### [facility] [address] [place], [address] EST GFR - AA 102 mL/min Normal >60 [facility] Comment on above: Result Comment: Afri can Panamanian GFR Calc Performed By: #### L 500.4050, L300.3900, L100.0100 #### [facility] [address] [place], [address] GAP 5 Normal 5-15 [facility] Comment on above: Performed By: #### L 500.4050, L300.3900, L100.0100 #### [facility] [address] [place], [address] GFR/1.73 sq M.predicted among non-blacks MDRD (S/P/Bld) [Vol rate/Area] 84 mL/min/{1.73_m2} Normal >60 [facility] Comment on above: Result Comment: Non- GFR Calc Performed By: #### L 500.4050, L300.3900, L100.0100 #### [facility] [address] [place], [address] Globulin (S) [Mass/Vol] 3.4 g/dL Normal 2.2-4.2 [facility] Comment on above: Performed By: #### L 500.4050, L300.3900, L100.0100 #### [facility] [address] [place], [address] Glucose [Mass/Vol] 113 mg/dL High 74-106 [facility] Comment on above: Result Comment: Fast ing Glucose result from 100 to 125 mg/dL suggests IMPAIRED HOMEOSTASIS per A.D.A. criteria. Performed By: #### L 500.4050, L300.3900, L100.0100 #### [facility] [address] [place], [address] Potassium [Moles/Vol] 4.0 mmol/L Normal 3.5-5.1 [facility] Comment on above: Performed By: #### L 500.4050, L300.3900, L100.0100 #### [facility] [address] [place], [address] Sodium [Moles/Vol] 140 mmol/L Normal 136-145 [facility] Comment on above: Performed By: #### L 500.4050, L300.3900, L100.0100 #### [facility] [address] [place], [address] T PROT 6.7 g/dL Normal 6.4-8.2 [facility] Comment on above: Performed By: #### L 500.4050, L300.3900, L100.0100 #### [facility] [address] [place], [address] Urea nitrogen [Mass/Vol] 30 mg/dL High 7-18 [facility] Comment on above: Performed By: #### L 500.4050, L300.3900, L100.0100 #### [facility] [address] [place], [address] Prothrombin Time w/INRon INR Coag (PPP) [Relative time] 1.5 {INR} Normal [facility] Comment on above: Performed By: #### L 500.4050, L300.3900, L100.0100 #### [facility] [address] [place], [address] PT Coag (PPP) [Time] 18.4 s High 11.7-14.9 [facility] Comment on above: Performed By: #### L 500.4050, L300.3900, L100.0100 #### [facility] [address] [place], [address] Liver ultrasound attenuation by transient elastographyon 08-28-2024 Fibroscan Report Date performed: August 28, 2024 Performed by: Syeda Alexander RN Interpreted by: Parisa Miller APRN, CNP Patient fasted 3 hours:Yes [...] testing to confirm and referral to hepatology. Parisa Miller APRN.JONG Alcoholic Liver disease Fibroscan Fibrosis Risk <7 [...] Int J Clin Exp Med. 2015 Aug 15;8(10):74243-66. PMID: 98909701; PMCID: QAE8882668. Stuart Fuentes, Russel MOHAN, Lukasz M, Carie F, Chasidy J, Marek O, Richard F, Harjit M, Evangelista G, Anahy A, Hien E, Herve L, Zahraa G, Reese A, Vivian U, Sariah S, Kota P, Quirino V, Vaughn V, Genevieve M, Ajit BARRIOS. Refining the Baveno elastography criteria for the definition of compensated advanced chronic liver disease. J Hepatol. 2020;74(5):7984-1282. doi: 10.1016/j.jhep.2020.11.050 . Epub 2019Oct 15. PMID: 49223756. Renita Fuentes, Dorie Wang, Nallely Fuentes, Raghav Fuentes, Willis Ro, Velvet Chávez, Karli Chávez, Swati Giordano. AASLD practice guidance on the clinical assessment and management of nonalcoholic fatty liver disease. Hepatology. 2022;77(5):3338-4877. doi:10.1097/HEP.8786686526 659047 [facility] Radiology Study observation (narrative) [facility] No Panel Informationon 08-28 [facility] US Abdomen RUQon 08-28-2024 Radiology Study observation (narrative) [facility] IMPRESSION: Cirrhotic liver morphology. No suspicious lesions. Cholelithiasis. Ruching Machine Operator: LAVINIA Transcribe Date/Time: Aug 28 2024 11:22A Dictated by : MADISON HARDWICK MD This examination was interpreted and the report reviewed and electronically signed by: SOTERO CARDENAS MD on Aug 28 2024 12:15PM [facility] DIVISION OF RADIOLOGY * * *Final Report* [...] Cirrhotic liver morphology. No suspicious lesions. Cholelithiasis. Ruching Machine Operator: LAVINIA Transcribe Date/Time: Aug 28 2024 11:22A Dictated by : MADISON HARDWICK MD This examination was interpreted and the report reviewed and electronically signed by: SOTERO CARDENAS MD on Aug 28 2024 12:15PM [facility] EGD Study observation Narrat iveon 08-22-2024 A31 Gastrointestinal Endoscopy Patient Name: Steph Baumann Procedure Date: 08/22/2024 10:26 AM Date of : 1950 Admit Type: Outpatient Age: 74 Room: [address] Gender: Male Note Status: Finalized Attending MD: Alfred Ramsey MD, [id number] Procedure: Upper GI endoscopy Indications: Esophageal varices Providers: Alfred Ramsey MD Patient Profile: This is a [...] previously scheduled. Procedure Code(s): --- Professional --- 16865, Esophagogastroduodenoscopy , flexible, transoral; diagnostic, including malinda (more content not included)... PROVATION [facility] Radiology Study observation (narrative) [facility] No Panel Informationon 03-14 IMPRESSION: PROBABLE FINE MICRONODULARITY OF LIVER, SUGGESTING CIRRHOSIS. NO FOCAL SUSPICIOUS HEPATIC LESION. CHOLELITHIASIS AND GALLBLADDER SLUDGE. NO BILE DUCT DILATION. NO SPLENOMEGALY. Ruching Machine Operator: [facility] Transcribe Date/Time: Mar 14 2024 10:54A Dictated by : PHILIP OROURKE MD This examination was interpreted and the report reviewed and electronically signed by: PHILIP OROURKE MD on Mar 14 2024 11:00AM [facility] DIVISION OF RADIOLOGY No Panel InformationOrdered By: Ccf Provider on 03-14-2024 [facility] ABD SPLEEN - NBon 024 * * *Final Report* * * DATE OF EXAM: Mar 14 2024 10:33[facility] 1232 - US ABD SPLEEN [...] SLUDGE. NO BILE DUCT DILATION. NO SPLENOMEGALY. Ruching Machine Operator: PSCKathleen Transcribe Date/Time: Mar 14 2024 10:54A Dictated by : PHILIP OROURKE MD This examination was interpreted and the report reviewed and electronically signed by: PHILIP OROURKE MD on Mar 14 2024 11:00AM EST [facility] Radiology Study observation (narrative) [facility] US Abdomen RUQon 03-14-2024 * * [...] SLUDGE. NO BILE DUCT DILATION. NO SPLENOMEGALY. Ruching Machine Operator: PSCB Transcribe Date/Time: Mar 14 2024 10:54A Dictated by : PHILIP OROURKE MD This examination was interpreted and the report reviewed and electronically signed by: PHILIP OROURKE MD on Mar 14 2024 11:00AM EST [facility] Radiology Study observation (narrative) Florinda chávez [facility] Basophil percentageOrdered B y: Elisa Narvaez on 01-19-2024 Ammonia (P) [Moles/Vol] 42.0 umol/L 11-32 [facility] Chloride [Moles/Vol] 114 mmol/L 98-107 [facility] Glucose [Mass/Vol] 107 mg/dL 74-106 [facility] Comment on above: Fasting Glucose resu lt from 100 to 125 mg/dL suggests IMPAIRED HOMEOSTASIS per A.D.A. criteria. Potassium [Moles/Vol] 3.7 mmol/L 3.5-5.1 [facility] Sodium [Moles/Vol] 144 mmol/L 136-145 [facility] Laboratory - Chemistry and C hemistry - challengeOrdered By: Elisa Narvaez on 01-19-2024 CO2 [Moles/Vol] 23.0 mmol/L 21.0-32.0 [facility] Urea nitrogen/Creatinine [Mass ratio] 21.0 mg/mg 10-20 [facility] No Panel InformationOrdered By: Elisa Narvaez on 01-19-2024 Estimated GFR (MDRD) Amer 74 mL/min >60 [facility] Comment on above: GFR Calc Estimated GFR (MDRD) Non-Af Amer 61 mL/min >60 [facility] Comment on above: Non- GFR Calc Serum or plasma calcium carol urement (mass/volume)Ordered By: Elisa Narvaez on 01-19-2024 Calcium [Mass/Vol] 9.0 mg/dL 8.5-10.1 [facility] Serum or plasma creatinine m easurement (mass/volume)Ordered By: Elisa Narvaez on 01-19-2024 Creatinine [Mass/Vol] 1.24 mg/dL 0.70-1.30 [facility] Comment on above: The validity of the calculated GFR & GFRAA in patients over 70 years has not been determined. Clinical correlation is essential. Serum or plasma urea nitroge n measurement (mass/volume)Ordered By: Elisa Narvaez on 01-19-2024 Urea nitrogen [Mass/Vol] 26 mg/dL 7-18 [facility] Thin prep Papanicolaou smear with manual screeningOrdered By: Elisa Narvaez on 01-19-2024 Thin prep Papanicolaou smear with manual screening 7 5-15 [facility] Absolute lymphocyte countOrd ered By: Elisa Narvaez on 01-11-2024 Lymphocytes Auto (Unsp spec) [#/Vol] 0.61 10*3/uL 0.83-4.51 [facility] Automated lymphocyte count a s percentage of total leukocytesOrdered By: Elisa Narvaez on 01-11-2024 Lymphocytes/100 WBC Auto (Unsp spec) 8.8 % 19-41 [facility] Basophil percentageOrdered B y: Elisa Narvaez on 01-11-2024 Basophils/100 WBC (Bld) 0.6 % 0-1 [facility] Chloride [Moles/Vol] 113 mmol/L 98-107 [facility] Eosinophils/100 WBC (Bld) 4.3 % 0-5 [facility] Glucose [Mass/Vol] 115 mg/dL 74-106 [facility] Comment on above: Fasting Glucose resu lt from 100 to 125 mg/dL suggests IMPAIRED HOMEOSTASIS per A.D.A. criteria. Hemoglobin (Bld) [Mass/Vol] 11.6 g/dL 13.0-16.5 [facility] Monocytes/100 WBC (Bld) 6.2 % 0-10 [facility] Neutrophils (Bld) [#/Vol] 5.5 10*3/uL 2.0-7.7 [facility] Neutrophils/100 WBC (Bld) 79.2 % 47-70 [facility] Potassium [Moles/Vol] 3.3 mmol/L 3.5-5.1 [facility] Sodium [Moles/Vol] 144 mmol/L 136-145 [facility] WBC (Bld) [#/Vol] 7.0 10*3/uL 4.4-11.0 [facility] Determination of erythrocyte mean corpuscular volume (MCV)Ordered By: Elisa Narvaez on 01-11-2024 MCV (RBC) [Entitic vol] 97.8 fL 80-94 [facility] Erythrocyte distribution wid th ratioOrdered By: Elisa Narvaez on 01-11-2024 Erythrocyte distribution width (RBC) [Ratio] 14.9 % 11.6-14.6 [facility] Erythrocyte distribution wid th standard deviationOrdered By: Elisaely Narvaez on 01-11-2024 Erythrocyte distribution width (RBC) [Entitic vol] 53.7 fL 35.1-43.9 [facility] Hematocrit Auto (Bld) [Volum e fraction]Ordered By: Elisa Narvaez on 01-11-2024 Hematocrit (Bld) [Volume fraction] 35.6 % 40-54 [facility] Immature granulocytes/100 WB C Auto (Bld)Ordered By: Elisa Narvaez on 01-11-2024 Immature granulocytes/100 WBC (Bld) 0.900 % 0.0-0.9 [facility] Comment on above: IG% - Immature Granu locytes (promyelocytes, myelocytes and metamyelocytes) > 1% indicates that a LEFT SHIFT is Present. Laboratory - Chemistry and C hemistry - challengeOrdered By: Elisa Narvaez on 01-11-2024 CO2 [Moles/Vol] 23.0 mmol/L 21.0-32.0 [facility] Urea nitrogen/Creatinine [Mass ratio] 11.9 mg/mg 10-20 [facility] Laboratory - Hematology and Cell countsOrdered By: Elisa Narvaez on 01-11-2024 MCH (RBC) [Entitic mass] 31.9 pg 27.0-32.0 [facility] MCHC (RBC) [Mass/Vol] 32.6 g/dL 32-36 [facility] Nucleated RBC/100 WBC (Bld) [Ratio] 0 % 0-5 [facility] Platelet mean volume (Bld) [Entitic vol] 12.2 fL 6.2-12.0 [facility] Platelets (Bld) [#/Vol] 132 10*3/uL 150-450 [facility] No Panel InformationOrdered By: Elisa Narvaez on 01-11-2024 Estimated GFR (MDRD) Amer 63 mL/min >60 [facility] Comment on above: GFR Calc Estimated GFR (MDRD) Non-Af Amer 52 mL/min >60 [facility] Comment on above: Non- GFR Calc RBC Auto (Bld) [#/Vol]Ordere d By: Elisa Narvaez on 01-11-2024 RBC (Bld) [#/Vol] 3.64 10*6/uL 4.6-6.2 [facility] Serum or plasma calcium carol urement (mass/volume)Ordered By: Elisa Narvaez on 01-11-2024 Calcium [Mass/Vol] 8.7 mg/dL 8.5-10.1 [facility] Serum or plasma creatinine m easurement (mass/volume)Ordered By: Elisa Narvaez on 01-11-2024 Creatinine [Mass/Vol] 1.43 mg/dL 0.70-1.30 [facility] Comment on above: The validity of the calculated GFR & GFRAA in patients over 70 years has not been determined. Clinical correlation is essential. Serum or plasma urea nitroge n measurement (mass/volume)Ordered By: Elisa Narvaez on 01-11-2024 Urea nitrogen [Mass/Vol] 17 mg/dL 7-18 [facility] Thin prep Papanicolaou smear with manual screeningOrdered By: Elisa Narvaez on 01-11-2024 Thin prep Papanicolaou smear with manual screening 8 5-15 [facility] Whole blood hemoglobin A1c/t otal hemoglobin ratio (mass fraction)Ordered By: Elisa Narvaez on 01-11-2024 HbA1c (Bld) [Mass fraction] 6.2 % 3.8-5.6 [facility] Comment on above: Normal < 5.7 % Predi abetic 5.7 - 6.4 % Diabetic >or= 6.5 % Please note range changes. Basophil percentageOrdered B y: Elisa Narvaez on 01-06-2024 Basophil percentage 3.6 mg/dL 2.5-4.9 [facility] Basophil percentageOrdered B y: Elisa Narvaez on 12-30-2023 Basophil percentage 3.5 mg/dL 2.5-4.9 [facility] Laboratory - Chemistry and C hemistry - challengeOrdered By: Elisa Narvaez on 11-14-2023 Cobalamin (Vitamin B12) [Mass/Vol] 731 pg/mL 211-911 [facility] Serum or plasma folate measu rement (mass/volume)Ordered By: Elisa Narvaez on 11-14-2023 Folate [Mass/Vol] 6.10 ng/mL 3.1-55.4 [facility] Absolute lymphocyte countOrd ered By: Elisa Narvaez on 10-19-2023 Lymphocytes Auto (Unsp spec) [#/Vol] 0.45 10*3/uL 0.83-4.51 [facility] Basophil percentageOrdered B y: Elisa Narvaez on 10-19-2023 Ammonia (P) [Moles/Vol] 49.0 umol/L 11-32 [facility] Basophils/100 WBC (Bld) 0.4 % 0-1 [facility] Chloride [Moles/Vol] 115 mmol/L 98-107 [facility] Eosinophils/100 WBC (Bld) 4.9 % 0-5 [facility] Glucose [Mass/Vol] 144 mg/dL 74-106 [facility] Comment on above: Fasting Glucose resu lt greater than or equal to 126 mg/dL suggests DIABETES MELLITUS per A.D.A. criteria. Neutrophils (Bld) [#/Vol] 5.5 10*3/uL 2.0-7.7 [facility] Neutrophils/100 WBC (Bld) 81.2 % 47-70 [facility] Potassium [Moles/Vol] 3.6 mmol/L 3.5-5.1 [facility] Sodium [Moles/Vol] 141 mmol/L 136-145 [facility] WBC (Bld) [#/Vol] 6.7 10*3/uL 4.4-11.0 [facility] Blood erythrocytes count (nu mber/volume)Ordered By: Elisa Narvaez on 10-19-2023 RBC (Bld) [#/Vol] 3.65 10*6/uL 4.6-6.2 [facility] Blood hemoglobin measurement (mass/volume)Ordered By: Elisa Narvaez on 10-19-2023 Hemoglobin (Bld) [Mass/Vol] 11.5 g/dL 13.0-16.5 [facility] Blood lymphocytes/100 leukoc ytesOrdered By: Elisa Narvaez on 10-19-2023 Lymphocytes/100 WBC (Bld) 6.7 % 19-41 [facility] Blood manual differential co mment interpretation (narrative result)Ordered By: Elisa Narvaez on 10-19-2023 Manual differential comment Timur (Bld) [Interp] SCANNED [facility] Blood monocytes/100 leukocyt esOrdered By: Elisa Narvaez on 10-19-2023 Monocytes/100 WBC (Bld) 6.4 % 0-10 [facility] Blood platelet mean volumeOr dered By: Elisa Narvaez on 10-19-2023 Platelet mean volume (Bld) [Entitic vol] 11.2 fL 6.2-12.0 [facility] Determination of erythrocyte mean corpuscular volume (MCV)Ordered By: Elisa Narvaez on 10-19-2023 MCV (RBC) [Entitic vol] 101.9 fL 80-94 [facility] Hematocrit Auto (Bld) [Volum e fraction]Ordered By: Elisa Narvaez on 10-19-2023 Hematocrit (Bld) [Volume fraction] 37.2 % 40-54 [facility] Laboratory - Chemistry and C hemistry - challengeOrdered By: Elisa Narvaez on 10-19-2023 CO2 [Moles/Vol] 21.0 mmol/L 21.0-32.0 [facility] Magnesium [Mass/Vol] 2.0 mg/dL 1.6-2.6 [facility] Urea nitrogen/Creatinine [Mass ratio] 16.5 mg/mg 10-20 [facility] Laboratory - Hematology and Cell countsOrdered By: Elisa Narvaez on 10-19-2023 Erythrocyte distribution width (RBC) [Entitic vol] 55.9 fL 35.1-43.9 [facility] Erythrocyte distribution width (RBC) [Ratio] 15.0 % 11.6-14.6 [facility] Immature granulocytes/100 WBC (Bld) 0.400 % 0.0-0.9 [facility] Comment on above: IG% - Immature Granu locytes (promyelocytes, myelocytes and metamyelocytes) > 1% indicates that a LEFT SHIFT is Present. MCH (RBC) [Entitic mass] 31.5 pg 27.0-32.0 [facility] Nucleated RBC/100 WBC (Bld) [Ratio] 0 % 0-5 [facility] MCHC Auto (RBC) [Mass/Vol]Or dered By: Elisa Narvaez on 10-19-2023 MCHC (RBC) [Mass/Vol] 30.9 g/dL 32-36 [facility] No Panel InformationOrdered By: Elisa Narvaez on 10-19-2023 Estimated GFR (MDRD) Amer 76 mL/min >60 [facility] Comment on above: GFR Calc Estimated GFR (MDRD) Non-Af Amer 63 mL/min >60 [facility] Comment on above: Non- GFR Calc Platelets bldOrdered By: Dante Narvaez on 10-19-2023 Platelets (Bld) [#/Vol] 144 10*3/uL 150-450 [facility] Serum or plasma calcium carol urement (mass/volume)Ordered By: Elisa Narvaez on 10-19-2023 Calcium [Mass/Vol] 8.8 mg/dL 8.5-10.1 [facility] Serum or plasma creatinine m easurement (mass/volume)Ordered By: Elisa Narvaez on 10-19-2023 Creatinine [Mass/Vol] 1.21 mg/dL 0.70-1.30 [facility] Comment on above: The validity of the calculated GFR & GFRAA in patients over 70 years has not been determined. Clinical correlation is essential. Serum or plasma urea nitroge n measurement (mass/volume)Ordered By: Elisa Narvaez on 10-19-2023 Urea nitrogen [Mass/Vol] 20 mg/dL 7-18 [facility] Thin prep Papanicolaou smear with manual screeningOrdered By: Elisa Narvaez on 10-19-2023 Thin prep Papanicolaou smear with manual screening 5 5-15 [facility] Basophil percentageOrdered B y: Elisa Narvaez on 08-22-2023 Basophil percentage 107 mg/dL <200 [facility] Basophil percentage 91 mg/dL <199 [facility] Cholesterol [Mass/Vol] 107 mg/dL <200 [facility] Comment on above: <200 mg/dL Desirable 200-240 mg/dL Borderline >240 mg/dL High Risk Triglyceride [Mass/Vol] 91 mg/dL <199 [facility] Comment on above: The drugs N-Acetylcy steine and Metamizole may falsely depress this assay.Serum Triglycerides Reference Interval Normal <150 mg/dL Borderline high 150 - 199 mg/dL High 200 - 499 mg/dL Very High > or = 500 mg/dL Serum or plasma cholesterol in HDL measurement (mass/volume)Ordered By: Elisa Narvaez on 08-22-2023 Cholesterol in HDL [Mass/Vol] 31 mg/dL >40 [facility] Comment on above: The drugs N-Acetylcy steine and Metamizole may falsely depress this assay. Reference Range HDL <40 mg/dL Low HDL Cholesterol HDL >or= 60 mg/dL High HDL Cholesterol Serum or plasma cholesterol in VLDL measurement (mass/volume)Ordered By: Elisa Narvaez on 08-22-2023 Cholesterol in VLDL [Mass/Vol] 18 mg/dL 5-40 [facility] Serum or plasma low density lipoprotein (LDL) cholesterol measurement (mass/volume)Ordered By: Elisa Narvaez on 08-22-2023 Cholesterol in LDL [Mass/Vol] 58 mg/dL 0-130 [facility] No Panel InformationOrdered By: Elisa Narvaez on 08-08-2023 Urine Microalbumin/Creatinine Ratio 452.1 mg/g CRE <30 [facility] 452.1 mg/g CRE <30 [facility] Thin prep Papanicolaou smear with manual screeningOrdered By: Elisa Narveaz on 08-08-2023 Thin prep Papanicolaou smear with manual screening 538.0 mg/L NO RANGE EST. [facility] Urine creatinine measurement (mass/volume)Ordered By: Elisa Narvaez on 08-08-2023 Creatinine (U) [Mass/Vol] 119.00 mg/dL NO RANGE EST. [facility] Basophil percentageOrdered B y: [facility] on 08-05-2023 Basophil percentage 122 mg/dL 74-106 [facility] Basophil percentage 6.4 g/dL 6.4-8.2 [facility] Basophil percentage 0.40 mg/dL 0.20-1.00 [facility] Basophil percentage 140 mmol/L 136-145 [facility] Basophil percentage 4.1 mmol/L 3.5-5.1 [facility] Basophil percentage 115 mmol/L 98-107 [facility] Basophils (Bld) [#/Vol] 4.0 10*3/uL 4.4-11.0 [facility] Bilirubin [Mass/Vol] 0.40 mg/dL 0.20-1.00 [facility] Comment on above: For patients on eltr ombopag therapy, use of Dimension [place] TBIL is not recommended. Chloride [Moles/Vol] 115 mmol/L 98-107 [facility] Glucose [Mass/Vol] 122 mg/dL 74-106 [facility] Comment on above: Fasting Glucose resu lt from 100 to 125 mg/dL suggests IMPAIRED HOMEOSTASIS per A.D.A. criteria. Potassium [Moles/Vol] 4.1 mmol/L 3.5-5.1 [facility] Protein [Mass/Vol] 6.4 g/dL 6.4-8.2 [facility] Sodium [Moles/Vol] 140 mmol/L 136-145 [facility] WBC (Bld) [#/Vol] 4.0 10*3/uL 4.4-11.0 [facility] Blood erythrocytes count (nu mber/volume)Ordered By: [facility] on 08-05-2023 RBC (Bld) [#/Vol] 3.76 10*6/uL 4.6-6.2 [facility] Blood hemoglobin measurement (mass/volume)Ordered By: [facility] on 08-05-2023 Hemoglobin (Bld) [Mass/Vol] 12.0 g/dL 13.0-16.5 [facility] Blood platelet mean volumeOr dered By: [facility] on 08-05-2023 Platelet mean volume (Bld) [Entitic vol] 11.9 fL 6.2-12.0 [facility] Determination of erythrocyte mean corpuscular volume (MCV)Ordered By: [facility] on 08-05-2023 MCV (RBC) [Entitic vol] 102.1 fL 80-94 [facility] Hematocrit Auto (Bld) [Volum e fraction]Ordered By: [facility] on 08-05-2023 Hematocrit (Bld) [Volume fraction] 38.4 % 40-54 [facility] INR in Blood by Coagulation assayOrdered By: [facility] on 08-05-2023 INR Coag (Bld) [Relative time] 1.7 {INR} [facility] Laboratory - Chemistry and C hemistry - challengeOrdered By: [facility] on 08-05-2023 ALP [Catalytic activity/Vol] 99 U/L 45-117 [facility] ALT [Catalytic activity/Vol] 17 U/L 16-61 [facility] CO2 [Moles/Vol] 23.0 mmol/L 21.0-32.0 [facility] Globulin (S) [Mass/Vol] 3.5 g/dL 2.2-4.2 [facility] Urea nitrogen/Creatinine [Mass ratio] 17.5 mg/mg 10-20 [facility] Laboratory - CoagulationOrde red By: [facility] on 08-05-2023 aPTT Coag (Bld) [Time] 34.6 s 24.1-36.2 [facility] PT Coag (PPP) [Time] 20.1 s 11.7-14.9 [facility] Laboratory - Hematology and Cell countsOrdered By: [facility] on 08-05-2023 Erythrocyte distribution width (RBC) [Entitic vol] 52.3 fL 35.1-43.9 [facility] Erythrocyte distribution width (RBC) [Ratio] 13.8 % 11.6-14.6 [facility] MCH (RBC) [Entitic mass] 31.9 pg 27.0-32.0 [facility] MCHC Auto (RBC) [Mass/Vol]Or dered By: [facility] on 08-05-2023 MCHC (RBC) [Mass/Vol] 31.3 g/dL 32-36 [facility] No Panel InformationOrdered By: [facility] on 08-05-2023 Estimated GFR (MDRD) Amer 81 mL/min >60 [facility] Comment on above: GFR Calc Estimated GFR (MDRD) Non-Af Amer 67 mL/min >60 [facility] Comment on above: Non- GFR Calc 31.9 pg 27.0-32.0 [facility] 13.8 % 11.6-14.6 [facility] 52.3 fl 35.1-43.9 [facility] 20.1 SECONDS 11.7-14.9 [facility] 34.6 Seconds 24.1-36.2 [facility] 67 mL/min >60 [facility] 81 mL/min >60 [facility] 17.5 RATIO 10-20 [facility] 3.5 g/dL 2.2-4.2 [facility] 99 U/L 45-117 [facility] 17 U/L 16-61 [facility] 23.0 mmol/L 21.0-32.0 [facility] Platelets bldOrdered By: [facility] on 08-05-2023 Platelets (Bld) [#/Vol] 128 10*3/uL 150-450 [facility] Serum or plasma albumin carol urement (mass/volume)Ordered By: [facility] on 08-05-2023 Albumin [Mass/Vol] 2.9 g/dL 3.2-5.0 [facility] Serum or plasma albumin/glob ulin mass ratioOrdered By: [facility] on 08-05-2023 Albumin/Globulin [Mass ratio] 0.8 {ratio} 0.9-2.4 [facility] Serum or plasma calcium carol urement (mass/volume)Ordered By: [facility] on 08-05-2023 Calcium [Mass/Vol] 8.5 mg/dL 8.5-10.1 [facility] Serum or plasma creatinine m easurement (mass/volume)Ordered By: [facility] on 08-05-2023 Creatinine [Mass/Vol] 1.14 mg/dL 0.70-1.30 [facility] Comment on above: The validity of the calculated GFR & GFRAA in patients over 70 years has not been determined. Clinical correlation is essential. Serum or plasma urea nitroge n measurement (mass/volume)Ordered By: [facility] on 08-05-2023 Urea nitrogen [Mass/Vol] 20 mg/dL 7-18 [facility] Thin prep Papanicolaou smear with manual screeningOrdered By: [facility] on 08-05-2023 Thin prep Papanicolaou smear with manual screening 13 U/L 15-37 [facility] Thin prep Papanicolaou smear with manual screening 2 5-15 [facility] Basophil percentageOrdered B y: Elisa Narvaez on 07-21-2023 Ammonia (P) [Moles/Vol] 41.0 umol/L [facility] Basophil percentage 41.0 umol/L [facility] Basophil percentageOrdered B y: Elisa Narvaez on 07-19-2023 Ammonia (P) [Moles/Vol] 44.0 umol/L [facility] Basophil percentage 44.0 umol/L [facility] Absolute lymphocyte countOrd ered By: Elisa Narvaez on 07-15-2023 Lymphocytes Auto (Unsp spec) [#/Vol] 0.40 10*3/uL 0.83-4.51 [facility] Basophil percentageOrdered B y: Elisa Narvaez on 07-15-2023 Basophil percentage 122 mg/dL 74-106 [facility] Basophil percentage 141 mmol/L 136-145 [facility] Basophil percentage 4.0 mmol/L 3.5-5.1 [facility] Basophil percentage 115 mmol/L 98-107 [facility] Basophils (Bld) [#/Vol] 5.8 10*3/uL 4.4-11.0 [facility] Basophils (Bld) [#/Vol] 4.7 10*3/uL 2.0-7.7 [facility] Basophils/100 WBC (Bld) 80.9 % 47-70 [facility] Basophils/100 WBC (Bld) 4.8 % 0-5 [facility] Basophils/100 WBC (Bld) 0.5 % 0-1 [facility] Chloride [Moles/Vol] 115 mmol/L 98-107 [facility] Eosinophils/100 WBC (Bld) 4.8 % 0-5 [facility] Glucose [Mass/Vol] 122 mg/dL 74-106 [facility] Comment on above: Fasting Glucose resu lt from 100 to 125 mg/dL suggests IMPAIRED HOMEOSTASIS per A.D.A. criteria. Neutrophils (Bld) [#/Vol] 4.7 10*3/uL 2.0-7.7 [facility] Neutrophils/100 WBC (Bld) 80.9 % 47-70 [facility] Potassium [Moles/Vol] 4.0 mmol/L 3.5-5.1 [facility] Sodium [Moles/Vol] 141 mmol/L 136-145 [facility] WBC (Bld) [#/Vol] 5.8 10*3/uL 4.4-11.0 [facility] Blood erythrocytes count (nu mber/volume)Ordered By: Elisa Narvaez on 07-15-2023 RBC (Bld) [#/Vol] 3.93 10*6/uL 4.6-6.2 [facility] Blood hemoglobin measurement (mass/volume)Ordered By: Elisa Narvaez on 07-15-2023 Hemoglobin (Bld) [Mass/Vol] 12.7 g/dL 13.0-16.5 [facility] Blood lymphocytes/100 leukoc ytesOrdered By: Elisa Narvaez on 07-15-2023 Lymphocytes/100 WBC (Bld) 6.9 % 19-41 [facility] Blood monocytes/100 leukocyt esOrdered By: Elisa Narvaez on 07-15-2023 Monocytes/100 WBC (Bld) 6.4 % 0-10 [facility] Blood platelet mean volumeOr dered By: Elisa Narvaez on 07-15-2023 Platelet mean volume (Bld) [Entitic vol] 11.2 fL 6.2-12.0 [facility] Determination of erythrocyte mean corpuscular volume (MCV)Ordered By: Elisa Narvaez on 07-15-2023 MCV (RBC) [Entitic vol] 100.3 fL 80-94 [facility] Hematocrit Auto (Bld) [Volum e fraction]Ordered By: Elisa Narvaez on 07-15-2023 Hematocrit (Bld) [Volume fraction] 39.4 % 40-54 [facility] Laboratory - Chemistry and C hemistry - challengeOrdered By: Elisaely Narvaez on 07-15-2023 CO2 [Moles/Vol] 21.0 mmol/L 21.0-32.0 [facility] Magnesium [Mass/Vol] 2.3 mg/dL 1.6-2.6 [facility] Urea nitrogen/Creatinine [Mass ratio] 14.7 mg/mg 10-20 [facility] Laboratory - Hematology and Cell countsOrdered By: Elisa Narvaez on 07-15-2023 Erythrocyte distribution width (RBC) [Entitic vol] 55.5 fL 35.1-43.9 [facility] Erythrocyte distribution width (RBC) [Ratio] 14.9 % 11.6-14.6 [facility] Immature granulocytes/100 WBC (Bld) 0.500 % 0.0-0.9 [facility] Comment on above: IG% - Immature Granu locytes (promyelocytes, myelocytes and metamyelocytes) > 1% indicates that a LEFT SHIFT is Present. MCH (RBC) [Entitic mass] 32.3 pg 27.0-32.0 [facility] Nucleated RBC/100 WBC (Bld) [Ratio] 0 % 0-5 [facility] MCHC Auto (RBC) [Mass/Vol]Or dered By: Elisa Narvaez on 07-15-2023 MCHC (RBC) [Mass/Vol] 32.2 g/dL 32-36 [facility] No Panel InformationOrdered By: Elisa Narvaez on 07-15-2023 Estimated GFR (MDRD) Amer 80 mL/min >60 [facility] Comment on above: GFR Calc Estimated GFR (MDRD) Non-Af Amer 66 mL/min >60 [facility] Comment on above: Non- GFR Calc 32.3 pg 27.0-32.0 [facility] 14.9 % 11.6-14.6 [facility] 55.5 fl 35.1-43.9 [facility] 0.500 % 0.0-0.9 [facility] 0 % 0-5 [facility] 66 mL/min >60 [facility] 80 mL/min >60 [facility] 14.7 RATIO 10-20 [facility] 2.3 mg/dL 1.6-2.6 [facility] 21.0 mmol/L 21.0-32.0 [facility] Platelets bldOrdered By: Dante Narvaez on 07-15-2023 Platelets (Bld) [#/Vol] 134 10*3/uL 150-450 [facility] Serum or plasma calcium carol urement (mass/volume)Ordered By: Elisa Narvaez on 07-15-2023 Calcium [Mass/Vol] 8.9 mg/dL 8.5-10.1 [facility] Serum or plasma creatinine m easurement (mass/volume)Ordered By: Elisa Narvaez on 07-15-2023 Creatinine [Mass/Vol] 1.16 mg/dL 0.70-1.30 [facility] Comment on above: The validity of the calculated GFR & GFRAA in patients over 70 years has not been determined. Clinical correlation is essential. Serum or plasma urea nitroge n measurement (mass/volume)Ordered By: Elisa Narvaez on 07-15-2023 Urea nitrogen [Mass/Vol] 17 mg/dL 7-18 [facility] Thin prep Papanicolaou smear with manual screeningOrdered By: Elisa Narvaez on 07-15-2023 Thin prep Papanicolaou smear with manual screening 5 5-15 [facility] Absolute lymphocyte countOrd ered By: Elisa Narvaez on 07-08-2023 Lymphocytes Auto (Unsp spec) [#/Vol] 0.47 10*3/uL 0.83-4.51 [facility] Basophil percentageOrdered B y: Elisa Narvaez on 07-08-2023 Basophil percentage 156 mg/dL 74-106 [facility] Basophil percentage 136 mmol/L 136-145 [facility] Basophil percentage 4.4 mmol/L 3.5-5.1 [facility] Basophil percentage 109 mmol/L 98-107 [facility] Basophils (Bld) [#/Vol] 7.4 10*3/uL 4.4-11.0 [facility] Basophils (Bld) [#/Vol] 6.1 10*3/uL 2.0-7.7 [facility] Basophils/100 WBC (Bld) 82.6 % 47-70 [facility] Basophils/100 WBC (Bld) 3.9 % 0-5 [facility] Basophils/100 WBC (Bld) 0.8 % 0-1 [facility] Chloride [Moles/Vol] 109 mmol/L 98-107 [facility] Eosinophils/100 WBC (Bld) 3.9 % 0-5 [facility] Glucose [Mass/Vol] 156 mg/dL 74-106 [facility] Comment on above: Fasting Glucose resu lt greater than or equal to 126 mg/dL suggests DIABETES MELLITUS per A.D.A. criteria. Neutrophils (Bld) [#/Vol] 6.1 10*3/uL 2.0-7.7 [facility] Neutrophils/100 WBC (Bld) 82.6 % 47-70 [facility] Potassium [Moles/Vol] 4.4 mmol/L 3.5-5.1 [facility] Sodium [Moles/Vol] 136 mmol/L 136-145 [facility] WBC (Bld) [#/Vol] 7.4 10*3/uL 4.4-11.0 [facility] Blood erythrocytes count (nu mber/volume)Ordered By: Elisa Narvaez on 07-08-2023 RBC (Bld) [#/Vol] 3.97 10*6/uL 4.6-6.2 [facility] Blood hemoglobin measurement (mass/volume)Ordered By: Elisa Narvaez on 07-08-2023 Hemoglobin (Bld) [Mass/Vol] 12.7 g/dL 13.0-16.5 [facility] Blood lymphocytes/100 leukoc ytesOrdered By: Elisa Narvaez on 07-08-2023 Lymphocytes/100 WBC (Bld) 6.3 % 19-41 [facility] Blood monocytes/100 leukocyt esOrdered By: Elisa Narvaez on 07-08-2023 Monocytes/100 WBC (Bld) 5.6 % 0-10 [facility] Blood platelet mean volumeOr dered By: Elisa Narvaez on 07-08-2023 Platelet mean volume (Bld) [Entitic vol] 12.1 fL 6.2-12.0 [facility] Determination of erythrocyte mean corpuscular volume (MCV)Ordered By: Elisa Narvaez on 07-08-2023 MCV (RBC) [Entitic vol] 103.0 fL 80-94 [facility] Hematocrit Auto (Bld) [Volum e fraction]Ordered By: Elisa Narvaez on 07-08-2023 Hematocrit (Bld) [Volume fraction] 40.9 % 40-54 [facility] Laboratory - Chemistry and C hemistry - challengeOrdered By: Elisa Narvaez on 07-08-2023 CO2 [Moles/Vol] 20.0 mmol/L 21.0-32.0 [facility] Magnesium [Mass/Vol] 2.3 mg/dL 1.6-2.6 [facility] Urea nitrogen/Creatinine [Mass ratio] 14.0 mg/mg 10-20 [facility] Laboratory - Hematology and Cell countsOrdered By: Elisa Narvaez on 07-08-2023 Erythrocyte distribution width (RBC) [Entitic vol] 55.7 fL 35.1-43.9 [facility] Erythrocyte distribution width (RBC) [Ratio] 14.8 % 11.6-14.6 [facility] Immature granulocytes/100 WBC (Bld) 0.800 % 0.0-0.9 [facility] Comment on above: IG% - Immature Granu locytes (promyelocytes, myelocytes and metamyelocytes) > 1% indicates that a LEFT SHIFT is Present. MCH (RBC) [Entitic mass] 32.0 pg 27.0-32.0 [facility] Nucleated RBC/100 WBC (Bld) [Ratio] 0 % 0-5 [facility] MCHC Auto (RBC) [Mass/Vol]Or dered By: Elisa Narvaez on 07-08-2023 MCHC (RBC) [Mass/Vol] 31.1 g/dL 32-36 [facility] No Panel InformationOrdered By: Elisa Narvaez on 07-08-2023 Estimated GFR (MDRD) Amer 81 mL/min >60 [facility] Comment on above: GFR Calc Estimated GFR (MDRD) Non-Af Amer 67 mL/min >60 [facility] Comment on above: Non- GFR Calc 32.0 pg 27.0-32.0 [facility] 14.8 % 11.6-14.6 [facility] 55.7 fl 35.1-43.9 [facility] 0.800 % 0.0-0.9 [facility] 0 % 0-5 [facility] 67 mL/min >60 [facility] 81 mL/min >60 [facility] 14.0 RATIO 10-20 [facility] 2.3 mg/dL 1.6-2.6 [facility] 20.0 mmol/L 21.0-32.0 [facility] Platelets bldOrdered By: Dante Narvaez on 07-08-2023 Platelets (Bld) [#/Vol] 147 10*3/uL 150-450 [facility] Serum or plasma calcium carol urement (mass/volume)Ordered By: Elisa Narvaez on 07-08-2023 Calcium [Mass/Vol] 8.9 mg/dL 8.5-10.1 [facility] Serum or plasma creatinine m easurement (mass/volume)Ordered By: lEisa Narvaez on 07-08-2023 Creatinine [Mass/Vol] 1.14 mg/dL 0.70-1.30 [facility] Comment on above: The validity of the calculated GFR & GFRAA in patients over 70 years has not been determined. Clinical correlation is essential. Serum or plasma urea nitroge n measurement (mass/volume)Ordered By: Elisa Narvaez on 07-08-2023 Urea nitrogen [Mass/Vol] 16 mg/dL 7-18 [facility] Thin prep Papanicolaou smear with manual screeningOrdered By: Elisa Narvaez on 07-08-2023 Thin prep Papanicolaou smear with manual screening 7 5-15 [facility] Basophil percentageOrdered B y: Elisa Narvaez on 07-01-2023 Basophil percentage 137 mg/dL 74-106 [facility] Basophil percentage 140 mmol/L 136-145 [facility] Basophil percentage 3.9 mmol/L 3.5-5.1 [facility] Basophil percentage 113 mmol/L 98-107 [facility] Chloride [Moles/Vol] 113 mmol/L 98-107 [facility] Glucose [Mass/Vol] 137 mg/dL 74-106 [facility] Comment on above: Fasting Glucose resu lt greater than or equal to 126 mg/dL suggests DIABETES MELLITUS per A.D.A. criteria. Potassium [Moles/Vol] 3.9 mmol/L 3.5-5.1 [facility] Sodium [Moles/Vol] 140 mmol/L 136-145 [facility] Laboratory - Chemistry and C hemistry - challengeOrdered By: Elisa Narvaez on 07-01-2023 CO2 [Moles/Vol] 22.0 mmol/L 21.0-32.0 [facility] Urea nitrogen/Creatinine [Mass ratio] 11.5 mg/mg 10-20 [facility] No Panel InformationOrdered By: Elisa Narvaez on 07-01-2023 Estimated GFR (MDRD) Amer 70 mL/min >60 [facility] Comment on above: GFR Calc Estimated GFR (MDRD) Non-Af Amer 58 mL/min >60 [facility] Comment on above: Non- GFR Calc 58 mL/min >60 [facility] 70 mL/min >60 [facility] 11.5 RATIO 10-20 [facility] 22.0 mmol/L 21.0-32.0 [facility] Serum or plasma calcium carol urement (mass/volume)Ordered By: Elisa Narvaez on 07-01-2023 Calcium [Mass/Vol] 8.7 mg/dL 8.5-10.1 [facility] Serum or plasma creatinine m easurement (mass/volume)Ordered By: Elisa Narvaez on 07-01-2023 Creatinine [Mass/Vol] 1.30 mg/dL 0.70-1.30 [facility] Comment on above: The validity of the calculated GFR & GFRAA in patients over 70 years has not been determined. Clinical correlation is essential. Serum or plasma urea nitroge n measurement (mass/volume)Ordered By: Elisa Narvaez on 07-01-2023 Urea nitrogen [Mass/Vol] 15 mg/dL 7-18 [facility] Thin prep Papanicolaou smear with manual screeningOrdered By: Elisa Narvaez on 07-01-2023 Thin prep Papanicolaou smear with manual screening 5 5-15 [facility] Basophil percentageOrdered B y: Norrisfay Orellana on 06-26-2023 Ammonia (P) [Moles/Vol] 38.0 umol/L [facility] Basophil percentage 167 mg/dL 74-106 [facility] Basophil percentage 6.9 g/dL 6.4-8.2 [facility] Basophil percentage 1.00 mg/dL 0.20-1.00 [facility] Basophil percentage 137 mmol/L 136-145 [facility] Basophil percentage 4.1 mmol/L 3.5-5.1 [facility] Basophil percentage 106 mmol/L 98-107 [facility] Basophil percentage 38.0 umol/L [facility] Bilirubin [Mass/Vol] 1.00 mg/dL 0.20-1.00 [facility] Comment on above: For patients on eltr ombopag therapy, use of Dimension [place] TBIL is not recommended. Chloride [Moles/Vol] 106 mmol/L 98-107 [facility] Glucose [Mass/Vol] 167 mg/dL 74-106 [facility] Comment on above: Fasting Glucose resu lt greater than or equal to 126 mg/dL suggests DIABETES MELLITUS per A.D.A. criteria. Potassium [Moles/Vol] 4.1 mmol/L 3.5-5.1 [facility] Protein [Mass/Vol] 6.9 g/dL 6.4-8.2 [facility] Sodium [Moles/Vol] 137 mmol/L 136-145 [facility] Laboratory - Chemistry and C hemistry - challengeOrdered By: Norris Orellana on 06-26-2023 ALP [Catalytic activity/Vol] 127 U/L 45-117 [facility] ALT [Catalytic activity/Vol] 34 U/L [facility] CO2 [Moles/Vol] 23.0 mmol/L 21.0-32.0 [facility] Globulin (S) [Mass/Vol] 3.8 g/dL 2.2-4.2 [facility] Urea nitrogen/Creatinine [Mass ratio] 16.5 mg/mg 08-26 [facility] No Panel InformationOrdered By: Norris Orellana on 06-26-2023 Estimated Creatinine Clearance Calc 58.92 ml/min [facility] Estimated GFR (MDRD) Amer 81 mL/min >60 [facility] Comment on above: GFR Calc Estimated GFR (MDRD) Non-Af Amer 67 mL/min >60 [facility] Comment on above: Non- GFR Calc 67 mL/min >60 [facility] 81 mL/min >60 [facility] 58.92 ml/min [facility] 16.5 RATIO 08-26 [facility] 3.8 g/dL 2.2-4.2 [facility] 127 U/L - [facility] 34 U/L [facility] 23.0 mmol/L 21.0-32.0 [facility] Serum or plasma albumin carol urement (mass/volume)Ordered By: Norris Orellana on 06-26-2023 Albumin [Mass/Vol] 3.1 g/dL 3.2-5.0 [facility] Serum or plasma albumin/glob ulin mass ratioOrdered By: Norris Orellana on 06-26-2023 Albumin/Globulin [Mass ratio] 0.8 {ratio} 0.9-2.4 [facility] Serum or plasma calcium carol urement (mass/volume)Ordered By: Norris Orellana on 06-26-2023 Calcium [Mass/Vol] 9.0 mg/dL 8.5-10.1 [facility] Serum or plasma creatinine m easurement (mass/volume)Ordered By: Norris Orellana on 06-26-2023 Creatinine [Mass/Vol] 1.15 mg/dL 0.70-1.30 [facility] Comment on above: The validity of the calculated GFR & GFRAA in patients over 70 years has not been determined. Clinical correlation is essential. Serum or plasma urea nitroge n measurement (mass/volume)Ordered By: Norris Orellana on 06-26-2023 Urea nitrogen [Mass/Vol] 19 mg/dL 7-18 [facility] Thin prep Papanicolaou smear with manual screeningOrdered By: Norris Orellana on 06-26-2023 Thin prep Papanicolaou smear with manual screening 28 U/L 15-37 [facility] Thin prep Papanicolaou smear with manual screening 8 5-15 [facility] Absolute lymphocyte countOrd ered By: Norris Orellana on 06-25-2023 Lymphocytes Auto (Unsp spec) [#/Vol] 0.47 10*3/uL 0.83-4.51 [facility] Basophil percentageOrdered B y: Norris Orellana on 06-25-2023 Basophils (Bld) [#/Vol] 8.2 10*3/uL 4.4-11.0 [facility] Basophils (Bld) [#/Vol] 6.6 10*3/uL 2.0-7.7 [facility] Basophils/100 WBC (Bld) 81.0 % 47-70 [facility] Basophils/100 WBC (Bld) 4.2 % 0-5 [facility] Basophils/100 WBC (Bld) 0.7 % 0-1 [facility] Eosinophils/100 WBC (Bld) 4.2 % 0-5 [facility] Neutrophils (Bld) [#/Vol] 6.6 10*3/uL 2.0-7.7 [facility] Neutrophils/100 WBC (Bld) 81.0 % 47-70 [facility] WBC (Bld) [#/Vol] 8.2 10*3/uL 4.4-11.0 [facility] Blood erythrocytes count (nu mber/volume)Ordered By: Norris Orellana on 06-25-2023 RBC (Bld) [#/Vol] 4.06 10*6/uL 4.6-6.2 [facility] Blood hemoglobin measurement (mass/volume)Ordered By: Norris Orellana on 06-25-2023 Hemoglobin (Bld) [Mass/Vol] 13.1 g/dL 13.0-16.5 [facility] Blood lymphocytes/100 leukoc ytesOrdered By: Norris Orellana on 06-25-2023 Lymphocytes/100 WBC (Bld) 5.7 % 19-41 [facility] Blood manual differential co mment interpretation (narrative result)Ordered By: Norris Orellana on 06-25-2023 Manual differential comment Timur (Bld) [Interp] SCANNED [facility] Comment on above: LYMPHOPENIA NOTED Blood monocytes/100 leukocyt esOrdered By: Norris Orellana on 06-25-2023 Monocytes/100 WBC (Bld) 7.7 % 0-10 [facility] Blood platelet mean volumeOr dered By: Norris Orellana on 06-25-2023 Platelet mean volume (Bld) [Entitic vol] 10.8 fL 6.2-12.0 [facility] Determination of erythrocyte mean corpuscular volume (MCV)Ordered By: Norris Orellana on 06-25-2023 MCV (RBC) [Entitic vol] 97.8 fL 80-94 [facility] Glucose Glucometer (BldC) [M ass/Vol]Ordered By: Norris Orellana on 06-25-2023 Glucose [Mass/Vol] 144 mg/dL 74-106 [facility] Comment on above: MANAGEMENT OF PATIEN T CARE PER NURSING PROTOCOL Hematocrit Auto (Bld) [Volum e fraction]Ordered By: Norris Orellana on 06-25-2023 Hematocrit (Bld) [Volume fraction] 39.7 % 40-54 [facility] Laboratory - Hematology and Cell countsOrdered By: Norris Orellana on 06-25-2023 Erythrocyte distribution width (RBC) [Entitic vol] 49.6 fL 35.1-43.9 [facility] Erythrocyte distribution width (RBC) [Ratio] 13.7 % 11.6-14.6 [facility] Immature granulocytes/100 WBC (Bld) 0.700 % 0.0-0.9 [facility] Comment on above: IG% - Immature Granu locytes (promyelocytes, myelocytes and metamyelocytes) > 1% indicates that a LEFT SHIFT is Present. MCH (RBC) [Entitic mass] 32.3 pg 27.0-32.0 [facility] Nucleated RBC/100 WBC (Bld) [Ratio] 0 % 0-5 [facility] MCHC Auto (RBC) [Mass/Vol]Or dered By: Norris Orellana on 06-25-2023 MCHC (RBC) [Mass/Vol] 33.0 g/dL 32-36 [facility] No Panel InformationOrdered By: Norris Orellana on 06-25-2023 32.3 pg 27.0-32.0 [facility] 13.7 % 11.6-14.6 [facility] 49.6 fl 35.1-43.9 [facility] 0.700 % 0.0-0.9 [facility] 0 % 0-5 [facility] Platelets bldOrdered By: Carmine Orellana on 06-25-2023 Platelets (Bld) [#/Vol] 174 10*3/uL 150-450 [facility] Basophil percentageOrdered B y: Norris Orellana on 06-23-2023 Basophil percentage 2.3 mg/dL 2.5-4.9 [facility] Direct bilirubinOrdered By: Norris Orellana on 06-23-2023 Bilirubin.direct [Mass/Vol] 0.42 mg/dL 0.00-0.30 [facility] Laboratory - Chemistry and C hemistry - challengeOrdered By: Norris Orellana on 06-23-2023 Magnesium [Mass/Vol] 2.2 mg/dL 1.6-2.6 [facility] No Panel InformationOrdered By: Norris Orellana on 06-23-2023 2.2 mg/dL 1.6-2.6 [facility] Erythrocyte sedimentation ra teOrdered By: Quynh Araya on 06-22-2023 ESR (Bld) [Velocity] 24 mm/h 0-20 [facility] Serum or plasma C reactive p rotein measurement (mass/volume)Ordered By: Quynh Araya on 06-22-2023 CRP [Mass/Vol] 76.00 mg/L 0.0-3.0 [facility] Comment on above: C-Reactive Protein ( CRP) provides useful information for thediagnosis, therapy and monitoring of inflammatory processesand associated diseases. For the evaluation of Relative Riskfor Cardiovascular Disease, a High Sensitivity CRP (HSCRP)should be ordered. Basophil percentageOrdered B y: Juan Conte on 06-21-2023 Basophil percentage 0-5 SEEN /hpf 0-5 [facility] Basophil percentage 116 mg/dL 74-106 [facility] Basophil percentage 142 mmol/L 136-145 [facility] Basophil percentage 4.2 mmol/L 3.5-5.1 [facility] Basophil percentage 107 mmol/L 98-107 [facility] Basophil percentage 30.0 umol/L 11-32 [facility] Basophils (Bld) [#/Vol] 9.2 10*3/uL 4.4-11.0 [facility] Bilirubin Test strip Ql (U)O rdered By: Juan Conte on 06-21-2023 Bilirubin Ql (U) 1 mg/dL Negative [facility] Comment on above: COLOR OF URINE MAY A FFECT DIPSTICK RESULTS. Blood erythrocytes count (nu mber/volume)Ordered By: Juan Conte on 06-21-2023 RBC (Bld) [#/Vol] 4.65 10*6/uL 4.6-6.2 [facility] Blood hemoglobin measurement (mass/volume)Ordered By: Juan Conte on 06-21-2023 Hemoglobin (Bld) [Mass/Vol] 15.0 g/dL 13.0-16.5 [facility] Blood platelet mean volumeOr dered By: Juan Conte on 06-21-2023 Platelet mean volume (Bld) [Entitic vol] 11.5 fL 6.2-12.0 [facility] Determination of erythrocyte mean corpuscular volume (MCV)Ordered By: Juan Conte on 06-21-2023 MCV (RBC) [Entitic vol] 99.6 fL 80-94 [facility] Hematocrit Auto (Bld) [Volum e fraction]Ordered By: Juan Conte on 06-21-2023 Hematocrit (Bld) [Volume fraction] 46.3 % 40-54 [facility] Influenza virus A and B and SARS-CoV-2 (COVID-19) Ag panel - Upper respiratory specimOrdered By: Juna Conte on 06-21-2023 SARS-CoV-2 (COVID-19) RNA ANUJ+probe Ql (Resp) [facility] SARS-CoV-2 (COVID-19) RNA ANUJ+probe Ql (Resp) [facility] Ketones Test strip Ql (U)Ord ered By: Juan Conte on 06-21-2023 Ketones Ql (U) 5 mg/dl Negative [facility] Laboratory - Chemistry and C hemistry - challengeOrdered By: Juan Conte on 06-21-2023 Natriuretic peptide B (Bld) [Mass/Vol] 43.4 pg/mL 0-100 [facility] Lipase [Catalytic activity/Vol] U/L 13-75 [facility] Comment on above: Please note:LIPASE r evised reference range effective 23. New Lipase methodology. Expected to produce lower values than the previous assay method. NEW Reference Range: 13 - 75 U/L [facility] Auto (RBC) [Mass/Vol]Or dered By: Juan Conte on 06-21-2023 MCHC (RBC) [Mass/Vol] 32.4 g/dL 32-36 [facility] Mucus LM Ql (Urine sed)Order ed By: Juan Conte on 06-21-2023 Mucus Ql (Urine sed) 0 SEEN /hpf [facility] Nitrite Test strip Ql (U)Ord ered By: Juan Conte on 06-21-2023 Nitrite Ql (U) Negative Negative [facility] No Panel InformationOrdered By: Juan Conte on 06-21-2023 43.4 pg/mL 0-100 [facility] Troponin I High Sensitivity 104 pg/mL 3.0-78.0 [facility] Comment on above: Please Note: New [place] t Units and Gender Specific Reference Ranges. For more information see Policy Stat Procedure [place] High Sensitivity Troponin (TNIH) and attachments. 32.3 pg 27.0-32.0 [facility] 14.4 % 11.6-14.6 [facility] 50.8 fl 35.1-43.9 [facility] 30 mL/min >60 [facility] 36 mL/min >60 [facility] 29.08 ml/min [facility] 15.0 RATIO 10-20 [facility] < 10 U/L 13-75 [facility] 104 pg/mL 3.0-78.0 [facility] 27.0 mmol/L 21.0-32.0 [facility] Platelets bldOrdered By: Laurie Conte on 06-21-2023 Platelets (Bld) [#/Vol] 204 10*3/uL 150-450 [facility] Protein Test strip Ql (U)Ord ered By: Juan Conte on 06-21-2023 Protein Ql (U) 30 mg/dl Negative [facility] Serum or plasma calcium carol urement (mass/volume)Ordered By: Juan Conte on 06-21-2023 Calcium [Mass/Vol] 9.7 mg/dL 8.5-10.1 [facility] Serum or plasma creatinine m easurement (mass/volume)Ordered By: Juan Conte on 06-21-2023 Creatinine [Mass/Vol] 2.33 mg/dL 0.70-1.30 [facility] Serum or plasma urea nitroge n measurement (mass/volume)Ordered By: Juan Conte on 06-21-2023 Urea nitrogen [Mass/Vol] 35 mg/dL 7-18 [facility] Squamous epithelial cells de tection in urine sediment by light microscopyOrdered By: Juan Conte on 06-21-2023 Epithelial cells.squamous LM Ql (Urine sed) 0-5 SEEN /hpf 0-5 [facility] Thin prep Papanicolaou smear with manual screeningOrdered By: Juan Conte on 06-21-2023 Thin prep Papanicolaou smear with manual screening 8 5-15 [facility] Urine blood detectionOrdered By: Juan Conte on 06-21-2023 RBC Ql (U) Negative Negative [facility] RBC Ql (U) 0-5 SEEN /hpf 0-5 [facility] Urine clarityOrdered By: Laurie Conte on 06-21-2023 Clarity (U) Clear Clear [facility] Urine color determinationOrd ered By: Juan Conte on 06-21-2023 Color (U) Yellow Yellow [facility] Urine glucose detectionOrder ed By: Juan Conte on 06-21-2023 Glucose Ql (U) Normal mg/dl Normal [facility] Urine leukocyte esterase det ection by dipstickOrdered By: Juan Conte on 06-21-2023 Leukocyte esterase Test strip Ql (U) 25 /ul Negative [facility] Urine pHOrdered By: Juan simental on 06-21-2023 pH (U) 6.0 [pH] 5.0 - 8.0 [facility] Urine sediment bacteria coun t by microscopy (number/high power field)Ordered By: Juan Conte on 06-21-2023 Bacteria LM.HPF (Urine sed) [#/Area] RARE /hpf None Seen [facility] Urine specific gravity measu rementOrdered By: Juan Conte on 06-21-2023 Specific gravity (U) [Rel density] 1.020 1.002-1.03 0 [facility] Urobilinogen Auto test strip Ql (U)Ordered By: Juan Conte on 06-21-2023 Urobilinogen Ql (U) 1 mg/dl Normal [facility] Absolute lymphocyte countOrd ered By: Elisa Narvaez on 06-20-2023 Lymphocytes Auto (Unsp spec) [#/Vol] 0.39 10*3/uL 0.83-4.51 [facility] Basophil percentageOrdered B y: Elisa Narvaez on 06-20-2023 Basophil percentage 188 mg/dL 74-106 [facility] Basophil percentage 140 mmol/L 136-145 [facility] Basophil percentage 3.8 mmol/L 3.5-5.1 [facility] Basophil percentage 108 mmol/L 98-107 [facility] Basophils (Bld) [#/Vol] 8.2 10*3/uL 4.4-11.0 [facility] Basophils (Bld) [#/Vol] 6.9 10*3/uL 2.0-7.7 [facility] Basophils/100 WBC (Bld) 84.0 % 47-70 [facility] Basophils/100 WBC (Bld) 3.6 % 0-5 [facility] Basophils/100 WBC (Bld) 0.5 % 0-1 [facility] Blood erythrocytes count (nu mber/volume)Ordered By: Elisa Narvaez on 06-20-2023 RBC (Bld) [#/Vol] 4.26 10*6/uL 4.6-6.2 [facility] Blood hemoglobin measurement (mass/volume)Ordered By: Elisa Narvaez on 06-20-2023 Hemoglobin (Bld) [Mass/Vol] 13.9 g/dL 13.0-16.5 [facility] Blood lymphocytes/100 leukoc ytesOrdered By: Elisa Narvaez on 06-20-2023 Lymphocytes/100 WBC (Bld) 4.8 % 19-41 [facility] Blood monocytes/100 leukocyt esOrdered By: Elisa Narvaez on 06-20-2023 Monocytes/100 WBC (Bld) 6.4 % 0-10 [facility] Blood platelet mean volumeOr dered By: Elisa Narvaez on 06-20-2023 Platelet mean volume (Bld) [Entitic vol] 11.5 fL 6.2-12.0 [facility] Determination of erythrocyte mean corpuscular volume (MCV)Ordered By: Elisa Narvaez on 06-20-2023 MCV (RBC) [Entitic vol] 98.4 fL 80-94 [facility] Hematocrit Auto (Bld) [Volum e fraction]Ordered By: Elisa Narvaez on 06-20-2023 Hematocrit (Bld) [Volume fraction] 41.9 % 40-54 [facility] MCHC Auto (RBC) [Mass/Vol]Or dered By: Elisa Narvaez on 06-20-2023 MCHC (RBC) [Mass/Vol] 33.2 g/dL 32-36 [facility] No Panel InformationOrdered By: Elisa Narvaez on 06-20-2023 32.6 pg 27.0-32.0 [facility] 14.0 % 11.6-14.6 [facility] 48.9 fl 35.1-43.9 [facility] 0.700 % 0.0-0.9 [facility] 0 % 0-5 [facility] 58 mL/min >60 [facility] 70 mL/min >60 [facility] 16.9 RATIO 10-20 [facility] 2.4 mg/dL 1.6-2.6 [facility] 25.0 mmol/L 21.0-32.0 [facility] Platelets bldOrdered By: Dante Narvaez on 06-20-2023 Platelets (Bld) [#/Vol] 178 10*3/uL 150-450 [facility] Serum or plasma calcium carol urement (mass/volume)Ordered By: Elisa Narvaez on 06-20-2023 Calcium [Mass/Vol] 9.6 mg/dL 8.5-10.1 [facility] Serum or plasma creatinine m easurement (mass/volume)Ordered By: Elisa Narvaez on 06-20-2023 Creatinine [Mass/Vol] 1.30 mg/dL 0.70-1.30 [facility] Serum or plasma urea nitroge n measurement (mass/volume)Ordered By: Elisa Narvaez on 06-20-2023 Urea nitrogen [Mass/Vol] 22 mg/dL 7-18 [facility] Thin prep Papanicolaou smear with manual screeningOrdered By: Elisa Narvaez on 06-20-2023 Thin prep Papanicolaou smear with manual screening 7 5-15 [facility] Clostridium difficile detect ion by polymerase chain reactionOrdered By: Elisa Narvaez on 06-14-2023 C. difficile DNA ANUJ+probe Ql (Unsp spec) [facility] Stool Clostridium difficile detectionOrdered By: Elisa Narvaez on 06-14-2023 C. difficile Ql (Stl) [facility] Absolute lymphocyte countOrd ered By: Elisa Narvaez on 06-13-2023 Lymphocytes Auto (Unsp spec) [#/Vol] 0.36 10*3/uL 0.83-4.51 [facility] Basophil percentageOrdered B y: Elisa Narvaez on 06-13-2023 Basophil percentage 326 mg/dL 74-106 [facility] Basophil percentage 141 mmol/L 136-145 [facility] Basophil percentage 3.6 mmol/L 3.5-5.1 [facility] Basophil percentage 113 mmol/L 98-107 [facility] Basophils (Bld) [#/Vol] 7.2 10*3/uL 4.4-11.0 [facility] Basophils (Bld) [#/Vol] 6.1 10*3/uL 2.0-7.7 [facility] Basophils/100 WBC (Bld) 84.8 % 47-70 [facility] Basophils/100 WBC (Bld) 3.6 % 0-5 [facility] Basophils/100 WBC (Bld) 0.6 % 0-1 [facility] Blood erythrocytes count (nu mber/volume)Ordered By: Elisa Narvaez on 06-13-2023 RBC (Bld) [#/Vol] 3.72 10*6/uL 4.6-6.2 [facility] Blood hemoglobin measurement (mass/volume)Ordered By: Eilsa Narvaez on 06-13-2023 Hemoglobin (Bld) [Mass/Vol] 11.8 g/dL 13.0-16.5 [facility] Blood lymphocytes/100 leukoc ytesOrdered By: Elisa Narvaez on 06-13-2023 Lymphocytes/100 WBC (Bld) 5.0 % 19-41 [facility] Blood monocytes/100 leukocyt esOrdered By: Elisa Narvaez on 06-13-2023 Monocytes/100 WBC (Bld) 4.5 % 0-10 [facility] Blood platelet mean volumeOr dered By: Elisa Narvaez on 06-13-2023 Platelet mean volume (Bld) [Entitic vol] 11.5 fL 6.2-12.0 [facility] Determination of erythrocyte mean corpuscular volume (MCV)Ordered By: Elisa aNrvaez on 06-13-2023 MCV (RBC) [Entitic vol] 100.0 fL 80-94 [facility] Hematocrit Auto (Bld) [Volum e fraction]Ordered By: Elisa Narvaez on 06-13-2023 Hematocrit (Bld) [Volume fraction] 37.2 % 40-54 [facility] MCHC Auto (RBC) [Mass/Vol]Or dered By: Elisa Narvaez on 06-13-2023 MCHC (RBC) [Mass/Vol] 31.7 g/dL 32-36 [facility] No Panel InformationOrdered By: Elisa Narvaez on 06-13-2023 31.7 pg 27.0-32.0 [facility] 13.5 % 11.6-14.6 [facility] 49.7 fl 35.1-43.9 [facility] 1.500 % 0.0-0.9 [facility] 0 % 0-5 [facility] 57 mL/min >60 [facility] 69 mL/min >60 [facility] 12.1 RATIO 10-20 [facility] 1.9 mg/dL 1.6-2.6 [facility] 21.0 mmol/L 21.0-32.0 [facility] Platelets bldOrdered By: Dante Narvaez on 06-13-2023 Platelets (Bld) [#/Vol] 145 10*3/uL 150-450 [facility] Serum or plasma calcium carol urement (mass/volume)Ordered By: Elisa Narvaez on 06-13-2023 Calcium [Mass/Vol] 8.3 mg/dL 8.5-10.1 [facility] Serum or plasma creatinine m easurement (mass/volume)Ordered By: Elisa Narvaez on 06-13-2023 Creatinine [Mass/Vol] 1.32 mg/dL 0.70-1.30 [facility] Serum or plasma urea nitroge n measurement (mass/volume)Ordered By: Elisa Narvaez on 06-13-2023 Urea nitrogen [Mass/Vol] 16 mg/dL 7-18 [facility] Thin prep Papanicolaou smear with manual screeningOrdered By: Elisa Narvaez on 06-13-2023 Thin prep Papanicolaou smear with manual screening 7 5-15 [facility] Absolute lymphocyte countOrd ered By: Elisa Narvaez on 06-06-2023 Lymphocytes Auto (Unsp spec) [#/Vol] 0.50 10*3/uL 0.83-4.51 [facility] Basophil percentageOrdered B y: Elisa Narvaez on 06-06-2023 Basophil percentage 118 mg/dL 74-106 [facility] Basophil percentage 143 mmol/L 136-145 [facility] Basophil percentage 3.2 mmol/L 3.5-5.1 [facility] Basophil percentage 114 mmol/L 98-107 [facility] Basophil percentage 34.0 umol/L 11-32 [facility] Basophils (Bld) [#/Vol] 8.5 10*3/uL 4.4-11.0 [facility] Basophils (Bld) [#/Vol] 7.0 10*3/uL 2.0-7.7 [facility] Basophils/100 WBC (Bld) 82.7 % 47-70 [facility] Basophils/100 WBC (Bld) 2.4 % 0-5 [facility] Basophils/100 WBC (Bld) 0.4 % 0-1 [facility] Blood erythrocytes count (nu mber/volume)Ordered By: Elisa Narvaez on 06-06-2023 RBC (Bld) [#/Vol] 4.03 10*6/uL 4.6-6.2 [facility] Blood hemoglobin measurement (mass/volume)Ordered By: Elisa Narvaez on 06-06-2023 Hemoglobin (Bld) [Mass/Vol] 13.1 g/dL 13.0-16.5 [facility] Blood lymphocytes/100 leukoc ytesOrdered By: Elisa Narvaez on 06-06-2023 Lymphocytes/100 WBC (Bld) 5.9 % 19-41 [facility] Blood manual differential co mment interpretation (narrative result)Ordered By: Elisa Narvaez on 06-06-2023 Manual differential comment Timur (Bld) [Interp] SCANNED [facility] Blood monocytes/100 leukocyt esOrdered By: Elisa Narvaez on 06-06-2023 Monocytes/100 WBC (Bld) 7.9 % 0-10 [facility] Blood platelet mean volumeOr dered By: Elisa Narvaez on 06-06-2023 Platelet mean volume (Bld) [Entitic vol] 11.7 fL 6.2-12.0 [facility] Determination of erythrocyte mean corpuscular volume (MCV)Ordered By: Elisa Narvaez on 06-06-2023 MCV (RBC) [Entitic vol] 99.3 fL 80-94 [facility] Hematocrit Auto (Bld) [Volum e fraction]Ordered By: Elisa Narvaez on 06-06-2023 Hematocrit (Bld) [Volume fraction] 40.0 % 40-54 [facility] MCHC Auto (RBC) [Mass/Vol]Or dered By: Elisa Narvaez on 06-06-2023 MCHC (RBC) [Mass/Vol] 32.8 g/dL 32-36 [facility] No Panel InformationOrdered By: Elisa Narvaez on 06-06-2023 32.5 pg 27.0-32.0 [facility] 13.8 % 11.6-14.6 [facility] 50.6 fl 35.1-43.9 [facility] 0.700 % 0.0-0.9 [facility] 0 % 0-5 [facility] 48 mL/min >60 [facility] 58 mL/min >60 [facility] 23.0 RATIO 10-20 [facility] 2.4 mg/dL 1.6-2.6 [facility] 23.0 mmol/L 21.0-32.0 [facility] Platelets bldOrdered By: Dante Narvaez on 06-06-2023 Platelets (Bld) [#/Vol] 152 10*3/uL 150-450 [facility] Serum or plasma calcium carol urement (mass/volume)Ordered By: Elisa Narvaez on 06-06-2023 Calcium [Mass/Vol] 8.9 mg/dL 8.5-10.1 [facility] Serum or plasma creatinine m easurement (mass/volume)Ordered By: Elisa Narvaez on 06-06-2023 Creatinine [Mass/Vol] 1.52 mg/dL 0.70-1.30 [facility] Serum or plasma urea nitroge n measurement (mass/volume)Ordered By: Elisa Narvaez on 06-06-2023 Urea nitrogen [Mass/Vol] 35 mg/dL 7-18 [facility] Thin prep Papanicolaou smear with manual screeningOrdered By: Elisa Narvaez on 06-06-2023 Thin prep Papanicolaou smear with manual screening 6 5-15 [facility] Absolute lymphocyte countOrd ered By: Elisa Narvaez on 05-25-2023 Lymphocytes Auto (Unsp spec) [#/Vol] 0.35 10*3/uL 0.83-4.51 [facility] Basophil percentageOrdered B y: Elisa Narvaez on 05-25-2023 Basophil percentage 169 mg/dL 74-106 [facility] Basophil percentage 140 mmol/L 136-145 [facility] Basophil percentage 3.8 mmol/L 3.5-5.1 [facility] Basophil percentage 109 mmol/L 98-107 [facility] Basophils (Bld) [#/Vol] 4.0 10*3/uL 4.4-11.0 [facility] Basophils (Bld) [#/Vol] 3.2 10*3/uL 2.0-7.7 [facility] Basophils/100 WBC (Bld) 77.9 % 47-70 [facility] Basophils/100 WBC (Bld) 5.2 % 0-5 [facility] Basophils/100 WBC (Bld) 0.5 % 0-1 [facility] Blood erythrocytes count (nu mber/volume)Ordered By: Elisa Narvaez on 05-25-2023 RBC (Bld) [#/Vol] 3.69 10*6/uL 4.6-6.2 [facility] Blood hemoglobin measurement (mass/volume)Ordered By: Elisa Narvaez on 05-25-2023 Hemoglobin (Bld) [Mass/Vol] 12.0 g/dL 13.0-16.5 [facility] Blood lymphocytes/100 leukoc ytesOrdered By: Elisa Narvaez on 05-25-2023 Lymphocytes/100 WBC (Bld) 8.7 % 19-41 [facility] Blood monocytes/100 leukocyt esOrdered By: Elisa Narvaez on 05-25-2023 Monocytes/100 WBC (Bld) 6.7 % 0-10 [facility] Blood platelet mean volumeOr dered By: Elisa Narvaez on 05-25-2023 Platelet mean volume (Bld) [Entitic vol] 12.2 fL 6.2-12.0 [facility] Determination of erythrocyte mean corpuscular volume (MCV)Ordered By: Elisa Narvaez on 05-25-2023 MCV (RBC) [Entitic vol] 101.1 fL 80-94 [facility] Hematocrit Auto (Bld) [Volum e fraction]Ordered By: Elisa Narvaez on 05-25-2023 Hematocrit (Bld) [Volume fraction] 37.3 % 40-54 [facility] Hypochromatic red blood cell detectionOrdered By: Elisa Narvaez on 05-25-2023 Hypochromia Ql (Bld) 4.0 [facility] MCHC Auto (RBC) [Mass/Vol]Or dered By: Elisa Narvaez on 05-25-2023 MCHC (RBC) [Mass/Vol] 32.2 g/dL 32-36 [facility] No Panel InformationOrdered By: Elisa Narvaez on 05-25-2023 32.5 pg 27.0-32.0 [facility] 14.0 % 11.6-14.6 [facility] 51.3 fl 35.1-43.9 [facility] 1.000 % 0.0-0.9 [facility] 0 % 0-5 [facility] 50 mL/min >60 [facility] 60 mL/min >60 [facility] 17.6 RATIO 10-20 [facility] 2.1 mg/dL 1.6-2.6 [facility] 25.0 mmol/L 21.0-32.0 [facility] 1077 pg/mL 211-911 [facility] 47.9 ng/mL [facility] Platelets bldOrdered By: Dante Narvaez on 05-25-2023 Platelets (Bld) [#/Vol] 110 10*3/uL 150-450 [facility] Review by pathologistOrdered By: Elisa Narvaez on 05-25-2023 Pathologist review Timur (Unsp spec) [Interp] Reviewed [facility] Serum or plasma calcium carol urement (mass/volume)Ordered By: Elisa Narvaez on 05-25-2023 Calcium [Mass/Vol] 8.6 mg/dL 8.5-10.1 [facility] Serum or plasma creatinine m easurement (mass/volume)Ordered By: Elisa Narvaez on 05-25-2023 Creatinine [Mass/Vol] 1.48 mg/dL 0.70-1.30 [facility] Serum or plasma urea nitroge n measurement (mass/volume)Ordered By: Elisaely Narvaez on 05-25-2023 Urea nitrogen [Mass/Vol] 26 mg/dL 7-18 [facility] Thin prep Papanicolaou smear with manual screeningOrdered By: Elisa Narvaez on 05-25-2023 Thin prep Papanicolaou smear with manual screening 6 5-15 [facility] Whole blood hemoglobin A1c/t otal hemoglobin ratio (mass fraction)Ordered By: Elisa Narvaez on 05-25-2023 HbA1c (Bld) [Mass fraction] 8.3 % 3.8-5.6 [facility] Basophil percentageOrdered B y: Azael Jackson on 05-20-2023 Basophil percentage 40.0 umol/L 11-32 [facility] Absolute lymphocyte countOrd ered By: Azael Jackson on 05-18-2023 Lymphocytes Auto (Unsp spec) [#/Vol] 0.44 10*3/uL 0.83-4.51 [facility] Basophil percentageOrdered B y: Azael Jackson on 05-18-2023 Basophil percentage 196 mg/dL 74-106 [facility] Basophil percentage 6.6 g/dL 6.4-8.2 [facility] Basophil percentage 0.70 mg/dL 0.20-1.00 [facility] Basophil percentage 140 mmol/L 136-145 [facility] Basophil percentage 3.7 mmol/L 3.5-5.1 [facility] Basophil percentage 110 mmol/L 98-107 [facility] Basophil percentage 41.0 umol/L 11-32 [facility] Basophils (Bld) [#/Vol] 5.9 10*3/uL 4.4-11.0 [facility] Basophils (Bld) [#/Vol] 4.8 10*3/uL 2.0-7.7 [facility] Basophils/100 WBC (Bld) 81.4 % 47-70 [facility] Basophils/100 WBC (Bld) 3.4 % 0-5 [facility] Basophils/100 WBC (Bld) 0.5 % 0-1 [facility] Blood erythrocytes count (nu mber/volume)Ordered By: Azael Jackson on 05-18-2023 RBC (Bld) [#/Vol] 3.82 10*6/uL 4.6-6.2 [facility] Blood hemoglobin measurement (mass/volume)Ordered By: Azael Jackson on 05-18-2023 Hemoglobin (Bld) [Mass/Vol] 12.5 g/dL 13.0-16.5 [facility] Blood lymphocytes/100 leukoc ytesOrdered By: Azael Jackson on 05-18-2023 Lymphocytes/100 WBC (Bld) 7.4 % 19-41 [facility] Blood monocytes/100 leukocyt esOrdered By: Azael Jackson on 05-18-2023 Monocytes/100 WBC (Bld) 6.3 % 0-10 [facility] Blood platelet mean volumeOr dered By: Azael Jackson on 05-18-2023 Platelet mean volume (Bld) [Entitic vol] 12.0 fL 6.2-12.0 [facility] Determination of erythrocyte mean corpuscular volume (MCV)Ordered By: Azael Jackson on 05-18-2023 MCV (RBC) [Entitic vol] 100.0 fL 80-94 [facility] Hematocrit Auto (Bld) [Volum e fraction]Ordered By: Azael Jackson on 05-18-2023 Hematocrit (Bld) [Volume fraction] 38.2 % 40-54 [facility] MCHC Auto (RBC) [Mass/Vol]Or dered By: Azael Jackson on 05-18-2023 MCHC (RBC) [Mass/Vol] 32.7 g/dL 32-36 [facility] No Panel InformationOrdered By: Azael Jackson on 05-18-2023 32.7 pg 27.0-32.0 [facility] 14.3 % 11.6-14.6 [facility] 52.8 fl 35.1-43.9 [facility] 1.000 % 0.0-0.9 [facility] 0 % 0-5 [facility] 43 mL/min >60 [facility] 52 mL/min >60 [facility] 21.6 RATIO 10-20 [facility] 3.6 g/dL 2.2-4.2 [facility] 102 U/L 45-117 [facility] 20 U/L 16-61 [facility] 23.0 mmol/L 21.0-32.0 [facility] Platelets bldOrdered By: Leonardo Jackson on 05-18-2023 Platelets (Bld) [#/Vol] 83 10*3/uL 150-450 [facility] Serum or plasma albumin carol urement (mass/volume)Ordered By: Azael Jackson on 05-18-2023 Albumin [Mass/Vol] 3.0 g/dL 3.2-5.0 [facility] Serum or plasma albumin/glob ulin mass ratioOrdered By: Azael Jackson on 05-18-2023 Albumin/Globulin [Mass ratio] 0.8 {ratio} 0.9-2.4 [facility] Serum or plasma calcium carol urement (mass/volume)Ordered By: Azael Jackson on 05-18-2023 Calcium [Mass/Vol] 8.7 mg/dL 8.5-10.1 [facility] Serum or plasma creatinine m easurement (mass/volume)Ordered By: Azael Jackson on 05-18-2023 Creatinine [Mass/Vol] 1.67 mg/dL 0.70-1.30 [facility] Serum or plasma urea nitroge n measurement (mass/volume)Ordered By: Azael Jackson on 05-18-2023 Urea nitrogen [Mass/Vol] 36 mg/dL 7-18 [facility] Thin prep Papanicolaou smear with manual screeningOrdered By: Azael Jackson on 05-18-2023 Thin prep Papanicolaou smear with manual screening 12 U/L 15-37 [facility] Thin prep Papanicolaou smear with manual screening 7 5-15 [facility] Absolute lymphocyte countOrd ered By: Azael Jackson on 05-11-2023 Lymphocytes Auto (Unsp spec) [#/Vol] 0.49 10*3/uL 0.83-4.51 [facility] Basophil percentageOrdered B y: Azael Jackson on 05-11-2023 Basophil percentage 270 mg/dL 74-106 [facility] Basophil percentage 6.9 g/dL 6.4-8.2 [facility] Basophil percentage 0.60 mg/dL 0.20-1.00 [facility] Basophil percentage 137 mmol/L 136-145 [facility] Basophil percentage 4.0 mmol/L 3.5-5.1 [facility] Basophil percentage 107 mmol/L 98-107 [facility] Basophil percentage 14.0 umol/L 11-32 [facility] Basophils (Bld) [#/Vol] 8.7 10*3/uL 4.4-11.0 [facility] Basophils (Bld) [#/Vol] 7.5 10*3/uL 2.0-7.7 [facility] Basophils/100 WBC (Bld) 86.3 % 47-70 [facility] Basophils/100 WBC (Bld) 1.6 % 0-5 [facility] Basophils/100 WBC (Bld) 0.3 % 0-1 [facility] Blood erythrocytes count (nu mber/volume)Ordered By: Azael Jackson on 05-11-2023 RBC (Bld) [#/Vol] 4.05 10*6/uL 4.6-6.2 [facility] Blood hemoglobin measurement (mass/volume)Ordered By: Azael Jackson on 05-11-2023 Hemoglobin (Bld) [Mass/Vol] 13.3 g/dL 13.0-16.5 [facility] Blood lymphocytes/100 leukoc ytesOrdered By: Azael Jackson on 05-11-2023 Lymphocytes/100 WBC (Bld) 5.6 % 19-41 [facility] Blood manual differential co mment interpretation (narrative result)Ordered By: Azael Jackson on 05-11-2023 Manual differential comment Timur (Bld) [Interp] SCANNED [facility] Blood monocytes/100 leukocyt esOrdered By: Azael Jackson on 05-11-2023 Monocytes/100 WBC (Bld) 4.9 % 0-10 [facility] Blood platelet mean volumeOr dered By: Azael Jackson on 05-11-2023 Platelet mean volume (Bld) [Entitic vol] 12.1 fL 6.2-12.0 [facility] Determination of erythrocyte mean corpuscular volume (MCV)Ordered By: Azael Jackson on 05-11-2023 MCV (RBC) [Entitic vol] 99.3 fL 80-94 [facility] Hematocrit Auto (Bld) [Volum e fraction]Ordered By: Azael Jackson on 05-11-2023 Hematocrit (Bld) [Volume fraction] 40.2 % 40-54 [facility] MCHC Auto (RBC) [Mass/Vol]Or dered By: Azael Jackson on 05-11-2023 MCHC (RBC) [Mass/Vol] 33.1 g/dL 32-36 [facility] No Panel InformationOrdered By: Azael Jackson on 05-11-2023 32.8 pg 27.0-32.0 [facility] 14.7 % 11.6-14.6 [facility] 53.5 fl 35.1-43.9 [facility] 1.300 % 0.0-0.9 [facility] 0 % 0-5 [facility] 42 mL/min >60 [facility] 51 mL/min >60 [facility] 22.9 RATIO 10-20 [facility] 3.8 g/dL 2.2-4.2 [facility] 99 U/L 45-117 [facility] 23 U/L 16-61 [facility] 23.0 mmol/L 21.0-32.0 [facility] Platelets bldOrdered By: Leonardo killianrupa Jackson on 05-11-2023 Platelets (Bld) [#/Vol] 103 10*3/uL 150-450 [facility] Serum or plasma albumin carol urement (mass/volume)Ordered By: Azael Jackson on 05-11-2023 Albumin [Mass/Vol] 3.1 g/dL 3.2-5.0 [facility] Serum or plasma albumin/glob ulin mass ratioOrdered By: Azael Jackson on 05-11-2023 Albumin/Globulin [Mass ratio] 0.8 {ratio} 0.9-2.4 [facility] Serum or plasma calcium carol urement (mass/volume)Ordered By: Azael Jackson on 05-11-2023 Calcium [Mass/Vol] 8.9 mg/dL 8.5-10.1 [facility] Serum or plasma creatinine m easurement (mass/volume)Ordered By: Azael Jackson on 05-11-2023 Creatinine [Mass/Vol] 1.70 mg/dL 0.70-1.30 [facility] Serum or plasma urea nitroge n measurement (mass/volume)Ordered By: Azael Jackson on 05-11-2023 Urea nitrogen [Mass/Vol] 39 mg/dL 7-18 [facility] Thin prep Papanicolaou smear with manual screeningOrdered By: Azael Jackson on 05-11-2023 Thin prep Papanicolaou smear with manual screening 13 U/L 15-37 [facility] Thin prep Papanicolaou smear with manual screening 7 5-15 [facility] Absolute lymphocyte countOrd ered By: Azael Jackson on 05-03-2023 Lymphocytes Auto (Unsp spec) [#/Vol] 0.65 10*3/uL 0.83-4.51 [facility] Basophil percentageOrdered B y: Azael Jackson on 05-03-2023 Basophil percentage 197 mg/dL 74-106 [facility] Basophil percentage 7.3 g/dL 6.4-8.2 [facility] Basophil percentage 0.60 mg/dL 0.20-1.00 [facility] Basophil percentage 139 mmol/L 136-145 [facility] Basophil percentage 3.6 mmol/L 3.5-5.1 [facility] Basophil percentage 110 mmol/L 98-107 [facility] Basophil percentage < 10.0 umol/L 11-32 [facility] Basophils (Bld) [#/Vol] 9.0 10*3/uL 4.4-11.0 [facility] Basophils (Bld) [#/Vol] 7.4 10*3/uL 2.0-7.7 [facility] Basophils/100 WBC (Bld) 82.8 % 47-70 [facility] Basophils/100 WBC (Bld) 0.8 % 0-5 [facility] Basophils/100 WBC (Bld) 0.4 % 0-1 [facility] Blood erythrocytes count (nu mber/volume)Ordered By: Azael Jackson on 05-03-2023 RBC (Bld) [#/Vol] 4.29 10*6/uL 4.6-6.2 [facility] Blood hemoglobin measurement (mass/volume)Ordered By: Azael Jackson on 05-03-2023 Hemoglobin (Bld) [Mass/Vol] 13.8 g/dL 13.0-16.5 [facility] Blood lymphocytes/100 leukoc ytesOrdered By: Azael Jackson on 05-03-2023 Lymphocytes/100 WBC (Bld) 7.2 % 19-41 [facility] Blood monocytes/100 leukocyt esOrdered By: Azael Jackson on 05-03-2023 Monocytes/100 WBC (Bld) 6.8 % 0-10 [facility] Blood platelet mean volumeOr dered By: Azael Jackson on 05-03-2023 Platelet mean volume (Bld) [Entitic vol] 12.2 fL 6.2-12.0 [facility] Determination of erythrocyte mean corpuscular volume (MCV)Ordered By: Azael Jackson on 05-03-2023 MCV (RBC) [Entitic vol] 98.8 fL 80-94 [facility] Hematocrit Auto (Bld) [Volum e fraction]Ordered By: Azael Jackson on 05-03-2023 Hematocrit (Bld) [Volume fraction] 42.4 % 40-54 [facility] MCHC Auto (RBC) [Mass/Vol]Or dered By: Azael Jackson on 05-03-2023 MCHC (RBC) [Mass/Vol] 32.5 g/dL 32-36 [facility] No Panel InformationOrdered By: Azael Jakcson on 05-03-2023 < 0.01 ng/mL 0.0-4.0 [facility] 32.2 pg 27.0-32.0 [facility] 13.8 % 11.6-14.6 [facility] 49.8 fl 35.1-43.9 [facility] 2.000 % 0.0-0.9 [facility] 0 % 0-5 [facility] 46 mL/min >60 [facility] 56 mL/min >60 [facility] 20.3 RATIO 10-20 [facility] 4.0 g/dL 2.2-4.2 [facility] 109 U/L 45-117 [facility] 28 U/L 16-61 [facility] 23.0 mmol/L 21.0-32.0 [facility] Platelets bldOrdered By: Leonardo Jackson on 05-03-2023 Platelets (Bld) [#/Vol] 144 10*3/uL 150-450 [facility] Serum or plasma albumin acrol urement (mass/volume)Ordered By: Azael Jackson on 05-03-2023 Albumin [Mass/Vol] 3.3 g/dL 3.2-5.0 [facility] Serum or plasma albumin/glob ulin mass ratioOrdered By: Azael Jackson on 05-03-2023 Albumin/Globulin [Mass ratio] 0.8 {ratio} 0.9-2.4 [facility] Serum or plasma calcium carol urement (mass/volume)Ordered By: Azael Jackson on 05-03-2023 Calcium [Mass/Vol] 9.5 mg/dL 8.5-10.1 [facility] Serum or plasma creatinine m easurement (mass/volume)Ordered By: Azael Jackson on 05-03-2023 Creatinine [Mass/Vol] 1.58 mg/dL 0.70-1.30 [facility] Serum or plasma urea nitroge n measurement (mass/volume)Ordered By: Azael Jackson on 05-03-2023 Urea nitrogen [Mass/Vol] 32 mg/dL 7-18 [facility] Thin prep Papanicolaou smear with manual screeningOrdered By: [facility] 05-03-2023 Thin prep Papanicolaou smear with manual screening 14 U/L 15-37 [facility] Thin prep Papanicolaou smear with manual screening 6 5-15 [facility] Absolute lymphocyte countOrd ered By: Martha Ashby on 04-26-2023 Lymphocytes Auto (Unsp spec) [#/Vol] 0.62 10*3/uL 0.83-4.51 [facility] Basophil percentageOrdered B y: Martha Ashby on 04-26-2023 Basophil percentage 95 mg/dL 74-106 [facility] Basophil percentage 6.7 g/dL 6.4-8.2 [facility] Basophil percentage 0.70 mg/dL 0.20-1.00 [facility] Basophil percentage 143 mmol/L 136-145 [facility] Basophil percentage 3.6 mmol/L 3.5-5.1 [facility] Basophil percentage 109 mmol/L 98-107 [facility] Basophil percentage 38.0 umol/L 11-32 [facility] Basophils (Bld) [#/Vol] 6.5 10*3/uL 4.4-11.0 [facility] Basophils (Bld) [#/Vol] 5.1 10*3/uL 2.0-7.7 [facility] Basophils/100 WBC (Bld) 78.6 % 47-70 [facility] Basophils/100 WBC (Bld) 4.9 % 0-5 [facility] Basophils/100 WBC (Bld) 0.5 % 0-1 [facility] Blood erythrocytes count (nu mber/volume)Ordered By: Martha Ashby on 04-26-2023 RBC (Bld) [#/Vol] 3.61 10*6/uL 4.6-6.2 [facility] Blood hemoglobin measurement (mass/volume)Ordered By: Martha Ashby on 04-26-2023 Hemoglobin (Bld) [Mass/Vol] 11.6 g/dL 13.0-16.5 [facility] Blood lymphocytes/100 leukoc ytesOrdered By: Martha Ashby on 04-26-2023 Lymphocytes/100 WBC (Bld) 9.6 % 19-41 [facility] Blood monocytes/100 leukocyt esOrdered By: Martha Ashby on 04-26-2023 Monocytes/100 WBC (Bld) 5.9 % 0-10 [facility] Blood platelet mean volumeOr dered By: Martha Ashby on 04-26-2023 Platelet mean volume (Bld) [Entitic vol] 11.5 fL 6.2-12.0 [facility] Determination of erythrocyte mean corpuscular volume (MCV)Ordered By: Martha Ashby on 04-26-2023 MCV (RBC) [Entitic vol] 96.1 fL 80-94 [facility] Hematocrit Auto (Bld) [Volum e fraction]Ordered By: Martha Ashby on 04-26-2023 Hematocrit (Bld) [Volume fraction] 34.7 % 40-54 [facility] MCHC Auto (RBC) [Mass/Vol]Or dered By: Martha Ashby on 04-26-2023 MCHC (RBC) [Mass/Vol] 33.4 g/dL 32-36 [facility] No Panel InformationOrdered By: Martha Ashby on 04-26-2023 32.1 pg 27.0-32.0 [facility] 13.2 % 11.6-14.6 [facility] 47.0 fl 35.1-43.9 [facility] 0.500 % 0.0-0.9 [facility] 0 % 0-5 [facility] 65 mL/min >60 [facility] 78 mL/min >60 [facility] 20.3 RATIO 10-20 [facility] 3.7 g/dL 2.2-4.2 [facility] 99 U/L 45-117 [facility] 19 U/L 16-61 [facility] 31.0 mmol/L 21.0-32.0 [facility] Platelets bldOrdered By: Sukhjinder Ashby on 04-26-2023 Platelets (Bld) [#/Vol] 140 10*3/uL 150-450 [facility] Serum or plasma albumin carol urement (mass/volume)Ordered By: Martha Ashby on 04-26-2023 Albumin [Mass/Vol] 3.0 g/dL 3.2-5.0 [facility] Serum or plasma albumin/glob ulin mass ratioOrdered By: Martha Ashby on 04-26-2023 Albumin/Globulin [Mass ratio] 0.8 {ratio} 0.9-2.4 [facility] Serum or plasma calcium carol urement (mass/volume)Ordered By: Martha Ashby on 04-26-2023 Calcium [Mass/Vol] 9.0 mg/dL 8.5-10.1 [facility] Serum or plasma creatinine m easurement (mass/volume)Ordered By: Martha Ashby on 04-26-2023 Creatinine [Mass/Vol] 1.18 mg/dL 0.70-1.30 [facility] Serum or plasma urea nitroge n measurement (mass/volume)Ordered By: Martha Ashby on 04-26-2023 Urea nitrogen [Mass/Vol] 24 mg/dL 7-18 [facility] Thin prep Papanicolaou smear with manual screeningOrdered By: Martha Ashby on 04-26-2023 Thin prep Papanicolaou smear with manual screening 23 U/L 15-37 [facility] Thin prep Papanicolaou smear with manual screening 3 5-15 [facility] Absolute lymphocyte countOrd ered By: Dr. Turner on 04-25-2023 Lymphocytes Auto (Unsp spec) [#/Vol] 0.54 10*3/uL 0.83-4.51 [facility] Basophil percentageOrdered B y: Fior Turner on 04-25-2023 Basophil percentage 144 mg/dL 74-106 [facility] Basophil percentage 144 mmol/L 136-145 [facility] Basophil percentage 3.8 mmol/L 3.5-5.1 [facility] Basophil percentage 112 mmol[facility]L 98-107 [facility] Basophils (Bld) [#/Vol] 6.6 10*3/uL 4.4-11.0 [facility] Basophils (Bld) [#/Vol] 5.3 10*3/uL 2.0-7.7 [facility] Basophils/100 WBC (Bld) 80.5 % 47-70 [facility] Basophils/100 WBC (Bld) 3.2 % 0-5 [facility] Basophil percentageOrdered B y: Dr. Turner on 04-25-2023 Basophils/100 WBC (Bld) 0.3 % 0-1 [facility] Chloride [Moles/Vol] 112 mmol/L 98-107 [facility] Eosin[facility]/100 WBC (Bld) 3.2 % 0-5 [facility] Glucose [Mass/Vol] 144 mg/dL 74-106 [facility] Comment on above: Fasting Glucose resu lt greater than or equal to 126 mg/dL suggests DIABETES MELLITUS per A.D.A. criteria. Neutrophils (Bld) [#/Vol] 5.3 10*3/uL 2.0-7.7 [facility] Neutrophils/100 WBC (Bld) 80.5 % 47-70 [facility] Potassium [Moles/Vol] 3.8 mmol/L 3.5-5.1 [facility] Sodium [Moles/Vol] 144 mmol/L 136-145 [facility] WBC (Bld) [#/Vol] 6.6 10*3/uL 4.4-11.0 [facility] Blood erythrocytes count (nu mber/volume)Ordered By: Dr. Turner on 04-25-2023 RBC (Bld) [#/Vol] 3.50 10*6/uL 4.6-6.2 [facility] Blood hemoglobin measurement (mass/volume)Ordered By: Dr. Turner on 04-25-2023 Hemoglobin (Bld) [Mass/Vol] 11.3 g/dL 13.0-16.5 [facility] Blood lymphocytes/100 leukoc ytesOrdered By: Dr. Turner on 04-25-2023 Lymphocytes/100 WBC (Bld) 8.2 % 19-41 [facility] Blood monocytes/100 leukocyt esOrdered By: Dr. Turner on 04-25-2023 Monocytes/100 WBC (Bld) 7.0 % 0-10 [facility] Blood platelet adequacy dete ction by light microscopyOrdered By: Dr. Turner on 04-25-2023 Platelets LM Ql (Bld) SLT DEC ADEQ [facility] Blood platelet mean volumeOr dered By: Dr. Turner on 04-25-2023 Platelet mean volume (Bld) [Entitic vol] 11.4 fL 6.2-12.0 [facility] COVID-19 virus antigen assay Ordered By: Maximo Addison on 04-25-2023 SARS-CoV-2 (COVID-19) Ag IA.rapid Ql (Resp) [facility] COVID-19 virus antigen assay Ordered By: Dr. Addison on 04-25-2023 SARS-CoV-2 (COVID-19) Ag IA.rapid Ql (Resp) [facility] Determination of erythrocyte mean corpuscular volume (MCV)Ordered By: Dr. Turner on 04-25-2023 MCV (RBC) [Entitic vol] 100.6 fL 80-94 [facility] Hematocrit Auto (Bld) [Volum e fraction]Ordered By: Dr. Turner on 04-25-2023 Hematocrit (Bld) [Volume fraction] 35.2 % 40-54 [facility] Laboratory - Chemistry and C hemistry - challengeOrdered By: Dr. Turner on 04-25-2023 CO2 [Moles/Vol] 28.0 mmol/L 21.0-32.0 [facility] Urea nitrogen/Creatinine [Mass ratio] 26.4 mg/mg 10-20 [facility] Laboratory - Hematology and Cell countsOrdered By: Dr. Turner on 04-25-2023 Erythrocyte distribution width (RBC) [Entitic vol] 49.8 fL 35.1-43.9 [facility] Erythrocyte distribution width (RBC) [Ratio] 13.5 % 11.6-14.6 [facility] Immature granulocytes/100 WBC (Bld) 0.800 % 0.0-0.9 [facility] Comment on above: IG% - Immature Granu locytes (promyelocytes, myelocytes and metamyelocytes) > 1% indicates that a LEFT SHIFT is Present. MCH (RBC) [Entitic mass] 32.3 pg 27.0-32.0 [facility] Nucleated RBC/100 WBC (Bld) [Ratio] 0 % 0-5 [facility] MCHC Auto (RBC) [Mass/Vol]Or dered By: Dr. Turner on 04-25-2023 MCHC (RBC) [Mass/Vol] 32.1 g/dL 32-36 [facility] Macrocytes detectionOrdered By: Dr. Turner on 04-25-2023 Macrocytes Ql (Bld) 1+ [facility] No Panel InformationOrdered By: Dr. Turner on 04-25-2023 Estimated Creatinine Clearance Calc 53.28 ml/min [facility] Estimated GFR (MDRD) Amer 71 mL/min >60 [facility] Comment on above: GFR Calc Estimated GFR (MDRD) Non-Af Amer 58 mL/min >60 [facility] Comment on above: Non- GFR Calc No Panel InformationOrdered By: Fior Turner on 04-25-2023 32.3 pg 27.0-32.0 [facility] 13.5 % 11.6-14.6 [facility] 49.8 fl 35.1-43.9 [facility] 0.800 % 0.0-0.9 [facility] 0 % 0-5 [facility] 58 mL/min >60 [facility] 71 mL/min >60 [facility] 53.28 ml/min [facility] 26.4 RATIO 10-20 [facility] 28.0 mmol/L 21.0-32.0 [facility] Platelets bldOrdered By: Dr. Turner on 04-25-2023 Platelets (Bld) [#/Vol] 120 10*3/uL 150-450 [facility] Serum or plasma calcium carol urement (mass/volume)Ordered By: Dr. Turner on 04-25-2023 Calcium [Mass/Vol] 8.9 mg/dL 8.5-10.1 [facility] Serum or plasma creatinine m easurement (mass/volume)Ordered By: Dr. Turner on 04-25-2023 Creatinine [Mass/Vol] 1.29 mg/dL 0.70-1.30 [facility] Comment on above: The validity of the calculated GFR & GFRAA in patients over 70 years has not been determined. Clinical correlation is essential. Serum or plasma urea nitroge n measurement (mass/volume)Ordered By: Dr. Turner on 04-25-2023 Urea nitrogen [Mass/Vol] 34 mg/dL 7-18 [facility] Thin prep Papanicolaou smear with manual screeningOrdered By: Dr. Turner on 04-25-2023 Thin prep Papanicolaou smear with manual screening 4 5-15 [facility] Blood manual differential co mment interpretation (narrative result)Ordered By: Dr. Turner on 04-24-2023 Manual differential comment Timur (Bld) [Interp] SCANNED [facility] Glucose Glucometer (BldC) [M ass/Vol]Ordered By: Dr. Turner on 04-24-2023 Glucose [Mass/Vol] 209 mg/dL 74-106 [facility] Comment on above: MANAGEMENT OF PATIEN T CARE PER NURSING PROTOCOL Absolute lymphocyte countOrd ered By: Dr. Olivia on 04-23-2023 Lymphocytes Auto (Unsp spec) [#/Vol] 0.63 10*3/uL 0.83-4.51 [facility] Basophil percentageOrdered B y: Dr. Olivia on 04-23-2023 Basophil percentage 0 SEEN /hpf 0-5 [facility] Ammonia (P) [Moles/Vol] 13.0 umol/L 11-32 [facility] Basophils/100 WBC (Bld) 0.3 % 0-1 [facility] Bilirubin [Mass/Vol] 0.90 mg/dL 0.20-1.00 [facility] Comment on above: For patients on eltr ombopag therapy, use of Dimension [place] TBIL is not recommended. Chloride [Moles/Vol] 104 mmol/L 98-107 [facility] Eosinophils/100 WBC (Bld) 0.7 % 0-5 [facility] Glucose [Mass/Vol] 146 mg/dL 74-106 [facility] Comment on above: Fasting Glucose resu lt greater than or equal to 126 mg/dL suggests DIABETES MELLITUS per A.D.A. criteria. Neutrophils (Bld) [#/Vol] 7.4 10*3/uL 2.0-7.7 [facility] Neutrophils/100 WBC (Bld) 84.7 % 47-70 [facility] Potassium [Moles/Vol] 4.1 mmol/L 3.5-5.1 [facility] Protein [Mass/Vol] 8.3 g/dL 6.4-8.2 [facility] Sodium [Moles/Vol] 143 mmol/L 136-145 [facility] WBC (Bld) [#/Vol] 8.8 10*3/uL 4.4-11.0 [facility] Basophil percentageOrdered B y: Goldy Olivia on 04-23-2023 Basophil percentage 8.3 g/dL 6.4-8.2 [facility] Basophil percentage 0.90 mg/dL 0.20-1.00 [facility] Basophil percentage 13.0 umol/L 11-32 [facility] Bilirubin Test strip Ql (U)O rdered By: Dr. Olivia on 04-23-2023 Bilirubin Ql (U) Negative Negative [facility] Blood erythrocytes count (nu mber/volume)Ordered By: Dr. Olivia on 04-23-2023 RBC (Bld) [#/Vol] 4.25 10*6/uL 4.6-6.2 [facility] Blood hemoglobin measurement (mass/volume)Ordered By: Dr. Olivia on 04-23-2023 Hemoglobin (Bld) [Mass/Vol] 13.9 g/dL 13.0-16.5 [facility] Blood lymphocytes/100 leukoc ytesOrdered By: Dr. Olivia on 04-23-2023 Lymphocytes/100 WBC (Bld) 7.2 % 19-41 [facility] Blood monocytes/100 leukocyt esOrdered By: Dr. Olivia on 04-23-2023 Monocytes/100 WBC (Bld) 6.6 % 0-10 [facility] Blood platelet mean volumeOr dered By: Dr. Olivia on 04-23-2023 Platelet mean volume (Bld) [Entitic vol] 11.3 fL 6.2-12.0 [facility] Determination of erythrocyte mean corpuscular volume (MCV)Ordered By: Dr. Olivia on 04-23-2023 MCV (RBC) [Entitic vol] 97.4 fL 80-94 [facility] Hematocrit Auto (Bld) [Volum e fraction]Ordered By: Dr. Olivia on 04-23-2023 Hematocrit (Bld) [Volume fraction] 41.4 % 40-54 [facility] INR in Blood by Coagulation assayOrdered By: Dr. Olivia on 04-23-2023 INR Coag (Bld) [Relative time] 1.7 {INR} [facility] Influenza virus A and B and SARS-CoV-2 (COVID-19) Ag panel - Upper respiratory specimOrdered By: Dr. Olivia on 04-23-2023 SARS-CoV-2 (COVID-19) RNA ANUJ+probe Ql (Resp) [facility] Ketones Test strip Ql (U)Ord ered By: Dr. Olivia on 04-23-2023 Ketones Ql (U) Negative Negative [facility] Laboratory - Chemistry and C hemistry - challengeOrdered By: Dr. Olivia on 04-23-2023 ALP [Catalytic activity/Vol] 130 U/L 45-117 [facility] ALT [Catalytic activity/Vol] 22 U/L 16-61 [facility] CO2 [Moles/Vol] 31.0 mmol/L 21.0-32.0 [facility] Globulin (S) [Mass/Vol] 4.6 g/dL 2.2-4.2 [facility] Lipase [Catalytic activity/Vol] 11 U/L 13-75 [facility] Comment on above: Please note:LIPASE r evised reference range effective 23. New Lipase methodology. Expected to produce lower values than the previous assay method. NEW Reference Range: 13 - 75 U/L Urea nitrogen/Creatinine [Mass ratio] 27.9 mg/mg 10-20 [facility] Laboratory - CoagulationOrde red By: Dr. Olivia on 04-23-2023 aPTT Coag (Bld) [Time] 34.0 s 24.1-36.2 [facility] PT Coag (PPP) [Time] 20.3 s 11.7-14.9 [facility] Laboratory - Hematology and Cell countsOrdered By: Dr. Olivia on 04-23-2023 Erythrocyte distribution width (RBC) [Entitic vol] 49.1 fL 35.1-43.9 [facility] Erythrocyte distribution width (RBC) [Ratio] 13.7 % 11.6-14.6 [facility] Immature granulocytes/100 WBC (Bld) 0.500 % 0.0-0.9 [facility] Comment on above: IG% - Immature Granu locytes (promyelocytes, myelocytes and metamyelocytes) > 1% indicates that a LEFT SHIFT is Present. MCH (RBC) [Entitic mass] 32.7 pg 27.0-32.0 [facility] Nucleated RBC/100 WBC (Bld) [Ratio] 0 % 0-5 [facility] MCHC Auto (RBC) [Mass/Vol]Or dered By: Dr. Olivia on 04-23-2023 MCHC (RBC) [Mass/Vol] 33.6 g/dL 32-36 [facility] Mucus LM Ql (Urine sed)Order ed By: Dr. Olivia on 04-23-2023 Mucus Ql (Urine sed) 0 SEEN /hpf [facility] Nitrite Test strip Ql (U)Ord ered By: Dr. Olivia on 04-23-2023 Nitrite Ql (U) Negative Negative [facility] No Panel InformationOrdered By: Dr. Olivia on 04-23-2023 Troponin I High Sensitivity 124 pg/mL 3.0-78.0 [facility] Comment on above: Critical Result(s) C alled at: 13:42:05 04/23/2023 by: Song Trinh RN (ER). Results read back by same. Please Note: New Test Units and Gender Specific Reference Ranges. For more information see Policy Stat Procedure [place] High Sensitivity Troponin (TNIH) and attachments. Estimated Creatinine Clearance Calc 33.69 ml/min [facility] Estimated GFR (MDRD) Amer 42 mL/min >60 [facility] Comment on above: GFR Calc Estimated GFR (MDRD) Non-Af Amer 34 mL/min >60 [facility] Comment on above: Non- GFR Calc No Panel InformationOrdered By: Goldy Olivia on 04-23-2023 124 pg/mL 3.0-78.0 [facility] 20.3 SECONDS 11.7-14.9 [facility] 34.0 Seconds 24.1-36.2 [facility] 4.6 g/dL 2.2-4.2 [facility] 11 U/L 13-75 [facility] 130 U/L 45-117 [facility] 22 U/L 16-61 [facility] Platelets bldOrdered By: Dr. Olivia on 04-23-2023 Platelets (Bld) [#/Vol] 183 10*3/uL 150-450 [facility] Protein Test strip Ql (U)Ord ered By: Dr. Olivia on 04-23-2023 Protein Ql (U) 15 mg/dl Negative [facility] Serum or plasma albumin carol urement (mass/volume)Ordered By: Dr. Olivia on 04-23-2023 Albumin [Mass/Vol] 3.7 g/dL 3.2-5.0 [facility] Serum or plasma albumin/glob ulin mass ratioOrdered By: Dr. Olivia on 04-23-2023 Albumin/Globulin [Mass ratio] 0.8 {ratio} 0.9-2.4 [facility] Serum or plasma calcium carol urement (mass/volume)Ordered By: Dr. Olivia on 04-23-2023 Calcium [Mass/Vol] 9.9 mg/dL 8.5-10.1 [facility] Serum or plasma creatinine m easurement (mass/volume)Ordered By: Dr. Olivia on 04-23-2023 Creatinine [Mass/Vol] 2.04 mg/dL 0.70-1.30 [facility] Comment on above: The validity of the calculated GFR & GFRAA in patients over 70 years has not been determined. Clinical correlation is essential. Serum or plasma urea nitroge n measurement (mass/volume)Ordered By: Dr. Olivia on 04-23-2023 Urea nitrogen [Mass/Vol] 57 mg/dL 7-18 [facility] Squamous epithelial cells de tection in urine sediment by light microscopyOrdered By: Dr. Olivia on 04-23-2023 Epithelial cells.squamous LM Ql (Urine sed) 0-5 SEEN /hpf 0-5 [facility] Thin prep Papanicolaou smear with manual screeningOrdered By: Dr. Olivia on 04-23-2023 Thin prep Papanicolaou smear with manual screening 23 U/L 15-37 [facility] Thin prep Papanicolaou smear with manual screening 8 5-15 [facility] Urine blood detectionOrdered By: Dr. Olivia on 04-23-2023 RBC Ql (U) Negative Negative [facility] RBC Ql (U) 0 SEEN /hpf 0-5 [facility] Urine clarityOrdered By: Dr. Olivia on 04-23-2023 Clarity (U) Clear Clear [facility] Urine color determinationOrd ered By: Dr. Olivia on 04-23-2023 Color (U) Yellow Yellow [facility] Urine glucose detectionOrder ed By: Dr. Olivia on 04-23-2023 Glucose Ql (U) Normal mg/dl Normal [facility] Urine leukocyte esterase det ection by dipstickOrdered By: Dr. Olivia on 04-23-2023 Leukocyte esterase Test strip Ql (U) Negative Negative [facility] Urine pHOrdered By: Dr. Sunny means on 04-23-2023 pH (U) 5.0 [pH] 5.0 - 8.0 [facility] Urine sediment bacteria coun t by microscopy (number/high power field)Ordered By: Dr. Olivia on 04-23-2023 Bacteria LM.HPF (Urine sed) [#/Area] 0 /[HPF] None Seen [facility] Urine specific gravity measu rementOrdered By: Dr. Olivia on 04-23-2023 Specific gravity (U) [Rel density] 1.020 1.002-1.03 0 [facility] Urobilinogen Auto test strip Ql (U)Ordered By: Dr. Olivia on 04-23-2023 Urobilinogen Ql (U) Normal mg/dl Normal [facility] Absolute lymphocyte countOrd ered By: Martha Ashby on 04-19-2023 Lymphocytes Auto (Unsp spec) [#/Vol] 0.49 10*3/uL 0.83-4.51 [facility] Basophil percentageOrdered B y: Martha Ashby on 04-19-2023 Ammonia (P) [Moles/Vol] 27.0 umol/L 11-32 [facility] Basophil percentage 136 mg/dL 74-106 [facility] Basophil percentage 7.3 g/dL 6.4-8.2 [facility] Basophil percentage 0.70 mg/dL 0.20-1.00 [facility] Basophil percentage 153 mg/dL <200 [facility] Basophil percentage 84 mg/dL <199 [facility] Basophil percentage 140 mmol/L 136-145 [facility] Basophil percentage 3.9 mmol/L 3.5-5.1 [facility] Basophil percentage 104 mmol/L 98-107 [facility] Basophil percentage 27.0 umol/L 11-32 [facility] Basophils (Bld) [#/Vol] 6.6 10*3/uL 4.4-11.0 [facility] Basophils (Bld) [#/Vol] 5.4 10*3/uL 2.0-7.7 [facility] Basophils/100 WBC (Bld) 0.5 % 0-1 [facility] Basophils/100 WBC (Bld) 80.8 % 47-70 [facility] Basophils/100 WBC (Bld) 4.2 % 0-5 [facility] Bilirubin [Mass/Vol] 0.70 mg/dL 0.20-1.00 [facility] Comment on above: For patients on eltr ombopag therapy, use of Dimension [place] TBIL is not recommended. Chloride [Moles/Vol] 104 mmol/L 98-107 [facility] Cholesterol [Mass/Vol] 153 mg/dL <200 [facility] Comment on above: <200 mg/dL Desirable 200-240 mg/dL Borderline >240 mg/dL High Risk Eosinophils/100 WBC (Bld) 4.2 % 0-5 [facility] Glucose [Mass/Vol] 136 mg/dL 74-106 [facility] Comment on above: Fasting Glucose resu lt greater than or equal to 126 mg/dL suggests DIABETES MELLITUS per A.D.A. criteria. Neutrophils (Bld) [#/Vol] 5.4 10*3/uL 2.0-7.7 [facility] Neutrophils/100 WBC (Bld) 80.8 % 47-70 [facility] Potassium [Moles/Vol] 3.9 mmol/L 3.5-5.1 [facility] Protein [Mass/Vol] 7.3 g/dL 6.4-8.2 [facility] Sodium [Moles/Vol] 140 mmol/L 136-145 [facility] Triglyceride [Mass/Vol] 84 mg/dL <199 [facility] Comment on above: The drugs N-Acetylcy steine and Metamizole may falsely depress this assay.Serum Triglycerides Reference Interval Normal <150 mg/dL Borderline high 150 - 199 mg/dL High 200 - 499 mg/dL Very High > or = 500 mg/dL WBC (Bld) [#/Vol] 6.6 10*3/uL 4.4-11.0 [facility] Blood erythrocytes count (nu mber/volume)Ordered By: Martha Ashby on 04-19-2023 RBC (Bld) [#/Vol] 3.93 10*6/uL 4.6-6.2 [facility] Blood hemoglobin measurement (mass/volume)Ordered By: Martha Ashby on 04-19-2023 Hemoglobin (Bld) [Mass/Vol] 12.9 g/dL 13.0-16.5 [facility] Blood lymphocytes/100 leukoc ytesOrdered By: Martha Ashby on 04-19-2023 Lymphocytes/100 WBC (Bld) 7.4 % 19-41 [facility] Blood manual differential co mment interpretation (narrative result)Ordered By: Martha Ashby on 04-19-2023 Manual differential comment Timur (Bld) [Interp] SCANNED [facility] Blood monocytes/100 leukocyt esOrdered By: Martha Ashby on 04-19-2023 Monocytes/100 WBC (Bld) 6.2 % 0-10 [facility] Blood platelet mean volumeOr dered By: Martha Ashby on 04-19-2023 Platelet mean volume (Bld) [Entitic vol] 11.4 fL 6.2-12.0 [facility] Determination of erythrocyte mean corpuscular volume (MCV)Ordered By: Martha Ashby on 04-19-2023 MCV (RBC) [Entitic vol] 95.7 fL 80-94 [facility] Hematocrit Auto (Bld) [Volum e fraction]Ordered By: Martha Ashby on 04-19-2023 Hematocrit (Bld) [Volume fraction] 37.6 % 40-54 [facility] Laboratory - Chemistry and C hemistry - challengeOrdered By: Martha Ashby on 04-19-2023 ALP [Catalytic activity/Vol] 120 U/L 45-117 [facility] ALT [Catalytic activity/Vol] 16 U/L 16-61 [facility] CO2 [Moles/Vol] 31.0 mmol/L 21.0-32.0 [facility] Cobalamin (Vitamin B12) [Mass/Vol] 1764 pg/mL 211-911 [facility] Globulin (S) [Mass/Vol] 4.0 g/dL 2.2-4.2 [facility] Urea nitrogen/Creatinine [Mass ratio] 21.3 mg/mg 10-20 [facility] Laboratory - Hematology and Cell countsOrdered By: Martha Ashby on 04-19-2023 Erythrocyte distribution width (RBC) [Entitic vol] 47.4 fL 35.1-43.9 [facility] Erythrocyte distribution width (RBC) [Ratio] 13.5 % 11.6-14.6 [facility] Immature granulocytes/100 WBC (Bld) 0.900 % 0.0-0.9 [facility] Comment on above: IG% - Immature Granu locytes (promyelocytes, myelocytes and metamyelocytes) > 1% indicates that a LEFT SHIFT is Present. MCH (RBC) [Entitic mass] 32.8 pg 27.0-32.0 [facility] Nucleated RBC/100 WBC (Bld) [Ratio] 0 % 0-5 [facility] MCHC Auto (RBC) [Mass/Vol]Or dered By: Martha Ashby on 04-19-2023 MCHC (RBC) [Mass/Vol] 34.3 g/dL 32-36 [facility] No Panel InformationOrdered By: Martha Ashby on 04-19-2023 Estimated GFR (MDRD) Amer 64 mL/min >60 [facility] Comment on above: GFR Calc Estimated GFR (MDRD) Non-Af Amer 53 mL/min >60 [facility] Comment on above: Non- GFR Calc 32.8 pg 27.0-32.0 [facility] 13.5 % 11.6-14.6 [facility] 47.4 fl 35.1-43.9 [facility] 0.900 % 0.0-0.9 [facility] 0 % 0-5 [facility] 53 mL/min >60 [facility] 64 mL/min >60 [facility] 21.3 RATIO 10-20 [facility] 4.0 g/dL 2.2-4.2 [facility] 120 U/L 45-117 [facility] 16 U/L 16-61 [facility] 31.0 mmol/L 21.0-32.0 [facility] 1764 pg/mL 211-911 [facility] Platelets bldOrdered By: Sukhjinder Ashby on 04-19-2023 Platelets (Bld) [#/Vol] 129 10*3/uL 150-450 [facility] Serum or plasma albumin carol urement (mass/volume)Ordered By: Martha Ashby on 04-19-2023 Albumin [Mass/Vol] 3.3 g/dL 3.2-5.0 [facility] Serum or plasma albumin/glob ulin mass ratioOrdered By: Martha Ashby on 04-19-2023 Albumin/Globulin [Mass ratio] 0.8 {ratio} 0.9-2.4 [facility] Serum or plasma calcium carol urement (mass/volume)Ordered By: Martha Ashby on 04-19-2023 Calcium [Mass/Vol] 9.3 mg/dL 8.5-10.1 [facility] Serum or plasma cholesterol in HDL measurement (mass/volume)Ordered By: Martha Ashby on 04-19-2023 Cholesterol in HDL [Mass/Vol] 37 mg/dL >40 [facility] Comment on above: The drugs N-Acetylcy steine and Metamizole may falsely depress this assay. Reference Range HDL <40 mg/dL Low HDL Cholesterol HDL >or= 60 mg/dL High HDL Cholesterol Serum or plasma cholesterol in VLDL measurement (mass/volume)Ordered By: Martha Ashby on 04-19-2023 Cholesterol in VLDL [Mass/Vol] 17 mg/dL 5-40 [facility] Serum or plasma creatinine m easurement (mass/volume)Ordered By: Martha Ashby on 04-19-2023 Creatinine [Mass/Vol] 1.41 mg/dL 0.70-1.30 [facility] Comment on above: The validity of the calculated GFR & GFRAA in patients over 70 years has not been determined. Clinical correlation is essential. Serum or plasma low density lipoprotein (LDL) cholesterol measurement (mass/volume)Ordered By: Martha Ashby on 04-19-2023 Cholesterol in LDL [Mass/Vol] 99 mg/dL 0-130 [facility] Serum or plasma urea nitroge n measurement (mass/volume)Ordered By: Martha Ashby on 04-19-2023 Urea nitrogen [Mass/Vol] 30 mg/dL 7-18 [facility] Thin prep Papanicolaou smear with manual screeningOrdered By: Martha Ashby on 04-19-2023 Thin prep Papanicolaou smear with manual screening 14 U/L 15-37 [facility] Thin prep Papanicolaou smear with manual screening 5 5-15 [facility] Whole blood hemoglobin A1c/t otal hemoglobin ratio (mass fraction)Ordered By: Martha Ashby on 04-19-2023 HbA1c (Bld) [Mass fraction] 7.4 % 3.8-5.6 [facility] Comment on above: Normal < 5.7 % Predi abetic 5.7 - 6.4 % Diabetic >or= 6.5 % Please note range changes. Absolute lymphocyte countOrd ered By: Dr. Turner on 04-16-2023 Lymphocytes Auto (Unsp spec) [#/Vol] 0.36 10*3/uL 0.83-4.51 [facility] Basophil percentageOrdered B y: Fior Turner on 04-16-2023 Basophil percentage 462 mg/dL 74-106 [facility] Basophil percentage 139 mmol/L 136-145 [facility] Basophil percentage 4.1 mmol/L 3.5-5.1 [facility] Basophil percentage 109 mmol/L 98-107 [facility] Basophils (Bld) [#/Vol] 4.7 10*3/uL 4.4-11.0 [facility] Basophils (Bld) [#/Vol] 3.7 10*3/uL 2.0-7.7 [facility] Basophils/100 WBC (Bld) 78.9 % 47-70 [facility] Basophils/100 WBC (Bld) 4.5 % 0-5 [facility] Basophil percentageOrdered B y: Dr. Turner on 04-16-2023 Basophils/100 WBC (Bld) 0.6 % 0-1 [facility] Chloride [Moles/Vol] 109 mmol/L 98-107 [facility] Eosinophils/100 WBC (Bld) 4.5 % 0-5 [facility] Glucose [Mass/Vol] 462 mg/dL 74-106 [facility] Comment on above: Critical Result(s) C alled at: 06:52:33 04/16/2023 by: Jean Pierre Kline. Titi Gomez RN (MS3). Results read back by same.Glucose result greater than or equal to 200 mg/dLsuggests DIABETES MELLITUS per A.D.A. criteria. Neutrophils (Bld) [#/Vol] 3.7 10*3/uL 2.0-7.7 [facility] Neutrophils/100 WBC (Bld) 78.9 % 47-70 [facility] Potassium [Moles/Vol] 4.1 mmol/L 3.5-5.1 [facility] Sodium [Moles/Vol] 139 mmol/L 136-145 [facility] WBC (Bld) [#/Vol] 4.7 10*3/uL 4.4-11.0 [facility] Blood erythrocytes count (nu mber/volume)Ordered By: Dr. Turner on 04-16-2023 RBC (Bld) [#/Vol] 3.31 10*6/uL 4.6-6.2 [facility] Blood hemoglobin measurement (mass/volume)Ordered By: Dr. Turner on 04-16-2023 Hemoglobin (Bld) [Mass/Vol] 11.0 g/dL 13.0-16.5 [facility] Blood lymphocytes/100 leukoc ytesOrdered By: Dr. Turner on 04-16-2023 Lymphocytes/100 WBC (Bld) 7.7 % 19-41 [facility] Blood manual differential co mment interpretation (narrative result)Ordered By: Dr. Turner on 04-16-2023 Manual differential comment Timur (Bld) [Interp] SCANNED [facility] Comment on above: LYMPHOPENIA Blood monocytes/100 leukocyt esOrdered By: Dr. Turner on 04-16-2023 Monocytes/100 WBC (Bld) 7.7 % 0-10 [facility] Blood platelet mean volumeOr dered By: Dr. Turner on 04-16-2023 Platelet mean volume (Bld) [Entitic vol] 11.5 fL 6.2-12.0 [facility] COVID-19 virus antigen assay Ordered By: Fior Turner on 04-16-2023 SARS-CoV-2 (COVID-19) Ag IA.rapid Ql (Resp) [facility] COVID-19 virus antigen assay Ordered By: Dr. Turner on 04-16-2023 SARS-CoV-2 (COVID-19) Ag IA.rapid Ql (Resp) [facility] Determination of erythrocyte mean corpuscular volume (MCV)Ordered By: Dr. Turner on 04-16-2023 MCV (RBC) [Entitic vol] 99.4 fL 80-94 [facility] Glucose Glucometer (dC) [M ass/Vol]Ordered By: Dr. Turner on 04-16-2023 Glucose [Mass/Vol] 302 mg/dL 74-106 [facility] Comment on above: MANAGEMENT OF PATIEN T CARE PER NURSING PROTOCOL Hematocrit Auto (Bld) [Volum e fraction]Ordered By: Dr. Turner on 04-16-2023 Hematocrit (Bld) [Volume fraction] 32.9 % 40-54 [facility] Laboratory - Chemistry and C hemistry - challengeOrdered By: Dr. Turner on 04-16-2023 CO2 [Moles/Vol] 26.0 mmol/L 21.0-32.0 [facility] Urea nitrogen/Creatinine [Mass ratio] 18.2 mg/mg 10-20 [facility] Laboratory - Hematology and Cell countsOrdered By: Dr. Turner on 04-16-2023 Erythrocyte distribution width (RBC) [Entitic vol] 50.6 fL 35.1-43.9 [facility] Erythrocyte distribution width (RBC) [Ratio] 13.9 % 11.6-14.6 [facility] Immature granulocytes/100 WBC (Bld) 0.600 % 0.0-0.9 [facility] Comment on above: IG% - Immature Granu locytes (promyelocytes, myelocytes and metamyelocytes) > 1% indicates that a LEFT SHIFT is Present. MCH (RBC) [Entitic mass] 33.2 pg 27.0-32.0 [facility] Nucleated RBC/100 WBC (Bld) [Ratio] 0 % 0-5 [facility] MCHC Auto (RBC) [Mass/Vol]Or dered By: Dr. Turner on 04-16-2023 MCHC (RBC) [Mass/Vol] 33.4 g/dL 32-36 [facility] Comment on above: Delta: 31.8 on 04/15 No Panel InformationOrdered By: Dr. Turner on 04-16-2023 Estimated Creatinine Clearance Calc 48.07 ml/min [facility] Estimated GFR (MDRD) Amer 63 mL/min >60 [facility] Comment on above: GFR Calc Estimated GFR (MDRD) Non-Af Amer 52 mL/min >60 [facility] Comment on above: Non- GFR Calc No Panel InformationOrdered By: Fior Turner on 04-16-2023 33.2 pg 27.0-32.0 [facility] 13.9 % 11.6-14.6 [facility] 50.6 fl 35.1-43.9 [facility] 0.600 % 0.0-0.9 [facility] 0 % 0-5 [facility] 52 mL/min >60 [facility] 63 mL/min >60 [facility] 48.07 ml/min [facility] 18.2 RATIO 10-20 [facility] 26.0 mmol/L 21.0-32.0 [facility] Platelets bldOrdered By: Dr. Turner on 04-16-2023 Platelets (Bld) [#/Vol] 112 10*3/uL 150-450 [facility] Serum or plasma calcium carol urement (mass/volume)Ordered By: Dr. Turner on 04-16-2023 Calcium [Mass/Vol] 8.6 mg/dL 8.5-10.1 [facility] Serum or plasma creatinine m easurement (mass/volume)Ordered By: Dr. Turner on 04-16-2023 Creatinine [Mass/Vol] 1.43 mg/dL 0.70-1.30 [facility] Comment on above: The validity of the calculated GFR & GFRAA in patients over 70 years has not been determined. Clinical correlation is essential. Serum or plasma urea nitroge n measurement (mass/volume)Ordered By: Dr. Turner on 04-16-2023 Urea nitrogen [Mass/Vol] 26 mg/dL 7-18 [facility] Thin prep Papanicolaou smear with manual screeningOrdered By: Dr. Turner on 04-16-2023 Thin prep Papanicolaou smear with manual screening 4 5-15 [facility] Blood platelet adequacy dete ction by light microscopyOrdered By: Dr. Turner on 04-15-2023 Platelets LM Ql (Bld) ADEQUATE ADEQ [facility] Macrocytes detectionOrdered By: Dr. Turner on 04-15-2023 Macrocytes Ql (Bld) 1+ [facility] Laboratory - Hematology and Cell countsOrdered By: Dr. Orellana on 04-14-2023 Anisocytosis Ql (Bld) 1+ [facility] No Panel InformationOrdered By: Dr. Orellana on 04-14-2023 Thyroid Stimulating Hormone (TSH) 0.87 uIU/mL 0.358-3.74 [facility] No Panel InformationOrdered By: Norris Orellana on 04-14-2023 1+ [facility] 0.87 uIU/mL 0.358-3.74 [facility] Absolute lymphocyte countOrd ered By: Dr. Bliss on 04-13-2023 Lymphocytes Auto (Unsp spec) [#/Vol] 0.51 10*3/uL 0.83-4.51 [facility] Basophil percentageOrdered B y: Dr. Bliss on 04-13-2023 Basophil percentage 0 SEEN /hpf 0-5 [facility] Basophils/100 WBC (Bld) 0.4 % 0-1 [facility] Bilirubin [Mass/Vol] 0.60 mg/dL 0.20-1.00 [facility] Comment on above: For patients on eltr ombopag therapy, use of Dimension [place] TBIL is not recommended. Chloride [Moles/Vol] 103 mmol/L 98-107 [facility] Eosinophils/100 WBC (Bld) 3.3 % 0-5 [facility] Glucose [Mass/Vol] 134 mg/dL 74-106 [facility] Comment on above: Fasting Glucose resu lt greater than or equal to 126 mg/dL suggests DIABETES MELLITUS per A.D.A. criteria. Neutrophils (Bld) [#/Vol] 5.9 10*3/uL 2.0-7.7 [facility] Neutrophils/100 WBC (Bld) 80.2 % 47-70 [facility] Potassium [Moles/Vol] 4.0 mmol/L 3.5-5.1 [facility] Protein [Mass/Vol] 7.7 g/dL 6.4-8.2 [facility] Sodium [Moles/Vol] 138 mmol/L 136-145 [facility] WBC (Bld) [#/Vol] 7.3 10*3/uL 4.4-11.0 [facility] Basophil percentageOrdered B y: Dr. Orellana on 04-13-2023 Basophil percentage 2.8 mg/dL 2.5-4.9 [facility] Basophil percentageOrdered B y: Jo-Ann Bliss on 04-13-2023 Basophil percentage 7.7 g/dL 6.4-8.2 [facility] Basophil percentage 0.60 mg/dL 0.20-1.00 [facility] Bilirubin Test strip Ql (U)O rdered By: Dr. Bliss on 04-13-2023 Bilirubin Ql (U) Negative Negative [facility] Blood erythrocytes count (nu mber/volume)Ordered By: Dr. Bliss on 04-13-2023 RBC (Bld) [#/Vol] 4.04 10*6/uL 4.6-6.2 [facility] Blood hemoglobin measurement (mass/volume)Ordered By: Dr. Bliss on 04-13-2023 Hemoglobin (Bld) [Mass/Vol] 13.0 g/dL 13.0-16.5 [facility] Blood lymphocytes/100 leukoc ytesOrdered By: Dr. Bliss on 04-13-2023 Lymphocytes/100 WBC (Bld) 7.0 % 19-41 [facility] Blood manual differential co mment interpretation (narrative result)Ordered By: Dr. Bliss on 04-13-2023 Manual differential comment Timur (Bld) [Interp] SCANNED [facility] Blood monocytes/100 leukocyt esOrdered By: Dr. Bliss on 04-13-2023 Monocytes/100 WBC (Bld) 8.1 % 0-10 [facility] Blood platelet mean volumeOr dered By: Dr. Bliss on 04-13-2023 Platelet mean volume (Bld) [Entitic vol] 11.5 fL 6.2-12.0 [facility] Determination of erythrocyte mean corpuscular volume (MCV)Ordered By: Dr. Bliss on 04-13-2023 MCV (RBC) [Entitic vol] 96.8 fL 80-94 [facility] Hematocrit Auto (Bld) [Volum e fraction]Ordered By: Dr. Bliss on 04-13-2023 Hematocrit (Bld) [Volume fraction] 39.1 % 40-54 [facility] Ketones Test strip Ql (U)Ord ered By: Dr. Bliss on 04-13-2023 Ketones Ql (U) Negative Negative [facility] Laboratory - Chemistry and C hemistry - challengeOrdered By: Dr. Bliss on 04-13-2023 ALP [Catalytic activity/Vol] 117 U/L 45-117 [facility] ALT [Catalytic activity/Vol] 7 U/L 16-61 [facility] CO2 [Moles/Vol] 29.0 mmol/L 21.0-32.0 [facility] Globulin (S) [Mass/Vol] 4.0 g/dL 2.2-4.2 [facility] Lipase [Catalytic activity/Vol] 13 U/L 13-75 [facility] Comment on above: Please note:LIPASE r evised reference range effective 23. New Lipase methodology. Expected to produce lower values than the previous assay method. NEW Reference Range: 13 - 75 U/L Urea nitrogen/Creatinine [Mass ratio] 21.6 mg/mg 10-20 [facility] Laboratory - Chemistry and C hemistry - challengeOrdered By: Dr. Orellana on 04-13-2023 Magnesium [Mass/Vol] 2.1 mg/dL 1.6-2.6 [facility] Laboratory - Hematology and Cell countsOrdered By: Dr. Bliss on 04-13-2023 Erythrocyte distribution width (RBC) [Entitic vol] 49.0 fL 35.1-43.9 [facility] Erythrocyte distribution width (RBC) [Ratio] 13.8 % 11.6-14.6 [facility] Immature granulocytes/100 WBC (Bld) 1.000 % 0.0-0.9 [facility] Comment on above: IG% - Immature Granu locytes (promyelocytes, myelocytes and metamyelocytes) > 1% indicates that a LEFT SHIFT is Present. MCH (RBC) [Entitic mass] 32.2 pg 27.0-32.0 [facility] Nucleated RBC/100 WBC (Bld) [Ratio] 0 % 0-5 [facility] MCHC Auto (RBC) [Mass/Vol]Or dered By: Dr. Bliss on 04-13-2023 MCHC (RBC) [Mass/Vol] 33.2 g/dL 32-36 [facility] Mucus LM Ql (Urine sed)Order ed By: Dr. Bliss on 04-13-2023 Mucus Ql (Urine sed) 0 SEEN /hpf [facility] Nitrite Test strip Ql (U)Ord ered By: Dr. Bliss on 04-13-2023 Nitrite Ql (U) Negative Negative [facility] No Panel InformationOrdered By: Dr. Bliss on 04-13-2023 Estimated Creatinine Clearance Calc 39.05 ml/min [facility] Estimated GFR (MDRD) Amer 49 mL/min >60 [facility] Comment on above: GFR Calc Estimated GFR (MDRD) Non-Af Amer 41 mL/min >60 [facility] Comment on above: Non- GFR Calc Troponin I High Sensitivity 76 pg/mL 3.0-78.0 [facility] Comment on above: Please Note: New [place] t Units and Gender Specific Reference Ranges. For more information see Policy Stat Procedure [place] High Sensitivity Troponin (TNIH) and attachments. No Panel InformationOrdered By: Jo-Ann Bliss on 04-13-2023 4.0 g/dL 2.2-4.2 [facility] 13 U/L 13-75 [facility] 76 pg/mL 3.0-78.0 [facility] 117 U/L 45-117 [facility] 7 U/L 16-61 [facility] No Panel InformationOrdered By: Norris Orellana on 04-13-2023 2.1 mg/dL 1.6-2.6 [facility] Platelets bldOrdered By: Dr. Bliss on 04-13-2023 Platelets (Bld) [#/Vol] 120 10*3/uL 150-450 [facility] Protein Test strip Ql (U)Ord ered By: Dr. Bliss on 04-13-2023 Protein Ql (U) Negative Negative [facility] Serum or plasma albumin carol urement (mass/volume)Ordered By: Dr. Bliss on 04-13-2023 Albumin [Mass/Vol] 3.7 g/dL 3.2-5.0 [facility] Serum or plasma albumin/glob ulin mass ratioOrdered By: Dr. Bliss on 04-13-2023 Albumin/Globulin [Mass ratio] 0.9 {ratio} 0.9-2.4 [facility] Serum or plasma calcium carol urement (mass/volume)Ordered By: Dr. Bliss on 04-13-2023 Calcium [Mass/Vol] 9.7 mg/dL 8.5-10.1 [facility] Serum or plasma creatinine m easurement (mass/volume)Ordered By: Dr. Bliss on 04-13-2023 Creatinine [Mass/Vol] 1.76 mg/dL 0.70-1.30 [facility] Comment on above: The validity of the calculated GFR & GFRAA in patients over 70 years has not been determined. Clinical correlation is essential. Serum or plasma urea nitroge n measurement (mass/volume)Ordered By: Dr. Bliss on 04-13-2023 Urea nitrogen [Mass/Vol] 38 mg/dL 7-18 [facility] Squamous epithelial cells de tection in urine sediment by light microscopyOrdered By: Dr. Bliss on 04-13-2023 Epithelial cells.squamous LM Ql (Urine sed) 0 SEEN /hpf 0-5 [facility] Thin prep Papanicolaou smear with manual screeningOrdered By: Dr. Bliss on 04-13-2023 Thin prep Papanicolaou smear with manual screening 13 U/L 15-37 [facility] Thin prep Papanicolaou smear with manual screening 6 5-15 [facility] Urine blood detectionOrdered By: Dr. Bliss on 04-13-2023 RBC Ql (U) Negative Negative [facility] RBC Ql (U) 0 SEEN /hpf 0-5 [facility] Urine clarityOrdered By: Dr. Bliss on 04-13-2023 Clarity (U) Clear Clear [facility] Urine color determinationOrd ered By: Dr. Bliss on 04-13-2023 Color (U) Yellow Yellow [facility] Urine glucose detectionOrder ed By: Dr. Bliss on 04-13-2023 Glucose Ql (U) Normal mg/dl Normal [facility] Urine leukocyte esterase det ection by dipstickOrdered By: Dr. Bliss on 04-13-2023 Leukocyte esterase Test strip Ql (U) Negative Negative [facility] Urine pHOrdered By: Dr. Kadie giordano on 04-13-2023 pH (U) 6.5 [pH] 5.0 - 8.0 [facility] Urine sediment bacteria coun t by microscopy (number/high power field)Ordered By: Dr. Bliss on 04-13-2023 Bacteria LM.HPF (Urine sed) [#/Area] 0 /[HPF] None Seen [facility] Urine specific gravity measu rementOrdered By: Dr. Bliss on 04-13-2023 Specific gravity (U) [Rel density] 1.010 1.002-1.03 0 [facility] Urobilinogen Auto test strip Ql (U)Ordered By: Dr. Bliss on 04-13-2023 Urobilinogen Ql (U) Normal mg/dl Normal [facility] Absolute lymphocyte countOrd ered By: Dr. Turner on 04-12-2023 Lymphocytes Auto (Unsp spec) [#/Vol] 0.46 10*3/uL 0.83-4.51 [facility] Basophil percentageOrdered B y: Fior Turner on 04-12-2023 Basophil percentage 143 mg/dL 74-106 [facility] Basophil percentage 140 mmol/L 136-145 [facility] Basophil percentage 3.5 mmol/L 3.5-5.1 [facility] Basophil percentage 106 mmol/L 98-107 [facility] Basophils (Bld) [#/Vol] 5.5 10*3/uL 4.4-11.0 [facility] Basophils (Bld) [#/Vol] 4.3 10*3/uL 2.0-7.7 [facility] Basophils/100 WBC (Bld) 78.1 % 47-70 [facility] Basophils/100 WBC (Bld) 5.1 % 0-5 [facility] Basophil percentageOrdered B y: Dr. Turner on 04-12-2023 Basophils/100 WBC (Bld) 0.4 % 0-1 [facility] Chloride [Moles/Vol] 106 mmol/L 98-[facility] Eosinophils/100 WBC (Bld) 5.1 % 0-5 [facility] Glucose [Mass/Vol] 143 mg/dL 74-106 [facility] Comment on above: Fasting Glucose resu lt greater than or equal to 126 mg/dL suggests DIABETES MELLITUS per A.D.A. criteria. Neutrophils (Bld) [#/Vol] 4.3 10*3/uL 2.0-7.7 [facility] Neutrophils/100 WBC (Bld) 78.1 % 47-70 [facility] Potassium [Moles/Vol] 3.5 mmol/L 3.5-5.1 [facility] Sodium [Moles/Vol] 140 mmol/L 136-145 [facility] WBC (Bld) [#/Vol] 5.5 10*3/uL 4.4-11.0 [facility] Blood erythrocytes count (nu mber/volume)Ordered By: Dr. Turner on 04-12-2023 RBC (Bld) [#/Vol] 3.93 10*6/uL 4.6-6.2 [facility] Blood hemoglobin measurement (mass/volume)Ordered By: Dr. Turner on 04-12-2023 Hemoglobin (Bld) [Mass/Vol] 12.7 g/dL 13.0-16.5 [facility] Blood lymphocytes/100 leukoc ytesOrdered By: Dr. Turner on 04-12-2023 Lymphocytes/100 WBC (Bld) 8.4 % 19-41 [facility] Blood manual differential co mment interpretation (narrative result)Ordered By: Dr. Turner on 04-12-2023 Manual differential comment Timur (Bld) [Interp] COMMENT [facility] Comment on above: LYMPHOPENIA NOTED Blood monocytes/100 leukocyt esOrdered By: [address] Turner on 04-12-2023 Monocytes/100 WBC (Bld) 7.1 % 0-10 [facility] Blood platelet mean volumeOr dered By: Dr. Turner on 04-12-2023 Platelet mean volume (Bld) [Entitic vol] 11.0 fL 6.2-12.0 [facility] Determination of erythrocyte mean corpuscular volume (MCV)Ordered By: Dr. Turner on 04-12-2023 MCV (RBC) [Entitic vol] 97.2 fL 80-94 [facility] Glucose Glucometer (BldC) [M ass/Vol]Ordered By: Dr. Turner on 04-12-2023 Glucose [Mass/Vol] 314 mg/dL 74-106 [facility] Comment on above: MANAGEMENT OF PATIEN T CARE PER NURSING PROTOCOL Hematocrit Auto (Bld) [Volum e fraction]Ordered By: Dr. Turner on 04-12-2023 Hematocrit (Bld) [Volume fraction] 38.2 % 40-54 [facility] Laboratory - Chemistry and C hemistry - challengeOrdered By: Dr. Turner on 04-12-2023 CO2 [Moles/Vol] 28.0 mmol/L 21.0-32.0 [facility] Urea nitrogen/Creatinine [Mass ratio] 20.8 mg/mg 10-20 [facility] Laboratory - Hematology and Cell countsOrdered By: Dr. Turner on 04-12-2023 Erythrocyte distribution width (RBC) [Entitic vol] 48.8 fL 35.1-43.9 [facility] Erythrocyte distribution width (RBC) [Ratio] 13.7 % 11.6-14.6 [facility] Immature granulocytes/100 WBC (Bld) 0.900 % 0.0-0.9 [facility] Comment on above: IG% - Immature Granu locytes (promyelocytes, myelocytes and metamyelocytes) > 1% indicates that a LEFT SHIFT is Present. MCH (RBC) [Entitic mass] 32.3 pg 27.0-32.0 [facility] Nucleated RBC/100 [facility] (Bld) [[facility]] 0 [facility] [Mass/Vol]Or dered By: Dr. Turner on 04-12-2023 MCHC (RBC) [Mass/Vol] 33.2 g/dL 32-36 [facility] No Panel InformationOrdered By: Dr. Turner on 04-12-2023 Estimated Creatinine Clearance Calc 54.99 ml/min [facility] Estimated GFR (MDRD) Amer 73 mL/min >60 [facility] Comment on above: GFR Calc Estimated GFR (MDRD) Non-Af Amer 61 mL/min >60 [facility] Comment on above: Non- GFR Calc No Panel InformationOrdered By: Fior Turner on 04-12-2023 32.3 pg 27.0-32.0 [facility] 13.7 % 11.6-14.6 [facility] 48.8 fl 35.1-43.9 [facility] 0.900 % 0.0-0.9 [facility] 0 % 0-5 [facility] 61 mL/min >60 [facility] 73 mL/min >60 [facility] 54.99 ml/min [facility] 20.8 RATIO 10-20 [facility] 28.0 mmol/L 21.0-32.0 [facility] Platelets bldOrdered By: Dr. Turner on 04-12-2023 Platelets (Bld) [#/Vol] 118 10*3/uL 150-450 [facility] Serum or plasma calcium carol urement (mass/volume)Ordered By: Dr. Turner on 04-12-2023 Calcium [Mass/Vol] 9.1 mg/dL 8.5-10.1 [facility] Serum or plasma creatinine m easurement (mass/volume)Ordered By: Dr. Turner on 04-12-2023 Creatinine [Mass/Vol] 1.25 mg/dL 0.70-1.30 [facility] Comment on above: The validity of the calculated GFR & GFRAA in patients over 70 years has not been determined. Clinical correlation is essential. Serum or plasma urea nitroge n measurement (mass/volume)Ordered By: Dr. Turner on 04-12-2023 Urea nitrogen [Mass/Vol] 26 mg/dL 7-18 [facility] Thin prep Papanicolaou smear with manual screeningOrdered By: Dr. Turner on 04-12-2023 Thin prep Papanicolaou smear with manual screening 6 5-15 [facility] Basophil percentageOrdered B y: Dr. Jacobs on 04-11-2023 Basophil percentage 3.1 mg/dL 2.5-4.9 [facility] Laboratory - Chemistry and C hemistry - challengeOrdered By: Dr. Jacobs on 04-11-2023 Magnesium [Mass/Vol] 1.9 mg/dL 1.6-2.6 [facility] No Panel InformationOrdered By: Leonie Jacobs on 04-11-2023 1.9 mg/dL 1.6-2.6 [facility] Absolute lymphocyte countOrd ered By: Dr. Badillo on 04-10-2023 Lymphocytes Auto (Unsp spec) [#/Vol] 0.50 10*3/uL 0.83-4.51 [facility] Basophil percentageOrdered B y: Dr. Badillo on 04-10-2023 Basophil percentage 0 SEEN /hpf 0-5 [facility] Basophils/100 WBC (Bld) 0.4 % 0-1 [facility] Bilirubin [Mass/Vol] 0.90 mg/dL 0.20-1.00 [facility] Comment on above: For patients on eltr ombopag therapy, use of Dimension [place] TBIL is not recommended. Chloride [Moles/Vol] 104 mmol/L 98-107 [facility] Eosinophils/100 WBC (Bld) 1.4 % 0-5 [facility] Glucose [Mass/Vol] 216 mg/dL 74-106 [facility] Comment on above: Glucose result great er than or equal to 200 mg/dLsuggests DIABETES MELLITUS per A.D.A. criteria. Neutrophils (Bld) [#/Vol] 8.0 10*3/uL 2.0-7.7 [facility] Neutrophils/100 WBC (Bld) 85.5 % 47-70 [facility] Potassium [Moles/Vol] 4.0 mmol/L 3.5-5.1 [facility] Protein [Mass/Vol] 8.0 g/dL 6.4-8.2 [facility] Sodium [Moles/Vol] 139 mmol/L 136-145 [facility] WBC (Bld) [#/Vol] 9.3 10*3/uL 4.4-11.0 [facility] Basophil percentageOrdered B y: Victorino Badillo on 04-10-2023 Basophil percentage 8.0 g/dL 6.4-8.2 [facility] Basophil percentage 0.90 mg/dL 0.20-1.00 [facility] Bilirubin Test strip Ql (U)O rdered By: Dr. Badillo on 04-10-2023 Bilirubin Ql (U) Negative Negative [facility] Blood erythrocytes count (nu mber/volume)Ordered By: Dr. Badillo on 04-10-2023 RBC (Bld) [#/Vol] 4.14 10*6/uL 4.6-6.2 [facility] Blood hemoglobin measurement (mass/volume)Ordered By: Dr. Badillo on 04-10-2023 Hemoglobin (Bld) [Mass/Vol] 13.3 g/dL 13.0-16.5 [facility] Blood lymphocytes/100 leukoc ytesOrdered By: Dr. Badillo on 04-10-2023 Lymphocytes/100 WBC (Bld) 5.4 % 19-41 [facility] Blood manual differential co mment interpretation (narrative result)Ordered By: Dr. Badillo on 04-10-2023 Manual differential comment Timur (Bld) [Interp] COMMENT [facility] Comment on above: LYMPHOPENIA NOTED Blood monocytes/100 leukocyt esOrdered By: Dr. Badillo on 04-10-2023 Monocytes/100 WBC (Bld) 6.7 % 0-10 [facility] Blood platelet mean volumeOr dered By: Dr. Badillo on 04-10-2023 Platelet mean volume (Bld) [Entitic vol] 11.2 fL 6.2-12.0 [facility] Determination of erythrocyte mean corpuscular volume (MCV)Ordered By: Dr. Badillo on 04-10-2023 MCV (RBC) [Entitic vol] 96.6 fL 80-94 [facility] Hematocrit Auto (Bld) [Volum e fraction]Ordered By: Dr. Badillo on 04-10-2023 Hematocrit (Bld) [Volume fraction] 40.0 % 40-54 [facility] Ketones Test strip Ql (U)Ord ered By: Dr. Badillo on 04-10-2023 Ketones Ql (U) Negative Negative [facility] Laboratory - Chemistry and C hemistry - challengeOrdered By: Dr. Badillo on 04-10-2023 ALP [Catalytic activity/Vol] 133 U/L 45-117 [facility] ALT [Catalytic activity/Vol] 12 U/L 16-61 [facility] CO2 [Moles/Vol] 28.0 mmol/L 21.0-32.0 [facility] Globulin (S) [Mass/Vol] 4.0 g/dL 2.2-4.2 [facility] Urea nitrogen/Creatinine [Mass ratio] 20.9 mg/mg 10-20 [facility] Laboratory - Hematology and Cell countsOrdered By: Dr. Badillo on 04-10-2023 Erythrocyte distribution width (RBC) [Entitic vol] 48.4 fL 35.1-43.9 [facility] Erythrocyte distribution width (RBC) [Ratio] 13.8 % 11.6-14.6 [facility] Immature granulocytes/100 WBC (Bld) 0.600 % 0.0-0.9 [facility] Comment on above: IG% - Immature Granu locytes (promyelocytes, myelocytes and metamyelocytes) > 1% indicates that a LEFT SHIFT is Present. MCH (RBC) [Entitic mass] 32.1 pg 27.0-32.0 [facility] Nucleated RBC/100 WBC (Bld) [Ratio] 0 % 0-5 [facility] MCHC Auto (RBC) [Mass/Vol]Or dered By: Dr. Badillo on 04-10-2023 MCHC (RBC) [Mass/Vol] 33.3 g/dL 32-36 [facility] Mucus LM Ql (Urine sed)Order ed By: Dr. Badillo on 04-10-2023 Mucus Ql (Urine sed) 0 SEEN /hpf [facility] Nitrite Test strip Ql (U)Ord ered By: Dr. Badillo on 04-10-2023 Nitrite Ql (U) Negative Negative [facility] No Panel InformationOrdered By: Dr. Badillo on 04-10-2023 Estimated Creatinine Clearance Calc 49.45 ml/min [facility] Estimated GFR (MDRD) Amer 65 mL/min >60 [facility] Comment on above: GFR Calc Estimated GFR (MDRD) Non-Af Amer 54 mL/min >60 [facility] Comment on above: Non- GFR Calc No Panel InformationOrdered By: Victorino Badillo on 04-10-2023 4.0 g/dL 2.2-4.2 [facility] 133 U/L 45-117 [facility] 12 U/L 16-61 [facility] Platelets bldOrdered By: Dr. Badillo on 04-10-2023 Platelets (Bld) [#/Vol] 155 10*3/uL 150-450 [facility] Protein Test strip Ql (U)Ord ered By: Dr. Badillo on 04-10-2023 Protein Ql (U) Negative Negative [facility] Serum or plasma albumin carol urement (mass/volume)Ordered By: Dr. Badillo on 04-10-2023 Albumin [Mass/Vol] 4.0 g/dL 3.2-5.0 [facility] Serum or plasma albumin/glob ulin mass ratioOrdered By: Dr. Badillo on 04-10-2023 Albumin/Globulin [Mass ratio] 1.0 {ratio} 0.9-2.4 [facility] Serum or plasma calcium carol urement (mass/volume)Ordered By: Dr. Badillo on 04-10-2023 Calcium [Mass/Vol] 9.5 mg/dL 8.5-10.1 [facility] Serum or plasma creatinine m easurement (mass/volume)Ordered By: Dr. Badillo on 04-10-2023 Creatinine [Mass/Vol] 1.39 mg/dL 0.70-1.30 [facility] Comment on above: The validity of the calculated GFR & GFRAA in patients over 70 years has not been determined. Clinical correlation is essential. Serum or plasma urea nitroge n measurement (mass/volume)Ordered By: Dr. Badillo on 04-10-2023 Urea nitrogen [Mass/Vol] 29 mg/dL 7-18 [facility] Squamous epithelial cells de tection in urine sediment by light microscopyOrdered By: Dr. Badillo on 04-10-2023 Epithelial cells.squamous LM Ql (Urine sed) 0 SEEN /hpf 0-5 [facility] Thin prep Papanicolaou smear with manual screeningOrdered By: Dr. Badillo on 04-10-2023 Thin prep Papanicolaou smear with manual screening 16 U/L 15-37 [facility] Thin prep Papanicolaou smear with manual screening 7 5-15 [facility] Urine blood detectionOrdered By: Dr. Badillo on 04-10-2023 RBC Ql (U) Negative Negative [facility] RBC Ql (U) 0 SEEN /hpf 0-5 [facility] Urine clarityOrdered By: Dr. Badillo on 04-10-2023 Clarity (U) Clear Clear [facility] Urine color determinationOrd ered By: Dr. Badillo on 04-10-2023 Color (U) Yellow Yellow [facility] Urine glucose detectionOrder ed By: Dr. Badillo on 04-10-2023 Glucose Ql (U) Normal mg/dl Normal [facility] Urine leukocyte esterase det ection by dipstickOrdered By: Dr. Badillo on 04-10-2023 Leukocyte esterase Test strip Ql (U) Negative Negative [facility] Urine pHOrdered By: Dr. Zain steiner on 04-10-2023 pH (U) 6.0 [pH] 5.0 - 8.0 [facility] Urine sediment bacteria coun t by microscopy (number/high power field)Ordered By: Dr. Badillo on 04-10-2023 Bacteria LM.HPF (Urine sed) [#/Area] 0 /[HPF] None Seen [facility] Urine specific gravity measu rementOrdered By: Dr. Badillo on 04-10-2023 Specific gravity (U) [Rel density] 1.015 1.002-1.03 0 [facility] Urobilinogen Auto test strip Ql (U)Ordered By: Dr. Badillo on 04-10-2023 Urobilinogen Ql (U) Normal mg/dl Normal [facility] HEMOGLOBIN A1C (POC)on 03-23 HbA1c (Bld) [Mass fraction] 8.1 % Abnormal 4.2 - 5.6 % [facility] No Panel Informationon 03-09 [facility] No Panel InformationOrdered By: KEYSHAWN Cartagena on 01-27-2023 Prostate Specific Antigen Total < 0.01 ng/mL 0.0-4.0 [facility] Comment on above: This test was perfor med using the TPSA assay method [facility]. Values obtained with differentassay methods cannot be used interchangably.When changing PSA assays in the course of monitoring apatient, additional sequential testing should be carriedout to confirm baseline values. < 0.01 ng/mL 0.0-4.0 [facility] Laboratory - Chemistry and C hemistry - challengeOrdered By: Dr. Horton on 01-06-2023 Free T4 [Mass/Vol] 1.01 ng/dL 0.76-1.46 [facility] No Panel InformationOrdered By: Dr. Horton on 01-06-2023 Free Triiodothyronine (T3) pg/dL 2.5 pg/mL 2.18-3.98 [facility] Thyroid Stimulating Hormone (TSH) 1.52 uIU/mL 0.358-3.74 [facility] No Panel InformationOrdered By: KEYSHAWN Cartagena on 10-21-2022 Prostate Specific Antigen Total < 0.01 ng/mL 0.0-4.0 [facility] Comment on above: This test was perfor med using the TPSA assay method [facility]. Values obtained with differentassay methods cannot be used interchangably.When changing PSA assays in the course of monitoring apatient, additional sequential testing should be carriedout to confirm baseline values. CBC panel Auto (Bld)on 09-02 Erythrocyte distribution width (RBC) [Ratio] 13.2 % 11.5 - 15.0 % [facility] Hematocrit (Bld) [Volume fraction] 40.5 % 39.0 - 51.0 % [facility] Hemoglobin (Bld) [Mass/Vol] 13.0 g/dL 13.0 - 17.0 g/dL [facility] MCH (RBC) [Entitic mass] 32.3 pg 26. 0 - 34.0 pg [facility] MCHC (RBC) [Mass/Vol] 32.1 g/dL 30.5 - 36.0 g/dL [facility] MCV (RBC) [Entitic vol] 100.7 fL High 80.0 - 100.0 fL [facility] Nucleated RBC (Bld) [#/Vol] <0.01 k/uL [facility] Platelet mean volume (Bld) [Entitic vol] 11.0 fL 9.0 - 12.7 fL [facility] Platelets (Bld) [#/Vol] 122 10*3/uL Low 150 - 400 k/uL [facility] RBC (Bld) [#/Vol] 4.02 10*6/uL Low 4.20 - 6.00 m/uL [facility] WBC (Bld) [#/Vol] 6.08 10*3/uL 3.70 - 11.00 k/uL [facility] Comprehensive metabolic 2000 panelon 09-02-2022 Albumin [Mass/Vol] 4.3 g/dL 3.9 - 4.9 g/dL [facility] ALP [Catalytic activity/Vol] 137 U/L High 38 - 113 U/L [facility] ALT [Catalytic activity/Vol] 14 U/L 10 - 54 U/L [facility] Anion gap [Moles/Vol] 7 mmol/L Low 9 - 18 mmol/L [facility] AST [Catalytic activity/Vol] 20 U/L 14 - 40 U/L [facility] Bilirubin [Mass/Vol] 0.5 mg/dL 0.2 - 1 .3 mg/dL [facility] Calcium [Mass/Vol] 10.1 mg/dL 8.5 - 10. 2 mg/dL [facility] Chloride [Moles/Vol] 102 mmol/L 97 - 10 5 mmol/L [facility] CO2 [Moles/Vol] 29 mmol/L 22 - 30 mmol/L [facility] Creatinine [Mass/Vol] 1.25 mg/dL High 0.73 - 1.22 mg/dL [facility] Estimated Glomerular Filtration Rate 62 mL/min/1.73m >=60 mL/min/1.7 3m [facility] Glucose [Mass/Vol] 171 mg/dL High 74 - 99 mg/dL [facility] Potassium [Moles/Vol] 5.3 mmol/L High 3.7 - 5.1 mmol/L [facility] Protein [Mass/Vol] 7.5 g/dL 6.3 - 8.0 g/dL [facility] Sodium [Moles/Vol] 138 mmol/L 136 - 144 mmol/L [facility] Urea nitrogen [Mass/Vol] 28 mg/dL High 9 - 24 mg/dL [facility] No Panel Informationon 09-02 [facility] PT panel Coag (PPP)on 2021 INR Coag (PPP) [Relative time] 1.2 {INR} 0.9 - 1.3 [facility] PT Coag (PPP) [Time] 12.7 s 9.7 - 1 3.0 sec [facility] US ABD SPLEEN - NBon 022 [facility] Albumin Elph [Mass/Vol]Order ed By: Dr. Horton on 08-09-2022 Albumin [Mass/Vol] 3.8 g/dL 2.9-4.4 [facility] Basophil percentageOrdered B y: Dr. Horton on 08-09-2022 Basophil percentage Comment . [facility] Comment on above: No monoclonality det ected.Performed at: [facility] Director: Jay Grijalva PhD, Phone: [phone] Interpretation of serum or p lasma protein pattern by immunofixation (narrative resultOrdered By: Dr. Horton on 08-09-2022 Protein Fractions Immunofixation Timur [Interp] See comment [facility] Comment on above: Result: Not Observed No Panel InformationOrdered By: Dr. Horton on 08-09-2022 Addendum Document Comment . [facility] Comment on above: Protein electrophore sis scan will follow via computer,mail, or quill buncher and sorter delivery. Serum [id number] measu rement by electrophoresisOrdered By: Dr. Horton on 08-09-2022 Alpha 1 globulin Elph [Mass/Vol] 0.3 g/dL 0.0-0.4 [facility] Alpha 1 globulin Elph [Mass/Vol] 0.7 g/dL 0.4-1.0 [facility] Serum globulin measurement ( mass/volume)Ordered By: Dr. Horton on 08-09-2022 Globulin (S) [Mass/Vol] 3.7 g/dL 2.2-3.9 [facility] Serum or plasma IgA measurem ent (mass/volume)Ordered By: Dr. Horton on 08-09-2022 IgA [Mass/Vol] 152 mg/dL 61-437 [facility] Serum or plasma IgG measurem ent (mass/volume)Ordered By: Dr. Horton on 08-09-2022 IgG [Mass/Vol] 1578 mg/dL 603-1613 [facility] Serum or plasma IgM measurem ent (mass/volume)Ordered By: Dr. Horton on 08-09-2022 IgM [Mass/Vol] 37 mg/dL 20-172 [facility] Serum or plasma beta globuli n measurement by electrophoresis (mass/volume)Ordered By: Dr. Horton on 08-09-2022 Beta globulin Elph [Mass/Vol] 1.2 g/dL 0.7-1.3 [facility] Serum or plasma gamma globul in measurement by electrophoresis (mass/volume)Ordered By: Dr. Horton on 08-09-2022 Gamma globulin Elph [Mass/Vol] 1.5 g/dL 0.4-1.8 [facility] Serum or plasma immunoelectr ophoresis interpretation (nominal result)Ordered By: Dr. Horton on 08-09-2022 Interpretation IEP [Interp] Comment . [facility] Comment on above: No monoclonality det ected. Thin prep Papanicolaou smear with manual screeningOrdered By: Dr. Horton on 08-09-2022 Thin prep Papanicolaou smear with manual screening 1.1 0.7-1.7 [facility] Total protein bloodOrdered B y: Dr. Horton on 08-09-2022 Protein [Mass/Vol] 7.5 g/dL 6.0-8.5 [facility] XR HIP RIGHT WITH PELVIS 2-3 VIEWS (ROUTINE)on 06-15-2022 XR HIP RIGHT WITH PELVIS 2-3 VIEWS (ROUTINE) EXAMINATION: XR HIP RIGHT WITH PELVIS 2-3 VIEWS (ROUTINE) HISTORY: pain Dx: Hip fracture requiring operative repair, right, closed, initial encounter ([facility]) S72.001A (ICD-10-CM); Status post hip hemiarthroplasty Z96.649 [...] Prominent right femoral vascular calcifications are apparent. RWA/[facility] Workstation ID: [id number] Dictated by: KODI LANZA on TueJun 16, 2022 10:35:10 AM EDT Transcribed by: SIDDHARTH ALEXANDRE on TueJun 16, 2022 11:01:51 AM EDT Finalized by: KODI LANZA on TueJun 16, 2022 11:17:07 AM EDT Normal [facility] Comment on above: Order Comment: Injur y/Trauma or Illness?:Injury/Trauma How long have you had these symptoms (acute/chronic)?:Acute Reason for exam?:POST OP RIGHT HIP SX 02/13/22 History of cancer?: Surgeries, chemotherapy, or radiation?: Type of Exam?:Subsequent/Follow-up Mechanism of injury?:fall Absolute lymphocyte counton 06-07-2022 Lymphocytes Auto (Unsp spec) [#/Vol] 0.44 10*3/uL 0.83-4.51 [facility] Work Phone: Basophil percentageon 2021 Basophil percentage 0-5 SEEN /hpf 0-5 [facility] Work Phone: Ammonia (P) [Moles/Vol] 14.0 umol/L 11-32 [facility] Work Phone: [phone] Basophils/100 WBC (Bld) 0.4 % 0-1 [facility] Work Phone: Bilirubin [Mass/Vol] 0.80 mg/dL 0.20-1.00 [facility] Work Phone: Comment on above: For patients on eltr ombopag therapy, use of Dimension [place] TBIL is not recommended. Chloride [Moles/Vol] 100 mmol/L 98-107 [facility] Work Phone: Eosinophils/100 WBC (Bld) 0.7 % 0-5 [facility] Work Phone: [phone] Glucose [Mass/Vol] 376 mg/dL 74-106 [facility] Work Phone: [phone] Comment on above: Glucose result great er than or equal to 200 mg/dLsuggests DIABETES MELLITUS per A.D.A. criteria. Neutrophils (Bld) [#/Vol] 6.6 10*3/uL 2.0-7.7 [facility] Work Phone: [phone] Neutrophils/100 WBC (Bld) 86.1 % 47-70 [facility] Work Phone: [phone] Potassium [Moles/Vol] 4.5 mmol/L 3.5-5.1 [facility] Work Phone: [phone] Comment on above: Moderate Hemolysis, Result may be falsely increased. Protein [Mass/Vol] 8.3 g/dL 6.4-8.2 [facility] Work Phone: Sodium [Moles/Vol] 136 mmol/L 136-145 [facility] Work Phone: [phone] WBC (Bld) [#/Vol] 7.6 10*3/uL 4.4-11.0 [facility] Work Phone: [phone] Bilirubin Test strip Ql (U)o n 06-07-2022 Bilirubin Ql (U) Negative Negative [facility] Work Phone: Blood erythrocytes count (nu mber/volume)on 06-07-2022 RBC (Bld) [#/Vol] 4.26 10*6/uL 4.6-6.2 [facility] Work Phone: [phone] Blood hemoglobin measurement (mass/volume)on 06-07-2022 Hemoglobin (Bld) [Mass/Vol] 13.1 g/dL 13.0-16.5 [facility] Work Phone: Blood lymphocytes/100 leukoc yteson 06-07-2022 Lymphocytes/100 WBC (Bld) 5.8 % 19-41 [facility] Work Phone: Blood monocytes/100 leukocyt eson 06-07-2022 Monocytes/100 WBC (Bld) 6.0 % 0-10 [facility] Work Phone: Blood platelet adequacy dete ction by light microscopyon 06-07-2022 Platelets LM Ql (Bld) SLT [facility] Work Phone: Blood platelet mean volumeon 06-07-2022 Platelet mean volume (Bld) [Entitic vol] 12.1 fL 6.2-12.0 [facility] Work Phone: [phone] Determination of erythrocyte mean corpuscular volume (MCV)on 06-07-2022 MCV (RBC) [Entitic vol] 93.4 fL 80-94 [facility] Work Phone: [phone] Direct bilirubinon Bilirubin.direct [Mass/Vol] 0.19 mg/dL 0.00-0.30 [facility] Work Phone: Hematocrit Auto (Bld) [Volum e fraction]on 06-07-2022 Hematocrit (Bld) [Volume fraction] 39.8 % 40-54 [facility] Work Phone: [phone] Ketones Test strip Ql (U)on 06-07-2022 Ketones Ql (U) Negative Negative [facility] Work Phone: [phone] Laboratory - Chemistry and C hemistry - challengeon 06-07-2022 ALP [Catalytic activity/Vol] 154 U/L 45-117 [facility] Work Phone: ALT [Catalytic activity/Vol] 23 U/L 16-61 [facility] Work Phone: CO2 [Moles/Vol] 27.0 mmol/L 21.0-32.0 [facility] Work Phone: Globulin (S) [Mass/Vol] 4.7 g/dL 2.2-4.2 [facility] Work Phone: [phone] Natriuretic peptide B (Bld) [Mass/Vol] 244.9 pg/mL 0-100 [facility] Work Phone: Urea nitrogen/Creatinine [Mass ratio] 19.9 mg/mg 10-20 [facility] Work Phone: Laboratory - Hematology and Cell countson 06-07-2022 Erythrocyte distribution width (RBC) [Entitic vol] 50.3 fL 35.1-43.9 [facility] Work Phone: Erythrocyte distribution width (RBC) [Ratio] 14.6 % 11.6-14.6 [facility] Work Phone: Immature granulocytes/100 WBC (Bld) 1.000 % 0.0-0.9 [facility] Work Phone: Comment on above: IG% - Immature Granu locytes (promyelocytes, myelocytes and metamyelocytes) > 1% indicates that a LEFT SHIFT is Present. MCH (RBC) [Entitic mass] 30.8 pg 27.0-32.0 [facility] Work Phone: Nucleated RBC/100 WBC (Bld) [Ratio] 0 % 0-5 [facility] Work Phone: MCHC Auto (RBC) [Mass/Vol]on 06-07-2022 MCHC (RBC) [Mass/Vol] 32.9 g/dL 32-36 [facility] Work Phone: Mucus LM Ql (Urine sed)on Mucus Ql (Urine sed) 0 SEEN /hpf [facility] Work Phone: Nitrite Test strip Ql (U)on 06-07-2022 Nitrite Ql (U) Negative Negative [facility] Work Phone: No Panel Informationon 06-07 Estimated Creatinine Clearance Calc 40.77 ml/min [facility] Work Phone: Estimated GFR (MDRD) Amer 51 mL/min >60 [facility] Work Phone: Comment on above: GFR Calc Estimated GFR (MDRD) Non-Af Amer 42 mL/min >60 [facility] Work Phone: Comment on above: Non- GFR Calc Troponin I High Sensitivity 90 pg/mL 3.0-78.0 [facility] Work Phone: Comment on above: Please Note: [place] t Units and Gender Specific Reference Ranges. For more information see Policy Stat Procedure [place] High Sensitivity Troponin (TNIH) and attachments. Platelets bldon 06-07-2022 Platelets (Bld) [#/Vol] See comment 150-450 [facility] Work Phone: Comment on above: Please note: [...] 06-07-2022 Protein Ql (U) 15 mg/dl Negative [facility] Work Phone: Serum or plasma albumin carol urement (mass/volume)on 06-07-2022 Albumin [Mass/Vol] 3.6 g/dL 3.2-5.0 [facility] Work Phone: Serum or plasma calcium carol urement (mass/volume)on 06-07-2022 Calcium [Mass/Vol] 10.4 mg/dL 8.5-10.1 [facility] Work Phone: Serum or plasma creatinine m easurement (mass/volume)on 06-07-2022 Creatinine [Mass/Vol] 1.71 mg/dL 0.70-1.30 [facility] Work Phone: Comment on above: The validity of the calculated GFR & GFRAA in patients over 70 years has not been determined. Clinical correlation is essential. Serum or plasma urea nitroge n measurement (mass/volume)on 06-07-2022 Urea nitrogen [Mass/Vol] 34 mg/dL 7-18 [facility] Work Phone: Squamous epithelial cells de tection in urine sediment by light microscopyon 06-07-2022 Epithelial cells.squamous LM Ql (Urine sed) 0-5 SEEN /hpf 0-5 [facility] Work Phone: Thin prep Papanicolaou smear with manual screeningon 06-07-2022 Thin prep Papanicolaou smear with manual screening 40 U/L 15-37 [facility] Work Phone: Comment on above: Moderate Hemolysis, Result may be falsely increased. Thin prep Papanicolaou smear with manual screening 9 5-15 [facility] Work Phone: Urine blood detectionon 08-0 RBC Ql (U) 150 /ul Negative [facility] Work Phone: RBC Ql (U) 0-5 SEEN /hpf 0-5 [facility] Work Phone: Urine clarityon 06-07-2022 Clarity (U) Clear Clear [facility] Work Phone: Urine color determinationon 06-07-2022 Color (U) Yellow Yellow [facility] Work Phone: Urine glucose detectionon Glucose Ql (U) 250 mg/dl Normal [facility] Work Phone: Urine leukocyte esterase det ection by dipstickon 06-07-2022 Leukocyte esterase Test strip Ql (U) Negative Negative [facility] Work Phone: Urine pHon 06-07-2022 pH (U) 6.0 [pH] 5.0 - 8.0 [facility] Work Phone: Urine sediment bacteria coun t by microscopy (number/high power field)on 06-07-2022 Bacteria LM.HPF (Urine sed) [#/Area] RARE /hpf None Seen [facility] Work Phone: Urine specific gravity measu rementon 06-07-2022 Specific gravity (U) [Rel density] 1.015 1.002-1.03 0 [facility] Work Phone: Urobilinogen Auto test strip Ql (U)on 06-07-2022 Urobilinogen Ql (U) Normal mg/dl Normal [facility] Work Phone: Basophil percentageon 2021 Bilirubin [Mass/Vol] 0.70 mg/dL 0.20-1.00 [facility] Work Phone: Comment on above: For patients on eltr ombopag therapy, use of Dimension [place] TBIL is not recommended. Chloride [Moles/Vol] 102 mmol/L 98-107 [facility] Work Phone: Glucose [Mass/Vol] 250 mg/dL 74-106 [facility] Work Phone: Comment on above: Glucose result great er than or equal to 200 mg/dLsuggests DIABETES MELLITUS per A.D.A. criteria. Potassium [Moles/Vol] 3.7 mmol/L 3.5-5.1 [facility] Work Phone: Protein [Mass/Vol] 7.8 g/dL 6.4-8.2 [facility] Work Phone: [phone] Sodium [Moles/Vol] 137 mmol/L 136-145 [facility] Work Phone: [phone] Laboratory - Chemistry and C hemistry - challengeon 05-24-2022 ALP [Catalytic activity/Vol] 183 U/L 45-117 [facility] Work Phone: [phone] ALT [Catalytic activity/Vol] 23 U/L 16-61 [facility] Work Phone: [phone] CO2 [Moles/Vol] 28.0 mmol/L 21.0-32.0 [facility] Work Phone: [phone] Cobalamin (Vitamin B12) [Mass/Vol] 837 pg/mL 211-911 [facility] Work Phone: [phone] Globulin (S) [Mass/Vol] 4.3 g/dL 2.2-4.2 [facility] Work Phone: [phone] Urea nitrogen/Creatinine [Mass ratio] 25.8 mg/mg 10-20 [facility] Work Phone: [phone] No Panel Informationon 05-24 Estimated GFR (MDRD) Amer 69 mL/min >60 [facility] Work Phone: Comment on above: GFR Calc Estimated GFR (MDRD) Non-Af Amer 57 mL/min >60 [facility] Work Phone: Comment on above: Non- GFR Calc Free Lambda Light Chains, Quant 57.5 mg/L 5.7-26.3 [facility] Work Phone: Thyroid Stimulating Hormone (TSH) 2.50 uIU/mL 0.358-3.74 [facility] Work Phone: Whole Blood Vitamin B1 Level 196.2 nmol/L 66.5-200.0 [facility] Work Phone: Comment on above: Performed at: [facility] [address] [id number] Director: Jay Grijalva PhD, Phone: [phone] at: [facility] [address] [id number] Director: Jodran Landeros MD, Phone: [phone] Serum immunoglobulin kappa l ight chains/immunoglobulin lambda light chains mass ratioon 05-24-2022 Immunoglobulin light chains.kappa/Immunoglobu sandy light chains.lambda (S) [Mass ratio] 1.15 0.26-1.65 [facility] Work Phone: Serum or plasma albumin carol urement (mass/volume)on 05-24-2022 Albumin [Mass/Vol] 3.5 g/dL 3.2-5.0 [facility] Work Phone: Serum or plasma albumin/glob ulin mass ratioon 05-24-2022 Albumin/Globulin [Mass ratio] 0.8 {ratio} 0.9-2.4 [facility] Work Phone: Serum or plasma calcium carol urement (mass/volume)on 05-24-2022 Calcium [Mass/Vol] 9.5 mg/dL 8.5-10.1 [facility] Work Phone: Serum or plasma creatinine m easurement (mass/volume)on 05-24-2022 Creatinine [Mass/Vol] 1.32 mg/dL 0.70-1.30 [facility] Work Phone: Comment on above: The validity of the calculated GFR & GFRAA in patients over 70 years has not been determined. Clinical correlation is essential. Serum or plasma folate measu rement (mass/volume)on 05-24-2022 Folate [Mass/Vol] 24.10 ng/mL 3.1-55.4 [facility] Work Phone: Serum or plasma immunoglobul in kappa light chains measurement (mass/volume)on 05-24-2022 Immunoglobulin light chains.kappa [Mass/Vol] 66.1 mg/L 3.3-19.4 [facility] Work Phone: Serum or plasma urea nitroge n measurement (mass/volume)on 05-24-2022 Urea nitrogen [Mass/Vol] 34 mg/dL -18 [facility] Work Phone: Thin prep Papanicolaou smear with manual screeningon 05-24-2022 Thin prep Papanicolaou smear with manual screening 13 U/L 15-37 [facility] Work Phone: Thin prep Papanicolaou smear with manual screening 7 5-15 [facility] Work Phone: XR HIP RIGHT WITH PELVIS [...] noted. RWA/trn Workstation ID: [id number] Dictated by: OKDI LANZA on TueMay 21, 2022 10:24:42 AM EDT Transcribed by: SIDDHARTH ALEXANDRE on TueMay 21, 2022 10:37:15 AM EDT Finalized by: KODI LANZA on TueMay 21, 2022 10:48:53 AM EDT [facility] Comment on above: Order Comment: Injur [...] whether these clips are intra or extracranial. [employer] Workstation ID: [id number] Dictated by: AMBROSIO DENNEY on TueMay 05, 2022 1:32:49 PM EDT Transcribed by: WANDER FERRARO on TueMay 05, 2022 1:52:18 PM EDT Finalized by: AMBROSIO DENNEY on TueMay 05, 2022 6:58:06 PM EDT [facility] Comment on above: Order Comment: PATIE NT WAITING TO GO IN MRI SCANNER. Injury/Trauma or Illness?:Illness/Other How long have you had these symptoms (acute/chronic)?:Acute Reason for exam?:NEEDED TO CLEAR FOR MRI, Hx of brain surgery History of cancer?: Surgeries, chemotherapy, or radiation?: Type of Exam?:Initial Additional signs and symptoms?: Absolute lymphocyte counton 04-30-2022 Lymphocytes Auto (Unsp spec) [#/Vol] 0.37 10*3/uL 0.83-4.51 [facility] Work Phone: Basophil percentageon 2021 Basophils/100 WBC (Bld) 0.5 % 0-1 [facility] Work Phone: Chloride [Moles/Vol] 102 mmol/L 98-107 [facility] Work Phone: Eosinophils/100 WBC (Bld) 3.6 % 0-5 [facility] Work Phone: Glucose [Mass/Vol] 190 mg/dL 74-106 [facility] Work Phone: Comment on above: Fasting Glucose resu lt greater than or equal to 126 mg/dL suggests DIABETES MELLITUS per A.D.A. criteria. Neutrophils (Bld) [#/Vol] 7.3 10*3/uL 2.0-7.7 [facility] Work Phone: Neutrophils/100 WBC (Bld) 83.3 % 47-70 [facility] Work Phone: Potassium [Moles/Vol] 4.3 mmol/L 3.5-5.1 [facility] Work Phone: Sodium [Moles/Vol] 137 mmol/L 136-145 [facility] Work Phone: WBC (Bld) [#/Vol] 8.7 10*3/uL 4.4-11.0 [facility] Work Phone: Blood erythrocytes count (nu mber/volume)on 04-30-2022 RBC (Bld) [#/Vol] 3.89 10*6/uL 4.6-6.2 [facility] Work Phone: Blood hemoglobin measurement (mass/volume)on 04-30-2022 Hemoglobin (Bld) [Mass/Vol] 12.0 g/dL 13.0-16.5 [facility] Work Phone: Blood lymphocytes/100 leukoc yteson 04-30-2022 Lymphocytes/100 WBC (Bld) 4.3 % 19-41 [facility] Work Phone: Blood manual differential co mment interpretation (narrative result)on 04-30-2022 Manual differential comment Timur (Bld) [Interp] SCANNED [facility] Work Phone: Comment on above: LYMPHOPENIA NOTED Blood monocytes/100 leukocyt eson 04-30-2022 Monocytes/100 WBC (Bld) 6.8 % 0-10 [facility] Work Phone: Blood platelet mean volumeon 04-30-2022 Platelet mean volume (Bld) [Entitic vol] 12.2 fL 6.2-12.0 [facility] Work Phone: Determination of erythrocyte mean corpuscular volume (MCV)on 04-30-2022 MCV (RBC) [Entitic vol] 98.2 fL 80-94 [facility] Work Phone: Hematocrit Auto (Bld) [Volum e fraction]on 04-30-2022 Hematocrit (Bld) [Volume fraction] 38.2 % 40-54 [facility] Work Phone: Laboratory - Chemistry and C hemistry - challengeon 04-30-2022 CO2 [Moles/Vol] 30.0 mmol/L 21.0-32.0 [facility] Work Phone: Magnesium [Mass/Vol] 2.2 mg/dL 1.6-2.6 [facility] Work Phone: [phone] Natriuretic peptide B (Bld) [Mass/Vol] 674.3 pg/mL 0-100 [facility] Work Phone: [phone] Urea nitrogen/Creatinine [Mass ratio] 27.4 mg/mg 10-20 [facility] Work Phone: [phone] Laboratory - Hematology and Cell countson 04-30-2022 Anisocytosis Ql (Bld) 1+ [facility] Work Phone: [phone] Erythrocyte distribution width (RBC) [Entitic vol] 66.2 fL 35.1-43.9 [facility] Work Phone: [phone] Erythrocyte distribution width (RBC) [Ratio] 18.3 % 11.6-14.6 [facility] Work Phone: Immature granulocytes/100 WBC (Bld) 1.500 % 0.0-0.9 [facility] Work Phone: Comment on above: IG% - Immature Granu locytes (promyelocytes, myelocytes and metamyelocytes) > 1% indicates that a LEFT SHIFT is Present. MCH (RBC) [Entitic mass] 30.8 pg 27.0-32.0 [facility] Work Phone: Nucleated RBC/100 WBC (Bld) [Ratio] 0 % 0-5 [facility] Work Phone: MCHC Auto (RBC) [Mass/Vol]on 04-30-2022 MCHC (RBC) [Mass/Vol] 31.4 g/dL 32-36 [facility] Work Phone: Macrocytes detectionon 04-30 Macrocytes Ql (Bld) 1+ [facility] Work Phone: No Panel Informationon 04-30 Estimated Creatinine Clearance Calc 51.64 ml/min [facility] Work Phone: Estimated GFR (MDRD) Amer 67 mL/min >60 [facility] Work Phone: Comment on above: GFR Calc Estimated GFR (MDRD) Non-Af Amer 56 mL/min >60 [facility] Work Phone: Comment on above: Non- GFR Calc Platelets bldon 04-30-2022 Platelets (Bld) [#/Vol] 123 10*3/uL 150-450 [facility] Work Phone: Serum or plasma calcium carol urement (mass/volume)on 04-30-2022 Calcium [Mass/Vol] 8.7 mg/dL 8.5-10.1 [facility] Work Phone: Serum or plasma creatinine m easurement (mass/volume)on 04-30-2022 Creatinine [Mass/Vol] 1.35 mg/dL 0.70-1.30 [facility] Work Phone: Comment on above: The validity of the calculated GFR & GFRAA in patients over 70 years has not been determined. Clinical correlation is essential. Serum or plasma urea nitroge n measurement (mass/volume)on 04-30-2022 Urea nitrogen [Mass/Vol] 37 mg/dL 7-18 [facility] Work Phone: Thin prep Papanicolaou smear with manual screeningon 04-30-2022 Thin prep Papanicolaou smear with manual screening 5 5-15 [facility] Work Phone: Basophil percentageon 2021 Chloride [Moles/Vol] 102 mmol/L 98-107 [facility] Work Phone: Glucose [Mass/Vol] 93 mg/dL 74-106 [facility] Work Phone: Potassium [Moles/Vol] 4.5 mmol/L 3.5-5.1 [facility] Work Phone: Sodium [Moles/Vol] 137 mmol/L 136-145 [facility] Work Phone: Glucose Glucometer (BldC) [M ass/Vol]on 04-27-2022 Glucose [Mass/Vol] 85 mg/dL 74-106 [facility] Work Phone: Comment on above: MANAGEMENT OF PATIEN T CARE PER NURSING PROTOCOL Laboratory - Chemistry and C hemistry - challengeon 04-27-2022 CO2 [Moles/Vol] 28.0 mmol/L 21.0-32.0 [facility] Work Phone: Urea nitrogen/Creatinine [Mass ratio] 30.7 mg/mg 10-20 [facility] Work Phone: No Panel Informationon 04-27 Estimated Creatinine Clearance Calc 39.61 ml/min [facility] Work Phone: Estimated GFR (MDRD) Amer 50 mL/min >60 [facility] Work Phone: Comment on above: GFR Calc Estimated GFR (MDRD) Non-Af Amer 41 mL/min >60 [facility] Work Phone: Comment on above: Non- GFR Calc Serum or plasma calcium carol urement (mass/volume)on 04-27-2022 Calcium [Mass/Vol] 8.9 mg/dL 8.5-10.1 [facility] Work Phone: Serum or plasma creatinine m easurement (mass/volume)on 04-27-2022 Creatinine [Mass/Vol] 1.76 mg/dL 0.70-1.30 [facility] Work Phone: Comment on above: The validity of the calculated GFR & GFRAA in patients over 70 years has not been determined. Clinical correlation is essential. Serum or plasma urea nitroge n measurement (mass/volume)on 04-27-2022 Urea nitrogen [Mass/Vol] 54 mg/dL 7-18 [facility] Work Phone: Thin prep Papanicolaou smear with manual screeningon 04-27-2022 Thin prep Papanicolaou smear with manual screening 7 5-15 [facility] Work Phone: Absolute lymphocyte counton 04-26-2022 Lymphocytes Auto (Unsp spec) [#/Vol] 0.22 10*3/uL 0.83-4.51 [facility] Work Phone: Basophil percentageon 2021 Basophils/100 WBC (Bld) 0.2 % 0-1 [facility] Work Phone: Bilirubin [Mass/Vol] 1.00 mg/dL 0.20-1.00 [facility] Work Phone: Comment on above: For patients on eltr ombopag therapy, use of Dimension [place] TBIL is not recommended. Cholesterol [Mass/Vol] 103 mg/dL <200 [facility] Work Phone: Comment on above: <200 mg/dL Desirable 200-240 mg/dL Borderline >240 mg/dL High Risk Eosinophils/100 WBC (Bld) 0.1 % 0-5 [facility] Work Phone: Neutrophils (Bld) [#/Vol] 7.8 10*3/uL 2.0-7.7 [facility] Work Phone: Neutrophils/100 WBC (Bld) 94.1 % 47-70 [facility] Work Phone: [phone] Protein [Mass/Vol] 6.8 g/dL 6.4-8.2 [facility] Work Phone: [phone] Triglyceride [Mass/Vol] 50 mg/dL <199 [facility] Work Phone: [phone] Comment on above: The drugs N-Acetylcy steine and Metamizole may falsely depress this assay.Serum Triglycerides Reference Interval Normal <150 mg/dL Borderline high 150 - 199 mg/dL High 200 - 499 mg/dL Very High > or = 500 mg/dL WBC (Bld) [#/Vol] 8.3 10*3/uL 4.4-11.0 [facility] Work Phone: [phone] Blood erythrocytes count (nu mber/volume)on 04-26-2022 RBC (Bld) [#/Vol] 3.90 10*6/uL 4.6-6.2 [facility] Work Phone: [phone] Blood hemoglobin measurement (mass/volume)on 04-26-2022 Hemoglobin (Bld) [Mass/Vol] 12.1 g/dL 13.0-16.5 [facility] Work Phone: Blood lymphocytes/100 leukoc yteson 04-26-2022 Lymphocytes/100 WBC (Bld) 2.6 % 19-41 [facility] Work Phone: [phone] Blood manual differential co mment interpretation (narrative result)on 04-26-2022 Manual differential comment Timur (Bld) [Interp] SCANNED [facility] Work Phone: Blood monocytes/100 leukocyt eson 04-26-2022 Monocytes/100 WBC (Bld) 1.9 % 0-10 [facility] Work Phone: [phone] Blood platelet mean volumeon 04-26-2022 Platelet mean volume (Bld) [Entitic vol] 11.5 fL 6.2-12.0 [facility] Work Phone: Determination of erythrocyte mean corpuscular volume (MCV)on 04-26-2022 MCV (RBC) [Entitic vol] 100.3 fL 80-94 [facility] Work Phone: [phone] Hematocrit Auto (Bld) [Volum e fraction]on 04-26-2022 Hematocrit (Bld) [Volume fraction] 39.1 % 40-54 [facility] Work Phone: [phone] Laboratory - Chemistry and C hemistry - challengeon 04-26-2022 ALP [Catalytic activity/Vol] 211 U/L 45-117 [facility] Work Phone: [phone] ALT [Catalytic activity/Vol] 31 U/L 16-61 [facility] Work Phone: [phone] Globulin (S) [Mass/Vol] 3.9 g/dL 2.2-4.2 [facility] Work Phone: [phone] Laboratory - Hematology and Cell countson 04-26-2022 Erythrocyte distribution width (RBC) [Entitic vol] 68.8 fL 35.1-43.9 [facility] Work Phone: [phone] Erythrocyte distribution width (RBC) [Ratio] 18.6 % 11.6-14.6 [facility] Work Phone: [phone] Immature granulocytes/100 WBC (Bld) 1.100 % 0.0-0.9 [facility] Work Phone: Comment on above: IG% - Immature Granu locytes (promyelocytes, myelocytes and metamyelocytes) > 1% indicates that a LEFT SHIFT is Present. MCH (RBC) [Entitic mass] 31.0 pg 27.0-32.0 [facility] Work Phone: [phone] Nucleated RBC/100 WBC (Bld) [Ratio] 0 % 0-5 [facility] Work Phone: [phone] MCHC Auto (RBC) [Mass/Vol]on 04-26-2022 MCHC (RBC) [Mass/Vol] 30.9 g/dL 32-36 [facility] Work [facility]: No Panel Informationon 04-26 Troponin I High Sensitivity 92 pg/mL 3.0-78.0 [facility] Work Phone: Comment on above: Please Note: [place] t Units and Gender Specific Reference Ranges. For more information see Policy Stat Procedure [place] High Sensitivity Troponin (TNIH) and attachments. Platelets bldon 04-26-2022 Platelets (Bld) [#/Vol] 154 10*3/uL 150-450 [facility] Work Phone: Serum or plasma albumin carol urement (mass/volume)on 04-26-2022 Albumin [Mass/Vol] 2.9 g/dL 3.2-5.0 [facility] Work Phone: Serum or plasma albumin/glob ulin mass ratioon 04-26-2022 Albumin/Globulin [Mass ratio] 0.7 {ratio} 0.9-2.4 [facility] Work Phone: Serum or plasma cholesterol in HDL measurement (mass/volume)on 04-26-2022 Cholesterol in HDL [Mass/Vol] 29 mg/dL >40 [facility] Work Phone: Comment on above: The drugs N-Acetylcy steine and Metamizole may falsely depress this assay. Reference Range HDL <40 mg/dL Low HDL Cholesterol HDL >or= 60 mg/dL High HDL Cholesterol Serum or plasma cholesterol in VLDL measurement (mass/volume)on 04-26-2022 Cholesterol in VLDL [Mass/Vol] 10 mg/dL 5-40 [facility] Work Phone: Serum or plasma low density lipoprotein (LDL) cholesterol measurement (mass/volume)on 04-26-2022 Cholesterol in LDL [Mass/Vol] 64 mg/dL 0-130 [facility] Work Phone: Thin prep Papanicolaou smear with manual screeningon 04-26-2022 Thin prep Papanicolaou smear with manual screening 19 U/L 15-37 [facility] Work Phone: Laboratory - Chemistry and C hemistry - challengeon 04-25-2022 Natriuretic peptide B (Bld) [Mass/Vol] 1203.2 pg/mL 0-100 [facility] Work Phone: Laboratory - Hematology and Cell countson 04-25-2022 Anisocytosis Ql (Bld) 2+ [facility] Work Phone: Macrocytes detectionon 04-25 Macrocytes Ql (Bld) 1+ [facility] Work Phone: Thin prep Papanicolaou smear with manual screeningon 04-25-2022 Thin prep Papanicolaou smear with manual screening 1+ [facility] Work Phone: Glucose Glucometer (BldC) [M ass/Vol]on 04-14-2022 Glucose [Mass/Vol] 109 mg/dL 74-106 [facility] Work Phone: Comment on above: MANAGEMENT OF PATIEN T CARE PER NURSING PROTOCOL No Panel Informationon 04-13 Prostate Specific Antigen Total 0.03 ng/mL 0.0-4.0 [facility] Work Phone: Comment on above: This test was perfor med using the TPSA assay method for [employer] chemistry system. Values obtained with differentassay methods cannot be used interchangably.When changing PSA assays in the course of monitoring apatient, additional sequential testing should be carriedout to confirm baseline values. Glucose Glucometer (BldC) [M ass/Vol]on 04-12-2022 Glucose [Mass/Vol] 209 mg/dL 74-106 [facility] Work Phone: Comment on above: MANAGEMENT OF PATIEN T CARE PER NURSING PROTOCOL Absolute lymphocyte counton 04-11-2022 Lymphocytes Auto (Unsp spec) [#/Vol] 0.27 10*3/uL 0.83-4.51 [facility] Work Phone: Basophil percentageon 2021 Basophils/100 WBC (Bld) 0.4 % 0-1 [facility] Work Phone: Chloride [Moles/Vol] 114 mmol/L 98-107 [facility] Work Phone: Eosinophils/100 WBC (Bld) 4.3 % 0-5 [facility] Work Phone: Glucose [Mass/Vol] 152 mg/dL 74-106 [facility] Work Phone: Comment on above: Fasting Glucose resu lt greater than or equal to 126 mg/dL suggests DIABETES MELLITUS per A.D.A. criteria. Neutrophils (Bld) [#/Vol] 3.8 10*3/uL 2.0-7.7 [facility] Work Phone: Neutrophils/100 WBC (Bld) 81.9 % 47-70 [facility] Work Phone: Potassium [Moles/Vol] 4.0 mmol/L 3.5-5.1 [facility] Work Phone: Sodium [Moles/Vol] 142 mmol/L 136-145 [facility] Work Phone: WBC (Bld) [#/Vol] 4.6 10*3/uL 4.4-11.0 [facility] Work Phone: Blood erythrocytes count (nu mber/volume)on 04-11-2022 RBC (Bld) [#/Vol] 3.14 10*6/uL 4.6-6.2 [facility] Work Phone: Blood hemoglobin measurement (mass/volume)on 04-11-2022 Hemoglobin (Bld) [Mass/Vol] 9.7 g/dL 13.0-16.5 [facility] Work Phone: Blood lymphocytes/100 leukoc yteson 04-11-2022 Lymphocytes/100 WBC (Bld) 5.8 % 19-41 [facility] Work Phone: Blood monocytes/100 leukocyt eson 04-11-2022 Monocytes/100 WBC (Bld) 6.3 % 0-10 [facility] Work Phone: Blood platelet mean volumeon 04-11-2022 Platelet mean volume (Bld) [Entitic vol] 11.0 fL 6.2-12.0 [facility] Work Phone: Determination of erythrocyte mean corpuscular volume (MCV)on 04-11-2022 MCV (RBC) [Entitic vol] 101.6 fL 80-94 [facility] Work Phone: [phone] Hematocrit Auto (Bld) [Volum e fraction]on 04-11-2022 Hematocrit (Bld) [Volume fraction] 31.9 % 40-54 [facility] Work Phone: [phone] Laboratory - Chemistry and C hemistry - challengeon 04-11-2022 CO2 [Moles/Vol] 23.0 mmol/L 21.0-32.0 [facility] Work Phone: Urea nitrogen/Creatinine [Mass ratio] 24.1 mg/mg 10-20 [facility] Work Phone: [phone] Laboratory - Hematology and Cell countson 04-11-2022 Anisocytosis Ql (Bld) RARE [facility] Work Phone: [phone] Erythrocyte distribution width (RBC) [Entitic vol] 68.3 fL 35.1-43.9 [facility] Work Phone: [phone] Erythrocyte distribution width (RBC) [Ratio] 18.5 % 11.6-14.6 [facility] Work Phone: [phone] Immature granulocytes/100 WBC (Bld) 1.300 % 0.0-0.9 [facility] Work Phone: [phone] Comment on above: IG% - Immature Granu locytes (promyelocytes, myelocytes and metamyelocytes) > 1% indicates that a LEFT SHIFT is Present. MCH (RBC) [Entitic mass] 30.9 pg 27.0-32.0 [facility] Work Phone: [phone] Nucleated RBC/100 WBC (Bld) [Ratio] 0 % 0-5 [facility] Work Phone: [phone] MCHC Auto (RBC) [Mass/Vol]on 04-11-2022 MCHC (RBC) [Mass/Vol] 30.4 g/dL 32-36 [facility] Work Phone: No Panel Informationon 04-11 Estimated Creatinine Clearance Calc 60.10 ml/min [facility] Work Phone: Estimated GFR (MDRD) Amer 80 mL/min >60 [facility] Work Phone: Comment on above: GFR Calc Estimated GFR (MDRD) Non-Af Amer 66 mL/min >60 [facility] Work Phone: Comment on above: Non- GFR Calc Platelets bldon 04-11-2022 Platelets (Bld) [#/Vol] 160 10*3/uL 150-450 [facility] Work Phone: Serum or plasma calcium carol urement (mass/volume)on 04-11-2022 Calcium [Mass/Vol] 8.7 mg/dL 8.5-10.1 [facility] Work Phone: Serum or plasma creatinine m easurement (mass/volume)on 04-11-2022 Creatinine [Mass/Vol] 1.16 mg/dL 0.70-1.30 [facility] Work Phone: Comment on above: The validity of the calculated GFR & GFRAA in patients over 70 years has not been determined. Clinical correlation is essential. Serum or plasma urea nitroge n measurement (mass/volume)on 04-11-2022 Urea nitrogen [Mass/Vol] 28 mg/dL 7-18 [facility] Work Phone: Thin prep Papanicolaou smear with manual screeningon 04-11-2022 Thin prep Papanicolaou smear with manual screening 5 5-15 [facility] Work Phone: Macrocytes detectionon 04-04 Macrocytes Ql (Bld) 1+ [facility] Work Phone: Basophil percentageon 2021 Basophil percentage 0-5 SEEN /hpf 0-5 [facility] Work Phone: Bilirubin Test strip Ql (U)o n 03-31-2022 Bilirubin Ql (U) Negative Negative [facility] Work Phone: Culture, urineon 03-31-2022 Bacteria identified Cx Nom (U) Culture exhibits no growth. [facility] Work Phone: Ketones Test strip Ql (U)on 03-31-2022 Ketones Ql (U) Negative Negative [facility] Work Phone: Mucus LM Ql (Urine sed)on Mucus Ql (Urine sed) 0 SEEN /hpf [facility] Work Phone: Nitrite Test strip Ql (U)on 03-31-2022 Nitrite Ql (U) Negative Negative [facility] Work Phone: Protein Test strip Ql (U)on 03-31-2022 Protein Ql (U) 100 mg/dl Negative [facility] Work Phone: Squamous epithelial cells de tection in urine sediment by light microscopyon 03-31-2022 Epithelial cells.squamous LM Ql (Urine sed) 0 SEEN /hpf 0-5 [facility] Work Phone: Urine blood detectionon 03-08 RBC Ql (U) 25 /ul Negative [facility] Work Phone: RBC Ql (U) 0-5 SEEN /hpf 0-5 [facility] Work Phone: Urine clarityon 03-31-2022 Clarity (U) Clear Clear [facility] Work Phone: Urine color determinationon 03-31-2022 Color (U) Yellow Yellow [facility] Work Phone: Urine glucose detectionon Glucose Ql (U) Normal mg/dl Normal [facility] Work Phone: Urine leukocyte esterase det ection by dipstickon 03-31-2022 Leukocyte esterase Test strip Ql (U) Negative Negative [facility] Work Phone: Urine pHon 03-31-2022 pH (U) 6.0 [pH] 5.0 - 8.0 [facility] Work Phone: Urine sediment bacteria coun t by microscopy (number/high power field)on 03-31-2022 Bacteria LM.HPF (Urine sed) [#/Area] 0 /[HPF] None Seen [facility] Work Phone: Urine specific gravity measu rementon 03-31-2022 Specific gravity (U) [Rel density] 1.015 1.002-1.03 0 [facility] Work Phone: Urobilinogen Auto test strip Ql (U)on 03-31-2022 Urobilinogen Ql (U) Normal mg/dl Normal [facility] Work Phone: Blood manual differential co mment interpretation (narrative result)on 03-28-2022 Manual differential comment Timur (Bld) [Interp] SCANNED [facility] Work Phone: XR HIP RIGHT 2-3 VIEWS [...] periprosthetic fractures. IMPRESSION: Intact right hip replacement. [employer] Workstation ID: [id number] Dictated by: AMBROSIO DENNEY on TueMarch 23, 2022 3:28:52 PM EDT Transcribed by: WANDER FERRARO on TueMarch 23, 2022 3:57:11 PM EDT Finalized by: AMBROSIO DENNEY on TueMarch 23, 2022 8:40:10 PM EDT Normal [facility] Comment on above: Order Comment: Injur [...] with less than 25% height loss. Osteopenia. [employer] Workstation ID: [id number] Dictated by: AMBROSIO DENNEY on TueMarch 24, 2022 8:14:53 PM EDT Transcribed by: MARILYNN HARDING on TueMarch 24, 2022 8:20:38 PM EDT Finalized by: AMBROSIO DENNEY on TueMarch 25, 2022 7:22:23 PM EDT Normal [facility] Comment on above: Order Comment: Injur y/Trauma or Illness?:Illness/Other How long have you had these symptoms (acute/chronic)?:Acute Reason for exam?:low back pain History of cancer?: Surgeries, chemotherapy, or radiation?: Type of Exam?:Initial Additional signs and symptoms?: Blood band neutrophil count as percentage of total leukocyteson 03-07-2022 Band form neutrophils/100 WBC (Bld) 1 % 0-5 [facility] Work Phone: Blood eosinophils/100 leukoc yteson 03-07-2022 Eosinophils/100 WBC (Bld) 12 % 0-5 [facility] Work Phone: Blood lymphocytes/100 leukoc yteson 03-07-2022 Lymphocytes/100 WBC (Bld) 5 % 19-41 [facility] Work Phone: Blood metamyelocytes/100 jannet kocyteson 03-07-2022 Metamyelocytes/100 WBC (Bld) 1 % 0-1 [facility] Work Phone: [phone] Blood monocytes/100 leukocyt eson 03-07-2022 Monocytes/100 WBC (Bld) 6 % 0-10 [facility] Work Phone: [phone] Blood platelet adequacy dete ction by light microscopyon 03-07-2022 Platelets LM Ql (Bld) ADEQUATE ADEQ [facility] Work Phone: [phone] Blood polychromasia detectio n by light microscopyon 03-07-2022 Polychromasia LM Ql (Bld) RARE [facility] Work Phone: Blood segmented neutrophils/ 100 leukocyteson 03-07-2022 Segmented neutrophils/100 WBC (Bld) 74 % 47-70 [facility] Work Phone: [phone] Laboratory - Hematology and Cell countson 03-07-2022 Myelocytes/100 WBC (Bld) 1 % 0-0 [facility] Work Phone: [phone] RBC morphologyon 03-07-2022 RBC morphology finding Nom (Bld) NORM C+C NORMAL NORM C&C [facility] Work Phone: [phone] Review by pathologiston 05-0 Pathologist review Timur (Unsp spec) [Interp] Reviewed [facility] Work Phone: Comment on above: Previous reported re sult: Bruna calloway Edited by: RGOOD on 03/10/22:1248Neutrophilic left shift.Macrocytic anemia.Nick Cadena M.D. 03/10/22 AMENDED REPORT 03/10/22 1248 PATH REV previously reported as: Bruna calloway Total cell counton 2 Cells counted Molgen (Bld/Tiss) [#] 100 MANUAL DIFF [facility] Work Phone: Urine sediment fine granular cast count by microscopy (number/low power field)on 03-01-2022 Fine Granular Casts LM.LPF (Urine sed) [#/Area] 0-5 SEEN /lpf 0-5 [facility] Work Phone: COVID-19, MOLECULARon 2021 SARS-CoV-2 (COVID-19) RNA ANUJ+probe Ql (Unsp spec) Not detected Normal Not Detected [facility] Comment on above: Order Comment: Injur y/Trauma or Illness?:Illness/Other How long have you had these symptoms (acute/chronic)?:Acute Reason for exam?:right hip fx Type of Exam?:Initial Additional signs and symptoms?:n/a Performed By: #### L [id number] ####[facility] [address] [place], [place] [address] Andrew Rendon M.D. [id number] XR HIP RIGHT 1 VIEWon 2021 XR [...] type, unspecified whether angina present, unspecified whether iliamna or transplanted heart I48.91 Atrial fibrillation and [...] ID: [id number] Dictated by: ÁLVARO DAVIS on [facility] Feb 13, 2022 11:48:58 PM EDT Transcribed by: ÁLVARO DAVIS on [facility] Feb 13, 2022 11:48:58 PM EDT Finalized by: ÁLVARO DAVIS on [facility] Feb 13, 2022 11:48:58 PM EDT Normal [facility] Comment on above: Order Comment: Injur [...] type, unspecified whether angina present, unspecified whether iliamna or transplanted heart I48.91 Atrial fibrillation and [...] colonic diverticulosis. The bladder is decompressed by York catheter. IMPRESSION: Mildly displaced/impacted right subcapital femoral neck fracture. Workstation ID: [id number] Dictated by: BERNARDA HOLLIS on TueFeb 11, 2022 3:43:38 PM EDT Transcribed by: BERNARDA HOLLIS on TueFeb 11, 2022 3:43:38 PM EDT Finalized by: BERNARDA HOLLIS on TueFeb 11, 2022 3:43:38 PM EDT [facility] Comment on above: Order Comment: Injur [...] Date: 02/11/2022 11:55 AM Patient Status: Inpatient Turbinated Bone Grinder: Shayne, Ela, TOBIAS Exam Type: ECHOCARDIOGRAM COMPLETE Study Info Indications I50.9 - Heart failure, unspecified Referring Physician: SYSTEM, PROVIDER NOT IN ; [id number] BMI: 24.22 kg/m2 Summary 1. Left ventricular [...] mmHg MV VTI 22 cm MV Decel Lucas 371 cm/s2 MV PHT 61 ms MV Area (PHT) 3.6 cm2 4.0-5.0 MV Area (Cont Eq VTI) 3.4 cm2 MV Area Index (Cont Eq VTI) 1.78 cm2/m2 MV Diastolic Function MV E Peak Velocity 1 m/s MV A Peak Velo (more content not included)... Normal [facility] Absolute lymphocyte counton 02-10-2022 Lymphocytes Auto (Unsp spec) [#/Vol] 0.11 10*3/uL 0.83-4.51 [facility] Work Phone: [phone] Basophil percentageon 2021 Basophil percentage 3.5 mg/dL 2.5-4.9 [facility] Work [facility]: Basophils/100 WBC (Bld) 0.1 % 0-1 [facility] Work Phone: [phone] Chloride [Moles/Vol] 111 mmol/L 98-107 [facility] Work Phone: [phone] Eosinophils/100 WBC (Bld) 0.6 % 0-5 [facility] Work Phone: [phone] Glucose [Mass/Vol] 232 mg/dL 74-106 [facility] Work Phone: [phone] Comment on above: Glucose result great er than or equal to 200 mg/dLsuggests DIABETES MELLITUS per A.D.A. criteria. Lactate [Moles/Vol] 0.8 mmol/L 0.4-2.0 [facility] Work Phone: [phone] Neutrophils (Bld) [#/Vol] 6.3 10*3/uL 2.0-7.7 [facility] Work Phone: [phone] Neutrophils/100 WBC (Bld) 93.4 % 47-70 [facility] Work Phone: Potassium [Moles/Vol] 4.0 mmol/L 3.5-5.1 [facility] Work Phone: Sodium [Moles/Vol] 139 mmol/L 136-145 [facility] Work Phone: WBC (Bld) [#/Vol] 6.7 10*3/uL 4.4-11.0 [facility] Work Phone: Blood erythrocytes count (nu mber/volume)on 02-10-2022 RBC (Bld) [#/Vol] 3.58 10*6/uL 4.6-6.2 [facility] Work Phone: Blood hemoglobin measurement (mass/volume)on 02-10-2022 Hemoglobin (Bld) [Mass/Vol] 11.7 g/dL 13.0-16.5 [facility] Work Phone: Blood lymphocytes/100 leukoc yteson 02-10-2022 Lymphocytes/100 WBC (Bld) 1.6 % 19-41 [facility] Work Phone: Blood manual differential co mment interpretation (narrative result)on 02-10-2022 Manual differential comment Timur (Bld) [Interp] COMMENT [facility] Work Phone: Comment on above: LYMPHOPENIA. Blood monocytes/100 leukocyt eson 02-10-2022 Monocytes/100 WBC (Bld) 4.0 % 0-10 [facility] Work Phone: Blood platelet adequacy dete ction by light microscopyon 02-10-2022 Platelets LM Ql (Bld) MOD DEC ADEQ [facility] Work Phone: Blood platelet mean volumeon 02-10-2022 Platelet mean volume (Bld) [Entitic vol] 10.8 fL 6.2-12.0 [facility] Work Phone: Determination of erythrocyte mean corpuscular volume (MCV)on 02-10-2022 MCV (RBC) [Entitic vol] 95.0 fL 80-94 [facility] Work Phone: Hematocrit Auto (Bld) [Volum e fraction]on 02-10-2022 Hematocrit (Bld) [Volume fraction] 34.0 % 40-54 [facility] Work Phone: INR in Blood by Coagulation assayon 02-10-2022 INR Coag (Bld) [Relative time] 1.5 {INR} [facility] Work Phone: Laboratory - Chemistry and C hemistry - challengeon 02-10-2022 CO2 [Moles/Vol] 25.0 mmol/L 21.0-32.0 [facility] Work Phone: [phone] Magnesium [Mass/Vol] 2.0 mg/dL 1.6-2.6 [facility] Work Phone: [phone] Urea nitrogen/Creatinine [Mass ratio] 18.8 mg/mg 10-20 [facility] Work Phone: [phone] Laboratory - Coagulationon 0 02-10-2022 aPTT Coag (Bld) [Time] 34.8 s 24.1-36.2 [facility] Work Phone: PT Coag (PPP) [Time] 17.6 s 11.7-14.9 [facility] Work Phone: Laboratory - Hematology and Cell countson 02-10-2022 Erythrocyte distribution width (RBC) [Entitic vol] 48.6 fL 35.1-43.9 [facility] Work Phone: Erythrocyte distribution width (RBC) [Ratio] 14.3 % 11.6-14.6 [facility] Work Phone: [phone] Immature granulocytes/100 WBC (Bld) 0.300 % 0.0-0.9 [facility] Work Phone: [phone] Comment on above: IG% - Immature Granu locytes (promyelocytes, myelocytes and metamyelocytes) > 1% indicates that a LEFT SHIFT is Present. MCH (RBC) [Entitic mass] 32.7 pg 27.0-32.0 [facility] Work Phone: Nucleated RBC/100 WBC (Bld) [Ratio] 0 % 0-5 [facility] Work Phone: Laboratory - Microbiology an d Antimicrobial susceptibilityon 02-10-2022 Bacteria identified Cx Nom (Bld) No growth in 5 days. [facility] Work Phone: MCHC Auto (RBC) [Mass/Vol]on 02-10-2022 MCHC (RBC) [Mass/Vol] 34.4 g/dL 32-36 [facility] Work Phone: No Panel Informationon 02-10 Estimated Creatinine Clearance Calc 50.52 ml/min [facility] Work Phone: Estimated GFR (MDRD) Amer 66 mL/min >60 [facility] Work Phone: Comment on above: GFR Calc Estimated GFR (MDRD) Non-Af Amer 54 mL/min >60 [facility] Work Phone: Comment on above: Non- GFR Calc SARS-CoV-2 & FLU Antigen (Rapid) [facility] Work Phone: Platelets bldon 02-10-2022 Platelets (Bld) [#/Vol] 75 10*3/uL 150-450 [facility] Work Phone: Serum or plasma calcium carol urement (mass/volume)on 02-10-2022 Calcium [Mass/Vol] 9.2 mg/dL 8.5-10.1 [facility] Work Phone: Serum or plasma creatinine m easurement (mass/volume)on 02-10-2022 Creatinine [Mass/Vol] 1.38 mg/dL 0.70-1.30 [facility] Work Phone: Comment on above: The validity of the calculated GFR & GFRAA in patients over 70 years has not been determined. Clinical correlation is essential. Serum or plasma urea nitroge n measurement (mass/volume)on 02-10-2022 Urea nitrogen [Mass/Vol] 26 mg/dL 7-18 [facility] Work Phone: Serum procalcitonin measurem enton 02-10-2022 Procalcitonin [Mass/Vol] 0.30 ng/mL 0.00-0.09 [facility] Work Phone: Comment on above: A procalcitonin [...] prep Papanicolaou smear with manual screening 3 - [facility] Work Phone: XR CHEST PA/APon 02-10-2022 XR [...] suggestive of developing pulmonary edema or pneumonitis. [facility] Workstation ID: [id number] Dictated by: AMBROSIO DENNEY on TueFeb 11, 2022 9:13:18 AM EDT Transcribed by: SIDDHARTH YANG on TueFeb 11, 2022 9:53:14 AM EDT Finalized by: AMBROSIO DENNEY on TueFeb 11, 2022 7:10:32 PM EDT [facility] Comment on above: Order Comment: Injur [...] by: AMBROSIO DENNEY on TueFeb 11, 2022 9:30:57 AM EDT Transcribed by: RADHA BAUMANN on TueFeb 11, 2022 10:07:19 AM EDT Finalized by: AMBROSIO DENNEY on TueFeb 11, 2022 7:17:10 PM EDT [facility] Comment on above: Order Comment: Injur y/Trauma or Illness?:Injury/Trauma How long have you had these symptoms (acute/chronic)?:Acute Reason for exam?:right hip pain History of cancer?: Surgeries, chemotherapy, or radiation?: Type of Exam?:Initial Mechanism of injury?:fall Basophil percentageon 2021 Creatinine [Mass/Vol] 1.0 mg/dL 0.70-1.30 [facility] Work Phone: No Panel Informationon 01-14 Bedside Estimated GFR (eGFR) > 60.0000 mL/min >60 [facility] Work Phone: Glucose Glucometer (BldC) [M ass/Vol]on 01-06-2022 Glucose [Mass/Vol] 192 mg/dL 70-110 [facility] Work Phone: Comment on above: MANAGEMENT OF PATIEN T CARE PER NURSING PROTOCOL No Panel Informationon 01-04 SARS-CoV-2 Antigen (Rapid) [facility] Work Phone: Basophil percentageon 2021 Creatinine [Mass/Vol] 1.4 mg/dL 0.70-1.30 [facility] Work Phone: No Panel Informationon 11-19 Bedside Estimated GFR (eGFR) > 60.0000 mL/min >60 [facility] Work Phone: Culture, urine Bacteria identified Cx Nom (U) Culture exhibits no growth. [facility] Work Phone: Laboratory - Microbiology an d Antimicrobial susceptibility Bacteria identified Cx Nom (Bld) No growth in 5 days. [facility] Work Phone: No Panel Information SARS-CoV-2 & FLU Antigen (Rapid) [facility] Work Phone: SARS-CoV-2 Antigen (Rapid) [facility] Work Phone: Vital Signs Date Time Vital Sign Value Performing Clinician Facility 07-17-2025 11:36-0400 Body height 175.3 cm Lupe Rushing MD Work Phone: [facility] 07-17-2025 11:36-0400 Body mass index (BMI) [Ratio] 25.4 kg/m2 Lupe Rushing MD Work Phone: [facility] 07-17-2025 11:36-0400 Body temperature 97.2 [degF] Lupe Rushing MD Work Phone: [facility] 07-17-2025 11:36-0400 Body weight 78.02 kg Lupe Rushing MD Work Phone: [facility] 07-17-2025 11:36-0400 Diastolic blood pressure 58 mm[Hg] Lupe Rushing MD Work Phone: [facility] 07-17-2025 11:36-0400 Heart rate 66 /min Lupe Rushing MD Work Phone: [facility] 07-17-2025 11:36-0400 SaO2% (BldA) [Mass fraction] 97 % Lupe Rushing MD Work Phone: [facility] 07-17-2025 11:36-0400 Systolic blood pressure 95 mm[Hg] Lupe Rushing MD Work Phone: [facility] 07-17-2025 10:40-0400 Body height 175.3 cm Merlin Loredo MD Work Phone: [facility] 07-17-2025 10:40-0400 Body mass index (BMI) [Ratio] 25.4 kg/m2 Merlin Loredo MD Work Phone: [facility] 07-17-2025 10:40-0400 Body temperature 97.2 [degF] Merlin Loredo MD Work Phone: [facility] 07-17-2025 10:40-0400 Body weight 78.02 kg Melrin Loredo MD Work Phone: [facility] 07-17-2025 10:40-0400 Diastolic blood pressure 57 mm[Hg] Merlin Loredo MD Work Phone: [facility] 07-17-2025 10:40-0400 Heart rate 66 /min Merlin Loredo MD Work Phone: [facility] 07-17-2025 10:40-0400 SaO2% (BldA) [Mass fraction] 97 % Merlin Loredo MD Work Phone: [facility] 07-17-2025 10:40-0400 Systolic blood pressure 96 mm[Hg] Merlin Loredo MD Work Phone: [facility] 07-16-2025 14:56-0400 Body temperature 97.7 [degF] Dr. Manuel Beebe MD Work Phone: 9(963)052-956021 [place] [address] 07-16-2025 14:56-0400 Diastolic blood pressure 63 mm[Hg] Dr. Manuel Beebe MD Work Phone: 1(493)881-485421 [place] [address] 07-16-2025 14:56-0400 Heart rate 70 /min Dr. Manuel Beebe MD Work Phone: 3(292)233-391667 [place] [address] 07-16-2025 14:56-0400 Respiratory rate 15 /min Dr. Manuel Beebe MD Work Phone: 7(669)839-919967 [place] [address] 07-16-2025 14:56-0400 SaO2% (BldA) [Mass fraction] 98 % Dr. Manuel Beebe MD Work Phone: 7(052)574-043067 [place] [address] 07-16-2025 14:56-0400 Systolic blood pressure 92 mm[Hg] Dr. Manuel Beebe MD Work Phone: 1(408)169-140867 [place] [address] 06-18-2025 14:05-0400 Body height 175.[address] Manuel Beebe MD Work Phone: 3(442)252-607567 [place] [address] 06-18-2025 14:05-0400 Diastolic blood pressure 75 mm[Hg] Dr. Manuel Beebe MD Work Phone: 0(240)729-973467 [place] [address] 06-18-2025 14:05-0400 Heart rate 68 /min Dr. Manuel Beebe MD Work Phone: 9(349)002-349721 [place] [address] 06-18-2025 14:05-0400 Respiratory rate 16 /min Dr. Manuel Beebe MD Work Phone: 2(406)286-960921 [place] [address] 06-18-2025 14:05-0400 Systolic blood pressure 113 mm[Hg] Dr. Manuel Beebe MD Work Phone: 1(111)969-579421 [place] [address] 05-29-2025 14:05-0400 Body temperature 98.49 [degF] Injection Wstr Work Phone: [facility] 05-29-2025 14:05-0400 Diastolic blood pressure 63 mm[Hg] Injection Wstr Work Phone: [facility] 05-29-2025 14:05-0400 Heart rate 72 /min Injection Wstr Work Phone: [facility] 05-29-2025 14:05-0400 Respiratory rate 12 /min Injection Wstr Work Phone: [facility] 05-29-2025 14:05-0400 SaO2% (BldA) [Mass fraction] 96 % Injection Wstr Work Phone: [facility] 05-29-2025 14:05-0400 Systolic blood pressure 101 mm[Hg] Injection Wstr Work Phone: [facility] 05-16-2025 14:49-0400 Body height 175.3 cm El Arnett MD Work Phone: [facility] 05-16-2025 14:49-0400 Body mass index (BMI) [Ratio] 25.43 kg/m2 El Arnett MD Work Phone: [facility] 05-16-2025 14:49-0400 Body temperature 97.5 [degF] El Arnett MD Work Phone: [facility] 05-16-2025 14:49-0400 Body weight 78.11 kg El Arnett MD Work Phone: [facility] 05-16-2025 14:49-0400 Diastolic blood pressure 64 mm[Hg] El Arnett MD Work Phone: [facility] 05-16-2025 14:49-0400 Heart rate 70 /min El Arnett MD Work Phone: [facility] 05-16-2025 14:49-0400 Systolic blood pressure 113 mm[Hg] El Arnett MD Work Phone: [facility] 03-06-2025 10:22-0400 Body temperature 97.5 [degF] Jonnathan Kothari DO Work Phone: [facility] 03-06-2025 10:22-0400 Diastolic blood pressure 52 mm[Hg] Jonnathan Kothari DO Work Phone: [facility] 03-06-2025 10:22-0400 Heart rate 57 /min Jonnathan Kothari DO Work Phone: [facility] 03-06-2025 10:22-0400 SaO2% (BldA) [Mass fraction] 98 % Jonnathan Kothari DO Work Phone: [facility] 03-06-2025 10:22-0400 Systolic blood pressure 98 mm[Hg] Jonnathan Kothari DO Work Phone: [facility] 02-13-2025 15:04-0400 Body height 175.3 cm Merlin Loredo MD Work Phone: [facility] 02-13-2025 15:04-0400 Body mass index (BMI) [Ratio] 26.29 kg/m2 Merlin Loredo MD Work Phone: [facility] 02-13-2025 15:04-0400 Body temperature 97.59 [degF] Merlin Loredo MD Work Phone: [facility] 02-13-2025 15:04-0400 Body weight 80.74 kg Merlin Loredo MD Work Phone: [facility] 02-13-2025 15:04-0400 Diastolic blood pressure 42 mm[Hg] Merlin Loredo MD Work Phone: [facility] Comment on above: Pt denies h/a, nausea, dizziness. WNL pe r patient. No distress noted. notified. 02-13-2025 15:04-0400 Heart rate 40 /min Merlin Loredo MD Work Phone: [facility] Comment on above: Pt denies h/a, nausea, dizziness. WNL pe r patient. No distress noted. Dr rodriguez. 02-13-2025 15:04-0400 SaO2% (BldA) [Mass fraction] 95 % Merlin Loredo MD Work Phone: [facility] 02-13-2025 15:04-0400 Systolic blood pressure 96 mm[Hg] Merlin Loredo MD Work Phone: [facility] Comment on above: Pt denies h/a, nausea, dizziness. WNL pe r patient. No distress noted. Dr rodriguez. 01-24-2025 08:20-0400 Body temperature 98 [degF] Dr. Manuel Beebe MD Work Phone: 1(597)361-607221 [place] [address] 01-24-2025 08:20-0400 Diastolic blood pressure 68 mm[Hg] Dr. Manuel Beebe MD Work Phone: 6(655)109-527621 [place] [address] 01-24-2025 08:20-0400 Heart rate 70 /min Dr. Manuel Beebe MD Work Phone: 9(928)947-828221 [place] [address] 01-24-2025 08:20-0400 Respiratory rate 15 /min Dr. Manuel Beebe MD Work Phone: 3(538)667-134421 [place] [address] 01-24-2025 08:20-0400 SaO2% (BldA) [Mass fraction] 97 % Dr. Manuel Beebe MD Work Phone: [facility] 01-24-2025 08:20-0400 Systolic blood pressure 110 mm[Hg] Dr. Manuel Beebe MD Work Phone: [facility] 12-12-2024 15:18-0500 Diastolic blood pressure 69 mm[Hg] Injection Wstr Work Phone: [facility] 12-12-2024 15:18-0500 Heart rate 66 /min Injection Wstr Work Phone: [facility] 12-12-2024 15:18-0500 Respiratory rate 12 /min Injection Wstr Work Phone: [facility] 12-12-2024 15:18-0500 SaO2% (BldA) [Mass fraction] 96 % Injection Wstr Work Phone: [facility] 12-12-2024 15:18-0500 Systolic blood pressure 103 mm[Hg] Injection Wstr Work Phone: [facility] 12-12-2024 11:11-0500 Body height 175.[address] Manuel Beebe MD Work Phone: 9(934)484-044567 [place] [address] 12-12-2024 11:11-0500 Body mass index (BMI) [Ratio] 24.5 kg/m2 Dr. Manuel Beebe MD Work Phone: 2(826)054-689967 [place] [address] 12-12-2024 11:11-0500 Body weight 75.[address] Manuel Beebe MD Work Phone: 9(621)352-817267 [place] [address] 12-12-2024 11:11-0500 Diastolic blood pressure 66 mm[Hg] Dr. Manuel Beebe MD Work Phone: 6(065)793-111667 [place] [address] 12-12-2024 11:11-0500 Heart rate 69 /min Dr. Manuel Beebe MD Work Phone: 0(308)722-265567 [place] [address] 12-12-2024 11:11-0500 Respiratory rate 18 /min Dr. Manuel Beebe MD Work Phone: 4(752)232-988267 [place] [address] 12-12-2024 11:11-0500 SaO2% (BldA) [Mass fraction] 98 % Dr. Manuel Beebe MD Work Phone: 7(070)808-304167 [place] [address] 12-12-2024 11:11-0500 Systolic blood pressure 119 mm[Hg] Dr. Manuel Beebe MD Work Phone: 1(771)505-624567 [place] [address] 09-19-2024 15:17-0500 Diastolic blood pressure 58 mm[Hg] Injection Wstr Work Phone: 5(673)759-399232 [place] [address] 09-19-2024 15:17-0500 Heart rate 72 /min Injection [facility]str Work Phone: 1(337)126-174732 [place] [address] 09-19-2024 15:17-0500 Respiratory rate 12 /min Injection [facility]str Work Phone: 7(913)969-692832 [place] [address] 09-19-2024 15:17-0500 SaO2% (BldA) [Mass fraction] 100 % Injection Wstr Work Phone: [facility] 09-19-2024 15:17-0500 Systolic blood pressure 100 mm[Hg] Injection Wstr Work Phone: [facility] 09-05-2024 11:10-0400 Body temperature 97.3 [degF] Lissy Anna Work Phone: [facility] 09-05-2024 11:10-0400 Diastolic blood pressure 67 mm[Hg] Lissy Anna Work Phone: [facility] 09-05-2024 11:10-0400 Heart rate 64 /min Lissy Anna Work Phone: [facility] 09-05-2024 11:10-0400 SaO2% (BldA) [Mass fraction] 96 % Lissy Anna Work Phone: [facility] 09-05-2024 11:10-0400 Systolic blood pressure 91 mm[Hg] Lissy Anna Work Phone: [facility] 08-28-2024 14:43-0400 Body height 175.3 cm Merlin Loredo MD Work Phone: [facility] 08-28-2024 14:43-0400 Body mass index (BMI) [Ratio] 25.4 kg/m2 Merlin Loredo MD Work Phone: [facility] 08-28-2024 14:43-0400 Body temperature 97.7 [degF] Merlin Loredo MD Work Phone: [facility] 08-28-2024 14:43-0400 Body weight 78.02 kg Merlin Loredo MD Work Phone: [facility] 08-28-2024 14:43-0400 Diastolic blood pressure 57 mm[Hg] Merlin Loredo MD Work Phone: [facility] Comment on above: Pt denies h/a, nausea, dizziness. WNL pe r pt. No distress noted. Dr notified. 08-28-2024 14:43-0400 Heart rate 69 /min Merlin Loredo MD Work Phone: [facility] 08-28-2024 14:43-0400 SaO2% (BldA) [Mass fraction] 98 % Merlin Loredo MD Work Phone: [facility] 08-28-2024 14:43-0400 Systolic blood pressure 107 mm[Hg] Merlin Loredo MD Work Phone: [facility] Comment on above: Pt denies h/a, nausea, dizziness. WNL pe r pt. No distress noted. Dr notified. 08-22-2024 11:30-0400 Diastolic blood pressure 68 mm[Hg] Alfred Ramsey MD Work Phone: [facility] 08-22-2024 11:30-0400 Heart rate 66 /min Alfred Ramsey MD Work Phone: [facility] 08-22-2024 11:30-0400 SaO2% (BldA) [Mass fraction] 100 % Alfred Ramsey MD Work Phone: [facility] 08-22-2024 11:30-0400 Systolic blood pressure 128 mm[Hg] Alfred Ramsey MD Work Phone: [facility] 08-22-2024 11:20-0400 Respiratory rate 18 /min Alfred Ramsey MD Work Phone: [facility] 08-22-2024 10:30-0400 Body temperature 97.5 [degF] Alfred Ramsey MD Work Phone: [facility] 08-22-2024 09:54-0400 Body height 175.3 cm Alfred Ramsey MD Work Phone: [facility] 08-22-2024 09:54-0400 Body mass index (BMI) [Ratio] 25.4 kg/m2 Alfred Ramsey MD Work Phone: [facility] 08-22-2024 09:54-0400 Body weight 78.02 kg Alfred Ramsey MD Work Phone: [facility] 06-20-2024 11:02-0400 Diastolic blood pressure 59 mm[Hg] Injection Wstr Work Phone: [facility] 06-20-2024 11:02-0400 Heart rate 70 /min Injection Wstr Work Phone: [facility] 06-20-2024 11:02-0400 Respiratory rate 12 /min Injection Wstr Work Phone: [facility] 06-20-2024 11:02-0400 SaO2% (BldA) [Mass fraction] 99 % Injection Wstr Work Phone: [facility] 06-20-2024 11:02-0400 Systolic blood pressure 90 mm[Hg] Injection Wstr Work Phone: [facility] 06-13-2024 14:18-0400 Body height 177.8 cm Maximo Watkins MD Work Phone: [facility] 06-13-2024 14:18-0400 Body mass index (BMI) [Ratio] 25.11 kg/m2 Maximo Watkins MD Work Phone: [facility] 06-13-2024 14:18-0400 Body weight 79.38 kg Maximo Watkins MD Work Phone: [facility] 2024 09:08-0400 Body temperature 97.3 [degF] Injection Wstr Work Phone: [facility] 2024 09:08-0400 Diastolic blood pressure 75 mm[Hg] Injection Wstr Work Phone: [facility] 2024 09:08-0400 Heart rate 70 /min Injection Wstr Work Phone: [facility] 2024 09:08-0400 SaO2% (BldA) [Mass fraction] 99 % Injection Wstr Work Phone: [facility] 2024 09:08-0400 Systolic blood pressure 114 mm[Hg] Injection Wstr Work Phone: [facility] 05-01-2024 16:08-0400 Body height 175.3 cm Kourtney Bhatia MD Work Phone: [facility] Comment on above: self-reported 05-01-2024 16:08-0400 Body mass index (BMI) [Ratio] 25.84 kg/m2 Kourtney Bhatia MD Work Phone: [facility] 05-01-2024 16:08-0400 Body weight 79.38 kg Kourtney Bhatia MD Work Phone: [facility] Comment on above: self-reported 05-01-2024 16:08-0400 Diastolic blood pressure 62 mm[Hg] Kourtney Bhatia MD Work Phone: [facility] 05-01-2024 16:08-0400 Heart rate 69 /min Kourtney Bhatia MD Work Phone: [facility] 05-01-2024 16:08-0400 Respiratory rate 20 /min Kourtney Bhatia MD Work Phone: [facility] 05-01-2024 16:08-0400 SaO2% (BldA) [Mass fraction] 98 % Kourtney Bhatia MD Work Phone: [facility] 05-01-2024 16:08-0400 Systolic blood pressure 104 mm[Hg] Kourtney Bhatia MD Work Phone: [facility] 03-21-2024 11:24-0400 Body mass index (BMI) [Ratio] 25.84 kg/m2 Jonnathan Kothari DO Work Phone: [facility] 03-21-2024 11:24-0400 Body temperature 97.11 [degF] Jonnathan Kothari DO Work Phone: [facility] 03-21-2024 11:24-0400 Body weight 79.38 kg Jonnathan Kothari DO Work Phone: [facility] 03-21-2024 11:24-0400 Diastolic blood pressure 57 mm[Hg] Jonnathan Kothari DO Work Phone: [facility] 03-21-2024 11:24-0400 Heart rate 65 /min Jonnathan Kothari DO Work Phone: [facility] 03-21-2024 11:24-0400 SaO2% (BldA) [Mass fraction] 96 % Jonnathan Kothari DO Work Phone: [facility] 03-21-2024 11:24-0400 Systolic blood pressure 89 mm[Hg] Jonnathan Kothari DO Work Phone: [facility] 03-14-2024 11:32-0400 Body height 175.3 cm Merlin Loredo MD Work Phone: [facility] 03-14-2024 11:32-0400 Body mass index (BMI) [Ratio] 25.84 kg/m2 Merlin Loredo MD Work Phone: [facility] 03-14-2024 11:32-0400 Body temperature 98.8 [degF] Merlin Loredo MD Work Phone: [facility] 03-14-2024 11:32-0400 Body weight 79.38 kg Merlin Loredo MD Work Phone: [facility] 03-14-2024 11:32-0400 Diastolic blood pressure 53 mm[Hg] Merlin Loredo MD Work Phone: [facility] Comment on above: Pt denies h/a, nausea, dizziness. WNL pe r pt. No distress noted. notified. 03-14-2024 11:32-0400 Heart rate 70 /min Merlin Loredo MD Work Phone: [facility] 03-14-2024 11:32-0400 SaO2% (BldA) [Mass fraction] 100 % Merlin Loredo MD Work Phone: [facility] 03-14-2024 11:32-0400 Systolic blood pressure 93 mm[Hg] Merlin Loredo MD Work Phone: [facility] Comment on above: Pt denies h/a, nausea, dizziness. WNL pe r pt. No distress noted. Dr pretty 12-21-2023 14:52-0500 Body temperature 97.9 [degF] Injection Wstr Work Phone: [facility] 12-21-2023 14:52-0500 Diastolic blood pressure 62 mm[Hg] Injection Wstr Work Phone: [facility] 12-21-2023 14:52-0500 Heart rate 68 /min Injection Wstr Work Phone: [facility] 12-21-2023 14:52-0500 Respiratory rate 12 /min Injection Wstr Work Phone: [facility] 12-21-2023 14:52-0500 SaO2% (BldA) [Mass fraction] 97 % Injection Wstr Work Phone: [facility] 12-21-2023 14:52-0500 Systolic blood pressure 82 mm[Hg] Injection Wstr Work Phone: [facility] 10-13-2023 10:46-0500 Body height 175.[address] Manuel Beebe Work Phone: 2(597)584-407767 [place] [address] 10-13-2023 10:46-0500 Body mass index (BMI) [Ratio] 26.6 kg/m2 Dr. Manuel Beebe Work Phone: 6(992)613-048767 [place] [address] 10-13-2023 10:46-0500 Body temperature 98.4 [degF] Dr. Manuel Beebe Work Phone: 2(075)122-089067 [place] [address] 10-13-2023 10:46-0500 Body weight 81.[address] Manuel Beebe Work Phone: 1(885)608-361067 [place] [address] 10-13-2023 10:46-0500 Diastolic blood pressure 68 mm[Hg] Dr. Manuel Beebe Work Phone: 2(023)120-924267 [place] [address] 10-13-2023 10:46-0500 Heart rate 70 /min Dr. Manuel Beebe Work Phone: 1(473)584-171067 [place] [address] 10-13-2023 10:46-0500 Respiratory rate 17 /min Dr. Manuel Beebe Work Phone: 5(083)935-839567 [place] [address] 10-13-2023 10:46-0500 SaO2% (BldA) [Mass fraction] 96 % Dr. Manuel Beebe Work Phone: 9(751)213-595967 [place] [address] 10-13-2023 10:46-0500 Systolic blood pressure 106 mm[Hg] Dr. Manuel Beebe Work Phone: 3(494)737-279067 [place] [address] 10-06-2023 15:55-0500 Body mass index (BMI) [Ratio] 27.1 kg/m2 Dr. Manuel Beebe Work Phone: 5(152)604-486367 [place] [address] 10-06-2023 15:55-0500 Body weight 83.[address] Manuel Beebe Work Phone: 7(235)299-456567 [place] [address] 10-06-2023 15:55-0500 Diastolic blood pressure 65 mm[Hg] Dr. Manuel Beebe Work Phone: 1(576)628-810967 [place] [address] 10-06-2023 15:55-0500 Heart rate 70 /min Dr. Manuel Beebe Work Phone: 5(741)871-029267 [place] [address] 10-06-2023 15:55-0500 Respiratory rate 16 /min Dr. Manuel Beebe Work Phone: 4(370)618-873867 [place] [address] 10-06-2023 15:55-0500 Systolic blood pressure 102 mm[Hg] Dr. Manuel Beebe Work Phone: 3(344)798-649767 [address] [place] [address] 07-12-2023 14:15-0400 Body height 175.[address] Manuel Beebe Work Phone: 3(817)646-153967 [place] [address] 07-12-2023 14:15-0400 Body mass index (BMI) [Ratio] 25.4 kg/m2 Dr. Manuel Beebe Work Phone: 4(792)892-628167 [place] [address] 07-12-2023 14:15-0400 Body temperature 98.1 [degF] Dr. Manuel Beebe Work Phone: 1(736)042-621667 [place] [address] 07-12-2023 14:15-0400 Body weight 78.[address] Manuel Beebe Work Phone: 4(464)256-902221 [place] [address] 07-12-2023 14:15-0400 Diastolic blood pressure 75 mm[Hg] Dr. Manuel Beebe Work Phone: 6(673)843-257067 [place] [address] 07-12-2023 14:15-0400 Heart rate 67 /min Dr. Manuel Beebe Work Phone: 6(604)887-784167 [place] [address] 07-12-2023 14:15-0400 Respiratory rate 18 /min Dr. Manuel Beebe Work Phone: 7(882)024-112267 [place] [address] 07-12-2023 14:15-0400 SaO2% (BldA) [Mass fraction] 92 % Dr. Manuel Beebe Work Phone: 4(884)660-103967 [place] [address] 07-12-2023 14:15-0400 Systolic blood pressure 112 mm[Hg] Dr. Manuel Beebe Work Phone: 3(056)112-307567 [place] [address] 06-26-2023 08:10-0400 Body temperature 96.8 [degF] Dr. Manuel Beebe Work Phone: 6(313)358-275067 [place] [address] 06-26-2023 08:10-0400 Diastolic blood pressure 81 mm[Hg] Dr. Manuel Beebe Work Phone: 4(554)092-406167 [place] [address] 06-26-2023 08:10-0400 Heart rate 69 /min Dr. Manuel Beebe Work Phone: 1(347)982-169267 [place] [address] 06-26-2023 08:10-0400 Respiratory rate 16 /min Dr. Manuel Beebe Work Phone: 5(370)057-164567 [place] [address] 06-26-2023 08:10-0400 SaO2% (BldA) [Mass fraction] 98 % Dr. Manuel Beebe Work Phone: 4(461)324-648367 [place] [address] 06-26-2023 08:10-0400 Systolic blood pressure 127 mm[Hg] Dr. Manuel Beebe Work Phone: 8(245)647-822067 [place] [address] 06-24-2023 14:17-0400 Body height 175.[address] Manuel Beebe Work Phone: 5(028)764-114767 [place] [address] 06-24-2023 14:17-0400 Body weight [address] Manuel Beebe Work Phone: 3(689)448-434867 [place] [address] 06-22-2023 02:50-0400 Inhaled oxygen flow rate 3 L/min Dr. Manuel Beebe Work Phone: 1(573)068-540467 [place] [address] 06-21-2023 17:53-0400 Body mass index (BMI) [Ratio] 25 kg/m2 Dr. Manuel Beebe Work Phone: 1(253)759-989967 [place] [address] 06-21-2023 17:20-0400 Heart rate 70 /min Dr. Manuel Beebe Work Phone: 1(000)411-707167 [place] [address] 06-21-2023 17:20-0400 Respiratory rate 20 /min Dr. Manuel Beebe Work Phone: 6(126)622-764267 [place] [address] 06-21-2023 17:19-0400 Body temperature 98.4 [degF] Dr. Manuel Beebe Work Phone: 2(719)583-281767 [place] [address] 06-21-2023 17:19-0400 Diastolic blood pressure 64 mm[Hg] Dr. Manuel Beebe Work Phone: 1(130)614-815767 [place] [address] 06-21-2023 17:19-0400 SaO2% (BldA) [Mass fraction] 96 % Dr. Manuel Beebe Work Phone: 2(035)879-704467 [place] [address] 06-21-2023 17:19-0400 Systolic blood pressure 103 mm[Hg] Dr. Manuel Beebe Work Phone: 2(579)632-566167 [place] [address] 06-21-2023 12:22-0400 Body height 175.[address] Manuel Beebe Work Phone: 0(563)568-150467 [place] [address] 06-21-2023 12:22-0400 Body mass index (BMI) [Ratio] 26.3 kg/m2 Dr. Manuel Beebe Work Phone: 0(529)034-020667 [place] [address] 06-21-2023 12:22-0400 Body weight 80.[address] Manuel Beebe Work Phone: 6(438)577-719967 [place] [address] 2023 14:25-0400 Body mass index (BMI) [Ratio] 26.4 kg/m2 Dr. Manuel Beebe Work Phone: 0(691)972-417367 [place] [address] 2023 14:25-0400 Body weight 81.[address] Manuel Beebe Work Phone: 1(876)931-806267 [place] [address] 2023 14:25-0400 Diastolic blood pressure 62 mm[Hg] Dr. Manuel Beebe Work Phone: 3(920)541-861467 [place] [address] 2023 14:25-0400 Heart rate 96 /min Dr. Manuel Beebe Work Phone: 2(267)612-316067 [place] [address] 2023 14:25-0400 Respiratory rate 18 /min Dr. Manuel Beebe Work Phone: 4(694)438-105967 [place] [address] 2023 14:25-0400 Systolic blood pressure 103 mm[Hg] Dr. Manuel Beebe Work Phone: 4(104)612-066767 [place] [address] 04-25-2023 12:31-0400 Body temperature 97.7 [degF] Dr. Manuel Beebe Work Phone: 2(671)789-270267 [place] [address] 04-25-2023 12:31-0400 Diastolic blood pressure 82 mm[Hg] Dr. Manuel Beebe Work Phone: 5(760)154-906667 [place] [address] 04-25-2023 12:31-0400 Heart rate 70 /min Dr. Manuel Beebe Work Phone: 9(081)883-292067 [place] [address] 04-25-2023 12:31-0400 Respiratory rate 18 /min Dr. Manuel Beebe Work Phone: 5(713)152-807767 [place] [address] 04-25-2023 12:31-0400 SaO2% (BldA) [Mass fraction] 95 % Dr. Manuel Beebe Work Phone: 0(660)948-543067 [place] [address] 04-25-2023 12:31-0400 Systolic blood pressure 135 mm[Hg] Dr. Manuel Beebe Work Phone: 7(783)259-354467 [place] [address] 04-24-2023 12:48-0400 Body height 175.[address] Manuel Beebe Work Phone: 9(848)317-055267 [place] [address] 04-24-2023 12:48-0400 Body weight 87.[address] Manuel Beebe Work Phone: 5(944)413-341167 [place] [address] 04-24-2023 09:00-0400 Inhaled oxygen flow rate 2 L/min Dr. Manuel Beebe Work Phone: 0(151)514-520867 [place] [address] 04-23-2023 15:00-0400 Body mass index (BMI) [Ratio] 28.3 kg/m2 Dr. Manuel Beebe Work Phone: 5(470)165-096767 [place] [address] 04-23-2023 14:15-0400 Body temperature 98.4 [degF] Dr. Manuel Beebe Work Phone: 3(384)488-988467 [place] [address] 04-23-2023 14:15-0400 Diastolic blood pressure 75 mm[Hg] Dr. Manuel Beebe Work Phone: 2(880)482-261667 [place] [address] 04-23-2023 14:15-0400 Heart rate 82 /min Dr. Manuel Beebe Work Phone: 3(927)920-797467 [place] [address] 04-23-2023 14:15-0400 Inhaled oxygen flow rate 2 L/min Dr. Manuel Beebe Work Phone: 2(855)756-520067 [place] [address] 04-23-2023 14:15-0400 Respiratory rate 20 /min Dr. Manuel Beebe Work Phone: 1(936)723-308967 [place] [address] 04-23-2023 14:15-0400 SaO2% (BldA) [Mass fraction] 100 % Dr. Manuel Beebe Work Phone: 1(009)440-368967 [place] [address] 04-23-2023 14:15-0400 Systolic blood pressure 146 mm[Hg] Dr. Manuel Beebe Work Phone: 2(731)459-917867 [place] [address] 04-23-2023 10:09-0400 Body height 175.[address] Manuel Beebe Work Phone: 2(458)346-645767 [place] [address] 04-23-2023 10:09-0400 Body mass index (BMI) [Ratio] 25.4 kg/m2 Dr. Manuel Beebe Work Phone: 0(346)056-071867 [place] [address] 04-23-2023 10:09-0400 Body weight [address] Manuel Beeeb Work Phone: 6(488)622-450067 [place] [address] 04-16-2023 13:46-0400 Body temperature 97.8 [degF] Dr. Manuel Beebe Work Phone: 5(107)021-247867 [place] [address] 04-16-2023 13:46-0400 Diastolic blood pressure 73 mm[Hg] Dr. Manuel Beebe Work Phone: 1(575)791-623767 [place] [address] 04-16-2023 13:46-0400 Heart rate 70 /min Dr. Manuel Beebe Work Phone: 3(051)240-910967 [place] [address] 04-16-2023 13:46-0400 Respiratory rate 18 /min Dr. Manuel Beebe Work Phone: 8(228)176-255667 [place] [address] 04-16-2023 13:46-0400 SaO2% (BldA) [Mass fraction] 100 % Dr. Manuel Beebe Work Phone: 8(394)583-883067 [place] [address] 04-16-2023 13:46-0400 Systolic blood pressure 122 mm[Hg] Dr. Manuel Beebe Work Phone: 9(328)830-455867 [place] [address] 04-16-2023 02:11-0400 Body mass index (BMI) [Ratio] 27.9 kg/m2 Dr. Manuel Beebe Work Phone: 3(628)097-869367 [place] [address] 04-16-2023 02:11-0400 Body weight 85.[address] Manuel Beebe Work Phone: 6(293)042-372467 [place] [address] 04-13-2023 18:13-0400 Body temperature 96.8 [degF] Dr. Manuel Beebe Work Phone: [facility] 04-13-2023 18:13-0400 Diastolic blood pressure 93 mm[Hg] Dr. Manuel Beebe Work Phone: [facility] 04-13-2023 18:13-0400 Heart rate 73 /min Dr. Manuel Beebe Work Phone: 2(759)507-615721 [place] [address] 04-13-2023 18:13-0400 Respiratory rate 16 /min Dr. Manuel Beebe Work Phone: [facility] 04-13-2023 18:13-0400 SaO2% (BldA) [Mass fraction] 98 % Dr. Manuel Beebe Work Phone: 5(384)444-117721 [place] [address] 04-13-2023 18:13-0400 Systolic blood pressure 124 mm[Hg] Dr. Manuel Beebe Work Phone: 3(384)921-357621 [place] [address] 04-13-2023 14:09-0400 Body height 175.[address] Manuel Beebe Work Phone: 8(657)195-290667 [place] [address] 04-13-2023 14:09-0400 Body mass index (BMI) [Ratio] 27.2 kg/m2 Dr. Manuel Beebe Work Phone: [facility] 04-13-2023 14:09-0400 Body weight 83.[address] Manuel Beebe Work Phone: [facility] 04-12-2023 14:21-0400 Diastolic blood pressure 57 mm[Hg] Olga Cavazos IRONING WORKER.LIFE ENRICHMENT DIRECTOR Work Phone: [facility] 04-12-2023 14:21-0400 Systolic blood pressure 83 mm[Hg] Olga Cavazos IRONING WORKER.LIFE ENRICHMENT DIRECTOR Work Phone: [facility] 04-12-2023 14:10-0400 Body weight 73.48 kg Olga Cavazos IRONING WORKER.LIFE ENRICHMENT DIRECTOR Work Phone: [facility] 04-12-2023 14:10-0400 Heart rate 70 /min Olga Cavazos IRONING WORKER.LIFE ENRICHMENT DIRECTOR Work Phone: [facility] 04-12-2023 14:10-0400 Respiratory rate 14 /min Olga Cavazos IRONING WORKER.LIFE ENRICHMENT DIRECTOR Work Phone: [facility] 04-12-2023 14:10-0400 SaO2% (BldA) [Mass fraction] 99 % Olga Jensen IRONING WORKER.LIFE ENRICHMENT DIRECTOR Work Phone: [facility] 04-12-2023 07:31-0400 Body temperature 97.8 [degF] Dr. Manuel Beebe Work Phone: [facility] 04-12-2023 07:31-0400 Diastolic blood pressure 92 mm[Hg] Dr. Manuel Beebe Work Phone: [facility] 04-12-2023 07:31-0400 Heart rate 70 /min Dr. Manuel Beebe Work Phone: [facility] 04-12-2023 07:31-0400 Respiratory rate 16 /min Dr. Manuel Beebe Work Phone: [facility] 04-12-2023 07:31-0400 SaO2% (BldA) [Mass fraction] 100 % Dr. Manuel Beebe Work Phone: [facility] 04-12-2023 07:31-0400 Systolic blood pressure 126 mm[Hg] Dr. Manuel Beebe Work Phone: [facility] 04-12-2023 04:26-0400 Body mass index (BMI) [Ratio] 26.2 kg/m2 Dr. Manuel Beebe Work Phone: [facility] 04-12-2023 04:26-0400 Body weight 80.[address] Manuel Beebe Work Phone: [facility] 04-10-2023 18:32-0400 Body height 175.[address] Manuel Beebe Work Phone: [facility] 04-10-2023 16:35-0400 Body temperature 97.6 [degF] Dr. Manuel Beebe Work Phone: [facility] 04-10-2023 16:35-0400 Diastolic blood pressure 75 mm[Hg] Dr. Manuel Beebe Work Phone: [facility] 04-10-2023 16:35-0400 Heart rate 76 /min Dr. Manuel Beebe Work Phone: [facility] 04-10-2023 16:35-0400 Respiratory rate 24 /min Dr. Manuel Beebe Work Phone: [facility] 04-10-2023 16:35-0400 SaO2% (BldA) [Mass fraction] 98 % Dr. Manuel Beebe Work Phone: [facility] 04-10-2023 16:35-0400 Systolic blood pressure 136 mm[Hg] Dr. Manuel Beebe Work Phone: [facility] 04-10-2023 12:46-0400 Body height 175.[address] Manuel Beebe Work Phone: [facility] 04-10-2023 12:46-0400 Body mass index (BMI) [Ratio] 28.6 kg/m2 Dr. Manuel Beebe Work Phone: [facility] 04-10-2023 12:46-0400 Body weight 87.[address] Manuel Beebe Work Phone: [facility] 03-23-2023 08:11-0400 Body temperature 97.7 [degF] Manuel Beebe MD Work Phone: [facility] 03-23-2023 08:11-0400 Body weight 78.47 kg Manuel Beebe MD Work Phone: [facility] 03-23-2023 08:11-0400 Diastolic blood pressure 72 mm[Hg] Manuel Beebe MD Work Phone: [facility] 03-23-2023 08:11-0400 Heart rate 65 /min Manuel Beebe MD Work Phone: [facility] 03-23-2023 08:11-0400 Respiratory rate 18 /min Manuel Beebe MD Work Phone: [facility] 03-23-2023 08:11-0400 SaO2% (BldA) [Mass fraction] 97 % Manuel Beebe MD Work Phone: [facility] 03-23-2023 08:11-0400 Systolic blood pressure 118 mm[Hg] Manuel Beebe MD Work Phone: [facility] 03-09-2023 11:48-0400 Body height 177.8 cm Merlin Loredo MD Work Phone: [facility] 03-09-2023 11:48-0400 Body temperature 97 [degF] Merlin Loredo MD Work Phone: [facility] 03-09-2023 11:48-0400 Body weight 78.02 kg Merlin Loredo MD Work Phone: [facility] 03-09-2023 11:48-0400 Diastolic blood pressure 48 mm[Hg] Merlin Loredo MD Work Phone: [facility] 03-09-2023 11:48-0400 Heart rate 70 /min Merlin Loredo MD Work Phone: [facility] 03-09-2023 11:48-0400 SaO2% (BldA) [Mass fraction] 98 % Merlin Loredo MD Work Phone: [facility] 03-09-2023 11:48-0400 Systolic blood pressure 119 mm[Hg] Merlin Loredo MD Work Phone: [facility] 01-06-2023 13:45-0500 Body height 175.[address] Manuel Beebe Work Phone: [facility] 01-06-2023 13:45-0500 Body mass index (BMI) [Ratio] 25.2 kg/m2 Dr. Manuel Beebe Work Phone: [facility] 01-06-2023 13:45-0500 Body temperature 97.1 [degF] Dr. Manuel Beebe Work Phone: 9(568)660-374167 [place] [address] 01-06-2023 13:45-0500 Body weight 77.[address] Mnauel Beebe Work Phone: 4(059)390-270567 [place] [address] 01-06-2023 13:45-0500 Diastolic blood pressure 70 mm[Hg] Dr. Manuel Beebe Work Phone: 0(597)413-424467 [place] [address] 01-06-2023 13:45-0500 Heart rate 70 /min Dr. Manuel Beebe Work Phone: 9(522)823-687267 [place] [address] 01-06-2023 13:45-0500 Respiratory rate 16 /min Dr. Manuel Beebe Work Phone: 8(878)146-505867 [place] [address] 01-06-2023 13:45-0500 SaO2% (BldA) [Mass fraction] 93 % Dr. Manuel Beebe Work Phone: 6(246)141-516267 [place] [address] 01-06-2023 13:45-0500 Systolic blood pressure 105 mm[Hg] Dr. Manuel Beebe Work Phone: 1(082)124-114567 [place] [address] 12-23-2022 14:17-0500 Body mass index (BMI) [Ratio] 25.5 kg/m2 Dr. Manuel Beebe Work Phone: 3(778)496-017367 [place] [address] 12-23-2022 14:17-0500 Body temperature 97.8 [degF] Dr. Manuel Beebe Work Phone: 0(678)695-265067 [place] [address] 12-23-2022 14:17-0500 Body weight 78.[address] Manuel Beebe Work Phone: 7(522)407-941567 [place] [address] 12-23-2022 14:17-0500 Diastolic blood pressure 60 mm[Hg] Dr. Manuel Beebe Work Phone: 3(054)248-291667 [place] [address] 12-23-2022 14:17-0500 Heart rate 71 /min Dr. Manuel Beebe Work Phone: 7(188)009-178867 [place] [address] 12-23-2022 14:17-0500 Respiratory rate 16 /min Dr. Manuel Beebe Work Phone: 4(042)962-715767 [place] [address] 12-23-2022 14:17-0500 SaO2% (BldA) [Mass fraction] 97 % Dr. Manuel Beebe Work Phone: 4(878)607-560767 [place] [address] 12-23-2022 14:17-0500 Systolic blood pressure 96 mm[Hg] Dr. Manuel Beebe Work Phone: 5(336)728-143467 [place] [address] 09-09-2022 11:09-0400 Body height 175.[address] Manuel Beebe Work Phone: 6(654)363-537467 [place] [address] 09-09-2022 11:09-0400 Body mass index (BMI) [Ratio] 25.7 kg/m2 Dr. Manuel Beebe Work Phone: 0(172)866-143067 [place] [address] 09-09-2022 11:09-0400 Body weight 78.[address] Manuel Beebe Work Phone: 6(173)190-707067 [place] [address] 09-09-2022 11:09-0400 Diastolic blood pressure 68 mm[Hg] Dr. Manuel Beebe Work Phone: 4(525)342-727867 [place] [address] 09-09-2022 11:09-0400 Heart rate 70 /min Dr. Manuel Beebe Work Phone: 4(711)525-228267 [place] [address] 09-09-2022 11:09-0400 Respiratory rate 18 /min Dr. Manuel Beebe Work Phone: 1(999)115-342967 [place] [address] 09-09-2022 11:09-0400 SaO2% (BldA) [Mass fraction] 98 % Dr. Manuel Beebe Work Phone: 9(381)765-444667 [place] [address] 09-09-2022 11:09-0400 Systolic blood pressure 106 mm[Hg] Dr. Manuel Beebe Work Phone: 5(827)533-766367 [place] [address] 09-02-2022 11:18-0400 Body height 175.3 cm Merlin Loredo MD Work Phone: [facility] 09-02-2022 11:18-0400 Body temperature 97.7 [degF] Merlin Loredo MD Work Phone: [facility] 09-02-2022 11:18-0400 Body weight 77.56 kg Merlin Loredo MD Work Phone: [facility] 09-02-2022 11:18-0400 Diastolic blood pressure 73 mm[Hg] Merlin Loredo MD Work Phone: [facility] 09-02-2022 11:18-0400 Heart rate 70 /min Merlin Loredo MD Work Phone: [facility] 09-02-2022 11:18-0400 SaO2% (BldA) [Mass fraction] 99 % Merlin Loredo MD Work Phone: [facility] 09-02-2022 11:18-0400 Systolic blood pressure 116 mm[Hg] Merlin Loredo MD Work Phone: [facility] 08-09-2022 14:56-0400 Body height 175.[address] Manuel Beebe Work Phone: [facility] Work Phone: 08-09-2022 14:56-0400 Body temperature 98 [degF] Dr. Manuel Beebe Work Phone: [facility] 08-09-2022 14:56-0400 Diastolic blood pressure 54 mm[Hg] Dr. Manuel Beebe Work Phone: [facility] 08-09-2022 14:56-0400 Heart rate 70 /min Dr. Manuel Beebe Work Phone: [facility] 08-09-2022 14:56-0400 Respiratory rate 16 /min Dr. Manuel Beebe Work Phone: [facility] 08-09-2022 14:56-0400 SaO2% (BldA) [Mass fraction] 98 % Dr. Manuel Beebe Work Phone: [facility] 08-09-2022 14:56-0400 Systolic blood pressure 128 mm[Hg] Dr. Manuel Beebe Work Phone: [facility] 07-21-2022 13:33-0400 Body height 175.[address] Manuel Beebe Work Phone: [facility] Work Phone: 07-21-2022 13:33-0400 Body mass index (BMI) [Ratio] 25.7 kg/m2 Dr. Manuel Beebe Work Phone: [facility] Work Phone: 07-21-2022 13:33-0400 Body temperature 97.3 [degF] Dr. Manuel Beebe Work Phone: [facility] Work Phone: 07-21-2022 13:33-0400 Body weight 78.[address] Manuel Beebe Work Phone: [facility] Work Phone: 07-21-2022 13:33-0400 Diastolic blood pressure 63 mm[Hg] Dr. Manuel Beebe Work Phone: [facility] Work Phone: 07-21-2022 13:33-0400 Heart rate 70 /min Dr. Manuel Beebe Work Phone: [facility] Work Phone: 07-21-2022 13:33-0400 Respiratory rate 16 /min Dr. Manuel Beebe Work Phone: [facility] Work Phone: 07-21-2022 13:33-0400 SaO2% (BldA) [Mass fraction] 98 % Dr. Manuel Beebe Work Phone: [facility] Work Phone: 07-21-2022 13:33-0400 Systolic blood pressure 93 mm[Hg] Dr. Manuel Beebe Work Phone: [facility] Work Phone: 06-15-2022 16:04-0400 Body height 175.3 cm Munira Dickerson MD Work Phone: [facility] 06-15-2022 16:04-0400 Body mass index (BMI) [Ratio] 25.84 kg/m2 Munira Dickerson MD Work Phone: [facility] 06-15-2022 16:04-0400 Body weight 79.38 kg Munira Dickerson MD Work Phone: [facility] 06-07-2022 18:45-0400 Diastolic blood pressure 65 mm[Hg] Dr. Manuel Beebe Work Phone: [facility] Work Phone: 06-07-2022 18:45-0400 Heart rate 70 /min Dr. Manuel Beebe Work Phone: [facility] Work Phone: 06-07-2022 18:45-0400 Respiratory rate 15 /min Dr. Manuel Beebe Work Phone: [facility] Work Phone: 06-07-2022 18:45-0400 SaO2% (BldA) [Mass fraction] 100 % Dr. Manuel Beebe Work Phone: [facility] Work Phone: 06-07-2022 18:45-0400 Systolic blood pressure 111 mm[Hg] Dr. Manuel Beebe Work Phone: [facility] Work Phone: 06-07-2022 13:38-0400 Body height 175.[address] Manuel Beebe Work Phone: [facility] Work Phone: 06-07-2022 13:38-0400 Body mass index (BMI) [Ratio] 26.6 kg/m2 Dr. Manuel Beebe Work Phone: [facility] Work Phone: 06-07-2022 13:38-0400 Body temperature 98.5 [degF] Dr. Manuel Beebe Work Phone: [facility] Work Phone: 06-07-2022 13:38-0400 Body weight 81.[address] Manuel Beebe Work Phone: [facility] Work Phone: 05-24-2022 14:11-0400 Body height 175.[address] Manuel Beebe Work Phone: [facility] Work Phone: 05-24-2022 14:11-0400 Body temperature 97.8 [degF] Dr. Manuel Beebe Work Phone: [facility] Work Phone: 05-24-2022 14:11-0400 Diastolic blood pressure 82 mm[Hg] Dr. Manuel Beebe Work Phone: [facility] Work Phone: 05-24-2022 14:11-0400 Heart rate 70 /min Dr. Manuel Beebe Work Phone: [facility] Work Phone: 05-24-2022 14:11-0400 Respiratory rate 16 /min Dr. Manuel Beebe Work Phone: [facility] Work Phone: 05-24-2022 14:11-0400 SaO2% (BldA) [Mass fraction] 98 % Dr. Manuel Beebe Work Phone: [facility] Work Phone: 05-24-2022 14:11-0400 Systolic blood pressure 117 mm[Hg] Dr. Manuel Beebe Work Phone: [facility] Work Phone: 04-30-2022 05:11-0400 Diastolic blood pressure 70 mm[Hg] Dr. aMnuel Beebe Work Phone: [facility] Work Phone: 04-30-2022 05:11-0400 Heart rate 72 /min Dr. Manuel Beebe Work Phone: [facility] Work Phone: 04-30-2022 05:11-0400 Respiratory rate 22 /min Dr. Manuel Beebe Work Phone: [facility] Work Phone: 04-30-2022 05:11-0400 SaO2% (BldA) [Mass fraction] 100 % Dr. Manuel Beebe Work Phone: [facility] Work Phone: 04-30-2022 05:11-0400 Systolic blood pressure 136 mm[Hg] Dr. Manuel Beebe Work Phone: [facility] Work Phone: 04-30-2022 02:21-0400 Body height 175.[address] Manuel Beebe Work Phone: [facility] Work Phone: 04-30-2022 02:21-0400 Body mass index (BMI) [Ratio] 27.7 kg/m2 Dr. Manuel Beebe Work Phone: [facility] Work Phone: 04-30-2022 02:21-0400 Body temperature 97.6 [degF] Dr. Manuel Beebe Work Phone: [facility] Work Phone: 04-30-2022 02:21-0400 Body weight 85.[address] Manuel Beebe Work Phone: [facility] Work Phone: 04-27-2022 12:13-0400 Heart rate 72 /min Dr. Manuel Beebe Work Phone: [facility] Work Phone: 04-27-2022 11:20-0400 Body temperature 97.6 [degF] Dr. Manuel Beebe Work Phone: [facility] Work Phone: 04-27-2022 11:20-0400 Diastolic blood pressure 98 mm[Hg] Dr. Manuel Beebe Work Phone: [facility] Work Phone: 04-27-2022 11:20-0400 Respiratory rate 16 /min Dr. Manuel Beebe Work Phone: [facility] Work Phone: 04-27-2022 11:20-0400 SaO2% (BldA) [Mass fraction] 99 % Dr. Manuel Beebe Work Phone: [facility] Work Phone: 04-27-2022 11:20-0400 Systolic blood pressure 132 mm[Hg] Dr. Manuel Beebe Work Phone: [facility] Work Phone: 04-27-2022 07:43-0400 Inhaled oxygen flow rate 1 L/min Dr. Manuel Beebe Work Phone: [facility] Work Phone: 04-27-2022 06:00-0400 Body weight 82.[address] Manuel Beebe Work Phone: [facility] Work Phone: 04-25-2022 20:30-0400 Body height 175.[address] Manuel Beebe Work Phone: [facility] Work Phone: 04-25-2022 20:30-0400 Body mass index (BMI) [Ratio] 27.2 kg/m2 Dr. Manuel Beebe Work Phone: [facility] Work Phone: 04-14-2022 09:10-0400 Body temperature 97.1 [degF] Dr. Manuel Beebe Work Phone: [facility] Work Phone: 04-14-2022 09:10-0400 Diastolic blood pressure 74 mm[Hg] Dr. Manuel Beebe Work Phone: [facility] Work Phone: 04-14-2022 09:10-0400 Heart rate 70 /min Dr. Manuel Beebe Work Phone: [facility] Work Phone: 04-14-2022 09:10-0400 Respiratory rate 18 /min Dr. Manuel Beebe Work Phone: [facility] Work Phone: 04-14-2022 09:10-0400 SaO2% (BldA) [Mass fraction] 97 % Dr. Manuel Beebe Work Phone: [facility] Work Phone: 04-14-2022 09:10-0400 Systolic blood pressure 129 mm[Hg] Dr. Manuel Beebe Work Phone: [facility] Work Phone: 04-13-2022 14:11-0400 Body weight 83.[address] Manuel Beebe Work Phone: [facility] Work Phone: 04-13-2022 13:35-0400 Inhaled oxygen flow rate 3 L/min Dr. Manuel Beebe Work Phone: [facility] Work Phone: 04-13-2022 13:08-0400 Body temperature 98.4 [degF] Dr. Manuel Beebe Work Phone: [facility] Work Phone: 04-13-2022 13:08-0400 Body weight 83.[address] Manuel Beebe Work Phone: [facility] Work Phone: 04-13-2022 13:08-0400 Diastolic blood pressure 79 mm[Hg] Dr. Manuel Bebee Work Phone: [facility] Work Phone: 04-13-2022 13:08-0400 Heart rate 70 /min Dr. Manuel Beebe Work Phone: [facility] Work Phone: 04-13-2022 13:08-0400 Respiratory rate 18 /min Dr. Manuel Beebe Work Phone: [facility] Work Phone: 04-13-2022 13:08-0400 SaO2% (BldA) [Mass fraction] 99 % Dr. Manuel Beebe Work Phone: [facility] Work Phone: 04-13-2022 13:08-0400 Systolic blood pressure 117 mm[Hg] Dr. Manuel Beebe Work Phone: [facility] Work Phone: 04-13-2022 13:08-0400 Body temperature 98.4 [degF] Dr. Manuel Beebe Work Phone: [facility] Work Phone: 04-13-2022 13:08-0400 Body weight 83.[address] Manuel Beebe Work Phone: [facility] Work Phone: 04-13-2022 13:08-0400 Diastolic blood pressure 79 mm[Hg] Dr. Manuel Beebe Work Phone: [facility] Work Phone: 04-13-2022 13:08-0400 Heart rate 70 /min Dr. Manuel Beebe Work Phone: [facility] Work Phone: 04-13-2022 13:08-0400 Respiratory rate 18 /min Dr. Manuel Beebe Work Phone: [facility] Work Phone: 04-13-2022 13:08-0400 SaO2% (BldA) [Mass fraction] 99 % Dr. Manuel Beebe Work Phone: [facility] Work Phone: 04-13-2022 13:08-0400 Systolic blood pressure 117 mm[Hg] Dr. Manuel Beebe Work Phone: [facility] Work Phone: 04-12-2022 11:12-0400 Body temperature 96.6 [degF] Dr. Manuel Beebe Work Phone: [facility] Work Phone: 04-12-2022 11:12-0400 Heart rate 70 /min Dr. Manuel Beebe Work Phone: [facility] Work Phone: 04-12-2022 11:12-0400 Respiratory rate 20 /min Dr. Manuel Beebe Work Phone: [facility] Work Phone: 04-12-2022 11:12-0400 SaO2% (BldA) [Mass fraction] 97 % Dr. Manuel Beebe Work Phone: [facility] Work Phone: 04-12-2022 10:46-0400 Diastolic blood pressure 87 mm[Hg] Dr. Manuel Beebe Work Phone: [facility] Work Phone: 04-12-2022 10:46-0400 Systolic blood pressure 122 mm[Hg] Dr. Manuel Beebe Work Phone: [facility] Work Phone: 04-07-2022 13:40-0400 Body height 175.[address] Manuel Beebe Work Phone: [facility] Work Phone: 04-07-2022 13:40-0400 Body weight 81.[address] Manuel Beebe Work Phone: [facility] Work Phone: 03-31-2022 12:40-0400 Body temperature 97.2 [degF] Dr. Manuel Beebe Work Phone: [facility] Work Phone: 03-31-2022 12:40-0400 Diastolic blood pressure 82 mm[Hg] Dr. Manuel Beebe Work Phone: [facility] Work Phone: 03-31-2022 12:40-0400 Heart rate 79 /min Dr. Manuel Beebe Work Phone: [facility] Work Phone: 03-31-2022 12:40-0400 Respiratory rate 18 /min Dr. Manuel Beebe Work Phone: [facility] Work Phone: 03-31-2022 12:40-0400 SaO2% (BldA) [Mass fraction] 98 % Dr. Manuel Beebe Work Phone: [facility] Work Phone: 03-31-2022 12:40-0400 Systolic blood pressure 122 mm[Hg] Dr. Manuel Beebe Work Phone: [facility] Work Phone: 03-31-2022 08:37-0400 Body mass index (BMI) [Ratio] 25.7 kg/m2 Dr. Manuel Beebe Work Phone: [facility] Work Phone: 03-31-2022 08:37-0400 Body weight 78.[address] Manuel Beebe Work Phone: [facility] Work Phone: 03-23-2022 14:02-0400 Body height 175.3 cm Munira Dickerson MD Work Phone: [facility] 03-23-2022 14:02-0400 Body mass index (BMI) [Ratio] 24.22 kg/m2 Munira Dickerson MD Work Phone: [facility] 03-23-2022 14:02-0400 Body weight 74.39 kg Munira Dickerson MD Work Phone: [facility] 03-17-2022 11:19-0400 Body mass index (BMI) [Ratio] 24.8 kg/m2 Dr. Manuel Beebe Work Phone: [facility] Work Phone: 03-17-2022 11:19-0400 Body temperature 98.2 [degF] Dr. Manuel Beebe Work Phone: [facility] Work Phone: 03-17-2022 11:19-0400 Body weight 76.[address] Manuel Beebe Work Phone: [facility] Work Phone: 03-17-2022 11:19-0400 Diastolic blood pressure 59 mm[Hg] Dr. Manuel Beebe Work Phone: [facility] Work Phone: 03-17-2022 11:19-0400 Heart rate 70 /min Dr. Manuel Beebe Work Phone: [facility] Work Phone: 03-17-2022 11:19-0400 Respiratory rate 16 /min Dr. Manuel Beebe Work Phone: [facility] Work Phone: 03-17-2022 11:19-0400 SaO2% (BldA) [Mass fraction] 99 % Dr. Manuel Beebe Work Phone: [facility] Work Phone: 03-17-2022 11:19-0400 Systolic blood pressure 88 mm[Hg] Dr. Manuel Beebe Work Phone: [facility] Work Phone: 03-17-2022 11:19-0400 Body mass index (BMI) [Ratio] 24.8 kg/m2 Dr. Manuel Beebe Work Phone: [facility] Work Phone: 03-17-2022 11:19-0400 Body temperature 98.2 [degF] Dr. Manuel Beebe Work Phone: [facility] Work Phone: 03-17-2022 11:19-0400 Body weight 76.[address] Manuel Beebe Work Phone: [facility] Work Phone: 03-17-2022 11:19-0400 Diastolic blood pressure 59 mm[Hg] Dr. Manuel Beebe Work Phone: [facility] Work Phone: 03-17-2022 11:19-0400 Heart rate 70 /min Dr. Manuel Beebe Work Phone: [facility] Work Phone: 03-17-2022 11:19-0400 Respiratory rate 16 /min Dr. Manuel Beebe Work Phone: [facility] Work Phone: 03-17-2022 11:19-0400 SaO2% (BldA) [Mass fraction] 99 % Dr. Manuel Beebe Work Phone: [facility] Work Phone: 03-17-2022 11:19-0400 Systolic blood pressure 88 mm[Hg] Dr. Manuel Beebe Work Phone: [facility] Work Phone: 03-10-2022 11:12-0400 Body mass index (BMI) [Ratio] 24.6 kg/m2 Dr. Manuel Beebe Work Phone: [facility] Work Phone: 03-10-2022 11:12-0400 Body temperature 96.8 [degF] Dr. Manuel Beebe Work Phone: [facility] Work Phone: 03-10-2022 11:12-0400 Body weight 75.[address] Manuel Beebe Work Phone: [facility] Work Phone: 03-10-2022 11:12-0400 Diastolic blood pressure 53 mm[Hg] Dr. Manuel Beebe Work Phone: [facility] Work Phone: 03-10-2022 11:12-0400 Heart rate 70 /min Dr. Manuel Beebe Work Phone: [facility] Work Phone: 03-10-2022 11:12-0400 Respiratory rate 14 /min Dr. Manuel Beebe Work Phone: [facility] Work Phone: 03-10-2022 11:12-0400 SaO2% (BldA) [Mass fraction] 100 % Dr. Manuel Beebe Work Phone: [facility] Work Phone: 03-10-2022 11:12-0400 Systolic blood pressure 72 mm[Hg] Dr. Manuel Beebe Work Phone: [facility] Work Phone: 03-10-2022 11:12-0400 Body mass index (BMI) [Ratio] 24.6 kg/m2 Dr. Manuel Beebe Work Phone: [facility] Work Phone: 03-10-2022 11:12-0400 Body temperature 96.8 [degF] Dr. Manuel Beebe Work Phone: [facility] Work Phone: 03-10-2022 11:12-0400 Body weight 75.[address] Manuel Beebe Work Phone: [facility] Work Phone: 03-10-2022 11:12-0400 Diastolic blood pressure 53 mm[Hg] Dr. Manuel Beebe Work Phone: [facility] Work Phone: 03-10-2022 11:12-0400 Heart rate 70 /min Dr. Manuel Beebe Work Phone: [facility] Work Phone: 03-10-2022 11:12-0400 Respiratory rate 14 /min Dr. Manuel Beebe Work Phone: [facility] Work Phone: 03-10-2022 11:12-0400 SaO2% (BldA) [Mass fraction] 100 % Dr. Manuel Beebe Work Phone: [facility] Work Phone: 03-10-2022 11:12-0400 Systolic blood pressure 72 mm[Hg] Dr. Manuel Beebe Work Phone: [facility] Work Phone: 03-03-2022 11:06-0400 Body temperature 98.2 [degF] Dr. Manuel Beebe Work Phone: [facility] Work Phone: 03-03-2022 11:06-0400 Diastolic blood pressure 61 mm[Hg] Dr. Manuel Beebe Work Phone: [facility] Work Phone: 03-03-2022 11:06-0400 Heart rate 69 /min Dr. Manuel Beebe Work Phone: [facility] Work Phone: 03-03-2022 11:06-0400 Respiratory rate 14 /min Dr. Manuel Beebe Work Phone: [facility] Work Phone: 03-03-2022 11:06-0400 SaO2% (BldA) [Mass fraction] 100 % Dr. Manuel Beebe Work Phone: [facility] Work Phone: 03-03-2022 11:06-0400 Systolic blood pressure 95 mm[Hg] Dr. Manuel Beebe Work Phone: [facility] Work Phone: 03-03-2022 11:06-0400 Body temperature 98.2 [degF] Dr. Manuel Beebe Work Phone: [facility] Work Phone: 03-03-2022 11:06-0400 Diastolic blood pressure 61 mm[Hg] Dr. Manuel Beebe Work Phone: [facility] Work Phone: 03-03-2022 11:06-0400 Heart rate 69 /min Dr. Manuel Beebe Work Phone: [facility] Work Phone: 03-03-2022 11:06-0400 Respiratory rate 14 /min Dr. Manuel Beebe Work Phone: [facility] Work Phone: 03-03-2022 11:06-0400 SaO2% (BldA) [Mass fraction] 100 % Dr. Manuel Beebe Work Phone: [facility] Work Phone: 03-03-2022 11:06-0400 Systolic blood pressure 95 mm[Hg] Dr. Manuel Beebe Work Phone: [facility] Work Phone: 02-24-2022 13:27-0400 Body temperature 97.2 [degF] Dr. Manuel Beebe Work Phone: [facility] Work Phone: 02-24-2022 13:27-0400 Diastolic blood pressure 58 mm[Hg] Dr. Manuel Beebe Work Phone: [facility] Work Phone: 02-24-2022 13:27-0400 Heart rate 70 /min Dr. Manuel Beebe Work Phone: [facility] Work Phone: 02-24-2022 13:27-0400 Respiratory rate 14 /min Dr. Manuel Beebe Work Phone: [facility] Work Phone: 02-24-2022 13:27-0400 SaO2% (BldA) [Mass fraction] 97 % Dr. Manuel Beebe Work Phone: [facility] Work Phone: 02-24-2022 13:27-0400 Systolic blood pressure 88 mm[Hg] Dr. Manuel Beebe Work Phone: [facility] Work Phone: 02-24-2022 13:27-0400 Body temperature 97.2 [degF] Dr. Manuel Beebe Work Phone: [facility] Work Phone: 02-24-2022 13:27-0400 Diastolic blood pressure 58 mm[Hg] Dr. Manuel Beebe Work Phone: [facility] Work Phone: 02-24-2022 13:27-0400 Heart rate 70 /min Dr. Manuel Beebe Work Phone: [facility] Work Phone: 02-24-2022 13:27-0400 Respiratory rate 14 /min Dr. Manuel Beebe Work Phone: [facility] Work Phone: 02-24-2022 13:27-0400 SaO2% (BldA) [Mass fraction] 97 % Dr. Manuel Beebe Work Phone: [facility] Work Phone: 02-24-2022 13:27-0400 Systolic blood pressure 88 mm[Hg] Dr. Manuel Beebe Work Phone: [facility] Work Phone: 02-19-2022 11:41-0400 Body mass index (BMI) [Ratio] 27.2 kg/m2 Dr. Manuel Beebe Work Phone: [facility] Work Phone: 02-10-2022 14:22-0400 Diastolic blood pressure 78 mm[Hg] Dr. Manuel Beebe Work Phone: [facility] Work Phone: 02-10-2022 14:22-0400 Heart rate 81 /min Dr. Manuel Beebe Work Phone: [facility] Work Phone: 02-10-2022 14:22-0400 Respiratory rate 16 /min Dr. Manuel Beebe Work Phone: [facility] Work Phone: 02-10-2022 14:22-0400 SaO2% (BldA) [Mass fraction] 100 % Dr. Manuel Beebe Work Phone: [facility] Work Phone: 02-10-2022 14:22-0400 Systolic blood pressure 114 mm[Hg] Dr. Manuel Beebe Work Phone: [facility] Work Phone: 02-10-2022 13:00-0400 Inhaled oxygen flow rate 4 L/min Dr. Manuel Beebe Work Phone: [facility] Work Phone: 02-10-2022 03:20-0400 Body height 175.[address] Manuel Beebe Work Phone: [facility] Work Phone: 02-10-2022 03:20-0400 Body mass index (BMI) [Ratio] 23.9 kg/m2 Dr. Manuel Beebe Work Phone: [facility] Work Phone: 02-10-2022 03:20-0400 Body temperature 97.5 [degF] Dr. Manuel Beebe Work Phone: [facility] Work Phone: 02-10-2022 03:20-0400 Body weight 73.[address] Manuel Beebe Work Phone: [facility] Work Phone: 02-03-2022 10:58-0400 Body temperature 98.4 [degF] Dr. Manuel Beebe Work Phone: [facility] Work Phone: 02-03-2022 10:58-0400 Body weight 73.[address] Manuel Beebe Work Phone: [facility] Work Phone: 02-03-2022 10:58-0400 Diastolic blood pressure 76 mm[Hg] Dr. Manuel Beebe Work Phone: [facility] Work Phone: 02-03-2022 10:58-0400 Heart rate 70 /min Dr. Manuel Beebe Work Phone: [facility] Work Phone: 02-03-2022 10:58-0400 Respiratory rate 14 /min Dr. Manuel Beebe Work Phone: [facility] Work Phone: 02-03-2022 10:58-0400 SaO2% (BldA) [Mass fraction] 100 % Dr. Manuel Beebe Work Phone: [facility] Work Phone: 02-03-2022 10:58-0400 Systolic blood pressure 115 mm[Hg] Dr. Manuel Beebe Work Phone: [facility] Work Phone: 02-03-2022 10:58-0400 Body temperature 98.4 [degF] Dr. Manuel Beebe Work Phone: [facility] Work Phone: 02-03-2022 10:58-0400 Body weight 73.[address] Manuel Beebe Work Phone: [facility] Work Phone: 02-03-2022 10:58-0400 Diastolic blood pressure 76 mm[Hg] Dr. Manuel Beebe Work Phone: [facility] Work Phone: 02-03-2022 10:58-0400 Heart rate 70 /min Dr. Manuel Beebe Work Phone: [facility] Work Phone: 02-03-2022 10:58-0400 Respiratory rate 14 /min Dr. Manuel Beebe Work Phone: [facility] Work Phone: 02-03-2022 10:58-0400 SaO2% (BldA) [Mass fraction] 100 % Dr. Manuel Beebe Work Phone: [facility] Work Phone: 02-03-2022 10:58-0400 Systolic blood pressure 115 mm[Hg] Dr. Manuel Beebe Work Phone: [facility] Work Phone: 01-27-2022 11:46-0400 Body temperature 98.4 [degF] Dr. Manuel Beebe Work Phone: [facility] Work Phone: 01-27-2022 11:46-0400 Body weight 72.[address] Manuel Beebe Work Phone: [facility] Work Phone: 01-27-2022 11:46-0400 Diastolic blood pressure 85 mm[Hg] Dr. Manuel Beebe Work Phone: [facility] Work Phone: 01-27-2022 11:46-0400 Heart rate 70 /min Dr. Manuel Beebe Work Phone: [facility] Work Phone: 01-27-2022 11:46-0400 Respiratory rate 14 /min Dr. Manuel Beebe Work Phone: [facility] Work Phone: 01-27-2022 11:46-0400 SaO2% (BldA) [Mass fraction] 97 % Dr. Manuel Beebe Work Phone: [facility] Work Phone: 01-27-2022 11:46-0400 Systolic blood pressure 138 mm[Hg] Dr. Manuel Beebe Work Phone: [facility] Work Phone: 01-27-2022 11:46-0400 Body temperature 98.4 [degF] Dr. Manuel Beebe Work Phone: [facility] Work Phone: 01-27-2022 11:46-0400 Body weight 72.[address] Manuel Beebe Work Phone: [facility] Work Phone: 01-27-2022 11:46-0400 Diastolic blood pressure 85 mm[Hg] Dr. Manuel Beebe Work Phone: [facility] Work Phone: 01-27-2022 11:46-0400 Heart rate 70 /min Dr. Manuel Beebe Work Phone: [facility] Work Phone: 01-27-2022 11:46-0400 Respiratory rate 14 /min Dr. Manuel Beebe Work Phone: [facility] Work Phone: 01-27-2022 11:46-0400 SaO2% (BldA) [Mass fraction] 97 % Dr. Manuel Beebe Work Phone: [facility] Work Phone: 01-27-2022 11:46-0400 Systolic blood pressure 138 mm[Hg] Dr. Manuel Beebe Work Phone: [facility] Work Phone: 01-26-2022 08:35-0400 Body weight 70.[address] Manuel Beebe Work Phone: [facility] Work Phone: 01-26-2022 08:35-0400 Diastolic blood pressure 69 mm[Hg] Dr. Manuel Beebe Work Phone: [facility] Work Phone: 01-26-2022 08:35-0400 Heart rate 66 /min Dr. Manuel Beebe Work Phone: [facility] Work Phone: 01-26-2022 08:35-0400 Respiratory rate 16 /min Dr. Manuel Beebe Work Phone: [facility] Work Phone: 01-26-2022 08:35-0400 SaO2% (BldA) [Mass fraction] 100 % Dr. Manuel Beebe Work Phone: [facility] Work Phone: 01-26-2022 08:35-0400 Systolic blood pressure 112 mm[Hg] Dr. Manuel Beebe Work Phone: [facility] Work Phone: 01-26-2022 08:35-0400 Body weight 70.[address] Manuel Beebe Work Phone: [facility] Work Phone: 01-26-2022 08:35-0400 Diastolic blood pressure 69 mm[Hg] Dr. Manuel Beebe Work Phone: [facility] Work Phone: 01-26-2022 08:35-0400 Heart rate 66 /min Dr. Manuel Beebe Work Phone: [facility] Work Phone: 01-26-2022 08:35-0400 Respiratory rate 16 /min Dr. Manuel Beebe Work Phone: [facility] Work Phone: 01-26-2022 08:35-0400 SaO2% (BldA) [Mass fraction] 100 % Dr. Manuel Beebe Work Phone: [facility] Work Phone: 01-26-2022 08:35-0400 Systolic blood pressure 112 mm[Hg] Dr. Manuel Beebe Work Phone: [facility] Work Phone: 01-14-2022 13:15-0500 Diastolic blood pressure 69 mm[Hg] Dr. Manuel Beebe Work Phone: [facility] Work Phone: 01-14-2022 13:15-0500 Heart rate 90 /min Dr. Manuel Beebe Work Phone: [facility] Work Phone: 01-14-2022 13:15-0500 Respiratory rate 18 /min Dr. Manuel Beebe Work Phone: [facility] Work Phone: 01-14-2022 13:15-0500 SaO2% (BldA) [Mass fraction] 96 % Dr. Manuel Beebe Work Phone: [facility] Work Phone: 01-14-2022 13:15-0500 Systolic blood pressure 112 mm[Hg] Dr. Manuel Beebe Work Phone: [facility] Work Phone: 01-14-2022 12:15-0500 Diastolic blood pressure 69 mm[Hg] Dr. Manuel Beebe Work Phone: [facility] Work Phone: 01-14-2022 12:15-0500 Heart rate 90 /min Dr. Manuel Beebe Work Phone: [facility] Work Phone: 01-14-2022 12:15-0500 Respiratory rate 18 /min Dr. Manuel Beebe Work Phone: [facility] Work Phone: 01-14-2022 12:15-0500 SaO2% (BldA) [Mass fraction] 96 % Dr. Manuel Beebe Work Phone: [facility] Work Phone: 01-14-2022 12:15-0500 Systolic blood pressure 112 mm[Hg] Dr. Manuel Beebe Work Phone: [facility] Work Phone: 01-06-2022 09:48-0500 Body temperature 96.9 [degF] Dr. Manuel Beebe Work Phone: [facility] Work Phone: 01-06-2022 09:48-0500 Diastolic blood pressure 74 mm[Hg] Dr. Manuel Beebe Work Phone: [facility] Work Phone: 01-06-2022 09:48-0500 Heart rate 70 /min Dr. Manuel Beebe Work Phone: [facility] Work Phone: 01-06-2022 09:48-0500 Respiratory rate 16 /min Dr. Manuel Beebe Work Phone: [facility] Work Phone: 01-06-2022 09:48-0500 SaO2% (BldA) [Mass fraction] 97 % Dr. Manuel Beebe Work Phone: [facility] Work Phone: 01-06-2022 09:48-0500 Systolic blood pressure 108 mm[Hg] Dr. Manuel Beebe Work Phone: [facility] Work Phone: 01-06-2022 08:48-0500 Body temperature 96.9 [degF] Dr. Manuel Beebe Work Phone: [facility] Work Phone: 01-06-2022 08:48-0500 Diastolic blood pressure 74 mm[Hg] Dr. Manuel Beebe Work Phone: [facility] Work Phone: 01-06-2022 08:48-0500 Heart rate 70 /min Dr. Manuel Beebe Work Phone: [facility] Work Phone: 01-06-2022 08:48-0500 Respiratory rate 16 /min Dr. Manuel Beebe Work Phone: [facility] Work Phone: 01-06-2022 08:48-0500 SaO2% (BldA) [Mass fraction] 97 % Dr. Manuel Beebe Work Phone: [facility] Work Phone: 01-06-2022 08:48-0500 Systolic blood pressure 108 mm[Hg] Dr. Manuel Beebe Work Phone: [facility] Work Phone: 01-06-2022 06:26-0500 Body mass index (BMI) [Ratio] 25 kg/m2 Dr. Manuel Beebe Work Phone: [facility] Work Phone: 01-06-2022 06:26-0500 Body weight [address] Manuel Beebe Work Phone: [facility] Work Phone: 01-06-2022 05:26-0500 Body mass index (BMI) [Ratio] 25 kg/m2 Dr. Manuel Beebe Work Phone: [facility] Work Phone: 01-06-2022 05:26-0500 Body weight [address] Manuel Beebe Work Phone: [facility] Work Phone: 12-10-2021 10:06-0500 Body mass index (BMI) [Ratio] 25.1 kg/m2 Dr. Manuel Beebe Work Phone: [facility] Work Phone: 12-10-2021 10:06-0500 Body weight 77.[address] Manuel Beebe Work Phone: [facility] Work Phone: 12-10-2021 10:06-0500 Diastolic blood pressure 72 mm[Hg] Dr. Manuel Beebe Work Phone: [facility] Work Phone: 12-10-2021 10:06-0500 Heart rate 70 /min Dr. Manuel Beebe Work Phone: [facility] Work Phone: 12-10-2021 10:06-0500 Respiratory rate 17 /min Dr. Manuel Beebe Work Phone: [facility] Work Phone: 12-10-2021 10:06-0500 SaO2% (BldA) [Mass fraction] 94 % Dr. Manuel Beebe Work Phone: [facility] Work Phone: 12-10-2021 10:06-0500 Systolic blood pressure 103 mm[Hg] Dr. Manuel Beebe Work Phone: [facility] Work Phone: 12-10-2021 09:23-0500 Body mass index (BMI) [Ratio] 22.7 kg/m2 Dr. Manuel Beebe Work Phone: [facility] Work Phone: 12-10-2021 09:23-0500 Body temperature 97.3 [degF] Dr. Manuel Beebe Work Phone: [facility] Work Phone: 12-10-2021 09:23-0500 Body weight 69.[address] Manuel Beebe Work Phone: [facility] Work Phone: 12-10-2021 09:23-0500 Diastolic blood pressure 72 mm[Hg] Dr. Manuel Beebe Work Phone: [facility] Work Phone: 12-10-2021 09:23-0500 Heart rate 70 /min Dr. Manuel Beebe Work Phone: [facility] Work Phone: 12-10-2021 09:23-0500 Respiratory rate 17 /min Dr. Manuel Beebe Work Phone: [facility] Work Phone: 12-10-2021 09:23-0500 SaO2% (BldA) [Mass fraction] 94 % Dr. Manuel Beebe Work Phone: [facility] Work Phone: 12-10-2021 09:23-0500 Systolic blood pressure 103 mm[Hg] Dr. Manuel Beebe Work Phone: [facility] Work Phone: 05-08-2021 08:49-0400 Body mass index (BMI) [Ratio] 21.7 kg/m2 Dr. Manuel Beebe Work Phone: [facility] Work Phone: 05-08-2021 08:49-0400 Body mass index (BMI) [Ratio] 21.7 kg/m2 Dr. Manuel Beebe Work Phone: [facility] Work Phone: Encounters Encounter Date Encounter Type Care Provider Facility Start: 08-21-2025 End: 08-21-2025 ambulatory ELISAISRA Chávez GUDLA Facility:[facility] Start: 08-13-2025 ambulatory Manuel Beebe Facilit y:[facility] Start: 08-07-2025 End: 08-08-2025 ambulatory EL HOPE Facility:[facility] Start: 08-06-[address] Elisa Narvaez MD -[facility] Start: 08-06-2025 End: 08-06-2025 ambulatory Manuel Beebe Facility:[facility] Start: 07-31-2025 End: 07-31-2025 ambulatory ELISA D GUDLA Facility:[facility] Start: 07-30-2025 End: 07-30-2025 ambulatory ELISA D GUDLA Facility:[facility] Start: 07-30-2025 Encounter for other preprocedural examination JONNATHAN KOTHARI [facility] Start: 07-30-2025 End: 07-31-2025 ambulatory ELISA D GUDLA Facility:[facility] Start: 07-30-2025 End: 07-30-2025 ambulatory ELISA D GUDLA Facility:[facility] Start: 07-23-2025 End: 07-23-2025 Orders Only Lupe Rushing MD Work Phone: Pre Anesthesia Start: 07-19-2025 End: 07-19-2025 Telephone encounter Merlin Loredo MD Work Phone: Gastroenterology Comment on above: Results Start: 07-17-2025 End: 07-17-2025 Telephone encounter Lupe Rushing MD Work Phone: Pre Anesthesia Comment on above: Primary pulmonary hy pertension (HCC) (Primary Dx) Start: 07-17-2025 End: 07-17-2025 ambulatory ELISA NARVAEZ Facility:[facility] Start: 07-17-2025 Encounter for other preprocedural examination LUPE RUSHING [facility] Start: 07-17-2025 End: 07-17-2025 Admission to establishment Lupe Rushing MD Work Phone: [facility] Start: 07-17-2025 End: 07-17-2025 Anticoagulant drug monitoring Lupe Rushing MD Work Phone: [facility] Comment on above: Moderate recurrent m ajor depression (HCC) (Primary Dx); Chronic respiratory failure with hypoxia (HCC); Chronic diastolic CHF (congestive heart failure) (HCC); Paroxysmal atrial fibrillation (HCC); Post traumatic seizures (HCC); Chronic renal failure, stage 2 (mild); Preoperative examination; Non-recurrent unilateral inguinal hernia without obstruction or gangrene; Brain tumor (HCC); Parkinson's disease, unspecified whether dyskinesia present, unspecified whether manifestations fluctuate (HCC); Atrial fibrillation status post cardioversion (HCC); History of ST elevation myocardial infarction (STEMI); Essential hypertension, benign; Hypertensive heart disease with chronic diastolic congestive heart failure (HCC); Type 2 diabetes mellitus with hypercholesterolemia (HCC); ALBINO (obstructive sleep apnea); Prostate cancer (HCC); On continuous oral anticoagulation; Preop exam for internal medicine; HFrEF (heart failure with reduced ejection fraction) (HCC); Pulmonary hypertension (HCC) Start: 07-17-2025 End: 07-17-2025 Patient encounter status Lupe Rushing MD Work Phone: [facility] Start: 07-17-2025 End: 07-17-2025 Preprocedural examination done Lupe Rushing MD Work Phone: [facility] Start: 07-17-2025 End: 07-18-2025 Patient encounter procedure Merlin Loredo MD Work Phone: Gastroenterology Comment on above: Liver disease (Prima ry Dx) Start: 07-17-2025 End: 07-17-2025 Subsequent hospital visit by physician [facility] Main A21 3 Work Phone: Radiology Comment on above: Liver disease [K76.9 ] Start: 07-17-2025 End: 07-18-2025 ambulatory ELISA NARVAEZ Facility:[facility] Start: 07-17-2025 Encounter for other preprocedural examination JONNATHAN DWIGHTSameer [facility] Start: 07-16-2025 End: 07-16-[address] Dwayne Horton MD -[facility] Work Phone: Start: 07-16-2025 End: 07-16-[address] Manuel Beebe MD Work Phone: -[facility] Start: 07-16-[address] Elisa Narvaez MD -[facility] Start: 07-16-2025 End: 07-16-2025 ambulatory Elisa SERRANO Facility:[facility] Start: 07-09-2025 ambulatory Elisa SERRANO Facili ty:[facility] Start: 07-09-[address] Elisa Narvaez MD -[facility] Start: 06-18-2025 End: 06-18-[address] Manuel Beebe MD Work Phone: -[facility] Start: 06-18-2025 End: 06-18-2025 Patient encounter procedure Maye Rizzo MA -[facility] Work Phone: Start: 06-14-2025 End: 06-14-[address] Manuel Beebe MD Work Phone: -[facility] Start: 06-14-2025 End: 06-14-[address] Cosme Gonzáles MD -[facility] Work Phone: Start: 06-11-[address] Elisa Narvaez MD -[facility] Start: 06-11-2025 End: 06-11-2025 ambulatory Elisa SERRANO Facility:[facility] Start: 05-30-[address] Elisa Narvaez MD -[facility] Start: 05-29-2025 End: 05-30-2025 ambulatory Injection Satish [facility] Work Phone: Hematology/Oncology Comment on above: Prostate cancer (HCC ) (Primary Dx) Start: 05-24-2025 End: 05-24-[address] Manuel Beebe MD Work Phone: -[facility] Start: 05-24-2025 End: 05-24-[address] Cosme Gonzáles MD -[facility] Work Phone: Start: 05-21-2025 End: 05-21-[address] Manuel Beebe MD Work Phone: -[facility] Start: 05-21-2025 End: 05-21-[address] Elisa Narvaez MD -[facility] Start: 05-21-[address] Elisa Narvaez MD -[facility] Start: 05-21-2025 End: 05-21-2025 ambulatory Manuel Beebe Facility:[facility] Start: 05-17-2025 End: 05-17-2025 ambulatory El Arnett MD Work Phone: [facility] Comment on above: 08.07.25 Cure (Open Right Inguinal Hernia Repair 2.5 hours los 2) Start: 05-17-2025 End: 05-17-2025 Preprocedural examination done El Arnett MD Work Phone: [facility] Start: 05-16-2025 End: 05-16-2025 Patient encounter procedure El Arnett MD Work Phone: General Surgery Comment on above: Right inguinal herni a (Primary Dx) Start: 05-16-2025 End: 05-16-2025 ambulatory ELISA NARVAEZ Facility:[facility] Start: 05-14-2025 ambulatory Elisa SERRANO Facili ty:[facility] Start: 05-14-[address] Elisa Narvaez MD -[facility] Start: 04-24-[address] Elisa Narvaez MD -[facility] Start: 04-24-2025 End: 04-24-2025 ambulatory Elisa SERRANO Facility:[facility] Start: 04-12-2025 ambulatory Elisa SERRANO Facili ty:[facility] Start: 04-12-[address] Elisa Narvaez MD -[facility] Start: 03-15-2025 End: 03-15-[address] Manuel Beebe MD Work Phone: [facility] Work Phone: Start: 03-15-2025 End: 03-15-[address] Elisa Narvaez MD -[facility] Start: 03-15-[address] Elisa Narvaez MD -[facility] Start: 03-15-2025 End: 03-15-2025 ambulatory Elisa SERRANO Facility:[facility] Start: 03-13-2025 End: 03-13-[address] Manuel Beebe MD Work Phone: [facility] Work Phone: Start: 03-13-2025 End: 03-13-[address] Cosme Gonzáles MD -[facility] Work Phone: Start: 03-11-2025 End: 03-11-[address] Manuel Beebe MD Work Phone: [facility] Work Phone: Start: 03-11-2025 End: 03-11-[address] Elisa Narvaez MD -[facility] Start: 03-11-[address] 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 Elisa Narvaez MD -[facility] Start: 02-14-2025 End: 02-15-2025 Telephone encounter Merlin Loredo MD Work Phone: [facility] Comment on above: Results Start: 02-13-2025 End: 02-13-2025 Patient encounter procedure Merlin Loredo MD Work Phone: Gastroenterology Comment on above: Liver disease (Prima ry Dx) Start: 02-13-2025 End: 02-13-2025 ambulatory MERLIN LOREDO Facility:[facility] Start: 02-13-2025 End: 02-13-2025 Subsequent hospital visit by physician [facility] A21 2 Radiology Comment on above: Liver disease [K76.9 ] Start: 02-13-2025 End: 02-13-2025 ambulatory ELISA NARVAEZ Facility:[facility] Start: 01-24-2025 End: 01-24-[address] Dwyane Horton MD -[facility] Work Phone: Start: 01-24-2025 End: 01-24-2025 ambulatory Manuel Beebe Facility:[facility] Start: 01-18-2025 End: 01-18-[address] Manuel Beebe MD Work Phone: [facility] Work Phone: Start: 01-18-2025 End: 01-18-[address] Elisa Narvaez MD -[facility] Start: 01-18-2025 End: 01-18-2025 ambulatory Manuel D Talampas Facility:[facility] Start: 12-21-2024 ambulatory Manuel D Tal[place]as Facilit y:[facility] Start: 12-21-[address] Elisa Narvaez MD -[facility] Start: 12-12-2024 End: 12-12-2024 ambulatory Injection [facility] Work Phone: Hematology/Oncology Comment on above: Prostate cancer (HCC ) (Primary Dx) Start: 12-12-2024 End: 12-12-2024 Patient encounter procedure Maye FORREST -[facility] Work Phone: Start: 12-12-2024 End: 12-12-2024 ambulatory Manuel D [place] Facility:[facility] Start: 12-12-2024 End: 12-12-2024 ambulatory Manuel D [place] Facility:[facility] Start: 12-12-2024 End: 12-12-[address] Cosme Gonzáles MD -[facility] Work Phone: Start: 11-23-2024 End: 11-23-[address] Elisa Narvaez MD -[facility] Start: 11-23-2024 End: 11-23-2024 ambulatory Manuel D [place] Facility:[facility] Start: 10-26-2024 End: 10-26-[address] Elisa Narvaez MD -[facility] Start: 10-26-2024 End: 10-26-2024 ambulatory Manuel D [place] Facility:[facility] Start: 10-22-2024 End: 10-22-2024 Telephone encounter Merlin Loredo MD Work Phone: Gastroenterology Comment on above: Orders (New lab orde rs for February appt) Start: 10-22-2024 End: 10-22-[address] Elisa Narvaez MD -[facility] Start: 10-22-2024 End: 10-22-2024 ambulatory Manuel D [place] Facility:[facility] Start: 09-28-2024 End: 09-28-2024 ambulatory Manuel D [place] Facility:[facility] Start: 09-19-2024 End: 09-19-2024 ambulatory Injection Satish [facility] Work Phone: Hematology/Oncology Comment on above: Prostate cancer (HCC ) (Primary Dx) Start: 09-12-2024 End: 09-12-2024 ambulatory Manuel D [place] Facility:[facility] Start: 09-10-2024 End: 09-10-2024 ambulatory Manuel D [place] Facility:[facility] Start: 09-05-2024 End: 09-05-2024 ambulatory Lissy Anna Work Phone: Hematology/Oncology Comment on above: Prostate cancer (HCC ) (Primary Dx); 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) Start: 09-05-2024 End: 09-05-2024 Patient encounter procedure Lissy Anna Work Phone: Hematology/Oncology Start: 08-28-2024 End: 08-28-2024 Patient encounter procedure Merlin Loredo MD Work Phone: Gastroenterology Comment on above: Liver disease (Prima ry Dx) Start: 08-28-2024 End: 08-28-2024 ambulatory Hepatology A5 Work Phone: Gastroenterology Start: 08-28-2024 End: 08-28-2024 Patient encounter procedure Hepatology Procedures A5 Work Phone: Gastroenterology Start: 08-28-2024 End: 08-28-2024 Subsequent hospital visit by physician Us Aleman A21 6 Work Phone: Radiology Comment on above: Liver disease [K76.9 ] Start: 08-22-2024 End: 08-22-2024 Subsequent hospital visit by physician Alfred Ramsey MD Work Phone: Gastroenterology Comment on above: Liver disease [K76.9 ] Start: 08-14-2024 End: 08-14-2024 Telephone encounter Nancy Fontaine RNhand tool filer Comment on above: Education Of Patient /family; Appointment (Voicemail left regarding 08/22/2024 Appointment) Start: 06-20-2024 End: 06-20-2024 ambulatory Injection Satish [facility] Work Phone: Hematology/Oncology Comment on above: Prostate cancer (HCC ) (Primary Dx) Start: 06-13-2024 End: 06-13-2024 Office outpatient new 45 minutes Maximo Watkins MD Work Phone: Orthopaedics Comment on above: Chronic right hip pa in (Primary Dx); S/P hip hemiarthroplasty Start: 2024 End: 2024 ambulatory Injection Satish [facility] Work Phone: Hematology/Oncology Comment on above: Prostate cancer (HCC ) (Primary Dx) Start: 05-23-2024 Telephone encounter Ignacio jaimes MD [...] current pathological fracture Start: 04-23-2024 ambulatory MANUEL BEEBE [facility] Ambulatory Start: 03-26-2024 Orders Only Kourtney Bhatia MD Work Phone: Endocrinology Comment on above: Age-related osteopor osis without current pathological fracture (Primary Dx); Prostate cancer (HCC) Start: 03-25-2024 Telephone encounter Jonnathan pugh DO Work Phone: Hematology/Oncology Comment on above: Results Start: 03-21-2024 End: 03-21-2024 Subsequent hospital visit by physician Elham [facility] Work Phone: Radiology Comment on above: Right hip pain [M25. 551] Start: 03-21-2024 End: 03-21-2024 Patient encounter procedure Jonnathan Travissameer DO Work Phone: Hematology/Oncology Start: 03-21-2024 End: 03-21-2024 ambulatory Injection Satish [facility] Work Phone: Hematology/Oncology Comment on above: [...] 01-19-[address] Manuel Beebe Work Phone: [facility] Work Phone: Start: 01-19-2024 End: 01-19-[address] Manuel Beebe Work Phone: [facility] Start: 01-19-[address] Manuel gross Work Phone: [facility] Start: 01-18-2024 ambulatory Dinorah edward air tube releaserOffice Analyst Management Comment on above: Community Monitoring Outreach Start: 01-11-2024 End: 01-11-[address] Manuel Beebe Work Phone: [facility] Work Phone: Start: 01-11-2024 End: 01-11-[address] Manuel Beebe Work Phone: [facility] Start: 01-11-[address] Manuel gross Work Phone: [facility] Start: 01-06-2024 End: 01-06-2024 Orders Only Kourtney Bhatia MD Work Phone: Endocrinology Comment on above: Age-related osteopor osis without current pathological fracture (Primary Dx); Prostate cancer (HCC) Start: 01-06-2024 End: 01-06-[address] Manuel Beebe Work Phone: [facility] Start: 01-06-[address] Manuel gross Work Phone: [facility] Start: 12-30-2023 End: 12-30-[address] Manuel Beebe Work Phone: [facility] Work Phone: Start: 12-30-2023 End: 12-30-[address] 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 Manuel Beebe Work Phone: [facility] Work Phone: Start: 12-06-2023 ambulatory Dinorah Fuentes Staff ord air tube releaserOffice Analyst Management Comment on above: Community Monitoring Outreach Start: 11-14-2023 End: 11-14-[address] Manuel Beebe Work Phone: [facility] Work Phone: Start: 11-14-2023 End: 11-14-[address] Manuel Beebe Work Phone: [facility] Start: 10-19-2023 End: 10-19-[address] Manuel Beebe Work Phone: [facility] Work Phone: Start: 10-19-2023 End: 10-19-[address] Manuel Beebe Work Phone: [facility] Start: 10-13-2023 End: 10-13-[address] Manuel Beebe Work Phone: [facility] Work Phone: Start: 10-06-2023 End: 10-06-[address] Manuel Beebe Work Phone: [facility] Work Phone: Start: 09-30-2023 Telephone encounter Jonnathan pugh DO Work Phone: Hematology/Oncology Start: 09-23-2023 ambulatory Dinorah Fuentes Staff ord air tube releaserOffice Analyst Management Comment on above: Community Monitoring Outreach Start: 09-21-2023 Chart abstracting Lillian miller dough brake machine operator/Oncology Comment on above: Research (Pre-Screen Research) Start: 09-14-2023 Telephone encounter Jonnathan pugh DO Work Phone: Hematology/Oncology Comment on above: Results Start: 09-02-2023 ambulatory Dinorah edward air tube releaserOffice Analyst Management Comment on above: Community Monitoring Outreach Start: 08-22-2023 End: 08-22-[address] Manuel Beebe Work Phone: [facility] Work Phone: Start: 08-22-2023 End: 08-22-[address] Manuel Beebe Work Phone: [facility] Start: 08-22-2023 End: 08-22-2023 Dr. Manuel Beebe Work Phone: [facility] Start: 08-08-2023 End: 08-08-[address] Manuel Beebe Work Phone: [facility] Work Phone: Start: 08-08-2023 End: 08-08-[address] Manuel Beebe Work Phone: [facility] Start: 08-08-2023 End: 08-08-2023 Dr. Manuel Beebe Work Phone: [facility] Start: 08-05-2023 End: 08-05-[address] Manuel Beebe Work Phone: [facility] Work Phone: Start: 08-05-2023 End: 08-05-[address] Manuel Beebe Work Phone: [facility] Start: 08-05-2023 End: 08-05-2023 Dr. Manuel Beebe Work Phone: [facility] Start: 08-04-2023 End: 08-04-[address] Manuel Beebe Work Phone: [facility] Work Phone: Start: 08-03-2023 Telephone encounter Merlin Loredo MD Work Phone: Gastroenterology Comment on above: Orders Start: 07-21-2023 End: 07-21-[address] Manuel Beebe Work Phone: [facility] Work Phone: Start: 07-21-2023 End: 07-21-[address] Manuel Beebe Work Phone: [facility] Start: 07-21-2023 End: 07-21-2023 Dr. Manuel Beebe Work Phone: [facility] Start: 07-20-2023 ambulatory Dinorah edward air tube releaserOffice Analyst Management Comment on above: Community Monitoring Outreach Start: 07-19-2023 End: 07-19-[address] Manuel Beebe Work Phone: [facility] Start: 07-19-2023 End: 07-19-2023 Dr. Manuel Beebe Work Phone: [facility] Start: 07-15-2023 End: 07-15-[address] Manuel Beebe Work Phone: [facility] Work Phone: Start: 07-15-2023 End: 07-15-[address] Manuel Beebe Work Phone: [facility] Start: 07-15-2023 End: 07-15-2023 Dr. Manuel Beebe Work Phone: [facility] Start: 07-12-2023 End: 07-12-[address] Manuel Beebe Work Phone: [facility] Work Phone: Start: 07-12-2023 End: 07-12-2023 Dr. Manuel Beebe Work Phone: [facility] Work Phone: Start: 07-08-2023 End: 07-08-[address] Manuel Beebe Work Phone: [facility] Work Phone: Start: 07-08-2023 End: 07-08-[address] Manuel Beebe Work Phone: [facility] Start: 07-08-2023 End: 07-08-2023 Dr. Manuel Beebe Work Phone: [facility] Start: 07-01-2023 End: 07-01-[address] Manuel Beebe Work Phone: [facility] Work Phone: Start: 07-01-2023 End: 07-01-[address] Manuel Beebe Work Phone: [facility] Start: 07-01-2023 End: 07-01-2023 Dr. Manuel Beebe Work Phone: [facility] Start: 06-27-2023 ambulatory Dinorah edward air tube releaserOffice Analyst Management Comment on above: Community Monitoring Outreach Start: 06-26-2023 Non-patient / Non-visit Dr. Elizabeth Beebe Work Phone: [facility] Work Phone: Start: 06-26-2023 Dr. Manuel simon Work Phone: [facility] Work Phone: Start: 06-25-2023 Dr. Manuel simon Work Phone: [facility] Work Phone: Start: 06-24-2023 Dr. Manuel simon Work Phone: [facility] Work Phone: Start: 06-24-2023 Dr. Manuel simon Work Phone: [facility] Start: 06-23-2023 Dr. Manuel simon Work Phone: [facility] Start: 06-23-2023 Dr. Manuel simon Work Phone: [facility] Work Phone: Start: 06-22-2023 Dr. Manuel simon Work Phone: [facility] Work Phone: Start: 06-21-2023 End: 06-26-2023 Evaluation and management of inpatient Dr. Manuel Beebe Work Phone: [facility] Work Phone: Start: 06-21-2023 End: 06-26-2023 Dr. Manuel Beebe Work Phone: [facility] Work Phone: Start: 06-21-2023 End: 06-21-2023 Emergency department patient visit Dr. Manuel Beebe Work Phone: [facility] Work Phone: Start: 06-21-2023 End: 06-21-2023 Dr. Manuel Beebe Work Phone: [facility]Emergency Department Work Phone: Start: 06-20-2023 Dr. Manuel simon Work Phone: [facility] Start: 06-14-2023 Dr. Manuel simon Work Phone: [facility] Start: 06-13-2023 End: 06-13-[address] Manuel Beebe Work Phone: [facility] Work Phone: Start: 06-13-2023 End: 06-13-2023 Dr. Manuel Beebe Work Phone: [facility] Start: 2023 End: 2023 Dr. Manuel Beebe Work Phone: [facility] Work Phone: Start: 06-06-2023 Dr. Manuel simon Work Phone: [facility] Start: 05-25-2023 End: 05-25-[address] Manuel Beebe Work Phone: [facility] Work Phone: Start: 05-25-2023 End: 05-25-2023 Dr. Manuel Beebe Work Phone: [facility] Start: 05-20-2023 Dr. Manuel simon Work Phone: [facility] Start: 05-18-2023 Dr. Manuel simon Work Phone: [facility] Start: 05-11-2023 Dr. Manuel simon Work Phone: [facility] Start: 05-04-2023 End: 05-04-[address] Manuel Beebe Work Phone: [facility] Work Phone: Start: 05-04-2023 End: 05-04-2023 Dr. Manuel Beebe Work Phone: [facility]Laboratory Work Phone: Start: 05-03-2023 Dr. Manuel simon Work Phone: [facility] Start: 04-26-2023 Dr. Manuel simon Work Phone: [facility] Start: 04-25-2023 Non-patient / Non-visit Dr. Elizabeth Beebe Work Phone: [facility] Start: 04-25-2023 Dr. Manuel simon Work Phone: [facility] Work Phone: Start: 04-25-2023 Non-patient / Non-visit Dr. Elizabeth Beebe Work Phone: [facility] Start: 04-25-2023 Dr. Manuel simon Work Phone: [facility] Start: 04-24-2023 Non-patient / Non-visit Dr. Elizabeth Beebe Work Phone: [facility] Start: 04-24-2023 Dr. Manuel simon Work Phone: [facility] Work Phone: Start: 04-23-2023 End: 04-23-2023 Dr. Manuel Beebe Work Phone: [facility] Work Phone: Start: 04-23-2023 End: 04-25-2023 Evaluation and management of inpatient Dr. Manuel Beebe [facility] Start: 04-23-2023 End: 04-25-2023 Dr. Manuel Beebe [facility] Work [facility]: Start: 04-22-2023 Telephone encounter Manuel dash MD Work Phone: [facility] [place] Comment on above: Patient Update Start: 04-20-2023 ambulatory Dinorah edward air tube releaserOffice Analyst Management Comment on above: Community Monitoring Outreach Start: 04-19-[address] Manuel gross Work Phone: [facility] Start: 04-19-2023 End: 04-19-2023 Dr. Manuel Beebe Work Phone: [facility] Start: 04-16-2023 Non-patient / Non-visit Dr. Elizabeth Beebe Work Phone: [facility] Start: 04-16-2023 Dr. Manuel simon Work Phone: [facility] Work Phone: Start: 04-16-2023 End: 04-16-2023 Dr. Manuel Beebe Work Phone: [facility] Work Phone: Start: 04-15-2023 Non-patient / Non-visit Dr. Elizabeth Beebe Work Phone: [facility] Start: 04-15-2023 Dr. Manuel simon Work Phone: [facility] Work Phone: Start: 04-14-2023 Non-patient / Non-visit Dr. Elizabeth Beebe Work Phone: [facility] Start: 04-14-2023 Dr. Manuel simon Work Phone: [facility] Work Phone: Start: 04-13-2023 Non-patient / Non-visit Dr. Elizabeth Beebe Work Phone: [facility] Start: 04-13-2023 End: 04-16-2023 Evaluation and management of inpatient Dr. Manuel Beebe Work Phone: [facility] 3 Start: 04-13-2023 End: 04-16-2023 Dr. Manuel Beebe Work Phone: [facility] Work Phone: Start: 04-13-2023 Telephone encounter Manuel dash MD Work Phone: [facility] [place] Comment on above: Patient Update Start: 04-12-2023 End: 04-12-2023 Office outpatient visit 25 minutes Olga Cavazos APRN.LIFE ENRICHMENT DIRECTOR Work Phone: [facility] [place] Comment on above: Hypotension due to d rugs (Primary Dx); Nausea; Adult failure to thrive; Type 2 diabetes mellitus with other specified complication, with long-term current use of insulin (HCC); Paroxysmal atrial fibrillation (HCC); Chronic diastolic CHF (congestive heart failure) ([facility]); Parkinson's disease ([facility]) Start: 04-12-2023 Non-patient / Non-visit Dr. Elizabeth Beebe Work Phone: [facility] Start: 04-12-2023 Dr. Manuel simon Work Phone: [facility] Work Phone: Start: 04-11-2023 Telephone encounter Manuel dash MD Work Phone: [facility] [place] Comment on above: Faxed to [facility] med/allison g verbal orders Start: 04-11-2023 Non-patient / Non-visit Dr. Elizabeth Beebe Work Phone: [facility] Start: 04-11-2023 Dr. Manuel simon Work Phone: [facility] Work Phone: Start: 04-10-2023 Non-patient / Non-visit Dr. Elizabeth Beebe Work Phone: [facility] Start: 04-10-2023 End: 04-12-2023 Evaluation and management of inpatient Dr. Manuel Beebe [facility] Start: 04-10-2023 End: 04-12-[address] Manuel Beebe Work Phone: [facility] Work Phone: Start: 04-10-2023 End: 04-12-2023 Dr. Manuel Beebe Work Phone: [facility] Work Phone: Start: 04-07-2023 Telephone encounter Manuel dash MD Work Phone: [facility] [place] Comment on above: Patient Request (Fozia stapleton is going to the zoo with his meter shop superintendent Bob Ferraro at the [facility] and she is in need of a letter for her to be able to take him free of charge to the zo stating that he is disabled and needs her assistance and 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 ) Start: 03-23-2023 End: 03-23-2023 Office outpatient visit 25 minutes Manuel Beebe MD Work Phone: [facility] [place] Comment on above: Controlled type 2 di [...] End: 03-09-2023 Subsequent hospital visit by physician [facility] A21 2 Radiology Comment on above: Liver disease [K76.9 ] Start: 02-25-2023 ambulatory Dinorah Fuentes Staff ord air tube releaserOffice Analyst Management Comment on above: Community Monitoring Outreach Start: 02-16-2023 End: 02-16-[address] Manuel Beebe Work Phone: [facility] Start: 02-16-2023 End: 02-16-2023 Dr. Manuel Beebe Work Phone: [facility] Work Phone: Start: 02-09-2023 ambulatory Dinorah Fuentes Staff ord air tube releaserOffice Analyst Management Comment on above: Community Monitoring Outreach Start: 02-02-2023 ambulatory Dinorah Fuentes Staff ord air tube releaserOffice Analyst Management Comment on above: Community Monitoring Outreach Start: 01-27-2023 End: 01-27-[address] Manuel Beebe Work Phone: [facility] Start: 01-27-2023 End: 01-27-2023 Dr. Manule Beebe Work Phone: [facility] Work Phone: Start: 01-26-2023 End: 01-26-[address] Manuel Beebe Work Phone: [facility] Start: 01-26-2023 End: 01-26-2023 Dr. Manuel Beebe Work Phone: [facility] Work Phone: Start: 01-06-2023 End: 01-06-[address] Manuel Beebe Work Phone: [facility] Start: 01-06-2023 End: 01-06-[address] Manuel Beebe Work Phone: [facility] Work Phone: Start: 01-06-2023 End: 01-06-[address] Manuel Beebe Work Phone: [facility] Start: 01-04-2023 ambulatory Dinorah Fuentes Staff ord air tube releaserOffice Analyst Management Comment on above: Community Monitoring Outreach Start: 12-30-2022 ambulatory Dinorah Fuentes Staff ord air tube releaserOffice Analyst Management Comment on above: Community Monitoring Outreach Start: 12-23-2022 End: 12-23-[address] Manuel Beebe Work Phone: [facility] Start: 12-22-2022 Refill Manuel ro MD Work Phone: [facility] [place] Comment on above: Refill Request Start: 11-25-2022 Non-patient / Non-visit Dr. Elizabeth Beebe Work Phone: [facility] Start: 11-25-2022 End: 11-25-[address] Manuel Beebe Work Phone: [facility] Work Phone: Start: 11-25-2022 End: 11-25-[address] Manuel Beebe Work Phone: [facility]-Cardiovascular Services Start: 11-22-2022 ambulatory Dinorah Fuentes Staff ord air tube releaserOffice Analyst Management Comment on above: Community Monitoring Outreach Start: 11-10-2022 End: 11-10-[address] Manuel Beebe Work Phone: [facility] Start: 10-21-2022 End: 10-21-[address] Manuel Beebe Work Phone: [facility] Work Phone: Start: 10-21-2022 End: 10-21-[address] Manuel Beebe Work Phone: [facility] Start: 10-18-2022 ambulatory Dinorah edward air tube releaserOffice Analyst Management Comment on above: Community Monitoring Outreach Start: 10-06-2022 ambulatory Lorrie Palomo Cho pra PA-C Work Phone: Pulmonary Medicine Start: 10-04-2022 Telephone encounter Manuel dash MD Work Phone: [facility] [place] Comment on above: Orders ([employer]- do not use) Start: 09-15-2022 ambulatory Dinorah edward air tube releaserOffice Analyst Management Comment on above: Community Monitoring Outreach Start: 09-15-2022 Refill Rustam Masterson PA-C Work Phone: Urology Comment on above: Refill Request Start: 09-14-2022 Refill Rustam Masterson PA-C Work Phone: Urology Comment on above: Refill Request Start: 09-09-2022 End: 09-09-[address] Manuel Beebe Work Phone: [facility] Start: 09-05-2022 Refill Rustam Masterson PA-C Work Phone: Urology Comment on above: Refill Request Start: 09-02-2022 End: 09-02-2022 Subsequent hospital visit by physician [facility] A21 3 Work Phone: Radiology Comment on above: Liver disease [K76.9 ] Start: 09-02-2022 End: 09-02-2022 Patient encounter procedure Merlin Loredo MD Work Phone: Gastroenterology Comment on above: Liver disease (Prima ry Dx) Start: 08-13-2022 ambulatory Albino Murray RN Office Analyst Management Comment on above: Community Monitoring Outreach Start: 08-11-2022 End: 08-11-[address] Manuel Beebe Work Phone: [facility] Work Phone: Start: 08-11-2022 End: 08-11-[address] Manuel Beebe Work Phone: [facility]-Pulmonary Services/Neurology Start: 08-09-2022 End: 08-09-[address] Manuel Beebe Work Phone: [facility] Work Phone: Start: 08-09-2022 End: 08-09-[address] Manuel Beebe Work Phone: [facility] Start: 08-09-2022 End: 08-09-[address] Manuel Beebe Work Phone: [facility] Start: 07-21-2022 End: 07-21-[address] Manuel Beebe Work Phone: [facility] Work Phone: Start: 07-21-2022 End: 07-21-[address] Manuel Beebe Work Phone: [facility] Start: 07-20-2022 Telephone encounter Manuel dash MD Work Phone: [facility] [place] Comment on above: Appointment Start: 07-15-2022 Telephone encounter Manuel dash MD Work Phone: [facility] [place] Comment on above: Orders (Mobility sco oter) Start: 06-23-2022 ambulatory Albino Murray RN Ambulatory Best Practice Alerts Comment on above: Community Monitoring Outreach Start: 06-16-2022 Refill Munira Dickerson MD Work Phone: [facility] Comment on above: Status post hip mann arthroplasty (Primary Dx) Start: 06-15-2022 End: 06-16-2022 ambulatory MUNIRA DICKERSON [facility] Start: 06-15-2022 End: 06-15-2022 Office outpatient visit 15 minutes Munira Dickerson MD Work Phone: [facility] Comment on above: Status post hip mann arthroplasty (Primary Dx) Start: 06-14-2022 Telephone encounter Manuel dash MD Work Phone: [facility] [place] Comment on above: Orders Start: 06-07-2022 ambulatory Albino Murray RN Ambulatory Best Practice Alerts Comment on above: Community Monitoring Outreach (CHF / Asthma CDM Outreach) Start: 06-07-2022 End: 06-07-2022 Emergency department patient visit Dr. Manuel Beebe Work Phone: [facility]-Emergency Department Start: 06-03-2022 Orders Only Munira Dickerson MD Work Phone: [facility] Comment on above: Hip fracture requiri ng operative repair, right, closed, initial encounter (HCC) (Primary Dx); Status post hip hemiarthroplasty Start: 05-24-2022 End: 05-24-[address] Manuel Beebe Work Phone: [facility] Start: 05-24-2022 End: 05-24-[address] Manuel Beebe Work Phone: [facility] Start: 05-19-2022 Refill Manuel ro MD Work Phone: [facility] [place] Comment on above: Refill Request (SEE RX NOTES) Community Monitoring Outreach (CHF/ Asthma CDM Outreach) Start: 05-18-2022 End: 05-19-2022 [facility] Start: 05-18-2022 End: 05-18-2022 Office outpatient visit 15 minutes Munira Dickerson MD Work Phone: [facility] Comment on above: Hip fracture requiri ng operative repair, right, closed, initial encounter (HCC) (Primary Dx); Low back pain without sciatica, unspecified back pain laterality, unspecified chronicity Start: 05-12-2022 Telephone encounter Manuel dash MD Work Phone: [facility] [place] Comment on above: Handicap Placard Start: 05-05-2022 End: 05-06-[address] [facility] Start: 04-30-2022 Telephone encounter Manuel dash MD Work Phone: [facility] [place] Comment on above: Patient Update Start: 04-30-2022 End: 04-30-2022 Emergency department patient visit Dr. Manuel Beebe Work Phone: [facility]Emergency Department Start: 04-28-2022 End: 04-28-[address] Manuel Beebe Work Phone: [facility] Start: 04-27-2022 Non-patient / Non-visit Dr. Elizabeth Beebe Work Phone: [facility] Start: 04-26-2022 Non-patient / Non-visit Dr. Elizabeth Beebe Work Phone: [facility] Start: 04-26-2022 Orders Only Munira Dickerson MD Work Phone: [facility] Comment on above: Pain (Primary Dx) Start: 04-26-2022 Non-patient / Non-visit Dr. Elizabeth Beebe Work Phone: [facility] Start: 04-25-2022 Non-patient / Non-visit Dr. Elizabeth Beebe Work Phone: [facility] Start: 04-25-2022 End: 04-27-2022 Evaluation and management of inpatient Dr. Manuel Beebe [facility] Start: 04-25-[address] Manuel gross Work [facility] Start: 04-21-2022 ambulatory Albino Murray RN Office Analyst Management Comment on above: Community Monitoring Outreach (CHF / Asthma CDM Outreach) Start: 04-16-2022 End: 04-16-2022 ambulatory Jana Lara [facility] Work Phone: [facility] Comment on above: Controlled type 2 di abetes mellitus without complication, with long-term current use of insulin (HCC) (Primary Dx) Start: 04-16-2022 End: 04-16-2022 Telemedicine consultation with patient Jana Lara [facility] Work Phone: [facility] Start: 04-13-[address] Manuel Beebe Work Phone: [facility] Start: 04-13-2022 End: 04-13-[address] Manuel Beebe Work Phone: [facility] Start: 04-06-2022 ambulatory Albino Murray RN Office Analyst Management Comment on above: Community Monitoring Outreach (CHF/ CDM Outreach ) Start: 04-06-2022 Telephone encounter Manuel dash MD Work Phone: [facility] [place] Comment on above: Home Health Orders Start: 04-01-2022 Telephone encounter Jana Lara [facility] Work Phone: [facility] Comment on above: Diabetes Start: 03-31-2022 End: 03-31-[address] Manuel Beebe Work Phone: [facility]Medical Out Start: 03-30-2022 Orders Only Munira Dickerson MD Work Phone: [facility] Comment on above: Low back pain withou t sciatica, unspecified back pain laterality, unspecified chronicity (Primary Dx) Start: 03-25-2022 ambulatory Albino Murray RN Office Analyst Management Comment on above: Community Monitoring Outreach (CHF Telephonic CDM Outreach) Start: 03-23-2022 End: 03-24-2022 Orders Only Munira Dickerson MD Work Phone: [facility] Comment on above: Pain (Primary Dx) Start: 03-23-2022 End: 03-23-2022 Postop follow up visit related to original px Munira Dickerson MD Work Phone: [facility] Comment on above: Hip fracture requiri ng operative repair, right, closed, initial encounter (HCC) (Primary Dx); Low back pain without sciatica, unspecified back pain laterality, unspecified chronicity Start: 03-18-2022 Orders Only Munira Dickerson MD Work Phone: [facility] Comment on above: Pain (Primary Dx) Start: 03-17-2022 End: 03-17-[address] Manuel Beebe Work Phone: [facility] Start: 03-17-[address] Manuel Beebe [facility] Start: 03-15-2022 ambulatory Albino Murray RN Office Analyst Management Comment on above: Community Monitoring Outreach (CHF/ Asthma Telephonic CDM Outreach ) Start: 03-12-2022 Non-patient / Non-visit Dr. Elizabeth Beebe Work Phone: [facility] Start: 03-10-2022 End: 03-10-[address] Manuel Beebe Work Phone: [facility] Start: 03-10-2022 Non-patient / Non-visit Dr. Elizabeth Beebe Work Phone: [facility] Start: 03-03-2022 ambulatory Albino Murray RN Office Analyst Management Comment on above: Community Monitoring Outreach (CHF/ Asthma Telephonic CDM Outreach) Start: 03-03-2022 End: 03-03-[address] Manuel Beebe Work Phone: [facility] Start: 02-24-2022 Documentation procedure Ashli Chang MA [facility] Start: 02-24-2022 End: 02-24-[address] Manuel Beebe Work Phone: [facility] Start: 02-22-[address] jamel air tube releaserOffice Analyst Management Comment on above: Community Monitoring Outreach (CHF/ Asthma CDM Telephonic Outreach) Start: 02-22-2022 Non-patient / Non-visit Dr. Elizabeth Beebe Work Phone: [facility] Start: 02-19-2022 Non-patient / Non-visit Dr. Elizabeth Beebe Work Phone: [facility] Start: 02-19-2022 Orders Only Munira Dickerson MD Work Phone: [facility] Comment on above: Hip fracture requiri ng operative repair, right, closed, initial encounter (HCC) (Primary Dx); Status post hip hemiarthroplasty Start: 02-19-2022 End: 04-14-2022 Evaluation and management of inpatient Dr. Manuel Beebe Work Phone: [facility]Transitional Care [facility] Start: 02-12-2022 Telephone encounter Jana Lara [facility] Work Phone: H[facility] PHARMACY HB-3 Comment on above: cancelling apt/fall (in hospital) Start: 02-10-2022 End: 02-19-2022 Evaluation and management of inpatient PHYSICIAN [facility] Start: 02-10-2022 Orders Only Moshe Alanis MD Work Phone: [facility] Provider Hospitalist Start: 02-10-2022 End: 02-10-2022 Emergency department patient visit Dr. Manuel Beebe Work Phone: [facility]-Emergency Department Start: 02-09-[address] Manuel Beebe Work Phone: [facility]-Radiation Oncology Start: 02-04-2022 ambulatory Albino Murray RN Office Analyst Management Comment on above: Community Monitoring Outreach (CHF/ Asthma CDM Outreach) Start: 02-03-2022 Telephone encounter Jana Lara [facility] Work Phone: [facility] Comment on above: Orders (Testing supp lies) Start: 02-03-2022 End: 02-03-[address] Manuel Beebe Work Phone: [facility] Start: 02-02-2022 End: 02-02-2022 Refill Manuel Beebe MD Work Phone: [facility] Comment on above: Refill Request Controlled type 2 di abetes mellitus without complication, with long-term current use of insulin (HCC) (Primary Dx); Medication management Start: 01-27-2022 End: 01-27-[address] Manuel Beebe Work Phone: [facility] Start: 01-26-2022 End: 01-26-[address] Manuel Beebe Work Phone: [facility] Start: 01-21-2022 Non-patient / Non-visit Dr. Elizabeth Beebe Work Phone: [facility] Start: 01-14-2022 End: 01-14-[address] Manuel Beebe Work Phone: [facility] Start: 01-14-2022 End: 01-14-[address] Manuel Beebe Work Phone: [facility] Start: 01-13-2022 Non-patient / Non-visit Dr. Elizabeth Beebe Work Phone: [facility] Start: 01-13-[address] Saray Beebe Work Phone: [facility] Start: 01-06-2022 End: 01-06-2022 Admission to same day surgery center Dr. Manuel Beebe Work Phone: [facility]-Surgical Day Care Start: 12-21-2021 End: 12-21-[address] Manuel Beebe Work Phone: [facility] Start: 12-10-2021 End: 12-10-[address] Manuel Beebe Work Phone: [facility] Start: 11-19-2021 End: 11-19-[address] Manuel Beebe Work Phone: [facility]-Cat Scan, [facility] Start: 11-12-2021 End: 11-12-[address] Manuel Beebe Work Phone: [facility]-Laboratory, Specimen Start: 05-08-2021 Telephone encounter Manuel dash MD Work Phone: [facility] Comment on above: Weight Loss Start: 12-31-2013 End: 03-08-2016 Preprocedural examination done Merlin Loredo MD Work Phone: [facility] Procedures Date Procedure Procedure Detail Performing Clinician Start: 07-17-2025 Us abdominal real ti me w/image limited Merlin Loredo MD Work Phone: Start: 07-17-2025 Antibody screen JONNATHAN ACOSTA Comment on above: Order Comment: Speci men Type: BLOOD SPECIMENOrdering Facility: [facility] Address: [address] [place] [address] Performed By: #### T [id number] ####CC [facility] BLOOD BANKCLIA [id number] [place] [address] [place] Start: 02-13-2025 Us abdominal real ti me w/image limited Merlin Loredo MD Work Phone: Start: 08-28-2024 Liver elastography w /o imag w/i&r Parisa Miller APRN.CNP Work Phone: Start: 08-28-2024 Us [...] & FLU Ant igen (Rapid) Dr. Manuel eBebe Work Phone: Start: 02-10-2022 CT of head without contrast Dr. Manuel Beebe Work Phone: Start: 02-10-2022 Plain chest X-ray Dr. Saray Beebe Work Phone: Start: 02-10-2022 Plain x-ray of pelvi s and lower extremity Dr. Manuel Beebe Work Phone: Start: 02-10-2022 Radiologic examinati [...] Treatment Date Care Activity Detail Author Start: 07-17-2026 Creatinine measurement Serum Creatinine [facility] Start: 03-06-2026 BP Controlled (<130/80) BP Controlled (<130/80) [facility] Start: 02-13-2026 BP Controlled (<130/80) BP Controlled (<130/80) [facility] Start: 02-13-2026 Creatinine measurement Serum Creatinine [facility] Start: 01-15-2026 End: 01-15-2026 Patient encounter procedure Radiology Comment on above: Liver disease [K76.9] 6 Month Follow Up Start: 12-17-2025 End: 02-14-2026 CBC panel - Blood by Automated count COMPLETE BLOOD COUNT Lab Routine Liver disease Expected: 12/17/2025, Expires: 02/14/2026 [facility] Comment on above: Expected: 12/17/2025, Expires: Start: 12-17-2025 End: 02-14-2026 Comprehensive metabolic 2000 panel - Serum or Plasma COMPREHENSIVE METABOLIC PANEL Lab Routine Liver disease Expected: 12/17/2025, Expires: 02/14/2026 [facility] Work Phone: Comment on above: Expected: 12/17/2025, Expires: Start: 12-17-2025 End: 02-14-2026 PT panel - Platelet poor plasma by Coagulation assay PROTHROMBIN TIME Lab Routine Liver disease Expected: 12/17/2025, Expires: 02/14/2026 [facility] Comment on above: Expected: 12/17/2025, Expires: Start: 12-17-2025 End: 02-14-2026 US Abdomen RUQ US ABD RIGHT UPPER QUADRANT Radiology Routine Liver disease Expected: 12/17/2025, Expires: 02/14/2026 [facility] Comment on above: Expected: 12/17/2025, Expires: Start: 09-05-2025 BP Controlled (<130/80) BP Controlled (<130/80) [facility] Start: 08-28-2025 BP Controlled (<130/80) BP Controlled (<130/80) [facility] Start: 08-28-2025 Creatinine measurement Serum Creatinine [facility] Start: 08-28-2025 End: 08-28-2025 Patient encounter procedure [facility] Comment on above: HFrEF (heart failure with reduced ejecti on fraction) ([facility]) [I50.20] Start: 08-21-2025 End: 08-21-2025 ambulatory Marlena Rubalcava [facility] Comment on above: PSA 6MO OV/INJ &LAB TODA Y* Q6MO LUPRON/Q6MO PRO DADA/ORDERING PROV DR BHATIA/DEWAYNER* (SO)PSA Start: 08-07-2025 End: 08-07-2025 Admission to same day surgery center 08/07/2025 12:45 PM EDT - 08/07/2025 3:21 PM EDT Surgery Admitting [address] [place] [address] El Arnett MD [address] [place], [place] [id number] HERNIORRHAPHY INGUINAL INITIAL HERNIA >5 YRS REDUCIBLE (ELECTIVE) Admitting Comment on above: HERNIORRHAPHY INGUINAL INITIAL HERNIA >5 YRS REDUCIBLE (ELECTIVE) Start: 08-07-2025 End: 08-07-2025 Rpr 1st ingun hrna age 7 yrs/> reducible HERNIORRHAPHY INGUINAL INITIAL HERNIA >5 YRS REDUCIBLE (ELECTIVE) Preoperative examination Non-recurrent unilateral inguinal hernia without obstruction or gangrene 08/07/2025 12:45 PM EDT [facility] Start: 08-07-2025 Subsequent hospital visit by physician Admitting Comment on above: Preoperative examination [Z01.818], Non- recurrent unilateral inguinal hernia without obstruction or gangrene [K40.90] Start: 07-30-2025 End: 07-30-2025 Patient encounter procedure 07/30/2025 1:30 PM EDT Office Visit Pulmonary Medicine [address] [place], [place] [id number] Bakari Chaudhry MD [address] [place] [address] Comment: Pre-op eval Bob Ferraro/EDGAR verbally aware of Appts Pulmonary Medicine Comment on above: Comment: Pre-op eval Bob Ferraro/EDGAR jeong aware of Appts Start: 07-30-2025 End: 07-30-2025 Patient encounter procedure 07/30/2025 11:45 AM EDT Appointment Xray [facility] [address] [place] [address] PFT prior to Xray @ 1130 Xray [facility] Comment on above: PFT prior to Xray @ 1130 Start: 07-30-2025 End: 07-30-2025 ambulatory Pulmonary Medicine [facility] Comment on above: Xray after PFTs @ 1145 // LD Start: 07-17-2025 End: 07-17-2025 Patient encounter procedure 07/17/2025 10:55 AM EDT Office Visit Gastroenterology [address] [address] Merlin Loredo MD [address] [place] [address] Liver disease [K76.9] Gastroenterology Comment on above: Liver disease [K76.9] Start: 07-17-2025 End: 07-17-2025 Patient encounter procedure 07/17/2025 9:45 AM EDT Appointment Radiology [address] [address] Liver disease [K76.9] Radiology Comment on above: Liver disease [K76.9] Start: 07-16-2025 End: 11-30-2025 aPTT in Platelet poor plasma by Coagulation assay ACTIVATED PARTIAL THROMBOPLASTIN TIME Lab Routine Preoperative examination Non-recurrent unilateral inguinal hernia without obstruction or gangrene Abnormal coagulation profile Expected: 07/16/2025, Expires: 11/30/2025 [facility] Comment on above: Expected: 07/16/2025, Expires: Start: 07-16-2025 End: 08-15-2025 CBC panel - Blood by Automated count COMPLETE BLOOD COUNT Lab Routine Liver disease Expected: 07/16/2025, Expires: 08/15/2025 [facility] Comment on above: Expected: 07/16/2025, Expires: Start: 07-16-2025 End: 11-30-2025 CBC W Auto Differential panel - Blood COMPLETE BLOOD COUNT AND DIFFERENTIAL Lab Routine Preoperative examination Non-recurrent unilateral inguinal hernia without obstruction or gangrene Expected: 07/16/2025, Expires: 11/30/2025 [facility] Comment on above: Expected: 07/16/2025, Expires: Start: 07-16-2025 End: 11-30-2025 Comprehensive metabolic 2000 panel - Serum or Plasma [facility] Work Phone: Comment on above: Expected: 07/16/2025, Expires: Expected: 07/16/2025 , Expires: 11/30/2025 Start: 07-16-2025 End: 11-30-2025 PT panel - Platelet poor plasma by Coagulation assay [facility] Comment on above: Expected: 07/16/2025, Expires: Expected: 07/16/2025 , Expires: 11/30/2025 Start: 07-16-2025 End: 11-30-2025 TYPE AND SCREEN,30 DAY TYPE AND SCREEN,30 DAY Blood Bank Routine Preoperative examination Non-recurrent unilateral inguinal hernia without obstruction or gangrene Expected: 07/16/2025, Expires: 11/30/2025 [facility] Comment on above: Expected: 07/16/2025, Expires: Start: 07-16-2025 End: 08-15-2025 US Abdomen RUQ US ABD RIGHT UPPER QUADRANT Radiology Routine Liver disease Expected: 07/16/2025, Expires: 08/15/2025 [facility] Comment on above: Expected: 07/16/2025, Expires: Start: 07-08-2025 Influenza vaccination [facility] Start: 05-29-2025 End: 05-29-2025 Infusion Center 05/29/2025 2:00 PM EDT Infusion Center Hematology/Oncology [address] [place], [place] [id number] Wstr, Injection [facility] [address] [place], [place] [id number] Q3MO LUPRON/Q6MO PROLIA/ORDERING PROV DR BHATIA/DEWAYNER* Hematology/Oncology Comment on above: Q3MO LUPRON/Q6MO PROLIA/ORDERING PROV DR BHATIA/MDCR* Start: 05-01-2025 BP Controlled (<130/80) BP Controlled (<130/80) [facility] Start: 04-10-2025 Creatinine measurement Serum Creatinine [facility] Start: 03-21-2025 BP Controlled (<130/80) BP Controlled (<130/80) [facility] Start: 03-14-2025 BP Controlled (<130/80) BP Controlled (<130/80) [facility] in Start: 03-13-2025 End: 03-13-2025 Follow-up encounter 03/13/2025 11:30 AM EDT Visit (SP) Office Hematology/Oncology [address] [place] [id number] Jonnathan Kothari DO [address] [place] [address] 6MO FOLLOW UP* (SCHED INJECTION SAME DAY) Hematology/Oncology Comment on above: 6MO FOLLOW UP* (SCHED INJECTION SAME DAY ) Start: 03-06-2025 End: 03-06-2025 ambulatory 03/06/2025 3:30 PM EDT Infusion Center Hematology/Oncology [address] [place] [id number] Wstr, Injection [facility] [address] [place] [id number] Q3MO LUPRON/MDCR* Hematology/Oncology Comment on above: Q3MO LUPRON/MDCR* Start: 03-06-2025 End: 03-06-2025 ambulatory Hematology/Oncology Comment on above: 6 MO OV/INJ TODAY* Q3MO LUPRON/OV EARLY /MDCR* Start: 02-27-2025 Covid-19 Vaccine ( season) Covid-19 Vaccine () [facility] Start: 02-27-2025 End: 02-27-2025 Patient encounter procedure Radiology Comment on above: Liver disease [K76.9] Start: 02-14-2025 Complete blood count Hemoglobin/Hematocrit [facility] Start: 02-14-2025 Creatinine measurement Serum Creatinine [facility] Start: 02-13-2025 End: 02-13-2025 Patient encounter procedure Radiology Comment on above: Liver disease [K76.9] Start: 12-22-2024 Creatinine measurement Serum Creatinine [facility] Start: 12-12-2024 End: 12-12-2024 Infusion Center 12/12/2024 2:45 PM [facility] Infusion Center Hematology/Oncology [address] [place] [address] Wstr, Injection [facility] [address] [place] [address] Q3MO LUPRON/MDCR PSA/Q6MO PROLIA/ORDERING PROV DR BHATIA/CLINT* - this date due to transportation Hematology/Oncology Comment on above: Q3MO LUPRON/MDCR PSA/Q6MO PROLIA/ORDERIN G PROV DR BHATIA/CLINT* - this date due to transportation Start: 12-01-2024 BP Controlled (<130/80) BP Controlled (<130/80) [facility] Start: 11-28-2024 End: 11-28-2024 Infusion Center 11/28/2024 2:00 PM [facility] Infusion Center Hematology/Oncology [address] [place] [address] Wstr, Injection [facility]ish c [address] [place] [address] Q3MO LUPRON/MDCR PSA/Q6MO PROLIA/ORDERING PROV DR BHATIA/CLINT* - this date due to transportation Hematology/Oncology Comment on above: Q3MO LUPRON/MDCR PSA/Q6MO PROLIA/ORDERIN G PROV DR BHATIA/CLINT* - this date due to transportation Start: 11-07-2024 Advance Directive Discussion Advance Directive Discussion [facility] Start: 09-28-2024 BP Controlled (<130/80) BP Controlled (<130/80) [facility] Start: 09-19-2024 End: 09-19-2024 ambulatory 09/19/2024 3:30 PM [facility] Hematology/Oncology [address] [place] [address] Wstr, Injection [facility] [address] [place] [address] Q3MO LUPRON/MDCR* Hematology/Oncology Comment on above: Q3MO LUPRON/MDCR* Start: 09-05-2024 End: 09-05-2024 ambulatory Marlena Rubalcava [facility] Comment on above: PSA* PSA/6 MO OV/LUPRON T CAMPBELL* Q3MO LUPRON/MDCR* Start: 08-28-2024 End: 11-27-2024 CBC panel - Blood by Automated count COMPLETE BLOOD COUNT Lab Routine Liver disease Expected: 08/28/2024, Expires: 11/27/2024 [facility] Comment on above: Expected: 08/28/2024, Expires: Start: 08-28-2024 End: 11-27-2024 Comprehensive metabolic 2000 panel - Serum or Plasma COMPREHENSIVE METABOLIC PANEL Lab Routine Liver disease Expected: 08/28/2024, Expires: 11/27/2024 [facility] Work Phone: Comment on above: Expected: 08/28/2024, Expires: Start: 08-28-2024 End: 11-27-2024 PT panel - Platelet poor plasma by Coagulation assay PROTHROMBIN TIME Lab Routine Liver disease Expected: 08/28/2024, Expires: 11/27/2024 [facility] Comment on above: Expected: 08/28/2024, Expires: 5 Start: 08-28-2024 End: 08-28-2024 Patient encounter procedure Gastroenterology Comment on above: Liver disease [K76.9] US ABD RIGHT UPPER Q UADRANT FOLLOW UP TESTING/LI CHUNG Start: 08-28-2024 End: 08-28-2024 ambulatory [facility] Comment on above: LABS Liver disease [K76.9 ] Start: 08-22-2024 End: 08-22-2024 Patient encounter procedure 08/22/2024 10:30 AM EDT Appointment Gastroenterology [address] [place] [id number] lAfred Mariee MD [address] [place] [address] Liver disease [K76.9] Gastroenterology Comment on above: Liver disease [K76.9] Start: 08-21-2024 End: 08-21-2024 Patient encounter procedure 08/21/2024 3:30 PM EDT Office Visit Gastroenterology [address] [place] [id number] Merlin Loredo MD [address] [place] [address] FOLLOW UP TESTING/LIVER Gastroenterology Comment on above: FOLLOW UP TESTING/LIVER Start: 08-21-2024 End: 08-21-2024 ambulatory Gastroenterology Comment on above: Liver disease [K76.9] LABS Start: 08-21-2024 End: 08-21-2024 Patient encounter procedure 08/21/2024 10:30 AM EDT Appointment Radiology [address] [address] Liver disease [K76.9] Radiology Comment on above: Liver disease [K76.9] Start: 08-14-2024 End: 09-14-2024 CBC panel - Blood by Automated count COMPLETE BLOOD COUNT Lab Routine Liver disease Expected: 08/14/2024, Expires: 09/14/2024 [facility] Comment on above: Expected: 08/14/2024, Expires: Start: 08-14-2024 End: 09-14-2024 Comprehensive metabolic 2000 panel - Serum or Plasma COMPREHENSIVE METABOLIC PANEL Lab Routine Liver disease Expected: 08/14/2024, Expires: 09/14/2024 [facility] Comment on above: Expected: 08/14/2024, Expires: Start: 08-14-2024 End: 09-14-2024 EGD - THERAPEUTIC, EUS, OR TUBE INTERVENTIONS EGD - THERAPEUTIC, EUS, OR TUBE INTERVENTIONS Endoscopy Routine Liver disease Expected: 08/14/2024, Expires: 09/14/2024 [facility] Work Phone: Comment on above: Expected: 08/14/2024, Expires: Start: 08-14-2024 End: 09-14-2024 Liver ultrasound attenuation by transient elastography DDI VIBRATION CONTROLLED TRANSIENT ELASTOGRAPHY (VCTE) Endoscopy Routine Liver disease Expected: 08/14/2024, Expires: 09/14/2024 [facility] Comment on above: Expected: 08/14/2024, Expires: Start: 08-14-2024 End: 09-14-2024 PT panel - Platelet poor plasma by Coagulation assay PROTHROMBIN TIME Lab Routine Liver disease Expected: 08/14/2024, Expires: 09/14/2024 [facility] Comment on above: Expected: 08/14/2024, Expires: Start: 08-14-2024 End: 09-14-2024 US Abdomen RUQ US ABD RIGHT UPPER QUADRANT Radiology Routine Liver disease Expected: 08/14/2024, Expires: 09/14/2024 [facility] Comment on above: Expected: 08/14/2024, Expires: Start: 07-19-2024 End: 07-19-2024 Patient encounter procedure 07/19/2024 11:30 AM EDT Office Visit [facility] [address] [place] [address] Leif Mathis MD [address] [facility] [address] [place] [address] r hip pain [facility] Comment on above: r hip pain Start: 07-08-2024 Covid-19 Vaccine ( season) Covid-19 Vaccine () [facility] Start: 07-08-2024 Influenza vaccination [facility] Start: 06-20-2024 End: 06-20-2024 ambulatory 06/20/2024 10:45 AM EDT [facility] Hematology/Oncology [address] [place] [address] Wstr, Injection [facility] [address] [place] [address] Q3MO LUPRON/MDCR PSA* Hematology/Oncology Comment on above: Q3MO LUPRON/MDCR PSA* Start: 06-13-2024 End: 06-13-2024 Patient encounter procedure 06/13/2024 2:20 PM EDT Office Visit Orthopaedics [address] [place] [address] Maximo Watkins MD [address] [place] [address] RIGHT HIP PAIN Orthopaedics Comment on above: RIGHT HIP PAIN Start: 06-13-2024 End: 06-13-2024 ambulatory 06/13/2024 11:15 AM EDT Infusion Center Hematology/Oncology [address] [place] [address] Wstr, Injection Satish c [address] [place] [address] Q3MO LUPRON/MDCR* Hematology/Oncology Comment on above: Q3MO LUPRON/MDCR* Start: 2024 End: 2024 Infusion Center 2024 9:15 AM EDT Infusion Center Hematology/Oncology [address] [place] [address] Wstr, Injection [facility] [address] [place] [address] START Q? PROLIA/11-07?/ORDERING PROV DR BHATIA/AUTH EXP?* Hematology/Oncology Comment on above: START Q? PROLIA/11-07?/ORDERING PROV DR RUPA SHELDON/AUTH EXP?* Start: 05-28-2024 End: 05-28-2024 Patient encounter procedure 05/28/2024 3:30 PM EDT Office Visit Orthopaedics [address] [place] [address] Newton Daily MD [address] [place] [address] //POA WILL FAX RECORDS/// Orthopaedics Comment on above: //POA WILL FAX RECORDS/// Start: 05-23-2024 End: 05-23-2024 Patient encounter procedure 05/23/2024 2:40 PM EDT Office Visit Orthopaedics [address] [address] Maximo Watkins MD [address] [place] [address] RIGHT HIP PAIN Orthopaedics Comment on above: RIGHT HIP PAIN Start: 05-09-2024 End: 05-09-2024 ambulatory 05/09/2024 10:15 AM EDT Results Only Golden Lancaster [facility] [address] [place] [address] Marlena Lancaster [facility] Start: 05-04-2024 End: 08-03-2024 Albumin [Mass/volume] in Serum or Plasma ALBUMIN Lab Routine Age-related osteoporosis without current pathological fracture Hypercalcemia Expected: 05/04/2024, Expires: 08/03/2024 [facility] Comment on above: Expected: 05/04/2024, Expires: Start: 05-04-2024 End: 08-03-2024 Calcium [Mass/volume] in Serum or Plasma CALCIUM, TOTAL Lab Routine Age-related osteoporosis without current pathological fracture Hypercalcemia Expected: 05/04/2024, Expires: 08/03/2024 [facility] Comment on above: Expected: 05/04/2024, Expires: Start: 05-04-2024 End: 08-03-2024 Magnesium [Mass/volume] in Serum or Plasma MAGNESIUM Lab Routine Age-related osteoporosis without current pathological fracture Hypercalcemia Expected: 05/04/2024, Expires: 08/03/2024 [facility] Comment on above: Expected: 05/04/2024, Expires: Start: 05-04-2024 End: 08-03-2024 Parathyrin.intact [Mass/volume] in Serum or Plasma PTH INTACT Lab Routine Age-related osteoporosis without current pathological fracture Hypercalcemia Expected: 05/04/2024, Expires: 08/03/2024 [facility] Comment on above: Expected: 05/04/2024, Expires: Start: 05-04-2024 End: 08-03-2024 Phosphate [Mass/volume] in Serum or Plasma PHOSPHORUS INORGANIC Lab Routine Age-related osteoporosis without current pathological fracture Hypercalcemia Expected: 05/04/2024, Expires: 08/03/2024 [facility] Comment on above: Expected: 05/04/2024, Expires: Start: 05-04-2024 End: 08-03-2024 Thyrotropin [Units/volume] in Serum or Plasma THYROID STIMULATING HORMONE Lab Routine Age-related osteoporosis without current pathological fracture Hypercalcemia Expected: 05/04/2024, Expires: 08/03/2024 [facility] Work Phone: Comment on above: Expected: 05/04/2024, Expires: Start: 05-01-2024 End: 05-01-2024 Patient encounter procedure 05/01/2024 4:20 PM EDT Office Visit Endocrinology [address] [place] [phone] Kourtney Bhatia MD [address] [place] [address] 3 month f/u Endocrinology Comment on above: 3 month f/u Start: 04-18-2024 End: 04-18-2024 Patient encounter procedure Radiology Comment on above: Rt Hip rt hip prvs replmt n ot ccf Start: 04-12-2024 Annual PCP Team Chronic Disease Visit Annual PCP Team Chronic Disease Visit [facility] Start: 04-12-2024 BP CONTROLLED (<130/80) BP CONTROLLED (<130/80) [facility] Start: 04-02-2024 End: 07-02-2024 25-hydroxyvitamin D3 [Mass/volume] in Serum or Plasma VITAMIN D 25 HYDROXY Lab Routine Age-related osteoporosis without current pathological fracture Prostate cancer (HCC) Expected: 04/02/2024, Expires: 07/02/2024 [facility] Work Phone: Comment on above: Expected: 04/02/2024, Expires: Start: 04-02-2024 End: 07-02-2024 Calcium.ionized [Moles/volume] in Blood CALCIUM, IONIZED Lab Routine Age-related osteoporosis without current pathological fracture Prostate cancer (HCC) Expected: 04/02/2024, Expires: 07/02/2024 [facility] Comment on above: Expected: 04/02/2024, Expires: Start: 04-02-2024 End: 07-02-2024 Comprehensive metabolic 2000 panel - Serum or Plasma COMPREHENSIVE METABOLIC PANEL Lab Routine Age-related osteoporosis without current pathological fracture Prostate cancer (HCC) Expected: 04/02/2024, Expires: 07/02/2024 [facility] Comment on above: Expected: 04/02/2024, Expires: Start: 04-02-2024 End: 07-02-2024 Parathyrin related protein [Moles/volume] in Serum or Plasma PTH RELATED PEPTIDE Lab Routine Age-related osteoporosis without current pathological fracture Prostate cancer (HCC) Expected: 04/02/2024, Expires: 07/02/2024 [facility] Comment on above: Expected: 04/02/2024, Expires: Start: 04-02-2024 End: 07-02-2024 Parathyrin.intact [Mass/volume] in Serum or Plasma PTH INTACT Lab Routine Age-related osteoporosis without current pathological fracture Prostate cancer (HCC) Expected: 04/02/2024, Expires: 07/02/2024 [facility] Comment on above: Expected: 04/02/2024, Expires: Start: 03-24-2024 Covid-19 Vaccine () Covid-19 Vaccine () [facility] Start: 03-23-2024 ANNUAL PCP TEAM CHRONIC DISEASE VISIT ANNUAL PCP TEAM CHRONIC DISEASE VISIT [facility] Start: 03-23-2024 BP CONTROLLED (<130/80) BP CONTROLLED (<130/80) [facility] Start: 03-21-2024 End: 05-15-2024 ambulatory [facility] Comment on above: PSA* Q3MO LUPRON/MDCR* PSA/6 MO OV/LUPRON T CAMPBELL* Start: 03-09-2024 BP CONTROLLED (<130/80) BP CONTROLLED (<130/80) [facility] in Start: 03-09-2024 Creatinine measurement Serum Creatinine [facility] Start: 03-09-2024 SERUM CREATININE SERUM CREATININE [facility] Start: 02-07-2024 Colonoscopy COLONOSCOPY [facility] Start: 02-07-2024 COLORECTAL CANCER SCREENING COLORECTAL CANCER SCREENING [facility] Start: 02-07-2024 Screening for malignant neoplasm of colon [facility] Start: 01-06-2024 End: 04-06-2024 Calcium.ionized [Moles/volume] in Blood CALCIUM IONIZED BLOOD Lab Routine Age-related osteoporosis without current pathological fracture Prostate cancer (HCC) Expected: 01/06/2024, Expires: 04/06/2024 [facility] Work Phone: Comment on above: Expected: 01/06/2024, Expires: Start: 01-06-2024 End: 04-06-2024 Comprehensive metabolic 2000 panel - Serum or Plasma COMP METABOLIC PANEL Lab Routine Age-related osteoporosis without current pathological fracture Prostate cancer (HCC) Expected: 01/06/2024, Expires: 04/06/2024 [facility] Work Phone: Comment on above: Expected: 01/06/2024, Expires: 4 Start: 01-06-2024 End: 04-06-2024 Magnesium [Mass/volume] in Serum or Plasma MAGNESIUM BLD Lab Routine Age-related osteoporosis without current pathological fracture Expected: 01/06/2024, Expires: 04/06/2024 [facility] Work Phone: Comment on above: Expected: 01/06/2024, Expires: Start: 01-06-2024 End: 04-06-2024 Parathyrin.intact [Mass/volume] in Serum or Plasma PTH INTACT BLD Lab Routine Age-related osteoporosis without current pathological fracture Prostate cancer (HCC) Expected: 01/06/2024, Expires: 04/06/2024 [facility] Work Phone: Comment on above: Expected: 01/06/2024, Expires: 4 Start: 01-06-2024 End: 04-06-2024 Phosphate [Mass/volume] in Serum or Plasma PHOSPHORUS INORGANIC Lab Routine Age-related osteoporosis without current pathological fracture Expected: 01/06/2024, Expires: 04/06/2024 [facility] Work Phone: Comment on above: Expected: 01/06/2024, Expires: 4 Start: 12-31-2023 Tetanus vaccination Tetanus: Every 10yrs [facility] Start: 12-31-2023 Urine microalbumin profile [facility] Start: 12-22-2023 End: 03-22-2024 OCCUPATIONAL HEALTH EXPOSURE PROFILE/PATIENT [facility] Work Phone: Comment on above: Expected: 12/22/2023, Expires: 4 Start: 11-07-2023 Advance Directive Discussion Advance Directive Discussion [facility] Start: 11-07-2023 Behavioral Health Screening Behavioral Health Screening [facility] Start: 11-07-2023 Depression Assessment Depression Assessment [facility] Start: 10-01-2023 3 comp foot exam completed DIABETIC FOOT EXAM [facility] Start: 10-01-2023 ANNUAL PCP TEAM CHRONIC DISEASE VISIT ANNUAL PCP TEAM CHRONIC DISEASE VISIT [facility] Start: 10-01-2023 BP CONTROLLED (<130/80) BP CONTROLLED (<130/80) [facility] Start: 10-01-2023 Diabetic foot examination Diabetic Foot Exam [facility] Start: 10-01-2023 Influenza vaccination LUNG CANCER SCREENING [facility] Comment on above: Postponed from 2002 (Declined at t his time) Start: 10-01-2023 SHINGRIX VACCINE (1 of 2) SHINGRIX VACCINE (1 of 2) [facility] Comment on above: Postponed from 2002 (Declined at t his time) Start: 09-12-2023 End: 11-12-2023 ALBUMIN/CREAT RATIO RND UR ALBUMIN/CREAT RATIO RND UR Lab Routine Controlled type 2 diabetes mellitus without complication, with long-term current use of insulin (HCC) Expected: 09/12/2023 (Approximate), Expires: 11/12/2023 [facility] Work Phone: Comment on above: Expected: 09/12/2023 (Approximate), Expi res: 11/12/2023 Start: 09-12-2023 End: 10-24-2023 CBC panel - Blood by Automated count CBC Lab Routine Liver disease Expected: 09/12/2023 (Approximate), Expires: 10/24/2023 [facility] Work Phone: Comment on above: Expected: 09/12/2023 (Approximate), Expi res: 10/24/2023 Start: 09-12-2023 End: 10-24-2023 Comprehensive metabolic 2000 panel - Serum or Plasma COMP METABOLIC PANEL Lab Routine Liver disease Expected: 09/12/2023 (Approximate), Expires: 10/24/2023 [facility] Work Phone: Comment on above: Expected: 09/12/2023 (Approximate), Expi res: 10/24/2023 Start: 09-12-2023 End: 11-12-2023 Hemoglobin A1c in Blood HGB A1C Lab Routine Controlled type 2 diabetes mellitus without complication, with long-term current use of insulin (HCC) Essential hypertension, benign Expected: 09/12/2023 (Approximate), Expires: 11/12/2023 [facility] Work Phone: Comment on above: Expected: 09/12/2023 (Approximate), Expi res: 11/12/2023 Start: 09-12-2023 End: 11-12-2023 Lipid 1996 panel - Serum or Plasma LIPID PANEL BASIC Lab Routine Controlled type 2 diabetes mellitus without complication, with long-term current use of insulin (HCC) Essential hypertension, benign Expected: 09/12/2023 (Approximate), Expires: 11/12/2023 [facility] Work Phone: Comment on above: Expected: 09/12/2023 (Approximate), Expi res: 11/12/2023 Start: 09-12-2023 End: 10-24-2023 PT panel - Platelet poor plasma by Coagulation assay PROTHROMBIN TIME/PT Lab Routine Liver disease Expected: 09/12/2023 (Approximate), Expires: 10/24/2023 [facility] Work Phone: Comment on above: Expected: 09/12/2023 (Approximate), Expi res: 10/24/2023 Start: 09-12-2023 End: 10-24-2023 US ABD RIGHT UPPER QUADRANT US ABD RIGHT UPPER QUADRANT Radiology Routine Liver disease Expected: 09/12/2023 (Approximate), Expires: 10/24/2023 [facility] Work Phone: Comment on above: Expected: 09/12/2023 (Approximate), Expi res: 10/24/2023 Start: 09-02-2023 BP CONTROLLED (<130/80) BP CONTROLLED (<130/80) [facility] in Start: 07-08-2023 Covid-19 Vaccine () Covid-19 Vaccine () [facility] Start: 07-08-2023 Influenza vaccination [facility] Start: 06-27-2023 [facility] Start: 06-26-2023 Patient discharge [facility] Start: 06-23-2023 Hemoglobin A1c measurement HbA1C [facility] Start: 06-23-2023 Hemoglobin A1c/Hemoglobin.total in Blood HBA1C [facility] Start: 06-23-2023 Consultation [facility] Start: 06-22-2023 Referral to occupational therapist [facility] Start: 06-22-2023 Referral to service [facility] Start: 06-22-2023 Verification routine [facility] Start: 06-21-2023 Assessment of risk of venous thromboembolism [facility] Start: 06-21-2023 Care regimes management [facility] Start: 06-21-2023 Insertion of catheter into peripheral vein [facility] Start: 06-21-2023 Notification of physician [facility] Start: 06-21-2023 Providing care according to standard [facility] Start: 06-21-2023 Referral to service [facility] Start: 06-21-2023 [facility] Start: 06-21-2023 Following clinical pathway protocol [facility] Start: 06-21-2023 Admission procedure [facility] Start: 04-28-2023 ANNUAL PCP TEAM CHRONIC DISEASE VISIT ANNUAL PCP TEAM CHRONIC DISEASE VISIT [facility] Start: 04-28-2023 BP CONTROLLED (<130/80) BP CONTROLLED (<130/80) [facility] Start: 04-25-2023 Patient discharge [facility] Start: 04-24-2023 End: 04-25-2023 [facility] Start: 04-23-2023 Following clinical pathway protocol [facility] Start: 04-23-2023 Assessment of risk of venous thromboembolism [facility] Start: 04-23-2023 Insertion of catheter into peripheral vein [facility] Start: 04-23-2023 Measuring intake and output [facility] Start: 04-23-2023 Oxygen therapy [facility] Start: 04-23-2023 Providing care according to standard [facility] Start: 04-23-2023 Provision of activity privileges [facility] Start: 04-23-2023 Referral to occupational therapist [facility] Start: 04-23-2023 Referral to service [facility] Start: 04-23-2023 [facility] Start: 04-23-2023 Pelvis X-ray Pelvis 1 or 2 Views [facility] Start: 04-23-2023 XR Pelvis 1 or 2 Views [facility] Start: 04-23-2023 Verification routine [facility] Start: 04-23-2023 Admission procedure [facility] Start: 04-23-2023 CT angiography of chest with contrast CTA Chest W/WO Contrast [facility] Start: 04-23-2023 CTA Chest vessels WO and W contrast IV [facility] Start: 04-23-2023 [facility] Start: 04-19-2023 Blood chemistry [facility] Start: 04-18-2023 Blood chemistry [facility] Start: 04-17-2023 Blood chemistry [facility] Start: 04-16-2023 Patient discharge [facility] Start: 04-16-2023 Blood chemistry [facility] Start: 04-15-2023 Blood chemistry [facility] Start: 04-14-2023 Blood chemistry [facility] Start: 04-13-2023 Ambulation without limitation [facility] Start: 04-13-2023 Assessment of risk of venous thromboembolism [facility] Start: 04-13-2023 Care regimes management [facility] Start: 04-13-2023 Insertion of catheter into peripheral vein [facility] Start: 04-13-2023 Measuring intake and output [facility] Start: 04-13-2023 Notification of physician [facility] Start: 04-13-2023 Oxygen therapy [facility] Start: 04-13-2023 Providing care according to standard [facility] Start: 04-13-2023 Referral to occupational therapist [facility] Start: 04-13-2023 Referral to service [facility] Start: 04-13-2023 Following clinical pathway protocol [facility] Start: 04-13-2023 End: 04-13-2023 [facility] Start: 04-13-2023 Verification routine [facility] Start: 04-13-2023 Admission procedure [facility] Start: 04-13-2023 [facility] Start: 04-13-2023 Blood chemistry [facility] Start: 04-12-2023 Patient discharge [facility] Start: 04-11-2023 Referral to service [facility] Start: 04-10-2023 End: 04-11-2023 [facility] Start: 04-10-2023 Following clinical pathway protocol [facility] Start: 04-10-2023 Ambulation without limitation [facility] Start: 04-10-2023 Assessment of risk of venous thromboembolism [facility] Start: 04-10-2023 Care regimes management [facility] Start: 04-10-2023 Inhalation therapy procedure [facility] Start: 04-10-2023 Insertion of catheter into peripheral vein [facility] Start: 04-10-2023 Measuring intake and output [facility] Start: 04-10-2023 Oxygen therapy [facility] Start: 04-10-2023 Providing care according to standard [facility] Start: 04-10-2023 Provision of activity privileges [facility] Start: 04-10-2023 Referral to occupational therapist [facility] Start: 04-10-2023 Referral to service [facility] Start: 04-10-2023 Admission procedure [facility] Start: 04-10-2023 Emergency dept visit high severity&threat funcj [facility] Start: 04-10-2023 Iv infusion hydration initial 31 min-1 hour [facility] Start: 03-31-2023 Hemoglobin A1c/Hemoglobin.total in Blood HBA1C [facility] Start: 01-29-2023 COVID-19 VACCINE (6 - Pfizer series) COVID-19 VACCINE (6 - Pfizer series) [facility] Start: 01-12-2023 ANNUAL PCP TEAM CHRONIC DISEASE VISIT ANNUAL PCP TEAM CHRONIC DISEASE VISIT [facility] Start: 12-23-2022 Patient referral [facility] Work Phone: Start: 11-07-2022 ADVANCE DIRECTIVE DISCUSSION ADVANCE DIRECTIVE DISCUSSION [facility] Start: 11-07-2022 DEPRESSION ASSESSMENT DEPRESSION ASSESSMENT [facility] Start: 10-28-2022 Hemoglobin A1c/Hemoglobin.total in Blood HBA1C [facility] Start: 09-25-2022 ANNUAL PCP TEAM CHRONIC DISEASE VISIT ANNUAL PCP TEAM CHRONIC DISEASE VISIT [facility] Start: 08-09-2022 Serum immunofixation [facility] Work Phone: Start: 08-09-2022 Urine immunofixation [facility] Work Phone: Start: 07-10-2022 Hemoglobin A1c measurement A1C [facility] Start: 07-08-2022 Influenza vaccination [facility] Start: 06-25-2022 COVID-19 Vaccine (5 - Booster for Pfizer series) COVID-19 Vaccine (5 - Booster for Pfizer series) [facility] Start: 06-15-2022 End: 06-15-2022 Patient encounter procedure 06/15/2022 Office Visit Orthopedic Surgery Munira Dickerson MD [address] [place] [address] [facility] Start: 05-24-2022 [place] and lambda light chains [facility] Work Phone: Start: 05-24-2022 Thiamine measurement [facility] Work Phone: Start: 05-11-2022 End: 05-11-2022 Patient encounter procedure 05/11/2022 Office Visit Orthopedic Surgery Munira Dickerson MD [address] [place] [address] [facility] Start: 05-05-2022 End: 05-05-2022 Patient encounter procedure 05/05/2022 Appointment Radiology Munira Dickerson MD [address] [place] [address] [facility] Start: 05-04-2022 End: 05-04-2022 Patient encounter procedure 05/04/2022 Office Visit Orthopedic Surgery Munira Dickerson MD [address] [place] [address] [facility] Start: 04-27-2022 Patient discharge [facility] Work Phone: Start: 04-26-2022 Referral to occupational therapist [facility] Work Phone: Start: 04-26-2022 Referral to service [facility] Work Phone: Start: 04-26-2022 Oxygen therapy [facility] Work Phone: Start: 04-25-2022 Assessment of risk of venous thromboembolism [facility] Work Phone: Start: 04-25-2022 Care regimes management [facility] Work Phone: Start: 04-25-2022 Elevation of affected extremity [facility] Work Phone: Start: 04-25-2022 Insertion of catheter into peripheral vein [facility] Work Phone: Start: 04-25-2022 Measuring intake and output [facility] Work Phone: Start: 04-25-2022 Notification of physician [facility] Work Phone: Start: 04-25-2022 Patient education [facility] Work Phone: Start: 04-25-2022 Providing care according to standard [facility] Work Phone: Start: 04-25-2022 Provision of activity privileges [facility] Work Phone: Start: 04-25-2022 [facility] Work Phone: Start: 04-25-2022 Following clinical pathway protocol [facility] Work Phone: Start: 04-25-2022 Admission procedure [facility] Work Phone: Start: 04-20-2022 COVID-19 VACCINE (5 - Booster for Pfizer series) COVID-19 VACCINE (5 - Booster for Pfizer series) [facility] Start: 04-15-2022 Development of care plan [facility] Work Phone: Start: 04-14-2022 Patient discharge [facility] Work Phone: Start: 04-13-2022 Oxygen therapy [facility] Work Phone: Start: 04-09-2022 Hemoglobin A1c measurement A1C [facility] Start: 04-09-2022 Hemoglobin A1c/Hemoglobin.total in Blood HBA1C [facility] Start: 04-03-2022 3 comp foot exam completed DIABETIC FOOT EXAM [facility] Start: 04-03-2022 Adult depression screening assessment DEPRESSION SCREENING [facility] Start: 04-03-2022 SHINGRIX VACCINE (1 of 2) SHINGRIX VACCINE (1 of 2) [facility] Comment on above: Postponed from 2002 (Declined at t his time) Start: 04-01-2022 Referral to service [facility] Work Phone: Start: 03-31-2022 Development of care plan [facility] Work Phone: Start: 03-31-2022 Administration of blood product [facility] Work Phone: Start: 03-31-2022 [facility] Work Phone: Start: 03-30-2022 Administration of blood product [facility] Work Phone: Start: 03-26-2022 Hepatitis B surface antibody level LDL CHOLESTEROL [facility] Start: 03-24-2022 [facility] Work Phone: Start: 03-23-2022 End: 03-23-2022 Patient encounter procedure 03/23/2022 Office Visit Orthopedic Surgery Munira Dickerson MD [address] [place] [address] [facility] Start: 03-19-2022 Speech therapy management [facility] Work Phone: Start: 03-18-2022 Introduction of urinary catheter [facility] Work Phone: Start: 03-18-2022 [facility] Work Phone: Start: 03-17-2022 End: 03-17-2022 Developing a treatment plan [facility] Work Phone: Start: 03-16-2022 [facility] Work Phone: Start: 03-16-2022 [facility] Work Phone: Start: 03-11-2022 Consultation for pain [facility] Work Phone: Start: 03-02-2022 Following clinical pathway protocol [facility] Work Phone: Start: 03-01-2022 End: 03-01-2022 Patient encounter procedure 03/01/2022 Office Visit Orthopedic Surgery Munira Dickerson MD [address] [place] [address] [facility] Start: 02-25-2022 [facility] Work Phone: Start: 02-24-2022 Skin care [facility] Work Phone: Start: 02-22-2022 [facility] Work Phone: Start: 02-20-2022 Speech therapy management [facility] Work Phone: Start: 02-20-2022 Seizure precautions [facility] Work Phone: Start: 02-19-2022 Patient referral to dietitian [facility] Work Phone: Start: 02-19-2022 Development of care plan [facility] Work Phone: Start: 02-19-2022 Developing a treatment plan [facility] Work Phone: Start: 02-19-2022 Speech therapy assessment [facility] Work Phone: Start: 02-19-2022 Admission procedure [facility] Work Phone: Start: 02-19-2022 Measuring intake and output [facility] Work Phone: Start: 02-19-2022 Patient referral to dietitian [facility] Work Phone: Start: 02-19-2022 Referral to occupational therapist [facility] Work Phone: Start: 02-19-2022 Referral to service [facility] Work Phone: Start: 02-19-2022 Vital signs measurements [facility] Work Phone: Start: 02-19-2022 [facility] Work Phone: Start: 02-19-2022 Provision of activity privileges [facility] Work Phone: Start: 02-10-2022 Bacteria identified in Blood by Culture Blood Culture [facility] Work Phone: Start: 02-05-2022 COVID-19 VACCINE (4 - Booster for Pfizer series) COVID-19 VACCINE (4 - Booster for Pfizer series) [facility] Start: 01-06-2022 Anesthesia anorectal procedure ANESTH ANORECTAL SURGERY [facility] Work Phone: Start: 01-06-2022 Plmt interstitial dev radiat tx prostate 1/mult PLACE RT DEVICE/MARKER PROS [facility] Work Phone: Start: 01-06-2022 Transperineal plmt biodegradable matrl 1/ship fastener njx TPRNL PLMT BIODEGRDABL MATRL [facility] Work Phone: Start: 01-06-2022 Ambulation without limitation [facility] Work Phone: Start: 01-06-2022 Medication education [facility] Work Phone: Start: 01-06-2022 Patient discharge [facility] Work Phone: Start: 01-06-2022 Taking patient vital signs [facility] Work Phone: Start: 01-06-2022 [facility] Work Phone: Start: 01-05-2022 COVID-19 Vaccine (4 - Booster for Pfizer series) COVID-19 Vaccine (4 - Booster for Pfizer series) [facility] Start: 11-07-2021 ADVANCE DIRECTIVE DISCUSSION ADVANCE DIRECTIVE DISCUSSION [facility] Start: 11-07-2021 DEPRESSION ASSESSMENT DEPRESSION ASSESSMENT [facility] Start: 11-06-2020 Hepatitis B screening URINE ALBUMIN:CREATININE RATIO [facility] Start: 08-23-2017 Glaucoma screening Dilated Retinal Exam [facility] Start: 08-23-2017 Hepatitis C antibody, confirmatory test DILATED RETINAL EXAM [facility] Start: 2017 Fall risk assessment Falls Risk Assessment [facility] Start: 12-08-2013 Medicare Annual Wellness Visit Medicare Annual Wellness Visit [facility] Start: 2012 RSV Vaccine (1 - 1-dose 60+ series) RSV Vaccine (1 - 1-dose 60+ series) [facility] Start: 2012 RSV Vaccine (1 - Risk 60-74 years 1-dose series) RSV Vaccine (1 - Risk 60-74 years 1-dose series) [facility] Start: 2002 Influenza vaccination LUNG CANCER SCREENING [facility] Start: 2002 Screening for malignant neoplasm of colon [facility] Start: 2002 Screening for malignant neoplasm of lung Lung Cancer Screening [facility] Start: 2002 SHINGRIX VACCINE (1 of 2) SHINGRIX VACCINE (1 of 2) [facility] Start: 1997 COLOGUARD (FIT-DNA) COLOGUARD (FIT-DNA) [facility] Start: [address] COLONOGRAPHY [facility] Start: 1997 FECAL OCCULT BLOOD FECAL OCCULT BLOOD [facility] Start: 1997 Screening for malignant neoplasm of colon [facility] Start: 1997 SIGMOIDOSCOPY SIGMOIDOSCOPY [facility] Start: 1971 Administration of herpes zoster vaccine Zoster Vaccines (1 of 2) [facility] Start: 1971 SHINGRIX VACCINE (1 of 2) SHINGRIX VACCINE (1 of 2) [facility] Start: 1970 Anxiety Screening Anxiety Screening [facility] Start: 1970 BP CONTROLLED (<130/80) [facility] Start: 1970 Depression Screening Depression Screening [facility] Start: 1970 Hepatitis C screening Hepatitis C Screening [facility] Start: 1964 Depression screening using PHQ-9 (Patient Health Questionnaire 9) score Depression Screening (PHQ-2/9) [facility] Start: 1962 Diabetic foot examination Foot Exam [facility] Start: 1962 Microalbumin measurement, urine, quantitative Urine Microalbumin [facility] Start: 1962 Ophthalmic examination and evaluation Ophthalmology Exam [facility] Start: 1958 PNEUMOCOCCAL: 65+ (1 - PCV) PNEUMOCOCCAL: 65+ (1 - PCV) [facility] Start: 1955 History and physical examination, annual for health maintenance Wellness Visit [facility] Start: 1952 Prostate specific antigen measurement PSA Level [facility] Start: 1952 Screening for malignant neoplasm of colon [facility] Albumin [Moles/volum e] in Serum or Plasma [facility] Work Phone: Albumin/Globulin ratio [facility] Work Phone: Anion gap measurement [facility] Ankle brachial press ure index [facility] Work Phone: BUN/Creatinine ratio [facility] Calcium [Mass/volume ] in Serum or Plasma [facility] Carbon dioxide, tota l [Moles/volume] in Serum or Plasma [facility] End: 09-02-2023 CBC panel - Blood by Automated count CBC Lab Routine Liver disease Every 6 months for 2 Occurrences starting 09/02/2022 until 09/02/2023 [facility] Work Phone: Comment on above: Every 6 months for 2 Occurrences startin g 09/02/2022 until 09/02/2023 Chloride [Moles/volu me] in Serum or Plasma [facility] End: 09-02-2023 Comprehensive metabolic 2000 panel - Serum or Plasma COMP METABOLIC PANEL Lab Routine Liver disease Every 6 months for 2 Occurrences starting 09/02/2022 until 09/02/2023 [facility] Work Phone: Comment on above: Every 6 months for 2 Occurrences startin g 09/02/2022 until 09/02/2023 Creatinine [Moles/volume] in Serum or Plasma [facility] CT Lumbar spine [facility] Work Phone: CT Unspecified body region [facility] Work Phone: End: 05-17-2026 ECG COMPLETE ECG COMPLETE ECG Routine Preoperative examination Non-recurrent unilateral inguinal hernia without obstruction or gangrene 1 Occurrences starting 05/17/2025 until 05/17/2026 [facility] Comment on above: 1 Occurrences starting 05/17/2025 until 05/17/2026 Electrophoresis: [id number] [facility] Work Phone: Electrophoresis: teddy ma globulin [facility] Work Phone: Globulin measurement [facility] Work Phone: Glucose [Mass/volume ] in Serum or Plasma [facility] Hematocrit [Volume Fraction] of Blood [facility] Hematocrit [Volume Fraction] of Blood [facility] Hematocrit [Volume Fraction] of Blood [facility] Hematocrit [Volume Fraction] of [facility] Hemoglobin [Mass/volume] in Blood [facility] Hemoglobin [Mass/volume] in Blood [facility] Hemoglobin [Mass/volume] in Blood [facility] Hemoglobin [Mass/volume] in Blood [facility] IgA [Mass/volume] in Serum or Plasma [facility] Work Phone: IgG [Mass/volume] in Serum or Plasma [facility] Work Phone: IgM [Mass/volume] in Serum or Plasma [facility] Work Phone: [place]leck/lambda light chain ratio [facility] Work Phone: Lambda light chains.free [Mass/volume] in Serum or Plasma [facility] Work Phone: Laparoscopy surg rpr initial inguinal hernia LAPAROSCOPY SURGICAL REPAIR INITIAL INGUINAL HERNIA W/ MESH Preoperative examination Non-recurrent unilateral inguinal hernia without obstruction or gangrene [facility] Leukocytes [#/volume ] in Blood [facility] Leukocytes [#/volume ] in Blood [facility] Leukocytes [#/volume ] in Blood [facility] Leukocytes [#/volume ] in Blood [facility] Magnesium [Mass/volu me] in Serum or Plasma [facility] Mean corpuscular hemoglobin concentration determination [facility] Mean corpuscular hemoglobin concentration determination [facility] Mean corpuscular hemoglobin concentration determination [facility] Mean corpuscular hemoglobin concentration determination [facility] Mean corpuscular hemoglobin determination [facility] Mean corpuscular hemoglobin determination [facility] Mean corpuscular hemoglobin determination [facility] Mean corpuscular hemoglobin determination [facility] Measurement of renal function [facility] End: 03-30-2023 MRI of lumbar spine without contrast MR Lumbar Spine Without Contrast Imaging Routine Low back pain without sciatica, unspecified back pain laterality, unspecified chronicity 1 Occurrences starting 03/30/2022 until 03/30/2023 [facility] Work Phone: Comment on above: 1 Occurrences starting 03/30/2022 until 03/30/2023 Natriuretic peptide B NATRIURETI C PEPTID B/O Lab Routine Preoperative examination Ordered: 07/17/2025 [facility] Work Phone: Comment on above: Ordered: 07/17/2025 Neutrophil count [facility] Neutrophil count [facility] Neutrophil count [facility] Neutrophil count [facility] Neutrophil percent differential count [facility] Neutrophil percent differential count [facility] Neutrophil percent differential count [facility] Neutrophil percent differential count [facility] Patient Education [facility] Work Phone: Patient referral [facility] Work Phone: Platelets [#/volume] in Blood [facility] Platelets [#/volume] in Blood [facility] Platelets [#/volume] in Blood [facility] Platelets [#/volume] in Blood [facility] Potassium [Moles/volume] in Serum or Plasma [facility] End: 12-19-2024 Prostate specific Ag [Mass/volume] in Serum or Plasma PSA/PROSTSPECAG DIAG Lab Routine Prostate cancer (HCC) 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) Every 3 months for 4 Occurrences starting 12/20/2023 until 12/19/2024 [facility] Work Phone: Comment on above: Every 3 months for 4 Occurrences startin g 12/20/2023 until 12/19/2024 Prostate specific antigen measurement [facility] Work Phone: Protein electrophore sis panel - Serum or Plasma [facility] Work Phone: End: 09-02-2023 PT panel - Platelet poor plasma by Coagulation assay PROTHROMBIN TIME/PT Lab Routine Liver disease Every 6 months for 2 Occurrences starting 09/02/2022 until 09/02/2023 [facility] Work Phone: Comment on above: Every 6 months for 2 Occurrences startin g 09/02/2022 until 09/02/2023 Red blood cell count [facility] Red blood cell count [facility] Red blood cell count [facility] Red blood cell count [facility] Red cell distributio n width determination [facility] Red cell distributio n width determination [facility] Red cell distributio n width determination [facility] Red cell distributio n width determination [facility] REFER FOR ADMIT INTERVIEW REFER FOR ADMIT INTERVIEW Procedures Routine Preoperative examination Non-recurrent unilateral inguinal hernia without obstruction or gangrene Ordered: 05/17/2025 [facility] Work Phone: Comment on above: Ordered: 05/17/2025 Serum protein electrophoresis [facility] Work Phone: SIX MINUTE WALK SIX MINUTE WALK PFT Routine Primary pulmonary hypertension (HCC) Ordered: 07/17/2025 [facility] Work Phone: Comment on above: Ordered: 07/17/2025 Sodium [Moles/volume ] in Serum or Plasma [facility] Thiamine measurement [facility] Work Phone: Urea nitrogen [Mass/volume] in Serum or Plasma [facility] Urine immunofixation [facility] Work Phone: Urine kappa light ch ain measurement [facility] Work Phone: End: 09-27-2025 US Abdomen RUQ US ABD RIGHT UPPER QUADRANT Radiology Routine Liver disease 1 Occurrences starting 08/28/2024 until 09/27/2025 [facility] Comment on above: 1 Occurrences starting 08/28/2024 until 09/27/2025 End: 10-02-2023 Us abdominal real time w/image limited US ABD RT UPPER QUADRANT Radiology Routine Liver disease Every 6 months for 4 Occurrences starting 09/02/2022 until 10/02/2023, 1 completed [facility] Work Phone: Comment on above: Every 6 months for 4 Occurrences startin g 09/02/2022 until 10/02/2023, 1 completed US Carotid arteries [facility] Work Phone: End: 02-19-2023 XR Hip Right 2-3 Views (Routine) XR Hip Right 2-3 Views (Routine) Imaging Routine Hip fracture requiring operative repair, right, closed, initial encounter (HCC) Status post hip hemiarthroplasty 1 Occurrences starting 02/19/2022 until 02/19/2023 [facility] Work Phone: Comment on above: 1 Occurrences starting 02/19/2022 until 02/19/2023 End: 03-18-2023 XR Hip Right 2-3 Views (Routine) XR Hip Right 2-3 Views (Routine) Imaging Routine Pain 1 Occurrences starting 03/18/2022 until 03/18/2023 [facility] Work Phone: Comment on above: 1 Occurrences starting 03/18/2022 until 03/18/2023 End: 04-26-2023 XR Hip Right With Pelvis 2-3 Views (Routine) XR Hip Right With Pelvis 2-3 Views (Routine) Imaging Routine Pain 1 Occurrences starting 04/26/2022 until 04/26/2023 [facility] Work Phone: Comment on above: 1 Occurrences starting 04/26/2022 until 04/26/2023 End: 06-03-2023 XR Hip Right With Pelvis 2-3 Views (Routine) XR Hip Right With Pelvis 2-3 Views (Routine) Imaging Routine Hip fracture requiring operative repair, right, closed, initial encounter (HCC) Status post hip hemiarthroplasty 1 Occurrences starting 06/03/2022 until 06/03/2023 [facility] Work Phone: Comment on above: 1 Occurrences starting 06/03/2022 until 06/03/2023 End: 03-23-2023 XR Lumbar Spine 2-3 Views (Standard) XR Lumbar Spine 2-3 Views (Standard) Imaging Routine Pain 1 Occurrences starting 03/23/2022 until 03/23/2023 [facility] Work Phone: Comment on above: 1 Occurrences starting 03/23/2022 until 03/23/2023 XR Lumbar Spine 2-3 Views (Standard) XR Lumbar Spine 2-3 Views (Standard) Imaging Routine Pain 03/23/2022 3:05 PM EDT [facility] XR Pelvis and Hip - right AP and Lateral frog XR HIP GENERAL 3V PELV/AP/LAT RIGHT Radiology Routine Right hip pain Prostate cancer (HCC) 03/21/2024 1:02 PM EDT [facility] Work Phone: End: 04-20-2025 XR Pelvis and Hip - right AP and Lateral frog XR HIP GENERAL 3V PELV/AP/LAT RIGHT Radiology Routine Right hip pain Prostate cancer (HCC) 1 Occurrences starting 03/21/2024 until 04/20/2025 [facility] Work Phone: Comment on above: 1 Occurrences starting 03/21/2024 until 04/20/2025 [facility] Immunizations Immunization Date Immunization Notes Care Provider Mariangel frank 10-08-2022 influenza, injectabl e, quadrivalent, preservative free Dr. Manuel Beebe Work Phone: [facility] 10-08-2022 influenza, seasonal, injectable Dr. Manuel Beebe Work Phone: [facility] 10-08-2022 influenza virus vaccine, unspecified formulation Dinorah Posada RN [facility] 10-01-2022 COVID-19 booster vaccine, age 12+ yr, bivalent (PFIZER-BIONTECH) Manuel Beebe MD Work Phone: [facility] 10-01-2022 influenza, high-dose , quadrivalent vaccine (FLUZONE HIGH DOSE QUADRIVALENT) Manuel Beebe MD Work Phone: [facility] 02-23-2022 Covid (Pfizer) Dr. [facility] Work Phone: [facility] 10-07-2021 COVID-19 vaccine, ag e 12+ yr (PFIZER-BIONTECH - PURPLE TOP) Manuel Beebe MD Work Phone: [facility] Work Phone: 09-25-2021 Influenza, high dose seasonal Dr. Manuel Beebe MD Work Phone: [facility] 09-25-2021 influenza, high dose seasonal, preservative-free Dr. Manuel Beebe Work Phone: [facility] 09-25-2021 influenza, high-dose , quadrivalent vaccine (FLUZONE HIGH DOSE QUADRIVALENT) Manuel Beebe MD Work Phone: [facility] 03-26-2021 COVID-19 vaccine, ag e 12+ yr (PFIZER-BIONTECH - PURPLE TOP) Manuel Beebe MD Work Phone: [facility] 03-05-2021 COVID-19 vaccine, ag e 12+ yr (PFIZER-BIONTECH - PURPLE TOP) Manuel Beebe MD Work Phone: [facility] 08-12-2020 influenza, high dose seasonal, preservative-free Manuel Beebe MD Work Phone: [facility] Work Phone: 04-02-2020 hepatitis A and hepatitis B vaccine Manuel Beebe MD Work Phone: [facility] Work Phone: 09-24-2019 hepatitis A and hepatitis B vaccine Manuel Beebe MD Work Phone: [facility] Work Phone: 08-23-2019 hepatitis A and hepatitis B vaccine Manuel Beebe MD Work Phone: [facility] Work Phone: 08-02-2019 influenza, high dose seasonal, preservative-free Manuel Beebe MD Work Phone: [facility] 02-13-2019 pneumococcal polysaccharide vaccine, 23 valent Manuel Beebe MD Work Phone: [facility] 09-07-[address] Manuel Beebe Work Phone: [facility] 08-28-2018 influenza, high dose seasonal, preservative-free Manuel Beebe MD Work Phone: [facility] Work Phone: 10-07-2017 pneumococcal conjuga te vaccine, 13 valent Manuel Beebe MD Work Phone: [facility] 06-19-2017 influenza, high dose seasonal, preservative-free Manuel Beebe MD Work Phone: [facility] Work Phone: 08-11-2016 influenza, seasonal, injectable Manuel Beebe MD Work Phone: [facility] Work Phone: 07-24-2015 influenza virus vaccine, unspecified formulation Manuel Beebe MD Work Phone: [facility] 08-15-2014 influenza virus vaccine, unspecified formulation Manuel Beebe MD Work Phone: [facility] 12-31-2013 pneumococcal polysaccharide vaccine, 23 valent Manuel Beebe MD Work Phone: [facility] 12-31-2013 tetanus toxoid, redu osei diphtheria toxoid, and acellular pertussis vaccine, adsorbed Manuel Beebe MD Work Phone: [facility] NEGATED: Highlighted row has not occurred!09-25-2021 COVID-19 vaccine, age 12+ yr (PFIZER-BIONTHeartbeat - PURPLE TOP) Manuel Beebe MD Work Phone: [facility] Payers Date Payer Category Payer Self-pay [id number] 2024 Medicaid [id number] 2023 Medicaid [id number] 2023 Medicaid [id number] 2017 Private Health Insurance [employer] A ETNA MEDICARE SUPPLEMENT [id number] 2017-Present [phone] [address] [address] [place] [address] Indemnity [id number] 2017 Private Health Insurance [id number]. [id number] 2013 Medicare MEDICARE MEDICAR E A AND B [id number] 2013-Present [phone] [address] [address] [place] [address] Medicare [id number]. [id number] 2013 Medicare [id number]. 1.13.385.2. [id number] 2013 Medicare [id number] 2013 Medicare [id number] 1952 Unknown [id number] 2.16.840.1.688874.3.579.2. 903 1952 Unknown [id number] 2.16.840.1.460208.3.579.2. 903 1952 Unknown [id number] 2.16.840.1.641378.3.579.2. 903 1952 Unknown [id number] 2.16.840.1.085029.3.579.2. 903 1952 Unknown [id number] 2.16.840.1.898011.3.579.2. 903 1952 Unknown [id number] 2.16.840.1.524472.3.579.2. 903 1952 Unknown [id number] 2.16.840.1.112121.3.579.2. 903 1952 Unknown [id number] 2.16.840.1.788049.3.579.2. 903 Private Health Insurance [facility] [id number] Unknown COMMERCIAL COMME RCIAL MISCELLANEOUS [id number] Effective for all dates [phone] [address] [place] [id number] 1.2.840.313870.1.13.385.2. [id number] Unknown [id number] 2.16.840.1.517699.3.579.2. 462 Unknown [id number] 2.16.840.1.523003.3.579.2. 462 Unknown [id number] 2.16.840.1.926537.3.579.2. 462 Unknown [id number] 2.16.840.1.162097.3.579.2. 462 Unknown [id number] 2.16.840.1.101302.3.579.2. 462 Unknown [id number] 2.16.840.1.875109.3.579.2. 462 Unknown [id number] 2.16.840.1.283894.3.579.2. 462 Unknown [id number] 2.16.840.1.223450.3.579.2. 462 Unknown [id number] 2.16.840.1.972388.3.579.2. 462 Unknown [id number] 2..840.1.903963.3.579.2. 462 Unknown [id number] 2.840.1.459633.3.579.2. 462 Unknown [id number] 2.840.1.163091.3.579.2. 462 Unknown [id number] 2.840.1.701968.3.579.2. 462 Unknown [id number] 2.840.1.258331.3.579.2. 462 Unknown [id number] 2.840.1.127320.3.579.2. 462 Unknown [id number] 2.840.1.218752.3.579.2. 462 Unknown [id number] 2.840.1.631690.3.579.2. 462 Unknown [id number] 2..840.1.043429.3.579.2. 462 Unknown [id number] 2.16.840.1.501275.3.579.2. 462 Unknown [id number] 2.16.840.1.889789.3.579.2. 462 Unknown [id number] 2.16.840.1.786645.3.579.2. 462 Unknown [id number] 2.16.840.1.473533.3.579.2. 462 Unknown [id number] 2.16840.1.908785.3.579.2. 462 Unknown [id number] 2.16.840.1.146918.3.579.2. 462 Unknown [id number] 2.16.840.1.170064.3.579.2. 462 Unknown [id number] 2.16.840.1.468582.3.579.2. 462 Unknown [id number] 2.16840.1.258746.3.579.2. 462 Unknown [id number] 2.16.840.1.967271.3.579.2. 462 Unknown [id number] 2.16840.1.565983.3.579.2. 462 Unknown [id number] 2.16840.1.466070.3.579.2. 462 Unknown [id number] 2.840.1.031048.3.579.2. 462 Social History Date Type Detail Facility Start: 12-31-2013 End: 06-19-2024 Tobacco smoking status NHIS Ex-smoker [facility] Work Phone: Start: 1965 End: 07-20-2013 History of tobacco use Current smoker [facility] Work Phone: Start: 12-31-2013 End: 03-09-2023 Cigarettes smoked current (pack per day) - Reported 0.5 [facility] Start: 12-31-2013 End: 08-28-2024 Tobacco use and exposure Smokeless tobacco non-user [facility] Work Phone: Start: 01-12-2022 End: 07-17-2025 Alcohol intake Current non-drinker of alcohol (finding) [facility] Start: 04-01-2020 History SDOH Social Connections Phone 4 [facility] Start: 04-01-2020 History SDOH Social Connections Get Together 3 [facility] Start: 04-01-2020 History SDOH Social Connections Meetings 1 [facility] Start: 04-01-2020 History SDOH Stress 2 [facility] Start: 04-01-2020 History SDOH Financial 5 [facility] Start: 12-31-2013 End: 09-02-2022 Tobacco Comment Had smoked 40 years 1 PPD every 2 to 3 days (about 20 pack years) [facility] Start: 1950 Sex Assigned At Not on file [facility] Start: 12-13-2021 End: 10-01-2022 Exposure to SARS-CoV-2 (event) Not sure [facility] Start: 02-10-2022 End: 10-13-2023 Tobacco smoking status NHIS Tobacco smoking consumption unknown [facility] Work Phone: Start: 01-20-[address] [facility] Start: 01-20-[address] [facility] Start: 01-20-[address] [facility] Start: 1950 Sex Assigned At Male [facility] Start: 02-10-2022 Tobacco smoking stat us INIS Never smoked tobacco [facility] Start: 02-15-2022 End: 06-15-2022 Alcohol intake Current drinker of alcohol (finding) [facility] Start: 02-10-2022 History SDOH Alcohol Comment formerly drank, not in many years [facility] Start: 1967 End: 07-20-2013 History of tobacco use Cigarette Smoker [facility] Work Phone: Start: 04-01-2020 End: 03-09-2023 Social connection and isolation panel [facility] Start: 10-08-2012 Attends [employer] Not on file [facility] Do you feel stress - tense, restless, nervous, or anxious, or unable to sleep at night because your mind is troubled all the time - these days [OSQ] Only a little [facility] At any time in the p ast 12 months, were you homeless or living in assisted [including now]? No [facility] (I/We) worried wheth er (my/our) food would run out before (I/we) got money to buy more. 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 One per day. ALBA SCIENTIFI C INOGEN ICD FDA Start: 10-12-2019 [place] [employer] INOGEN ICD FDA Start: 10-12-2019 [place] [employer] INOGEN ICD FDA Start: 10-12-2019 HYDROGEL, 10ML FDA Start: 01-06-2022 MARKERS, FIDUCIA L GOLD FDA Start: 01-06-2022 Stem 132deg Sz8 Fem Accolade Ii - [id number], [id number]_[facility] FDA Start: 02-13-2022 [place] SCIENTIF[employer] C INOGEN ICD FDA Start: 10-12-2019 [place] SCI[employer] INOGEN ICD FDA Start: 10-12-2019 ALBA SCIENTIFI C INOGEN ICD FDA Start: 10-12-2019 [...] GOLD FDA Start: 01-06-2022 Icd-G148 Inogen X4 [id number] Start: 10-12-2019 [place] SCI[employer] C [...] Commode;Passive Range of Motion;Active Range of Motion;Bedpan [facility] Work Phone: 04-25-[address] [facility] Work Phone: 04-16-[address] [facility] Work Phone: 04-12-2023 Functional status Ambulates;Chair [facility] Work Phone: 04-27-[address] [facility] Work Phone: 04-14-[address] [facility] Work Phone: 04-13-2022 Functional status Standard Walker [facility] Work Phone: 04-12-[address] [facility] Work Phone: 04-29-2015 Are you deaf, or do you have serious difficulty hearing No 04/29/2015 10:51 AM Destiny Toscano Cma [facility] 04-29-2015 Are you blind, or do you have serious difficulty seeing, even when wearing glasses No 04/29/2015 10:51 AM Destiny Toscano Cma [facility] 04-29-2015 Do you have serious difficulty walking or climbing stairs No 04/29/2015 10:51 AM Destiny Toscano Cma [facility] 04-29-2015 Do you have difficul ty dressing or bathing No 04/29/2015 10:51 AM Destiny Toscano Cma [facility] 04-29-2015 Because of a physica l, mental, or emotional condition, do you have difficulty doing errands alone such as visiting a physician's office or shopping No 04/29/2015 10:51 AM Destiny Toscano Cma [facility] Mental Status Date Assessment Result Facility 06-26-2023 Cognitive function Voice/Name [facility] Work Phone: 06-21-2023 Cognitive function Voice/Name [facility] Work Phone: 04-25-2023 Cognitive function Voice/Name [facility] Work Phone: 04-23-2023 Cognitive function Level Of Cons ciousness Drowsy [facility] Work Phone: 04-16-2023 Cognitive function Voice/Name [facility] Work Phone: 04-13-2023 Cognitive function Level Of Cons ciousness Awake;Alert;Appropriate;Fol lows Commands [facility] Work Phone: 04-12-2023 Cognitive function Voice/Name [facility] Work Phone: 04-10-2023 Cognitive function Voice/Name [facility] Work Phone: 06-07-2022 Cognitive function Awake;Alert;F ollows Commands [facility] Work Phone: 04-27-2022 Cognitive function Voice/Name [facility] Work Phone: 04-14-2022 Cognitive function Voice/Name [facility] Work Phone: 04-11-2022 Cognitive function Voice/Name [facility] Work Phone: 04-10-2022 Cognitive function Cooperative [facility] Work Phone: 03-31-2022 Cognitive function Voice/Name [facility] Work Phone: 01-06-2022 Cognitive function Voice/Name [facility] Work Phone: 04-29-2015 Because of a physica l, mental, or emotional condition, do you have serious difficulty concentrating, remembering, or making decisions No 04/29/2015 10:51 AM EDT Destiny Meng Cma [facility] Clinical Notes 02-24-2017 to 08-29-2025 Telephone Encounter - Mayra Benton RN - 07/19/2025 2:05 PM EDTTelephone Encounter - Mayra Benton RN - 07/19/2025 2:05 PM EDTTelephone Encounter - Merlin Loredo MD - 07/19/2025 1:21 PM EDT Note Date & Type Note Facility 08-29-2025 Note HNO ID: [id number] Author: EL ARNETT MD Service: ? Author Type: Physician Type: Progress Notes Filed: 08/29/2025 16:45 Note Text: No issues, well-healed. Follow-up PRN. El Arnett MD I have seen and evaluated the patient and discussed the case with the resident physician. I agree with the assessment and plan as documented in the resident?s note. [facility] 08-29-2025 Note HNO ID: [id number] Author: LEONIE ANTOINE MD Service: ? Author Type: Resident Type: Progress Notes Filed: 08/29/2025 16:45 Note Text: [facility] Abdominal [facility] - ESTABLISHED FOLLOW-UP Chief Complaint: post-op visit HPI: Steph Baumann is a 75 year old male with PMH of HTN, T2DM, ALBINO, cirrhosis and CHF who presents for follow-up three weeks after open right inguinal hernia repair with mesh on 08/07/25. He still has some pain in his right hip, but has gotten better since the surgery. Overall feels well. 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) Metabolic encephalopathy [...] SURGICAL HISTORY OF 10/2019 Placement of BiVICD SOCIAL HISTORY[1] Additional social history not relevant to the patient's HPI FAMILY HISTORY Problem Relation Age of Onset Diabetes Mother Coronary Artery Disease Mother Thyroid Mother thinks "over active" Diabetes Child daughter Additional family history not relevant to the patient's HPI ALLERGIES Allergen Reactions Acetaminophen Other: See Comments Oxycodone Other: See Comments Metformin Diarrhea Even low dose caused diarrhea Oxycodone-Acetamino* Unknown Current Outpatient Medications Medication Sig Dispense Refill apixaban (ELIQUIS) 5 mg tab(s) Take 1 tablet by mouth two times a day. Patient should start on August 10, 2025. 60 tablet 0 BYDUREON BCISE 2 mg/0.85 mL injection Inject 2 mg subcutaneously one time a week. diclofenac (VOLTAREN ARTHRITIS PAIN) 1 % topical gel Apply one application to right hip topically every 12 hours as needed for pain. denosumab (PROLIA) 60 mg/mL Injection to be administered once every 6 months 1 mL 1 lactulose 20 gram/30 mL solution Take 45 [...] 50 mg tablet Take 50 mg by m (more content not included)... [facility] 08-29-2025 Note HNO ID: [id number] Author: BASSEM SINGH MA Service: ? Author Type: Developmental Specialist Type: Progress Notes Filed: 08/29/2025 16:45 Note Text: What is the reason for your visit today? Post OP Who is your referring physician? Are you having poor oral intake? NO Have you had unintentional weight loss of 15 lbs/7 Kg in the last 3-6 months? NO Bowels: regular Wound: clean AND dry Temperature: No Drains: No [facility] 08-21-2025 Note HNO ID: [id number] Author: GLENDA HUMPHREY LPN Service: ? Author Type: Licensed Nurse Type: Progress Notes Filed: 08/21/2025 14:39 Note Text: Patient here for injection of Prolia given SQ in right arm and Eligard given SQ in LLQ. Patient tolerated well. Glenda Humphrey LPN [facility] 08-08-2025 Note HNO ID: [id number] Author: THANIA ROMAN, TISH Service: Care Management Author Type: Registered Nurse Type: Care Mgt Progress Note Filed: 08/08/2025 16:58 Note Text: CARE MANAGEMENT UTILIZATION REVIEW COMMITTEE Condition Code 44 (Admission Status Discrepancy Review) Admission Date: 08/07/2025 Patient's Initial Order is: Inpatient Date Requested: 08/08/25 Date Reviewed: 08/08/25 Dr. El Arnett, the practitioner responsible for the care of the patient, was consulted and concurs with the determination made by the Utilization Management Committee. Under the authority of the Utilization Management Committee, the Physician Advisor, Dr. Maximo Brown III, has reviewed the medical record of the above patient. The Physician Advisor has made the following recommendation based on the currently available medical information as of the date of this determination. Recommended Status: Outpatient In a Bed / Extended Recovery Rationale for this decision: CPT code(s) not on inpatient only list SIGNATURE: Thania Roman RN PATIENT NAME: Steph Baumann DATE: August 08, 2025 TIME: 4:57 PM Disclaimer: The information in this determination is to be used for utilization management purposes only. The information and recommendation is made pursuant to Medicare Hospital Conditions of Participation (442 CFR Part 482) and is neither a judgment nor an assessment with regard to the appropriateness or quality of the clinical care. Nothing in this document may be used to limit clinical services provided to the above named patient. This form should be used as one part of the process utilized to ensure compliance with [facility] policy regarding Inpatient Admission and Observation Services. The definitions of Inpatient and Observation used in making the determination above are those provided in Medicare Benefit Policy Manual Chapter 1, Section 1 and 10, Chapter 6, Section 20, and the Medicare Claims Processing Manual Chapter 1, Section 50.3 and Chapter 4, Section 290. This recommendation should be considered as only one factor in determining the patient's final level of service along with other pertinent documentation such as the treating physician's order as documented evidence of concurrence. [facility] 08-08-2025 Note HNO ID: [id number] Author: SATISH RAMIREZ RPh Service: Pharmacy Author Type: Pharmacist Type: Plan of Care Filed: 08/08/2025 14:22 Note Text: DISCHARGE MEDICATION REVIEW BY PHARMACY Patient Name: Steph Baumann Account #: Data Unavailable Admission Date: 08/07/2025 Date of Contact: August 08, 2025 Time of Contact: 2:22 PM Medication list was reviewed by a Pharmacist for drug interactions or drug related problems:Yes Below is a summary of pharmacist recommendations discussed with LIP: No recommendations at this time from discharge medication list. Satish Ramirez RPh Pager: [phone] 08/08/2025 2:22 PM Medication List START taking these medications ondansetron 4 mg tablet Commonly known as: ZOFRAN Take 1 tablet by mouth every 12 hours as needed for nausea/vomiting for up to 5 days. CHANGE how you take these medications apixaban 5 mg tab(s) Commonly known as: ELIQUIS Take 1 tablet by mouth two times a day. Patient should start on August 10, 2025. Start taking on: August 10, 2025 What changed: These instructions start on August 10, 2025. If you are unsure what to do until then, ask your doctor or other care provider. CONTINUE taking these medications acetaZOLAMIDE 250 mg tablet Commonly known as: DIAMOX albuterol HFA 90 mcg/actuation inhaler Commonly known as: VENTOLIN HFA Inhale 2 Puffs as instructed every 6 hours as needed for wheezing/shortness of breath. aluminum-magnesium hydroxide-simethicone 200-200-20 mg/5 mL suspension Commonly known as: MAALOX,MYLANTA,MAG-AL PLUS baclofen 20 mg tablet bicalutamide 50 mg tablet Commonly known as: CASODEX bisacodyl 10 mg Supp Commonly known as: DULCOLAX bumetanide 1 mg tablet Commonly known as: BUMEX Take 1 tablet by mouth once daily. BYDUREON BCISE 2 mg/0.85 mL injection Generic drug: exenatide microspheres carbidopa-levodopa 25-100 mg per tablet Commonly known as: SINEMET 25-100 COMPOUNDED PRESCRIPTION Four point cane Dx: Z86.73, R53.1 CPAP BiPAP @ 9/13 cm of water with humidification. lifetime supplies. Dx ALBINO docusate sodium 100 mg capsule Commonly known as: COLACE FLEET ENEMA WV GLUCAGON EMERGENCY KIT (HUMAN) INJECTION GLUCOSE GEL PO GUAIFENESIN PO insulin glargine 100 unit/mL (3 mL) Commonly known as: BASAGLAR KWIKPEN U-100 INSULIN Inject 27 Units subcutaneously daily at bedtime. Adjust dose as directed lactulose 20 gram/30 mL solution lisinopril 5 mg tablet Commonly known as: ZESTRIL MILK OF MAGNESIA PO Multivitamin capsule MUSCLE RUB 15-10 % topical cream Generic drug: methyl salicylate-menthol nitroglycerin sublingual 0.4 mg SL tablet Commonly known as: NITROQUICK Dissolve 1 tablet under the tongue every 5 minutes as needed for Chest Pain. ondansetron orally disintegrating 4 mg disintegrating tablet Commonly known as: ZOFRAN ODT Take 1 tablet by mouth every 8 hours as needed for nausea/vomiting. pantoprazole DR 40 mg tablet Commonly known as: PROTONIX potassium chloride ER 20 mEq tablet Commonly known as: KLOR-CON PROLIA 60 mg/mL syringe Generic drug: denosumab Injection to be administered once every 6 months Sennosides 8.6 mg Cap sertraline 50 mg tablet Commonly known as: ZOLOFT traMADol 50 mg tablet Commonly known as: ULTRAM Vitamin D-3 50 mcg (2,000 unit) tablet Generic drug: cholecalciferol VOLTAREN ARTHRITIS PAIN 1 % topical gel Generic drug: diclofenac Where to Get Your Medications These medications were sent to - [facility] [place] [address] - [address] - [phone] [address] [facility] [address] apixaban 5 mg tab(s) ondansetron 4 mg tablet [facility] 08-08-2025 Note HNO ID: [id number] Author: DENA MORENO LSW Service: Care Management Author Type: Mammography Supervisor Type: Care Mgt Initial Assessment Filed: 08/08/2025 13:59 Note Text: CARE MANAGEMENT: ASSESSMENT AND DISCHARGE PLAN SERVICE DATE: August 08, 2025 SERVICE TIME: 1:56 PM PCP: Elisa Narvaez MD Primary Contact: Extended Emergency Contact Information Primary Emergency Contact: Bob Ferraro Greer Mobile Relation: Friend Admission Status: Inpatient Insurance Provider: MEDICARE A AND B Discharge Planning requested by: Per Department Practice Potential Transition Plans Longterm Facility/Intermediate Care Facility Advance Directives Current Advance Directive: Health Care Power of Flight Surgeon In Chart: Yes Up To Date and Valid: Yes Current Living Arrangements and Support Lives with: Other person(s) Type of Residence: Extended Care Facility Care Facility Name: [facility] Support: Other: See Comment How do you manage to accomplish the following: Dependent: Ambulation, Bathe/Shower, Dress, Meals/Meal Prep, Going to the bathroom, Medication Management, Transportation to appointments/community Current Services/Equipment Discharge Planning Patient Goal(s): General wellness [place] of Choice Explained: [place] of Choice Given: Yes Are you interested in bedside delivery of your medications? Yes Discharge Planning Participant(s): Caregiver Patient/Family Comments: Bob Ferraro/EDGAR Caregiver Assessment: Caregiver is ready, willing and able to meet the patient's needs as recommended by the inter-professional team: Yes Name of Caregiver: Nursing Facility Transport at Discharge: Transportation Arrangements: [employer] Agency and Phone #:: [facility] [phone] Date of Trip: 08/08/25 Time of Trip: 1430 Was transportation financial coverage discussed with family?: POA Needs Prior to Discharge: Needs Prior to Discharge: None Post-Acute Discharge Plan: Chart reviewed. Notified by primary team that pt is medically cleared to return to his senior living today. Pt is currently s[facility]p [facility]. Pt is a [facility] at [facility]. Referral sent. Pt has a bed hold and can return today. Transport requested. Pt needs to transport in his motorized wc. MMT transport today at 230p. Trip number [id number] DC packet completed. Rn given report number DC instructions and dc summary sent to SNF via [employer]. No additional needs identified for CM intervention at this time. SIGNATURE: KRYSTIN Dumont PATIENT NAME: Steph Baumann DATE: August 08, 2025 TIME: 1:56 PM [facility] 08-08-2025 Note HNO ID: [id number] Author: HIRAM MENDOZA MD Service: General Surgery Author Type: Resident Type: Progress Notes Filed: 08/08/2025 08:45 Note Text: GENERAL SURGERY PROGRESS NOTE Service Date: August 08, 2025 Recent Procedures: Status Post : Procedure(s): HERNIORRHAPHY INGUINAL INITIAL HERNIA >5 YRS REDUCIBLE (ELECTIVE) Date of Surgery: 08/07/2025 (LOS: 1) Indication: Pre-Op Diagnosis Codes: * Preoperative examination [Z01.818] * Non-recurrent unilateral inguinal hernia without obstruction or gangrene [K40.90] Assessment and Plan: Steph Baumann is a 74-year-old male with PMHx of HTN, Afib (on Eliquis), CHF s/p ICD, T2DM, liver cirrhosis, portal HTN, ALBINO, and BPH, scheduled to undergo right-sided inguinal hernia repair for a right-sided symptomatic chronic irreducible inguinal hernia with rapid enlargement and pain with movement. Patient is now s/p Open right inguinal hernia repair with mesh on 08/07/2025. Patient is doing well postoperatively. Neuro/Pain: Scheduled Tylenol, PRN Roxicodone, Dilaudid Cardiac: Q4 Vitals. Continue Diamox, Casodex, Bumex, Zestril. Start eliquis on Tuesday (08/10) Respiratory: Incentive spirometry. Try to wean off O2 as able. GI: Regular Diet. PRN Antiemetic available. Continue protonix, polyethylene glycol, docusate FEN: Replete electrolytes PRN. Renal: UOP adequate. Bolus PRN. Strict I/Os. ID: s/p perioperative antibiotics. No clinical evidence of infection. Heme: H/H stable. No clinical evidence of bleeding. Endo: No issues. Lines/Drains: N/A, chronic york catheter, continue to monitor output Prophylaxis: OOB/ambulation, SCDs, s/q heparin TID Dispo: RNF, possible d/c to his SNF today Plan discussed with El Winters MD. Hiram Mendoza MD General Surgery, PGY 1 Hernia Surgery service (pager [phone]) 08/08/2025 Hernia Teams: Emiliano (Otto Shukla, Uri): [phone] [place] (Ce Bhatia, Hope): [phone] After 6PM and on the weekends: [phone] SUBJECTIVE: No acute events overnight Pain is appropriately controlled with current regimen Nausea: No. Vomiting: No. Flatus: No. Bowel movement: No. OBJECTIVE Physical Exam: BP 122/53 Pulse 70 Temp (Src) 97.5 (Oral) Resp 18 Ht 5' 9.016" (1.75m) Wt 171 lb 15.3 oz (78.0kg) SpO2 100% BMI 25.38 kg/(m2). O2 Therapy: Nasal Cannula, Liters (Numeric Only): 2 General: awake, in no acute distress, alert, oriented HEENT: normocephalic, atraumatic Pulm: non-labored breathing on 2L NC, no shortness of breath, bilateral chest wall rise Abdomen: soft, appropriately tender, nondistended, incision is clean, dry and intact. Neuro: no gross focal neurologic deficits Ext: warm and well perfused, no edema Labs: CBC, BMP, MG, PHOS Recent Labs 08/08/25 0207 07/30/25 1525 07/17/25 0948 02/13/25 1202 08/28/24 0851 05/09/24 1013 04/10/24 0902 02/15/24 0827 12/22/23 0909 WBC 7.87 6.96 5.85 6.02 < > -- -- 7.73 -- HB 11.3* 12.3* 11.8* 12.3* < > -- -- 13.4 -- HCT 35.3* 38.2* 38.1* 38.3* < > -- -- 40.7 -- PLT 126* 150 158 135* < > -- -- 150 -- NA 135* 140 139 136 < > -- < > 139 139 K 4.3 4.3 4.5 4.1 < > -- < > 4.2 3.9 CHLOR 106 107 107 106 < > -- < > 109* 108* CO2 17* 20* 21* 22 < > -- < > 21* 22 BUN 26* 21 19 22 < > -- < > 29* 27* CREAT 0.95 1.08 0.92 0.96 < > -- < > 1.14 1.28* GLUC 96 147* 111* 138* < > -- < > 133* 129* CA 8.4* 8.8 9.2 9.0 < > 9.6 < > 10.1 9.1 MG 2.0 -- -- -- -- 2.0 -- 2.2 2.2 P 2.2* -- -- -- -- 3.8 -- 4.1 3.2 < > = values in this interval not displayed. Liver Function, Amylase, AND Lipase Recent Labs 07/30/25 1525 07/17/25 0948 02/13/25 1202 08/28/24 0851 TPROT 7.3 6.8 6.8 7.2 ALB 4.0 3.7* 4.1 4.1 ALT <5* <5* 7* <5* AST 9* 12* 15 12* ALKPHOS 62 61 70 68 TBILI 0.4 0.3 0.3 0.5 Coags Recent Labs 07/17/25 0948 02/13/25 1202 08/28/24 0851 02/15/24 0827 APTT 34.3* -- -- -- INR 1.3 1.3 1.3 1.3 Cardiac Enzymes Intake and Output: Date 08/07/25 0700 - 08/08/25 0659 08/08/25 0700 - 08/09/25 0659 Shift 3611-4759 8547-4558 3624-5713 24 Hour Total 6497-5149 7080-3533 8764-5838 24 Hour Total INTAKE PO 100 0 100 PO 100 0 100 IV 673 409 5871 Volume (mL) (albumin (5%) infusion) 250 250 Volume (mL) (lactated ringers iv infusion) 600 600 Volume (mL) (lactated ringers iv infusion) 400 400 Shift Total 850 500 0 1350 OUTPUT Urine 300 860 755 3567 OR Urine Output 200 200 Output ( Indwelling Urinary Catheter 08/07/25 1012 External Facility [place]) 100 096 823 7662 # of BMs Number of BMs 0 x 0 x 0 x Blood 20 20 Estimated Blood loss 20 20 Shift Total 320 777 229 6968 Weight (kg) 78 78 78 78 78 78 78 Current Medications: Current Facility-Administered Medications Medication Dose Route Frequency bicalutamide 50 mg tab(s) (CASODEX) 50 mg ORAL DAILY acetaZOLAMIDE 250 mg tab(s) (DIAMOX) 250 mg ORAL BID bumetanide 1 mg tab(s) (BUMEX) 1 mg ORAL DAILY lisinopril 5 mg tab(s (more content not included)... [facility] 08-07-2025 Note HNO ID: [id number] Author: KODI WORTHINGTON MD Service: General Surgery Author Type: Resident Type: Progress Notes Filed: 08/07/2025 18:12 Note Text: POST OPERATIVE CHECK Patient Name: Steph Baumann Service Date: August 07, 2025 Service Time: 1:59 PM PRIMARY SERVICE: General Surgery Patient is s/p Open right inguinal hernia repair with mesh on 08/07/2025 ASSESSMENT/PLAN: Steph Baumann is a 74-year-old male with PMHx of HTN, Afib (on Eliquis), CHF s/p ICD, T2DM, liver cirrhosis, portal HTN, ALBINO, and BPH, scheduled to undergo right-sided inguinal hernia repair for a right-sided symptomatic chronic irreducible inguinal hernia with rapid enlargement and pain with movement. Patient is now s/p Open right inguinal hernia repair with mesh on 08/07/2025 - Continue routine post-op care. - Please reach out with questions or concerns. SUBJECTIVE: Pt denies n/v, chest pain, SOB, dizziness, UOP appropriate, denies flatus. Pain appropriately managed on current regimen. OBJECTIVE: BP 139/73 Pulse 69 Temp 36 ?C (96.8 ?F) (Temporal) Resp 20 SpO2 99% General: Resting comfortably in bed, awake, answering questions appropriately Respiratory: Respiratory effort is normal, Bilateral Chest rise Abdomen: Soft, non-distended, incisions are c/d/i Extremities: Warm, well perfuse, no edema Drains: N/A Kodi Worthington MD General Surgery, PGY 1 Hernia Surgery service (pager [phone]) 08/07/2025 Hernia Teams: Emiliano (Otto Shukla Tastaldi): [phone] Mirza (Ce Bhatia Petro): [phone] After 6PM and on the weekends: [phone] [facility] 08-07-2025 Note HNO ID: [id number] Author: PERLA ROSARIO APRN.CRNA Service: ? Author Type: Nurse Manuscript Reader Type: Anesthesia Procedure Notes Filed: 08/07/2025 12:21 Note Text: ANESTHESIOLOGY PROCEDURE NOTE PIV General Information Procedure Start Time/Medication Administration: 08/07/2025 11:30 AM Procedure End Time: 08/07/2025 11:30 AM Patient Location: OR Staffing INSPECTOR WATCH PARTS: Perla Rosario APRN.INSPECTOR WATCH [employer]S SRNA: Toby Peters SRNA Performed by: GISELL Preparation Sterility Preparation: hand hygiene performed prior to procedure, surgical cap used, mask used, skin prep agent completely dried prior to procedure Sterility Technique Not Completely Performed Due to Extreme Emergency: No Site Prep: alcohol Procedure Details Indication: need for IV access Needle Size/Type: 20 gauge angiocath Orientation: Left Location: Hand Imaging Guidance Used: No SIGNATURE: Perla Rosario APRN.INSPECTOR WATCH [employer]S PATIENT NAME: Steph Baumann DATE: August 07, 2025 TIME: 12:20 PM CSN: [id number] [facility] 08-07-2025 Note HNO ID: [id number] Author: PERLA ROSARIO APRN.CRNA Service: ? Author Type: Nurse Manuscript Reader Type: Anesthesia Procedure Notes Filed: 08/07/2025 12:10 Note Text: ANESTHESIOLOGY PROCEDURE NOTE A-Line General Information Procedure Start Time/Medication Administration: 08/07/2025 11:25 AM Procedure End Time: 08/07/2025 11:26 AM Patient location during procedure: OR Timeout Performed Pre-procedure: timeout performed Indications: continuous blood pressure monitoring and blood sampling needed Staffing INSPECTOR WATCH PARTS: Perla Rosario APRN.INSPECTOR WATCH PARTS Performed by: CARMEN Preparation Sterility Preparation: hand hygiene performed prior to procedure, sterile gloves, drapes, and procedure tray, surgical cap used, mask used, sterile drape used during line insertion, skin prep agent completely dried prior to procedure Sterility Technique Not Completely Performed Due to Extreme Emergency: No Site Prep: Chloraprep Procedure Details Catheter Type: arterial line Catheter Size: 20 G Catheter Length: 5.25 in Micropuncture Kit Used: No Guidewire Used: Yes Guidewire Removed Intact: Yes Laterality: right Site: brachial artery Ultrasound Guided: Yes Image in Chart: No Sites: potential access sites evaluated, selected vessel patent, concurrent real time ultrasound visualization of vascular needle entry Vessel: target vessel identified and guidewire advanced into vessel Line Secured: tape and occlusive biodressing Events Events: patient tolerated procedure well with no complications SIGNATURE: Perla Rosario APRN.CRNA PATIENT NAME: Steph Baumann DATE: August 07, 2025 TIME: 12:01 PM CSN: [id number] [facility] 08-07-2025 Note HNO ID: [id number] Author: PERLA ROSARIO APRN.CRNA Service: ? Author Type: Nurse Manuscript Reader Type: Anesthesia Procedure Notes Filed: 08/07/2025 12:00 Note Text: ANESTHESIOLOGY PROCEDURE NOTE Airway General Information Procedure Start Time/Medication Administration: 08/07/2025 11:32 AM Procedure End Time: 08/07/2025 11:33 AM Patient location during procedure: OR Timeout Performed Pre-procedure: timeout performed Consent Obtained: Yes Patient identity confirmed: arm band, care team facilitator and patient Staffing SRNA: Toby Peters SRNA Performed by: GISELL Indications and Patient Condition Indications for airway management: anesthesia Preoxygenated: yes anesthesia circuit Patient position: sniffing Method: modified rapid sequence Cricoid Pressure: No Manual In-Line Stabilization: No Difficult Mask: No Final Airway Details Final airway type: endotracheal airwayFinal Endotracheal Airway: ETT Cuffed: yes Successful intubation technique: video laryngoscopy Devices used: SOLARBRUSH Endotracheal tube insertion site: oral Blade: Dora Blade size: #4 ETT size (mm): 7.5 Measured from: lips Measurement (cm): 23 Placement verified by: capnometry Cormack-Lehane Classification: grade I - full view of glottis Number of attempts at approach: 1 Failed airway: no Unrecognized esophageal intubation: no Airway not difficult SIGNATURE: Perla Rosario APRN.INSPECTOR WATCH PARTS PATIENT NAME: Steph Baumann DATE: August 07, 2025 TIME: 11:58 AM CSN: [id number] [facility] 07-30-2025 Note HNO ID: [id number] Author: BAKARI CHAUDHRY MD Service: ? Author Type: Fellow Type: Progress Notes Filed: 08/03/2025 15:08 Note Text: PULMONARY HYPERTENSION CLINIC July 30, 2025 CC: I am seeing Steph Baumann in consultation at the request of Lupe Rushing for Pulmonary Hypertension. Summary of this visit and my recommendations will be relayed to the referring physician by way of electronic communication or by mail. PCP: Elisa Narvaez MD Referring Provider: Lupe Rushing HPI: Mr. Baumann is a 75 year old male with a PMH of Steph Baumann is a pleasant 69 year old male with PMHx significant for HTN, DMT2, ALBINO on CPAP, biventricular congestive heart failure (NICM) and planned to have a Biv ICD s/p 2018, AFIB on apixaban (followed at [facility]), prostate cancer s/p radiation therapy 2021, on hormone blockers who presents today for evaluation of pulmonary hypertension as part of a perioperative evaluation. Patient has worsening right inguinal hernia that has caused abdominal pain, nausea and emesis, along with urinary retention. This has required patient to obtain york catheter and be scheduled for routine hernia repair. Patient's surgeon would like to obtain preop evaluation in setting of suspected pulmonary hypertension noted on echocardiogram. Shortness of breath at rest:No Shortness of breath w/ exertion:N/A secondary to disability from Parkinson's Orthopnea:Non PND:No Edema:No Chest Pain:No Palpitations:No Dizziness/Lightheadedness:No Syncope:No Diet:Regular Regular Exercise: No ROS: Nausea, projectile vomiting and urinary retention secondary to hernia QUESTIONS SURROUNDING PULMONARY HYPERTENSION RISK: Prior diet pill use? No Prior use of amphetamines? No H/oDVT or PE?No Prior liver disease? No Prior HIV/Hepatitis B or C risk?No H/o splenectomy? No Prior thyroid disease? No Prior lung disease? No Family h/o PAH?No Snoring or witnessed apneas? ALBINO, on CPAP Arthralgias? Isolated right hip pain Skin rash or lesions? No Raynaud's symptoms? No PHYSICAL EXAM: VITALS: 07/30/25 1321 BP: 84/58 Pulse: 64 Resp: 16 Temp: (!) 35.7 ?C (96.3 ?F) TempSrc: Temporal SpO2: 97% Weight: 78 kg (172 lb) General appearance: Alert, NAD Neck: Supple neck. Midline trachea. Thyroid nontender and non-enlarged. JVD not present at incline Respiratory: Lungs clear to auscultation. No wheezing, rhonchi, rales. Diaphragmatic excursion and chest wall symmetry appear equal and normal. No accessory muscle use. Cardiovascular: RRR without gallop, or rubs. THere is no murmur. Non-displaced PMI. No parasternal heave. 1+ peripheral edema noted in the lower extremities L>R to mid tibia. Upper extremities appear Normal Normal temperature of all 4 extremities. Abdomen/GI: Abdomen soft, non-tender, non-distended. Right inguinal hernia Extremities: No clubbing or cyanosis of fingers. No cracking, pitting or petechiae on fingers. Musculoskeletal: Spine shows no kyphosis or scoliosis. Muscles show no clear abnormality. Skin:No petechiae, ecchymoses, rash noted. Neuro: Loss of motor function all 4 extremities, alert and responsive to commands TESTS/LABS: Labs: by EIA, Qual (no units) Date Value 02/14/2019 Negative by EIA (OD Ratio) Date Value 02/14/2019 0.7 Rheumatoid Factor No results found for: "RF" TSH TSH Date Value 05/09/2024 2.570 mIU/L 12/11/2020 3.360 uU/mL HIV HIV 12 Combo (Ag/Ab) (no units) Date Value 12/22/2023 Nonreactive ] Hepatitis B Surface Antigen HBsAg (no units) Date Value 02/14/2019 Negative Hepatitis C Hep C Antibody IA (no units) Date Value 12/22/2023 Negative 02/14/2019 Negative NT PRO BNP Lab Results Component Value Date PBNP 1,601 (H) 07/30/2025 Chemistries Lab Results Component Value Date NA 140 07/30/2025 NA 139 07/17/2025 NA 136 02/13/2025 K 4.3 07/30/2025 K 4.5 07/17/2025 K 4.1 02/13/2025 CHLOR 107 07/30/2025 CHLOR 107 07/17/2025 CHLOR 106 02/13/2025 CO2 20 (L) 07/30/2025 CO2 21 (L) 07/17/2025 CO2 22 02/13/2025 BUN 21 07/30/2025 BUN 19 07/17/2025 BUN 22 02/13/2025 CREAT 1.08 07/30/2025 CREAT 0.92 07/17/2025 CREAT 0.96 02/13/2025 EGFROTH 72 07/30/2025 EGFROTH 88 07/17/2025 EGFROTH 84 02/13/2025 GLUC 147 (H) 07/30/2025 GLUC 111 (H) 07/17/2025 GLUC 138 (H) 02/13/2025 ANION 13 07/30/2025 ANION 11 07/17/2025 ANION 8 02/13/2025 Liver Function Lab Results Component Value Date AST 9 (L) 07/30/2025 AST 12 (L) 07/17/2025 AST 15 02/13/2025 ALT <5 (L) 07/30/2025 ALT <5 (L) 07/17/2025 ALT 7 (L) 02/13/2025 ALKPHOS 62 07/30/2025 ALKPHOS 61 07/17/2025 ALKPHOS 70 02/13/2025 TBILI 0.4 07/30/2025 TBILI 0.3 07/17/2025 TBILI 0.3 02/13/2025 CBC Lab Results Component Value Date HB 12.3 (L) 07/30/2025 HB 11.8 (L) 07/17/2025 HB 12.3 (L) 02/13/2025 HCT 38.2 (L) 07/30/2025 HCT 38.1 (L) 07/17/2025 H (more content not included)... [facility] 07-19-2025 Telephone encounter Note Patient updated Mayra Benton RN [facility] 07-19-2025 Miscellaneous Notes Patient updated Mayra Benton RN Mayra, Please let him know: Official reading of US indicates the absence of ascites; no liver mass, and the presence of gallstones labs are excellent He is cleared for hernia repair from liver perspective. I look forward to seeing him in 6 months Merlin Loredo MD Lab results and LIVUS result available for review LIVUS: IMPRESSION: Visualized liver is unremarkable except for stable subcentimeter echogenic lesion in the right lobe that is likely benign. Cholelithiasis. No biliary dilatation. Mayra Benton RN July 19, 2025 10:05 AM P.O.A called in Please call [phone] to discuss lab/test results Luz Elena Snell Technical Illustrator maya documented in this encounter [facility] 07-19-2025 Telephone encounter Note Mayra, Please let him know: Official reading of US indicates the absence of ascites; no liver mass, and the presence of gallstones labs are excellent He is cleared for hernia repair from liver perspective. I look forward to seeing him in 6 months Merlin Loredo MD [facility] Work Phone: 07-19-2025 Telephone encounter Note Lab results and LIVUS result available for review LIVUS: IMPRESSION: Visualized liver is unremarkable except for stable subcentimeter echogenic lesion in the right lobe that is likely benign. Cholelithiasis. No biliary dilatation. Mayra Benton RN July 19, 2025 10:05 AM [facility] 07-19-2025 Telephone encounter Note P.O.A called in Please call [phone] to discuss lab/test results Luz Elena Snell Technical Illustrator [facility] 07-18-2025 Note HNO ID: [id number] Author: MERLIN LOREDO MD Service: ? Author Type: Physician Type: Progress Notes Filed: 07/18/2025 14:39 Note Text: The patient is a 75-year-old male with cirrhosis, ascites, biventricular CHF with tricuspid insufficiency, and pulmonary hypertension, presenting for follow-up. He is accompanied by his spouse, who provides additional history. He is scheduled for elective repair of a right groin hernia on 08/07, which recently began causing urinary obstruction, necessitating catheter placement. His spouse reports that the hernia is also believed to be contributing to significant right hip pain. She notes that he is voiding frequently with normal urine color, and denies any current abdominal distension or difficulty with urination. His pulmonary hypertension is being monitored by his family services coordinator. Diagnostics: (February 2025) CMP: Entirely normal (Today) - Ultrasound: No ascites observed (official report pending) - Laboratory tests: Prothrombin time 1.3 INR (normal) (April 2023) Ultrasound: Mild tricuspid insufficiency; estimated right ventricular systolic pressure 63 mmHg; improved hepatic appearance (February 2023) Ultrasound: Unremarkable liver, no mass, cholelithiasis, no ascites FibroScan (1 year ago): 7.1 kPa, CAP 277 Echocardiogram (last year): Almost no tricuspid insufficiency (2018) Serologic testing: No specific etiology for cirrhosis (2019) FibroScan: 31 kPa Exam: BP 96/57 (BP Site: Right Arm, BP Position: Sitting, BP Cuff Size: Regular Adult) Pulse 66 Temp 36.2 ?C (97.2 ?F) (Temporal) Ht 175.3 cm (5' 9") Wt 78 kg (172 lb) SpO2 97% BMI 25.40 kg/m? HEENT: neg abd: no ascites extrem: no edema neuro: no AMS Impression and Plan 1. Liver disease (K76.9) History of cirrhosis with prior ascites, now showing significant improvement. Most recent FibroScan (1 year ago) showed 7.1 kPa (previously 31 kPa in 2019). February ultrasound showed no cirrhosis or ascites; today's preliminary ultrasound also shows no ascites. INR is normal at 1.3. Low MELD (8) and Hawa Chopra score (A-5) - Continue routine surveillance ultrasounds every 6 months to monitor for hepatocellular carcinoma. - Follow-up in 6 months after next ultrasound and labs. Merlin Loredo MD He is cleared for planned hernia repair from liver perspective Merlin Loredo MD [facility] 07-18-2025 History of Presen t illness Narrative The patient is a 75-year-old male with cirrhosis, ascites, biventricular CHF with tricuspid insufficiency, and pulmonary hypertension, presenting for follow-up. He is accompanied by his spouse, who provides additional history. He is scheduled for elective repair of a right groin hernia on 08/07, which recently began causing urinary obstruction, necessitating catheter placement. His spouse reports that the hernia is also believed to be contributing to significant right hip pain. She notes that he is voiding frequently with normal urine color, and denies any current abdominal distension or difficulty with urination. His pulmonary hypertension is being monitored by his family services coordinator. Diagnostics: (February 2025) CMP: Entirely normal (Today) - Ultrasound: No ascites observed (official report pending) - Laboratory tests: Prothrombin time 1.3 INR (normal) (April 2023) Ultrasound: Mild tricuspid insufficiency; estimated right ventricular systolic pressure 63 mmHg; improved hepatic appearance (February 2023) Ultrasound: Unremarkable liver, no mass, cholelithiasis, no ascites FibroScan (1 year ago): 7.1 kPa, CAP 277 Echocardiogram (last year): Almost no tricuspid insufficiency (2019) Serologic testing: No specific etiology for cirrhosis (2019) FibroScan: 31 kPa Exam: BP 96/57 (BP Site: Right Arm, BP Position: Sitting, BP Cuff Size: Regular Adult) Pulse 66 Temp 36.2 C (97.2 F) (Temporal) Ht 175.3 cm (5' 9") Wt 78 kg (172 lb) SpO2 97% BMI 25.40 kg/m HEENT: neg abd: no ascites extrem: no edema neuro: no AMS Impression and Plan 1. Liver disease (K76.9) History of cirrhosis with prior ascites, now showing significant improvement. Most recent FibroScan (1 year ago) showed 7.1 kPa (previously 31 kPa in 2019). February ultrasound showed no cirrhosis or ascites; today's preliminary ultrasound also shows no ascites. INR is normal at 1.3. Low MELD (8) and Hawa Chopra score (A-5) - Continue routine surveillance ultrasounds every 6 months to monitor for hepatocellular carcinoma. - Follow-up in 6 months after next ultrasound and labs. Merlin Loredo MD He is cleared for planned hernia repair from liver perspective Merlin Loredo MD documented in this encounter [facility] 07-17-2025 Telephone encounter Note Placed cardiology and pulm HTN consults- requested within a week. Thank you. [facility] 07-17-2025 Miscellaneous Notes Placed cardiology and pulm HTN consults- requested within a week. Thank you. documented in this encounter [facility] 07-17-2025 Note Addended by: LUPE RUSHING on: 07/17/2025 01:34 PM Modules accepted: Orders [facility] 07-17-2025 Miscellaneous Notes Addended by: LUPE RUSHING on: 07/17/2025 01:34 PM Modules accepted: Orders documented in this encounter [facility] 07-17-2025 Instructions Lupe Rushing MD - 07/17/2025 12:47 PM EDT Images from the original note were not included. [facility] PATIENT PREOPERATIVE INSTRUCTIONS Hung Ridley APRN.C* has scheduled you for your procedure at this surgery center: [facility]: --[address] [place] [address]. - To obtain your arrival time for surgery, call your physician's office the day before your surgery. - If you have received different instructions about finding out your arrival time from your surgeon, please follow those instructions. - If your surgery is scheduled for Tuesday, call the Tuesday before. Your surgeon s pilot boat deckhand will tell you what time to call the office. - If you have not reached the departmental pilot boat deckhand by 5 P.M., call [phone] after 5 P.M. the day before your surgery. Please read below carefully for your personalized instructions. Dietary Restrictions: - Nothing to eat or drink after midnight except for a sip of water with approved medications. Medications: Unless instructed differently below, stay on all of your medications until your surgery. If you start any new medications after today's visit, please contact your surgeon. Pre-Surgery Med Instructions Medication Instructions denosumab (PROLIA) 60 mg/mL Do not take the day of surgery lisinopril (ZESTRIL) 5 mg tablet Do not take the day of surgery sodium phosphate,mono-dibasic (FLEET ENEMA RECTAL) Do not take the day of surgery dextrose (GLUCOSE GEL ORAL) Do not take the day of surgery sertraline (ZOLOFT) 50 mg tablet Do not take the day of surgery acetaZOLAMIDE (DIAMOX) 250 mg tablet Do not take the day of surgery pantoprazole DR (PROTONIX) 40 mg tablet Use day of surgery. GLUCAGON EMERGENCY KIT, HUMAN, INJECTION Do not take the day of surgery Sennosides 8.6 mg cap Do not take the day of surgery traMADol (ULTRAM) 50 mg tablet Continue as needed apixaban (ELIQUIS) 5 mg tab(s) Last dose on the night of August 03, 2025 bicalutamide (CASODEX) 50 mg tablet Do not take the day of surgery CPAP Continue using as usual If you start any new medications after today's visit, please contact the surgeon's office. If you are currently using a [id number] injectable or oral medication for diabetes or weight loss such as Dulaglutide (Trulicity), Exenatide (Byetta, Bydureon), Liraglutide (Victoza, Saxenda), Semaglutide (Ozempic, Wegovy, Rybelsus), or Tirzepatide (Mounjaro), the medicine should be stopped at least 7 days before surgery. These medicines can cause food to remain in your stomach for a very long time and increase the risks from surgery and anesthesia. Not stopping the medication for a long enough time may result in your surgery being rescheduled. Blood Thinning Medications: - Stop NSAIDS (Ibuprofen, Advil, Aleve, Motrin, Celebrex, Mobic, etc.) 7 days before surgery, as directed by your surgeon. - Stop Aspirin 7 days before surgery, as directed by your surgeon. Important Reminders: - If you use CPAP/BIPAP, bring the machine with you to the surgery center. - Candy, mints, and tobacco products are NOT permitted the morning of surgery. - Hearing aids, dentures and glasses may be worn the morning of surgery. - NO jewelry, body piercings, makeup, hairpins or contacts are to be worn the day of surgery. If you develop symptoms such as a fever, cold, or flu, or have other changes to your health within TWO DAYS of scheduled surgery or the morning of surgery, please contact the surgery center above. Personal Belongings: -Please have photo ID and insurance cards. -If you do not have a copy of advance directives on file with us, please bring a copy with you on the day of surgery. - Leave ALL valuables and money at home or with family members. - Please bring high-quality footwear, such as sneakers, to the hospital for ambulating post-surgery. Arrival Time for Surgery: - The Surgery Center or hospital where you are having surgery will call the afternoon before surgery (or Tuesday for Tuesday surgery) with a scheduled arrival time. - If you have not heard by 4 pm, please contact the surgery center above. Please be aware that emergency situations arise, which may delay or change your surgical time. If this happens, we will notify you as soon as possible and regret any inconvenience. If you already have an Advance Directive, please fax a copy to [phone] or email to for it to be added to your chart. If you do not have an Advance Directive, you can find the appropriate form and more information at [email or web address]. We recommend that you complete the Advance Directive form found on the website and bring it with you the day of your surgery. It can be witnessed and scanned into your chart that day. Lupe Rsuhing MD documented in this encounter [facility] 07-17-2025 History and physical note Images from the original note were not included. [facility] HISTORY AND PHYSICAL EXAMINATION SERVICE DATE: 07/17/2025 SERVICE TIME: 12:10 PM PRIMARY CARE PHYSICIAN: Elisa Narvaez MD Assessment Patient has the following medical conditions which may affect rosaura-operative course: # Wheelchair bound, cannot stand on legs, immobility, SNF resident # Afib- s/p cardioversion, on apixaban, taken off Carvedilol due to low HR in the 30s # CHF, non ischemic- EF 25 % in 2022 on Bumex and Acetazolamide, not on other GDMT but this is likely limited due to BP, today 95/58. BB stopped in February 2025 due to HR in 30s. Has ICD, gets cardiology care at [facility], last ICD check last month per POA Has hx of severe pulm HTN back in 2018 with RV moderate dysfunction, this appears to have improved on most recent echo in 2022 showing mild RV systolic dysfunction and RVSP of 63 mm Hg. 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 Nevertheless, high risk with anesthesia given RVSP of 63 mm Hg. D/w anesthesia who recommended cardiology and pulm HTN consults, these have been placed. # CVA 2010 # CAD/STEMI-- catheterization revealed 100% occlusion of the distal ramus with unsuccessful thrombectomy attempt. Per records, this was a new lesion from his previous catheterization in August that year. Is not on a statin or Aspirin, # ALBINO- on CPAP # Parkinson's- on sinemet # DM,- on Trulicity and Lantus 7 units HS, last A1C 8.1 in 2022 # HTN - on Lisinopril # Prostate cancer- follows with oncology- on ELigard, Denosumab and Bicalutamide # Meningioma- s/p resection # Prior c/f cirrhosis but this is unlikely per last 2 hepatology visits- labs are normal and liver stiffness has improved from 31 to 7 pkA. # Hyperparathyroidism- seen by endo, on Prolia RCRI of 4, high risk of major adverse cardiac events. ANESTHESIA FINDINGS: Intubation History: No history of difficult intubation Significant Anesthesia Considerations: has never had anesthesia Airway History: No history of difficult airway Day Activity Status Index: METS: Cannot walk indoors, such as around the house Cannot do light work around the house, such as dusting or washing dishes Cannot take care of self; that is eating, dressing, bathing, using the toilet Cannot walk a block or two on level ground Cannot do moderate work around the house, such as vacuuming, sweeping floors, or carrying in groceries Cannot do yardwork, such as raking leaves, weeding, or pushing a power mower Cannot have sexual relations Cannot climb a flight of stairs or walk up a hill Cannot participate in moderate recreational activites, such as golf, bowling, dancing, doubles tennis, or throwing a baseball or football Cannot participate in strenuous sport, such as swimming, singles tennis, football, basketball, or skiing Cannot do heavy work around the house, such as scrubbing floors, lifting or moving heavy furniture Cannot run a short distance DASI Score: 0 Patient is totally dependent. Clinical Frailty Scale: 7. Severely frail [id number] Score: Age: 65-74 Sex: male CHF history: Yes Hypertension history: Yes Stroke/TIA/thromboembolism history: Yes Vascular disease history: Yes Diabetes history: Yes [id number] Score: 7 ASA Class: 5 I - PHYSICAL EVALUATION AIRWAY Patient intubated: No. Tracheostomy tube not present Mallampati: III. TM distance: >3 FB. Neck ROM: full ROM without neurological symptoms. Mouth openin FB. Short neck: no. Thick neck: no Howard present: no Lip Bite Test: II Microretrognathia/Micronagthia/ Recessed Chin: No DENTAL Dental findings: teeth intact. II - ANESTHESIA PLAN ASA Score: 5 Anesthetic Plan: other Anesthetic plan additional comments: *PACC/TCI - anesthesia choice. Informed Consent Patient / Surrogate agrees to blood products: Yes Prepared for Surgery: NOT optimally prepared for surgery. Pending labs and EKG and cardiology and pulm HTN consults CONSULTS: The following consults have been initiated at this time: cardiology and pulmonary. Planned Anesthetic: other anesthesia choice The Following Tests/Procedures Have Been Initiated: No orders of the defined types were placed in this encounter. REASON FOR VISIT: Steph Baumann is a 75 year old male who is scheduled for Procedure(s): HERNIORRHAPHY INGUINAL INITIAL HERNIA >5 YRS REDUCIBLE (ELECTIVE) (Right) at the request of Dr. Hung Ridley for consultation. My final recommendation will be communicated back to the requesting physician by way of shared medical record or letter. Subjective The patient has the following: COVID-19 Immunization Status This patient has no relevant Health Maintenance data. CHIEF COMPLAINT: Pre-op HPI: See A/P REVIEW OF SYSTEMS: General: No weight loss, malaise or fevers. 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 Respiratory: Positive for: obstructive sleep apnea and CPAP/BiPAP compliant. Cardiovascular: Positive for: CHF GI: Positive for: liver disease : No history of dysuria, frequency or incontinence, stones or chronic kidney disease. No difficulty urinating, nocturia > 1 time per night or hematuria. Endocrine: Positive for: diabetes mellitus. Patient's diabetes mellitus is controlled by insulin. Hematology: No history of bleeding or clotting disorder. Patient is not taking anti-coagulation or platelet medications. No history of hematological symptoms or problems. Oncology: See HPI. Psych: No history of psychiatric symptoms or problems. Musculoskeletal: Negative for joint pain or swelling, back pain or muscle pain. Skin: Negative for lesions, rash and itching. Implanted Devices: Has implanted device The patient has the following comorbidities: Cancer, Solid tumor without metastasis, malignancy of genital organs Cardiac arrhythmias Afib Heart failure Cerebrovascular disease Diabetes mellitus Hypertension Liver disease Neurologic disorder affecting movement Peripheral vascular disorder Seizures/Epilepsy Continue current outpatient treatment plan and current medications for these conditions, except where otherwise noted. 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 Adjust dose as directed Patient taking differently: Inject 8 Units subcutaneously daily [...] 1 capsule by mouth once daily. No medication comments found. ALLERGIES Allergen Reactions Metformin Diarrhea Even low dose caused diarrhea Oxycodone-Acetamino* Unknown Objective PHYSICAL EXAM: General: alert and oriented and healthy appearance. Pertinent negatives noted - not distressed. Skin: normal color, no rash or lesions. HEENT: Cardiovascular: regular rate and rhythm, normal S1 and S2, no rub, murmurs, or gallop. Respiratory: normal breath sounds, no wheezes or crackles. No chest wall deformity or tenderness. Abdomen: bowel sounds present and soft. Pertinent negatives noted - not tender. Extremities: no deformity, no edema or tenderness, no joint swelling or clubbing. Neurological: PAIN ASSESSMENT: Pain Pain Level: 8 Pain Location: Hip-Right Frequency: Continuous VITALS: BP 95/58 Pulse 66 Temp (Src) 97.2 (Temporal) Ht 5' 9" (1.75m) Wt 172 lb (78.0kg) SpO2 97% BMI 25.39 kg/(m^2). Diagnostic tests reviewed for today's visit: Lab Value Units Date High Low HB 11.8 g/dL 07/17/2025 17.0 13.0 HCT 38.1 % 07/17/2025 51.0 39.0 WBC 5.85 k/uL 07/17/2025 11.00 3.70 PLT 158 k/uL 07/17/2025 400 150 NA 136 mmol/L 02/13/2025 144 136 K 4.1 mmol/L 02/13/2025 5.1 3.7 GLUC 138 mg/dL 02/13/2025 99 74 BUN 22 mg/dL 02/13/2025 24 9 CREAT 0.96 mg/dL 02/13/2025 1.22 0.73 PTSEC 13.6 sec 07/17/2025 13.0 9.7 INR 1.3 no uni* 07/17/2025 1.3 0.9 APTT 34.3 sec 07/17/2025 32.4 23.0 ALT 7 U/L 02/13/2025 54 10 AST 15 U/L 02/13/2025 40 14 TBILI 0.3 mg/dL 02/13/2025 1.3 0.2 TSH No results within date range. Lab Value Units Date High Low HCGQT No results within date range. UHCG No results within date range. HCG, BODY* No results within date range. Lab Value Units Date High Low ABORHD No results within date range. ABSCREEN No results within date range. Hemoglobin A1C (%) Date Value 01/07/2022 11.1 03/26/2021 9.6 12/11/2020 7.7 04/02/2020 7.1 11/06/2019 5.9 07/19/2019 6.1 Hemoglobin A1C (POCT) (%) Date Value 03/23/2023 8.1 10/01/2022 7.6 04/28/2022 6.9 No results found for this or any previous visit (from the past 8760 hours). No results found for this or any previous visit (from the past 30221 hours). Instructions Given to Patient: Instructions located in the after visit summary. Patient given verbal and written preop instructions and voices comprehension and compliance. SIGNATURE: Lupe Rushing MD PATIENT NAME: Steph Baumann DATE: July 17, 2025 TIME: 12:10 PM PAGER/CONTACT #: [1] Social History Tobacco Use Smoking status: Former Current packs/day: 0.00 Average packs/day: 1 pack/day for 46.0 years (46.0 ttl pk-yrs) Types: Cigarettes Start date: 07/20/1967 Quit date: 07/20/2013 Years since quittin.0 Smokeless tobacco: Never Vaping Use Vaping status: Never Used Substance Use Topics Alcohol use: No Drug use: No Comment: Remote drugs, quit 1994. [facility] 07-17-2025 History and physical note Images from the original note were not included. [facility] HISTORY AND PHYSICAL EXAMINATION SERVICE DATE: 07/17/2025 SERVICE TIME: 12:10 PM PRIMARY CARE PHYSICIAN: Elisa Narvaez MD Assessment Patient has the following medical conditions which may affect rosaura-operative course: # Wheelchair bound, cannot stand on legs, immobility, SNF resident # Afib- s/p cardioversion, on apixaban, taken off Carvedilol due to low HR in the 30s # CHF, non ischemic- EF 25 % in 2022 on Bumex and Acetazolamide, not on other GDMT but this is likely limited due to BP, today 95/58. BB stopped in February 2025 due to HR in 30s. Has ICD, gets cardiology care at [facility], last ICD check last month per POA Has hx of severe pulm HTN back in 2018 with RV moderate dysfunction, this appears to have improved on most recent echo in 2022 showing mild RV systolic dysfunction and RVSP of 63 mm Hg. 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 Nevertheless, high risk with anesthesia given RVSP of 63 mm Hg. D/w anesthesia who recommended cardiology and pulm HTN consults, these have been placed. # CVA 2010 # CAD/STEMI-- catheterization revealed 100% occlusion of the distal ramus with unsuccessful thrombectomy attempt. Per records, this was a new lesion from his previous catheterization in August that year. Is not on a statin or Aspirin, # ALBINO- on CPAP # Parkinson's- on sinemet # DM,- on Trulicity and Lantus 7 units HS, last A1C 8.1 in 2022 # HTN - on Lisinopril # Prostate cancer- follows with oncology- on ELigard, Denosumab and Bicalutamide # Meningioma- s/p resection # Prior c/f cirrhosis but this is unlikely per last 2 hepatology visits- labs are normal and liver stiffness has improved from 31 to 7 pkA. # Hyperparathyroidism- seen by endo, on Prolia RCRI of 4, high risk of major adverse cardiac events. ANESTHESIA FINDINGS: Intubation History: No history of difficult intubation Significant Anesthesia Considerations: has never had anesthesia Airway History: No history of difficult airway Day Activity Status Index: METS: Cannot walk indoors, such as around the house Cannot do light work around the house, such as dusting or washing dishes Cannot take care of self; that is eating, dressing, bathing, using the toilet Cannot walk a block or two on level ground Cannot do moderate work around the house, such as vacuuming, sweeping floors, or carrying in groceries Cannot do yardwork, such as raking leaves, weeding, or pushing a power mower Cannot have sexual relations Cannot climb a flight of stairs or walk up a hill Cannot participate in moderate recreational activites, such as golf, bowling, dancing, doubles tennis, or throwing a baseball or football Cannot participate in strenuous sport, such as swimming, singles tennis, football, basketball, or skiing Cannot do heavy work around the house, such as scrubbing floors, lifting or moving heavy furniture Cannot run a short distance DASI Score: 0 Patient is totally dependent. Clinical Frailty Scale: 7. Severely frail [id number] Score: Age: 65-74 Sex: male CHF history: Yes Hypertension history: Yes Stroke/TIA/thromboembolism history: Yes Vascular disease history: Yes Diabetes history: Yes [id number] Score: 7 ASA Class: 5 I - PHYSICAL EVALUATION AIRWAY Patient intubated: No. Tracheostomy tube not present Mallampati: III. TM distance: >3 FB. Neck ROM: full ROM without neurological symptoms. Mouth openin FB. Short neck: no. Thick neck: no Howard present: no Lip Bite Test: II Microretrognathia/Micronagthia/ Recessed Chin: No DENTAL Dental findings: teeth intact. II - ANESTHESIA PLAN ASA Score: 5 Anesthetic Plan: other Anesthetic plan additional comments: *PACC/TCI - anesthesia choice. Informed Consent Patient / Surrogate agrees to blood products: Yes Prepared for Surgery: NOT optimally prepared for surgery. Pending labs and EKG and cardiology and pulm HTN consults CONSULTS: The following consults have been initiated at this time: cardiology and pulmonary. Planned Anesthetic: other anesthesia choice The Following Tests/Procedures Have Been Initiated: No orders of the defined types were placed in this encounter. REASON FOR VISIT: Steph Baumann is a 75 year old male who is scheduled for Procedure(s): HERNIORRHAPHY INGUINAL INITIAL HERNIA >5 YRS REDUCIBLE (ELECTIVE) (Right) at the request of Dr. Hung Ridley for consultation. My final recommendation will be communicated back to the requesting physician by way of shared medical record or letter. Subjective The patient has the following: COVID-19 Immunization Status This patient has no relevant Health Maintenance data. CHIEF COMPLAINT: Pre-op HPI: See A/P REVIEW OF SYSTEMS: General: No weight loss, malaise or fevers. 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 Respiratory: Positive for: obstructive sleep apnea and CPAP/BiPAP compliant. Cardiovascular: Positive for: CHF GI: Positive for: liver disease : No history of dysuria, frequency or incontinence, stones or chronic kidney disease. No difficulty urinating, nocturia > 1 time per night or hematuria. Endocrine: Positive for: diabetes mellitus. Patient's diabetes mellitus is controlled by insulin. Hematology: No history of bleeding or clotting disorder. Patient is not taking anti-coagulation or platelet medications. No history of hematological symptoms or problems. Oncology: See HPI. Psych: No history of psychiatric symptoms or problems. Musculoskeletal: Negative for joint pain or swelling, back pain or muscle pain. Skin: Negative for lesions, rash and itching. Implanted Devices: Has implanted device The patient has the following comorbidities: Cancer, Solid tumor without metastasis, malignancy of genital organs Cardiac arrhythmias Afib Heart failure Cerebrovascular disease Diabetes mellitus Hypertension Liver disease Neurologic disorder affecting movement Peripheral vascular disorder Seizures/Epilepsy Continue current outpatient treatment plan and current medications for these conditions, except where otherwise noted. 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 Adjust dose as directed Patient taking differently: Inject 8 Units subcutaneously daily [...] 1 capsule by mouth once daily. No medication comments found. ALLERGIES Allergen Reactions Metformin Diarrhea Even low dose caused diarrhea Oxycodone-Acetamino* Unknown Objective PHYSICAL EXAM: General: alert and oriented and healthy appearance. Pertinent negatives noted - not distressed. Skin: normal color, no rash or lesions. HEENT: Cardiovascular: regular rate and rhythm, normal S1 and S2, no rub, murmurs, or gallop. Respiratory: normal breath sounds, no wheezes or crackles. No chest wall deformity or tenderness. Abdomen: bowel sounds present and soft. Pertinent negatives noted - not tender. Extremities: no deformity, no edema or tenderness, no joint swelling or clubbing. Neurological: PAIN ASSESSMENT: Pain Pain Level: 8 Pain Location: Hip-Right Frequency: Continuous VITALS: BP 95/58 Pulse 66 Temp (Src) 97.2 (Temporal) Ht 5' 9" (1.75m) Wt 172 lb (78.0kg) SpO2 97% BMI 25.39 kg/(m^2). Diagnostic tests reviewed for today's visit: Lab Value Units Date High Low HB 11.8 g/dL 07/17/2025 17.0 13.0 HCT 38.1 % 07/17/2025 51.0 39.0 WBC 5.85 k/uL 07/17/2025 11.00 3.70 PLT 158 k/uL 07/17/2025 400 150 NA 136 mmol/L 02/13/2025 144 136 K 4.1 mmol/L 02/13/2025 5.1 3.7 GLUC 138 mg/dL 02/13/2025 99 74 BUN 22 mg/dL 02/13/2025 24 9 CREAT 0.96 mg/dL 02/13/2025 1.22 0.73 PTSEC 13.6 sec 07/17/2025 13.0 9.7 INR 1.3 no uni* 07/17/2025 1.3 0.9 APTT 34.3 sec 07/17/2025 32.4 23.0 ALT 7 U/L 02/13/2025 54 10 AST 15 U/L 02/13/2025 40 14 TBILI 0.3 mg/dL 02/13/2025 1.3 0.2 TSH No results within date range. Lab Value Units Date High Low HCGQT No results within date range. UHCG No results within date range. HCG, BODY* No results within date range. Lab Value Units Date High Low ABORHD No results within date range. ABSCREEN No results within date range. Hemoglobin A1C (%) Date Value 01/07/2022 11.1 03/26/2021 9.6 12/11/2020 7.7 04/02/2020 7.1 11/06/2019 5.9 07/19/2019 6.1 Hemoglobin A1C (POCT) (%) Date Value 03/23/2023 8.1 10/01/2022 7.6 04/28/2022 6.9 No results found for this or any previous visit (from the past 8760 hours). No results found for this or any previous visit (from the past 36620 hours). Instructions Given to Patient: Instructions located in the after visit summary. Patient given verbal and written preop instructions and voices comprehension and compliance. SIGNATURE: Lupe Rushing MD PATIENT NAME: Steph Baumann DATE: July 17, 2025 TIME: 12:10 PM PAGER/CONTACT #: [1] Social History Tobacco Use Smoking status: Former Current packs/day: 0.00 Average packs/day: 1 pack/day for 46.0 years (46.0 ttl pk-yrs) Types: Cigarettes Start date: 07/20/1967 Quit date: 07/20/2013 Years since quittin.0 Smokeless tobacco: Never Vaping Use Vaping status: Never Used Substance Use Topics Alcohol use: No Drug use: No Comment: Remote drugs, quit 1994. documented in this encounter [facility] 07-17-2025 Instructions Merlin Loredo MD - 07/17/2025 11:12 AM EDT We discussed your liver health: - Your liver appears to have improved significantly. Your most recent FibroScan (1 year ago) showed 7.1 kilopascals, which is a marked improvement from prior results and strongly suggests the absence of cirrhosis.. The ultrasound from February 2023 showed no signs of cirrhosis or masses, and today s preliminary ultrasound images also do not show any ascites (fluid in the abdominal cavity). We will confirm this with the radiologist s official report. - Your INR (a marker of liver function) from today s lab work is normal at 1.3. - We will continue to monitor your liver health with ultrasounds every 6 months to screen for liver cancer, as individuals with a history of cirrhosis remain at risk even if the cirrhosis resolves. We discussed your upcoming hernia surgery: - From a liver standpoint, you are cleared for surgery. I will document this in my note for Dr. Arnett. - I will also follow up with Dr. Arnett to ensure your medications, including water pills, are optimized before surgery. - Your February 2023 ultrasound showed no ascites, and today s preliminary ultrasound images also do not show any fluid buildup, which is reassuring for your surgical team. We discussed your pulmonary hypertension and heart health: - Your pulmonary hypertension is being managed by Dr. Hopkins and your heart doctor. Please continue follow-up care with them as needed. - Your last echocardiogram (from last year) showed almost no tricuspid insufficiency, which is an improvement from prior findings. Follow-up plan: - Please schedule your next ultrasound and follow-up visit with me in 6 months. We will continue to monitor your liver health and ensure there are no new concerns. - If you have any questions or concerns about your upcoming surgery or other health issues, please reach out to me. Reminders: - Continue to avoid excess salt in your diet, as it can contribute to fluid retention and other health issues. - Let me know if you experience any new or worsening symptoms, such as abdominal swelling, jaundice, or changes in your overall health. Good luck with your hernia surgery, and I look forward to seeing you at your next visit. 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 OPERATOR: No RADIOLOGY DEPARTMENT: Ultrasound PERIPHERAL IV DATA: Not applicable SIGNED BY: Syeda Prado RDMS July 17, 2025 10:30 AM documented in this encounter [facility] 07-17-2025 Note HNO ID: [id number] Author: SYEDA PRADO RDMS Service: Radiology Author Type: Technologist Type: Progress Notes Filed: 07/17/2025 10:30 Note Text: Radiology Service Progress Note PATIENT NAME: Steph Baumann DATE OF SERVICE: July 17, 2025 TIME: 10:30 AM PATIENT IDENTITY VERIFICATION COMPLETED USING TWO [...] Instructed Patient to Call for Help if Needed PATIENT GENDER DATA: Assigned male at PATIENT RELEVANT IMPLANT DATA REVIEWED: Not Applicable PATIENT PRESENTS WITH AN IMPLANTABLE OR ATTACHED COVERSTITCH MACHINE OPERATOR: No RADIOLOGY DEPARTMENT: Ultrasound PERIPHERAL IV DATA: Not applicable SIGNED BY: Syeda Prado RDMS July 17, 2025 10:30 AM [facility] 06-18-2025 Procedure note [facility] 05-29-2025 Note HNO ID: [id number] Author: GLENDA HUMPHREY LPN Service: ? Author Type: LICENSED NURSE Type: Progress Notes Filed: 05/29/2025 14:13 Note Text: Patient here for injection of Eligard. Given SQ in LLQ. Patient tolerated well. Glenda Humphrey LPN [facility] 05-29-2025 History of Present illness Narrative Patient here for injection of Eligard. Given SQ in LLQ. Patient tolerated well. Glenda Humphrey LPN documented in this encounter [facility] 05-16-2025 Note HNO ID: [id number] Author: EL ARNETT MD Service: ? Author Type: Physician Type: [...] is a friend of the family from [place] and the decision clearly weighs heavily on her so she understands the risks but also wants to give him agency in the decision and he clearly wants to move forward. Given his comorbidities we'll plan for at least a 2 night hospital stay before return to his SNF where he lives. El Arnett MD I have seen and evaluated the patient and discussed the case with the resident physician. I agree with the assessment and plan as documented in the resident?s note including a ROS that was reviewed and negative other than what was indicated in our notes. Patient consented for study? Not applicable [facility] 05-16-2025 History of Present illness Narrative [...] is a friend of the family from [place] and the decision clearly weighs heavily on her so she understands the risks but also wants to give him agency in the decision and he clearly wants to move forward. Given his comorbidities we'll plan for at least a 2 night hospital stay before return to his SNF where he lives. El Arnett MD I have seen and evaluated the patient and discussed the case with the resident physician. I agree with the assessment and plan as documented in the resident s note including a ROS that was reviewed and negative other than what was indicated in our notes. Patient consented for study? Not applicable Images from the original note were not included. CLINIC NOTE Steph Bamuann [id number] SUBJECTIVE: Steph Baumann is a 74 year old male with PMHx of HTN, afib (on eiliquis), CHF s/p ICD, T2DM, liver cirrhosis, portal HTN, ALBINO, BPH who presents to clinic for evaluation of right inguinal hernia on 05/16/[address] Arnett. He was last seen by Dr. Arnett on 03/09/2021 for hernia, but was asymptomatic [...] right inguinal hernia on 05/16/[address] Arnett. Discussed the risks and benefits of undergoing [...] Office will reach out to schedule procedure Skylar Soriano, MS4 General Surgery May 16, 2025 3:06 PM Hernia Team Emiliano (Otto Kendrick Rosenblatt): [phone] [address] (Ce Bhatia Petro): [phone] After 6PM + weekends: [phone] What is the reason for your visit today? EST Who is your referring physician? Dr. Arnett Are you having poor oral intake? NO Have you had unintentional weight loss of 15 lbs/7 Kg in the last 3-6 months? NO Bowels: regular Wound: clean & dry Temperature: No Drains: No documented in this encounter [facility] 05-16-2025 Note HNO ID: [id number] Author: ?, ?, ? Service: ? Author Type: ? Type: Progress Notes Filed: 05/16/2025 16:51 Note Text: CLINIC NOTE Steph Baumann [id number] SUBJECTIVE: Steph Baumann is a 74 year old male with PMHx of HTN, afib (on eiliquis), CHF s/p ICD, T2DM, liver cirrhosis, portal HTN, ALBINO, BPH who presents to clinic for evaluation of right inguinal hernia on 05/16/[address] Arnett. He was last seen by Dr. Arnett on 03/09/2021 for hernia, but was asymptomatic [...] right inguinal hernia on 05/16/[address] Arnett. Discussed the risks and benefits of undergoing [...] Office will reach out to schedule procedure Skylar Soriano, MS4 General Surgery May 16, 2025 3:06 PM Hernia Team Emiliano (Otto Kendrick Rosenblatt): [phone] Mirza (Ce Bhatia Petro): [phone] After 6PM + weekends: [phone] [facility] 05-16-2025 Note HNO ID: [id number] Author: ?, ?, ? Service: ? Author Type: ? Type: Progress Notes Filed: 05/16/2025 17:08 Note Text: What is the reason for your visit today? EST Who is your referring physician? Dr. Arnett Are you having poor oral intake? NO Have you had unintentional weight loss of 15 lbs/7 Kg in the last 3-6 months? NO Bowels: regular Wound: clean AND dry Temperature: No Drains: No [facility] 03-07-2025 Telephone encounter Note Bob called back and was given the below information Marilynn Cantu [facility] 03-07-2025 Miscellaneous Notes Bob called back and was given the below information Marilynn Cantu I left a message for Bob asking her to check the patient's MyChart messages. Thania Santos LPN Can let his friend Bob know that his PSA remains undetectable. documented in this encounter [facility] 03-07-2025 Telephone encounter Note I left a message for Bob asking her to check the patient's MyChart messages. Thania Santos LPN [facility] 03-07-2025 Progress note Formatting of t his note might be different from the original. Can let his friend Bob know that his PSA remains undetectable. [facility] Work Phone: 03-06-2025 Note HNO ID: [id number] Author: GLENDA HUMPHREY LPN Service: ? Author Type: LICENSED NURSE Type: Progress Notes Filed: 03/06/2025 11:57 Note Text: Patient here for injection of Prolia given SQ in right arm and Eligard given SQ in LLQ. Patient tolerated well. See OV with Dr Kothari today. Glenda Humphrey LPN [facility] 03-06-2025 History of Present illness Narrative Patient here for injection of Prolia given SQ in right arm and Eligard given SQ in LLQ. Patient tolerated well. See OV with Dr Kothari today. Glenda Humphrey LPN documented in this encounter [facility] 03-06-2025 Note Addended by: JONNATHAN KOTHARI on: 03/06/2025 11:24 AM Modules accepted: Orders [facility] 03-06-2025 Miscellaneous Notes Addended by: JONNATHAN KOTHARI on: 03/06/2025 11:24 AM Modules accepted: Orders documented in this encounter [facility] 03-06-2025 Note HNO ID: [id number] Author: JONNATHAN KOTHARI DO Service: ? Author Type: Physician Type: [...] biopsy on 11/12/2021. All 4 cores demonstrated [place] grade 7, 2 of the cores were [...] for cirrhosis. Here today with POA from [place] (daughter's friend). Visits him every 2 weeks. Diagnosed with Parkinsons in April. Requires wheelchair. Was independent prior to that. Living [place] [facility] [place] 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 [facility] 03-06-2025 History of Present illness Narrative [...] for cirrhosis. Here today with POA from [place] (daughter's friend). Visits him every 2 weeks. Diagnosed with Parkinsons in April. Requires wheelchair. Was independent prior to that. Living [place] [facility] [place]. 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 [facility] current use of insulin (HCC) Metabolic encephalopathy [...] -I verified bicalutamide on med list at [facility]. -PSA undetectable as of 12/2024. - On [...] and edited and updated as necessary. Jonnathan Kothari DO documented in this encounter [facility] 02-15-2025 Telephone encounter Note Nurse called vik Rojas. She confirmed pt name and Nurse relayed update to Bob Rojas is pleased w/ the update. She had no further questions or concerns Mayra Benton RN February 15, 2025 2:50 PM [facility] 02-15-2025 Miscellaneous Notes Nurse called vik [...] a rt call. documented in this encounter [facility] 02-15-2025 Telephone encounter Note Osas, Please let Bob know I have reviewed the lab tests and liver tests are normal. Thee were no surprises. We discussed other test results in office. Let me know if she has additional questions. Merlin Loredo MD [facility] Work Phone: 02-14-2025 Telephone encounter Note Patient called to discuss his most recent lab results, she would like a rt call. [facility] 02-13-2025 Instructions Merlin Loredo MD - [...] If everything is normal, my nurse or personal secretary will notify you. If there are any concerns, I will contact you directly. You can also check your results on [employer]. Follow-up plan: - Continue with liver ultrasounds every 6 months to monitor for any potential issues. - If you have any questions or concerns, please reach out to our office. documented in this encounter [facility] 02-13-2025 Note HNO ID: [id number] Author: MERLIN LOREDO MD Service: ? 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 [facility] current use of insulin (HCC) Metabolic encephalopathy [...] risk. - Follow-up (more content not included)... 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 Author Type: Turbinated Bone Grinder Type: Progress Notes Filed: 02/13/2025 13:48 Note [...] PATIENT PRESENTS WITH AN IMPLANTABLE OR ATTACHED COVERSTITCH MACHINE OPERATOR: No RADIOLOGY DEPARTMENT: Ultrasound PERIPHERAL IV DATA: Not applicable SIGNED BY: Marilynn Lanza RDMS February 13, 2025 1:48 PM [facility] 12-12-2024 Note HNO ID: [id number] Author: GLENDA HUMPHREY LPN Service: ? Author Type: LICENSED NURSE Type: Progress Notes Filed: 12/12/2024 15:50 Note Text: Patient here for injection of Eligard. Given SQ in RLQ. Patient tolerated well. Glenda Humphrey LPN [facility] 12-12-2024 History of Present illness Narrative Patient here for injection of Eligard. Given SQ in RLQ. Patient tolerated well. Glenda Humphrey LPN documented in this encounter [facility] 12-12-2024 Evaluation note Diagnosis Onset Date [...] Parkinson's disease inactive January 24, 2025 8:21am [facility] Work Phone: [phone] Note* Addendum Note - Mayra Benton RN - 10/22/2024 1:47 PM ESTAddended by: MAYRA BENTON on: 10/22/2024 01:47 PM Modules accepted: Orders [facility]12-16-2024 Miscellaneous Notes* Addendum Note - Mayra [...] new lab orders, 12/01 Luz Elena Snell Technical Illustrator ll documented in this encounterOhio[facility]12-16-2024 Telephone encounter Note * Telephone Encounter - Mayra Benton RN - 10/22/2024 1:46 PM EST Orders pended with later expiry date Mayra Benton RN October 22, 2024 1:47 PM [facility]12-16-2024 Telephone encounter Note* Telephone Encounter - Luz Elena Snell - 10/22/2024 1:[address] new lab orders, 12/01 Luz Elena Snell Technical Illustrator ll [facility]11-13-2024 NoteHNO ID: [id number] Author: GLENDA HUMPHREY LPN Service: ? Author Type: LICENSED NURSE Type: Progress Notes Filed: 09/19/2024 15:34 Note Text: Pt here for injection of Eligard. Given SQ in abd LLQ. Pt tolerated well. [facility] History of Present illness Narrative* Glenda Humphrey LPN - 09/19/2024 3:30 PM EST Pt here for injection of Eligard. Given SQ in abd LLQ. Pt tolerated well. Glenda Humphrey LPN documented in this encounterOhio[facility]10-30[facility] History of Present illness Narrative* Lissy Anna - 09/05/2024 11:07 AM EDT Steph Baumann [...] for cirrhosis. Here today with POA from [place] (daughter's friend). Visits him every 2 weeks. Diagnosed with Parkinsons in April. Requires wheelchair. Was independent prior to that. Living [place] [facility] [place] 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 [facility] current use of insulin (HCC) Metabolic encephalopathy [...] months. OV in 6 months with injection Lissy Anna APRN.DEFECT CUTTER I spent a total of 30 minutes on the date of the service which included preparing to see the patient, [id number] patient care, completing clinical documentation, and performing [...] evaluation of this patient. [facility] in [facility] encounter[facility] History of Present illness Narrative* Merlin [...] counseling Merlin Loredo MD documented in this encounterOhio[facility]10-[facility]24 History of Present illness Narrative* Parisa Miller APRN.JONG - 08/28/2024 9:31 AM EDT Fibroscan Report Date performed: August 28, 2024 Performed by: Syeda Alexander RN Interpreted by: Parisa Miller APRN, JONG Patient fasted 3 hours:Yes [...] testing to confirm and referral to hepatology. Parisa Miller APRN.DEFECT CUTTER Alcoholic Liver disease Fibroscan Fibrosis Risk <7 [...] 66% steatosis) Reference Blake Y, Ariel Q, Lozano T, Jayde J, Blake H, Ruth T. Controlled attenuation parameter for assessment of hepatic steatosis grades: a diagnostic meta-analysis. Int J Clin Exp Med. 2015 Aug 15;8(10):57924-12.PMID: 00917009; PMCID: [id number]. Stuart Fuentes, Russel MOHAN, Lukasz M, Carie F, Chasidy J, Marek O, Richard F, Harjit M, Evangelista G, Anahy A, Hien E, Herve L, Zahraa Stack, Reese Johnson, Vivian U, Sariah S, Debora, Quirino V, Vaughn V, Genevieve M, Ajit BARRIOS. Refining the Baveno elastography criteria for the definition of compensated advanced chronic liver disease. J Hepatol. 2020;74(5):5138-9500. doi: 10.1016/j.jhep.2020.11.050. Epub 2019Oct 15. PMID: 97980894. Renita Fuentes, Dorie Wang, Nallely Fuentes, Raghav Fuentes, Willis S, Velvet Chávez, Karli Chávez, Swati Giordano.AASLD practice guidance on the clinical assessment and management of nonalcoholic fatty liver disease. Hepatology. 2022;77(5):1797- 1835. doi:10.1097/HEP.[id number] documented in this encounterOhio[facility]10-16-2024 Nurse Note* Tarsha Vincent RN - 08/22/2024 11:47 AM EDT AMBULATORY [...] MATERIAL: Procedure Discharge Instructions REFERRAL (RECOMMENDATION): None [facility]10-16-2024 Nurse Note* Tarsha Vincent RN - 08/22/2024 11:47 AM EDT AMBULATORY [...] RN In Department: GASTROENTEROLOGY documented in this encounterOhiohealth [facility]10-16-2024 History and physical note * Alfred Mariee MD - 08/22/2024 10:30 AM EDT HISTORY AND PHYSICAL Steph Godwin Baumann, 74 year old male Current history [...] organomegaly. Sedation Plan: Moderate Additional Comments: None Alfred Ramsey MD [facility] Work Phone: [phone] History and physical note* Alfred Mariee MD - 08/22/2024 10:30 AM EDT [...] organomegaly. Sedation Plan: Moderate Additional Comments: None Alfred Ramsey MD documented in this encounterOhiohealth [facility] Hospital10-16-2024 Nurse Note* Harjeet Del Angel RN [...] HARJEET DEL ANGEL RN In Department: GASTROENTEROLOGY T [facility]10-08-2024 Telephone encounter Note* Telephone Encounter - Nancy Fontaine RN - 08/14/2024 10:22 AM EDT Attempted to reach the patient at the contact number that they provided [phone] (home) . Unable to speak with patient so without identifying the patient the following information was left on their voice mail: Date of procedure, location and report time Prep instructions A message was left informing the patient/patient liability claims representative they must have a responsible adult [...] Number to call with questions or concerns [phone] Number to call to cancel their procedure [phone] [facility]10-08-2024 Miscellaneous Notes* Telephone Encounter - Nancy Fontaine RN - 08/14/2024 10:22 AM EDT Attempted to reach the patient at the contact number that they provided [phone] (home) . Unable to speak with patient so without identifying the patient the following information was left on their voice mail: Date of procedure, location and report time Prep instructions A message was left informing the patient/patient liability claims representative they must have a responsible adult [...] Number to call with questions or concerns [phone] Number to call to cancel their procedure [phone] Nancy Fontaine MA documented in this encounterOhio[facility]08-14-2024 Nurse Note* Glenda Humphrey LPN - 06/20/2024 11:02 AM EDT Pt here for injection of Lupron. Given IM in left buttocks. Pt tolerated well. Glneda Humphrey LPN [facility]08-14-2024 Nurse Note* Glenda Humphrey LPN - 06/20/2024 11:02 AM EDT Pt here for injection of Lupron. Given IM in left buttocks. Pt tolerated well. Glenda Humphrey LPN documented in this encounterOhiohealth [facility]field Hospital08-14-2024 History of Present illness Narrative* Glenda Humphrey LPN - 06/20/2024 10:59 AM EDT Pt here for injection of Lupron. Given IM in left buttocks. Pt tolerated well. Glenda Humphrey LPN documented in this encounterOhiohealth [facility]field Hospital08-07-2024 History of Present illness Narrative* Maximo Watkins MD - 06/13/2024 2:56 PM EDT Images from the original note were not included. CONSULT ORTHOPAEDIC: HIP PRIMARY CARE PHYSICIAN: Elisa Narvaez MD REFERRING PROVIDER: No referring provider defined for this encounter. ASSESSMENT & PLAN This is a 74-year-old male who presents with right hip pain. Patient had a femoral neck fracture [id number] and underwent a cementless hemiarthroplasty at that [...] stroke, diabetes. He was previously seen at [facility] by another orthopedic surgeon. He was worked up for infection and his ESR and CRP will normal back in April when they were drawn. But he is continue to have severe pain. He is here with his POA today. Again patient has not walked in 1 and half years has been wheelchair-bound has an appointment to [facility] entire time. CRP on 04/10/2024 was 0.4 [...] 8.1 (03/23/2023). Pt is followed by Olga Cavazos for Type 2 Diabetes - last seen on 04/12/2023. Consult to the [facility]inology [facility] [place] (JOSIE) recommended prior to surgery. 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 Warfarin since. No date: Cardiomyopathy, unspecified (HCC) No date: Chronic combined systolic and diastolic congestive heart failure (HCC) No date: Chronic kidney disease, stage 3b (HCC) No date: Chronic respiratory failure with hypoxia (HCC) No date: Epilepsy, unspecified, not intractable, without status epilepticus ([facility]) No date: Esophageal reflux 12/31/2013: Essential and [...] MRI compatible per Dr. Gonzáles No date: [facility]iary current use of insulin (HCC) No date: [...] which included preparing to see the patient, [id number] patient care, completing clinical documentation, obtaining and/or reviewing separately obtained history, performing a medically appropriate examination, counseling and educating the patient/family/caregiver, ordering medications, tests, or procedures, communicating withother HCPs (not separately reported), independently interpreting results (not separately reported),communicating results to the patient/family/caregiver, and care coordination (not separately reported). SIGNATURE: Maximo Watkins MD PATIENT NAME: Steph Baumann DATE: June 13, 2024 TIME: 2:56 PM documented in this encounterOhiohealth Mansfield Hospital08-02-2024 Nurse Note* Luisa Barajas LPN - [...] immediate adverse reactions noted. Luisa Barajas LPN [facility]08-02-2024 Nurse Note* Luisa Barajas LPN - [...] noted. Luisa Barajas LPN documented in this encounterOhiohealth [facility]field Hospital07-17-2024 Telephone encounter Note * Telephone Encounter - Corrine Bales RN - 05/23/2024 2:45 PM EDT Idalia from call line had this patient on line stating they could not make their 2:40 appt because their transportation cancelled (lives in senior living [place] away). He was wondering if [...] to reschedule so we got patient anappoint 06/13 at 2:20 pm. EDGAR is hoping the transportation company comes thru with the crop picker. [facility]07-17-[facility] Miscellaneous Notes* Telephone Encounter - Corrine Bales RN - 05/23/2024 2:45 PM EDT Idalia from call line had this patient on line stating they could not make their 2:40 appt because their transportation cancelled (lives in senior living 40 min away). He was wondering if [...] to reschedule so we got patient anappoint 06/13 at 2:20 pm. EDGAR is hoping the transportation company comes thru with the crop picker. documented in this encounterOhiohealth [facility]field Hospital07-15-2024 Telephone encounter Note * Telephone Encounter - Luisa Barajas LPN - 05/21/2024 8:33 AM EDT Results sent to pt. Via my chart Luisa Barajas LPN [facility]07-15-2024 Miscellaneous Notes* Telephone Encounter - Luisa Barajas LPN - 05/21/2024 8:33 AM EDT Results sent to pt. Via my chart Luisa Barajas LPN * Telephone Encounter - Luisa Barajas LPN - 05/21/2024 7:24 AM EDT ----- Message from Jonnathan Kothari DO sent at 05/20/2024 1:57 PM EDT ----- PSA remains undetectable. documented in this encounterOhiohealth [facility]field Hospital07-15-2024 Telephone encounter Note * Telephone Encounter - Luisa Barajas LPN - 05/21/2024 7:24 AM EDT ----- Message from Jonnathan Kothari DO sent at 05/20/2024 1:57 PM EDT ----- PSA remains undetectable. [facility] Instructions* Patient Instructions* Kourtney Bhatia MD - 05/01/2024 4:32 PM EDT We shall start prolia as discussed- every 6 months documented in this encounterOhiohealth Mansfield Hospital06-25-2024 History of Present illness Narrative* Kourtney Bhatia MD - 05/01/2024 4:21 PM EDT [facility] [place] Follow up visit Chief Complaint: osteoporosis without [...] GERD, type 2 DM. He lives at [facility]. 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 [facility] current use of insulin (HCC) Metabolic encephalopathy [...] which included preparing to see the patient, [id number]-[id number]-jzhh patient care, completing clinical documentation, obtaining and/or reviewing separately obtained history, performing a medically appropriate examination, counseling and educating the pat ient/family/caregiver, ordering medications, tests, or procedures, and independently interpreting results (not separately reported). Kourtney Bhatia MD Endocrinology Associate Staff [facility] [place] [phone] documented in this encounterOhiohealth Mansfield Hospital05-20-2024 Telephone encounter Note * Telephone Encounter - Glenda Humphrey LPN - 03/26/2024 11:10 AM EDT Bob notified. April 09 apt with ortho in [place] for second opinion. Glenda Humphrey LPN [facility]05-20-2024 Miscellaneous Notes* Telephone Encounter - Glenda Humphrey LPN - 03/26/2024 11:10 AM EDT Bob notified. April 09 apt with ortho in [place] for second opinion. Glenda Humphrey LPN * Telephone Encounter - Jonnathan Kothari DO - 03/25/2024 2:07 PM EDT Can [...] orthopedic opinion but is not scheduled till May. Jonnathan Kothari DO documented in this encounterOhiohealth [facility]field Hospital05-19-2024 Telephone encounter Note * Telephone Encounter - Jonnathan Kothari DO - 03/25/2024 2:07 PM EDT Can [...] is not scheduled till May elsewhere. Jonnathan Kothari DO [facility]05-15-[facility]24 History of Present illness Narrative* Constance Samuels RT(R) - 03/21/2024 12:40 PM EDT Radiology Service [...] PATIENT PRESENTS WITH AN IMPLANTABLE OR ATTACHED COVERSTITCH MACHINE OPERATOR: No RADIOLOGY DEPARTMENT: General X-ray: Exam(s) Completed: Pelvis X-Ray: Pelvis with Hip Right PERIPHERAL IV DATA: Not applicable SIGNED BY: RT Heidi(R) March 21, 2024 1:03 PM documented in this encounterOhiohealth Mansfield Hospital05-15-2024 History of Present illness Narrative* Jonnathan Kothari DO - 03/21/2024 12:07 PM EDT Oncologic [...] biopsy on 11/12/2021. All 4 cores demonstrated [place] grade 7, 2 of the cores were [...] for cirrhosis. Here today with POA from [place] (daughter's friend). Visits him every 2 weeks. Diagnosed with Parkinsons in April. Requires wheelchair. Was independent prior to that. Living [place] [facility] [place]. 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 Jonnathan Kothari DO documented in this encounterOhiohealth [facility]field Hospital05-15-2024 History of Present illness Narrative* Glenda Humphrey LPN - 03/21/2024 11:50 AM EDT Patient here for Lupron injection, given IM in right buttocks. Pt tolerated well. For all other information regarding today, see today's OV note with Dr Kothari. 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 Contacted for: Routine Telephonic Outreach Contact made with patient: Yes Patient identified by name and date of . Discussed care with caregiver Are you experiencing any new or worsening symptoms you need to talk about today? Yes Based on senior principal software engineer, the following disposition is advised: No symptoms or symptoms present, not severe. Routed to: No Action Needed MATT Education Provided this Outreach: No Dinorah Posada RN January 18, 2024 2:48 PM documented in this encounterOhiohealth Mansfield Hospital02-20-2024 Miscellaneous Notes* Telephone Encounter - Netta Espinal RN - 12/27/2023 8:39 AM EST Medications are not ordered or managed by or hepatology. Netta Espinal RN December 27, 2023 8:40 AM * Telephone Encounter - Luz Elena hC - 12/22/2023 3:24 PM EST Faculty called in Xifaxan insurance will not pay, no prior authorization 3000 out of pocket expense Not a skilled in faculty Not a faculty pay can we increase Lactulose 2.Phosphates Pt does not like taking it Not skilled in faculty Will not pay Please call Luisana at [phone] Luz Elena Snell Technical Illustrator ll documented in this encounterOhiohealth Mansfield Hospital02-14-2024 Nurse Note* Glenda Humphrey LPN - 12/21/2023 3:00 PM EST Pt here for injection of Lupron. Given IM in left buttocks. Pt tolerated well. Glenda Humphrey LPN documented in this encounterOhiohealth Mansfield Hospital01-30-2024 History of Present illness Narrative* Dinorah Posada RN - 12/06/2023 1:23 PM EST [facility] [facility] Telephonic Outreach Provider Action/FYI Spk with Bob/ Edgar she states Pt is at [facility], considering AL due to mobility issues. He has a cell, chooses not to use it. Denies concerns or needs. ADL's Falls, Goals updated Contacted for: Routine Telephonic Outreach Contact made with patient: Yes Patient identified by name and date of . Are you experiencing any new or worsening symptoms you need to talk about today? Yes Based on senior principal software engineer, the following disposition is advised: No symptoms or symptoms present, not severe. Routed to: No Action Needed MATT Education Provided this Outreach: No Dinorah Posada RN December 06, 2023 1:27 PM documented in this encounterOhiohealth Mansfield Hospital11-24-2023 Miscellaneous Notes* Telephone Encounter - Thania Santos LPN - 09/30/2023 8:42 AM EST [facility] at [facility] notified and took a verbal order. Thania Santos LPN * Telephone Encounter - Thania Santos LPN - 09/30/2023 8:35 AM EST ----- Message from Jonnathan Kothari DO sent at 09/29/2023 7:33 PM EST ----- Vit D is low. He is under IN care at [facility]. Please give order to start Vit D3 2000 units PO daily if not already on vit D supplement. If he already is then increase to 5000 units daily. Jonnathan Kothari DO documented in this encounterOhiohealth Mansfield Hospital11-17-2023 History of Present illness Narrative* Dinorah [...] 23, 2023 2:38 PM documented in this encounterOhiohealth Mansfield Hospital11-15-2023 History of Present illness Narrative* Lillian John RN - 09/21/2023 1:23 PM EST Steph Baumann was reviewed for potential clinical trial enrollment on [facility] #GU010 by the [facility] on 09/21/23. Per initial review, patient has disease type Prostate and appears to be not eligible based on Treatment . Requesting libertarian notified. Lillian John RN * Lillian John RN - 09/21/2023 1:23 PM EST Steph Baumann was reviewed for potential clinical trial enrollment on [facility] #GU008 by the [facility] on 09/21/23. Per initial review, patient has disease type Prostate and appears to be not eligible based on Treatment . Requesting libertarian notified. Lillian John RN documented in this encounterOhiohealth Mansfield Hospital11-09-2023 Miscellaneous Notes* Telephone Encounter - Hung Jacobs LPN - 09/15/2023 8:42 AM EST Called Bob. Verified name and date of of patient. Informed- verbalizes understanding. States she speaks with patient daily and will let him know. Hung Jacobs LPN * Telephone Encounter - Rustam Masterson PA-C - 09/14/2023 7:46 PM EST PSA is good undetectable, still needs consult for medical oncology for ADT therapy which it look like he has set. KLEVER Zheng, PAIGE, DINESH documented in this encounterOhiohealth Mansfield Hospital11-08-2023 Miscellaneous Notes* Telephone Encounter - Constance Cisneros - 09/14/2023 3:43 PM EST Scheduled with Andra HERNÁNDEZ * Telephone Encounter - Luisa Barajas LPN - 09/14/2023 3:04 PM EST Schedule appt. With Dr. Saniya Barajas LPN * Telephone Encounter - ZaragozaMichelle - 09/14/2023 1:51 PM EST Procedure: CONSULT TO ONCOLOGY Status: Needs Scheduling Requested appt date: Authorizing: Rustam Masterson PA-C in [facility] Referral: [id number] (Authorized) Expires: 09/12/2024 Priority: Routine Diagnosis: Prostate cancer (HCC) [C61] Pt is requesting Dr. Kothari. Please review and advise Michelle documented in this encounterOhiohealth Mansfield Hospital10-30-2023 History of Present illness Narrative* Dinorah [...] 02, 2023 10:26 AM documented in this encounterOhiohealth Mansfield Hospital10-06-2023 Miscellaneous Notes* Telephone Encounter - Netta [...] 10:58 AM EDT called again saying that [facility] did not receive US order, labs. New fax number giving [phone] Will fax over items Lzu Elena Snell Technical Illustrator ll documented in this encounterOhiohealth Mansfield Hospital09-14-2023 History of Present illness Narrative* Dinorah [...] 20, 2023 10:34 AM documented in this encounterOhiohealth Mansfield Hospital08-22-2023 History of Present illness Narrative* Dinorah [...] 27, 2023 12:19 PM documented in this encounterOhiohealth Mansfield Hospital08-19-2023 Progress note Author Norris Orellana [facility] June 25, 2023 1:10pm Note Date/Time June 25, 2023 12 :51pm [facility] Medical Records Department [address] [place] [address] Progress Note - Hospitalist 06/25/23 1248 MR#: [id number] Acct: [id number] Name: STEPH BAUMANN Rep #:[id number] : 1950 73 From: Norris Chávez PCP: Dr. Manuel Beebe MD Status:AD M IN Location: [place] [id number] Reason for Visit Reason for Visit: Diagnoses [...] (Auto) 81.0 H, Lymph % (Auto) 5.7L, Story % (Auto) 7.7, Eos % (Auto) 4.2, [...] 1.1. BUN 22. 06/25: VALENCIA resolved. BUNs/creatinine 17/.. 2. Leukocytosis -Left shift is present -Chest [...] 82.5 H, Lymph % (Auto) 5.5 L, Story % (Auto) 6.3, Eos % (Auto) 4.6, [...] 118 H Charges/Coding Visit Charges Inpatient E&M: 16633 Subs Hosp L2 06/25/23 1310 <Electronically signed by Norris Orellana MD> Cosigner Signature (if applicable): CC: ~ Signed [facility] Work Phone: 1(125) 545-935608-18-2023 Progress note Author Norris Orellana [facility] June 24, 2023 2:26pm Note Date/Time June 24, 2023 2: 26pm [facility] Medical Records Department [address] [place] [address] Progress Note - Hospitalist 06/24/23 1421 MR#: [id number] Acct: [id number] Name: STEPH BAUMANN Rep #:[id number] : 1950 73 From: Norris Chávez PCP: Dr. Manuel Beebe MD Status:AD IN Location: [place] [address] Reason for Visit Reason for Visit: Diagnoses [...] 06/23/23 06/24/23 23:59 23:59 23:59 Intake Total 2039 1080 / 1320 240 / 240 Output [...] 82.5 H, Lymph % (Auto) 5.5 L, Story % (Auto) 6.3, Eos % (Auto) 4.6, [...] 82.5 H, Lymph % (Auto) 5.5 L, Story % (Auto) 6.3, Eos % (Auto) 4.6, [...] 118 H Charges/Coding Visit Charges Inpatient E&M: 72428 Subs Hosp L2 06/24/23 1426 <Electronically signed by Norris Orellana MD> Cosigner Signature (if applicable): CC: ~ Signed [facility] Work Phone: 1(905) 857-759908-18-2023 Progress note Author Chandana Jain [facility] June 24, 2023 9:48am Note Date/Time June 24, 2023 9: 48am [facility] Medical Records Department [address] [place] [address] Progress Note - Orthopedic 06/24/23 0947 MR#: [id number] Acct: [id number] Name: STEPH BAUMANN Rep #:[id number] : 1950 73 From: Chandana Jain MD PCP: Dr. Manuel Beebe MD Status:AD M IN Location: [facility] [id number]- 1 Subjective Subjective FU note after CT right [...] 82.5 H, Lymph % (Auto) 5.5 L, Story % (Auto) 6.3, Eos % (Auto) 4.6, [...] Cosigner Signature (if applicable): CC: ~ Signed [facility] Work Phone: 1(739) 932-196308-17-2023 Progress note Author [facility] Esteban [facility] June 23, 2023 5:32pm Note Date/Time June 23, 2023 7: 56am [facility] Medical Records Department [address] [place] [address] Progress Note - Hospitalist 06/23/23 0752 MR#: [id number] Acct: [id number] Name: STEPH BAUMANN Rep #:[id number] : 1950 73 From: Norris Chávez PCP: Dr. Manuel Beebe MD Status:AD M IN Location: [place] [address]- Reason for Visit Reason for Visit: Diagnoses [...] 84.0 H, Lymph % (Auto) 4.7 L, Story % (Auto) 5.8, Eos % (Auto) 4.5, [...] 16:54 EDT Reading Location ID and State: [facility] / [place] Tel [phone], Service support , Physical Exam Narrative Seen and examined. [...] 84.0 H, Lymph % (Auto) 4.7 L, Story % (Auto) 5.8, Eos % (Auto) 4.5, [...] 164 H Charges/Coding Visit Charges Inpatient E&M: 10456 Subs Hosp L2 06/23/23 1732 <Electronically signed by Norris Orellana MD> Cosigner Signature (if applicable): CC: ~ Signed [facility] Work Phone: 1(231) 632-192308-17-2023 Consult note Author Chandana Jain [facility] June 23, 2023 1:51pm Note Date/Time June 23, 2023 1: 51pm [facility] Medical Records Department [address] [place] [address] Consultation - Orthopedics 06/23/23 1347 MR#: [id number] Acct: [id number] Name: STEPH BAMUANN Rep #:[id number] : 1950 73 From: Chandana Jain MD PCP: Dr. Manuel Beebe MD Status:AD M IN Location: [place] [address] HPI Consult Data Date of Consult: 06/23/23 HPI Narrative HPI Narrative: STEPH BAUMANN, is a 73 M who presents with right hip pain after a ground- level fall. Per the patient they were walking at home tripped and fell is having pain on the lateral side of the hip. Patient states that they had their hip fixed in November of this year at [facility] although there is nonotes to this effect. Unsure who the surgeon was. [facility] Medical History (Updated 06/23/23 @ 13:50 by Chandana Jain MD) Acute and chronic respiratory failure with hypoxia Acute heart failure with reduced ejection fraction and diastolic dysfunction Adult failure to thrive Ambulates with cane Anticoagulant long-term use Anxiety Ascites Asthma Atherosclerosis of coronary artery of iliamna heart without angina pectoris Atrial fibrillation and [...] mL) subcutaneous pen 37 unit subcut QHS [id number]/24/18 [History Last Taken 04/12/23] bicalutamide 50 mg [...] bisacodyl 10 mg rectal suppository 10 mg WV DAILY PRN constipation 06/21/23 [History Last Taken [...] never substance use type: does not use regla/samaritan: None seatbelt use: always Vital Signs Vital [...] 84.0 H, Lymph % (Auto) 4.7 L, Story % (Auto) 5.8, Eos % (Auto) 4.5, [...] Segundo George DO at 16:54 EDT , agree w radiologist, press fit hemiarthroplasty [...] Addison MD; Dr. Chandana Jain MD~ Signed [facility] Work Phone: 1(804) 123-230908-16-2023 Progress note Author Quynh Araya [facility] June 22, 2023 12:49pm Note Date/Time June 22, 2023 8: 14am [facility] Medical Records Department [address] [place] [address] Progress Note - Hospitalist 06/22/23 0754 MR#: [id number] Acct: [id number] Name: STEPH BAUMANN Rep #:[id number] : 1950 73 From: Quynh Araya DO PCP: Dr. Manuel Beebe MD Status:AD M IN Location: [place] [address]- 1 Reason for Visit Reason for Visit: Mental status/nausea/vomiting Subjective Subjective Mr. Baumann is a 73-year-old -[place]ian male who presented to the emergency department at [facility] from the nursing facility with altered mental [...] with this. He is aware heis in [place] and was able to tell me was [...] Clarity Clear, Urine pH 6.0, Ur Specific [place] 1.020, Urine Protein 30 H, Urine Glucose [...] (Auto) 92.0 H, Lymph % (Auto) 2.3L, Story % (Auto) 4.1, Eos % (Auto) 0.6, [...] Negative for oriented x3 Constitutional Narrative: Older, -Panamanian, male, sitting up in bed appears comfortable, nontoxic, oriented to self, was able to say he was in [place] and that was June 2023 butwould not [...] place order Charges/Coding Visit Charges Inpatient E&M: 10155 [facility] Hosp L2 06/22/23 1249 <Electronically signed by Quynh Araya DO> Cosigner Signature (if applicable): CC: ~ Signed [facility] Work Phone: 1(850) 440-843708-15-2023 History and physical note Author Maximo Addison [facility] June 21, 2023 5:38pm Note Date/Time June 21, 2023 5: 24pm [facility] Medical Records Department [address] [place] [address] H&P Exam - Hospitalist 06/21/23 1715 MR#: [id number] Acct: [id number] Name: STEPH BAUMANN Rep #:[id number] : 1950 73 From: Maximo sung MD PCP: Dr. Manuel Beebe MD Status:RE G ER Location: ED HPI - General General Date of Admission: 06/21/23 HPI Narrative STEPH BAUMANN, is a 73 M who presents from the senior living with altered mental status as well as [...] he has been doing well at the senior living but it has transitioned into a long-term [...] the ER were unremarkable as was UA. [facility] Medical History Acute and chronic respiratory failure with hypoxia Acute heart failure with reduced ejection fraction and diastolic dysfunction Adult failure to thrive Ambulates with cane Anticoagulant long-term use Ascites Asthma Atherosclerosis of coronary artery of iliamna heart without angina pectoris Atrial fibrillation and [...] mL) subcutaneous pen 37 unit subcut QHS [id number]/24/18 [History Last Taken 04/12/23] bicalutamide 50 mg [...] bisacodyl 10 mg rectal suppository 10 mg WV DAILY PRN constipation 06/21/23 [History Last Taken [...] never substance use type: does not use regla/samaritan: None seatbelt use: always ROS Review of [...] Clarity Clear, Urine pH 6.0, Ur Specific [place] 1.020, Urine Protein 30 H, Urine Glucose [...] He has completed radiation treatments DVT: Wilmar Martinez had a 20-minute discussion with the POA on advance care planning options including hospice. She reiterated that he would like to be full code. Charges/Coding Visit Charges Inpatient E&M: 97238 Init Hosp L2 Procedures Hospitalists Procedures: 56786 Advncd Care Plan 30 Min 06/21/23 1738 <Electronically signed by Maximo Addison MD> Cosigner Signature (if applicable): CC: Dr. Manuel Beebe MD; Dr. Maximo Addison MD~ Signed [facility] Work Phone: 1(312) 254-771808-15-2023 Discharge summary Author Juan Conte [facility] June 21, 2023 4:29pm Note Date/Time June 21, 2023 12 :54pm [facility] Medical Records Department [address] [place] [address] Emergency Department Summary 06/21/23 MR#: [id number] Acct: [id number] Name: STEPH BAUMANN Rep #:[id number] : 1950 73 From: Juan Huang PCP: Dr. Manuel Beebe MD Status:RE G ER Location: ED HPI History of Present Illness Chief Complaint: [facility] Medical History Acute and chronic respiratory failure with hypoxia Acute heart failure with reduced ejection fraction and diastolic dysfunction Adult failure to thrive Ambulates with cane Anticoagulant long-term use Ascites Asthma Atherosclerosis of coronary artery of iliamna heart without angina pectoris Atrial fibrillation and [...] never substance use type: does not use regla/samaritan: None seatbelt use: always EXAM Physical Exam [...] 98 96 Oxygen Delivery Method Room Air [facility] Narrative Medical decision making narrative: HISTORY OF PRESENT ILLNESS: 73-year-old male here with concern for altered mental status. The patient does not provide reliable history. Per senior living report patient has been last Pernursing report [...] health: Elderly History obtained from others: n senior living Consults: Internal medicine ALL IMAGES (IF OBTAINED) HAVE BEEN PERSONALLY REVIEWED AND INTERPRETED BY MYSELF. MDM Narrative: Patient was hemodynamically stable, afebrile, nontoxic-appearing. [...] Clarity Clear Urine pH 6.0 Ur Specific Vancouver 1.020 Urine Protein 30 H Urine Glucose [...] mental status Disposition Disposition: Acute Care Hospital [facility] What to do if you have Problems For any increased pain, shortness of breath, bleeding, nausea or vomiting, chestpain, or any unexpected problems, contact your Primary Care Provider. Call [facility] ([phone]) or report to the closest Emergency Room. Call 911 if necessary. 06/21/23 0319 <Electronically signed by Juan Conte DO> Cosigner Signature (if applicable): CC: Dr. Manuel Beebe MD ~ Signed [facility] Work Phone: 1(527) 235-645008-15-2023 Discharge [facility] June 21, 2023 4:29pm Note Date/Time June 21, 2023 12 :54pm [facility] Medical Records Department [address] [place] [address] Emergency Department Summary 06/21/23 MR#: [id number] Acct: [id number] Name: STEPH BAUMANN Rep #:[id number] : 1950 73 From: Juan Huang PCP: Dr. Manuel Beebe MD Status:RE G ER Location: ED HPI History of Present Illness Chief Complaint: [facility] Medical History Acute and chronic respiratory failure with hypoxia Acute heart failure with reduced ejection fraction and diastolic dysfunction Adult failure to thrive Ambulates with cane Anticoagulant long-term use Ascites Asthma Atherosclerosis of coronary artery of iliamna heart without angina pectoris Atrial fibrillation and [...] never substance use type: does not use regla/samaritan: None seatbelt use: always EXAM Physical Exam [...] 98 96 Oxygen Delivery Method Room Air [facility] Narrative Medical decision making narrative: HISTORY OF PRESENT ILLNESS: 73-year-old male here with concern for altered mental status. The patient does not provide reliable history. Per senior living report patient has been last Pernursing report [...] health: Elderly History obtained from others: n senior living Consults: Internal medicine ALL IMAGES (IF OBTAINED) HAVE BEEN PERSONALLY REVIEWED AND INTERPRETED BY MYSELF. MDM Narrative: Patient was hemodynamically stable, afebrile, nontoxic-appearing. [...] Clarity Clear Urine pH 6.0 Ur Specific [place] 1.020 Urine Protein 30 H Urine Glucose [...] in mental status Disposition Disposition: Acute Care [facility] What to do if you have Problems For any increased pain, shortness of breath, bleeding, nausea or vomiting, chestpain, or any unexpected problems, contact your Primary Care Provider. Call [facility] ([phone]) or report to the closest Emergency Room. Call 911 if necessary. 06/21/23 1629 <Electronically signed by Juan Conte DO> Cosigner Signature (if applicable): CC: Dr. Manuel Beebe MD ~ Signed [facility] Work Phone: 1(348) 149-410506-19-[address] Addison [facility] April 25, 2023 12:21pm Note Date/Time April 25, 2023 12:0 9pm [facility] Medical Records Department [address] [place] [address] Transfer to [facility] MR#: [id number] Acct: [id number] Name: STEPH BAUMANN Rep #:[id number] : 1950 72 From: Maximo sung MD PCP: Dr. Manuel Beebe MD Status:AD M IN Certification of patient admission REQUIRED AT TIME OF ADMISSION. I CERTIFY THAT POST-HOSPITAL ECF SERVICES ARE REQUIRED TO BE GIVEN ON AN IN-PATIENT BASIS BECAUSE OF THE ABOVE NAMED PATIENT'S NEED FOR SKILLED NURSING CARE ON A CONTINUING BASIS FOR THE [...] 04/23/23 10:15) Other oxycodone Adverse Reaction (Verified 06/17/23 10:15) hallucinations Procedures: 2-D Echocardiogram Type of [...] in before D/C Order can be placed): Longterm Facility 04/25/23 1221 <Electronically signed by Maximo Addison MD> Cosigner Signature (if applicable): CC: Dr. Manuel Beebe MD; Dr. Fior Turner MD ~ [facility] Work Phone: 1(439) 922-705406-18-[address] Turner [facility] April 24, 2023 2:03pm Note Date/Time April 24, 2023 10:2 8am [facility] Medical Records Department [address] [place] [address] Progress Note 04/24/23 1025 MR#: [id number] Acct: [id number] Name: STEPH BAUMANN Rep #:[id number] : 1950 72 From: Fior Turner MD PCP: Dr. Manuel Beebe MD Status:AD M IN Location: [place] [address] Subjective Subjective Patient seen and examined. He [...] 23:59 23:59 Intake Total 1000 / 1000 2030. / 2030.25 Output Total 450 / 450 200 / 200 Balance 550 / 550 183. / 183. Lab / Micro Data Result Diagrams: 04/24/23 [...] 84.7 H, Lymph % (Auto) 7.2 L, Story % (Auto) 6.6, Eos % (Auto) 0.7, [...] Clarity Clear, Urine pH 5.0, Ur Specific [place] 1.020, Urine Protein 15 H, Urine Glucose [...] 82.0 H, Lymph % (Auto) 6.5 L, Story % (Auto) 7.5, Eos % (Auto) 2.8, [...] code * Charges/Coding Visit Charges Inpatient E&M: 35989 Subs Hosp L2 04/24/23 1314 <Electronically signed [...] as per discussion with Dr. Durham the family services coordinator on-call. 04/24/23 1403 <Electronically signed by Fior fuentes MD> Date _ Fior Turner MD Cosigner Signature (if applicable): Date cc: ~* Signed [facility] Work Phone: 1(606) 961-861106-18-2023 History and physical note Author Dr. Turner [facility] April 24, 2023 1:14pm Note Date/Time April 23, 2023 1:36 pm [facility] Medical Records Department [address] [place] [address] H&P Exam - Hospitalist 04/23/23 1334 MR#: [id number] Acct: [id number] Name: STEPH BAUMANN Rep #:[id number] : 1950 72 From: Fior Turner MD PCP: Dr. Manuel Beebe MD Status:AD M IN Location: [facility] YEK466- 1 HPI - General General Date of Admission: 04/23/23 Date of Service: 04/23/23 HPI Narrative STEPH BAUMANN, is a 72 M with a PMH as outlined who presents via the ED on 04/23/2023 with a complaint of generalised weakness from his SNF. This is his third admission over the last few weeks for generalised weakness. He was recently discharged to the senior living facility on 04/16/2023 from where he presents today on account of weakness. Staff and senior living also noted that he was hypoxic by [...] managed for VALENCIA and debility and deconditioning. [facility] Medical History Acute and chronic respiratory failure with hypoxia Acute heart failure with reduced ejection fraction and diastolic dysfunction Adult failure to thrive Ambulates with cane Anticoagulant long-term use Ascites Asthma Atherosclerosis of coronary artery of iliamna heart without angina pectoris Atrial fibrillation and [...] never substance use type: does not use regla/samaritan: None seatbelt use: always ROS Constitutional Constitutional: [...] 84.7 H, Lymph % (Auto) 7.2 L, Story % (Auto) 6.6, Eos % (Auto) 0.7, [...] Clarity Clear, Urine pH 5.0, Ur Specific [place] 1.020, Urine Protein 15 H, Urine Glucose [...] Signed: Kenny Culp MD at 11:10 EDT Reading Location ID and State: [facility] / [place] Tel , Service support , Assessment & Plan Assessment/Plan (1) Generalized [...] Patient elects to be full code. Total [id number] time 16 minutes. Charges/Coding Visit Charges Inpatient E&M: 73707 Init Hosp L2 Procedures Hospitalists Procedures: 29955 Advncd Care Plan 30 Min 04/24/23 1314 <Electronically signed by Fior Turner MD> Cosigner Signature (if applicable): CC: Dr. Manuel Beebe MD; Dr. Fior Turner MD~ Signed [facility] Work Phone: 1(701) 923-835606-18-[address] Olivia [facility] April 23, 2023 11:19pm Note Date/Time April 23, 2023 10:3 6am [facility] Medical Records Department [address] [place] [address] Emergency Department Summary 04/23/23 MR#: [id number] Acct: [id number] Name: STEPH BAUMANN Rep #:[id number] : 1950 72 From: Goldy Huang PCP: Dr. Manuel Beebe MD Status:AD M IN Location: [address] History of Present Illness Chief Complaint: Alt [...] a headache. Patient denies any focal weakness. [facility] Medical History Acute and chronic respiratory failure with hypoxia Acute heart failure with reduced ejection fraction and diastolic dysfunction Adult failure to thrive Ambulates with cane Anticoagulant long-term use Ascites Asthma Atherosclerosis of coronary artery of iliamna heart without angina pectoris Atrial fibrillation and [...] never substance use type: does not use regla/samaritan: None seatbelt use: always ROS ROS ED [...] 84.7 H Lymph % (Auto) 7.2 L Story % (Auto) 6.6 Eos % (Auto) 0.7 [...] Color Urine Clarity Urine pH Ur Specific [place] Urine Protein Urine Glucose (UA) Urine Ketones [...] (Auto) Neut % (Auto) Lymph % (Auto) Story % (Auto) Eos % (Auto) Baso % [...] Clarity Clear Urine pH 5.0 Ur Specific [place] 1.020 Urine Protein 15 H Urine Glucose [...] Elevated troponin Disposition Disposition: Acute Care Hospital [facility] Discharge Date/Time: 04/23/23 14:29 What to do if you have Problems For any increased pain, shortness of breath, bleeding, nausea or vomiting, chestpain, or any unexpected problems, contact your Primary Care Provider. Call [facility] ([phone]) or report to the closest Emergency Room. Call 911 if necessary. 04/23/23 7849 <Electronically signed by Goldy Olivia DO> Cosigner Signature (if applicable): CC: Dr. Manuel Beebe MD ~ Signed [facility] Work Phone: 1(853) 453-378106-16-2023 Miscellaneous Notes* Telephone Encounter - [place] - 04/22/2023 9:08 AM EDT 04-22....Patient is currently in rehab,Cancelled his appointment on 05-03, will call to r/s later any questions call Bob Ferraro [phone] [place] documented in this encounterOhiohealth Mansfield Hospital06-15-2023 History of Present illness Narrative* Dinorah [...] 20, 2023 2:37 PM documented in this encounterOhiohealth Mansfield Hospital06-07-[address] Hope [facility] April 13, 2023 5:31pm Note Date/Time April 13, 2023 2:50p alfredo [facility] Medical Records Department [address] [place] [address] Emergency Department Summary 04/13/23 MR#: [id number] Acct: [id number] Name: STEPH BAUMANN Rep #:[id number] : 1950 72 From: Jo-Ann Bliss DO PCP: Dr. Manuel Beebe MD Status:RE G ER Location: ED ADDENDUM by Dr. Harpreet Hope MD on 04/13/23 at 1731 UA is unremarkable. Case management has been involved with patient. He will need to be observed overnight for placement to senior living. 04/13/23 173<Electronically signed by Harpreet Hope MD> Cosigner Signature [...] not admitted. They were being seen by health social work professor and trying to arrange physical therapy at [...] He denies abdominal pain or chest pain. [facility] Medical History Acute and chronic respiratory failure with hypoxia Acute heart failure with reduced ejection fraction and diastolic dysfunction Ambulates with cane Anticoagulant long-term use Ascites Asthma Atherosclerosis of coronary artery of iliamna heart without angina pectoris Atrial fibrillation and [...] never substance use type: does not use regla/samaritan: None seatbelt use: always ROS ROS ED [...] 80.2 H Lymph % (Auto) 7.0 L Story % (Auto) 8.1 Eos % (Auto) 3.3 [...] Signed: Erik Sandoval MD at 15:36 EDT , 1 view chest x-ray obtained interpreted [...] your Primary Care Provider. Call [facility] ([phone]) or report to the closest Emergency Room. Call 911 if necessary. 04/13/23 5523 <Electronically signed by Jo-Ann Bliss DO> Cosigner Signature (if applicable): CC: Dr. Manuel Beebe MD ~ Signed [facility] Work Phone: [phone]) 432-616306-07-2023 Miscellaneous Notes* Telephone Encounter - Satish Abarca LPN - 04/13/2023 9:55 AM EDT [...] help care for him. Pt has [facility] PT and OT ordered but [...] office for review. Please call Bob at [phone]. documented in this encounterOhiohealth Mansfield Hospital06-06-2023 Miscellaneous Notes* Telephone Encounter - Lashonda [...] next week. * Telephone Encounter - Olga Cavazos APRN.CNS - 04/12/2023 8:36 AM EDT OK for [facility]. Schedule hospital follow up appointment. * Telephone Encounter - Reina Mcgee LPN - 04/11/2023 2:20 PM EDT Jasmyne, an nurse with [employer] , calls for VO for OT and PT. Pt is supposed to be dc'd from [facility] on 04/12. Call Jasmyne with dr's VO. Reina Mcgee LPN documented in this encounterOhiohealth Mansfield Hospital06-06-2023 Instructions* Patient Instructions* Olga Cavazos APRN.REHAN - 04/12/2023 2:45 PM EDT Drink [...] severe or concerning symptoms documented in this encounterOhiohealth Mansfield Hospital06-06-2023 History of Present illness Narrative* Olga Cavazos APRN.LIFE ENRICHMENT DIRECTOR - 04/12/2023 2:20 PM EDT SUBJECTIVE: DILATED [...] he is feeling well overall. Following with [facility] re: CAD s/p STEMI, diastolic [...] Noted he was unable to travel to [place] or [place] so he was instead seen at [facility] by Dr. Abreu. Diagnosed with prostate cancer, treatment with radiation planned; has begun the process for this; procedure earlier today at [facility]. Notes he had procedure yesterday at [facility] cancer Center [facility] for prostate cancer. Without report of headache, [...] dose of insulin. He was admitted to [facility] on April 10, 2023 through April 12, [...] [address] Horton neurologist [facility]. He has a neurology appointment tomorrow, states [...] Metformin Diarrhea Even low dose caused diarrhea [place] [Hydrocodone-* Intolerance Hallucination Medications traMADol (ULTRAM) 50 [...] in situ 10/[address] Nivia ALBINO (obstructive sleep apnea) BiPAP, [facility] 07/09/2014. [...] - 4.00 k/uL 0.60 (L) 0.79 (L) Story% % 12.7 6.7 Abs Story <0.87 k/uL 0.72 0.60 Eosin% % 4.1 [...] R62.7 He was seen in observation at [facility]. Advised senior living facility at discharge however declined and discharged to home with home health care. Presents in clinic unable to stand without assistance and difficulty staying awake. He is hypotensive. 4. Type 2 diabetes mellitus with other specified complication, with long-term current use of insulin ([facility]) - ICD9: 250.80, V58.67, ICD10: E11.69, Z79.4 Has had improved control of late. 5. Paroxysmal atrial fibrillation ([facility]) - ICD9: 427.31, ICD10: I48.[address] [facility]. On oral anticoagulation. 6. Chronic diastolic CHF (congestive heart failure) ([facility]) - ICD9: 428.32, 428.0, ICD10: I50.32 Followed by [facility], recent up titration of carvedilol from 3.125 twice daily to 6.25 twice daily. Appears he is intolerant of this, will reduce dose back down to 3.125 twice daily 7. Parkinson's disease ([facility]) - ICD9: 332.0, ICD10: G20 Being followed [...] symptoms 1 -2 week follow up Olga Cavazos APRN.LIFE ENRICHMENT DIRECTOR Endorse SO not leave unattended until feeling improved. Olga Cavazos APRN.LIFE ENRICHMENT DIRECTOR Medical Decision Making: Problems: Moderate: New problem with uncertain prognosis and Acute illness with systemic symptoms Risk: Moderate: Drug management Medical Decision Making Level: 4 - Moderate documented in this encounterOhiohealth Mansfield Hospital06-06-[address] Turner [facility] April 12, 2023 10:08am Note Date/Time April 12, 2023 10:05 am [facility] Medical Records Department [address] [place] [address] Discharge Summary 04/12/23 0959 MR#: [id number] Acct: [id number] Name: STEPH BAUMANN Rep #:[id number] : 1950 72 From: Fior Turner MD PCP: Dr. Manuel Beebe MD Status:AD [facility] Location: [facility] [id number] Providers Date of Admission: 04/10/23 Date of [...] 78.1 H, Lymph % (Auto) 8.4 L, Story % (Auto) 7.1, Eos % (Auto) 5.1 [...] (MDRD) Non-Af 61, BUN/Creatinine Ratio 20.8 H, Rjrrfhg220 H, Calcium 9.1 D/C Instructions Discharge Diet: [...] Primary Care Provider: Manuel Beebe Consulting Providers: Leonie Jacobs Discharge Orders/Prescriptions Prescriptions: Continued bicalutamide [Casodex] [...] Health Service Charges/Coding Visit Charges Inpatient E&M: 21613 Disch Hosp >30min 04/12/23 1008 <Electronically signed by Fior Turner MD> Cosigner Signature (if applicable): CC: Dr. Manuel Beebe MD; Dr. Fior Turner MD~ Signed [facility] Work Phone: 1(202) 712-169406-06-[address] Turner [facility] April 12, 2023 7:58am Note Date/Time April 11, 2023 12:53 pm [facility] Medical Records Department [facility] [place] [address] Progress Note 04/11/23 1247 MR#: [id number] Acct: [id number] Name: STEPH BAUMANN Rep #:[id number] : 1950 72 From: Fior Turner MD PCP: Dr. Manuel Beebe MD Status:MARY HERNANDEZ Location: [place] [address] Subjective Subjective Patient seen and examined. He [...] 85.5 H, Lymph % (Auto) 5.4 L, Story % (Auto) 6.7, Eos % (Auto) 1.4, [...] Clarity Clear, Urine pH 6.0, Ur Specific [place] 1.015, Urine Protein Negative, Urine Glucose (UA) [...] 82.2 H, Lymph % (Auto) 6.6 L, Story % (Auto) 6.3, Eos % (Auto) 3.6, [...] on Eliquis Charges/Coding Visit Charges Inpatient E&M: 60676 Subs Hosp L2 04/12/23 0759 <Electronically signed by Fior Turner MD> Fior Turner MD Cosigner Signature (if applicable): CC: ~ Signed [facility] Work Phone: 1(266) 397-644606-05-2023 Miscellaneous Notes* Telephone Encounter - Maribell Salinas LPN - 04/11/2023 5:50 PM EDT Message left for Bob Ferraro () to call to update concerning the letter being in Medical records to be picked up. 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 )please advise [phone]. Patient has been identified by name and birthdate. Duration of symptoms: N/A Person calling: caregiver: bob ferraro Call patient at: on cell [phone] (home) [phone] (cell) Was an appointment scheduled: No Closing statement: Results or non-symptom based questions: Thank you for calling [facility], your call will be returned within the next business day. Mckenna Deluna Pss documented in this encounterOhiohealth Mansfield Hospital06-05-2023 Miscellaneous Notes* Telephone Encounter - Alfredo Gupta RN - 04/11/2023 8:32 AM EDT Faxed current med list to [facility] med/surg per request. Fax # [phone]. Confirmation received. documented in this encounterOhiohealth Mansfield Hospital06-04-2023 History and physical note Author Dr. Jacobs [facility] April 10, 2023 5:01pm Note Date/Time April 10, 2023 4:24p [facility] Medical Records Department [address] [place] [address] H&P Exam - Hospitalist 04/10/23 1622 MR#: [id number] Acct: [id number] Name: STEPH BAUMANN Rep #:[id number] : 1950 72 From: Leonie Jacobs MD PCP: Dr. Manuel Beebe MD Status:MARY Fuentes [facility] Location: [facility] [id number] HPI - General General Date of Admission: [...] sepsis caretakers were apparently out of town. [facility] Medical History Acute and chronic respiratory failure with hypoxia Acute heart failure with reduced ejection fraction and diastolic dysfunction Ambulates with cane Anticoagulant long-term use Ascites Asthma Atherosclerosis of coronary artery of iliamna heart without angina pectoris Atrial fibrillation and [...] never substance use type: does not use regla/samaritan: None seatbelt use: always ROS ROS Narrative [...] 85.5 H, Lymph % (Auto) 5.4 L, Story % (Auto) 6.7, Eos % (Auto) 1.4, [...] Clarity Clear, Urine pH 6.0, Ur Specific [place] 1.015, Urine Protein Negative, Urine Glucose (UA) [...] 13:54 EDT Reading Location ID and State: [facility] / [place] , Service support , Chest X-Ray 04/10/23 [...] ? Requested for PT OT eval and health social work professor to assist with discharge planning 2. Nonischemic [...] 18 minutes. Charges/Coding Visit Charges Inpatient E&M: 62839 Init Hosp L3 Procedures Hospitalists Procedures: 72203 Advncd Care Plan 30 Min 04/10/23 1701 <Electronically signed by Leonie Jacobs MD> Cosigner Signature (if applicable): CC: Dr. Leonie Jacobs MD; Dr. Manuel Beebe MD~ Signed [facility] Work Phone: 1(988) 356-158706-04-[address] Badillo [facility] April 10, 2023 4:17pm Note Date/Time April 10, 2023 1:23p [facility] Medical Records Department [address] [place] [address] Emergency Department Summary 04/10/23 MR#: [id number] Acct: [id number] Name: STEPH BAUMANN Rep #:[id number] : 1950 72 From: Victorino Badillo MD PCP: Dr. Manuel Beebe MD Status:RE G ER Location: ED ADDENDUM by Dr. Victorino Badillo MD on 04/10/23 at 1617 Initially, the plan was to discharge the patient home. However, RN stated that patient appeared more confused to him. Earlier, patient stated that he lives alone, and only gets help once a week. Power of state attorney had been called by RN who [...] to thrive. Patient is in stable condition. 04/10/23 1617<Electronically signed by Victorino Badillo MD> Cosigner Signature [...] have history of a pacemaker as well. [facility] Medical History Acute and chronic respiratory failure with hypoxia Acute heart failure with reduced ejection fraction and diastolic dysfunction Ambulates with cane Anticoagulant long-term use Ascites Asthma Atherosclerosis of coronary artery of iliamna heart without angina pectoris Atrial fibrillation and [...] never substance use type: does not use regla/samaritan: None seatbelt use: always ROS ROS ED [...] 85.5 H Lymph % (Auto) 5.4 L Story % (Auto) 6.7 Eos % (Auto) 1.4 [...] Clarity Clear Urine pH 6.0 Ur Specific [place] 1.015 Urine Protein Negative Urine Glucose (UA) [...] your Primary Care Provider. Call [facility] ([phone]) or report to the closest Emergency Room. Call 911 if necessary. 04/10/23 1473 <Electronically signed by Victorino Badillo MD> Cosigner Signature (if applicable): CC: Dr. Manuel Beebe MD ~ Signed [facility] Work Phone: 1(754) 698-595206-04-[address] Badillo [facility] April 10, 2023 4:17pm Note Date/Time April 10, 2023 1:23p m [facility] Medical Records Department [address] [place] [address] Emergency Department Summary 04/10/23 MR#: [id number] Acct: [id number] Name: STEPH BAUMANN Rep #:[id number] : 1950 72 From: Victorino Badillo MD PCP: Dr. Manuel Beebe MD Status:RE G ER Location: ED ADDENDUM by Dr. Victorino Badillo MD on 04/10/23 at 1617 Initially, the plan was to discharge the patient home. However, RN stated that patient appeared more confused to him. Earlier, patient stated that he lives alone, and only gets help once a week. Power of state attorney had been called by RN who [...] to thrive. Patient is in stable condition. 04/10/23 1617<Electronically signed by Victorino Badillo MD> Cosigner Signature [...] have history of a pacemaker as well. [facility] Medical History Acute and chronic respiratory failure with hypoxia Acute heart failure with reduced ejection fraction and diastolic dysfunction Ambulates with cane Anticoagulant long-term use Ascites Asthma Atherosclerosis of coronary artery of iliamna heart without angina pectoris Atrial fibrillation and [...] never substance use type: does not use regla/samaritan: None seatbelt use: always ROS ROS ED [...] 85.5 H Lymph % (Auto) 5.4 L Story % (Auto) 6.7 Eos % (Auto) 1.4 [...] Clarity Clear Urine pH 6.0 Ur Specific [place] 1.015 Urine Protein Negative Urine Glucose (UA) [...] your Primary Care Provider. Call [facility] ([phone]) or report to the closest Emergency Room. Call 911 if necessary. 04/10/23 1553 <Electronically signed by Victorino Badillo MD> Cosigner Signature (if applicable): CC: Dr. Manuel Beebe MD ~ Signed [facility] Work Phone: 1(880) 278-809505-17-2023 History of Present illness Narrative* Manuel Beebe MD - 03/23/2023 8:18 AM EDT This note was created using salgomedriter. Subjective Steph Baumann is a 72 year [...] and LW--will drop off copy again. Bob Ferraro is HCDPOA (contact info on chart). [...] In addition to 3.125mg in packets from [facility] baclofen (LIORESAL) 20 mg tablet Take [...] sleep. Manuel Beebe MD documented in this encounterOhiohealth Mansfield Hospital05-09-2023 Miscellaneous Notes* Telephone Encounter - Netta [...] calling for results. Agata documented in this encounterOhiohealth Mansfield Hospital05-09-2023 Miscellaneous Notes* Telephone Encounter - Netta Espinal RN - 03/15/2023 11:08 AM EDT Results reviewed. See phone encounter dated 03/09/23. Netta Espinal RN March 15, 2023 11:08 AM * Telephone Encounter - Agata Pinto - 03/11/2023 10:30 AM EDT 03/11/23 Patient calling for lab results, If you can call his caregiver, Bob [phone] Agata documented in this encounterOhiohealth Mansfield Hospital05-03-2023 History of Present illness Narrative* Merlin [...] - Patient to discuss starting carvedilol with family services coordinator (ideally 6.25mg PO BID). Patient will also [...] this year (will get with PCP after Thanks) - PNA Vaccine: Up to date. - [...] available Merlin Loredo MD documented in this encounterOhiohealth Mansfield Hospital04-21-2023 History of Present illness Narrative* Dinorah Posada RN - 02/25/2023 1:36 PM EDT CDM Telephonic Outreach Provider Action/FYI CDM: CHF, Asthma Called Pt, unable to leave a message to verify symptom status and needs. Contacted for: Routine Telephonic Outreach Contact made with patient: No, unable to leave message. Will reattempt call Dinorah Posada RN February 25, 2023 1:37 PM documented in this encounterOhiohealth Mansfield Hospital04-05-2023 History of Present illness Narrative* Dinorah Posada RN - 02/09/2023 5:30 PM EDT INSIGHT FILEMON TELEPHONIC OUTREACH Provider Action/FYI: CDM: CHF, Asthma [...] 09, 2023 5:30 PM documented in this encounterOhiohealth Mansfield Hospital03-29-2023 History of Present illness Narrative* Dinorah Posada RN - 02/02/2023 5:19 PM EDT INSIGHT CASIMIRO TELEPHONIC OUTREACH Provider Action/FYI: CDM: [...] 02, 2023 5:19 PM documented in this encounterOhiohealth Mansfield Hospital02-28-2023 History of Present illness Narrative* Dinorah Posada RN - 01/04/2023 5:08 PM EST CECILIO KIRKPATRICK TELEPHONIC OUTREACH Provider [...] 04, 2023 5:08 PM documented in this encounterOhiohealth Mansfield Hospital02-27-2023 History of Present illness Narrative* Dinorah [...] RN - 12/30/2022 12:26 PM EST CECILIO KIRKPATRICK TELEPHONIC OUTREACH Provider [...] 30, 2022 12:26 PM documented in this encounterOhiohealth Mansfield Hospital02-15-2023 Miscellaneous Notes* Telephone Encounter - Manuel Beebe MD - 12/22/2022 4:53 PM EST Okayed * Telephone Encounter - Mckenna Deluna Pss - 12/22/2022 2:27 PM EST Patient has [...] patient. Mckenna Deluna Pss documented in this encounterOhiohealth Mansfield Hospital01-18-2023 History of Present illness Narrative* Dinorah Posada RN - 11/24/2022 9:25 AM EST INSIGHT FILEMON TELEPHONIC OUTREACH Provider Action/FYI: CDM: CHF 2nd [...] Posada RN - 11/22/2022 10:20 AM EST INSIGHT CASIMIRO TELEPHONIC OUTREACH Provider Action/FYI: CDM: [...] 22, 2022 10:20 AM documented in this encounterOhiohealth Mansfield Hospital12-13-2022 History of Present illness Narrative* Dinorah Posada RN - 10/19/2022 5:51 PM EST INSIGHT [facility] TELEPHONIC OUTREACH Provider Action/FYI: CDM: CHF / [...] RN - 10/18/2022 9:58 AM EST IINSIGHT [facility] TELEPHONIC OUTREACH Provider Action/FYI: CDM: CHF / Asthma 10/18/22 Left a message to verify symptom status and needs Contact made with patient: No - Left message Hello my name is Dinorah Posada RN your Self Propelled Dredge Operator [facility] the [facility] I am callingtoday for your bi-weekly [...] 18, 2022 9:58 AM documented in this encounterOhiohealth Mansfield Hospital11-28-2022 Miscellaneous Notes* Telephone Encounter - Pam Simpson Ma - 10/04/2022 8:25 AM EST Received diabetic supply orders from "[facility] medical supply". Confirmed with patient, he does not not use this company and buys supplies out of pocket. Disregard future requests. documented in this encounterOhiohealth Mansfield Hospital11-09-2022 History of Present illness Narrative* Dinorah Posada RN - 09/15/2022 12:14 PM EST INSIGHT CDM TELEPHONIC OUTREACH Provider Action/FYI: Called Pt left a message to verify CHF/ Asthma or other symptoms and needs. Contact made with patient: No - Left message Hello my name is Dinorah Posada RN your Self Propelled Dredge Operator from the [facility] I am callingtoday for your bi-weekly [...] 15, 2022 1:24 PM documented in this encounterOhiohealth Mansfield Hospital10-27-2022 Instructions* Patient Instructions* Margareth Rivas MD - 09/02/2022 12:11 PM EDT Thank you for coming to your visit with Dr. Loredo. Below are some of the things we discussed: Please discuss with your family services coordinator the followin) Starting carvedilol 2 times per [...] Loredo in 6 months. documented in this encounterOhiohealth Mansfield Hospital10-27-2022 History of Present illness Narrative* Merlin [...] - Patient to discuss starting carvedilol with family services coordinator (ideally 6.25mg PO BID). Patient will also [...] months Merlin Loredo MD documented in this encounterOhiohealth Mansfield Hospital10-07-2022 History of Present illness Narrative* Albino Copeland RN - 08/13/2022 3:13 PM EDT INSIGHT CDM TELEPHONIC OUTREACH Provider Action/FYI: Call to Pt, left a message to verify CHF/ Asthma and other symptom status and needs. Contact made with patient: No - Left message Hello my name is Dinorah Posada RN your Self Propelled Dredge Operator [facility] the [facility] I am callingtoday for your bi-weekly [...] 13, 2022 3:13 PM documented in this encounterOhiohealth Mansfield Hospital09-22-2022 Miscellaneous Notes* Telephone Encounter - Lashonda Moore LPN - 07/29/2022 4:15 PM EDT Note and letter faxed to [facility] and patient notified. However patient states that [...] needs an appointment. * Telephone Encounter - Jessica Xiong [facility] - 07/20/2022 10:55 AM EDT Bob calling back about this RX being sent with office notes attached that notes patient needs themobility power operated chair. Please send this to [facility] at fax # [phone] and office number is [phone] Electronically signed by Jessica Xiong [facility] at 07/20/2022 10:59 AM EDT * Telephone Encounter - Sania Eagle LPN - 07/15/2022 2:10 PM EDT Called [facility] this is correct. They just need a prescription for this and then taxes will be voided. Do not know how to enter this to come up this way. * Telephone Encounter - Becky Hernandez - 07/15/2022 1:59 PM EDT Bob Ferraro called back with the phone and fax for [facility]: Bob can be reached at [phone]. * Telephone Encounter - Kendra Bennett RN - 07/15/2022 12:53 PM EDT Bob Ferraro called in and was reporting that Pt is still having mobility issues from when he fractured his hip in February. She was looking at the [employer] Mobility Scooter at [facility]. She reports if a provider writes a letter for the Pt then they can get the tax paid for. She states the scooter is $2300, but the Pt is scared of falling and with this one he would be able to use itin his apartment. Please call her back and advise. documented in this encounterOhiohealth Mansfield Hospital09-13-2022 Miscellaneous Notes* [facility] - [facility] 11:11 AM EDT Patient unable [...] pm Please call Bob, his caregiver at [phone] Electronically signed by Jessica Xiong [facility] [place] 07/20/2022 11:17 AM EDT documented in this encounterOhiohealth Mansfield Hospital08-18-2022 History of Present illness Narrative* Albino Copeland RN - 06/24/2022 11:38 AM EDT CECILIO COLBERT TELEPHONIC OUTREACH Provider Action/FYI: Call to Pt, left a message to verify CHF/ Asthma symptoms, and post Rehab status. Contact made with patient: No - Left message Hello my name is Dinorah Posada RN your Self Propelled Dredge Operator from the [facility] I am callingtoday for your bi-weekly [...] Copeland RN - 06/23/2022 1:29 PM EDT CECILIO KIRKPATRICK TELEPHONIC OUTREACH Provider Action/FYI: Call to Pt, [...] 23, 2022 1:29 PM documented in this encounterOhiohealth Mansfield Hospital08-09-2022 History of Present illness Narrative* Munira Dickerson MD - 06/15/2022 4:20 PM EDT [facility] [address]) [facility] [address] [facility] [address] Steph Baumann is a 72 y.o. male [...] improve. Munira Dickerson MD documented in this [id number] Miscellaneous Notes* Telephone Encounter - Pam Simpson Ma - 06/15/2022 1:30 PM EDT BRENNEN Hallman * Telephone Encounter - Manuel Beebe MD - 06/14/2022 12:09 PM EDT Okay recert * Telephone Encounter - Deedee Florian LPN - 06/14/2022 9:50 AM EDT [facility] calling recert for PT, plan of care 2 visits weekly for 3 weeks working on fall prevention. Patient was recently in [facility] ER for high blood sugars. documented in this encounterOhiohealth Mansfield Hospital08-02-2022 History of Present illness Narrative* Albino Copeland RN - 2022 10:03 AM EDT CECILIO [facility] TELEPHONIC OUTREACH Provider Action/FYI: Call to Pt [...] Copeland RN - 06/07/2022 11:27 AM EDT INSIGHT [facility] TELEPHONIC OUTREACH Provider Action/FYI: Call to Pt, left a message related to CHF/ Asthma symptoms or needs. Contact made with patient: No - Left message Hello my name is Dinorah Posada RN your Self Propelled Dredge Operator [facility] I am callingtoday for your bi-weekly [...] 07, 2022 11:27 AM documented in this encounterOhiohealth Mansfield Hospital07-14-2022 History of Present illness Narrative* Albino Copeland RN - 05/20/2022 1:54 PM EDT [facility] TELEPHONIC OUTREACH Provider Action/FYI: Call to Pt left a message to verify CHF/ Asthma symptoms or needs. Contact made with patient: No - Left message Scout my name is Dinorah Posada RN your Self Propelled Dredge Operator [facility] I am callingtoday for your bi-weekly [...] Copeland RN - 05/19/2022 9:09 AM EDT [facility] TELEPHONIC OUTREACH Provider Action/FYI: Call to Pt left a message to verify CHF/ Asthma symptoms or needs. Contact made with patient: No - Left message Helregis my name is Dinorah Posada RN your Self Propelled Dredge Operator [facility] I am callingtoday for your bi-weekly [...] 19, 2022 9:09 AM documented in this encounterOhiohealth Mansfield Hospital07-13-2022 Miscellaneous Notes* Telephone Encounter - Manuel Beebe MD - 05/19/2022 1:03 PM EDT Okayed * Telephone Encounter - Jessica Steele - 05/19/2022 12:44 PM EDT Patient calling back, he and his POA confirmed they have called [facility] directly. Electronically signed by Jessica Xiong [facility] at 05/19/2022 12:46 PM EDT * Telephone Encounter - Megan Rosales Pss - 05/19/2022 10:52 AM EDT Patient has [...] a message that he needs to call [facility] and re-establish his account with them since his POA put the account on hold while he was at a rehab facillity/hospital. Patient aware RX will be sent to pharmacy. No need to notify patient. Megan Rosales [facility] documented in this encounterOhiohealth Mansfield Hospital07-12-2022 History of Present illness Narrative* Munira Dickerson MD - 05/18/2022 4:28 PM EDT [facility] [address] ([address]) [facility] [address] [facility] [address] Steph Baumann is a 71 y.o. male [...] requiring operative repair, right, closed, initial encounter ([facility]) 2. Low back pain without sciatica, unspecified back pain laterality, unspecified chronicity Return in about 4 weeks (around 06/15/2022). Munira Dickerson MD documented in this [id number] Miscellaneous Notes* Telephone Encounter - Lashonda Moore LPN - 05/13/2022 4:18 PM EDT Friend Bob notified that handipcap mika is ready for crop picker in medical records and she verbalized understanding * Telephone Encounter - Olga Cavazos APRN.CNS - 05/13/2022 4:08 PM EDT ok * Telephone Encounter - Cyndee Hill RN - 05/12/2022 11:07 AM EDT Friend (Bob) calls to request a prescription for a handicap placard d/t patient receiving a letter from [facility] stating he needs an updated order. Pended per request. Bob will crop picker in medical records when ready and requests calling her at [phone]. Cyndee Hill RN documented in this encounterOhiohealth Mansfield Hospital06-28-2022 Miscellaneous Notes* Telephone Encounter - Kendra Bennett RN - 05/04/2022 10:57 AM EDT Sent request to Medical Records at [facility] to send over Medication list from TCU. Having them send to fax # [phone]. * Telephone Encounter - Cyndee Hill RN [...] Watt RN - 04/30/2022 8:34 AM EDT Bob Ferraro calls on behalf of patient. Patient was seen in [facility] ER for chest pain. Patient was worked up in the ER. Per Bob ER thinks it is more anxiety than cardiac. While on TCU patient was prescribed something for anxiety. Bob asking if provider can send in a prescription to help with anxiety to [facility] pharmacy? Please review and advise, Samina Watt RN documented in this encounterOhiohealth Mansfield Hospital06-15-2022 History of Present illness Narrative* Albino Copeland RN - 04/21/2022 9:18 AM EDT CECILIO CDM TELEPHONIC OUTREACH Provider Action/FYI: Spk with [...] like to speak with a social work team facilitator to help give you support for any [...] you up for automated weekly questionnaires through [employer]. This is an easy way for us [...] 21, 2022 1:16 PM documented in this encounterOhiohealth Mansfield Hospital06-10-2022 History of Present illness Narrative* Jana Lara [facility] - 04/16/2022 10:00 AM EDT Primary Care Pharmacy Visit REASON FOR CONSULT: DM GOALS: A1c < 8% CONSULTING PROVIDER: Olga Cavazos APRN.CNS Date of Consult: 01/08/22 Steph Baumann is a 71 year old male presenting for follow up visit by telephone. Patient consents to pharmacy collaborative practice agreement. Last seen by Olga Cavazos APRN.CNS on 01/12/22. Atlast LIFE ENRICHMENT DIRECTOR appt, patient was encouraged to follow up [...] had hip fracture and was following at [facility]. Discharged home on 04/14 Patient reports [...] not present. Adherence: denies missed doses. Pharmacy: [facility] Diabetes supplies: [employer] System: ACTIVE PROBLEM LIST Brain Tumor (Hcc) [...] Metformin Diarrhea Even low dose caused diarrhea Krakow [Hydrocodone-* Intolerance Hallucination Current Outpatient Medications Medication [...] TG 93 03/26/2021 The ASCVD Risk score (Winchester SUPA Oro, et al., 2013) failed to calculate for the following reasons: The patient has a prior MO or stroke diagnosis Albumin/Creat Ratio (mg/g) Date Value 11/06/2019 24 PHARMACOTHERAPY ASSESSMENT/PLAN: 1. Controlled type 2 diabetes mellitus without complication, with long-term current use of insulin ([facility]) - ICD9: 250.00, V58.67, ICD10: E11.9, Z79.4 [...] Lara PharmD, BCACP Primary Care Clinical Pharmacist [facility] The majority of the pharmacy visit (> 50%) was spent counseling and/or coordinating care for thepatient. [Telephonic] time was 16 minutes. documented in this encounterOhiohealth Mansfield Hospital06-02-2022 Miscellaneous Notes* Telephone Encounter - Sania Eagle LPN - 04/08/2022 4:17 PM EDT Order called back to [facility]. * Telephone Encounter - Manuel Beebe MD - 04/08/2022 4:01 PM EDT Will follow * Telephone Encounter - Kayleigh Hummel LPN - 04/06/2022 9:21 AM EDT Jasmyne from [facility] reports pt will be discharging from TCU at [facility] on 04/14/22 following a right hipfx. Will need nursing & PT, will pcp follow? Kayleigh Hummel LPN documented in this encounterOhiohealth Mansfield Hospital05-31-2022 History of Present illness Narrative* Albino Copeland RN - 04/06/2022 4:15 PM EDT PRIMARY CARE COORDINATION QUICK NOTE Provider Action/FYI Routed update to Dr. Parker Nelson with Pt he anticipates to be discharged to home from [facility] on 04/14/22, Instructed to schedule follow up Appt with Dr. Beebe/ Olga Cavazos, he verbalized understanding and appreciation for the follow-up. Patient identified by name and date . Dinorah Posada RN April 06, 2022 4:15 PM documented in this encounterOhiohealth Mansfield Hospital05-26-2022 Miscellaneous Notes* Telephone Encounter - Jana Lara RPh - 04/01/2022 2:45 PM EDT Noted, will follow up with patient at scheduled visit time. Jana Lara, RachD, BCACP Primary Care Clinical Pharmacist [facility] * Telephone Encounter - Samina Smith - 04/01/2022 2:39 PM EDT Bob returned your call. [facility]. Tentative discharge date is 04/14/22 and a follow up appointment has been scheduled for 04/16. If there are any issues or concerns, please call Bbo at [phone]. Samina Smith * Telephone Encounter - Jana Lara RPh - 04/01/2022 1:36 PM EDT Patient cancelled last pharmacy visit and is due for diabetes follow up to review blood sugars. Called and spoke with patient to offer pharmacy visit. Patient states he relies on caregiver Bob to make appts. Called and Left voicemail for Bob asking to return call to [phone] to schedulepharmacy visit. Rach KothariD, BCACP Primary Care Clinical Pharmacist [facility] documented in this encounterOhiohealth Mansfield Hospital05-20-2022 History of Present illness Narrative* Olga Cavazos APRN.LIFE ENRICHMENT DIRECTOR - 03/26/2022 4:06 PM EDT noted, monitor for discharge to SNF/home. Obtain records when available. * Albino Copeland RN - 03/26/2022 2:32 PM EDT CECILIO [facility] TELEPHONIC OUTREACH Provider Action/FYI: Routed update to Dr. Beebe- No Action required Spk with Pt he reported fall with fracture of Right Hip, he noted surgical repair, is currently at [facility], undetermined Length of Stay. Contact made [...] RN - 03/25/2022 4:41 PM EDT CECILIO [facility] TELEPHONIC OUTREACH Provider Action/FYI: Call to Pt to verify symptom status and needs. Contact made with patient: No - Left message Scout my name is Dinorah Posada RN your Self Propelled Dredge Operator [facility] I am calling today for your bi-weekly check in. I am sorry I missed your call. I will reach out to you again tomorrow. (if the third call I will reach out to you again next week) Enter next patient outreach date forthe using the Track Pt Outreach. End outreach. Dinorah Posada RN March 25, 2022 4:41 PM documented in this encounterOhiohealth Mansfield Hospital05-17-2022 History of Present illness Narrative* Munira Dickerson MD - 03/23/2022 4:05 PM EDT [facility] [address]) [facility] [address] [facility] [address] Stephyasmine Baumann is a 71 y.o. male being [...] No periprosthetic fractures. Intact right hip replacement. [employer] Workstation ID: [id number] 1. Hip fracture requiring operative repair, right, closed, initial encounter ([facility]) 2. Low back pain without sciatica, unspecified back pain laterality, unspecified chronicity Return for post mri. Munira Dickerson MD documented in this [id number] History of Present illness Narrative* Albino Copeland RN - 03/16/2022 4:30 PM EDT INSIGHT [facility] TELEPHONIC OUTREACH Provider Action/FYI: Call to Pt left a message to verify CHF/ Asthma symptom status and needs Contact made with patient: No - Left message Scout my name is Dinorah Posada RN your Self Propelled Dredge Operator [facility] I am calling today for your [...] RN - 03/15/2022 1:51 PM EDT INSIGHT [facility] TELEPHONIC OUTREACH Provider Action/FYI: Call to Pt left a message to verify CHF/ Asthma symptom status and needs Contact made with patient: No - Left message Hello my name is Dinorah Posada RN your Self Propelled Dredge Operator [facility] I am calling today for your bi-weekly check in. I am sorry I missed your call. I will reach out to you again tomorrow. (if the third call I will reach out to you again next week) Enter next patient outreach date forthe following using the Track Pt Outreach. End outreach. Dinorah Posada RN March 15, 2022 1:51 PM documented in this encounterOhiohealth Mansfield Hospital04-27-2022 History of Present illness Narrative* Albino Copeland RN - 03/03/2022 11:15 AM EDT INSIGHT CDM TELEPHONIC OUTREACH Provider Action/FYI: Call to Pt left a message to verify CHF/ Asthma symptoms and needs. Contact made with patient: No - Left message Scout my name is Dinorah Posada RN your Self Propelled Dredge Operator [facility] I am calling today for your bi-weekly check in. I am sorry I missed your call. I will reach out to you again tomorrow. (if the third call I will reach out to you again next week) Enter next patient outreach date forth following using the Track Pt Outreach. End outreach. Dinorah Posada RN March 03, 2022 11:16 AM documented in this encounterOhiohealth Mansfield Hospital04-20-2022 History of Present illness Narrative* Abby Chang MA - 02/24/2022 3:33 PM EDT WILBER FROM [facility] CALLED STATING THERE WAS SOME [...] MADE FOR 4 WEEKS. documented in this [id number] History of Present illness Narrative* Albino Copeland RN - 02/22/2022 9:12 AM EDT INSIGHT CDM TELEPHONIC OUTREACH Provider Action/FYI: Call to Pt left a message to verify CHF / Asthma or other symptoms. Contact made with patient: No - Left message Scout my name is Dinorah Posada RN your Self Propelled Dredge Operator [facility] I am calling today for your bi-weekly check in. I am sorry I missed your call. I will reach out to you again tomorrow. (if the third call I will reach out to you again next week) Enter next patient outreach date forthe following using the Track Pt Outreach. End outreach. Dinorah Posada RN February 22, 2022 9:13 AM documented in this encounterOhiohealth Mansfield Hospital04-08-2022 Miscellaneous Notes* Telephone Encounter - Jana Lara RPh - 02/12/2022 4:13 PM EDT Appt cancelled per patient request. Jana Lara, PharmD, BCACP Primary Care Clinical Pharmacist [facility] * Telephone Encounter - Olga Cavazos APRN.CNS - 02/12/2022 4:06 PM EDT Ok, monitor for discharge and reschedule as appropriate. * Telephone Encounter - Jazmin Tejeda LPN - 02/12/2022 11:57 AM EDT EDGAR Samuel for pt called to let you know pt fell on 02-09-22 and fractured his hip. Was at [facility] then transferred to [facility]. He is still there as of 02-12-22 and not sure what is goingto be done next. He has an phone apt scheduled with you Jana on 02-16-22 and they are cancelling this for now. If you want you can reach Bobmorro Ferraro at [phone]. Sending to PCP as FYI. Jazmin Tejeda LPN documented in this encounterOhiohealth Mansfield Hospital04-01-2022 History of Present illness Narrative* Albino Copeland RN - 02/05/2022 4:26 PM EDT CECILIO [facility] TELEPHONIC OUTREACH Provider Action/FYI: Call to Pt left a message to verify CHF/ Asthma symptom status. Contact made with patient: No - Left message Hello my name is Dinorah Posada RN your Self Propelled Dredge Operator [facility] the [facility] I am calling today for your bi-weekly check in. I am sorry I missed your call. I will reach out to you again tomorrow. (if the third call I will reach out to you again next week) Enter next patient outreach date forthe following business day using the Track Pt Outreach. End outreach. Dinorah Posada RN February 05, 2022 4:26 PM * Albion Copeland RN - 02/04/2022 8:35 AM EDT [facility] TELEPHONIC OUTREACH Provider Action/FYI: Call to Pt left a message to verify CHF/ Asthma symptom status. Contact made with patient: No - Left message Hello my name is Dinorah Posada RN your Self Propelled Dredge Operator [facility] I am calling today for your bi-weekly check in. I am sorry I missed your call. I will reach out to you again tomorrow. (if the third call I will reach out to you again next week) Enter next patient outreach date forthe following business day using the Track Pt Outreach. End outreach. : Dinorah Posada RN February 04, 2022 8:35 AM documented in this encounterOhiohealth Mansfield Hospital03-30-2022 Miscellaneous Notes* Telephone Encounter - Jana Lara [facility] - 02/03/2022 4:41 PM EDT Called and spoke with pharmacy as pt reports not able to crop picker new meter/test strips. Was only given lancets at pharmacy. Pharmacist states glucometer and test strip rx both need sig adjusted for medicare criteria. Resentcorrected scripts. The following approved medication requests have been transmitted electronically. Signed Prescriptions Disp Refills Blood-Glucose Meter 1 Each 0 Sig: Test Two times a day. Insulin Dep? Yes E11.9 DM 2 Authorizing Provider: OLGA CAVAZOS Ordering User: JANA LARA blood sugar diagnostic (BLOOD GLUCOSE TEST) test strip 200 Strip 4 Sig: Test Two times a day. Insulin Dep? Yes E11.9 DM 2 Authorizing Provider: OLGA CAVAZOS Ordering User: JANA LARA, PharmD, BCACP Primary Care Clinical Pharmacist [facility] documented in this encounterOhiohealth Mansfield Hospital03-29-2022 Miscellaneous Notes* Telephone Encounter - Dot Escoto LPN - 02/02/2022 4:13 PM EDT Khoi is asking for directions on glucose meter. Dot Escoto LPN * Telephone Encounter - Reina Mcgee LPN - 02/02/2022 4:10 PM EDT Khoi with [facility] calls to report [...] patient. Reina Mcgee LPN documented in this encounterOhiohealth Mansfield Hospital03-29-2022 History of Present illness Narrative* Jana Lara RPh - 02/02/2022 3:00 PM EDT Primary Care Pharmacy Visit REASON FOR CONSULT: DM GOALS: A1c < 8% CONSULTING PROVIDER: Olga Cavazos APRN.LIFE ENRICHMENT DIRECTOR Date of Consult: 01/08/22 Steph Baumann is [...] by a pharmacist. Last seen by Olga Cavazos APRN.CNS on 01/12/22. At last LIFE ENRICHMENT DIRECTOR appt, patient was encouraged to follow up [...] not present. Adherence: denies missed doses. Pharmacy: [facility] Diabetes supplies: [employer] Organization System: ACTIVE PROBLEM LIST Brain Tumor (Hcc) [...] Metformin Diarrhea Even low dose caused diarrhea [place] [Hydrocodone-* Intolerance Hallucination Medication List Medication Directions [...] TG 93 03/26/2021 The ASCVD Risk score (Winchestergianna COWART Jr., et al., 2013) failed to calculate for the following reasons: The patient has a prior MO or stroke diagnosis Albumin/Creat Ratio (mg/g) Date Value 11/06/2019 24 PHARMACOTHERAPY ASSESSMENT/PLAN: 1. Controlled type 2 diabetes mellitus without complication, with long-term current use of insulin ([facility]) - ICD9: 250.00, V58.67, ICD10: E11.9, Z79.4 [...] medications. Will contact external cardiology provider - [facility] for clarification. See telephone encounter for medication clarification Follow up: Patient is scheduled to see PCP on 03/29/22. Patient to follow up with PharmD on 02/16/22. Patient verbalized understanding of instructions. Jana Lara, RachD, BCACP Primary Care Clinical Pharmacist [facility] The majority of the pharmacy visit (> 50%) was spent counseling and/or coordinating care for thepatient. [Face to Face] time was 57 minutes. documented in this encounterOhiohealth Mansfield Hospital07-10-2021 Miscellaneous Notes* Telephone Encounter - Manuel Beebe MD - 05/16/2021 9:13 PM EDT Below noted. Grateful for the FYI hood Villavicencio. Per our scales, he had lost weight [...] kg (182 lb) * Telephone Encounter - Alfredo Gupta RN - 05/08/2021 9:24 AM EDT [facility]- reports patient's weight is 147 pounds today. She believes patient may have lost 30 pounds since January. Our weight checks: 6-21: 151 # 04-03-21: 148 # 02-13-21: 152 # 3-21: 173 # 05-28-20: 171 # documented in this encounterOhiohealth Mansfield Hospital03-26-2021 History of Past illness Narrative* Problem [...] this encounter (statuses as of 10/04/2022) [facility] of Past illness Narrative* Problem [...] this encounter (statuses as of 10/11/2022) [facility] of Past illness Narrative* Problem [...] this encounter (statuses as of 10/19/2022) [facility] of Past illness Narrative* Problem [...] this encounter (statuses as of 11/24/2022) [facility] of Past illness Narrative* Problem [...] this encounter (statuses as of 12/23/2022) [facility] of Past illness Narrative* Problem [...] this encounter (statuses as of 01/03/2023) [facility] of Past illness Narrative* Problem [...] this encounter (statuses as of 01/05/2023) [facility] of Past illness Narrative* Problem [...] this encounter (statuses as of 02/02/2023) [facility] of Past illness Narrative* Problem [...] this encounter (statuses as of 02/10/2023) [facility] of Past illness Narrative* Problem [...] this encounter (statuses as of 02/25/2023) [facility] of Past illness Narrative* Problem [...] this encounter (statuses as of 03/10/2023) [facility] of Past illness Narrative* Problem [...] this encounter (statuses as of 03/10/2023) [facility] of Past illness Narrative* Problem [...] this encounter (statuses as of 03/15/2023) [facility] of [facility] illness Narrative* Problem [...] this encounter (statuses as of 04/11/2023) [facility] of [facility] illness Narrative* Problem [...] this encounter (statuses as of 04/12/2023) [facility] of [facility] illness Narrative* Problem [...] this encounter (statuses as of 04/13/2023) [facility] illness Narrative* Problem [...] this encounter (statuses as of 04/13/2023) [facility] Narrative* Problem [...] this encounter (statuses as of 04/13/2023) [facility] of [facility] illness Narrative* Problem [...] this encounter (statuses as of 04/22/2023) [facility] History of Past illness Narrative* Problem [...] this encounter (statuses as of 04/25/2023) [facility] History of Past illness Narrative* Problem [...] this encounter (statuses as of 06/28/2023) [facility] History of Past illness Narrative* Problem [...] this encounter (statuses as of 07/22/2023) [facility] History of Past illness Narrative* Problem [...] this encounter (statuses as of 08/13/2023) [facility] History of Past illness Narrative* Problem [...] this encounter (statuses as of 09/06/2023) [facility] History of Past illness Narrative* Problem [...] this encounter (statuses as of 09/15/2023) [facility] History of Past illness Narrative* Problem [...] this encounter (statuses as of 09/15/2023) [facility] History of Past illness Narrative* Problem [...] this encounter (statuses as of 09/21/2023) [facility] History of Past illness Narrative* Problem [...] this encounter (statuses as of 09/23/2023) [facility] History of Past illness Narrative* Problem [...] this encounter (statuses as of 09/30/2023) [facility] History of Past illness Narrative* Problem [...] of this encounter (statuses as of 12/13/2023) [facility] History of Past illness Narrative* Problem [...] of this encounter (statuses as of 12/20/2023) [facility] History of Past illness Narrative* Problem [...] of this encounter (statuses as of 12/22/2023) [facility] History of Past illness Narrative* Problem [...] of this encounter (statuses as of 12/22/2023) [facility] History of Past illness Narrative* Problem [...] of this encounter (statuses as of 12/27/2023) [facility] History of Past illness Narrative* Problem [...] of this encounter (statuses as of 01/06/2024) [facility] History of Past illness Narrative* Problem [...] of this encounter (statuses as of 01/19/2024) [facility]12-06-2019 Evaluation note* Diagnosis Onset Date Resolution Status Cirrhosis acute [id number] acute Biventricular ICD (implantab le cardioverter-defibrillator) in [...] 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 [id number] acute [id number] [facility] Work Phone: 1([phone]) 476-885412-06-2019 Evaluation note* Diagnosis Onset Date Resolution Status [...] 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 [id number] acute [id number] acute Asthma acute Atrial fibrillation acute Benign prostate hyperplasia acute Cirrhosis of liver acute Closed right hip fracture ac osage Debility acute Diabetes mellitus acute Gastroesophageal reflux disease acute FARIAS (nonalcoholic steatohepatitis) acute Prostate cancer acute Seizure disorder acute Stroke acute Chronic kidney disease, stage 3a chronic Chronic systolic congestive heart failure chronic Prostate cancer acute [id number] acute [id number] acute [facility] Work Phone: [phone] 539-760112-06-2019 Evaluation note* Diagnosis Onset Date Resolution Status [...] le cardioverter-defibrillator) in place October 12, 2019 [facility] Chronic combined systolic an d diastolic CHF (congestive heart failure) chronic Longstanding persistent atrial fibrillation chronic Nonischemic cardiomyopathy c hronic 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 [id number] acute [id number] acute Asthma acute Atrial fibrillation acute Benign prostate hyperplasia acute Cirrhosis of liver acute Closed right hip fracture ac osage Debility acute Diabetes mellitus acute Gastroesophageal reflux disease acute FARIAS (nonalcoholic steatohepatitis) acute Prostate cancer acute Seizure disorder acute Stroke acute Chronic kidney disease, stage 3a chronic Chronic systolic congestive heart failure chronic Prostate cancer acute [id number] acute [id number] acute EJG-[id number] acute [facility] Work Phone: [phone] 812-297412-06-2019 Evaluation note* Diagnosis Onset Date Resolution Status 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 October 12, 2019 [facility] Chronic combined systolic an d diastolic CHF (congestive heart failure) chronic Longstanding persistent atrial fibrillation chronic Nonischemic cardiomyopathy c hronic 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 Right ventricular systolic dysfunction resolved 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 October 12, 2019 [facility] Chronic combined systolic an d diastolic CHF (congestive heart failure) chronic Longstanding persistent atrial fibrillation chronic Nonischemic cardiomyopathy c hronic 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 Right ventricular systolic dysfunction resolved Cirrhosis acute 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 October 12, 2019 [facility] Chronic combined systolic an d diastolic CHF (congestive heart failure) chronic Essential (primary) hypertension chronic Nonischemic cardiomyopathy c hronic 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 October 12, 2019 [facility] Chronic combined systolic an d diastolic CHF (congestive heart failure) chronic Longstanding persistent atrial fibrillation chronic Nonischemic cardiomyopathy c hronic 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 [id number] acute [id number] acute Atrial fibrillation acute Benign prostate hyperplasia acute Cirrhosis of liver acute Debility acute Diabetes mellitus acute Gastroesophageal reflux disease acute FARIAS (nonalcoholic steatohepatitis) acute Prostate cancer acute Seizure disorder acute Stroke acute Chronic kidney disease, stage 3a chronic Asthma resolved Chronic systolic congestive heart failure resolved Closed right hip fracture re solved Prostate cancer acute [id number] acute [id number] acute LIG-[id number] acute Acute heart failure with red uced ejection fraction and diastolic dysfunction acute Chest pain acute Acute and chronic respirator y failure with hypoxia chronic [facility] Work Phone: [phone] Evaluation note* Diagnosis Onset Date Resolution Status 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 October 12, 2019 [facility] Chronic combined systolic an d diastolic CHF (congestive heart failure) chronic Longstanding persistent atrial fibrillation chronic Nonischemic cardiomyopathy c hronic 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 Right ventricular systolic dysfunction resolved 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 October 12, 2019 [facility] Chronic combined systolic an d diastolic CHF (congestive heart failure) chronic Longstanding persistent atrial fibrillation chronic Nonischemic cardiomyopathy c hronic 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 Right ventricular systolic dysfunction resolved Cirrhosis acute 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 October 12, 2019 [facility] Chronic combined systolic an d diastolic CHF (congestive heart failure) chronic Essential (primary) hypertension chronic Nonischemic cardiomyopathy c hronic 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 October 12, 2019 [facility] Chronic combined systolic an d diastolic CHF (congestive heart failure) chronic Longstanding persistent atrial fibrillation chronic Nonischemic cardiomyopathy c hronic 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 [id number] acute [id number] acute Atrial fibrillation acute Benign prostate hyperplasia acute Cirrhosis of liver acute Debility acute Diabetes mellitus acute Gastroesophageal reflux disease acute FAIRAS (nonalcoholic steatohepatitis) acute Prostate cancer acute Seizure disorder acute Stroke acute Chronic kidney disease, stage 3a chronic Asthma resolved Chronic systolic congestive heart failure resolved Closed right hip fracture re solved Prostate cancer acute [id number] acute [id number] acute UQF-[id number] acute Acute heart failure with red uced ejection fraction and diastolic dysfunction acute Chest pain acute Acute and chronic respirator y failure with hypoxia chronic 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 October 12, 2019 [facility] Chronic combined systolic an d diastolic CHF (congestive heart failure) chronic Longstanding persistent atrial fibrillation chronic Nonischemic cardiomyopathy c hronic 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 [facility] Work Phone: [phone] Evaluation note* Diagnosis Onset Date Resolution Status Chest pain resolved 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 October 12, 2019 [facility] Chronic combined systolic an d diastolic CHF (congestive heart failure) chronic Longstanding persistent atrial fibrillation chronic Nonischemic cardiomyopathy c hronic 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 Abnormality of gait and mobility chronic History of CVA (cerebrovascular accident) chronic Polyneuropathy chronic [id number] acute Abnormality of gait and mobility chronic Absent pedal pulses chronic History of CVA (cerebrovascular accident) chronic Polyneuropathy chronic [facility] Work Phone: [phone] 571-348912-06-2019 Evaluation note* Diagnosis Onset Date Resolution Status 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 October 12, 2019 [facility] Chronic combined systolic an d diastolic CHF (congestive heart failure) chronic Longstanding persistent atrial fibrillation chronic Nonischemic cardiomyopathy c hronic 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 Parkinson's disease acute [id number] acute Abnormality of gait and mobility chronic Absent pedal pulses chronic History of CVA (cerebrovascular accident) chronic Polyneuropathy chronic [id number] acute [facility] Work Phone: [phone] 413-768712-06-2019 Evaluation note* Diagnosis Onset Date Resolution Status [id number] acute 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 October 12, 2019 [facility] Longstanding persistent atrial fibrillation chronic Nonischemic cardiomyopathy [...] acut e VALENCIA (acute kidney injury) ac osage Generalized weakness acute Transient hypotension acute VALENCIA (acute kidney injury) ac osage Elevated troponin acute Generalized weakness acute [facility] Work Phone: [phone] 292-630712-06-2019 Evaluation note* Diagnosis Onset Date Resolution Status [id number] acute 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 October 12, 2019 [facility] Longstanding persistent atrial fibrillation chronic Nonischemic cardiomyopathy c hronic 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 October 12, 2019 [facility] Chronic combined systolic an d diastolic CHF (congestive heart failure) chronic Longstanding persistent atrial fibrillation chronic Nonischemic cardiomyopathy c hronic 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 Adult failure to thrive acut e VALENCIA (acute kidney injury) ac osage Generalized weakness acute Transient hypotension acute Adult failure to thrive acut e VALENCIA (acute kidney injury) ac osage Elevated troponin acute Generalized weakness acute [facility] Work Phone: [phone] Evaluation note* Diagnosis Onset Date Resolution Status 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 October 12, 2019 [facility] Longstanding persistent atrial fibrillation chronic Nonischemic cardiomyopathy c hronic 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 October 12, 2019 [facility] Chronic combined systolic an d diastolic [...] acute VALENCIA (acute kidney injury) re solved [facility] Work Phone: [phone] Evaluation note* Diagnosis Onset Date Resolution Status [...] injury) re solved Toxic metabolic encephalopathy resolved [id number] acute [facility] Work Phone: [phone] 145-949912-06-2019 Evaluation note* Diagnosis Onset Date Resolution Status Atrial fibrillation acute Cirrhosis acute 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 October 12, 2019 [facility] Chronic combined systolic an d diastolic CHF (congestive heart failure) chronic Essential (primary) hypertension chronic Nonischemic cardiomyopathy c hronic [facility] Work Phone: [phone] Evaluation note* Diagnosis Onset Date Resolution Status Admit Date Atrial fibrillation acute 2024 1:17pm Cirrhosis acute June 18 025 1:17pm Biventricular ICD (implantable cardioverter-defibrillator) in place October 12, 2019June 18, 2025 1:17pm Chronic combined systolic and diastolic CHF (congestive heart failure) chronic 2024 1:17pm Essential (primary) hypertension chronic June 18 1:17pm Nonischemic cardiomyopathy chronic June 18, 2025 1:17pm [facility] Work Phone: [phone] 158-589712-06-2019 Evaluation note* Diagnosis Onset Date Resolution Status Admit Date Biventricular ICD (implantable cardioverter-defibrillator) in place October 12, 2019June 18, 2025 1:15pm Chronic combined systolic and diastolic CHF (congestive heart failure) chronic 2024 1:15pm Longstanding persistent atrial fibrillation chronic June 18, 2025 1:15pm Nonischemic cardiomyopathy chronic June 18, 2025 1:15pm Atrial fibrillation acute 2024 1:17pm Cirrhosis acute June 18, 2 025 1:17pm Biventricular ICD (implantable cardioverter-defibrillator) in place October 12, 2019June 18, 2025 1:17pm Chronic combined systolic and diastolic CHF (congestive heart failure) chronic 2024 1:17pm Essential (primary) hypertension chronic June 18 1:17pm Nonischemic cardiomyopathy chronic June 18, 2025 1:17pm [facility] Work Phone: [phone] 544-804012-06-2019 Evaluation note* Diagnosis Onset Date Resolution Status Admit Date Biventricular ICD (implantable cardioverter-defibrillator ) in place October 12, 2019June 18, 2025 1:15pm Chronic combined systolic and diastolic CHF (congestive heart failure) chronic 2024 1:15pm Longstanding persistent atrial fibrillation June 18, 2025 1:15pm Nonischemic cardiomyopathy chronic June 18, 2025 1:15pm Atrial fibrillation acute 2024 1:17pm Cirrhosis acute June 18 025 1:17pm Biventricular ICD (implantable cardioverter-defibrillator ) in place October 12, 2019June 18, 2025 1:17pm Chronic combined systolic and diastolic CHF (congestive heart failure) chronic 2024 1:17pm Essential (primary) hypertension chronic June 18 1:17pm Nonischemic cardiomyopathy chronic June 18, 2025 1:17pm Muscle hypertonia acute Septemb er 2024 2:55pm Abnormality of gait and mobility chronic July 16 025 2:55pm [facility] Work Phone: [phone] 345-914812-06-2019 Evaluation note* Diagnosis Onset Date Resolution Status Admit Date Biventricular ICD (implantable cardioverter-defibrillator ) in place October 12, 2019June 18, 2025 1:15pm Chronic combined systolic and diastolic CHF (congestive heart failure) chronic 2024 1:15pm Longstanding persistent atrial fibrillation chronic June 18, 2025 1:15pm Nonischemic cardiomyopathy chronic June 18, 2025 1:15pm Atrial fibrillation acute 2024 1:17pm Cirrhosis acute June 18 025 1:17pm Biventricular ICD (implantable cardioverter-defibrillator ) in place October 12, 2019June 18, 2025 1:17pm Chronic combined systolic and diastolic CHF (congestive heart failure) chronic 2024 1:17pm Essential (primary) hypertension chronic June 18 1:17pm Nonischemic cardiomyopathy June 18, 2025 1:17pm Muscle hypertonia acute Septemb er 2024 2:55pm Abnormality of gait and mobility chronic July 16, 025 2:55pm Parkinson's disease chronic Septe mber 2024 2:55pm [facility] Work Phone: 1([phone] 178-172204-20-2017 History of Past illness Narrative* Problem Noted [...] this encounter (statuses as of 02/02/2022) [facility] of Past illness Narrative* Problem [...] this encounter (statuses as of 02/03/2022) [facility] History of Past illness Narrative* Problem [...] this encounter (statuses as of 02/05/2022) [facility] History of Past illness Narrative* Problem [...] this encounter (statuses as of 02/09/2022) [facility] History of Past illness Narrative* Problem [...] this encounter (statuses as of 02/15/2022) [facility] of Past illness Narrative* Problem [...] this encounter (statuses as of 02/24/2022) [facility] of Past illness Narrative* Problem [...] this encounter (statuses as of 02/26/2022) [facility] of Past illness Narrative* Problem [...] this encounter (statuses as of 03/05/2022) [facility] of Past illness Narrative* Problem [...] this encounter (statuses as of 03/16/2022) [facility] of Past illness Narrative* Problem [...] this encounter (statuses as of 03/26/2022) [facility] of Past illness Narrative* Problem [...] this encounter (statuses as of 04/01/2022) [facility] of Past illness Narrative* Problem [...] this encounter (statuses as of 04/06/2022) [facility] illness Narrative* Problem [...] this encounter (statuses as of 04/08/2022) [facility] illness Narrative* Problem [...] this encounter (statuses as of 04/16/2022) [facility] illness Narrative* Problem [...] this encounter (statuses as of 04/23/2022) [facility] illness Narrative* Problem [...] this encounter (statuses as of 05/04/2022) [facility] illness Narrative* Problem [...] this encounter (statuses as of 05/13/2022) [facility] of Past illness Narrative* Problem [...] this encounter (statuses as of 05/19/2022) [facility] illness Narrative* Problem [...] this encounter (statuses as of 05/20/2022) [facility] of Past illness Narrative* Problem [...] this encounter (statuses as of 2022) [facility] illness Narrative* Problem [...] this encounter (statuses as of 06/15/2022) [facility] illness Narrative* Problem [...] this encounter (statuses as of 06/24/2022) [facility] illness Narrative* Problem [...] this encounter (statuses as of 07/22/2022) [facility] illness Narrative* Problem [...] this encounter (statuses as of 07/29/2022) [facility] illness Narrative* Problem [...] this encounter (statuses as of 08/13/2022) [facility] illness Narrative* Problem [...] this encounter (statuses as of 09/02/2022) [facility] illness Narrative* Problem [...] this encounter (statuses as of 09/03/2022) [facility] illness Narrative* Problem [...] this encounter (statuses as of 09/06/2022) [facility] of Past illness Narrative* Problem [...] this encounter (statuses as of 09/15/2022) [facility] of Past illness Narrative* Problem [...] this encounter (statuses as of 09/17/2022) [facility] Past illness Narrative* Problem [...] this encounter (statuses as of 09/17/2022) [facility] June 26, 2023 9:31am Note Date/Time June 26, 2023 9: 23am [facility] Medical Records Department [address] [place] [address] Transfer to [facility] MR#: [id number] Acct: [id number] Name: STEPH BAUMANN Rep #:[id number] : 1950 73 From: Norris Chávez PCP: Dr. Manuel Beebe MD Status:AD M IN Certification of patient admission REQUIRED AT TIME OF ADMISSION. I CERTIFY THAT POST-HOSPITAL ECF SERVICES ARE REQUIRED TO BE GIVEN ON AN IN-PATIENT BASIS BECAUSE OF THE ABOVE NAMED PATIENT'S NEED FOR SKILLED NURSING CARE ON A CONTINUING BASIS FOR THE CONDITION(S) FOR WHICH HE/SHE WAS RECEIVING IN-PATIENT HOSPITAL SERVICES PRIOR TO HIS/HER TRANSFER TO THE F. 06/26/23 0931<Electronically signed by Norris Orellana MD> [...] 1.1. BUN 22. 06/25: VALENCIA resolved. BUNs/creatinine 17.18. 2. Leukocytosis -Left shift is present -Chest [...] Provider: Norris Orellana Primary Care Provider: Manuel eBebe Consulting Providers: Maximo Addison; Quynh Araya; Chandana [...] controlled bisacodyl 10 mg suppository 10 mg WV DAILY PRN (Reason: constipation) Rx Instructions: insert [...] in before D/C Order can be placed): Longterm Facility 06/26/23930 <Electronically signed by Norris Orellana MD> Cosigner Signature (if applicable): CC: Dr. Quynh Araya DO; Dr. Manuel Beebe MD; Dr. Maximo Addison MD; Dr. Chandana Jain MD ~ [facility] Work Phone: Discharge summary Author Norris Orellana [facility] June 26, 2023 9:39am Note Date/Time June 26, 2023 9: 39am [facility] Medical Records Department [address] [place] [address] Discharge Summary 06/26/23930 MR#: [id number] Acct: [id number] Name: STEPH BAUMANN Rep #:[id number] : 1950 73 From: Norris Chávez PCP: Dr. Manuel Beebe MD Status:AD M IN [facility] Prov[facility] Date of Admission: 06/21/23 Date [...] 1.1. BUN . 06/25: VALENCIA resolved. BUNs/creatinine 17/.18. 06/26: Bumex 1 mg daily as needed [...] -Add lidocaine patch 06/24: Ortho surgery Dr. Mollison consult reviewed and appreciated. X-ray was negative [...] bisacodyl 10 mg rectal suppository 10 mg WV DAILY PRN constipation 06/21/23 dulaglutide 1.5 mg/0.5 [...] controlled bisacodyl 10 mg suppository 10 mg WV DAILY PRN (Reason: constipation) Rx Instructions: insert [...] in before D/C Order can be placed): Longterm Facility Charges/Coding Visit Charges Inpatient E&M: 68519 Disch Hosp >30min 06/26/23 0939 <Electronically signed by Norris Orellana MD> Cosigner Signature (if applicable): CC: Dr. Manuel Beebe MD; Dr. Norris Orellana MD~ Signed [facility] Work Phone: Evaluation note* Diagnosis Controlled type 2 diabetes mellitus without complication, with long-term current use of insulin (HCC) documented in this encounter [facility] note* Diagnosis Controlled type 2 diabetes mellitus without complication, with long-term current use of insulin (HCC)- Primary documented in this encounter [facility] note* Diagnosis Controlled type 2 diabetes mellitus without complication, with long-term current use of insulin (HCC)- Primary Medication management Encounter for long-term (current) use of other medications documented in this encounter [facility] note* Diagnosis Hip fracture requiring operative repair, right, closed, initial encounter (FORM[facility]LY [facility])- Primary Status post hip hemiarthroplasty documented in this encounter [facility] note* Diagnosis Pain- Primary Generalized pain documented in this encounter [facility] note* Diagnosis Pain- Primary Generalized pain documented in this encounter [facility] note* Diagnosis Hip fracture requiring operative repair, right, closed, initial encounter ([facility])- Primary Low back pain without sciatica, unspecified back pain laterality, unspecified chronicity documented in this encounter [facility] note* Diagnosis Low back pain without sciatica, unspecified back pain laterality, unspecified chronicity- Primary documented in this encounter [facility] note* Diagnosis Controlled type 2 diabetes mellitus without complication, with long-term current use of insulin (HCC)- Primary documented in this encounter [facility] note* Diagnosis Brain tumor (HCC)- Primary Neoplasm of unspecified nature of brain Moderate persistent asthma without complication Unspecified asthma Chronic diastolic CHF (congestive heart failure) (HCC) Chronic diastolic heart failure documented in this encounter [facility] note* Diagnosis Hip fracture requiring operative repair, right, closed, initial encounter ([facility])- Primary Low back pain without sciatica, unspecified back pain laterality, unspecified chronicity documented in this encounter [facility] note* Diagnosis Controlled type 2 diabetes mellitus without complication, with long-term current use of insulin (HCC) Essential hypertension, benign documented in this encounter [facility] note* Diagnosis Onset Date Resolution Status [id number] acute Atrial fibrillation acute Benign prostate hyperplasia acute Cirrhosis of liver acute Debility acute Diabetes mellitus acute Gastroesophageal reflux disease acute FARIAS (nonalcoholic steatohepatitis) acute Prostate cancer acute Seizure disorder acute Stroke acute Chronic kidney disease, stage 3a chronic Asthma resolved Chronic systolic congestive heart failure resolved Closed right hip fracture re solved Prostate cancer acute [id number] acute [id number] acute [id number] acute Chest pain resolved 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 October 12, 2019 [facility] Chronic combined systolic an d diastolic CHF (congestive heart failure) chronic Longstanding persistent atrial fibrillation chronic Nonischemic cardiomyopathy c hronic 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 Abnormality of gait and mobility acute History of CVA (cerebrovascular accident) chronic Polyneuropathy [facility] Work Phone: Evaluation note* Diagnosis Hip fracture requiring operative repair, right, closed, initial encounter ([facility])- Primary Status post [facility]arth[facility] Diagnosis Onset Date Resolution Status Atrial fibrillation acute Benign prostate hyperplasia acute Cirrhosis of liver acute Debility acute Diabetes mellitus acute Gastroesophageal reflux disease acute FARIAS (nonalcoholic steatohepatitis) acute Prostate cancer acute Seizure disorder acute Stroke acute Chronic kidney disease, stage 3a chronic Asthma resolved Chronic systolic congestive heart failure resolved Closed right hip fracture re solved Prostate cancer acute [id number] acute [id number] acute [id number] acute Chest pain resolved 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 October 12, 2019 [facility] Chronic combined systolic an d diastolic CHF (congestive heart failure) chronic Longstanding persistent atrial fibrillation chronic Nonischemic cardiomyopathy c hronic 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 Abnormality of gait and mobility acute History of CVA (cerebrovascular accident) chronic Polyneuropathy [facility] Work Phone: Evaluation note* Diagnosis Status post hip hemiarthroplasty- Primary [facility] Diagnosis Status post hip hemiarthroplasty- Primary [facility] Diagnosis Onset Date Resolution Status Atrial fibrillation acute Benign prostate hyperplasia acute Cirrhosis of liver acute Debility acute Diabetes mellitus acute Gastroesophageal reflux disease acute FARIAS (nonalcoholic steatohepatitis) acute Prostate cancer acute Seizure disorder acute Stroke acute Chronic kidney disease, stage 3a chronic Asthma resolved Chronic systolic congestive heart failure resolved Closed right hip fracture re solved [id number] acute Chest pain resolved 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 October 12, 2019 [facility] Chronic combined systolic an d diastolic CHF (congestive heart failure) chronic Longstanding persistent atrial fibrillation chronic Nonischemic cardiomyopathy c hronic 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 Abnormality of gait and mobility acute History of CVA (cerebrovascular accident) chronic Polyneuropathy chronic [id number] acute [facility] Work Phone: Evaluation note* Diagnosis Liver disease- Primary Unspecified disorder of liver [facility] Diagnosis Liver disease Unspecified disorder of liver [facility] Diagnosis Tobacco abuse Tobacco use disorder [facility] Diagnosis Onset Date Resolution Status [id number] acute Abnormality of gait and mobility chronic Absent pedal pulses chronic History of CVA (cerebrovascular accident) chronic Polyneuropathy chronic Atrial fibrillation acute Cirrhosis acute 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 October 12, 2019 [facility] Chronic combined systolic an d diastolic CHF (congestive heart failure) chronic Essential (primary) hypertension chronic Nonischemic cardiomyopathy c hronic Atrial fibrillation acute 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 October 12, 2019 [facility] Chronic combined systolic an d diastolic CHF (congestive heart failure) chronic Longstanding persistent atrial fibrillation chronic Nonischemic cardiomyopathy c [facility] Work Phone: Evaluation note* Diagnosis Onset Date Resolution Status Abnormality of gait and mobility chronic Absent pedal pulses chronic History of CVA (cerebrovascular accident) chronic Polyneuropathy chronic Atrial fibrillation acute Cirrhosis acute 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 October 12, 2019 [facility] Chronic combined systolic an d diastolic [...] le cardioverter-defibrillator) in place October 12, 2019 [facility] Chronic combined systolic an d diastolic CHF (congestive heart failure) chronic Longstanding persistent atrial fibrillation chronic Nonischemic cardiomyopathy c hronic 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 [facility] Work Phone: Evaluation note* Diagnosis Rash Rash and other nonspecific skin eruption [facility] Diagnosis Liver disease- Primary Unspecified disorder of liver Other cirrhosis of liver (HCC) [facility] Diagnosis Liver disease Unspecified disorder of liver [facility] Diagnosis Onset Date Resolution Status Parkinson's disease acute [id number] acute Abnormality of gait and mobility chronic Absent pedal pulses chronic History of CVA (cerebrovascular accident) chronic Polyneuropathy chronic [id number] acute 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 October 12, 2019 [facility] Longstanding persistent atrial fibrillation chronic Nonischemic [...] acute History of CVA (cerebrovascular accident) chronic [facility] Work Phone: Evaluation note* Diagnosis Hypotension due to drugs- Primary Other iatrogenic hypotension Nausea Nausea alone Adult failure to thrive Type 2 diabetes mellitus with other specified complication, with long-term current use of insulin (HCC) Paroxysmal atrial fibrillation (HCC) Atrial fibrillation Chronic diastolic CHF (congestive heart failure) (HCC) Chronic diastolic heart failure Parkinson's disease (HCC) Paralysis agitans [facility] Diagnosis Onset Date Resolution Status Parkinson's disease acute [id number] acute Abnormality of gait and mobility chronic Absent pedal pulses chronic History of CVA (cerebrovascular accident) chronic Polyneuropathy chronic [id number] acute 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 October 12, 2019 [facility] Longstanding persistent atrial fibrillation chronic Nonischemic cardiomyopathy c hronic 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 October 12, 2019 [facility] Chronic combined systolic an d diastolic CHF (congestive heart failure) chronic Longstanding persistent atrial fibrillation chronic Nonischemic cardiomyopathy c hronic 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 Adult failure to thrive acut e Debility acute Parkinson's disease acute Weakness acute History of CVA (cerebrovascular accident) chronic Adult failure to thrive acut e VALENCIA (acute kidney injury) ac osage Generalized weakness acute Transient hypotension acute [facility] Work Phone: Evaluation note* Diagnosis Controlled type 2 diabetes mellitus without complication, with long-term current use of insulin (HCC)- Primary Essential hypertension, benign 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 Moderate persistent asthma without complication Unspecified asthma Cirrhosis of liver with ascites, unspecified hepatic cirrhosis type (HCC) [facility] Diagnosis Onset Date Resolution Status Adult failure to thrive acut e Generalized weakness acute Transient hypotension acute VALENCIA (acute kidney injury) re solved Adult failure to thrive acut e Elevated troponin acute Generalized weakness acute VALENCIA (acute kidney injury) re solved Atrial fibrillation acute Cirrhosis acute 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 October 12, 2019 [facility] Chronic combined systolic an d diastolic CHF (congestive heart failure) chronic Essential (primary) hypertension chronic Nonischemic cardiomyopathy c hronic [facility] Work Phone: Evaluation note* Diagnosis Onset Date Resolution Status Adult failure to thrive acut e Generalized weakness acute Transient hypotension acute VALENCIA (acute kidney injury) re solved Adult failure to thrive acut e Elevated troponin acute Generalized weakness acute VALENCIA (acute kidney injury) re solved Atrial fibrillation acute Cirrhosis acute 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 October 12, 2019 [facility] Chronic combined systolic an d diastolic CHF (congestive heart failure) chronic Essential (primary) hypertension chronic Nonischemic cardiomyopathy c hronic Acute alteration in mental status acute Acute dehydration acute VALENCIA (acute kidney injury) ac osage Elevated troponin acute Hyperbilirubinemia acute Leukocytosis acute Nausea & vomiting acute Right hip pain acute Toxic metabolic encephalopathy acute [facility] Work Phone: Evaluation note* Diagnosis Onset Date [...] injury) re solved Toxic metabolic encephalopathy resolved [id number] acute [facility] Work Phone: Evaluation note* Diagnosis Onset Date [...] injury) re solved Toxic metabolic encephalopathy resolved [id number] acute [facility] Work Phone: Evaluation note* Diagnosis Chronic diastolic CHF (congestive heart failure) (HCC)- Primary Chronic diastolic heart failure [facility] Diagnosis Onset Date Resolution Status Acute alteration in mental status acute Acute dehydration acute Elevated troponin acute Hyperbilirubinemia acute Leukocytosis acute Nausea & vomiting acute Right hip pain acute VALENCIA (acute kidney injury) re solved Toxic metabolic encephalopathy resolved [id number] acute Atrial fibrillation acute Cirrhosis acute 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 October 12, 2019 [facility] Chronic combined systolic an d diastolic CHF (congestive heart failure) chronic Essential (primary) hypertension chronic Nonischemic cardiomyopathy c hronic [facility] Work Phone: Evaluation note* Diagnosis Prostate cancer (HCC)- Primary Malignant neoplasm of prostate 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) Malignant neoplasm of prostate [facility]* Diagnosis 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 Personal history of contact with and (suspected) exposure to potentially hazardous body fluids [facility] Diagnosis Prostate cancer (HCC)- Primary Malignant neoplasm of prostate [facility] Diagnosis Age-related osteoporosis without current pathological fracture- Primary Senile osteoporosis Prostate cancer (HCC) Malignant neoplasm of prostate [facility] Diagnosis Liver disease- Primary Unspecified disorder of liver Cirrhosis of liver with ascites, unspecified hepatic cirrhosis type (HCC) (HCC) [facility] Diagnosis Liver disease Unspecified disorder of liver Other cirrhosis of liver (HCC) [facility] Diagnosis Prostate cancer (HCC)- Primary Malignant neoplasm of prostate [facility] Diagnosis Right hip pain Pain in joint, pelvic region and thigh Prostate cancer (HCC) Malignant neoplasm of prostate [facility] Diagnosis Prostate cancer (HCC)- Primary Malignant neoplasm of prostate Right hip pain Pain in joint, pelvic region and thigh [facility] Diagnosis 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- Primary History of right hip replacement [facility] Diagnosis Age-related osteoporosis without current pathological fracture- Primary Senile osteoporosis Prostate cancer (HCC) Malignant neoplasm of prostate [facility] Diagnosis Hypercalcemia- Primary Age-related osteoporosis without current pathological fracture Senile osteoporosis [facility] Diagnosis Age-related osteoporosis without current pathological fracture- Primary Senile osteoporosis [facility] Diagnosis Prostate cancer (HCC)- Primary Malignant neoplasm of prostate [facility] Diagnosis Chronic right hip pain- Primary Pain in joint, pelvic region and thigh S/P hip hemiarthroplasty Hip joint replacement by other means [facility] Diagnosis Prostate cancer (HCC)- Primary Malignant neoplasm of prostate [facility] Liver disease Unspecified disorder of liver [facility] Diagnosis Alcoholic liver disease (HCC)- Primary Alcoholic liver damage, unspecified [facility] Diagnosis Liver disease- Primary Unspecified disorder of liver [facility] Diagnosis Liver disease Unspecified disorder of liver [facility]* Diagnosis Prostate cancer (HCC)- Primary Malignant neoplasm of prostate 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) Malignant neoplasm of prostate [facility]* Diagnosis Prostate cancer (HCC)- Primary Malignant neoplasm of prostate [facility]* Diagnosis Liver disease- Primary Unspecified disorder of liver Alcoholic liver disease (HCC) Alcoholic liver damage, unspecified Cirrhosis of liver with ascites, unspecified hepatic cirrhosis type (HCC) (HCC) [facility] Diagnosis Liver disease- Primary Unspecified disorder of liver [facility] Diagnosis Liver disease Unspecified disorder of liver [facility]* Diagnosis Prostate cancer (HCC)- Primary Malignant neoplasm of prostate 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) Malignant neoplasm of prostate [facility]* Diagnosis Prostate cancer (HCC)- Primary Malignant neoplasm of prostate [facility]* Diagnosis Right inguinal hernia- Primary Inguinal hernia without mention of obstruction or gangrene, unilateral or unspecified, (not specified as recurrent) [facility]* Diagnosis Preoperative examination- Primary Preoperative examination, unspecified Non-recurrent unilateral inguinal hernia without obstruction or gangrene Abnormal results of liver function studies Nonspecific abnormal results of liver function study Abnormal coagulation profile documented in this encounter [facility] note* Diagnosis Prostate cancer (HCC)- Primary Malignant neoplasm of prostate [facility] Diagnosis Moderate recurrent major depression (HCC)- Primary Major depressive disorder, recurrent episode, moderate Chronic respiratory failure with hypoxia (HCC) Chronic respiratory failure Chronic diastolic CHF (congestive heart failure) (HCC) Chronic diastolic heart failure Paroxysmal atrial fibrillation (HCC) Atrial fibrillation Post traumatic seizures (HCC) Post traumatic seizures Chronic renal failure, stage 2 (mild) Preoperative examination Preoperative examination, unspecified Non-recurrent unilateral inguinal hernia without obstruction or gangrene Brain tumor (HCC) Neoplasm of unspecified nature of brain Parkinson's disease, unspecified whether dyskinesia present, unspecified whether manifestations fluctuate (HCC) Atrial fibrillation status post cardioversion (HCC) Atrial fibrillation History of ST elevation myocardial infarction (STEMI) Old myocardial infarction Essential hypertension, benign Hypertensive heart disease with chronic diastolic congestive heart failure (HCC) Type 2 diabetes mellitus with hypercholesterolemia (HCC) ALBINO (obstructive sleep apnea) Obstructive sleep apnea (adult) (pediatric) Prostate cancer (HCC) Malignant neoplasm of prostate On continuous oral anticoagulation Long-term (current) use of anticoagulants Preop exam for internal medicine Other specified pre-operative examination HFrEF (heart failure with reduced ejection fraction) (HCC) Heart failure, unspecified Pulmonary hypertension (HCC) Other chronic pulmonary heart diseases Preoperative examination Preoperative examination, unspecified Non-recurrent unilateral inguinal hernia without obstruction or gangrene [facility] Diagnosis Primary pulmonary hypertension (HCC)- Primary Primary pulmonary hypertension Preoperative examination Preoperative examination, unspecified Non-recurrent unilateral inguinal hernia without obstruction or gangrene [facility] Diagnosis Liver disease Unspecified disorder of liver Preoperative examination Preoperative examination, unspecified Non-recurrent unilateral inguinal hernia without obstruction or gangrene [facility] Diagnosis Liver disease- Primary Unspecified disorder of liver Preoperative examination Preoperative examination, unspecified Non-recurrent unilateral inguinal hernia without obstruction or gangrene [facility]. Jacobs [facility] April 10, 2023 5:01pm Note Date/Time April 10, 2023 4:24p [facility] Medical Records Department [address] [place] [id number] H&P Exam - Hospitalist 04/10/23 1622 MR#: [id number] Acct: [id number] Name: STEPH BAUMANN Rep #:[id number] : 1950 72 From: Leonie Jacobs MD PCP: Dr. Manuel Beebe MD Status:MARY Fuentes MARY Location: [facility] [id number] HPI - General General Date of Admission: [...] sepsis caretakers were apparently out of town. [facility] Medical History Acute and chronic respiratory failure with hypoxia Acute heart failure with reduced ejection fraction and diastolic dysfunction Ambulates with cane Anticoagulant long-term use Ascites Asthma Atherosclerosis of coronary artery of [place] heart without angina pectoris Atrial fibrillation and [...] never substance use type: does not use regla/samaritan: None seatbelt use: always ROS ROS Narrative [...] 85.5 H, Lymph % (Auto) 5.4 L, Story % (Auto) 6.7, Eos % (Auto) 1.4, [...] Clarity Clear, Urine pH 6.0, Ur Specific [place] 1.015, Urine Protein Negative, Urine Glucose (UA) [...] 13:54 EDT Reading Location ID and State: [facility] / [place] , Service support , Chest X-Ray 04/10/23 [...] ? Requested for PT OT eval and health social work professor to assist with discharge planning 2. Nonischemic [...] 18 minutes. Charges/Coding Visit Charges Inpatient E&M: 62144 Init Hosp L3 Procedures Hospitalists Procedures: 24735 Advncd Care Plan 30 Min 04/10/23 1701 <Electronically signed by Leonie Jacobs MD> Cosigner Signature (if applicable): CC: Dr. Leonie Jacobs MD; Dr. Manuel Beebe MD~ Signed [facility] Work Phone: History and physical note Author Maximo Addison [facility] June 21, 2023 5:38pm Note Date/Time June 21, 2023 5: 24pm [facility] Medical Records Department [address] [place] [address] H&P Exam - Hospitalist 06/21/23 1715 MR#: [id number] Acct: [id number] Name: STEPH BAUMANN Rep #:[id number] : 1950 73 From: Maximo sung MD PCP: Dr. Manuel Beebe MD Status:RE G ER Location: ED HPI - General General Date of Admission: 06/21/23 HPI Narrative STEPH BAUMANN, is a 73 M who presents from the senior living with altered mental status as well as [...] he has been doing well at the senior living but it has transitioned into a long-term [...] the ER were unremarkable as was UA. [facility] Medical History Acute and chronic respiratory failure with hypoxia Acute heart failure with reduced ejection fraction and diastolic dysfunction Adult failure to thrive Ambulates with cane Anticoagulant long-term use Ascites Asthma Atherosclerosis of coronary artery of iliamna heart without angina pectoris Atrial fibrillation and [...] mL) subcutaneous pen 37 unit subcut QHS WRLIFRKS08/24/18 [History Last Taken 04/12/23] bicalutamide 50 mg [...] bisacodyl 10 mg rectal suppository 10 mg WV DAILY PRN constipation 06/21/23 [History Last Taken [...] never substance use type: does not use regla/samaritan: None seatbelt use: always ROS Review of [...] Clarity Clear, Urine pH 6.0, Ur Specific [place] 1.020, Urine Protein 30 H, Urine Glucose [...] ? He has completed radiation treatments DVT: Юлияjoesosa I had a 20-minute discussion with the POA on advance care planning options including hospice. She reiterated that he would like to be full code. Charges/Coding Visit Charges Inpatient E&M: 62356 Init Hosp L2 Procedures Hospitalists Procedures: 53571 Advncd Care Plan 30 Min 06/21/23 1738 <Electronically signed by Maximo Addison MD> Cosigner Signature (if applicable): CC: Dr. Manuel Beebe MD; Dr. Maximo Addison MD~ Signed [facility] Work Phone: [facility] Work Phone[facility] Discharge instructions Additional Instructions Please continue all of your normal medications as previously directed and return to the ER should you have any further [facility] Work Phone: Reason for referral (narrative)* Diagnostic Procedure Only (Routine) - Authorized Specialty Diagnoses / Procedures Referred By Contac t Referred To Contact US IMAGING Diagnoses Liver disease Procedures US ABD RT UPPER QUADRANT US ABDOMINAL REAL TIME W/IMAGE LIMITED Deborah [address] [place] [address] Us Imaging Referral ID Status Reason Start Date Expiration Date Visits Requested Visits Authorized [id number] Authorized Auto-Generat ed Referral 10/02/2023 4 4 [facility] for referral (narrative)* Diagnostic Procedure Only (Routine) - Authorized Specialty Diagnoses / Procedures Referred By Contac t Referred To Contact US IMAGING Diagnoses Liver disease Procedures US ABD RT UPPER QUADRANT US ABDOMINAL REAL TIME W/IMAGE LIMITED [facility] Main [address] [place] [address] Us Imaging Referral ID Status Reason Start Date Expiration Date Visits Requested Visits Authorized [id number] Authorized Auto-Generat ed Referral 10/02/2023 4 4 T [facility] for referral (narrative)* Diagnostic Procedure Only (Routine) - Authorized Specialty Diagnoses / Procedures Referred By Contac t Referred To Contact US IMAGING Diagnoses Liver disease Procedures US ABD RIGHT UPPER QUADRANT US ABDOMINAL REAL TIME W/IMAGE LIMITED Merlin Loredo MD [address] [place] [address] Us Imaging Referral ID Status Reason Start Date Expiration Date Visits Requested Visits Authorized [id number] Authorized Auto-Generat ed Referral 09/12/2023 04/07/2024 1 1 [facility] for referral (narrative)* Diagnostic Procedure Only (Routine) - Authorized Specialty Diagnoses / Procedures Referred By Contac t Referred To Contact US IMAGING Diagnoses Liver disease Procedures US ABD RT UPPER QUADRANT US ABDOMINAL REAL TIME W/IMAGE LIMITED Deborah [address] [place] [id number] Us Imaging Referral ID Status Reason Start Date Expiration Date Visits Requested Visits Authorized [id number] Authorized Auto-Generat ed Referral 10/02/2023 4 4 [facility] for referral (narrative)* Outpatient Procedure (Routine) - Pending Review Specialty Diagnoses / Procedures Referred By Contac t Referred To Contact [facility] Diagnoses Liver disease Procedures DDI VIBRATION CONTROLLED TRANSIENT ELASTOGRAPHY (VCTE) LIVER ELASTOGRAPHY W/O IMAG W/I&R Merlin Loredo MD [address] [place] [address] [facility] [address] [place] [address] Referral ID Status Reason Start Date Expiration Date Visits Requested Visits Authorized [id number] Pending Review Auto-Generat ed Referral 08/14/2024 03/14/2025 1 1 * Diagnostic Procedure Only (Routine) - Pending Review Specialty Diagnoses / Procedures Referred By Contac t Referred To Contact US IMAGING Diagnoses Liver disease Procedures US ABD RIGHT UPPER QUADRANT US ABDOMINAL REAL TIME W/IMAGE LIMITED Merlin Loredo MD [address] [place] [phone] Us Imaging [place] [address] Referral ID Status Reason Start Date Expiration Date Visits Requested Visits Authorized [id number] Pending Review Auto-Generat ed Referral 08/14/2024 04/13/2025 1 1 * Outpatient Procedure (Routine) - Pending Review Specialty Diagnoses / Procedures Referred By Contac t Referred To Contact [facility] Diagnoses Liver disease Procedures EGD - THERAPEUTIC, EUS, OR TUBE INTERVENTIONS EGD BAND LIGATION ESOPHGEAL/GASTRIC VARICES Merlin Loredo MD [address] [place] [address] [facility] [address] [place] [address] Referral ID Status Reason Start Date Expiration Date Visits Requested Visits Authorized [id number] Pending Review Auto-Generat ed Referral 08/14/2024 03/14/2025 1 1 [facility] for referral (narrative)* Diagnostic Procedure Only (Routine) - Closed Specialty Diagnoses / Procedures Referred By Contac t Referred To Contact US IMAGING Diagnoses Liver disease Other cirrhosis of liver (HCC) Procedures US ABD RIGHT UPPER QUADRANT US ABDOMINAL REAL TIME W/IMAGE LIMITED Merlin Loredo MD [address] [place] [address] [place] [address] Referral ID Status Reason Start Date Expiration Date V isits Requested Visits Authorized [id number] Closed Auto-Generate d Referral 09/16/2023 10/12/2024 1 1 [facility] for referral (narrative)* Diagnostic Procedure Only (Routine) - Closed Specialty Diagnoses / Procedures Referred By Contac t Referred To Contact XR IMAGING Diagnoses Right hip pain Prostate cancer (HCC) Procedures XR HIP GENERAL 3V PELV/AP/LAT RIGHT RADEX HIP UNILATERAL WITH PELVIS 2-3 VIEWS Jonnathan Kothari DO [address] [place] [address] [place] [address] Referral ID Status Reason Start Date Expiration Date V isits Requested Visits Authorized [id number] Closed Auto-Generate d Referral 03/21/2024 04/20/2025 1 1 [facility] for referral (narrative)* Outpatient Procedure (Routine) - Closed Specialty Diagnoses / Procedures Referred By Contac t Referred To Contact [facility] Diagnoses Liver disease Procedures EGD - THERAPEUTIC, EUS, OR TUBE INTERVENTIONS EGD BAND LIGATION ESOPHGEAL/GASTRIC VARICES Merlin Loredo MD [address] [place] [address] [place] [phone] Referral ID Status Reason Start Date Expiration Date V isits Requested Visits Authorized [id number] Closed Auto-Generate d Referral 08/14/2024 03/14/2025 1 1 [facility] for referral (narrative)* Outpatient Procedure (Routine) - New Request Specialty Diagnoses / Procedures Referred By Contac t Referred To Contact [facility] Diagnoses Alcoholic liver disease (HCC) Procedures DDI VIBRATION CONTROLLED TRANSIENT ELASTOGRAPHY (VCTE) LIVER ELASTOGRAPHY W/O IMAG W/I&R Parisa Miller APRN.CNP [address] [place] [phone] [place] [address] Referral ID Status Reason Start Date Expiration Date Visits Requested Visits Authorized [id number] New Request Auto-Generat ed Referral 4 08/28/2025 1 1 [facility] for referral (narrative)* Diagnostic Procedure Only (Routine) - Authorized Specialty Diagnoses / Procedures Referred By Contac t Referred To Contact US IMAGING Diagnoses Liver disease Procedures US ABD RIGHT UPPER QUADRANT US ABDOMINAL REAL TIME W/IMAGE LIMITED Merlin Loredo MD [address] [place] [address] Us Imaging [facility] Referral ID Status Reason Start Date Expiration Date Visits Requested Visits Authorized [id number] Authorized Auto-Generat ed Referral 4 09/27/2025 1 1 [facility] for referral (narrative)* Diagnostic Procedure Only (Routine) - Closed Specialty Diagnoses / Procedures Referred By Contac t Referred To Contact US IMAGING Diagnoses Liver disease Procedures US ABD RIGHT UPPER QUADRANT US ABDOMINAL REAL TIME W/IMAGE LIMITED Merlin Loredo MD [address] [place] [address] Us Imaging [facility] Referral ID Status Reason Start Date Expiration Date V isits Requested Visits Authorized [id number] Closed Auto-Generate d Referral 08/14/2024 04/13/2025 1 1 [facility] for referral (narrative)No reason for referral information [facility]WK[facility] Work Phone: Reason for visit Narrative* Diagnostic Procedure Only (Routine) - Authorized Specialty Diagnoses / Procedures Referred By Contac t Referred To Contact US IMAGING Diagnoses Liver disease Procedures US ABD RT UPPER QUADRANT US ABDOMINAL REAL TIME W/IMAGE LIMITED [facility] [address] [place] [address] Us Imaging Referral ID Status Reason Start Date Expiration Date Visits Requested Visits Authorized [id number] Authorized Auto-Generat ed Referral 10/02/2023 4 4 [facility] for visit Narrative* Diagnostic Procedure Only (Routine) - Closed Specialty Diagnoses / Procedures Referred By Contac t Referred To Contact US IMAGING Diagnoses Liver disease Other cirrhosis of liver (HCC) Procedures US ABD RIGHT UPPER QUADRANT US ABDOMINAL REAL TIME W/IMAGE LIMITED Merlin Loredo MD [address] [place] [phone] Us Imaging [place] [address] Referral ID Status Reason Start Date Expiration Date V isits Requested Visits Authorized [id number] Closed Auto-Generate d Referral 09/16/2023 10/12/2024 1 1 [facility] for visit Narrative* Diagnostic Procedure Only (Routine) - Closed Specialty Diagnoses / Procedures Referred By Contac t Referred To Contact XR IMAGING Diagnoses Right hip pain Prostate cancer (HCC) Procedures XR HIP GENERAL 3V PELV/AP/LAT RIGHT RADEX HIP UNILATERAL WITH PELVIS 2-3 VIEWS Jonnathan Kothari, DO [address] [place] [address] Xr Imaging [place] [address] Referral ID Status Reason Start Date Expiration Date V isits Requested Visits Authorized [id number] Closed Auto-Generate d Referral 03/21/2024 04/20/2025 1 1 [facility] for visit Narrative* Outpatient Procedure (Routine) - Closed Specialty Diagnoses / Procedures Referred By Jaylynac t Referred To Contact [facility] Diagnoses Liver disease Procedures EGD - THERAPEUTIC, EUS, OR TUBE INTERVENTIONS EGD BAND LIGATION ESOPHGEAL/GASTRIC VARICES Merlin Loredo MD [address] [place] [address] [address] [address] [address] Referral ID Status Reason Start Date Expiration Date V isits Requested Visits Authorized [id number] Closed Auto-Generate d Referral 08/14/2024 03/14/2025 1 1 [facility] for visit Narrative* Outpatient Procedure (Routine) - Closed Specialty Diagnoses / Procedures Referred By Jaylynac t Referred To Contact [facility] [place] Diagnoses Liver disease Procedures DDI VIBRATION CONTROLLED TRANSIENT ELASTOGRAPHY (VCTE) LIVER ELASTOGRAPHY W/O IMAG W/I&R Merlin Loredo MD [address] [place] [address] [address] Referral ID Status Reason Start Date Expiration Date V isits Requested Visits Authorized [id number] Closed Auto-Generate d Referral 08/14/2024 03/14/2025 1 1 [facility] for visit Narrative* Diagnostic Procedure Only (Routine) - Closed Specialty Diagnoses / Procedures Referred By Contac t Referred To Contact US IMAGING Diagnoses Liver disease Procedures US ABD RIGHT UPPER QUADRANT US ABDOMINAL REAL TIME W/IMAGE LIMITED Merlin Loredo MD [address] [place] [address] Us Imaging [facility] Referral ID Status Reason Start Date Expiration Date V isits Requested Visits Authorized [id number] Closed Auto-Generate d Referral 08/14/2024 04/13/2025 1 1 [facility] for visit Narrative* Diagnostic Procedure Only (Routine) - Closed Specialty Diagnoses / Procedures Referred By Contac t Referred To Contact US IMAGING Diagnoses Liver disease Procedures US ABD RIGHT UPPER QUADRANT US ABDOMINAL REAL TIME W/IMAGE LIMITED Merlin Loredo MD [address] [place] [id number] Phone: tel: fax: US IMAGING [place] [address] Referral ID Status Reason Start Date Expiration Date V isits Requested Visits Authorized [id number] Closed Auto-Generate d Referral 08/28/2024 09/27/2025 1 1 [facility] for visit Narrative* [place] Prior Authorization (Routine) - Closed Specialty Diagnoses / Procedures Referred By Suyapa t Referred To Contact Diagnoses Prostate cancer (HCC) Procedures LEUPROLIDE ACETATE SUSPNSION Jonnathan Kothari DO [address] [place] [address] Phone: tel: fax: Hematology/Oncology [address] [place] [address] Phone: tel: fax: Referral ID Status Reason Start Date Expiration Date Visits Re quested Visits Authorized [id number] Closed 09/28/2023 11/06/2024 99 99 [facility] for visit Narrative* Consult, Test, Treat (Routine) - Closed Specialty Diagnoses / Procedures Referred By Suyapa t Referred To Contact Diagnoses Preoperative examination Non-recurrent unilateral inguinal hernia without obstruction or gangrene Procedures OFFICE/OUTPATIENT [facility] 60 MINUTES Hung Ridley, IRONING WORKER.[facility] [address] [place], [place] [id number] Phone: tel: fax: Referral ID Status Reason Start Date Expiration Date V isits Requested Visits Authorized [id number] Closed PCP Requested Referral 05/17/2025 05/17/2026 1 1 [facility] for visit Narrative* Diagnostic Procedure Only (Routine) - Closed Specialty Diagnoses / Procedures Referred By Suyapa t Referred To Contact US IMAGING Diagnoses Liver disease Procedures US ABD RIGHT UPPER QUADRANT US ABDOMINAL REAL TIME W/IMAGE LIMITED Merlin Loredo MD [address] [place] [id number] Phone: tel: fax: [place] [address] Referral ID Status Reason Start Date Expiration Date V isits Requested Visits Authorized [id number] Closed Auto-Generate d Referral 07/16/2025 03/15/2026 1 1 [facility] Chief Complaint and Reason for Visit Chief Complaint C[address] Hernia [facility] 11/23 CONSULT PROSTATE CANCER Remote ALERT for [place] space oars, gold markers EVAL DISEASE, HIGH RISK PROSTATE Program out of MRI mode Programming for MRI 9 m fu MILL PLATFORM SUPERVISOR-D f/u @ 9AM annual in-clinic f/u Sees EXCAVATING MACHINE OPERATOR@ 9:15 OTV OTV LEUNG FALL/RT HIP PAIN Reason for Visit Cirrhosis [id number] 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 [id number] Chief Complaint Remote ALERT for [place] space oars, gold markers EVAL DISEASE, HIGH RISK PROSTATE Program out of MRI mode Programming for MRI 9 m fu MILL PLATFORM SUPERVISOR-D f/u @ 9AM annual in-clinic f/u Sees EXCAVATING MACHINE OPERATOR@ 9:15 OTV OTV FALL/RT HIP PAIN RT [...] 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 [id number] Asthma Atrial fibrillation Benign prostate hyperplasia Cirrhosis of liver Closed right hip fracture Debility Diabetes mellitus Gastroesophageal reflux disease FARIAS (nonalcoholic steatohepatitis) Prostate cancer Seizure disorder Stroke Chronic kidney disease, stage 3a Chronic systolic congestive heart failure Prostate cancer [id number] Chief Complaint Remote ALERT for [place] space oars, gold markers EVAL DISEASE, HIGH RISK PROSTATE Program out of MRI mode Programming for MRI 9 m fu MILL PLATFORM SUPERVISOR-D f/u @ 9AM annual in-clinic f/u Sees EXCAVATING MACHINE OPERATOR@ 9:15 OTV OTV FALL/RT HIP PAIN RT [...] 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 [id number] Asthma Atrial fibrillation Benign prostate hyperplasia Cirrhosis of liver Closed right hip fracture Debility Diabetes mellitus Gastroesophageal reflux disease FARIAS (nonalcoholic steatohepatitis) Prostate cancer Seizure disorder Stroke Chronic kidney disease, stage 3a Chronic systolic congestive heart failure Prostate cancer [id number] Chief Complaint space oars, royer palacios EVAL DISEASE, HIGH RISK PROSTATE Program out of MRI mode Programming for MRI 9 m fu MILL PLATFORM SUPERVISOR-D f/u @ 9AM annual in-clinic f/u Sees EXCAVATING MACHINE OPERATOR@ 9:15 OTV OTV FALL/RT HIP PAIN RT [...] 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 [id number] Atrial fibrillation Benign prostate hyperplasia Cirrhosis of liver Debility Diabetes mellitus Gastroesophageal reflux disease FARIAS (nonalcoholic steatohepatitis) Prostate cancer Seizure disorder Stroke Chronic kidney disease, stage 3a Asthma Chronic systolic congestive heart failure Closed right hip fracture Prostate cancer [id number] Acute heart failure with reduced ejection fraction and diastolic dysfunction Chest pain Acute and chronic respiratory failure with hypoxia Chief Complaint space oars, royer palacios EVXIN DISEASE, HIGH RISK PROSTATE Program out of MRI mode Programming for MRI 9 m fu MILL PLATFORM SUPERVISOR-D f/u @ 9AM annual in-clinic f/u Sees EXCAVATING MACHINE OPERATOR@ 9:15 OTV OTV FALL/RT HIP PAIN RT MANN ARTHOPLASTI OTV OTV otv otv 2 UNITS PRBC LEUNG LEUNG CHEST PAIN, HYPOXIA CHEST PAIN, HYPOXIA CHEST PAIN, HYPOXIA CHEST PAIN, HYPOXIA 3 mos remote MILL PLATFORM SUPERVISOR-D f/u SOB Reason for Visit Biventricular 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 [id number] Atrial fibrillation Benign prostate hyperplasia Cirrhosis of liver Debility Diabetes mellitus Gastroesophageal reflux disease FARIAS (nonalcoholic steatohepatitis) Prostate cancer Seizure disorder Stroke Chronic kidney disease, stage 3a Asthma Chronic systolic congestive heart failure Closed right hip fracture Prostate cancer [id number] Acute heart failure with reduced ejection fraction [...] HYPOXIA CHEST PAIN, HYPOXIA 3 mos remote MILL PLATFORM SUPERVISOR-D f/u SOB DROP FOOT/ CANCER CARE REFERRAL EORDER Reason for Visit [id number] Atrial fibrillation Benign prostate hyperplasia Cirrhosis of liver Debility Diabetes mellitus Gastroesophageal reflux disease FARIAS (nonalcoholic steatohepatitis) Prostate cancer Seizure disorder Stroke Chronic kidney disease, stage 3a Asthma Chronic systolic congestive heart failure Closed right hip fracture Prostate cancer [id number] Chest pain Biventricular ICD (implantable cardioverter-defibrillator) in [...] HYPOXIA CHEST PAIN, HYPOXIA 3 mos remote MILL PLATFORM SUPERVISOR-D f/u SOB DROP FOOT/ CANCER CARE REFERRAL EORDER altered loc Reason for Visit Atrial fibrillation Benign prostate hyperplasia Cirrhosis of liver Debility Diabetes mellitus Gastroesophageal reflux disease FARIAS (nonalcoholic steatohepatitis) Prostate cancer Seizure disorder Stroke Chronic kidney disease, stage 3a Asthma Chronic systolic congestive heart failure Closed right hip fracture Prostate cancer [id number] Chest pain Biventricular ICD (implantable cardioverter-defibrillator) in [...] HYPOXIA CHEST PAIN, HYPOXIA 3 mos remote MILL PLATFORM SUPERVISOR-D f/u SOB DROP FOOT/ CANCER CARE REFERRAL EORDER altered loc LEFT LEG WEAKNESS/CEREBROVASCULAR DISEASE 3 month f/u Reason for Visit Atrial fibrillation Benign prostate hyperplasia Cirrhosis of liver Debility Diabetes mellitus Gastroesophageal reflux disease FARIAS (nonalcoholic steatohepatitis) Prostate cancer Seizure disorder Stroke Chronic kidney disease, stage 3a Asthma Chronic systolic congestive heart failure Closed right hip fracture [id number] Chest pain Biventricular ICD (implantable cardioverter-defibrillator) in place Chronic combined systolic and diastolic CHF (congestive heart failure) Longstanding persistent atrial fibrillation Nonischemic cardiomyopathy Right bundle branch 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 Abnormality of gait and mobility History of CVA (cerebrovascular accident) Polyneuropathy [id number] Chief Complaint CHEST PAIN,HYPOXIA CHEST PAIN, HYPOXIA CHEST PAIN, HYPOXIA CHEST PAIN, HYPOXIA 3 mos remote MILL PLATFORM SUPERVISOR-D f/u SOB DROP FOOT/ CANCER CARE REFERRAL [...] mobility History of CVA (cerebrovascular accident) Polyneuropathy [id number] Abnormality of gait and mobility Absent pedal pulses History of CVA (cerebrovascular accident) Polyneuropathy Chief Complaint LEFT LEG WEAKNESS/CE REBROVASCULAR DISEASE 3 month f/u 2 M FU EORDER BILAT LOWER EXT ABDNORMAL GAIT 6 m fu/ MARIBELL @ 11 device check/ MMM @ 11:30 psa Reason for Visit [id number] Abnormality of gait and mobility Absent pedal [...] MMM @ 11:30 psa 3 mos remote MILL PLATFORM SUPERVISOR-D f/u HX RIGHT MCA CVA Reason for [...] block Chief Complaint psa 3 mos remote MILL PLATFORM SUPERVISOR-D f/u HX RIGHT MCA CVA 4 M FU THYROID NODULE 6 month f/u prostate Reason for Visit Biventricular ICD (i mplantable cardioverter-defibrillator) in place Chronic combined systolic and diastolic CHF (congestive heart failure) Longstanding persistent atrial fibrillation Nonischemic cardiomyopathy Right bundle branch 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 Parkinson's disease [id number] Abnormality of gait and mobility Absent pedal pulses History of CVA (cerebrovascular accident) Polyneuropathy [id number] Chief Complaint 4 M FU THYROID NODULE 6 month f/u prostate Rmote ALERT for VT PSA 3 mos MILL PLATFORM SUPERVISOR-D f/u ADULT FAILURE TO THRIVE ADULT FAILURE TO THRIVE Reason for Visit Parkinson's disease [id number] Abnormality of gait and mobility Absent pedal pulses History of CVA (cerebrovascular accident) Polyneuropathy [id number] Biventricular ICD (implantable cardioverter-defibrillator) in place Longstanding [...] Rmote ALERT for [place] PSA 3 mos MILL PLATFORM SUPERVISOR-D f/u ADULT FAILURE TO THRIVE ADULT FAILURE TO THRIVE ADULT FAILURE TO THRIVE ADULT FAILURE TO THRIVE Reason for Visit Parkinson's disease [id number] Abnormality of gait and mobility Absent pedal pulses History of CVA (cerebrovascular accident) Polyneuropathy [id number] Biventricular ICD (implantable cardioverter-defibrillator) in place Longstanding [...] Rmote ALERT for [place] PSA 3 mos MILL PLATFORM SUPERVISOR-D f/u ADULT FAILURE TO THRIVE ADULT FAILURE TO THRIVE ADULT FAILURE TO THRIVE ADULT FAILURE TO THRIVE VALENCIA Reason for Visit Parkinson's disease [id number] Abnormality of gait and mobility Absent pedal pulses History of CVA (cerebrovascular accident) Polyneuropathy [id number] Biventricular ICD (implantable cardioverter-defibrillator) in place Longstanding [...] Rmote ALERT for [place] PSA 3 mos MILL PLATFORM SUPERVISOR-D f/u ADULT FAILURE TO THRIVE ADULT FAILURE TO THRIVE ADULT FAILURE TO THRIVE ADULT FAILURE TO THRIVE VALENCIA VALENCIA VALENCIA VALENCIA VALENCIA SYPOXIA, VALENCIA Reason for Visit [id number] Biventricular ICD (implantable cardioverter-defibrillator) in place Longstanding [...] Rmote ALERT for [place] PSA 3 mos MILL PLATFORM SUPERVISOR-D f/u ADULT FAILURE TO THRIVE ADULT FAILURE TO THRIVE ADULT FAILURE TO THRIVE ADULT FAILURE TO THRIVE VALENCIA VALENCIA VALENCIA VALENCIA VALENCIA HYPOXIA, VALENCIA SYPOXIA, VALENCIA HYPOXIA, VALENCIA Reason for Visit [id number] Biventricular ICD (implantable cardioverter-defibrillator) in place Longstanding [...] Rmote ALERT for [place] PSA 3 mos MILL PLATFORM SUPERVISOR-D f/u ADULT FAILURE TO THRIVE ADULT FAILURE TO THRIVE ADULT FAILURE TO THRIVE ADULT FAILURE TO THRIVE VALENCIA VALENCIA VALENCIA VALENCIA VALENCIA SKILLED NURSING LABWORK HYPOXIA, VALENCIA SYPOXIA, VALENCIA HYPOXIA, VALENCIA SKILLED NURSING LABWORK malignant neoplasm of prostate Reason for [...] VALENCIA VALENCIA VALENCIA VALENCIA ADMISSION EXAM VALENCIA SKILLED NURSING LABWORK ADMISISON EXAM HYPOXIA, VALENCIA FOLLOW UP SYPOXIA, VALENCIA HYPOXIA, VALENCIA SKILLED NURSING LABWORK LAB WORK malignant neoplasm of prostate [...] VALENCIA VALENCIA VALENCIA VALENCIA ADMISSION EXAM VALENCIA SKILLED NURSING LABWORK ADMISISON EXAM HYPOXIA, VALENCIA FOLLOW UP SYPOXIA, VALENCIA HYPOXIA, VALENCIA SKILLED NURSING LABWORK LAB WORK malignant neoplasm of prostate LAB WORK LAB WORK LABWORK LABWORK LABWORK 6 M FU SKILLED NURSING LAB WORK VALENCIA altered mental status VALENCIA [...] THRIVE ADULT FAILURE TO THRIVE VALENCIA VALENCIA VALENCAI VALENCIA ADMISSION EXAM VALENCIA SKILLED NURSING LABWORK ADMISISON EXAM HYPOXIA, VALENCIA FOLLOW UP SYPOXIA, VALENCIA HYPOXIA, VALENCIA SKILLED NURSING LABWORK LAB WORK malignant neoplasm of prostate LAB WORK LAB WORK LABWORK LABWORK LABWORK 6 M FU SKILLED NURSING LAB WORK SKILLED NURSING LABWORK VALENCIA altered mental status VALENCIA VALENCIA VALENCIA VALENCIA VALENCIA VALENCIA VALENCIA Reason for Visit Adult failure to thr fletcher Generalized weakness Transient hypotension VAELNCIA (acute kidney injury) Adult failure to thrive [...] VALENCIA VALENCIA VALENCIA VALENCIA ADMISSION EXAM VALENCIA SKILLED NURSING LABWORK ADMISISON EXAM HYPOXIA, VALENCIA FOLLOW UP SYPOXIA, VALENCIA HYPOXIA, VALENCIA SKILLED NURSING LABWORK LAB WORK malignant neoplasm of prostate LAB WORK LAB WORK LABWORK LABWORK LABWORK 6 M SKILLED NURSING LAB WORK SKILLED NURSING LABWORK SKILLED NURSING LABWORK VALENCIA altered mental status VALENCIA VALENCIA VALENCIA VALENCIA VALENCIA VALENCIA VALENCIA LABWORK 6 month f/u formerly [facility] [place] SKILLED NURSING LAB WORK Reason for Visit Adult failure [...] VALENCIA (acute kidney injury) Toxic metabolic encephalopathy [id number] Chief Complaint ADULT FAILURE TO THR FLETCHER ADULT FAILURE TO THRIVE ADULT FAILURE TO THRIVE ADULT FAILURE TO THRIVE VALENCIA VALENCIA VALENCIA VALENCIA ADMISSION EXAM VALENCIA SKILLED NURSING LABWORK ADMISISON EXAM HYPOXIA, VALENCIA FOLLOW UP SYPOXIA, VALENCIA HYPOXIA, VALENCIA SKILLED NURSING LABWORK LAB WORK malignant neoplasm of prostate LAB WORK LAB WORK LABWORK LABWORK LABWORK 6 M SKILLED NURSING LAB WORK SKILLED NURSING LABWORK SKILLED NURSING LABWORK VALENCIA altered mental status VALENCIA VALENCIA VALENCIA VALENCIA VALENCIA VALENCIA VALENCIA LABWORK SKILLED NURSING LABWORK 6 month f/u formerly [facility] [place] SKILLED NURSING LAB WORK Reason for Visit Adult failure [...] VALENCIA (acute kidney injury) Toxic metabolic encephalopathy [id number] Chief Complaint ADULT FAILURE TO THR FLETCHER ADULT FAILURE TO THRIVE ADULT FAILURE TO THRIVE ADULT FAILURE TO THRIVE VALENCIA VALNECIA VALENCIA VALENCIA ADMISSION EXAM VALENCIA SKILLED NURSING LABWORK ADMISISON EXAM HYPOXIA, VALENCIA FOLLOW UP SYPOXIA, VALENCIA HYPOXIA, VALENCIA SKILLED NURSING LABWORK LAB WORK malignant neoplasm of prostate LAB WORK LAB WORK LABWORK LABWORK LABWORK 6 M SKILLED NURSING LAB WORK SKILLED NURSING LABWORK SKILLED NURSING LABWORK VALENCIA altered mental status VALENCIA VALENCIA VALENCIA VALENCIA VALENCIA VALENCIA VALENCIA LABWORK SKILLED NURSING LABWORK 6 month f/u prostate SKILLED NURSING LAB WORK SKILLED NURSING LAB WORK Reason for Visit Adult failure [...] VALENCIA (acute kidney injury) Toxic metabolic encephalopathy [id number] Chief Complaint HYPOXIA, VALENCIA FOLLOW UP SYPOXIA, VALENCIA HYPOXIA, VALENCIA SKILLED NURSING LABWORK LAB WORK malignant neoplasm of prostate LAB WORK LAB WORK LABWORK LABWORK LABWORK 6 M FU SKILLED NURSING LAB WORK SKILLED NURSING LABWORK SKILLED NURSING LABWORK VALENCIA altered mental status VALENCIA VALENCIA VALENCIA VALENCIA VALENCIA VALENCIA VALENCIA LABWORK SKILLED NURSING LABWORK 6 month f/u prostate SKILLED NURSING LAB WORK SKILLED NURSING LABWORK SKILLED NURSING LAB WORK SKILLED NURSING LABWORK Reason for Visit Adult failure to [...] VALENCIA (acute kidney injury) Toxic metabolic encephalopathy [id number] Chief Complaint HYPOXIA, VALENCIA HYPOXIA, VALENCIA SKILLED NURSING LABWORK LAB WORK malignant neoplasm of prostate LAB WORK LAB WORK LABWORK LABWORK LABWORK 6 M FU SKILLED NURSING LAB WORK SKILLED NURSING LABWORK SKILLED NURSING LABWORK VALENCIA altered mental status VALENCIA VALENCIA VALENCIA VALENCIA VALENCIA VALENCIA VALENCIA LABWORK SKILLED NURSING LABWORK 6 month f/u prostate SKILLED NURSING LAB WORK SKILLED NURSING LABWORK SKILLED NURSING LAB WORK SKILLED NURSING LABWORK SKILLED NURSING LAB WORK Reason for Visit Adult failure [...] VALENCIA (acute kidney injury) Toxic metabolic encephalopathy [id number] Chief Complaint LAB WORK LAB WORK LABWORK LABWORK LABWORK 6 M FU SKILLED NURSING LAB WORK SKILLED NURSING LABWORK SKILLED NURSING LABWORK VALENCIA altered mental status VALENCIA VALENCIA VALENCIA VALENCIA VALENCIA VALENCIA VALENCIA LABWORK SKILLED NURSING LABWORK 6 month f/u prostate SKILLED NURSING LAB WORK SKILLED NURSING LABWORK SKILLED NURSING LAB WORK SKILLED NURSING LABWORK SKILLED NURSING LAB WORK SKILLED NURSING LABWORK Reason for Visit Atrial fibrillation Cirrhosis Biventricular ICD (implantable cardioverter-defibrillator) in place Chronic combined systolic and diastolic CHF (congestive heart failure) Essential (primary) hypertension Nonischemic cardiomyopathy Acute alteration in mental status Acute dehydration Elevated troponin Hyperbilirubinemia Leukocytosis Nausea & vomiting Right hip pain VALENCIA (acute kidney injury) Toxic metabolic encephalopathy [id number] Chief Complaint VALENCIA VALENCIA LABWORK SKILLED NURSING LABWORK 6 month f/u prostate SKILLED NURSING LAB WORK SKILLED NURSING LABWORK SKILLED NURSING LAB WORK Pacer Check Remote SKILLED NURSING LABWORK SKILLED NURSING LAB WORK SKILLED NURSING LABWORK 1 Y FU 4 M FU LABWORK Reason for Visit Acute alteration in mental status Acute dehydration Elevated troponin Hyperbilirubinemia Leukocytosis Nausea & vomiting Right hip pain VALENCIA (acute kidney injury) Toxic metabolic encephalopathy [id number] Atrial fibrillation Cirrhosis Biventricular ICD (implantable cardioverter-defibrillator) in place Chronic combined systolic and diastolic CHF (congestive heart failure) Essential (primary) hypertension Nonischemic cardiomyopathy Chief Complaint 1 Y FU 4 M FU LABWORK SKILLED NURSING LAB WORK Reason for Visit Atrial fibrillation Cirrhosis Biventricular ICD (implantable cardioverter-defibrillator) in place Chronic combined systolic and diastolic CHF (congestive heart failure) Essential (primary) hypertension Nonischemic cardiomyopathy Chief Complaint 1 Y FU 4 M FU LABWORK SKILLED NURSING LAB WORK Pacer Check Remote LABWORK Reason for Visit Atrial fibrillation Cirrhosis Biventricular ICD (implantable cardioverter-defibrillator) in place Chronic combined systolic and diastolic CHF (congestive heart failure) Essential (primary) hypertension Nonischemic cardiomyopathy Chief Complaint 1 Y FU 4 M FU LABWORK SKILLED NURSING LAB WORK Pacer Check Remote LABWORK LABWORK Reason for Visit Atrial fibrillation Cirrhosis Biventricular ICD (implantable cardioverter-defibrillator) in place Chronic combined systolic and diastolic CHF (congestive heart failure) Essential (primary) hypertension Nonischemic cardiomyopathy Chief Complaint 1 Y FU 4 M FU LABWORK SKILLED NURSING LAB WORK Pacer Check Remote LABWORK LABWORK LABWORK Reason for Visit Atrial fibrillation Cirrhosis Biventricular ICD (implantable cardioverter-defibrillator) in place Chronic combined systolic and diastolic CHF (congestive heart failure) Essential (primary) hypertension Nonischemic cardiomyopathy Chief Complaint 1 Y FU 4 M FU LABWORK SKILLED NURSING LAB WORK Pacer Check Remote LABWORK LABWORK LABWORK SKILLED NURSING LAB WORK Reason for Visit Atrial fibrillation Cirrhosis Biventricular ICD (implantable cardioverter-defibrillator) in place Chronic combined systolic and diastolic CHF (congestive heart failure) Essential (primary) hypertension Nonischemic cardiomyopathy Chief Complaint Admit Date SKILLED NURSING LAB WORK October 22 5:00am SKILLED NURSING LAB WORK October 26 4:00am LABWORK November [...] December 12, 2024 11:10am Essential (primary) hypertension Februar 2024 11:10am Nonischemic cardiomyopathy December 12, 2024 11:10am [...] FOLLOW UP January 24, 2025 8:2 1am SKILLED NURSING LAB WORK February 15, 2025 6 :30am Pacer Check Remote March 13, 2025 5:01am Chief Complaint Admit Date Pacer Check Remote December 12, 2024 5 :01am 9 M FU December 12, 2024 1 1:10am LABWORK December 21, 2024 5:00am LABWORK January 18, 2025 5:0 0am FOLLOW UP January 24, 2025 8:2 1am SKILLED NURSING LAB WORK February 15, 2025 6 :30am Pacer Check Remote March 13, 2025 5:01am LABWORK March 15, 2025 6:40am Chief Complaint Admit Date Pacer Check Remote December 12, 2024 5 :01am 9 M FU December 12, 2024 1 1:10am LABWORK December 21, 2024 5:00am LABWORK January 18, 2025 5:0 0am FOLLOW UP January 24, 2025 8:2 1am SKILLED NURSING LAB WORK February 15, 2025 6 :30am SKILLED NURSING LAB WORK March 11, 2025 5:00 am Pacer Check Remote March 13, 2025 5:01am LABWORK March 15, 2025 6:40am Chief Complaint Admit Date SKILLED NURSING LAB WORK March 11, 2025 5:00 am Pacer Check Remote March 13, 2025 5:01am LABWORK March 15, 2025 6:40am LABWORK April 12, 2025 5:00a m SKILLED NURSING LAB WORK April 24, 2025 5: 55am SKILLED NURSING LAB WORK May 14, 2025 5:0 0am SKILLED NURSING LAB WORK May 21, 2025 5: 00am SKILLED NURSING LAB WORK May 30, 2025 5: 00am 6 M FU/ Seeing MMM at 2pm June 18, 025 1:15pm 6 M FU/ Seeing Maribell at 1:30pm June 1:17pm Reason for Visit Admit Date Atrial fibrillation June 18, 2025 1: 17pm Cirrhosis June 18, 2025 1: 17pm 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 June 18, 2025 1:17pm Chronic combined systolic an d diastolic CHF (congestive heart failure) June 18, 2025 1:17pm Essential (primary) hypertension June 18, 2025 1:17pm Nonischemic cardiomyopathy June 18, 2025 1:17pm Reason for Visit Admit Date 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 June 18, 2025 1:15pm Chronic combined systolic an d diastolic CHF (congestive heart failure) June 18, 2025 1:15pm Longstanding persistent atrial fibrillat ion June 18, 2025 1:15pm Nonischemic cardiomyopathy June 18, 2025 1:15pm Atrial fibrillation June 18, 2025 1: 17pm Cirrhosis June 18, 2025 1: 17pm 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 June 18, 2025 1:17pm Chronic combined systolic an d diastolic CHF (congestive heart failure) June 18, 2025 1:17pm Essential (primary) hypertension June 18, 2025 1:17pm Nonischemic cardiomyopathy June 18, 2025 1:17pm Chief Complaint Admit Date SKILLED NURSING LAB WORK March 11, 2025 5:00 am Pacer Check Remote March 13, 2025 5:01am LABWORK March 15, 2025 6:40am LABWORK April 12, 2025 5:00a m SKILLED NURSING LAB WORK April 24, 2025 5: 55am SKILLED NURSING LAB WORK May 14, 2025 5:0 0am SKILLED NURSING LAB WORK May 21, 2025 5: 00am Pacer Check Remote May 24, 2025 5:23 am SKILLED NURSING LAB WORK May 30, 2025 5: 00am Pacer Check Remote June 14, 2025 1:1 2am Pacer Check Remote June 18, 2025 9: 00am 6 M FU/ Seeing MMM at 2pm June 18, 2 025 1:15pm 6 M FU/ Seeing Maribell at 1:30pm June 1:17pm Chief Complaint Admit Date LABWORK April 12, 2025 5:00a m SKILLED NURSING LAB WORK April 24, 2025 5: 55am SKILLED NURSING LAB WORK May 14, 2025 5:0 0am SKILLED NURSING LAB WORK May 21, 2025 5: 00am Pacer Check Remote May 24, 2025 5:23 am SKILLED NURSING LAB WORK May 30, 2025 5: 00am SKILLED NURSING LAB WORK June 11, 2025 4 :00am Pacer Check Remote June 14, 2025 1:1 2am Pacer Check Remote June 18, 2025 9: 00am 6 M FU/ Seeing MMM at 2pm June 18, 2 025 1:15pm 6 M FU/ Seeing Maribell at 1:30pm June 1:17pm 6 M FU July 16, 2025 2:55pm Reason for Visit Admit Date 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 June 18, 2025 1:15pm Chronic combined systolic an d diastolic CHF (congestive heart failure) June 18, 2025 1:15pm Longstanding persistent atrial fibrillat ion June 18, 2025 1:15pm Nonischemic cardiomyopathy June 18, 2025 1:15pm Atrial fibrillation June 18, 2025 1: 17pm Cirrhosis June 18, 2025 1: 17pm 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 June 18, 2025 1:17pm Chronic combined systolic an d diastolic CHF (congestive heart failure) June 18, 2025 1:17pm Essential (primary) hypertension June 18, 2025 1:17pm Nonischemic cardiomyopathy June 18, 2025 1:17pm Muscle hypertonia July 16, 2025 2:55pm Abnormality of gait and [facility] 2:55pm Parkinson's disease July 16, 2025 2:55pm Chief Complaint Admit Date LABWORK April 12, 2025 5:00a m SKILLED NURSING LAB WORK April 24, 2025 5: 55am SKILLED NURSING LAB WORK May 14, 2025 5:0 0am SKILLED NURSING LAB WORK May 21, 2025 5: 00am Pacer Check Remote May 24, 2025 5:23 am SKILLED NURSING LAB WORK May 30, 2025 5: 00am SKILLED NURSING LAB WORK June 11, 2025 4 :00am Pacer Check Remote June 14, 2025 1:1 2am Pacer Check Remote June 18, 2025 9: 00am 6 M FU/ Seeing MMM at 2pm June 18, 2 025 1:15pm 6 M FU/ Seeing Maribell at 1:30pm June 1:17pm LABWORK July 09, 2025 5:00am SKILLED NURSING LAB WORK July 16 5:00am 6 M FU July 16, 2025 2:55pm Family History No Family History Records Found Relationship Condition Age at Onset Recorded Date/T shelly daughter Cardiac disease Unknown Diabetes mellitus Unknown mother Disorder of thyroid Unknown Advance Directives No Advanced Directives Records Found Advance Directive Response Recorded Date/ Time Name of Medical Power of Flight Surgeon BOB FERRARO December 30, 2021 2:54pm Advance Directives Yes May 05 11:01am Living Will Yes February 10, 2022 3:26am Power of Flight Surgeon Yes February 10 3:26am Documents on File Type Date Recorded 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 Advance Directives and Livin g Will 02/11/2022 2:47 PM Advance Directives and Livin g Will 02/11/2022 3:13 PM Power of Flight Surgeon 02/11/2022 3:13 PM Latest Code Status on File Code Status Date Activated Date Inactivated Comments Full Code 02/10/2022 3:42 PM 02/19/2022 12:43 PM Documents on File Type Date Recorded 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 Advance Directives and Livin g Will 02/19/2022 7:10 PM Advance Directives and Livin g Will 02/19/2022 7:11 PM Power of Flight Surgeon 02/19/2022 7:10 PM Advance Directives and Livin g Will 02/11/2022 2:47 PM Advance Directives and Livin g Will 02/11/2022 3:13 PM Power of Flight Surgeon 02/11/2022 3:13 PM Documents on File Type Date Recorded 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 Advance Directives and Livin g Will 02/19/2022 7:10 PM Advance Directives and Livin g Will 02/19/2022 7:11 PM Power of Flight Surgeon 02/19/2022 7:10 PM Advance Directives and Livin g Will 02/11/2022 3:13 PM Power of Flight Surgeon 02/11/2022 3:13 PM Documents on File Type Date Recorded 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 Advance Directives and Livin g Will 02/19/2022 7:10 PM Advance Directives and Livin g Will 02/19/2022 7:11 PM Power of Flight Surgeon 02/19/2022 7:10 PM Advance Directives and Livin g Will 02/11/2022 3:13 PM Power of Flight Surgeon 02/11/2022 3:13 PM Latest Code Status on File Code Status Date Activated Date Inactivated Comments Full Code 02/10/2022 3:42 PM 02/19/2022 12:43 PM Advance Directive Response Recorded Date/ Time Name of Medical Power of Flight Surgeon BOB FERRARO December 30, 2021 2:54pm Name of Medical Power of Flight Surgeon BOB FERRARO February 10, 2022 3:26am Advance Directives Yes May 05 11:01am Living Will Yes February 19, 2022 4:02pm Power of Flight Surgeon Yes February 19 4:02pm Advance Directive Response Recorded Date/ Time Name of Medical Power of Flight Surgeon BOB FERRARO December 30, 2021 2:54pm Name of Medical Power of Flight Surgeon BOB FERRARO February 10, 2022 3:26am Name of Medical Power of Flight Surgeon Bob Ferraro February 19, 2022 4:02pm Name of Medical Power of Flight Surgeon Bob-Signific ant Other April 25, 2022 8:30pm Advance Directives Yes May 05 11:01am Living Will Yes April 25, 2022 8:30pm Power of Flight Surgeon Yes April 25 8:30pm Advance Directive Response Recorded Date/ Time Name of Medical Power of Flight Surgeon BOB FERRARO December 30, 2021 2:54pm Name of Medical Power of Flight Surgeon BOB FERRARO February 10, 2022 3:26am Name of Medical Power of Flight Surgeon Bbo Ferraro February 19, 2022 4:02pm Name of Medical Power of Flight Surgeon Bob-Signific ant Other April 25, 2022 8:30pm Advance Directives Yes May 05 11:01am Living Will No April 30, 2022 2:25am Power of Flight Surgeon No April 30 2:25am Advance Directive Response Recorded Date/ Time Name of Medical Power of Flight Surgeon BOB FERRARO February 10, 2022 3:26am Name of Medical Power of Flight Surgeon Bob Ferraro February 19, 2022 4:02pm Name of Medical Power of Flight Surgeon Bob-Signific ant Other April 25, 2022 8:30pm Advance Directives Yes May 05 11:01am Living Will No April 30, 2022 2:25am Power of Flight Surgeon No April 30 2:25am Advance Directive Response Recorded Date/ Time Name of Medical Power of Flight Surgeon BOB FERRARO February 10, 2022 3:26am Name of Medical Power of Flight Surgeon Bob Ferraro February 19, 2022 4:02pm Name of Medical Power of Flight Surgeon Bob-Signific ant Other April 25, 2022 8:30pm Name of Medical Power of Flight Surgeon bob ferraro June 07, 2022 1:43pm Advance Directives Yes May 05 11:01am Living Will Yes June 07, 2022 1:43pm Power of Flight Surgeon Yes June 07 1:43pm Advance Directive Response Recorded Date/ Time Name of Medical Power of Flight Surgeon Bob Ferraro February 19, 2022 4:02pm Name of Medical Power of Flight Surgeon Katie ant Other April 25, 2022 8:30pm Name of Medical Power of Flight Surgeon bob ferraro June 07, 2022 1:43pm Advance Directives Yes May 05 11:01am Living Will Yes June 07, 2022 1:43pm Power of Flight Surgeon Yes June 07 1:43pm Advance Directive Response Recorded Date/ Time Name of Medical Power of Flight Surgeon Katie ant Other April 25, 2022 8:30pm Name of Medical Power of Flight Surgeon bob ferraro June 07, 2022 1:43pm Advance Directives Yes May 05 11:01am Living Will Yes June 07, 2022 1:43pm Power of Flight Surgeon Yes June 07 1:43pm Advance Directive Response Recorded Date/ Time Advance Directives Yes May 05 10:01am Living Will Yes June 07, 2022 12:43pm Power of Flight Surgeon Yes June 07 12:43pm Advance Directive Response Recorded Date/ Time Name of Medical Power of Flight Surgeon BOB April 10, 2023 12:51pm Advance Directives Yes May 05 11:01am Living Will Yes April 10, 2023 1 2:51pm Power of Flight Surgeon Yes April 10, 2023 12:51pm Advance Directive Response Recorded Date/ Time Name of Medical Power of Flight Surgeon Bob Ferraro April 10, 2023 10:19pm Advance Directives Yes May 05 11:01am Living Will Yes April 10, 2023 1 0:19pm Power of Flight Surgeon Yes April 10, 2023 10:19pm Advance Directive Response Recorded Date/ Time Name of Medical Power of Flight Surgeon Bob Ferraro April 10, 2023 10:19pm Name of Medical Power of Flight Surgeon Bob Ferraro April 13, 2023 2:13pm Advance Directives Yes May 05 11:01am Living Will Yes April 13, 2023 2 :13pm Power of Flight Surgeon Yes April 13, 2023 2:13pm Advance Directive Response Recorded Date/ Time Name of Medical Power of Flight Surgeon Bob Ferraro April 10, 2023 10:19pm Name of Medical Power of Flight Surgeon bob ferraro April 13, 2023 8:45pm Advance Directives Yes May 05 11:01am Living Will No April 23, 2023 10:16am Power of Flight Surgeon No April 23 10:16am Advance Directive Response Recorded Date/ Time Name of Medical Power of Flight Surgeon Bob Ferraro April 10, 2023 10:19pm Name of Medical Power of Flight Surgeon bob ferraro April 13, 2023 8:45pm Advance Directives Yes May 05 11:01am Living Will No April 23, 2023 3:00pm Power of Flight Surgeon No April 23 3:00pm Advance Directive Response Recorded Date/ Time Name of Medical Power of Flight Surgeon Bob Ferraro April 10, 2023 10:19pm Name of Medical Power of Flight Surgeon bob ferraro April 13, 2023 8:45pm Advance Directives Yes May 05 11:01am Living Will No June 21 12:26pm Power of Flight Surgeon No June 21 023 12:26pm Advance Directive Response Recorded Date/ Time Name of Medical Power of Flight Surgeon Bob Ferraro April 10, 2023 10:19pm Name of Medical Power of Flight Surgeon bob ferraro April 13, 2023 8:45pm Advance Directives Yes May 05 11:01am Living Will No June 21 3 5:55pm Power of Flight Surgeon No June 21 2 023 5:55pm Advance Directive Response Recorded Date/ Time Advance Directives Yes May 05 11:01am Living Will No June 21 3 5:55pm Power of Flight Surgeon No June 21 2 023 5:55pm Advance Directive Response Recorded Date/ Time Advance Directives Yes May 05 10:01am Living Will No June 21 3 4:55pm Power of Flight Surgeon No June 21 2 023 4:55pm Advance Directive Response Recorded Date/ Time Living Will No June 21 3 5:55pm Do you have a Healthcare Power of Flight Surgeon? No June 21, 2023 5:55pm Advance Directives Yes June 19, 2024 2:43pm Advance Directive Response Recorded Date/ Time Advance Directives Yes June 19, 2024 2:43pm Reason for Referral Specialty Diagnoses / Procedures Referred By Contac t Referred To Contact Radiology Diagnoses Low back pain without sciatica, unspecified back pain laterality, unspecified chronicity Procedures MR Lumbar Spine Without Contrast Viau, Munira Elder MD [address] [place] [address] Referral ID Status Reason Start Date Expiration Date V isits Requested Visits Authorized [id number] Authorized 03/30/2022 03/30/2023 1 1 Specialty Diagnoses / Procedures Referred By Contac t Referred To Contact Orthopedics Diagnoses 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 History of right hip replacement Procedures CONSULT TO ORTHOPAEDICS OFFICE/OUTPATIENT [facility] 60 MINUTES Jonnathan Kothari DO [address] [place] [address] Referral ID Status Reason Start Date Expiration Date Visits Requested Visits Authorized [id number] Authorized PCP Requested Referral 03/25/2024 03/25/2025 1 1 Specialty Diagnoses / Procedures Referred By Contac t Referred To Contact Pain Management Diagnoses Chronic right hip pain Procedures CONSULT TO PAIN MGT OFFICE/OUTPATIENT [facility] MDM 60 MINUTES Maximo Watkins MD [address] [place] [address] Referral ID Status Reason Start Date Expiration Date Visits Requested Visits Authorized [id number] Authorized PCP Requested Referral 06/13/2024 06/13/2025 1 1 Summary Purpose Additional Source Comments Source Comments (unrecognize d section and content) In the event this informatio n is protected by the Federal Confidentiality of Alcohol and Drug Abuse Patient Records regulations: The Federal rules restrict any use of the information to criminally investigate or prosecute any alcohol or drug abuse patient.[facility] the event this information is protected by the Federal Confidentiality of Alcohol and Drug Abuse Patient Records regulations: The Federal rules restrict any use of the information to criminally investigate or prosecute any alcohol or drug abuse patient.[facility]In the event this information is protected by the Federal Confidentiality of Alcohol and Drug Abuse Patient Records regulations: The Federal rules restrict any use of the information to criminally investigate or prosecute any alcohol or drug abuse patient.[facility] HospitalIn the event this information is protected by the Federal Confidentiality of Alcohol and Drug Abuse Patient Records regulations: The Federal rules restrict any use of the information to criminally investigate or prosecute any alcohol or drug abuse patient.[facility] HospitalIn the event this information is protected by the Federal Confidentiality of Alcohol and Drug Abuse Patient Records regulations: The Federal rules restrict any use of the information to criminally investigate or prosecute any alcohol or drug abuse patient.[facility] HospitalIn the event this information is protected by the Federal Confidentiality of Alcohol and Drug Abuse Patient Records regulations: The Federal rules restrict any use of the information to criminally investigate or prosecute any alcohol or drug abuse patient.[facility] HospitalIn the event this information is protected by the Federal Confidentiality of Alcohol and Drug Abuse Patient Records regulations: The Federal rules restrict any use of the information to criminally investigate or prosecute any alcohol or drug abuse patient.[facility] HospitalIn the event this information is protected by the Federal Confidentiality of Alcohol and Drug Abuse Patient Records regulations: The Federal rules restrict any use of the information to criminally investigate or prosecute any alcohol or drug abuse patient.[facility] HospitalIn the event this information is protected by the Federal Confidentiality of Alcohol and Drug Abuse Patient Records regulations: The Federal rules restrict any use of the information to criminally investigate or prosecute any alcohol or drug abuse patient.[facility] HospitalIn the event this information is protected by the Federal Confidentiality of Alcohol and Drug Abuse Patient Records regulations: The Federal rules restrict any use of the information to criminally investigate or prosecute any alcohol or drug abuse patient.[facility] HospitalIn the event this information is protected by the Federal Confidentiality of Alcohol and Drug Abuse Patient Records regulations: The Federal rules restrict any use of the information to criminally investigate or prosecute any alcohol or drug abuse patient.[facility] HospitalIn the event this information is protected by the Federal Confidentiality of Alcohol and Drug Abuse Patient Records regulations: The Federal rules restrict any use of the information to criminally investigate or prosecute any alcohol or drug abuse patient.[facility] HospitalIn the event this information is protected by the Federal Confidentiality of Alcohol and Drug Abuse Patient Records regulations: The Federal rules restrict any use of the information to criminally investigate or prosecute any alcohol or drug abuse patient.[facility] HospitalIn the event this information is protected by the Federal Confidentiality of Alcohol and Drug Abuse Patient Records regulations: The Federal rules restrict any use of the information to criminally investigate or prosecute any alcohol or drug abuse patient.[facility] HospitalIn the event this information is protected by the Federal Confidentiality of Alcohol and Drug Abuse Patient Records regulations: The Federal rules restrict any use of the information to criminally investigate or prosecute any alcohol or drug abuse patient.[facility] HospitalIn the event this information is protected by the Federal Confidentiality of Alcohol and Drug Abuse Patient Records regulations: The Federal rules restrict any use of the information to criminally investigate or prosecute any alcohol or drug abuse patient.[facility] HospitalIn the event this information is protected by the Federal Confidentiality of Alcohol and Drug Abuse Patient Records regulations: The Federal rules restrict any use of the information to criminally investigate or prosecute any alcohol or drug abuse patient.[facility] HospitalIn the event this information is protected by the Federal Confidentiality of Alcohol and Drug Abuse Patient Records regulations: The Federal rules restrict any use of the information to criminally investigate or prosecute any alcohol or drug abuse patient.[facility] HospitalIn the event this information is protected by the Federal Confidentiality of Alcohol and Drug Abuse Patient Records regulations: The Federal rules restrict any use of the information to criminally investigate or prosecute any alcohol or drug abuse patient.[facility] HospitalIn the event this information is protected by the Federal Confidentiality of Alcohol and Drug Abuse Patient Records regulations: The Federal rules restrict any use of the information to criminally investigate or prosecute any alcohol or drug abuse patient.[facility] HospitalIn the event this information is protected by the Federal Confidentiality of Alcohol and Drug Abuse Patient Records regulations: The Federal rules restrict any use of the information to criminally investigate or prosecute any alcohol or drug abuse patient.[facility] HospitalIn the event this information is protected by the Federal Confidentiality of Alcohol and Drug Abuse Patient Records regulations: The Federal rules restrict any use of the information to criminally investigate or prosecute any alcohol or drug abuse patient.[facility] HospitalIn the event this information is protected by the Federal Confidentiality of Alcohol and Drug Abuse Patient Records regulations: The Federal rules restrict any use of the information to criminally investigate or prosecute any alcohol or drug abuse patient.[facility] HospitalIn the event this information is protected by the Federal Confidentiality of Alcohol and Drug Abuse Patient Records regulations: The Federal rules restrict any use of the information to criminally investigate or prosecute any alcohol or drug abuse patient.[facility] HospitalIn the event this information is protected by the Federal Confidentiality of Alcohol and Drug Abuse Patient Records regulations: The Federal rules restrict any use of the information to criminally investigate or prosecute any alcohol or drug abuse patient.[facility] HospitalIn the event this information is protected by the Federal Confidentiality of Alcohol and Drug Abuse Patient Records regulations: The Federal rules restrict any use of the information to criminally investigate or prosecute any alcohol or drug abuse patient.[facility] HospitalIn the event this information is protected by the Federal Confidentiality of Alcohol and Drug Abuse Patient Records regulations: The Federal rules restrict any use of the information to criminally investigate or prosecute any alcohol or drug abuse patient.[facility] HospitalIn the event this information is protected by the Federal Confidentiality of Alcohol and Drug Abuse Patient Records regulations: The Federal rules restrict any use of the information to criminally investigate or prosecute any alcohol or drug abuse patient.[facility] HospitalIn the event this information is protected by the Federal Confidentiality of Alcohol and Drug Abuse Patient Records regulations: The Federal rules restrict any use of the information to criminally investigate or prosecute any alcohol or drug abuse patient.[facility] HospitalIn the event this information is protected by the Federal Confidentiality of Alcohol and Drug Abuse Patient Records regulations: The Federal rules restrict any use of the information to criminally investigate or prosecute any alcohol or drug abuse patient.[facility] HospitalIn the event this information is protected by the Federal Confidentiality of Alcohol and Drug Abuse Patient Records regulations: The Federal rules restrict any use of the information to criminally investigate or prosecute any alcohol or drug abuse patient.[facility] HospitalIn the event this information is protected by the Federal Confidentiality of Alcohol and Drug Abuse Patient Records regulations: The Federal rules restrict any use of the information to criminally investigate or prosecute any alcohol or drug abuse patient.[facility] HospitalIn the event this information is protected by the Federal Confidentiality of Alcohol and Drug Abuse Patient Records regulations: The Federal rules restrict any use of the information to criminally investigate or prosecute any alcohol or drug abuse patient.[facility] HospitalIn the event this information is protected by the Federal Confidentiality of Alcohol and Drug Abuse Patient Records regulations: The Federal rules restrict any use of the information to criminally investigate or prosecute any alcohol or drug abuse patient.[facility] HospitalIn the event this information is protected by the Federal Confidentiality of Alcohol and Drug Abuse Patient Records regulations: The Federal rules restrict any use of the information to criminally investigate or prosecute any alcohol or drug abuse patient.[facility] HospitalIn the event this information is protected by the Federal Confidentiality of Alcohol and Drug Abuse Patient Records regulations: The Federal rules restrict any use of the information to criminally investigate or prosecute any alcohol or drug abuse patient.[facility] HospitalIn the event this information is protected by the Federal Confidentiality of Alcohol and Drug Abuse Patient Records regulations: The Federal rules restrict any use of the information to criminally investigate or prosecute any alcohol or drug abuse patient.[facility] HospitalIn the event this information is protected by the Federal Confidentiality of Alcohol and Drug Abuse Patient Records regulations: The Federal rules restrict any use of the information to criminally investigate or prosecute any alcohol or drug abuse patient.[facility] HospitalIn the event this information is protected by the Federal Confidentiality of Alcohol and Drug Abuse Patient Records regulations: The Federal rules restrict any use of the information to criminally investigate or prosecute any alcohol or drug abuse patient.[facility] HospitalIn the event this information is protected by the Federal Confidentiality of Alcohol and Drug Abuse Patient Records regulations: The Federal rules restrict any use of the information to criminally investigate or prosecute any alcohol or drug abuse patient.[facility] HospitalIn the event this information is protected by the Federal Confidentiality of Alcohol and Drug Abuse Patient Records regulations: The Federal rules restrict any use of the information to criminally investigate or prosecute any alcohol or drug abuse patient.[facility] HospitalIn the event this information is protected by the Federal Confidentiality of Alcohol and Drug Abuse Patient Records regulations: The Federal rules restrict any use of the information to criminally investigate or prosecute any alcohol or drug abuse patient.[facility] HospitalIn the event this information is protected by the Federal Confidentiality of Alcohol and Drug Abuse Patient Records regulations: The Federal rules restrict any use of the information to criminally investigate or prosecute any alcohol or drug abuse patient.[facility] HospitalIn the event this information is protected by the Federal Confidentiality of Alcohol and Drug Abuse Patient Records regulations: The Federal rules restrict any use of the information to criminally investigate or prosecute any alcohol or drug abuse patient.[facility] HospitalIn the event this information is protected by the Federal Confidentiality of Alcohol and Drug Abuse Patient Records regulations: The Federal rules restrict any use of the information to criminally investigate or prosecute any alcohol or drug abuse patient.[facility] HospitalIn the event this information is protected by the Federal Confidentiality of Alcohol and Drug Abuse Patient Records regulations: The Federal rules restrict any use of the information to criminally investigate or prosecute any alcohol or drug abuse patient.[facility] HospitalIn the event this information is protected by the Federal Confidentiality of Alcohol and Drug Abuse Patient Records regulations: The Federal rules restrict any use of the information to criminally investigate or prosecute any alcohol or drug abuse patient.[facility] HospitalIn the event this information is protected by the Federal Confidentiality of Alcohol and Drug Abuse Patient Records regulations: The Federal rules restrict any use of the information to criminally investigate or prosecute any alcohol or drug abuse patient.[facility] HospitalIn the event this information is protected by the Federal Confidentiality of Alcohol and Drug Abuse Patient Records regulations: The Federal rules restrict any use of the information to criminally investigate or prosecute any alcohol or drug abuse patient.[facility] HospitalIn the event this information is protected by the Federal Confidentiality of Alcohol and Drug Abuse Patient Records regulations: The Federal rules restrict any use of the information to criminally investigate or prosecute any alcohol or drug abuse patient.[facility] HospitalIn the event this information is protected by the Federal Confidentiality of Alcohol and Drug Abuse Patient Records regulations: The Federal rules restrict any use of the information to criminally investigate or prosecute any alcohol or drug abuse patient.[facility] HospitalIn the event this information is protected by the Federal Confidentiality of Alcohol and Drug Abuse Patient Records regulations: The Federal rules restrict any use of the information to criminally investigate or prosecute any alcohol or drug abuse patient.[facility] HospitalIn the event this information is protected by the Federal Confidentiality of Alcohol and Drug Abuse Patient Records regulations: The Federal rules restrict any use of the information to criminally investigate or prosecute any alcohol or drug abuse patient.[facility] HospitalIn the event this information is protected by the Federal Confidentiality of Alcohol and Drug Abuse Patient Records regulations: The Federal rules restrict any use of the information to criminally investigate or prosecute any alcohol or drug abuse patient.[facility] HospitalIn the event this information is protected by the Federal Confidentiality of Alcohol and Drug Abuse Patient Records regulations: The Federal rules restrict any use of the information to criminally investigate or prosecute any alcohol or drug abuse patient.[facility] HospitalIn the event this information is protected by the Federal Confidentiality of Alcohol and Drug Abuse Patient Records regulations: The Federal rules restrict any use of the information to criminally investigate or prosecute any alcohol or drug abuse patient.[facility] HospitalIn the event this information is protected by the Federal Confidentiality of Alcohol and Drug Abuse Patient Records regulations: The Federal rules restrict any use of the information to criminally investigate or prosecute any alcohol or drug abuse patient.[facility] HospitalIn the event this information is protected by the Federal Confidentiality of Alcohol and Drug Abuse Patient Records regulations: The Federal rules restrict any use of the information to criminally investigate or prosecute any alcohol or drug abuse patient.[facility] HospitalIn the event this information is protected by the Federal Confidentiality of Alcohol and Drug Abuse Patient Records regulations: The Federal rules restrict any use of the information to criminally investigate or prosecute any alcohol or drug abuse patient.[facility] HospitalIn the event this information is protected by the Federal Confidentiality of Alcohol and Drug Abuse Patient Records regulations: The Federal rules restrict any use of the information to criminally investigate or prosecute any alcohol or drug abuse patient.[facility] HospitalIn the event this information is protected by the Federal Confidentiality of Alcohol and Drug Abuse Patient Records regulations: The Federal rules restrict any use of the information to criminally investigate or prosecute any alcohol or drug abuse patient.[facility] HospitalIn the event this information is protected by the Federal Confidentiality of Alcohol and Drug Abuse Patient Records regulations: The Federal rules restrict any use of the information to criminally investigate or prosecute any alcohol or drug abuse patient.[facility] HospitalIn the event this information is protected by the Federal Confidentiality of Alcohol and Drug Abuse Patient Records regulations: The Federal rules restrict any use of the information to criminally investigate or prosecute any alcohol or drug abuse patient.[facility] HospitalIn the event this information is protected by the Federal Confidentiality of Alcohol and Drug Abuse Patient Records regulations: The Federal rules restrict any use of the information to criminally investigate or prosecute any alcohol or drug abuse patient.[facility] HospitalIn the event this information is protected by the Federal Confidentiality of Alcohol and Drug Abuse Patient Records regulations: The Federal rules restrict any use of the information to criminally investigate or prosecute any alcohol or drug abuse patient.[facility] HospitalIn the event this information is protected by the Federal Confidentiality of Alcohol and Drug Abuse Patient Records regulations: The Federal rules restrict any use of the information to criminally investigate or prosecute any alcohol or drug abuse patient.[facility] HospitalIn the event this information is protected by the Federal Confidentiality of Alcohol and Drug Abuse Patient Records regulations: The Federal rules restrict any use of the information to criminally investigate or prosecute any alcohol or drug abuse patient.[facility] HospitalIn the event this information is protected by the Federal Confidentiality of Alcohol and Drug Abuse Patient Records regulations: The Federal rules restrict any use of the information to criminally investigate or prosecute any alcohol or drug abuse patient.[facility] HospitalIn the event this information is protected by the Federal Confidentiality of Alcohol and Drug Abuse Patient Records regulations: The Federal rules restrict any use of the information to criminally investigate or prosecute any alcohol or drug abuse patient.[facility] HospitalIn the event this information is protected by the Federal Confidentiality of Alcohol and Drug Abuse Patient Records regulations: The Federal rules restrict any use of the information to criminally investigate or prosecute any alcohol or drug abuse patient.[facility] HospitalIn the event this information is protected by the Federal Confidentiality of Alcohol and Drug Abuse Patient Records regulations: The Federal rules restrict any use of the information to criminally investigate or prosecute any alcohol or drug abuse patient.[facility] HospitalIn the event this information is protected by the Federal Confidentiality of Alcohol and Drug Abuse Patient Records regulations: The Federal rules restrict any use of the information to criminally investigate or prosecute any alcohol or drug abuse patient.[facility] HospitalIn the event this information is protected by the Federal Confidentiality of Alcohol and Drug Abuse Patient Records regulations: The Federal rules restrict any use of the information to criminally investigate or prosecute any alcohol or drug abuse patient.[facility] HospitalIn the event this information is protected by the Federal Confidentiality of Alcohol and Drug Abuse Patient Records regulations: The Federal rules restrict any use of the information to criminally investigate or prosecute any alcohol or drug abuse patient.[facility] HospitalIn the event this information is protected by the Federal Confidentiality of Alcohol and Drug Abuse Patient Records regulations: The Federal rules restrict any use of the information to criminally investigate or prosecute any alcohol or drug abuse patient.[facility] HospitalIn the event this information is protected by the Federal Confidentiality of Alcohol and Drug Abuse Patient Records regulations: The Federal rules restrict any use of the information to criminally investigate or prosecute any alcohol or drug abuse patient.[facility] HospitalIn the event this information is protected by the Federal Confidentiality of Alcohol and Drug Abuse Patient Records regulations: The Federal rules restrict any use of the information to criminally investigate or prosecute any alcohol or drug abuse patient.[facility] HospitalIn the event this information is protected by the Federal Confidentiality of Alcohol and Drug Abuse Patient Records regulations: The Federal rules restrict any use of the information to criminally investigate or prosecute any alcohol or drug abuse patient.[facility] HospitalIn the event this information is protected by the Federal Confidentiality of Alcohol and Drug Abuse Patient Records regulations: The Federal rules restrict any use of the information to criminally investigate or prosecute any alcohol or drug abuse patient.[facility] HospitalIn the event this information is protected by the Federal Confidentiality of Alcohol and Drug Abuse Patient Records regulations: The Federal rules restrict any use of the information to criminally investigate or prosecute any alcohol or drug abuse patient.[facility] HospitalIn the event this information is protected by the Federal Confidentiality of Alcohol and Drug Abuse Patient Records regulations: The Federal rules restrict any use of the information to criminally investigate or prosecute any alcohol or drug abuse patient.[facility] HospitalIn the event this information is protected by the Federal Confidentiality of Alcohol and Drug Abuse Patient Records regulations: The Federal rules restrict any use of the information to criminally investigate or prosecute any alcohol or drug abuse patient.[facility] HospitalIn the event this information is protected by the Federal Confidentiality of Alcohol and Drug Abuse Patient Records regulations: The Federal rules restrict any use of the information to criminally investigate or prosecute any alcohol or drug abuse patient.[facility]In the event this information is protected by the Federal Confidentiality of Alcohol and Drug Abuse Patient Records regulations: The Federal rules restrict any use of the information to criminally investigate or prosecute any alcohol or drug abuse patient.[facility] HospitalIn the event this information is protected by the Federal Confidentiality of Alcohol and Drug Abuse Patient Records regulations: The Federal rules restrict any use of the information to criminally investigate or prosecute any alcohol or drug abuse patient.[facility] HospitalIn the event this information is protected by the Federal Confidentiality of Alcohol and Drug Abuse Patient Records regulations: The Federal rules restrict any use of the information to criminally investigate or prosecute any alcohol or drug abuse patient.[facility] HospitalIn the event this information is protected by the Federal Confidentiality of Alcohol and Drug Abuse Patient Records regulations: The Federal rules restrict any use of the information to criminally investigate or prosecute any alcohol or drug abuse patient.[facility] HospitalIn the event this information is protected by the Federal Confidentiality of Alcohol and Drug Abuse Patient Records regulations: The Federal rules restrict any use of the information to criminally investigate or prosecute any alcohol or drug abuse patient.[facility] HospitalIn the event this information is protected by the Federal Confidentiality of Alcohol and Drug Abuse Patient Records regulations: The Federal rules restrict any use of the information to criminally investigate or prosecute any alcohol or drug abuse patient.[facility] HospitalIn the event this information is protected by the Federal Confidentiality of Alcohol and Drug Abuse Patient Records regulations: The Federal rules restrict any use of the information to criminally investigate or prosecute any alcohol or drug abuse patient.[facility] HospitalIn the event this information is protected by the Federal Confidentiality of Alcohol and Drug Abuse Patient Records regulations: The Federal rules restrict any use of the information to criminally investigate or prosecute any alcohol or drug abuse patient.[facility] HospitalIn the event this information is protected by the Federal Confidentiality of Alcohol and Drug Abuse Patient Records regulations: The Federal rules restrict any use of the information to criminally investigate or prosecute any alcohol or drug abuse patient.[facility] HospitalIn the event this information is protected by the Federal Confidentiality of Alcohol and Drug Abuse Patient Records regulations: The Federal rules restrict any use of the information to criminally investigate or prosecute any alcohol or drug abuse patient.[facility] HospitalIn the event this information is protected by the Federal Confidentiality of Alcohol and Drug Abuse Patient Records regulations: The Federal rules restrict any use of the information to criminally investigate or prosecute any alcohol or drug abuse patient.[facility] HospitalIn the event this information is protected by the Federal Confidentiality of Alcohol and Drug Abuse Patient Records regulations: The Federal rules restrict any use of the information to criminally investigate or prosecute any alcohol or drug abuse patient.[facility] HospitalIn the event this information is protected by the Federal Confidentiality of Alcohol and Drug Abuse Patient Records regulations: The Federal rules restrict any use of the information to criminally investigate or prosecute any alcohol or drug abuse patient.[facility] HospitalIn the event this information is protected by the Federal Confidentiality of Alcohol and Drug Abuse Patient Records regulations: The Federal rules restrict any use of the information to criminally investigate or prosecute any alcohol or drug abuse patient.[facility] HospitalIn the event this information is protected by the Federal Confidentiality of Alcohol and Drug Abuse Patient Records regulations: The Federal rules restrict any use of the information to criminally investigate or prosecute any alcohol or drug abuse patient.[facility] HospitalIn the event this information is protected by the Federal Confidentiality of Alcohol and Drug Abuse Patient Records regulations: The Federal rules restrict any use of the information to criminally investigate or prosecute any alcohol or drug abuse patient.[facility] HospitalIn the event this information is protected by the Federal Confidentiality of Alcohol and Drug Abuse Patient Records regulations: The Federal rules restrict any use of the information to criminally investigate or prosecute any alcohol or drug abuse patient.[facility] HospitalIn the event this information is protected by the Federal Confidentiality of Alcohol and Drug Abuse Patient Records regulations: The Federal rules restrict any use of the information to criminally investigate or prosecute any alcohol or drug abuse patient.[facility] HospitalIn the event this information is protected by the Federal Confidentiality of Alcohol and Drug Abuse Patient Records regulations: The Federal rules restrict any use of the information to criminally investigate or prosecute any alcohol or drug abuse patient.[facility] HospitalIn the event this information is protected by the Federal Confidentiality of Alcohol and Drug Abuse Patient Records regulations: The Federal rules restrict any use of the information to criminally investigate or prosecute any alcohol or drug abuse patient.[facility] HospitalIn the event this information is protected by the Federal Confidentiality of Alcohol and Drug Abuse Patient Records regulations: The Federal rules restrict any use of the information to criminally investigate or prosecute any alcohol or drug abuse patient.[facility] HospitalIn the event this information is protected by the Federal Confidentiality of Alcohol and Drug Abuse Patient Records regulations: The Federal rules restrict any use of the information to criminally investigate or prosecute any alcohol or drug abuse patient.[facility] HospitalIn the event this information is protected by the Federal Confidentiality of Alcohol and Drug Abuse Patient Records regulations: The Federal rules restrict any use of the information to criminally investigate or prosecute any alcohol or drug abuse patient.[facility] HospitalIn the event this information is protected by the Federal Confidentiality of Alcohol and Drug Abuse Patient Records regulations: The Federal rules restrict any use of the information to criminally investigate or prosecute any alcohol or drug abuse patient.[facility] HospitalIn the event this information is protected by the Federal Confidentiality of Alcohol and Drug Abuse Patient Records regulations: The Federal rules restrict any use of the information to criminally investigate or prosecute any alcohol or drug abuse patient.[facility] Reason for Visit (unrecogniz ed section [...] Reason Comments Results Reason Comments Faxed to [facility] med/surg Reason Comments Patient Request Patient is going to the 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 Reason Comments Hospital F/U Reason Comments verbal orders Reason Onset Date Comments Community Monitoring Outreach 04/20/2023 Reason Comments F/U 6 months Reason Onset Date Comments Community Monitoring Outreach 06/27/2023 Reason Onset Date Comments [facility] Monitoring Outreach 07/20/2023 Reason Onset Date Comments Community Monitoring Outreach 09/02/2023 Reason Comments Research Pre-Screen Research Reason Onset Date Comments Community Monitoring Outreach 09/23/2023 Reason Onset Date Comments [facility] Monitoring Outreach 12/06/2023 Reason Comments Imm/Inj Specialty Diagnoses / Procedures Referred By Contac t Referred To Contact Diagnoses Prostate cancer (HCC) Procedures LEUPROLIDE ACETATE SUSPNSION Jonnathan Kothari DO [address] [place] [address] [facility] [address] [place] [address] Referral ID Status Reason Start Date Expiration Date V isits Requested Visits Authorized [id number] Authorized 09/28/2023 11/06/2024 99 99 Reason Onset Date Comments [facility] Monitoring Outreach 01/18/2024 Reason Comments Established Patient Follow Up Reason Comments Established Patient Reason Comments Results Reason Comments Established Patient Follow-Up Specialty Diagnoses / Procedures Referred By Contac t Referred To Contact Diagnoses Prostate cancer (HCC) Kourtney Bhatia MD [address] [place] [address] [facility] [address] [place] [address] Referral ID Status Reason Start Date Expiration Date V isits Requested Visits Authorized [id number] Authorized 05/23/2024 08/21/2024 99 99 Reason Comments New Pain Reason Comments Education Of Patient/family Appointment Voicemail jean couch 08/22/2024 Appointment Reason Comments Established Patient Follow Up Results Reason Comments Established Patient Reason Comments Orders New lab orders for A pril appt Reason Comments Established Patient Liver Disease Reason Comments 08.07.25 Cure Open Right Inguinal Hernia Repair 2.5 hours los 2 Specialty Diagnoses / Procedures Referred By Contac t Referred To Contact Diagnoses Prostate cancer (HCC) Procedures LEUPROLIDE ACETATE SUSPNSION Jonnathan Kothari DO [address] [place] [address] Phone: tel: fax: Hematology/Oncology [address] [place] [address] Phone: tel: fax: Referral ID Status Reason Start Date Expiration Date Visits Re quested Visits Authorized [id number] Closed 09/28/2023 11/06/2024 99 99 Reason Comments Established Patient Liver disease Care Teams (unrecognized sec tion and content) Section Cutter Relationship Specialty Start Date End Date Manuel Beebe MD [address] [place], [place] [id number] PCP - General Internal Medicine 12/31/13 Nivia, Vandemere S Philatelic Consultant Cardiology 07/09/20 Albino Copeland, technical support internLegal Writing Professor Internal Medicine 05/19/21 Section Cutter Relationship Specialty Start Date End Date Manuel Beebe MD [address] [place], [place] [id number] PCP - General Internal Medicine 12/31/13 Nivia, Cosme S Philatelic Consultant Cardiology 07/09/20 Albino Copeland, technical support internLegal Writing Professor Internal Medicine 05/19/21 Jana Lara, [facility] [address] [place] [address] Pharmacist Pharmacy 02/02/22 Section Cutter Relationship Specialty Start Date End Date Manuel Beebe MD [address] [place], [place] [id number] [phone] PCP - General Internal Medicine 12/31/13 Nivia, Cosme S Philatelic Consultant Cardiology 07/09/20 Albino Copeland, technical support internLegal Writing Professor Internal Medicine 05/19/21 [facility] [address] [facility] [place] [address] Pharmacist Pharmacy 02/02/22 Section Cutter Relationship Specialty Start Date End Date Manuel Beebe MD [address] [facility] [place] [address] PCP - General Internal Medicine 12/31/13 Nivia, Vandemere S Philatelic Consultant Cardiology 07/09/20 Albino Copeland, technical support internLegal Writing Professor Internal Medicine 05/19/21 [facility] [address] [facility] [place] [place] [address] Pharmacist Pharmacy 02/02/22 Section Cutter Relationship Specialty Start Date End Date No, Physician [facility] PCP - General 02/10/22 Section Cutter Relationship Specialty Start Date End Date Manuel Beebe MD [address] [place] [address] PCP - General Internal Medicine 12/31/13 Nivia, Vandemere S Philatelic Consultant Cardiology 07/09/20 Albino Copeland, technical support internLegal Writing Professor Internal Medicine 05/19/21 [facility] [address] [facility] [place] [place] [address] Pharmacist Pharmacy 02/02/22 Section Cutter Relationship Specialty Start Date End Date No, Physician [facility] PCP - General 02/10/22 Section Cutter Relationship Specialty Start Date End Date Manuel Beebe MD [address] [facility] [place] [address] PCP - General Internal Medicine 12/31/13 Nivia, Vandemere S Philatelic Consultant Cardiology 07/09/20 Lorrie Osorio, RN [address] [place] [address] Legal Writing Professor 05/08/2105/08 Dinorah Posada (Rn) [address] [place], [place] [address] Legal Writing Professor Family Practice 05/08/2105/07 Albino Copeland, technical support internLegal Writing Professor Internal Medicine 05/19/21 [facility] [address] [place] [address] Pharmacist Pharmacy 02/02/22 Section Cutter Relationship Specialty Start Date End Date Manuel Beebe MD [address] [place], [place] [address] PCP - General Internal Medicine 12/31/13 Nivia, Cosme S Philatelic Consultant Cardiology 07/09/20 Albino Copeland, technical support internLegal Writing Professor Internal Medicine 05/19/21 Jana Lara, [facility] [address] [place] [address] Pharmacist Pharmacy 02/02/22 Section Cutter Relationship Specialty Start Date End Date No, Physician [facility] PCP - General 02/10/22 Section Cutter Relationship Specialty Start Date End Date No, Physician [facility] PCP - General 02/10/22 Section Cutter Relationship Specialty Start Date End Date No, Physician [facility] PCP - General 02/10/22 Section Cutter Relationship Specialty Start Date End Date No, Physician [facility] PCP - General 02/10/22 Section Cutter Relationship Specialty Start Date End Date Manuel Beebe MD [address] [place] [address] PCP - General Internal Medicine 12/31/13 Nivia, Cosme S Philatelic Consultant Cardiology 07/09/20 Albino Copeland, technical support internLegal Writing Professor Internal Medicine 05/19/21 [facility] [address] [facility] [place] [place] [address] Pharmacist Pharmacy 02/02/22 Section Cutter Relationship Specialty Start Date End Date Manuel Beebe MD [address] [facility] [place] [address] PCP - General Internal Medicine 12/31/13 Nivia, Cosme S Philatelic Consultant Cardiology 07/09/20 Albino Copeland, technical support internLegal Writing Professor Internal Medicine 05/19/21 [facility] [address] [facility] [place] [address] Pharmacist Pharmacy 02/02/22 Section Cutter Relationship Specialty Start Date End Date Manuel Beebe MD [address] [facility] [place] [address] PCP - General Internal Medicine 12/31/13 Nivia, Cosme S Philatelic Consultant Cardiology 07/09/20 Albino Copeland, technical support internLegal Writing Professor Internal Medicine 05/19/21 Jaan Lara, [facility] [address] [facility] [place] [address] Pharmacist Pharmacy 02/02/22 Section Cutter Relationship Specialty Start Date End Date Manuel Beebe MD [address] [place] [address] PCP - General Internal Medicine 05/05/22 Section Cutter Relationship Specialty Start Date End Date Manuel Beebe MD [address] [place] [address] PCP - General Internal Medicine 05/05/22 Section Cutter Relationship Specialty Start Date End Date Manuel Beebe MD [address] [place] [address] PCP - General Internal Medicine 05/05/22 Section Cutter Relationship Specialty Start Date End Date Manuel Beebe MD [address] [place] [address] PCP - General Internal Medicine 12/31/13 Nivia, Vandemere S Philatelic Consultant Cardiology 07/09/20 Albino oCpeland, technical support internLegal Writing Professor Internal Medicine 05/19/21 [facility] [address] [place] [address] Pharmacist Pharmacy 02/02/22 Section Cutter Relationship Specialty Start Date End Date Manuel Beebe MD [address] [place] [address] PCP - General Internal Medicine 12/31/13 Nivia, Cosme S Philatelic Consultant Cardiology 07/09/20 Albino Copeland, technical support internLegal Writing Professor Internal Medicine 05/19/21 [facility] [address] [place] [address] Pharmacist Pharmacy 02/02/22 Section Cutter Relationship Specialty Start Date End Date Manuel Beebe MD [address] [place] [address] PCP - General Internal Medicine 12/31/13 Nivia, Cosme S Philatelic Consultant Cardiology 07/09/20 Albino Copeland, technical support internLegal Writing Professor Internal Medicine 05/19/21 [facility] [address] [facility] [place] [address] Pharmacist Pharmacy 02/02/22 Section Cutter Relationship Specialty Start Date End Date Manuel Beebe MD [address] [facility] [place] [place] [address] PCP - General Internal Medicine 12/31/13 Nivia, Vandemere S Philatelic Consultant Cardiology 07/09/20 Dinorah Posada, technical support internLegal Writing Professor Internal Medicine 05/19/21 [facility] [address] [facility] [place] [place] [address] Pharmacist Pharmacy 02/02/22 Section Cutter Relationship Specialty Start Date End Date Manuel Beebe MD [address] [facility] [place] [address] PCP - General Internal Medicine 12/31/13 Nivia, Cosme S [address] [facility] [place] [address] Philatelic Consultant Cardiology 07/09/20 Dinroah Posada, technical support internLegal Writing Professor Internal Medicine 05/19/21 [facility] [address] [facility] [place] [address] Pharmacist Pharmacy 02/02/22 Section Cutter Relationship Specialty Start Date End Date Manuel Beebe MD [address] [facility] [place] [place] [address] PCP - General Internal Medicine 12/31/13 Nivia, Vandemere S [address] [facility] [place] [address] Philatelic Consultant Cardiology 07/09/20 Dinorah Posada, technical support internLegal Writing Professor Internal Medicine 05/19/21 Jana Lara, [facility] [address] [facility] [place] [address] Pharmacist Pharmacy 02/02/22 Section Cutter Relationship Specialty Start Date End Date Manuel Beebe MD [address] [place] [address] PCP - General Internal Medicine 12/31/13 Cosme Gonzáles [address] [facility] [place] [place] [address] Philatelic Consultant Cardiology 07/09/20 Dinorah Posada RN Legal Writing Professor Internal Medicine 05/19/21 Jana Lara, [facility] [address] [facility], [place] [address] Pharmacist Pharmacy 02/02/22 Team Status: Active Member [...] Provider Active PATRICIA Gramajo Attending Provider Active Section Cutter Relationship Specialty Start Date End Date Manuel Beebe MD [address] [facility] [place] [address] PCP - General Internal Medicine 12/31/13 Nivia, Cosme S [address] [facility] [place] [place] [address] Philatelic Consultant Cardiology 07/09/20 Dinorah Posada, technical support internLegal Writing Professor Internal Medicine 05/19/21 [facility] [address] [facility] [place] [place] [address] Pharmacist Pharmacy 02/02/22 Section Cutter Relationship Specialty Start Date End Date Manuel Beebe MD [address] [facility] [place] [place] [address] PCP - General Internal Medicine 12/31/13 Nivia, Vandemere S [address] [place] [address] Philatelic Consultant Cardiology 07/09/20 Dinorah Posada, technical support internLegal Writing Professor Internal Medicine 05/19/21 [facility] [address] [place] [address] Pharmacist Pharmacy 02/02/22 Team Status: Inactive Member Role Status Dates Dr. Manuel Beebe MD Primary Care Provider, Referr ing Provider Active Dr. Adilson Sal DO Attending Provider Active Team Status: Active Member Role Status Dates Dr. Manuel Beebe MD Primary Care Provider Active Dr. Jerry De Paz MD Attending Provider Active Dr. Dwayne Horton MD Referring Provider Active Section Cutter Relationship Specialty Start Date End Date Manuel Beebe MD [address] [place] [address] PCP - General Internal Medicine 12/31/13 Nivia, Cosme S [address] [place] [address] Philatelic Consultant Cardiology 07/09/20 Dinorah Posada, technical support internLegal Writing Professor Internal Medicine 05/19/21 [facility] [address] [facility] [place] [address] Pharmacist Pharmacy 02/02/22 Section Cutter Relationship Specialty Start Date End Date Manuel Beebe MD [address] [facility] [place] [address] PCP - General Internal Medicine 12/31/13 Nivia, Cosme S [address] [facility] [place] [address] Philatelic Consultant Cardiology 07/09/20 Dinorah Posada, technical support internLegal Writing Professor Internal Medicine 05/19/21 [facility] [address] [facility] [place] [place] [address] Pharmacist Pharmacy 02/02/22 Section Cutter Relationship Specialty Start Date End Date Manuel Beebe MD [address] [facility] [place] [address] PCP - General Internal Medicine 12/31/13 Nivia, Cosme S [address] [facility] [place] [address] Philatelic Consultant Cardiology 07/09/20 Dinorah Posada, technical support internLegal Writing Professor Internal Medicine 05/19/21 [facility] [address] [facility] [place] [address] Pharmacist Pharmacy 02/02/22 Team Status: Inactive Member Role Status Dates Dr. Manuel Beebe MD Primary Care Provider, Referr ing Provider Active Tahmina Vyas Attending Provider Active Team Status: Active Member Role Status Dates Dr. Manuel Beebe MD Primary Care Provider Active Victorino Badillo MD Emergency Provider Active Dr. Leonie Jacobs MD Admit Provider, At tending Provider, Other Provider Active Team Status: Active Member Role Status Dates Dr. Manuel Beebe MD Primary Care Provider Active Victorino Badillo MD Emergency Provider Active Dr. Leonie Jacobs MD Admit Provider, Attending Provid er Active Section Cutter Relationship Specialty Start Date End Date Manuel Beebe MD [address] [place] [address] PCP - General Internal Medicine 12/31/13 Nivia, Vandemere S [address] [place] [address] Philatelic Consultant Cardiology 07/09/20 Dinorah Posada, technical support internLegal Writing Professor Internal Medicine 05/19/21 [facility] [address] [place] [address] Pharmacist Pharmacy 02/02/22 Team Status: Active Member Role Status Dates Dr. Manuel Beebe MD Primary Care Provider Active Victorino Badillo MD Emergency Provider Active Dr. Leonie Jacobs MD Admit Provider, Other Provider A ctive Dr. Firo Turner MD Attending Provider, Other Prov ider Active Team Status: Inactive Member Role Status Dates Dr. Manuel Beebe MD Primary Care Provider Active Victorino Badillo MD Emergency Provider Active Dr. Leonie Jacobs MD Admit Provider, Other Provider A ctive Dr. Fior Turner MD Attending Provider Active Section Cutter Relationship Specialty Start Date End Date Manuel Beebe MD [address] [place] [address] PCP - General Internal Medicine 12/31/13 Nivia, Cosme S [address] [place] [address] Philatelic Consultant Cardiology 07/09/20 Dinorah Posada, technical support internLegal Writing Professor Internal Medicine 05/19/21 [facility] [address] [place] [address] Pharmacist Pharmacy 02/02/22 Section Cutter Relationship Specialty Start Date End Date Manuel Beebe MD [address] [facility] [place] [place] [address] PCP - General Internal Medicine 12/31/13 Nivia, Cosme S [address] [facility] [place] [place] [address] Philatelic Consultant Cardiology 07/09/20 Dinorah Posada, technical support internLegal Writing Professor Internal Medicine 05/19/21 [facility] [address] [facility] [place] [place] [address] Pharmacist Pharmacy 02/02/22 Section Cutter Relationship Specialty Start Date End Date Manuel Beebe MD [address] [facility] [place] [place] [address] PCP - General Internal Medicine 12/31/13 [facility], Vandemere S [address] [facility] [place] [place] [address] Philatelic Consultant Cardiology 07/09/20 Dinorah Posada, technical support internLegal Writing Professor Internal Medicine 05/19/21 [facility] [address] [facility] [place] [place] [address] Pharmacist Pharmacy 02/02/22 Team Status: Active Member Role Status Dates Dr. Manuel Beebe MD Primary Care Provider Active Dr. Jo-Ann Bliss DO Emergency Provider Active Dr. Norris Orellana MD Admit Provider, Attending Provi philip Active Section Cutter Relationship Specialty Start Date End Date Manuel Beebe MD [address] [facility] [place] [address] PCP - General Internal Medicine 12/31/13 Nivia, Cosme S [address] [facility] [place] [address] Philatelic Consultant Cardiology 07/09/20 Dinorah Posada, technical support internLegal Writing Professor Internal Medicine 05/19/21 Jana Lara, [facility] [address] [place], [place] [address] Pharmacist Pharmacy 02/02/22 Section Cutter Relationship Specialty Start Date End Date Manuel Beebe MD [address] [place], [place] [id number] PCP - General Internal Medicine 12/31/13 Cosme Gonzáles [address] [place], [place] [id number] Philatelic Consultant Cardiology 07/09/20 Dinorah Posada RN Legal Writing Professor Internal Medicine 05/19/21 [facility] [address] [place], [place] [id number] Pharmacist Pharmacy 02/02/22 Team Status: Active Member [...] Beebe MD Primary Care Provider Active Dr. Fredyd Benitez MD Attending Provider Active Team Status: [...] MD Primary Care Provider Active Martha Ashby GREENHOUSE INSTRUCTOR, GREENHOUSE INSTRUCTOR-C Attending Provider Active Team Status: Inactive Member [...] Dr. Juan Conte DO Emergency Provider Active Team Status: Active Member Role Status Dates Dr. Manuel Beebe MD Primary Care Provider Active Dr. Juan Conte DO Emergency Provider Active Dr. Maximo Addison MD Admit Provider, Other Pro vider Active Dr. Quynh Araya , DO Attending Provider, Other Provide r Active Team Status: Active Member Role Status Dates Dr. Manuel Beebe MD Primary Care Provider Active Dr. Juan Conte DO Emergency Provider Active Dr. Maximo Addison MD Admit Provider, Other Pro vider Active Dr. Norris Orellana MD Other Provider Active Dr. Quynh Araya , DO [...] Active Chandana Jain MD Other Provider Active Section Cutter Relationship Specialty Start Date End Date Manuel Beebe MD [address] [place] [address] PCP - General Internal Medicine 12/31/13 Cosme Gonzáles [address] [place] [address] Philatelic Consultant Cardiology 07/09/20 Dinorah Posada RN Legal Writing Professor Internal Medicine 05/19/21 [facility] [address] [place] [address] Pharmacist Pharmacy 02/02/22 Team Status: Active Member Role Status Dates Dr. Manuel Beebe MD Primary Care Provider Active Dr. Juan Conte DO Emergency Provider Active Dr. Maximo Addison MD Admit Provider, Other Pro vider Active Dr. Norris Orellana MD Referring Provider, Other Provi phiilp Active Dr. Quynh Araya , Other Provider Active Chandana Jain MD Attending Provider, Other Provider Active Team Status: Inactive Member Role Status Dates Dr. Manuel Beebe MD Primary Care Provider Active Dr. Elisa SERRANO MD Attending Provider Active Section Cutter Relationship Specialty Start Date End Date Manuel Beebe MD [address] [place] [address] PCP - General Internal Medicine 12/31/13 Cosme Gonzáles [address] [place] [address] Philatelic Consultant Cardiology 07/09/20 Dinorah Posada RN Legal Writing Professor Internal Medicine 05/19/21 [facility] [address] [place] [address] Pharmacist Pharmacy 02/02/22 Team Status: Inactive Member Role Status Dates Dr. Manuel Beebe MD Primary Care Provider Active Dr. Adilson Sal DO Attending Provider Active Team Status: Inactive Member Role Status Dates Dr. Manuel Beebe MD Primary Care Provider Active Dr. Elisa SERRANO MD Attending Provider, Referring Provider Active Section Cutter Relationship Specialty Start Date End Date Manuel Beebe MD [address] [facility] [place] [address] PCP - General Internal Medicine 12/31/13 Cosme Gonzáles MD [address] [facility] [place] [address] Philatelic Consultant Cardiology 07/09/20 Dinorah Posada, technical support internLegal Writing Professor Internal Medicine 05/19/21 [facility] [address] [facility] [place] [place] [address] Pharmacist Pharmacy 02/02/22 Team Status: Inactive Member Role Status Dates Dr. Manuel Beebe MD Primary Care Provider Active Dr. Elisa Narvaez MD Attending Provider Active Section Cutter Relationship Specialty Start Date End Date Manuel Beebe MD [address] [facility] [place] [place] [address] PCP - General Internal Medicine 12/31/13 Cosme Gonzáles MD [address] [facility] [place] [place] [address] Philatelic Consultant Cardiology 07/09/20 Dinorah Posada technical support internLegal Writing Professor Internal Medicine 05/19/21 [facility] [address] [place] [address] Pharmacist Pharmacy 02/02/22 Section Cutter Relationship Specialty Start Date End Date Manuel Beebe MD [address] [place] [address] PCP - General Internal Medicine 12/31/13 Cosme Gonzáles MD [address] [facility] [place] [place] [address] Philatelic Consultant Cardiology 07/09/20 Dinorah Posada, technical support internLegal Writing Professor Internal Medicine 05/19/21 [facility] Pharmacist Pharmacy 02/02/22 Section Cutter Relationship Specialty Start Date End Date Manuel Beebe MD [address] [place], [place] [id number] PCP - General Internal Medicine 12/31/13 Cosme Gonzáles MD [address] [place], [place] [phone] Philatelic Consultant Cardiology 07/09/20 Dinorah Posada RN Legal Writing Professor Internal Medicine 05/19/21 [facility] Pharmacist Pharmacy 02/02/22 Section Cutter Relationship Specialty Start Date End Date Manuel Beebe MD [address] [place] [address] PCP - General Internal Medicine 12/31/13 Cosme Gonzáles MD [address] [place] [address] Philatelic Consultant Cardiology 07/09/20 Dinorah Posada, technical support internLegal Writing Professor Internal Medicine 05/19/21 Section Cutter Relationship Specialty Start Date End Date Manuel Beebe MD [address] [place] [address] PCP - General Internal Medicine 12/31/13 Cosme Gonzáles MD [address] [place] [address] Philatelic Consultant Cardiology 07/09/20 Dinorah Posada, technical support internLegal Writing Professor Internal Medicine 05/19/21 Team Status: Inactive Member Role Status Dates Dr. Manuel Beebe MD Primary Care Provider, Referr ing Provider Active Dr. Cosme Gonzáles MD Attending Provider Active Team Status: Inactive Member Role Status Dates Dr. Manuel Beebe MD Primary Care Provider Active Dr. Cosme Gonzáles MD Attending Provider Active Section Cutter Relationship Specialty Start Date End Date Manuel Beebe MD [address] [facility] [place] [place] [address] PCP - General Internal Medicine 12/31/13 Cosme Gonzáles MD [address] [place] [address] Philatelic Consultant Cardiology 07/09/20 Dinorah Posada, technical support internLegal Writing Professor Internal Medicine 05/19/21 Section Cutter Relationship Specialty Start Date End Date Manuel Beebe MD [address] [facility] [place] [place] [address] PCP - General Internal Medicine 12/31/13 Cosme Gonzáles MD [address] [facility] [place] [place] [address] Philatelic Consultant Cardiology 07/09/20 Dinorah Posada, technical support internLegal Writing Professor Internal Medicine 05/19/21 Section Cutter Relationship Specialty Start Date End Date Manuel Beebe MD [address] [facility] [place] [address] PCP - General Internal Medicine 12/31/13 Cosme Gonzáles MD [address] [facility] [place] [address] Philatelic Consultant Cardiology 07/09/20 Dinorah Posada, technical support internLegal Writing Professor Internal Medicine 05/19/21 Section Cutter Relationship Specialty Start Date End Date Manuel Beebe MD [address] [place] [address] PCP - General Internal Medicine 12/31/13 Cosme Gonzáles MD [address] [place] [address] Philatelic Consultant Cardiology 07/09/20 Dinorah Posada, technical support internLegal Writing Professor Internal Medicine 05/19/21 Section Cutter Relationship Specialty Start Date End Date Manuel Beebe MD [address] [place] [address] PCP - General Internal Medicine 12/31/13 Cosme Gonzáles MD [address] [place] [address] Philatelic Consultant Cardiology 07/09/20 Dinorah Posada, technical support internLegal Writing Professor Internal Medicine 05/19/21 Section Cutter Relationship Specialty Start Date End Date Manuel Beebe MD [address] [place] [address] PCP - General Internal Medicine 12/31/13 Cosme Gonzáles MD [address] [place] [address] Philatelic Consultant Cardiology 07/09/20 Section Cutter Relationship Specialty Start Date End Date Elisa Narvaez MD [address] [place] [address] PCP - General Gerontology 03/14/24 Cosme Gonzáles MD Philatelic Consultant Cardiology 07/09/20 Section Cutter Relationship Specialty Start Date End Date Elisa Narvaez MD [address] [place] [address] PCP - General Gerontology 03/14/24 Cosme Gonzáles MD Philatelic Consultant Cardiology 07/09/20 Section Cutter Relationship Specialty Start Date End Date Elisa Narvaez MD [address] [place] [address] PCP - General Gerontology 03/14/24 Cosme Gonzáles MD Philatelic Consultant Cardiology 07/09/20 Section Cutter Relationship Specialty Start Date End Date Elisa Narvaez MD [address] [place] [address] PCP - General Gerontology 03/14/24 Cosme Gonzáles MD Philatelic Consultant Cardiology 07/09/20 Section Cutter Relationship Specialty Start Date End Date Elisa Narvaez MD [address] [place] [address] PCP - General Gerontology 03/14/24 Cosme Gonzáles MD Philatelic Consultant Cardiology 07/09/20 Section Cutter Relationship Specialty Start Date End Date Elisa Narvaez MD [address] [place] [address] PCP - General Gerontology 03/14/24 oCsme Gonzáles MD Philatelic Consultant Cardiology 07/09/20 Section Cutter Relationship Specialty Start Date End Date Elisa Narvaez MD [address] [place] [address] PCP - General Gerontology 03/14/24 Cosme Gonzáles MD Philatelic Consultant Cardiology 07/09/20 Section Cutter Relationship Specialty Start Date End Date Elisa Narvaez MD [address] [place] [id number] PCP - General Gerontology 03/14/24 Cosme Gonzáles MD Philatelic Consultant Cardiology 07/09/20 Section Cutter Relationship Specialty Start Date End Date Elisa Narvaez MD [address] [place] [address] PCP - General Gerontology 03/14/24 Cosme Gonzáles MD Philatelic Consultant Cardiology 07/09/20 Section Cutter Relationship Specialty Start Date End Date Elisa Narvaez MD [address] [place] [address] PCP - General Gerontology 03/14/24 Cosme Gonzáles MD Philatelic Consultant Cardiology 07/09/20 Section Cutter Relationship Specialty Start Date End Date Elisa Narvaez MD [address] [place] [address] PCP - General Gerontology 03/14/24 Cosme Gonzáles MD Philatelic Consultant Cardiology 07/09/20 Section Cutter Relationship Specialty Start Date End Date Elisa Narvaez MD [address] [place] [address] PCP - General Gerontology 03/14/24 Cosme Gonzáles MD Philatelic Consultant Cardiology 07/09/20 Section Cutter Relationship Specialty Start Date End Date Elisa Narvaez MD [address] [place] [address] PCP - General Gerontology 03/14/24 Cosme Gonzáles MD Philatelic Consultant Cardiology 07/09/20 Section Cutter Relationship Specialty Start Date End Date Elisa Narvaez MD [address] [place] [address] PCP - General Gerontology 03/14/24 Cosme Gonzáles MD Philatelic Consultant Cardiology 07/09/20 Section Cutter Relationship Specialty Start Date End Date Elisa Narvaez MD [address] [place] [address] PCP - General Gerontology 03/14/24 Cosme Gonzáles MD Philatelic Consultant Cardiology 07/09/20 Section Cutter Relationship Specialty Start Date End Date Elisa Narvaez MD [address] [place] [address] PCP - General Gerontology 03/14/24 Cosme Gonzáles MD Philatelic Consultant Cardiology 07/09/20 Section Cutter Relationship Specialty Start Date End Date Elisa Narvaez MD [address] [place] [address] PCP - General Gerontology 03/14/24 Cosme Gonzáles MD Philatelic Consultant Cardiology 07/09/20 Section Cutter Relationship Specialty Start Date End Date Elisa Narvaez MD [address] [place] [address] PCP - General Gerontology 03/14/24 Cosme Gonzáles MD Philatelic Consultant Cardiology 07/09/20 Team Status: Active Member Role [...] January 24, 2025 End: January 24, 2025 Section Cutter Relationship Specialty Start Date End Date Elisa Narvaez MD [address] [place] [address] PCP - General Gerontology 03/14/24 Cosme Gonzáles MD Philatelic Consultant Cardiology 07/09/20 Section Cutter Relationship Specialty Start Date End Date Elisa Narvaez MD [address] [place] [address] PCP - General Gerontology 03/14/24 Cosme Gonzáles MD Philatelic Consultant Cardiology 07/09/20 Section Cutter Relationship Specialty Start Date End Date Elisa Narvaez MD [address] [place] [address] PCP - General Gerontology 03/14/24 Cosme Gonzáles MD Philatelic Consultant Cardiology 07/09/20 Section Cutter Relationship Specialty Start Date End Date Elisa Narvaez MD [address] [place] [address] PCP - General Gerontology 03/14/24 Cosme Gonzáles MD Philatelic Consultant Cardiology 07/09/20 Section Cutter Relationship Specialty Start Date End Date Elisa Narvaez MD [address] [place] [address] PCP - General Gerontology 03/14/24 Cosme Gonzáles MD Philatelic Consultant Cardiology 07/09/20 Section Cutter Relationship Specialty Start Date End Date Elisa Narvaez MD [address] [place] [address] PCP - General Gerontology 03/14/24 Cosme Gonzáles MD Philatelic Consultant Cardiology 07/09/20 Team Status: Active Member Role [...] March 11, 2025 End: March 11, 2025 Section Cutter Relationship Specialty Start Date End Date Elisa Narvaez MD [address] [place] [address] PCP - General Gerontology 03/14/24 Cosme Gonzáles MD Philatelic Consultant Cardiology 07/09/20 Section Cutter Relationship Specialty Start Date End Date Elisa Narvaez MD [address] [place] [address] PCP - General Gerontology 03/14/24 Cosme Gonzáles MD Philatelic Consultant Cardiology 07/09/20 Section Cutter Relationship Specialty Start Date End Date Elisa Narvaez MD [address] [place] [address] PCP - General Gerontology 03/14/24 Cosme Gonzáles MD Philatelic Consultant Cardiology 07/09/20 Team Status: Active Member Role/Relationship Status Dates Dr. Manuel Beebe MD Primary Care Provider Active Team Status: Inactive Member Role/Relationship Status Dates Dr. Manuel Beebe MD Primary Care Provider Active Start: March 11, 2025 End: March 11, 2025 Dr. Elisa SERRANO MD Attending Provider Active Start: March 11, 2025 End: March 11, 2025 Team Status: Inactive Member Role/Relationship Status Dates Dr. Manuel Beebe MD Primary Care Provider Active Start: March 13, 2025 End: March 13, 2025 Dr. Cosme Gonzáles MD Attending Provider Active S tart: March 13, 2025 End: March 13, 2025 Team Status: Inactive Member Role/Relationship Status Dates Dr. Manuel Beebe MD Primary Care Provider Active Start: March 15, 2025 End: March 15, 2025 Dr. Elisa SERRANO MD Attending Provider Active Start: March 15, 2025 End: March 15, 2025 Team Status: Active Member Role/Relationship Status Dates Dr. Manuel Beebe MD Primary Care Provider Active Start: April 12, 2025 Dr. Elisa SERRANO MD Attending Provider Active Start: April 12, 2025 Team Status: Active Member Role/Relationship Status Dates Dr. Manuel Beebe MD Primary Care Provider Active Start: April 24, 2025 Dr. Elisa SERRANO MD Attending Provider Active Start: April 24, 2025 Dr. Elisa SERRANO MD Referring Provider Active Start: April 24, 2025 Team Status: Active Member Role/Relationship Status Dates Dr. Manuel Beebe MD Primary Care Provider Active Start: May 14, 2025 Dr. Elisa SERRANO MD Attending Provider Active Start: May 14, 2025 Team Status: Active Member Role/Relationship Status Dates Dr. Manuel Beebe MD Primary Care Provider Active Start: May 21, 2025 Dr. Elisa SERRANO MD Attending Provider Active Start: May 21, 2025 Team Status: Active Member Role/Relationship Status Dates Dr. Manuel Beebe MD Primary Care Provider Active Start: May 30, 2025 Dr. Elisa SERRANO MD Attending Provider Active Start: May 30, 2025 Team Status: Active Member Role/Relationship Status Dates Dr. Manuel Beebe MD Primary Care Provider Active Start: June 11, 2025 Dr. Elisa SERRANO MD Attending Provider Active Start: June 11, 2025 Team Status: Active Member Role/Relationship Status Dates Dr. Manuel Beebe MD Primary Care Provider Active Start: June 18, 2025 Dr. Manuel Beebe MD Referring Provider Active Start: June 18, 2025 Tahmina Vyas Attending Provider Active Start: 2024 Team Status: Inactive Member Role/Relationship Status Dates Dr. Manuel Beebe MD Primary Care Provider Active Start: June 18, 2025 End: June 18, 2025 Dr. Manuel Beebe MD Referring Provider Active Start: June 18, 2025 End: June 18, 2025 Maye Rizzo PA, PA Attending Provider Active Start: June 18, 2025 End: June 18, 2025 Team Status: Inactive Member Role/Relationship Status Dates Dr. Manuel Beebe MD Primary Care Provider Active Start: June 18, 2025 End: June 18, 2025 Dr. Manuel eBebe MD Referring Provider Active Start: June 18, 2025 End: June 18, 2025 Tahmina Vyas Attending Provider Active Start: 2024 End: June 18, 2025 Team Status: Inactive Member Role/Relationship Status Dates Dr. Manuel Beebe MD Primary Care Provider Active Start: May 24, 2025 End: May 24, 2025 Dr. oCsme Gonzáles MD Attending Provider Active S tart: May 24, 2025 End: May 24, 2025 Team Status: Active Member Role/Relationship Status Dates Dr. Manuel Beebe MD Primary Care Provider Active Start: May 30, 2025 Dr. Elisa SERRANO MD Attending Provider Active Start: May 30, 2025 Team Status: Active Member Role/Relationship Status Dates Dr. Manuel Beebe MD Primary Care Provider Active Start: June 11, 2025 Dr. Elisa SERRANO MD Attending Provider Active Start: June 11, 2025 Team Status: Inactive Member Role/Relationship Status Dates Dr. Manuel Beebe MD Primary Care Provider Active Start: June 14, 2025 End: June 14, 2025 Dr. Cosme Gonzáles MD Attending Provider Active S tart: June 14, 2025 End: June 14, 2025 Team Status: Inactive Member Role/Relationship Status Dates Dr. Manuel Beebe MD Primary Care Provider Active Start: June 18, 2025 End: June 18, 2025 Dr. Cosme Gonzáles MD Attending Provider Active S tart: June 18, 2025 End: June 18, 2025 Team Status: Inactive Member Role/Relationship Status Dates Dr. Manuel Beebe MD Primary Care Provider Active Start: June 18, 2025 End: June 18, 2025 Dr. Manuel Beebe MD Referring Provider Active Start: June 18, 2025 End: June 18, 2025 Tahmina Vyas Attending Provider Active Start: A 2024 End: June 18, 2025 Team Status: Inactive Member Role/Relationship Status Dates Dr. Manuel Beebe MD Primary Care Provider Active Start: June 18, 2025 End: June 18, 2025 Dr. Manuel Beebe MD Referring Provider Active Start: June 18, 2025 End: June 18, 2025 Maye Rizzo PA, PA Attending Provider Active Start: June 18, 2025 End: June 18, 2025 Team Status: Active Member Role/Relationship Status Dates Dr. Manuel Beebe MD Primary Care Provider Active Start: April 12, 2025 Dr. Elisa SERRANO MD Attending Provider Active Start: April 12, 2025 Team Status: Active Member Role/Relationship Status Dates Dr. Manuel Beebe MD Primary Care Provider Active Start: April 24, 2025 Dr. Elisa SERRANO MD Attending Provider Active Start: April 24, 2025 Dr. Elisa SERRANO MD Referring Provider Active Start: April 24, 2025 Team Status: Active Member Role/Relationship Status Dates Dr. Manuel Beebe MD Primary Care Provider Active Start: May 14, 2025 Dr. Elisa SERRANO MD Attending Provider Active Start: May 14, 2025 Team Status: Active Member Role/Relationship Status Dates Dr. Manuel Beebe MD Primary Care Provider Active Start: May 21, 2025 Dr. Elisa SERRANO MD Attending Provider Active Start: May 21, 2025 Team Status: Inactive Member Role/Relationship Status Dates Dr. Manuel Beebe MD Primary Care Provider Active Start: May 24, 2025 End: May 24, 2025 Dr. Cosme Gonzáles MD Attending Provider Active S tart: May 24, 2025 End: May 24, 2025 Team Status: Active Member Role/Relationship Status Dates Dr. Manuel Beeeb MD Primary Care Provider Active Start: May 30, 2025 Dr. Elisa SERRANO MD Attending Provider Active Start: May 30, 2025 Team Status: Active Member Role/Relationship Status Dates Dr. Manuel Beebe MD Primary Care Provider Active Start: June 11, 2025 Dr. Elisa SERRANO MD Attending Provider Active Start: June 11, 2025 Dr. Elisa SERRANO MD Referring Provider Active Start: June 11, 2025 Team Status: Inactive Member Role/Relationship Status Dates Dr. Manuel Beebe MD Primary Care Provider Active Start: June 14, 2025 End: June 14, 2025 Dr. Cosme Gonzáles MD Attending Provider Active S tart: June 14, 2025 End: June 14, 2025 Team Status: Inactive Member Role/Relationship Status Dates Dr. Manuel Beebe MD Primary Care Provider Active Start: June 18, 2025 End: June 18, 2025 Dr. Cosme Gonzáles MD Attending Provider Active S tart: June 18, 2025 End: June 18, 2025 Team Status: Active Member Role/Relationship Status Dates Dr. Manuel Beebe MD Primary Care Provider Active Start: July 09, 2025 Dr. Elisa SERRANO MD Attending Provider Active Start: July 09, 2025 Team Status: Active Member Role/Relationship Status Dates Dr. Manuel Beebe MD Primary Care Provider Active Start: July 16, 2025 Dr. Elisa SERRANO MD Attending Provider Active Start: July 16, 2025 Team Status: Inactive Member Role/Relationship Status Dates Dr. Manuel Beebe MD Primary Care Provider Active Start: July 16, 2025 End: July 16, 2025 Dr. Manuel Beebe MD Referring Provider Active Start: July 16, 2025 End: July 16, 2025 Dr. Dwayne Horton MD Attending Provider Active Start: July 16, 2025 End: July 16, 2025 Section Cutter Relationship Specialty Start Date End Date Elisa Narvaez MD [address] [place] [address] PCP - General Gerontology 03/14/24 Cosme Gonzáles MD Philatelic Consultant Cardiology 07/09/20 Section Cutter Relationship Specialty Start Date End Date Elisa Narvaez MD [address] [place] [address] PCP - General Gerontology 03/14/24 Cosme Gonzáles MD Philatelic Consultant Cardiology 07/09/20 Section Cutter Relationship Specialty Start Date End Date Elisa Narvaez MD [address] [place] [address] PCP - General Gerontology 03/14/24 Cosme Gonzáles MD Philatelic Consultant Cardiology 07/09/20 Section Cutter Relationship Specialty Start Date End Date Elisa Narvaez MD [address] [place] [address] PCP - General Gerontology 03/14/24 Cosme Gonzáles MD Philatelic Consultant Cardiology 07/09/20 Team Status: Active Member Role/Relationship Status Dates Dr. Manuel Beebe MD Primary care physician Active Team Status: Active Member Role/Relationship Status Dates Dr. Manuel Beebe MD Primary care physician Active Start: April 12, 2025 Dr. Elisa SERRANO MD Attending physician Active Start: April 12, 2025 Team Status: Active Member Role/Relationship Status Dates Dr. Manuel Beebe MD Primary care physician Active Start: April 24, 2025 Dr. Elisa SERRANO MD Attending physician Active Start: April 24, 2025 Dr. Elisa SERRANO MD Referring Provider Active Start: April 24, 2025 Team Status: Active Member Role/Relationship Status Dates Dr. Manuel Beebe MD Primary care physician Active Start: May 14, 2025 Dr. Elisa SERRANO MD Attending physician Active Start: May 14, 2025 Team Status: Inactive Member Role/Relationship Status Dates Dr. Manuel Beebe MD Primary care physician Active Start: May 21, 2025 End: May 21, 2025 Dr. Elisa SERRANO MD Attending physician Active Start: May 21, 2025 End: May 21, 2025 Team Status: Inactive Member Role/Relationship Status Dates Dr. Manuel Beebe MD Primary care physician Active Start: May 24, 2025 End: May 24, 2025 Dr. Cosme Gonzáles MD Attending physician Active Start: May 24, 2025 End: May 24, 2025 Team Status: Active Member Role/Relationship Status Dates Dr. Manuel Beebe MD Primary care physician Active Start: May 30, 2025 Dr. Elisa SERRANO MD Attending physician Active Start: May 30, 2025 Team Status: Active Member Role/Relationship Status Dates Dr. Manuel Beebe MD Primary care physician Active Start: June 11, 2025 Dr. Elisa SERRANO MD Attending physician Active Start: June 11, 2025 Dr. Elisa SERRANO MD Referring Provider Active Start: June 11, 2025 Team Status: Inactive Member Role/Relationship Status Dates Dr. Manuel Beebe MD Primary care physician Active Start: June 14, 2025 End: June 14, 2025 Dr. Cosme Gonzáles MD Attending physician Active Start: June 14, 2025 End: June 14, 2025 Team Status: Inactive Member Role/Relationship Status Dates Dr. Manuel Beebe MD Primary care physician Active Start: June 18, 2025 End: June 18, 2025 Dr. Cosme Gonzáles MD Attending physician Active Start: June 18, 2025 End: June 18, 2025 Team Status: Inactive Member Role/Relationship Status Dates Dr. Manuel Beebe MD Primary care physician Active Start: June 18, 2025 End: June 18, 2025 Dr. Manuel Beebe MD Referring Provider Active Start: June 18, 2025 End: June 18, 2025 Tahmina Vyas Attending physician Active Start: June 18, 2025 End: June 18, 2025 Team Status: Inactive Member Role/Relationship Status Dates Dr. Manuel Beebe MD Primary care physician Active Start: June 18, 2025 End: June 18, 2025 Dr. Manuel Beebe MD Referring Provider Active Start: June 18, 2025 End: June 18, 2025 Maye Rizzo PA, PA Attending physician Active Start: June 18, 2025 End: June 18, 2025 Team Status: Active Member Role/Relationship Status Dates Dr. Manuel Beebe MD Primary care physician Active Start: July 09, 2025 Dr. Elisa SERRANO MD Attending physician Active Start: July 09, 2025 Team Status: Active Member Role/Relationship Status Dates Dr. Manuel Beebe MD Primary care physician Active Start: July 16, 2025 Dr. Elisa SERRANO MD Attending physician Active Start: July 16, 2025 Team Status: Inactive Member Role/Relationship Status Dates Dr. Manuel Beebe MD Primary care physician Active Start: July 16, 2025 End: July 16, 2025 Dr. Manuel Beebe MD Referring Provider Active Start: July 16, 2025 End: July 16, 2025 Dr. Dwayne Horton MD Attending physician Active Start: July 16, 2025 End: July 16, 2025 Team Status: Active Member Role/Relationship Status Dates Dr. Manuel Beebe MD Primary care physician Active Start: August 06, 2025 Dr. Elisa SERRANO MD Attending physician Active Start: August 06, 2025 Goals (unrecognized section and content) Goals may [...] section and content) DATE CREATED AUTHOR [facility] DATE CREATED AUTHOR AUTHOR'S ORGANIZ ATION 05/27/2024 [facility] DATE CREATED AUTHOR AUTHOR'S ORGANIZ ATION 09/06/2025 [facility] DATE CREATED AUTHOR AUTHOR'S ORGANIZ ATION 09/07/2025 [facility] Inactive Administered Medications - up [...] BE BASED ON THE PRIMARY CLINICAL RECORDS. [facility] [employer] [facility]. provides no warranty or guarantee of the accuracy or completeness of information in this document.
[2025-10-08 08:14] LABS: Ammonia 27.1 umol/L (16-60)
== END ==
LOC: OLS.SW 05:00
PROVIDERS: PCP Internal Medicine; Visit Provider Internal Medicine
DX: N17.9 Acute kidney failure, unspecified (principal)
CPT/HCPCS: 36415; 82140

== ENCOUNTER → 2025-10-17 16:15 | Outpatient (REF) | payer MEDICARE, MEDICAID, SELFPAY ==
[2025-10-17 16:30] LABS: Hematocrit 40.7 % (40-54); Hemoglobin 12.7 g/dL (13.0-16.5); Mean Corp Hgb Conc 31.2 g/dL (32-36); Mean Corpuscular Volume 101.0 fL (80-94); Mean Platelet Vol. 11.0 fl (6.2-12.0); Platelet Count 120 K/mm3 (150-450); RBC Distribution Width CV 14.8 % (11.6-14.6); RBC Distribution Width SD 55.5 fl (35.1-43.9); Red Blood Count 4.03 M/mm3 (4.6-6.2); White Blood Count 7.7 K/mm3 (4.4-11.0)
[2025-10-17 16:57] LABS: Anion Gap 14 (5-15); BUN 25 mg/dL (4-19); BUN/Creat Ratio 21.5 RATIO (10-20); Calcium,Total 8.7 mg/dL (7.6-11.0); Carbon Dioxide 19.1 mmol/L (21.0-32.0); Chloride 106 mmol/L (98-108); Glucose 157 mg/dL (70-99); Potassium 3.5 mmol/L (3.3-5.1)
== END ==
LOC: OLS.SW 16:15
PROVIDERS: PCP Internal Medicine; Visit Provider Internal Medicine
DX: Z00.00 Encounter for general adult medical examination without abnormal findings (principal)
CPT/HCPCS: 80048; 85027

== ENCOUNTER → 2025-11-05 05:00 | Outpatient (REF) | payer MEDICARE, MEDICAID, SELFPAY ==
--- OUTSIDE RECORDS SUMMARY | 2025-11-05 04:39 | XMS RPT_ITS | CCD ---
Author Organization [facility] Care Team Providers Care Nuclear Scientist Name Role Phone Manuel Beebe MD Primary Care Provider Cosme Gonzáles Unavailable Dinorah WINSTON, Albino Fuentes Unavailable Unavailabl e [facility], Keti Unavailable Unavailable Primary Care Provider Dr. [...] Attending Provider Dr. Joey Dee Emergency Provider [phone] Dr. Goldy Delatorre Admit Provider Dr. Goldy [...] Unavailable Dinorah RN, Posada M Unavailable Unavailabl renny Lara [facility], Jana Unavailable MUNIRA DICKERSON Referring Unavailable MUNIRA [...] Sal Attending Provider Cosme Gonzáles S Unavailable [facility], Keti Unavailable Dr. Manuel Beebe Primary Care Provider Dr. Manuel Beebe Referring Provider Dr. Adilson Sal Attending Provider Albino WINSTON, Dinorah Fuentes Unavailable Unavailabl e Manuel Beebe MD Primary Care Provider Cosme Gonzáles S Unavailable Albino WINSTON, Dinorah Fuentes Unavailable Unavailabl e [facility], Keti Unavailable Dr. Manuel Beebe Primary [...] Dr. Manuel Beebe Primary Care Provider Symone WATER RESTORATION TECHNICIAN, WATER RESTORATION TECHNICIANNardaC Martha Attending Provider Nataliav Dr. Azael Demarco Attending Provider Dr. Manuel Beebe Referring Provider So FORREST, [place] Maye Fuentes Attending Provider Dr. Juan Conte Emergency Provider Dr. Maximo Addison Admit Provider Dr. Quynh Araya Attending Provider Dr. Quynh Araya Other Provider MD Chandana Jain Other Provider MD Chandana Jain Attending Provider Nivia, [place] S Unavailable Albino RN, Dinorah Fuentes Unavailable Dr. Norris Fiore Referring Provider Dr. Adilson Sal Attending Provider Nivia BUSTILLO, [place] S Unavailable Dr. Manuel Beebe Primary Care Provider Symone WATER RESTORATION TECHNICIAN, WATER RESTORATION TECHNICIAN-C Martha Attending Provider Kamini Turner, Dr. Fior [...] Attending Provider Dr. Maximo Addison Other Provider [facility], Keti Unavailable Dr. Manuel Beebe Primary [...] Provider Rafia BUSTILLO, Dr. Pérez Attending Provider Arnold Narvaez MD, Dr. Pérez Referring Provider Arnold Gonzáles MD, Dr. Aguiar Attending Provider Parker BUSTILLO, Dr. Manuel Chávez Referring Provider Maye Hall Attending Provider Dr. Dwayne Horton MD Attending Provider Parker BUSTILLO, Dr. Manuel Chávez Primary Care Provider Rafia BUSTILLO, Dr. Pérez Attending Provider Arnold Beebe MD, Dr. Manuel Chávez Primary Care Provider Dr. Elisa Narvaez MD Attending Provider Arnold Beebe MD, Dr. Manuel Chávez Primary Care Provider Dr. Elisa Narvaez MD Attending Provider Unavailelizabeth Gonzáles MD, Dr. Aguiar Attending Provider Rafia BUSTILLO, Dr. Pérez Referring Provider Unavailelizabeth Beebe MD, Dr. Manuel Chávez Referring Provider Tahmina Vyas Attending Provider Unavailable Maye Hall Attending Provider Parker BUSTILLO, Dr. Manuel Chávez Primary Care Provider Rafia BUSTILLO, Dr. Pérez Attending Provider Unavailelizabeth Gonzáles MD, Dr. Aguiar Attending Provider Sol [...] GUDLA, ELISA D Primary Care Unavailable SANIYA JONNATHAN A Referring Unavailable GUDLA, ELISA D Primary Care Unavailable GUDLA, ELISA D Primary Care Unavailable MERLIN LOREDO Referring Unavailable MERLIN LOREDO Attending Unavailable EL ARNETT Attending Unavailable EL ARNETT Admitting Unavailable GUDLA, ELISA D Primary Care Unavailable GUDLA, ELISA D Primary Care Unavailable MERLIN LOREDO Referring Unavailable GUDLA, ELSIA D Primary Care Unavailable MERLIN LOREDO Referring Unavailable JONNATHAN KOTHARI Referring Unavailable GUDLA, ELISA D Primary Care [...] Unavailable Gudla OLS, Elisa Attending Unavailable Nivia, [place] Attending Unavailable Talampas, Manuel D Primary Care Unavailable Talampas, Manuel D Referring Unavailable Tahmina Vyas Attending Unavailable Talampas, Manuel D Primary Care Unavailable Talampas, Manuel D Referring Unavailable Talampas, Manuel D Primary Care Unavailable Maye Rizzo Attending Unavailabl e Talampas, Manuel D Primary Care Unavailable Nivia, [place] Attending Unavailable Talampas, Manuel D Primary Care Unavailable Nivia, [place] Attending Unavailable Talampas, Manuel D Primary Care Unavailable Talampas, Manuel D Referring Unavailable Maye Rizzo Attending Unavailabl e Talampas, Manuel D Primary Care Unavailable Gudla OLS, Elisa Attending Unavailable Nivia, [place] Attending Unavailable Talampas, Manuel D Primary Care [...] Drug Allergy 9 Intolerance, Other (See Comments) [facility] Work Phone: (20 sources) metFORMIN; Translations: [METFORMIN] Drug Allergy 1 Diarrhea [facility] Work Phone: (20 sources) oxyCODONE; Translations: [OXYCODONE] Drug Allergy 2 Itching, Headache [facility] (20 sources) Acetaminophen; Translations: [ACETAMINOPHEN] Drug Allergy 2 Other (See Comments) [facility] (10 sources) [place] grass pollen extract; Translations: [ALLERG EX,GRASS POLLEN-BERMUDA] Drug Allergy 9 Unknown [facility] (20 sources) Acetaminophen / oxyCODONE; Translations: [OXYCODONE-ACETAM INOPHEN] Drug Allergy 3 Unknown [facility] (1 source) Acetaminophen Drug Allergy 5 [facility] (1 source) oxyCODONE Drug Allergy 5 [facility] Medications Current Medications Medication Drug [...] of insulin (FORM[facility]) Test Two times a day. Insulin Dep? [...] on above: Take 1 capsule by mo [facility] once daily. Multivitamin preparation (20 sources) [...] {tbl} PO DAILY February 19, 2022 12:00am Mv,Ca,Zxu-Wpva-Hd-Lycopene (Centrum Ultra Men's) 8 mg iron- 200 mcg-600 mcg tablet (1 source) Start: 12-10-2021 Mv,Ca,Xhb-Yfyn-Aq-Lycopene (Centrum Ultra Men's) 8 mg iron- 200 [...] 5 minutes as needed for Chest Pain. [place] 5-Fok-Kxe-Fish Oil (Fish Oil) 60-90-500 mg capsule (1 source) Start: 12-10-2021 take 1 capsule by mouth once daily [place] 7-Ntq-Zom-Fish Oil (Fish Oil) 60-90-500 mg capsule Active [...] AT BEDTIME June 20, 2023 11:00pm sennosides, correction 8.6 mg oral tablet (20 sources) Start: [...] mg oral capsule (20 sources) Antiarrhythmic, Uncompetitive F-fqvxyu-C-aspartate Receptor Antagonist, Cytochrome P450 2D6 Inhibitor, Sigma-1 [...] 5:31pm docusate sodium 50 mg / sennosides, correction 8.6 mg oral tablet (20 sources) Start: [...] June 25, 2020 12:02am lactobacillus rhamnosus gg [id number] unt oral capsule (20 sources) Start: 06-21-20 [...] on above: Take 1 capsule by mo [facility] twice daily. polysaccharide iron complex 150 [...] Coronary atherosclerosis; Translations: [Atherosclerotic heart disease of [place] coronary artery without angina pectoris] Onset: 9 [...] sources) Long-term current use of anticoagulant; Translations: [manager long term care (current) use of anticoagulants] Onset: 7 02-24-2017 Episodic Other aftercare (1 source) Other manager long term care (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; Translations: [Other usp (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] Onset: Episodic Other and [...] Respiratory failure; insufficiency; arrest (adult) (20 sources) Vbmzd-ye-knkrksq respiratory failure; Translations: [Acute and chronic respiratory [...] aftercare (20 sources) Drug therapy finding; Translations: [alf (current) use of anticoagulants] Onset: 10-25-2019 10-25-2019 Episodic Other aftercare (1 source) manager long term care (current) use of anticoagulants; Translations: [On continuous [...] Test Name Value Interpretation Reference Range Facility [facility] 09-04-2025 [facility] Telephone (PULMWS) -- STEPH BAUMANN ([id number]) 1950 M Date Time Provider Department 09/04/25 LENNIE DUMONT During your visit today, we recorded the following information about you: Ema Schwab 09/04/2025 10:40 AM Signed Patient's Bob HERNÁNDEZ, called to schedule establish care appointmetn with Dr. Dumont. Patient was referred by security guards dispatcher Dr. Urrutia to [facility] due to the patient residing in detention in the region. Patient is unable to [...] (more content not included)... Normal [facility] CNOVon 08-29-2025 CNOV Office Visit (GENSMN ) -- STEPH BAUMANN ([id number]) 1950 M Date Time Provider Department 08/29/25 [...] Leonie Antoine MD 08/29/2025 4:45 PM Signed [facility] Abdominal [facility] - ESTABLISHED FOLLOW-UP Chief Complaint: [...] failure to thrive Atherosclerotic heart disease of [place] coronary artery without angina pectoris Atrial fibrillation [...] situ 10/[address] Gonzáles alf current use of insulin (HCC) Metabolic encephalopathy [...] Mother thinks over active Diabetes Child daughter Additional family history not [...] (more content not included)... Normal [facility] PSA SerPl-ncon 08-21-2025 Prostate specific Ag [Mass/Vol] ng/mL Normal <2.60 [facility] Comment on above: Order Comment: Speci men Type: BLOOD SPECIMENOrdering Facility: [facility] Address: [address] [place] [address] Result Comment: Jajaa saray PSA test methodology used is the Electrochemiluminescence Immunoassay by [employer]. Total PSA values by differing methodologies cannot be interchanged. Performed By: #### 2 857-1 ####[facility] LABCLIA [id number] [place] [address] [place] CBC W/Diff, Automatedon 10-0 Absolute Lymph 0.65 X10 3/uL Low 0.83-4.51 [facility] Comment on above: Order Comment: 302.1 Performed By: #### L 503.5510 #### [facility] [address] [place], [address] Absolute Neut 4.9 X10 3/uL Normal 2.0-7.7 [facility] Comment on above: Order Comment: 302.1 Performed By: #### L 503.5510 #### [facility] [address] [place] [place], [address] Basophils/100 WBC (Bld) 0.5 % Normal 0-1 [facility] Comment on above: Order Comment: 302.1 Performed By: #### L 503.5510 #### [facility] [address] [place], [address] Eosinophils/100 WBC (Bld) 5.5 % High 0-5 [facility] Comment on above: Order Comment: 302.1 Performed By: #### L 503.5510 #### [facility] [address] [place], [address] Erythrocyte distribution width (RBC) [Ratio] 14.1 % Normal 11.6-14.6 [facility] Comment on above: Order Comment: 302.1 Performed By: #### L 503.5510 #### [facility] [address] [place], [address] Hematocrit (Bld) [Volume fraction] 33.9 % Low 40-54 [facility] Comment on above: Order Comment: 302.1 Performed By: #### L 503.5510 #### [facility] [address] [place], [address] Hemoglobin (Bld) [Mass/Vol] 10.7 g/dL Low 13.0-16.5 [facility] Comment on above: Order Comment: 302.1 Performed By: #### L 503.5510 #### [facility] [address] [place], [address] IG% 1.500 High 0.0-0.9 [facility] Comment on above: Order Comment: 302.1 Result Comment: IG% - Immature Granulocytes (promyelocytes, myelocytes and metamyelocytes) > 1% indicates that a LEFT SHIFT is Present. Performed By: #### L 503.5510 #### [facility] [address] [place], [address] Lymphocytes/100 WBC (Bld) 9.9 % Low 19-41 [facility] Comment on above: Order Comment: 302.1 Performed By: #### L 503.5510 #### [facility] [address] [place], [address] MCH (RBC) [Entitic mass] 31.5 pg Normal 27.0-32.0 [facility] Comment on above: Order Comment: 302.1 Performed By: #### L 503.5510 #### [facility] [address] [place], [address] MCHC (RBC) [Mass/Vol] 31.6 g/dL Low 32-36 [facility] Comment on above: Order Comment: 302.1 Performed By: #### L 503.5510 #### [facility] [address] [place], [address] MCV (RBC) [Entitic vol] 99.7 fL High 80-94 [facility] Comment on above: Order Comment: 302.1 Performed By: #### L 503.5510 #### [facility] [address] [place], [address] Monocytes/100 WBC (Bld) 7.5 % Normal 0-10 [facility] Comment on above: Order Comment: 302.1 Performed By: #### L 503.5510 #### [facility] [address] [place], [address] Neutrophils/100 WBC (Bld) 75.1 % High 47-70 [facility] Comment on above: Order Comment: 302.1 Performed By: #### L 503.5510 #### [facility] [address] [place], [address] Nucleated RBC (Bld) [#/Vol] 0 10*3/uL Normal 0-5 [facility] Comment on above: Order Comment: 302.1 Performed By: #### L 503.5510 #### [facility] [address] [place], [address] Platelet mean volume (Bld) [Entitic vol] 11.5 fL Normal 6.2-12.0 [facility] Comment on above: Order Comment: 302.1 Performed By: #### L 503.5510 #### [facility] [address] [place], [address] Platelets (Bld) [#/Vol] 160 10*3/uL Normal 150-450 [facility] Comment on above: Order Comment: 302.1 Performed By: #### L 503.5510 #### [facility] [address] [place], [address] RBC (Bld) [#/Vol] 3.40 10*6/uL Low 4.6-6.2 [facility] Comment on above: Order Comment: 302.1 Performed By: #### L 503.5510 #### [facility] [address] [place], [address] RDW SD 51.6 fl High 35.1-43.9 [facility] Comment on above: Order Comment: 302.1 Performed By: #### L 503.5510 #### [facility] [address] [place], [address] WBC (Bld) [#/Vol] 6.6 10*3/uL Normal 4.4-11.0 [facility] Comment on above: Order Comment: 302.1 Performed By: #### L 503.5510 #### [facility] [address] [place], [address] Comprehensive Metabolic Prof uton 08-13-2025 Albumin [Mass/Vol] 3.6 g/dL Normal 3.4-4.8 [facility] Comment on above: Order Comment: 302 Performed By: #### L 503.5510 #### [facility] [address] [place], [address] Albumin/Globulin [Mass ratio] 1.2 {ratio} Normal 0.9-2.4 [facility] Comment on above: Order Comment: 302 Performed By: #### L 503.5510 #### [facility] [address] [place], [address] ALK PHOS 62 U/L Normal 40-129 [facility] Comment on above: Order Comment: 302 Performed By: #### L 503.5510 #### [facility] [address] [place], [address] ALT [Catalytic activity/Vol] 13 U/L Normal <=46 [facility] Comment on above: Order Comment: 302 Performed By: #### L 503.5510 #### [facility] [address] [place], [address] AST [Catalytic activity/Vol] 18 U/L Normal <=37 [facility] Comment on above: Order Comment: 302 Performed By: #### L 503.5510 #### [facility] [address] [place], [address] Bilirubin [Mass/Vol] 0.37 mg/dL Normal 0.00-1.30 [facility] Comment on above: Order Comment: 302 Performed By: #### L 503.5510 #### [facility] [address] [place], [address] BUN/CRE 20.9 RATIO High 10-20 [facility] Comment on above: Order Comment: 302 Performed By: #### L 503.5510 #### [facility] [address] [place], [address] Calcium [Mass/Vol] 8.6 mg/dL Normal 7.6-11.0 [facility] Comment on above: Order Comment: 302 Performed By: #### L 503.5510 #### [facility] [address] [place], [address] Chloride [Moles/Vol] 106 mmol/L Normal 98-108 [facility] Comment on above: Order Comment: 302 Performed By: #### L 503.5510 #### [facility] [address] [place], [address] CO2 [Moles/Vol] 17.2 mmol/L Low 21.0-32.0 [facility] Comment on above: Order Comment: 302 Performed By: #### L 503.5510 #### [facility] [address] [place], [address] Creatinine [Mass/Vol] 0.98 mg/dL Normal 0.70-1.20 [facility] Comment on above: Order Comment: 302 Performed By: #### L 503.5510 #### [facility] [address] [place], [address] GAP 10 Normal 5-15 [facility] Comment on above: Order Comment: 302 Performed By: #### L 503.5510 #### [facility] [address] [place], [address] GFR/1.73 sq M.predicted among non-blacks MDRD (S/P/Bld) [Vol rate/Area] 81 mL/min/{1.73_m2} Normal >60 [facility] Comment on above: Order Comment: 302 Result Comment: mL/m in/1.73m2 CKD-EPI Creatinine Equation (2020) Performed By: #### L 503.5510 #### [facility] [address] [place], [address] Globulin (S) [Mass/Vol] 2.9 g/dL Normal 2.2-4.2 [facility] Comment on above: Order Comment: 302 Performed By: #### L 503.5510 #### [facility] [address] [place], [address] Glucose [Mass/Vol] 121 mg/dL High 70-99 [facility] Comment on above: Order Comment: 302 Performed By: #### L 503.5510 #### [facility] [address] [place], [address] Potassium [Moles/Vol] 4.2 mmol/L Normal 3.3-5.1 [facility] Comment on above: Order Comment: 302 Performed By: #### L 503.5510 #### [facility] [address] [place], [address] Sodium [Moles/Vol] 133 mmol/L Normal 133-145 [facility] Comment on above: Order Comment: 302 Performed By: #### L 503.5510 #### [facility] [address] [place], [address] T PROT 6.5 g/dL Normal 5.9-8.4 [facility] Comment on above: Order Comment: 302 Performed By: #### L 503.5510 #### [facility] [address] [place], [address] Urea nitrogen [Mass/Vol] 21 mg/dL High 4-19 [facility] Comment on above: Order Comment: 302 Performed By: #### L 503.5510 #### [facility] [address] [place], [address] Magnesiumon 08-13-2025 Magnesium [Mass/Vol] 2.1 mg/dL Normal 1.5-2.2 [facility] Comment on above: Order Comment: 302 Performed By: #### L 503.5510 #### [facility] [address] [place], [address] Basic metabolic 2000 panelon 08-08-2025 Anion gap [Moles/Vol] 12 mmol/L Normal 8-15 [facility] Comment on above: Order Comment: Speci men Type: BLOOD SPECIMENOrdering Facility: [facility] Address: [address] [place] [address] Performed By: #### 2 4321-2, 2777-1, 10705-5, 1987- ####[facility] LABCLIA [id number] [place] [address], [place] [address] [place] Calcium [Mass/Vol] 8.4 mg/dL Low 8.5-10.2 [facility] Comment on above: Order Comment: Speci men Type: BLOOD SPECIMENOrdering Facility: [facility] Address: [address] [place], [place] [address] Performed By: #### 2 4321-2, 27705-07, , 1988-03 ####[facility] LABCLIA [id number] [address] [address] [place] Chloride [Moles/Vol] 106 mmol/L Normal 98-107 [facility] Comment on above: Order Comment: Speci men Type: BLOOD SPECIMENOrdering Facility: [facility] Address: [address] [place], [place] [address] Performed By: #### 2 4321-2, 2776-11, , 1988-03 ####[facility] LABCLIA [id number] [place] [id number] [place] CO2 [Moles/Vol] 17 mmol/L Low 22-30 [facility] Comment on above: Order Comment: Speci men Type: BLOOD SPECIMENOrdering Facility: [facility] Address: [address] [place], [place] [address] Performed By: #### 2 4321-2, 27705-07, , 1988-03 ####[facility] LABCLIA [id number] [address] [address] [place] Creatinine [Mass/Vol] 0.95 mg/dL Normal 0.73-1.22 [facility] Comment on above: Order Comment: Speci men Type: BLOOD SPECIMENOrdering Facility: [facility] Address: [address] [place], [place] [address] Performed By: #### 2 4321-2, 27705-07, , 1988-03 ####[facility] LABCLIA [id number] [place] [address] [place] eGFRcr SerPlBld CKD-EPI 2020 85 mL/min/1.73m??? Normal >=60 [facility] Comment on above: Order Comment: Ella rosenberg Type: BLOOD SPECIMENOrdering Facility: [facility] Address: [address] [place] [address] Result Comment: Rossy mated Glomerular Filtration Rate [...] actual GFR. Performed By: #### 2 4321-2, 2776-, , 1988-03 ####[facility] LABCLIA [id number] [place] [id number] [place] Glucose [Mass/Vol] 96 mg/dL Normal 74-99 [facility] Comment on above: Order Comment: Ella rosenberg Type: BLOOD SPECIMENOrdering Facility: [facility] Address: [address] [place] [address] Result Comment: The [place] Diabetes Association (ADA) provides guidance for cutoff [...] Standards of Medical Care in Diabetes 2016, [place] Diabetes Association. Diabetes Care. 2016.39(Suppl 1). Performed By: #### 2 4321-2, 2777-, , 1988-03 ####[facility] LABCLIA [id number] [address] [address] [place] Potassium [Moles/Vol] 4.3 mmol/L Normal 3.7-5.1 [facility] Comment on above: Order Comment: Speci men Type: BLOOD SPECIMENOrdering Facility: [facility] Address: [address] [place], [place] [address] Performed By: #### 2 4321-2, 2776-1, , 1988-03 ####[facility] LABCLIA [id number] [place] [id number] [place] Sodium [Moles/Vol] 135 mmol/L Low 136-144 [facility] Comment on above: Order Comment: Speci men Type: BLOOD SPECIMENOrdering Facility: [facility] Address: [address] [place] [address] Performed By: #### 2 4321-2, 2776-, , 1988-03 ####[facility] LABCLIA [id number] [place] [address] [place] Urea nitrogen [Mass/Vol] 26 mg/dL High 9-24 [facility] Comment on above: Order Comment: Speci men Type: BLOOD SPECIMENOrdering Facility: [facility] Address: [address] [place] [address] Performed By: #### 2 4321-2, 27705-07, , 1988-03 ####[facility] LABCLIA [id number] [place] [id number] [place] CBC W Auto Differential pane l (Bld)on 08-08-2025 Basophils (Bld) [#/Vol] 10*3/uL Normal <0.11 [facility] Comment on above: Order Comment: Speci men Type: BLOOD SPECIMENOrdering Facility: [facility] Address: [address] [place] [address] Performed By: #### 5 7021-8 ####[facility] LABCLIA [id number] [place] [id number] [place] Basophils/100 WBC (Bld) 0.3 % Normal [facility] Comment on above: Order Comment: Speci men Type: BLOOD SPECIMENOrdering Facility: [facility] Address: [address] [place] [address] Performed By: #### 5 7021-8 ####[facility] LABCLIA [id number] [facility] [place] [address] [place] Differential cell count method Nom (Bld) Auto Normal [facility] Comment on above: Order Comment: Speci men Type: BLOOD SPECIMENOrdering Facility: [facility] Address: [address] [place] [address] Performed By: #### 5 7021-8 ####[facility] LABCLIA [id number] [place] [address] [place] Eosinophils (Bld) [#/Vol] 0.06 10*3/uL Normal <0.46 [facility] Comment on above: Order Comment: Speci men Type: BLOOD SPECIMENOrdering Facility: [facility] Address: [address] [place] [address] Performed By: #### 5 7021-8 ####[facility] LABCLIA [id number] [address] [place] [facility] Eosinophils/100 WBC (Bld) 0.8 % Normal [facility] Comment on above: Order Comment: Speci men Type: BLOOD SPECIMENOrdering Facility: [facility] Address: [address] [place] [address] Performed By: #### 5 7021-8 ####[facility] LABCLIA [id number] [place] [address] [place] Erythrocyte distribution width (RBC) [Ratio] 14.1 % Normal 11.5-15.0 [facility] Comment on above: Order Comment: Speci men Type: BLOOD SPECIMENOrdering Facility: [facility] Address: [address] [place] [address] Performed By: #### 5 7021-8 ####[facility] LABCLIA [id number] [place] [address] [place] Hematocrit (Bld) [Volume fraction] 35.3 % Low 39.0-51.0 [facility] Comment on above: Order Comment: Speci men Type: BLOOD SPECIMENOrdering Facility: [facility] Address: [address] [place] [address] Performed By: #### 5 7021-8 ####[facility] LABCLIA [id number] [place] [address] [place] Hemoglobin (Bld) [Mass/Vol] 11.3 g/dL Low 13.0-17.0 [facility] Comment on above: Order Comment: Speci men Type: BLOOD SPECIMENOrdering Facility: [facility] Address: [address] [place] [address] Performed By: #### 5 7021-8 ####[facility] LABIA [id number] [place] [address] [place] Immature granulocytes (Bld) [#/Vol] 0.03 10*3/uL Normal <0.10 [facility] Comment on above: Order Comment: Speci men Type: BLOOD SPECIMENOrdering Facility: [facility] Address: [address] [place] [address] Performed By: #### 5 7021-8 ####[facility] LABIA [id number] [place] [address] [place] Immature granulocytes/100 WBC (Bld) 0.4 % Normal [facility] Comment on above: Order Comment: Speci men Type: BLOOD SPECIMENOrdering Facility: [facility] Address: [address] [place] [address] Performed By: #### 5 7021-8 ####[facility] LABIA [id number] [place] [id number] [place] Lymphocytes (Bld) [#/Vol] 0.50 10*3/uL Low 1.00-4.00 [facility] Comment on above: Order Comment: Speci men Type: BLOOD SPECIMENOrdering Facility: [facility] Address: [address] [place] [address] Performed By: #### 5 7021-8 ####[facility] LABCLIA [id number] [place] [address] [place] Lymphocytes/100 WBC (Bld) 6.4 % Normal [facility] Comment on above: Order Comment: Speci men Type: BLOOD SPECIMENOrdering Facility: [facility] Address: [address] [place] [address] Performed By: #### 5 7021-8 ####[facility] LABIA [id number] [place] [address] [place] MCH (RBC) [Entitic mass] 32.5 pg Normal 26.0-34.0 [facility] Comment on above: Order Comment: Speci men Type: BLOOD SPECIMENOrdering Facility: [facility] Address: [address] [place] [address] Performed By: #### 5 7021-8 ####[facility] LABIA [id number] [address] [place] MCHC (RBC) [Mass/Vol] 32.0 g/dL Normal 30.5-36.0 [facility] Comment on above: Order Comment: Speci men Type: BLOOD SPECIMENOrdering Facility: [facility] Address: [address] [place] [address] Performed By: #### 5 7021-8 ####[facility] LABIA [id number] [place] [address] [place] MCV (RBC) [Entitic vol] 101.4 fL High 80.0-100.0 [facility] Comment on above: Order Comment: Speci men Type: BLOOD SPECIMENOrdering Facility: [facility] Address: [address] [place] [address] Performed By: #### 5 7021-8 ####[facility] LABCLIA [id number] [address], [place] [address] [place] Monocytes (Bld) [#/Vol] 0.53 10*3/uL Normal <0.87 [facility] Comment on above: Order Comment: Speci men Type: BLOOD SPECIMENOrdering Facility: [facility] Address: [address] [place] [address] Performed By: #### 5 7021-8 ####[facility] LABCLIA [id number] [place] [address] [place] Monocytes/100 WBC (Bld) 6.7 % Normal [facility] Comment on above: Order Comment: Speci men Type: BLOOD SPECIMENOrdering Facility: [facility] Address: [address] [place] [address] Performed By: #### 5 7021-8 ####[facility] LABCLIA [id number] [address], [place] [address] [place] Neutrophils (Bld) [#/Vol] 6.73 10*3/uL Normal 1.45-7.50 [facility] Comment on above: Order Comment: Speci men Type: BLOOD SPECIMENOrdering Facility: [facility] Address: [address] [place] [address] Performed By: #### 5 7021-8 ####[facility] LABCLIA [id number] [place] [id number] [place] Neutrophils/100 WBC (Bld) 85.4 % Normal [facility] Comment on above: Order Comment: Speci men Type: BLOOD SPECIMENOrdering Facility: [facility] Address: [address] [place] [address] Performed By: #### 5 7021-8 ####[facility] LABCLIA [id number] [place] [address] [place] Nucleated RBC (Bld) [#/Vol] 10*3/uL Normal <0.01 [facility] Comment on above: Order Comment: Speci men Type: BLOOD SPECIMENOrdering Facility: [facility] Address: [address] [place] [address] Performed By: #### 5 7021-8 ####[facility] LABCLIA [id number] [place] [address] [place] Nucleated RBC/100 WBC (Bld) [Ratio] 0.0 /100 WBC Normal [facility] Comment on above: Order Comment: Speci men Type: BLOOD SPECIMENOrdering Facility: [facility] Address: [address] [place] [address] Performed By: #### 5 7021-8 ####[facility] LABCLIA [id number] [place] [address] [place] Platelet mean volume (Bld) [Entitic vol] 11.8 fL Normal 9.0-12.7 [facility] Comment on above: Order Comment: Speci men Type: BLOOD SPECIMENOrdering Facility: [facility] Address: [address] [place] [address] Performed By: #### 5 7021-8 ####[facility] LABIA [id number] [place] [address] [place] Platelets (Bld) [#/Vol] 126 10*3/uL Low 150-400 [facility] Comment on above: Order Comment: Speci men Type: BLOOD SPECIMENOrdering Facility: [facility] Address: [address] [place] [address] Performed By: #### 5 7021-8 ####[facility] LABCLIA [id number] [place] [id number] [place] RBC (Bld) [#/Vol] 3.48 10*6/uL Low 4.20-6.00 [facility] Comment on above: Order Comment: Speci men Type: BLOOD SPECIMENOrdering Facility: [facility] Address: [address] [place] [address] Performed By: #### 5 7021-8 ####[facility] LABCLIA [id number] [place] [id number] [place] WBC (Bld) [#/Vol] 7.87 10*3/uL Normal 3.70-11.00 [facility] Comment on above: Order Comment: Speci men Type: BLOOD SPECIMENOrdering Facility: [facility] Address: [address] [place] [address] Performed By: #### 5 7021-8 ####[facility] LABCLIA [id number] [address] [place] CNDSon 08-08-2025 CNDS HNO ID: [id number] Author: EL ARNETT MD Service: General Surgery [...] PATIENT CONDITION AT DISCHARGE: Stable DISCHARGE DISPOSITION: Shelter Facility Discharge Physical Exam: VITAL SIGNS: BP 109/69 Pulse 70 Temp 36.4 ?C (97.5 ?F) (Axillary) Resp 15 Ht 175.3 cm (5' 9.02) Wt 78 kg (171 lb 15.3 oz) [...] pain medications. Before driving, sit in the stake driver's seat and road test yourself. Be sure that you can operate [...] (more content not included)... Normal [facility] CRP SerPl-mCncon 08-08-2025 CRP [Mass/Vol] 1.6 mg/dL High <0.9 [facility] Comment on above: Order Comment: Speci men Type: BLOOD SPECIMENOrdering Facility: [facility] Address: [address] [place] [address] Performed By: #### 2 4321-2, 2777-1, 86955-0, 1987- ####[facility] [id number] [address] [address] [place] Magnesium [facility]-ncon 08-08 Magnesium [Mass/Vol] 2.0 mg/dL Normal 1.7-2.3 [facility] Comment on above: Order Comment: Speci men Type: BLOOD SPECIMENOrdering Facility: [facility] Address: [address] [place] [address] Performed By: #### 2 4321-2, 277-1, , 1988-03 ####[facility] [id number] [place] [id number] [place] [facility] Phosphate [Mass/Vol] 2.2 mg/dL Low 2.7-4.8 [facility] Comment on above: Order Comment: Speci men Type: BLOOD SPECIMENOrdering Facility: [facility] Address: [address] [place] [address] Performed By: #### 2 4321-2, 2777-, , 1988-03 ####[facility] [id number] [place] [id number] [place] ANES POSTPROC EVALon 025 ANES POSTPROC EVAL HNO ID: [id number] Author: MADHURI MCBRIDE MD Service: ? Author Type: Anesthesiologist Type: Anesthesia Postprocedure Evaluation Filed: 08/07/2025 13:55 Note Text: POST ANESTHESIA EVALUATION NOTE : 1950 Procedure Summary Date: 08/07/25 Room / Location: [address] [facility] Anesthesia Start: 1044 Anesthesia Stop: 1354 Procedure: [...] August 07, 2025 TIME: 1:54 PM CSN: [id number] Normal [facility] ANES PRE-OPon 08-07-2025 ANES PRE-OP HNO ID: [id number] Author: MADHURI MCBRIDE MD Service: ? Author [...] Height as of 07/17/25: 175.3 cm (5' 9). Weight as of 07/30/25: 78 kg (172 [...] (more content not included)... Normal [facility] BRIEF OP NOTon 08-07-2025 BRIEF OP NOT HNO ID: [id number] Author: EMA RAMAN MD Service: General Surgery Author Type: Fellow Type: Brief Op Note Filed: 08/07/2025 13:07 Note Text: BRIEF OPERATIVE / PROCEDURE NOTE LOG ID: [id number] SURGERY/PROCEDURE DATE: 08/07/2025 INCISION/PROCEDURE START TIME: 11:52 AM INCISION CLOSE/PROCEDURE END TIME: SURGEON(S)/PROCEDURALIST(S ) AND LENS BLOCKER(S): Surgeons and Role: * El Arnett MD [...] 2025 TIME: 1:05 PM Normal [facility] OPERATIVE NOon 08-07-2025 OPERATIVE NO HNO ID: [id number] Author: EL ARNETT MD Service: General Surgery Author Type: Physician Type: Operative Report Filed: 08/09/2025 12:07 Note Text: OPERATIVE/PROCEDURE REPORT LOG ID: [id number] Surgery/Procedure Date: 08/07/2025 Incision/Procedure Start Time: 11:52 AM Incision Close/Procedure End Time: 13:07PM Surgeon(s)/Proceduralist(s ) and Carpenter Form(s): Surgeons and Role: * El Arnett MD - Primary * Ema Raman MD - Fellow No Additional Staff Please note, there was no available qualified resident. Dr. Raman was my first aid attendant given the complexity of the hernia sac [...] a hypoglycemic coma? 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 Normal [facility] CBC W Auto Differential pane l (Bld)on 07-30-2025 Basophils (Bld) [#/Vol] 0.03 10*3/uL Normal <0.11 [facility] Comment on above: Order Comment: Speci men Type: BLOOD SPECIMENOrdering Facility: [facility] Address: [address] [place] [address] Performed By: #### 5 7021-8 ####[facility] LABCLIA [id number] [address] [place] Basophils/100 WBC (Bld) 0.4 % Normal [facility] Comment on above: Order Comment: Speci men Type: BLOOD SPECIMENOrdering Facility: [facility] Address: [address] [place] [address] Performed By: #### 5 7021-8 ####[facility] LABCLIA [id number] [place] [address] [place] Differential cell count method Nom (Bld) Auto Normal [facility] Comment on above: Order Comment: Speci men Type: BLOOD SPECIMENOrdering Facility: [facility] Address: [address] [place] [address] Performed By: #### 5 7021-8 ####[facility] LABCLIA [id number] [place] [address] [place] Eosinophils (Bld) [#/Vol] 0.21 10*3/uL Normal <0.46 [facility] Comment on above: Order Comment: Speci men Type: BLOOD SPECIMENOrdering Facility: [facility] Address: [address] [place] [address] Performed By: #### 5 7021-8 ####[facility] LABCLIA [id number] [address] [place] Eosinophils/100 WBC (Bld) 3.0 % Normal [facility] Comment on above: Order Comment: Speci men Type: BLOOD SPECIMENOrdering Facility: [facility] Address: [address] [place] [address] Performed By: #### 5 7021-8 ####[facility] LABCLIA [id number] [place] [address] [place] Erythrocyte distribution width (RBC) [Ratio] 14.5 % Normal 11.5-15.0 [facility] Comment on above: Order Comment: Speci men Type: BLOOD SPECIMENOrdering Facility: [facility] Address: [address] [place], [place] [address] Performed By: #### 5 7021-8 ####[facility] LABCLIA [id number] [place] [address] [place] Hematocrit (Bld) [Volume fraction] 38.2 % Low 39.0-51.0 [facility] Comment on above: Order Comment: Speci men Type: BLOOD SPECIMENOrdering Facility: [facility] Address: [address] [place] [address] Performed By: #### 5 7021-8 ####[facility] LABIA [id number] [place] [address] [place] Hemoglobin (Bld) [Mass/Vol] 12.3 g/dL Low 13.0-17.0 [facility] Comment on above: Order Comment: Speci men Type: BLOOD SPECIMENOrdering Facility: [facility] Address: [address] [place] [address] Performed By: #### 5 7021-8 ####[facility] LABIA [id number] [place] [address] [place] Immature granulocytes (Bld) [#/Vol] 0.06 10*3/uL Normal <0.10 [facility] Comment on above: Order Comment: Speci men Type: BLOOD SPECIMENOrdering Facility: [facility] Address: [address] [place] [address] Performed By: #### 5 7021-8 ####[facility] LABIA [id number] [place] [address] [place] Immature granulocytes/100 WBC (Bld) 0.9 % Normal [facility] Comment on above: Order Comment: Speci men Type: BLOOD SPECIMENOrdering Facility: [facility] Address: [address] [place] [address] Performed By: #### 5 7021-8 ####[facility] LABCLIA [id number] [place] [id number] [place] Lymphocytes (Bld) [#/Vol] 0.51 10*3/uL Low 1.00-4.00 [facility] Comment on above: Order Comment: Speci men Type: BLOOD SPECIMENOrdering Facility: [facility] Address: [address] [place] [address] Performed By: #### 5 7021-8 ####[facility] LABCLIA [id number] [place] [address] [place] Lymphocytes/100 WBC (Bld) 7.3 % Normal [facility] Comment on above: Order Comment: Speci men Type: BLOOD SPECIMENOrdering Facility: [facility] Address: [address] [place] [address] Performed By: #### 5 7021-8 ####[facility] LABIA [id number] [place] [address] [place] MCH (RBC) [Entitic mass] 32.2 pg Normal 26.0-34.0 [facility] Comment on above: Order Comment: Speci men Type: BLOOD SPECIMENOrdering Facility: [facility] Address: [address] [place] [address] Performed By: #### 5 7021-8 ####[facility] LABIA [id number] [place] [address] [place] MCHC (RBC) [Mass/Vol] 32.2 g/dL Normal 30.5-36.0 [facility] Comment on above: Order Comment: Speci men Type: BLOOD SPECIMENOrdering Facility: [facility] Address: [address] [place] [address] Performed By: #### 5 7021-8 ####[facility] LABCLIA [id number] [address] [place] MCV (RBC) [Entitic vol] 100.0 fL Normal 80.0-100.0 [facility] Comment on above: Order Comment: Speci men Type: BLOOD SPECIMENOrdering Facility: [facility] Address: [address] [place] [address] Performed By: #### 5 7021-8 ####[facility] LABCLIA [id number] [place] [address] [place] Monocytes (Bld) [#/Vol] 0.44 10*3/uL Normal <0.87 [facility] Comment on above: Order Comment: Speci men Type: BLOOD SPECIMENOrdering Facility: [facility] Address: [address] [place] [address] Performed By: #### 5 7021-8 ####[facility] LABCLIA [id number] [place] [address] [place] Monocytes/100 WBC (Bld) 6.3 % Normal [facility] Comment on above: Order Comment: Speci men Type: BLOOD SPECIMENOrdering Facility: [facility] Address: [address] [place] [address] Performed By: #### 5 7021-8 ####[facility] LABCLIA [id number] [place] [address] [place] Neutrophils (Bld) [#/Vol] 5.71 10*3/uL Normal 1.45-7.50 [facility] Comment on above: Order Comment: Speci men Type: BLOOD SPECIMENOrdering Facility: [facility] Address: [address] [place] [address] Performed By: #### 5 7021-8 ####[facility] LABCLIA [id number] [place] [id number] [place] Neutrophils/100 WBC (Bld) 82.1 % Normal [facility] Comment on above: Order Comment: Speci men Type: BLOOD SPECIMENOrdering Facility: [facility] Address: [address] [place] [address] Performed By: #### 5 7021-8 ####[facility] LABCLIA [id number] [place] [address] [place] Nucleated RBC (Bld) [#/Vol] 10*3/uL Normal <0.01 [facility] Comment on above: Order Comment: Speci men Type: BLOOD SPECIMENOrdering Facility: [facility] Address: [address] [place] [address] Performed By: #### 5 7021-8 ####[facility] LABCLIA [id number] [place] [address] [place] Nucleated RBC/100 WBC (Bld) [Ratio] 0.0 /100 WBC Normal [facility] Comment on above: Order Comment: Speci men Type: BLOOD SPECIMENOrdering Facility: [facility] Address: [address] [place] [address] Performed By: #### 5 7021-8 ####[facility] LABCLIA [id number] [place] [address] [place] Platelet mean volume (Bld) [Entitic vol] 11.0 fL Normal 9.0-12.7 [facility] Comment on above: Order Comment: Speci men Type: BLOOD SPECIMENOrdering Facility: [facility] Address: [address] [place] [address] Performed By: #### 5 7021-8 ####[facility] LABIA [id number] [place] [address] [place] Platelets (Bld) [#/Vol] 150 10*3/uL Normal 150-400 [facility] Comment on above: Order Comment: Speci men Type: BLOOD SPECIMENOrdering Facility: [facility] Address: [address] [place] [address] Performed By: #### 5 7021-8 ####[facility] LABCLIA [id number] [place] [address] [place] RBC (Bld) [#/Vol] 3.82 10*6/uL Low 4.20-6.00 [facility] Comment on above: Order Comment: Speci men Type: BLOOD SPECIMENOrdering Facility: [facility] Address: [address] [place] [address] Performed By: #### 5 7021-8 ####[facility] LABIA [id number] [place] [address] [place] WBC (Bld) [#/Vol] 6.96 10*3/uL Normal 3.70-11.00 [facility] Comment on above: Order Comment: Speci men Type: BLOOD SPECIMENOrdering Facility: [facility] Address: [address] [place] [address] Performed By: #### 5 7021-8 ####[facility] LABIA [id number] [address] [place] CNOVon 07-30-2025 CNOV Office Visit (PMNA11 ) -- STEPH BAUMANN ([id number]) 1950 M Date Time Provider Department 07/30/25 [...] s/p 2018, AFIB on apixaban (followed at [facility]), prostate cancer s/p radiation therapy 2021, on [...] 0.7 Rheumatoid Factor No results found for: RF TSH TSH Date Value 05/09/2024 2.570 mIU/L [...] (more content not included)... Normal [facility] Comprehensive metabolic 2000 panelon 07-30-2025 Albumin [Mass/Vol] 4.0 g/dL Normal 3.9-4.9 [facility] Comment on above: Order Comment: Speci men Type: BLOOD SPECIMENOrdering Facility: [facility] Address: [address] [place] [address] Performed By: #### 3 3762-6, 80562-5 ####[facility] LABCLIA [id number] [place] [address] [place] ALP [Catalytic activity/Vol] 62 U/L Normal 38-113 [facility] Comment on above: Order Comment: Speci men Type: BLOOD SPECIMENOrdering Facility: [facility] Address: [address] [place] [address] Performed By: #### 3 3762-6, ####[facility] LABIA [id number] [place] [address] [place] ALT [Catalytic activity/Vol] U/L Low 10-54 [facility] Comment on above: Order Comment: Speci men Type: BLOOD SPECIMENOrdering Facility: [facility] [facility] Address: [address] [place] [address] Performed By: #### 3 3762-6, ####[facility] LABCLIA [id number] [place] [id number] [place] Anion gap [Moles/Vol] 13 mmol/L Normal 8-15 [facility] Comment on above: Order Comment: Speci men Type: BLOOD SPECIMENOrdering Facility: [facility] Address: [address] [place], [place] [address] Performed By: #### 3 3762-6, ####[facility] LABCLIA [id number] [place] [id number] [place] AST [Catalytic activity/Vol] 9 U/L Low 14-40 [facility] Comment on above: Order Comment: Speci men Type: BLOOD SPECIMENOrdering Facility: [facility] Address: [address] [place] [address] Performed By: #### 3 3762-6, ####[facility] LABCLIA [id number] [place] [address] [place] Bilirubin [Mass/Vol] 0.4 mg/dL Normal 0.2-1.3 [facility] Comment on above: Order Comment: Speci men Type: BLOOD SPECIMENOrdering Facility: [facility] Address: [address] [place] [address] Performed By: #### 3 3762-6, ####[facility] LABCLIA [id number] [place] [address] [place] Calcium [Mass/Vol] 8.8 mg/dL Normal 8.5-10.2 [facility] Comment on above: Order Comment: Speci men Type: BLOOD SPECIMENOrdering Facility: [facility] Address: [address] [place] [address] Performed By: #### 3 3762-6, ####[facility] LABIA [id number] [place] [id number] [place] Chloride [Moles/Vol] 107 mmol/L Normal 98-107 [facility] Comment on above: Order Comment: Speci men Type: BLOOD SPECIMENOrdering Facility: [facility] Address: [address] [place], [place] [address] Performed By: #### 3 3762-6, 86345-9 ####[facility] LABCLIA [id number] [address] [address] [place] CO2 [Moles/Vol] 20 mmol/L Low 22-30 [facility] Comment on above: Order Comment: Speci men Type: BLOOD SPECIMENOrdering Facility: [facility] Address: [address] [place] [address] Performed By: #### 3 3762-6, 25914-4 ####[facility] LABCLIA [id number] [address] [address] [place] Creatinine [Mass/Vol] 1.08 mg/dL Normal 0.73-1.22 [facility] Comment on above: Order Comment: Speci men Type: BLOOD SPECIMENOrdering Facility: [facility] Address: [address] [place] [address] Performed By: #### 3 3762-6, 03241-8 ####[facility] LABIA [id number] [place] [id number] [place] eGFRcr SerPlBld CKD-EPI 2020 72 mL/min/1.73m??? Normal >=60 [facility] Comment on above: Order Comment: Speci men Type: BLOOD SPECIMENOrdering Facility: [facility] Address: [address] [place] [address] Result Comment: Rossy mated Glomerular Filtration Rate [...] reflect actual GFR. Performed By: #### 3 3762-6, 27691-0 ####[facility] LABCLIA [id number] [address] [address] [place] Glucose [Mass/Vol] 147 mg/dL High 74-99 [facility] Comment on above: Order Comment: Speci men Type: BLOOD SPECIMENOrdering Facility: [facility] Address: [address] [place] [address] Result Comment: The [place] Diabetes Association (ADA) provides guidance for cutoff [...] Standards of Medical Care in Diabetes 2016, [place] [employer]. Diabetes Care. 2016.39(Suppl 1). Performed By: #### 3 3762-6, ####[facility] LABCLIA [id number] [place] [address] [place] Potassium [Moles/Vol] 4.3 mmol/L Normal 3.7-5.1 [facility] Comment on above: Order Comment: Ella rosenberg Type: BLOOD SPECIMENOrdering Facility: [facility] Address: [address] [place] [address] Performed By: #### 3 3762-6, ####[facility] LABCLIA [id number] [place] [address] [place] Protein [Mass/Vol] 7.3 g/dL Normal 6.3-8.0 [facility] Comment on above: Order Comment: Ella rosenberg Type: BLOOD SPECIMENOrdering Facility: [facility] Address: [address] [place] [address] Performed By: #### 3 3762-6, ####[facility] LABCLIA [id number] [place] [id number] [place] Sodium [Moles/Vol] 140 mmol/L Normal 136-144 [facility] Comment on above: Order Comment: Speci men Type: BLOOD SPECIMENOrdering Facility: [facility] Address: [address] [place] [id number] Performed By: #### 3 3762-6, 83263-8 ####[facility] LABCLIA [id number] [address] [address] [place] Urea nitrogen [Mass/Vol] 21 mg/dL Normal 07-31 [facility] Comment on above: Order Comment: Speci men Type: BLOOD SPECIMENOrdering Facility: [facility] Address: [address] [place], [place] [address] Performed By: #### 3 3762-6, 02618-1 ####[facility] LABCLIA [id number] [place] [id number] [place] LUNG DIFFUSION CAPACITY (SYED O)on 07-30-2025 LUNG DIFFUSION CAPACITY (DLCO) [address], [address] Test Date: 2025-07-30 Pat Name: STEPH BAUMANN Department: Room: Gender: Male De Alcoholizer: : 1950 Requested By: Order Number: [id number] Reading MD: Gladys Bolivar MD Interpretive Statements [...] 22:39:36 EDT by Gladys Bolivar MD ID: [id number] Name: STEPH BAUMANN Race: Black or Ht: 68.00 in Wt: 172.00 lbs Age: 75 Gender: Male : 1950 Dx: Pulmonary hypertension, unspecified Smoking Hx: Non-smoker Doctor: SKYLAR SEYMOUR Test Date: 07/30/2025 Site: [facility] Tech: Saida Covarrubias PRE-BRONCH POST-BRONCH Carol LLN Pred ULN %Pred ZScore Carol %Pred %Chg ZScore SPIROMETRY FVC 2.45 2.72 3.67 4.63 66 -2.13 FEV1 1.93 2.01 2.77 3.48 69 -1.83 FEV1/FVC 0.79 0.63 0.77 0.88 102 0.27 FEFMax 3.90 4.89 7.39 9.90 52 -2.29 FEF50 2.81 1.47 3.60 5.72 78 -0.61 FIF50 0.63 FEF50/FIF50 4.43 90-100 FIVC 0.29 QNZ86-86 1.65 0.65 1.91 3.83 86 -0.28 ExpiredTime [...] DLCO is hemoglobin corrected. Hemoglobin obtained from [facility] on 07/17/2025. Height given by patient. Pt wheelchair bound. Pt unable to extend arms for arm span. // LD Normal [facility] NT-proBNP [facility] 07-30 Natriuretic peptide.B prohormone N-Terminal [Mass/Vol] 1601 pg/mL High <125 [facility] Comment on above: Order Comment: Speci men Type: BLOOD SPECIMENOrdering Facility: [facility] Address: [address] [place] [address] Performed By: #### 3 3762-6, 01620-5 ####[facility] LABCLIA [id number] [place] [address] [place] SPIROMETRY WITH DILATOR IF O BSTRUCTEDon 07-30-2025 SPIROMETRY WITH DILATOR IF OBSTRUCTED [facility] [address] [place], [address] Test Date: 2025-07-30 Pat Name: STEPH BAUMANN Department: Room: Gender: Male De Alcoholizer: : 1950 Requested By: Order Number: [id number] Reading MD: Gladys Bolivar MD Interpretive Statements [...] 22:39:36 EDT by Gladys Bolivar MD ID: [id number] Name: STEPH BAUMANN Race: Black or Ht: 68.00 in Wt: 172.00 lbs Age: 75 Gender: Male : 1950 Dx: Pulmonary hypertension, unspecified Smoking Hx: Non-smoker Doctor: SKYLAR SEYMOUR Test Date: 07/30/2025 Site: Tech: Saida Covarrubias PRE-BRONCH POST-BRONCH Carol LLN Pred ULN %Pred ZScore Carol %Pred %Chg ZScore SPIROMETRY FVC 2.45 2.72 3.67 4.63 66 -2.13 FEV1 1.93 2.01 2.77 3.48 69 -1.83 FEV1/FVC 0.79 0.63 0.77 0.88 102 0.27 FEFMax 3.90 4.89 7.39 9.90 52 -2.29 FEF50 2.81 1.47 3.60 5.72 78 -0.61 FIF50 0.63 FEF50/FIF50 4.43 90-100 FIVC 0.29 QJQ36-69 1.65 0.65 1.91 3.83 86 -0.28 ExpiredTime [...] DLCO is hemoglobin corrected. Hemoglobin obtained from [facility] on 07/17/2025. Height given by patient. [...] 77 % FEV1/FVC_LLN (%) : 63 % UKH39_BMG (L/S) : 3.49 L/S XJW83_DPL (L/S) : 0.20 L/S RZE85_XHRN (L/S) : 0.43 L/S GSY76_IFN (L/S) : 0.13 L/S ISL78_HZD (L/S) : 1.29 L/S MLY82-96%_PRE (L/S) : 1.65 L/S YBC30-50%_PRED (L/S) : 1.91 L/S TZU47-54%_LLN (L/S) : 0.65 L/S PEF_PRE (L/S) : [...] (ML/MIN/MMHG/L) : 0.04 ml/min/mmHg/L Normal [facility] XR CHEST 2V FRONTAL/LATon XR CHEST 2V FRONTAL/LAT * * *Final [...] is noted. IMPRESSION: No acute radiographic abnormality. Cushion Mat Maker: PSCB Transcribe Date/Time: Jul 30 2025 1:50P Dictated by : SHE PENALOZA MD This examination was interpreted and the report reviewed and electronically signed by: SHE PENALOZA MD on Jul 30 2025 1:51PM EST [id number] [facility] STEPH BAUMANN ([id number]) 1950 M Date Time Provider Department [facility] today, we recorded the following information about you: Luz Elena Snell 07/19/2025 8:57 AM Signed P.O.A called in Please call [phone] to discuss lab/test results Luz Elena Snell Publication Distributor Mayra Hinton RN 07/19/2025 10:05 AM Signed [...] (more content not included)... Normal [facility] CBC W Auto Differential pane l (Bld)on 07-17-2025 Basophils (Bld) [#/Vol] 0.04 10*3/uL Normal <0.11 [facility] Comment on above: Order Comment: Speci men Type: BLOOD SPECIMENOrdering Facility: [facility] Address: [address] [place] [address] Performed By: #### 5 7021-8 ####[facility] LABIA [id number] [place] [address] [place] Basophils/100 WBC (Bld) 0.7 % Normal [facility] Comment on above: Order Comment: Speci men Type: BLOOD SPECIMENOrdering Facility: [facility] Address: [address] [place] [address] Performed By: #### 5 7021-8 ####[facility] LABCLIA [id number] [place] [id number] [place] Differential cell count method Nom (Bld) Auto Normal [facility] Comment on above: Order Comment: Speci men Type: BLOOD SPECIMENOrdering Facility: [facility] Address: [address] [place] [address] Performed By: #### 5 7021-8 ####[facility] LABIA [id number] [place] [address] [place] Eosinophils (Bld) [#/Vol] 0.28 10*3/uL Normal <0.46 [facility] Comment on above: Order Comment: Speci men Type: BLOOD SPECIMENOrdering Facility: [facility] Address: [address] [place] [address] Performed By: #### 5 7021-8 ####[facility] LABCLIA [id number] [place] [address] [place] Eosinophils/100 WBC (Bld) 4.8 % Normal [facility] Comment on above: Order Comment: Speci men Type: BLOOD SPECIMENOrdering Facility: [facility] Address: [address] [place] [address] Performed By: #### 5 7021-8 ####[facility] LABCLIA [id number] [place] [address] [place] Erythrocyte distribution width (RBC) [Ratio] 14.5 % Normal 11.5-15.0 [facility] Comment on above: Order Comment: Speci men Type: BLOOD SPECIMENOrdering Facility: [facility] Address: [address] [place] [address] Performed By: #### 5 7021-8 ####[facility] LABCLIA [id number] [place] [address] [place] Hematocrit (Bld) [Volume fraction] 38.1 % Low 39.0-51.0 [facility] Comment on above: Order Comment: Speci men Type: BLOOD SPECIMENOrdering Facility: [facility] Address: [address] [place] [address] Performed By: #### 5 7021-8 ####[facility] LABCLIA [id number] [place] [address] [place] Hemoglobin (Bld) [Mass/Vol] 11.8 g/dL Low 13.0-17.0 [facility] Comment on above: Order Comment: Speci men Type: BLOOD SPECIMENOrdering Facility: [facility] Address: [address] [place] [address] Performed By: #### 5 7021-8 ####[facility] LABCLIA [id number] [place] [address] [place] Immature granulocytes (Bld) [#/Vol] 0.06 10*3/uL Normal <0.10 [facility] Comment on above: Order Comment: Speci men Type: BLOOD SPECIMENOrdering Facility: [facility] Address: [address] [place] [address] Performed By: #### 5 7021-8 ####[facility] LABCLIA [id number] [place] [address] [place] Immature granulocytes/100 WBC (Bld) 1.0 % Normal [facility] Comment on above: Order Comment: Speci men Type: BLOOD SPECIMENOrdering Facility: [facility] Address: [address] [place] [address] Performed By: #### 5 7021-8 ####[facility] LABCLIA [id number] [place] [address] [place] Lymphocytes (Bld) [#/Vol] 0.51 10*3/uL Low 1.00-4.00 [facility] Comment on above: Order Comment: Speci men Type: BLOOD SPECIMENOrdering Facility: [facility] Address: [address] [place] [address] Performed By: #### 5 7021-8 ####[facility] LABCLIA [id number] [place] [address] [place] Lymphocytes/100 WBC (Bld) 8.7 % Normal [facility] Comment on above: Order Comment: Speci men Type: BLOOD SPECIMENOrdering Facility: [facility] Address: [address] [place] [address] Performed By: #### 5 7021-8 ####[facility] LABCLIA [id number] [place] [address] [place] MCH (RBC) [Entitic mass] 31.6 pg Normal 26.0-34.0 [facility] Comment on above: Order Comment: Speci men Type: BLOOD SPECIMENOrdering Facility: [facility] Address: [address] [place] [address] Performed By: #### 5 7021-8 ####[facility] LABCLIA [id number] [place] [address] [place] MCHC (RBC) [Mass/Vol] 31.0 g/dL Normal 30.5-36.0 [facility] Comment on above: Order Comment: Speci men Type: BLOOD SPECIMENOrdering Facility: [facility] Address: [address] [place] [address] Performed By: #### 5 7021-8 ####[facility] LABCLIA [id number] [place] [address] [place] MCV (RBC) [Entitic vol] 101.9 fL High 80.0-100.0 [facility] Comment on above: Order Comment: Speci men Type: BLOOD SPECIMENOrdering Facility: [facility] Address: [address] [place] [address] Performed By: #### 5 7021-8 ####[facility] LABIA [id number] [place] [address] [place] Monocytes (Bld) [#/Vol] 0.35 10*3/uL Normal <0.87 [facility] Comment on above: Order Comment: Speci men Type: BLOOD SPECIMENOrdering Facility: [facility] Address: [address] [place] [address] Performed By: #### 5 7021-8 ####[facility] LABCLIA [id number] [place] [address] [place] Monocytes/100 WBC (Bld) 6.0 % Normal [facility] Comment on above: Order Comment: Speci men Type: BLOOD SPECIMENOrdering Facility: [facility] Address: [address] [place] [address] Performed By: #### 5 7021-8 ####[facility] LABCLIA [id number] [address] [address] [place] Neutrophils (Bld) [#/Vol] 4.61 10*3/uL Normal 1.45-7.50 [facility] Comment on above: Order Comment: Speci men Type: BLOOD SPECIMENOrdering Facility: [facility] Address: [address] [place] [address] Performed By: #### 5 7021-8 ####[facility] LABCLIA [id number] [place] [address] [place] Neutrophils/100 WBC (Bld) 78.8 % Normal [facility] Comment on above: Order Comment: Speci men Type: BLOOD SPECIMENOrdering Facility: [facility] Address: [address] [place] [address] Performed By: #### 5 7021-8 ####[facility] LABCLIA [id number] [place] [address] [place] Nucleated RBC (Bld) [#/Vol] 10*3/uL Normal <0.01 [facility] Comment on above: Order Comment: Speci men Type: BLOOD SPECIMENOrdering Facility: [facility] Address: [address] [place] [address] Performed By: #### 5 7021-8 ####[facility] LABCLIA [id number] [place] [id number] [place] Nucleated RBC/100 WBC (Bld) [Ratio] 0.0 /100 WBC Normal [facility] Comment on above: Order Comment: Speci men Type: BLOOD SPECIMENOrdering Facility: [facility] Address: [address] [place] [address] Performed By: #### 5 7021-8 ####[facility] LABCLIA [id number] [address] [address] [place] Platelet mean volume (Bld) [Entitic vol] 11.5 fL Normal 9.0-12.7 [facility] Comment on above: Order Comment: Speci men Type: BLOOD SPECIMENOrdering Facility: [facility] Address: [address] [place] [address] Performed By: #### 5 7021-8 ####[facility] LABCLIA [id number] [place] [id number] [place] Platelets (Bld) [#/Vol] 158 10*3/uL Normal 150-400 [facility] Comment on above: Order Comment: Speci men Type: BLOOD SPECIMENOrdering Facility: [facility] Address: [address] [place] [address] Performed By: #### 5 7021-8 ####[facility] LABIA [id number] [place] [address] [place] RBC (Bld) [#/Vol] 3.74 10*6/uL Low 4.20-6.00 [facility] Comment on above: Order Comment: Speci men Type: BLOOD SPECIMENOrdering Facility: [facility] Address: [address] [place] [address] Performed By: #### 5 7021-8 ####[facility] LABIA [id number] [place] [id number] [place] WBC (Bld) [#/Vol] 5.85 10*3/uL Normal 3.70-11.00 [facility] Comment on above: Order Comment: Speci men Type: BLOOD SPECIMENOrdering Facility: [facility] Address: [address] [place] [address] Performed By: #### 5 7021-8 ####[facility] LABIA [id number] [place] [id number] [place] CNOVon 07-17-2025 CNOV Office Visit (GASTA5 ) -- PASTORSTEPH Godwin ([id number]) 1950 M Date Time Provider Department 07/17/25 [...] pulmonary hypertension is being monitored by his equipment analyst. Diagnostics: (February 2025) CMP: Entirely normal (Today) [...] (97.2 ?F) (Temporal) Ht 175.3 cm (5' 9) Wt 78 kg (172 lb) SpO2 97% [...] Referring Provider (more content not included)... Normal [facility] CNPNon 07-17-2025 CNPN Telephone (MNPACC) -- STEPH BAUMANN ([id number]) 1950 M Date Time Provider Department 07/17/25 [facility] During your visit today, we recorded the [...] (more content not included)... Normal [facility] Comprehensive metabolic 2000 panelon 07-17-2025 Albumin [Mass/Vol] 3.7 g/dL Low 3.9-4.9 [facility] Comment on above: Order Comment: Speci men Type: BLOOD SPECIMENOrdering Facility: [facility] Address: [address] [place] [address] Performed By: #### 2 4323-8 ####[facility] LABCLIA [id number] [place] [address] [place] ALP [Catalytic activity/Vol] 61 U/L Normal 38-113 [facility] Comment on above: Order Comment: Speci men Type: BLOOD SPECIMENOrdering Facility: [facility] Address: [address] [place] [address] Performed By: #### 2 4323-8 ####[facility] LABCLIA [id number] [place] [id number] [place] ALT [Catalytic activity/Vol] U/L Low 10-54 [facility] Comment on above: Order Comment: Speci men Type: BLOOD SPECIMENOrdering Facility: [facility] Address: [address] [place] [address] Result Comment: Resu lt rechecked. Performed By: #### 2 4323-8 ####[facility] LABCLIA [id number] [facility] [address] [address] [place] Anion gap [Moles/Vol] 11 mmol/L Normal 8-15 [facility] Comment on above: Order Comment: Speci men Type: BLOOD SPECIMENOrdering Facility: [facility] Address: [address] [place] [address] Performed By: #### 2 4323-8 ####[facility] LABCLIA [id number] [place] [id number] [place] AST [Catalytic activity/Vol] 12 U/L Low 14-40 [facility] Comment on above: Order Comment: Speci men Type: BLOOD SPECIMENOrdering Facility: [facility] Address: [address] [place] [address] Performed By: #### 2 4323-8 ####[facility] LABCLIA [id number] [place] [address] [place] Bilirubin [Mass/Vol] 0.3 mg/dL Normal 0.2-1.3 [facility] Comment on above: Order Comment: Speci men Type: BLOOD SPECIMENOrdering Facility: [facility] Address: [address] [place] [address] Performed By: #### 2 4323-8 ####[facility] LABCLIA [id number] [place] [address] [place] Calcium [Mass/Vol] 9.2 mg/dL Normal 8.5-10.2 [facility] Comment on above: Order Comment: Speci men Type: BLOOD SPECIMENOrdering Facility: [facility] Address: [address] [place] [address] Performed By: #### 2 4323-8 ####[facility] LABCLIA [id number] [place] [address] [place] Chloride [Moles/Vol] 107 mmol/L Normal 98-107 [facility] Comment on above: Order Comment: Speci men Type: BLOOD SPECIMENOrdering Facility: [facility] Address: [address] [place] [address] Performed By: #### 2 4323-8 ####[facility] LABCLIA [id number] [place] [id number] [place] CO2 [Moles/Vol] 21 mmol/L Low 22-30 [facility] Comment on above: Order Comment: Speci men Type: BLOOD SPECIMENOrdering Facility: [facility] Address: [address] [place] [id number] Performed By: #### 2 4323-8 ####[facility] LABIA [id number] [place] [id number] [place] Creatinine [Mass/Vol] 0.92 mg/dL Normal 0.73-1.22 [facility] Comment on above: Order Comment: Speci men Type: BLOOD SPECIMENOrdering Facility: [facility] Address: [address] [place] [address] Performed By: #### 2 4323-8 ####[facility] LABIA [id number] [place] [address] [place] eGFRcr SerPlBld CKD-EPI 2020 88 mL/min/1.73m??? Normal >=60 [facility] Comment on above: Order Comment: Speci men Type: BLOOD SPECIMENOrdering Facility: [facility] Address: [address] [place] [address] Result Comment: Rossy mated Glomerular Filtration Rate [...] actual GFR. Performed By: #### 2 4323-8 ####[facility] LABIA [id number] [place] [id number] [place] Glucose [Mass/Vol] 111 mg/dL High 74-99 [facility] Comment on above: Order Comment: Speci men Type: BLOOD SPECIMENOrdering Facility: [facility] Address: [address] [place] [address] Result Comment: The [place] Diabetes Association (ADA) provides guidance for cutoff [...] Standards of Medical Care in Diabetes 2016, [place] Diabetes Association. Diabetes Care. 2016.39(Suppl 1). Performed By: #### 2 4323-8 ####[facility] LABCLIA [id number] [place] [address] [place] Potassium [Moles/Vol] 4.5 mmol/L Normal 3.7-5.1 [facility] Comment on above: Order Comment: Speci men Type: BLOOD SPECIMENOrdering Facility: [facility] Address: [address] [place] [address] Performed By: #### 2 4323-8 ####[facility] LABCLIA [id number] [place] [address] [place] Protein [Mass/Vol] 6.8 g/dL Normal 6.3-8.0 [facility] Comment on above: Order Comment: Speci men Type: BLOOD SPECIMENOrdering Facility: [facility] Address: [address] [place] [address] Performed By: #### 2 4323-8 ####[facility] LABCLIA [id number] [place] [id number] [place] Sodium [Moles/Vol] 139 mmol/L Normal 136-144 [facility] Comment on above: Order Comment: Speci men Type: BLOOD SPECIMENOrdering Facility: [facility] Address: [address] [place] [address] Performed By: #### 2 4323-8 ####[facility] LABCLIA [id number] [place] [id number] [place] Urea nitrogen [Mass/Vol] 19 mg/dL Normal 9-24 [facility] Comment on above: Order Comment: Speci men Type: BLOOD SPECIMENOrdering Facility: [facility] Address: [address] [place] [address] Performed By: #### 2 4323-8 ####[facility] LABCLIA [id number] ELVIA MAX [id number] [place] [address] [place] ECG COMPLETEon 07-17-2025 ECG COMPLETE Ventricular Rate : 7 0 BPM QRS Duration : 170 ms Q-T Interval : 468 ms QTC Calculation(Bazett) : 505 ms Calculated R Hammond : 187 degrees Calculated T Hammond : 17 degrees VENTRICULAR PACED RHYTHM ABNORMAL ECG Confirmed by SHERRY CROCKER MD ([id number]) on 08/14/2025 9:21:25 PM NAME : STEPH BAUMANN PID : [id number] : 1950 Gender : Male Race : ORD : [id number] Procedure Date : Jul 17 2025 13:19:[birth year] [...] Acquired by : SHEREE HOGAN [facility] HISTORY PHYSICALon HISTORY PHYSICAL HNO ID: [id number] Author: LUPE RUSHING MD Service: ? Author [...] 30s. Has ICD, gets cardiology care at [place], last ICD check last month per POA [...] cardiology appt prior to OR D/w local [place] [facility] Dr. Gonzáles over phone. Discussed possible med [...] in by DR. Gonzáles and scanned into [facility]. D/w surgeon Dr. Arnett and c/f partial obstruction from large inguinal hernia due symptoms of intermittent vomiting and in case of strangulation/incarceratio n, emergent surgery would be more catastrophic. Called ARVIN Ferraro and updated regarding discussions above. Reiterated risks of major adverse cardiac events perioperatively including but no limited to HI, cardiac arrest and . She verbalized understanding [...] dependent. Clinical Frailty Scale: 7. Severely frail [id number] Score: Age: 65-74 Sex: male CHF history: Yes Hypertension history: Yes Stroke/TIA/thromboembolism history: Yes Vascular disease history: Yes Diabetes history: Yes [id number] Score: 7 ASA Class: 5 I - PHYSICAL EVALUATION AIRWAY Patient intubated: No. Tracheostomy tube not present Mallampati: III. TM distance: >3 FB. Neck ROM: full ROM without neurological symptoms. Mouth openin FB. Short neck: no. Thick neck: no Howard present: (more content not included)... Normal [facility] PT panel Coag (PPP)on 2024 INR Coag (PPP) [Relative time] 1.3 {INR} Normal 0.9-1.3 [facility] Comment on above: Order Comment: Speci men Type: BLOOD SPECIMENOrdering Facility: [facility] Address: [address] [place] [address] Result Comment: Dorothy min K Antagonist (VKA) Therapeutic Range: INR 2 to 3 (Target INR of 2.5) Note: For patients treated with VKA drugs, such as warfarin, the [employer] College [employer]icians 2012 Guideline recommends [...] Chest 2012, 141:7S-47S Pily RA, et al. [facility] 2017, 70: 252-289 Performed By: #### 3 4528-0, 51143-7 ####[facility] LABIA [id number] [place] [address] [place] PT Coag (PPP) [Time] 13.6 s High 9.7-13.0 [facility] Comment on above: Order Comment: Ella rosenberg Type: BLOOD SPECIMENOrdering Facility: [facility] Address: [address] [place] [address] Performed By: #### 3 4528-0, 51261-4 ####[facility] LABIA [id number] [address] [address] [place] TYPE AND SCREEN,30 DAYon ABO O Normal [facility] Comment on above: Order Comment: Ella rosenberg Type: BLOOD SPECIMENOrdering Facility: [facility] Address: [address] [place] [address] Performed By: #### T SCR30 ####[facility] BLOOD BANKIA [id number] [address] STATES OF [facility] Rh Nom (Bld) Positive Normal [facility] Comment on above: Order Comment: Speci men Type: BLOOD SPECIMENOrdering Facility: [facility] Address: [address] [place] [address] Performed By: #### T SCR30 ####[facility] BLOOD BANKCLIA [id number] [place] [address] [place] US ABD RIGHT [...] is likely benign. Cholelithiasis. No biliary dilatation. Cushion Mat Maker: PSCB Transcribe Date/Time: Jul 17 2025 10:24A Dictated by : PALMA WINTERS MD This examination was interpreted and the report reviewed and electronically signed by: PALMA WINTERS MD on Jul 17 2025 11:43AM EST [id number] Normal [facility] US Abdomen RUQon 07-17-2025 IMPRESSION: Visualized liver is unremarkable except for stable subcentimeter echogenic lesion in the right lobe that is likely benign. Cholelithiasis. No biliary dilatation. Cushion Mat Maker: LAVINIA Transcribe Date/Time: Jul 17 2025 10:24A Dictated by : PALMA WINTERS MD This examination was interpreted and the report reviewed and electronically signed by: PALMA WINTERS MD on Jul 17 2025 11:43AM [facility] DIVISION OF RADIOLOGY * * [...] hydronephrosis. Ascites: None. DIVISION OF RADIOLOGY Provider, [facility] - 07/17/2025 * * *Final Report* * [...] is likely benign. Cholelithiasis. No biliary dilatation. Cushion Mat Maker: LAVINIA Transcribe Date/Time: Jul 17 2025 10:24A Dictated by : PALMA WINTERS MD This examination was interpreted and the report reviewed and electronically signed by: PALMA WINTERS MD on Jul 17 2025 11:43AM EST [facility] Radiology Study observation (narrative) [facility] US Abdomen RUQOrdered By: Brooke f Provider on 07-17-2025 [facility] aPTT PPPon 07-17-2025 aPTT Coag (PPP) [Time] 34.3 s High 23.0-32.4 [facility] Comment on above: Order Comment: Speci men Type: BLOOD SPECIMENOrdering Facility: [facility] Address: [address] [place] [address] Performed By: #### 3 4528-0, 37370-5 ####[facility] LABCLIA [id number] [place] [address] [place] Absolute lymphocyte countOrd ered By: Elisa Narvaez on 07-16-2025 Lymphocytes Auto (Unsp spec) [#/Vol] 0.41 10*3/uL Low 0.83-4.51 [facility] Absolute neutrophil countOrd ered By: Elisa Narvaez on 07-16-2025 Neutrophils (Bld) [#/Vol] 4.8 10*3/uL 2.0-7.7 [facility] Anion gap in Serum or Plasma Ordered By: Elisa Narvaez on 07-16-2025 Anion gap [Moles/Vol] 10 mmol/L 5-15 [facility] Automated lymphocyte count a s percentage of total leukocytesOrdered By: Elisa Narvaez on 07-16-2025 Lymphocytes/100 WBC Auto (Unsp spec) 7.0 % Low 19-41 [facility] BUN/creatinine ratioOrdered By: Elisa Narvaez on 07-16-2025 Urea nitrogen/Creatinine [Mass ratio] 20.3 mg/mg High 10-20 [facility] Basic Metabolic Profile (BMP )on 07-16-2025 BUN/CRE 20.3 RATIO High 10-20 [facility] Comment on above: Order Comment: 302 Performed By: #### L 503.5510 #### [facility] [address] [place], [address] Calcium [Mass/Vol] 9.0 mg/dL Normal 7.6-11.0 [facility] Comment on above: Order Comment: 302 Performed By: #### L 503.5510 #### [facility] [address] [place], [address] Chloride [Moles/Vol] 111 mmol/L High 98-108 [facility] Comment on above: Order Comment: 302 Performed By: #### L 503.5510 #### [facility] [address] [place], [address] CO2 [Moles/Vol] 19.4 mmol/L Low 21.0-32.0 [facility] Comment on above: Order Comment: 302 Performed By: #### L 503.5510 #### [facility] [address] [place], [address] Creatinine [Mass/Vol] 0.97 mg/dL Normal 0.70-1.20 [facility] Comment on above: Order Comment: 302 Performed By: #### L 503.5510 #### [facility] [address] [place], [address] GAP 10 Normal 5-15 [facility] Comment on above: Order Comment: 302 Performed By: #### L 503.5510 #### [facility] [address] [place], [address] GFR/1.73 sq M.predicted among non-blacks MDRD (S/P/Bld) [Vol rate/Area] 82 mL/min/{1.73_m2} Normal >60 [facility] Comment on above: Order Comment: 302 Result Comment: mL/m in/1.73m2 CKD-EPI Creatinine Equation (2020) Performed By: #### L 503.5510 #### [facility] [address] [place], [address] Glucose [Mass/Vol] 128 mg/dL High 70-99 [facility] Comment on above: Order Comment: 302 Performed By: #### L 503.5510 #### [facility] [address] [place], [address] Potassium [Moles/Vol] 4.2 mmol/L Normal 3.3-5.1 [facility] Comment on above: Order Comment: 302 Performed By: #### L 503.5510 #### [facility] [address] [place], [address] Sodium [Moles/Vol] 141 mmol/L Normal 133-145 [facility] Comment on above: Order Comment: 302 Performed By: #### L 503.5510 #### [facility] [address] [place], [address] Urea nitrogen [Mass/Vol] 20 mg/dL High 4-19 [facility] Comment on above: Order Comment: 302 Performed By: #### L 503.5510 #### [facility] [address] [place], [address] Basophil percentageOrdered B y: Elisaely Narvaez on 07-16-2025 Basophils/100 WBC (Bld) 0.5 % 0-1 [facility] CBC W/Diff, Automatedon 09 Absolute Lymph 0.41 X10 3/uL Low 0.83-4.51 [facility] Comment on above: Order Comment: 302 Performed By: #### L 503.5510 #### [facility] [address] [place], [address] Absolute Neut 4.8 X10 3/uL Normal 2.0-7.7 [facility] Comment on above: Order Comment: 302 Performed By: #### L 503.5510 #### [facility] [address] [place], [address] Basophils/100 WBC (Bld) 0.5 % Normal 0-1 [facility] Comment on above: Order Comment: 302 Performed By: #### L 503.5510 #### [facility] [address] [place], [address] Eosinophils/100 WBC (Bld) 4.8 % Normal 0-5 [facility] Comment on above: Order Comment: 302 Performed By: #### L 503.5510 #### [facility] [address] [place], [address] Erythrocyte distribution width (RBC) [Ratio] 14.5 % Normal 11.6-14.6 [facility] Comment on above: Order Comment: 302 Performed By: #### L 503.5510 #### [facility] [address] [place], [address] Hematocrit (Bld) [Volume fraction] 35.4 % Low 40-54 [facility] Comment on above: Order Comment: 302 Performed By: #### L 503.5510 #### [facility] [address] [place], [address] Hemoglobin (Bld) [Mass/Vol] 11.5 g/dL Low 13.0-16.5 [facility] Comment on above: Order Comment: 302 Performed By: #### L 503.5510 #### [facility] [address] [place], [address] IG% 0.900 Normal 0.0-0.9 [facility] Comment on above: Order Comment: 302 Result Comment: IG% - Immature Granulocytes (promyelocytes, myelocytes and metamyelocytes) > 1% indicates that a LEFT SHIFT is Present. Performed By: #### L 503.5510 #### [facility] [address] [place], [address] Lymphocytes/100 WBC (Bld) 7.0 % Low 19-41 [facility] Comment on above: Order Comment: 302 Performed By: #### L 503.5510 #### [facility] [address] [place], [address] MCH (RBC) [Entitic mass] 32.7 pg High 27.0-32.0 [facility] Comment on above: Order Comment: 302 Performed By: #### L 503.5510 #### [facility] [address] [place], [address] MCHC (RBC) [Mass/Vol] 32.5 g/dL Normal 32-36 [facility] Comment on above: Order Comment: 302 Performed By: #### L 503.5510 #### [facility] [address] [place], [address] MCV (RBC) [Entitic vol] 100.6 fL High 80-94 [facility] Comment on above: Order Comment: 302 Performed By: #### L 503.5510 #### [facility] [address] [place], [address] Monocytes/100 WBC (Bld) 4.9 % Normal 0-10 [facility] Comment on above: Order Comment: 302 Performed By: #### L 503.5510 #### [facility] [address] [place], [address] Neutrophils/100 WBC (Bld) 81.9 % High 47-70 [facility] Comment on above: Order Comment: 302 Performed By: #### L 503.5510 #### [facility] [address] [place], [address] Nucleated RBC (Bld) [#/Vol] 0 10*3/uL Normal 0-5 [facility] Comment on above: Order Comment: 302 Performed By: #### L 503.5510 #### [facility] [address] [place], [address] Platelet mean volume (Bld) [Entitic vol] 11.7 fL Normal 6.2-12.0 [facility] Comment on above: Order Comment: 302 Performed By: #### L 503.5510 #### [facility] [address] [place], [address] Platelets (Bld) [#/Vol] 140 10*3/uL Low 150-450 [facility] Comment on above: Order Comment: 302 Performed By: #### L 503.5510 #### [facility] [address] [place], [address] RBC (Bld) [#/Vol] 3.52 10*6/uL Low 4.6-6.2 [facility] Comment on above: Order Comment: 302 Performed By: #### L 503.5510 #### [facility] [address] [place], [address] RDW SD 53.1 fl High 35.1-43.9 [facility] Comment on above: Order Comment: 302 Performed By: #### L 503.5510 #### [facility] [address] [place], [address] WBC (Bld) [#/Vol] 5.9 10*3/uL Normal 4.4-11.0 [facility] Comment on above: Order Comment: 302 Performed By: #### L 503.5510 #### [facility] [address] [place], [address] Carbon dioxide, total [Moles /volume] in Central venous bloodOrdered By: Elisa Narvaez on 07-16-2025 CO2 [Moles/Vol] 19.4 mmol/L Low 21.0-32.0 [facility] Chloride assayOrdered By: Lino Narvaez on 07-16-2025 Chloride [Moles/Vol] 111 mmol/L High 98-108 [facility] Eosinophil percentageOrdered By: Elisa Narvaez on 07-16-2025 Eosinophils/100 WBC (Bld) 4.8 % 0-5 [facility] Erythrocyte distribution wid th ratioOrdered By: Elisa Narvaez on 07-16-2025 Erythrocyte distribution width (RBC) [Ratio] 14.5 % 11.6-14.6 [facility] Erythrocyte distribution wid th standard deviationOrdered By: Elisa Narvaez on 07-16-2025 Erythrocyte distribution width (RBC) [Ratio] 53.1 fl High 35.1-43.9 [facility] Glomerular filtration rate ( GFR) estimation/1.73 sq m using serum, plasma, or whole bOrdered By: Elisa Narvaez on 07-16-2025 GFR/1.73 sq M.predicted among non-blacks MDRD (S/P/Bld) [Vol rate/Area] 82 mL/min/{1.73_m2} >60 [facility] Comment on above: mL/min/1.73m2 CKD-EP I Creatinine Equation (2020) Hematocrit Auto (Bld) [Volum e fraction]Ordered By: Elisa Narvaez on 07-16-2025 Hematocrit (Bld) [Volume fraction] 35.4 % Low 40-54 [facility] Hemoglobin measurementOrdere d By: Elisa Narvaez on 07-16-2025 Hemoglobin (Bld) [Mass/Vol] 11.5 g/dL Low 13.0-16.5 [facility] Immature granulocytes/100 WB C Auto (Bld)Ordered By: Elisa Narvaez on 07-16-2025 Immature granulocytes/100 WBC (Bld) 0.900 % 0.0-0.9 [facility] Comment on above: IG% - Immature Granu locytes (promyelocytes, myelocytes and metamyelocytes) > 1% indicates that a LEFT SHIFT is Present. MCV (mean corpuscular volume ) determinationOrdered By: Elisa Narvaez on 07-16-2025 MCV (RBC) [Entitic vol] 100.6 fL High 80-94 [facility] Mean corpuscular hemoglobin (MCH) determinationOrdered By: Elisaely Narvaez on 07-16-2025 MCH (RBC) [Entitic mass] 32.7 pg High 27.0-32.0 [facility] Mean corpuscular hemoglobin concentration (MCHC) determinationOrdered By: Elisaely Narvaez on 07-16-2025 MCHC (RBC) [Mass/Vol] 32.5 g/dL 32-36 [facility] Mean platelet volume determi nationOrdered By: Elisaely Narvaez on 07-16-2025 Platelet mean volume (Bld) [Entitic vol] 11.7 fL 6.2-12.0 [facility] Monocyte percentageOrdered B y: Elisa Narvaez on 07-16-2025 Monocytes/100 WBC (Bld) 4.9 % 0-10 [facility] Neurology Visit Reporton Neurology Visit Report [facility] [address], [address] [place] [address] OFFICE VISIT Date of Service: 07/16/25 MR#: [id number] Acct: [id number] Name: STEPH BAUMANN (RICK) Rep #: [id number] : 1950 Provider: Dr. Dwayne iniguez MD Age/Sex: 75/M Location: [facility] Status: Signed with Addenda ADDENDUM by Dr. Dwayne Horton MD on 07/16/25 at 1808 Assessment Plan Assessment/Plan (1) Parkinson's disease: Status: Chronic Code(s): G20 - Parkinson's disease (2) Abnormality of gait and mobility: Status: Chronic Code(s): R26.9 - Unspecified abnormalities of gait and mobility (3) Muscle hypertonia: Status: Acute Code(s): M62.89 - Other specified disorders of muscle Office Visits / Consults: 96334 OV L3 Est 20min (Change 07/16/2025 office visit code from level 4 to level 3 established) 07/16/25 1800 Date Dwayne Horton MD cc: * Signed [...] was of some benefit. 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 He has a several year history of [...] has sin (more content not included)... Normal [facility] Neutrophil percentageOrdered By: Elisa Narvaez on 07-16-2025 Neutrophils/100 WBC (Bld) 81.9 % High 47-70 [facility] Nucleated red blood cell per centageOrdered By: Elisa Narvaez on 07-16-2025 Nucleated RBC/100 WBC (Bld) [Ratio] 0 % 0-5 [facility] Platelet countOrdered By: Lino Narvaez on 07-16-2025 Platelets (Bld) [#/Vol] 140 10*3/uL Low 150-450 [facility] Potassium measurement (mass/ volume)Ordered By: Elisa Narvaez on 07-16-2025 Potassium (Unsp spec) [Mass/Vol] 4.2 mmol/L 3.3-5.1 [facility] RBC Auto (Bld) [#/Vol]Ordere d By: Elisa Narvaez on 07-16-2025 RBC (Bld) [#/Vol] 3.52 10*6/uL Low 4.6-6.2 [facility] Serum creatinine measurement (mass/volume)Ordered By: Elisa Narvaez on 07-16-2025 Creatinine [Mass/Vol] 0.97 mg/dL 0.70-1.20 [facility] Serum glucose measurement (m ass/volume)Ordered By: Elisa Narvaez on 07-16-2025 Glucose [Mass/Vol] 128 mg/dL High 70-99 [facility] Serum or plasma calcium carol urement (mass/volume)Ordered By: Elisa Narvaez on 07-16-2025 Calcium [Mass/Vol] 9.0 mg/dL 7.6-11.0 [facility] Serum or plasma urea nitroge n measurement (mass/volume)Ordered By: Elisa Narvaez on 07-16-2025 Urea nitrogen [Mass/Vol] 20 mg/dL High 4-19 [facility] Sodium levelOrdered By: Alden Narvaez on 07-16-2025 Sodium [Moles/Vol] 141 mmol/L 133-145 [facility] White blood cell (WBC) count Ordered By: Elisa Narvaez on 07-16-2025 WBC (Bld) [#/Vol] 5.9 10*3/uL 4.4-11.0 [facility] Ammoniaon 07-09-2025 Ammonia (P) [Moles/Vol] 22.7 umol/L Normal 16-60 [facility] Comment on above: Order Comment: 302 Performed By: #### L 503.5510 #### [facility] [address] [place], [address] Venous blood ammonia measure mentOrdered By: Elisa Narvaez on 07-09-2025 Ammonia (P) [Moles/Vol] 22.7 umol/L 16-60 [facility] Cardiology Visit Reporton Cardiology Visit Report [facility] [address] [place] [address] OFFICE VISIT Date of Service: 06/18/25 MR#: [id number] Acct: [id number] Name: STEPH BAUMANN (RICK) Rep #: [id number] : 1950 Provider: LON Solomon Age/Sex: 75/M Location: [facility] Status: Signed HPI HPI History of [...] with ascites. He is established with a gis scientist (Dr. Loredo- [facility]). He has also been diagnosed with prostate cancer and follows with the radiation oncologist here and is on bicalutamide. His last echocardiogram was in November 2020 demonstrating an ejection fraction of 20% with a moderately dilated LV, global hypokinesis and pulmonary systolic pressure of 50 mmHg. He is currently domiciled at [facility] and has been doing quite well. His biggest issue is his hip pain. He is planning on having a hernia repair at [facility]. They think that this is causing his hip pain. Intake Vital Signs 12/12/24 11:11 06/18/25 14:05 Height 5 ft 9 in 5 ft 9 in BP 113/75 Blood Pressure Location Lt brachial Position Sitting Respiration 16 Pulse 68 Pulse Source Monitor Intake Visit Reasons: 6 M FU/ Seeing Maribell at 1:30pm Certified Juvenile Probation Officer Required: No Is patient in pain?: No [...] bisacodyl 10 mg rectal suppository 10 mg IN DAILY PRN constipation 06/21/23 06/18/25 History sennosides [...] mineral oil (Fleet Mineral Oil 118 ml IN DAILY PRN 06/19/2406/18 History enema) ondansetron HCl [...] the past year?: No PFSH Medical History Acute and chronic respiratory failure with hypoxia Acute heart failure with reduced ejection fraction and diastolic dysfunction Adult failure to thrive Ambulates with cane Anticoagulant long-term use Anxiety Ascites Asthma Atheros (more content not included)... Normal [facility] Pacemaker Checkon 06-18-2025 Pacemaker Check [facility] 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 [place], [id number] Venous blood ammonia measure mentOrdered By: Elisa Narvaez on 06-11-2025 Ammonia (P) [Moles/Vol] 14.3 umol/L Low [facility] Anion gap in Serum or Plasma Ordered By: Elisa Narvaez on 05-30-2025 Anion gap [Moles/Vol] 11 mmol/L - [facility] BUN/creatinine ratioOrdered By: Elisa Narvaez on 05-30-2025 Urea nitrogen/Creatinine [Mass ratio] 24.2 mg/mg High 08-26 [facility] Basic Metabolic Profile (BMP )on 05-30-2025 BUN/CRE 24.2 RATIO High 08-26 [facility] Comment on above: Order Comment: 302 Performed By: #### L [id number] #### [facility] [address] [place], [place], [id number] Calcium [Mass/Vol] 8.8 mg/dL Normal 7.6-11.0 [facility] Comment on above: Order Comment: 302 Performed By: #### L [id number] #### [facility] [address] [place], [address] Chloride [Moles/Vol] 111 mmol/L High 98-108 [facility] Comment on above: Order Comment: 302 Performed By: #### L [id number] #### [facility] [address] [place], [address] CO2 [Moles/Vol] 18.5 mmol/L Low 21.0-32.0 [facility] Comment on above: Order Comment: 302 Performed By: #### L [id number] #### [facility] [address] [place], [address] Creatinine [Mass/Vol] 1.05 mg/dL Normal 0.70-1.20 [facility] Comment on above: Order Comment: 302 Performed By: #### L [id number] #### [facility] [address] [place], [address] GAP 11 Normal 5-15 [facility] Comment on above: Order Comment: 302 Performed By: #### L [id number] #### [facility] [address] [place], [address] GFR/1.73 sq M.predicted among non-blacks MDRD (S/P/Bld) [Vol rate/Area] 75 mL/min/{1.73_m2} Normal >60 [facility] Comment on above: Order Comment: 302 Result Comment: mL/m in/1.73m2 CKD-EPI Creatinine Equation (2020) Performed By: #### L [id number] #### [facility] [address] [place], [address] Glucose [Mass/Vol] 138 mg/dL High 70-99 [facility] Comment on above: Order Comment: 302 Performed By: #### L [id number] #### [facility] [address] [place], [address] Potassium [Moles/Vol] 4.0 mmol/L Normal 3.3-5.1 [facility] Comment on above: Order Comment: 302 Performed By: #### L [id number] #### [facility] [address] [place], [address] Sodium [Moles/Vol] 141 mmol/L Normal 133-145 [facility] Comment on above: Order Comment: 302 Performed By: #### L [id number] #### [facility] [address] [place], [address] Urea nitrogen [Mass/Vol] 25 mg/dL High 4-19 [facility] Comment on above: Order Comment: 302 Performed By: #### L [id number] #### [facility] [address] [place], [address] Carbon dioxide, total [Moles /volume] in Central venous bloodOrdered By: Elisa Narvaez on 05-30-2025 CO2 [Moles/Vol] 18.5 mmol/L Low 21.0-32.0 [facility] Chloride assayOrdered By: Lino Narvaez on 05-30-2025 Chloride [Moles/Vol] 111 mmol/L High 98-108 [facility] Glomerular filtration rate ( GFR) estimation/1.73 sq m using serum, plasma, or whole bOrdered By: Elisa Narvaez on 05-30-2025 GFR/1.73 sq M.predicted among non-blacks MDRD (S/P/Bld) [Vol rate/Area] 75 mL/min/{1.73_m2} >60 [facility] Comment on above: mL/min/1.73m2 CKD-EP I Creatinine Equation (2020) Magnesiumon 05-30-2025 Magnesium [Mass/Vol] 2.3 mg/dL High 1.5-2.2 [facility] Comment on above: Order Comment: 302 Performed By: #### L [id number] #### [facility] [address] [place], [address] Magnesium measurement (mass/ volume)Ordered By: Elisa Narvaez on 05-30-2025 Magnesium (Unsp spec) [Mass/Vol] 2.3 mg/dL High 1.5-2.2 [facility] Potassium measurement (mass/ volume)Ordered By: Elisa Narvaez on 05-30-2025 Potassium (Unsp spec) [Mass/Vol] 4.0 mmol/L 3.3-5.1 [facility] Serum creatinine measurement (mass/volume)Ordered By: Elisa Narvaez on 05-30-2025 Creatinine [Mass/Vol] 1.05 mg/dL 0.70-1.20 [facility] Serum glucose measurement (m ass/volume)Ordered By: Elisa Narvaez on 05-30-2025 Glucose [Mass/Vol] 138 mg/dL High 70-99 [facility] Serum or plasma calcium carol urement (mass/volume)Ordered By: Elisa Narvaez on 05-30-2025 Calcium [Mass/Vol] 8.8 mg/dL 7.6-11.0 [facility] Serum or plasma urea nitroge n measurement (mass/volume)Ordered By: Elisa Narvaez on 05-30-2025 Urea nitrogen [Mass/Vol] 25 mg/dL High 4-19 [facility] Sodium levelOrdered By: Alden Narvaez on 05-30-2025 Sodium [Moles/Vol] 141 mmol/L 133-145 [facility] PSA SerPl-mCncon 05-29-2025 Prostate specific Ag [Mass/Vol] ng/mL Normal <2.60 [facility] Comment on above: Order Comment: Speci men Type: BLOOD SPECIMENOrdering Facility: [facility] Address: [address] [place] [address] Result Comment: Radha saab PSA test methodology used is the Electrochemiluminescence Immunoassay by [employer]. Total PSA values by differing methodologies cannot be interchanged. Performed By: #### 2 857-1 ####[facility] LABCLIA [id number] [address] [address] [place] [facility] [id number] 05-21-2025 Natriuretic peptide B (Bld) [Mass/Vol] 1734 pg/mL High <=900 [facility] Comment on above: Order Comment: 302.1 Result Comment: Hear t Failure Unlikely: < 300 pg/mL Heart Failure Likely < 50 Years: > 450 pg/mL 50-75 Years: > 900 pg/mL >75 Years: > 1800 pg/mL Performed By: #### L 503.7505 #### [facility] [address] [place], [place], [address] Natriuretic peptide.B prohor kianna N-Terminal [Mass/volume] in Serum or PlasmaOrdered By: Elisa Narvaez on 05-21-2025 Natriuretic peptide.B prohormone N-Terminal [Mass/Vol] 1734 pg/mL High <900 [facility] Comment on above: Heart Failure Unlike ly: < 300 pg/mLHeart Failure Likely< 50 Years: > 450 pg/mL50-75 Years: > 900 pg/mL>75 Years: > 1800 pg/mL CNOVon 05-16-2025 CNOV Office Visit (GENRAMANA ) -- STEPH BAUMANN ([id number]) 1950 M Date Time Provider Department 05/16/25 [...] 4:51 PM Signed CLINIC NOTE Steph Baumann [id number] SUBJECTIVE: Steph Baumann is a 74 year [...] (97.5 ?F) (Temporal) Ht 175.3 cm (5' 9) Wt 78.1 kg (172 lb 3.2 oz) [...] PM Hernia Team Emiliano (Otto Kendrick Rosenblatt): [phone] [employer] (Ce Bhatia Petro): 19120 After 6PM + weekends: [phone] El Arentt MD 05/16/2025 5:08 PM Signed Consultation requested [...] is a friend of the family from [place] and the decision clearly weighs heavily on [...] (more content not included)... Normal [facility] Ammoniaon 05-14-2025 Ammonia (P) [Moles/Vol] 20.1 umol/L Normal - [facility] Comment on above: Order Comment: 302 Performed By: #### L [id number] #### [facility] [address] [place], [address] Venous blood ammonia measure mentOrdered By: Elisa Narvaez on 05-14-2025 Ammonia (P) [Moles/Vol] 20.1 umol/L - [facility] Anion gap in Serum or Plasma Ordered By: Elisa Narvaez on 04-24-2025 Anion gap [Moles/Vol] 8 mmol/L - [facility] BUN/creatinine ratioOrdered By: Elisa Narvaez on 04-24-2025 Urea nitrogen/Creatinine [Mass ratio] 17.5 mg/mg - [facility] Basic Metabolic Profile (BMP )on 04-24-2025 BUN/CRE 17.5 RATIO Normal - [facility] Comment on above: Performed By: #### L [id number] #### [facility] [address], [address] Calcium [Mass/Vol] 8.7 mg/dL Normal 7.6-11.0 [facility] Comment on above: Performed By: #### L [id number] #### [facility] [address] [place], [address] Chloride [Moles/Vol] 107 mmol/L Normal 98-108 [facility] Comment on above: Performed By: #### L [id number] #### [facility] [address] [place], [address] CO2 [Moles/Vol] 20.4 mmol/L Low 21.0-32.0 [facility] Comment on above: Performed By: #### L [id number] #### [facility] [address] [place], [address] Creatinine [Mass/Vol] 1.01 mg/dL Normal 0.70-1.20 [facility] Comment on above: Performed By: #### L [id number] #### [facility] [address] [place], [address] GAP 8 Normal 5-15 [facility] Comment on above: Performed By: #### L [id number] #### [facility] [address] [place], [address] GFR/1.73 sq M.predicted among non-blacks MDRD (S/P/Bld) [Vol rate/Area] 79 mL/min/{1.73_m2} Normal >60 [facility] Comment on above: Result Comment: mL/m in/1.73m2 CKD-EPI Creatinine Equation (2020) Performed By: #### L [id number] #### [facility] [address] [place], [address] Glucose [Mass/Vol] 129 mg/dL High 70-99 [facility] Comment on above: Performed By: #### L [id number] #### [facility] [address] [place], [address] Potassium [Moles/Vol] 4.4 mmol/L Normal 3.3-5.1 [facility] Comment on above: Performed By: #### L [id number] #### [facility] [address] [place], [address] Sodium [Moles/Vol] 135 mmol/L Normal 133-145 [facility] Comment on above: Performed By: #### L [id number] #### [facility] [address] [place], [address] Urea nitrogen [Mass/Vol] 18 mg/dL Normal 4-19 [facility] Comment on above: Performed By: #### L [id number] #### [facility] [address] [place], [address] CBC-Complete Blood Cnt No Di ffon 04-24-2025 Erythrocyte distribution width (RBC) [Ratio] 14.4 % Normal 11.6-14.6 [facility] Comment on above: Performed By: #### L [id number] #### [facility] [address] [place], [address] Hematocrit (Bld) [Volume fraction] 38.5 % Low 40-54 [facility] Comment on above: Performed By: #### L [id number] #### [facility] [address] [place], [address] Hemoglobin (Bld) [Mass/Vol] 12.4 g/dL Low 13.0-16.5 [facility] Comment on above: Performed By: #### L [id number] #### [facility] [address] [place], [address] MCH (RBC) [Entitic mass] 32.4 pg High 27.0-32.0 [facility] Comment on above: Performed By: #### L [id number] #### [facility] [address] [place], [address] MCHC (RBC) [Mass/Vol] 32.2 g/dL Normal 32-36 [facility] Comment on above: Performed By: #### L [id number] #### [facility] [address] [place], [address] MCV (RBC) [Entitic vol] 100.5 fL High 80-94 [facility] Comment on above: Performed By: #### L [id number] #### [facility] [address] [place], [address] Platelet mean volume (Bld) [Entitic vol] 11.5 fL Normal 6.2-12.0 [facility] Comment on above: Performed By: #### L [id number] #### [facility] [address] [place], [address] Platelets (Bld) [#/Vol] 125 10*3/uL Low 150-450 [facility] Comment on above: Performed By: #### L [id number] #### [facility] [address] [place], [address] RBC (Bld) [#/Vol] 3.83 10*6/uL Low 4.6-6.2 [facility] Comment on above: Performed By: #### L [id number] #### [facility] [address] [place], [address] RDW SD 52.8 fl High 35.1-43.9 [facility] Comment on above: Performed By: #### L [id number] #### [facility] [address] [place], [address] WBC (Bld) [#/Vol] 5.5 10*3/uL Normal 4.4-11.0 [facility] Comment on above: Performed By: #### L [id number] #### [facility] [address] [place], [address] Carbon dioxide, total [Moles /volume] in Central venous bloodOrdered By: Elisa Narvaez on 04-24-2025 CO2 [Moles/Vol] 20.4 mmol/L Low 21.0-32.0 [facility] Chloride assayOrdered By: Lino Narvaez on 04-24-2025 Chloride [Moles/Vol] 107 mmol/L 98-108 [facility] Erythrocyte distribution wid th ratioOrdered By: Elisa Narvaez on 04-24-2025 Erythrocyte distribution width (RBC) [Ratio] 14.4 % 11.6-14.6 [facility] Erythrocyte distribution wid th standard deviationOrdered By: Elisa Narvaez on 04-24-2025 Erythrocyte distribution width (RBC) [Ratio] 52.8 fl High 35.1-43.9 [facility] Glomerular filtration rate ( GFR) estimation/1.73 sq m using serum, plasma, or whole bOrdered By: Elisa Narvaez on 04-24-2025 GFR/1.73 sq M.predicted among non-blacks MDRD (S/P/Bld) [Vol rate/Area] 79 mL/min/{1.73_m2} >60 [facility] Comment on above: mL/min/1.73m2 CKD-EP I Creatinine Equation (2020) Hematocrit Auto (Bld) [Volum e fraction]Ordered By: Elisa Narvaez on 04-24-2025 Hematocrit (Bld) [Volume fraction] 38.5 % Low 40-54 [facility] Hemoglobin measurementOrdere d By: Elisa Narvaez on 04-24-2025 Hemoglobin (Bld) [Mass/Vol] 12.4 g/dL Low 13.0-16.5 [facility] MCV (mean corpuscular volume ) determinationOrdered By: Elisa Narvaez on 04-24-2025 MCV (RBC) [Entitic vol] 100.5 fL High 80-94 [facility] Mean corpuscular hemoglobin (MCH) determinationOrdered By: Elisa Narvaez on 04-24-2025 MCH (RBC) [Entitic mass] 32.4 pg High 27.0-32.0 [facility] Mean corpuscular hemoglobin concentration (MCHC) determinationOrdered By: Elisa Narvaez on 04-24-2025 MCHC (RBC) [Mass/Vol] 32.2 g/dL 32-36 [facility] Mean platelet volume determi nationOrdered By: Elisa Narvaez on 04-24-2025 Platelet mean volume (Bld) [Entitic vol] 11.5 fL 6.2-12.0 [facility] Platelet countOrdered By: Lino Narvaez on 04-24-2025 Platelets (Bld) [#/Vol] 125 10*3/uL Low 150-450 [facility] Potassium measurement (mass/ volume)Ordered By: Elisa Narvaez on 04-24-2025 Potassium (Unsp spec) [Mass/Vol] 4.4 mmol/L 3.3-5.1 [facility] RBC Auto (Bld) [#/Vol]Ordere d By: Elisa Narvaez on 04-24-2025 RBC (Bld) [#/Vol] 3.83 10*6/uL Low 4.6-6.2 [facility] Serum creatinine measurement (mass/volume)Ordered By: Elisa Narvaez on 04-24-2025 Creatinine [Mass/Vol] 1.01 mg/dL 0.70-1.20 [facility] Serum glucose measurement (m ass/volume)Ordered By: Elisa Narvaez on 04-24-2025 Glucose [Mass/Vol] 129 mg/dL High 70-99 [facility] Serum or plasma calcium carol urement (mass/volume)Ordered By: Elisa Narvaez on 04-24-2025 Calcium [Mass/Vol] 8.7 mg/dL 7.6-11.0 [facility] Serum or plasma urea nitroge n measurement (mass/volume)Ordered By: Elisa Narvaez on 04-24-2025 Urea nitrogen [Mass/Vol] 18 mg/dL 4-19 [facility] Sodium levelOrdered By: Alden Narvaez on 04-24-2025 Sodium [Moles/Vol] 135 mmol/L 133-145 [facility] White blood cell (WBC) count Ordered By: Elisa Narvaez on 04-24-2025 WBC (Bld) [#/Vol] 5.5 10*3/uL 4.4-11.0 [facility] Ammoniaon 04-12-2025 Ammonia (P) [Moles/Vol] 22.3 umol/L Normal 16-60 [facility] Comment on above: Order Comment: 302 Performed By: #### L [id number] #### [facility] [address] [place], [place], [id number] Venous blood ammonia measure mentOrdered By: Elisa Narvaez on 04-12-2025 Ammonia (P) [Moles/Vol] 22.3 umol/L [facility] Ammoniaon 03-15-2025 Ammonia (P) [Moles/Vol] 22.5 umol/L Normal [facility] Comment on above: Order Comment: 302 Performed By: #### L [id number] #### [facility] [address] [place], [place], [id number] Venous blood ammonia measure mentOrdered By: Elisa Narvaez on 03-15-2025 Ammonia (P) [Moles/Vol] 22.5 umol/L [facility] Absolute lymphocyte countOrd ered By: Elisa aNrvaez on 03-11-2025 Lymphocytes Auto (Unsp spec) [#/Vol] 0.73 10*3/uL Low 0.83-4.51 [facility] Absolute neutrophil countOrd ered By: Elisa Narvaez on 03-11-2025 Neutrophils (Bld) [#/Vol] 4.8 10*3/uL 2.0-7.7 [facility] Anion gap in Serum or Plasma Ordered By: Elisa Narvaez on 03-11-2025 Anion gap [Moles/Vol] 9 mmol/L 5-15 [facility] Automated lymphocyte count a s percentage of total leukocytesOrdered By: Elisa Narvaez on 03-11-2025 Lymphocytes/100 WBC Auto (Unsp spec) 11.6 % Low 19-41 [facility] BUN/creatinine ratioOrdered By: Elisa Narvaez on 03-11-2025 Urea nitrogen/Creatinine [Mass ratio] 17.9 mg/mg 10-20 [facility] Basophil percentageOrdered B y: Elisa Narvaez on 03-11-2025 Basophils/100 WBC (Bld) 0.5 % 0-1 [facility] Bilirubin, totalOrdered By: Elisa Narvaez on 03-11-2025 Bilirubin [Mass/Vol] 0.44 mg/dL 0.00-1.30 [facility] CBC W/Diff, Automatedon Absolute Lymph 0.73 X10 3/uL Low 0.83-4.51 [facility] Comment on above: Order Comment: 302.1 Performed By: #### L [id number] #### [facility] [address] [place], [address] Absolute Neut 4.8 X10 3/uL Normal 2.0-7.7 [facility] Comment on above: Order Comment: 302.1 Performed By: #### L [id number] #### [facility] [address] [place], [address] Basophils/100 WBC (Bld) 0.5 % Normal 0-1 [facility] Comment on above: Order Comment: 302.1 Performed By: #### L [id number] #### [facility] [address] [place], [address] Eosinophils/100 WBC (Bld) 4.5 % Normal 0-5 [facility] Comment on above: Order Comment: 302.1 Performed By: #### L [id number] #### [facility] [address] [place], [address] Erythrocyte distribution width (RBC) [Ratio] 14.8 % High 11.6-14.6 [facility] Comment on above: Order Comment: 302.1 Performed By: #### L [id number] #### [facility] [address] [place], [address] Hematocrit (Bld) [Volume fraction] 37.5 % Low 40-54 [facility] Comment on above: Order Comment: 302.1 Performed By: #### L [id number] #### [facility] [address] [place], [address] Hemoglobin (Bld) [Mass/Vol] 12.0 g/dL Low 13.0-16.5 [facility] Comment on above: Order Comment: 302.1 Performed By: #### L [id number] #### [facility] [address] [place], [address] IG% 0.600 Normal 0.0-0.9 [facility] Comment on above: Order Comment: 302.1 Result Comment: IG% - Immature Granulocytes (promyelocytes, myelocytes and metamyelocytes) > 1% indicates that a LEFT SHIFT is Present. Performed By: #### L [id number] #### [facility] [address] [place], [address] Lymphocytes/100 WBC (Bld) 11.6 % Low 19-41 [facility] Comment on above: Order Comment: 302.1 Performed By: #### L [id number] #### [facility] [address] [place], [address] MCH (RBC) [Entitic mass] 32.2 pg High 27.0-32.0 [facility] Comment on above: Order Comment: 302.1 Performed By: #### L [id number] #### [facility] [address] [place], [address] MCHC (RBC) [Mass/Vol] 32.0 g/dL Normal 32-36 [facility] Comment on above: Order Comment: 302.1 Performed By: #### L [id number] #### [facility] [address] [place], [address] MCV (RBC) [Entitic vol] 100.5 fL High 80-94 [facility] Comment on above: Order Comment: 302.1 Performed By: #### L [id number] #### [facility] [address] [place], [address] Monocytes/100 WBC (Bld) 6.8 % Normal 0-10 [facility] Comment on above: Order Comment: 302.1 Performed By: #### L [id number] #### [facility] [address] [place], [address] Neutrophils/100 WBC (Bld) 76.0 % High 47-70 [facility] Comment on above: Order Comment: 302.1 Performed By: #### L [id number] #### [facility] [address] [place], [address] Nucleated RBC (Bld) [#/Vol] 0 10*3/uL Normal 0-5 [facility] Comment on above: Order Comment: 302.1 Performed By: #### L [id number] #### [facility] [address] [place], [address] Platelet mean volume (Bld) [Entitic vol] 11.6 fL Normal 6.2-12.0 [facility] Comment on above: Order Comment: 302.1 Performed By: #### L [id number] #### [facility] [address] [place], [address] Platelets (Bld) [#/Vol] 135 10*3/uL Low 150-450 [facility] Comment on above: Order Comment: 302.1 Performed By: #### L [id number] #### [facility] [address] [place], [address] RBC (Bld) [#/Vol] 3.73 10*6/uL Low 4.6-6.2 [facility] Comment on above: Order Comment: 302.1 Performed By: #### L [id number] #### [facility] [address] [place], [address] RDW SD 55.4 fl High 35.1-43.9 [facility] Comment on above: Order Comment: 302.1 Performed By: #### L [id number] #### [facility] [address] [place], [address] WBC (Bld) [#/Vol] 6.3 10*3/uL Normal 4.4-11.0 [facility] Comment on above: Order Comment: 302.1 Performed By: #### L [id number] #### [facility] [address] [place], [address] Carbon dioxide, total [Moles /volume] in Central venous bloodOrdered By: Elisa Narvaez on 03-11-2025 CO2 [Moles/Vol] 17.5 mmol/L Low 21.0-32.0 [facility] Chloride assayOrdered By: Lino Narvaez on 03-11-2025 Chloride [Moles/Vol] 111 mmol/L High 98-108 [facility] Comprehensive Metabolic Prof ilon 03-11-2025 Albumin [Mass/Vol] 3.6 g/dL Normal 3.4-4.8 [facility] Comment on above: Order Comment: 302.1 Performed By: #### L [id number] #### [facility] [address] [place], [address] Albumin/Globulin [Mass ratio] 1.2 {ratio} Normal 0.9-2.4 [facility] Comment on above: Order Comment: 302.1 Performed By: #### L [id number] #### [facility] [address] [place], [address] ALK PHOS 71 U/L Normal 40-129 [facility] Comment on above: Order Comment: 302.1 Performed By: #### L [id number] #### [facility] [address] [place], [address] ALT [Catalytic activity/Vol] 5 U/L Normal <=46 [facility] Comment on above: Order Comment: 302.1 Performed By: #### L [id number] #### [facility] [address] [place], [address] AST [Catalytic activity/Vol] 15 U/L Normal <=37 [facility] Comment on above: Order Comment: 302.1 Performed By: #### L [id number] #### [facility] [address] [place], [address] Bilirubin [Mass/Vol] 0.44 mg/dL Normal 0.00-1.30 [facility] Comment on above: Order Comment: 302.1 Performed By: #### L [id number] #### [facility] [address] [place], [address] BUN/CRE 17.9 RATIO Normal 10-20 [facility] Comment on above: Order Comment: 302.1 Performed By: #### L [id number] #### [facility] [address] [place], [address] Calcium [Mass/Vol] 8.0 mg/dL Normal 7.6-11.0 [facility] Comment on above: Order Comment: 302.1 Performed By: #### L [id number] #### [facility] [address] [place], [address] Chloride [Moles/Vol] 111 mmol/L High 98-108 [facility] Comment on above: Order Comment: 302.1 Performed By: #### L [id number] #### [facility] [address] [place], [address] CO2 [Moles/Vol] 17.5 mmol/L Low 21.0-32.0 [facility] Comment on above: Order Comment: 302.1 Performed By: #### L [id number] #### [facility] [address] [place], [address] Creatinine [Mass/Vol] 0.99 mg/dL Normal 0.70-1.20 [facility] Comment on above: Order Comment: 302.1 Performed By: #### L [id number] #### [facility] [address] [place], [address] GAP 9 Normal 5-15 [facility] Comment on above: Order Comment: 302.1 Performed By: #### L 231.5510 #### [facility] [address] [place], [address] GFR/1.73 sq M.predicted among non-blacks MDRD (S/P/Bld) [Vol rate/Area] 81 mL/min/{1.73_m2} Normal >60 [facility] Comment on above: Order Comment: 302.1 Result Comment: mL/m in/1.73m2 CKD-EPI Creatinine Equation (2020) Performed By: #### L [id number] #### [facility] [address] [place], [address] Globulin (S) [Mass/Vol] 3.1 g/dL Normal 2.2-4.2 [facility] Comment on above: Order Comment: 302.1 Performed By: #### L [id number] #### [facility] [address] [place], [address] Glucose [Mass/Vol] 99 mg/dL Normal 70-99 [facility] Comment on above: Order Comment: 302.1 Performed By: #### L 503.5510 #### [facility] [address] [place], [address] Potassium [Moles/Vol] 4.0 mmol/L Normal 3.3-5.1 [facility] Comment on above: Order Comment: 302.1 Performed By: #### L 503.5510 #### [facility] [address] [place], [address] Sodium [Moles/Vol] 137 mmol/L Normal 133-145 [facility] Comment on above: Order Comment: 302.1 Performed By: #### L 503.5510 #### [facility] [address] [place], [address] T PROT 6.7 g/dL Normal 5.9-8.4 [facility] Comment on above: Order Comment: 302.1 Performed By: #### L 503.5510 #### [facility] [address] [place], [place], [address] Urea nitrogen [Mass/Vol] 18 mg/dL Normal 4-19 [facility] Comment on above: Order Comment: 302.1 Performed By: #### L 503.5510 #### [facility] [address] [place], [place], [address] Eosinophil percentageOrdered By: Elisa Narvaez on 03-11-2025 Eosinophils/100 WBC (Bld) 4.5 % 0-5 [facility] Erythrocyte distribution wid th ratioOrdered By: Elisa Narvaez on 03-11-2025 Erythrocyte distribution width (RBC) [Ratio] 14.8 % High 11.6-14.6 [facility] Erythrocyte distribution wid th standard deviationOrdered By: Elisa Narvaez on 03-11-2025 Erythrocyte distribution width (RBC) [Ratio] 55.4 fl High 35.1-43.9 [facility] Glomerular filtration rate ( GFR) estimation/1.73 sq m using serum, plasma, or whole bOrdered By: Elisa Narvaez on 03-11-2025 GFR/1.73 sq M.predicted among non-blacks MDRD (S/P/Bld) [Vol rate/Area] 81 mL/min/{1.73_m2} >60 [facility] Comment on above: mL/min/1.73m2 CKD-EP I Creatinine Equation (2020) Hematocrit Auto (Bld) [Volum e fraction]Ordered By: Elisa Narvaez on 03-11-2025 Hematocrit (Bld) [Volume fraction] 37.5 % Low 40-54 [facility] Hemoglobin measurementOrdere d By: Elisa Narvaez on 03-11-2025 Hemoglobin (Bld) [Mass/Vol] 12.0 g/dL Low 13.0-16.5 [facility] Immature granulocytes/100 WB C Auto (Bld)Ordered By: Elisa Narvaez on 03-11-2025 Immature granulocytes/100 WBC (Bld) 0.600 % 0.0-0.9 [facility] Comment on above: IG% - Immature Granu locytes (promyelocytes, myelocytes and metamyelocytes) > 1% indicates that a LEFT SHIFT is Present. International normalized rat io (INR) calculationOrdered By: Elisa Narvaez on 03-11-2025 INR Coag (Bld) [Relative time] 1.4 {INR} [facility] - Chemistry and C hemistry - challengeOrdered By: Elisa Narvaez on 03-11-2025 AST [Catalytic activity/Vol] 15 U/L <38 [facility] MCV (mean corpuscular volume ) determinationOrdered By: Elisa Narvaez on 03-11-2025 MCV (RBC) [Entitic vol] 100.5 fL High 80-94 [facility] Mean corpuscular hemoglobin (MCH) determinationOrdered By: Elisa Narvaez on 03-11-2025 MCH (RBC) [Entitic mass] 32.2 pg High 27.0-32.0 [facility] Mean corpuscular hemoglobin concentration (MCHC) determinationOrdered By: Elisa Narvaez on 03-11-2025 MCHC (RBC) [Mass/Vol] 32.0 g/dL 32-36 [facility] Mean platelet volume determi nationOrdered By: Elisa Narvaez on 03-11-2025 Platelet mean volume (Bld) [Entitic vol] 11.6 fL 6.2-12.0 [facility] Monocyte percentageOrdered B y: Elisa Narvaez on 03-11-2025 Monocytes/100 WBC (Bld) 6.8 % 0-10 [facility] Neutrophil percentageOrdered By: lEisa Narvaez on 03-11-2025 Neutrophils/100 WBC (Bld) 76.0 % High 47-70 [facility] Nucleated red blood cell per centageOrdered By: Elisa Narvaez on 03-11-2025 Nucleated RBC/100 WBC (Bld) [Ratio] 0 % 0-5 [facility] Platelet countOrdered By: Lino Narvaez on 03-11-2025 Platelets (Bld) [#/Vol] 135 10*3/uL Low 150-450 [facility] Potassium measurement (mass/ volume)Ordered By: Elisa Narvaez on 03-11-2025 Potassium (Unsp spec) [Mass/Vol] 4.0 mmol/L 3.3-5.1 [facility] Prothrombin Time w/INRon INR Coag (PPP) [Relative time] 1.4 {INR} Normal [facility] Comment on above: Order Comment: 302.1 Performed By: #### L 503.5510 #### [facility] [address] [place], [place], [id number] PT Coag (PPP) [Time] 17.7 s High 11.7-14.9 [facility] Comment on above: Order Comment: 302.1 Performed By: #### L 503.5510 #### [facility] [address] [facility] [place], [place], [address] Prothrombin timeOrdered By: Elisa Narvaez on 03-11-2025 PT Coag (PPP) [Time] 17.7 s High 11.7-14.9 [facility] RBC Auto (Bld) [#/Vol]Ordere d By: Elisa Narvaez on 03-11-2025 RBC (Bld) [#/Vol] 3.73 10*6/uL Low 4.6-6.2 [facility] Serum creatinine measurement (mass/volume)Ordered By: Elisa Narvaez on 03-11-2025 Creatinine [Mass/Vol] 0.99 mg/dL 0.70-1.20 [facility] Serum globulin measurementOr dered By: Elisa Narvaez on 03-11-2025 Globulin (S) [Mass/Vol] 3.1 g/dL 2.2-4.2 [facility] Serum glucose measurement (m ass/volume)Ordered By: Elisa Narvaez on 03-11-2025 Glucose [Mass/Vol] 99 mg/dL 70-99 [facility] Serum or plasma alanine gary otransferase (ALT) measurementOrdered By: Elisa Narvaez on 03-11-2025 ALT [Catalytic activity/Vol] 5 U/L <47 [facility] Serum or plasma albumin carol urement (mass/volume)Ordered By: Elisa Narvaez on 03-11-2025 Albumin [Mass/Vol] 3.6 g/dL 3.4-4.8 [facility] Serum or plasma albumin/glob ulin mass ratioOrdered By: Elisa Narvaez on 03-11-2025 Albumin/Globulin [Mass ratio] 1.2 {ratio} 0.9-2.4 [facility] Serum or plasma alkaline cristo sphatase measurementOrdered By: Elisa Narvaez on 03-11-2025 ALP [Catalytic activity/Vol] 71 U/L 40-129 [facility] Serum or plasma calcium carol urement (mass/volume)Ordered By: Elisa Narvaez on 03-11-2025 Calcium [Mass/Vol] 8.0 mg/dL 7.6-11.0 [facility] Serum or plasma urea nitroge n measurement (mass/volume)Ordered By: Elisa Narvaez on 03-11-2025 Urea nitrogen [Mass/Vol] 18 mg/dL 4-19 [facility] Sodium levelOrdered By: Alden Narvaez on 03-11-2025 Sodium [Moles/Vol] 137 mmol/L 133-145 [facility] Total proteinOrdered By: Dante Narvaez on 03-11-2025 Protein [Mass/Vol] 6.7 g/dL 5.9-8.4 [facility] White blood cell (WBC) count Ordered By: Elisa Narvaez on 03-11-2025 WBC (Bld) [#/Vol] 6.3 10*3/uL 4.4-11.0 [facility] CNOVSPon 03-06-2025 CNOVSP Visit (SP) Office (H EMAWS) -- STEPH BAUMANN ([id number]) 1950 M Date Time Provider Department 03/06/25 10:10 AM JONNATHAN KOTHARI HEMAWS During your visit today, we recorded the following information about you: Temperature Pulse Blood pressure 97.5 degrees 57/minute 98/52 Jonnathan Kothari DO 03/06/2025 11:18 AM Signed Oncologic problem(s): [...] biopsy on 11/12/2021. All 4 cores demonstrated Monroe grade 7, 2 of the cores were [...] for cirrhosis. Here today with POA from [place] (daughter's friend). Visits him every 2 weeks. Diagnosed with Parkinsons in April. Requires wheelchair. Was independent prior to that. Living at [facility]. Recently started having dysuria deep in when [...] damage from previous surgery. He is seeing [facility]. Otherwise his left hand has spasms. Has spasms. No MS pain otherwise. Denies jaw pain. Wears a diaper for incontinence but no complaints of dysuria. 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 Normal [facility] PSA SerPl-mCncon 03-06-2025 Prostate specific Ag [Mass/Vol] ng/mL Normal <2.60 [facility] Comment on above: Order Comment: Speci men Type: BLOOD SPECIMENOrdering Facility: [facility] Address: [address] [place] [address] Result Comment: Tota l PSA test methodology used is the Electrochemiluminescence Immunoassay by [employer]. Total PSA values by differing methodologies cannot be interchanged. Performed By: #### 2 857-1 ####[facility] LABCLIA [id number] [place] [address] [place] Ammoniaon 02-15-2025 Ammonia (P) [Moles/Vol] 20.8 umol/L Normal [facility] Comment on above: Performed By: #### L 503.5510 #### [facility] [address] [place], [address] Venous blood ammonia measure mentOrdered By: Elisa Narvaez on 02-15-2025 Ammonia (P) [Moles/Vol] 20.8 umol/L [facility] CNPNon 02-14-2025 CNPN Telephone (DDQ) -- STEPH BAUMANN ([id number]) 1950 M Date Time Provider Department 02/14/25 [...] she has additional questions. MD Chetan Walters Osas RN 02/15/2025 2:50 PM Signed Nurse called [...] (more content not included)... Normal [facility] CBC W Auto Differential pane l (Bld)on 02-13-2025 Basophils (Bld) [#/Vol] 0.04 10*3/uL Normal <0.11 [facility] Comment on above: Order Comment: Speci men Type: BLOOD SPECIMENOrdering Facility: [facility] Address: [address] [place] [address] Performed By: #### 5 7021-8 ####[facility] LABCLIA [id number] [place] [address] [place] Basophils/100 WBC (Bld) 0.7 % Normal [facility] Comment on above: Order Comment: Speci men Type: BLOOD SPECIMENOrdering Facility: [facility] Address: [address] [place] [address] Performed By: #### 5 7021-8 ####[facility] LABCLIA [id number] [place] [address] [place] Differential cell count method Nom (Bld) Auto Normal [facility] Comment on above: Order Comment: Speci men Type: BLOOD SPECIMENOrdering Facility: [facility] Address: [address] [place] [address] Performed By: #### 5 7021-8 ####[facility] LABCLIA [id number] [place] [address] [place] Eosinophils (Bld) [#/Vol] 0.27 10*3/uL Normal <0.46 [facility] Comment on above: Order Comment: Speci men Type: BLOOD SPECIMENOrdering Facility: [facility] Address: [address] [place] [address] Performed By: #### 5 7021-8 ####[facility] LABCLIA [id number] [facility] [address], [place] [address] [place] Eosinophils/100 WBC (Bld) 4.5 % Normal [facility] Comment on above: Order Comment: Speci men Type: BLOOD SPECIMENOrdering Facility: [facility] Address: [address] [place] [address] Performed By: #### 5 7021-8 ####[facility] LABIA [id number] [address], [place] [address] [place] Erythrocyte distribution width (RBC) [Ratio] 14.6 % Normal 11.5-15.0 [facility] Comment on above: Order Comment: Speci men Type: BLOOD SPECIMENOrdering Facility: [facility] Address: [address] [place] [address] Performed By: #### 5 7021-8 ####[facility] LABIA [id number] [address], [place] [address] [place] Hematocrit (Bld) [Volume fraction] 38.3 % Low 39.0-51.0 [facility] Comment on above: Order Comment: Speci men Type: BLOOD SPECIMENOrdering Facility: [facility] Address: [address] [place] [address] Performed By: #### 5 7021-8 ####[facility] LABIA [id number] [place] [id number] [place] Hemoglobin (Bld) [Mass/Vol] 12.3 g/dL Low 13.0-17.0 [facility] Comment on above: Order Comment: Speci men Type: BLOOD SPECIMENOrdering Facility: [facility] Address: [address] [place], [place] [address] Performed By: #### 5 7021-8 ####[facility] LABCLIA [id number] [place] [address] [place] Immature granulocytes (Bld) [#/Vol] 0.05 10*3/uL Normal <0.10 [facility] Comment on above: Order Comment: Speci men Type: BLOOD SPECIMENOrdering Facility: [facility] Address: [address] [place] [address] Performed By: #### 5 7021-8 ####[facility] LABCLIA [id number] [address] [place] Immature granulocytes/100 WBC (Bld) 0.8 % Normal [facility] Comment on above: Order Comment: Speci men Type: BLOOD SPECIMENOrdering Facility: [facility] Address: [address] [place] [address] Performed By: #### 5 7021-8 ####[facility] LABCLIA [id number] [place] [address] [place] Lymphocytes (Bld) [#/Vol] 0.58 10*3/uL Low 1.00-4.00 [facility] Comment on above: Order Comment: Speci men Type: BLOOD SPECIMENOrdering Facility: [facility] Address: [address] [place] [address] Performed By: #### 5 7021-8 ####[facility] LABCLIA [id number] [place] [address] [place] Lymphocytes/100 WBC (Bld) 9.6 % Normal [facility] Comment on above: Order Comment: Speci men Type: BLOOD SPECIMENOrdering Facility: [facility] Address: [address] [place] [address] Performed By: #### 5 7021-8 ####[facility] LABCLIA [id number] [address] [place] [address] [place] MCH (RBC) [Entitic mass] 31.7 pg Normal 26.0-34.0 [facility] Comment on above: Order Comment: Speci men Type: BLOOD SPECIMENOrdering Facility: [facility] Address: [address] [place] [address] Performed By: #### 5 7021-8 ####[facility] LABCLIA [id number] [place] [address] [place] MCHC (RBC) [Mass/Vol] 32.1 g/dL Normal 30.5-36.0 [facility] Comment on above: Order Comment: Speci men Type: BLOOD SPECIMENOrdering Facility: [facility] Address: [address] [place] [address] Performed By: #### 5 7021-8 ####[facility] LABIA [id number] [place] [address] [place] MCV (RBC) [Entitic vol] 98.7 fL Normal 80.0-100.0 [facility] Comment on above: Order Comment: Speci men Type: BLOOD SPECIMENOrdering Facility: [facility] Address: [address] [place] [address] Performed By: #### 5 7021-8 ####[facility] LABIA [id number] [place] [address] [place] Monocytes (Bld) [#/Vol] 0.36 10*3/uL Normal <0.87 [facility] Comment on above: Order Comment: Speci men Type: BLOOD SPECIMENOrdering Facility: [facility] Address: [address] [place] [address] Performed By: #### 5 7021-8 ####[facility] LABCLIA [id number] [address] [place] Monocytes/100 WBC (Bld) 6.0 % Normal [facility] Comment on above: Order Comment: Speci men Type: BLOOD SPECIMENOrdering Facility: [facility] Address: [address] [place] [address] Performed By: #### 5 7021-8 ####[facility] LABCLIA [id number] [address], [place] [address] [place] Neutrophils (Bld) [#/Vol] 4.72 10*3/uL Normal 1.45-7.50 [facility] Comment on above: Order Comment: Speci men Type: BLOOD SPECIMENOrdering Facility: [facility] Address: [address] [place] [address] Performed By: #### 5 7021-8 ####[facility] LABCLIA [id number] [place] [address] [place] Neutrophils/100 WBC (Bld) 78.4 % Normal [facility] Comment on above: Order Comment: Speci men Type: BLOOD SPECIMENOrdering Facility: [facility] Address: [address] [place] [address] Performed By: #### 5 7021-8 ####[facility] LABCLIA [id number] [place] [address] [place] Nucleated RBC (Bld) [#/Vol] 10*3/uL Normal <0.01 [facility] Comment on above: Order Comment: Speci men Type: BLOOD SPECIMENOrdering Facility: [facility] Address: [address] [place] [address] Performed By: #### 5 7021-8 ####[facility] LABCLIA [id number] [facility] [address], [facility] [place] Nucleated RBC/100 WBC (Bld) [Ratio] 0.0 /100 WBC Normal [facility] Comment on above: Order Comment: Speci men Type: BLOOD SPECIMENOrdering Facility: [facility] Address: [address] [place] [address] Performed By: #### 5 7021-8 ####[facility] LABCLIA [id number] [place] [id number] [place] Platelet mean volume (Bld) [Entitic vol] 12.1 fL Normal 9.0-12.7 [facility] Comment on above: Order Comment: Speci men Type: BLOOD SPECIMENOrdering Facility: [facility] Address: [address] [place] [address] Performed By: #### 5 7021-8 ####[facility] LABIA [id number] [place] [address] [place] Platelets (Bld) [#/Vol] 135 10*3/uL Low 150-400 [facility] Comment on above: Order Comment: Speci men Type: BLOOD SPECIMENOrdering Facility: [facility] Address: [address] [place] [address] Performed By: #### 5 7021-8 ####[facility] LABIA [id number] [place] [address] [place] RBC (Bld) [#/Vol] 3.88 10*6/uL Low 4.20-6.00 [facility] Comment on above: Order Comment: Speci men Type: BLOOD SPECIMENOrdering Facility: [facility] Address: [address] [place] [address] Performed By: #### 5 7021-8 ####[facility] LABIA [id number] [place] [id number] [place] WBC (Bld) [#/Vol] 6.02 10*3/uL Normal 3.70-11.00 [facility] Comment on above: Order Comment: Speci men Type: BLOOD SPECIMENOrdering Facility: [facility] Address: [address] [place] [address] Performed By: #### 5 7021-8 ####[facility] LABIA [id number] [place] [id number] [place] CNOVon 02-13-2025 CNOV Office Visit (GASTA5 ) -- STEPH BAUMANN ([id number]) 1950 M Date Time Provider Department 02/13/25 [...] failure to thrive Atherosclerotic heart disease of [place] coronary artery without angina pectoris Atrial fibrillation [...] situ 10/[address] 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 Normal [facility] Comprehensive metabolic 2000 panelon 02-13-2025 Albumin [Mass/Vol] 4.1 g/dL Normal 3.9-4.9 [facility] Comment on above: Order Comment: Ella rosenberg Type: BLOOD SPECIMENOrdering Facility: [facility] Address: [address] [place] [address] Performed By: #### 2 4323-8 ####[facility] LABCLIA [id number] [place] [address] [place] ALP [Catalytic activity/Vol] 70 U/L Normal 38-113 [facility] Comment on above: Order Comment: Melidai chet Type: BLOOD SPECIMENOrdering Facility: [facility] Address: [address] [place] [address] Performed By: #### 2 4323-8 ####[facility] LABCLIA [id number] [place] [address] [place] ALT [Catalytic activity/Vol] 7 U/L Low 10-54 [facility] Comment on above: Order Comment: Speci men Type: BLOOD SPECIMENOrdering Facility: [facility] Address: [address] [place] [address] Performed By: #### 2 4323-8 ####[facility] LABCLIA [id number] [place] [address] [place] Anion gap [Moles/Vol] 8 mmol/L Normal 8-15 [facility] Comment on above: Order Comment: Speci men Type: BLOOD SPECIMENOrdering Facility: [facility] Address: [address] [place], [place] [address] Performed By: #### 2 4323-8 ####[facility] LABCLIA [id number] [address] [place] [address] [place] AST [Catalytic activity/Vol] 15 U/L Normal 14-40 [facility] Comment on above: Order Comment: Speci men Type: BLOOD SPECIMENOrdering Facility: [facility] Address: [address] [place], [place] [address] Performed By: #### 2 4323-8 ####[facility] LABCLIA [id number] [address] [place] [address] [place] Bilirubin [Mass/Vol] 0.3 mg/dL Normal 0.2-1.3 [facility] Comment on above: Order Comment: Speci men Type: BLOOD SPECIMENOrdering Facility: [facility] Address: [address] [place], [place] [address] Performed By: #### 2 4323-8 ####[facility] LABCLIA [id number] [address] [place] [address] [place] Calcium [Mass/Vol] 9.0 mg/dL Normal 8.5-10.2 [facility] Comment on above: Order Comment: Speci men Type: BLOOD SPECIMENOrdering Facility: [facility] Address: [address] [place], [place] [address] Performed By: #### 2 4323-8 ####[facility] LABCLIA [id number] [address] [place] [address] [place] Chloride [Moles/Vol] 106 mmol/L Normal 98-107 [facility] Comment on above: Order Comment: Speci men Type: BLOOD SPECIMENOrdering Facility: [facility] Address: [address] [place], [place] [address] Performed By: #### 2 4323-8 ####[facility] LABCLIA [id number] [address] [place] [address] [place] CO2 [Moles/Vol] 22 mmol/L Normal 22-30 [facility] Comment on above: Order Comment: Speci men Type: BLOOD SPECIMENOrdering Facility: [facility] Address: [address] [place] [address] Performed By: #### 2 4323-8 ####[facility] LABCLIA [id number] [place] [id number] [place] Creatinine [Mass/Vol] 0.96 mg/dL Normal 0.73-1.22 [facility] Comment on above: Order Comment: Speci men Type: BLOOD SPECIMENOrdering Facility: [facility] Address: [address] [place] [address] Performed By: #### 2 4323-8 ####[facility] LABIA [id number] [address] [place] [facility] Creatinine and Glomerular filtration rate.predicted panel (S/P/Bld) 84 mL/min/1.73m??? Normal >=60 [facility] Comment on above: Order Comment: Speci men Type: BLOOD SPECIMENOrdering Facility: [facility] Address: [address] [place] [address] Result Comment: Rossy mated Glomerular Filtration Rate [...] actual GFR. Performed By: #### 2 4323-8 ####[facility] LABIA [id number] [place] [id number] [place] Glucose [Mass/Vol] 138 mg/dL High 74-99 [facility] Comment on above: Order Comment: Speci men Type: BLOOD SPECIMENOrdering Facility: [facility] Address: [address] [place] [address] Result Comment: The [place] Diabetes Association (ADA) provides guidance for cutoff [...] Standards of Medical Care in Diabetes 2016, [employer] Diabetes Association. Diabetes Care. 2016.39(Suppl 1). Performed By: #### 2 4323-8 ####[facility] LABCLIA [id number] [place] [address] [place] Potassium [Moles/Vol] 4.1 mmol/L Normal 3.7-5.1 [facility] Comment on above: Order Comment: Speci men Type: BLOOD SPECIMENOrdering Facility: [facility] Address: [address] [place] [address] Performed By: #### 2 4323-8 ####[facility] LABCLIA [id number] [place] [address] [place] Protein [Mass/Vol] 6.8 g/dL Normal 6.3-8.0 [facility] Comment on above: Order Comment: Speci men Type: BLOOD SPECIMENOrdering Facility: [facility] Address: [address] [place] [address] Performed By: #### 2 4323-8 ####[facility] LABCLIA [id number] [place] [id number] [place] Sodium [Moles/Vol] 136 mmol/L Normal 136-144 [facility] Comment on above: Order Comment: Speci men Type: BLOOD SPECIMENOrdering Facility: [facility] Address: [address] [place] [address] Performed By: #### 2 4323-8 ####[facility] LABCLIA [id number] [place] [address] [place] Urea nitrogen [Mass/Vol] 22 mg/dL Normal 9-24 [facility] Comment on above: Order Comment: Speci men Type: BLOOD SPECIMENOrdering Facility: [facility] Address: [address] [place] [address] Performed By: #### 2 4323-8 ####[facility] [id number] [place] [address] [place] PT panel Coag (PPP)on 2024 INR Coag (PPP) [Relative time] 1.3 {INR} Normal 0.9-1.3 [facility] Comment on above: Order Comment: Speci chet Type: BLOOD SPECIMENOrdering Facility: [facility] Address: [address] [place] [address] Result Comment: Dorothy min K Antagonist (VKA) Therapeutic Range: INR 2 to 3 (Target INR of 2.5) Note: For patients treated with VKA drugs, such as warfarin, the [employer] College [employer] Physicians 2012 Guideline recommends [...] Chest 2012, 141:7S-47S Pily RA, et al. [facility] 2017, 70: 252-289 Performed By: #### 3 4528-0 ####[facility] LABIA [id number] [place] [address] [place] PT Coag (PPP) [Time] 14.1 s High 9.7-13.0 [facility] Comment on above: Order Comment: Speci men Type: BLOOD SPECIMENOrdering Facility: [facility] Address: [address] [place] [address] Performed By: #### 3 4528-0 ####[facility] LABCLIA [id number] [place] [address] [place] US ABD RIGHT [...] liver, not overtly cirrhotic. No mass. Cholelithiasis. Cushion Mat Maker: LAVINIA Transcribe Date/Time: Feb 13 2025 2:12P Dictated by : MADISON HDEZ MD This examination was interpreted and the report reviewed and electronically signed by: MADISON HDEZ MD on Feb 13 2025 2:16PM EST [id number] Normal [facility] US Abdomen RUQon 02-13-2025 IMPRESSION: Pancreas and portions of left hepatic lobe are obscured. Unremarkable appearance of the liver, not overtly cirrhotic. No mass. Cholelithiasis. Cushion Mat Maker: LAVINIA Transcribe Date/Time: Feb 13 2025 2:12P Dictated by : MADISON HDEZ MD This examination was interpreted and the report reviewed and electronically signed by: MADISON HDEZ MD on Feb 13 2025 2:16PM [facility] DIVISION OF RADIOLOGY * * [...] hydronephrosis. Ascites: None. DIVISION OF RADIOLOGY Provider, [facility] - 02/13/2025 * * *Final Report* * * DATE OF EXAM: Feb 13 2025 1:50PM TARA 1032 - US [facility] RIGHT UPPER QUADRANT / PROCEDURE REASON: [...] liver, not overtly cirrhotic. No mass. Cholelithiasis. Cushion Mat Maker: LAVINIA Transcribe Date/Time: Feb 13 2025 2:12P Dictated by : MADISON HDEZ MD This examination was interpreted and the report reviewed and electronically signed by: MADISON HDEZ MD on Feb 13 2025 2:16PM EST [facility] Radiology Study observation (narrative) [facility] US Abdomen RUQOrdered By: Brooke lacey Provider on 02-13-2025 [facility] Neurology Visit Reporton Neurology Visit Report [facility] [address] [place] [address], [address] [place] [address] OFFICE VISIT Date of Service: 01/24/25 MR#: [id number] Acct: [id number] Name: STEPH BAUMANN (RICK) Rep #: [id number] : 1950 Provider: Dr. Dwayne iniguez MD Age/Sex: 74/M Location: [facility] Status: Signed HPI HPI Chief Complaint: Details: [...] was of some benefit. 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 He has a several year history of [...] Normal basal (more content not included)... Normal [facility] Ammoniaon 01-18-2025 Ammonia (P) [Mass/Vol] ug/dL Low - [facility] Comment on above: Order Comment: 302-1 Performed By: #### L 503.5510 #### [facility] [address] [place], [place], [address] Venous blood ammonia measure mentOrdered By: Elisa Narvaez on 01-18-2025 Ammonia < 10.0 umol/L Low [facility] Venous blood ammonia measurement < 10.0 umol/L Low [facility] Ammoniaon 12-21-2024 Ammonia (P) [Moles/Vol] 22.0 umol/L Normal [facility] Comment on above: Order Comment: 302 Performed By: #### L 503.5510 #### [facility] [address], [address] Venous blood ammonia measure mentOrdered By: Elisa Narvaez on 12-21-2024 Ammonia (P) [Moles/Vol] 22.0 umol/L [facility] Cardiology Visit Reporton Cardiology Visit Report [facility] [address] [place] [address] OFFICE VISIT Date of Service: 12/12/24 MR#: [id number] Acct: [id number] Name: STEPH BAUMANN Rep #: [id number] : 1950 Provider: LON Solomon Age/Sex: 74/M Location: [facility] Status: Signed HPI HPI History of [...] with ascites. He is established with a gis scientist (Dr. Loredo- [facility]). He has also been diagnosed with prostate cancer and follows with the radiation oncologist here and is on bicalutamide. His last echocardiogram was in November 2020 demonstrating an ejection fraction of 20% with a moderately dilated LV, global hypokinesis and pulmonary systolic pressure of 50 mmHg. He is currently domiciled at [facility] and has been doing quite well. His [...] 98 Intake Visit Reasons: 9 M FU Certified Juvenile Probation Officer Required: No Is patient in pain?: No [...] bisacodyl 10 mg rectal suppository 10 mg IN DAILY PRN constipation 06/21/23 06/19/24 History sennosides [...] QWEEK 06/19/24 5 History mL subcutaneous auto-injector (Byyair Pittman) guaifenesin 100 mg/5 mL oral liquid [...] mineral oil (Fleet Mineral Oil 118 ml IN DAILY PRN 06/19/2412/12 History enema) ondansetron HCl 4 mg tablet 4 mg PO Q8H 06/19/24 12/12/24 Hist ory Have you fallen in the past year?: No [facility] Medical History Right hip pain Chronic kidney [...] Insulin dependen (more content not included)... Normal [facility] PSA SerPl-mCncon 12-12-2024 Prostate specific Ag [Mass/Vol] ng/mL Normal <2.60 [facility] Comment on above: Order Comment: Speci men Type: BLOOD SPECIMENOrdering Facility: [facility] Address: [address] [place] [address] Result Comment: Tota l PSA test methodology used is the Electrochemiluminescence Immunoassay by [employer]. Total PSA values by differing methodologies cannot be interchanged. Performed By: #### 2 857-1 ####[facility] LABCLIA [id number] [place] [address] [place] Ammoniaon 11-23-2024 Ammonia (P) [Moles/Vol] 28.0 umol/L Normal 11-32 [facility] Comment on above: Order Comment: 302-1 Performed By: #### L 503.5510 #### [facility] [address] [place], [place], [address] Venous blood ammonia measure mentOrdered By: Elisa Narvaez on 11-23-2024 Ammonia (P) [Moles/Vol] 28.0 umol/L [address] [place] [address] Ammoniaon 10-26-2024 Ammonia (P) [Moles/Vol] 17.0 umol/L Normal [facility] Comment on above: Order Comment: 302 Performed By: #### L 503.5510 #### [facility] [address] [place], [place], [address] Venous blood ammonia measure mentOrdered By: Elisa Narvaez on 10-26-2024 Ammonia (P) [Moles/Vol] 17.0 umol/L [address] [place] [address] [facility] STEPH [facility]UM[facility] ([id number]) 1950 M Date Time Provider Department 10/22/24 MERLIN LOREDO GASTA5 During your visit today, we recorded the following information about you: Luz Elena Snell 10/22/2024 1:[address] new lab orders, 12/01 Luz Elena Snell Publication Distributor Mayra Hinton RN 10/22/2024 1:47 PM Signed [...] BLOOD COUNT AND DIFFERENTIAL [SQCBCDIF] Order #: [id number] FUTURE COMPREHENSIVE METABOLIC PANEL [SQCMP] Order #: [id number] FUTURE PROTHROMBIN TIME [SQPT] Order #: [id number] FUTURE Prescriptions as of 11/14/2024 - BYDUREON [...] (more content not included)... Normal [facility] Hemoglobin A1con 10-22-2024 HbA1c (Bld) [Mass fraction] 6.3 % High 3.8-5.6 [facility] Comment on above: Order Comment: 302.1 Result Comment: Norm al < 5.7 % Prediabetic 5.7 - 6.4 % Diabetic >or= 6.5 % Please note range changes. Performed By: #### L 503.5510 #### [facility] [address] [place], [place], [address] Hemoglobin A1c percentageOrd ered By: Elisa Narvaez on 10-22-2024 HbA1c (Bld) [Mass fraction] 6.3 % High 3.8-5.6 [facility] Comment on above: Normal < 5.7 % Predi abetic 5.7 - 6.4 % Diabetic >or= 6.5 % Please note range changes. Ammoniaon 09-28-2024 Ammonia (P) [Moles/Vol] 24.0 umol/L Normal [facility] Comment on above: Order Comment: 302.1 Performed By: #### L 503.5510 #### [facility] [address] [place], [place], [address] CBC W/Diff, Automatedon Absolute Lymph 0.51 X10 3/uL Low 0.83-4.51 [facility] Comment on above: Performed By: #### L 500.4050, L300.3900, L100.0100 #### [facility] [address] [place], [address] Absolute Neut 4.8 X10 3/uL Normal 2.0-7.7 [facility] Comment on above: Performed By: #### L 500.4050, L300.3900, L100.0100 #### [facility] [address] [place], [address] Basophils/100 WBC (Bld) 0.5 % Normal 0-1 [facility] Comment on above: Performed By: #### L 500.4050, L300.3900, L100.0100 #### [facility] [address] [place], [address] Eosinophils/100 WBC (Bld) 5.3 % High 0-5 [facility] Comment on above: Performed By: #### L 500.4050, L300.3900, L100.0100 #### [facility] [address] [place], [address] Erythrocyte distribution width (RBC) [Ratio] 14.5 % Normal 11.6-14.6 [facility] Comment on above: Performed By: #### L 500.4050, L300.3900, L100.0100 #### [facility] [address] [place], [address] Hematocrit (Bld) [Volume fraction] 39.6 % Low 40-54 [facility] Comment on above: Performed By: #### L 500.4050, L300.3900, L100.0100 #### [facility] [address] [place], [address] Hemoglobin (Bld) [Mass/Vol] 12.3 g/dL Low 13.0-16.5 [facility] Comment on above: Performed By: #### L 500.4050, L300.3900, L100.0100 #### [facility] [address] [place], [address] IG% 1.500 High 0.0-0.9 [facility] Comment on above: Result Comment: IG% - Immature Granulocytes (promyelocytes, myelocytes and metamyelocytes) > 1% indicates that a LEFT SHIFT is Present. Performed By: #### L 500.4050, L300.3900, L100.0100 #### [facility] [address] [place], [address] Lymphocytes/100 WBC (Bld) 8.2 % Low 19-41 [facility] Comment on above: Performed By: #### L 500.4050, L300.3900, L100.0100 #### [facility] [address] [place], [address] MCH (RBC) [Entitic mass] 31.5 pg Normal 27.0-32.0 [facility] Comment on above: Performed By: #### L 500.4050, L300.3900, L100.0100 #### [facility] [address] [place], [address] MCHC (RBC) [Mass/Vol] 31.1 g/dL Low 32-36 [facility] Comment on above: Performed By: #### L 500.4050, L300.3900, L100.0100 #### [facility] [address] [place], [address] MCV (RBC) [Entitic vol] 101.3 fL High 80-94 [facility] Comment on above: Performed By: #### L 500.4050, L300.3900, L100.0100 #### [facility] [address] [place], [address] Monocytes/100 WBC (Bld) 6.8 % Normal 0-10 [facility] Comment on above: Performed By: #### L 500.4050, L300.3900, L100.0100 #### [facility] [address] [place], [address] Neutrophils/100 WBC (Bld) 77.7 % High 47-70 [facility] Comment on above: Performed By: #### L 500.4050, L300.3900, L100.0100 #### [facility] [address] [place], [address] Nucleated RBC (Bld) [#/Vol] 0 10*3/uL Normal 0-5 [facility] Comment on above: Performed By: #### L 500.4050, L300.3900, L100.0100 #### [facility] [address] [place], [address] Platelet mean volume (Bld) [Entitic vol] 11.0 fL Normal 6.2-12.0 [facility] Comment on above: Performed By: #### L 500.4050, L300.3900, L100.0100 #### [facility] [address] [place], [address] Platelets (Bld) [#/Vol] 135 10*3/uL Low 150-450 [facility] Comment on above: Performed By: #### L 500.4050, L300.3900, L100.0100 #### [facility] [address] [place], [address] RBC (Bld) [#/Vol] 3.91 10*6/uL Low 4.6-6.2 [facility] Comment on above: Performed By: #### L 500.4050, L300.3900, L100.0100 #### [facility] [address] [place], [address] RDW SD 54.4 fl High 35.1-43.9 [facility] Comment on above: Performed By: #### L 500.4050, L300.3900, L100.0100 #### [facility] [address] [place], [address] WBC (Bld) [#/Vol] 6.2 10*3/uL Normal 4.4-11.0 [facility] Comment on above: Performed By: #### L 500.4050, L300.3900, L100.0100 #### [facility] [address] [place], [address] Comprehensive Metabolic Prof ilon 09-10-2024 Albumin [Mass/Vol] 3.3 g/dL Normal 3.2-5.0 [facility] Comment on above: Performed By: #### L 500.4050, L300.3900, L100.0100 #### [facility] [address] [place], [address] Albumin/Globulin [Mass ratio] 1.0 {ratio} Normal 0.9-2.4 [facility] Comment on above: Performed By: #### L 500.4050, L300.3900, L100.0100 #### [facility] [address] [place], [address] ALK P 57 U/L Normal 45-117 [facility] Comment on above: Performed By: #### L 500.4050, L300.3900, L100.0100 #### [facility] [address] [place], [address] ALT [Catalytic activity/Vol] 12 U/L Low 16-61 [facility] Comment on above: Performed By: #### L 500.4050, L300.3900, L100.0100 #### [facility] [address] [place], [address] AST [Catalytic activity/Vol] 9 U/L Low 15-37 [facility] Comment on above: Performed By: #### L 500.4050, L300.3900, L100.0100 #### [facility] [address] [place], [address] Bilirubin [Mass/Vol] 0.40 mg/dL Normal 0.20-1.00 [facility] Comment on above: Result Comment: For patients on eltrombopag therapy, use of Dimension [place] TBIL is not recommended. Performed By: #### L 500.4050, L300.3900, L100.0100 #### [facility] [address] [place], [address] BUN/CRE 32.0 RATIO High 10-20 [facility] Comment on above: Performed By: #### L 500.4050, L300.3900, L100.0100 #### [facility] [address] [place], [address] CA,Total 8.4 mg/dL Low 8.5-10.1 [facility] Comment on above: Performed By: #### L 500.4050, L300.3900, L100.0100 #### [facility] [address] [place], [address] Chloride [Moles/Vol] 113 mmol/L High 98-107 [facility] Comment on above: Performed By: #### L 500.4050, L300.3900, L100.0100 #### [facility] [address] [place], [address] CO2 [Moles/Vol] 22.0 mmol/L Normal 21.0-32.0 [facility] Comment on above: Performed By: #### L 500.4050, L300.3900, L100.0100 #### [facility] [address] [place], [address] Creatinine [Mass/Vol] 0.94 mg/dL Normal 0.70-1.30 [facility] Comment on above: Result Comment: The validity of the calculated GFR GFRAA in patients over 70 years has not been determined. Clinical correlation is essential. Performed By: #### L 500.4050, L300.3900, L100.0100 #### [facility] [address] [place], [address] EST GFR - AA 102 mL/min Normal >60 [facility] Comment on above: Result Comment: Afri can Austrian GFR Calc Performed By: #### L 500.4050, L300.3900, L100.0100 #### [facility] [address] [place], [address] GAP 5 Normal 5-15 [facility] Comment on above: Performed By: #### L 500.4050, L300.3900, L100.0100 #### [facility] [address] [place], [address] GFR/1.73 sq M.predicted among non-blacks MDRD (S/P/Bld) [Vol rate/Area] 84 mL/min/{1.73_m2} Normal >60 [facility] Comment on above: Result Comment: Non- GFR Calc Performed By: #### L 500.4050, L300.3900, L100.0100 #### [facility] [address] [place], [address] Globulin (S) [Mass/Vol] 3.4 g/dL Normal 2.2-4.2 [facility] Comment on above: Performed By: #### L 500.4050, L300.3900, L100.0100 #### [facility] [address] [place], [address] Glucose [Mass/Vol] 113 mg/dL High 74-106 [facility] Comment on above: Result Comment: Fast ing Glucose result from 100 to 125 mg/dL suggests IMPAIRED HOMEOSTASIS per A.D.A. criteria. Performed By: #### L 500.4050, L300.3900, L100.0100 #### [facility] [address] [place], [address] Potassium [Moles/Vol] 4.0 mmol/L Normal 3.5-5.1 [facility] Comment on above: Performed By: #### L 500.4050, L300.3900, L100.0100 #### [facility] [address] [place], [address] Sodium [Moles/Vol] 140 mmol/L Normal 136-145 [facility] Comment on above: Performed By: #### L 500.4050, L300.3900, L100.0100 #### [facility] [address] [place], [address] T PROT 6.7 g/dL Normal 6.4-8.2 [facility] Comment on above: Performed By: #### L 500.4050, L300.3900, L100.0100 #### [facility] [address] [place], [address] Urea nitrogen [Mass/Vol] 30 mg/dL High 7-18 [facility] Comment on above: Performed By: #### L 500.4050, L300.3900, L100.0100 #### [facility] [address] [place], [address] Prothrombin Time w/INRon INR Coag (PPP) [Relative time] 1.5 {INR} Normal [facility] Comment on above: Performed By: #### L 500.4050, L300.3900, L100.0100 #### [facility] [address] [place], [address] PT Coag (PPP) [Time] 18.4 s High 11.7-14.9 [facility] Comment on above: Performed By: #### L 500.4050, L300.3900, L100.0100 #### [facility] [address] [place], [address] Liver ultrasound attenuation by transient elastographyon 08-28-2024 [...] Int J Clin Exp Med. 2015 Aug 15;8(10):07896-18. PMID: 86508283; PMCID: [id number]. Stuart Fuentes, Russel KIMBERLEE, Lukasz M, Carie F, Chasidy J, Marek O, Richard F, Harjit M, Evangelista G, Anahy A, Hien E, Herve L, Zahraa G, Reese A, Vivian U, Sariah S, Kota P, Quirino V, Vaughn V, Genevieve Fuentes, Ajit BARRIOS. Refining the Baveno elastography criteria for the definition of compensated advanced chronic liver disease. J Hepatol. 2020;74(5):3102-5729. doi: 10.1016/j.jhep.2020.11.050 . Epub 2019Oct 15. PMID: 14167688. Renita Fuentes, Dorie Wang, Nallely Fuentes, Raghav Fuentes, Willis S, Velvet Chávez, Karli Chávez, Swati Giordano. AASLD practice guidance on the clinical assessment and management of nonalcoholic fatty liver disease. Hepatology. 2022;77(5):9988-1061. doi:10.1097/HEP.8250739246 [id number] [facility] Radiology Study observation (narrative) [facility] No Panel Informationon 08-28 [facility] US Abdomen RUQon 08-28-2024 Radiology Study observation (narrative) [facility] IMPRESSION: Cirrhotic liver morphology. No suspicious lesions. Cholelithiasis. Cushion Mat Maker: LAVINIA Transcribe Date/Time: Aug 28 2024 11:22A Dictated by : MADISON HARDWICK MD This examination was interpreted and the report reviewed and electronically signed by: SOTERO CARDENAS MD on Aug 28 2024 12:15PM [facility] DIVISION OF RADIOLOGY * * [...] hydronephrosis. Ascites: None. DIVISION OF RADIOLOGY Provider, [facility] - 08/28/2024 * * *Final Report* * [...] Cirrhotic liver morphology. No suspicious lesions. Cholelithiasis. Cushion Mat Maker: PSCB Transcribe Date/Time: Aug 28 2024 11:22A Dictated by : MADISON HARDWICK MD This examination was interpreted and the report reviewed and electronically signed by: SOTERO CARDENAS MD on Aug 28 2024 12:15PM [facility] EGD Study observation Narrat nubia 08-22-2024 A31 Gastrointestinal Endoscopy Patient Name: Steph Baumann Procedure Date: 08/22/2024 10:26 AM Date of : 1950 Admit Type: Outpatient Age: 74 Room: A3 [facility] 6 Gender: Male Note Status: Finalized Attending MD: Alfred Ramsey MD, [id number] Procedure: Upper GI endoscopy Indications: Esophageal varices [...] previously scheduled. Procedure Code(s): --- Professional --- 09731, Esophagogastroduodenoscopy , flexible, transoral; diagnostic, including malinda (more content not included)... PROVATION [facility] Radiology Study observation (narrative) [facility] No Panel Informationon 03-14 IMPRESSION: PROBABLE FINE MICRONODULARITY OF LIVER, SUGGESTING CIRRHOSIS. NO FOCAL SUSPICIOUS HEPATIC LESION. CHOLELITHIASIS AND GALLBLADDER SLUDGE. NO BILE DUCT DILATION. NO SPLENOMEGALY. Cushion Mat Maker: PSCB Transcribe Date/Time: Mar 14 2024 10:54A Dictated by : PHILIP OROURKE MD This examination was interpreted and the report reviewed and electronically signed by: PHILIP OROURKE MD on Mar 14 2024 11:00AM [facility] DIVISION OF RADIOLOGY No Panel InformationOrdered By: Ccf Provider on 03-14-2024 [facility] US ABD SPLEEN - NBon 024 * * *Final Report* * * DATE OF EXAM: Mar 14 2024 10:33AM [place] [id number] - ABD SPLEEN -NB / PROCEDURE REASON: multiple [...] no splenic lesions. DIVISION OF RADIOLOGY Provider, [facility] - 03/14/2024 * * *Final Report* * [...] SLUDGE. NO BILE DUCT DILATION. NO SPLENOMEGALY. Cushion Mat Maker: LAVINIA Transcribe Date/Time: Mar 14 2024 10:54A Dictated by : PHILIP OROURKE MD This examination was interpreted and the report reviewed and electronically signed by: PHILIP OROURKE MD on Mar 14 2024 11:00AM EST [facility] Radiology Study observation (narrative) [facility] US Abdomen RUQon 03-14-2024 * * *Final [...] no splenic lesions. DIVISION OF RADIOLOGY Provider, [facility] - 03/14/2024 * * *Final Report* * [...] SLUDGE. NO BILE DUCT DILATION. NO SPLENOMEGALY. Cushion Mat [facility] Transcribe Date/Time: Mar 14 2024 10:54A Dictated by : PHILIP OROURKE MD This examination was interpreted and the report reviewed and electronically signed by: PHILIP OROURKE MD on Mar 14 2024 11:00AM EST [facility] Radiology Study observation (narrative) Florinda chávez [facility] Basophil percentageOrdered B y: Elisa Narvaez on 01-19-2024 Ammonia (P) [Moles/Vol] 42.0 umol/L 11-32 [facility] Chloride [Moles/Vol] 114 mmol/L 98-107 [facility] Glucose [Mass/Vol] 107 mg/dL 74-106 [facility] Comment on above: Fasting Glucose resu lt from 100 to 125 mg/dL suggests IMPAIRED HOMEOSTASIS per A.D.A. criteria. Potassium [Moles/Vol] 3.7 mmol/L 3.5-5.1 [facility] Sodium [Moles/Vol] 144 mmol/L 136-145 [facility] - Chemistry and C hemistry - challengeOrdered By: Elisa Narvaez on 01-19-2024 CO2 [Moles/Vol] 23.0 mmol/L 21.0-32.0 [facility] Urea nitrogen/Creatinine [Mass ratio] 21.0 mg/mg 10-20 [facility] No Panel InformationOrdered By: Elisa Narvaez on 01-19-2024 Estimated GFR (MDRD) Amer 74 mL/min >60 [facility] Comment on above: GFR Calc Estimated GFR (MDRD) Non-Af Amer 61 mL/min >60 [facility] Comment on above: Non- GFR Calc Serum or plasma calcium carol urement (mass/volume)Ordered By: Elisa Narvaez on 01-19-2024 Calcium [Mass/Vol] 9.0 mg/dL 8.5-10.1 [facility] Serum or plasma creatinine m easurement (mass/volume)Ordered By: Elisa Narvaez on 01-19-2024 Creatinine [Mass/Vol] 1.24 mg/dL 0.70-1.30 [facility] Comment on above: The validity of the calculated GFR & GFRAA in patients over 70 years has not been determined. Clinical correlation is essential. Serum or plasma urea nitroge n measurement (mass/volume)Ordered By: Elisa Narvaez on 01-19-2024 Urea nitrogen [Mass/Vol] 26 mg/dL 7-18 [facility] Thin prep Papanicolaou smear with manual screeningOrdered By: Elisa Narvaez on 01-19-2024 Thin prep Papanicolaou smear with manual screening 7 5-15 [facility] Absolute lymphocyte countOrd ered By: Elisa Narvaez on 01-11-2024 Lymphocytes Auto (Unsp spec) [#/Vol] 0.61 10*3/uL 0.83-4.51 [facility] Automated lymphocyte count a s percentage of total leukocytesOrdered By: Elisa Narvaez on 01-11-2024 Lymphocytes/100 WBC Auto (Unsp spec) 8.8 % 19-41 [facility] Basophil percentageOrdered B y: Elisa Narvaez on 01-11-2024 Basophils/100 WBC (Bld) 0.6 % 0-1 [facility] Chloride [Moles/Vol] 113 mmol/L 98-107 [facility] Eosinophils/100 WBC (Bld) 4.3 % 0-5 [facility] Glucose [Mass/Vol] 115 mg/dL 74-106 [facility] Comment on above: Fasting Glucose resu lt from 100 to 125 mg/dL suggests IMPAIRED HOMEOSTASIS per A.D.A. criteria. Hemoglobin (Bld) [Mass/Vol] 11.6 g/dL 13.0-16.5 [facility] Monocytes/100 WBC (Bld) 6.2 % 0-10 [facility] Neutrophils (Bld) [#/Vol] 5.5 10*3/uL 2.0-7.7 [facility] Neutrophils/100 WBC (Bld) 79.2 % 47-70 [facility] Potassium [Moles/Vol] 3.3 mmol/L 3.5-5.1 [facility] Sodium [Moles/Vol] 144 mmol/L 136-145 [facility] WBC (Bld) [#/Vol] 7.0 10*3/uL 4.4-11.0 [facility] Determination of erythrocyte mean corpuscular volume (MCV)Ordered By: Elisa Narvaez on 01-11-2024 MCV (RBC) [Entitic vol] 97.8 fL 80-94 [facility] Erythrocyte distribution wid th ratioOrdered By: Elisa Narvaez on 01-11-2024 Erythrocyte distribution width (RBC) [Ratio] 14.9 % 11.6-14.6 [facility] Erythrocyte distribution wid th standard deviationOrdered By: Elisa Narvaez on 01-11-2024 Erythrocyte distribution width (RBC) [Entitic vol] 53.7 fL 35.1-43.9 [facility] Hematocrit Auto (Bld) [Volum e fraction]Ordered By: Elisa Narvaez on 01-11-2024 Hematocrit (Bld) [Volume fraction] 35.6 % 40-54 [facility] Immature granulocytes/100 WB C Auto (Bld)Ordered By: Elisa Narvaez on 01-11-2024 Immature granulocytes/100 WBC (Bld) 0.900 % 0.0-0.9 [facility] Comment on above: IG% - Immature Granu locytes (promyelocytes, myelocytes and metamyelocytes) > 1% indicates that a LEFT SHIFT is Present. Laboratory - Chemistry and C hemistry - challengeOrdered By: Elisa Narvaez on 01-11-2024 CO2 [Moles/Vol] 23.0 mmol/L 21.0-32.0 [facility] Urea nitrogen/Creatinine [Mass ratio] 11.9 mg/mg 10-20 [facility] - Hematology and Cell countsOrdered By: Elisa Narvaez on 01-11-2024 MCH (RBC) [Entitic mass] 31.9 pg 27.0-32.0 [facility] MCHC (RBC) [Mass/Vol] 32.6 g/dL 32-36 [facility] Nucleated RBC/100 WBC (Bld) [Ratio] 0 % 0-5 [facility] Platelet mean volume (Bld) [Entitic vol] 12.2 fL 6.2-12.0 [facility] Platelets (Bld) [#/Vol] 132 10*3/uL 150-450 [facility] No Panel InformationOrdered By: Elisa Narvaez on 01-11-2024 Estimated GFR (MDRD) Amer 63 mL/min >60 [facility] Comment on above: GFR Calc Estimated GFR (MDRD) Non-Af Amer 52 mL/min >60 [facility] Comment on above: Non- GFR Calc RBC Auto (Bld) [#/Vol]Ordere d By: Elisa Narvaez on 01-11-2024 RBC (Bld) [#/Vol] 3.64 10*6/uL 4.6-6.2 [facility] Serum or plasma calcium carol urement (mass/volume)Ordered By: Elisa Narvaez on 01-11-2024 Calcium [Mass/Vol] 8.7 mg/dL 8.5-10.1 [facility] Serum or plasma creatinine m easurement (mass/volume)Ordered By: Elisa Narvaez on 01-11-2024 Creatinine [Mass/Vol] 1.43 mg/dL 0.70-1.30 [facility] Comment on above: The validity of the calculated GFR & GFRAA in patients over 70 years has not been determined. Clinical correlation is essential. Serum or plasma urea nitroge n measurement (mass/volume)Ordered By: Elisa Narvaez on 01-11-2024 Urea nitrogen [Mass/Vol] 17 mg/dL 7-18 [facility] Thin prep Papanicolaou smear with manual screeningOrdered By: Elisa Narvaez on 01-11-2024 Thin prep Papanicolaou smear with manual screening 8 5-15 [facility] Whole blood hemoglobin A1c/t otal hemoglobin ratio (mass fraction)Ordered By: Elisa Narvaez on 01-11-2024 HbA1c (Bld) [Mass fraction] 6.2 % 3.8-5.6 [facility] Comment on above: Normal < 5.7 % Predi abetic 5.7 - 6.4 % Diabetic >or= 6.5 % Please note range changes. Basophil percentageOrdered B y: Elisa Narvaez on 01-06-2024 Basophil percentage 3.6 mg/dL 2.5-4.9 [facility] Basophil percentageOrdered B y: Elisa Narvaez on 12-30-2023 Basophil percentage 3.5 mg/dL 2.5-4.9 [facility] Laboratory - Chemistry and C hemistry - challengeOrdered By: Elisa Narvaez on 11-14-2023 Cobalamin (Vitamin B12) [Mass/Vol] 731 pg/mL 211-911 [facility] Serum or plasma folate measu rement (mass/volume)Ordered By: Elisa Narvaez on 11-14-2023 Folate [Mass/Vol] 6.10 ng/mL 3.1-55.4 [facility] Absolute lymphocyte countOrd ered By: Elisa Narvaez on 10-19-2023 Lymphocytes Auto (Unsp spec) [#/Vol] 0.45 10*3/uL 0.83-4.51 [facility] Basophil percentageOrdered B y: Elisa Narvaez on 10-19-2023 Ammonia (P) [Moles/Vol] 49.0 umol/L 11-32 [facility] Basophils/100 WBC (Bld) 0.4 % 0-1 [facility] Chloride [Moles/Vol] 115 mmol/L 98-107 [facility] Eosinophils/100 WBC (Bld) 4.9 % 0-5 [facility] Glucose [Mass/Vol] 144 mg/dL 74-106 [facility] Comment on above: Fasting Glucose resu lt greater than or equal to 126 mg/dL suggests DIABETES MELLITUS per A.D.A. criteria. Neutrophils (Bld) [#/Vol] 5.5 10*3/uL 2.0-7.7 [facility] Neutrophils/100 WBC (Bld) 81.2 % 47-70 [facility] Potassium [Moles/Vol] 3.6 mmol/L 3.5-5.1 [facility] Sodium [Moles/Vol] 141 mmol/L 136-145 [facility] WBC (Bld) [#/Vol] 6.7 10*3/uL 4.4-11.0 [facility] Blood erythrocytes count (nu mber/volume)Ordered By: Elisa Narvaez on 10-19-2023 RBC (Bld) [#/Vol] 3.65 10*6/uL 4.6-6.2 [facility] Blood hemoglobin measurement (mass/volume)Ordered By: Elisa Narvaez on 10-19-2023 Hemoglobin (Bld) [Mass/Vol] 11.5 g/dL 13.0-16.5 [facility] Blood lymphocytes/100 leukoc ytesOrdered By: Elisa Narvaez on 10-19-2023 Lymphocytes/100 WBC (Bld) 6.7 % 19-41 [facility] Blood manual differential co mment interpretation (narrative result)Ordered By: Elisa Narvaez on 10-19-2023 Manual differential comment Timur (Bld) [Interp] SCANNED [facility] Blood monocytes/100 leukocyt esOrdered By: Elisa Narvaez on 10-19-2023 Monocytes/100 WBC (Bld) 6.4 % 0-10 [facility] Blood platelet mean volumeOr dered By: Elisa Narvaez on 10-19-2023 Platelet mean volume (Bld) [Entitic vol] 11.2 fL 6.2-12.0 [facility] Determination of erythrocyte mean corpuscular volume (MCV)Ordered By: Elisa Narvaez on 10-19-2023 MCV (RBC) [Entitic vol] 101.9 fL 80-94 [facility] Hematocrit Auto (Bld) [Volum e fraction]Ordered By: Elisa Narvaez on 10-19-2023 Hematocrit (Bld) [Volume fraction] 37.2 % 40-54 [facility] - Chemistry and C hemistry - challengeOrdered By: Elisa Narvaez on 10-19-2023 CO2 [Moles/Vol] 21.0 mmol/L 21.0-32.0 [facility] Magnesium [Mass/Vol] 2.0 mg/dL 1.6-2.6 [facility] Urea nitrogen/Creatinine [Mass ratio] 16.5 mg/mg 10-20 [facility] - Hematology and Cell countsOrdered By: Elisa Narvaez on 10-19-2023 Erythrocyte distribution width (RBC) [Entitic vol] 55.9 fL 35.1-43.9 [facility] Erythrocyte distribution width (RBC) [Ratio] 15.0 % 11.6-14.6 [facility] Immature granulocytes/100 WBC (Bld) 0.400 % 0.0-0.9 [facility] Comment on above: IG% - Immature Granu locytes (promyelocytes, myelocytes and metamyelocytes) > 1% indicates that a LEFT SHIFT is Present. MCH (RBC) [Entitic mass] 31.5 pg 27.0-32.0 [facility] Nucleated RBC/100 WBC (Bld) [Ratio] 0 % 0-5 [facility] MCHC Auto (RBC) [Mass/Vol]Or dered By: Elisa Narvaez on 10-19-2023 MCHC (RBC) [Mass/Vol] 30.9 g/dL 32-36 [facility] No Panel InformationOrdered By: Elisa Narvaez on 10-19-2023 Estimated GFR (MDRD) Amer 76 mL/min >60 [facility] Comment on above: GFR Calc Estimated GFR (MDRD) Non-Af Amer 63 mL/min >60 [facility] Comment on above: Non- GFR Calc Platelets bldOrdered By: Dante Narvaez on 10-19-2023 Platelets (Bld) [#/Vol] 144 10*3/uL 150-450 [facility] Serum or plasma calcium carol urement (mass/volume)Ordered By: Elisa Narvaez on 10-19-2023 Calcium [Mass/Vol] 8.8 mg/dL 8.5-10.1 [facility] Serum or plasma creatinine m easurement (mass/volume)Ordered By: Elisa Narvaez on 10-19-2023 Creatinine [Mass/Vol] 1.21 mg/dL 0.70-1.30 [facility] Comment on above: The validity of the calculated GFR & GFRAA in patients over 70 years has not been determined. Clinical correlation is essential. Serum or plasma urea nitroge n measurement (mass/volume)Ordered By: Elisa Narvaez on 10-19-2023 Urea nitrogen [Mass/Vol] 20 mg/dL 7-18 [facility] Thin prep Papanicolaou smear with manual screeningOrdered By: Elisa Narvaez on 10-19-2023 Thin prep Papanicolaou smear with manual screening 5 5-15 [facility] Basophil percentageOrdered B y: Elisa Narvaez on 08-22-2023 Basophil percentage 107 mg/dL <200 [facility] Basophil percentage 91 mg/dL <199 [facility] Cholesterol [Mass/Vol] 107 mg/dL <200 [facility] Comment on above: <200 mg/dL Desirable 200-240 mg/dL Borderline >240 mg/dL High Risk Triglyceride [Mass/Vol] 91 mg/dL <199 [facility] Comment on above: The drugs N-Acetylcy steine and Metamizole may falsely depress this assay.Serum Triglycerides Reference Interval Normal <150 mg/dL Borderline high 150 - 199 mg/dL High 200 - 499 mg/dL Very High > or = 500 mg/dL Serum or plasma cholesterol in HDL measurement (mass/volume)Ordered By: Elisa Narvaez on 08-22-2023 Cholesterol in HDL [Mass/Vol] 31 mg/dL >40 [facility] Comment on above: The drugs N-Acetylcy steine and Metamizole may falsely depress this assay. Reference Range HDL <40 mg/dL Low HDL Cholesterol HDL >or= 60 mg/dL High HDL Cholesterol Serum or plasma cholesterol in VLDL measurement (mass/volume)Ordered By: Elisa Narvaez on 08-22-2023 Cholesterol in VLDL [Mass/Vol] 18 mg/dL 5-40 [facility] Serum or plasma low density lipoprotein (LDL) cholesterol measurement (mass/volume)Ordered By: Elisa Narvaez on 08-22-2023 Cholesterol in LDL [Mass/Vol] 58 mg/dL 0-130 [facility] No Panel InformationOrdered By: Elisa Narvaez on 08-08-2023 Urine Microalbumin/Creatinine Ratio 452.1 mg/g CRE <30 [facility] 452.1 mg/g CRE <30 [facility] Thin prep Papanicolaou smear with manual screeningOrdered By: Elisa Narvaez on 08-08-2023 Thin prep Papanicolaou smear with manual screening 538.0 mg/L NO RANGE EST. [facility] Urine creatinine measurement (mass/volume)Ordered By: Elisa Narvaez on 08-08-2023 Creatinine (U) [Mass/Vol] 119.00 mg/dL NO RANGE EST. [facility] Basophil percentageOrdered B y: [facility] on 08-05-2023 Basophil percentage 122 mg/dL 74-106 [facility] Basophil percentage 6.4 g/dL 6.4-8.2 [facility] Basophil percentage 0.40 mg/dL 0.20-1.00 [facility] Basophil percentage 140 mmol/L 136-145 [facility] Basophil percentage 4.1 mmol/L 3.5-5.1 [facility] Basophil percentage 115 mmol/L 98-107 [facility] Basophils (Bld) [#/Vol] 4.0 10*3/uL 4.4-11.0 [facility] Bilirubin [Mass/Vol] 0.40 mg/dL 0.20-1.00 [facility] Comment on above: For patients on eltr ombopag therapy, use of Dimension [place] TBIL is not recommended. Chloride [Moles/Vol] 115 mmol/L 98-107 [facility] Glucose [Mass/Vol] 122 mg/dL 74-106 [facility] Comment on above: Fasting Glucose resu lt from 100 to 125 mg/dL suggests IMPAIRED HOMEOSTASIS per A.D.A. criteria. Potassium [Moles/Vol] 4.1 mmol/L 3.5-5.1 [facility] Protein [Mass/Vol] 6.4 g/dL 6.4-8.2 [facility] Sodium [Moles/Vol] 140 mmol/L 136-145 [facility] WBC (Bld) [#/Vol] 4.0 10*3/uL 4.4-11.0 [facility] Blood erythrocytes count (nu mber/volume)Ordered By: [facility] on 08-05-2023 RBC (Bld) [#/Vol] 3.76 10*6/uL 4.6-6.2 [facility] Blood hemoglobin measurement (mass/volume)Ordered By: [facility] on 08-05-2023 Hemoglobin (Bld) [Mass/Vol] 12.0 g/dL 13.0-16.5 [facility] Blood platelet mean volumeOr dered By: [facility] on 08-05-2023 Platelet mean volume (Bld) [Entitic vol] 11.9 fL 6.2-12.0 [facility] Determination of erythrocyte mean corpuscular volume (MCV)Ordered By: [facility] on 08-05-2023 MCV (RBC) [Entitic vol] 102.1 fL 80-94 [facility] Hematocrit Auto (Bld) [Volum e fraction]Ordered By: [facility] on 08-05-2023 Hematocrit (Bld) [Volume fraction] 38.4 % 40-54 [facility] INR in Blood by Coagulation assayOrdered By: [facility] on 08-05-2023 INR Coag (Bld) [Relative time] 1.7 {INR} [facility] Laboratory - Chemistry and C hemistry - challengeOrdered By: [facility] on 08-05-2023 ALP [Catalytic activity/Vol] 99 U/L 45-117 [facility] ALT [Catalytic activity/Vol] 17 U/L 16-61 [facility] CO2 [Moles/Vol] 23.0 mmol/L 21.0-32.0 [facility] Globulin (S) [Mass/Vol] 3.5 g/dL 2.2-4.2 [facility] Urea nitrogen/Creatinine [Mass ratio] 17.5 mg/mg 10-20 [facility] Laboratory - CoagulationOrde red By: [facility] on 08-05-2023 aPTT Coag (Bld) [Time] 34.6 s 24.1-36.2 [facility] PT Coag (PPP) [Time] 20.1 s 11.7-14.9 [facility] Laboratory - Hematology and Cell countsOrdered By: [facility] on 08-05-2023 Erythrocyte distribution width (RBC) [Entitic vol] 52.3 fL 35.1-43.9 [facility] Erythrocyte distribution width (RBC) [Ratio] 13.8 % 11.6-14.6 [facility] MCH (RBC) [Entitic mass] 31.9 pg 27.0-32.0 [facility] MCHC Auto (RBC) [Mass/Vol]Or dered By: [facility] on 08-05-2023 MCHC (RBC) [Mass/Vol] 31.3 g/dL 32-36 [facility] No Panel InformationOrdered By: [facility] on 08-05-2023 Estimated GFR (MDRD) Amer 81 mL/min >60 [facility] Comment on above: GFR Calc Estimated GFR (MDRD) Non-Af Amer 67 mL/min >60 [facility] Comment on above: Non- GFR Calc 31.9 pg 27.0-32.0 [facility] 13.8 % 11.6-14.6 [facility] 52.3 fl 35.1-43.9 [facility] 20.1 SECONDS 11.7-14.9 [facility] 34.6 Seconds 24.1-36.2 [facility] 67 mL/min >60 [facility] 81 mL/min >60 [facility] 17.5 RATIO 10-20 [facility] 3.5 g/dL 2.2-4.2 [facility] 99 U/L 45-117 [facility] 17 U/L 16-61 [facility] 23.0 mmol/L 21.0-32.0 [facility] Platelets bldOrdered By: [facility] on 08-05-2023 Platelets (Bld) [#/Vol] 128 10*3/uL 150-450 [facility] Serum or plasma albumin carol urement (mass/volume)Ordered By: [facility] on 08-05-2023 Albumin [Mass/Vol] 2.9 g/dL 3.2-5.0 [facility] Serum or plasma albumin/glob ulin mass ratioOrdered By: [facility] on 08-05-2023 Albumin/Globulin [Mass ratio] 0.8 {ratio} 0.9-2.4 [facility] Serum or plasma calcium carol urement (mass/volume)Ordered By: [facility] on 08-05-2023 Calcium [Mass/Vol] 8.5 mg/dL 8.5-10.1 [facility] Serum or plasma creatinine m easurement (mass/volume)Ordered By: [facility] on 08-05-2023 Creatinine [Mass/Vol] 1.14 mg/dL 0.70-1.30 [facility] Comment on above: The validity of the calculated GFR & GFRAA in patients over 70 years has not been determined. Clinical correlation is essential. Serum or plasma urea nitroge n measurement (mass/volume)Ordered By: [facility] on 08-05-2023 Urea nitrogen [Mass/Vol] 20 mg/dL 7-18 [facility] Thin prep Papanicolaou smear with manual screeningOrdered By: [facility] on 08-05-2023 Thin prep Papanicolaou smear with manual screening 13 U/L 15-37 [facility] Thin prep Papanicolaou smear with manual screening 2 5-15 [facility] Basophil percentageOrdered B y: Elisa Narvaez on 07-21-2023 Ammonia (P) [Moles/Vol] 41.0 umol/L [facility] Basophil percentage 41.0 umol/L [facility] Basophil percentageOrdered B y: Elisa Narvaez on 07-19-2023 Ammonia (P) [Moles/Vol] 44.0 umol/L [facility] Basophil percentage 44.0 umol/L [facility] Absolute lymphocyte countOrd ered By: Elisa Narvaez on 07-15-2023 Lymphocytes Auto (Unsp spec) [#/Vol] 0.40 10*3/uL 0.83-4.51 [facility] Basophil percentageOrdered B y: Elisa Narvaez on 07-15-2023 Basophil percentage 122 mg/dL 74-106 [facility] Basophil percentage 141 mmol/L 136-145 [facility] Basophil percentage 4.0 mmol/L 3.5-5.1 [facility] Basophil percentage 115 mmol/L 98-107 [facility] Basophils (Bld) [#/Vol] 5.8 10*3/uL 4.4-11.0 [facility] Basophils (Bld) [#/Vol] 4.7 10*3/uL 2.0-7.7 [facility] Basophils/100 WBC (Bld) 80.9 % 47-70 [facility] Basophils/100 WBC (Bld) 4.8 % 0-5 [facility] Basophils/100 WBC (Bld) 0.5 % 0-1 [facility] Chloride [Moles/Vol] 115 mmol/L 98-107 [facility] Eosinophils/100 WBC (Bld) 4.8 % 0-5 [facility] Glucose [Mass/Vol] 122 mg/dL 74-106 [facility] Comment on above: Fasting Glucose resu lt from 100 to 125 mg/dL suggests IMPAIRED HOMEOSTASIS per A.D.A. criteria. Neutrophils (Bld) [#/Vol] 4.7 10*3/uL 2.0-7.7 [facility] Neutrophils/100 WBC (Bld) 80.9 % 47-70 [facility] Potassium [Moles/Vol] 4.0 mmol/L 3.5-5.1 [facility] Sodium [Moles/Vol] 141 mmol/L 136-145 [facility] WBC (Bld) [#/Vol] 5.8 10*3/uL 4.4-11.0 [facility] Blood erythrocytes count (nu mber/volume)Ordered By: Elisa Narvaez on 07-15-2023 RBC (Bld) [#/Vol] 3.93 10*6/uL 4.6-6.2 [facility] Blood hemoglobin measurement (mass/volume)Ordered By: Elisa Narvaez on 07-15-2023 Hemoglobin (Bld) [Mass/Vol] 12.7 g/dL 13.0-16.5 [facility] Blood lymphocytes/100 leukoc ytesOrdered By: Elisa Narvaez on 07-15-2023 Lymphocytes/100 WBC (Bld) 6.9 % 19-41 [facility] Blood monocytes/100 leukocyt esOrdered By: Elisa Narvaez on 07-15-2023 Monocytes/100 WBC (Bld) 6.4 % 0-10 [facility] Blood platelet mean volumeOr dered By: Elisa Narvaez on 07-15-2023 Platelet mean volume (Bld) [Entitic vol] 11.2 fL 6.2-12.0 [facility] Determination of erythrocyte mean corpuscular volume (MCV)Ordered By: Elisa Narvaez on 07-15-2023 MCV (RBC) [Entitic vol] 100.3 fL 80-94 [facility] Hematocrit Auto (Bld) [Volum e fraction]Ordered By: Elisaely Narvaez on 07-15-2023 Hematocrit (Bld) [Volume fraction] 39.4 % 40-54 [facility] - Chemistry and C hemistry - challengeOrdered By: Elisaely Narvaez on 07-15-2023 CO2 [Moles/Vol] 21.0 mmol/L 21.0-32.0 [facility] Magnesium [Mass/Vol] 2.3 mg/dL 1.6-2.6 [facility] Urea nitrogen/Creatinine [Mass ratio] 14.7 mg/mg 10-20 [facility] - Hematology and Cell countsOrdered By: Elisaely Narvaez on 07-15-2023 Erythrocyte distribution width (RBC) [Entitic vol] 55.5 fL 35.1-43.9 [facility] Erythrocyte distribution width (RBC) [Ratio] 14.9 % 11.6-14.6 [facility] Immature granulocytes/100 WBC (Bld) 0.500 % 0.0-0.9 [facility] Comment on above: IG% - Immature Granu locytes (promyelocytes, myelocytes and metamyelocytes) > 1% indicates that a LEFT SHIFT is Present. MCH (RBC) [Entitic mass] 32.3 pg 27.0-32.0 [facility] Nucleated RBC/100 WBC (Bld) [Ratio] 0 % 0-5 [facility] Auto (RBC) [Mass/Vol]Or dered By: Elisa Narvaez on 07-15-2023 MCHC (RBC) [Mass/Vol] 32.2 g/dL 32-36 [facility] No Panel InformationOrdered By: Elisa Narvaez on 07-15-2023 Estimated GFR (MDRD) Amer 80 mL/min >60 [facility] Comment on above: GFR Calc Estimated GFR (MDRD) Non-Af Amer 66 mL/min >60 [facility] Comment on above: Non- GFR Calc 32.3 pg 27.0-32.0 [facility] 14.9 % 11.6-14.6 [facility] 55.5 fl 35.1-43.9 [facility] 0.500 % 0.0-0.9 [facility] 0 % 0-5 [facility] 66 mL/min >60 [facility] 80 mL/min >60 [facility] 14.7 RATIO 10-20 [facility] 2.3 mg/dL 1.6-2.6 [facility] 21.0 mmol/L 21.0-32.0 [facility] Platelets bldOrdered By: Dante Narvaez on 07-15-2023 Platelets (Bld) [#/Vol] 134 10*3/uL 150-450 [facility] Serum or plasma calcium carol urement (mass/volume)Ordered By: Elisa Narvaez on 07-15-2023 Calcium [Mass/Vol] 8.9 mg/dL 8.5-10.1 [facility] Serum or plasma creatinine m easurement (mass/volume)Ordered By: Elisa Narvaez on 07-15-2023 Creatinine [Mass/Vol] 1.16 mg/dL 0.70-1.30 [facility] Comment on above: The validity of the calculated GFR & GFRAA in patients over 70 years has not been determined. Clinical correlation is essential. Serum or plasma urea nitroge n measurement (mass/volume)Ordered By: Elisa Narvaez on 07-15-2023 Urea nitrogen [Mass/Vol] 17 mg/dL 7-18 [facility] Thin prep Papanicolaou smear with manual screeningOrdered By: Elisa Narvaez on 07-15-2023 Thin prep Papanicolaou smear with manual screening 5 5-15 [facility] Absolute lymphocyte countOrd ered By: Elisa Narvaez on 07-08-2023 Lymphocytes Auto (Unsp spec) [#/Vol] 0.47 10*3/uL 0.83-4.51 [facility] Basophil percentageOrdered B y: Elisa Narvaez on 07-08-2023 Basophil percentage 156 mg/dL 74-106 [facility] Basophil percentage 136 mmol/L 136-145 [facility] Basophil percentage 4.4 mmol/L 3.5-5.1 [facility] Basophil percentage 109 mmol/L 98-107 [facility] Basophils (Bld) [#/Vol] 7.4 10*3/uL 4.4-11.0 [facility] Basophils (Bld) [#/Vol] 6.1 10*3/uL 2.0-7.7 [facility] Basophils/100 WBC (Bld) 82.6 % 47-70 [facility] [facility]/100 WBC (Bld) 3.9 % 0-5 [facility] Basophils/100 WBC (Bld) 0.8 % 0-1 [facility] Chloride [Moles/Vol] 109 mmol/L 98-107 [facility] Eosinophils/100 WBC (Bld) 3.9 % 0-5 [facility] Glucose [Mass/Vol] 156 mg/dL 74-106 [facility] Comment on above: Fasting Glucose resu lt greater than or equal to 126 mg/dL suggests DIABETES MELLITUS per A.D.A. criteria. Neutrophils (Bld) [#/Vol] 6.1 10*3/uL 2.0-7.7 [facility] Neutrophils/100 WBC (Bld) 82.6 % 47-70 [facility] Potassium [Moles/Vol] 4.4 mmol/L 3.5-5.1 [facility] Sodium [Moles/Vol] 136 mmol/L 136-145 [facility] WBC (Bld) [#/Vol] 7.4 10*3/uL 4.4-11.0 [facility] Blood erythrocytes count (nu mber/volume)Ordered By: Elisa Narvaez on 07-08-2023 RBC (Bld) [#/Vol] 3.97 10*6/uL 4.6-6.2 [facility] Blood hemoglobin measurement (mass/volume)Ordered By: Elisa Narvaez on 07-08-2023 Hemoglobin (Bld) [Mass/Vol] 12.7 g/dL 13.0-16.5 [facility] Blood lymphocytes/100 leukoc ytesOrdered By: Elisa Narvaez on 07-08-2023 Lymphocytes/100 WBC (Bld) 6.3 % 19-41 [facility] Blood monocytes/100 leukocyt esOrdered By: Elisa Narvaez on 07-08-2023 Monocytes/100 WBC (Bld) 5.6 % 0-10 [facility] Blood platelet mean volumeOr dered By: Elisa Narvaez on 07-08-2023 Platelet mean volume (Bld) [Entitic vol] 12.1 fL 6.2-12.0 [facility] Determination of erythrocyte mean corpuscular volume (MCV)Ordered By: Elisa Narvaez on 07-08-2023 MCV (RBC) [Entitic vol] 103.0 fL 80-94 [facility] Hematocrit Auto (Bld) [Volum e fraction]Ordered By: Elisa Narvaez on 07-08-2023 Hematocrit (Bld) [Volume fraction] 40.9 % 40-54 [facility] - Chemistry and C hemistry - challengeOrdered By: Elisa Narvaez on 07-08-2023 CO2 [Moles/Vol] 20.0 mmol/L 21.0-32.0 [facility] Magnesium [Mass/Vol] 2.3 mg/dL 1.6-2.6 [facility] Urea nitrogen/Creatinine [Mass ratio] 14.0 mg/mg 10-20 [facility] - Hematology and Cell countsOrdered By: Elisa Narvaez on 07-08-2023 Erythrocyte distribution width (RBC) [Entitic vol] 55.7 fL 35.1-43.9 [facility] Erythrocyte distribution width (RBC) [Ratio] 14.8 % 11.6-14.6 [facility] Immature granulocytes/100 WBC (Bld) 0.800 % 0.0-0.9 [facility] Comment on above: IG% - Immature Granu locytes (promyelocytes, myelocytes and metamyelocytes) > 1% indicates that a LEFT SHIFT is Present. MCH (RBC) [Entitic mass] 32.0 pg 27.0-32.0 [facility] Nucleated RBC/100 WBC (Bld) [Ratio] 0 % 0-5 [facility] MCHC Auto (RBC) [Mass/Vol]Or dered By: Elisa Narvaez on 07-08-2023 MCHC (RBC) [Mass/Vol] 31.1 g/dL 32-36 [facility] No Panel InformationOrdered By: Elisa Narvaez on 07-08-2023 Estimated GFR (MDRD) Amer 81 mL/min >60 [facility] Comment on above: GFR Calc Estimated GFR (MDRD) Non-Af Amer 67 mL/min >60 [facility] Comment on above: Non- GFR Calc 32.0 pg 27.0-32.0 [facility] 14.8 % 11.6-14.6 [facility] 55.7 fl 35.1-43.9 [facility] 0.800 % 0.0-0.9 [facility] 0 % 0-5 [facility] 67 mL/min >60 [facility] 81 mL/min >60 [facility] 14.0 RATIO 10-20 [facility] 2.3 mg/dL 1.6-2.6 [facility] 20.0 mmol/L 21.0-32.0 [facility] Platelets bldOrdered By: Dante Narvaez on 07-08-2023 Platelets (Bld) [#/Vol] 147 10*3/uL 150-450 [facility] Serum or plasma calcium carol urement (mass/volume)Ordered By: Elisa Narvaez on 07-08-2023 Calcium [Mass/Vol] 8.9 mg/dL 8.5-10.1 [facility] Serum or plasma creatinine m easurement (mass/volume)Ordered By: Elisa Narvaez on 07-08-2023 Creatinine [Mass/Vol] 1.14 mg/dL 0.70-1.30 [facility] Comment on above: The validity of the calculated GFR & GFRAA in patients over 70 years has not been determined. Clinical correlation is essential. Serum or plasma urea nitroge n measurement (mass/volume)Ordered By: Elisa Narvaez on 07-08-2023 Urea nitrogen [Mass/Vol] 16 mg/dL 7-18 [facility] Thin prep Papanicolaou smear with manual screeningOrdered By: Elisa Narvaez on 07-08-2023 Thin prep Papanicolaou smear with manual screening 7 5-15 [facility] Basophil percentageOrdered B y: Elisa Narvaez on 07-01-2023 Basophil percentage 137 mg/dL 74-106 [facility] Basophil percentage 140 mmol/L 136-145 [facility] Basophil percentage 3.9 mmol/L 3.5-5.1 [facility] Basophil percentage 113 mmol/L 98-107 [facility] Chloride [Moles/Vol] 113 mmol/L 98-107 [facility] Glucose [Mass/Vol] 137 mg/dL 74-106 [facility] Comment on above: Fasting Glucose resu lt greater than or equal to 126 mg/dL suggests DIABETES MELLITUS per A.D.A. criteria. Potassium [Moles/Vol] 3.9 mmol/L 3.5-5.1 [facility] Sodium [Moles/Vol] 140 mmol/L 136-145 [facility] - Chemistry and C hemistry - challengeOrdered By: Elisa Narvaez on 07-01-2023 CO2 [Moles/Vol] 22.0 mmol/L 21.0-32.0 [facility] Urea nitrogen/Creatinine [Mass ratio] 11.5 mg/mg 10-20 [facility] No Panel InformationOrdered By: Elisa Narvaez on 07-01-2023 Estimated GFR (MDRD) Amer 70 mL/min >60 [facility] Comment on above: GFR Calc Estimated GFR (MDRD) Non-Af Amer 58 mL/min >60 [facility] Comment on above: Non- GFR Calc 58 mL/min >60 [facility] 70 mL/min >60 [facility] 11.5 RATIO 10-20 [facility] 22.0 mmol/L 21.0-32.0 [facility] Serum or plasma calcium carol urement (mass/volume)Ordered By: Elisa Narvaez on 07-01-2023 Calcium [Mass/Vol] 8.7 mg/dL 8.5-10.1 [facility] Serum or plasma creatinine m easurement (mass/volume)Ordered By: Elisa Narvaez on 07-01-2023 Creatinine [Mass/Vol] 1.30 mg/dL 0.70-1.30 [facility] Comment on above: The validity of the calculated GFR & GFRAA in patients over 70 years has not been determined. Clinical correlation is essential. Serum or plasma urea nitroge n measurement (mass/volume)Ordered By: Elisa Narvaez on 07-01-2023 Urea nitrogen [Mass/Vol] 15 mg/dL 7-18 [facility] Thin prep Papanicolaou smear with manual screeningOrdered By: Elisa Narvaez on 07-01-2023 Thin prep Papanicolaou smear with manual screening 5 5-15 [facility] Basophil percentageOrdered B y: Norris Esteban on 06-26-2023 Ammonia (P) [Moles/Vol] 38.0 umol/L [facility] Basophil percentage 167 mg/dL 74-106 [facility] Basophil percentage 6.9 g/dL 6.4-8.2 [facility] Basophil percentage 1.00 mg/dL 0.20-1.00 [facility] Basophil percentage 137 mmol/L 136-145 [facility] Basophil percentage 4.1 mmol/L 3.5-5.1 [facility] Basophil percentage 106 mmol/L 98-107 [facility] Basophil percentage 38.0 umol/L [facility] Bilirubin [Mass/Vol] 1.00 mg/dL 0.20-1.00 [facility] Comment on above: For patients on eltr ombopag therapy, use of Dimension [place] TBIL is not recommended. Chloride [Moles/Vol] 106 mmol/L 98-107 [facility] Glucose [Mass/Vol] 167 mg/dL 74-106 [facility] Comment on above: Fasting Glucose resu lt greater than or equal to 126 mg/dL suggests DIABETES MELLITUS per A.D.A. criteria. Potassium [Moles/Vol] 4.1 mmol/L 3.5-5.1 [facility] Protein [Mass/Vol] 6.9 g/dL 6.4-8.2 [facility] Sodium [Moles/Vol] 137 mmol/L 136-145 [facility] - Chemistry and C hemistry - challengeOrdered By: Norris Orellana on 06-26-2023 ALP [Catalytic activity/Vol] 127 U/L - [facility] ALT [Catalytic activity/Vol] 34 U/L [facility] CO2 [Moles/Vol] 23.0 mmol/L 21.0-32.0 [facility] Globulin (S) [Mass/Vol] 3.8 g/dL 2.2-4.2 [facility] Urea nitrogen/Creatinine [Mass ratio] 16.5 mg/mg 08-26 [facility] No Panel InformationOrdered By: Norris rOellana on 06-26-2023 Estimated Creatinine Clearance Calc 58.92 ml/min [facility] Estimated GFR (MDRD) Amer 81 mL/min >60 [facility] Comment on above: GFR Calc Estimated GFR (MDRD) Non-Af Amer 67 mL/min >60 [facility] Comment on above: Non- GFR Calc 67 mL/min >60 [facility] 81 mL/min >60 [facility] 58.92 ml/min [facility] 16.5 RATIO 08-26 [facility] 3.8 g/dL 2.2-4.2 [facility] 127 U/L [facility] 34 U/L [facility] 23.0 mmol/L 21.0-32.0 [facility] Serum or plasma albumin carol urement (mass/volume)Ordered By: Norris Orellana on 06-26-2023 Albumin [Mass/Vol] 3.1 g/dL 3.2-5.0 [facility] Serum or plasma albumin/glob ulin mass ratioOrdered By: Norris Orellana on 06-26-2023 Albumin/Globulin [Mass ratio] 0.8 {ratio} 0.9-2.4 [facility] Serum or plasma calcium carol urement (mass/volume)Ordered By: Norris Orellana on 06-26-2023 Calcium [Mass/Vol] 9.0 mg/dL 8.5-10.1 [facility] Serum or plasma creatinine m easurement (mass/volume)Ordered By: Norris Orellana on 06-26-2023 Creatinine [Mass/Vol] 1.15 mg/dL 0.70-1.30 [facility] Comment on above: The validity of the calculated GFR & GFRAA in patients over 70 years has not been determined. Clinical correlation is essential. Serum or plasma urea nitroge n measurement (mass/volume)Ordered By: Norris Orellana on 06-26-2023 Urea nitrogen [Mass/Vol] 19 mg/dL 7-18 [facility] Thin prep Papanicolaou smear with manual screeningOrdered By: Norris Orellana on 06-26-2023 Thin prep Papanicolaou smear with manual screening 28 U/L 15- [facility] Thin prep Papanicolaou smear with manual screening 8 5-15 [facility] Absolute lymphocyte countOrd ered By: Norris Orellana on 06-25-2023 Lymphocytes Auto (Unsp spec) [#/Vol] 0.47 10*3/uL 0.83-4.51 [facility] Basophil percentageOrdered B y: Norris Orellana on 06-25-2023 Basophils (Bld) [#/Vol] 8.2 10*3/uL 4.4-11.0 [facility] Basophils (Bld) [#/Vol] 6.6 10*3/uL 2.0-7.7 [facility] Basophils/100 WBC (Bld) 81.0 % 47-70 [facility] Basophils/100 WBC (Bld) 4.2 % 0-5 [facility] Basophils/100 WBC (Bld) 0.7 % 0-1 [facility] Eosinophils/100 WBC (Bld) 4.2 % 0-5 [facility] Neutrophils (Bld) [#/Vol] 6.6 10*3/uL 2.0-7.7 [facility] Neutrophils/100 WBC (Bld) 81.0 % 47-70 [facility] WBC (Bld) [#/Vol] 8.2 10*3/uL 4.4-11.0 [facility] Blood erythrocytes count (nu mber/volume)Ordered By: Norris Orellana on 06-25-2023 RBC (Bld) [#/Vol] 4.06 10*6/uL 4.6-6.2 [facility] Blood hemoglobin measurement (mass/volume)Ordered By: Norris Orellana on 06-25-2023 Hemoglobin (Bld) [Mass/Vol] 13.1 g/dL 13.0-16.5 [facility] Blood lymphocytes/100 leukoc ytesOrdered By: Norris Orellana on 06-25-2023 Lymphocytes/100 WBC (Bld) 5.7 % 19-41 [facility] Blood manual differential co mment interpretation (narrative result)Ordered By: Norris Orellana on 06-25-2023 Manual differential comment Timur (Bld) [Interp] SCANNED [facility] Comment on above: LYMPHOPENIA NOTED Blood monocytes/100 leukocyt esOrdered By: Norris Orellana on 06-25-2023 Monocytes/100 WBC (Bld) 7.7 % 0-10 [facility] Blood platelet mean volumeOr dered By: Norris Orellana on 06-25-2023 Platelet mean volume (Bld) [Entitic vol] 10.8 fL 6.2-12.0 [facility] Determination of erythrocyte mean corpuscular volume (MCV)Ordered By: Norris Orellana on 06-25-2023 MCV (RBC) [Entitic vol] 97.8 fL 80-94 [facility] Glucose Glucometer (BldC) [M ass/Vol]Ordered By: Norris Orellana on 06-25-2023 Glucose [Mass/Vol] 144 mg/dL 74-106 [facility] Comment on above: MANAGEMENT OF PATIEN T CARE PER NURSING PROTOCOL Hematocrit Auto (Bld) [Volum e fraction]Ordered By: Norris Orellana on 06-25-2023 Hematocrit (Bld) [Volume fraction] 39.7 % 40-54 [facility] - Hematology and Cell countsOrdered By: Norris Orellana on 06-25-2023 Erythrocyte distribution width (RBC) [Entitic vol] 49.6 fL 35.1-43.9 [facility] Erythrocyte distribution width (RBC) [Ratio] 13.7 % 11.6-14.6 [facility] Immature granulocytes/100 WBC (Bld) 0.700 % 0.0-0.9 [facility] Comment on above: IG% - Immature Granu locytes (promyelocytes, myelocytes and metamyelocytes) > 1% indicates that a LEFT SHIFT is Present. MCH (RBC) [Entitic mass] 32.3 pg 27.0-32.0 [facility] Nucleated RBC/100 WBC (Bld) [Ratio] 0 % 0-5 [facility] MCHC Auto (RBC) [Mass/Vol]Or dered By: Norris Orellana on 06-25-2023 MCHC (RBC) [Mass/Vol] 33.0 g/dL 32-36 [facility] No Panel InformationOrdered By: Norris Orellana on 06-25-2023 32.3 pg 27.0-32.0 [facility] 13.7 % 11.6-14.6 [facility] 49.6 fl 35.1-43.9 [facility] 0.700 % 0.0-0.9 [facility] 0 % 0-5 [facility] Platelets bldOrdered By: Carmine Orellana on 06-25-2023 Platelets (Bld) [#/Vol] 174 10*3/uL 150-450 [facility] Basophil percentageOrdered B y: Norris Orellana on 06-23-2023 Basophil percentage 2.3 mg/dL 2.5-4.9 [facility] Direct bilirubinOrdered By: Norris Orellana on 06-23-2023 Bilirubin.direct [Mass/Vol] 0.42 mg/dL 0.00-0.30 [facility] - Chemistry and C hemistry - challengeOrdered By: Norris Orellana on 06-23-2023 Magnesium [Mass/Vol] 2.2 mg/dL 1.6-2.6 [facility] No Panel InformationOrdered By: Norris Orellana on 06-23-2023 2.2 mg/dL 1.6-2.6 [facility] Erythrocyte sedimentation ra teOrdered By: Quynh Araya on 06-22-2023 ESR (Bld) [Velocity] 24 mm/h 0-20 [facility] Serum or plasma C reactive p rotein measurement (mass/volume)Ordered By: Quynh Araya on 06-22-2023 CRP [Mass/Vol] 76.00 mg/L 0.0-3.0 [facility] Comment on above: C-Reactive Protein ( CRP) provides useful information for thediagnosis, therapy and monitoring of inflammatory processesand associated diseases. For the evaluation of Relative Riskfor Cardiovascular Disease, a High Sensitivity CRP (HSCRP)should be ordered. Basophil percentageOrdered B y: Juan Conte on 06-21-2023 Basophil percentage 0-5 SEEN /hpf 0-5 [facility] Basophil percentage 116 mg/dL 74-106 [facility] Basophil percentage 142 mmol/L 136-145 [facility] Basophil percentage 4.2 mmol/L 3.5-5.1 [facility] Basophil percentage 107 mmol/L 98-107 [facility] Basophil percentage 30.0 umol/L 11-32 [facility] Basophils (Bld) [#/Vol] 9.2 10*3/uL 4.4-11.0 [facility] Bilirubin Test strip Ql (U)O rdered By: Juan Conte on 06-21-2023 Bilirubin Ql (U) 1 mg/dL Negative [facility] Comment on above: COLOR OF URINE MAY A FFECT DIPSTICK RESULTS. Blood erythrocytes count (nu mber/volume)Ordered By: Juan Conte on 06-21-2023 RBC (Bld) [#/Vol] 4.65 10*6/uL 4.6-6.2 [facility] Blood hemoglobin measurement (mass/volume)Ordered By: Juan Conte on 06-21-2023 Hemoglobin (Bld) [Mass/Vol] 15.0 g/dL 13.0-16.5 [facility] Blood platelet mean volumeOr dered By: Juan Conte on 06-21-2023 Platelet mean volume (Bld) [Entitic vol] 11.5 fL 6.2-12.0 [facility] Determination of erythrocyte mean corpuscular volume (MCV)Ordered By: Juan Conte on 06-21-2023 MCV (RBC) [Entitic vol] 99.6 fL 80-94 [facility] Hematocrit Auto (Bld) [Volum e fraction]Ordered By: Jaun Conte on 06-21-2023 Hematocrit (Bld) [Volume fraction] 46.3 % 40-54 [facility] Influenza virus A and B and SARS-CoV-2 (COVID-19) Ag panel - Upper respiratory specimOrdered By: Juan Conte on 06-21-2023 SARS-CoV-2 (COVID-19) RNA ANUJ+probe Ql (Resp) [facility] SARS-CoV-2 (COVID-19) RNA ANUJ+probe Ql (Resp) [facility] Ketones Test strip Ql (U)Ord ered By: Juan Conte on 06-21-2023 Ketones Ql (U) 5 mg/dl Negative [facility] - Chemistry and C hemistry - challengeOrdered By: Juan Conte on 06-21-2023 Natriuretic peptide B (Bld) [Mass/Vol] 43.4 pg/mL 0-100 [facility] Lipase [Catalytic activity/Vol] U/L 13-75 [facility] Comment on above: Please note:LIPASE r evised reference range effective 23. New Lipase methodology. Expected to produce lower values than the previous assay method. NEW Reference Range: 13 - 75 U/L [facility] Auto (RBC) [Mass/Vol]Or dered By: Juan Conte on 06-21-2023 MCHC (RBC) [Mass/Vol] 32.4 g/dL 32-36 [facility] Mucus LM Ql (Urine sed)Order ed By: Juan Conte on 06-21-2023 Mucus Ql (Urine sed) 0 SEEN /hpf [facility] Nitrite Test strip Ql (U)Ord ered By: Juan Conte on 06-21-2023 Nitrite Ql (U) Negative Negative [facility] No Panel InformationOrdered By: Juan Conte on 06-21-2023 43.4 pg/mL 0-100 [facility] Troponin I High Sensitivity 104 pg/mL 3.0-78.0 [facility] Comment on above: Please Note: New [place] t Units and Gender Specific Reference Ranges. For more information see Policy Stat Procedure [place] High Sensitivity Troponin (TNIH) and attachments. 32.3 pg 27.0-32.0 [facility] 14.4 % 11.6-14.6 [facility] 50.8 fl 35.1-43.9 [facility] 30 mL/min >60 [facility] 36 mL/min >60 [facility] 29.08 ml/min [facility] 15.0 RATIO 10-20 [facility] < 10 U/L 13-75 [facility] 104 pg/mL 3.0-78.0 [facility] 27.0 mmol/L 21.0-32.0 [facility] Platelets bldOrdered By: Laurie Conte on 06-21-2023 Platelets (Bld) [#/Vol] 204 10*3/uL 150-450 [facility] Protein Test strip Ql (U)Ord ered By: Juan Conte on 06-21-2023 Protein Ql (U) 30 mg/dl Negative [facility] Serum or plasma calcium carol urement (mass/volume)Ordered By: Juan Conte on 06-21-2023 Calcium [Mass/Vol] 9.7 mg/dL 8.5-10.1 [facility] Serum or plasma creatinine m easurement (mass/volume)Ordered By: Juan Conte on 06-21-2023 Creatinine [Mass/Vol] 2.33 mg/dL 0.70-1.30 [facility] Serum or plasma urea nitroge n measurement (mass/volume)Ordered By: Juan Conte on 06-21-2023 Urea nitrogen [Mass/Vol] 35 mg/dL 7-18 [facility] Squamous epithelial cells de tection in urine sediment by light microscopyOrdered By: Juan Conte on 06-21-2023 Epithelial cells.squamous LM Ql (Urine sed) 0-5 SEEN /hpf 0-5 [facility] Thin prep Papanicolaou smear with manual screeningOrdered By: Juan Conte on 06-21-2023 Thin prep Papanicolaou smear with manual screening 8 5-15 [facility] Urine blood detectionOrdered By: Juan Conte on 08-15-2023 RBC Ql (U) Negative Negative [facility] RBC Ql (U) 0-5 SEEN /hpf 0-5 [facility] Urine clarityOrdered By: Laurie Conte on 06-21-2023 Clarity (U) Clear Clear [facility] Urine color determinationOrd ered By: Juan Conte on 06-21-2023 Color (U) Yellow Yellow [facility] Urine glucose detectionOrder ed By: Juan Conte on 06-21-2023 Glucose Ql (U) Normal mg/dl Normal [facility] Urine leukocyte esterase det ection by dipstickOrdered By: Juan Conte on 06-21-2023 Leukocyte esterase Test strip Ql (U) 25 /ul Negative [facility] Urine pHOrdered By: Juan simental on 06-21-2023 pH (U) 6.0 [pH] 5.0 - 8.0 [facility] Urine sediment bacteria coun t by microscopy (number/high power field)Ordered By: Juan Conte on 06-21-2023 Bacteria LM.HPF (Urine sed) [#/Area] RARE /hpf None Seen [facility] Urine specific gravity measu rementOrdered By: Juan Conte on 06-21-2023 Specific gravity (U) [Rel density] 1.020 1.002-1.03 0 [facility] Urobilinogen Auto test strip Ql (U)Ordered By: Juan Conte on 06-21-2023 Urobilinogen Ql (U) 1 mg/dl Normal [facility] Absolute lymphocyte countOrd ered By: Elisa Narvaez on 06-20-2023 Lymphocytes Auto (Unsp spec) [#/Vol] 0.39 10*3/uL 0.83-4.51 [facility] Basophil percentageOrdered B y: Elisa Narvaez on 06-20-2023 Basophil percentage 188 mg/dL 74-106 [facility] Basophil percentage 140 mmol/L 136-145 [facility] Basophil percentage 3.8 mmol/L 3.5-5.1 [facility] Basophil percentage 108 mmol/L 98-107 [facility] Basophils (Bld) [#/Vol] 8.2 10*3/uL 4.4-11.0 [facility] Basophils (Bld) [#/Vol] 6.9 10*3/uL 2.0-7.7 [facility] Basophils/100 WBC (Bld) 84.0 % 47-70 [facility] Basophils/100 WBC (Bld) 3.6 % 0-5 [facility] Basophils/100 WBC (Bld) 0.5 % 0-1 [facility] Blood erythrocytes count (nu mber/volume)Ordered By: Elisa Narvaez on 06-20-2023 RBC (Bld) [#/Vol] 4.26 10*6/uL 4.6-6.2 [facility] Blood hemoglobin measurement (mass/volume)Ordered By: Elisa Naravez on 06-20-2023 Hemoglobin (Bld) [Mass/Vol] 13.9 g/dL 13.0-16.5 [facility] Blood lymphocytes/100 leukoc ytesOrdered By: Elisa Narvaez on 06-20-2023 Lymphocytes/100 WBC (Bld) 4.8 % 19-41 [facility] Blood monocytes/100 leukocyt esOrdered By: Elisa Narvaez on 06-20-2023 Monocytes/100 WBC (Bld) 6.4 % 0-10 [facility] Blood platelet mean volumeOr dered By: Elisa Narvaez on 06-20-2023 Platelet mean volume (Bld) [Entitic vol] 11.5 fL 6.2-12.0 [facility] Determination of erythrocyte mean corpuscular volume (MCV)Ordered By: Elisa Narvaez on 06-20-2023 MCV (RBC) [Entitic vol] 98.4 fL 80-94 [facility] Hematocrit Auto (Bld) [Volum e fraction]Ordered By: Elisa Narvaez on 06-20-2023 Hematocrit (Bld) [Volume fraction] 41.9 % 40-54 [facility] MCHC Auto (RBC) [Mass/Vol]Or dered By: Elisa Narvaez on 06-20-2023 MCHC (RBC) [Mass/Vol] 33.2 g/dL 32-36 [facility] No Panel InformationOrdered By: Elisa Narvaez on 06-20-2023 32.6 pg 27.0-32.0 [facility] 14.0 % 11.6-14.6 [facility] 48.9 fl 35.1-43.9 [facility] 0.700 % 0.0-0.9 [facility] 0 % 0-5 [facility] 58 mL/min >60 [facility] 70 mL/min >60 [facility] 16.9 RATIO 10-20 [facility] 2.4 mg/dL 1.6-2.6 [facility] 25.0 mmol/L 21.0-32.0 [facility] Platelets bldOrdered By: Dante Narvaez on 06-20-2023 Platelets (Bld) [#/Vol] 178 10*3/uL 150-450 [facility] Serum or plasma calcium carol urement (mass/volume)Ordered By: Elisa Narvaez on 06-20-2023 Calcium [Mass/Vol] 9.6 mg/dL 8.5-10.1 [facility] Serum or plasma creatinine m easurement (mass/volume)Ordered By: Elisa Narvaez on 06-20-2023 Creatinine [Mass/Vol] 1.30 mg/dL 0.70-1.30 [facility] Serum or plasma urea nitroge n measurement (mass/volume)Ordered By: Elisa Narvaez on 06-20-2023 Urea nitrogen [Mass/Vol] 22 mg/dL 7-18 [facility] Thin prep Papanicolaou smear with manual screeningOrdered By: Elisa Narvaez on 06-20-2023 Thin prep Papanicolaou smear with manual screening 7 5-15 [facility] Clostridium difficile detect ion by polymerase chain reactionOrdered By: Elisa Narvaez on 06-14-2023 C. difficile DNA ANUJ+probe Ql (Unsp spec) [facility] Stool Clostridium difficile detectionOrdered By: Elisa Narvaez on 06-14-2023 C. difficile Ql (Stl) [facility] Absolute lymphocyte countOrd ered By: Elisa Narvaez on 06-13-2023 Lymphocytes Auto (Unsp spec) [#/Vol] 0.36 10*3/uL 0.83-4.51 [facility] Basophil percentageOrdered B y: Elisa Narvaez on 06-13-2023 Basophil percentage 326 mg/dL 74-106 [facility] Basophil percentage 141 mmol/L 136-145 [facility] Basophil percentage 3.6 mmol/L 3.5-5.1 [facility] Basophil percentage 113 mmol/L 98-107 [facility] Basophils (Bld) [#/Vol] 7.2 10*3/uL 4.4-11.0 [facility] Basophils (Bld) [#/Vol] 6.1 10*3/uL 2.0-7.7 [facility] Basophils/100 WBC (Bld) 84.8 % 47-70 [facility] Basophils/100 WBC (Bld) 3.6 % 0-5 [facility] Basophils/100 WBC (Bld) 0.6 % 0-1 [facility] Blood erythrocytes count (nu mber/volume)Ordered By: Elisa Narvaez on 06-13-2023 RBC (Bld) [#/Vol] 3.72 10*6/uL 4.6-6.2 [facility] Blood hemoglobin measurement (mass/volume)Ordered By: Elisa Narvaez on 06-13-2023 Hemoglobin (Bld) [Mass/Vol] 11.8 g/dL 13.0-16.5 [facility] Blood lymphocytes/100 leukoc ytesOrdered By: Elisa Narvaez on 06-13-2023 Lymphocytes/100 WBC (Bld) 5.0 % 19-41 [facility] Blood monocytes/100 leukocyt esOrdered By: Elisa Narvaez on 06-13-2023 Monocytes/100 WBC (Bld) 4.5 % 0-10 [facility] Blood platelet mean volumeOr dered By: Elisa Narvaez on 06-13-2023 Platelet mean volume (Bld) [Entitic vol] 11.5 fL 6.2-12.0 [facility] Determination of erythrocyte mean corpuscular volume (MCV)Ordered By: Elisa Narvaez on 06-13-2023 MCV (RBC) [Entitic vol] 100.0 fL 80-94 [facility] Hematocrit Auto (Bld) [Volum e fraction]Ordered By: Elisa Narvaez on 06-13-2023 Hematocrit (Bld) [Volume fraction] 37.2 % 40-54 [facility] MCHC Auto (RBC) [Mass/Vol]Or dered By: Elisa Narvaez on 06-13-2023 MCHC (RBC) [Mass/Vol] 31.7 g/dL 32-36 [facility] No Panel InformationOrdered By: Elisa Narvaez on 06-13-2023 31.7 pg 27.0-32.0 [facility] 13.5 % 11.6-14.6 [facility] 49.7 fl 35.1-43.9 [facility] 1.500 % 0.0-0.9 [facility] 0 % 0-5 [facility] 57 mL/min >60 [facility] 69 mL/min >60 [facility] 12.1 RATIO 10-20 [facility] 1.9 mg/dL 1.6-2.6 [facility] 21.0 mmol/L 21.0-32.0 [facility] Platelets bldOrdered By: Dante Narvaez on 06-13-2023 Platelets (Bld) [#/Vol] 145 10*3/uL 150-450 [facility] Serum or plasma calcium carol urement (mass/volume)Ordered By: Elisa Narvaez on 06-13-2023 Calcium [Mass/Vol] 8.3 mg/dL 8.5-10.1 [facility] Serum or plasma creatinine m easurement (mass/volume)Ordered By: Elisa Narvaez on 06-13-2023 Creatinine [Mass/Vol] 1.32 mg/dL 0.70-1.30 [facility] Serum or plasma urea nitroge n measurement (mass/volume)Ordered By: Elisa Narvaez on 06-13-2023 Urea nitrogen [Mass/Vol] 16 mg/dL 7-18 [facility] Thin prep Papanicolaou smear with manual screeningOrdered By: Elisa Narvaez on 06-13-2023 Thin prep Papanicolaou smear with manual screening 7 5-15 [facility] Absolute lymphocyte countOrd ered By: Elisa Narvaez on 06-06-2023 Lymphocytes Auto (Unsp spec) [#/Vol] 0.50 10*3/uL 0.83-4.51 [facility] Basophil percentageOrdered B y: Elisa Narvaez on 06-06-2023 Basophil percentage 118 mg/dL 74-106 [facility] Basophil percentage 143 mmol/L 136-145 [facility] Basophil percentage 3.2 mmol/L 3.5-5.1 [facility] Basophil percentage 114 mmol/L 98-107 [facility] Basophil percentage 34.0 umol/L 11-32 [facility] Basophils (Bld) [#/Vol] 8.5 10*3/uL 4.4-11.0 [facility] Basophils (Bld) [#/Vol] 7.0 10*3/uL 2.0-7.7 [facility] Basophils/100 WBC (Bld) 82.7 % 47-70 [facility] Basophils/100 WBC (Bld) 2.4 % 0-5 [facility] Basophils/100 WBC (Bld) 0.4 % 0-1 [facility] Blood erythrocytes count (nu mber/volume)Ordered By: Elisa Narvaez on 06-06-2023 RBC (Bld) [#/Vol] 4.03 10*6/uL 4.6-6.2 [facility] Blood hemoglobin measurement (mass/volume)Ordered By: Elisa Narvaez on 06-06-2023 Hemoglobin (Bld) [Mass/Vol] 13.1 g/dL 13.0-16.5 [facility] Blood lymphocytes/100 leukoc ytesOrdered By: Elisa Narvaez on 06-06-2023 Lymphocytes/100 WBC (Bld) 5.9 % 19-41 [facility] Blood manual differential co mment interpretation (narrative result)Ordered By: Elisa Narvaez on 06-06-2023 Manual differential comment Timur (Bld) [Interp] SCANNED [facility] Blood monocytes/100 leukocyt esOrdered By: Elisa Narvaez on 06-06-2023 Monocytes/100 WBC (Bld) 7.9 % 0-10 [facility] Blood platelet mean volumeOr dered By: Elisa Narvaez on 06-06-2023 Platelet mean volume (Bld) [Entitic vol] 11.7 fL 6.2-12.0 [facility] Determination of erythrocyte mean corpuscular volume (MCV)Ordered By: Elisa Narvaez on 06-06-2023 MCV (RBC) [Entitic vol] 99.3 fL 80-94 [facility] Hematocrit Auto (Bld) [Volum e fraction]Ordered By: Elisa Narvaez on 06-06-2023 Hematocrit (Bld) [Volume fraction] 40.0 % 40-54 [facility] MCHC Auto (RBC) [Mass/Vol]Or dered By: Elisa Narvaez on 06-06-2023 MCHC (RBC) [Mass/Vol] 32.8 g/dL 32-36 [facility] No Panel InformationOrdered By: Elisa Narvaez on 06-06-2023 32.5 pg 27.0-32.0 [facility] 13.8 % 11.6-14.6 [facility] 50.6 fl 35.1-43.9 [facility] 0.700 % 0.0-0.9 [facility] 0 % 0-5 [facility] 48 mL/min >60 [facility] 58 mL/min >60 [facility] 23.0 RATIO 10-20 [facility] 2.4 mg/dL 1.6-2.6 [facility] 23.0 mmol/L 21.0-32.0 [facility] Platelets bldOrdered By: Dante Narvaez on 06-06-2023 Platelets (Bld) [#/Vol] 152 10*3/uL 150-450 [facility] Serum or plasma calcium carol urement (mass/volume)Ordered By: Elisa Narvaez on 06-06-2023 Calcium [Mass/Vol] 8.9 mg/dL 8.5-10.1 [facility] Serum or plasma creatinine m easurement (mass/volume)Ordered By: Elisa Narvaez on 06-06-2023 Creatinine [Mass/Vol] 1.52 mg/dL 0.70-1.30 [facility] Serum or plasma urea nitroge n measurement (mass/volume)Ordered By: Elisa Narvaez on 06-06-2023 Urea nitrogen [Mass/Vol] 35 mg/dL 7-18 [facility] Thin prep Papanicolaou smear with manual screeningOrdered By: Elisa Narvaez on 06-06-2023 Thin prep Papanicolaou smear with manual screening 6 5-15 [facility] Absolute lymphocyte countOrd ered By: Elisa Narvaez on 05-25-2023 Lymphocytes Auto (Unsp spec) [#/Vol] 0.35 10*3/uL 0.83-4.51 [facility] Basophil percentageOrdered B y: Elisa Narvaez on 05-25-2023 Basophil percentage 169 mg/dL 74-106 [facility] Basophil percentage 140 mmol/L 136-145 [facility] Basophil percentage 3.8 mmol/L 3.5-5.1 [facility] Basophil percentage 109 mmol/L 98-107 [facility] Basophils (Bld) [#/Vol] 4.0 10*3/uL 4.4-11.0 [facility] Basophils (Bld) [#/Vol] 3.2 10*3/uL 2.0-7.7 [facility] Basophils/100 WBC (Bld) 77.9 % 47-70 [facility] Basophils/100 WBC (Bld) 5.2 % 0-5 [facility] Basophils/100 WBC (Bld) 0.5 % 0-1 [facility] Blood erythrocytes count (nu mber/volume)Ordered By: Elisa Narvaez on 05-25-2023 RBC (Bld) [#/Vol] 3.69 10*6/uL 4.6-6.2 [facility] Blood hemoglobin measurement (mass/volume)Ordered By: Elisa Narvaez on 05-25-2023 Hemoglobin (Bld) [Mass/Vol] 12.0 g/dL 13.0-16.5 [facility] Blood lymphocytes/100 leukoc ytesOrdered By: Elisa Narvaez on 05-25-2023 Lymphocytes/100 WBC (Bld) 8.7 % 19-41 [facility] Blood monocytes/100 leukocyt esOrdered By: Elisa Narvaez on 05-25-2023 Monocytes/100 WBC (Bld) 6.7 % 0-10 [facility] Blood platelet mean volumeOr dered By: Elisa Narvaez on 05-25-2023 Platelet mean volume (Bld) [Entitic vol] 12.2 fL 6.2-12.0 [facility] Determination of erythrocyte mean corpuscular volume (MCV)Ordered By: Elisa Narvaez on 05-25-2023 MCV (RBC) [Entitic vol] 101.1 fL 80-94 [facility] Hematocrit Auto (Bld) [Volum e fraction]Ordered By: Elisa Narvaez on 05-25-2023 Hematocrit (Bld) [Volume fraction] 37.3 % 40-54 [facility] Hypochromatic red blood cell detectionOrdered By: Elisa Narvaez on 05-25-2023 Hypochromia Ql (Bld) 4.0 [facility] MCHC Auto (RBC) [Mass/Vol]Or dered By: Elisa Narvaez on 05-25-2023 MCHC (RBC) [Mass/Vol] 32.2 g/dL 32-36 [facility] No Panel InformationOrdered By: Elisa Narvaez on 05-25-2023 32.5 pg 27.0-32.0 [facility] 14.0 % 11.6-14.6 [facility] 51.3 fl 35.1-43.9 [facility] 1.000 % 0.0-0.9 [facility] 0 % 0-5 [facility] 50 mL/min >60 [facility] 60 mL/min >60 [facility] 17.6 RATIO 10-20 [facility] 2.1 mg/dL 1.6-2.6 [facility] 25.0 mmol/L 21.0-32.0 [facility] 1077 pg/mL 211-911 [facility] 47.9 ng/mL [facility] Platelets bldOrdered By: Dante Narvaez on 05-25-2023 Platelets (Bld) [#/Vol] 110 10*3/uL 150-450 [facility] Review by pathologistOrdered By: Elisa Narvaez on 05-25-2023 Pathologist review Timur (Unsp spec) [Interp] Reviewed [facility] Serum or plasma calcium carol urement (mass/volume)Ordered By: Elisa Narvaez on 05-25-2023 Calcium [Mass/Vol] 8.6 mg/dL 8.5-10.1 [facility] Serum or plasma creatinine m easurement (mass/volume)Ordered By: Elisa Narvaez on 05-25-2023 Creatinine [Mass/Vol] 1.48 mg/dL 0.70-1.30 [facility] Serum or plasma urea nitroge n measurement (mass/volume)Ordered By: Elisa Narvaez on 05-25-2023 Urea nitrogen [Mass/Vol] 26 mg/dL 7-18 [facility] Thin prep Papanicolaou smear with manual screeningOrdered By: Elisaely Narvaez on 05-25-2023 Thin prep Papanicolaou smear with manual screening 6 5-15 [facility] Whole blood hemoglobin A1c/t otal hemoglobin ratio (mass fraction)Ordered By: Elisa Narvaez on 05-25-2023 HbA1c (Bld) [Mass fraction] 8.3 % 3.8-5.6 [facility] Basophil percentageOrdered B y: Azael Jackson on 05-20-2023 Basophil percentage 40.0 umol/L 11-32 [facility] Absolute lymphocyte countOrd ered By: Azael Jackson on 05-18-2023 Lymphocytes Auto (Unsp spec) [#/Vol] 0.44 10*3/uL 0.83-4.51 [facility] Basophil percentageOrdered B y: Azael Jackson on 05-18-2023 Basophil percentage 196 mg/dL 74-106 [facility] Basophil percentage 6.6 g/dL 6.4-8.2 [facility] Basophil percentage 0.70 mg/dL 0.20-1.00 [facility] Basophil percentage 140 mmol/L 136-145 [facility] Basophil percentage 3.7 mmol/L 3.5-5.1 [facility] Basophil percentage 110 mmol/L 98-107 [facility] Basophil percentage 41.0 umol/L 11-32 [facility] Basophils (Bld) [#/Vol] 5.9 10*3/uL 4.4-11.0 [facility] Basophils (Bld) [#/Vol] 4.8 10*3/uL 2.0-7.7 [facility] Basophils/100 WBC (Bld) 81.4 % 47-70 [facility] Basophils/100 WBC (Bld) 3.4 % 0-5 [facility] Basophils/100 WBC (Bld) 0.5 % 0-1 [facility] Blood erythrocytes count (nu mber/volume)Ordered By: Azael Jackson on 05-18-2023 RBC (Bld) [#/Vol] 3.82 10*6/uL 4.6-6.2 [facility] Blood hemoglobin measurement (mass/volume)Ordered By: Azael Jackson on 05-18-2023 Hemoglobin (Bld) [Mass/Vol] 12.5 g/dL 13.0-16.5 [facility] Blood lymphocytes/100 leukoc ytesOrdered By: Azael Jackson on 05-18-2023 Lymphocytes/100 WBC (Bld) 7.4 % 19-41 [facility] Blood monocytes/100 leukocyt esOrdered By: Azael Jackson on 05-18-2023 Monocytes/100 WBC (Bld) 6.3 % 0-10 [facility] Blood platelet mean volumeOr dered By: Azael Jackson on 05-18-2023 Platelet mean volume (Bld) [Entitic vol] 12.0 fL 6.2-12.0 [facility] Determination of erythrocyte mean corpuscular volume (MCV)Ordered By: Azael Jackson on 05-18-2023 MCV (RBC) [Entitic vol] 100.0 fL 80-94 [facility] Hematocrit Auto (Bld) [Volum e fraction]Ordered By: Azael Jackson on 05-18-2023 Hematocrit (Bld) [Volume fraction] 38.2 % 40-54 [facility] MCHC Auto (RBC) [Mass/Vol]Or dered By: Azael Jackson on 05-18-2023 MCHC (RBC) [Mass/Vol] 32.7 g/dL 32-36 [facility] No Panel InformationOrdered By: Azael Jackson on 05-18-2023 32.7 pg 27.0-32.0 [facility] 14.3 % 11.6-14.6 [facility] 52.8 fl 35.1-43.9 [facility] 1.000 % 0.0-0.9 [facility] 0 % 0-5 [facility] 43 mL/min >60 [facility] 52 mL/min >60 [facility] 21.6 RATIO 10-20 [facility] 3.6 g/dL 2.2-4.2 [facility] 102 U/L 45-117 [facility] 20 U/L 16-61 [facility] 23.0 mmol/L 21.0-32.0 [facility] Platelets bldOrdered By: Leonardo killianrupa Jackson on 05-18-2023 Platelets (Bld) [#/Vol] 83 10*3/uL 150-450 [facility] Serum or plasma albumin carol urement (mass/volume)Ordered By: Azael Jackson on 05-18-2023 Albumin [Mass/Vol] 3.0 g/dL 3.2-5.0 [facility] Serum or plasma albumin/glob ulin mass ratioOrdered By: Azael Jackson on 05-18-2023 Albumin/Globulin [Mass ratio] 0.8 {ratio} 0.9-2.4 [facility] Serum or plasma calcium carol urement (mass/volume)Ordered By: Azael Jackson on 05-18-2023 Calcium [Mass/Vol] 8.7 mg/dL 8.5-10.1 [facility] Serum or plasma creatinine m easurement (mass/volume)Ordered By: Azael Jackson on 05-18-2023 Creatinine [Mass/Vol] 1.67 mg/dL 0.70-1.30 [facility] Serum or plasma urea nitroge n measurement (mass/volume)Ordered By: Azael Jackson on 07-12-2023 Urea nitrogen [Mass/Vol] 36 mg/dL 7-18 [facility] Thin prep Papanicolaou smear with manual screeningOrdered By: Azael Jackson on 05-18-2023 Thin prep Papanicolaou smear with manual screening 12 U/L 15-37 [facility] Thin prep Papanicolaou smear with manual screening 7 5-15 [facility] Absolute lymphocyte countOrd ered By: Azael Jackson on 05-11-2023 Lymphocytes Auto (Unsp spec) [#/Vol] 0.49 10*3/uL 0.83-4.51 [facility] Basophil percentageOrdered B y: Azael Jackson on 05-11-2023 Basophil percentage 270 mg/dL 74-106 [facility] Basophil percentage 6.9 g/dL 6.4-8.2 [facility] Basophil percentage 0.60 mg/dL 0.20-1.00 [facility] Basophil percentage 137 mmol/L 136-145 [facility] Basophil percentage 4.0 mmol/L 3.5-5.1 [facility] Basophil percentage 107 mmol/L 98-107 [facility] Basophil percentage 14.0 umol/L 11-32 [facility] Basophils (Bld) [#/Vol] 8.7 10*3/uL 4.4-11.0 [facility] Basophils (Bld) [#/Vol] 7.5 10*3/uL 2.0-7.7 [facility] Basophils/100 WBC (Bld) 86.3 % 47-70 [facility] Basophils/100 WBC (Bld) 1.6 % 0-5 [facility] Basophils/100 WBC (Bld) 0.3 % 0-1 [facility] Blood erythrocytes count (nu mber/volume)Ordered By: Azael Jackson on 05-11-2023 RBC (Bld) [#/Vol] 4.05 10*6/uL 4.6-6.2 [facility] Blood hemoglobin measurement (mass/volume)Ordered By: Azael Jackson on 05-11-2023 Hemoglobin (Bld) [Mass/Vol] 13.3 g/dL 13.0-16.5 [facility] Blood lymphocytes/100 leukoc ytesOrdered By: Azael Jackson on 05-11-2023 Lymphocytes/100 WBC (Bld) 5.6 % 19-41 [facility] Blood manual differential co mment interpretation (narrative result)Ordered By: Azael Jackson on 05-11-2023 Manual differential comment Timur (Bld) [Interp] SCANNED [facility] Blood monocytes/100 leukocyt esOrdered By: Azael Jackson on 05-11-2023 Monocytes/100 WBC (Bld) 4.9 % 0-10 [facility] Blood platelet mean volumeOr dered By: Azael Jackson on 05-11-2023 Platelet mean volume (Bld) [Entitic vol] 12.1 fL 6.2-12.0 [facility] Determination of erythrocyte mean corpuscular volume (MCV)Ordered By: Azael Jackson on 05-11-2023 MCV (RBC) [Entitic vol] 99.3 fL 80-94 [facility] Hematocrit Auto (Bld) [Volum e fraction]Ordered By: Rubenhollisterrupa Jackson on 05-11-2023 Hematocrit (Bld) [Volume fraction] 40.2 % 40-54 [facility] MCHC Auto (RBC) [Mass/Vol]Or dered By: Azael Jackson on 05-11-2023 MCHC (RBC) [Mass/Vol] 33.1 g/dL 32-36 [facility] No Panel InformationOrdered By: Azael Jackson on 05-11-2023 32.8 pg 27.0-32.0 [facility] 14.7 % 11.6-14.6 [facility] 53.5 fl 35.1-43.9 [facility] 1.300 % 0.0-0.9 [facility] 0 % 0-5 [facility] 42 mL/min >60 [facility] 51 mL/min >60 [facility] 22.9 RATIO 10-20 [facility] 3.8 g/dL 2.2-4.2 [facility] 99 U/L 45-117 [facility] 23 U/L 16-61 [facility] 23.0 mmol/L 21.0-32.0 [facility] Platelets bldOrdered By: Leonardorenny key Girishdollyrenny on 05-11-2023 Platelets (Bld) [#/Vol] 103 10*3/uL 150-450 [facility] Serum or plasma albumin carol urement (mass/volume)Ordered By: Azael Jackson on 05-11-2023 Albumin [Mass/Vol] 3.1 g/dL 3.2-5.0 [facility] Serum or plasma albumin/glob ulin mass ratioOrdered By: Azael Jackson on 05-11-2023 Albumin/Globulin [Mass ratio] 0.8 {ratio} 0.9-2.4 [facility] Serum or plasma calcium carol urement (mass/volume)Ordered By: Azael Jackson on 05-11-2023 Calcium [Mass/Vol] 8.9 mg/dL 8.5-10.1 [facility] Serum or plasma creatinine m easurement (mass/volume)Ordered By: Azael Jackson on 05-11-2023 Creatinine [Mass/Vol] 1.70 mg/dL 0.70-1.30 [facility] Serum or plasma urea nitroge n measurement (mass/volume)Ordered By: Azael Jackson on 05-11-2023 Urea nitrogen [Mass/Vol] 39 mg/dL 7-18 [facility] Thin prep Papanicolaou smear with manual screeningOrdered By: Azael Jackson on 05-11-2023 Thin prep Papanicolaou smear with manual screening 13 U/L 15-37 [facility] Thin prep Papanicolaou smear with manual screening 7 5-15 [facility] Absolute lymphocyte countOrd ered By: Azael Jackson on 05-03-2023 Lymphocytes Auto (Unsp spec) [#/Vol] 0.65 10*3/uL 0.83-4.51 [facility] Basophil percentageOrdered B y: Azael Jackson on 05-03-2023 Basophil percentage 197 mg/dL 74-106 [facility] Basophil percentage 7.3 g/dL 6.4-8.2 [facility] Basophil percentage 0.60 mg/dL 0.20-1.00 [facility] Basophil percentage 139 mmol/L 136-145 [facility] Basophil percentage 3.6 mmol/L 3.5-5.1 [facility] Basophil percentage 110 mmol/L 98-107 [facility] Basophil percentage < 10.0 umol/L 11-32 [facility] Basophils (Bld) [#/Vol] 9.0 10*3/uL 4.4-11.0 [facility] Basophils (Bld) [#/Vol] 7.4 10*3/uL 2.0-7.7 [facility] Basophils/100 WBC (Bld) 82.8 % 47-70 [facility] Basophils/100 WBC (Bld) 0.8 % 0-5 [facility] Basophils/100 WBC (Bld) 0.4 % 0-1 [facility] Blood erythrocytes count (nu mber/volume)Ordered By: Azael Jackson on 05-03-2023 RBC (Bld) [#/Vol] 4.29 10*6/uL 4.6-6.2 [facility] Blood hemoglobin measurement (mass/volume)Ordered By: Azael Jackson on 05-03-2023 Hemoglobin (Bld) [Mass/Vol] 13.8 g/dL 13.0-16.5 [facility] Blood lymphocytes/100 leukoc ytesOrdered By: Azael Jackson on 05-03-2023 Lymphocytes/100 WBC (Bld) 7.2 % 19-41 [facility] Blood monocytes/100 leukocyt esOrdered By: Azael Jackson on 05-03-2023 Monocytes/100 WBC (Bld) 6.8 % 0-10 [facility] Blood platelet mean volumeOr dered By: Azael Jackson on 05-03-2023 Platelet mean volume (Bld) [Entitic vol] 12.2 fL 6.2-12.0 [facility] Determination of erythrocyte mean corpuscular volume (MCV)Ordered By: Azael Jackson on 05-03-2023 MCV (RBC) [Entitic vol] 98.8 fL 80-94 [facility] Hematocrit Auto (Bld) [Volum e fraction]Ordered By: Azael Jackson on 05-03-2023 Hematocrit (Bld) [Volume fraction] 42.4 % 40-54 [facility] MCHC Auto (RBC) [Mass/Vol]Or dered By: Azael Jackson on 05-03-2023 MCHC (RBC) [Mass/Vol] 32.5 g/dL 32-36 [facility] No Panel InformationOrdered By: Azael Jackson on 05-03-2023 < 0.01 ng/mL 0.0-4.0 [facility] 32.2 pg 27.0-32.0 [facility] 13.8 % 11.6-14.6 [facility] 49.8 fl 35.1-43.9 [facility] 2.000 % 0.0-0.9 [facility] 0 % 0-5 [facility] 46 mL/min >60 [facility] 56 mL/min >60 [facility] 20.3 RATIO 10-20 [facility] 4.0 g/dL 2.2-4.2 [facility] 109 U/L 45-117 [facility] 28 U/L 16-61 [facility] 23.0 mmol/L 21.0-32.0 [facility] Platelets bldOrdered By: Leonardo Jackson on 05-03-2023 Platelets (Bld) [#/Vol] 144 10*3/uL 150-450 [facility] Serum or plasma albumin carol urement (mass/volume)Ordered By: Azael Jackson on 05-03-2023 Albumin [Mass/Vol] 3.3 g/dL 3.2-5.0 [facility] Serum or plasma albumin/glob ulin mass ratioOrdered By: Azael Jackson on 05-03-2023 Albumin/Globulin [Mass ratio] 0.8 {ratio} 0.9-2.4 [facility] Serum or plasma calcium carol urement (mass/volume)Ordered By: Azael Jackson on 05-03-2023 Calcium [Mass/Vol] 9.5 mg/dL 8.5-10.1 [facility] Serum or plasma creatinine m easurement (mass/volume)Ordered By: Azael Jackson on 05-03-2023 Creatinine [Mass/Vol] 1.58 mg/dL 0.70-1.30 [facility] Serum or plasma urea nitroge n measurement (mass/volume)Ordered By: Azael Jackson on 05-03-2023 Urea nitrogen [Mass/Vol] 32 mg/dL 7-18 [facility] Thin prep Papanicolaou smear with manual screeningOrdered By: Azael Jackson on 05-03-2023 Thin prep Papanicolaou smear with manual screening 14 U/L 15-37 [facility] Thin prep Papanicolaou smear with manual screening 6 5-15 [facility] Absolute lymphocyte countOrd ered By: Martha Ashby on 04-26-2023 Lymphocytes Auto (Unsp spec) [#/Vol] 0.62 10*3/uL 0.83-4.51 [facility] Basophil percentageOrdered B y: Martha Ashby on 04-26-2023 Basophil percentage 95 mg/dL 74-106 [facility] Basophil percentage 6.7 g/dL 6.4-8.2 [facility] Basophil percentage 0.70 mg/dL 0.20-1.00 [facility] Basophil percentage 143 mmol/L 136-145 [facility] Basophil percentage 3.6 mmol/L 3.5-5.1 [facility] Basophil percentage 109 mmol/L 98-107 [facility] Basophil percentage 38.0 umol/L 11-32 [facility] Basophils (Bld) [#/Vol] 6.5 10*3/uL 4.4-11.0 [facility] Basophils (Bld) [#/Vol] 5.1 10*3/uL 2.0-7.7 [facility] Basophils/100 WBC (Bld) 78.6 % 47-70 [facility] Basophils/100 WBC (Bld) 4.9 % 0-5 [facility] Basophils/100 WBC (Bld) 0.5 % 0-1 [facility] Blood erythrocytes count (nu mber/volume)Ordered By: Martha Ashby on 04-26-2023 RBC (Bld) [#/Vol] 3.61 10*6/uL 4.6-6.2 [facility] Blood hemoglobin measurement (mass/volume)Ordered By: Martha Ashby on 04-26-2023 Hemoglobin (Bld) [Mass/Vol] 11.6 g/dL 13.0-16.5 [facility] Blood lymphocytes/100 leukoc ytesOrdered By: Martha Ashby on 04-26-2023 Lymphocytes/100 WBC (Bld) 9.6 % 19-41 [facility] Blood monocytes/100 leukocyt esOrdered By: Martha Ashby on 04-26-2023 Monocytes/100 WBC (Bld) 5.9 % 0-10 [facility] Blood platelet mean volumeOr dered By: Martha Ashby on 04-26-2023 Platelet mean volume (Bld) [Entitic vol] 11.5 fL 6.2-12.0 [facility] Determination of erythrocyte mean corpuscular volume (MCV)Ordered By: Martha Ashby on 04-26-2023 MCV (RBC) [Entitic vol] 96.1 fL 80-94 [facility] Hematocrit Auto (Bld) [Volum e fraction]Ordered By: Martha Ashby on 04-26-2023 Hematocrit (Bld) [Volume fraction] 34.7 % 40-54 [facility] MCHC Auto (RBC) [Mass/Vol]Or dered By: Martha Ashby on 04-26-2023 MCHC (RBC) [Mass/Vol] 33.4 g/dL 32-36 [facility] No Panel InformationOrdered By: Martha Ashby on 04-26-2023 32.1 pg 27.0-32.0 [facility] 13.2 % 11.6-14.6 [facility] 47.0 fl 35.1-43.9 [facility] 0.500 % 0.0-0.9 [facility] 0 % 0-5 [facility] 65 mL/min >60 [facility] 78 mL/min >60 [facility] 20.3 RATIO 10-20 [facility] 3.7 g/dL 2.2-4.2 [facility] 99 U/L 45-117 [facility] 19 U/L 16-61 [facility] 31.0 mmol/L 21.0-32.0 [facility] Platelets bldOrdered By: Sukhjinder Ashby on 04-26-2023 Platelets (Bld) [#/Vol] 140 10*3/uL 150-450 [facility] Serum or plasma albumin carol urement (mass/volume)Ordered By: Martha Ashby on 04-26-2023 Albumin [Mass/Vol] 3.0 g/dL 3.2-5.0 [facility] Serum or plasma albumin/glob ulin mass ratioOrdered By: Martha Ashby on 04-26-2023 Albumin/Globulin [Mass ratio] 0.8 {ratio} 0.9-2.4 [facility] Serum or plasma calcium carol urement (mass/volume)Ordered By: Martha Ashby on 04-26-2023 Calcium [Mass/Vol] 9.0 mg/dL 8.5-10.1 [facility] Serum or plasma creatinine m easurement (mass/volume)Ordered By: Martha Ashby on 04-26-2023 Creatinine [Mass/Vol] 1.18 mg/dL 0.70-1.30 [facility] Serum or plasma urea nitroge n measurement (mass/volume)Ordered By: Martha Ashby on 04-26-2023 Urea nitrogen [Mass/Vol] 24 mg/dL 7-18 [facility] Thin prep Papanicolaou smear with manual screeningOrdered By: Martha Ashby on 04-26-2023 Thin prep Papanicolaou smear with manual screening 23 U/L 15-37 [facility] Thin prep Papanicolaou smear with manual screening 3 5-15 [facility] Absolute lymphocyte countOrd ered By: Dr. Turner on 04-25-2023 Lymphocytes Auto (Unsp spec) [#/Vol] 0.54 10*3/uL 0.83-4.51 [facility] Basophil percentageOrdered B y: Fior Turner on 04-25-2023 Basophil percentage 144 mg/dL 74-106 [facility] Basophil percentage 144 mmol/L 136-145 [facility] Basophil percentage 3.8 mmol/L 3.5-5.1 [facility] Basophil percentage 112 mmol/L 98-107 [facility] Basophils (Bld) [#/Vol] 6.6 10*3/uL 4.4-11.0 [facility] Basophils (Bld) [#/Vol] 5.3 10*3/uL 2.0-7.7 [facility] Basophils/100 WBC (Bld) 80.5 % 47-70 [facility] Basophils/100 WBC (Bld) 3.2 % 0-5 [facility] Basophil percentageOrdered B y: Dr. Turner on 04-25-2023 Basophils/100 WBC (Bld) 0.3 % 0-1 [facility] Chloride [Moles/Vol] 112 mmol/L 98-107 [facility] Eosinophils/100 WBC (Bld) 3.2 % 0-5 [facility] Glucose [Mass/Vol] 144 mg/dL 74-106 [facility] Comment on above: Fasting Glucose resu lt greater than or equal to 126 mg/dL suggests DIABETES MELLITUS per A.D.A. criteria. Neutrophils (Bld) [#/Vol] 5.3 10*3/uL 2.0-7.7 [facility] Neutrophils/100 WBC (Bld) 80.5 % 47-70 [facility] Potassium [Moles/Vol] 3.8 mmol/L 3.5-5.1 [facility] Sodium [Moles/Vol] 144 mmol/L 136-145 [facility] WBC (Bld) [#/Vol] 6.6 10*3/uL 4.4-11.0 [facility] Blood erythrocytes count (nu mber/volume)Ordered By: Dr. Turner on 04-25-2023 RBC (Bld) [#/Vol] 3.50 10*6/uL 4.6-6.2 [facility] Blood hemoglobin measurement (mass/volume)Ordered By: Dr. Turner on 04-25-2023 Hemoglobin (Bld) [Mass/Vol] 11.3 g/dL 13.0-16.5 [facility] Blood lymphocytes/100 leukoc ytesOrdered By: Dr. Turner on 04-25-2023 Lymphocytes/100 WBC (Bld) 8.2 % 19-41 [facility] Blood monocytes/100 leukocyt esOrdered By: Dr. Turner on 04-25-2023 Monocytes/100 WBC (Bld) 7.0 % 0-10 [facility] Blood platelet adequacy dete ction by light microscopyOrdered By: Dr. Turner on 04-25-2023 Platelets LM Ql (Bld) SLT DEC ADEQ [facility] Blood platelet mean volumeOr dered By: Dr. Turner on 04-25-2023 Platelet mean volume (Bld) [Entitic vol] 11.4 fL 6.2-12.0 [facility] COVID-19 virus antigen assay Ordered By: Maximo Addison on 04-25-2023 SARS-CoV-2 (COVID-19) Ag IA.rapid Ql (Resp) [facility] COVID-19 virus antigen assay Ordered By: Dr. Addison on 04-25-2023 SARS-CoV-2 (COVID-19) Ag IA.rapid Ql (Resp) [facility] Determination of erythrocyte mean corpuscular volume (MCV)Ordered By: Dr. Turner on 04-25-2023 MCV (RBC) [Entitic vol] 100.6 fL 80-94 [facility] Hematocrit Auto (Bld) [Volum e fraction]Ordered By: Dr. Turner on 04-25-2023 Hematocrit (Bld) [Volume fraction] 35.2 % 40-54 [facility] Laboratory - Chemistry and C hemistry - challengeOrdered By: Dr. Turner on 04-25-2023 CO2 [Moles/Vol] 28.0 mmol/L 21.0-32.0 [facility] Urea nitrogen/Creatinine [Mass ratio] 26.4 mg/mg 10-20 [facility] - Hematology and Cell countsOrdered By: Dr. Turner on 04-25-2023 Erythrocyte distribution width (RBC) [Entitic vol] 49.8 fL 35.1-43.9 [facility] Erythrocyte distribution width (RBC) [Ratio] 13.5 % 11.6-14.6 [facility] Immature granulocytes/100 WBC (Bld) 0.800 % 0.0-0.9 [facility] Comment on above: IG% - Immature Granu locytes (promyelocytes, myelocytes and metamyelocytes) > 1% indicates that a LEFT SHIFT is Present. MCH (RBC) [Entitic mass] 32.3 pg 27.0-32.0 [facility] Nucleated RBC/100 WBC (Bld) [Ratio] 0 % 0-5 [facility] MCHC Auto (RBC) [Mass/Vol]Or dered By: Dr. Turner on 04-25-2023 MCHC (RBC) [Mass/Vol] 32.1 g/dL 32-36 [facility] Macrocytes detectionOrdered By: Dr. Turner on 04-25-2023 Macrocytes Ql (Bld) 1+ [facility] No Panel InformationOrdered By: Dr. Turner on 04-25-2023 Estimated Creatinine Clearance Calc 53.28 ml/min [facility] Estimated GFR (MDRD) Amer 71 mL/min >60 [facility] Comment on above: GFR Calc Estimated GFR (MDRD) Non-Af Amer 58 mL/min >60 [facility] Comment on above: Non- GFR Calc No Panel InformationOrdered By: Fior Turner on 04-25-2023 32.3 pg 27.0-32.0 [facility] 13.5 % 11.6-14.6 [facility] 49.8 fl 35.1-43.9 [facility] 0.800 % 0.0-0.9 [facility] 0 % 0-5 [facility] 58 mL/min >60 [facility] 71 mL/min >60 [facility] 53.28 ml/min [facility] 26.4 RATIO 10-20 [facility] 28.0 mmol/L 21.0-32.0 [facility] Platelets bldOrdered By: Dr. Turner on 04-25-2023 Platelets (Bld) [#/Vol] 120 10*3/uL 150-450 [facility] Serum or plasma calcium carol urement (mass/volume)Ordered By: Dr. Turner on 04-25-2023 Calcium [Mass/Vol] 8.9 mg/dL 8.5-10.1 [facility] Serum or plasma creatinine m easurement (mass/volume)Ordered By: Dr. Turner on 04-25-2023 Creatinine [Mass/Vol] 1.29 mg/dL 0.70-1.30 [facility] Comment on above: The validity of the calculated GFR & GFRAA in patients over 70 years has not been determined. Clinical correlation is essential. Serum or plasma urea nitroge n measurement (mass/volume)Ordered By: Dr. Turner on 04-25-2023 Urea nitrogen [Mass/Vol] 34 mg/dL 7-18 [facility] Thin prep Papanicolaou smear with manual screeningOrdered By: Dr. Turner on 04-25-2023 Thin prep Papanicolaou smear with manual screening 4 5-15 [facility] Blood manual differential co mment interpretation (narrative result)Ordered By: Dr. Turner on 04-24-2023 Manual differential comment Timur (Bld) [Interp] SCANNED [facility] Glucose Glucometer (BldC) [M ass/Vol]Ordered By: Dr. Turner on 04-24-2023 Glucose [Mass/Vol] 209 mg/dL 74-106 [facility] Comment on above: MANAGEMENT OF PATIEN T CARE PER NURSING PROTOCOL Absolute lymphocyte countOrd ered By: Dr. Olivia on 04-23-2023 Lymphocytes Auto (Unsp spec) [#/Vol] 0.63 10*3/uL 0.83-4.51 [facility] Basophil percentageOrdered B y: Dr. Olivia on 04-23-2023 Basophil percentage 0 SEEN /hpf 0-5 [facility] Ammonia (P) [Moles/Vol] 13.0 umol/L 11-32 [facility] Basophils/100 WBC (Bld) 0.3 % 0-1 [facility] Bilirubin [Mass/Vol] 0.90 mg/dL 0.20-1.00 [facility] Comment on above: For patients on eltr ombopag therapy, use of Dimension [place] TBIL is not recommended. Chloride [Moles/Vol] 104 mmol/L 98-107 [facility] Eosinophils/100 WBC (Bld) 0.7 % 0-5 [facility] Glucose [Mass/Vol] 146 mg/dL 74-106 [facility] Comment on above: Fasting Glucose resu lt greater than or equal to 126 mg/dL suggests DIABETES MELLITUS per A.D.A. criteria. Neutrophils (Bld) [#/Vol] 7.4 10*3/uL 2.0-7.7 [facility] Neutrophils/100 WBC (Bld) 84.7 % 47-70 [facility] Potassium [Moles/Vol] 4.1 mmol/L 3.5-5.1 [facility] Protein [Mass/Vol] 8.3 g/dL 6.4-8.2 [facility] Sodium [Moles/Vol] 143 mmol/L 136-145 [facility] WBC (Bld) [#/Vol] 8.8 10*3/uL 4.4-11.0 [facility] Basophil percentageOrdered B y: Goldy Olivia on 04-23-2023 Basophil percentage 8.3 g/dL 6.4-8.2 [facility] Basophil percentage 0.90 mg/dL 0.20-1.00 [facility] Basophil percentage 13.0 umol/L 11-32 [facility] Bilirubin Test strip Ql (U)O rdered By: Dr. Olivia on 04-23-2023 Bilirubin Ql (U) Negative Negative [facility] Blood erythrocytes count (nu mber/volume)Ordered By: Dr. Olivia on 04-23-2023 RBC (Bld) [#/Vol] 4.25 10*6/uL 4.6-6.2 [facility] Blood hemoglobin measurement (mass/volume)Ordered By: Dr. Olivia on 04-23-2023 Hemoglobin (Bld) [Mass/Vol] 13.9 g/dL 13.0-16.5 [facility] Blood lymphocytes/100 leukoc ytesOrdered By: Dr. Olivia on 04-23-2023 Lymphocytes/100 WBC (Bld) 7.2 % 19-41 [facility] Blood monocytes/100 leukocyt esOrdered By: Dr. Olivia on 04-23-2023 Monocytes/100 WBC (Bld) 6.6 % 0-10 [facility] Blood platelet mean volumeOr dered By: Dr. Olivia on 04-23-2023 Platelet mean volume (Bld) [Entitic vol] 11.3 fL 6.2-12.0 [facility] Determination of erythrocyte mean corpuscular volume (MCV)Ordered By: Dr. Olivia on 04-23-2023 MCV (RBC) [Entitic vol] 97.4 fL 80-94 [facility] Hematocrit Auto (Bld) [Volum e fraction]Ordered By: Dr. Olivia on 04-23-2023 Hematocrit (Bld) [Volume fraction] 41.4 % 40-54 [facility] INR in Blood by Coagulation assayOrdered By: Dr. Olivia on 04-23-2023 INR Coag (Bld) [Relative time] 1.7 {INR} [facility] Influenza virus A and B and SARS-CoV-2 (COVID-19) Ag panel - Upper respiratory specimOrdered By: Dr. Olivia on 04-23-2023 SARS-CoV-2 (COVID-19) RNA ANUJ+probe Ql (Resp) [facility] Ketones Test strip Ql (U)Ord ered By: Dr. Olivia on 04-23-2023 Ketones Ql (U) Negative Negative [facility] Laboratory - Chemistry and C hemistry - challengeOrdered By: Dr. Olivia on 04-23-2023 ALP [Catalytic activity/Vol] 130 U/L 45-117 [facility] ALT [Catalytic activity/Vol] 22 U/L 16-61 [facility] CO2 [Moles/Vol] 31.0 mmol/L 21.0-32.0 [facility] Globulin (S) [Mass/Vol] 4.6 g/dL 2.2-4.2 [facility] Lipase [Catalytic activity/Vol] 11 U/L 13-75 [facility] Comment on above: Please note:LIPASE r evised reference range effective 23. New Lipase methodology. Expected to produce lower values than the previous assay method. NEW Reference Range: 13 - 75 U/L Urea nitrogen/Creatinine [Mass ratio] 27.9 mg/mg 10-20 [facility] - CoagulationOrde red By: Dr. Olivia on 04-23-2023 aPTT Coag (Bld) [Time] 34.0 s 24.1-36.2 [facility] PT Coag (PPP) [Time] 20.3 s 11.7-14.9 [facility] Laboratory - Hematology and Cell countsOrdered By: Dr. Olivia on 04-23-2023 Erythrocyte distribution width (RBC) [Entitic vol] 49.1 fL 35.1-43.9 [facility] Erythrocyte distribution width (RBC) [Ratio] 13.7 % 11.6-14.6 [facility] Immature granulocytes/100 WBC (Bld) 0.500 % 0.0-0.9 [facility] Comment on above: IG% - Immature Granu locytes (promyelocytes, myelocytes and metamyelocytes) > 1% indicates that a LEFT SHIFT is Present. MCH (RBC) [Entitic mass] 32.7 pg 27.0-32.0 [facility] Nucleated RBC/100 WBC (Bld) [Ratio] 0 % 0-5 [facility] MCHC Auto (RBC) [Mass/Vol]Or dered By: Dr. Olivia on 04-23-2023 MCHC (RBC) [Mass/Vol] 33.6 g/dL 32-36 [facility] Mucus LM Ql (Urine sed)Order ed By: Dr. Olivia on 04-23-2023 Mucus Ql (Urine sed) 0 SEEN /hpf [facility] Nitrite Test strip Ql (U)Ord ered By: Dr. Olivia on 04-23-2023 Nitrite Ql (U) Negative Negative [facility] No Panel InformationOrdered By: Dr. Olivia on 04-23-2023 Troponin I High Sensitivity 124 pg/mL 3.0-78.0 [facility] Comment on above: Critical Result(s) C alled at: 13:42:05 04/23/2023 by: Song Trinh RN (ER). Results read back by same. Please Note: New Test Units and Gender Specific Reference Ranges. For more information see Policy Stat Procedure [place] High Sensitivity Troponin (TNIH) and attachments. Estimated Creatinine Clearance Calc 33.69 ml/min [facility] Estimated GFR (MDRD) Amer 42 mL/min >60 [facility] Comment on above: GFR Calc Estimated GFR (MDRD) Non-Af Amer 34 mL/min >60 [facility] Comment on above: Non- GFR Calc No Panel InformationOrdered By: Goldy Olivia on 04-23-2023 124 pg/mL 3.0-78.0 [facility] 20.3 SECONDS 11.7-14.9 [facility] 34.0 Seconds 24.1-36.2 [facility] 4.6 g/dL 2.2-4.2 [facility] 11 U/L 13-75 [facility] 130 U/L 45-117 [facility] 22 U/L 16-61 [facility] Platelets bldOrdered By: Dr. Olivia on 04-23-2023 Platelets (Bld) [#/Vol] 183 10*3/uL 150-450 [facility] Protein Test strip Ql (U)Ord ered By: Dr. Olivia on 04-23-2023 Protein Ql (U) 15 mg/dl Negative [facility] Serum or plasma albumin carol urement (mass/volume)Ordered By: Dr. Olivia on 04-23-2023 Albumin [Mass/Vol] 3.7 g/dL 3.2-5.0 [facility] Serum or plasma albumin/glob ulin mass ratioOrdered By: Dr. Olivia on 04-23-2023 Albumin/Globulin [Mass ratio] 0.8 {ratio} 0.9-2.4 [facility] Serum or plasma calcium carol urement (mass/volume)Ordered By: Dr. Olivia on 04-23-2023 Calcium [Mass/Vol] 9.9 mg/dL 8.5-10.1 [facility] Serum or plasma creatinine m easurement (mass/volume)Ordered By: Dr. Olivia on 04-23-2023 Creatinine [Mass/Vol] 2.04 mg/dL 0.70-1.30 [facility] Comment on above: The validity of the calculated GFR & GFRAA in patients over 70 years has not been determined. Clinical correlation is essential. Serum or plasma urea nitroge n measurement (mass/volume)Ordered By: Dr. Olivia on 04-23-2023 Urea nitrogen [Mass/Vol] 57 mg/dL 7-18 [facility] Squamous epithelial cells de tection in urine sediment by light microscopyOrdered By: Dr. Olivia on 04-23-2023 Epithelial cells.squamous LM Ql (Urine sed) 0-5 SEEN /hpf 0-5 [facility] Thin prep Papanicolaou smear with manual screeningOrdered By: Dr. Olivia on 04-23-2023 Thin prep Papanicolaou smear with manual screening 23 U/L 15-37 [facility] Thin prep Papanicolaou smear with manual screening 8 5-15 [facility] Urine blood detectionOrdered By: Dr. Olivia on 04-23-2023 RBC Ql (U) Negative Negative [facility] RBC Ql (U) 0 SEEN /hpf 0-5 [facility] Urine clarityOrdered By: Dr. Olivia on 04-23-2023 Clarity (U) Clear Clear [facility] Urine color determinationOrd ered By: Dr. Olivia on 04-23-2023 Color (U) Yellow Yellow [facility] Urine glucose detectionOrder ed By: Dr. Olivia on 04-23-2023 Glucose Ql (U) Normal mg/dl Normal [facility] Urine leukocyte esterase det ection by dipstickOrdered By: Dr. Olivia on 04-23-2023 Leukocyte esterase Test strip Ql (U) Negative Negative [facility] Urine pHOrdered By: Dr. Sunny means on 04-23-2023 pH (U) 5.0 [pH] 5.0 - 8.0 [facility] Urine sediment bacteria coun t by microscopy (number/high power field)Ordered By: Dr. Olivia on 04-23-2023 Bacteria LM.HPF (Urine sed) [#/Area] 0 /[HPF] None Seen [facility] Urine specific gravity measu rementOrdered By: Dr. Olivia on 04-23-2023 Specific gravity (U) [Rel density] 1.020 1.002-1.03 0 [facility] Urobilinogen Auto test strip Ql (U)Ordered By: Dr. Olivia on 04-23-2023 Urobilinogen Ql (U) Normal mg/dl Normal [facility] Absolute lymphocyte countOrd ered By: Martha Ashby on 04-19-2023 Lymphocytes Auto (Unsp spec) [#/Vol] 0.49 10*3/uL 0.83-4.51 [facility] Basophil percentageOrdered B y: Martha Ashby on 04-19-2023 Ammonia (P) [Moles/Vol] 27.0 umol/L 11-32 [facility] Basophil percentage 136 mg/dL 74-106 [facility] Basophil percentage 7.3 g/dL 6.4-8.2 [facility] Basophil percentage 0.70 mg/dL 0.20-1.00 [facility] Basophil percentage 153 mg/dL <200 [facility] Basophil percentage 84 mg/dL <199 [facility] Basophil percentage 140 mmol/L 136-145 [facility] Basophil percentage 3.9 mmol/L 3.5-5.1 [facility] Basophil percentage 104 mmol/L 98-107 [facility] Basophil percentage 27.0 umol/L 11-32 [facility] Basophils (Bld) [#/Vol] 6.6 10*3/uL 4.4-11.0 [facility] Basophils (Bld) [#/Vol] 5.4 10*3/uL 2.0-7.7 [facility] Basophils/100 WBC (Bld) 0.5 % 0-1 [facility] Basophils/100 WBC (Bld) 80.8 % 47-70 [facility] Basophils/100 WBC (Bld) 4.2 % 0-5 [facility] Bilirubin [Mass/Vol] 0.70 mg/dL 0.20-1.00 [facility] Comment on above: For patients on eltr ombopag therapy, use of Dimension [place] TBIL is not recommended. Chloride [Moles/Vol] 104 mmol/L 98-107 [facility] Cholesterol [Mass/Vol] 153 mg/dL <200 [facility] Comment on above: <200 mg/dL Desirable 200-240 mg/dL Borderline >240 mg/dL High Risk Eosinophils/100 WBC (Bld) 4.2 % 0-5 [facility] Glucose [Mass/Vol] 136 mg/dL 74-106 [facility] Comment on above: Fasting Glucose resu lt greater than or equal to 126 mg/dL suggests DIABETES MELLITUS per A.D.A. criteria. Neutrophils (Bld) [#/Vol] 5.4 10*3/uL 2.0-7.7 [facility] Neutrophils/100 WBC (Bld) 80.8 % 47-70 [facility] Potassium [Moles/Vol] 3.9 mmol/L 3.5-5.1 [facility] Protein [Mass/Vol] 7.3 g/dL 6.4-8.2 [facility] Sodium [Moles/Vol] 140 mmol/L 136-145 [facility] Triglyceride [Mass/Vol] 84 mg/dL <199 [facility] Comment on above: The drugs N-Acetylcy steine and Metamizole may falsely depress this assay.Serum Triglycerides Reference Interval Normal <150 mg/dL Borderline high 150 - 199 mg/dL High 200 - 499 mg/dL Very High > or = 500 mg/dL WBC (Bld) [#/Vol] 6.6 10*3/uL 4.4-11.0 [facility] Blood erythrocytes count (nu mber/volume)Ordered By: Martha Ashby on 04-19-2023 RBC (Bld) [#/Vol] 3.93 10*6/uL 4.6-6.2 [facility] Blood hemoglobin measurement (mass/volume)Ordered By: Martha Ashby on 04-19-2023 Hemoglobin (Bld) [Mass/Vol] 12.9 g/dL 13.0-16.5 [facility] Blood lymphocytes/100 leukoc ytesOrdered By: Martha Ashby on 04-19-2023 Lymphocytes/100 WBC (Bld) 7.4 % 19-41 [facility] Blood manual differential co mment interpretation (narrative result)Ordered By: Martha Ashby on 04-19-2023 Manual differential comment Timur (Bld) [Interp] SCANNED [facility] Blood monocytes/100 leukocyt esOrdered By: Martha Ashby on 04-19-2023 Monocytes/100 WBC (Bld) 6.2 % 0-10 [facility] Blood platelet mean volumeOr dered By: Martha Ashby on 04-19-2023 Platelet mean volume (Bld) [Entitic vol] 11.4 fL 6.2-12.0 [facility] Determination of erythrocyte mean corpuscular volume (MCV)Ordered By: Martha Ashby on 04-19-2023 MCV (RBC) [Entitic vol] 95.7 fL 80-94 [facility] Hematocrit Auto (Bld) [Volum e fraction]Ordered By: Martha Ashby on 04-19-2023 Hematocrit (Bld) [Volume fraction] 37.6 % 40-54 [facility] - Chemistry and C hemistry - challengeOrdered By: Martha Ashby on 04-19-2023 ALP [Catalytic activity/Vol] 120 U/L 45-117 [facility] ALT [Catalytic activity/Vol] 16 U/L 16-61 [facility] CO2 [Moles/Vol] 31.0 mmol/L 21.0-32.0 [facility] Cobalamin (Vitamin B12) [Mass/Vol] 1764 pg/mL 211-911 [facility] Globulin (S) [Mass/Vol] 4.0 g/dL 2.2-4.2 [facility] Urea nitrogen/Creatinine [Mass ratio] 21.3 mg/mg 10-20 [facility] - Hematology and Cell countsOrdered By: Martha Ashby on 04-19-2023 Erythrocyte distribution width (RBC) [Entitic vol] 47.4 fL 35.1-43.9 [facility] Erythrocyte distribution width (RBC) [Ratio] 13.5 % 11.6-14.6 [facility] Immature granulocytes/100 WBC (Bld) 0.900 % 0.0-0.9 [facility] Comment on above: IG% - Immature Granu locytes (promyelocytes, myelocytes and metamyelocytes) > 1% indicates that a LEFT SHIFT is Present. MCH (RBC) [Entitic mass] 32.8 pg 27.0-32.0 [facility] Nucleated RBC/100 WBC (Bld) [Ratio] 0 % 0-5 [facility] MCHC Auto (RBC) [Mass/Vol]Or dered By: Martha Ashby on 04-19-2023 MCHC (RBC) [Mass/Vol] 34.3 g/dL 32-36 [facility] No Panel InformationOrdered By: Martha Ashby on 04-19-2023 Estimated GFR (MDRD) Amer 64 mL/min >60 [facility] Comment on above: GFR Calc Estimated GFR (MDRD) Non-Af Amer 53 mL/min >60 [facility] Comment on above: Non- GFR Calc 32.8 pg 27.0-32.0 [facility] 13.5 % 11.6-14.6 [facility] 47.4 fl 35.1-43.9 [facility] 0.900 % 0.0-0.9 [facility] 0 % 0-5 [facility] 53 mL/min >60 [facility] 64 mL/min >60 [facility] 21.3 RATIO 10-20 [facility] 4.0 g/dL 2.2-4.2 [facility] 120 U/L 45-117 [facility] 16 U/L 16-61 [facility] 31.0 mmol/L 21.0-32.0 [facility] 1764 pg/mL 211-911 [facility] Platelets bldOrdered By: Sukhjinder Ashby on 04-19-2023 Platelets (Bld) [#/Vol] 129 10*3/uL 150-450 [facility] Serum or plasma albumin carol urement (mass/volume)Ordered By: Martha Ashby on 04-19-2023 Albumin [Mass/Vol] 3.3 g/dL 3.2-5.0 [facility] Serum or plasma albumin/glob ulin mass ratioOrdered By: Martha Ashby on 04-19-2023 Albumin/Globulin [Mass ratio] 0.8 {ratio} 0.9-2.4 [facility] Serum or plasma calcium carol urement (mass/volume)Ordered By: Martha Ashby on 04-19-2023 Calcium [Mass/Vol] 9.3 mg/dL 8.5-10.1 [facility] Serum or plasma cholesterol in HDL measurement (mass/volume)Ordered By: Martha Ashby on 04-19-2023 Cholesterol in HDL [Mass/Vol] 37 mg/dL >40 [facility] Comment on above: The drugs N-Acetylcy steine and Metamizole may falsely depress this assay. Reference Range HDL <40 mg/dL Low HDL Cholesterol HDL >or= 60 mg/dL High HDL Cholesterol Serum or plasma cholesterol in VLDL measurement (mass/volume)Ordered By: Martha Ashby on 04-19-2023 Cholesterol in VLDL [Mass/Vol] 17 mg/dL 5-40 [facility] Serum or plasma creatinine m easurement (mass/volume)Ordered By: Martha Ashby on 04-19-2023 Creatinine [Mass/Vol] 1.41 mg/dL 0.70-1.30 [facility] Comment on above: The validity of the calculated GFR & GFRAA in patients over 70 years has not been determined. Clinical correlation is essential. Serum or plasma low density lipoprotein (LDL) cholesterol measurement (mass/volume)Ordered By: Martha Ashby on 04-19-2023 Cholesterol in LDL [Mass/Vol] 99 mg/dL 0-130 [facility] Serum or plasma urea nitroge n measurement (mass/volume)Ordered By: Martha Ashby on 04-19-2023 Urea nitrogen [Mass/Vol] 30 mg/dL 7-18 [facility] Thin prep Papanicolaou smear with manual screeningOrdered By: Martha Ashby on 04-19-2023 Thin prep Papanicolaou smear with manual screening 14 U/L 15-37 [facility] Thin prep Papanicolaou smear with manual screening 5 5-15 [facility] Whole blood hemoglobin A1c/t otal hemoglobin ratio (mass fraction)Ordered By: Martha Ashby on 04-19-2023 HbA1c (Bld) [Mass fraction] 7.4 % 3.8-5.6 [facility] Comment on above: Normal < 5.7 % Predi abetic 5.7 - 6.4 % Diabetic >or= 6.5 % Please note range changes. Absolute lymphocyte countOrd ered By: Dr. Turner on 04-16-2023 Lymphocytes Auto (Unsp spec) [#/Vol] 0.36 10*3/uL 0.83-4.51 [facility] Basophil percentageOrdered B y: Fior Turner on 04-16-2023 Basophil percentage 462 mg/dL 74-106 [facility] Basophil percentage 139 mmol/L 136-145 [facility] Basophil percentage 4.1 mmol/L 3.5-5.1 [facility] Basophil percentage 109 mmol/L 98-107 [facility] Basophils (Bld) [#/Vol] 4.7 10*3/uL 4.4-11.0 [facility] Basophils (Bld) [#/Vol] 3.7 10*3/uL 2.0-7.7 [facility] Basophils/100 WBC (Bld) 78.9 % 47-70 [facility] Basophils/100 WBC (Bld) 4.5 % 0-5 [facility] Basophil percentageOrdered B y: Dr. Turner on 04-16-2023 Basophils/100 WBC (Bld) 0.6 % 0-1 [facility] [facility] Chlor[facility] [Moles/Vol] 109 mmol/L 98-107 [facility] Eosinophils/100 WBC (Bld) 4.5 % 0-5 [facility] Glucose [Mass/Vol] 462 mg/dL 74-106 [facility] Comment on above: Critical Result(s) C alled at: 06:52:33 04/16/2023 by: Jean Pierre Kline. Titi Gomez RN ([id number]). Results read back by same.Glucose result greater than or equal to 200 mg/dLsuggests DIABETES MELLITUS per A.D.A. criteria. Neutrophils (Bld) [#/Vol] 3.7 10*3/uL 2.0-7.7 [facility] Neutrophils/100 WBC (Bld) 78.9 % 47-70 [facility] Potassium [Moles/Vol] 4.1 mmol/L 3.5-5.1 [facility] Sodium [Moles/Vol] 139 mmol/L 136-145 [facility] WBC (Bld) [#/Vol] 4.7 10*3/uL 4.4-11.0 [facility] Blood erythrocytes count (nu mber/volume)Ordered By: Dr. Turner on 04-16-2023 RBC (Bld) [#/Vol] 3.31 10*6/uL 4.6-6.2 [facility] Blood hemoglobin measurement (mass/volume)Ordered By: Dr. Turner on 04-16-2023 Hemoglobin (Bld) [Mass/Vol] 11.0 g/dL 13.0-16.5 [facility] Blood lymphocytes/100 leukoc ytesOrdered By: Dr. Turner on 04-16-2023 Lymphocytes/100 WBC (Bld) 7.7 % 19-41 [facility] Blood manual differential co mment interpretation (narrative result)Ordered By: Dr. Turner on 04-16-2023 Manual differential comment Timur (Bld) [Interp] SCANNED [facility] Comment on above: LYMPHOPENIA Blood monocytes/100 leukocyt esOrdered By: Dr. Turner on 04-16-2023 Monocytes/100 WBC (Bld) 7.7 % 0-10 [facility] Blood platelet mean volumeOr dered By: Dr. Turner on 04-16-2023 Platelet mean volume (Bld) [Entitic vol] 11.5 fL 6.2-12.0 [facility] COVID-19 virus antigen assay Ordered By: Fior Turner on 04-16-2023 SARS-CoV-2 (COVID-19) Ag IA.rapid Ql (Resp) [facility] COVID-19 virus antigen assay Ordered By: Dr. Turner on 04-16-2023 SARS-CoV-2 (COVID-19) Ag IA.rapid Ql (Resp) [facility] Determination of erythrocyte mean corpuscular volume (MCV)Ordered By: Dr. Turner on 04-16-2023 MCV (RBC) [Entitic vol] 99.4 fL 80-94 [facility] Glucose Glucometer (BldC) [M ass/Vol]Ordered By: Dr. Turner on 04-16-2023 Glucose [Mass/Vol] 302 mg/dL 74-106 [facility] Comment on above: MANAGEMENT OF PATIEN T CARE PER NURSING PROTOCOL Hematocrit Auto (Bld) [Volum e fraction]Ordered By: Dr. Turner on 04-16-2023 Hematocrit (Bld) [Volume fraction] 32.9 % 40-54 [facility] - Chemistry and C hemistry - challengeOrdered By: Dr. Turner on 04-16-2023 CO2 [Moles/Vol] 26.0 mmol/L 21.0-32.0 [facility] Urea nitrogen/Creatinine [Mass ratio] 18.2 mg/mg 10-20 [facility] - Hematology and Cell countsOrdered By: Dr. Turner on 04-16-2023 Erythrocyte distribution width (RBC) [Entitic vol] 50.6 fL 35.1-43.9 [facility] Erythrocyte distribution width (RBC) [Ratio] 13.9 % 11.6-14.6 [facility] Immature granulocytes/100 WBC (Bld) 0.600 % 0.0-0.9 [facility] Comment on above: IG% - Immature Granu locytes (promyelocytes, myelocytes and metamyelocytes) > 1% indicates that a LEFT SHIFT is Present. MCH (RBC) [Entitic mass] 33.2 pg 27.0-32.0 [facility] Nucleated RBC/100 WBC (Bld) [Ratio] 0 % 0-5 [facility] MCHC Auto (RBC) [Mass/Vol]Or dered By: Dr. Turner on 04-16-2023 MCHC (RBC) [Mass/Vol] 33.4 g/dL 32-36 [facility] Comment on above: Delta: 31.8 on 04/15 No Panel InformationOrdered By: Dr. Turner on 04-16-2023 Estimated Creatinine Clearance Calc 48.07 ml/min [facility] Estimated GFR (MDRD) Amer 63 mL/min >60 [facility] Comment on above: GFR Calc Estimated GFR (MDRD) Non-Af Amer 52 mL/min >60 [facility] Comment on above: Non- GFR Calc No Panel InformationOrdered By: Fior Turner on 04-16-2023 33.2 pg 27.0-32.0 [facility] 13.9 % 11.6-14.6 [facility] 50.6 fl 35.1-43.9 [facility] 0.600 % 0.0-0.9 [facility] 0 % 0-5 [facility] 52 mL/min >60 [facility] 63 mL/min >60 [facility] 48.07 ml/min [facility] 18.2 RATIO 10-20 [facility] 26.0 mmol/L 21.0-32.0 [facility] Platelets bldOrdered By: Dr. Turner on 04-16-2023 Platelets (Bld) [#/Vol] 112 10*3/uL 150-450 [facility] Serum or plasma calcium carol urement (mass/volume)Ordered By: Dr. Turner on 04-16-2023 Calcium [Mass/Vol] 8.6 mg/dL 8.5-10.1 [facility] Serum or plasma creatinine m easurement (mass/volume)Ordered By: Dr. Turner on 04-16-2023 Creatinine [Mass/Vol] 1.43 mg/dL 0.70-1.30 [facility] Comment on above: The validity of the calculated GFR & GFRAA in patients over 70 years has not been determined. Clinical correlation is essential. Serum or plasma urea nitroge n measurement (mass/volume)Ordered By: Dr. Turner on 04-16-2023 Urea nitrogen [Mass/Vol] 26 mg/dL 7-18 [facility] Thin prep Papanicolaou smear with manual screeningOrdered By: Dr. Turner on 04-16-2023 Thin prep Papanicolaou smear with manual screening 4 5-15 [facility] Blood platelet adequacy dete ction by light microscopyOrdered By: Dr. Turner on 04-15-2023 Platelets LM Ql (Bld) ADEQUATE ADEQ [facility] Macrocytes detectionOrdered By: Dr. Turner on 04-15-2023 Macrocytes Ql (Bld) 1+ [facility] - Hematology and Cell countsOrdered By: Dr. Orellana on 04-14-2023 Anisocytosis Ql (Bld) 1+ [facility] No Panel InformationOrdered By: Dr. Orellana on 04-14-2023 Thyroid Stimulating Hormone (TSH) 0.87 uIU/mL 0.358-3.74 [facility] No Panel InformationOrdered By: Norris Orellana on 04-14-2023 1+ [facility] 0.87 uIU/mL 0.358-3.74 [facility] Absolute lymphocyte countOrd ered By: Dr. Bliss on 04-13-2023 Lymphocytes Auto (Unsp spec) [#/Vol] 0.51 10*3/uL 0.83-4.51 [facility] Basophil percentageOrdered B y: Dr. Bliss on 04-13-2023 Basophil percentage 0 SEEN /hpf 0-5 [facility] Basophils/100 WBC (Bld) 0.4 % 0-1 [facility] Bilirubin [Mass/Vol] 0.60 mg/dL 0.20-1.00 [facility] Comment on above: For patients on eltr ombopag therapy, use of Dimension [place] TBIL is not recommended. Chloride [Moles/Vol] 103 mmol/L 98-107 [facility] Eosinophils/100 WBC (Bld) 3.3 % 0-5 [facility] Glucose [Mass/Vol] 134 mg/dL 74-106 [facility] Comment on above: Fasting Glucose resu lt greater than or equal to 126 mg/dL suggests DIABETES MELLITUS per A.D.A. criteria. Neutrophils (Bld) [#/Vol] 5.9 10*3/uL 2.0-7.7 [facility] Neutrophils/100 WBC (Bld) 80.2 % 47-70 [facility] Potassium [Moles/Vol] 4.0 mmol/L 3.5-5.1 [facility] Protein [Mass/Vol] 7.7 g/dL 6.4-8.2 [facility] Sodium [Moles/Vol] 138 mmol/L 136-145 [facility] WBC (Bld) [#/Vol] 7.3 10*3/uL 4.4-11.0 [facility] Basophil percentageOrdered B y: Dr. Orellana on 04-13-2023 Basophil percentage 2.8 mg/dL 2.5-4.9 [facility] Basophil percentageOrdered B y: Jo-Ann Bliss on 04-13-2023 Basophil percentage 7.7 g/dL 6.4-8.2 [facility] Basophil percentage 0.60 mg/dL 0.20-1.00 [facility] Bilirubin Test strip Ql (U)O rdered By: Dr. Bliss on 04-13-2023 Bilirubin Ql (U) Negative Negative [facility] Blood erythrocytes count (nu mber/volume)Ordered By: Dr. Bliss on 04-13-2023 RBC (Bld) [#/Vol] 4.04 10*6/uL 4.6-6.2 [facility] Blood hemoglobin measurement (mass/volume)Ordered By: Dr. Bliss on 04-13-2023 Hemoglobin (Bld) [Mass/Vol] 13.0 g/dL 13.0-16.5 [facility] Blood lymphocytes/100 leukoc ytesOrdered By: Dr. Bliss on 04-13-2023 Lymphocytes/100 WBC (Bld) 7.0 % 19-41 [facility] Blood manual differential co mment interpretation (narrative result)Ordered By: Dr. Bliss on 04-13-2023 Manual differential comment Timur (Bld) [Interp] SCANNED [facility] Blood monocytes/100 leukocyt esOrdered By: Dr. Bliss on 04-13-2023 Monocytes/100 WBC (Bld) 8.1 % 0-10 [facility] Blood platelet mean volumeOr dered By: Dr. Bliss on 04-13-2023 Platelet mean volume (Bld) [Entitic vol] 11.5 fL 6.2-12.0 [facility] Determination of erythrocyte mean corpuscular volume (MCV)Ordered By: Dr. Bliss on 04-13-2023 MCV (RBC) [Entitic vol] 96.8 fL 80-94 [facility] Hematocrit Auto (Bld) [Volum e fraction]Ordered By: Dr. Bliss on 04-13-2023 Hematocrit (Bld) [Volume fraction] 39.1 % 40-54 [facility] Ketones Test strip Ql (U)Ord ered By: Dr. Bliss on 04-13-2023 Ketones Ql (U) Negative Negative [facility] - Chemistry and C hemistry - challengeOrdered By: Dr. Bliss on 04-13-2023 ALP [Catalytic activity/Vol] 117 U/L 45-117 [facility] ALT [Catalytic activity/Vol] 7 U/L 16-61 [facility] CO2 [Moles/Vol] 29.0 mmol/L 21.0-32.0 [facility] Globulin (S) [Mass/Vol] 4.0 g/dL 2.2-4.2 [facility] Lipase [Catalytic activity/Vol] 13 U/L 13-75 [facility] Comment on above: Please note:LIPASE r evised reference range effective 23. New Lipase methodology. Expected to produce lower values than the previous assay method. NEW Reference Range: 13 - 75 U/L Urea nitrogen/Creatinine [Mass ratio] 21.6 mg/mg 10-20 [facility] - Chemistry and C hemistry - challengeOrdered By: Dr. Orellana on 04-13-2023 Magnesium [Mass/Vol] 2.1 mg/dL 1.6-2.6 [facility] Laboratory - Hematology and Cell countsOrdered By: Dr. Bliss on 04-13-2023 Erythrocyte distribution width (RBC) [Entitic vol] 49.0 fL 35.1-43.9 [facility] Erythrocyte distribution width (RBC) [Ratio] 13.8 % 11.6-14.6 [facility] Immature granulocytes/100 WBC (Bld) 1.000 % 0.0-0.9 [facility] Comment on above: IG% - Immature Granu locytes (promyelocytes, myelocytes and metamyelocytes) > 1% indicates that a LEFT SHIFT is Present. MCH (RBC) [Entitic mass] 32.2 pg 27.0-32.0 [facility] Nucleated RBC/100 WBC (Bld) [Ratio] 0 % 0-5 [facility] MCHC Auto (RBC) [Mass/Vol]Or dered By: Dr. Bliss on 04-13-2023 MCHC (RBC) [Mass/Vol] 33.2 g/dL 32-36 [facility] Mucus LM Ql (Urine sed)Order ed By: Dr. Bliss on 04-13-2023 Mucus Ql (Urine sed) 0 SEEN /hpf [facility] Nitrite Test strip Ql (U)Ord ered By: Dr. Bliss on 04-13-2023 Nitrite Ql (U) Negative Negative [facility] No Panel InformationOrdered By: Dr. Bliss on 04-13-2023 Estimated Creatinine Clearance Calc 39.05 ml/min [facility] Estimated GFR (MDRD) Amer 49 mL/min >60 [facility] Comment on above: GFR Calc Estimated GFR (MDRD) Non-Af Amer 41 mL/min >60 [facility] Comment on above: Non- GFR Calc Troponin I High Sensitivity 76 pg/mL 3.0-78.0 [facility] Comment on above: Please Note: New [place] t Units and Gender Specific Reference Ranges. For more information see Policy Stat Procedure [place] High Sensitivity Troponin (TNIH) and attachments. No Panel InformationOrdered By: Jo-Ann Bliss on 04-13-2023 4.0 g/dL 2.2-4.2 [facility] 13 U/L 13-75 [facility] 76 pg/mL 3.0-78.0 [facility] 117 U/L 45-117 [facility] 7 U/L 16-61 [facility] No Panel InformationOrdered By: Norris Orellana on 04-13-2023 2.1 mg/dL 1.6-2.6 [facility] Platelets bldOrdered By: Dr. Bliss on 04-13-2023 Platelets (Bld) [#/Vol] 120 10*3/uL 150-450 [facility] Protein Test strip Ql (U)Ord ered By: Dr. Bliss on 04-13-2023 Protein Ql (U) Negative Negative [facility] Serum or plasma albumin carol urement (mass/volume)Ordered By: Dr. Bliss on 04-13-2023 Albumin [Mass/Vol] 3.7 g/dL 3.2-5.0 [facility] Serum or plasma albumin/glob ulin mass ratioOrdered By: Dr. Bliss on 04-13-2023 Albumin/Globulin [Mass ratio] 0.9 {ratio} 0.9-2.4 [facility] Serum or plasma calcium carol urement (mass/volume)Ordered By: Dr. Bliss on 04-13-2023 Calcium [Mass/Vol] 9.7 mg/dL 8.5-10.1 [facility] Serum or plasma creatinine m easurement (mass/volume)Ordered By: Dr. Bliss on 04-13-2023 Creatinine [Mass/Vol] 1.76 mg/dL 0.70-1.30 [facility] Comment on above: The validity of the calculated GFR & GFRAA in patients over 70 years has not been determined. Clinical correlation is essential. Serum or plasma urea nitroge n measurement (mass/volume)Ordered By: Dr. Bliss on 04-13-2023 Urea nitrogen [Mass/Vol] 38 mg/dL 7-18 [facility] Squamous epithelial cells de tection in urine sediment by light microscopyOrdered By: Dr. Bliss on 04-13-2023 Epithelial cells.squamous LM Ql (Urine sed) 0 SEEN /hpf 0-5 [facility] Thin prep Papanicolaou smear with manual screeningOrdered By: Dr. Bliss on 04-13-2023 Thin prep Papanicolaou smear with manual screening 13 U/L 15-37 [facility] Thin prep Papanicolaou smear with manual screening 6 5-15 [facility] Urine blood detectionOrdered By: Dr. Bliss on 04-13-2023 RBC Ql (U) Negative Negative [facility] RBC Ql (U) 0 SEEN /hpf 0-5 [facility] Urine clarityOrdered By: Dr. lBiss on 04-13-2023 Clarity (U) Clear Clear [facility] Urine color determinationOrd ered By: Dr. Bliss on 04-13-2023 Color (U) Yellow Yellow [facility] Urine glucose detectionOrder ed By: Dr. Bliss on 04-13-2023 Glucose Ql (U) Normal mg/dl Normal [facility] Urine leukocyte esterase det ection by dipstickOrdered By: Dr. Bliss on 04-13-2023 Leukocyte esterase Test strip Ql (U) Negative Negative [facility] Urine pHOrdered By: Dr. Kadie giordano on 04-13-2023 pH (U) 6.5 [pH] 5.0 - 8.0 [facility] Urine sediment bacteria coun t by microscopy (number/high power field)Ordered By: Dr. Bliss on 04-13-2023 Bacteria LM.HPF (Urine sed) [#/Area] 0 /[HPF] None Seen [facility] Urine specific gravity measu rementOrdered By: Dr. Bliss on 04-13-2023 Specific gravity (U) [Rel density] 1.010 1.002-1.03 0 [facility] Urobilinogen Auto test strip Ql (U)Ordered By: Dr. Bliss on 04-13-2023 Urobilinogen Ql (U) Normal mg/dl Normal [facility] Absolute lymphocyte countOrd ered By: Dr. Turner on 04-12-2023 Lymphocytes Auto (Unsp spec) [#/Vol] 0.46 10*3/uL 0.83-4.51 [facility] Basophil percentageOrdered B y: Fior Turner on 04-12-2023 Basophil percentage 143 mg/dL 74-106 [facility] Basophil percentage 140 mmol/L 136-145 [facility] Basophil percentage 3.5 mmol/L 3.5-5.1 [facility] Basophil percentage 106 mmol/L 98-107 [facility] Basophils (Bld) [#/Vol] 5.5 10*3/uL 4.4-11.0 [facility] Basophils (Bld) [#/Vol] 4.3 10*3/uL 2.0-7.7 [facility] Basophils/100 WBC (Bld) 78.1 % 47-70 [facility] Basophils/100 WBC (Bld) 5.1 % 0-5 [facility] Basophil percentageOrdered B y: Dr. Turner on 04-12-2023 Basophils/100 WBC (Bld) 0.4 % 0-1 [facility] Chloride [Moles/Vol] 106 mmol/L 98-107 [facility] Eosinophils/100 WBC (Bld) 5.1 % 0-5 [facility] Glucose [Mass/Vol] 143 mg/dL 74-106 [facility] Comment on above: Fasting Glucose resu lt greater than or equal to 126 mg/dL suggests DIABETES MELLITUS per A.D.A. criteria. Neutrophils (Bld) [#/Vol] 4.3 10*3/uL 2.0-7.7 [facility] Neutrophils/100 WBC (Bld) 78.1 % 47-70 [facility] Potassium [Moles/Vol] 3.5 mmol/L 3.5-5.1 [facility] Sodium [Moles/Vol] 140 mmol/L 136-145 [facility] WBC (Bld) [#/Vol] 5.5 10*3/uL 4.4-11.0 [facility] Blood erythrocytes count (nu mber/volume)Ordered By: Dr. Turner on 04-12-2023 RBC (Bld) [#/Vol] 3.93 10*6/uL 4.6-6.2 [facility] Blood hemoglobin measurement (mass/volume)Ordered By: Dr. Turner on 04-12-2023 Hemoglobin (Bld) [Mass/Vol] 12.7 g/dL 13.0-16.5 [facility] Blood lymphocytes/100 leukoc ytesOrdered By: Dr. Turner on 04-12-2023 Lymphocytes/100 WBC (Bld) 8.4 % 19-41 [facility] Blood manual differential co mment interpretation (narrative result)Ordered By: Dr. Turner on 04-12-2023 Manual differential comment Timur (Bld) [Interp] COMMENT [facility] Comment on above: LYMPHOPENIA NOTED Blood monocytes/100 leukocyt esOrdered By: Dr. Turner on 04-12-2023 Monocytes/100 WBC (Bld) 7.1 % 0-10 [facility] Blood platelet mean volumeOr dered By: Dr. Turner on 04-12-2023 Platelet mean volume (Bld) [Entitic vol] 11.0 fL 6.2-12.0 [facility] Determination of erythrocyte mean corpuscular volume (MCV)Ordered By: Dr. Turner on 04-12-2023 MCV (RBC) [Entitic vol] 97.2 fL 80-94 [facility] Glucose Glucometer (BldC) [M ass/Vol]Ordered By: Dr. Turner on 04-12-2023 Glucose [Mass/Vol] 314 mg/dL 74-106 [facility] Comment on above: MANAGEMENT OF PATIEN T CARE PER NURSING PROTOCOL Hematocrit Auto (Bld) [Volum e fraction]Ordered By: Dr. Turner on 04-12-2023 Hematocrit (Bld) [Volume fraction] 38.2 % 40-54 [facility] - Chemistry and C hemistry - challengeOrdered By: Dr. Turner on 04-12-2023 CO2 [Moles/Vol] 28.0 mmol/L 21.0-32.0 [facility] Urea nitrogen/Creatinine [Mass ratio] 20.8 mg/mg 10-20 [facility] - Hematology and Cell countsOrdered By: Dr. Turner on 04-12-2023 Erythrocyte distribution width (RBC) [Entitic vol] 48.8 fL 35.1-43.9 [facility] Erythrocyte distribution width (RBC) [Ratio] 13.7 % 11.6-14.6 [facility] Immature granulocytes/100 WBC (Bld) 0.900 % 0.0-0.9 [facility] Comment on above: IG% - Immature Granu locytes (promyelocytes, myelocytes and metamyelocytes) > 1% indicates that a LEFT SHIFT is Present. MCH (RBC) [Entitic mass] 32.3 pg 27.0-32.0 [facility] Nucleated RBC/100 WBC (Bld) [Ratio] 0 % 0-5 [facility] Auto (RBC) [Mass/Vol]Or dered By: Dr. Turner on 04-12-2023 MCHC (RBC) [Mass/Vol] 33.2 g/dL 32-36 [facility] No Panel InformationOrdered By: Dr. Turner on 04-12-2023 Estimated Creatinine Clearance Calc 54.99 ml/min [facility] Estimated GFR (MDRD) Amer 73 mL/min >60 [facility] Comment on above: GFR Calc Estimated GFR (MDRD) Non-Af Amer 61 mL/min >60 [facility] Comment on above: Non- GFR Calc No Panel InformationOrdered By: Fior Turner on 04-12-2023 32.3 pg 27.0-32.0 [facility] 13.7 % 11.6-14.6 [facility] 48.8 fl 35.1-43.9 [facility] 0.900 % 0.0-0.9 [facility] 0 % 0-5 [facility] 61 mL/min >60 [facility] 73 mL/min >60 [facility] 54.99 ml/min [facility] 20.8 RATIO 10-20 [facility] 28.0 mmol/L 21.0-32.0 [facility] Platelets bldOrdered By: Dr. Turner on 04-12-2023 Platelets (Bld) [#/Vol] 118 10*3/uL 150-450 [facility] Serum or plasma calcium carol urement (mass/volume)Ordered By: Dr. Turner on 04-12-2023 Calcium [Mass/Vol] 9.1 mg/dL 8.5-10.1 [facility] Serum or plasma creatinine m easurement (mass/volume)Ordered By: Dr. Turner on 04-12-2023 Creatinine [Mass/Vol] 1.25 mg/dL 0.70-1.30 [facility] Comment on above: The validity of the calculated GFR & GFRAA in patients over 70 years has not been determined. Clinical correlation is essential. Serum or plasma urea nitroge n measurement (mass/volume)Ordered By: Dr. Turner on 04-12-2023 Urea nitrogen [Mass/Vol] 26 mg/dL 7-18 [facility] Thin prep Papanicolaou smear with manual screeningOrdered By: Dr. Turner on 04-12-2023 Thin prep Papanicolaou smear with manual screening 6 5-15 [facility] Basophil percentageOrdered B y: Dr. Jacobs on 04-11-2023 Basophil percentage 3.1 mg/dL 2.5-4.9 [facility] - Chemistry and C hemistry - challengeOrdered By: Dr. Jacobs on 04-11-2023 Magnesium [Mass/Vol] 1.9 mg/dL 1.6-2.6 [facility] No Panel InformationOrdered By: Leonie Jacobs on 04-11-2023 1.9 mg/dL 1.6-2.6 [facility] Absolute lymphocyte countOrd ered By: Dr. Badillo on 04-10-2023 Lymphocytes Auto (Unsp spec) [#/Vol] 0.50 10*3/uL 0.83-4.51 [facility] Basophil percentageOrdered B y: Dr. Badillo on 04-10-2023 Basophil percentage 0 SEEN /hpf 0-5 [facility] Basophils/100 WBC (Bld) 0.4 % 0-1 [facility] Bilirubin [Mass/Vol] 0.90 mg/dL 0.20-1.00 [facility] Comment on above: For patients on eltr ombopag therapy, use of Dimension [place] TBIL is not recommended. Chloride [Moles/Vol] 104 mmol/L 98-107 [facility] Eosinophils/100 WBC (Bld) 1.4 % 0-5 [facility] Glucose [Mass/Vol] 216 mg/dL 74-106 [facility] Comment on above: Glucose result great er than or equal to 200 mg/dLsuggests DIABETES MELLITUS per A.D.A. criteria. Neutrophils (Bld) [#/Vol] 8.0 10*3/uL 2.0-7.7 [facility] Neutrophils/100 WBC (Bld) 85.5 % 47-70 [facility] Potassium [Moles/Vol] 4.0 mmol/L 3.5-5.1 [facility] Protein [Mass/Vol] 8.0 g/dL 6.4-8.2 [facility] Sodium [Moles/Vol] 139 mmol/L 136-145 [facility] WBC (Bld) [#/Vol] 9.3 10*3/uL 4.4-11.0 [facility] Basophil percentageOrdered B y: Victorino Badillo on 04-10-2023 Basophil percentage 8.0 g/dL 6.4-8.2 [facility] Basophil percentage 0.90 mg/dL 0.20-1.00 [facility] Bilirubin Test strip Ql (U)O rdered By: Dr. Badillo on 04-10-2023 Bilirubin Ql (U) Negative Negative [facility] Blood erythrocytes count (nu mber/volume)Ordered By: Dr. Badillo on 04-10-2023 RBC (Bld) [#/Vol] 4.14 10*6/uL 4.6-6.2 [facility] Blood hemoglobin measurement (mass/volume)Ordered By: Dr. Badillo on 04-10-2023 Hemoglobin (Bld) [Mass/Vol] 13.3 g/dL 13.0-16.5 [facility] Blood lymphocytes/100 leukoc ytesOrdered By: Dr. Badillo on 04-10-2023 Lymphocytes/100 WBC (Bld) 5.4 % 19-41 [facility] Blood manual differential co mment interpretation (narrative result)Ordered By: Dr. Badillo on 04-10-2023 Manual differential comment Timur (Bld) [Interp] COMMENT [facility] Comment on above: LYMPHOPENIA NOTED Blood monocytes/100 leukocyt esOrdered By: Dr. Badillo on 04-10-2023 Monocytes/100 WBC (Bld) 6.7 % 0-10 [facility] Blood platelet mean volumeOr dered By: Dr. Badillo on 04-10-2023 Platelet mean volume (Bld) [Entitic vol] 11.2 fL 6.2-12.0 [facility] Determination of erythrocyte mean corpuscular volume (MCV)Ordered By: Dr. Badillo on 04-10-2023 MCV (RBC) [Entitic vol] 96.6 fL 80-94 [facility] Hematocrit Auto (Bld) [Volum e fraction]Ordered By: Dr. Badillo on 04-10-2023 Hematocrit (Bld) [Volume fraction] 40.0 % 40-54 [facility] Ketones Test strip Ql (U)Ord ered By: Dr. Badillo on 04-10-2023 Ketones Ql (U) Negative Negative [facility] - Chemistry and C hemistry - challengeOrdered By: Dr. Badillo on 04-10-2023 ALP [Catalytic activity/Vol] 133 U/L 45-117 [facility] ALT [Catalytic activity/Vol] 12 U/L 16-61 [facility] CO2 [Moles/Vol] 28.0 mmol/L 21.0-32.0 [facility] Globulin (S) [Mass/Vol] 4.0 g/dL 2.2-4.2 [facility] Urea nitrogen/Creatinine [Mass ratio] 20.9 mg/mg 10-20 [facility] - Hematology and Cell countsOrdered By: Dr. Badillo on 04-10-2023 Erythrocyte distribution width (RBC) [Entitic vol] 48.4 fL 35.1-43.9 [facility] Erythrocyte distribution width (RBC) [Ratio] 13.8 % 11.6-14.6 [facility] Immature granulocytes/100 WBC (Bld) 0.600 % 0.0-0.9 [facility] Comment on above: IG% - Immature Granu locytes (promyelocytes, myelocytes and metamyelocytes) > 1% indicates that a LEFT SHIFT is Present. MCH (RBC) [Entitic mass] 32.1 pg 27.0-32.0 [facility] Nucleated RBC/100 WBC (Bld) [Ratio] 0 % 0-5 [facility] MCHC Auto (RBC) [Mass/Vol]Or dered By: Dr. Badillo on 04-10-2023 MCHC (RBC) [Mass/Vol] 33.3 g/dL 32-36 [facility] Mucus LM Ql (Urine sed)Order ed By: Dr. Badillo on 04-10-2023 Mucus Ql (Urine sed) 0 SEEN /hpf [facility] Nitrite Test strip Ql (U)Ord ered By: Dr. Badillo on 04-10-2023 Nitrite Ql (U) Negative Negative [facility] No Panel InformationOrdered By: Dr. Badillo on 04-10-2023 Estimated Creatinine Clearance Calc 49.45 ml/min [facility] Estimated GFR (MDRD) Amer 65 mL/min >60 [facility] Comment on above: GFR Calc Estimated GFR (MDRD) Non-Af Amer 54 mL/min >60 [facility] Comment on above: Non- GFR Calc No Panel InformationOrdered By: Victorino Badillo on 04-10-2023 4.0 g/dL 2.2-4.2 [facility] 133 U/L 45-117 [facility] 12 U/L 16-61 [facility] Platelets bldOrdered By: Dr. Badillo on 04-10-2023 Platelets (Bld) [#/Vol] 155 10*3/uL 150-450 [facility] Protein Test strip Ql (U)Ord ered By: Dr. Badillo on 04-10-2023 Protein Ql (U) Negative Negative [facility] Serum or plasma albumin carol urement (mass/volume)Ordered By: Dr. Badillo on 04-10-2023 Albumin [Mass/Vol] 4.0 g/dL 3.2-5.0 [facility] Serum or plasma albumin/glob ulin mass ratioOrdered By: Dr. Badillo on 04-10-2023 Albumin/Globulin [Mass ratio] 1.0 {ratio} 0.9-2.4 [facility] Serum or plasma calcium carol urement (mass/volume)Ordered By: Dr. Badillo on 04-10-2023 Calcium [Mass/Vol] 9.5 mg/dL 8.5-10.1 [facility] Serum or plasma creatinine m easurement (mass/volume)Ordered By: Dr. Badillo on 04-10-2023 Creatinine [Mass/Vol] 1.39 mg/dL 0.70-1.30 [facility] Comment on above: The validity of the calculated GFR & GFRAA in patients over 70 years has not been determined. Clinical correlation is essential. Serum or plasma urea nitroge n measurement (mass/volume)Ordered By: Dr. Badillo on 04-10-2023 Urea nitrogen [Mass/Vol] 29 mg/dL 7-18 [facility] Squamous epithelial cells de tection in urine sediment by light microscopyOrdered By: Dr. Badillo on 04-10-2023 Epithelial cells.squamous LM Ql (Urine sed) 0 SEEN /hpf 0-5 [facility] Thin prep Papanicolaou smear with manual screeningOrdered By: Dr. Badillo on 04-10-2023 Thin prep Papanicolaou smear with manual screening 16 U/L 15-37 [facility] Thin prep Papanicolaou smear with manual screening 7 5-15 [facility] Urine blood detectionOrdered By: Dr. Badillo on 04-10-2023 RBC Ql (U) Negative Negative [facility] RBC Ql (U) 0 SEEN /hpf 0-5 [facility] Urine clarityOrdered By: Dr. Badillo on 04-10-2023 Clarity (U) Clear Clear [facility] Urine color determinationOrd ered By: Dr. Badillo on 04-10-2023 Color (U) Yellow Yellow [facility] Urine glucose detectionOrder ed By: Dr. Badillo on 04-10-2023 Glucose Ql (U) Normal mg/dl Normal [facility] Urine leukocyte esterase det ection by dipstickOrdered By: Dr. Badillo on 04-10-2023 Leukocyte esterase Test strip Ql (U) Negative Negative [facility] Urine pHOrdered By: Dr. Zain steiner on 04-10-2023 pH (U) 6.0 [pH] 5.0 - 8.0 [facility] Urine sediment bacteria coun t by microscopy (number/high power field)Ordered By: Dr. Badillo on 04-10-2023 Bacteria LM.HPF (Urine sed) [#/Area] 0 /[HPF] None Seen [facility] Urine specific gravity measu rementOrdered By: Dr. Badillo on 04-10-2023 Specific gravity (U) [Rel density] 1.015 1.002-1.03 0 [facility] Urobilinogen Auto test strip Ql (U)Ordered By: Dr. Badillo on 04-10-2023 Urobilinogen Ql (U) Normal mg/dl Normal [facility] HEMOGLOBIN A1C (POC)on 03-23 HbA1c (Bld) [Mass fraction] 8.1 % Abnormal 4.2 - 5.6 % [facility] No Panel Informationon 03-09 [facility] No Panel InformationOrdered By: KEYSHAWN Cartagena on 01-27-2023 Prostate Specific Antigen Total < 0.01 ng/mL 0.0-4.0 [facility] Comment on above: This test was perfor med using the TPSA assay method for them[employer] chemistry system. Values obtained with differentassay methods cannot be used interchangably.When changing PSA assays in the course of monitoring apatient, additional sequential testing should be carriedout to confirm baseline values. < 0.01 ng/mL 0.0-4.0 [facility] Laboratory - Chemistry and C hemistry - challengeOrdered By: Dr. Horton on 01-06-2023 Free T4 [Mass/Vol] 1.01 ng/dL 0.76-1.46 [facility] No Panel InformationOrdered By: Dr. Horton on 01-06-2023 Free Triiodothyronine (T3) pg/dL 2.5 pg/mL 2.18-3.98 [facility] Thyroid Stimulating Hormone (TSH) 1.52 uIU/mL 0.358-3.74 [facility] No Panel InformationOrdered By: KEYSHAWN Cartagena on 10-21-2022 Prostate Specific Antigen Total < 0.01 ng/mL 0.0-4.0 [facility] Comment on above: This test was perfor med using the TPSA assay method for [facility] chemistry [facility]. Values obtained with differentassay methods cannot be used interchangably.When changing PSA assays in the course of monitoring apatient, additional sequential testing should be carriedout to confirm baseline values. CBC panel Auto (Bld)on 09-02 Erythrocyte distribution width (RBC) [Ratio] 13.2 % 11.5 - 15.0 % [facility] Hematocrit (Bld) [Volume fraction] 40.5 % 39.0 - 51.0 % [facility] Hemoglobin (Bld) [Mass/Vol] 13.0 g/dL 13.0 - 17.0 g/dL [facility] MCH (RBC) [Entitic mass] 32.3 pg 26. 0 - 34.0 pg [facility] MCHC (RBC) [Mass/Vol] 32.1 g/dL 30.5 - 36.0 g/dL [facility] MCV (RBC) [Entitic vol] 100.7 fL High 80.0 - 100.0 fL [facility] Nucleated RBC (Bld) [#/Vol] <0.01 k/uL [facility] Platelet mean volume (Bld) [Entitic vol] 11.0 fL 9.0 - 12.7 fL [facility] Platelets (Bld) [#/Vol] 122 10*3/uL Low 150 - 400 k/uL [facility] RBC (Bld) [#/Vol] 4.02 10*6/uL Low 4.20 - 6.00 m/uL [facility] WBC (Bld) [#/Vol] 6.08 10*3/uL 3.70 - 11.00 k/uL [facility] Comprehensive metabolic 2000 panelon 09-02-2022 Albumin [Mass/Vol] 4.3 g/dL 3.9 - 4.9 g/dL [facility] ALP [Catalytic activity/Vol] 137 U/L High 38 - 113 U/L [facility] ALT [Catalytic activity/Vol] 14 U/L 10 - 54 U/L [facility] Anion gap [Moles/Vol] 7 mmol/L Low 9 - 18 mmol/L [facility] AST [Catalytic activity/Vol] 20 U/L 14 - 40 U/L [facility] Bilirubin [Mass/Vol] 0.5 mg/dL 0.2 - 1 .3 mg/dL [facility] Calcium [Mass/Vol] 10.1 mg/dL 8.5 - 10. 2 mg/dL [facility] Chloride [Moles/Vol] 102 mmol/L 97 - 10 5 mmol/L [facility] CO2 [Moles/Vol] 29 mmol/L 22 - 30 mmol/L [facility] Creatinine [Mass/Vol] 1.25 mg/dL High 0.73 - 1.22 mg/dL [facility] Estimated Glomerular Filtration Rate 62 mL/min/1.73m >=60 mL/min/1.7 3m [facility] Glucose [Mass/Vol] 171 mg/dL High 74 - 99 mg/dL [facility] Potassium [Moles/Vol] 5.3 mmol/L High 3.7 - 5.1 mmol/L [facility] Protein [Mass/Vol] 7.5 g/dL 6.3 - 8.0 g/dL [facility] Sodium [Moles/Vol] 138 mmol/L 136 - 144 mmol/L [facility] Urea nitrogen [Mass/Vol] 28 mg/dL High 9 - 24 mg/dL [facility] No Panel Informationon 09-02 [facility] PT panel Coag (PPP)on 2021 INR Coag (PPP) [Relative time] 1.2 {INR} 0.9 - 1.3 [facility] PT Coag (PPP) [Time] 12.7 s 9.7 - 1 3.0 sec [facility] US ABD SPLEEN - NBon 022 [facility] Albumin Elph [Mass/Vol]Order ed By: Dr. Horton on 08-09-2022 Albumin [Mass/Vol] 3.8 g/dL 2.9-4.4 [facility] Basophil percentageOrdered B y: Dr. Horton on 08-09-2022 Basophil percentage Comment . [facility] Comment on above: No monoclonality det ected.Performed at: [facility] [employer] [address] [id number] Director: Jay Grijalva PhD, Phone: [phone] Interpretation of serum or p lasma protein pattern by immunofixation (narrative resultOrdered By: Dr. Horton on 08-09-2022 Protein Fractions Immunofixation Timur [Interp] See comment [facility] Comment on above: Result: Not Observed No Panel InformationOrdered By: Dr. Horton on 08-09-2022 Addendum Document Comment . [facility] Comment on above: Protein electrophore sis scan will follow via computer,mail, or rehab technician delivery. Serum [id number] measu rement by electrophoresisOrdered By: Dr. Horton on 08-09-2022 Alpha 1 globulin Elph [Mass/Vol] 0.3 g/dL 0.0-0.4 [facility] Alpha 1 globulin Elph [Mass/Vol] 0.7 g/dL 0.4-1.0 [facility] Serum globulin measurement ( mass/volume)Ordered By: Dr. Horton on 08-09-2022 Globulin (S) [Mass/Vol] 3.7 g/dL 2.2-3.9 [facility] Serum or plasma IgA measurem ent (mass/volume)Ordered By: Dr. Horton on 08-09-2022 IgA [Mass/Vol] 152 mg/dL 61-437 [facility] Serum or plasma IgG measurem ent (mass/volume)Ordered By: Dr. Horton on 08-09-2022 IgG [Mass/Vol] 1578 mg/dL 603-1613 [facility] Serum or plasma IgM measurem ent (mass/volume)Ordered By: Dr. Horton on 08-09-2022 IgM [Mass/Vol] 37 mg/dL 20-172 [facility] Serum or plasma beta globuli n measurement by electrophoresis (mass/volume)Ordered By: Dr. Horton on 08-09-2022 Beta globulin Elph [Mass/Vol] 1.2 g/dL 0.7-1.3 [facility] Serum or plasma gamma globul in measurement by electrophoresis (mass/volume)Ordered By: Dr. Horton on 08-09-2022 Gamma globulin Elph [Mass/Vol] 1.5 g/dL 0.4-1.8 [facility] Serum or plasma immunoelectr ophoresis interpretation (nominal result)Ordered By: Dr. Horton on 08-09-2022 Interpretation IEP [Interp] Comment . [facility] Comment on above: No monoclonality det ected. Thin prep Papanicolaou smear with manual screeningOrdered By: Dr. Horton on 08-09-2022 Thin prep Papanicolaou smear with manual screening 1.1 0.7-1.7 [facility] Total protein bloodOrdered B y: Dr. Horton on 08-09-2022 Protein [Mass/Vol] 7.5 g/dL 6.0-8.5 [facility] XR HIP RIGHT WITH PELVIS 2-3 VIEWS (ROUTINE)on 06-15-2022 XR HIP RIGHT WITH PELVIS 2-3 VIEWS (ROUTINE) EXAMINATION: XR HIP RIGHT WITH PELVIS 2-3 VIEWS (ROUTINE) HISTORY: pain Dx: Hip fracture requiring operative repair, right, closed, initial encounter ([facility]) S72.001A (ICD-10-CM); Status post hip hemiarthroplasty Z96.649 [...] Prominent right femoral vascular calcifications are apparent. RWA/trn Workstation ID: [id number] Dictated by: KODI LANZA on TueJun 16, 2022 10:35:10 AM EDT Transcribed by: SIDDHARTH ALEXANDRE on TueJun 16, 2022 11:01:51 AM EDT Finalized by: KODI LANZA on TueJun 16, 2022 11:17:07 AM EDT Normal [facility] Comment on above: Order Comment: Injur y/Trauma or Illness?:Injury/Trauma How long have you had these symptoms (acute/chronic)?:Acute Reason for exam?:POST OP RIGHT HIP SX 02/13/22 History of cancer?: Surgeries, chemotherapy, or radiation?: Type of Exam?:Subsequent/Follow-up Mechanism of injury?:fall Absolute lymphocyte counton 06-07-2022 Lymphocytes Auto (Unsp spec) [#/Vol] 0.44 10*3/uL 0.83-4.51 [facility] Work Phone: Basophil percentageon 2021 Basophil percentage 0-5 SEEN /hpf 0-5 [facility] Work Phone: Ammonia (P) [Moles/Vol] 14.0 umol/L 11-32 [facility] Work Phone: Basophils/100 WBC (Bld) 0.4 % 0-1 [facility] Work Phone: Bilirubin [Mass/Vol] 0.80 mg/dL 0.20-1.00 [facility] Work Phone: Comment on above: For patients on eltr ombopag therapy, use of Dimension [place] TBIL is not recommended. Chloride [Moles/Vol] 100 mmol/L 98-107 [facility] Work Phone: Eosinophils/100 WBC (Bld) 0.7 % 0-5 [facility] Work Phone: Glucose [Mass/Vol] 376 mg/dL 74-106 [facility] Work Phone: [phone] Comment on above: Glucose result great er than or equal to 200 mg/dLsuggests DIABETES MELLITUS per A.D.A. criteria. Neutrophils (Bld) [#/Vol] 6.6 10*3/uL 2.0-7.7 [facility] Work Phone: [phone] Neutrophils/100 WBC (Bld) 86.1 % 47-70 [facility] Work Phone: [phone] Potassium [Moles/Vol] 4.5 mmol/L 3.5-5.1 [facility] Work Phone: Comment on above: Moderate Hemolysis, Result may be falsely increased. Protein [Mass/Vol] 8.3 g/dL 6.4-8.2 [facility] Work Phone: Sodium [Moles/Vol] 136 mmol/L 136-145 [facility] Work Phone: [phone] WBC (Bld) [#/Vol] 7.6 10*3/uL 4.4-11.0 [facility] Work Phone: Bilirubin Test strip Ql (U)o n 06-07-2022 Bilirubin Ql (U) Negative Negative [facility] Work Phone: [phone] Blood erythrocytes count (nu mber/volume)on 06-07-2022 RBC (Bld) [#/Vol] 4.26 10*6/uL 4.6-6.2 [facility] Work Phone: [phone] Blood hemoglobin measurement (mass/volume)on 06-07-2022 Hemoglobin (Bld) [Mass/Vol] 13.1 g/dL 13.0-16.5 [facility] Work Phone: [phone] Blood lymphocytes/100 leukoc yteson 06-07-2022 Lymphocytes/100 WBC (Bld) 5.8 % 19-41 [facility] Work Phone: Blood monocytes/100 leukocyt eson 06-07-2022 Monocytes/100 WBC (Bld) 6.0 % 0-10 [facility] Work Phone: [phone] Blood platelet adequacy dete ction by light microscopyon 06-07-2022 Platelets LM Ql (Bld) SLT DEC [facility] Work Phone: Blood platelet mean volumeon 06-07-2022 Platelet mean volume (Bld) [Entitic vol] 12.1 fL 6.2-12.0 [facility] Work Phone: [phone] Determination of erythrocyte mean corpuscular volume (MCV)on 06-07-2022 MCV (RBC) [Entitic vol] 93.4 fL 80-94 [facility] Work Phone: [phone] Direct bilirubinon Bilirubin.direct [Mass/Vol] 0.19 mg/dL 0.00-0.30 [facility] Work Phone: [phone] Hematocrit Auto (Bld) [Volum e fraction]on 06-07-2022 Hematocrit (Bld) [Volume fraction] 39.8 % 40-54 [facility] Work Phone: [phone] Ketones Test strip Ql (U)on 06-07-2022 Ketones Ql (U) Negative Negative [facility] Work Phone: Laboratory - Chemistry and C hemistry - challengeon 06-07-2022 ALP [Catalytic activity/Vol] 154 U/L 45-117 [facility] Work Phone: [phone] ALT [Catalytic activity/Vol] 23 U/L 16-61 [facility] Work Phone: [phone] CO2 [Moles/Vol] 27.0 mmol/L 21.0-32.0 [facility] Work Phone: [phone] Globulin (S) [Mass/Vol] 4.7 g/dL 2.2-4.2 [facility] Work Phone: [phone] Natriuretic peptide B (Bld) [Mass/Vol] 244.9 pg/mL 0-100 [facility] Work Phone: Urea nitrogen/Creatinine [Mass ratio] 19.9 mg/mg 10-20 [facility] Work Phone: Laboratory - Hematology and Cell countson 06-07-2022 Erythrocyte distribution width (RBC) [Entitic vol] 50.3 fL 35.1-43.9 [facility] Work Phone: Erythrocyte distribution width (RBC) [Ratio] 14.6 % 11.6-14.6 [facility] Work Phone: Immature granulocytes/100 WBC (Bld) 1.000 % 0.0-0.9 [facility] Work Phone: Comment on above: IG% - Immature Granu locytes (promyelocytes, myelocytes and metamyelocytes) > 1% indicates that a LEFT SHIFT is Present. MCH (RBC) [Entitic mass] 30.8 pg 27.0-32.0 [facility] Work Phone: Nucleated RBC/100 WBC (Bld) [Ratio] 0 % 0-5 [facility] Work Phone: MCHC Auto (RBC) [Mass/Vol]on 06-07-2022 MCHC (RBC) [Mass/Vol] 32.9 g/dL 32-36 [facility] Work Phone: Mucus LM Ql (Urine sed)on Mucus Ql (Urine sed) 0 SEEN /hpf [facility] Work Phone: Nitrite Test strip Ql (U)on 06-07-2022 Nitrite Ql (U) Negative Negative [facility] Work Phone: No Panel Informationon 06-07 Estimated Creatinine Clearance Calc 40.77 ml/min [facility] Work Phone: Estimated GFR (MDRD) Amer 51 mL/min >60 [facility] Work Phone: Comment on above: GFR Calc Estimated GFR (MDRD) Non-Af Amer 42 mL/min >60 [facility] Work Phone: Comment on above: Non- GFR Calc Troponin I High Sensitivity 90 pg/mL 3.0-78.0 [facility] Work Phone: Comment on above: Please Note: [place] t Units and Gender Specific Reference Ranges. For more information see Policy Stat Procedure [place] High Sensitivity Troponin (TNIH) and attachments. Platelets bldon 06-07-2022 Platelets (Bld) [#/Vol] See comment 150-450 [facility] Work Phone: Comment on above: Please [...] 06-07-2022 Protein Ql (U) 15 mg/dl Negative [facility] Work Phone: Serum or plasma albumin carol urement (mass/volume)on 06-07-2022 Albumin [Mass/Vol] 3.6 g/dL 3.2-5.0 [facility] Work Phone: Serum or plasma calcium carol urement (mass/volume)on 06-07-2022 Calcium [Mass/Vol] 10.4 mg/dL 8.5-10.1 [facility] Work Phone: Serum or plasma creatinine m easurement (mass/volume)on 06-07-2022 Creatinine [Mass/Vol] 1.71 mg/dL 0.70-1.30 [facility] Work Phone: Comment on above: The validity of the calculated GFR & GFRAA in patients over 70 years has not been determined. Clinical correlation is essential. Serum or plasma urea nitroge n measurement (mass/volume)on 06-07-2022 Urea nitrogen [Mass/Vol] 34 mg/dL 7-18 [facility] Work Phone: Squamous epithelial cells de tection in urine sediment by light microscopyon 06-07-2022 Epithelial cells.squamous LM Ql (Urine sed) 0-5 SEEN /hpf 0-5 [facility] Work Phone: Thin prep Papanicolaou smear with manual screeningon 06-07-2022 Thin prep Papanicolaou smear with manual screening 40 U/L 15-37 [facility] Work Phone: Comment on above: Moderate Hemolysis, Result may be falsely increased. Thin prep Papanicolaou smear with manual screening 9 5-15 [facility] Work Phone: Urine blood detectionon 08-0 RBC Ql (U) 150 /ul Negative [facility] Work Phone: [phone] RBC Ql (U) 0-5 SEEN /hpf 0-5 [facility] Work Phone: Urine clarityon 06-07-2022 Clarity (U) Clear Clear [facility] Work Phone: Urine color determinationon 06-07-2022 Color (U) Yellow Yellow [facility] Work Phone: Urine glucose detectionon Glucose Ql (U) 250 mg/dl Normal [facility] Work Phone: Urine leukocyte esterase det ection by dipstickon 06-07-2022 Leukocyte esterase Test strip Ql (U) Negative Negative [facility] Work Phone: Urine pHon 06-07-2022 pH (U) 6.0 [pH] 5.0 - 8.0 [facility] Work Phone: Urine sediment bacteria coun t by microscopy (number/high power field)on 06-07-2022 Bacteria LM.HPF (Urine sed) [#/Area] RARE /hpf None Seen [facility] Work Phone: Urine specific gravity measu rementon 06-07-2022 Specific gravity (U) [Rel density] 1.015 1.002-1.03 0 [facility] Work Phone: Urobilinogen Auto test strip Ql (U)on 06-07-2022 Urobilinogen Ql (U) Normal mg/dl Normal [facility] Work Phone: Basophil percentageon 2021 Bilirubin [Mass/Vol] 0.70 mg/dL 0.20-1.00 [facility] Work Phone: Comment on above: For patients on eltr ombopag therapy, use of Dimension [place] TBIL is not recommended. Chloride [Moles/Vol] 102 mmol/L 98-107 [facility] Work Phone: Glucose [Mass/Vol] 250 mg/dL 74-106 [facility] Work Phone: Comment on above: Glucose result great er than or equal to 200 mg/dLsuggests DIABETES MELLITUS per A.D.A. criteria. Potassium [Moles/Vol] 3.7 mmol/L 3.5-5.1 [facility] Work Phone: Protein [Mass/Vol] 7.8 g/dL 6.4-8.2 [facility] Work Phone: Sodium [Moles/Vol] 137 mmol/L 136-145 [facility] Work Phone: Laboratory - Chemistry and C hemistry - challengeon 05-24-2022 ALP [Catalytic activity/Vol] 183 U/L 45-117 [facility] Work Phone: ALT [Catalytic activity/Vol] 23 U/L 16-61 [facility] Work Phone: CO2 [Moles/Vol] 28.0 mmol/L 21.0-32.0 [facility] Work Phone: Cobalamin (Vitamin B12) [Mass/Vol] 837 pg/mL 211-911 [facility] Work Phone: Globulin (S) [Mass/Vol] 4.3 g/dL 2.2-4.2 [facility] Work Phone: Urea nitrogen/Creatinine [Mass ratio] 25.8 mg/mg 10-20 [facility] Work Phone: No Panel Informationon 05-24 Estimated GFR (MDRD) Amer 69 mL/min >60 [facility] Work Phone: Comment on above: GFR Calc Estimated GFR (MDRD) Non-Af Amer 57 mL/min >60 [facility] Work Phone: Comment on above: Non- GFR Calc Free Lambda Light Chains, Quant 57.5 mg/L 5.7-26.3 [facility] Work Phone: Thyroid Stimulating Hormone (TSH) 2.50 uIU/mL 0.358-3.74 [facility] Work Phone: Whole Blood Vitamin B1 Level 196.2 nmol/L 66.5-200.0 [facility] Work Phone: Comment on above: Performed at: [facility] [employer] [id number] Director: Jay Grijalva PhD, Phone: [phone] at: [facility] [id number] Director: Jordan Landeros MD, Phone: [phone] Serum immunoglobulin kappa l ight chains/immunoglobulin lambda light chains mass ratioon 05-24-2022 Immunoglobulin light chains.kappa/Immunoglobu sandy light chains.lambda (S) [Mass ratio] 1.15 0.26-1.65 [facility] Work Phone: Serum or plasma albumin carol urement (mass/volume)on 05-24-2022 Albumin [Mass/Vol] 3.5 g/dL 3.2-5.0 [facility] Work Phone: Serum or plasma albumin/glob ulin mass ratioon 05-24-2022 Albumin/Globulin [Mass ratio] 0.8 {ratio} 0.9-2.4 [facility] Work Phone: Serum or plasma calcium carol urement (mass/volume)on 05-24-2022 Calcium [Mass/Vol] 9.5 mg/dL 8.5-10.1 [facility] Work Phone: Serum or plasma creatinine m easurement (mass/volume)on 05-24-2022 Creatinine [Mass/Vol] 1.32 mg/dL 0.70-1.30 [facility] Work Phone: Comment on above: The validity of the calculated GFR & GFRAA in patients over 70 years has not been determined. Clinical correlation is essential. Serum or plasma folate measu rement (mass/volume)on 05-24-2022 Folate [Mass/Vol] 24.10 ng/mL 3.1-55.4 [facility] Work Phone: Serum or plasma immunoglobul in kappa light chains measurement (mass/volume)on 05-24-2022 Immunoglobulin light chains.kappa [Mass/Vol] 66.1 mg/L 3.3-19.4 [facility] Work Phone: Serum or plasma urea nitroge n measurement (mass/volume)on 05-24-2022 Urea nitrogen [Mass/Vol] 34 mg/dL -18 [facility] Work Phone: Thin prep Papanicolaou smear with manual screeningon 05-24-2022 Thin prep Papanicolaou smear with manual screening 13 U/L 15-37 [facility] Work Phone: Thin prep Papanicolaou smear with manual screening 7 5-15 [facility] Work Phone: XR HIP RIGHT WITH [...] hip replacement. Prominent vascular calcifications are noted. RWA/[facility] Workstation ID: [id number] Dictated by: KODI LANZA on TueMay 21, 2022 10:24:42 AM EDT Transcribed by: SIDDHARTH ALEXANDRE on TueMay 21, 2022 10:37:15 AM EDT Finalized by: KODI LANZA on TueMay 21, 2022 10:48:53 AM EDT [facility] Comment on above: Order Comment: Injur [...] whether these clips are intra or extracranial. [employer] Workstation ID: [id number] Dictated by: AMBROSIO DENNEY on TueMay 05, 2022 1:32:49 PM EDT Transcribed by: WANDER FERRARO on TueMay 05, 2022 1:52:18 PM EDT Finalized by: AMBROSIO DENNEY on TueMay 05, 2022 6:58:06 PM EDT [facility] Comment on above: Order Comment: PATIE NT WAITING TO GO IN MRI SCANNER. Injury/Trauma or Illness?:Illness/Other How long have you had these symptoms (acute/chronic)?:Acute Reason for exam?:NEEDED TO CLEAR FOR MRI, Hx of brain surgery History of cancer?: Surgeries, chemotherapy, or radiation?: Type of Exam?:Initial Additional signs and symptoms?: Absolute lymphocyte counton 04-30-2022 Lymphocytes Auto (Unsp spec) [#/Vol] 0.37 10*3/uL 0.83-4.51 [facility] Work Phone: Basophil percentageon 2021 Basophils/100 WBC (Bld) 0.5 % 0-1 [facility] Work Phone: Chloride [Moles/Vol] 102 mmol/L 98-107 [facility] Work Phone: Eosinophils/100 WBC (Bld) 3.6 % 0-5 [facility] Work Phone: Glucose [Mass/Vol] 190 mg/dL 74-106 [facility] Work Phone: Comment on above: Fasting Glucose resu lt greater than or equal to 126 mg/dL suggests DIABETES MELLITUS per A.D.A. criteria. Neutrophils (Bld) [#/Vol] 7.3 10*3/uL 2.0-7.7 [facility] Work Phone: [phone] Neutrophils/100 WBC (Bld) 83.3 % 47-70 [facility] Work Phone: Potassium [Moles/Vol] 4.3 mmol/L 3.5-5.1 [facility] Work Phone: Sodium [Moles/Vol] 137 mmol/L 136-145 [facility] Work Phone: WBC (Bld) [#/Vol] 8.7 10*3/uL 4.4-11.0 [facility] Work Phone: [phone] Blood erythrocytes count (nu mber/volume)on 04-30-2022 RBC (Bld) [#/Vol] 3.89 10*6/uL 4.6-6.2 [facility] Work Phone: Blood hemoglobin measurement (mass/volume)on 04-30-2022 Hemoglobin (Bld) [Mass/Vol] 12.0 g/dL 13.0-16.5 [facility] Work Phone: Blood lymphocytes/100 leukoc yteson 04-30-2022 Lymphocytes/100 WBC (Bld) 4.3 % 19-41 [facility] Work Phone: [phone] Blood manual differential co mment interpretation (narrative result)on 04-30-2022 Manual differential comment Timur (Bld) [Interp] SCANNED [facility] Work Phone: [phone] Comment on above: LYMPHOPENIA NOTED Blood monocytes/100 leukocyt eson 04-30-2022 Monocytes/100 WBC (Bld) 6.8 % 0-10 [facility] Work Phone: [phone] Blood platelet mean volumeon 04-30-2022 Platelet mean volume (Bld) [Entitic vol] 12.2 fL 6.2-12.0 [facility] Work Phone: [phone] Determination of erythrocyte mean corpuscular volume (MCV)on 04-30-2022 MCV (RBC) [Entitic vol] 98.2 fL 80-94 [facility] Work Phone: [phone] Hematocrit Auto (Bld) [Volum e fraction]on 04-30-2022 Hematocrit (Bld) [Volume fraction] 38.2 % 40-54 [facility] Work Phone: [phone] Laboratory - Chemistry and C hemistry - challengeon 04-30-2022 CO2 [Moles/Vol] 30.0 mmol/L 21.0-32.0 [facility] Work Phone: Magnesium [Mass/Vol] 2.2 mg/dL 1.6-2.6 [facility] Work Phone: Natriuretic peptide B (Bld) [Mass/Vol] 674.3 pg/mL 0-100 [facility] Work Phone: Urea nitrogen/Creatinine [Mass ratio] 27.4 mg/mg 10-20 [facility] Work Phone: Laboratory - Hematology and Cell countson 04-30-2022 Anisocytosis Ql (Bld) 1+ [facility]: Erythrocyte distribution width (RBC) [Entitic vol] 66.2 fL 35.1-43.9 [facility] Work Phone: Erythrocyte distribution width (RBC) [Ratio] 18.3 % 11.6-14.6 [facility] Work Phone: Immature granulocytes/100 WBC (Bld) 1.500 % 0.0-0.9 [facility] Work Phone: Comment on above: IG% - Immature Granu locytes (promyelocytes, myelocytes and metamyelocytes) > 1% indicates that a LEFT SHIFT is Present. MCH (RBC) [Entitic mass] 30.8 pg 27.0-32.0 [facility] Work Phone: Nucleated RBC/100 WBC (Bld) [Ratio] 0 % 0-5 [facility] Work Phone: MCHC Auto (RBC) [Mass/Vol]on 04-30-2022 MCHC (RBC) [Mass/Vol] 31.4 g/dL 32-36 [facility] Work Phone: Macrocytes detectionon 04-30 Macrocytes Ql (Bld) 1+ [facility] Work Phone: No Panel Informationon 04-30 Estimated Creatinine Clearance Calc 51.64 ml/min [facility] Work Phone: Estimated GFR (MDRD) Amer 67 mL/min >60 [facility] Work Phone: Comment on above: GFR Calc Estimated GFR (MDRD) Non-Af Amer 56 mL/min >60 [facility] Work Phone: Comment on above: Non- GFR Calc Platelets bldon 04-30-2022 Platelets (Bld) [#/Vol] 123 10*3/uL 150-450 [facility] Work Phone: Serum or plasma calcium carol urement (mass/volume)on 04-30-2022 Calcium [Mass/Vol] 8.7 mg/dL 8.5-10.1 [facility] Work Phone: Serum or plasma creatinine m easurement (mass/volume)on 04-30-2022 Creatinine [Mass/Vol] 1.35 mg/dL 0.70-1.30 [facility] Work Phone: Comment on above: The validity of the calculated GFR & GFRAA in patients over 70 years has not been determined. Clinical correlation is essential. Serum or plasma urea nitroge n measurement (mass/volume)on 04-30-2022 Urea nitrogen [Mass/Vol] 37 mg/dL 7-18 [facility] Work Phone: Thin prep Papanicolaou smear with manual screeningon 04-30-2022 Thin prep Papanicolaou smear with manual screening 5 5-15 [facility] Work Phone: Basophil percentageon 2021 Chloride [Moles/Vol] 102 mmol/L 98-107 [facility] Work Phone: Glucose [Mass/Vol] 93 mg/dL 74-106 [facility] Work Phone: Potassium [Moles/Vol] 4.5 mmol/L 3.5-5.1 [facility] Work Phone: Sodium [Moles/Vol] 137 mmol/L 136-145 [facility] Work Phone: Glucose Glucometer (BldC) [M ass/Vol]on 04-27-2022 Glucose [Mass/Vol] 85 mg/dL 74-106 [facility] Work Phone: Comment on above: MANAGEMENT OF PATIEN T CARE PER NURSING PROTOCOL Laboratory - Chemistry and C hemistry - challengeon 04-27-2022 CO2 [Moles/Vol] 28.0 mmol/L 21.0-32.0 [facility] Work Phone: Urea nitrogen/Creatinine [Mass ratio] 30.7 mg/mg 10-20 [facility] Work Phone: No Panel Informationon 04-27 Estimated Creatinine Clearance Calc 39.61 ml/min [facility] Work Phone: Estimated GFR (MDRD) Amer 50 mL/min >60 [facility] Work Phone: Comment on above: GFR Calc Estimated GFR (MDRD) Non-Af Amer 41 mL/min >60 [facility] Work Phone: Comment on above: Non- GFR Calc Serum or plasma calcium carol urement (mass/volume)on 04-27-2022 Calcium [Mass/Vol] 8.9 mg/dL 8.5-10.[address] [facility] Work Phone: Serum or plasma creatinine m easurement (mass/volume)on 04-27-2022 Creatinine [Mass/Vol] 1.76 mg/dL 0.70-1.30 [facility] Work Phone: Comment on above: The validity of the calculated GFR & GFRAA in patients over 70 years has not been determined. Clinical correlation is essential. Serum or plasma urea nitroge n measurement (mass/volume)on 04-27-2022 Urea nitrogen [Mass/Vol] 54 mg/dL 7-18 [facility] Work Phone: Thin prep Papanicolaou smear with manual screeningon 04-27-2022 Thin prep Papanicolaou smear with manual screening 7 5-15 [facility] Work Phone: Absolute lymphocyte counton 04-26-2022 Lymphocytes Auto (Unsp spec) [#/Vol] 0.22 10*3/uL 0.83-4.51 [facility] Work Phone: Basophil percentageon 2021 Basophils/100 WBC (Bld) 0.2 % 0-1 [facility] Work Phone: Bilirubin [Mass/Vol] 1.00 mg/dL 0.20-1.00 [facility] Work [facility]: Comment on above: For patients on eltr ombopag therapy, use of Dimension [place] TBIL is not recommended. Cholesterol [Mass/Vol] 103 mg/dL <200 [facility] Work Phone: Comment on above: <200 mg/dL Desirable 200-240 mg/dL Borderline >240 mg/dL High Risk Eosinophils/100 WBC (Bld) 0.1 % 0-5 [facility] Work Phone: Neutrophils (Bld) [#/Vol] 7.8 10*3/uL 2.0-7.7 [facility] Work Phone: Neutrophils/100 WBC (Bld) 94.1 % 47-70 [facility] Work Phone: [phone] Protein [Mass/Vol] 6.8 g/dL 6.4-8.2 [facility] Work Phone: [phone] Triglyceride [Mass/Vol] 50 mg/dL <199 [facility] Work Phone: [phone] Comment on above: The drugs N-Acetylcy steine and Metamizole may falsely depress this assay.Serum Triglycerides Reference Interval Normal <150 mg/dL Borderline high 150 - 199 mg/dL High 200 - 499 mg/dL Very High > or = 500 mg/dL WBC (Bld) [#/Vol] 8.3 10*3/uL 4.4-11.0 [facility] Work Phone: [phone] Blood erythrocytes count (nu mber/volume)on 04-26-2022 RBC (Bld) [#/Vol] 3.90 10*6/uL 4.6-6.2 [facility] Work Phone: [phone] Blood hemoglobin measurement (mass/volume)on 04-26-2022 Hemoglobin (Bld) [Mass/Vol] 12.1 g/dL 13.0-16.5 [facility] Work Phone: Blood lymphocytes/100 leukoc yteson 04-26-2022 Lymphocytes/100 WBC (Bld) 2.6 % 19-41 [facility] Work Phone: Blood manual differential co mment interpretation (narrative result)on 04-26-2022 Manual differential comment Timur (Bld) [Interp] SCANNED [facility] Work Phone: Blood monocytes/100 leukocyt eson 04-26-2022 Monocytes/100 WBC (Bld) 1.9 % 0-10 [facility] Work Phone: Blood platelet mean volumeon 04-26-2022 Platelet mean volume (Bld) [Entitic vol] 11.5 fL 6.2-12.0 [facility] Work Phone: Determination of erythrocyte mean corpuscular volume (MCV)on 04-26-2022 MCV (RBC) [Entitic vol] 100.3 fL 80-94 [facility] Work Phone: Hematocrit Auto (Bld) [Volum e fraction]on 04-26-2022 Hematocrit (Bld) [Volume fraction] 39.1 % 40-54 [facility] Work Phone: Laboratory - Chemistry and C hemistry - challengeon 04-26-2022 ALP [Catalytic activity/Vol] 211 U/L 45-117 [facility] Work Phone: [phone] ALT [Catalytic activity/Vol] 31 U/L 16-61 [facility] Work Phone: Globulin (S) [Mass/Vol] 3.9 g/dL 2.2-4.2 [facility] Work Phone: Laboratory - Hematology and Cell countson 04-26-2022 Erythrocyte distribution width (RBC) [Entitic vol] 68.8 fL 35.1-43.9 [facility] Work Phone: [phone] Erythrocyte distribution width (RBC) [Ratio] 18.6 % 11.6-14.6 [facility] Work Phone: [phone] Immature granulocytes/100 WBC (Bld) 1.100 % 0.0-0.9 [facility] Work Phone: Comment on above: IG% - Immature Granu locytes (promyelocytes, myelocytes and metamyelocytes) > 1% indicates that a LEFT SHIFT is Present. MCH (RBC) [Entitic mass] 31.0 pg 27.0-32.0 [facility] Work Phone: [phone] Nucleated RBC/100 WBC (Bld) [Ratio] 0 % 0-5 [facility] Work Phone: [phone] MCHC Auto (RBC) [Mass/Vol]on 04-26-2022 MCHC (RBC) [Mass/Vol] 30.9 g/dL 32-36 [facility] Work Phone: No Panel Informationon 04-26 Troponin I High Sensitivity 92 pg/mL 3.0-78.0 [facility] Work Phone: Comment on above: Please Note: [place] t Units and Gender Specific Reference Ranges. For more information see Policy Stat Procedure [place] High Sensitivity Troponin (TNIH) and attachments. Platelets bldon 04-26-2022 Platelets (Bld) [#/Vol] 154 10*3/uL 150-450 [facility] Work Phone: Serum or plasma albumin carol urement (mass/volume)on 04-26-2022 Albumin [Mass/Vol] 2.9 g/dL 3.2-5.0 [facility] Work Phone: Serum or plasma albumin/glob ulin mass ratioon 04-26-2022 Albumin/Globulin [Mass ratio] 0.7 {ratio} 0.9-2.4 [facility] Work Phone: Serum or plasma cholesterol in HDL measurement (mass/volume)on 04-26-2022 Cholesterol in HDL [Mass/Vol] 29 mg/dL >40 [facility] Work Phone: Comment on above: The drugs N-Acetylcy steine and Metamizole may falsely depress this assay. Reference Range HDL <40 mg/dL Low HDL Cholesterol HDL >or= 60 mg/dL High HDL Cholesterol Serum or plasma cholesterol in VLDL measurement (mass/volume)on 04-26-2022 Cholesterol in VLDL [Mass/Vol] 10 mg/dL 5-40 [facility] Work Phone: Serum or plasma low density lipoprotein (LDL) cholesterol measurement (mass/volume)on 04-26-2022 Cholesterol in LDL [Mass/Vol] 64 mg/dL 0-130 [facility] Work Phone: Thin prep Papanicolaou smear with manual screeningon 04-26-2022 Thin prep Papanicolaou smear with manual screening 19 U/L 15-37 [facility] Work Phone: Laboratory - Chemistry and C hemistry - challengeon 04-25-2022 Natriuretic peptide B (Bld) [Mass/Vol] 1203.2 pg/mL 0-100 [facility] Work Phone: Laboratory - Hematology and Cell countson 04-25-2022 Anisocytosis Ql (Bld) 2+ [facility] Work Phone: Macrocytes detectionon 04-25 [facility]rocytes Ql (Bld) [facility] Thin prep Papanicolaou smear with manual screeningon 04-25-2022 Thin prep Papanicolaou smear with manual screening 1+ [facility] Work Phone: Glucose Glucometer (BldC) [M ass/Vol]on 04-14-2022 Glucose [Mass/Vol] 109 mg/dL 74-106 [facility] Work Phone: Comment on above: MANAGEMENT OF PATIEN T CARE PER NURSING PROTOCOL No Panel Informationon 04-13 Prostate Specific Antigen Total 0.03 ng/mL 0.0-4.0 [facility] Work Phone: Comment on above: This test was perfor med using the TPSA assay method for [employer] chemistry system. Values obtained with differentassay methods cannot be used interchangably.When changing PSA assays in the course of monitoring apatient, additional sequential testing should be carriedout to confirm baseline values. Glucose Glucometer (BldC) [M ass/Vol]on 04-12-2022 Glucose [Mass/Vol] 209 mg/dL 74-106 [facility] Work Phone: Comment on above: MANAGEMENT OF PATIEN T CARE PER NURSING PROTOCOL Absolute lymphocyte counton 04-11-2022 Lymphocytes Auto (Unsp spec) [#/Vol] 0.27 10*3/uL 0.83-4.51 [facility] Work Phone: Basophil percentageon 2021 Basophils/100 WBC (Bld) 0.4 % 0-1 [facility] Work Phone: Chloride [Moles/Vol] 114 mmol/L 98-107 [facility] Work Phone: Eosinophils/100 WBC (Bld) 4.3 % 0-5 [facility] Work Phone: Glucose [Mass/Vol] 152 mg/dL 74-106 [facility] Work Phone: Comment on above: Fasting Glucose resu lt greater than or equal to 126 mg/dL suggests DIABETES MELLITUS per A.D.A. criteria. Neutrophils (Bld) [#/Vol] 3.8 10*3/uL 2.0-7.7 [facility] Work Phone: Neutrophils/100 WBC (Bld) 81.9 % 47-70 [facility] Work Phone: Potassium [Moles/Vol] 4.0 mmol/L 3.5-5.1 [facility] Work Phone: Sodium [Moles/Vol] 142 mmol/L 136-145 [facility] Work Phone: WBC (Bld) [#/Vol] 4.6 10*3/uL 4.4-11.0 [facility] Work Phone: [phone] Blood erythrocytes count (nu mber/volume)on 04-11-2022 RBC (Bld) [#/Vol] 3.14 10*6/uL 4.6-6.2 [facility] Work Phone: Blood hemoglobin measurement (mass/volume)on 04-11-2022 Hemoglobin (Bld) [Mass/Vol] 9.7 g/dL 13.0-16.5 [facility] Work Phone: Blood lymphocytes/100 leukoc yteson 04-11-2022 Lymphocytes/100 WBC (Bld) 5.8 % 19-41 [facility] Work Phone: Blood monocytes/100 leukocyt eson 04-11-2022 Monocytes/100 WBC (Bld) 6.3 % 0-10 [facility] Work Phone: Blood platelet mean volumeon 04-11-2022 Platelet mean volume (Bld) [Entitic vol] 11.0 fL 6.2-12.0 [facility] Work Phone: Determination of erythrocyte mean corpuscular volume (MCV)on 04-11-2022 MCV (RBC) [Entitic vol] 101.6 fL 80-94 [facility] Work Phone: [phone] Hematocrit Auto (Bld) [Volum e fraction]on 04-11-2022 Hematocrit (Bld) [Volume fraction] 31.9 % 40-54 [facility] Work Phone: Laboratory - Chemistry and C hemistry - challengeon 04-11-2022 CO2 [Moles/Vol] 23.0 mmol/L 21.0-32.0 [facility] Work Phone: [phone] Urea nitrogen/Creatinine [Mass ratio] 24.1 mg/mg 10-20 [facility] Work Phone: [phone] Laboratory - Hematology and Cell countson 04-11-2022 Anisocytosis Ql (Bld) RARE [facility] Work Phone: [phone] Erythrocyte distribution width (RBC) [Entitic vol] 68.3 fL 35.1-43.9 [facility] Work Phone: [phone] Erythrocyte distribution width (RBC) [Ratio] 18.5 % 11.6-14.6 [facility] Work Phone: [phone] Immature granulocytes/100 WBC (Bld) 1.300 % 0.0-0.9 [facility] Work Phone: [phone] Comment on above: IG% - Immature Granu locytes (promyelocytes, myelocytes and metamyelocytes) > 1% indicates that a LEFT SHIFT is Present. MCH (RBC) [Entitic mass] 30.9 pg 27.0-32.0 [facility] Work Phone: [phone] Nucleated RBC/100 WBC (Bld) [Ratio] 0 % 0-5 [facility] Work Phone: [phone] MCHC Auto (RBC) [Mass/Vol]on 04-11-2022 MCHC (RBC) [Mass/Vol] 30.4 g/dL 32-36 [facility] Work Phone: No Panel Informationon 04-11 Estimated Creatinine Clearance Calc 60.10 ml/min [facility] Work Phone: Estimated GFR (MDRD) Amer 80 mL/min >60 [facility] Work Phone: Comment on above: GFR Calc Estimated GFR (MDRD) Non-Af Amer 66 mL/min >60 [facility] Work Phone: Comment on above: Non- GFR Calc Platelets bldon 04-11-2022 Platelets (Bld) [#/Vol] 160 10*3/uL 150-450 [facility] Work Phone: Serum or plasma calcium carol urement (mass/volume)on 04-11-2022 Calcium [Mass/Vol] 8.7 mg/dL 8.5-10.1 [facility] Work Phone: Serum or plasma creatinine m easurement (mass/volume)on 04-11-2022 Creatinine [Mass/Vol] 1.16 mg/dL 0.70-1.30 [facility] Work Phone: Comment on above: The validity of the calculated GFR & GFRAA in patients over 70 years has not been determined. Clinical correlation is essential. Serum or plasma urea nitroge n measurement (mass/volume)on 04-11-2022 Urea nitrogen [Mass/Vol] 28 mg/dL 7-18 [facility] Work Phone: Thin prep Papanicolaou smear with manual screeningon 04-11-2022 Thin prep Papanicolaou smear with manual screening 5 5-15 [facility] Work Phone: Macrocytes detectionon 04-04 [facility] Ql (Bld) [facility] Work Phone: Basophil percentageon 2021 Basophil [facility] 0-5 [facility] Work Phone: Bilirubin Test strip Ql (U)o n 03-31-2022 Bilirubin Ql (U) Negative Negative [facility] Work Phone: Culture, urineon 03-31-2022 Bacteria identified Cx Nom (U) Culture exhibits no growth. [facility] Work Phone: Ketones Test strip Ql (U)on 03-31-2022 Ketones Ql (U) Negative Negative [facility] Work Phone: Mucus LM Ql (Urine sed)on Mucus Ql (Urine sed) 0 SEEN /hpf [facility] Work Phone: Nitrite Test strip Ql (U)on 03-31-2022 Nitrite Ql (U) Negative Negative [facility] Work Phone: Protein Test strip Ql (U)on 03-31-2022 Protein Ql (U) 100 mg/dl Negative [facility] Work Phone: Squamous epithelial cells de tection in urine sediment by light microscopyon 03-31-2022 Epithelial cells.squamous LM Ql (Urine sed) 0 SEEN /hpf 0-5 [facility] Work Phone: Urine blood detectionon 03-08 RBC Ql (U) 25 /ul Negative [facility] Work Phone: RBC Ql (U) 0-5 SEEN /hpf 0-5 [facility] Work Phone: Urine clarityon 03-31-2022 Clarity (U) Clear Clear [facility] Work Phone: Urine color determinationon 03-31-2022 Color (U) Yellow Yellow [facility] Work Phone: Urine glucose detectionon Glucose Ql (U) Normal mg/dl Normal [facility] Work Phone: Urine leukocyte esterase det ection by dipstickon 03-31-2022 Leukocyte esterase Test strip Ql (U) Negative Negative [facility] Work Phone: Urine pHon 03-31-2022 pH (U) 6.0 [pH] 5.0 - 8.0 [facility] Work Phone: Urine sediment bacteria coun t by microscopy (number/high power field)on 03-31-2022 Bacteria LM.HPF (Urine sed) [#/Area] 0 /[HPF] None Seen [facility] Work Phone: Urine specific gravity measu rementon 03-31-2022 Specific gravity (U) [Rel density] 1.015 1.002-1.03 0 [facility] Work Phone: Urobilinogen Auto test strip Ql (U)on 03-31-2022 Urobilinogen Ql (U) Normal mg/dl Normal [facility] Work Phone: Blood manual differential co mment interpretation (narrative result)on 03-28-2022 Manual differential comment Timur (Bld) [Interp] SCANNED [facility] Work Phone: XR HIP RIGHT 2-3 [...] periprosthetic fractures. IMPRESSION: Intact right hip replacement. [employer] Workstation ID: [id number] Dictated by: AMBROSIO DENNEY on TueMarch 23, 2022 3:28:52 PM EDT Transcribed by: WANDER FERRARO on TueMarch 23, 2022 3:57:11 PM EDT Finalized by: AMBROSIO DENNEY on TueMarch 23, 2022 8:40:10 PM EDT Normal [facility] Comment on above: Order Comment: [...] with less than 25% height loss. Osteopenia. [employer] Workstation ID: [id number] Dictated by: AMBROSIO DENNEY on TueMarch 24, 2022 8:14:53 PM EDT Transcribed by: MARILYNN HARDING on TueMarch 24, 2022 8:20:38 PM EDT Finalized by: AMBROSIO DENNEY on TueMarch 25, 2022 7:22:23 PM EDT Normal [facility] Comment on above: Order Comment: Injur y/Trauma or Illness?:Illness/Other How long have you had these symptoms (acute/chronic)?:Acute Reason for exam?:low back pain History of cancer?: Surgeries, chemotherapy, or radiation?: Type of Exam?:Initial Additional signs and symptoms?: Blood band neutrophil count as percentage of total leukocyteson 03-07-2022 Band form neutrophils/100 WBC (Bld) 1 % 0-5 [facility] Work Phone: Blood eosinophils/100 leukoc yteson 03-07-2022 Eosinophils/100 WBC (Bld) 12 % 0-5 [facility] Work Phone: Blood lymphocytes/100 leukoc yteson 03-07-2022 Lymphocytes/100 WBC (Bld) 5 % 19-41 [facility] Work Phone: Blood metamyelocytes/100 jannet kocyteson 03-07-2022 Metamyelocytes/100 WBC (Bld) 1 % 0-1 [facility] Work Phone: Blood monocytes/100 leukocyt eson 03-07-2022 Monocytes/100 WBC (Bld) 6 % 0-10 [facility] Work Phone: [phone] Blood platelet adequacy dete ction by light microscopyon 03-07-2022 Platelets LM Ql (Bld) ADEQUATE ADEQ [facility] Work Phone: [phone] Blood polychromasia detectio n by light microscopyon 03-07-2022 Polychromasia LM Ql (Bld) RARE [facility] Work Phone: [phone] Blood segmented neutrophils/ 100 leukocyteson 03-07-2022 Segmented neutrophils/100 WBC (Bld) 74 % 47-70 [facility] Work Phone: Laboratory - Hematology and Cell countson 03-07-2022 Myelocytes/100 WBC (Bld) 1 % 0-0 [facility] Work Phone: [phone] RBC morphologyon 03-07-2022 RBC morphology finding Nom (Bld) NORM C+C NORMAL NORM C&C [facility] Work Phone: Review by pathologiston 05-0 Pathologist review Timur (Unsp spec) [Interp] Reviewed [facility] Work Phone: Comment on above: Previous reported re sult: Bruna calloway Edited by: LARRY on 03/10/22:1248Neutrophilic left shift.Macrocytic anemia.Nick Cadena M.D. 03/10/22 AMENDED REPORT 03/10/22 1248 PATH REV previously reported as: Bruna call[place]ay Total cell counton 2 Cells counted Molgen (Bld/Tiss) [#] 100 MANUAL DIFF [facility] Work Phone: Urine sediment fine granular cast count by microscopy (number/low power field)on 03-01-2022 Fine Granular Casts LM.LPF (Urine sed) [#/Area] 0-5 SEEN /lpf 0-5 [facility] Work Phone: COVID-19, MOLECULARon 2021 SARS-CoV-2 (COVID-19) RNA ANUJ+probe Ql (Unsp spec) Not detected Normal Not Detected [facility] Comment on above: Order Comment: Injur y/Trauma or Illness?:Illness/Other How long have you had these symptoms (acute/chronic)?:Acute Reason for exam?:right hip fx Type of Exam?:Initial Additional signs and symptoms?:n/a Performed By: #### L [id number] ####[facility] [address] [address] Andrew Rendon M.D. [id number] XR HIP RIGHT 1 VIEWon 2021 XR [...] type, unspecified whether angina present, unspecified whether [place] or transplanted heart I48.91 Atrial fibrillation and [...] ID: [id number] Dictated by: ÁLVARO DAVIS on [facility] Feb 13, 2022 11:48:58 PM EDT Transcribed by: ÁLVARO DAVIS on [facility] Feb 13, 2022 11:48:58 PM EDT Finalized by: ÁLVARO DAVIS on [facility] Feb 13, 2022 11:48:58 PM EDT Normal [facility] Comment on above: Order Comment: [...] type, unspecified whether angina present, unspecified whether [place] or transplanted heart I48.91 Atrial fibrillation and [...] PM EDT Transcribed by: BERNARDA HOLLIS on Dara Feb 11, 2022 3:43:38 PM EDT Finalized by: BERNARDA HOLLIS on TueFeb 11, 2022 3:43:38 PM EDT [facility] Comment on above: Order Comment: Injur [...] Date: 02/11/2022 11:55 AM Patient Status: Inpatient Medical Chemist: Shayne, Ela, TOBIAS Exam Type: ECHOCARDIOGRAM COMPLETE Study Info Indications I50.9 - Heart failure, unspecified Referring Physician: SYSTEM, PROVIDER NOT IN ; [id number] BMI: 24.22 kg/m2 Summary 1. Left ventricular [...] mmHg MV VTI 22 cm MV [place]el [place] 371 cm/s2 MV PHT 61 ms MV Area (PHT) 3.6 cm2 4.0-5.0 MV Area (Cont Eq VTI) 3.4 cm2 MV Area Index (Cont Eq VTI) 1.78 cm2/m2 MV Diastolic Function MV E Peak Velocity 1 m/s MV A Peak Velo (more content not included)... Normal [facility] Absolute lymphocyte counton 02-10-2022 Lymphocytes Auto (Unsp spec) [#/Vol] 0.11 10*3/uL 0.83-4.51 [facility] Work Phone: [phone] Basophil percentageon 2021 Basophil percentage 3.5 mg/dL 2.5-4.9 [facility] Work Phone: Basophils/100 WBC (Bld) 0.1 % 0-1 [facility] Work Phone: [phone] Chloride [Moles/Vol] 111 mmol/L 98-107 [facility] Work Phone: [phone] Eosinophils/100 WBC (Bld) 0.6 % 0-5 [facility] Work Phone: [phone] Glucose [Mass/Vol] 232 mg/dL 74-106 [facility] Work Phone: [phone] Comment on above: Glucose result great er than or equal to 200 mg/dLsuggests DIABETES MELLITUS per A.D.A. criteria. Lactate [Moles/Vol] 0.8 mmol/L 0.4-2.0 [facility] Work Phone: [phone] Neutrophils (Bld) [#/Vol] 6.3 10*3/uL 2.0-7.7 [facility] Work Phone: [phone] Neutrophils/100 WBC (Bld) 93.4 % 47-70 [facility] Work Phone: Potassium [Moles/Vol] 4.0 mmol/L 3.5-5.1 [facility] Work Phone: Sodium [Moles/Vol] 139 mmol/L 136-145 [facility] Work Phone: WBC (Bld) [#/Vol] 6.7 10*3/uL 4.4-11.0 [facility] Work Phone: Blood erythrocytes count (nu mber/volume)on 02-10-2022 RBC (Bld) [#/Vol] 3.58 10*6/uL 4.6-6.2 [facility] Work Phone: Blood hemoglobin measurement (mass/volume)on 02-10-2022 Hemoglobin (Bld) [Mass/Vol] 11.7 g/dL 13.0-16.5 [facility] Work Phone: Blood lymphocytes/100 leukoc yteson 02-10-2022 Lymphocytes/100 WBC (Bld) 1.6 % 19-41 [facility] Work Phone: Blood manual differential co mment interpretation (narrative result)on 02-10-2022 Manual differential comment Timur (Bld) [Interp] COMMENT [facility] Work Phone: Comment on above: LYMPHOPENIA. Blood monocytes/100 leukocyt eson 02-10-2022 Monocytes/100 WBC (Bld) 4.0 % 0-10 [facility] Work Phone: Blood platelet adequacy dete ction by light microscopyon 02-10-2022 Platelets LM Ql (Bld) MOD DEC ADEQ [facility] Work Phone: [phone] Blood platelet mean volumeon 02-10-2022 Platelet mean volume (Bld) [Entitic vol] 10.8 fL 6.2-12.0 [facility] Work Phone: Determination of erythrocyte mean corpuscular volume (MCV)on 02-10-2022 MCV (RBC) [Entitic vol] 95.0 fL 80-94 [facility] Work Phone: [phone] Hematocrit Auto (Bld) [Volum e fraction]on 02-10-2022 Hematocrit (Bld) [Volume fraction] 34.0 % 40-54 [facility] Work Phone: INR in Blood by Coagulation assayon 02-10-2022 INR Coag (Bld) [Relative time] 1.5 {INR} [facility] Work Phone: [phone] Laboratory - Chemistry and C hemistry - challengeon 02-10-2022 CO2 [Moles/Vol] 25.0 mmol/L 21.0-32.0 [facility] Work Phone: Magnesium [Mass/Vol] 2.0 mg/dL 1.6-2.6 [facility] Work Phone: [phone] Urea nitrogen/Creatinine [Mass ratio] 18.8 mg/mg 10-20 [facility] Work Phone: [phone] Laboratory - Coagulationon 0 02-10-2022 aPTT Coag (Bld) [Time] 34.8 s 24.1-36.2 [facility] Work Phone: PT Coag (PPP) [Time] 17.6 s 11.7-14.9 [facility] Work Phone: Laboratory - Hematology and Cell countson 02-10-2022 Erythrocyte distribution width (RBC) [Entitic vol] 48.6 fL 35.1-43.9 [facility] Work Phone: [phone] Erythrocyte distribution width (RBC) [Ratio] 14.3 % 11.6-14.6 [facility] Work Phone: Immature granulocytes/100 WBC (Bld) 0.300 % 0.0-0.9 [facility] Work Phone: [phone] Comment on above: IG% - Immature Granu locytes (promyelocytes, myelocytes and metamyelocytes) > 1% indicates that a LEFT SHIFT is Present. MCH (RBC) [Entitic mass] 32.7 pg 27.0-32.0 [facility] Work Phone: Nucleated RBC/100 WBC (Bld) [Ratio] 0 % 0-5 [facility] Work Phone: Laboratory - Microbiology an d Antimicrobial susceptibilityon 02-10-2022 Bacteria identified Cx Nom (Bld) No growth in 5 days. [facility] Work Phone: MCHC Auto (RBC) [Mass/Vol]on 02-10-2022 MCHC (RBC) [Mass/Vol] 34.4 g/dL 32-36 [facility] Work Phone: No Panel Informationon 02-10 Estimated Creatinine Clearance Calc 50.52 ml/min [facility] Work Phone: Estimated GFR (MDRD) Amer 66 mL/min >60 [facility] Work Phone: Comment on above: GFR Calc Estimated GFR (MDRD) Non-Af Amer 54 mL/min >60 [facility] Work Phone: Comment on above: Non- GFR Calc SARS-CoV-2 & FLU Antigen (Rapid) [facility] Work Phone: Platelets bldon 02-10-2022 Platelets (Bld) [#/Vol] 75 10*3/uL 150-450 [facility] Work Phone: Serum or plasma calcium carol urement (mass/volume)on 02-10-2022 Calcium [Mass/Vol] 9.2 mg/dL 8.5-10.1 [facility] Work Phone: Serum or plasma creatinine m easurement (mass/volume)on 02-10-2022 Creatinine [Mass/Vol] 1.38 mg/dL 0.70-1.30 [facility] Work Phone: Comment on above: The validity of the calculated GFR & GFRAA in patients over 70 years has not been determined. Clinical correlation is essential. Serum or plasma urea nitroge n measurement (mass/volume)on 02-10-2022 Urea nitrogen [Mass/Vol] 26 mg/dL 7-18 [facility] Work Phone: Serum procalcitonin measurem enton 02-10-2022 Procalcitonin [Mass/Vol] 0.30 ng/mL 0.00-0.09 [facility] Work Phone: Comment on above: A [...] Papanicolaou smear with manual screening 3 5-15 [facility] Work Phone: XR CHEST PA/APon 02-10-2022 [...] suggestive of developing pulmonary edema or pneumonitis. ST/tde Workstation ID: [id number] Dictated by: AMBROSIO DENNEY on TueFeb 11, 2022 9:13:18 AM EDT Transcribed by: SIDDHARTH YANG on TueFeb 11, 2022 9:53:14 AM EDT Finalized by: AMBROSIO DENNEY on Dara Feb 11, 2022 7:10:32 PM EDT [facility] Comment on above: Order Comment: Injur [...] Dara Feb 11, 2022 7:17:10 PM EDT [facility] Comment on above: Order Comment: Injur y/Trauma or Illness?:Injury/Trauma How long have you had these symptoms (acute/chronic)?:Acute Reason for exam?:right hip pain History of cancer?: Surgeries, chemotherapy, or radiation?: Type of Exam?:Initial Mechanism of injury?:fall Basophil percentageon 2021 Creatinine [Mass/Vol] 1.0 mg/dL 0.70-1.30 [facility] Work Phone: No Panel Informationon 01-14 Bedside Estimated GFR (eGFR) > 60.0000 mL/min >60 [facility] Work Phone: Glucose Glucometer (BldC) [M ass/Vol]on 01-06-2022 Glucose [Mass/Vol] 192 mg/dL 70-110 [facility] Work Phone: Comment on above: MANAGEMENT OF PATIEN T CARE PER NURSING PROTOCOL No Panel Informationon 01-04 SARS-CoV-2 Antigen (Rapid) [facility] Work Phone: Basophil percentageon 2021 Creatinine [Mass/Vol] 1.4 mg/dL 0.70-1.30 [facility] Work Phone: No Panel Informationon 11-19 Bedside Estimated GFR (eGFR) > 60.0000 mL/min >60 [facility] Work Phone: Culture, urine Bacteria identified Cx Nom (U) Culture exhibits no growth. [facility] Work Phone: Laboratory - Microbiology an d Antimicrobial susceptibility Bacteria identified Cx Nom (Bld) No growth in 5 days. [facility] Work Phone: No Panel Information SARS-CoV-2 & FLU Antigen (Rapid) [facility] Work Phone: SARS-CoV-2 Antigen (Rapid) [facility] Work Phone: Vital Signs Date Time Vital Sign Value Performing Clinician Facility 07-17-2025 11:36-0400 Body height 175.3 cm Lupe Rushing MD Work Phone: [facility] 07-17-2025 11:36-0400 Body mass index (BMI) [Ratio] 25.4 kg/m2 Lupe Rushing MD Work Phone: [facility] 07-17-2025 11:36-0400 Body temperature 97.2 [degF] Lupe Rushing MD Work Phone: [facility] 07-17-2025 11:36-0400 Body weight 78.02 kg Lupe Rushing MD Work Phone: [facility] 07-17-2025 11:36-0400 Diastolic blood pressure 58 mm[Hg] Lupe Rushing MD Work Phone: [facility] 07-17-2025 11:36-0400 Heart rate 66 /min Lupe Rushing MD Work Phone: [facility] 07-17-2025 11:36-0400 SaO2% (BldA) [Mass fraction] 97 % Lupe Rushing MD Work Phone: [facility] 07-17-2025 11:36-0400 Systolic blood pressure 95 mm[Hg] Lupe Rushing MD Work Phone: [facility] 07-17-2025 10:40-0400 Body height 175.3 cm Merlin Loredo MD Work Phone: [facility] 07-17-2025 10:40-0400 Body mass index (BMI) [Ratio] 25.4 kg/m2 Merlin Loredo MD Work Phone: [facility] 07-17-2025 10:40-0400 Body temperature 97.2 [degF] Merlin Loredo MD Work Phone: [facility] 07-17-2025 10:40-0400 Body weight 78.02 kg Merlin Loredo MD Work Phone: [facility] 07-17-2025 10:40-0400 Diastolic blood pressure 57 mm[Hg] Merlin Loredo MD Work Phone: [facility] 07-17-2025 10:40-0400 Heart rate 66 /min Merlin Loredo MD Work Phone: [facility] 07-17-2025 10:40-0400 SaO2% (BldA) [Mass fraction] 97 % Merlin Loredo MD Work Phone: [facility] 07-17-2025 10:40-0400 Systolic blood pressure 96 mm[Hg] Merlin Loredo MD Work Phone: [facility] 07-16-2025 14:56-0400 Body temperature 97.7 [degF] Dr. Manuel Beebe MD Work Phone: 5(644)[phone] [place] [address] 07-16-2025 14:56-0400 Diastolic blood pressure 63 mm[Hg] Dr. Manuel Beebe MD Work Phone: 5(700)393-066576 [place] [address] 07-16-2025 14:56-0400 Heart rate 70 /min Dr. Manuel Beebe MD Work Phone: 2(486)631-068147 [place] [address] 07-16-2025 14:56-0400 Respiratory rate 15 /min Dr. Manuel Beebe MD Work Phone: 3(353)345-029047 [place] [address] 07-16-2025 14:56-0400 SaO2% (BldA) [Mass fraction] 98 % Dr. Manuel Beebe MD Work Phone: 1(150)290-665347 [place] [address] 07-16-2025 14:56-0400 Systolic blood pressure 92 mm[Hg] Dr. Manuel Beebe MD Work Phone: 3(925)568-167547 [place] [address] 06-18-2025 14:05-0400 Body height 175.[address] Manuel Beebe MD Work Phone: 4(052)844-885247 [place] [address] 06-18-2025 14:05-0400 Diastolic blood pressure 75 mm[Hg] Dr. Manuel Beebe MD Work Phone: 7(132)254-379447 [place] [address] 06-18-2025 14:05-0400 Heart rate 68 /min Dr. Manuel Beebe MD Work Phone: 2(949)427-629047 [place] [address] 06-18-2025 14:05-0400 Respiratory rate 16 /min Dr. Manuel Beebe MD Work Phone: 7(847)282-033376 [place] [address] 06-18-2025 14:05-0400 Systolic blood pressure 113 mm[Hg] Dr. Manuel Beebe MD Work Phone: 4(776)386-646376 [place] [address] 05-29-2025 14:05-0400 Body temperature 98.49 [degF] Injection Wstr Work Phone: [facility] 05-29-2025 14:05-0400 Diastolic blood pressure 63 mm[Hg] Injection Wstr Work Phone: [facility] 05-29-2025 14:05-0400 Heart rate 72 /min Injection Wstr Work Phone: [facility] 05-29-2025 14:05-0400 Respiratory rate 12 /min Injection Wstr Work Phone: [facility] 05-29-2025 14:05-0400 SaO2% (BldA) [Mass fraction] 96 % Injection Wstr Work Phone: [facility] 05-29-2025 14:05-0400 Systolic blood pressure 101 mm[Hg] Injection Wstr Work Phone: [facility] 05-16-2025 14:49-0400 Body height 175.3 cm El Arnett MD Work Phone: [facility] 05-16-2025 14:49-0400 Body mass index (BMI) [Ratio] 25.43 kg/m2 El Arnett MD Work Phone: [facility] 05-16-2025 14:49-0400 Body temperature 97.5 [degF] El Arnett MD Work Phone: [facility] 05-16-2025 14:49-0400 Body weight 78.11 kg El Arnett MD Work Phone: [facility] 05-16-2025 14:49-0400 Diastolic blood pressure 64 mm[Hg] El Arnett MD Work Phone: [facility] 05-16-2025 14:49-0400 Heart rate 70 /min El Arnett MD Work Phone: [facility] 05-16-2025 14:49-0400 Systolic blood pressure 113 mm[Hg] El Arnett MD Work Phone: [facility] 03-06-2025 10:22-0400 Body temperature 97.5 [degF] Jonnathan Kothari DO Work Phone: [facility] 03-06-2025 10:22-0400 Diastolic blood pressure 52 mm[Hg] Jonnathan Kothari DO Work Phone: [facility] 03-06-2025 10:22-0400 Heart rate 57 /min Jonnathan Kothari DO Work Phone: [facility] 03-06-2025 10:22-0400 SaO2% (BldA) [Mass fraction] 98 % Jonnathan Kothari DO Work Phone: [facility] 03-06-2025 10:22-0400 Systolic blood pressure 98 mm[Hg] Jonnathan Kothari DO Work Phone: [facility] 02-13-2025 [id number] Body height 175.3 cm Merlin Loredo MD Work Phone: [facility] 02-13-2025 15:04040 Body mass index (BMI) [Ratio] 26.29 kg/m2 Merlin Loredo MD Work Phone: [facility] 02-13-2025 15:04040 Body temperature 97.59 [degF] Merlin Loredo MD Work Phone: [facility] 02-13-2025 15:04040 Body weight 80.74 kg Merlin Loredo MD Work Phone: [facility] 02-13-2025 15:04-0400 Diastolic blood pressure 42 mm[Hg] Merlin Loredo MD Work Phone: [facility] Comment on above: Pt denies h/a, nausea, dizziness. WNL pe r patient. No distress noted. notified. 02-13-2025 15:04040 Heart rate 40 /min Merlin Loredo MD Work Phone: [facility] Comment on above: Pt denies h/a, nausea, dizziness. WNL pe r patient. No distress noted. Dr rodriguez. 02-13-2025 15:04040 SaO2% (BldA) [Mass fraction] 95 % Merlin Loredo MD Work Phone: [facility] 02-13-2025 15:04-0400 Systolic blood pressure 96 mm[Hg] Merlin Loredo MD Work Phone: [facility] Comment on above: Pt denies h/a, nausea, dizziness. WNL pe r patient. No distress noted. Dr rodriguez. 01-24-2025 08:20-0400 Body temperature 98 [degF] Dr. Manuel Beebe MD Work Phone: [facility] 01-24-2025 08:20-0400 Diastolic blood pressure 68 mm[Hg] Dr. Manuel Beebe MD Work Phone: [facility] 01-24-2025 08:20-0400 Heart rate 70 /min Dr. Manuel Beebe MD Work Phone: 0(092)737-966176 [place] [address] 01-24-2025 08:20-0400 Respiratory rate 15 /min Dr. Manuel Beebe MD Work Phone: 7(078)310-935476 [place] [address] 01-24-2025 08:20-0400 SaO2% (BldA) [Mass fraction] 97 % Dr. Manuel Beebe MD Work Phone: [facility] 01-24-2025 08:20-0400 Systolic blood pressure 110 mm[Hg] Dr. Mnauel Beebe MD Work Phone: [facility] 12-12-2024 15:18-0500 Diastolic blood pressure 69 mm[Hg] Injection Wstr Work Phone: [facility] 12-12-2024 15:18-0500 Heart rate 66 /min Injection Wstr Work Phone: [facility] 12-12-2024 15:18-0500 Respiratory rate 12 /min Injection Wstr Work Phone: [facility] 12-12-2024 15:18-0500 SaO2% (BldA) [Mass fraction] 96 % Injection Wstr Work Phone: [facility] 12-12-2024 15:18-0500 Systolic blood pressure 103 mm[Hg] Injection Wstr Work Phone: [facility] 12-12-2024 11:11-0500 Body height 175.[address] Manuel Beebe MD Work Phone: [facility] 12-12-2024 11:11-0500 Body mass index (BMI) [Ratio] 24.5 kg/m2 Dr. Manuel Beebe MD Work Phone: [facility] 12-12-2024 11:11-0500 Body weight 75.[address] Manuel Beebe MD Work Phone: 0(120)417-698476 [place] [address] 12-12-2024 11:11-0500 Diastolic blood pressure 66 mm[Hg] Dr. Manuel Beebe MD Work Phone: 9(187)843-324047 [place] [address] 12-12-2024 11:11-0500 Heart rate 69 /min Dr. Manuel Beebe MD Work Phone: 9(221)862-396376 [place] [address] 12-12-2024 11:11-0500 Respiratory rate 18 /min Dr. Manuel Beebe MD Work Phone: 0(930)161-599976 [place] [address] 12-12-2024 11:11-0500 SaO2% (BldA) [Mass fraction] 98 % Dr. Manuel Beebe MD Work Phone: [facility] 12-12-2024 11:11-0500 Systolic blood pressure 119 mm[Hg] Dr. Manuel Beebe MD Work Phone: [facility] 09-19-2024 15:17-0500 Diastolic blood pressure 58 mm[Hg] Injection Wstr Work Phone: [facility] 09-19-2024 15:17-0500 Heart rate 72 /min Injection Wstr Work Phone: [facility] 09-19-2024 15:17-0500 Respiratory rate 12 /min Injection Wstr Work Phone: [facility] 09-19-2024 15:17-0500 SaO2% (BldA) [Mass fraction] 100 % Injection [facility]str Work Phone: [facility] 09-19-2024 15:17-0500 Systolic blood pressure 100 mm[Hg] Injection Wstr Work Phone: [facility] 09-05-2024 11:10-0400 Body temperature 97.3 [degF] Lissy Anna Work Phone: [facility] 09-05-2024 11:10-0400 Diastolic blood pressure 67 mm[Hg] Lissy Anna Work Phone: [facility] 09-05-2024 11:10-0400 Heart rate 64 /min Lissy Anna Work Phone: [facility] 09-05-2024 11:10-0400 SaO2% (BldA) [Mass fraction] 96 % Lissy Anna Work Phone: [facility] 09-05-2024 11:10-0400 Systolic blood pressure 91 mm[Hg] Lissy Anna Work Phone: [facility] 08-28-2024 14:43-0400 Body height 175.3 cm Merlin Loredo MD Work Phone: [facility] 08-28-2024 14:43-0400 Body mass index (BMI) [Ratio] 25.4 kg/m2 Merlin Loredo MD Work Phone: [facility] 08-28-2024 14:43-0400 Body temperature 97.7 [degF] Merlin Loredo MD Work Phone: [facility] 08-28-2024 14:43-0400 Body weight 78.02 kg Merlin Loredo MD Work Phone: [facility] 08-28-2024 14:43-0400 Diastolic blood pressure 57 mm[Hg] Merlin Loredo MD Work Phone: [facility] Comment on above: Pt denies h/a, nausea, dizziness. WNL pe r pt. No distress noted. notified. 08-28-2024 14:43-0400 Heart rate 69 /min Merlin Loredo MD Work Phone: [facility] 08-28-2024 14:43-0400 SaO2% (BldA) [Mass fraction] 98 % Merlin Loredo MD Work Phone: [facility] 08-28-2024 14:43-0400 Systolic blood pressure 107 mm[Hg] Merlin Loredo MD Work Phone: [facility] Comment on above: Pt denies h/a, nausea, dizziness. WNL pe r pt. No distress noted. Dr notified. 08-22-2024 11:30-0400 Diastolic blood pressure 68 mm[Hg] Alfred Ramsey MD Work Phone: [facility] 08-22-2024 11:30-0400 Heart rate 66 /min Alfred Ramsey MD Work Phone: [facility] 08-22-2024 11:30-0400 SaO2% (BldA) [Mass fraction] 100 % Alfred Ramsey MD Work Phone: [facility] 08-22-2024 11:30-0400 Systolic blood pressure 128 mm[Hg] Alfred Ramsey MD Work Phone: [facility] 08-22-2024 11:20-0400 Respiratory rate 18 /min Alfred Ramsey MD Work Phone: [facility] 08-22-2024 10:30-0400 Body temperature 97.5 [degF] Alfred Ramsey MD Work Phone: [facility] 08-22-2024 09:54-0400 Body height 175.3 cm Alfred Ramsey MD Work Phone: [facility] 08-22-2024 09:54-0400 Body mass index (BMI) [Ratio] 25.4 kg/m2 Alfred Ramsey MD Work Phone: [facility] 08-22-2024 09:54-0400 Body weight 78.02 kg Alfred Ramsey MD Work Phone: [facility] 06-20-2024 11:02-0400 Diastolic blood pressure 59 mm[Hg] Injection Wstr Work Phone: [facility] 06-20-2024 11:02-0400 Heart rate 70 /min Injection Wstr Work Phone: [facility] 06-20-2024 11:02-0400 Respiratory rate 12 /min Injection Wstr Work Phone: [facility] 06-20-2024 11:02-0400 SaO2% (BldA) [Mass fraction] 99 % Injection Wstr Work Phone: [facility] 06-20-2024 11:02-0400 Systolic blood pressure 90 mm[Hg] Injection Wstr Work Phone: [facility] 06-13-2024 14:18-0400 Body height 177.8 cm Maximo Watkins MD Work Phone: [facility] 06-13-2024 14:18-0400 Body mass index (BMI) [Ratio] 25.11 kg/m2 Maximo Watkins MD Work Phone: [facility] 06-13-2024 14:18-0400 Body weight 79.38 kg Maximo Watkins MD Work Phone: [facility] 2024 09:08-0400 Body temperature 97.3 [degF] Injection Wstr Work Phone: [facility] 2024 09:08-0400 Diastolic blood pressure 75 mm[Hg] Injection Wstr Work Phone: [facility] 2024 09:08-0400 Heart rate 70 /min Injection Wstr Work Phone: [facility] 2024 09:08-0400 SaO2% (BldA) [Mass fraction] 99 % Injection Wstr Work Phone: [facility] 2024 09:08-0400 Systolic blood pressure 114 mm[Hg] Injection Wstr Work Phone: [facility] 05-01-2024 16:08-0400 Body height 175.3 cm Kourtney Bhatia MD Work Phone: [facility] Comment on above: self-reported 05-01-2024 16:08-0400 Body mass index (BMI) [Ratio] 25.84 kg/m2 Kourtney Bhatia MD Work Phone: [facility] 05-01-2024 16:08-0400 Body weight 79.38 kg Kourtney Bhatia MD Work Phone: [facility] Comment on above: self-reported 05-01-2024 16:08-0400 Diastolic blood pressure 62 mm[Hg] Kourtney Bhatia MD Work Phone: [facility] 05-01-2024 16:08-0400 Heart rate 69 /min Kourtney Bhatia MD Work Phone: [facility] 05-01-2024 16:08-0400 Respiratory rate 20 /min Kourtney Bhatia MD Work Phone: [facility] 05-01-2024 16:08-0400 SaO2% (BldA) [Mass fraction] 98 % Kourtney Bhatia MD Work Phone: [facility] 05-01-2024 16:08-0400 Systolic blood pressure 104 mm[Hg] Kourtney Bhatia MD Work Phone: [facility] 03-21-2024 11:24-0400 Body mass index (BMI) [Ratio] 25.84 kg/m2 Jonnathan Kothari DO Work Phone: [facility] 03-21-2024 11:24-0400 Body temperature 97.11 [degF] Jonnathan Kothari DO Work Phone: [facility] 03-21-2024 11:24-0400 Body weight 79.38 kg Jonnathan Kothari DO Work Phone: [facility] 03-21-2024 11:24-0400 Diastolic blood pressure 57 mm[Hg] Jonnathan Kothari DO Work Phone: [facility] 03-21-2024 11:24-0400 Heart rate 65 /min Jonnathan Kothari DO Work Phone: [facility] 03-21-2024 11:24-0400 SaO2% (BldA) [Mass fraction] 96 % Jonnathan Kothari DO Work Phone: [facility] 03-21-2024 11:24-0400 Systolic blood pressure 89 mm[Hg] Jonnathan Kothari DO Work Phone: [facility] 03-14-2024 11:32-0400 Body height 175.3 cm Merlin Loredo MD Work Phone: [facility] 03-14-2024 11:32-0400 Body mass index (BMI) [Ratio] 25.84 kg/m2 Merlin Loredo MD Work Phone: [facility] 03-14-2024 11:32-0400 Body temperature 98.8 [degF] Merlin Loredo MD Work Phone: [facility] 03-14-2024 11:32-0400 Body weight 79.38 kg Merlin Loredo MD Work Phone: [facility] 03-14-2024 11:32-0400 Diastolic blood pressure 53 mm[Hg] Merlin Loredo MD Work Phone: [facility] Comment on above: Pt denies h/a, nausea, dizziness. WNL pe r pt. No distress noted. notified. 03-14-2024 11:32-0400 Heart rate 70 /min Merlin Loredo MD Work Phone: [facility] 03-14-2024 11:32-0400 SaO2% (BldA) [Mass fraction] 100 % Merlin Loredo MD Work Phone: [facility] 03-14-2024 11:32-0400 Systolic blood pressure 93 mm[Hg] Merlin Loredo MD Work Phone: [facility] Comment on above: Pt denies h/a, nausea, dizziness. WNL pe r pt. No distress noted. notified. 12-21-2023 14:52-0500 Body temperature 97.9 [degF] Injection Wstr Work Phone: [facility] 12-21-2023 14:52-0500 Diastolic blood pressure 62 mm[Hg] Injection Wstr Work Phone: [facility] 12-21-2023 14:52-0500 Heart rate 68 /min Injection Wstr Work Phone: [facility] 12-21-2023 14:52-0500 Respiratory rate 12 /min Injection Wstr Work Phone: [facility] 12-21-2023 14:52-0500 SaO2% (BldA) [Mass fraction] 97 % Injection Wstr Work Phone: [facility] 12-21-2023 14:52-0500 Systolic blood pressure 82 mm[Hg] Injection Wstr Work Phone: [facility] 10-13-2023 10:46-0500 Body height 175.[address] Manuel Beebe Work Phone: 1(532)422-840376 [place] [address] 10-13-2023 10:46-0500 Body mass index (BMI) [Ratio] 26.6 kg/m2 Dr. Manuel Beebe Work Phone: 8(835)000-838847 [place] [address] 10-13-2023 10:46-0500 Body temperature 98.4 [degF] Dr. Manuel Beebe Work Phone: 9(795)512-323647 [place] [address] 10-13-2023 10:46-0500 Body weight 81.[address] Manuel Beebe Work Phone: 9(937)130-544576 [place] [address] 10-13-2023 10:46-0500 Diastolic blood pressure 68 mm[Hg] Dr. Manuel Beebe Work Phone: 3(144)952-679847 [place] [address] 10-13-2023 10:46-0500 Heart rate 70 /min Dr. Manuel Beebe Work Phone: 8(354)837-076476 [place] [address] 10-13-2023 10:46-0500 Respiratory rate 17 /min Dr. Manuel Beebe Work Phone: 4(932)946-804176 [place] [address] 10-13-2023 10:46-0500 SaO2% (BldA) [Mass fraction] 96 % Dr. Manuel Beebe Work Phone: 4(783)847-638147 [place] [address] 10-13-2023 10:46-0500 Systolic blood pressure 106 mm[Hg] Dr. Manuel Beebe Work Phone: 6(664)093-543547 [place] [address] 10-06-2023 15:55-0500 Body mass index (BMI) [Ratio] 27.1 kg/m2 Dr. Manuel Beebe Work Phone: 6(858)999-026847 [address] [place], [place] [address] 10-06-2023 15:55-0500 Body weight 83.[address] Manuel Beebe Work Phone: 3(954)156-123447 [place] [address] 10-06-2023 15:55-0500 Diastolic blood pressure 65 mm[Hg] Dr. Manuel Beebe Work Phone: 1(440)102-816047 [place] [address] 10-06-2023 15:55-0500 Heart rate 70 /min Dr. Manuel Beebe Work Phone: 6(034)936-384647 [place] [address] 10-06-2023 15:55-0500 Respiratory rate 16 /min Dr. Manuel Beebe Work Phone: 2(932)434-706347 [place] [address] 10-06-2023 15:55-0500 Systolic blood pressure 102 mm[Hg] Dr. Manuel Beebe Work Phone: 8(615)311-169747 [place] [address] 07-12-2023 14:15-0400 Body height 175.[address] Manuel Beebe Work Phone: 0(924)480-514047 [place] [address] 07-12-2023 14:15-0400 Body mass index (BMI) [Ratio] 25.4 kg/m2 Dr. Manuel Beebe Work Phone: 3(647)551-777447 [place] [address] 07-12-2023 14:15-0400 Body temperature 98.1 [degF] Dr. Manuel Beebe Work Phone: 6(854)691-322247 [place] [address] 07-12-2023 14:15-0400 Body weight 78.[address] Manuel Beebe Work Phone: 3(818)668-149076 [place] [address] 07-12-2023 14:15-0400 Diastolic blood pressure 75 mm[Hg] Dr. Manuel Beebe Work Phone: 8(591)033-095347 [place] [address] 07-12-2023 14:15-0400 Heart rate 67 /min Dr. Manuel Beebe Work Phone: 3(153)942-181647 [place] [address] 07-12-2023 14:15-0400 Respiratory rate 18 /min Dr. Manuel Beebe Work Phone: 9(189)547-525847 [place] [address] 07-12-2023 14:15-0400 SaO2% (BldA) [Mass fraction] 92 % Dr. Manuel Beebe Work Phone: 0(540)440-398447 [place] [address] 07-12-2023 14:15-0400 Systolic blood pressure 112 mm[Hg] Dr. Manuel Beebe Work Phone: 6(634)238-733547 [place] [address] 06-26-2023 08:10-0400 Body temperature 96.8 [degF] Dr. Manuel Beebe Work Phone: 6(539)167-982347 [place] [address] 06-26-2023 08:10-0400 Diastolic blood pressure 81 mm[Hg] Dr. Manuel Beebe Work Phone: 6(523)653-649447 [place] [address] 06-26-2023 08:10-0400 Heart rate 69 /min Dr. Manuel Beebe Work Phone: 7(013)224-913247 [place] [address] 06-26-2023 08:10-0400 Respiratory rate 16 /min Dr. Manuel Beebe Work Phone: 0(679)843-089847 [place] [address] 06-26-2023 08:10-0400 SaO2% (BldA) [Mass fraction] 98 % Dr. Manuel Beebe Work Phone: 2(075)161-245747 [place] [address] 06-26-2023 08:10-0400 Systolic blood pressure 127 mm[Hg] Dr. Manuel Beebe Work Phone: 2(314)212-578747 [place] [address] 06-24-2023 14:17-0400 Body height 175.[address] Manuel Beebe Work Phone: 0(026)919-918347 [place] [address] 06-24-2023 14:17-0400 Body weight [address] Manuel Beebe Work Phone: 1(496)119-404047 [place] [address] 06-22-2023 02:50-0400 Inhaled oxygen flow rate 3 L/min Dr. Manuel Beebe Work Phone: 5(868)720-572147 [place] [address] 06-21-2023 17:53-0400 Body mass index (BMI) [Ratio] 25 kg/m2 Dr. Manuel Beebe Work Phone: 3(484)552-379247 [place] [address] 06-21-2023 17:20-0400 Heart rate 70 /min Dr. Manuel Beebe Work Phone: 8(751)181-868847 [place] [address] 06-21-2023 17:20-0400 Respiratory rate 20 /min Dr. Manuel Beebe Work Phone: 4(222)074-443547 [place] [address] 06-21-2023 17:19-0400 Body temperature 98.4 [degF] Dr. Manuel Beebe Work Phone: 0(917)527-936147 [place] [address] 06-21-2023 17:19-0400 Diastolic blood pressure 64 mm[Hg] Dr. Manuel Beebe Work Phone: 3(000)287-545947 [place] [address] 06-21-2023 17:19-0400 SaO2% (BldA) [Mass fraction] 96 % Dr. Manuel Beebe Work Phone: 6(190)494-284347 [place] [address] 06-21-2023 17:19-0400 Systolic blood pressure 103 mm[Hg] Dr. Manuel Beebe Work Phone: 7(878)046-232247 [place] [address] 06-21-2023 12:22-0400 Body height 175.[address] Manuel Beebe Work Phone: 9(281)794-176147 [place] [address] 06-21-2023 12:22-0400 Body mass index (BMI) [Ratio] 26.3 kg/m2 Dr. Manuel Beebe Work Phone: 8(598)184-430847 [place] [address] 06-21-2023 12:22-0400 Body weight 80.[address] Manuel Beebe Work Phone: 1(760)429-020147 [place] [address] 2023 14:25-0400 Body mass index (BMI) [Ratio] 26.4 kg/m2 Dr. Manuel Beebe Work Phone: 1(045)921-897847 [place] [address] 2023 14:25-0400 Body weight 81.[address] Manuel Beebe Work Phone: 0(316)876-563147 [place] [address] 2023 14:25-0400 Diastolic blood pressure 62 mm[Hg] Dr. Manuel Beebe Work Phone: 9(066)557-480447 [place] [address] 2023 14:25-0400 Heart rate 96 /min Dr. Manuel Beebe Work Phone: 2(850)526-057947 [place] [address] 2023 14:25-0400 Respiratory rate 18 /min Dr. Manuel Beebe Work Phone: 0(811)280-976047 [place] [address] 2023 14:25-0400 Systolic blood pressure 103 mm[Hg] Dr. Manuel Beebe Work Phone: 4(770)542-379647 [place] [address] 04-25-2023 12:31-0400 Body temperature 97.7 [degF] Dr. Manuel Beebe Work Phone: 4(072)513-913147 [place] [address] 04-25-2023 12:31-0400 Diastolic blood pressure 82 mm[Hg] Dr. Manuel Beebe Work Phone: 0(647)712-762647 [place] [address] 04-25-2023 12:31-0400 Heart rate 70 /min Dr. Manuel Beebe Work Phone: 0(551)452-172947 [place] [address] 04-25-2023 12:31-0400 Respiratory rate 18 /min Dr. Manuel Beebe Work Phone: 6(893)236-012947 [place] [address] 04-25-2023 12:31-0400 SaO2% (BldA) [Mass fraction] 95 % Dr. Manuel Beebe Work Phone: 4(216)524-185947 [place] [address] 04-25-2023 12:31-0400 Systolic blood pressure 135 mm[Hg] Dr. Manuel Beebe Work Phone: 1(402)054-417876 [place] [address] 04-24-2023 12:48-0400 Body height 175.[address] Manuel Beebe Work Phone: 6(957)531-560347 [place] [address] 04-24-2023 12:48-0400 Body weight 87.[address] Manuel Beebe Work Phone: 8(790)543-794547 [place] [address] 04-24-2023 09:00-0400 Inhaled oxygen flow rate 2 L/min Dr. Manuel Beebe Work Phone: 3(531)171-792047 [place] [address] 04-23-2023 15:00-0400 Body mass index (BMI) [Ratio] 28.3 kg/m2 Dr. Manuel Beebe Work Phone: 9(262)534-363347 [place] [address] 04-23-2023 14:15-0400 Body temperature 98.4 [degF] Dr. Manuel Beebe Work Phone: 7(282)712-869547 [place] [address] 04-23-2023 14:15-0400 Diastolic blood pressure 75 mm[Hg] Dr. Manuel Beebe Work Phone: 7(906)777-581247 [place] [address] 04-23-2023 14:15-0400 Heart rate 82 /min Dr. Manuel Beebe Work Phone: 2(296)538-595447 [place] [address] 04-23-2023 14:15-0400 Inhaled oxygen flow rate 2 L/min Dr. Manuel Beebe Work Phone: 4(792)610-132347 [place] [address] 04-23-2023 14:15-0400 Respiratory rate 20 /min Dr. Manuel Beebe Work Phone: 0(695)979-892147 [place] [address] 04-23-2023 14:15-0400 SaO2% (BldA) [Mass fraction] 100 % Dr. Manuel Beebe Work Phone: 7(508)174-245847 [place] [address] 04-23-2023 14:15-0400 Systolic blood pressure 146 mm[Hg] Dr. Manuel Beebe Work Phone: 7(959)351-533447 [place] [address] 04-23-2023 10:09-0400 Body height 175.[address] Manuel Beebe Work Phone: 1(872)640-645347 [place] [address] 04-23-2023 10:09-0400 Body mass index (BMI) [Ratio] 25.4 kg/m2 Dr. Manuel Beebe Work Phone: 8(985)489-230247 [place] [address] 04-23-2023 10:09-0400 Body weight [address] Manuel Beebe Work Phone: 6(278)620-039447 [place] [address] 04-16-2023 13:46-0400 Body temperature 97.8 [degF] Dr. Manuel Beebe Work Phone: 8(370)971-535347 [place] [address] 04-16-2023 13:46-0400 Diastolic blood pressure 73 mm[Hg] Dr. Manuel Beebe Work Phone: 8(642)345-001647 [place] [address] 04-16-2023 13:46-0400 Heart rate 70 /min Dr. Manuel Beebe Work Phone: 2(661)156-361447 [place] [address] 04-16-2023 13:46-0400 Respiratory rate 18 /min Dr. Manuel Beebe Work Phone: 7(150)754-531547 [place] [address] 04-16-2023 13:46-0400 SaO2% (BldA) [Mass fraction] 100 % Dr. Manuel Beebe Work Phone: 1(549)022-335047 [place] [address] 04-16-2023 13:46-0400 Systolic blood pressure 122 mm[Hg] Dr. Manuel Beebe Work Phone: 0(014)933-698076 [place] [address] 04-16-2023 02:11-0400 Body mass index (BMI) [Ratio] 27.9 kg/m2 Dr. Manuel Beebe Work Phone: 3(017)554-475776 [place] [address] 04-16-2023 02:11-0400 Body weight 85.[address] Manuel Beebe Work Phone: 5(913)898-418947 [place] [address] 04-13-2023 18:13-0400 Body temperature 96.8 [degF] Dr. Manuel Beebe Work Phone: 8(117)041-431647 [place] [address] 04-13-2023 18:13-0400 Diastolic blood pressure 93 mm[Hg] Dr. Manuel Beebe Work Phone: 7(589)826-797276 [place] [address] 04-13-2023 18:13-0400 Heart rate 73 /min Dr. Manuel Beebe Work Phone: 4(995)537-798076 [place] [address] 04-13-2023 18:13-0400 Respiratory rate 16 /min Dr. Manuel Beebe Work Phone: 7(798)927-062947 [place] [address] 04-13-2023 18:13-0400 SaO2% (BldA) [Mass fraction] 98 % Dr. Manuel Beebe Work Phone: 9(776)332-817747 [place] [address] 04-13-2023 18:13-0400 Systolic blood pressure 124 mm[Hg] Dr. Manuel Beebe Work Phone: 1(653)766-725947 [place] [address] 04-13-2023 14:09-0400 Body height 175.[address] Manuel Beebe Work Phone: 8(307)681-668247 [place] [address] 04-13-2023 14:09-0400 Body mass index (BMI) [Ratio] 27.2 kg/m2 Dr. Manuel Beebe Work Phone: 4(984)529-728847 [place] [address] 04-13-2023 14:09-0400 Body weight 83.[address] Manuel Beebe Work Phone: 0(721)153-102776 [place] [address] 04-12-2023 14:21-0400 Diastolic blood pressure 57 mm[Hg] Olga Cavazos [employer] Work Phone: [facility] 04-12-2023 14:21-0400 Systolic blood pressure 83 mm[Hg] Olga Cavazos [employer] Work Phone: [facility] 04-12-2023 14:10-0400 Body weight 73.48 kg Olga Cavazos [employer] Work Phone: [facility] 04-12-2023 14:10-0400 Heart rate 70 /min Olga Cavazos [employer] Work Phone: [facility] 04-12-2023 14:10-0400 Respiratory rate 14 /min Olga Cavazos [employer] Work Phone: [facility] 04-12-2023 14:10-0400 SaO2% (BldA) [Mass fraction] 99 % Olga Senas [employer] Work Phone: [facility] 04-12-2023 07:31-0400 Body temperature 97.8 [degF] Dr. Manuel Beebe Work Phone: [facility] 04-12-2023 07:31-0400 Diastolic blood pressure 92 mm[Hg] Dr. Manuel Beebe Work Phone: [facility] 04-12-2023 07:31-0400 Heart rate 70 /min Dr. Manuel Beebe Work Phone: [facility] 04-12-2023 07:31-0400 Respiratory rate 16 /min Dr. Manuel Beebe Work Phone: [facility] 04-12-2023 07:31-0400 SaO2% (BldA) [Mass fraction] 100 % Dr. Manuel Beebe Work Phone: [facility] 04-12-2023 07:31-0400 Systolic blood pressure 126 mm[Hg] Dr. Manuel Beebe Work Phone: [facility] 04-12-2023 04:26-0400 Body mass index (BMI) [Ratio] 26.2 kg/m2 Dr. Manuel Beebe Work Phone: [facility] 04-12-2023 04:26-0400 Body weight 80.[address] Manuel Beebe Work Phone: [facility] 04-10-2023 18:32-0400 Body height 175.[address] Manuel Beebe Work Phone: [facility] 04-10-2023 16:35-0400 Body temperature 97.6 [degF] Dr. Manuel Beebe Work Phone: [facility] 04-10-2023 16:35-0400 Diastolic blood pressure 75 mm[Hg] Dr. Manuel Beebe Work Phone: [facility] 04-10-2023 16:35-0400 Heart rate 76 /min Dr. Manuel Beebe Work Phone: [facility] 04-10-2023 16:35-0400 Respiratory rate 24 /min Dr. Manuel Beebe Work Phone: [facility] 04-10-2023 16:35-0400 SaO2% (BldA) [Mass fraction] 98 % Dr. Manuel Beebe Work Phone: [facility] 04-10-2023 16:35-0400 Systolic blood pressure 136 mm[Hg] Dr. Manuel Beebe Work Phone: 5(105)250-372076 [place] [address] 04-10-2023 12:46-0400 Body height 175.[address] Manuel Beebe Work Phone: [facility] 04-10-2023 12:46-0400 Body mass index (BMI) [Ratio] 28.6 kg/m2 Dr. Manuel Beebe Work Phone: [facility] 04-10-2023 12:46-0400 Body weight 87.[address] Manuel Beebe Work Phone: [facility] 03-23-2023 08:11-0400 Body temperature 97.7 [degF] Manuel Beebe MD Work Phone: [facility] 03-23-2023 08:11-0400 Body weight 78.47 kg Manuel Beebe MD Work Phone: [facility] 03-23-2023 08:11-0400 Diastolic blood pressure 72 mm[Hg] Manuel Beebe MD Work Phone: [facility] 03-23-2023 08:11-0400 Heart rate 65 /min Manuel Beebe MD Work Phone: [facility] 03-23-2023 08:11-0400 Respiratory rate 18 /min Manuel Bebee MD Work Phone: [facility] 03-23-2023 08:11-0400 SaO2% (BldA) [Mass fraction] 97 % Manuel Beebe MD Work Phone: [facility] 03-23-2023 08:11-0400 Systolic blood pressure 118 mm[Hg] Manuel Beebe MD Work Phone: [facility] 03-09-2023 11:48-0400 Body height 177.8 cm Merlin Loredo MD Work Phone: [facility] 03-09-2023 11:48-0400 Body temperature 97 [degF] Merlin Loredo MD Work Phone: [facility] 03-09-2023 11:48-0400 Body weight 78.02 kg Merlin Loredo MD Work Phone: [facility] 03-09-2023 11:48-0400 Diastolic blood pressure 48 mm[Hg] Merlin Loredo MD Work Phone: [facility] 03-09-2023 11:48-0400 Heart rate 70 /min Merlin Loredo MD Work Phone: [facility] 03-09-2023 11:48-0400 SaO2% (BldA) [Mass fraction] 98 % Merlin Loredo MD Work Phone: [facility] 03-09-2023 11:48-0400 Systolic blood pressure 119 mm[Hg] Merlin Loredo MD Work Phone: [facility] 01-06-2023 13:45-0500 Body height 175.[address] Manuel Beebe Work Phone: [facility] 01-06-2023 13:45-0500 Body mass index (BMI) [Ratio] 25.2 kg/m2 Dr. Manuel Beebe Work Phone: [facility] 01-06-2023 13:45-0500 Body temperature 97.1 [degF] Dr. Manuel Beebe Work Phone: 4(301)161-270076 [place] [address] 01-06-2023 13:45-0500 Body weight 77.[address] Manuel Beebe Work Phone: 8(769)209-171747 [place] [address] 01-06-2023 13:45-0500 Diastolic blood pressure 70 mm[Hg] Dr. Manuel Beebe Work Phone: 6(216)960-899547 [place] [address] 01-06-2023 13:45-0500 Heart rate 70 /min Dr. Manuel Beebe Work Phone: 9(749)195-614647 [place] [address] 01-06-2023 13:45-0500 Respiratory rate 16 /min Dr. Manuel Beebe Work Phone: 5(577)229-159747 [place] [address] 01-06-2023 13:45-0500 SaO2% (BldA) [Mass fraction] 93 % Dr. Manuel Beebe Work Phone: 1(673)194-184847 [place] [address] 01-06-2023 13:45-0500 Systolic blood pressure 105 mm[Hg] Dr. Manuel Beebe Work Phone: 8(551)825-502847 [place] [address] 12-23-2022 14:17-0500 Body mass index (BMI) [Ratio] 25.5 kg/m2 Dr. Manuel Beebe Work Phone: 1(558)485-484647 [place] [address] 12-23-2022 14:17-0500 Body temperature 97.8 [degF] Dr. Manuel Beebe Work Phone: 9(817)696-566947 [place] [address] 12-23-2022 14:17-0500 Body weight 78.[address] Manuel Beebe Work Phone: 3(058)474-872147 [place] [address] 12-23-2022 14:17-0500 Diastolic blood pressure 60 mm[Hg] Dr. Manuel Beebe Work Phone: 6(575)453-174647 [place] [address] 12-23-2022 14:17-0500 Heart rate 71 /min Dr. Manuel Beebe Work Phone: 3(630)970-949147 [place] [address] 12-23-2022 14:17-0500 Respiratory rate 16 /min Dr. Manuel Beebe Work Phone: 6(464)272-615647 [place] [address] 12-23-2022 14:17-0500 SaO2% (BldA) [Mass fraction] 97 % Dr. Manuel Beebe Work Phone: 8(980)668-552747 [place] [address] 12-23-2022 14:17-0500 Systolic blood pressure 96 mm[Hg] Dr. Manuel Beebe Work Phone: 8(718)823-728647 [place] [address] 09-09-2022 11:09-0400 Body height 175.[address] Manuel Beebe Work Phone: 4(665)869-088247 [place] [address] 09-09-2022 11:09-0400 Body mass index (BMI) [Ratio] 25.7 kg/m2 Dr. Manuel Beebe Work Phone: 1(705)240-919247 [place] [address] 09-09-2022 11:09-0400 Body weight 78.[address] Manuel Beeeb Work Phone: 5(809)385-753647 [place] [address] 09-09-2022 11:09-0400 Diastolic blood pressure 68 mm[Hg] Dr. Manuel Beebe Work Phone: 7(656)401-568847 [place] [address] 09-09-2022 11:09-0400 Heart rate 70 /min Dr. Manuel Beebe Work Phone: 2(147)484-946147 [place] [address] 09-09-2022 11:09-0400 Respiratory rate 18 /min Dr. Manuel Beebe Work Phone: 7(539)852-334647 [place] [address] 09-09-2022 11:09-0400 SaO2% (BldA) [Mass fraction] 98 % Dr. Manuel Beebe Work Phone: 9(249)734-156247 [place] [address] 09-09-2022 11:09-0400 Systolic blood pressure 106 mm[Hg] Dr. Manuel Beebe Work Phone: 0(283)472-543147 [place] [address] 09-02-2022 11:18-0400 Body height 175.3 cm Merlin Loredo MD Work Phone: [facility] 09-02-2022 11:18-0400 Body temperature 97.7 [degF] Merlin Loredo MD Work Phone: [facility] 09-02-2022 11:18-0400 Body weight 77.56 kg Merlin Loredo MD Work Phone: [facility] 09-02-2022 11:18-0400 Diastolic blood pressure 73 mm[Hg] Merlin Loredo MD Work Phone: [facility] 09-02-2022 11:18-0400 Heart rate 70 /min Merlin Loredo MD Work Phone: [facility] 09-02-2022 11:18-0400 SaO2% (BldA) [Mass fraction] 99 % Merlin Loredo MD Work Phone: [facility] 09-02-2022 11:18-0400 Systolic blood pressure 116 mm[Hg] Melrin Loredo MD Work Phone: [facility] 08-09-2022 14:56-0400 Body height 175.[address] Manuel Beebe Work Phone: [facility] Work Phone: 08-09-2022 14:56-0400 Body temperature 98 [degF] Dr. Manuel Beebe Work Phone: [facility] 08-09-2022 14:56-0400 Diastolic blood pressure 54 mm[Hg] Dr. Manuel Beebe Work Phone: [facility] 08-09-2022 14:56-0400 Heart rate 70 /min Dr. Manuel Beebe Work Phone: [facility] 08-09-2022 14:56-0400 Respiratory rate 16 /min Dr. Manuel Beebe Work Phone: [facility] 08-09-2022 14:56-0400 SaO2% (BldA) [Mass fraction] 98 % Dr. Manuel Beebe Work Phone: [facility] 08-09-2022 14:56-0400 Systolic blood pressure 128 mm[Hg] Dr. Manuel Beebe Work Phone: [facility] 07-21-2022 13:33-0400 Body height 175.[address] Manuel Beebe Work Phone: [facility] Work Phone: 07-21-2022 13:33-0400 Body mass index (BMI) [Ratio] 25.7 kg/m2 Dr. Manuel Beebe Work Phone: [facility] Work Phone: 07-21-2022 13:33-0400 Body temperature 97.3 [degF] Dr. Manuel Beeeb Work Phone: [facility] Work Phone: 07-21-2022 13:33-0400 Body weight 78.[address] Manuel Beebe Work Phone: [facility] Work Phone: 07-21-2022 13:33-0400 Diastolic blood pressure 63 mm[Hg] Dr. Manuel Beebe Work Phone: [facility] Work Phone: 07-21-2022 13:33-0400 Heart rate 70 /min Dr. Manuel Beebe Work Phone: [facility] Work Phone: 07-21-2022 13:33-0400 Respiratory rate 16 /min Dr. Manuel Beebe Work Phone: [facility] Work Phone: 07-21-2022 13:33-0400 SaO2% (BldA) [Mass fraction] 98 % Dr. Manuel Beebe Work Phone: [facility] Work Phone: 07-21-2022 13:33-0400 Systolic blood pressure 93 mm[Hg] Dr. Manuel Beebe Work Phone: [facility] Work Phone: 06-15-2022 16:04-0400 Body height 175.3 cm Munira Dickerson MD Work Phone: [facility] 06-15-2022 16:04-0400 Body mass index (BMI) [Ratio] 25.84 kg/m2 Munira Dickerson MD Work Phone: [facility] 06-15-2022 16:04-0400 Body weight 79.38 kg Munira Dickerson MD Work Phone: [facility] 06-07-2022 18:45-0400 Diastolic blood pressure 65 mm[Hg] Dr. Manuel Beebe Work Phone: [facility] Work Phone: 06-07-2022 18:45-0400 Heart rate 70 /min Dr. Manuel Beebe Work Phone: [facility] Work Phone: 06-07-2022 18:45-0400 Respiratory rate 15 /min Dr. Manuel Beebe Work Phone: [facility] Work Phone: 06-07-2022 18:45-0400 SaO2% (BldA) [Mass fraction] 100 % Dr. Manuel Beebe Work Phone: [facility] Work Phone: 06-07-2022 18:45-0400 Systolic blood pressure 111 mm[Hg] Dr. Manuel Beebe Work Phone: [facility] Work Phone: 06-07-2022 13:38-0400 Body height 175.[address] Manuel Beebe Work Phone: [facility] Work Phone: 06-07-2022 13:38-0400 Body mass index (BMI) [Ratio] 26.6 kg/m2 Dr. Manuel Beebe Work Phone: [facility] Work Phone: 06-07-2022 13:38-0400 Body temperature 98.5 [degF] Dr. Manuel Beebe Work Phone: [facility] Work Phone: 06-07-2022 13:38-0400 Body weight 81.[address] Manuel Beebe Work Phone: [facility] Work Phone: 05-24-2022 14:11-0400 Body height 175.[address] Manuel Beebe Work Phone: [facility] Work Phone: 05-24-2022 14:11-0400 Body temperature 97.8 [degF] Dr. Manuel Beebe Work Phone: [facility] Work Phone: 05-24-2022 14:11-0400 Diastolic blood pressure 82 mm[Hg] Dr. Manuel Beebe Work Phone: [facility] Work Phone: 05-24-2022 14:11-0400 Heart rate 70 /min Dr. Manuel Beebe Work Phone: [facility] Work Phone: 05-24-2022 14:11-0400 Respiratory rate 16 /min Dr. Manuel Beebe Work Phone: [facility] Work Phone: 05-24-2022 14:11-0400 SaO2% (BldA) [Mass fraction] 98 % Dr. Manuel Beebe Work Phone: [facility] Work Phone: 05-24-2022 14:11-0400 Systolic blood pressure 117 mm[Hg] Dr. Manuel Beebe Work Phone: [facility] Work Phone: 04-30-2022 05:11-0400 Diastolic blood pressure 70 mm[Hg] Dr. Manuel Beebe Work Phone: [facility] Work Phone: 04-30-2022 05:11-0400 Heart rate 72 /min Dr. Manuel Beebe Work Phone: [facility] Work Phone: 04-30-2022 05:11-0400 Respiratory rate 22 /min Dr. Manuel Beebe Work Phone: [facility] Work Phone: 04-30-2022 05:11-0400 SaO2% (BldA) [Mass fraction] 100 % Dr. Manuel Beebe Work Phone: [facility] Work Phone: 04-30-2022 05:11-0400 Systolic blood pressure 136 mm[Hg] Dr. Manuel Beebe Work Phone: [facility] Work Phone: 04-30-2022 02:21-0400 Body height 175.[address] Manuel Beebe Work Phone: [facility] Work Phone: 04-30-2022 02:21-0400 Body mass index (BMI) [Ratio] 27.7 kg/m2 Dr. Manuel Beebe Work Phone: [facility] Work Phone: 04-30-2022 02:21-0400 Body temperature 97.6 [degF] Dr. Manuel Beebe Work Phone: [facility] Work Phone: 04-30-2022 02:21-0400 Body weight 85.[address] Manuel Beebe Work Phone: [facility] Work Phone: 04-27-2022 12:13-0400 Heart rate 72 /min Dr. Manuel Beebe Work Phone: [facility] Work Phone: 04-27-2022 11:20-0400 Body temperature 97.6 [degF] Dr. Manuel Beebe Work Phone: [facility] Work Phone: 04-27-2022 11:20-0400 Diastolic blood pressure 98 mm[Hg] Dr. Manuel Beebe Work Phone: [facility] Work Phone: 04-27-2022 11:20-0400 Respiratory rate 16 /min Dr. Manuel Beebe Work Phone: [facility] Work Phone: 04-27-2022 11:20-0400 SaO2% (BldA) [Mass fraction] 99 % Dr. Manuel Beebe Work Phone: [facility] Work Phone: 04-27-2022 11:20-0400 Systolic blood pressure 132 mm[Hg] Dr. Manuel Beebe Work Phone: [facility] Work Phone: 04-27-2022 07:43-0400 Inhaled oxygen flow rate 1 L/min Dr. Manuel Beebe Work Phone: [facility] Work Phone: 04-27-2022 06:00-0400 Body weight 82.[address] Manuel Beebe Work Phone: [facility] Work Phone: 04-25-2022 20:30-0400 Body height 175.[address] Manuel Beebe Work Phone: [facility] Work Phone: 04-25-2022 20:30-0400 Body mass index (BMI) [Ratio] 27.2 kg/m2 Dr. Manuel Beebe Work Phone: [facility] Work Phone: 04-14-2022 09:10-0400 Body temperature 97.1 [degF] Dr. Manuel Beebe Work Phone: [facility] Work Phone: 04-14-2022 09:10-0400 Diastolic blood pressure 74 mm[Hg] Dr. Manuel Beebe Work Phone: [facility] Work Phone: 04-14-2022 09:10-0400 Heart rate 70 /min Dr. Manuel Beebe Work Phone: [facility] Work Phone: 04-14-2022 09:10-0400 Respiratory rate 18 /min Dr. Manuel Beebe Work Phone: [facility] Work Phone: 04-14-2022 09:10-0400 SaO2% (BldA) [Mass fraction] 97 % Dr. Manuel Beebe Work Phone: [facility] Work Phone: 04-14-2022 09:10-0400 Systolic blood pressure 129 mm[Hg] Dr. Manuel Beebe Work Phone: [facility] Work Phone: 04-13-2022 14:11-0400 Body weight 83.[address] Manuel Beebe Work Phone: [facility] Work Phone: 04-13-2022 13:35-0400 Inhaled oxygen flow rate 3 L/min Dr. Manuel Beebe Work Phone: [facility] Work Phone: 04-13-2022 13:08-0400 Body temperature 98.4 [degF] Dr. Manuel Beebe Work Phone: [facility] Work Phone: 04-13-2022 13:08-0400 Body weight 83.[address] Manuel Beebe Work Phone: [facility] Work Phone: 04-13-2022 13:08-0400 Diastolic blood pressure 79 mm[Hg] Dr. Manuel Beebe Work Phone: [facility] Work Phone: 04-13-2022 13:08-0400 Heart rate 70 /min Dr. Manuel Beebe Work Phone: [facility] Work Phone: 04-13-2022 13:08-0400 Respiratory rate 18 /min Dr. Manuel Beebe Work Phone: [facility] Work Phone: 04-13-2022 13:08-0400 SaO2% (BldA) [Mass fraction] 99 % Dr. Manuel Beebe Work Phone: [facility] Work Phone: 04-13-2022 13:08-0400 Systolic blood pressure 117 mm[Hg] Dr. Manuel Beebe Work Phone: [facility] Work Phone: 04-13-2022 13:08-0400 Body temperature 98.4 [degF] Dr. Manuel Beebe Work Phone: [facility] Work Phone: 04-13-2022 13:08-0400 Body weight 83.[address] Manuel Beebe Work Phone: [facility] Work Phone: 04-13-2022 13:08-0400 Diastolic blood pressure 79 mm[Hg] Dr. Manuel Beebe Work Phone: [facility] Work Phone: 04-13-2022 13:08-0400 Heart rate 70 /min Dr. Manuel Beebe Work Phone: [facility] Work Phone: 04-13-2022 13:08-0400 Respiratory rate 18 /min Dr. Manuel Beebe Work Phone: [facility] Work Phone: 04-13-2022 13:08-0400 SaO2% (BldA) [Mass fraction] 99 % Dr. Manuel Beebe Work Phone: [facility] Work Phone: 04-13-2022 13:08-0400 Systolic blood pressure 117 mm[Hg] Dr. Manuel Beebe Work Phone: [facility] Work Phone: 04-12-2022 11:12-0400 Body temperature 96.6 [degF] Dr. Manuel Beebe Work Phone: [facility] Work Phone: 04-12-2022 11:12-0400 Heart rate 70 /min Dr. Manuel Beebe Work Phone: [facility] Work Phone: 04-12-2022 11:12-0400 Respiratory rate 20 /min Dr. Manuel Beebe Work Phone: [facility] Work Phone: 04-12-2022 11:12-0400 SaO2% (BldA) [Mass fraction] 97 % Dr. Manuel Beebe Work Phone: [facility] Work Phone: 04-12-2022 10:46-0400 Diastolic blood pressure 87 mm[Hg] Dr. Manuel Beebe Work Phone: [facility] Work Phone: 04-12-2022 10:46-0400 Systolic blood pressure 122 mm[Hg] Dr. Manuel Beebe Work Phone: [facility] Work Phone: 04-07-2022 13:40-0400 Body height 175.[address] Manuel Beebe Work Phone: [facility] Work Phone: 04-07-2022 13:40-0400 Body weight 81.[address] Manuel Beebe Work Phone: [facility] Work Phone: 03-31-2022 12:40-0400 Body temperature 97.2 [degF] Dr. Manuel Beebe Work Phone: [facility] Work Phone: 03-31-2022 12:40-0400 Diastolic blood pressure 82 mm[Hg] Dr. Manuel Beebe Work Phone: [facility] Work Phone: 03-31-2022 12:40-0400 Heart rate 79 /min Dr. Manuel Beebe Work Phone: [facility] Work Phone: 03-31-2022 12:40-0400 Respiratory rate 18 /min Dr. Manuel Beebe Work Phone: [facility] Work Phone: 03-31-2022 12:40-0400 SaO2% (BldA) [Mass fraction] 98 % Dr. Manuel Beebe Work Phone: [facility] Work Phone: 03-31-2022 12:40-0400 Systolic blood pressure 122 mm[Hg] Dr. Manuel Beebe Work Phone: [facility] Work Phone: 03-31-2022 08:37-0400 Body mass index (BMI) [Ratio] 25.7 kg/m2 Dr. Manuel Beebe Work Phone: [facility] Work Phone: 03-31-2022 08:37-0400 Body weight 78.[address] Manuel Beebe Work Phone: [facility] Work Phone: 03-23-2022 14:02-0400 Body height 175.3 cm Munira Dickerson MD Work Phone: [facility] 03-23-2022 14:02-0400 Body mass index (BMI) [Ratio] 24.22 kg/m2 Munira Dickerson MD Work Phone: [facility] 03-23-2022 14:02-0400 Body weight 74.39 kg Munira Dickerson MD Work Phone: [facility] 03-17-2022 11:19-0400 Body mass index (BMI) [Ratio] 24.8 kg/m2 Dr. Manuel Beebe Work Phone: [facility] Work Phone: 03-17-2022 11:19-0400 Body temperature 98.2 [degF] Dr. Manuel Beebe Work Phone: [facility] Work Phone: 03-17-2022 11:19-0400 Body weight 76.[address] Manuel Beebe Work Phone: [facility] Work Phone: 03-17-2022 11:19-0400 Diastolic blood pressure 59 mm[Hg] Dr. Manuel Beebe Work Phone: [facility] Work Phone: 03-17-2022 11:19-0400 Heart rate 70 /min Dr. Manuel Beebe Work Phone: [facility] Work Phone: 03-17-2022 11:19-0400 Respiratory rate 16 /min Dr. Manuel Beebe Work Phone: [facility] Work Phone: 03-17-2022 11:19-0400 SaO2% (BldA) [Mass fraction] 99 % Dr. Manuel Beebe Work Phone: [facility] Work Phone: 03-17-2022 11:19-0400 Systolic blood pressure 88 mm[Hg] Dr. Manuel Beebe Work Phone: [facility] Work Phone: 03-17-2022 11:19-0400 Body mass index (BMI) [Ratio] 24.8 kg/m2 Dr. Manuel Beebe Work Phone: [facility] Work Phone: 03-17-2022 11:19-0400 Body temperature 98.2 [degF] Dr. Manuel Beebe Work Phone: [facility] Work Phone: 03-17-2022 11:19-0400 Body weight 76.[address] Manuel Beebe Work Phone: [facility] Work Phone: 03-17-2022 11:19-0400 Diastolic blood pressure 59 mm[Hg] Dr. Manuel Beebe Work Phone: [facility] Work Phone: 03-17-2022 11:19-0400 Heart rate 70 /min Dr. Manuel Beebe Work Phone: [facility] Work Phone: 03-17-2022 11:19-0400 Respiratory rate 16 /min Dr. Manuel Beebe Work Phone: [facility] Work Phone: 03-17-2022 11:19-0400 SaO2% (BldA) [Mass fraction] 99 % Dr. Manuel Beebe Work Phone: [facility] Work Phone: 03-17-2022 11:19-0400 Systolic blood pressure 88 mm[Hg] Dr. Manuel Beeeb Work Phone: [facility] Work Phone: 03-10-2022 11:12-0400 Body mass index (BMI) [Ratio] 24.6 kg/m2 Dr. Manuel Beebe Work Phone: [facility] Work Phone: 03-10-2022 11:12-0400 Body temperature 96.8 [degF] Dr. Manuel Beebe Work Phone: [facility] Work Phone: 03-10-2022 11:12-0400 Body weight 75.[address] Manuel Beebe Work Phone: [facility] Work Phone: 03-10-2022 11:12-0400 Diastolic blood pressure 53 mm[Hg] Dr. Manuel Beebe Work Phone: [facility] Work Phone: 03-10-2022 11:12-0400 Heart rate 70 /min Dr. Manuel Beebe Work Phone: [facility] Work Phone: 03-10-2022 11:12-0400 Respiratory rate 14 /min Dr. Manuel Beebe Work Phone: [facility] Work Phone: 03-10-2022 11:12-0400 SaO2% (BldA) [Mass fraction] 100 % Dr. Manuel Beebe Work Phone: [facility] Work Phone: 03-10-2022 11:12-0400 Systolic blood pressure 72 mm[Hg] Dr. Manuel Beebe Work Phone: [facility] Work Phone: 03-10-2022 11:12-0400 Body mass index (BMI) [Ratio] 24.6 kg/m2 Dr. Manuel Beebe Work Phone: [facility] Work Phone: 03-10-2022 11:12-0400 Body temperature 96.8 [degF] Dr. Manuel Beebe Work Phone: [facility] Work Phone: 03-10-2022 11:12-0400 Body weight 75.[address] Manuel Beebe Work Phone: [facility] Work Phone: 03-10-2022 11:12-0400 Diastolic blood pressure 53 mm[Hg] Dr. Manuel Beebe Work Phone: [facility] Work Phone: 03-10-2022 11:12-0400 Heart rate 70 /min Dr. Manuel Beebe Work Phone: [facility] Work Phone: 03-10-2022 11:12-0400 Respiratory rate 14 /min Dr. Manuel Beebe Work Phone: [facility] Work Phone: 03-10-2022 11:12-0400 SaO2% (BldA) [Mass fraction] 100 % Dr. Manuel Beebe Work Phone: [facility] Work Phone: 03-10-2022 11:12-0400 Systolic blood pressure 72 mm[Hg] Dr. Manuel Beebe Work Phone: [facility] Work Phone: 03-03-2022 11:06-0400 Body temperature 98.2 [degF] Dr. Manuel Beebe Work Phone: [facility] Work Phone: 03-03-2022 11:06-0400 Diastolic blood pressure 61 mm[Hg] Dr. Manuel Beebe Work Phone: [facility] Work Phone: 03-03-2022 11:06-0400 Heart rate 69 /min Dr. Manuel Beebe Work Phone: [facility] Work Phone: 03-03-2022 11:06-0400 Respiratory rate 14 /min Dr. Manuel Beebe Work Phone: [facility] Work Phone: 03-03-2022 11:06-0400 SaO2% (BldA) [Mass fraction] 100 % Dr. Manuel Beebe Work Phone: [facility] Work Phone: 03-03-2022 11:06-0400 Systolic blood pressure 95 mm[Hg] Dr. Manuel Beebe Work Phone: [facility] Work Phone: 03-03-2022 11:06-0400 Body temperature 98.2 [degF] Dr. Manuel Beebe Work Phone: [facility] Work Phone: 03-03-2022 11:06-0400 Diastolic blood pressure 61 mm[Hg] Dr. Manuel Beebe Work Phone: [facility] Work Phone: 03-03-2022 11:06-0400 Heart rate 69 /min Dr. Manuel Beebe Work Phone: [facility] Work Phone: 03-03-2022 11:06-0400 Respiratory rate 14 /min Dr. Manuel Beebe Work Phone: [facility] Work Phone: 03-03-2022 11:06-0400 SaO2% (BldA) [Mass fraction] 100 % Dr. Manuel Beebe Work Phone: [facility] Work Phone: 03-03-2022 11:06-0400 Systolic blood pressure 95 mm[Hg] Dr. Manuel Beebe Work Phone: [facility] Work Phone: 02-24-2022 13:27-0400 Body temperature 97.2 [degF] Dr. Manuel Beebe Work Phone: [facility] Work Phone: 02-24-2022 13:27-0400 Diastolic blood pressure 58 mm[Hg] Dr. Manuel Beebe Work Phone: [facility] Work Phone: 02-24-2022 13:27-0400 Heart rate 70 /min Dr. Manuel Beebe Work Phone: [facility] Work Phone: 02-24-2022 13:27-0400 Respiratory rate 14 /min Dr. Manuel Beebe Work Phone: [facility] Work Phone: 02-24-2022 13:27-0400 SaO2% (BldA) [Mass fraction] 97 % Dr. Manuel Beebe Work Phone: [facility] Work Phone: 02-24-2022 13:27-0400 Systolic blood pressure 88 mm[Hg] Dr. Manuel Beebe Work Phone: [facility] Work Phone: 02-24-2022 13:27-0400 Body temperature 97.2 [degF] Dr. Manuel Beebe Work Phone: [facility] Work Phone: 02-24-2022 13:27-0400 Diastolic blood pressure 58 mm[Hg] Dr. Manuel Beebe Work Phone: [facility] Work Phone: 02-24-2022 13:27-0400 Heart rate 70 /min Dr. Manuel Beebe Work Phone: [facility] Work Phone: 02-24-2022 13:27-0400 Respiratory rate 14 /min Dr. Manuel Beebe Work Phone: [facility] Work Phone: 02-24-2022 13:27-0400 SaO2% (BldA) [Mass fraction] 97 % Dr. Manuel Beebe Work Phone: [facility] Work Phone: 02-24-2022 13:27-0400 Systolic blood pressure 88 mm[Hg] Dr. Manuel Beebe Work Phone: [facility] Work Phone: 02-19-2022 11:41-0400 Body mass index (BMI) [Ratio] 27.2 kg/m2 Dr. Manuel Beebe Work Phone: [facility] Work Phone: 02-10-2022 14:22-0400 Diastolic blood pressure 78 mm[Hg] Dr. Manuel Beebe Work Phone: [facility] Work Phone: 02-10-2022 14:22-0400 Heart rate 81 /min Dr. Manuel Beebe Work Phone: [facility] Work Phone: 02-10-2022 14:22-0400 Respiratory rate 16 /min Dr. Manuel Beebe Work Phone: [facility] Work Phone: 02-10-2022 14:22-0400 SaO2% (BldA) [Mass fraction] 100 % Dr. Manuel Beebe Work Phone: [facility] Work Phone: 02-10-2022 14:22-0400 Systolic blood pressure 114 mm[Hg] Dr. Manuel Beebe Work Phone: [facility] Work Phone: 02-10-2022 13:00-0400 Inhaled oxygen flow rate 4 L/min Dr. Manuel Beebe Work Phone: [facility] Work Phone: 02-10-2022 03:20-0400 Body height 175.[address] Manuel Beebe Work Phone: [facility] Work Phone: 02-10-2022 03:20-0400 Body mass index (BMI) [Ratio] 23.9 kg/m2 Dr. Manuel Beebe Work Phone: [facility] Work Phone: 02-10-2022 03:20-0400 Body temperature 97.5 [degF] Dr. Manuel Beebe Work Phone: [facility] Work Phone: 02-10-2022 03:20-0400 Body weight 73.[address] Manuel Beebe Work Phone: [facility] Work Phone: 02-03-2022 10:58-0400 Body temperature 98.4 [degF] Dr. Manuel Beebe Work Phone: [facility] Work Phone: 02-03-2022 10:58-0400 Body weight 73.[address] Manuel Beebe Work Phone: [facility] Work Phone: 02-03-2022 10:58-0400 Diastolic blood pressure 76 mm[Hg] Dr. Manuel Beebe Work Phone: [facility] Work Phone: 02-03-2022 10:58-0400 Heart rate 70 /min Dr. Manuel Beebe Work Phone: [facility] Work Phone: 02-03-2022 10:58-0400 Respiratory rate 14 /min Dr. Manuel Beebe Work Phone: [facility] Work Phone: 02-03-2022 10:58-0400 SaO2% (BldA) [Mass fraction] 100 % Dr. Manuel Beebe Work Phone: [facility] Work Phone: 02-03-2022 10:58-0400 Systolic blood pressure 115 mm[Hg] Dr. Manuel Beebe Work Phone: [facility] Work Phone: 02-03-2022 10:58-0400 Body temperature 98.4 [degF] Dr. Manuel Beebe Work Phone: [facility] Work Phone: 02-03-2022 10:58-0400 Body weight 73.[address] Manuel Beebe Work Phone: [facility] Work Phone: 02-03-2022 10:58-0400 Diastolic blood pressure 76 mm[Hg] Dr. Manuel Beebe Work Phone: [facility] Work Phone: 02-03-2022 10:58-0400 Heart rate 70 /min Dr. Manuel Beebe Work Phone: [facility] Work Phone: 02-03-2022 10:58-0400 Respiratory rate 14 /min Dr. Manuel Beebe Work Phone: [facility] Work Phone: 02-03-2022 10:58-0400 SaO2% (BldA) [Mass fraction] 100 % Dr. Manuel Beebe Work Phone: [facility] Work Phone: 02-03-2022 10:58-0400 Systolic blood pressure 115 mm[Hg] Dr. Manuel Beebe Work Phone: [facility] Work Phone: 01-27-2022 11:46-0400 Body temperature 98.4 [degF] Dr. Manuel Beebe Work Phone: [facility] Work Phone: 01-27-2022 11:46-0400 Body weight 72.[address] Manuel Beebe Work Phone: [facility] Work Phone: 01-27-2022 11:46-0400 Diastolic blood pressure 85 mm[Hg] Dr. Manuel Beebe Work Phone: [facility] Work Phone: 01-27-2022 11:46-0400 Heart rate 70 /min Dr. Manuel Beebe Work Phone: [facility] Work Phone: 01-27-2022 11:46-0400 Respiratory rate 14 /min Dr. Manuel Beebe Work Phone: [facility] Work Phone: 01-27-2022 11:46-0400 SaO2% (BldA) [Mass fraction] 97 % Dr. Manuel Beebe Work Phone: [facility] Work Phone: 01-27-2022 11:46-0400 Systolic blood pressure 138 mm[Hg] Dr. Manuel Beebe Work Phone: [facility] Work Phone: 01-27-2022 11:46-0400 Body temperature 98.4 [degF] Dr. Manuel Beebe Work Phone: [facility] Work Phone: 01-27-2022 11:46-0400 Body weight 72.[address] Manuel Beebe Work Phone: [facility] Work Phone: 01-27-2022 11:46-0400 Diastolic blood pressure 85 mm[Hg] Dr. Manuel Beebe Work Phone: [facility] Work Phone: 01-27-2022 11:46-0400 Heart rate 70 /min Dr. Manuel Beebe Work Phone: [facility] Work Phone: 01-27-2022 11:46-0400 Respiratory rate 14 /min Dr. Manuel Beebe Work Phone: [facility] Work Phone: 01-27-2022 11:46-0400 SaO2% (BldA) [Mass fraction] 97 % Dr. Manuel Beebe Work Phone: [facility] Work Phone: 01-27-2022 11:46-0400 Systolic blood pressure 138 mm[Hg] Dr. Manuel Beebe Work Phone: [facility] Work Phone: 01-26-2022 08:35-0400 Body weight 70.[address] Manuel Beebe Work Phone: [facility] Work Phone: 01-26-2022 08:35-0400 Diastolic blood pressure 69 mm[Hg] Dr. Manuel Beebe Work Phone: [facility] Work Phone: 01-26-2022 08:35-0400 Heart rate 66 /min Dr. Manuel Beebe Work Phone: [facility] Work Phone: 01-26-2022 08:35-0400 Respiratory rate 16 /min Dr. Manuel Beebe Work Phone: [facility] Work Phone: 01-26-2022 08:35-0400 SaO2% (BldA) [Mass fraction] 100 % Dr. Manuel Beebe Work Phone: [facility] Work Phone: 01-26-2022 08:35-0400 Systolic blood pressure 112 mm[Hg] Dr. Manuel Beebe Work Phone: [facility] Work Phone: 01-26-2022 08:35-0400 Body weight 70.[address] Manuel Beebe Work Phone: [facility] Work Phone: 01-26-2022 08:35-0400 Diastolic blood pressure 69 mm[Hg] Dr. Manuel Beebe Work Phone: [facility] Work Phone: 01-26-2022 08:35-0400 Heart rate 66 /min Dr. Manuel Beebe Work Phone: [facility] Work Phone: 01-26-2022 08:35-0400 Respiratory rate 16 /min Dr. Manuel Beebe Work Phone: [facility] Work Phone: 01-26-2022 08:35-0400 SaO2% (BldA) [Mass fraction] 100 % Dr. Manuel Beebe Work Phone: [facility] Work Phone: 01-26-2022 08:35-0400 Systolic blood pressure 112 mm[Hg] Dr. Manuel Beebe Work Phone: [facility] Work Phone: 01-14-2022 13:15-0500 Diastolic blood pressure 69 mm[Hg] Dr. Manuel Beebe Work Phone: [facility] Work Phone: 01-14-2022 13:15-0500 Heart rate 90 /min Dr. Manuel Beebe Work Phone: [facility] Work Phone: 01-14-2022 13:15-0500 Respiratory rate 18 /min Dr. Manuel Beebe Work Phone: [facility] Work Phone: 01-14-2022 13:15-0500 SaO2% (BldA) [Mass fraction] 96 % Dr. Manuel Beebe Work Phone: [facility] Work Phone: 01-14-2022 13:15-0500 Systolic blood pressure 112 mm[Hg] Dr. Manuel Beebe Work Phone: [facility] Work Phone: 01-14-2022 12:15-0500 Diastolic blood pressure 69 mm[Hg] Dr. Manuel Beebe Work Phone: [facility] Work Phone: 01-14-2022 12:15-0500 Heart rate 90 /min Dr. Manuel Beebe Work Phone: [facility] Work Phone: 01-14-2022 12:15-0500 Respiratory rate 18 /min Dr. Manuel Beebe Work Phone: [facility] Work Phone: 01-14-2022 12:15-0500 SaO2% (BldA) [Mass fraction] 96 % Dr. Manuel Beebe Work Phone: [facility] Work Phone: 01-14-2022 12:15-0500 Systolic blood pressure 112 mm[Hg] Dr. Manuel Beebe Work Phone: [facility] Work Phone: 01-06-2022 09:48-0500 Body temperature 96.9 [degF] Dr. Manuel Beebe Work Phone: [facility] Work Phone: 01-06-2022 09:48-0500 Diastolic blood pressure 74 mm[Hg] Dr. Manuel Beebe Work Phone: [facility] Work Phone: 01-06-2022 09:48-0500 Heart rate 70 /min Dr. Manuel Beebe Work Phone: [facility] Work Phone: 01-06-2022 09:48-0500 Respiratory rate 16 /min Dr. Manuel Beebe Work Phone: [facility] Work Phone: 01-06-2022 09:48-0500 SaO2% (BldA) [Mass fraction] 97 % Dr. Manuel Beebe Work Phone: [facility] Work Phone: 01-06-2022 09:48-0500 Systolic blood pressure 108 mm[Hg] Dr. Manuel Beebe Work Phone: [facility] Work Phone: 01-06-2022 08:48-0500 Body temperature 96.9 [degF] Dr. Manuel Beebe Work Phone: [facility] Work Phone: 01-06-2022 08:48-0500 Diastolic blood pressure 74 mm[Hg] Dr. Manuel Beebe Work Phone: [facility] Work Phone: 01-06-2022 08:48-0500 Heart rate 70 /min Dr. Manuel Beebe Work Phone: [facility] Work Phone: 01-06-2022 08:48-0500 Respiratory rate 16 /min Dr. Manuel Beebe Work Phone: [facility] Work Phone: 01-06-2022 08:48-0500 SaO2% (BldA) [Mass fraction] 97 % Dr. Manuel Beebe Work Phone: [facility] Work Phone: 01-06-2022 08:48-0500 Systolic blood pressure 108 mm[Hg] Dr. Manuel Beebe Work Phone: [facility] Work Phone: 01-06-2022 06:26-0500 Body mass index (BMI) [Ratio] 25 kg/m2 Dr. Manuel Beebe Work Phone: [facility] Work Phone: 01-06-2022 06:26-0500 Body weight [address] Manuel Beebe Work Phone: [facility] Work Phone: 01-06-2022 05:26-0500 Body mass index (BMI) [Ratio] 25 kg/m2 Dr. Manuel Beebe Work Phone: [facility] Work Phone: 01-06-2022 05:26-0500 Body weight [address] Manuel Beebe Work Phone: [facility] Work Phone: 12-10-2021 10:06-0500 Body mass index (BMI) [Ratio] 25.1 kg/m2 Dr. Manuel Beebe Work Phone: [facility] Work Phone: 12-10-2021 10:06-0500 Body weight 77.[address] Manuel Beebe Work Phone: [facility] Work Phone: 12-10-2021 10:06-0500 Diastolic blood pressure 72 mm[Hg] Dr. Manuel Beebe Work Phone: [facility] Work Phone: 12-10-2021 10:06-0500 Heart rate 70 /min Dr. Manuel Beebe Work Phone: [facility] Work Phone: 12-10-2021 10:06-0500 Respiratory rate 17 /min Dr. Manuel Beebe Work Phone: [facility] Work Phone: 12-10-2021 10:06-0500 SaO2% (BldA) [Mass fraction] 94 % Dr. Manuel Beebe Work Phone: [facility] Work Phone: 12-10-2021 10:06-0500 Systolic blood pressure 103 mm[Hg] Dr. Manuel Beebe Work Phone: [facility] Work Phone: 12-10-2021 09:23-0500 Body mass index (BMI) [Ratio] 22.7 kg/m2 Dr. Manuel Beebe Work Phone: [facility] Work Phone: 12-10-2021 09:23-0500 Body temperature 97.3 [degF] Dr. Manuel Beebe Work Phone: [facility] Work Phone: 12-10-2021 09:23-0500 Body weight 69.[address] Mnauel Beebe Work Phone: [facility] Work Phone: 12-10-2021 09:23-0500 Diastolic blood pressure 72 mm[Hg] Dr. Manuel Beebe Work Phone: [facility] Work Phone: 12-10-2021 09:23-0500 Heart rate 70 /min Dr. Manuel Beebe Work Phone: [facility] Work Phone: 12-10-2021 09:23-0500 Respiratory rate 17 /min Dr. Manuel Beebe Work Phone: [facility] Work Phone: 12-10-2021 09:23-0500 SaO2% (BldA) [Mass fraction] 94 % Dr. Manuel Beebe Work Phone: [facility] Work Phone: 12-10-2021 09:23-0500 Systolic blood pressure 103 mm[Hg] Dr. Manuel Beebe Work Phone: [facility] Work Phone: 05-08-2021 08:49-0400 Body mass index (BMI) [Ratio] 21.7 kg/m2 Dr. Manuel Beebe Work Phone: [facility] Work Phone: 05-08-2021 08:49-0400 Body mass index (BMI) [Ratio] 21.7 kg/m2 Dr. Manuel Beebe Work Phone: [facility] Work Phone: Encounters Encounter Date Encounter Type Care Provider Facility Start: 08-21-2025 End: 08-21-2025 ambulatory ELISA D GUDLA Facility:[facility] Start: 08-13-2025 ambulatory Manuel Felderas Facilit y:[facility] Start: 08-07-2025 End: 08-08-2025 ambulatory EL HOPE Facility:[facility] Start: 08-06-[address] Elisa Narvaez MD -[facility] Start: 08-06-2025 End: 08-06-2025 ambulatory Manuel Fritzamptessy Facility:[facility] Start: 07-31-2025 End: 07-31-2025 ambulatory ELISA D GUDLA Facility:[facility] Start: 07-30-2025 End: 07-30-2025 ambulatory ELISA D GUDLA Facility:[facility] Start: 07-30-2025 Encounter for other preprocedural examination JONNATHAN KOTHARI [facility] Start: 07-30-2025 End: 07-31-2025 ambulatory ELISA D GUDLA Facility:[facility] Start: 07-30-2025 End: 07-30-2025 ambulatory ELISA D GUDLA Facility:[facility] Start: 07-23-2025 End: 07-23-2025 Orders Only Lupe Rushing MD Work Phone: Pre Anesthesia Start: 07-19-2025 End: 07-19-2025 Telephone encounter Merlin Loredo MD Work Phone: Gastroenterology Comment on above: Results Start: 07-17-2025 End: 07-17-2025 Telephone encounter Lupe Rushing MD Work Phone: Pre Anesthesia Comment on above: Primary pulmonary hy pertension (HCC) (Primary Dx) Start: 07-17-2025 End: 07-17-2025 ambulatory ELISA NARVAEZ Facility:[facility] Start: 07-17-2025 Encounter for other preprocedural examination LUPE RUSHING [facility] Start: 07-17-2025 End: 07-17-2025 Admission to establishment Lupe Rushing MD Work Phone: [facility] Start: 07-17-2025 End: 07-17-2025 Anticoagulant drug monitoring Lupe Rushing MD Work Phone: [facility] Comment on above: Moderate [...] encounter status Lupe Rushing MD Work Phone: [facility] Start: 07-17-2025 End: 07-17-2025 Preprocedural examination done Lupe Rushing MD Work Phone: [facility] Start: 07-17-2025 End: 07-18-2025 Patient encounter procedure Merlin Loredo MD Work Phone: Gastroenterology Comment on above: Liver disease (Prima ry Dx) Start: 07-17-2025 End: 07-17-2025 Subsequent hospital visit by physician Us Aleman A21 3 Work Phone: Radiology Comment on above: Liver disease [K76.9 ] Start: 07-17-2025 End: 07-18-2025 ambulatory ELISA NARVAEZ Facility:[facility] Start: 07-17-2025 Encounter for other preprocedural examination JONNATHAN SANIYA [facility] Start: 07-16-2025 End: 07-16-[address] Dwayne Horton MD -[facility] Work Phone: Start: 07-16-2025 End: 07-16-[address] Manuel Beeeb MD Work Phone: -[facility] Start: 07-16-[address] Elisa Narvaez MD -[facility] Start: 07-16-2025 End: 07-16-2025 ambulatory Elisa SERRANO Facility:[facility] Start: 07-09-2025 ambulatory Elisa SERRANO [facility] ty:[facility] Start: 07-09-[address] Elisa Narvaez MD -[facility] Start: 06-18-2025 End: 06-18-[address] Manuel Beebe MD Work Phone: -[facility] Start: 06-18-2025 End: 06-18-2025 Patient encounter procedure Maye FORREST -[facility] Work Phone: Start: 06-14-2025 End: 06-14-[address] Manuel Beebe MD Work Phone: -[facility] Start: 06-14-2025 End: 06-14-[address] Cosme Gonzáles MD -[facility] Work Phone: Start: 06-11-[address] Elisa Narvaez MD -[facility] Start: 06-11-2025 End: 06-11-2025 ambulatory Elisa SERRANO Facility:[facility] Start: 05-30-[address] Elisa Narvaez MD -[facility] Start: 05-29-2025 End: 05-30-2025 ambulatory Injection [facility] Work Phone: Hematology/Oncology Comment on above: Prostate cancer (HCC ) (Primary Dx) Start: 05-24-2025 End: 05-24-[address] Manuel Beebe MD Work Phone: -[facility] Start: 05-24-2025 End: 05-24-[address] Cosme Gonzáles MD -[facility] Work Phone: Start: 05-21-2025 End: 05-21-[address] Manuel Beebe MD Work Phone: -[facility] Start: 05-21-2025 End: 05-21-[address] Elisa Narvaez MD -[facility] Start: 05-21-[address] Elisa Narvaez MD -[facility] Start: 05-21-2025 End: 05-21-2025 ambulatory Manuel Beebe Facility:[facility] Start: 05-17-2025 End: 05-17-2025 ambulatory El Arnett MD Work Phone: [facility] Comment on above: 08.07.25 Cure (Open Right Inguinal Hernia Repair 2.5 hours los 2) Start: 05-17-2025 End: 05-17-2025 Preprocedural examination done El Arnett MD Work Phone: [facility] Start: 05-16-2025 End: 05-16-2025 Patient encounter procedure El Arnett MD Work Phone: General Surgery Comment on above: Right inguinal herni a (Primary Dx) Start: 05-16-2025 End: 05-16-2025 ambulatory ELISA NARVAEZ Facility:[facility] Start: 05-14-2025 ambulatory Elisa SERRANO Facili ty:[facility] Start: 05-14-[address] Elisa Narvaez MD -[facility] Start: 04-24-[address] Elisa Narvaez MD -[facility] Start: 04-24-2025 End: 04-24-2025 ambulatory Elisa SERRANO Facility:[facility] Start: 04-12-2025 ambulatory Elisa SERRANO Facili ty:[facility] Start: 04-12-[address] Elisa Narvaez MD [facility] Start: 03-15-2025 End: 03-15-[address] Manuel Beebe MD Work Phone: [facility] Work Phone: Start: 03-15-2025 End: 03-15-[address] Elisa Narvaez MD -[facility] Start: 03-15-[address] Elisa Narvaez MD -[facility] Start: 03-15-2025 End: 03-15-2025 ambulatory Elisa SERRANO Facility:[facility] Start: 03-13-2025 End: 03-13-[address] Manuel Beebe MD Work Phone: [facility] Work Phone: Start: 03-13-2025 End: 03-13-[address] Cosme Gonzáles MD -[facility] Work Phone: Start: 03-11-2025 End: 03-11-[address] Manuel Beebe MD Work Phone: [facility] Work Phone: Start: 03-11-2025 End: 03-11-[address] Elisa Narvaez MD -[facility] Start: 03-11-[address] 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 Elisa Narvaez MD -[facility] Start: 02-14-2025 End: 02-15-2025 Telephone encounter Merlin Loredo MD Work Phone: [facility] Comment on above: Results Start: 02-13-2025 End: 02-13-2025 Patient encounter procedure Merlin Loredo MD Work Phone: Gastroenterology Comment on above: Liver disease (Prima ry Dx) Start: 02-13-2025 End: 02-13-2025 ambulatory MERLIN LOREDO Facility:[facility] Start: 02-13-2025 End: 02-13-2025 Subsequent hospital visit by physician Us Main A21 2 Radiology Comment on above: Liver disease [K76.9 ] Start: 02-13-2025 End: 02-13-2025 ambulatory ELISA NARVAEZ Facility:[facility] Start: 01-24-2025 End: 01-24-[address] Dwayne Horton MD -[facility] Work Phone: Start: 01-24-2025 End: 01-24-2025 ambulatory Manuel Beebe Facility:[facility] Start: 01-18-2025 End: 01-18-[address] Manuel Beebe MD Work Phone: [facility] Work Phone: Start: 01-18-2025 End: 01-18-[address] Elisa Narvaez MD -[facility] Start: 01-18-2025 End: 01-18-2025 ambulatory Manuel D Talampas Facility:[facility] Start: 12-21-2024 ambulatory Manuel D Talampas Facilit y:[facility] Start: 12-21-[address] Elisa Narvaez MD -[facility] Start: 12-12-2024 End: 12-12-2024 ambulatory Injection [facility] Work Phone: Hematology/Oncology Comment on above: Prostate cancer (HCC ) (Primary Dx) Start: 12-12-2024 End: 12-12-2024 Patient encounter procedure Maye Rizzo [place] -[facility] Work Phone: Start: 12-12-2024 End: 12-12-2024 ambulatory Manuel D Talampas Facility:[facility] Start: 12-12-2024 End: 12-12-2024 ambulatory Manuel D Talampas Facility:[facility] Start: 12-12-2024 End: 12-12-[address] Cosme Gonzáles MD -[facility] Work Phone: Start: 11-23-2024 End: 11-23-[address] Elisa Narvaez MD -[facility] Start: 11-23-2024 End: 11-23-2024 ambulatory Manuel D Talampas Facility:[facility] Start: 10-26-2024 End: 10-26-[address] Elisa Narvaez MD -[facility] Start: 10-26-2024 End: 10-26-2024 ambulatory Manuel D Talampas Facility:[facility] Start: 10-22-2024 End: 10-22-2024 Telephone encounter Merlin Loredo MD Work Phone: Gastroenterology Comment on above: Orders (New lab orde rs for February app) Start: 10-22-2024 End: 10-22-[address] Elisa Narvaez MD -[facility] Start: 10-22-2024 End: 10-22-2024 ambulatory Manuel D Talampas Facility:[facility] Start: 09-28-2024 End: 09-28-2024 ambulatory Manuel D Talampas Facility:[facility] Start: 09-19-2024 End: 09-19-2024 ambulatory Injection [facility] Work Phone: Hematology/Oncology Comment on above: Prostate cancer (HCC ) (Primary Dx) Start: 09-12-2024 End: 09-12-2024 ambulatory Manuel D Talampas Facility:[facility] Start: 09-10-2024 End: 09-10-2024 ambulatory Manuel D Talampas Facility:[facility] Start: 09-05-2024 End: 09-05-2024 ambulatory Lissy Anna [...] 08-14-2024 End: 08-14-2024 Telephone encounter Nancy Fontaine RNretail pharmacy manager Comment on above: Education Of Patient /family; Appointment (Voicemail left regarding 08/22/2024 Appointment) Start: 06-20-2024 End: 06-20-2024 ambulatory Injection [facility] Work Phone: Hematology/Oncology Comment on above: Prostate cancer (HCC ) (Primary Dx) Start: 06-13-2024 End: 06-13-2024 Office outpatient new 45 minutes Maximo Watkins MD Work Phone: Orthopaedics Comment on above: Chronic right hip pa in (Primary Dx); S/P hip hemiarthroplasty Start: 2024 End: 2024 ambulatory Injection [facility] Work Phone: Hematology/Oncology Comment on above: [...] pathological fracture Start: 04-23-2024 ambulatory MANUEL BEEBE [facility] Ambulatory Start: 03-26-2024 Orders Only Kourtney Bhatia MD Work Phone: Endocrinology Comment on above: Age-related osteopor osis without current pathological fracture (Primary Dx); Prostate cancer (HCC) Start: 03-25-2024 Telephone encounter Jonnathan pugh DO Work Phone: Hematology/Oncology Comment on above: Results Start: 03-21-2024 End: 03-21-2024 Subsequent hospital visit by physician [facility] Marlena Brandon Work Phone: Radiology Comment on above: Right hip pain [M25. 551] Start: 03-21-2024 End: 03-21-2024 Patient encounter procedure Jonnathan Kothari Work Phone: Hematology/Oncology Start: 03-21-2024 End: 03-21-2024 ambulatory Injection [facility] Work Phone: Hematology/Oncology Comment on above: [...] 01-19-[address] Manuel Beebe Work Phone: [facility] Work Phone: Start: 01-19-2024 End: 01-19-[address] Manuel Beebe Work Phone: [facility] Start: 01-19-[address] Manuel gross Work Phone: [facility] Start: 01-18-2024 ambulatory Dinorah edward RN [employer] Teacher [employer] Comment on above: Community Monitoring Outreach Start: 01-11-2024 End: 01-11-[address] Manuel Beebe Work Phone: [facility] Work Phone: Start: 01-11-2024 End: 01-11-[address] Manuel Beebe Work Phone: [facility] Start: 01-11-[address] Manuel gross Work Phone: [facility] Start: 01-06-2024 End: 01-06-2024 Orders Only Kourtney Bhatia MD Work Phone: Endocrinology Comment on above: Age-related osteopor osis without current pathological fracture (Primary Dx); Prostate cancer (HCC) Start: 01-06-2024 End: 01-06-[address] Manuel Beebe Work Phone: [facility] Start: 01-06-[address] Manuel gross Work Phone: [facility] Start: 12-30-2023 End: 12-30-[address] Manuel Beebe Work Phone: [facility] Work Phone: Start: 12-30-2023 End: 12-30-[address] 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 Manuel Beebe Work Phone: [facility] Work Phone: Start: 12-06-2023 ambulatory Dinorah Fuentes Staff ord triple drum operatorBowling Teacher Management Comment on above: Community Monitoring Outreach Start: 11-14-2023 End: 11-14-[address] Manuel Beebe Work Phone: [facility] Work Phone: Start: 11-14-2023 End: 11-14-[address] Manuel Beebe Work Phone: [facility] Start: 10-19-2023 End: 10-19-[address] Manuel Beebe Work Phone: [facility] Work Phone: Start: 10-19-2023 End: 10-19-[address] Manuel Beebe Work Phone: [facility] Start: 10-13-2023 End: 10-13-[address] Manuel Beebe Work Phone: [facility] Work Phone: Start: 10-06-2023 End: 10-06-[address] Manuel Beebe Work Phone: [facility] Work Phone: Start: 09-30-2023 Telephone encounter Jonnathan pugh DO Work Phone: Hematology/Oncology Start: 09-23-2023 ambulatory Dinorah Fuentes Staff ord triple drum operatorBowling Teacher Management Comment on above: Community Monitoring Outreach Start: 09-21-2023 Chart abstracting Lillian miller historic site administrator/Oncology Comment on above: Research (Pre-Screen Research) Start: 09-14-2023 Telephone encounter Jonnathan pugh DO Work Phone: Hematology/Oncology Comment on above: Results Start: 09-02-2023 ambulatory Dinorah Fuentes Staff ord triple drum operatorBowling Teacher Management Comment on above: Community Monitoring Outreach Start: 08-22-2023 End: 08-22-[address] Manuel Beebe Work Phone: [facility] Work Phone: Start: 08-22-2023 End: 08-22-[address] Manuel Beebe Work Phone: [facility] Start: 08-22-2023 End: 08-22-2023 Dr. Manuel Beebe Work Phone: [facility] Start: 08-08-2023 End: 08-08-[address] Manuel Beebe Work Phone: [facility] Work Phone: Start: 08-08-2023 End: 08-08-[address] Manuel Beebe Work Phone: [facility] Start: 08-08-2023 End: 08-08-2023 Dr. Manuel Beebe Work Phone: [facility] Start: 08-05-2023 End: 08-05-[address] Manuel Beebe Work Phone: [facility] Work Phone: Start: 08-05-2023 End: 08-05-[address] Manuel Beebe Work Phone: [facility] Start: 08-05-2023 End: 08-05-2023 Dr. Manuel Beebe Work Phone: [facility] Start: 08-04-2023 End: 08-04-[address] Manuel Beebe Work Phone: [facility] Work Phone: Start: 08-03-2023 Telephone encounter Merlin Loredo MD Work Phone: Gastroenterology Comment on above: Orders Start: 07-21-2023 End: 07-21-[address] Manuel Beebe Work Phone: [facility] Work Phone: Start: 07-21-2023 End: 07-21-[address] Manuel Beebe Work Phone: [facility] Start: 07-21-2023 End: 07-21-2023 Dr. Manuel Beebe Work Phone: [facility] Start: 07-20-2023 ambulatory Dinorah edward triple drum operatorBowling Teacher Management Comment on above: Community Monitoring Outreach Start: 07-19-2023 End: 07-19-[address] Manuel Beebe Work Phone: [facility] Start: 07-19-2023 End: 07-19-2023 Dr. Manuel Beebe Work Phone: [facility] Start: 07-15-2023 End: 07-15-[address] Manuel Beebe Work Phone: [facility] Work Phone: Start: 07-15-2023 End: 07-15-[address] Manuel Beebe Work Phone: [facility] Start: 07-15-2023 End: 07-15-2023 Dr. Manuel Beebe Work Phone: [facility] Start: 07-12-2023 End: 07-12-[address] Manuel Beebe Work Phone: [facility] Work Phone: Start: 07-12-2023 End: 07-12-2023 Dr. Manuel Beebe Work Phone: [facility] Work Phone: Start: 07-08-2023 End: 07-08-[address] Manuel Beebe Work Phone: [facility] Work Phone: Start: 07-08-2023 End: 07-08-[address] Manuel Beebe Work Phone: [facility] Start: 07-08-2023 End: 07-08-2023 Dr. Manuel Beebe Work Phone: [facility] Start: 07-01-2023 End: 07-01-[address] Manuel Beebe Work Phone: [facility] Work Phone: Start: 07-01-2023 End: 07-01-[address] Manuel Beebe Work Phone: [facility] Start: 07-01-2023 End: 07-01-2023 Dr. Manuel Beebe Work Phone: [facility] Start: 06-27-2023 ambulatory Dinorah Martinez ord triple drum operatorBowling Teacher Management Comment on above: Community Monitoring Outreach Start: 06-26-2023 Non-patient / Non-visit Dr. Elizabeth Beebe Work Phone: [facility] Work Phone: Start: 06-26-2023 Dr. Manuel simon Work Phone: [facility] Work Phone: Start: 06-25-2023 Dr. Manuel simon Work Phone: [facility] Work Phone: Start: 06-24-2023 Dr. Manuel simon Work Phone: [facility] Work Phone: Start: 06-24-2023 Dr. Manuel simon Work Phone: [facility] Start: 06-23-2023 Dr. Manuel simon Work Phone: [facility] Start: 06-23-2023 Dr. Manuel simon Work Phone: [facility] Work Phone: Start: 06-22-2023 Dr. Manuel simon Work Phone: [facility] [facility] Work Phone: Start: 06-21-2023 End: 06-26-2023 Evaluation and management of inpatient Dr. Manuel Beebe Work Phone: [facility] Work Phone: Start: 06-21-2023 End: 06-26-2023 Dr. Manuel Beebe Work Phone: [facility] Work Phone: Start: 06-21-2023 End: 06-21-2023 Emergency department patient visit Dr. Manuel Beebe Work Phone: [facility] Work Phone: Start: 06-21-2023 End: 06-21-2023 Dr. Manuel Beebe Work Phone: [facility]Emer[facility] Work Phone: Start: 06-20-2023 Dr. Manuel simon Work Phone: [facility] Start: 06-14-2023 Dr. Manuel simon Work Phone: [facility] Start: 06-13-2023 End: 06-13-[address] Manuel Beebe Work Phone: [facility] Work Phone: Start: 06-13-2023 End: 06-13-2023 Dr. Manuel Beebe Work Phone: [facility] Start: 2023 End: 2023 Dr. Manuel Beebe Work Phone: [facility] Work Phone: Start: 06-06-2023 Dr. Manuel simon Work Phone: [facility] Start: 05-25-2023 End: 05-25-[address] Manuel Beebe Work Phone: [facility] Work Phone: Start: 05-25-2023 End: 05-25-2023 Dr. Manuel Beebe Work Phone: [facility] Start: 05-20-2023 Dr. Manuel simon Work Phone: [facility] Start: 05-18-2023 Dr. Manuel simon Work Phone: [facility] Start: 05-11-2023 Dr. Manuel simon Work Phone: [facility] Start: 05-04-2023 End: 05-04-[address] Manuel Beebe Work Phone: [facility] Work Phone: Start: 05-04-2023 End: 05-04-2023 Dr. Manuel Beebe Work Phone: [facility] Work Phone: Start: 05-03-2023 Dr. Manuel simon Work Phone: [facility] Start: 04-26-2023 Dr. Manuel simon Work Phone: [facility] Start: 04-25-2023 Non-patient / Non-visit Dr. Elizabeth Beebe Work Phone: [facility] Start: 04-25-2023 Dr. Manuel simon Work Phone: [facility] Work Phone: Start: 04-25-2023 Non-patient / Non-visit Dr. Elizabeth Beebe Work Phone: [facility] Start: 04-25-2023 Dr. Manuel simon Work Phone: [facility] Start: 04-24-2023 Non-patient / Non-visit Dr. Elizabeth Beebe Work Phone: [facility] Start: 04-24-2023 Dr. Manuel simon Work Phone: [facility] Work Phone: Start: 04-23-2023 End: 04-23-2023 Dr. Manuel Beebe Work Phone: [facility] Work Phone: Start: 04-23-2023 End: 04-25-2023 Evaluation and management of inpatient Dr. Manuel Beebe Work Phone: [facility] Start: 04-23-2023 End: 04-25-2023 Dr[facility] Start: 04-22-2023 Telephone encounter Manuel dash MD Work Phone: [facility] [place] Comment on above: Patient Update Start: 04-20-2023 ambulatory Dinorah edward triple drum operatorBowling Teacher Management Comment on above: Community Monitoring Outreach Start: 04-19-[address] Manuel gross Work Phone: [facility] Start: 04-19-2023 End: 04-19-2023 Dr. Manuel Beebe Work Phone: [facility] Start: 04-16-2023 Non-patient / Non-visit Dr. Elizabeth Beebe Work Phone: [facility] Start: 04-16-2023 Dr. Manuel simon Work Phone: [facility] Work Phone: Start: 04-16-2023 End: 04-16-2023 Dr. Manuel Beebe Work Phone: [facility] Work Phone: Start: 04-15-2023 Non-patient / Non-visit Dr. Elizabeth Beebe Work Phone: [facility] Start: 04-15-2023 Dr. Manuel simon Work Phone: [facility] Work Phone: Start: 04-14-2023 Non-patient / Non-visit Dr. Elizabeth Beebe Work Phone: [facility] Start: 04-14-2023 Dr. Maunel simon Work Phone: [facility] Work Phone: Start: 04-13-2023 Non-patient / Non-visit Dr. Elizabeth Beebe Work Phone: [facility] Start: 04-13-2023 End: 04-16-2023 Evaluation and management of inpatient Dr. Manuel Beebe Work Phone: [facility] 3 Start: 04-13-2023 End: 04-16-2023 Dr. Manuel Beebe Work Phone: [facility] Work Phone: Start: 04-13-2023 Telephone encounter Manuel dash MD Work Phone: [facility] [place] Comment on above: Patient Update Start: 04-12-2023 End: 04-12-2023 Office outpatient visit 25 minutes Olga Cavazos SOLAR SALES AMBASSADOR.DRY CELL TESTER Work Phone: [facility] [place] Comment on above: Hypotension due to d rugs (Primary Dx); Nausea; Adult failure to thrive; Type 2 diabetes mellitus with other specified complication, with long-term current use of insulin (HCC); Paroxysmal atrial fibrillation (HCC); Chronic diastolic CHF (congestive heart failure) (HCC); Parkinson's disease (HCC) Start: 04-12-2023 Non-patient / Non-visit Dr. Elizabeth Beebe Work Phone: [facility] Start: 04-12-2023 Dr. Manuel simon Work Phone: [facility] Work Phone: Start: 04-11-2023 Telephone encounter Manuel dash MD Work Phone: [facility] [place] Comment on above: Faxed to [facility] med/allison g verbal orders Start: 04-11-2023 Non-patient / Non-visit Dr. Elizabeth Beebe Work Phone: [facility] Start: 04-11-2023 Dr. Manuel simon Work Phone: [facility] Work Phone: Start: 04-10-2023 Non-patient / Non-visit Dr. Elizabeth Beebe Work Phone: [facility] Start: 04-10-2023 End: 04-12-2023 Evaluation and management of inpatient Dr. Manuel Beebe Work Phone: [facility] 3 Start: 04-10-2023 End: 04-12-[address] Manuel Beebe Work Phone: [facility] Work Phone: Start: 04-10-2023 End: 04-12-2023 Dr. Manuel Beebe Work Phone: [facility] Surgical 3 Work Phone: Start: 04-07-2023 Telephone encounter Manuel dash MD Work Phone: [facility] [place] Comment on above: Patient Request (Fozia stapleton is going to the 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 ) Start: 03-23-2023 End: 03-23-2023 Office outpatient visit 25 minutes Manuel Beebe MD Work Phone: [facility] [place] Comment on above: Controlled type 2 di [...] Start: 02-25-2023 ambulatory Dinorah Fuentes Staff ord triple drum operatorBowling Teacher Management Comment on above: Community Monitoring Outreach Start: 02-16-2023 End: 02-16-[address] Manuel Beebe Work Phone: [facility] Start: 02-16-2023 End: 02-16-2023 Dr. Manuel Beebe Work Phone: [facility] Work Phone: Start: 02-09-2023 ambulatory Dinorah Fuentes Staff ord triple drum operatorBowling Teacher Management Comment on above: Community Monitoring Outreach Start: 02-02-2023 ambulatory Dinorah Fuentes Staff ord triple drum operatorBowling Teacher Management Comment on above: Community Monitoring Outreach Start: 01-27-2023 End: 01-27-[address] Manuel Beebe Work Phone: [facility] Start: 01-27-2023 End: 01-27-2023 Dr. Manuel Beebe Work Phone: [facility] Work Phone: Start: 01-26-2023 End: 01-26-[address] Manuel Beebe Work Phone: [facility] Start: 01-26-2023 End: 01-26-2023 Dr. Manuel Beebe Work Phone: [facility] Work Phone: Start: 01-06-2023 End: 01-06-[address] Manuel Beebe Work Phone: [facility] Start: 01-06-2023 End: 01-06-[address] Manuel Beebe Work Phone: [facility] Work Phone: Start: 01-06-2023 End: 01-06-[address] Manuel Beebe Work Phone: [facility] Start: 01-04-2023 ambulatory Dinorah Fuentes Staff ord triple drum operatorBowling Teacher Management Comment on above: Community Monitoring Outreach Start: 12-30-2022 ambulatory Dinorah Fuentes Staff ord triple drum operatorBowling Teacher Management Comment on above: Community Monitoring Outreach Start: 12-23-2022 End: 12-23-[address] Manuel Beebe Work Phone: [facility] Start: 12-22-2022 Refill Manuel bond MD Work Phone: [facility] [place] Comment on above: Refill Request Start: 11-25-2022 Non-patient / Non-visit Dr. Elizabeth Beebe Work Phone: [facility] Start: 11-25-2022 End: 11-25-[address] Manuel Beebe Work Phone: [facility] Work Phone: Start: 11-25-2022 End: 11-25-[address] Manuel Beebe Work Phone: [facility] Start: 11-22-2022 ambulatory Dinorah Fuentes Staff ord triple drum operatorBowling Teacher Management Comment on above: Community Monitoring Outreach Start: 11-10-2022 End: 11-10-[address] Manuel Beebe Work Phone: [facility] Start: 10-21-2022 End: 10-21-[address] Manuel Beebe Work Phone: [facility] Work Phone: Start: 10-21-2022 End: 10-21-[address] Manuel Beebe Work Phone: [facility] Start: 10-18-2022 ambulatory Dinorah Fuentes Staff ord triple drum operatorBowling Teacher Management Comment on above: Community Monitoring Outreach Start: 10-06-2022 ambulatory Lorrie Palomo Cho pra PA-C Work Phone: Pulmonary Medicine Start: 10-04-2022 Telephone encounter Manuel dash MD Work Phone: [facility] [place] Comment on above: Orders ([employer]- do not use) Start: 09-15-2022 ambulatory Dinorah edward triple drum operatorBowling Teacher Management Comment on above: Community Monitoring Outreach Start: 09-15-2022 Refill Rustam Masterson PA-C Work Phone: Urology Comment on above: Refill Request Start: 09-14-2022 Refill Rustam Masterson PA-C Work Phone: Urology Comment on above: Refill Request Start: 09-09-2022 End: 09-09-[address] Manuel Beebe Work Phone: [facility] Start: 09-05-2022 Refill Rustam Masterson PA-C Work Phone: Urology Comment on above: Refill Request Start: 09-02-2022 End: 09-02-2022 Subsequent hospital visit by physician Main A21 3 Work Phone: Radiology Comment on above: Liver disease [K76.9 ] Start: 09-02-2022 End: 09-02-2022 Patient encounter procedure Merlin Loredo MD Work Phone: Gastroenterology Comment on above: Liver disease (Prima ry Dx) Start: 08-13-2022 ambulatory Albino Murray RN [employer] Comment on above: Community Monitoring Outreach Start: 08-11-2022 End: 08-11-[address] Manuel Beebe Work Phone: [facility] Work Phone: Start: 08-11-2022 End: 08-11-[address] Manuel Beebe Work Phone: [facility]/Neurology Start: 08-09-2022 End: 08-09-[address] Manuel Beebe Work Phone: [facility] Work Phone: Start: 08-09-2022 End: 08-09-[address] Manuel Beebe Work Phone: [facility] Start: 08-09-2022 End: 08-09-[address] Manuel Beebe Work Phone: [facility] Start: 07-21-2022 End: 07-21-[address] Manuel Beebe Work Phone: [facility] Work Phone: Start: 07-21-2022 End: 07-21-[address] Manuel Beebe Work Phone: [facility] Start: 07-20-2022 Telephone encounter Manuel dash MD Work Phone: [facility] Comment on above: Appointment Start: 07-15-2022 Telephone encounter Manuel dash MD Work Phone: [facility] [place] Comment on above: Orders (Mobility sco oter) Start: 06-23-2022 ambulatory Albino Murray RN Ambulatory [facility] Comment on above: Community Monitoring Outreach Start: 06-16-2022 Refill Munira Dickerson MD Work Phone: [facility] Comment on above: Status post hip mann arthroplasty (Primary Dx) Start: 06-15-2022 End: 06-16-2022 ambulatory MUNIRA DICKERSON [facility] Start: 06-15-2022 End: 06-15-2022 Office outpatient visit 15 minutes Munira Dickerson MD Work Phone: [facility] Comment on above: Status post hip mann arthroplasty (Primary Dx) Start: 06-14-2022 Telephone encounter Manuel dash MD Work Phone: [facility] [place] Comment on above: Orders Start: 06-07-2022 ambulatory Albino Murray RN Ambulatory [facility] Comment on above: Community Monitoring Outreach (CHF / Asthma CDM Outreach) Start: 06-07-2022 End: 06-07-2022 Emergency department patient visit Dr. Manuel Beebe Work Phone: [facility] Start: 06-03-2022 Orders Only Munira Dickerson MD Work Phone: [facility] Comment on above: Hip fracture requiri ng operative repair, right, closed, initial encounter (HCC) (Primary Dx); Status post hip hemiarthroplasty Start: 05-24-2022 End: 05-24-[address] Manuel Beebe Work Phone: [facility] Start: 05-24-2022 End: 05-24-[address] Manuel Beebe Work Phone: [facility] Start: 05-19-2022 Refill Manuel bond MD Work Phone: [facility] [place] Comment on above: Refill Request (SEE RX NOTES) Community Monitoring Outreach (CHF/ Asthma CDM Outreach) Start: 05-18-2022 End: 05-19-2022 [facility] Start: 05-18-2022 End: 05-18-2022 Office outpatient visit 15 minutes Munira Dickerson MD Work Phone: [facility] Comment on above: Hip fracture requiri ng operative repair, right, closed, initial encounter (HCC) (Primary Dx); Low back pain without sciatica, unspecified back pain laterality, unspecified chronicity Start: 05-12-2022 Telephone encounter Manuel dash MD Work Phone: [facility] [place] Comment on above: Handicap Placard Start: 05-05-2022 End: 05-06-2022 [facility] Start: 04-30-2022 Telephone encounter Manuel dash MD Work Phone: [facility] [place] Comment on above: Patient Update Start: 04-30-2022 End: 04-30-2022 Emergency department patient visit Dr. Manuel Beebe Work Phone: [facility] Start: 04-28-2022 End: 04-28-[address] Manuel Beebe Work Phone: [facility] Start: 04-27-2022 Non-patient / Non-visit Dr. Elizabeth Beebe Work Phone: [facility] Inpatient Physicians Start: 04-26-2022 Non-patient / Non-visit Dr. Elizabeth Beebe Work Phone: [facility] Inpatient Physicians Start: 04-26-2022 Orders Only Munira Dickerson MD Work Phone: [facility] Comment on above: Pain (Primary Dx) Start: 04-26-2022 Non-patient / Non-visit Dr. Elizabeth Beebe Work Phone: [facility] Start: 04-25-2022 Non-patient / Non-visit Dr. Elizabeth Beebe Work Phone: [facility] Inpatient Physicians Start: 04-25-2022 End: 04-27-2022 Evaluation and management of inpatient Dr. Manuel [facility] Start: 04-25-[address] Manuel gross [facility] Start: 04-21-2022 ambulatory Albino Murray RN [employer] Comment on above: Community Monitoring Outreach (CHF / Asthma CDM Outreach) Start: 04-16-2022 End: 04-16-2022 ambulatory Jana Lara [facility] Work Phone: [facility] Comment on above: Controlled type 2 di abetes mellitus without complication, with long-term current use of insulin (HCC) (Primary Dx) Start: 04-16-2022 End: 04-16-2022 Telemedicine consultation with patient Jana Lara [facility] Work Phone: [facility] Start: 04-13-[address] Manuel Beebe Work Phone: [facility] Oncology Start: 04-13-2022 End: 04-13-[address] Manuel Beebe Work Phone: [facility] Start: 04-06-2022 ambulatory Albino Murray RN [employer] Comment on above: Community Monitoring Outreach (CHF/ CDM Outreach ) Start: 04-06-2022 Telephone encounter Manuel dash MD Work Phone: [facility] [place] Comment on above: Home Health Orders Start: 04-01-2022 Telephone encounter Jana Lara [facility] Work Phone: [facility] Comment on above: Diabetes Start: 03-31-2022 End: 03-31-[address] Manuel Beebe Work Phone: [facility] Start: 03-30-2022 Orders Only Munira Dickerson MD Work Phone: [facility] Comment on above: Low back pain withou t sciatica, unspecified back pain laterality, unspecified chronicity (Primary Dx) Start: 03-25-2022 ambulatory Albino Murray RN [employer] Comment on above: Community Monitoring Outreach (CHF Telephonic CDM Outreach) Start: 03-23-2022 End: 03-24-2022 Orders Only Munira Dickerson MD Work Phone: [facility] Comment on above: Pain (Primary Dx) Start: 03-23-2022 End: 03-23-2022 Postop follow up visit related to original px Munira Dickerson MD Work Phone: [facility] Comment on above: Hip fracture requiri ng operative repair, right, closed, initial encounter (HCC) (Primary Dx); Low back pain without sciatica, unspecified back pain laterality, unspecified chronicity Start: 03-18-2022 Orders Only Munira Dickerson MD Work Phone: [facility] Comment on above: Pain (Primary Dx) Start: 03-17-2022 End: 03-17-[address] Manuel Beebe Work Phone: [facility] Start: 03-17-[address] Manuel Beebe Work Phone: [facility]Radiation Oncology Start: 03-15-2022 ambulatory Albino Murray RN [employer] Comment on above: Community Monitoring Outreach (CHF/ Asthma Telephonic CDM Outreach ) Start: 03-12-2022 Non-patient / Non-visit Dr. Elizabeth Beebe Work Phone: [facility] Start: 03-10-2022 End: 03-10-[address] Manuel Beebe Work Phone: [facility] Start: 03-10-2022 Non-patient / Non-visit Dr. Elizabeth Beebe Work Phone: [facility] Start: 03-03-2022 ambulatory Albino Murray RN [employer] Comment on above: Community Monitoring Outreach (CHF/ Asthma Telephonic CDM Outreach) Start: 03-03-2022 End: 03-03-[address] Manuel Beebe Work Phone: [facility] Start: 02-24-2022 Documentation procedure Ashli Chang MA [facility] Start: 02-24-2022 End: 02-24-[address] Manuel Beebe Work Phone: [facility] Start: 02-22-2022 ambulatory Albino Murray RN [employer] Comment on above: Community Monitoring Outreach (CHF/ Asthma CDM Telephonic Outreach) Start: 02-22-2022 Non-patient / Non-visit Dr. Elizabeth Beebe Work Phone: [facility] Start: 02-19-2022 Non-patient / Non-visit Dr. Elizabeth Beebe [facility] Start: 02-19-2022 Orders Only Munira Dickerson MD Work Phone: [facility] Comment on above: Hip fracture requiri ng operative repair, right, closed, initial encounter (HCC) (Primary Dx); Status post hip hemiarthroplasty Start: 02-19-2022 End: 04-14-2022 Evaluation and management of inpatient Dr. Manuel Beebe Work Phone: [facility]Trans[facility] Start: 02-12-2022 Telephone encounter Jana Lara [facility] Work Phone: [facility] Comment on above: cancelling apt/fall (in hospital) Start: 02-10-2022 End: 02-19-2022 Evaluation and management of inpatient PHYSICIAN [facility] Start: 02-10-2022 Orders Only Moshe Alanis MD Work Phone: [facility] Provider Hospitalist Start: 02-10-2022 End: 02-10-2022 Emergency department patient visit Dr. Manuel Beebe Work Phone: [facility]Emergency Department Start: 02-09-[address] Manuel Beebe Work Phone: [facility]Rad[facility] Oncology Start: 02-04-2022 ambulatory Albino Murray RN [employer] Comment on above: Community Monitoring Outreach (CHF/ Asthma CDM Outreach) Start: 02-03-2022 Telephone encounter Jana Lara [facility] Work Phone: [facility] Comment on above: Orders (Testing supp lies) Start: 02-03-2022 End: 02-03-[address] Manuel Beebe Work Phone: [facility] Start: 02-02-2022 End: 02-02-2022 Refill Manuel Beebe MD Work Phone: [facility] Comment on above: Refill Request Controlled type 2 di abetes mellitus without complication, with long-term current use of insulin (HCC) (Primary Dx); Medication management Start: 01-27-2022 End: 01-27-[address] Manuel Beebe Work Phone: [facility] Start: 01-26-2022 End: 01-26-[address] Manuel Beebe Work Phone: [facility] Start: 01-21-2022 Non-patient / Non-visit Dr. Elizabeth Beebe Work Phone: [facility] Start: 01-14-2022 End: 01-14-[address] Manuel Beebe Work Phone: [facility] Start: 01-14-2022 End: 01-14-[address] Manuel Beebe Work Phone: [facility] Start: 01-13-2022 Non-patient / Non-visit Dr. Elizabeth Beebe Work Phone: [facility] Start: 01-13-[address] Saray Beebe Work Phone: [facility] Start: 01-06-2022 End: 01-06-2022 Admission to same day surgery center Dr. Manuel Beebe Work Phone: [facility] Start: 12-21-2021 End: 12-21-[address] Manuel Beebe Work Phone: [facility] Start: 12-10-2021 End: 12-10-[address] Manuel Beebe Work Phone: [facility] [facility] Start: 11-19-2021 End: 11-19-[address] Manuel Beebe Work Phone: [facility] Start: 11-12-2021 End: 11-12-[address] Manuel Beebe Work Phone: [facility]Laboratory, Specimen Start: 05-08-2021 Telephone encounter Manuel dash MD Work Phone: [facility] [place] Comment on above: Weight Loss Start: 12-31-2013 End: 03-08-2016 Preprocedural examination done Merlin Loredo MD Work Phone: [facility] Procedures Date Procedure Procedure Detail Performing Clinician Start: 07-17-2025 Us abdominal real ti me w/image limited Merlin Loredo MD Work Phone: Start: 07-17-2025 Antibody screen JONNATHAN ACOSTA Comment on above: Order Comment: Speci men Type: BLOOD SPECIMENOrdering Facility: [facility] Address: [address] [place] [address] Performed By: #### T [id number] ####CC [facility] BLOOD BANKCLIA [id number] [place] [address] [place] Start: 02-13-2025 Us abdominal real ti me w/image limited Merlin Loredo MD Work Phone: Start: 08-28-2024 Liver elastography w /o imag w/i&r Parisa Miller APRN.[employer] Work Phone: Start: 08-28-2024 Us abdominal real [...] 01-06-2023 US scan of thyroid Dr. Manuel eBebe Work Phone: Start: 09-02-2022 End: 09-02-2022 Us [...] Author Start: 07-17-2026 Creatinine measurement Serum Creatinine [facility] Start: 03-06-2026 BP Controlled (<130/80) BP Controlled (<130/80) [facility] Start: 02-13-2026 BP Controlled (<130/80) BP Controlled (<130/80) [facility] Start: 02-13-2026 Creatinine measurement Serum Creatinine [facility] Start: 01-15-2026 End: 01-15-2026 Patient encounter procedure Radiology Comment on above: Liver disease [K76.9] 6 Month Follow Up Start: 12-17-2025 End: 02-14-2026 CBC panel - Blood by Automated count COMPLETE BLOOD COUNT Lab Routine Liver disease Expected: 12/17/2025, Expires: 02/14/2026 [facility] Comment on above: Expected: 12/17/2025, Expires: Start: 12-17-2025 End: 02-14-2026 Comprehensive metabolic 2000 panel - Serum or Plasma COMPREHENSIVE METABOLIC PANEL Lab Routine Liver disease Expected: 12/17/2025, Expires: 02/14/2026 [facility] Work Phone: Comment on above: Expected: 12/17/2025, Expires: Start: 12-17-2025 End: 02-14-2026 PT panel - Platelet poor plasma by Coagulation assay PROTHROMBIN TIME Lab Routine Liver disease Expected: 12/17/2025, Expires: 02/14/2026 [facility] Comment on above: Expected: 12/17/2025, Expires: Start: 12-17-2025 End: 02-14-2026 US Abdomen RUQ US ABD RIGHT UPPER QUADRANT Radiology Routine Liver disease Expected: 12/17/2025, Expires: 02/14/2026 [facility] Comment on above: Expected: 12/17/2025, Expires: Start: 09-05-2025 BP Controlled (<130/80) BP Controlled (<130/80) [facility] Start: 08-28-2025 BP Controlled (<130/80) BP Controlled (<130/80) [facility] Start: 08-28-2025 Creatinine measurement Serum Creatinine [facility] Start: 08-28-2025 End: 08-28-2025 Patient encounter procedure [facility] [place] Comment on above: HFrEF (heart failure with reduced ejecti on fraction) ([facility]) [I50.20] Start: 08-21-2025 End: 08-21-2025 ambulatory Marlena Rubalcava [facility] Comment on above: PSA 6MO OV/INJ &LAB TODA Y* Q6MO LUPRON/Q6MO PRO DADA/ORDERING PROV DR BHATIA/DEWAYNER* (SO)PSA Start: 08-07-2025 End: 08-07-2025 Admission to same day surgery center 08/07/2025 12:45 PM EDT - 08/07/2025 3:21 PM EDT Surgery Admitting [address] [place] [address] El Arnett MD [address] [place], [place] [id number] HERNIORRHAPHY INGUINAL INITIAL HERNIA >5 YRS REDUCIBLE (ELECTIVE) Admitting Comment on above: HERNIORRHAPHY INGUINAL INITIAL HERNIA >5 YRS REDUCIBLE (ELECTIVE) Start: 08-07-2025 End: 08-07-2025 Rpr 1st ingun hrna age 7 yrs/> reducible HERNIORRHAPHY INGUINAL INITIAL HERNIA >5 YRS REDUCIBLE (ELECTIVE) Preoperative examination Non-recurrent unilateral inguinal hernia without obstruction or gangrene 08/07/2025 12:45 PM EDT [facility] Start: 08-07-2025 Subsequent hospital visit by physician Admitting Comment on above: Preoperative examination [Z01.818], Non- recurrent unilateral inguinal hernia without obstruction or gangrene [K40.90] Start: 07-30-2025 End: 07-30-2025 Patient encounter procedure 07/30/2025 1:30 PM EDT Office Visit Pulmonary Medicine [address] [place] [address] Bakari Chaudhry MD [address] [place], [place] [id number] Comment: Pre-op eval Bob Ferraro/EDGAR verbally aware of Appts Pulmonary Medicine Comment on above: Comment: Pre-op eval Bob Ferraro/EDGAR jeong aware of Appts Start: 07-30-2025 End: 07-30-2025 Patient encounter procedure 07/30/2025 11:45 AM EDT Appointment Xray [facility] [address] [place] [address] PFT prior to Xray @ 1130 Xray [facility] Comment on above: PFT prior to Xray @ 1130 Start: 07-30-2025 End: 07-30-2025 ambulatory Pulmonary Medicine [facility] Comment on above: Xray after PFTs @ 1145 // LD Start: 07-17-2025 End: 07-17-2025 Patient encounter procedure 07/17/2025 10:55 AM EDT Office Visit Gastroenterology [address] [address] Merlin Loredo MD [address] [place], [place] [id number] Liver disease [K76.9] Gastroenterology Comment on above: Liver disease [K76.9] Start: 07-17-2025 End: 07-17-2025 Patient encounter procedure 07/17/2025 9:45 AM EDT Appointment Radiology [address] [address] Liver disease [K76.9] Radiology Comment on above: Liver disease [K76.9] Start: 07-16-2025 End: 11-30-2025 aPTT in Platelet poor plasma by Coagulation assay ACTIVATED PARTIAL THROMBOPLASTIN TIME Lab Routine Preoperative examination Non-recurrent unilateral inguinal hernia without obstruction or gangrene Abnormal coagulation profile Expected: 07/16/2025, Expires: 11/30/2025 [facility] Comment on above: Expected: 07/16/2025, Expires: Start: 07-16-2025 End: 08-15-2025 CBC panel - Blood by Automated count COMPLETE BLOOD COUNT Lab Routine Liver disease Expected: 07/16/2025, Expires: 08/15/2025 [facility] Comment on above: Expected: 07/16/2025, Expires: Start: 07-16-2025 End: 11-30-2025 CBC W Auto Differential panel - Blood COMPLETE BLOOD COUNT AND DIFFERENTIAL Lab Routine Preoperative examination Non-recurrent unilateral inguinal hernia without obstruction or gangrene Expected: 07/16/2025, Expires: 11/30/2025 [facility] Comment on above: Expected: 07/16/2025, Expires: Start: 07-16-2025 End: 11-30-2025 Comprehensive metabolic 2000 panel - Serum or Plasma [facility] Work Phone: Comment on above: Expected: 07/16/2025, Expires: Expected: 07/16/2025 , Expires: 11/30/2025 Start: 07-16-2025 End: 11-30-2025 PT panel - Platelet poor plasma by Coagulation assay [facility] Comment on above: Expected: 07/16/2025, Expires: Expected: 07/16/2025 , Expires: 11/30/2025 Start: 07-16-2025 End: 11-30-2025 TYPE AND SCREEN,30 DAY TYPE AND SCREEN,30 DAY Blood Bank Routine Preoperative examination Non-recurrent unilateral inguinal hernia without obstruction or gangrene Expected: 07/16/2025, Expires: 11/30/2025 [facility] Comment on above: Expected: 07/16/2025, Expires: Start: 07-16-2025 End: 08-15-2025 US Abdomen RUQ US ABD RIGHT UPPER QUADRANT Radiology Routine Liver disease Expected: 07/16/2025, Expires: 08/15/2025 [facility] Comment on above: Expected: 07/16/2025, Expires: Start: 07-08-2025 Influenza vaccination [facility] Start: 05-29-2025 End: 05-29-2025 Infusion Center 05/29/2025 2:00 PM EDT Infusion Center Hematology/Oncology [address] [place] [address] Wstr, Injection [facility] [address] [place] [place] [address] Q3MO LUPRON/Q6MO PROLIA/ORDERING PROV DR BHATIA/DEWAYNER* Hematology/Oncology Comment on above: Q3MO LUPRON/Q6MO PROLIA/ORDERING PROV DR BHATIA/DEWAYNER* Start: 05-01-2025 BP Controlled (<130/80) BP Controlled (<130/80) [facility] Start: 04-10-2025 Creatinine measurement Serum Creatinine [facility] Start: 03-21-2025 BP Controlled (<130/80) BP Controlled (<130/80) [facility] Start: 03-14-2025 BP Controlled (<130/80) BP Controlled (<130/80) [facility] Start: 03-13-2025 End: 03-13-2025 Follow-up encounter 03/13/2025 11:30 AM EDT Visit (SP) Office Hematology/Oncology [address] [place] [id number] Jonnathan Kothari DO [address] [place] [address] 6MO FOLLOW UP* (SCHED INJECTION SAME DAY) Hematology/Oncology Comment on above: 6MO FOLLOW UP* (SCHED INJECTION SAME DAY ) Start: 03-06-2025 End: 03-06-2025 ambulatory 03/06/2025 3:30 PM EDT Infusion Center Hematology/Oncology [address] [place] [address] Wstr, Injection [facility] [address] [place] [address] Q3MO LUPRON/MDCR* Hematology/Oncology Comment on above: Q3MO LUPRON/MDCR* Start: 03-06-2025 End: 03-06-2025 ambulatory Hematology/Oncology Comment on above: 6 MO OV/INJ TODAY* Q3MO LUPRON/OV EARLY /MDCR* Start: 02-27-2025 Covid-19 Vaccine ( season) Covid-19 Vaccine () [facility] Start: 02-27-2025 End: 02-27-2025 Patient encounter procedure Radiology Comment on above: Liver disease [K76.9] Start: 02-14-2025 Complete blood count Hemoglobin/Hematocrit [facility] Start: 02-14-2025 Creatinine measurement Serum Creatinine [facility] Start: 02-13-2025 End: 02-13-2025 Patient encounter procedure Radiology Comment on above: Liver disease [K76.9] Start: 12-22-2024 Creatinine measurement Serum Creatinine [facility] Start: 12-12-2024 End: 12-12-2024 Infusion Center 12/12/2024 2:45 PM EST Infusion Center Hematology/Oncology [address] [place] [address] Wstr, Injection [facility] [address] [place] [address] Q3MO LUPRON/MDCR PSA/Q6MO PROLIA/ORDERING PROV DR BHATIA/CLINT* - this date due to transportation Hematology/Oncology Comment on above: Q3MO LUPRON/MDCR PSA/Q6MO PROLIA/ORDERIN G PROV DR BHATIA/CLINT* - this date due to transportation Start: 12-01-2024 BP Controlled (<130/80) BP Controlled (<130/80) [facility] Start: 11-28-2024 End: 11-28-2024 Infusion Center 11/28/2024 2:00 PM [facility] Infusion Center Hematology/Oncology [address] [place] [address] Wstr, Injection Satish c [address] [place] [address] Q3MO LUPRON/MDCR PSA/Q6MO PROLIA/ORDERING PROV DR BHATIA/CLINT* - this date due to transportation Hematology/Oncology Comment on above: Q3MO LUPRON/MDCR PSA/Q6MO PROLIA/ORDERIN G PROV DR BHATIA/CLINT* - this date due to transportation Start: 11-07-2024 Advance Directive Discussion Advance Directive Discussion [facility] Start: 09-28-2024 BP Controlled (<130/80) BP Controlled (<130/80) [facility] Start: 09-19-2024 End: 09-19-2024 ambulatory 09/19/2024 3:30 PM [facility] Infusion Center Hematology/Oncology [address] [place] [address] Wstr, Injection [facility] [address] [place] [address] Q3MO LUPRON/MDCR* Hematology/Oncology Comment on above: Q3MO LUPRON/MDCR* Start: 09-05-2024 End: 09-05-2024 ambulatory [facility] Comment on above: PSA* PSA/6 MO OV/LUPRON T CAMPBELL* Q3MO LUPRON/MDCR* Start: 08-28-2024 End: 11-27-2024 CBC panel - Blood by Automated count COMPLETE BLOOD COUNT Lab Routine Liver disease Expected: 08/28/2024, Expires: 11/27/2024 [facility] Comment on above: Expected: 08/28/2024, Expires: 5 Start: 08-28-2024 End: 11-27-2024 Comprehensive metabolic 2000 panel - Serum or Plasma COMPREHENSIVE METABOLIC PANEL Lab Routine Liver disease Expected: 08/28/2024, Expires: 11/27/2024 [facility] Work Phone: Comment on above: Expected: 08/28/2024, Expires: 5 Start: 08-28-2024 End: 11-27-2024 PT panel - Platelet poor plasma by Coagulation assay PROTHROMBIN TIME Lab Routine Liver disease Expected: 08/28/2024, Expires: 11/27/2024 [facility] Comment on above: Expected: 08/28/2024, Expires: 5 Start: 08-28-2024 End: 08-28-2024 Patient encounter procedure Gastroenterology Comment on above: Liver disease [K76.9] US ABD RIGHT UPPER Q UADRANT FOLLOW UP TESTING/LI CHUNG Start: 08-28-2024 End: 08-28-2024 ambulatory [facility] Draw Station Comment on above: LABS Liver disease [K76.9 ] Start: 08-22-2024 End: 08-22-2024 Patient encounter procedure 08/22/2024 10:30 AM EDT Appointment Gastroenterology [address] [place] [address] Alfred Mariee MD [address] [place] [address] Liver disease [K76.9] Gastroenterology Comment on above: Liver disease [K76.9] Start: 08-21-2024 End: 08-21-2024 Patient encounter procedure 08/21/2024 3:30 PM EDT Office Visit Gastroenterology [address] [address] Merlin Loredo MD [address] [place] [address] FOLLOW UP TESTING/LIVER Gastroenterology Comment on above: FOLLOW UP TESTING/LIVER Start: 08-21-2024 End: 08-21-2024 ambulatory Gastroenterology Comment on above: Liver disease [K76.9] LABS Start: 08-21-2024 End: 08-21-2024 Patient encounter procedure 08/21/2024 10:30 AM EDT Appointment Radiology [address] [address] Liver disease [K76.9] Radiology Comment on above: Liver disease [K76.9] Start: 08-14-2024 End: 09-14-2024 CBC panel - Blood by Automated count COMPLETE BLOOD COUNT Lab Routine Liver disease Expected: 08/14/2024, Expires: 09/14/2024 [facility] Comment on above: Expected: 08/14/2024, Expires: Start: 08-14-2024 End: 09-14-2024 Comprehensive metabolic 2000 panel - Serum or Plasma COMPREHENSIVE METABOLIC PANEL Lab Routine Liver disease Expected: 08/14/2024, Expires: 09/14/2024 [facility] Comment on above: Expected: 08/14/2024, Expires: Start: 08-14-2024 End: 09-14-2024 EGD - THERAPEUTIC, EUS, OR TUBE INTERVENTIONS EGD - THERAPEUTIC, EUS, OR TUBE INTERVENTIONS Endoscopy Routine Liver disease Expected: 08/14/2024, Expires: 09/14/2024 [facility] Work Phone: Comment on above: Expected: 08/14/2024, Expires: Start: 08-14-2024 End: 09-14-2024 Liver ultrasound attenuation by transient elastography DDI VIBRATION CONTROLLED TRANSIENT ELASTOGRAPHY (VCTE) Endoscopy Routine Liver disease Expected: 08/14/2024, Expires: 09/14/2024 [facility] Comment on above: Expected: 08/14/2024, Expires: Start: 08-14-2024 End: 09-14-2024 PT panel - Platelet poor plasma by Coagulation assay PROTHROMBIN TIME Lab Routine Liver disease Expected: 08/14/2024, Expires: 09/14/2024 [facility] Comment on above: Expected: 08/14/2024, Expires: Start: 08-14-2024 End: 09-14-2024 US Abdomen RUQ US ABD RIGHT UPPER QUADRANT Radiology Routine Liver disease Expected: 08/14/2024, Expires: 09/14/2024 [facility] Comment on above: Expected: 08/14/2024, Expires: Start: 07-19-2024 End: 07-19-2024 Patient encounter procedure 07/19/2024 11:30 AM EDT Office Visit [facility] [address] [place] [address] Leif Mathis MD [address] [place] [address] r hip pain [facility] Comment on above: r hip pain Start: 07-08-2024 Covid-19 Vaccine ( season) Covid-19 Vaccine ( season) [facility] Start: 07-08-2024 Influenza vaccination [facility] Start: 06-20-2024 End: 06-20-2024 ambulatory 06/20/2024 10:45 AM EDT [facility] Hematology/Oncology [address] [place] [address] Wstr, Injection [facility] [address] [place] [address] Q3MO LUPRON/MDCR PSA* Hematology/Oncology Comment on above: Q3MO LUPRON/MDCR PSA* Start: 06-13-2024 End: 06-13-2024 Patient encounter procedure 06/13/2024 2:20 PM EDT Office Visit Orthopaedics [address] [place] [address] Maximo Watkins MD [address] [facility] [place] [address] RIGHT HIP PAIN Orthopaedics Comment on above: RIGHT HIP PAIN Start: 06-13-2024 End: 06-13-2024 ambulatory 06/13/2024 11:15 AM EDT Infusion Center Hematology/Oncology [address] [place] [address] Wstr, Injection [facility] [address] [place] [address] Q3MO LUPRON/MDCR* Hematology/Oncology Comment on above: Q3MO LUPRON/MDCR* Start: 2024 End: 2024 Infusion Center 2024 9:15 AM EDT Infusion Center Hematology/Oncology [address] [place] [address] Wstr, Injection [facility] [address] [place] [address] START Q? PROLIA/-?/ORDERING PROV DR BHATIA/AUTH EXP?* Hematology/Oncology Comment on above: START Q? PROLIA/11-07?/ORDERING PROV DR RUPA SHELDON/AUTH EXP?* Start: 05-28-2024 End: 05-28-2024 Patient encounter procedure 05/28/2024 3:30 PM EDT Office Visit Orthopaedics [address] [place] [address] Newton Daily MD [address] [place] [address] //POA WILL FAX RECORDS/// Orthopaedics Comment on above: //POA WILL FAX RECORDS/// Start: 05-23-2024 End: 05-23-2024 Patient encounter procedure 05/23/2024 2:40 PM EDT Office Visit Orthopaedics [address] [address] Maximo Watkins MD [address] [place] [address] RIGHT HIP PAIN Orthopaedics Comment on above: RIGHT HIP PAIN Start: 05-09-2024 End: 05-09-2024 ambulatory 05/09/2024 10:15 AM EDT Results Only [place] [address] [facility] [address] [place] [address] [place] [address] [facility] Start: 05-04-2024 End: 08-03-2024 Albumin [Mass/volume] in Serum or Plasma ALBUMIN Lab Routine Age-related osteoporosis without current pathological fracture Hypercalcemia Expected: 05/04/2024, Expires: 08/03/2024 [facility] Comment on above: Expected: 05/04/2024, Expires: Start: 05-04-2024 End: 08-03-2024 Calcium [Mass/volume] in Serum or Plasma CALCIUM, TOTAL Lab Routine Age-related osteoporosis without current pathological fracture Hypercalcemia Expected: 05/04/2024, Expires: 08/03/2024 [facility] Comment on above: Expected: 05/04/2024, Expires: Start: 05-04-2024 End: 08-03-2024 Magnesium [Mass/volume] in Serum or Plasma MAGNESIUM Lab Routine Age-related osteoporosis without current pathological fracture Hypercalcemia Expected: 05/04/2024, Expires: 08/03/2024 [facility] Comment on above: Expected: 05/04/2024, Expires: Start: 05-04-2024 End: 08-03-2024 Parathyrin.intact [Mass/volume] in Serum or Plasma PTH INTACT Lab Routine Age-related osteoporosis without current pathological fracture Hypercalcemia Expected: 05/04/2024, Expires: 08/03/2024 [facility] Comment on above: Expected: 05/04/2024, Expires: Start: 05-04-2024 End: 08-03-2024 Phosphate [Mass/volume] in Serum or Plasma PHOSPHORUS INORGANIC Lab Routine Age-related osteoporosis without current pathological fracture Hypercalcemia Expected: 05/04/2024, Expires: 08/03/2024 [facility] Comment on above: Expected: 05/04/2024, Expires: Start: 05-04-2024 End: 08-03-2024 Thyrotropin [Units/volume] in Serum or Plasma THYROID STIMULATING HORMONE Lab Routine Age-related osteoporosis without current pathological fracture Hypercalcemia Expected: 05/04/2024, Expires: 08/03/2024 [facility] Work Phone: Comment on above: Expected: 05/04/2024, Expires: Start: 05-01-2024 End: 05-01-2024 Patient encounter procedure 05/01/2024 4:20 PM EDT Office Visit Endocrinology [address] [place] [id number] Kourtney Bhatia MD [address] [place] [id number] 3 month f/u Endocrinology Comment on above: 3 month f/u Start: 04-18-2024 End: 04-18-2024 Patient encounter procedure Radiology Comment on above: Rt Hip rt hip prvs replmt n ot ccf Start: 04-12-2024 Annual PCP Team Chronic Disease Visit Annual PCP Team Chronic Disease Visit [facility] Start: 04-12-2024 BP CONTROLLED (<130/80) BP CONTROLLED (<130/80) [facility] Start: 04-02-2024 End: 07-02-2024 25-hydroxyvitamin D3 [Mass/volume] in Serum or Plasma VITAMIN D 25 HYDROXY Lab Routine Age-related osteoporosis without current pathological fracture Prostate cancer (HCC) Expected: 04/02/2024, Expires: 07/02/2024 [facility] Work Phone: Comment on above: Expected: 04/02/2024, Expires: Start: 04-02-2024 End: 07-02-2024 Calcium.ionized [Moles/volume] in Blood CALCIUM, IONIZED Lab Routine Age-related osteoporosis without current pathological fracture Prostate cancer (HCC) Expected: 04/02/2024, Expires: 07/02/2024 [facility] Comment on above: Expected: 04/02/2024, Expires: Start: 04-02-2024 End: 07-02-2024 Comprehensive metabolic 2000 panel - Serum or Plasma COMPREHENSIVE METABOLIC PANEL Lab Routine Age-related osteoporosis without current pathological fracture Prostate cancer (HCC) Expected: 04/02/2024, Expires: 07/02/2024 [facility] Comment on above: Expected: 04/02/2024, Expires: Start: 04-02-2024 End: 07-02-2024 Parathyrin related protein [Moles/volume] in Serum or Plasma PTH RELATED PEPTIDE Lab Routine Age-related osteoporosis without current pathological fracture Prostate cancer (HCC) Expected: 04/02/2024, Expires: 07/02/2024 [facility] Comment on above: Expected: 04/02/2024, Expires: Start: 04-02-2024 End: 07-02-2024 Parathyrin.intact [Mass/volume] in Serum or Plasma PTH INTACT Lab Routine Age-related osteoporosis without current pathological fracture Prostate cancer (HCC) Expected: 04/02/2024, Expires: 07/02/2024 [facility] Comment on above: Expected: 04/02/2024, Expires: Start: 03-24-2024 Covid-19 Vaccine () Covid-19 Vaccine () [facility] Start: 03-23-2024 ANNUAL PCP TEAM CHRONIC DISEASE VISIT ANNUAL PCP TEAM CHRONIC DISEASE VISIT [facility] Start: 03-23-2024 BP CONTROLLED (<130/80) BP CONTROLLED (<130/80) [facility] Start: 03-21-2024 End: 03-21-2024 ambulatory [place] [facility] Comment on above: PSA* Q3MO LUPRON/MDCR* PSA/6 MO OV/LUPRON T CAMPBELL* Start: 03-09-2024 BP CONTROLLED (<130/80) BP CONTROLLED (<130/80) [facility] Start: 03-09-2024 Creatinine measurement Serum Creatinine [facility] Start: 03-09-2024 SERUM CREATININE SERUM CREATININE [facility] Start: 02-07-2024 Colonoscopy COLONOSCOPY [facility] Start: 02-07-2024 COLORECTAL CANCER SCREENING COLORECTAL CANCER SCREENING [facility] Start: 02-07-2024 Screening for malignant neoplasm of colon [facility] Start: 01-06-2024 End: 04-06-2024 Calcium.ionized [Moles/volume] in Blood CALCIUM IONIZED BLOOD Lab Routine Age-related osteoporosis without current pathological fracture Prostate cancer (HCC) Expected: 01/06/2024, Expires: 04/06/2024 [facility] Work Phone: Comment on above: Expected: 01/06/2024, Expires: Start: 01-06-2024 End: 04-06-2024 Comprehensive metabolic 2000 panel - Serum or Plasma COMP METABOLIC PANEL Lab Routine Age-related osteoporosis without current pathological fracture Prostate cancer (HCC) Expected: 01/06/2024, Expires: 04/06/2024 [facility] Work Phone: Comment on above: Expected: 01/06/2024, Expires: 4 Start: 01-06-2024 End: 04-06-2024 Magnesium [Mass/volume] in Serum or Plasma MAGNESIUM BLD Lab Routine Age-related osteoporosis without current pathological fracture Expected: 01/06/2024, Expires: 04/06/2024 [facility] Work Phone: Comment on above: Expected: 01/06/2024, Expires: Start: 01-06-2024 End: 04-06-2024 Parathyrin.intact [Mass/volume] in Serum or Plasma PTH INTACT BLD Lab Routine Age-related osteoporosis without current pathological fracture Prostate cancer (HCC) Expected: 01/06/2024, Expires: 04/06/2024 [facility] Work Phone: Comment on above: Expected: 01/06/2024, Expires: 4 Start: 01-06-2024 End: 04-06-2024 Phosphate [Mass/volume] in Serum or Plasma PHOSPHORUS INORGANIC Lab Routine Age-related osteoporosis without current pathological fracture Expected: 01/06/2024, Expires: 04/06/2024 [facility] Work Phone: Comment on above: Expected: 01/06/2024, Expires: 4 Start: 12-31-2023 Tetanus vaccination Tetanus: Every 10yrs [facility] Start: 12-31-2023 Urine microalbumin profile [facility] Start: 12-22-2023 End: 03-22-2024 OCCUPATIONAL HEALTH EXPOSURE PROFILE/PATIENT [facility] Work Phone: Comment on above: Expected: 12/22/2023, Expires: 4 Start: 11-07-2023 Advance Directive Discussion Advance Directive Discussion [facility] Start: 11-07-2023 Behavioral Health Screening Behavioral Health Screening [facility] Start: 11-07-2023 Depression Assessment Depression Assessment [facility] Start: 10-01-2023 3 comp foot exam completed DIABETIC FOOT EXAM [facility] Start: 10-01-2023 ANNUAL PCP TEAM CHRONIC DISEASE VISIT ANNUAL PCP TEAM CHRONIC DISEASE VISIT [facility] Start: 10-01-2023 BP CONTROLLED (<130/80) BP CONTROLLED (<130/80) [facility] Start: 10-01-2023 Diabetic foot examination Diabetic Foot Exam [facility] Start: 10-01-2023 Influenza vaccination LUNG CANCER SCREENING [facility] Comment on above: Postponed from 2002 (Declined at t his time) Start: 10-01-2023 SHINGRIX VACCINE (1 of 2) SHINGRIX VACCINE (1 of 2) [facility] Comment on above: Postponed from 2002 (Declined at t his time) Start: 09-12-2023 End: 11-12-2023 ALBUMIN/CREAT RATIO RND UR ALBUMIN/CREAT RATIO RND UR Lab Routine Controlled type 2 diabetes mellitus without complication, with long-term current use of insulin (HCC) Expected: 09/12/2023 (Approximate), Expires: 11/12/2023 [facility] Work Phone: Comment on above: Expected: 09/12/2023 (Approximate), Expi res: 11/12/2023 Start: 09-12-2023 End: 10-24-2023 CBC panel - Blood by Automated count CBC Lab Routine Liver disease Expected: 09/12/2023 (Approximate), Expires: 10/24/2023 [facility] Work Phone: Comment on above: Expected: 09/12/2023 (Approximate), Expi res: 10/24/2023 Start: 09-12-2023 End: 10-24-2023 Comprehensive metabolic 2000 panel - Serum or Plasma COMP METABOLIC PANEL Lab Routine Liver disease Expected: 09/12/2023 (Approximate), Expires: 10/24/2023 [facility] Work Phone: Comment on above: Expected: 09/12/2023 (Approximate), Expi res: 10/24/2023 Start: 09-12-2023 End: 11-12-2023 Hemoglobin A1c in Blood HGB A1C Lab Routine Controlled type 2 diabetes mellitus without complication, with long-term current use of insulin (HCC) Essential hypertension, benign Expected: 09/12/2023 (Approximate), Expires: 11/12/2023 [facility] Work Phone: Comment on above: Expected: 09/12/2023 (Approximate), Expi res: 11/12/2023 Start: 09-12-2023 End: 11-12-2023 Lipid 1996 panel - Serum or Plasma LIPID PANEL BASIC Lab Routine Controlled type 2 diabetes mellitus without complication, with long-term current use of insulin (HCC) Essential hypertension, benign Expected: 09/12/2023 (Approximate), Expires: 11/12/2023 [facility] Work Phone: Comment on above: Expected: 09/12/2023 (Approximate), Expi res: 11/12/2023 Start: 09-12-2023 End: 10-24-2023 PT panel - Platelet poor plasma by Coagulation assay PROTHROMBIN TIME/PT Lab Routine Liver disease Expected: 09/12/2023 (Approximate), Expires: 10/24/2023 [facility] Work Phone: Comment on above: Expected: 09/12/2023 (Approximate), Expi res: 10/24/2023 Start: 09-12-2023 End: 10-24-2023 US ABD RIGHT UPPER QUADRANT US ABD RIGHT UPPER QUADRANT Radiology Routine Liver disease Expected: 09/12/2023 (Approximate), Expires: 10/24/2023 [facility] Work Phone: Comment on above: Expected: 09/12/2023 (Approximate), Expi res: 10/24/2023 Start: 09-02-2023 BP CONTROLLED (<130/80) BP CONTROLLED (<130/80) [facility] Start: 07-08-2023 Covid-19 Vaccine () Covid-19 Vaccine () [facility] Start: 07-08-2023 Influenza vaccination [facility] Start: 06-27-2023 [facility] Start: 06-26-2023 Patient discharge [facility] Start: 06-23-2023 Hemoglobin A1c measurement HbA1C [facility] Start: 06-23-2023 Hemoglobin A1c/Hemoglobin.total in Blood HBA1C [facility] Start: 06-23-2023 Consultation [facility] Start: 06-22-2023 Referral to occupational therapist [facility] Start: 06-22-2023 Referral to service [facility] Start: 06-22-2023 Verification routine [facility] Start: 06-21-2023 Assessment of risk of venous thromboembolism [facility] Start: 06-21-2023 Care regimes management [facility] Start: 06-21-2023 Insertion of catheter into peripheral vein [facility] Start: 06-21-2023 Notification of physician [facility] Start: 06-21-2023 Providing care according to standard [facility] Start: 06-21-2023 Referral to service [facility] Start: 06-21-2023 [facility] Start: 06-21-2023 Following clinical pathway protocol [facility] Start: 06-21-2023 Admission procedure [facility] Start: 04-28-2023 ANNUAL PCP TEAM CHRONIC DISEASE VISIT ANNUAL PCP TEAM CHRONIC DISEASE VISIT [facility] Start: 04-28-2023 BP CONTROLLED (<130/80) BP CONTROLLED (<130/80) [facility] Start: 04-25-2023 Patient discharge [facility] Start: 04-24-2023 End: 04-25-2023 [facility] Start: 04-23-2023 Following clinical pathway protocol [facility] Start: 04-23-2023 Assessment of risk of venous thromboembolism [facility] Start: 04-23-2023 Insertion of catheter into peripheral vein [facility] Start: 04-23-2023 Measuring intake and output [facility] Start: 04-23-2023 Oxygen therapy [facility] Start: 04-23-2023 Providing care according to standard [facility] Start: 04-23-2023 Provision of activity privileges [facility] Start: 04-23-2023 Referral to occupational therapist [facility] Start: 04-23-2023 Referral to service [facility] Start: 04-23-2023 [facility] Start: 04-23-2023 Pelvis X-ray Pelvis 1 or 2 Views [facility] Start: 04-23-2023 XR Pelvis 1 or 2 Views [facility] Start: 04-23-2023 Verification routine [facility] Start: 04-23-2023 Admission procedure [facility] Start: 04-23-2023 CT angiography of chest with contrast CTA Chest W/WO Contrast [facility] Start: 04-23-2023 CTA Chest vessels WO and W contrast IV [facility] Start: 04-23-2023 [facility] Start: 04-19-2023 Blood chemistry [facility] Start: 04-18-2023 Blood chemistry [facility] Start: 04-17-2023 Blood chemistry [facility] Start: 04-16-2023 Patient discharge [facility] Start: 04-16-2023 Blood chemistry [facility] Start: 04-15-2023 Blood chemistry [facility] Start: 04-14-2023 Blood chemistry [facility] Start: 04-13-2023 Ambulation without limitation [facility] Start: 04-13-2023 Assessment of risk of venous thromboembolism [facility] Start: 04-13-2023 Care regimes management [facility] Start: 04-13-2023 Insertion of catheter into peripheral vein [facility] Start: 04-13-2023 Measuring intake and output [facility] Start: 04-13-2023 Notification of physician [facility] Start: 04-13-2023 Oxygen therapy [facility] Start: 04-13-2023 Providing care according to standard [facility] Start: 04-13-2023 Referral to occupational therapist [facility] Start: 04-13-2023 Referral to service [facility] Start: 04-13-2023 Following clinical pathway protocol [facility] Start: 04-13-2023 End: 04-13-2023 [facility] Start: 04-13-2023 Verification routine [facility] Start: 04-13-2023 Admission procedure [facility] Start: 04-13-2023 [facility] Start: 04-13-2023 Blood chemistry [facility] Start: 04-12-2023 Patient discharge [facility] Start: 04-11-2023 Referral to service [facility] Start: 04-10-2023 End: 04-11-2023 [facility] Start: 04-10-2023 Following clinical pathway protocol [facility] Start: 04-10-2023 Ambulation without limitation [facility] Start: 04-10-2023 Assessment of risk of venous thromboembolism [facility] Start: 04-10-2023 Care regimes management [facility] Start: 04-10-2023 Inhalation therapy procedure [facility] Start: 04-10-2023 Insertion of catheter into peripheral vein [facility] Start: 04-10-2023 Measuring intake and output [facility] Start: 04-10-2023 Oxygen therapy [facility] Start: 04-10-2023 Providing care according to standard [facility] Start: 04-10-2023 Provision of activity privileges [facility] Start: 04-10-2023 Referral to occupational therapist [facility] Start: 04-10-2023 Referral to service [facility] Start: 04-10-2023 Admission procedure [facility] Start: 04-10-2023 Emergency dept visit high severity&threat funcj [facility] Start: 04-10-2023 Iv infusion hydration initial 31 min-1 hour [facility] Start: 03-31-2023 Hemoglobin A1c/Hemoglobin.total in Blood HBA1C [facility] Start: 01-29-2023 COVID-19 VACCINE (6 - Pfizer series) COVID-19 VACCINE (6 - Pfizer series) [facility] Start: 01-12-2023 ANNUAL PCP TEAM CHRONIC DISEASE VISIT ANNUAL PCP TEAM CHRONIC DISEASE VISIT [facility] Start: 12-23-2022 Patient referral [facility] Work Phone: Start: 11-07-2022 ADVANCE DIRECTIVE DISCUSSION ADVANCE DIRECTIVE DISCUSSION [facility] Start: 11-07-2022 DEPRESSION ASSESSMENT DEPRESSION ASSESSMENT [facility] Start: 10-28-2022 Hemoglobin A1c/Hemoglobin.total in Blood HBA1C [facility] Start: 09-25-2022 ANNUAL PCP TEAM CHRONIC DISEASE VISIT ANNUAL PCP TEAM CHRONIC DISEASE VISIT [facility] Start: 08-09-2022 Serum immunofixation [facility] Work Phone: Start: 08-09-2022 Urine immunofixation [facility] Work Phone: Start: 07-10-2022 Hemoglobin A1c measurement A1C [facility] Start: 07-08-2022 Influenza vaccination [facility] Start: 06-25-2022 COVID-19 Vaccine (5 - Booster for Pfizer series) COVID-19 Vaccine (5 - Booster for Pfizer series) [facility] Start: 06-15-2022 End: 06-15-2022 Patient encounter procedure 06/15/2022 Office Visit Orthopedic Surgery Munira Dickerson MD [address] [place] [address] [facility] Orthopedic and Sports [facility] Start: 05-24-2022 [place] and lambda light chains [facility] Work Phone: Start: 05-24-2022 Thiamine measurement [facility] Work Phone: Start: 05-11-2022 End: 05-11-2022 Patient encounter procedure 05/11/2022 Office Visit Orthopedic Surgery Munira Dickerson MD [address] [place] [address] [facility] Orthopedic [facility] Start: 05-05-2022 End: 05-05-2022 Patient encounter procedure 05/05/2022 Appointment Radiology Munira Dickerson MD [address] [place] [address] [facility] Start: 05-04-2022 End: 05-04-2022 Patient encounter procedure 05/04/2022 Office Visit Orthopedic Surgery Munira Dickerson MD [address] [place] [address] [facility] Orthopedic and Sports Medicine Start: 04-27-2022 Patient discharge [facility] Work Phone: Start: 04-26-2022 Referral to occupational therapist [facility] Work Phone: Start: 04-26-2022 Referral to service [facility] Work Phone: Start: 04-26-2022 Oxygen therapy [facility] Work Phone: Start: 04-25-2022 Assessment of risk of venous thromboembolism [facility] Work Phone: Start: 04-25-2022 Care regimes management [facility] Work Phone: Start: 04-25-2022 Elevation of affected extremity [facility] Work Phone: Start: 04-25-2022 Insertion of catheter into peripheral vein [facility] Work Phone: Start: 04-25-2022 Measuring intake and output [facility] Work Phone: Start: 04-25-2022 Notification of physician [facility] Work Phone: Start: 04-25-2022 Patient education [facility] Work Phone: Start: 04-25-2022 Providing care according to standard [facility] Work Phone: Start: 04-25-2022 Provision of activity privileges [facility] Work Phone: Start: 04-25-2022 [facility] Work Phone: Start: 04-25-2022 Following clinical pathway protocol [facility] Work Phone: Start: 04-25-2022 Admission procedure [facility] Work Phone: Start: 04-20-2022 COVID-19 VACCINE (5 - Booster for Pfizer series) COVID-19 VACCINE (5 - Booster for Pfizer series) [facility] Start: 04-15-2022 Development of care plan [facility] Work Phone: Start: 04-14-2022 Patient discharge [facility] Work Phone: Start: 04-13-2022 Oxygen therapy [facility] Work Phone: Start: 04-09-2022 Hemoglobin A1c measurement A1C [facility] Start: 04-09-2022 Hemoglobin A1c/Hemoglobin.total in Blood HBA1C [facility] Start: 04-03-2022 3 comp foot exam completed DIABETIC FOOT EXAM [facility] Start: 04-03-2022 Adult depression screening assessment DEPRESSION SCREENING [facility] Start: 04-03-2022 SHINGRIX VACCINE (1 of 2) SHINGRIX VACCINE (1 of 2) [facility] Comment on above: Postponed from 2002 (Declined at t his time) Start: 04-01-2022 Referral to service [facility] Work Phone: Start: 03-31-2022 Development of care plan [facility] Work Phone: Start: 03-31-2022 Administration of blood product [facility] Work Phone: Start: 03-31-2022 [facility] Work Phone: Start: 03-30-2022 Administration of blood product [facility] Work Phone: Start: 03-26-2022 Hepatitis B surface antibody level LDL CHOLESTEROL [facility] Start: 03-24-2022 [facility] Work Phone: Start: 03-23-2022 End: 03-23-2022 Patient encounter procedure 03/23/2022 Office Visit Orthopedic Surgery Viau, Munira Jerrod, MD [address] [place] [address] [facility] Orthopedic and Sports Medicine Start: 03-19-2022 Speech therapy management [facility] Work Phone: Start: 03-18-2022 Introduction of urinary catheter [facility] Work Phone: Start: 03-18-2022 [facility] Work Phone: Start: 03-17-2022 End: 03-17-2022 Developing a treatment plan [facility] Work Phone: Start: 03-16-2022 [facility] Work Phone: Start: 03-16-2022 [facility] Work Phone: Start: 03-11-2022 Consultation for pain [facility] Work Phone: Start: 03-02-2022 Following clinical pathway protocol [facility] Work Phone: Start: 03-01-2022 End: 03-01-2022 Patient encounter procedure 03/01/2022 Office Visit Orthopedic Surgery Munira Dickerson MD [address] [place] [address] [facility] Orthopedic and Sports Medicine Start: 02-25-2022 [facility] Work Phone: Start: 02-24-2022 Skin care [facility] Work Phone: Start: 02-22-2022 [facility] Work Phone: Start: 02-20-2022 Speech therapy management [facility] Work Phone: Start: 02-20-2022 Seizure precautions [facility] Work Phone: Start: 02-19-2022 Patient referral to dietitian [facility] Work Phone: Start: 02-19-2022 Development of care plan [facility] Work Phone: Start: 02-19-2022 Developing a treatment plan [facility] Work Phone: Start: 02-19-2022 Speech therapy assessment [facility] Work Phone: Start: 02-19-2022 Admission procedure [facility] Work Phone: Start: 02-19-2022 Measuring intake and output [facility] Work Phone: Start: 02-19-2022 Patient referral to dietitian [facility] Work Phone: Start: 02-19-2022 Referral to occupational therapist [facility] Work Phone: Start: 02-19-2022 Referral to service [facility] Work Phone: Start: 02-19-2022 Vital signs measurements [facility] Work Phone: Start: 02-19-2022 [facility] Work Phone: Start: 02-19-2022 Provision of activity privileges [facility] Work Phone: Start: 02-10-2022 Bacteria identified in Blood by Culture Blood Culture [facility] Work Phone: Start: 02-05-2022 COVID-19 VACCINE (4 - Booster for Pfizer series) COVID-19 VACCINE (4 - Booster for Pfizer series) [facility] Start: 01-06-2022 Anesthesia anorectal procedure ANESTH ANORECTAL SURGERY [facility] Work Phone: Start: 01-06-2022 Plmt interstitial dev radiat tx prostate 1/mult PLACE RT DEVICE/MARKER PROS [facility] Work Phone: Start: 01-06-2022 Transperineal plmt biodegradable matrl 1/cloth designer njx TPRNL PLMT BIODEGRDABL MATRL [facility] Work Phone: Start: 01-06-2022 Ambulation without limitation [facility] Work Phone: Start: 01-06-2022 Medication education [facility] Work Phone: Start: 01-06-2022 Patient discharge [facility] Work Phone: Start: 01-06-2022 Taking patient vital signs [facility] Work Phone: Start: 01-06-2022 [facility] Work Phone: Start: 01-05-2022 COVID-19 Vaccine (4 - Booster for Pfizer series) COVID-19 Vaccine (4 - Booster for Pfizer series) [facility] Start: 11-07-2021 ADVANCE DIRECTIVE DISCUSSION ADVANCE DIRECTIVE DISCUSSION [facility] Start: 11-07-2021 DEPRESSION ASSESSMENT DEPRESSION ASSESSMENT [facility] Start: 11-06-2020 Hepatitis B screening URINE ALBUMIN:CREATININE RATIO [facility] Start: 08-23-2017 Glaucoma screening Dilated Retinal Exam [facility] Start: 08-23-2017 Hepatitis C antibody, confirmatory test DILATED RETINAL EXAM [facility] Start: 2017 Fall risk assessment Falls Risk Assessment [facility] Start: 12-08-2013 Medicare Annual Wellness Visit Medicare Annual Wellness Visit [facility] Start: 2012 RSV Vaccine (1 - 1-dose 60+ series) RSV Vaccine (1 - 1-dose 60+ series) [facility] Start: 2012 RSV Vaccine (1 - Risk 60-74 years 1-dose series) RSV Vaccine (1 - Risk 60-74 years 1-dose series) [facility] Start: 2002 Influenza vaccination LUNG CANCER SCREENING [facility] Start: 2002 Screening for malignant neoplasm of colon [facility] Start: 2002 Screening for malignant neoplasm of lung Lung Cancer Screening [facility] Start: 2002 SHINGRIX VACCINE (1 of 2) SHINGRIX VACCINE (1 of 2) [facility] Start: 1997 COLOGUARD (FIT-DNA) COLOGUARD (FIT-DNA) [facility] Start: [address] COLONOGRAPHY [facility] Start: 1997 FECAL OCCULT BLOOD FECAL OCCULT BLOOD [facility] Start: 1997 Screening for malignant neoplasm of colon [facility] Start: 1997 SIGMOIDOSCOPY SIGMOIDOSCOPY [facility] Start: 1971 Administration of herpes zoster vaccine Zoster Vaccines (1 of 2) [facility] Start: 1971 SHINGRIX VACCINE (1 of 2) SHINGRIX VACCINE (1 of 2) [facility] Start: 1970 Anxiety Screening Anxiety Screening [facility] Start: 1970 BP CONTROLLED (<130/80) [facility] Start: 1970 Depression Screening Depression Screening [facility] Start: 1970 Hepatitis C screening Hepatitis C Screening [facility] Start: 1964 Depression screening using PHQ-9 (Patient Health Questionnaire 9) score Depression Screening (PHQ-2/9) [facility] Start: 1962 Diabetic foot examination Foot Exam [facility] Start: 1962 Microalbumin measurement, urine, quantitative Urine Microalbumin [facility] Start: 1962 Ophthalmic examination and evaluation Ophthalmology Exam [facility] Start: 1958 PNEUMOCOCCAL: 65+ (1 - PCV) PNEUMOCOCCAL: 65+ (1 - PCV) [facility] Start: 1955 History and physical examination, annual for health maintenance Wellness Visit [facility] Start: 1952 Prostate specific antigen measurement PSA Level [facility] Start: 1952 Screening for malignant neoplasm of colon [facility] Albumin [Moles/volum e] in Serum or Plasma [facility] Work Phone: Albumin/Globulin ratio [facility] Work Phone: Anion gap measurement [facility] Ankle brachial press ure index [facility] Work Phone: BUN/Creatinine ratio [facility] Calcium [Mass/volume ] in Serum or Plasma [facility] Carbon dioxide, tota l [Moles/volume] in Serum or Plasma [facility] End: 09-02-2023 CBC panel - Blood by Automated count CBC Lab Routine Liver disease Every 6 months for 2 Occurrences starting 09/02/2022 until 09/02/2023 [facility] Work Phone: Comment on above: Every 6 months for 2 Occurrences startin g 09/02/2022 until 09/02/2023 Chloride [Moles/volu me] in Serum or Plasma [facility] End: 09-02-2023 Comprehensive metabolic 2000 panel - Serum or Plasma COMP METABOLIC PANEL Lab Routine Liver disease Every 6 months for 2 Occurrences starting 09/02/2022 until 09/02/2023 [facility] Work Phone: Comment on above: Every 6 months for 2 Occurrences startin g 09/02/2022 until 09/02/2023 Creatinine [Moles/volume] in Serum or Plasma [facility] CT Lumbar spine [facility] Work Phone: CT Unspecified body region [facility] Work Phone: End: 05-17-2026 ECG COMPLETE ECG COMPLETE ECG Routine Preoperative examination Non-recurrent unilateral inguinal hernia without obstruction or gangrene 1 Occurrences starting 05/17/2025 until 05/17/2026 [facility] Comment on above: 1 Occurrences starting 05/17/2025 until 05/17/2026 Electrophoresis: [id number] [facility] Work Phone: Electrophoresis: teddy ma globulin [facility] Work Phone: Globulin measurement [facility] Work Phone: Glucose [Mass/volume ] in Serum or Plasma [facility] Hematocrit [Volume Fraction] of Blood [facility] Hematocrit [Volume Fraction] of Blood [facility] Hematocrit [Volume Fraction] of Blood [facility] Hematocrit [Volume Fraction] of Blood [facility] Hemoglobin [Mass/volume] in Blood [facility] Hemoglobin [Mass/volume] in Blood [facility] Hemoglobin [Mass/volume] in Blood [facility] Hemoglobin [Mass/volume] in Blood [facility] IgA [Mass/volume] in Serum or Plasma [facility] Work Phone: IgG [Mass/volume] in Serum or Plasma [facility] Work Phone: IgM [Mass/volume] in Serum or Plasma [facility] Work Phone: [place]/lambda light chain ratio [facility] Work Phone: Lambda light chains.free [Mass/volume] in Serum or Plasma [facility] Work Phone: Laparoscopy surg rpr initial inguinal hernia LAPAROSCOPY SURGICAL REPAIR INITIAL INGUINAL HERNIA W/ MESH Preoperative examination Non-recurrent unilateral inguinal hernia without obstruction or gangrene [facility] Leukocytes [#/volume ] in Blood [facility] Leukocytes [#/volume ] in Blood [facility] Leukocytes [#/volume ] in Blood [facility] Leukocytes [#/volume ] in Blood [facility] Magnesium [Mass/volu me] in Serum or Plasma [facility] Mean corpuscular hemoglobin concentration determination [facility] Mean corpuscular hemoglobin concentration determination [facility] Mean corpuscular hemoglobin concentration determination [facility] Mean corpuscular hemoglobin concentration determination [facility] Mean corpuscular hemoglobin determination [facility] Mean corpuscular hemoglobin determination [facility] Mean corpuscular hemoglobin determination [facility] Mean corpuscular hemoglobin determination [facility] Measurement of renal function [facility] End: 03-30-2023 MRI of lumbar spine without contrast MR Lumbar Spine Without Contrast Imaging Routine Low back pain without sciatica, unspecified back pain laterality, unspecified chronicity 1 Occurrences starting 03/30/2022 until 03/30/2023 [facility] Work Phone: Comment on above: 1 Occurrences starting 03/30/2022 until 03/30/2023 Natriuretic peptide B NATRIURETI C PEPTID B/O Lab Routine Preoperative examination Ordered: 07/17/2025 [facility] Work Phone: Comment on above: Ordered: 07/17/[address] [facility] Neutrophil count [facility] Neutrophil count [facility] Neutrophil count [facility] Neutrophil percent differential count [facility] Neutrophil percent differential count [facility] Neutrophil percent differential count [facility] Neutrophil percent differential count [facility] Patient Education [facility] Work Phone: Patient referral [facility] Work Phone: Platelets [#/volume] in Blood [facility] Platelets [#/volume] in Blood [facility] Platelets [#/volume] in Blood [facility] Platelets [#/volume] in Blood [facility] Potassium [Moles/volume] in Serum or Plasma [facility] End: 12-19-2024 Prostate specific Ag [Mass/volume] in Serum or Plasma PSA/PROSTSPECAG DIAG Lab Routine Prostate cancer (HCC) 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) Every 3 months for 4 Occurrences starting 12/20/2023 until 12/19/2024 [facility] Work Phone: Comment on above: Every 3 months for 4 Occurrences startin g 12/20/2023 until 12/19/2024 Prostate specific antigen measurement [facility] Work Phone: Protein electrophore sis panel - Serum or Plasma [facility] Work Phone: End: 09-02-2023 PT panel - Platelet poor plasma by Coagulation assay PROTHROMBIN TIME/PT Lab Routine Liver disease Every 6 months for 2 Occurrences starting 09/02/2022 until 09/02/2023 [facility] Work Phone: Comment on above: Every 6 months for 2 Occurrences startin g 09/02/2022 until 09/02/2023 Red blood cell count [facility] Red blood cell count [facility] Red blood cell count [facility] Red blood cell count [facility] Red cell distributio n width determination [facility] Red cell distributio n width determination [facility] Red cell distributio n width determination [facility] Red cell distributio n width determination [facility] REFER FOR ADMIT INTERVIEW REFER FOR ADMIT INTERVIEW Procedures Routine Preoperative examination Non-recurrent unilateral inguinal hernia without obstruction or gangrene Ordered: 05/17/2025 [facility] Work Phone: Comment on above: Ordered: 05/17/2025 Serum protein electrophoresis [facility] Work Phone: SIX MINUTE WALK SIX MINUTE WALK PFT Routine Primary pulmonary hypertension (HCC) Ordered: 07/17/2025 [facility] Work Phone: Comment on above: Ordered: 07/17/2025 Sodium [Moles/volume ] in Serum or Plasma [facility] Thiamine measurement [facility] Work Phone: Urea nitrogen [Mass/volume] in Serum or Plasma [facility] Urine immunofixation [facility] Work Phone: Urine kappa light ch ain measurement [facility] Work Phone: End: 09-27-2025 US Abdomen RUQ US ABD RIGHT UPPER QUADRANT Radiology Routine Liver disease 1 Occurrences starting 08/28/2024 until 09/27/2025 [facility] Comment on above: 1 Occurrences starting 08/28/2024 until 09/27/2025 End: 10-02-2023 Us abdominal real time w/image limited US ABD RT UPPER QUADRANT Radiology Routine Liver disease Every 6 months for 4 Occurrences starting 09/02/2022 until 10/02/2023, 1 completed [facility] Work Phone: Comment on above: Every 6 months for 4 Occurrences startin g 09/02/2022 until 10/02/2023, 1 completed US Carotid arteries [facility] Work Phone: End: 02-19-2023 XR Hip Right 2-3 Views (Routine) XR Hip Right 2-3 Views (Routine) Imaging Routine Hip fracture requiring operative repair, right, closed, initial encounter (HCC) Status post hip hemiarthroplasty 1 Occurrences starting 02/19/2022 until 02/19/2023 [facility] Work Phone: Comment on above: 1 Occurrences starting 02/19/2022 until 02/19/2023 End: 03-18-2023 XR Hip Right 2-3 Views (Routine) XR Hip Right 2-3 Views (Routine) Imaging Routine Pain 1 Occurrences starting 03/18/2022 until 03/18/2023 [facility] Work Phone: Comment on above: 1 Occurrences starting 03/18/2022 until 03/18/2023 End: 04-26-2023 XR Hip Right With Pelvis 2-3 Views (Routine) XR Hip Right With Pelvis 2-3 Views (Routine) Imaging Routine Pain 1 Occurrences starting 04/26/2022 until 04/26/2023 [facility] Work Phone: Comment on above: 1 Occurrences starting 04/26/2022 until 04/26/2023 End: 06-03-2023 XR Hip Right With Pelvis 2-3 Views (Routine) XR Hip Right With Pelvis 2-3 Views (Routine) Imaging Routine Hip fracture requiring operative repair, right, closed, initial encounter (HCC) Status post hip hemiarthroplasty 1 Occurrences starting 06/03/2022 until 06/03/2023 [facility] Work Phone: Comment on above: 1 Occurrences starting 06/03/2022 until 06/03/2023 End: 03-23-2023 XR Lumbar Spine 2-3 Views (Standard) XR Lumbar Spine 2-3 Views (Standard) Imaging Routine Pain 1 Occurrences starting 03/23/2022 until 03/23/2023 [facility] Work Phone: Comment on above: 1 Occurrences starting 03/23/2022 until 03/23/2023 XR Lumbar Spine 2-3 Views (Standard) XR Lumbar Spine 2-3 Views (Standard) Imaging Routine Pain 03/23/2022 3:05 PM EDT [facility] XR Pelvis and Hip - right AP and Lateral frog XR HIP GENERAL 3V PELV/AP/LAT RIGHT Radiology Routine Right hip pain Prostate cancer (HCC) 03/21/2024 1:02 PM EDT [facility] Work Phone: End: 04-20-2025 XR Pelvis and Hip - right AP and Lateral frog XR HIP GENERAL 3V PELV/AP/LAT RIGHT Radiology Routine Right hip pain Prostate cancer (HCC) 1 Occurrences starting 03/21/2024 until 04/20/2025 [facility] Work Phone: Comment on above: 1 Occurrences starting 03/21/2024 until 04/20/2025 [facility] Immunizations Immunization Date Immunization Notes Care Provider [facility] 10-08-2022 influenza, injectabl e, quadrivalent, preservative free Dr. Manuel Beebe Work Phone: [facility] 10-08-2022 influenza, seasonal, injectable Dr. Manuel Beebe Work Phone: [facility] 10-08-2022 influenza virus vaccine, unspecified formulation Dinorah Posada RN [facility] 10-01-2022 COVID-19 booster vaccine, age 12+ yr, bivalent (PFIZER-BIONTECH) Manuel Beebe MD Work Phone: [facility] 10-01-2022 influenza, high-dose , quadrivalent vaccine (FLUZONE HIGH DOSE QUADRIVALENT) Manuel Beebe MD Work Phone: [facility] 02-23-2022 Covid (Pfizer) Dr. Manuel greene Work Phone: [facility] 10-07-2021 COVID-19 vaccine, ag e 12+ yr (PFIZER-BIONTECH - PURPLE TOP) Manuel Beebe MD Work Phone: [facility] Work Phone: 09-25-2021 Influenza, high dose seasonal Dr. Manuel Beebe MD Work Phone: [facility] 09-25-2021 influenza, high dose seasonal, preservative-free Dr. Manuel Beebe Work Phone: [facility] 09-25-2021 influenza, high-dose , quadrivalent vaccine (FLUZONE HIGH DOSE QUADRIVALENT) Manuel Beebe MD Work Phone: [facility] 03-26-2021 COVID-19 vaccine, ag e 12+ yr (PFIZER-BIONTECH - PURPLE TOP) Manuel Beebe MD Work Phone: [facility] 03-05-2021 COVID-19 vaccine, ag e 12+ yr (PFIZER-BIONTECH - PURPLE TOP) Manuel Beebe MD Work Phone: [facility] 08-12-2020 influenza, high dose seasonal, preservative-free Manuel Beebe MD Work Phone: [facility] Work Phone: 04-02-2020 hepatitis A and hepatitis B vaccine Manuel Beebe MD Work Phone: [facility] Work Phone: 09-24-2019 hepatitis A and hepatitis B vaccine Manuel Beebe MD Work Phone: [facility] Work Phone: 08-23-2019 hepatitis A and hepatitis B vaccine Manuel Beebe MD Work Phone: [facility] Work Phone: 08-02-2019 influenza, high dose seasonal, preservative-free Manuel Beebe MD Work Phone: [facility] 02-13-2019 pneumococcal polysaccharide vaccine, 23 valent Manuel Beebe MD Work Phone: [facility] 09-07-[address] Manuel Beebe Work Phone: [facility] 08-28-2018 influenza, high dose seasonal, preservative-free Manuel Beebe MD Work Phone: [facility] Work Phone: 10-07-2017 pneumococcal conjuga te vaccine, 13 valent Manuel Beebe MD Work Phone: [facility] 06-19-2017 influenza, high dose seasonal, preservative-free Manuel Beebe MD Work Phone: [facility] Work Phone: 08-11-2016 influenza, seasonal, injectable Manuel Beebe MD Work Phone: [facility] Work Phone: 07-24-2015 influenza virus vaccine, unspecified formulation Manuel Beebe MD Work Phone: [facility] 08-15-2014 influenza virus vaccine, unspecified formulation Manuel Beebe MD Work Phone: [facility] 12-31-2013 pneumococcal polysaccharide vaccine, 23 valent Manuel Beebe MD Work Phone: [facility] 12-31-2013 tetanus toxoid, redu osei diphtheria toxoid, and acellular pertussis vaccine, adsorbed Manuel Beebe MD Work Phone: [facility] NEGATED: Highlighted row has not occurred!09-25-2021 COVID-19 vaccine, age 12+ yr (PFIZER-[employer] - PURPLE TOP) Manuel Beebe MD Work Phone: [facility] Payers Date Payer Category Payer Self-pay [id number] 2024 Medicaid [id number] 2023 Medicaid [id number] 2023 Medicaid [id number] 2017 Private Health Insurance AETNA A ETNA MEDICARE SUPPLEMENT [id number] 2017-Present [phone] [address] [address] [place] [address] Indemnity [id number]. [id number] 2017 Private Health Insurance [id number]. [id number] 2013 Medicare MEDICARE MEDICAR E A AND B [id number] 2013-Present [phone] [address] [address] [place] [address] Medicare [id number]. [id number] 2013 Medicare [id number]. 1.13.385.2. [id number] 2013 Medicare [id number] 2013 Medicare [id number] 1952 Unknown [id number] 2.16.840.1.561145.3.579.2. 903 1952 Unknown [id number] 2.16.840.1.367146.3.579.2. 903 1952 Unknown [id number] 2.16.840.1.512024.3.579.2. 903 1952 Unknown [id number] 2.16.840.1.959130.3.579.2. 903 1952 Unknown [id number] 2.16.840.1.924948.3.579.2. 903 1952 Unknown [id number] 2.16.840.1.856988.3.579.2. 90 1952 Unknown [id number] 2.16.840.1.752759.3.579.2. 903 1952 Unknown [id number] 2.16.840.1.874811.3.579.2. 903 Private Health Insurance [facility] [id number] Unknown COMMERCIAL COMME RCIAL MISCELLANEOUS [id number] Effective for all dates [phone] [address] [address] [place] [address] 1.2.840.902020.1.13.385.2. 7.3.470824.315 Unknown [id number] 2.16.840.1.120628.3.579.2. 462 Unknown [id number] 2.16.840.1.276194.3.579.2. 462 Unknown [id number] 2.16.840.1.050849.3.579.2. 462 Unknown [id number] 2.16.840.1.476522.3.579.2. 462 Unknown [id number] 2.16.840.1.819941.3.579.2. 462 Unknown [id number] 2.16.840.1.659905.3.579.2. 462 Unknown [id number] 2.16.840.1.498797.3.579.2. 462 Unknown [id number] 2.16.840.1.850579.3.579.2. 462 Unknown [id number] 2.840.1.577371.3.579.2. 462 Unknown [id number] 2.840.1.617800.3.579.2. 462 Unknown [id number] 2.840.1.139702.3.579.2. 462 Unknown [id number] 2.840.1.951501.3.579.2. 462 Unknown [id number] 2.840.1.217357.3.579.2. 462 Unknown [id number] 2.840.1.123591.3.579.2. 462 Unknown [id number] 2.840.1.885826.3.579.2. 462 Unknown [id number] 2.840.1.852359.3.579.2. 462 Unknown [id number] 2.840.1.920389.3.579.2. 462 Unknown [id number] 2.840.1.579236.3.579.2. 462 Unknown [id number] 2.840.1.073228.3.579.2. 462 Unknown [id number] 2.840.1.100690.3.579.2. 462 Unknown [id number] 2..840.1.314931.3.579.2. 462 Unknown [id number] 2.840.1.423431.3.579.2. 462 Unknown [id number] 2.840.1.041273.3.579.2. 462 Unknown [id number] 2.16.840.1.593614.3.579.2. 462 Unknown [id number] 2.16.840.1.701546.3.579.2. 462 Unknown [id number] 2.16.840.1.030785.3.579.2. 462 Unknown [id number] 2.16.840.1.005432.3.579.2. 462 Unknown [id number] 2.16840.1.547857.3.579.2. 462 Unknown [id number] 2.16840.1.897258.3.579.2. 462 Unknown [id number] 2.16840.1.981460.3.579.2. 462 Unknown [id number] 2.16840.1.796667.3.579.2. 462 Social History Date Type Detail Facility Start: 12-31-2013 End: 06-19-2024 Tobacco smoking status NHIS Ex-smoker [facility] Work Phone: Start: 1965 End: 07-20-2013 History of tobacco use Current smoker [facility] Work Phone: Start: 12-31-2013 End: 03-09-2023 Cigarettes smoked current (pack per day) - Reported 0.5 [facility] Start: 12-31-2013 End: 08-28-2024 Tobacco use and exposure Smokeless tobacco non-user [facility] Work Phone: Start: 01-12-2022 End: 07-17-2025 Alcohol intake Current non-drinker of alcohol (finding) [facility] Start: 04-01-2020 History SDOH Social Connections Phone 4 [facility] Start: 04-01-2020 History SDOH Social Connections Get Together 3 [facility] Start: 04-01-2020 History SDOH Social Connections Meetings 1 [facility] Start: 04-01-2020 History SDOH Stress 2 [facility] Start: 04-01-2020 History SDOH Financial 5 [facility] Start: 12-31-2013 End: 09-02-2022 Tobacco Comment Had smoked 40 years 1 PPD every 2 to 3 days (about 20 pack years) [facility] Start: 1950 Sex Assigned At Not on file [facility] Start: 12-13-2021 End: 10-01-2022 Exposure to SARS-CoV-2 (event) Not sure [facility] Start: 02-10-2022 End: 10-13-2023 Tobacco smoking status NHIS Tobacco smoking consumption unknown [facility] Work Phone: Start: 01-20-2021 None [facility] Start: 01-20-2021 Alone [facility] Start: 01-20-2021 Cigarettes [facility] Start: 1950 Sex Assigned At Male [facility] Start: 02-10-2022 [facility] Start: 02-15-2022 End: 06-15-2022 Alcohol intake Current drinker of alcohol (finding) [facility] Start: 02-10-2022 History SDOH Alcohol Comment formerly drank, not in many years [facility] Start: 1967 End: 07-20-2013 History of tobacco use Cigarette Smoker [facility] Work Phone: Start: 04-01-2020 End: 03-09-2023 Social connection and isolation panel [facility] Start: 10-08-2012 Attends [employer] Not on file [facility] Do you feel stress - tense, restless, nervous, or anxious, or unable to sleep at night because your mind is troubled all the time - these days [OSQ] Only a little [facility] At any time in the p ast 12 months, were you homeless or living in alf [including now]? No [facility] (I/We) worried lolita er (my/our) food would run out before (I/we) got money to buy more. Never true [facility] Start: 02-06-2025 Sex Male (finding) [facility] Medical Equipment Procedure Code Equipment Code Equipment Origin al Text Equipment Identifier Dates Souqalmalentifi c Inogen Helminthologist-D [id number] Start: 10-12-2019 [employer] [id number] Start: 10-12-2019 [employer] [id number] Start: 10-12-2019 [place] Gabby laird [id number] Start: 10-12-2019 [id number] Start: 07-06-2017 End: 08-28-2024 Comment on above: [...] Stem 132deg Sz8 Fem Accolade Ii - [id number], [id number]_[facility] FDA Start: 02-13-2022 [employer]EN [...] GOLD FDA Start: 01-06-2022 Icd-G148 Inogen [id number] Start: 10-12-2019 [employer] [...] Start: 10-12-2019 HYDROGEL, 10ML FDA Start: 01-06-2022 MARKERSDEANIA L GOLD FDA Start: 01-06-2022 [employer] ICD FDA Start: 10-12-2019 [employer] ICD FDA Start: 10-12-2019 [employer] ICD FDA Start: 10-12-2019 HYDROGEL, 10ML FDA Start: 01-06-2022 MARKERSYANET GOLD FDA Start: 01-06-2022 Goals Date Patient [...] Commode;Passive Range of Motion;Active Range of Motion;Bedpan [facility] Work Phone: 04-25-2023 Functional status Ambulates [facility] Work Phone: 04-16-2023 Functional status Bedrest [facility] Work Phone: 06-06-2023 Functional status Ambulates;Chair [facility] Work Phone: 04-27-2022 Functional status Chair [facility] Work Phone: 04-14-2022 Functional status Bedrest [facility] Work Phone: 04-13-2022 Functional status Standard Walker [facility] Work Phone: 04-12-2022 Functional status Ambulates [facility] Work Phone: 04-29-2015 Are you deaf, or do you have serious difficulty hearing No 04/29/2015 10:51 AM EDT Destiny Meng Cma [facility] 04-29-2015 Are you blind, or do you have serious difficulty seeing, even when wearing glasses No 04/29/2015 10:51 AM EDT Destiny Meng Cma [facility] 04-29-2015 Do you have serious difficulty walking or climbing stairs No 04/29/2015 10:51 AM EDT Destiny Meng Cma [facility] 04-29-2015 Do you have difficul ty dressing or bathing No 04/29/2015 10:51 AM EDT Destiny Meng Cma [facility] 04-29-2015 Because of a physica l, mental, or emotional condition, do you have difficulty doing errands alone such as visiting a physician's office or shopping No 04/29/2015 10:51 AM Destiny Toscano Cma [facility] Mental Status Date Assessment Result Facility 06-26-2023 Cognitive function Voice/Name [facility] Work Phone: 06-21-2023 Cognitive function Voice/Name [facility] Work Phone: 04-25-2023 Cognitive function Voice/Name [facility] Work Phone: 04-23-2023 Cognitive function Level Of Cons ciousness Drowsy [facility] Work Phone: 04-16-2023 Cognitive function Voice/Name [facility] Work Phone: 04-13-2023 Cognitive function Level Of Cons ciousness Awake;Alert;Appropriate;Fol lows Commands [facility] Work Phone: 04-12-2023 Cognitive function Voice/Name [facility] Work Phone: 04-10-2023 Cognitive function Voice/Name [facility] Work Phone: 06-07-2022 Cognitive function Awake;Alert;F ollows Commands [facility] Work Phone: 04-27-2022 Cognitive function Voice/Name [facility] Work Phone: 04-14-2022 Cognitive function Voice/Name [facility] Work Phone: 04-11-2022 Cognitive function Voice/Name [facility] Work Phone: 04-10-2022 Cognitive function Cooperative [facility] Work Phone: 03-31-2022 Cognitive function Voice/Name [facility] Work Phone: 01-06-2022 Cognitive function Voice/Name [facility] Work Phone: 04-29-2015 Because of a physica l, mental, or emotional condition, do you have serious difficulty concentrating, remembering, or making decisions No 04/29/2015 10:51 AM EDT Destiny Meng Cma [facility] Clinical Notes 02-24-2017 to 08-29-2025 Telephone Encounter - Mayra Benton RN - 07/19/2025 2:05 PM EDTTelephone Encounter - Mayra Benton RN - 07/19/2025 2:05 PM EDTTelephone Encounter - Merlin Loredo MD - 07/19/2025 1:21 PM EDT Note Date & Type Note Facility 08-29-2025 Note HNO ID: [id number] Author: EL ARNETT MD Service: ? Author Type: Physician Type: Progress Notes Filed: 08/29/2025 16:45 Note Text: No issues, well-healed. Follow-up PRN. El Arnett MD I have seen and evaluated the patient and discussed the case with the resident physician. I agree with the assessment and plan as documented in the resident?s note. [facility] 08-29-2025 Note HNO ID: [id number] Author: LEONIE ANTOINE MD Service: ? Author Type: Resident Type: Progress Notes Filed: 08/29/2025 16:45 Note Text: [facility] Abdominal [facility] - ESTABLISHED FOLLOW-UP Chief Complaint: [...] failure to thrive Atherosclerotic heart disease of [place] coronary artery without angina pectoris Atrial fibrillation [...] situ 10/[address] Gonzáles alf current use of insulin (HCC) Metabolic encephalopathy [...] Mother thinks over active Diabetes Child daughter Additional family history not [...] m (more content not included)... [facility] 08-29-2025 Note HNO ID: [id number] Author: BASSEM SINGH MA Service: ? Author Type: Heavy Equipment Sales Associate Type: Progress Notes Filed: 08/29/2025 16:45 Note Text: What is the reason for your visit today? Post OP Who is your referring physician? Are you having poor oral intake? NO Have you had unintentional weight loss of 15 lbs/7 Kg in the last 3-6 months? NO Bowels: regular Wound: clean AND dry Temperature: No Drains: No [facility] 08-21-2025 Note HNO ID: [id number] Author: GLENDA HUMPHREY LPN Service: ? Author Type: Licensed Nurse Type: Progress Notes Filed: 08/21/2025 14:39 Note Text: Patient here for injection of Prolia given SQ in right arm and Eligard given SQ in LLQ. Patient tolerated well. Glenda Humphrey LPN [facility] 08-08-2025 Note HNO ID: [id number] Author: THANIA ROMAN RN Service: Care Management Author Type: Registered Nurse [...] the process utilized to ensure compliance with [facility] policy regarding Inpatient Admission and Observation [...] as documented evidence of concurrence. [facility] 08-08-2025 Note HNO ID: [id number] Author: SATISH RAMIREZ RPh Service: Pharmacy Author [...] discharge medication list. Satish Ramirez RPh Pager: [phone] 08/08/2025 2:22 PM Medication List START taking [...] capsule Commonly known as: COLACE FLEET ENEMA IN GLUCAGON EMERGENCY KIT (HUMAN) INJECTION GLUCOSE GEL [...] Your Medications These medications were sent to [facility] [place] [address] - [address] - [phone] [address] [facility] [address] apixaban 5 mg tab(s) ondansetron 4 mg tablet [facility] 08-08-2025 Note HNO ID: [id number] Author: DENA MORENO LSW Service: Care Management Author Type: Msw Type: Care Mgt Initial Assessment Filed: 08/08/2025 13:59 Note Text: CARE MANAGEMENT: ASSESSMENT AND DISCHARGE PLAN SERVICE DATE: August 08, 2025 SERVICE TIME: 1:56 PM PCP: Elisa Narvaez MD Primary Contact: Extended Emergency Contact Information Primary Emergency Contact: Bob Ferraro Hilliard Mobile Relation: Friend Admission Status: Inpatient Insurance Provider: MEDICARE A AND B Discharge Planning requested by: Per Department Practice Potential Transition Plans Shelter Facility/Intermediate Care Facility Advance Directives Current Advance Directive: Health Care Power of Drafter Heating And Ventilating In Chart: Yes Up To Date and Valid: Yes Current Living Arrangements and Support Lives with: Other person(s) Type of Residence: Extended Care Facility Care Facility Name: [facility] Support: Other: See Comment How do you manage to accomplish the following: Dependent: Ambulation, Bathe/Shower, Dress, Meals/Meal Prep, Going to the bathroom, Medication Management, Transportation to appointments/community Current Services/Equipment Discharge Planning Patient Goal(s): General wellness [place] of Choice Explained: [place] of Choice Given: Yes Are you interested in bedside delivery of your medications? Yes Discharge Planning Participant(s): Caregiver Patient/Family Comments: Bob Ferraro/EDGAR Caregiver Assessment: Caregiver is ready, willing and able to meet the patient's needs as recommended by the inter-professional team: Yes Name of Caregiver: Nursing Facility Transport at Discharge: Transportation Arrangements: [place] [employer] [facility] and Phone #:: [facility] [phone] Date of Trip: 08/08/25 Time of Trip: 1430 Was transportation financial coverage discussed with family?: POA Needs Prior to Discharge: Needs Prior to Discharge: None Post-Acute Discharge Plan: Chart reviewed. Notified by primary team that pt is medically cleared to return to his detention today. Pt is currently s/p [facility] inguinal hernia repair. Pt is a [facility]p resident at [facility] [address]. Referral sent. Pt has a bed hold and can return today. Transport requested. Pt needs to transport in his motorized wc. MMT transport today at 230p. Trip number [id number] DC packet completed. Rn given report number DC instructions and dc summary sent to SNF via [employer]. No additional needs identified for CM intervention at this time. SIGNATURE: KRYSTIN Dumont PATIENT NAME: Steph Baumann DATE: August 08, 2025 TIME: 1:56 PM [facility] 08-08-2025 Note HNO ID: [id number] Author: HIRAM MENDOZA MD Service: General Surgery [...] Surgery, PGY 1 Hernia Surgery service (pager [phone]) 08/08/2025 Hernia Teams: Emiliano (Otto Shukla, Uri): [phone] Grundfe (Ce Bhatia Petro): [phone] After 6PM and on the weekends: [phone] SUBJECTIVE: No acute events overnight Pain is appropriately controlled with current regimen Nausea: No. Vomiting: No. Flatus: No. Bowel movement: No. OBJECTIVE Physical Exam: BP 122/53 Pulse 70 Temp (Src) 97.5 (Oral) Resp 18 Ht 5' 9.016 (1.75m) Wt 171 lb 15.3 oz (78.0kg) [...] Cardiac Enzymes Intake and Output: Date 08/07/25 07 - 08/08/25 0659 08/08/25 0700 - 08/09/25 0659 Shift 9551-3712 6807-7345 7617-5774 24 Hour Total 7408-0707 3565-1063 4922-9727 24 Hour Total INTAKE PO 100 0 100 PO 100 0 100 IV 333 893 9352 Volume (mL) (albumin (5%) infusion) 250 250 Volume (mL) (lactated ringers iv infusion) 600 600 Volume (mL) (lactated ringers iv infusion) 400 400 Shift Total 850 500 0 1350 OUTPUT Urine 300 112 887 6290 OR Urine Output 200 200 Output ( Indwelling Urinary Catheter 08/07/25 1012 External Facility [place]) 100 710 037 6910 # of BMs Number of BMs 0 x 0 x 0 x Blood 20 20 Estimated Blood loss 20 20 Shift Total 320 031 285 1134 Weight (kg) 78 78 78 78 78 78 78 Current Medications: Current Facility-Administered Medications Medication Dose Route Frequency bicalutamide 50 mg tab(s) (CASODEX) 50 mg ORAL DAILY acetaZOLAMIDE 250 mg tab(s) (DIAMOX) 250 mg ORAL BID bumetanide 1 mg tab(s) (BUMEX) 1 mg ORAL DAILY lisinopril 5 mg tab(s (more content not included)... [facility] 08-07-2025 Note HNO ID: [id number] Author: KODI WORTHINGTON MD Service: General Surgery [...] Surgery, PGY 1 Hernia Surgery service (pager [phone]) 08/07/2025 Hernia Teams: Emiliano (Otto Shukla Tastaldi): [phone] Mirza (Ce Bhatia Petro): [phone] After 6PM and on the weekends: [phone] [facility] 08-07-2025 Note HNO ID: [id number] Author: PERLA ROSARIO APRN.INDUSTRIAL SERVICE TECHNICIAN Service: ? Author Type: Nurse Wallpaper Embosser Helper Type: Anesthesia Procedure Notes Filed: 08/07/2025 12:21 Note Text: ANESTHESIOLOGY PROCEDURE NOTE PIV General Information Procedure Start Time/Medication Administration: 08/07/2025 11:30 AM Procedure End Time: 08/07/2025 11:30 AM Patient Location: OR Staffing INDUSTRIAL SERVICE TECHNICIAN: Perla Rosraio APRN.INDUSTRIAL SERVICE TECHNICIAN SRNA: Toby Peters SRNA Performed by: GISELL [...] Imaging Guidance Used: No SIGNATURE: Perla Rosario APRN.INDUSTRIAL SERVICE TECHNICIAN PATIENT NAME: Steph Baumann DATE: August 07, 2025 TIME: 12:20 PM CSN: [id number] [facility] 08-07-2025 Note HNO ID: [id number] Author: PERLA ROSARIO APRN.CRNA Service: ? Author Type: Nurse Wallpaper Embosser Helper Type: Anesthesia Procedure Notes Filed: 08/07/2025 12:10 Note Text: ANESTHESIOLOGY PROCEDURE NOTE A-Line General Information Procedure Start Time/Medication Administration: 08/07/2025 11:25 AM Procedure End Time: 08/07/2025 11:26 AM Patient location during procedure: OR Timeout Performed Pre-procedure: timeout performed Indications: continuous blood pressure monitoring and blood sampling needed Staffing INDUSTRIAL SERVICE TECHNICIAN: Perla Rosario APRN.INDUSTRIAL SERVICE TECHNICIAN Performed by: CARMEN Preparation Sterility Preparation: hand [...] August 07, 2025 TIME: 12:01 PM CSN: [id number] [facility] 08-07-2025 Note HNO ID: [id number] Author: PERLA ROSARIO APRN.CRNA Service: ? Author Type: Nurse Wallpaper Embosser Helper Type: Anesthesia Procedure Notes Filed: 08/07/2025 12:00 Note Text: ANESTHESIOLOGY PROCEDURE NOTE Airway General Information Procedure Start Time/Medication Administration: 08/07/2025 11:32 AM Procedure End Time: 08/07/2025 11:33 AM Patient location during procedure: OR Timeout Performed Pre-procedure: timeout performed Consent Obtained: Yes Patient identity confirmed: arm band, care automobile washer steam and patient Staffing SRNA: Toby Peters SRNA Performed by: GISELL Indications and Patient Condition Indications for airway management: anesthesia Preoxygenated: yes anesthesia circuit Patient position: sniffing Method: modified rapid sequence Cricoid Pressure: No Manual In-Line Stabilization: No Difficult Mask: No Final Airway Details Final airway type: endotracheal airwayFinal Endotracheal Airway: ETT Cuffed: yes Successful intubation technique: video laryngoscopy Devices used: Evcarco Endotracheal tube insertion site: oral Blade: Dora Blade size: #4 ETT size (mm): 7.5 Measured from: lips Measurement (cm): 23 Placement verified by: capnometry Cormack-Lehane Classification: grade I - full view of glottis Number of attempts at approach: 1 Failed airway: no Unrecognized esophageal intubation: no Airway not difficult SIGNATURE: Perla Rosario APRN.CRNA PATIENT NAME: Steph Baumann DATE: August 07, 2025 TIME: 11:58 AM CSN: [id number] [facility] 07-30-2025 Note HNO ID: [id number] Author: BAKARI CHAUDHRY MD Service: ? Author [...] s/p 2018, AFIB on apixaban (followed at [facility]), prostate cancer s/p radiation therapy 2021, on [...] 0.7 Rheumatoid Factor No results found for: RF TSH TSH Date Value 05/09/2024 2.570 mIU/L [...] H (more content not included)... [facility] 07-19-2025 Telephone encounter Note Patient updated Mayra Benton RN [facility] 07-19-2025 Miscellaneous Notes Patient updated Mayra [...] 10:05 AM P.O.A called in Please call [phone] to discuss lab/test results Luz Elena Snell Publication Distributor maya documented in this encounter [facility] 07-19-2025 Telephone encounter Note Mayra, Please let him know: Official reading of US indicates the absence of ascites; no liver mass, and the presence of gallstones labs are excellent He is cleared for hernia repair from liver perspective. I look forward to seeing him in 6 months Merlin Loredo MD [facility] Work Phone: 07-19-2025 Telephone encounter Note Lab results and LIVUS result available for review LIVUS: IMPRESSION: Visualized liver is unremarkable except for stable subcentimeter echogenic lesion in the right lobe that is likely benign. Cholelithiasis. No biliary dilatation. Mayra Benton RN July 19, 2025 10:05 AM [facility] 07-19-2025 Telephone encounter Note P.O.A called in Please call [phone] to discuss lab/test results Luz Elena Snell Publication Distributor T [facility] 07-18-2025 Note HNO ID: [id number] Author: MERLIN LOREDO MD Service: ? Author [...] pulmonary hypertension is being monitored by his equipment analyst. Diagnostics: (February 2025) CMP: Entirely normal (Today) [...] (97.2 ?F) (Temporal) Ht 175.3 cm (5' 9) Wt 78 kg (172 lb) SpO2 97% [...] liver perspective Merlin Loredo MD [facility] 07-18-2025 History of Presen t illness [...] pulmonary hypertension is being monitored by his equipment analyst. Diagnostics: (February 2025) CMP: Entirely normal (Today) [...] (97.2 F) (Temporal) Ht 175.3 cm (5' 9) Wt 78 kg (172 lb) SpO2 97% [...] Merlin Loredo MD documented in this encounter [facility] 07-17-2025 Telephone encounter Note Placed cardiology and pulm HTN consults- requested within a week. Thank you. [facility] 07-17-2025 Miscellaneous Notes Placed cardiology and pulm HTN consults- requested within a week. Thank you. documented in this encounter [facility] 07-17-2025 Note Addended by: LUPE RUSHING on: 07/17/2025 01:34 PM Modules accepted: Orders [facility] 07-17-2025 Miscellaneous Notes Addended by: LUPE RUSHING on: 07/17/2025 01:34 PM Modules accepted: Orders documented in this encounter [facility] 07-17-2025 Instructions Lupe Rushing MD - 07/17/2025 12:47 PM EDT Images from the original note were not included. [facility] PATIENT PREOPERATIVE INSTRUCTIONS Hung Ridley APRN.C* has scheduled you for your procedure at this surgery center: [facility]: --[address] [place] [address]. - To obtain your arrival time for surgery, call your physician's office the day before your surgery. - If you have received different instructions about finding out your arrival time from your surgeon, please follow those instructions. - If your surgery is scheduled for Tuesday, call the Tuesday before. Your surgeon s supervisor buffing and pasting will tell you what time to call the office. - If you have not reached the departmental supervisor buffing and pasting by 5 P.M., call [phone] after 5 P.M. the day before your [...] office. If you are currently using a [id number] injectable or oral medication for diabetes or [...] Advance Directive, please fax a copy to [phone] or email to for it to be [...] scanned into your chart that day. Lupe Rushing MD documented in this encounter [facility] 07-17-2025 History and physical note Images [...] 30s. Has ICD, gets cardiology care at [place], last ICD check last month per POA Has hx of severe pulm HTN back in 2019 with RV moderate dysfunction, this appears to [...] dependent. Clinical Frailty Scale: 7. Severely frail [id number] Score: Age: 65-74 Sex: male CHF history: Yes Hypertension history: Yes Stroke/TIA/thromboembolism history: Yes Vascular disease history: Yes Diabetes history: Yes [id number] Score: 7 ASA Class: 5 I - [...] loss, malaise or fevers. Neurological: Positive for: DRY CELL TESTER tumor and Parkinson's disease. Respiratory: Positive for: [...] failure to thrive Atherosclerotic heart disease of [place] coronary artery without angina pectoris Atrial fibrillation [...] situ 10/[address] 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 Instructions Given to Patient: Instructions located [...] use: No Comment: Remote drugs, quit 1994. [facility] 07-17-2025 History and physical note Images [...] 30s. Has ICD, gets cardiology care at [place], last ICD check last month per POA [...] dependent. Clinical Frailty Scale: 7. Severely frail [id number] Score: Age: 65-74 Sex: male CHF history: Yes Hypertension history: Yes Stroke/TIA/thromboembolism history: Yes Vascular disease history: Yes Diabetes history: Yes [id number] Score: 7 ASA Class: 5 I - [...] loss, malaise or fevers. Neurological: Positive for: DRY CELL TESTER tumor and Parkinson's disease. Respiratory: Positive for: [...] failure to thrive Atherosclerotic heart disease of [place] coronary artery without angina pectoris Atrial fibrillation [...] situ 10/[address] 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 Instructions Given to Patient: Instructions located [...] drugs, quit 1994. documented in this encounter [facility] 07-17-2025 Instructions Merlin Loredo MD - [...] your next visit. documented in this encounter [facility] 07-17-2025 History of Presen t illness [...] PATIENT PRESENTS WITH AN IMPLANTABLE OR ATTACHED FISH AND WILDLIFE SCIENTIFIC AID: No RADIOLOGY DEPARTMENT: Ultrasound PERIPHERAL IV DATA: Not applicable SIGNED BY: Syeda Prado RDMS July 17, 2025 10:30 AM documented in this encounter [facility] 07-17-2025 Note HNO ID: [id number] Author: SYEDA PRADO RDMS Service: Radiology Author [...] PATIENT PRESENTS WITH AN IMPLANTABLE OR ATTACHED FISH AND WILDLIFE SCIENTIFIC AID: No RADIOLOGY DEPARTMENT: Ultrasound PERIPHERAL IV DATA: Not applicable SIGNED BY: Syeda Prado RDMS July 17, 2025 10:30 AM [facility] 06-18-2025 Procedure note [facility] 05-29-2025 Note HNO ID: [id number] Author: GLENDA HUMPHREY LPN Service: ? Author Type: LICENSED NURSE Type: Progress Notes Filed: 05/29/2025 14:13 Note Text: Patient here for injection of Eligard. Given SQ in LLQ. Patient tolerated well. Glenda Humphrey LPN [facility] 05-29-2025 History of Present illness Narrative Patient here for injection of Eligard. Given SQ in LLQ. Patient tolerated well. Glenda Humphrey LPN documented in this encounter [facility] 05-16-2025 Note HNO ID: [id number] Author: EL ARNETT MD Service: ? Author [...] is a friend of the family from [place] and the decision clearly weighs heavily on [...] consented for study? Not applicable [facility] 05-16-2025 History of Present illness Narrative [...] is a friend of the family from [place] and the decision clearly weighs heavily on [...] were not included. CLINIC NOTE Steph Baumann [id number] SUBJECTIVE: Steph Baumann is a 74 year [...] (97.5 F) (Temporal) Ht 175.3 cm (5' 9) Wt 78.1 kg (172 lb 3.2 oz) [...] PM Hernia Team Emiliano (Otto Kendrick Rosenblatt): [id number] Mirza (Ce Bhatia Petro): [id number] After 6PM + weekends: [id number] What is the reason for your visit today? EST Who is your referring physician? Dr. Arnett Are you having poor oral intake? NO Have you had unintentional weight loss of 15 lbs/7 Kg in the last 3-6 months? NO Bowels: regular Wound: clean & dry Temperature: No Drains: No documented in this encounter [facility] 05-16-2025 Note HNO ID: [id number] Author: ?, ?, ? Service: ? Author Type: ? Type: Progress Notes Filed: 05/16/2025 16:51 Note Text: CLINIC NOTE Steph Connelly Pastor [id number] SUBJECTIVE: Steph Baumann is a 74 year [...] (97.5 ?F) (Temporal) Ht 175.3 cm (5' 9) Wt 78.1 kg (172 lb 3.2 oz) [...] PM Hernia Team Emiliano (Otto Kendrick Rosenblatt): [id number] Mirza (Ce Bhatia Petro): [id number] After 6PM + weekends: [id number] [facility] 05-16-2025 Note HNO ID: [id number] Author: ?, ?, ? Service: ? Author [...] dry Temperature: No Drains: No [facility] 03-07-2025 Telephone encounter Note Bob called back and was given the below information Marilynn Cantu [facility] 03-07-2025 Miscellaneous Notes Bob called back and was given the below information Marilynn Cantu I left a message for Bob asking her to check the patient's MyChart messages. Thania Santos LPN Can let his friend Bob know that his PSA remains undetectable. documented in this encounter [facility] 03-07-2025 Telephone encounter Note I left a message for Bob asking her to check the patient's MyChart messages. Thania Santos LPN [facility] 03-07-2025 Progress note Formatting of t his note might be different from the original. Can let his friend Bob know that his PSA remains undetectable. [facility] Work Phone: 03-06-2025 Note HNO ID: [id number] Author: GLENDA HUMPHREY LPN Service: ? Author Type: LICENSED NURSE Type: Progress Notes Filed: 03/06/2025 11:57 Note Text: Patient here for injection of Prolia given SQ in right arm and Eligard given SQ in LLQ. Patient tolerated well. See OV with Dr Kothari today. Glenda Humphrey LPN [facility] 03-06-2025 History of Present illness Narrative Patient here for injection of Prolia given SQ in right arm and Eligard given SQ in LLQ. Patient tolerated well. See OV with Dr Kothari today. Glenda Humphrey LPN documented in this encounter [facility] 03-06-2025 Note Addended by: JONNATHAN KOTHARI on: 03/06/2025 11:24 AM Modules accepted: Orders [facility] 03-06-2025 Miscellaneous Notes Addended by: JONNATHAN KOTHARI on: 03/06/2025 11:24 AM Modules accepted: Orders documented in this encounter [facility] 03-06-2025 Note HNO ID: [id number] Author: JONNATHAN KOTHARI DO Service: ? Author [...] for cirrhosis. Here today with POElizabeth from [place] (daughter's friend). Visits him every 2 weeks. Diagnosed with Parkinsons in April. Requires wheelchair. Was independent prior to that. Living at [facility]. Recently started having dysuria deep in when [...] failure to thrive Atherosclerotic heart disease of [place] coronary artery without angina pectoris Atrial fibrillation [...] hemip (more content not included)... [facility] 03-06-2025 History of Present illness Narrative [...] for cirrhosis. Here today with POA from [place] (daughter's friend). Visits him every 2 weeks. Diagnosed with Parkinsons in April. Requires wheelchair. Was independent prior to that. Living at [facility]. Recently started having dysuria deep in when [...] failure to thrive Atherosclerotic heart disease of [place] coronary artery without angina pectoris Atrial fibrillation [...] situ 10/[address] Gonzáles alf current use of insulin (HCC) Metabolic encephalopathy [...] Mother thinks over active Diabetes Child daughter ROS: Constitutional: No fever. [...] -I verified bicalutamide on med list at [facility]. -PSA undetectable as of 12/2024. - On [...] Jonnathan Kothari DO documented in this encounter [facility] 02-15-2025 Telephone encounter Note Nurse called vik Rojas. She confirmed pt name and Nurse relayed update to Bob Rojas is pleased w/ the update. She had no further questions or concerns Mayra Benton RN February 15, 2025 2:50 PM [facility] 02-15-2025 Miscellaneous Notes Nurse called vik [...] a rt call. documented in this encounter [facility] 02-15-2025 Telephone encounter Note Osas, Please let Bob know I have reviewed the lab tests and liver tests are normal. Thee were no surprises. We discussed other test results in office. Let me know if she has additional questions. Merlin Loredo MD [facility] Work Phone: 02-14-2025 Telephone encounter Note Patient called to discuss his most recent lab results, she would like a rt call. [facility] 02-13-2025 Instructions Merlin Loredo MD - [...] If everything is normal, my nurse or social secretary will notify you. If there are any concerns, I will contact you directly. You can also check your results on [employer]. Follow-up plan: - Continue with liver ultrasounds every 6 months to monitor for any potential issues. - If you have any questions or concerns, please reach out to our office. documented in this encounter [facility] 02-13-2025 Note HNO ID: [id number] Author: MERLIN LOREDO MD Service: ? Author [...] failure to thrive Atherosclerotic heart disease of [place] coronary artery without angina pectoris Atrial fibrillation [...] situ 10/[address] 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 [facility] 02-13-2025 History of Present illness Narrative [...] failure to thrive Atherosclerotic heart disease of [place] coronary artery without angina pectoris Atrial fibrillation [...] situ 10/[address] Gonzáles alf current use of insulin (HCC) Metabolic encephalopathy [...] (97.6 F) (Temporal) Ht 175.3 cm (5' 9) Wt 80.7 kg (178 lb) SpO2 95% [...] Merlin Loredo MD documented in this encounter [facility] 02-13-2025 History of Present illness Narrative [...] PATIENT PRESENTS WITH AN IMPLANTABLE OR ATTACHED FISH AND WILDLIFE SCIENTIFIC AID: No RADIOLOGY DEPARTMENT: Ultrasound PERIPHERAL IV DATA: Not applicable SIGNED BY: Marilynn Lanza RDMS February 13, 2025 1:48 PM documented in this encounter [facility] 02-13-2025 Note HNO ID: [id number] Author: MARILYNN LANZA RDMS Service: ? Author Type: Medical Chemist Type: Progress Notes Filed: 02/13/2025 13:48 Note [...] PATIENT PRESENTS WITH AN IMPLANTABLE OR ATTACHED FISH AND WILDLIFE SCIENTIFIC AID: No RADIOLOGY DEPARTMENT: Ultrasound PERIPHERAL IV DATA: Not applicable SIGNED BY: Marilynn Lanza RDMS February 13, 2025 1:48 PM [facility] 12-12-2024 Note HNO ID: [id number] Author: GLENDA HUMPHREY LPN Service: ? Author Type: LICENSED NURSE Type: Progress Notes Filed: 12/12/2024 15:50 Note Text: Patient here for injection of Eligard. Given SQ in RLQ. Patient tolerated well. Glenda Humphrey LPN [facility] 12-12-2024 History of Present illness Narrative Patient here for injection of Eligard. Given SQ in RLQ. Patient tolerated well. Glenda Humphrey LPN documented in this encounter [facility] 12-12-2024 Evaluation note Diagnosis Onset Date Resolution Atrial fibrillation acute Febru puneet2024 11:10am Cirrhosis acute December 12, 2024 11:10am [...] Parkinson's disease inactive January 24, 2025 8:21am [facility] Work Phone: [phone] Note* Addendum Note - Mayra Benton RN - 10/22/2024 1:47 PM ESTAddended by: MAYRA BENTON on: 10/22/2024 01:47 PM Modules accepted: Orders [facility]12-16-2024 Miscellaneous Notes* Addendum Note - Mayra [...] new lab orders, 12/01 Luz Elena Snell Publication Distributor ll [facility] Telephone encounter Note * Telephone Encounter - Mayra Benton RN - 10/22/2024 1:46 PM EST Orders pended with later expiry date Mayra Benton RN October 22, 2024 1:47 PM [facility]12-16-2024 Telephone encounter Note* Telephone Encounter - Luz Elena Snell - 10/22/2024 1:[address] new lab orders, 12/01 Luz Elena Snell Publication Distributor ll [facility]11-13-2024 NoteHNO ID: [id number] Author: GLENDA HUMPHREY LPN Service: ? Author Type: LICENSED NURSE Type: Progress Notes Filed: 09/19/2024 15:34 Note Text: Pt here for injection of Eligard. Given SQ in abd LLQ. Pt tolerated well. [facility] History of Present illness Narrative* Glenda Humphrey LPN - 09/19/2024 3:30 PM EST Pt here for injection of Eligard. Given SQ in abd LLQ. Pt tolerated well. Glenda Humphrey LPN [facility] History of Present illness Narrative* Lissy [...] biopsy on 11/12/2021. All 4 cores demonstrated Monroe grade 7, 2 of the cores were [...] for cirrhosis. Here today with POA from [place] (daughter's friend). Visits him every 2 weeks. Diagnosed with Parkinsons in April. Requires wheelchair. Was independent prior to that. Living at [facility]. 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 Gonzáles alf current use of insulin (HCC) Metabolic encephalopathy [...] Mother thinks over active Diabetes Child daughter ROS: Constitutional: No fever. [...] in 6 months with injection Lissy Anna APRN.WIRE WEAVER I spent a total of 30 minutes on the date of the service which included preparing to see the patient, [id number] patient care, completing clinical documentation, and performing [...] evaluation of this patient. [facility] History of Present illness Narrative* Merlin Loredo MD - 08/28/2024 2:53 PM EDT Follow up 74 year old with fairly advanced Parkinson's wheel chair bound resides in [place] Last visit March 2024 when I concluded: [...] (97.7 F) (Temporal) Ht 175.3 cm (5' 9) Wt 78 kg (172 lb) SpO2 98% [...] counseling Merlin Loredo MD [facility] History of Present illness Narrative* Parisa [...] confirm and referral to hepatology. Parisa Miller APRN.WIRE WEAVER Alcoholic Liver disease Fibroscan Fibrosis Risk <7 [...] Y, Ariel Q, Lozano T, Jayde J, Lozano H, Ruth T. Controlled attenuation parameter for assessment of hepatic steatosis grades: a diagnostic meta-analysis. Int J Clin Exp Med. 2015 Aug 15;8(10):80607-82.PMID: 51649456; PMCID: [id number]. Stuart Fuentes, Russel KIMBERLEE, Dia-Khalif M, Carie F, Chasidy J, Marek O, Richard F, Harjit M, Evangelista G, Anahy A, Hien E, Herve L, Zahraa G, Reese A, [place] U, Rolle S, OzzieesP, Quirino V, de Edgard V, Genevieve Fuentes, Ajit BARRIOS. Refining the Baveno elastography criteria for the definition of compensated advanced chronic liver disease. J Hepatol. 2020;74(5):2740-2032. doi: 10.1016/j.jhep.2020.11.050. Epub 2019Oct 15. PMID: 77923181. Renita Fuentes, Dorie Wang, Nallely Fuentes, Raghav Fuentes, Willis S, Velvet Chávez, Karli Chávez, Swati Giordano.AASLD practice guidance on the clinical assessment and management of nonalcoholic fatty liver disease. Hepatology. 2022;77(5):1797- 1835. doi:10.1097/HEP.[id number] [facility] Nurse Note* Tarsha Vincent RN - [...] MATERIAL: Procedure Discharge Instructions REFERRAL (RECOMMENDATION): None [facility]10-16-2024 Nurse Note* Tarsha Vincent RN - [...] RN In Department: GASTROENTEROLOGY [facility] History and physical note * Alfred [...] Moderate Additional Comments: None Alfred Ramsey MD [facility] Work Phone: [phone] History and physical note* Alfred Mariee MD [...] None Alfred Ramsey MD [facility] Nurse Note* Harjeet Del Angel RN [...] HARJEET DEL ANGEL RN In Department: GASTROENTEROLOGY [facility]10-08-2024 Telephone encounter Note* Telephone Encounter - Nancy Fontaine RN - 08/14/2024 10:22 AM EDT Attempted to reach the patient at the contact number that they provided [phone] (home) . 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 Given IM in left buttocks. Pt tolerated well. Glenda Humphrey LPN [facility]08-14-2024 Nurse Note* Glenda Humphrey LPN - 06/20/2024 11:02 AM EDT Pt here for injection of Lupron. Given IM in left buttocks. Pt tolerated well. Glenda Humphrey LPN documented in [facility]08[facility] History of Present illness Narrative* Glenda Humphrey LPN - 06/20/2024 10:59 AM EDT Pt here for injection of Lupron. Given IM in left buttocks. Pt tolerated well. Glenda Humphrey LPN documented [facility]08[facility] History of Present illness Narrative* Maximo Watkins MD - 06/13/2024 2:56 PM EDT Images from the original note were not included. CONSULT ORTHOPAEDIC: HIP PRIMARY CARE PHYSICIAN: Elisa Narvaez MD REFERRING PROVIDER: No referring provider defined for this encounter. ASSESSMENT & PLAN This is a 74-year-old male who presents with right hip pain. Patient had a femoral neck fracture [id number] and underwent a cementless hemiarthroplasty at that [...] stroke, diabetes. He was previously seen at [facility] by another orthopedic surgeon. He was worked up for infection and his ESR and CRP will normal back in April when they were drawn. But he is continue to have severe pain. He is here with his POA today. Again patient has not walked in 1 and half years has been wheelchair-bound has an appointment to [facility] entire time. CRP on 04/10/2024 [...] 04/12/2023. Consult to the Endocrinology and Metabolic Export (JOSIE) recommended prior to surgery. Area Deprivation [...] thrive No date: Atherosclerotic heart disease of [place] coronary artery without angina pectoris No date: Atrial fibrillation (HCC) Comment: CVA 2010, attributed to atrial fibrillation. Warfarin since. No date: Cardiomyopathy, unspecified (HCC) No date: Chronic combined systolic and diastolic congestive heart failure (HCC) No date: Chronic kidney disease, stage 3b ([facility]) No date: Chronic respiratory failure with hypoxia ([facility]) No date: Epilepsy, unspecified, not intractable, without status epilepticus ([facility]) No date: Esophageal reflux 12/31/2013: Essential and other specified forms of tremor Comment: All my life. No date: Essential hypertension, benign No date: Gastroesophageal reflux disease without esophagitis No date: H/O brain tumor Comment: Benign, resected. No date: H/O right and left heart catheterization 2010: H/O: stroke Comment: No functional residual. 04/13/2017. No date: Hemiplegia and hemiparesis following cerebral infarction affecting left non-dominant side ([facility]) No date: Hypercholesterolemia No date: Hyperlipidemia, unspecified No date: Hypertensive chronic kidney disease with stage 1 through stage 4 chronic kidney disease, or unspecified chronic kidney disease 10/2019: ICD (implantable cardioverter-defibrillator), biventricular, in situ Comment: MRI compatible per Dr. 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 Dr. Tanner. Not able to afford MRIs yearly. 10/2019: PAST SURGICAL HISTORY OF Comment: Placement of BiVICD FAMILY HISTORY Problem Relation Age of Onset Diabetes Mother Coronary Artery Disease Mother Thyroid Mother thinks over active Diabetes Child daughter Social History Tobacco Use [...] OBJECTIVE PHYSICAL EXAM Ht 177.8 cm (5' 10) Wt 79.4 kg (175 lb) BMI 25.11 [...] which included preparing to see the patient, [id number] patient care, completing clinical documentation, obtaining and/or [...] 2024 TIME: 2:56 PM [facility] Nurse Note* Luisa Barajas LPN - [...] immediate adverse reactions noted. Luisa Barajas LPN [facility]08-02-[facility] Nurse Note* Luisa Barajas LPN - [...] noted. Luisa Barajas LPN documented in this encounterGalion [facility]07-17-2024 Telephone encounter Note * Telephone Encounter - Corrine Bales RN - 05/23/2024 2:45 PM EDT Idalia from call line had this patient on line stating they could not make their 2:40 appt because their transportation cancelled ([place] He was wondering if [...] got patient anappoint 06/13 at 2:20 pm. Elizabeth is hoping the transportation company comes thru with the fern picker. [facility]07-17-[facility] Miscellaneous Notes* Telephone Encounter - Corrine Bales RN - 05/23/2024 2:45 PM EDT Idalia from call line had this patient on line stating they could not make their 2:40 appt because their transportation cancelled (lives in detention 40 [place] away). He was wondering if [...] at 2:20 pm. EDGAR is hoping the [employer] company comes thru with the fern picker. documented in this encounterGalion [facility] Hospital07-15-2024 Telephone encounter Note * Telephone Encounter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 report to the closest Emergency Room. Call 911 if necessary. 06/21/23 1623 <Electronically signed by Juan Conte DO> Cosigner Signature (if applicable): CC: Dr. Manuel Beebe MD ~ Signed [facility] Work Phone: 1(528) 297-821806-19-[address] Addison [facility] April 25, 2023 12:21pm Note Date/Time April 25, 2023 12:0 9pm [facility] Medical Records Department [address] [place] [address] Transfer to [facility] MR#: [id number] Acct: [id number] Name: STEPH BAUMANN Rep #:[id number] : 1950 72 From: Maximo sung MD PCP: Dr. Manuel Beebe MD Status:AD M IN Certification of patient admission REQUIRED AT TIME OF ADMISSION. I CERTIFY THAT POST-HOSPITAL ECF SERVICES ARE REQUIRED TO BE GIVEN ON AN IN-PATIENT BASIS BECAUSE OF THE ABOVE NAMED PATIENT'S NEED FOR PRISON CARE ON A CONTINUING BASIS FOR THE [...] in before D/C Order can be placed): Shelter Facility 04/25/23 1221 <Electronically signed by Maximo Addison MD> Cosigner Signature (if applicable): CC: Dr. Manuel Beebe MD; Dr. Fior Turner MD ~ [facility] Work Phone: 1(269) 880-340506-18-[address] Turner [facility] April 24, 2023 2:03pm Note Date/Time April 24, 2023 10:2 8am [facility] Medical Records Department [address] [facility] [place] [address] Progress Note 04/24/23 1025 MR#: [id number] Acct: [id number] Name: STEPH BAUMANN Rep #:[id number] : 1950 72 From: Fior Turner MD PCP: Dr. Manuel Beebe MD Status:AD M IN Location: [place] [address] Subjective Subjective Patient seen and examined. He [...] Intake Total 1000 / 1000 2031.25 / 2031.25 Output Total 450 / 450 200 / 200 Balance 550 / 550 1831.25 / 1831.25 Lab / Micro Data Result Diagrams: 04/24/23 [...] 84.7 H, Lymph % (Auto) 7.2 L, [place] % (Auto) 6.6, Eos % (Auto) 0.7, [...] Clarity Clear, Urine pH 5.0, Ur Specific [place] 1.020, Urine Protein 15 H, Urine Glucose [...] 82.0 H, Lymph % (Auto) 6.5 L, [place] % (Auto) 7.5, Eos % (Auto) 2.8, [...] code * Charges/Coding Visit Charges Inpatient E&M: 32820 Subs Hosp L2 04/24/23 1314 <Electronically signed [...] as per discussion with Dr. Durham the equipment analyst on-call. 04/24/23 1403 <Electronically signed by Fior fuentes MD> Date _ Fior Turner MD Cosigner Signature (if applicable): Date cc: ~* Signed [facility] Work Phone: 1([phone]) 736-816806-18-2023 History and physical note Author Dr. Turner [facility] April 24, 2023 1:14pm Note Date/Time April 23, 2023 1:36 pm [facility] Medical Records Department [address] [place] [address] H&P Exam - Hospitalist 04/23/23 1334 MR#: [id number] Acct: [id number] Name: STEPH BAUMANN Rep #:[id number] : 1950 72 From: Fior Turner MD PCP: Dr. Manuel Beebe MD Status:AD M IN Location: [place] [address] HPI - General General Date of Admission: 04/23/23 Date of Service: 04/23/23 HPI Narrative STEPH BAUMANN, is a 72 M with a PMH as outlined who presents via the ED on 04/23/2023 with a complaint of generalised weakness from his SNF. This is his third admission over the last few weeks for generalised weakness. He was recently discharged to the residential facility on 04/16/2023 from where he presents today on account of weakness. Staff and detention also noted that he was hypoxic by [...] managed for VALENCIA and debility and deconditioning. [facility] Medical History Acute and chronic respiratory failure with hypoxia Acute heart failure with reduced ejection fraction and diastolic dysfunction Adult failure to thrive Ambulates with cane Anticoagulant long-term use Ascites Asthma Atherosclerosis of coronary artery of [place] heart without angina pectoris Atrial fibrillation and [...] never substance use type: does not use regla/religious: None seatbelt use: always ROS Constitutional Constitutional: [...] 84.7 H, Lymph % (Auto) 7.2 L, [place] % (Auto) 6.6, Eos % (Auto) 0.7, [...] Clarity Clear, Urine pH 5.0, Ur Specific [place] 1.020, Urine Protein 15 H, Urine Glucose [...] 11:10 EDT Reading Location ID and State: [facility] / [place] Tel , Service support , Assessment & [...] Patient elects to be full code. Total mjar-an-tjwm time 16 minutes. Charges/Coding Visit Charges Inpatient E&M: 86160 Init Hosp L2 Procedures Hospitalists Procedures: 71058 Advncd Care Plan 30 Min 04/24/23 1314 <Electronically signed by Fior Turner MD> Cosigner Signature (if applicable): CC: Dr. Manuel Beebe MD; Dr. Fior Turner MD~ Signed [facility] Work Phone: 1(255) 217-912506-18-[address] Olivia [facility] April 23, 2023 11:19pm Note Date/Time April 23, 2023 10:3 6am [facility] Medical Records Department [address] [place] [address] Emergency Department Summary 04/23/23 MR#: [id number] Acct: [id number] Name: STEPH BAUMANN Rep #:[id number] : 1950 72 From: Goldy Huang PCP: Dr. Manuel Beebe MD Status:AD M IN Location: [place] [address] HPI History of Present Illness Chief Complaint: [...] a headache. Patient denies any focal weakness. [facility] Medical History Acute and chronic respiratory failure with hypoxia Acute heart failure with reduced ejection fraction and diastolic dysfunction Adult failure to thrive Ambulates with cane Anticoagulant long-term use Ascites Asthma Atherosclerosis of coronary artery of [place] heart without angina pectoris Atrial fibrillation and [...] never substance use type: does not use regla/religious: None seatbelt use: always ROS ROS ED [...] 84.7 H Lymph % (Auto) 7.2 L [place] % (Auto) 6.6 Eos % (Auto) 0.7 [...] Color Urine Clarity Urine pH Ur Specific [place] Urine Protein Urine Glucose (UA) Urine Ketones [...] (Auto) Neut % (Auto) Lymph % (Auto) [place] % (Auto) Eos % (Auto) Baso % [...] Clarity Clear Urine pH 5.0 Ur Specific [place] 1.020 Urine Protein 15 H Urine Glucose [...] Signed: Kenny Culp MD at 14:55 EDT Reading Location ID and State: [address] [place] [address] Tel , Service support , Portable 1 view chest x-ray was [...] Elevated troponin Disposition Disposition: Acute Care Hospital [facility] Discharge Date/Time: 04/23/23 14:29 What to do if you have Problems For any increased pain, shortness of breath, bleeding, nausea or vomiting, chestpain, or any unexpected problems, contact your Primary Care Provider. Call [facility] ([phone]) or report to the closest Emergency Room. Call 911 if necessary. 04/23/23 2104 <Electronically signed by Goldy Olivia DO> Cosigner Signature (if applicable): CC: Dr. Manuel Beebe MD ~ Signed [facility] Work Phone: 1(132) 444-976306-16-2023 Miscellaneous Notes* Telephone Encounter - [place] - 04/22/2023 9:08 AM EDT 04-22....Patient is currently in rehab,Cancelled his appointment on 05-03, will call to r/s later any questions call Bob Ferraro [phone] [place] documented [facility] History of Present illness Narrative* Dinorah [...] 20, 2023 2:37 PM documented in this encounterGalion [facility]06-07-[address] Hope [facility] April 13, 2023 5:31pm Note Date/Time April 13, 2023 2:50p m [facility] Medical Records Department [address] [place] [address] Emergency Department Summary 04/13/23 MR#: [id number] Acct: [id number] Name: STEPH BAUMANN Rep #:[id number] : 1950 72 From: Jo-Ann Bliss DO PCP: Dr. Manuel Beebe MD Status:RE G ER Location: ED ADDENDUM by Dr. Harpreet Hope MD on 04/13/23 at 1731 UA is unremarkable. Case management has been involved with patient. He will need to be observed overnight for placement to detention. 04/13/23 1731<Electronically signed by Harpreet Hope MD> [...] not admitted. They were being seen by socially responsible investment adviser and trying to arrange physical therapy at [...] He denies abdominal pain or chest pain. [facility] Medical History Acute and chronic respiratory failure with hypoxia Acute heart failure with reduced ejection fraction and diastolic dysfunction Ambulates with cane Anticoagulant long-term use Ascites Asthma Atherosclerosis of coronary artery of [place] heart without angina pectoris Atrial fibrillation and [...] never substance use type: does not use regla/religious: None seatbelt use: always ROS ROS ED [...] 80.2 H Lymph % (Auto) 7.0 L [place] % (Auto) 8.1 Eos % (Auto) 3.3 [...] your Primary Care Provider. Call [facility] ([phone]) or report to the closest Emergency Room. Call 911 if necessary. 04/13/23 1629 <Electronically signed by Jo-Ann Bliss DO> Cosigner Signature (if applicable): CC: Dr. Manuel Beebe MD ~ Signed [facility] Work Phone: [phone]) 437-241206-07-2023 Miscellaneous Notes* Telephone Encounter - Satish Abarca [...] to help care for him. Pt has [facility] PT and OT ordered but has [...] office for review. Please call Bob at [phone]. documented in this encounterGalion Community Hospital06-06-2023 Miscellaneous Notes* Telephone Encounter - Lashonda [...] - 04/12/2023 8:36 AM EDT OK for [facility]. Schedule hospital follow up appointment. * Telephone Encounter - Reina Mcgee LPN - 04/11/2023 2:20 PM EDT Jasmyne, an nurse with [employer] , calls for VO for OT and PT. Pt is supposed to be dc'd from [facility] on 04/12. Call Jasmyne with 's VO. Reina Mcgee LPN documented in this encounterGalion Community Hospital06-06-2023 Instructions* Patient Instructions* Olga Cavazos APRN.CNS - 04/12/2023 2:45 PM EDT Drink [...] severe or concerning symptoms documented in this encounterGalion Community Hospital06-06-2023 History of Present illness Narrative* Olga Cavazos APRN.CNS - 04/12/2023 2:20 PM EDT SUBJECTIVE: DILATED [...] he is feeling well overall. Following with [facility] re: CAD s/p STEMI, diastolic [...] Noted he was unable to travel to [place] or [place] so he was instead seen at [facility] by Dr. Abreu. Diagnosed with prostate cancer, treatment with radiation planned; has begun the process for this; procedure earlier today at [facility]. Notes he had procedure yesterday at [facility] for prostate cancer. Without report of [...] dose of insulin. He was admitted to [facility] on April 10, 2023 through April [...] [address] Horton neurologist [facility]. He has a neurology appointment tomorrow, states [...] Metformin Diarrhea Even low dose caused diarrhea [place] [Hydrocodone-* Intolerance Hallucination Medications traMADol (ULTRAM) 50 [...] - 4.00 k/uL 0.60 (L) 0.79 (L) [place]% % 12.7 6.7 Abs [place] <0.87 k/uL 0.72 0.60 Eosin% % 4.1 [...] R62.7 He was seen in observation at [facility]. Advised residential facility at discharge however declined and discharged to home with home health care. Presents in clinic unable to stand without assistance and difficulty staying awake. He is hypotensive. 4. Type 2 diabetes mellitus with other specified complication, with long-term current use of insulin ([facility]) - ICD9: 250.80, V58.67, ICD10: E11.69, Z79.4 Has had improved control of late. 5. Paroxysmal atrial fibrillation ([facility]) - ICD9: 427.31, ICD10: I48.0 Followed by [facility]. On oral anticoagulation. 6. Chronic diastolic CHF (congestive heart failure) ([facility]) - ICD9: 428.32, 428.0, ICD10: I50.32 Followed by [facility], recent up titration of carvedilol from 3.125 twice daily to 6.25 twice daily. Appears he is intolerant of this, will reduce dose back down to 3.125 twice daily 7. Parkinson's disease ([facility]) - ICD9: 332.0, ICD10: G20 Being followed [...] 1 -2 week follow up Olga Cavazos APRN.DRY CELL TESTER Endorse SO not leave unattended until feeling improved. Olga Cavazos APRN.DRY CELL TESTER Medical Decision Making: Problems: Moderate: New problem with uncertain prognosis and Acute illness with systemic symptoms Risk: Moderate: Drug management Medical Decision Making Level: 4 - Moderate documented in this encounterGalion Community Hospital06-06-[address] Turner [facility] April 12, 2023 10:08am Note Date/Time April 12, 2023 10:05 am [facility] Medical Records Department [address] [place] [address] Discharge Summary 04/12/23 0959 MR#: [id number] Acct: [id number] Name: STEPH BAUMANN Rep #:[id number] : 1950 72 From: Fior Turner MD PCP: Dr. Manuel Beebe MD Status:MARY HERNANDEZ Location: [facility] TM274-8 Providers Date of Admission: 04/10/23 Date of [...] 78.1 H, Lymph % (Auto) 8.4 L, [place] % (Auto) 7.1, Eos % (Auto) 5.1 [...] (MDRD) Non-Af 61, BUN/Creatinine Ratio 20.8 H, Wgeneen101 H, Calcium 9.1 D/C Instructions Discharge Diet: [...] Health Service Charges/Coding Visit Charges Inpatient E&M: 01639 Disch Hosp >30min 04/12/23 1008 <Electronically signed by Fior Turner MD> Cosigner Signature (if applicable): CC: Dr. Manuel Beebe MD; Dr. Fior Turner MD~ Signed [facility] Work Phone: 1(724) 185-675306-06-[address] Turner [facility] April 12, 2023 7:58am Note Date/Time April 11, 2023 12:53 pm [facility] Medical Records Department [address] [place] [address] Progress Note 04/11/23 1247 MR#: [id number] Acct: [id number] Name: STEPH BAUMANN Rep #:[id number] : 1950 72 From: Fior Turner MD PCP: Dr. Manuel Beebe MD Status:AD M [facility] Location: [place] EP023-2 Subjective Subjective Patient seen and examined. He [...] 85.5 H, Lymph % (Auto) 5.4 L, [place] % (Auto) 6.7, Eos % (Auto) 1.4, [...] Clarity Clear, Urine pH 6.0, Ur Specific [place] 1.015, Urine Protein Negative, Urine Glucose (UA) [...] 82.2 H, Lymph % (Auto) 6.6 L, [place] % (Auto) 6.3, Eos % (Auto) 3.6, [...] Signed: Victorino Darby MD at 13:55 EDT Reading Location ID and State: [facility] / [place] , Service support , Physical Exam Const alert, oriented x3 [...] on Eliquis Charges/Coding Visit Charges Inpatient E&M: 37382 Subs Hosp L2 04/12/23 0758 <Electronically signed by Fior Turner MD> Fior Turner MD Cosigner Signature (if applicable): CC: ~ Signed [facility] Work Phone: 1(386) 462-223806-05-2023 Miscellaneous Notes* Telephone Encounter - Maribell Salinas [...] is going to the 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 )please advise [phone]. Patient has been identified by name and birthdate. Duration of symptoms: N/A Person calling: caregiver: bob ferraro Call patient at: on cell [phone] (home) [phone] (cell) Was an appointment scheduled: No Closing statement: Results or non-symptom based questions: Thank you for calling [facility], your call will be returned within the next business day. Mckenna Deluna Pss documented in this encounterGalion Community Hospital06-05-2023 Miscellaneous Notes* Telephone Encounter - Roxanne Gupta RN - 04/11/2023 8:32 AM EDT Faxed current med list to [facility] med/surg per request. Fax # [phone]. Confirmation received. documented in this encounterGalion Community Hospital06-04-2023 History and physical note Author Dr. Jacobs [facility] April 10, 2023 5:01pm Note Date/Time April 10, 2023 4:24p [facility] Medical Records Department [address] [place] [address] H&P Exam - Hospitalist 04/10/23 1622 MR#: [id number] Acct: [id number] Name: STEPH BAUMANN Rep #:[id number] : 1950 72 From: Leonie Jacobs MD PCP: Dr. Manuel Beebe MD Status:AD M [facility] Location: [facility] DW339-6 HPI - General General Date of Admission: [...] sepsis caretakers were apparently out of town. [facility] Medical History Acute and chronic respiratory failure with hypoxia Acute heart failure with reduced ejection fraction and diastolic dysfunction Ambulates with cane Anticoagulant long-term use Ascites Asthma Atherosclerosis of coronary artery of [place] heart without angina pectoris Atrial fibrillation and [...] never substance use type: does not use regla/religious: None seatbelt use: always ROS ROS Narrative [...] 85.5 H, Lymph % (Auto) 5.4 L, [place] % (Auto) 6.7, Eos % (Auto) 1.4, [...] Clarity Clear, Urine pH 6.0, Ur Specific [place] 1.015, Urine Protein Negative, Urine Glucose (UA) [...] Requested for PT OT eval and social insurance specialist to assist with discharge planning 2. Nonischemic [...] 18 minutes. Charges/Coding Visit Charges Inpatient E&M: 48414 Init Hosp L3 Procedures Hospitalists Procedures: 52877 Advncd Care Plan 30 Min 04/10/23 1701 <Electronically signed by Leonie Jacobs MD> Cosigner Signature (if applicable): CC: Dr. Leonie Jacobs MD; Dr. Manuel Beebe MD~ Signed [facility] Work Phone: 1(155) 142-945006-04-[address] Badillo [facility] April 10, 2023 4:17pm Note Date/Time April 10, 2023 1:23p [facility] Medical Records Department [address] [place] [address] Emergency Department Summary 04/10/23 MR#: [id number] Acct: [id number] Name: BAUMANNSTEPH Rep #:[id number] : 1950 72 From: Victorino Badillo MD PCP: Dr. Manuel Beebe MD Status:RE G ER Location: ED ADDENDUM by Dr. Victorino Badillo MD on 04/10/23 at 1617 Initially, the plan was to discharge the patient home. However, RN stated that patient appeared more confused to him. Earlier, patient stated that he lives alone, and only gets help once a week. Power of estate planning attorney had been called by RN who [...] have history of a pacemaker as well. [facility] Medical History Acute and chronic respiratory failure with hypoxia Acute heart failure with reduced ejection fraction and diastolic dysfunction Ambulates with cane Anticoagulant long-term use Ascites Asthma Atherosclerosis of coronary artery of [place] heart without angina pectoris Atrial fibrillation and [...] never substance use type: does not use regla/religious: None seatbelt use: always ROS ROS ED [...] 85.5 H Lymph % (Auto) 5.4 L [place] % (Auto) 6.7 Eos % (Auto) 1.4 [...] Clarity Clear Urine pH 6.0 Ur Specific [place] 1.015 Urine Protein Negative Urine Glucose (UA) [...] your Primary Care Provider. Call [facility] ([phone]) or report to the closest Emergency Room. Call 911 if necessary. 04/10/23 9833 <Electronically signed by Victorino Badillo MD> Cosigner Signature (if applicable): CC: Dr. Manuel Beebe MD ~ Signed [facility] Work Phone: 1(946) 260-713206-04-[address] Badillo [facility] April 10, 2023 4:17pm Note Date/Time April 10, 2023 1:23p [facility] Medical Records Department [address] [place] [address] Emergency Department Summary 04/10/23 MR#: [id number] Acct: [id number] Name: STEPH BAUMANN Rep #:[id number] : 1950 72 From: Victorino Badillo MD PCP: Dr. Manuel Beebe MD Status:RE G ER Location: ED ADDENDUM by Dr. Victorino Badillo MD on 04/10/23 at 1617 Initially, the plan was to discharge the patient home. However, RN stated that patient appeared more confused to him. Earlier, patient stated that he lives alone, and only gets help once a week. Power of estate planning attorney had been called by RN who [...] in stable condition. 04/10/23 1617<Electronically signed by Vicotrino Badillo MD> Cosigner Signature (if applicable): cc: [...] have history of a pacemaker as well. [facility] Medical History Acute and chronic respiratory failure with hypoxia Acute heart failure with reduced ejection fraction and diastolic dysfunction Ambulates with cane Anticoagulant long-term use Ascites Asthma Atherosclerosis of coronary artery of [place] heart without angina pectoris Atrial fibrillation and [...] never substance use type: does not use regla/religious: None seatbelt use: always ROS ROS ED [...] 85.5 H Lymph % (Auto) 5.4 L [place] % (Auto) 6.7 Eos % (Auto) 1.4 [...] Clarity Clear Urine pH 6.0 Ur Specific [place] 1.015 Urine Protein Negative Urine Glucose (UA) [...] your Primary Care Provider. Call [facility] ([phone]) or report to the closest Emergency Room. Call 911 if necessary. 04/10/23 1553 <Electronically signed by Victorino Badillo MD> Cosigner Signature (if applicable): CC: Dr. Manuel Beebe MD ~ Signed [facility] Work Phone: 1(182) 619-546605-17-2023 History of Present illness Narrative* Manuel Beebe MD - 03/23/2023 8:18 AM EDT This note was created using [employer]. Subjective Steph Baumann is a 72 year [...] In addition to 3.125mg in packets from [facility] baclofen (LIORESAL) 20 mg tablet [...] Height as of 03/09/23: 177.8 cm (5' 10). Weight as of this encounter: 78.5 kg [...] sleep. Manuel Beebe MD documented in this encounterGalion [facility] Hospital05-09-2023 Miscellaneous Notes* Telephone Encounter - Netta [...] calling for results. Agata documented in this encounterGalion Community Hospital05-09-2023 Miscellaneous Notes* Telephone Encounter - Netta Espinal RN - 03/15/2023 11:08 AM EDT Results reviewed. See phone encounter dated 03/09/23. Netta Espinal RN March 15, 2023 11:08 AM * Telephone Encounter - Agata Pinto - 03/11/2023 10:30 AM EDT 03/11/23 Patient calling for lab results, If you can call his caregiver, Bob [phone] Agata documented in this encounterGalion Community Hospital05-03-2023 History of Present illness Narrative* Merlin [...] - Patient to discuss starting carvedilol with equipment analyst (ideally 6.25mg PO BID). Patient will also [...] (97 F) (Temporal) Ht 177.8 cm (5' 10) Wt 78 kg (172 lb) SpO2 98% BMI 24.68 kg/m general: somewhat frail - in wheelchair NAD neuro: no asterixis Impression: cirrhosis, stable MELD August today ??? Rec: continue same program 2. new labs and US 6 months I will call after CMP is available Merlin Loredo MD documented in this encounterGalion Community Hospital04-21-2023 History of Present illness Narrative* Dinorah Posada RN - 02/25/2023 1:36 PM EDT CDM Telephonic Outreach Provider Action/FYI CDM: CHF, Asthma Called Pt, unable to leave a message to verify symptom status and needs. Contacted for: Routine Telephonic Outreach Contact made with patient: No, unable to leave message. Will reattempt call Dinorah Posada RN February 25, 2023 1:37 PM documented in this encounterGalion Community Hospital04-05-2023 History of Present illness Narrative* Dinorah [...] 09, 2023 5:30 PM documented in this encounterGalion Community Hospital03-29-2023 History of Present illness Narrative* Dinorah Posada RN - 02/02/2023 5:19 PM EDT [facility] Provider Action/FYI: CDM: CHF, Asthma [...] 02, 2023 5:19 PM documented in this encounterGalion Community Hospital02-28-2023 History of Present illness Narrative* Dinorah Posada RN - 01/04/2023 5:08 PM EST [facility] Provider Action/FYI: CDM: CHF/ Asthma [...] 04, 2023 5:08 PM documented in this encounterGalion Community Hospital02-27-2023 History of Present illness Narrative* Dinorah Posada RN - 01/03/2023 10:10 AM EST [facility] Provider Action/FYI: CDM: CHF, Asthma [...] RN - 12/30/2022 12:26 PM EST [facility] Provider Action/FYI: CDM: CHF, Asthma [...] 30, 2022 12:26 PM documented in this encounterGalion Community Hospital02-15-2023 Miscellaneous Notes* Telephone Encounter - Manuel [...] patient. Mckenna Deluna Pss documented in this encounterGalion Community Hospital01-18-2023 History of Present illness Narrative* Dinorah [...] RN - 11/22/2022 10:20 AM EST [facility]RE[facility] Provider Action/FYI: CDM: CHF Called [...] Track Pt. Outreach - End Outreach Dinorah Posdaa RN November 22, 2022 10:20 AM documented in this encounterGalion Community Hospital12-13-2022 History of Present illness Narrative* Dinorah Posada RN - 10/19/2022 5:51 PM EST [facility] Provider Action/FYI: CDM: CHF / [...] RN - 10/18/2022 9:58 AM EST [facility] Provider Action/FYI: CDM: CHF / Asthma 10/18/22 Left a message to verify symptom status and needs Contact made with patient: No - Left message Hello my name is Dinorah Posada RN your Livestock Judging Coach from [facility] I am callingtoday for your bi-weekly [...] 18, 2022 9:58 AM documented in this encounterGalion Community Hospital11-28-2022 Miscellaneous Notes* Telephone Encounter - Pam Simpson Ma - 10/04/2022 8:25 AM EST Received diabetic supply orders from [facility]. Confirmed with patient, he does not not use this company and buys supplies out of pocket. Disregard future requests. documented in this encounterGalion Community Hospital11-09-2022 History of Present illness Narrative* Dinorah Posada RN - 09/15/2022 12:14 PM EST [facility]RE[facility] Provider Action/FYI: Called Pt left a message to verify CHF/ Asthma or other symptoms and needs. Contact made with patient: No - Left message Hello my name is Dinorah Posada RN your Livestock Judging Coach from [facility] I am callingtoday for your bi-weekly [...] 15, 2022 1:24 PM documented in this encounterGalion Community Hospital10-27-2022 Instructions* Patient Instructions* Margareth Rivas MD - 09/02/2022 12:11 PM EDT Thank you for coming to your visit with Dr. Loredo. Below are some of the things we discussed: Please discuss with your equipment analyst the followin) Starting carvedilol 2 times per [...] Loredo in 6 months. documented in this encounterGalion Community Hospital10-27-2022 History of Present illness Narrative* Merlin [...] - Patient to discuss starting carvedilol with equipment analyst (ideally 6.25mg PO BID). Patient will also [...] months Merlin Loredo MD documented in this encounterGalion Community Hospital10-07-2022 History of Present illness Narrative* Albino Copeland RN - 08/13/2022 3:13 PM EDT [facility]LEPH[facility] OUTREACH Provider Action/FYI: Call to Pt, left a message to verify CHF/ Asthma and other symptom status and needs. Contact made with patient: No - Left message Hello my name is Dinorah Posada RN your Livestock Judging Coach [facility] I am callingtoday for your bi-weekly [...] 13, 2022 3:13 PM documented in this encounterGalion Community Hospital09-22-2022 Miscellaneous Notes* Telephone Encounter - Lashnoda Moore LPN - 07/29/2022 4:15 PM EDT Note and letter faxed to [facility] and patient notified. However patient states [...] an appointment. * [facility] 07/20/2022 10:55 AM EDT Bob calling back about this RX being sent with office notes attached that notes patient needs themobility power operated chair. Please send this to [facility] at fax # [phone] and office number is [phone] * Telephone Encounter - Sania Eagle LPN - 07/15/2022 2:10 PM EDT Called [facility] this is correct. They just need a prescription for this and then taxes will be voided. Do not know how to enter this to come up this way. * Telephone Encounter - Becky Parekh Pss - 07/15/2022 1:59 PM EDT Bob Ferraro called back with the phone and fax for [facility]: Bob can be reached at [phone]. * Telephone Encounter - Kendra Bennett RN - 07/15/2022 12:53 PM EDT Bob Ferraro called in and was reporting that Pt is still having mobility issues from when he fractured his hip in February. She was looking at the [employer] Mobility Scooter at [facility]. She reports if a provider writes a letter for the Pt then they can get the tax paid for. She states the scooter is $2300, but the Pt is scared of falling and with this one he would be able to use itin his apartment. Please call her back and advise. documented in this encounterGalion Community Hospital09-13-2022 Miscellaneous Notes* Telephone Encounter - Jessica Xiong [place] - 07/20/2022 11:11 AM EDT Patient unable [...] pm Please call Bob, his caregiver at [phone] documented in this encounterGalion Community Hospital08-18-2022 History of Present illness Narrative* Albino Copeland RN - 06/24/2022 11:38 AM EDT [facility] Provider Action/FYI: Call to Pt, left a message to verify CHF/ Asthma symptoms, and post Rehab status. Contact made with patient: No - Left message Hello my name is Dinorah Posada RN your Livestock Judging Coach [facility] I am callingtoday for your bi-weekly [...] RN - 06/23/2022 1:29 PM EDT [facility] Provider Action/FYI: Call to Pt, [...] 23, 2022 1:29 PM documented in this encounterGalion Community Hospital08-09-2022 History of Present illness Narrative* Munira Dickerson MD - 06/15/2022 4:20 PM EDT [facility] [address] [facility] [address] [facility] [phone] Steph Buamann is a 72 y.o. male being seen [...] improve. Munira Dickerson MD documented in this [id number] Miscellaneous Notes* Telephone Encounter - Pam Simpson Ma - 06/15/2022 1:30 PM EDT BRENNEN Hallman * Telephone Encounter - Manuel Beebe MD - 06/14/2022 12:09 PM EDT Jerome hamlin * Telephone Encounter - Deedee Florian LPN - 06/14/2022 9:50 AM EDT [facility] from [facility] calling [facility] for PT, plan of care 2 visits weekly for 3 weeks working on fall prevention. Patient was recently in [facility] ER for high blood sugars. documented in this encounterGalion Community Hospital08-02-2022 History of Present illness Narrative* Albino Copeland RN - 2022 10:03 AM EDT [facility] Provider Action/FYI: Call to Pt [...] Copeland RN - 06/07/2022 11:27 AM EDT [facility]RE[facility] Provider Action/FYI: Call to Pt, left a message related to CHF/ Asthma symptoms or needs. Contact made with patient: No - Left message Hello my name is Dinorah Posada RN your Livestock Judging Coach [facility] I am callingtoday for your bi-weekly [...] 07, 2022 11:27 AM documented in this encounterGalion Community Hospital07-14-2022 History of Present illness Narrative* Albino Copeland RN - 05/20/2022 1:54 PM EDT [facility] Provider Action/FYI: Call to Pt left a message to verify CHF/ Asthma symptoms or needs. Contact made with patient: No - Left message Scout my name is Dinorah Posada RN your Livestock Judging Coach [facility] I am callingtoday for your bi-weekly [...] my name is Dinorah Posada RN your Livestock Judging Coach from the [facility] I am callingtoday for your bi-weekly [...] 19, 2022 9:09 AM documented in this encounterGalion Community Hospital07-13-2022 Miscellaneous Notes* Telephone Encounter - Manuel Beebe MD - 05/19/2022 1:03 PM EDT Okayed * Telephone Encounter - Jessica Lund - 05/19/2022 12:44 PM EDT Patient calling back, he and his POA confirmed they have called [facility] directly. * Telephone Encounter - Megan Rosales Pss [...] a message that he needs to call [facility] and re-establish his account with them since his POA put the account on hold while he was at a rehab facillity/hospital. Patient aware RX will be sent to pharmacy. No need to notify patient. Megan Rosales Pss documented in this encounterGalion Community Hospital07-12-2022 History of Present illness Narrative* Munira Dickerson MD - 05/18/2022 4:28 PM EDT [facility] [address]) [facility] [address] [facility] [id number] Steph Baumann is a 71 y.o. male [...] initial encounter ([facility]LY [facility]) 2. Low back pain without sciatica, unspecified back pain laterality, unspecified chronicity Return in about 4 weeks (around 06/15/2022). Munira Dickerson MD documented in this [id number] Miscellaneous Notes* Telephone Encounter - Lashonda Moore LPN - 05/13/2022 4:18 PM EDT Friend Bob notified that handipcap mika is ready for fern picker in medical records and she verbalized understanding * Telephone Encounter - Olga Cavazos APRN.CNS - 05/13/2022 4:08 PM EDT ok * Telephone Encounter - Cyndee Hill RN - 05/12/2022 11:07 AM EDT Friend (Bob) calls to request a prescription for a handicap placard d/t patient receiving a letter from [facility] stating he needs an updated order. Pended per request. Bob will fern picker in medical records when ready and requests calling her at [phone]. Cyndee Hill RN documented in this encounterGalion Community Hospital06-28-2022 Miscellaneous Notes* Telephone Encounter - Kendra Bennett RN - 05/04/2022 10:57 AM EDT Sent request to Medical Records at [facility] to send over Medication list from TCU. Having them send to fax # [phone]. * Telephone Encounter - Cyndee Hill RN [...] RN - 04/30/2022 8:34 AM EDT Bob Matthew calls on behalf of patient. Patient was seen in [facility] ER for chest pain. Patient was worked up in the ER. Per Bob ER thinks it is more anxiety than cardiac. While on TCU patient was prescribed something for anxiety. Bob asking if provider can send in a prescription to help with anxiety to [facility] pharmacy? Please review and advise, Samina Watt RN documented in this encounterGalion Community Hospital06-15-2022 History of Present illness Narrative* Albino [...] like to speak with a social work automobile washer steam to help give you support for any [...] you up for automated weekly questionnaires through [employer]. This is an easy way for us [...] 21, 2022 1:16 PM documented in this encounterGalion Community Hospital06-10-2022 History of Present illness Narrative* Jana Lara, [facility] - 04/16/2022 10:00 AM EDT Primary Care Pharmacy Visit REASON FOR CONSULT: DM GOALS: A1c < 8% CONSULTING PROVIDER: Olga Cavazos APRN.DRY CELL TESTER Date of Consult: 01/08/22 Steph Baumann is a 71 year old male presenting for follow up visit by telephone. Patient consents to pharmacy collaborative practice agreement. Last seen by Olga Cavazos APRN.DRY CELL TESTER on 01/12/22. Atlast DRY CELL TESTER appt, patient was encouraged to follow up with [facility]. At that visit provider also noted that spironolactone was stopped, and bumex dose decreased due to hypotension, was encouraged to recheck BMP. At PharmD visit on 02/02/22, blood sugar testing supplies were ordered, and clarified medication discrepancies with cardiology. INTERIM HISTORY: Since last visit, patient had hip fracture and was following at [facility]. Discharged home on 04/14 Patient reports his readings are doing well. States fasting BG this morning was 124 [...] not present. Adherence: denies missed doses. Pharmacy: [facility] Diabetes supplies: [facility]: ACTIVE PROBLEM LIST Brain Tumor (Hcc) [...] Metformin Diarrhea Even low dose caused diarrhea [place] [Hydrocodone-* Intolerance Hallucination Current Outpatient Medications Medication [...] 93 03/26/2021 The ASCVD Risk score (Onel DC Jr., et al., 2013) failed to calculate for the following reasons: The patient has a prior HI or stroke diagnosis Albumin/Creat Ratio (mg/g) Date [...] on 04/28/22. Patient to follow up with PharmRobina, TBD once labs result Patient verbalized understanding of instructions. Jana Lara PharmD, BCACP Primary Care Clinical Pharmacist [facility] The majority of the pharmacy visit (> 50%) was spent counseling and/or coordinating care for thepatient. [Telephonic] time was 16 minutes. documented in this encounterGalion Community Hospital06-02-2022 Miscellaneous Notes* Telephone Encounter - Sania Eagle LPN - 04/08/2022 4:17 PM EDT Order called back to [facility]. * Telephone Encounter - Manuel Beebe MD - 04/08/2022 4:01 PM EDT Will follow * Telephone Encounter - Kayleigh Hummel LPN - 04/06/2022 9:21 AM EDT Jasmyne from [facility] reports pt will be discharging from TCU at [facility] on 04/14/22 following a right hipfx. Will need nursing & PT, will pcp follow? Kayleigh Hummel LPN documented in this encounterGalion Community Hospital05-31-2022 History of Present illness Narrative* Albino Copeland RN - 04/06/2022 4:15 PM EDT PRIMARY CARE COORDINATION QUICK NOTE Provider Action/DOROTA Routed update to Dr. Parker Nelson with Pt he [facility], Instructed to schedule follow up Appt with Dr. Beebe/ Olga Cavazos, he verbalized understanding and appreciation for the follow-up. Patient identified by name and date . Dinorah Posada RN April 06, 2022 4:15 PM documented in this encounterGalion Community Hospital05-26-2022 Miscellaneous Notes* Telephone Encounter - Jana aLra RPh - 04/01/2022 2:45 PM EDT Noted, will follow up with patient at scheduled visit time. Jana Lara PharmD, KHUSHBU Primary Care Clinical Pharmacist [facility] * Telephone Encounter - Samina Smith - 04/01/2022 2:39 PM EDT Bob returned your call. [facility]. Tentative discharge date is 04/14/22 and a follow up appointment has been scheduled for 04/16. If there are any issues or concerns, please call Bob at [phone]. Samina Smith * Telephone Encounter - Jana Lara RPh - 04/01/2022 1:36 PM EDT Patient cancelled last pharmacy visit and is due for diabetes follow up to review blood sugars. Called and spoke with patient to offer pharmacy visit. Patient states he relies on caregiver Bob to make appts. Called and Left voicemail for Bob asking to return call to [phone] to schedulepharmacy visit. Jana Lara PharmD, ELACP Primary Care Clinical Pharmacist [facility] documented in this encounterGalion Community Hospital05-20-2022 History of Present illness Narrative* Olga Cavazos APRN.DRY CELL TESTER - 03/26/2022 4:06 PM EDT noted, monitor for discharge to SNF/home. Obtain records when available. * Albino Copeland RN - 03/26/2022 2:32 PM EDT [facility] Provider Action/FYI: Routed update to Dr. Beebe- No Action required Spk with Pt he reported fall with fracture of Right Hip, he noted surgical repair, is currently at [facility], undetermined Length of Stay. Contact [...] RN - 03/25/2022 4:41 PM EDT [facility] Provider Action/FYI: Call to Pt to verify symptom status and needs. Contact made with patient: No - Left message Rosalo my name is Dinorah Posada RN your Livestock Judging Coach [facility] I am calling today for your bi-weekly check in. I am sorry I missed your call. I will reach out to you again tomorrow. (if the third call I will reach out to you again next week) Enter next patient outreach date forthe following using the Track Pt Outreach. End outreach. Dinorah Posada RN March 25, 2022 4:41 PM documented in this encounterGalion Community Hospital05-17-2022 History of Present illness Narrative* Munira Dickerson MD - 03/23/2022 4:05 PM EDT [facility] [address]) [facility] [address] [facility] [id number] Steph Baumann is a 71 y.o. male [...] No periprosthetic fractures. Intact right hip replacement. [employer] Workstation ID: [id number] 1. Hip fracture requiring operative repair, right, closed, initial encounter ([facility]) 2. Low back pain without sciatica, unspecified back pain laterality, unspecified chronicity Return for post mri. Munira Dickerson MD documented in this [id number] History of Present illness Narrative* Albino Copeland RN - 03/16/2022 4:[address] [facility] TELEPHONIC OUTREACH Provider Action/FYI: Call to Pt left a message to verify CHF/ Asthma symptom status and needs Contact made with patient: No - Left message Hello my name is Dinorah Posada RN your Livestock Judging Coach from [facility] I am calling today for your [...] Copeland RN - 03/15/2022 1:[address] [facility] TELEPHONIC OUTREACH Provider Action/FYI: Call to Pt left a message to verify CHF/ Asthma symptom status and needs Contact made with patient: No - Left message Hello my name is Dinorah Posada RN your Livestock Judging Coach from [facility] I am calling today for your [...] 15, 2022 1:51 PM documented in this encounterGalion Community Hospital04-27-2022 History of Present illness Narrative* Albino Copeland RN - 03/03/2022 11:15 AM EDT [facility] Provider Action/FYI: Call to Pt left a message to verify CHF/ Asthma symptoms and needs. Contact made with patient: No - Left message Hello my name is Dinorah Posada RN your Livestock Judging Coach from [facility] I am calling today for your bi-weekly check in. I am sorry I missed your call. I will reach out to you again tomorrow. (if the third call I will reach out to you again next week) Enter next patient outreach date forthe following using the Track Pt Outreach. End outreach. Dinorah Posada RN March 03, 2022 11:16 AM documented in this encounterGalion Community Hospital04-20-2022 History of Present illness Narrative* Abby Chang MA - 02/24/2022 3:33 PM EDT WILBER FROM [facility] CALLED STATING THERE WAS SOME ISSUES [...] MADE FOR 4 WEEKS. documented in this [id number] History of Present illness Narrative* Albino Copeland RN - 02/22/2022 9:12 AM EDT [facility] Provider Action/FYI: Call to Pt left a message to verify CHF / Asthma or other symptoms. Contact made with patient: No - Left message Hello my name is Dinorah Posada RN your Livestock Judging Coach [facility] I am calling today for your bi-weekly check in. I am sorry I missed your call. I will reach out to you again tomorrow. (if the third call I will reach out to you again next week) Enter next patient outreach date forthe using the Track Pt Outreach. End outreach. Dinorah Posada RN February 22, 2022 9:13 AM documented in this encounterGalion Community Hospital04-08-2022 Miscellaneous Notes* Telephone Encounter - Jana Lara RPh - 02/12/2022 4:13 PM EDT Appt cancelled per patient request. Jana Lara, PharmD, BCACP Primary Care Clinical Pharmacist [facility] * Telephone Encounter - Olga Cavazos APRN.CNS - 02/12/2022 4:06 PM EDT Ok, monitor for discharge and reschedule as appropriate. * Telephone Encounter - Jazmin Tejeda LPN - 02/12/2022 11:57 AM EDT EDGAR Samuel for pt called to let you know pt fell on 02-09-22 and fractured his hip. Was at [facility] then transferred to [facility]. He is still there as of 02-12-22 and not sure what is goingto be done next. He has an phone apt scheduled with you Jaan on 02-16-22 and they are cancelling this for now. If you want you can reach Bob Ferraro at [phone]. Sending to PCP as FYI. Jazmin Tejeda LPN documented in this [facility] of Present illness Narrative* Ablino Copeland RN - 02/05/2022 4:[address] [facility] TELEPHONIC OUTREACH Provider Action/FYI: Call to Pt left a message to verify CHF/ Asthma symptom status. Contact made with patient: No - Left message Scout my name is Dinorah Posada RN your Livestock Judging Coach [facility] the [facility] I am calling today for your [...] Copeland RN - 02/04/2022 8:[address] [facility] TELEPHONIC OUTREACH Provider Action/FYI: Call to Pt left a message to verify CHF/ Asthma symptom status. Contact made with patient: No - Left message Scout my name is Dinorah Posada RN your Livestock Judging Coach [facility] I am calling today for your [...] 04, 2022 8:35 AM documented [facility] Miscellaneous Notes* Telephone Encounter - Jana Lara, [facility] - 02/03/2022 4:41 PM EDT Called and spoke with pharmacy as pt reports not able to fern picker new meter/test strips. Was only given [...] LARA, PharmD, BCACP Primary Care Clinical Pharmacist [facility] documented [facility] Miscellaneous Notes* Telephone Encounter - Dot Escoto LPN - 02/02/2022 4:13 PM EDT Khoi is asking for directions on glucose meter. Dot Escoto LPN * Telephone Encounter - Reina Mcgee LPN - 02/02/2022 4:10 PM EDT Khoi with [facility] calls to report the directions on lancets have twice daily and as needed. Khoi reports that Medicare does not allow as needed. Rx has to say specific number of [...] patient. Reina Mcgee LPN documented [facility] History of Present illness Narrative* Jana Lara RPh - 02/02/2022 3:00 PM EDT Primary Care Pharmacy Visit REASON FOR CONSULT: DM GOALS: A1c < 8% CONSULTING PROVIDER: Olga Cavazos APRN.DRY CELL TESTER Date of Consult: 01/08/22 Steph Baumann is [...] a pharmacist. Last seen by Olga Cavazos APRN.DRY CELL TESTER on 01/12/22. At last DRY CELL TESTER appt, patient was encouraged to follow up [...] not present. Adherence: denies missed doses. Pharmacy: [facility] Diabetes supplies: [facility]: ACTIVE PROBLEM LIST Brain Tumor (Hcc) [...] Metformin Diarrhea Even low dose caused diarrhea [place] [Hydrocodone-* Intolerance Hallucination Medication List Medication Directions [...] of water with humidification. lifetime supplies. Dx ABLINO cyanocobalamin (VITAMIN B-12) 1,000 mcg tab Take [...] following reasons: The patient has a prior HI or stroke diagnosis Albumin/Creat Ratio (mg/g) Date Value 11/06/2019 24 PHARMACOTHERAPY ASSESSMENT/PLAN: 1. Controlled type 2 diabetes mellitus without complication, with long-term current use of insulin (FORM[facility]LY [facility]) - ICD9: 250.00, V58.67, ICD10: E11.9, Z79.4 [...] medications. Will contact external cardiology provider - [facility] for clarification. See telephone encounter for medication clarification Follow up: Patient is scheduled to see PCP on 03/29/22. Patient to follow up with PharmD on 02/16/22. Patient verbalized understanding of instructions. Jana Lara, Butch, BCACP Primary Care Clinical Pharmacist [facility] The majority of the pharmacy visit (> 50%) was spent counseling and/or coordinating care for thepatient. [Face to Face] time was 57 minutes. documented in this encounterGal[facility]07[facility] Miscellaneous Notes* Telephone Encounter - Manuel [...] Gupta RN - 05/08/2021 9:[address] [facility]- reports patient's weight is 147 pounds today. She believes patient may have lost 30 pounds since January. Our weight checks: 04-08-21: 151 # 04-03-21: 148 # 02-13-21: 152 # 01-08-: 173 # 05-28-20: 171 # documented in this [facility]Gal[facility]03[facility] History of Past illness Narrative* Problem [...] of this encounter (statuses as of 10/04/2022) [facility] Narrative* Problem [...] of this encounter (statuses as of 10/11/2022) [facility] Narrative* Problem [...] of this encounter (statuses as of 10/19/2022) [facility] Narrative* Problem [...] of this encounter (statuses as of 11/24/2022) [facility] Narrative* Problem [...] of this encounter (statuses as of 12/23/2022) [facility] Narrative* Problem [...] of this encounter (statuses as of 01/03/2023) [facility] Narrative* Problem [...] of this encounter (statuses as of 01/05/2023) [facility] Narrative* Problem [...] of this encounter (statuses as of 02/02/2023) [facility] Narrative* Problem [...] of this encounter (statuses as of 02/10/2023) [facility] Narrative* Problem [...] of this encounter (statuses as of 02/25/2023) [facility] Narrative* Problem [...] of this encounter (statuses as of 03/10/2023) [facility] Narrative* Problem [...] of this encounter (statuses as of 03/10/2023) [facility] Narrative* Problem [...] of this encounter (statuses as of 03/15/2023) [facility] Narrative* Problem [...] of this encounter (statuses as of 04/11/2023) [facility] Narrative* Problem [...] of this encounter (statuses as of 04/12/2023) [facility] Narrative* Problem [...] of this encounter (statuses as of 04/13/2023) [facility] Narrative* Problem [...] of this encounter (statuses as of 04/13/2023) [facility] Narrative* Problem [...] of this encounter (statuses as of 04/13/2023) [facility] Narrative* Problem [...] of this encounter (statuses as of 04/22/2023) [facility] Narrative* Problem [...] of this encounter (statuses as of 04/25/2023) [facility] Narrative* Problem [...] of this encounter (statuses as of 06/28/2023) [facility] Narrative* Problem [...] of this encounter (statuses as of 07/22/2023) [facility] Narrative* Problem [...] of this encounter (statuses as of 08/13/2023) [facility] Narrative* Problem [...] of this encounter (statuses as of 09/06/2023) [facility] Narrative* Problem [...] of this encounter (statuses as of 09/15/2023) [facility] Narrative* Problem [...] of this encounter (statuses as of 09/15/2023) [facility] Narrative* Problem [...] of this encounter (statuses as of 09/21/2023) [facility] Narrative* Problem [...] of this encounter (statuses as of 09/23/2023) [facility] Narrative* Problem [...] of this encounter (statuses as of 09/30/2023) [facility] Narrative* Problem [...] of this encounter (statuses as of 12/13/2023) [facility] Narrative* Problem [...] of this encounter (statuses as of 12/20/2023) [facility] Narrative* Problem [...] of this encounter (statuses as of 12/22/2023) [facility] Narrative* Problem [...] of this encounter (statuses as of 12/22/2023) [facility] Narrative* Problem [...] of this encounter (statuses as of 12/27/2023) [facility] Narrative* Problem [...] of this encounter (statuses as of 01/06/2024) [facility] Narrative* Problem [...] of this encounter (statuses as of 01/19/2024) [facility] note* Diagnosis Onset Date Resolution Status Cirrhosis acute [id number] acute Biventricular ICD (implantab le cardioverter-defibrillator) in [...] 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 [id number] acute [id number] acute [facility] Work Phone: 1(753) 876-180412-06-2019 Evaluation note* Diagnosis Onset Date Resolution Status [...] 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 [id number] acute KTC-[id number] acute Asthma acute Atrial fibrillation acute Benign prostate hyperplasia acute Cirrhosis of liver acute Closed right hip fracture ac [place] Debility acute Diabetes mellitus acute Gastroesophageal reflux disease acute FARIAS (nonalcoholic steatohepatitis) acute Prostate cancer acute Seizure disorder acute Stroke acute Chronic kidney disease, stage 3a chronic Chronic systolic congestive heart failure chronic Prostate cancer acute [id number] acute [id number] acute [facility] Work Phone: 1(624) 262-965612-06-2019 Evaluation note* Diagnosis Onset Date Resolution Status [...] 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 [id number] acute ZMT-[id number] acute Asthma acute Atrial fibrillation acute Benign prostate hyperplasia acute Cirrhosis of liver acute Closed right hip fracture ac [place] Debility acute Diabetes mellitus acute Gastroesophageal reflux disease acute FARIAS (nonalcoholic steatohepatitis) acute Prostate cancer acute Seizure disorder acute Stroke acute Chronic kidney disease, stage 3a chronic Chronic systolic congestive heart failure chronic Prostate cancer acute [id number] acute UWI-[id number] acute [id number] acute [facility] Work Phone: 1(565) 132-295012-06-2019 Evaluation note* Diagnosis Onset Date Resolution Status [...] le cardioverter-defibrillator) in place October 12, 2019 [facility] onic Chronic combined systolic an d diastolic CHF (congestive heart failure) chronic Longstanding persistent atrial fibrillation chronic Nonischemic cardiomyopathy c hronic 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 Right ventricular systolic dysfunction resolved Cirrhosis acute 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 October 12, 2019 [facility] onic Chronic combined systolic an d diastolic CHF (congestive heart failure) chronic Essential (primary) hypertension chronic Nonischemic cardiomyopathy c hronic 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 October 12, 2019 [facility] Chronic combined systolic an d diastolic CHF (congestive heart failure) chronic Longstanding persistent atrial fibrillation chronic Nonischemic cardiomyopathy c hronic 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 [id number] acute UXG-[id number] acute Atrial fibrillation acute Benign prostate hyperplasia acute Cirrhosis of liver acute Debility acute Diabetes mellitus acute Gastroesophageal reflux disease acute FARIAS (nonalcoholic steatohepatitis) acute Prostate cancer acute Seizure disorder acute Stroke acute Chronic kidney disease, stage 3a chronic Asthma resolved Chronic systolic congestive heart failure resolved Closed right hip fracture re solved Prostate cancer acute [id number] acute [id number] acute NXG-[id number] acute Acute heart failure with red uced ejection fraction and diastolic dysfunction acute Chest pain acute Acute and chronic respirator y failure with hypoxia chronic [facility] Work Phone: [phone]) 901-877512-06-2019 Evaluation note* Diagnosis Onset Date Resolution Status [...] le cardioverter-defibrillator) in place October 12, 2019 [facility] Chronic combined systolic an d diastolic CHF (congestive heart failure) chronic Longstanding persistent atrial fibrillation chronic Nonischemic cardiomyopathy c hronic 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 Right ventricular systolic dysfunction resolved Cirrhosis acute 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 October 12, 2019 [facility] Chronic combined systolic an d diastolic CHF (congestive heart failure) chronic Essential (primary) hypertension chronic Nonischemic cardiomyopathy c hronic 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 October 12, 2019 [facility] Chronic combined systolic an d diastolic CHF (congestive heart failure) chronic Longstanding persistent atrial fibrillation chronic Nonischemic cardiomyopathy c hronic 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 [id number] acute JTN-[id number] acute Atrial fibrillation acute Benign prostate hyperplasia acute Cirrhosis of liver acute Debility acute Diabetes mellitus acute Gastroesophageal reflux disease acute FARIAS (nonalcoholic steatohepatitis) acute Prostate cancer acute Seizure disorder acute Stroke acute Chronic kidney disease, stage 3a chronic Asthma resolved Chronic systolic congestive heart failure resolved Closed right hip fracture re solved Prostate cancer acute [id number] acute [id number]-[id number] acute EYW-[id number] acute Acute heart failure with red uced ejection fraction and diastolic dysfunction acute Chest pain acute Acute and chronic respirator y failure with hypoxia chronic 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 October 12, 2019 [facility] Chronic combined systolic an d diastolic CHF (congestive heart failure) chronic Longstanding persistent atrial fibrillation chronic Nonischemic cardiomyopathy c hronic 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 [facility] Work Phone: [phone]) 883-975412-06-2019 Evaluation note* Diagnosis Onset Date Resolution Status [...] of CVA (cerebrovascular accident) chronic Polyneuropathy chronic [id number] acute Abnormality of gait and mobility chronic Absent pedal pulses chronic History of CVA (cerebrovascular accident) chronic Polyneuropathy [facility] Work Phone: [phone] 108-674812-06-2019 Evaluation note* Diagnosis Onset Date Resolution Status 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 October 12, 2019 [facility] Chronic combined systolic an d diastolic CHF (congestive heart failure) chronic Longstanding persistent atrial fibrillation chronic Nonischemic cardiomyopathy c hronic 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 Parkinson's disease acute [id number] acute Abnormality of gait and mobility chronic Absent pedal pulses chronic History of CVA (cerebrovascular accident) chronic Polyneuropathy chronic [id number] acute [facility] Work Phone: [phone] 420-324112-06-2019 Evaluation note* Diagnosis Onset Date Resolution Status [id number] acute Biventricular ICD (implantab le cardioverter-defibrillator) in [...] acut e VALENCIA (acute kidney injury) [place] Generalized weakness acute Transient hypotension acute VALENCIA (acute kidney injury) ac [place] Elevated troponin acute Generalized weakness acute [facility] Work Phone: [phone] 204-276312-06-2019 Evaluation note* Diagnosis Onset Date Resolution Status [id number] acute Biventricular ICD (implantab le cardioverter-defibrillator) in [...] acut e VALENCIA (acute kidney injury) [place] Generalized weakness acute Transient hypotension acute Adult failure to thrive acut e VALENCIA (acute kidney injury) ac [place] Elevated troponin acute Generalized weakness acute [facility] Work Phone: [phone] 837-733212-06-2019 Evaluation note* Diagnosis Onset Date Resolution Status [...] acute VALENCIA (acute kidney injury) re solved [facility] Work Phone: [phone] 552-465412-06-2019 Evaluation note* Diagnosis Onset Date Resolution Status [...] injury) re solved Toxic metabolic encephalopathy resolved [id number] acute [facility] Work Phone: [phone] 764-270112-06-2019 Evaluation note* Diagnosis Onset Date Resolution Status Atrial fibrillation acute Cirrhosis acute 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 October 12, 2019 [facility] Chronic combined systolic an d diastolic CHF (congestive heart failure) chronic Essential (primary) hypertension chronic Nonischemic cardiomyopathy c hronic [facility] Work Phone: [phone] 631-531412-06-2019 Evaluation note* Diagnosis Onset Date Resolution Status Admit Date Atrial fibrillation acute Augus t 2024 1:17pm Cirrhosis acute June 18, 2 025 1:17pm Biventricular ICD (implantable cardioverter-defibrillator) in place October 12, 2019 chronic June 18, 2025 1:17pm Chronic combined systolic and diastolic CHF (congestive heart failure) chronic 2024 1:17pm Essential (primary) hypertension chronic June 18 1:17pm Nonischemic cardiomyopathy chronic June 18, 2025 1:17pm [facility] Work Phone: [phone] Evaluation note* Diagnosis Onset Date Resolution Status Admit Date Biventricular ICD (implantable cardioverter-defibrillator) in place October 12, 2019 chronic June 18, 2025 1:15pm Chronic combined systolic and diastolic CHF (congestive heart failure) chronic 2024 1:15pm Longstanding persistent atrial fibrillation chronic June 18, 2025 1:15pm Nonischemic cardiomyopathy chronic June 18, 2025 1:15pm Atrial fibrillation acute 2024 1:17pm Cirrhosis acute June 18, 2 025 1:17pm Biventricular ICD (implantable cardioverter-defibrillator) in place October 12, 2019 chronic June 18, 2025 1:17pm Chronic combined systolic and diastolic CHF (congestive heart failure) chronic 2024 1:17pm Essential (primary) hypertension chronic June 18 1:17pm Nonischemic cardiomyopathy chronic June 18, 2025 1:17pm [employer] Work Phone: [phone] 110-488512-06-2019 Evaluation note* Diagnosis Onset Date Resolution Status Admit Date Biventricular ICD (implantable cardioverter-defibrillator ) in place October 12, 2019 chronic June 18, 2025 1:15pm Chronic combined systolic and [...] July 16 025 2:55pm Parkinson's disease inactive [facility] 2024 2:55pm [facility] Work Phone: [phone]) 820-549512-06-2019 Evaluation note* Diagnosis Onset Date Resolution Status Admit Date Biventricular ICD (implantable cardioverter-defibrillator ) in place October 12, 2019June 18, 2025 1:15pm Chronic combined systolic and diastolic CHF (congestive heart failure) chronic 2024 1:15pm Longstanding persistent atrial fibrillation June 18, 2025 1:15pm Nonischemic cardiomyopathy June 18, 2025 1:15pm Atrial fibrillation acute [...] of gait and mobility chronic July 16 2 025 2:55pm Parkinson's disease chronic Septe mber 2024 2:55pm [facility] Work Phone: 1([phone]) 319-328104-20-2017 History of Past illness Narrative* Problem Noted [...] of this encounter (statuses as of 02/02/2022) [facility] Narr[facility]* Problem [...] of this encounter (statuses as of 02/03/2022) [facility] N[facility]ative* Problem [...] of this encounter (statuses as of 02/05/2022) [facility]ative* Problem [...] of this encounter (statuses as of 02/09/2022) [facility]ative* Problem [...] of this encounter (statuses as of 02/15/2022) [facility]ative* Problem [...] of this encounter (statuses as of 02/24/2022) [facility]ative* Problem [...] of this encounter (statuses as of 02/26/2022) [facility]* Problem [...] of this encounter (statuses as of 03/05/2022) [facility]* Problem [...] of this encounter (statuses as of 03/16/2022) [facility]* Problem [...] of this encounter (statuses as of 03/26/2022) [facility]* Problem [...] of this encounter (statuses as of 04/01/2022) [facility]* Problem [...] of this encounter (statuses as of 04/06/2022) [facility]* Problem [...] of this encounter (statuses as of 04/08/2022) [facility]* Problem [...] of this encounter (statuses as of 04/16/2022) [facility]* Problem [...] of this encounter (statuses as of 04/23/2022) [facility]* Problem [...] of this encounter (statuses as of 05/04/2022) [facility]* Problem [...] of this encounter (statuses as of 05/13/2022) [facility]* Problem [...] of this encounter (statuses as of 05/19/2022) [facility]* Problem [...] of this encounter (statuses as of 05/20/2022) [facility]* Problem [...] of this encounter (statuses as of 2022) [facility]* Problem [...] of this encounter (statuses as of 06/15/2022) [facility]* Problem [...] of this encounter (statuses as of 06/24/2022) [facility]* Problem [...] of this encounter (statuses as of 07/22/2022) [facility]* Problem [...] of this encounter (statuses as of 07/29/2022) [facility]* Problem [...] of this encounter (statuses as of 08/13/2022) [facility]* Problem [...] of this encounter (statuses as of 09/02/2022) [facility]* Problem [...] of this encounter (statuses as of 09/03/2022) [facility]* Problem [...] of this encounter (statuses as of 09/06/2022) [facility]* Problem [...] of this encounter (statuses as of 09/15/2022) [facility]* Problem [...] of this encounter (statuses as of 09/17/2022) [facility]* Problem [...] of this encounter (statuses as of 09/17/2022) [facility] Author Norris Orellana [facility] June 26, 2023 9:31am Note Date/Time June 26, 2023 9: 23am [facility] Medical Records Department [address] [place] [address] Transfer to [facility] MR#: [id number] Acct: [id number] Name: STEPH BAUMANN Rep #:[id number] : [id number] 73 From: Norris Chávez PCP: Dr. Manuel Beebe MD Status:AD M IN Certification of patient admission REQUIRED AT TIME OF ADMISSION. I CERTIFY THAT POST-HOSPITAL ECF SERVICES ARE REQUIRED TO BE GIVEN ON AN IN-PATIENT BASIS BECAUSE OF THE ABOVE NAMED PATIENT'S NEED FOR PRISON CARE ON A CONTINUING BASIS FOR THE CONDITION(S) FOR WHICH HE/SHE WAS RECEIVING IN-PATIENT HOSPITAL SERVICES PRIOR TO HIS/HER TRANSFER TO THE [facility]. 06/26/23 0931<Electronically signed by Norris Orellana MD> [...] controlled bisacodyl 10 mg suppository 10 mg IN DAILY PRN (Reason: constipation) Rx Instructions: insert [...] in before D/C Order can be placed): Shelter Facility 06/26/23 0931 <Electronically signed by Norris Orellana MD> Cosigner Signature (if applicable): CC: Dr. Quynh Araya DO; Dr. Manuel Beebe MD; Dr. Maximo Addison MD; Dr. Chandana Jain MD ~ [facility] Work Phone: Discharge summary Author Norris Orellana [facility] June 26, 2023 9:39am Note Date/Time June 26, 2023 9: 39am [facility] Medical Records Department [address] [place] [address] Discharge Summary 06/26/23 0931 MR#: [id number] Acct: [id number] Name: STEPH BAUMANN Rep #:[id number] : 1950 73 From: Norris Chávez PCP: Dr. Manuel Beebe MD Status:AD M IN Location: [place] [id number] Providers Date of Admission: 06/21/23 Date [...] bisacodyl 10 mg rectal suppository 10 mg IN DAILY PRN constipation 06/21/23 dulaglutide 1.5 mg/0.5 [...] controlled bisacodyl 10 mg suppository 10 mg IN DAILY PRN (Reason: constipation) Rx Instructions: insert [...] in before D/C Order can be placed): Shelter Facility Charges/Coding Visit Charges Inpatient E&M: 12413 Disch Hosp >30min 06/26/23 0939 <Electronically signed by Norris Orellana MD> Cosigner Signature (if applicable): CC: Dr. Manuel Beebe MD; Dr. Norris Orellana MD~ Signed [facility] Work Phone: Evaluation note* Diagnosis Controlled type 2 diabetes mellitus without complication, with long-term current use of insulin (HCC) [facility] [place] [facility]* Diagnosis Controlled type 2 diabetes mellitus without complication, with long-term current use of insulin (HCC)- Primary [facility] [place] [facility]* Diagnosis Controlled type 2 diabetes mellitus without complication, with long-term current use of insulin (HCC)- Primary Medication management Encounter for long-term (current) use of other medications documented in this encounter [facility] note* Diagnosis Hip fracture requiring operative repair, right, closed, initial encounter ([facility])- Primary Status post hip hemiarthroplasty documented in this encounter [facility] note* Diagnosis Pain- Primary Generalized pain documented in this encounter [facility] note* Diagnosis Pain- Primary Generalized pain documented in this encounter [facility] note* Diagnosis Hip fracture requiring operative repair, right, closed, initial encounter ([facility])- Primary Low back pain without sciatica, unspecified back pain laterality, unspecified chronicity documented in this encounter [facility] note* Diagnosis Low back pain without sciatica, unspecified back pain laterality, unspecified chronicity- Primary documented in this encounter [facility] note* Diagnosis Controlled type 2 diabetes mellitus without complication, with long-term current use of insulin ([facility])- Primary documented in this encounter [facility] note* Diagnosis Brain tumor (HCC)- Primary Neoplasm of unspecified nature of brain Moderate persistent asthma without complication Unspecified asthma Chronic diastolic CHF (congestive heart failure) (HCC) Chronic diastolic heart failure documented in this encounter [facility] note* Diagnosis Hip fracture requiring operative repair, right, closed, initial encounter ([facility])- Primary Low back pain without sciatica, unspecified back pain laterality, unspecified chronicity documented in this encounter [facility] note* Diagnosis Controlled type 2 diabetes mellitus without complication, with long-term current use of insulin (HCC) Essential hypertension, benign documented in this encounter [facility] note* Diagnosis Onset Date Resolution Status [id number] acute Atrial fibrillation acute Benign prostate hyperplasia acute Cirrhosis of liver acute Debility acute Diabetes mellitus acute Gastroesophageal reflux disease acute FARIAS (nonalcoholic steatohepatitis) acute Prostate cancer acute Seizure disorder acute Stroke acute Chronic kidney disease, stage 3a chronic Asthma resolved Chronic systolic congestive heart failure resolved Closed right hip fracture re solved Prostate cancer acute [id number] acute [id number] acute [id number] acute Chest pain resolved 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 October 12, 2019 chr onic Chronic combined systolic an d diastolic CHF (congestive heart failure) chronic Longstanding persistent atrial fibrillation chronic Nonischemic cardiomyopathy c hronic 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 Abnormality of gait and mobility acute History of CVA (cerebrovascular accident) chronic Polyneuropathy chronic [facility] Work Phone: Evaluation note* Diagnosis Hip fracture requiring operative repair, right, closed, initial encounter ([facility])- Primary Status post hip hemiarthroplasty [facility] Diagnosis Onset Date Resolution Status Atrial fibrillation acute Benign prostate hyperplasia acute Cirrhosis of liver acute Debility acute Diabetes mellitus acute Gastroesophageal reflux disease acute FARIAS (nonalcoholic steatohepatitis) acute Prostate cancer acute Seizure disorder acute Stroke acute Chronic kidney disease, stage 3a chronic Asthma resolved Chronic systolic congestive heart failure resolved Closed right hip fracture re solved Prostate cancer acute [id number] acute [id number] acute [id number] acute Chest pain resolved 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 October 12, 2019 chr onic Chronic combined systolic an d diastolic CHF (congestive heart failure) chronic Longstanding persistent atrial fibrillation chronic Nonischemic cardiomyopathy c hronic 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 Abnormality of gait and mobility acute History of CVA (cerebrovascular accident) chronic Polyneuropathy chronic [facility] Work Phone: Evaluation note* Diagnosis Status post hip hemiarthroplasty- Primary [facility] [place] [facility]* Diagnosis Status post hip hemiarthroplasty- Primary [facility] Diagnosis Onset Date Resolution Status Atrial fibrillation acute Benign prostate hyperplasia acute Cirrhosis of liver acute Debility acute Diabetes mellitus acute Gastroesophageal reflux disease acute FARIAS (nonalcoholic steatohepatitis) acute Prostate cancer acute Seizure disorder acute Stroke acute Chronic kidney disease, stage 3a chronic Asthma resolved Chronic systolic congestive heart failure resolved Closed right hip fracture re solved [id number] acute Chest pain resolved 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 October 12, 2019 chr onic Chronic combined systolic an d diastolic CHF (congestive heart failure) chronic Longstanding persistent atrial fibrillation chronic Nonischemic cardiomyopathy c hronic 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 Abnormality of gait and mobility acute History of CVA (cerebrovascular accident) chronic Polyneuropathy chronic [id number] acute [facility] Work Phone: Evaluation note* Diagnosis Liver disease- Primary Unspecified disorder of liver [facility] [place] [facility]* Diagnosis Liver disease Unspecified disorder of liver documented [facility] [place] [facility]* Diagnosis Tobacco abuse Tobacco use disorder [facility] [place] [facility]* Diagnosis Onset Date Resolution Status [id number] acute Abnormality of gait and mobility chronic [...] le cardioverter-defibrillator) in place October 12, 2019 [facility] onic Chronic combined systolic an d diastolic CHF (congestive heart failure) chronic Longstanding persistent atrial fibrillation chronic Nonischemic cardiomyopathy c hronic 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 October 12, 2019 [facility] onic Chronic combined systolic an d diastolic CHF (congestive heart failure) chronic Longstanding persistent atrial fibrillation chronic Nonischemic cardiomyopathy c hronic 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 [facility] Work Phone: Evaluation note* Diagnosis Rash Rash and other nonspecific skin eruption documented [facility] [place] [facility]* Diagnosis Liver disease- Primary Unspecified disorder of liver Other cirrhosis of liver (HCC) [facility] Diagnosis Liver disease Unspecified disorder of liver documented [facility] [place] [facility]* Diagnosis Onset Date Resolution Status Parkinson's disease acute [id number] acute Abnormality of gait and mobility chronic Absent pedal pulses chronic History of CVA (cerebrovascular accident) chronic Polyneuropathy chronic [id number] acute Biventricular ICD (implantab le cardioverter-defibrillator) in [...] acute History of CVA (cerebrovascular accident) chronic [facility] Work Phone: Evaluation note* Diagnosis Hypotension due to drugs- Primary Other iatrogenic hypotension Nausea Nausea alone Adult failure to thrive Type 2 diabetes mellitus with other specified complication, with long-term current use of insulin (HCC) Paroxysmal atrial fibrillation (HCC) Atrial fibrillation Chronic diastolic CHF (congestive heart failure) (HCC) Chronic diastolic heart failure Parkinson's disease (HCC) Paralysis agitans [facility] [place] [facility]* Diagnosis Onset Date Resolution Status Parkinson's disease acute [id number] acute Abnormality of gait and mobility chronic Absent pedal pulses chronic History of CVA (cerebrovascular accident) chronic Polyneuropathy chronic [id number] acute Biventricular ICD (implantab le cardioverter-defibrillator) in [...] acut e VALENCIA (acute kidney injury) ac [place] Generalized weakness acute Transient hypotension acute [facility] Work Phone: Evaluation note* Diagnosis Controlled type 2 diabetes mellitus without complication, with long-term current use of insulin (HCC)- Primary Essential hypertension, benign 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 Moderate persistent asthma without complication Unspecified asthma Cirrhosis of liver with ascites, unspecified hepatic cirrhosis type (HCC) [facility] Diagnosis Onset Date Resolution Status [...] (primary) hypertension chronic Nonischemic cardiomyopathy c hronic [facility] Work Phone: Evaluation note* Diagnosis Onset [...] dehydration acute VALENCIA (acute kidney injury) ac [place] Elevated troponin acute Hyperbilirubinemia acute Leukocytosis acute Nausea & vomiting acute Right hip pain acute Toxic metabolic encephalopathy acute [facility] Work Phone: Evaluation note* Diagnosis Onset [...] injury) re solved Toxic metabolic encephalopathy resolved [id number] acute [facility] Work Phone: Evaluation note* Diagnosis Onset [...] injury) re solved Toxic metabolic encephalopathy resolved [id number] acute [facility] Work Phone: Evaluation note* Diagnosis Chronic diastolic CHF (congestive heart failure) (HCC)- Primary Chronic diastolic heart failure [facility] [place] [facility]* Diagnosis Onset Date Resolution Status Acute alteration in mental status acute Acute dehydration acute Elevated troponin acute Hyperbilirubinemia acute Leukocytosis acute Nausea & vomiting acute Right hip pain acute VALENCIA (acute kidney injury) re solved Toxic metabolic encephalopathy resolved [id number] acute Atrial fibrillation acute Cirrhosis acute 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 October 12, 2019 chr onic Chronic combined systolic an d diastolic CHF (congestive heart failure) chronic Essential (primary) hypertension chronic Nonischemic cardiomyopathy c hronic [facility] Work Phone: Evaluation note* Diagnosis Prostate cancer (HCC)- Primary Malignant neoplasm of prostate 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) Malignant neoplasm of prostate documented [facility] [place] [facility]* Diagnosis 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 Personal history of contact with and (suspected) exposure to potentially hazardous body fluids documented in this encounter [facility] note* Diagnosis Prostate cancer (HCC)- Primary Malignant neoplasm of prostate documented in this encounter [facility] note* Diagnosis Age-related osteoporosis without current pathological fracture- Primary Senile osteoporosis Prostate cancer (HCC) Malignant neoplasm of prostate [facility] Liver disease- Primary Unspecified disorder of liver Cirrhosis of liver with ascites, unspecified hepatic cirrhosis type (HCC) (HCC) [facility] Diagnosis Liver disease Unspecified disorder of liver Other cirrhosis of liver (HCC) [facility]* Diagnosis Prostate cancer (HCC)- Primary Malignant neoplasm of prostate [facility] [place] [facility]* Diagnosis Right hip pain Pain in joint, pelvic region and thigh Prostate cancer (HCC) Malignant neoplasm of prostate [facility] [place] [facility]* Diagnosis Prostate cancer (HCC)- Primary Malignant neoplasm of prostate Right hip pain Pain in joint, pelvic region and thigh [facility] [place] [facility]* Diagnosis 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- Primary History of right hip replacement [facility] [place] [facility]* Diagnosis Age-related osteoporosis without current pathological fracture- Primary Senile osteoporosis Prostate cancer (HCC) Malignant neoplasm of prostate [facility] [place] [facility]* Diagnosis Hypercalcemia- Primary Age-related osteoporosis without current pathological fracture Senile osteoporosis [facility] [place] [facility]* Diagnosis Age-related osteoporosis without current pathological fracture- Primary Senile osteoporosis [facility] [place] [facility]* Diagnosis Prostate cancer (HCC)- Primary Malignant neoplasm of prostate [facility] Diagnosis Chronic right hip pain- Primary Pain in joint, pelvic region and thigh S/P hip hemiarthroplasty Hip joint replacement by other means [facility] [place] [facility]* Diagnosis Prostate cancer (HCC)- Primary Malignant neoplasm of prostate [facility] Diagnosis Liver disease Unspecified disorder of liver [facility] [place] [facility]* Diagnosis Alcoholic liver disease (HCC)- Primary Alcoholic liver damage, unspecified [facility] [place] [facility]* Diagnosis Liver disease- Primary Unspecified disorder of liver [facility] Liver disease Unspecified disorder of liver [facility] Diagnosis Prostate cancer (HCC)- Primary Malignant neoplasm of prostate 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) Malignant neoplasm of prostate [facility] [place] [facility]* Diagnosis Prostate cancer (HCC)- Primary Malignant neoplasm of prostate documented [facility] [place] [facility]* Diagnosis Liver disease- Primary Unspecified disorder of liver Alcoholic liver disease (HCC) Alcoholic liver damage, unspecified Cirrhosis of liver with ascites, unspecified hepatic cirrhosis type (HCC) (HCC) documented in this encounter [facility] note* Diagnosis Liver disease- Primary Unspecified disorder of liver documented [facility] [place] [facility]* Diagnosis Liver disease Unspecified disorder of liver documented in this encounter [facility] note* Diagnosis Prostate cancer (HCC)- Primary Malignant neoplasm of prostate 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) Malignant neoplasm of prostate documented in [facility] [place] [facility]* Diagnosis Prostate cancer (HCC)- Primary Malignant neoplasm of prostate documented [facility] [place] [facility]* Diagnosis Right inguinal hernia- Primary Inguinal hernia without mention of obstruction or gangrene, unilateral or unspecified, (not specified as recurrent) documented in this encounter [facility] note* Diagnosis Preoperative examination- Primary Preoperative examination, unspecified Non-recurrent unilateral inguinal hernia without obstruction or gangrene Abnormal results of liver function studies Nonspecific abnormal results of liver function study Abnormal coagulation profile documented in this encounter [facility] note* Diagnosis Prostate cancer (HCC)- Primary Malignant neoplasm of prostate documented in this encounter [facility] note* Diagnosis Moderate recurrent major depression (HCC)- [...] obstruction or gangrene [facility] [place] [facility]* Diagnosis Primary pulmonary hypertension (HCC)- Primary Primary pulmonary hypertension Preoperative examination Preoperative examination, unspecified Non-recurrent unilateral inguinal hernia without obstruction or gangrene [facility] [place] [facility]* Diagnosis Liver disease Unspecified disorder of liver Preoperative examination Preoperative examination, unspecified Non-recurrent unilateral inguinal hernia without obstruction or gangrene [facility] [place] [facility]* Diagnosis Liver disease- Primary Unspecified disorder of liver Preoperative examination Preoperative examination, unspecified Non-recurrent unilateral inguinal hernia without obstruction or gangrene [facility]. Jacobs [facility] April 10, 2023 5:01pm Note Date/Time April 10, 2023 4:24p [facility] Medical Records Department [address] [place] [address] H&P Exam - Hospitalist 04/10/23 1622 MR#: [id number] Acct: [id number] Name: STEPH BAUMANN Rep #:[id number] : 1950 72 From: Leonie Jacobs MD PCP: Dr. Manuel Beebe MD Status:[facility] Location: [address] HPI - General General Date of Admission: [...] sepsis caretakers were apparently out of town. [facility] Medical History Acute and chronic respiratory failure with hypoxia Acute heart failure with reduced ejection fraction and diastolic dysfunction Ambulates with cane Anticoagulant long-term use Ascites Asthma Atherosclerosis of coronary artery of [place] heart without angina pectoris Atrial fibrillation and [...] never substance use type: does not use regla/religious: None seatbelt use: always ROS ROS Narrative [...] 85.5 H, Lymph % (Auto) 5.4 L, [place] % (Auto) 6.7, Eos % (Auto) 1.4, [...] Clarity Clear, Urine pH 6.0, Ur Specific [place] 1.015, Urine Protein Negative, Urine Glucose (UA) [...] Requested for PT OT eval and social insurance specialist to assist with discharge planning 2. Nonischemic [...] 18 minutes. Charges/Coding Visit Charges Inpatient E&M: 51335 Init Hosp L3 Procedures Hospitalists Procedures: 57685 Advncd Care Plan 30 Min 04/10/23 1701 <Electronically signed by Leonie Jacobs MD> Cosigner Signature (if applicable): CC: Dr. Leonie Jacobs MD; Dr. Manuel Beebe MD~ Signed [facility] Work Phone: History and physical note Author Maximo Addison [facility] June 21, 2023 5:38pm Note Date/Time June 21, 2023 5: 24pm [facility] Medical Records Department [address] [place] [address] H&P Exam - Hospitalist 06/21/23 1715 MR#: [id number] Acct: [id number] Name: STEPH BAUMANN Rep #:[id number] : 1950 73 From: Maximo sung MD PCP: Dr. Manuel Beebe MD Status:RE G ER Location: ED HPI - General General Date of Admission: 06/21/23 HPI Narrative STEPH BAUMANN, is a 73 M who presents from the detention with altered mental status as well as [...] he has been doing well at the detention but it has transitioned into a long-term [...] the ER were unremarkable as was UA. [facility] Medical History Acute and chronic respiratory failure with hypoxia Acute heart failure with reduced ejection fraction and diastolic dysfunction Adult failure to thrive Ambulates with cane Anticoagulant long-term use Ascites Asthma Atherosclerosis of coronary artery of [place] heart without angina pectoris Atrial fibrillation and [...] mL) subcutaneous pen 37 unit subcut QHS [id number]/24/18 [History Last Taken 04/12/23] bicalutamide 50 mg [...] bisacodyl 10 mg rectal suppository 10 mg IN DAILY PRN constipation 06/21/23 [History Last Taken [...] never substance use type: does not use regla/religious: None seatbelt use: always ROS Review of [...] Clarity Clear, Urine pH 6.0, Ur Specific [place] 1.020, Urine Protein 30 H, Urine Glucose [...] full code. Charges/Coding Visit Charges Inpatient E&M: 01436 Init Hosp L2 Procedures Hospitalists Procedures: 54521 Advncd Care Plan 30 Min 06/21/23 8818 <Electronically signed by Maximo Addison MD> Cosigner Signature (if applicable): CC: Dr. Manuel Beebe MD; Dr. Maximo Addison MD~ Signed [facility] Work Phone: [facility] Work Phone: Hospital Discharge instructions Additional Instructions Please continue all of your normal medications as previously directed and return to the ER should you have any further concernsWSouthern [facility] Work Phone: Reason for referral (narrative)* Diagnostic Procedure Only (Routine) - Authorized Specialty Diagnoses / Procedures Referred By Contac t Referred To Contact US IMAGING Diagnoses Liver disease Procedures US ABD RT UPPER QUADRANT US ABDOMINAL REAL TIME W/IMAGE LIMITED Deborah Main A[address] [place] [address] Us Imaging Referral ID Status Reason Start Date Expiration Date Visits Requested Visits Authorized [id number] Authorized Auto-Generat ed Referral 10/02/2023 4 4 [facility] for referral (narrative)* Diagnostic Procedure Only (Routine) - Authorized Specialty Diagnoses / Procedures Referred By Contac t Referred To Contact US IMAGING Diagnoses Liver disease Procedures US ABD RT UPPER QUADRANT US ABDOMINAL REAL TIME W/IMAGE LIMITED Deborah Main A[address] [place] [address] Us Imaging Referral ID Status Reason Start Date Expiration Date Visits Requested Visits Authorized [id number] Authorized Auto-Generat ed Referral 10/02/2023 4 4 T [facility] for referral (narrative)* Diagnostic Procedure Only (Routine) - Authorized Specialty Diagnoses / Procedures Referred By Contac t Referred To Contact US IMAGING Diagnoses Liver disease Procedures US ABD RIGHT UPPER QUADRANT US ABDOMINAL REAL TIME W/IMAGE LIMITED Merlin Loredo MD [address] [place] [address] Us Imaging Referral ID Status Reason Start Date Expiration Date Visits Requested Visits Authorized [id number] Authorized Auto-Generat ed Referral 09/12/2023 04/07/2024 1 1 T [facility] for referral (narrative)* Diagnostic Procedure Only (Routine) - Authorized Specialty Diagnoses / Procedures Referred By Contac t Referred To Contact US IMAGING Diagnoses Liver disease Procedures US ABD RT UPPER QUADRANT US ABDOMINAL REAL TIME W/IMAGE LIMITED Deborah Main A[address] [place] [address] Us Imaging Referral ID Status Reason Start Date Expiration Date Visits Requested Visits Authorized [id number] Authorized Auto-Generat ed Referral 2 10/02/2023 4 4 [facility] for referral (narrative)* Outpatient Procedure (Routine) - Pending Review Specialty Diagnoses / Procedures Referred By Contac t Referred To Contact [facility] Diagnoses Liver disease Procedures DDI VIBRATION CONTROLLED TRANSIENT ELASTOGRAPHY (VCTE) LIVER ELASTOGRAPHY W/O IMAG W/I&[place] [address] [place], [place] [address] [address] [place] [address] Referral ID Status Reason Start Date Expiration Date Visits Requested Visits Authorized [id number] Pending Review Auto-Generat ed Referral 08/14/2024 03/14/2025 1 1 * Diagnostic Procedure Only (Routine) - Pending Review Specialty Diagnoses / Procedures Referred By Contac t Referred To Contact US IMAGING Diagnoses Liver disease Procedures US ABD RIGHT UPPER QUADRANT US ABDOMINAL REAL TIME W/[place] [address] [place] [address] Us Imaging [place] [address] Referral ID Status Reason Start Date Expiration Date Visits Requested Visits Authorized [id number] Pending Review Auto-Generat ed Referral 08/14/2024 04/13/2025 1 1 * Outpatient Procedure (Routine) - Pending Review Specialty Diagnoses / Procedures Referred By Contac t Referred To Contact [facility] Diagnoses Liver disease Procedures EGD - THERAPEUTIC, EUS, OR TUBE INTERVENTIONS EGD BAND LIGATION ESOPHGEAL/[place] [address] [place] [address] [address] Referral ID Status Reason Start Date Expiration Date Visits Requested Visits Authorized [id number] Pending Review Auto-Generat ed Referral 08/14/2024 03/14/2025 1 1 [facility] for referral (narrative)* Diagnostic Procedure Only (Routine) - Closed Specialty Diagnoses / Procedures Referred By Contac t Referred To Contact US IMAGING Diagnoses Liver disease Other cirrhosis of liver (HCC) Procedures US ABD RIGHT UPPER QUADRANT US ABDOMINAL REAL TIME W/IMAGE LIMITED Merlin Loredo MD [address] [place] [id number] Us Imaging [place] [address] Referral ID Status Reason Start Date Expiration Date V isits Requested Visits Authorized [id number] Closed Auto-Generate d Referral 09/16/2023 10/12/2024 1 1 [facility] for referral (narrative)* Diagnostic Procedure Only (Routine) - Closed Specialty Diagnoses / Procedures Referred By Contac t Referred To Contact XR IMAGING Diagnoses Right hip pain Prostate cancer (HCC) Procedures XR HIP GENERAL 3V PELV/AP/LAT RIGHT RADEX HIP UNILATERAL WITH PELVIS 2-3 VIEWS Jonnathan Kothari DO [address] [place] [address] Xr Imaging [facility] Referral ID Status Reason Start Date Expiration Date V isits Requested Visits Authorized [id number] Closed Auto-Generate d Referral 03/21/2024 04/20/2025 1 1 [facility] for referral (narrative)* Outpatient Procedure (Routine) - Closed Specialty Diagnoses / Procedures Referred By Contac t Referred To Contact [facility] Diagnoses Liver disease Procedures EGD - THERAPEUTIC, EUS, OR TUBE INTERVENTIONS EGD BAND LIGATION ESOPHGEAL/GASTRIC VARICES Merlin Loredo MD [address] [place] [address] [facility] [address] [place] [address] Referral ID Status Reason Start Date Expiration Date V isits Requested Visits Authorized [id number] Closed Auto-Generate d Referral 08/14/2024 03/14/2025 1 1 [facility] for referral (narrative)* Outpatient Procedure (Routine) - New Request Specialty Diagnoses / Procedures Referred By Contac t Referred To Contact [facility] Diagnoses Alcoholic liver disease (HCC) Procedures DDI VIBRATION CONTROLLED TRANSIENT ELASTOGRAPHY (VCTE) LIVER ELASTOGRAPHY W/O IMAG W/I&R Parisa Miller APRN.CNP [address] [place] [address] [facility] [address] [place] [address] Referral ID Status Reason Start Date Expiration Date Visits Requested Visits Authorized [id number] New Request Auto-Generat ed Referral 08/28/2025 1 1 [facility] for referral (narrative)* Diagnostic Procedure Only (Routine) - Authorized Specialty Diagnoses / Procedures Referred By Contac t Referred To Contact US IMAGING Diagnoses Liver disease Procedures US ABD RIGHT UPPER QUADRANT US ABDOMINAL REAL TIME W/IMAGE LIMITED Merlin Loredo MD [address] [place] [address] [place] [facility] Referral ID Status Reason Start Date Expiration Date Visits Requested Visits Authorized [id number] Authorized Auto-Generat ed Referral 09/27/2025 1 1 T [facility] for referral (narrative)* Diagnostic Procedure Only (Routine) - Closed Specialty Diagnoses / Procedures Referred By Contac t Referred To Contact US IMAGING Diagnoses Liver disease Procedures US ABD RIGHT UPPER QUADRANT US ABDOMINAL REAL TIME W/IMAGE LIMITED Merlin Loredo MD [address] [place] [address] [place] [address] Referral ID Status Reason Start Date Expiration Date V isits Requested Visits Authorized [id number] Closed Auto-Generate d Referral 08/14/2024 04/13/2025 1 1 [facility] for referral (narrative)No reason for referral information [facility] Work Phone: Reason for visit Narrative* Diagnostic Procedure Only (Routine) - Authorized Specialty Diagnoses / Procedures Referred By Contac t Referred To Contact US IMAGING Diagnoses Liver disease Procedures US ABD RT UPPER QUADRANT US ABDOMINAL REAL TIME W/IMAGE LIMITED Deborah Main A5 [address] [place] [address] Us Imaging Referral ID Status Reason Start Date Expiration Date Visits Requested Visits Authorized [id number] Authorized Auto-Generat ed Referral 10/02/2023 4 4 [facility] for visit Narrative* Diagnostic Procedure Only (Routine) - Closed Specialty Diagnoses / Procedures Referred By Contac t Referred To Contact US IMAGING Diagnoses Liver disease Other cirrhosis of liver (HCC) Procedures US ABD RIGHT UPPER QUADRANT US ABDOMINAL REAL TIME W/IMAGE LIMITED Merlin Loredo MD [address] [place] [address] [place] Imaging [place] [facility] Referral ID Status Reason Start Date Expiration Date V isits Requested Visits Authorized [id number] Closed Auto-Generate d Referral 09/16/2023 10/12/2024 1 1 [facility] for visit Narrative* Diagnostic Procedure Only (Routine) - Closed Specialty Diagnoses / Procedures Referred By Contac t Referred To Contact XR IMAGING Diagnoses Right hip pain Prostate cancer (HCC) Procedures XR HIP GENERAL 3V PELV/AP/LAT RIGHT RADEX HIP UNILATERAL WITH PELVIS 2-3 VIEWS Jonnathan Kothari, DO [address] [place] [address] [place] [address] Referral ID Status Reason Start Date Expiration Date V isits Requested Visits Authorized [id number] Closed Auto-Generate d Referral 03/21/2024 04/20/2025 1 1 [facility] for visit Narrative* Outpatient Procedure (Routine) - Closed Specialty Diagnoses / Procedures Referred By Contac t Referred To Contact [facility] Diagnoses Liver disease Procedures EGD - THERAPEUTIC, EUS, OR TUBE INTERVENTIONS EGD BAND LIGATION ESOPHGEAL/GASTRIC VARICES Merlin Loredo MD [address] [place] [address] [address] [address] Referral ID Status Reason Start Date Expiration Date V isits Requested Visits Authorized [id number] Closed Auto-Generate d Referral 08/14/2024 03/14/2025 1 1 [facility] for visit Narrative* Outpatient Procedure (Routine) - Closed Specialty Diagnoses / Procedures Referred By Contac t Referred To Contact [facility] Diagnoses Liver disease Procedures DDI VIBRATION CONTROLLED TRANSIENT ELASTOGRAPHY (VCTE) LIVER ELASTOGRAPHY W/O IMAG W/I&R eMrlin Loredo MD [address] [place], [place] [id number] [address] [address] Referral ID Status Reason Start Date Expiration Date V isits Requested Visits Authorized [id number] Closed Auto-Generate d Referral 08/14/2024 03/14/2025 1 1 [facility] for visit Narrative* Diagnostic Procedure Only (Routine) - Closed Specialty Diagnoses / Procedures Referred By Contac t Referred To Contact US IMAGING Diagnoses Liver disease Procedures US ABD RIGHT UPPER QUADRANT US ABDOMINAL REAL TIME W/IMAGE LIMITED Merlin Loredo MD [address] [place] [address] Us Imaging [place] [address] Referral ID Status Reason Start Date Expiration Date V isits Requested Visits Authorized [id number] Closed Auto-Generate d Referral 08/14/2024 04/13/2025 1 1 [facility] for visit Narrative* Diagnostic Procedure Only (Routine) - Closed Specialty Diagnoses / Procedures Referred By Contac t Referred To Contact US IMAGING Diagnoses Liver disease Procedures US ABD RIGHT UPPER QUADRANT US ABDOMINAL REAL TIME W/IMAGE LIMITED Merlin Loredo MD [address] [place], [place] [address] [address] Phone: tel: fax: US IMAGING [facility] Referral ID Status Reason Start Date Expiration Date V isits Requested Visits Authorized [id number] Closed Auto-Generate d Referral 08/28/2024 09/27/2025 1 1 [facility] for visit Narrative* [place] Prior Authorization (Routine) - Closed Specialty Diagnoses / Procedures Referred By Suyapa t Referred To Contact Diagnoses Prostate cancer (HCC) Procedures LEUPROLIDE ACETATE SUSPNSION Jonnathan Kothari DO [address] [place] [address] Phone: tel: fax: Hematology/Oncology [address] [place] [address] Phone: tel: fax: Referral ID Status Reason Start Date Expiration Date Visits Re quested Visits Authorized [id number] Closed 09/28/2023 11/06/2024 99 99 [facility] for visit Narrative* Consult, Test, Treat (Routine) - Closed Specialty Diagnoses / Procedures Referred By Suyapa t Referred To Contact Diagnoses Preoperative examination Non-recurrent unilateral inguinal hernia without obstruction or gangrene Procedures OFFICE/OUTPATIENT [facility] 60 MINUTES Hung Ridley, [employer] [address] [place], [place] [address] Phone: tel: fax: Referral ID Status Reason Start Date Expiration Date V isits Requested Visits Authorized [id number] Closed PCP Requested Referral 05/17/2025 05/17/2026 1 1 [facility] for visit Narrative* Diagnostic Procedure Only (Routine) - Closed Specialty Diagnoses / Procedures Referred By Suyapa t Referred To Contact US IMAGING Diagnoses Liver disease Procedures US ABD RIGHT UPPER QUADRANT US ABDOMINAL REAL TIME W/IMAGE LIMITED Merlin Loredo MD [address] [place] [address] Phone: tel: fax: US IMAGING [facility] Referral ID Status Reason Start Date Expiration Date V isits Requested Visits Authorized [id number] Closed Auto-Generate d Referral 07/16/2025 03/15/2026 1 1 [facility] Chief Complaint and Reason for Visit Chief Complaint C[address] Hernia [facility] 11/23 CONSULT PROSTATE CANCER Remote ALERT for [place] space oars, gold markers EVAL DISEASE, HIGH RISK PROSTATE Program out of MRI mode Programming for MRI 9 m fu HOME HEALTH SPEECH THERAPIST-D f/u @ 9AM annual in-clinic f/u Sees EMBEDDED ENGINEER@ 9:15 OTV OTV LEUNG FALL/RT HIP PAIN Reason for Visit Cirrhosis [id number] 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 [id number] Chief Complaint Remote ALERT for [place] space oars, gold markers EVAL DISEASE, HIGH RISK PROSTATE Program out of MRI mode Programming for MRI 9 m fu HOME HEALTH SPEECH THERAPIST-D f/u @ 9AM annual in-clinic f/u Sees EMBEDDED ENGINEER@ 9:15 OTV OTV FALL/RT HIP PAIN RT [...] 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 [id number] Asthma Atrial fibrillation Benign prostate hyperplasia Cirrhosis of liver Closed right hip fracture Debility Diabetes mellitus Gastroesophageal reflux disease FARIAS (nonalcoholic steatohepatitis) Prostate cancer Seizure disorder Stroke Chronic kidney disease, stage 3a Chronic systolic congestive heart failure Prostate cancer [id number] Chief Complaint Remote ALERT for [place] space oars, gold markers EVAL DISEASE, HIGH RISK PROSTATE Program out of MRI mode Programming for MRI 9 m fu HOME HEALTH SPEECH THERAPIST-D f/u @ 9AM annual in-clinic f/u Sees EMBEDDED ENGINEER@ 9:15 OTV OTV FALL/RT HIP PAIN RT [...] 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 [id number] Asthma Atrial fibrillation Benign prostate hyperplasia Cirrhosis of liver Closed right hip fracture Debility Diabetes mellitus Gastroesophageal reflux disease FARIAS (nonalcoholic steatohepatitis) Prostate cancer Seizure disorder Stroke Chronic kidney disease, stage 3a Chronic systolic congestive heart failure Prostate cancer [id number] Chief Complaint space oars, royer palacios EVAL DISEASE, HIGH RISK PROSTATE Program out of MRI mode Programming for MRI 9 m fu HOME HEALTH SPEECH THERAPIST-D f/u @ 9AM annual in-clinic f/u Sees EMBEDDED ENGINEER@ 9:15 OTV OTV FALL/RT HIP PAIN RT [...] 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 [id number] Atrial fibrillation Benign prostate hyperplasia Cirrhosis of liver Debility Diabetes mellitus Gastroesophageal reflux disease FARIAS (nonalcoholic steatohepatitis) Prostate cancer Seizure disorder Stroke Chronic kidney disease, stage 3a Asthma Chronic systolic congestive heart failure Closed right hip fracture Prostate cancer [id number] Acute heart failure with reduced ejection fraction and diastolic dysfunction Chest pain Acute and chronic respiratory failure with hypoxia Chief Complaint space oars, royer palacios EVAL DISEASE, HIGH RISK PROSTATE Program out of MRI mode Programming for MRI 9 m fu HOME HEALTH SPEECH THERAPIST-D f/u @ 9AM annual in-clinic f/u Sees EMBEDDED ENGINEER@ 9:15 OTV OTV FALL/RT HIP PAIN RT MANN ARTHOPLASTI OTV OTV otv otv 2 UNITS PRBC LEUNG LEUNG CHEST PAIN, HYPOXIA CHEST PAIN, HYPOXIA CHEST PAIN, HYPOXIA CHEST PAIN, HYPOXIA 3 mos remote HOME HEALTH SPEECH THERAPIST-D f/u SOB Reason for Visit Biventricular 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 [id number] Atrial fibrillation Benign prostate hyperplasia Cirrhosis of liver Debility Diabetes mellitus Gastroesophageal reflux disease FARIAS (nonalcoholic steatohepatitis) Prostate cancer Seizure disorder Stroke Chronic kidney disease, stage 3a Asthma Chronic systolic congestive heart failure Closed right hip fracture Prostate cancer [id number] Acute heart failure with reduced ejection fraction [...] HYPOXIA CHEST PAIN, HYPOXIA 3 mos remote HOME HEALTH SPEECH THERAPIST-D f/u SOB DROP FOOT/ CANCER CARE REFERRAL EORDER Reason for Visit [id number] Atrial fibrillation Benign prostate hyperplasia Cirrhosis of liver Debility Diabetes mellitus Gastroesophageal reflux disease FARIAS (nonalcoholic steatohepatitis) Prostate cancer Seizure disorder Stroke Chronic kidney disease, stage 3a Asthma Chronic systolic congestive heart failure Closed right hip fracture Prostate cancer [id number] Chest pain Biventricular ICD (implantable cardioverter-defibrillator) in [...] HYPOXIA CHEST PAIN, HYPOXIA 3 mos remote HOME HEALTH SPEECH THERAPIST-D f/u SOB DROP FOOT/ CANCER CARE REFERRAL EORDER altered loc Reason for Visit Atrial fibrillation Benign prostate hyperplasia Cirrhosis of liver Debility Diabetes mellitus Gastroesophageal reflux disease FARIAS (nonalcoholic steatohepatitis) Prostate cancer Seizure disorder Stroke Chronic kidney disease, stage 3a Asthma Chronic systolic congestive heart failure Closed right hip fracture Prostate cancer [id number] Chest pain Biventricular ICD (implantable cardioverter-defibrillator) in [...] HYPOXIA CHEST PAIN, HYPOXIA 3 mos remote HOME HEALTH SPEECH THERAPIST-D f/u SOB DROP FOOT/ CANCER CARE REFERRAL EORDER altered loc LEFT LEG WEAKNESS/CEREBROVASCULAR DISEASE 3 month f/u Reason for Visit Atrial fibrillation Benign prostate hyperplasia Cirrhosis of liver Debility Diabetes mellitus Gastroesophageal reflux disease FARIAS (nonalcoholic steatohepatitis) Prostate cancer Seizure disorder Stroke Chronic kidney disease, stage 3a Asthma Chronic systolic congestive heart failure Closed right hip fracture [id number] Chest pain Biventricular ICD (implantable cardioverter-defibrillator) in place Chronic combined systolic and diastolic CHF (congestive heart failure) Longstanding persistent atrial fibrillation Nonischemic cardiomyopathy Right bundle branch 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 Abnormality of gait and mobility History of CVA (cerebrovascular accident) Polyneuropathy [id number] Chief Complaint CHEST PAIN,HYPOXIA CHEST PAIN, HYPOXIA CHEST PAIN, HYPOXIA CHEST PAIN, HYPOXIA 3 mos remote HOME HEALTH SPEECH THERAPIST-D f/u SOB DROP FOOT/ CANCER CARE REFERRAL [...] mobility History of CVA (cerebrovascular accident) Polyneuropathy [id number] Abnormality of gait and mobility Absent pedal pulses History of CVA (cerebrovascular accident) Polyneuropathy Chief Complaint LEFT LEG WEAKNESS/CE REBROVASCULAR DISEASE 3 month f/u 2 M FU EORDER BILAT LOWER EXT ABDNORMAL GAIT 6 m fu/ MARIBELL @ 11 device check/ MMM @ 11:30 psa Reason for Visit [id number] Abnormality of gait and mobility Absent pedal [...] MMM @ 11:30 psa 3 mos remote HOME HEALTH SPEECH THERAPIST-D f/u HX RIGHT MCA CVA Reason for [...] block Chief Complaint psa 3 mos remote HOME HEALTH SPEECH THERAPIST-D f/u HX RIGHT MCA CVA 4 M FU THYROID NODULE 6 month f/u prostate Reason for Visit Biventricular ICD (i mplantable cardioverter-defibrillator) in place Chronic combined systolic and diastolic CHF (congestive heart failure) Longstanding persistent atrial fibrillation Nonischemic cardiomyopathy Right bundle branch 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 Parkinson's disease [id number] Abnormality of gait and mobility Absent pedal pulses History of CVA (cerebrovascular accident) Polyneuropathy [id number] Chief Complaint 4 M FU THYROID NODULE 6 month f/u prostate Rmote ALERT for [place] PSA 3 mos HOME HEALTH SPEECH THERAPIST-D f/u ADULT FAILURE TO THRIVE ADULT FAILURE TO THRIVE Reason for Visit Parkinson's disease [id number] Abnormality of gait and mobility Absent pedal pulses History of CVA (cerebrovascular accident) Polyneuropathy [id number] Biventricular ICD (implantable cardioverter-defibrillator) in place Longstanding [...] Rmote ALERT for [place] PSA 3 mos HOME HEALTH SPEECH THERAPIST-D f/u ADULT FAILURE TO THRIVE ADULT FAILURE TO THRIVE ADULT FAILURE TO THRIVE ADULT FAILURE TO THRIVE Reason for Visit Parkinson's disease [id number] Abnormality of gait and mobility Absent pedal pulses History of CVA (cerebrovascular accident) Polyneuropathy [id number] Biventricular ICD (implantable cardioverter-defibrillator) in place Longstanding [...] Rmote ALERT for [place] PSA 3 mos HOME HEALTH SPEECH THERAPIST-D f/u ADULT FAILURE TO THRIVE ADULT FAILURE TO THRIVE ADULT FAILURE TO THRIVE ADULT FAILURE TO THRIVE VALENCIA Reason for Visit Parkinson's disease [id number] Abnormality of gait and mobility Absent pedal pulses History of CVA (cerebrovascular accident) Polyneuropathy [id number] Biventricular ICD (implantable cardioverter-defibrillator) in place Longstanding [...] Rmote ALERT for [place] PSA 3 mos HOME HEALTH SPEECH THERAPIST-D f/u ADULT FAILURE TO THRIVE ADULT FAILURE TO THRIVE ADULT FAILURE TO THRIVE ADULT FAILURE TO THRIVE VALENCIA VALENCIA VALENCIA VALENCIA VALENCIA SYPOXIA, VALENCIA Reason for Visit [id number] Biventricular ICD (implantable cardioverter-defibrillator) in place Longstanding [...] Rmote ALERT for [place] PSA 3 mos HOME HEALTH SPEECH THERAPIST-D f/u ADULT FAILURE TO THRIVE ADULT FAILURE TO THRIVE ADULT FAILURE TO THRIVE ADULT FAILURE TO THRIVE VALENCIA VALENCIA VALENCIA VALENCIA VALENCIA HYPOXIA, VALENCIA SYPOXIA, VALENCIA HYPOXIA, VALENCIA Reason for Visit [id number] Biventricular ICD (implantable cardioverter-defibrillator) in place Longstanding [...] Rmote ALERT for [place] PSA 3 mos HOME HEALTH SPEECH THERAPIST-D f/u ADULT FAILURE TO THRIVE ADULT FAILURE TO THRIVE ADULT FAILURE TO THRIVE ADULT FAILURE TO THRIVE VALENCIA VALENCIA VALENCIA VALENCIA VALENCIA PRISON [facility]WORK HYPOXIA, VALENCIA SYPOXIA, VALENCIA HYPOXIA, VALENCIA PRISON LABWORK malignant neoplasm of prostate Reason for [...] VALENCIA VALENCIA VALENCIA VALENCIA ADMISSION EXAM VALENCIA [facility] ADMISISON EXAM HYPOXIA, VALENCIA FOLLOW UP SYPOXIA, VALENCIA HYPOXIA, VALENCIA PRISON [facility] LAB WORK malignant neoplasm of prostate [...] VALENCIA VALENCIA VALENCIA VALENCIA ADMISSION EXAM VALENCIA PRISON [facility]WORK ADMISISON EXAM HYPOXIA, VALENCIA FOLLOW UP SYPOXIA, VALENCIA HYPOXIA, VALENCIA [facility] LAB WORK malignant neoplasm of prostate LAB WORK LAB WORK LABWORK LABWORK LABWORK 6 M PRISON LAB WORK VALENCIA altered mental status VALENCIA [...] VALENCIA VALENCIA VALENCIA VALENCIA ADMISSION EXAM VALENCIA PRISON LABWORK ADMISISON EXAM HYPOXIA, VALENCIA FOLLOW UP SYPOXIA, VALENCIA HYPOXIA, VALENCIA PRISON [facility]WORK LAB WORK malignant neoplasm of prostate LAB WORK LAB WORK LABWORK LABWORK LABWORK 6 M PRISON LAB WORK PRISON LABWORK VALENCIA altered mental status VALENCIA VALENCIA [...] VALENCIA VALENCIA VALENCIA VALENCIA ADMISSION EXAM VALENCIA PRISON [facility]WORK ADMISISON EXAM HYPOXIA, VALENCIA FOLLOW UP SYPOXIA, VALENCIA HYPOXIA, VALENCIA PR[facility] LAB WORK malignant neoplasm of prostate LAB WORK LAB WORK LABWORK LABWORK LABWORK 6 M PRISON LAB WORK PRISON LABWORK PRISON LABWORK VALENCIA altered mental status VALENCIA VALENCIA VALENCIA VALENCIA VALENCIA VALENCIA VALENCIA LABWORK 6 month f/u prostate PRISON LAB WORK Reason for Visit Adult failure [...] VALENCIA (acute kidney injury) Toxic metabolic encephalopathy [id number] Chief Complaint ADULT FAILURE TO THR FLETCHER ADULT FAILURE TO THRIVE ADULT FAILURE TO THRIVE ADULT FAILURE TO THRIVE VALENCIA VALENCIA VALENCIA VALENCIA ADMISSION EXAM VALENCIA PRISON LABWORK ADMISISON EXAM HYPOXIA, VALENCIA FOLLOW UP SYPOXIA, VALENCIA HYPOXIA, VALENCIA PRISON [facility] LAB WORK malignant neoplasm of prostate LAB WORK LAB WORK LABWORK LABWORK LABWORK 6 M FU PRISON LAB WORK PRISON LABWORK PRISON LABWORK VALENCIA altered mental status VALENCIA VALENCIA VALENCIA VALENCIA VALENCIA VALENCIA VALENCIA LABWORK PRISON LABWORK 6 month f/u prostate PRISON LAB WORK Reason for Visit Adult failure [...] VALENCIA (acute kidney injury) Toxic metabolic encephalopathy [id number] Chief Complaint ADULT FAILURE TO THR FLETCHER ADULT FAILURE TO THRIVE ADULT FAILURE TO THRIVE ADULT FAILURE TO THRIVE VALENCIA VALENCIA VALENCIA VALENCIA ADMISSION EXAM VALENCIA PRISON LABWORK ADMISISON EXAM HYPOXIA, VALENCIA FOLLOW UP SYPOXIA, VALENCIA HYPOXIA, VALENCIA PRISON LABWORK LAB WORK malignant neoplasm of prostate LAB WORK LAB WORK LABWORK LABWORK LABWORK 6 M FU PRISON LAB WORK PRISON LABWORK PRISON LABWORK VALENCIA altered mental status VALENCIA VALENCIA VALENCIA VALENCIA VALENCIA VALENCIA VALENCIA LABWORK PRISON LABWORK 6 month f/u prostate PRISON LAB WORK PRISON LAB WORK Reason for Visit Adult failure [...] VALENCIA (acute kidney injury) Toxic metabolic encephalopathy [id number] Chief Complaint HYPOXIA, VALENCIA FOLLOW UP SYPOXIA, VALENCIA HYPOXIA, VALENCIA PRISON LABWORK LAB WORK malignant neoplasm of prostate LAB WORK LAB WORK LABWORK LABWORK LABWORK 6 M FU PRISON LAB WORK PRISON LABWORK PRISON LABWORK VALENCIA altered mental status VALENCIA VALENCIA VALENCIA VALENCIA VALENCIA VALENCIA VALENCIA LABWORK PRISON LABWORK 6 month f/u prostate PRISON LAB WORK PRISON LABWORK PRISON LAB WORK PRISON LABWORK Reason for Visit Adult failure to [...] VALENCIA (acute kidney injury) Toxic metabolic encephalopathy [id number] Chief Complaint HYPOXIA, VALENCIA HYPOXIA, VALENCIA PRISON LABWORK LAB WORK malignant neoplasm of prostate LAB WORK LAB WORK LABWORK LABWORK LABWORK 6 M FU PRISON LAB WORK PRISON LABWORK PRISON LABWORK VALENCIA altered mental status VALENCIA VALENCIA VALENCIA VALENCIA VALENCIA VALENCIA VALENCIA LABWORK PRISON LABWORK 6 month f/u prostate PRISON LAB WORK PRISON LABWORK PRISON LAB WORK PRISON LABWORK PRISON LAB WORK Reason for Visit Adult failure [...] VALENCIA (acute kidney injury) Toxic metabolic encephalopathy [id number] Chief Complaint LAB WORK LAB WORK LABWORK LABWORK LABWORK 6 M FU PRISON LAB WORK PRISON LABWORK PRISON LABWORK VALENCIA altered mental status VALENCIA VALENCIA VALENCIA VALENCIA VALENCIA VALENCIA VALENCIA LABWORK PRISON LABWORK 6 month f/u prostate PRISON LAB WORK PRISON LABWORK PRISON LAB WORK PRISON LABWORK PRISON LAB WORK PRISON LABWORK Reason for Visit Atrial fibrillation Cirrhosis Biventricular ICD (implantable cardioverter-defibrillator) in place Chronic combined systolic and diastolic CHF (congestive heart failure) Essential (primary) hypertension Nonischemic cardiomyopathy Acute alteration in mental status Acute dehydration Elevated troponin Hyperbilirubinemia Leukocytosis Nausea & vomiting Right hip pain VALENCIA (acute kidney injury) Toxic metabolic encephalopathy [id number] Chief Complaint VALENCIA VALENCIA LABWORK PRISON LABWORK 6 month f/u prostate PRISON LAB WORK PRISON LABWORK PRISON LAB WORK Pacer Check Remote PRISON LABWORK PRISON LAB WORK PRISON LABWORK 1 Y FU 4 M FU LABWORK Reason for Visit Acute alteration in mental status Acute dehydration Elevated troponin Hyperbilirubinemia Leukocytosis Nausea & vomiting Right hip pain VALENCIA (acute kidney injury) Toxic metabolic encephalopathy [id number] Atrial fibrillation Cirrhosis Biventricular ICD (implantable cardioverter-defibrillator) in place Chronic combined systolic and diastolic CHF (congestive heart failure) Essential (primary) hypertension Nonischemic cardiomyopathy Chief Complaint 1 Y FU 4 M FU LABWORK PRISON LAB WORK Reason for Visit Atrial fibrillation Cirrhosis Biventricular ICD (implantable cardioverter-defibrillator) in place Chronic combined systolic and diastolic CHF (congestive heart failure) Essential (primary) hypertension Nonischemic cardiomyopathy Chief Complaint 1 Y FU 4 M FU LABWORK PRISON LAB WORK Pacer Check Remote LABWORK Reason for Visit Atrial fibrillation Cirrhosis Biventricular ICD (implantable cardioverter-defibrillator) in place Chronic combined systolic and diastolic CHF (congestive heart failure) Essential (primary) hypertension Nonischemic cardiomyopathy Chief Complaint 1 Y FU 4 M FU LABWORK PRISON LAB WORK Pacer Check Remote LABWORK LABWORK Reason for Visit Atrial fibrillation Cirrhosis Biventricular ICD (implantable cardioverter-defibrillator) in place Chronic combined systolic and diastolic CHF (congestive heart failure) Essential (primary) hypertension Nonischemic cardiomyopathy Chief Complaint 1 Y FU 4 M FU LABWORK PRISON LAB WORK Pacer Check Remote LABWORK LABWORK LABWORK Reason for Visit Atrial fibrillation Cirrhosis Biventricular ICD (implantable cardioverter-defibrillator) in place Chronic combined systolic and diastolic CHF (congestive heart failure) Essential (primary) hypertension Nonischemic cardiomyopathy Chief Complaint 1 Y FU 4 M FU LABWORK PRISON LAB WORK Pacer Check Remote LABWORK LABWORK LABWORK PRISON LAB WORK Reason for Visit Atrial fibrillation Cirrhosis Biventricular ICD (implantable cardioverter-defibrillator) in place Chronic combined systolic and diastolic CHF (congestive heart failure) Essential (primary) hypertension Nonischemic cardiomyopathy Chief Complaint Admit Date PRISON LAB WORK October 22 5:00am PRISON LAB WORK October 26 4:00am LABWORK November [...] December 12, 2024 11:10am Essential (primary) hypertension 2024 11:10am Nonischemic cardiomyopathy December 12, 2024 [...] FOLLOW UP January 24, 2025 8:2 1am PRISON LAB WORK February 15, 2025 6 :30am Pacer Check Remote March 13, 2025 5:01am Chief Complaint Admit Date Pacer Check Remote December 12, 2024 5 :01am 9 M FU December 12, 2024 1 1:10am LABWORK December 21, 2024 5:00am LABWORK January 18, 2025 5:0 0am FOLLOW UP January 24, 2025 8:2 1am PRISON LAB WORK February 15, 2025 6 :30am Pacer Check Remote March 13, 2025 5:01am LABWORK March 15, 2025 6:40am Chief Complaint Admit Date Pacer Check Remote December 12, 2024 5 :01am 9 M FU December 12, 2024 1 1:10am LABWORK December 21, 2024 5:00am LABWORK January 18, 2025 5:0 0am FOLLOW UP January 24, 2025 8:2 1am PRISON LAB WORK February 15, 2025 6 :30am PRISON LAB WORK March 11, 2025 5:00 am Pacer Check Remote March 13, 2025 5:01am LABWORK March 15, 2025 6:40am Chief Complaint Admit Date PRISON LAB WORK March 11, 2025 5:00 am Pacer Check Remote March 13, 2025 5:01am LABWORK March 15, 2025 6:40am LABWORK April 12, 2025 5:00a m PRISON LAB WORK April 24, 2025 5: 55am PRISON LAB WORK May 14, 2025 5:0 0am PRISON LAB WORK May 21, 2025 5: 00am PRISON LAB WORK May 30, 2025 5: 00am 6 M FU/ Seeing MMM at 2pm June 18 025 1:15pm 6 M FU/ Seeing Maribell [...] 18, 2025 1:17pm Chief Complaint Admit Date PRISON LAB WORK March 11, 2025 5:00 am Pacer Check Remote March 13, 2025 5:01am LABWORK March 15, 2025 6:40am LABWORK April 12, 2025 5:00a m PRISON LAB WORK April 24, 2025 5: 55am PRISON LAB WORK May 14, 2025 5:0 0am PRISON LAB WORK May 21, 2025 5: 00am Pacer Check Remote May 24, 2025 5:23 am PRISON LAB WORK May 30, 2025 5: 00am Pacer Check Remote June 14, 2025 1:1 2am Pacer Check Remote June 18, 2025 9: 00am 6 M FU/ Seeing MMM at 2pm June 18, 2 025 1:15pm 6 M FU/ Seeing Maribell at 1:30pm June 1:17pm Chief Complaint Admit Date LABWORK April 12, 2025 5:00a m PRISON LAB WORK April 24, 2025 5: 55am PRISON LAB WORK May 14, 2025 5:0 0am PRISON LAB WORK May 21, 2025 5: 00am Pacer Check Remote May 24, 2025 5:23 am PRISON LAB WORK May 30, 2025 5: 00am PRISON LAB WORK June 11, 2025 4 :00am [...] 2025 2:55pm [facility] 2:55pm Parkinson's disease July 16, 2025 2:55pm Chief Complaint Admit Date LABWORK April 12, 2025 5:00a m PRISON LAB WORK April 24, 2025 5: 55am PRISON LAB WORK May 14, 2025 5:0 0am PRISON LAB WORK May 21, 2025 5: 00am Pacer Check Remote May 24, 2025 5:23 am PRISON LAB WORK May 30, 2025 5: 00am PRISON LAB WORK June 11, 2025 4 :00am Pacer Check Remote June 14, 2025 1:1 2am Pacer Check Remote June 18, 2025 9: 00am 6 M FU/ Seeing MMM at 2pm June 18, 2 025 1:15pm 6 M FU/ Seeing Maribell at 1:30pm June 1:17pm LABWORK July 09, 2025 5:00am PRISON LAB WORK July 16 5:00am 6 M FU July 16, 2025 2:55pm Family History No Family History Records Found Relationship Condition Age at Onset Recorded Date/T shelly daughter Cardiac disease Unknown Diabetes mellitus Unknown mother Disorder of thyroid Unknown Advance Directives No Advanced Directives Records Found Advance Directive Response Recorded Date/ Time Name of Medical Power of Drafter Heating And Ventilating BOB FERRARO December 30, 2021 2:54pm Advance Directives Yes May 05 11:01am Living Will Yes February 10, 2022 3:26am Power of Drafter Heating And Ventilating Yes February 10 3:26am Documents on File Type Date Recorded Patient Industrial Hygienist Expl anation Advance Directives and Livin g Will 02/11/2022 2:47 PM Advance Directives and Livin g Will 02/11/2022 3:13 PM Power of Drafter Heating And Ventilating 02/11/2022 3:13 PM Latest Code Status on File Code Status Date Activated Date Inactivated Comments Full Code 02/10/2022 3:42 PM 02/19/2022 12:43 PM Documents on File Type Date Recorded Patient Industrial Hygienist Expl anation Advance Directives and Livin g Will 02/19/2022 7:10 PM Advance Directives and Livin g Will 02/19/2022 7:11 PM Power of Drafter Heating And Ventilating 02/19/2022 7:10 PM Advance Directives and Livin g Will 02/11/2022 2:47 PM Advance Directives and Livin g Will 02/11/2022 3:13 PM Power of Drafter Heating And Ventilating 02/11/2022 3:13 PM Documents on File Type Date Recorded Patient Industrial Hygienist Expl anation Advance Directives and Livin g Will 02/19/2022 7:10 PM Advance Directives and Livin g Will 02/19/2022 7:11 PM Power of Drafter Heating And Ventilating 02/19/2022 7:10 PM Advance Directives and Livin g Will 02/11/2022 3:13 PM Power of Drafter Heating And Ventilating 02/11/2022 3:13 PM Documents on File Type Date Recorded Patient Industrial Hygienist Expl anation Advance Directives and Livin g Will 02/19/2022 7:10 PM Advance Directives and Livin g Will 02/19/2022 7:11 PM Power of Drafter Heating And Ventilating 02/19/2022 7:10 PM Advance Directives and Livin g Will 02/11/2022 3:13 PM Power of Drafter Heating And Ventilating 02/11/2022 3:13 PM Latest Code Status on File Code Status Date Activated Date Inactivated Comments Full Code 02/10/2022 3:42 PM 02/19/2022 12:43 PM Advance Directive Response Recorded Date/ Time Name of Medical Power of Drafter Heating And Ventilating BOBCRAIG FERRARO December 30, 2021 2:54pm Name of Medical Power of Drafter Heating And Ventilating BOB FERRARO February 10, 2022 3:26am Advance Directives Yes May 05 11:01am Living Will Yes February 19, 2022 4:02pm Power of Drafter Heating And Ventilating Yes February 19 4:02pm Advance Directive Response Recorded Date/ Time Name of Medical Power of Drafter Heating And Ventilating BOB FERRARO December 30, 2021 2:54pm Name of Medical Power of Drafter Heating And Ventilating BOB FERRARO February 10, 2022 3:26am Name of Medical Power of Drafter Heating And Ventilating Bob Ferraro February 19, 2022 4:02pm Name of Medical Power of Drafter Heating And Ventilating Bob-Signific ant Other April 25, 2022 8:30pm Advance Directives Yes May 05 11:01am Living Will Yes April 25, 2022 8:30pm Power of Drafter Heating And Ventilating Yes April 25 8:30pm Advance Directive Response Recorded Date/ Time Name of Medical Power of Drafter Heating And Ventilating BOB FERRARO December 30, 2021 2:54pm Name of Medical Power of Drafter Heating And Ventilating BOB FERRARO February 10, 2022 3:26am Name of Medical Power of Drafter Heating And Ventilating Bob Ferraro February 19, 2022 4:02pm Name of Medical Power of Drafter Heating And Ventilating Bob-Signific ant Other April 25, 2022 8:30pm Advance Directives Yes May 05 11:01am Living Will No April 30, 2022 2:25am Power of Drafter Heating And Ventilating No April 30 2:25am Advance Directive Response Recorded Date/ Time Name of Medical Power of Drafter Heating And Ventilating BOB FERRARO February 10, 2022 3:26am Name of Medical Power of Drafter Heating And Ventilating Bob Ferraro February 19, 2022 4:02pm Name of Medical Power of Drafter Heating And Ventilating Bob-Signific ant Other April 25, 2022 8:30pm Advance Directives Yes May 05 11:01am Living Will No April 30, 2022 2:25am Power of Drafter Heating And Ventilating No April 30 2:25am Advance Directive Response Recorded Date/ Time Name of Medical Power of Drafter Heating And Ventilating BOB FERRARO February 10, 2022 3:26am Name of Medical Power of Drafter Heating And Ventilating Bob Ferraro February 19, 2022 4:02pm Name of Medical Power of Drafter Heating And Ventilating Bob-Signific ant Other April 25, 2022 8:30pm Name of Medical Power of Drafter Heating And Ventilating bob ferraro June 07, 2022 1:43pm Advance Directives Yes May 05 11:01am Living Will Yes June 07, 2022 1:43pm Power of Drafter Heating And Ventilating Yes June 07 1:43pm Advance Directive Response Recorded Date/ Time Name of Medical Power of Drafter Heating And Ventilating Bob Ferraro February 19, 2022 4:02pm Name of Medical Power of Drafter Heating And Ventilating Bob-Signific ant Other April 25, 2022 8:30pm Name of Medical Power of Drafter Heating And Ventilating bob ferraro June 07, 2022 1:43pm Advance Directives Yes May 05 11:01am Living Will Yes June 07, 2022 1:43pm Power of Drafter Heating And Ventilating Yes June 07 1:43pm Advance Directive Response Recorded Date/ Time Name of Medical Power of Drafter Heating And Ventilating Katie ant Other April 25, 2022 8:30pm Name of Medical Power of Drafter Heating And Ventilating bob ferraro June 07, 2022 1:43pm Advance Directives Yes May 05 11:01am Living Will Yes June 07, 2022 1:43pm Power of Drafter Heating And Ventilating Yes June 07 1:43pm Advance Directive Response Recorded Date/ Time Advance Directives Yes May 05 10:01am Living Will Yes June 07, 2022 12:43pm Power of Drafter Heating And Ventilating Yes June 07 12:43pm Advance Directive Response Recorded Date/ Time Name of Medical Power of Drafter Heating And Ventilating BOB April 10, 2023 12:51pm Advance Directives Yes May 05 11:01am Living Will Yes April 10, 2023 1 2:51pm Power of Drafter Heating And Ventilating Yes April 10, 2023 12:51pm Advance Directive Response Recorded Date/ Time Name of Medical Power of Drafter Heating And Ventilating Bob Ferraro April 10, 2023 10:19pm Advance Directives Yes May 05 11:01am Living Will Yes April 10, 2023 1 0:19pm Power of Drafter Heating And Ventilating Yes April 10, 2023 10:19pm Advance Directive Response Recorded Date/ Time Name of Medical Power of Drafter Heating And Ventilating Bob Ferraro April 10, 2023 10:19pm Name of Medical Power of Drafter Heating And Ventilating Bob Ferraro April 13, 2023 2:13pm Advance Directives Yes May 05 11:01am Living Will Yes April 13, 2023 2 :13pm Power of Drafter Heating And Ventilating Yes April 13, 2023 2:13pm Advance Directive Response Recorded Date/ Time Name of Medical Power of Drafter Heating And Ventilating Bob Ferraro April 10, 2023 10:19pm Name of Medical Power of Drafter Heating And Ventilating bob ferraro April 13, 2023 8:45pm Advance Directives Yes May 05 11:01am Living Will No April 23, 2023 10:16am Power of Drafter Heating And Ventilating No April 23 10:16am Advance Directive Response Recorded Date/ Time Name of Medical Power of Drafter Heating And Ventilating Bob Ferraro April 10, 2023 10:19pm Name of Medical Power of Drafter Heating And Ventilating bob ferraro April 13, 2023 8:45pm Advance Directives Yes May 05 11:01am Living Will No April 23, 2023 3:00pm Power of Drafter Heating And Ventilating No April 23 3:00pm Advance Directive Response Recorded Date/ Time Name of Medical Power of Drafter Heating And Ventilating Bob Ferraro April 10, 2023 10:19pm Name of Medical Power of Drafter Heating And Ventilating bob ferraro April 13, 2023 8:45pm Advance Directives Yes May 05 11:01am Living Will No June 21 12:26pm Power of Drafter Heating And Ventilating No June 21 023 12:26pm Advance Directive Response Recorded Date/ Time Name of Medical Power of Drafter Heating And Ventilating Bob Ferraro April 10, 2023 10:19pm Name of Medical Power of Drafter Heating And Ventilating bob ferraro April 13, 2023 8:45pm Advance Directives Yes May 05 11:01am Living Will No June 21 3 5:55pm Power of Drafter Heating And Ventilating No June 21 023 5:55pm Advance Directive Response Recorded Date/ Time Advance Directives Yes May 05 11:01am Living Will No June 21 3 5:55pm Power of Drafter Heating And Ventilating No June 21, 2 023 5:55pm Advance Directive Response Recorded Date/ Time Advance Directives Yes May 05 10:01am Living Will No June 21 3 4:55pm Power of Drafter Heating And Ventilating No June 21, 2 023 4:55pm Advance Directive Response Recorded Date/ Time Living Will No June 21 3 5:55pm Do you have a Healthcare Power of Drafter Heating And Ventilating? No June 21, 2023 5:55pm Advance Directives Yes June 19, 2024 2:43pm Advance Directive Response Recorded Date/ Time Advance Directives Yes June 19, 2024 2:43pm Reason for Referral Specialty Diagnoses / Procedures Referred By Contac t Referred To Contact Radiology Diagnoses Low back pain without sciatica, unspecified back pain laterality, unspecified chronicity Procedures MR Lumbar Spine Without Contrast Munira Dickerson MD [address] [place] [address] Referral ID Status Reason Start Date Expiration Date V isits Requested Visits Authorized [id number] Authorized 03/30/2022 03/30/2023 1 1 Specialty Diagnoses / Procedures Referred By Contac t Referred To Contact Orthopedics Diagnoses 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 History of right hip replacement Procedures CONSULT TO ORTHOPAEDICS OFFICE/OUTPATIENT [facility] 60 MINUTES Jonnathan Kothari DO [address] [place] [address] Referral ID Status Reason Start Date Expiration Date Visits Requested Visits Authorized [id number] Authorized PCP Requested Referral 03/25/2024 03/25/2025 1 1 Specialty Diagnoses / Procedures Referred By Contac t Referred To Contact Pain Management Diagnoses Chronic right hip pain Procedures CONSULT TO PAIN MGT OFFICE/OUTPATIENT [facility] 60 MINUTES Maximo Watkins MD [address] [place] [address] Referral ID Status Reason Start Date Expiration Date Visits Requested Visits Authorized [id number] Authorized PCP Requested Referral 06/13/2024 06/13/2025 1 1 Summary Purpose Additional Source Comments Source Comments (unrecognize d section and content) In the event this informatio n is protected by the Federal Confidentiality of Alcohol and Drug Abuse Patient Records regulations: The Federal rules restrict any use of the information to criminally investigate or prosecute any alcohol or drug abuse patient.[facility] the event this information is protected by the Federal Confidentiality of Alcohol and Drug Abuse Patient Records regulations: The Federal rules restrict any use of the information to criminally investigate or prosecute any alcohol or drug abuse patient.[facility] the event this information is protected by the Federal Confidentiality of Alcohol and Drug Abuse Patient Records regulations: The Federal rules restrict any use of the information to criminally investigate or prosecute any alcohol or drug abuse patient.[facility] the event this information is protected by the Federal Confidentiality of Alcohol and Drug Abuse Patient Records regulations: The Federal rules restrict any use of the information to criminally investigate or prosecute any alcohol or drug abuse patient.[facility] the event this information is protected by the Federal Confidentiality of Alcohol and Drug Abuse Patient Records regulations: The Federal rules restrict any use of the information to criminally investigate or prosecute any alcohol or drug abuse patient.[facility] the event this information is protected by the Federal Confidentiality of Alcohol and Drug Abuse Patient Records regulations: The Federal rules restrict any use of the information to criminally investigate or prosecute any alcohol or drug abuse patient.[facility] the event this information is protected by the Federal Confidentiality of Alcohol and Drug Abuse Patient Records regulations: The Federal rules restrict any use of the information to criminally investigate or prosecute any alcohol or drug abuse patient.[facility] the event this information is protected by the Federal Confidentiality of Alcohol and Drug Abuse Patient Records regulations: The Federal rules restrict any use of the information to criminally investigate or prosecute any alcohol or drug abuse patient.[facility] the event this information is protected by the Federal Confidentiality of Alcohol and Drug Abuse Patient Records regulations: The Federal rules restrict any use of the information to criminally investigate or prosecute any alcohol or drug abuse patient.[facility] the event this information is protected by the Federal Confidentiality of Alcohol and Drug Abuse Patient Records regulations: The Federal rules restrict any use of the information to criminally investigate or prosecute any alcohol or drug abuse patient.[facility] the event this information is protected by the Federal Confidentiality of Alcohol and Drug Abuse Patient Records regulations: The Federal rules restrict any use of the information to criminally investigate or prosecute any alcohol or drug abuse patient.[facility] the event this information is protected by the Federal Confidentiality of Alcohol and Drug Abuse Patient Records regulations: The Federal rules restrict any use of the information to criminally investigate or prosecute any alcohol or drug abuse patient.[facility] the event this information is protected by the Federal Confidentiality of Alcohol and Drug Abuse Patient Records regulations: The Federal rules restrict any use of the information to criminally investigate or prosecute any alcohol or drug abuse patient.[facility] the event this information is protected by the Federal Confidentiality of Alcohol and Drug Abuse Patient Records regulations: The Federal rules restrict any use of the information to criminally investigate or prosecute any alcohol or drug abuse patient.[facility] the event this information is protected by the Federal Confidentiality of Alcohol and Drug Abuse Patient Records regulations: The Federal rules restrict any use of the information to criminally investigate or prosecute any alcohol or drug abuse patient.[facility] the event this information is protected by the Federal Confidentiality of Alcohol and Drug Abuse Patient Records regulations: The Federal rules restrict any use of the information to criminally investigate or prosecute any alcohol or drug abuse patient.[facility] the event this information is protected by the Federal Confidentiality of Alcohol and Drug Abuse Patient Records regulations: The Federal rules restrict any use of the information to criminally investigate or prosecute any alcohol or drug abuse patient.[facility] the event this information is protected by the Federal Confidentiality of Alcohol and Drug Abuse Patient Records regulations: The Federal rules restrict any use of the information to criminally investigate or prosecute any alcohol or drug abuse patient.[facility] the event this information is protected by the Federal Confidentiality of Alcohol and Drug Abuse Patient Records regulations: The Federal rules restrict any use of the information to criminally investigate or prosecute any alcohol or drug abuse patient.[facility] the event this information is protected by the Federal Confidentiality of Alcohol and Drug Abuse Patient Records regulations: The Federal rules restrict any use of the information to criminally investigate or prosecute any alcohol or drug abuse patient.[facility]In the event this information is protected by the Federal Confidentiality of Alcohol and Drug Abuse Patient Records regulations: The Federal rules restrict any use of the information to criminally investigate or prosecute any alcohol or drug abuse patient.[facility] HospitalIn the event this information is protected by the Federal Confidentiality of Alcohol and Drug Abuse Patient Records regulations: The Federal rules restrict any use of the information to criminally investigate or prosecute any alcohol or drug abuse patient.[facility] HospitalIn the event this information is protected by the Federal Confidentiality of Alcohol and Drug Abuse Patient Records regulations: The Federal rules restrict any use of the information to criminally investigate or prosecute any alcohol or drug abuse patient.[facility] HospitalIn the event this information is protected by the Federal Confidentiality of Alcohol and Drug Abuse Patient Records regulations: The Federal rules restrict any use of the information to criminally investigate or prosecute any alcohol or drug abuse patient.[facility] HospitalIn the event this information is protected by the Federal Confidentiality of Alcohol and Drug Abuse Patient Records regulations: The Federal rules restrict any use of the information to criminally investigate or prosecute any alcohol or drug abuse patient.[facility] HospitalIn the event this information is protected by the Federal Confidentiality of Alcohol and Drug Abuse Patient Records regulations: The Federal rules restrict any use of the information to criminally investigate or prosecute any alcohol or drug abuse patient.[facility] HospitalIn the event this information is protected by the Federal Confidentiality of Alcohol and Drug Abuse Patient Records regulations: The Federal rules restrict any use of the information to criminally investigate or prosecute any alcohol or drug abuse patient.[facility] HospitalIn the event this information is protected by the Federal Confidentiality of Alcohol and Drug Abuse Patient Records regulations: The Federal rules restrict any use of the information to criminally investigate or prosecute any alcohol or drug abuse patient.[facility] HospitalIn the event this information is protected by the Federal Confidentiality of Alcohol and Drug Abuse Patient Records regulations: The Federal rules restrict any use of the information to criminally investigate or prosecute any alcohol or drug abuse patient.[facility] HospitalIn the event this information is protected by the Federal Confidentiality of Alcohol and Drug Abuse Patient Records regulations: The Federal rules restrict any use of the information to criminally investigate or prosecute any alcohol or drug abuse patient.[facility] HospitalIn the event this information is protected by the Federal Confidentiality of Alcohol and Drug Abuse Patient Records regulations: The Federal rules restrict any use of the information to criminally investigate or prosecute any alcohol or drug abuse patient.[facility] HospitalIn the event this information is protected by the Federal Confidentiality of Alcohol and Drug Abuse Patient Records regulations: The Federal rules restrict any use of the information to criminally investigate or prosecute any alcohol or drug abuse patient.[facility] HospitalIn the event this information is protected by the Federal Confidentiality of Alcohol and Drug Abuse Patient Records regulations: The Federal rules restrict any use of the information to criminally investigate or prosecute any alcohol or drug abuse patient.[facility] HospitalIn the event this information is protected by the Federal Confidentiality of Alcohol and Drug Abuse Patient Records regulations: The Federal rules restrict any use of the information to criminally investigate or prosecute any alcohol or drug abuse patient.[facility] HospitalIn the event this information is protected by the Federal Confidentiality of Alcohol and Drug Abuse Patient Records regulations: The Federal rules restrict any use of the information to criminally investigate or prosecute any alcohol or drug abuse patient.[facility] HospitalIn the event this information is protected by the Federal Confidentiality of Alcohol and Drug Abuse Patient Records regulations: The Federal rules restrict any use of the information to criminally investigate or prosecute any alcohol or drug abuse patient.[facility] HospitalIn the event this information is protected by the Federal Confidentiality of Alcohol and Drug Abuse Patient Records regulations: The Federal rules restrict any use of the information to criminally investigate or prosecute any alcohol or drug abuse patient.[facility] HospitalIn the event this information is protected by the Federal Confidentiality of Alcohol and Drug Abuse Patient Records regulations: The Federal rules restrict any use of the information to criminally investigate or prosecute any alcohol or drug abuse patient.[facility] HospitalIn the event this information is protected by the Federal Confidentiality of Alcohol and Drug Abuse Patient Records regulations: The Federal rules restrict any use of the information to criminally investigate or prosecute any alcohol or drug abuse patient.[facility] HospitalIn the event this information is protected by the Federal Confidentiality of Alcohol and Drug Abuse Patient Records regulations: The Federal rules restrict any use of the information to criminally investigate or prosecute any alcohol or drug abuse patient.[facility] HospitalIn the event this information is protected by the Federal Confidentiality of Alcohol and Drug Abuse Patient Records regulations: The Federal rules restrict any use of the information to criminally investigate or prosecute any alcohol or drug abuse patient.[facility] HospitalIn the event this information is protected by the Federal Confidentiality of Alcohol and Drug Abuse Patient Records regulations: The Federal rules restrict any use of the information to criminally investigate or prosecute any alcohol or drug abuse patient.[facility] HospitalIn the event this information is protected by the Federal Confidentiality of Alcohol and Drug Abuse Patient Records regulations: The Federal rules restrict any use of the information to criminally investigate or prosecute any alcohol or drug abuse patient.[facility] HospitalIn the event this information is protected by the Federal Confidentiality of Alcohol and Drug Abuse Patient Records regulations: The Federal rules restrict any use of the information to criminally investigate or prosecute any alcohol or drug abuse patient.[facility] HospitalIn the event this information is protected by the Federal Confidentiality of Alcohol and Drug Abuse Patient Records regulations: The Federal rules restrict any use of the information to criminally investigate or prosecute any alcohol or drug abuse patient.[facility] HospitalIn the event this information is protected by the Federal Confidentiality of Alcohol and Drug Abuse Patient Records regulations: The Federal rules restrict any use of the information to criminally investigate or prosecute any alcohol or drug abuse patient.[facility] HospitalIn the event this information is protected by the Federal Confidentiality of Alcohol and Drug Abuse Patient Records regulations: The Federal rules restrict any use of the information to criminally investigate or prosecute any alcohol or drug abuse patient.[facility] HospitalIn the event this information is protected by the Federal Confidentiality of Alcohol and Drug Abuse Patient Records regulations: The Federal rules restrict any use of the information to criminally investigate or prosecute any alcohol or drug abuse patient.[facility] HospitalIn the event this information is protected by the Federal Confidentiality of Alcohol and Drug Abuse Patient Records regulations: The Federal rules restrict any use of the information to criminally investigate or prosecute any alcohol or drug abuse patient.[facility] HospitalIn the event this information is protected by the Federal Confidentiality of Alcohol and Drug Abuse Patient Records regulations: The Federal rules restrict any use of the information to criminally investigate or prosecute any alcohol or drug abuse patient.[facility] HospitalIn the event this information is protected by the Federal Confidentiality of Alcohol and Drug Abuse Patient Records regulations: The Federal rules restrict any use of the information to criminally investigate or prosecute any alcohol or drug abuse patient.[facility] HospitalIn the event this information is protected by the Federal Confidentiality of Alcohol and Drug Abuse Patient Records regulations: The Federal rules restrict any use of the information to criminally investigate or prosecute any alcohol or drug abuse patient.[facility] HospitalIn the event this information is protected by the Federal Confidentiality of Alcohol and Drug Abuse Patient Records regulations: The Federal rules restrict any use of the information to criminally investigate or prosecute any alcohol or drug abuse patient.[facility] HospitalIn the event this information is protected by the Federal Confidentiality of Alcohol and Drug Abuse Patient Records regulations: The Federal rules restrict any use of the information to criminally investigate or prosecute any alcohol or drug abuse patient.[facility] HospitalIn the event this information is protected by the Federal Confidentiality of Alcohol and Drug Abuse Patient Records regulations: The Federal rules restrict any use of the information to criminally investigate or prosecute any alcohol or drug abuse patient.[facility] HospitalIn the event this information is protected by the Federal Confidentiality of Alcohol and Drug Abuse Patient Records regulations: The Federal rules restrict any use of the information to criminally investigate or prosecute any alcohol or drug abuse patient.[facility] HospitalIn the event this information is protected by the Federal Confidentiality of Alcohol and Drug Abuse Patient Records regulations: The Federal rules restrict any use of the information to criminally investigate or prosecute any alcohol or drug abuse patient.[facility] HospitalIn the event this information is protected by the Federal Confidentiality of Alcohol and Drug Abuse Patient Records regulations: The Federal rules restrict any use of the information to criminally investigate or prosecute any alcohol or drug abuse patient.[facility] HospitalIn the event this information is protected by the Federal Confidentiality of Alcohol and Drug Abuse Patient Records regulations: The Federal rules restrict any use of the information to criminally investigate or prosecute any alcohol or drug abuse patient.[facility] HospitalIn the event this information is protected by the Federal Confidentiality of Alcohol and Drug Abuse Patient Records regulations: The Federal rules restrict any use of the information to criminally investigate or prosecute any alcohol or drug abuse patient.[facility] HospitalIn the event this information is protected by the Federal Confidentiality of Alcohol and Drug Abuse Patient Records regulations: The Federal rules restrict any use of the information to criminally investigate or prosecute any alcohol or drug abuse patient.[facility] HospitalIn the event this information is protected by the Federal Confidentiality of Alcohol and Drug Abuse Patient Records regulations: The Federal rules restrict any use of the information to criminally investigate or prosecute any alcohol or drug abuse patient.[facility] HospitalIn the event this information is protected by the Federal Confidentiality of Alcohol and Drug Abuse Patient Records regulations: The Federal rules restrict any use of the information to criminally investigate or prosecute any alcohol or drug abuse patient.[facility] HospitalIn the event this information is protected by the Federal Confidentiality of Alcohol and Drug Abuse Patient Records regulations: The Federal rules restrict any use of the information to criminally investigate or prosecute any alcohol or drug abuse patient.[facility] HospitalIn the event this information is protected by the Federal Confidentiality of Alcohol and Drug Abuse Patient Records regulations: The Federal rules restrict any use of the information to criminally investigate or prosecute any alcohol or drug abuse patient.[facility] HospitalIn the event this information is protected by the Federal Confidentiality of Alcohol and Drug Abuse Patient Records regulations: The Federal rules restrict any use of the information to criminally investigate or prosecute any alcohol or drug abuse patient.[facility] HospitalIn the event this information is protected by the Federal Confidentiality of Alcohol and Drug Abuse Patient Records regulations: The Federal rules restrict any use of the information to criminally investigate or prosecute any alcohol or drug abuse patient.[facility] HospitalIn the event this information is protected by the Federal Confidentiality of Alcohol and Drug Abuse Patient Records regulations: The Federal rules restrict any use of the information to criminally investigate or prosecute any alcohol or drug abuse patient.[facility] HospitalIn the event this information is protected by the Federal Confidentiality of Alcohol and Drug Abuse Patient Records regulations: The Federal rules restrict any use of the information to criminally investigate or prosecute any alcohol or drug abuse patient.[facility] HospitalIn the event this information is protected by the Federal Confidentiality of Alcohol and Drug Abuse Patient Records regulations: The Federal rules restrict any use of the information to criminally investigate or prosecute any alcohol or drug abuse patient.[facility] HospitalIn the event this information is protected by the Federal Confidentiality of Alcohol and Drug Abuse Patient Records regulations: The Federal rules restrict any use of the information to criminally investigate or prosecute any alcohol or drug abuse patient.[facility] HospitalIn the event this information is protected by the Federal Confidentiality of Alcohol and Drug Abuse Patient Records regulations: The Federal rules restrict any use of the information to criminally investigate or prosecute any alcohol or drug abuse patient.[facility] HospitalIn the event this information is protected by the Federal Confidentiality of Alcohol and Drug Abuse Patient Records regulations: The Federal rules restrict any use of the information to criminally investigate or prosecute any alcohol or drug abuse patient.[facility] HospitalIn the event this information is protected by the Federal Confidentiality of Alcohol and Drug Abuse Patient Records regulations: The Federal rules restrict any use of the information to criminally investigate or prosecute any alcohol or drug abuse patient.[facility] HospitalIn the event this information is protected by the Federal Confidentiality of Alcohol and Drug Abuse Patient Records regulations: The Federal rules restrict any use of the information to criminally investigate or prosecute any alcohol or drug abuse patient.[facility] HospitalIn the event this information is protected by the Federal Confidentiality of Alcohol and Drug Abuse Patient Records regulations: The Federal rules restrict any use of the information to criminally investigate or prosecute any alcohol or drug abuse patient.[facility] HospitalIn the event this information is protected by the Federal Confidentiality of Alcohol and Drug Abuse Patient Records regulations: The Federal rules restrict any use of the information to criminally investigate or prosecute any alcohol or drug abuse patient.[facility] HospitalIn the event this information is protected by the Federal Confidentiality of Alcohol and Drug Abuse Patient Records regulations: The Federal rules restrict any use of the information to criminally investigate or prosecute any alcohol or drug abuse patient.[facility] HospitalIn the event this information is protected by the Federal Confidentiality of Alcohol and Drug Abuse Patient Records regulations: The Federal rules restrict any use of the information to criminally investigate or prosecute any alcohol or drug abuse patient.[facility] HospitalIn the event this information is protected by the Federal Confidentiality of Alcohol and Drug Abuse Patient Records regulations: The Federal rules restrict any use of the information to criminally investigate or prosecute any alcohol or drug abuse patient.[facility] HospitalIn the event this information is protected by the Federal Confidentiality of Alcohol and Drug Abuse Patient Records regulations: The Federal rules restrict any use of the information to criminally investigate or prosecute any alcohol or drug abuse patient.[facility] HospitalIn the event this information is protected by the Federal Confidentiality of Alcohol and Drug Abuse Patient Records regulations: The Federal rules restrict any use of the information to criminally investigate or prosecute any alcohol or drug abuse patient.[facility] HospitalIn the event this information is protected by the Federal Confidentiality of Alcohol and Drug Abuse Patient Records regulations: The Federal rules restrict any use of the information to criminally investigate or prosecute any alcohol or drug abuse patient.[facility] HospitalIn the event this information is protected by the Federal Confidentiality of Alcohol and Drug Abuse Patient Records regulations: The Federal rules restrict any use of the information to criminally investigate or prosecute any alcohol or drug abuse patient.[facility] HospitalIn the event this information is protected by the Federal Confidentiality of Alcohol and Drug Abuse Patient Records regulations: The Federal rules restrict any use of the information to criminally investigate or prosecute any alcohol or drug abuse patient.[facility] HospitalIn the event this information is protected by the Federal Confidentiality of Alcohol and Drug Abuse Patient Records regulations: The Federal rules restrict any use of the information to criminally investigate or prosecute any alcohol or drug abuse patient.[facility] HospitalIn the event this information is protected by the Federal Confidentiality of Alcohol and Drug Abuse Patient Records regulations: The Federal rules restrict any use of the information to criminally investigate or prosecute any alcohol or drug abuse patient.[facility] HospitalIn the event this information is protected by the Federal Confidentiality of Alcohol and Drug Abuse Patient Records regulations: The Federal rules restrict any use of the information to criminally investigate or prosecute any alcohol or drug abuse patient.[facility] HospitalIn the event this information is protected by the Federal Confidentiality of Alcohol and Drug Abuse Patient Records regulations: The Federal rules restrict any use of the information to criminally investigate or prosecute any alcohol or drug abuse patient.[facility] HospitalIn the event this information is protected by the Federal Confidentiality of Alcohol and Drug Abuse Patient Records regulations: The Federal rules restrict any use of the information to criminally investigate or prosecute any alcohol or drug abuse patient.[facility] HospitalIn the event this information is protected by the Federal Confidentiality of Alcohol and Drug Abuse Patient Records regulations: The Federal rules restrict any use of the information to criminally investigate or prosecute any alcohol or drug abuse patient.[facility] HospitalIn the event this information is protected by the Federal Confidentiality of Alcohol and Drug Abuse Patient Records regulations: The Federal rules restrict any use of the information to criminally investigate or prosecute any alcohol or drug abuse patient.[facility] HospitalIn the event this information is protected by the Federal Confidentiality of Alcohol and Drug Abuse Patient Records regulations: The Federal rules restrict any use of the information to criminally investigate or prosecute any alcohol or drug abuse patient.[facility] HospitalIn the event this information is protected by the Federal Confidentiality of Alcohol and Drug Abuse Patient Records regulations: The Federal rules restrict any use of the information to criminally investigate or prosecute any alcohol or drug abuse patient.[facility] HospitalIn the event this information is protected by the Federal Confidentiality of Alcohol and Drug Abuse Patient Records regulations: The Federal rules restrict any use of the information to criminally investigate or prosecute any alcohol or drug abuse patient.[facility] HospitalIn the event this information is protected by the Federal Confidentiality of Alcohol and Drug Abuse Patient Records regulations: The Federal rules restrict any use of the information to criminally investigate or prosecute any alcohol or drug abuse patient.[facility] HospitalIn the event this information is protected by the Federal Confidentiality of Alcohol and Drug Abuse Patient Records regulations: The Federal rules restrict any use of the information to criminally investigate or prosecute any alcohol or drug abuse patient.[facility] HospitalIn the event this information is protected by the Federal Confidentiality of Alcohol and Drug Abuse Patient Records regulations: The Federal rules restrict any use of the information to criminally investigate or prosecute any alcohol or drug abuse patient.[facility] HospitalIn the event this information is protected by the Federal Confidentiality of Alcohol and Drug Abuse Patient Records regulations: The Federal rules restrict any use of the information to criminally investigate or prosecute any alcohol or drug abuse patient.[facility] HospitalIn the event this information is protected by the Federal Confidentiality of Alcohol and Drug Abuse Patient Records regulations: The Federal rules restrict any use of the information to criminally investigate or prosecute any alcohol or drug abuse patient.[facility] HospitalIn the event this information is protected by the Federal Confidentiality of Alcohol and Drug Abuse Patient Records regulations: The Federal rules restrict any use of the information to criminally investigate or prosecute any alcohol or drug abuse patient.[facility] HospitalIn the event this information is protected by the Federal Confidentiality of Alcohol and Drug Abuse Patient Records regulations: The Federal rules restrict any use of the information to criminally investigate or prosecute any alcohol or drug abuse patient.[facility] HospitalIn the event this information is protected by the Federal Confidentiality of Alcohol and Drug Abuse Patient Records regulations: The Federal rules restrict any use of the information to criminally investigate or prosecute any alcohol or drug abuse patient.[facility] HospitalIn the event this information is protected by the Federal Confidentiality of Alcohol and Drug Abuse Patient Records regulations: The Federal rules restrict any use of the information to criminally investigate or prosecute any alcohol or drug abuse patient.[facility] HospitalIn the event this information is protected by the Federal Confidentiality of Alcohol and Drug Abuse Patient Records regulations: The Federal rules restrict any use of the information to criminally investigate or prosecute any alcohol or drug abuse patient.[facility] HospitalIn the event this information is protected by the Federal Confidentiality of Alcohol and Drug Abuse Patient Records regulations: The Federal rules restrict any use of the information to criminally investigate or prosecute any alcohol or drug abuse patient.[facility] the event this information is protected by the Federal Confidentiality of Alcohol and Drug Abuse Patient Records regulations: The Federal rules restrict any use of the information to criminally investigate or prosecute any alcohol or drug abuse patient.[facility] HospitalIn the event this information is protected by the Federal Confidentiality of Alcohol and Drug Abuse Patient Records regulations: The Federal rules restrict any use of the information to criminally investigate or prosecute any alcohol or drug abuse patient.[facility] Reason for Visit (unrecogniz ed section [...] Reason Comments Results Reason Comments Faxed to [facility] med/surg Reason Comments Patient Request Patient is going to the 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 Reason Comments Hospital F/U Reason Comments verbal [...] cancer (HCC) Procedures LEUPROLIDE ACETATE SUSPNSION Jonnathan Kothari, DO [address] [place] [address] [facility] [address] [place] [address] Referral ID Status Reason Start Date Expiration Date V isits Requested Visits Authorized [id number] Authorized 09/28/2023 11/06/2024 99 99 Reason Onset Date Comments Community Monitoring Outreach 01/18/2024 Reason Comments Established Patient Follow Up Reason Comments Established Patient Reason Comments Results Reason Comments Established Patient Follow-Up Specialty Diagnoses / Procedures [facility] To Contact Diagnoses Prostate cancer (HCC) Kourtney Bhatia MD [address] [place] [address] [facility] [address] [place] [address] Referral ID Status Reason Start Date Expiration Date V isits Requested Visits Authorized [id number] Authorized 05/23/2024 08/21/2024 99 99 Reason Comments New Pain Reason Comments Education Of Patient/family Appointment Voicemaelisabeth couch 08/22/2024 Appointment Reason Comments Established Patient Follow Up Results Reason Comments Established Patient Reason Comments Orders New lab orders for A pril appt Reason Comments Established Patient Liver Disease Reason Comments 08.07.25 Cure Open Right Inguinal Hernia Repair 2.5 hours los 2 Specialty Diagnoses / Procedures Referred By Contac t Referred To Contact Diagnoses Prostate cancer (HCC) Procedures LEUPROLIDE ACETATE SUSPNSION Jonnathan Kothari, DO [address] [place] [address] Phone: tel: fax: Hematology/Oncology [address] [place] [address] Phone: tel: fax: Referral ID Status Reason Start Date Expiration Date Visits Re quested Visits Authorized [id number] Closed 09/28/2023 11/06/2024 99 99 Reason Comments Established Patient Liver disease Care Teams (unrecognized sec tion and content) Nuclear Scientist Relationship Specialty Start Date End Date Manuel Beebe MD [address] [place], [place] [id number] PCP - General Internal Medicine 12/31/13 Nivia, Cosme S Cementer Machine Cardiology 07/09/20 Albino Copeland, communications equipment supervisorChildren'S Choir Director Internal Medicine 05/19/21 Nuclear Scientist Relationship Specialty Start Date End Date Manuel Beebe MD [address] [place], [place] [id number] PCP - General Internal Medicine 12/31/13 Nivia, [place] S Cementer Machine Cardiology 07/09/20 Albino Copeland, communications equipment supervisorChildren'S Choir Director Internal Medicine 05/19/21 Jana Lara, [facility] [address] [place] [address] Pharmacist Pharmacy 02/02/22 Nuclear Scientist Relationship Specialty Start Date End Date Manuel Beebe MD [address] [place], [place] [id number] PCP - General Internal Medicine 12/31/13 Nivia, [place] S Cementer Machine Cardiology 07/09/20 Albino Copeland, communications equipment supervisorChildren'S Choir Director Internal Medicine 05/19/21 Jana Lara, [facility] [address] [place], [place] [id number] [phone] Pharmacist Pharmacy 02/02/22 Nuclear Scientist Relationship Specialty Start Date End Date Manuel Beebe MD [address] [place] [address] PCP - General Internal Medicine 12/31/13 Nivia, [place] S Cementer Machine Cardiology 07/09/20 Albino Copeland, communications equipment supervisorChildren'S Choir Director Internal Medicine 05/19/21 [facility] [address] [place] [address] Pharmacist Pharmacy 02/02/22 Nuclear Scientist Relationship Specialty Start Date End Date No, Physician [facility] PCP - General 02/10/22 Nuclear Scientist Relationship Specialty Start Date End Date Manuel Beebe MD [address] [place] [address] PCP - General Internal Medicine 12/31/13 Nivia, Cosme S Cementer Machine Cardiology 07/09/20 Albino Copeland, communications equipment supervisorChildren'S Choir Director Internal Medicine 05/19/21 [facility] [address] [place] [address] Pharmacist Pharmacy 02/02/22 Nuclear Scientist Relationship Specialty Start Date End Date No, Physician [facility] PCP - General 02/10/22 Nuclear Scientist Relationship Specialty Start Date End Date Manuel Beebe MD [address] [place] [address] PCP - General Internal Medicine 12/31/13 Nivia, Columbus S Cementer Machine Cardiology 07/09/20 Lorrie Osorio, TISH [address] [place] [address] Children'S Choir Director 05/08/2105/08 Dinorah Posada (Rn) [address] [place] [address] Children'S Choir Director Family Practice 05/08/2105/07 Albino Copeland, communications equipment supervisorChildren'S Choir Director Internal Medicine 05/19/21 [facility] [address] [place] [address] Pharmacist Pharmacy 02/02/22 Nuclear Scientist Relationship Specialty Start Date End Date Manuel Beebe MD [address] [place], [place] [address] PCP - General Internal Medicine 12/31/13 Nivia, [place] S Cementer Machine Cardiology 07/09/20 Albino Copeland, communications equipment supervisorChildren'S Choir Director Internal Medicine 05/19/21 [facility] [address] [place] [address] Pharmacist Pharmacy 02/02/22 Nuclear Scientist Relationship Specialty Start Date End Date No, Physician [facility] PCP - General 02/10/22 Nuclear Scientist Relationship Specialty Start Date End Date No, Physician [facility] PCP - General 02/10/22 Nuclear Scientist Relationship Specialty Start Date End Date No, Physician [facility] PCP - General 02/10/22 Nuclear Scientist Relationship Specialty Start Date End Date No, Physician [facility] PCP - General 02/10/22 Nuclear Scientist Relationship Specialty Start Date End Date Manuel Beebe MD [address] [place] [address] PCP - General Internal Medicine 12/31/13 Nivia, Cosme S Cementer Machine Cardiology 07/09/20 Albino Copeland, communications equipment supervisorChildren'S Choir Director Internal Medicine 05/19/21 [facility] [address] [place] [address] Pharmacist Pharmacy 02/02/22 Nuclear Scientist Relationship Specialty Start Date End Date Manuel Beebe MD [address] [place] [address] PCP - General Internal Medicine 12/31/13 Nivia, Cosme S Cementer Machine Cardiology 07/09/20 Albino Copeland, communications equipment supervisorChildren'S Choir Director Internal Medicine 05/19/21 [facility] [address] [place] [address] Pharmacist Pharmacy 02/02/22 Nuclear Scientist Relationship Specialty Start Date End Date Manuel Beebe MD [address] [place] [address] PCP - General Internal Medicine 12/31/13 Nivia, [place] S Cementer Machine Cardiology 07/09/20 Albion Copeland, communications equipment supervisorChildren'S Choir Director Internal Medicine 05/19/21 [facility] [address] [facility] [place] [address] Pharmacist Pharmacy 02/02/22 Nuclear Scientist Relationship Specialty Start Date End Date Manuel Beebe MD [address] [place] [address] PCP - General Internal Medicine 05/05/22 Nuclear Scientist Relationship Specialty Start Date End Date Manuel Beebe MD [address] [place] [address] [place] [address] PCP - General Internal Medicine 05/05/22 Nuclear Scientist Relationship Specialty Start Date End Date Manuel Beebe MD [address] [place] [address] [place] [address] PCP - General Internal Medicine 05/05/22 Nuclear Scientist Relationship Specialty Start Date End Date Manuel Beebe MD [address] [place] [address] PCP - General Internal Medicine 12/31/13 Nivia, Cosme S Cementer Machine Cardiology 07/09/20 Albino Copeland, communications equipment supervisorChildren'S Choir Director Internal Medicine 05/19/21 [facility] [address] [place] [address] Pharmacist Pharmacy 02/02/22 Nuclear Scientist Relationship Specialty Start Date End Date Manuel Beebe MD [address] [place] [address] PCP - General Internal Medicine 12/31/13 Nivia, Cosme S Cementer Machine Cardiology 07/09/20 Albino Copeland, communications equipment supervisorChildren'S Choir Director Internal Medicine 05/19/21 Jana Lara, [facility] [address] [place] [address] Pharmacist Pharmacy 02/02/22 Nuclear Scientist Relationship Specialty Start Date End Date Manuel Beebe MD [address] [place] [address] PCP - General Internal Medicine 12/31/13 Nivia, Cosme S Cementer Machine Cardiology 07/09/20 Albino Copeland, communications equipment supervisorChildren'S Choir Director Internal Medicine 05/19/21 Jana Lara, [facility] [address] [place] [address] Pharmacist Pharmacy 02/02/22 Nuclear Scientist Relationship Specialty Start Date End Date Manuel Beebe MD [address] [place] [address] PCP - General Internal Medicine 12/31/13 Nivia, Cosme S Cementer Machine Cardiology 07/09/20 Dinorah Posada, communications equipment supervisorChildren'S Choir Director Internal Medicine 05/19/21 [facility] [address] [facility] [place] [address] Pharmacist Pharmacy 02/02/22 Nuclear Scientist Relationship Specialty Start Date End Date Manuel Beebe MD [address] [facility] [place] [address] PCP - General Internal Medicine 12/31/13 Nivia, Cosme S [address] [facility] [place] [address] Cementer Machine Cardiology 07/09/20 Dinorah Posada, communications equipment supervisorChildren'S Choir Director Internal Medicine 05/19/21 [facility] [address] [facility] [place] [address] Pharmacist Pharmacy 02/02/22 Nuclear Scientist Relationship Specialty Start Date End Date Manuel Beebe MD [address] [facility] [place] [address] PCP - General Internal Medicine 12/31/13 Nivia, Columbus S [address] [facility] [place] [address] Cementer Machine Cardiology 07/09/20 Dinorah Posada, communications equipment supervisorChildren'S Choir Director Internal Medicine 05/19/21 [facility] [address] [place] [address] Pharmacist Pharmacy 02/02/22 Nuclear Scientist Relationship Specialty Start Date End Date Manuel Beebe MD [address] [facility] [place] [address] PCP - General Internal Medicine 12/31/13 Nivia, Cosme S [address] [place], [place] [address] Cementer Machine Cardiology 07/09/20 Dinorah Posada, communications equipment supervisorChildren'S Choir Director Internal Medicine 05/19/21 MasonJana carpenterResearch Psychiatric Center [address] [place], [place] [id number] Pharmacist Pharmacy 02/02/22 Team Status: Active Member [...] Provider Active PATRICIA Gramajo Attending Provider Active Nuclear Scientist Relationship Specialty Start Date End Date Manuel Beebe MD [address], [place] [id number] PCP - General Internal Medicine 12/31/13 Nivia, Cosme S [address] [place] [place], [place] [id number] Cementer Machine Cardiology 07/09/20 Dinorah Posada, communications equipment supervisorChildren'S Choir Director Internal Medicine 05/19/21 Jana Lara, [facility] [address] [place] [address] Pharmacist Pharmacy 02/02/22 Nuclear Scientist Relationship Specialty Start Date End Date Manuel Beebe MD [address] [place] [address] PCP - General Internal Medicine 12/31/13 Nivia, Cosme S [address] [place] [address] Cementer Machine Cardiology 07/09/20 Dinorah Posada, communications equipment supervisorChildren'S Choir Director Internal Medicine 05/19/21 [facility] [address] [place] [address] Pharmacist Pharmacy 02/02/22 Team Status: Inactive Member Role Status Dates Dr. Manuel Beebe MD Primary Care Provider, Referr ing Provider Active Dr. Adilson Sal DO Attending Provider Active Team Status: Active Member Role Status Dates Dr. Manuel Beebe MD Primary Care Provider Active Dr. Jerry De Paz MD Attending Provider Active Dr. Dwayne Horton MD Referring Provider Active Nuclear Scientist Relationship Specialty Start Date End Date Manuel Beebe MD [address] [place] [address] PCP - General Internal Medicine 12/31/13 Nivia, Columbus S [address] [place] [address] Cementer Machine Cardiology 07/09/20 Dinorah Posada, communications equipment supervisorChildren'S Choir Director Internal Medicine 05/19/21 Jana Lara, [facility] [address] [place] [address] Pharmacist Pharmacy 02/02/22 Nuclear Scientist Relationship Specialty Start Date End Date Manuel Beebe MD [address] [place] [address] PCP - General Internal Medicine 12/31/13 Nivia, Cosme S [address] [place] [address] Cementer Machine Cardiology 07/09/20 Dinorah Posada, communications equipment supervisorChildren'S Choir Director Internal Medicine 05/19/21 [facility] [address] [place] [address] Pharmacist Pharmacy 02/02/22 Nuclear Scientist Relationship Specialty Start Date End Date Manuel Beebe MD [address] [place] [address] PCP - General Internal Medicine 12/31/13 Nivia, Cosme S [address] [place] [address] Cementer Machine Cardiology 07/09/20 Dinorah Posada, communications equipment supervisorChildren'S Choir Director Internal Medicine 05/19/21 [facility] [address] [place] [address] Pharmacist Pharmacy 02/02/22 Team Status: Inactive Member [...] MD Admit Provider, Attending Provid er Active Nuclear Scientist Relationship Specialty Start Date End Date Manuel Beebe MD [address] [place] [address] PCP - General Internal Medicine 12/31/13 Nivia, Cosme S [address] [place] [address] Cementer Machine Cardiology 07/09/20 Dinorah Posada, communications equipment supervisorChildren'S Choir Director Internal Medicine 05/19/21 [facility] [address] [place] [address] Pharmacist Pharmacy 02/02/22 Team Status: Active Member [...] Dr. Fior Turner MD Attending Provider Active Nuclear Scientist Relationship Specialty Start Date End Date Manuel Beebe MD [address] [place] [address] PCP - General Internal Medicine 12/31/13 Nivia, [place] S [address] [place] [address] Cementer Machine Cardiology 07/09/20 Dinorah Posada, communications equipment supervisorChildren'S Choir Director Internal Medicine 05/19/21 Jana Lara, [facility] [address] [place] [address] Pharmacist Pharmacy 02/02/22 Nuclear Scientist Relationship Specialty Start Date End Date Manuel Beebe MD [address] [place] [address] PCP - General Internal Medicine 12/31/13 Nivia, Cosme S [address] [place] [address] Cementer Machine Cardiology 07/09/20 Dinorah Posada, communications equipment supervisorChildren'S Choir Director Internal Medicine 05/19/21 [facility] [address] [place] [address] Pharmacist Pharmacy 02/02/22 Nuclear Scientist Relationship Specialty Start Date End Date Manuel Beebe MD [address] [place] [address] PCP - General Internal Medicine 12/31/13 Nivia, Columbus S [address] [place] [address] Cementer Machine Cardiology 07/09/20 Dinorah Posada, communications equipment supervisorChildren'S Choir Director Internal Medicine 05/19/21 [facility] [address] [place] [address] Pharmacist Pharmacy 02/02/22 Team Status: Active Member Role Status Dates Dr. Manuel Beebe MD Primary Care Provider Active Dr. Jo-Ann Bliss DO Emergency Provider Active Dr. Norris Orellana MD Admit Provider, Attending Provi philip Active Nuclear Scientist Relationship Specialty Start Date End Date Manuel Beebe MD [address] [place] [address] PCP - General Internal Medicine 12/31/13 Nivia, Cosme S [address] [place] [address] Cementer Machine Cardiology 07/09/20 Dinorah Posada, communications equipment supervisorChildren'S Choir Director Internal Medicine 05/19/21 [facility] [address] [place] [address] Pharmacist Pharmacy 02/02/22 Nuclear Scientist Relationship Specialty Start Date End Date Manuel Beebe MD [address] [place], [place] [address] PCP - General Internal Medicine 12/31/13 Cosme Gonzáles [address] [place], [place] [address] Cementer Machine Cardiology 07/09/20 Dinorah Posada, communications equipment supervisorChildren'S Choir Director Internal Medicine 05/19/21 [facility] [address] [place], [place] [address] Pharmacist Pharmacy 02/02/22 Team Status: Active Member [...] Beebe MD Primary Care Provider Active PATRICIA Gleason Attending Provider Active Team Status: Active Member Role Status Dates Dr. Manuel Beebe MD Primary Care Provider Active Dr. Goldy Olivia , Emergency Provider Active Dr. Fior Turner MD Admit Provider, Attending Prov ider Active Team Status: Active Member Role Status Dates Dr. Manuel Beebe MD Primary Care Provider Active Dr. Goldy Olivia , DO Emergency Provider Active Dr. Fior Turner [...] MD Primary Care Provider Active Martha Ashby WATER RESTORATION TECHNICIAN, WATER RESTORATION TECHNICIAN-C Attending Provider Active Team Status: Inactive Member [...] Care Provider Active Dr. Juan Conte , Emergency Provider Active Dr. Maximo Addison MD [...] Care Provider Active Dr. Juan Conte , Emergency Provider Active Dr. Maximo Addison MD Admit Provider, Other Pro vider Active Dr. Norris Orellana MD Attending Provider Active Dr. Quynh Araya , DO Other Provider Active Chandana Jain MD Other Provider Active Nuclear Scientist Relationship Specialty Start Date End Date Manuel Beebe MD [address] [place] [address] PCP - General Internal Medicine 12/31/13 Cosme Gonzáles [address] [place], [place] [id number] Cementer Machine Cardiology 07/09/20 Dinorah Posada, communications equipment supervisorChildren'S Choir Director Internal Medicine 05/19/21 Jana Lara, [facility] [address] [place], [place] [id number] Pharmacist Pharmacy 02/02/22 Team Status: Active Member [...] Dr. Elisa SERRANO MD Attending Provider Active Nuclear Scientist Relationship Specialty Start Date End Date Manuel Beebe MD [address] [place] [address] PCP - General Internal Medicine 12/31/13 Cosme Gonzáles [address] [place] [address] Cementer Machine Cardiology 07/09/20 Dinorah Posada, communications equipment supervisorChildren'S Choir Director Internal Medicine 05/19/21 [facility] [address] [place] [address] Pharmacist Pharmacy 02/02/22 Team Status: Inactive Member Role Status Dates Dr. Manuel Beebe MD Primary Care Provider Active Dr. Adilson Sal DO Attending Provider Active Team Status: Inactive Member Role Status Dates Dr. Manuel Beebe MD Primary Care Provider Active Dr. Elisa SERRANO MD Attending Provider, Referring Provider Active Nuclear Scientist Relationship Specialty Start Date End Date Manuel Beebe MD [address] [place] [address] PCP - General Internal Medicine 12/31/13 Cosme Gonzáles MD [address] [place] [address] Cementer Machine Cardiology 07/09/20 Dinorah Posada, communications equipment supervisorChildren'S Choir Director Internal Medicine 05/19/21 [facility] [address] [place] [address] Pharmacist Pharmacy 02/02/22 Team Status: Inactive Member Role Status Dates Dr. Manuel Beebe MD Primary Care Provider Active Dr. Elisa Narvaez MD Attending Provider Active Nuclear Scientist Relationship Specialty Start Date End Date Manuel Beebe MD [address] [place] [address] PCP - General Internal Medicine 12/31/13 Cosme Gonzáles MD [address] [place] [address] Cementer Machine Cardiology 07/09/20 Dinorah Posada RN Children'S Choir Director Internal Medicine 05/19/21 [facility] [address] [place] [address] Pharmacist Pharmacy 02/02/22 Nuclear Scientist Relationship Specialty Start Date End Date Manuel Beebe MD [address] [place] [address] PCP - General Internal Medicine 12/31/13 Cosme Gonzáles MD [address] [place] [address] Cementer Machine Cardiology 07/09/20 Dinorah Posada, communications equipment supervisorChildren'S Choir Director Internal Medicine 05/19/21 [facility] Pharmacist Pharmacy 02/02/22 Nuclear Scientist Relationship Specialty Start Date End Date Manuel Beebe MD [address] [place] [address] PCP - General Internal Medicine 12/31/13 Cosme Gonzáles MD [address] [facility], [place] [address] Cementer Machine Cardiology 07/09/20 Dinorah Posada, communications equipment supervisorChildren'S Choir Director Internal Medicine 05/19/21 Jana Lara, [facility] Pharmacist Pharmacy 02/02/22 Nuclear Scientist Relationship Specialty Start Date End Date Manuel Beebe MD [address] [place] [address] PCP - General Internal Medicine 12/31/13 Cosme Goználes MD [address] [place] [address] Cementer Machine Cardiology 07/09/20 Dinorah Posada, communications equipment supervisorChildren'S Choir Director Internal Medicine 05/19/21 Nuclear Scientist Relationship Specialty Start Date End Date Manuel Beebe MD [address] [place] [address] PCP - General Internal Medicine 12/31/13 Cosme Gonzáles MD [address] [facility], [place] [address] [phone] Cementer Machine Cardiology 07/09/20 Dinorah Posada, communications equipment supervisorChildren'S Choir Director Internal Medicine 05/19/21 Team Status: Inactive Member Role Status Dates Dr. Manuel Beebe MD Primary Care Provider, Referr ing Provider Active Dr. Cosme Gonzáles MD Attending Provider Active Team Status: Inactive Member Role Status Dates Dr. Manuel Beebe MD Primary Care Provider Active Dr. Cosme Gonzáles MD Attending Provider Active Nuclear Scientist Relationship Specialty Start Date End Date Manuel Beebe MD [address] [place] [address] PCP - General Internal Medicine 12/31/13 Cosme Gnozáles MD [address] [place] [address] Cementer Machine Cardiology 07/09/20 Dinorah Posada, communications equipment supervisorChildren'S Choir Director Internal Medicine 05/19/21 Nuclear Scientist Relationship Specialty Start Date End Date Manuel Beebe MD [address] [place] [address] PCP - General Internal Medicine 12/31/13 Cosme Gonzáles MD [address] [place] [address] Cementer Machine Cardiology 07/09/20 Dinorah Posada, communications equipment supervisorChildren'S Choir Director Internal Medicine 05/19/21 Nuclear Scientist Relationship Specialty Start Date End Date Manuel Beebe MD [address] [place] [address] PCP - General Internal Medicine 12/31/13 Cosme Gonzáles MD [address] [place] [address] Cementer Machine Cardiology 07/09/20 Dinorah Posada, communications equipment supervisorChildren'S Choir Director Internal Medicine 05/19/21 Nuclear Scientist Relationship Specialty Start Date End Date Manuel Beebe MD [address] [place] [address] PCP - General Internal Medicine 12/31/13 Cosme Gonzáles MD [address] [place] [address] Cementer Machine Cardiology 07/09/20 Dinorah Posada, communications equipment supervisorChildren'S Choir Director Internal Medicine 05/19/21 Nuclear Scientist Relationship Specialty Start Date End Date Manuel Beebe MD [address] [place] [address] PCP - General Internal Medicine 12/31/13 Cosme Gonzáles MD [address] [place] [address] [employer] Cardiology 07/09/20 Dinorah Posada, communications equipment supervisorChildren'S Choir Director Internal Medicine 05/19/21 Nuclear Scientist Relationship Specialty Start Date End Date Manuel Beebe MD [address] [place] [address] PCP - General Internal Medicine 12/31/13 Cosme Gonzáles MD [address] [place] [address] [employer] Cardiology 07/09/20 Nuclear Scientist Relationship Specialty Start Date End Date Elisa Narvaez MD [address] [place] [address] PCP - General Gerontology 03/14/24 Cosme Gonzáles MD [employer] 07/09/20 Nuclear Scientist Relationship Specialty Start Date End Date Elisa Narvaez MD [address] [place] [address] PCP - General Gerontology 03/14/24 Cosme Gonzáles MD [employer] Cardiology 07/09/20 Nuclear Scientist Relationship Specialty Start Date End Date Elisa Narvaez MD [address] [place] [address] PCP - General Gerontology 03/14/24 Cosme Gonzáles MD [employer] Cardiology 07/09/20 Nuclear Scientist Relationship Specialty Start Date End Date Elisa Narvaez MD [address] [place] [address] PCP - General Gerontology 03/14/24 Cosme Gonzáles MD [employer] Cardiology 07/09/20 Nuclear Scientist Relationship Specialty Start Date End Date Elisa Narvaez MD [address] [place] [address] PCP - General Gerontology 03/14/24 Cosme Gonzáles MD [employer] Cardiology 07/09/20 Nuclear Scientist Relationship Specialty Start Date End Date Elisa Narvaez MD [address] [place] [address] PCP - General Gerontology 03/14/24 Cosme Gonzáles MD [employer] Cardiology 07/09/20 Nuclear Scientist Relationship Specialty Start Date End Date Elisa Narvaez MD [address] [place] [address] PCP - General Gerontology 03/14/24 Cosme Gonzáles MD [employer] Cardiology 07/09/20 Nuclear Scientist Relationship Specialty Start Date End Date Elisa Narvaez MD [address] [place] [address] PCP - General Gerontology 03/14/24 Cosme Gonzáles MD [employer] Cardiology 07/09/20 Nuclear Scientist Relationship Specialty Start Date End Date Elisa Narvaez MD [address] [place] [address] PCP - General Gerontology 03/14/24 Cosme Gonzáles MD [employer] Cardiology 07/09/20 Nuclear Scientist Relationship Specialty Start Date End Date Elisa Narvaez MD [address] [place] [address] PCP - General Gerontology 03/14/24 Cosme Gonzáles MD [employer] Cardiology 07/09/20 Nuclear Scientist Relationship Specialty Start Date End Date Elisa Narvaez MD [address] [place] [address] PCP - General Gerontology 03/14/24 Cosme Gonzáles MD [employer] Cardiology 07/09/20 Nuclear Scientist Relationship Specialty Start Date End Date Elisa Narvaez MD [address] [place] [id number] PCP - General Gerontology 03/14/24 Cosme Gonzáles MD [employer] Cardiology 07/09/20 Nuclear Scientist Relationship Specialty Start Date End Date Elisa Narvaez MD [address] [place] [id number] PCP - General Gerontology 03/14/24 Cosme Gonzáles MD [employer] Cardiology 07/09/20 Nuclear Scientist Relationship Specialty Start Date End Date Elisa Narvaez MD [address] [place] [address] PCP - General Gerontology 03/14/24 Cosme Gonzáles MD [employer] Cardiology 07/09/20 Nuclear Scientist Relationship Specialty Start Date End Date Elisa Narvaez MD [address] [place] [address] PCP - General Gerontology 03/14/24 Cosme Gonzáles MD [employer] Cardiology 07/09/20 Nuclear Scientist Relationship Specialty Start Date End Date Elisa Narvaez MD [address] [place] [address] PCP - General Gerontology 03/14/24 Cosme Gonzáles MD [employer] Cardiology 07/09/20 Nuclear Scientist Relationship Specialty Start Date End Date Elisa Narvaez MD [address] [place] [address] PCP - General Gerontology 03/14/24 Cosme Gonzáles MD [employer] Cardiology 07/09/20 Nuclear Scientist Relationship Specialty Start Date End Date Elisa Narvaez MD [address] [place] [address] PCP - General Gerontology 03/14/24 Cosme Gonzáles MD [employer] 07/09/20 Team Status: Active Member Role [...] January 24, 2025 End: January 24, 2025 Nuclear Scientist Relationship Specialty Start Date End Date Elisa Narvaez MD [address] [place] [address] PCP - General Gerontology 03/14/24 Cosme Gonzáles MD [employer] Cardiology 07/09/20 Nuclear Scientist Relationship Specialty Start Date End Date Elisa Narvaez MD [address] [place] [address] PCP - General Gerontology 03/14/24 Cosme Gonzáles MD [employer] Cardiology 07/09/20 Nuclear Scientist Relationship Specialty Start Date End Date Elisa Narvaez MD [address] [place] [address] PCP - General Gerontology 03/14/24 Cosme Gonzáles MD [employer] Cardiology 07/09/20 Nuclear Scientist Relationship Specialty Start Date End Date Elisa Narvaez MD [address] [place] [address] PCP - General Gerontology 03/14/24 Cosme Gonzáles MD [employer] Cardiology 07/09/20 Nuclear Scientist Relationship Specialty Start Date End Date Elisa Narvaez MD [address] [place] [address] PCP - General Gerontology 03/14/24 Cosme Gonzáles MD [employer] Cardiology 07/09/20 Nuclear Scientist Relationship Specialty Start Date End Date Elisa Narvaez MD [address] [place] [address] PCP - General Gerontology 03/14/24 Cosme Gonzáles MD [employer] 07/09/20 Team Status: Active Member Role [...] March 11, 2025 End: March 11, 2025 Nuclear Scientist Relationship Specialty Start Date End Date Elisa Narvaez MD [address] [place] [address] PCP - General Gerontology 03/14/24 Cosme Gonzáles MD [employer] Cardiology 07/09/20 Nuclear Scientist Relationship Specialty Start Date End Date Elisa Narvaez MD [address] [place] [address] PCP - General Gerontology 03/14/24 Cosme Gonzáles MD [employer] Cardiology 07/09/20 Nuclear Scientist Relationship Specialty Start Date End Date Elisa Narvaez MD [address] [place] [address] PCP - General Gerontology 03/14/24 Cosme Gonzáles MD [employer] 07/09/20 Team Status: Active Member Role/Relationship [...] Tahmina Vyas Attending Provider Active Start: A ugust 2024 Team Status: Inactive Member Role/Relationship Status [...] Tahmina Vyas Attending Provider Active Start: A ugust 2024 End: June 18, 2025 Team Status: [...] July 16, 2025 End: July 16, 2025 Nuclear Scientist Relationship Specialty Start Date End Date Elisa Narvaez MD [address] [place] [address] PCP - General Gerontology 03/14/24 Cosme Gonzáles MD [employer] Cardiology 07/09/20 Nuclear Scientist Relationship Specialty Start Date End Date Elisa Narvaez MD [address] [place] [address] PCP - General Gerontology 03/14/24 Cosme Gonzáles MD [employer] Cardiology 07/09/20 Nuclear Scientist Relationship Specialty Start Date End Date Elisa Narvaez MD [address] [place] [address] PCP - General Gerontology 03/14/24 Cosme Gonzáles MD [employer] Cardiology 07/09/20 Nuclear Scientist Relationship Specialty Start Date End Date Elisa Narvaez MD [address] [place] [address] PCP - General Gerontology 03/14/24 Cosme Gonzáles MD [employer] 07/09/20 Team Status: Active Member Role/Relationship [...] 2025 End: June 18, 2025 Dr. Cosme oGnzáles MD Attending physician Active Start: June 18, [...] section and content) DATE CREATED AUTHOR 06/20/2022 [facility] DATE CREATED AUTHOR AUTHOR'S ORGANIZ ATION 05/27/2024 [facility] DATE CREATED AUTHOR AUTHOR'S ORGANIZ ATION 09/06/2025 [facility] DATE CREATED AUTHOR AUTHOR'S ORGANIZ ATION 09/07/2025 [facility] Inactive Administered Medications - up to 3 [...] BE BASED ON THE PRIMARY CLINICAL RECORDS. [facility] [facility]. provides no warranty or guarantee of the accuracy or completeness of information in this document.
[2025-11-05 08:35] LABS: Ammonia 25.5 umol/L (16-60)
== END ==
LOC: OLS.SW 05:00
PROVIDERS: PCP Internal Medicine; Visit Provider Internal Medicine
DX: N17.9 Acute kidney failure, unspecified (principal)
CPT/HCPCS: 36415; 82140